=== PATIENT | female | born 1935 | race Caucasian/White ===

== ENCOUNTER 2017-10-06 12:40 | Emergency (ER) | payer MEDICARE, SELFPAY ==
[2017-10-06 12:41] VITALS: BP 212/99; PULSE 59; RESP 16; TEMP 36.2; O2SAT 96; BMI 29.2
--- NOTE | 2017-10-06 13:00 | RAD_ITS ---
STUDY: X-RAY - RIGHT ANKLE REASON FOR EXAM: Female, 81 years old. Pain following a fall. TECHNIQUE: 3 view(s) of the ankle. COMPARISON: None. FINDINGS: Normal visualized distal tibia and fibula. Normal medial and lateral malleoli. Normal tibiotalar articulation and ankle mortise. Plantar spur. The visualized subtalar, talonavicular, calcaneocuboid and tarsal articulations are normal. Diffuse soft tissue swelling. RAD/Ankle min 3 Views IMPRESSION: Diffuse soft tissue swelling. Electronically Signed: Hans Puga MD at 13:37 EDT Tel [phone], Service support ,
--- NOTE | 2017-10-06 13:07 | RAD_ITS ---
STUDY: X-RAY - LEFT WRIST REASON FOR EXAM: Female, 81 years old. Pain following a fall. TECHNIQUE: 3 view(s) of the wrist were obtained. COMPARISON: None. FINDINGS: There is a comminuted nondisplaced fracture of the distal radial metaphysis with dorsal angulation of the articular surface. Avulsion fracture of the ulnar styloid. Normal radiocarpal articulation. Normal distal radioulnar articulation. Normal carpal bones. Normal carpal articulations. There is degenerative arthrosis of the carpometacarpal articulation of the thumb. Normal second through fifth carpometacarpal articulations. Normal visualized metacarpal bones. Soft tissue swelling. RAD/Wrist min 3 Views IMPRESSION: Comminuted fracture of the distal radial metaphysis with dorsal facing. Avulsion fracture of the ulnar styloid. Soft tissue swelling. Electronically Signed: Hans Puga MD at 13:36 EDT Tel [phone], Service support ,
--- NOTE | 2017-10-06 14:43 | ED.VISSUMM ---
- ER Visit Summary Date of Service: 10/06/17 Chief Complaint: [] History of Present Illness: The patient is a 81 F who was working in her bedroom cleaning out dressings. She went to stand up and her hand slipped and she fell. She sustained a FOOSH injury to the left nondominant wrist. She also notes pain to the and swelling to the right ankle. She is on orthopedic surgeon last year but she is not sure who it was. Patient denies any other injuries. She does note that her blood pressure has been significantly elevated recently. She has been working with her doctor to adjust the medications. She is not concerned with her elevated blood pressure Physical Examination: Afebrile vital signs are stable noted hypertension Gen: Well-nourished well-developed Head: Normocephalic atraumatic Eyes: Perrl EOMI ENT: TMs clear no rhinorrhea moist mucous membranes Neck: Supple no lymphadenopathy no JVD nontender CVS: Regular rate rhythm no murmurs normal S1-S2 Respiratory: No distress clear to auscultation bilaterally chest nontender Abdomen: Soft nontender nondistended normal bowel sounds no masses Back: Nontender Extremity: There is a left wrist deformity. Neurovascular intact distally. The right ankle shows swelling over the lateral malleolus. No fibular head tenderness no fifth metatarsal tenderness medially there is no pain or swelling Skin: Normal color no rash Neuro: alert orientated ?3 CN II-XII intact normal strength sensation reflexes gait cerebellar Psych: Normal affect normal mood Test Results: Ankle x-rays showed no fracture. The wrist films demonstrated a comminuted distal radius fracture with ulnar styloid fracture noted displacement. Emergency Department Course and Treatment: I spoke with Dr. Bowens. I placed her in the AP plaster splint. I will write her for [place] and have her follow-up in the office. For the ankle should be placed in an air splint. Impression: 1. Right ankle sprain 2. Left distal radius and ulnar fracture 3. Splint by emergency physician This note was generated with [place] 100e dictation software. It may contain incorrect words, spelling, and punctuation that were not noted in review of the chart prior to signing ED Disposition - Plan for ED Patient: Disposition: Home or Assisted Living Chief Complaint: Fall Instructions: ED Fx Wrist General Prescriptions: Hydrocodone Bitart/Apap 5-325 [[place] 5/325] 1 tab PO Q6H PRN PRN 3 Days #12 tab PRN Reason: Pain Referrals: Jacob Bowens DO [STAFF PHYSICIAN] - As soon as possible
== END 2017-10-06 15:25 | disposition home or self-care (01) ==
PROVIDERS: Emergency Provider Emergency Medicine; Family Provider Internal Medicine; PCP Internal Medicine
DX: S52.612A Displaced fracture of left ulna styloid process, initial encounter for closed fracture (principal); S52.502A Unspecified fracture of the lower end of left radius, initial encounter for closed fracture; S93.401A Sprain of unspecified ligament of right ankle, initial encounter; W01.0XXA Fall on same level from slipping, tripping and stumbling without subsequent striking against object, initial encounter; Y93.E9 Activity, other interior property and clothing maintenance; Y92.003 Bedroom of unspecified non-institutional (private) residence as the place of occurrence of the external cause; Y99.9 Unspecified external cause status; I10 Essential (primary) hypertension; Z79.82 Long term (current) use of aspirin; Z79.899 Other long term (current) drug therapy; Z87.891 Personal history of nicotine dependence
CPT/HCPCS: 29125; 73110; 73610; 99284

== ENCOUNTER 2017-10-14 07:57 | Day surgery (SDC) | payer MEDICARE, SELFPAY ==
[2017-10-14] VITALS (7 sets, daily range): BP systolic 171–205; BP diastolic 64–95; PULSE 45–68; RESP 14–16; TEMP 35.7–36.2; O2SAT 93–98; BMI 29.0
--- NOTE | 2017-10-14 08:05 | EKG12_ITS ---
Test Reason : PRE OP Blood Pressure : / mmHG Vent. Rate : 055 BPM Atrial Rate : 055 BPM P-R Int : 178 ms QRS Dur : 084 ms QT Int : 438 ms P-R-T Axes : 070 018 062 degrees QTc Int : 419 ms Sinus bradycardia with Premature atrial complexes Nonspecific ST segment abnormality Confirmed by RAINA FERNANDEZ, JAMES ([id number]), metropolitan editor ROBERTO HERBERT ([id number]) on 10/16/2017 1:46:47 PM Referred By: Teresa Morris Confirmed By:JAMES PARIS MD
[2017-10-14 08:45] LABS: Hematocrit 35.1 % (37-47); Hemoglobin 11.5 g/dl (12.0-15.0); Mean Corp Hgb Conc 32.8 g/gl (32-36); Mean Corpuscular Hgb 31.9 pg (27.0-32.0); Mean Corpuscular Volume 97.2 fL (81-99); Platelet Count 224 K/mm3 (150-450); RBC Distribution Width CV 12.6 % (11.6-14.6); Red Blood Count 3.61 M/mm3 (4.2-5.4); White Blood Count 6.4 K/mm3 (4.4-11.0)
[2017-10-14 08:46] LABS: Scan Indicated on CBC? Y/N NO
[2017-10-14 08:54] LABS: Anion Gap 8 (5-15); BUN 18 mg/dL (7-18); BUN/Creat Ratio 25.6 RATIO (10-20); Calcium,Total 8.8 mg/dL (8.5-10.1); Chloride 109 mmol/L (98-107); EST Glomerular Filtration Rate 85 mL/min (>60); Est Glom Filt Rate - Afr Amer 103 mL/min (>60); Estimated Creatinine Clearance 37.12 ml/min; Glucose 106 mg/dL (74-106); Potassium 3.6 mmol/L (3.5-5.1); Sodium Level 144 mmol/L (136-145)
--- NOTE | 2017-10-14 09:08 | RAD_ITS ---
STUDY: X-RAY - LEFT WRIST REASON FOR EXAM: ORIF of left wrist. TECHNIQUE: 2 fluoroscopic view(s) of the wrist were obtained. COMPARISON: Radiographs 10/06/2017. FINDINGS: There is an orthopedic plate and screws transfixing a distal radial fracture in anatomical alignment and position. There is an ulnar styloid process avulsion fracture. There is arthrosis of the triscaphe articulation. Electronically Signed: Lex Jiménez MD at 12:22 EDT Tel , Service support , RAD/Wrist 2 Views
--- NOTE | 2017-10-14 09:12 | DCINST_ITS ---
Discharge Diet: No Restrictions - keep dressing clean, dry, and intact; elevate above heart, move fingers as much as possible, call with concerns, follow up in 2 weeks Discharge Activity: May Not Drive May shower in (days): 1 Ice area for (Minutes): 20 - Every hour while awake. Weight Bearing Status: Weight bearing as tolerated Keep extremity elevated above heart level: Operative Extremity Call your doctor if your incision/area has: Continuous Slow Oozing, Sudden Increased Bleeding, Increased Pain/ Swelling, Increased Redness, Foul Smelling Discharge Call your doctor if you observe: Fever of 101 or Higher, Coldness, Increased Pain, Numbness or Tingling, Change in Color, Calf discomfort Allergies/Adverse Reactions: Allergies amantadine Allergy (Verified 10/08/17 08:22) Rash cephalexin Allergy (Verified 10/08/17 08:22) Rash erythromycin base Allergy (Verified 10/08/17 08:22) Rash hydrochlorothiazide Allergy (Verified 10/08/17 08:22) Rash IVP DYE Allergy (Uncoded 04/13/17 17:28) Rash Medications to take at Discharge Alendronate Sodium [Fosamax] 70 mg PO Q7D@0700 12/06/16 Aspirin [Aspirin, Baby] 81 mg PO DAILY@0800 12/06/16 Atenolol [Tenormin (beta alejandra)] 25 mg PO DAILY 12/06/16 Atorvastatin Calcium [Lipitor] 20 mg PO QHS 12/06/16 Brimonidine Tartrate [Alphagan P] 1 drop EACHEYE DAILY 12/06/16 Calcium Carbonate/Vitamin D3 [Calcium 600-Vit D3 800 Tablet] 1 each PO DAILY 04/14 Cholecalciferol (Vitamin D3) [Vitamin D3] 2,000 unit PO DAILY 12/06/16 Clobetasol Propionate 15 gm TP DAILY 12/06/16 Latanoprost 0.005% [Xalatan Opthalmic] 1 drop RIGHT EYE QHS 12/06/16 Losartan Potassium [Cozaar] 100 mg PO DAILY 12/06/16 Multivit-Min/FA/Lycopen/Lutein [Centrum Silver Tablet] 1 each PO DAILY 12/06/16 Timolol 0.5% [Timoptic] 1 drop EACH EYE BID 12/06/16 Hydrocodone Bitart/Apap 5-325 [[place] 5/325] 1 tab PO Q6H PRN PRN 3 Days #12 tab 10/06/17 Terazosin HCl [Hytrin] 2 mg PO QHS 10/06/17 Furosemide [Lasix] 20 mg PO QODAY 10/13/17 Potassium Chloride 10 meq PO QODAY 10/13/17 Hydrocodone Bitart/Apap 5-325 [[place] 5MG-325MG] 1 - 2 tablet PO Q6H PRN PRN 5 Days #56 tablet 10/14/17 The following prescriptions were given: Hydrocodone Bitart/Apap 5-325 [[place] 5MG-325MG] 1 - 2 tablet PO Q6H PRN PRN 5 Days #56 tablet PRN Reason: Pain Primary Care Physician: Anay Barnard MD [Primary Care Provider] - Please Follow Up With: Teresa Morris, - [phone]
--- NOTE | 2017-10-14 09:12 | OP.PCM_ITS ---
Report of Operation Date of Procedure: 10/14/17 Pre-Operative Diagnosis: left distal radius fracture Post-Operative Diagnosis: same Surgery/Procedure Performed:: orif left distal radius Type of Anesthesia:: General Anesthesiologist: Kai Marrero Estimated Blood Loss (mL): minimal Fluids Replaced: 700cc lr Description of Procedure: Preoperative note An 81-year-old female who fell onto outstretched left wrist. Deformity on x- ray confirms left distal radius fracture patient was seen in the emergency room x-rayed and then seen in the clinic by myself. Wrist benefits and alternatives surgery discussed with patient. Patient is fairly osteoporotic bone we did discuss the option of pinning and cast however family elected proceed with left distal radius open reduction internal fixation repair is indicated. Risks including but not limited to blood loss, blood clot, infection, neurovascular injury, failure procedure, loss of life and loss of limb. Family is aware would like proceed as above. operative note Patient seen and examined preoperative holding area. Left arm is marked. Patient is brought to the operating room placed supine on the operating table. Signing, anesthesia, antibiotics were administered. Left arm was prepped and draped in usual sterile fashion with a tourniquet around her upper arm. Used fluoroscopy to measure out the length of our incision. Timeout was performed. The left arm was elevated exsanguinated tourniquet was raised to pressure of 250 torr. Then used a 15 blade cut the skin dissect down with tenotomy to the level of the FCR the FCR was then removed ulnarly and dissected down to the FCR fascia was then excised we then moved down to the pronator quadratus which was excised sharply from its radial insertion and swept ulnarly as well. We then were able to visualize the fracture site. We pulled some tension on the traction on the distally were able to then debride out the fracture site of dental pick and irrigated the incision with copious amounts sterile saline. We then measured out our 2.4 variable angle locking plate which was placed and confirmed on AP and lateral radiographs using a guidewire K wire to transfix the plate to the bone. We then started with a cortical screw into the radial styloid this is measured appropriately and started drilled and measured appropriately and then placed the screws and transfixed the plate down to bone. We then refill the remaining screws distally with locking screws Due to her quite osteoporotic bone. At that point we did have the most proximal aspect of the plate a little bit elevated off the bone to the bio transfix the proximal end of the plate to the bone we increase her volar tilt were able to get her back to neutral. We then placed 2 cortical screws in the proximal aspect of the plate these were both 14 mm 2.7 cortical screws and again in the proximal shaft. This brought the plate down the bone and also increase her volar tilt back to get back to neutral. We placed 1 more 2.4 locking screw in the ulnar piece just distal just proximal to the most distal row. This is just for further fixation due to her osteophytic bone hernández. We confirmed in multiple planes AP lateral PA as well as the 20? lateral to ensure that we were not in the joint which were not. We irrigated the incision with copious amounts of sterile saline. The incision was closed with 3-0 subcutaneous and a running 4- 0 Monocryl sterile dressings and a splint was applied. Patient tolerated procedure well there are no complications the tourniquet was deflated for total working time of 60 minutes. Patient was transferred to recovery room in stable condition there were no complications. 2.4 variable angle locking screws were used 114, 418, 120 2.7 cortical screws we is 14 point millimeters, 2 Postoperative note Hospital pharmacy has pain prescription next Discussed at length the importance of flexing and extending hands to prevent stiffness Follow-up in 2 weeks Keep splint clean and dry Call with concerns This note was generated with [employer] in [employer] software. It may contain incorrect words, spelling, and punctuation that were not noted in checking the note before signing.
[2017-10-14] MEDS: Clindamycin 900 MG/50 ML BAG 75 MG IV (09:15)
[2017-10-14] MEDS: Mupirocin Ointment 22gm Tube 1 APPLIC (09:40)
== END 2017-10-14 14:25 | disposition home or self-care (01) ==
LOC: SDC 07:57 → AC 07:58
PROVIDERS: Family Provider Internal Medicine; PCP Internal Medicine; Visit Provider Orthopaedic Surgery
PROC: (CPT 25607; principal; 2017-10-14 09:15)
DX: S52.592A Other fractures of lower end of left radius, initial encounter for closed fracture (principal); W19.XXXA Unspecified fall, initial encounter; Y93.9 Activity, unspecified; Y92.9 Unspecified place or not applicable; Y99.9 Unspecified external cause status; I27.20 Pulmonary hypertension, unspecified; K21.9 Gastro-esophageal reflux disease without esophagitis; Z78.0 Asymptomatic menopausal state; Z79.82 Long term (current) use of aspirin; Z79.899 Other long term (current) drug therapy; Z87.891 Personal history of nicotine dependence
CPT/HCPCS: 01830; 25607; 73100; 76000; 80048; 85027; 93005; J7120; J2405

== ENCOUNTER → 2017-10-27 12:38 | Outpatient (CLI) | payer MEDICARE, SELFPAY ==
--- NOTE | 2017-10-27 12:40 | RAD_ITS ---
STUDY: X-RAY - LEFT WRIST REASON FOR EXAM: Pain. TECHNIQUE: 3 view(s) of the wrist were obtained. COMPARISON: Fluoroscopic views 10/14/2017. FINDINGS: There is an orthopedic plate and screws transfixing a distal radial fracture in anatomic position and alignment. There is an ulnar styloid process avulsion fracture. Normal radiocarpal articulation. Normal distal radioulnar articulation. Normal carpal bones. There is joint space narrowing of the triscaphe articulation. There is joint space narrowing of the carpometacarpal articulation of the thumb. Normal second through fifth carpometacarpal articulations. Normal visualized metacarpal bones. There is an overlying cast. RAD/Wrist min 3 Views IMPRESSION: ORIF of distal radial fracture without interval change. 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 Electronically Signed: Lex Jiménez MD at 16:20 EDT Tel , Service support ,
== END ==
PROVIDERS: Family Provider Internal Medicine; PCP Internal Medicine; Visit Provider Orthopaedic Surgery
DX: S52.502A Unspecified fracture of the lower end of left radius, initial encounter for closed fracture (principal); X58.XXXA Exposure to other specified factors, initial encounter; Y93.9 Activity, unspecified; Y92.9 Unspecified place or not applicable; Y99.9 Unspecified external cause status
CPT/HCPCS: 73110

== ENCOUNTER 2017-11-24 11:00 | Outpatient (RCR) | payer MEDICARE, SELFPAY ==
--- NOTE | 2017-11-24 12:50 | HP.OTEVAL ---
Patient's Visit Information BERNADETTE ELIZABETH is a 81 year old F, referred to Occupational Therapy by Teresa Morris DO, with a diagnosis of left wrist fx. Date of Evaluation: 10/28/17 Occupational Therapist: Faustina Cheney, OTR/L, CHT - Subjective Subjective: Pt states she broke her left wrist on October 06, 2017, states she fell back on her wrist while cleaning her room. pt underwent sx on October 14, 2017. Pt is right handed, and was ind. with all BADLS and IADLs. - Pain left forearm 4 Pain Intensity Range: 1, 8 - ROM Forearm: right supination 80 left 45 Wrist: right 70/65 left 35/25 ROM Comments: pt demo limited composite fist on carlos: 1# from closer - Strength Php Website Developer: right 60# left unable Lateral Pinch: right 6# left NT Tripod Pinch: right 4# left NT - Sensation Sensation Comments: denies any changes - Hand/Wrist Evaluation Total Score of Pain & Functional Sections: 14 - Goals Goal:: pt will demo a increase in left environmental remediation specialist strength by 25# or greater to increase pts ind.with BADLs and IADLS by d/c Goal:: pt will demo increase in left wrist flex/ext by 15 degrees or greater - a increase in left forearm supination to 70 degress or greater to increase ind with BADLs and IADLS Goal:: pt will report pain no greater than 2/10 with use of left hand for BADLS and IADLS by d/c Goal:: pt will demo understanding of scar mtg and desensitization by end of 1st session. - Rehabilitation General Assessment: S/P left wrist ORIF on October 14, 2017. pt demo limited wrist, forearm ROM and a decrease in pts left environmental remediation specialist and pinch strength. The limitations increase need of assistance with pts BADLS and IADLS. pt would benefit from skilled OTR/L, CHT services to increase pts return of her ROM and strength. Due to pts high co-pay- pt request HEP- pt was given HEP of PROM.AROM and to return in 3 weeks to progress pt to a PRE. pt and pts family is agreeable to this POC. Rehabilitation Potential: Excellent - Anticipated Interventions Anticipated Interventions: A/AAROM/PROM, Strengthening, Scar Care, Triggerpoint Release, Modalities, Joint Protection/Energy Conservation, Fine Motor Coord/Ady - Visit Plan Frequency: one visit in 3 weeks TEXT: Thank you for the opportunity to evaluate your patient. For Medicare and Medicare HMO plans, please review the plan of care and approve it. It will need to be FAXED BACK to us at [phone] for Medicare purposes. Please let me know if there are questions or concerns regarding this plan of care. Physician Signature: Date:
--- NOTE | 2017-11-24 12:51 | HP.OTDCSUM_ITS ---
HP - OT D/C Summary It has been my pleasure to treat BERNADETTE ELIZABETH under orders from Teresa Morris DO, for the diagnosis of left wrist fx for a total of 2 visit(s). Please see the following information for a summary of their discharge status. - Overall Improvement % Improvement: 85 - Objective Objective/Function: left wrist 55/45 a increase from 35/25. left fisher troll line 10# increase from trace-(due to high insurance co-pay pt will progress with strength using HEP) - Goals Patient Goals: Regain Mobility, Regain Strength, Decrease Pain, Improve Fine Motor Skills, Use Hand/Wrist/Arm Normally Again, Increase ROM Goal:: pt will demo a increase in left fisher troll line strength by 25# or greater to increase pts ind.with BADLs and IADLS by d/c Goal:: pt will demo increase in left wrist flex/ext by 15 degrees or greater - a increase in left forearm supination to 70 degress or greater to increase ind with BADLs and IADLS Goal:: pt will report pain no greater than 2/10 with use of left hand for BADLS and IADLS by d/c Goal:: pt will demo understanding of scar mtg and desensitization by end of 1st session. - Plan Plan: D/C with HEP due to high co-pay - D/C Information Discharge Comments: Due to pts high co-pay- pt was given HEP at inital OT session- pt has made good gains with her ROM and was given PRE today to cont with increasing her strength- pt is ind.with all BADLS and IADLS at this time- pt states most pain is at night when trying to sleep- therapist rec'd most comfortable position is best and use brace as needed- If there are questions or concerns regarding this patient's occupational therapy , please fell free to call me at [phone]. Thank you for the referral of this patient. Sincerely, Faustina Cheney, OTR/L, CHT
== END 2017-11-24 19:00 | disposition home or self-care (01) ==
LOC: OT 11:00
PROVIDERS: Family Provider Internal Medicine; PCP Internal Medicine; Visit Provider Orthopaedic Surgery
DX: Z98.890 Other specified postprocedural states (principal)
CPT/HCPCS: 97110; 97166; 97530

== ENCOUNTER 2018-02-04 11:43 | Observation (INO) | payer MEDICARE, SELFPAY ==
[2018-02-04] VITALS (14 sets, daily range): BP systolic 132–196; BP diastolic 51–92; PULSE 40–67; RESP 14–24; TEMP 36.3–36.6; O2SAT 93–99; BMI 28.5; BMI 26.9
--- NOTE | 2018-02-04 11:54 | RAD_ITS ---
STUDY: X-RAY CHEST REASON FOR EXAM: Female, 82 years old. Chest pain for 6 hours. TECHNIQUE: Single AP upright portable chest view. COMPARISON: 04/13/2017 FINDINGS: EKG wires overlie chest and upper abdomen. Lungs appear well ventilated and clear of active focal pulmonary consolidation with air bronchograms, large pleural effusion or abnormally dilated pulmonary vascularity. There is no demonstrated pleural abnormality. No large gross pneumothorax suggested. Mildly enlarged heart for projection. Normal mediastinum and myke. Normal visualized pulmonary arteries. Moderately calcified visualized aortic knob. Nonacute visualized thoracic spine, ribs, clavicles and shoulders. There is no demonstrated abnormality of the visualized soft tissue structures of the upper abdomen. No subdiaphragmatic free air seen grossly. RAD/Chest 1 View (Portable) IMPRESSION: No active pulmonary disease identified. Mild cardiomegaly. Clinical correlation for cardiomyopathy and/or pericardial effusion recommended. Electronically Signed: Fabian Whaley, at 13:31 EDT Tel , Service support ,
[2018-02-04 12:13] LABS: Absolute Lymphocyte Count 1.38 X10^3/ul (0.83-4.51); Absolute Neutrophil Count 4.4 X10^3/uL (2.0-7.7); Basophil# 0.02 X10^3/uL; Basophil% 0.3 % (0-1); Eosinophil# 0.19 X10^3/uL; Hematocrit 41.3 % (37-47); Hemoglobin 13.4 g/dl (12.0-15.0); Lymphocyte # 1.38 X10^3/ul (4.0); Mean Corp Hgb Conc 32.4 g/gl (32-36); Mean Corpuscular Hgb 30.4 pg (27.0-32.0); Mean Corpuscular Volume 93.7 fL (81-99); Mean Platelet Vol. 10.4 fl (6.2-12.0); Monocyte# 0.29 X10^3/uL; Monocyte% 4.6 % (0-10); Neutrophil # 4.38 X10^3/uL (2.7-7.7); Neutrophil % 70.1 % (47-70); POSITIVE COUNT NO; POSITIVE DIFFERENTIAL NO; POSITIVE MORPHOLOGY NO; Platelet Count 188 K/mm3 (150-450); RBC Distribution Width CV 12.9 % (11.6-14.6); RBC Distribution Width SD 44.4 fl (35.1-43.9); Red Blood Count 4.41 M/mm3 (4.2-5.4); White Blood Count 6.3 K/mm3 (4.4-11.0)
[2018-02-04] MEDS: Aspirin 81 MG TAB.CHEW 324 MG PO (12:17)
[2018-02-04 12:29] LABS: Anion Gap 7 (5-15); BUN 17 mg/dL (7-18); BUN/Creat Ratio 19.6 RATIO (10-20); Calcium,Total 8.8 mg/dL (8.5-10.1); Chloride 106 mmol/L (98-107); Creatinine, Serum 0.87 mg/dL (0.55-1.02); EST Glomerular Filtration Rate 67 mL/min (>60); Est Glom Filt Rate - Afr Amer 80 mL/min (>60); Estimated Creatinine Clearance 40.11 ml/min; Glucose 155 mg/dL (74-106); Potassium 3.9 mmol/L (3.5-5.1); Sodium Level 140 mmol/L (136-145)
--- NOTE | 2018-02-04 13:06 | ED.DCSUM_ITS ---
- ER Visit Summary Date of Service: 02/04/18 Chief Complaint: [chest pain] History of Present Illness: The patient is a 82 F [that presents with 5-6 hours of substernal nonradiating chest tightness that began around 6:30 AM this morning. She denies any exacerbating or relieving factors. No associated nausea, vomiting, diaphoresis, or shortness of breath. She had a heart cath in 2003 that she states was normal. She has her cardiac risk factors including hypertension and hypercholesterolemia. No DVT or PE history or risk factors. She denies any shortness of breath. No symptoms of orthopnea. She has no other complaints. No recent fever or illness.] Physical Examination: [General: The patient appears well and in no apparent distress. Patient is resting comfortably on cart. Skin: Warm, dry, no pallor noted. No rash. Head: Normocephalic, atraumatic Neck: Supple, nontender. Eye: PERRLA, EOMI ENT: Moist mucus membranes, pharynx within normal limits. Cardiovascular: Regular Rate and Rhythm, no gallups or rubs Respiratory: Patient is in no distress, no accessory muscle use, lungs are clear to auscultation, no wheezing, rales or rhonchi Musculoskeletal: normal ROM, no deformity, no tenderness, no swelling. 2+ radial and DP pulses symmetric. GI: No tenderness to palpation, no masses appreciated. No rebound, guarding, or rigidity noted. Neurological: A&O, normal strength and sensation. Psychiatric: Cooperative] Test Results: [EKG shows sinus rhythm with a rate of 64, nonspecific ST and T- wave changes, no acute ischemic changes or arrhythmia. Overall unchanged from prior EKG September 2017. CBC and BMP within normal limits. Troponin indeterminate at 0.112. Chest x-ray shows no acute process on my evaluation.] Emergency Department Course and Treatment: [Patient was given aspirin and nitroglycerin. Following nitro on reevaluation at 1247 her pain is resolved and her blood pressure is improved. She denies any chest pain or shortness of breath. She is currently pain-free. At this time I feel she requires admission for further cardiac evaluation. Patient is agreeable with this plan. Patient was discussed with the hospitalist for admission.] Treatment Plan: [See above] Disposition: [Admission] Impression: [Chest Pain, indeterminate troponin] This note was generated with Dragon dictation software. It may contain incorrect words, spelling, and punctuation that were not noted in review of the chart prior to signing ED Disposition - Plan for ED Patient: Chief Complaint: Chest Pain Referrals: Anay Barnard MD [Primary Care Provider] -
--- NOTE | 2018-02-04 14:46 | ECHOD_ITS ---
Reason For Study: CHEST PAIN Procedure This was a 2D Doppler, Color Flow transthoracic echocardiogram. Exam performed portable in patient room. Left Ventricle Normal size and thickness. The estimated ejection fraction is 65 %. Normal diastology for age. No regional wall motion abnormalities noted. Right Ventricle Normal size and thickness. Normal systolic function. Atria Normal left atrium. Normal right atrium. Normal atrial septum. Mitral Valve The mitral valve is structurally normal. No prolapse or stenosis seen. Tricuspid Valve Normal tricuspid valve. Trivial tricuspid valve insufficiency. Right ventricular systolic pressure estimated to be 33 mmHg. Aortic Valve Normal aortic valve. Trisinus/trileaflet aortic valve. Pulmonic Valve Normal pulmonic valve. Trivial pulmonic valve insufficiency. Great Vessels Normal aortic root. Normal arch. Normal inferior vena cava. Inferior vena cava collapse with sniff. Pericardium/Pleural No pericardial effusion. MMode/2D Measurements & Calculations LVIDd: 3.6 cm IVSd: 0.96 cm Ao root diam: 3.2 cm LVIDs: 2.5 cm LVPWd: 0.92 cm LA dimension: 3.8 cm RVDd: 2.5 cm FS: 31.9 % LAV(MOD-bp): 51.9 ml LA A4 area: 18.2 cm2 RA A4 area: 11.1 cm2 LAV(MOD-bp) Indexed: 30.2 ml/m2 LAV(MOD-sp2): 52.6 ml LAV(MOD-sp4): 51.5 ml Doppler Measurements & Calculations MV E max antonio: 77.9 cm/sec Lat Peak E' Antonio: 4.6 cm/sec Med Peak E' Antonio: 3.9 cm/sec MV A max antonio: 85.2 cm/sec E/E' lat: 17.0 E/E' med: 19.8 MV E/A: 0.91 Ao V2 max: 111.0 cm/sec LV V1 max: 95.9 cm/sec PA V2 max: 92.8 cm/sec Ao max P.9 mmHg LV V1 max P.7 mmHg TR max antonio: 248.1 cm/sec TR max P.9 mmHg Interpretation Summary The estimated ejection fraction is 65 %. Normal diastology for age. Trivial tricuspid valve insufficiency. Right ventricular systolic pressure estimated to be 33 mmHg. Compared to echo report dated 04/13/2017, LV function has remained the same, but RVSP has decreased from 60to 33 mm Hg. Ordering Physician: Garett Romero Referring Physician: Teresa Morris Performed By: Denise Ron, JAMESCS, RVT
[2018-02-04] MEDS: Heparin Injection (Vial) 5,000 UNIT/ML VIAL 5000 UNIT SC ×2 (16:43→21:54)
[2018-02-04] MEDS: Clopidogrel Bisulfate 300 MG Tablet PO (16:52)
--- NOTE | 2018-02-04 17:10 | PCM.HP.STD ---
Problem List (1) Chest pain Status: Acute (2) HLD (hyperlipidemia) Status: Chronic (3) HTN (hypertension) Status: Chronic History of Present Illness Date of Admission: 02/04/18 Chief Complaint: chest pain The patient is a 82 year old F who presents to the ER with c/c of chest pain. The pain woke her up about 0630 today. She describes it as a midsternal pressure radiating across her back, not radiating into her neck/arms. She has some associated nausea and broke into a hot sweat. It was a constant pain that resolved in the ER about 1300 after receiving asa and nitro in the ER. She had a similar pain about 3 weeks ago, and also about a year ago at which point she came to the hospital and had a chest pain workup including negative stress and was sent home. She has had a cath in 2013 with [facility] without any stents placed. Mom, dad, brother, and sister all had CAD. She smoked about 40 years ago for only a few years according to her. [] Past Medical History Past Medical History (Chronic Problems): Chronic Problems (Last Updated 10/08/17 @ 08:24 by Kayla Storm) HLD (hyperlipidemia) (Chronic) HTN (hypertension) (Chronic) Medical History: Medical History (Last Updated 10/08/17 @ 08:24 by Kayla Storm) Hernia K46.9 Allergies amantadine Allergy (Verified 02/04/18 12:13) Rash cephalexin Allergy (Verified 02/04/18 12:13) Rash erythromycin base Allergy (Verified 02/04/18 12:13) Rash hydrochlorothiazide Allergy (Verified 02/04/18 12:13) Rash IVP DYE Allergy (Uncoded 02/04/18 12:13) Rash Home Medications: Ambulatory Orders Medication Instructions Recorded Alendronate Sodium [Fosamax] 70 mg PO Q7D@0700 12/06/16 Aspirin [Aspirin, Baby] 81 mg PO DAILY@0800 12/06/16 Atenolol [Tenormin (beta alejandra)] 25 mg PO DAILY 12/06/16 Atorvastatin Calcium [Lipitor] 20 mg PO QODAY 12/06/16 Brimonidine Tartrate [Alphagan P] 1 drp RIGHT EYE DAILY 12/06/16 Calcium Carbonate/Vitamin D3 1 ea PO DAILY 12/06/16 [Calcium 600-Vit D3 800 Tablet] Cholecalciferol (Vitamin D3) 2,000 unit PO DAILY 12/06/16 [Vitamin D3] Clobetasol Propionate 15 gm TP DAILY 12/06/16 Latanoprost 0.005% [Xalatan 1 drp EACHEYE QHS 12/06/16 Opthalmic] Losartan Potassium [Cozaar] 100 mg PO DAILY 12/06/16 Multivit-Min/FA/Lycopen/Lutein 1 ea PO DAILY 12/06/16 [Centrum Silver Tablet] Timolol 0.5% [Timoptic] 1 drp RIGHT EYE BID 12/06/16 Terazosin HCl [Hytrin] 20 mg PO QHS 10/06/17 Furosemide [Lasix] 20 mg PO DAILY 10/13/17 Potassium Chloride 10 meq PO QODAY 10/13/17 Surgical History: Surgical History (Last Updated 10/27/17 @ 12:37 by Kayla Storm) s/p left wrist ORIF 10/14/17 Surgical History: herniorrhaphy Psychiatric History: No pertinent psych hx 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 Denies: Light Headedness, Orthopnea, Palpitations, Paroxysmal Noc. Dyspnea, Syncope Respiratory: Denies: Cough, Shortness of breath at rest, Sputum production Gastrointestinal: Reports: Nausea. Denies: Abdominal Pain, Vomiting Genitourinary: Denies: Dysuria Musculoskeletal: Denies: Joint Pain, Joint Tenderness Skin: Denies: Rash, Wounds Neurological: Denies: Numbness, Tingling, Focal weakness Psychiatric: Denies: Anxiety, Depression, Homicidal Ideations, Suicidal Ideations Hematologic/ Lymphatic: Denies: Easy Bruising, Easy Bleeding VTE Information - Inpt Only VTE Present on Admission: No VTE Mechan Device Prophylaxis: None VTE Pharm Prophylaxis ordered?: Yes - Physical Exam General: Alert, Oriented x3, Cooperative HEENT: Atraumatic, PERRLA, EOMI, Normocephalic Neck: Supple, No JVD, Negative Carotid Bruits Lungs: Clear to auscultation, Normal air movement Cardiovascular: Regular rate, No murmurs Abdomen: Bowel Sounds Present, Soft, Non Tender Extremities: No edema, Capillary Refill Less than 3 Seconds Skin: No rashes, No breakdown Musculoskeletal: No Tenderness to Palpation of Joints or Extremities Neurological: Cranial nerves II-XII grossly intact Psych/Mental Status: Normal Affect, Appropriate Vital Signs Temp Pulse Resp BP Pulse Ox 97.4 F L 63 18 176/53 H 98 02/04/18 14:30 02/04/18 14:30 02/04/18 14:30 02/04/18 14:30 02/04/18 14:30 Oxygen Delivery Method Room Air Weight: 149 lb 4.047 oz Body Mass Index (BMI) 26.9 Laboratory Tests Past 24 Hrs 02/04/18 16:04 Troponin I 0.177 H Assessment/Plan All Active Problems (Last Updated 10/08/17 @ 08:24 by Kayla Storm) Chest pain (Acute) 1. Chest pain - indeterminate troponin. Negative stress <1 year ago. Strong family hx. Consult cardiology. Pt will be placed in PCU on tele. Cycle enzymes. Repeat EKG in AM. Nitro PRN. Continue asa, plavix, statin, atenolol, losartan. Echo pending. 2. HTN - poorly controlled. trend and adjust meds as needed. 3. HLD - on statin. check lipid panel. 4. Hyperglycemia - check a1c. DVT ppx: heparin This patient was seen by Samm Sidhu PA-C under the supervision of Doctor Romero.
--- NOTE | 2018-02-04 17:38 | PCM.CONS.C ---
Problem List (1) HLD (hyperlipidemia) Status: Chronic (2) HTN (hypertension) Status: Chronic (3) Chest pain Status: Acute Reason for Consult Date of Consultation: 02/04/18 Reason for Consultation: Chest pain, abnormal troponin, hypertension, hyperlipidemia History of Present Illness: The patient is a 82 year old F, with a history of hypertension, hypercholesterolemia, nondiabetic, no previous known coronary disease, previously admitted in March 2017 with substernal chest pain and pressure which woke her up from a sound sleep. She was ruled out for myocardial infarction underwent a non-walking nuclear stress test at [facility] which was negative for inducible ischemia. Patient was in normal health up until this morning when she developed 9 out of 10 substernal chest pressure and heaviness that woke her up from a sound sleep. The pain lasted about 4 5 hours, and when it did not go away, she was brought emergently to the emergency room at [facility] an EKG showed normal sinus rhythm, normal axis, normal intervals, no acute changes. Chest x-ray was negative except for mild cardiomegaly. Her blood pressure was found to be 172/92, the patient was given 1 sublingual nitroglycerin and her pain resolved. Her initial troponin was 0.112 and increase to 0.177. She is currently chest pain-free. Patient admits to having a previous catheterization in 2003 which was reportedly normal per the patient. She denies having any stents. On further history she denies any change in her exercise capacity, exertional angina, shortness of breath or dyspnea on exertion. She reports she is compliant with her medications.. [] Past Medical History Allergies/Adverse Reactions: Allergies amantadine Allergy (Verified 02/04/18 12:13) Rash cephalexin Allergy (Verified 02/04/18 12:13) Rash erythromycin base Allergy (Verified 02/04/18 12:13) Rash hydrochlorothiazide Allergy (Verified 02/04/18 12:13) Rash IVP DYE Allergy (Uncoded 02/04/18 12:13) Rash Home Medications: Ambulatory Orders Medication Instructions Recorded Alendronate Sodium [Fosamax] 70 mg PO Q7D@0700 12/06/16 Aspirin [Aspirin, Baby] 81 mg PO DAILY@0800 12/06/16 Atenolol [Tenormin (beta alejandra)] 25 mg PO DAILY 12/06/16 Atorvastatin Calcium [Lipitor] 20 mg PO QODAY 12/06/16 Brimonidine Tartrate [Alphagan P] 1 drp RIGHT EYE DAILY 12/06/16 Calcium Carbonate/Vitamin D3 1 ea PO DAILY 12/06/16 [Calcium 600-Vit D3 800 Tablet] Cholecalciferol (Vitamin D3) 2,000 unit PO DAILY 12/06/16 [Vitamin D3] Clobetasol Propionate 15 gm TP DAILY 12/06/16 Latanoprost 0.005% [Xalatan 1 drp EACHEYE QHS 12/06/16 Opthalmic] Losartan Potassium [Cozaar] 100 mg PO DAILY 12/06/16 Multivit-Min/FA/Lycopen/Lutein 1 ea PO DAILY 12/06/16 [Centrum Silver Tablet] Timolol 0.5% [Timoptic] 1 drp RIGHT EYE BID 12/06/16 Terazosin HCl [Hytrin] 20 mg PO QHS 10/06/17 Furosemide [Lasix] 20 mg PO DAILY 10/13/17 Potassium Chloride 10 meq PO QODAY 10/13/17 Past Medical History (Chronic Problems): Chronic Problems (Last Updated 10/08/17 @ 08:24 by Kayla Storm) HLD (hyperlipidemia) (Chronic) HTN (hypertension) (Chronic) Surgical History: herniorrhaphy Psychiatric History: No pertinent psych hx 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 Denies: Shortness of Breath, Orthopnea, PND, Peripheral Edema, Palpitations, Lightheadedness, Dizziness, Near Syncope, Syncope Respiratory: Denies: Cough, Sputum Production, Hemoptysis Gastrointestinal: Denies: Hematemesis, Hematochezia, Melena Genitourinary: Denies: Dysuria, Hematuria Skin: Denies: Rash Subjectve: Patient laying in bed, no acute distress. Objective: Vital Signs Temp Pulse Resp BP Pulse Ox 97.4 F L 66 18 176/53 H 98 08/09/18 14:30 02/04/18 15:29 02/04/18 14:30 02/04/18 14:30 02/04/18 14:30 Oxygen Delivery Method Room Air Weight: 149 lb 4.047 oz Body Mass Index (BMI) 26.9 General: Awake, Alert, Oriented x 3 HEENT: PERRL, EOMI, Sclera Non Icteric Neck: Supple, Good ROM, No Lymph Node Enlargement Lungs: Clear to auscultation Cardiovascular: Regular Rhythm, Normal S1, Normal S2, No Murmurs, No Rubs, No Gallops 02/04/18 16:04: Troponin I 0.177 H Rhythm: EKG: As above ECHO: Pending Stress Test: Cardiac Cath: Pending PCI: CT Surgery: Holter monitor: EPS: PPM: CXR: Chest CT Scan: Assessment/Plan 1. Unstable angina: The patient has had a second episode of unstable angina which woke her up from a sound sleep, relieved with nitroglycerin, and abnormal troponins. Patient had a stress test in March 2017 which was negative for inducible ischemia. At this point I recommend the patient undergo a left her catheterization and coronary angiography to determine if she has any significant narrowings that may require intervention. To that end I recommend Plavix 3 mg ?1 now followed by 75 mg p.o. daily in addition to baby aspirin. She will continue her beta-alejandra, losartan, and I recommended nitroglycerin paste 1/2 inch every 8 hours to control her chest pain. If her coronary arteries show no significant coronary disease, she may require evaluation from a GI standpoint for esophageal spasm, particularly if she had just taken her alendronate recently. In addition I recommend a 2D echo with Doppler to determine if she has any pericardial disease, valvular abnormalities, or LV dysfunction. 2. Hyperlipidemia: The patient has a known history of hyperlipidemia. Recommend obtaining a fasting lipid profile. Continue Lipitor. 3. Thank you very much for the opportunity to participate in the cardiac care of your patient. Consultation time took place between 410 and 4:40 PM. Code Visit Inpatient E&M: 23762 Init Hosp L2
--- NOTE | 2018-02-04 17:43 | CON.PCM_ITS ---
Problem List (1) HLD (hyperlipidemia) Status: Chronic (2) HTN (hypertension) Status: Chronic (3) Chest pain Status: Acute Reason for Consult Date of Consultation: 02/04/18 Reason for Consultation: Chest pain, abnormal troponin, hypertension, hyperlipidemia History of Present Illness: The patient is a 82 year old F, with a history of hypertension, hypercholesterolemia, nondiabetic, no previous known coronary disease, previously admitted in March 2017 with substernal chest pain and pressure which woke her up from a sound sleep. She was ruled out for myocardial infarction underwent a non-walking nuclear stress test at [facility] which was negative for inducible ischemia. Patient was in normal health up until this morning when she developed 9 out of 10 substernal chest pressure and heaviness that woke her up from a sound sleep. The pain lasted about 4 5 hours, and when it did not go away, she was brought emergently to the emergency room at [facility] an EKG showed normal sinus rhythm, normal axis, normal intervals, no acute changes. Chest x- ray was negative except for mild cardiomegaly. Her blood pressure was found to be 172/92, the patient was given 1 sublingual nitroglycerin and her pain resolved. Her initial troponin was 0.112 and increase to 0.177. She is currently chest pain-free. Patient admits to having a previous catheterization in 2003 which was reportedly normal per the patient. She denies having any stents. On further history she denies any change in her exercise capacity, exertional angina, shortness of breath or dyspnea on exertion. She reports she is compliant with her medications.. [] Past Medical History Allergies/Adverse Reactions: Allergies amantadine Allergy (Verified 02/04/18 12:13) Rash cephalexin Allergy (Verified 02/04/18 12:13) Rash erythromycin base Allergy (Verified 02/04/18 12:13) Rash hydrochlorothiazide Allergy (Verified 02/04/18 12:13) Rash IVP DYE Allergy (Uncoded 02/04/18 12:13) Rash Home Medications: Ambulatory Orders Medication Instructions Recorded Alendronate Sodium [Fosamax] 70 mg PO Q7D@0700 12/06/16 Aspirin [Aspirin, Baby] 81 mg PO DAILY@0800 12/06/16 Atenolol [Tenormin (beta alejandra)] 25 mg PO DAILY 12/06/16 Atorvastatin Calcium [Lipitor] 20 mg PO QODAY 12/06/16 Brimonidine Tartrate [Alphagan P] 1 drp RIGHT EYE DAILY 12/06/16 Calcium Carbonate/Vitamin D3 1 ea PO DAILY 12/06/16 [Calcium 600-Vit D3 800 Tablet] Cholecalciferol (Vitamin D3) 2,000 unit PO DAILY 12/06/16 [Vitamin D3] Clobetasol Propionate 15 gm TP DAILY 12/06/16 Latanoprost 0.005% [Xalatan 1 drp EACHEYE QHS 12/06/16 Opthalmic] Losartan Potassium [Cozaar] 100 mg PO DAILY 12/06/16 Multivit-Min/FA/Lycopen/Lutein 1 ea PO DAILY 12/06/16 [Centrum Silver Tablet] Timolol 0.5% [Timoptic] 1 drp RIGHT EYE BID 12/06/16 Terazosin HCl [Hytrin] 20 mg PO QHS 10/06/17 Furosemide [Lasix] 20 mg PO DAILY 10/13/17 Potassium Chloride 10 meq PO QODAY 10/13/17 Past Medical History (Chronic Problems): Chronic Problems (Last Updated 10/08/17 @ 08:24 by Kayla Storm) HLD (hyperlipidemia) (Chronic) HTN (hypertension) (Chronic) Surgical History: herniorrhaphy Psychiatric History: No pertinent psych hx 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 Denies: Shortness of Breath, Orthopnea, PND, Peripheral Edema, Palpitations, Lightheadedness, Dizziness, Near Syncope, Syncope Respiratory: Denies: Cough, Sputum Production, Hemoptysis Gastrointestinal: Denies: Hematemesis, Hematochezia, Melena Genitourinary: Denies: Dysuria, Hematuria Skin: Denies: Rash Subjectve: Patient laying in bed, no acute distress. Objective: Vital Signs Temp Pulse Resp BP Pulse Ox 97.4 F L 66 18 176/53 H 98 08/09/18 14:30 02/04/18 15:29 02/04/18 14:30 02/04/18 14:30 02/04/18 14:30 Oxygen Delivery Method Room Air Weight: 149 lb 4.047 oz Body Mass Index (BMI) 26.9 General: Awake, Alert, Oriented x 3 HEENT: PERRL, EOMI, Sclera Non Icteric Neck: Supple, Good ROM, No Lymph Node Enlargement Lungs: Clear to auscultation Cardiovascular: Regular Rhythm, Normal S1, Normal S2, No Murmurs, No Rubs, No Gallops 02/04/18 16:04: Troponin I 0.177 H Rhythm: EKG: As above ECHO: Pending Stress Test: Cardiac Cath: Pending PCI: CT Surgery: Holter monitor: EPS: PPM: CXR: Chest CT Scan: Assessment/Plan 1. Unstable angina: The patient has had a second episode of unstable angina which woke her up from a sound sleep, relieved with nitroglycerin, and abnormal troponins. Patient had a stress test in March 2017 which was negative for inducible ischemia. At this point I recommend the patient undergo a left her catheterization and coronary angiography to determine if she has any significant narrowings that may require intervention. To that end I recommend Plavix 3 mg ?1 now followed by 75 mg p.o. daily in addition to baby aspirin. She will continue her beta-alejandra, losartan, and I recommended nitroglycerin paste 1/2 inch every 8 hours to control her chest pain. If her coronary arteries show no significant coronary disease, she may require evaluation from a GI standpoint for esophageal spasm, particularly if she had just taken her alendronate recently. In addition I recommend a 2D echo with Doppler to determine if she has any pericardial disease, valvular abnormalities, or LV dysfunction. 2. Hyperlipidemia: The patient has a known history of hyperlipidemia. Recommend obtaining a fasting lipid profile. Continue Lipitor. 3. Thank you very much for the opportunity to participate in the cardiac care of your patient. Consultation time took place between 410 and 4:40 PM. Code Visit Inpatient E&M: 30801 Init Hosp L2
[2018-02-04 18:06] LABS: Hemoglobin A1c 5.4 % (4.2-6.3)
[2018-02-04] MEDS: Doxazosin 4 MG Tablet 8 MG PO (20:14)
[2018-02-04] MEDS: amLODIPine 5 MG Tablet PO (20:14)
[2018-02-04] MEDS: Nitroglycerin Oint 1 INCH PACKET 0.5 INCH TRANSDERM. (20:24)
[2018-02-04 20:37] LABS: Cholesterol 153 mg/dL (200); High Density Lipoprotein 43 mg/dL; Triglycerides 103 mg/dL; Very Low Density Lipoprotein 21 mg/dL (5-40)
[2018-02-04] MEDS: Timolol 0.5% 5ML OPTH.BTL 1 DRP RIGHT EYE (21:54)
[2018-02-04] MEDS: Latanoprost 0.005% 1 Bottle 1 DRP EACH EYE (21:55)
[2018-02-04] MEDS: BRIMONIDINE 0.15% 5 ML Bottle 1 DRP RIGHT EYE (21:57)
[2018-02-05] VITALS (19 sets, daily range): BP systolic 114–184; BP diastolic 57–82; PULSE 48–64; RESP 14–18; TEMP 36.3–36.7; O2SAT 94–98
[2018-02-05 05:14] LABS: Absolute Lymphocyte Count 2.61 X10^3/ul (0.83-4.51); Absolute Neutrophil Count 2.9 X10^3/uL (2.0-7.7); Basophil# 0.03 X10^3/uL; Basophil% 0.5 % (0-1); Eosinophil# 0.23 X10^3/uL; Eosinophils% 3.8 % (0-5); Hematocrit 36.9 % (37-47); Hemoglobin 12.1 g/dl (12.0-15.0); Lymphocyte # 2.61 X10^3/ul (4.0); Lymphocyte % 42.8 % (19-41); Mean Corp Hgb Conc 32.8 g/gl (32-36); Mean Corpuscular Hgb 30.7 pg (27.0-32.0); Mean Corpuscular Volume 93.7 fL (81-99); Mean Platelet Vol. 9.8 fl (6.2-12.0); Monocyte# 0.38 X10^3/uL; Monocyte% 6.2 % (0-10); Neutrophil # 2.85 X10^3/uL (2.7-7.7); Neutrophil % 46.7 % (47-70); Platelet Count 177 K/mm3 (150-450); RBC Distribution Width SD 44.3 fl (35.1-43.9); Red Blood Count 3.94 M/mm3 (4.2-5.4); White Blood Count 6.1 K/mm3 (4.4-11.0)
[2018-02-05 05:15] LABS: POSITIVE COUNT NO; POSITIVE DIFFERENTIAL NO; POSITIVE MORPHOLOGY NO
[2018-02-05 05:30] LABS: Prothrombin Time (Protime)PT. 13.3 SECONDS (11.7-14.9)
[2018-02-05 05:31] LABS: Partial Thromboplast Time 44.5 Seconds (24.1-36.2)
[2018-02-05 05:34] LABS: Anion Gap 9 (5-15); BUN 19 mg/dL (7-18); BUN/Creat Ratio 22.7 RATIO (10-20); Calcium,Total 8.6 mg/dL (8.5-10.1); Chloride 107 mmol/L (98-107); Creatinine, Serum 0.84 mg/dL (0.55-1.02); EST Glomerular Filtration Rate 70 mL/min (>60); Est Glom Filt Rate - Afr Amer 84 mL/min (>60); Estimated Creatinine Clearance 41.54 ml/min; Glucose 96 mg/dL (74-106); Potassium 3.2 mmol/L (3.5-5.1); Sodium Level 143 mmol/L (136-145)
[2018-02-05] MEDS: Nitroglycerin Oint 1 INCH PACKET 0.5 INCH TRANSDERM. (06:23)
[2018-02-05] MEDS: 0.9% Normal Saline 1,000 ML 15 ML IV (06:23)
[2018-02-05] MEDS: Clopidogrel Bisulfate 75 MG Tablet PO (06:24)
[2018-02-05] MEDS: Aspirin 81 MG TAB.CHEW PO (06:24)
[2018-02-05] MEDS: Losartan Potassium 100 MG Tablet PO (06:25)
[2018-02-05] MEDS: Atenolol 25 MG Tablet PO (06:38)
[2018-02-05] MEDS: DiphenhydrAMINE 25 MG Capsule 50 MG PO (06:38)
[2018-02-05 06:39] LABS: Color, Urine Yellow (Yellow); Glucose, Dipstick Normal (Normal); Ketone-Dipstick 15 mg/dl (Negative); Leukocyte Esterase-Dipstick 25 /ul (Negative); Nitrite-Dipstick Negative (Negative); Occult Blood-Urine 50 /ul (Negative); Protein-Dipstick 15 mg/dl (Negative); Urine Bilirubin Dipstick Negative (Negative); Urine Clarity Clear (Clear); Urine Urobilinogen Normal (Normal)
--- NOTE | 2018-02-05 08:16 | CL.D_ITS ---
Patient Name: BERNADETTE ELIZABETH Study Date: 02/05/2018 Performing: Ernie Nolen MD Ht: 62.59 inches 159 cm : 1935 Wt: 149.91 lbs 68 kg Age: 82 Gender: female BSA: 1.7 PROCEDURE(S) PERFORMED NB20-RMA/COR/LV CLINICAL PROFILE AND INDICATIONS Indications: ACS <= 24 hrs, Worsening Angina, Suspected CAD Heart Failure: None Stress/Imaging Stress Test w/SPECT MPI: Yes Result: NegativeStress Test with SPECT MPI: Negative Angina Classification Anginal Classification w/in 2 Weeks: CCS IV CAD Presentations: Unstable angina. Comorbidities/Risk Factors: Hypertension Dyslipidemia CONCLUSIONS Normal coronary arteries Normal LV size, wall motion,and systolic function Normal Left Ventricular systolic function RECOMMENDATIONS Management as per referring Rail Director start imdur 30 mg daily. Successful Mynx closure device for severe HTN. DESCRIPTION OF PROCEDURE The patient arrived to the procedure lab. The risks and benefits of the procedure as well as a full d escription of our services here and current unavailability of surgical backup were fully explained to the patient and/or their significant other prior to the catheterization. The Timeout was completed, verifying the correct patient and procedure. The patient's procedural site was prepped and draped in the usual fashion. Local anesthetic was given subcutaneously to right groin region with Lidocaine 2%. Using a modified Seldinger technique, arterial access was obtained via the right femoral artery, a 4 Fr sheath was inserted Left Coronary Artery selective angiography was performed in multiple views us ing a 4 Fr. JL5 catheter. Right Coronary Artery selective angiography was then performed in multiple views using a 4 Fr. 3DRC catheter. Left Ventriculography was performed in CORDERO projection using a 4 Fr . Pigtail catheter. LV to AO pullback pressures were then recorded.Contrast was injected through the sheath and the Right Iliac and Femoral artery were assessed for possible closure device.The arterial sheath was pulled and a Mynx closure device was deployed for hemostasis CORONARY ANGIOGRAPHY DOMINANCE: Right Dominant LEFT HEART ASSESSMENT Left Ventricular Ejection Fraction: by LV Gram 65 % Normal LV wall motion Normal Left Ventricular systolic function Normal Left Ventricular systolic function Normal Left Ventricular systolic function LEFT MAIN: Angiographically normal LEFT ANTERIOR DECENDING ARTERY: Angiographically normal CIRCUMFLEX ARTERY: Angiographically normal RIGHT CORONARY ARTERY: Angiographically normal COMPLICATIONS No Complications PROCEDURE MEDICATIONS Versed 1 mg IV Oxygen: 2 L/min via nasal cannula Nitro 200 mcg IC 02/05/2018 07:55:29 Nitro Paste 1 in to LCQ, 0.5inch Nitro Paste removed from L deltoid applied from PCU 02/05/2018 08:08: 32 Pepcid 20 mg IV 02/05/2018 07:41:07 Solu-medrol 125 mg IV 02/05/2018 07:42:14 SUMMARY OF HEMODYNAMIC DATA Time AIR REST ECG 07:28:04 AO 202/67 (114) SA 07:48:34 LV 211/-10, 18 07:54:46 LV 210/-11, 16 07:54:52 LVp 211/-11, 16 07:54:57 AOp 210/69 (120) 07:55:02 Signed By Ernie Nolen MD On 02/05/2018 08:16:22 Ernie Nolen MD
[2018-02-05] MEDS: Timolol 0.5% 5ML OPTH.BTL 1 DRP RIGHT EYE (10:18)
[2018-02-05] MEDS: Isosorbide Mononitrate 30 MG Tablet PO (10:19)
[2018-02-05] MEDS: BRIMONIDINE 0.15% 5 ML Bottle 1 DRP RIGHT EYE (10:20)
--- NOTE | 2018-02-05 11:25 | CASEMGMT ---
RN DENA NOTE: Intro role to RN CM. Pt resting in bed, awake, alert/oriented. Daughter, Jessa, in room with pt. Demographics, PCP, and pharmacy verified. Pt reports she lives with her , is independent @ home, still drives, has no current DME, and denies needs for DME at this time. Pt wishes to return home upon discharge. Jessa states will be providing transportation for pt on discharge and will also be staying with her overnight. Pt and daughter deny having any needs or concerns at this time. CM to follow for discharge planning needs that may arise. Sandra BSN RN CM
--- NOTE | 2018-02-05 12:06 | PCM.DC ---
You will use the following diet at home:: No restrictions Your food should be the consistency of: Regular Your liquids should be the consistency of: Regular/Thin Discharge Activity: Return to Normal Activity Weight Bearing Status: Full weight bearing Allergies/Adverse Reactions: Allergies amantadine Allergy (Verified 02/04/18 12:13) Rash cephalexin Allergy (Verified 02/04/18 12:13) Rash erythromycin base Allergy (Verified 02/04/18 12:13) Rash hydrochlorothiazide Allergy (Verified 02/04/18 12:13) Rash IVP DYE Allergy (Uncoded 02/04/18 12:13) Rash Medications to take at Discharge Alendronate Sodium [Fosamax] 70 mg PO Q7D@0712/06/16 Aspirin [Aspirin, Baby] 81 mg PO DAILY@0812/06/16 Atenolol [Tenormin (beta alejandra)] 25 mg PO DAILY 12/06/16 Atorvastatin Calcium [Lipitor] 20 mg PO QODAY 12/06/16 Brimonidine Tartrate [Alphagan P] 1 drp RIGHT EYE DAILY 12/06/16 Calcium Carbonate/Vitamin D3 [Calcium 600-Vit D3 800 Tablet] 1 ea PO DAILY 12/06/16 Cholecalciferol (Vitamin D3) [Vitamin D3] 2,000 unit PO DAILY 12/06/16 Clobetasol Propionate 15 gm TP DAILY 12/06/16 Latanoprost 0.005% [Xalatan Opthalmic] 1 drp EACHEYE QHS 12/06/16 Losartan Potassium [Cozaar] 100 mg PO DAILY 12/06/16 Multivit-Min/FA/Lycopen/Lutein [Centrum Silver Tablet] 1 ea PO DAILY 12/06/16 Timolol 0.5% [Timoptic] 1 drp RIGHT EYE BID 12/06/16 Terazosin HCl [Hytrin] 20 mg PO QHS 10/06/17 Furosemide [Lasix] 20 mg PO DAILY 10/13/17 Amlodipine Besylate [Norvasc] 5 mg PO DAILY #30 tab 02/05/18 Isosorbide Mononitrate [Imdur] 30 mg PO DAILY #30 tab 02/05/18 Potassium Chloride 20 meq PO QODAY #60 tablet.er 02/05/18 The following prescriptions were given: Amlodipine Besylate [Norvasc] 5 mg PO DAILY #30 tab Isosorbide Mononitrate [Imdur] 30 mg PO DAILY #30 tab Potassium Chloride 20 meq PO QODAY #60 tablet.er Primary Care Physician: Anay Barnard MD [Primary Care Provider] - Please follow up with your Primary Care Physician in: next week Test Results: Test results from this visit will be discussed in further detail at your follow-up appointment, if applicable. Please Follow Up With: Ernie Nolen MD
[2018-02-05] MEDS: Heparin Injection (Vial) 5,000 UNIT/ML VIAL 5000 UNIT SC (13:26)
--- NOTE | 2018-02-05 15:02 | PCM.DC.SUM ---
Discharge Date and Diagnosis Date of Admission: 02/04/18 Date of Discharge: 02/05/18 - Primary Discharge Diagnosis Chest pain-musculoskeletal hyperlipidemia Hypertension - Secondary Discharge Diagnosis Chronic Problems (Last Updated 10/08/17 @ 08:24 by Kayla Storm) HLD (hyperlipidemia) (Chronic) HTN (hypertension) (Chronic) Hospital Course and Treatment Imaging Results: Heart cath: CONCLUSIONS Normal coronary arteries Normal LV size, wall motion,and systolic function Normal Left Ventricular systolic function Consults: Callum - Cardiology Operations: None Procedures: Cardiac catheterization Summary of Care Provided: Physical exam on day of discharge: General: Resting comfortably NAD Psych: A/Ox3 normal affect HEENT: [place]ARR[place] AT NC Neck: Supple NT CV: RRR no m/t/r/g/h Resp: CTA Abd: [id number] Soft NT no guarding or rigidity Ext: DP2+= no edema Skin: W/D normal turgor Lymph/Heme: No active bleeding or adenopathy Neuro: CN2-12 intact Hospital course: The patient is a 82 year old F with a history of hyperlipidemia, hypertension, former smoker who presented to the emergency room with chest pain that woke her up about 630 on the day of admission. It is described as a pressure radiating across her back and associated with nausea and sweating. She had a significant family history and her mother father and siblings with coronary artery disease. She had a cardiac catheter which was cleaned back in [address] Frey. She also had a stress test less than a year ago for chest pain of a similar sensation which was negative and she was discharged home at that time. With her recent negative stress tests and indeterminate troponin it was decided that cardiology would be consulted. Workup in the ER included negative EKG, negative chest x-ray, however troponin was indeterminate. She was admitted and placed in the PCU on telemetry. She was taken for heart catheterization the following morning. Her catheterization was negative for any underlying coronary disease. She had no further chest pain. She felt that her chest pain was musculoskeletal in etiology. She did have poorly controlled hypertension while she was here and was started on Norvasc. LDL was 89, she is discharged home in stable condition was advised to follow with her PCP in 1-2 weeks as well as with Dr. Nolen as directed. This patient was seen by Samm Sidhu PA-C under the supervision of Doctor Romero. [] Discharge Diet: Low fat/ Low Cholesterol, 2000 mg Sodium Diet Discharge Activity: Return to Normal Activity Weight Bearing Status: Full weight bearing Home Medications: Medications to take at Discharge Alendronate Sodium [Fosamax] 70 mg PO Q7D@0700 12/06/16 Aspirin [Aspirin, Baby] 81 mg PO DAILY@0800 12/06/16 Atenolol [Tenormin (beta alejandra)] 25 mg PO DAILY 12/06/16 Atorvastatin Calcium [Lipitor] 20 mg PO QODAY 12/06/16 Brimonidine Tartrate [Alphagan P] 1 drp RIGHT EYE DAILY 12/06/16 Calcium Carbonate/Vitamin D3 [Calcium 600-Vit D3 800 Tablet] 1 ea PO DAILY 12/06/16 Cholecalciferol (Vitamin D3) [Vitamin D3] 2,000 unit PO DAILY 12/06/16 Clobetasol Propionate 15 gm TP DAILY 12/06/16 Latanoprost 0.005% [Xalatan Opthalmic] 1 drp EACHEYE QHS 12/06/16 Losartan Potassium [Cozaar] 100 mg PO DAILY 12/06/16 Multivit-Min/FA/Lycopen/Lutein [Centrum Silver Tablet] 1 ea PO DAILY 12/06/16 Timolol 0.5% [Timoptic] 1 drp RIGHT EYE BID 12/06/16 Terazosin HCl [Hytrin] 20 mg PO QHS 10/06/17 Furosemide [Lasix] 20 mg PO DAILY 10/13/17 Amlodipine Besylate [Norvasc] 5 mg PO DAILY #30 tab 02/05/18 Isosorbide Mononitrate [Imdur] 30 mg PO DAILY #30 tab 02/05/18 Potassium Chloride 20 meq PO QODAY #60 tablet.er 02/05/18 Following Prescrptions Were Given to Patient: Amlodipine Besylate [Norvasc] 5 mg PO DAILY #30 tab Isosorbide Mononitrate [Imdur] 30 mg PO DAILY #30 tab Potassium Chloride 20 meq PO QODAY #60 tablet.er Primary Care Physician: Anay Barnard MD [Primary Care Provider] - Please follow up with your Primary Care Physician in: next week Please Follow Up With: Ernie Nolen MD When: as directed Disposition: Home Minutes spent on discharge:: 35 Patient Condition:: Stable Medical Necessity - Tobacco Use Smoking Status: Former smoker Tobacco Use: Non-smoker Meaningful Use Info Meaningful Use Diagnoses (Choose all that apply): None applicable
== END 2018-02-05 12:07 | disposition home or self-care (01) ==
LOC: ED 12:55 → PCU 13:47
PROVIDERS: Internal Medicine Cardiovascular Disease; Physician Assistant; Admitting Provider Internal Medicine; Emergency Provider Emergency Medicine; Family Provider Internal Medicine; PCP Internal Medicine; Visit Provider Internal Medicine
DX: R07.89 Other chest pain (principal); E78.5 Hyperlipidemia, unspecified; I10 Essential (primary) hypertension; R06.09 Other forms of dyspnea; R06.02 Shortness of breath; Z79.899 Other long term (current) drug therapy; Z79.82 Long term (current) use of aspirin; Z87.891 Personal history of nicotine dependence; Z82.49 Family history of ischemic heart disease and other diseases of the circulatory system; R73.9 Hyperglycemia, unspecified
CPT/HCPCS: 36415; 71045; 80048; 80061; 81002; 83036; 84484; 85025; 85610; 85730; 93005; 93306; 93458; 96372; 99152; 99218; 99283; C1760; J7030; Q9967; A4216; C1769; C1894; G0378; J3490

== ENCOUNTER → 2019-05-16 11:30 | Outpatient (CLI) | payer MEDICARE, SELFPAY ==
[2019-05-12 11:22] VITALS: BMI 26.9
[2019-05-16 12:39] LABS: AST(SGOT) 22 U/L (15-37); Alanine Aminotransfer ALT/SGPT 25 U/L (13-56); Alkaline Phosphatase 73 U/L (45-117); Bilirubin, Direct 0.19 mg/dL (0.00-0.30); Cholesterol 198 mg/dL (200); Globulin 4.1 g/dL (2.2-4.2); High Density Lipoprotein 53 mg/dL; Protein, Total 8.1 g/dL (6.4-8.2); Triglycerides 139 mg/dL; Very Low Density Lipoprotein 28 mg/dL (5-40)
== END ==
PROVIDERS: Family Provider Internal Medicine; PCP Internal Medicine; Referring Provider Internal Medicine Cardiovascular Disease; Visit Provider Internal Medicine Cardiovascular Disease
DX: E78.5 Hyperlipidemia, unspecified (principal)
CPT/HCPCS: 36415; 80061; 80076

== ENCOUNTER 2020-07-27 09:06 | Outpatient (RCR) | payer MEDICARE, SELFPAY ==
[2020-03-07 13:35] VITALS: BMI 27.6
== END 2020-07-27 23:59 ==
LOC: IMMUN 09:06
PROVIDERS: PCP Internal Medicine; Visit Provider Family Medicine
DX: Z23 Encounter for immunization (principal)
CPT/HCPCS: 0011A; 0012A; 91301

== ENCOUNTER → 2020-10-22 12:53 | Outpatient (CLI) | payer MEDICARE, SELFPAY ==
[2020-10-05 13:03] VITALS: BMI 25.6
--- NOTE | 2020-10-22 12:54 | CDU_ITS ---
Reason For Study: SYNCOPE Rt. Velocities/BP Lt. Velocities/BP Prox CCA 74.2/12.9 cm/sec. Prox CCA 83.3/11.6 cm/sec. Mid CCA 69.0/12.9 cm/sec. Mid CCA 69.0/16.8 cm/sec. Dist CCA 78.1/15.5 cm/sec. Dist CCA 65.1/15.5 cm/sec. Prox ICA 64.2/12.0 cm/sec. Prox ICA 72.9/18.1 cm/sec. Mid ICA 65.5/15.9 cm/sec. Mid ICA 95.0/23.3 cm/sec. Dist ICA 85.9/20.7 cm/sec. Dist ICA 123.5/24.8 cm/sec. Rt. ICA/CCA = 85.9/78.1=1.1. Lt. ICA/CCA = 123.5/83.3=1.5. Prox ECA 71.6/2.5 cm/sec. Prox ECA 71.6/7.7 cm/sec. Rt. Vert. 54.6/10.3 cm/sec. Lt. Vert. 53.4/12.7 cm/sec. Right Extracranial There is intimal thickening but no significant atherosclerotic plaque noted in the right common carotid artery. There is homogeneous, irregular atherosclerotic plaque noted in the right internal carotid artery. There is homogeneous, smooth atherosclerotic plaque noted in the right external carotid artery. Antegrade flow is noted in the right vertebral artery. Left Extracranial There is homogeneous, smooth atherosclerotic plaque noted in the left common carotid artery. There is intimal thickening but no significant atherosclerotic plaque noted in the left internal carotid artery. There is intimal thickening but no significant atherosclerotic plaque noted in the left external carotid artery. Antegrade flow is noted in the left vertebral artery. Procedure Carotid Duplex 33731. Exam performed in department. VL/Carotid Duplex Ultrasound Interpretation Summary Mild (<50%) stenosis right extracranial internal carotid. Mild (<50%) stenosis left extracranial internal carotid. Flow within the vertebral arteries is antegrade bilaterally. Ordering Physician: Faustina Hernandez Referring Physician: Anay Barnard Performed By: Denise Ron RDCS, MARK
== END ==
PROVIDERS: PCP Internal Medicine; Referring Provider Physician Assistant Medical; Visit Provider Physician Assistant Medical
DX: R55 Syncope and collapse (principal)
CPT/HCPCS: 93225; 93226; 93880

== ENCOUNTER → 2022-02-13 | Outpatient (CLI) | payer MEDICARE, SELFPAY ==
[2022-02-13 13:16] LABS: Absolute Lymphocyte Count 1.72 X10^3/uL (0.83-4.51); Absolute Neutrophil Count 3.7 X10^3/uL (2.0-7.7); Basophil# 0.04 X10^3/uL; Basophil% 0.6 % (0-1); Eosinophil# 0.32 X10^3/uL; Eosinophils% 5.2 % (0-5); Hematocrit 31.7 % (37-47); Hemoglobin 10.6 g/dL (12.0-15.0); Lymphocyte # 1.72 X10^3/ul (0.83-4.51); Lymphocyte % 27.7 % (19-41); Mean Corp Hgb Conc 33.4 g/dL (32-36); Mean Corpuscular Hgb 32.6 pg (27.0-32.0); Mean Corpuscular Volume 97.5 fL (81-99); Monocyte% 6.4 % (0-10); NRBC Flagged by Analyzer 0 % (0-5); Neutrophil # 3.71 X10^3/uL (2.7-7.7); Neutrophil % 59.8 % (47-70); Platelet Count 210 K/mm3 (150-450); RBC Distribution Width CV 12.9 % (11.6-14.6); RBC Distribution Width SD 45.6 fl (35.1-43.9); RET-HE 34.6 pg (30-35); Red Blood Count 3.25 M/mm3 (4.2-5.4); Reticulocyte Count 1.34 % (0.5-1.5); White Blood Count 6.2 K/mm3 (4.4-11.0)
[2022-02-13 13:39] LABS: Iron 80 ug/dL (50-170); Iron Binding Capacity,Total 233 ug/dL (250-450)
[2022-02-13 13:40] LABS: Ferritin 142 ng/mL (8-252); PERCENT IRON SATURATION 34.3 % (15.0-55.0)
== END | disposition home or self-care (01) ==
LOC: LAB 12:38
PROVIDERS: PCP Internal Medicine; Visit Provider Nurse Practitioner Adult Health
DX: I10 Essential (primary) hypertension (principal); D64.9 Anemia, unspecified; R19.5 Other fecal abnormalities
CPT/HCPCS: 36415; 82728; 83540; 83550; 85025; 85045

== ENCOUNTER 2022-02-21 15:30 | Inpatient (IN) | payer MEDICARE, SELFPAY ==
[2022-02-21] VITALS (9 sets, daily range): BP systolic 113–153; BP diastolic 74–126; PULSE 71–128; RESP 16–20; TEMP 36–36.6; O2SAT 98–100; BMI 23.0; BMI 23.2
--- NOTE | 2022-02-21 16:12 | EKG12_ITS ---
Test Reason : CP Blood Pressure : / mmHG Vent. Rate : 115 BPM Atrial Rate : 000 BPM P-R Int : 000 ms QRS Dur : 086 ms QT Int : 322 ms P-R-T Axes : 000 020 156 degrees QTc Int : 445 ms Atrial fibrillation with rapid ventricular response Nonspecific ST abnormality Abnormal QRS-T angle, consider primary T wave abnormality Abnormal ECG Confirmed by ELIZA FERNANDEZ, GLADYS ([id number]), mapping editor LUH ASHLEY ([id number]) on 02/24/2022 9:41:08 AM Referred By: JUNIOR Confirmed By:ANIYA KAY MD
[2022-02-21 17:04] LABS: Absolute Neutrophil Count 5.2 X10^3/uL (2.0-7.7); Basophil# 0.04 X10^3/uL; Basophil% 0.5 % (0-1); Eosinophil# 0.24 X10^3/uL; Eosinophils% 3.1 % (0-5); Hemoglobin 11.5 g/dL (12.0-15.0); Lymphocyte % 22.1 % (19-41); Mean Corp Hgb Conc 32.9 g/dL (32-36); Mean Corpuscular Hgb 31.3 pg (27.0-32.0); Mean Corpuscular Volume 95.4 fL (81-99); Mean Platelet Vol. 10.2 fl (6.2-12.0); Monocyte% 6.5 % (0-10); NRBC Flagged by Analyzer 0 % (0-5); Neutrophil % 67.7 % (47-70); Platelet Count 221 K/mm3 (150-450); RBC Distribution Width CV 12.6 % (11.6-14.6); RBC Distribution Width SD 43.9 fl (35.1-43.9); Red Blood Count 3.67 M/mm3 (4.2-5.4); White Blood Count 7.7 K/mm3 (4.4-11.0)
--- NOTE | 2022-02-21 17:20 | RAD_ITS ---
STUDY: X-RAY CHEST REASON FOR EXAM: Female, 86 years old. chest pain TECHNIQUE: PA and lateral COMPARISON: 02/04/2018 FINDINGS: Minimal discoid atelectasis or linear scarring at the lung bases.. There is no demonstrated pleural abnormality. Normal size heart. Normal mediastinum and myke. Normal visualized pulmonary arteries. Mildly calcified aortic arch and descending thoracic aorta. Normal visualized thoracic spine. Normal visualized ribs, clavicles, and shoulders. There is no demonstrated abnormality of the visualized soft tissue structures of the upper abdomen. RAD/Chest PA and Lateral IMPRESSION: Minimal bibasilar discoid atelectasis or linear scarring. Electronically Signed: Gary Whaley MD at 17:33 EDT ,
[2022-02-21 17:22] LABS: Anion Gap 7 (5-15); BUN 29 mg/dL (7-18); BUN/Creat Ratio 17.5 RATIO (10-20); Calcium,Total 9.4 mg/dL (8.5-10.1); Chloride 108 mmol/L (98-107); Creatinine, Serum 1.66 mg/dL (0.55-1.02); EST Glomerular Filtration Rate 31 mL/min (>60); Est Glom Filt Rate - Afr Amer 38 mL/min (>60); Glucose 110 mg/dL (74-106); Potassium 3.6 mmol/L (3.5-5.1); Sodium Level 138 mmol/L (136-145); Troponin-I HS (w/2H Reflex) 153 pg/mL (3.0-54.0)
--- NOTE | 2022-02-21 17:30 | HP.PCM.HOS_ITS ---
HPI - General General Date of Admission: 02/21/22 Date of Service: 02/21/22 Chief Complaint: chest pain HPI Narrative BERNADETTE ELIZABETH, is a 86 F with a PMH as outlined who presents via the ED on 02/21/2022 with a complaint of chest pain. Chest pain started one day ago, and was pressure like, with no aggravating or relieving factors. She denied any lightheadedness, palpitations, dizziness, fever or chills. Chest pressure recurred again today, so she went to see her PCP and was asked to come in to the ED. she denies having such chest pain in the past. She denied any palpitations, dizziness, nausea vomiting or diarrhea. Review of systems otherwise negative. Vitals were BP of 124/112, CT of 110; patient was in afib. She was saturating at 99% on room air. . CBC showed Hb of 11.5, wbc of 7.7 and platelets of 221. Chemistry showed sodium of 138 with Cr of 1.66 and potassium of 3.6. Initial troponin was 153. CXR showed no acute cardiopulmonary process and EKG afib with RVR. She is being admitted to be managed for nonstemi as well as new onset A. fib with RVR. [facility] Medical History Acquired keratoderma Anemia Essential hypertension Glaucoma Hemorrhage of anus and rectum Hernia HLD (hyperlipidemia) HTN (hypertension) Near syncope Osteoporosis Palpitations Positive occult stool blood test Sweating Syncope Umbilical hernia Home Medications atorvastatin 20 mg tablet 20 mg PO QODAY Cholesterol 12/06/16 [History Last Taken 02/19/22] brimonidine 0.1 % eye drops 1 drp RIGHT EYE DAILY EYE DROPS 12/06/16 [History Last Taken 02/20/22] cholecalciferol (vitamin D3) 50 mcg (2,000 unit) capsule 2,000 unit PO DAILY Supplement 12/06/16 [History Last Taken 02/03/18 14:00] clobetasol 0.05 % topical ointment 15 gm TP DAILY vaginal cream 12/06/16 [History Last Taken 02/02/18 23:00] latanoprost 0.005 % eye drops 1 drp EACHEYE QHS eye drops 12/06/16 [History Last Taken 02/20/22] losartan 100 mg tablet 100 mg PO DAILY Blood pressure/heart 12/06/16 [History Last Taken 02/21/22] timolol maleate 0.5 % eye drops 1 drp RIGHT EYE BID eye drops 12/06/16 [History Last Taken 02/20/22] amlodipine 2.5 mg tablet 2.5 mg PO DAILY bp 07/29/18 [History Last Taken 02/21/22] omeprazole 20 mg capsule,delayed release 20 mg PO DAILY gerd 07/29/18 [History Last Taken 02/21/22] potassium chloride 10 mEq tablet,extended release 10 meq PO .COMPLEX supplement 05/12/19 [History Last Taken 02/20/22] alendronate 70 mg tablet 70 mg PO Q7D@0700 Bones 09/12/19 [History Last Taken 02/16/22] furosemide 20 mg tablet 20 mg PO Q OTHER DAY water pill 03/07/20 [History Last Taken 02/16/22] levothyroxine 25 mcg capsule 25 mcg PO DAILY thyroid 10/05/20 [History Last Taken 02/21/22] ascorbic acid (vitamin C) 1,000 mg tablet 1 g PO DAILY supplement 11/21/20 [History Last Taken Unknown] carvedilol 12.5 mg tablet 12.5 mg PO BID bp 11/21/20 [History Last Taken 02/21/22] Allergy/AdvReac Type Severity Reaction Status Date / Time amantadine Allergy Rash Verified 02/13/22 11:25 cephalexin Allergy Rash Verified 02/13/22 11:25 erythromycin base Allergy Rash Verified 02/13/22 11:25 hydrochlorothiazide Allergy Rash Verified 02/13/22 11:25 IVP DYE Allergy Rash Uncoded 02/13/22 11:25 Family History Mother CAD (coronary artery disease) Father CAD (coronary artery disease) Brother CAD (coronary artery disease) Sister CAD (coronary artery disease) Surgical History H/O hernia repair History of hysteroscopy History of left heart catheterization (02/05/18) s/p left wrist ORIF Tubal ligation status Social History (Updated 02/21/22 @ 17:[address] Woo Tucker MD) household members: none Smoking Status: Former smoker quit date: 06/29/76 substance use type: does not use ROS Review of Systems ROS Unobtainable: Denies due to encephalopathy Constitutional Constitutional: Denies anorexia, chills, fatigue, fever(s), malaise or weakness Eyes Eyes: Denies change in vision ENT HEENT: Reports nasal discharge; Denies dysphagia or headache(s) Cardiovascular Cardiovascular: Reports chest pain; Denies dyspnea on exertion, edema, lightheadedness, orthopnea, palpitations, paroxysmal nocturnal dyspnea, rapid heart rate or syncope Respiratory/Chest Respiratory/Chest: Denies cough, dyspnea, productive cough, shortness of breath at rest or shortness of breath with exertion Gastrointestinal Gastrointestinal: Denies abdominal pain, constipation, diarrhea, nausea or vomiting Genitourinary Genitourinary: Reports burning urination; Denies difficulty urinating Musculoskeletal Musculoskeletal: Denies back pain or joint pain Neurologic Neurologic: Denies confusion, dizziness, focal weakness, headache(s), numbness, seizure-like activity, seizures or syncope Psychiatric Psychiatric: Denies anxiety or depression Endocrine Endocrinology: Denies change in body appearance Hematologic/Lymphatic Hematologic/Lymphatic: Denies anemia Vital Signs Vital Signs Vital Signs: 02/21/22 15:31 02/21/22 15:34 02/21/22 16:36 Temperature 96.8 F L 96.8 F L Temperature Source Temporal Temporal Pulse Rate 91 91 Respiratory Rate 18 18 Respiratory Effort Blood Pressure 113/74 113/74 Blood Pressure Mean 87 87 Pulse Ox 100 100 100 Oxygen Delivery Method Room Air Room Air Room Air 02/21/22 16:37 02/21/22 16:56 Temperature Temperature Source Pulse Rate 110 H Respiratory Rate Respiratory Effort Normal Blood Pressure 124/112 H Blood Pressure Mean 116 Pulse Ox Oxygen Delivery Method Weight Weight: 126 lb Body Mass Index (BMI) 23.0 Physical Exam Const alert, oriented x3 and no apparent distress General Appearance: cooperative HEENT normocephalic, head/scalp atraumatic, hearing grossly normal bilaterally and moist oral mucous membranes Mouth: oral and palatal mucosa normal Eyes PERRL, EOMs intact bilaterally and conjunctivae normal Neck no lymphadenopathy and supple Resp normal respiratory effort, no retractions, no use of accessory muscles and clear to auscultation bilaterally Cardio S1 normal heart sound, S2 normal heart sound and no murmurs Cardio Narrative: afib wtih RVR GI normal to inspection, nondistended, normoactive bowel sounds, soft to palpation, non-tender and non-distended Extremity normal to inspection, full ROM and no clubbing, cyanosis or edema Neuro oriented x3, CN's II-XII intact bilaterally, moves all extremities and no focal motor deficits Sensorium / Orientation: awake and alert Motor Exam: strength 5/5 throughout Psych affect normal Results Lab / Micro Data Result Diagrams: 02/21/22 16:50 02/21/22 16:50 Labs: Laboratory Results - last 24 hr 02/21/22 16:50: WBC 7.7, RBC 3.67 L, Hgb 11.5 L, Hct 35.0 L, MCV 95.4, MCH 31.3, MCHC 32.9, RDW Std Deviation 43.9, RDW Coeff of Broderick 12.6, Plt Count 221, MPV 10.2, Immature Gran % (Auto) 0.100, Neut % (Auto) 67.7, Lymph % (Auto) 22.1, [place] % (Auto) 6.5, Eos % (Auto) 3.1, Baso % (Auto) 0.5, Absolute Neuts (auto) 5.2, Absolute Lymphs (auto) 1.70, Nucleated RBC % 0 02/21/22 16:50: Sodium 138, Potassium 3.6, Chloride 108 H, Carbon Dioxide 23.0, Anion Gap 7, BUN 29 H, Creatinine 1.66 H, Estim Creat Clear Calc 19.60, Est GFR (MDRD) Af Amer 38 L, Est GFR (MDRD) Non-Af 31 L, BUN/Creatinine Ratio 17.5, Glucose 110 H, Calcium 9.4, Troponin I High Sens 153 H* Assessment & Plan Assessment/Plan (1) Chest pain: PLAN: Plan #Nonstemi * admit to PCU * start on aspirin and high intensity statin * cycle troponins * consult cardiology * order 2D echo; continue carvedilol * hold off on blood thinners for now in light of positive occult blood in stool; did receive a dose of therapeutic lovenox in the ED * #Afib with RVR * This is new onset. Has no history of A. fib. * Heart rate was up in the 110s and 120s at time I reviewed her. Patient on carvedilol at home. * Patient placed on therapeutic Lovenox;will hold off on anticoagulation as patient states she has had a recent history of positive occult blood in her stool. Hemoglobin is 11.5 but she says she was taken off aspirin and has been referred to a senior research consultant for upper and lower scopes * 2D echo ordered as above * CHADVASC score is 4. will need anticoagulation once EGD and colonoscopy is done * #Recent positive FOBT * Patient says she was recently noted to be anemic. Her hemoglobin is currently 11.5 with the lowest it has been in the EMR being 10.6 from 02/13/2022 * Stool for occult blood ordered by her PCP was positive. She says she was taken off her aspirin and has been referred to gastroenterology for evaluation . * Will consult gastroenterology as with a new onset A. fib, patient will need anticoagulation and so she would need an upper and lower scope before she can be put on long-term anticoagulation in light of the positive FOBT. * #HYpothyroidism: on synthroid #Hypertension; on amlodipine, carvedilol and losartan. DVT prophylaxis: SCDs for now until she has EGD and colonoscopy Code status: full code for now * Patient, her daughter and her brother were counseled about differences between full code, DNR CCA and DNR CCA. Patient says she is undecided and wants to discuss further with her children but is okay with being placed as full code for now until she changes her mind or otherwise. * CODE STATUS is full code * Total [id number] time 17 minutes Charges/Coding Visit Charges Inpatient E&M: 33218 Init Hosp L3 Procedures Hospitalists Procedures: 84965 Advncd Care Plan 30 Min
--- NOTE | 2022-02-21 17:33 | ED.VIS.CHEST ---
HPI History of Present Illness Chief Complaint: Chest Pain Detail of Chief Complaint: Chest discomfort that started yesterday morning and lasted hours Informant: patient and family Onset/Context/Timing Onset: Today and Yesterday Activity at onset: sudden Timing: Intermittent (Duration 14 hours yesterday and 15 minutes today) Quality: Positive for Aching Location: Substernal Current Severity: Gone Maximum Severity: Moderate Worsened By: Exertion Relieved By: Nothing Associated Symptoms: Positive for Diaphoresis (Diaphoresis while she was on the commode. She had no chest discomfort.); Negative for Nausea, Vomiting, Dyspnea, Cough, Fever, Lightheadedness, Acid Reflux or Palpitations Narrative Narrative: Patient is a an 86-year-old woman with history of hyperlipidemia, essential hypertension and former smoker who presents with chest pain that started yesterday at 083. She states she did not feel well. She took her blood pressure. Blood pressure was low. She had discomfort in her chest that lasted till 10 PM. She had no associated symptoms radiation. She had episode today that lasted 15 minutes. She also an episode of diaphoresis while on the commode. She had no respiratory or chest discomfort when she became diaphoretic. She states she did not strain to have a bowel movement. She did not feel lightheaded. She denies black or maroon-colored stool. Aspirin was discontinued because she had a occult blood in her stool. There is no history of VTE. Prior Similar Symptoms: No CVD Risk Factors: Positive for Hypertension and Hypercholesterolemia; Negative for Diabetes, Family History 1' </=55 or Smoking PE Risk Factors: Negative for Recent Travel/Surgery, Recent Immobilization, Prior DVT or PE, Cancer or OCP + Smoking + >/=35 TAD Risk Factors: Positive for Hypertension; Negative for Marfan's Syndrome or Family History [facility] Medical History Acquired keratoderma Anemia Essential hypertension Glaucoma Hemorrhage of anus and rectum Hernia HLD (hyperlipidemia) HTN (hypertension) Near syncope Osteoporosis Palpitations Positive occult stool blood test Sweating Syncope Umbilical hernia Home Medications atorvastatin 20 mg tablet 20 mg PO QODAY Cholesterol 12/06/16 [History Last Taken 02/19/22] brimonidine 0.1 % eye drops 1 drp RIGHT EYE DAILY EYE DROPS 12/06/16 [History Last Taken 02/20/22] cholecalciferol (vitamin D3) 50 mcg (2,000 unit) capsule 2,000 unit PO DAILY Supplement 12/06/16 [History Last Taken 02/03/18 14:00] clobetasol 0.05 % topical ointment 15 gm TP DAILY vaginal cream 12/06/16 [History Last Taken 02/02/18 23:00] latanoprost 0.005 % eye drops 1 drp EACHEYE QHS eye drops 12/06/16 [History Last Taken 02/20/22] losartan 100 mg tablet 100 mg PO DAILY Blood pressure/heart 12/06/16 [History Last Taken 02/21/22] timolol maleate 0.5 % eye drops 1 drp RIGHT EYE BID eye drops 12/06/16 [History Last Taken 02/20/22] amlodipine 2.5 mg tablet 2.5 mg PO DAILY bp 07/29/18 [History Last Taken 02/21/22] omeprazole 20 mg capsule,delayed release 20 mg PO DAILY gerd 07/29/18 [History Last Taken 02/21/22] potassium chloride 10 mEq tablet,extended release 10 meq PO .COMPLEX supplement 05/12/19 [History Last Taken 02/20/22] alendronate 70 mg tablet 70 mg PO Q7D@0700 Bones 09/12/19 [History Last Taken 02/16/22] furosemide 20 mg tablet 20 mg PO Q OTHER DAY water pill 03/07/20 [History Last Taken 02/16/22] levothyroxine 25 mcg capsule 25 mcg PO DAILY thyroid 10/05/20 [History Last Taken 02/21/22] ascorbic acid (vitamin C) 1,000 mg tablet 1 g PO DAILY supplement 11/21/20 [History Last Taken Unknown] carvedilol 12.5 mg tablet 12.5 mg PO BID bp 11/21/20 [History Last Taken 02/21/22] Allergy/AdvReac Type Severity Reaction Status Date / Time amantadine Allergy Rash Verified 02/13/22 11:25 cephalexin Allergy Rash Verified 02/13/22 11:25 erythromycin base Allergy Rash Verified 02/13/22 11:25 hydrochlorothiazide Allergy Rash Verified 02/13/22 11:25 IVP DYE Allergy Rash Uncoded 02/13/22 11:25 Family History Mother CAD (coronary artery disease) Father CAD (coronary artery disease) Brother CAD (coronary artery disease) Sister CAD (coronary artery disease) Surgical History H/O hernia repair History of hysteroscopy History of left heart catheterization (02/05/18) s/p left wrist ORIF Tubal ligation status Social History (Updated 02/21/22 @ 17:[address] Woo Tucker MD) household members: none Smoking Status: Former smoker quit date: 06/29/76 substance use type: does not use ROS ROS ED Constitutional Constitutional ED: Denies chills, fever(s), subjective, sweats or weight loss Eyes Eyes: Reports none ENT ENT ED: Denies ear pain, rhinorrhea or sore throat Cardiovascular Cardiovascular: Reports as per HPI; Denies orthopnea or paroxysmal nocturnal dyspnea Respiratory/Chest Respiratory/Chest: Denies cough, dyspnea, dyspnea on exertion, orthopnea or paroxysmal nocturnal dyspnea Gastrointestinal Gastrointestinal: Denies abdominal pain, constipation, diarrhea, melena, nausea or vomiting Genitourinary Genitourinary ED: Denies dysuria or hematuria Musculoskeletal Musculoskeletal: Denies arthralgias, back pain, myalgias or neck pain Integumentary Denies abscess or rash Neurologic Neurologic: Denies headache(s), paresthesias or weakness Psychiatric Psychiatric: Denies anxiety or depression Endocrine Endocrinology: Denies cold intolerance or heat intolerance Hematologic/Lymphatic Hematologic/Lymphatic: Denies easy bleeding or easy bruising EXAM Physical Exam Const Vital Signs: 02/21/22 15:31 02/21/22 15:34 02/21/22 16:36 Temperature 96.8 F L 96.8 F L Temperature Source Temporal Temporal Pulse Rate 91 91 Respiratory Rate 18 18 Respiratory Effort Blood Pressure 113/74 113/74 Blood Pressure Mean 87 87 Pulse Ox 100 100 100 Oxygen Delivery Method Room Air Room Air Room Air 02/21/22 16:37 02/21/22 16:56 02/21/22 17:00 Temperature Temperature Source Pulse Rate 110 H 126 H Respiratory Rate 20 H Respiratory Effort Normal Blood Pressure 124/112 H 120/90 H Blood Pressure Mean 116 100 Pulse Ox Oxygen Delivery Method Positive well nourished and well developed General Appearance ED: well developed and NAD; Negative for pallor HEENT Reports moist mucous membranes HEENT Narrative: Head is atraumatic normocephalic. Ears normal. Nares patent. Uvula midline. No deviation tongue with protrusion. No erythema or exudate the posterior pharynx. Eyes PERRL and EOMs intact bilaterally General Eye ED: Negative for pale conjunctiva or scleral icterus Neck no lymphadenopathy, supple and no JVD Chest Wall inspection of chest normal Resp normal respiratory effort and clear to auscultation bilaterally Cardio regular rate, regular rhythm, S1 normal heart sound, S2 normal heart sound and no murmurs GI normal to inspection, nondistended, normoactive bowel sounds, soft to palpation, non-tender, non-distended and no masses; Negative for hepatosplenomegaly Back/Spine no CVA tenderness Extremity normal to inspection General Extremety ED: Negative for edema, pulses abnormal or tenderness General Extremity: Negative for edema or pulses abnormal Neuro oriented x3, CN's II-XII intact bilaterally and no sensory deficits noted Sensorium / Orientation: awake and alert Motor Exam: strength 5/5 throughout Psych mental status grossly normal Skin no rashes or lesions noted and no wounds General Skin Exam: Negative for jaundice or pallor Heart Score History: Moderately Suspicious ECG: Nonspecific Repolarization Age: >/= 65 years Risk Factors: >/= 3 Risk Factors or History of CAD Troponin: >/=3 x Normal Limit Score: 8 MDM MDM MDM Narrative Medical decision making narrative: Presents with story concerning for myocardial infarction. EKG was obtained, troponin, blood work. Patient was treated with aspirin since she did not have black or maroon stool but occult blood when tested. Will discuss with chemical detection expert regarding anticoagulation with Lovenox or heparin. As of 182 Dr. Arroyo he has not returned pages. At this time we will not anticoagulate. Lab Data Labs: Laboratory Results - last 24 hr 02/21/22 02/21/22 16:50 16:50 WBC 7.7 RBC 3.67 L Hgb 11.5 L Hct 35.0 L MCV 95.4 MCH 31.3 MCHC 32.9 RDW Std Deviation 43.9 RDW Coeff of Broderick 12.6 Plt Count 221 MPV 10.2 Immature Gran % (Auto) 0.100 Neut % (Auto) 67.7 Lymph % (Auto) 22.1 [place] % (Auto) 6.5 Eos % (Auto) 3.1 Baso % (Auto) 0.5 Absolute Neuts (auto) 5.2 Absolute Lymphs (auto) 1.70 Nucleated RBC % 0 Sodium 138 Potassium 3.6 Chloride 108 H Carbon Dioxide 23.0 Anion Gap 7 BUN 29 H Creatinine 1.66 H Estim Creat Clear Calc 19.60 Est GFR (MDRD) Af Amer 38 L Est GFR (MDRD) Non-Af 31 L BUN/Creatinine Ratio 17.5 Glucose 110 H Calcium 9.4 Troponin I High Sens 153 H* Radiography Chest X-Ray - ED: 2 View, Read by ED Physician (View chest x-ray there is no acute process. Cardiac silhouette size normal. Perihilar region normal. Osseous trucks unremarkable. Lung parenchyma is unremarkable.), Normal, Heart, Lungs and Mediastinum Diagnostic Testing: Clinical Impression(s) from Imaging Studies Chest X-Ray 02/21/22 17:20 IMPRESSION: Minimal bibasilar discoid atelectasis or linear scarring. Electronically Signed: Gary Whaley MD at 17:33 EDT , EKG Initial EKG: Attestation: I personally reviewed and interpreted this EKG as follows: Interpretation: Atrial Fibrillation (Ventricular rate 115. QS duration 86 ms. QT duration 3 and 22 ms. Lambert is normal. There is nonspecific ST-T wave changes. There is no evidence of acute ST elevation [place]. Since patient is tachycardic we will treat with beta-alejandra.) Critical Care Time Critical Care Time: Yes Critical care time (excluding procedures): 30-74 minutes (33 minutes), Including time spent: (History, physical, documentation, interpretation laboratory results including chest x-ray and EKG, treatment with aspirin after reviewing prior records and metoprolol for rate control of new onset A. fib), Discussing w/Patient &/or Family/Developmental Specialist, Discussing w/Consultants and Arranging Admission or Transfer Discharge Plan Dx/Rx/DC Orders Clinical Impression: Non-ST elevated myocardial infarction, Essential hypertension, HLD (hyperlipidemia), Atrial fibrillation, new onset Disposition Disposition: Acute Care Hospital [facility]
[2022-02-21] MEDS: Aspirin 81 MG TAB.CHEW 324 MG PO (17:41)
[2022-02-21] MEDS: Metoprolol Tartrate 5 MG/5 ML Vial IV (18:35)
[2022-02-21 18:59] LABS: Reflex Troponin-HS? (from REC) Y
--- NOTE | 2022-02-21 19:33 | EKG12_ITS ---
Test Reason : NSTEMI ADMIT Blood Pressure : / mmHG Vent. Rate : 086 BPM Atrial Rate : 000 BPM P-R Int : 000 ms QRS Dur : 084 ms QT Int : 376 ms P-R-T Axes : 000 021 100 degrees QTc Int : 449 ms Atrial fibrillation Nonspecific ST and T wave abnormality Abnormal ECG Confirmed by RAINA FERNANDEZ, JAMES ([id number]), editor dictionary [facility] ([id number]) on 02/25/2022 8:01:05 AM Referred By: Confirmed By:JAMES PARIS MD
--- NOTE | 2022-02-21 19:41 | EKG12_ITS ---
Test Reason : NSTEMI Blood Pressure : / mmHG Vent. Rate : 107 BPM Atrial Rate : 000 BPM P-R Int : 000 ms QRS Dur : 088 ms QT Int : 294 ms P-R-T Axes : 000 005 080 degrees QTc Int : 392 ms Atrial fibrillation with rapid ventricular response Nonspecific ST abnormality Abnormal ECG Confirmed by RAINA FRENANDEZ, JAMES ([id number]), international editorial producer [facility] A[facility] ([id number]) on 02/25/2022 8:04:01 AM Referred By: ANTHONY Confirmed By:JAMES PARIS MD
[2022-02-21 20:01] LABS: Troponin-I HS 149 pg/mL (3.0-54.0)
[2022-02-21] MEDS: Latanoprost 0.005% 1 Bottle 1 DRP EACH EYE (21:18)
[2022-02-21] MEDS: Timolol 0.5% 5ML OPTH.BTL 1 DRP RIGHT EYE (21:19)
[2022-02-21] MEDS: Atorvastatin Calcium 40 MG Tablet PO (21:23)
[2022-02-21] MEDS: Carvedilol 12.5 MG Tablet PO (21:23)
[2022-02-21] MEDS: Electrolyte Solution/Peg's 4000 ML PO (21:24)
[2022-02-21] MEDS: Bisacodyl 5 MG Tablet 20 MG PO (21:30)
--- NOTE | 2022-02-21 23:00 | CON.PCM_ITS ---
Assessment & Plan Assessment/Plan (1) Anemia: PLAN: The differential diagnosis for her anemia would be peptic ulcer disease because of use of aspirin therapy, AVM, neoplasia. She should undergo an upper and lower endoscopy for evaluation of her upper lower GI tract to look for any signs of bleeding. Patient will likely need a catheterization to look for signs of coronary artery disease as a cause of her new onset atrial fibrillation. She was explained alternatives, risk, benefits including not any bleeding, infection, sepsis, perforation, need for emergency to . Have an ASA of 3. HPI Consult Data Date of Consult: 02/21/22 HPI Narrative Reason for Consultation: Anemia and new onset afib HPI Narrative: BERNADETTE ELIZABETH, is a 86 F who presents with chest pain from home. She has a past medical historyof hyperlipidemia, essential hypertension and former smoker who presents with chest pain that started yesterday at 083.? She states she did not feel well.? She took her blood pressure.? Blood pressure was low.? She was discovered to be in atrial fibrillation with RVR. She had discomfort in her chest that lasted till 10 PM.? She had no associated symptoms radiation.? She had episode today that lasted 15 minutes.? She also an episode of diaphoresis while on the commode.? She had no respiratory or chest discomfort when she became diaphoretic.? She states she did not strain to have a bowel movement.? She did not feel lightheaded.? She denies black or maroon- colored stool.? Aspirin was discontinued because she had a occult blood in her stool.? There is no history of VTE. [facility] Medical History Acquired keratoderma Anemia Essential hypertension Glaucoma Hemorrhage of anus and rectum Hernia HLD (hyperlipidemia) HTN (hypertension) Near syncope Osteoporosis Palpitations Positive occult stool blood test Sweating Syncope Umbilical hernia Home Medications atorvastatin 20 mg tablet 20 mg PO QODAY Cholesterol 12/06/16 [History Last Taken 02/19/22] brimonidine 0.1 % eye drops 1 drp RIGHT EYE DAILY EYE DROPS 12/06/16 [History Last Taken 02/20/22] cholecalciferol (vitamin D3) 50 mcg (2,000 unit) capsule 2,000 unit PO DAILY Supplement 12/06/16 [History Last Taken 02/03/18 14:00] clobetasol 0.05 % topical ointment 15 gm TP DAILY vaginal cream 12/06/16 [History Last Taken 02/02/18 23:00] latanoprost 0.005 % eye drops 1 drp EACHEYE QHS eye drops 12/06/16 [History Last Taken 02/20/22] losartan 100 mg tablet 100 mg PO DAILY Blood pressure/heart 12/06/16 [History Last Taken 02/21/22] timolol maleate 0.5 % eye drops 1 drp RIGHT EYE BID eye drops 12/06/16 [History Last Taken 02/20/22] amlodipine 2.5 mg tablet 2.5 mg PO DAILY bp 07/29/18 [History Last Taken 02/21/22] omeprazole 20 mg capsule,delayed release 20 mg PO DAILY gerd 07/29/18 [History Last Taken 02/21/22] potassium chloride 10 mEq tablet,extended release 10 meq PO .COMPLEX supplement 05/12/19 [History Last Taken 02/20/22] alendronate 70 mg tablet 70 mg PO Q7D@0700 Bones 09/12/19 [History Last Taken 02/16/22] furosemide 20 mg tablet 20 mg PO Q OTHER DAY water pill 03/07/20 [History Last Taken 02/16/22] levothyroxine 25 mcg capsule 25 mcg PO DAILY thyroid 10/05/20 [History Last Taken 02/21/22] ascorbic acid (vitamin C) 1,000 mg tablet 1 g PO DAILY supplement 11/21/20 [History Last Taken Unknown] carvedilol 12.5 mg tablet 12.5 mg PO BID bp 11/21/20 [History Last Taken 02/21/22] Allergy/AdvReac Type Severity Reaction Status Date / Time amantadine Allergy Rash Verified 02/13/22 11:25 cephalexin Allergy Rash Verified 02/13/22 11:25 erythromycin base Allergy Rash Verified 02/13/22 11:25 hydrochlorothiazide Allergy Rash Verified 02/13/22 11:25 IVP DYE Allergy Rash Uncoded 02/13/22 11:25 Family History Mother CAD (coronary artery disease) Father CAD (coronary artery disease) Brother CAD (coronary artery disease) Sister CAD (coronary artery disease) Surgical History H/O hernia repair History of hysteroscopy History of left heart catheterization (02/05/18) s/p left wrist ORIF Tubal ligation status Social History (Updated 02/21/22 @ 17:[address] Woo Tucker MD) household members: none Smoking Status: Former smoker quit date: 06/29/76 substance use type: does not use ROS Review of Systems ROS Unobtainable: Denies due to encephalopathy Constitutional Constitutional: Denies anorexia, chills, fatigue, fever(s), malaise or weakness Eyes Eyes: Denies change in vision ENT HEENT: Reports nasal discharge; Denies dysphagia or headache(s) Cardiovascular Cardiovascular: Reports chest pain; Denies dyspnea on exertion, edema, lightheadedness, orthopnea, palpitations, paroxysmal nocturnal dyspnea, rapid heart rate or syncope Respiratory/Chest Respiratory/Chest: Denies cough, dyspnea, productive cough, shortness of breath at rest or shortness of breath with exertion Gastrointestinal Gastrointestinal: Denies abdominal pain, constipation, diarrhea, nausea or vomiting Genitourinary Genitourinary: Reports burning urination; Denies difficulty urinating Musculoskeletal Musculoskeletal: Denies back pain or joint pain Neurologic Neurologic: Denies confusion, dizziness, focal weakness, headache(s), numbness, seizure-like activity, seizures or syncope Psychiatric Psychiatric: Denies anxiety or depression Endocrine Endocrinology: Denies change in body appearance Hematologic/Lymphatic Hematologic/Lymphatic: Denies anemia Physical Exam Const alert, oriented x3 and no apparent distress General Appearance: cooperative HEENT normocephalic, head/scalp atraumatic, hearing grossly normal bilaterally and moist oral mucous membranes Mouth: oral and palatal mucosa normal Eyes PERRL, EOMs intact bilaterally and conjunctivae normal Neck no lymphadenopathy and supple Resp normal respiratory effort, no retractions, no use of accessory muscles and clear to auscultation bilaterally Cardio S1 normal heart sound, S2 normal heart sound and no murmurs Cardio Narrative: afib wtih RVR GI normal to inspection, nondistended, normoactive bowel sounds, soft to palpation, non-tender and non-distended Extremity normal to inspection, full ROM and no clubbing, cyanosis or edema Neuro oriented x3, CN's II-XII intact bilaterally, moves all extremities and no focal motor deficits Sensorium / Orientation: awake and alert Motor Exam: strength 5/5 throughout Psych affect normal Lab / Micro Data Result Diagrams: 02/22/22 06:07 02/22/22 06:07 Labs: Laboratory Results - last 24 hr 02/21/22 16:50: WBC 7.7, RBC 3.67 L, Hgb 11.5 L, Hct 35.0 L, MCV 95.4, MCH 31.3, MCHC 32.9, RDW Std Deviation 43.9, RDW Coeff of Broderick 12.6, Plt Count 221, MPV 10.2, Immature Gran % (Auto) 0.100, Neut % (Auto) 67.7, Lymph % (Auto) 22.1, [place] % (Auto) 6.5, Eos % (Auto) 3.1, Baso % (Auto) 0.5, Absolute Neuts (auto) 5.2, Absolute Lymphs (auto) 1.70, Nucleated RBC % 0 02/21/22 16:50: Sodium 138, Potassium 3.6, Chloride 108 H, Carbon Dioxide 23.0, Anion Gap 7, BUN 29 H, Creatinine 1.66 H, Estim Creat Clear Calc 19.60, Est GFR (MDRD) Af Amer 38 L, Est GFR (MDRD) Non-Af 31 L, BUN/Creatinine Ratio 17.5, Glucose 110 H, Calcium 9.4, Troponin I High Sens 153 H* 02/21/22 19:20: Troponin I High Sens 149 H* 02/21/22 22:40: Troponin I High Sens 138 H* 02/22/22 06:07: WBC 7.5, RBC 3.59 L, Hgb 11.5 L, Hct 34.1 L, MCV 95.0, MCH 32.0, MCHC 33.7, RDW Std Deviation 43.8, RDW Coeff of Broderick 12.5, Plt Count 243, MPV 1 0.3, Immature Gran % (Auto) 0.300, Neut % (Auto) 61.1, Lymph % (Auto) 28.1, [place] % (Auto) 6.9, Eos % (Auto) 3.1, Baso % (Auto) 0.5, Absolute Neuts (auto) 4.6, Absolute Lymphs (auto) 2.12, Nucleated RBC % 0 02/22/22 06:07: Sodium 135 L, Potassium 3.2 L, Chloride 104, Carbon Dioxide 20.0 L, Anion Gap 11, BUN 32 H, Creatinine 1.76 H, Estim Creat Clear Calc 18.48, Est GFR (MDRD) Af Amer 35 L, Est GFR (MDRD) Non-Af 29 L, BUN/Creatinine Ratio 18.2, Glucose 101, Calcium 9.0, Triglycerides 120, Cholesterol 159, LDL Cholesterol 87, VLDL Cholesterol 24, HDL Cholesterol 48 Radiology Impression Chest X-Ray 02/21/22 17:20 IMPRESSION: Minimal bibasilar discoid atelectasis or linear scarring. Electronically Signed: Gary Whaley MD at 17:33 EDT , Charges/Coding Visit Charges Inpatient E&M: 34521 Init Hosp L2
[2022-02-21 23:11] LABS: Troponin-I HS 138 pg/mL (3.0-54.0)
[2022-02-22] VITALS (12 sets, daily range): BP systolic 100–136; BP diastolic 52–87; PULSE 62–98; RESP 16–18; TEMP 36.1–36.9; O2SAT 97–100; BMI 22.8
--- NOTE | 2022-02-22 05:55 | ECHOD_ITS ---
Reason For Study: CHF Procedure This was a 2D Doppler, Color Flow transthoracic echocardiogram. Exam performed portable in patient room. Left Ventricle Normal LV size. The estimated ejection fraction is 70 %. No evidence for diastolic dysfunction. No regional wall motion abnormalities noted. Right Ventricle Normal RV size. Normal systolic function. Atria The left atrium is mildly enlarged. Normal right atrium. No doppler evidence for ASD. Mitral Valve There is no mitral valve stenosis. No mitral valve insufficiency. Tricuspid Valve There is no tricuspid stenosis. Mild tricuspid valve insufficiency. Pulmonary artery systolic pressure is 60 mmHg. Aortic Valve Trisinus/trileaflet aortic valve. There is no aortic stenosis. No aortic valve insufficiency. Pulmonic Valve There is no pulmonic valvular stenosis. Trivial pulmonic valve insufficiency. Great Vessels Normal aortic root. Pericardium/Pleural Trivial pericardial effusion. MMode/2D Measurements & Calculations LVIDd: 3.4 cm IVSd: 0.85 cm Ao root diam: 2.9 cm LVIDs: 2.2 cm LVPWd: 0.83 cm LA dimension: 3.6 cm RVDd: 3.0 cm FS: 35.7 % LAV(MOD-bp): 44.2 ml LA A4 area: 16.6 cm2 RA A4 area: 11.4 cm2 LAV(MOD-bp) Indexed: 28.3 ml/m2 LAV(MOD-sp2): 41.2 ml LAV(MOD-sp4): 47.8 ml Doppler Measurements & Calculations MV E max goldy: 107.1 cm/sec Ao V2 max: 89.9 cm/sec LV V1 max: 70.3 cm/sec Ao max P.2 mmHg LV V1 max P.0 mmHg MR max goldy: 481.6 cm/sec PA V2 max: 85.2 cm/sec PI end-d goldy: 157.0 cm/sec MR max P.8 mmHg TR max goldy: 330.8 cm/sec TR max P.0 mmHg ECHO/Echo Complete Interpretation Summary The estimated ejection fraction is 70 %. No evidence for diastolic dysfunction. The left atrium is mildly enlarged. Mild tricuspid valve insufficiency. Trivial pericardial effusion. Ordering Physician: Sarah Nash Referring Physician: Anay Barnard Performed By: Jose Sánchez RCS
[2022-02-22 07:20] LABS: Absolute Lymphocyte Count 2.12 X10^3/uL (0.83-4.51); Absolute Neutrophil Count 4.6 X10^3/uL (2.0-7.7); Basophil# 0.04 X10^3/uL; Basophil% 0.5 % (0-1); Eosinophil# 0.23 X10^3/uL; Eosinophils% 3.1 % (0-5); Hematocrit 34.1 % (37-47); Hemoglobin 11.5 g/dL (12.0-15.0); Lymphocyte # 2.12 X10^3/ul (0.83-4.51); Lymphocyte % 28.1 % (19-41); Mean Corp Hgb Conc 33.7 g/dL (32-36); Mean Platelet Vol. 10.3 fl (6.2-12.0); Monocyte# 0.52 X10^3/uL; Monocyte% 6.9 % (0-10); NRBC Flagged by Analyzer 0 % (0-5); Neutrophil # 4.61 X10^3/uL (2.7-7.7); Neutrophil % 61.1 % (47-70); Platelet Count 243 K/mm3 (150-450); RBC Distribution Width CV 12.5 % (11.6-14.6); RBC Distribution Width SD 43.8 fl (35.1-43.9); Red Blood Count 3.59 M/mm3 (4.2-5.4); White Blood Count 7.5 K/mm3 (4.4-11.0)
[2022-02-22 07:47] LABS: Anion Gap 11 (5-15); BUN 32 mg/dL (7-18); BUN/Creat Ratio 18.2 RATIO (10-20); Chloride 104 mmol/L (98-107); Cholesterol 159 mg/dL (200); Creatinine, Serum 1.76 mg/dL (0.55-1.02); EST Glomerular Filtration Rate 29 mL/min (>60); Est Glom Filt Rate - Afr Amer 35 mL/min (>60); Estimated Creatinine Clearance 18.48 ml/min; Glucose 101 mg/dL (74-106); High Density Lipoprotein 48 mg/dL; Potassium 3.2 mmol/L (3.5-5.1); Sodium Level 135 mmol/L (136-145); Triglycerides 120 mg/dL; Very Low Density Lipoprotein 24 mg/dL (5-40)
--- NOTE | 2022-02-22 08:05 | IMM_PTH ---
PATIENT: BERNADETTE ELIZABETH LOC: [facility] U#:[id number] AGE/SX: 86/F ROOM: [facility] RE02/21/[address]: Dr. Sarah Nash MD : [id number] BED: 1 DIS: 02/23/2022 SPEC #: [id number] RECD: 02/24/22 09:26 STATUS: ALAINA REPat #: [id number] ARGELIA: 02/22/22 08:[address]: Yuriy Collins DEPT: IMMUNOHISTOCHEMISTRY RECD BY: Denisse Rahman ENTERED: 02/24/22 09:27 SP TYPE: IMMUNO OTHR DR: MD Dr. Sarah Harrison MD Dr. Nagapradee Nagajothi, MD Tissues: A - Stomach, NOS Procedures: H Pylori (initial) PHYSICIAN & INSTITUTION [place] [id number] SPECIMEN INFORMATION: Tissue Source: A ? Gastric antrum Clinical Info: [place] Specimen Number: [id number] CPT code: 54907 METHODOLOGY: Deparaffinized sections of prefer/formalin-fixed tissue or PAP/DQ stained slides are incubated with monoclonal/polyclonal antibodies/oligonucleotide probes. Localization is made via biotin free immunoperoxidase method. Appropriate controls are performed and reacted as expected. Results on target cell population are indicated in the following table: RESULTS: ANTIBODY / CLONE RESULT Block A H Pylori (polyclonal) negative These tests were developed and their performance characteristics determined by [facility]. They may not have been cleared or approved by the U.[place]. Food and Drug Administration. The FDA has determined that such clearance or approval is not necessary. The above immunohistochemical/dualISH markers are ordered and reviewed by the Pathologist. INTERPRETATION: A. Gastric antrum, biopsy: Negative for Helicobacter pylori organisms. SJ:ray 02/25/2022
--- NOTE | 2022-02-22 08:05 | EGD_PTH ---
PATIENT: BERNADETTE ELIZABETH LOC: [facility] U#:[id number] AGE/SX: 86/F ROOM: [facility] RE02/21/[address]: Dr. Sarah Nash MD : 1935 BED: 1 DIS: 02/23/2022 SPEC #: [id number] RECD: 02/22/22 10:12 STATUS: ALAINA GONZALEZ #: [id number] ARGELIA: 02/22/22 08:[address]: Yuriy Collins DEPT: SURGICAL PATHOLOGY RECD BY: Callie Frias ENTERED: 02/24/22 08:11 SP TYPE: EGD BIOPSY OTHR DR: MD Dr. Sarah Harrison MD Dr. Nagapradee Nagajothi, MD Tissues: A - Gastric mucous membrane B - Ascending colon Procedures: Surgery Specimen Level IV Comments: @ Ordering doctor for SUIV edited from to @ by [email or web address] at 02/24/22926 @ Submitting doctor edited from to @ by RGOOD at 02/24/22926 HEADER OPERATION: Colonoscopy, EGD ([facility] [place] PRE-OP DIAGNOSIS: Anemia TISSUE SUBMITTED: A ? Gastric antrum for H. pylori and path, B ? Ascending colon polyp MICROSCOPIC DIAGNOSIS A. Gastric antrum, biopsy: Mild gastritis. See microscopic description and comment. B. Ascending colon polyp, biopsy: Fragments of tubular adenoma. SJ:ray 02/25/2022 COMMENT A. The results of immunohistochemistry for Helicobacter pylori will be reported separately ([id number]). MICROSCOPIC DESCRIPTION Slides are reviewed. A. The specimen shows fragments of gastric mucosa with chronic inflammatory cell infiltrates in the lamina propria consisting of lymphocytes and plasma cells, consistent with mild chronic gastritis. GROSS DESCRIPTION A - Received in fixative is one container labeled with the patient's name and designated gastric antrum. The specimen consists of two irregular fragments of light rao soft tissue that in aggregate measure 0.8 x 0.3 x 0.1 cm. The specimen is totally submitted in one cassette. B - Received in fixative is one container labeled with the patient's name and designated ascending colon polyp. The specimen consists of multiple irregular fragments of light rao soft tissue that in aggregate measure 1 x 0.3 x 0.1 cm. The specimen is totally submitted in one cassette. / SJ:rg 02/24/2022 TC:1 CPT: 74040 x2
--- NOTE | 2022-02-22 08:43 | OP.CCLET_ITS ---
04/03/2022 Anay Barnard [address] [place] [address] Re : Upper GI endoscopy procedure for Isis Stoner Dear Dr. Barnard This procedure was performed on Tuesday, February 22, 2022. My impressions and recommendations are as follows: Impressions : - Normal esophagus. - Medium-sized hiatal hernia. - Gastritis. Biopsied. - Normal second portion of the duodenum. Recommendations : - Await pathology results. - Repeat upper endoscopy for surveillance. - Continue present medications. My findings are described in the full procedure note, which is enclosed. If I can be of further assistance, please feel free to contact me at . Sincerely, Yuriy Collins DO 02/22/2022 8:42:25 AM This report has been signed electronically.
--- NOTE | 2022-02-22 08:43 | OP.EGD_ITS ---
Patient Name: Isis Stoner Procedure Date: 02/22/2022 7:42 AM Date of : 1935 Age: 86 Procedure: Upper GI endoscopy Indications: Iron deficiency anemia Providers: Yuriy Collins DO Medicines: Monitored Anesthesia Care Patient Profile: This is an 86 year old female. Refer to note in patient chart for documentation of history and physical. Patient has symptoms. Complications: No immediate complications. Procedure: Pre-Anesthesia Assessment: - Prior to the procedure, a History and Physical was performed, and patient medications and allergies were reviewed. The risks and benefits of the procedure and the sedation options and risks were discussed with the patient. All questions were answered and informed consent was obtained. Patient identification and proposed procedure were verified by the physician in the pre-procedure area. Mental Status Examination: alert and oriented. Airway Examination: normal oropharyngeal airway and neck mobility. Respiratory Examination: clear to auscultation. CV Examination: normal. Prophylactic Antibiotics: The patient does not require prophylactic antibiotics. Prior Anticoagulants: The patient has taken no previous anticoagulant or antiplatelet agents. After reviewing the risks and benefits, the patient was deemed in satisfactory condition to undergo the procedure. The anesthesia plan was to use moderate sedation / analgesia (conscious sedation). Immediately prior to administration of medications, the patient was re-assessed for adequacy to receive sedatives. The heart rate, respiratory rate, oxygen saturations, blood pressure, adequacy of pulmonary ventilation, and response to care were monitored throughout the procedure. The physical status of the patient was re-assessed after the procedure. After obtaining informed consent, the endoscope was passed under direct vision. Throughout the procedure, the patient's blood pressure, pulse, and oxygen saturations were monitored continuously. The colonoscope was introduced through the mouth, and advanced to the second part of duodenum. The upper GI endoscopy was accomplished without difficulty. The patient tolerated the procedure well. Scope In: 8:16:01 AM Scope Out: 8:19:09 AM Total Procedure Duration Time 0 hours 3 minutes 8 seconds Findings: The examined esophagus was normal. A medium-sized hiatal hernia was present. Patchy mild inflammation characterized by erythema was found in the gastric antrum. Biopsies were taken with a cold forceps for histology. Verification of patient identification for the specimen was done. The area was cauterized. Estimated blood loss was minimal. The second portion of the duodenum was normal. Impression: - Normal esophagus. - Medium-sized hiatal hernia. - Gastritis. Biopsied. - Normal second portion of the duodenum. Recommendation: - Await pathology results. - Repeat upper endoscopy for surveillance. - Continue present medications. Procedure Code(s): --- Professional --- 93288, Esophagogastroduodenoscopy, flexible, transoral; with biopsy, single or multiple CPT copyright 2017 [employer] [place] [employer]. All rights reserved. The codes documented in this report are preliminary and upon emergency room specialist review may be revised to meet current compliance requirements. Yuriy Collins DO 02/22/2022 8:42:25 AM This report has been signed electronically. Number of Addenda: 1 Note Initiated On: 02/22/2022 7:42 AM Addendum Number: 1 Addendum Date: 04/03/2022 6:04:00 AM MAC was used as sedation for this procedure. Yuriy Collins DO 04/03/2022 6:04:04 AM This report has been signed electronically.
--- NOTE | 2022-02-22 08:48 | OP.COLON_ITS ---
Patient Name: Isis Stoner Procedure Date: 02/22/2022 8:19 AM Date of : 1935 Age: 86 Procedure: Colonoscopy Indications: Iron deficiency anemia Providers: Yuriy Collins DO Medicines: Monitored Anesthesia Care Patient Profile: This is an 86 year old female. Refer to note in patient chart for documentation of history and physical. Patient has symptoms. Last Colonoscopy: date unknown. Unable to locate last colonoscopy report. Complications: No immediate complications. Procedure: Pre-Anesthesia Assessment: - Prior to the procedure, a History and Physical was performed, and patient medications and allergies were reviewed. The risks and benefits of the procedure and the sedation options and risks were discussed with the patient. All questions were answered and informed consent was obtained. Patient identification and proposed procedure were verified by the physician in the pre-procedure area. Mental Status Examination: alert and oriented. Airway Examination: normal oropharyngeal airway and neck mobility. Respiratory Examination: clear to auscultation. CV Examination: normal. Prophylactic Antibiotics: The patient does not require prophylactic antibiotics. Prior Anticoagulants: The patient has taken no previous anticoagulant or antiplatelet agents. After reviewing the risks and benefits, the patient was deemed in satisfactory condition to undergo the procedure. The anesthesia plan was to use moderate sedation / analgesia (conscious sedation). Immediately prior to administration of medications, the patient was re-assessed for adequacy to receive sedatives. The heart rate, respiratory rate, oxygen saturations, blood pressure, adequacy of pulmonary ventilation, and response to care were monitored throughout the procedure. The physical status of the patient was re-assessed after the procedure. After I obtained informed consent, the scope was passed under direct vision. Throughout the procedure, the patient's blood pressure, pulse, and oxygen saturations were monitored continuously. The colonoscope was introduced through the anus and advanced to the cecum, identified by appendiceal orifice and ileocecal valve. The colonoscopy was performed without difficulty. The patient tolerated the procedure well. The quality of the bowel preparation was good. Scope In: 8:22:46 AM Scope Withdrawal Time 0 hours 9 minutes 44 seconds Scope Out: 8:35:46 AM Total Procedure Duration Time 0 hours 13 minutes 0 seconds Findings: The perianal and digital rectal examinations were normal. A 5 mm polyp was found in the ascending colon. The polyp was sessile. The polyp was removed with a hot snare. Resection and retrieval were complete. Verification of patient identification for the specimen was done. Estimated blood loss was minimal. A few small and large-mouthed diverticula were found in the recto-sigmoid colon and sigmoid colon. A single medium-sized patchy angiodysplastic lesion with bleeding was found in the cecum. Coagulation for hemostasis using monopolar probe was successful. Estimated blood loss was minimal. Non-bleeding internal hemorrhoids were found during retroflexion. The hemorrhoids were Grade I (internal hemorrhoids that do not prolapse). Impression: - One 5 mm polyp in the ascending colon, removed with a hot snare. Resected and retrieved. - Diverticulosis in the recto-sigmoid colon and in the sigmoid colon. - A single bleeding colonic angiodysplastic lesion. Treated with a monopolar probe. - Non-bleeding internal hemorrhoids. Recommendation: - Repeat colonoscopy in 5 years for surveillance. - Continue present medications. Procedure Code(s): --- Professional --- 35581, 59, Colonoscopy, flexible; with control of bleeding, any method 58078, Colonoscopy, flexible; with removal of tumor(s), polyp(s), or other lesion(s) by snare technique CPT copyright 2017 [employer]. All rights reserved. The codes documented in this report are preliminary and upon drapery sewer hand review may be revised to meet current compliance requirements. Yuriy Collins DO 02/22/2022 8:48:02 AM This report has been signed electronically. Number of Addenda: 1 Note Initiated On: 02/22/2022 8:19 AM Addendum Number: 1 Addendum Date: 04/03/2022 6:04:11 AM MAC was used as sedation for this procedure. Yuriy Collins DO 04/03/2022 6:04:15 AM This report has been signed electronically.
--- NOTE | 2022-02-22 08:49 | OP.CCLET_ITS ---
04/03/2022 Anay Barnard [address] [place] [place] [id number] Re : Colonoscopy procedure for Isis Stoner Dear Dr. Barnard This procedure was performed on Tuesday, February 22, 2022. My impressions and recommendations are as follows: Impressions : - One 5 mm polyp in the ascending colon, removed with a hot snare. Resected and retrieved. - Diverticulosis in the recto-sigmoid colon and in the sigmoid colon. - A single bleeding colonic angiodysplastic lesion. Treated with a monopolar probe. - Non-bleeding internal hemorrhoids. Recommendations : - Repeat colonoscopy in 5 years for surveillance. - Continue present medications. My findings are described in the full procedure note, which is enclosed. If I can be of further assistance, please feel free to contact me at . Sincerely, Yuriy Collins, 02/22/2022 8:48:02 AM This report has been signed electronically.
[2022-02-22] MEDS: Timolol 0.5% 5ML OPTH.BTL 1 DRP RIGHT EYE ×2 (09:40→21:26)
[2022-02-22] MEDS: amLODIPine 2.5 MG Tablet PO (09:41)
[2022-02-22] MEDS: Furosemide 20 MG Tablet PO (09:41)
[2022-02-22] MEDS: Losartan Potassium 100 MG Tablet PO (09:41)
[2022-02-22] MEDS: BRIMONIDINE 0.15% 5 ML Bottle 1 DRP RIGHT EYE (09:41)
[2022-02-22] MEDS: Carvedilol 12.5 MG Tablet PO ×2 (09:41→21:26)
[2022-02-22] MEDS: Pantoprazole Sodium 20 MG Tablet PO (09:41)
[2022-02-22] MEDS: Potassium Chloride Oral Tablet 10 MEQ PO (09:41)
[2022-02-22] MEDS: Aspirin 81 MG TAB.CHEW PO (09:41)
--- NOTE | 2022-02-22 12:22 | PN.HOSP_ITS ---
Subjective Subjective Patient seen and examined. She had EGD and colonoscopy this morning which showed a small AVM and polyp. She has no complaints this morning. Her brother was by her bedside. Her tachyardia has improved. She remains in afib. Review of systems is otherwise negative. Objective Data Objective Data Vital Signs: Vital Signs Temp Pulse Resp BP Pulse Ox O2 Del Method 97.3 F L 98 18 136/62 H 100 Room Air 02/22/22 09:30 02/22/22 09:30 02/22/22 09:30 02/22/22 09:30 02/22/22 09:30 02/22/22 10:22 Oxygen Delivery Method Room Air Weight: 124 lb 12.506 oz Body Mass Index (BMI) 22.8 Lab / Micro Data Result Diagrams: 02/22/22 06:07 02/22/22 06:07 Labs: Laboratory Results - last 24 hr 02/21/22 16:50: WBC 7.7, RBC 3.67 L, Hgb 11.5 L, Hct 35.0 L, MCV 95.4, MCH 31.3, MCHC 32.9, RDW Std Deviation 43.9, RDW Coeff of Broderick 12.6, Plt Count 221, MPV 10.2, Immature Gran % (Auto) 0.100, Neut % (Auto) 67.7, Lymph % (Auto) 22.1, Howell % (Auto) 6.5, Eos % (Auto) 3.1, Baso % (Auto) 0.5, Absolute Neuts (auto) 5.2, Absolute Lymphs (auto) 1.70, Nucleated RBC % 0 02/21/22 16:50: Sodium 138, Potassium 3.6, Chloride 108 H, Carbon Dioxide 23.0, Anion Gap 7, BUN 29 H, Creatinine 1.66 H, Estim Creat Clear Calc 19.60, Est GFR (MDRD) Af Amer 38 L, Est GFR (MDRD) Non-Af 31 L, BUN/Creatinine Ratio 17.5, Glucose 110 H, Calcium 9.4, Troponin I High Sens 153 H* 02/21/22 19:20: Troponin I High Sens 149 H* 02/21/22 22:40: Troponin I High Sens 138 H* 02/22/22 06:07: WBC 7.5, RBC 3.59 L, Hgb 11.5 L, Hct 34.1 L, MCV 95.0, MCH 32.0, MCHC 33.7, RDW Std Deviation 43.8, RDW Coeff of Broderick 12.5, Plt Count 243, MPV 10.3, Immature Gran % (Auto) 0.300, Neut % (Auto) 61.1, Lymph % (Auto) 28.1, Howell % (Auto) 6.9, Eos % (Auto) 3.1, Baso % (Auto) 0.5, Absolute Neuts (auto) 4.6, Absolute Lymphs (auto) 2.12, Nucleated RBC % 0 02/22/22 06:07: Sodium 135 L, Potassium 3.2 L, Chloride 104, Carbon Dioxide 20.0 L, Anion Gap 11, BUN 32 H, Creatinine 1.76 H, Estim Creat Clear Calc 18.48, Est GFR (MDRD) Af Amer 35 L, Est GFR (MDRD) Non-Af 29 L, BUN/Creatinine Ratio 18.2, Glucose 101, Calcium 9.0, Triglycerides 120, Cholesterol 159, LDL Cholesterol 87, VLDL Cholesterol 24, HDL Cholesterol 48 Radiography Diagnostic Testing: Radiology Impression Chest X-Ray 02/21/22 17:20 IMPRESSION: Minimal bibasilar discoid atelectasis or linear scarring. Electronically Signed: Gary Whaley MD at 17:33 EDT , Physical Exam Const alert, oriented x3 and no apparent distress General Appearance: cooperative HEENT normocephalic, head/scalp atraumatic, hearing grossly normal bilaterally and moist oral mucous membranes Head and Scalp: normocephalic Mouth: oral and palatal mucosa normal Eyes PERRL, EOMs intact bilaterally and conjunctivae normal Neck no lymphadenopathy and supple Resp normal respiratory effort, no retractions, no use of accessory muscles and clear to auscultation bilaterally Cardio S1 normal heart sound, S2 normal heart sound and no murmurs Cardio Narrative: afib, rate controlled GI normal to inspection, nondistended, normoactive bowel sounds, soft to palpation, non-tender and non-distended Extremity normal to inspection, full ROM and no clubbing, cyanosis or edema Neuro oriented x3, CN's II-XII intact bilaterally, moves all extremities and no focal motor deficits Sensorium / Orientation: awake and alert Motor Exam: strength 5/5 throughout Psych affect normal Assessment & Plan Assessment/Plan (1) Chest pain: PLAN: Plan #Nonstemi * troponins did trend downwards * on aspirin and high intensity statin * cardiology consulted; await rec's * 2D echo ordered * on carvedilol * #Afib with RVR * RVR has resolved * CHADVASC score is 4. * 2D echo pending * cardiology consulted * troponins elevated but trended downwards. * #Recent positive FOBT * Patient says she was recently noted to be anemic. Her hemoglobin is currently 11.5 with the lowest it has been in the EMR being 10.6 from 02/13/2022 * Hb today is 11.5 * Stool for occult blood ordered by her PCP was positive. She says she was taken off her aspirin and has been referred to gastroenterology for evaluation. * she had EGD and colonoscopy today which showed one 5mm polyp in the ascending colon, which was removed, as well as diverticulosis in the recto sigmoid and sigmoid colon as well as a single bleeding colonic angiodysplastic lesion which was treated with a heater probe. * * #GERI * CR is 1.76 today, was 1.66 yesterday. Baseline Cr is 0.84 * will hydrate gently with IVF and trend Cr. * #HYpothyroidism: on synthroid #Hypertension; on amlodipine, carvedilol and losartan. DVT prophylaxis: SCDs. Will start on therapeutic anticoagulation in light of EGD and colonoscopy findings. Code status: full code for now * Charges/Coding Visit Charges Inpatient E&M: 64536 Subs Hosp L2
[2022-02-22] MEDS: 0.9% Normal Saline 1,000 ML 100 ML IV ×2 (13:05→16:58)
--- NOTE | 2022-02-22 14:40 | CASEMGMT ---
JUMA FERNANDES assessment: Face to Face with patient for initial transition planning/care coordination assessment. JUMA FERNANDES introduced self and role at [facility], pt voices understanding and consents to assessment. Pt is sitting up in bed in no distress on room air. Pt is A/Ox4 and answers all questions appropriately. Care providers, pharmacy,?and demographics verified. ? Presentation: Pt c/o CP and fluctuation in BP, also c/o fatigue Admitting dx: NSTEMI PCP: Evon Specialists: [place], cardio; Friend, GI [facility]erred [facility]acy: [facility] Insurance: [facility] Living Will/HPOA: Pt does have LW/HPOA and is aware that they are not on file at [facility]. Pt states her daughter, Jessa Ragland, is HPOA. LNOK: Jessa Ragland, daughter/HPOA Living Arrangements: Pt lives alone in apt with 1 step in and states no concerns at home. Pt is independent with ADL's. Transportation: Pt drives self and states no transportation concerns. DME/HHC: Pt states has the following DME: cane, WW, and grab bars. Pt states no need for any further DME. Pt states no hx of HHC or SNF in past. Pt state no concerns with going home at time of discharge. Pt is retired. Pt states does not smoke cigarettes or drink ETOH. Pt states no further concerns/needs. CM to follow for anti-coag and any further questions/concerns/needs. Advised pt to ask for CM if any further questions/concerns/needs arise, voices understanding. ? Pt Goal: Home Plan[place] JUMA FERNANDES
[2022-02-22] MEDS: Enoxaparin 100 MG/ML Syringe 85 MG SC (16:58)
--- NOTE | 2022-02-22 17:10 | CON.PCM.CA_ITS ---
Assessment & Plan Assessment/Plan (1) Atrial fibrillation, new onset: PLAN: Continue beta-alejandra. Patient would benefit from anticoagulation with Eliquis if okay with the GI service. It will be reasonable to discontinue the aspirin if we are starting Eliquis. (2) Elevated troponin: PLAN: Patient had normal coronary arteries in 2018. Her troponin elevation could be related to her A. fib with RVR in the setting of anemia. Will be reasonable not to proceed with further work-up in the form of angiography or stress test at this time. If she has recurrence of her chest pain then at that time we could consider either of those depending on her clinical situation. HPI Consult Data Date of Consult: 02/22/22 HPI Narrative Reason for Consultation: Chest tightness HPI Narrative: BERNADETTE ELIZABETH, is a 86 F who presents with chest tightness. It was retrosternal in location. No specific aggravating or relieving factors. It is resolved at this time. Patient was also found to be in A. fib with RVR. This is new onset A. fib. Patient also had iron deficiency anemia and had EGD and colonoscopy. EGD revealed gastritis and colonoscopy revealed a polyp that was resected and an angiodysplastic lesion that was treated. Patient had coronary angiography in 2018 which revealed normal coronaries. Patient's troponin was mildly elevated Review of systems: All systems reviewed. All else is negative except that in [facility] Medical History Acquired keratoderma Anemia Essential hypertension Glaucoma Hemorrhage of anus and rectum Hernia HLD (hyperlipidemia) HTN (hypertension) Near syncope Osteoporosis Palpitations Positive occult stool blood test Sweating Syncope Umbilical hernia Home Medications atorvastatin 20 mg tablet 20 mg PO QODAY Cholesterol 12/06/16 [History Last Roberto en 02/19/22] brimonidine 0.1 % eye drops 1 drp RIGHT EYE DAILY EYE DROPS 12/06/16 [History Last Taken 02/20/22] cholecalciferol (vitamin D3) 50 mcg (2,000 unit) capsule 2,000 unit PO DAILY Supplement 12/06/16 [History Last Taken 02/03/18 14:00] clobetasol 0.05 % topical ointment 15 gm TP DAILY vaginal cream 12/06/16 [History Last Taken 02/02/18 23:00] latanoprost 0.005 % eye drops 1 drp EACHEYE QHS eye drops 12/06/16 [History Last Taken 02/20/22] losartan 100 mg tablet 100 mg PO DAILY Blood pressure/heart 12/06/16 [History Last Taken 02/21/22] timolol maleate 0.5 % eye drops 1 drp RIGHT EYE BID eye drops 12/06/16 [History Last Taken 02/20/22] amlodipine 2.5 mg tablet 2.5 mg PO DAILY bp 07/29/18 [History Last Taken 02/21/22] omeprazole 20 mg capsule,delayed release 20 mg PO DAILY gerd 07/29/18 [History Last Taken 02/21/22] potassium chloride 10 mEq tablet,extended release 10 meq PO .COMPLEX supplement 05/12/19 [History Last Taken 02/20/22] alendronate 70 mg tablet 70 mg PO Q7D@0700 Bones 09/12/19 [History Last Taken 02/16/22] furosemide 20 mg tablet 20 mg PO Q OTHER DAY water pill 03/07/20 [History Last Taken 02/16/22] levothyroxine 25 mcg capsule 25 mcg PO DAILY thyroid 10/05/20 [History Last Taken 02/21/22] ascorbic acid (vitamin C) 1,000 mg tablet 1 g PO DAILY supplement 11/21/20 [History Last Taken Unknown] carvedilol 12.5 mg tablet 12.5 mg PO BID bp 11/21/20 [History Last Taken 02/21/22] Allergy/AdvReac Type Severity Reaction Status Date / Time amantadine Allergy Rash Verified 02/13/22 11:25 cephalexin Allergy Rash Verified 02/13/22 11:25 erythromycin base Allergy Rash Verified 02/13/22 11:25 hydrochlorothiazide Allergy Rash Verified 02/13/22 11:25 IVP DYE Allergy Rash Uncoded 02/13/22 11:25 Family History Mother CAD (coronary artery disease) Father CAD (coronary artery disease) Brother CAD (coronary artery disease) Sister CAD (coronary artery disease) Surgical History H/O hernia repair History of hysteroscopy History of left heart catheterization (08/10/18) s/p left wrist ORIF Tubal ligation status Social History (Updated 02/21/22 @ 17:[address] Woo Tucker MD) household members: none Smoking Status: Former smoker quit date: 06/29/76 substance use type: does not use Physical Exam Const alert and oriented x3 Eyes no scleral icterus Cardio S1 normal heart sound and S2 normal heart sound Skin no rashes or lesions noted Psych mental status grossly normal Risk Stratification Risk Stratification Applicable: No Charges/Coding Visit Charges Inpatient E&M: 80400 Init Hosp L2 Objective Data Vital Signs: Vital Signs Temp Pulse Resp BP Pulse Ox O2 Del Method 97.2 F L 77 18 113/61 98 Room Air 02/22/22 15:30 02/22/22 15:30 02/22/22 15:30 02/22/22 15:30 02/22/22 15:30 02/22/22 15:30 Oxygen Delivery Method Room Air Weight: 124 lb 12.506 oz Body Mass Index (BMI) 22.8 Intake & Output: Intake and Output for Last 24 Hours 02/20/22 02/21/22 02/22/22 23:59 23:59 23:59 Intake Total 688.33 / 688.33 Balance 688.33 / 688.33 Lab / Micro Data Result Diagrams: 02/22/22 06:07 02/22/22 06:07 Labs: Laboratory Results - last 24 hr 02/21/22 16:50: Sodium 138, Potassium 3.6, Chloride 108 H, Carbon Dioxide 23.0, Anion Gap 7, BUN 29 H, Creatinine 1.66 H, Estim Creat Clear Calc 19.60, Est GFR (MDRD) Af Amer 38 L, Est GFR (MDRD) Non-Af 31 L, BUN/Creatinine Ratio 17.5, Glucose 110 H, Calcium 9.4, Troponin I High Sens 153 H* 02/21/22 19:20: Troponin I High Sens 149 H* 02/21/22 22:40: Troponin I High Sens 138 H* 02/22/22 06:07: WBC 7.5, RBC 3.59 L, Hgb 11.5 L, Hct 34.1 L, MCV 95.0, MCH 32.0, MCHC 33.7, RDW Std Deviation 43.8, RDW Coeff of Broderick 12.5, Plt Count 243, MPV 10.3, Immature Gran % (Auto) 0.300, Neut % (Auto) 61.1, Lymph % (Auto) 28.1, [place]ham % (Auto) 6.9, Eos % (Auto) 3.1, Baso % (Auto) 0.5, Absolute Neuts (auto) 4 .6, Absolute Lymphs (auto) 2.12, Nucleated RBC % 0 02/22/22 06:07: Sodium 135 L, Potassium 3.2 L, Chloride 104, Carbon Dioxide 20.0 L, Anion Gap 11, BUN 32 H, Creatinine 1.76 H, Estim Creat Clear Calc 18.48, Est GFR (MDRD) Af Amer 35 L, Est GFR (MDRD) Non-Af 29 L, BUN/Creatinine Ratio 18.2, Glucose 101, Calcium 9.0, Triglycerides 120, Cholesterol 159, LDL Cholesterol 87, VLDL Cholesterol 24, HDL Cholesterol 48 Cardiology Labs/Tests 02/21/22 16:50: Sodium 138, Potassium 3.6, Chloride 108 H, Carbon Dioxide 23.0, Anion Gap 7, BUN 29 H, Creatinine 1.66 H, Est GFR (MDRD) Af Amer 38 L, Est GFR (MDRD) Non-Af 31 L, BUN/Creatinine Ratio 17.5, Glucose 110 H, Calcium 9.4 02/22/22 06:07: WBC 7.5, RBC 3.59 L, Hgb 11.5 L, Hct 34.1 L, MCV 95.0, MCH 32.0, MCHC 33.7, Plt Count 243, MPV 10.3, Immature Gran % (Auto) 0.300, Neut % (Auto) 61.1, Lymph % (Auto) 28.1, [place]ham % (Auto) 6.9, Eos % (Auto) 3.1, Baso % (Auto) 0 .5, Absolute Neuts (auto) 4.6, Nucleated RBC % 0 02/22/22 06:07: Sodium 135 L, Potassium 3.2 L, Chloride 104, Carbon Dioxide 20.0 L, Anion Gap 11, BUN 32 H, Creatinine 1.76 H, Est GFR (MDRD) Af Amer 35 L, Est GFR (MDRD) Non-Af 29 L, BUN/Creatinine Ratio 18.2, Glucose 101, Calcium 9.0, Triglycerides 120, Cholesterol 159, LDL Cholesterol 87, VLDL Cholesterol 24, HDL Cholesterol 48 Rhythm: EKG: ECHO: Stress Test: Cardiac Cath: PCI: CT Surgery: Holter monitor: EPS: PPM: CXR: Chest CT Scan: Radiography Diagnostic Testing: Radiology Impression Chest X-Ray 02/21/22 17:20 IMPRESSION: Minimal bibasilar discoid atelectasis or linear scarring. Electronically Signed: Gary Whaley MD at 17:33 EDT , Echocardiogram 02/22/22 05:55 Interpretation Summary The estimated ejection fraction is 70 %. No evidence for diastolic dysfunction. The left atrium is mildly enlarged. Mild tricuspid valve insufficiency. Trivial pericardial effusion. Ordering Physician: Sarah Nash Referring Physician: Anay Barnard Performed By: Jose Sánchez RCS
[2022-02-22] MEDS: Menthol/Lanolin/Calamine/Znox 113 GM Tube 1 APPLIC TOPICAL (21:19)
[2022-02-22] MEDS: Atorvastatin Calcium 40 MG Tablet PO (21:26)
[2022-02-22] MEDS: Latanoprost 0.005% 1 Bottle 1 DRP EACH EYE (21:26)
[2022-02-23 03:05] VITALS: BP 119/75; PULSE 102; RESP 18; TEMP 36.5; O2SAT 98
[2022-02-23 03:16] VITALS: PULSE 88
[2022-02-23] MEDS: Menthol/Lanolin/Calamine/Znox 113 GM Tube 1 APPLIC TOPICAL (06:18)
[2022-02-23] MEDS: Levothyroxine 25 MCG TABLET PO (06:18)
[2022-02-23 06:42] LABS: Absolute Lymphocyte Count 2.28 X10^3/uL (0.83-4.51); Absolute Neutrophil Count 3.5 X10^3/uL (2.0-7.7); Basophil# 0.04 X10^3/uL; Basophil% 0.6 % (0-1); Eosinophil# 0.33 X10^3/uL; Eosinophils% 4.8 % (0-5); Hemoglobin 9.5 g/dL (12.0-15.0); Lymphocyte # 2.28 X10^3/ul (0.83-4.51); Lymphocyte % 33.4 % (19-41); Mean Corp Hgb Conc 32.8 g/dL (32-36); Mean Corpuscular Hgb 31.5 pg (27.0-32.0); Mean Platelet Vol. 10.6 fl (6.2-12.0); Monocyte# 0.63 X10^3/uL; Monocyte% 9.2 % (0-10); NRBC Flagged by Analyzer 0 % (0-5); Neutrophil # 3.54 X10^3/uL (2.7-7.7); Neutrophil % 51.9 % (47-70); Platelet Count 191 K/mm3 (150-450); RBC Distribution Width CV 12.7 % (11.6-14.6); RBC Distribution Width SD 44.8 fl (35.1-43.9); Red Blood Count 3.02 M/mm3 (4.2-5.4); White Blood Count 6.8 K/mm3 (4.4-11.0)
[2022-02-23 07:01] VITALS: PULSE 75
[2022-02-23 07:02] LABS: Anion Gap 9 (5-15); BUN 31 mg/dL (7-18); BUN/Creat Ratio 18.7 RATIO (10-20); Calcium,Total 8.1 mg/dL (8.5-10.1); Chloride 113 mmol/L (98-107); Creatinine, Serum 1.66 mg/dL (0.55-1.02); EST Glomerular Filtration Rate 31 mL/min (>60); Est Glom Filt Rate - Afr Amer 38 mL/min (>60); Glucose 87 mg/dL (74-106); Potassium 2.9 mmol/L (3.5-5.1); Sodium Level 142 mmol/L (136-145)
[2022-02-23 07:46] VITALS: O2SAT 96
[2022-02-23 09:00] VITALS: BP 97/62; PULSE 79; RESP 18; TEMP 36.3; O2SAT 98
[2022-02-23] MEDS: Timolol 0.5% 5ML OPTH.BTL 1 DRP RIGHT EYE (09:17)
[2022-02-23] MEDS: Pantoprazole Sodium 20 MG Tablet PO ×2 (09:18→09:21)
[2022-02-23] MEDS: APIXABAN 2.5 MG TABLET PO (09:18)
[2022-02-23] MEDS: Carvedilol 12.5 MG Tablet PO (09:18)
[2022-02-23] MEDS: BRIMONIDINE 0.15% 5 ML Bottle 1 DRP RIGHT EYE (09:18)
--- NOTE | 2022-02-23 11:33 | DS.PCM_ITS ---
Providers Date of Admission: 02/21/22 Date of Discharge: 02/23/22 Primary Care Physician: Dr. Anay Barnard MD Consultations 02/21/22 18:59 Consult: Cardiology Routine Consulting Provider: Neil Arroyo Reason for Consult: nstemi EMERGENT Consult: No Notified: Yes Date Notified: 02/21/22 Time Notified: 17:42 Method of Notification: Text 02/21/22 19:26 Consult: Gastroenterology Routine Consulting Provider: [facility] Reason for Consult: positive occult blood in stool EMERGENT Consult: No Notified: Yes Date Notified: 02/21/22 Time Notified: 19:27 Method of Notification: Text Reason For Visit: NONSTEMI Diagnosis Discharge Diagnosis (1) Atrial fibrillation, new onset: Status: Acute Code(s): I48.91 - Unspecified atrial fibrillation (2) Elevated troponin: Status: Acute Code(s): R77.8 - Other specified abnormalities of plasma proteins Plan #Nonstemi * troponins did trend downwards * on aspirin and high intensity statin * cardiology consulted; await rec's * 2D echo ordered * on carvedilol * #Afib with RVR * RVR has resolved * CHADVASC score is 4. * 2D echo pending * cardiology consulted * troponins elevated but trended downwards. * #Recent positive FOBT * Patient says she was recently noted to be anemic. Her hemoglobin is currently 11.5 with the lowest it has been in the EMR being 10.6 from 02/13/2022 * Hb today is 11.5 * Stool for occult blood ordered by her PCP was positive. She says she was taken off her aspirin and has been referred to gastroenterology for evaluation. * she had EGD and colonoscopy today which showed one 5mm polyp in the ascending colon, which was removed, as well as diverticulosis in the recto sigmoid and sigmoid colon as well as a single bleeding colonic angiodysplastic lesion which was treated with a heater probe. * * #GERI * CR is 1.76 today, was 1.66 yesterday. Baseline Cr is 0.84 * will hydrate gently with IVF and trend Cr. * #HYpothyroidism: on synthroid #Hypertension; on amlodipine, carvedilol and losartan. DVT prophylaxis: SCDs. Will start on therapeutic anticoagulation in light of EGD and colonoscopy findings. Code status: full code for now * Medications at Discharge Home Medications atorvastatin 20 mg tablet 20 mg PO QODAY Cholesterol 12/06/16 brimonidine 0.1 % eye drops 1 drp RIGHT EYE DAILY EYE DROPS 12/06/16 cholecalciferol (vitamin D3) 50 mcg (2,000 unit) capsule 2,000 unit PO DAILY Supplement 12/06/16 clobetasol 0.05 % topical ointment 15 gm TP DAILY vaginal cream 12/06/16 latanoprost 0.005 % eye drops 1 drp EACHEYE QHS eye drops 12/06/16 losartan 100 mg tablet 100 mg PO DAILY Blood pressure/heart 12/06/16 timolol maleate 0.5 % eye drops 1 drp RIGHT EYE BID eye drops 12/06/16 amlodipine 2.5 mg tablet 2.5 mg PO DAILY bp 07/29/18 omeprazole 20 mg capsule,delayed release 20 mg PO DAILY gerd 07/29/18 potassium chloride 10 mEq tablet,extended release 10 meq PO .COMPLEX supplement 05/12/19 alendronate 70 mg tablet 70 mg PO Q7D@0700 Bones 09/12/19 furosemide 20 mg tablet 20 mg PO Q OTHER DAY water pill 03/07/20 levothyroxine 25 mcg capsule 25 mcg PO DAILY thyroid 10/05/20 ascorbic acid (vitamin C) 1,000 mg tablet 1 g PO DAILY supplement 11/21/20 carvedilol 12.5 mg tablet 12.5 mg PO BID bp 11/21/20 apixaban 2.5 mg tablet (Eliquis) 2.5 mg PO BID #60 tabs 02/23/22 Hospital Course Operations None Procedures 2-D Echocardiogram Summary of Care Provided Minutes Spent on Discharge: 45 Hospital Course: BERNADETTE ELIZABETH, is a 86 F with a PMH as outlined who presents via the ED on 02/21/2022 with a complaint of chest pain. Chest pain started one day prior to admission, and was pressure like, with no aggravating or relieving factors. She denied any lightheadedness, palpitations, dizziness, fever or chills. Chest pressure recurred again today, so she went to see her PCP and was asked to come in to the ED. she denies having such chest pain in the past.? She denied any palpitations, dizziness, nausea vomiting or diarrhea.? Review of systems otherwise negative.? Vitals were BP of 124/112, NH of 110; patient was in afib. She was saturating at 99% on room air. . CBC showed Hb of 11.5, wbc of 7.7 and platelets of 221. Ch emistry showed sodium of 138 with Cr of 1.66 and potassium of 3.6. Initial troponin was 153. CXR showed no acute cardiopulmonary process and EKG afib with RVR. She was admitted to be managed for nonstemi as well as new onset A. fib with RVR. She was given a bolus of Cardizem in the ED and that brought the heart rate down. Troponins were cycled and trended downwards. It turned out that patient had had a positive stool for occult blood done on outpatient basis by her PCP on account of a hemoglobin being low. Hemoglobin in the hospital admission was around 11.5. She was therefore not anticoagulated. She had been referred to gastroenterology on outpatient basis. Gastroenterology was consu lted while she was once in the hospital. Cardiology was also consulted. She had EGD and colonoscopy which showed 1 5 mm polyp in the ascending colon which was removed as well as diverticulosis in the rectosigmoid and sigmoid colon and a single nonbleeding colonic angiodysplastic lesion which was treated with heater probe. She was subsequently commenced on anticoagulation for A. fib. Cardiology evaluated patient and did not think that she needed any further work- up as the elevated heart enzymes was likely due to the new onset A. fib. TSH was within normal limits. 2D echo done showed EF of 70% with no evidence of diastolic dysfunction and mildly enlarged left atrium as well as mild tricuspid valve insufficiency and trivial pericardial effusion and pulmonary artery systolic pressure of 60mmhg. Patient went into normal sinus rhythm and was rate controlled. She remained stable and did not have any more chest pain. She was discharged home on 02/23/2022. She was discharged on Eliquis and carvedilol. She is to follow-up with her primary care doctor and with cardiology within 1 to 2 weeks. Patient was seen and examined prior to discharge. Her daughter was by her bedside. She had no active complaints and had an uneventful night. She felt ready to go home. Review of systems otherwise negative. Vitals reviewed. Medication reviewed and reconciled. Physical Exam Const alert, oriented x3 and no apparent distress General Appearance: cooperative and comfortable Orientation / Consciousness: awake Exam Limitations: no limitations HEENT normocephalic, head/scalp atraumatic, hearing grossly normal bilaterally and mo ist oral mucous membranes Eyes PERRL, EOMs intact bilaterally and conjunctivae normal Neck no lymphadenopathy and supple Resp normal respiratory effort, no retractions, no use of accessory muscles and clear to auscultation bilaterally Cardio regular rate, regular rhythm, S1 normal heart sound, S2 normal heart sound and no murmurs GI normal to inspection, nondistended, normoactive bowel sounds, soft to palpation, non-tender and non-distended Extremity normal to inspection, full ROM and no clubbing, cyanosis or edema Skin no rashes or lesions noted Neuro oriented x3, CN's II-XII intact bilaterally, moves all extremities and no focal motor deficits Sensorium / Orientation: awake and alert Motor Exam: strength 5/5 throughout Psych affect normal Weight / BMI Weight Weight: 124 lb 12.506 oz Body Mass Index (BMI) 22.8 ABG / Lab / Microbiology Data Result Diagrams: 02/23/22 05:25 02/23/22 05:25 Laboratory: Laboratory Results - last 24 hr 02/23/22 05:25: WBC 6.8, RBC 3.02 L, Hgb 9.5 L, Hct 29.0 L, MCV 96.0, MCH 31.5, MCHC 32.8, RDW Std Deviation 44.8 H, RDW Coeff of Broderick 12.7, Plt Count 191, MPV 10.6, Immature Gran % (Auto) 0.100, Neut % (Auto) 51.9, Lymph % (Auto) 33.4, Bureau % (Auto) 9.2, Eos % (Auto) 4.8, Baso % (Auto) 0.6, Absolute Neuts (auto) 3.5, Absolute Lymphs (auto) 2.28, Nucleated RBC % 0 02/23/22 05:25: Sodium 142, Potassium 2.9 L, Chloride 113 H, Carbon Dioxide 20.0 L, Anion Gap 9, BUN 31 H, Creatinine 1.66 H, Estim Creat Clear Calc 19.60, Est GFR (MDRD) Af Amer 38 L, Est GFR (MDRD) Non-Af 31 L, BUN/Creatinine Ratio 18.7, Glucose 87, Calcium 8.1 L Radiography Diagnostic Testing: Radiology Impression Echocardiogram 02/22/22 05:55 Interpretation Summary The estimated ejection fraction is 70 %. No evidence for diastolic dysfunction. The left atrium is mildly enlarged. Mild tricuspid valve insufficiency. Trivial pericardial effusion. Ordering Physician: Sarah Nash Referring Physician: Anay Barnard Performed By: Jose Sánchez RCS D/C Instructions Discharge Diet: Low fat / Low cholesterol Discharge Activity: Return to Normal Activity Call your doctor if you observe: Shortness of breath, Dizziness, Swelling in the ankles, Chest pain and Increased palpitations (irregular heartbeat) Meaningful Use Info Meaningful Use Diagnoses (Choose all that apply): None applicable Discharge Plan Admission Admit Date/Time: 02/21/22 17:38 Primary Reason for Your Visit: afib with RVR, elevated troponin Attending Provider: Sarah Nash Primary Care Provider: Anay Barnard Consulting Providers: Neil Arroyo Discharge Orders/Prescriptions Prescriptions: New Eliquis 2.5 mg Tablet 2.5 mg PO BID Qty: 60 1RF Continued potassium chloride 10 mEq tablet extended release 10 meq PO .COMPLEX Rx Instructions: 10 mEq PO when takes Lasix; amlodipine 2.5 mg tablet 2.5 mg PO DAILY omeprazole 20 mg capsule,delayed release(DR/EC) 20 mg PO DAILY ascorbic acid (vitamin C) 1,000 mg tablet 1 g PO DAILY levothyroxine 25 mcg capsule 25 mcg PO DAILY latanoprost 1 DROP bottle 1 drp EACHEYE QHS Label Comments: EYE DROP atorvastatin 20 MG tablet 20 mg PO QODAY Label Comments: CHOLESTEROL clobetasol 15 GM ointment 15 gm TP DAILY Label Comments: CREAM timolol maleate 1 DROP drops 1 drp RIGHT EYE BID Label Comments: EYE DROPS losartan 100 MG tablet 100 mg PO DAILY Label Comments: BLOOD PRESSURE/HEART brimonidine 15 ML drops 1 drp RIGHT EYE DAILY Label Comments: EYE DROPS cholecalciferol (vitamin D3) 2,000 UNIT capsule 2,000 unit PO DAILY Label Comments: SUPPLEMENT alendronate 70 mg tablet 70 mg PO Q7D@0700 Label Comments: BONES furosemide 20 mg tablet 20 mg PO Q OTHER DAY carvedilol 12.5 mg tablet 12.5 mg PO BID Referrals / Follow Up: Aany Barnard MD [Primary Care Provider] - Within 2 Weeks Fredis Marie MD [Med Staff - Active Staff] - Within 2 Weeks Disposition Disposition (needs filled in before D/C Order can be placed): Home, Self Care Charges/Coding Visit Charges Inpatient E&M: 04104 Disch Hosp
== END 2022-02-23 13:47 | disposition home or self-care (01) | DRG 280 ==
LOC: ED 17:45 → PCU 18:02
PROVIDERS: Internal Medicine Gastroenterology; Admitting Provider Student in an Organized Health Care Education/Training Program; Emergency Provider Emergency Medicine; PCP Internal Medicine; Visit Provider Student in an Organized Health Care Education/Training Program
PROC: 0DJD8ZZ Inspection of Lower Intestinal Tract, Via Natural or Artificial Opening Endoscopic (ICD-10-PCS; CPT 45378; principal; 2022-02-22 08:00)
DX: I48.91 Unspecified atrial fibrillation (principal); I21.A1 Myocardial infarction type 2; K55.21 Angiodysplasia of colon with hemorrhage; K29.71 Gastritis, unspecified, with bleeding; K57.31 Diverticulosis of large intestine without perforation or abscess with bleeding; N17.9 Acute kidney failure, unspecified; K63.5 Polyp of colon; E78.00 Pure hypercholesterolemia, unspecified; K64.0 First degree hemorrhoids; E03.9 Hypothyroidism, unspecified; I10 Essential (primary) hypertension; D50.9 Iron deficiency anemia, unspecified; K44.9 Diaphragmatic hernia without obstruction or gangrene; Z79.83 Long term (current) use of bisphosphonates; Z79.899 Other long term (current) drug therapy; Z87.891 Personal history of nicotine dependence
CPT/HCPCS: 36415; 71046; 80048; 80061; 84484; 85025; 88305; 88342; 93005; 93306; 97162; 97165; 99285; J7030; Q9957; A4216

== ENCOUNTER → 2022-03-25 | Outpatient (CLI) | payer MEDICARE, SELFPAY ==
[2022-03-25 17:24] LABS: BNP,B-Type NATRIURETIC PEPTIDE 544.7 pg/mL (0-100)
[2022-03-25 17:28] LABS: Anion Gap 8 (5-15); BUN 27 mg/dL (7-18); Calcium,Total 9.1 mg/dL (8.5-10.1); Chloride 112 mmol/L (98-107); Creatinine, Serum 1.69 mg/dL (0.55-1.02); EST Glomerular Filtration Rate 31 mL/min (>60); Est Glom Filt Rate - Afr Amer 37 mL/min (>60); Glucose 102 mg/dL (74-106); Potassium 3.1 mmol/L (3.5-5.1); Sodium Level 141 mmol/L (136-145)
== END | disposition home or self-care (01) ==
LOC: LAB 16:18
PROVIDERS: PCP Internal Medicine; Visit Provider Nurse Practitioner Family
DX: R06.09 Other forms of dyspnea (principal)
CPT/HCPCS: 36415; 80048; 83880

== ENCOUNTER → 2022-03-31 | Outpatient (CLI) | payer MEDICARE, SELFPAY ==
[2022-03-31 16:54] LABS: Anion Gap 8 (5-15); BUN 37 mg/dL (7-18); Chloride 111 mmol/L (98-107); Creatinine, Serum 1.76 mg/dL (0.55-1.02); EST Glomerular Filtration Rate 29 mL/min (>60); Est Glom Filt Rate - Afr Amer 35 mL/min (>60); Glucose 108 mg/dL (74-106); Potassium 3.2 mmol/L (3.5-5.1); Sodium Level 142 mmol/L (136-145)
== END | disposition home or self-care (01) ==
LOC: LAB 15:04
PROVIDERS: PCP Internal Medicine; Referring Provider Nurse Practitioner Family; Visit Provider Nurse Practitioner Family
DX: R06.09 Other forms of dyspnea (principal); I48.91 Unspecified atrial fibrillation; R00.2 Palpitations; I10 Essential (primary) hypertension
CPT/HCPCS: 36415; 80048

== ENCOUNTER 2022-04-04 11:01 | Emergency (ER) | payer MEDICARE, SELFPAY ==
[2022-04-04 11:02] VITALS: BP 130/91; PULSE 67; RESP 16; TEMP 36.1; O2SAT 99; BMI 24.3
--- NOTE | 2022-04-04 11:50 | EDS_ITS ---
HPI History of Present Illness Chief Complaint: Complaint Informant: patient and family Narrative Narrative: Patient is an 86-year-old female presenting with daughter for urinary symptoms. Patient has had 2 days of dribbling urine. She states she has twitching in her urethral area when she does urinate. Her urine has been clear. She denies any pain with urination. Denies any blood in her urine. No she has chronic urgency which is unchanged. Notes that her past medical history recently has been quite complicated. Starting around February 23 she has had persistent diarrhea. She went to the ER that day for chest discomfort and was diagnosed with new onset atrial fibrillation. She is also found to be anemic and admitted to the hospital. She had EGD/colonoscopy with Dr. Collins where she is found have a gastric ulcer, angiodysplastic lesion of the cecum and a colonic polyp that were cauterized and removed respectively. Since being on the Eliquis she has been dealing with this diarrhea. She denies any black or blood in her stools. This week she was switched from Eliquis to Xarelto but continues to have diarrhea. In addition she was diagnosed with pneumonia on March 19 and was on a course of doxycycline and Augmentin which she finished last week. While she continues to have diarrhea and has slightly improved in frequency and volume. She did have a repeat x-ray on 04/02 through [facility] which showed again fluid and atelectasis on both lungs. Stable in the left, slightly increased on the right, superimposed consolidation on the right lung base cannot be excluded. X-ray on 03/20 in [facility] system showed early developing pneumonia cannot be excluded with fluid analysis of both lung bases and mild cardiomegaly. Patient notes that she follows with cardiology and did recently have her Lasix increased. Family is concerned that she is dehydrated now. Patient did have a negative C. difficile PCR on 03/31/2022. BMP yesterday showed a creatinine of 1.80, BUN of 33, potassium 3.6. Patient reports that she continues to have a cough and dyspnea on exertion but is not sure if it is worse than it has been. [facility] Medical History Acquired keratoderma Anemia Atrial fibrillation, new onset Essential hypertension Glaucoma Hemorrhage of anus and rectum Hernia HLD (hyperlipidemia) Near syncope Osteoporosis Palpitations Positive occult stool blood test Sweating Syncope Umbilical hernia Home Medications atorvastatin 20 mg tablet 20 mg PO QODAY Cholesterol 12/06/16 [History Last Taken 02/19/22] cholecalciferol (vitamin D3) 50 mcg (2,000 unit) capsule 2,000 unit PO DAILY Supplement 12/06/16 [History Last Taken 02/03/18 14:00] latanoprost 0.005 % eye drops 1 drp EACHEYE QHS eye drops 12/06/16 [History Last Taken 02/20/22] timolol maleate 0.5 % eye drops 1 drp RIGHT EYE BID eye drops 12/06/16 [History Last Taken 02/20/22] alendronate 70 mg tablet 70 mg PO Q7D@0700 Bones 09/12/19 [History Last Taken 02/16/22] ascorbic acid (vitamin C) 1,000 mg tablet 1 g PO DAILY supplement 11/21/20 [History Last Taken Unknown] amlodipine 2.5 mg tablet 2.5 mg PO BID bp 03/25/22 [History Last Taken Unknown] amoxicillin 875 mg-potassium clavulanate 125 mg tablet 1 tab PO BID 03/25/22 [History Last Taken Unknown] benzonatate 100 mg capsule 100 mg PO TID PRN 03/25/22 [History Last Taken Unknown] brimonidine 0.15 % eye drops 1 drp ophthalmic (eye) BID 03/25/22 [History Last Taken Unknown] carvedilol 6.25 mg tablet 6.25 mg PO BID 03/25/22 [History Last Taken Unknown] clobetasol 0.05 % topical ointment 15 g topical .COMPLEX vaginal cream 03/25/22 [History Last Taken Unknown] doxycycline hyclate 100 mg tablet mg PO 03/25/22 [History Last Taken Unknown] levothyroxine 25 mcg tablet 25 mcg PO DAILY 03/25/22 [History Last Taken Unknown] losartan 25 mg tablet 25 mg PO DAILY 03/25/22 [History Last Taken Unknown] omeprazole 40 mg capsule,delayed release 40 mg PO DAILY 03/25/22 [History Last Taken Unknown] potassium chloride 10 mEq tablet,extended release 10 meq PO DAILY supplement 03/25/22 [History Last Taken Unknown] rivaroxaban 15 mg tablet (Xarelto) 15 mg PO DAILY #30 tabs 03/25/22 [Rx Last Taken Unknown] furosemide 20 mg tablet 40 mg PO Q OTHER DAY PRN water pill 03/28/22 [History Last Taken Unknown] loperamide 2 mg capsule (Imodium A-D) 2 mg PO Q6H PRN loose stool #20 caps 04/04/22 [Rx Last Taken Unknown] ondansetron 4 mg disintegrating tablet 4 mg PO Q6H PRN nausea and vomiting #20 tabs 04/04/22 [Rx Last Taken Unknown] sulfamethoxazole 800 mg-trimethoprim 160 mg tablet (Bactrim DS) 1 tab PO BID 5 days #10 tabs 04/04/22 [Rx Last Taken Unknown] Allergy/AdvReac Type Severity Reaction Status Date / Time amantadine Allergy Rash Verified 04/04/22 11:02 cephalexin Allergy Rash Verified 04/04/22 11:02 erythromycin base Allergy Rash Verified 04/04/22 11:02 hydrochlorothiazide Allergy Rash Verified 04/04/22 11:02 IVP DYE Allergy Rash Uncoded 04/04/22 11:02 Family History Mother CAD (coronary artery disease) Father CAD (coronary artery disease) Brother CAD (coronary artery disease) Sister CAD (coronary artery disease) Surgical History H/O hernia repair History of colonoscopy History of hysteroscopy History of left heart catheterization (02/05/18) s/p left wrist ORIF Tubal ligation status Social History household members: none Smoking Status: Former smoker quit date: 06/29/76 alcohol intake: never substance use type: does not use caffeine: Yes (Occasionally) ROS ROS ED Constitutional Constitutional ED: Denies chills or fever(s) Eyes Eyes: Denies change in vision ENT ENT ED: Denies rhinorrhea or sore throat Cardiovascular Cardiovascular: Denies chest pain Respiratory/Chest Respiratory/Chest: Reports cough and dyspnea on exertion; Denies dyspnea Gastrointestinal Gastrointestinal: Reports diarrhea; Denies abdominal pain, nausea or vomiting Genitourinary Genitourinary ED: Reports dysuria and urinary frequency; Denies hematuria Musculoskeletal Musculoskeletal: Denies arthralgias or myalgias Integumentary Denies rash Neurologic Neurologic: Denies headache(s) or weakness Psychiatric Psychiatric: Denies anxiety Hematologic/Lymphatic Hematologic/Lymphatic: Reports easy bleeding and easy bruising EXAM Physical Exam Const Vital Signs: 04/04/22 11:02 Temperature 96.9 F L Temperature Source Temporal Pulse Rate 67 Respiratory Rate 16 Blood Pressure 130/91 H Blood Pressure Mean 104 Pulse Ox 99 Oxygen Delivery Method Room Air Positive well nourished and well developed General Appearance ED: well developed and NAD HEENT Reports moist mucous membranes Eyes PERRL and EOMs intact bilaterally General Eye ED: Negative for pale conjunctiva Neck No supple and no JVD Chest Wall inspection of chest normal and palpation of chest normal Resp normal respiratory effort Effort and Inspection: Negative for retractions Auscultation: diminished lung sounds right lower; Negative for rhonchi or wheezes Cardio regular rate and regular rhythm GI normal to inspection, nondistended, normoactive bowel sounds and non-tender Extremity normal to inspection Neuro oriented x3 and CN's II-XII intact bilaterally Motor Exam: Negative for general weakness Psych mental status grossly normal Skin no rashes or lesions noted and no wounds MDM MDM MDM Narrative Medical decision making narrative: Patient is evaluated for urinary symptoms. After further discussion she is also been having some chronic diarrhea with a negative recent C. difficile and dealing with pleural effusion with questionable pneumonia. She has been on a course antibiotics for this. Urinalysis is consistent with urinary tract infection with 10-25 white blood cells but no bacteria. Discussed risk and benefits of antibiotics but given her symptoms and recent diarrhea will treat with Bactrim and culture sent. Patient's vital signs are normal. She is nonhypoxic and she is ambulate in the ER with no hypoxia. X-ray performed interpreted by myself as well as radiology. There is a recurrent right pleural effusion with mild degree of vascular congestion and increased markings of the left lung base. Patient does not have a leukocytosis, tachypnea, change in her cough/sputum production or fever. I do not think there is an underlying pneumonia. Suspect this is more of a fluid balance/cardiorenal. Her creatinine is 1.8 which is near her baseline of 1.5. Patient will continue to follow-up closely with cardiology as well as her primary care doctor for fluid balance and renal function. Her BNP is mildly downtrending. Case discussed with her primary care doctor, Dr. Aguilar who is agreeable this plan of care. I do not think she requires admission at this time. In addition, patient is given a prescription for Imodium and Zofran to help with her symptoms. Her abdomen is soft and nontender I do not think abdominal imaging is indicated at this time. Patient and daughter agreeable with this plan of care. Patient and daughter counseled on return precautions. Discharged home in stable condition. Lab Data Attestation: I reviewed the patient's lab results. Labs: Laboratory Results - last 24 hr 04/04/22 04/04/22 04/04/22 12:10 12:10 12:10 WBC 7.0 RBC 4.06 L Hgb 12.6 Hct 41.1 MCV 101.2 H MCH 31.0 MCHC 30.7 L RDW Std Deviation 51.5 H RDW Coeff of Broderick 13.9 Plt Count 157 MPV 10.6 Immature Gran % (Auto) 0.300 Neut % (Auto) 66.7 Lymph % (Auto) 24.4 [place] % (Auto) 6.2 Eos % (Auto) 1.7 Baso % (Auto) 0.7 Absolute Neuts (auto) 4.6 Absolute Lymphs (auto) 1.70 Nucleated RBC % 0 Sodium 138 Potassium 4.9 Chloride 110 H Carbon Dioxide 21.0 Anion Gap 7 BUN 33 H Creatinine 1.80 H Estim Creat Clear Calc 18.07 Est GFR (MDRD) Af Amer 34 L Est GFR (MDRD) Non-Af 28 L BUN/Creatinine Ratio 18.3 Glucose 141 H Calcium 9.1 Total Bilirubin 0.70 AST 36 ALT 37 Alkaline Phosphatase 60 B-Natriuretic Peptide 481.3 H Total Protein 7.5 Albumin 3.4 Globulin 4.1 Albumin/Globulin Ratio 0.8 L Urine Color Urine Clarity Urine pH Ur Specific [place] Urine Protein Urine Glucose (UA) Urine Ketones Urine Occult Blood Urine Nitrite Urine Bilirubin Urine Urobilinogen Ur Leukocyte Esterase Urine RBC Urine WBC Ur Squamous Epith Cells Urine Bacteria Urine Mucus 04/04/22 13:45 WBC RBC Hgb Hct MCV MCH MCHC RDW Std Deviation RDW Coeff of [place]der[place] Plt Count MPV Immature Gran % (Auto) Neut % (Auto) Lymph % (Auto) [place] % (Auto) Eos % (Auto) Baso % (Auto) Absolute Neuts (auto) Absolute Lymphs (auto) Nucleated RBC % Sodium Potassium Chloride Carbon Dioxide Anion Gap BUN Creatinine Estim Creat Clear Calc Est GFR (MDRD) Af Amer Est GFR (MDRD) Non-Af BUN/Creatinine Ratio Glucose Calcium Total Bilirubin AST ALT Alkaline Phosphatase B-Natriuretic Peptide Total Protein Albumin Globulin Albumin/Globulin Ratio Urine Color Yellow Urine Clarity Sl. Cloudy Urine pH 6.0 Ur Specific [place] 1.020 Urine Protein 100 H Urine Glucose (UA) Normal Urine Ketones 5 H Urine Occult Blood 150 H Urine Nitrite Negative Urine Bilirubin Negative Urine Urobilinogen Normal Ur Leukocyte Esterase 100 H Urine RBC 5-10 SEEN Urine WBC 10-25 SEEN Ur Squamous Epith Cells 0-5 SEEN Urine Bacteria 0 SEEN Urine Mucus 0 SEEN Radiography Diagnostic Testing: Clinical Impression(s) from Imaging Studies Chest X-Ray 04/04/22 12:40 IMPRESSION: Small right pleural effusion with right basilar atelectasis and/or infiltrate with blunting of the left costophrenic angle and increased markings at the left lung base superimposed on mild degree of vascular congestion. Electronically Signed: Hans Puga MD at 13:06 EDT , Discharge Plan Triage Chief Complaint: Complaint ED Provider: Hannah Trejo Dx/Rx/DC Orders Clinical Impression: Cough, Acute UTI, Chronic diarrhea, Pleural effusion, CKD (chronic kidney disease) Instructions: ED Diarrhea, Unknown Cause, ED Pleural Effusion, ED Cystitis Female Adult Prescriptions: New sulfamethoxazole-trimethoprim [Bactrim DS] 800-160 mg tablet 1 tab PO BID 5 Days Qty: 10 0RF ondansetron 4 mg tablet,disintegrating 4 mg PO Q6H PRN (Reason: nausea and vomiting) Qty: 20 0RF loperamide [Imodium A-D] 2 mg capsule 2 mg PO Q6H PRN (Reason: loose stool) Qty: 20 0RF No Action potassium chloride 10 mEq tablet extended release 10 meq PO DAILY amlodipine 2.5 mg tablet 2.5 mg PO BID ascorbic acid (vitamin C) 1,000 mg tablet 1 g PO DAILY carvedilol 6.25 mg tablet 6.25 mg PO BID losartan 25 mg tablet 25 mg PO DAILY omeprazole 40 mg capsule,delayed release(DR/EC) 40 mg PO DAILY levothyroxine 25 mcg tablet 25 mcg PO DAILY brimonidine 0.15 % drops 1 drp ophthalmic (eye) BID doxycycline hyclate 100 mg tablet PO amoxicillin-pot clavulanate 875-125 mg tablet 1 tab PO BID benzonatate 100 mg capsule 100 mg PO TID PRN Xarelto 15 mg tablet 15 mg PO DAILY Qty: 30 12RF Rx Instructions: must administer with evening meal latanoprost 1 DROP bottle 1 drp EACHEYE QHS Label Comments: EYE DROP atorvastatin 20 MG tablet 20 mg PO QODAY Label Comments: CHOLESTEROL timolol maleate 1 DROP drops 1 drp RIGHT EYE BID Label Comments: EYE DROPS cholecalciferol (vitamin D3) 2,000 UNIT capsule 2,000 unit PO DAILY Label Comments: SUPPLEMENT alendronate 70 mg tablet 70 mg PO Q7D@0700 Label Comments: BONES clobetasol 0.05 % ointment 15 g topical .COMPLEX Label Comments: CREAM Rx Instructions: 15 grams topically 3 times per week; furosemide 20 mg tablet 40 mg PO Q OTHER DAY PRN (Reason: water pill) Primary Care Provider: Anay Barnard Referrals: Anay Barnard MD [Primary Care Provider] - Activity Restrictions/Additional Instructions: Watch her salt intake. Drink enough fluids to urinate regularly throughout the day on days that you do not take the Lasix. Follow-up closely with your primary care doctor and [facility] for cardiology. Return to the emergency room if you develop worsening symptoms, difficulty breathing or fevers. Disposition Disposition: Home, Self Care
[2022-04-04 12:25] LABS: Absolute Neutrophil Count 4.6 X10^3/uL (2.0-7.7); Basophil# 0.05 X10^3/uL; Basophil% 0.7 % (0-1); Eosinophil# 0.12 X10^3/uL; Eosinophils% 1.7 % (0-5); Hematocrit 41.1 % (37-47); Hemoglobin 12.6 g/dL (12.0-15.0); Lymphocyte % 24.4 % (19-41); Mean Corp Hgb Conc 30.7 g/dL (32-36); Mean Corpuscular Volume 101.2 fL (81-99); Mean Platelet Vol. 10.6 fl (6.2-12.0); Monocyte# 0.43 X10^3/uL; Monocyte% 6.2 % (0-10); NRBC Flagged by Analyzer 0 % (0-5); Neutrophil # 4.64 X10^3/uL (2.7-7.7); Neutrophil % 66.7 % (47-70); Platelet Count 157 K/mm3 (150-450); RBC Distribution Width CV 13.9 % (11.6-14.6); RBC Distribution Width SD 51.5 fl (35.1-43.9); Red Blood Count 4.06 M/mm3 (4.2-5.4)
--- NOTE | 2022-04-04 12:40 | RAD_ITS ---
STUDY: X-RAY CHEST REASON FOR EXAM: Female, 86 years old. Sob, cough TECHNIQUE: PA and lateral views of the chest. COMPARISON: Comparison is made with prior study 02/21/2022. FINDINGS: 7 survey small right pleural effusion with right basilar atelectasis and/or infiltrate. Mild degree of increased markings at the left lung base suggestive of atelectasis with blunting of the left costophrenic angle. Mild degree of vascular congestion. Normal size heart. Normal mediastinum and myke. Normal visualized pulmonary arteries. There is atherosclerotic calcification of the aortic arch with tortuosity. There are diffuse degenerative changes of the visualized thoracic spine. Normal visualized ribs, clavicles, and shoulders. There is no demonstrated abnormality of the visualized soft tissue structures of the upper abdomen. RAD/Chest PA and Lateral IMPRESSION: Small right pleural effusion with right basilar atelectasis and/or infiltrate with blunting of the left costophrenic angle and increased markings at the left lung base superimposed on mild degree of vascular congestion. Electronically Signed: Hans Puga MD at 13:06 EDT ,
[2022-04-04 12:54] LABS: ALB/GLOB Ratio 0.8 RATIO (0.9-2.4); AST(SGOT) 36 U/L (15-37); Alanine Aminotransfer ALT/SGPT 37 U/L (13-56); Albumin, Serum 3.4 g/dL (3.2-5.0); Alkaline Phosphatase 60 U/L (45-117); Anion Gap 7 (5-15); BUN 33 mg/dL (7-18); BUN/Creat Ratio 18.3 RATIO (10-20); Calcium,Total 9.1 mg/dL (8.5-10.1); Chloride 110 mmol/L (98-107); EST Glomerular Filtration Rate 28 mL/min (>60); Est Glom Filt Rate - Afr Amer 34 mL/min (>60); Estimated Creatinine Clearance 18.07 ml/min; Globulin 4.1 g/dL (2.2-4.2); Glucose 141 mg/dL (74-106); Potassium 4.9 mmol/L (3.5-5.1); Protein, Total 7.5 g/dL (6.4-8.2); Sodium Level 138 mmol/L (136-145)
[2022-04-04 12:58] LABS: BNP,B-Type NATRIURETIC PEPTIDE 481.3 pg/mL (0-100)
[2022-04-04 13:50] LABS: Bacteria 0 SEEN /hpf (None Seen); Mucous, Urine 0 SEEN /hpf (<or=2+)
[2022-04-04 13:55] LABS: Color, Urine Yellow (Yellow); Glucose, Dipstick Normal (Normal); Ketone-Dipstick 5 mg/dl (Negative); Leukocyte Esterase-Dipstick 100 /ul (Negative); Nitrite-Dipstick Negative (Negative); Occult Blood-Urine 150 /ul (Negative); Protein-Dipstick 100 mg/dl (Negative); Urine Bilirubin Dipstick Negative (Negative); Urine Clarity Sl. Cloudy (Clear); Urine Urobilinogen Normal (Normal)
[2022-04-04 14:12] LABS: Red Blood Cells-Urine 5-10 SEEN /hpf (0-5); Squamous Epithelial Cells - UA 0-5 SEEN /hpf (5-10); White Blood Cells 10-25 SEEN /hpf (0-5)
[2022-04-04] MEDS: Ondansetron ODT 4 MG Tablet PO (15:35)
[2022-04-04] MEDS: Smz/Tmp Ds Tablet 1 TABLET PO (15:35)
[2022-04-04 15:41] VITALS: O2SAT 97
== END 2022-04-04 16:35 | disposition home or self-care (01) ==
PROVIDERS: Emergency Provider Emergency Medicine; PCP Internal Medicine; Visit Provider Emergency Medicine
DX: N39.0 Urinary tract infection, site not specified (principal); I48.91 Unspecified atrial fibrillation; R06.00 Dyspnea, unspecified; K52.9 Noninfective gastroenteritis and colitis, unspecified; J90 Pleural effusion, not elsewhere classified; J98.11 Atelectasis; I12.9 Hypertensive chronic kidney disease with stage 1 through stage 4 chronic kidney disease, or unspecified chronic kidney disease; N18.9 Chronic kidney disease, unspecified; E78.5 Hyperlipidemia, unspecified; Z79.01 Long term (current) use of anticoagulants; Z79.890 Hormone replacement therapy; Z79.899 Other long term (current) drug therapy; Z87.891 Personal history of nicotine dependence
CPT/HCPCS: 71046; 80053; 81001; 83880; 85025; 87086; 99284; A4216

== ENCOUNTER 2022-04-24 14:28 | Emergency (ER) | payer MEDICARE, SELFPAY ==
[2022-04-24 14:36] VITALS: BP 144/89; PULSE 54; RESP 14; TEMP 36.8; O2SAT 99; BMI 23.9
--- NOTE | 2022-04-24 14:57 | EDS_ITS ---
HPI History of Present Illness Chief Complaint: Hypertension Narrative Narrative: 86-year-old female with history of atrial fibrillation on metoprolol 50 mg p.o. daily and on Xarelto presenting with shortness of breath. She states she is short of breath when she starts walking. She feels generally weak with exertion. She does not have any chest pain. She is not had a fever, chills. She does report she is having difficulty sleeping at night for the last couple of days. She is not had any black or bloody stools. She states she was recently treated for pneumonia about a month ago. She states that this did improve. [facility] Medical History Acquired keratoderma Anemia Atrial fibrillation, new onset Essential hypertension Glaucoma Hemorrhage of anus and rectum Hernia HLD (hyperlipidemia) Near syncope Osteoporosis Palpitations Positive occult stool blood test Sweating Syncope Umbilical hernia Home Medications atorvastatin 20 mg tablet 20 mg PO QODAY Cholesterol 12/06/16 [History Last Taken 02/19/22] latanoprost 0.005 % eye drops 1 drp EACHEYE QHS eye drops 12/06/16 [History Last Taken 02/20/22] timolol maleate 0.5 % eye drops 1 drp RIGHT EYE BID eye drops 12/06/16 [History Last Taken 02/20/22] alendronate 70 mg tablet 70 mg PO Q7D@0700 Bones 09/12/19 [History Last Taken 02/16/22] benzonatate 100 mg capsule 100 mg PO TID PRN 03/25/22 [History Last Taken Unknown] brimonidine 0.15 % eye drops 1 drp ophthalmic (eye) BID 03/25/22 [History Last Taken Unknown] levothyroxine 25 mcg tablet 25 mcg PO DAILY 03/25/22 [History Last Taken Unknown] losartan 25 mg tablet 25 mg PO DAILY 03/25/22 [History Last Taken Unknown] omeprazole 40 mg capsule,delayed release 40 mg PO DAILY 03/25/22 [History Last Taken Unknown] rivaroxaban 15 mg tablet (Xarelto) 15 mg PO DAILY #30 tabs 03/25/22 [Rx Last Taken Unknown] furosemide 20 mg tablet 40 mg PO Q OTHER DAY PRN water pill 03/28/22 [History [place] st Taken Unknown] loperamide 2 mg capsule (Imodium A-D) 2 mg PO Q6H PRN loose stool #20 caps 04/04/22 [Rx Last Taken Unknown] ondansetron 4 mg disintegrating tablet 4 mg PO Q6H PRN nausea and vomiting #20 tabs 04/04/22 [Rx Last Taken Unknown] metoprolol succinate 50 mg tablet,extended release 24 hr 50 mg PO DAILY 04/18/22 [History Last Taken Unknown] potassium chloride 10 mEq tablet,extended release 10 meq PO DAILY supplement #90 tabs 04/18/22 [Rx Last Taken Unknown] metoprolol succinate 50 mg tablet,extended release 24 hr 50 mg PO BID #60 tabs 04/24/22 [Rx Last Taken Unknown] Allergy/AdvReac Type Severity Reaction Status Date / Time amantadine Allergy Rash Verified 04/24/22 14:35 cephalexin Allergy Rash Verified 04/24/22 14:35 erythromycin base Allergy Rash Verified 04/24/22 14:35 hydrochlorothiazide Allergy Rash Verified 04/24/22 14:35 IVP DYE Allergy Rash Uncoded 04/24/22 14:35 Family History Mother CAD (coronary artery disease) Father CAD (coronary artery disease) Brother CAD (coronary artery disease) Sister CAD (coronary artery disease) Surgical History H/O hernia repair History of colonoscopy History of hysteroscopy History of left heart catheterization (02/05/18) s/p left wrist ORIF Tubal ligation status Social History household members: none Smoking Status: Former smoker quit date: 06/29/76 alcohol intake: never substance use type: does not use caffeine: Yes (Occasionally) ROS ROS ED Constitutional Constitutional ED: Denies chills or fever(s) Eyes Eyes: Denies change in vision ENT ENT ED: Denies rhinorrhea or sore throat Cardiovascular Cardiovascular: Reports palpitations and racing heartbeat Respiratory/Chest Respiratory/Chest: Reports dyspnea on exertion Gastrointestinal Gastrointestinal: Denies abdominal pain or constipation Genitourinary Genitourinary ED: Denies dysuria or hematuria Musculoskeletal Musculoskeletal: Denies arthralgias or back pain Integumentary Denies abscess or Abrasions Neurologic Neurologic: Denies headache(s) or paresthesias Psychiatric Psychiatric: Denies anxiety or depression EXAM Physical Exam Const Vital Signs: 04/24/22 14:36 04/24/22 14:51 Temperature 98.2 F Temperature Source Temporal Pulse Rate 54 L Respiratory Rate 14 Respiratory Effort Short of Breath Blood Pressure 144/89 H Blood Pressure Mean 107 Pulse Ox 99 Oxygen Delivery Method Room Air Positive well nourished General Appearance ED: NAD; Negative for pallor HEENT Reports moist mucous membranes Negative for trauma Eyes PERRL and EOMs intact bilaterally General Eye ED: Negative for pale conjunctiva or scleral icterus Neck no lymphadenopathy Chest Wall inspection of chest normal and palpation of chest normal Resp normal respiratory effort and clear to auscultation bilaterally Cardio Rate: tachycardic Rhythm: abnormal rhythm irregularly irregular GI normal to inspection, nondistended, normoactive bowel sounds Extremity normal to inspection Neuro oriented x3 and CN's II-XII intact bilaterally Sensorium / Orientation: alert Psych mental status grossly normal Skin no rashes or lesions noted and no wounds General Skin Exam: Negative for jaundice or pallor MDM MDM MDM Narrative Medical decision making narrative: Patient presenting with generalized fatigue and difficulty sleeping. She states she has exertional weakness. She denies chest pain however. Her initial vital signs showed that her blood pressure was 144/89 and her heart rate was 54 but as I entered the room its in the 150s and it does vary down to 110?120 range at times. She has a history of atrial fibrillation. Patient is anticoagulant on Xarelto. I will give her Cardizem 20 mg IV. She reports to me that she takes metoprolol 50 mg p.o. daily. She also takes losartan for her blood pressure. Treated for pneumonia about a month ago but does not have a cough, fever, chills, body aches. Chest x-ray today shows again right-sided pleural effusion. Patient's not tachypneic, hypoxic. EKG was obtained and her initial EKG shows atrial fibrillation with RVR at a rate of 157 bpm. After Cardizem patient now has a heart rate of 89 bpm however this is still irregular and appears to be A. fib. On the monitor she appears to be going in and out of A. fib in a sinus rhythm. Her rate is controlled in the 70s. I spoke with Dr. Arroyo because her high-sensitivity troponin was elevated at 172 and this is likely due to her being in A. fib. She does not report any chest pain. She feels improved with treatment. He recommended increasing her metoprolol to 50 mg p.o. twice daily. She will stay on her losartan. She was counseled to continue her Lasix every other day. Patient will follow-up outpatient with cardiology. Turn precautions discussed. Impression: 1. Atrial fibrillation with RVR 2. Insomnia 3. Dyspnea on exertion Lab Data Attestation: I reviewed the patient's lab results. Labs: Laboratory Results - last 24 hr 04/24/22 04/24/22 04/24/22 15:25 15:25 15:25 WBC 12.7 H RBC 4.44 Hgb 13.7 Hct 42.5 MCV 95.7 MCH 30.9 MCHC 32.2 RDW Std Deviation 47.8 H RDW Coeff of [place]der[place] 13.5 Plt Count 211 MPV 10.5 Immature Gran % (Auto) 0.400 Neut % (Auto) 74.5 H Lymph % (Auto) 17.6 L [place] % (Auto) 6.6 Eos % (Auto) 0.3 Baso % (Auto) 0.6 Absolute Neuts (auto) 9.5 H Absolute Lymphs (auto) 2.24 Nucleated RBC % 0 Sodium 140 Potassium 3.7 Chloride 106 Carbon Dioxide 25.0 Anion Gap 9 BUN 32 H Creatinine 1.90 H Estim Creat Clear Calc 17.12 Est GFR (MDRD) Af Amer 32 L Est GFR (MDRD) Non-Af 27 L BUN/Creatinine Ratio 16.8 Glucose 118 H Calcium 9.5 Troponin I High Sens 172 H* Urine Color Cancelled Urine Clarity Cancelled Urine pH Cancelled Ur Specific [place] Cancelled U Specif Grav (Refrac) Cancelled Urine Protein Cancelled Urine Glucose (UA) Cancelled Urine Ketones Cancelled Urine Occult Blood Cancelled Urine Nitrite Cancelled Urine Bilirubin Cancelled Urine Urobilinogen Cancelled Ur Leukocyte Esterase Cancelled Urine RBC Cancelled Urine WBC Cancelled Ur Squamous Epith Cells Cancelled Ur Transition Epith Cell Cancelled Ur Renal Epithelial Cell Cancelled Calcium Oxalate Crystal Cancelled Uric Acid Crystals Cancelled Triple Phos Crystals Cancelled Other Crystals Cancelled Amorphous Sediment Cancelled Urine Bacteria Cancelled Hyaline Casts Cancelled Fine Granular Casts Cancelled Coarse Granular Casts Cancelled Waxy Casts Cancelled RBC Casts Cancelled WBC Casts Cancelled Urine Mucus Cancelled Urine Trichomonas Cancelled Urine Yeast Cancelled Discharge Plan Triage Chief Complaint: Hypertension ED Provider: Franklin Tam Dx/Rx/DC Orders Instructions: ED AFIB Prescriptions: New metoprolol succinate 50 mg tablet extended release 24 hr 50 mg PO BID Qty: 60 0RF No Action losartan 25 mg tablet 25 mg PO DAILY omeprazole 40 mg capsule,delayed release(DR/EC) 40 mg PO DAILY levothyroxine 25 mcg tablet 25 mcg PO DAILY brimonidine 0.15 % drops 1 drp ophthalmic (eye) BID benzonatate 100 mg capsule 100 mg PO TID PRN Xarelto 15 mg tablet 15 mg PO DAILY Qty: 30 12RF Rx Instructions: must administer with evening meal metoprolol succinate 50 mg tablet extended release 24 hr 50 mg PO DAILY potassium chloride 10 mEq tablet extended release 10 meq PO DAILY Qty: 90 3RF latanoprost 1 DROP bottle 1 drp EACHEYE QHS Label Comments: EYE DROP atorvastatin 20 MG tablet 20 mg PO QODAY Label Comments: CHOLESTEROL timolol maleate 1 DROP drops 1 drp RIGHT EYE BID Label Comments: EYE DROPS alendronate 70 mg tablet 70 mg PO Q7D@0700 Label Comments: BONES ondansetron 4 mg tablet,disintegrating 4 mg PO Q6H PRN (Reason: nausea and vomiting) Qty: 20 0RF loperamide [Imodium A-D] 2 mg capsule 2 mg PO Q6H PRN (Reason: loose stool) Qty: 20 0RF furosemide 20 mg tablet 40 mg PO Q OTHER DAY PRN (Reason: water pill) Primary Care Provider: Anay Barnard Referrals: Anay Barnard MD [Primary Care Provider] - Brigido Frey MD [Med Staff - Active Staff] - As soon as possible Disposition Disposition: Home, Self Care
--- NOTE | 2022-04-24 15:17 | EKG12_ITS ---
Test Reason : HTN Blood Pressure : / mmHG Vent. Rate : 157 BPM Atrial Rate : 000 BPM P-R Int : 000 ms QRS Dur : 070 ms QT Int : 288 ms P-R-T Axes : 000 066 202 degrees QTc Int : 465 ms Atrial fibrillation with rapid ventricular response Marked ST abnormality, possible lateral subendocardial injury Abnormal ECG Confirmed by ELIZA FERNANDEZ, GALDYS ([id number]), offline editor LUH ASHLEY ([id number]) on 04/25/2022 2:36:42 P M Referred By: Confirmed By:ANIYA KAY MD
[2022-04-24] MEDS: dilTIAZem 25 MG/5 ML Vial 20 MG IV BOLUS (15:32)
--- NOTE | 2022-04-24 15:37 | EKG12_ITS ---
Test Reason : REPEAT-CARDIZEM Blood Pressure : / mmHG Vent. Rate : 089 BPM Atrial Rate : 000 BPM P-R Int : 000 ms QRS Dur : 076 ms QT Int : 332 ms P-R-T Axes : 000 060 175 degrees QTc Int : 403 ms Atrial fibrillation with a competing junctional pacemaker Nonspecific ST and T wave abnormality Abnormal ECG Confirmed by ELIZA FERNANDEZ, GLADYS ([id number]), sports editor LUH ASHLEY ([id number]) on 04/25/2022 2:36:55 P M Referred By: REBECCA Confirmed By:ANIYA KAY MD
--- NOTE | 2022-04-24 15:50 | RAD_ITS ---
EXAM: XR CHEST, 1 VIEW CLINICAL INDICATION: weakness TECHNIQUE: Frontal view of the chest. This report was created using [employer] report generation technology. COMPARISON: 04/04/2022 FINDINGS: LUNGS AND PLEURAL SPACES: See below. HEART: Unremarkable. Cardiac silhouette not enlarged. MEDIASTINUM: Central airways and mediastinal contour are unremarkable. BONES/JOINTS: There is a right-sided effusion with right lower lobe airspace disease. SOFT TISSUES: Unremarkable. RAD/Chest 1 View (Portable) IMPRESSION: Persistent right-sided effusion with right lower lobe atelectasis or pneumonia. There has been no significant change from reference exam. Electronically Signed: Ritesh Guadarrama MD at 16:53 EDT ,
[2022-04-24 15:53] LABS: Absolute Lymphocyte Count 2.24 X10^3/uL (0.83-4.51); Absolute Neutrophil Count 9.5 X10^3/uL (2.0-7.7); Basophil# 0.07 X10^3/uL; Basophil% 0.6 % (0-1); Eosinophil# 0.04 X10^3/uL; Eosinophils% 0.3 % (0-5); Hematocrit 42.5 % (37-47); Hemoglobin 13.7 g/dL (12.0-15.0); Lymphocyte # 2.24 X10^3/ul (0.83-4.51); Lymphocyte % 17.6 % (19-41); Mean Corp Hgb Conc 32.2 g/dL (32-36); Mean Corpuscular Hgb 30.9 pg (27.0-32.0); Mean Corpuscular Volume 95.7 fL (81-99); Mean Platelet Vol. 10.5 fl (6.2-12.0); Monocyte# 0.84 X10^3/uL; Monocyte% 6.6 % (0-10); NRBC Flagged by Analyzer 0 % (0-5); Neutrophil # 9.48 X10^3/uL (2.7-7.7); Neutrophil % 74.5 % (47-70); Platelet Count 211 K/mm3 (150-450); RBC Distribution Width CV 13.5 % (11.6-14.6); RBC Distribution Width SD 47.8 fl (35.1-43.9); Red Blood Count 4.44 M/mm3 (4.2-5.4); White Blood Count 12.7 K/mm3 (4.4-11.0)
[2022-04-24 16:11] LABS: Anion Gap 9 (5-15); BUN 32 mg/dL (7-18); BUN/Creat Ratio 16.8 RATIO (10-20); Calcium,Total 9.5 mg/dL (8.5-10.1); Chloride 106 mmol/L (98-107); EST Glomerular Filtration Rate 27 mL/min (>60); Est Glom Filt Rate - Afr Amer 32 mL/min (>60); Estimated Creatinine Clearance 17.12 ml/min; Glucose 118 mg/dL (74-106); Potassium 3.7 mmol/L (3.5-5.1); Sodium Level 140 mmol/L (136-145); Troponin-I HS 172 pg/mL (3.0-54.0)
[2022-04-24 16:41] VITALS: BP 152/57; PULSE 78; RESP 16; O2SAT 97
== END 2022-04-24 16:42 | disposition home or self-care (01) ==
PROVIDERS: Emergency Provider Student in an Organized Health Care Education/Training Program; PCP Internal Medicine; Visit Provider Student in an Organized Health Care Education/Training Program
DX: I48.91 Unspecified atrial fibrillation (principal); G47.00 Insomnia, unspecified; R06.00 Dyspnea, unspecified; I10 Essential (primary) hypertension; E78.5 Hyperlipidemia, unspecified; J90 Pleural effusion, not elsewhere classified; Z79.01 Long term (current) use of anticoagulants; M81.0 Age-related osteoporosis without current pathological fracture; Z79.890 Hormone replacement therapy; Z79.899 Other long term (current) drug therapy; Z87.891 Personal history of nicotine dependence
CPT/HCPCS: 71045; 80048; 84484; 85025; 93005; 96374; 99281; 99282; A4216

== ENCOUNTER 2022-05-01 16:56 | Inpatient (IN) | payer MEDICARE, SELFPAY ==
[2022-05-01] VITALS (15 sets, daily range): BP systolic 77–145; BP diastolic 49–86; PULSE 51–138; RESP 16–23; TEMP 36.3–36.7; O2SAT 92–100; BMI 24.3; BMI 23.6
--- NOTE | 2022-05-01 17:10 | EKG12_ITS ---
Test Reason : CP Blood Pressure : / mmHG Vent. Rate : 142 BPM Atrial Rate : 000 BPM P-R Int : 000 ms QRS Dur : 072 ms QT Int : 318 ms P-R-T Axes : 000 093 175 degrees QTc Int : 489 ms Atrial fibrillation with rapid ventricular response Rightward axis Marked ST abnormality, possible lateral subendocardial injury Abnormal ECG Confirmed by TC FERNANDEZ, MALIK ([id number]), news videotape editor LUH ASHLEY ([id number]) on 05/05/2022 1:14:36 PM Referred By: ABEBE Confirmed By:MALIK MONTEZ MD
--- NOTE | 2022-05-01 17:59 | EX.ED.DYSGE1 ---
HPI History of Present Illness Chief Complaint: Palpitations Detail of Chief Complaint: History of atrial fibrillation diagnosed January 2022 Informant: patient and family Onset/Context/Timing Onset: - (Sent from doctor's office because of rapid heartbeat.) Context: - (Unknown) Timing: Continuous Quality: A. fib with RVR, fatigue, dyspnea on exertion, chest heaviness Location: Cardiovascular Current Severity: Moderate Maximum Severity: Severe Worsened by: Nothing Relieved by: Nothing Associated Symptoms Associated Symptoms: Nausea Narrative Narrative: Is an 86-year-old woman who was recently diagnosed with atrial fibrillation on anticoagulant. She presents because of rapid heart rate. She reports dyspnea, dyspnea exertion, pedal edema over the past several days. She also reports fatigue for the past week. She was diagnosed with atrial fibrillation in January. She was seen Dr. Frey's nurse practitioner and having outpatient tests set up. She has not been cardioverted. She has not missed any anticoagulant dose nor has she missed any of her cardiac meds over the past several days. She denies fever, chills night sweats. She states the chest pressure started prior to presentation. There is no radiation. No associated symptoms. She denies black or maroon-colored stool. She denies fever, chills night sweats. She denies weight gain or weight loss. Prior similar symptoms: Yes Recent Illness/Hospitalization: Yes [facility] Medical History Acquired keratoderma Anemia Atrial fibrillation, new onset Essential hypertension Glaucoma Hemorrhage of anus and rectum Hernia HLD (hyperlipidemia) Near syncope Osteoporosis Palpitations Positive occult stool blood test Sweating Syncope Umbilical hernia Home Medications atorvastatin 20 mg tablet 20 mg PO QODAY Cholesterol 12/06/16 [History Last Taken 02/19/22] latanoprost 0.005 % eye drops 1 drp EACHEYE QHS eye drops 12/06/16 [History Last Taken 02/20/22] timolol maleate 0.5 % eye drops 1 drp RIGHT EYE BID eye drops 12/06/16 [History Last Taken 02/20/22] alendronate 70 mg tablet 70 mg PO Q7D@0700 Bones 09/12/19 [History Last Taken 02/16/22] benzonatate 100 mg capsule 100 mg PO TID PRN 03/25/22 [History Last Taken Unknown] brimonidine 0.15 % eye drops 1 drp ophthalmic (eye) BID 03/25/22 [History Last Taken Unknown] levothyroxine 25 mcg tablet 25 mcg PO DAILY 03/25/22 [History Last Taken Unknown] omeprazole 40 mg capsule,delayed release 40 mg PO DAILY 03/25/22 [History Last Taken Unknown] rivaroxaban 15 mg tablet (Xarelto) 15 mg PO DAILY #30 tabs 03/25/22 [Rx Last Taken Unknown] furosemide 20 mg tablet 40 mg PO Q OTHER DAY PRN water pill 03/28/22 [History Last Taken Unknown] loperamide 2 mg capsule (Imodium A-D) 2 mg PO Q6H PRN loose stool #20 caps 04/04/22 [Rx Last Taken Unknown] ondansetron 4 mg disintegrating tablet 4 mg PO Q6H PRN nausea and vomiting #20 tabs 04/04/22 [Rx Last Taken Unknown] potassium chloride 10 mEq tablet,extended release 10 meq PO DAILY supplement #90 tabs 04/18/22 [Rx Last Taken Unknown] metoprolol succinate 50 mg tablet,extended release 24 hr 50 mg PO BID #60 tabs 04/24/22 [Rx Last Taken Unknown] losartan 25 mg tablet 50 mg PO DAILY 05/01/22 [History Last Taken Unknown] Allergy/AdvReac Type Severity Reaction Status Date / Time amantadine Allergy Rash Verified 05/01/22 17:11 cephalexin Allergy Rash Verified 05/01/22 17:11 erythromycin base Allergy Rash Verified 05/01/22 17:11 hydrochlorothiazide Allergy Rash Verified 05/01/22 17:11 IVP DYE Allergy Rash Uncoded 05/01/22 17:11 Family History Mother CAD (coronary artery disease) Father CAD (coronary artery disease) Brother CAD (coronary artery disease) Sister CAD (coronary artery disease) Surgical History H/O hernia repair History of colonoscopy History of hysteroscopy History of left heart catheterization (02/05/18) s/p left wrist ORIF Tubal ligation status Social History household members: none Smoking Status: Former smoker quit date: 06/29/76 alcohol intake: never substance use type: does not use caffeine: Yes (Occasionally) ROS ROS ED Constitutional Constitutional ED: Denies chills, fever(s), subjective, sweats or weight loss Eyes Eyes: Denies blurry vision, change in vision or diplopia ENT ENT ED: Denies ear pain, rhinorrhea or sore throat Cardiovascular Cardiovascular: Reports chest pain, palpitations and racing heartbeat; Denies orthopnea or paroxysmal nocturnal dyspnea Respiratory/Chest Respiratory/Chest: Reports dyspnea and dyspnea on exertion; Denies cough, orthopnea, paroxysmal nocturnal dyspnea or sputum Gastrointestinal Gastrointestinal: Reports nausea; Denies abdominal pain, constipation, diarrhea, melena or vomiting Genitourinary Genitourinary ED: Denies dysuria, hematuria or urinary frequency Musculoskeletal Musculoskeletal: Denies arthralgias, back pain, myalgias or neck pain Integumentary Denies Abrasions or rash Neurologic Neurologic: Denies headache(s), paresthesias or weakness Endocrine Endocrinology: Denies cold intolerance or heat intolerance Hematologic/Lymphatic Hematologic/Lymphatic: Reports easy bruising; Denies easy bleeding or lymphadenopathy EXAM Physical Exam Const Vital Signs: 05/01/22 16:58 05/01/22 18:50 05/01/22 18:38 Temperature 97.8 F Temperature Source Temporal Pulse Rate 110 H 138 H Pulse Rate [1] Respiratory Rate 18 Respiratory Rate [1] Blood Pressure 77/52 L 94/72 Blood Pressure [1] Blood Pressure Mean 60 Pulse Ox 98 92 Oxygen Delivery Method Room Air Room Air Room Air Oxygen Delivery Method [1] Oxygen Flow Rate (L/min) Oxygen Flow Rate (L/min) [1] 05/01/22 18:38 05/01/22 18:42 05/01/22 18:47 Temperature Temperature Source Pulse Rate Pulse Rate [1] 138 H Respiratory Rate Respiratory Rate [1] 16 Blood Pressure Blood Pressure [1] 94/72 Blood Pressure Mean Pulse Ox Oxygen Delivery Method Nasal Cannula Nasal Cannula Oxygen Delivery Method [1] Room Air Oxygen Flow Rate (L/min) 3 3 Oxygen Flow Rate (L/min) [1] 92 05/01/22 18:52 Temperature Temperature Source Pulse Rate Pulse Rate [1] Respiratory Rate Respiratory Rate [1] Blood Pressure Blood Pressure [1] Blood Pressure Mean Pulse Ox Oxygen Delivery Method Nasal Cannula Oxygen Delivery Method [1] Oxygen Flow Rate (L/min) 3 Oxygen Flow Rate (L/min) [1] Positive well nourished and well developed Constitutional Narrative: Patient appears ill. She is pale and appears fatigued. General Appearance ED: well developed and pallor; Negative for NAD HEENT Reports moist mucous membranes HEENT Narrative: Head is atraumatic normocephalic. Ears normal. Nares patent. Uvula midline. No erythema or exudate the posterior pharynx. No deviation tongue with protrusion. Eyes PERRL and EOMs intact bilaterally General Eye ED: Negative for pale conjunctiva or scleral icterus Neck no lymphadenopathy, supple and no JVD Chest Wall inspection of chest normal and palpation of chest normal Resp normal respiratory effort and No clear to auscultation bilaterally Auscultation: rales bilateral lower Cardio no murmurs Rate: tachycardic Rhythm: abnormal rhythm irregularly irregular GI normal to inspection, nondistended, normoactive bowel sounds, non-tender, non-distended and no masses; Negative for hepatosplenomegaly Back/Spine no CVA tenderness Cervical Spine: Negative for cervical spine tenderness Thoracic Spine / Upper Back: Negative for thoracic spinal tenderness Lumbar Spine / Lower Back: Negative for lumbar spinal tenderness Neuro oriented x3, CN's II-XII intact bilaterally and no sensory deficits noted Sensorium / Orientation: Negative for alert Motor Exam: strength 5/5 throughout Psych Mood & Affect: depressed Skin no rashes or lesions noted and no wounds General Skin Exam: pallor MDM MDM MDM Narrative Medical decision making narrative: Patient presents for evaluation for A. fib RVR. Basic metabolic panel was obtained to assess electrolytes, CO2 anion gap. Also determined patient has renal dysfunction since she was hypotensive. CBC to assess for anemia. Troponin and lactate to evaluate for cardiac ischemia and hypoperfusion since she was hypotensive. Chest x-ray to confirm suspicion for CHF. I was informed that there was blood work done at the aerial survey technician office will determine if those have been resulted and will discontinue any duplicate orders. I was informed at 1832 the patient's blood pressure is 59 systolic. Will sedate with etomidate for emergent cardioversion. Lab Data Attestation: I reviewed the patient's lab results. Lab results narrative: BMP was done from the aerial survey technician office and elevated at approximate 1200. She has slight increase in her creatinine from baseline with a GFR of 24. CBC is unchanged from prior. In light of the clinical findings of CHF elevated BNP will administer dose of furosemide especially since her repeat blood pressure is 116 systolic. Lactate is elevated at 3.9 which can consistent with poor perfusion when she was hypotensive troponins elevated 172 which raises concern for non-STEMI. Hospitalist was paged for admission. We will treat with aspirin for the elevated troponin. Labs: Laboratory Results - last 24 hr 05/01/22 05/01/22 19:20 19:20 Lactic Acid 3.9 H* Troponin I High Sens 172 H* Radiography Chest X-Ray - ED: 1 View and Read by ED Physician (Pending review of portable chest x-ray by me reveals pleural effusion on the right. There is evidence of cephalization and curly B-lines consistent with heart failure.) EKG Initial EKG: Attestation: I personally reviewed and interpreted this EKG as follows: Interpretation: Atrial Fibrillation (Ventricular rate 142. QRS duration 72 ms. QT duration 318 ms. Griffith is to the right. There is nonseptic ST-T wave changes due to the A. fib.) Follow-up EKG: Attestation: I personally reviewed and interpreted this EKG as follows: Interpretation: Sinus Bradycardia (This mechanism with a ventricular rate of 59. TN interval is 154 ms. Cures duration 72 ms. QT duration 424 ms. Griffith is normal. There are some noncervical changes noted.) Procedures Other Procedures Procedure(s): Verbal consent was obtained for emergent cardioversion since patient was hypotensive. She explained risk benefits. Patient received a total of 6 mg of etomidate. Once desired effect was achieved patient was successfully cardioverted with 150 J biphasic mode. Timeout was called. Patient did identify her self. She did note that she was going to receive medicine that would sedate her and goal was to shock her heart into rhythm. Total time of procedure 4 minutes. Patient converted to a sinus rhythm after cardioversion. She was sinus bradycardia with occasional PAC. Will obtain twelve-lead EKG. Critical Care Time Critical Care Time: Yes Critical care time (excluding procedures): 30-74 minutes (33 minutes), Including time spent: (History, physical, documentation, review of prior records), Discussing w/Patient &/or Family/Landscape Photographer, Discussing w/Consultants and Arranging Admission or Transfer Discharge Plan Dx/Rx/DC Orders Clinical Impression: Atrial fibrillation with rapid ventricular response, Acute hypotension, Acidosis, lactic, Lymphedema of both lower extremities Disposition Disposition: Acute Care Hospital [facility]
[2022-05-01] MEDS: Etomidate 20 MG/10 ML Vial 10 MG IV (18:38)
[2022-05-01] MEDS: Furosemide 40 MG/4 ML Vial IV (18:54)
--- NOTE | 2022-05-01 19:02 | RAD_ITS ---
EXAM: XR CHEST, 1 VIEW CLINICAL INDICATION: Bilateral rales, pedal edema TECHNIQUE: Frontal view of the chest. This report was created using [employer] report generation technology. COMPARISON: 04/24/2022. FINDINGS: LUNGS AND PLEURAL SPACES: Small bilateral pleural effusions. Underlying right lower lobe pneumonia may be present. No evidence of central vascular congestion. Upper lung zones are clear. No pneumothorax. HEART: Unremarkable. Cardiac silhouette not enlarged. MEDIASTINUM: Central airways and mediastinal contour are unremarkable. BONES/JOINTS: Unremarkable. No displaced fracture. No destructive or sclerotic lesions. Visualized joint spaces are unremarkable. SOFT TISSUES: Unremarkable. RAD/Chest 1 View (Portable) IMPRESSION: Small bilateral pleural effusions. Question right lower lobe pneumonia. Electronically Signed: Felicity Higgins MD at 20:30 EDT Reading Location ID and State: [id number] / Tel , Service support ,
--- NOTE | 2022-05-01 19:53 | EKG12_ITS ---
Test Reason : PALPITATIONS Blood Pressure : / mmHG Vent. Rate : 059 BPM Atrial Rate : 059 BPM P-R Int : 154 ms QRS Dur : 072 ms QT Int : 424 ms P-R-T Axes : 089 040 027 degrees QTc Int : 419 ms Sinus bradycardia Nonspecific ST and T wave abnormality Abnormal ECG Confirmed by TC FERNANDEZ, MALIK ([id number]), supervising film or videotape editor LUH ASHLEY ([id number]) on 05/05/2022 1:14:50 PM Referred By: MELISSA Confirmed By:MALIK MONTEZ MD
[2022-05-01 20:31] LABS: Lactic Acid 3.9 mmol/L (0.4-1.9); Troponin-I HS (w/2H Reflex) 172 pg/mL (3.0-54.0)
[2022-05-01] MEDS: Aspirin 81 MG TAB.CHEW 324 MG PO (20:45)
[2022-05-01 21:25] LABS: Reflex Troponin-HS? (from REC) Y
--- NOTE | 2022-05-01 21:28 | PCM.HP.STD ---
[facility] - [facility] General Date of Admission: 05/01/22 Date of Service: 05/01/22 Chief Complaint: Shortness of Breath HPI Narrative BERNADETTE ELIZABETH, is a 86 F who presented to department was coming hospital on 05/01/2022 with an chest heaviness, dyspnea with exertion, fatigue, decreased exercise tolerance, nausea, orthopnea, increasing pedal edema and rapid heart rate. She evidently was diagnosed with A. fib with RVR in January of this past year and was started on metoprolol and Xarelto at that time. She had an echocardiogram done at that January admission that showed an EF of 70% with no diastolic dysfunction, left atrial enlargement that was mild and mild tricuspid valve insufficiency. She came to the emergency department on 04/04/2022 with similar symptoms to the above and the case was discussed by the emergency department with cardiology. They recommended increasing her metoprolol to 50 mg p.o. twice daily and continue her Lasix as it was dosed 40 mg every other day. 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 She again was found to be in A. fib with RVR and subsequently had a systolic pressure of 59. She was sedated with etomidate and emergent cardioversion was performed. She converted back into normal sinus rhythm with much improved blood pressure and heart rate was back into the 60s. Her temperature on arrival was 97.8, initial heart rate was 110, blood pressure was 77/52, respiratory rate was 18, oxygen saturation was 97% on room air however she periodically desatted a and required some supplemental oxygen until after she was cardioverted. After cardioversion she returned to 98% on room air. She had a D-dimer earlier today which was overall unremarkable. Her chemistry panel shows normal electrolytes with worsening renal function with a serum creatinine of 2.09. It appears her baseline serum creatinine is between 1.6 and 1.8. Lactic acid was obtained and was found to be 3.9. Her magnesium level was 2. Her initial troponin was 172 prior to cardioversion and subsequently went up to 273 after her cardioversion. Her BNP was 1194.3. Her chest x-ray shows vascular congestion with small bilateral effusions right greater than left. Her EKG initially was A. fib with RVR but after cardioversion was normal sinus rhythm without any ST-T wave changes and normal intervals. Thyroid studies were obtained prior to admission and her TSH was found to be normal. Her free T4 was slightly elevated at 1.49 and her free T3 was 2.2. This is consistent with euthyroid sick syndrome. In the emergency department as noted above she was treated with cardioversion and was given Lasix x1 dose. [facility] Medical History (Updated 05/01/22 @ 22:[address] Akosua Sewell, DO) Acquired keratoderma Anemia Atrial fibrillation, new onset Essential hypertension Glaucoma Hemorrhage of anus and rectum Hernia HLD (hyperlipidemia) Near syncope Osteoporosis Palpitations Positive occult stool blood test Stage 3b chronic kidney disease (CKD) Sweating Syncope Umbilical hernia Home Medications atorvastatin 20 mg tablet 20 mg PO QODAY Cholesterol 12/06/16 [History Last Taken 02/19/22] latanoprost 0.005 % eye drops 1 drp EACHEYE QHS eye drops 12/06/16 [History Last Taken 02/20/22] timolol maleate 0.5 % eye drops 1 drp RIGHT EYE BID eye drops 12/06/16 [History Last Taken 02/20/22] alendronate 70 mg tablet 70 mg PO Q7D@0700 Bones 09/12/19 [History Last Taken 02/16/22] benzonatate 100 mg capsule 100 mg PO TID PRN Cough 03/25/22 [History Last Taken Unknown] brimonidine 0.15 % eye drops 1 drp ophthalmic (eye) BID Check with primary doctor 03/25/22 [History Last Taken Unknown] levothyroxine 25 mcg tablet 25 mcg PO DAILY Check with primary doctor 03/25/22 [History Last Taken Unknown] omeprazole 40 mg capsule,delayed release 40 mg PO DAILY gerd 03/25/22 [History Last Taken Unknown] furosemide 20 mg tablet 40 mg PO Q OTHER DAY PRN water pill 03/28/22 [History Last Taken Unknown] loperamide 2 mg capsule (Imodium A-D) 2 mg PO Q6H PRN loose stool #20 caps 04/04/22 [Rx Last Taken Unknown] ondansetron 4 mg disintegrating tablet 4 mg PO Q6H PRN nausea and vomiting #20 tabs 04/04/22 [Rx Last Taken Unknown] potassium chloride 10 mEq tablet,extended release 10 meq PO DAILY supplement #90 tabs 04/18/22 [Rx Last Taken Unknown] losartan 25 mg tablet 50 mg PO DAILY blood pressure 05/01/22 [History Last Taken Unknown] metoprolol succinate 50 mg tablet,extended release 24 hr 50 mg PO BID blood pressure 05/01/22 [History Last Taken Unknown] rivaroxaban 15 mg tablet (Xarelto) 15 mg PO DAILY blood thinner 05/01/22 [History Last Taken Unknown] Allergy/AdvReac Type Severity Reaction Status Date / Time amantadine Allergy Rash Verified 05/01/22 17:11 cephalexin Allergy Rash Verified 05/01/22 17:11 erythromycin base Allergy Rash Verified 05/01/22 17:11 hydrochlorothiazide Allergy Rash Verified 05/01/22 17:11 IVP DYE Allergy Rash Uncoded 05/01/22 17:11 Family History Mother CAD (coronary artery disease) Father CAD (coronary artery disease) Brother CAD (coronary artery disease) Sister CAD (coronary artery disease) Surgical History H/O hernia repair History of colonoscopy History of hysteroscopy History of left heart catheterization (02/05/18) s/p left wrist ORIF Tubal ligation status Social History household members: none housing: apartment number of children: 4 Smoking Status: Former smoker quit date: 06/29/76 alcohol intake: never substance use type: does not use caffeine: Yes (Occasionally) ROS Constitutional Constitutional: Reports change in weight, fatigue and weakness; Denies anorexia, chills, fever(s), malaise, night sweats or other Eyes Eyes: Denies blurry vision, change in eye color, change in vision, discharge from eye(s), double vision, erythema, eye pain, loss of vision or other ENT HEENT: Denies abnormal hearing, dysphagia, ear pain, epistaxis, headache(s), hearing loss, nasal congestion, nasal discharge, post nasal drip, sinus pressure, sore throat or other Cardiovascular Cardiovascular: Reports chest pain, dyspnea on exertion, edema, orthopnea, palpitations and rapid heart rate; Denies claudication, lightheadedness, paroxysmal nocturnal dyspnea, syncope or other Respiratory/Chest Respiratory/Chest: Reports cough, shortness of breath at rest and shortness of breath with exertion; Denies dyspnea, excessive phlegm production, hemoptysis, productive cough, wheezing or other Gastrointestinal Gastrointestinal: Denies abdominal pain, coffee ground emesis, constipation, diarrhea, dyspepsia, hematemesis, hematochezia, loose stools, melena, nausea, vomiting or other Genitourinary Genitourinary: Denies burning urination, difficulty urinating, dysuria, hematuria, nocturia, urinary frequency, urinary hesitancy, urinary incontinence, urinary urgency or other Musculoskeletal Musculoskeletal: Denies arthralgias, back pain, joint pain, joint stiffness, joint swelling, myalgias, neck pain or other Neurologic Neurologic: Denies abnormal gait, abnormal speech, confusion, disequilibrium, dizziness, focal weakness, headache(s), numbness, paresthesias, seizure-like activity, seizures, syncope, tingling, tremor(s) or other Psychiatric Psychiatric: Denies anxiety, depression, homicidal ideation, suicidal ideation or other Endocrine Endocrinology: Denies change in body appearance, cold intolerance, excessive sweating, heat intolerance, polydipsia, polyuria or other Hematologic/Lymphatic Hematologic/Lymphatic: Denies anemia, easy bleeding, easy bruising, lymphadenopathy or other Allergic/Immunologic Allergic/Immunologic: Denies rhinitis, hives, eczemia, asthma or other Vital Signs Vital Signs Vital Signs: 05/01/22 16:58 05/01/22 18:50 05/01/22 18:38 Temperature 97.8 F Temperature Source Temporal Pulse Rate 110 H 138 H Pulse Rate [1] Respiratory Rate 18 Respiratory Rate [1] Blood Pressure 77/52 L 94/72 Blood Pressure [1] Blood Pressure Mean 60 Pulse Ox 98 92 Oxygen Delivery Method Room Air Room Air Room Air Oxygen Delivery Method [1] Oxygen Flow Rate (L/min) Oxygen Flow Rate (L/min) [1] 05/01/22 18:38 05/01/22 18:42 05/01/22 18:47 Temperature Temperature Source Pulse Rate Pulse Rate [1] 138 H Respiratory Rate Respiratory Rate [1] 16 Blood Pressure Blood Pressure [1] 94/72 Blood Pressure Mean Pulse Ox Oxygen Delivery Method Nasal Cannula Nasal Cannula Oxygen Delivery Method [1] Room Air Oxygen Flow Rate (L/min) 3 3 Oxygen Flow Rate (L/min) [1] 92 05/01/22 18:52 05/01/22 21:17 05/01/22 21:17 Temperature 98.1 F Temperature Source Temporal Pulse Rate 58 L 58 L Pulse Rate [1] Respiratory Rate 16 16 Respiratory Rate [1] Blood Pressure 140/86 H 140/86 H Blood Pressure [1] Blood Pressure Mean 104 104 Pulse Ox 98 98 Oxygen Delivery Method Nasal Cannula Room Air Room Air Oxygen Delivery Method [1] Oxygen Flow Rate (L/min) 3 Oxygen Flow Rate (L/min) [1] Weight Weight: 60.328 kg Body Mass Index (BMI) 24.3 Physical Exam Const alert, oriented x3, no apparent distress, healthy appearing and well nourished Constitutional Narrative: Elderly white female sitting up in bed, appears comfortable at this time and currently on room air General Appearance: cooperative HEENT normocephalic, head/scalp atraumatic and moist oral mucous membranes; Negative for hearing grossly normal bilaterally HEENT Narrative: Dentition is fair for age, Mallampati is 2, no thrush, mild hearing loss Eyes PERRL, EOMs intact bilaterally and conjunctivae normal Eyes Narrative: No scleral icterus Neck no lymphadenopathy, supple and no carotid bruits Neck Narrative: Acute midline, no thyroid enlargement Resp normal respiratory effort, no retractions, no use of accessory muscles and No clear to auscultation bilaterally Resp Narrative: Diminished at bilateral bases with scattered crackles inferiorly, no signs of respiratory extremis Auscultation: crackles; Negative for rhonchi or wheezes Cardio regular rate, regular rhythm, S1 normal heart sound, S2 normal heart sound, no murmurs, no rub, no gallops and no clicks GI normal to inspection, nondistended, normoactive bowel sounds, soft to palpation and non-tender Extremity Extremity Narrative: 1+ pitting edema bilateral lower extremities, no cyanosis or clubbing Skin no rashes or lesions noted, no wounds, skin turgor normal, no jaundice, no petechiae and no mottling Neuro oriented x3, CN's II-XII intact bilaterally, moves all extremities and no focal motor deficits Neuro Narrative: Moderate generalized weakness Speech: speech normal Psych affect normal Psych Narrative: Very pleasant and appropriately interactive Results Lab / Micro Data Labs: Laboratory Results - last 24 hr 11/03/22 19:20: Lactic Acid 3.9 H* 05/01/22 19:20: Troponin I High Sens 172 H* Radiology Impression Chest X-Ray 05/01/22 19:02 IMPRESSION: Small bilateral pleural effusions. Question right lower lobe pneumonia. Electronically Signed: Felicity Higgins MD at 20:30 EDT Reading Location ID and State: [id number] / Tel , Service support , Assessment & Plan Assessment/Plan (1) Atrial fibrillation with rapid ventricular response: (2) Acute hypotension: (3) Acidosis, lactic: (4) Elevated troponin: (5) Acute heart failure with preserved ejection fraction (HFpEF): PLAN: Plan A. fib with RVR/acute hypotension -Status post cardioversion in the emergency department -Now in normal sinus rhythm -We will continue home metoprolol -Case was discussed with Dr. Frey as I do anticipate she would benefit from maintaining normal sinus rhythm as per discussion with her and her daughter in the emergency department she seems to be fairly symptomatic from her atrial fibrillation -We will start amiodarone drip with bolus to facilitate maintenance of normal sinus rhythm -Continue home Xarelto -Suspect this is the etiology of her initial troponin elevation and her acute heart failure -Cardiology consult placed--> per discussion with Dr. Frey he will see her tomorrow on 05/02/2022 Acute on chronic decompensated HFpEF -Patient had recent echo done in January that showed an EF of 70% no significant valvular abnormalities with mild to moderate left atrial enlargement and no evidence of diastolic dysfunction -Suspect etiology for acute decompensated heart failure is related to her A. fib and loss of atrial kick -We will start Lasix drip -Continue home metoprolol -Low-salt diet -Daily weights -Accurate I's and O's -Fluid restriction to 1500 cc -Lower extremity Dave bandages Troponin elevation -Likely related to A. fib with RVR and cardioversion -May need stress test once heart failure is compensated -We will await cardiology input Hyperlipidemia -Continue home atorvastatin Hypertension -Continue home metoprolol and losartan -Monitor BP Glaucoma -Continue home eyedrop Hypothyroidism -Continue home levothyroxine -TSH was within prior to presentation next next line osteoporosis -Restart alendronate at discharge DVT prophylaxis -Patient is fully anticoagulated with Xarelto CODE STATUS -Full code as per discussion in the emergency department prior to admission with daughter at the bedside Charges/Coding Visit Charges Inpatient E&M: 79847 Init Hosp L3
[2022-05-01 22:05] LABS: Troponin-I HS 273 pg/mL (3.0-54.0)
[2022-05-01] MEDS: 0.9% Saline Lock 10 ML Syringe IV (23:01)
[2022-05-01] MEDS: BRIMONIDINE 0.15% 5 ML Bottle 1 DRP OPHTHALMIC (23:13)
[2022-05-01] MEDS: Timolol 0.5% 5ML OPTH.BTL 1 DRP RIGHT EYE (23:14)
[2022-05-01] MEDS: Amiodarone 360 MG in Dextrose 5% Viaflo Bag 192.8 ML 33.3 MG CONT INF (23:15)
[2022-05-01] MEDS: Latanoprost 0.005% 1 Bottle 1 DRP EACH EYE (23:15)
[2022-05-01] MEDS: Furosemide 500 MG in Empty Viaflex 50 mL 1 EACH CONT INF (23:17)
[2022-05-01 23:25] LABS: Reflex Lactate? Y
[2022-05-01] MEDS: Rivaroxaban 15 MG Tablet PO (23:25)
[2022-05-02] VITALS (21 sets, daily range): BP systolic 106–145; BP diastolic 49–72; PULSE 39–66; RESP 16–22; TEMP 35.9–36.7; O2SAT 96–100
[2022-05-02] MEDS: Benzonatate 100 MG Capsule PO (00:14)
[2022-05-02 01:33] LABS: Lactic Acid 1.4 mmol/L (0.4-1.9)
[2022-05-02 01:40] LABS: Troponin-I HS 563 pg/mL (3.0-54.0)
[2022-05-02] MEDS: Amiodarone 360 MG in Dextrose 5% Viaflo Bag 192.8 ML 16.7 MG CONT INF (04:33)
[2022-05-02 06:01] LABS: Absolute Neutrophil Count 7.4 X10^3/uL (2.0-7.7); Basophil# 0.03 X10^3/uL; Basophil% 0.3 % (0-1); Eosinophil# 0.05 X10^3/uL; Eosinophils% 0.5 % (0-5); Hematocrit 35.4 % (37-47); Hemoglobin 11.7 g/dL (12.0-15.0); Lymphocyte % 19.8 % (19-41); Mean Corp Hgb Conc 33.1 g/dL (32-36); Mean Corpuscular Hgb 32.2 pg (27.0-32.0); Mean Corpuscular Volume 97.5 fL (81-99); Monocyte# 0.57 X10^3/uL; Monocyte% 5.6 % (0-10); NRBC Flagged by Analyzer 0 % (0-5); Neutrophil % 73.4 % (47-70); Platelet Count 164 K/mm3 (150-450); RBC Distribution Width CV 13.9 % (11.6-14.6); RBC Distribution Width SD 49.1 fl (35.1-43.9); Red Blood Count 3.63 M/mm3 (4.2-5.4); White Blood Count 10.1 K/mm3 (4.4-11.0)
[2022-05-02] MEDS: Levothyroxine 25 MCG TABLET PO (06:07)
--- NOTE | 2022-05-02 07:46 | PCM.PN.HOSP ---
Subjective Subjective Patient is an 86-year-old lady who presented with multiple complaints including chest heaviness dyspnea with exertion fatigue as well as rapid heart rate. An assessment of acute congestive heart failure as well as A. fib with RVR made admitted to monitored bed for subsequent management Objective Data Objective Data Vital Signs: Vital Signs Temp Pulse Resp BP Pulse Ox O2 Del Method O2 Flow Rate 96.6 F L 48 L 19 H 116/55 L 99 Room Air 3 05/02/22 06:10 05/02/22 07:05 05/02/22 06:10 05/02/22 06:10 05/02/22 07:01 05/02/22 07:01 05/01/22 18:52 Oxygen Flow Rate (L/min) [1] 92 Oxygen Flow Rate (L/min) 3 Oxygen Delivery Method [1] Room Air Oxygen Delivery Method Room Air Weight: 59.6 kg Body Mass Index (BMI) 23.6 Intake & Output: Intake and Output for Last 24 Hours 04/30/22 05/01/22 05/02/22 23:59 23:59 23:59 Intake Total 119.66 / 367.99 684.57 / 684.57 Output Total 270 / 270 Balance 119.66 / 247.99 414.57 / 414.57 Lab / Micro Data Result Diagrams: 05/02/22 05:15 05/02/22 05:15 Labs: Laboratory Results - last 24 hr 05/01/22 19:20: Lactic Acid 3.9 H* 05/01/22 19:20: Troponin I High Sens 172 H* 05/01/22 21:35: Troponin I High Sens 273 H* 05/02/22 01:02: Troponin I High Sens 563 H* 05/02/22 01:02: Lactic Acid 1.4 05/02/22 05:15: WBC 10.1, RBC 3.63 L, Hgb 11.7 L, Hct 35.4 L, MCV 97.5, MCH 32.2 H, MCHC 33.1 D, RDW Std Deviation 49.1 H, RDW Coeff of Broderick 13.9, Plt Count 164, MPV 11.0, Immature Gran % (Auto) 0.400, Neut % (Auto) 73.4 H, Lymph % (Auto) 19.8, [place] % (Auto) 5.6, Eos % (Auto) 0.5, Baso % (Auto) 0.3, Absolute Neuts (auto) 7.4, Absolute Lymphs (auto) 2.00, Nucleated RBC % 0 Radiography Diagnostic Testing: Radiology Impression Chest X-Ray 05/01/22 19:02 IMPRESSION: Small bilateral pleural effusions. Question right lower lobe pneumonia. Electronically Signed: Felicity Higgins MD at 20:30 EDT , Physical Exam Narrative GENERAL: cooperative HEENT: Atraumatic; normocephalic EYES; Anicteric, Normal Conjunctiva NECK; supple, normal thyroid, RESPIRATORY: Diminished to auscultation CARDIOVASCULAR: Regular S1 S2, GI: soft, normoactive bowel sounds, : No Renal angle tenderness; EXTREMITIES: No edema, no clubbing, MUSCULOSKELETAL: no muscle wasting NEURO: Awake; no lateralizing signs. SKIN: No Rash PSYCH; Flat affect Assessment & Plan Assessment/Plan (1) Acute heart failure with preserved ejection fraction (HFpEF): PLAN: Plan Patient is an 86-year-old lady who presented with multiple complaints including chest heaviness dyspnea with exertion fatigue as well as rapid heart rate. An assessment of acute congestive heart failure as well as A. fib with RVR made admitted to monitored bed for subsequent management 1. Paroxysmal A. fib with RVR ? Patient was reported to be hypotensive in the ED underwent cardioversion in the emergency department prior to patient being admitted. Patient converted back to sinus rhythm admitted to the intensive care unit for subsequent management. Patient was started on amiodarone drip apparently to maintain sinus rhythm on Xarelto did continue and consultation placed to cardiology 2. Acute on chronic congestive heart failure with preserved ejection fraction ? Echo done in January demonstrated EF of 70%. Placed on a monitored bed managed with strict input and output, low-sodium diet, daily weight fluid restriction as well as IV diuretics 3. Elevated troponin ? Secondary to demand ischemia from #1 and 2 monitoring with serial cardiac enzymes 4. Dyslipidemia -Patient is on statin therapy, continued at home dose 5. Hypertension - Blood pressure controlled, home medications continued with dose adjustment as needed 6. Hypothyroidism - Patient is on levothyroxine home dose continued 7. Glaucoma -Did continue patient antiglaucoma medications (eyedrops) 8. DVT prophylaxis ? Patient is on Xarelto Charges/Coding Visit Charges Inpatient E&M: 68624 Subs Hosp L2
--- NOTE | 2022-05-02 08:53 | CON.PCM.CA_ITS ---
Assessment & Plan Assessment/Plan (1) Abnormal cardiac enzyme level: PLAN: The patient does have abnormal cardiac enzyme levels. It appears they have been somewhat chronically elevated. It appears the consideration has been given that these elevated enzyme levels are related to her history of atrial dysrhythmias with rapid ventricular response. At the moment her current change in her cardiac enzyme level may be related to her atrial dysrhythmia with rapid ventricular response and her synchronized biphasic DC cardioversion. Her recent noninvasive valuation demonstrated overall preserved left ventricular wall motion and systolic function/LVEF. In the past she has been found to have cardiac catheterization results with angiographically normal-appearing coronary arteries. At the present time she would continue medical management. Depending upon her clinical course she may or may not need additional evaluation in the future from a noninvasive or invasive standpoint to reassess her coronary physiology/anatomy. However, as she is recently cardioverted it would be reasonable not to interrupt her anticoagulation therapy for minimum of 4 to 6 weeks, if she remains in sinus rhythm, to proceed with any other invasive studies barring an urgent/emergent event. (2) Atrial fibrillation with rapid ventricular response: PLAN: Her atrial fibrillation may have been the etiology for her ongoing symptom s and concerns. At the present time she is now back, status post synchronized biphasic DC cardioversion, in sinus rhythm/sinus bradycardia with underlying premature ectopic complexes. Her rate limiting medications will be adjusted. She will continue anticoagulant therapy. If over time she demonstrates evidence of both bradycardia and tachycardia compatible with a sick sinus syndrome then she may also need to be considered for permanent pacemaker support. (3) Acute heart failure with preserved ejection fraction (HFpEF): PLAN: She did have findings compatible with acute CHF as demonstrated by her history, exam, and her objective findings with laboratory studies and radiologic findings demonstrating bilateral pleural effusions (right greater than left). At the present time hopefully regaining sinus rhythm will be helpful to improve this overall condition. In the meantime she will continue medical therapy with diuretic therapy. Her other medications will be optimized as best as possible. (4) HLD (hyperlipidemia): QUALIFIERS: Hyperlipidemia type: unspecified Qualified Code(s): E78.5 - Hyperlipidemia, unspecified PLAN: She will continue risk factor evaluation care as deemed appropriate. (5) Essential hypertension: PLAN: Her blood pressure does need to be monitored with adjustment of medications taking into consideration her overall status and her renal insufficiency. (6) Renal insufficiency: PLAN: The patient does appear to have evidence of chronic renal insufficiency. This does need to be taken into consideration with her clinical course and her medication adjustments. Addt'l Comments The patient's case has been discussed and reviewed with the patient and previously with Dr. Sewell of the [facility] staff. This note was generated using a voice recognition system and there may be incorrect words, spelling or punctuation that were not noted when reviewing the office note prior to saving. HPI Consult Data Date of Consult: 05/02/22 HPI Narrative HPI Narrative: BERNADETTE ELIZABETH, is a 86 year old white female who presents for vascular consultation based upon concerns of shortness of breath, fatigue, lower extremity weakness, flushing sensations , and atrial fibrillation with rapid ventricular response superimposed upon a history of atrial fibrillation, syncope, hyperlipidemia, and hypertension. She has been previously evaluated at [facility] in cardiovascular consultation and most recently evaluated in the outpatient setting yesterday by the [facility] staff. Her case have been reviewed, her medications were being adjusted, she was tentatively planned for upcoming synchronized biphasic DC cardioversion as well as potentially additional noninvasive cardiovascular evaluation as deemed appropriate. However, based upon her ongoing symptoms, she was subsequently brought to the emergency department for additional evaluation and care. According to the [facility] staff she underwent emergency department evaluation. Based upon her concerning symptoms, concerns of elevated heart rate, concerns of lower blood pressure, noting that she had been on anticoagulant therapy, she subsequently underwent synchronized biphasic DC cardioversion by the emergency department staff. She returned to sinus rhythm. She was subsequently placed on additional medical therapy with respect to her atrial dysrhythmia with IV amiodarone and concerns of CHF with IV furosemide continuous infusion. She was placed in the PCU for additional evaluation and care. Since being in the PCU she states she does feel better overall. She is not complaining of symptoms of classic angina pectoris. She states her breathing has improved. She has been resting comfortably without O2 therapy at this time. She does note that she has had lower extremity peripheral pitting edema. Her lower extremities are currently in an Dave wrap. There has been no report of recurrent near syncope or syncope. She has been noted on the cardiac rhythm monitor to have sinus bradycardia. There is been occasional premature ectopic complexes. Her cardiac enzymes have been somewhat chronically elevated dating back to January of this year. They did increase during this hospitalization which has been thought related to her atrial dysrhythmia and her synchronized biphasic DC cardioversion. She has undergone recent noninvasive valuation with a transthoracic echocardiogram performed on 02-22-2022. The results are noted below. She has had previous noninvasive and invasive valuation with pharmacologic stress nuclear imaging studies performed on 04-14-2017 and a diagnostic cardiac catheterization performed on 02-05-2018. At that time she normal LV systolic function with a reported LVEF of 65% and angiographically normal-appearing coronary arteries. She had a Holter monitor performed in September 2020. At that time she was noted to be in sinus rhythm with PACs and rare isolated PVCs. There was an atrial run reported lasting approximately 8 beats. [facility] Medical History (Updated 05/02/22 @ 09:[address] Brigido Frey MD) Acquired keratoderma Anemia Atrial fibrillation, new onset Essential hypertension Glaucoma Hemorrhage of anus and rectum Hernia HLD (hyperlipidemia) Near syncope Osteoporosis Palpitations Positive occult stool blood test Stage 3b chronic kidney disease (CKD) Sweating Syncope Umbilical hernia Home Medications atorvastatin 20 mg tablet 20 mg PO QODAY Cholesterol 12/06/16 [History Last Taken 02/19/22] latanoprost 0.005 % eye drops 1 drp EACHEYE QHS eye drops 12/06/16 [History Last Taken 02/20/22] timolol maleate 0.5 % eye drops 1 drp RIGHT EYE BID eye drops 12/06/16 [History Last Taken 02/20/22] alendronate 70 mg tablet 70 mg PO Q7D@0700 Bones 09/12/19 [History Last Taken 02/16/22] benzonatate 100 mg capsule 100 mg PO TID PRN Cough 03/25/22 [History Last Taken Unknown] brimonidine 0.15 % eye drops 1 drp ophthalmic (eye) BID Check with primary doctor 03/25/22 [History Last Taken Unknown] levothyroxine 25 mcg tablet 25 mcg PO DAILY Check with primary doctor 03/25/22 [History Last Taken Unknown] omeprazole 40 mg capsule,delayed release 40 mg PO DAILY gerd 03/25/22 [History Last Taken Unknown] furosemide 20 mg tablet 40 mg PO Q OTHER DAY PRN water pill 03/28/22 [History Last Taken Unknown] loperamide 2 mg capsule (Imodium A-D) 2 mg PO Q6H PRN loose stool #20 caps 04/04/22 [Rx Last Taken Unknown] ondansetron 4 mg disintegrating tablet 4 mg PO Q6H PRN nausea and vomiting #20 tabs 04/04/22 [Rx Last Taken Unknown] potassium chloride 10 mEq tablet,extended release 10 meq PO DAILY supplement #90 tabs 04/18/22 [Rx Last Taken Unknown] losartan 25 mg tablet 50 mg PO DAILY blood pressure 05/01/22 [History Last Taken Unknown] metoprolol succinate 50 mg tablet,extended release 24 hr 50 mg PO BID blood pressure 05/01/22 [History Last Taken Unknown] rivaroxaban 15 mg tablet (Xarelto) 15 mg PO DINNER blood thinner 05/01/22 [History Last Taken Unknown] Allergy/AdvReac Type Severity Reaction Status Date / Time amantadine Allergy Rash Verified 05/01/22 17:11 cephalexin Allergy Rash Verified 05/01/22 17:11 erythromycin base Allergy Rash Verified 05/01/22 17:11 hydrochlorothiazide Allergy Rash Verified 05/01/22 17:11 IVP DYE Allergy Rash Uncoded 05/01/22 17:11 Family History Mother CAD (coronary artery disease) Father CAD (coronary artery disease) Brother CAD (coronary artery disease) Sister CAD (coronary artery disease) Surgical History H/O hernia repair History of colonoscopy History of hysteroscopy History of left heart catheterization (02/05/18) s/p left wrist ORIF Tubal ligation status Social History (Updated 05/01/22 @ 22:16 by [facility] [employer]) household members: none housing: apartment number of children: 4 Smoking Status: Former smoker quit date: 06/29/76 alcohol intake: never substance use type: does not use caffeine: Yes (Occasionally) ROS Constitutional Constitutional: Reports fatigue and weakness Eyes Eyes: Reports as per HPI ENT HEENT: Reports as per HPI Cardiovascular Cardiovascular: Reports dyspnea, edema, fatigue and weakness in extremities Respiratory/Chest Respiratory/Chest: Reports dyspnea Gastrointestinal Gastrointestinal: Reports as per HPI Genitourinary Genitourinary: Reports as per HPI Musculoskeletal Musculoskeletal: Reports as per HPI Integumentary Integumentary: Reports as per HPI Neurologic Neurologic: Reports as per HPI Psychiatric Psychiatric: Reports as per HPI Physical Exam Const alert, oriented x3 and no apparent distress Orientation / Consciousness: awake HEENT normocephalic, head/scalp atraumatic and hearing grossly normal bilaterally Eyes PERRL, EOMs intact bilaterally, conjunctivae normal and no scleral icterus Neck full ROM, supple and no JVD Carotids: normal carotid upstroke Resp Auscultation: diminished lung sounds bilateral lower (Right greater than left) Cardio Rate: bradycardia Rhythm: abnormal rhythm ectopic beats Heart Sounds: S1 normal and S2 normal GI normal to inspection, nondistended, normoactive bowel sounds Extremity Extremity Narrative: Bilateral lower extremity Dave wraps Skin no rashes or lesions noted Psych mental status grossly normal Risk Stratification Risk Stratification Applicable: Yes Age >/= 65: Yes >/= 3 CAD Risk Factors (HTN, HLD, DM, family hx of CAD, or current smoker): Yes Aspirin Use in the Past 7 Days: No Severe Angina (>/= episodes in 24 hours): No EKG ST Changes >/= 0.5mm: Yes Positive Cardiac Marker: Yes LANA Risk Stratification Score: 4 LANA % Risk: 20% Risk Procedure Criteria Type of Procedure Procedure Type: Elective Elective Risks - COVID COVID Risk Discussion: The surgeon/proceduralist and patient have discussed in detail the risk of exposure to and/or potential harm posed by the COVID-19 virus with having a surgery/procedure at this time versus the risk of delaying the surgery/procedure. It is not possible to know either the risk of delaying the surgery or procedure or chance of getting an infection with perfect accuracy, but a joint decision was made between the patient and the surgeon/proceduralist to proceed at this time with the scheduled surgery/procedure as indicated on the consent form. Objective Data Vital Signs: Vital Signs Temp Pulse Resp BP Pulse Ox O2 Del Method O2 Flow Rate 96.6 F L 54 L 17 115/53 L 96 Room Air 3 05/02/22 06:10 05/02/22 08:07 05/02/22 08:07 05/02/22 08:07 05/02/22 08:07 05/02/22 08:07 05/01/22 18:52 Oxygen Flow Rate (L/min) [1] 92 Oxygen Flow Rate (L/min) 3 Oxygen Delivery Method [1] Room Air Oxygen Delivery Method Room Air Weight: 131 lb 6.328 oz Body Mass Index (BMI) 23.6 Intake & Output: Intake and Output for Last 24 Hours 04/30/22 05/01/22 05/02/22 23:59 23:59 23:59 Intake Total 119.66 / 367.99 725.45 / 725.45 Output Total 270 / 270 Balance 119.66 / 247.99 455.45 / 455.45 Lab / Micro Data Result Diagrams: 05/02/22 05:15 05/02/22 05:15 Labs: Laboratory Results - last 24 hr 05/01/22 19:20: Lactic Acid 3.9 H* 05/01/22 19:20: Troponin I High Sens 172 H* 05/01/22 21:35: Troponin I High Sens 273 H* 05/02/22 01:02: Troponin I High Sens 563 H* 05/02/22 01:02: Lactic Acid 1.4 05/02/22 05:15: WBC 10.1, RBC 3.63 L, Hgb 11.7 L, Hct 35.4 L, MCV 97.5, MCH 32.2 H, MCHC 33.1 D, RDW Std Deviation 49.1 H, RDW Coeff of Broderick 13.9, Plt Count 164, MPV 11.0, Immature Gran % (Auto) 0.400, Neut % (Auto) 73.4 H, Lymph % (Auto) 19.8, Maury % (Auto) 5.6, Eos % (Auto) 0.5, Baso % (Auto) 0.3, Absolute Neuts (auto) 7.4, Absolute Lymphs (auto) 2.00, Nucleated RBC % 0 Cardiology Labs/Tests 05/01/22 19:20: Lactic Acid 3.9 H* 05/02/22 01:02: Lactic Acid 1.4 05/02/22 05:15: WBC 10.1, RBC 3.63 L, Hgb 11.7 L, Hct 35.4 L, MCV 97.5, MCH 32.2 H, MCHC 33.1 D, Plt Count 164, MPV 11.0, Immature Gran % (Auto) 0.400, Neut % (Auto) 73.4 H, Lymph % (Auto) 19.8, Maury % (Auto) 5.6, Eos % (Auto) 0.5, Baso % (Auto) 0.3, Absolute Neuts (auto) 7.4, Nucleated RBC % 0 Rhythm: Sinus bradycardia; premature ectopic complexes EKG: Atrial fibrillation; poor R wave progression; nonspecific ST/T wave abnormality Transthoracic echocardiogram: 02-04-2018 Interpretation Summary The estimated ejection fraction is 65 %. Normal diastology for age. Trivial tricuspid valve insufficiency. Right ventricular systolic pressure estimated to be 33 mmHg. Compared to echo report dated 04/13/2017, LV function has remained the same, but RVSP has decreased from 60to 33 mm Hg. Echocardiogram from 02/22/2022: Interpretation Summary The estimated ejection fraction is 70 %. No evidence for diastolic dysfunction. The left atrium is mildly enlarged. Mild tricuspid valve insufficiency. Trivial pericardial effusion. Stress Test Report: Date: 04/14/2017 Procedure: Pharmacologic stress nuclear imaging study Indications: Chest pain Consent: Per patient Procedure: The patient underwent pharmacologic (Regadenoson) evaluation with a peak heart rate of 85 bpm (60% predicted maximal heart rate) with a peak blood pressure 148/70 mmHg. The baseline ECG demonstrated normal sinus rhythm.? The peak pharmacologic ECG demonstrated no obvious ECG changes. There was a rare PAC during infusion and recovery. There was no report of chest discomfort during pharmacologic infusion or recovery. The examination was discontinued secondary to completion of protocol. Impression: 1.? Pharmacologic (Regadenoson) relation 2.? Peak pharmacologic ECG with no obvious ECG changes 3.? Rare PAC during infusion and recovery 4.? Nuclear images pending Myocardial perfusion imaging study: Technique: The patient was injected with 11.6 mCi of technetium 99m Cardiolite and subsequently rest SPECT Cardiolite nuclear imaging was obtained in the horizontal long, vertical long, and short axis views. The patient underwent pharmacologic (Regadenoson) evaluation with a peak heart rate of 85 bpm (60% predicted maximal heart rate) with a peak blood pressure 148/70 mmHg.? The patient was injected with 33.8 mCi of technetium 99m Cardiolite and subsequently stress SPECT Cardiolite nuclear imaging was obtained in the horizontal long, vertical long, and short axis views.? A gated Cardiolite study at peak stress was obtained. Interpretation: Rest and stress SPECT Cardiolite nuclear imaging status post realignment, normalization, and attenuation correction, demonstrates relative uniform tracer uptake and myocardial perfusion appearing within normal limits.? There is end systolic thickening and brightening.? The gated Cardiolite study demonstrates myocardial thickening and inward wall motion.? The reported LVEF is 86%. Impression: 1.? Rest and stress SPECT Cardiolite nuclear imaging demonstrate relative uniform tracer uptake and myocardial perfusion appearing within normal limits. 2.? The gated Cardiolite study reports an LVEF of 86%. Cardiac catheterization: 02-05-2018 CONCLUSIONS Normal coronary arteries Normal LV size, wall motion,and systolic function Normal Left Ventricular systolic function RECOMMENDATIONS Management as per referring [employer] start imdur 30 mg daily. Successful Mynx closure device for severe HTN. DESCRIPTION OF? PROCEDURE The patient arrived to the procedure lab. The risks and benefits of the procedure as well as a full description of our services here and current unavailability of surgical backup were fully explained to the patient and/or their significant other prior to the catheterization. The Timeout was completed, verifying the correct patient and procedure. The patient's procedural site was prepped and draped in the usual fashion. Local anesthetic was given subcutaneously to right groin region with Lidocaine 2%. Using a modified Seldinger technique, arterial access was obtained via the right femoral artery, a 4Fr sheath was inserted? Left Coronary Artery selective angiography was performed in multiple views using a 4 Fr. JL5 catheter. Right Coronary Artery selective angiography was then performed in multiple views using a 4 Fr. 3DRC catheter. Left Ventriculography was performed in CORDERO projection using a 4 Fr. Pigtail catheter. LV to AO pullback pressures were then recorded.Contrast was injected through the sheath and the Right Iliac and Femoral artery were assessed for possible closure device.The arterial sheath was pulled and a Mynx closure device was deployed for hemostasis CORONARY ANGIOGRAPHY DOMINANCE:? Right Dominant LEFT HEART ASSESSMENT Left Ventricular Ejection Fraction: by LV Gram 65 % Normal LV wall motion Normal Left Ventricular systolic function Normal Left Ventricular systolic function Normal Left Ventricular systolic function LEFT MAIN: Angiographically normal LEFT ANTERIOR DECENDING ARTERY: Angiographically normal CIRCUMFLEX ARTERY: Angiographically normal RIGHT CORONARY ARTERY: Angiographically normal Holter monitor: 10-22-2020 Sinus rhythm PACs Atrial run: 8 beats Isolated PVC No wide-complex runs Sinus pause: No greater than 2.4 seconds Carotid artery duplex study: 10/22/2020 Interpretation Summary Mild (<50%) stenosis right extracranial internal carotid. Mild (<50%) stenosis left extracranial internal carotid. Flow within the vertebral arteries is antegrade bilaterally. Radiography Diagnostic Testing: Radiology Impression Chest X-Ray 05/01/22 19:02 IMPRESSION: Small bilateral pleural effusions. Question right lower lobe pneumonia. Electronically Signed: Felicity Higgins MD at 20:30 EDT Reading Location ID and State: [id number] / Tel , Service support ,
[2022-05-02] MEDS: BRIMONIDINE 0.15% 5 ML Bottle 1 DRP OPHTHALMIC ×2 (09:15→21:13)
[2022-05-02] MEDS: Pantoprazole Sodium 40 MG Tablet PO (09:16)
[2022-05-02] MEDS: Timolol 0.5% 5ML OPTH.BTL 1 DRP RIGHT EYE ×2 (09:46→21:12)
[2022-05-02 10:23] LABS: ALB/GLOB Ratio 0.9 RATIO (0.9-2.4); AST(SGOT) 274 U/L (15-37); Alanine Aminotransfer ALT/SGPT 282 U/L (13-56); Albumin, Serum 3.2 g/dL (3.2-5.0); Alkaline Phosphatase 63 U/L (45-117); Anion Gap 11 (5-15); BUN 47 mg/dL (7-18); BUN/Creat Ratio 17.2 RATIO (10-20); Chloride 106 mmol/L (98-107); Creatinine, Serum 2.73 mg/dL (0.55-1.02); EST Glomerular Filtration Rate 18 mL/min (>60); Est Glom Filt Rate - Afr Amer 21 mL/min (>60); Estimated Creatinine Clearance 11.92 ml/min; Globulin 3.6 g/dL (2.2-4.2); Glucose 106 mg/dL (74-106); Magnesium 1.8 mg/dL (1.6-2.6); Potassium 4.1 mmol/L (3.5-5.1); Protein, Total 6.8 g/dL (6.4-8.2); Sodium Level 139 mmol/L (136-145)
--- NOTE | 2022-05-02 10:40 | CASEMGMT ---
JUMA FERNANDES assessment: Face to Face with patient for initial transition planning/care coordination assessment. JUMA FERNANDES introduced self and role at [facility], pt voices understanding and consents to assessment. Pt is sitting up in bed in no distress on room air. Pt is A/Ox4 and answers questions appropriately. Pt's daughter, Jessa, is at bedside during assessment.? Care providers, pharmacy,?and demographics verified/updated. ? Presentation: Pt states she is in Afib Admitting dx: Acute decomp HF PCP: Evon Specialists: Shante, cardio; Donato nephgabriela [facility]erred [facility]acy: [facility] Insurance: [employer] [facility] Living Will/HPOA: Pt has LW/HPOA and is aware that they are not on file at [facility]. Pt's daughter, Jessa Ragland, is HPOA. LNOK: Jessa Ragland, daughter/HPOA Living Arrangements: Pt lives alone in 1 story apt with no steps on same property as daughter, Jessa. Pt is independent with ADL's. Transportation: Pt states drives self and states no transportation concerns. DME/HHC: Pt has a cane, WW, and grab bars and states no need for any further DME. Pt states no hx of HHC or SNF. Pt/daughter state no concerns with going home at time of discharge. Pt is retired. Pt does not smoke cigarettes or drink ETOH. Pt/daughter state no further concerns/needs. CM to follow for any further discharge planning/needs. Advised pt to ask for CM if any further questions/concerns/needs arise, voices understanding. Pt Goal: Home ? Plan[place] JUMA FERNANDES
--- NOTE | 2022-05-02 15:18 | CHAPLAIN ---
Type of Pastoral Visit _x__ Initial Visit ___ Follow-up Visit ___ On-call Visit ___ General Patient Visit ___ Spiritual Assessment ___ Family Conference ___ Bereavement ___ Rapid Response ___ Code Blue ___ Other (describe below) Pastoral Care Referral From _x__ Patient ___ Family ___ Nurse ___ Physician ___ Marketing Graphics Specialist ___ Police Booking Officer ___ Other (describe below) Sacrament/Intervention _x__ Active listening ___ Anointing ___ Episcopal ___ Bereavement ___ Communion ___ Krystal exploration ___ _x__ Life review _x__ Prayer ___ Reconciliation ___ Sacrament of Sick _x__ Supportive presence ___ Wedding ___ Other (describe below) Pastoral Comments patient and daughter in room; both describe the health need of patient and then the course of action taken already; pt states she is feeling better now and just hopes to have it addressed for the future; pt goal is to have more strength and do things again; pt is not connected to a krystal group but has friends praying for her; pt welcomes prayer; no other needs
[2022-05-02] MEDS: Rivaroxaban 15 MG Tablet PO (15:59)
--- NOTE | 2022-05-02 16:38 | CON.PCM.RE_ITS ---
Assessment & Plan Assessment/Plan (1) Acute kidney injury superimposed on CKD: PLAN: Creatinine 2.0 on admission to 2.7 likely due to ATN from shock, decompensated A. fib with RVR requiring DC cardioversion in ED. Currently nonoliguric without need for urgent dialysis. Respiratory status stable without overt uremic symptoms. However did have extensive discussion of possibly needing dialysis if renal function continues to decline. There is a chance of needing dialysis permanently if we did start dialysis due to her underlying CKD and advanced age. Both daughters present at beside. Currently on Lasix drip for bilateral pleural effusion, CHF. May need to discontinue Lasix drip if creatinine continues to climb. Monitor labs daily. Agree with discontinuing ARB therapy for now due to rising creatinine. Avoid nephrotoxins such as contrast, NSAIDs (2) CKD (chronic kidney disease) stage 4, GFR 15-29 ml/min: PLAN: Baseline creatinine 1.6-1.9 EGFR 18 cc/min. Check UA for protein and blood. Check kidney ultrasound for size, symmetry (3) Elevated liver enzymes: PLAN: due to shock, decompensated afib with rvr (4) Acute heart failure with preserved ejection fraction (HFpEF): PLAN: Cardiology mgmt. Currently on lasix drip (5) Atrial fibrillation with rapid ventricular response: PLAN: S/P DC cardioversion on amiodarone in sinus rhythm with bradycardia. Cardiology mgmt. (6) Acute hypotension: PLAN: Due to decompensated A. fib with RVR status post DC cardioversion in ED (7) Abnormal cardiac enzyme level: PLAN: Cardiology management (8) Bilateral lower extremity edema: PLAN: Edema improved with diuretic therapy (9) Dyspnea on exertion: PLAN: due to CHF, afib with rvr (10) Palpitations: PLAN: due to afib with rvr HPI Consult Data Date of Consult: 05/03/22 HPI Narrative Reason for Consultation: acute on CKD stage 4 HPI Narrative: BERNADETTE ELIZABETH, is a 86 F who presents to ER for increased shortness of breath, fatigue, and weakness past 2 weeks. She has noticed palpitations off and on at home with facial flushing. She presented with atrial fibrillation with RVR heart rate in the 150s with hypotension s/p DC cardioversion in the emergency room yesterday. She had a echo in January 2022 with EF 70%. She has been in and out of the hospital past several months with GI bleed followed by pneumonia. She had diarrhea from antibiotic therapy but none lately. She denied any nausea or vomiting. She has been going in and out of atrial fibrillation on anticoagulation therapy. Chest x-ray showed bilateral pleural effusions on admission and in March. She had significant lower extremity edema on admission but has improved overnight with Lasix drip. Consulted for acute on CKD Stage 4. She had an initial consultation appointment in my office on 05/01/22 but family thought her appointment was on May 07. Baseline creatinine 1.6 to 1.9 eGFR 18 cc/min in February, March 2022, creatinine on admission was 2.0 progressed to 2.7 today. She is on Lasix as needed at home but recently was instructed to take 2 Lasix every other day. She was on Losartan that was discontinued due to rising creatinine and low blood pressure. Liver enzymes elevated with positive troponin levels. She denied any urinary complaints. Urine output has been good according to the patient. She has been relatively stable and able to perform her ADLs at her apartment prior to her admission. Patient's daughters present at bedside to provide history. [facility] Medical History (Updated 05/03/22 @ 09:[address] Bina Sewell, ) Acquired keratoderma Anemia Atrial fibrillation, new onset Essential hypertension Glaucoma Hemorrhage of anus and rectum Hernia HLD (hyperlipidemia) Near syncope Osteoporosis Palpitations Positive occult stool blood test Stage 3b chronic kidney disease (CKD) Sweating Syncope Umbilical hernia Home Medications atorvastatin 20 mg tablet 20 mg PO QODAY Cholesterol 12/06/16 [History Last Taken 02/19/22] latanoprost 0.005 % eye drops 1 drp EACHEYE QHS eye drops 12/06/16 [History Last Taken 02/20/22] timolol maleate 0.5 % eye drops 1 drp RIGHT EYE BID eye drops 12/06/16 [History Last Taken 02/20/22] alendronate 70 mg tablet 70 mg PO Q7D@0700 Bones 09/12/19 [History Last Taken 02/16/22] benzonatate 100 mg capsule 100 mg PO TID PRN Cough 03/25/22 [History Last Taken Unknown] brimonidine 0.15 % eye drops 1 drp ophthalmic (eye) BID Check with primary doctor 03/25/22 [History Last Taken Unknown] levothyroxine 25 mcg tablet 25 mcg PO DAILY Check with primary doctor 03/25/22 [History Last Taken Unknown] omeprazole 40 mg capsule,delayed release 40 mg PO DAILY gerd 03/25/22 [History Last Taken Unknown] furosemide 20 mg tablet 40 mg PO Q OTHER DAY PRN water pill 03/28/22 [History Last Taken Unknown] loperamide 2 mg capsule (Imodium A-D) 2 mg PO Q6H PRN loose stool #20 caps 04/04/22 [Rx Last Taken Unknown] ondansetron 4 mg disintegrating tablet 4 mg PO Q6H PRN nausea and vomiting #20 tabs 04/04/22 [Rx Last Taken Unknown] potassium chloride 10 mEq tablet,extended release 10 meq PO DAILY supplement #90 tabs 04/18/22 [Rx Last Taken Unknown] losartan 25 mg tablet 50 mg PO DAILY blood pressure 05/01/22 [History Last Taken Unknown] metoprolol succinate 50 mg tablet,extended release 24 hr 50 mg PO BID blood pressure 05/01/22 [History Last Taken Unknown] rivaroxaban 15 mg tablet (Xarelto) 15 mg PO DINNER blood thinner 05/01/22 [History Last Taken Unknown] Allergy/AdvReac Type Severity Reaction Status Date / Time amantadine Allergy Rash Verified 05/01/22 17:11 cephalexin Allergy Rash Verified 05/01/22 17:11 erythromycin base Allergy Rash Verified 05/01/22 17:11 hydrochlorothiazide Allergy Rash Verified 05/01/22 17:11 IVP DYE Allergy Rash Uncoded 05/01/22 17:11 Family History Mother CAD (coronary artery disease) Father CAD (coronary artery disease) Brother CAD (coronary artery disease) Sister CAD (coronary artery disease) Surgical History H/O hernia repair History of colonoscopy History of hysteroscopy History of left heart catheterization (02/05/18) s/p left wrist ORIF Tubal ligation status Social History (Updated 05/01/22 @ 22:16 by [facility] Law) household members: none housing: apartment number of children: 4 Smoking Status: Former smoker quit date: 06/29/76 alcohol intake: never substance use type: does not use caffeine: Yes (Occasionally) ROS Constitutional Constitutional: Reports weakness; Denies chills, fever(s) or weight loss Eyes Eyes: Denies loss of vision Cardiovascular Cardiovascular: Reports chest pain, dyspnea on exertion, edema, irregular heart rhythm and palpitations; Denies diaphoresis or syncope Gastrointestinal Gastrointestinal: Denies abdominal pain, anorexia, diarrhea or vomiting Genitourinary Genitourinary: Denies change in urinary stream, difficulty urinating or oliguria Musculoskeletal Musculoskeletal: Denies myalgias Neurologic Neurologic: Reports weakness; Denies abnormal gait Psychiatric Psychiatric: Denies anxiety, confusion or depression Hematologic/Lymphatic Hematologic/Lymphatic: Reports anemia, easy bleeding and other Details: Chronic anticoagulation therapy for A. fib Physical Exam Const alert, oriented x3 and no apparent distress General Appearance: well developed HEENT normocephalic Head and Scalp: atraumatic Eyes PERRL Resp no use of accessory muscles Auscultation: crackles bilateral base Cardio Rate: bradycardia GI Auscultation: normoactive bowel sounds Palpation: soft and firm no CVA tenderness Back/Spine normal ROM Extremity full ROM Skin no rashes or lesions noted Neuro moves all extremities Psych cooperative Lab / Micro Data Result Diagrams: 05/02/22 05:15 05/03/22 06:17 Labs: Laboratory Results - last 24 hr 05/01/22 19:20: Lactic Acid 3.9 H* 05/01/22 19:20: Troponin I High Sens 172 H* 05/01/22 21:35: Troponin I High Sens 273 H* 05/02/22 01:02: Troponin I High Sens 563 H* 05/02/22 01:02: Lactic Acid 1.4 05/02/22 05:15: WBC 10.1, RBC 3.63 L, Hgb 11.7 L, Hct 35.4 L, MCV 97.5, MCH 32.2 H, MCHC 33.1 D, RDW Std Deviation 49.1 H, RDW Coeff of [place] 13.9, Plt Count 164, MPV 11.0, Immature Gran % (Auto) 0.400, Neut % (Auto) 73.4 H, Lymph % (Auto) 19.8, [place] % (Auto) 5.6, Eos % (Auto) 0.5, Baso % (Auto) 0.3, Absolute Neuts (auto) 7.4, Absolute Lymphs (auto) 2.00, Nucleated RBC % 0 05/02/22 05:15: Sodium 139, Potassium 4.1, Chloride 106, Carbon Dioxide 22.0, Anion Gap 11, BUN 47 H, Creatinine 2.73 H, Estim Creat Clear Calc 11.92, Est GFR (MDRD) Af Amer 21 L, Est GFR (MDRD) Non-Af 18 L, BUN/Creatinine Ratio 17.2, Glucose 106, Calcium 9.0, Phosphorus 5.0 H, Magnesium 1.8, Total Bilirubin 0.80, AST 274 H, ALT 282 H, Alkaline Phosphatase 63, Total Protein 6.8, Albumin 3.2, Globulin 3.6, Albumin/Globulin Ratio 0.9 Radiology Impression Chest X-Ray 05/01/22 19:02 IMPRESSION: Small bilateral pleural effusions. Question right lower lobe pneumonia. Electronically Signed: Felicity Higgins MD at 20:30 EDT Reading Location ID and State: [id number] / Tel , Service support ,
--- NOTE | 2022-05-02 17:59 | US_ITS ---
INDICATION: riky on ckd EXAMINATION: Ultrasound US Kidney(s) complete (eg, kidneys and bladder) TECHNIQUE: Funes scale and color doppler images were obtained of the kidneys. COMPARISON: None. FINDINGS: RIGHT KIDNEY: 9.7 x 3.8 x 4.6 cm. 8 mm renal cortex. There is no hydronephrosis. No shadowing calculus, focal lesion or perinephric collection is demonstrated. LEFT KIDNEY: 10.2 x 5.3 x 5.1 cm. 8mm renal cortex. There is no hydronephrosis. No shadowing calculus, focal lesion or perinephric collection is demonstrated. Both kidneys show relatively hypoechoic renal perimenstrual. This may be due to increased echogenicity of the renal parenchyma as can be seen in chronic renal disease. Normal color flow seen in the hilum of both kidneys. URINARY BLADDER: 26 mL bladder volume shows no wall thickening, internal debris or mass. No free fluid in the pelvis. Unable to visualize right or left ureteral jets despite 5 minutes of real-time observation. US/Kidney and Bladder IMPRESSION: Normal renal morphology with no hydronephrosis. Findings suggesting mild increased echogenicity of the renal parenchyma; a nonspecific finding potentially associated with chronic renal insufficiency. Nonvisualization of the bilateral ureteral jets suggesting decreased renal function/filtration. Electronically Signed: Jacob Rios DO at 20:05 EDT ,
[2022-05-02] MEDS: Latanoprost 0.005% 1 Bottle 1 DRP EACH EYE (21:13)
[2022-05-02] MEDS: Atorvastatin Calcium 20 MG Tablet PO (21:15)
[2022-05-03] VITALS (9 sets, daily range): BP systolic 138–163; BP diastolic 46–51; PULSE 40–110; RESP 16–18; TEMP 36.4–36.8; O2SAT 97–99
[2022-05-03 00:45] LABS: Mucous, Urine 0 SEEN /hpf (<or=2+)
[2022-05-03 00:46] LABS: Color, Urine Yellow (Yellow); Glucose, Dipstick Normal (Normal); Ketone-Dipstick Negative (Negative); Leukocyte Esterase-Dipstick 500 /ul (Negative); Nitrite-Dipstick Positive (Negative); Occult Blood-Urine 250 /ul (Negative); Protein-Dipstick Negative (Negative); Urine Bilirubin Dipstick Negative (Negative); Urine Clarity Clear (Clear); Urine Urobilinogen Normal (Normal)
[2022-05-03 00:53] LABS: Urine Sodium 118 mmol/L (Not Establ.)
[2022-05-03 00:56] LABS: Bacteria 3+ /hpf (None Seen); Protein, Urine (Random) 14.5 mg/dL (<11.9); Protein:Creat Ratio 556 mg/g CRE (0-200); Red Blood Cells-Urine 0-5 SEEN /hpf (0-5); Squamous Epithelial Cells - UA 0-5 SEEN /hpf (5-10); White Blood Cells 0-5 SEEN /hpf (0-5)
[2022-05-03] MEDS: Furosemide 500 MG in Empty Viaflex 50 mL 1 EACH CONT INF (02:13)
[2022-05-03] MEDS: Levothyroxine 25 MCG TABLET PO (05:04)
[2022-05-03 08:08] LABS: ALB/GLOB Ratio 0.9 RATIO (0.9-2.4); AST(SGOT) 141 U/L (15-37); Alanine Aminotransfer ALT/SGPT 262 U/L (13-56); Alkaline Phosphatase 57 U/L (45-117); Anion Gap 8 (5-15); BUN 53 mg/dL (7-18); BUN/Creat Ratio 19.1 RATIO (10-20); Calcium,Total 8.9 mg/dL (8.5-10.1); Chloride 103 mmol/L (98-107); Creatinine, Serum 2.77 mg/dL (0.55-1.02); EST Glomerular Filtration Rate 17 mL/min (>60); Est Glom Filt Rate - Afr Amer 21 mL/min (>60); Estimated Creatinine Clearance 11.74 ml/min; Globulin 3.3 g/dL (2.2-4.2); Glucose 87 mg/dL (74-106); Potassium 3.7 mmol/L (3.5-5.1); Protein, Total 6.3 g/dL (6.4-8.2); Sodium Level 138 mmol/L (136-145)
[2022-05-03] MEDS: Pantoprazole Sodium 40 MG Tablet PO (11:10)
[2022-05-03] MEDS: Timolol 0.5% 5ML OPTH.BTL 1 DRP RIGHT EYE ×2 (11:10→21:24)
[2022-05-03] MEDS: BRIMONIDINE 0.15% 5 ML Bottle 1 DRP OPHTHALMIC ×2 (11:11→21:25)
--- NOTE | 2022-05-03 12:40 | PN.HOSP_ITS ---
Subjective Subjective Patient seen and examined. She was sitting comfortably in bed. She had no active complaints today and had an uneventful night. Review of systems otherwise negative. Creatinine has trended upwards to 2.77. She is on room air. Objective Data Objective Data Vital Signs: Vital Signs Temp Pulse Resp BP Pulse Ox O2 Del Method O2 Flow Rate 97.8 F 50 L 16 151/51 H 97 Room Air 3 05/03/22 09:45 05/03/22 09:45 05/03/22 09:45 05/03/22 09:45 05/03/22 09:45 05/03/22 10:00 05/01/22 18:52 Oxygen Flow Rate (L/min) [1] 92 Oxygen Flow Rate (L/min) 3 Oxygen Delivery Method [1] Room Air Oxygen Delivery Method Room Air Weight: 131 lb 6.328 oz Body Mass Index (BMI) 23.6 Intake & Output: Intake and Output for Last 24 Hours 05/01/22 05/02/22 05/03/22 23:59 23:59 23:59 Intake Total 119.66 / 367.99 757.72 / 757.72 243.97 / 243.97 Output Total 820 / 1940 1670 / 1670 Balance 119.66 / 247.99 -62.28 / -1182.28 -1426.03 / -1426.03 Lab / Micro Data Result Diagrams: 05/02/22 05:15 05/03/22 06:17 Labs: Laboratory Results - last 24 hr 05/03/22 00:36: Urine Color Yellow, Urine Clarity Clear, Urine pH 6.0, Ur Specific [place] 1.010, Urine Protein Negative, Urine Glucose (UA) Normal, Urine Ketones Negative, Urine Occult Blood 250 H, Urine Nitrite Positive H, Urine Bilirubin Negative, Urine Urobilinogen Normal, Ur Leukocyte Esterase 500 H, Urine RBC 0-5 SEEN, Urine WBC 0-5 SEEN, Ur Squamous Epith Cells 0-5 SEEN, Urine Bacteria 3+, Urine Mucus 0 SEEN 05/03/22 00:36: U Random Total Protein 14.5 H, Urine Creatinine 26.10, Protein/Creatinin Ratio 556 H 05/03/22 00:36: Ur Random Sodium 118 05/03/22 06:17: Sodium 138, Potassium 3.7, Chloride 103, Carbon Dioxide 27.0, Anion Gap 8, BUN 53 H, Creatinine 2.77 H, Estim Creat Clear Calc 11.74, Est GFR (MDRD) Af Amer 21 L, Est GFR (MDRD) Non-Af 17 L, BUN/Creatinine Ratio 19.1, Glucose 87, Calcium 8.9, Total Bilirubin 0.70, AST 141 H, ALT 262 H, Alkaline Phosphatase 57, Total Protein 6.3 L, Albumin 3.0 L, Globulin 3.3, Albumin/Globul in Ratio 0.9 Radiography Diagnostic Testing: Radiology Impression Renal Ultrasound 05/02/22 17:59 IMPRESSION: Normal renal morphology with no hydronephrosis. Findings suggesting mild increased echogenicity of the renal parenchyma; a nonspecific finding potentially associated with chronic renal insufficiency. Nonvisualization of the bilateral ureteral jets suggesting decreased renal function/filtration. Electronically Signed: Jacob Rios DO at 20:05 EDT , Physical Exam Const alert, oriented x3 and no apparent distress HEENT head/scalp atraumatic, moist oral mucous membranes and oropharynx normal Head and Scalp: normocephalic Mouth: oral and palatal mucosa normal Eyes PERRL, EOMs intact bilaterally and conjunctivae normal Neck no lymphadenopathy and supple Resp normal respiratory effort, no retractions, no use of accessory muscles and clear to auscultation bilaterally Cardio regular rate, regular rhythm, S1 normal heart sound, S2 normal heart sound and no murmurs GI normal to inspection, nondistended, normoactive bowel sounds, soft to palpation, non-tender and non-distended Extremity normal to inspection, full ROM and no clubbing, cyanosis or edema Neuro oriented x3, CN's II-XII intact bilaterally, moves all extremities and no focal motor deficits Sensorium / Orientation: awake and alert Motor Exam: strength 5/5 throughout Assessment & Plan Assessment/Plan (1) Acute heart failure with preserved ejection fraction (HFpEF): (2) Atrial fibrillation with rapid ventricular response: PLAN: Plan #A. fib with RVR * Resolved. Now rate controlled. Had cardioversion in the ED. * Was placed on amiodarone drip and subsequently converted to oral amiodarone. * Cardiology on board. On Xarelto. * Was bradycardic today so her Coreg was held. * #Acute on chronic heart failure with preserved ejection fraction * Currently on Lasix drip. Creatinine trended up to 2.77 today. Patient appears to be euvolemic and is on room air * Will DC Lasix drip today on account of elevated creatinine and monitor cr eatinine overnight. * #GERI on CKD IV * Creatinine is up to 2.77 today. * Likely due to diuretics. Will DC Lasix drip today and trend creatinine. * Avoid nephrotoxic meds. Nephrology on board. * Run ultrasound did not show any acute pathology. * #Elevated troponins: * Thought to be due to type II non-STEMI from demand ischemia. Stable. Cardiology on board. * Had cardiac cath in the past which showed normal coronaries. * #Hyperlipidemia: On statin Hypertension: coreg held today due to bradycardia. Was hypotensive on admission but this is now resolved. #Hypothyroidism: On Synthroid #Glaucoma: Continue eyedrops- timolol and brimonidine DVT prophylaxis: on xarelto Charges/Coding Visit Charges Inpatient E&M: 41672 Subs Hosp L2
--- NOTE | 2022-05-03 14:30 | PCM.PN.CARD ---
Subjective Subjective Seen and evaluated today at bedside, daughter at bedside at time of evaluation and also discussed with the nursing staff She was sitting out in a chair comfortably she has no active complaints noted today. Objective Data Vital Signs: Vital Signs Temp Pulse Resp BP Pulse Ox O2 Del Method O2 Flow Rate 97.8 F 50 L 16 151/51 H 97 Room Air 3 05/03/22 09:45 05/03/22 09:45 05/03/22 09:45 05/03/22 09:45 05/03/22 09:45 05/03/22 10:00 05/01/22 18:52 Oxygen Flow Rate (L/min) [1] 92 Oxygen Flow Rate (L/min) 3 Oxygen Delivery Method [1] Room Air Oxygen Delivery Method Room Air Weight: 131 lb 6.328 oz Body Mass Index (BMI) 23.6 Intake & Output: Intake and Output for Last 24 Hours 05/01/22 05/02/22 05/03/22 23:59 23:59 23:59 Intake Total 119.66 / 367.99 757.72 / 757.72 254.54 / 254.54 Output Total 820 / 1940 1670 / 1670 Balance 119.66 / 247.99 -62.28 / -1182.28 -1415.46 / -1415.46 Lab / Micro Data Result Diagrams: 05/04/22 05:45 05/04/22 05:45 Labs: Laboratory Results - last 24 hr 05/03/22 00:36: Urine Color Yellow, Urine Clarity Clear, Urine pH 6.0, Ur Specific [place] 1.010, Urine Protein Negative, Urine Glucose (UA) Normal, Urine Ketones Negative, Urine Occult Blood 250 H, Urine Nitrite Positive H, Urine Bilirubin Negative, Urine Urobilinogen Normal, Ur Leukocyte Esterase 500 H, Urine RBC 0-5 SEEN, Urine WBC 0-5 SEEN, Ur Squamous Epith Cells 0-5 SEEN, Urine Bacteria 3+, Urine Mucus 0 SEEN 05/03/22 00:36: U Random Total Protein 14.5 H, Urine Creatinine 26.10, Protein/Creatinin Ratio 556 H 05/03/22 00:36: Ur Random Sodium 118 05/03/22 06:17: Sodium 138, Potassium 3.7, Chloride 103, Carbon Dioxide 27.0, Anion Gap 8, BUN 53 H, Creatinine 2.77 H, Estim Creat Clear Calc 11.74, Est GFR (MDRD) Af Amer 21 L, Est GFR (MDRD) Non-Af 17 L, BUN/Creatinine Ratio 19.1, Glucose 87, Calcium 8.9, Total Bilirubin 0.70, AST 141 H, ALT 262 H, Alkaline Phosphatase 57, Total Protein 6.3 L, Albumin 3.0 L, Globulin 3.3, Albumin/Globulin Ratio 0.9 Cardiology Labs/Tests 05/03/22 00:36: Urine Color Yellow, Urine Clarity Clear, Urine pH 6.0, Ur Specific [place] 1.010, Urine Protein Negative, Urine Glucose (UA) Normal, Urine Ketones Negative, Urine Occult Blood 250 H, Urine Nitrite Positive H, Urine Bilirubin Negative, Urine Urobilinogen Normal, Ur Leukocyte Esterase 500 H, Urine RBC 0-5 SEEN, Urine WBC 0-5 SEEN 05/03/22 06:17: Sodium 138, Potassium 3.7, Chloride 103, Carbon Dioxide 27.0, Anion Gap 8, BUN 53 H, Creatinine 2.77 H, Est GFR (MDRD) Af Amer 21 L, Est GFR (MDRD) Non-Af 17 L, BUN/Creatinine Ratio 19.1, Glucose 87, Calcium 8.9, Total Bilirubin 0.70 Rhythm: EKG: ECHO: Stress Test: Cardiac Cath: PCI: CT Surgery: Holter monitor: EPS: PPM: CXR: Chest CT Scan: Radiography Diagnostic Testing: Radiology Impression Renal Ultrasound 05/02/22 17:59 IMPRESSION: Normal renal morphology with no hydronephrosis. Findings suggesting mild increased echogenicity of the renal parenchyma; a nonspecific finding potentially associated with chronic renal insufficiency. Nonvisualization of the bilateral ureteral jets suggesting decreased renal function/filtration. Electronically Signed: Jacob Rios DO at 20:05 EDT , Physical Exam Narrative Review of the cardiac telemetry showed normal sinus with sinus bradycardia and infrequent PACs. Cardiovascular exam S1-S2 is regular There is no systolic or diastolic murmur Chest examination clear to auscultation bilaterally Assessment & Plan Assessment/Plan (1) Acute heart failure with preserved ejection fraction (HFpEF): (2) Atrial fibrillation with rapid ventricular response: PLAN: Plan 86-year-old patient, with A. fib RVR underwent biphasic synchronized cardioversion converted to sinus rhythm, remains in normal sinus with sinus bradycardia and infrequent PACs. LV systolic function is preserved. Patient had a cardiac evaluation previously with cardiac cath in 2018 with normal coronary arteries She has acute on chronic heart failure with preserved ejection fraction And she has been on diuretic therapy with elevated lactate to 2.7 Lasix has been discontinued and we will continue to monitor electrolytes and renal function Cardiac care plan recommendations; 1. Patient currently on anticoagulation with rivaroxaban 15 mg In addition to beta-alejandra carvedilol. Low-dose tolerating very well hemodynamically 2. She has mild elevation of cardiac biomarker which is due to type II non-STEMI with demand myocardial ischemia From cardiac standpoint we will follow-up clinically and patient will follow-up as an outpatient with primary sausage stuffer Dr. Frey, for continuation of cardiac care
[2022-05-03] MEDS: Rivaroxaban 15 MG Tablet PO (17:36)
[2022-05-03] MEDS: Carvedilol 3.125 MG TABLET PO (21:23)
[2022-05-03] MEDS: 0.9% Saline Lock 10 ML Syringe IV (21:23)
[2022-05-03] MEDS: Latanoprost 0.005% 1 Bottle 1 DRP EACH EYE (21:24)
[2022-05-04] VITALS (8 sets, daily range): BP systolic 125–142; BP diastolic 44–57; PULSE 54–108; RESP 16–18; TEMP 36.4–36.9; O2SAT 95–99
[2022-05-04 06:04] LABS: Absolute Lymphocyte Count 1.86 X10^3/uL (0.83-4.51); Absolute Neutrophil Count 4.3 X10^3/uL (2.0-7.7); Basophil# 0.03 X10^3/uL; Basophil% 0.4 % (0-1); Eosinophils% 2.9 % (0-5); Hematocrit 33.4 % (37-47); Hemoglobin 11.1 g/dL (12.0-15.0); Lymphocyte # 1.86 X10^3/ul (0.83-4.51); Lymphocyte % 26.9 % (19-41); Mean Corp Hgb Conc 33.2 g/dL (32-36); Mean Corpuscular Hgb 31.9 pg (27.0-32.0); Mean Platelet Vol. 9.9 fl (6.2-12.0); Monocyte# 0.56 X10^3/uL; Monocyte% 8.1 % (0-10); NRBC Flagged by Analyzer 0 % (0-5); Neutrophil # 4.25 X10^3/uL (2.7-7.7); Neutrophil % 61.6 % (47-70); Platelet Count 187 K/mm3 (150-450); Red Blood Count 3.48 M/mm3 (4.2-5.4); White Blood Count 6.9 K/mm3 (4.4-11.0)
[2022-05-04] MEDS: Levothyroxine 25 MCG TABLET PO (06:24)
[2022-05-04 06:39] LABS: ALB/GLOB Ratio 0.8 RATIO (0.9-2.4); AST(SGOT) 67 U/L (15-37); Alanine Aminotransfer ALT/SGPT 174 U/L (13-56); Albumin, Serum 2.8 g/dL (3.2-5.0); Alkaline Phosphatase 53 U/L (45-117); Anion Gap 7 (5-15); BUN 48 mg/dL (7-18); BUN/Creat Ratio 23.1 RATIO (10-20); Calcium,Total 8.3 mg/dL (8.5-10.1); Chloride 100 mmol/L (98-107); Creatinine, Serum 2.08 mg/dL (0.55-1.02); EST Glomerular Filtration Rate 24 mL/min (>60); Est Glom Filt Rate - Afr Amer 29 mL/min (>60); Estimated Creatinine Clearance 15.64 ml/min; Globulin 3.3 g/dL (2.2-4.2); Glucose 99 mg/dL (74-106); Potassium 2.6 mmol/L (3.5-5.1); Protein, Total 6.1 g/dL (6.4-8.2); Sodium Level 140 mmol/L (136-145)
[2022-05-04] MEDS: Timolol 0.5% 5ML OPTH.BTL 1 DRP RIGHT EYE ×2 (09:21→21:09)
[2022-05-04] MEDS: Potassium Chloride 10mEq/100mL 10 MEQ/100 ML IV.SOLN. 100 MEQ IV BOLUS (09:21)
[2022-05-04] MEDS: Carvedilol 3.125 MG TABLET PO ×2 (09:21→21:09)
[2022-05-04] MEDS: BRIMONIDINE 0.15% 5 ML Bottle 1 DRP OPHTHALMIC ×2 (09:21→21:09)
[2022-05-04] MEDS: Pantoprazole Sodium 40 MG Tablet PO (09:21)
[2022-05-04 10:03] LABS: Magnesium 1.4 mg/dL (1.6-2.6)
--- NOTE | 2022-05-04 10:25 | PN.HOSP_ITS ---
Subjective Subjective Patient seen and examined. She feels well and has no active complaints and felt much better. She denied any shortness of breath, cough, chest pain, palpitations, dizziness, nausea, vomiting or diarrhea. Review of systems is otherwise negative. Cr is down to 2 today. Potassium is 2.6 and Mg is 1.4 Objective Data Objective Data Vital Signs: Vital Signs Temp Pulse Resp BP Pulse Ox O2 Del Method O2 Flow Rate 97.6 F L 55 L 18 138/44 H 95 Room Air 3 05/04/22 09:20 05/04/22 09:20 05/04/22 09:20 05/04/22 09:20 05/04/22 09:20 05/04/22 09:20 05/01/22 18:52 Oxygen Flow Rate (L/min) [1] 92 Oxygen Flow Rate (L/min) 3 Oxygen Delivery Method [1] Room Air Oxygen Delivery Method Room Air Weight: 131 lb 6.328 oz Body Mass Index (BMI) 23.6 Intake & Output: Intake and Output for Last 24 Hours 05/02/22 05/03/22 05/04/22 23:59 23:59 22:59 Intake Total 757.72 / 757.72 494.54 / 494.54 86.67 / 86.67 Output Total 820 / 1940 2870 / 2870 500 / 500 Balance -62.28 / -1182.28 -2375.46 / -2375.46 -413.33 / -413.33 Lab / Micro Data Result Diagrams: 05/04/22 05:45 05/04/22 05:45 Labs: Laboratory Results - last 24 hr 05/04/22 05:45: Sodium 140, Potassium 2.6 L*, Chloride 100, Carbon Dioxide 33.0 H, Anion Gap 7, BUN 48 H, Creatinine 2.08 H, Estim Creat Clear Calc 15.64, Est GFR (MDRD) Af Amer 29 L, Est GFR (MDRD) Non-Af 24 L, BUN/Creatinine Ratio 23.1 H , Glucose 99, Calcium 8.3 L, Total Bilirubin 0.90, AST 67 H, ALT 174 H, Alkaline Phosphatase 53, Total Protein 6.1 L, Albumin 2.8 L, Globulin 3.3, Albumin/Globulin Ratio 0.8 L 05/04/22 05:45: WBC 6.9, RBC 3.48 L, Hgb 11.1 L, Hct 33.4 L, MCV 96.0, MCH 31.9, MCHC 33.2, RDW Std Deviation 48.0 H, RDW Coeff of Broderick 14.0, Plt Count 187, MPV 9.9, Immature Gran % (Auto) 0.100, Neut % (Auto) 61.6, Lymph % (Auto) 26.9, [place] % (Auto) 8.1, Eos % (Auto) 2.9, Baso % (Auto) 0.4, Absolute Neuts (auto) 4.3, Absolute Lymphs (auto) 1.86, Nucleated RBC % 0 05/04/22 09:40: Magnesium 1.4 L Physical Exam Const alert, oriented x3 and no apparent distress HEENT head/scalp atraumatic, moist oral mucous membranes and oropharynx normal Head and Scalp: normocephalic Mouth: oral and palatal mucosa normal Eyes PERRL, EOMs intact bilaterally and conjunctivae normal Neck no lymphadenopathy and supple Resp normal respiratory effort, no retractions, no use of accessory muscles and clear to auscultation bilaterally Cardio regular rate, regular rhythm, S1 normal heart sound, S2 normal heart sound and no murmurs GI normal to inspection, nondistended, normoactive bowel sounds, soft to palpation, non-tender and non-distended Extremity normal to inspection, full ROM and no clubbing, cyanosis or edema Neuro oriented x3, CN's II-XII intact bilaterally, moves all extremities and no focal motor deficits Sensorium / Orientation: awake and alert Motor Exam: strength 5/5 throughout Assessment & Plan Assessment/Plan (1) Acute heart failure with preserved ejection fraction (HFpEF): (2) Atrial fibrillation with rapid ventricular response: PLAN: Plan #A. fib with RVR * Resolved. Now rate controlled. Had cardioversion in the ED. * Was placed on amiodarone drip and subsequently converted to oral amiodarone. * Cardiology on board. On Xarelto. * still mildly bradycardic with HR in the 50s. * #Acute on chronic heart failure with preserved ejection fraction * lasix drip discontinued yesterday due to increase in Cr * on room air and euvolemic. 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 * improved after lasix drip was discontinued * nephrology on board. * #Hypokalemia and hypomagnesemia * Potassium is 2.6. Patient not tolerating IV potassium so switch her oral potassium replacement and trend. Magnesium is also 1.4. Will replace aggressively and trend. * #Elevated troponins: * Thought to be due to type II non-STEMI from demand ischemia. Stable. Cardiology on board. * Had cardiac cath in the past which showed normal coronaries. * #Hyperlipidemia: On statin Hypertension: coreg held today due to bradycardia. Was hypotensive on admission but this is now resolved. #Hypothyroidism: On Synthroid #Glaucoma: Continue eyedrops- timolol and brimonidine DVT prophylaxis: on xarelto Charges/Coding Visit Charges Inpatient E&M: 49599 Subs Hosp L2
[2022-05-04] MEDS: Potassium Chloride Oral Tablet 20 MEQ 60 MEQ PO (10:42)
[2022-05-04] MEDS: Magnesium Sulfate 4gm/100mL 4 GM/100 ML IV.SOLN. IV (11:00)
--- NOTE | 2022-05-04 14:19 | PN.CARD_ITS ---
Subjective Subjective Seen and evaluated today at bedside along with the nursing staff Daughter visiting from [place] Patient was lying in bed comfortable she had no symptoms reported today Review of air conditioning coil assembler showed sinus rhythm with sinus bradycardia and PACs Cardiovascular exam S1-S2 is regular Chest exam clear to auscultation bilateral Examination lower extremity no lower extremity edema noted. Objective Data Vital Signs: Vital Signs Temp Pulse Resp BP Pulse Ox O2 Del Method O2 Flow Rate 97.6 F L 55 L 18 138/44 H 95 Room Air 3 05/04/22 09:20 05/04/22 09:20 05/04/22 09:20 05/04/22 09:20 05/04/22 09:20 05/04/22 09:20 05/01/22 18:52 Oxygen Flow Rate (L/min) [1] 92 Oxygen Flow Rate (L/min) 3 Oxygen Delivery Method [1] Room Air Oxygen Delivery Method Room Air Weight: 131 lb 6.328 oz Body Mass Index (BMI) 23.6 Intake & Output: Intake and Output for Last 24 Hours 05/02/22 05/03/22 05/04/22 23:59 23:59 22:59 Intake Total 757.72 / 757.72 494.54 / 494.54 460.00 / 460.00 Output Total 820 / 1940 2870 / 2870 825 / 825 Balance -62.28 / -1182.28 -2375.46 / -2375.46 -365.00 / -365.00 Lab / Micro Data Result Diagrams: 05/04/22 05:45 05/04/22 05:45 Labs: Laboratory Results - last 24 hr 05/04/22 05:45: Sodium 140, Potassium 2.6 L*, Chloride 100, Carbon Dioxide 33.0 H, Anion Gap 7, BUN 48 H, Creatinine 2.08 H, Estim Creat Clear Calc 15.64, Est GFR (MDRD) Af Amer 29 L, Est GFR (MDRD) Non-Af 24 L, BUN/Creatinine Ratio 23.1 H , Glucose 99, Calcium 8.3 L, Total Bilirubin 0.90, AST 67 H, ALT 174 H, Alkaline Phosphatase 53, Total Protein 6.1 L, Albumin 2.8 L, Globulin 3.3, Albumin/ Globulin Ratio 0.8 L 05/04/22 05:45: WBC 6.9, RBC 3.48 L, Hgb 11.1 L, Hct 33.4 L, MCV 96.0, MCH 31.9, MCHC 33.2, RDW Std Deviation 48.0 H, RDW Coeff of Broderick 14.0, Plt Count 187, MPV 9.9, Immature Gran % (Auto) 0.100, Neut % (Auto) 61.6, Lymph % (Auto) 26.9, [place] % (Auto) 8.1, Eos % (Auto) 2.9, Baso % (Auto) 0.4, Absolute Neuts (auto) 4.3, Absolute Lymphs (auto) 1.86, Nucleated RBC % 0 05/04/22 09:40: Magnesium 1.4 L Micro: Microbiology 05/03/22 00:36 Urine, Midstream Urine Culture - 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4 L Rhythm: EKG: ECHO: Stress Test: Cardiac Cath: PCI: CT Surgery: Holter monitor: EPS: PPM: CXR: Chest CT Scan: Assessment & Plan Assessment/Plan (1) CKD (chronic kidney disease) stage 4, GFR 15-29 ml/min: (2) Atrial fibrillation with rapid ventricular response: (3) GI bleed: (4) Acute heart failure with preserved ejection fraction (HFpEF): PLAN: Plan 86-year-old patient, with history of paroxysmal A. fib underwent synchronized cardioversion/biphasic Converted to sinus and remains in sinus rhythm. She has been on diuretic therapy for lower extremity edema and shortness heart f ailure with preserved ejection fraction Noted her electrolytes were abnormal with a low potassium of 2.6 and a low magnesium 1.4 which is replaced. Cardiac care plan; 1. This patient is a prior cardiac catheterization which showed LV function with preserved with no significant coronary atherosclerosis normal coronary arteries. 2. Patient also had echocardiogram in January 2022 which showed LV function preserved mildly dilated left atrium with mild TR and trivial pericardial effusion 3. On the air conditioning coil assembler showed underlying sinus bradycardia with occasional premature ectopic complexes. 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
[2022-05-04] MEDS: Rivaroxaban 15 MG Tablet PO (16:23)
[2022-05-04 16:32] LABS: Magnesium 3.1 mg/dL (1.6-2.6); Potassium 3.5 mmol/L (3.5-5.1)
[2022-05-04] MEDS: Latanoprost 0.005% 1 Bottle 1 DRP EACH EYE (21:09)
[2022-05-04] MEDS: Atorvastatin Calcium 20 MG Tablet PO (21:09)
[2022-05-04] MEDS: 0.9% Saline Lock 10 ML Syringe IV (21:12)
[2022-05-05] VITALS (8 sets, daily range): BP systolic 121–155; BP diastolic 46–52; PULSE 45–57; RESP 14–16; TEMP 36.6–36.7; O2SAT 95–99
[2022-05-05] MEDS: Levothyroxine 25 MCG TABLET PO (05:28)
[2022-05-05 08:02] LABS: Absolute Neutrophil Count 3.7 X10^3/uL (2.0-7.7); Basophil# 0.04 X10^3/uL; Basophil% 0.6 % (0-1); Eosinophil# 0.25 X10^3/uL; Eosinophils% 3.9 % (0-5); Hematocrit 33.4 % (37-47); Hemoglobin 10.8 g/dL (12.0-15.0); Mean Corp Hgb Conc 32.3 g/dL (32-36); Mean Corpuscular Hgb 31.5 pg (27.0-32.0); Mean Corpuscular Volume 97.4 fL (81-99); Mean Platelet Vol. 10.5 fl (6.2-12.0); Monocyte# 0.65 X10^3/uL; Monocyte% 10.1 % (0-10); NRBC Flagged by Analyzer 0 % (0-5); Neutrophil # 3.68 X10^3/uL (2.7-7.7); Neutrophil % 57.1 % (47-70); Platelet Count 199 K/mm3 (150-450); RBC Distribution Width CV 14.3 % (11.6-14.6); RBC Distribution Width SD 49.7 fl (35.1-43.9); Red Blood Count 3.43 M/mm3 (4.2-5.4); White Blood Count 6.4 K/mm3 (4.4-11.0)
[2022-05-05 08:43] LABS: Albumin, Serum 2.7 g/dL (3.2-5.0); Anion Gap 5 (5-15); BUN 39 mg/dL (7-18); BUN/Creat Ratio 25.8 RATIO (10-20); Calcium,Total 8.6 mg/dL (8.5-10.1); Chloride 104 mmol/L (98-107); Creatinine, Serum 1.51 mg/dL (0.55-1.02); EST Glomerular Filtration Rate 35 mL/min (>60); Est Glom Filt Rate - Afr Amer 42 mL/min (>60); Estimated Creatinine Clearance 21.54 ml/min; Glucose 98 mg/dL (74-106); Magnesium 2.5 mg/dL (1.6-2.6); Phosphorus 1.9 mg/dL (2.5-4.9); Potassium 3.5 mmol/L (3.5-5.1); Sodium Level 140 mmol/L (136-145)
[2022-05-05] MEDS: BRIMONIDINE 0.15% 5 ML Bottle 1 DRP OPHTHALMIC (10:25)
[2022-05-05] MEDS: Carvedilol 3.125 MG TABLET PO (10:26)
[2022-05-05] MEDS: Pantoprazole Sodium 40 MG Tablet PO (10:27)
[2022-05-05] MEDS: Timolol 0.5% 5ML OPTH.BTL 1 DRP RIGHT EYE (10:27)
[2022-05-05] MEDS: Furosemide 20 MG Tablet PO (10:27)
--- NOTE | 2022-05-05 10:47 | PN.RENAL_ITS ---
Subjective Subjective feeling better, less short of breath, edema resolved. Spoke with pt dtr at bedside Objective Data Objective Data Vital Signs: Vital Signs Temp Pulse Resp BP Pulse Ox O2 Del Method O2 Flow Rate 97.9 F 48 L 14 155/46 H 99 Room Air 3 05/05/22 09:10 05/05/22 09:10 05/05/22 09:10 05/05/22 09:10 05/05/22 09:10 05/05/22 09:10 05/01/22 18:52 Oxygen Flow Rate (L/min) [1] 92 Oxygen Flow Rate (L/min) 3 Oxygen Delivery Method [1] Room Air Oxygen Delivery Method Room Air Weight: 59.6 kg Body Mass Index (BMI) 23.6 Intake & Output: Intake and Output for Last 24 Hours 05/04/22 05/04/22 05/05/22 00:59 23:59 23:59 Intake Total Output Total 100 / 100 Balance -100 / -100 Lab / Micro Data Result Diagrams: 05/05/22 06:48 05/05/22 06:48 Labs: Laboratory Results - last 24 hr 05/04/22 16:00: Potassium 3.5, Magnesium 3.1 H 05/05/22 06:48: WBC 6.4, RBC 3.43 L, Hgb 10.8 L, Hct 33.4 L, MCV 97.4, MCH 31.5, MCHC 32.3, RDW Std Deviation 49.7 H, RDW Coeff of Broderick 14.3, Plt Count 199, MPV 10.5, Immature Gran % (Auto) 0.300, Neut % (Auto) 57.1, Lymph % (Auto) 28.0, [place] % (Auto) 10.1 H, Eos % (Auto) 3.9, Baso % (Auto) 0.6, Absolute Neuts (auto) 3.7, Absolute Lymphs (auto) 1.80, Nucleated RBC % 0 05/05/22 06:48: Sodium 140, Potassium 3.5, Chloride 104, Carbon Dioxide 31.0, Anion Gap 5, BUN 39 H, Creatinine 1.51 H, Estim Creat Clear Calc 21.54, Est GFR (MDRD) Af Amer 42 L, Est GFR (MDRD) Non-Af 35 L, BUN/Creatinine Ratio 25.8 H, Glucose 98, Calcium 8.6, Phosphorus 1.9 L, Magnesium 2.5, Albumin 2.7 L Micro: Microbiology 05/03/22 00:36 Urine, Midstream Urine Culture - Final Klebsiella pneumoniae sp pneum Mixed Gram Positive Organisms Physical Exam Const alert and oriented x3 Resp Auscultation: crackles Cardio regular rate Rate: bradycardia GI non-tender and non-distended Auscultation: normoactive bowel sounds Palpation: soft Extremity no clubbing, cyanosis or edema Assessment & Plan Assessment/Plan (1) Acute kidney injury superimposed on CKD: PLAN: Creatinine improved to 1.5 eGFR 35cc/min placing her at CKD stage 3B. Acute kidney injury from ATN that is recovering. Continue to hold ARB therapy for now until renal fxn stabilizes. No dialysis needed. follow up with me in 1-2 wks (2) Stage 3b chronic kidney disease (CKD): PLAN: creatinine 1.5 eGFR 35cc/min from today (3) Elevated liver enzymes: PLAN: due to shock, decompensated afib with rvr (4) Acute heart failure with preserved ejection fraction (HFpEF): PLAN: Continue lasix daily for now. (5) Atrial fibrillation with rapid ventricular response: PLAN: S/P DC cardioversion on amiodarone in sinus rhythm with bradycardia. Cardiology mgmt. (6) Acute hypotension: PLAN: Due to decompensated A. fib with RVR status post DC cardioversion in ED. BP stable (7) Abnormal cardiac enzyme level: PLAN: Cardiology management (8) Bilateral lower extremity edema: PLAN: Edema improved with diuretic therapy (9) Dyspnea on exertion: PLAN: due to CHF, afib with rvr (10) Palpitations: PLAN: due to afib with rvr resolved (11) Hypokalemia: PLAN: replaced
--- NOTE | 2022-05-05 12:57 | PN.CARD_ITS ---
Subjective Subjective The patient is awake and alert. She has been up in her bedside chair. She has been up and ambulating in the hallway. She states overall she feels much better compared to when she was brought to the hospital. Objective Data Vital Signs: Vital Signs Temp Pulse Resp BP Pulse Ox O2 Del Method O2 Flow Rate 97.9 F 57 L 14 155/46 H 98 Room Air 3 05/05/22 09:10 05/05/22 11:11 05/05/22 09:10 05/05/22 09:10 05/05/22 11:24 05/05/22 09:10 05/01/22 18:52 Oxygen Flow Rate (L/min) [1] 92 Oxygen Flow Rate (L/min) 3 Oxygen Delivery Method [1] Room Air Oxygen Delivery Method Room Air Weight: 131 lb 6.328 oz Body Mass Index (BMI) 23.6 Intake & Output: Intake and Output for Last 24 Hours 05/04/22 05/04/22 05/05/22 00:59 23:59 23:59 Intake Total Output Total 100 / 100 Balance -100 / -100 Lab / Micro Data Result Diagrams: 05/05/22 06:48 05/05/22 06:48 Labs: Laboratory Results - last 24 hr 05/04/22 16:00: Potassium 3.5, Magnesium 3.1 H 05/05/22 06:48: WBC 6.4, RBC 3.43 L, Hgb 10.8 L, Hct 33.4 L, MCV 97.4, MCH 31.5, MCHC 32.3, RDW Std Deviation 49.7 H, RDW Coeff of Broderick 14.3, Plt Count 199, MPV 10.5, Immature Gran % (Auto) 0.300, Neut % (Auto) 57.1, Lymph % (Auto) 28.0, [place] % (Auto) 10.1 H, Eos % (Auto) 3.9, Baso % (Auto) 0.6, Absolute Neuts (auto) 3.7, Absolute Lymphs (auto) 1.80, Nucleated RBC % 0 05/05/22 06:48: Sodium 140, Potassium 3.5, Chloride 104, Carbon Dioxide 31.0, Anion Gap 5, BUN 39 H, Creatinine 1.51 H, Estim Creat Clear Calc 21.54, Est GFR (MDRD) Af Amer 42 L, Est GFR (MDRD) Non-Af 35 L, BUN/Creatinine Ratio 25.8 H, Glucose 98, Calcium 8.6, Phosphorus 1.9 L, Magnesium 2.5, Albumin 2.7 L Micro: Microbiology 05/03/22 00:36 Urine, Midstream Urine Culture - Final Klebsiella pneumoniae sp pneum Mixed Gram Positive Organisms Cardiology Labs/Tests 05/04/22 16:00: Potassium 3.5, Magnesium 3.1 H 05/05/22 06:48: WBC 6.4, RBC 3.43 L, Hgb 10.8 L, Hct 33.4 L, MCV 97.4, MCH 31.5, MCHC 32.3, Plt Count 199, MPV 10.5, Immature Gran % (Auto) 0.300, Neut % (Auto) 57.1, Lymph % (Auto) 28.0, [place] % (Auto) 10.1 H, Eos % (Auto) 3.9, Baso % (Auto) 0.6, Absolute Neuts (auto) 3.7, Nucleated RBC % 0 05/05/22 06:48: Sodium 140, Potassium 3.5, Chloride 104, Carbon Dioxide 31.0, Anion Gap 5, BUN 39 H, Creatinine 1.51 H, Est GFR (MDRD) Af Amer 42 L, Est GFR (MDRD) Non-Af 35 L, BUN/Creatinine Ratio 25.8 H, Glucose 98, Calcium 8.6, Phosphorus 1.9 L, Magnesium 2.5 Rhythm: Sinus rhythm/sinus bradycardia/PACs Physical Exam Const alert, oriented x3 and no apparent distress Orientation / Consciousness: awake HEENT normocephalic, head/scalp atraumatic and hearing grossly normal bilaterally Eyes PERRL, EOMs intact bilaterally, conjunctivae normal and no scleral icterus Neck full ROM, supple and no JVD Carotids: normal carotid upstroke Resp Auscultation: diminished lung sounds bilateral lower (Improved compared to admission) Cardio Rate: bradycardia Rhythm: abnormal rhythm ectopic beats Heart Sounds: S1 normal and S2 normal GI normal to inspection, nondistended, normoactive bowel sounds Extremity Extremity Narrative: Bilateral lower extremity Dave wraps Skin no rashes or lesions noted Psych mental status grossly normal Assessment & Plan Assessment/Plan (1) Abnormal cardiac enzyme level: PLAN: The patient does have abnormal cardiac enzyme levels. It appears they have been somewhat chronically elevated. It appears the consideration has been given that these elevated enzyme levels are related to her history of atrial dysrhythmias with rapid ventricular response. At the moment her current change in her cardiac enzyme level may be related to h er atrial dysrhythmia with rapid ventricular response and her synchronized biphasic DC cardioversion. Her recent noninvasive valuation demonstrated overall preserved left ventricular wall motion and systolic function/LVEF. In the past she has been found to have cardiac catheterization results with angiographically normal-appearing coronary arteries. At the present time she would continue medical management. However, as she is recently cardioverted it would be reasonable not to interrupt her anticoagulation therapy for minimum of 4 to 6 weeks, if she remains in sinus rhythm, to proceed with any other invasive studies barring an urgent/emergent event. (2) Atrial fibrillation with rapid ventricular response: PLAN: Her atrial fibrillation may have been the etiology for her ongoing symptoms and concerns. At the present time she is now back, status post synchronized biphasic DC cardioversion, in sinus rhythm/sinus bradycardia with underlying premature ectopic complexes. Her rate limiting medications will be adjusted. She will continue anticoagulant therapy. If over time she demonstrates evidence of both symptomatic bradycardia and tachycardia compatible with a sick sinus syndrome then she may also need to be considered for permanent pacemaker support. (3) Acute heart failure with preserved ejection fraction (HFpEF): PLAN: She did have findings compatible with acute CHF as demonstrated by her history, exam, and her objective findings with laboratory studies and radiologic findings demonstrating bilateral pleural effusions (right greater than left). At the present time hopefully regaining sinus rhythm will be helpful to improve this overall condition. In the meantime she will continue medical therapy with diuretic therapy. (4) HLD (hyperlipidemia): QUALIFIERS: Hyperlipidemia type: unspecified Qualified Code(s): E 78.5 - Hyperlipidemia, unspecified PLAN: She will continue risk factor evaluation care as deemed appropriate. (5) Essential hypertension: PLAN: Her blood pressure does need to be monitored with adjustment of medications taking into consideration her overall status and her renal insufficiency. (6) Renal insufficiency: PLAN: The patient does appear to have evidence of chronic renal insufficiency. This does need to be taken into consideration with her clinical course and her medication adjustments. Addt'l Comments The patient's case was discussed at length with the patient with her daughter present. This note was generated using a voice recognition system and there may be incorrect words, spelling or punctuation that were not noted when reviewing the office note prior to saving. Procedure Criteria Type of Procedure Procedure Type: Elective Elective Risks - COVID COVID Risk Discussion: The surgeon/proceduralist and patient have discussed in detail the risk of exposure to and/or potential harm posed by the COVID-19 virus with having a surg johnny/procedure at this time versus the risk of delaying the surgery/procedure. It is not possible to know either the risk of delaying the surgery or procedure or chance of getting an infection with perfect accuracy, but a joint decision was made between the patient and the surgeon/proceduralist to proceed at this time with the scheduled surgery/procedure as indicated on the consent form.
--- NOTE | 2022-05-05 13:07 | DCINST_ITS ---
Discharge Instructions Diet Discharge Diet: Low fat / Low cholesterol Activity Discharge Activity: Return to Normal Activity Weight Bearing Status: Weight bearing as tolerated Dressing / Incision Call your doctor if you observe: Shortness of breath, Dizziness, Swelling in the ankles and Chest pain Follow Up Care Test Results: Test results from this visit will be discussed in further detail at your follow- up appointment, if applicable. Discharge Plan Admission Admit Date/Time: 05/01/22 20:33 Primary Reason for Your Visit: acute on chronic heart failure Attending Provider: Sarah Nash Primary Care Provider: Anay Barnard Consulting Providers: Brigido Frey ; Akosua Sewell ; Bina Sewell ; Chong Yeboah Instructions Patient Instructions: ED Heart Failure, Congestive (CHF) Discharge Orders/Prescriptions Prescriptions: Continued omeprazole 40 mg capsule,delayed release(DR/EC) 40 mg PO DAILY levothyroxine 25 mcg tablet 25 mcg PO DAILY brimonidine 0.15 % drops 1 drp ophthalmic (eye) BID benzonatate 100 mg capsule 100 mg PO TID PRN (Reason: Cough) losartan 25 mg tablet 50 mg PO DAILY potassium chloride 10 mEq tablet extended release 10 meq PO DAILY Qty: 90 3RF latanoprost 1 DROP bottle 1 drp EACHEYE QHS Label Comments: EYE DROP atorvastatin 20 MG tablet 20 mg PO QODAY Label Comments: CHOLESTEROL timolol maleate 1 DROP drops 1 drp RIGHT EYE BID Label Comments: EYE DROPS alendronate 70 mg tablet 70 mg PO Q7D@0700 Label Comments: BONES ondansetron 4 mg tablet,disintegrating 4 mg PO Q6H PRN (Reason: nausea and vomiting) Qty: 20 0RF loperamide [Imodium A-D] 2 mg capsule 2 mg PO Q6H PRN (Reason: loose stool) Qty: 20 0RF metoprolol succinate 50 mg tablet extended release 24 hr 50 mg PO BID Xarelto 15 mg tablet 15 mg PO DINNER Rx Instructions: must administer with evening meal furosemide 20 mg tablet 40 mg PO Q OTHER DAY PRN (Reason: water pill) Referrals / Follow Up: Anay Barnard MD [Primary Care Provider] - Within 2 Weeks Brigido Frey MD [Med Staff - Active Staff] - Within 2 Weeks Disposition Disposition (needs filled in before D/C Order can be placed): Home, Self Care
--- NOTE | 2022-05-05 13:11 | DS.PCM_ITS ---
Providers Date of Admission: 05/01/22 Date of Discharge: 05/05/22 Primary Care Physician: Dr. Anay Barnard MD Consultations 05/01/22 21:52 Consult: Cardiology Routine Consulting Provider: Brigido Frey Reason for Consult: afib/hfpef EMERGENT Consult: No Notified: Yes Date Notified: 05/01/22 Time Notified: 21:16 Method of Notification: Verbal 05/02/22 14:08 Consult: Nephrology Routine Consulting Provider: Bina Sewell Reason for Consult: renal insufficiency EMERGENT Consult: No Notified: Yes Date Notified: 05/02/22 Time Notified: 14:09 Method of Notification: Text Reason For Visit: ACUTE DECOMPENSATED HEART FAILURE Diagnosis Discharge Diagnosis (1) Abnormal cardiac enzyme level: Status: Acute Code(s): R74.8 - Abnormal levels of other serum enzymes (2) Atrial fibrillation with rapid ventricular response: Status: Acute Code(s): I48.91 - Unspecified atrial fibrillation (3) Acute heart failure with preserved ejection fraction (HFpEF): Status: Acute Code(s): I50.31 - Acute diastolic (congestive) heart failure (4) HLD (hyperlipidemia): Status: Chronic Code(s): E78.5 - Hyperlipidemia, unspecified Qualifiers: Hyperlipidemia type: unspecified Qualified Code(s): E78.5 - Hyperlipidemia, unspecified (5) Essential hypertension: Status: Chronic Code(s): I10 - Essential (primary) hypertension (6) Renal insufficiency: Status: Acute Code(s): N28.9 - Disorder of kidney and ureter, unspecified Plan #A. fib with RVR * Resolved. Now rate controlled. Had cardioversion in the ED. * Was placed on amiodarone drip and subsequently converted to oral amiodarone. * Cardiology on board. On Xarelto. * still mildly bradycardic with HR in the 50s. * #Acute on chronic heart failure with preserved ejection fraction * lasix drip discontinued yesterday due to increase in Cr * on room air and euvolemic. 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 * improved after lasix drip was discontinued * nephrology on board. * #Hypokalemia and hypomagnesemia * Potassium is 2.6. Patient not tolerating IV potassium so switch her oral potassium replacement and trend. Magnesium is also 1.4. Will replace aggressively and trend. * #Elevated troponins: * Thought to be due to type II non-STEMI from demand ischemia. Stable. Cardiology on board. * Had cardiac cath in the past which showed normal coronaries. * #Hyperlipidemia: On statin Hypertension: coreg held today due to bradycardia. Was hypotensive on admission but this is now resolved. #Hypothyroidism: On Synthroid #Glaucoma: Continue eyedrops- timolol and brimonidine DVT prophylaxis: on xarelto Medications at Discharge Home Medications atorvastatin 20 mg tablet 20 mg PO QODAY Cholesterol 12/06/16 latanoprost 0.005 % eye drops 1 drp EACHEYE QHS eye drops 12/06/16 timolol maleate 0.5 % eye drops 1 drp RIGHT EYE BID eye drops 12/06/16 alendronate 70 mg tablet 70 mg PO Q7D@0700 Bones 09/12/19 benzonatate 100 mg capsule 100 mg PO TID PRN Cough 03/25/22 brimonidine 0.15 % eye drops 1 drp ophthalmic (eye) BID eye health 03/25/22 levothyroxine 25 mcg tablet 25 mcg PO DAILY thyroid 03/25/22 omeprazole 40 mg capsule,delayed release 40 mg PO DAILY gerd 03/25/22 furosemide 20 mg tablet 40 mg PO Q OTHER DAY PRN water pill 03/28/22 loperamide 2 mg capsule (Imodium A-D) 2 mg PO Q6H PRN loose stool #20 caps 04/04/22 ondansetron 4 mg disintegrating tablet 4 mg PO Q6H PRN nausea and vomiting #20 tabs 04/04/22 potassium chloride 10 mEq tablet,extended release 10 meq PO DAILY supplement #90 tabs 04/18/22 losartan 25 mg tablet 50 mg PO DAILY blood pressure 05/01/22 metoprolol succinate 50 mg tablet,extended release 24 hr 50 mg PO BID blood pressure 05/01/22 rivaroxaban 15 mg tablet (Xarelto) 15 mg PO DINNER blood thinner 05/01/22 Hospital Course Operations None Procedures None Summary of Care Provided Minutes Spent on Discharge: 45 Hospital Course: Patient is an 86-year-old female with a past medical history as outlined who was admitted through the ED on 05/01/2022 with a complaint of chest heaviness and shortness of breath as well as worsening lower extremity swelling and rapid heart rate.?She came to the emergency department on 04/04/2022 with similar symptoms to the above and the case was discussed by the emergency department with cardiology.? They recommended increasing her metoprolol to 50 mg p.o. twice daily and continue her Lasix as it was dosed 40 mg every other day.? She was seen in the claim administrator office on the day of admission and outpatient plans for stress test and cardioversion were made for the following week; however the patient felt worse and her daughter decided to bring her to the emergency department. On admission she was found to be in A. fib with RVR with a low blood pressure. She had emergent cardioversion in the ED. Her lactic acid was also elevated and her troponin also trended upwards after cardioversion and BNP was also elevated. Chest x-ray showed vascular congestion. She was admitted and managed for acute on chronic heart failure preserved ejection fraction. She was started on Lasix drip. Elevated troponins were thought to be due to her A. fib with RVR. She remained in sinus rhythm throughout admission. Her shortness of breath gradually resolved and she was weaned off of oxygen. Her creatinine trended upwards with peak of 2.77 and this was thought to be due to her Lasix drip. Lasix drip was therefore discontinued. Her creatinine trended downwards and came down to 1.5 at time of discharge. Patient remained stable and was discharged home on 05/05/2022. She was discharged to continue on her home dose of Lasix and is follow-up with her claim administrator within 1 week. Patient is a and examined prior to discharge. She felt well and had no active complaints. She had an uneventful night and review of systems otherwise negative. Labs and vitals reviewed. Medication reviewed and reconciled. Physical Exam Const alert, oriented x3 and no apparent distress General Appearance: cooperative, comfortable and well kempt Orientation / Consciousness: awake Exam Limitations: no limitations Nutritional Appearance: cachectic HEENT normocephalic, head/scalp atraumatic, hearing grossly normal bilaterally, moist oral mucous membranes and oropharynx normal Mouth: oral and palatal mucosa normal Eyes PERRL, EOMs intact bilaterally and conjunctivae normal Neck no lymphadenopathy and supple Resp normal respiratory effort, no retractions, no use of accessory muscles and clear to auscultation bilaterally Cardio regular rate, regular rhythm, S1 normal heart sound, S2 normal heart sound and no murmurs GI normal to inspection, nondistended, normoactive bowel sounds, soft to palpation, non-tender and non-distended Extremity normal to inspection, full ROM and no clubbing, cyanosis or edema Skin no rashes or lesions noted Neuro oriented x3, CN's II-XII intact bilaterally, moves all extremities and no focal motor deficits Sensorium / Orientation: awake and alert Motor Exam: strength 5/5 throughout Weight / BMI Weight Weight: 131 lb 6.328 oz Body Mass Index (BMI) 23.6 ABG / Lab / Microbiology Data Result Diagrams: 05/05/22 06:48 05/05/22 06:48 Laboratory: Laboratory Results - last 24 hr 05/04/22 16:00: Potassium 3.5, Magnesium 3.1 H 05/05/22 06:48: WBC 6.4, RBC 3.43 L, Hgb 10.8 L, Hct 33.4 L, MCV 97.4, MCH 31.5, MCHC 32.3, RDW Std Deviation 49.7 H, RDW Coeff of Broderick 14.3, Plt Count 199, MPV 10.5, Immature Gran % (Auto) 0.300, Neut % (Auto) 57.1, Lymph % (Auto) 28.0, [place] % (Auto) 10.1 H, Eos % (Auto) 3.9, Baso % (Auto) 0.6, Absolute Neuts (auto) 3.7, Absolute Lymphs (auto) 1.80, Nucleated RBC % 0 05/05/22 06:48: Sodium 140, Potassium 3.5, Chloride 104, Carbon Dioxide 31.0, Anion Gap 5, BUN 39 H, Creatinine 1.51 H, Estim Creat Clear Calc 21.54, Est GFR (MDRD) Af Amer 42 L, Est GFR (MDRD) Non-Af 35 L, BUN/Creatinine Ratio 25.8 H, Glucose 98, Calcium 8.6, Phosphorus 1.9 L, Magnesium 2.5, Albumin 2.7 L Microbiology: Microbiology 05/03/22 00:36 Urine, Midstream Urine Culture - Final Klebsiella pneumoniae sp pneum Mixed Gram Positive Organisms D/C Instructions Discharge Diet: Low fat / Low cholesterol Weight Bearing Status: Weight bearing as tolerated Call your doctor if you observe: Shortness of breath, Dizziness, Swelling in the ankles and Chest pain Meaningful Use Info Meaningful Use Diagnoses (Choose all that apply): CHF CHF VIET/ARB ordered at discharge?: No Reason VIET/ARB not ordered?: Worsening renal disease Documented LVEF (%): 70 Discharge Plan Admission Admit Date/Time: 05/01/22 20:33 Primary Reason for Your Visit: acute on chronic heart failure Attending Provider: Sarah Nash Primary Care Provider: Anay Barnard Consulting Providers: Brigido Frey ; Akosua Sewell ; Bina Sewell ; Chong Yeboah Instructions Patient Instructions: ED Heart Failure, Congestive (CHF) Discharge Orders/Prescriptions Prescriptions: Continued omeprazole 40 mg capsule,delayed release(DR/EC) 40 mg PO DAILY levothyroxine 25 mcg tablet 25 mcg PO DAILY brimonidine 0.15 % drops 1 drp ophthalmic (eye) BID benzonatate 100 mg capsule 100 mg PO TID PRN (Reason: Cough) losartan 25 mg tablet 50 mg PO DAILY potassium chloride 10 mEq tablet extended release 10 meq PO DAILY Qty: 90 3RF latanoprost 1 DROP bottle 1 drp EACHEYE QHS Label Comments: EYE DROP atorvastatin 20 MG tablet 20 mg PO QODAY Label Comments: CHOLESTEROL timolol maleate 1 DROP drops 1 drp RIGHT EYE BID Label Comments: EYE DROPS alendronate 70 mg tablet 70 mg PO Q7D@0700 Label Comments: BONES ondansetron 4 mg tablet,disintegrating 4 mg PO Q6H PRN (Reason: nausea and vomiting) Qty: 20 0RF loperamide [Imodium A-D] 2 mg capsule 2 mg PO Q6H PRN (Reason: loose stool) Qty: 20 0RF metoprolol succinate 50 mg tablet extended release 24 hr 50 mg PO BID Xarelto 15 mg tablet 15 mg PO DINNER Rx Instructions: must administer with evening meal furosemide 20 mg tablet 40 mg PO Q OTHER DAY PRN (Reason: water pill) Referrals / Follow Up: Anay Barnard MD [Primary Care Provider] - 05/07/22 1:00 pm Brigido Frey MD [Med Staff - Active Staff] - 05/21/22 3:00 pm (Appointment on 05/21/22 with Ning SOLIZ.) Disposition Disposition (needs filled in before D/C Order can be placed): Home, Self Care Charges/Coding Visit Charges Inpatient E&M: 49260 Disch Hosp
--- NOTE | 2022-05-05 13:16 | CM.UR ---
Per therapy notes, pt does not qualify for home oxygen at discharge as her sats remained stable. This RN CM to room and pt/daughter state no need for any further therapy at discharge. Pt/daughter voice no further questions/concerns/needs. SStaten RN CM
== END 2022-05-05 15:46 | disposition home or self-care (01) | DRG 308 ==
LOC: ED 20:34 → PCU 21:11
PROVIDERS: Internal Medicine Nephrology; Admitting Provider Internal Medicine; Emergency Provider Emergency Medicine; PCP Internal Medicine; Visit Provider Student in an Organized Health Care Education/Training Program
DX: I48.0 Paroxysmal atrial fibrillation (principal); I50.33 Acute on chronic diastolic (congestive) heart failure; N17.9 Acute kidney failure, unspecified; I13.0 Hypertensive heart and chronic kidney disease with heart failure and stage 1 through stage 4 chronic kidney disease, or unspecified chronic kidney disease; I49.5 Sick sinus syndrome; I95.9 Hypotension, unspecified; N18.32 Chronic kidney disease, stage 3b; E78.5 Hyperlipidemia, unspecified; E03.9 Hypothyroidism, unspecified; E87.6 Hypokalemia; E83.42 Hypomagnesemia; Z79.01 Long term (current) use of anticoagulants; T50.2X5A Adverse effect of carbonic-anhydrase inhibitors, benzothiadiazides and other diuretics, initial encounter; H40.9 Unspecified glaucoma; Z79.890 Hormone replacement therapy; Z87.891 Personal history of nicotine dependence
CPT/HCPCS: 36415; 71045; 76770; 80048; 80053; 80069; 81001; 82570; 83605; 83735; 83880; 84100; 84132; 84156; 84300; 84439; 84443; 84481; 84484; 85025; 87077; 87086; 87088; 87186; 93005; 97110; 97162; 97166; 97530; 97535; 97802; 97803; 99251; 99285; J7030; A4216; G0463; J1940

== ENCOUNTER → 2022-05-01 | Outpatient (CLI) | payer MEDICARE, SELFPAY ==
[2022-05-01 14:59] LABS: Absolute Lymphocyte Count 1.87 X10^3/uL (0.83-4.51); Absolute Neutrophil Count 5.1 X10^3/uL (2.0-7.7); Basophil# 0.05 X10^3/uL; Basophil% 0.7 % (0-1); Eosinophil# 0.11 X10^3/uL; Eosinophils% 1.4 % (0-5); Hematocrit 40.5 % (37-47); Hemoglobin 12.6 g/dL (12.0-15.0); Lymphocyte # 1.87 X10^3/ul (0.83-4.51); Lymphocyte % 24.5 % (19-41); Mean Corp Hgb Conc 31.1 g/dL (32-36); Mean Corpuscular Hgb 31.1 pg (27.0-32.0); Mean Platelet Vol. 10.8 fl (6.2-12.0); Monocyte% 6.6 % (0-10); NRBC Flagged by Analyzer 0 % (0-5); Neutrophil # 5.07 X10^3/uL (2.7-7.7); Neutrophil % 66.5 % (47-70); Platelet Count 192 K/mm3 (150-450); RBC Distribution Width CV 13.8 % (11.6-14.6); RBC Distribution Width SD 49.6 fl (35.1-43.9); Red Blood Count 4.05 M/mm3 (4.2-5.4); White Blood Count 7.6 K/mm3 (4.4-11.0)
[2022-05-01 15:29] LABS: BNP,B-Type NATRIURETIC PEPTIDE 1194.3 pg/mL (0-100)
[2022-05-01 16:11] LABS: Anion Gap 5 (5-15); BUN 42 mg/dL (7-18); BUN/Creat Ratio 20.1 RATIO (10-20); Calcium,Total 9.2 mg/dL (8.5-10.1); Chloride 108 mmol/L (98-107); Creatinine, Serum 2.09 mg/dL (0.55-1.02); EST Glomerular Filtration Rate 24 mL/min (>60); Est Glom Filt Rate - Afr Amer 29 mL/min (>60); Free T3 2.2 pg/mL (2.18-3.98); Glucose 108 mg/dL (74-106); Potassium 3.9 mmol/L (3.5-5.1); Sodium Level 140 mmol/L (136-145); T4 Free Direct 1.49 ng/dL (0.76-1.46); Thyroid Stim Hormone (TSH) 2.16 uIU/mL (0.358-3.74)
== END | disposition home or self-care (01) ==
LOC: LAB 14:23
PROVIDERS: PCP Internal Medicine; Visit Provider Nurse Practitioner Gerontology
DX: I48.91 Unspecified atrial fibrillation (principal); R06.09 Other forms of dyspnea
CPT/HCPCS: 36415; 80048; 83735; 83880; 84439; 84443; 84481; 85025

== ENCOUNTER → 2022-05-13 | Outpatient (CLI) | payer MEDICARE, SELFPAY ==
[2022-05-13 16:43] LABS: Albumin, Serum 3.6 g/dL (3.2-5.0); BUN 22 mg/dL (7-18); BUN/Creat Ratio 15.8 RATIO (10-20); Calcium,Total 9.2 mg/dL (8.5-10.1); Chloride 108 mmol/L (98-107); Creatinine, Serum 1.39 mg/dL (0.55-1.02); EST Glomerular Filtration Rate 38 mL/min (>60); Est Glom Filt Rate - Afr Amer 46 mL/min (>60); Glucose 74 mg/dL (74-106); Phosphorus 2.3 mg/dL (2.5-4.9); Potassium 3.6 mmol/L (3.5-5.1); Sodium Level 138 mmol/L (136-145)
== END | disposition home or self-care (01) ==
LOC: POLAB3 13:51
PROVIDERS: PCP Internal Medicine; Visit Provider Internal Medicine Nephrology
DX: N17.9 Acute kidney failure, unspecified (principal); N18.9 Chronic kidney disease, unspecified
CPT/HCPCS: 36415; 80069

== ENCOUNTER 2022-06-04 09:40 | Emergency (ER) | payer MEDICARE, SELFPAY ==
[2022-06-04 09:41] VITALS: BP 151/90; PULSE 144; RESP 15; TEMP 36.7; O2SAT 98
[2022-06-04 09:42] VITALS: BP 140/93; PULSE 147; RESP 17; TEMP 36.2; O2SAT 100; BMI 51.2
[2022-06-04 10:00] VITALS: O2SAT 97
--- NOTE | 2022-06-04 10:00 | EKG12_ITS ---
Test Reason : A FIB Blood Pressure : / mmHG Vent. Rate : 146 BPM Atrial Rate : 129 BPM P-R Int : 000 ms QRS Dur : 072 ms QT Int : 316 ms P-R-T Axes : 000 053 123 degrees QTc Int : 492 ms Atrial fibrillation Nonspecific ST and T wave abnormality Abnormal ECG Confirmed by ELIZA FERNANDEZ, GLADYS ([id number]), editor magazine [employer] ([id number]) on 06/05/2022 2:03:30 PM Referred By: MAYCOL Confirmed By:ANIYA KAY MD
--- NOTE | 2022-06-04 10:01 | EDS_ITS ---
HPI History of Present Illness Chief Complaint: Palpitations Narrative Narrative: 86-year-old female was diagnosed with atrial fibrillation in January of this year, approximately 4 months ago when she was hospitalized. She was put on Eliquis but had side effects so it was changed to Xarelto. After she was cardioverted, she was placed on carvedilol. She awoke this morning with chest pressure that does not radiate. She denies any nausea or vomiting. No diaphoresis or shortness of breath. She may feel her heart racing at times. This is how she felt when she was in atrial fibrillation. She states she has not missed a dose of her blood thinner in the last 2 weeks. Her propeller tester is Dr. Frey. No exacerbating or alleviating factors. [facility] Medical History Acquired keratoderma Anemia Atrial fibrillation, new onset Bilateral lower extremity edema CKD (chronic kidney disease) stage 4, GFR 15-29 ml/min Dyspnea on exertion Elevated liver enzymes Essential hypertension Essential hypertension Glaucoma Hemorrhage of anus and rectum Hernia HLD (hyperlipidemia) Lymphedema of both lower extremities Near syncope Osteoporosis Palpitations Positive occult stool blood test Stage 3b chronic kidney disease (CKD) Stage 3b chronic kidney disease (CKD) Sweating Syncope Umbilical hernia Home Medications atorvastatin 20 mg tablet 20 mg PO QODAY Cholesterol 12/06/16 [History Last Taken 06/03/22 22:00] latanoprost 0.005 % eye drops 1 drp EACHEYE QHS eye drops 12/06/16 [History Last Taken 06/03/22 22:00] timolol maleate 0.5 % eye drops 1 drp RIGHT EYE BID eye drops 12/06/16 [History Last Taken 06/03/22 22:00] alendronate 70 mg tablet 70 mg PO Q7D@0700 Bones 09/12/19 [History Last Taken 06/02/22 08:00] brimonidine 0.15 % eye drops 1 drp ophthalmic (eye) BID eye health 03/25/22 [History Last Taken 06/03/22 22:00] levothyroxine 25 mcg tablet 25 mcg PO DAILY thyroid 03/25/22 [History Last Taken 06/04/22 08:00] omeprazole 40 mg capsule,delayed release 40 mg PO DAILY gerd 03/25/22 [History Last Taken 06/04/22 08:00] ondansetron 4 mg disintegrating tablet 4 mg PO Q6H PRN nausea and vomiting #20 tabs 04/04/22 [Rx Last Taken Unknown] potassium chloride 10 mEq tablet,extended release 10 meq PO DAILY supplement #90 tabs 04/18/22 [Rx Last Taken 06/03/22 08:00] losartan 25 mg tablet 50 mg PO DAILY blood pressure 05/01/22 [History Last Taken 06/04/22 08:00] rivaroxaban 15 mg tablet (Xarelto) 15 mg PO DINNER blood thinner 05/01/22 [History Last Taken 06/03/22 17:00] carvedilol 3.125 mg tablet 3.125 mg PO BID #60 tabs 05/05/22 [Rx Last Taken 06/04/22 08:00] furosemide 20 mg tablet 20 mg PO Q OTHER DAY water pill 05/21/22 [History Last Taken 06/02/22 08:00] amlodipine 2.5 mg tablet 2.5 mg PO DAILY #30 tabs 05/29/22 [Rx Last Taken 06/03/22 08:00] carvedilol 6.25 mg tablet 6.25 mg PO BID #60 tabs 06/04/22 [Rx Last Taken Unknown] Allergy/AdvReac Type Severity Reaction Status Date / Time amantadine Allergy Rash Verified 06/04/22 09:41 cephalexin Allergy Rash Verified 06/04/22 09:41 erythromycin base Allergy Rash Verified 06/04/22 09:41 hydrochlorothiazide Allergy Rash Verified 06/04/22 09:41 IVP DYE Allergy Rash Uncoded 06/04/22 09:41 Family History Mother CAD (coronary artery disease) Father CAD (coronary artery disease) Brother CAD (coronary artery disease) Sister CAD (coronary artery disease) Surgical History H/O hernia repair History of colonoscopy History of hysteroscopy History of left heart catheterization (02/05/18) s/p left wrist ORIF Tubal ligation status Social History household members: none housing: apartment number of children: 4 Smoking Status: Former smoker quit date: 06/29/76 alcohol intake: never substance use type: does not use caffeine: Yes (Occasionally) ROS ROS ED ROS Narrative Constitutional: No fever, no chills. HEENT: No sore throat. No neck pain. No loss of vision. No rhinorrhea. Cardiovascular: Midsternal chest pressure/chest pain. Occasional palpitations. No pedal edema. Respiratory: No cough, no shortness of breath. Abdominal: No abdominal pain. No nausea. No vomiting. Genitourinary: No dysuria. No hematuria. Musculoskeletal: No myalgias. No arthralgias. Neurologic: No headaches. No dizziness. No lightheadedness. Skin: No rash. No change in color. Psychiatric: No depression. No anxiety. EXAM Physical Exam Narrative Exam Narrative: Afebrile. Vital signs noted. HEENT: Normocephalic. Atraumatic. PERRL, EOMI. Neck soft and supple. No point tenderness or step off. Cardiovascular: Irregularly irregular tachycardia. No murmurs, rubs, or gallops appreciated. Respiratory: No tachypnea. Lungs clear to auscultation bilaterally. Gastrointestinal: Abdomen soft, nontender, with normoactive bowel sounds. No rebound or guarding. Neurological: Awake. Alert. Nonfocal, nonlateralizing. Skin: No rash. Normal color. No pallor. Musculoskeletal: No pedal edema. Full range of motion extremities. Const Vital Signs: 06/04/22 09:42 06/04/22 09:41 06/04/22 09:54 Temperature 97.2 F L 98.0 F Temperature Source Temporal Temporal Pulse Rate 147 H 144 H Respiratory Rate 17 15 Respiratory Effort Normal Non-Labored Respiratory Pattern Normal Blood Pressure 140/93 H 151/90 H Blood Pressure Mean 108 110 Pulse Ox 100 98 Oxygen Delivery Method Room Air Room Air 06/04/22 10:00 Temperature Temperature Source Pulse Rate Respiratory Rate Respiratory Effort Respiratory Pattern Blood Pressure Blood Pressure Mean Pulse Ox 97 Oxygen Delivery Method Room Air Heart Score History: Slightly/Non-Suspicious ECG: Normal Age: >/= 65 years Risk Factors: 1 or 2 Risk Factors Score: 3 MDM MDM MDM Narrative Medical decision making narrative: EKG was obtained upon arrival which was interpreted by myself demonstrates atrial fibrillation with rapid ventricular response at [address] changes. No STEMI. I will attempt rate control with Cardizem. After 10 mg her rate is now in the 70s to 80s. CBC is grossly unremarkable with a normal white count of 7.2, hemoglobin 12.4, hematocrit 40.1 with normal platelet count of 232. She has chronic renal insufficiency with a creatinine of 1.23 and a BUN of 19. Glucose appropriately elevated at 134 with a normal anion gap of 5. High- sensitivity troponin is elevated at 326. However, she has had chronic elevation as high as the 500s even since her last admission last month. Chest x-ray interpreted by myself shows small right pleural effusion. There may be a small infiltrate, but I do not feel antibiotics are indicated as she has no fever, cough, shortness of breath, or elevated white count. I discussed patient with Dr. Marie. I discussed with him the chronic elevation of the troponin it was felt this is secondary to her renal insufficiency. Upon repeat examination, the patient states she feels improved and is resting comfortably. Although she still appears to be in atrial fibrillation, I discussed with Dr. Marie cardioversion, but he did not advise that this be performed because she recently had a cardioversion and she is still having paroxysmal atrial fibrillation. He thought it best to continue rate control. He would like her carvedilol increased to 6.25 mg orally twice a day. Patient will follow-up with Dr. Frey within the next few days. Return instructions to the emergency department were reviewed. I feel she can be discharged safely home with follow-up to cardiology. Disposition is discharged home in stable condition. Lab Data Attestation: I reviewed the patient's lab results. Labs: Laboratory Results - last 24 hr 06/04/22 06/04/22 09:45 09:45 WBC 7.2 RBC 4.11 L Hgb 12.4 Hct 40.1 MCV 97.6 MCH 30.2 MCHC 30.9 L RDW Std Deviation 48.3 H RDW Coeff of Broderick 13.5 Plt Count 232 MPV 10.7 Immature Gran % (Auto) 0.400 Neut % (Auto) 65.1 Lymph % (Auto) 25.9 [place] % (Auto) 6.2 Eos % (Auto) 1.8 Baso % (Auto) 0.6 Absolute Neuts (auto) 4.7 Absolute Lymphs (auto) 1.87 Nucleated RBC % 0 Sodium 139 Potassium 3.6 Chloride 107 Carbon Dioxide 27.0 Anion Gap 5 BUN 19 H Creatinine 1.23 H Estim Creat Clear Calc 26.45 Est GFR (MDRD) Af Amer 53 L Est GFR (MDRD) Non-Af 44 L BUN/Creatinine Ratio 15.4 Glucose 134 H Calcium 9.1 Troponin I High Sens 326 H* Radiography Diagnostic Testing: Clinical Impression(s) from Imaging Studies Chest X-Ray 06/04/22 10:35 IMPRESSION: Right basilar infiltrate with small right pleural effusion. Electronically Signed: Hans Puga MD at 11:18 EST , Discharge Plan Triage Chief Complaint: Palpitations ED Provider: Boby Rucker Dx/Rx/DC Orders Clinical Impression: Atrial fibrillation with RVR, Chronic renal insufficiency, Elevated troponin level not due myocardial infarction Instructions: ED AFIB, ED About Arrhythmias Prescriptions: New carvedilol 6.25 mg tablet 6.25 mg PO BID Qty: 60 0RF Rx Instructions: must administer with a meal/food No Action omeprazole 40 mg capsule,delayed release(DR/EC) 40 mg PO DAILY levothyroxine 25 mcg tablet 25 mcg PO DAILY brimonidine 0.15 % drops 1 drp ophthalmic (eye) BID losartan 25 mg tablet 50 mg PO DAILY potassium chloride 10 mEq tablet extended release 10 meq PO DAILY Qty: 90 3RF latanoprost 1 DROP bottle 1 drp EACHEYE QHS Label Comments: EYE DROP atorvastatin 20 MG tablet 20 mg PO QODAY Label Comments: CHOLESTEROL timolol maleate 1 DROP drops 1 drp RIGHT EYE BID Label Comments: EYE DROPS alendronate 70 mg tablet 70 mg PO Q7D@0700 Label Comments: BONES Rx Instructions: every Thursday ondansetron 4 mg tablet,disintegrating 4 mg PO Q6H PRN (Reason: nausea and vomiting) Qty: 20 0RF Xarelto 15 mg tablet 15 mg PO DINNER Rx Instructions: must administer with evening meal carvedilol 3.125 mg Tablet 3.125 mg PO BID Qty: 60 1RF furosemide 20 mg tablet 20 mg PO Q OTHER DAY amlodipine 2.5 mg tablet 2.5 mg PO DAILY Qty: 30 11RF Primary Care Provider: Anay Barnard Referrals: Anay Barnard MD [Primary Care Provider] - Brigido Frey MD [Med Staff - Active Staff] - 1-2 Days if not improving Activity Restrictions/Additional Instructions: Increase your carvedilol to 6.25 mg twice a day. You can either double up on your existing medication of 3.125 mg, or shrimp picker the new prescription. Continued your Xarelto. Disposition Disposition: Home, Self Care
[2022-06-04] MEDS: dilTIAZem 25 MG/5 ML Vial 10 MG IV BOLUS (10:10)
[2022-06-04 10:33] LABS: Absolute Lymphocyte Count 1.87 X10^3/uL (0.83-4.51); Absolute Neutrophil Count 4.7 X10^3/uL (2.0-7.7); Basophil# 0.04 X10^3/uL; Basophil% 0.6 % (0-1); Eosinophil# 0.13 X10^3/uL; Eosinophils% 1.8 % (0-5); Hematocrit 40.1 % (37-47); Hemoglobin 12.4 g/dL (12.0-15.0); Lymphocyte # 1.87 X10^3/ul (0.83-4.51); Lymphocyte % 25.9 % (19-41); Mean Corp Hgb Conc 30.9 g/dL (32-36); Mean Corpuscular Hgb 30.2 pg (27.0-32.0); Mean Corpuscular Volume 97.6 fL (81-99); Mean Platelet Vol. 10.7 fl (6.2-12.0); Monocyte# 0.45 X10^3/uL; Monocyte% 6.2 % (0-10); NRBC Flagged by Analyzer 0 % (0-5); Neutrophil # 4.69 X10^3/uL (2.7-7.7); Neutrophil % 65.1 % (47-70); Platelet Count 232 K/mm3 (150-450); RBC Distribution Width CV 13.5 % (11.6-14.6); RBC Distribution Width SD 48.3 fl (35.1-43.9); Red Blood Count 4.11 M/mm3 (4.2-5.4); White Blood Count 7.2 K/mm3 (4.4-11.0)
--- NOTE | 2022-06-04 10:35 | RAD_ITS ---
STUDY: X-RAY CHEST REASON FOR EXAM: Female, 86 years old. Chest pain TECHNIQUE: Single AP portable view of the chest. COMPARISON: Comparison is made with prior study dated 05/01/2022. FINDINGS: EKG electrodes are seen. Right basilar infiltrate with small right pleural effusion. Normal size heart. Normal mediastinum and myke. Normal visualized pulmonary arteries. There is atherosclerotic calcification of the aortic arch with tortuosity. There are diffuse degenerative changes of the visualized thoracic spine. Normal visualized ribs, clavicles, and shoulders. There is no demonstrated abnormality of the visualized soft tissue structures of the upper abdomen. RAD/Chest 1 View (Portable) IMPRESSION: Right basilar infiltrate with small right pleural effusion. Electronically Signed: Hans Puga MD at 11:18 EST ,
[2022-06-04 10:45] LABS: Anion Gap 5 (5-15); BUN 19 mg/dL (7-18); BUN/Creat Ratio 15.4 RATIO (10-20); Calcium,Total 9.1 mg/dL (8.5-10.1); Chloride 107 mmol/L (98-107); Creatinine, Serum 1.23 mg/dL (0.55-1.02); EST Glomerular Filtration Rate 44 mL/min (>60); Est Glom Filt Rate - Afr Amer 53 mL/min (>60); Estimated Creatinine Clearance 26.45 ml/min; Glucose 134 mg/dL (74-106); Potassium 3.6 mmol/L (3.5-5.1); Sodium Level 139 mmol/L (136-145); Troponin-I HS 326 pg/mL (3.0-54.0)
[2022-06-04] MEDS: Carvedilol 6.25 MG Tablet PO (12:18)
[2022-06-04 12:42] VITALS: PULSE 86; RESP 16; O2SAT 100
== END 2022-06-04 12:46 | disposition home or self-care (01) ==
PROVIDERS: Emergency Provider Emergency Medicine; PCP Internal Medicine; Visit Provider Emergency Medicine
DX: I48.91 Unspecified atrial fibrillation (principal); N18.4 Chronic kidney disease, stage 4 (severe); R77.8 Other specified abnormalities of plasma proteins; E78.5 Hyperlipidemia, unspecified; I12.9 Hypertensive chronic kidney disease with stage 1 through stage 4 chronic kidney disease, or unspecified chronic kidney disease; Z79.899 Other long term (current) drug therapy; Z79.01 Long term (current) use of anticoagulants; Z87.891 Personal history of nicotine dependence
CPT/HCPCS: 71045; 80048; 84484; 85025; 93005; 96374; 99285; A4216

== ENCOUNTER → 2022-07-09 | Outpatient (CLI) | payer MEDICARE, SELFPAY ==
[2022-07-09 13:16] LABS: Anion Gap 6 (5-15); BUN 26 mg/dL (7-18); BUN/Creat Ratio 19.8 RATIO (10-20); Chloride 108 mmol/L (98-107); Creatinine, Serum 1.31 mg/dL (0.55-1.02); EST Glomerular Filtration Rate 41 mL/min (>60); Est Glom Filt Rate - Afr Amer 50 mL/min (>60); Glucose 89 mg/dL (74-106); Potassium 3.8 mmol/L (3.5-5.1); Sodium Level 141 mmol/L (136-145)
== END | disposition home or self-care (01) ==
LOC: LAB 11:52
PROVIDERS: PCP Internal Medicine; Visit Provider Internal Medicine Cardiovascular Disease
DX: I50.9 Heart failure, unspecified (principal); M79.89 Other specified soft tissue disorders
CPT/HCPCS: 36415; 80048

== ENCOUNTER → 2022-07-16 | Outpatient (CLI) | payer MEDICARE, SELFPAY ==
[2022-07-16 15:40] LABS: Anion Gap 6 (5-15); BUN 29 mg/dL (7-18); BUN/Creat Ratio 19.1 RATIO (10-20); Chloride 110 mmol/L (98-107); Creatinine, Serum 1.52 mg/dL (0.55-1.02); EST Glomerular Filtration Rate 35 mL/min (>60); Est Glom Filt Rate - Afr Amer 42 mL/min (>60); Glucose 107 mg/dL (74-106); Potassium 3.3 mmol/L (3.5-5.1); Sodium Level 143 mmol/L (136-145)
== END | disposition home or self-care (01) ==
LOC: LAB 14:14
PROVIDERS: PCP Internal Medicine; Referring Provider Internal Medicine Cardiovascular Disease; Visit Provider Internal Medicine Cardiovascular Disease
DX: I11.0 Hypertensive heart disease with heart failure (principal); I50.9 Heart failure, unspecified; I48.91 Unspecified atrial fibrillation
CPT/HCPCS: 36415; 80048

== ENCOUNTER → 2022-07-22 | Outpatient (CLI) | payer MEDICARE, SELFPAY ==
[2022-07-22 17:53] LABS: Albumin, Serum 3.8 g/dL (3.2-5.0); BUN 21 mg/dL (7-18); BUN/Creat Ratio 16.5 RATIO (10-20); Calcium,Total 9.4 mg/dL (8.5-10.1); Chloride 112 mmol/L (98-107); Creatinine, Serum 1.27 mg/dL (0.55-1.02); EST Glomerular Filtration Rate 42 mL/min (>60); Est Glom Filt Rate - Afr Amer 51 mL/min (>60); Glucose 96 mg/dL (74-106); Phosphorus 3.3 mg/dL (2.5-4.9); Potassium 4.4 mmol/L (3.5-5.1); Sodium Level 142 mmol/L (136-145)
== END | disposition home or self-care (01) ==
LOC: POLAB3 15:50
PROVIDERS: PCP Internal Medicine; Visit Provider Internal Medicine Nephrology
DX: N18.32 Chronic kidney disease, stage 3b (principal)
CPT/HCPCS: 36415; 80069

== ENCOUNTER → 2022-09-15 | Outpatient (CLI) | payer MEDICARE, SELFPAY | END | disposition home or self-care (01) | LOC: LAB.FUTURE 11:28 | PROVIDERS: PCP Internal Medicine; Visit Provider Internal Medicine Nephrology | DX: I12.9 Hypertensive chronic kidney disease with stage 1 through stage 4 chronic kidney disease, or unspecified chronic kidney disease (principal); N18.32 Chronic kidney disease, stage 3b; D64.9 Anemia, unspecified ==

== ENCOUNTER → 2022-09-15 | Outpatient (CLI) | payer MEDICARE, SELFPAY ==
[2022-09-15 13:03] LABS: Hemoglobin 9.8 g/dL (12.0-15.0)
[2022-09-15 13:40] LABS: Albumin, Serum 3.6 g/dL (3.2-5.0); BUN 28 mg/dL (7-18); BUN/Creat Ratio 18.1 RATIO (10-20); Calcium,Total 8.9 mg/dL (8.5-10.1); Chloride 113 mmol/L (98-107); Creatinine, Serum 1.55 mg/dL (0.55-1.02); EST Glomerular Filtration Rate 34 mL/min (>60); Est Glom Filt Rate - Afr Amer 41 mL/min (>60); Glucose 98 mg/dL (74-106); Potassium 3.8 mmol/L (3.5-5.1); Sodium Level 144 mmol/L (136-145)
[2022-09-15 13:53] LABS: AST(SGOT) 29 U/L (15-37); Alanine Aminotransfer ALT/SGPT 37 U/L (13-56); Albumin, Serum 3.6 g/dL (3.2-5.0); Alkaline Phosphatase 63 U/L (45-117); Anion Gap 7 (5-15); BUN 28 mg/dL (7-18); BUN/Creat Ratio 17.6 RATIO (10-20); Calcium,Total 8.9 mg/dL (8.5-10.1); Chloride 113 mmol/L (98-107); Creatinine, Serum 1.59 mg/dL (0.55-1.02); EST Glomerular Filtration Rate 33 mL/min (>60); Est Glom Filt Rate - Afr Amer 40 mL/min (>60); Globulin 3.6 g/dL (2.2-4.2); Glucose 97 mg/dL (74-106); Potassium 3.8 mmol/L (3.5-5.1); Protein, Total 7.2 g/dL (6.4-8.2); Sodium Level 144 mmol/L (136-145)
[2022-09-17 17:17] LABS: Absolute Lymphocyte Count 1.42 X10^3/uL (0.83-4.51); Absolute Neutrophil Count 4.5 X10^3/uL (2.0-7.7); Basophil# 0.05 X10^3/uL; Basophil% 0.7 % (0-1); Eosinophil# 0.22 X10^3/uL; Eosinophils% 3.3 % (0-5); Hematocrit 30.7 % (37-47); Lymphocyte # 1.42 X10^3/ul (0.83-4.51); Lymphocyte % 21.1 % (19-41); Mean Corp Hgb Conc 32.6 g/dL (32-36); Mean Corpuscular Hgb 32.3 pg (27.0-32.0); Mean Platelet Vol. 11.7 fl (6.2-12.0); Monocyte# 0.57 X10^3/uL; Monocyte% 8.5 % (0-10); NRBC Flagged by Analyzer 0 % (0-5); Neutrophil # 4.46 X10^3/uL (2.7-7.7); Neutrophil % 66.3 % (47-70); Platelet Count 184 K/mm3 (150-450); RBC Distribution Width CV 13.6 % (11.6-14.6); RBC Distribution Width SD 49.6 fl (35.1-43.9); White Blood Count 6.7 K/mm3 (4.4-11.0)
== END | disposition home or self-care (01) ==
LOC: POLAB3 11:28
PROVIDERS: PCP Internal Medicine; Visit Provider Internal Medicine Nephrology
DX: I12.9 Hypertensive chronic kidney disease with stage 1 through stage 4 chronic kidney disease, or unspecified chronic kidney disease (principal); N18.32 Chronic kidney disease, stage 3b; D64.9 Anemia, unspecified
CPT/HCPCS: 36415; 80053; 80069; 83036; 84443; 85018; 85025

== ENCOUNTER 2022-10-31 14:17 | Day surgery (SDC) | payer MEDICARE, SELFPAY ==
[2022-10-31] VITALS (7 sets, daily range): BP systolic 122–186; BP diastolic 43–99; PULSE 48–58; RESP 16–18; TEMP 36.2–36.6; O2SAT 95–99; BMI 23.8
--- NOTE | 2022-10-31 14:34 | PCM.HP.BLA ---
History and Physical Date of Admission: 10/31/22 Chief Complaint: anemia, positive fecal hemoccult Details: BERNADETTE ELIZABETH, is an 86 F who presents to the office today for recurrence of anemia and positive stool hemoccult on 06/26/23, checked by primary care since her hgb had decreased from 12.3 to 11.3 over the prior month. Hgb is now 9.8 as of 09/15/22. Hx of GI bleed in 01/2022; at that time Dr. Collins treated gastritis/telangiectasia and cecal angiodysplastic lesion.?She is no longer on aspirin.? She is on Xarelto for atrial fibrillation.? Per 08/13/22 cardiology note: If there are concerns of gastrointestinal bleeding related issues she may need to discontinue her anticoagulant therapy.? If that occurs then she may need to be considered for tertiary care center evaluation for a potential Watchman type device to minimize her risk of thromboembolic disease from atrial fibrillation and remain off of anticoagulation therapy. She feels well--denies abd pain, nausea, vomiting, diarrhea, constipation, melena, hematochezia. Denies SOB, fatigue, lightheadedness. She remains on PPI therapy.? ROS Const Constitutional: No fatigue ENT ENT: No difficulty swallowing Gastro GI: No abdominal pain, belching, bloating, change in bowel habits, change in stool character, coffee ground emesis, constipation, cramping, diarrhea, heartburn, difficulty swallowing, feeling full early, excessive flatus, incontinent of stools, Vomiting blood/hematemesis, Blood in stool, loose stools, Black,tarry stools, nausea/dyspepsia, pain with swallowing, vomiting or other Musc Musculoskeletal: No joint pain Skin Skin: No yellowing of the eye or itchy eyes Psych Psychiatric: No anxiety and No depression Endo Endocrine: No fatigue Aller/Imm Allergy/Immunologic: No itchy eyes Phong/Lymp Hematologic/Lymphatic: Positive for easy bruising; No easy bleeding Exam Const General: cooperative, healthy appearing and comfortable Nutritional Appearance: average body habitus Orientation: alert, awake and oriented x3 HENMT Head: normal to inspection Eyes Conjunctivae: conjunctivae normal Sclera: sclerae normal Resp Effort & Inspection: normal respiratory effort GI Inspection: normal to inspection Skin General: no rashes or lesions noted Psych Mood: congruent mood Quality Reporting Tobacco Screening ([facility] 138) Smoking Status: Former smoker Assessment and Plan Assessment and Plan (1) Anemia: ?Status:?Acute ?Plan: 86 yr old female with hx GI bleed, on xarelto for atrial fibrillation, anemia with decreasing hgb, positive stool hemoccult. Will schedule her for first available EGD which is in 4-5 wks, will check CBC in 2 wks. Reviewed when to call/present to ED. (2) Positive occult stool blood test: ?Status:?Acute ?Plan: as above ? ? ? Orders: Orders CBC W/Diff, Automated Today D64.9 - Anemia, unspecified ? I have examined the patient and the H&P has been reviewed. There are no clinical changes since date of exam.
[2022-10-31] MEDS: Lactated Ringers 1,000 ML 15 ML IV (14:59)
--- NOTE | 2022-10-31 15:30 | EGD_PTH ---
PATIENT: BERNADETTE ELIZABETH LOC: EN U#:[id number] AGE/SX: 86/F ROOM: RE10/31/[address]: Dr. Yuriy Colilns DO : 1935 BED: DIS: 10/31/2022 SPEC #: [id number] RECD: 10/31/22 16:38 STATUS: ALAINA REPat #: [id number] ARGELIA: 10/31/22 15:[address]: Yuriy Collins DEPT: SURGICAL PATHOLOGY RECD BY: Callie Frias ENTERED: 11/03/22 10:06 SP TYPE: EGD BIOPSY OT DR: Dr. 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 AM:ray 11/04/2022 MICROSCOPIC DESCRIPTION Slides are reviewed. GROSS DESCRIPTION Received in fixative is one container labeled with the patient's name and designated duodenum biopsy. The specimen consists of one irregular fragment of light rao soft tissue that measures 0.4 x 0.3 x 0.1 cm. The specimen is totally submitted in one cassette. / SJ:ray 11/03/2022 TC:5 CPT: 66708
--- NOTE | 2022-10-31 15:36 | OP.EGD_ITS ---
Patient Name: Isis Stoner Procedure Date: 10/31/2022 3:00 PM Date of : 1935 Age: 86 Procedure: Upper GI endoscopy Indications: Iron deficiency anemia Providers: Yuriy Collins DO Referring MD: Anay Barnard Medicines: Monitored Anesthesia Care Patient Profile: This is an 86 year old female. Refer to note in patient chart for documentation of history and physical. Patient has symptoms of chronic dyspepsia and chronic nausea. Complications: No immediate complications. Procedure: Pre-Anesthesia Assessment: - Prior to the procedure, a History and Physical was performed, and patient medications and allergies were reviewed. The patient is competent. The risks and benefits of the procedure and the sedation options and risks were discussed with the patient. All questions were answered and informed consent was obtained. Patient identification and proposed procedure were verified by the physician in the pre-procedure area. Mental Status Examination: alert and oriented. Airway Examination: normal oropharyngeal airway and neck mobility. Respiratory Examination: clear to auscultation. CV Examination: normal. Prophylactic Antibiotics: The patient does not require prophylactic antibiotics. Prior Anticoagulants: The patient has taken no previous anticoagulant or antiplatelet agents. ASA Grade Assessment: II - A patient with mild systemic disease. After reviewing the risks and benefits, the patient was deemed in satisfactory condition to undergo the procedure. The anesthesia plan was to use monitored anesthesia care (MAC). Immediately prior to administration of medications, the patient was re-assessed for adequacy to receive sedatives. The heart rate, respiratory rate, oxygen saturations, blood pressure, adequacy of pulmonary ventilation, and response to care were monitored throughout the procedure. The physical status of the patient was re-assessed after the procedure. After obtaining informed consent, the endoscope was passed under direct vision. Throughout the procedure, the patient's blood pressure, pulse, and oxygen saturations were monitored continuously. The gastroscope was introduced through the mouth, and advanced to the second part of duodenum. The upper GI endoscopy was accomplished with ease. The patient tolerated the procedure well. Scope In: 3:19:49 PM Scope Out: 3:27:01 PM Total Procedure Duration Time 0 hours 7 minutes 12 seconds Findings: 3 mm angiodysplastic lesion was seen in the proximal esophagus. It was treated with APC. A single 5 mm bleeding angiodysplastic lesion was found on the greater curvature of the stomach. Coagulation for hemostasis using heater probe was successful. Estimated blood loss was minimal. A small hiatal hernia was present. Patchy moderately friable mucosa without active bleeding was found in the duodenal bulb. Biopsies were taken with a cold forceps for histology. Verification of patient identification for the specimen was done. Estimated blood loss was minimal. Two 5 mm angiodysplastic lesions with bleeding were found in the third portion of the duodenum. Coagulation for hemostasis using heater probe was successful. Estimated blood loss was minimal. 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 Treated with a heater probe. - Small hiatal hernia. - Friable duodenal mucosa. Biopsied. - Two bleeding angiodysplastic lesions in the duodenum. Treated with a heater probe. Recommendation: - Discharge patient to home. - Resume previous diet. - Continue present medications. - Await pathology results. Procedure Code(s): --- Professional --- 87701, 59, Esophagogastroduodenoscopy, flexible, transoral; with control of bleeding, any method 17221, Esophagogastroduodenoscopy, flexible, transoral; with biopsy, single or multiple CPT copyright 2017 [employer]. All rights reserved. The codes documented in this report are preliminary and upon composition roll maker and cutter review may be revised to meet current compliance requirements. Yuriy Collins DO 10/31/2022 3:35:53 PM This report has been signed electronically. Number of Addenda: 0 Note Initiated On: 10/31/2022 3:00 PM
--- NOTE | 2022-10-31 15:37 | OP.CCLET_ITS ---
10/31/2022 Anay Barnard [address] [place] [address] Re : Upper GI endoscopy procedure for Isis Stoner Dear Dr. Barnard This procedure was performed on Monday, October 31, 2022. My impressions and recommendations are as follows: Impressions : - A single bleeding angiodysplastic lesion in the stomach. Treated with a heater probe. - Small hiatal hernia. - Friable duodenal mucosa. Biopsied. - Two bleeding angiodysplastic lesions in the duodenum. Treated with a heater probe. Recommendations : - Discharge patient to home. - Resume previous diet. - Continue present medications. - Await pathology results. My findings are described in the full procedure note, which is enclosed. If I can be of further assistance, please feel free to contact me at . Sincerely, Yuriy Collins, 10/31/2022 3:35:53 PM This report has been signed electronically.
== END 2022-10-31 16:47 | disposition home or self-care (01) ==
LOC: EN 14:18 → AC 14:22
PROVIDERS: PCP Internal Medicine; Referring Provider Internal Medicine; Visit Provider Internal Medicine Gastroenterology
PROC: 0DJ08ZZ Inspection of Upper Intestinal Tract, Via Natural or Artificial Opening Endoscopic (ICD-10-PCS; CPT 43235; principal; 2022-10-31 15:25)
DX: I48.91 Unspecified atrial fibrillation (principal); I13.0 Hypertensive heart and chronic kidney disease with heart failure and stage 1 through stage 4 chronic kidney disease, or unspecified chronic kidney disease; I50.9 Heart failure, unspecified; N18.32 Chronic kidney disease, stage 3b; Z87.891 Personal history of nicotine dependence; D50.0 Iron deficiency anemia secondary to blood loss (chronic); K44.9 Diaphragmatic hernia without obstruction or gangrene; Z79.01 Long term (current) use of anticoagulants; K31.9 Disease of stomach and duodenum, unspecified; Z79.899 Other long term (current) drug therapy; Z79.890 Hormone replacement therapy; E03.9 Hypothyroidism, unspecified
CPT/HCPCS: 43239; 43255; 88305; J7120; J2405

== ENCOUNTER → 2022-11-10 | Outpatient (CLI) | payer MEDICARE, SELFPAY ==
[2022-11-10 12:45] LABS: Absolute Lymphocyte Count 1.91 X10^3/uL (0.83-4.51); Absolute Neutrophil Count 3.3 X10^3/uL (2.0-7.7); Basophil# 0.05 X10^3/uL; Basophil% 0.8 % (0-1); Eosinophil# 0.32 X10^3/uL; Eosinophils% 5.2 % (0-5); Hematocrit 34.9 % (37-47); Hemoglobin 11.1 g/dL (12.0-15.0); Lymphocyte # 1.91 X10^3/ul (0.83-4.51); Lymphocyte % 31.1 % (19-41); Mean Corp Hgb Conc 31.8 g/dL (32-36); Mean Corpuscular Hgb 31.1 pg (27.0-32.0); Mean Corpuscular Volume 97.8 fL (81-99); Mean Platelet Vol. 10.3 fl (6.2-12.0); Monocyte# 0.58 X10^3/uL; Monocyte% 9.4 % (0-10); NRBC Flagged by Analyzer 0 % (0-5); Neutrophil # 3.28 X10^3/uL (2.7-7.7); Neutrophil % 53.3 % (47-70); Platelet Count 190 K/mm3 (150-450); RBC Distribution Width CV 12.5 % (11.6-14.6); RBC Distribution Width SD 44.7 fl (35.1-43.9); Red Blood Count 3.57 M/mm3 (4.2-5.4); White Blood Count 6.2 K/mm3 (4.4-11.0)
== END | disposition home or self-care (01) ==
LOC: LAB 12:09
PROVIDERS: PCP Internal Medicine; Referring Provider Nurse Practitioner Adult Health; Visit Provider Nurse Practitioner Adult Health
DX: D64.9 Anemia, unspecified (principal)
CPT/HCPCS: 36415; 85025

== ENCOUNTER → 2022-11-19 | Outpatient (CLI) | payer MEDICARE, SELFPAY ==
[2022-11-19 13:48] LABS: Albumin, Serum 3.5 g/dL (3.2-5.0); BUN 32 mg/dL (7-18); BUN/Creat Ratio 21.1 RATIO (10-20); Calcium,Total 8.6 mg/dL (8.5-10.1); Chloride 112 mmol/L (98-107); Creatinine, Serum 1.52 mg/dL (0.55-1.02); EST Glomerular Filtration Rate 35 mL/min (>60); Est Glom Filt Rate - Afr Amer 42 mL/min (>60); Glucose 100 mg/dL (74-106); Phosphorus 2.8 mg/dL (2.5-4.9); Potassium 3.9 mmol/L (3.5-5.1); Sodium Level 140 mmol/L (136-145)
== END | disposition home or self-care (01) ==
LOC: POLAB3 11:08
PROVIDERS: PCP Internal Medicine; Visit Provider Internal Medicine Nephrology
DX: N18.32 Chronic kidney disease, stage 3b (principal)
CPT/HCPCS: 36415; 80069

== ENCOUNTER → 2023-04-07 | Outpatient (CLI) | payer MEDICARE, SELFPAY ==
[2023-04-07 12:19] LABS: Hematocrit 32.3 % (37-47); Hemoglobin 10.9 g/dL (12.0-15.0)
[2023-04-07 13:30] LABS: Albumin, Serum 3.4 g/dL (3.2-5.0); BUN 32 mg/dL (7-18); BUN/Creat Ratio 19.6 RATIO (10-20); Calcium,Total 8.9 mg/dL (8.5-10.1); Chloride 116 mmol/L (98-107); Creatinine, Serum 1.63 mg/dL (0.55-1.02); EST Glomerular Filtration Rate 32 mL/min (>60); Est Glom Filt Rate - Afr Amer 38 mL/min (>60); Glucose 108 mg/dL (74-106); Phosphorus 2.7 mg/dL (2.5-4.9); Potassium 4.3 mmol/L (3.5-5.1); Sodium Level 143 mmol/L (136-145)
== END | disposition home or self-care (01) ==
LOC: POLAB3 11:45
PROVIDERS: PCP Internal Medicine; Visit Provider Internal Medicine Nephrology
DX: N18.32 Chronic kidney disease, stage 3b (principal); D64.9 Anemia, unspecified
CPT/HCPCS: 36415; 80069; 85014; 85018

== ENCOUNTER 2023-07-13 11:09 | Inpatient (IN) | payer MEDICARE, SELFPAY ==
[2023-07-13] VITALS (9 sets, daily range): BP systolic 116–186; BP diastolic 49–68; PULSE 52–67; RESP 16–20; TEMP 35.7–36.9; O2SAT 86–98; BMI 25.4; BMI 25.3
--- NOTE | 2023-07-13 11:17 | EKG12_ITS ---
Test Reason : SYNCOPE Blood Pressure : / mmHG Vent. Rate : 052 BPM Atrial Rate : 052 BPM P-R Int : 192 ms QRS Dur : 088 ms QT Int : 462 ms P-R-T Axes : 080 045 065 degrees QTc Int : 429 ms Sinus bradycardia Otherwise normal ECG Confirmed by TC FERNANDEZ, MALIK ([id number]), photographic editor LUH ASHLEY ([id number]) on 07/15/2023 9:08:27 AM Referred By: Confirmed By:MALIK MONTEZ MD
--- NOTE | 2023-07-13 11:17 | CT_ITS ---
STUDY: CT BRAIN WITHOUT CONTRAST REASON FOR EXAM: Female, 87 years old. Head injury due to syncopal episode. Patient is on anticoagulants. RADIATION DOSAGE (If Supplied By Facility): CTDIvol = ( 44.99 ) mGy, DLP = ( 762.36 ) mGycm TECHNIQUE: Transaxial CT imaging of the brain was performed without administration of intravenous contrast material. Individualized dose optimization techniques were used for this CT. COMPARISON: No relevant priors. FINDINGS: Normal soft tissue structures. There is hyperostosis frontalis internus. There is mild cerebral atrophy with widening of the extra-axial spaces and ventricular dilatation. Normal white matter tracts of the cerebral hemispheres. Normal basal ganglia and thalami. Normal brainstem. Normal cerebellum. There is no intracranial hemorrhage. There are no findings of an acute ischemic infarction. Atherosclerotic calcific plaques of the cavernous portions of the internal carotid arteries bilaterally. Normal visualized paranasal sinuses. CT/Brain/Head without Contrast IMPRESSION: Chronic involutional changes of the brain. Electronically Signed: Hans Puga MD at 12:24 EST ,
--- NOTE | 2023-07-13 11:20 | EDS_ITS ---
<Statement entered by Margie Kahn MD - 07/13/23 16:25> I have personally performed a face to face assessment of the patient and have reviewed the MOSHE Note. Patient presents via EMS after syncopal episode at home. Patient states she started feeling warm, dizzy, nauseated while sitting at the kitchen table. She got up and took some medicine and walk down the [place] where she fell. She is not sure that she completely passed out. She called her daughter for help. Daughter was able to get her up into the commode where she had another episode of decreased responsiveness slumping over and hitting the wall. Patient only complains of pain to her bilateral feet stated that they got caught underneath her when she fell. She denies chest pain or shortness of breath. She is noted to be mildly hypoxic on arrival. Patient sitting upright in bed no acute distress. Head and neck examination unremarkable. Heart regular rate and rhythm. Lung sounds are clear. Abdomen is soft and nontender. Neuro exam reveals no focal deficits. Lower extremity examination is performed. I remove her shoes and socks. She has no edema, erythema, or ecchymosis. There is no focal tenderness with palpation over her feet. Good distal pulses noted. CT scan of the head reveals chronic changes. Chest x-ray reveals no obvious abnormalities. Lab work reveals mild anemia near her baseline. She has chronic renal failure again near her baseline. Patient was taken off of oxygen but did drop again to 86%. Hospitalist contacted for admission given her syncope, hypoxia, and weakness. HPI History of Present Illness Chief Complaint: Syncope Narrative Narrative: 87-year-old female with PMH of HTN, HLD, CKD, A-fib on Xarelto, GI bleed, anemia presents after syncopal episode. She was walking down her hallway and felt lightheaded and fell before she could make it to the bathroom. She states she is not sure if she passed out but she texted her daughter for help. Her daughter lives on her property and came over and assisted her to the toilet but while sitting there she slumped over and passed out against the wall for 1 to 2 minutes. She appears pale and when she checked her heart rate it was in the 40s and then would not read. Patient complains of nausea and was given Zofran by EMS. She reports compliance with Xarelto. She has had normal p.o. intake, no fever or chills, chest pain or shortness of breath, black or bloody stools, or urinary symptoms. Of note daughter reports she was started on terazosin due to elevated blood pressure at the beginning of June. She has been taking readings at home and they are labile anywhere from 103 to 200 SBP. [facility] Medical History (Updated 07/13/23 @ 12:53 by SIOBHAN Stewart) Acquired keratoderma Anemia Atrial fibrillation, new onset Bilateral lower extremity edema Cardiology follow-up encounter CKD (chronic kidney disease) stage 4, GFR 15-29 ml/min Dyspnea on exertion Elevated liver enzymes Essential hypertension Essential hypertension Former smoker Gastric reflux Glaucoma Hemorrhage of anus and rectum Hernia History of CHF (congestive heart failure) History of echocardiogram History of edema History of stress test HLD (hyperlipidemia) Lymphedema of both lower extremities Near syncope Osteoporosis Palpitations Paroxysmal atrial fibrillation Pneumonia (03/19/22) Positive occult stool blood test Post-menopausal Stage 3b chronic kidney disease (CKD) Stage 3b chronic kidney disease (CKD) Sweating Syncope Thyroid disease Umbilical hernia Wears glasses Home Medications atorvastatin 20 mg tablet 20 mg PO QODAY Cholesterol 12/06/16 [History Last Taken 06/03/22 22:00] latanoprost 0.005 % eye drops 1 drp EACHEYE QHS eye drops 12/06/16 [History Last Taken 06/03/22 22:00] timolol maleate 0.5 % eye drops 1 drp RIGHT EYE BID eye drops 12/06/16 [History Last Taken 06/03/22 22:00] brimonidine 0.15 % eye drops 1 drp ophthalmic (eye) BID eye health 03/25/22 [History Last Taken 06/03/22 22:00] levothyroxine 25 mcg tablet 25 mcg PO DAILY thyroid 03/25/22 [History Last Taken 10/31/22] omeprazole 40 mg capsule,delayed release 40 mg PO DAILY gerd 03/25/22 [History L ast Taken 10/31/22] losartan 50 mg tablet 50 mg PO BID #180 tabs 07/11/22 [Rx Last Taken 10/31/22] hydralazine 10 mg tablet 10 mg PO TID 09/24/22 [History Last Taken 10/31/22] potassium chloride 10 mEq capsule,extended release 20 meq (2 x 10 mEq) PO DAILY #180 caps 02/17/23 [Rx Last Taken Unknown] rivaroxaban 15 mg tablet (Xarelto) 15 mg PO DINNER blood thinner #30 tabs 04/22/23 [Rx Last Taken Unknown] cholecalciferol (vitamin D3) 50 mcg (2,000 unit) capsule 50 mcg PO DAILY 05/08/23 [History Last Taken Unknown] furosemide 20 mg tablet 20 mg PO Q OTHER DAY 05/08/23 [History Last Taken Unknown] mecobalamin (vitamin B12) 1,000 mcg chewable tablet 1,000 mcg PO DAILY 05/08/23 [History Last Taken Unknown] carvedilol 12.5 mg tablet 12.5 mg PO BID #180 tabs 05/25/23 [Rx Last Taken Unknown] denosumab 60 mg/mL subcutaneous syringe (Prolia) 60 mg subcut B2RTHASR #1 mL 06/05/23 [Rx Last Taken Unknown] Allergy/AdvReac Type Severity Reaction Status Date / Time amantadine Allergy Rash Verified 07/13/23 11:17 cephalexin Allergy Rash Verified 07/13/23 11:17 erythromycin base Allergy Rash Verified 07/13/23 11:17 hydrochlorothiazide Allergy Rash Verified 07/13/23 11:17 Iodinated Contrast Media Allergy Rash Verified 07/13/23 11:17 amlodipine [From Norvas] AdvReac Other Verified 07/13/23 11:17 Family History Mother CAD (coronary artery disease) Father CAD (coronary artery disease) Brother CAD (coronary artery disease) Sister CAD (coronary artery disease) Surgical History H/O hernia repair History of cardiac catheterization History of colonoscopy History of hysteroscopy History of left heart catheterization (02/05/18) Hx of esophagogastroduodenoscopy s/p left wrist ORIF Tubal ligation status Social History household members: none housing: apartment number of children: 4 Smoking Status: Former smoker quit date: 06/29/76 alcohol intake: never substance use type: does not use caffeine: Yes (Occasionally) ROS ROS ED ROS Narrative Constitutional: Negative for fever, chills, malaise. CVS: Positive for syncope. Negative for palpitations, chest pain. Respiratory: Negative for shortness of breath, cough. GI: Positive for nausea. Negative for abdominal pain, vomiting, diarrhea, constipation, melena, hematochezia. : Negative for dysuria, frequency. Neuro: Negative for headache. EXAM Physical Exam Narrative Exam Narrative: CONST: Patient sitting in no acute distress. EYES: Normal inspection. PERRL, EOMI. ENT: Normal inspection, moist mucous membranes. NECK: Normal inspection. RESP: No respiratory distress, CTAB. CVS: Bradycardic with regular rhythm, no murmur, no gallop. ABD: Soft and nontender, no guarding or rebound, nondistended. SKIN: Pale, no rash, warm, dry, intact. EXTREMITIES: Normal appearance, no pedal edema. NEURO: Oriented x4. PSYCH: Normal affect. Const Vital Signs: 07/13/23 11:11 07/13/23 11:24 07/13/23 11:34 Temperature 96.3 F L Temperature Source Temporal Pulse Rate 56 L 52 L Respiratory Rate 16 Respiratory Pattern Normal Blood Pressure 147/57 H 147/57 H Blood Pressure Mean 87 87 Pulse Ox 86 93 Oxygen Delivery Method Room Air Nasal Cannula Oxygen Flow Rate (L/min) 2 07/13/23 13:07 Temperature Temperature Source Pulse Rate 57 L Respiratory Rate 20 H Respiratory Pattern Blood Pressure 134/68 H Blood Pressure Mean 90 Pulse Ox 98 Oxygen Delivery Method Nasal Cannula Oxygen Flow Rate (L/min) 2 MDM MDM MDM Narrative Medical decision making narrative: History gathered from: Patient and daughter Patient had proceeding lightheaded symptoms and a syncopal episode and now has nausea. She appears pale. BP 147/57, sinus bradycardia around 55 bpm, 86% on room air was placed on 2 L O2. Heart is regular with no murmurs. Lungs clear. Abdomen soft and nontender. Neurologically intact. WBC is 5.4. Hemoglobin 10.0 stable. Electrolytes are within normal limits, BUN 29, creatinine 1.70 at baseline. Glucose 165 with normal CO2 and anion gap. EKG is sinus bradycardia with no acute ischemic changes. Troponin is 116, delta pending. This troponin is lower than on her previous levels and she has no chest pain or shortness of breath so I do not suspect ACS. She still remains hypoxic on room air requiring 2 L nasal cannula. CXR is negative and viral swab for COVID/flu/RSV negative. Not sure the etiology of her hypoxia but with syncopal episode and continued oxygen demand she will be admitted. Case was discussed with the hospitalist who is also ordering a CT chest to rule out additional causes of hypoxia. Patient was admitted. Differential: Hypotension, cardiac arrhythmia, acute on chronic anemia, ACS Lab Data Attestation: I reviewed the patient's lab results. Labs: Laboratory Results - last 24 hr 07/13/23 11:35 WBC 5.4 RBC 3.21 L Hgb 10.0 L Hct 30.9 L MCV 96.3 MCH 31.2 MCHC 32.4 RDW Std Deviation 43.3 RDW Coeff of Broderick 12.4 Plt Count 179 MPV 9.6 Immature Gran % (Auto) 0.400 Neut % (Auto) 62.0 Lymph % (Auto) 28.3 [place] % (Auto) 6.3 Eos % (Auto) 2.6 Baso % (Auto) 0.4 Absolute Neuts (auto) 3.3 Absolute Lymphs (auto) 1.52 Nucleated RBC % 0 Sodium 142 Potassium 3.8 Chloride 112 H Carbon Dioxide 24.0 Anion Gap 6 BUN 29 H Creatinine 1.70 H Est GFR (MDRD) Af Amer 37 L Est GFR (MDRD) Non-Af 30 L BUN/Creatinine Ratio 17.1 Glucose 165 H Calcium 8.8 Troponin I High Sens 116 H Radiography Diagnostic Testing: Clinical Impression(s) from Imaging Studies Brain CT 07/13/23 11:17 IMPRESSION: Chronic involutional changes of the brain. Electronically Signed: Hans Puga MD at 12:24 EST , Chest X-Ray 07/13/23 12:00 IMPRESSION: Mild elevation of the left hemidiaphragm. No acute infiltrate is seen. Electronically Signed: Hans Puga MD at 12:35 EST , ED attending interpretation of 1-view chest x-ray shows normal heart size, no acute infiltrate, edema, or effusion. EKG Initial EKG: Attestation: I personally reviewed and interpreted this EKG as follows: Comments: Sinus bradycardia at 52 bpm Normal intervals, no acute ischemic changes Discharge Plan Triage Chief Complaint: Syncope ED Midlevel Provider: Pili Chris ED Provider: Margie Kahn Dx/Rx/DC Orders Clinical Impression: Syncope, Anemia, Chronic kidney disease, Hypoxia Primary Care Provider: Anay Barnard [facility] Legal Valve Liner Rubber Reflex Medical hold order details:: IF a medical hold is selected below, a suggested order for a MEDICAL HOLD will reflex upon signing the document. Next of kin: [place] law dictates a PRIORITY LIST for identifying legal decision-maker/legal next of kin in the following order (LNOK): 1st: The patient?s legal guardian, if any 2nd: The patient's spouse (if status is questionable, consult Risk Management) 3rd: The patient?s adult child(koby) (majority, if multiple children) 4th: The patient?s parents 5th: The patient?s adult siblings (majority, if multiple children siblings)
[2023-07-13 11:42] LABS: Absolute Lymphocyte Count 1.52 X10^3/uL (0.83-4.51); Absolute Neutrophil Count 3.3 X10^3/uL (2.0-7.7); Basophil# 0.02 X10^3/uL; Basophil% 0.4 % (0-1); Eosinophil# 0.14 X10^3/uL; Eosinophils% 2.6 % (0-5); Hematocrit 30.9 % (37-47); Lymphocyte # 1.52 X10^3/ul (0.83-4.51); Lymphocyte % 28.3 % (19-41); Mean Corp Hgb Conc 32.4 g/dL (32-36); Mean Corpuscular Hgb 31.2 pg (27.0-32.0); Mean Corpuscular Volume 96.3 fL (81-99); Mean Platelet Vol. 9.6 fl (6.2-12.0); Monocyte# 0.34 X10^3/uL; Monocyte% 6.3 % (0-10); NRBC Flagged by Analyzer 0 % (0-5); Neutrophil # 3.33 X10^3/uL (2.7-7.7); Platelet Count 179 K/mm3 (150-450); RBC Distribution Width CV 12.4 % (11.6-14.6); RBC Distribution Width SD 43.3 fl (35.1-43.9); Red Blood Count 3.21 M/mm3 (4.2-5.4); White Blood Count 5.4 K/mm3 (4.4-11.0)
--- NOTE | 2023-07-13 12:00 | RAD_ITS ---
STUDY: X-RAY CHEST REASON FOR EXAM: Female, 87 years old. Hypoxia TECHNIQUE: Single AP portable view of the chest. COMPARISON: Comparison is made with prior study dated June 04, 2022. FINDINGS: EKG electrodes are seen. Mild elevation of the left hemidiaphragm. No acute pulmonary infiltrate is seen. There is no demonstrated pleural abnormality. Normal size heart. Normal mediastinum and myke. Normal visualized pulmonary arteries. There is atherosclerotic calcification of the aortic arch with tortuosity. There are degenerative changes of the visualized thoracic spine. Normal visualized ribs, clavicles, and shoulders. There is no demonstrated abnormality of the visualized soft tissue structures of the upper abdomen. RAD/Chest 1 View (Portable) IMPRESSION: Mild elevation of the left hemidiaphragm. No acute infiltrate is seen. Electronically Signed: Hans Puga MD at 12:35 EST ,
[2023-07-13 12:02] LABS: Anion Gap 6 (5-15); BUN 29 mg/dL (7-18); BUN/Creat Ratio 17.1 RATIO (10-20); Calcium,Total 8.8 mg/dL (8.5-10.1); Chloride 112 mmol/L (98-107); EST Glomerular Filtration Rate 30 mL/min (>60); Est Glom Filt Rate - Afr Amer 37 mL/min (>60); Glucose 165 mg/dL (74-106); Potassium 3.8 mmol/L (3.5-5.1); Sodium Level 142 mmol/L (136-145); Troponin-I HS 116 pg/mL (3.0-54.0)
--- OUTSIDE RECORDS SUMMARY | 2023-07-13 12:56 | XMS RPT_ITS | CCD ---
Author Name Unknown Address [address] [place] [address] Organization [facility] Care Team Providers Care Getter Filler Name Role Phone Evon FERNANDEZ, Татьяна Primary Care Provider Татьяна Barnard MD Primary Care Provider [phone] Cynthia, Fredis S Unavailable Friend DO, Yuriy B Unavailable GANTA, ТАТЬЯНА Primary Care Unavailable CYNTHIA, FREDIS S Referring Unavailable MAURA GILES Attending Unavailable Cynthia, Fredis S Unavailable Friend DO Yuriy B Unavailable Cynthia FERNANDEZ, Fredis S Unavailable OLDER, JESUSITA Attending Unavailable GANTA, ТАТЬЯНА Primary Care Unavailable GANTA, ТАТЬЯНА Primary Care Unavailable GANTA, ТАТЬЯНА Referring Unavailable OLDER, JESUSITA Attending Unavailable GANTA, ТАТЬЯНА Primary Care Unavailable OLDER, JESUSITA Referring Unavailable GANTA, ТАТЬЯНА Primary Care Unavailable TOSHIA QUINTANILLA Attending Unavailable GANTA, ТАТЬЯНА Primary Care Unavailable MARSHALL, ENRIQUETA Attending Unavailable GANTA, ТАТЬЯНА Primary Care Unavailable MARSHALL, ENRIQUETA Referring Unavailable MARSHALL, ENRIQUETA Attending Unavailable GANTA, ТАТЬЯНА Primary Care Unavailable MARSHALL, ENRIQUETA Referring Unavailable MARSHALL, ENRIQUETA Attending Unavailable GANTA, ТАТЬЯНА Primary Care Unavailable MRASHALL, ENRIQUETA Referring Unavailable GANTA, ТАТЬЯНА Primary Care Unavailable GANTA, ТАТЬЯНА Attending Unavailable GANTA, ТАТЬЯНА Primary Care Unavailable GANTA, ТАТЬЯНА Primary Care Unavailable GANTA, ТАТЬЯНА Attending Unavailable MARSHALL, ENRIQUETA Attending Unavailable MARSHALL, ENRIQUETA Referring Unavailable GANTA, ТАТЬЯНА Primary Care Unavailable OLDER, JESUSITA Attending Unavailable GANTA, ТАТЬЯНА Primary Care Unavailable OLDER, JESUSITA Referring Unavailable GANTA, ТАТЬЯНА Primary Care Unavailable OLDERJESUSITA Referring Unavailable [facility] Unavailable ALESSIO ALEXANDER Attending Unavailable [facility] Unavailable Allergies Allergy Classification Reported Allergen(s) Allergy Type Date of Onset Reaction(s) Facility (20 sources) Amantadine; Translations: [AMANTADINE] Drug Allergy 5 [facility] Work Phone: (20 sources) amLODIPine; Translations: [AMLODIPINE BESYLATE] Drug Allergy 8 [facility] (20 sources) Captopril; Translations: [CAPTOPRIL] Drug Allergy 5 [facility] Work Phone: [phone] (20 sources) Cephalexin; Translations: [CEPHALEXIN] Drug Allergy 5 [facility] Work Phone: (20 sources) Erythromycin; Translations: [ERYTHROMYCIN] Drug Allergy 5 [facility] Work Phone: (20 sources) Iodine; Translations: [IODINE] Drug Allergy 5 [facility] Work Phone: (4 sources) Thiazides; Translations: [THIAZIDES] Propensity to adverse reactions to drug 5 Other: See Comments [facility] Work Phone: (20 sources) Thiazides Propensity to adverse reactions to drug 5 Other: See Comments [facility] Work Phone: Medications Current Medications Medication Drug Class(es) Dates Sig (Normalized) Sig (Original) nitrofurantoin, macrocrystals 25 mg / nitrofurantoin, monohydrate 75 mg oral capsule (2 sources) Nitrofuran Antibacterial Start: 08-04-2022 End: 08-09-2022 take 1 capsule by mouth twice daily at mealtime nitrofurantoin monohydrate and macrocrystal (MACROBID) 100 mg capsule Take 1 capsule by mouth twice daily with meals for 5 days. 10 capsule 0 08/04/2022 08/09/2022 Active Completed/Discontinued Medications Medication Drug Class(es) Dates Sig (Normalized) Sig (Original) >Zippered Compression Knee High 30-40 mm custom (20 sources) Start: 12-09-2017 >Zippered Compression Knee High 30-40 mm custom CUSTOM MEASURE FOR KNEE HIGH ANGELO COMPRESSION STOCKINGS, 30-40 MM, WITH ZIPPERS PLEASE. IF UNABLE, PLEASE REFER TO [facility] AT [facility]. 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] Onset: 0 06-14-2020 Chronic Cardiac dysrhythmias (20 sources) Persistent atrial fibrillation; Translations: [Other persistent atrial fibrillation] Onset: 2 Chronic Chronic kidney disease (20 sources) Chronic kidney disease stage 4; Translations: [Chronic kidney disease, stage 4 (severe)] Onset: 1 06-11-2021 Chronic Chronic kidney disease (1 source) Chronic kidney disease; Translations: [Hypertensive kidney disease with stage 3b chronic kidney disease (HCC)] Onset: 2 Congestive heart failure; nonhypertensive (2 sources) Congestive heart failure; Translations: [Heart failure, unspecified] Chronic Disorders of lipid metabolism (20 sources) Mixed hyperlipidemia; Translations: [Mixed hyperlipidemia] Onset: 7 08-06-2016 Chronic Esophageal disorders (20 sources) Gastroesophageal reflux disease; Translations: [Gastro-esophageal reflux disease without esophagitis] Onset: 8 09-06-2007 Chronic Essential hypertension (20 sources) Essential hypertension; Translations: [Essential (primary) hypertension] Onset: 8 01-29-2018 Chronic Fluid and electrolyte disorders (2 sources) Hypokalemia; Translations: [Hypokalemia] Episodic Hypertension with complications and secondary hypertension (20 sources) Chronic kidney disease stage 3 due to hypertension; Translations: [Hypertensive chronic kidney disease with stage 1 through stage 4 chronic kidney disease, or unspecified chronic kidney disease] Onset: 2 12-06-2021 Chronic Immunizations and screening for infectious disease (2 sources) Needs influenza immunization; Translations: [Encounter for immunization] Episodic Nausea and vomiting (4 sources) Nausea; Translations: [Nausea] Episodic Nonspecific chest pain (1 source) Chest pain; Translations: [Chest pain, unspecified] Episodic Nutritional deficiencies (20 sources) Vitamin D deficiency; Translations: [Vitamin D deficiency, unspecified] Onset: 0 06-13-2010 Chronic Osteoporosis (3 sources) Primary osteoporosis; Translations: [Age-related osteoporosis without current pathological fracture] Onset: 3 02-02-2023 Chronic Other aftercare (1 source) Long-term current use of bisphosphonates; Translations: [termination clerk (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) use of bisphosphonates] Episodic Other aftercare (1 source) senior living (current) use of anticoagulants; Translations: [Anticoagulant long-term use] Onset: 3 Episodic Other circulatory disease (2 sources) Low blood pressure; Translations: [Hypotension, unspecified] Episodic Other circulatory disease (1 source) Other specified symptoms and signs involving the circulatory and respiratory systems; Translations: [Labile blood pressure] Onset: 4 Episodic Other connective tissue disease (1 source) History of osteoporosis; Translations: [Personal history of other diseases of the musculoskeletal system and connective tissue] Episodic Other diseases of veins and lymphatics (11 sources) Lymphedema of bilateral lower limbs; Translations: [Lymphedema, not elsewhere classified] Onset: 3 01-23-2023 Chronic Other gastrointestinal disorders (1 source) Occult blood in stools; Translations: [Other fecal abnormalities] Episodic Other gastrointestinal disorders (3 sources) Diarrhea; Translations: [Diarrhea, unspecified] Episodic Other gastrointestinal disorders (1 source) Personal history of other diseases of the digestive system; Translations: [History of GI bleed] Onset: 3 Episodic Other lower respiratory disease (4 sources) Cough; Translations: [Acute cough] Episodic Other lower respiratory disease (1 source) Dyspnea; Translations: [Shortness of breath] Episodic Other lower respiratory disease (1 source) H/O: pneumonia; Translations: [Personal history of pneumonia (recurrent)] Episodic Other nutritional; endocrine; and metabolic disorders (20 sources) Hypomagnesemia; Translations: [Hypomagnesemia] Onset: 2 06-11-2022 Chronic Other skin disorders (20 sources) Localized scleroderma; 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]] Onset: 9 06-04-2009 Chronic Other skin disorders (1 source) Excessive sweating; Translations: [Generalized hyperhidrosis] Episodic Pleurisy; pneumothorax; pulmonary collapse (2 sources) Pleural effusion; Translations: [Pleural effusion, not elsewhere classified] Episodic Pulmonary heart disease (20 sources) Pulmonary hypertension; Translations: [Pulmonary hypertension, unspecified] Onset: 7 05-07-2017 Chronic Residual codes; unclassified (1 source) Bilateral lower limb edema; Translations: [Localized edema] Episodic Thyroid disorders (7 sources) Hypothyroidism; Translations: [Hypothyroidism, unspecified] Onset: 3 Chronic Unclassified (2 sources) Permanent atrial fibrillation; Translations: [Permanent atrial fibrillation (HCC)] Onset: 2 Past or Other Problems Problem Classification Problem Date Documented Da te Episodic/Chronic Deficiency and other anemia (20 sources) Anemia; Translations: [Anemia, unspecified] Onset: 2 Episodic Deficiency and other anemia (1 source) Anemia, unspecified; Translations: [Anemia, unspecified type] Onset: 2 Episodic Diabetes mellitus without complication (2 sources) High hemoglobin A1c level; Translations: [Other abnormal glucose] Onset: 3 04-09-2023 Episodic Gastrointestinal hemorrhage (20 sources) Gastrointestinal hemorrhage; Translations: [Gastrointestinal hemorrhage, unspecified] Onset: 2 06-11-2022 Episodic Malaise and fatigue (4 sources) Fatigue; Translations: [Other fatigue] Onset: 3 Episodic Other aftercare (12 sources) Long-term current use of anticoagulant; Translations: [senior living (current) use of anticoagulants] Onset: 3 01-23-2023 Episodic Other gastrointestinal disorders (12 sources) History of gastrointestinal bleed; Translations: [Personal history of other diseases of the digestive system] Onset: 3 01-23-2023 Episodic Other screening for suspected conditions (not mental disorders or infectious disease) (20 sources) Blood chemistry abnormal; Translations: [Other specified abnormal findings of blood chemistry] Onset: 6 02-17-2018 Episodic Pathological fracture (20 sources) Osteoporosis; Translations: [Age-related osteoporosis with current pathological fracture, unspecified site, initial encounter for fracture] Onset: 0 03-06-2017 Episodic Residual codes; unclassified (20 sources) Edema of foot; Translations: [Localized edema] Onset: 7 12-04-2016 Episodic Residual codes; unclassified (14 sources) Other specified personal risk factors, not elsewhere classified; Translations: [Other specified personal history presenting hazards to health] Onset: 3 01-23-2023 Episodic Residual codes; unclassified (12 sources) At risk of hemorrhage; Translations: [Other specified personal risk factors, not elsewhere classified] Onset: 3 01-23-2023 Episodic Spondylosis; intervertebral disc disorders; other back problems (2 sources) Backache; Translations: [Dorsalgia, unspecified] Onset: 3 04-09-2023 Episodic Results Test Name Value Interpretation Reference Range Facil ity Vital Signs Date Time Vital Sign Value Performing Clinician Neena morris 06-01-2023 14:33-0500 Diastolic blood pressure 67 mm[Hg] Enriqueta Marshall BALE STACKER.[employer] Work Phone: [facility] 06-01-2023 14:33-0500 Heart rate 56 /min Enriqueta Marshall BALE STACKER.[employer] Work Phone: [facility] 06-01-2023 14:33-0500 Systolic blood pressure 181 mm[Hg] Enriqueta Marshall BALE STACKER.[employer] Work Phone: [facility] 06-01-2023 14:26-0500 Body weight 63.5 kg Enriqueta Mrashall BALE STACKER.[employer] Work Phone: [facility] 06-01-2023 14:26-0500 Respiratory rate 16 /min Enriqueta Marshall BALE STACKER.[employer] Work Phone: [facility] 05-01-2023 13:59-0400 Diastolic blood pressure 74 mm[Hg] Toshia Older BALE STACKER.CAB STARTER Work Phone: [facility] 05-01-2023 13:59-0400 Heart rate 60 /min Toshia Older BALE STACKER.CAB STARTER Work Phone: [facility] 05-01-2023 13:59-0400 Systolic blood pressure 172 mm[Hg] Toshia Older BALE STACKER.CAB STARTER Work Phone: [facility] 05-01-2023 13:58-0400 Body weight 61.69 kg Toshia Older BALE STACKER.CAB STARTER Work Phone: [facility] 05-01-2023 13:58-0400 Respiratory rate 14 /min Toshia Older BALE STACKER.CAB STARTER Work Phone: [facility] 04-15-2023 15:55-0400 Diastolic blood pressure 78 mm[Hg] Alessio Denbow PA-C Work Phone: [facility] 04-15-2023 15:55-0400 Systolic blood pressure 200 mm[Hg] Alessio Denbow PA-C Work Phone: [facility] 04-15-2023 15:03-0400 Body height 157.5 cm Alessio Denbow PA-C Work Phone: [facility] 04-15-2023 15:03-0400 Body temperature 97.2 [degF] Alessio Denbow PA-C Work Phone: [facility] 04-15-2023 15:03-0400 Body weight 58.97 kg Alessio Denbow PA-C Work Phone: [facility] 04-15-2023 15:03-0400 Heart rate 64 /min Alessio Denbow PA-C Work Phone: [facility] 04-15-2023 15:03-0400 Respiratory rate 12 /min Alessio Denbow PA-C Work Phone: [facility] 04-15-2023 15:03-0400 SaO2% (BldA) [Mass fraction] 99 % Alessio Denbow PA-C Work Phone: [facility] 04-09-2023 12:13-0400 Diastolic blood pressure 72 mm[Hg] Jesusita Older BALE STACKER.CAB STARTER Work Phone: [facility] 04-09-2023 12:13-0400 Systolic blood pressure 189 mm[Hg] Jesusita Older BALE STACKER.CAB STARTER Work Phone: [facility] 04-09-2023 12:03-0400 Body weight 60.78 kg Jeussita Older BALE STACKER.CAB STARTER Work Phone: [facility] 04-09-2023 12:03-0400 Heart rate 60 /min Jesusita Older BALE STACKER.CAB STARTER Work Phone: [facility] 04-09-2023 12:03-0400 Respiratory rate 16 /min Jesusita Older BALE STACKER.CAB STARTER Work Phone: [facility] 04-09-2023 12:03-0400 SaO2% (BldA) [Mass fraction] 99 % Jesusita Older BALE STACKER.CAB STARTER Work Phone: [facility] 01-27-2023 15:24-0400 Body height 157.5 cm Maura Giles MD Work Phone: [facility] 01-27-2023 15:24-0400 Body weight 59.42 kg Maura Giles MD Work Phone: [facility] 01-27-2023 15:24-0400 Diastolic blood pressure 77 mm[Hg] Maura Giles MD Work Phone: [facility] 01-27-2023 15:24-0400 Heart rate 74 /min Maura Giles MD Work Phone: [facility] 01-27-2023 15:24-0400 Respiratory rate 18 /min Maura Giles MD Work Phone: [facility] 01-27-2023 15:24-0400 SaO2% (BldA) [Mass fraction] 99 % Maura Giles MD Work Phone: [facility] 01-27-2023 15:24-0400 Systolic blood pressure 165 mm[Hg] Maura Giles MD Work Phone: [facility] 01-07-2023 13:26-0400 Body height 157.5 cm Jesusita Older BALE STACKER.CAB STARTER Work Phone: [facility] 01-07-2023 13:26-0400 Body temperature 97.81 [degF] Jesusita Older BALE STACKER.CAB STARTER Work Phone: [facility] 01-07-2023 13:26-0400 Body weight 60.33 kg Jesusita Older BALE STACKER.CAB STARTER Work Phone: [facility] 01-07-2023 13:26-0400 Diastolic blood pressure 70 mm[Hg] Jesusita Older BALE STACKER.CAB STARTER Work Phone: [facility] 01-07-2023 13:26-0400 Heart rate 58 /min Jesusita Older BALE STACKER.CAB STARTER Work Phone: [facility] 01-07-2023 13:26-0400 Respiratory rate 12 /min Jesusita Older BALE STACKER.CAB STARTER Work Phone: [facility] 01-07-2023 13:26-0400 SaO2% (BldA) [Mass fraction] 97 % Jesusita Older BALE STACKER.CAB STARTER Work Phone: [facility] 01-07-2023 13:26-0400 Systolic blood pressure 140 mm[Hg] Jesusita Older BALE STACKER.CAB STARTER Work Phone: [facility] 09-10-2022 14:49-0400 Diastolic blood pressure 92 mm[Hg] Татьяна Barnard MD Work Phone: [facility] 09-10-2022 14:49-0400 Systolic blood pressure 160 mm[Hg] Татьяна Barnard MD Work Phone: [facility] 09-10-2022 13:55-0400 Body temperature 97.5 [degF] Татьяна Barnard MD Work Phone: [facility] 09-10-2022 13:55-0400 Body weight 60.33 kg Татьяна Barnard MD Work Phone: [facility] 09-10-2022 13:55-0400 Heart rate 56 /min Татьяна Barnard MD Work Phone: [facility] 09-10-2022 13:55-0400 Respiratory rate 16 /min Татьяна Barnard MD Work Phone: [facility] 09-10-2022 13:55-0400 SaO2% (BldA) [Mass fraction] 100 % Татьяна Barnard MD Work Phone: [facility] 05-07-2022 12:55-0500 Body height 157.5 cm Татьяна Barnard MD Work Phone: [facility] 05-07-2022 12:55-0500 Body weight 56.7 kg Татьяна Barnard MD Work Phone: [facility] 05-07-2022 12:55-0500 Diastolic blood pressure 76 mm[Hg] Татьяна Barnard MD Work Phone: [facility] 05-07-2022 12:55-0500 Heart rate 69 /min Татьяна Barnard MD Work Phone: [facility] 05-07-2022 12:55-0500 Respiratory rate 12 /min Татьяна Barnard MD Work Phone: [facility] 05-07-2022 12:55-0500 SaO2% (BldA) [Mass fraction] 99 % Татьяна Barnard MD Work Phone: [facility] 05-07-2022 12:55-0500 Systolic blood pressure 122 mm[Hg] Татьяна Barnard MD Work Phone: [facility] 04-21-2022 15:21-0400 Diastolic blood pressure 76 mm[Hg] Татьяна Barnard MD Work Phone: [facility] 04-21-2022 15:21-0400 Systolic blood pressure 130 mm[Hg] Татьяна Barnard MD Work Phone: [facility] 04-21-2022 14:33-0400 Body height 157.5 cm Татьяна Barnard MD Work Phone: [facility] 04-21-2022 14:33-0400 Body temperature 98.6 [degF] Татьяна Barnard MD Work Phone: [facility] 04-21-2022 14:33-0400 Body weight 59.42 kg Татьяна Barnard MD Work Phone: [facility] 04-21-2022 14:33-0400 Heart rate 89 /min Татьяна Barnard MD Work Phone: [facility] 04-21-2022 14:33-0400 Respiratory rate 12 /min Татьяна Barnard MD Work Phone: [facility] 04-21-2022 14:33-0400 SaO2% (BldA) [Mass fraction] 98 % Татьяна Barnard MD Work Phone: [facility] 04-09-2022 17:05-0400 Body height 157.5 cm Татьяна Barnard MD Work Phone: [facility] 04-09-2022 17:05-0400 Body temperature 97.39 [degF] Татьяна Barnard MD Work Phone: [facility] 04-09-2022 17:05-0400 Body weight 61.24 kg Татьяна Barnard MD Work Phone: [facility] 04-09-2022 17:05-0400 Diastolic blood pressure 52 mm[Hg] Татьяна Barnard MD Work Phone: [facility] 04-09-2022 17:05-0400 Heart rate 90 /min Татьяна Barnard MD Work Phone: [facility] 04-09-2022 17:05-0400 Respiratory rate 12 /min Татьяна Barnard MD Work Phone: [facility] 04-09-2022 17:05-0400 SaO2% (BldA) [Mass fraction] 98 % Татьяна Barnard MD Work Phone: [facility] 04-09-2022 17:05-0400 Systolic blood pressure 90 mm[Hg] Татьяна Barnard MD Work Phone: [facility] 04-02-2022 15:23-0400 Body weight 59.88 kg Jesusita Older B[employer] STACKER.CAB STARTER Work Phone: [facility] 04-02-2022 15:23-0400 Diastolic blood pressure 78 mm[Hg] Jesusita Older B[employer] STACKER.CAB STARTER Work Phone: [facility] 04-02-2022 15:23-0400 Heart rate 90 /min Jesusita Older B[employer] STACKER.CAB STARTER Work Phone: [facility] 04-02-2022 15:23-0400 Respiratory rate 16 /min Jesusita Older B[employer] STACKER.CAB STARTER Work Phone: [facility] 04-02-2022 15:23-0400 SaO2% (BldA) [Mass fraction] 99 % Jesusita Older BALE STACKER.CAB STARTER Work Phone: [facility] 04-02-2022 15:23-0400 Systolic blood pressure 122 mm[Hg] Jesusita Older B[employer] STACKER.CAB STARTER Work Phone: [facility] 03-20-2022 14:44-0400 Body weight 60.33 kg Jesusita Older B[employer] STACKER.CAB STARTER Work Phone: [facility] 03-20-2022 14:44-0400 Diastolic blood pressure 70 mm[Hg] Jesusita Older B[employer] STACKER.CAB STARTER Work Phone: [facility] 03-20-2022 14:44-0400 Heart rate 68 /min Jesusita Older BALE STACKER.CAB STARTER Work Phone: [facility] 03-20-2022 14:44-0400 Respiratory rate 16 /min Jesusita Older B[employer] STACKER.CAB STARTER Work Phone: [facility] 03-20-2022 14:44-0400 Systolic blood pressure 112 mm[Hg] Jesusita Older BALE STACKER.CAB STARTER Work Phone: [facility] 03-10-2022 15:52-0400 Body weight 60.33 kg Татьяна Barnard MD Work Phone: [facility] 03-10-2022 15:52-0400 Diastolic blood pressure 58 mm[Hg] Татьяна Barnard MD Work Phone: [facility] 03-10-2022 15:52-0400 Heart rate 74 /min Татьяна Barnard MD Work Phone: [facility] 03-10-2022 15:52-0400 Respiratory rate 14 /min Татьяна Barnard MD Work Phone: [facility] 03-10-2022 15:52-0400 SaO2% (BldA) [Mass fraction] 99 % Татьяна Barnard MD Work Phone: [facility] 03-10-2022 15:52-0400 Systolic blood pressure 92 mm[Hg] Татьяна Barnard MD Work Phone: [facility] 02-21-2022 14:40-0400 Body height 157.5 cm Татьяна Barnard MD Work Phone: [facility] 02-21-2022 14:40-0400 Body temperature 96.4 [degF] Татьяна Barnard MD Work Phone: [facility] 02-21-2022 14:40-0400 Body weight 57.15 kg Татьяна Barnard MD Work Phone: [facility] 02-21-2022 14:40-0400 Diastolic blood pressure 50 mm[Hg] Татьяна Barnard MD Work Phone: [facility] 02-21-2022 14:40-0400 Heart rate 60 /min Татьяна Barnard MD Work Phone: [facility] 02-21-2022 14:40-0400 Respiratory rate 12 /min Татьяна Barnard MD Work Phone: [facility] 02-21-2022 14:40-0400 SaO2% (BldA) [Mass fraction] 99 % Татьяна Barnard MD Work Phone: [facility] 02-21-2022 14:40-0400 Systolic blood pressure 92 mm[Hg] Татьяна Barnard MD Work Phone: [facility] 12-10-2021 13:00-0400 Body height 159 cm Татьяна Barnard MD Work Phone: [facility] 12-10-2021 13:00-0400 Body weight 60.78 kg Татьяна Barnard MD Work Phone: [facility] 12-10-2021 13:00-0400 Diastolic blood pressure 62 mm[Hg] Татьяна Barnard MD Work Phone: [facility] 12-10-2021 13:00-0400 Heart rate 56 /min Татьяна Barnard MD Work Phone: [facility] 12-10-2021 13:00-0400 Respiratory rate 16 /min Татьяна Barnard MD Work Phone: [facility] 12-10-2021 13:00-0400 Systolic blood pressure 128 mm[Hg] Татьяна Barnard MD Work Phone: [facility] Encounters Encounter Date Encounter Type Care Provider Facility Start: 07-09-2023 End: 07-10-2023 [facility] Facility:[facility] Start: 07-02-2023 End: 07-03-2023 [facility] Facility:[facility] Start: 07-02-2023 End: 07-02-2023 [facility] Facility:[facility] Start: 06-30-2023 End: 06-30-2023 [facility] Facility:[facility] Start: 06-01-2023 End: 06-02-2023 [facility] Facility:[facility] Start: 06-01-2023 End: 06-01-2023 Office outpatient visit 25 minutes Enriqueta Marshall APRN.SLIP MIXER Work Phone: Internal Medicine Bill Procedures Date Procedure Procedure Detail Performing Clinician Start: 04-09-2023 INFLUENZA VACCINE, P RSV FREE, AGE 65+ YR, HIGH DOSE, QUADRIVALENT (FLUZONE HIGH-DOSE) Jesusita Drake B[employer] STACKER.CAB STARTER Work Phone: Start: 01-27-2023 Ecg routine ecg w/le ast 12 lds w/i&r Maura Giles MD Work Phone: Start: 01-12-2023 Dxa bone density rex dy 1/> sites axial skel Jesusita Drake B[employer] STACKER.CAB STARTER Work Phone: Start: 04-21-2022 INFLUENZA SEASONAL QUADRIVALENT HIGH DOSE AGE 65+ Татьяна Barnard MD Work Phone: Start: 03-31-2022 Inf agent det nuclei c acid clostridium amp probe Jesusita Drake B[employer] STACKER.CAB STARTER Work Phone: Plan of Treatment Date Care Activity Detail Author Start: 04-09-2026 Diabetes Screening Diabetes Screenin [facility] Start: 06-03-2025 DIABETES SCREEN DIABETES SCREEN [facility] Start: 06-03-2025 Diabetes Screening Diabetes Screenin [facility] Start: 04-17-2025 DIABETES SCREEN DIABETES SCREEN [facility] Start: 04-10-2025 DIABETES SCREEN DIABETES SCREEN [facility] Start: 04-03-2025 DIABETES SCREEN DIABETES SCREEN [facility] Start: 03-20-2025 DIABETES SCREEN DIABETES SCREEN [facility] Start: 01-08-2025 DIABETES SCREEN DIABETES SCREEN [facility] Start: 12-13-2024 DIABETES SCREEN DIABETES SCREEN [facility] Start: 06-04-2024 DIABETES SCREEN DIABETES SCREEN [facility] Start: 04-15-2024 RSV Vaccine (1 - 1-d ose 60+ series) RSV Vaccine (1 - 1-dose 60+ series) [facility] Immunizations Immunization Date Immunization Notes Care Provider Michelle novak 04-09-2023 influenza (HD-IIV4) vaccine, age 65+ yr, high dose, quadrivalent, PF (FLUZONE HIGH-DOSE) Jesusita Drake BALE STACKER.DARSHAN Work Phone: [facility] 04-21-2022 influenza, high-dose , quadrivalent vaccine (FLUZONE HIGH DOSE QUADRIVALENT) Татьяна Barnard MD Work Phone: [facility] Work Phone: 04-21-2022 influenza virus vacc ine, unspecified formulation Татьяна Barnard MD Work Phone: [facility] 04-02-2021 influenza (aIIV4) vaccine, age 65+ yr, quadrivalent, PF (FLUAD QUAD) Brittani Oswald MA [facility] Work Phone: 04-02-2021 influenza, high dose seasonal, preservative-free Татьяна Barnard MD Work Phone: [facility] 08-24-2020 COVID-19 vaccine, fu ll dose (MODERNA) Татьяна Barnard MD Work Phone: [facility] Work Phone: 07-27-2020 COVID-19 vaccine, fu ll dose (MODERNA) Татьяна Barnard MD Work Phone: [facility] Work Phone: 03-08-2020 influenza, injectabl e, quadrivalent, preservative free Татьяна Barnard MD Work Phone: [facility] Work Phone: 03-08-2020 pneumococcal polysaccharide vaccine, 23 valent Татьяна Barnard MD Work Phone: [facility] Work Phone: 03-31-2019 Seasonal trivalent influenza vaccine, adjuvanted, preservative free Brittani Oswald MA [facility] Work Phone: 03-30-2018 Seasonal trivalent influenza vaccine, adjuvanted, preservative free Brittani Oswald MA [facility] Work Phone: 03-30-2017 influenza, high dose seasonal, preservative-free Татьяна Barnard MD Work Phone: [facility] Work Phone: 03-30-2017 influenza, injectabl e, quadrivalent, preservative free Brittani Oswald [facility] Work Phone: 03-30-2017 influenza, seasonal, injectable, preservative free Татьяна Barnard MD Work Phone: [facility] Work Phone: 03-26-2016 influenza, high dose seasonal, preservative-free Татьяна Barnard MD Work Phone: [facility] Work Phone: 01-28-2016 pneumococcal polysaccharide vaccine, 23 valent Татьяна Barnard MD Work Phone: [facility] Work Phone: 04-25-2015 pneumococcal conjuga te vaccine, 13 valent Татьяна Barnard MD Work Phone: [facility] Work Phone: 03-31-2014 influenza virus vacc ine, unspecified formulation Татьяна Barnard MD Work Phone: [facility] 06-07-2013 tetanus toxoid, redu dionicio diphtheria toxoid, and acellular pertussis vaccine, adsorbed Татьяна Barnard MD Work Phone: [facility] 07-15-2011 influenza virus vacc ine, unspecified formulation Татьяна Barnard MD Work Phone: [facility] 04-08-2010 influenza virus vacc ine, unspecified formulation Татьяна Barnard MD Work Phone: [facility] Work Phone: 07-30-2000 pneumococcal polysaccharide vaccine, 23 valent Татьяна Barnard MD Work Phone: [facility] Work Phone: 10-28-1995 diphtheria and tetan us toxoids, adsorbed for pediatric use Татьяна Barnard MD Work Phone: [facility] Work Phone: Payers Date Payer Category Payer Medicare HUMANA MEDICARE HUMANA MEDICARE PPO [id number] 2021-Present [phone] [id number] 2021 Medicare HUMANA MEDICARE HUMANA MEDICARE PPO [id number] 2021-Present [phone] [id number] 2021 Medicare [id number] Social History Date Type Detail Facility Start: 10-10-2014 End: 02-21-2022 Tobacco smoking status NHIS Ex-smoker [facility] End: 07-06-1976 History of tobacco use Current smoker [facility] Start: 06-11-2021 End: 06-01-2023 Alcohol intake Current non-drinker of alcohol (finding) [facility] Start: 1935 Sex Assigned At Not on file [facility] Start: 11-30-2021 End: 05-07-2022 Exposure to SARS-CoV-2 (event) Not sure [facility] Work Phone: End: 07-06-1976 History of tobacco use Cigarette Smoker [facility] Work Phone: Start: 10-10-2014 End: 02-21-2022 Tobacco use and exposure Smokeless tobacco non-user [facility] Work Phone: Start: 02-21-2022 Tobacco Comment Quit 4- 5 cig per day [facility] Start: 03-11-2022 End: 04-02-2022 Exposure to SARS-CoV-2 (event) Unable to assess [facility] Start: 06-04-2020 End: 01-07-2023 History of Social function [facility] Work Phone: Start: 06-04-2020 End: 01-07-2023 Tobacco use panel [facility] Work Phone: Adult Depression Screening Assessment 0 [facility] Work Phone: Medical Equipment Procedure Code Equipment Code Equipment Origin al Text Equipment Identifier Dates Dtc-St-[id number]-Kind Implant - [id number] Start: 12-14-2012 Clinical Notes 12-14-2012 to 07-09-2023 Patient InstructionsBroEnriqueta de los santos APRN.SLIP MIXER - 06/01/2023 2:20 PM ESTTelephone Encounter - Margie Garcia - 05/07/2023 11:22 AM Toshia Camargo APRN.CAB STARTER - 05/01/2023 12:10 PM EDT Note Date & Type Note Facility 07-09-2023 Note HNO ID: [id number] Author: ENRIQUETA MARSHALL APRN.SLIP MIXER Service: ? Author Type: Nurse Specialist Type: Progress Notes Filed: 07/09/2023 16:07 Note Text: SUBJECTIVE: Covid-19 Vaccine( season) due on 02/27/2023 DTaP,Tdap,Td Vaccine(3 - Td or Tdap) due on 06/07/2023 Advance Directive Discussion Never done Depression Assessment due on 06/29/2023 HPI Reinier Stoner is a 87 year old female. 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 Presents with SOB. HPI excerpted from previous visit: At previous visit her frequency of hydralazine was increased from 3 times daily to 4 times daily. At her last visit 2 mg terazosin daily was added. She reports home blood pressure readings of 120-150/60-80 at home since starting this medication. She notes some aggravation with elevated blood pressure. She notes brother recently was in the hospital. She reports ruminating at bedtime and limited sleep, falling asleep at 4 AM. Daughter notes some anxiety. Trouble falling asleep and staying asleep. Reports awakening around 6:30. Notes has had increased sodium in diet of late, hussein. She reports today home blood pressure readings of 130-196/70 90, has been trending downward over the last week. Please see scanned documents. She notes that cardiology did not schedule sooner appointment when she called to request it, continues with appointment at the end of July. Advised to go to ER by cardiology per patient if any concerning symptoms. Has not scheduled sooner appointment with nephrology. Did not try trazodone since last seen. HTN: She is without report of chest pain shortness of breath palpitations. Mild ankle swelling for which she takes Lasix which is chronic. No presyncope or syncope. No headache. No vision changes, mobility changes, no speech changes. She feels she is in her usual state of health.No missed medication doses. Last 14 Encounter BP Readings: Date: BP: 07/09/2023 212/56 07/02/2023 190/80 06/30/2023 221/61 06/01/2023 181/67[bp average[ 05/01/2023 172/74[bp sasha average[ 04/15/2023 200/78[manual in left arm[ 04/09/2023 189/72[BP Sasha[ 01/27/2023 165/77 01/07/2023 140/70 12/10/2022 168/72 10/07/2022 146/80 09/10/2022 160/92 06/11/2022 110/60 05/07/2022 122/76 [employer] Crm Developer: Dr Sewell, has upcoming appointment in October EP: Dr Giles. Review of Systems Constitutional: Negative. Respiratory: Negative. Cardiovascular: Negative. Objective BP (!) 212/56 Pulse 67 Resp 16 Wt 62.6 kg (138 lb) BMI 25.24 kg/m? Physical Exam Vitals and nursing note reviewed. Constitutional: Appearance: Normal appearance. HENT: Head: Normocephalic and atraumatic. Eyes: Conjunctiva/sclera: Conjunctivae normal. Neck: Thyroid: No thyromegaly. Vascular: Normal carotid pulses. No JVD. Cardiovascular: Rate and Rhythm: Normal rate and regular rhythm. Pulses: Carotid pulses are 2+ on the right side and 2+ on the left side. Radial pulses are 2+ on the right side and 2+ on the left side. Heart sounds: Normal heart sounds. Pulmonary: Effort: Pulmonary effort is normal. Breath sounds: Normal breath sounds. Musculoskeletal: Right lower leg: No edema. Left lower leg: No edema. Skin: General: Skin is warm and dry. Neurological: General: No focal deficit present. Mental Status: She is alert and oriented to person, place, and time. ALLERGIES Allergen Reactions Amantadine Rash Capoten [Captopril] Rash Cephalexin Rash Erythromycin Rash Hctz [Thiazides] Other: See Comments leg cramps Ivp Dye [Iodine] Rash Norvasc [Amlodipine* Swelling Medications terazosin (HYTRIN) 2 mg capsule take 1 capsule by mouth at bedtime traZODone (DESYREL) 50 mg tablet Take 1 tablet by mouth daily at bedtime. for sleep furosemide (LASIX) 20 mg tablet Take 1 tablet by mouth every other day. hydrALAZINE (APRESOLINE) 10 mg tablet Take 1 tablet by mouth four times daily. losartan (COZAAR) 50 mg tablet Take 1 tablet by mouth two times a day. carvedilol (COREG) 12.5 mg tablet Take 12.5 mg by mouth two times a day with meals. atorvastatin (LIPITOR) 20 mg tablet Take 1 tablet by mouth every 48 hours. levothyroxine (LEVOXYL) 25 mcg tablet Take 1 tablet by mouth (more content not included)... [facility] 07-02-2023 Note HNO ID: [id number] Author: ENRIQUETA MARSHALL APRN.SLIP MIXER Service: ? Author Type: Nurse Specialist Type: Progress Notes Filed: 07/02/2023 12:41 Note Text: SUBJECTIVE: Covid-19 Vaccine() due on 02/27/2023 Advance Directive Discussion Never done Depression Assessment due on 06/29/2023 DTaP,Tdap,Td Vaccine(3 - Td or Tdap) due on 06/07/2023 HPI Reinier Stoner is a 87 year old female. 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 At previous visit her frequency of hydralazine was increased from 3 times daily to 4 times daily. At her last visit 2 mg terazosin daily was added. She reports home blood pressure readings of 120-150/60-80 at home since starting this medication. She notes some aggravation with elevated blood pressure. She notes brother recently was in the hospital. She reports ruminating at bedtime and limited sleep, falling asleep at 4 AM. Daughter notes some anxiety. Trouble falling asleep and staying asleep. Reports awakening around 6:30. Notes has had increased sodium in diet of late, [place]. HTN: She is without report of chest pain shortness of breath palpitations. Mild ankle swelling for which she takes Lasix which is chronic. No presyncope or syncope. No headache. No vision changes, mobility changes, no speech changes. She feels she is in her usual state of health.No missed medication doses. Last 14 Encounter BP Readings: Date: BP: 07/02/2023 190/80 06/30/2023 221/61 06/01/2023 181/67[bp average[ 05/01/2023 172/74[bp sasha average[ 04/15/2023 200/78[manual in left arm[ 04/09/2023 189/72[BP Sasha[ 01/27/2023 165/77 01/07/2023 140/70 12/10/2022 168/72 10/07/2022 146/80 09/10/2022 160/92 06/11/2022 110/60 05/07/2022 122/76 04/21/2022 130/76 [employer] Crm Developer: Dr Sewell, has upcoming appointment in October EP: Dr Giles. [facility], July appointment. Review of Systems Constitutional: Negative. Respiratory: Negative. Cardiovascular: Negative. Objective BP 190/80 (BP Site: Right Arm, BP Position: Sitting, BP Cuff Size: Regular Adult) Pulse 62 Resp 16 Wt 62.6 kg (138 lb) BMI 25.24 kg/m? Physical Exam Vitals and nursing note reviewed. Constitutional: Appearance: Normal appearance. HENT: Head: Normocephalic and atraumatic. Neck: Thyroid: No thyromegaly. Vascular: Normal carotid pulses. No JVD. Cardiovascular: Rate and Rhythm: Normal rate and regular rhythm. Pulses: Carotid pulses are 2+ on the right side and 2+ on the left side. Radial pulses are 2+ on the right side and 2+ on the left side. Heart sounds: Normal heart sounds. Pulmonary: Effort: Pulmonary effort is normal. Breath sounds: Normal breath sounds. Musculoskeletal: Right lower leg: No edema. Left lower leg: No edema. Skin: General: Skin is warm and dry. Neurological: General: No focal deficit present. Mental Status: She is alert and oriented to person, place, and time. ALLERGIES Allergen Reactions Amantadine Rash Capoten [Captopril] Rash Cephalexin Rash Erythromycin Rash Hctz [Thiazides] Other: See Comments leg cramps Ivp Dye [Iodine] Rash Norvasc [Amlodipine* Swelling Medications terazosin (HYTRIN) 2 mg capsule Take 1 capsule by mouth daily at bedtime. For high blood pressure. furosemide (LASIX) 20 mg tablet Take 1 tablet by mouth every other day. hydrALAZINE (APRESOLINE) 10 mg tablet Take 1 tablet by mouth four times daily. losartan (COZAAR) 50 mg tablet Take 1 tablet by mouth two times a day. carvedilol (COREG) 12.5 mg tablet Take 12.5 mg by mouth two times a day with meals. atorvastatin (LIPITOR) 20 mg tablet Take 1 tablet by mouth every 48 hours. levothyroxine (LEVOXYL) 25 mcg tablet Take 1 tablet by mouth once daily. Take on empty stomach. For Thyroid omeprazole (PRILOSEC) 40 mg capsule Take 1 capsule by mouth daily before breakfast. 1/2 hr before meal. potassium chloride (K-TAB) 10 mEq tablet Take 1 tablet by mouth twice daily. Spirometers and Accessories magdalena Use 3 times a day, each time blow into it for 10 reps XARELTO 15 mg tablet Take 15 mg by mouth daily with dinner. brimonidine (ALPHAGAN P) 0.15 % ophthalmic solution Use 1 Drop in the right eye twice daily. timolol maleate (TIMOPTIC (more content not included)... [facility] 06-30-2023 Note HNO ID: [id number] Author: Enriqueta Marshall APRN.SLIP MIXER Service: ? Author Type: Nurse Specialist Type: Progress Notes Filed: 06/30/2023 2:20 PM Note Text: SUBJECTIVE: Covid-19 Vaccine() due on 02/27/2023 Advance Directive Discussion Never done Depression Assessment due on 06/29/2023 DTaP,Tdap,Td Vaccine(3 - Td or Tdap) due on 06/07/2023 HPI Reinier Stoner is a 87 year old female. 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 At her last visit her frequency of hydralazine was increased from 3 times daily to 4 times daily. She reports home blood pressure readings much and is reported at her last visit -125/65 with a heart rate of 56-1 77/83 with a heart rate of 57. She notes that she expected her daughter to drive today however she did not and had to drive herself so may be under a bit more stress than usual. She is without pain. HTN: She is without report of chest pain shortness of breath palpitations. Mild ankle swelling for which she takes Lasix which is chronic. No presyncope or syncope. No headache. No vision changes, mobility changes, no speech changes. She feels she is in her usual state of health.No missed medication doses. Last 14 Encounter BP Readings: Date: BP: 06/30/2023 221/61 06/01/2023 181/67[bp average[ 05/01/2023 172/74[bp sasha average[ 04/15/2023 200/78[manual in left arm[ 04/09/2023 189/72[BP Sasha[ 01/27/2023 165/77 01/07/2023 140/70 12/10/2022 168/72 10/07/2022 146/80 09/10/2022 160/92 06/11/2022 110/60 05/07/2022 122/76 04/21/2022 130/76 04/09/2022 90/52 [employer] Crm Developer: Dr Sewell, has upcoming appointment EP: Dr Giles. Review of Systems Constitutional: Negative. Respiratory: Negative. Cardiovascular: Negative. Objective BP (!) 221/61 Pulse (!) 59 Resp 14 Wt 62.6 kg (138 lb) BMI 25.24 kg/m? Physical Exam Vitals and nursing note reviewed. Constitutional: Appearance: Normal appearance. HENT: Head: Normocephalic and atraumatic. Neck: Thyroid: No thyromegaly. Vascular: Normal carotid pulses. No JVD. Cardiovascular: Rate and Rhythm: Normal rate. Rhythm irregular. Pulses: Carotid pulses are 2+ on the right side and 2+ on the left side. Radial pulses are 2+ on the right side and 2+ on the left side. Pulmonary: Effort: Pulmonary effort is normal. Breath sounds: Normal breath sounds. Musculoskeletal: Right lower leg: No edema. Left lower leg: No edema. Skin: General: Skin is warm and dry. Neurological: General: No focal deficit present. Mental Status: She is alert and oriented to person, place, and time. ALLERGIES Allergen Reactions Amantadine Rash Capoten [Captopril] Rash Cephalexin Rash Erythromycin Rash Hctz [Thiazides] Other: See Comments leg cramps Ivp Dye [Iodine] Rash Norvasc [Amlodipine* Swelling Medications furosemide (LASIX) 20 mg tablet Take 1 tablet by mouth every other day. hydrALAZINE (APRESOLINE) 10 mg tablet Take 1 tablet by mouth four times daily. losartan (COZAAR) 50 mg tablet Take 1 tablet by mouth two times a day. carvedilol (COREG) 12.5 mg tablet Take 12.5 mg by mouth two times a day with meals. atorvastatin (LIPITOR) 20 mg tablet Take 1 tablet by mouth every 48 hours. levothyroxine (LEVOXYL) 25 mcg tablet Take 1 tablet by mouth once daily. Take on empty stomach. For Thyroid omeprazole (PRILOSEC) 40 mg capsule Take 1 capsule by mouth daily before breakfast. 1/2 hr before meal. potassium chloride (K-TAB) 10 mEq tablet Take 1 tablet by mouth twice daily. Spirometers and Accessories magdalena Use 3 times a day, each time blow into it for 10 reps XARELTO 15 mg tablet Take 15 mg by mouth daily with dinner. brimonidine (ALPHAGAN P) 0.15 % ophthalmic solution Use 1 Drop in the right eye twice daily. timolol maleate (TIMOPTIC) 0.5 % ophthalmic solution Use 1 Drop in the right eye twice daily. >Zippered Compression Knee High 30-40 mm custom CUSTOM MEASURE FOR KNEE HIGH ANGELO COMPRESSION STOCKINGS, 30-40 MM, WITH ZIPPERS PLEASE. IF UNABLE, PLEASE REFER TO BALA AT [facility]. DX: EDEMA latanoprost (XALATAN) 0.005 % ophthalmic solution 1 Drop daily at bedtime. brimonidine-timolol (COMBIGAN) 0.2-0.5 % ophthalmic solution Use in both eyes. T (more content not included)... [facility] 06-01-2023 Note HNO ID: [id number] Author: Enriqueta Marshall APRN.SLIP MIXER Service: ? Author Type: Nurse Specialist Type: Progress Notes Filed: 06/01/2023 3:35 PM Note Text: SUBJECTIVE: Advance Directive Discussion Never done Covid-19 Vaccine( season) due on 02/27/2023 DTaP,Tdap,Td Vaccine(3 - Td or Tdap) due on 06/07/2023 HPI Reinier Stoner is a 87 year old female. 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 Home blood pressure readings since last year 133/64 to 174/82. Heart rates has been in the 50s to 60s.She e notes feeling a bit fatigued when her blood pressure in the 130s systolic range. HTN: Without reported chest pain shortness of breath palpitations. Mild ankle swelling for which she takes Lasix which is chronic. Last 14 Encounter BP Readings: Date: BP: 05/01/2023 172/74[bp sasha average[ 04/15/2023 200/78[manual in left arm[ 04/09/2023 189/72[BP Sasha[ 01/27/2023 165/77 01/07/2023 140/70 12/10/2022 168/72 10/07/2022 146/80 09/10/2022 160/92 06/11/2022 110/60 05/07/2022 122/76 04/21/2022 130/76 04/09/2022 90/52 04/02/2022 122/78 03/20/2022 112/70 [employer] Crm Developer: Dr Sewell, has upcoming appointment EP: Dr Giles. Review of Systems Constitutional: Negative. Respiratory: Negative. Cardiovascular: Negative. Objective BP 181/67 Pulse (!) 56 Resp 16 Wt 63.5 kg (140 lb) BMI 25.61 kg/m? Physical Exam Vitals and nursing note reviewed. Constitutional: Appearance: Normal appearance. HENT: Head: Normocephalic and atraumatic. Neck: Thyroid: No thyromegaly. Vascular: Normal carotid pulses. No JVD. Cardiovascular: Rate and Rhythm: Normal rate. Rhythm irregular. Pulmonary: Effort: Pulmonary effort is normal. Breath sounds: Normal breath sounds. Musculoskeletal: Right lower leg: No edema. Left lower leg: No edema. Skin: General: Skin is warm and dry. Neurological: Mental Status: She is alert. ALLERGIES Allergen Reactions Amantadine Rash Capoten [Captopril] Rash Cephalexin Rash Erythromycin Rash Hctz [Thiazides] Other: See Comments leg cramps Ivp Dye [Iodine] Rash Norvasc [Amlodipine* Swelling hydrALAZINE (APRESOLINE) 10 mg tablet Take 1 tablet by mouth three times a day. losartan (COZAAR) 50 mg tablet Take 1 tablet by mouth two times a day. carvedilol (COREG) 12.5 mg tablet Take 12.5 mg by mouth two times a day with meals. atorvastatin (LIPITOR) 20 mg tablet Take 1 tablet by mouth every 48 hours. levothyroxine (LEVOXYL) 25 mcg tablet Take 1 tablet by mouth once daily. Take on empty stomach. For Thyroid omeprazole (PRILOSEC) 40 mg capsule Take 1 capsule by mouth daily before breakfast. 1/2 hr before meal. alendronate (FOSAMAX) 70 mg tablet Take 1 tablet by mouth one time a week. In AM with cup of water on empty stomach. Nothing else by mouth and stay upright for 30 min. potassium chloride (K-TAB) 10 mEq tablet Take 1 tablet by mouth twice daily. furosemide (LASIX) 20 mg tablet Take 1 tablet by mouth every other day. Spirometers and Accessories magdalena Use 3 times a day, each time blow into it for 10 reps XARELTO 15 mg tablet Take 15 mg by mouth daily with dinner. brimonidine (ALPHAGAN P) 0.15 % ophthalmic solution Use 1 Drop in the right eye twice daily. timolol maleate (TIMOPTIC) 0.5 % ophthalmic solution Use 1 Drop in the right eye twice daily. clobetasol (TEMOVATE) 0.05 % ointment Apply 1 application to affected area twice daily. TO AFFECTED AREA. >Zippered Compression Knee High 30-40 mm custom CUSTOM MEASURE FOR KNEE HIGH ANGELO COMPRESSION STOCKINGS, 30-40 MM, WITH ZIPPERS PLEASE. IF UNABLE, PLEASE REFER TO BALA AT [facility]. DX: EDEMA latanoprost (XALATAN) 0.005 % ophthalmic solution 1 Drop daily at bedtime. clobetasol (TEMOVATE) 0.05 % ointment Apply 1 application to affected area 3 times a WEEK. TO AFFECTED AREA. brimonidine-timolol (COMBIGAN) 0.2-0.5 % ophthalmic solution Use in both eyes. TRAVATAN Z 0.004 % Drop daily at bedtime. Cholecalciferol, Vitamin D3, 2,000 unit ORAL Cap Take one(1) tablet two(2) times daily. calcium carbonate(CALTRATE 600 600 MG (1,500 MG) TAB) Take one(1) tablet twice daily. PAST MEDICAL HISTORY Diagnosis Date Acquired keratoderma Lichen sclerosis (more content not included)... [facility] 06-01-2023 Instructions Enriqueta Marshall APRN.CNS - 06/01/2023 2:56 PM EST Increase hydralazine from 10 mg 3 times daily to 10 mg 4 times daily. Check blood pressure and heart rate daily and write down results. Okay to reduce to hydralazine 3 times daily if blood pressure in the 120-130 systolic range (top blood pressure number) or feeling dizzy or fatigued. documented in this encounter [facility] 06-01-2023 History of Presen t illness Narrative SUBJECTIVE: Advance Directive Discussion Never done Covid-19 Vaccine(2022- season) due on 02/27/2023 DTaP,Tdap,Td Vaccine(3 - Td or Tdap) due on 06/07/2023 HPI Reinier Stoner is a 87 year old female. 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 Home blood pressure readings since last year 133/64 to 174/82. Heart rates has been in the 50s to 60s.She e notes feeling a bit fatigued when her blood pressure in the 130s systolic range. HTN: Without reported chest pain shortness of breath palpitations. Mild ankle swelling for which she takes Lasix which is chronic. Last 14 Encounter BP Readings: Date: BP: 05/01/2023 172/74[bp sasha average[ 04/15/2023 200/78[manual in left arm[ 04/09/2023 189/72[BP Sasha[ 01/27/2023 165/77 01/07/2023 140/70 12/10/2022 168/72 10/07/2022 146/80 09/10/2022 160/92 06/11/2022 110/60 05/07/2022 122/76 04/21/2022 130/76 04/09/2022 90/52 04/02/2022 122/78 03/20/2022 112/70 [employer] Crm Developer: Dr Sewell, has upcoming appointment EP: Dr Giles. Review of Systems Constitutional: Negative. Respiratory: Negative. Cardiovascular: Negative. Objective BP 181/67 Pulse (!) 56 Resp 16 Wt 63.5 kg (140 lb) BMI 25.61 kg/m Physical Exam Vitals and nursing note reviewed. Constitutional: Appearance: Normal appearance. HENT: Head: Normocephalic and atraumatic. Neck: Thyroid: No thyromegaly. Vascular: Normal carotid pulses. No JVD. Cardiovascular: Rate and Rhythm: Normal rate. Rhythm irregular. Pulmonary: Effort: Pulmonary effort is normal. Breath sounds: Normal breath sounds. Musculoskeletal: Right lower leg: No edema. Left lower leg: No edema. Skin: General: Skin is warm and dry. Neurological: Mental Status: She is alert. ALLERGIES Allergen Reactions Amantadine Rash Capoten [Captopril] Rash Cephalexin Rash Erythromycin Rash Hctz [Thiazides] Other: See Comments leg cramps Ivp Dye [Iodine] Rash Norvasc [Amlodipine* Swelling hydrALAZINE (APRESOLINE) 10 mg tablet Take 1 tablet by mouth three times a day. losartan (COZAAR) 50 mg tablet Take 1 tablet by mouth two times a day. carvedilol (COREG) 12.5 mg tablet Take 12.5 mg by mouth two times a day with meals. atorvastatin (LIPITOR) 20 mg tablet Take 1 tablet by mouth every 48 hours. levothyroxine (LEVOXYL) 25 mcg tablet Take 1 tablet by mouth once daily. Take on empty stomach. For Thyroid omeprazole (PRILOSEC) 40 mg capsule Take 1 capsule by mouth daily before breakfast. 1/2 hr before meal. alendronate (FOSAMAX) 70 mg tablet Take 1 tablet by mouth one time a week. In AM with cup of water on empty stomach. Nothing else by mouth and stay upright for 30 min. potassium chloride (K-TAB) 10 mEq tablet Take 1 tablet by mouth twice daily. furosemide (LASIX) 20 mg tablet Take 1 tablet by mouth every other day. Spirometers and Accessories magdalena Use 3 times a day, each time blow into it for 10 reps XARELTO 15 mg tablet Take 15 mg by mouth daily with dinner. brimonidine (ALPHAGAN P) 0.15 % ophthalmic solution Use 1 Drop in the right eye twice daily. timolol maleate (TIMOPTIC) 0.5 % ophthalmic solution Use 1 Drop in the right eye twice daily. clobetasol (TEMOVATE) 0.05 % ointment Apply 1 application to affected area twice daily. TO AFFECTED AREA. >Zippered Compression Knee High 30-40 mm custom CUSTOM MEASURE FOR KNEE HIGH ANGELO COMPRESSION STOCKINGS, 30-40 MM, WITH ZIPPERS PLEASE. IF UNABLE, PLEASE REFER TO BALA AT [facility]. DX: EDEMA latanoprost (XALATAN) 0.005 % ophthalmic solution 1 Drop daily at bedtime. clobetasol (TEMOVATE) 0.05 % ointment Apply 1 application to affected area 3 times a WEEK. TO AFFECTED AREA. brimonidine-timolol (COMBIGAN) 0.2-0.5 % ophthalmic solution Use in both eyes. TRAVATAN Z 0.004 % Drop daily at bedtime. Cholecalciferol, Vitamin D3, 2,000 unit ORAL Cap Take one(1) tablet two(2) times daily. calcium carbonate(CALTRATE 600 600 MG (1,500 MG) TAB) Take one(1) tablet twice daily. PAST MEDICAL HISTORY Diagnosis Date Acquired keratoderma Lichen sclerosis Anemia Anticoagulant long-term use indication: stroke prevention atrial fibrillation At risk for bleeding associated with anticoagulants HAS-BLED score = 2 (age, bleeding) At risk for stroke [id number] = 4 (HTN, age2, female gender) Benign neoplasm of colon Bilateral lower extremity edema BMI 29.0-29.9,adult 09/25/2015 Circumscribed scleroderma CKD (chronic kidney disease) Disorder of bone and cartilage, unspecified DICKERSON (dyspnea on exertion) Elevated liver enzymes Essential hypertension Gastrointestinal hemorrhage, unspecified Glaucoma Hemorrhage of rectum and anus Hernia History of GI bleed HLD (hyperlipidemia) Lymphedema of both lower extremities Near syncope Obesity, unspecified Osteoporosis, unspecified Other and unspecified hyperlipidemia PAF (paroxysmal atrial fibrillation) (HCC) Palpitations Permanent atrial fibrillation (HCC) Personal history of colonic polyps 09/20/2014 Pneumonia Stage 3b chronic kidney disease (CKD) (HCC) Sweat, sweating, excessive Umbilical hernia 12/22/2012 Unspecified essential hypertension Social History Tobacco Use Smoking status: Former Years: 5 Types: Cigarettes Quit date: 07/06/1976 Years since quittin.9 Smokeless tobacco: Never Tobacco comments: Quit 1970's 4-5 cig per day Vaping Use Vaping Use: Never used Substance Use Topics Alcohol use: No Drug use: No ASSESSMENT/PLAN: 1. Hypertensive kidney disease with stage 3b chronic kidney disease (HCC) - ICD9: 403.90, 585.3, ICD10: I12.9, N18.32 Blood pressure is suboptimally controlled. She has atrial fibrillation for which she is seeing Dr. Giles. Kidney disease which is seeing Dr. Sewell. Prior intolerance of amlodipine. There is room to increase hydralazine dose, will increase from 3 times daily to 4 times daily dosing. She and daughter notes some fatigue when blood pressure is in 130s at home. Note heart rate is typically in the 50s when this occurs. She may not be tolerating the decreased heart rate, may need to reduce dose of carvedilol at her next visit. She request refill of furosemide for minor ankle swelling which she takes every other day. States Dr. Sewell is encouraging her to decrease /discontinue this. Will refill x 1. 1-4 week recheck BP, HR - FUROSEMIDE 20 MG TABLET - HYDRALAZINE 10 MG TABLET Advised: Increase hydralazine from 10 mg 3 times daily to 10 mg 4 times daily. Check blood pressure and heart rate daily and write down results. Okay to reduce to hydralazine 3 times daily if blood pressure in the 120-130 systolic range (top blood pressure number) or feeling dizzy or fatigued. Enriqueta Marshall APRN.CNS Medical Decision Making: Problems: Moderate: 1+ chronic illnesses with change Risk: Moderate: Drug management Medical Decision Making Level: 4 - Moderate documented in this encounter [facility] 05-07-2023 Miscellaneous Notes Patient calling about hydralazine. Advised patient to check with pharmacy. documented in this encounter [facility] 05-01-2023 Note HNO ID: [id number] Author: Toshia Drake APRN.CAB STARTER Service: ? Author Type: Nurse Practitioner Type: Progress Notes Filed: 05/04/2023 7:34 AM Note Text: CC Patient presents with: 2 week follow up - blood pressure HPI Reinier Stoner is a 87 year old female who presents to the office for blood pressure. Her visit today is for follow-up. Patient was last seen for this approximately 2 weeks ago. Medication changes: Yes hydralazine increased to TID Taking all medications as prescribed: Yes Side effects: No Home BP's: Yes average in the 130's/70's in the mornings and 150's/70's in the afternoon. She had an appointment with her recreation therapist yesterday, BP was 130/68. She brought her home machine for validation however when the nurse checked with the machine it kept reading error. Denies: headache, chest pain, palpitations, dyspnea, and peripheral edema. Last 4 Encounter BP Readings: Date: BP: 05/01/2023 172/74[bp sasha average[ 04/15/2023 200/78[manual in left arm[ 04/09/2023 189/72[BP Sasha[ 01/27/2023 165/77 Last 3 Encounter Wt Readings: Date: Wt: 05/01/2023 61.7 kg (136 lb) 04/15/2023 59 kg (130 lb) 04/09/2023 60.8 kg (134 lb) REVIEW OF SYSTEMS See HPI PAST MEDICAL HISTORY Diagnosis Date Acquired keratoderma Lichen sclerosis Anemia Anticoagulant long-term use indication: stroke prevention atrial fibrillation At risk for bleeding associated with anticoagulants HAS-BLED score = 2 (age, bleeding) At risk for stroke [id number] = 4 (HTN, age2, female gender) Benign neoplasm of colon Bilateral lower extremity edema BMI 29.0-29.9,adult 09/25/2015 Circumscribed scleroderma CKD (chronic kidney disease) Disorder of bone and cartilage, unspecified DICKERSON (dyspnea on exertion) Elevated liver enzymes Essential hypertension Gastrointestinal hemorrhage, unspecified Glaucoma Hemorrhage of rectum and anus Hernia History of GI bleed HLD (hyperlipidemia) Lymphedema of both lower extremities Near syncope Obesity, unspecified Osteoporosis, unspecified Other and unspecified hyperlipidemia PAF (paroxysmal atrial fibrillation) (HCC) Palpitations Permanent atrial fibrillation (HCC) Personal history of colonic polyps 09/20/2014 Pneumonia Stage 3b chronic kidney disease (CKD) (HCC) Sweat, sweating, excessive Umbilical hernia 12/22/2012 Unspecified essential hypertension PAST SURGICAL HISTORY Procedure Laterality Date COLONOSCOPY FLX DX W/COLLJ SPEC WHEN PFRMD 01/09/2003 Colonoscopy w/ polypectomy COLONOSCOPY FLX DX W/COLLJ SPEC WHEN PFRMD 10/10/2014 Colonoscopy COLSC FLX W/RMVL OF TUMOR POLYP LESION SNARE TQ 10/24/2008 HYSTEROSCOPY, DIAGNOSTIC (SEPARATE 08/21/1998 Hysteroscopy LEFT HEART CATH,PERCUTANEOUS Left 02/05/2018 LIG/TRNSXJ FLP TUBE ABDL/VAG APPR UNI/BI 1976 Tubal ligation PAST SURGICAL HISTORY OF 09/2000 CARDIAC CATH. PAST SURGICAL HISTORY OF 05/2012, 2019 Glaucoma - May. right eye Jun. left eye - [facility] . Dr Gao REPAIR FIRST ABDOMINAL WALL HERNIA 12/14/2012 2cm defect - Parietex Composite ventral patch 6cm STRESS TEST 04/14/2017 [facility]WAN 02/04/2018 ALLERGIES Amantadine, Capoten [Captopril], Cephalexin, Erythromycin, Hctz [Thiazides], Ivp Dye [Iodine], and Norvasc [Amlodipine Besylate] MEDICATIONS carvedilol (COREG) 12.5 mg tablet Take 12.5 mg by mouth two times a day with meals. hydrALAZINE (APRESOLINE) 10 mg tablet Take 1 tablet by mouth three times a day. atorvastatin (LIPITOR) 20 mg tablet Take 1 tablet by mouth every 48 hours. levothyroxine (LEVOXYL) 25 mcg tablet Take 1 tablet by mouth once daily. Take on empty stomach. For Thyroid omeprazole (PRILOSEC) 40 mg capsule Take 1 capsule by mouth daily before breakfast. 1/2 hr before meal. alendronate (FOSAMAX) 70 mg tablet Take 1 tablet by mouth one time a week. In AM with cup of water on empty stomach. Nothing else by mouth and stay upright for 30 min. potassium chloride (K-TAB) 10 mEq tablet Take 1 tablet by mouth twice daily. furosemide (LASIX) 20 mg tablet Take 1 tablet by mouth every other day. losartan (COZAAR) 50 mg tablet take 1 tablet by mouth once daily (Patient taking differently: Take 50 mg by mouth twice daily.) Spirometers and Accessories magdalena Use 3 times a day, each time blow into it for 10 reps XARELTO 15 mg tablet Take 15 mg by mouth daily with dinner. brimonidine (ALPHAGAN P) 0.15 % ophthalmic solution Use 1 Drop in the right eye twice daily. timolol maleate (TIMOPTIC) 0.5 % ophthalmic solution Use 1 Drop in the right eye twice daily. clobetasol (TEMOVATE) 0.05 % ointment Apply 1 application to affected area twice daily. TO AFFECTED AREA. >Zippered Compression Knee High 30-40 mm custom CUSTOM MEASURE FOR KNEE HIGH ANGELO COMPRESSION STOCKINGS, 30-40 MM, WITH ZIPPERS PLEASE. IF UNABLE, PLEASE REFER TO BALA AT [facility]. DX: EDEMA latanoprost (XALATAN) 0.005 % ophthalmic solution 1 Drop daily at bedtime. clob (more content not included)... [facility] 05-01-2023 History of Presen t illness Narrative CC Patient presents with: 2 week follow up - blood pressure HPI Reinier Stoner is a 87 year old female who presents to the office for blood pressure. Her visit today is for follow-up. Patient was last seen for this approximately 2 weeks ago. Medication changes: Yes hydralazine increased to TID Taking all medications as prescribed: Yes Side effects: No Home BP's: Yes average in the 130's/70's in the mornings and 150's/70's in the afternoon. She had an appointment with her recreation therapist yesterday, BP was 130/68. She brought her home machine for validation however when the nurse checked with the machine it kept reading error. Denies: headache, chest pain, palpitations, dyspnea, and peripheral edema. Last 4 Encounter BP Readings: Date: BP: 05/01/2023 172/74[bp sasha average[ 04/15/2023 200/78[manual in left arm[ 04/09/2023 189/72[BP Sasha[ 01/27/2023 165/77 Last 3 Encounter Wt Readings: Date: Wt: 05/01/2023 61.7 kg (136 lb) 04/15/2023 59 kg (130 lb) 04/09/2023 60.8 kg (134 lb) REVIEW OF SYSTEMS See HPI PAST MEDICAL HISTORY Diagnosis Date Acquired keratoderma Lichen sclerosis Anemia Anticoagulant long-term use indication: stroke prevention atrial fibrillation At risk for bleeding associated with anticoagulants HAS-BLED score = 2 (age, bleeding) At risk for stroke [id number] = 4 (HTN, age2, female gender) Benign neoplasm of colon Bilateral lower extremity edema BMI 29.0-29.9,adult 09/25/2015 Circumscribed scleroderma CKD (chronic kidney disease) Disorder of bone and cartilage, unspecified DICKERSON (dyspnea on exertion) Elevated liver enzymes Essential hypertension Gastrointestinal hemorrhage, unspecified Glaucoma Hemorrhage of rectum and anus Hernia History of GI bleed HLD (hyperlipidemia) Lymphedema of both lower extremities Near syncope Obesity, unspecified Osteoporosis, unspecified Other and unspecified hyperlipidemia PAF (paroxysmal atrial fibrillation) (HCC) Palpitations Permanent atrial fibrillation (HCC) Personal history of colonic polyps 09/20/2014 Pneumonia Stage 3b chronic kidney disease (CKD) (HCC) Sweat, sweating, excessive Umbilical hernia 12/22/2012 Unspecified essential hypertension PAST SURGICAL HISTORY Procedure Laterality Date COLONOSCOPY FLX DX W/COLLJ SPEC WHEN PFRMD 01/09/2003 Colonoscopy w/ polypectomy COLONOSCOPY FLX DX W/COLLJ SPEC WHEN PFRMD 10/10/2014 Colonoscopy COLSC FLX W/RMVL OF TUMOR POLYP LESION SNARE TQ 10/24/2008 HYSTEROSCOPY, DIAGNOSTIC (SEPARATE 08/21/1998 Hysteroscopy LEFT HEART CATH,PERCUTANEOUS Left 02/05/2018 LIG/TRNSXJ FLP TUBE ABDL/VAG APPR UNI/BI 1976 Tubal ligation PAST SURGICAL HISTORY OF 09/2000 CARDIAC CATH. PAST SURGICAL HISTORY OF 2018 Glaucoma - May. right eye left eye - [facility] . Dr Gao REPAIR FIRST ABDOMINAL WALL HERNIA 12/14/2012 2cm defect - Parietex Composite ventral patch 6cm STRESS TEST 04/14/2017 [facility] 02/04/2018 ALLERGIES Amantadine, Capoten [Captopril], Cephalexin, Erythromycin, Hctz [Thiazides], Ivp Dye [Iodine], and Norvasc [Amlodipine Besylate] MEDICATIONS carvedilol (COREG) 12.5 mg tablet Take 12.5 mg by mouth two times a day with meals. hydrALAZINE (APRESOLINE) 10 mg tablet Take 1 tablet by mouth three times a day. atorvastatin (LIPITOR) 20 mg tablet Take 1 tablet by mouth every 48 hours. levothyroxine (LEVOXYL) 25 mcg tablet Take 1 tablet by mouth once daily. Take on empty stomach. For Thyroid omeprazole (PRILOSEC) 40 mg capsule Take 1 capsule by mouth daily before breakfast. 1/2 hr before meal. alendronate (FOSAMAX) 70 mg tablet Take 1 tablet by mouth one time a week. In AM with cup of water on empty stomach. Nothing else by mouth and stay upright for 30 min. potassium chloride (K-TAB) 10 mEq tablet Take 1 tablet by mouth twice daily. furosemide (LASIX) 20 mg tablet Take 1 tablet by mouth every other day. losartan (COZAAR) 50 mg tablet take 1 tablet by mouth once daily (Patient taking differently: Take 50 mg by mouth twice daily.) Spirometers and Accessories magdalena Use 3 times a day, each time blow into it for 10 reps XARELTO 15 mg tablet Take 15 mg by mouth daily with dinner. brimonidine (ALPHAGAN P) 0.15 % ophthalmic solution Use 1 Drop in the right eye twice daily. timolol maleate (TIMOPTIC) 0.5 % ophthalmic solution Use 1 Drop in the right eye twice daily. clobetasol (TEMOVATE) 0.05 % ointment Apply 1 application to affected area twice daily. TO AFFECTED AREA. >Zippered Compression Knee High 30-40 mm custom CUSTOM MEASURE FOR KNEE HIGH ANGELO COMPRESSION STOCKINGS, 30-40 MM, WITH ZIPPERS PLEASE. IF UNABLE, PLEASE REFER TO BALA AT [facility]. DX: EDEMA latanoprost (XALATAN) 0.005 % ophthalmic solution 1 Drop daily at bedtime. clobetasol (TEMOVATE) 0.05 % ointment Apply 1 application to affected area 3 times a WEEK. TO AFFECTED AREA. brimonidine-timolol (COMBIGAN) 0.2-0.5 % ophthalmic solution Use in both eyes. TRAVATAN Z 0.004 % Drop daily at bedtime. Cholecalciferol, Vitamin D3, 2,000 unit ORAL Cap Take one(1) tablet two(2) times daily. calcium carbonate(CALTRATE 600 600 MG (1,500 MG) TAB) Take one(1) tablet twice daily. FAMILY HISTORY Problem Relation Age of Onset Heart Mother Hypertension Mother Ischemic Heart Disease Mother Hypertension Father Ischemic Heart Disease Father Heart Sister By-pass, Triple Ischemic Heart Disease Sister Heart Brother Stent Ischemic Heart Disease Brother Glaucoma Brother other (Renal Stones) Daughter Heart Maternal Aunt Social History Tobacco Use Smoking status: Former Years: 5 Types: Cigarettes Quit date: 07/06/1976 Years since quittin.8 Smokeless tobacco: Never Tobacco comments: Quit 1969' 4-5 cig per day Vaping Use Vaping Use: Never used Substance Use Topics Alcohol use: No Drug use: No PHYSICAL EXAM BP 172/74 Pulse 60 Resp 14 Wt 61.7 kg (136 lb) BMI 24.87 kg/m General Appearance: well appearing, in no acute distress, alert Pysch: mood and affect broad and appropriate Lungs: Lungs clear to auscultation. No wheezing, rhonchi, rales. Heart: RRR without murmur, gallop, or rubs. No ectopy DATA REVIEWED: Most recent labs ASSESSMENT/PLAN: 1. Essential hypertension - ICD9: 401.9, ICD10: I10 - improving control per home blood pressure readings. BP continues to remain elevated in the office however it has improved from previous two weeks ago- Continue current medications - Recommend home blood pressure monitoring, to bring results to next visit - Encouraged sodium restriction, DASH or Mediterranean diet - Recommend regular aerobic exercise - follow-up in 4 weeks for recheck Prescription instructions reviewed with patient as applicable. Potential red flag symptoms discussed with the patient. Reviewed appropriate action plan to take if red flag symptoms occur. Patient agreeable to treatment plan Toshia Drake APRN.CNP documented in this encounter [facility] 04-15-2023 Note HNO ID: [id number] Author: Alessio Alexander PA-C Service: ? Author Type: Physician Assistant Professor Of History Type: Progress Notes Filed: 04/15/2023 5:01 PM Note Text: CC: Patient presents with: Follow Up: blood pressure- elevated and check home bp monitor HPI Reinier Stoner is a 87 year old female who presents today for 1 week follow-up elevated blood pressure, and wanting to f/u on XR thoracic spine. Last visit was on 04/09/2023 with Jesusita Drake CNP and at that time blood pressure was elevated at 189/72. Notes that she is more anxious about her daughter coming into town tomorrow and she hasn't seen her for almost a year. REVIEW OF SYSTEMS CARDIOVASCULAR: Negative for chest pain, leg swelling and palpitations All other systems negative. PAST MEDICAL HISTORY Diagnosis Date Acquired keratoderma Lichen sclerosis Anemia Anticoagulant long-term use indication: stroke prevention atrial fibrillation At risk for bleeding associated with anticoagulants HAS-BLED score = 2 (age, bleeding) At risk for stroke [id number] = 4 (HTN, age2, female gender) Benign neoplasm of colon Bilateral lower extremity edema BMI 29.0-29.9,adult 09/25/2015 Circumscribed scleroderma CKD (chronic kidney disease) Disorder of bone and cartilage, unspecified DICKERSON (dyspnea on exertion) Elevated liver enzymes Essential hypertension Gastrointestinal hemorrhage, unspecified Glaucoma Hemorrhage of rectum and anus Hernia History of GI bleed HLD (hyperlipidemia) Lymphedema of both lower extremities Near syncope Obesity, unspecified Osteoporosis, unspecified Other and unspecified hyperlipidemia PAF (paroxysmal atrial fibrillation) (HCC) Palpitations Permanent atrial fibrillation (HCC) Personal history of colonic polyps 09/20/2014 Pneumonia Stage 3b chronic kidney disease (CKD) (HCC) Sweat, sweating, excessive Umbilical hernia 12/22/2012 Unspecified essential hypertension PAST SURGICAL HISTORY Procedure Laterality Date COLONOSCOPY FLX DX W/COLLJ SPEC WHEN PFRMD 01/09/2003 Colonoscopy w/ polypectomy COLONOSCOPY FLX DX W/COLLJ SPEC WHEN PFRMD 10/10/2014 Colonoscopy COLSC FLX W/RMVL OF TUMOR POLYP LESION SNARE TQ 10/24/2008 HYSTEROSCOPY, DIAGNOSTIC (SEPARATE 08/21/1998 Hysteroscopy LEFT HEART CATH,PERCUTANEOUS Left 02/05/2018 LIG/TRNSXJ FLP TUBE ABDL/VAG APPR UNI/BI 1976 Tubal ligation PAST SURGICAL HISTORY OF 09/2000 CARDIAC CATH. PAST SURGICAL HISTORY OF 2018 Glaucoma - right eye left eye - [facility] . Dr Gao REPAIR FIRST ABDOMINAL WALL HERNIA 12/14/2012 2cm defect - Parietex Composite ventral patch 6cm STRESS TEST 04/14/2017 [facility] 02/04/2018 ALLERGIES Amantadine, Capoten [Captopril], Cephalexin, Erythromycin, Hctz [Thiazides], Ivp Dye [Iodine], and Norvasc [Amlodipine Besylate] MEDICATIONS atorvastatin (LIPITOR) 20 mg tablet Take 1 tablet by mouth every 48 hours. levothyroxine (LEVOXYL) 25 mcg tablet Take 1 tablet by mouth once daily. Take on empty stomach. For Thyroid omeprazole (PRILOSEC) 40 mg capsule Take 1 capsule by mouth daily before breakfast. 1/2 hr before meal. hydrALAZINE (APRESOLINE) 10 mg tablet Take 1 tablet by mouth twice daily. alendronate (FOSAMAX) 70 mg tablet Take 1 tablet by mouth one time a week. In AM with cup of water on empty stomach. Nothing else by mouth and stay upright for 30 min. potassium chloride (K-TAB) 10 mEq tablet Take 1 tablet by mouth twice daily. furosemide (LASIX) 20 mg tablet Take 1 tablet by mouth every other day. losartan (COZAAR) 50 mg tablet take 1 tablet by mouth once daily (Patient taking differently: Take 50 mg by mouth twice daily.) carvedilol (COREG) 3.125 mg tablet Take 1 tablet by mouth twice daily. Spirometers and Accessories magdalena Use 3 times a day, each time blow into it for 10 reps XARELTO 15 mg tablet Take 15 mg by mouth daily with dinner. brimonidine (ALPHAGAN P) 0.15 % ophthalmic solution Use 1 Drop in the right eye twice daily. timolol maleate (TIMOPTIC) 0.5 % ophthalmic solution Use 1 Drop in the right eye twice daily. clobetasol (TEMOVATE) 0.05 % ointment Apply 1 application to affected area twice daily. TO AFFECTED AREA. >Zippered Compression Knee High 30-40 mm custom CUSTOM MEASURE FOR KNEE HIGH ANGELO COMPRESSION STOCKINGS, 30-40 MM, WITH ZIPPERS PLEASE. IF UNABLE, PLEASE REFER TO BALA AT [facility]. DX: EDEMA latanoprost (XALATAN) 0.005 % ophthalmic solution 1 Drop daily at bedtime. clobetasol (TEMOVATE) 0.05 % ointment Apply 1 application to affected area 3 times a WEEK. TO AFFECTED AREA. brimonidine-timolol (COMBIGAN) 0.2-0.5 % ophthalmic solution Use in both eyes. TRAVATAN Z 0.004 % Drop daily at bedtime. Cholecalciferol, Vitamin D3, 2,000 unit ORAL Cap Take one(1) tablet two(2) times daily. calcium carbonate(CALTRATE 600 600 MG (1,500 MG) TAB) Take one(1) tablet twice daily. FAMILY HISTORY Problem Relation Age of Onset Heart Mother (more content not included)... [facility] 04-15-2023 Instructions Alessio Alexander PA-C - 04/15/2023 3:45 PM EDT TrueBP average on the machine 217/67 - left arm sitting. Manual recheck 200/78 Continue on Carvedilol 12.5 mg twice daily, Losartan 50 mg twice daily. Will increase hydralazine to 10 mg three times daily. documented in this encounter [facility] 04-15-2023 History of Presen t illness Narrative CC: Patient presents with: Follow Up: blood pressure- elevated and check home bp monitor HPI Reinier Stoner is a 87 year old female who presents today for 1 week follow-up elevated blood pressure, and wanting to f/u on XR thoracic spine. Last visit was on 04/09/2023 with Jesusita Drake CNP and at that time blood pressure was elevated at 189/72. Notes that she is more anxious about her daughter coming into town tomorrow and she hasn't seen her for almost a year. REVIEW OF SYSTEMS CARDIOVASCULAR: Negative for chest pain, leg swelling and palpitations All other systems negative. PAST MEDICAL HISTORY Diagnosis Date Acquired keratoderma Lichen sclerosis Anemia Anticoagulant long-term use indication: stroke prevention atrial fibrillation At risk for bleeding associated with anticoagulants HAS-BLED score = 2 (age, bleeding) At risk for stroke [id number] = 4 (HTN, age2, female gender) Benign neoplasm of colon Bilateral lower extremity edema BMI 29.0-29.9,adult 09/25/2015 Circumscribed scleroderma CKD (chronic kidney disease) Disorder of bone and cartilage, unspecified DICKERSON (dyspnea on exertion) Elevated liver enzymes Essential hypertension Gastrointestinal hemorrhage, unspecified Glaucoma Hemorrhage of rectum and anus Hernia History of GI bleed HLD (hyperlipidemia) Lymphedema of both lower extremities Near syncope Obesity, unspecified Osteoporosis, unspecified Other and unspecified hyperlipidemia PAF (paroxysmal atrial fibrillation) (HCC) Palpitations Permanent atrial fibrillation (HCC) Personal history of colonic polyps 09/20/2014 Pneumonia Stage 3b chronic kidney disease (CKD) (HCC) Sweat, sweating, excessive Umbilical hernia 12/22/2012 Unspecified essential hypertension PAST SURGICAL HISTORY Procedure Laterality Date COLONOSCOPY FLX DX W/COLLJ SPEC WHEN PFRMD 01/09/2003 Colonoscopy w/ polypectomy COLONOSCOPY FLX DX W/COLLJ SPEC WHEN PFRMD 10/10/2014 Colonoscopy COLSC FLX W/RMVL OF TUMOR POLYP LESION SNARE TQ 10/24/2008 HYSTEROSCOPY, DIAGNOSTIC (SEPARATE 08/21/1998 Hysteroscopy LEFT HEART CATH,PERCUTANEOUS Left 02/05/2018 LIG/TRNSXJ FLP TUBE ABDL/VAG APPR UNI/BI 1976 Tubal ligation PAST SURGICAL HISTORY OF 09/2000 CARDIAC CATH. PAST SURGICAL HISTORY OF 05/2012, 2019 Glaucoma - right eye Jun. left eye - [facility] . Dr Gao REPAIR FIRST ABDOMINAL WALL HERNIA 12/14/2012 2cm defect - Parietex Composite ventral patch 6cm STRESS TEST 04/14/2017 PAWAN 02/04/2018 ALLERGIES Amantadine, Capoten [Captopril], Cephalexin, Erythromycin, Hctz [Thiazides], Ivp Dye [Iodine], and Norvasc [Amlodipine Besylate] MEDICATIONS atorvastatin (LIPITOR) 20 mg tablet Take 1 tablet by mouth every 48 hours. levothyroxine (LEVOXYL) 25 mcg tablet Take 1 tablet by mouth once daily. Take on empty stomach. For Thyroid omeprazole (PRILOSEC) 40 mg capsule Take 1 capsule by mouth daily before breakfast. 1/2 hr before meal. hydrALAZINE (APRESOLINE) 10 mg tablet Take 1 tablet by mouth twice daily. alendronate (FOSAMAX) 70 mg tablet Take 1 tablet by mouth one time a week. In AM with cup of water on empty stomach. Nothing else by mouth and stay upright for 30 min. potassium chloride (K-TAB) 10 mEq tablet Take 1 tablet by mouth twice daily. furosemide (LASIX) 20 mg tablet Take 1 tablet by mouth every other day. losartan (COZAAR) 50 mg tablet take 1 tablet by mouth once daily (Patient taking differently: Take 50 mg by mouth twice daily.) carvedilol (COREG) 3.125 mg tablet Take 1 tablet by mouth twice daily. Spirometers and Accessories magdalena Use 3 times a day, each time blow into it for 10 reps XARELTO 15 mg tablet Take 15 mg by mouth daily with dinner. brimonidine (ALPHAGAN P) 0.15 % ophthalmic solution Use 1 Drop in the right eye twice daily. timolol maleate (TIMOPTIC) 0.5 % ophthalmic solution Use 1 Drop in the right eye twice daily. clobetasol (TEMOVATE) 0.05 % ointment Apply 1 application to affected area twice daily. TO AFFECTED AREA. >Zippered Compression Knee High 30-40 mm custom CUSTOM MEASURE FOR KNEE HIGH ANGELO COMPRESSION STOCKINGS, 30-40 MM, WITH ZIPPERS PLEASE. IF UNABLE, PLEASE REFER TO BALA AT [facility]. DX: EDEMA latanoprost (XALATAN) 0.005 % ophthalmic solution 1 Drop daily at bedtime. clobetasol (TEMOVATE) 0.05 % ointment Apply 1 application to affected area 3 times a WEEK. TO AFFECTED AREA. brimonidine-timolol (COMBIGAN) 0.2-0.5 % ophthalmic solution Use in both eyes. TRAVATAN Z 0.004 % Drop daily at bedtime. Cholecalciferol, Vitamin D3, 2,000 unit ORAL Cap Take one(1) tablet two(2) times daily. calcium carbonate(CALTRATE 600 600 MG (1,500 MG) TAB) Take one(1) tablet twice daily. FAMILY HISTORY Problem Relation Age of Onset Heart Mother Hypertension Mother Ischemic Heart Disease Mother Hypertension Father Ischemic Heart Disease Father Heart Sister By-pass, Triple Ischemic Heart Disease Sister Heart Brother Stent Ischemic Heart Disease Brother Glaucoma Brother other (Renal Stones) Daughter Heart Maternal Aunt Social History Tobacco Use Smoking status: Former Years: 5 Types: Cigarettes Quit date: 07/06/1976 Years since quittin.8 Smokeless tobacco: Never Tobacco comments: Quit 1969' 4-5 cig per day Vaping Use Vaping Use: Never used Substance Use Topics Alcohol use: No Drug use: No PHYSICAL EXAM BP 200/78 (BP Site: Left Arm, BP Position: Sitting, BP Cuff Size: Large Adult) Pulse 64 Temp 36.2 C (97.2 F) Resp 12 Ht 157.5 cm (5' 2 ) Wt 59 kg (130 lb) SpO2 99% BMI 23.78 kg/m General Appearance: well appearing, in no acute distress, alert Pysch: mood and affect broad and appropriate Skin: Skin color, texture, turgor normal for age; Head: normocephalic, atraumatic Lymph nodes: No cervical lymphadenopathy Lungs: Lungs clear to auscultation. No wheezing, rhonchi, rales. Heart: RRR without murmur, gallop, or rubs. No ectopy Abdomen: Normal abdominal exam Extremities: No gross deformities, significant edema, skin discoloration, clubbing or cyanosis. Neurological: Gait normal. No focal neurological deficits. Sensation grossly intact. ASSESSMENT/PLAN: 1. Hypertensive kidney disease with stage 3b chronic kidney disease (HCC) - ICD9: 403.90, 585.3, ICD10: I12.9, N18.32 - Worsening control - Increase seen to 10 mg 3 times daily. Follow-up as planned with kidney medicine tomorrow. - Recommend home blood pressure monitoring, to bring results to next visit - Encouraged sodium restriction, DASH or Mediterranean diet - Recommend regular aerobic exercise - CARVEDILOL 12.5 MG TABLET - HYDRALAZINE 10 MG TABLET Follow-up for blood pressure recheck in 2 weeks. Prescription instructions reviewed with patient as applicable. Potential red flag symptoms discussed with the patient. Reviewed appropriate action plan to take if red flag symptoms occur. Patient agreeable to treatment plan. Alessio Alexander PA-C documented in this encounter [facility] 04-15-2023 Nurse Note Home BP monitor left arm :Error code E2, patient did not bring monitor book with her to know what the error code is documented in this encounter [facility] 04-10-2023 Miscellaneous Notes TC to patient who verbalized understanding of providers message below and has no questions at this time. FREDDY Chavez ----- Message from Jesusita Drake APRN.CAB STARTER sent at 04/10/2023 6:59 AM EDT ----- Please let patient know blood work is all within acceptable ranges. HgbA1c is now in normal range Thank you Jesusita Drake APRN.CAB STARTER documented in this encounter [facility] 04-09-2023 Note HNO ID: [id number] Author: Kirstie Arguello, RT(R) Service: Radiology Author Type: Technologist Type: Progress Notes Filed: 04/09/2023 1:30 PM Note Text: Radiology Service Progress Note PATIENT NAME: Reinier Stoner DATE OF SERVICE: April 09, 2023 TIME: 1:18 PM PATIENT IDENTITY VERIFICATION COMPLETED USING TWO (2) IDENTIFIERS: Name and Date of confirmed by patient verbally. FALL SCREENING: Has the patient had 2 falls in the last year or 1 fall with injury or currently using an Ambulatory Assistive Device (Walker, Cane, Wheelchair, Crutches, etc.)? No PATIENT GENDER DATA: Female. status: : No status: NO. PATIENT RELEVANT IMPLANT DATA REVIEWED: Yes RADIOLOGY DEPARTMENT: General X-ray: Exam(s) Completed: Spine X-Ray(s): Thoracic PERIPHERAL IV DATA: Not applicable SIGNED BY: Kirstie Arguello RT(R) April 09, 2023 1:18 PM [facility] 04-09-2023 Note HNO ID: [id number] Author: Jesusita Drake APRN.CAB STARTER Service: ? Author Type: Nurse Practitioner Type: Progress Notes Filed: 04/15/2023 7:30 AM Note Text: CC: Patient presents with: Recheck: 3 month follow up Immunizations: Flu vaccination HPI Reinier Stoner is a 87 year old female who presents today for routine follow up. HTN and HLD: Ms. Stoner indicates that she is feeling well and denies any symptoms referable to elevated blood pressure. Specifically denies headache, chest pain, palpitations, dyspnea, and peripheral edema. Patient denies any side effects of her medication(s) and is compliant with their regimen. She does check BP's away from this office with average BP's in the 110s-130s/50s-60s range. Reinier denies regular aerobic exercise but does have a cycle machine she uses sometimes. She watches her diet for sodium, low fat and low cholesterol most of the time. Last 3 Encounter BP Readings: Date: BP: 04/09/2023 189/72[BP Sasha[ 01/27/2023 165/77 01/07/2023 140/70 Osteoporosis: Has been on fosamax since 2014. Only fractures were left wrist and right foot which were years ago. Was last checked in 2019 with osteopenia and now with osteoporosis, signifincant decrease in bone loss even with being on the fosamax. Has had intermittent ache and tiredness to mid back that occurs when she tries to clean her house. Denies injury, fever, chills, falls, weakness, numbness, abdominal pain, loss of bowel/bladder control. Hypothyroidism: Takes medication as prescribed denies abnormal change in weight or energy REVIEW OF SYSTEMS General: no fevers, no chills, no night sweats, no recurrent infections, no change in appetite, no change in energy, and no significant changes in weight Respiratory: no cough, no wheezing, no shortness of breath, no hemoptysis Cardiovascular: no chest pain, no chest pressure, no palpitations, and no swelling GI: No nausea, vomiting, or diarrhea Endocrine: no fatigue, no polyuria, no polyphagia, and no polydipsia Neurologic: No headache, weakness, numbness, tingling, dizziness, memory loss, syncope. PAST MEDICAL HISTORY Diagnosis Date Acquired keratoderma Lichen sclerosis Anemia Anticoagulant long-term use indication: stroke prevention atrial fibrillation At risk for bleeding associated with anticoagulants HAS-BLED score = 2 (age, bleeding) At risk for stroke [id number] = 4 (HTN, age2, female gender) Benign neoplasm of colon Bilateral lower extremity edema BMI 29.0-29.9,adult 09/25/2015 Circumscribed scleroderma CKD (chronic kidney disease) Disorder of bone and cartilage, unspecified DICKERSON (dyspnea on exertion) Elevated liver enzymes Essential hypertension Gastrointestinal hemorrhage, unspecified Glaucoma Hemorrhage of rectum and anus Hernia History of GI bleed HLD (hyperlipidemia) Lymphedema of both lower extremities Near syncope Obesity, unspecified Osteoporosis, unspecified Other and unspecified hyperlipidemia PAF (paroxysmal atrial fibrillation) (HCC) Palpitations Permanent atrial fibrillation (HCC) Personal history of colonic polyps 09/20/2014 Pneumonia Stage 3b chronic kidney disease (CKD) (HCC) Sweat, sweating, excessive Umbilical hernia 12/22/2012 Unspecified essential hypertension PAST SURGICAL HISTORY Procedure Laterality Date COLONOSCOPY FLX DX W/COLLJ SPEC WHEN PFRMD 01/09/2003 Colonoscopy w/ polypectomy COLONOSCOPY FLX DX W/COLLJ SPEC WHEN PFRMD 10/10/2014 Colonoscopy COLSC FLX W/RMVL OF TUMOR POLYP LESION SNARE TQ 10/24/2008 HYSTEROSCOPY, DIAGNOSTIC (SEPARATE 08/21/1998 Hysteroscopy LEFT HEART CATH,PERCUTANEOUS Left 02/05/2018 LIG/TRNSXJ FLP TUBE ABDL/VAG APPR UNI/BI 1976 Tubal ligation PAST SURGICAL HISTORY OF 09/2000 CARDIAC CATH. PAST SURGICAL HISTORY OF 05/2012, 2018 Glaucoma - right eye left eye - [facility] . Dr Gao REPAIR FIRST ABDOMINAL WALL HERNIA 12/14/2012 2cm defect - Parietex Composite ventral patch 6cm STRESS TEST 04/14/2017 [facility] 02/04/2018 ALLERGIES Amantadine, Capoten [Captopril], Cephalexin, Erythromycin, Hctz [Thiazides], Ivp Dye [Iodine], and Norvasc [Amlodipine Besylate] MEDICATIONS >Zippered Compression Knee High 30-40 mm custom CUSTOM MEASURE FOR KNEE HIGH ANGELO COMPRESSION STOCKINGS, 30-40 MM, WITH ZIPPERS PLEASE. IF UNABLE, PLEASE REFER TO BALA AT [facility]. DX: EDEMA alendronate (FOSAMAX) 70 mg tablet Take 1 tablet by mouth one time a week. In AM with cup of water on empty stomach. Nothing else by mouth and stay upright for 30 min. atorvastatin (LIPITOR) 20 mg tablet Take 1 tablet by mouth every 48 hours. brimonidine (ALPHAGAN P) 0.15 % ophthalmic solution Use 1 Drop in the right eye twice daily. brimonidine-timolol (COMBIGAN) 0.2-0.5 % ophthalmic solution Use in both eyes. calcium carbonate(CALTRATE 600 600 MG (1,500 MG) TAB) Take one(1) tablet twice daily. carvedilol (COREG) 3.125 mg tablet T (more content not included)... [facility] 04-09-2023 Instructions Jesusita Drake APRN.CAB STARTER - 04/09/2023 12:49 PM EDT Please take over the counter Vit d 3 2000 IU daily and get 9595-3646 mg per day calcium. Calcium is best absorbed from your diet. Green vegetables and low fat dairy are good dietary sources of calcium. Walking, weight bearing exercise, resistance training , limiting alcohol and not smoking are also good ways to help maintain your bone mass. We will repeat the bone density in two years. If you add a calcium supplement you will not absorb more than 600 mg at a time so split the dosing . Yogurt, plain, low fat, 8 ounces 415 mg per serving [place] juice, calcium-fortified, 6 ounces 375 mg per serving Yogurt, fruit, low fat, 8 ounces 338-384 mg per serving Mozzarella, part skim, 1.5 ounces 333 mg per serving Sardines, canned in oil, with bones, 3 ounces 325 mg per serving Cheddar cheese, 1.5 ounces 307 mg per serving Milk, nonfat, 8 ounces 299 mg per serving Milk, reduced-fat (2% milk fat), 8 ounces 293 mg per serving Milk, buttermilk, 8 ounces 282-350 mg per serving Milk, whole (3.25% milk fat), 8 ounces 276 mg per serving Tofu, firm, made with calcium sulfate, cup 253 mg per serving [place], pink, canned, solids with bone, 3 ounces 181 mg per serving Cottage cheese, 1% milk fat, 1 cup 138 mg per serving Instant breakfast drink, various flavors and brands, powder prepared with water, 8 ounces 105-250 mg per serving Frozen yogurt, vanilla, soft serve, cup 103 mg per serving Qyrrv-pi-gdj cereal, calcium-fortified, 1 cup 100-1,000 mg per serving Turnip greens, fresh, boiled, cup 99 mg per serving Kale, fresh, cooked, 1 cup 94 mg per serving Kale, raw, chopped, 1 cup 90 mg per serving Tofu, soft, made with calcium sulfate, cup 138 mg per serving Ice cream, vanilla, cup 84 mg per serving Soy beverage, calcium-fortified, 8 ounces 80-500 mg per serving Cymro cabbage, bok [place], raw, shredded, 1 cup 74 mg per serving Bread, white, 1 slice 73 mg per serving Pudding, chocolate, ready to eat, refrigerated, 4 ounces 55 mg per serving Tortilla, corn, ffmqf-fg-furq/porter, one 6 diameter 46 mg per serving Tortilla, flour, vptdg-jq-tgxs/porter, one 6 diameter 32 mg per serving Sour cream, reduced fat, cultured, 2 tablespoons 31 mg per serving Bread, whole-wheat, 1 slice 30 mg per serving Broccoli, raw, cup 21 mg per serving Cheese, cream, regular, 1 tablespoon 14 mg per serving documented in this encounter [facility] 04-09-2023 History of Presen t illness Narrative CC: Patient presents with: Recheck: 3 month follow up Immunizations: Flu vaccination HPI Reinier Stoner is a 87 year old female who presents today for routine follow up. HTN and HLD: Ms. Stoner indicates that she is feeling well and denies any symptoms referable to elevated blood pressure. Specifically denies headache, chest pain, palpitations, dyspnea, and peripheral edema. Patient denies any side effects of her medication(s) and is compliant with their regimen. She does check BP's away from this office with average BP's in the 110s-130s/50s-60s range. Reinier denies regular aerobic exercise but does have a cycle machine she uses sometimes. She watches her diet for sodium, low fat and low cholesterol most of the time. Last 3 Encounter BP Readings: Date: BP: 04/09/2023 189/72[BP Sasha[ 01/27/2023 165/77 01/07/2023 140/70 Osteoporosis: Has been on fosamax since 2013. Only fractures were left wrist and right foot which were years ago. Was last checked in 2019 with osteopenia and now with osteoporosis, signifincant decrease in bone loss even with being on the fosamax. Has had intermittent ache and tiredness to mid back that occurs when she tries to clean her house. Denies injury, fever, chills, falls, weakness, numbness, abdominal pain, loss of bowel/bladder control. Hypothyroidism: Takes medication as prescribed denies abnormal change in weight or energy REVIEW OF SYSTEMS General: no fevers, no chills, no night sweats, no recurrent infections, no change in appetite, no change in energy, and no significant changes in weight Respiratory: no cough, no wheezing, no shortness of breath, no hemoptysis Cardiovascular: no chest pain, no chest pressure, no palpitations, and no swelling GI: No nausea, vomiting, or diarrhea Endocrine: no fatigue, no polyuria, no polyphagia, and no polydipsia Neurologic: No headache, weakness, numbness, tingling, dizziness, memory loss, syncope. PAST MEDICAL HISTORY Diagnosis Date Acquired keratoderma Lichen sclerosis Anemia Anticoagulant long-term use indication: stroke prevention atrial fibrillation At risk for bleeding associated with anticoagulants HAS-BLED score = 2 (age, bleeding) At risk for stroke [id number] = 4 (HTN, age2, female gender) Benign neoplasm of colon Bilateral lower extremity edema BMI 29.0-29.9,adult 09/25/2015 Circumscribed scleroderma CKD (chronic kidney disease) Disorder of bone and cartilage, unspecified DICKERSON (dyspnea on exertion) Elevated liver enzymes Essential hypertension Gastrointestinal hemorrhage, unspecified Glaucoma Hemorrhage of rectum and anus Hernia History of GI bleed HLD (hyperlipidemia) Lymphedema of both lower extremities Near syncope Obesity, unspecified Osteoporosis, unspecified Other and unspecified hyperlipidemia PAF (paroxysmal atrial fibrillation) (HCC) Palpitations Permanent atrial fibrillation (HCC) Personal history of colonic polyps 09/20/2014 Pneumonia Stage 3b chronic kidney disease (CKD) (HCC) Sweat, sweating, excessive Umbilical hernia 12/22/2012 Unspecified essential hypertension PAST SURGICAL HISTORY Procedure Laterality Date COLONOSCOPY FLX DX W/COLLJ SPEC WHEN PFRMD 01/09/2003 Colonoscopy w/ polypectomy COLONOSCOPY FLX DX W/COLLJ SPEC WHEN PFRMD 10/10/2014 Colonoscopy COLSC FLX W/RMVL OF TUMOR POLYP LESION SNARE TQ 10/24/2008 HYSTEROSCOPY, DIAGNOSTIC (SEPARATE 08/21/1998 Hysteroscopy LEFT HEART CATH,PERCUTANEOUS Left 02/05/2018 LIG/TRNSXJ FLP TUBE ABDL/VAG APPR UNI/BI 1976 Tubal ligation PAST SURGICAL HISTORY OF 09/2000 CARDIAC CATH. PAST SURGICAL HISTORY OF 05/2012, 2018 Glaucoma - May. right eye Jun. left eye - [facility] . Dr Gao REPAIR FIRST ABDOMINAL WALL HERNIA 12/14/2012 2cm defect - Parietex Composite ventral patch 6cm STRESS TEST 04/14/2017 [facility] 02/04/2018 ALLERGIES Amantadine, Capoten [Captopril], Cephalexin, Erythromycin, Hctz [Thiazides], Ivp Dye [Iodine], and Norvasc [Amlodipine Besylate] MEDICATIONS >Zippered Compression Knee High 30-40 mm custom CUSTOM MEASURE FOR KNEE HIGH ANGELO COMPRESSION STOCKINGS, 30-40 MM, WITH ZIPPERS PLEASE. IF UNABLE, PLEASE REFER TO BALA AT [facility]. DX: EDEMA alendronate (FOSAMAX) 70 mg tablet Take 1 tablet by mouth one time a week. In AM with cup of water on empty stomach. Nothing else by mouth and stay upright for 30 min. atorvastatin (LIPITOR) 20 mg tablet Take 1 tablet by mouth every 48 hours. brimonidine (ALPHAGAN P) 0.15 % ophthalmic solution Use 1 Drop in the right eye twice daily. brimonidine-timolol (COMBIGAN) 0.2-0.5 % ophthalmic solution Use in both eyes. calcium carbonate(CALTRATE 600 600 MG (1,500 MG) TAB) Take one(1) tablet twice daily. carvedilol (COREG) 3.125 mg tablet Take 1 tablet by mouth twice daily. Cholecalciferol, Vitamin D3, 2,000 unit ORAL Cap Take one(1) tablet two(2) times daily. clobetasol (TEMOVATE) 0.05 % ointment Apply 1 application to affected area 3 times a WEEK. TO AFFECTED AREA. clobetasol (TEMOVATE) 0.05 % ointment Apply 1 application to affected area twice daily. TO AFFECTED AREA. furosemide (LASIX) 20 mg tablet Take 1 tablet by mouth every other day. hydrALAZINE (APRESOLINE) 10 mg tablet Take 1 tablet by mouth twice daily. latanoprost (XALATAN) 0.005 % ophthalmic solution 1 Drop daily at bedtime. levothyroxine (LEVOXYL) 25 mcg tablet Take 1 tablet by mouth once daily. Take on empty stomach. For Thyroid losartan (COZAAR) 50 mg tablet take 1 tablet by mouth once daily (Patient taking differently: Take 50 mg by mouth twice daily.) omeprazole (PRILOSEC) 40 mg capsule Take 1 capsule by mouth daily before breakfast. 1/2 hr before meal. potassium chloride (K-TAB) 10 mEq tablet Take 1 tablet by mouth twice daily. Spirometers and Accessories magdalena Use 3 times a day, each time blow into it for 10 reps timolol maleate (TIMOPTIC) 0.5 % ophthalmic solution Use 1 Drop in the right eye twice daily. TRAVATAN Z 0.004 % Drop daily at bedtime. XARELTO 15 mg tablet Take 15 mg by mouth daily with dinner. FAMILY HISTORY Problem Relation Age of Onset Heart Mother Hypertension Mother Ischemic Heart Disease Mother Hypertension Father Ischemic Heart Disease Father Heart Sister By-pass, Triple Ischemic Heart Disease Sister Heart Brother Stent Ischemic Heart Disease Brother Glaucoma Brother other (Renal Stones) Daughter Heart Maternal Aunt Social History Tobacco Use Smoking status: Former Years: 5 Types: Cigarettes Quit date: 07/06/1976 Years since quittin.7 Smokeless tobacco: Never Tobacco comments: Quit 1969' 4-5 cig per day Vaping Use Vaping Use: Never used Substance Use Topics Alcohol use: No Drug use: No PHYSICAL EXAM BP 189/72 Pulse 60 Resp 16 Wt 60.8 kg (134 lb) SpO2 99% BMI 24.51 kg/m General Appearance: well appearing, in no acute distress, alert Skin: Skin color, texture, turgor normal for age; Eyes: conjunctiva pink and moist, no icterus, sclera white, non-injected Neck: Thyroid normal size and symmetric without palpable nodules, Neck supple, No adenopathy Lymph nodes: No cervical lymphadenopathy and No supraclavicular lymphadenopathy Back: No pain to palpation, Full and painless ROM including flexion, extension, lateral side bending and rotation, Reflexes 2+ and symmetric Lungs: Lungs clear to auscultation. No wheezing, rhonchi, rales. Heart: RRR without murmur, gallop, or rubs. No ectopy Extremities: No deformities, edema, skin discoloration, clubbing or cyanosis. Good capillary refill. Neurological: Gait normal. Reflexes normal and symmetric. Sensation intact. Health maintenance reviewed with patient: Advance Directive Discussion Never done Influenza Vaccine(1) due on 02/27/2023 Covid-19 Vaccine( - 2022- season) due on 02/27/2023 Shingrix Vaccine(1 of 2) due on 09/11/2023 DTaP,Tdap,Td Vaccine(3 - Td or Tdap) due on 06/07/2023 Diabetes Screening due on 06/03/2025 Bone Density Screening Completed Depression Assessment Completed Pneumococcal Vaccine: 65+ Completed DATA REVIEWED: No new labs ASSESSMENT/PLAN: 1. Hypertensive kidney disease with stage 3b chronic kidney disease (HCC) - ICD9: 403.90, 585.3, ICD10: I12.9, N18.32 (primary diagnosis) - Uncontrolled in visit, patient readings at home much more controlled. Patient to monitor BP at home and return next week with home BP machine to validate readings. Call if BP at home is consistently greater than 140/80 - Continue current medications - Recommend home blood pressure monitoring, to bring results to next visit - Encouraged sodium restriction, DASH or Mediterranean diet - Recommend regular aerobic exercise - eGFR: 32 Worsening - continue with recommendations by nephrology - Counseled on avoiding NSAIDs, adequate hydration 2. Mixed hyperlipidemia - ICD9: 272.2, ICD10: E78.2 - Controlled - Continue current medications - Counseled on healthy diet and regular exercise - Discussed need for and benefit of weight loss. BMI 24.51 kg/(m^2) - ATORVASTATIN 20 MG TABLET 3. Osteoporosis without current pathological fracture, unspecified osteoporosis type - ICD9: 733.00, ICD10: M81.0 - Reviewed the need for Calcium and Vitamin D supplements and weight bearing exercise as tolerated - patient to follow up with endocrinology as previously ordered. Fosamax ineffective and has been on for over 5 years. - VITAMIN D 25 HYDROXY - XR THORACIC GENERAL 3V AP/LAT/SWIMMERS 4. Mid back pain - ICD9: 724.5, ICD10: M54.9 - probable musculoskeletal but with history of osteoporosis will evaluate for compression fracture - XR THORACIC GENERAL 3V AP/LAT/SWIMMERS 5. Hypothyroidism, unspecified type - ICD9: 244.9, ICD10: E03.9 - asymptomatic - LEVOTHYROXINE 25 MCG TABLET - TSH BLD 6. Elevated hemoglobin A1c - ICD9: 790.29, ICD10: R73.09 - HGB A1C 7. Need for influenza vaccination - ICD9: V04.81, ICD10: Z23 - INFLUENZA VACCINE, PRSV FREE, AGE 65+ YR, HIGH DOSE, QUADRIVALENT (FLUZONE HIGH-DOSE) Prescription instructions reviewed with patient as applicable. Potential red flag symptoms discussed with the patient. Reviewed appropriate action plan to take if red flag symptoms occur. Patient agreeable to treatment plan. Jesusita Drake APRN.CNP documented in this encounter [facility] 03-23-2023 Miscellaneous Notes Patient has been identified by name and date of : No Patient phones for refill(s): Requested Prescriptions Pending Prescriptions Disp Refills omeprazole (PRILOSEC) 40 mg capsule 90 capsule 3 Sig: Take 1 capsule by mouth daily before breakfast. 1/2 hr before meal. Date of last office visit in primary care: 01/07/23 Last 2 Encounter Wt Readings: Date: Wt: 01/27/2023 59.4 kg (131 lb) 01/07/2023 60.3 kg (133 lb) Previous labs/tests for medication: Not applicable Please advise. Thank you. Kia Dixon Patient has been identified by name and date of : Yes Last office visit in this department: 02/09/2018 RX INSTRUCTIONS: Patient aware RX will be sent to pharmacy. No need to notify patient. Patient phones requesting refills as follows: Requested Prescriptions Pending Prescriptions Disp Refills omeprazole (PRILOSEC) 40 mg capsule 90 capsule 3 Sig: Take 1 capsule by mouth daily before breakfast. 1/2 hr before meal. Please review and advise. Allyson Gaxiola documented in this encounter [facility] 02-20-2023 Miscellaneous Notes Patient has been identified by name and date of : No Patient phones for refill(s): Requested Prescriptions Pending Prescriptions Disp Refills hydrALAZINE (APRESOLINE) 10 mg tablet 180 tablet 3 Sig: Take 1 tablet by mouth twice daily. Date of last office visit in primary care: 01/07/23 Last 2 Encounter Wt Readings: Date: Wt: 01/27/2023 59.4 kg (131 lb) 01/07/2023 60.3 kg (133 lb) Previous labs/tests for medication: Blood Pressure: BUN (mg/dL) Date Value 06/03/2022 15 06/04/2021 19 Sodium (mmol/L) Date Value 06/03/2022 142 06/04/2021 142 Last 1 Encounter BP Readings: Date: BP: 01/27/2023 165/77 Please advise. Thank you. Kia Jamil LPN Pharmacy verified in Epic Patient has been identified by name and date of : Yes Patient aware RX will be sent to pharmacy. No need to notify patient. Patient phones for refill(s): Requested Prescriptions Pending Prescriptions Disp Refills hydrALAZINE (APRESOLINE) 10 mg tablet 180 tablet 3 Sig: Take 1 tablet by mouth twice daily. Date of last office visit : 01/07/2023 Date of next office visit : 04/09/2023 Last 2 Encounter Wt Readings: Date: Wt: 01/27/2023 59.4 kg (131 lb) 01/07/2023 60.3 kg (133 lb) Not applicable Please advise. Margie Morgan Pss documented in this encounter [facility] 02-04-2023 Miscellaneous Notes Noted Jesusita Drake APRN.CNP Pt calling and requesting Endocrinology referral be faxed to Dr. Terry Basilio's office. Faxed as requested. Jess Fernandez RN Pt called and is notified of providers message and instructions. Pt voices understanding, but states her daughter comes with her to all her appointment and she will be out of town until March. She states she will wait until her 04/09/23 appointment with Jesusita Drake PAINT STOCKMAN and discuss it then. Cheryl George RN There is not much improvement from the fosamax. I am consulting her to endocrinology for other treatment options. Thank you Jesusita Drake APRN.CNP Patient calls to request results of bone density testing from 01/12/2023. Patient taking fosamax weekly as directed. Patient reports she is not taking OTC calcium. Noted on list order for Caltrate 600 mg twice daily. Verified twice that she is not taking. Brianne Toribio RN documented in this encounter [facility] 01-27-2023 Note HNO ID: [id number] Author: Maura Giles MD Service: ? Author Type: Physician Type: Progress Notes Filed: 02/02/2023 7:41 PM Note Text: PRIMARY CARE PHYSICIAN: Татьяна Barnard [address] [place] [address] REFERRING PHYSICIAN: Fredis Marie MD ([facility]) [address] [facility] [address] Patient Care Team: Татьяна Barnard MD as PCP - General (Internal Medicine) Fredis Marie as Specialty Furnace Charger (Cardiology) Yuriy Collins DO as Specialty Furnace Charger (Gastroenterology) CHIEF COMPLAINT: Evaluation for stroke prevention HISTORY OF PRESENT ILLNESS: Ms. Stoner is a 87 year old female who presents today for evaluation, referred by [facility], accompanied today by her daughter. Ms. Stoner has history of atrial fibrillation that was diagnosed in late 2021. She was treated with oral anticoagulation therapy with Eliquis, and ventricular rate control with metoprolol. She did have an episode of persistent atrial fibrillation in late March or April 2022, underwent electrical cardioversion at that time. She has developed anemia on two occasions, was found to have occult blood from GI tract. She states she underwent colonoscopy and EGD by Dr. Collins, had electrocautery performed that resolved the bleeding. She states she again required electrocautery treatment in October 2022. She is referred for consideration of an alternative to oral anticoagulation therapy, such as left atrial appendage closure device. I have confirmed and edited as necessary, the PFSH and ROS obtained by others. PAST MEDICAL HISTORY Diagnosis Date Acquired keratoderma Lichen sclerosis Anemia Anticoagulant long-term use At risk for bleeding associated with anticoagulants At risk for stroke Benign neoplasm of colon Bilateral lower extremity edema BMI 29.0-29.9,adult 09/25/2015 Circumscribed scleroderma CKD (chronic kidney disease) Disorder of bone and cartilage, unspecified DICKERSON (dyspnea on exertion) Elevated liver enzymes Essential hypertension Gastrointestinal hemorrhage, unspecified Glaucoma Hemorrhage of rectum and anus Hernia History of GI bleed HLD (hyperlipidemia) Lymphedema of both lower extremities Near syncope Obesity, unspecified Osteoporosis, unspecified Other and unspecified hyperlipidemia PAF (paroxysmal atrial fibrillation) (HCC) Palpitations Permanent atrial fibrillation (HCC) Personal history of colonic polyps 09/20/2014 Pneumonia Stage 3b chronic kidney disease (CKD) (HCC) Sweat, sweating, excessive Umbilical hernia 12/22/2012 Unspecified essential hypertension PAST SURGICAL HISTORY Procedure Laterality Date COLONOSCOPY FLX DX W/COLLJ SPEC WHEN PFRMD 01/09/2003 Colonoscopy w/ polypectomy COLONOSCOPY FLX DX W/COLLJ SPEC WHEN PFRMD 10/10/2014 Colonoscopy COLSC FLX W/RMVL OF TUMOR POLYP LESION SNARE TQ 10/24/2008 HYSTEROSCOPY, DIAGNOSTIC (SEPARATE 08/21/1998 Hysteroscopy LEFT HEART CATH,PERCUTANEOUS Left 02/05/2018 LIG/TRNSXJ FLP TUBE ABDL/VAG APPR UNI/BI 1976 Tubal ligation PAST SURGICAL HISTORY OF 09/2000 CARDIAC CATH. PAST SURGICAL HISTORY OF 05/2012, 2018 Glaucoma - May. right eye Jun. left eye - [facility] . Dr Gao REPAIR FIRST ABDOMINAL WALL HERNIA 12/14/2012 2cm defect - Parietex Composite ventral patch 6cm STRESS TEST 04/14/2017 PAWAN 02/04/2018 SOCIAL HISTORY Social History Tobacco Use Smoking status: Former Years: 5.00 Types: Cigarettes Quit date: 07/06/1976 Years since quittin.6 Smokeless tobacco: Never Tobacco comments: Quit 1969's 4-5 cig per day Vaping Use Vaping Use: Never used Substance Use Topics Alcohol use: No Drug use: No FAMILY HISTORY Problem Relation Age of Onset Heart Mother Hypertension Mother Ischemic Heart Disease Mother Hypertension Father Ischemic Heart Disease Father Heart Sister By-pass, Triple Ischemic Heart Disease Sister Heart Brother Stent Ischemic Heart Disease Brother Glaucoma Brother other (Renal Stones) Daughter Heart Maternal Aunt ALLERGIES: ALLERGIES Allergen Reactions Amantadine Rash Capoten [Captopril] Rash Cephalexin Rash Erythromycin Rash Hctz [Thiazides] Other: See Comments leg cramps Ivp Dye [Iodine] Rash Norvasc [Amlodipine* Swelling MEDICATIONS: alendronate (FOSAMAX) 70 mg tablet Take 1 tablet by mouth one time a week. In AM with cup of water on empty stomach. Nothing else by mouth and stay upright for 30 min. potassium chloride (K-TAB) 10 mEq tablet Take 1 tablet by mouth twice daily. furosemide (LASIX) 20 mg tablet Take 1 tablet by mouth every other day. hydrALAZINE (APRESOLINE) 10 mg tablet Take 10 mg by mouth twice daily. losartan (COZAAR) 50 mg tablet take 1 tablet by mouth once daily (Patient taking differently: Take 50 mg by mouth twice daily.) carvedilol (COREG) 3.125 mg tablet Take 1 tablet by mouth twice da (more content not included)... [facility] 01-27-2023 History of Presen t illness Narrative PRIMARY CARE PHYSICIAN: Татьяна Barnard [address] [place] [address] REFERRING PHYSICIAN: Fredis Marie MD ([facility]) [address] [facility] [address] [facility] [address] Patient Care Team: Татьяна Barnard MD as PCP - General (Internal Medicine) Cynthia, Fredis Salazar as Specialty Furnace Charger (Cardiology) Yuriy Collins DO as Specialty Furnace Charger (Gastroenterology) CHIEF COMPLAINT: Evaluation for stroke prevention HISTORY OF PRESENT ILLNESS: Ms. Stoner is a 87 year old female who presents today for evaluation, referred by [facility], accompanied today by her daughter. Ms. Stoner has history of atrial fibrillation that was diagnosed in late 2021. She was treated with oral anticoagulation therapy with Eliquis, and ventricular rate control with metoprolol. She did have an episode of persistent atrial fibrillation in late March or April 2022, underwent electrical cardioversion at that time. She has developed anemia on two occasions, was found to have occult blood from GI tract. She states she underwent colonoscopy and EGD by Dr. Collins, had electrocautery performed that resolved the bleeding. She states she again required electrocautery treatment in October 2022. She is referred for consideration of an alternative to oral anticoagulation therapy, such as left atrial appendage closure device. I have confirmed and edited as necessary, the PFSH and ROS obtained by others. PAST MEDICAL HISTORY Diagnosis Date Acquired keratoderma Lichen sclerosis Anemia Anticoagulant long-term use At risk for bleeding associated with anticoagulants At risk for stroke Benign neoplasm of colon Bilateral lower extremity edema BMI 29.0-29.9,adult 09/25/2015 Circumscribed scleroderma CKD (chronic kidney disease) Disorder of bone and cartilage, unspecified DICKERSON (dyspnea on exertion) Elevated liver enzymes Essential hypertension Gastrointestinal hemorrhage, unspecified Glaucoma Hemorrhage of rectum and anus Hernia History of GI bleed HLD (hyperlipidemia) Lymphedema of both lower extremities Near syncope Obesity, unspecified Osteoporosis, unspecified Other and unspecified hyperlipidemia PAF (paroxysmal atrial fibrillation) (HCC) Palpitations Permanent atrial fibrillation (HCC) Personal history of colonic polyps 09/20/2014 Pneumonia Stage 3b chronic kidney disease (CKD) (HCC) Sweat, sweating, excessive Umbilical hernia 12/22/2012 Unspecified essential hypertension PAST SURGICAL HISTORY Procedure Laterality Date COLONOSCOPY FLX DX W/COLLJ SPEC WHEN PFRMD 01/09/2003 Colonoscopy w/ polypectomy COLONOSCOPY FLX DX W/COLLJ SPEC WHEN PFRMD 10/10/2014 Colonoscopy COLSC FLX W/RMVL OF TUMOR POLYP LESION SNARE TQ 10/24/2008 HYSTEROSCOPY, DIAGNOSTIC (SEPARATE 08/21/1998 Hysteroscopy LEFT HEART CATH,PERCUTANEOUS Left 02/05/2018 LIG/TRNSXJ FLP TUBE ABDL/VAG APPR UNI/BI 1976 Tubal ligation PAST SURGICAL HISTORY OF 09/2000 CARDIAC CATH. PAST SURGICAL HISTORY OF 05/2012, 2018 Glaucoma - May. right eye left eye - [facility] . Dr Gao REPAIR FIRST ABDOMINAL WALL HERNIA 12/14/2012 2cm defect - Parietex Composite ventral patch 6cm STRESS TEST 04/14/2017 [facility] 02/04/2018 SOCIAL HISTORY Social History Tobacco Use Smoking status: Former Years: 5.00 Types: Cigarettes Quit date: 07/06/1976 Years since quittin.6 Smokeless tobacco: Never Tobacco comments: Quit 1970's 4-5 cig per day Vaping Use Vaping Use: Never used Substance Use Topics Alcohol use: No Drug use: No FAMILY HISTORY Problem Relation Age of Onset Heart Mother Hypertension Mother Ischemic Heart Disease Mother Hypertension Father Ischemic Heart Disease Father Heart Sister By-pass, Triple Ischemic Heart Disease Sister Heart Brother Stent Ischemic Heart Disease Brother Glaucoma Brother other (Renal Stones) Daughter Heart Maternal Aunt ALLERGIES: ALLERGIES Allergen Reactions Amantadine Rash Capoten [Captopril] Rash Cephalexin Rash Erythromycin Rash Hctz [Thiazides] Other: See Comments leg cramps Ivp Dye [Iodine] Rash Norvasc [Amlodipine* Swelling MEDICATIONS: alendronate (FOSAMAX) 70 mg tablet Take 1 tablet by mouth one time a week. In AM with cup of water on empty stomach. Nothing else by mouth and stay upright for 30 min. potassium chloride (K-TAB) 10 mEq tablet Take 1 tablet by mouth twice daily. furosemide (LASIX) 20 mg tablet Take 1 tablet by mouth every other day. hydrALAZINE (APRESOLINE) 10 mg tablet Take 10 mg by mouth twice daily. losartan (COZAAR) 50 mg tablet take 1 tablet by mouth once daily (Patient taking differently: Take 50 mg by mouth twice daily.) carvedilol (COREG) 3.125 mg tablet Take 1 tablet by mouth twice daily. Spirometers and Accessories magdalena Use 3 times a day, each time blow into it for 10 reps levothyroxine (LEVOXYL) 25 mcg tablet Take 1 tablet by mouth once daily. Take on empty stomach. For Thyroid atorvastatin (LIPITOR) 20 mg tablet Take 1 tablet by mouth every 48 hours. XARELTO 15 mg tablet Take 15 mg by mouth daily with dinner. omeprazole (PRILOSEC) 40 mg capsule Take 1 capsule by mouth daily before breakfast. 1/2 hr before meal. brimonidine (ALPHAGAN P) 0.15 % ophthalmic solution Use 1 Drop in the right eye twice daily. timolol maleate (TIMOPTIC) 0.5 % ophthalmic solution Use 1 Drop in the right eye twice daily. clobetasol (TEMOVATE) 0.05 % ointment Apply 1 application to affected area twice daily. TO AFFECTED AREA. >Zippered Compression Knee High 30-40 mm custom CUSTOM MEASURE FOR KNEE HIGH ANGELO COMPRESSION STOCKINGS, 30-40 MM, WITH ZIPPERS PLEASE. IF UNABLE, PLEASE REFER TO BALA AT [facility]. DX: EDEMA latanoprost (XALATAN) 0.005 % ophthalmic solution 1 Drop daily at bedtime. clobetasol (TEMOVATE) 0.05 % ointment Apply 1 application to affected area 3 times a WEEK. TO AFFECTED AREA. brimonidine-timolol (COMBIGAN) 0.2-0.5 % ophthalmic solution Use in both eyes. TRAVATAN Z 0.004 % Drop daily at bedtime. Cholecalciferol, Vitamin D3, 2,000 unit ORAL Cap Take one(1) tablet two(2) times daily. calcium carbonate(CALTRATE 600 600 MG (1,500 MG) TAB) Take one(1) tablet twice daily. REVIEW OF SYSTEMS: Review of Systems Constitutional: Negative for chills and fever. Respiratory: Negative for cough, hemoptysis, sputum production, shortness of breath and wheezing. Cardiovascular: Negative for chest pain, palpitations, orthopnea, claudication, leg swelling and PND. Gastrointestinal: Positive for blood in stool (occult blood). Negative for abdominal pain, melena, nausea and vomiting. Genitourinary: Negative for hematuria. Musculoskeletal: Negative for falls. Skin: Negative for rash. Neurological: Negative for dizziness, focal weakness, seizures and loss of consciousness. PHYSICAL EXAMINATION: BP 165/77 Pulse 74 Resp 18 Ht 5' 2 (1.58m) Wt 131 lb (59.4kg) SpO2 99[room air]% BMI 23.95 kg/(m^2). Physical Exam Vitals reviewed. Constitutional: General: She is not in acute distress. Appearance: Normal appearance. HENT: Head: Normocephalic and atraumatic. Cardiovascular: Rate and Rhythm: Normal rate and regular rhythm. Occasional Extrasystoles are present. Heart sounds: Normal heart sounds, S1 normal and S2 normal. No murmur heard. No friction rub. Pulmonary: Effort: Pulmonary effort is normal. No respiratory distress. Breath sounds: Normal breath sounds. No wheezing, rhonchi or rales. Musculoskeletal: Cervical back: Neck supple. Right lower leg: No edema. Left lower leg: No edema. Skin: General: Skin is warm and dry. Neurological: General: No focal deficit present. Mental Status: She is alert and oriented to person, place, and time. Psychiatric: Mood and Affect: Mood normal. Behavior: Behavior normal. Thought Content: Thought content normal. CARDIOVASCULAR MEDICINE TESTING: Electrocardiogram: Sinus bradycardia 54 bpm; PACs; normal conduction intervals (DC 192 ms, QRS 88 ms); QTc 403 ms I have personally reviewed the Electrocardiogram. ASSESSMENT/PLAN: 1. Permanent atrial fibrillation (HCC) - ICD9: 427.31, ICD10: I48.21 (primary diagnosis) 2. At risk for stroke - ICD9: V15.89, ICD10: Z91.89 3. Anticoagulant long-term use - ICD9: V58.61, ICD10: Z79.01 4. At risk for bleeding associated with anticoagulants - ICD9: V15.89, ICD10: Z91.89 5. History of GI bleed - ICD9: V12.79, ICD10: Z87.19 CHADS2-Vasc Score Breakdown 4 Total Score 1 Female 2 Age >= 75 years old 1 History of hypertension IMPRESSION: Ms. Stoner has permanent atrial fibrillation that is not associated with excessively bothersome symptoms, she is being appropriately treated with rate control and stroke prevention strategy. 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 She has undergone electrocautery procedures on at least two occasions for the GI bleeding source, according to the patient. Ms. Stoner is referred to me for consideration of an alternative to oral anticoagulation therapy, left atrial appendage closure device implantation. I had a detailed discussion with Ms. Stoner and her daughter regarding the Watchman left atrial appendage closure device, the procedure and the risk benefits alternatives. I do think that in spite of her advanced age she is not at high risk for serious complications from such a procedure. So I feel that she is an appropriate candidate from a procedural standpoint. She seems to have appropriate rationale for consideration of an alternative to oral anticoagulation therapy, given the recurrent anemia from GI bleeding. I do not have direct information as to whether she had more than 2 g/dL drop in hemoglobin (so HAS-BLED score is either a 1 for age, or 2 if one counts major GI bleeding defined as > 2 g/dL drop in Hgb or need for blood transfusion). I did inform Ms. Stoner that to proceed with Watchman device implant the CMS/Medicare requires shared decision making documentation from a non-implanting physician -- either PCP or general phone technician or GI specialist that outlines the rationale for oral anticoagulation therapy being considered to have unfavorable risk:benefit and that shared decision making was completed to decide to pursue left atrial appendage closure. From my standpoint, the determination is whether or not she has favorable risk:benefit from a procedural standpoint, and I do think this is favorable. I would have the caveat that if she is considered to have been adequately treated for the GI bleeding and the risk of future bleeding is not high --- in other words if her physicians, and in particular I would like the input of her GI specialist Dr. Collins, feel that the GI bleeding risk has been sufficiently mitigated with the electrocautery treatments, then perhaps the risk:benefit of oral anticoagulation therapy has become favorable. I would like the input from GI, PCP and general phone technician in this regard but as I stated particularly the GI specialist. At her advanced age, if it is determined that she can be treated with oral anticoagulation therapy with reasonable safety then this is preferred to an invasive procedure. I had a detailed discussion with Ms. Stoner and her daughter regarding my evaluation and recommendations. After our discussion, Ms. Stoner and her daughter expressed understanding and I answered all questions to their apparent satisfaction. I provided them with educational literature and also directed them to the [employer] website for additional educational information. They will give this option consideration, and if they determined they would like to pursue Watchman implant AND her physicians including Dr. Collins consider the risk:benefit of parts counterman oral anticoagulation therapy to be unfavorable, then I would only need the shared decision making statement from one of her physicians. MODIFIED KINJAL SCORE: 2 = Slight disability: unable to carry out all previous activities but able to look after own affairs w/o assistance. Maura Giles MD 01/27/2023 Medical Decision Making: Problems: Moderate: New problem with uncertain prognosis Data: Unique source(s) for external note(s) reviewed: 1 Unique test result(s) reviewed: 3+ Unique test(s) ordered: 1 Risk: Moderate: Moderate risk from testing/treatment, Decision on minor surgery w/ risk factors and Drug management Medical Decision Making Level: 4 - Moderate documented in this encounter [facility] 01-27-2023 Nurse Note Patient denies any cardiac issues or symptoms. documented in this encounter [facility] 01-12-2023 Note HNO ID: [id number] Author: RT Bernadette(R) Service: ? Author Type: Technologist Type: Progress Notes Filed: 01/12/2023 2:07 PM Note Text: Radiology Service Progress Note PATIENT NAME: Reinier Stoner DATE OF SERVICE: January 12, 2023 TIME: 1:56 PM PATIENT IDENTITY VERIFICATION COMPLETED USING TWO (2) IDENTIFIERS: Name and Date of confirmed by patient verbally. FALL SCREENING: Has the patient had 2 falls in the last year or 1 fall with injury or currently using an Ambulatory Assistive Device (Walker, Cane, Wheelchair, Crutches, etc.)? No PATIENT GENDER DATA: Female. status: : No status: NO. PATIENT RELEVANT IMPLANT DATA REVIEWED: Not Applicable RADIOLOGY DEPARTMENT: Bone Density PERIPHERAL IV DATA: Not applicable SIGNED BY: RT Bernadette(R) January 12, 2023 1:56 PM [facility] 01-12-2023 History of Presen t illness Narrative Radiology Service Progress Note PATIENT NAME: Reinier Stoner DATE OF SERVICE: January 12, 2023 TIME: 1:56 PM PATIENT IDENTITY VERIFICATION COMPLETED USING TWO (2) IDENTIFIERS: Name and Date of confirmed by patient verbally. FALL SCREENING: Has the patient had 2 falls in the last year or 1 fall with injury or currently using an Ambulatory Assistive Device (Walker, Cane, Wheelchair, Crutches, etc.)? No PATIENT GENDER DATA: Female. status: : No status: NO. PATIENT RELEVANT IMPLANT DATA REVIEWED: Not Applicable RADIOLOGY DEPARTMENT: Bone Density PERIPHERAL IV DATA: Not applicable SIGNED BY: RT Bernadette(R) January 12, 2023 1:56 PM documented in this encounter [facility] 01-07-2023 Note HNO ID: [id number] Author: Jesusita Drake APRN.CAB STARTER Service: ? Author Type: Nurse Practitioner Type: Progress Notes Filed: 01/07/2023 2:04 PM Note Text: CC: Patient presents with: Follow Up: elevated blood pressure and refills needed HPI Reiiner Stoner is a 87 year old female who presents today for blood pressure follow up. Was seen 4 weeks ago with elevated blood pressure. Sees cardiology and nephrology for BP control. No med changes were made at appointment. Verified with specialty offices that our med list was accurate. HTN: Ms. Stoner indicates that she is feeling well and denies any symptoms referable to elevated blood pressure. Specifically denies headache, chest pain, palpitations, dyspnea, and peripheral edema. Patient denies any side effects of her medication(s) and is compliant with their regimen. She does check BP's away from this office with average BP's in the 110s-150s/50s-60s range. Will be very fatigued when SBP is in the 110s which only occurred a few times since last being seen. Has an appointment next month with cardiology. Last 3 Encounter BP Readings: Date: BP: 01/07/2023 140/70 12/10/2022 168/72 10/07/2022 146/80 Osteoporosis: On fosamax once a week. Last bone density was in 2019. No recent fractures. Stopped calcium and vit d a long time ago. Walks sometime for weight bearing exercises REVIEW OF SYSTEMS General: no fevers, no chills, no night sweats, no recurrent infections, no change in appetite, no change in energy, and no significant changes in weight Respiratory: no cough, no wheezing, no shortness of breath, no hemoptysis Cardiovascular: no chest pain, no chest pressure, no palpitations, and no swelling Neurologic: No headache, weakness, numbness, tingling, neck stiffness, tremor, vertigo, dizziness, memory loss, syncope. 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, unspecified Gastrointestinal hemorrhage, unspecified Glaucoma Hemorrhage of rectum and anus Obesity, unspecified Osteoporosis, unspecified Other and unspecified hyperlipidemia PAF (paroxysmal atrial fibrillation) (HCC) Personal history of colonic polyps 09/20/2014 Umbilical hernia 12/22/2012 Unspecified essential hypertension PAST SURGICAL HISTORY Procedure Laterality Date COLONOSCOPY FLX DX W/COLLJ SPEC WHEN PFRMD 01/09/2003 Colonoscopy w/ polypectomy COLONOSCOPY FLX DX W/COLLJ SPEC WHEN PFRMD 10/10/2014 Colonoscopy COLSC FLX W/RMVL OF TUMOR POLYP LESION SNARE TQ 10/24/08 HYSTEROSCOPY, DIAGNOSTIC (SEPARATE 08/21/1998 Hysteroscopy LIG/TRNSXJ FLP TUBE ABDL/VAG APPR UNI/BI 1975 Tubal ligation PAST SURGICAL HISTORY OF 09/27 CARDIAC CATH. PAST SURGICAL HISTORY OF 2018 Glaucoma - May. right eye Jun. left eye - [facility] . Dr Gao REPAIR FIRST ABDOMINAL WALL HERNIA 12/14/12 2cm defect - Parietex Composite ventral patch 6cm ALLERGIES Amantadine, Capoten [Captopril], Cephalexin, Erythromycin, Hctz [Thiazides], Ivp Dye [Iodine], and Norvasc [Amlodipine Besylate] MEDICATIONS furosemide (LASIX) 20 mg tablet Take 1 tablet by mouth every other day. potassium chloride (K-TAB) 10 mEq tablet Take 1 tablet by mouth twice daily. hydrALAZINE (APRESOLINE) 10 mg tablet Take 10 mg by mouth twice daily. losartan (COZAAR) 50 mg tablet take 1 tablet by mouth once daily carvedilol (COREG) 3.125 mg tablet Take 1 tablet by mouth twice daily. Spirometers and Accessories magdalena Use 3 times a day, each time blow into it for 10 reps levothyroxine (LEVOXYL) 25 mcg tablet Take 1 tablet by mouth once daily. Take on empty stomach. For Thyroid atorvastatin (LIPITOR) 20 mg tablet Take 1 tablet by mouth every 48 hours. XARELTO 15 mg tablet Take 15 mg by mouth once daily. omeprazole (PRILOSEC) 40 mg capsule Take 1 capsule by mouth daily before breakfast. 1/2 hr before meal. alendronate (FOSAMAX) 70 mg tablet take 1 tablet by mouth every week hydrocortisone 2.5 % ointment Apply 1 application to affected area twice daily. brimonidine (ALPHAGAN P) 0.15 % ophthalmic solution Use 1 Drop in the right eye twice daily. timolol maleate (TIMOPTIC) 0.5 % ophthalmic solution Use 1 Drop in the right eye twice daily. clobetasol (TEMOVATE) 0.05 % ointment Apply 1 application to affected area twice daily. TO AFFECTED AREA. >Zippered Compression Knee High 30-40 mm custom CUSTOM MEASURE FOR KNEE HIGH ANGELO COMPRESSION STOCKINGS, 30-40 MM, WITH ZIPPERS PLEASE. IF UNABLE, PLEASE REFER TO BALA AT [facility]. DX: EDEMA latanoprost (XALATAN) 0.005 % ophthalmic solution 1 Drop daily at bedtime. clobetasol (TEMOVATE) 0.05 % ointment Apply 1 application to affected area 3 times a WEEK. TO AFFECTED AREA. brimonidine-timolol (COMBIGAN) 0.2-0.5 % ophthalmic solution Use in both eyes. TRAVATAN Z 0.004 % Drop daily at (more content not included)... [facility] 01-07-2023 History of Presen t illness Narrative CC: Patient presents with: Follow Up: elevated blood pressure and refills needed HPI Reinier Stoner is a 87 year old female who presents today for blood pressure follow up. Was seen 4 weeks ago with elevated blood pressure. Sees cardiology and nephrology for BP control. No med changes were made at appointment. Verified with specialty offices that our med list was accurate. HTN: Ms. Stoner indicates that she is feeling well and denies any symptoms referable to elevated blood pressure. Specifically denies headache, chest pain, palpitations, dyspnea, and peripheral edema. Patient denies any side effects of her medication(s) and is compliant with their regimen. She does check BP's away from this office with average BP's in the 110s-150s/50s-60s range. Will be very fatigued when SBP is in the 110s which only occurred a few times since last being seen. Has an appointment next month with cardiology. Last 3 Encounter BP Readings: Date: BP: 01/07/2023 140/70 12/10/2022 168/72 10/07/2022 146/80 Osteoporosis: On fosamax once a week. Last bone density was in 2019. No recent fractures. Stopped calcium and vit d a long time ago. Walks sometime for weight bearing exercises REVIEW OF SYSTEMS General: no fevers, no chills, no night sweats, no recurrent infections, no change in appetite, no change in energy, and no significant changes in weight Respiratory: no cough, no wheezing, no shortness of breath, no hemoptysis Cardiovascular: no chest pain, no chest pressure, no palpitations, and no swelling Neurologic: No headache, weakness, numbness, tingling, neck stiffness, tremor, vertigo, dizziness, memory loss, syncope. 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, unspecified Gastrointestinal hemorrhage, unspecified Glaucoma Hemorrhage of rectum and anus Obesity, unspecified Osteoporosis, unspecified Other and unspecified hyperlipidemia PAF (paroxysmal atrial fibrillation) (HCC) Personal history of colonic polyps 09/20/2014 Umbilical hernia 12/22/2012 Unspecified essential hypertension PAST SURGICAL HISTORY Procedure Laterality Date COLONOSCOPY FLX DX W/COLLJ SPEC WHEN PFRMD 01/09/2003 Colonoscopy w/ polypectomy COLONOSCOPY FLX DX W/COLLJ SPEC WHEN PFRMD 10/10/2014 Colonoscopy COLSC FLX W/RMVL OF TUMOR POLYP LESION SNARE TQ 10/24/08 HYSTEROSCOPY, DIAGNOSTIC (SEPARATE 08/21/1998 Hysteroscopy LIG/TRNSXJ FLP TUBE ABDL/VAG APPR UNI/BI 1975 Tubal ligation PAST SURGICAL HISTORY OF 09/27 CARDIAC CATH. PAST SURGICAL HISTORY OF 05/2012, 2018 Glaucoma - May. right eye Jun. left eye - [facility] . Dr Gao REPAIR FIRST ABDOMINAL WALL HERNIA 12/14/12 2cm defect - Parietex Composite ventral patch 6cm ALLERGIES Amantadine, Capoten [Captopril], Cephalexin, Erythromycin, Hctz [Thiazides], Ivp Dye [Iodine], and Norvasc [Amlodipine Besylate] MEDICATIONS furosemide (LASIX) 20 mg tablet Take 1 tablet by mouth every other day. potassium chloride (K-TAB) 10 mEq tablet Take 1 tablet by mouth twice daily. hydrALAZINE (APRESOLINE) 10 mg tablet Take 10 mg by mouth twice daily. losartan (COZAAR) 50 mg tablet take 1 tablet by mouth once daily carvedilol (COREG) 3.125 mg tablet Take 1 tablet by mouth twice daily. Spirometers and Accessories magdalena Use 3 times a day, each time blow into it for 10 reps levothyroxine (LEVOXYL) 25 mcg tablet Take 1 tablet by mouth once daily. Take on empty stomach. For Thyroid atorvastatin (LIPITOR) 20 mg tablet Take 1 tablet by mouth every 48 hours. XARELTO 15 mg tablet Take 15 mg by mouth once daily. omeprazole (PRILOSEC) 40 mg capsule Take 1 capsule by mouth daily before breakfast. 1/2 hr before meal. alendronate (FOSAMAX) 70 mg tablet take 1 tablet by mouth every week hydrocortisone 2.5 % ointment Apply 1 application to affected area twice daily. brimonidine (ALPHAGAN P) 0.15 % ophthalmic solution Use 1 Drop in the right eye twice daily. timolol maleate (TIMOPTIC) 0.5 % ophthalmic solution Use 1 Drop in the right eye twice daily. clobetasol (TEMOVATE) 0.05 % ointment Apply 1 application to affected area twice daily. TO AFFECTED AREA. >Zippered Compression Knee High 30-40 mm custom CUSTOM MEASURE FOR KNEE HIGH ANGELO COMPRESSION STOCKINGS, 30-40 MM, WITH ZIPPERS PLEASE. IF UNABLE, PLEASE REFER TO BALA AT [facility]. DX: EDEMA latanoprost (XALATAN) 0.005 % ophthalmic solution 1 Drop daily at bedtime. clobetasol (TEMOVATE) 0.05 % ointment Apply 1 application to affected area 3 times a WEEK. TO AFFECTED AREA. brimonidine-timolol (COMBIGAN) 0.2-0.5 % ophthalmic solution Use in both eyes. TRAVATAN Z 0.004 % Drop daily at bedtime. Cholecalciferol, Vitamin D3, 2,000 unit ORAL Cap Take one(1) tablet two(2) times daily. calcium carbonate(CALTRATE 600 600 MG (1,500 MG) TAB) Take one(1) tablet twice daily. FAMILY HISTORY Problem Relation Age of Onset Heart Mother Hypertension Mother Hypertension Father Heart Sister By-pass, Triple Heart Brother Stent other (Renal Stones) Daughter Glaucoma Brother Heart Maternal Aunt Social History Tobacco Use Smoking status: Former Years: 5.00 Types: Cigarettes Quit date: 07/06/1976 Years since quittin.5 Smokeless tobacco: Never Tobacco comments: Quit 1969' 4-5 cig per day Vaping Use Vaping Use: Never used Substance Use Topics Alcohol use: No Drug use: No PHYSICAL EXAM BP 140/70 (BP Site: Right Arm, BP Position: Sitting, BP Cuff Size: Large Adult) Pulse (!) 58 Temp 36.6 C (97.8 F) Resp 12 Ht 157.5 cm (5' 2 ) Wt 60.3 kg (133 lb) SpO2 97% BMI 24.33 kg/m General Appearance: well appearing, in no acute distress, alert Skin: Skin color, texture, turgor normal for age; Eyes: conjunctiva pink and moist, no icterus, sclera white, non-injected Lungs: Lungs clear to auscultation. No wheezing, rhonchi, rales. Heart: apical irregular without murmur, gallop, or rubs. No ectopy Health maintenance reviewed with patient: ADVANCE DIRECTIVE DISCUSSION Never done SHINGRIX VACCINE(1 of 2) due on 09/11/2023 COVID-19 VACCINE(4 - Moderna series) due on 09/11/2023 INFLUENZA(1) due on 02/27/2023 DTAP,TDAP,TD(3 - Td or Tdap) due on 06/07/2023 DIABETES SCREEN due on 06/03/2025 BONE DENSITY Completed DEPRESSION ASSESSMENT Completed PNEUMOCOCCAL: 65+ Completed DATA REVIEWED: No new labs ASSESSMENT/PLAN: 1. Essential hypertension - ICD9: 401.9, ICD10: I10 (primary diagnosis) - Improving control - keep upcoming appointmenth with cardiology for further evaluation - follow up in 3 months - Continue current medications - Recommend home blood pressure monitoring, to bring results to next visit - Encouraged sodium restriction, DASH or Mediterranean diet - Recommend regular aerobic exercise 2. 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 - Reviewed the need for Calcium and Vitamin D supplements and weight bearing exercise as tolerated - DXA-AXIAL SKELETON Prescription instructions reviewed with patient as applicable. Potential red flag symptoms discussed with the patient. Reviewed appropriate action plan to take if red flag symptoms occur. Patient agreeable to treatment plan. Jesusita Drake APRN.CNP documented in this encounter [facility] 12-16-2022 Miscellaneous Notes Please see Kayla Grace's note below as patient is requesting a refill on this medication Detailed message left for pt on her cell phone as noted in her chart to do. Leigh Ann Kirk LPN ' Please ask pt to follow with PCP for this as she has taken alendronate long-term. PCP will decide continuation or if and when she needs to stop it. Kayla Grace APRN.CNP Pharmacy generated refill request. Last seen 10/29/21 Requested Prescriptions Pending Prescriptions Disp Refills alendronate (FOSAMAX) 70 mg tablet [Pharmacy Med Name: ALENDRONATE SODIUM 70 MG TAB] 12 tablet 3 Sig: take 1 tablet by mouth every week Margie Wheeler RN documented in this encounter [facility] 12-10-2022 Note HNO ID: [id number] Author: Jesusita Drake APRN.CNP Service: ? Author Type: Nurse Practitioner Type: Progress Notes Filed: 12/11/2022 7:05 AM Note Text: CC: Patient presents with: Recheck: 2 month follow up HPI Reinier Stoner is a 87 year old female who presents today for blood pressure follow up. HTN: Ms. Stoner indicates that she is feeling well and denies any symptoms referable to elevated blood pressure. Specifically denies headache, chest pain, palpitations, dyspnea, and peripheral edema. Patient denies any side effects of her medication(s) and is compliant with their regimen. She does check BP's away from this office with average BP's in the 130s-150s/60s-70s range. Last 3 Encounter BP Readings: Date: BP: 12/10/2022 168/72 10/07/2022 146/80 09/10/2022 160/92 Recently saw nephrology, Dr. Sewell, and there are some medication discrepancies. Patient has been taking hydralazine BID but Dr. Sauceda note indicates she wanted her to take TID. Was started on xeralto last fall because of new onset a-fib. Has been fighting anemia and slow GI bleed since. In August she had an EGD with cauterization of bleed by Dr. Collins. Denies any dark sticky stools, blood in stools, nausea, vomiting, or abdominal pain. Last Hgb at [facility] was over 11 which was improved since prior to EGD. Because of this, patient is being recommended to a physician in [place] to have a possible watchman procedure completed so she can eventually be off of the xeralto. REVIEW OF SYSTEMS General: no fevers, no chills, no night sweats, no recurrent infections, no change in appetite, no change in energy, and no significant changes in weight Respiratory: no cough, no wheezing, no shortness of breath, no hemoptysis Cardiovascular: no chest pain, no chest pressure, no palpitations, and no swelling GI: No nausea, vomiting, or diarrhea Neurologic: No headache, weakness, numbness, tingling, dizziness, memory loss, syncope. 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, unspecified Glaucoma Hemorrhage of rectum and anus Obesity, unspecified Osteoporosis, unspecified Other and unspecified hyperlipidemia Personal history of colonic polyps 09/20/2014 Umbilical hernia 12/22/2012 Unspecified essential hypertension PAST SURGICAL HISTORY Procedure Laterality Date COLONOSCOPY FLX DX W/COLLJ SPEC WHEN PFRMD 01/09/2003 Colonoscopy w/ polypectomy COLONOSCOPY FLX DX W/COLLJ SPEC WHEN PFRMD 10/10/2014 Colonoscopy COLSC FLX W/RMVL OF TUMOR POLYP LESION SNARE TQ 10/24/08 HYSTEROSCOPY, DIAGNOSTIC (SEPARATE 08/21/1998 Hysteroscopy LIG/TRNSXJ FLP TUBE ABDL/VAG APPR UNI/BI 1976 Tubal ligation PAST SURGICAL HISTORY OF 09/27 CARDIAC CATH. PAST SURGICAL HISTORY OF 2018 Glaucoma - right eye left eye - [facility] . Dr Gao REPAIR FIRST ABDOMINAL WALL HERNIA 12/14/12 2cm defect - Parietex Composite ventral patch 6cm ALLERGIES Amantadine, Capoten [Captopril], Cephalexin, Erythromycin, Hctz [Thiazides], Ivp Dye [Iodine], and Norvasc [Amlodipine Besylate] MEDICATIONS potassium chloride (K-TAB) 10 mEq tablet Take 1 tablet by mouth twice daily. hydrALAZINE (APRESOLINE) 10 mg tablet Take 10 mg by mouth twice daily. losartan (COZAAR) 50 mg tablet take 1 tablet by mouth once daily furosemide (LASIX) 20 mg tablet Take 1 tablet by mouth once daily. carvedilol (COREG) 3.125 mg tablet Take 1 tablet by mouth twice daily. Spirometers and Accessories magdalena Use 3 times a day, each time blow into it for 10 reps levothyroxine (LEVOXYL) 25 mcg tablet Take 1 tablet by mouth once daily. Take on empty stomach. For Thyroid atorvastatin (LIPITOR) 20 mg tablet Take 1 tablet by mouth every 48 hours. metoprolol succinate ER (TOPROL XL) 50 mg 24 hr tablet Take 1 tablet by mouth once daily. predniSONE (DELTASONE) 10 mg tablet TAKE ORALLY DIRECTED. 30 MG FOR 3 DAYS, 20 MG FOR 3 DAYS, 10 MG FOR 7 days. TAKE WITH FOOD XARELTO 15 mg tablet Take 15 mg by mouth once daily. ondansetron orally disintegrating (ZOFRAN ODT) 4 mg disintegrating tablet Take 1 tablet by mouth every 8 hours as needed for nausea/vomiting. benzonatate (TESSALON PERLES) 100 mg capsule Take 1 capsule by mouth three times daily as needed for cough. omeprazole (PRILOSEC) 40 mg capsule Take 1 capsule by mouth daily before breakfast. 1/2 hr before meal. alendronate (FOSAMAX) 70 mg tablet take 1 tablet by mouth every week hydrocortisone 2.5 % ointment Apply 1 application to affected area twice daily. brimonidine (ALPHAGAN P) 0.15 % ophthalmic solution Use 1 Drop in the right eye twice daily. timolol maleate (TIMOPTIC) 0.5 % ophthalmic solution Use 1 Drop in the right eye twice daily. clobetasol (TEMOVATE) 0.05 % ointment Apply 1 application to affected area twice daily. TO AFFECTED A (more content not included)... [facility] 10-10-2022 Miscellaneous Notes Patient notified. ----- Message from Татьяна Barnard MD sent at 10/10/2022 8:12 AM EDT ----- Reinier iron levels are good. She would benefit from vit b12 tablets although her vit b12 levels are in the range of normal, they are low normal. Her hb is 10.1, which is leeser than 10.7 in the past. She may be losing some blood from gi tract , and following upwith the egd is a good idea Cont the compression stockings I hope her bp is staying better at home Regards, Татьяна Barnard MD documented in this encounter [facility] 10-08-2022 Miscellaneous Notes I sent pot chl tablets as requested regularly a Patient calling regarding her potassium chloride 10mEq prescription. Patient states capsules were ordered for her yesterday and she is requesting tablets. Please send order to Marla Khan. Thank you. documented in this encounter [facility] 10-07-2022 Note HNO ID: [id number] Author: Татьяна Barnard MD Service: ? Author Type: Physician Type: Progress Notes Filed: 10/07/2022 5:36 PM Note Text: Reason for Visit Patient presents with: Recheck: 4 week BP Reinier Stoner is a 86 year old female who presents here today for Above Complaints.. 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 In the past year we have had a hard time regulating her blood pressure after all hospitalizations from A-fib with RVR, cardioversion and addition of different medications along with anemia and issues with hypovolemia her Bp has been up and down a lot . Currently her systolic is in the high 140 to 150 range. She just saw Dr Sewell who put her on the hydralazine 3 times a day and bp is a little better. She is on cozaar, coreg, lasix 3 days a week in addition to the hydralazine. Lasix was decreased because of a worsening GFR more swelling now that the lasix has been cut back, She does use compression stockings Taking the potassium , and fosamax and prilosec every morning. We have not had her labs done in the past 2 to 3 months so we would like to recheck her thyroid along with her blood counts especially to check what her CBC is like. She has an upcoming EGD by Dr. Collins the animal cop. No problem-specific Assessment AND Plan notes found for this encounter. 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, unspecified Glaucoma Hemorrhage of rectum and anus Obesity, unspecified Osteoporosis, unspecified Other and unspecified hyperlipidemia Personal history of colonic polyps 09/20/2014 Umbilical hernia 12/22/2012 Unspecified essential hypertension PAST SURGICAL HISTORY Procedure Laterality Date COLONOSCOPY FLX DX W/COLLJ SPEC WHEN PFRMD 01/09/2003 Colonoscopy w/ polypectomy COLONOSCOPY FLX DX W/COLLJ SPEC WHEN PFRMD 10/10/2014 Colonoscopy COLSC FLX W/RMVL OF TUMOR POLYP LESION SNARE TQ 10/24/08 HYSTEROSCOPY, DIAGNOSTIC (SEPARATE 08/21/1998 Hysteroscopy LIG/TRNSXJ FLP TUBE ABDL/VAG APPR UNI/BI 1975 Tubal ligation PAST SURGICAL HISTORY OF 09/27 CARDIAC CATH. PAST SURGICAL HISTORY OF 05/2012, 2018 Glaucoma - May. right eye Jun. left eye - [facility] . Dr Gao REPAIR FIRST ABDOMINAL WALL HERNIA 12/14/12 2cm defect - Parietex Composite ventral patch 6cm FAMILY HISTORY Problem Relation Age of Onset Heart Mother Hypertension Mother Hypertension Father Heart Sister By-pass, Triple Heart Brother Stent other (Renal Stones) Daughter Glaucoma Brother Heart Maternal Aunt Social History Tobacco Use Smoking status: Former Years: 5.00 Types: Cigarettes Quit date: 07/06/1976 Years since quittin.2 Smokeless tobacco: Never Tobacco comments: Quit 1969' 4-5 cig per day Vaping Use Vaping Use: Never used Substance Use Topics Alcohol use: No Drug use: No Past medical history, appointments, medications, allergies reviewed. Pertinent Lab/Diagnostic Studies are reviewed and discussed today Current Outpatient Medications: hydrALAZINE (APRESOLINE) 10 mg tablet losartan (COZAAR) 50 mg tablet furosemide (LASIX) 20 mg tablet carvedilol (COREG) 3.125 mg tablet Spirometers and Accessories magdalena levothyroxine (LEVOXYL) 25 mcg tablet atorvastatin (LIPITOR) 20 mg tablet XARELTO 15 mg tablet ondansetron orally disintegrating (ZOFRAN ODT) 4 mg disintegrating tablet omeprazole (PRILOSEC) 40 mg capsule alendronate (FOSAMAX) 70 mg tablet potassium chloride SR (MICRO-K) 10 mEq CR capsule hydrocortisone 2.5 % ointment brimonidine (ALPHAGAN P) 0.15 % ophthalmic solution timolol maleate (TIMOPTIC) 0.5 % ophthalmic solution clobetasol (TEMOVATE) 0.05 % ointment >Zippered Compression Knee High 30-40 mm custom latanoprost (XALATAN) 0.005 % ophthalmic solution clobetasol (TEMOVATE) 0.05 % ointment brimonidine-timolol (COMBIGAN) 0.2-0.5 % ophthalmic solution TRAVATAN Z 0.004 % Drop Cholecalciferol, Vitamin D3, 2,000 unit ORAL Cap calcium carbonate(CALTRATE 600 600 MG (1,500 MG) TAB) metoprolol succinate ER (TOPROL XL) 50 mg 24 hr tablet predniSONE (DELTASONE) 10 mg tablet benzonatate (TESSALON PERLES) 100 mg capsule Review of Systems CONSTITUTIONAL: No fevers, chills night sweats, unintended weight loss CARDIOVASCULAR: No chest pain, dyspnea, palpitations, orthopnea, PND, ankle edema. PULM: No dyspnea, unexplained cough. GI: No dysphagia/odynophagia, probl (more content not included)... [facility] 09-10-2022 Note HNO ID: [id number] Author: Татьяна Barnard MD Service: ? Author Type: Physician Type: Progress Notes Filed: 09/10/2022 3:11 PM Note Text: Reason for Visit Patient presents with: Recheck: 3 month follow up Reinier Stoner is a 86 year old female who presents here today for Above Complaints.. Health Maintenance ADVANCE DIRECTIVE DISCUSSION DEPRESSION ASSESSMENT HPI Bp has been up and down a lot . Overall her systolic is in the high 140 to 150 range. She just saw Dr Sewell who put her on the hydralazine 2 times a day but it is still not working. Has a log of bp and they are mostly in the 135 to 157 range. She does not feel well on low bp. She is feeling much better now with higher bp. She is on cozaar, coreg, lasix. She has swelling in her legs during the day , goes down by morning. Mostly has it on the days she is eating a little more salt. She does use compression stockings Taking the potassium , and fosamax and prilosec every morning. Would like to check her thyroid too No problem-specific Assessment AND Plan notes found for this encounter. 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, unspecified Glaucoma Hemorrhage of rectum and anus Obesity, unspecified Osteoporosis, unspecified Other and unspecified hyperlipidemia Personal history of colonic polyps 09/20/2014 Umbilical hernia 12/22/2012 Unspecified essential hypertension PAST SURGICAL HISTORY Procedure Laterality Date COLONOSCOPY FLX DX W/COLLJ SPEC WHEN PFRMD 01/09/2003 Colonoscopy w/ polypectomy COLONOSCOPY FLX DX W/COLLJ SPEC WHEN PFRMD 10/10/2014 Colonoscopy COLSC FLX W/RMVL OF TUMOR POLYP LESION SNARE TQ 10/24/08 HYSTEROSCOPY, DIAGNOSTIC (SEPARATE 08/21/1998 Hysteroscopy LIG/TRNSXJ FLP TUBE ABDL/VAG APPR UNI/BI 1975 Tubal ligation PAST SURGICAL HISTORY OF 09/27 CARDIAC CATH. PAST SURGICAL HISTORY OF 05/2012, 2018 Glaucoma - May. right eye left eye - [facility] . Dr Gao REPAIR FIRST ABDOMINAL WALL HERNIA 12/14/12 2cm defect - Parietex Composite ventral patch 6cm FAMILY HISTORY Problem Relation Age of Onset Heart Mother Hypertension Mother Hypertension Father Heart Sister By-pass, Triple Heart Brother Stent other (Renal Stones) Daughter Glaucoma Brother Heart Maternal Aunt Social History Tobacco Use Smoking status: Former Years: 5.00 Types: Cigarettes Quit date: 07/06/1976 Years since quittin.2 Smokeless tobacco: Never Tobacco comments: Quit 1969's 4-5 cig per day Vaping Use Vaping Use: Never used Substance Use Topics Alcohol use: No Drug use: No Past medical history, appointments, medications, allergies reviewed. Pertinent Lab/Diagnostic Studies are reviewed and discussed today Current Outpatient Medications: hydrALAZINE (APRESOLINE) 10 mg tablet losartan (COZAAR) 50 mg tablet furosemide (LASIX) 20 mg tablet carvedilol (COREG) 3.125 mg tablet Spirometers and Accessories magdalena levothyroxine (LEVOXYL) 25 mcg tablet atorvastatin (LIPITOR) 20 mg tablet metoprolol succinate ER (TOPROL XL) 50 mg 24 hr tablet predniSONE (DELTASONE) 10 mg tablet XARELTO 15 mg tablet ondansetron orally disintegrating (ZOFRAN ODT) 4 mg disintegrating tablet benzonatate (TESSALON PERLES) 100 mg capsule omeprazole (PRILOSEC) 40 mg capsule alendronate (FOSAMAX) 70 mg tablet potassium chloride SR (MICRO-K) 10 mEq CR capsule hydrocortisone 2.5 % ointment brimonidine (ALPHAGAN P) 0.15 % ophthalmic solution timolol maleate (TIMOPTIC) 0.5 % ophthalmic solution clobetasol (TEMOVATE) 0.05 % ointment >Zippered Compression Knee High 30-40 mm custom latanoprost (XALATAN) 0.005 % ophthalmic solution clobetasol (TEMOVATE) 0.05 % ointment brimonidine-timolol (COMBIGAN) 0.2-0.5 % ophthalmic solution TRAVATAN Z 0.004 % Drop Cholecalciferol, Vitamin D3, 2,000 unit ORAL Cap calcium carbonate(CALTRATE 600 600 MG (1,500 MG) TAB) Review of Systems CONSTITUTIONAL: No fevers, chills night sweats, unintended weight loss CARDIOVASCULAR: No chest pain, dyspnea, palpitations, orthopnea, PND, ankle edema. PULM: No dyspnea, unexplained cough. GI: No dysphagia/odynophagia, problematic reflux, constipation, diarrhea, changes in stool habits, hematochezia, melena. : No new urinary complaints, including dysuria, gross hematuria or pyuria. NEURO: No new balance problems, peripheral weakness/paresthesias or numbness of concern. Physical Exam BP 158/84 Pulse (!) 56 Temp 36.4 ?C (97.5 ?F) (Temporal) Resp 16 Wt 60.3 kg (133 lb) SpO2 100% BMI 24.33 kg/m? General appearance: Well appearing, alert, in no acute distress, well nourished. Skin: Skin color, texture, turgor normal, no suspicious rashes or lesions Head: Normocephalic, no masses, lesions, tenderness or abnormalities Eyes: Anicteric (more content not included)... [facility] 09-10-2022 History of Presen t illness Narrative Reason for Visit Patient presents with: Recheck: 3 month follow up Reinier Stoner is a 86 year old female who presents here today for Above Complaints.. Health Maintenance ADVANCE DIRECTIVE DISCUSSION DEPRESSION ASSESSMENT HPI Bp has been up and down a lot . Overall her systolic is in the high 140 to 150 range. She just saw Dr Sewell who put her on the hydralazine 2 times a day but it is still not working. Has a log of bp and they are mostly in the 135 to 157 range. She does not feel well on low bp. She is feeling much better now with higher bp. She is on cozaar, coreg, lasix. She has swelling in her legs during the day , goes down by morning. Mostly has it on the days she is eating a little more salt. She does use compression stockings Taking the potassium , and fosamax and prilosec every morning. Would like to check her thyroid too No problem-specific Assessment & Plan notes found for this encounter. 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, unspecified Glaucoma Hemorrhage of rectum and anus Obesity, unspecified Osteoporosis, unspecified Other and unspecified hyperlipidemia Personal history of colonic polyps 09/20/2014 Umbilical hernia 12/22/2012 Unspecified essential hypertension PAST SURGICAL HISTORY Procedure Laterality Date COLONOSCOPY FLX DX W/COLLJ SPEC WHEN PFRMD 01/09/2003 Colonoscopy w/ polypectomy COLONOSCOPY FLX DX W/COLLJ SPEC WHEN PFRMD 10/10/2014 Colonoscopy COLSC FLX W/RMVL OF TUMOR POLYP LESION SNARE TQ 10/24/08 HYSTEROSCOPY, DIAGNOSTIC (SEPARATE 08/21/1998 Hysteroscopy LIG/TRNSXJ FLP TUBE ABDL/VAG APPR UNI/BI 1975 Tubal ligation PAST SURGICAL HISTORY OF 09/27 CARDIAC CATH. PAST SURGICAL HISTORY OF 05/2012, 2018 Glaucoma - May. right eye left eye - [facility] . Dr Gao REPAIR FIRST ABDOMINAL WALL HERNIA 12/14/12 2cm defect - Parietex Composite ventral patch 6cm FAMILY HISTORY Problem Relation Age of Onset Heart Mother Hypertension Mother Hypertension Father Heart Sister By-pass, Triple Heart Brother Stent other (Renal Stones) Daughter Glaucoma Brother Heart Maternal Aunt Social History Tobacco Use Smoking status: Former Years: 5.00 Types: Cigarettes Quit date: 07/06/1976 Years since quittin.2 Smokeless tobacco: Never Tobacco comments: Quit 1969' 4-5 cig per day Vaping Use Vaping Use: Never used Substance Use Topics Alcohol use: No Drug use: No Past medical history, appointments, medications, allergies reviewed. Pertinent Lab/Diagnostic Studies are reviewed and discussed today Current Outpatient Medications: hydrALAZINE (APRESOLINE) 10 mg tablet losartan (COZAAR) 50 mg tablet furosemide (LASIX) 20 mg tablet carvedilol (COREG) 3.125 mg tablet Spirometers and Accessories magdalena levothyroxine (LEVOXYL) 25 mcg tablet atorvastatin (LIPITOR) 20 mg tablet metoprolol succinate ER (TOPROL XL) 50 mg 24 hr tablet predniSONE (DELTASONE) 10 mg tablet XARELTO 15 mg tablet ondansetron orally disintegrating (ZOFRAN ODT) 4 mg disintegrating tablet benzonatate (TESSALON PERLES) 100 mg capsule omeprazole (PRILOSEC) 40 mg capsule alendronate (FOSAMAX) 70 mg tablet potassium chloride SR (MICRO-K) 10 mEq CR capsule hydrocortisone 2.5 % ointment brimonidine (ALPHAGAN P) 0.15 % ophthalmic solution timolol maleate (TIMOPTIC) 0.5 % ophthalmic solution clobetasol (TEMOVATE) 0.05 % ointment >Zippered Compression Knee High 30-40 mm custom latanoprost (XALATAN) 0.005 % ophthalmic solution clobetasol (TEMOVATE) 0.05 % ointment brimonidine-timolol (COMBIGAN) 0.2-0.5 % ophthalmic solution TRAVATAN Z 0.004 % Drop Cholecalciferol, Vitamin D3, 2,000 unit ORAL Cap calcium carbonate(CALTRATE 600 600 MG (1,500 MG) TAB) Review of Systems CONSTITUTIONAL: No fevers, chills night sweats, unintended weight loss CARDIOVASCULAR: No chest pain, dyspnea, palpitations, orthopnea, PND, ankle edema. PULM: No dyspnea, unexplained cough. GI: No dysphagia/odynophagia, problematic reflux, constipation, diarrhea, changes in stool habits, hematochezia, melena. : No new urinary complaints, including dysuria, gross hematuria or pyuria. NEURO: No new balance problems, peripheral weakness/paresthesias or numbness of concern. Physical Exam BP 158/84 Pulse (!) 56 Temp 36.4 C (97.5 F) (Temporal) Resp 16 Wt 60.3 kg (133 lb) SpO2 100% BMI 24.33 kg/m General appearance: Well appearing, alert, in no acute distress, well nourished. Skin: Skin color, texture, turgor normal, no suspicious rashes or lesions Head: Normocephalic, no masses, lesions, tenderness or abnormalities Eyes: Anicteric sclera. Pupils are equally round and reactive to light. Extraocular movements are intact. Lungs: Lungs clear to auscultation. No wheezing, rhonchi, rales Heart: RRR without murmur, gallop, or rubs. Extremities: No deformities, edema, skin discoloration, clubbing or cyanosis. Good capillary refill. ASSESSMENT/PLAN: 1. Anemia, unspecified type - ICD9: 285.9, ICD10: D64.9 (primary diagnosis) We will recheck her numbers 2. Essential hypertension - ICD9: 401.9, ICD10: I10 - good control - Recommended regular aerobic exercise. - Recommend home blood pressure monitoring, to bring results in on next visit - Goal of BP <130/80 3. Permanent atrial fibrillation (HCC) - ICD9: 427.31, ICD10: I48.21 4. Hypothyroidism, unspecified type - ICD9: 244.9, ICD10: E03.9 - Instructed patient on importance of taking on an empty stomach either first thing in the morning or at bedtime. Stable - Eat well program 5. Fatigue, unspecified type - ICD9: 780.79, ICD10: R53.83 Is better now than before. Татьяна Barnard MD documented in this encounter [facility] 08-04-2022 Miscellaneous Notes Pt called and is notified of providers message and instructions. Pt voices understanding. Cheryl Babulski, RN I would prefer a urine sample but also do not want to delay treatment. I am going to prescribe an antibiotic. If symptoms do not improve or at any time worsen, she really needs seen for further evaluation and for a urine sample. Thank you Jesusita Drake APRN.DARSHAN Pt called in and reports she took 2 at home UTI tests and they both came back positive, one yesterday and one this morning. She states she is having frequency, urgency, and lower abdominal pain. She states she doesn't know if she would be able to make it in to give urine sample as she has to pee every 15 min, but states the last time she was in the nurse gave her a container for urine. She says she could have someone bring it in for her if provider would like a UA and urine culture. Please call and advise. documented in this encounter [facility] 07-02-2022 Miscellaneous Notes Patient calling back Dr Frey office nurse said that the information faxed to [facility] attention Dr Frey please. Patient aware and has contact Dr. Cabrera office to update of recent labs. Message left asking office to call her back. Will discuss stopping Xeralto at that time. Yes, she needs to see Dr. Karina CHIANG, thanks for faxing that information. She really needs to be holding her blood thinner because she is likely GI bleeding but that comes with an increased risk for possible stroke given her a. Fib. I would recommend holding it at least until seen by Dr. Collins but she can call cardiology and discuss with them if she prefers. Spoke with patient and notified of same. Copy of last office visit and labs faxed to Dr. Collins's office. States she seen Celeste Bell PAINT STOCKMAN in Dr. Collins's office GI. Her phone technician is Dr. Frey. Stool test was positive for blood and blood counts slowly decreasing. Looks like she was referred to GI in the past, she needs to call and be seen with them MARIIA especially since on the Xarelto from cardiology for her a. Fib. Can we also find out who she sees for GI and cardiology? Thanks documented in this encounter [facility] 07-01-2022 Miscellaneous Notes Pt requesting 90 day supply. Felicity MONTENEGRO Patient has been identified by name and date of : Yes Pharmacy phones for refill(s): Requested Prescriptions Pending Prescriptions Disp Refills losartan (COZAAR) 50 mg tablet [Pharmacy Med Name: LOSARTAN POTASSIUM 50 MG TAB] 90 tablet 3 Sig: take 1 tablet by mouth once daily Date of last office visit in primary care: 05/07/22 next apt 09/10/22 Last 2 Encounter Wt Readings: Date: Wt: 06/11/2022 58.1 kg (128 lb) 05/07/2022 56.7 kg (125 lb) Previous labs/tests for medication: Blood Pressure: BUN (mg/dL) Date Value 06/03/2022 15 06/04/2021 19 Sodium (mmol/L) Date Value 06/03/2022 142 06/04/2021 142 Last 1 Encounter BP Readings: Date: BP: 06/11/2022 110/60 . Thank you. Felicity Sprague LPN documented in this encounter [facility] 06-13-2022 Miscellaneous Notes No TSH level in labs, discussed further in PCP visit. Jesusita Drake APRN.DARSHAN Latest lab placed on PCP for review. TSH was normal in March. Was this drawn elsewhere? If so please get result on place on mine or Dr. Dumont desk. Thank you Jesusita Drake APRN.CNP Daughter calls back to report thyroid lab was off at the beginning of April. Daughter believes Dr. Sewell had ordered that one. The pt saw Dr. Frey in April and he said her tsh was a little off and pcp might want to recheck thyroid labs. Briana Yan LPN Pt daughter, Jessa, calling to state pt's phone technician wanted thyroid levels rechecked. Pt is coming into office early next week to have labs drawn for PCP (CMP, CBC). Jessa asking if PCP will add thyroid labs on so pt get it all done with 1 lab drawn. Advised PCP is out of office until Thursday. Please advise and notify Jessa. Richie Johnson LPN documented in this encounter [facility] documented as of this encounter (statuses as of 01/28/2023) [facility]12-01-2022 History of Past illness Narrative* Problem Noted Date Diagnosed Date Resolved Date Palpitations 05/29/2022 01/23/2023 01/23/2023 Incisional hernia 12/14/2012 08/06/2016 Urgency of urination 02/20/2009 020 Urge incontinence 02/20/2009 08/06/2016 Female stress incontinence 02/20/2009 0 08/06/2016 Nocturia 02/20/2009 08/06/2016 Symptomatic menopausal or fe male climacteric states 02/20/2009 08/06/2016 Postmenopausal atrophic vaginitis 02/20/2009 06/14/2020 Disorder of bone and cartilage, unspecified 02/20/2009 03/24/2012 Hypopotassemia 01/06/2008 08/06/2016 Osteoporosis, unspecified HYPERLIPIDEMIA NEC/NOS 09/24 OVERWEIGHT 09/25/2015 Internal hemorrhoids without mention of complication 08/06/2016 documented as of this encounter (statuses as of 02/03/2023) [facility] History of Past illness Narrative* Problem Noted Date Diagnosed Date Resolved Date Palpitations 05/29/2022 01/23/2023 01/23/2023 Incisional hernia 12/14/2012 08/06/2016 Urgency of urination 02/20/2009 020 Urge incontinence 02/20/2009 08/06/2016 Female stress incontinence 02/20/2009 0 08/06/2016 Nocturia 02/20/2009 08/06/2016 Symptomatic menopausal or fe male climacteric states 02/20/2009 08/06/2016 Postmenopausal atrophic vaginitis 02/20/2009 06/14/2020 Disorder of bone and cartilage, unspecified 02/20/2009 03/24/2012 Hypopotassemia 01/06/2008 08/06/2016 Osteoporosis, unspecified HYPERLIPIDEMIA NEC/NOS 09/24 OVERWEIGHT 09/25/2015 Internal hemorrhoids without mention of complication 08/06/2016 documented as of this encounter (statuses as of 02/04/2023) [facility] History of Past illness Narrative* Problem Noted Date Diagnosed Date Resolved Date Palpitations 05/29/2022 01/23/2023 01/23/2023 Incisional hernia 12/14/2012 08/06/2016 Urgency of urination 02/20/2009 020 Urge incontinence 02/20/2009 08/06/2016 Female stress incontinence 02/20/2009 0 08/06/2016 Nocturia 02/20/2009 08/06/2016 Symptomatic menopausal or fe male climacteric states 02/20/2009 08/06/2016 Postmenopausal atrophic vaginitis 02/20/2009 06/14/2020 Disorder of bone and cartilage, unspecified 02/20/2009 03/24/2012 Hypopotassemia 01/06/2008 08/06/2016 Osteoporosis, unspecified HYPERLIPIDEMIA NEC/NOS 09/24 OVERWEIGHT 09/25/2015 Internal hemorrhoids without mention of complication 08/06/2016 documented as of this encounter (statuses as of 02/20/2023) [facility] History of Past illness Narrative* Problem Noted Date Diagnosed Date Resolved Date Palpitations 05/29/2022 01/23/2023 01/23/2023 Incisional hernia 12/14/2012 08/06/2016 Urgency of urination 02/20/2009 020 Urge incontinence 02/20/2009 08/06/2016 Female stress incontinence 02/20/2009 0 08/06/2016 Nocturia 02/20/2009 08/06/2016 Symptomatic menopausal or fe male climacteric states 02/20/2009 08/06/2016 Postmenopausal atrophic vaginitis 02/20/2009 06/14/2020 Disorder of bone and cartilage, unspecified 02/20/2009 03/24/2012 Hypopotassemia 01/06/2008 08/06/2016 Osteoporosis, unspecified HYPERLIPIDEMIA NEC/NOS 09/24 OVERWEIGHT 09/25/2015 Internal hemorrhoids without mention of complication 08/06/2016 documented as of this encounter (statuses as of 03/23/2023) [facility] History of Past illness Narrative* Problem Noted Date Diagnosed Date Resolved Date Palpitations 05/29/2022 01/23/2023 01/23/2023 Incisional hernia 12/14/2012 08/06/2016 Urgency of urination 02/20/2009 020 Urge incontinence 02/20/2009 08/06/2016 Female stress incontinence 02/20/2009 0 08/06/2016 Nocturia 02/20/2009 08/06/2016 Symptomatic menopausal or fe male climacteric states 02/20/2009 08/06/2016 Postmenopausal atrophic vaginitis 02/20/2009 06/14/2020 Disorder of bone and cartilage, unspecified 02/20/2009 03/24/2012 Hypopotassemia 01/06/2008 08/06/2016 Osteoporosis, unspecified HYPERLIPIDEMIA NEC/NOS 09/24 OVERWEIGHT 09/25/2015 Internal hemorrhoids without mention of complication 08/06/2016 documented as of this encounter (statuses as of 04/10/2023) [facility] History of Past illness Narrative* Problem Noted Date Diagnosed Date Resolved Date Palpitations 05/29/2022 01/23/2023 01/23/2023 Incisional hernia 12/14/2012 08/06/2016 Urgency of urination 02/20/2009 020 Urge incontinence 02/20/2009 08/06/2016 Female stress incontinence 02/20/2009 0 08/06/2016 Nocturia 02/20/2009 08/06/2016 Symptomatic menopausal or fe male climacteric states 02/20/2009 08/06/2016 Postmenopausal atrophic vaginitis 02/20/2009 06/14/2020 Disorder of bone and cartilage, unspecified 02/20/2009 03/24/2012 Hypopotassemia 01/06/2008 08/06/2016 Osteoporosis, unspecified HYPERLIPIDEMIA NEC/NOS 09/24 OVERWEIGHT 09/25/2015 Internal hemorrhoids without mention of complication 08/06/2016 documented as of this encounter (statuses as of 04/15/2023) [facility] History of Past illness Narrative* Problem Noted Date Diagnosed Date Resolved Date Palpitations 05/29/2022 01/23/2023 01/23/2023 Incisional hernia 12/14/2012 08/06/2016 Urgency of urination 02/20/2009 020 Urge incontinence 02/20/2009 08/06/2016 Female stress incontinence 02/20/2009 0 08/06/2016 Nocturia 02/20/2009 08/06/2016 Symptomatic menopausal or fe male climacteric states 02/20/2009 08/06/2016 Postmenopausal atrophic vaginitis 02/20/2009 06/14/2020 Disorder of bone and cartilage, unspecified 02/20/2009 03/24/2012 Hypopotassemia 01/06/2008 08/06/2016 Osteoporosis, unspecified HYPERLIPIDEMIA NEC/NOS 09/24 OVERWEIGHT 09/25/2015 Internal hemorrhoids without mention of complication 08/06/2016 documented as of this encounter (statuses as of 04/16/2023) [facility] History of Past illness Narrative* Problem Noted Date Diagnosed Date Resolved Date Palpitations 05/29/2022 01/23/2023 01/23/2023 Incisional hernia 12/14/2012 08/06/2016 Urgency of urination 02/20/2009 020 Urge incontinence 02/20/2009 08/06/2016 Female stress incontinence 02/20/2009 0 08/06/2016 Nocturia 02/20/2009 08/06/2016 Symptomatic menopausal or fe male climacteric states 02/20/2009 08/06/2016 Postmenopausal atrophic vaginitis 02/20/2009 06/14/2020 Disorder of bone and cartilage, unspecified 02/20/2009 03/24/2012 Hypopotassemia 01/06/2008 08/06/2016 Osteoporosis, unspecified HYPERLIPIDEMIA NEC/NOS 09/24 OVERWEIGHT 09/25/2015 Internal hemorrhoids without mention of complication 08/06/2016 documented as of this encounter (statuses as of 05/03/2023) [facility] History of Past illness Narrative* Problem Noted Date Diagnosed Date Resolved Date Palpitations 05/29/2022 01/23/2023 01/23/2023 Incisional hernia 12/14/2012 08/06/2016 Urgency of urination 02/20/2009 020 Urge incontinence 02/20/2009 08/06/2016 Female stress incontinence 02/20/2009 0 08/06/2016 Nocturia 02/20/2009 08/06/2016 Symptomatic menopausal or fe male climacteric states 02/20/2009 08/06/2016 Postmenopausal atrophic vaginitis 02/20/2009 06/14/2020 Disorder of bone and cartilage, unspecified 02/20/2009 03/24/2012 Hypopotassemia 01/06/2008 08/06/2016 Osteoporosis, unspecified HYPERLIPIDEMIA NEC/NOS 09/24 OVERWEIGHT 09/25/2015 Internal hemorrhoids without mention of complication 08/06/2016 documented as of this encounter (statuses as of 05/05/2023) [facility] History of Past illness Narrative* Problem Noted Date Diagnosed Date Resolved Date Palpitations 05/29/2022 01/23/2023 01/23/2023 Incisional hernia 12/14/2012 08/06/2016 Urgency of urination 02/20/2009 020 Urge incontinence 02/20/2009 08/06/2016 Female stress incontinence 02/20/2009 0 08/06/2016 Nocturia 02/20/2009 08/06/2016 Symptomatic menopausal or fe male climacteric states 02/20/2009 08/06/2016 Postmenopausal atrophic vaginitis 02/20/2009 06/14/2020 Disorder of bone and cartilage, unspecified 02/20/2009 03/24/2012 Hypopotassemia 01/06/2008 08/06/2016 Osteoporosis, unspecified HYPERLIPIDEMIA NEC/NOS 09/24 OVERWEIGHT 09/25/2015 Internal hemorrhoids without mention of complication 08/06/2016 documented as of this encounter (statuses as of 05/07/2023) [facility] [facility] of Past [facility] Narrative* Problem Noted Date Diagnosed Date Resolved Date Palpitations 05/29/2022 01/23/2023 01/23/2023 Incisional hernia 12/14/2012 08/06/2016 Urgency of urination 02/20/2009 020 Urge incontinence 02/20/2009 08/06/2016 Female stress incontinence 02/20/2009 0 08/06/2016 Nocturia 02/20/2009 08/06/2016 Symptomatic menopausal or fe male climacteric states 02/20/2009 08/06/2016 Postmenopausal atrophic vaginitis 02/20/2009 06/14/2020 Disorder of bone and cartilage, unspecified 02/20/2009 03/24/2012 Hypopotassemia 01/06/2008 08/06/2016 Osteoporosis, unspecified HYPERLIPIDEMIA NEC/NOS 09/24 OVERWEIGHT 09/25/2015 Internal hemorrhoids without mention of complication 08/06/2016 documented as of this encounter (statuses as of 06/02/2023) [facility]11-09-2022 History of Present illness Narrative* Татьяна Barnard MD - 05/07/2022 1:04 PM EST Reason for Visit No chief complaint on file. Reinier Stoner is a 86 year old female who presents here today for Above Complaints.. Health Maintenance SHINGRIX VACCINE(1 of 2) ADVANCE DIRECTIVE DISCUSSION COVID-19 VACCINE(4 - Booster for Moderna series) HPI Patient was in the hospital recently, for afib with RVR, that needed cardiovereted, as she seemed in hemodynamic instability she was bradycardic in the hospital with low bp and then they decided to covert, she was also started on drip for lasix. She was depleted of magnesium and she got to that ok. She has not had any more hot flashes recently , the last 2 days was very good, her appetite has come back recently. She has to watch her fluid in take because of the fluid. Her kidney functions have stablized, coreg restarted, bp is good. She is seeing next Thursday. She is on cozaar at 50 mgs. Once daily, she takes the medication. No problem-specific Assessment & Plan notes found for this encounter. 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, unspecified Glaucoma Hemorrhage of rectum and anus Obesity, unspecified Osteoporosis, unspecified Other and unspecified hyperlipidemia Personal history of colonic polyps 09/20/2014 Umbilical hernia 12/22/2012 Unspecified essential hypertension PAST SURGICAL HISTORY Procedure Laterality Date COLONOSCOPY FLX DX W/COLLJ SPEC WHEN PFRMD 01/09/2003 Colonoscopy w/ polypectomy COLONOSCOPY FLX DX W/COLLJ SPEC WHEN PFRMD 10/10/2014 Colonoscopy COLSC FLX W/RMVL OF TUMOR POLYP LESION SNARE TQ 10/24/08 HYSTEROSCOPY, DIAGNOSTIC (SEPARATE 08/21/1998 Hysteroscopy LIG/TRNSXJ FLP TUBE ABDL/VAG APPR UNI/BI 1975 Tubal ligation PAST SURGICAL HISTORY OF 09/27 CARDIAC CATH. PAST SURGICAL HISTORY OF 05/2012, 2019 Glaucoma - May. right eye Jun. left eye - [facility] . Dr Gao REPAIR FIRST ABDOMINAL WALL HERNIA 12/14/12 2cm defect - Parietex Composite ventral patch 6cm FAMILY HISTORY Problem Relation Age of Onset Heart Mother Hypertension Mother Hypertension Father Heart Sister By-pass, Triple Heart Brother Stent other (Renal Stones) Daughter Glaucoma Brother Heart Maternal Aunt Social History Tobacco Use Smoking status: Former Years: 5.00 Types: Cigarettes Quit date: 07/06/1976 Years since quittin.8 Smokeless tobacco: Never Tobacco comments: Quit 1969' 4-5 cig per day Vaping Use Vaping Use: Never used Substance Use Topics Alcohol use: No Drug use: No Past medical history, appointments, medications, allergies reviewed. Pertinent Lab/Diagnostic Studies are reviewed and discussed today Current Outpatient Medications: losartan (COZAAR) 50 mg tablet levothyroxine (LEVOXYL) 25 mcg tablet atorvastatin (LIPITOR) 20 mg tablet furosemide (LASIX) 20 mg tablet XARELTO 15 mg tablet ondansetron orally disintegrating (ZOFRAN ODT) 4 mg disintegrating tablet omeprazole (PRILOSEC) 40 mg capsule alendronate (FOSAMAX) 70 mg tablet potassium chloride SR (MICRO-K) 10 mEq CR capsule brimonidine (ALPHAGAN P) 0.15 % ophthalmic solution latanoprost (XALATAN) 0.005 % ophthalmic solution carvedilol (COREG) 3.125 mg tablet Spirometers and Accessories magdalena metoprolol succinate ER (TOPROL XL) 50 mg 24 hr tablet predniSONE (DELTASONE) 10 mg tablet benzonatate (TESSALON PERLES) 100 mg capsule losartan (COZAAR) 25 mg tablet hydrocortisone 2.5 % ointment timolol maleate (TIMOPTIC) 0.5 % ophthalmic solution clobetasol (TEMOVATE) 0.05 % ointment >Zippered Compression Knee High 30-40 mm custom clobetasol (TEMOVATE) 0.05 % ointment brimonidine-timolol (COMBIGAN) 0.2-0.5 % ophthalmic solution TRAVATAN Z 0.004 % Drop Cholecalciferol, Vitamin D3, 2,000 unit ORAL Cap calcium carbonate(CALTRATE 600 600 MG (1,500 MG) TAB) Review of Systems CONSTITUTIONAL: No fevers, chills night sweats, unintended weight loss CARDIOVASCULAR: No chest pain, dyspnea, palpitations, orthopnea, PND, ankle edema. PULM: No dyspnea, unexplained cough. GI: No dysphagia/odynophagia, problematic reflux, constipation, diarrhea, changes in stool habits, hematochezia, melena. : No new urinary complaints, including dysuria, gross hematuria or pyuria. NEURO: No new balance problems, peripheral weakness/paresthesias or numbness of concern. Physical Exam BP 122/76 (BP Site: Left Arm, BP Position: Sitting, BP Cuff Size: Regular Adult) Pulse 69 Resp 12 Ht 157.5 cm (5' 2 ) Wt 56.7 kg (125 lb) SpO2 99% BMI 22.86 kg/m General appearance: Well appearing, alert, in no acute distress, well nourished. Skin: Skin color, texture, turgor normal, no suspicious rashes or lesions Head: Normocephalic, no masses, lesions, tenderness or abnormalities Eyes: Anicteric sclera. Pupils are equally round and reactive to light. Extraocular movements are intact. Lungs: Lungs clear to auscultation. No wheezing, rhonchi, rales Heart: RRR without murmur, gallop, or rubs. Extremities: No deformities, edema, skin discoloration, clubbing or cyanosis. Good capillary refill. ASSESSMENT/PLAN: 1. Pulmonary hypertension (HCC) - ICD9: 416.8, ICD10: I27.20 (primary diagnosis) I think the patients current regimen for lasix are working for her. 2. Pedal edema - ICD9: 782.3, ICD10: R60.0 - FUROSEMIDE 20 MG TABLET 3. Permanent atrial fibrillation (HCC) - ICD9: 427.31, ICD10: I48.21 cardioverted 4. Mixed hyperlipidemia - ICD9: 272.2, ICD10: E78.2 Cont the statin 5. Hypertensive kidney disease with stage 3b chronic kidney disease (HCC) - ICD9: 403.90, 585.3, ICD10: I12.9, N18.32 6. Essential hypertension - ICD9: 401.9, ICD10: I10 Controlled today 7. Stage 3a chronic kidney disease (HCC) - ICD9: 585.3, ICD10: N18.31 CKD: Stage 3, recent labs reviewed, shows GFR is stable, not significantly changed from previous labs. Discussed the importance of staying off the NSAIDs naproxen, motrin, brufen, aleve etc and contrast., adequate hydration Keeping blood pressure under control. Татьяна Barnard MD [facility] History of Present illness Narrative* Татьяна Barnard MD - 04/21/2022 2:57 PM EDT Reason for Visit Patient presents with: Follow Up Reinier Stoner is a 86 year old female who presents here today for Above Complaints.. Health Maintenance SHINGRIX VACCINE(1 of 2) ADVANCE DIRECTIVE DISCUSSION COVID-19 VACCINE(4 - Booster for Moderna series) INFLUENZA(1) HPI Last visit we cut down patient's Norvasc, losartan and Lasix to half of what it was and her blood pressure is up, creatinine is doing better. It is almost stabilized. She is feeling much much better today. X-ray of the chest did shows some consistent and continued effusion after her pneumonia. Her anemiahas resolved and she is now back to being in the normal range. She does feel much better she is nottaking deep breaths so I advised incentive spirometer for her. I will see her in 6weeks to make sure that her x- ray is showing some improvement No problem-specific Assessment & Plan notes found for this encounter. 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, unspecified Glaucoma Hemorrhage of rectum and anus Obesity, unspecified Osteoporosis, unspecified Other and unspecified hyperlipidemia Personal history of colonic polyps 09/20/2014 Umbilical hernia 12/22/2012 Unspecified essential hypertension PAST SURGICAL HISTORY Procedure Laterality Date COLONOSCOPY FLX DX W/COLLJ SPEC WHEN PFRMD 01/09/2003 Colonoscopy w/ polypectomy COLONOSCOPY FLX DX W/COLLJ SPEC WHEN PFRMD 10/10/2014 Colonoscopy COLSC FLX W/RMVL OF TUMOR POLYP LESION SNARE TQ 10/24/08 HYSTEROSCOPY, DIAGNOSTIC (SEPARATE 08/21/1998 Hysteroscopy LIG/TRNSXJ FLP TUBE ABDL/VAG APPR UNI/BI 1976 Tubal ligation PAST SURGICAL HISTORY OF 09/27 CARDIAC CATH. PAST SURGICAL HISTORY OF 05/2012, 2018 Glaucoma - May. right eye left eye - [facility] . Dr Gao REPAIR FIRST ABDOMINAL WALL HERNIA 12/14/12 2cm defect - Parietex Composite ventral patch 6cm FAMILY HISTORY Problem Relation Age of Onset Heart Mother Hypertension Mother Hypertension Father Heart Sister By-pass, Triple Heart Brother Stent other (Renal Stones) Daughter Glaucoma Brother Heart Maternal Aunt Social History Tobacco Use Smoking status: Former Years: 5.00 Types: Cigarettes Quit date: 07/06/1976 Years since quittin.8 Smokeless tobacco: Never Tobacco comments: Quit 1969' 4-5 cig per day Vaping Use Vaping Use: Never used Substance Use Topics Alcohol use: No Drug use: No Past medical history, appointments, medications, allergies reviewed. Pertinent Lab/Diagnostic Studies are reviewed and discussed today Current Outpatient Medications: Spirometers and Accessories magdalena levothyroxine (LEVOXYL) 25 mcg tablet atorvastatin (LIPITOR) 20 mg tablet furosemide (LASIX) 20 mg tablet metoprolol succinate ER (TOPROL XL) 50 mg 24 hr tablet predniSONE (DELTASONE) 10 mg tablet XARELTO 15 mg tablet ondansetron orally disintegrating (ZOFRAN ODT) 4 mg disintegrating tablet benzonatate (TESSALON PERLES) 100 mg capsule omeprazole (PRILOSEC) 40 mg capsule losartan (COZAAR) 25 mg tablet alendronate (FOSAMAX) 70 mg tablet potassium chloride SR (MICRO-K) 10 mEq CR capsule hydrocortisone 2.5 % ointment brimonidine (ALPHAGAN P) 0.15 % ophthalmic solution timolol maleate (TIMOPTIC) 0.5 % ophthalmic solution clobetasol (TEMOVATE) 0.05 % ointment >Zippered Compression Knee High 30-40 mm custom latanoprost (XALATAN) 0.005 % ophthalmic solution clobetasol (TEMOVATE) 0.05 % ointment brimonidine-timolol (COMBIGAN) 0.2-0.5 % ophthalmic solution TRAVATAN Z 0.004 % Drop Cholecalciferol, Vitamin D3, 2,000 unit ORAL Cap calcium carbonate(CALTRATE 600 600 MG (1,500 MG) TAB) Review of Systems CONSTITUTIONAL: No fevers, chills night sweats, unintended weight loss CARDIOVASCULAR: No chest pain, dyspnea, palpitations, orthopnea, PND, ankle edema. PULM: No dyspnea, unexplained cough. GI: No dysphagia/odynophagia, problematic reflux, constipation, diarrhea, changes in stool habits, hematochezia, melena. : No new urinary complaints, including dysuria, gross hematuria or pyuria. NEURO: No new balance problems, peripheral weakness/paresthesias or numbness of concern. Physical Exam BP 128/84 (BP Site: Right Arm, BP Position: Sitting, BP Cuff Size: Regular Adult) Pulse 89 Temp37 C (98.6 F) Resp 12 Ht 157.5 cm (5' 2 ) Wt 59.4 kg (131 lb) SpO2 98% BMI 23.96 kg/m General appearance: Well appearing, alert, in no acute distress, well nourished. Skin: Skin color, texture, turgor normal, no suspicious rashes or lesions Head: Normocephalic, no masses, lesions, tenderness or abnormalities Eyes: Anicteric sclera. Pupils are equally round and reactive to light. Extraocular movements are intact. Lungs: Lungs clear to auscultation. No wheezing, rhonchi, rales Heart: RRR without murmur, gallop, or rubs. Extremities: No deformities, edema, skin discoloration, clubbing or cyanosis. Good capillary refill. ASSESSMENT/PLAN: 1. Pleural effusion - ICD9: 511.9, ICD10: J90 (primary diagnosis) To take deep breaths - SPIROMETERS AND ACCESSORIES 2. Hypothyroidism, unspecified type - ICD9: 244.9, ICD10: E03.9 - Instructed patient on importance of taking on an empty stomach either first thing in the morning or at bedtime. Stable - Eat well program 3. Atelectasis - ICD9: 518.0, ICD10: J98.11 - SPIROMETERS AND ACCESSORIES 4. History of recent pneumonia - ICD9: V12.61, ICD10: Z87.01 - XR CHEST 2V FRONTAL/LAT 5. Need for influenza vaccination - ICD9: V04.81, ICD10: Z23 - INFLUENZA SEASONAL QUADRIVALENT HIGH DOSE AGE 65+ 6. Anemia, unspecified type - ICD9: 285.9, ICD10: D64.9 7. Congestive heart failure, unspecified HF chronicity, unspecified heart failure type (HCC) - ICD9: 428.0, ICD10: I50.9 We need precarious fluid adjustment due to her kidneys and her heart both being affected. We discussed Lasix and how to increase and decrease depending on body weight and how she feels. 8. Stage 3b chronic kidney disease (HCC) - ICD9: 585.3, ICD10: N18.32 CKD: Stage 3, recent labs reviewed, shows GFR is stable, not significantly changed from previous labs. Discussed the importance of staying off the NSAIDs naproxen, motrin, brufen, aleve etc and contrast., adequate hydration Keeping blood pressure under control. Татьяна Barnard MD documented in this encounterKn[facility]10-17-[facility]22 Miscellaneous Notes* Telephone Encounter - Татьяна Barnard MD - 04/14/2022 4:41 PM EDT noted * Telephone Encounter - Marion Santana LPN - 04/14/2022 11:03 AM EDT Spoke with patient and she said that almost no coughing this morning. Weakness seems to be improving. Breathing may be a little tight but she is doing more things that she had not been doing for quite a long time. BP over the weekend 130/87 this morning down 107/72. She will push the fluids as advised and get lab work on . Patient also agrees that if any change in how she is feeling priorto she will call office to update but at this time isn't concerned or feeling like she would like ATB. * Telephone Encounter - Татьяна Barnard MD - 04/14/2022 9:33 AM EDT Please ask patient to drink a lot of water and come on to give blood work With her low bp and less flow to the kidneys her numbers reflect her having less water. So drink at least 1.5 litres of water for the next few days. Her chest xr showed some fluid, which was expected. If she is having more weakness, cough, sob , fever or chills, we would need to know, as we may have to start her on abx for possible early pneumonia. documented in this encounterKnox [facility]10-14-2022 Miscellaneous Notes* Telephone Encounter - Joyce Dewey LPN - 04/11/2022 5:04 PM EDT Patient notified of providers message and verbalized understanding. * Telephone Encounter - Татьяна Barnard MD - 04/11/2022 4:42 PM EDT We had changed patient's blood pressure regimen a couple days ago because of her very low blood pressures at that time her blood pressure at the visit was 90 x 52. I think she is dehydrated and her kidneys are hypoperfused. To bring to bring her blood pressure up I had stopped her Coreg and started on metoprolol and also completely stopped the Norvasc. She is on a water pill to get rid of the water. I would like her to call us with blood pressure results on Thursday and also to let us know how she is doing over the weekend. Please tell patient that because her overall blood pressure was so low and her kidneys were not getting enough of circulation especially because her water pill was increased her kidney function had come up. At any point in the weekend if she does not feel GERD she needs to go to the ED. Otherwise we would like an update on Thursday, increase food fluid intake over the weekend and also blood work possibly in the middle of the week. Regards, Татьяна Barnard MD * Telephone Encounter - Татьяна Barnard MD - 02/21/2022 5:56 PM EDT We sent her to urgent care * Telephone Encounter - Sebastien Smith RN - 02/21/2022 1:21 PM EDT Patient reports BP right now is 94/60 (59). Yesterday BP 89/65 (61). Feeling tired. Yesterday has alittle chest pressure but none today. No other symptoms. Drinking fluids. Eating a little. POX 96 to 97%. Currently taking- Losartan 100 mg 1/2 tab daily Carvediol 12.5 mg 1 tab twice daily Amlodipine 2.5 mg twice daily. Scheduled same day appt with pcp. documented in this encounterKn[facility]10-13-2022 Miscellaneous Notes* Telephone Encounter - Olga Juarez LPN - 04/10/2022 11:39 AM EDT Patient currently getting xray now * Telephone Encounter - Jesusita Drake APRN.CNP - 04/10/2022 11:34 AM EDT Patient saw Dr. Barnard yesterday and was told to have follow up chest xray for continued cough. Order placed. Jesusita Drake APRN.CNP documented in this encounterKnox [facility]10-12-2022 History of Present illness Narrative* Татьяна Barnard MD - 04/09/2022 5:30 PM EDT Reason for Visit Patient presents with: Recheck: wants something for the cough Reinier Stoner is a 86 year old female who presents here today for Above Complaints. Health Maintenance SHINGRIX VACCINE(1 of 2) ADVANCE DIRECTIVE DISCUSSION DEPRESSION ASSESSMENT COVID-19 VACCINE(4 - Booster for Moderna series) INFLUENZA(1) KENDY Marinelli has had a very hard time in the last few weeks. She was admitted a couple times with CHF fromA. fib and RVR. She was having diarrhea, pedal edema and she is having a cough. She was admitted recently for pneumonia Diarrhea is better after switching from eliquis to xeralto this was done recently She was in the hospital 7 days ago, she has been coughing a lot , this started after the pneumonia.The x-ray though revealed resolution of the pneumonia she had a few weeks ago. She was diuresed as she was in andres congestive heart failure. Her creatinine was creeping up so that was a limitation with her dialysis Never had asthma in the past. Denies having any symptoms of gerd. Does not bring up any thing with cough. This cough is new and only after her pneumonia. It comes in bouts. There is no fever or chills. There is no sputum production. No history of reactive airways in the past Very very tired and her blood pressure seems to be more in the 90s over 50s. She is on Coreg at 6.1252 times a day, Norvasc 2.5 twice a day. Today we are making some changes. Taking her off the Norvasc. Taking her off the Coreg and substituting that with metoprolol hopefully the rebound tachycardiawith stopping the Norvasc would be corrected because of the metoprolol No problem-specific Assessment & Plan notes found for this encounter. 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, unspecified Glaucoma Hemorrhage of rectum and anus Obesity, unspecified Osteoporosis, unspecified Other and unspecified hyperlipidemia Personal history of colonic polyps 09/20/2014 Umbilical hernia 12/22/2012 Unspecified essential hypertension PAST SURGICAL HISTORY Procedure Laterality Date COLONOSCOPY FLX DX W/COLLJ SPEC WHEN PFRMD 01/09/2003 Colonoscopy w/ polypectomy COLONOSCOPY FLX DX W/COLLJ SPEC WHEN PFRMD 10/10/2014 Colonoscopy COLSC FLX W/RMVL OF TUMOR POLYP LESION SNARE TQ 10/24/08 HYSTEROSCOPY, DIAGNOSTIC (SEPARATE 08/21/1998 Hysteroscopy LIG/TRNSXJ FLP TUBE ABDL/VAG APPR UNI/BI 1975 Tubal ligation PAST SURGICAL HISTORY OF 09/27 CARDIAC CATH. PAST SURGICAL HISTORY OF 2018 Glaucoma - right eye left eye - [facility] . Dr Gao REPAIR FIRST ABDOMINAL WALL HERNIA 12/14/12 2cm defect - Parietex Composite ventral patch 6cm FAMILY HISTORY Problem Relation Age of Onset Heart Mother Hypertension Mother Hypertension Father Heart Sister By-pass, Triple Heart Brother Stent other (Renal Stones) Daughter Glaucoma Brother Heart Maternal Aunt Social History Tobacco Use Smoking status: Former Years: 5.00 Types: Cigarettes Quit date: 07/06/1976 Years since quittin.7 Smokeless tobacco: Never Tobacco comments: Quit 1970's 4-5 cig per day Vaping Use Vaping Use: Never used Substance Use Topics Alcohol use: No Drug use: No Past medical history, appointments, medications, allergies reviewed. Pertinent Lab/Diagnostic Studies are reviewed and discussed today Current Outpatient Medications: XARELTO 15 mg tablet ondansetron orally disintegrating (ZOFRAN ODT) 4 mg disintegrating tablet benzonatate (TESSALON PERLES) 100 mg capsule omeprazole (PRILOSEC) 40 mg capsule losartan (COZAAR) 25 mg tablet carvedilol (COREG) 6.25 mg tablet alendronate (FOSAMAX) 70 mg tablet atorvastatin (LIPITOR) 20 mg tablet furosemide (LASIX) 20 mg tablet amLODIPine (NORVASC) 2.5 mg tablet levothyroxine (LEVOXYL) 25 mcg tablet potassium chloride SR (MICRO-K) 10 mEq CR capsule hydrocortisone 2.5 % ointment brimonidine (ALPHAGAN P) 0.15 % ophthalmic solution timolol maleate (TIMOPTIC) 0.5 % ophthalmic solution clobetasol (TEMOVATE) 0.05 % ointment >Zippered Compression Knee High 30-40 mm custom latanoprost (XALATAN) 0.005 % ophthalmic solution clobetasol (TEMOVATE) 0.05 % ointment brimonidine-timolol (COMBIGAN) 0.2-0.5 % ophthalmic solution TRAVATAN Z 0.004 % Drop Cholecalciferol, Vitamin D3, 2,000 unit ORAL Cap calcium carbonate(CALTRATE 600 600 MG (1,500 MG) TAB) Review of Systems CONSTITUTIONAL: No fevers, chills night sweats, unintended weight loss CARDIOVASCULAR: No chest pain, dyspnea, palpitations, orthopnea, PND, ankle edema. PULM: No dyspnea, unexplained cough. GI: No dysphagia/odynophagia, problematic reflux, constipation, diarrhea, changes in stool habits, hematochezia, melena. : No new urinary complaints, including dysuria, gross hematuria or pyuria. NEURO: No new balance problems, peripheral weakness/paresthesias or numbness of concern. Physical Exam BP 90/52 (BP Site: Left Arm, BP Position: Sitting, BP Cuff Size: Regular Adult) Pulse 90 Temp 36.3 C (97.4 F) Resp 12 Ht 157.5 cm (5' 2 ) Wt 61.2 kg (135 lb) SpO2 98% BMI 24.69 kg/m General appearance: Well appearing, alert, in no acute distress, well nourished. Skin: Skin color, texture, turgor normal, no suspicious rashes or lesions Head: Normocephalic, no masses, lesions, tenderness or abnormalities Eyes: Anicteric sclera. Pupils are equally round and reactive to light. Extraocular movements are intact. Lungs: Lungs clear to auscultation. No wheezing, rhonchi, rales Heart: RRR without murmur, gallop, or rubs. Extremities: No deformities, edema, skin discoloration, clubbing or cyanosis. Good capillary refill. ASSESSMENT/PLAN: 1. Congestive heart failure, unspecified HF chronicity, unspecified heart failure type (HCC) - ICD9: 428.0, ICD10: I50.9 (primary diagnosis) - BASIC METABOLIC PNL - CBC + DIFF 2. Essential hypertension - ICD9: 401.9, ICD10: I10 See hpi for changes made 3. Mixed hyperlipidemia - ICD9: 272.2, ICD10: E78.2 - good control - Continue current medication. - ATORVASTATIN 20 MG TABLET 4. Pedal edema - ICD9: 782.3, ICD10: R60.0 - FUROSEMIDE 20 MG TABLET 5. Acute cough - ICD9: 786.2, ICD10: R05.1 To get xrs and if that does not have pneumonia, then to take steroids for treating reactive airways 6. Hypokalemia - ICD9: 276.8, ICD10: E87.6 - MAGNESIUM BLD 7. Hypothyroidism, unspecified type - ICD9: 244.9, ICD10: E03.9 - Instructed patient on importance of taking on an empty stomach either first thing in the morning or at bedtime. Stable - LEVOTHYROXINE 25 MCG TABLET - TSH BLD Татьяна Barnard MD documented in this encounterKnox [facility]10-07-2022 Miscellaneous Notes* Telephone Encounter - Haydee Mccauley Ma - 04/04/2022 1:09 PM EDT Spoke with daughter, patient currently in the ED. * Telephone Encounter - Jesusita Drake APRN.CNP - 04/04/2022 12:49 PM EDT Please let patient and daughter know that I agree this needs urgent evaluation and Dr. Barnard is in agreement with this. Her chest xray shows slight increase in fluid on lungs even with her lasix increase by cardiology, kidney function slightly worse, and potassium had improved but still a little low. We will fax chest xray and labs to cardiology as requested. Thank you Jesusita Drake APRN.CAB STARTER * Telephone Encounter - Brianne Toribio RN - 04/04/2022 10:23 AM EDT Patient's daughter calls to report that patient is urinating very little since yesterday morning. Patient is just having drops of urine. Last time normal urination occurred was yesterday upon awakening. Per nurse triage protocol recommended ED now. Jessa reports that patient has been having trouble with fluids and kidneys's and Dr. Squires has been working with patient on lasix dose. Ursulaied Jessa dc contact Tex Squires CNP but our recommendation would be ED now d/t very little urination in greater than 24 hours. Jessa verbalizes understanding. Requested labs and CXR be faxed to Dr. Squires. Faxed to Tex Squires CNP at [phone]. Brianne Toribio RN documented in this encounterKn[facility]10-[facility]-2022 Miscellaneous Notes* Telephone Encounter - Haydee Mccauley Ma - 04/02/2022 7:29 PM EDT Patient notified. * Telephone Encounter - Jesusita Drake APRN.CNP - 04/02/2022 7:19 PM EDT Please let patient and daughter know that when I saw them earlier, I had not seen this result yet and di not realize it had been completed. This was negative for C-diff. No need to repeat. Thank you Jesusita Drake APRN.CNP documented in this encounterKnox [facility]10-05-2022 History of Present illness Narrative* Jesusita Drake APRN.CNP - 04/02/2022 3:28 PM EDT CC: Patient presents with: Recheck: 2 week follow up, pneumonia HPI Reinier Stoner is a 86 year old female who presents today for follow up on cough, fatigue, diarrhea, and pneumonia post hospitalization for new onset a-fib and GI bleed at hospital. At last visit patient denied shortness of breath and edema but today feel shortness of breath may have been present intermittently. Also has had large amount of BLE edema. Saw cardiology this past Thursday and their concern was beginning of CHF. Lab work completed at hospital. Potassium 3.1 and Creatinine 1.69 GFR 31 which kidney function was slightly improved. Lasix was increased as well as potassium supplement. Also Eliquis was changed to Xeralto. Scheduled for follow-up with cardiology on the . Diarrhea resolved this past Thursday. Last episode was Thursday morning. Yesterday and today had soft partially formed brown stool. Cough is still continuing along with nausea and fatigue. Denies any fever, vomiting, or abdominal pain. There were confusion on exact doses of medications, so our record checked with cardiologies record. REVIEW OF SYSTEMS General: no fevers, no chills, no night sweats, no recurrent infections, no change in appetite, no change in energy, and no significant changes in weight Respiratory: no wheezing, no shortness of breath, no hemoptysis Cardiovascular: no chest pain, no chest pressure, and no palpitations Neurologic: No headache, weakness, numbness, tingling, neck stiffness, tremor, vertigo, dizziness, memory loss, syncope. 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, unspecified Glaucoma Hemorrhage of rectum and anus Obesity, unspecified Osteoporosis, unspecified Other and unspecified hyperlipidemia Personal history of colonic polyps 09/20/2014 Umbilical hernia 12/22/2012 Unspecified essential hypertension PAST SURGICAL HISTORY Procedure Laterality Date COLONOSCOPY FLX DX W/COLLJ SPEC WHEN PFRMD 01/09/2003 Colonoscopy w/ polypectomy COLONOSCOPY FLX DX W/COLLJ SPEC WHEN PFRMD 10/10/2014 Colonoscopy COLSC FLX W/RMVL OF TUMOR POLYP LESION SNARE TQ 10/24/08 HYSTEROSCOPY, DIAGNOSTIC (SEPARATE 08/21/1998 Hysteroscopy LIG/TRNSXJ FLP TUBE ABDL/VAG APPR UNI/BI 1976 Tubal ligation PAST SURGICAL HISTORY OF 09/27 CARDIAC CATH. PAST SURGICAL HISTORY OF 2018 Glaucoma - right eye left eye - [facility] . Dr Gao REPAIR FIRST ABDOMINAL WALL HERNIA 12/14/12 2cm defect - Parietex Composite ventral patch 6cm ALLERGIES Amantadine, Capoten [Captopril], Cephalexin, Erythromycin, Hctz [Thiazides], Ivp Dye [Iodine], and Norvasc [Amlodipine Besylate] MEDICATIONS XARELTO 15 mg tablet Take 15 mg by mouth once daily. benzonatate (TESSALON PERLES) 100 mg capsule Take 1 capsule by mouth three times daily as needed for cough. omeprazole (PRILOSEC) 40 mg capsule Take 1 capsule by mouth daily before breakfast. 1/2 hr before meal. apixaban (ELIQUIS) 2.5 mg tab(s) Take by mouth. losartan (COZAAR) 25 mg tablet Take 1 tablet by mouth once daily. carvedilol (COREG) 6.25 mg tablet Take 1 tablet by mouth twice daily with meals. alendronate (FOSAMAX) 70 mg tablet take 1 tablet by mouth every week atorvastatin (LIPITOR) 20 mg tablet Take 1 tablet by mouth every 48 hours. furosemide (LASIX) 20 mg tablet Take 40 mg 3 times a Week for swelling. amLODIPine (NORVASC) 2.5 mg tablet Take 1 tablet by mouth twice daily. levothyroxine (LEVOXYL) 25 mcg tablet Take 1 tablet by mouth once daily. Take on empty stomach. ForThyroid potassium chloride SR (MICRO-K) 10 mEq CR capsule Take 1 capsule by mouth once daily. hydrocortisone 2.5 % ointment Apply 1 application to affected area twice daily. brimonidine (ALPHAGAN P) 0.15 % ophthalmic solution Use 1 Drop in the right eye twice daily. timolol maleate (TIMOPTIC) 0.5 % ophthalmic solution Use 1 Drop in the right eye twice daily. clobetasol (TEMOVATE) 0.05 % ointment Apply 1 application to affected area twice daily. TO AFFECTEDAREA. >Zippered Compression Knee High 30-40 mm custom CUSTOM MEASURE FOR KNEE HIGH ANGELO COMPRESSION STOCKINGS, 30-40 MM, WITH ZIPPERS PLEASE. IF UNABLE, PLEASE REFER TO BALA AT [facility]. DX: EDEMA latanoprost (XALATAN) 0.005 % ophthalmic solution 1 Drop daily at bedtime. clobetasol (TEMOVATE) 0.05 % ointment Apply 1 application to affected area 3 times a WEEK. TO AFFECTED AREA. polyethylene glycol 3350 (MIRALAX, GLYCOLAX) 17 gram/dose powder Drink a mix of 1 scoop in 8oz of water/beverage once daily as needed for constipation. brimonidine-timolol (COMBIGAN) 0.2-0.5 % ophthalmic solution Use in both eyes. TRAVATAN Z 0.004 % Drop daily at bedtime. Cholecalciferol, Vitamin D3, 2,000 unit ORAL Cap Take one(1) tablet two(2) times daily. calcium carbonate(CALTRATE 600 600 MG (1,500 MG) TAB) Take one(1) tablet twice daily. FAMILY HISTORY Problem Relation Age of Onset Heart Mother Hypertension Mother Hypertension Father Heart Sister By-pass, Triple Heart Brother Stent other (Renal Stones) Daughter Glaucoma Brother Heart Maternal Aunt Social History Tobacco Use Smoking status: Former Years: 5.00 Types: Cigarettes Quit date: 07/06/1976 Years since quittin.7 Smokeless tobacco: Never Tobacco comments: Quit 1969' 4-5 cig per day Vaping Use Vaping Use: Never used Substance Use Topics Alcohol use: No Drug use: No PHYSICAL EXAM BP 122/78 Temp (!) 32.2 C (90 F) Resp 16 Wt 59.9 kg (132 lb) SpO2 99% BMI 24.14 kg/m General Appearance: well appearing, in no acute distress, alert Skin: Skin color, texture, turgor normal for age; Eyes: conjunctiva pink and moist, no icterus, sclera white, non-injected Lungs:No wheezing or rhonchi noted. Faint crackles to posterior LLL Heart: Apical irregular No gallop, or rubs. No ectopy BLE Extremities: No deformities, skin discoloration, clubbing or cyanosis. 2+ edema to BLE. No tenderness. Health maintenance reviewed with patient: SHINGRIX VACCINE(1 of 2) Never done ADVANCE DIRECTIVE DISCUSSION Never done DEPRESSION ASSESSMENT Never done COVID-19 VACCINE(4 - Booster for Moderna series) due on 07/22/2021 INFLUENZA(1) due on 02/27/2022 DTAP,TDAP,TD(3 - Td or Tdap) due on 06/07/2023 DIABETES SCREEN due on 03/20/2025 BONE DENSITY Completed PNEUMOCOCCAL: 65+ Completed DATA REVIEWED: Outside chart from [facility] reviewed. ASSESSMENT/PLAN: 1. Acute cough - ICD9: 786.2, ICD10: R05.1 (primary diagnosis) - check for increased fluid. - Patient with multiple new diagnoses and issues along with medication changes over the last 2 months. Very concerned for her kidney function with all these medication changes - will have her follow up with Dr. Barnard next week - XR CHEST 2V FRONTAL/LAT 2. Hypokalemia - ICD9: 276.8, ICD10: E87.6 - med changes on Thursday for 3.1 but lasix also increased at the same time - will recheck on for improvement. - BASIC METABOLIC PNL 3. Shortness of breath - ICD9: 786.05, ICD10: R06.02 - XR CHEST 2V FRONTAL/LAT 4. Nausea - ICD9: 787.02, ICD10: R11.0 Zofran as prescribed. 5. Edema of both lower extremities - ICD9: 782.3, ICD10: R60.0 - per patient is improving with the increased lasix. Prescription instructions reviewed with patient as applicable. Potential red flag symptoms discussed with the patient. Reviewed appropriate action plan to take if red flag symptoms occur. Patient agreeable to treatment plan. Jesusita Drake APRN.CNP documented in this encounterKn[facility]10-03-2022 Miscellaneous Notes* Telephone Encounter - Jesusita Drake APRN.CNP - 03/31/2022 7:24 AM EDT Reviewed in appointment today. Jesusita Drake APRN.CNP * Telephone Encounter - Abimbola Abbott LPN - 03/28/2022 4:34 PM EDT Patient daughter Verona Ragland returned call and went over notes from Jesusita Drake PAINT STOCKMAN with understanding. Daughter said mother told her she was having loose stools. She was trying to have her drink some Pedilyte but mother likes water. Daughter said Tex Squires - [facility] told her this morning that he sent order for lab work over and mentioned having chest xray done. * Telephone Encounter - Haydee Mccauley Ma - 03/28/2022 4:22 PM EDT Left message on detailed VM. * Telephone Encounter - Jesusita Drake APRN.CNP - 03/28/2022 3:39 PM EDT I can put in the order for Cdiff. Is she continuing with diarrhea? Also, I can send in a new prescription for the benzonatate but with the increase in Lasix, if this is from fluid overload this hopefully will improve this as well. Thank you Jesusita Drake APRN.CNP * Telephone Encounter - Yolette Pérez RN - 03/28/2022 1:32 PM EDT Patient's daughter Jessa calls and states patient had see phone technician Tex Squires. Tex has some concerns that patient is getting CHF. Tex increased patient's lasix dose to 40 mg three times a week and increased patient's potassium dose to 40 meq on those days. On other days patient is taking 20 meq of Potassium.Tex squires is concerned that with the diarrhea patient has been having that patient will become dehydrated. Daughter asking if provider wants to put in orders to check for C- diff since patient has been on antibiotics. Daughter rescheduled appointment on next Thursday to a sooner appointment on Thursday. Patient continues to have a cough. Jessa asking if provider can send in new prescription for benzonateor increase the dose? Please review and advise, Yolette Pérez RN documented in this encounterKnox [facility] Hospital09-23-2022 Miscellaneous Notes* Telephone Encounter - Haydee Mccauley Ma - 03/21/2022 3:51 PM EDT Patient notified, appointment scheduled. * Telephone Encounter - Jesusita Drake APRN.DARSHAN - 03/21/2022 3:38 PM EDT Please let patient know this has been ordered and sent to [facility]. I would like her to follow up in 2 weeks. Let her know for any shortness of breath, chest pain, or any other urgent concerns she needs to go to ER. Thank you Jesusita Drake APRN.DARSHAN * Telephone Encounter - Cheryl George RN - 03/21/2022 3:12 PM EDT Pt called and is notified of providers results and instructions. Pt voices understanding. Pt statesshe doesn't have an allergy to penicillin that she knows of. Pt would like antibiotics sent to [facility] in [place]. Cheryl George RN * Telephone Encounter - Jesusita Drake APRN.CNP - 03/21/2022 12:17 PM EDT Please let patient know she is negative for COVID, and her blood counts have continued to improve. Her chest xray does show developing pneumonia. I am ordering 2 different antibiotics for this, augmentin and doxycyline. Has she ever had any allergic reaction to penicillin based antibiotics? Thank you Jesusita Drake APRN.CNP documented in this encounterKnox [facility] Hospital09-22-2022 History of Present illness Narrative* Jesusita Drake APRN.CNP - 03/20/2022 2:48 PM EDT CC: Patient presents with: Recheck: Follow up, cough, weak, bowel issues HPI Reinier Stoner is an 86 year old female who presents today for diarrhea for the past 3-4 days along with many other complaints. Was started on eliquis the 23 of February and feels all of the issueshave been occurring since then. Had gone to ER for dizziness and was found to be in A-fib so was admitted. Per patient the only new medication in Hospital was eliquis. Had a colonoscopy and EGD during hospitalization for blood in stools which were normal. Sees GI for follow up in March. Was having low blood pressures at her hospital follow up with Dr. Barnard 10 days ago and blood pressure medications were decreased. HTN: Ms. Stoner indicates that she is feeling well and denies any symptoms referable to elevated blood pressure. Specifically denies headache, chest pain, palpitations, dyspnea, and peripheral edema. Patient denies any side effects of her medication(s) and is compliant with their regimen. She does check BP's away from this office with average BP's in the [id number] range. . Last 3 Encounter BP Readings: Date: BP: 03/20/2022 112/70 03/10/2022 92/58 02/21/2022 92/50 Current complaints are nausea, fatigue, persistent cough, and diarrhea. Was having liquid stools 3-9 times a day for the past 4 days resulting in some incontinence. Statesthe stools were liquid with small amount of chunks and yellow in color. Denies any foul smell, andres blood, or mucous in her liquid stools. Has not had a bowel movement today so hoping this has stopped. Also reports nausea for the past 3 weeks. Denies any vomiting, abdominal pain, heartburn, difficulty swallowing. Has also had a large amount of fatigue for the past few weeks as well. This was thought at last visit to be due to her low blood pressure, but has not improved with the medication changes. Denies anypain or difficulty urinating or change in urination. Has also had a nonproductive cough for the past 1.5 weeks. Denies any wheezing, shortness of breath, sinus drainage, sinus congestion, fever, or headaches. REVIEW OF SYSTEMS General: no fevers, no chills, no night sweats, no recurrent infections, no change in appetite, andno significant changes in weight Respiratory: no wheezing, no shortness of breath, no hemoptysis Cardiovascular: no chest pain, no chest pressure, no palpitations, and no swelling GI: See HPI : See HPI Neurologic: No headache, dizziness, syncope. 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, unspecified Glaucoma Hemorrhage of rectum and anus Obesity, unspecified Osteoporosis, unspecified Other and unspecified hyperlipidemia Personal history of colonic polyps 09/20/2014 Umbilical hernia 12/22/2012 Unspecified essential hypertension PAST SURGICAL HISTORY Procedure Laterality Date COLONOSCOPY FLX DX W/COLLJ SPEC WHEN PFRMD 01/09/2003 Colonoscopy w/ polypectomy COLONOSCOPY FLX DX W/COLLJ SPEC WHEN PFRMD 10/10/2014 Colonoscopy COLSC FLX W/RMVL OF TUMOR POLYP LESION SNARE TQ 10/24/08 HYSTEROSCOPY, DIAGNOSTIC (SEPARATE 08/21/1998 Hysteroscopy LIG/TRNSXJ FLP TUBE ABDL/VAG APPR UNI/BI 1975 Tubal ligation PAST SURGICAL HISTORY OF 09/27 CARDIAC CATH. PAST SURGICAL HISTORY OF 05/2012, 2018 Glaucoma - right eye left eye - [facility] . Dr Gao REPAIR FIRST ABDOMINAL WALL HERNIA 12/14/12 2cm defect - Parietex Composite ventral patch 6cm ALLERGIES Amantadine, Capoten [Captopril], Cephalexin, Erythromycin, Hctz [Thiazides], Ivp Dye [Iodine], and Norvasc [Amlodipine Besylate] MEDICATIONS omeprazole (PRILOSEC) 40 mg capsule Take 1 capsule by mouth daily before breakfast. 1/2 hr before meal. apixaban (ELIQUIS) 2.5 mg tab(s) Take by mouth. losartan (COZAAR) 25 mg tablet Take 1 tablet by mouth once daily. carvedilol (COREG) 6.25 mg tablet Take 1 tablet by mouth twice daily with meals. alendronate (FOSAMAX) 70 mg tablet take 1 tablet by mouth every week atorvastatin (LIPITOR) 20 mg tablet Take 1 tablet by mouth every 48 hours. furosemide (LASIX) 20 mg tablet Take 40 mg 3 times a Week for swelling. amLODIPine (NORVASC) 2.5 mg tablet Take 1 tablet by mouth twice daily. levothyroxine (LEVOXYL) 25 mcg tablet Take 1 tablet by mouth once daily. Take on empty stomach. ForThyroid potassium chloride SR (MICRO-K) 10 mEq CR capsule Take 1 capsule by mouth once daily. hydrocortisone 2.5 % ointment Apply 1 application to affected area twice daily. brimonidine (ALPHAGAN P) 0.15 % ophthalmic solution Use 1 Drop in the right eye twice daily. timolol maleate (TIMOPTIC) 0.5 % ophthalmic solution Use 1 Drop in the right eye twice daily. clobetasol (TEMOVATE) 0.05 % ointment Apply 1 application to affected area twice daily. TO AFFECTEDAREA. >Zippered Compression Knee High 30-40 mm custom CUSTOM MEASURE FOR KNEE HIGH ANGELO COMPRESSION STOCKINGS, 30-40 MM, WITH ZIPPERS PLEASE. IF UNABLE, PLEASE REFER TO BALA AT [facility]. DX: EDEMA latanoprost (XALATAN) 0.005 % ophthalmic solution 1 Drop daily at bedtime. clobetasol (TEMOVATE) 0.05 % ointment Apply 1 application to affected area 3 times a WEEK. TO AFFECTED AREA. polyethylene glycol 3350 (MIRALAX, GLYCOLAX) 17 gram/dose powder Drink a mix of 1 scoop in 8oz of water/beverage once daily as needed for constipation. brimonidine-timolol (COMBIGAN) 0.2-0.5 % ophthalmic solution Use in both eyes. TRAVATAN Z 0.004 % Drop daily at bedtime. Cholecalciferol, Vitamin D3, 2,000 unit ORAL Cap Take one(1) tablet two(2) times daily. calcium carbonate(CALTRATE 600 600 MG (1,500 MG) TAB) Take one(1) tablet twice daily. FAMILY HISTORY Problem Relation Age of Onset Heart Mother Hypertension Mother Hypertension Father Heart Sister By-pass, Triple Heart Brother Stent other (Renal Stones) Daughter Glaucoma Brother Heart Maternal Aunt Social History Tobacco Use Smoking status: Former Years: 5.00 Types: Cigarettes Quit date: 07/06/1976 Years since quittin.7 Smokeless tobacco: Never Tobacco comments: Quit 4-5 cig per day Vaping Use Vaping Use: Never used Substance Use Topics Alcohol use: No Drug use: No PHYSICAL EXAM BP 112/70 Pulse 68 Resp 16 Wt 60.3 kg (133 lb) BMI 24.33 kg/m General Appearance: well appearing, in no acute distress, alert Skin: Skin color, texture, turgor normal for age; Eyes: conjunctiva pink and moist, no icterus, sclera white, non-injected Neck: Thyroid normal size and symmetric without palpable nodules, No adenopathy Lymph nodes: No cervical lymphadenopathy and No supraclavicular lymphadenopathy Lungs: Lungs clear to auscultation. No wheezing, rhonchi, rales. Heart: RRR without murmur, gallop, or rubs. No ectopy Abdomen: Abdomen soft, non-tender. Bowel sounds normal. No masses, organomegaly BUE Extremities: No deformities, edema, skin discoloration, clubbing or cyanosis. Good capillary refill. Health maintenance reviewed with patient: SHINGRIX VACCINE(1 of 2) Never done ADVANCE DIRECTIVE DISCUSSION Never done COVID-19 VACCINE(4 - Booster for Moderna series) due on 07/22/2021 INFLUENZA(1) due on 02/27/2022 DTAP,TDAP,TD(3 - Td or Tdap) due on 06/07/2023 DIABETES SCREEN due on 01/08/2025 BONE DENSITY Completed PNEUMOCOCCAL: 65+ Completed DATA REVIEWED: Most recent labs ASSESSMENT/PLAN: 1. Acute cough - ICD9: 786.2, ICD10: R05.1 (primary diagnosis) - discussed probable cause of either post nasal drip or possible reflux. Will check for other causes - tessalon as ordered - XR CHEST 2V FRONTAL/LAT - COVID WITH FLUA+B, ROUTINE - follow up depending on results. 2. Nausea - ICD9: 787.02, ICD10: R11.0 - probable cause of eliquis will need to evaluate what other options are available for her as long as she isn't found to have any abnormal blood loss in CBC - COVID WITH FLUA+B, ROUTINE 3. Diarrhea, unspecified type - ICD9: 787.91, ICD10: R19.7 - improving. Will have cdiff available if patient starts to have diarrhea again - C. DIFFICILE PCR - CBC + DIFF - COMP METABOLIC PANEL - COVID WITH FLUA+B, ROUTINE 4. Fatigue, unspecified type - ICD9: 780.79, ICD10: R53.83 - main concern is if her hgb has continued to drop. - XR CHEST 2V FRONTAL/LAT - C. DIFFICILE PCR - CBC + DIFF - COMP METABOLIC PANEL - COVID WITH FLUA+B, ROUTINE 5. Anemia, unspecified type - ICD9: 285.9, ICD10: D64.9 As above - CBC + DIFF Prescription instructions reviewed with patient as applicable. Potential red flag symptoms discussed with the patient. Reviewed appropriate action plan to take if red flag symptoms occur. Patient agreeable to treatment plan. Jesusita Drake APRN.CNP documented in this encounterKnox [facility] Hospital09-16-2022 Miscellaneous Notes* Telephone Encounter - Shanita West LPN - 03/14/2022 3:28 PM EDT Last appt with pcp 03/10/22 * Telephone Encounter - Alessio Betancourt Pss - 03/14/2022 2:00 PM EDT Patient has been identified by name and date of : Yes Requested Prescriptions Pending Prescriptions Disp Refills omeprazole (PRILOSEC) 40 mg capsule 90 capsule 3 Sig: Take 1 capsule by mouth daily before breakfast. 1/2 hr before meal. RX INSTRUCTIONS: Patient aware RX will be sent to pharmacy. No need to notify patient. Alessio Betancourt Pss documented in this encounterKnox [facility] Hospital09-12-2022 History of Present illness Narrative* Татьяна Barnard MD - 03/10/2022 4:24 PM EDT Reason for Visit Patient presents with: Hospital F/U Reinier Stoner is a 86 year old female who presents here today for Above Complaints.. Health Maintenance SHINGRIX VACCINE(1 of 2) ADVANCE DIRECTIVE DISCUSSION COVID-19 VACCINE(4 - Booster for Moderna series) INFLUENZA(1) HPI. Here with her brother . Admitted to hospital for episode of dizziness , found out that she has afib, put on eliquis. She has been tired ever since, and he bp is low. In the hospital she was also found to be anemic We are cutting her bp medication down to half of the her dose of losartan and coreg. Will see her in 2 weeks again No problem-specific Assessment & Plan notes found for this encounter. 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, unspecified Glaucoma Hemorrhage of rectum and anus Obesity, unspecified Osteoporosis, unspecified Other and unspecified hyperlipidemia Personal history of colonic polyps 09/20/2014 Umbilical hernia 12/22/2012 Unspecified essential hypertension PAST SURGICAL HISTORY Procedure Laterality Date COLONOSCOPY FLX DX W/COLLJ SPEC WHEN PFRMD 01/09/2003 Colonoscopy w/ polypectomy COLONOSCOPY FLX DX W/COLLJ SPEC WHEN PFRMD 10/10/2014 Colonoscopy COLSC FLX W/RMVL OF TUMOR POLYP LESION SNARE TQ 10/24/08 HYSTEROSCOPY, DIAGNOSTIC (SEPARATE 08/21/1998 Hysteroscopy LIG/TRNSXJ FLP TUBE ABDL/VAG APPR UNI/BI 1975 Tubal ligation PAST SURGICAL HISTORY OF 09/27 CARDIAC CATH. PAST SURGICAL HISTORY OF 05/2012, 2019 Glaucoma - May. right eye left eye - [facility] . Dr Gao REPAIR FIRST ABDOMINAL WALL HERNIA 12/14/12 2cm defect - Parietex Composite ventral patch 6cm FAMILY HISTORY Problem Relation Age of Onset Heart Mother Hypertension Mother Hypertension Father Heart Sister By-pass, Triple Heart Brother Stent other (Renal Stones) Daughter Glaucoma Brother Heart Maternal Aunt Social History Tobacco Use Smoking status: Former Years: 5.00 Types: Cigarettes Quit date: 07/06/1976 Years since quittin.7 Smokeless tobacco: Never Tobacco comments: Quit 1969's 4-5 cig per day Vaping Use Vaping Use: Never used Substance Use Topics Alcohol use: No Drug use: No Past medical history, appointments, medications, allergies reviewed. Pertinent Lab/Diagnostic Studies are reviewed and discussed today Current Outpatient Medications: apixaban (ELIQUIS) 2.5 mg tab(s) alendronate (FOSAMAX) 70 mg tablet losartan (COZAAR) 100 mg tablet atorvastatin (LIPITOR) 20 mg tablet carvedilol (COREG) 12.5 mg tablet furosemide (LASIX) 20 mg tablet amLODIPine (NORVASC) 2.5 mg tablet levothyroxine (LEVOXYL) 25 mcg tablet potassium chloride SR (MICRO-K) 10 mEq CR capsule omeprazole (PRILOSEC) 40 mg capsule hydrocortisone 2.5 % ointment brimonidine (ALPHAGAN P) 0.15 % ophthalmic solution timolol maleate (TIMOPTIC) 0.5 % ophthalmic solution clobetasol (TEMOVATE) 0.05 % ointment >Zippered Compression Knee High 30-40 mm custom latanoprost (XALATAN) 0.005 % ophthalmic solution clobetasol (TEMOVATE) 0.05 % ointment polyethylene glycol 3350 (MIRALAX, GLYCOLAX) 17 gram/dose powder brimonidine-timolol (COMBIGAN) 0.2-0.5 % ophthalmic solution TRAVATAN Z 0.004 % Drop Cholecalciferol, Vitamin D3, 2,000 unit ORAL Cap calcium carbonate(CALTRATE 600 600 MG (1,500 MG) TAB) aspirin(ASPIR-81 81 MG TAB) Review of Systems CONSTITUTIONAL: No fevers, chills night sweats, unintended weight loss CARDIOVASCULAR: No chest pain, dyspnea, palpitations, orthopnea, PND, ankle edema. PULM: No dyspnea, unexplained cough. GI: No dysphagia/odynophagia, problematic reflux, constipation, diarrhea, changes in stool habits, hematochezia, melena. : No new urinary complaints, including dysuria, gross hematuria or pyuria. NEURO: No new balance problems, peripheral weakness/paresthesias or numbness of concern. Physical Exam BP 92/58 Pulse 74 Resp 14 Wt 60.3 kg (133 lb) SpO2 99% BMI 24.33 kg/m General appearance: Well appearing, alert, in no acute distress, well nourished. Skin: Skin color, texture, turgor normal, no suspicious rashes or lesions Head: Normocephalic, no masses, lesions, tenderness or abnormalities Eyes: Anicteric sclera. Pupils are equally round and reactive to light. Extraocular movements are intact. Lungs: Lungs clear to auscultation. No wheezing, rhonchi, rales Heart: RRR without murmur, gallop, or rubs. ASSESSMENT/PLAN: 1. Essential hypertension - ICD9: 401.9, ICD10: I10 (primary diagnosis) - good control - Recommended regular aerobic exercise. - Recommend home blood pressure monitoring, to bring results in on next visit - Goal of BP <130/80 2. Hypothyroidism, unspecified type - ICD9: 244.9, ICD10: E03.9 - Instructed patient on importance of taking on an empty stomach either first thing in the morning or at bedtime. Weight increasing - Behavioral intervention - TSH BLD 3. Persistent atrial fibrillation (HCC) - ICD9: 427.31, ICD10: I48.19 4. Other fatigue - ICD9: 780.79, ICD10: R53.83 - TSH BLD - CBC + DIFF Татьяна Barnard MD [facility] History of Present illness Narrative* Татьяна Barnard MD - 02/21/2022 2:36 PM EDT Reason for Visit Patient presents with: Same Day Appointment: low blood pressure, weak, chest pressure yesterday Reinier Stoner is a 86 year old female who presents here today for Above Complaints.. Health Maintenance SHINGRIX VACCINE(1 of 2) ADVANCE DIRECTIVE DISCUSSION COVID-19 VACCINE(4 - Booster for Moderna series) HPI Here for acute visit , not feeling well today. Yesterday she was not feeling well, she had chest pain, for the whole evening.. prior to yesterday she was completely fine. After sleeping last night she got up felt fine. She had a large bowel movement, following with she was sweating a lot. She is being investigated for anemia, due to occult blood she has a apt with the GI coming. she had a bowel movement and then she had severe sweating. Had 2 bowel movements, each time profuse sweating was noted. Here her blood pressure today is very very low. She is pale. No problem-specific Assessment & Plan notes found for this encounter. 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, unspecified Glaucoma Hemorrhage of rectum and anus Obesity, unspecified Osteoporosis, unspecified Other and unspecified hyperlipidemia Personal history of colonic polyps 09/20/2014 Umbilical hernia 12/22/2012 Unspecified essential hypertension PAST SURGICAL HISTORY Procedure Laterality Date COLONOSCOPY FLX DX W/COLLJ SPEC WHEN PFRMD 01/09/2003 Colonoscopy w/ polypectomy COLONOSCOPY FLX DX W/COLLJ SPEC WHEN PFRMD 10/10/2014 Colonoscopy COLSC FLX W/RMVL OF TUMOR POLYP LESION SNARE TQ 10/24/08 HYSTEROSCOPY, DIAGNOSTIC (SEPARATE 08/21/1998 Hysteroscopy LIG/TRNSXJ FLP TUBE ABDL/VAG APPR UNI/BI 1975 Tubal ligation PAST SURGICAL HISTORY OF 09/27 CARDIAC CATH. PAST SURGICAL HISTORY OF 05/2012, 2018 Glaucoma - May. right eye left eye - [facility] . Dr Gao REPAIR FIRST ABDOMINAL WALL HERNIA 12/14/12 2cm defect - Parietex Composite ventral patch 6cm FAMILY HISTORY Problem Relation Age of Onset Heart Mother Hypertension Mother Hypertension Father Heart Sister By-pass, Triple Heart Brother Stent other (Renal Stones) Daughter Glaucoma Brother Heart Maternal Aunt Social History Tobacco Use Smoking status: Former Years: 5.00 Types: Cigarettes Quit date: 07/06/1976 Years since quittin.6 Smokeless tobacco: Never Tobacco comments: Quit 1969's 4-5 cig per day Vaping Use Vaping Use: Never used Substance Use Topics Alcohol use: No Drug use: No Past medical history, appointments, medications, allergies reviewed. Pertinent Lab/Diagnostic Studies are reviewed and discussed today Current Outpatient Medications: alendronate (FOSAMAX) 70 mg tablet losartan (COZAAR) 100 mg tablet atorvastatin (LIPITOR) 20 mg tablet carvedilol (COREG) 12.5 mg tablet furosemide (LASIX) 20 mg tablet amLODIPine (NORVASC) 2.5 mg tablet levothyroxine (LEVOXYL) 25 mcg tablet potassium chloride SR (MICRO-K) 10 mEq CR capsule omeprazole (PRILOSEC) 40 mg capsule hydrocortisone 2.5 % ointment brimonidine (ALPHAGAN P) 0.15 % ophthalmic solution timolol maleate (TIMOPTIC) 0.5 % ophthalmic solution clobetasol (TEMOVATE) 0.05 % ointment >Zippered Compression Knee High 30-40 mm custom latanoprost (XALATAN) 0.005 % ophthalmic solution clobetasol (TEMOVATE) 0.05 % ointment polyethylene glycol 3350 (MIRALAX, GLYCOLAX) 17 gram/dose powder Brimonidine-Timolol (COMBIGAN) 0.2-0.5 % drop TRAVATAN Z 0.004 % Drop Cholecalciferol, Vitamin D3, 2,000 unit ORAL Cap aspirin(ASPIR-81 81 MG TAB) calcium carbonate(CALTRATE 600 600 MG (1,500 MG) TAB) Review of Systems CONSTITUTIONAL: No fevers, chills night sweats, unintended weight loss CARDIOVASCULAR: No chest pain, dyspnea, palpitations, orthopnea, PND, ankle edema. PULM: No dyspnea, unexplained cough. GI: No dysphagia/odynophagia, problematic reflux, constipation, diarrhea, changes in stool habits, hematochezia, melena. : No new urinary complaints, including dysuria, gross hematuria or pyuria. NEURO: No new balance problems, peripheral weakness/paresthesias or numbness of concern. Physical Exam Pulse 60 Temp (!) 35.8 C (96.4 F) Resp 12 Ht 157.5 cm (5' 2 ) Wt 57.2 kg (126 lb) SpO2 99% BMI 23.05 kg/m General appearance: Well appearing, alert, in no acute distress, well nourished. Skin: Skin color, texture, turgor normal, no suspicious rashes or lesions Head: Normocephalic, no masses, lesions, tenderness or abnormalities Eyes: Anicteric sclera. Pupils are equally round and reactive to light. Extraocular movements are intact. Lungs: Lungs clear to auscultation. No wheezing, rhonchi, rales Heart: RRR without murmur, gallop, or rubs. Extremities: No deformities, edema, skin discoloration, clubbing or cyanosis. Good capillary refill. ASSESSMENT/PLAN: 1. Sweating profusely - ICD9: 780.8, ICD10: R61 (primary diagnosis) She is sweating profusely. 2. Essential hypertension - ICD9: 401.9, ICD10: I10 Her blood pressure is very very low today We called the ER and asked her to get evaluated there 3. Hypotension, unspecified hypotension type - ICD9: 458.9, ICD10: I95.9 4. Chest pain, unspecified type - ICD9: 786.50, ICD10: R07.9 5. Diarrhea, unspecified type - ICD9: 787.91, ICD10: R19.7 Some sweating. Татьяна Barnard MD documented [facility]Kn[facility]08-[facility]22 Miscellaneous Notes* Telephone Encounter - Richie Talamantes - 02/13/2022 11:34 AM EDT 2 nd failed attempt left message stating we CAN schedule her in general surgery Richie Fernandes * Telephone Encounter - Richie Talamantes - 01/24/2022 11:26 AM EDT Referral states needs to see General Surgery for positive IFOBT. Tried to contact patient to schedule no answer, left message to return my call. Message stated Patient calling, states that she needs a referral for gastro. States that General Surgery will not see her. Please advise. Not sure who patient spoke with, General Surgery in [place] will see patient. left patient message to call and schedule. Gave direct number [phone]. Richie Fernandes documented in this encounterKn[facility]07-30-2022 Miscellaneous Notes* Telephone Encounter - Alessio Head - 01/25/2022 12:08 PM EDT T/c to pt, she stated that she was not interested in scheduling at this time. She is following up with a kidney doctor and GI specialist at the [facility]. Thank you, Alessio Head * Telephone Encounter - Olga Juarez LPN - 01/09/2022 10:37 AM EDT Left message to return call to schedule. * Telephone Encounter - Татьяна Barnard MD - 01/08/2022 11:33 PM EDT Please set reinier up to see us in the next couple weeks for her results Regards, Татьяна Barnard MD documented in this encounterKn[facility]07-23-2022 Miscellaneous Notes* Telephone Encounter - Yolette Caban - 01/18/2022 12:45 PM EDT Spoke with patient and she does not want to see a animal cop outside of [place]. Patient will call [facility] to schedule locally. Yolette Caban * Telephone Encounter - Toshia Drake APRN.CNP - 01/17/2022 3:34 PM EDT Please let me know if unable to get an appointment soon with gastro Toshia Drake APRN.CNP * Telephone Encounter - Luciana Galarza LPN - 01/17/2022 3:29 PM EDT Patient calling, states that she needs a referral for gastro. States that General Surgery will not see her. Please advise. * Telephone Encounter - Sebastien Smith RN - 01/15/2022 5:00 PM EDT Patient reports she tried to schedule appt with general surgery at [facility], but they would not let her schedule, telling her it sounds like she needs to see gastro? Advised her to call pcp. Please advisepatient. * Telephone Encounter - Cheryl George RN - 01/15/2022 1:02 PM EDT Called and left a detailed voicemail notifying patient of providers message. Hospital phone number was for Pt to call back and schedule appointment with general surgeon. Cheryl George RN * Telephone Encounter - Toshia Drake APRN.CNP - 01/15/2022 9:42 AM EDT Stool test was positive for hidden blood. Recommend referral to general surgery for further recommendations due to anemia and positive occult blood test. Toshia Drake APRN.CNP documented in this encounterKn[facility]07-21-2022 Miscellaneous Notes* Telephone Encounter - Kayla Grace APRN.CNP - 01/16/2022 12:38 PM EDT Vitamin D level ordered to be drawn with next lab draw. Kayla Grace APRN.CNP * Telephone Encounter - Claire Estes RN - 01/16/2022 10:28 AM EDT Refill request received from pharmacy. Patient last seen in the office on 10/29/21. Claire Estes RN documented in this encounterKn[facility]06-29-2022 Miscellaneous Notes* Telephone Encounter - Yany Garza Cma - 12/25/2021 2:44 PM EDT Patient notified and verbalized understanding Yany Garza Cma * Telephone Encounter - Jesusita Drake APRN.CNP - 12/25/2021 2:14 PM EDT Please let patient know that kidney function has decreased. She needs to drink plenty of water, avoid ibuprofen, advil, aleve, or any other over the counter anti-inflammatories. We will recheck in 2 weeks. 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, unspecified Glaucoma Hemorrhage of rectum and anus Obesity, unspecified Osteoporosis, unspecified Other and unspecified hyperlipidemia Personal history of colonic polyps 09/20/2014 Umbilical hernia 12/22/2012 Unspecified essential hypertension PAST SURGICAL HISTORY Procedure Laterality Date COLONOSCOPY FLX DX W/COLLJ SPEC WHEN PFRMD 01/09/2003 Colonoscopy w/ polypectomy COLONOSCOPY FLX DX W/COLLJ SPEC WHEN PFRMD 10/10/2014 Colonoscopy COLSC FLX W/RMVL OF TUMOR POLYP LESION SNARE TQ 10/24/08 HYSTEROSCOPY, DIAGNOSTIC (SEPARATE 08/21/1998 Hysteroscopy LIG/TRNSXJ FLP TUBE ABDL/VAG APPR UNI/BI 1976 Tubal ligation PAST SURGICAL HISTORY OF 09/27 CARDIAC CATH. PAST SURGICAL HISTORY OF 05/2012, 2019 Glaucoma - May. right eye Jun. left eye - [facility] . Dr Gao REPAIR FIRST ABDOMINAL WALL HERNIA 12/14/12 2cm defect - Parietex Composite ventral patch 6cm Amantadine, Capoten [Captopril], Cephalexin, Erythromycin, Hctz [Thiazides], Ivp Dye [Iodine], and Norvasc [Amlodipine Besylate] Medications reviewed: Yes FAMILY HISTORY Problem Relation Age of Onset Heart Mother Hypertension Mother Hypertension Father Heart Sister By-pass, Triple Heart Brother Stent other (Renal Stones) Daughter Glaucoma Brother Heart Maternal Aunt SOCIAL HISTORY: Social History Tobacco Use Smoking status: Former Smoker Years: 5.00 Quit date: 07/06/1976 Years since quittin.4 Smokeless tobacco: Never Used Tobacco comment: Quit 1969' 4-5 cig per day Vaping Use Vaping Use: Never used Substance Use Topics Alcohol use: No Drug use: No Reinier denies regular aerobic exercise. She watches her diet for sodium, low fat and low cholesterolmost of the time. Patient does her own pill box. List of current specialists seen: End of Live Planning discussed including patients advanced directive wishes: Yes I am willing to follow Reinier's advanced directives. PHQ-2 / Depression screen She in the past two weeks denies having felt down, depressed, hopeless or with little interest or pleasure in doing things. Functional Ability/Safety Screen 1. Was the patient's timed Up and Go test unsteady or longer than 30 seconds? No 2. Does the patient need help with the phone, transportation, shopping,preparing meals, housework, laundry, medications or managing money? No 3. Does your home have rugs in the hallway, lack of grab bars in the bathroom, lack of handrails onthe stairs or have poor lighting? No Patient is paying for food, clothes, upkeep, pays for rent, electric and gas. PHYSICAL EXAM BP 128/62 Pulse (!) 56 Resp 16 Ht 159 cm (5' 2.6 ) Wt 60.8 kg (134 lb) BMI 24.04 kg/m Alert and oriented X 3: YES Body mass index is 24.04 kg/m . Visual acuity: ASSESSMENT/PLAN: 86 year old female The following prevention plan was discussed during the office visit and provided to the patient: - Glaucoma screening - Lipid panel Татьяна Barnard MD Reason for Visit Patient presents with: Medicare Wellness Exam Reinier Stoner is a 86 year old female who presents here today for Above Complaints.. Health Maintenance SHINGRIX VACCINE(1 of 2) ADVANCE DIRECTIVE DISCUSSION COVID-19 VACCINE(4 - Booster for Moderna series) HPI Very sad right now as has not been doing well for a while. 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 It flares up once in a while. Had weaned off gabapentin as it did not seem to help. She did not pursue Physical Therapy as offered to her because she did not feel she needed it. Patient followed up with Dr Frey, he did not change anything. He had a heart monitor put for 2days and there was no concern there. Patient also had arteries in her neck done.There was no plugging there. Hypothyroidism. She is doing well on her current dose of Synthroid. Denies fatigue, cold intolerance and swelling in feet.TSH recently checked and normal. HTN: Compliant with medications. Denies any chest pain, palpitations, or edema. No SOB. Doesn't check BP at home generally. Careful with diet to avoid salt, trying to eat more fruits and vegetables, exercises regularly. HPL: Reviewed test results with patient , takes medications regularly , does not report side effects. Conscious to avoid red meats, full fat dairy and its by products. Exercising 3 to 5 times a week. No problem-specific Assessment & Plan notes found for this encounter. 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, unspecified Glaucoma Hemorrhage of rectum and anus Obesity, unspecified Osteoporosis, unspecified Other and unspecified hyperlipidemia Personal history of colonic polyps 09/20/2014 Umbilical hernia 12/22/2012 Unspecified essential hypertension PAST SURGICAL HISTORY Procedure Laterality Date COLONOSCOPY FLX DX W/COLLJ SPEC WHEN PFRMD 01/09/2003 Colonoscopy w/ polypectomy COLONOSCOPY FLX DX W/COLLJ SPEC WHEN PFRMD 10/10/2014 Colonoscopy COLSC FLX W/RMVL OF TUMOR POLYP LESION SNARE TQ 10/24/08 HYSTEROSCOPY, DIAGNOSTIC (SEPARATE 08/21/1998 Hysteroscopy LIG/TRNSXJ FLP TUBE ABDL/VAG APPR UNI/BI 1975 Tubal ligation PAST SURGICAL HISTORY OF 09/27 CARDIAC CATH. PAST SURGICAL HISTORY OF 05/2012, 2019 Glaucoma - May. right eye Jun. left eye - [facility] . Dr Gao REPAIR FIRST ABDOMINAL WALL HERNIA 12/14/12 2cm defect - Parietex Composite ventral patch 6cm FAMILY HISTORY Problem Relation Age of Onset Heart Mother Hypertension Mother Hypertension Father Heart Sister By-pass, Triple Heart Brother Stent other (Renal Stones) Daughter Glaucoma Brother Heart Maternal Aunt Social History Tobacco Use Smoking status: Former Smoker Years: 5.00 Quit date: 07/06/1976 Years since quittin.4 Smokeless tobacco: Never Used Tobacco comment: Quit 1969' 4-5 cig per day Vaping Use Vaping Use: Never used Substance Use Topics Alcohol use: No Drug use: No Past medical history, appointments, medications, allergies reviewed. Pertinent Lab/Diagnostic Studies are reviewed and discussed today Current Outpatient Medications: losartan (COZAAR) 100 mg tablet atorvastatin (LIPITOR) 20 mg tablet carvedilol (COREG) 12.5 mg tablet furosemide (LASIX) 20 mg tablet amLODIPine (NORVASC) 2.5 mg tablet levothyroxine (LEVOXYL) 25 mcg tablet potassium chloride SR (MICRO-K) 10 mEq CR capsule omeprazole (PRILOSEC) 40 mg capsule alendronate (FOSAMAX) 70 mg tablet hydrocortisone 2.5 % ointment brimonidine (ALPHAGAN P) 0.15 % ophthalmic solution timolol maleate (TIMOPTIC) 0.5 % ophthalmic solution clobetasol (TEMOVATE) 0.05 % ointment >Zippered Compression Knee High 30-40 mm custom latanoprost (XALATAN) 0.005 % ophthalmic solution polyethylene glycol 3350 (MIRALAX, GLYCOLAX) 17 gram/dose powder Brimonidine-Timolol (COMBIGAN) 0.2-0.5 % drop TRAVATAN Z 0.004 % Drop Cholecalciferol, Vitamin D3, 2,000 unit ORAL Cap aspirin(ASPIR-81 81 MG TAB) calcium carbonate(CALTRATE 600 600 MG (1,500 MG) TAB) clobetasol (TEMOVATE) 0.05 % ointment Review of Systems CONSTITUTIONAL: No fevers, chills night sweats, unintended weight loss CARDIOVASCULAR: No chest pain, dyspnea, palpitations, orthopnea, PND, ankle edema. PULM: No dyspnea, unexplained cough. GI: No dysphagia/odynophagia, problematic reflux, constipation, diarrhea, changes in stool habits, hematochezia, melena. : No new urinary complaints, including dysuria, gross hematuria or pyuria. NEURO: No new balance problems, peripheral weakness/paresthesias or numbness of concern. Physical Exam BP 128/62 Pulse (!) 56 Resp 16 Ht 159 cm (5' 2.6 ) Wt 60.8 kg (134 lb) BMI 24.04 kg/m General appearance: Well appearing, alert, in no acute distress, well nourished. Skin: Skin color, texture, turgor normal, no suspicious rashes or lesions Head: Normocephalic, no masses, lesions, tenderness or abnormalities Eyes: Anicteric sclera. Pupils are equally round and reactive to light. Extraocular movements are intact. Lungs: Lungs clear to auscultation. No wheezing, rhonchi, rales Heart: RRR without murmur, gallop, or rubs. Extremities: No deformities, edema, skin discoloration, clubbing or cyanosis. Good capillary refill. ASSESSMENT/PLAN: 1. Encounter for Medicare annual wellness exam - ICD9: V70.0, ICD10: Z00.00 (primary diagnosis) - Counseled on healthy diet and regular exercise - Calcium intake with supplements or by diet of 1000 mg/day for under 50, 1200- 1500 mg/day for 50+ 2. Mixed hyperlipidemia - ICD9: 272.2, ICD10: E78.2 - good control - Continue current medication. - LIPID PANEL BASIC 3. Essential hypertension - ICD9: 401.9, ICD10: I10 - good control - Recommended regular aerobic exercise. - Recommend home blood pressure monitoring, to bring results in on next visit - Goal of BP <130/80 - COMP METABOLIC PANEL - CBC 4. Hypothyroidism, unspecified type - ICD9: 244.9, ICD10: E03.9 - Instructed patient on importance of taking on an empty stomach either first thing in the morning or at bedtime. Stable - Continue current medications - TSH BLD Татьяна Barnard MD documented in this encounterKn[facility]03-28-2022 Miscellaneous Notes* Telephone Encounter - Cheryl George RN - 09/23/2021 4:23 PM EDT Pt called and is notified of providers message and instructions. Pt voices understanding. Pt will come do urine sample in the morning. Cheryl George RN * Telephone Encounter - Jesusita Drake APRN.CNP - 09/23/2021 4:15 PM EDT I placed orders for urinalysis and culture. I did go ahead and sent a prescription to her pharmacy for macrobid one pill twice a day. I would prefer to have a urine sample prior to starting this if possible. Thank you Jesusita Drake APRN.CNP * Telephone Encounter - Cheryl George RN - 09/23/2021 10:39 AM EDT Pt called in and reports she feels like she has to urinate, but is only able to dribble. This has been going on for about 1-2 weeks. States she has slight pressure when she releases urine. Has been feeling nauseated. Denies fever, back pain. Sometimes she says she feels warm and breaks out in a sweat. Pt states this is how she felt when she had the UTI on 04/11/21. Pt asking if provider would send in antibiotics for her. Let Pt know provider may want her to have urine tested first. Please call and advise. documented in this encounterKnox [facility]06-18-2013 History of Past illness Narrative* Problem Noted Date Resolved Date Incisional hernia 12/14/2012 08/06/2016 Urgency of urination 02/20/2009 06/14/2020 Urge incontinence 02/20/2009 08/06/2016 Female stress incontinence 02/20/200908/06 Nocturia 02/20/2009 08/06/2016 Symptomatic menopausal or female climacteric sta jennie 02/20/2009 08/06/2016 Postmenopausal atrophic vaginitis 02/20/2009 06/14/2020 Disorder of bone and cartilage, unspecified 01/2803/24/2012 Hypopotassemia 01/06/2008 08/06/2016 Osteoporosis, unspecified 2009 HYPERLIPIDEMIA NEC/NOS 6 OVERWEIGHT 09/25/2015 Internal hemorrhoids without mention of complica tion 08/06/2016 documented as of this encounter (statuses as of 09/23/2021) [facility] of Past illness Narrative* Problem Noted Date Resolved Date Incisional hernia 12/14/2012 08/06/2016 Urgency of urination 02/20/2009 06/14/2020 Urge incontinence 02/20/2009 08/06/2016 Female stress incontinence 02/20/200908/06 Nocturia 02/20/2009 08/06/2016 Symptomatic menopausal or female climacteric sta jennie 02/20/2009 08/06/2016 Postmenopausal atrophic vaginitis 02/20/2009 06/14/2020 Disorder of bone and cartilage, unspecified 01/2803/24/2012 Hypopotassemia 01/06/2008 08/06/2016 Osteoporosis, unspecified 2009 HYPERLIPIDEMIA NEC/NOS 6 OVERWEIGHT 09/25/2015 Internal hemorrhoids without mention of complica tion 08/06/2016 documented as of this encounter (statuses as of 12/10/2021) [facility] of Past illness Narrative* Problem Noted Date Resolved Date Incisional hernia 12/14/2012 08/06/2016 Urgency of urination 02/20/2009 06/14/2020 Urge incontinence 02/20/2009 08/06/2016 Female stress incontinence 02/20/200908/06 Nocturia 02/20/2009 08/06/2016 Symptomatic menopausal or female climacteric sta jennie 02/20/2009 08/06/2016 Postmenopausal atrophic vaginitis 02/20/2009 06/14/2020 Disorder of bone and cartilage, unspecified 01/2803/24/2012 Hypopotassemia 01/06/2008 08/06/2016 Osteoporosis, unspecified 2009 HYPERLIPIDEMIA NEC/NOS 6 OVERWEIGHT 09/25/2015 Internal hemorrhoids without mention of complica tion 08/06/2016 documented as of this encounter (statuses as of 12/25/2021) [facility] History of Past illness Narrative* Problem Noted Date Resolved Date Incisional hernia 12/14/2012 08/06/2016 Urgency of urination 02/20/2009 06/14/2020 Urge incontinence 02/20/2009 08/06/2016 Female stress incontinence 02/20/200908/06 Nocturia 02/20/2009 08/06/2016 Symptomatic menopausal or female climacteric sta jennie 02/20/2009 08/06/2016 Postmenopausal atrophic vaginitis 02/20/2009 06/14/2020 Disorder of bone and cartilage, unspecified 01/2803/24/2012 Hypopotassemia 01/06/2008 08/06/2016 Osteoporosis, unspecified 2009 HYPERLIPIDEMIA NEC/NOS 6 OVERWEIGHT 09/25/2015 Internal hemorrhoids without mention of complica tion 08/06/2016 documented as of this encounter (statuses as of 01/16/2022) [facility] History of Past illness Narrative* Problem Noted Date Resolved Date Incisional hernia 12/14/2012 08/06/2016 Urgency of urination 02/20/2009 06/14/2020 Urge incontinence 02/20/2009 08/06/2016 Female stress incontinence 02/20/200908/06 Nocturia 02/20/2009 08/06/2016 Symptomatic menopausal or female climacteric sta jennie 02/20/2009 08/06/2016 Postmenopausal atrophic vaginitis 02/20/2009 06/14/2020 Disorder of bone and cartilage, unspecified 01/2803/24/2012 Hypopotassemia 01/06/2008 08/06/2016 Osteoporosis, unspecified 2009 HYPERLIPIDEMIA NEC/NOS 6 OVERWEIGHT 09/25/2015 Internal hemorrhoids without mention of complica tion 08/06/2016 documented as of this encounter (statuses as of 01/18/2022) [facility] History of Past illness Narrative* Problem Noted Date Resolved Date Incisional hernia 12/14/2012 08/06/2016 Urgency of urination 02/20/2009 06/14/2020 Urge incontinence 02/20/2009 08/06/2016 Female stress incontinence 02/20/200908/06 Nocturia 02/20/2009 08/06/2016 Symptomatic menopausal or female climacteric sta jennie 02/20/2009 08/06/2016 Postmenopausal atrophic vaginitis 02/20/2009 06/14/2020 Disorder of bone and cartilage, unspecified 01/2803/24/2012 Hypopotassemia 01/06/2008 08/06/2016 Osteoporosis, unspecified 2009 HYPERLIPIDEMIA NEC/NOS 6 OVERWEIGHT 09/25/2015 Internal hemorrhoids without mention of complica tion 08/06/2016 documented as of this encounter (statuses as of 01/25/2022) [facility] of Past illness Narrative* Problem Noted Date Resolved Date Incisional hernia 12/14/2012 08/06/2016 Urgency of urination 02/20/2009 06/14/2020 Urge incontinence 02/20/2009 08/06/2016 Female stress incontinence 02/20/200908/06 Nocturia 02/20/2009 08/06/2016 Symptomatic menopausal or female climacteric sta jennie 02/20/2009 08/06/2016 Postmenopausal atrophic vaginitis 02/20/2009 06/14/2020 Disorder of bone and cartilage, unspecified 01/2803/24/2012 Hypopotassemia 01/06/2008 08/06/2016 Osteoporosis, unspecified 2009 HYPERLIPIDEMIA NEC/NOS 6 OVERWEIGHT 09/25/2015 Internal hemorrhoids without mention of complica tion 08/06/2016 documented as of this encounter (statuses as of 02/21/2022) [facility] of Past illness Narrative* Problem Noted Date Resolved Date Incisional hernia 12/14/2012 08/06/2016 Urgency of urination 02/20/2009 06/14/2020 Urge incontinence 02/20/2009 08/06/2016 Female stress incontinence 02/20/200908/06 Nocturia 02/20/2009 08/06/2016 Symptomatic menopausal or female climacteric sta jennie 02/20/2009 08/06/2016 Postmenopausal atrophic vaginitis 02/20/2009 06/14/2020 Disorder of bone and cartilage, unspecified 01/2803/24/2012 Hypopotassemia 01/06/2008 08/06/2016 Osteoporosis, unspecified 2009 HYPERLIPIDEMIA NEC/NOS 6 OVERWEIGHT 09/25/2015 Internal hemorrhoids without mention of complica tion 08/06/2016 documented as of this encounter (statuses as of 03/10/2022) [facility] History of Past illness Narrative* Problem Noted Date Resolved Date Incisional hernia 12/14/2012 08/06/2016 Urgency of urination 02/20/2009 06/14/2020 Urge incontinence 02/20/2009 08/06/2016 Female stress incontinence 02/20/200908/06 Nocturia 02/20/2009 08/06/2016 Symptomatic menopausal or female climacteric sta jennie 02/20/2009 08/06/2016 Postmenopausal atrophic vaginitis 02/20/2009 06/14/2020 Disorder of bone and cartilage, unspecified 01/2803/24/2012 Hypopotassemia 01/06/2008 08/06/2016 Osteoporosis, unspecified 2009 HYPERLIPIDEMIA NEC/NOS 6 OVERWEIGHT 09/25/2015 Internal hemorrhoids without mention of complica tion 08/06/2016 documented as of this encounter (statuses as of 03/12/2022) [facility] History of Past illness Narrative* Problem Noted Date Resolved Date Incisional hernia 12/14/2012 08/06/2016 Urgency of urination 02/20/2009 06/14/2020 Urge incontinence 02/20/2009 08/06/2016 Female stress incontinence 02/20/200908/06 Nocturia 02/20/2009 08/06/2016 Symptomatic menopausal or female climacteric sta jennie 02/20/2009 08/06/2016 Postmenopausal atrophic vaginitis 02/20/2009 06/14/2020 Disorder of bone and cartilage, unspecified 01/2803/24/2012 Hypopotassemia 01/06/2008 08/06/2016 Osteoporosis, unspecified 2009 HYPERLIPIDEMIA NEC/NOS 6 OVERWEIGHT 09/25/2015 Internal hemorrhoids without mention of complica tion 08/06/2016 documented as of this encounter (statuses as of 03/14/2022) [facility] History of Past illness Narrative* Problem Noted Date Resolved Date Incisional hernia 12/14/2012 08/06/2016 Urgency of urination 02/20/2009 06/14/2020 Urge incontinence 02/20/2009 08/06/2016 Female stress incontinence 02/20/200908/06 Nocturia 02/20/2009 08/06/2016 Symptomatic menopausal or female climacteric sta jennie 02/20/2009 08/06/2016 Postmenopausal atrophic vaginitis 02/20/2009 06/14/2020 Disorder of bone and cartilage, unspecified 01/2803/24/2012 Hypopotassemia 01/06/2008 08/06/2016 Osteoporosis, unspecified 2009 HYPERLIPIDEMIA NEC/NOS 6 OVERWEIGHT 09/25/2015 Internal hemorrhoids without mention of complica tion 08/06/2016 documented as of this encounter (statuses as of 03/20/2022) [facility] History of Past illness Narrative* Problem Noted Date Resolved Date Incisional hernia 12/14/2012 08/06/2016 Urgency of urination 02/20/2009 06/14/2020 Urge incontinence 02/20/2009 08/06/2016 Female stress incontinence 02/20/200908/06 Nocturia 02/20/2009 08/06/2016 Symptomatic menopausal or female climacteric sta jennie 02/20/2009 08/06/2016 Postmenopausal atrophic vaginitis 02/20/2009 06/14/2020 Disorder of bone and cartilage, unspecified 01/2803/24/2012 Hypopotassemia 01/06/2008 08/06/2016 Osteoporosis, unspecified 2009 HYPERLIPIDEMIA NEC/NOS 6 OVERWEIGHT 09/25/2015 Internal hemorrhoids without mention of complica tion 08/06/2016 documented as of this encounter (statuses as of 03/21/2022) [facility] History of Past illness Narrative* Problem Noted Date Resolved Date Incisional hernia 12/14/2012 08/06/2016 Urgency of urination 02/20/2009 06/14/2020 Urge incontinence 02/20/2009 08/06/2016 Female stress incontinence 02/20/200908/06 Nocturia 02/20/2009 08/06/2016 Symptomatic menopausal or female climacteric sta jennie 02/20/2009 08/06/2016 Postmenopausal atrophic vaginitis 02/20/2009 06/14/2020 Disorder of bone and cartilage, unspecified 01/2803/24/2012 Hypopotassemia 01/06/2008 08/06/2016 Osteoporosis, unspecified 2009 HYPERLIPIDEMIA NEC/NOS 6 OVERWEIGHT 09/25/2015 Internal hemorrhoids without mention of complica tion 08/06/2016 documented as of this encounter (statuses as of 04/02/2022) [facility] History of Past illness Narrative* Problem Noted Date Resolved Date Incisional hernia 12/14/2012 08/06/2016 Urgency of urination 02/20/2009 06/14/2020 Urge incontinence 02/20/2009 08/06/2016 Female stress incontinence 02/20/200908/06 Nocturia 02/20/2009 08/06/2016 Symptomatic menopausal or female climacteric sta jennie 02/20/2009 08/06/2016 Postmenopausal atrophic vaginitis 02/20/2009 06/14/2020 Disorder of bone and cartilage, unspecified 01/2803/24/2012 Hypopotassemia 01/06/2008 08/06/2016 Osteoporosis, unspecified 2009 HYPERLIPIDEMIA NEC/NOS 6 OVERWEIGHT 09/25/2015 Internal hemorrhoids without mention of complica tion 08/06/2016 documented as of this encounter (statuses as of 04/02/2022) [facility] History of Past illness Narrative* Problem Noted Date Resolved Date Incisional hernia 12/14/2012 08/06/2016 Urgency of urination 02/20/2009 06/14/2020 Urge incontinence 02/20/2009 08/06/2016 Female stress incontinence 02/20/200908/06 Nocturia 02/20/2009 08/06/2016 Symptomatic menopausal or female climacteric sta jennie 02/20/2009 08/06/2016 Postmenopausal atrophic vaginitis 02/20/2009 06/14/2020 Disorder of bone and cartilage, unspecified 01/2803/24/2012 Hypopotassemia 01/06/2008 08/06/2016 Osteoporosis, unspecified 2009 HYPERLIPIDEMIA NEC/NOS 6 OVERWEIGHT 09/25/2015 Internal hemorrhoids without mention of complica tion 08/06/2016 documented as of this encounter (statuses as of 04/02/2022) [facility] History of Past illness Narrative* Problem Noted Date Resolved Date Incisional hernia 12/14/2012 08/06/2016 Urgency of urination 02/20/2009 06/14/2020 Urge incontinence 02/20/2009 08/06/2016 Female stress incontinence 02/20/200908/06 Nocturia 02/20/2009 08/06/2016 Symptomatic menopausal or female climacteric sta jennie 02/20/2009 08/06/2016 Postmenopausal atrophic vaginitis 02/20/2009 06/14/2020 Disorder of bone and cartilage, unspecified 01/2803/24/2012 Hypopotassemia 01/06/2008 08/06/2016 Osteoporosis, unspecified 2009 HYPERLIPIDEMIA NEC/NOS 6 OVERWEIGHT 09/25/2015 Internal hemorrhoids without mention of complica tion 08/06/2016 documented as of this encounter (statuses as of 04/04/2022) [facility] History of Past illness Narrative* Problem Noted Date Resolved Date Incisional hernia 12/14/2012 08/06/2016 Urgency of urination 02/20/2009 06/14/2020 Urge incontinence 02/20/2009 08/06/2016 Female stress incontinence 02/20/200908/06 Nocturia 02/20/2009 08/06/2016 Symptomatic menopausal or female climacteric sta jennie 02/20/2009 08/06/2016 Postmenopausal atrophic vaginitis 02/20/2009 06/14/2020 Disorder of bone and cartilage, unspecified 01/2803/24/2012 Hypopotassemia 01/06/2008 08/06/2016 Osteoporosis, unspecified 2009 HYPERLIPIDEMIA NEC/NOS 6 OVERWEIGHT 09/25/2015 Internal hemorrhoids without mention of complica tion 08/06/2016 documented as of this encounter (statuses as of 04/10/2022) [facility] History of Past illness Narrative* Problem Noted Date Resolved Date Incisional hernia 12/14/2012 08/06/2016 Urgency of urination 02/20/2009 06/14/2020 Urge incontinence 02/20/2009 08/06/2016 Female stress incontinence 02/20/200908/06 Nocturia 02/20/2009 08/06/2016 Symptomatic menopausal or female climacteric sta jennie 02/20/2009 08/06/2016 Postmenopausal atrophic vaginitis 02/20/2009 06/14/2020 Disorder of bone and cartilage, unspecified 01/2803/24/2012 Hypopotassemia 01/06/2008 08/06/2016 Osteoporosis, unspecified 2009 HYPERLIPIDEMIA NEC/NOS 6 OVERWEIGHT 09/25/2015 Internal hemorrhoids without mention of complica tion 08/06/2016 documented as of this encounter (statuses as of 04/10/2022) [facility] History of Past illness Narrative* Problem Noted Date Resolved Date Incisional hernia 12/14/2012 08/06/2016 Urgency of urination 02/20/2009 06/14/2020 Urge incontinence 02/20/2009 08/06/2016 Female stress incontinence 02/20/200908/06 Nocturia 02/20/2009 08/06/2016 Symptomatic menopausal or female climacteric sta jnenie 02/20/2009 08/06/2016 Postmenopausal atrophic vaginitis 02/20/2009 06/14/2020 Disorder of bone and cartilage, unspecified 01/2803/24/2012 Hypopotassemia 01/06/2008 08/06/2016 Osteoporosis, unspecified 2009 HYPERLIPIDEMIA NEC/NOS 6 OVERWEIGHT 09/25/2015 Internal hemorrhoids without mention of complica tion 08/06/2016 documented as of this encounter (statuses as of 04/11/2022) [facility] History of Past illness Narrative* Problem Noted Date Resolved Date Incisional hernia 12/14/2012 08/06/2016 Urgency of urination 02/20/2009 06/14/2020 Urge incontinence 02/20/2009 08/06/2016 Female stress incontinence 02/20/200908/06 Nocturia 02/20/2009 08/06/2016 Symptomatic menopausal or female climacteric sta jennie 02/20/2009 08/06/2016 Postmenopausal atrophic vaginitis 02/20/2009 06/14/2020 Disorder of bone and cartilage, unspecified 01/2803/24/2012 Hypopotassemia 01/06/2008 08/06/2016 Osteoporosis, unspecified 2009 HYPERLIPIDEMIA NEC/NOS 6 OVERWEIGHT 09/25/2015 Internal hemorrhoids without mention of complica tion 08/06/2016 documented as of this encounter (statuses as of 04/14/2022) [facility] History of Past illness Narrative* Problem Noted Date Resolved Date Incisional hernia 12/14/2012 08/06/2016 Urgency of urination 02/20/2009 06/14/2020 Urge incontinence 02/20/2009 08/06/2016 Female stress incontinence 02/20/200908/06 Nocturia 02/20/2009 08/06/2016 Symptomatic menopausal or female climacteric sta jennie 02/20/2009 08/06/2016 Postmenopausal atrophic vaginitis 02/20/2009 06/14/2020 Disorder of bone and cartilage, unspecified 01/2803/24/2012 Hypopotassemia 01/06/2008 08/06/2016 Osteoporosis, unspecified 2009 HYPERLIPIDEMIA NEC/NOS 6 OVERWEIGHT 09/25/2015 Internal hemorrhoids without mention of complica tion 08/06/2016 documented as of this encounter (statuses as of 04/21/2022) [facility] History of Past illness Narrative* Problem Noted Date Resolved Date Incisional hernia 12/14/2012 08/06/2016 Urgency of urination 02/20/2009 06/14/2020 Urge incontinence 02/20/2009 08/06/2016 Female stress incontinence 02/20/200908/06 Nocturia 02/20/2009 08/06/2016 Symptomatic menopausal or female climacteric sta jennie 02/20/2009 08/06/2016 Postmenopausal atrophic vaginitis 02/20/2009 06/14/2020 Disorder of bone and cartilage, unspecified 01/2803/24/2012 Hypopotassemia 01/06/2008 08/06/2016 Osteoporosis, unspecified 2009 HYPERLIPIDEMIA NEC/NOS 6 OVERWEIGHT 09/25/2015 Internal hemorrhoids without mention of complica tion 08/06/2016 documented as of this encounter (statuses as of 05/07/2022) [facility] History of Past illness Narrative* Problem Noted Date Resolved Date Incisional hernia 12/14/2012 08/06/2016 Urgency of urination 02/20/2009 06/14/2020 Urge incontinence 02/20/2009 08/06/2016 Female stress incontinence 02/20/200908/06 Nocturia 02/20/2009 08/06/2016 Symptomatic menopausal or female climacteric sta jennie 02/20/2009 08/06/2016 Postmenopausal atrophic vaginitis 02/20/2009 06/14/2020 Disorder of bone and cartilage, unspecified 01/2803/24/2012 Hypopotassemia 01/06/2008 08/06/2016 Osteoporosis, unspecified 2009 HYPERLIPIDEMIA NEC/NOS 6 OVERWEIGHT 09/25/2015 Internal hemorrhoids without mention of complica tion 08/06/2016 documented as of this encounter (statuses as of 06/13/2022) [facility] of Past illness Narrative* Problem Noted Date Resolved Date Incisional hernia 12/14/2012 08/06/2016 Urgency of urination 02/20/2009 06/14/2020 Urge incontinence 02/20/2009 08/06/2016 Female stress incontinence 02/20/200908/06 Nocturia 02/20/2009 08/06/2016 Symptomatic menopausal or female climacteric sta jennie 02/20/2009 08/06/2016 Postmenopausal atrophic vaginitis 02/20/2009 06/14/2020 Disorder of bone and cartilage, unspecified 01/2803/24/2012 Hypopotassemia 01/06/2008 08/06/2016 Osteoporosis, unspecified 2009 HYPERLIPIDEMIA NEC/NOS 6 OVERWEIGHT 09/25/2015 Internal hemorrhoids without mention of complica tion 08/06/2016 documented as of this encounter (statuses as of 07/03/2022) [facility] of Past illness Narrative* Problem Noted Date Resolved Date Incisional hernia 12/14/2012 08/06/2016 Urgency of urination 02/20/2009 06/14/2020 Urge incontinence 02/20/2009 08/06/2016 Female stress incontinence 02/20/200908/06 Nocturia 02/20/2009 08/06/2016 Symptomatic menopausal or female climacteric sta jennie 02/20/2009 08/06/2016 Postmenopausal atrophic vaginitis 02/20/2009 06/14/2020 Disorder of bone and cartilage, unspecified 01/2803/24/2012 Hypopotassemia 01/06/2008 08/06/2016 Osteoporosis, unspecified 2009 HYPERLIPIDEMIA NEC/NOS 6 OVERWEIGHT 09/25/2015 Internal hemorrhoids without mention of complica tion 08/06/2016 documented as of this encounter (statuses as of 07/03/2022) [facility] Past illness Narrative* Problem Noted Date Resolved Date Incisional hernia 12/14/2012 08/06/2016 Urgency of urination 02/20/2009 06/14/2020 Urge incontinence 02/20/2009 08/06/2016 Female stress incontinence 02/20/200908/06 Nocturia 02/20/2009 08/06/2016 Symptomatic menopausal or female climacteric sta jennie 02/20/2009 08/06/2016 Postmenopausal atrophic vaginitis 02/20/2009 06/14/2020 Disorder of bone and cartilage, unspecified 01/2803/24/2012 Hypopotassemia 01/06/2008 08/06/2016 Osteoporosis, unspecified 2009 HYPERLIPIDEMIA NEC/NOS 6 OVERWEIGHT 09/25/2015 Internal hemorrhoids without mention of complica tion 08/06/2016 documented as of this encounter (statuses as of 08/05/2022) [facility] of Past illness Narrative* Problem Noted Date Resolved Date Incisional hernia 12/14/2012 08/06/2016 Urgency of urination 02/20/2009 06/14/2020 Urge incontinence 02/20/2009 08/06/2016 Female stress incontinence 02/20/200908/06 Nocturia 02/20/2009 08/06/2016 Symptomatic menopausal or female climacteric sta jennie 02/20/2009 08/06/2016 Postmenopausal atrophic vaginitis 02/20/2009 06/14/2020 Disorder of bone and cartilage, unspecified 01/2803/24/2012 Hypopotassemia 01/06/2008 08/06/2016 Osteoporosis, unspecified 2009 HYPERLIPIDEMIA NEC/NOS 6 OVERWEIGHT 09/25/2015 Internal hemorrhoids without mention of complica tion 08/06/2016 documented as of this encounter (statuses as of 09/10/2022) [facility] Past [facility]arrative* Problem Noted Date Resolved Date Incisional hernia 12/14/2012 08/06/2016 Urgency of urination 02/20/2009 06/14/2020 Urge incontinence 02/20/2009 08/06/2016 Female stress incontinence 02/20/200908/06 Nocturia 02/20/2009 08/06/2016 Symptomatic menopausal or female climacteric sta jennie 02/20/2009 08/06/2016 Postmenopausal atrophic vaginitis 02/20/2009 06/14/2020 Disorder of bone and cartilage, unspecified 01/2803/24/2012 Hypopotassemia 01/06/2008 08/06/2016 Osteoporosis, unspecified 2009 HYPERLIPIDEMIA NEC/NOS 6 OVERWEIGHT 09/25/2015 Internal hemorrhoids without mention of complica tion 08/06/2016 documented as of this encounter (statuses as of 10/09/2022) [facility] Past [facility]arrative* Problem Noted Date Resolved Date Incisional hernia 12/14/2012 08/06/2016 Urgency of urination 02/20/2009 06/14/2020 Urge incontinence 02/20/2009 08/06/2016 Female stress incontinence 02/20/200908/06 Nocturia 02/20/2009 08/06/2016 Symptomatic menopausal or female climacteric sta jennie 02/20/2009 08/06/2016 Postmenopausal atrophic vaginitis 02/20/2009 06/14/2020 Disorder of bone and cartilage, unspecified 01/2803/24/2012 Hypopotassemia 01/06/2008 08/06/2016 Osteoporosis, unspecified 2009 HYPERLIPIDEMIA NEC/NOS 6 OVERWEIGHT 09/25/2015 Internal hemorrhoids without mention of complica tion 08/06/2016 documented as of this encounter (statuses as of 10/11/2022) [facility]arrative* Problem Noted Date Resolved Date Incisional hernia 12/14/2012 08/06/2016 Urgency of urination 02/20/2009 06/14/2020 Urge incontinence 02/20/2009 08/06/2016 Female stress incontinence 02/20/200908/06 Nocturia 02/20/2009 08/06/2016 Symptomatic menopausal or female climacteric sta jennie 02/20/2009 08/06/2016 Postmenopausal atrophic vaginitis 02/20/2009 06/14/2020 Disorder of bone and cartilage, unspecified 01/2803/24/2012 Hypopotassemia 01/06/2008 08/06/2016 Osteoporosis, unspecified 2009 HYPERLIPIDEMIA NEC/NOS 6 OVERWEIGHT 09/25/2015 Internal hemorrhoids without mention of complica tion 08/06/2016 documented as of this encounter (statuses as of 12/17/2022) [facility] Past illness [facility]arrative* Problem Noted Date Diagnosed Date Resolved Date Incisional hernia 12/14/2012 08/06/2016 Urgency of urination 02/20/2009 020 Urge incontinence 02/20/2009 08/06/2016 Female stress incontinence 02/20/2009 0 08/06/2016 Nocturia 02/20/2009 08/06/2016 Symptomatic menopausal or fe male climacteric states 02/20/2009 08/06/2016 Postmenopausal atrophic vaginitis 02/20/2009 06/14/2020 Disorder of bone and cartilage, unspecified 02/20/2009 03/24/2012 Hypopotassemia 01/06/2008 08/06/2016 Osteoporosis, unspecified HYPERLIPIDEMIA NEC/NOS 09/24 OVERWEIGHT 09/25/2015 Internal hemorrhoids without mention of complication 08/06/2016 documented as of this encounter (statuses as of 01/08/2023) [facility] Diagnosis Encounter for Medicare annual wellness exam- Primary Routine general medical examination at a health care facility Mixed hyperlipidemia Essential hypertension Unspecified essential hypertension Hypothyroidism, unspecified type [facility] Diagnosis Hypertensive kidney disease with stage 3b chronic kidney disease (HCC)- Primary [facility] Diagnosis History of osteoporosis- Primary Personal history of other musculoskeletal disorders senior living use of alendronate therapy [facility] Diagnosis Anemia, unspecified type- Primary Positive fecal occult blood test Nonspecific abnormal finding in stool contents [facility] Diagnosis Sweating profusely- Primary Generalized hyperhidrosis Essential hypertension Unspecified essential hypertension Hypotension, unspecified hypotension type Chest pain, unspecified type Diarrhea, unspecified type [facility] Diagnosis Essential hypertension- Primary Unspecified essential hypertension Hypothyroidism, unspecified type Persistent atrial fibrillation (HCC) Atrial fibrillation Other fatigue [facility] Diagnosis Nausea Nausea alone documented in this encounter [facility] note* Diagnosis Acute cough- Primary Nausea Nausea alone Diarrhea, unspecified type Fatigue, unspecified type Anemia, unspecified type documented in this encounter [facility] note* Diagnosis Diarrhea, unspecified type- Primary documented in this encounter [facility] note* Diagnosis Acute cough- Primary Hypokalemia Hypopotassemia Shortness of breath Nausea Nausea alone Edema of both lower extremities documented in this encounter [facility] note* Diagnosis Congestive heart failure, unspecified HF chronicity, unspecified heart failure type (HCC)- Primary Essential hypertension Unspecified essential hypertension Mixed hyperlipidemia Pedal edema Edema Acute cough Hypokalemia Hypopotassemia Hypothyroidism, unspecified type documented in this encounter [facility] note* Diagnosis Acute cough- Primary documented in this encounter [facility] note* Diagnosis Hypotension, unspecified hypotension type- Primary GERI (acute kidney injury) (HCC) Acute kidney failure, unspecified documented in this encounter [facility] note* Diagnosis Anemia, unspecified type- Primary documented in this encounter [facility] note* Diagnosis Pleural effusion- Primary Unspecified pleural effusion Hypothyroidism, unspecified type Atelectasis Pulmonary collapse History of recent pneumonia Need for influenza vaccination Need for prophylactic vaccination and inoculation against influenza Anemia, unspecified type Congestive heart failure, unspecified HF chronicity, unspecified heart failure type (HCC) Stage 3b chronic kidney disease (HCC) documented in this encounter [facility] note* Diagnosis Pulmonary hypertension (HCC)- Primary Other chronic pulmonary heart diseases Pedal edema Edema Permanent atrial fibrillation (HCC) Atrial fibrillation Mixed hyperlipidemia Hypertensive kidney disease with stage 3b chronic kidney disease (HCC) Essential hypertension Unspecified essential hypertension Stage 3a chronic kidney disease (HCC) documented in this encounter [facility] note* Diagnosis Anemia, unspecified type- Primary Essential hypertension Unspecified essential hypertension Permanent atrial fibrillation (HCC) Atrial fibrillation Hypothyroidism, unspecified type Fatigue, unspecified type documented in this encounter [facility] note* Diagnosis Essential hypertension- Primary Unspecified essential hypertension 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, subsequent encounter documented in this encounter [facility] note* Diagnosis Permanent atrial fibrillation (HCC)- Primary Atrial fibrillation At risk for stroke Other specified personal history presenting hazards to health Anticoagulant long-term use Long-term (current) use of anticoagulants At risk for bleeding associated with anticoagulants History of GI bleed Personal history of other diseases of digestive system [facility] Diagnosis Age related osteoporosis, unspecified pathological fracture presence- Primary documented in this encounter [facility] note* Diagnosis Nausea Nausea alone documented in this encounter [facility] note* Diagnosis Hypertensive kidney disease with stage 3b chronic kidney disease (HCC)- Primary Mixed hyperlipidemia Osteoporosis without current pathological fracture, unspecified osteoporosis type Mid back pain Backache, unspecified Hypothyroidism, unspecified type Elevated hemoglobin A1c Other abnormal blood chemistry Need for influenza vaccination Need for prophylactic vaccination and inoculation against influenza documented in this encounter [facility] note* Diagnosis Hypertensive kidney disease with stage 3b chronic kidney disease (HCC)- Primary documented in this encounter [facility] note* Diagnosis 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, subsequent encounter documented in this encounter [facility] note* Diagnosis Essential hypertension- Primary Unspecified essential hypertension documented in this encounter [facility] note* Diagnosis Hypertensive kidney disease with stage 3b chronic kidney disease (HCC) [facility] Diagnostic Procedure Only (Routine) - Closed Specialty Diagnoses / Procedures Referred By Jalen monreal Referred To Contact XR IMAGING Diagnoses Osteoporosis without current pathological fracture, unspecified osteoporosis type Mid back pain Procedures XR THORACIC GENERAL 3V AP/LAT/SWIMMERS RADEX SPINE THORACIC 3 VIEWS Jesusita Drake APRN.CAB STARTER [address] [place] [address] Xr Imaging [id number] Referral ID Status Reason Start Date Expiration Date V isits Requested Visits Authorized [id number] Closed Auto-Generate d Referral 04/09/2023 05/08/2024 1 1 [facility] Reason for Referral Specialty Diagnoses / Procedures Referred By Jalen monreal Referred To Contact Gastroenterology Diagnoses Anemia, unspecified type Positive fecal occult blood test Procedures CONSULT TO GASTROENTEROLOGY OFFICE/OUTPATIENT NEW HIGH MDM 60-74 MINUTES Toshia Drake APRN.CAB STARTER [address] [place] [address] Referral ID Status Reason Start Date Expiration Date Visits Requested Visits Authorized [id number] Authorized PCP Requested Referral 01/17/2022 01/17/2023 1 1 Specialty Diagnoses / Procedures Referred By Contac t Referred To Contact General Surgery Diagnoses Anemia, unspecified type Positive fecal occult blood test Procedures CONSULT TO GENERAL SURGERY OFFICE/OUTPATIENT NEW HIGH MDM 60-74 MINUTES Older, DAVID Pope.CAB STARTER [address] [place] [address] Referral ID Status Reason Start Date Expiration Date Visits Requested Visits Authorized [id number] Authorized PCP Requested Referral 01/15/2022 01/15/2023 1 1 Specialty Diagnoses / Procedures Referred By Contac t Referred To Contact Endocrinology Diagnoses Age related osteoporosis, unspecified pathological fracture presence Procedures CONSULT TO ENDOCRINOLOGY OFFICE/OUTPATIENT NEW HIGH MDM 60-74 MINUTES Older, DAVID Mc.CAB STARTER [address] [place] [address] Referral ID Status Reason Start Date Expiration Date Visits Requested Visits Authorized [id number] Authorized PCP Requested Referral 02/02/2023 02/02/2024 1 1 Summary Purpose Family History No Family History Records FoundNo Family History Records Found Advance Directives No Advanced Directives Records FoundNo Advanced Directives Records Found Additional Source Comments Source Comments (unrecognize d section and content) In the event this informatio n is protected by the Federal Confidentiality of Alcohol and Drug Abuse Patient Records regulations: The Federal rules restrict any use of the information to criminally investigate or prosecute any alcohol or drug abuse patient.[facility] event this information is protected by the Federal Confidentiality of Alcohol and Drug Abuse Patient Records regulations: The Federal rules restrict any use of the information to criminally investigate or prosecute any alcohol or drug abuse patient.[facility] the event this information is protected by the Federal Confidentiality of Alcohol and Drug Abuse Patient Records regulations: The Federal rules restrict any use of the information to criminally investigate or prosecute any alcohol or drug abuse patient.[facility] the event this information is protected by the Federal Confidentiality of Alcohol and Drug Abuse Patient Records regulations: The Federal rules restrict any use of the information to criminally investigate or prosecute any alcohol or drug abuse patient.[facility] the event this information is protected by the Federal Confidentiality of Alcohol and Drug Abuse Patient Records regulations: The Federal rules restrict any use of the information to criminally investigate or prosecute any alcohol or drug abuse patient.[facility] the event this information is protected by the Federal Confidentiality of Alcohol and Drug Abuse Patient Records regulations: The Federal rules restrict any use of the information to criminally investigate or prosecute any alcohol or drug abuse patient.[facility] the event this information is protected by the Federal Confidentiality of Alcohol and Drug Abuse Patient Records regulations: The Federal rules restrict any use of the information to criminally investigate or prosecute any alcohol or drug abuse patient.[facility] the event this information is protected by the Federal Confidentiality of Alcohol and Drug Abuse Patient Records regulations: The Federal rules restrict any use of the information to criminally investigate or prosecute any alcohol or drug abuse patient.[facility] the event this information is protected by the Federal Confidentiality of Alcohol and Drug Abuse Patient Records regulations: The Federal rules restrict any use of the information to criminally investigate or prosecute any alcohol or drug abuse patient.[facility] the event this information is protected by the Federal Confidentiality of Alcohol and Drug Abuse Patient Records regulations: The Federal rules restrict any use of the information to criminally investigate or prosecute any alcohol or drug abuse patient.[facility]In the event this information is protected by the Federal Confidentiality of Alcohol and Drug Abuse Patient Records regulations: The Federal rules restrict any use of the information to criminally investigate or prosecute any alcohol or drug abuse patient.[facility] the event this information is protected by the Federal Confidentiality of Alcohol and Drug Abuse Patient Records regulations: The Federal rules restrict any use of the information to criminally investigate or prosecute any alcohol or drug abuse patient.[facility] HospitalIn the event this information is protected by the Federal Confidentiality of Alcohol and Drug Abuse Patient Records regulations: The Federal rules restrict any use of the information to criminally investigate or prosecute any alcohol or drug abuse patient.[facility] the event this information is protected by the Federal Confidentiality of Alcohol and Drug Abuse Patient Records regulations: The Federal rules restrict any use of the information to criminally investigate or prosecute any alcohol or drug abuse patient.[facility] HospitalIn the event this information is protected by the Federal Confidentiality of Alcohol and Drug Abuse Patient Records regulations: The Federal rules restrict any use of the information to criminally investigate or prosecute any alcohol or drug abuse patient.[facility] HospitalIn the event this information is protected by the Federal Confidentiality of Alcohol and Drug Abuse Patient Records regulations: The Federal rules restrict any use of the information to criminally investigate or prosecute any alcohol or drug abuse patient.[facility] HospitalIn the event this information is protected by the Federal Confidentiality of Alcohol and Drug Abuse Patient Records regulations: The Federal rules restrict any use of the information to criminally investigate or prosecute any alcohol or drug abuse patient.[facility] HospitalIn the event this information is protected by the Federal Confidentiality of Alcohol and Drug Abuse Patient Records regulations: The Federal rules restrict any use of the information to criminally investigate or prosecute any alcohol or drug abuse patient.[facility] HospitalIn the event this information is protected by the Federal Confidentiality of Alcohol and Drug Abuse Patient Records regulations: The Federal rules restrict any use of the information to criminally investigate or prosecute any alcohol or drug abuse patient.[facility] HospitalIn the event this information is protected by the Federal Confidentiality of Alcohol and Drug Abuse Patient Records regulations: The Federal rules restrict any use of the information to criminally investigate or prosecute any alcohol or drug abuse patient.[facility] HospitalIn the event this information is protected by the Federal Confidentiality of Alcohol and Drug Abuse Patient Records regulations: The Federal rules restrict any use of the information to criminally investigate or prosecute any alcohol or drug abuse patient.[facility] HospitalIn the event this information is protected by the Federal Confidentiality of Alcohol and Drug Abuse Patient Records regulations: The Federal rules restrict any use of the information to criminally investigate or prosecute any alcohol or drug abuse patient.[facility] HospitalIn the event this information is protected by the Federal Confidentiality of Alcohol and Drug Abuse Patient Records regulations: The Federal rules restrict any use of the information to criminally investigate or prosecute any alcohol or drug abuse patient.[facility] HospitalIn the event this information is protected by the Federal Confidentiality of Alcohol and Drug Abuse Patient Records regulations: The Federal rules restrict any use of the information to criminally investigate or prosecute any alcohol or drug abuse patient.[facility] HospitalIn the event this information is protected by the Federal Confidentiality of Alcohol and Drug Abuse Patient Records regulations: The Federal rules restrict any use of the information to criminally investigate or prosecute any alcohol or drug abuse patient.[facility] HospitalIn the event this information is protected by the Federal Confidentiality of Alcohol and Drug Abuse Patient Records regulations: The Federal rules restrict any use of the information to criminally investigate or prosecute any alcohol or drug abuse patient.[facility] HospitalIn the event this information is protected by the Federal Confidentiality of Alcohol and Drug Abuse Patient Records regulations: The Federal rules restrict any use of the information to criminally investigate or prosecute any alcohol or drug abuse patient.[facility] HospitalIn the event this information is protected by the Federal Confidentiality of Alcohol and Drug Abuse Patient Records regulations: The Federal rules restrict any use of the information to criminally investigate or prosecute any alcohol or drug abuse patient.[facility] HospitalIn the event this information is protected by the Federal Confidentiality of Alcohol and Drug Abuse Patient Records regulations: The Federal rules restrict any use of the information to criminally investigate or prosecute any alcohol or drug abuse patient.[facility] HospitalIn the event this information is protected by the Federal Confidentiality of Alcohol and Drug Abuse Patient Records regulations: The Federal rules restrict any use of the information to criminally investigate or prosecute any alcohol or drug abuse patient.[facility] HospitalIn the event this information is protected by the Federal Confidentiality of Alcohol and Drug Abuse Patient Records regulations: The Federal rules restrict any use of the information to criminally investigate or prosecute any alcohol or drug abuse patient.[facility] HospitalIn the event this information is protected by the Federal Confidentiality of Alcohol and Drug Abuse Patient Records regulations: The Federal rules restrict any use of the information to criminally investigate or prosecute any alcohol or drug abuse patient.[facility] HospitalIn the event this information is protected by the Federal Confidentiality of Alcohol and Drug Abuse Patient Records regulations: The Federal rules restrict any use of the information to criminally investigate or prosecute any alcohol or drug abuse patient.[facility] HospitalIn the event this information is protected by the Federal Confidentiality of Alcohol and Drug Abuse Patient Records regulations: The Federal rules restrict any use of the information to criminally investigate or prosecute any alcohol or drug abuse patient.[facility] HospitalIn the event this information is protected by the Federal Confidentiality of Alcohol and Drug Abuse Patient Records regulations: The Federal rules restrict any use of the information to criminally investigate or prosecute any alcohol or drug abuse patient.[facility] HospitalIn the event this information is protected by the Federal Confidentiality of Alcohol and Drug Abuse Patient Records regulations: The Federal rules restrict any use of the information to criminally investigate or prosecute any alcohol or drug abuse patient.[facility] HospitalIn the event this information is protected by the Federal Confidentiality of Alcohol and Drug Abuse Patient Records regulations: The Federal rules restrict any use of the information to criminally investigate or prosecute any alcohol or drug abuse patient.[facility] HospitalIn the event this information is protected by the Federal Confidentiality of Alcohol and Drug Abuse Patient Records regulations: The Federal rules restrict any use of the information to criminally investigate or prosecute any alcohol or drug abuse patient.[facility] HospitalIn the event this information is protected by the Federal Confidentiality of Alcohol and Drug Abuse Patient Records regulations: The Federal rules restrict any use of the information to criminally investigate or prosecute any alcohol or drug abuse patient.[facility] HospitalIn the event this information is protected by the Federal Confidentiality of Alcohol and Drug Abuse Patient Records regulations: The Federal rules restrict any use of the information to criminally investigate or prosecute any alcohol or drug abuse patient.[facility] HospitalIn the event this information is protected by the Federal Confidentiality of Alcohol and Drug Abuse Patient Records regulations: The Federal rules restrict any use of the information to criminally investigate or prosecute any alcohol or drug abuse patient.[facility] HospitalIn the event this information is protected by the Federal Confidentiality of Alcohol and Drug Abuse Patient Records regulations: The Federal rules restrict any use of the information to criminally investigate or prosecute any alcohol or drug abuse patient.[facility] HospitalIn the event this information is protected by the Federal Confidentiality of Alcohol and Drug Abuse Patient Records regulations: The Federal rules restrict any use of the information to criminally investigate or prosecute any alcohol or drug abuse patient.[facility] Reason for Visit (unrecogniz ed section and content) Reason Comments Medicare Wellness Exam Reason Comments Results Reason Comments Refill Request Reason Comments Results Appointment Reason Comments Patient Question Reason Comments Same Day Appointment low blood pressure, weak, chest pressure yesterday Reason Comments Hospital F/U Reason Comments Outpatient Colonoscopy Reason Onset Date Comments Refill Request 03/14/2022 Reason Comments Recheck Follow up, cough, we ak, bowel issues Reason Comments Recheck 2 week follow up, pn eumonia Reason Comments Recheck wants something for the cough Reason Comments Orders Reason Comments Low BP Reason Onset Date Comments Follow Up Immunizations 04/21/2022 Flu vaccination Reason Comments Patient Question Lab Orders Reason Comments Med Change Request Reason Comments Patient Update Orders Reason Comments Recheck 3 month follow up Reason Comments Medication Request Reason Onset Date Comments Refill Request Refill Request 12/16/2022 Reason Comments Follow Up elevated blood press ure and refills needed Reason Comments CARD New Patient Consult [facility] 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 Reason Comments Results Reason Onset Date Comments Refill Request 02/19/2023 Reason Onset Date Comments Recheck 3 month follow u p Immunizations 04/09/2023 Flu vaccination Reason Comments Follow Up blood pressure- elev ated and check home bp monitor Reason Comments 2 week follow up - blood pressure Reason Onset Date Comments Refill Request 05/07/2023 Reason Comments Blood Pressure Care Teams (unrecognized sec tion and content) Getter Filler Relationship Specialty Start Date End Date Татьяна Barnard MD [address] [facility] [address] PCP - General Internal Medicine 05/06/16 Getter Filler Relationship Specialty Start Date End Date Татьяна Barnard MD [address] [facility] [address] PCP - General Internal Medicine 05/06/16 Getter Filler Relationship Specialty Start Date End Date Татьяна Barnard MD [address] [facility] [address] PCP - General Internal Medicine 05/06/16 Getter Filler Relationship Specialty Start Date End Date Татьяна Barnard MD [address] [facility] [address] PCP - General Internal Medicine 05/06/16 Getter Filler Relationship Specialty Start Date End Date Татьяна Barnard MD [address] [facility] [address] PCP - General Internal Medicine 05/06/16 Getter Filler Relationship Specialty Start Date End Date Татьяна Barnard MD [address] [facility] [address] PCP - General Internal Medicine 05/06/16 Getter Filler Relationship Specialty Start Date End Date Татьяна Barnard MD [address] [place] [address] PCP - General Internal Medicine 05/06/16 Getter Filler Relationship Specialty Start Date End Date Татьяна Barnard MD [address] [place] [address] PCP - General Internal Medicine 05/06/16 Getter Filler Relationship Specialty Start Date End Date Татьяна Barnard MD [address] [place] [address] PCP - General Internal Medicine 05/06/16 Getter Filler Relationship Specialty Start Date End Date Татьяна Barnard MD [address] [place] [address] PCP - General Internal Medicine 05/06/16 Getter Filler Relationship Specialty Start Date End Date Татьяна Barnard MD [address] [place] [address] PCP - General Internal Medicine 05/06/16 Getter Filler Relationship Specialty Start Date End Date Татьяна Barnard MD [address] [place] [address] PCP - General Internal Medicine 05/06/16 Getter Filler Relationship Specialty Start Date End Date Татьяна Barnard MD [address] [place] [address] PCP - General Internal Medicine 05/06/16 Getter Filler Relationship Specialty Start Date End Date Татьяна Barnard MD [address] [place] [address] PCP - General Internal Medicine 05/06/16 Getter Filler Relationship Specialty Start Date End Date Татьяна Barnard MD [address] [place] [address] PCP - General Internal Medicine 05/06/16 Getter Filler Relationship Specialty Start Date End Date Татьяна Barnard MD [address] [facility] [place] [address] PCP - General Internal Medicine 05/06/16 Getter Filler Relationship Specialty Start Date End Date Татьяна Barnard MD [address] [place] [address] PCP - General Internal Medicine 05/06/16 Getter Filler Relationship Specialty Start Date End Date Таьтяна Barnard MD [address] [place] [address] PCP - General Internal Medicine 05/06/16 Getter Filler Relationship Specialty Start Date End Date Татьяна Barnard MD [address] [place] [address] PCP - General Internal Medicine 05/06/16 Getter Filler Relationship Specialty Start Date End Date Татьяна Barnard MD [address] [place] [address] PCP - General Internal Medicine 05/06/16 Fredis Marie [address] [place] [address] Specialty Furnace Charger Cardiology 01/27/23 Yuriy Collins DO [address] [place] [address] Specialty Furnace Charger Gastroenterology 01/27/23 Getter Filler Relationship Specialty Start Date End Date Татьяна Barnard MD [address] [place] [address] PCP - General Internal Medicine 05/06/16 Cynthia Fredis S [address] [place] [address] Specialty Furnace Charger Cardiology 01/27/23 Yuriy Collins DO [address] [place] [address] Specialty Furnace Charger Gastroenterology 01/27/23 Getter Filler Relationship Specialty Start Date End Date Татьяна Barnard MD [address] [facility] [place] [address] PCP - General Internal Medicine 05/06/16 Nirmal Marieril S [address] [place] [address] Specialty Furnace Charger Cardiology 01/27/23 Yuriy Collins DO [address] [place] [address] Specialty Furnace Charger Gastroenterology 01/27/23 Getter Filler Relationship Specialty Start Date End Date Татьяна Barnard MD [address] [facility] [place] [address] PCP - General Internal Medicine 05/06/16 Nirmal Marieril S [address] [place] [address] Specialty Furnace Charger Cardiology 01/27/23 Yuriy Collins DO [address] [place] [address] Specialty Furnace Charger Gastroenterology 01/27/23 Getter Filler Relationship Specialty Start Date End Date Татьяна Barnard MD [address] [facility] [place] [address] PCP - General Internal Medicine 05/06/16 Fredis Marie MD [address] [place] [address] Specialty Furnace Charger Cardiology 01/27/23 Yuriy Collins DO [address] [place] [address] Specialty Furnace Charger Gastroenterology 01/27/23 Getter Filler Relationship Specialty Start Date End Date Татьяна Barnard MD [address] [place] [address] PCP - General Internal Medicine 05/06/16 Fredis Marie MD [address] [place] [address] Specialty Furnace Charger Cardiology 01/27/23 Yuriy Collins DO [address] [place] [address] Specialty Furnace Charger Gastroenterology 01/27/23 Getter Filler Relationship Specialty Start Date End Date Татьяна Barnard MD [address] [place] [address] PCP - General Internal Medicine 05/06/16 Fredis Marie MD [address] [place] [address] Specialty Furnace Charger Cardiology 01/27/23 Yuriy Collins DO [address] [place] [address] Specialty Furnace Charger Gastroenterology 01/27/23 Getter Filler Relationship Specialty Start Date End Date Татьяна Barnard MD [address] [facility] [place] [address] PCP - General Internal Medicine 05/06/16 Fredis Marie MD [address] [place] [address] Specialty Furnace Charger Cardiology 01/27/23 Yuriy Collins DO [address] [place] [address] Specialty Furnace Charger Gastroenterology 01/27/23 Getter Filler Relationship Specialty Start Date End Date Татьяна Barnard MD [address] [facility] [place] [address] PCP - General Internal Medicine 05/06/16 Getter Filler Relationship Specialty Start Date End Date Татьяна Barnard MD [address] [facility] [place] [address] PCP - General Internal Medicine 05/06/16 Fredis Marie MD [address] [place] [address] Specialty Furnace Charger Cardiology 01/27/23 Yuriy Collins DO [address] [place] [address] Specialty Furnace Charger Gastroenterology 01/27/23 Getter Filler Relationship Specialty Start Date End Date Татьяна Barnard MD [address] [facility] [place] [address] PCP - General Internal Medicine 05/06/16 Fredis Marie MD [address] [place], [place] [id number] Specialty Furnace Charger Cardiology 01/27/23 Yuriy Collins DO [address] [place], [place] [address] Specialty Furnace Charger Gastroenterology 01/27/23 Getter Filler Relationship Specialty Start Date End Date Татьяна Barnard MD [address] [place], [place] [address] PCP - General Internal Medicine 05/06/16 Fredis Marie MD [address] [place], [place] [id number] Specialty Furnace Charger Cardiology 01/27/23 Yuriy Collins DO [address] [place], [place] [id number] Specialty Furnace Charger Gastroenterology 01/27/23 INFORMATION SOURCE (unrecogn ized section and content) DATE CREATED AUTHOR AUTHOR'S ORGANIZ ATION 07/13/2023 [facility] FOR RECORDS PERTAINING TO PATIENTS WHO ARE OR HAVE BEEN ENROLLED IN A CHEMICAL DEPENDENCY/SUBSTANCEABUSE PROGRAM, SOME INFORMATION MAY BE OMITTED. This clinical summary was aggregated from multiple sources. Caution should be exercised in using it in the provision of clinical care. This summary normalizes information from multiple sources, and as a consequence, information in this document may materially change the coding, format and clinical context of patient data. In addition, data may be omitted in some cases. CLINICAL DECISIONS SHOULD BE BASED ON THE PRIMARY CLINICAL RECORDS. [email or web address] [facility]. provides no warranty or guarantee of the accuracy or completeness of information in this document.
--- NOTE | 2023-07-13 13:31 | CT_ITS ---
STUDY: CT CHEST WITHOUT CONTRAST REASON FOR EXAM: Female, 87 years old. Hypoxia. Atrial fibrillation. Syncope. RADIATION DOSAGE (If Supplied By Facility): CTDIvol = ( 6.83 ) mGy, DLP = ( 238.95 ) mGycm TECHNIQUE: Transaxial imaging was performed without the administration of intravenous contrast material. Individualized dose optimization techniques were used for this CT. COMPARISON: Comparison is made with prior chest radiograph done earlier today. FINDINGS: CHEST Minimal increased markings at the lung apices suggestive of mild scarring. No focal infiltrate is seen. There is no demonstrated pleural abnormality. Mild pericardial thickening. There are multiple small lymph nodes within the mediastinum, which are normal in size and morphology most compatible with reactive lymph hyperplasia. Normal hilar regions. Normal unenhanced pulmonary arteries. There is atherosclerotic calcification of the aortic arch with tortuosity and elongation of the aortic arch and descending thoracic aorta. There are degenerative changes of the thoracic spine. There is no demonstrated abnormality of the visualized upper abdomen. CT/Chest without Contrast IMPRESSION: Mild degree of pericardial thickening. Mild increased markings at the lung apices suggestive of either atelectasis and/or scarring. Electronically Signed: Hans Puga MD at 14:51 EST ,
--- NOTE | 2023-07-13 13:31 | NURSING ---
DR JAMAL CASTRO
--- NOTE | 2023-07-13 13:34 | NURSING ---
DR JAMAL CASTRO
--- NOTE | 2023-07-13 13:35 | NURSING ---
PCU JAMAL SHAFFER
[2023-07-13 14:02] LABS: Mucous, Urine 0 SEEN /hpf (<or=2+)
[2023-07-13 14:08] LABS: Color, Urine Yellow (Yellow); Glucose, Dipstick Normal (Normal); Ketone-Dipstick Negative (Negative); Leukocyte Esterase-Dipstick 100 /ul (Negative); Nitrite-Dipstick Positive (Negative); Occult Blood-Urine 10 /ul (Negative); Protein-Dipstick 30 mg/dl (Negative); Urine Bilirubin Dipstick Negative (Negative); Urine Clarity Sl. Cloudy (Clear); Urine Urobilinogen Normal (Normal)
[2023-07-13 14:13] LABS: Bacteria 3+ /hpf (None Seen); Squamous Epithelial Cells - UA 0-5 SEEN /hpf (5-10); White Blood Cells 25-50 SEEN /hpf (0-5)
[2023-07-13 14:14] LABS: Red Blood Cells-Urine 0-5 SEEN /hpf (0-5)
[2023-07-13 14:24] LABS: Troponin-I HS 119 pg/mL (3.0-54.0)
--- OUTSIDE RECORDS SUMMARY | 2023-07-13 14:33 | XMS RPT_ITS | CCD ---
Author Name Unknown Address [address] [place] [address] Organization [facility] Care Team Providers Care Choreography Director Name Role Phone Evon FERNANDEZ, Татьяна Primary Care Provider Татьяна Barnard MD Primary Care Provider Cynthia, Fredis S Unavailable Friend DO, Yuriy [...] Care Unavailable MARSHALL, ENRIQUETA Referring Unavailable MARSHALL, ENRIQUTEA Attending Unavailable GANTA, ТАТЬЯНА Primary Care Unavailable MARSHALL, ENRIQUETA Referring Unavailable MARSHALL, ENRIQUETA Attending Unavailable GANTA, ТАТЬЯНА Primary Care Unavailable MARSHALL, ENRIQUETA Referring Unavailable GANTA, ТАТЬЯНА Primary Care Unavailable GANTA, ТАТЬЯНА Attending Unavailable GANTA, ТАТЬЯНА Primary Care Unavailable GANTA, ТАТЬЯНА Primary Care Unavailable GANTA, ТАТЬЯНА Attending Unavailable MARSHALL, ENRIQUETA Attending Unavailable MARSHALL, ENRIQUETA Referring Unavailable GANTA, ТАТЬЯНА Primary Care Unavailable OLDER, JESUSITA Attending Unavailable GANTA, ТАТЬЯНА Primary Care Unavailable OLDER, JESUSITA Referring Unavailable GANTA, ТАТЬЯНА Primary Care Unavailable OLDERJESUSITA Referring Unavailable [facility] Unavailable ALESSIO ALEXANDER Attending Unavailable [facility] Unavailable Allergies Allergy Classification Reported Allergen(s) Allergy Type Date of Onset Reaction(s) Facility (20 sources) Amantadine; Translations: [AMANTADINE] Drug Allergy 5 [facility] Work Phone: (20 sources) amLODIPine; Translations: [AMLODIPINE BESYLATE] Drug Allergy 8 [facility] (20 sources) Captopril; Translations: [CAPTOPRIL] Drug Allergy 5 [facility] Work Phone: [phone] (20 sources) Cephalexin; Translations: [CEPHALEXIN] Drug Allergy 5 [facility] Work Phone: (20 sources) Erythromycin; Translations: [ERYTHROMYCIN] Drug Allergy 5 [facility] Work Phone: (20 sources) Iodine; Translations: [IODINE] Drug Allergy 5 [facility] Work Phone: (4 sources) Thiazides; Translations: [THIAZIDES] Propensity to adverse reactions to drug 5 Other: See Comments [facility] Work Phone: (20 sources) Thiazides Propensity to adverse reactions to drug 5 Other: See Comments [facility] Work Phone: Medications Current Medications Medication Drug [...] IF UNABLE, PLEASE REFER TO [facility]. 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 bisphosphonates] Episodic Other aftercare (1 source) care home (current) use of anticoagulants; Translations: [Anticoagulant long-term [...] sources) Long-term current use of anticoagulant; Translations: [care home (current) use of anticoagulants] Onset: 3 01-23-2023 [...] Diastolic blood pressure 67 mm[Hg] Enriqueta Marshall BLINDSTITCH MACHINE OPERATOR.SYBASE DEVELOPER Work Phone: [facility] 06-01-2023 14:33-0500 Heart rate 56 /min Enriqueta Marshall BLINDSTITCH MACHINE OPERATOR.SYBASE DEVELOPER Work Phone: [facility] 06-01-2023 14:33-0500 Systolic blood pressure 181 mm[Hg] Enriqueta Marshall BLINDSTITCH MACHINE OPERATOR.SYBASE DEVELOPER Work Phone: [facility] 06-01-2023 14:26-0500 Body weight 63.5 kg Enriqueta Marshall BLINDSTITCH MACHINE OPERATOR.SYBASE DEVELOPER Work Phone: [facility] 06-01-2023 14:26-0500 Respiratory rate 16 /min Enriqueta Marshall BLINDSTITCH MACHINE OPERATOR.SYBASE DEVELOPER Work Phone: [facility] 05-01-2023 13:59-0400 Diastolic blood pressure 74 mm[Hg] Toshia Older BLINDSTITCH MACHINE OPERATOR.MANAGER MARKET INTELLIGENCE Work Phone: [facility] 05-01-2023 13:59-0400 Heart rate 60 /min Toshia Older BLINDSTITCH MACHINE OPERATOR.MANAGER MARKET INTELLIGENCE Work Phone: [facility] 05-01-2023 13:59-0400 Systolic blood pressure 172 mm[Hg] Toshia Older BLINDSTITCH MACHINE OPERATOR.MANAGER MARKET INTELLIGENCE Work Phone: [facility] 05-01-2023 13:58-0400 Body weight 61.69 kg Toshia Older BLINDSTITCH MACHINE OPERATOR.MANAGER MARK[employer] INTELLIGENCE Work Phone: [facility] 05-01-2023 13:58-0400 Respiratory rate 14 /min Toshia Older BLINDSTITCH MACHINE OPERATOR.MANAGER MARKET INTELLIGENCE Work Phone: [facility] 04-15-2023 15:55-0400 Diastolic blood pressure 78 mm[Hg] Alessio Denbow PA-C Work Phone: [facility] 04-15-2023 15:55-0400 Systolic blood pressure 200 mm[Hg] Alessio Denbow PA-C Work Phone: [facility] 04-15-2023 15:03-0400 Body height 157.5 cm Alessio Denbow PA-C Work Phone: [facility] 04-15-2023 15:03-0400 Body temperature 97.2 [degF] Alessio Denbow PA-C Work Phone: [facility] 04-15-2023 15:03-0400 Body weight 58.97 kg Alessio Denbow PA-C Work Phone: [facility] 04-15-2023 15:03-0400 Heart rate 64 /min Alessio Denbow PA-C Work Phone: [facility] 04-15-2023 15:03-0400 Respiratory rate 12 /min Alessio Denbow PA-C Work Phone: [facility] 04-15-2023 15:03-0400 SaO2% (BldA) [Mass fraction] 99 % Alessio Denbow PA-C Work Phone: [facility] 04-09-2023 12:13-0400 Diastolic blood pressure 72 mm[Hg] Jesusita Older BLINDSTITCH MACHINE OPERATOR.MANAGER MARKET INTELLIGENCE Work Phone: [facility] 04-09-2023 12:13-0400 Systolic blood pressure 189 mm[Hg] Jesusita Older BLINDSTITCH MACHINE OPERATOR.MANAGER MARKET INTELLIGENCE Work Phone: [facility] 04-09-2023 12:03-0400 Body weight 60.78 kg Jesusita Older BLINDSTITCH MACHINE OPERATOR.MANAGER MARKET INTELLIGENCE Work Phone: [facility] 04-09-2023 12:03-0400 Heart rate 60 /min Jesusita Older BLINDSTITCH MACHINE OPERATOR.MANAGER MARKET INTELLIGENCE Work Phone: [facility] 04-09-2023 12:03-0400 Respiratory rate 16 /min Jesusita Older BLINDSTITCH MACHINE OPERATOR.MANAGER MARKET INTELLIGENCE Work Phone: [facility] 04-09-2023 12:03-0400 SaO2% (BldA) [Mass fraction] 99 % Jesusita Older BLINDSTITCH MACHINE OPERATOR.MANAGER MARKET INTELLIGENCE Work Phone: [facility] 01-27-2023 15:24-0400 Body height 157.5 cm Maura Giles MD Work Phone: [facility] 01-27-2023 15:24-0400 Body weight 59.42 kg Maura Giles MD Work Phone: [facility] 01-27-2023 15:24-0400 Diastolic blood pressure 77 mm[Hg] Maura Giles MD Work Phone: [facility] 01-27-2023 15:24-0400 Heart rate 74 /min Maura Giles MD Work Phone: [facility] 01-27-2023 15:24-0400 Respiratory rate 18 /min Maura Giles MD Work Phone: [facility] 01-27-2023 15:24-0400 SaO2% (BldA) [Mass fraction] 99 % Maura Giles MD Work Phone: [facility] 01-27-2023 15:24-0400 Systolic blood pressure 165 mm[Hg] Maura Giles MD Work Phone: [facility] 01-07-2023 13:26-0400 Body height 157.5 cm Jesusita Older BLINDSTITCH MACHINE OPERATOR.MANAGER MARKET INTELLIGENCE Work Phone: [facility] 01-07-2023 13:26-0400 Body temperature 97.81 [degF] Jesusita Older BLINDSTITCH MACHINE OPERATOR.MANAGER MARKET INTELLIGENCE Work Phone: [facility] 01-07-2023 13:26-0400 Body weight 60.33 kg Jesusita Older BLINDSTITCH MACHINE OPERATOR.MANAGER MARK[employer] INTELLIGENCE Work Phone: [facility] 01-07-2023 13:26-0400 Diastolic blood pressure 70 mm[Hg] Jesusita Older BLINDSTITCH MACHINE OPERATOR.MANAGER MARK[employer] INTELLIGENCE Work Phone: [facility] 01-07-2023 13:26-0400 Heart rate 58 /min Jesusita Older BLINDSTITCH MACHINE OPERATOR.MANAGER MARK[employer] INTELLIGENCE Work Phone: [facility] 01-07-2023 13:26-0400 Respiratory rate 12 /min Jesusita Older BLINDSTITCH MACHINE OPERATOR.MANAGER MARKET INTELLIGENCE Work Phone: [facility] 01-07-2023 13:26-0400 SaO2% (BldA) [Mass fraction] 97 % Jesusita Older BLINDSTITCH MACHINE OPERATOR.MANAGER MARKET INTELLIGENCE Work Phone: [facility] 01-07-2023 13:26-0400 Systolic blood pressure 140 mm[Hg] Jesusita Older BLINDSTITCH MACHINE OPERATOR.MANAGER MARKET INTELLIGENCE Work Phone: [facility] 09-10-2022 14:49-0400 Diastolic blood pressure 92 mm[Hg] Татьяна Barnard MD Work Phone: [facility] 09-10-2022 14:49-0400 Systolic blood pressure 160 mm[Hg] Татьяна Barnard MD Work Phone: [facility] 09-10-2022 13:55-0400 Body temperature 97.5 [degF] Татьяна Barnard MD Work Phone: [facility] 09-10-2022 13:55-0400 Body weight 60.33 kg Татьяна Barnard MD Work Phone: [facility] 09-10-2022 13:55-0400 Heart rate 56 /min Татьяна Barnard MD Work Phone: [facility] 09-10-2022 13:55-0400 Respiratory rate 16 /min Татьяна Barnard MD Work Phone: [facility] 09-10-2022 13:55-0400 SaO2% (BldA) [Mass fraction] 100 % Татьяна Barnard MD Work Phone: [facility] 05-07-2022 12:55-0500 Body height 157.5 cm Татьяна Barnard MD Work Phone: [facility] 05-07-2022 12:55-0500 Body weight 56.7 kg Татьяна Barnard MD Work Phone: [facility] 05-07-2022 12:55-0500 Diastolic blood pressure 76 mm[Hg] Татьяна Barnard MD Work Phone: [facility] 05-07-2022 12:55-0500 Heart rate 69 /min Татьяна Barnard MD Work Phone: [facility] 05-07-2022 12:55-0500 Respiratory rate 12 /min Татьяна Barnard MD Work Phone: [facility] 05-07-2022 12:55-0500 SaO2% (BldA) [Mass fraction] 99 % Татьяна Barnard MD Work Phone: [facility] 05-07-2022 12:55-0500 Systolic blood pressure 122 mm[Hg] Татьяна Barnard MD Work Phone: [facility] 04-21-2022 15:21-0400 Diastolic blood pressure 76 mm[Hg] Татьяна Barnard MD Work Phone: [facility] 04-21-2022 15:21-0400 Systolic blood pressure 130 mm[Hg] Татьяна Barnard MD Work Phone: [facility] 04-21-2022 14:33-0400 Body height 157.5 cm Татьяна Barnard MD Work Phone: [facility] 04-21-2022 14:33-0400 Body temperature 98.6 [degF] Татьяна Barnard MD Work Phone: [facility] 04-21-2022 14:33-0400 Body weight 59.42 kg Татьяна Barnard MD Work Phone: [facility] 04-21-2022 14:33-0400 Heart rate 89 /min Татяьна Barnard MD Work Phone: [facility] 04-21-2022 14:33-0400 Respiratory rate 12 /min Татьяна Barnard MD Work Phone: [facility] 04-21-2022 14:33-0400 SaO2% (BldA) [Mass fraction] 98 % Татьяна Barnard MD Work Phone: [facility] 04-09-2022 17:05-0400 Body height 157.5 cm Татьяна Barnard MD Work Phone: [facility] 04-09-2022 17:05-0400 Body temperature 97.39 [degF] Татьяна Barnard MD Work Phone: [facility] 04-09-2022 17:05-0400 Body weight 61.24 kg Татьяна Barnard MD Work Phone: [facility] 04-09-2022 17:05-0400 Diastolic blood pressure 52 mm[Hg] Татьяна Barnard MD Work Phone: [facility] 04-09-2022 17:05-0400 Heart rate 90 /min Татьяна Barnard MD Work Phone: [facility] 04-09-2022 17:05-0400 Respiratory rate 12 /min Татьяна Barnard MD Work Phone: [facility] 04-09-2022 17:05-0400 SaO2% (BldA) [Mass fraction] 98 % Татьяна Barnard MD Work Phone: [facility] 04-09-2022 17:05-0400 Systolic blood pressure 90 mm[Hg] Татьяна Barnard MD Work Phone: [facility] 04-02-2022 15:23-0400 Body weight 59.88 kg Jesusita Older BLINDSTITCH MACHINE OPERATOR.MANAGER MARKET INTELLIGENCE Work Phone: [facility] 04-02-2022 15:23-0400 Diastolic blood pressure 78 mm[Hg] Jesusita Older BLINDSTITCH MACHINE OPERATOR.MANAGER MARKET INTELLIGENCE Work Phone: [facility] 04-02-2022 15:23-0400 Heart rate 90 /min Jesusita Older BLINDSTITCH MACHINE OPERATOR.MANAGER MARKET INTELLIGENCE Work Phone: [facility] 04-02-2022 15:23-0400 Respiratory rate 16 /min Jesusita Older BLINDSTITCH MACHINE OPERATOR.MANAGER MARKET INTELLIGENCE Work Phone: [facility] 04-02-2022 15:23-0400 SaO2% (BldA) [Mass fraction] 99 % Jesusita Older BLINDSTITCH MACHINE OPERATOR.MANAGER MARKET INTELLIGENCE Work Phone: [facility] 04-02-2022 15:23-0400 Systolic blood pressure 122 mm[Hg] Jesusita Older BLINDSTITCH MACHINE OPERATOR.MANAGER MARKET INTELLIGENCE Work Phone: [facility] 03-20-2022 14:44-0400 Body weight 60.33 kg Jesusita Older BLINDSTITCH MACHINE OPERATOR.MANAGER MARK[employer] INTELLIGENCE Work Phone: [facility] 03-20-2022 14:44-0400 Diastolic blood pressure 70 mm[Hg] Jesusita Older BLINDSTITCH MACHINE OPERATOR.MANAGER MARKET INTELLIGENCE Work Phone: [facility] 03-20-2022 14:44-0400 Heart rate 68 /min Jesusita Older BLINDSTITCH MACHINE OPERATOR.MANAGER MARKET INTELLIGENCE Work Phone: [facility] 03-20-2022 14:44-0400 Respiratory rate 16 /min Jesusita Older BLINDSTITCH MACHINE OPERATOR.MANAGER MARKET INTELLIGENCE Work Phone: [facility] 03-20-2022 14:44-0400 Systolic blood pressure 112 mm[Hg] Jesusita Older BLINDSTITCH MACHINE OPERATOR.MANAGER MARKET INTELLIGENCE Work Phone: [facility] 03-10-2022 15:52-0400 Body weight 60.33 kg Татьяна Barnard MD Work Phone: [facility] 03-10-2022 15:52-0400 Diastolic blood pressure 58 mm[Hg] Татьяна Barnard MD Work Phone: [facility] 03-10-2022 15:52-0400 Heart rate 74 /min Татьяна Barnard MD Work Phone: [facility] 03-10-2022 15:52-0400 Respiratory rate 14 /min Татьяна Barnard MD Work Phone: [facility] 03-10-2022 15:52-0400 SaO2% (BldA) [Mass fraction] 99 % Татьяна Barnard MD Work Phone: [facility] 03-10-2022 15:52-0400 Systolic blood pressure 92 mm[Hg] Татьяна Barnard MD Work Phone: [facility] 02-21-2022 14:40-0400 Body height 157.5 cm Татьяна Barnard MD Work Phone: [facility] 02-21-2022 14:40-0400 Body temperature 96.4 [degF] Татьяна Barnard MD Work Phone: [facility] 02-21-2022 14:40-0400 Body weight 57.15 kg Татьяна Barnard MD Work Phone: [facility] 02-21-2022 14:40-0400 Diastolic blood pressure 50 mm[Hg] Татьяна Barnard MD Work Phone: [facility] 02-21-2022 14:40-0400 Heart rate 60 /min Татьяна Barnard MD Work Phone: [facility] 02-21-2022 14:40-0400 Respiratory rate 12 /min Татьяна Barnard MD Work Phone: [facility] 02-21-2022 14:40-0400 SaO2% (BldA) [Mass fraction] 99 % Татьяна Barnard MD Work Phone: [facility] 02-21-2022 14:40-0400 Systolic blood pressure 92 mm[Hg] Татьяна Barnard MD Work Phone: [facility] 12-10-2021 13:00-0400 Body height 159 cm Татьяна Barnard MD Work Phone: [facility] 12-10-2021 13:00-0400 Body weight 60.78 kg Татьяна Barnard MD Work Phone: [facility] 12-10-2021 13:00-0400 Diastolic blood pressure 62 mm[Hg] Татьяна Barnard MD Work Phone: [facility] 12-10-2021 13:00-0400 Heart rate 56 /min Татьяна Barnard MD Work Phone: [facility] 12-10-2021 13:00-0400 Respiratory rate 16 /min Татьяна Barnard MD Work Phone: [facility] 12-10-2021 13:00-0400 Systolic blood pressure 128 mm[Hg] Татьяна Barnard MD Work Phone: [facility] Encounters Encounter Date Encounter Type Care Provider Facility Start: 07-09-2023 End: 07-10-2023 [facility] Facility:[facility] Start: 07-02-2023 End: 07-03-2023 [facility] Facility:[facility] Start: 07-02-2023 End: 07-02-2023 [facility] Facility:[facility] Start: 06-30-2023 End: 06-30-2023 [facility] Facility:[facility] Start: 06-01-2023 End: 06-02-2023 [facility] Facility:[facility] Start: 06-01-2023 End: 06-01-2023 Office outpatient visit 25 minutes Enriqueta Marshall APRN.SYBASE DEVELOPER Work Phone: Internal [facility] Procedures Date Procedure Procedure Detail Performing Clinician Start: 04-09-2023 INFLUENZA VACCINE, P RSV FREE, AGE 65+ YR, HIGH DOSE, QUADRIVALENT (FLUZONE HIGH-DOSE) Jesusita Drake BLINDSTITCH MACHINE OPERATOR.MANAGER MARKET INTELLIGENCE Work Phone: Start: 01-27-2023 Ecg routine ecg w/le ast 12 lds w/i&r Maura Giles MD Work Phone: Start: 01-12-2023 Dxa bone density rex dy 1/> sites axial skel Jesusita Drake BLINDSTITCH MACHINE OPERATOR.MANAGER MARKET INTELLIGENCE Work Phone: Start: 04-21-2022 INFLUENZA SEASONAL QUADRIVALENT HIGH DOSE AGE 65+ Татьяна Barnard MD Work Phone: Start: 03-31-2022 Inf agent det nuclei c acid clostridium amp probe Jesusita Drake BLINDSTITCH MACHINE OPERATOR.MANAGER MARKET INTELLIGENCE Work Phone: Plan of Treatment Date Care Activity Detail Author Start: 04-09-2026 Diabetes Screening [facility] Start: 06-03-2025 DIABETES SCREEN DIABETES SCREEN [facility] Start: 06-03-2025 Diabetes Screening [facility] Start: 04-17-2025 DIABETES SCREEN DIABETES SCREEN [facility] Start: 04-10-2025 DIABETES SCREEN DIABETES SCREEN [facility] Start: 04-03-2025 DIABETES SCREEN DIABETES SCREEN [facility] Start: 03-20-2025 DIABETES SCREEN DIABETES SCREEN [facility] Start: 01-08-2025 DIABETES SCREEN DIABETES SCREEN [facility] Start: 12-13-2024 DIABETES SCREEN DIABETES SCREEN [facility] Start: 06-04-2024 DIABETES SCREEN DIABETES SCREEN [facility] Start: 04-15-2024 RSV Vaccine (1 - 1-d ose 60+ series) RSV Vaccine (1 - 1-dose 60+ series) [facility] Immunizations Immunization Date Immunization Notes Care Provider Michelle novak 04-09-2023 influenza (HD-IIV4) vaccine, age 65+ yr, high dose, quadrivalent, PF (FLUZONE HIGH-DOSE) Jesusita Drake BLINDSTITCH MACHINE OPERATOR.DARSHAN Work Phone: [facility] 04-21-2022 influenza, high-dose , quadrivalent vaccine (FLUZONE HIGH DOSE QUADRIVALENT) Татьяна Barnard MD Work Phone: [facility] Work Phone: 04-21-2022 influenza virus vacc ine, unspecified formulation Татьяна Barnard MD Work Phone: [facility] 04-02-2021 influenza (aIIV4) vaccine, age 65+ yr, quadrivalent, PF (FLUAD QUAD) Brittani Oswald MA [facility] Work Phone: 04-02-2021 influenza, high dose seasonal, preservative-free Татьяна Barnard MD Work Phone: [facility] 08-24-2020 COVID-19 vaccine, fu ll dose (MODERNA) Татьяна Barnard MD Work Phone: [facility] Work Phone: 07-27-2020 COVID-19 vaccine, fu ll dose (MODERNA) Татьяна Barnard MD Work Phone: [facility] Work Phone: 03-08-2020 influenza, injectabl e, quadrivalent, preservative free Татьяна Barnard MD Work Phone: [facility] Work Phone: 03-08-2020 pneumococcal polysaccharide vaccine, 23 valent Татьяна Barnard MD Work Phone: [facility] Work Phone: 03-31-2019 Seasonal trivalent influenza vaccine, adjuvanted, preservative free Brittani Oswald MA [facility] Work Phone: 03-30-2018 Seasonal trivalent influenza vaccine, adjuvanted, preservative free Brittani Oswald MA [facility] Work Phone: 03-30-2017 influenza, high dose seasonal, preservative-free Татьяна Barnard MD Work Phone: [facility] Work Phone: 03-30-2017 influenza, injectabl e, quadrivalent, preservative free Brittani Oswald [facility] Work Phone: 03-30-2017 influenza, seasonal, injectable, preservative free Татьяна Barnard MD Work Phone: [facility] Work Phone: 03-26-2016 influenza, high dose seasonal, preservative-free Татьяна Barnard MD Work Phone: [facility] Work Phone: 01-28-2016 pneumococcal polysaccharide vaccine, 23 valent Татьяна Barnard MD Work Phone: [facility] Work Phone: 04-25-2015 pneumococcal conjuga te vaccine, 13 valent Татьяна Barnard MD Work Phone: [facility] Work Phone: 03-31-2014 influenza virus vacc ine, unspecified formulation Татьяна Barnard MD Work Phone: [facility] 06-07-2013 tetanus toxoid, redu dionicio diphtheria toxoid, and acellular pertussis vaccine, adsorbed Татьяна Barnard MD Work Phone: [facility] 07-15-2011 influenza virus vacc ine, unspecified formulation Татьяна Barnard MD Work Phone: [facility] 04-08-2010 influenza virus vacc ine, unspecified formulation Татьяна Barnard MD Work Phone: [facility] Work Phone: 07-30-2000 pneumococcal polysaccharide vaccine, 23 valent Татьяна Barnard MD Work Phone: [facility] Work Phone: 10-28-1995 diphtheria and tetan us toxoids, adsorbed for pediatric use Татьяна Barnard MD Work Phone: [facility] Work Phone: Payers Date Payer Category Payer Medicare [employer] MEDICARE HU[employer]NA MEDICARE PPO [id number] 2021-Present [phone] [id number] 2021 Medicare HU[employer]NA MEDICARE HU[employer]NA MEDICARE PPO [id number] 2021-Present [phone] [id number] 2021 Medicare [id number] Social History Date Type Detail Facility Start: 10-10-2014 End: 02-21-2022 Tobacco smoking status NHIS Ex-smoker [facility] End: 07-06-1976 History of tobacco use Current smoker [facility] Start: 06-11-2021 End: 06-01-2023 Alcohol intake Current non-drinker of alcohol (finding) [facility] Start: 1935 Sex Assigned At Not on file [facility] Start: 11-30-2021 End: 05-07-2022 Exposure to SARS-CoV-2 (event) Not sure [facility] Work Phone: End: 07-06-1976 History of tobacco use Cigarette Smoker [facility] Work Phone: Start: 10-10-2014 End: 02-21-2022 Tobacco use and exposure Smokeless tobacco non-user [facility] Work Phone: Start: 02-21-2022 Tobacco Comment Quit 4- 5 cig per day [facility] Start: 03-11-2022 End: 04-02-2022 Exposure to SARS-CoV-2 (event) Unable to assess [facility] Start: 06-04-2020 End: 01-07-2023 History of Social function [facility] Work Phone: Start: 06-04-2020 End: 01-07-2023 Tobacco use panel [facility] Work Phone: Adult Depression Screening Assessment 0 [facility] Work Phone: Medical Equipment Procedure Code Equipment Code Equipment Origin al Text Equipment Identifier Dates [id number] Implant - [id number] Start: 12-14-2012 Clinical Notes 12-14-2012 to 07-09-2023 Patient InstructionsBroEnriqueta de los santos APRN.SYBASE DEVELOPER - 06/01/2023 2:20 PM ESTTelephone Encounter - Margie Garcia - 05/07/2023 11:22 AM Toshia Camargo APRN.MANAGER MARKET INTELLIGENCE - 05/01/2023 12:10 PM EDT Note Date & Type Note Facility 07-09-2023 Note HNO ID: [id number] Author: ENRIQUETA MARSHALL APRN.SYBASE DEVELOPER Service: ? Author Type: Nurse Specialist Type: [...] 146/80 09/10/2022 160/92 06/11/2022 110/60 05/07/2022 122/76 Mercury Recoverer: Dr Sewell, has upcoming appointment in October [...] tablet by mouth (more content not included)... [facility] 07-02-2023 Note HNO ID: [id number] Author: ENRIQUETA MARSHALL APRN.SYBASE DEVELOPER Service: ? Author Type: Nurse Specialist Type: [...] 160/92 06/11/2022 110/60 05/07/2022 122/76 04/21/2022 130/76 Mercury Recoverer: Dr Sewell, has upcoming appointment in October EP: Dr Giles. [facility], July appointment. Review of Systems [...] timolol maleate (TIMOPTIC (more content not included)... [facility] 06-30-2023 Note HNO ID: [id number] Author: Enriqueta Marshall APRN.SYBASE DEVELOPER Service: ? Author Type: Nurse Specialist Type: [...] 110/60 05/07/2022 122/76 04/21/2022 130/76 04/09/2022 90/52 Mercury Recoverer: Dr Sewell, has upcoming appointment EP: Dr [...] IF UNABLE, PLEASE REFER TO [facility]. DX: EDEMA latanoprost (XALATAN) 0.005 % ophthalmic solution 1 Drop daily at bedtime. brimonidine-timolol (COMBIGAN) 0.2-0.5 % ophthalmic solution Use in both eyes. T (more content not included)... [facility] 06-01-2023 Note HNO ID: [id number] Author: Enriqueta Marshall APRN.SYBASE DEVELOPER Service: ? Author Type: Nurse Specialist Type: [...] 130/76 04/09/2022 90/52 04/02/2022 122/78 03/20/2022 112/70 Mercury Recoverer: Dr Sewell, has upcoming appointment EP: Dr [...] IF UNABLE, PLEASE REFER TO [facility]. DX: EDEMA latanoprost (XALATAN) 0.005 % [...] keratoderma Lichen sclerosis (more content not included)... [facility] 06-01-2023 Instructions Enriqueta Marshall APRN.CNS - [...] dizzy or fatigued. documented in this encounter [facility] 06-01-2023 History of Presen t illness Narrative [...] 130/76 04/09/2022 90/52 04/02/2022 122/78 03/20/2022 112/70 Mercury Recoverer: Dr Sewell, has upcoming appointment EP: Dr [...] IF UNABLE, PLEASE REFER TO [facility]. DX: EDEMA latanoprost (XALATAN) 0.005 % [...] 2 (age, bleeding) At risk for stroke [id number] = 4 (HTN, age2, female gender) Benign [...] 4 - Moderate documented in this encounter [facility] 05-07-2023 Miscellaneous Notes Patient calling about hydralazine. Advised patient to check with pharmacy. documented in this encounter [facility] 05-01-2023 Note HNO ID: [id number] Author: Toshia Drake APRN.MANAGER MARKET INTELLIGENCE Service: ? Author Type: Nurse Practitioner Type: [...] afternoon. She had an appointment with her crap game box person yesterday, BP was 130/68. She brought her [...] 2 (age, bleeding) At risk for stroke [id number] = 4 (HTN, age2, female gender) Benign [...] May. right eye Jun. left eye - [facility] . Dr Gao REPAIR FIRST [...] IF UNABLE, PLEASE REFER TO [facility]. DX: EDEMA latanoprost (XALATAN) 0.005 % ophthalmic solution 1 Drop daily at bedtime. clob (more content not included)... [facility] 05-01-2023 History of Presen t illness [...] afternoon. She had an appointment with her crap game box person yesterday, BP was 130/68. She brought her [...] 2 (age, bleeding) At risk for stroke [id number] = 4 (HTN, age2, female gender) Benign [...] - May. right eye left eye - [facility] . Dr Gao REPAIR FIRST [...] IF UNABLE, PLEASE REFER TO [facility]. DX: EDEMA latanoprost (XALATAN) 0.005 % [...] Toshia Drake APRN.CNP documented in this encounter [facility] 04-15-2023 Note HNO ID: [id number] Author: Alessio Alexander PA-C Service: ? Author Type: Physician Drop Clipper Type: Progress Notes Filed: 04/15/2023 5:01 PM Note Text: CC: Patient presents with: Follow Up: blood pressure- elevated and check home bp monitor HPI Reinier Stoner is a 87 year old female who presents today for 1 week follow-up elevated blood pressure, and wanting to f/u on XR thoracic spine. Last visit was on 04/09/2023 with Jesusita Drkae CNP and at that time blood pressure [...] 2 (age, bleeding) At risk for stroke [id number] = 4 (HTN, age2, female gender) Benign [...] Glaucoma - right eye left eye - [facility] . Dr Gao REPAIR FIRST [...] IF UNABLE, PLEASE REFER TO [facility]. DX: EDEMA latanoprost (XALATAN) 0.005 % [...] Onset Heart Mother (more content not included)... [facility] 04-15-2023 Instructions Alessio Alexander PA-C - 04/15/2023 3:45 PM EDT TrueBP average on the machine 217/67 - left arm sitting. Manual recheck 200/78 Continue on Carvedilol 12.5 mg twice daily, Losartan 50 mg twice daily. Will increase hydralazine to 10 mg three times daily. documented in this encounter [facility] 04-15-2023 History of Presen t illness Narrative [...] 2 (age, bleeding) At risk for stroke [id number] = 4 (HTN, age2, female gender) Benign [...] - right eye Jun. left eye - [facility] . Dr Gao REPAIR FIRST [...] IF UNABLE, PLEASE REFER TO [facility]. DX: EDEMA latanoprost (XALATAN) 0.005 % [...] Alessio Alexander PA-C documented in this encounter [facility] 04-15-2023 Nurse Note Home BP monitor left arm :Error code E2, patient did not bring monitor book with her to know what the error code is documented in this encounter [facility] 04-10-2023 Miscellaneous Notes TC to patient who verbalized understanding of providers message below and has no questions at this time. FREDDY Chavez ----- Message from Jesusita Drake APRN.MANAGER MARKET INTELLIGENCE sent at 04/10/2023 6:59 AM EDT ----- Please let patient know blood work is all within acceptable ranges. HgbA1c is now in normal range Thank you Jesusita Drake APRN.MANAGER MARKET INTELLIGENCE documented in this encounter [facility] 04-09-2023 Note HNO ID: [id number] Author: Kirstie Arguello, RT(R) Service: Radiology Author [...] Arguello RT(R) April 09, 2023 1:18 PM [facility] 04-09-2023 Note HNO ID: [id number] Author: Jesusita Drake APRN.MANAGER MARKET INTELLIGENCE Service: ? Author Type: Nurse Practitioner Type: [...] 2 (age, bleeding) At risk for stroke [id number] = 4 (HTN, age2, female gender) Benign [...] Glaucoma - right eye left eye - [facility] . Dr Gao REPAIR FIRST [...] IF UNABLE, PLEASE REFER TO [facility]. DX: EDEMA alendronate (FOSAMAX) 70 mg [...] mg tablet T (more content not included)... [facility] 04-09-2023 Instructions Jesusita Drake APRN.MANAGER MARKET INTELLIGENCE - 04/09/2023 12:49 PM EDT Please take over the counter Vit d 3 2000 IU daily and get 0971-5475 mg per day calcium. Calcium is best [...] fat, 8 ounces 415 mg per serving Waldron juice, calcium-fortified, 6 ounces 375 mg per [...] calcium sulfate, cup 253 mg per serving Ripley, pink, canned, solids with bone, 3 ounces 181 mg per serving Cottage cheese, 1% milk fat, 1 cup 138 mg per serving Instant breakfast drink, various flavors and brands, powder prepared with water, 8 ounces 105-250 mg per serving Frozen yogurt, vanilla, soft serve, cup 103 mg per serving Mtzfm-vc-sfn cereal, calcium-fortified, 1 cup 100-1,000 mg per serving Turnip greens, fresh, boiled, cup 99 mg per serving Kale, fresh, cooked, 1 cup 94 mg per serving Kale, raw, chopped, 1 cup 90 mg per serving Tofu, soft, made with calcium sulfate, cup 138 mg per serving Ice cream, vanilla, cup 84 mg per serving Soy beverage, calcium-fortified, 8 ounces 80-500 mg per serving Grenadian cabbage, bok [place], raw, shredded, 1 cup 74 mg per serving Bread, white, 1 slice 73 mg per serving Pudding, chocolate, ready to eat, refrigerated, 4 ounces 55 mg per serving Tortilla, corn, mxwha-cm-acyc/porter, one 6 diameter 46 mg per serving Tortilla, flour, fmmmr-dh-aqil/porter, one 6 diameter 32 mg per serving Sour cream, reduced fat, cultured, 2 tablespoons 31 mg per serving Bread, whole-wheat, 1 slice 30 mg per serving Broccoli, raw, cup 21 mg per serving Cheese, cream, regular, 1 tablespoon 14 mg per serving documented in this encounter [facility] 04-09-2023 History of Presen t illness Narrative [...] 2 (age, bleeding) At risk for stroke [id number] = 4 (HTN, age2, female gender) Benign [...] May. right eye Jun. left eye - [facility] . Dr Gao REPAIR FIRST [...] IF UNABLE, PLEASE REFER TO [facility]. DX: EDEMA alendronate (FOSAMAX) 70 mg [...] occur. Patient agreeable to treatment plan. Jesusita Darke APRN.CNP documented in this encounter [facility] 03-23-2023 Miscellaneous Notes Patient has been identified [...] advise. Allyson Gaxiola documented in this encounter [facility] 02-20-2023 Miscellaneous Notes Patient has been identified [...] Margie Morgan Pss documented in this encounter [facility] 02-04-2023 Miscellaneous Notes Noted Jesusita Drake APRN.CNP [...] until her 04/09/23 appointment with Jesusita Drake [employer] UNDERWRITER and discuss it then. Cheryl George RN [...] Brianne Toribio RN documented in this encounter [facility] 01-27-2023 Note HNO ID: [id number] Author: Maura Giles MD Service: ? Author Type: Physician Type: Progress Notes Filed: 02/02/2023 7:41 PM Note Text: PRIMARY CARE PHYSICIAN: Татьяна Barnard [address] [place] [address] REFERRING PHYSICIAN: Fredis Marie MD ([facility]) [address] [place] [address] [facility] [address] Patient Care Team: Татьяна Barnard MD as PCP - General (Internal Medicine) Fredis Marie as Specialty Invoice Checker (Cardiology) Yuriy Collins DO as Specialty Invoice Checker (Gastroenterology) CHIEF COMPLAINT: Evaluation for stroke prevention HISTORY OF PRESENT ILLNESS: Ms. Stoner is a 87 year old female who presents today for evaluation, referred by [facility], accompanied today by her daughter. [...] May. right eye Jun. left eye - [facility] . Dr Gao REPAIR FIRST [...] mouth twice da (more content not included)... [facility] 01-27-2023 History of Presen t illness Narrative PRIMARY CARE PHYSICIAN: Татьяна Barnard [address] [place] [address] REFERRING PHYSICIAN: Fredis Marie MD ([facility]) [address] [facility] [address] [facility] [address] Patient Care Team: Татьяна Barnard MD as PCP - General (Internal Medicine) Cynthia, Fredis Salazar as Specialty Invoice Checker (Cardiology) Yuriy Collins DO as Specialty Invoice Checker (Gastroenterology) CHIEF COMPLAINT: Evaluation for stroke prevention HISTORY OF PRESENT ILLNESS: Ms. Stoner is a 87 year old female who presents today for evaluation, referred by [facility], accompanied today by her daughter. [...] - May. right eye left eye - [facility] . Dr Gao REPAIR FIRST [...] IF UNABLE, PLEASE REFER TO [facility]. DX: EDEMA latanoprost (XALATAN) 0.005 % [...] bradycardia 54 bpm; PACs; normal conduction intervals (OK 192 ms, QRS 88 ms); QTc 403 [...] old 1 History of hypertension IMPRESSION: Ms. Sotner has permanent atrial fibrillation that is not [...] non-implanting physician -- either PCP or general press bucker or GI specialist that outlines the rationale [...] the input from GI, PCP and general press bucker in this regard but as I stated [...] literature and also directed them to the [facility] website for additional educational information. They will give this option consideration, and if they determined they would like to pursue Watchman implant AND her physicians including Dr. Collins consider the risk:benefit of terminal operator oral anticoagulation therapy to be unfavorable, then [...] 4 - Moderate documented in this encounter [facility] 01-27-2023 Nurse Note Patient denies any cardiac issues or symptoms. documented in this encounter [facility] 01-12-2023 Note HNO ID: [id number] Author: RT Bernadette(R) Service: ? Author Type: [...] RT Bernadette(R) January 12, 2023 1:56 PM [facility] 01-12-2023 History of Presen t illness [...] 2023 1:56 PM documented in this encounter [facility] 01-07-2023 Note HNO ID: [id number] Author: Jesusita Drake APRN.MANAGER MARKET INTELLIGENCE Service: ? Author Type: Nurse Practitioner Type: [...] May. right eye Jun. left eye - [facility] . Dr Gao REPAIR FIRST [...] IF UNABLE, PLEASE REFER TO [facility]. DX: EDEMA latanoprost (XALATAN) 0.005 % ophthalmic solution 1 Drop daily at bedtime. clobetasol (TEMOVATE) 0.05 % ointment Apply 1 application to affected area 3 times a WEEK. TO AFFECTED AREA. brimonidine-timolol (COMBIGAN) 0.2-0.5 % ophthalmic solution Use in both eyes. TRAVATAN Z 0.004 % Drop daily at (more content not included)... [facility] 01-07-2023 History of Presen t illness [...] May. right eye Jun. left eye - [facility] . Dr Gao REPAIR FIRST [...] IF UNABLE, PLEASE REFER TO [facility]. DX: EDEMA latanoprost (XALATAN) 0.005 % [...] Jesusita Drake APRN.CNP documented in this encounter [facility] 12-16-2022 Miscellaneous Notes Please see Kayla Grace's [...] when she needs to stop it. Kayla Garce APRN.CNP Pharmacy generated refill request. Last seen 10/29/21 Requested Prescriptions Pending Prescriptions Disp Refills alendronate (FOSAMAX) 70 mg tablet [Pharmacy Med Name: ALENDRONATE SODIUM 70 MG TAB] 12 tablet 3 Sig: take 1 tablet by mouth every week Margie Wheeler RN documented in this encounter [facility] 12-10-2022 Note HNO ID: [id number] Author: Jesusita Drake APRN.CNP Service: ? Author [...] vomiting, or abdominal pain. Last Hgb at [facility] was over 11 which was improved since prior to EGD. Because of this, patient is being recommended to a physician in [place] to have a possible watchman procedure completed [...] Glaucoma - right eye left eye - [facility] . Dr Gao REPAIR FIRST [...] TO AFFECTED A (more content not included)... [facility] 10-10-2022 Miscellaneous Notes Patient notified. ----- [...] Татьяна Barnard MD documented in this encounter [facility] 10-08-2022 Miscellaneous Notes I sent pot chl tablets as requested regularly a Patient calling regarding her potassium chloride 10mEq prescription. Patient states capsules were ordered for her yesterday and she is requesting tablets. Please send order to Marla Khan. Thank you. documented in this encounter [facility] 10-07-2022 Note HNO ID: [id number] Author: Татьяна Barnard MD Service: ? Author [...] an upcoming EGD by Dr. Collins the help desk engineer. No problem-specific Assessment AND Plan notes found [...] May. right eye Jun. left eye - [facility] . Dr Gao REPAIR FIRST [...] No dysphagia/odynophagia, probl (more content not included)... [facility] 09-10-2022 Note HNO ID: [id number] Author: Татьяна Barnard MD Service: ? Author [...] - May. right eye left eye - [facility] . Dr Gao REPAIR FIRST [...] abnormalities Eyes: Anicteric (more content not included)... [facility] 09-10-2022 History of Presen t illness [...] - May. right eye left eye - [facility] . Dr Gao REPAIR FIRST [...] Татьяна Barnard MD documented in this encounter [facility] 08-04-2022 Miscellaneous Notes Pt called and is [...] call and advise. documented in this encounter [facility] 07-02-2022 Miscellaneous Notes Patient calling back Dr [...] Collins's office. States she seen Celeste Bell VA UNDERWRITER in Dr. Collins's office GI. Her press bucker is Dr. Frey. Stool test was positive for blood and blood counts slowly decreasing. Looks like she was referred to GI in the past, she needs to call and be seen with them MARIIA especially since on the Xarelto from cardiology for her a. Fib. Can we also find out who she sees for GI and cardiology? Thanks documented in this encounter [facility] 07-01-2022 Miscellaneous Notes Pt requesting 90 day [...] Felicity Sprague LPN documented in this encounter [facility] 06-13-2022 Miscellaneous Notes No TSH level in [...] Pt daughter, Jessa, calling to state pt's press bucker wanted thyroid levels rechecked. Pt is coming into office early next week to have labs drawn for PCP (CMP, CBC). Jessa asking if PCP will add thyroid labs on so pt get it all done with 1 lab drawn. Advised PCP is out of office until Thursday. Please advise and notify Jessa. Richie Johnson LPN documented in this encounter [facility] documented as of this encounter (statuses as of 01/28/2023) [facility]12-01-2022 History of Past illness Narrative* Problem Noted [...] of this encounter (statuses as of 02/03/2023) [facility]12-01[facility] History of Past illness Narrative* Problem Noted [...] of this encounter (statuses as of 02/04/2023) [facility]01[facility] History of Past illness Narrative* Problem Noted [...] of this encounter (statuses as of 02/20/2023) [facility] History of Past illness Narrative* Problem Noted [...] of this encounter (statuses as of 03/23/2023) [facility] History of Past illness Narrative* Problem Noted [...] of this encounter (statuses as of 04/10/2023) [facility] History of Past illness Narrative* Problem Noted [...] of this encounter (statuses as of 04/15/2023) [facility] History of Past illness Narrative* Problem Noted [...] of this encounter (statuses as of 04/16/2023) [facility] History of Past illness Narrative* Problem Noted [...] of this encounter (statuses as of 05/03/2023) [facility] History of Past illness Narrative* Problem Noted [...] of this encounter (statuses as of 05/05/2023) [facility]-01[facility] History of Past illness Narrative* Problem Noted [...] of this encounter (statuses as of 05/07/2023) [facility]-01[facility] History of Past illness Narrative* Problem Noted [...] of this encounter (statuses as of 06/02/2023) [facility]11-09-2022 History of Present illness Narrative* Татьяна Barnard [...] May. right eye Jun. left eye - [facility] . Dr Gao REPAIR FIRST [...] control. Татьяна Barnard MD [facility] History of Present illness Narrative* Татьяна Barnard [...] - May. right eye left eye - [facility] . Dr Gao REPAIR FIRST [...] control. Татьяна Barnard MD documented in [facility]Prem[facility] Miscellaneous Notes* Telephone Encounter - Татьяна Barnard [...] for possible early pneumonia. documented [facility]Prem[facility] Miscellaneous Notes* Telephone Encounter - Joyce Dewey [...] day appt with pcp. documented in this encounterPrem[facility] Miscellaneous Notes* Telephone Encounter - Olga Juarez LPN - 04/10/2022 11:39 AM EDT Patient currently getting xray now * Telephone Encounter - Jesusita Drake APRN.CNP - 04/10/2022 11:34 AM EDT Patient saw Dr. Barnard yesterday and was told to have follow up chest xray for continued cough. Order placed. Jesusita Drake APRN.CNP documented in [facility] encounter[facility] History of Present illness Narrative* Татьяна Barnard [...] Glaucoma - right eye left eye - [facility] . Dr Gao REPAIR FIRST [...] BLD Татьяна Barnard MD documented in this encounterPrem[facility] Miscellaneous Notes* Telephone Encounter - Haydee Mccauley [...] cardiology as requested. Thank you Jesusita Drake APRN.MANAGER MARKET INTELLIGENCE * Telephone Encounter - Brianne Toribio RN [...] Squires. Faxed to Tex Squires CNP at [phone]. Brianne Toribio RN documented in this encounterPrem[facility] Miscellaneous Notes* Telephone Encounter - Haydee Mccauley [...] you Jesusita Drake APRN.CNP documented in this encounterPrem[facility] History of Present illness Narrative* Jesusita Drake [...] Glaucoma - right eye left eye - [facility] . Dr Gao REPAIR FIRST [...] IF UNABLE, PLEASE REFER TO [facility]. DX: EDEMA latanoprost (XALATAN) 0.005 % [...] 65+ Completed DATA REVIEWED: Outside chart from [facility] reviewed. ASSESSMENT/PLAN: 1. Acute cough - ICD9: [...] plan. Jesusita Drake APRN.CNP documented in [facility] encounterPrem[facility] Miscellaneous Notes* Telephone Encounter - Jesusita Drake APRN.CNP - 03/31/2022 7:24 AM EDT Reviewed in appointment today. Jesusita Drake APRN.CNP * Telephone Encounter - Abimbola Abbott LPN - 03/28/2022 4:34 PM EDT Patient daughter Verona Ragland returned call and went over notes from Jesusita Drake [employer] UNDERWRITER with understanding. Daughter said mother told her [...] Jessa calls and states patient had see press bucker Tex Squires. Tex has some concerns that [...] advise, Yolette Pérez RN documented in this encounterPrem[facility] Miscellaneous Notes* Telephone Encounter - Haydee Mccauley [...] you Jesusita Drake APRN.CNP documented in this encounterPrem[facility]09[facility] History of Present illness Narrative* Jesusita Drake [...] this office with average BP's in the [id number] range. . Last 3 Encounter BP Readings: [...] Glaucoma - right eye left eye - [facility] . Dr Gao REPAIR FIRST [...] IF UNABLE, PLEASE REFER TO [facility]. DX: EDEMA latanoprost (XALATAN) 0.005 % [...] plan. Jesusita Drake APRN.CNP documented in this encounterPrem[facility] Miscellaneous Notes* Telephone Encounter - Shanita West [...] patient. Alessio Betancourt Pss documented in this encounterPrem[facility] History of Present illness Narrative* Татьяна Barnard [...] - May. right eye left eye - [facility] . Dr Gao REPAIR FIRST [...] DIFF Татьяна Barnard MD documented in this encounterPrem[facility]08[facility] History of Present illness Narrative* Татьяна Barnard [...] - May. right eye left eye - [facility] . Dr Gao REPAIR FIRST [...] sweating. Татьяна Barnard MD documented in this encounterPrem[facility]08-[facility] Miscellaneous Notes* Telephone Encounter - Richie Talamantes [...] who patient spoke with, General Surgery in [place] will see patient. left patient message to call and schedule. Gave direct number [phone]. Richie Fernandes documented in this encounterPrem[facility] Miscellaneous Notes* Telephone Encounter - Alessio Head - 01/25/2022 12:08 PM EDT T/c to pt, she stated that she was not interested in scheduling at this time. She is following up with a kidney doctor and GI specialist at the [facility]. Thank you, Alessio Head * Telephone Encounter - Olga Juarez LPN - 01/09/2022 10:37 AM EDT Left message to return call to schedule. * Telephone Encounter - Татьяна Barnard MD - 01/08/2022 11:33 PM EDT Please set reinier up to see us in the next couple weeks for her results Regards, Татьяна Barnard MD documented in this encounterPrem[facility]07-23-2022 Miscellaneous Notes* Telephone Encounter - Yolette Caban - 01/18/2022 12:45 PM EDT Spoke with patient and she does not want to see a help desk engineer outside of [place]. Patient will call [facility] to schedule locally. Yolette Caban * [...] to schedule appt with general surgery at [facility], but they would not let her schedule, [...] test. Toshia Drake APRN.CNP documented in this encounterPremier Health [facility]07-21-2022 Miscellaneous Notes* Telephone Encounter - Kayla Grace APRN.CNP - 01/16/2022 12:38 PM EDT Vitamin D level ordered to be drawn with next lab draw. Kayla Grace APRN.CNP * Telephone Encounter - Claire Estes RN - 01/16/2022 10:28 AM EDT Refill request received from pharmacy. Patient last seen in the office on 10/29/21. Claire Estes RN documented in this encounterPrem[facility]06-29-2022 Miscellaneous Notes* Telephone Encounter - Yany Garza [...] you Jesusita Drake APRN.CNP documented in this encounterPrem[facility]06-14-2022 History of Present illness Narrative* Татьяна Barnard [...] May. right eye Jun. left eye - [facility] . Dr Gao REPAIR FIRST [...] May. right eye Jun. left eye - [facility] . Dr Gao REPAIR FIRST [...] BLD Татьяна Barnard MD documented in this encounterPremier [facility]03-28-2022 Miscellaneous Notes* Telephone Encounter - Cheryl George [...] Please call and advise. documented in this encounterPremier [facility]06-18-2013 History of Past illness Narrative* Problem Noted [...] of this encounter (statuses as of 09/23/2021) [facility] History of Past illness Narrative* Problem Noted [...] of this encounter (statuses as of 12/10/2021) [facility] History of Past illness Narrative* Problem Noted [...] of this encounter (statuses as of 12/25/2021) [facility] History of Past illness Narrative* Problem Noted [...] of this encounter (statuses as of 01/16/2022) [facility] History of Past illness Narrative* Problem Noted [...] of this encounter (statuses as of 01/18/2022) [facility] History of Past illness Narrative* Problem Noted [...] of this encounter (statuses as of 01/25/2022) [facility] History of Past illness Narrative* Problem Noted [...] of this encounter (statuses as of 02/21/2022) [facility] History of Past illness Narrative* Problem Noted [...] of this encounter (statuses as of 03/10/2022) [facility] History of Past illness Narrative* Problem Noted [...] of this encounter (statuses as of 03/12/2022) [facility] History of Past illness Narrative* Problem Noted [...] of this encounter (statuses as of 03/14/2022) [facility] History of Past illness Narrative* Problem Noted [...] of this encounter (statuses as of 03/20/2022) [facility] History of Past illness Narrative* Problem Noted [...] of this encounter (statuses as of 03/21/2022) [facility] of Past illness Narrative* Problem Noted [...] of this encounter (statuses as of 04/02/2022) [facility] of Past illness Narrative* Problem Noted [...] of this encounter (statuses as of 04/02/2022) [facility] of [facility] illness Narrative* Problem Noted [...] of this encounter (statuses as of 04/02/2022) [facility] of [facility] illness Narrative* Problem Noted [...] of this encounter (statuses as of 04/04/2022) [facility] of [facility] illness Narrative* Problem Noted [...] of this encounter (statuses as of 04/10/2022) [facility] of Past illness Narrative* Problem Noted [...] of this encounter (statuses as of 04/10/2022) [facility] History of [facility] illness Narrative* Problem Noted [...] of this encounter (statuses as of 04/11/2022) [facility] of [facility] illness Narrative* Problem Noted [...] of this encounter (statuses as of 04/14/2022) [facility] of Past illness Narrative* Problem Noted [...] of this encounter (statuses as of 04/21/2022) [facility] of [facility] illness Narrative* Problem Noted [...] of this encounter (statuses as of 05/07/2022) [facility] History of Past illness Narrative* Problem Noted [...] of this encounter (statuses as of 06/13/2022) [facility] of Past illness Narrative* Problem Noted [...] of this encounter (statuses as of 07/03/2022) [facility] of [facility] illness Narrative* Problem Noted [...] of this encounter (statuses as of 07/03/2022) [facility] of [facility] illness Narrative* Problem Noted [...] of this encounter (statuses as of 08/05/2022) [facility] of [facility] Narrative* Problem Noted [...] of this encounter (statuses as of 09/10/2022) [facility] of [facility] Narrative* Problem Noted [...] of this encounter (statuses as of 10/09/2022) [facility] of [facility] illness Narrative* Problem Noted [...] of this encounter (statuses as of 10/11/2022) [facility] of [facility] illness Narrative* Problem Noted [...] of this encounter (statuses as of 12/17/2022) [facility] of Past illness Narrative* Problem Noted [...] of this encounter (statuses as of 01/08/2023) [facility] Diagnosis Encounter for Medicare annual wellness exam- Primary Routine general medical examination at a health care facility Mixed hyperlipidemia Essential hypertension Unspecified essential hypertension Hypothyroidism, unspecified type documented in this encounter [facility]* Diagnosis Hypertensive kidney disease with stage 3b chronic kidney disease (HCC)- Primary documented in this encounter [facility]* Diagnosis History of osteoporosis- Primary Personal history of other musculoskeletal disorders care home use of alendronate therapy documented in this encounter [facility]* Diagnosis Anemia, unspecified type- Primary Positive fecal occult blood test Nonspecific abnormal finding in stool contents documented in this encounter [facility] Diagnosis Sweating profusely- Primary Generalized hyperhidrosis Essential hypertension Unspecified essential hypertension Hypotension, unspecified hypotension type Chest pain, unspecified type Diarrhea, unspecified type documented in this encounter [facility] Diagnosis Essential hypertension- Primary Unspecified essential hypertension Hypothyroidism, unspecified type Persistent atrial fibrillation (HCC) Atrial fibrillation Other fatigue [facility]* Diagnosis Nausea Nausea alone documented in this encounter [facility] note* Diagnosis Acute cough- Primary Nausea Nausea alone Diarrhea, unspecified type Fatigue, unspecified type Anemia, unspecified type documented in this encounter [facility] note* Diagnosis Diarrhea, unspecified type- Primary documented in this encounter [facility] note* Diagnosis Acute cough- Primary Hypokalemia Hypopotassemia Shortness of breath Nausea Nausea alone Edema of both lower extremities documented in this encounter [facility] note* Diagnosis Congestive heart failure, unspecified HF chronicity, unspecified heart failure type (HCC)- Primary Essential hypertension Unspecified essential hypertension Mixed hyperlipidemia Pedal edema Edema Acute cough Hypokalemia Hypopotassemia Hypothyroidism, unspecified type documented in this encounter [facility] note* Diagnosis Acute cough- Primary documented in this encounter [facility] note* Diagnosis Hypotension, unspecified hypotension type- Primary GERI (acute kidney injury) (HCC) Acute kidney failure, unspecified documented in this encounter [facility] note* Diagnosis Anemia, unspecified type- Primary documented in this encounter [facility] note* Diagnosis Pleural effusion- Primary Unspecified pleural effusion Hypothyroidism, unspecified type Atelectasis Pulmonary collapse History of recent pneumonia Need for influenza vaccination Need for prophylactic vaccination and inoculation against influenza Anemia, unspecified type Congestive heart failure, unspecified HF chronicity, unspecified heart failure type (HCC) Stage 3b chronic kidney disease (HCC) documented in this encounter [facility] note* Diagnosis Pulmonary hypertension (HCC)- Primary Other chronic pulmonary heart diseases Pedal edema Edema Permanent atrial fibrillation (HCC) Atrial fibrillation Mixed hyperlipidemia Hypertensive kidney disease with stage 3b chronic kidney disease (HCC) Essential hypertension Unspecified essential hypertension Stage 3a chronic kidney disease (HCC) documented in this encounter [facility] note* Diagnosis Anemia, unspecified type- Primary Essential hypertension Unspecified essential hypertension Permanent atrial fibrillation (HCC) Atrial fibrillation Hypothyroidism, unspecified type Fatigue, unspecified type documented in this encounter [facility] note* Diagnosis Essential hypertension- Primary Unspecified essential hypertension 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, subsequent encounter documented in this encounter [facility] note* Diagnosis Permanent atrial fibrillation (HCC)- Primary Atrial fibrillation At risk for stroke Other specified personal history presenting hazards to health Anticoagulant long-term use Long-term (current) use of anticoagulants At risk for bleeding associated with anticoagulants History of GI bleed Personal history of other diseases of digestive system documented in this encounter [facility]* Diagnosis Age related osteoporosis, unspecified pathological fracture presence- Primary documented in this encounter [facility] note* Diagnosis Nausea Nausea alone documented in this encounter [facility] note* Diagnosis Hypertensive kidney disease with stage 3b chronic kidney disease (HCC)- Primary Mixed hyperlipidemia Osteoporosis without current pathological fracture, unspecified osteoporosis type Mid back pain Backache, unspecified Hypothyroidism, unspecified type Elevated hemoglobin A1c Other abnormal blood chemistry Need for influenza vaccination Need for prophylactic vaccination and inoculation against influenza documented in this encounter [facility] note* Diagnosis Hypertensive kidney disease with stage 3b chronic kidney disease (HCC)- Primary documented in this encounter [facility] note* Diagnosis 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, subsequent encounter documented in this encounter [facility] note* Diagnosis Essential hypertension- Primary Unspecified essential hypertension documented in this encounter [facility] note* Diagnosis Hypertensive kidney disease with stage 3b chronic kidney disease (HCC) documented in this encounter [facility]Reason for referral (narrative)* Diagnostic Procedure Only (Routine) - Closed Specialty Diagnoses / Procedures Referred By Jalen monreal Referred To Contact XR IMAGING Diagnoses Osteoporosis without current pathological fracture, unspecified osteoporosis type Mid back pain Procedures XR THORACIC GENERAL 3V AP/LAT/SWIMMERS RADEX SPINE THORACIC 3 VIEWS Jesusita Drake APRN.[employer] [address] [place] [address] Xr Imaging [id number] Referral ID Status Reason Start Date Expiration Date V isits Requested Visits Authorized [id number] Closed Auto-Generate d Referral 04/09/2023 05/08/2024 1 1 [facility] Reason for Referral Specialty Diagnoses / Procedures Referred By Jalen monreal Referred To Contact Gastroenterology Diagnoses Anemia, unspecified type Positive fecal occult blood test Procedures CONSULT TO GASTROENTEROLOGY OFFICE/OUTPATIENT NEW HIGH MDM 60-74 MINUTES Toshia Drake APRN.[employer] [address] [place] [address] Referral ID Status Reason Start Date Expiration Date Visits Requested Visits Authorized [id number] Authorized PCP Requested Referral 01/17/2022 01/17/2023 1 1 Specialty Diagnoses / Procedures Referred By Contac t Referred To Contact General Surgery Diagnoses Anemia, unspecified type Positive fecal occult blood test Procedures CONSULT TO GENERAL SURGERY OFFICE/OUTPATIENT NEW HIGH MDM 60-74 MINUTES Older, DAVID Pope.[employer] [address] [place] [address] Referral ID Status Reason Start Date Expiration Date Visits Requested Visits Authorized [id number] Authorized PCP Requested Referral 01/15/2022 01/15/2023 1 1 Specialty Diagnoses / Procedures Referred By Contac t Referred To Contact Endocrinology Diagnoses Age related osteoporosis, unspecified pathological fracture presence Procedures CONSULT TO ENDOCRINOLOGY OFFICE/OUTPATIENT NEW HIGH MDM 60-74 MINUTES Older, DAVID Mc.[employer] [address] [place] [address] Referral ID Status Reason Start Date Expiration Date Visits Requested Visits Authorized [id number] Authorized PCP Requested Referral 02/02/2023 02/02/2024 1 [...] or prosecute any alcohol or drug abuse patient.[facility] SouthIn the event this information is protected by the Federal Confidentiality of Alcohol and Drug Abuse Patient Records regulations: The Federal rules restrict any use of the information to criminally investigate or prosecute any alcohol or drug abuse patient.[facility] SouthIn the event this information is protected by the Federal Confidentiality of Alcohol and Drug Abuse Patient Records regulations: The Federal rules restrict any use of the information to criminally investigate or prosecute any alcohol or drug abuse patient.[facility] SouthIn the event this information is protected by the Federal Confidentiality of Alcohol and Drug Abuse Patient Records regulations: The Federal rules restrict any use of the information to criminally investigate or prosecute any alcohol or drug abuse patient.[facility] SouthIn the event this information is protected by the Federal Confidentiality of Alcohol and Drug Abuse Patient Records regulations: The Federal rules restrict any use of the information to criminally investigate or prosecute any alcohol or drug abuse patient.[facility] SouthIn the event this information is protected by the Federal Confidentiality of Alcohol and Drug Abuse Patient Records regulations: The Federal rules restrict any use of the information to criminally investigate or prosecute any alcohol or drug abuse patient.[facility] SouthIn the event this information is protected by the Federal Confidentiality of Alcohol and Drug Abuse Patient Records regulations: The Federal rules restrict any use of the information to criminally investigate or prosecute any alcohol or drug abuse patient.[facility] SouthIn the event this information is protected by the Federal Confidentiality of Alcohol and Drug Abuse Patient Records regulations: The Federal rules restrict any use of the information to criminally investigate or prosecute any alcohol or drug abuse patient.[facility] SouthIn the event this information is protected by the Federal Confidentiality of Alcohol and Drug Abuse Patient Records regulations: The Federal rules restrict any use of the information to criminally investigate or prosecute any alcohol or drug abuse patient.[facility] SouthIn the event this information is protected by the Federal Confidentiality of Alcohol and Drug Abuse Patient Records regulations: The Federal rules restrict any use of the information to criminally investigate or prosecute any alcohol or drug abuse patient.[facility] SouthIn the event this information is protected by the Federal Confidentiality of Alcohol and Drug Abuse Patient Records regulations: The Federal rules restrict any use of the information to criminally investigate or prosecute any alcohol or drug abuse patient.[facility] SouthIn the event this information is protected by the Federal Confidentiality of Alcohol and Drug Abuse Patient Records regulations: The Federal rules restrict any use of the information to criminally investigate or prosecute any alcohol or drug abuse patient.[facility] SouthIn the event this information is protected by the Federal Confidentiality of Alcohol and Drug Abuse Patient Records regulations: The Federal rules restrict any use of the information to criminally investigate or prosecute any alcohol or drug abuse patient.[facility] SouthIn the event this information is protected by the Federal Confidentiality of Alcohol and Drug Abuse Patient Records regulations: The Federal rules restrict any use of the information to criminally investigate or prosecute any alcohol or drug abuse patient.[facility] SouthIn the event this information is protected by the Federal Confidentiality of Alcohol and Drug Abuse Patient Records regulations: The Federal rules restrict any use of the information to criminally investigate or prosecute any alcohol or drug abuse patient.[facility] SouthIn the event this information is protected by the Federal Confidentiality of Alcohol and Drug Abuse Patient Records regulations: The Federal rules restrict any use of the information to criminally investigate or prosecute any alcohol or drug abuse patient.[facility] SouthIn the event this information is protected by the Federal Confidentiality of Alcohol and Drug Abuse Patient Records regulations: The Federal rules restrict any use of the information to criminally investigate or prosecute any alcohol or drug abuse patient.[facility] SouthIn the event this information is protected by the Federal Confidentiality of Alcohol and Drug Abuse Patient Records regulations: The Federal rules restrict any use of the information to criminally investigate or prosecute any alcohol or drug abuse patient.[facility] SouthIn the event this information is protected by the Federal Confidentiality of Alcohol and Drug Abuse Patient Records regulations: The Federal rules restrict any use of the information to criminally investigate or prosecute any alcohol or drug abuse patient.[facility] SouthIn the event this information is protected by the Federal Confidentiality of Alcohol and Drug Abuse Patient Records regulations: The Federal rules restrict any use of the information to criminally investigate or prosecute any alcohol or drug abuse patient.[facility] SouthIn the event this information is protected by the Federal Confidentiality of Alcohol and Drug Abuse Patient Records regulations: The Federal rules restrict any use of the information to criminally investigate or prosecute any alcohol or drug abuse patient.[facility] SouthIn the event this information is protected by the Federal Confidentiality of Alcohol and Drug Abuse Patient Records regulations: The Federal rules restrict any use of the information to criminally investigate or prosecute any alcohol or drug abuse patient.[facility] SouthIn the event this information is protected by the Federal Confidentiality of Alcohol and Drug Abuse Patient Records regulations: The Federal rules restrict any use of the information to criminally investigate or prosecute any alcohol or drug abuse patient.[facility] SouthIn the event this information is protected by the Federal Confidentiality of Alcohol and Drug Abuse Patient Records regulations: The Federal rules restrict any use of the information to criminally investigate or prosecute any alcohol or drug abuse patient.[facility] SouthIn the event this information is protected by the Federal Confidentiality of Alcohol and Drug Abuse Patient Records regulations: The Federal rules restrict any use of the information to criminally investigate or prosecute any alcohol or drug abuse patient.[facility] SouthIn the event this information is protected by the Federal Confidentiality of Alcohol and Drug Abuse Patient Records regulations: The Federal rules restrict any use of the information to criminally investigate or prosecute any alcohol or drug abuse patient.[facility] SouthIn the event this information is protected by the Federal Confidentiality of Alcohol and Drug Abuse Patient Records regulations: The Federal rules restrict any use of the information to criminally investigate or prosecute any alcohol or drug abuse patient.[facility] SouthIn the event this information is protected by the Federal Confidentiality of Alcohol and Drug Abuse Patient Records regulations: The Federal rules restrict any use of the information to criminally investigate or prosecute any alcohol or drug abuse patient.[facility] SouthIn the event this information is protected by the Federal Confidentiality of Alcohol and Drug Abuse Patient Records regulations: The Federal rules restrict any use of the information to criminally investigate or prosecute any alcohol or drug abuse patient.[facility] SouthIn the event this information is protected by the Federal Confidentiality of Alcohol and Drug Abuse Patient Records regulations: The Federal rules restrict any use of the information to criminally investigate or prosecute any alcohol or drug abuse patient.[facility] the event this information is protected by the Federal Confidentiality of Alcohol and Drug Abuse Patient Records regulations: The Federal rules restrict any use of the information to criminally investigate or prosecute any alcohol or drug abuse patient.[facility] SouthIn the event this information is protected by the Federal Confidentiality of Alcohol and Drug Abuse Patient Records regulations: The Federal rules restrict any use of the information to criminally investigate or prosecute any alcohol or drug abuse patient.[facility] SouthIn the event this information is protected by the Federal Confidentiality of Alcohol and Drug Abuse Patient Records regulations: The Federal rules restrict any use of the information to criminally investigate or prosecute any alcohol or drug abuse patient.[facility] SouthIn the event this information is protected by the Federal Confidentiality of Alcohol and Drug Abuse Patient Records regulations: The Federal rules restrict any use of the information to criminally investigate or prosecute any alcohol or drug abuse patient.[facility] SouthIn the event this information is protected by the Federal Confidentiality of Alcohol and Drug Abuse Patient Records regulations: The Federal rules restrict any use of the information to criminally investigate or prosecute any alcohol or drug abuse patient.[facility] SouthIn the event this information is protected by the Federal Confidentiality of Alcohol and Drug Abuse Patient Records regulations: The Federal rules restrict any use of the information to criminally investigate or prosecute any alcohol or drug abuse patient.[facility] SouthIn the event this information is protected by the Federal Confidentiality of Alcohol and Drug Abuse Patient Records regulations: The Federal rules restrict any use of the information to criminally investigate or prosecute any alcohol or drug abuse patient.[facility] SouthIn the event this information is protected by the Federal Confidentiality of Alcohol and Drug Abuse Patient Records regulations: The Federal rules restrict any use of the information to criminally investigate or prosecute any alcohol or drug abuse patient.[facility] SouthIn the event this information is protected by the Federal Confidentiality of Alcohol and Drug Abuse Patient Records regulations: The Federal rules restrict any use of the information to criminally investigate or prosecute any alcohol or drug abuse patient.[facility] SouthIn the event this information is protected by the Federal Confidentiality of Alcohol and Drug Abuse Patient Records regulations: The Federal rules restrict any use of the information to criminally investigate or prosecute any alcohol or drug abuse patient.[facility] SouthIn the event this information is protected by the Federal Confidentiality of Alcohol and Drug Abuse Patient Records regulations: The Federal rules restrict any use of the information to criminally investigate or prosecute any alcohol or drug abuse patient.[facility] SouthIn the event this information is protected by the Federal Confidentiality of Alcohol and Drug Abuse Patient Records regulations: The Federal rules restrict any use of the information to criminally investigate or prosecute any alcohol or drug abuse patient.[facility] SouthIn the event this information is protected by the Federal Confidentiality of Alcohol and Drug Abuse Patient Records regulations: The Federal rules restrict any use of the information to criminally investigate or prosecute any alcohol or drug abuse patient.[facility] Reason for Visit (unrecogniz ed section and [...] needed Reason Comments CARD New Patient Consult [facility] 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 Reason [...] Care Teams (unrecognized sec tion and content) Choreography Director Relationship Specialty Start Date End Date Татьяна Barnard MD [address] [facility] [place] [address] PCP - General Internal Medicine 05/06/16 Choreography Director Relationship Specialty Start Date End Date Татьяна Barnard MD [address] [facility] [place] [address] PCP - General Internal Medicine 05/06/16 Choreography Director Relationship Specialty Start Date End Date Татьяна Barnard MD [address] [facility] [place] [address] PCP - General Internal Medicine 05/06/16 Choreography Director Relationship Specialty Start Date End Date Татьяна Barnard MD [address] [facility] [place] [address] PCP - General Internal Medicine 05/06/16 Choreography Director Relationship Specialty Start Date End Date Татьяна Barnard MD [address] [facility] [place] [address] PCP - General Internal Medicine 05/06/16 Choreography Director Relationship Specialty Start Date End Date Татьяна Barnard MD [address] [facility] [facility] [place] [address] PCP - General Internal Medicine 05/06/16 Choreography Director Relationship Specialty Start Date End Date Татьяна Barnard MD [address] [place] [address] PCP - General Internal Medicine 05/06/16 Choreography Director Relationship Specialty Start Date End Date Татьяна Barnard MD [address] [place] [address] PCP - General Internal Medicine 05/06/16 Choreography Director Relationship Specialty Start Date End Date Татьяна Barnard MD [address] [place] [address] PCP - General Internal Medicine 05/06/16 Choreography Director Relationship Specialty Start Date End Date Татьяна Barnard MD [address] [place] [address] PCP - General Internal Medicine 05/06/16 Choreography Director Relationship Specialty Start Date End Date Татьяна Barnard MD [address] [place] [address] PCP - General Internal Medicine 05/06/16 Choreography Director Relationship Specialty Start Date End Date Татьяна Barnard MD [address] [place] [address] PCP - General Internal Medicine 05/06/16 Choreography Director Relationship Specialty Start Date End Date Татьяна Barnard MD [address] [place] [address] PCP - General Internal Medicine 05/06/16 Choreography Director Relationship Specialty Start Date End Date Татьяна Barnard MD [address] [place] [address] PCP - General Internal Medicine 05/06/16 Choreography Director Relationship Specialty Start Date End Date Татьяна Barnard MD [address] [place] [address] PCP - General Internal Medicine 05/06/16 Choreography Director Relationship Specialty Start Date End Date Татьяна Barnard MD [address] [facility] [place] [address] PCP - General Internal Medicine 05/06/16 Choreography Director Relationship Specialty Start Date End Date Татьяна Barnard MD [address] [place] [address] PCP - General Internal Medicine 05/06/16 Choreography Director Relationship Specialty Start Date End Date Татьяна Barnard MD [address] [place] [address] PCP - General Internal Medicine 05/06/16 Choreography Director Relationship Specialty Start Date End Date Татьяна Barnard MD [address] [place] [address] PCP - General Internal Medicine 05/06/16 Choreography Director Relationship Specialty Start Date End Date Татьяна Barnard MD [address] [place] [address] PCP - General Internal Medicine 05/06/16 Fredis Marie [address] [place] [address] Specialty Invoice Checker Cardiology 01/27/23 Yuriy Collins DO [address] [place] [address] Specialty Invoice Checker Gastroenterology 01/27/23 Choreography Director Relationship Specialty Start Date End Date Татьяна Barnard MD [address] [place] [address] PCP - General Internal Medicine 05/06/16 Cynthia Fredis S [address] [place] [address] Specialty Invoice Checker Cardiology 01/27/23 Yuriy Collins DO [address] [place] [address] Specialty Invoice Checker Gastroenterology 01/27/23 Choreography Director Relationship Specialty Start Date End Date Татьяна Barnard MD [address] [place] [address] PCP - General Internal Medicine 05/06/16 Nirmal Marieril S [address] [place] [address] Specialty Invoice Checker Cardiology 01/27/23 Yuriy Collins DO [address] [place] [address] Specialty Invoice Checker Gastroenterology 01/27/23 Choreography Director Relationship Specialty Start Date End Date Татьяна Barnard MD [address] [place] [address] PCP - General Internal Medicine 05/06/16 Nirmal Marieril S [address] [place] [address] Specialty Invoice Checker Cardiology 01/27/23 Yuriy Collins DO [address] [place] [address] Specialty Invoice Checker Gastroenterology 01/27/23 Choreography Director Relationship Specialty Start Date End Date Татьяна Barnard MD [address] [place] [address] PCP - General Internal Medicine 05/06/16 Fredis Marie MD [address] [place] [address] Specialty Invoice Checker Cardiology 01/27/23 Yuriy Collins DO [address] [place] [address] Specialty Invoice Checker Gastroenterology 01/27/23 Choreography Director Relationship Specialty Start Date End Date Татьяна Barnard MD [address] [facility] [place] [address] PCP - General Internal Medicine 05/06/16 Fredis Marie MD [address] [place] [address] Specialty Invoice Checker Cardiology 01/27/23 Yuriy Collins DO [address] [place] [address] Specialty Invoice Checker Gastroenterology 01/27/23 Choreography Director Relationship Specialty Start Date End Date Татьяна Barnard MD [address] [facility] [place] [address] PCP - General Internal Medicine 05/06/16 Fredis Marie MD [address] [place] [address] Specialty Invoice Checker Cardiology 01/27/23 Yuriy Collins DO [address] [place] [address] Specialty Invoice Checker Gastroenterology 01/27/23 Choreography Director Relationship Specialty Start Date End Date Татьяна Barnard MD [address] [place] [address] PCP - General Internal Medicine 05/06/16 Fredis Marie MD [address] [place] [address] Specialty Invoice Checker Cardiology 01/27/23 Yuriy Collins DO [address] [place] [address] Specialty Invoice Checker Gastroenterology 01/27/23 Choreography Director Relationship Specialty Start Date End Date Татьяна Barnard MD [address] [place] [address] PCP - General Internal Medicine 05/06/16 Choreography Director Relationship Specialty Start Date End Date Татьяна Barnard MD [address] [place] [address] PCP - General Internal Medicine 05/06/16 Fredis Marie MD [address] [place] [address] Specialty Invoice Checker Cardiology 01/27/23 Yuriy Collins DO [address] [place] [address] Specialty Invoice Checker Gastroenterology 01/27/23 Choreography Director Relationship Specialty Start Date End Date Татьяна Barnard MD [address] [place] [address] PCP - General Internal Medicine 05/06/16 Fredis Marie MD [address] [place], [place] [id number] Specialty Invoice Checker Cardiology 01/27/23 Yuriy Collins DO [address] [place], [place] [address] Specialty Invoice Checker Gastroenterology 01/27/23 Choreography Director Relationship Specialty Start Date End Date Татьяна Barnard MD [address] [place], [place] [address] PCP - General Internal Medicine 05/06/16 Fredis Marie MD [address] [place], [place] [address] Specialty Invoice Checker Cardiology 01/27/23 Yuriy Collins DO [address] [place], [place] [id number] Specialty Invoice Checker Gastroenterology 01/27/23 INFORMATION SOURCE (unrecogn ized section and content) DATE CREATED AUTHOR AUTHOR'S ORGANIZ ATION 07/13/2023 [facility] FOR RECORDS PERTAINING TO PATIENTS WHO [...] BE BASED ON THE PRIMARY CLINICAL RECORDS. [employer] [facility]. provides no warranty or guarantee of the accuracy or completeness of information in this document.
--- NOTE | 2023-07-13 15:38 | RAD_ITS ---
STUDY: X-RAY - LEFT FOOT CLINICAL: Female, 87 years old. injury TECHNIQUE: 3 view(s) of the foot. COMPARISON: None. FINDINGS: Diffuse osteopenia. Trace plantar calcaneal spur and enthesophyte at the Achilles tendon insertion site. Otherwise normal talus, calcaneus, and tarsal bones. Normal visualized subtalar, talonavicular, calcaneocuboid, tarsal and tarsometatarsal articulations. Normal metatarsi. Mild narrowing of the metatarsophalangeal joint of the great toe. Normal tibial and fibular sesamoid bones. Normal interphalangeal joint of the great toe. Normal phalanges of the great toe. Normal second through fifth metatarsophalangeal joints. Narrowing of the interphalangeal joints otherwise normal phalanges of the lesser toes. The soft tissue structures are unremarkable. There is no demonstrated fracture. RAD/Foot min 3 Views IMPRESSION: Osteopenia with osteoarthritis as described. Otherwise no acute fracture or subluxation. Electronically Signed: Loretta Fountain MD at 16:29 EST ,
--- NOTE | 2023-07-13 15:38 | RAD_ITS ---
STUDY: X-RAY - LUMBAR SPINE REASON FOR EXAM: Female, 87 years old. fall TECHNIQUE: 3 view(s) of the lumbar spine were obtained. COMPARISON: None FINDINGS: Normal lumbar lordosis. There is no substantial scoliosis. There is a normal alignment of the vertebrae. There is diffuse demineralization with multi-level endplate spondylosis. There is multi-level degenerative disc disease with multi-level disc space narrowing. There is no demonstrated fracture. Multilevel bilateral facet hypertrophy. There is atherosclerotic calcification of the abdominal aorta without a demonstrated aneurysm. RAD/Lumbar Spine 2 or 3 Views IMPRESSION: Diffuse osteopenia with multilevel degenerative disease as described. No acute fracture or spondylolisthesis seen. Electronically Signed: Loretta Fountain MD at 16:29 EST ,
--- NOTE | 2023-07-13 15:49 | RAD_ITS ---
STUDY: X-RAY - RIGHT FOOT CLINICAL: Female, 87 years old. INJURY TECHNIQUE: 3 view(s) of the foot. COMPARISON: None. FINDINGS: There is a plantar calcaneal spur. Diffuse osteopenia. Normal visualized subtalar, talonavicular, calcaneocuboid, tarsal and tarsometatarsal articulations. Normal metatarsi. There is mild degenerative arthrosis of the metatarsophalangeal joint of the hallux . Normal tibial and fibular sesamoid bones. There is degenerative arthrosis of the interphalangeal joint of the great toe. Normal phalanges of the great toe. Normal second through fifth metatarsophalangeal joints. Narrowing of the interphalangeal joints second through fifth digits otherwise normal phalanges of the lesser toes. The soft tissue structures are unremarkable. There is no demonstrated fracture. RAD/Foot min 3 Views IMPRESSION: Diffuse osteopenia with osteoarthritis as described. No acute fracture or subluxation. Electronically Signed: Loretta Fountain MD at 16:28 EST ,
--- NOTE | 2023-07-13 15:59 | HP.PCM.HOS_ITS ---
HPI - General General Date of Admission: 07/13/23 Date of Service: 07/13/23 Chief Complaint: syncope HPI Narrative BERNADETTE ELIZABETH, is a 87 F who presented to the emergency department at [facility] on 07/13/2023 with a chief complaint of syncope. Patient reported that over the last couple days she has had some nausea but it had not prohibited her from eating or drinking normally and otherwise she was feeling fine up until this morning. She stated when she got up she felt okay and did her normal routine however in the late morning she got up to go to the bathroom and started to feel woozy, warm and nauseated. She walked to the bathroom where she fell but was not sure if she completely passed out. At that point she called her daughter for help and her daughter was able to help get her to the commode as she felt that she had to go to the bathroom but during that transition she had another episode of decreased responsiveness at which time she slumped over and her eyes were open but rolled back in her head. She did not notice any abnormal twitching or movement and the patient did not lose bowel or bladder function. The patient did complain of some nausea during this time as well. The patient reported that she rolled over on her feet and was complaining of pain in both of her feet at the time of my evaluation as well as back pain as she fell on her back as well. She has a history of osteoporosis for which she was taking Fosamax. This was recently stopped by Dr. Basilio as she had been on it for extended period of time and the plan was to transition to Prolia in the near future. At the time of my evaluation the patient stated she felt incredibly tired and had mild nausea but had no other complaints. She was found to be hypoxic on room air at 86% was placed on 2 L nasal cannula. [facility] I did stop her oxygen to see what her oxygen saturations would do and she again desatted to 87% on room air. She does not have a history of any lung disease and does not wear oxygen at baseline. He had no respiratory complaints at all. She is chronically anticoagulated with rivaroxaban and is compliant. Her family did report that she was recently started on terazosin and as she tends to have fairly fluctuant blood pressures that vary from 1 20-160 systolic and her family reports that every time she goes to the doctor they change her blood pressure medication. They did indicate that recently renal duplex has been ordered as an outpatient for further evaluation for renal artery stenosis as a cause for her fluctuant blood pressures. Vital signs on presentation showed a temperature of 96.3, heart rate was 56, blood pressure was 147/57, respiratory rate was 16 and oxygen saturations were 86% on room air and improved to 93 to 98% on 2 L nasal cannula. Her CBC was overall unremarkable other than a chronic stable anemia with a hemoglobin of 10 (baseline appears to run between 10 and 11.) Her white count was normal and her differential was unremarkable. Her chemistry panel showed a BUN of 29 and a serum creatinine of 1.7 which were slightly above her baseline (baseline crea tinine 1.5-1.65). Her serum glucose was 165 with no history of diabetes. Her initial troponin was 116 with a repeat at 119. Her BNP was slightly elevated however markedly lower than previous at 217.9. Her UA was suggestive of infection with positive nitrates and leuk esterase with 3+ bacteria however the patient was completely asymptomatic and had no dysuria or frequency. CT of the brain showed only chronic involutional changes. Chest x-ray showed mild elevation of the left hemidiaphragm but was otherwise unremarkable. CT of the chest showed mild pericardial thickening and mild increase markings at the lung apices suggestive of either atelectasis or scarring but was otherwise unremark able. Strays of bilateral feet were suggestive of osteopenia with osteoarthritis but no acute fracture or subluxation was identified. Lumbar films were unremarkable as well. EKG demonstrated sinus bradycardia with a heart rate of 52, normal intervals and no acute ischemic changes. [facility] Medical History Acquired keratoderma Anemia Atrial fibrillation, new onset Bilateral lower extremity edema Cardiology follow-up encounter CKD (chronic kidney disease) stage 4, GFR 15-29 ml/min Dyspnea on exertion Elevated liver enzymes Essential hypertension Essential hypertension Former smoker Gastric reflux Glaucoma Hemorrhage of anus and rectum Hernia History of CHF (congestive heart failure) History of echocardiogram History of edema History of stress test HLD (hyperlipidemia) Lymphedema of both lower extremities Near syncope Osteoporosis Palpitations Paroxysmal atrial fibrillation Pneumonia (03/19/22) Positive occult stool blood test Post-menopausal Stage 3b chronic kidney disease (CKD) Stage 3b chronic kidney disease (CKD) Sweating Syncope Thyroid disease Umbilical hernia Wears glasses Home Medications atorvastatin 20 mg tablet 20 mg PO QODAY Cholesterol 12/06/16 [History Last Taken 07/12/23 09:00] latanoprost 0.005 % eye drops 1 drp EACHEYE QHS eye drops 12/06/16 [History Last Taken 07/12/23 21:00] timolol maleate 0.5 % eye drops 1 drp RIGHT EYE BID eye drops 12/06/16 [History Last Taken 07/13/23 09:00] brimonidine 0.15 % eye drops 1 drp ophthalmic (eye) BID eye health 03/25/22 [History Last Taken 07/13/23 09:00] levothyroxine 25 mcg tablet 25 mcg PO DAILY thyroid 03/25/22 [History Last Taken 07/13/23 08:00] omeprazole 40 mg capsule,delayed release 40 mg PO DAILY gerd 03/25/22 [History Last Taken 07/13/23 09:00] losartan 50 mg tablet 50 mg PO BID bp #180 tabs 07/11/22 [Rx Last Taken 07/13/23 09:00] hydralazine 10 mg tablet 10 mg PO Q6H bp 09/24/22 [History Last Taken 07/13/23 09:00] rivaroxaban 15 mg tablet (Xarelto) 15 mg PO DINNER blood thinner #30 tabs 04/22/23 [Rx Last Taken 07/12/23 17:00] cholecalciferol (vitamin D3) 50 mcg (2,000 unit) capsule 50 mcg PO BID supplement 05/08/23 [History Last Taken 07/13/23 09:00] furosemide 20 mg tablet 20 mg PO Q OTHER DAY diuresis 05/08/23 [History Last Taken 07/12/23 09:00] mecobalamin (vitamin B12) 1,000 mcg chewable tablet 1,000 mcg PO DAILY supplement 05/08/23 [History Last Taken 07/13/23 09:00] carvedilol 12.5 mg tablet 12.5 mg PO BID bp #180 tabs 05/25/23 [Rx Last Taken 07/13/23 09:00] denosumab 60 mg/mL subcutaneous syringe (Prolia) 60 mg subcut [id number] #1 mL 06/05/23 [Rx Last Taken Unknown] potassium chloride 10 mEq capsule,extended release 10 meq PO BID supplement 07/13/23 [History Last Taken 07/13/23 09:00] terazosin 2 mg capsule 2 mg PO QHS bp 07/13/23 [History Last Taken 07/12/23 21:00] trazodone 50 mg tablet mg PO PRN insomnia 07/13/23 [History Last Taken 07/12/23 21:00] Allergy/AdvReac Type Severity Reaction Status Date / Time amantadine Allergy Rash Verified 07/13/23 11:17 cephalexin Allergy Rash Verified 07/13/23 11:17 erythromycin base Allergy Rash Verified 07/13/23 11:17 hydrochlorothiazide Allergy Rash Verified 07/13/23 11:17 Iodinated Contrast Media Allergy Rash Verified 07/13/23 11:17 amlodipine [From [facility]] AdvReac Other Verified 07/13/23 11:17 Family History Mother CAD (coronary artery disease) Father CAD (coronary artery disease) Brother CAD (coronary artery disease) Sister CAD (coronary artery disease) Surgical History H/O hernia repair History of cardiac catheterization History of colonoscopy History of hysteroscopy History of left heart catheterization (02/05/18) Hx of esophagogastroduodenoscopy s/p left wrist ORIF Tubal ligation status Social History household members: none housing: apartment number of children: 4 Smoking Status: Former smoker quit date: 06/29/76 alcohol intake: never substance use type: does not use caffeine: Yes (Occasionally) ROS Constitutional Constitutional: Reports fatigue, malaise and weakness; Denies anorexia, change in weight, chills, fever(s), night sweats or other Eyes Eyes: Denies blurry vision, change in eye color, change in vision, discharge from eye(s), double vision, erythema, eye pain, loss of vision or other ENT HEENT: Denies abnormal hearing, dysphagia, ear pain, epistaxis, headache(s), hearing loss, nasal congestion, nasal discharge, post nasal drip, sinus pressure, sore throat or other Cardiovascular Cardiovascular: Reports lightheadedness and syncope; Denies chest pain, claudication, dyspnea on exertion, edema, orthopnea, palpitations, paroxysmal nocturnal dyspnea, rapid heart rate or other Respiratory/Chest Respiratory/Chest: Denies cough, dyspnea, excessive phlegm production, hemoptysis, productive cough, shortness of breath at rest, shortness of breath with exertion, wheezing or other Gastrointestinal Gastrointestinal: Reports nausea; Denies abdominal pain, coffee ground emesis, constipation, diarrhea, dyspepsia, hematemesis, hematochezia, loose stools, me meghna, vomiting or other Genitourinary Genitourinary: Denies burning urination, difficulty urinating, dysuria, hematuria, nocturia, urinary frequency, urinary hesitancy, urinary incontinence, urinary urgency or other Musculoskeletal Musculoskeletal: Reports back pain, joint pain, joint stiffness and other Details: Bilateral foot pain Neurologic Neurologic: Reports syncope; Denies abnormal gait, abnormal speech, confusion, disequilibrium, dizziness, focal weakness, headache(s), numbness, paresthesias, seizure-like activity, seizures, tingling, tremor(s) or other Psychiatric Psychiatric: Denies anxiety, depression, homicidal ideation, suicidal ideation or other Endocrine Endocrinology: Denies change in body appearance, cold intolerance, excessive s weating, heat intolerance, polydipsia, polyuria or other Hematologic/Lymphatic Hematologic/Lymphatic: Reports anemia; Denies easy bleeding, easy bruising, lymphadenopathy or other Allergic/Immunologic Allergic/Immunologic: Denies rhinitis, hives, eczemia, asthma or other Vital Signs Vital Signs Vital Signs: 07/13/23 11:11 07/13/23 11:24 07/13/23 11:34 Temperature 96.3 F L Temperature Source Temporal Pulse Rate 56 L 52 L Respiratory Rate 16 Respiratory Pattern Normal Blood Pressure 147/57 H 147/57 H Blood Pressure Mean 87 87 Pulse Ox 86 93 Oxygen Delivery Method Room Air Nasal Cannula Oxygen Flow Rate (L/min) 2 07/13/23 13:07 07/13/23 14:30 07/13/23 15:00 Temperature Temperature Source Pulse Rate 57 L 58 L 62 Respiratory Rate 20 H 20 H 17 Respiratory Pattern Blood Pressure 134/68 H 134/50 H 147/49 H Blood Pressure Mean 90 78 75 Pulse Ox 98 98 97 Oxygen Delivery Method Nasal Cannula Oxygen Flow Rate (L/min) 2 Physical Exam Const alert, oriented x3, no apparent distress, average body habitus and well nourished Constitutional Narrative: Elderly, white female, sitting up in bed, appears comfortable and nontoxic, fatigued but very pleasant General Appearance: cooperative HEENT normocephalic, head/scalp atraumatic, hearing grossly normal bilaterally and moist oral mucous membranes HEENT Narrative: Mallampati 2, no thrush Eyes PERRL, EOMs intact bilaterally and conjunctivae normal Eyes Narrative: No scleral icterus Neck no lymphadenopathy and supple Neck Narrative: Trachea midline, no thyroid enlargement Resp normal respiratory effort, no retractions, no use of accessory muscles and clear to auscultation bilaterally Auscultation: Negative for rales, rhonchi or wheezes Cardio regular rhythm, S1 normal heart sound, S2 normal heart sound, no murmurs, no ru b, no gallops and no clicks Cardio Narrative: Mild bradycardia GI normal to inspection, nondistended, normoactive bowel sounds, soft to palpation and non-tender Extremity no clubbing, cyanosis or edema Extremity Narrative: Tenderness at bilateral toes with ecchymosis across right foot at phalanges Neuro oriented x3, moves all extremities and no focal motor deficits Neuro Narrative: Generalized weakness noted Speech: speech normal Psych Psych Narrative: Affect is slightly flat, eye contact is good, and mood appears stable Results Lab / Micro Data 07/13/23 11:35 07/13/23 11:35 Labs: Laboratory Results - last 24 hr 07/13/23 11:35: WBC 5.4, RBC 3.21 L, Hgb 10.0 L, Hct 30.9 L, MCV 96.3, MCH 31.2, MCHC 32.4, RDW Std Deviation 43.3, RDW Coeff of Broderick 12.4, Plt Count 179, MPV 9.6, Immature Gran % (Auto) 0.400, Neut % (Auto) 62.0, Lymph % (Auto) 28.3, Amelia % (Auto) 6.3, Eos % (Auto) 2.6, Baso % (Auto) 0.4, Absolute Neuts (auto) 3.3, Absolute Lymphs (auto) 1.52, Nucleated RBC % 0, Sodium 142, Potassium 3.8, Chloride 112 H, Carbon Dioxide 24.0, Anion Gap 6, BUN 29 H, Creatinine 1.70 H, Est GFR (MDRD) Af Amer 37 L, Est GFR (MDRD) Non-Af 30 L, BUN/Creatinine Ratio 17.1, Glucose 165 H, Calcium 8.8, Troponin I High Sens 116 H 07/13/23 13:53: Troponin I High Sens 119 H, Urine Color Yellow, Urine Clarity Sl. Cloudy, Urine pH 5.0, Ur Specific Drumright 1.020, Urine Protein 30 H, Urine Glucose (UA) Normal, Urine Ketones Negative, Urine Occult Blood 10 H, Urine Nitrite Positive H, Urine Bilirubin Negative, Urine Urobilinogen Normal, Ur Leukocyte Esterase 100 H, Urine RBC 0-5 SEEN, Urine WBC 25-50 SEEN, Ur Squamous Epith Cells 0-5 SEEN, Urine Bacteria 3+, Urine Mucus 0 SEEN Micro: Microbiology 07/13/23 11:25 Mucosa - Nose SARS-CoV-2, Influenza & RSV (PCR) - Final Imagaing Radiology Impression Brain CT 07/13/23 11:17 IMPRESSION: Chronic involutional changes of the brain. Electronically Signed: Hans Puga MD at 12:24 EST , Chest X-Ray 07/13/23 12:00 IMPRESSION: Mild elevation of the left hemidiaphragm. No acute infiltrate is seen. Electronically Signed: Hans Puga MD at 12:35 EST , Chest CT 07/13/23 13:31 IMPRESSION: Mild degree of pericardial thickening. Mild increased markings at the lung apices suggestive of either atelectasis and/or scarring. Electronically Signed: Hans Puga MD at 14:51 EST , Assessment & Plan Assessment/Plan (1) Hypoxia: (2) Syncope: (3) Elevated troponin: (4) Hyperglycemia: (5) Fall: (6) Back pain: (7) Foot pain, bilateral: PLAN: Plan Syncope -Etiology is unclear at this time -Patient has been on new blood pressure medication and family reports significant lability with her blood pressure -Will hold home terazosin and continue other home antihypertensives -Check echocardiogram -Check TSH -Patient is chronically anticoagulated however I have seen people develop PE on DOAC so we will check VQ scan with normal chest imaging given the fact we cannot do a CTA of her chest due to renal dysfunction to rule out PE contributing to her syncopal event -Check COVID and flu -Check respiratory viral panel Hypoxia -Etiology is unclear -CT of the chest does not show any significant lung parenchymal issues -BNP is slightly elevated however lower than previous -Will give Lasix 40 mg IV push x 1 dose -Check VQ scan to rule out PE as etiology for hypoxia and syncope -I-S/Acapella -As needed albuterol -Check respiratory viral panel/COVID/influenza/RSV -Wean oxygen as able as she is not oxygen dependent at baseline Back pain/bilateral foot pain -Both result of fall -Scheduled Tylenol -As needed low-dose oxycodone 2.5 mg -Check imaging of bilateral feet and back -Patient does have history of osteoporosis so if pain is persistent without improvement may need to consider CT Fall/weakness -PT/OT consultation -Case management/social work to help with discharge planning Elevated troponin -Etiology is unclear in the setting of CKD -Patient does not have chest pain however did have a syncopal event -VQ scan to rule out PE -Check echocardiogram -Head angiographically normal coronary arteries in 2018 with cardiac catheterization Hyperglycemia -May be reactive but will check hemoglobin A1c to rule out new diagnosis of diabetes Hyperlipidemia -Continue home atorvastatin Glaucoma -Continue home eyedrops History of A-fib with RVR -Continue home rivaroxaban -Continue home carvedilol -Patient does have history of GI bleed and is in the process of being referred for a Watchman device GERD/history of GI bleed -Continue home PPI -Previous GI bleeds have been upper GI bleeds in the stomach and duodenum -Patient follows with GI as an outpatient and last visit was in October 2022 Chronic HFpEF -Patient with mildly elevated BNP and hypoxia however I am unclear if she is actually in acute heart failure at this time -Chest x-ray does not support heart failure nor do CT of the chest -Continue home medications and monitor clinically Hypertension -Blood pressure has been difficult to control -Outpatient renal duplex is pending and if blood pressures remain to be problematic here could consider doing more during hospitalization -Will hold home to Zosyn but continue home hydralazine, Lasix, losartan and, carvedilol -As needed hydralazine available for systolic blood pressure greater than 160 CKD stage IIIb -Baseline serum creatinine appears to run between 0.5 and 1.65 -Serum creatinine on presentation was 1.7 so close to baseline -Patient follows with outpatient nephrology and sees Dr. Bina Sewell -Avoid nephrotoxins and continue to monitor serum creatinine Osteoporosis -Patient follows with Dr. Basilio -Ongoing outpatient follow-up for Prolia Insomnia -Hold home trazodone -As needed melatonin Hypothyroidism -Check TSH -Continue home levothyroxine DVT prophylaxis -Continue home rivaroxaban CODE STATUS -DNR CCA with no intubation as verified on admission Charges/Coding Visit Charges Inpatient E&M: 49580 Init Hosp L3
[2023-07-13 16:16] LABS: BNP,B-Type NATRIURETIC PEPTIDE 217.9 pg/mL (0-100)
--- OUTSIDE RECORDS SUMMARY | 2023-07-13 16:34 | XMS RPT_ITS | CCD ---
Author Name Unknown Address [address] [place] [address] Organization [facility] Care Team Providers Care [employer] Solution Architect Name Role Phone Evon FERNANDEZ, Татьяна Primary Care Provider Татьяна Barnard MD Primary Care Provider [phone] Cynthia, Fredis S Unavailable Friend DO, Yuriy [...] ТАТЬЯНА Primary Care Unavailable OLDERJESUSITA Referring Unavailable [facility] Unavailable AELSSIO ALEXANDER Attending Unavailable [facility] Unavailable Allergies Allergy Classification Reported Allergen(s) Allergy Type Date of Onset Reaction(s) Facility (20 sources) Amantadine; Translations: [AMANTADINE] Drug Allergy 5 [facility] Work Phone: (20 sources) amLODIPine; Translations: [AMLODIPINE BESYLATE] Drug Allergy 8 [facility] (20 sources) Captopril; Translations: [CAPTOPRIL] Drug Allergy 5 [facility] Work Phone: [phone] (20 sources) Cephalexin; Translations: [CEPHALEXIN] Drug Allergy 5 [facility] Work Phone: (20 sources) Erythromycin; Translations: [ERYTHROMYCIN] Drug Allergy 5 [facility] Work Phone: (20 sources) Iodine; Translations: [IODINE] Drug Allergy 5 [facility] Work Phone: (4 sources) Thiazides; Translations: [THIAZIDES] Propensity to adverse reactions to drug 5 Other: See Comments [facility] Work Phone: (20 sources) Thiazides Propensity to adverse reactions to drug 5 Other: See Comments [facility] Work Phone: Medications Current Medications Medication Drug [...] IF UNABLE, PLEASE REFER TO [facility]. DX: EDEMA 1 Each 0 12/09/2017 Active [...] source) Long-term current use of bisphosphonates; Translations: [technician terminal and repeater (current) use of bisphosphonates] Episodic Other aftercare (1 source) shelter (current) use of anticoagulants; Translations: [Anticoagulant long-term [...] sources) Long-term current use of anticoagulant; Translations: [shelter (current) use of anticoagulants] Onset: 3 01-23-2023 [...] Diastolic blood pressure 67 mm[Hg] Enriqueta Marshall FEATHER EDGER.CYTOGENETICIST Work Phone: [facility] 06-01-2023 14:33-0500 Heart rate 56 /min Enriqueta Marshall FEATHER EDGER.CYTOGENETICIST Work Phone: [facility] 06-01-2023 14:33-0500 Systolic blood pressure 181 mm[Hg] Enriqueta Marshall FEATHER EDGER.CYTOGENETICIST Work Phone: [facility] 06-01-2023 14:26-0500 Body weight 63.5 kg Enriqueta Marshall FEATHER EDGER.CYTOGENETICIST Work Phone: [facility] 06-01-2023 14:26-0500 Respiratory rate 16 /min Enriqueta Marshall FEATHER EDGER.CYTOGENETICIST Work Phone: [facility] 05-01-2023 13:59-0400 Diastolic blood pressure 74 mm[Hg] Toshia Older FEATHER EDGER.TAPE MAKING MACHINE OPERATOR Work Phone: [facility] 05-01-2023 13:59-0400 Heart rate 60 /min Toshia Older FEATHER EDGER.TAPE MAKING MACHINE OPERATOR Work Phone: [facility] 05-01-2023 13:59-0400 Systolic blood pressure 172 mm[Hg] Toshia Older FEATHER EDGER.TAPE MAKING MACHINE OPERATOR Work Phone: [facility] 05-01-2023 13:58-0400 Body weight 61.69 kg Toshia Older FEATHER EDGER.TAPE MAKING MACHINE OPERATOR Work Phone: [facility] 05-01-2023 13:58-0400 Respiratory rate 14 /min Toshia Older FEATHER EDGER.TAPE MAKING MACHINE OPERATOR Work Phone: [facility] 04-15-2023 15:55-0400 Diastolic blood pressure 78 mm[Hg] Alessio Denbow PA-C Work Phone: [facility] 04-15-2023 15:55-0400 Systolic blood pressure 200 mm[Hg] Alessio Denbow PA-C Work Phone: [facility] 04-15-2023 15:03-0400 Body height 157.5 cm Alessio Denbow PA-C Work Phone: [facility] 04-15-2023 15:03-0400 Body temperature 97.2 [degF] Alessio Denbow PA-C Work Phone: [facility] 04-15-2023 15:03-0400 Body weight 58.97 kg Alessio Denbow PA-C Work Phone: [facility] 04-15-2023 15:03-0400 Heart rate 64 /min Alessio Denbow PA-C Work Phone: [facility] 04-15-2023 15:03-0400 Respiratory rate 12 /min Alessio Denbow PA-C Work Phone: [facility] 04-15-2023 15:03-0400 SaO2% (BldA) [Mass fraction] 99 % Alessio Denbow PA-C Work Phone: [facility] 04-09-2023 12:13-0400 Diastolic blood pressure 72 mm[Hg] Jesusita Older FEATHER EDGER.TAPE MAKING MACHINE OPERATOR Work Phone: [facility] 04-09-2023 12:13-0400 Systolic blood pressure 189 mm[Hg] Jesusita Older FEATHER EDGER.TAPE MAKING MACHINE OPERATOR Work Phone: [facility] 04-09-2023 12:03-0400 Body weight 60.78 kg Jesusita Older FEATHER EDGER.TAPE MAKING MACHINE OPERATOR Work Phone: [facility] 04-09-2023 12:03-0400 Heart rate 60 /min Jesusita Older FEATHER EDGER.TAPE MAKING MACHINE OPERATOR Work Phone: [facility] 04-09-2023 12:03-0400 Respiratory rate 16 /min Jesusita Older FEATHER EDGER.TAPE MAKING MACHINE OPERATOR Work Phone: [facility] 04-09-2023 12:03-0400 SaO2% (BldA) [Mass fraction] 99 % Jesusita Older FEATHER EDGER.TAPE MAKING MACHINE OPERATOR Work Phone: [facility] 01-27-2023 15:24-0400 Body height 157.5 cm Maura Giles MD Work Phone: [facility] 01-27-2023 15:24-0400 Body weight 59.42 kg Maura Giles MD Work Phone: [facility] 01-27-2023 15:24-0400 Diastolic blood pressure 77 mm[Hg] Maura Giles MD Work Phone: [facility] 01-27-2023 15:24-0400 Heart rate 74 /min Maura Giles MD Work Phone: [facility] 01-27-2023 15:24-0400 Respiratory rate 18 /min Maura Giles MD Work Phone: [facility] 01-27-2023 15:24-0400 SaO2% (BldA) [Mass fraction] 99 % Maura Giles MD Work Phone: [facility] 01-27-2023 15:24-0400 Systolic blood pressure 165 mm[Hg] Maura Giles MD Work Phone: [facility] 01-07-2023 13:26-0400 Body height 157.5 cm Jesusita Older FEATHER EDGER.TAPE MAKING MACHINE OPERATOR Work Phone: [facility] 01-07-2023 13:26-0400 Body temperature 97.81 [degF] Jesusita Older FEATHER EDGER.TAPE MAKING MACHINE OPERATOR Work Phone: [facility] 01-07-2023 13:26-0400 Body weight 60.33 kg Jesusita Older FEATHER EDGER.TAPE MAKING MACHINE OPERATOR Work Phone: [facility] 01-07-2023 13:26-0400 Diastolic blood pressure 70 mm[Hg] Jesusita Older FEATHER EDGER.TAPE MAKING MACHINE OPERATOR Work Phone: [facility] 01-07-2023 13:26-0400 Heart rate 58 /min Jesusita Older FEATHER EDGER.TAPE MAKING MACHINE OPERATOR Work Phone: [facility] 01-07-2023 13:26-0400 Respiratory rate 12 /min Jesusita Older FEATHER EDGER.TAPE MAKING MACHINE OPERATOR Work Phone: [facility] 01-07-2023 13:26-0400 SaO2% (BldA) [Mass fraction] 97 % Jesusita Older FEATHER EDGER.TAPE MAKING MACHINE OPERATOR Work Phone: [facility] 01-07-2023 13:26-0400 Systolic blood pressure 140 mm[Hg] Jesusita Older FEATHER EDGER.TAPE MAKING MACHINE OPERATOR Work Phone: [facility] 09-10-2022 14:49-0400 Diastolic blood pressure 92 mm[Hg] Татьяна Barnard MD Work Phone: [facility] 09-10-2022 14:49-0400 Systolic blood pressure 160 mm[Hg] Татьяна Barnard MD Work Phone: [facility] 09-10-2022 13:55-0400 Body temperature 97.5 [degF] Татьяна Barnard MD Work Phone: [facility] 09-10-2022 13:55-0400 Body weight 60.33 kg Татьяна Barnard MD Work Phone: [facility] 09-10-2022 13:55-0400 Heart rate 56 /min Татьяна Barnard MD Work Phone: [facility] 09-10-2022 13:55-0400 Respiratory rate 16 /min Татьяна Barnard MD Work Phone: [facility] 09-10-2022 13:55-0400 SaO2% (BldA) [Mass fraction] 100 % Татьяна Barnard MD Work Phone: [facility] 05-07-2022 12:55-0500 Body height 157.5 cm Татьяна Barnard MD Work Phone: [facility] 05-07-2022 12:55-0500 Body weight 56.7 kg Татьяна Barnard MD Work Phone: [facility] 05-07-2022 12:55-0500 Diastolic blood pressure 76 mm[Hg] Татьяна Barnard MD Work Phone: [facility] 05-07-2022 12:55-0500 Heart rate 69 /min Татьяна Barnard MD Work Phone: [facility] 05-07-2022 12:55-0500 Respiratory rate 12 /min Татьяна Barnard MD Work Phone: [facility] 05-07-2022 12:55-0500 SaO2% (BldA) [Mass fraction] 99 % Татьяна Barnard MD Work Phone: [facility] 05-07-2022 12:55-0500 Systolic blood pressure 122 mm[Hg] Татьяна Barnard MD Work Phone: [facility] 04-21-2022 15:21-0400 Diastolic blood pressure 76 mm[Hg] Татьяна Barnard MD Work Phone: [facility] 04-21-2022 15:21-0400 Systolic blood pressure 130 mm[Hg] Татьяна Barnard MD Work Phone: [facility] 04-21-2022 14:33-0400 Body height 157.5 cm Татьяна Barnard MD Work Phone: [facility] 04-21-2022 14:33-0400 Body temperature 98.6 [degF] Татьяна Barnard MD Work Phone: [facility] 04-21-2022 14:33-0400 Body weight 59.42 kg Татьяна Barnard MD Work Phone: [facility] 04-21-2022 14:33-0400 Heart rate 89 /min Татьяна Barnard MD Work Phone: [facility] 04-21-2022 14:33-0400 Respiratory rate 12 /min Татьяна Barnard MD Work Phone: [facility] 04-21-2022 14:33-0400 SaO2% (BldA) [Mass fraction] 98 % Татьяна Barnard MD Work Phone: [facility] 04-09-2022 17:05-0400 Body height 157.5 cm Татьяна Barnard MD Work Phone: [facility] 04-09-2022 17:05-0400 Body temperature 97.39 [degF] Татьяна Barnard MD Work Phone: [facility] 04-09-2022 17:05-0400 Body weight 61.24 kg Татьяна Barnard MD Work Phone: [facility] 04-09-2022 17:05-0400 Diastolic blood pressure 52 mm[Hg] Татьяна Barnard MD Work Phone: [facility] 04-09-2022 17:05-0400 Heart rate 90 /min Татьяна Barnard MD Work Phone: [facility] 04-09-2022 17:05-0400 Respiratory rate 12 /min Татьяна Barnard MD Work Phone: [facility] 04-09-2022 17:05-0400 SaO2% (BldA) [Mass fraction] 98 % Татьяна Barnard MD Work Phone: [facility] 04-09-2022 17:05-0400 Systolic blood pressure 90 mm[Hg] Татьяна Barnard MD Work Phone: [facility] 04-02-2022 15:23-0400 Body weight 59.88 kg Jesusita Older FEATHER EDGER.TAPE MAKING MACHINE OPERATOR Work Phone: [facility] 04-02-2022 15:23-0400 Diastolic blood pressure 78 mm[Hg] Jesusita Older FEATHER EDGER.TAPE MAKING MACHINE OPERATOR Work Phone: [facility] 04-02-2022 15:23-0400 Heart rate 90 /min Jesusita Older FEATHER EDGER.TAPE MAKING MACHINE OPERATOR Work Phone: [facility] 04-02-2022 15:23-0400 Respiratory rate 16 /min Jesusita Older FEATHER EDGER.TAPE MAKING MACHINE OPERATOR Work Phone: [facility] 04-02-2022 15:23-0400 SaO2% (BldA) [Mass fraction] 99 % Jesusita Older FEATHER EDGER.TAPE MAKING MACHINE OPERATOR Work Phone: [facility] 04-02-2022 15:23-0400 Systolic blood pressure 122 mm[Hg] Jesusita Older FEATHER EDGER.TAPE MAKING MACHINE OPERATOR Work Phone: [facility] 03-20-2022 14:44-0400 Body weight 60.33 kg Jesusita Older FEATHER EDGER.TAPE MAKING MACHINE OPERATOR Work Phone: [facility] 03-20-2022 14:44-0400 Diastolic blood pressure 70 mm[Hg] Jesusita Older FEATHER EDGER.TAPE MAKING MACHINE OPERATOR Work Phone: [facility] 03-20-2022 14:44-0400 Heart rate 68 /min Jesusita Older FEATHER EDGER.TAPE MAKING MACHINE OPERATOR Work Phone: [facility] 03-20-2022 14:44-0400 Respiratory rate 16 /min Jesusita Older FEATHER EDGER.TAPE MAKING MACHINE OPERATOR Work Phone: [facility] 03-20-2022 14:44-0400 Systolic blood pressure 112 mm[Hg] Jesusita Older FEATHER EDGER.TAPE MAKING MACHINE OPERATOR Work Phone: [facility] 03-10-2022 15:52-0400 Body weight 60.33 kg Татьяна Barnard MD Work Phone: [facility] 03-10-2022 15:52-0400 Diastolic blood pressure 58 mm[Hg] Татьяна Barnard MD Work Phone: [facility] 03-10-2022 15:52-0400 Heart rate 74 /min Татьяна Barnard MD Work Phone: [facility] 03-10-2022 15:52-0400 Respiratory rate 14 /min Татьяна Barnard MD Work Phone: [facility] 03-10-2022 15:52-0400 SaO2% (BldA) [Mass fraction] 99 % Татьяна Barnard MD Work Phone: [facility] 03-10-2022 15:52-0400 Systolic blood pressure 92 mm[Hg] Татьяна Barnard MD Work Phone: [facility] 02-21-2022 14:40-0400 Body height 157.5 cm Татьяна Barnard MD Work Phone: [facility] 02-21-2022 14:40-0400 Body temperature 96.4 [degF] Татьяна Barnard MD Work Phone: [facility] 02-21-2022 14:40-0400 Body weight 57.15 kg Татьяна Barnard MD Work Phone: [facility] 02-21-2022 14:40-0400 Diastolic blood pressure 50 mm[Hg] Татьяна Barnard MD Work Phone: [facility] 02-21-2022 14:40-0400 Heart rate 60 /min Татьяна Barnard MD Work Phone: [facility] 02-21-2022 14:40-0400 Respiratory rate 12 /min Татьяна Barnard MD Work Phone: [facility] 02-21-2022 14:40-0400 SaO2% (BldA) [Mass fraction] 99 % Татьяна Barnard MD Work Phone: [facility] 02-21-2022 14:40-0400 Systolic blood pressure 92 mm[Hg] Татьяна Barnard MD Work Phone: [facility] 12-10-2021 13:00-0400 Body height 159 cm Татьяна Barnard MD Work Phone: [facility] 12-10-2021 13:00-0400 Body weight 60.78 kg Татьяна Barnard MD Work Phone: [facility] 12-10-2021 13:00-0400 Diastolic blood pressure 62 mm[Hg] Татьяна Barnard MD Work Phone: [facility] 12-10-2021 13:00-0400 Heart rate 56 /min Татьяна Barnard MD Work Phone: [facility] 12-10-2021 13:00-0400 Respiratory rate 16 /min Татьяна Barnard MD Work Phone: [facility] 12-10-2021 13:00-0400 Systolic blood pressure 128 mm[Hg] Татьяна Barnard MD Work Phone: [facility] Encounters Encounter Date Encounter Type Care Provider Facility Start: 07-09-2023 End: 07-10-2023 [facility] Facility:[facility] Start: 07-02-2023 End: 07-03-2023 [facility] Facility:[facility] Start: 07-02-2023 End: 07-02-2023 [facility] Facility:[facility] Start: 06-30-2023 End: 06-30-2023 [facility] Facility:[facility] Start: 06-01-2023 End: 06-02-2023 [facility] Facility:[facility] Start: 06-01-2023 End: 06-01-2023 Office outpatient visit 25 minutes Enriqueta Marshall APRN.CYTOGENETICIST Work Phone: Internal Medicine Bill Procedures Date Procedure Procedure Detail Performing Clinician Start: 04-09-2023 INFLUENZA VACCINE, P RSV FREE, AGE 65+ YR, HIGH DOSE, QUADRIVALENT (FLUZONE HIGH-DOSE) Jesusita Drake FEATHER EDGER.TAPE MAKING MACHINE OPERATOR Work Phone: Start: 01-27-2023 Ecg routine ecg w/le ast 12 lds w/i&r Maura Giles MD Work Phone: Start: 01-12-2023 Dxa bone density rex dy 1/> sites axial skel Jesusita Drake FEATHER EDGER.TAPE MAKING MACHINE OPERATOR Work Phone: Start: 04-21-2022 INFLUENZA SEASONAL QUADRIVALENT HIGH DOSE AGE 65+ Татьяна Barnard MD Work Phone: Start: 03-31-2022 Inf agent det nuclei c acid clostridium amp probe Jesusita Drake FEATHER EDGER.TAPE MAKING MACHINE OPERATOR Work Phone: Plan of Treatment Date Care Activity Detail Author Start: 04-09-2026 Diabetes Screening Diabetes Screen[facility] Start: 06-03-2025 DIABETES SCREEN DIABETES SCREEN [facility] Start: 06-03-2025 Diabetes Screening Diabetes Screenin [facility] Start: 04-17-2025 DIABETES SCREEN DIABETES SCREEN [facility] Start: 04-10-2025 DIABETES SCREEN DIABETES SCREEN [facility] Start: 04-03-2025 DIABETES SCREEN DIABETES SCREEN [facility] Start: 03-20-2025 DIABETES SCREEN DIABETES SCREEN [facility] Start: 01-08-2025 DIABETES SCREEN DIABETES SCREEN [facility] Start: 12-13-2024 DIABETES SCREEN DIABETES SCREEN [facility] Start: 06-04-2024 DIABETES SCREEN DIABETES SCREEN [facility] Start: 04-15-2024 RSV Vaccine (1 - 1-d ose 60+ series) RSV Vaccine (1 - 1-dose 60+ series) [facility] Immunizations Immunization Date Immunization Notes Care Provider Michelle novak 04-09-2023 influenza (HD-IIV4) vaccine, age 65+ yr, high dose, quadrivalent, PF (FLUZONE HIGH-DOSE) Jesusita Drake FEATHER EDGER.DARSHAN Work Phone: [facility] 04-21-2022 influenza, high-dose , quadrivalent vaccine (FLUZONE HIGH DOSE QUADRIVALENT) Татьяна Barnard MD Work Phone: [facility] Work Phone: 04-21-2022 influenza virus vacc ine, unspecified formulation Татьяна Barnard MD Work Phone: [facility] 04-02-2021 influenza (aIIV4) vaccine, age 65+ yr, quadrivalent, PF (FLUAD QUAD) Brittani Oswald MA [facility] Work Phone: 04-02-2021 influenza, high dose seasonal, preservative-free Татьяна Barnard MD Work Phone: [facility] 08-24-2020 COVID-19 vaccine, fu ll dose (MODERNA) Татьяна Barnard MD Work Phone: [facility] Work Phone: 07-27-2020 COVID-19 vaccine, fu ll dose (MODERNA) Татьяна Barnard MD Work Phone: [facility] Work Phone: 03-08-2020 influenza, injectabl e, quadrivalent, preservative free Татьяна Barnard MD Work Phone: [facility] Work Phone: 03-08-2020 pneumococcal polysaccharide vaccine, 23 valent Татьяна Barnard MD Work Phone: [facility] Work Phone: 03-31-2019 Seasonal trivalent influenza vaccine, adjuvanted, preservative free Brittani Oswald MA [facility] Work Phone: 03-30-2018 Seasonal trivalent influenza vaccine, adjuvanted, preservative free Brittani Oswald MA [facility] Work Phone: 03-30-2017 influenza, high dose seasonal, preservative-free Татьяна Barnard MD Work Phone: [facility] Work Phone: 03-30-2017 influenza, injectabl e, quadrivalent, preservative free Brittani Oswald [facility] Work Phone: 03-30-2017 influenza, seasonal, injectable, preservative free Татьяна Barnard MD Work Phone: [facility] Work Phone: 03-26-2016 influenza, high dose seasonal, preservative-free Татьяна Barnard MD Work Phone: [facility] Work Phone: 01-28-2016 pneumococcal polysaccharide vaccine, 23 valent Татьяна Barnard MD Work Phone: [facility] Work Phone: 04-25-2015 pneumococcal conjuga te vaccine, 13 valent Татьяна Barnard MD Work Phone: [facility] Work Phone: 03-31-2014 influenza virus vacc ine, unspecified formulation Татьяна Barnard MD Work Phone: [facility] 06-07-2013 tetanus toxoid, redu dionicio diphtheria toxoid, and acellular pertussis vaccine, adsorbed Татьяна Barnard MD Work Phone: [facility] 07-15-2011 influenza virus vacc ine, unspecified formulation Татьяна Barnard MD Work Phone: [facility] 04-08-2010 influenza virus vacc ine, unspecified formulation Татьяна Barnard MD Work Phone: [facility] Work Phone: 07-30-2000 pneumococcal polysaccharide vaccine, 23 valent Татьяна Barnard MD Work Phone: [facility] Work Phone: 10-28-1995 diphtheria and tetan us toxoids, adsorbed for pediatric use Татьяна Barnard MD Work Phone: [facility] Work Phone: Payers Date Payer Category Payer Medicare [employer] MEDICARE HU[employer] MEDICARE PPO [id number] 2021-Present [id number] [id number] 2021 Medicare [employer] MEDICARE [employer] MEDICARE PPO [id number] 2021-Present [id number] [id number] 2021 Medicare [id number] Social History Date Type Detail Facility Start: 10-10-2014 End: 02-21-2022 Tobacco smoking status NHIS Ex-smoker [facility] End: 07-06-1976 History of tobacco use Current smoker [facility] Start: 06-11-2021 End: 06-01-2023 Alcohol intake Current non-drinker of alcohol (finding) [facility] Start: 1935 Sex Assigned At Not on file [facility] Start: 11-30-2021 End: 05-07-2022 Exposure to SARS-CoV-2 (event) Not sure [facility] Work Phone: End: 07-06-1976 History of tobacco use Cigarette Smoker [facility] Work Phone: Start: 10-10-2014 End: 02-21-2022 Tobacco use and exposure Smokeless tobacco non-user [facility] Work Phone: Start: 02-21-2022 Tobacco Comment Quit 4- 5 cig per day [facility] Start: 03-11-2022 End: 04-02-2022 Exposure to SARS-CoV-2 (event) Unable to assess [facility] Start: 06-04-2020 End: 01-07-2023 History of Social function [facility] Work Phone: Start: 06-04-2020 End: 01-07-2023 Tobacco use panel [facility] Work Phone: Adult Depression Screening Assessment 0 [facility] Work Phone: Medical Equipment Procedure Code Equipment Code Equipment Origin al Text Equipment Identifier Dates [id number] Implant - [id number] Start: 12-14-2012 Clinical Notes 12-14-2012 to 07-09-2023 Patient InstructionsBroEnriqueta de los santos APRN.CYTOGENETICIST - 06/01/2023 2:20 PM ESTTelephone Encounter - Margie Garcia - 05/07/2023 11:22 AM Toshia Camargo APRN.TAPE MAKING MACHINE OPERATOR - 05/01/2023 12:10 PM EDT Note Date & Type Note Facility 07-09-2023 Note HNO ID: [id number] Author: ENRIQUETA MARSHALL APRN.CYTOGENETICIST Service: ? Author Type: Nurse Specialist Type: [...] 146/80 09/10/2022 160/92 06/11/2022 110/60 05/07/2022 122/76 Lockstitch Shoulder Joiner: Dr Sewell, has upcoming appointment in October [...] tablet by mouth (more content not included)... [facility] 07-02-2023 Note HNO ID: [id number] Author: ENRIQUETA MARSHALL APRN.CYTOGENETICIST Service: ? Author Type: Nurse Specialist Type: [...] 160/92 06/11/2022 110/60 05/07/2022 122/76 04/21/2022 130/76 Lockstitch Shoulder Joiner: Dr Sewell, has upcoming appointment in October EP: Dr Giles. [facility], July appointment. Review of Systems [...] timolol maleate (TIMOPTIC (more content not included)... [facility] 06-30-2023 Note HNO ID: [id number] Author: Enriqueat Marshall APRN.CYTOGENETICIST Service: ? Author Type: Nurse Specialist Type: [...] 110/60 05/07/2022 122/76 04/21/2022 130/76 04/09/2022 90/52 Lockstitch Shoulder Joiner: Dr Sewell, has upcoming appointment EP: Dr [...] IF UNABLE, PLEASE REFER TO [facility]. DX: EDEMA latanoprost (XALATAN) 0.005 % ophthalmic solution 1 Drop daily at bedtime. brimonidine-timolol (COMBIGAN) 0.2-0.5 % ophthalmic solution Use in both eyes. T (more content not included)... [facility] 06-01-2023 Note HNO ID: [id number] Author: Enriqueta Marshall APRN.CYTOGENETICIST Service: ? Author Type: Nurse Specialist Type: [...] 130/76 04/09/2022 90/52 04/02/2022 122/78 03/20/2022 112/70 Lockstitch Shoulder Joiner: Dr Sewell, has upcoming appointment EP: Dr [...] IF UNABLE, PLEASE REFER TO [facility]. DX: EDEMA latanoprost (XALATAN) 0.005 % ophthalmic [...] keratoderma Lichen sclerosis (more content not included)... [facility] 06-01-2023 Instructions Enriqueta Marshall APRN.CNS - [...] dizzy or fatigued. documented in this encounter [facility] 06-01-2023 History of Presen t illness Narrative [...] 130/76 04/09/2022 90/52 04/02/2022 122/78 03/20/2022 112/70 Lockstitch Shoulder Joiner: Dr Sewell, has upcoming appointment EP: Dr [...] IF UNABLE, PLEASE REFER TO [facility]. DX: EDEMA latanoprost (XALATAN) 0.005 % ophthalmic [...] 2 (age, bleeding) At risk for stroke [id number] = 4 (HTN, age2, female gender) Benign [...] 4 - Moderate documented in this encounter [facility] 05-07-2023 Miscellaneous Notes Patient calling about hydralazine. Advised patient to check with pharmacy. documented in this encounter [facility] 05-01-2023 Note HNO ID: [id number] Author: Toshia Drake APRN.TAPE MAKING MACHINE OPERATOR Service: ? Author Type: Nurse Practitioner Type: [...] afternoon. She had an appointment with her equine dentist yesterday, BP was 130/68. She brought her [...] 2 (age, bleeding) At risk for stroke [id number] = 4 (HTN, age2, female gender) Benign [...] May. right eye Jun. left eye - [facility] . Dr Gao REPAIR [...] IF UNABLE, PLEASE REFER TO [facility]. DX: EDEMA latanoprost (XALATAN) 0.005 % ophthalmic solution 1 Drop daily at bedtime. clob (more content not included)... [facility] 05-01-2023 History of Presen t illness [...] afternoon. She had an appointment with her equine dentist yesterday, BP was 130/68. She brought her [...] 2 (age, bleeding) At risk for stroke [id number] = 4 (HTN, age2, female gender) Benign [...] - May. right eye left eye - [facility] . Dr Gao REPAIR [...] IF UNABLE, PLEASE REFER TO [facility]. DX: EDEMA latanoprost (XALATAN) 0.005 % ophthalmic [...] Toshia Drake APRN.CNP documented in this encounter [facility] 04-15-2023 Note HNO ID: [id number] Author: Alessio Alexander PA-C Service: ? Author Type: Physician Psychiatry Resident Type: Progress Notes Filed: 04/15/2023 5:01 PM [...] 2 (age, bleeding) At risk for stroke [id number] = 4 (HTN, age2, female gender) Benign [...] Glaucoma - right eye left eye - [facility] . Dr Gao REPAIR [...] IF UNABLE, PLEASE REFER TO [facility]. DX: EDEMA latanoprost (XALATAN) 0.005 % ophthalmic [...] Onset Heart Mother (more content not included)... [facility] 04-15-2023 Instructions Alessio Alexander PA-C - 04/15/2023 3:45 PM EDT TrueBP average on the machine 217/67 - left arm sitting. Manual recheck 200/78 Continue on Carvedilol 12.5 mg twice daily, Losartan 50 mg twice daily. Will increase hydralazine to 10 mg three times daily. documented in this encounter [facility] 04-15-2023 History of Presen t illness Narrative [...] 2 (age, bleeding) At risk for stroke [id number] = 4 (HTN, age2, female gender) Benign [...] - right eye Jun. left eye - [facility] . Dr Gao REPAIR [...] IF UNABLE, PLEASE REFER TO [facility]. DX: EDEMA latanoprost (XALATAN) 0.005 % ophthalmic [...] Alessio Alexander PA-C documented in this encounter [facility] 04-15-2023 Nurse Note Home BP monitor left arm :Error code E2, patient did not bring monitor book with her to know what the error code is documented in this encounter [facility] 04-10-2023 Miscellaneous Notes TC to patient who verbalized understanding of providers message below and has no questions at this time. FREDDY Chavez ----- Message from Jesusita Drake APRN.TAPE MAKING MACHINE OPERATOR sent at 04/10/2023 6:59 AM EDT ----- Please let patient know blood work is all within acceptable ranges. HgbA1c is now in normal range Thank you Jesusita Drake APRN.TAPE MAKING MACHINE OPERATOR documented in this encounter [facility] 04-09-2023 Note HNO ID: [id number] Author: Kirstie Arguello, RT(R) Service: Radiology Author [...] Arguello RT(R) April 09, 2023 1:18 PM [facility] 04-09-2023 Note HNO ID: [id number] Author: Jesusita Drake APRN.TAPE MAKING MACHINE OPERATOR Service: ? Author Type: Nurse Practitioner Type: [...] 2 (age, bleeding) At risk for stroke [id number] = 4 (HTN, age2, female gender) Benign [...] Glaucoma - right eye left eye - [facility] . Dr Gao REPAIR [...] IF UNABLE, PLEASE REFER TO [facility]. DX: EDEMA alendronate (FOSAMAX) 70 mg tablet [...] mg tablet T (more content not included)... [facility] 04-09-2023 Instructions Jesusita Drake APRN.TAPE MAKING MACHINE OPERATOR - 04/09/2023 12:49 PM EDT Please take over the counter Vit d 3 2000 IU daily and get [id number] mg per day calcium. Calcium is best [...] fat, 8 ounces 415 mg per serving Sweet Grass juice, calcium-fortified, 6 ounces 375 mg per [...] calcium sulfate, cup 253 mg per serving Hixson, pink, canned, solids with bone, 3 ounces 181 mg per serving Cottage cheese, 1% milk fat, 1 cup 138 mg per serving Instant breakfast drink, various flavors and brands, powder prepared with water, 8 ounces 105-250 mg per serving Frozen yogurt, vanilla, soft serve, cup 103 mg per serving Qjqfp-vf-fhq cereal, calcium-fortified, 1 cup 100-1,000 mg per serving Turnip greens, fresh, boiled, cup 99 mg per serving Kale, fresh, cooked, 1 cup 94 mg per serving Kale, raw, chopped, 1 cup 90 mg per serving Tofu, soft, made with calcium sulfate, cup 138 mg per serving Ice cream, vanilla, cup 84 mg per serving Soy beverage, calcium-fortified, 8 ounces 80-500 mg per serving Irish cabbage, bok [place], raw, shredded, 1 cup 74 mg per serving Bread, white, 1 slice 73 mg per serving Pudding, chocolate, ready to eat, refrigerated, 4 ounces 55 mg per serving Tortilla, corn, kkypf-qd-huiu/porter, one 6 diameter 46 mg per serving Tortilla, flour, burjj-ct-xmva/porter, one 6 diameter 32 mg per serving Sour cream, reduced fat, cultured, 2 tablespoons 31 mg per serving Bread, whole-wheat, 1 slice 30 mg per serving Broccoli, raw, cup 21 mg per serving Cheese, cream, regular, 1 tablespoon 14 mg per serving documented in this encounter [facility] 04-09-2023 History of Presen t illness Narrative [...] 2 (age, bleeding) At risk for stroke [id number] = 4 (HTN, age2, female gender) Benign [...] May. right eye Jun. left eye - [facility] . Dr Gao REPAIR [...] IF UNABLE, PLEASE REFER TO [facility]. DX: EDEMA alendronate (FOSAMAX) 70 mg tablet [...] Jesusita Drake APRN.CNP documented in this encounter [facility] 03-23-2023 Miscellaneous Notes Patient has been identified [...] advise. Allyson Gaxiola documented in this encounter [facility] 02-20-2023 Miscellaneous Notes Patient has been identified [...] Margie Morgan Pss documented in this encounter [facility] 02-04-2023 Miscellaneous Notes Noted Jesusita Drake APRN.CNP [...] until her 04/09/23 appointment with Jesusita Drake FATBACK TRIMMER and discuss it then. Cheryl George RN [...] Brianne Toribio RN documented in this encounter [facility] 01-27-2023 Note HNO ID: [id number] Author: Maura Giles MD Service: ? Author Type: Physician Type: Progress Notes Filed: 02/02/2023 7:41 PM Note Text: PRIMARY CARE PHYSICIAN: Татьяна Barnard [address] [place] [address] REFERRING PHYSICIAN: Fredis Marie MD ([facility]) [address] [facility] [address] Patient Care Team: Татьяна Barnard MD as PCP - General (Internal Medicine) Fredis Marie as Specialty Efficiency Clerk (Cardiology) Yuriy Collins DO as Specialty Efficiency Clerk (Gastroenterology) CHIEF COMPLAINT: Evaluation for stroke prevention HISTORY OF PRESENT ILLNESS: Ms. Stoner is a 87 year old female who presents today for evaluation, referred by [facility], accompanied today by her daughter. [...] May. right eye Jun. left eye - [facility] . Dr Gao REPAIR [...] mouth twice da (more content not included)... [facility] 01-27-2023 History of Presen t illness Narrative PRIMARY CARE PHYSICIAN: Татьяна Barnard [address] [place] [address] REFERRING PHYSICIAN: Fredis Marie MD ([facility]) [address] [facility] [address] [facility] [id number] Patient Care Team: Татьяна Barnard MD as PCP - General (Internal Medicine) Cynthia, Fredis Salazar as Specialty Efficiency Clerk (Cardiology) Yuriy Collins DO as Specialty Efficiency Clerk (Gastroenterology) CHIEF COMPLAINT: Evaluation for stroke prevention HISTORY OF PRESENT ILLNESS: Ms. Stoner is a 87 year old female who presents today for evaluation, referred by [facility], accompanied today by her daughter. [...] - May. right eye left eye - [facility] . Dr Gao REPAIR [...] IF UNABLE, PLEASE REFER TO [facility]. DX: EDEMA latanoprost (XALATAN) 0.005 % ophthalmic [...] bradycardia 54 bpm; PACs; normal conduction intervals (NY 192 ms, QRS 88 ms); QTc 403 [...] non-implanting physician -- either PCP or general chief operating officer or GI specialist that outlines the rationale [...] the input from GI, PCP and general chief operating officer in this regard but as I stated [...] literature and also directed them to the [employer] website for additional educational information. They will give this option consideration, and if they determined they would like to pursue Watchman implant AND her physicians including Dr. Collins consider the risk:benefit of long chain dyeing machine operator oral anticoagulation therapy to be unfavorable, [...] 4 - Moderate documented in this encounter [facility] 01-27-2023 Nurse Note Patient denies any cardiac issues or symptoms. documented in this encounter [facility] 01-12-2023 Note HNO ID: [id number] Author: RT Bernadette(R) Service: ? Author Type: [...] RT Bernadette(R) January 12, 2023 1:56 PM [facility] 01-12-2023 History of Presen t illness [...] 2023 1:56 PM documented in this encounter [facility] 01-07-2023 Note HNO ID: [id number] Author: Jesusita Drake APRN.TAPE MAKING MACHINE OPERATOR Service: ? Author Type: Nurse Practitioner Type: [...] May. right eye Jun. left eye - [facility] . Dr Gao REPAIR [...] IF UNABLE, PLEASE REFER TO [facility]. DX: EDEMA latanoprost (XALATAN) 0.005 % ophthalmic solution 1 Drop daily at bedtime. clobetasol (TEMOVATE) 0.05 % ointment Apply 1 application to affected area 3 times a WEEK. TO AFFECTED AREA. brimonidine-timolol (COMBIGAN) 0.2-0.5 % ophthalmic solution Use in both eyes. TRAVATAN Z 0.004 % Drop daily at (more content not included)... [facility] 01-07-2023 History of Presen t illness [...] May. right eye Jun. left eye - [facility] . Dr Gao REPAIR [...] IF UNABLE, PLEASE REFER TO [facility]. DX: EDEMA latanoprost (XALATAN) 0.005 % ophthalmic [...] Jesusita Drake APRN.CNP documented in this encounter [facility] 12-16-2022 Miscellaneous Notes Please see Kayla Grace's [...] Margie Wheeler RN documented in this encounter [facility] 12-10-2022 Note HNO ID: [id number] Author: Jesusita Drake APRN.CNP Service: ? Author [...] vomiting, or abdominal pain. Last Hgb at [facility] was over 11 which was improved since prior to EGD. Because of this, patient is being recommended to a physician in [place] to have a possible watchman procedure completed [...] Glaucoma - right eye left eye - [facility] . Dr Gao REPAIR [...] TO AFFECTED A (more content not included)... [facility] 10-10-2022 Miscellaneous Notes Patient notified. ----- [...] Татьяна Barnard MD documented in this encounter [facility] 10-08-2022 Miscellaneous Notes I sent pot chl tablets as requested regularly a Patient calling regarding her potassium chloride 10mEq prescription. Patient states capsules were ordered for her yesterday and she is requesting tablets. Please send order to Marla Khan. Thank you. documented in this encounter [facility] 10-07-2022 Note HNO ID: [id number] Author: Татьяна Barnard MD Service: ? Author [...] an upcoming EGD by Dr. Collins the computer animator. No problem-specific Assessment AND Plan notes found [...] May. right eye Jun. left eye - [facility] . Dr Gao REPAIR [...] No dysphagia/odynophagia, probl (more content not included)... [facility] 09-10-2022 Note HNO ID: [id number] Author: Ттаьяна Barnard MD Service: ? Author Type: Physician [...] - May. right eye left eye - [facility] . Dr Gao REPAIR [...] abnormalities Eyes: Anicteric (more content not included)... [facility] 09-10-2022 History of Presen t illness [...] - May. right eye left eye - [facility] . Dr Gao REPAIR [...] Татьяна Barnard MD documented in this encounter [facility] 08-04-2022 Miscellaneous Notes Pt called and is [...] call and advise. documented in this encounter [facility] 07-02-2022 Miscellaneous Notes Patient calling back Dr [...] Collins's office. States she seen Celeste Bell FATBACK TRIMMER in Dr. Collins's office GI. Her chief operating officer is Dr. Frey. Stool test was positive for blood and blood counts slowly decreasing. Looks like she was referred to GI in the past, she needs to call and be seen with them MARIIA especially since on the Xarelto from cardiology for her a. Fib. Can we also find out who she sees for GI and cardiology? Thanks documented in this encounter [facility] 07-01-2022 Miscellaneous Notes Pt requesting 90 day [...] Felicity Sprague LPN documented in this encounter [facility] 06-13-2022 Miscellaneous Notes No TSH level in [...] Pt daughter, Jessa, calling to state pt's chief operating officer wanted thyroid levels rechecked. Pt is coming into office early next week to have labs drawn for PCP (CMP, CBC). Jessa asking if PCP will add thyroid labs on so pt get it all done with 1 lab drawn. Advised PCP is out of office until Thursday. Please advise and notify Jessa. Richie Johnson LPN documented in this encounter [facility] documented as of this encounter (statuses as of 01/28/2023) [facility] History of Past illness Narrative* Problem Noted [...] of this encounter (statuses as of 02/03/2023) [facility] History of Past illness Narrative* Problem Noted [...] of this encounter (statuses as of 02/04/2023) [facility] History of Past illness Narrative* Problem Noted [...] of this encounter (statuses as of 02/20/2023) [facility] History of Past illness Narrative* Problem Noted [...] of this encounter (statuses as of 03/23/2023) [facility] History of Past illness Narrative* Problem Noted [...] of this encounter (statuses as of 04/10/2023) [facility] History of Past illness Narrative* Problem Noted [...] of this encounter (statuses as of 04/15/2023) [facility] History of Past illness Narrative* Problem Noted [...] of this encounter (statuses as of 04/16/2023) [facility] History of Past illness Narrative* Problem Noted [...] of this encounter (statuses as of 05/03/2023) [facility] History of Past illness Narrative* Problem Noted [...] of this encounter (statuses as of 05/05/2023) [facility] History of Past illness Narrative* Problem Noted [...] of this encounter (statuses as of 05/07/2023) [facility] History of Past illness Narrative* Problem Noted [...] of this encounter (statuses as of 06/02/2023) [facility] History of Present illness Narrative* Татьяна Barnard [...] May. right eye Jun. left eye - [facility] . Dr Gao REPAIR [...] control. Татьяна Barnard MD documented [facility] History of Present illness Narrative* Татьяна Barnard [...] - May. right eye left eye - [facility] . Dr Gao REPAIR [...] control. Татьяна Barnard MD documented in this encounter[facility] Miscellaneous Notes* Telephone Encounter - Татьяна Barnard [...] for possible early pneumonia. documented in this encounterOhio[facility] Miscellaneous Notes* Telephone Encounter - Joyce Dewey [...] day appt with pcp. documented in this encounterOhio[facility] Miscellaneous Notes* Telephone Encounter - Olga Juarez LPN - 04/10/2022 11:39 AM EDT Patient currently getting xray now * Telephone Encounter - Jesusita Drake APRN.CNP - 04/10/2022 11:34 AM EDT Patient saw Dr. Barnard yesterday and was told to have follow up chest xray for continued cough. Order placed. Jesusita Drake APRN.CNP documented in this encounterOhio[facility] History of Present illness Narrative* Татьяна Barnard [...] Glaucoma - right eye left eye - [facility] . Dr Gao REPAIR [...] BLD Татьяна Barnard MD documented in this encounterOhio[facility] Miscellaneous Notes* Telephone Encounter - Haydee Mccauley [...] cardiology as requested. Thank you Jesusita Drake APRN.TAPE MAKING MACHINE OPERATOR * Telephone Encounter - Brianne Toribio RN [...] Squires. Faxed to Tex Squires CNP at [phone]. Brianne Toribio RN documented in this encounterOhio[facility] Miscellaneous Notes* Telephone Encounter - Haydee Mccauley [...] you Jesusita Drake APRN.CNP documented in this encounterOhio[facility] History of Present illness Narrative* Jesusita Drake [...] Glaucoma - right eye left eye - [facility] . Dr Gao REPAIR [...] IF UNABLE, PLEASE REFER TO [facility]. DX: EDEMA latanoprost (XALATAN) 0.005 % ophthalmic [...] 65+ Completed DATA REVIEWED: Outside chart from [facility] reviewed. ASSESSMENT/PLAN: 1. Acute cough - ICD9: [...] plan. Jesusita Drake APRN.CNP documented in this encounterOhio[facility] Miscellaneous Notes* Telephone Encounter - Jesusita Drake APRN.CNP - 03/31/2022 7:24 AM EDT Reviewed in appointment today. Jesusita Drake APRN.CNP * Telephone Encounter - Abimbola Abbott LPN - 03/28/2022 4:34 PM EDT Patient daughter Verona Ragland returned call and went over notes from Jesusita Drake FATBACK TRIMMER with understanding. Daughter said mother told her [...] Jessa calls and states patient had see chief operating officer Tex Squires. Tex has some concerns that [...] advise, Yolette Pérez RN documented in this encounterOhiohealth [facility] Miscellaneous Notes* Telephone Encounter - Haydee Mccauley [...] you Jesusita Drake APRN.CNP documented in this encounterOhiohealth [facility] History of Present illness Narrative* Jesusita Drake [...] this office with average BP's in the [id number] range. . Last 3 Encounter BP Readings: [...] Glaucoma - right eye left eye - [facility] . Dr Gao REPAIR [...] IF UNABLE, PLEASE REFER TO [facility]. DX: EDEMA latanoprost (XALATAN) 0.005 % ophthalmic [...] plan. Jesusita Drake APRN.CNP documented in this encounterOhiohealth [facility] Miscellaneous Notes* Telephone Encounter - Shanita West [...] patient. Alessio Betancourt Pss documented in this encounterOhiohealth [facility] History of Present illness Narrative* Татьяна Barnard [...] - May. right eye left eye - [facility] . Dr Gao REPAIR [...] DIFF Татьяна Barnard MD documented in this encounterOhiohealth [facility] History of Present illness Narrative* Татьяна Barnard [...] - May. right eye left eye - [facility] . Dr Gao REPAIR [...] sweating. Татьяна Barnard MD documented in this encounterOhiohealth [facility] Center08-18-2022 Miscellaneous Notes* Telephone Encounter - Richie Talamantes [...] who patient spoke with, General Surgery in [place] will see patient. left patient message to call and schedule. Gave direct number [phone]. Richie Fernandes documented in this encounterOhiohealth Arthur [facility]07-30-2022 Miscellaneous Notes* Telephone Encounter - Alessio Head - 01/25/2022 12:08 PM EDT T/c to pt, she stated that she was not interested in scheduling at this time. She is following up with a kidney doctor and GI specialist at the [facility]. Thank you, Alessio Head * Telephone Encounter - Olga Juarez LPN - 01/09/2022 10:37 AM EDT Left message to return call to schedule. * Telephone Encounter - Татьяна Banrard MD - 01/08/2022 11:33 PM EDT Please set reinier up to see us in the next couple weeks for her results Regards, Татьяна Barnard MD documented in this encounterOhiohealth Arthur [facility]07-23-2022 Miscellaneous Notes* Telephone Encounter - Yolette Caban - 01/18/2022 12:45 PM EDT Spoke with patient and she does not want to see a computer animator outside of [place]. Patient will call [facility] to schedule locally. Yolette Caban * Telephone [...] to schedule appt with general surgery at [facility], but they would not let her schedule, [...] test. Toshia Drake APRN.CNP documented in this encounterOhiohealth Arthur [facility] Center07-21-2022 Miscellaneous Notes* Telephone Encounter - Kayla Grace APRN.CNP - 01/16/2022 12:38 PM EDT Vitamin D level ordered to be drawn with next lab draw. Kayla Grace APRN.CNP * Telephone Encounter - Claire Estes RN - 01/16/2022 10:28 AM EDT Refill request received from pharmacy. Patient last seen in the office on 10/29/21. Claire Estes RN documented in this encounterOhiohealth Arthur [facility] Center06-29-2022 Miscellaneous Notes* Telephone Encounter - Yany Garza [...] you Jesusita Drake APRN.CNP documented in this encounterOhiohealth Arthur [facility], [facility] Center06-14-2022 History of Present illness Narrative* Татьяна Barnard [...] May. right eye Jun. left eye - [facility] . Dr Gao REPAIR [...] May. right eye Jun. left eye - [facility] . Dr Gao REPAIR [...] BLD Татьяна Barnard MD documented in this encounterOhiohealth Arthur [facility] Center03-28-2022 Miscellaneous Notes* Telephone Encounter - Cheryl George [...] Please call and advise. documented in this encounterOhiohealth Arthur [facility] Center06-18-2013 History of Past illness Narrative* Problem Noted [...] of this encounter (statuses as of 09/23/2021) [facility] History of Past illness Narrative* Problem Noted [...] of this encounter (statuses as of 12/10/2021) [facility] History of Past illness Narrative* Problem Noted [...] of this encounter (statuses as of 12/25/2021) [facility] History of Past illness Narrative* Problem Noted [...] of this encounter (statuses as of 01/16/2022) [facility] History of Past illness Narrative* Problem Noted [...] of this encounter (statuses as of 01/18/2022) [facility] History of Past illness Narrative* Problem Noted [...] of this encounter (statuses as of 01/25/2022) [facility] History of Past illness Narrative* Problem Noted [...] of this encounter (statuses as of 02/21/2022) [facility] History of Past illness Narrative* Problem Noted [...] of this encounter (statuses as of 03/10/2022) [facility] of Past illness Narrative* Problem Noted [...] of this encounter (statuses as of 03/12/2022) [facility] of Past illness Narrative* Problem Noted [...] of this encounter (statuses as of 03/14/2022) [facility] of Past illness Narrative* Problem Noted [...] of this encounter (statuses as of 03/20/2022) [facility] of Past illness Narrative* Problem Noted [...] of this encounter (statuses as of 03/21/2022) [facility] of Past illness Narrative* Problem Noted [...] of this encounter (statuses as of 04/02/2022) [facility] of Past illness Narrative* Problem Noted [...] of this encounter (statuses as of 04/02/2022) [facility] History of Past illness Narrative* Problem Noted [...] of this encounter (statuses as of 04/02/2022) [facility] History of Past illness Narrative* Problem Noted [...] of this encounter (statuses as of 04/04/2022) [facility] of Past illness Narrative* Problem Noted [...] of this encounter (statuses as of 04/10/2022) [facility] of Past illness Narrative* Problem Noted [...] of this encounter (statuses as of 04/10/2022) [facility] of Past illness Narrative* Problem Noted [...] of this encounter (statuses as of 04/11/2022) [facility] of Past illness Narrative* Problem Noted [...] of this encounter (statuses as of 04/14/2022) [facility] of Past illness Narrative* Problem Noted [...] of this encounter (statuses as of 04/21/2022) [facility] of Past illness Narrative* Problem Noted [...] of this encounter (statuses as of 05/07/2022) [facility] of Past illness Narrative* Problem Noted [...] of this encounter (statuses as of 06/13/2022) [facility] of Past illness Narrative* Problem Noted [...] of this encounter (statuses as of 07/03/2022) [facility] of Past illness Narrative* Problem Noted [...] of this encounter (statuses as of 07/03/2022) [facility] of Past illness Narrative* Problem Noted [...] of this encounter (statuses as of 08/05/2022) [facility] of Past illness Narrative* Problem Noted [...] of this encounter (statuses as of 09/10/2022) [facility] of Past illness Narrative* Problem Noted [...] of this encounter (statuses as of 10/09/2022) [facility] of Past illness Narrative* Problem Noted [...] of this encounter (statuses as of 10/11/2022) [facility] of Past illness Narrative* Problem Noted [...] of this encounter (statuses as of 12/17/2022) [facility] of Past illness Narrative* Problem Noted [...] of this encounter (statuses as of 01/08/2023) [facility] [place] [facility] Diagnosis Encounter for Medicare annual wellness exam- Primary Routine general medical examination at a health care facility Mixed hyperlipidemia Essential hypertension Unspecified essential hypertension Hypothyroidism, unspecified type documented in this encounter [facility] CenterEvalun[facility] [place] [facility]* Diagnosis Hypertensive kidney disease with stage 3b chronic kidney disease (HCC)- Primary documented in this encounter [facility] [place] [facility]* Diagnosis History of osteoporosis- Primary Personal history of other musculoskeletal disorders shelter use of alendronate therapy documented in this encounter [facility]Eval[facility] [place] [facility]* Diagnosis Anemia, unspecified type- Primary Positive fecal occult blood test Nonspecific abnormal finding in stool contents documented in this encounter [facility]Eval[facility] [place] [facility]* Diagnosis Sweating profusely- Primary Generalized hyperhidrosis Essential hypertension Unspecified essential hypertension Hypotension, unspecified hypotension type Chest pain, unspecified type Diarrhea, unspecified type documented in this encounter [facility] [place] [facility]* Diagnosis Essential hypertension- Primary Unspecified essential hypertension Hypothyroidism, unspecified type Persistent atrial fibrillation (HCC) Atrial fibrillation Other fatigue [facility] [place] [facility]* Diagnosis Nausea Nausea alone documented in this encounter [facility] note* Diagnosis Acute cough- Primary Nausea Nausea alone Diarrhea, unspecified type Fatigue, unspecified type Anemia, unspecified type documented in this encounter [facility] note* Diagnosis Diarrhea, unspecified type- Primary documented in this encounter [facility] note* Diagnosis Acute cough- Primary Hypokalemia Hypopotassemia Shortness of breath Nausea Nausea alone Edema of both lower extremities documented in this encounter [facility] note* Diagnosis Congestive heart failure, unspecified HF chronicity, unspecified heart failure type (HCC)- Primary Essential hypertension Unspecified essential hypertension Mixed hyperlipidemia Pedal edema Edema Acute cough Hypokalemia Hypopotassemia Hypothyroidism, unspecified type documented in this encounter [facility] note* Diagnosis Acute cough- Primary documented in this encounter [facility] note* Diagnosis Hypotension, unspecified hypotension type- Primary GERI (acute kidney injury) (HCC) Acute kidney failure, unspecified documented in this encounter [facility] note* Diagnosis Anemia, unspecified type- Primary documented in this encounter [facility] note* Diagnosis Pleural effusion- Primary Unspecified pleural effusion Hypothyroidism, unspecified type Atelectasis Pulmonary collapse History of recent pneumonia Need for influenza vaccination Need for prophylactic vaccination and inoculation against influenza Anemia, unspecified type Congestive heart failure, unspecified HF chronicity, unspecified heart failure type (HCC) Stage 3b chronic kidney disease (HCC) documented in this encounter [facility] note* Diagnosis Pulmonary hypertension (HCC)- Primary Other chronic pulmonary heart diseases Pedal edema Edema Permanent atrial fibrillation (HCC) Atrial fibrillation Mixed hyperlipidemia Hypertensive kidney disease with stage 3b chronic kidney disease (HCC) Essential hypertension Unspecified essential hypertension Stage 3a chronic kidney disease (HCC) documented in this encounter [facility] note* Diagnosis Anemia, unspecified type- Primary Essential hypertension Unspecified essential hypertension Permanent atrial fibrillation (HCC) Atrial fibrillation Hypothyroidism, unspecified type Fatigue, unspecified type documented in this encounter [facility] note* Diagnosis Essential hypertension- Primary Unspecified essential hypertension 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 CenterEval[facility] [place] [facility]* Diagnosis Age related osteoporosis, unspecified pathological fracture presence- Primary documented in this encounter [facility] note* Diagnosis Nausea Nausea alone documented in this encounter [facility] note* Diagnosis Hypertensive kidney disease with stage 3b chronic kidney disease (HCC)- Primary Mixed hyperlipidemia Osteoporosis without current pathological fracture, unspecified osteoporosis type Mid back pain Backache, unspecified Hypothyroidism, unspecified type Elevated hemoglobin A1c Other abnormal blood chemistry Need for influenza vaccination Need for prophylactic vaccination and inoculation against influenza documented in this encounter [facility] note* Diagnosis Hypertensive kidney disease with stage 3b chronic kidney disease (HCC)- Primary documented in this encounter [facility] note* Diagnosis 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 CenterReason for referral (narrative)* Diagnostic Procedure Only (Routine) - Closed Specialty Diagnoses / Procedures Referred By Jalen monreal Referred To Contact XR IMAGING Diagnoses Osteoporosis without current pathological fracture, unspecified osteoporosis type Mid back pain Procedures XR THORACIC GENERAL 3V AP/LAT/SWIMMERS RADEX SPINE THORACIC 3 VIEWS Jesusita Drake APRN.TAPE MAKING MACHINE OPERATOR [address] [place] [address] Xr Imaging [facility]95 Referral ID Status Reason Start Date Expiration Date V isits Requested Visits Authorized [id number] Closed Auto-Generate d Referral 04/09/2023 05/08/2024 1 1 [facility] Reason for Referral Specialty Diagnoses / Procedures Referred By Jalen monreal Referred To Contact Gastroenterology Diagnoses Anemia, unspecified type Positive fecal occult blood test Procedures CONSULT TO GASTROENTEROLOGY OFFICE/OUTPATIENT NEW HIGH MDM 60-74 MINUTES Toshia Drake APRN.TAPE MAKING MACHINE OPERATOR [address] [place] [address] Referral ID Status Reason Start Date Expiration Date Visits Requested Visits Authorized [id number] Authorized PCP Requested Referral 01/17/2022 01/17/2023 1 1 Specialty Diagnoses / Procedures Referred By Contac t Referred To Contact General Surgery Diagnoses Anemia, unspecified type Positive fecal occult blood test Procedures CONSULT TO GENERAL SURGERY OFFICE/OUTPATIENT NEW HIGH MDM 60-74 MINUTES Older, DAVID Pope.TAPE MAKING MACHINE OPERATOR [address] [place] [address] Referral ID Status Reason Start Date Expiration Date Visits Requested Visits Authorized [id number] Authorized PCP Requested Referral 01/15/2022 01/15/2023 1 1 Specialty Diagnoses / Procedures Referred By Contac t Referred To Contact Endocrinology Diagnoses Age related osteoporosis, unspecified pathological fracture presence Procedures CONSULT TO ENDOCRINOLOGY OFFICE/OUTPATIENT NEW HIGH MDM 60-74 MINUTES Older, DAVID Mc.TAPE MAKING MACHINE OPERATOR [address] [place] [address] Referral ID Status Reason Start Date Expiration Date Visits Requested Visits Authorized [id number] Authorized PCP Requested Referral 02/02/2023 02/02/2024 1 [...] or prosecute any alcohol or drug abuse patient.[facility] CenterIn the event this information is protected by the Federal Confidentiality of Alcohol and Drug Abuse Patient Records regulations: The Federal rules restrict any use of the information to criminally investigate or prosecute any alcohol or drug abuse patient.[facility] CenterIn the event this information is protected by the Federal Confidentiality of Alcohol and Drug Abuse Patient Records regulations: The Federal rules restrict any use of the information to criminally investigate or prosecute any alcohol or drug abuse patient.[facility] CenterIn the event this information is protected by the Federal Confidentiality of Alcohol and Drug Abuse Patient Records regulations: The Federal rules restrict any use of the information to criminally investigate or prosecute any alcohol or drug abuse patient.[facility] CenterIn the event this information is protected by the Federal Confidentiality of Alcohol and Drug Abuse Patient Records regulations: The Federal rules restrict any use of the information to criminally investigate or prosecute any alcohol or drug abuse patient.[facility] CenterIn the event this information is protected by the Federal Confidentiality of Alcohol and Drug Abuse Patient Records regulations: The Federal rules restrict any use of the information to criminally investigate or prosecute any alcohol or drug abuse patient.[facility] CenterIn the event this information is protected by the Federal Confidentiality of Alcohol and Drug Abuse Patient Records regulations: The Federal rules restrict any use of the information to criminally investigate or prosecute any alcohol or drug abuse patient.[facility] CenterIn the event this information is protected by the Federal Confidentiality of Alcohol and Drug Abuse Patient Records regulations: The Federal rules restrict any use of the information to criminally investigate or prosecute any alcohol or drug abuse patient.[facility] CenterIn the event this information is protected by the Federal Confidentiality of Alcohol and Drug Abuse Patient Records regulations: The Federal rules restrict any use of the information to criminally investigate or prosecute any alcohol or drug abuse patient.[facility] CenterIn the event this information is protected by the Federal Confidentiality of Alcohol and Drug Abuse Patient Records regulations: The Federal rules restrict any use of the information to criminally investigate or prosecute any alcohol or drug abuse patient.[facility] CenterIn the event this information is protected by the Federal Confidentiality of Alcohol and Drug Abuse Patient Records regulations: The Federal rules restrict any use of the information to criminally investigate or prosecute any alcohol or drug abuse patient.[facility] CenterIn the event this information is protected by the Federal Confidentiality of Alcohol and Drug Abuse Patient Records regulations: The Federal rules restrict any use of the information to criminally investigate or prosecute any alcohol or drug abuse patient.[facility] CenterIn the event this information is protected by the Federal Confidentiality of Alcohol and Drug Abuse Patient Records regulations: The Federal rules restrict any use of the information to criminally investigate or prosecute any alcohol or drug abuse patient.[facility] CenterIn the event this information is protected by the Federal Confidentiality of Alcohol and Drug Abuse Patient Records regulations: The Federal rules restrict any use of the information to criminally investigate or prosecute any alcohol or drug abuse patient.[facility] CenterIn the event this information is protected by the Federal Confidentiality of Alcohol and Drug Abuse Patient Records regulations: The Federal rules restrict any use of the information to criminally investigate or prosecute any alcohol or drug abuse patient.[facility] CenterIn the event this information is protected by the Federal Confidentiality of Alcohol and Drug Abuse Patient Records regulations: The Federal rules restrict any use of the information to criminally investigate or prosecute any alcohol or drug abuse patient.[facility] CenterIn the event this information is protected by the Federal Confidentiality of Alcohol and Drug Abuse Patient Records regulations: The Federal rules restrict any use of the information to criminally investigate or prosecute any alcohol or drug abuse patient.[facility] CenterIn the event this information is protected by the Federal Confidentiality of Alcohol and Drug Abuse Patient Records regulations: The Federal rules restrict any use of the information to criminally investigate or prosecute any alcohol or drug abuse patient.[facility] CenterIn the event this information is protected by the Federal Confidentiality of Alcohol and Drug Abuse Patient Records regulations: The Federal rules restrict any use of the information to criminally investigate or prosecute any alcohol or drug abuse patient.[facility] CenterIn the event this information is protected by the Federal Confidentiality of Alcohol and Drug Abuse Patient Records regulations: The Federal rules restrict any use of the information to criminally investigate or prosecute any alcohol or drug abuse patient.[facility] CenterIn the event this information is protected by the Federal Confidentiality of Alcohol and Drug Abuse Patient Records regulations: The Federal rules restrict any use of the information to criminally investigate or prosecute any alcohol or drug abuse patient.[facility] CenterIn the event this information is protected by the Federal Confidentiality of Alcohol and Drug Abuse Patient Records regulations: The Federal rules restrict any use of the information to criminally investigate or prosecute any alcohol or drug abuse patient.[facility] CenterIn the event this information is protected by the Federal Confidentiality of Alcohol and Drug Abuse Patient Records regulations: The Federal rules restrict any use of the information to criminally investigate or prosecute any alcohol or drug abuse patient.[facility] CenterIn the event this information is protected by the Federal Confidentiality of Alcohol and Drug Abuse Patient Records regulations: The Federal rules restrict any use of the information to criminally investigate or prosecute any alcohol or drug abuse patient.[facility] CenterIn the event this information is protected by the Federal Confidentiality of Alcohol and Drug Abuse Patient Records regulations: The Federal rules restrict any use of the information to criminally investigate or prosecute any alcohol or drug abuse patient.[facility] CenterIn the event this information is protected by the Federal Confidentiality of Alcohol and Drug Abuse Patient Records regulations: The Federal rules restrict any use of the information to criminally investigate or prosecute any alcohol or drug abuse patient.[facility] CenterIn the event this information is protected by the Federal Confidentiality of Alcohol and Drug Abuse Patient Records regulations: The Federal rules restrict any use of the information to criminally investigate or prosecute any alcohol or drug abuse patient.[facility] CenterIn the event this information is protected by the Federal Confidentiality of Alcohol and Drug Abuse Patient Records regulations: The Federal rules restrict any use of the information to criminally investigate or prosecute any alcohol or drug abuse patient.[facility] CenterIn the event this information is protected by the Federal Confidentiality of Alcohol and Drug Abuse Patient Records regulations: The Federal rules restrict any use of the information to criminally investigate or prosecute any alcohol or drug abuse patient.[facility] CenterIn the event this information is protected by the Federal Confidentiality of Alcohol and Drug Abuse Patient Records regulations: The Federal rules restrict any use of the information to criminally investigate or prosecute any alcohol or drug abuse patient.[facility] CenterIn the event this information is protected by the Federal Confidentiality of Alcohol and Drug Abuse Patient Records regulations: The Federal rules restrict any use of the information to criminally investigate or prosecute any alcohol or drug abuse patient.[facility] CenterIn the event this information is protected by the Federal Confidentiality of Alcohol and Drug Abuse Patient Records regulations: The Federal rules restrict any use of the information to criminally investigate or prosecute any alcohol or drug abuse patient.[facility] CenterIn the event this information is protected by the Federal Confidentiality of Alcohol and Drug Abuse Patient Records regulations: The Federal rules restrict any use of the information to criminally investigate or prosecute any alcohol or drug abuse patient.[facility] CenterIn the event this information is protected by the Federal Confidentiality of Alcohol and Drug Abuse Patient Records regulations: The Federal rules restrict any use of the information to criminally investigate or prosecute any alcohol or drug abuse patient.[facility] CenterIn the event this information is protected by the Federal Confidentiality of Alcohol and Drug Abuse Patient Records regulations: The Federal rules restrict any use of the information to criminally investigate or prosecute any alcohol or drug abuse patient.[facility] CenterIn the event this information is protected by the Federal Confidentiality of Alcohol and Drug Abuse Patient Records regulations: The Federal rules restrict any use of the information to criminally investigate or prosecute any alcohol or drug abuse patient.[facility] CenterIn the event this information is protected by the Federal Confidentiality of Alcohol and Drug Abuse Patient Records regulations: The Federal rules restrict any use of the information to criminally investigate or prosecute any alcohol or drug abuse patient.[facility] CenterIn the event this information is protected by the Federal Confidentiality of Alcohol and Drug Abuse Patient Records regulations: The Federal rules restrict any use of the information to criminally investigate or prosecute any alcohol or drug abuse patient.[facility] CenterIn the event this information is protected by the Federal Confidentiality of Alcohol and Drug Abuse Patient Records regulations: The Federal rules restrict any use of the information to criminally investigate or prosecute any alcohol or drug abuse patient.[facility] CenterIn the event this information is protected by the Federal Confidentiality of Alcohol and Drug Abuse Patient Records regulations: The Federal rules restrict any use of the information to criminally investigate or prosecute any alcohol or drug abuse patient.[facility] CenterIn the event this information is protected by the Federal Confidentiality of Alcohol and Drug Abuse Patient Records regulations: The Federal rules restrict any use of the information to criminally investigate or prosecute any alcohol or drug abuse patient.[facility] CenterIn the event this information is protected by the Federal Confidentiality of Alcohol and Drug Abuse Patient Records regulations: The Federal rules restrict any use of the information to criminally investigate or prosecute any alcohol or drug abuse patient.[facility] CenterIn the event this information is protected by the Federal Confidentiality of Alcohol and Drug Abuse Patient Records regulations: The Federal rules restrict any use of the information to criminally investigate or prosecute any alcohol or drug abuse patient.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 Reason [...] Care Teams (unrecognized sec tion and content) [employer] Solution Architect Relationship Specialty Start Date End Date Татьяна Barnard MD [address] [facility] [place] [address] PCP - General Internal Medicine 05/06/16 Sfdc Solution Architect Relationship Specialty Start Date End Date Татьяна Barnard MD [address] [facility] [place] [address] PCP - General Internal Medicine 05/06/16 Sfdc Solution Architect Relationship Specialty Start Date End Date Татьяна Barnard MD [address] [facility] [place] [address] PCP - General Internal Medicine 05/06/16 Sfdc Solution Architect Relationship Specialty Start Date End Date Татьяна Barnard MD [address] [facility] [place] [address] PCP - General Internal Medicine 05/06/16 Sfdc Solution Architect Relationship Specialty Start Date End Date Татьяна Barnard MD [address] [facility] [place] [address] PCP - General Internal Medicine 05/06/16 Sfdc Solution Architect Relationship Specialty Start Date End Date Татьяна Barnard MD [address] [facility] [place] [address] PCP - General Internal Medicine 05/06/16 Sfdc Solution Architect Relationship Specialty Start Date End Date Татьяна Barnard MD [address] [place] [address] PCP - General Internal Medicine 05/06/16 Sfdc Solution Architect Relationship Specialty Start Date End Date Татьяна Barnard MD [address] [place] [address] PCP - General Internal Medicine 05/06/16 Sfdc Solution Architect Relationship Specialty Start Date End Date Татьяна Barnard MD [address] [place] [address] PCP - General Internal Medicine 05/06/16 Sfdc Solution Architect Relationship Specialty Start Date End Date Татьяна Barnard MD [address] [place] [address] PCP - General Internal Medicine 05/06/16 Sfdc Solution Architect Relationship Specialty Start Date End Date Татьяна Barnard MD [address] [place] [address] PCP - General Internal Medicine 05/06/16 Sfdc Solution Architect Relationship Specialty Start Date End Date Татьяна Barnard MD [address] [place] [address] PCP - General Internal Medicine 05/06/16 Sfdc Solution Architect Relationship Specialty Start Date End Date Татьяна Barnard MD [address] [place] [address] PCP - General Internal Medicine 05/06/16 Sfdc Solution Architect Relationship Specialty Start Date End Date Татьяна Barnard MD [address] [place] [address] PCP - General Internal Medicine 05/06/16 Sfdc Solution Architect Relationship Specialty Start Date End Date Татьяна Barnard MD [address] [place] [address] PCP - General Internal Medicine 05/06/16 Sfdc Solution Architect Relationship Specialty Start Date End Date Татьяна Barnard MD [address] [facility] [place] [address] PCP - General Internal Medicine 05/06/16 Sfdc Solution Architect Relationship Specialty Start Date End Date Татьяна Barnard MD [address] [place] [address] PCP - General Internal Medicine 05/06/16 Sfdc Solution Architect Relationship Specialty Start Date End Date Татьяна Barnard MD [address] [place] [address] PCP - General Internal Medicine 05/06/16 Sfdc Solution Architect Relationship Specialty Start Date End Date Татьяна Barnard MD [address] [place] [address] PCP - General Internal Medicine 05/06/16 Sfdc Solution Architect Relationship Specialty Start Date End Date Татьяна Barnard MD [address] [place] [address] PCP - General Internal Medicine 05/06/16 Fredis Marie [address] [place] [address] Specialty Efficiency Clerk Cardiology 01/27/23 Yuriy Collins DO [address] [place] [address] Specialty Efficiency Clerk Gastroenterology 01/27/23 Sfdc Solution Architect Relationship Specialty Start Date End Date Татьяна Barnard MD [address] [place] [address] PCP - General Internal Medicine 05/06/16 Cynthia Fredis S [address] [place] [address] Specialty Efficiency Clerk Cardiology 01/27/23 Yuriy Collins DO [address] [place] [address] Specialty Efficiency Clerk Gastroenterology 01/27/23 Sfdc Solution Architect Relationship Specialty Start Date End Date Татьяна Barnard MD [address] [place] [address] PCP - General Internal Medicine 05/06/16 Nirmal Marieril S [address] [place] [address] Specialty Efficiency Clerk Cardiology 01/27/23 Yuriy Collins DO [address] [place] [address] Specialty Efficiency Clerk Gastroenterology 01/27/23 Sfdc Solution Architect Relationship Specialty Start Date End Date Татьяна Barnard MD [address] [place] [address] PCP - General Internal Medicine 05/06/16 Nirmal Marieril S [address] [place] [address] Specialty Efficiency Clerk Cardiology 01/27/23 Yuriy Collins DO [address] [place] [address] Specialty Efficiency Clerk Gastroenterology 01/27/23 Sfdc Solution Architect Relationship Specialty Start Date End Date Татьяна Barnard MD [address] [place] [address] PCP - General Internal Medicine 05/06/16 Fredis Marie MD [address] [place] [address] Specialty Efficiency Clerk Cardiology 01/27/23 Yuriy Collins DO [address] [place] [address] Specialty Efficiency Clerk Gastroenterology 01/27/23 Sfdc Solution Architect Relationship Specialty Start Date End Date Татьяна Barnard MD [address] [facility] [place] [address] PCP - General Internal Medicine 05/06/16 Frdeis Marie MD [address] [place] [address] Specialty Efficiency Clerk Cardiology 01/27/23 Yuriy Collins DO [address] [place] [address] Specialty Efficiency Clerk Gastroenterology 01/27/23 Sfdc Solution Architect Relationship Specialty Start Date End Date Татьяна Barnard MD [address] [facility] [place] [address] PCP - General Internal Medicine 05/06/16 Fredis Marie MD [address] [place] [address] Specialty Efficiency Clerk Cardiology 01/27/23 Yuriy Collins DO [address] [place] [address] Specialty Efficiency Clerk Gastroenterology 01/27/23 Sfdc Solution Architect Relationship Specialty Start Date End Date Татьяна Barnard MD [address] [place] [address] PCP - General Internal Medicine 05/06/16 Fredis Marie MD [address] [place] [address] Specialty Efficiency Clerk Cardiology 01/27/23 Yuriy Collins DO [address] [place] [address] Specialty Efficiency Clerk Gastroenterology 01/27/23 Sfdc Solution Architect Relationship Specialty Start Date End Date Татьяна Barnard MD [address] [place] [address] PCP - General Internal Medicine 05/06/16 Sfdc Solution Architect Relationship Specialty Start Date End Date Татьяна Barnard MD [address] [place] [address] PCP - General Internal Medicine 05/06/16 Fredis Marie MD [address] [place] [address] Specialty Efficiency Clerk Cardiology 01/27/23 Yuriy Collins DO [address] [place] [address] Specialty Efficiency Clerk Gastroenterology 01/27/23 Sfdc Solution Architect Relationship Specialty Start Date End Date Татьяна Barnard MD [address] [place] [address] PCP - General Internal Medicine 05/06/16 Fredis Marie MD [address] [place], [place] [id number] Specialty Efficiency Clerk Cardiology 01/27/23 Yuriy Collins DO [address] [place], [place] [address] Specialty Efficiency Clerk Gastroenterology 01/27/23 Sfdc Solution Architect Relationship Specialty Start Date End Date Татьяна Barnard MD [address] [place], [place] [address] PCP - General Internal Medicine 05/06/16 Fredis Marie MD [address] [place], [place] [address] Specialty Efficiency Clerk Cardiology 01/27/23 Yuriy Collins DO [address] [place], [place] [id number] Specialty Efficiency Clerk Gastroenterology 01/27/23 INFORMATION SOURCE (unrecogn ized section and content) DATE CREATED AUTHOR AUTHOR'S ORGANIZ ATION 07/13/2023 [facility] FOR RECORDS PERTAINING TO PATIENTS WHO [...] BE BASED ON THE PRIMARY CLINICAL RECORDS. [facility]. provides no warranty or guarantee of the accuracy or completeness of information in this document.
--- NOTE | 2023-07-13 16:52 | ECHOD_ITS ---
Reason For Study: Syncope Procedure This was a 2D Doppler, Color Flow transthoracic echocardiogram. Exam performed portable in patient room. Left Ventricle Normal left ventricle. The estimated ejection fraction is 60-65 %. Right Ventricle Normal right ventricle. Normal systolic function. Atria Normal left atrium. Normal right atrium. Mitral Valve The mitral valve is structurally normal. No prolapse or stenosis seen. Mild (1+) mitral valve insufficiency. Tricuspid Valve Normal tricuspid valve. Mild tricuspid valve insufficiency. Aortic Valve Trisinus/trileaflet aortic valve. Pulmonic Valve The pulmonic valve is not well visualized. Great Vessels Normal aortic root. Pericardium/Pleural No pericardial effusion. MMode/2D Measurements & Calculations LVIDd: 3.9 cm IVSd: 1.0 cm Ao root diam: 3.1 cm LVIDs: 2.5 cm LVPWd: 0.90 cm LA dimension: 3.5 cm RVDd: 3.5 cm FS: 35.4 % LAV(MOD-bp): 45.2 ml LVAd ap4: 19.2 cm2 SV(MOD-sp4): 32.7 ml LAV(MOD-bp) Indexed: 27.7 ml/m2 LVLd ap4: 6.6 cm LAV(MOD-sp2): 48.9 ml EDV(MOD-sp4): 47.3 ml LAV(MOD-sp4): 41.0 ml EDV(sp4-el): 47.4 ml LVAs ap4: 9.5 cm2 LVLs ap4: 5.7 cm ESV(MOD-sp4): 14.6 ml ESV(sp4-el): 13.3 ml EF(MOD-sp4): 69.1 % EF(sp4-el): 71.8 % SV(sp4-el): 34.0 ml LA A4 area: 17.0 cm2 RA A4 area: 13.0 cm2 Time Measurements MV dec time: 0.24 sec Doppler Measurements & Calculations MV E max antonio: 98.6 cm/sec Lat Peak E' Antonio: 6.5 cm/sec Med Peak E' Antonio: 7.3 cm/sec MV A max antonio: 70.2 cm/sec E/E' lat: 15.2 E/E' med: 13.6 MV E/A: 1.4 MV V2 max: 125.9 cm/sec MV P1/2t max antonoi: 126.8 cm/sec Ao V2 max: 116.1 cm/sec MV max P.3 mmHg MV P1/2t: 81.9 msec Ao max P.4 mmHg MV V2 mean: 64.5 cm/sec Ao V2 mean: 77.7 cm/sec MV mean P.0 mmHg MV dec slope: 453.4 cm/sec2 Ao mean P.8 mmHg MV V2 VTI: 40.3 cm MVA(P1/2t): 2.7 cm2 Ao V2 VTI: 25.4 cm AV (velocity ratio): 0.96 LV V1 max: 108.2 cm/sec PA V2 max: 70.9 cm/sec TR max antonio: 370.8 cm/sec LV V1 max P.7 mmHg TR max P.0 mmHg LV V1 mean P.5 mmHg LV V1 mean: 73.5 cm/sec LV V1 VTI: 24.4 cm ECHO/Echo Complete Interpretation Summary The estimated ejection fraction is 60-65 %. Normal LV systolic function Mild TR Mild MR No pericardial effusion No significant change from prior echocardiogram. Ordering Physician: Akosua Sewell Performed By: Jose Sánchez RCS
--- NOTE | 2023-07-13 16:52 | NM_ITS ---
CLINICAL: 87-year-old female with history of hypoxemia. VENTILATION-PERFUSION LUNG SCINTIGRAPHY COMPARISON: Film chest radiograph report 07/13/2023 FINDINGS: The patient was administered 51.0 mCi 99m Tc DTPA aerosol. The aerosol ventilation study demonstrates heterogeneous ventilation in the bilateral lung carrion without corresponding radiographic changes visualized on review of plain film chest x-ray dated 07/13/2023. Central clumping of the aerosol is identified in the bilateral hemithorax. Following the intravenous administration of 5.7 mCi of 99m Tc MAA, the pulmonary perfusion study reveals matching non-uniform perfusion in the right and left lungs correlating with the previously defined ventilation pattern. No moderate subsegmental or large segmental ventilation-perfusion mismatches are noted. There are regions of retained normal perfusion visualized. NM/Lung Scan Vent/Perf IMPRESSION: 1. VERY LOW PROBABILITY FOR PULMONARY EMBOLUS (<10%) 99m Tc DTPA aerosol ventilation / 99m Tc MAA pulmonary perfusion imaging examination, according to PIOPED II interpretive criteria with regard given to the presence of > 2 ventilation-perfusion matches without corresponding radiographic changes. (Sotsman et al, Radiology 246: 941, 2008 Sotsman et al, J Nucl Med 49: 1741, 2008). 2. Central clumping of the aerosol may be secondary to obstructive airway mechanics and or clinical tachypnea. Electronically Signed: Dick Hannon DO at 13:53 EST ,
[2023-07-13] MEDS: Rivaroxaban 15 MG Tablet PO (18:40)
[2023-07-13] MEDS: hydrALAZINE 10 MG Tablet PO (18:40)
[2023-07-13] MEDS: Carvedilol 12.5 MG Tablet PO (18:40)
[2023-07-13] MEDS: Acetaminophen 500 MG Tablet 1000 MG PO (18:40)
[2023-07-13] MEDS: Lactated Ringers 1,000 ML 70 ML IV (18:44)
[2023-07-13 18:45] LABS: Troponin-I HS 136 pg/mL (3.0-54.0)
[2023-07-13 19:47] LABS: Hemoglobin A1c 5.1 % (3.8-5.6)
[2023-07-13] MEDS: Latanoprost 0.005% 1 Bottle 1 DRP EACH EYE (21:54)
[2023-07-13] MEDS: Furosemide 40 MG/4 ML Vial IV (21:54)
[2023-07-13] MEDS: Losartan Potassium 50 MG Tablet PO (21:54)
[2023-07-13] MEDS: Timolol 0.5% 5ML OPTH.BTL 1 DRP RIGHT EYE (21:56)
[2023-07-13] MEDS: BRIMONIDINE 0.15% 5 ML Bottle 1 DRP OPHTHALMIC (21:58)
[2023-07-14] VITALS (10 sets, daily range): BP systolic 106–154; BP diastolic 41–57; PULSE 60–70; RESP 14–16; TEMP 36.4–36.9; O2SAT 89–100
[2023-07-14] MEDS: hydrALAZINE 10 MG Tablet PO ×4 (00:27→17:44)
[2023-07-14] MEDS: Acetaminophen 500 MG Tablet 1000 MG PO ×3 (05:53→20:39)
[2023-07-14] MEDS: Levothyroxine 25 MCG TABLET PO (05:56)
[2023-07-14 06:05] LABS: Absolute Lymphocyte Count 0.95 X10^3/uL (0.83-4.51); Basophil# 0.04 X10^3/uL; Basophil% 0.4 % (0-1); Eosinophils% 2.8 % (0-5); Hematocrit 30.9 % (37-47); Hemoglobin 9.9 g/dL (12.0-15.0); Lymphocyte # 0.95 X10^3/ul (0.83-4.51); Lymphocyte % 8.7 % (19-41); Mean Corpuscular Hgb 30.7 pg (27.0-32.0); Mean Platelet Vol. 9.8 fl (6.2-12.0); Monocyte# 0.51 X10^3/uL; Monocyte% 4.7 % (0-10); NRBC Flagged by Analyzer 0 % (0-5); Neutrophil # 9.04 X10^3/uL (2.7-7.7); Neutrophil % 83.1 % (47-70); Platelet Count 163 K/mm3 (150-450); RBC Distribution Width CV 12.6 % (11.6-14.6); RBC Distribution Width SD 44.1 fl (35.1-43.9); Red Blood Count 3.22 M/mm3 (4.2-5.4); White Blood Count 10.9 K/mm3 (4.4-11.0)
[2023-07-14 06:39] LABS: ALB/GLOB Ratio 0.9 RATIO (0.9-2.4); AST(SGOT) 20 U/L (15-37); Alanine Aminotransfer ALT/SGPT 23 U/L (13-56); Alkaline Phosphatase 49 U/L (45-117); Anion Gap 8 (5-15); BUN 36 mg/dL (7-18); BUN/Creat Ratio 17.7 RATIO (10-20); Calcium,Total 8.7 mg/dL (8.5-10.1); Chloride 111 mmol/L (98-107); Creatinine, Serum 2.03 mg/dL (0.55-1.02); EST Glomerular Filtration Rate 25 mL/min (>60); Est Glom Filt Rate - Afr Amer 30 mL/min (>60); Estimated Creatinine Clearance 17.34 ml/min; Globulin 3.4 g/dL (2.2-4.2); Glucose 113 mg/dL (74-106); Magnesium 1.7 mg/dL (1.6-2.6); Potassium 4.1 mmol/L (3.5-5.1); Protein, Total 6.4 g/dL (6.4-8.2); Sodium Level 142 mmol/L (136-145); Thyroid Stim Hormone (TSH) 0.65 uIU/mL (0.358-3.74)
[2023-07-14] MEDS: Lactated Ringers 1,000 ML 70 ML IV (09:34)
[2023-07-14] MEDS: Carvedilol 12.5 MG Tablet PO ×2 (09:35→17:43)
[2023-07-14] MEDS: Losartan Potassium 50 MG Tablet PO ×2 (09:35→20:39)
[2023-07-14] MEDS: BRIMONIDINE 0.15% 5 ML Bottle 1 DRP OPHTHALMIC ×2 (09:35→20:40)
[2023-07-14] MEDS: Potassium Chloride Oral Tablet 10 MEQ PO (09:35)
[2023-07-14] MEDS: Furosemide 20 MG Tablet PO (09:36)
[2023-07-14] MEDS: Cyanocobalamin 500 MCG Tablet 1000 MCG PO (09:36)
[2023-07-14] MEDS: Pantoprazole Sodium 40 MG Tablet PO (09:36)
[2023-07-14] MEDS: Timolol 0.5% 5ML OPTH.BTL 1 DRP RIGHT EYE ×2 (09:36→20:41)
[2023-07-14] MEDS: Cholecalciferol (VIT D3) 25 MCG TABLET (1,000 UNITS) 50 MCG PO (09:37)
--- NOTE | 2023-07-14 11:28 | PCM.PN.HOSP ---
Subjective Subjective A little better today, still remains a little hypoxic. She states that she is inconsistent with taking her anticoagulation so VQ scan is pending Objective Data Objective Data Vital Signs: Vital Signs Temp Pulse Resp BP Pulse Ox O2 Del Method O2 Flow Rate 98.0 F 62 16 106/41 L 99 Nasal Cannula 2 07/14/23 09:28 07/14/23 09:28 07/14/23 09:28 07/14/23 09:28 07/14/23 09:28 07/14/23 09:28 07/14/23 09:28 Oxygen Flow Rate (L/min) 2 Oxygen Delivery Method Nasal Cannula Weight: 138 lb 10.732 oz Body Mass Index (BMI) 25.3 Intake & Output: Intake and Output for Last 24 Hours 07/13/23 07/14/23 07/15/23 03:59 03:59 03:59 Intake Total 440 / 440 1000 / 1000 Balance 440 / 440 1000 / 1000 Lab / Micro Data 07/14/23 05:51 07/14/23 05:51 Labs: Laboratory Results - last 24 hr 07/13/23 11:35: WBC 5.4, RBC 3.21 L, Hgb 10.0 L, Hct 30.9 L, MCV 96.3, MCH 31.2, MCHC 32.4, RDW Std Deviation 43.3, RDW Coeff of Broderick 12.4, Plt Count 179, MPV 9.6, Immature Gran % (Auto) 0.400, Neut % (Auto) 62.0, Lymph % (Auto) 28.3, [place] % (Auto) 6.3, Eos % (Auto) 2.6, Baso % (Auto) 0.4, Absolute Neuts (auto) 3.3, Absolute Lymphs (auto) 1.52, Nucleated RBC % 0, Sodium 142, Potassium 3.8, Chloride 112 H, Carbon Dioxide 24.0, Anion Gap 6, BUN 29 H, Creatinine 1.70 H, Est GFR (MDRD) Af Amer 37 L, Est GFR (MDRD) Non-Af 30 L, BUN/Creatinine Ratio 17.1, Glucose 165 H, Calcium 8.8, Troponin I High Sens 116 H, B-Natriuretic Peptide 217.9 H 07/13/23 13:53: Troponin I High Sens 119 H, Urine Color Yellow, Urine Clarity Sl. Cloudy, Urine pH 5.0, Ur Specific [place] 1.020, Urine Protein 30 H, Urine Glucose (UA) Normal, Urine Ketones Negative, Urine Occult Blood 10 H, Urine Nitrite Positive H, Urine Bilirubin Negative, Urine Urobilinogen Normal, Ur Leukocyte Esterase 100 H, Urine RBC 0-5 SEEN, Urine WBC 25-50 SEEN, Ur Squamous Epith Cells 0-5 SEEN, Urine Bacteria 3+, Urine Mucus 0 SEEN 07/13/23 17:15: Hemoglobin A1c 5.1 07/13/23 17:35: Troponin I High Sens 136 H* 07/14/23 05:51: WBC 10.9, RBC 3.22 L, Hgb 9.9 L, Hct 30.9 L, MCV 96.0, MCH 30.7, MCHC 32.0, RDW Std Deviation 44.1 H, RDW Coeff of Broderick 12.6, Plt Count 163, MPV 9.8, Immature Gran % (Auto) 0.300, Neut % (Auto) 83.1 H, Lymph % (Auto) 8.7 L, [place] % (Auto) 4.7, Eos % (Auto) 2.8, Baso % (Auto) 0.4, Absolute Neuts (auto) 9.0 H, Absolute Lymphs (auto) 0.95, Nucleated RBC % 0, Sodium 142, Potassium 4.1, Chloride 111 H, Carbon Dioxide 23.0, Anion Gap 8, BUN 36 H, Creatinine 2.03 H, Estim Creat Clear Calc 17.34, Est GFR (MDRD) Af Amer 30 L, Est GFR (MDRD) Non-Af 25 L, BUN/Creatinine Ratio 17.7, Glucose 113 H, Calcium 8.7, Phosphorus 4.0, Magnesium 1.7, Total Bilirubin 0.80, AST 20, ALT 23, Alkaline Phosphatase 49, Total Protein 6.4, Albumin 3.0 L, Globulin 3.4, Albumin/Globulin Ratio 0.9, TSH 0.65 Micro: Microbiology 07/13/23 13:53 Urine, Clean Catch Legionella Antigen - Final 07/13/23 13:53 Urine, Clean Catch Streptococcus pneumoniae Antigen (M - Final 07/13/23 17:15 Mucosa - Nasopharyngeal Respiratory Panel (PCR) - Final 07/13/23 11:25 Mucosa - Nose SARS-CoV-2, Influenza & RSV (PCR) - Final Radiography Diagnostic Testing: Radiology Impression Brain CT 07/13/23 11:17 IMPRESSION: Chronic involutional changes of the brain. Electronically Signed: Hans Puga MD at 12:24 EST , Chest X-Ray 07/13/23 12:00 IMPRESSION: Mild elevation of the left hemidiaphragm. No acute infiltrate is seen. Electronically Signed: Hans Puga MD at 12:35 EST , Chest CT 07/13/23 13:31 IMPRESSION: Mild degree of pericardial thickening. Mild increased markings at the lung apices suggestive of either atelectasis and/or scarring. Electronically Signed: Hans Puga MD at 14:51 EST , Foot X-Ray 07/13/23 15:38 IMPRESSION: Osteopenia with osteoarthritis as described. Otherwise no acute fracture or subluxation. Electronically Signed: Loretta Fountain MD at 16:29 EST Reading Location ID and State: [place] / [employer] , Service support , Lumbar Spine X-Ray 07/13/23 15:38 IMPRESSION: Diffuse osteopenia with multilevel degenerative disease as described. No acute fracture or spondylolisthesis seen. Electronically Signed: Loretta Fountain MD at 16:29 EST Reading Location ID and State: [id number] / [employer] , Service support , Foot X-Ray 07/13/23 15:49 IMPRESSION: Diffuse osteopenia with osteoarthritis as described. No acute fracture or subluxation. Electronically Signed: Loretta Fountain MD at 16:28 EST , Physical Exam Narrative General: Alert, Oriented x3, Cooperative, No apparent distress HEENT: Atraumatic, PERRLA, EOMI, Normocephalic Oral: Moist Mucosa Neck: Supple, No JVD Lungs: Diminished, Normal air movement, No rhonchi, No wheeze, No rales Cardiovascular: Regular rate, Regular Rhythm, Normal S1, Normal S2, No murmurs Abdomen: Soft, Non Tender, Non-Distended, No Hepato-splenomegaly Extremities: No edema, Capillary Refill Less than 3 Seconds Skin: No rashes, No breakdown Musculoskeletal: No Tenderness to Palpation of Joints or Extremities Neurological: Cranial nerves II-XII grossly intact, Motor Exam 5/5 strength throughout, Sensory exam intact to light touch and pain Psych/Mental Status: Normal Affect, Appropriate Assessment & Plan Assessment/Plan (1) Hypoxia: (2) Syncope: (3) Elevated troponin: (4) Hyperglycemia: (5) Fall: (6) Back pain: (7) Foot pain, bilateral: PLAN: Plan 1. Syncope unclear etiology possibly due to UTI/back pain and bilateral foot pain secondary to multiple ? TSH is normal ? Will start her on antibiotics as other symptomatology to indicate infection as well as a doubling of her white count today ? Urine cultures pending ? Echo is pending, troponins are slightly elevated but she is denying any chest pain. Of note creatinine is slightly elevated compared to baseline which can elevate her troponin ? COVID and flu are unremarkable 2. Hypoxia ? Etiology is unclear VQ scan is pending, CT and chest x-ray were unremarkable ? Her BNP was little bit elevated on admission so she was given a dose of IV Lasix ? As noted above respiratory panels are unremarkable 3. A-fib/HLD/HTN/chronic diastolic CHF ? Continue with her home Xarelto though she says that she is inconsistent with taking it hence a VQ scan to rule out PE ? Continue with her home blood pressure medications ? We will monitor make adjustments as necessary 4. GERD with history of GI bleed ? Proceeding with the Watchman procedure ? Continue with PPI ? Stable 5. CKD 3B ? Creatinine is little bit more elevated than baseline ? Will continue with her home medications and monitor make adjustments as indicated 6. Hypothyroidism ? TSH is normal ? 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 Next of kin: [place] law dictates a PRIORITY LIST for identifying legal decision-maker/legal next of kin in the following order (LNOK): 1st: The patient?s legal guardian, if any 2nd: The patient's spouse (if status is questionable, consult Risk Management) 3rd: The patient?s adult child(koby) (majority, if multiple children) 4th: The patient?s parents 5th: The patient?s adult siblings (majority, if multiple children siblings) Charges/Coding Visit Charges Inpatient E&M: 44641 Subs Hosp L2
--- NOTE | 2023-07-14 12:15 | CASEMGMT ---
JUMA FERNANDES Face to Face with patient for initial transition planning/care coordination assessment. RN CM introduced self and role at [facility]. Patient lying in bed, alert and oriented, brother at bedside. Patient willing to participate in assessment and is able to answer all questions appropriately. Care providers, pharmacy, and demographics verified. Patient wishes to discharge home, will monitor progress with therapy for needs at discharge. Patient states she has no further needs or concerns at this time. CM to follow for discharge planning needs that may arise. PCP: Evon Specialists: Donato, ms sql server developer; Friend, GI; DELMAR, cotton stripper Preferred Pharmacy: [facility] Insurance: [email or web address] Prescription Benefit: yes Living Will/HPOA: yes, daughter Jessa Ragland LNOK: daughter Living Arrangements: Patient lives alone in a single story home with one step to enter the home. Patient states she is independent at home. Transportation: self, daughter DME/HHC: Patient has grab bars, cane, walker at home. No previous HHC Or SNF. Disposition Plan: TBD, anticipate HHC vs SNF pending progress with therapy. Inna SCHULTE, RN, CM
[2023-07-14] MEDS: Ciprofloxacin 400 MG/200 ML BAG 200 MG IV (12:29)
[2023-07-14] MEDS: 0.9% Saline Lock 10 ML Syringe IV (12:29)
[2023-07-14] MEDS: Rivaroxaban 15 MG Tablet PO (17:43)
[2023-07-14] MEDS: Latanoprost 0.005% 1 Bottle 1 DRP EACH EYE (20:41)
[2023-07-15] VITALS (16 sets, daily range): BP systolic 107–170; BP diastolic 42–69; PULSE 58–90; RESP 16–18; TEMP 36.3–36.6; O2SAT 86–98
[2023-07-15] MEDS: hydrALAZINE 10 MG Tablet PO ×3 (00:31→18:10)
[2023-07-15] MEDS: Lactated Ringers 1,000 ML 70 ML IV ×2 (02:53→16:23)
[2023-07-15] MEDS: Levothyroxine 25 MCG TABLET PO (05:29)
[2023-07-15] MEDS: Acetaminophen 500 MG Tablet 1000 MG PO ×3 (05:29→21:57)
[2023-07-15 05:56] LABS: Absolute Lymphocyte Count 0.89 X10^3/uL (0.83-4.51); Absolute Neutrophil Count 5.8 X10^3/uL (2.0-7.7); Basophil# 0.04 X10^3/uL; Basophil% 0.5 % (0-1); Eosinophils% 8.7 % (0-5); Hematocrit 30.3 % (37-47); Hemoglobin 9.5 g/dL (12.0-15.0); Lymphocyte # 0.89 X10^3/ul (0.83-4.51); Lymphocyte % 11.1 % (19-41); Mean Corp Hgb Conc 31.4 g/dL (32-36); Mean Corpuscular Hgb 31.8 pg (27.0-32.0); Mean Corpuscular Volume 101.3 fL (81-99); Mean Platelet Vol. 9.9 fl (6.2-12.0); Monocyte# 0.56 X10^3/uL; NRBC Flagged by Analyzer 0 % (0-5); Neutrophil # 5.81 X10^3/uL (2.7-7.7); Neutrophil % 72.5 % (47-70); Platelet Count 133 K/mm3 (150-450); RBC Distribution Width CV 12.7 % (11.6-14.6); RBC Distribution Width SD 47.5 fl (35.1-43.9); Red Blood Count 2.99 M/mm3 (4.2-5.4)
[2023-07-15 06:31] LABS: Anion Gap 6 (5-15); BUN 38 mg/dL (7-18); BUN/Creat Ratio 17.8 RATIO (10-20); Calcium,Total 8.5 mg/dL (8.5-10.1); Chloride 111 mmol/L (98-107); Creatinine, Serum 2.14 mg/dL (0.55-1.02); EST Glomerular Filtration Rate 23 mL/min (>60); Est Glom Filt Rate - Afr Amer 28 mL/min (>60); Estimated Creatinine Clearance 16.45 ml/min; Glucose 112 mg/dL (74-106); Potassium 3.8 mmol/L (3.5-5.1); Sodium Level 141 mmol/L (136-145)
[2023-07-15] MEDS: Cyanocobalamin 500 MCG Tablet 1000 MCG PO (11:09)
[2023-07-15] MEDS: Losartan Potassium 50 MG Tablet PO ×2 (11:09→21:56)
[2023-07-15] MEDS: Cholecalciferol (VIT D3) 25 MCG TABLET (1,000 UNITS) 50 MCG PO (11:09)
[2023-07-15] MEDS: Potassium Chloride Oral Tablet 10 MEQ PO (11:09)
[2023-07-15] MEDS: Carvedilol 12.5 MG Tablet PO ×2 (11:10→16:21)
[2023-07-15] MEDS: Atorvastatin Calcium 20 MG Tablet PO (11:10)
[2023-07-15] MEDS: Pantoprazole Sodium 40 MG Tablet PO (11:10)
[2023-07-15] MEDS: Timolol 0.5% 5ML OPTH.BTL 1 DRP RIGHT EYE ×2 (11:11→21:56)
[2023-07-15] MEDS: BRIMONIDINE 0.15% 5 ML Bottle 1 DRP OPHTHALMIC ×2 (11:12→21:56)
[2023-07-15] MEDS: Ciprofloxacin 400 MG/200 ML BAG 200 MG IV (11:14)
--- NOTE | 2023-07-15 12:07 | PCM.PN.HOSP ---
Subjective Subjective Feels little better today, no issues overnight Objective Data Objective Data Vital Signs: Vital Signs Temp Pulse Resp BP Pulse Ox O2 Del Method O2 Flow Rate 97.8 F 64 16 170/50 H 96 Nasal Cannula 1 07/15/23 08:40 07/15/23 08:40 07/15/23 08:40 07/15/23 11:10 07/15/23 08:40 07/15/23 08:43 07/15/23 08:40 Oxygen Flow Rate (L/min) 1 Oxygen Delivery Method Nasal Cannula Weight: 138 lb 10.732 oz Body Mass Index (BMI) 25.3 Intake & Output: Intake and Output for Last 24 Hours 07/14/23 07/15/23 07/16/23 03:59 03:59 03:59 Intake Total 440 / 440 2364.5 / 2364.5 100 / 100 Output Total 300 / 300 Balance 440 / 440 2064.5 / 2064.5 100 / 100 Lab / Micro Data 07/15/23 05:36 07/15/23 05:36 Labs: Laboratory Results - last 24 hr 07/15/23 05:36: WBC 8.0, RBC 2.99 L, Hgb 9.5 L, Hct 30.3 L, MCV 101.3 H D, MCH 31.8, MCHC 31.4 L, RDW Std Deviation 47.5 H, RDW Coeff of Broderick 12.7, Plt Count 133 L, MPV 9.9, Immature Gran % (Auto) 0.200, Neut % (Auto) 72.5 H, Lymph % (Auto) 11.1 L, [place] % (Auto) 7.0, Eos % (Auto) 8.7 H, Baso % (Auto) 0.5, Absolute Neuts (auto) 5.8, Absolute Lymphs (auto) 0.89, Nucleated RBC % 0, Sodium 141, Potassium 3.8, Chloride 111 H, Carbon Dioxide 24.0, Anion Gap 6, BUN 38 H, Creatinine 2.14 H, Estim Creat Clear Calc 16.45, Est GFR (MDRD) Af Amer 28 L, Est GFR (MDRD) Non-Af 23 L, BUN/Creatinine Ratio 17.8, Glucose 112 H, Calcium 8.5 Micro: Microbiology 07/13/23 13:53 Urine, Random Urine Culture - Preliminary Presumptive E. coli 07/13/23 13:53 Urine, Clean Catch Legionella Antigen - Final 07/13/23 13:53 Urine, Clean Catch Streptococcus pneumoniae Antigen (M - Final 07/13/23 17:15 Mucosa - Nasopharyngeal Respiratory Panel (PCR) - Final 07/13/23 11:25 Mucosa - Nose SARS-CoV-2, Influenza & RSV (PCR) - Final Radiography Diagnostic Testing: Radiology Impression Echocardiogram 07/13/23 16:52 Interpretation Summary The estimated ejection fraction is 60-65 %. Normal LV systolic function Mild TR Mild MR No pericardial effusion No significant change from prior echocardiogram. Ordering Physician: Akosua Sewell Performed By: Jose Sánchez RCS Lung Scan-VQ NM 07/13/23 16:52 IMPRESSION: 1. VERY LOW PROBABILITY FOR PULMONARY EMBOLUS (<10%) 99m Tc DTPA aerosol ventilation / 99m Tc MAA pulmonary perfusion imaging examination, according to PIOPED II interpretive criteria with regard given to the presence of > 2 ventilation-perfusion matches without corresponding radiographic changes. (Sotsman et al, Radiology 246: 941, 2008 Sotssivan et al, J Nucl Med 49: 1741, 2008). 2. Central clumping of the aerosol may be secondary to obstructive airway mechanics and or clinical tachypnea. Electronically Signed: Dick Hannon DO at 13:53 EST , Physical Exam Narrative General: Alert, Oriented x3, Cooperative, No apparent distress HEENT: Atraumatic, PERRLA, EOMI, Normocephalic Oral: Moist Mucosa Neck: Supple, No JVD Lungs: Diminished, Normal air movement, No rhonchi, No wheeze, No rales Cardiovascular: Regular rate, Regular Rhythm, Normal S1, Normal S2, No murmurs Abdomen: Soft, Non Tender, Non-Distended, No Hepato-splenomegaly Extremities: No edema, Capillary Refill Less than 3 Seconds Skin: No rashes, No breakdown Musculoskeletal: No Tenderness to Palpation of Joints or Extremities Neurological: Cranial nerves II-XII grossly intact, Motor Exam 5/5 strength throughout, Sensory exam intact to light touch and pain Psych/Mental Status: Normal Affect, Appropriate Assessment & Plan Assessment/Plan (1) Hypoxia: (2) Syncope: (3) Elevated troponin: (4) Hyperglycemia: (5) Fall: (6) Back pain: (7) Foot pain, bilateral: PLAN: Plan 1. Syncope unclear etiology possibly due to UTI/back pain and bilateral foot pain secondary to multiple ? TSH is normal ? Will start her on antibiotics as other symptomatology to indicate infection as well as a doubling of her white count today ? Urine cultures with 100,000 CFU of E. coli ? Echo with an EF of 60 to 65%, troponins are slightly elevated but she is denying any chest pain. Of note creatinine is slightly elevated compared to baseline which can elevate her troponin ? COVID and flu are unremarkable 2. Hypoxia ? Etiology is unclear VQ scan is negative for PE does indicate central obstruction and she does admit to using tobacco years ago, CT and chest x-ray were unremarkable ? Will trial her on DuoNebs and see if this causes any improvement in her respiratory status ? Her BNP was little bit elevated on admission so she was given a dose of IV Lasix ? As noted above respiratory panels are unremarkable 3. A-fib/HLD/HTN/chronic diastolic CHF ? Continue with her home Xarelto it is dose reduced for renal function ? Continue with her home blood pressure medications ? We will monitor make adjustments as necessary 4. GERD with history of GI bleed ? Proceeding with the Watchman procedure ? Continue with PPI ? Stable 5. CKD 3B ? Creatinine is little bit more elevated than baseline ? Will continue with her home medications and monitor make adjustments as indicated 6. Hypothyroidism ? TSH is normal ? Resume her home Synthroid DVT: Xarelto Capacity Legal [facility] Consultant Reflex Medical hold order details:: IF a medical hold is selected below, a suggested order for a MEDICAL HOLD will reflex upon signing the document. Next of kin: [place] law dictates a PRIORITY LIST for identifying legal decision-maker/legal next of kin in the following order (LNOK): 1st: The patient?s legal guardian, if any 2nd: The patient's spouse (if status is questionable, consult Risk Management) 3rd: The patient?s adult child(koby) (majority, if multiple children) 4th: The patient?s parents 5th: The patient?s adult siblings (majority, if multiple children siblings) Charges/Coding Visit Charges Inpatient E&M: 96796 Subs Hosp L2
[2023-07-15] MEDS: Ipratropium/Albuterol Sulfate 3 ML AMPUL.NEB INHALATION ×2 (13:39→21:05)
[2023-07-15] MEDS: Rivaroxaban 15 MG Tablet PO (16:21)
[2023-07-15] MEDS: Latanoprost 0.005% 1 Bottle 1 DRP EACH EYE (21:55)
[2023-07-16] VITALS (11 sets, daily range): BP systolic 143–156; BP diastolic 44–70; PULSE 59–76; RESP 14–17; TEMP 36.4–36.7; O2SAT 90–99
[2023-07-16] MEDS: hydrALAZINE 10 MG Tablet PO ×3 (00:26→13:08)
[2023-07-16] MEDS: Acetaminophen 500 MG Tablet 1000 MG PO ×2 (05:33→13:09)
[2023-07-16] MEDS: Levothyroxine 25 MCG TABLET PO (05:33)
[2023-07-16] MEDS: Lactated Ringers 1,000 ML 70 ML IV (05:38)
[2023-07-16] MEDS: Ipratropium/Albuterol Sulfate 3 ML AMPUL.NEB INHALATION ×2 (06:56→13:20)
[2023-07-16 07:47] LABS: Absolute Neutrophil Count 3.7 X10^3/uL (2.0-7.7); Basophil# 0.06 X10^3/uL; Basophil% 0.9 % (0-1); Eosinophil# 0.84 X10^3/uL; Eosinophils% 13.1 % (0-5); Lymphocyte % 18.8 % (19-41); Mean Corpuscular Hgb 30.9 pg (27.0-32.0); Mean Corpuscular Volume 96.5 fL (81-99); Mean Platelet Vol. 9.3 fl (6.2-12.0); Monocyte# 0.53 X10^3/uL; Monocyte% 8.3 % (0-10); NRBC Flagged by Analyzer 0 % (0-5); Neutrophil # 3.74 X10^3/uL (2.7-7.7); Neutrophil % 58.6 % (47-70); Platelet Count 114 K/mm3 (150-450); RBC Distribution Width CV 12.7 % (11.6-14.6); RBC Distribution Width SD 44.6 fl (35.1-43.9); Red Blood Count 2.59 M/mm3 (4.2-5.4); White Blood Count 6.4 K/mm3 (4.4-11.0)
[2023-07-16] MEDS: 0.9% Saline Lock 10 ML Syringe IV ×3 (08:16→12:10)
[2023-07-16 08:21] LABS: Anion Gap 4 (5-15); BUN 34 mg/dL (7-18); BUN/Creat Ratio 18.3 RATIO (10-20); Calcium,Total 8.8 mg/dL (8.5-10.1); Chloride 112 mmol/L (98-107); Creatinine, Serum 1.86 mg/dL (0.55-1.02); EST Glomerular Filtration Rate 27 mL/min (>60); Est Glom Filt Rate - Afr Amer 33 mL/min (>60); Estimated Creatinine Clearance 18.93 ml/min; Glucose 107 mg/dL (74-106); Potassium 3.9 mmol/L (3.5-5.1); Sodium Level 141 mmol/L (136-145)
[2023-07-16] MEDS: Carvedilol 12.5 MG Tablet PO (08:33)
[2023-07-16] MEDS: Potassium Chloride Oral Tablet 10 MEQ PO (08:33)
[2023-07-16] MEDS: Furosemide 20 MG/2 ML VIAL IV (10:26)
[2023-07-16] MEDS: Cholecalciferol (VIT D3) 25 MCG TABLET (1,000 UNITS) 50 MCG PO (10:29)
[2023-07-16] MEDS: Timolol 0.5% 5ML OPTH.BTL 1 DRP RIGHT EYE (10:29)
[2023-07-16] MEDS: Pantoprazole Sodium 40 MG Tablet PO (10:29)
[2023-07-16] MEDS: BRIMONIDINE 0.15% 5 ML Bottle 1 DRP OPHTHALMIC (10:29)
[2023-07-16] MEDS: Ciprofloxacin 400 MG/200 ML BAG 200 MG IV (10:30)
[2023-07-16] MEDS: Cyanocobalamin 500 MCG Tablet 1000 MCG PO (10:30)
[2023-07-16] MEDS: Losartan Potassium 50 MG Tablet PO (10:30)
--- NOTE | 2023-07-16 11:26 | PCM.PN.HOSP ---
Subjective Subjective Feels better than when she came in, no issues overnight Objective Data Objective Data Vital Signs: Vital Signs Temp Pulse Resp BP Pulse Ox O2 Del Method O2 Flow Rate 97.8 F 65 16 151/48 H 96 Room Air 2 07/16/23 10:22 07/16/23 10:22 07/16/23 10:22 07/16/23 10:22 07/16/23 10:22 07/16/23 10:22 07/16/23 08:21 Oxygen Flow Rate (L/min) [ 2 AMBULATING with Oxygen #1] Oxygen Flow Rate (L/min) 2 Oxygen Delivery Method Room Air Weight: 138 lb 10.732 oz Body Mass Index (BMI) 25.3 Intake & Output: Intake and Output for Last 24 Hours 07/15/23 07/16/23 07/17/23 03:59 03:59 03:59 Intake Total 2364.5 / 2364.5 2385 / 2385 1170.67 / 1170.67 Output Total 300 / 300 Balance 2064.5 / 2064.5 2385 / 2385 1170.67 / 1170.67 Lab / Micro Data 07/16/23 07:41 07/16/23 07:41 Labs: Laboratory Results - last 24 hr 07/16/23 07:41: WBC 6.4, RBC 2.59 L, Hgb 8.0 L, Hct 25.0 L, MCV 96.5, MCH 30.9, MCHC 32.0, RDW Std Deviation 44.6 H, RDW Coeff of Broderick 12.7, Plt Count 114 L, MPV 9.3, Immature Gran % (Auto) 0.300, Neut % (Auto) 58.6, Lymph % (Auto) 18.8 L, [place] % (Auto) 8.3, Eos % (Auto) 13.1 H, Baso % (Auto) 0.9, Absolute Neuts (auto) 3.7, Absolute Lymphs (auto) 1.20, Nucleated RBC % 0, Sodium 141, Potassium 3.9, Chloride 112 H, Carbon Dioxide 25.0, Anion Gap 4 L, BUN 34 H, Creatinine 1.86 H, Estim Creat Clear Calc 18.93, Est GFR (MDRD) Af Amer 33 L, Est GFR (MDRD) Non-Af 27 L, BUN/Creatinine Ratio 18.3, Glucose 107 H, Calcium 8.8 Micro: Microbiology 07/13/23 13:53 Urine, Random Urine Culture - Final Presumptive E. coli 07/13/23 13:53 Urine, Clean Catch Legionella Antigen - Final 07/13/23 13:53 Urine, Clean Catch Streptococcus pneumoniae Antigen (M - Final 07/13/23 17:15 Mucosa - Nasopharyngeal Respiratory Panel (PCR) - Final 07/13/23 11:25 Mucosa - Nose SARS-CoV-2, Influenza & RSV (PCR) - Final Physical Exam Narrative General: Alert, Oriented x3, Cooperative, No apparent distress HEENT: Atraumatic, PERRLA, EOMI, Normocephalic Oral: Moist Mucosa Neck: Supple, No JVD Lungs: Diminished, Normal air movement, No rhonchi, No wheeze, No rales Cardiovascular: Regular rate, Regular Rhythm, Normal S1, Normal S2, No murmurs Abdomen: Soft, Non Tender, Non-Distended, No Hepato-splenomegaly Extremities: No edema, Capillary Refill Less than 3 Seconds Skin: No rashes, No breakdown Musculoskeletal: No Tenderness to Palpation of Joints or Extremities Neurological: Cranial nerves II-XII grossly intact, Motor Exam 5/5 strength throughout, Sensory exam intact to light touch and pain Psych/Mental Status: Normal Affect, Appropriate Assessment & Plan Assessment/Plan (1) Hypoxia: (2) Syncope: (3) Elevated troponin: (4) Hyperglycemia: (5) Fall: (6) Back pain: (7) Foot pain, bilateral: PLAN: Plan 1. Syncope unclear etiology possibly due to UTI/back pain and bilateral foot pain secondary to multiple ? TSH is normal ? Will start her on antibiotics as other symptomatology to indicate infection as well as a doubling of her white count today ? Urine cultures with 100,000 CFU of E. coli ? Echo with an EF of 60 to 65%, troponins are slightly elevated but she is denying any chest pain. Of note creatinine is slightly elevated compared to baseline which can elevate her troponin ? COVID and flu are unremarkable 2. Hypoxia ? Etiology is unclear VQ scan is negative for PE does indicate central obstruction and she does admit to using tobacco years ago, CT and chest x-ray were unremarkable ? Will trial her on DuoNebs and see if this causes any improvement in her respiratory status ? Her BNP was little bit elevated on admission so she was given a dose of IV Lasix ? As noted above respiratory panels are unremarkable 3. A-fib/HLD/HTN/chronic diastolic CHF ? Continue with her home Xarelto it is dose reduced for renal function ? Continue with her home blood pressure medications ? We will monitor make adjustments as necessary 4. GERD with history of GI bleed/anemia ? Proceeding with the Watchman procedure ? Continue with PPI ? Unclear as to the etiology of her anemia unsure why she dropped to 8 today no obvious signs of bleeding will repeat an H&H this afternoon and obtain an iron panel as well as a stool occult if possible. 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 CKD 3B ? Creatinine is little bit more elevated than baseline ? Will continue with her home medications and monitor make adjustments as indicated 6. Hypothyroidism ? TSH is normal ? Resume her home Synthroid DVT: Xarelto Capacity Legal Director Of Convention Services Reflex Medical hold order details:: IF a medical hold is selected below, a suggested order for a MEDICAL HOLD will reflex upon signing the document. Next of kin: [place] law dictates a PRIORITY LIST for identifying legal decision-maker/legal next of kin in the following order (LNOK): 1st: The patient?s legal guardian, if any 2nd: The patient's spouse (if status is questionable, consult Risk Management) 3rd: The patient?s adult child(koby) (majority, if multiple children) 4th: The patient?s parents 5th: The patient?s adult siblings (majority, if multiple children siblings) Charges/Coding Visit Charges Inpatient E&M: 27309 Subs Hosp L2
[2023-07-16 12:44] LABS: Ferritin 142 ng/mL (8-252); Iron 27 ug/dL (50-170); Iron Binding Capacity,Total 190 ug/dL (250-450); PERCENT IRON SATURATION 14.2 % (15.0-55.0)
--- NOTE | 2023-07-16 13:08 | CASEMGMT ---
Addendum entered by Opal Breaux 07/16/23 16:10: Per Kayla @ [facility], they are able to accept pt w/SOC slated for tomorrow. Pt and dtr made aware. Addendum entered by Opal Breaux 07/16/23 15:56: Per Margarette [facility] is pt's preference. Call placed to Kayla [facility] and referral made. Awaiting response. Addendum entered by Opal Breaux 07/16/23 15:56: 1:45 PM: [facility] list that was prepared by Margarette meeting planner, was provided to pt at this time. Original Note: JUMA FERNANDES NOTE: JUMA FERNANDES to room. Pt sitting up in chair in room. Dtr @ bedside. Pt states she would like to discharge home and states she feels like she will be safe @ home alone. Dtr states she is not working currently and can assist pt and can even spend the night w/her if needed. Pt states she would like [facility]. Made aware a list will be provided for her to review and made aware to give top 3 preferences. They voice understanding. Home o2 testing completed today. Pt does not qualify for home O2. Sandra SCHULTE RN CM
[2023-07-16 13:11] LABS: Hematocrit 28.1 % (37-47); Hemoglobin 9.1 g/dL (12.0-15.0)
--- NOTE | 2023-07-16 13:16 | CASEMGMT ---
Discharge Planning A list of HH providers including quality and resource use data and consistent with the patient's preferred geographic region, medical needs, and insurance network was created in [facility] Guide.? This list was provided to the RN DENA. Margarette Booker, Discharge Planning Asst.
--- NOTE | 2023-07-16 14:03 | DCINST_ITS ---
Discharge Instructions Diet Discharge Diet: Low fat / Low cholesterol Activity Discharge Activity: Return to Normal Activity Dressing / Incision Call your doctor if you observe: Fever of 101 or Higher, Shortness of breath, Dizziness, Fainting spells, Swelling in the ankles, Chest pain and Increased palpitations (irregular heartbeat) Follow Up Care Test Results: Test results from this visit will be discussed in further detail at your follow- up appointment, if applicable. Discharge Plan Admission Admit Date/Time: 07/13/23 15:47 Attending Provider: Nirav Cain Primary Care Provider: Anay Barnard Consulting Providers: Akosua Sewell Instructions Additional Instructions / Restrictions: Follow-up with your PCP as an outpatient to monitor your hemoglobin. 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 Discharge Orders/Prescriptions Prescriptions: New ciprofloxacin HCl [Cipro] 500 mg tablet 500 mg PO DAILY 2 Days Qty: 2 0RF Continued omeprazole 40 mg capsule,delayed release(DR/EC) 40 mg PO DAILY levothyroxine 25 mcg tablet 25 mcg PO DAILY brimonidine 0.15 % drops 1 drp ophthalmic (eye) BID Rx Instructions: right eye mecobalamin (vitamin B12) 1,000 mcg tablet,chewable 1,000 mcg PO DAILY cholecalciferol (vitamin D3) 50 mcg (2,000 unit) capsule 50 mcg PO BID Prolia 60 mg/mL syringe 60 mg subcut [id number] Qty: 1 0RF latanoprost 1 DROP bottle 1 drp EACHEYE QHS Patient Comments: EYE DROP atorvastatin 20 MG tablet 20 mg PO QODAY Patient Comments: CHOLESTEROL timolol maleate 1 DROP drops 1 drp RIGHT EYE BID Patient Comments: EYE DROPS terazosin 2 mg capsule 2 mg PO QHS Patient Comments: take 1 capsule by mouth at bedtime potassium chloride 10 mEq capsule, extended release 10 meq PO BID trazodone 50 mg tablet PO PRN Patient Comments: take 1 tablet by mouth at bedtime if needed for sleep losartan 50 mg tablet 50 mg PO BID Qty: 180 4RF hydralazine 10 mg tablet 10 mg PO Q6H Xarelto 15 mg tablet 15 mg PO DINNER Qty: 30 11RF Hold Instructions: GI bleeding, anemia Rx Instructions: must administer with evening meal furosemide 20 mg tablet 20 mg PO Q OTHER DAY carvedilol 12.5 mg tablet 12.5 mg PO BID Qty: 180 3RF Rx Instructions: must administer with a meal/food Referrals / Follow Up: Anay Barnard MD [Primary Care Provider] - Within 1 Week Disposition Disposition (needs filled in before D/C Order can be placed): Home Health Service
--- NOTE | 2023-07-16 14:45 | PHA.DC_ITS ---
Pharmacy [facility] Pharmacy Service has performed discharge medication reconciliation and counseling for this patient. 1. CIPROFLOXACIN 500MG PO DAILY X 2 DAYS The patient's discharge medication list was reviewed for discrepancies and discrepancies were resolved. The patient was counseled on the following discharge medications and changes in medications for homegoing were reviewed. The Reason for Use, instructions for use, and potential side effects were reviewed for all new medications. The patient's questions regarding all of their medications were answered. The patient was able to verbally demonstrate an understanding of their discharge medications. Medications at Discharge Home Medications atorvastatin 20 mg tablet 20 mg PO QODAY Cholesterol 12/06/16 latanoprost 0.005 % eye drops 1 drp EACHEYE QHS eye drops 12/06/16 timolol maleate 0.5 % eye drops 1 drp RIGHT EYE BID eye drops 12/06/16 brimonidine 0.15 % eye drops 1 drp ophthalmic (eye) BID eye health 03/25/22 levothyroxine 25 mcg tablet 25 mcg PO DAILY thyroid 03/25/22 omeprazole 40 mg capsule,delayed release 40 mg PO DAILY gerd 03/25/22 losartan 50 mg tablet 50 mg PO BID bp #180 tabs 07/11/22 hydralazine 10 mg tablet 10 mg PO Q6H bp 09/24/22 rivaroxaban 15 mg tablet (Xarelto) 15 mg PO DINNER blood thinner #30 tabs 04/22/23 cholecalciferol (vitamin D3) 50 mcg (2,000 unit) capsule 50 mcg PO BID supplement 05/08/23 furosemide 20 mg tablet 20 mg PO Q OTHER DAY diuresis 05/08/23 mecobalamin (vitamin B12) 1,000 mcg chewable tablet 1,000 mcg PO DAILY supplement 05/08/23 carvedilol 12.5 mg tablet 12.5 mg PO BID bp #180 tabs 05/25/23 denosumab 60 mg/mL subcutaneous syringe (Prolia) 60 mg subcut [id number] bone health #1 mL 06/05/23 potassium chloride 10 mEq capsule,extended release 10 meq PO BID supplement 07/13/23 terazosin 2 mg capsule 2 mg PO QHS bp 07/13/23 trazodone 50 mg tablet mg PO PRN insomnia 07/13/23 ciprofloxacin HCl 500 mg tablet (Cipro) 500 mg PO DAILY 2 days #2 tabs 07/16/23
--- NOTE | 2023-07-16 15:50 | DS.PCM_ITS ---
Providers Date of Admission: 07/13/23 Primary Care Physician: Dr. Anay Barnard MD Reason For Visit: SYNCOPE Diagnosis Discharge Diagnosis (1) Hypoxia: Status: Acute Code(s): R09.02 - Hypoxemia (2) Syncope: Status: Acute Code(s): R55 - Syncope and collapse (3) Elevated troponin: Status: Acute Code(s): R79.89 - Other specified abnormal findings of blood chemistry (4) Hyperglycemia: Status: Acute Code(s): R73.9 - Hyperglycemia, unspecified (5) Fall: Status: Acute Code(s): W19.XXXA - Unspecified fall, initial encounter (6) Back pain: Status: Acute Code(s): M54.9 - Dorsalgia, unspecified (7) Foot pain, bilateral: Status: Acute Code(s): M79.671 - Pain in right foot; M79.672 - Pain in left foot Medications at Discharge Home Medications atorvastatin 20 mg tablet 20 mg PO QODAY Cholesterol 12/06/16 latanoprost 0.005 % eye drops 1 drp EACHEYE QHS eye drops 12/06/16 timolol maleate 0.5 % eye drops 1 drp RIGHT EYE BID eye drops 12/06/16 brimonidine 0.15 % eye drops 1 drp ophthalmic (eye) BID eye health 03/25/22 levothyroxine 25 mcg tablet 25 mcg PO DAILY thyroid 03/25/22 omeprazole 40 mg capsule,delayed release 40 mg PO DAILY gerd 03/25/22 losartan 50 mg tablet 50 mg PO BID bp #180 tabs 07/11/22 hydralazine 10 mg tablet 10 mg PO Q6H bp 09/24/22 rivaroxaban 15 mg tablet (Xarelto) 15 mg PO DINNER blood thinner #30 tabs 04/22/23 cholecalciferol (vitamin D3) 50 mcg (2,000 unit) capsule 50 mcg PO BID supplement 05/08/23 furosemide 20 mg tablet 20 mg PO Q OTHER DAY diuresis 05/08/23 mecobalamin (vitamin B12) 1,000 mcg chewable tablet 1,000 mcg PO DAILY supplement 05/08/23 carvedilol 12.5 mg tablet 12.5 mg PO BID bp #180 tabs 05/25/23 denosumab 60 mg/mL subcutaneous syringe (Prolia) 60 mg subcut [id number] bone InPlace #1 mL 06/05/23 potassium chloride 10 mEq capsule,extended release 10 meq PO BID supplement 07/13/23 terazosin 2 mg capsule 2 mg PO QHS bp 07/13/23 trazodone 50 mg tablet mg PO PRN insomnia 07/13/23 ciprofloxacin HCl 500 mg tablet (Cipro) 500 mg PO DAILY 2 days #2 tabs 07/16/23 Hospital Course Operations None Procedures 2-D Echocardiogram Summary of Care Provided Minutes Spent on Discharge: 37 Hospital Course: Per HPI: BERNADETTE ELIZABETH, is a 87 F who presented to the emergency department at [facility] on 07/13/2023 with a chief complaint of syncope. Patient reported that over the last couple days she has had some nausea but it had not prohibited her from eating or drinking normally and otherwise she was feeling fine up until this morning. She stated when she got up she felt okay and did her normal routine however in the late morning she got up to go to the bathroom and started to feel woozy, warm and nauseated. She walked to the bathroom where she fell but was not sure if she completely passed out. At that point she called her daughter for help and her daughter was able to help get her to the commode as she felt that she had to go to the bathroom but during that transition she had another episode of decreased responsiveness at which time she slumped over and her eyes were open but rolled back in her head. She did not notice any abnormal twitching or movement and the patient did not lose bowel or bladder function. The patient did complain of some nausea during this time as well. The patient reported that she rolled over on her feet and was complaining of pain in both of her feet at the time of my evaluation as well as back pain as she fell on her back as well. She has a history of osteoporosis for which she was taking Fosamax. This was recently stopped by Dr. Basilio as she had been on it for extended period of time and the plan was to transition to Prolia in the near future. At the time of my evaluation the patient stated she felt incredibly tired and had mild nausea but had no other complaints. She was found to be hypoxic on room air at 86% was placed on 2 L nasal cannula. During my examination I did stop her oxygen to see what her oxygen saturations would do and she again desatted to 87% on room air. She does not have a history of any lung disease and does not wear oxygen at baseline. He had no respiratory complaints at all. She is chronically anticoagulated with rivaroxaban and is compliant. Her family did report that she was recently started on terazosin and as she tends to have fairly fluctuant blood pressures that vary from 1 20-160 systolic and her family reports that every time she goes to the doctor they change her blood pressure medication. They did indicate that recently renal duplex has been ordered as an outpatient for further evaluation for renal artery stenosis as a cause for her fluctuant blood pressures. Vital signs on presentation showed a temperature of 96.3, heart rate was 56, blood pressure was 147/57, respiratory rate was 16 and oxygen saturations were 86% on room air and improved to 93 to 98% on 2 L nasal cannula. Her CBC was overall unremarkable other than a chronic stable anemia with a hemoglobin of 10 (baseline appears to run between 10 and 11.) Her white count was normal and her differential was unremarkable. Her chemistry panel showed a BUN of 29 and a serum creatinine of 1.7 which were slightly above her baseline (baseline creatinine 1.5-1.65). Her serum glucose was 165 with no history of diabetes. Her initial troponin was 116 with a repeat at 119. Her BNP was slightly elevated however markedly lower than previous at 217.9. Her UA was suggestive of infection with positive nitrates and leuk esterase with 3+ bacteria however the patient was completely asymptomatic and had no dysuria or frequency. CT of the brain showed only chronic involutional changes. Chest x-ray showed mild elevation of the left hemidiaphragm but was otherwise unremarkable. CT of the chest showed mild pericardial thickening and mild increase markings at the lung apices suggestive of either atelectasis or scarring but was otherwise unremarkable. Strays of bilateral feet were suggestive of osteopenia with osteoarthritis but no acute fracture or subluxation was identified. Lumbar films were unremarkable as well. EKG demonstrated sinus bradycardia with a heart rate of 52, normal intervals and no acute ischemic changes. Hospital Course: 1. Syncope unclear etiology possibly due to UTI/back pain and bilateral foot pain secondary to multiple ? TSH is normal ? Urine cultures with E. coli continue with Cipro for 2 more days ? Echo with an EF of 60 to 65%, troponins are slightly elevated but she is denying any chest pain. Of note creatinine is slightly elevated compared to baseline which can elevate her troponin ? COVID and flu are unremarkable ? I discussed with her the plan for discharge and she expressed understanding of the risk and benefits of going home and is okay with going home today. Will continue with 2 more days of p.o. Cipro and the dosing will be daily secondary to her creatinine clearance. 2. Hypoxia ? Etiology is unclear VQ scan is negative for PE does indicate central obstruction and she does admit to using tobacco years ago, CT and chest x-ray were unremarkable ? Will trial her on DuoNebs and see if this causes any improvement in her respiratory status ? Her BNP was little bit elevated on admission so she was given a dose of IV Lasix ? As noted above respiratory panels are unremarkable ? She had ambulatory pulse ox today which did not demonstrate a need for oxygen and she has been on room air all day 3. A-fib/HLD/HTN/chronic diastolic CHF ? Continue with her home Xarelto it is dose reduced for renal function ? Continue with her home blood pressure medications ? We will monitor make adjustments as necessary 4. GERD with history of GI bleed/anemia ? Proceeding with the Watchman procedure ? Continue with PPI ? Hemoglobin this morning was 8.0 and repeat was 9.1 this afternoon likely the 8.0 was incorrect that she denies any dark stools or bloody stools. I do recommend that she follow-up with her PCP in 3 to 5 days to obtain an outpatient CBC to monitor her hemoglobin. In the meantime okay to continue with Xarelto and her PPI 5. CKD 3B ? Creatinine is little bit more elevated than baseline ? Will continue with her home medications and monitor make adjustments as indica carlos 6. Hypothyroidism ? TSH is normal ? Resume her home Synthroid Weight / BMI Weight Weight: 138 lb 10.732 oz Body Mass Index (BMI) 25.3 ABG / Lab / Microbiology Data 07/16/23 13:02 07/16/23 07:41 Laboratory: Laboratory Results - last 24 hr 07/16/23 07:41: WBC 6.4, RBC 2.59 L, Hgb 8.0 L, Hct 25.0 L, MCV 96.5, MCH 30.9, MCHC 32.0, RDW Std Deviation 44.6 H, RDW Coeff of Broderick 12.7, Plt Count 114 L, MPV 9.3, Immature Gran % (Auto) 0.300, Neut % (Auto) 58.6, Lymph % (Auto) 18.8 L, Turner % (Auto) 8.3, Eos % (Auto) 13.1 H, Baso % (Auto) 0.9, Absolute Neuts (auto) 3.7, Absolute Lymphs (auto) 1.20, Nucleated RBC % 0, Sodium 141, Potassium 3.9, Chloride 112 H, Carbon Dioxide 25.0, Anion Gap 4 L, BUN 34 H, Creatinine 1.86 H, Estim Creat Clear Calc 18.93, Est GFR (MDRD) Af Amer 33 L, Est GFR (MDRD) Non-Af 27 L, BUN/Creatinine Ratio 18.3, Glucose 107 H, Calcium 8.8, Iron 27 L, TIBC 190 L, Iron Saturation 14.2 L, Ferritin 142 07/16/23 13:02: Hgb 9.1 L, Hct 28.1 L Microbiology: Microbiology 07/13/23 13:53 Urine, Random Urine Culture - Final Presumptive E. coli 07/13/23 13:53 Urine, Clean Catch Legionella Antigen - Final 07/13/23 13:53 Urine, Clean Catch Streptococcus pneumoniae Antigen (M - Final 07/13/23 17:15 Mucosa - Nasopharyngeal Respiratory Panel (PCR) - Final 07/13/23 11:25 Mucosa - Nose SARS-CoV-2, Influenza & RSV (PCR) - Final D/C Instructions Discharge Diet: Low fat / Low cholesterol Call your doctor if you observe: Fever of 101 or Higher, Shortness of breath, Dizziness, Fainting spells, Swelling in the ankles, Chest pain and Increased palpitations (irregular heartbeat) Meaningful Use Info Meaningful Use Diagnoses (Choose all that apply): None applicable Discharge Plan Admission Admit Date/Time: 07/13/23 15:47 Attending Provider: Nirav Cain Primary Care Provider: Anay Barnard Consulting Providers: Akosua Sewell Instructions Additional Instructions / Restrictions: Follow-up with your PCP as an outpatient to monitor your hemoglobin. 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 Discharge Orders/Prescriptions Prescriptions: New ciprofloxacin HCl [Cipro] 500 mg tablet 500 mg PO DAILY 2 Days Qty: 2 0RF Continued omeprazole 40 mg capsule,delayed release(DR/EC) 40 mg PO DAILY levothyroxine 25 mcg tablet 25 mcg PO DAILY brimonidine 0.15 % drops 1 drp ophthalmic (eye) BID Rx Instructions: right eye mecobalamin (vitamin B12) 1,000 mcg tablet,chewable 1,000 mcg PO DAILY cholecalciferol (vitamin D3) 50 mcg (2,000 unit) capsule 50 mcg PO BID Prolia 60 mg/mL syringe 60 mg subcut [id number] Qty: 1 0RF latanoprost 1 DROP bottle 1 drp EACHEYE QHS Patient Comments: EYE DROP atorvastatin 20 MG tablet 20 mg PO QODAY Patient Comments: CHOLESTEROL timolol maleate 1 DROP drops 1 drp RIGHT EYE BID Patient Comments: EYE DROPS terazosin 2 mg capsule 2 mg PO QHS Patient Comments: take 1 capsule by mouth at bedtime potassium chloride 10 mEq capsule, extended release 10 meq PO BID trazodone 50 mg tablet PO PRN Patient Comments: take 1 tablet by mouth at bedtime if needed for sleep losartan 50 mg tablet 50 mg PO BID Qty: 180 4RF hydralazine 10 mg tablet 10 mg PO Q6H Xarelto 15 mg tablet 15 mg PO DINNER Qty: 30 11RF Hold Instructions: GI bleeding, anemia Rx Instructions: must administer with evening meal furosemide 20 mg tablet 20 mg PO Q OTHER DAY carvedilol 12.5 mg tablet 12.5 mg PO BID Qty: 180 3RF Rx Instructions: must administer with a meal/food Referrals / Follow Up: Ruth Fallon NP, [facility] [Non-Staff -Ordering Privileges] - 07/24/23 11:00 am Disposition Disposition (needs filled in before D/C Order can be placed): Home Health Service Charges/Coding Visit Charges Inpatient E&M: 65987 Disch Hosp >30min
== END 2023-07-16 17:18 | disposition home health service (06) | DRG 690 ==
LOC: ED 12:22 → PCU 13:45
PROVIDERS: Physician Assistant; Admitting Provider Internal Medicine; Emergency Provider Emergency Medicine; PCP Internal Medicine; Visit Provider Family Medicine
DX: N39.0 Urinary tract infection, site not specified (principal); I13.0 Hypertensive heart and chronic kidney disease with heart failure and stage 1 through stage 4 chronic kidney disease, or unspecified chronic kidney disease; I50.32 Chronic diastolic (congestive) heart failure; I48.0 Paroxysmal atrial fibrillation; E03.9 Hypothyroidism, unspecified; R55 Syncope and collapse; B96.20 Unspecified Escherichia coli [E. coli] as the cause of diseases classified elsewhere; N18.32 Chronic kidney disease, stage 3b; M79.672 Pain in left foot; M79.671 Pain in right foot; K21.9 Gastro-esophageal reflux disease without esophagitis; M54.9 Dorsalgia, unspecified; E78.5 Hyperlipidemia, unspecified; R00.1 Bradycardia, unspecified; M81.0 Age-related osteoporosis without current pathological fracture; R09.02 Hypoxemia; R73.9 Hyperglycemia, unspecified; Z11.52 Encounter for screening for COVID-19; H40.9 Unspecified glaucoma; Z66 Do not resuscitate; Z79.01 Long term (current) use of anticoagulants; Z79.890 Hormone replacement therapy; Z79.899 Other long term (current) drug therapy; Z79.891 Long term (current) use of opiate analgesic; G47.00 Insomnia, unspecified
CPT/HCPCS: 36415; 70450; 71045; 71250; 72100; 73630; 78582; 80048; 80053; 81001; 82728; 83036; 83540; 83550; 83735; 83880; 84100; 84443; 84484; 85014; 85018; 85025; 87086; 87088; 87186; 87449; 87631; 87633; 93005; 93306; 94640; 94668; 97162; 97166; 97530; 99252; 99285; A9540; A9567; J7120; Q9957; A4216; G0463; J0744; J1940

== ENCOUNTER → 2023-08-20 | Outpatient (CLI) | payer MEDICARE, SELFPAY | END | disposition home or self-care (01) | LOC: LABSPEC 13:42 | PROVIDERS: PCP Internal Medicine; Visit Provider Internal Medicine Nephrology | DX: N39.0 Urinary tract infection, site not specified (principal) | CPT/HCPCS: 87086 ==

== ENCOUNTER → 2023-10-28 | Outpatient (CLI) | payer MEDICARE, SELFPAY ==
[2023-10-28 15:26] LABS: Hematocrit 30.5 % (37-47); Hemoglobin 9.7 g/dL (12.0-15.0); Mean Corp Hgb Conc 31.8 g/dL (32-36); Mean Corpuscular Hgb 30.5 pg (27.0-32.0); Mean Corpuscular Volume 95.9 fL (81-99); Mean Platelet Vol. 10.2 fl (6.2-12.0); Platelet Count 185 K/mm3 (150-450); RBC Distribution Width CV 12.8 % (11.6-14.6); RBC Distribution Width SD 45.1 fl (35.1-43.9); Red Blood Count 3.18 M/mm3 (4.2-5.4); White Blood Count 5.3 K/mm3 (4.4-11.0)
[2023-10-28 15:41] LABS: Albumin, Serum 3.6 g/dL (3.2-5.0); BUN 25 mg/dL (7-18); BUN/Creat Ratio 18.7 RATIO (10-20); Calcium,Total 8.6 mg/dL (8.5-10.1); Chloride 113 mmol/L (98-107); Creatinine, Serum 1.34 mg/dL (0.55-1.02); EST Glomerular Filtration Rate 40 mL/min (>60); Est Glom Filt Rate - Afr Amer 48 mL/min (>60); Ferritin 41 ng/mL (8-252); Glucose 95 mg/dL (74-106); Iron 62 ug/dL (50-170); Iron Binding Capacity,Total 262 ug/dL (250-450); Phosphorus 2.3 mg/dL (2.5-4.9); Sodium Level 141 mmol/L (136-145)
== END | disposition home or self-care (01) ==
LOC: POLAB3 14:45
PROVIDERS: PCP Internal Medicine; Visit Provider Internal Medicine Nephrology
DX: N18.32 Chronic kidney disease, stage 3b (principal); D50.9 Iron deficiency anemia, unspecified
CPT/HCPCS: 36415; 80069; 82728; 83540; 83550; 85027

== ENCOUNTER → 2024-05-04 | Outpatient (CLI) | payer MEDICARE, SELFPAY ==
[2024-05-04 12:42] LABS: Hematocrit 32.4 % (37-47); Hemoglobin 10.6 g/dL (12.0-15.0); Mean Corp Hgb Conc 32.7 g/dL (32-36); Mean Corpuscular Hgb 31.8 pg (27.0-32.0); Mean Corpuscular Volume 97.3 fL (81-99); Platelet Count 222 K/mm3 (150-450); RBC Distribution Width CV 12.8 % (11.6-14.6); RBC Distribution Width SD 45.2 fl (35.1-43.9); Red Blood Count 3.33 M/mm3 (4.2-5.4); White Blood Count 6.8 K/mm3 (4.4-11.0)
[2024-05-04 13:14] LABS: Albumin, Serum 3.5 g/dL (3.2-5.0); BUN 21 mg/dL (7-18); BUN/Creat Ratio 17.1 RATIO (10-20); Chloride 112 mmol/L (98-107); Creatinine, Serum 1.23 mg/dL (0.55-1.02); EST Glomerular Filtration Rate 44 mL/min (>60); Est Glom Filt Rate - Afr Amer 53 mL/min (>60); Ferritin 69 ng/mL (8-252); Glucose 105 mg/dL (74-106); Iron 60 ug/dL (50-170); Iron Binding Capacity,Total 236 ug/dL (250-450); PERCENT IRON SATURATION 25.4 % (15.0-55.0); Phosphorus 2.4 mg/dL (2.5-4.9); Potassium 4.3 mmol/L (3.5-5.1); Sodium Level 140 mmol/L (136-145)
== END | disposition home or self-care (01) ==
LOC: POLAB3 11:55
PROVIDERS: PCP Internal Medicine; Visit Provider Internal Medicine Nephrology
DX: N18.32 Chronic kidney disease, stage 3b (principal); D50.9 Iron deficiency anemia, unspecified
CPT/HCPCS: 36415; 80069; 82728; 83540; 83550; 85027

== ENCOUNTER 2024-08-26 23:47 | Emergency (ER) | payer MEDICARE, SELFPAY ==
[2024-08-26 23:51] VITALS: BP 255/85; PULSE 60; RESP 16; TEMP 36.6; O2SAT 98; BMI 26.4
[2024-08-27 00:17] VITALS: BP 225/70
--- NOTE | 2024-08-27 00:36 | EKG12_ITS ---
Test Reason : DYSRHYTHMIA Blood Pressure : */* mmHG Vent. Rate : 54 BPM Atrial Rate : 54 BPM P-R Int : 180 ms QRS Dur : 84 ms QT Int : 416 ms P-R-T Axes : 77 24 57 degrees QTcB Int : 394 ms Sinus bradycardia with Premature atrial complexes Nonspecific ST abnormality Abnormal ECG Confirmed by Jacob Kingston [id number]), editor publications [facility] ASHLEY ([id number]) on 08/29/2024 10:52:18 AM Referred By: ADRIANA Confirmed By: Jacob Kingston
--- NOTE | 2024-08-27 00:36 | EX.ED.DYSGE1 ---
HPI History of Present Illness Chief Complaint: Hypertension Informant: patient and family Narrative Narrative: 88-year-old female presenting for elevated blood pressure readings at home in the 229 range. She states she checks it every day. This past week it has ranged from 130s to 160s systolic. She has had no symptoms with any of those readings, and she has had no symptoms today or tonight. She states this morning she had a noninvasive vascular test done on her legs, involve the blood pressure cuffs and lots of squeezing tightly, and while she was there her blood pressure was elevated around 190. Therefore she states she has been measuring it all day, and it has been going higher. She denies any headache, vision changes, chest discomfort, dyspnea, palpitations, weakness or numbness in her extremities, vomiting, sudden weakness, lightheadedness, near-syncope or syncope. She states she feels the same as usual. She has had no recent changes in any of her blood pressure medications. She is compliant with her medications and never misses her pills. She states her blood pressure has fluctuated in the past and her primary and kidney doctor have had issues regulating her pressure; once she took an extra hydralazine, a fourth 1, and a single day and it made her blood pressure low at 108 and she was symptomatic and feeling poorly from it so they did not do that anymore. [facility] Medical History Hypothyroidism (acquired) Wears glasses Post-menopausal Thyroid disease Gastric reflux Former smoker History of edema History of echocardiogram History of stress test Cardiology follow-up encounter History of CHF (congestive heart failure) Paroxysmal atrial fibrillation Stage 3b chronic kidney disease (CKD) Elevated liver enzymes CKD (chronic kidney disease) stage 4, GFR 15-29 ml/min Stage 3b chronic kidney disease (CKD) Lymphedema of both lower extremities Bilateral lower extremity edema Dyspnea on exertion Pneumonia (03/19/22) Essential hypertension Atrial fibrillation, new onset Positive occult stool blood test Umbilical hernia Osteoporosis Hemorrhage of anus and rectum Glaucoma Acquired keratoderma Anemia Syncope Essential hypertension Sweating Palpitations Near syncope Hernia HLD (hyperlipidemia) Home Medications ?Medication ?Instructions ?Recorded ?Last Taken ?Type atorvastatin 20 mg tablet 20 mg PO QODAY Cholesterol 12/06/16 07/12/23 09:00 History latanoprost 0.005 % eye drops 1 drp [facility] eye drops 12/06/16 07/12/23 21:00 History timolol maleate 0.5 % eye drops 1 drp RIGHT EYE BID eye drops 12/06/16 07/13/23 09:00 History brimonidine 0.15 % eye drops 1 drp ophthalmic (eye) BID eye 03/25/22 07/13/23 09:00 History health levothyroxine 25 mcg tablet 25 mcg PO DAILY thyroid 03/25/22 07/13/23 08:00 History losartan 50 mg tablet 50 mg PO BID bp #180 tabs 07/11/22 07/13/23 09:00 Rx cholecalciferol (vitamin D3) 50 50 mcg PO BID supplement 05/08/23 07/13/23 09:00 History mcg (2,000 unit) capsule mecobalamin (vitamin B12) 1,000 1,000 mcg PO DAILY supplement 05/08/23 07/13/23 09:00 History mcg chewable tablet denosumab 60 mg/mL subcutaneous 60 mg subcut [id number] bone health 08/20/23 Unknown History syringe (Prolia) hydralazine 25 mg tablet 25 mg PO TID #270 tabs 10/28/23 Unknown Rx rivaroxaban 15 mg tablet (Xarelto) 15 mg PO DINNER blood thinner #30 04/25/24 Unknown Rx tabs furosemide 20 mg tablet 20 mg PO Q OTHER DAY PRN diuresis 06/14/24 Unknown History omeprazole 40 mg capsule,delayed 20 mg PO DAILY gerd 06/14/24 Unknown History release carvedilol 12.5 mg tablet 12.5 mg PO BID bp #180 tabs 08/17/24 Unknown Rx potassium chloride 10 mEq 20 meq PO DAILY 08/27/24 Unknown History capsule,extended release vibegron 75 mg tablet (Gemtesa) 75 mg PO DAILY 08/27/24 Unknown History Allergy/AdvReac Type Severity Reaction Status Date / Time amantadine Allergy Rash Verified 08/26/24 23:50 cephalexin Allergy Rash Verified 08/26/24 23:50 erythromycin base Allergy Rash Verified 08/26/24 23:50 hydrochlorothiazide Allergy Rash Verified 08/26/24 23:50 Iodinated Contrast Media Allergy Rash Verified 08/26/24 23:50 amlodipine (From [employer]) AdvReac Other Verified 08/26/24 23:50 Family History Mother CAD (coronary artery disease) Father CAD (coronary artery disease) Brother CAD (coronary artery disease) Sister CAD (coronary artery disease) Surgical History History of cardiac catheterization Hx of esophagogastroduodenoscopy History of colonoscopy History of hysteroscopy H/O hernia repair Tubal ligation status History of left heart catheterization (02/05/18) s/p left wrist ORIF Social History household members: none housing: apartment number of children: 4 Smoking Status: Former smoker quit date: 06/29/76 alcohol intake: never substance use type: does not use caffeine: Yes (Occasionally) ROS ROS ED Constitutional Constitutional ED: Denies chills or fever(s) Eyes Eyes: Denies change in vision or diplopia ENT ENT ED: Denies rhinorrhea or sore throat Cardiovascular Cardiovascular: Denies chest pain or palpitations Respiratory/Chest Respiratory/Chest: Denies cough or dyspnea Gastrointestinal Gastrointestinal: Denies abdominal pain, diarrhea, nausea or vomiting Genitourinary Genitourinary ED: Denies dysuria or hematuria Musculoskeletal Musculoskeletal: Denies back pain or neck pain Integumentary Denies abscess or rash Neurologic Neurologic: Denies headache(s), paresthesias or weakness EXAM Physical Exam Const Vital Signs: 08/26/24 23:51 08/26/24 23:58 08/27/24 00:17 Temperature 98 F Temperature Source Oral Pulse Rate 60 Respiratory Rate 16 Respiratory Effort Normal Non-Labored Respiratory Pattern Normal Blood Pressure 255/85 H 225/70 H Blood Pressure Mean 141 121 Pulse Ox 98 Oxygen Delivery Method Room Air 08/27/24 01:00 Temperature Temperature Source Pulse Rate 54 L Respiratory Rate 16 Respiratory Effort Respiratory Pattern Blood Pressure 198/56 H Blood Pressure Mean 103 Pulse Ox 95 Oxygen Delivery Method Room Air Positive well nourished and well developed General Appearance ED: well developed and NAD HEENT Reports moist mucous membranes normocephalic and atraumatic Eyes PERRL and EOMs intact bilaterally Neck full ROM and supple Resp normal respiratory effort and clear to auscultation bilaterally Cardio no murmurs Cardio Narrative: Occasionally irregular but for the most part regular, heart rate in the 50s. Correlating with PACs on the monitor. GI non-tender and non-distended Auscultation: normoactive bowel sounds Palpation: soft Back/Spine no CVA tenderness General Back: other FROM Extremity normal to inspection Extremity Narrative: 2+/4 easily palpable dorsalis pedis pulses bilaterally and symmetric. Normal radial pulses. General Extremety ED: Negative for edema, pulses abnormal or tenderness General Extremity: Negative for edema or pulses abnormal Neuro oriented x3, CN's II-XII intact bilaterally and no sensory deficits noted Sensorium / Orientation: awake and alert Motor Exam: strength 5/5 throughout Psych mental status grossly normal Skin no rashes or lesions noted and no wounds MDM MDM MDM Narrative Medical decision making narrative: Prior to my evaluation patient has had a couple of high blood pressures ranging from 255 systolic down to 180 systolic. Diastolics are in the 70-85 range. With the history she is telling me I reviewed her last echocardiogram which was from just over 1 year ago, does not show any history of aortic stenosis. Minimal mitral and tricuspid regurg. I am still going to steer clear of hydralazine at this time, I do not want to give her hypotension since she is asymptomatic. I am rechecking her renal function, staff did an EKG because her rate was irregular on the monitor, shows PACs but is otherwise normal sinus rhythm and no acute injury or signs of ischemia, some given her a clonidine while we check her chemistries. Chemistries are noted, creatinine is a little higher than her prior several months ago, but she has been much higher than this in the past and it is not high enough to warrant changing medications or admitting her to the hospital at this time. After the medication her blood pressures in the 190s, shortly thereafter 185/60, still asymptomatic. The rest of her vital signs are normal. I feel she can be safely discharged home to follow-up soon as possible as an outpatient. We discussed symptoms that would indicate immediate return to the emergency department. History & Record Review Discussion w/independent historian: Patient and Family Additional record(s) reviewed:: Prior labs (Echo from last year) Lab Data Attestation: I reviewed the patient's lab results. Labs: Laboratory Results - last 24 hr 08/27/24 00:12 Sodium 140 Potassium 4.1 Chloride Direct 107 Carbon Dioxide 21.7 L Anion Gap 12 BUN 27 H Creatinine 1.44 H Estim Creat Clear Calc 24.43 Est GFR (MDRD) Non-Af 35 L BUN/Creatinine Ratio 18.5 Glucose 104 H Calcium 9.1 Rhythm Strip Rhythm Strip: Sinus Rhythm Rate: 57 Ectopy: PAC(s) EKG Initial EKG: Interpretation: No Acute Injury Pattern and Sinus Bradycardia Comments: PACs. Normal axis, normal intervals otherwise, normal EKG Discharge Plan Triage Chief Complaint: Hypertension ED Provider: Vincent Chan Dx/Rx/DC Orders Clinical Impression: Accelerated hypertension, PAC (premature atrial contraction) Instructions: Hypertension Dc Prescriptions: No Action levothyroxine 25 mcg tablet 25 mcg PO DAILY brimonidine 0.15 % drops 1 drp ophthalmic (eye) BID Rx Instructions: right eye omeprazole 40 mg capsule,delayed release(DR/EC) 20 mg PO DAILY Prolia 60 mg/mL syringe 60 mg subcut [id number] Patient Comments: will start in september mecobalamin (vitamin B12) 1,000 mcg tablet,chewable 1,000 mcg PO DAILY cholecalciferol (vitamin D3) 50 mcg (2,000 unit) capsule 50 mcg PO BID hydralazine 25 mg tablet 25 mg PO TID Qty: 270 3RF latanoprost 1 DROP bottle 1 drp EACHEYE QHS Patient Comments: EYE DROP atorvastatin 20 MG tablet 20 mg PO QODAY Patient Comments: CHOLESTEROL timolol maleate 1 DROP drops 1 drp RIGHT EYE BID Patient Comments: EYE DROPS potassium chloride 10 mEq capsule, extended release 20 meq PO DAILY Rx Instructions: take 2 capsules by mouth once daily Gemtesa 75 mg tablet 75 mg PO DAILY losartan 50 mg tablet 50 mg PO BID Qty: 180 4RF Xarelto 15 mg tablet 15 mg PO DINNER Qty: 30 11RF Rx Instructions: must administer with evening meal furosemide 20 mg tablet 20 mg PO Q OTHER DAY PRN (Reason: diuresis) carvedilol 12.5 mg tablet 12.5 mg PO BID Qty: 180 3RF Rx Instructions: must administer with a meal/food Primary Care Provider: Anay Barnard Referrals: Anay Barnard MD [Primary Care Provider] - As soon as possible Activity Restrictions/Additional Instructions: If over 200 at home, and not having any new symptoms, may take an extra losartan 50 mg. If your blood pressure is over 200 and you are having new symptoms such as a bad headache, vision loss, chest pain, shortness of breath, or numbness/weakness on one side of your body, return to the ER immediately Print Language: Cameroonian Disposition Disposition: Home, Self Care
[2024-08-27] MEDS: cloNIDine HCl 0.1 MG Tablet PO (00:54)
[2024-08-27 01:00] VITALS: BP 198/56; PULSE 54; RESP 16; O2SAT 95
[2024-08-27 01:21] LABS: Anion Gap 12 (5-15); BUN 27 mg/dL (4-19); BUN/Creat Ratio 18.5 RATIO (10-20); Calcium 9.1 mg/dL (7.6-11.0); Carbon Dioxide 21.7 mmol/L (22.0-29.0); Chloride 107 mmol/L (96-108); Creatinine, Serum 1.44 mg/dL (0.70-1.20); EST Glomerular Filtration Rate 35 (>60); Estimated Creatinine Clearance 24.43 ml/min; Glucose 104 mg/dL (70-99); Potassium 4.1 mmol/L (3.3-5.1); Sodium Level 140 mmol/L (133-145)
[2024-08-27 01:51] VITALS: BP 185/60; PULSE 60; RESP 18; TEMP 36.7; O2SAT 94
== END 2024-08-27 01:59 | disposition home or self-care (01) ==
PROVIDERS: Emergency Provider Emergency Medicine; PCP Internal Medicine; Visit Provider Emergency Medicine
DX: I13.0 Hypertensive heart and chronic kidney disease with heart failure and stage 1 through stage 4 chronic kidney disease, or unspecified chronic kidney disease (principal); N18.4 Chronic kidney disease, stage 4 (severe); I50.9 Heart failure, unspecified; I48.0 Paroxysmal atrial fibrillation; I49.1 Atrial premature depolarization; E78.5 Hyperlipidemia, unspecified; E03.9 Hypothyroidism, unspecified; K21.9 Gastro-esophageal reflux disease without esophagitis; Z79.899 Other long term (current) drug therapy; Z87.891 Personal history of nicotine dependence
CPT/HCPCS: 80048; 93005; 99284; A4216

== ENCOUNTER 2024-10-11 11:05 | Inpatient (IN) | payer MEDICARE, SELFPAY ==
[2024-10-11] VITALS (22 sets, daily range): BP systolic 94–151; BP diastolic 45–108; PULSE 61–130; RESP 16–23; TEMP 36.5–36.7; O2SAT 94–98; BMI 25.9; BMI 25.4
--- NOTE | 2024-10-11 11:15 | EKG12_ITS ---
Test Reason : CP Blood Pressure : */* mmHG Vent. Rate : 133 BPM Atrial Rate : * BPM P-R Int : * ms QRS Dur : 80 ms QT Int : 294 ms P-R-T Axes : * 40 58 degrees QTcB Int : 437 ms Atrial fibrillation with rapid ventricular response Nonspecific ST abnormality Abnormal ECG Confirmed by Jacob Kingston ([id number]), communications editor L[facility] ASHLEY ([id number]) on 10/14/2024 6:29:01 AM Referred By: Confirmed By: Jacob Kingston
--- NOTE | 2024-10-11 11:15 | RAD_ITS ---
PROCEDURE: CHEST 1 VIEW (PORTABLE) 10/11/2024 REASON FOR EXAM: CHEST PAIN Tachycardia. TECHNIQUE: Frontal view of the chest. COMPARISON: None FINDINGS: Hardware: EKG electrodes are seen. Heart: Heart size and measures upper limits of normal. Lungs: The lungs are clear. Bones: Degenerative changes are identified within the thoracic spine. Other: Calcification of the aortic arch. RAD/Chest 1 View (Portable) IMPRESSION: Borderline cardiomegaly. The lungs are clear. Reading Location: [facility]
--- NOTE | 2024-10-11 11:15 | NURSING ---
called for EKG
--- NOTE | 2024-10-11 11:41 | EX.ED.DYSGE1 ---
HPI <YECENIA Muller - Last Filed: 10/11/24 14:00> History of Present Illness Chief Complaint: Chest Pain Narrative Narrative: Patient is a 88-year-old female with history of hypertension, atrial fibrillation with RVR, on Xarelto, history of irregular heartbeat, presenting to the ER department for fast heart rate, chest burning. Patient states that over the last several weeks, she has been treated with Macrobid, Cipro, as well as Bactrim. Last time she took was 2 days ago. Patient states that around 12 AM this morning, she developed chest burning with a heart rate of 136. This lasted till 4 AM. She states that she can still feel that her heart rate is elevated. She denies any significant chest pain at this time, fever chills nausea vomiting. She stopped the Bactrim yesterday because she thinks it is making her cough. Here for evaluation. [facility] <YECENIA Muller - Last Filed: 10/11/24 14:00> [facility] Medical History Hypothyroidism (acquired) Wears glasses Post-menopausal Thyroid disease Gastric reflux Former smoker History of edema History of echocardiogram History of stress test Cardiology follow-up encounter History of CHF (congestive heart failure) Paroxysmal atrial fibrillation Stage 3b chronic kidney disease (CKD) Elevated liver enzymes CKD (chronic kidney disease) stage 4, GFR 15-29 ml/min Stage 3b chronic kidney disease (CKD) Lymphedema of both lower extremities Bilateral lower extremity edema Dyspnea on exertion Pneumonia (03/19/22) Essential hypertension Atrial fibrillation, new onset Positive occult stool blood test Umbilical hernia Osteoporosis Hemorrhage of anus and rectum Glaucoma Acquired keratoderma Anemia Syncope Essential hypertension Sweating Palpitations Near syncope Hernia HLD (hyperlipidemia) Home Medications ?Medication ?Instructions ?Recorded ?Last Taken ?Type atorvastatin 20 mg tablet 20 mg PO QODAY Cholesterol 12/06/16 07/12/23 09:00 History latanoprost 0.005 % eye drops 1 drp ophthalmic (eye) BID eye 12/06/16 10/10/24 History drops timolol maleate 0.5 % eye drops 1 drp RIGHT EYE BID eye drops 12/06/16 10/10/24 History brimonidine 0.15 % eye drops 1 drp ophthalmic (eye) BID eye 03/25/22 10/10/24 History health levothyroxine 25 mcg tablet 25 mcg PO DAILY thyroid 03/25/22 10/11/24 History losartan 50 mg tablet 50 mg PO BID bp #180 tabs 07/11/22 10/11/24 Rx cholecalciferol (vitamin D3) 50 50 mcg PO BID supplement 05/08/23 10/11/24 History mcg (2,000 unit) capsule mecobalamin (vitamin B12) 1,000 1,000 mcg PO DAILY supplement 05/08/23 10/11/24 History mcg chewable tablet denosumab 60 mg/mL subcutaneous 60 mg subcut [id number] bone health 08/20/23 Unknown History syringe (Prolia) rivaroxaban 15 mg tablet (Xarelto) 15 mg PO DINNER blood thinner #30 04/25/24 10/11/24 Rx tabs furosemide 20 mg tablet 20 mg PO QODAY PRN diuresis 06/14/24 Unknown History omeprazole 40 mg capsule,delayed 20 mg PO DAILY gerd 06/14/24 10/11/24 History release carvedilol 12.5 mg tablet 12.5 mg PO BID bp #180 tabs 08/17/24 10/11/24 Rx potassium chloride 10 mEq 20 meq PO DAILY 08/27/24 10/11/24 History capsule,extended release vibegron 75 mg tablet (Gemtesa) 75 mg PO DAILY 08/27/24 10/11/24 History hydralazine 50 mg tablet 50 mg PO TID #270 tabs 09/05/24 10/11/24 Rx Allergy/AdvReac Type Severity Reaction Status Date / Time amantadine Allergy Rash Verified 10/11/24 11:11 cephalexin Allergy Rash Verified 10/11/24 11:11 erythromycin base Allergy Rash Verified 10/11/24 11:11 hydrochlorothiazide Allergy Rash Verified 10/11/24 11:11 Iodinated Contrast Media Allergy Rash Verified 10/11/24 11:11 nitrofurantoin (From Allergy Vomiting Verified 10/11/24 11:11 Macrobid) amlodipine (From Norvasc) AdvReac Other Verified 10/11/24 11:11 Family History Mother CAD (coronary artery disease) Father CAD (coronary artery disease) Brother CAD (coronary artery disease) Sister CAD (coronary artery disease) Surgical History History of cardiac catheterization Hx of esophagogastroduodenoscopy History of colonoscopy History of hysteroscopy H/O hernia repair Tubal ligation status History of left heart catheterization (02/05/18) s/p left wrist ORIF Social History household members: none housing: apartment number of children: 4 Smoking Status: Former smoker quit date: 06/29/76 alcohol intake: never substance use type: does not use caffeine: Yes (Occasionally) ROS <YECENIA Muller - Last Filed: 10/11/24 14:00> ROS ED ROS Narrative Constitutional: Negative for fever, chills, weight loss, weakness Eyes: Negative for vision loss, vision change, double vision ENT: Negative for any sore throat, ear pain, congestion Cardiovascular: Negative for any palpitations. Positive chest pain, palpitations Respiratory: Negative for any sputum production, hemoptysis, dyspnea, dyspnea on exertion, orthopnea. Positive for cough Gastrointestinal: Negative for any abdominal pain, nausea, vomiting, diarrhea, constipation, blood in stool, blood in vomit : Negative for any urinary frequency, dysuria, retention, blood in urine Muscle skeletal: Negative for any neck pain, back pain Neurological: Negative for any headache, syncope, dizziness Skin: Negative for any rashes, itching, abrasions, lacerations Psychiatric: Negative for any depression, anxiety, stress, suicidal ideation, homicidal ideation Hematologic: Negative for any excessive bruising, easy bleeding EXAM <YECENIA Muller - Last Filed: 10/11/24 14:00> Physical Exam Narrative Exam Narrative: Vital signs reviewed. Patient states he feels generally well at this time. Heart rate is rapid HEET: Head normocephalic atraumatic, TMs clear bilaterally. Posterior pharynx is clear, moist mucous membranes. Nares clear bilaterally. Neck: Supple with no lymphadenopathy or tenderness. No signs of meningismus. Cardiac: tachycardic irregular rate, no murmurs gallops or rubs, equal peripheral pulses bilaterally. Respiratory: Patient did have some rhonchorous breath sounds in the right mid, lower lobe, diminished in bilateral bases, no chest tenderness. Abdomen: Soft, nontender, nondistended. No abdominal bruit or pulsatile masses. No hepatosplenomegaly Extremities: No peripheral edema, no signs of gross trauma or deformity. Active full range of motion of all extremities. Neuro: Cranial nerves II through XII intact, no focal neurological deficits. Skin: Clean dry and intact with no rash, purpura, petechiae, vesicles or pustules. Backs/flank: No CVA tenderness, no midline spinal tenderness, no deformity. Psych: Normal mood and affect. No SI, HI or acute psychosis. Const Vital Signs: 10/11/24 11:08 10/11/24 11:40 10/11/24 11:40 Temperature 97.7 F L Temperature Source Oral Pulse Rate 128 H Respiratory Rate 16 Respiratory Effort Normal Non-Labored Blood Pressure 94/58 L Blood Pressure Mean 70 Pulse Ox 97 Oxygen Delivery Method Room Air Room Air 10/11/24 12:07 10/11/24 13:00 10/11/24 14:00 Temperature Temperature Source Pulse Rate 108 H 115 H 91 Respiratory Rate 18 20 H 18 Respiratory Effort Blood Pressure 116/72 102/45 L 123/91 H Blood Pressure Mean 86 64 101 Pulse Ox 97 98 97 Oxygen Delivery Method Room Air Room Air Room Air Positive well nourished and well developed General Appearance ED: well developed <Dr. Vincent Chan MD - Last Filed: 10/11/24 15:44> Physical Exam Const Vital Signs: 10/11/24 11:08 10/11/24 11:40 10/11/24 11:40 Temperature 97.7 F L Temperature Source Oral Pulse Rate 128 H Respiratory Rate 16 Respiratory Effort Normal Non-Labored Blood Pressure 94/58 L Blood Pressure Mean 70 Pulse Ox 97 Oxygen Delivery Method Room Air Room Air 10/11/24 12:07 10/11/24 13:00 10/11/24 14:00 Temperature Temperature Source Pulse Rate 108 H 115 H 91 Respiratory Rate 18 20 H 18 Respiratory Effort Blood Pressure 116/72 102/45 L 123/91 H Blood Pressure Mean 86 64 101 Pulse Ox 97 98 97 Oxygen Delivery Method Room Air Room Air Room Air MDM <YECENIA Muller - Last Filed: 10/11/24 14:00> MDM Lab Data Labs: Laboratory Results - last 24 hr 10/11/24 10/11/24 10/11/24 11:15 11:30 11:55 WBC 6.8 RBC 3.31 L Hgb 10.7 L Hct 31.6 L MCV 95.5 MCH 32.3 H MCHC 33.9 RDW Std Deviation 45.2 H RDW Coeff of Broderick 13.1 Plt Count 199 MPV 10.2 Immature Gran % (Auto) 0.300 Neut % (Auto) 70.8 H Lymph % (Auto) 15.2 L Allen % (Auto) 9.6 Eos % (Auto) 3.7 Baso % (Auto) 0.4 Absolute Neuts (auto) 4.8 Absolute Lymphs (auto) 1.04 Nucleated RBC % 0 PT 20.7 H INR 1.7 Sodium 134 Potassium 4.1 Chloride 105 Carbon Dioxide 17.4 L Anion Gap 12 BUN 28 H Creatinine 1.70 H Estim Creat Clear Calc 20.52 L Est GFR (MDRD) Non-Af 29 L BUN/Creatinine Ratio 16.2 Glucose 117 H Calcium 8.9 Magnesium 1.7 Troponin T High Sens 82 H* TSH 2.150 Urine Color Yellow Urine Clarity Sl. Cloudy Urine pH 6.0 Ur Specific [place] 1.015 Urine Protein 30 H Urine Glucose (UA) Normal Urine Ketones Negative Urine Occult Blood Negative Urine Nitrite Negative Urine Bilirubin Negative Urine Urobilinogen Normal Ur Leukocyte Esterase Negative Urine RBC 0 SEEN Urine WBC 0 SEEN Ur Squamous Epith Cells 0-5 SEEN Urine Bacteria 0 SEEN Urine Mucus 0 SEEN Radiography Diagnostic Testing: Clinical Impression(s) from Imaging Studies Chest X-Ray 10/11/24 11:15 IMPRESSION: Borderline cardiomegaly. The lungs are clear. Reading Location: [facility]-IR-1 EKG Atrial fibrillation: Attestation: I personally reviewed and interpreted this EKG as follows: Interpretation: Atrial Fibrillation Comments: Atrial fibrillation, rate of 133 bpm, QRS duration 80 ms, no acute ST elevation, no acute infarct noted. Treatment and Re-Evaluation :: Differential diagnosis includes however is not limited to: A-fib with RVR, PE, electrode abnormality, hyperthyroidism, hypothyroidism, medication noncompliance, ACS, [place] Patient is tachycardic, patient is in no obvious distress. Presenting to the emergency department for complaints of chest pain, palpitations, fast heart rate. Patient does seem to be in atrial fibrillation is uncontrolled at a rate of 133. Patient received cardiac workup, thyroid as well as urinalysis, chest x-ray. Secondary to the patient's concern for cough, COVID-19 and influenza test we ordered. Chest x-ray will be ordered to ensure there is no pneumonia, fluid overload. All radiologic examinations were read, reviewed by the emergency department attending. From these reads, a plan of care will be put in place. Patient given IV fluids, as well as IV Cardizem. Patient will need to be reevaluated Patient CBC shows a stable anemia patient's PT is a 20.7, INR 1.7. Patient's chemistries show a creatinine of 1.7 this is baseline, patient is anywhere between 2.1-1.5. Patient's troponin initially was 82 a repeat will be drawn. Patient likely need to be admitted to hospital for secondary to chest pain, TSH is with in normal limits at 2.15. Patient responded well to the Cardizem, patient's heart rate is now between 105 and 110. Blood pressure still slightly soft. Patient will be admitted to hospital. Will reach out to cardiology. Patient be given digoxin as well as Cardizem drip. Patient will be admitted to PCU full <Dr. Vincent Chan MD - Last Filed: 10/11/24 15:44> [facility] MDM Narrative Medical decision making narrative: I have personally performed a face to face assessment of the patient and have reviewed the MOSHE Note. I performed a substantive portion of the visit including all aspects of the following. My welch findings include: History is In the middle of the night with burning chest discomfort, no palpitations, dyspnea, lightheadedness, syncope or near syncope, diaphoresis. Still has the burning. Has had a cough for about a week. Nonproductive, no fevers or chills. Also recently had a UTI 1 or 2 weeks ago, she was put on Macrobid that she did not tolerate after multiple days, was switched to Cipro, finished that then the symptoms returned with pressure and frequency, so then was put back on Macrobid and then switched again to Bactrim, which she only took some of it and the culture came back negative according to daughter. This was all at a different facility. She follows with our cardiology group. She thinks she is usually not in A-fib, and her records confirm a history of paroxysmal atrial fibrillation. Exam is rapid irregular pulse, keenly alert and oriented x 3. Lungs clear to auscultation throughout. No pedal edema. Good pulses distally all 4 extremities. Medical Decison Making chest x-ray 1 view my interpretation shows no pneumonia. She does not have a leukocytosis, consistent with this, especially with all the antibiotic she has had lately, I would not expect her to have a bacterial pneumonia. Her EKG appears to show rapid A-fib with no acute injury pattern. Obtained labs and troponin measurements while giving her a fluid bolus and attempt to bring HR down with Cardizem. Her initial troponin is elevated at 82. She does have renal insufficiency. She has not had any chest discomfort since 4 AM. We brought her rate down to the 110-120 range, currently asymptomatic, blood pressures are soft but 102/45 after Cardizem 15 mg. Given that she was having chest pain, elevated troponin could be early evidence of an NSTEMI or could simply be related to her having RVR for the past 10 hours or so. Plan is for admission. Cardiology on page, we are going to start on Cardizem drip and give her a bolus of digoxin and more IV fluids. Other additions or changes: [None] Lab Data Labs: Laboratory Results - last 24 hr 10/11/24 10/11/24 10/11/24 11:15 11:30 11:55 WBC 6.8 RBC 3.31 L Hgb 10.7 L Hct 31.6 L MCV 95.5 MCH 32.3 H MCHC 33.9 RDW Std Deviation 45.2 H RDW Coeff of Broderick 13.1 Plt Count 199 MPV 10.2 Immature Gran % (Auto) 0.300 Neut % (Auto) 70.8 H Lymph % (Auto) 15.2 L Allen % (Auto) 9.6 Eos % (Auto) 3.7 Baso % (Auto) 0.4 Absolute Neuts (auto) 4.8 Absolute Lymphs (auto) 1.04 Nucleated RBC % 0 PT 20.7 H INR 1.7 Sodium 134 Potassium 4.1 Chloride 105 Carbon Dioxide 17.4 L Anion Gap 12 BUN 28 H Creatinine 1.70 H Estim Creat Clear Calc 20.52 L Est GFR (MDRD) Non-Af 29 L BUN/Creatinine Ratio 16.2 Glucose 117 H Calcium 8.9 Magnesium 1.7 Troponin T High Sens 82 H* TSH 2.150 Urine Color Yellow Urine Clarity Sl. Cloudy Urine pH 6.0 Ur Specific [place] 1.015 Urine Protein 30 H Urine Glucose (UA) Normal Urine Ketones Negative Urine Occult Blood Negative Urine Nitrite Negative Urine Bilirubin Negative Urine Urobilinogen Normal Ur Leukocyte Esterase Negative Urine RBC 0 SEEN Urine WBC 0 SEEN Ur Squamous Epith Cells 0-5 SEEN Urine Bacteria 0 SEEN Urine Mucus 0 SEEN Radiography Diagnostic Testing: Clinical Impression(s) from Imaging Studies Chest X-Ray 10/11/24 11:15 IMPRESSION: Borderline cardiomegaly. The lungs are clear. Reading Location: [place] [id number] Management Discussion w/another healthcare provider: Hospitalist and Senior Master Scheduler (cardiology timmy - agrees w/ tx for now and will see on floor) <Dr. Vincent Chan MD - Last Filed: 10/11/24 15:44> Critical Care Time Critical Care Time: Yes Critical care time (excluding procedures): 30-74 minutes (34 min), Including time spent:, Discussing w/Patient &/or Family/Audio/Video Engineer, Discussing w/Consultants, Arranging Admission or Transfer and Performing Direct Patient Care at Bedside Discharge Plan Dx/Rx/DC Orders Clinical Impression: Chest pain, Paroxysmal atrial fibrillation, Chronic kidney disease, Elevated troponin, Atrial fibrillation with RVR Disposition Disposition: Acute Care Hospital [facility] Discharge Date/Time: 10/11/24 15:31
[2024-10-11 11:44] LABS: Absolute Lymphocyte Count 1.04 X10^3/uL (0.83-4.51); Absolute Neutrophil Count 4.8 X10^3/uL (2.0-7.7); Basophil# 0.03 X10^3/uL; Basophil% 0.4 % (0-1); Eosinophil# 0.25 X10^3/uL; Eosinophils% 3.7 % (0-5); Hematocrit 31.6 % (37-47); Hemoglobin 10.7 g/dL (12.0-15.0); Lymphocyte # 1.04 X10^3/ul (0.83-4.51); Lymphocyte % 15.2 % (19-41); Mean Corp Hgb Conc 33.9 g/dL (32-36); Mean Corpuscular Hgb 32.3 pg (27.0-32.0); Mean Corpuscular Volume 95.5 fL (81-99); Mean Platelet Vol. 10.2 fl (6.2-12.0); Monocyte# 0.66 X10^3/uL; Monocyte% 9.6 % (0-10); NRBC Flagged by Analyzer 0 % (0-5); Neutrophil # 4.84 X10^3/uL (2.7-7.7); Neutrophil % 70.8 % (47-70); Platelet Count 199 K/mm3 (150-450); RBC Distribution Width CV 13.1 % (11.6-14.6); RBC Distribution Width SD 45.2 fl (35.1-43.9); Red Blood Count 3.31 M/mm3 (4.2-5.4); White Blood Count 6.8 K/mm3 (4.4-11.0)
[2024-10-11] MEDS: 0.9% Normal Saline (1000mL) 1,000 ML 999 ML IV (11:52)
[2024-10-11] MEDS: dilTIAZem 25 MG/5 ML Vial 15 MG IV BOLUS (11:52)
[2024-10-11 11:55] LABS: International Normalized Ratio 1.7; Prothrombin Time (Protime)PT. 20.7 SECONDS (11.7-14.9)
[2024-10-11 12:02] LABS: Bacteria 0 SEEN /hpf (None Seen); Mucous, Urine 0 SEEN /hpf (<or=2+); Red Blood Cells-Urine 0 SEEN /hpf (0-5); White Blood Cells 0 SEEN /hpf (0-5)
[2024-10-11 12:11] LABS: Color, Urine Yellow (Yellow); Glucose, Dipstick Normal (Normal); Ketone-Dipstick Negative (Negative); Leukocyte Esterase-Dipstick Negative /ul (Negative); Nitrite-Dipstick Negative (Negative); Occult Blood-Urine Negative /ul (Negative); Protein-Dipstick 30 mg/dl (Negative); Specific Gravity, Urine 1.015 (1.002-1.030); Urine Bilirubin Dipstick Negative (Negative); Urine Clarity Sl. Cloudy (Clear); Urine Urobilinogen Normal (Normal)
[2024-10-11 12:20] LABS: Squamous Epithelial Cells - UA 0-5 SEEN /hpf (5-10)
[2024-10-11 12:34] LABS: Anion Gap 12 (5-15); BUN 28 mg/dL (4-19); BUN/Creat Ratio 16.2 RATIO (10-20); Calcium,Total 8.9 mg/dL (7.6-11.0); Carbon Dioxide 17.4 mmol/L (21.0-32.0); Chloride 105 mmol/L (98-108); EST Glomerular Filtration Rate 29 (>60); Estimated Creatinine Clearance 20.52 ml/min (50-250); Glucose 117 mg/dL (70-99); Potassium 4.1 mmol/L (3.3-5.1); Sodium Level 134 mmol/L (133-145)
[2024-10-11 12:36] LABS: Troponin T High Sensitivity 82 ng/L (<=14)
--- NOTE | 2024-10-11 12:38 | ED.RN ---
troponin 82.. aware
--- NOTE | 2024-10-11 13:28 | HP.PCM.HOS_ITS ---
HPI - General General Date of Admission: 10/11/24 Date of Service: 10/11/24 Chief Complaint: Palpitations/racing heart/chest pain/burning. HPI Narrative The patient is an 88 y/o F w/ PMHx: Former tobacco use, Hypothyroidism, GERD, CKD stage III unclear subtype per GFR trending although occasional appears stage IV, Chronic anemia, HLF, HTN, PAF who presents to the [facility] ED on 10/11/24 with onset of racing heart, palpitations, irregular heart rate sensation with chest burning which has been persistent on day of presentation recently reporting that she has had several recent issues with urinary tract infections with treatment with Macrobid, Cipro as well as Bactrim with the last intake of antibiotics 2 days previous with onset at 12 AM this morning the symptoms as noted with palpitation/racing heart and chest burning sensation lasting until 4 AM prompting ED evaluation. She notes she did stop the Bactrim the day prior as she was under the impression it may have been making her cough. Patient notes that the chest discomfort described as a burning sensation was midsternal with no radiation and rated it when it was occurring 8-9 out of 10 in severity but it did completely subside at 4 AM and has not returned since. She currently can still feel that her heart is not beating regularly and is faster than it should be. Workup in the ED included T97.7, heart 128, BP 94/58, respiratory rate 16, 97% on room air with most recent repeat vitals heart rate 115, BP 102/45, respiratory rate 20, 98% on room air, CBC with WBC 6.8, hemoglobin 10.7, MCV 95.5, platelet 199 without marked shift, coags with INR 1.7, PT 20.7, BMP with, Dex at 17.4, anion gap 12, BUN/creatinine 28/1.70, GFR 29, glucose 117, troponin 82, TSH 2.150, urinalysis not marked appearing, chest x-ray with borderline cardiomegaly with no acute cardiopulmonary findings, EKG atrial fibrillation with RVR. In the ED patient ministered 1 L normal saline and diltiazem 50 mg IV bolus x 1. ED physician noted to get paged and was awaiting to discuss case with Dr. Kingston. In the interim given patient persistent RVR additionally administered digoxin 250 mcg IV x 1 and placed on a low-dose Cardizem drip as well as ministered an additional 500 cc IV fluid normal saline. [facility] Medical History Hypothyroidism (acquired) Wears glasses Post-menopausal Thyroid disease Gastric reflux Former smoker History of edema History of echocardiogram History of stress test Cardiology follow-up encounter History of CHF (congestive heart failure) Paroxysmal atrial fibrillation Stage 3b chronic kidney disease (CKD) Elevated liver enzymes CKD (chronic kidney disease) stage 4, GFR 15-29 ml/min Stage 3b chronic kidney disease (CKD) Lymphedema of both lower extremities Bilateral lower extremity edema Dyspnea on exertion Pneumonia (03/19/22) Essential hypertension Atrial fibrillation, new onset Positive occult stool blood test Umbilical hernia Osteoporosis Hemorrhage of anus and rectum Glaucoma Acquired keratoderma Anemia Syncope Essential hypertension Sweating Palpitations Near syncope Hernia HLD (hyperlipidemia) Home Medications ?Medication ?Instructions ?Recorded ?Last Taken ?Type atorvastatin 20 mg tablet 20 mg PO QODAY Cholesterol 0 12/06/16 07/12/23 09:00 History latanoprost 0.005 % eye drops 1 drp ophthalmic (eye) B ID eye 12/06/16 10/10/24 History drops timolol maleate 0.5 % eye drops 1 drp RIGHT EYE BID ey e drops 12/06/16 10/10/24 History brimonidine 0.15 % eye drops 1 drp ophthalmic (eye) BI D eye 03/25/22 10/10/24 History health levothyroxine 25 mcg tablet 25 mcg PO DAILY thyroid 10/11/24 History losartan 50 mg tablet 50 mg PO BID bp #180 tabs 10/11/24 Rx cholecalciferol (vitamin D3) 50 50 mcg PO BID suppleme nt 05/08/23 10/11/24 History mcg (2,000 unit) capsule mecobalamin (vitamin B12) 1,000 1,000 mcg PO DAILY sup plement 05/08/23 10/11/24 History mcg chewable tablet denosumab 60 mg/mL subcutaneous 60 mg subcut [id number] bone health 08/20/23 Unknown History syringe (Prolia) rivaroxaban 15 mg tablet (Xarelto) 15 mg PO DINNER blo od thinner #30 04/25/24 10/11/24 Rx tabs furosemide 20 mg tablet 20 mg PO QODAY PRN diuresis 06/14/24 Unknown History omeprazole 40 mg capsule,delayed 20 mg PO DAILY gerd 1 08/15/23 10/11/24 History release carvedilol 12.5 mg tablet 12.5 mg PO BID bp #180 tabs 08/17/24 10/11/24 Rx potassium chloride 10 mEq 20 meq PO DAILY 08/27/24 History capsule,extended release vibegron 75 mg tablet (Gemtesa) 75 mg PO DAILY 5 10/11/24 History hydralazine 50 mg tablet 50 mg PO TID #270 tabs 09/0510/11/24 Rx Allergy/AdvReac Type Severity Reaction Status Date / Time amantadine Allergy Rash Verified 10/11/24 11:11 cephalexin Allergy Rash Verified 10/11/24 11:11 erythromycin base Allergy Rash Verified 10/11/24 11:11 hydrochlorothiazide Allergy Rash Verified 10/11/24 11:11 Iodinated Contrast Media Allergy Rash Verified 10/11/24 11:11 nitrofurantoin (From Allergy Vomiting Verified 10/11/24 11:11 Macrobid) amlodipine (From Norvasc) AdvReac Other Verified 10/11/24 11:11 Family History Mother CAD (coronary artery disease) Father CAD (coronary artery disease) Brother CAD (coronary artery disease) Sister CAD (coronary artery disease) Surgical History History of cardiac catheterization Hx of esophagogastroduodenoscopy History of colonoscopy History of hysteroscopy H/O hernia repair Tubal ligation status History of left heart catheterization (02/05/18) s/p left wrist ORIF Social History household members: none housing: apartment number of children: 4 Smoking Status: Former smoker quit date: 06/29/76 alcohol intake: never substance use type: does not use caffeine: Yes (Occasionally) ROS ROS Narrative Admission Review of Systems: CONSTITUTIONAL: No weight loss, fever, chills, weakness or fatigue. HEENT: Eyes: No visual loss, blurred vision, double vision or yellow sclerae. Ears, Nose, Throat: No hearing loss, sneezing, congestion, runny nose or sore throat. SKIN: No rash or itching, lesions, wounds. CARDIOVASCULAR: + Chest burning sensation, palpitation/racing heart. No orthopnea, syncopal events. RESPIRATORY: No shortness of breath, cough or sputum, wheezing, hemoptysis. GASTROINTESTINAL: No anorexia, nausea, vomiting or diarrhea, abdominal pain, melena, BRBPR. GENITOURINARY: No dysuria, frequency, urgency or retention. NEUROLOGICAL: No headache, dizziness, syncope, paralysis, ataxia, numbness or tingling in the extremities, focal weakness, change in bowel or bladder control, seizure. MUSCULOSKELETAL: + muscle, back pain, joint pain or stiffness. HEMATOLOGIC: + Chronic anemia, easy bleeding/bruising. LYMPHATICS: No enlarged nodes. No history of splenectomy. PSYCHIATRIC: No history of depression or anxiety. ENDOCRINOLOGIC: No reports of sweating, cold or heat intolerance. No polyuria or polydipsia. ALLERGIES: No history of asthma, hives, eczema or rhinitis. Vital Signs Vital Signs Vital Signs: 10/11/24 11:08 10/11/24 11:40 10/11/24 11:40 Temperature 97.7 F L Temperature Source Oral Pulse Rate 128 H Respiratory Rate 16 Respiratory Effort Normal Non-Labored Blood Pressure 94/58 L Blood Pressure Mean 70 Pulse Ox 97 Oxygen Delivery Method Room Air Room Air 10/11/24 12:07 10/11/24 13:00 Temperature Temperature Source Pulse Rate 108 H 115 H Respiratory Rate 18 20 H Respiratory Effort Blood Pressure 116/72 102/45 L Blood Pressure Mean 86 64 Pulse Ox 97 98 Oxygen Delivery Method Room Air Room Air Weight Weight: 141 lb 9.6 oz Body Mass Index (BMI) 25.9 Physical Exam Narrative Physical Examination: General: Awake, alert, oriented x 3 and cooperative, seated upright in the ED bed, denies any current chest discomfort/burning, notes she can still feel that her heart is racing fast. Skin: Normal color, normal turgor, no icterus, no cyanosis except occasional stage ecchymoses, abrasion. HEENT: AT/NC, EOMI, PERRLA, MMM, no carotid bruits or JVD noted. Lungs: Mildly diminished, greater bases, mildly increased respiratory rate but no distress, no rales, ronchi or wheezing. Heart: Irregular irregular; no gallop, rub audible. Abdomen: Soft, NTTP, ND, distant normal BS, n appreciated o HSM. Extremities: No cyanosis, no clubbing, no marked distal edema. Neurological: Patient awake, alert, oriented as noted, cognitive function intact; pupils equally reactive to light and accommodation, cranial nerves gross normal, moving all 4 extremities, no focal deficits, strength moderately globally decreased secondary to acute presentation complaints Psychiatric: Affect appears mildly flat, fatigued, no acute evidence of depressive or anxiety feelings. Results Lab / Micro Data 10/11/24 11:15 10/11/24 11:30 Labs: Laboratory Results - last 24 hr 10/11/24 11:15: WBC 6.8, RBC 3.31 L, Hgb 10.7 L, Hct 31.6 L, MCV 95.5, MCH 32.3 H, MCHC 33.9, RDW Std Deviation 45.2 H, RDW Coeff of [place]der[place] 13.1, Plt Count 199, MPV 10.2, Immature Gran % (Auto) 0.300, Neut % (Auto) 70.8 H, Lymph % (Auto) 15.2 L, [place] % (Auto) 9.6, Eos % (Auto) 3.7, Baso % (Auto) 0.4, Absolute Neuts (auto) 4.8, Absolute Lymphs (auto) 1.04, Nucleated RBC % 0 10/11/24 11:30: PT 20.7 H, INR 1.7, Sodium 134, Potassium 4.1, Chloride 105, C arbon Dioxide 17.4 L, Anion Gap 12, BUN 28 H, Creatinine 1.70 H, Estim Creat Clear Calc 20.52 L, Est GFR (MDRD) Non-Af 29 L, BUN/Creatinine Ratio 16.2, G lucose 117 H, Calcium 8.9, Troponin T High Sens 82 H*, TSH 2.150 10/11/24 11:55: Urine Color Yellow, Urine Clarity Sl. Cloudy, Urine pH 6.0, Ur Specific [place] 1.015, Urine Protein 30 H, Urine Glucose (UA) Normal, Urine Ketones Negative, Urine Occult Blood Negative, Urine Nitrite Negative, Urine Bilirubin Negative, Urine Urobilinogen Normal, Ur Leukocyte Esterase Negative, Urine RBC 0 SEEN, Urine WBC 0 SEEN, Ur Squamous Epith Cells 0-5 SEEN, Urine Bacteria 0 SEEN, Urine Mucus 0 SEEN Micro: Microbiology 10/11/24 11:55 Mucosa - Nose SARS-CoV-2, Influenza & RSV (PCR) - Final Imaging Radiology Impression Chest X-Ray 10/11/24 11:15 IMPRESSION: Borderline cardiomegaly. The lungs are clear. Reading Location: [facility] Assessment & Plan Assessment/Plan (1) Atrial fibrillation with RVR: (2) Elevated troponin: PLAN: Plan The patient is an 88 y/o F w/ PMHx: Former tobacco use, Hypothyroidism, GERD, CKD stage III unclear subtype per GFR trending although occasional appears stage IV, Chronic anemia, HLF, HTN, PAF who presents to the [facility] ED on 10/11/24 with onset of racing heart, palpitations, irregular heart rate sensation with chest burning which has been persistent on day of presentation recently reporting that she has had several recent issues with urinary tract infections with treatment with Macrobid, Cipro as well as Bactrim with the last intake of antibiotics 2 days previous with onset at 12 AM this morning the symptoms as noted with palpitation/racing heart and chest burning sensation lasting until 4 AM prompting ED evaluation. #1. Paroxsymal atrial fibrillation w/ RVR with associated indeterminate enzyme, unclear significance but suspected secondary to persistent RVR: EKG in ED w/ atrial fibrillation w/ RVR. Patient administered Cardizem bolus and 1 L normal saline bolus in ED. Will admit to PCU, maintain on telemetry, obtain cardiac enzyme serial set, obtain magnesium level, TSH normal level, most recent echocardiogram 07/13/2023 with EF 60 to 65%, normal LV systolic function, mild TR, mild MR not markedly changed from previous. Patient did improve with Cardizem bolus in the ED, eventually transition to Cardizem drip with an additional dose of 2050 NegGram IV x 1 digoxin administered. Will continue Cardizem drip, attempt also dose with Coreg overlap within the next 24 hours however will change per cardiology discretion has been consulted per ED and will continue, continue home Xarelto regimen. #2. Patient reported recent urinary tract infections: Urinalysis is unremarkable, unclear what organisms have been treated but from discussion she has been through several antibiotics including most recently Bactrim, will stop this is no obvious infectious concerns on urinalysis. If she continues to have symptoms may benefit from outpatient urology follow-up #3. HFpEF (presumed per most recent echo): Most recent echo as noted above with EF 60-65%, will judiciously hydrate as noted above, will continue as BP allows given prior sedation of the right agents as noted with Coreg, Lasix, hydralazine, losartan, continue statin therapy, continue Xarelto. #4. Chronic Kidney Disease Stage III per GFR trending unclear subtype although sometimes appears to be stage IV, uncertain: Admission BUN/Cr 28/1.70, GFR 29 however primarily seems to be more consistent with stage III from review of trending but occasionally stage IV, baseline renal function 1.3-1.8 however sometimes vacillates up to 2.1 but this may be acute, unclear repeat BMP in AM. #5. Chronic normocytic anemia: Admission hemoglobin 10.7, MCV 95.5, baseline hemoglobin primarily 9-10 range, stable, continue to trend. #6. Hypertension: Patient normally on losartan, Lasix, hydralazine, Coreg, will continue but may need to prioritize Cardizem drip if necessary, will dose with Coreg x 1 now and continue to monitor, as needed IV hydralazine. #7. Hyperlipidemia: Continue home statin regimen. AM FLP. #8. Hypothyroidism: Will continue patient home levothyroxine regimen, TSH per ED normal range. #9. Former tobacco use: Encourage continued tobacco cessation. #10. GERD: Will continue patient on PPI. #11. DVT prophylaxis: Continue patient home Xarelto regimen. #12. CODE status: Patient JENNIFER is her daughter Jessa who is present and living will is currently in place. Discussed CODE status at length including difference between FULL code, DNR-CCA and DNR-CC status. Following discussions about the differences in these status, requested eventually DNR CCA, with intubation with several examples given and did discuss that if she changed her mind certainly following her and her daughter discussing it further that we could adjust this CODE STATUS accordingly. Advanced Care Planning Face to Face Time: 16 minutes. Charges/Coding Visit Charges Inpatient E&M: 65226 Init Hosp L3 Procedures Hospitalists Procedures: [id number] Advncd Care Plan 30 Min
[2024-10-11] MEDS: Digoxin 250 MCG/ML Ampul IV (15:08)
[2024-10-11] MEDS: Diltiazem 125 MG in Dextrose 5%-Water (100mL Bag) 100 ML IV (15:09)
[2024-10-11] MEDS: 0.9% Normal Saline (500mL Bag) 500 ML 999 ML IV (15:13)
[2024-10-11 15:29] LABS: Magnesium 1.7 mg/dL (1.5-2.2)
[2024-10-11 15:45] LABS: Troponin T High Sens 2 HR 99 ng/L (<=14)
[2024-10-11] MEDS: Carvedilol 12.5 MG Tablet PO (17:06)
[2024-10-11] MEDS: Rivaroxaban 15 MG Tablet PO (17:08)
--- NOTE | 2024-10-11 17:19 | EKG12_ITS ---
Test Reason : AFIB Blood Pressure : */* mmHG Vent. Rate : 78 BPM Atrial Rate : * BPM P-R Int : * ms QRS Dur : 82 ms QT Int : 362 ms P-R-T Axes : * 30 -19 degrees QTcB Int : 412 ms Atrial fibrillation with premature ventricular or aberrantly conducted complexes Nonspecific ST abnormality Abnormal ECG When compared with ECG of 11-Oct-2024 11:20, MANUAL COMPARISON REQUIRED DATA IS UNCONFIRMED Confirmed by Jacob Kingston ([id number]), multimedia editor LUH ASHLEY ([id number]) on 10/13/2024 9:39:42 AM Referred By: ALLIE Confirmed By: Jacob Kingston
--- NOTE | 2024-10-11 17:32 | PCM.CONS.C ---
Assessment & Plan Assessment/Plan (1) Atrial fibrillation with RVR: PLAN: Patient's rate has been much better controlled and her blood pressure is increased to 156 systolic. Heart rate is now 70 on telemetry. She does remain in atrial fibrillation by twelve-lead EKG done this evening. Patient has been maintained on Xarelto for oral anticoagulation therapy. I would recommend at this point time that we attempt to chemical cardiovert her with amiodarone. I would recommend we discontinue the IV Cardizem and replace that with the IV amiodarone. If this is not successful in converting her in the next 24 to 48 hours we could consider direct-current cardioversion or alternatively leaving her in atrial fibrillation with rate control and oral anticoagulation therapy. Given the patient's history of GI bleeding we had offered her a Watchman device but she has decided not to do that as of the last office visit in April 2024. (2) Elevated troponin: PLAN: Patient's troponin is elevated most likely because of her tachycardia and her history of hypertension with presumed LV hypertrophy. I would recommend that we repeat an echocardiogram to reevaluate her LV function. I do not feel that proceeding to invasive evaluation with coronary angiography is indicated. She had a history of a normal heart cath 7 years ago when she was 81 years old she had normal coronary arteries. (3) Chronic kidney disease: QUALIFIERS: Chronic kidney disease stage: stage 4 (GFR 15-29) Qualified Code(s): N18.4 - Chronic kidney disease, stage 4 (severe) PLAN: Patient's GFR is 29 consistent with stage IV chronic kidney disease. (4) CHF (congestive heart failure): QUALIFIERS: Heart failure type: diastolic Heart failure chronicity: unspecified Qualified Code(s): I50.30 - Unspecified diastolic (congestive) heart failure PLAN: Patient has a history of heart failure with preserved ejection fraction. However her chest x-ray is completely clear but her lungs do have crackles in the bases bilaterally. She denies any lower extremity edema which she has had intermittently in the past. She is tolerating her Lasix without incident. (5) Essential hypertension: PLAN: Patient's blood pressure has been difficult to control in the past. She is on multiple medications at this point in time and on initial presentation was hypotensive. We have been utilizing carvedilol 12.5 mg twice daily along with hydralazine 50 mg 3 times daily she is also on losartan 50 mg twice daily she does receive Lasix and potassium replacement. At this point in time we should gingerly reintroduce her blood pressure medicines starting with the Coreg. PLAN: Plan 1. Will DC IV Cardizem and utilize amiodarone as a better option of potentially cardioverting her chemically. 2. Continue her Xarelto. 3. Will slowly restart her antihypertensive meds as blood pressure dictates. 4. Will check a 2D echocardiogram. HPI Consult Data Date of Consult: 10/11/24 HPI Narrative Reason for Consultation: Atrial fibs with RVR. HPI Narrative: BERNADETTE ELIZABETH, is a 88 F who presents with a sudden onset of a burning chest sensation that awoke her at approximately 12 AM this morning. This lasted until about 4 AM. She continued to feel some fluttering in her chest and her heart rate was documented in the 130 bpm range. She therefore presented to the emergency department for evaluation. The patient's blood pressure emerged part was initially in the 100 systolic range. She was given a bolus of IV Cardizem and started on IV Cardizem drip with some mild improvement in her rate. She also received a dose of Lanoxin 250 mcg. Upon my evaluation the patient in approximately 1700 hrs. the patient was feeling much better her heart rate was 70 bpm and a subsequent twelve-lead EKG showed that she remained in atrial fibrillation with a controlled ventricular response. The patient has been chronically on Xarelto which she is tolerated without any nuisance bleeding. The patient has recently been treated with 3 different rounds of antibiotics for UTIs. Patient also has a history of hypothyroidism on medical therapy followed by Dr. Terry Basilio. She also has a history of chronic kidney disease. Her hypertension has been difficult to control in the past requiring multiple medications. Patient does also have a history of remote GI bleeding. The patient's last echocardiogram showed normal LV function but that was over a year ago. I would recommend that we repeat a 2D echocardiogram given the fact that her troponins were elevated upon admission but this is most likely related to a combination of her history of hypertension with her tachyarrhythmia. The patient had a remote heart catheterization in 2017 which showed normal coronary arteries. The last echocardiogram June 2023 showed an EF estimated at 60-65% with normal systolic function mild TR mild MR no pericardial effusion. There was a history of pulmonary hypertension with pulmonary artery pressures of 60 mmHg documented at some point in time in the past. [facility] Medical History Hypothyroidism (acquired) Wears glasses Post-menopausal Thyroid disease Gastric reflux Former smoker History of edema History of echocardiogram History of stress test Cardiology follow-up encounter History of CHF (congestive heart failure) Paroxysmal atrial fibrillation Stage 3b chronic kidney disease (CKD) Elevated liver enzymes CKD (chronic kidney disease) stage 4, GFR 15-29 ml/min Stage 3b chronic kidney disease (CKD) Lymphedema of both lower extremities Bilateral lower extremity edema Dyspnea on exertion Pneumonia (03/19/22) Essential hypertension Atrial fibrillation, new onset Positive occult stool blood test Umbilical hernia Osteoporosis Hemorrhage of anus and rectum Glaucoma Acquired keratoderma Anemia Syncope Essential hypertension Sweating Palpitations Near syncope Hernia HLD (hyperlipidemia) Home Medications ?Medication ?Instructions ?Recorded ?Last Taken ?Type atorvastatin 20 mg tablet 20 mg PO QODAY Cholesterol 12/06/16 07/12/23 09:00 History latanoprost 0.005 % eye drops 1 drp ophthalmic (eye) BID eye 12/06/16 10/10/24 History drops timolol maleate 0.5 % eye drops 1 drp RIGHT EYE BID eye drops 12/06/16 10/10/24 History brimonidine 0.15 % eye drops 1 drp ophthalmic (eye) BID eye 03/25/22 10/10/24 History health levothyroxine 25 mcg tablet 25 mcg PO DAILY thyroid 03/25/22 10/11/24 History losartan 50 mg tablet 50 mg PO BID bp #180 tabs 07/11/22 10/11/24 Rx cholecalciferol (vitamin D3) 50 50 mcg PO BID supplement 05/08/23 10/11/24 History mcg (2,000 unit) capsule mecobalamin (vitamin B12) 1,000 1,000 mcg PO DAILY supplement 05/08/23 10/11/24 History mcg chewable tablet denosumab 60 mg/mL subcutaneous 60 mg subcut [id number] bone health 08/20/23 Unknown History syringe (Prolia) rivaroxaban 15 mg tablet (Xarelto) 15 mg PO DINNER blood thinner #30 04/25/24 10/11/24 Rx tabs furosemide 20 mg tablet 20 mg PO QODAY PRN diuresis 06/14/24 Unknown History omeprazole 40 mg capsule,delayed 20 mg PO DAILY gerd 06/14/24 10/11/24 History release carvedilol 12.5 mg tablet 12.5 mg PO BID bp #180 tabs 08/17/24 10/11/24 Rx potassium chloride 10 mEq 20 meq PO DAILY 08/27/24 10/11/24 History capsule,extended release vibegron 75 mg tablet (Gemtesa) 75 mg PO DAILY 08/27/24 10/11/24 History hydralazine 50 mg tablet 50 mg PO TID #270 tabs 09/05/24 10/11/24 Rx Allergy/AdvReac Type Severity Reaction Status Date / Time amantadine Allergy Rash Verified 10/11/24 11:11 cephalexin Allergy Rash Verified 10/11/24 11:11 erythromycin base Allergy Rash Verified 10/11/24 11:11 hydrochlorothiazide Allergy Rash Verified 10/11/24 11:11 Iodinated Contrast Media Allergy Rash Verified 10/11/24 11:11 nitrofurantoin (From Allergy Vomiting Verified 10/11/24 11:11 Macrobid) amlodipine (From Norvasc) AdvReac Other Verified 10/11/24 11:11 Family History Mother CAD (coronary artery disease) Father CAD (coronary artery disease) Brother CAD (coronary artery disease) Sister CAD (coronary artery disease) Surgical History History of cardiac catheterization Hx of esophagogastroduodenoscopy History of colonoscopy History of hysteroscopy H/O hernia repair Tubal ligation status History of left heart catheterization (02/05/18) s/p left wrist ORIF Social History household members: none housing: apartment number of children: 4 Smoking Status: Former smoker quit date: 06/29/76 alcohol intake: never substance use type: does not use caffeine: Yes (Occasionally) ROS Constitutional Constitutional: Reports as per HPI Eyes Eyes: Reports systems reviewed and no addt'l complaints, except as documented ENT HEENT: Reports systems reviewed and no addt'l complaints, except as documented Cardiovascular Cardiovascular: Reports as per HPI Respiratory/Chest Respiratory/Chest: Reports as per HPI Gastrointestinal Gastrointestinal: Reports systems reviewed and no addt'l complaints, except as documented Genitourinary Genitourinary: Reports as per HPI Musculoskeletal Musculoskeletal: Reports systems reviewed and no addt'l complaints, except as documented Integumentary Integumentary: Reports systems reviewed and no addt'l complaints, except as documented Neurologic Neurologic: Reports systems reviewed and no addt'l complaints, except as documented Psychiatric Psychiatric: Reports systems reviewed and no addt'l complaints, except as documented Endocrine Endocrinology: Reports as per HPI Hematologic/Lymphatic Hematologic/Lymphatic: Reports as per HPI Allergic/Immunologic Allergic/Immunologic: Reports systems reviewed and no addt'l complaints, except as documented Physical Exam Const alert and oriented x3 HEENT normocephalic Eyes EOMs intact bilaterally Neck no carotid bruits Neck Narrative: Noted JVD at the clavicle at 90 degrees. Chest inspection of chest normal Resp normal respiratory effort Auscultation: crackles bilateral base Cardio Rate: regular rate Rhythm: abnormal rhythm irregularly irregular Heart Sounds: S1 normal and S2 normal; Negative for click, gallop or murmur GI soft to palpation Extremity no pedal edema Neuro Neuro Narrative: Alert and oriented x 3 Psych mental status grossly normal Risk Stratification Risk Stratification Applicable: Yes Age >/= 65: Yes >/= 3 CAD Risk Factors (HTN, HLD, DM, family hx of CAD, or current smoker): Yes Aspirin Use in the Past 7 Days: No Severe Angina (>/= episodes in 24 hours): No EKG ST Changes >/= 0.5mm: No Positive Cardiac Marker: Yes LANA Risk Stratification Score: 3 LANA % Risk: 13% Risk Charges/Coding Visit Charges Inpatient E&M: 86838 Init Hosp L3 Objective Data Vital Signs: Vital Signs Temp Pulse Resp BP Pulse Ox O2 Del Method 98.1 F 94 21 H 151/85 H 96 Room Air 10/11/24 15:57 10/11/24 16:15 10/11/24 16:15 10/11/24 16:15 10/11/24 16:15 10/11/24 16:15 Oxygen Delivery Method Room Air Weight: 138 lb 14.4 oz Body Mass Index (BMI) 25.4 Intake & Output: Intake and Output for Last 24 Hours 10/09/24 10/10/24 10/11/24 23:59 23:59 23:59 Intake Total 1007.0 / 1007.0 Balance 1007.0 / 1007.0 Lab / Micro Data Attestation: I reviewed the patient's lab results. 10/11/24 11:15 10/11/24 11:30 Labs: Laboratory Results - last 24 hr 10/11/24 11:15: WBC 6.8, RBC 3.31 L, Hgb 10.7 L, Hct 31.6 L, MCV 95.5, MCH 32.3 H, MCHC 33.9, RDW Std Deviation 45.2 H, RDW Coeff of Broderick 13.1, Plt Count 199, MPV 10.2, Immature Gran % (Auto) 0.300, Neut % (Auto) 70.8 H, Lymph % (Auto) 15.2 L, Cherry % (Auto) 9.6, Eos % (Auto) 3.7, Baso % (Auto) 0.4, Absolute Neuts (auto) 4.8, Absolute Lymphs (auto) 1.04, Nucleated RBC % 0 10/11/24 11:30: PT 20.7 H, INR 1.7, Sodium 134, Potassium 4.1, Chloride 105, Carbon Dioxide 17.4 L, Anion Gap 12, BUN 28 H, Creatinine 1.70 H, Estim Creat Clear Calc 20.52 L, Est GFR (MDRD) Non-Af 29 L, BUN/Creatinine Ratio 16.2, Glucose 117 H, Calcium 8.9, Magnesium 1.7, Troponin T High Sens 82 H*, TSH 2.150 10/11/24 11:55: Urine Color Yellow, Urine Clarity Sl. Cloudy, Urine pH 6.0, Ur Specific [place] 1.015, Urine Protein 30 H, Urine Glucose (UA) Normal, Urine Ketones Negative, Urine Occult Blood Negative, Urine Nitrite Negative, Urine Bilirubin Negative, Urine Urobilinogen Normal, Ur Leukocyte Esterase Negative, Urine RBC 0 SEEN, Urine WBC 0 SEEN, Ur Squamous Epith Cells 0-5 SEEN, Urine Bacteria 0 SEEN, Urine Mucus 0 SEEN 10/11/24 15:00: Troponin T Hi Sens 2 Hr 99 H* Micro: Microbiology 10/11/24 11:55 Mucosa - Nose SARS-CoV-2, Influenza & RSV (PCR) - Final Rhythm Strip Rhythm Strip: A-fib Rate: 70 Cardiology Labs/Tests 10/11/24 11:15: WBC 6.8, RBC 3.31 L, Hgb 10.7 L, Hct 31.6 L, MCV 95.5, MCH 32.3 H, MCHC 33.9, Plt Count 199, MPV 10.2, Immature Gran % (Auto) 0.300, Neut % (Auto) 70.8 H, Lymph % (Auto) 15.2 L, Cherry % (Auto) 9.6, Eos % (Auto) 3.7, Baso % (Auto) 0.4, Absolute Neuts (auto) 4.8, Nucleated RBC % 0 10/11/24 11:30: PT 20.7 H, INR 1.7, Sodium 134, Potassium 4.1, Chloride 105, Carbon Dioxide 17.4 L, Anion Gap 12, BUN 28 H, Creatinine 1.70 H, Est GFR (MDRD) Non-Af 29 L, BUN/Creatinine Ratio 16.2, Glucose 117 H, Calcium 8.9, Magnesium 1.7 10/11/24 11:55: Urine Color Yellow, Urine Clarity Sl. Cloudy, Urine pH 6.0, Ur Specific [place] 1.015, Urine Protein 30 H, Urine Glucose (UA) Normal, Urine Ketones Negative, Urine Occult Blood Negative, Urine Nitrite Negative, Urine Bilirubin Negative, Urine Urobilinogen Normal, Ur Leukocyte Esterase Negative, Urine RBC 0 SEEN, Urine WBC 0 SEEN Rhythm: EKG: ECHO: Stress Test: Cardiac Cath: PCI: CT Surgery: Holter monitor: EPS: PPM: CXR: Chest CT Scan: Radiography Diagnostic Testing: Radiology Impression Chest X-Ray 10/11/24 11:15 IMPRESSION: Borderline cardiomegaly. The lungs are clear. Reading Location: [place] [id number]
--- NOTE | 2024-10-11 17:56 | ECHOD_ITS ---
Reason For Study Reason For Study: ATRIAL FIBRILLATION/FLUTTER Procedure This was a 2D Doppler, Color Flow transthoracic echocardiogram. Exam performed portable in patient room. Left Ventricle Normal LV size. Left ventricular systolic function is normal. The left ventricular ejection fraction is 60 %. No regional wall motion abnormalities noted. Right Ventricle Normal RV size. Normal systolic function. Atria Normal left atrium. Normal right atrium. Mitral Valve Normal mitral valve. Tricuspid Valve Normal tricuspid valve. Moderate (2+) tricuspid valve insufficiency. Pulmonary artery systolic pressure is 64 mmHg. Moderate pulmonary hypertension. Aortic Valve Trisinus/trileaflet aortic valve. Pulmonic Valve Normal pulmonic valve. Great Vessels Normal aortic root. The pulmonary artery is normal size. Normal inferior vena cava. Pericardium/Pleural Small (<1.0 cm) pericardial effusion. MMode/2D Measurements & Calculations LVIDd: 4.0 cm IVSd: 1.0 cm Ao root diam: 3.3 cm LVIDs: 2.9 cm LVPWd: 0.99 cm FS: 25.4 % LAV(MOD-bp): 50.8 ml LVAd ap4: 17.0 cm2 SV(MOD-sp4): 23.5 ml LAV(MOD-bp) Indexed: 31.0 ml/m2 LVLd ap4: 5.8 cm SI(MOD-sp4): 14.4 ml/m2 LAV(MOD-sp2): 46.4 ml EDV(MOD-sp4): 40.5 ml LAV(MOD-sp4): 52.6 ml EDV(sp4-el): 42.0 ml LVAs ap4: 10.1 cm2 LVLs ap4: 5.2 cm ESV(MOD-sp4): 17.0 ml ESV(sp4-el): 16.5 ml EF(MOD-sp4): 58.1 % EF(sp4-el): 60.7 % SV(sp4-el): 25.5 ml LA A4 area: 18.9 cm2 LA dimension(2D): 4.4 cm RA A4 area: 12.9 cm2 TAPSE: 1.8 cm Doppler Measurements & Calculations MV E max antonio: 127.0 cm/sec Lat Peak E' Antonio: 8.3 cm/sec Med Peak E' Antonio: 9.1 cm/sec E/E' lat: 15.3 E/E' med: 13.9 Ao V2 max: 99.6 cm/sec LV V1 max: 88.6 cm/sec PA V2 max: 104.4 cm/sec Ao max P.0 mmHg LV V1 max P.1 mmHg PA V2 mean: 71.4 cm/sec Ao V2 mean: 70.9 cm/sec LV V1 mean P.9 mmHg Ao mean P.3 mmHg LV V1 mean: 65.3 cm/sec Ao V2 VTI: 19.8 cm LV V1 VTI: 19.6 cm AV (velocity ratio): 0.99 TR max antonio: 382.3 cm/sec TR max P.5 mmHg ECHO/Echo Complete Interpretation Summary Normal LV size. Left ventricular systolic function is normal. The left ventricular ejection fraction is 60 %. Small (<1.0 cm) pericardial effusion. Pulmonary artery systolic pressure is 64 mmHg. Moderate pulmonary hypertension. Ordering Physician: Jacob Kingston Referring Physician: Anay Barnard Performed By: Denise Ron RDCS, RVT
[2024-10-11] MEDS: Amiodarone 150 MG in Dextrose 5%-Water (100mL Bag) 100 ML 600 MG IV BOLUS (18:49)
[2024-10-11] MEDS: Amiodarone 360 MG in Dextrose 5% Viaflo Bag 192.8 ML 33.3 MG CONT INF (19:07)
[2024-10-11] MEDS: Latanoprost 0.005% 1 Bottle 1 DRP OPHTHALMIC (21:38)
[2024-10-11] MEDS: BRIMONIDINE 0.15% 5 ML Bottle 1 DRP OPHTHALMIC (21:41)
[2024-10-11] MEDS: Timolol 0.5% 5ML OPTH.BTL 1 DRP RIGHT EYE (21:42)
[2024-10-11] MEDS: hydrALAZINE 50 MG Tablet PO (21:43)
[2024-10-11] MEDS: Losartan Potassium 50 MG Tablet PO (21:44)
[2024-10-12] VITALS (23 sets, daily range): BP systolic 98–138; BP diastolic 43–94; PULSE 61–96; RESP 18–22; TEMP 36.5–36.8; O2SAT 95–99; BMI 25.4
[2024-10-12] MEDS: Amiodarone 360 MG in Dextrose 5% Viaflo Bag 192.8 ML 16.7 MG CONT INF ×2 (00:30→12:53)
[2024-10-12] MEDS: Levothyroxine 25 MCG TABLET PO (06:14)
[2024-10-12] MEDS: hydrALAZINE 50 MG Tablet PO ×2 (06:14→22:01)
[2024-10-12 06:40] LABS: Absolute Lymphocyte Count 1.24 X10^3/uL (0.83-4.51); Absolute Neutrophil Count 2.5 X10^3/uL (2.0-7.7); Basophil# 0.02 X10^3/uL; Basophil% 0.4 % (0-1); Eosinophil# 0.35 X10^3/uL; Eosinophils% 7.5 % (0-5); Hematocrit 27.6 % (37-47); Hemoglobin 9.1 g/dL (12.0-15.0); Lymphocyte # 1.24 X10^3/ul (0.83-4.51); Lymphocyte % 26.7 % (19-41); Mean Corpuscular Hgb 31.6 pg (27.0-32.0); Mean Corpuscular Volume 95.8 fL (81-99); Mean Platelet Vol. 10.3 fl (6.2-12.0); Monocyte# 0.51 X10^3/uL; NRBC Flagged by Analyzer 0 % (0-5); Neutrophil # 2.51 X10^3/uL (2.7-7.7); Neutrophil % 54.2 % (47-70); Platelet Count 181 K/mm3 (150-450); RBC Distribution Width CV 13.1 % (11.6-14.6); Red Blood Count 2.88 M/mm3 (4.2-5.4); White Blood Count 4.6 K/mm3 (4.4-11.0)
--- NOTE | 2024-10-12 08:11 | PCM.PN.CARD ---
Subjective Subjective Patient reports she feels much better today. She has been out of the bed to the bathroom without restrictions. Denies any lightheadedness dizziness. Heart rate is well-controlled on the IV amiodarone and her Coreg. It is uncertain how long the patient has been in this atrial fibrillation by history. It does appear that her rapid ventricular response was the etiology of her symptoms that awoke her from sleep. Once her rate was controlled her symptoms all resolved. Blood pressure is well-controlled since yesterday. Hemoglobin is dropped from 10.7-9.1 since admission. 2D echo is pending this morning. Objective Data Vital Signs: Vital Signs Temp Pulse Resp BP Pulse Ox O2 Del Method 97.9 F 80 18 131/62 H 98 Room Air 10/12/24 06:00 10/12/24 06:14 10/12/24 06:00 10/12/24 06:14 10/12/24 06:00 10/12/24 06:00 Oxygen Delivery Method Room Air Weight: 139 lb 5.314 oz Body Mass Index (BMI) 25.4 Intake & Output: Intake and Output for Last 24 Hours 10/10/24 10/11/24 10/12/24 23:59 23:59 23:59 Intake Total 1993.2147. 345.15 / 345.15 Output Total 0 / 0 Balance 2147. 345.15 / 345.15 Lab / Micro Data Attestation: I reviewed the patient's lab results. 10/12/24 05:34 10/11/24 11:30 Labs: Laboratory Results - last 24 hr 10/11/24 11:15: WBC 6.8, RBC 3.31 L, Hgb 10.7 L, Hct 31.6 L, MCV 95.5, MCH 32.3 H, MCHC 33.9, RDW Std Deviation 45.2 H, RDW Coeff of Broderick 13.1, Plt Count 199, MPV 10.2, Immature Gran % (Auto) 0.300, Neut % (Auto) 70.8 H, Lymph % (Auto) 15.2 L, [place] % (Auto) 9.6, Eos % (Auto) 3.7, Baso % (Auto) 0.4, Absolute Neuts (auto) 4.8, Absolute Lymphs (auto) 1.04, Nucleated RBC % 0 10/11/24 11:30: PT 20.7 H, INR 1.7, Sodium 134, Potassium 4.1, Chloride 105, Carbon Dioxide 17.4 L, Anion Gap 12, BUN 28 H, Creatinine 1.70 H, Estim Creat Clear Calc 20.52 L, Est GFR (MDRD) Non-Af 29 L, BUN/Creatinine Ratio 16.2, Glucose 117 H, Calcium 8.9, Magnesium 1.7, Troponin T High Sens 82 H*, TSH 2.150 10/11/24 11:55: Urine Color Yellow, Urine Clarity Sl. Cloudy, Urine pH 6.0, Ur Specific [place] 1.015, Urine Protein 30 H, Urine Glucose (UA) Normal, Urine Ketones Negative, Urine Occult Blood Negative, Urine Nitrite Negative, Urine Bilirubin Negative, Urine Urobilinogen Normal, Ur Leukocyte Esterase Negative, Urine RBC 0 SEEN, Urine WBC 0 SEEN, Ur Squamous Epith Cells 0-5 SEEN, Urine Bacteria 0 SEEN, Urine Mucus 0 SEEN 10/11/24 15:00: Troponin T Hi Sens 2 Hr 99 H* 10/12/24 05:34: WBC 4.6, RBC 2.88 L, Hgb 9.1 L, Hct 27.6 L, MCV 95.8, MCH 31.6, MCHC 33.0, RDW Std Deviation 46.0 H, RDW Coeff of Broderick 13.1, Plt Count 181, MPV 10.3, Immature Gran % (Auto) 0.200, Neut % (Auto) 54.2, Lymph % (Auto) 26.7, [place] % (Auto) 11.0 H, Eos % (Auto) 7.5 H, Baso % (Auto) 0.4, Absolute Neuts (auto) 2.5, Absolute Lymphs (auto) 1.24, Nucleated RBC % 0 Micro: Microbiology 10/11/24 11:55 Mucosa - Nose SARS-CoV-2, Influenza & RSV (PCR) - Final Rhythm Strip Rhythm Strip: A-fib Rate: 75 Cardiology Labs/Tests 10/11/24 11:15: WBC 6.8, RBC 3.31 L, Hgb 10.7 L, Hct 31.6 L, MCV 95.5, MCH 32.3 H, MCHC 33.9, Plt Count 199, MPV 10.2, Immature Gran % (Auto) 0.300, Neut % (Auto) 70.8 H, Lymph % (Auto) 15.2 L, [place] % (Auto) 9.6, Eos % (Auto) 3.7, Baso % (Auto) 0.4, Absolute Neuts (auto) 4.8, Nucleated RBC % 0 10/11/24 11:30: PT 20.7 H, INR 1.7, Sodium 134, Potassium 4.1, Chloride 105, Carbon Dioxide 17.4 L, Anion Gap 12, BUN 28 H, Creatinine 1.70 H, Est GFR (MDRD) Non-Af 29 L, BUN/Creatinine Ratio 16.2, Glucose 117 H, Calcium 8.9, Magnesium 1.7 10/11/24 11:55: Urine Color Yellow, Urine Clarity Sl. Cloudy, Urine pH 6.0, Ur Specific [place] 1.015, Urine Protein 30 H, Urine Glucose (UA) Normal, Urine Ketones Negative, Urine Occult Blood Negative, Urine Nitrite Negative, Urine Bilirubin Negative, Urine Urobilinogen Normal, Ur Leukocyte Esterase Negative, Urine RBC 0 SEEN, Urine WBC 0 SEEN 10/12/24 05:34: WBC 4.6, RBC 2.88 L, Hgb 9.1 L, Hct 27.6 L, MCV 95.8, MCH 31.6, MCHC 33.0, Plt Count 181, MPV 10.3, Immature Gran % (Auto) 0.200, Neut % (Auto) 54.2, Lymph % (Auto) 26.7, [place] % (Auto) 11.0 H, Eos % (Auto) 7.5 H, Baso % (Auto) 0.4, Absolute Neuts (auto) 2.5, Nucleated RBC % 0 Rhythm: EKG: ECHO: Stress Test: Cardiac Cath: PCI: CT Surgery: Holter monitor: EPS: PPM: CXR: Chest CT Scan: Radiography Diagnostic Testing: Radiology Impression Chest X-Ray 10/11/24 11:15 IMPRESSION: Borderline cardiomegaly. The lungs are clear. Reading Location: [facility] Physical Exam Const alert and oriented x3 HEENT normocephalic Neck Neck Narrative: Noted JVD at the level of the clavicle at 90 degrees. Chest inspection of chest normal Resp normal respiratory effort Auscultation: crackles left base and diminished lung sounds right lower Cardio Rate: regular rate Rhythm: abnormal rhythm irregularly irregular Heart Sounds: S1 normal and S2 normal; Negative for click, gallop or murmur Extremity no pedal edema Neuro Neuro Narrative: Alert and oriented x 3 Psych mental status grossly normal Assessment & Plan Assessment/Plan (1) Atrial fibrillation with RVR: PLAN: Patient remains in atrial fibrillation. She has a long history of paroxysmal atrial fibrillation. An EKG from August 26, 2024 the patient was in sinus bradycardia. I would recommend that we give her another 24 hours on IV amiodarone. If she does not convert to sinus rhythm I would recommend we continue with rate control and oral anticoagulation therapy. We do need to monitor her CBC as it did go down about 1 g since admission. (2) Elevated troponin: PLAN: Patient has a 2D echocardiogram pending this morning. Provided her echo does not show any new wall motion abnormalities no further evaluation would be indicated at this time. It is highly likely that the elevated troponins were related to her rapid ventricular rate with the atrial fibrillation on presentation. (3) Essential hypertension: PLAN: Blood pressure is well-controlled on her current medical therapy. PLAN: Plan 1. Complete this bag of amiodarone IV. 2. If patient does not convert to sinus rhythm we will DC antiarrhythmic therapy and continue with rate control. 3. Following discontinuation of the IV amiodarone we will monitor the patient's heart rate and should be able to be discharged to her home environment in the next 24 hours. 4. Obtain results of 2D echocardiogram and further recommendations pending the evaluation of her echo. Charges/Coding Visit Charges Inpatient E&M: 83253 Subs Hosp L3
[2024-10-12] MEDS: BENZOCAINE/MENTHOL 1 LOZENGE MUCOUS MEM ×3 (09:57→20:20)
[2024-10-12] MEDS: Carvedilol 12.5 MG Tablet PO ×2 (09:57→16:01)
[2024-10-12 10:01] LABS: Cholesterol 146 mg/dL (<=200); High Density Lipoprotein 48 mg/dL; Low Density Lipoprotein Calc. 81 mg/dL; Triglycerides 85 mg/dL; Very Low Density Lipoprotein 17 mg/dL (5-40); cholesterol:hdl ratio screen 3.02
[2024-10-12 10:02] LABS: ALB/GLOB Ratio 1.3 RATIO (0.9-2.4); AST(SGOT) 19 U/L (<=31); Alanine Aminotransfer ALT/SGPT 13 U/L (<=34); Albumin, Serum 3.4 g/dL (3.4-4.8); Alkaline Phosphatase 38 U/L (35-104); Anion Gap 10 (5-15); BUN 27 mg/dL (4-19); BUN/Creat Ratio 16.6 RATIO (10-20); Calcium,Total 8.4 mg/dL (7.6-11.0); Carbon Dioxide 18.5 mmol/L (21.0-32.0); Chloride 108 mmol/L (98-108); Creatinine, Serum 1.63 mg/dL (0.70-1.20); EST Glomerular Filtration Rate 30 (>60); Estimated Creatinine Clearance 21.24 ml/min (50-250); Globulin 2.6 g/dL (2.2-4.2); Glucose 103 mg/dL (70-99); Potassium 3.7 mmol/L (3.3-5.1); Protein, Total 5.9 g/dL (5.9-8.4); Sodium Level 136 mmol/L (133-145); Total Bilirubin 0.34 mg/dL (0.00-1.30)
--- NOTE | 2024-10-12 10:10 | CASEMGMT ---
RN CM ux developer designer CM to room to meet with patient for initial transition planning/care coordination assessment. RN DENA introduced self and role at [facility]. Patient resting in bed, alert and oriented. Daughter and son-in-law @ at bedside and pt is agreeable to them being present during assessment. Patient willing to participate in assessment and is able to answer all questions appropriately. Care providers, pharmacy, and demographics verified. Strata: 3 PCP: Dr Barnard Specialists: Dr Sewell, manager customs; Dr Collins, GI; DELMAR, composite mechanic; Dr Adler, urologist; Dr Basilio, deburr technician. Preferred Pharmacy: [facility] Insurance: [employer] Prescription Benefit: yes Living Will/HPOA: Pt states she has completed LW and HCPOA, stating dtr, Jessa Ragland, is her primary agent. LNOK: daughterJessa Living Arrangements: Patient lives alone in a single story home with one step to enter the home. Patient states she is independent at home w/ADL's and IADL's. Transportation: self, daughter DME: Patient has grab bars at home. She also has a cane and walker available, but does not use. SNF/HHC: No hx of SNF. Has had [facility] in the past (2023) Pt wishes to return home and states has no concerns with going home at time of discharge.? ?CM?to follow for any discharge planning/needs.? Pt voices no concerns/needs at this time.? Advised pt to ask for?CM?if any questions/concerns/needs arise.? Voices understanding. Plan: Home Sandra SCHULTE RN, CM
[2024-10-12] MEDS: Timolol 0.5% 5ML OPTH.BTL 1 DRP RIGHT EYE ×2 (10:46→22:01)
[2024-10-12] MEDS: Latanoprost 0.005% 1 Bottle 1 DRP OPHTHALMIC ×2 (10:46→22:02)
[2024-10-12] MEDS: Losartan Potassium 50 MG Tablet PO ×2 (10:47→22:01)
[2024-10-12] MEDS: BRIMONIDINE 0.15% 5 ML Bottle 1 DRP OPHTHALMIC ×2 (10:47→22:02)
[2024-10-12] MEDS: Atorvastatin Calcium 20 MG Tablet PO (10:48)
[2024-10-12] MEDS: Potassium Chloride Oral Tablet 20 MEQ PO (10:48)
[2024-10-12] MEDS: Vibegron 75 MG TABLET PO (10:48)
[2024-10-12] MEDS: Pantoprazole Sodium 20 MG Tablet PO (10:49)
--- NOTE | 2024-10-12 11:29 | PN.HOSP_ITS ---
Subjective Subjective Doing well, no issues overnight. Heart rate has slowed and her blood pressure has improved however she remains in A-fib Objective Data Objective Data Vital Signs: Vital Signs Temp Pulse Resp BP Pulse Ox O2 Del Method 97.7 F L 80 20 H 126/70 H 98 Room Air 10/12/24 10:40 10/12/24 11:00 10/12/24 11:00 10/12/24 11:00 10/12/24 11:00 10/12/24 11:00 Oxygen Delivery Method Room Air Weight: 139 lb 5.314 oz Body Mass Index (BMI) 25.4 Intake & Output: Intake and Output for Last 24 Hours 10/11/24 10/12/24 10/13/24 03:59 03:59 03:59 Intake Total 2227.42 / 2244.12 233.6 / 233.6 Output Total 0 / 0 Balance 2227.42 / 2244.12 233.6 / 233.6 Lab / Micro Data 10/12/24 05:34 10/12/24 05:34 Labs: Laboratory Results - last 24 hr 10/11/24 11:15: WBC 6.8, RBC 3.31 L, Hgb 10.7 L, Hct 31.6 L, MCV 95.5, MCH 32.3 H, MCHC 33.9, RDW Std Deviation 45.2 H, RDW Coeff of Broderick 13.1, Plt Count 199, MPV 10.2, Immature Gran % (Auto) 0.300, Neut % (Auto) 70.8 H, Lymph % (Auto) 15.2 L, [place] % (Auto) 9.6, Eos % (Auto) 3.7, Baso % (Auto) 0.4, Absolute Neuts (auto) 4.8, Absolute Lymphs (auto) 1.04, Nucleated RBC % 0 10/11/24 11:30: PT 20.7 H, INR 1.7, Sodium 134, Potassium 4.1, Chloride 105, C arbon Dioxide 17.4 L, Anion Gap 12, BUN 28 H, Creatinine 1.70 H, Estim Creat Clear Calc 20.52 L, Est GFR (MDRD) Non-Af 29 L, BUN/Creatinine Ratio 16.2, G lucose 117 H, Calcium 8.9, Magnesium 1.7, Troponin T High Sens 82 H*, TSH 2.150 10/11/24 11:55: Urine Color Yellow, Urine Clarity Sl. Cloudy, Urine pH 6.0, Ur Specific Deputy 1.015, Urine Protein 30 H, Urine Glucose (UA) Normal, Urine Ketones Negative, Urine Occult Blood Negative, Urine Nitrite Negative, Urine Bilirubin Negative, Urine Urobilinogen Normal, Ur Leukocyte Esterase Negative, Urine RBC 0 SEEN, Urine WBC 0 SEEN, Ur Squamous Epith Cells 0-5 SEEN, Urine Bacteria 0 SEEN, Urine Mucus 0 SEEN 10/11/24 15:00: Troponin T Hi Sens 2 Hr 99 H* 10/12/24 05:34: WBC 4.6, RBC 2.88 L, Hgb 9.1 L, Hct 27.6 L, MCV 95.8, MCH 31.6, MCHC 33.0, RDW Std Deviation 46.0 H, RDW Coeff of [place]der[place] 13.1, Plt Count 181, MPV 10.3, Immature Gran % (Auto) 0.200, Neut % (Auto) 54.2, Lymph % (Auto) 26.7, [place] % (Auto) 11.0 H, Eos % (Auto) 7.5 H, Baso % (Auto) 0.4, Absolute Neuts (auto) 2.5, Absolute Lymphs (auto) 1.24, Nucleated RBC % 0, Sodium 136, Potassium 3.7, Chloride 108, Carbon Dioxide 18.5 L, Anion Gap 10, BUN 27 H, C reatinine 1.63 H, Estim Creat Clear Calc 21.24 L, Est GFR (MDRD) Non-Af 30 L, BUN/Creatinine Ratio 16.6, Glucose 103 H, Calcium 8.4, Total Bilirubin 0.34, AST 19, ALT 13, Alkaline Phosphatase 38, Total Protein 5.9, Albumin 3.4, Globulin 2.6, Albumin/Globulin Ratio 1.3, Triglycerides 85, Cholesterol 146, LDL Cholesterol, Calc 81, VLDL Cholesterol 17, HDL Cholesterol 48, Cholesterol/HDL Ratio 3.02 Micro: Microbiology 10/11/24 11:55 Mucosa - Nose SARS-CoV-2, Influenza & RSV (PCR) - Final Radiography Diagnostic Testing: Radiology Impression Chest X-Ray 10/11/24 11:15 IMPRESSION: Borderline cardiomegaly. The lungs are clear. Reading Location: [place] [id number] Rhythm Strip Rhythm Strip: A-fib Rate: 75 Physical Exam Narrative General: Alert, Oriented x3, Cooperative, No apparent distress HEENT: Atraumatic, PERRLA, EOMI, Normocephalic Oral: Moist Mucosa Neck: Supple, No JVD Lungs: Diminished, Normal air movement, No rhonchi, No wheeze, No rales Cardiovascular: Regular rate, A-fib, Normal S1, Normal S2, No murmurs Abdomen: Soft, Non Tender, Non-Distended, No Hepato-splenomegaly Extremities: No edema, Capillary Refill Less than 3 Seconds Skin: No rashes, No breakdown Musculoskeletal: No Tenderness to Palpation of Joints or Extremities Neurological: No focal neurological deficits, Motor Exam 5/5 strength throughout, Sensory exam intact to light touch and pain Psych/Mental Status: Normal Affect, Appropriate Assessment & Plan Assessment/Plan (1) Atrial fibrillation with RVR: (2) Elevated troponin: PLAN: Plan 1. A-fib with RVR with elevated troponin due to demand ischemia/essential HTN/HLD/chronic diastolic CHF ? Appreciate cardiology's assistance ? Her RVR resolved so she was transition from Cardizem to amiodarone since she was still in A-fib to see if we can chemically convert her ? She has been maintained on anticoagulation with Xarelto ? Echo is pending ? Last echo was in June 2023 with an EF of 60 to 65% ? Will continue with her Coreg at 12.5 mg p.o. twice daily, as well as losartan ? Continue with her Lasix every other day as needed ? Continue with Lipitor 2. Anemia of chronic disease secondary to CKD 3 ? Hemoglobin appears to be close to baseline ? Renal function also appears to be close to baseline ? Will monitor and make adjustments as necessary 3. Hypothyroidism ? Stable ? Continue with Synthroid ? TSH was stable at 2.15 4. GERD ? Stable ? Continue with PPI DVT: Xarelto Charges/Coding Visit Charges Inpatient E&M: 05835 Subs Hosp L2
[2024-10-12] MEDS: Rivaroxaban 15 MG Tablet PO (16:01)
[2024-10-12] MEDS: 0.9% Saline Lock 10 ML Syringe IV (20:20)
[2024-10-13 02:46] VITALS: BMI 26.6
[2024-10-13 05:00] VITALS: BP 134/71; PULSE 69; RESP 18; TEMP 36.7; O2SAT 98
[2024-10-13 05:05] VITALS: BP 134/71; PULSE 69
[2024-10-13] MEDS: Levothyroxine 25 MCG TABLET PO (05:05)
[2024-10-13] MEDS: hydrALAZINE 50 MG Tablet PO (05:05)
[2024-10-13 06:56] LABS: Absolute Lymphocyte Count 1.58 X10^3/uL (0.83-4.51); Absolute Neutrophil Count 2.2 X10^3/uL (2.0-7.7); Basophil# 0.05 X10^3/uL; Basophil% 1.1 % (0-1); Eosinophil# 0.36 X10^3/uL; Eosinophils% 7.7 % (0-5); Hemoglobin 10.2 g/dL (12.0-15.0); Lymphocyte # 1.58 X10^3/ul (0.83-4.51); Lymphocyte % 33.8 % (19-41); Mean Corp Hgb Conc 32.9 g/dL (32-36); Mean Corpuscular Volume 97.2 fL (81-99); Mean Platelet Vol. 10.2 fl (6.2-12.0); Monocyte# 0.47 X10^3/uL; NRBC Flagged by Analyzer 0 % (0-5); Neutrophil # 2.21 X10^3/uL (2.7-7.7); Neutrophil % 47.2 % (47-70); Platelet Count 192 K/mm3 (150-450); RBC Distribution Width CV 13.1 % (11.6-14.6); RBC Distribution Width SD 46.5 fl (35.1-43.9); Red Blood Count 3.19 M/mm3 (4.2-5.4); White Blood Count 4.7 K/mm3 (4.4-11.0)
[2024-10-13 07:34] LABS: Anion Gap 9 (5-15); BUN 24 mg/dL (4-19); BUN/Creat Ratio 16.6 RATIO (10-20); Calcium,Total 8.6 mg/dL (7.6-11.0); Carbon Dioxide 17.9 mmol/L (21.0-32.0); Chloride 111 mmol/L (98-108); Creatinine, Serum 1.43 mg/dL (0.70-1.20); EST Glomerular Filtration Rate 35 (>60); Glucose 96 mg/dL (70-99); Sodium Level 138 mmol/L (133-145)
[2024-10-13 07:48] VITALS: O2SAT 96
[2024-10-13 07:58] VITALS: BP 149/73; PULSE 80; RESP 16; TEMP 36.6; O2SAT 98
--- NOTE | 2024-10-13 08:16 | PN.CARD_ITS ---
Subjective Subjective The patient reports that she is doing much better. She is up in the room with minimal assistance. She denies any shortness of breath or dyspnea on exertion with activities in the room. She denies any dizziness. Telemetry shows that her atrial fibrillation ventricular response is well- controlled at 70 to 95 bpm. Blood pressure is stable in the 130/70 range. She is back on her home medical therapy with good rate control and blood pressure management. Objective Data Vital Signs: Vital Signs Temp Pulse Resp BP Pulse Ox O2 Del Method 97.9 F 80 16 149/73 H 98 Room Air 10/13/24 07:58 10/13/24 07:58 10/13/24 07:58 10/13/24 07:58 10/13/24 07:58 10/13/24 07:58 Oxygen Delivery Method Room Air Weight: 145 lb 8.081 oz Body Mass Index (BMI) 26.6 Intake & Output: Intake and Output for Last 24 Hours 10/11/24 10/12/24 10/13/24 23:59 23:59 23:59 Intake Total 1993.2147. 1726.83 / 1726.83 0 / 0 Output Total 0 / 0 Balance 1726.83 / 1726.83 0 / 0 Lab / Micro Data Attestation: I reviewed the patient's lab results. 10/13/24 06:18 10/13/24 06:18 Labs: Laboratory Results - last 24 hr 10/12/24 05:34: Sodium 136, Potassium 3.7, Chloride 108, Carbon Dioxide 18.5 L, Anion Gap 10, BUN 27 H, Creatinine 1.63 H, Estim Creat Clear Calc 21.24 L, Est GFR (MDRD) Non-Af 30 L, BUN/Creatinine Ratio 16.6, Glucose 103 H, Calcium 8.4, Total Bilirubin 0.34, AST 19, ALT 13, Alkaline Phosphatase 38, Total Protein 5.9, Albumin 3.4, Globulin 2.6, Albumin/Globulin Ratio 1.3, Triglycerides 85, Cholesterol 146, LDL Cholesterol, Calc 81, VLDL Cholesterol 17, HDL Cholesterol 48, Cholesterol/HDL Ratio 3.02 10/13/24 06:18: WBC 4.7, RBC 3.19 L, Hgb 10.2 L, Hct 31.0 L, MCV 97.2, MCH 32.0, MCHC 32.9, RDW Std Deviation 46.5 H, RDW Coeff of Broderick 13.1, Plt Count 192, MPV 10.2, Immature Gran % (Auto) 0.200, Neut % (Auto) 47.2, Lymph % (Auto) 33.8, [place] % (Auto) 10.0, Eos % (Auto) 7.7 H, Baso % (Auto) 1.1 H, Absolute Neuts (auto) 2.2, Absolute Lymphs (auto) 1.58, Nucleated RBC % 0, Sodium 138, Potassium 4.0, Chloride 111 H, Carbon Dioxide 17.9 L, Anion Gap 9, BUN 24 H, C reatinine 1.43 H, Estim Creat Clear Calc 24.70 L, Est GFR (MDRD) Non-Af 35 L, BUN/Creatinine Ratio 16.6, Glucose 96, Calcium 8.6 Rhythm Strip Rhythm Strip: A-fib Rate: 80 Cardiology Labs/Tests 10/12/24 05:34: Sodium 136, Potassium 3.7, Chloride 108, Carbon Dioxide 18.5 L, Anion Gap 10, BUN 27 H, Creatinine 1.63 H, Est GFR (MDRD) Non-Af 30 L, BUN/Creatinine Ratio 16.6, Glucose 103 H, Calcium 8.4, Total Bilirubin 0.34, Triglycerides 85, Cholesterol 146, VLDL Cholesterol 17, HDL Cholesterol 48, Cholesterol/HDL Ratio 3.02 10/13/24 06:18: WBC 4.7, RBC 3.19 L, Hgb 10.2 L, Hct 31.0 L, MCV 97.2, MCH 32.0, MCHC 32.9, Plt Count 192, MPV 10.2, Immature Gran % (Auto) 0.200, Neut % (Auto) 47.2, Lymph % (Auto) 33.8, [place] % (Auto) 10.0, Eos % (Auto) 7.7 H, Baso % (Auto) 1.1 H, Absolute Neuts (auto) 2.2, Nucleated RBC % 0, Sodium 138, Potassium 4.0, Chloride 111 H, Carbon Dioxide 17.9 L, Anion Gap 9, BUN 24 H, Creatinine 1.43 H, Est GFR (MDRD) Non-Af 35 L, BUN/Creatinine Ratio 16.6, Glucose 96, Calcium 8.6 Rhythm: EKG: ECHO: Stress Test: Cardiac Cath: PCI: CT Surgery: Holter monitor: EPS: PPM: CXR: Chest CT Scan: Radiography Diagnostic Testing: Radiology Impression Echocardiogram 10/11/24 17:56 Interpretation Summary Normal LV size. Left ventricular systolic function is normal. The left ventricular ejection fraction is 60 %. Small (<1.0 cm) pericardial effusion. Pulmonary artery systolic pressure is 64 mmHg. Moderate pulmonary hypertension. Ordering Physician: Jacob Kingston Referring Physician: Anay Barnard Performed By: Denise Ron RDCS, RVT Physical Exam Const alert and oriented x3 HEENT normocephalic Eyes EOMs intact bilaterally Neck Neck Narrative: Noted JVD at the clavicle at 90 degrees unchanged during the admission. Chest inspection of chest normal Resp normal respiratory effort Auscultation: crackles bilateral base Cardio Rate: regular rate Rhythm: abnormal rhythm regularly irregular Heart Sounds: S1 normal and S2 normal; Negative for click, gallop or murmur Extremity General Extremity: edema bilateral lower extremity Details: mild Neuro Neuro Narrative: Alert and oriented x 3 Psych mental status grossly normal Assessment & Plan Assessment/Plan (1) Paroxysmal atrial fibrillation: PLAN: Patient's patient's atrial fibrillation did not convert with IV amiodarone loading and infusion. Her heart rate is now controlled. She is tolerating oral anticoagulation therapy without nuisance bleeding her hemoglobin is actually up to 10.2 today. The patient carries a history of episodic paroxysmal atrial fibrillation. She is asymptomatic at this point in time and I would recommend that we continue with rate control and oral anticoagulation. She should continue on her current carvedilol at 12.5 mg twice daily and her oral anticoagulation. The patient should follow-up in the [facility] office in the next 2 weeks with one of the advanced practitioners. (2) Elevated troponin: PLAN: Patient's troponins were minimally elevated and consistent with her rapid ventricular response when she was admitted. Echocardiogram showed normal LV function with a EF of 60% no evidence of wall motion abnormalities. RV was normal atria were normal in size. She does have 2+ tricuspid regurgitation and moderate pulmonary artery hypertension with PA pressures of 64. Given the patient's lower extremity edema I would recommend that she take her Lasix 20 mg daily for the next 2 weeks and be reevaluated in the [facility] office with a BMP at that visit. She was instructed that should she become lightheaded or dizzy she should hold the Lasix and call the [facility]. (3) Essential hypertension: PLAN: Historically the patient's blood pressure has been difficult to control but it appears to be well-controlled on her current medical regimen in her home environment. She is to continue her same home meds. PLAN: Plan 1. Patient should be discharged to home on her current cardiovascular medical regimen. 2. The patient should take her Lasix 20 mg daily instead of as needed for the next 2 weeks. 3. The patient should follow-up in the [facility] office with one of our advanced practitioners in 2 weeks and have a basic metabolic panel evaluated at that time. 4. From a cardiovascular standpoint the patient could be discharged to home later today. Charges/Coding Visit Charges Inpatient E&M: 10853 Subs Hosp L2
[2024-10-13] MEDS: Carvedilol 12.5 MG Tablet PO (09:20)
[2024-10-13] MEDS: Losartan Potassium 50 MG Tablet PO (09:21)
[2024-10-13] MEDS: Vibegron 75 MG TABLET PO (09:21)
[2024-10-13] MEDS: BRIMONIDINE 0.15% 5 ML Bottle 1 DRP OPHTHALMIC (09:21)
[2024-10-13] MEDS: Pantoprazole Sodium 20 MG Tablet PO (09:21)
[2024-10-13] MEDS: Potassium Chloride Oral Tablet 20 MEQ PO (09:21)
[2024-10-13] MEDS: Timolol 0.5% 5ML OPTH.BTL 1 DRP RIGHT EYE (09:22)
[2024-10-13] MEDS: Latanoprost 0.005% 1 Bottle 1 DRP OPHTHALMIC (09:22)
[2024-10-13] MEDS: Furosemide 20 MG Tablet PO (10:28)
--- NOTE | 2024-10-13 10:34 | PCM.DC ---
Discharge Instructions Diet Discharge Diet: Low fat / Low cholesterol DC O2, CPAP, BIPAP needs Home O2 Discharge instructions: No Dressing / Incision Discharge Activity: Return to Normal Activity Dressing / Incision Call your doctor if you observe: Fever of 101 or Higher, Shortness of breath, Dizziness, Fainting spells, Swelling in the ankles, Chest pain and Increased palpitations (irregular heartbeat) Follow Up Care Test Results: Test results from this visit will be discussed in further detail at your follow-up appointment, if applicable. Discharge Plan Admission Admit Date/Time: 10/11/24 14:08 Attending Provider: Nirav Cain Primary Care Provider: Anay Barnard Consulting Providers: Jacob Kingston; Inocencia Long Discharge Orders/Prescriptions Prescriptions: Continued levothyroxine 25 mcg tablet 25 mcg PO DAILY brimonidine 0.15 % drops 1 drp ophthalmic (eye) BID Rx Instructions: right eye omeprazole 40 mg capsule,delayed release(DR/EC) 20 mg PO DAILY Prolia 60 mg/mL syringe 60 mg subcut [id number] Patient Comments: STARTS END UP SEPTEMBER. mecobalamin (vitamin B12) 1,000 mcg tablet,chewable 1,000 mcg PO DAILY cholecalciferol (vitamin D3) 50 mcg (2,000 unit) capsule 50 mcg PO BID latanoprost 1 DROP bottle 1 drp ophthalmic (eye) BID Patient Comments: EYE DROP Rx Instructions: BOTH EYES atorvastatin 20 MG tablet 20 mg PO QODAY Patient Comments: CHOLESTEROL timolol maleate 1 DROP drops 1 drp RIGHT EYE BID Patient Comments: EYE DROPS potassium chloride 10 mEq capsule, extended release 20 meq PO DAILY Rx Instructions: take 2 capsules by mouth once daily Gemtesa 75 mg tablet 75 mg PO DAILY losartan 50 mg tablet 50 mg PO BID Qty: 180 4RF Xarelto 15 mg tablet 15 mg PO DINNER Qty: 30 11RF Rx Instructions: must administer with evening meal carvedilol 12.5 mg tablet 12.5 mg PO BID Qty: 180 3RF Rx Instructions: must administer with a meal/food hydralazine 50 mg tablet 50 mg PO TID Qty: 270 3RF Changed furosemide 20 mg tablet 20 mg PO DAILY 30 Days Qty: 0 0RF Referrals / Follow Up: Anay Barnard MD [Primary Care Provider] - Within 1 Week Hernandez,Faustina M PA, PA [Med Staff - Adv Practice Prof] - Within 2 Weeks Disposition Disposition (needs filled in before D/C Order can be placed): Home, Self Care
--- NOTE | 2024-10-13 13:26 | CHAPLAIN ---
Type of Pastoral Visit ___ Initial Visit ___ Follow-up Visit ___ On-call Visit ___ General Patient Visit ___ Spiritual Assessment ___ Family Conference ___ Bereavement ___ Rapid Response ___ Code Blue ___ Other (describe below) Pastoral Care Referral From ___ Patient ___ Family ___ Nurse ___ Physician ___ Band Saw Operator ___ Automatic Riveting Machine Operator ___ Other (describe below) Sacrament/Intervention ___ Active listening ___ Anointing ___ Restorationist ___ Bereavement ___ Communion ___ Krystal exploration ___ ___ Life review ___ Prayer ___ Reconciliation ___ Sacrament of Sick ___ Supportive presence ___ Wedding ___ Other (describe below) Pastoral Comments patient was discharged before she could be seen by this metal sprayer
--- NOTE | 2024-10-13 15:21 | DS.PCM_ITS ---
Providers Date of Admission: 10/11/24 Primary Care Physician: Dr. Anay Barnard MD Consultations 10/11/24 16:05 Consult: Cardiology Routine Consulting Provider: Jacob Kingston Reason for Consult: PAF RVR EMERGENT Consult: No MD Notified: Yes Date Notified: 10/11/24 Time Notified: 16:05 Method of Notification: ED Physician Initiated Reason For Visit: PAF RVR, ELEVATED TROP Diagnosis Discharge Diagnosis (1) Paroxysmal atrial fibrillation: Status: Acute Code(s): I48.0 - Paroxysmal atrial fibrillation (2) Elevated troponin: Status: Acute Code(s): R79.89 - Other specified abnormal findings of blood chemistry (3) Essential hypertension: Status: Chronic Code(s): I10 - Essential (primary) hypertension Medications at Discharge Home Medications atorvastatin 20 mg tablet 20 mg PO QODAY Cholesterol 12/06/16 latanoprost 0.005 % eye drops 1 drp ophthalmic (eye) BID eye drops 12/06/16 timolol maleate 0.5 % eye drops 1 drp RIGHT EYE BID eye drops 12/06/16 brimonidine 0.15 % eye drops 1 drp ophthalmic (eye) BID eye health 03/25/22 levothyroxine 25 mcg tablet 25 mcg PO DAILY thyroid 03/25/22 losartan 50 mg tablet 50 mg PO BID bp #180 tabs 07/11/22 cholecalciferol (vitamin D3) 50 mcg (2,000 unit) capsule 50 mcg PO BID supplement 05/08/23 mecobalamin (vitamin B12) 1,000 mcg chewable tablet 1,000 mcg PO DAILY supplement 05/08/23 denosumab 60 mg/mL subcutaneous syringe (Prolia) 60 mg subcut [id number] bone health 08/20/23 rivaroxaban 15 mg tablet (Xarelto) 15 mg PO DINNER blood thinner #30 tabs 04/25/24 omeprazole 40 mg capsule,delayed release 20 mg PO DAILY gerd 06/14/24 carvedilol 12.5 mg tablet 12.5 mg PO BID bp #180 tabs 08/17/24 potassium chloride 10 mEq capsule,extended release 20 meq PO DAILY 08/27/24 vibegron 75 mg tablet (Gemtesa) 75 mg PO DAILY bladder 08/27/24 hydralazine 50 mg tablet 50 mg PO TID blood pressure #270 tabs 09/05/24 furosemide 20 mg tablet 20 mg PO DAILY 30 days #0 tabs 10/13/24 Hospital Course Operations None Procedures 2-D Echocardiogram Summary of Care Provided Minutes Spent on Discharge: 35 Hospital Course: Per HPI: The patient is an 88 y/o F w/ PMHx: Former tobacco use, Hypothyroidism, GERD, CKD stage III unclear subtype per GFR trending although occasional appears stage IV, Chronic anemia, HLF, HTN, PAF who presents to the [facility] ED on 10/11/24 with onset of racing heart, palpitations, irregular heart rate sensation with chest burning which has been persistent on day of presentation recently reporting that she has had several recent issues with urinary tract infections with treatment with Macrobid, Cipro as well as Bactrim with the last intake of antibiotics 2 days previous with onset at 12 AM this morning the symptoms as noted with palpitation/racing heart and chest burning sensation lasting until 4 AM prompting ED evaluation. She notes she did stop the Bactrim the day prior as she was under the impression it may have been making her cough. Patient notes that the chest discomfort described as a burning sensation was midsternal with no radiation and rated it when it was occurring 8-9 out of 10 in severity but it did completely subside at 4 AM and has not returned since. She currently can still feel that her heart is not beating regularly and is faster than it should be. Workup in the ED included T97.7, heart 128, BP 94/58, respiratory rate 16, 97% on room air with most recent repeat vitals heart rate 115, BP 102/45, respiratory rate 20, 98% on room air, CBC with WBC 6.8, hemoglobin 10.7, MCV 95.5, platelet 199 without marked shift, coags with INR 1.7, PT 20.7, BMP with, Dex at 17.4, anion gap 12, BUN/creatinine 28/1.70, GFR 29, glucose 117, troponin 82, TSH 2.150, urinalysis not marked appearing, chest x-ray with borderline cardiomegaly with no acute cardiopulmonary findings, EKG atrial fibrillation with RVR. In the ED patient ministered 1 L normal saline and diltiazem 50 mg IV bolus x 1. ED physician noted to get paged and was awaiting to discuss case with Dr. Kingston. In the interim given patient persistent RVR additionally administered digoxin 250 mcg IV x 1 and placed on a low-dose Cardizem drip as well as ministered an additional 500 cc IV fluid normal saline. Hospital Course: 1. A-fib with RVR with elevated troponin due to demand ischemia/essential HTN/HLD/chronic diastolic CHF?88-year-old female presented to the hospital with increasing shortness of breath as well as palpitations. She found to have a slightly elevated troponin which was likely due to demand given her tachycardia. She was placed on Cardizem and then transition to amiodarone in an attempt to chemically convert her since she is on chronic anticoagulation. Her heart rate resolved but she still remained in the atrial fibrillation rhythm and cardiology felt that she would be okay for discharge home on her current Coreg dosage of 12.5 mg p.o. twice daily. Given her echo findings of an EF of 60% with a PASP of 64 mmHg, we did elect to change her Lasix from 20 mg p.o. every other day as needed, to 20 mg p.o. daily. I do recommend outpatient follow-up with her PCP as well as cardiology in 2 weeks to monitor her renal function. I discussed with her the plan for discharge today she expressed understanding the risks and benefits of going home and would like to go home today. 2. Anemia of chronic disease, chronic kidney disease stage III, hypothyroidism, GERD are all chronic medical conditions which complicate her care. Her home medications were continued where appropriate Physical Exam Narrative General: Alert, Oriented x3, Cooperative, No apparent distress HEENT: Atraumatic, PERRLA, EOMI, Normocephalic Oral: Moist Mucosa Neck: Supple, No JVD Lungs: Diminished, Normal air movement, No rhonchi, No wheeze, No rales Cardiovascular: Regular rate, A-fib, Normal S1, Normal S2, No murmurs Abdomen: Soft, Non Tender, Non-Distended, No Hepato-splenomegaly Extremities: Trace edema, Capillary Refill Less than 3 Seconds Skin: No rashes, No breakdown Musculoskeletal: No Tenderness to Palpation of Joints or Extremities Neurological: No focal neurological deficits, Motor Exam 5/5 strength throughout, Sensory exam intact to light touch and pain Psych/Mental Status: Normal Affect, Appropriate Weight / BMI Weight Weight: 145 lb 8.081 oz Body Mass Index (BMI) 26.6 ABG / Lab / Microbiology Data 10/13/24 06:18 10/13/24 06:18 Laboratory: Laboratory Results - last 24 hr 10/13/24 06:18: WBC 4.7, RBC 3.19 L, Hgb 10.2 L, Hct 31.0 L, MCV 97.2, MCH 32.0, MCHC 32.9, RDW Std Deviation 46.5 H, RDW Coeff of Broderick 13.1, Plt Count 192, MPV 10.2, Immature Gran % (Auto) 0.200, Neut % (Auto) 47.2, Lymph % (Auto) 33.8, [place] % (Auto) 10.0, Eos % (Auto) 7.7 H, Baso % (Auto) 1.1 H, Absolute Neuts (auto) 2.2, Absolute Lymphs (auto) 1.58, Nucleated RBC % 0, Sodium 138, Potassium 4.0, Chloride 111 H, Carbon Dioxide 17.9 L, Anion Gap 9, BUN 24 H, C reatinine 1.43 H, Estim Creat Clear Calc 24.70 L, Est GFR (MDRD) Non-Af 35 L, BUN/Creatinine Ratio 16.6, Glucose 96, Calcium 8.6 Microbiology: Microbiology 10/11/24 11:55 Mucosa - Nose SARS-CoV-2, Influenza & RSV (PCR) - Final D/C Instructions Discharge Diet: Low fat / Low cholesterol Call your doctor if you observe: Fever of 101 or Higher, Shortness of breath, Dizziness, Fainting spells, Swelling in the ankles, Chest pain and Increased palpitations (irregular heartbeat) DC O2, CPAP, BIPAP Needs Home O2 Discharge instructions: No Meaningful Use Info Meaningful Use Meaningful Use Diagnoses (Choose all that apply): None applicable Ischemic Stroke Statin Dosing Therapy Reference: STATIN DOSE THERAPY REFERENCE: * Patients > 75 years receive moderate or high dose statin therapy. * Patients 75 years or YOUNGER should receive HIGH intensity statin dose unless contraindicated. You will be required to document reason for non-treatment if statin daily dose does not meet guidelines. HIGH DOSE STATIN THERAPY DAILY Atorvastatin > than or = to 40 mg Rosuvastatin > than or = to 20 mg Amlodipine + Atorvastatin > than or = to 2.5/40 mg Ezetimibe + Simvastatin 10/80 mg Simvastatin 80mg Discharge Plan Admission Admit Date/Time: 10/11/24 14:08 Attending Provider: Nirav Cain Primary Care Provider: Anay Barnard Consulting Providers: Jacob Kingston; Inocencia Long Discharge Orders/Prescriptions Prescriptions: Continued levothyroxine 25 mcg tablet 25 mcg PO DAILY brimonidine 0.15 % drops 1 drp ophthalmic (eye) BID Rx Instructions: right eye omeprazole 40 mg capsule,delayed release(DR/EC) 20 mg PO DAILY Prolia 60 mg/mL syringe 60 mg subcut [id number] Patient Comments: STARTS END UP SEPTEMBER. mecobalamin (vitamin B12) 1,000 mcg tablet,chewable 1,000 mcg PO DAILY cholecalciferol (vitamin D3) 50 mcg (2,000 unit) capsule 50 mcg PO BID latanoprost 1 DROP bottle 1 drp ophthalmic (eye) BID Patient Comments: EYE DROP Rx Instructions: BOTH EYES atorvastatin 20 MG tablet 20 mg PO QODAY Patient Comments: CHOLESTEROL timolol maleate 1 DROP drops 1 drp RIGHT EYE BID Patient Comments: EYE DROPS potassium chloride 10 mEq capsule, extended release 20 meq PO DAILY Rx Instructions: take 2 capsules by mouth once daily Gemtesa 75 mg tablet 75 mg PO DAILY losartan 50 mg tablet 50 mg PO BID Qty: 180 4RF Xarelto 15 mg tablet 15 mg PO DINNER Qty: 30 11RF Rx Instructions: must administer with evening meal carvedilol 12.5 mg tablet 12.5 mg PO BID Qty: 180 3RF Rx Instructions: must administer with a meal/food hydralazine 50 mg tablet 50 mg PO TID Qty: 270 3RF Changed furosemide 20 mg tablet 20 mg PO DAILY 30 Days Qty: 0 0RF Referrals / Follow Up: Anay Barnard MD [Primary Care Provider] - 10/17/24 1:30 pm Faustina Hernandez PA [Med Staff - [facility]] - 11/04/24 9:30 am Disposition Disposition (needs filled in before D/C Order can be placed): Home, Self Care Charges/Coding Visit Charges Inpatient E&M: 84765 Disch Hosp >30min
== END 2024-10-13 11:48 | disposition home or self-care (01) | DRG 309 ==
LOC: ED 14:33 → PCU 15:13
PROVIDERS: Nurse Practitioner; Admitting Provider Family Medicine; Emergency Provider Emergency Medicine; PCP Internal Medicine; Visit Provider Family Medicine
DX: I48.0 Paroxysmal atrial fibrillation (principal); I13.0 Hypertensive heart and chronic kidney disease with heart failure and stage 1 through stage 4 chronic kidney disease, or unspecified chronic kidney disease; I24.89 Other forms of acute ischemic heart disease; I50.32 Chronic diastolic (congestive) heart failure; D63.1 Anemia in chronic kidney disease; Z66 Do not resuscitate; I27.20 Pulmonary hypertension, unspecified; N18.32 Chronic kidney disease, stage 3b; E03.9 Hypothyroidism, unspecified; I07.1 Rheumatic tricuspid insufficiency; K21.9 Gastro-esophageal reflux disease without esophagitis; E78.5 Hyperlipidemia, unspecified; I95.9 Hypotension, unspecified; Z11.52 Encounter for screening for COVID-19; Z79.01 Long term (current) use of anticoagulants; Z79.890 Hormone replacement therapy; Z79.899 Other long term (current) drug therapy; Z87.891 Personal history of nicotine dependence
CPT/HCPCS: 36415; 71045; 80048; 80053; 80061; 81001; 83735; 84443; 84484; 85025; 85610; 87631; 93005; 93306; 94668; 94762; 97161; 99285; A4216

== ENCOUNTER → 2024-10-24 | Outpatient (CLI) | payer MEDICARE, SELFPAY ==
[2024-10-24 16:18] LABS: Absolute Lymphocyte Count 1.66 X10^3/uL (0.83-4.51); Absolute Neutrophil Count 3.7 X10^3/uL (2.0-7.7); Basophil# 0.05 X10^3/uL; Basophil% 0.8 % (0-1); Eosinophils% 1.7 % (0-5); Hematocrit 33.8 % (37-47); Lymphocyte # 1.66 X10^3/ul (0.83-4.51); Mean Corp Hgb Conc 32.5 g/dL (32-36); Mean Corpuscular Volume 98.3 fL (81-99); Monocyte% 6.8 % (0-10); NRBC Flagged by Analyzer 0 % (0-5); Neutrophil # 3.68 X10^3/uL (2.7-7.7); Neutrophil % 62.2 % (47-70); Platelet Count 220 K/mm3 (150-450); RBC Distribution Width CV 12.8 % (11.6-14.6); RBC Distribution Width SD 46.2 fl (35.1-43.9); Red Blood Count 3.44 M/mm3 (4.2-5.4); White Blood Count 5.9 K/mm3 (4.4-11.0)
[2024-10-24 16:48] LABS: Anion Gap 11 (5-15); BUN 39 mg/dL (4-19); BUN/Creat Ratio 19.2 RATIO (10-20); Calcium,Total 9.2 mg/dL (7.6-11.0); Carbon Dioxide 19.4 mmol/L (21.0-32.0); Chloride 106 mmol/L (98-108); Creatinine, Serum 2.03 mg/dL (0.70-1.20); EST Glomerular Filtration Rate 23 (>60); Glucose 109 mg/dL (70-99); Potassium 4.9 mmol/L (3.3-5.1); Sodium Level 137 mmol/L (133-145)
== END | disposition home or self-care (01) ==
LOC: LAB 15:10
PROVIDERS: PCP Internal Medicine; Referring Provider Nurse Practitioner Gerontology; Visit Provider Nurse Practitioner Gerontology
DX: I48.0 Paroxysmal atrial fibrillation (principal)
CPT/HCPCS: 36415; 80048; 85025

== ENCOUNTER → 2024-10-27 | Outpatient (CLI) | payer MEDICARE, SELFPAY | END | disposition home or self-care (01) | LOC: PSN 13:00 | PROVIDERS: PCP Internal Medicine; Referring Provider Physician Assistant Medical; Visit Provider Physician Assistant Medical | DX: I48.0 Paroxysmal atrial fibrillation (principal) | CPT/HCPCS: 93225; 93226 ==

== ENCOUNTER 2024-10-30 11:17 | Inpatient (IN) | payer MEDICARE, SELFPAY ==
[2024-10-30] VITALS (20 sets, daily range): BP systolic 104–157; BP diastolic 49–109; PULSE 70–132; RESP 15–28; TEMP 36.2–37.1; O2SAT 94–99; BMI 26.4; BMI 25.9
--- NOTE | 2024-10-30 12:16 | EX.ED.DYSGE1 ---
HPI History of Present Illness Chief Complaint: Weakness [facility] Medical History Hypothyroidism (acquired) Wears glasses Post-menopausal Thyroid disease Gastric reflux Former smoker History of edema History of echocardiogram History of stress test Cardiology follow-up encounter History of CHF (congestive heart failure) Paroxysmal atrial fibrillation Stage 3b chronic kidney disease (CKD) Elevated liver enzymes CKD (chronic kidney disease) stage 4, GFR 15-29 ml/min Stage 3b chronic kidney disease (CKD) Lymphedema of both lower extremities Bilateral lower extremity edema Dyspnea on exertion Pneumonia (03/19/22) Essential hypertension Atrial fibrillation, new onset Positive occult stool blood test Umbilical hernia Osteoporosis Hemorrhage of anus and rectum Glaucoma Acquired keratoderma Anemia Syncope Essential hypertension Sweating Palpitations Near syncope Hernia HLD (hyperlipidemia) Home Medications ?Medication ?Instructions ?Recorded ?Last Taken ?Type atorvastatin 20 mg tablet 20 mg PO QODAY Cholesterol 12/06/16 10/28/24 History timolol maleate 0.5 % eye drops 1 drp RIGHT EYE BID eye drops 12/06/16 10/29/24 History brimonidine 0.15 % eye drops 1 drp ophthalmic (eye) BID eye 03/25/22 10/29/24 History health levothyroxine 25 mcg tablet 25 mcg PO DAILY thyroid 03/25/22 10/30/24 History losartan 50 mg tablet 50 mg PO BID bp #180 tabs 07/11/22 10/30/24 Rx cholecalciferol (vitamin D3) 50 50 mcg PO BID supplement 05/08/23 10/29/24 History mcg (2,000 unit) capsule mecobalamin (vitamin B12) 1,000 1,000 mcg PO DAILY supplement 05/08/23 10/29/24 History mcg chewable tablet denosumab 60 mg/mL subcutaneous 60 mg subcut [id number] bone health 08/20/23 04/25/24 History syringe (Prolia) rivaroxaban 15 mg tablet (Xarelto) 15 mg PO DINNER blood thinner #30 04/25/24 10/29/24 Rx tabs omeprazole 40 mg capsule,delayed 20 mg PO DAILY gerd 06/14/24 10/30/24 History release potassium chloride 10 mEq 20 meq PO DAILY 08/27/24 10/11/24 History capsule,extended release Held on 10/25/24. Instructions: Lasix on Hold vibegron 75 mg tablet (Gemtesa) 75 mg PO DAILY bladder 08/27/24 10/30/24 History furosemide 20 mg tablet 20 mg PO DAILY 30 days #0 tabs 10/13/24 Unknown Rx Held on 10/30/24. Instructions: MD Ordered metoprolol tartrate 50 mg tablet 100 mg (2 x 50 mg) PO BID #60 tabs 10/25/24 10/30/24 Rx carvedilol 12.5 mg tablet 12.5 mg PO BID blood pressure 10/30/24 Unknown History Held on 10/30/24. Instructions: MD Ordered ferrous sulfate 325 mg (65 mg 325 mg PO DAILY 10/30/24 10/29/24 History iron) tablet (Feosol) netarsudil 0.02 %-latanoprost 1 drp ophthalmic (eye) DAILY 10/30/24 10/29/24 History 0.005 % eye drops (Rocklatan) ondansetron HCl 4 mg tablet 4 mg PO Q8H PRN nausea/vomiting 10/30/24 10/30/24 History Allergy/AdvReac Type Severity Reaction Status Date / Time amantadine Allergy Rash Verified 10/30/24 11:17 cephalexin Allergy Rash Verified 10/30/24 11:17 erythromycin base Allergy Rash Verified 10/30/24 11:17 hydrochlorothiazide Allergy Rash Verified 10/30/24 11:17 Iodinated Contrast Media Allergy Rash Verified 10/30/24 11:17 nitrofurantoin (From Allergy Vomiting Verified 10/30/24 11:17 Macrobid) amlodipine (From Norvasc) AdvReac Other Verified 10/30/24 11:17 Family History Mother CAD (coronary artery disease) Father CAD (coronary artery disease) Brother CAD (coronary artery disease) Sister CAD (coronary artery disease) Surgical History History of cardiac catheterization Hx of esophagogastroduodenoscopy History of colonoscopy History of hysteroscopy H/O hernia repair Tubal ligation status History of left heart catheterization (02/05/18) s/p left wrist ORIF Social History household members: none housing: apartment number of children: 4 Smoking Status: Former smoker quit date: 06/29/76 alcohol intake: never substance use type: does not use caffeine: Yes (Occasionally) EXAM Physical Exam Const Vital Signs: 10/30/24 11:18 10/30/24 11:19 10/30/24 11:19 Temperature 97.2 F L 97.6 F L Temperature Source Temporal Oral Pulse Rate 118 H 113 H Respiratory Rate 19 H 18 Respiratory Effort Normal Respiratory Pattern Normal Blood Pressure 115/75 104/78 Blood Pressure Mean 88 86 Pulse Ox 98 98 Oxygen Delivery Method Room Air Room Air 10/30/24 12:19 10/30/24 13:00 10/30/24 14:00 Temperature 98.7 F 98.2 F 97.9 F Temperature Source Oral Oral Oral Pulse Rate 127 H 132 H 116 H Respiratory Rate 18 20 H 20 H Respiratory Effort Respiratory Pattern Blood Pressure 107/78 108/88 H 137/109 H Blood Pressure Mean 87 94 118 Pulse Ox 99 98 99 Oxygen Delivery Method Room Air Room Air Room Air 10/30/24 15:00 10/30/24 15:28 10/30/24 15:43 Temperature Temperature Source Pulse Rate 124 H 79 70 Respiratory Rate 15 21 H 15 Respiratory Effort Respiratory Pattern Blood Pressure 119/90 H 110/49 L 119/60 Blood Pressure Mean 99 69 79 Pulse Ox 97 99 99 Oxygen Delivery Method Room Air Room Air Room Air 10/30/24 16:25 Temperature 97.8 F Temperature Source Pulse Rate 79 Respiratory Rate 22 H Respiratory Effort Respiratory Pattern Blood Pressure 140/61 H Blood Pressure Mean 87 Pulse Ox 98 Oxygen Delivery Method MDM MDM MDM Narrative Medical decision making narrative: HISTORY OF PRESENT ILLNESS: Chief complaint: Weakness 88-year-old female history of CHF, CKD, hyperlipidemia, hypertension, CAD status post left heart cath in 2018, anemia, atrial fibrillation currently on Xarelto presents with generalized weakness and nausea. She states she feels diffuse weakness of the past several days. Notes a cough is nonproductive. Denies chest pain. Denies shortness of breath. No she is very fatigued with walking. She notes severe leg weakness when ambulating any distance. She notes compliance all of her medications. She notes he was recently taken off her water pill. No she was recent started on metoprolol from carvedilol. Denies vomiting. Denies abdominal pain. Denies urinary complaint such as frequency urgency or dysuria. Denies melena or hematochezia. Denies leg swelling. REVIEW OF SYSTEMS: Pertinent positives: Weakness, pallor Pertinent negatives: As per HPI PHYSICAL EXAM: Nursing triage notes reviewed, Vital signs reviewed Constitutional: please see [facility] HENT: MMM Eyes: Pupils equal round and reactive to light, Extraocular muscles intact Neck: No stridor, no JVD, full neck ROM Lungs: Clear to auscultation, No wheezing or rales. No increased work of breathing, no conversational dyspnea, no accessory muscle use, no nasal flaring. No respiratory distress noted Heart: Fast, irregular rate consistent with A-fib no murmurs, No rubs and No gallops, 2+ distal pulses (radial, femoral, posterior tibial) in all extremities Abdomen: Soft, there is no tenderness, rigidity, rebound or guarding, no obvious peritoneal signs, no palpable pulsatile abdominal masses, no auscultated abdominal bruit : No CVAT Extremities: No edema Neuro: No new focal neurological deficits, cranial nerves II through XII intact, 5/5 strength in all present extremities. Intact sensation to light touch in all present extremities, 2+ reflexes bilateral patella tendons. Skin: Significant skin pallor noted MEDICAL DECISION MAKING: Chief Complaint: please see [facility] External records reviewed: Reviewed prior cardiovascular testing: Reviewed echocardiogram from September 2024 showed ejection fraction of 60% Recent ED visit and hospitalization for A-fib with RVR. Factors affecting care:As per [facility] Social determinants of health: none History obtained from others: none [] Consults: 1. Cardiology (Dr. Granado) discussed the case. Recommended admission for diuresis, rate control and telemetry monitoring. 2. Internal medicine (Dr. Cain) [facility] Narrative: The patient was initially tachycardic with a heart rate of 113, afebrile saturating 99% room air. Exam without focal deficits. Noted significant pallor I considered the following differential diagnosis: Arrhythmia, anemia, electro disturbance, UTI, pneumonia, dehydration, CVA I obtained a broad lab and imaging workup to further elucidate etiology of patient's complaints. Initially gave 1 dose of 5 mg of IV metoprolol given initial EKG showed A-fib with RVR ALL IMAGES (IF OBTAINED) HAVE BEEN PERSONALLY REVIEWED AND INTERPRETED BY MYSELF. EKG with atrial fibrillation, RVR, normal axis, no STEMI CBC without leukocytosis, noted improved anemia, no thrombocytopenia BMP with GERI on CKD, no other significant electrolyte abnormalities, BNP elevated to 11,000 consistent with volume overload and heart failure Urinalysis shows no evidence of urinary inflammation suggestive of UTI Chest x-ray was read reviewed personally by myself cardiomegaly, some slight venous congestion by my read. Radiologist noted small right pleural effusion High-sensitivity troponin values negative for ACS The synthesis of the patient's history, physical exam, labs images suggest A-fib with RVR induced heart failure exacerbation complicated by GERI on CKD. Given difficulty in balancing volume overload, diuresis and acute kidney injury will admit to the hospital for further management. Discussed with cardiology who agreed with admission. Discussed with hospitalist. The patient and/or family, caregivers express understanding. The patient and/or family, caregivers agrees with the plan. Shared decision making: I will have a discussion with the patient and or visitors regarding risk/benefits of further testing or admission. They will be made aware of of the risk/benefits inherent in this decision they will be given the opportunity to voice understanding. Total critical care time today provided was at least 0 minutes. This excludes separately billable procedures. Critical care time (if documented) is secondary to the patient having high probability of clinically significant/life threatening deterioration in the patient's condition which required my urgent intervention. Impression: 1. CHF exacerbation 2. A-fib with RVR 3. GERI on CKD Dispo: Admit to PCU This note was generated with [employer] dictation software. It may contain incorrect words, spelling, and punctuation that were not noted in review of the chart prior to signing. Lab Data Labs: Laboratory Results - last 24 hr 10/30/24 10/30/24 10/30/24 12:08 13:24 14:15 WBC 7.9 RBC 3.63 L Hgb 11.5 L Hct 35.6 L MCV 98.1 MCH 31.7 MCHC 32.3 RDW Std Deviation 48.1 H RDW Coeff of Broderick 13.6 Plt Count 229 MPV 11.6 Immature Gran % (Auto) 0.500 Neut % (Auto) 72.3 H Lymph % (Auto) 18.5 L [place] % (Auto) 6.7 Eos % (Auto) 1.4 Baso % (Auto) 0.6 Absolute Neuts (auto) 5.7 Absolute Lymphs (auto) 1.47 Nucleated RBC % 0.3 Sodium 137 Potassium 5.0 Chloride 109 H Carbon Dioxide 17.5 L Anion Gap 10 BUN 40 H Creatinine 2.27 H Estim Creat Clear Calc 15.50 L Est GFR (MDRD) Non-Af 20 L BUN/Creatinine Ratio 17.7 Glucose 118 H Calcium 9.1 Troponin T High Sens 45 H D Troponin T Hi Sens 2 [place] [address] H Urine Color Yellow Urine Clarity Clear Urine pH 6.0 Ur Specific [place] 1.020 Urine Protein 30 H Urine Glucose (UA) Normal Urine Ketones Negative Urine Occult Blood Negative Urine Nitrite Negative Urine Bilirubin Negative Urine Urobilinogen Normal Ur Leukocyte Esterase 100 H Urine RBC 0 SEEN Urine WBC 5-10 SEEN Ur Squamous Epith Cells 0-5 SEEN Urine Bacteria 3+ Hyaline Casts 0-5 SEEN Urine Mucus RARE U Random Total Protein 41.2 H Blood Type A POSITIVE Antibody Screen NEGATIVE 10/30/24 14:47 WBC RBC Hgb Hct MCV MCH MCHC RDW Std Deviation RDW Coeff of Broderick Plt Count MPV Immature Gran % (Auto) Neut % (Auto) Lymph % (Auto) [place] % (Auto) Eos % (Auto) Baso % (Auto) Absolute Neuts (auto) Absolute Lymphs (auto) Nucleated RBC % Sodium Potassium Chloride Carbon Dioxide Anion Gap BUN Creatinine Estim Creat Clear Calc Est GFR (MDRD) Non-Af BUN/Creatinine Ratio Glucose Calcium Troponin T High Sens Troponin T Hi Sens 2 Hr 50 H NT pro BNP II Urine Color Urine Clarity Urine pH Ur Specific [place] Urine Protein Urine Glucose (UA) Urine Ketones Urine Occult Blood Urine Nitrite Urine Bilirubin Urine Urobilinogen Ur Leukocyte Esterase Urine RBC Urine WBC Ur Squamous Epith Cells Urine Bacteria Hyaline Casts Urine Mucus U Random Total Protein Blood Type Antibody Screen Radiography Diagnostic Testing: Clinical Impression(s) from Imaging Studies Chest X-Ray 10/30/24 12:53 IMPRESSION: Small right pleural effusion. Cardiomegaly. Reading Location: [id number] Discharge Plan Triage Chief Complaint: Weakness ED Provider: Jose Mcgraw Dx/Rx/DC Orders Prescriptions: No Action levothyroxine 25 mcg tablet 25 mcg PO DAILY brimonidine 0.15 % drops 1 drp ophthalmic (eye) BID Rx Instructions: right eye omeprazole 40 mg capsule,delayed release(DR/EC) 20 mg PO DAILY Prolia 60 mg/mL syringe 60 mg subcut [id number] Patient Comments: STARTS END UP SEPTEMBER. mecobalamin (vitamin B12) 1,000 mcg tablet,chewable 1,000 mcg PO DAILY cholecalciferol (vitamin D3) 50 mcg (2,000 unit) capsule 50 mcg PO BID atorvastatin 20 MG tablet 20 mg PO QODAY Patient Comments: CHOLESTEROL timolol maleate 1 DROP drops 1 drp RIGHT EYE BID Patient Comments: EYE DROPS furosemide 20 mg tablet 20 mg PO DAILY 30 Days Qty: 0 0RF ferrous sulfate [Feosol] 325 mg (65 mg iron) tablet 325 mg PO DAILY ondansetron HCl 4 mg tablet 4 mg PO Q8H PRN (Reason: nausea/vomiting) Rocklatan 0.02-0.005 % drops 1 drp ophthalmic (eye) DAILY carvedilol 12.5 mg tablet 12.5 mg PO BID potassium chloride 10 mEq capsule, extended release 20 meq PO DAILY Rx Instructions: take 2 capsules by mouth once daily Gemtesa 75 mg tablet 75 mg PO DAILY losartan 50 mg tablet 50 mg PO BID Qty: 180 4RF Xarelto 15 mg tablet 15 mg PO DINNER Qty: 30 11RF Rx Instructions: must administer with evening meal metoprolol tartrate 50 mg tablet 100 mg PO BID Qty: 60 6RF Primary Care Provider: Anay Barnard Referrals: Anay Barnard MD [Primary Care Provider] - Print Language: Angolan
--- NOTE | 2024-10-30 12:43 | EKG12_ITS ---
Test Reason : DIZZINESS/WEAKNESS Blood Pressure : */* mmHG Vent. Rate : 126 BPM Atrial Rate : * BPM P-R Int : * ms QRS Dur : 80 ms QT Int : 308 ms P-R-T Axes : * 73 220 degrees QTcB Int : 446 ms Atrial fibrillation with rapid ventricular response ST & T wave abnormality, consider inferior ischemia Abnormal ECG Confirmed by aJcob Kingston ([id number]), editor at large JUANPABLO POSADA ([id number]) on 11/04/2024 12:10:07 PM Referred By: Confirmed By: Jacob Kingston
--- NOTE | 2024-10-30 12:53 | RAD_ITS ---
PROCEDURE: CHEST 1 VIEW (PORTABLE) 10/30/2024 REASON FOR EXAM: WEAKNESS, COUGH TECHNIQUE: Frontal view of the chest. COMPARISON: 10/11/2024 FINDINGS: Hardware: None Heart: Heart size is moderately enlarged. Lungs: The lungs are clear. Small right pleural effusion. Bones: The bones are unremarkable. Other: RAD/Chest 1 View (Portable) IMPRESSION: Small right pleural effusion. Cardiomegaly. Reading Location: [id number]
[2024-10-30 13:03] LABS: Absolute Lymphocyte Count 1.47 X10^3/uL (0.83-4.51); Absolute Neutrophil Count 5.7 X10^3/uL (2.0-7.7); Basophil# 0.05 X10^3/uL; Basophil% 0.6 % (0-1); Eosinophil# 0.11 X10^3/uL; Eosinophils% 1.4 % (0-5); Hematocrit 35.6 % (37-47); Hemoglobin 11.5 g/dL (12.0-15.0); Lymphocyte # 1.47 X10^3/ul (0.83-4.51); Lymphocyte % 18.5 % (19-41); Mean Corp Hgb Conc 32.3 g/dL (32-36); Mean Corpuscular Hgb 31.7 pg (27.0-32.0); Mean Corpuscular Volume 98.1 fL (81-99); Mean Platelet Vol. 11.6 fl (6.2-12.0); Monocyte# 0.53 X10^3/uL; Monocyte% 6.7 % (0-10); NRBC Flagged by Analyzer 0.3 % (0-5); Neutrophil # 5.73 X10^3/uL (2.7-7.7); Neutrophil % 72.3 % (47-70); Platelet Count 229 K/mm3 (150-450); RBC Distribution Width CV 13.6 % (11.6-14.6); RBC Distribution Width SD 48.1 fl (35.1-43.9); Red Blood Count 3.63 M/mm3 (4.2-5.4); White Blood Count 7.9 K/mm3 (4.4-11.0)
[2024-10-30 13:14] LABS: Pro- Brain NATRIURETIC PEPTIDE 11273 pg/mL (<=1800)
[2024-10-30 13:32] LABS: Anion Gap 10 (5-15); BUN 40 mg/dL (4-19); BUN/Creat Ratio 17.7 RATIO (10-20); Calcium,Total 9.1 mg/dL (7.6-11.0); Carbon Dioxide 17.5 mmol/L (21.0-32.0); Chloride 109 mmol/L (98-108); Creatinine, Serum 2.27 mg/dL (0.70-1.20); EST Glomerular Filtration Rate 20 (>60); Glucose 118 mg/dL (70-99); Sodium Level 137 mmol/L (133-145)
[2024-10-30 13:43] LABS: Troponin T High Sensitivity 45 ng/L (<=14)
[2024-10-30] MEDS: Metoprolol Tartrate 5 MG/5 ML Vial IV (13:44)
[2024-10-30 14:22] LABS: Red Blood Cells-Urine 0 SEEN /hpf (0-5)
[2024-10-30 14:40] LABS: Color, Urine Yellow (Yellow); Glucose, Dipstick Normal (Normal); Ketone-Dipstick Negative (Negative); Leukocyte Esterase-Dipstick 100 /ul (Negative); Nitrite-Dipstick Negative (Negative); Occult Blood-Urine Negative /ul (Negative); Protein-Dipstick 30 mg/dl (Negative); Urine Bilirubin Dipstick Negative (Negative); Urine Clarity Clear (Clear); Urine Urobilinogen Normal (Normal)
[2024-10-30 15:14] LABS: Troponin T High Sens 2 HR 50 ng/L (<=14)
[2024-10-30] MEDS: dilTIAZem 25 MG/5 ML Vial 10 MG IV BOLUS (15:20)
[2024-10-30 15:21] LABS: Protein, Urine (Random) 41.2 mg/dL (0.0-12.0)
[2024-10-30 15:28] LABS: Bacteria 3+ /hpf (None Seen); Squamous Epithelial Cells - UA 0-5 SEEN /hpf (5-10); White Blood Cells 5-10 SEEN /hpf (0-5)
[2024-10-30 15:29] LABS: Hyaline Cast 0-5 SEEN /lpf (0-5); Mucous, Urine RARE /hpf (<or=2+)
--- NOTE | 2024-10-30 16:45 | CASEMGMT ---
Care Management Face to Face with patient for initial transition planning/care coordination assessment in the ED.? This verse writer introduced self and role at [facility]. Patient alert and oriented. Patient willing to participate in assessment and is able to answer all questions appropriately.? Care providers, pharmacy, and demographics verified. Patient?s daughter Jessa was at patient?s bedside and assisted with assessment at times. Patient was agreeable to. Admitting Diagnosis: Weakness/CHF exacerbation, A-fib with RVR and GERI on CKD. Other diagnosis history: Including but not limited to: Hypothyroidism, CHF, Stage 3 CKD, HTN, A-Fib, Osteoporosis, Anemia, HLD, ?and Edema. PCP: Dr. Anay Barnard Specialists: Principal Strategist: Dr. Kingston, Infrastructure Software Engineer: Dr. Bina Sewell, Vegetable Sorter: Dr. Yuriy Collins, Gate Supervisor: Dr. Terry Basilio, and Urologist: Dr. Adler Preferred Pharmacy: [facility] Insurance: [employer] Prescription Benefit: Partial Living Will/HPOA: ?Yes; loft worker pile driving requested that patient?s daughter Jessa bring in a copy on 10/31 which she reported she would do.? LNOK: Patient is and has 2 daughters, Jessa of [employer] [place], [place], and 2 sons, Jose Carlos of [place], [place] and Landy, current whereabouts unknown. Living Arrangements: Patient stated she lives in an ?apartment?, sounded like a detached [id number] suite on Jessa?s property. Patient stated it is all one floor living and patient only has 1 small step which leads to the kitchen that patient stated she is able to navigate without difficulty. Patient denied any environmental barriers. Transportation: Patient drives DME: Grab bar in shower, shower chair, standard walker, and a quad cane. HHC: Previous through [facility] from June-July of 2023. Patient unable to provide details. SNF/Rehab: Patient denied any history of. Community Resources: None and none needed. Behavioral Health History: Denied. Patient goals: Patient wishes to discharge home, denies need for home health care at this time. Patient denies any further needs or concerns at this time. Disposition Plan: admission to acute; RN CM/SW to follow for discharge planning needs that may arise. Margie Bryant, INSURANCE LEGAL ASSISTANT, CENTRAL STERILIZATION TECHNICIAN
[2024-10-30 17:14] LABS: Troponin T High Sens 4 HR 43 ng/L (<=14)
--- NOTE | 2024-10-30 17:20 | HP.PCM.HOS_ITS ---
HPI - General General Date of Admission: 10/30/24 HPI Narrative BERNADETTE ELIZABETH, is a 88 F who presents to the hospital feeling just general malaise. She has been having leg weakness and cramping she had been having some palpitations with episodic lightheadedness. She was recently in the hospital for A-fib and was discharged on slow A-fib and had done well for about 4 days. She was continued on her Coreg without much issue, she was also found to have pulmonary hypertension on the echocardiogram in September and therefore was also started on a very low-dose of Lasix 20 mg p.o. daily. Since that time it appears that she has been having some dehydration issues with a rise in her creatinine. She denies any significant shortness of breath but notices her palpitations and just feels off but her symptoms tend to to be vague. She has recently seen cardiology who held her Lasix and changed her Coreg to metoprolol 100 mg p.o. twice daily as she was having some soft pressures on the Coreg. No recent fevers or chills or general illnesses. Troponin was unremarkable, renal function got worse to 2.27 with a baseline of around 1.3 and her troponins are elevated but insignificant and her proBNP was 11,000 which is to be expected given the rise in her creatinine. [facility] Medical History Hypothyroidism (acquired) Wears glasses Post-menopausal Thyroid disease Gastric reflux Former smoker History of edema History of echocardiogram History of stress test Cardiology follow-up encounter History of CHF (congestive heart failure) Paroxysmal atrial fibrillation Stage 3b chronic kidney disease (CKD) Elevated liver enzymes CKD (chronic kidney disease) stage 4, GFR 15-29 ml/min Stage 3b chronic kidney disease (CKD) Lymphedema of both lower extremities Bilateral lower extremity edema Dyspnea on exertion Pneumonia (03/19/22) Essential hypertension Atrial fibrillation, new onset Positive occult stool blood test Umbilical hernia Osteoporosis Hemorrhage of anus and rectum Glaucoma Acquired keratoderma Anemia Syncope Essential hypertension Sweating Palpitations Near syncope Hernia HLD (hyperlipidemia) Home Medications ?Medication ?Instructions ?Recorded ?Last Taken ?Type atorvastatin 20 mg tablet 20 mg PO QODAY Cholesterol 0 12/06/16 10/28/24 History timolol maleate 0.5 % eye drops 1 drp RIGHT EYE BID ey e drops 12/06/16 10/29/24 History brimonidine 0.15 % eye drops 1 drp ophthalmic (eye) BI D eye 03/25/22 10/29/24 History health levothyroxine 25 mcg tablet 25 mcg PO DAILY thyroid 10/30/24 History losartan 50 mg tablet 50 mg PO BID bp #180 tabs 10/30/24 Rx cholecalciferol (vitamin D3) 50 50 mcg PO BID suppleme nt 05/08/23 10/29/24 History mcg (2,000 unit) capsule mecobalamin (vitamin B12) 1,000 1,000 mcg PO DAILY sup plement 05/08/23 10/29/24 History mcg chewable tablet denosumab 60 mg/mL subcutaneous 60 mg subcut [id number] bone health 08/20/23 04/25/24 History syringe (Prolia) rivaroxaban 15 mg tablet (Xarelto) 15 mg PO DINNER blo od thinner #30 04/25/24 10/29/24 Rx tabs omeprazole 40 mg capsule,delayed 20 mg PO DAILY gerd 1 08/15/23 10/30/24 History release potassium chloride 10 mEq 20 meq PO DAILY 08/27/24 History capsule,extended release Held on 10/25/24. Instructions: Lasix on Hold vibegron 75 mg tablet (Gemtesa) 75 mg PO DAILY bladder 08/27/24 10/30/24 History furosemide 20 mg tablet 20 mg PO DAILY 30 days #0 ta bs 10/13/24 Unknown Rx Held on 10/30/24. Instructions: Ordered metoprolol tartrate 50 mg tablet 100 mg (2 x 50 mg) PO BID #60 tabs 10/25/24 10/30/24 Rx carvedilol 12.5 mg tablet 12.5 mg PO BID blood pressur e 10/30/24 Unknown History Held on 10/30/24. Instructions: Ordered ferrous sulfate 325 mg (65 mg 325 mg PO DAILY 10/30/24 10/29/24 History iron) tablet (Feosol) netarsudil 0.02 %-latanoprost 1 drp ophthalmic (eye) D AILY 10/30/24 10/29/24 History 0.005 % eye drops (Rocklatan) ondansetron HCl 4 mg tablet 4 mg PO Q8H PRN nausea/vom iting 10/30/24 10/30/24 History Allergy/AdvReac Type Severity Reaction Status Date / Time amantadine Allergy Rash Verified 10/30/24 11:17 cephalexin Allergy Rash Verified 10/30/24 11:17 erythromycin base Allergy Rash Verified 10/30/24 11:17 hydrochlorothiazide Allergy Rash Verified 10/30/24 11:17 Iodinated Contrast Media Allergy Rash Verified 10/30/24 11:17 nitrofurantoin (From Allergy Vomiting Verified 10/30/24 11:17 Macrobid) amlodipine (From Norvasc) AdvReac Other Verified 10/30/24 11:17 Family History (Reviewed 10/24/24 @ 15:54 by Ning Borden APPLICATIONS DEVELOPMENT ANALYST, APPLICATIONS DEVELOPMENT ANALYST-C) Mother CAD (coronary artery disease) Father CAD (coronary artery disease) Brother CAD (coronary artery disease) Sister CAD (coronary artery disease) Surgical History (Reviewed 10/24/24 @ 15:54 by Ning Borden APPLICATIONS DEVELOPMENT ANALYST, APPLICATIONS DEVELOPMENT ANALYST-C) History of cardiac catheterization Hx of esophagogastroduodenoscopy History of colonoscopy History of hysteroscopy H/O hernia repair Tubal ligation status History of left heart catheterization (02/05/18) s/p left wrist ORIF Social History (Reviewed 10/24/24 @ 15:54 by Ning Borden APPLICATIONS DEVELOPMENT ANALYST, APPLICATIONS DEVELOPMENT ANALYST-C) household members: none housing: apartment number of children: 4 Smoking Status: Former smoker quit date: 06/29/76 alcohol intake: never substance use type: does not use caffeine: Yes (Occasionally) ROS Constitutional Constitutional: Reports fatigue, malaise and weakness; Denies chills or fever(s) Eyes Eyes: Denies blurry vision ENT HEENT: Denies headache(s) or nasal discharge Cardiovascular Cardiovascular: Reports lightheadedness and palpitations; Denies chest pain, dyspnea on exertion or syncope Respiratory/Chest Respiratory/Chest: Denies cough, shortness of breath at rest or shortness of breath with exertion Gastrointestinal Gastrointestinal: Denies constipation, diarrhea, nausea or vomiting Genitourinary Genitourinary: Denies dysuria Neurologic Neurologic: Denies focal weakness, numbness or tremor(s) Psychiatric Psychiatric: Denies anxiety or depression Vital Signs Vital Signs Vital Signs: 10/30/24 11:18 10/30/24 11:19 10/30/24 11:19 Temperature 97.2 F L 97.6 F L Temperature Source Temporal Oral Pulse Rate 118 H 113 H Respiratory Rate 19 H 18 Respiratory Effort Normal Respiratory Pattern Normal Blood Pressure 115/75 104/78 Blood Pressure Mean 88 86 Pulse Ox 98 98 Oxygen Delivery Method Room Air Room Air 10/30/24 12:19 10/30/24 13:00 10/30/24 14:00 Temperature 98.7 F 98.2 F 97.9 F Temperature Source Oral Oral Oral Pulse Rate 127 H 132 H 116 H Respiratory Rate 18 20 H 20 H Respiratory Effort Respiratory Pattern Blood Pressure 107/78 108/88 H 137/109 H Blood Pressure Mean 87 94 118 Pulse Ox 99 98 99 Oxygen Delivery Method Room Air Room Air Room Air 10/30/24 15:00 10/30/24 15:28 10/30/24 15:43 Temperature Temperature Source Pulse Rate 124 H 79 70 Respiratory Rate 15 21 H 15 Respiratory Effort Respiratory Pattern Blood Pressure 119/90 H 110/49 L 119/60 Blood Pressure Mean 99 69 79 Pulse Ox 97 99 99 Oxygen Delivery Method Room Air Room Air Room Air 10/30/24 16:25 10/30/24 17:00 Temperature 97.8 F Temperature Source Pulse Rate 79 95 Respiratory Rate 22 H 22 H Respiratory Effort Respiratory Pattern Blood Pressure 140/61 H 157/70 H Blood Pressure Mean 87 99 Pulse Ox 98 97 Oxygen Delivery Method Room Air Weight Weight: 144 lb 2.917 oz Body Mass Index (BMI) 26.4 Physical Exam Narrative General: Alert, Oriented x3, Cooperative, No apparent distress HEENT: Atraumatic, PERRLA, EOMI, Normocephalic Oral: Moist Mucosa Neck: Supple, No JVD Lungs: Diminished, Normal air movement, No rhonchi, No wheeze, No rales Cardiovascular: Regular rate, A-fib, Normal S1, Normal S2, No murmurs Abdomen: Soft, Non Tender, Non-Distended, No Hepato-splenomegaly Extremities: No edema, Capillary Refill Less than 3 Seconds Skin: No rashes, No breakdown Musculoskeletal: No Tenderness to Palpation of Joints or Extremities Neurological: No focal neurological deficits, moves all extremities Psych/Mental Status: Flat Results Lab / Micro Data 10/30/24 12:08 10/30/24 12:08 Labs: Laboratory Results - last 24 hr 10/30/24 12:08: WBC 7.9, RBC 3.63 L, Hgb 11.5 L, Hct 35.6 L, MCV 98.1, MCH 31.7, MCHC 32.3, RDW Std Deviation 48.1 H, RDW Coeff of [place]der[place] 13.6, Plt Count 229, MPV 11.6, Immature Gran % (Auto) 0.500, Neut % (Auto) 72.3 H, Lymph % (Auto) 18.5 L, [place] % (Auto) 6.7, Eos % (Auto) 1.4, Baso % (Auto) 0.6, Absolute Neuts (auto) 5.7, Absolute Lymphs (auto) 1.47, Nucleated RBC % 0.3, Sodium 137, Potassium 5.0, Chloride 109 H, Carbon Dioxide 17.5 L, Anion Gap 10, BUN 40 H, Creatinine 2.27 H, Estim Creat Clear Calc 15.50 L, Est GFR (MDRD) Non-Af 20 L, BUN/Creatinine Ratio 17.7, Glucose 118 H, Calcium 9.1, Troponin T High Sens 45 H D, [place] [address] H 10/30/24 13:24: Blood Type A POSITIVE, Antibody Screen NEGATIVE 10/30/24 14:15: Urine Color Yellow, Urine Clarity Clear, Urine pH 6.0, Ur Specific [place] 1.020, Urine Protein 30 H, Urine Glucose (UA) Normal, Urine Ketones Negative, Urine Occult Blood Negative, Urine Nitrite Negative, Urine Bilirubin Negative, Urine Urobilinogen Normal, Ur Leukocyte Esterase 100 H, Urine RBC 0 SEEN, Urine WBC 5-10 SEEN, Ur Squamous Epith Cells 0-5 SEEN, Urine Bacteria 3+, Hyaline Casts 0-5 SEEN, Urine Mucus RARE, U Random Total Protein 41.2 H 10/30/24 14:47: Troponin T Hi Sens 2 Hr 50 H 10/30/24 16:49: Troponin T Hi Sens 4Hr 43 H Micro: Microbiology 10/30/24 13:23 Mucosa - Nose SARS-CoV-2, Influenza & RSV (PCR) - Final Imaging Radiology Impression Chest X-Ray 10/30/24 12:53 IMPRESSION: Small right pleural effusion. Cardiomegaly. Reading Location: [id number] Assessment & Plan Assessment/Plan (1) GERI (acute kidney injury): (2) Paroxysmal atrial fibrillation: PLAN: Plan 1. Symptomatic slow A-fib/essential HTN/HLD/chronic diastolic CHF/pulmonary hypertension/GERI on CKD 3 ? She remains in slow A-fib, will consult cardiology ? Troponins are slightly elevated and insignificant ? Will not repeat an echo as she just had one on 10/12/2024 with an EF of 60% and PASP of 64 mmHg ? She does have an GERI, baseline creatinine is around 1.3-1.4 currently 2.27 which is likely falsely elevating her proBNP, continue with some gentle IV hydration and hold her Lasix ? Will start her on an amiodarone drip and continue with her metoprolol, if she is not chemically converted may need cardioversion ? Continue Xarelto ? Will hold her losartan secondary to her GERI ? Continue with Lipitor 2. Anemia of chronic disease in the setting of CKD 3 ? Continue with her iron replacement ? Will monitor and make adjustments as necessary 3. GERD ? Stable ? Continue with PPI 4. Hypothyroidism ? TSH recently at 2.15 ? Continue with Synthroid ? Stable DVT: Xarelto 75 minutes was spent on direct patient care, including documentation as well as chart review and collaboration with colleagues Charges/Coding Visit Charges Inpatient E&M: 73913 Init Hosp L3
[2024-10-30] MEDS: 0.9% Normal Saline (1000mL) 1,000 ML 75 ML IV (19:01)
[2024-10-30] MEDS: Amiodarone 360 MG in Dextrose 5% Viaflo Bag 192.8 ML 33.3 MG CONT INF (20:01)
[2024-10-30] MEDS: 0.9% Saline Lock 10 ML Syringe IV (20:02)
[2024-10-30] MEDS: Timolol 0.5% 5ML OPTH.BTL 1 DRP RIGHT EYE (21:20)
[2024-10-30] MEDS: Metoprolol Tartrate 100 MG Tablet PO (21:21)
[2024-10-30] MEDS: Atorvastatin Calcium 20 MG Tablet PO (21:22)
[2024-10-30] MEDS: Latanoprost 0.005% 1 Bottle 1 DRP OPHTHALMIC (21:22)
[2024-10-30] MEDS: Rivaroxaban 15 MG Tablet PO (21:23)
[2024-10-31] VITALS (31 sets, daily range): BP systolic 103–145; BP diastolic 57–105; PULSE 91–115; RESP 17–23; TEMP 36.5–36.7; O2SAT 95–100; BMI 26.4
[2024-10-31 06:00] LABS: Absolute Lymphocyte Count 1.64 X10^3/uL (0.83-4.51); Absolute Neutrophil Count 4.1 X10^3/uL (2.0-7.7); Basophil# 0.05 X10^3/uL; Basophil% 0.8 % (0-1); Eosinophil# 0.15 X10^3/uL; Eosinophils% 2.3 % (0-5); Hematocrit 32.3 % (37-47); Hemoglobin 10.2 g/dL (12.0-15.0); Lymphocyte # 1.64 X10^3/ul (0.83-4.51); Lymphocyte % 24.8 % (19-41); Mean Corp Hgb Conc 31.6 g/dL (32-36); Mean Corpuscular Hgb 31.5 pg (27.0-32.0); Mean Corpuscular Volume 99.7 fL (81-99); Mean Platelet Vol. 11.1 fl (6.2-12.0); Monocyte% 9.1 % (0-10); NRBC Flagged by Analyzer 0 % (0-5); Neutrophil # 4.13 X10^3/uL (2.7-7.7); Neutrophil % 62.5 % (47-70); Platelet Count 168 K/mm3 (150-450); RBC Distribution Width CV 13.6 % (11.6-14.6); RBC Distribution Width SD 48.1 fl (35.1-43.9); Red Blood Count 3.24 M/mm3 (4.2-5.4); White Blood Count 6.6 K/mm3 (4.4-11.0)
[2024-10-31] MEDS: Levothyroxine 25 MCG TABLET PO (06:08)
[2024-10-31 06:59] LABS: Anion Gap 12 (5-15); BUN 38 mg/dL (4-19); BUN/Creat Ratio 17.6 RATIO (10-20); Calcium,Total 8.7 mg/dL (7.6-11.0); Carbon Dioxide 14.5 mmol/L (21.0-32.0); Chloride 110 mmol/L (98-108); Creatinine, Serum 2.14 mg/dL (0.70-1.20); EST Glomerular Filtration Rate 22 (>60); Estimated Creatinine Clearance 16.46 ml/min (50-250); Glucose 104 mg/dL (70-99); Potassium 4.2 mmol/L (3.3-5.1); Sodium Level 136 mmol/L (133-145)
[2024-10-31] MEDS: Amiodarone 360 MG in Dextrose 5% Viaflo Bag 192.8 ML 16.7 MG CONT INF ×2 (07:41→20:25)
[2024-10-31] MEDS: 0.9% Normal Saline (1000mL) 1,000 ML 75 ML IV (08:15)
--- NOTE | 2024-10-31 08:42 | PCM.PN.HOSP ---
Reason for Visit Reason for Visit: Diagnoses Paroxysmal atrial fibrillation (10/30/24) Acute kidney failure, unspecified (10/30/24) Objective Data Objective Data Vital Signs: Vital Signs Temp Pulse Resp BP Pulse Ox O2 Del Method 98.0 F 99 18 134/89 H 98 Room Air 10/31/24 03:00 10/31/24 08:00 10/31/24 08:00 10/31/24 08:00 10/31/24 08:00 10/31/24 08:18 Oxygen Delivery Method Room Air Weight: 144 lb 9.972 oz Body Mass Index (BMI) 26.4 Intake & Output: Intake and Output for Last 24 Hours 10/29/24 10/30/24 10/31/24 23:59 23:59 23:59 Intake Total 49.53 / 186.23 1323.36 / 1323.36 Balance 49.53 / 186.23 1323.36 / 1323.36 Lab / Micro Data 10/31/24 05:27 10/31/24 05:27 Labs: Laboratory Results - last 24 hr 10/30/24 12:08: WBC 7.9, RBC 3.63 L, Hgb 11.5 L, Hct 35.6 L, MCV 98.1, MCH 31.7, MCHC 32.3, RDW Std Deviation 48.1 H, RDW Coeff of Broderick 13.6, Plt Count 229, MPV 11.6, Immature Gran % (Auto) 0.500, Neut % (Auto) 72.3 H, Lymph % (Auto) 18.5 L, [place] % (Auto) 6.7, Eos % (Auto) 1.4, Baso % (Auto) 0.6, Absolute Neuts (auto) 5.7, Absolute Lymphs (auto) 1.47, Nucleated RBC % 0.3, Sodium 137, Potassium 5.0, Chloride 109 H, Carbon Dioxide 17.5 L, Anion Gap 10, BUN 40 H, Creatinine 2.27 H, Estim Creat Clear Calc 15.50 L, Est GFR (MDRD) Non-Af 20 L, BUN/Creatinine Ratio 17.7, Glucose 118 H, Calcium 9.1, Troponin T High Sens 45 H D, [place] [address] H 10/30/24 13:24: Blood Type A POSITIVE, Antibody Screen NEGATIVE 10/30/24 14:15: Urine Color Yellow, Urine Clarity Clear, Urine pH 6.0, Ur Specific [place] 1.020, Urine Protein 30 H, Urine Glucose (UA) Normal, Urine Ketones Negative, Urine Occult Blood Negative, Urine Nitrite Negative, Urine Bilirubin Negative, Urine Urobilinogen Normal, Ur Leukocyte Esterase 100 H, Urine RBC 0 SEEN, Urine WBC 5-10 SEEN, Ur Squamous Epith Cells 0-5 SEEN, Urine Bacteria 3+, Hyaline Casts 0-5 SEEN, Urine Mucus RARE, U Random Total Protein 41.2 H 10/30/24 14:47: Troponin T Hi Sens 2 Hr 50 H 10/30/24 16:49: Troponin T Hi Sens 4Hr 43 H 10/31/24 05:27: WBC 6.6, RBC 3.24 L, Hgb 10.2 L, Hct 32.3 L, MCV 99.7 H, MCH 31.5, MCHC 31.6 L, RDW Std Deviation 48.1 H, RDW Coeff of Broderick 13.6, Plt Count 168, MPV 11.1, Immature Gran % (Auto) 0.500, Neut % (Auto) 62.5, Lymph % (Auto) 24.8, [place] % (Auto) 9.1, Eos % (Auto) 2.3, Baso % (Auto) 0.8, Absolute Neuts (auto) 4.1, Absolute Lymphs (auto) 1.64, Nucleated RBC % 0, Sodium 136, Potassium 4.2, Chloride 110 H, Carbon Dioxide 14.5 L, Anion Gap 12, BUN 38 H, Creatinine 2.14 H, Estim Creat Clear Calc 16.46 L, Est GFR (MDRD) Non-Af 22 L, BUN/Creatinine Ratio 17.6, Glucose 104 H, Calcium 8.7 Micro: Microbiology 10/30/24 13:23 Mucosa - Nose SARS-CoV-2, Influenza & RSV (PCR) - Final Radiography Diagnostic Testing: Radiology Impression Chest X-Ray 10/30/24 12:53 IMPRESSION: Small right pleural effusion. Cardiomegaly. Reading Location: [facility] Physical Exam Narrative Patient is states she has bilateral leg weakness for about 5 to 6 weeks and cannot walk from her bedroom to living room. Has been mostly restricted to home. Admitted with generalized weakness General: Alert, Oriented x3, Cooperative HEENT: Atraumatic, PERRLA, EOMI, Normocephalic Oral: No Gingival or Mucosal Lesions/ Ulcerations Neck: Supple, No JVD, Negative Carotid Bruits Chest wall/Lungs: Air entry diminished in bilateral lung bases. No crepitation/rhonchi Cardiovascular: A-fib, variable rate. Systolic murmur Abdomen: Bowel Sounds Present, Soft, Non Tender, Non-Distended : No dysuria. No renal angle tenderness. No suprapubic tenderness. Extremities: No edema, Capillary Refill Less than 3 Seconds Skin: No rashes, No breakdown Musculoskeletal: 4/5 at bilateral knees and hip joints. ROM mildly restricted, degenerative arthritis of knees. Neurological: DTR 2/4. Muscle weakness. Psych/Mental Status: Flat affect. Assessment & Plan Assessment/Plan (1) GERI (acute kidney injury): (2) Paroxysmal atrial fibrillation: PLAN: Plan 88-year-old female being admitted for generalized weakness, looking pale and nauseated. Patient denied chest pain, shortness of breath. Complain of severe leg weakness when ambulating any distance. 1. symptomatic A-fib with mild RVR: Patient is being admitted in PCU. Her heart rate was 130/min. Currently in low 90s. Discussed with the hand therapist and amiodarone drip discontinued. Metoprolol 50 mg twice daily. On rivaroxaban. Plan for cardioversion tomorrow. Hold tomorrow morning dose of Lopressor. N.p.o. after midnight. 2. CAD, chronic diastolic heart failure, pulmonary hypertension: Losartan on hold due to GERI. Troponin slightly elevated flat and insignificant recent echo in October 21 shows normal EF 60% with PASP 64 mmHg consistent with moderate pulmonary hypertension. Normal atrial sizes. Patient had left heart cath in 2018. 3. GERI on CKD stage III: Baseline creatinine runs around 1.3-1.4. Admitted with creatinine 2.27. Patient was given IV fluid hydration. Lasix was held. 4. Hypertension and dyslipidemia: On Lipitor. Losartan on hold. Blood pressure is in normal range. Symptomatic slow A-fib/essential HTN/HLD/chronic diastolic CHF/pulmonary hypertension/GERI on CKD 3 5. Anemia of chronic disease in the setting of CKD 3 On iron therapy 6.. GERD ? Continue with PPI 4. Hypothyroidism ? TSH recently at 2.15 ? Continue with Synthroid DVT: Cassandra Charges/Coding Visit Charges Inpatient E&M: 47986 Subs Hosp L2
--- NOTE | 2024-10-31 09:32 | ART_ITS ---
Reason For Study Reason For Study: BLE Weakness Procedure A bilateral lower extremity continuous wave Doppler with analog waveform analysis,segmental pressures,and ankle brachial indexes without exercise. Left Segmental Pressures Left posterior tibial artery = 164mmHg. Left dorsalis pedis artery = 166mmHg. Left digit = 77 mmHg. The left posterior tibial artery waveforms are triphasic. The left dorsalis pedis waveforms are triphasic. Right Segmental Pressures Right brachial= 124mmHg. Right posterior tibial artery = 174mmHg. Right dorsalis pedis artery = 172mmHg. Right digit = 124 mmHg. The right posterior tibial artery waveforms are triphasic. The right dorsalis pedis waveforms are triphasic. Indices The right ankle brachial index by the posterior tibial artery is 1.40. The right ankle brachial index by the dorsalis pedis is 1.39. The right digital-brachial index is 1.00. The left ankle brachial index by the posterior tibial artery is 1.32. The left ankle brachial index by the dorsalis pedis is 1.34. The left digital-brachial index is 0.62. VL/Lower Ext Art Exam w/o Exercis Interpretation Summary Triphasic Doppler waveforms are noted at ankle level bilaterally. Pulse-volume recordings appear diminished at digital level on the left, but satisfactory at all other levels bilaterally. Resting an kle-brachial indices are normal bilaterally. The right digital-brachial index is normal. The left digital-brach ial index is mildly diminished. Arterial flow appears normal at ankle level bilaterally, and at digital level o n the right. There is evidence of mild arterial occlusive disease at digital level on the left. Ordering Physician: Rory Trevizo Referring Physician: Anay Barnard Performed By: Roberto Munoz RVT
[2024-10-31] MEDS: Timolol 0.5% 5ML OPTH.BTL 1 DRP RIGHT EYE ×2 (10:32→20:38)
[2024-10-31] MEDS: Pantoprazole Sodium 20 MG Tablet PO (10:37)
--- NOTE | 2024-10-31 10:52 | CON.PCM.CA_ITS ---
Assessment & Plan Assessment/Plan (1) Paroxysmal atrial fibrillation: PLAN: Patient's primary presenting complaint was extreme fatigability and bilateral lower extremity weakness. She had tried to do a vascular walking treadmill study in September that resulted in a hypertensive urgency and subsequently was diagnosed with atrial fibrillation with RVR. Her previous ECG from August 2024 showed sinus bradycardia. The patient has a history of having this profound fatigue when she is in atrial fibrillation in the past. She had been doing well until recently in her home environment. Now given her profound weakness I would recommend that we try to restore sinus rhythm. The patient will be continued on IV amiodarone. We will decrease her beta- alejandra therapy given her bradycardia when she was in sinus rhythm back in August 2024. We will plan for direct-current cardioversion tomorrow around 1215 hrs. The patient's DNR status will need to be rescinded for 24 hours. I did discuss the procedure risk/benefit and alternatives with the family and they voiced understanding. (2) Essential hypertension: PLAN: Patient's blood pressure has been well-controlled on her current medical therapy. We will need to readjust her meds when she is in sinus rhythm depending on her heart rate and response to various medical therapy. (3) CHF (congestive heart failure): QUALIFIERS: Heart failure type: diastolic Heart failure chronicity: unspecified Qualified Code(s): I50.30 - Unspecified diastolic (congestive) heart failure PLAN: Patient has a history of heart failure with preserved ejection fraction. It appears now that she may be dehydrated. Her N-terminal BNP is 11,000 but she is in atrial fibrillation. Her creatinine is 2.14 which is slightly down from admission. I would recommend we continue to hold her diuretic therapy. Recent echocardiogram in September 2024 showed normal ejection fraction of 60% with pulmonary artery pressures of 64 consistent with moderate pulmonary hypertension. Otherwise normal atrial sizes. PLAN: Plan 1. Will continue IV amiodarone. 2. Will decrease Lopressor to 50 twice daily. Will hold it tomorrow morning. 3. Will plan on direct-current cardioversion tomorrow around 1215 hrs. in the [employer]. 4. N.p.o. after midnight except for meds. HPI Consult Data Date of Consult: 10/31/24 HPI Narrative Reason for Consultation: Weakness and atrial fibs with rapid ventricular response. HPI Narrative: BERNADETTE ELIZABETH, is a 88 F who presents with a several day history of progressive lower extremity bilateral weakness. She also has noted that she is so wiped out from trying to walk around the bed to the bathroom that she has to sit down and rest. She has been documented to have heart rates in the 120 bpm range by her pulse ox and her blood pressure machine. She was recently seen in the office and her Coreg was discontinued and she was switched to metoprolol 50 mg twice daily. Her heart rate was elevated when she was in the emergency department at 100-115 bpm. EKG on admission showed atrial fibrillation with a heart rate of [address]-T wave changes. The patient does carry history of normal coronary arteries by heart catheterization 2017. She has been on uninterrupted Xarelto. She had amiodarone added last evening due to high heart rates. She has continued in atrial fibrillation with a heart rate 100?115. Patient had an ECG in August 2024 that was sinus bradycardia. She subsequent came in after a hypertensive episode in September 2024 and she was in atrial fibrillation at that time. Echocardiogram showed an EF of 60% both atria were normal size RV function was normal there was 2+ TR and pulmonary artery pressure estimated at 64. There was also a small pericardial effusion less than 1 cm. Given the patient's progressive symptoms I would recommend a limited echo be repeated to check her pericardial effusion. [facility] [place] Medical History Hypothyroidism (acquired) Wears glasses Post-menopausal Thyroid disease Gastric reflux Former smoker History of edema History of echocardiogram History of stress test Cardiology follow-up encounter History of CHF (congestive heart failure) Paroxysmal atrial fibrillation Stage 3b chronic kidney disease (CKD) Elevated liver enzymes CKD (chronic kidney disease) stage 4, GFR 15-29 ml/min Stage 3b chronic kidney disease (CKD) Lymphedema of both lower extremities Bilateral lower extremity edema Dyspnea on exertion Pneumonia (03/19/22) Essential hypertension Atrial fibrillation, new onset Positive occult stool blood test Umbilical hernia Osteoporosis Hemorrhage of anus and rectum Glaucoma Acquired keratoderma Anemia Syncope Essential hypertension Sweating Palpitations Near syncope Hernia HLD (hyperlipidemia) Home Medications ?Medication ?Instructions ?Recorded ?Last Taken ?Type atorvastatin 20 mg tablet 20 mg PO QODAY Cholesterol 0 12/06/16 10/28/24 History timolol maleate 0.5 % eye drops 1 drp RIGHT EYE BID ey e drops 12/06/16 10/29/24 History brimonidine 0.15 % eye drops 1 drp ophthalmic (eye) BI D eye 03/25/22 10/29/24 History health levothyroxine 25 mcg tablet 25 mcg PO DAILY thyroid 10/30/24 History losartan 50 mg tablet 50 mg PO BID bp #180 tabs 10/30/24 Rx cholecalciferol (vitamin D3) 50 50 mcg PO BID suppleme nt 05/08/23 10/29/24 History mcg (2,000 unit) capsule mecobalamin (vitamin B12) 1,000 1,000 mcg PO DAILY sup plement 05/08/23 10/29/24 History mcg chewable tablet denosumab 60 mg/mL subcutaneous 60 mg subcut [id number] bone health 08/20/23 04/25/24 History syringe (Prolia) rivaroxaban 15 mg tablet (Xarelto) 15 mg PO DINNER blo od thinner #30 04/25/24 10/29/24 Rx tabs omeprazole 40 mg capsule,delayed 20 mg PO DAILY gerd 1 08/15/23 10/30/24 History release potassium chloride 10 mEq 20 meq PO DAILY 08/27/24 History capsule,extended release Held on 10/25/24. Instructions: Lasix on Hold vibegron 75 mg tablet (Gemtesa) 75 mg PO DAILY bladder 08/27/24 10/30/24 History furosemide 20 mg tablet 20 mg PO DAILY 30 days #0 ta bs 10/13/24 Unknown Rx Held on 10/30/24. Instructions: Ordered metoprolol tartrate 50 mg tablet 100 mg (2 x 50 mg) PO BID #60 tabs 10/25/24 10/30/24 Rx carvedilol 12.5 mg tablet 12.5 mg PO BID blood pressur e 10/30/24 Unknown History Held on 10/30/24. Instructions: Ordered ferrous sulfate 325 mg (65 mg 325 mg PO DAILY 10/30/24 10/29/24 History iron) tablet (Feosol) netarsudil 0.02 %-latanoprost 1 drp ophthalmic (eye) D AILY 10/30/24 10/29/24 History 0.005 % eye drops (Rocklatan) ondansetron HCl 4 mg tablet 4 mg PO Q8H PRN nausea/vom iting 10/30/24 10/30/24 History Allergy/AdvReac Type Severity Reaction Status Date / Time amantadine Allergy Rash Verified 10/30/24 11:17 cephalexin Allergy Rash Verified 10/30/24 11:17 erythromycin base Allergy Rash Verified 10/30/24 11:17 hydrochlorothiazide Allergy Rash Verified 10/30/24 11:17 Iodinated Contrast Media Allergy Rash Verified 10/30/24 11:17 nitrofurantoin (From Allergy Vomiting Verified 10/30/24 11:17 Macrobid) amlodipine (From Norvasc) AdvReac Other Verified 10/30/24 11:17 Family History Mother CAD (coronary artery disease) Father CAD (coronary artery disease) Brother CAD (coronary artery disease) Sister CAD (coronary artery disease) Surgical History History of cardiac catheterization Hx of esophagogastroduodenoscopy History of colonoscopy History of hysteroscopy H/O hernia repair Tubal ligation status History of left heart catheterization (02/05/18) s/p left wrist ORIF Social History household members: none housing: apartment number of children: 4 Smoking Status: Former smoker quit date: 06/29/76 alcohol intake: never substance use type: does not use caffeine: Yes (Occasionally) ROS Constitutional Constitutional: Reports as per HPI Eyes Eyes: Reports systems reviewed and no addt'l complaints, except as documented ENT HEENT: Reports systems reviewed and no addt'l complaints, except as documented Cardiovascular Cardiovascular: Reports as per HPI Respiratory/Chest Respiratory/Chest: Reports as per HPI Gastrointestinal Gastrointestinal: Reports systems reviewed and no addt'l complaints, except as documented Genitourinary Genitourinary: Reports systems reviewed and no addt'l complaints, except as documented Musculoskeletal Musculoskeletal: Reports systems reviewed and no addt'l complaints, except as documented Integumentary Integumentary: Reports systems reviewed and no addt'l complaints, except as documented Neurologic Neurologic: Reports as per HPI Psychiatric Psychiatric: Reports systems reviewed and no addt'l complaints, except as documented Endocrine Endocrinology: Reports systems reviewed and no addt'l complaints, except as documented Hematologic/Lymphatic Hematologic/Lymphatic: Reports systems reviewed and no addt'l complaints, except as documented Allergic/Immunologic Allergic/Immunologic: Reports systems reviewed and no addt'l complaints, except as documented Physical Exam Narrative Frail-appearing but in no apparent distress Const alert and oriented x3 HEENT normocephalic Eyes EOMs intact bilaterally Neck Neck Narrative: JVD noted at the clavicle at 45 degrees. Chest inspection of chest normal Resp normal respiratory effort Auscultation: diminished lung sounds bilateral lower Cardio Rate: regular rate Rhythm: abnormal rhythm irregularly irregular Heart Sounds: S1 normal and S2 normal; Negative for click, gallop or murmur GI normal to inspection, nondistended, normoactive bowel sounds Extremity no pedal edema Neuro Neuro Narrative: Alert and oriented x 3 Psych mental status grossly normal Risk Stratification Risk Stratification Applicable: No Charges/Coding Visit Charges Inpatient E&M: 56560 Init Hosp L3 Objective Data Vital Signs: Vital Signs Temp Pulse Resp BP Pulse Ox O2 Del Method 97.7 F L 96 20 H 112/82 H 97 Room Air 10/31/24 10:05 10/31/24 10:05 10/31/24 10:05 10/31/24 10:05 10/31/24 10:05 10/31/24 10:05 Oxygen Delivery Method Room Air Weight: 144 lb 9.972 oz Body Mass Index (BMI) 26.4 Intake & Output: Intake and Output for Last 24 Hours 10/29/24 10/30/24 10/31/24 23:59 23:59 23:59 Intake Total 49.53 / 186.23 1365.11 / 1365.11 Balance 49.53 / 186.23 1365.11 / 1365.11 Lab / Micro Data Attestation: I reviewed the patient's lab results. 10/31/24 05:27 10/31/24 05:27 Labs: Laboratory Results - last 24 hr 10/30/24 12:08: WBC 7.9, RBC 3.63 L, Hgb 11.5 L, Hct 35.6 L, MCV 98.1, MCH 31.7, MCHC 32.3, RDW Std Deviation 48.1 H, RDW Coeff of Broderick 13.6, Plt Count 229, MPV 11.6, Immature Gran % (Auto) 0.500, Neut % (Auto) 72.3 H, Lymph % (Auto) 18.5 L, [place] % (Auto) 6.7, Eos % (Auto) 1.4, Baso % (Auto) 0.6, Absolute Neuts (auto) 5.7, Absolute Lymphs (auto) 1.47, Nucleated RBC % 0.3, Sodium 137, Potassium 5.0, Chloride 109 H, Carbon Dioxide 17.5 L, Anion Gap 10, BUN 40 H, Creatinine 2.27 H, Estim Creat Clear Calc 15.50 L, Est GFR (MDRD) Non-Af 20 L, BUN/Creatinine Ratio 17.7, Glucose 118 H, Calcium 9.1, Troponin T High Sens 45 H D, [place] [address] H 10/30/24 13:24: Blood Type A POSITIVE, Antibody Screen NEGATIVE 10/30/24 14:15: Urine Color Yellow, Urine Clarity Clear, Urine pH 6.0, Ur Specific [place] 1.020, Urine Protein 30 H, Urine Glucose (UA) Normal, Urine Ketones Negative, Urine Occult Blood Negative, Urine Nitrite Negative, Urine Bilirubin Negative, Urine Urobilinogen Normal, Ur Leukocyte Esterase 100 H, Urine RBC 0 SEEN, Urine WBC 5-10 SEEN, Ur Squamous Epith Cells 0-5 SEEN, Urine Bacteria 3+, Hyaline Casts 0-5 SEEN, Urine Mucus RARE, U Random Total Protein 41.2 H 10/30/24 14:47: Troponin T Hi Sens 2 Hr 50 H 10/30/24 16:49: Troponin T Hi Sens 4Hr 43 H 10/31/24 05:27: WBC 6.6, RBC 3.24 L, Hgb 10.2 L, Hct 32.3 L, MCV 99.7 H, MCH 31.5, MCHC 31.6 L, RDW Std Deviation 48.1 H, RDW Coeff of Broderick 13.6, Plt Count 168, MPV 11.1, Immature Gran % (Auto) 0.500, Neut % (Auto) 62.5, Lymph % (Auto) 24.8, [place] % (Auto) 9.1, Eos % (Auto) 2.3, Baso % (Auto) 0.8, Absolute Neuts (auto) 4.1, Absolute Lymphs (auto) 1.64, Nucleated RBC % 0, Sodium 136, Potassium 4.2, Chloride 110 H, Carbon Dioxide 14.5 L, Anion Gap 12, BUN 38 H, C reatinine 2.14 H, Estim Creat Clear Calc 16.46 L, Est GFR (MDRD) Non-Af 22 L, BUN/Creatinine Ratio 17.6, Glucose 104 H, Calcium 8.7 Micro: Microbiology 10/30/24 13:23 Mucosa - Nose SARS-CoV-2, Influenza & RSV (PCR) - Final Rhythm Strip Rhythm Strip: A-fib Rate: 100 Cardiology Labs/Tests 10/30/24 12:08: WBC 7.9, RBC 3.63 L, Hgb 11.5 L, Hct 35.6 L, MCV 98.1, MCH 31.7, MCHC 32.3, Plt Count 229, MPV 11.6, Immature Gran % (Auto) 0.500, Neut % (Auto) 72.3 H, Lymph % (Auto) 18.5 L, [place] % (Auto) 6.7, Eos % (Auto) 1.4, Baso % (Auto) 0.6, Absolute Neuts (auto) 5.7, Nucleated RBC % 0.3, Sodium 137, Potassium 5.0, Chloride 109 H, Carbon Dioxide 17.5 L, Anion Gap 10, BUN 40 H, C reatinine 2.27 H, Est GFR (MDRD) Non-Af 20 L, BUN/Creatinine Ratio 17.7, Glucose 118 H, Calcium 9.1 10/30/24 14:15: Urine Color Yellow, Urine Clarity Clear, Urine pH 6.0, Ur Specific [place] 1.020, Urine Protein 30 H, Urine Glucose (UA) Normal, Urine Ketones Negative, Urine Occult Blood Negative, Urine Nitrite Negative, Urine Bilirubin Negative, Urine Urobilinogen Normal, Ur Leukocyte Esterase 100 H, Urine RBC 0 SEEN, Urine WBC 5-10 SEEN 10/31/24 05:27: WBC 6.6, RBC 3.24 L, Hgb 10.2 L, Hct 32.3 L, MCV 99.7 H, MCH 31.5, MCHC 31.6 L, Plt Count 168, MPV 11.1, Immature Gran % (Auto) 0.500, Neut % (Auto) 62.5, Lymph % (Auto) 24.8, [place] % (Auto) 9.1, Eos % (Auto) 2.3, Baso % (Auto) 0.8, Absolute Neuts (auto) 4.1, Nucleated RBC % 0, Sodium 136, Potassium 4.2, Chloride 110 H, Carbon Dioxide 14.5 L, Anion Gap 12, BUN 38 H, Creatinine 2.14 H, Est GFR (MDRD) Non-Af 22 L, BUN/Creatinine Ratio 17.6, Glucose 104 H, Calcium 8.7 Rhythm: EKG: ECHO: Stress Test: Cardiac Cath: PCI: CT Surgery: Holter monitor: EPS: PPM: CXR: Chest CT Scan: Radiography Diagnostic Testing: Radiology Impression Chest X-Ray 10/30/24 12:53 IMPRESSION: Small right pleural effusion. Cardiomegaly. Reading Location: [id number]
--- NOTE | 2024-10-31 10:56 | ECHOLC_ITS ---
Reason For Study Reason For Study: afib Procedure This was a limited 2D transthoracic echocardiogram. The study was technically difficult. Exam performed portable in patient room. Left Ventricle Normal left ventricular thickness. Mild global left ventricular systolic dysfunction. Estimated LVEF 40 to 45%. Right Ventricle Normal right ventricle. Atria There is mild biatrial dilatation. Mitral Valve Normal mitral valve. Tricuspid Valve Normal tricuspid valve. Aortic Valve Trisinus/trileaflet aortic valve. Pulmonic Valve The pulmonic valve is not well visualized. Great Vessels The aortic root is not well visualized. Pericardium/Pleural Small organized anterior pericardial effusion versus fat pad. Consider CT scan for further evaluation. MMode/2D Measurements & Calculations LVIDd: 3.2 cm IVSd: 1.1 cm LVOT diam: 2.0 cm LVIDs: 2.5 cm LVPWd: 1.1 cm LVOT area: 3.0 cm2 FS: 22.7 % LAV(MOD-bp): 46.1 ml LVAd ap4: 15.8 cm2 SV(MOD-sp4): 15.3 ml LAV(MOD-bp) Indexed: 27.7 ml/m2 LVLd ap4: 6.5 cm SI(MOD-sp4): 9.2 ml/m2 LAV(MOD-sp2): 50.1 ml EDV(MOD-sp4): 32.2 ml LAV(MOD-sp4): 42.4 ml EDV(sp4-el): 32.5 ml LVAs ap4: 10.9 cm2 LVLs ap4: 5.9 cm ESV(MOD-sp4): 16.9 ml ESV(sp4-el): 16.8 ml EF(MOD-sp4): 47.6 % EF(sp4-el): 48.2 % SV(sp4-el): 15.6 ml LA A4 area: 15.1 cm2 LA dimension(2D): 4.2 cm RA A4 area: 16.0 cm2 ECHO/Echo Limited w/Contrast Interpretation Summary The study was technically difficult. Mild global left ventricular systolic dysfunction. Estimated LVEF 40 to 45%. There is mild biatrial dilatation. Small organized anterior pericardial effusion versus fat pad. Consider CT scan for further evaluation. Ordering Physician: Jacob Kingston Referring Physician: ТАТЬЯНА SCHULER Performed By: Karey Harden RCS
[2024-10-31] MEDS: Metoprolol Tartrate 50 MG Tablet PO ×2 (11:26→20:38)
[2024-10-31] MEDS: Ferrous Sulfate 325 MG Tablet PO (13:31)
[2024-10-31] MEDS: Ondansetron 4 MG/2 ML Vial IV (16:42)
[2024-10-31] MEDS: Rivaroxaban 15 MG Tablet PO (17:29)
[2024-10-31] MEDS: Latanoprost 0.005% 1 Bottle 1 DRP OPHTHALMIC (20:39)
[2024-11-01] VITALS: BP 137/81; PULSE 94; RESP 24; O2SAT 99
[2024-11-01 00:24] VITALS: BP 121/56; PULSE 45; RESP 19; O2SAT 97
[2024-11-01 03:37] VITALS: BP 119/68; PULSE 44; RESP 16; TEMP 36.4; O2SAT 98
[2024-11-01 04:42] VITALS: BMI 27.8
[2024-11-01] MEDS: Levothyroxine 25 MCG TABLET PO (05:47)
[2024-11-01 05:56] LABS: Absolute Lymphocyte Count 1.57 X10^3/uL (0.83-4.51); Absolute Neutrophil Count 3.8 X10^3/uL (2.0-7.7); Basophil# 0.02 X10^3/uL; Basophil% 0.3 % (0-1); Eosinophil# 0.22 X10^3/uL; Eosinophils% 3.5 % (0-5); Hematocrit 29.8 % (37-47); Hemoglobin 9.5 g/dL (12.0-15.0); Lymphocyte # 1.57 X10^3/ul (0.83-4.51); Lymphocyte % 25.2 % (19-41); Mean Corp Hgb Conc 31.9 g/dL (32-36); Mean Corpuscular Hgb 31.5 pg (27.0-32.0); Mean Corpuscular Volume 98.7 fL (81-99); Mean Platelet Vol. 10.8 fl (6.2-12.0); Monocyte# 0.59 X10^3/uL; Monocyte% 9.5 % (0-10); NRBC Flagged by Analyzer 0.3 % (0-5); Neutrophil # 3.82 X10^3/uL (2.7-7.7); Neutrophil % 61.2 % (47-70); Platelet Count 171 K/mm3 (150-450); RBC Distribution Width SD 48.7 fl (35.1-43.9); Red Blood Count 3.02 M/mm3 (4.2-5.4); White Blood Count 6.2 K/mm3 (4.4-11.0)
[2024-11-01 06:28] LABS: Anion Gap 12 (5-15); BUN 35 mg/dL (4-19); BUN/Creat Ratio 16.7 RATIO (10-20); Calcium,Total 9.2 mg/dL (7.6-11.0); Carbon Dioxide 15.1 mmol/L (21.0-32.0); Chloride 112 mmol/L (98-108); Creatinine, Serum 2.09 mg/dL (0.70-1.20); EST Glomerular Filtration Rate 23 (>60); Estimated Creatinine Clearance 17.25 ml/min (50-250); Glucose 101 mg/dL (70-99); Potassium 4.4 mmol/L (3.3-5.1); Sodium Level 139 mmol/L (133-145)
--- NOTE | 2024-11-01 08:43 | PN.CARD_ITS ---
Subjective Subjective The patient spontaneously reverted to normal sinus rhythm at approximately midnight last night. At that point in time she had a significant prolonged sinus node recovery time and subsequently has been bradycardic in the 35-40 bpm range with sinus rhythm. The patient had been on diltiazem, metoprolol, and amiodarone at the time of her conversion. Historically the patient been on a combination of metoprolol plus minus diltiazem in her home environment for rate control in the past. This morning her heart rate is 45 sitting on the bedside commode. She has not been up but she does report she feels better now that she is out of atrial fibrillation. Objective Data Vital Signs: Vital Signs Temp Pulse Resp BP Pulse Ox O2 Del Method 97.5 F L 44 L 16 119/68 98 Room Air 11/01/24 03:37 11/01/24 03:37 11/01/24 03:37 11/01/24 03:37 11/01/24 03:37 11/01/24 03:37 Oxygen Delivery Method Room Air Weight: 151 lb 14.376 oz Body Mass Index (BMI) 27.8 Intake & Output: Intake and Output for Last 24 Hours 10/30/24 10/31/24 11/01/24 23:59 23:59 23:59 Intake Total 49.53 / 186.23 2561.21 / 2677.91 123.38 / 123.38 Balance 49.53 / 186.23 2561.21 / 2677.91 123.38 / 123.38 Lab / Micro Data Attestation: I reviewed the patient's lab results. 11/01/24 05:14 11/01/24 05:14 Labs: Laboratory Results - last 24 hr 11/01/24 05:14: WBC 6.2, RBC 3.02 L, Hgb 9.5 L, Hct 29.8 L, MCV 98.7, MCH 31.5, MCHC 31.9 L, RDW Std Deviation 48.7 H, RDW Coeff of Broderick 14.0, Plt Count 171, MPV 10.8, Immature Gran % (Auto) 0.300, Neut % (Auto) 61.2, Lymph % (Auto) 25.2, [place] % (Auto) 9.5, Eos % (Auto) 3.5, Baso % (Auto) 0.3, Absolute Neuts (auto) 3.8, Absolute Lymphs (auto) 1.57, Nucleated RBC % 0.3, Sodium 139, Potassium 4.4, Chloride 112 H, Carbon Dioxide 15.1 L, Anion Gap 12, BUN 35 H, Creatinine 2.09 H, Estim Creat Clear Calc 17.25 L, Est GFR (MDRD) Non-Af 23 L, BUN/Creatinine Ratio 16.7, Glucose 101 H, Calcium 9.2 Rhythm Strip Rhythm Strip: Sinus Rhythm Rate: 45 Ectopy: PAC(s) Cardiology Labs/Tests 11/01/24 05:14: WBC 6.2, RBC 3.02 L, Hgb 9.5 L, Hct 29.8 L, MCV 98.7, MCH 31.5, MCHC 31.9 L, Plt Count 171, MPV 10.8, Immature Gran % (Auto) 0.300, Neut % (Auto) 61.2, Lymph % (Auto) 25.2, [place] % (Auto) 9.5, Eos % (Auto) 3.5, Baso % (Auto) 0.3, Absolute Neuts (auto) 3.8, Nucleated RBC % 0.3, Sodium 139, Potassium 4.4, Chloride 112 H, Carbon Dioxide 15.1 L, Anion Gap 12, BUN 35 H, C reatinine 2.09 H, Est GFR (MDRD) Non-Af 23 L, BUN/Creatinine Ratio 16.7, Glucose 101 H, Calcium 9.2 Rhythm: EKG: ECHO: Stress Test: Cardiac Cath: PCI: CT Surgery: Holter monitor: EPS: PPM: CXR: Chest CT Scan: Radiography Diagnostic Testing: Radiology Impression Extremity Arterial Study 10/31/24 09:32 Interpretation Summary Triphasic Doppler waveforms are noted at ankle level bilaterally. Pulse-volume recordings appear diminished at digital level on the left, but satisfactory at all other levels bilaterally. Resting ankle-brachial indices are normal bilaterally. The right digital-brachial index is normal. The left digital- brachial index is mildly diminished. Arterial flow appears normal at ankle level bilaterally, and at digital level on the right. There is evidence of mild arterial occlusive disease at digital level on the left. Ordering Physician: Rory Trevizo Referring Physician: Anay Barnard Performed By: Robreto Munoz, T Echocardiogram 10/31/24 10:56 Interpretation Summary The study was technically difficult. Mild global left ventricular systolic dysfunction. Estimated LVEF 40 to 45%. There is mild biatrial dilatation. Small organized anterior pericardial effusion versus fat pad. Consider CT scan for further evaluation. Ordering Physician: Jaocb Kingston Referring Physician: ANAY BARNARD Performed By: Karey Harden [facility] Physical Exam Const alert and oriented x3 HEENT normocephalic Eyes EOMs intact bilaterally Neck no JVD Neck Narrative: Seated at 90 degrees. Chest inspection of chest normal Resp normal respiratory effort Auscultation: diminished lung sounds left lower Cardio Rate: bradycardia Rhythm: regular rhythm Heart Sounds: S1 normal and S2 normal; Negative for click, gallop or murmur Extremity no pedal edema Neuro Neuro Narrative: Alert and oriented x 3 Psych mental status grossly normal Assessment & Plan Assessment/Plan (1) Paroxysmal atrial fibrillation: PLAN: Patient had been in atrial fibrillation since August 2024. She had had progressive weakness and fatigability. She was hospitalized and placed on IV amiodarone along with metoprolol and diltiazem and converted to sinus rhythm overnight. ECG following conversion shows sinus bradycardia at 45 bpm with occasional PACs. Historically the patient had been on metoprolol plus minus diltiazem in her home environment. It is likely this represents sick sinus syndrome but we will need to allow the rate modulating drugs to wear off to see what the full effect of her heart rate will be. If she remains profoundly bradycardic consideration would be given for permanent pacemaker implantation to avoid bradycardia induced recurrence of atrial fibrillation. The patient does have LV dysfunction EF of 40-45% and we will try to reinstitute her Coreg at low-dose once her heart rate recovers. Patient remains on Xarelto 15 mg daily. (2) CHF (congestive heart failure): QUALIFIERS: Heart failure type: diastolic Heart failure chronicity: unspecified Qualified Code(s): I50.30 - Unspecified diastolic (congestive) heart failure PLAN: Patient's previous echocardiogram showed an EF of 60%. Repeat echo this admission shows an EF of 40-45%. The patient is currently tolerating losartan 50 mg twice daily furosemide 20 mg daily which actually is on hold at this time due to her renal issues carvedilol 12.5 mg twice daily is also on hold the plan is to reinstitute that when her heart rate recovers but at a lower dose. It is likely the drop-off in her EF may be related to her atrial fibrillation which is now resolved. Will plan on reevaluating her LV function after 6 weeks of sinus rhythm with a limited echo. (3) GERI (acute kidney injury): PLAN: Renal function is essentially stable over the last 24 hours creatinine 2.14 down to 2.09. Creatinine clearance is 17. This is being monitored by the primary service. Potassium is stable at 4.4. Patient is not on spironolactone at this time. PLAN: Plan 1. Continue to monitor the heart rate as diltiazem, metoprolol, and amiodarone rate modulating effect wears off. 2. Increase activities as tolerated. 3. Will reevaluate the patient in 24 hours to determine further medication adjustments. Charges/Coding Visit Charges Inpatient E&M: 27183 [facility] Hosp L3
--- NOTE | 2024-11-01 09:40 | PN.HOSP_ITS ---
Reason for Visit Reason for Visit: Diagnoses Essential (primary) hypertension (10/30/24) Paroxysmal atrial fibrillation (10/30/24) Unspecified diastolic (congestive) heart failure (10/30/24) Acute kidney failure, unspecified (10/30/24) Objective Data Objective Data Vital Signs: Vital Signs Temp Pulse Resp BP Pulse Ox O2 Del Method 97.5 F L 44 L 16 119/68 98 Room Air 11/01/24 03:37 11/01/24 03:37 11/01/24 03:37 11/01/24 03:37 11/01/24 03:37 11/01/24 08:25 Oxygen Delivery Method Room Air Weight: 151 lb 14.376 oz Body Mass Index (BMI) 27.8 Intake & Output: Intake and Output for Last 24 Hours 10/30/24 10/31/24 11/01/24 23:59 23:59 23:59 Intake Total 49.53 / 186.23 2561.21 / 2677.91 123.38 / 123.38 Balance 49.53 / 186.23 2561.21 / 2677.91 123.38 / 123.38 Lab / Micro Data 11/01/24 05:14 11/01/24 05:14 Labs: Laboratory Results - last 24 hr 11/01/24 05:14: WBC 6.2, RBC 3.02 L, Hgb 9.5 L, Hct 29.8 L, MCV 98.7, MCH 31.5, MCHC 31.9 L, RDW Std Deviation 48.7 H, RDW Coeff of Broderick 14.0, Plt Count 171, MPV 10.8, Immature Gran % (Auto) 0.300, Neut % (Auto) 61.2, Lymph % (Auto) 25.2, [place] % (Auto) 9.5, Eos % (Auto) 3.5, Baso % (Auto) 0.3, Absolute Neuts (auto) 3.8, Absolute Lymphs (auto) 1.57, Nucleated RBC % 0.3, Sodium 139, Potassium 4.4, Chloride 112 H, Carbon Dioxide 15.1 L, Anion Gap 12, BUN 35 H, Creatinine 2.09 H, Estim Creat Clear Calc 17.25 L, Est GFR (MDRD) Non-Af 23 L, BUN/Creatinine Ratio 16.7, Glucose 101 H, Calcium 9.2 Micro: Microbiology 05/04/25 13:23 Mucosa - Nose SARS-CoV-2, Influenza & RSV (PCR) - Final Radiography Diagnostic Testing: Radiology Impression Extremity Arterial Study 10/31/24 09:32 Interpretation Summary Triphasic Doppler waveforms are noted at ankle level bilaterally. Pulse-volume recordings appear diminished at digital level on the left, but satisfactory at all other levels bilaterally. Resting ankle-brachial indices are normal bilaterally. The right digital-brachial index is normal. The left digital- brachial index is mildly diminished. Arterial flow appears normal at ankle level bilaterally, and at digital level on the right. There is evidence of mild arterial occlusive disease at digital level on the left. Ordering Physician: Rory Trevizo Referring Physician: Anay Barnard Performed By: Roberto Munoz, T Echocardiogram 10/31/24 10:56 Interpretation Summary The study was technically difficult. Mild global left ventricular systolic dysfunction. Estimated LVEF 40 to 45%. There is mild biatrial dilatation. Small organized anterior pericardial effusion versus fat pad. Consider CT scan for further evaluation. Ordering Physician: Jacob Kingston Referring Physician: ANAY BARNARD Performed By: Karey Harden RCS Rhythm Strip Rhythm Strip: Sinus Rhythm Rate: 45 Ectopy: PAC(s) Physical Exam Narrative Seen and examined in the presence of patient's daughter. Patient leg weakness is better. No acute chest pain or shortness of breath heart rate is in 40s. She converted overnight. Patient is states she has bilateral leg weakness for about 5 to 6 weeks and cannot walk from her bedroom to living room. Has been mostly restricted to home. Admitted with generalized weakness General: Alert, Oriented x3, Cooperative HEENT: Atraumatic, PERRLA, EOMI, Normocephalic Oral: No Gingival or Mucosal Lesions/ Ulcerations Neck: Supple, No JVD, Negative Carotid Bruits Chest wall/Lungs: Air entry diminished in bilateral lung bases. No crepitation/rhonchi Cardiovascular: Sinus bradycardia with. Systolic murmur Abdomen: Bowel Sounds Present, Soft, Non Tender, Non-Distended : No dysuria. No renal angle tenderness. No suprapubic tenderness. Extremities: No edema, Capillary Refill Less than 3 Seconds Skin: No rashes, No breakdown Musculoskeletal: 4+/5 at bilateral knees and hip joints. ROM mildly restricted, degenerative arthritis of knees. Neurological: DTR 2/4. No acute lateralization sign. Psych/Mental Status: Flat affect. Assessment & Plan Assessment/Plan (1) GERI (acute kidney injury): (2) Paroxysmal atrial fibrillation: PLAN: Plan 88-year-old female being admitted for generalized weakness, looking pale and nauseated. Patient denied chest pain, shortness of breath. Complain of severe leg weakness when ambulating any distance. 1. symptomatic A-fib with mild RVR: Patient is being admitted in PCU. Her heart rate was 130/min. Currently in low 90s. Discussed with the promotions firm accounts manager and amiodarone drip discontinued. Metoprolol 50 mg twice daily. On rivaroxaban. Plan for cardioversion tomorrow. Hold tomorrow morning dose of Lopressor. N.p.o. after midnight. 5: She converted overnight and severe sinus bradycardia. Patient was on combination of metoprolol, intermittent diltiazem and amiodarone drip which was discontinued yesterday. Metoprolol amiodarone on hold. Cardioversion is canceled. She might have sick sinus syndrome/sinus node dysfunction and option of pacemaker also discussed if bradycardia does not resolve 2. CAD, chronic systolic and diastolic heart failure, pulmonary hypertension: Losartan on hold due to GERI. Troponin slightly elevated flat and insignificant recent echo in October 21 shows normal EF 60% with PASP 64 mmHg consistent with moderate pulmonary hypertension. Normal atrial sizes. Patient had left heart cath in 2018. 11/01: Echo shows EF 40 to 45%. Biatrial dilatation. Mild global LV systolic dysfunction. Chest x-ray small right pleural effusion. Patient has mild chronic HFrEF. 3. GERI on CKD stage III: Baseline creatinine runs around 1.3-1.4. Admitted with creatinine 2.27. Patient was given IV fluid hydration. Lasix was held. Patient's creatinine was 2.03 on 10/24. It was 1.43 on 10/13 11/01: BUN/creatinine 35/2.09. Creatinine shows slight improvement. Patient not on nephrotoxic medication 4. Hypertension and dyslipidemia: On Lipitor. Losartan on hold. Blood pressure is in normal range. 5. Anemia of chronic disease in the setting of CKD 3 On iron therapy 6.. GERD ? Continue with PPI 4. Hypothyroidism ? TSH recently at 2.15 ? Continue with Synthroid DVT: Xarelto Microbiology Past 72 Hours 10/30/24 13:23 Mucosa - Nose SARS-CoV-2, Influenza & RSV (PCR) - Final Laboratory Results 11/01/24 05:14: WBC 6.2, RBC 3.02 L, Hgb 9.5 L, Hct 29.8 L, MCV 98.7, MCH 31.5, MCHC 31.9 L, RDW Std Deviation 48.7 H, RDW Coeff of Broderick 14.0, Plt Count 171, MPV 10.8, Immature Gran % (Auto) 0.300, Neut % (Auto) 61.2, Lymph % (Auto) 25.2, Nelson % (Auto) 9.5, Eos % (Auto) 3.5, Baso % (Auto) 0.3, Absolute Neuts (auto) 3.8, Absolute Lymphs (auto) 1.57, Nucleated RBC % 0.3, Sodium 139, Potassium 4.4, Chloride 112 H, Carbon Dioxide 15.1 L, Anion Gap 12, BUN 35 H, Creatinine 2.09 H, Estim Creat Clear Calc 17.25 L, Est GFR (MDRD) Non-Af 23 L, BUN/Creatinine Ratio 16.7, Glucose 101 H, Calcium 9.2 Clinical Impression(s) from Imaging Studies Chest X-Ray 10/30/24 12:53 IMPRESSION: Small right pleural effusion. Cardiomegaly. Reading Location: [facility] Extremity Arterial Study 10/31/24 09:32 Interpretation Summary Triphasic Doppler waveforms are noted at ankle level bilaterally. Pulse-volume recordings appear diminished at digital level on the left, but satisfactory at all other levels bilaterally. Resting ankle-brachial indices are normal bilaterally. The right digital-brachial index is normal. The left digital- brachial index is mildly diminished. Arterial flow appears normal at ankle level bilaterally, and at digital level on the right. There is evidence of mild arterial occlusive disease at digital level on the left. Ordering Physician: Rory Trevizo Referring Physician: Anay Barnard Performed By: Roberto Munoz RVT Echocardiogram 10/31/24 10:56 Interpretation Summary The study was technically difficult. Mild global left ventricular systolic dysfunction. Estimated LVEF 40 to 45%. There is mild biatrial dilatation. Small organized anterior pericardial effusion versus fat pad. Consider CT scan for further evaluation. Ordering Physician: Jacob Kingston Referring Physician: ANAY BARNARD Performed By: Karey Harden RCS Charges/Coding Visit Charges Inpatient E&M: 08473 Subs Hosp L2
[2024-11-01 10:00] VITALS: BP 166/55; PULSE 44; RESP 18; TEMP 36.1; O2SAT 100
[2024-11-01] MEDS: Pantoprazole Sodium 20 MG Tablet PO ×2 (10:09)
[2024-11-01] MEDS: Ferrous Sulfate 325 MG Tablet PO (10:09)
[2024-11-01] MEDS: Timolol 0.5% 5ML OPTH.BTL 1 DRP RIGHT EYE ×2 (10:10→20:43)
[2024-11-01] MEDS: Vibegron 75 MG TABLET PO (12:26)
[2024-11-01] MEDS: BRIMONIDINE 0.15% 5 ML Bottle 1 DRP OPHTHALMIC ×2 (12:32→20:43)
[2024-11-01] MEDS: Rivaroxaban 15 MG Tablet PO (16:38)
[2024-11-01 16:40] VITALS: BP 118/42; PULSE 56; RESP 18; TEMP 36.1; O2SAT 99
[2024-11-01 20:42] VITALS: BP 149/56; PULSE 49; RESP 18; TEMP 35.9; O2SAT 99
[2024-11-01] MEDS: NETARSUDIL MESYLAT/LATANOPROST 2.5 ML DROPS 1 DRP EACH EYE (20:44)
[2024-11-01] MEDS: Atorvastatin Calcium 20 MG Tablet PO (20:45)
[2024-11-02 03:20] VITALS: BP 148/53; PULSE 51; RESP 16; TEMP 35.8; O2SAT 96
[2024-11-02] MEDS: Levothyroxine 25 MCG TABLET PO (03:23)
[2024-11-02 05:38] VITALS: BMI 27.8
[2024-11-02 06:46] LABS: Absolute Lymphocyte Count 1.53 X10^3/uL (0.83-4.51); Basophil# 0.04 X10^3/uL; Basophil% 0.6 % (0-1); Eosinophil# 0.28 X10^3/uL; Eosinophils% 4.4 % (0-5); Hemoglobin 9.5 g/dL (12.0-15.0); Lymphocyte # 1.53 X10^3/ul (0.83-4.51); Lymphocyte % 23.9 % (19-41); Mean Corp Hgb Conc 32.8 g/dL (32-36); Mean Corpuscular Volume 97.6 fL (81-99); Mean Platelet Vol. 10.6 fl (6.2-12.0); Monocyte# 0.55 X10^3/uL; Monocyte% 8.6 % (0-10); NRBC Flagged by Analyzer 0 % (0-5); Neutrophil # 3.99 X10^3/uL (2.7-7.7); Neutrophil % 62.3 % (47-70); Platelet Count 164 K/mm3 (150-450); RBC Distribution Width CV 13.9 % (11.6-14.6); RBC Distribution Width SD 48.3 fl (35.1-43.9); Red Blood Count 2.97 M/mm3 (4.2-5.4); White Blood Count 6.4 K/mm3 (4.4-11.0)
[2024-11-02 07:18] LABS: Anion Gap 10 (5-15); BUN 39 mg/dL (4-19); BUN/Creat Ratio 16.4 RATIO (10-20); Carbon Dioxide 17.1 mmol/L (21.0-32.0); Chloride 111 mmol/L (98-108); Creatinine, Serum 2.35 mg/dL (0.70-1.20); EST Glomerular Filtration Rate 20 (>60); Estimated Creatinine Clearance 15.36 ml/min (50-250); Glucose 97 mg/dL (70-99); Potassium 4.5 mmol/L (3.3-5.1); Sodium Level 139 mmol/L (133-145)
--- NOTE | 2024-11-02 08:56 | PCM.PN.CARD ---
Subjective Subjective Patient is resting comfortably in the recumbent position at 30 degrees in the bed. Heart rate on telemetry documented at 42 and sinus bradycardia. The patient was ambulated in the [place] this morning she complained of leg weakness and her heart rate did go up to 56. The patient has now been off amiodarone diltiazem and metoprolol for 48 hours. Her heart rate continues to be about the same but it is responding to activity. Objective Data Vital Signs: Vital Signs Temp Pulse Resp BP Pulse Ox O2 Del Method 96.4 F L 51 L 16 148/53 H 96 Room Air 11/02/24 03:20 11/02/24 03:20 11/02/24 03:20 11/02/24 03:20 11/02/24 03:20 11/02/24 08:33 Oxygen Delivery Method Room Air Weight: 152 lb 5.431 oz Body Mass Index (BMI) 27.8 Intake & Output: Intake and Output for Last 24 Hours 10/31/24 11/01/24 11/02/24 23:59 23:59 23:59 Intake Total 2561.21 / 2677.91 763.38 / 763.38 Balance 2561.21 / 2677.91 763.38 / 763.38 Lab / Micro Data Attestation: I reviewed the patient's lab results. 11/02/24 06:05 11/02/24 06:05 Labs: Laboratory Results - last 24 hr 11/02/24 06:05: WBC 6.4, RBC 2.97 L, Hgb 9.5 L, Hct 29.0 L, MCV 97.6, MCH 32.0, MCHC 32.8, RDW Std Deviation 48.3 H, RDW Coeff of Broderick 13.9, Plt Count 164, MPV 10.6, Immature Gran % (Auto) 0.200, Neut % (Auto) 62.3, Lymph % (Auto) 23.9, [place] % (Auto) 8.6, Eos % (Auto) 4.4, Baso % (Auto) 0.6, Absolute Neuts (auto) 4.0, Absolute Lymphs (auto) 1.53, Nucleated RBC % 0, Sodium 139, Potassium 4.5, Chloride 111 H, Carbon Dioxide 17.1 L, Anion Gap 10, BUN 39 H, Creatinine 2.35 H, Estim Creat Clear Calc 15.36 L, Est GFR (MDRD) Non-Af 20 L, BUN/Creatinine Ratio 16.4, Glucose 97, Calcium 9.0 Rhythm Strip Rhythm Strip: Sinus Rhythm Rate: 45 Ectopy: PAC(s) Cardiology Labs/Tests 11/02/24 06:05: WBC 6.4, RBC 2.97 L, Hgb 9.5 L, Hct 29.0 L, MCV 97.6, MCH 32.0, MCHC 32.8, Plt Count 164, MPV 10.6, Immature Gran % (Auto) 0.200, Neut % (Auto) 62.3, Lymph % (Auto) 23.9, [place] % (Auto) 8.6, Eos % (Auto) 4.4, Baso % (Auto) 0.6, Absolute Neuts (auto) 4.0, Nucleated RBC % 0, Sodium 139, Potassium 4.5, Chloride 111 H, Carbon Dioxide 17.1 L, Anion Gap 10, BUN 39 H, Creatinine 2.35 H, Est GFR (MDRD) Non-Af 20 L, BUN/Creatinine Ratio 16.4, Glucose 97, Calcium 9.0 Rhythm: EKG: ECHO: Stress Test: Cardiac Cath: PCI: CT Surgery: Holter monitor: EPS: PPM: CXR: Chest CT Scan: Physical Exam Narrative Patient resting comfortably in recumbent position at 30 degrees in the bed. Const alert and oriented x3 HEENT normocephalic Eyes EOMs intact bilaterally Neck no JVD Chest inspection of chest normal Resp normal respiratory effort Auscultation: diminished lung sounds bilateral lower Cardio Rate: bradycardia Rhythm: regular rhythm Heart Sounds: S1 normal and S2 normal; Negative for click, gallop or murmur Extremity no pedal edema Neuro Neuro Narrative: Alert and oriented x 3 Psych mental status grossly normal Assessment & Plan Assessment/Plan (1) Paroxysmal atrial fibrillation: PLAN: Patient currently remains in sinus bradycardia at 45 bpm on telemetry. It does go as low as the mid 30s at times. But it also increases up in the mid to upper 50s with activity. She is still washing out the combination of the diltiazem, metoprolol, and amiodarone given her renal insufficiency. Patient is tolerating the Xarelto without incident. At this point time would recommend continue to monitor for another 24 hours and try and increase her activities. It is highly likely this is new accounts banking representative of sick sinus syndrome and the patient very well may wind up with a pacemaker eventually. However, she is a DNR and we need to discuss this in detail with the family. (2) CHF (congestive heart failure): QUALIFIERS: Heart failure type: diastolic Heart failure chronicity: unspecified Qualified Code(s): I50.30 - Unspecified diastolic (congestive) heart failure PLAN: Patient's VIET inhibitor therapy has to be held due to her worsening renal insufficiency. She is on no diuretic therapy but does not appear to be congested either by physical exam or symptoms. Will add hydralazine and nitrates to her medical therapy. Will need further discussion with the family concerning pacemaker implantation to help us better control her heart failure and bradycardia. (3) GERI (acute kidney injury): PLAN: Patient's creatinine has increased over the last 24 hours. She is not on any diuretic therapy her LV ejection fraction is known to be 40-45% which is a drop off since she has been in atrial fibrillation and probably rate related. Now that she is in sinus rhythm although it is significantly bradycardic we will try and add afterload reduction therapy. We cannot add beta-alejandra therapy given her rate. PLAN: Plan 1. Will add hydralazine and nitrates for afterload reduction therapy. 2. Continue to hold diuretic therapy at this time. 3. Will continue to monitor renal function and heart rate. 4. Within the next 24 hours need to make a decision about permanent pacemaker implantation versus continued medical management. 5. As long as the patient remains in sinus rhythm although bradycardic would consider discharge to home in the next 24 hours provided her heart rate appropriately increases with activity and she is not have any symptoms of near syncope or syncope. 6. The patient will need to be reevaluated in 1 week in the office and would need a limited echocardiogram to reevaluate her LV function at 6 weeks. 7. Will have a discussion with the family in the next 24 hours concerning the aggressiveness of therapy that they feel is appropriate as far as pacing is concerned. Charges/Coding Visit Charges Inpatient E&M: 98329 [facility] Hosp L3
[2024-11-02 09:20] VITALS: BP 154/43; PULSE 41; RESP 18; TEMP 36.6; O2SAT 97
[2024-11-02] MEDS: Timolol 0.5% 5ML OPTH.BTL 1 DRP RIGHT EYE ×2 (09:47→21:19)
[2024-11-02] MEDS: BRIMONIDINE 0.15% 5 ML Bottle 1 DRP OPHTHALMIC ×2 (09:48→21:18)
[2024-11-02] MEDS: Vibegron 75 MG TABLET PO (09:49)
--- NOTE | 2024-11-02 11:34 | CASEMGMT ---
Discharge Planning A list of?HH providers including quality and resource use data and consistent with the patient's preferred geographic region, medical needs, and insurance network was created in [employer] Guide.? This list was provided to the RN DENA. Margarette Booker, Discharge Planning Asst.
[2024-11-02] MEDS: Ferrous Sulfate 325 MG Tablet PO (11:38)
--- NOTE | 2024-11-02 14:34 | CASEMGMT ---
JUMA CM in to discuss needs at discharge. Patient and daughter were discussing possible TCU at discharge. JUMA FERNANDES reviewed therapy notes and patient was ambulating 180feet with therapy and recommending outpatient therapy. JUMA FERNANDES updated patient and family that her insurance would not approved stay at TCU. JUMA FERNANDES discussed possible HHC vs outpatient therapy. JUMA FERNANDES provided HHC list to patient and daughter. Patient and daughter would prefer HHC and [facility] as their first choice. Patient and daughter had no further questions or concerns. JUMA FERNANDES made referral to [facility], awaiting acceptance. CM will continue to follow this patient and plan for a safe discharge.
[2024-11-02 15:20] VITALS: BP 167/57; PULSE 43; RESP 18; TEMP 36.8; O2SAT 99
--- NOTE | 2024-11-02 17:04 | PN.HOSP_ITS ---
Reason for Visit Reason for Visit: Diagnoses Essential (primary) hypertension (10/30/24) Paroxysmal atrial fibrillation (10/30/24) Unspecified diastolic (congestive) heart failure (10/30/24) Acute kidney failure, unspecified (10/30/24) Objective Data Objective Data Vital Signs: Vital Signs Temp Pulse Resp BP Pulse Ox O2 Del Method 98.2 F 43 L 18 167/57 H 99 Room Air 11/02/24 15:20 11/02/24 15:20 11/02/24 15:20 11/02/24 15:20 11/02/24 15:20 11/02/24 15:20 Oxygen Delivery Method Room Air Weight: 152 lb 5.431 oz Body Mass Index (BMI) 27.8 Intake & Output: Intake and Output for Last 24 Hours 10/31/24 11/01/24 11/02/24 23:59 23:59 23:59 Intake Total 2561.21 / 2677.91 763.38 / 763.38 240 / 240 Balance 2561.21 / 2677.91 763.38 / 763.38 240 / 240 Lab / Micro Data 11/02/24 06:05 11/02/24 06:05 Labs: Laboratory Results - last 24 hr 11/02/24 06:05: WBC 6.4, RBC 2.97 L, Hgb 9.5 L, Hct 29.0 L, MCV 97.6, MCH 32.0, MCHC 32.8, RDW Std Deviation 48.3 H, RDW Coeff of Broderick 13.9, Plt Count 164, MPV 10.6, Immature Gran % (Auto) 0.200, Neut % (Auto) 62.3, Lymph % (Auto) 23.9, [place] % (Auto) 8.6, Eos % (Auto) 4.4, Baso % (Auto) 0.6, Absolute Neuts (auto) 4.0, Absolute Lymphs (auto) 1.53, Nucleated RBC % 0, Sodium 139, Potassium 4.5, Chloride 111 H, Carbon Dioxide 17.1 L, Anion Gap 10, BUN 39 H, Creatinine 2.35 H , Estim Creat Clear Calc 15.36 L, Est GFR (MDRD) Non-Af 20 L, BUN/Creatinine Ratio 16.4, Glucose 97, Calcium 9.0 Micro: Microbiology 10/30/24 13:23 Mucosa - Nose SARS-CoV-2, Influenza & RSV (PCR) - Final Rhythm Strip Rhythm Strip: Sinus Rhythm Rate: 45 Ectopy: PAC(s) Physical Exam Narrative Seen and examined in the presence of patient's daughter. Patient leg weakness is better. PT is working with the patient. No acute chest pain or shortness of breath. Heart rate is better, high 40s. She converted to sinus rhythm 2 days ago. Patient is states she has bilateral leg weakness for about 5 to 6 weeks and cannot walk from her bedroom to living room. Has been mostly restricted to home. Admitted with generalized weakness General: Alert, Oriented x3, Cooperative HEENT: Atraumatic, PERRLA, EOMI, Normocephalic Oral: No Gingival or Mucosal Lesions/ Ulcerations Neck: Supple, No JVD, Negative Carotid Bruits Chest wall/Lungs: Air entry diminished in bilateral lung bases. No crepitation/rhonchi Cardiovascular: Sinus bradycardia with. Systolic murmur Abdomen: Bowel Sounds Present, Soft, Non Tender, Non-Distended : No dysuria. No renal angle tenderness. No suprapubic tenderness. Extremities: No edema, Capillary Refill Less than 3 Seconds Skin: No rashes, No breakdown Musculoskeletal: 4+/5 at bilateral knees and hip joints. ROM mildly restricted, degenerative arthritis of knees. Neurological: DTR 2/4. No acute lateralization sign. Psych/Mental Status: Flat affect. Assessment & Plan Assessment/Plan (1) GERI (acute kidney injury): (2) Paroxysmal atrial fibrillation: PLAN: Plan 88-year-old female being admitted for generalized weakness, looking pale and nauseated. Patient denied chest pain, shortness of breath. Complain of severe leg weakness when ambulating any distance. 1. symptomatic A-fib with mild RVR: Patient is being admitted in PCU. Her heart rate was 130/min. Currently in low 90s. Discussed with the supervisor hot dip tinning and amiodarone drip discontinued. Metoprolol 50 mg twice daily. On rivaroxaban. Plan for cardioversion tomorrow. Hold tomorrow morning dose of Lopressor. N.p.o. after midnight. 5/6: She converted overnight and severe sinus bradycardia. Patient was on combination of metoprolol, intermittent diltiazem and amiodarone drip which was discontinued yesterday. Metoprolol amiodarone on hold. Cardioversion is canceled. She might have sick sinus syndrome/sinus node dysfunction and option of pacemaker also discussed if bradycardia does not resolve 11/02: Heart rate is improving. Discussed with the patient's daughter and supervisor hot dip tinning. Plan is anticipating discharge tomorrow with follow-up in the cardiology office after 1 week to discuss the options about pacemaker. 2. CAD, chronic systolic and diastolic heart failure, pulmonary hypertension: Losartan on hold due to GERI. Troponin slightly elevated flat and insignificant recent echo in October 21 shows normal EF 60% with PASP 64 mmHg consistent with moderate pulmonary hypertension. Normal atrial sizes. Patient had left heart cath in 2017. 11/01: Echo shows EF 40 to 45%. Biatrial dilatation. Mild global LV systolic dysfunction. Chest x-ray small right pleural effusion. Patient has mild chronic HFrEF and HFpEF. 11/02: Echo finding discussed with the patient's daughter. 3. GERI on CKD stage III: Baseline creatinine runs around 1.3-1.4. Admitted with creatinine 2.27. Patient was given IV fluid hydration. Lasix was held. Patient's creatinine was 2.03 on 10/24. It was 1.43 on 10/13 11/01: BUN/creatinine 35/2.09. Creatinine shows slight improvement. Patient not on nephrotoxic medication 11/02: Creatinine is 2.35. Nephrotoxic medications including diuretic, HCTZ and VIET/ARB are contraindicated. 4. Hypertension and dyslipidemia: On Lipitor. Losartan on hold. Blood pressure is in normal range. 11/02: Blood pressure is mildly elevated. Hydralazine 25 mg 3 times daily ordered. 5. Anemia of chronic disease in the setting of CKD 3 On iron therapy 6.. GERD ? Continue with PPI 4. Hypothyroidism ? TSH recently at 2.15 ? Continue with Synthroid DVT: Xarelto Microbiology Past 72 Hours 10/30/24 13:23 Mucosa - Nose SARS-CoV-2, Influenza & RSV (PCR) - Final Laboratory Results 11/02/24 06:05: WBC 6.4, RBC 2.97 L, Hgb 9.5 L, Hct 29.0 L, MCV 97.6, MCH 32.0, MCHC 32.8, RDW Std Deviation 48.3 H, RDW Coeff of Broderick 13.9, Plt Count 164, MPV 10.6, Immature Gran % (Auto) 0.200, Neut % (Auto) 62.3, Lymph % (Auto) 23.9, [place] % (Auto) 8.6, Eos % (Auto) 4.4, Baso % (Auto) 0.6, Absolute Neuts (auto) 4.0, Absolute Lymphs (auto) 1.53, Nucleated RBC % 0, Sodium 139, Potassium 4.5, Chloride 111 H, Carbon Dioxide 17.1 L, Anion Gap 10, BUN 39 H, Creatinine 2.35 H , Estim Creat Clear Calc 15.36 L, Est GFR (MDRD) Non-Af 20 L, BUN/Creatinine Ratio 16.4, Glucose 97, Calcium 9.0 Clinical Impression(s) from Imaging Studies Chest X-Ray 10/30/24 12:53 IMPRESSION: Small right pleural effusion. Cardiomegaly. Reading Location: [facility] Extremity Arterial Study 10/31/24 09:32 Interpretation Summary Triphasic Doppler waveforms are noted at ankle level bilaterally. Pulse-volume recordings appear diminished at digital level on the left, but satisfactory at all other levels bilaterally. Resting ankle-brachial indices are normal bilaterally. The right digital-brachial index is normal. The left digital- brachial index is mildly diminished. Arterial flow appears normal at ankle level bilaterally, and at digital level on the right. There is evidence of mild arterial occlusive disease at digital level on the left. Ordering Physician: Rory Trevizo Referring Physician: Anay Barnard Performed By: Roberto Munoz RVT Echocardiogram 10/31/24 10:56 Interpretation Summary The study was technically difficult. Mild global left ventricular systolic dysfunction. Estimated LVEF 40 to 45%. There is mild biatrial dilatation. Small organized anterior pericardial effusion versus fat pad. Consider CT scan for further evaluation. Ordering Physician: Jacob Kingston Referring Physician: ANAY BARNARD Performed By: Karey Harden RCS Charges/Coding Visit Charges Inpatient E&M: 84555 Subs Hosp L2
[2024-11-02] MEDS: Rivaroxaban 15 MG Tablet PO (17:45)
[2024-11-02 21:20] VITALS: BP 177/64; PULSE 55; RESP 16; TEMP 36.5; O2SAT 98
[2024-11-02] MEDS: hydrALAZINE 25 MG Tablet PO (21:20)
[2024-11-02] MEDS: 0.9% Saline Lock 10 ML Syringe IV (21:21)
[2024-11-02] MEDS: NETARSUDIL MESYLAT/LATANOPROST 2.5 ML DROPS 1 DRP EACH EYE (21:21)
[2024-11-03 03:04] VITALS: BMI 27.8
[2024-11-03] MEDS: Levothyroxine 25 MCG TABLET PO (06:50)
[2024-11-03 06:51] VITALS: BP 176/48; PULSE 43
[2024-11-03] MEDS: hydrALAZINE 25 MG Tablet PO (06:51)
[2024-11-03 09:20] VITALS: BP 163/60; PULSE 46; RESP 18; TEMP 36.3; O2SAT 100
[2024-11-03] MEDS: BRIMONIDINE 0.15% 5 ML Bottle 1 DRP OPHTHALMIC (09:22)
[2024-11-03] MEDS: Vibegron 75 MG TABLET PO (09:22)
[2024-11-03] MEDS: Pantoprazole Sodium 20 MG Tablet PO (09:22)
[2024-11-03] MEDS: Timolol 0.5% 5ML OPTH.BTL 1 DRP RIGHT EYE (09:22)
--- NOTE | 2024-11-03 09:34 | PCM.PN.CARD ---
Subjective Subjective Patient reports she has been up to the bathroom without lightheadedness or dizziness. She also reports that her energy level has increased and she feels much less fatigued than when she was in her home environment prior to admission. Her heart rate did go up to the 55-56 bpm when she was up in the room. Resting heart rate remains in the 40-45 bpm range. Objective Data Vital Signs: Vital Signs Temp Pulse Resp BP Pulse Ox O2 Del Method 97.3 F L 46 L 18 163/60 H 100 Room Air 11/03/24 09:20 11/03/24 09:20 11/03/24 09:20 11/03/24 09:20 11/03/24 09:20 11/03/24 09:20 Oxygen Delivery Method Room Air Weight: 152 lb 1.903 oz Body Mass Index (BMI) 27.8 Intake & Output: Intake and Output for Last 24 Hours 11/01/24 11/02/24 11/03/24 23:59 23:59 23:59 Intake Total 763.38 / 763.38 480 / 680 300 / 300 Balance 763.38 / 763.38 480 / 680 300 / 300 Lab / Micro Data Attestation: I reviewed the patient's lab results. 11/02/24 06:05 11/02/24 06:05 Rhythm Strip Rhythm Strip: Sinus Rhythm Rate: 45 Ectopy: PAC(s) Cardiology Labs/Tests Rhythm: EKG: ECHO: Stress Test: Cardiac Cath: PCI: CT Surgery: Holter monitor: EPS: PPM: CXR: Chest CT Scan: Physical Exam Narrative Resting comfortably with come position in bed at 30 degrees. Const alert and oriented x3 HEENT normocephalic Eyes EOMs intact bilaterally Neck no JVD Chest inspection of chest normal Resp normal respiratory effort Auscultation: diminished lung sounds left lower; Negative for rales Cardio Rate: bradycardia Rhythm: regular rhythm Heart Sounds: S1 normal and S2 normal; Negative for click, gallop or murmur Extremity no pedal edema Psych mental status grossly normal Assessment & Plan Assessment/Plan (1) Paroxysmal atrial fibrillation: PLAN: Patient converted to sinus bradycardia after IV amiodarone, diltiazem, and metoprolol. When in atrial fibrillation her rate was difficult to control however in sinus rhythm her rate has been slow in the 35-45 bpm range. The patient denies any syncope or near syncope denies any dizziness denies any significant sensations with change of position. She has been up to the bathroom without any issues. She has noticed her increased exercise tolerance and less fatigue since conversion to sinus rhythm. The patient had been in atrial fibrillation since August 2024. The patient carries a history of bradycardia on diltiazem and Coreg in the past. At this point in time she has been off rate modulating drugs for 72 hours. Given the fact she has no syncope or near syncope and is tolerating her current heart rate and she is a DNR CCA I do not feel that permanent pacemaker is indicated at this point in time. I had a long discussion with the patient and her family in detail yesterday outlining the pros and cons given her DNR status as well as her age of 88 with placement of a pacemaker when she is actually feeling better in the sinus bradycardia. This will also give us time to see if the rate modulating drugs may wear off more over the next several days. The patient be reevaluated in our office in 1 week and as needed. (2) Chronic kidney disease: QUALIFIERS: Chronic kidney disease stage: stage 4 (GFR 15-29) Qualified Code(s): N18.4 - Chronic kidney disease, stage 4 (severe) PLAN: Patient's creatinine today was 2.35 which is slightly up this needs to be reevaluated in 1 week. I would recommend she continue her current medical therapy. She does have a history of LV dysfunction EF in the 40-45% range which is probably rate related to her atrial fibrillation. Historically her EF had been in the 60% range. We may need to interrupt her Lasix depending on her weight and renal function when she is reevaluated in office in 1 week. (3) Essential hypertension: PLAN: Patient has systolic hypertension in the 160?170 range. Given her bradycardia I would not recommend we aggressively treat the systolic hypertension until her heart rate is more stabilized. Once that occurs a nonrate modulating medication may be indicated. Consideration may be given the either using hydrochlorothiazide or hydralazine or amlodipine. PLAN: Plan 1. Patient to continue her current medical therapy. 2. Patient can be discharged home to the care of her family and home health care from a cardiovascular standpoint. 3. Patient needs to be reevaluated in the [facility] office in 1 week. At that time she will have an ECG done as well as a basic metabolic panel. If she is stable from a vital sign standpoint a Holter monitor for 48 hours will be ordered to check her heart rate response in her home environment. 4. Once we have her medications stabilized heart rate stabilized then an echocardiogram should be done at 6 weeks to reevaluate her LV function. This should be a limited echo. 5. At this point in time I do not feel that permanent pacing is indicated but this may have to be revisited depending on her response to current therapy and her activity levels in her home environment. Charges/Coding Visit Charges Inpatient E&M: 71965 [facility] Hosp L3
--- NOTE | 2024-11-03 10:02 | PCM.DC ---
Discharge Instructions Diet Discharge Diet: Low fat / Low cholesterol and 2000 mg Sodium Diet DC O2, CPAP, BIPAP needs Home O2 Discharge instructions: No Dressing / Incision Discharge Activity: Return to Normal Activity Weight Bearing Status: Weight bearing as tolerated Dressing / Incision Call your doctor if you observe: Fever of 101 or Higher, Coldness, Increased Pain, Numbness or Tingling, Change in Color, Inability to urinate, Inability to have a bowel movement, Shortness of breath, Dizziness, Fainting spells, Swelling in the ankles, Chest pain, Prolonged hiccupping, Increased palpitations (irregular heartbeat) and Calf discomfort Follow Up Care When: IN 2 WEEKS Test Results: Test results from this visit will be discussed in further detail at your follow-up appointment, if applicable. Discharge Plan Admission Admit Date/Time: 10/30/24 17:20 Attending Provider: Rory Trevizo Primary Care Provider: Anay Barnard Consulting Providers: Pb Granado; Nirav Cain Discharge Orders/Prescriptions Prescriptions: Continued levothyroxine 25 mcg tablet 25 mcg PO DAILY brimonidine 0.15 % drops 1 drp ophthalmic (eye) BID Rx Instructions: right eye omeprazole 40 mg capsule,delayed release(DR/EC) 20 mg PO DAILY Prolia 60 mg/mL syringe 60 mg subcut [id number] Patient Comments: STARTS END UP SEPTEMBER. mecobalamin (vitamin B12) 1,000 mcg tablet,chewable 1,000 mcg PO DAILY cholecalciferol (vitamin D3) 50 mcg (2,000 unit) capsule 50 mcg PO BID atorvastatin 20 MG tablet 20 mg PO QODAY Patient Comments: CHOLESTEROL timolol maleate 1 DROP drops 1 drp RIGHT EYE BID Patient Comments: EYE DROPS furosemide 20 mg tablet 20 mg PO DAILY 30 Days Qty: 0 0RF ferrous sulfate [Feosol] 325 mg (65 mg iron) tablet 325 mg PO DAILY ondansetron HCl 4 mg tablet 4 mg PO Q8H PRN (Reason: nausea/vomiting) Rocklatan 0.02-0.005 % drops 1 drp ophthalmic (eye) DAILY Gemtesa 75 mg tablet 75 mg PO DAILY Xarelto 15 mg tablet 15 mg PO DINNER Qty: 30 11RF Rx Instructions: must administer with evening meal Held potassium chloride 10 mEq capsule, extended release 20 meq PO DAILY Hold Instructions: hold until she sees Dr. Kingston Rx Instructions: take 2 capsules by mouth once daily losartan 50 mg tablet 50 mg PO BID Qty: 180 4RF Hold Instructions: Hold until sees Dr. Kingston Discontinued carvedilol 12.5 mg tablet 12.5 mg PO BID metoprolol tartrate 50 mg tablet 100 mg PO BID Qty: 60 6RF Referrals / Follow Up: Anay Barnard MD [Primary Care Provider] - Within 2 Weeks Jacob Kingston MD [Med Staff - Active Staff] - In 1 Week (Follow-up with [facility]) Disposition Disposition (needs filled in before D/C Order can be placed): Home, Self Care
--- NOTE | 2024-11-03 11:07 | DS.PCM_ITS ---
Providers Date of Admission: 10/30/24 Date of Discharge: 11/03/24 Primary Care Physician: Dr. Татьяна Barnard MD Consultations 10/30/24 18:25 Consult: Cardiology Routine Consulting Provider: Pb Granado Reason for Consult: symptomatic slow afib EMERGENT Consult: No Notified: Yes Date Notified: 10/30/24 Time Notified: 18:28 Method of Notification: Text Reason For Visit: AFIB WITH RENAL FAILURE Diagnosis Discharge Diagnosis (1) Paroxysmal atrial fibrillation: Status: Acute Code(s): I48.0 - Paroxysmal atrial fibrillation (2) Chronic kidney disease: Status: Chronic Code(s): N18.9 - Chronic kidney disease, unspecified Qualifiers: Chronic kidney disease stage: stage 4 (GFR 15-29) Qualified Code(s): N 18.4 - Chronic kidney disease, stage 4 (severe) (3) Essential hypertension: Status: Chronic Code(s): I10 - Essential (primary) hypertension Plan 88-year-old female being admitted for generalized weakness, looking pale and nauseated. Patient denied chest pain, shortness of breath. Complain of severe leg weakness when ambulating any distance. 1. symptomatic A-fib with mild RVR: Patient is being admitted in PCU. Her heart rate was 130/min. Currently in low 90s. Discussed with the grinder and honer operator automatic and amiodarone drip discontinued. Metoprolol 50 mg twice daily. On rivaroxaban. Plan for cardioversion tomorrow. Hold tomorrow morning dose of Lopressor. N.p.o. after midnight. 11/01: She converted overnight and severe sinus bradycardia. Patient was on combination of metoprolol, intermittent diltiazem and amiodarone drip which was discontinued yesterday. Metoprolol amiodarone on hold. Cardioversion is canceled. She might have sick sinus syndrome/sinus node dysfunction and option of pacemaker also discussed if bradycardia does not resolve 11/02: Heart rate is improving. Discussed with the patient's daughter and grinder and honer operator automatic. Plan is anticipating discharge tomorrow with follow-up in the cardiology office after 1 week to discuss the options about pacemaker. 11/03: Heart rate is 4600. BP 163/100. Discussed with grinder and honer operator automatic Dr. Jacob Kingston. He said patient should be off of all beta-alejandra and blood pressure medications. Carvedilol metoprolol amiodarone discontinued. Losartan on hold. Hold potassium supplement. Patient was educated that if systolic BP is 150-160 that it is okay does not matter need to be lowered because she has bradycardia. Follow with Dr. James using 7 to 10 days with BMP 2. CAD, chronic systolic and diastolic heart failure, pulmonary hypertension: Losartan on hold due to GERI. Troponin slightly elevated flat and insignificant recent echo in October 21 shows normal EF 60% with PASP 64 mmHg consistent with moderate pulmonary hypertension. Normal atrial sizes. Patient had left heart cath in 2017. 11/01: Echo shows EF 40 to 45%. Biatrial dilatation. Mild global LV systolic dysfunction. Chest x-ray small right pleural effusion. Patient has mild chronic HFrEF and HFpEF. 11/02: Echo finding discussed with the patient's daughter. 3. GERI on CKD stage 4: Baseline creatinine runs around 1.3-1.4. Admitted with creatinine 2.27. Patient was given IV fluid hydration. Lasix was held. Patient's creatinine was 2.03 on 10/24. It was 1.43 on 10/13 11/01: BUN/creatinine 35/2.09. Creatinine shows slight improvement. Patient not on nephrotoxic medication 11/02: Creatinine is 2.35. Nephrotoxic medications including diuretic, HCTZ and VIET/ARB are contraindicated. 11/03: Creatinine 2.35, estimated creatinine clearance 15.36 mL. 4. Hypertension and dyslipidemia: On Lipitor. Losartan on hold. Blood pressure is in normal range. 11/02: Blood pressure is mildly elevated. Hydralazine 25 mg 3 times daily ordered. She has CKD stage IV. 5. Anemia of chronic disease in the setting of CKD 3 On iron therapy 6.. GERD ? Continue with PPI 4. Hypothyroidism ? TSH recently at 2.15 ? Continue with Synthroid DVT: Xarelto Discharge medication reconciliation done. Discharge follow-up instructions completed. Discharge process discussed with the patient and all questions were answered to patient's satisfaction. Follow with PCP in 1 to 2 weeks Total time spent, exact 35 minutes on discharge meds reconciliation, examination, coordination of care with nurses and ancillary staff, review of imaging and blood test and discussion with the patient on follow-up instructions. Clinical Impression(s) from Imaging Studies Chest X-Ray 10/30/24 12:53 IMPRESSION: Small right pleural effusion. Cardiomegaly. Reading Location: [facility] Extremity Arterial Study 10/31/24 09:32 Interpretation Summary Triphasic Doppler waveforms are noted at ankle level bilaterally. Pulse-volume recordings appear diminished at digital level on the left, but satisfactory at all other levels bilaterally. Resting ankle-brachial indices are normal bilaterally. The right digital-brachial index is normal. The left digital- brachial index is mildly diminished. Arterial flow appears normal at ankle level bilaterally, and at digital level on the right. There is evidence of mild arterial occlusive disease at digital level on the left. Ordering Physician: Rory Trevizo Referring Physician: Татьяна Barnard Performed By: Roberto Munoz RVT Echocardiogram 10/31/24 10:56 Interpretation Summary The study was technically difficult. Mild global left ventricular systolic dysfunction. Estimated LVEF 40 to 45%. There is mild biatrial dilatation. Small organized anterior pericardial effusion versus fat pad. Consider CT scan for further evaluation. Ordering Physician: Jacob Kingston Referring Physician: ТАТЬЯНА BARNARD Performed By: Karey Harden RCS Medications at Discharge Home Medications atorvastatin 20 mg tablet 20 mg PO QODAY Cholesterol 12/06/16 timolol maleate 0.5 % eye drops 1 drp RIGHT EYE BID eye drops 12/06/16 brimonidine 0.15 % eye drops 1 drp ophthalmic (eye) BID eye health 03/25/22 levothyroxine 25 mcg tablet 25 mcg PO DAILY thyroid 03/25/22 losartan 50 mg tablet 50 mg PO BID bp #180 tabs 07/11/22 Held on 11/03/24. Instructions: Hold until sees Dr. Kingston cholecalciferol (vitamin D3) 50 mcg (2,000 unit) capsule 50 mcg PO BID supplement 05/08/23 mecobalamin (vitamin B12) 1,000 mcg chewable tablet 1,000 mcg PO DAILY supplement 05/08/23 denosumab 60 mg/mL subcutaneous syringe (Prolia) 60 mg subcut [id number] bone health 08/20/23 rivaroxaban 15 mg tablet (Xarelto) 15 mg PO DINNER blood thinner #30 tabs 04/25/24 omeprazole 40 mg capsule,delayed release 20 mg PO DAILY gerd 06/14/24 potassium chloride 10 mEq capsule,extended release 20 meq PO DAILY 08/27/24 Held on 11/03/24. Instructions: hold until she sees Dr. Kingston vibegron 75 mg tablet (Gemtesa) 75 mg PO DAILY bladder 08/27/24 furosemide 20 mg tablet 20 mg PO DAILY 30 days #0 tabs 10/13/24 ferrous sulfate 325 mg (65 mg iron) tablet (Feosol) 325 mg PO DAILY 10/30/24 netarsudil 0.02 %-latanoprost 0.005 % eye drops (Rocklatan) 1 drp ophthalmic (eye) DAILY 10/30/24 ondansetron HCl 4 mg tablet 4 mg PO Q8H PRN nausea/vomiting 10/30/24 Physical Exam Narrative Seen and examined in the presence of patient's daughter. Patient leg weakness is better. PT is working with the patient. Patient does not need [facility] and does not want to go. No acute chest pain or shortness of breath. Heart rate is better, high 40s. She converted to sinus rhythm 3 days ago. Physical exam General: Alert, Oriented x3, Cooperative HEENT: Atraumatic, PERRLA, EOMI, Normocephalic Oral: No Gingival or Mucosal Lesions/ Ulcerations Neck: Supple, No JVD, Negative Carotid Bruits Chest wall/Lungs: Air entry diminished in bilateral lung bases. No crepitation/rhonchi Cardiovascular: Sinus bradycardia with. Systolic murmur Abdomen: Bowel Sounds Present, Soft, Non Tender, Non-Distended : No dysuria. No renal angle tenderness. No suprapubic tenderness. Extremities: No edema, Capillary Refill Less than 3 Seconds Skin: No rashes, No breakdown Musculoskeletal: 4+/5 at bilateral knees and hip joints. ROM mildly restricted, degenerative arthritis of knees. Neurological: DTR 2/4. No acute lateralization sign. Psych/Mental Status: Flat affect. Weight / BMI Weight Weight: 152 lb 1.903 oz Body Mass Index (BMI) 27.8 ABG / Lab / Microbiology Data 11/02/24 06:05 11/02/24 06:05 Microbiology: Microbiology 10/30/24 13:23 Mucosa - Nose SARS-CoV-2, Influenza & RSV (PCR) - Final D/C Instructions Discharge Diet: Low fat / Low cholesterol and 2000 mg Sodium Diet Weight Bearing Status: Weight bearing as tolerated Call your doctor if you observe: Fever of 101 or Higher, Coldness, Increased Pain, Numbness or Tingling, Change in Color, Inability to urinate, Inability to have a bowel movement, Shortness of breath, Dizziness, Fainting spells, Swelling in the ankles, Chest pain, Prolonged hiccupping, Increased palpitations (irregular heartbeat) and Calf discomfort DC O2, CPAP, BIPAP Needs Home O2 Discharge instructions: No When: IN 2 WEEKS Meaningful Use Info Meaningful Use Meaningful Use Diagnoses (Choose all that apply): CHF CHF VIET/ARB ordered at discharge?: No Reason VIET/ARB not ordered?: Worsening renal disease Documented LVEF (%): 40 Ischemic Stroke Statin Dosing Therapy Reference: STATIN DOSE THERAPY REFERENCE: * Patients > 75 years receive moderate or high dose statin therapy. * Patients 75 years or YOUNGER should receive HIGH intensity statin dose unless contraindicated. You will be required to document reason for non-treatment if statin daily dose does not meet guidelines. HIGH DOSE STATIN THERAPY DAILY Atorvastatin > than or = to 40 mg Rosuvastatin > than or = to 20 mg Amlodipine + Atorvastatin > than or = to 2.5/40 mg Ezetimibe + Simvastatin 10/80 mg Simvastatin 80mg Discharge Plan Admission Admit Date/Time: 10/30/24 17:20 Attending Provider: Rory Trevizo Primary Care Provider: Татьяна Barnard Consulting Providers: Pb Granado; Nirav Cain Discharge Orders/Prescriptions Prescriptions: Continued levothyroxine 25 mcg tablet 25 mcg PO DAILY brimonidine 0.15 % drops 1 drp ophthalmic (eye) BID Rx Instructions: right eye omeprazole 40 mg capsule,delayed release(DR/EC) 20 mg PO DAILY Prolia 60 mg/mL syringe 60 mg subcut [id number] Patient Comments: STARTS END UP SEPTEMBER. mecobalamin (vitamin B12) 1,000 mcg tablet,chewable 1,000 mcg PO DAILY cholecalciferol (vitamin D3) 50 mcg (2,000 unit) capsule 50 mcg PO BID atorvastatin 20 MG tablet 20 mg PO QODAY Patient Comments: CHOLESTEROL timolol maleate 1 DROP drops 1 drp RIGHT EYE BID Patient Comments: EYE DROPS furosemide 20 mg tablet 20 mg PO DAILY 30 Days Qty: 0 0RF ferrous sulfate [Feosol] 325 mg (65 mg iron) tablet 325 mg PO DAILY ondansetron HCl 4 mg tablet 4 mg PO Q8H PRN (Reason: nausea/vomiting) Rocklatan 0.02-0.005 % drops 1 drp ophthalmic (eye) DAILY Gemtesa 75 mg tablet 75 mg PO DAILY Xarelto 15 mg tablet 15 mg PO DINNER Qty: 30 11RF Rx Instructions: must administer with evening meal Held potassium chloride 10 mEq capsule, extended release 20 meq PO DAILY Hold Instructions: hold until she sees Dr. Kingston Rx Instructions: take 2 capsules by mouth once daily losartan 50 mg tablet 50 mg PO BID Qty: 180 4RF Hold Instructions: Hold until sees Dr. Kingston Discontinued carvedilol 12.5 mg tablet 12.5 mg PO BID metoprolol tartrate 50 mg tablet 100 mg PO BID Qty: 60 6RF Referrals / Follow Up: Татьяна Barnard MD [Primary Care Provider] - Within 2 Weeks Jacob Kingston MD [Med Staff - Active Staff] - In 1 Week (Follow-up with [facility]) Disposition Disposition (needs filled in before D/C Order can be placed): Home, Self Care Charges/Coding Visit Charges Inpatient E&M: 38862 Disch Hosp >30min
[2024-11-03 11:10] VITALS: BP 163/60; PULSE 46; RESP 18; TEMP 36.3; O2SAT 100
[2024-11-03] MEDS: Ferrous Sulfate 325 MG Tablet PO (11:18)
--- NOTE | 2024-11-03 12:29 | CASEMGMT ---
Patient has order for discharge. RN CM updated by [facility] that they are able to accept with start of care planned for Thursday. RN CM in to discuss needs at discharge. RN CM updated patient and daughter regarding [facility] start of care. Patient and daughter denies further needs or help at discharge. Patient and daughter had no further questions. RN CM updated discharge plan.
== END 2024-11-03 13:37 | disposition home health service (06) | DRG 309 ==
LOC: ED 17:56 → PCU 18:08
PROVIDERS: Admitting Provider Family Medicine; Emergency Provider Emergency Medicine; PCP Internal Medicine; Visit Provider Internal Medicine
DX: I48.0 Paroxysmal atrial fibrillation (principal); N17.9 Acute kidney failure, unspecified; J90 Pleural effusion, not elsewhere classified; I13.0 Hypertensive heart and chronic kidney disease with heart failure and stage 1 through stage 4 chronic kidney disease, or unspecified chronic kidney disease; N18.4 Chronic kidney disease, stage 4 (severe); I50.42 Chronic combined systolic (congestive) and diastolic (congestive) heart failure; D63.1 Anemia in chronic kidney disease; E86.0 Dehydration; Z66 Do not resuscitate; I27.20 Pulmonary hypertension, unspecified; E03.9 Hypothyroidism, unspecified; E78.5 Hyperlipidemia, unspecified; K21.9 Gastro-esophageal reflux disease without esophagitis; I25.10 Atherosclerotic heart disease of native coronary artery without angina pectoris; I49.5 Sick sinus syndrome; R00.1 Bradycardia, unspecified; Z79.01 Long term (current) use of anticoagulants; Z87.891 Personal history of nicotine dependence; Z79.890 Hormone replacement therapy; Z79.899 Other long term (current) drug therapy; R01.1 Cardiac murmur, unspecified
CPT/HCPCS: 36415; 71045; 80048; 81001; 83880; 84156; 84484; 85025; 86850; 86900; 86901; 87631; 93005; 93225; 93226; 93308; 93923; 97116; 97162; 97166; 97530; 97535; 99284; A4216; C8924; J2405

== ENCOUNTER → 2024-11-08 | Outpatient (CLI) | payer MEDICARE, SELFPAY ==
[2024-11-08 15:55] LABS: Anion Gap 10 (5-15); BUN 17 mg/dL (4-19); BUN/Creat Ratio 13.2 RATIO (10-20); Calcium,Total 9.3 mg/dL (7.6-11.0); Carbon Dioxide 22.7 mmol/L (21.0-32.0); Chloride 110 mmol/L (98-108); Creatinine, Serum 1.31 mg/dL (0.70-1.20); EST Glomerular Filtration Rate 39 (>60); Glucose 111 mg/dL (70-99); Potassium 3.6 mmol/L (3.3-5.1); Sodium Level 142 mmol/L (133-145)
== END | disposition home or self-care (01) ==
LOC: MTLAB 11:44
PROVIDERS: PCP Internal Medicine; Referring Provider Internal Medicine Cardiovascular Disease; Visit Provider Internal Medicine Cardiovascular Disease
DX: I50.30 Unspecified diastolic (congestive) heart failure (principal); N18.30 Chronic kidney disease, stage 3 unspecified
CPT/HCPCS: 36415; 80048

== ENCOUNTER 2024-11-19 09:12 | Emergency (ER) | payer MEDICARE, SELFPAY ==
[2024-11-19] VITALS (10 sets, daily range): BP systolic 149–205; BP diastolic 57–87; PULSE 42–53; RESP 16–18; TEMP 36.9; O2SAT 96–99; BMI 25.4
--- NOTE | 2024-11-19 09:20 | EX.ED.DYSGE1 ---
HPI History of Present Illness Chief Complaint: Palpitations Informant: patient and family Onset/Context/Timing Onset: Yesterday Context: Sudden Onset Timing: Continuous Quality: Weakness Location: Lower extremities Worsened by: Nothing Relieved by: Nothing Narrative Narrative: Patient presents with weakness that began last night. Patient states that her legs feel weak. Patient states she broke out into a sweat. Patient admits to some nausea. Patient denies any chest pain or palpitations. Patient denies any shortness of breath or cough. Patient denies any headaches. Patient denies any fevers or chills. Daughter states patient has a history of atrial fibrillation and thinks she went back to a sinus rhythm last night. [facility] Medical History Stage 3b chronic kidney disease (CKD) Chronic kidney disease Hypothyroidism (acquired) Wears glasses Post-menopausal Thyroid disease Gastric reflux Former smoker History of edema History of echocardiogram History of stress test Cardiology follow-up encounter History of CHF (congestive heart failure) Paroxysmal atrial fibrillation Elevated liver enzymes CKD (chronic kidney disease) stage 4, GFR 15-29 ml/min Stage 3b chronic kidney disease (CKD) Lymphedema of both lower extremities Bilateral lower extremity edema Dyspnea on exertion Pneumonia (03/19/22) Essential hypertension Atrial fibrillation, new onset Positive occult stool blood test Umbilical hernia Osteoporosis Hemorrhage of anus and rectum Glaucoma Acquired keratoderma Anemia Syncope Essential hypertension Sweating Palpitations Near syncope Hernia HLD (hyperlipidemia) Home Medications ?Medication ?Instructions ?Recorded ?Last Taken ?Type atorvastatin 20 mg tablet 20 mg PO QODAY Cholesterol 12/06/16 10/28/24 History timolol maleate 0.5 % eye drops 1 drp RIGHT EYE BID eye drops 12/06/16 10/29/24 History brimonidine 0.15 % eye drops 1 drp ophthalmic (eye) BID eye 03/25/22 10/29/24 History health levothyroxine 25 mcg tablet 25 mcg PO DAILY thyroid 03/25/22 10/30/24 History losartan 50 mg tablet 50 mg PO BID bp #180 tabs 07/11/22 10/30/24 Rx cholecalciferol (vitamin D3) 50 50 mcg PO BID supplement 05/08/23 10/29/24 History mcg (2,000 unit) capsule mecobalamin (vitamin B12) 1,000 1,000 mcg PO DAILY supplement 05/08/23 10/29/24 History mcg chewable tablet denosumab 60 mg/mL subcutaneous 60 mg subcut [id number] bone health 08/20/23 04/25/24 History syringe (Prolia) rivaroxaban 15 mg tablet (Xarelto) 15 mg PO DINNER blood thinner #30 04/25/24 10/29/24 Rx tabs potassium chloride 10 mEq 20 meq PO DAILY 08/27/24 10/11/24 History capsule,extended release Held on 11/03/24. Instructions: hold until she sees Dr. Kingston vibegron 75 mg tablet (Gemtesa) 75 mg PO DAILY bladder 08/27/24 10/30/24 History ferrous sulfate 325 mg (65 mg 325 mg PO DAILY supplement 10/30/24 10/29/24 History iron) tablet (Feosol) netarsudil 0.02 %-latanoprost 1 drp ophthalmic (eye) DAILY 10/30/24 10/29/24 History 0.005 % eye drops (Rocklatan) ondansetron HCl 4 mg tablet 4 mg PO Q8H PRN nausea/vomiting 10/30/24 10/30/24 History amiodarone 200 mg tablet 200 mg PO BID #60 tabs 11/11/24 Unknown Rx furosemide 20 mg tablet (Lasix) 20 mg PO .PRN PRN 11/11/24 Unknown History omeprazole 40 mg capsule,delayed 40 mg PO DAILY gerd 11/11/24 Unknown History release metoprolol tartrate 25 mg tablet 25 mg PO BID #60 tabs 11/14/24 Unknown Rx Allergy/AdvReac Type Severity Reaction Status Date / Time amantadine Allergy Rash Verified 11/19/24 09:12 cephalexin Allergy Rash Verified 11/19/24 09:12 erythromycin base Allergy Rash Verified 11/19/24 09:12 hydrochlorothiazide Allergy Rash Verified 11/19/24 09:12 Iodinated Contrast Media Allergy Rash Verified 11/19/24 09:12 nitrofurantoin (From Allergy Vomiting Verified 11/19/24 09:12 Macrobid) amlodipine (From Norvasc) AdvReac Severe SEVERE Verified 11/19/24 09:12 SWELLING in LEGS Family History Mother CAD (coronary artery disease) Father CAD (coronary artery disease) Brother CAD (coronary artery disease) Sister CAD (coronary artery disease) Surgical History History of cardiac catheterization Hx of esophagogastroduodenoscopy History of colonoscopy History of hysteroscopy H/O hernia repair Tubal ligation status History of left heart catheterization (02/05/18) s/p left wrist ORIF Social History household members: none housing: apartment number of children: 4 Smoking Status: Former smoker quit date: 06/29/76 alcohol intake: never substance use type: does not use caffeine: Yes (Occasionally) ROS ROS ED Constitutional Constitutional ED: Reports sweats; Denies chills or fever(s) Eyes Eyes: Denies blurry vision or change in vision ENT ENT ED: Reports rhinorrhea; Denies sore throat Cardiovascular Cardiovascular: Denies chest pain or palpitations Respiratory/Chest Respiratory/Chest: Denies cough or dyspnea Gastrointestinal Gastrointestinal: Reports nausea; Denies vomiting Genitourinary Genitourinary ED: Denies dysuria or hematuria Musculoskeletal Musculoskeletal: Denies back pain or neck pain Integumentary Denies abscess or rash Neurologic Neurologic: Reports weakness; Denies headache(s) Allergic/Immunologic Allergic/Immunologic ED: Denies mouth swelling or urticaria EXAM Physical Exam Const Vital Signs: 11/19/24 09:12 11/19/24 09:52 11/19/24 10:12 Temperature 98.4 F Temperature Source Oral Pulse Rate 50 L 53 L Respiratory Rate 18 18 Blood Pressure 181/62 H 149/83 H Blood Pressure Mean 101 105 Pulse Ox 99 98 Oxygen Delivery Method Room Air Room Air 11/19/24 11:00 11/19/24 12:00 11/19/24 13:00 Temperature Temperature Source Pulse Rate 42 L 46 L 47 L Respiratory Rate 18 18 18 Blood Pressure 181/68 H 205/85 H 199/77 H Blood Pressure Mean 105 125 117 Pulse Ox 98 98 98 Oxygen Delivery Method Room Air 11/19/24 14:00 Temperature Temperature Source Pulse Rate 49 L Respiratory Rate 18 Blood Pressure 204/79 H Blood Pressure Mean 120 Pulse Ox 98 Oxygen Delivery Method Room Air Positive well nourished and well developed Constitutional Narrative: BMI is 25.5. General Appearance ED: well developed and NAD HEENT Reports moist mucous membranes Neck supple and no JVD Resp normal respiratory effort and clear to auscultation bilaterally Cardio regular rhythm Rate: bradycardia GI non-tender and non-distended Palpation: soft Extremity normal to inspection General Extremety ED: Negative for edema or tenderness General Extremity: Negative for edema Neuro oriented x3, CN's II-XII intact bilaterally and no sensory deficits noted Sensorium / Orientation: alert Motor Exam: strength 5/5 throughout Psych mental status grossly normal MDM MDM MDM Narrative Medical decision making narrative: Differential diagnosis includes cardiac dysrhythmia, cardiac ischemia, pneumonia, electrolyte abnormality, urinary tract infection, dehydration, and viral illness. EKG will be obtained to assess for cardiac dysrhythmia and cardiac ischemia. Chest x-ray will be obtained to assess for pneumonia, congestive heart failure, and bronchitis. CBC will be obtained to assess for leukocytosis and anemia. Basic metabolic profile will be obtained to assess for electrolyte abnormality and renal function. High-sensitivity troponin will be obtained to assess for cardiac ischemia. PT with INR and PTT will be obtained to assess for coagulopathy. Urinalysis will be obtained to assess for urinary tract infection and hematuria. History & Record Review Additional record(s) reviewed:: Prior ED visit and Prior labs Lab Data Attestation: I reviewed the patient's lab results. Lab results narrative: CBC was reviewed. There is a mild anemia with a hemoglobin of 10.7 and hematocrit 33.5. PT with INR and PTT were reviewed. Pro time was 26.3 and INR is 2.4 PTT was slightly elevated at 39.3. Basic metabolic profile was reviewed. BUN was slightly elevated at 28 and creatinine was 1.63. These are consistent with previous results. Serum magnesium was reviewed and was normal at 1.6. High-sensitivity troponin was reviewed and was slightly elevated at 38. 2-hour repeat high-sensitivity troponin was reviewed and was improved at 37. These are decreased from previous results on 10/30/2024 and 10/11/2024. Labs: Laboratory Results - last 24 hr 11/19/24 11/19/24 10:13 12:24 WBC 6.1 RBC 3.35 L Hgb 10.7 L Hct 33.5 L MCV 100.0 H MCH 31.9 MCHC 31.9 L RDW Std Deviation 52.0 H RDW Coeff of Broderick 14.3 Plt Count 226 MPV 10.5 Immature Gran % (Auto) 0.300 Neut % (Auto) 70.8 H Lymph % (Auto) 19.9 Hinds % (Auto) 6.0 Eos % (Auto) 2.3 Baso % (Auto) 0.7 Absolute Neuts (auto) 4.3 Absolute Lymphs (auto) 1.22 Nucleated RBC % 0 PT 26.3 H INR 2.4 APTT 39.3 H Sodium 138 Potassium 3.9 Chloride 109 H Carbon Dioxide 16.5 L Anion Gap 12 BUN 28 H Creatinine 1.63 H Estim Creat Clear Calc 21.24 L Est GFR (MDRD) Non-Af 30 L BUN/Creatinine Ratio 16.9 Glucose 102 H Calcium 7.3 L Magnesium 1.6 Troponin T High Sens 38 H D Troponin T Hi Sens 2 Hr 37 H Radiography Chest X-Ray - ED: 1 View, Read by ED Physician, Read by Radiologist and No Acute Disease Diagnostic Testing: Clinical Impression(s) from Imaging Studies Chest X-Ray 11/19/24 09:52 IMPRESSION: Unremarkable exam. No acute process. Reading Location: [facility] Portable 1 view chest x-ray was obtained. On my independent interpretation, lung carrion are clear. There is normal cardiac silhouette. Bony thorax is normal. There is no acute process noted. Radiologist also interpreted the x-ray and agrees. EKG Initial EKG: Attestation: I personally reviewed and interpreted this EKG as follows: Interpretation: No Acute Injury Pattern and Sinus Bradycardia (48) Comments: EKG was obtained. On my independent interpretation, it showed a sinus bradycardia with a rate of 48. MT interval, QRS interval, and QTc intervals were all normal. [place] was normal. There are no acute ST or T wave changes. Prior EKG tracings: available for review Prior: Unchanged (11/01/2024) Treatment and Re-Evaluation :: Patient was advised of her findings. Patient's blood pressure increased to 204/79. Patient was ordered a dose of clonidine. However, on reevaluation patient's blood pressure was 154/79. The clonidine was held. Case was discussed with Dr. Olvera from cardiology. He recommended holding the metoprolol. Patient was instructed to follow-up with cardiology as scheduled. Daughter states patient has an appointment this Thursday. Patient and daughter were instructed to return if worse in any way. Patient and daughter understood and were agreeable with the plan. All questions were answered. Discharge Plan Triage Chief Complaint: Palpitations ED Provider: Beto Keene Dx/Rx/DC Orders Clinical Impression: Bradycardia, sinus, Essential hypertension Instructions: ED Bradycardia, ED Hypertension, Established Prescriptions: No Action levothyroxine 25 mcg tablet 25 mcg PO DAILY brimonidine 0.15 % drops 1 drp ophthalmic (eye) BID Rx Instructions: right eye omeprazole 40 mg capsule,delayed release(DR/EC) 40 mg PO DAILY Prolia 60 mg/mL syringe 60 mg subcut [id number] Patient Comments: STARTS END UP SEPTEMBER. mecobalamin (vitamin B12) 1,000 mcg tablet,chewable 1,000 mcg PO DAILY cholecalciferol (vitamin D3) 50 mcg (2,000 unit) capsule 50 mcg PO BID furosemide [Lasix] 20 mg tablet 20 mg PO .PRN PRN amiodarone 200 mg tablet 200 mg PO BID Qty: 60 11RF atorvastatin 20 MG tablet 20 mg PO QODAY Patient Comments: CHOLESTEROL timolol maleate 1 DROP drops 1 drp RIGHT EYE BID Patient Comments: EYE DROPS ferrous sulfate [Feosol] 325 mg (65 mg iron) tablet 325 mg PO DAILY ondansetron HCl 4 mg tablet 4 mg PO Q8H PRN (Reason: nausea/vomiting) Rocklatan 0.02-0.005 % drops 1 drp ophthalmic (eye) DAILY potassium chloride 10 mEq capsule, extended release 20 meq PO DAILY Rx Instructions: take 2 capsules by mouth once daily Gemtesa 75 mg tablet 75 mg PO DAILY losartan 50 mg tablet 50 mg PO BID Qty: 180 4RF Xarelto 15 mg tablet 15 mg PO DINNER Qty: 30 11RF Rx Instructions: must administer with evening meal metoprolol tartrate 25 mg tablet 25 mg PO BID Qty: 60 11RF Primary Care Provider: Anay Barnard Referrals: Aany Barnard MD [Primary Care Provider] - Activity Restrictions/Additional Instructions: Stop taking the metoprolol but continue the amiodarone and losartan. Print Language: Hungarian Disposition Disposition: Home, Self Care
--- NOTE | 2024-11-19 09:52 | EKG12_ITS ---
Test Reason : PALPS Blood Pressure : */* mmHG Vent. Rate : 48 BPM Atrial Rate : 48 BPM P-R Int : 198 ms QRS Dur : 86 ms QT Int : 492 ms P-R-T Axes : -16 61 68 degrees QTcB Int : 439 ms Sinus bradycardia Otherwise normal ECG When compared with ECG of 01-Nov-2024 00:21, Premature supraventricular complexes are no longer Present Nonspecific T wave abnormality, worse in Lateral leads Confirmed by Jacob Kingston ([id number]), offline editor LUH ASHLEY ([id number]) on 11/29/2024 10:06:07 AM Referred By: VENTURA Confirmed By: Jacob Kingston
--- NOTE | 2024-11-19 09:52 | RAD_ITS ---
PROCEDURE: The Y is not launch cm already have a click are is 11/19/2024 REASON FOR EXAM: CHEST PAIN TECHNIQUE: Frontal view of the chest. COMPARISON: 10/31/2019 FINDINGS: Hardware: EKG lead wires overlie the chest. Heart: Heart size is normal. Lungs: Lungs are clear. Bones: Unremarkable Other: RAD/Chest 1 View (Portable) IMPRESSION: Unremarkable exam. No acute process. Reading Location: [facility]
--- NOTE | 2024-11-19 09:55 | CM.ED ---
Social Work Date of referral: 11/19/24 Reason for referral: Advanced Care Directives follow up needed. Referred by: Social Work Identification Patient provided consent for social work visit. amusement park worker introduced herself and requested bring in a copy of her Living Will/Advanced Care Directives which patient stated she would. amusement park worker educated patient that she can bring them in at her next appointment or drop them off when out/about in the community which patient stated she would. No other questions/concerns. Margie Bryant, CNC MILL PROGRAMMER, PLASTIC DESIGN APPLIER
[2024-11-19 10:20] LABS: Absolute Lymphocyte Count 1.22 X10^3/uL (0.83-4.51); Absolute Neutrophil Count 4.3 X10^3/uL (2.0-7.7); Basophil# 0.04 X10^3/uL; Basophil% 0.7 % (0-1); Eosinophil# 0.14 X10^3/uL; Eosinophils% 2.3 % (0-5); Hematocrit 33.5 % (37-47); Hemoglobin 10.7 g/dL (12.0-15.0); Lymphocyte # 1.22 X10^3/ul (0.83-4.51); Lymphocyte % 19.9 % (19-41); Mean Corp Hgb Conc 31.9 g/dL (32-36); Mean Corpuscular Hgb 31.9 pg (27.0-32.0); Mean Platelet Vol. 10.5 fl (6.2-12.0); Monocyte# 0.37 X10^3/uL; NRBC Flagged by Analyzer 0 % (0-5); Neutrophil # 4.34 X10^3/uL (2.7-7.7); Neutrophil % 70.8 % (47-70); Platelet Count 226 K/mm3 (150-450); RBC Distribution Width CV 14.3 % (11.6-14.6); Red Blood Count 3.35 M/mm3 (4.2-5.4); White Blood Count 6.1 K/mm3 (4.4-11.0)
[2024-11-19 10:29] LABS: International Normalized Ratio 2.4; Prothrombin Time (Protime)PT. 26.3 SECONDS (11.7-14.9)
[2024-11-19 10:30] LABS: Partial Thromboplast Time 39.3 Seconds (24.1-36.2)
[2024-11-19 10:40] LABS: Magnesium 1.6 mg/dL (1.5-2.2); Troponin T High Sensitivity 38 ng/L (<=14)
[2024-11-19 10:41] LABS: Anion Gap 12 (5-15); BUN 28 mg/dL (4-19); BUN/Creat Ratio 16.9 RATIO (10-20); Calcium,Total 7.3 mg/dL (7.6-11.0); Carbon Dioxide 16.5 mmol/L (21.0-32.0); Chloride 109 mmol/L (98-108); Creatinine, Serum 1.63 mg/dL (0.70-1.20); EST Glomerular Filtration Rate 30 (>60); Estimated Creatinine Clearance 21.24 ml/min (50-250); Glucose 102 mg/dL (70-99); Potassium 3.9 mmol/L (3.3-5.1); Sodium Level 138 mmol/L (133-145)
[2024-11-19 12:53] LABS: Troponin T High Sens 2 HR 37 ng/L (<=14)
[2024-11-19] MEDS: cloNIDine HCl 0.2 MG Tablet PO (14:50)
== END 2024-11-19 15:23 | disposition home or self-care (01) ==
PROVIDERS: Emergency Provider Emergency Medicine; PCP Internal Medicine; Visit Provider Emergency Medicine
DX: R00.1 Bradycardia, unspecified (principal); N18.4 Chronic kidney disease, stage 4 (severe); I13.0 Hypertensive heart and chronic kidney disease with heart failure and stage 1 through stage 4 chronic kidney disease, or unspecified chronic kidney disease; I50.9 Heart failure, unspecified; I48.0 Paroxysmal atrial fibrillation; E78.5 Hyperlipidemia, unspecified; E03.9 Hypothyroidism, unspecified; R53.1 Weakness; R11.0 Nausea; Z79.01 Long term (current) use of anticoagulants; Z79.890 Hormone replacement therapy; Z79.899 Other long term (current) drug therapy; Z87.891 Personal history of nicotine dependence
CPT/HCPCS: 71045; 80048; 83735; 84484; 85025; 85610; 85730; 93005; 99284; A4216

== ENCOUNTER → 2025-02-02 | Outpatient (CLI) | payer MEDICARE, SELFPAY ==
--- NOTE | 2025-02-02 13:57 | ECHOL_ITS ---
Reason For Study Reason For Study: ATRIAL FIB-FLUTTER, EVAL EF Procedure This was a limited 2D transthoracic echocardiogram. Exam performed in department. Left Ventricle Normal LV size. Left ventricular systolic function is normal. The left ventricular ejection fraction is 60 %. No regional wall motion abnormalities noted. Right Ventricle Normal RV size. Normal systolic function. Atria Normal left atrium. Normal right atrium. Mitral Valve Normal mitral valve. Mild-Moderate (1-2+) eccentric mitral valve insufficiency. Tricuspid Valve Normal tricuspid valve. Moderately severe (3+) tricuspid valve insufficiency. Pulmonary artery systolic pressure is 100 mmHg. Severe pulmonary hypertension. Aortic Valve Trisinus/trileaflet aortic valve. Pulmonic Valve Normal pulmonic valve. Great Vessels Normal aortic root. The pulmonary artery is normal size. Inferior vena cava collapse with respiration. Pericardium/Pleural No pericardial effusion. Epicardial fat. MMode/2D Measurements & Calculations LVIDd: 3.9 cm IVSd: 0.87 cm LAV(MOD- bp): 42.9 ml LVIDs: 2.6 cm LVPWd: 1.0 cm LAV(MOD- bp) Indexed: 26.8 ml/m2 FS: 32.1 % LAV(MOD- sp2): 39.2 ml LAV(MOD- sp4): 41.8 ml SV(MOD-sp4): 38.1 ml SV(sp4- el): 40.6 ml LVAd ap4: 22.5 cm2 LVLd ap4: 6.8 cm SI(MOD-sp4): 23.8 ml/m2 EDV(MOD-sp4): 61.7 ml EDV(sp4-el): 63.6 ml LVAs ap4: 12.4 cm2 LVLs ap4: 5.7 cm ESV(MOD-sp4): 23.7 ml ESV(sp4-el): 23.0 ml EF(MOD-sp4): 61.7 % EF(sp4-el): 63.8 % LA A4 area: 16.6 cm2 RA A4 area: 14.6 cm2 Doppler Measurements & Calculations TR max goldy: 494.3 cm/sec TR max P.7 mmHg ECHO/Echo, Limited Study Interpretation Summary Normal LV size. Left ventricular systolic function is normal. The left ventricular ejection fraction is 60 %. Pulmonary artery systolic pressure is 100 mmHg. Severe pulmonary hypertension. Epicardial fat. Ordering Physician: Jacob Kingston Referring Physician: ТАТЬЯНА SCHULER Performed By: Poornima Woodward RDCS
== END | disposition home or self-care (01) ==
LOC: CVS 13:55
PROVIDERS: PCP Internal Medicine; Referring Provider Internal Medicine Cardiovascular Disease; Visit Provider Internal Medicine Cardiovascular Disease
DX: I48.0 Paroxysmal atrial fibrillation (principal)
CPT/HCPCS: 93308

== ENCOUNTER → 2025-03-01 | Outpatient (CLI) | payer MEDICARE, SELFPAY ==
[2025-03-01 12:15] LABS: Hematocrit 33.9 % (37-47); Hemoglobin 11.2 g/dL (12.0-15.0); Mean Corp Hgb Conc 33.0 g/dL (32-36); Mean Corpuscular Volume 98.3 fL (81-99); Mean Platelet Vol. 10.0 fl (6.2-12.0); Platelet Count 165 K/mm3 (150-450); RBC Distribution Width CV 14.6 % (11.6-14.6); RBC Distribution Width SD 52.1 fl (35.1-43.9); Red Blood Count 3.45 M/mm3 (4.2-5.4); White Blood Count 5.8 K/mm3 (4.4-11.0)
[2025-03-01 13:10] LABS: Albumin, Serum 4.0 g/dL (3.4-4.8); Anion Gap 11 (5-15); BUN 30 mg/dL (4-19); BUN/Creat Ratio 19.9 RATIO (10-20); Calcium,Total 9.0 mg/dL (7.6-11.0); Carbon Dioxide 21.5 mmol/L (21.0-32.0); Chloride 108 mmol/L (98-108); Glucose 106 mg/dL (70-99); Iron 53 ug/dL (50-170); Iron Binding Capacity,Unsat 180 ug/dL (228-428); Potassium 3.9 mmol/L (3.3-5.1)
[2025-03-01 13:16] LABS: PTHIN 88 pg/mL (11-61)
[2025-03-01 13:37] LABS: Iron Binding Capacity,Total 233 ug/dL (250-450)
[2025-03-01 14:27] LABS: Vitamin D,25 Hydroxy 54.3 ng/mL (30-100)
== END | disposition home or self-care (01) ==
LOC: POLAB3 11:56
PROVIDERS: Internal Medicine Endocrinology, Diabetes & Metabolism; PCP Internal Medicine; Visit Provider Internal Medicine Nephrology
DX: N18.4 Chronic kidney disease, stage 4 (severe) (principal); D50.9 Iron deficiency anemia, unspecified; R53.83 Other fatigue
CPT/HCPCS: 36415; 80069; 82306; 83540; 83550; 83970; 84443; 85027

== ENCOUNTER 2025-04-01 10:51 | Inpatient (IN) | payer MEDICARE, SELFPAY ==
[2025-04-01] VITALS (14 sets, daily range): BP systolic 158–191; BP diastolic 36–54; PULSE 32–53; RESP 14–18; TEMP 36.7–36.9; O2SAT 93–97; BMI 23.2; BMI 23.9
--- NOTE | 2025-04-01 11:07 | EKG12_ITS ---
Test Reason : Blood Pressure : */* mmHG Vent. Rate : 46 BPM Atrial Rate : 46 BPM P-R Int : 198 ms QRS Dur : 88 ms QT Int : 474 ms P-R-T Axes : 27 42 29 degrees QTcB Int : 414 ms Sinus bradycardia with Premature supraventricular complexes Nonspecific ST abnormality Abnormal ECG Confirmed by TC FERNANDEZ, MALIK ([id number]), editor book JUANPABLO POSADA ([id number]) on 04/03/2025 8:28:49 AM Referred By: Confirmed By: MALIK MONTEZ MD
[2025-04-01 11:15] LABS: Hematocrit 33.7 % (37-47); Hemoglobin 10.9 g/dL (12.0-15.0); Immature Granulocytes Count 0.030 X10^3/uL (0.0-0.0); Mean Corp Hgb Conc 32.3 g/dL (32-36); Mean Corpuscular Volume 98.3 fL (81-99); Mean Platelet Vol. 10.1 fl (6.2-12.0); NRBC Flagged by Analyzer 0 % (0-5); Platelet Count 167 K/mm3 (150-450); RBC Distribution Width CV 13.9 % (11.6-14.6); RBC Distribution Width SD 50.1 fl (35.1-43.9); Red Blood Count 3.43 M/mm3 (4.2-5.4); White Blood Count 7.9 K/mm3 (4.4-11.0)
--- NOTE | 2025-04-01 11:15 | EX.ED.DYSGE1 ---
HPI History of Present Illness Chief Complaint: Dizziness Detail of Chief Complaint: Low heart rate. Informant: patient and family (Daughter at bedside) Onset/Context/Timing Onset: Today Current Severity: Mild Maximum Severity: Mild Narrative Narrative: 89-year-old female history of A-fib on Xarelto, CHF, CKD. Recently was diagnosed with UTI placed on Bactrim by her primary care physician. States today she was having dizziness at home felt lightheaded and her heart rate was dropping into the 30s possibly 20s. She is on amiodarone and losartan. She denies any history of bradycardia. Prior similar symptoms: No Recent Illness/Hospitalization: No PFSH PFSH Medical History Urinary tract infection Mixed incontinence Nocturia Stage 3b chronic kidney disease (CKD) Chronic kidney disease Hypothyroidism (acquired) Wears glasses Post-menopausal Thyroid disease Gastric reflux Former smoker History of edema History of echocardiogram History of stress test Cardiology follow-up encounter History of CHF (congestive heart failure) Paroxysmal atrial fibrillation Elevated liver enzymes CKD (chronic kidney disease) stage 4, GFR 15-29 ml/min Stage 3b chronic kidney disease (CKD) Lymphedema of both lower extremities Bilateral lower extremity edema Dyspnea on exertion Pneumonia (03/19/22) Essential hypertension Atrial fibrillation, new onset Positive occult stool blood test Umbilical hernia Osteoporosis Hemorrhage of anus and rectum Glaucoma Acquired keratoderma Anemia Syncope Essential hypertension Sweating Palpitations Near syncope Hernia HLD (hyperlipidemia) Home Medications ?Medication ?Instructions ?Recorded ?Last Taken ?Type atorvastatin 20 mg tablet 20 mg PO QODAY Cholesterol 12/06/16 10/28/24 History timolol maleate 0.5 % eye drops 1 drp RIGHT EYE BID eye drops 12/06/16 10/29/24 History brimonidine 0.15 % eye drops 1 drp ophthalmic (eye) BID eye 03/25/22 10/29/24 History health levothyroxine 25 mcg tablet 25 mcg PO DAILY thyroid 03/25/22 10/30/24 History losartan 50 mg tablet 50 mg PO BID bp #180 tabs 07/11/22 10/30/24 Rx mecobalamin (vitamin B12) 1,000 1,000 mcg PO DAILY supplement 05/08/23 10/29/24 History mcg chewable tablet denosumab 60 mg/mL subcutaneous 60 mg subcut [id number] bone health 08/20/23 04/25/24 History syringe (Prolia) ferrous sulfate 325 mg (65 mg 325 mg PO DAILY supplement 10/30/24 10/29/24 History iron) tablet (Feosol) netarsudil 0.02 %-latanoprost 1 drp ophthalmic (eye) DAILY 10/30/24 10/29/24 History 0.005 % eye drops (Rocklatan) ondansetron HCl 4 mg tablet 4 mg PO Q8H PRN nausea/vomiting 10/30/24 10/30/24 History furosemide 20 mg tablet (Lasix) 20 mg PO .PRN PRN 11/11/24 Unknown History omeprazole 40 mg capsule,delayed 40 mg PO DAILY gerd 11/11/24 Unknown History release carvedilol 3.125 mg tablet 3.125 mg PO BID #60 tabs 11/25/24 Unknown Rx cholecalciferol (vitamin D3) 50 50 mcg PO QDAY supplement 11/25/24 Unknown History mcg (2,000 unit) capsule amiodarone 200 mg tablet 100 mg (1/2 x 200 mg) PO QDAY #60 12/22/24 Unknown Rx tabs hydralazine 50 mg tablet 50 mg PO TID #90 tabs 01/09/25 Unknown Rx Gemtesa 75 mg tablet (vibegron) 75 mg PO DAILY bladder #90 tabs 02/22/25 Unknown Rx rivaroxaban 15 mg tablet (Xarelto) 15 mg PO DINNER blood thinner #30 03/27/25 Unknown Rx tabs Allergy/AdvReac Type Severity Reaction Status Date / Time amantadine Allergy Rash Verified 04/01/25 10:52 cephalexin Allergy Rash Verified 04/01/25 10:52 erythromycin base Allergy Rash Verified 04/01/25 10:52 hydrochlorothiazide Allergy Rash Verified 04/01/25 10:52 Iodinated Contrast Media Allergy Rash Verified 04/01/25 10:52 nitrofurantoin (From Allergy Vomiting Verified 04/01/25 10:52 Macrobid) amlodipine (From Norvasc) AdvReac Severe SEVERE Verified 04/01/25 10:52 SWELLING in LEGS Family History Mother CAD (coronary artery disease) Father CAD (coronary artery disease) Brother CAD (coronary artery disease) Sister CAD (coronary artery disease) Surgical History History of cardiac catheterization Hx of esophagogastroduodenoscopy History of colonoscopy History of hysteroscopy H/O hernia repair Tubal ligation status History of left heart catheterization (02/05/18) s/p left wrist ORIF Social History household members: none housing: apartment number of children: 4 Smoking Status: Former smoker quit date: 06/29/76 alcohol intake: never substance use type: does not use caffeine: Yes (Occasionally) ROS ROS ED ROS Narrative Denies recent illness besides a UTI. No chest pain or shortness of breath. Constitutional Constitutional ED: Denies chills or fever(s) Eyes Eyes: Denies blurry vision ENT ENT ED: Denies ear pain Cardiovascular Cardiovascular: Denies chest pain Respiratory/Chest Respiratory/Chest: Denies cough or dyspnea Gastrointestinal Gastrointestinal: Denies abdominal pain, diarrhea, nausea or vomiting Genitourinary Genitourinary ED: Reports other Details: Currently being treated for UTI. ; Denies dysuria or hematuria Musculoskeletal Musculoskeletal: Denies arthralgias or back pain Integumentary Denies abscess Neurologic Neurologic: Denies headache(s) Psychiatric Psychiatric: Denies anxiety Endocrine Endocrinology: Denies cold intolerance Hematologic/Lymphatic Hematologic/Lymphatic: Reports none Allergic/Immunologic Allergic/Immunologic ED: Denies mouth swelling, tongue swelling or urticaria EXAM Physical Exam Narrative Exam Narrative: 81-year-old female sitting upright in bed. Vital signs stable 1 I am in the room her heart rates in the 50s. At triage it was 32. Blood pressure was 158/54. Pulse ox 95% on room air no hypoxia. In the room she is in no distress. Daughter at bedside. H EENT exam pupils are reactive light. Moist Riese membranes. Neck nontender no JVD. No lymphadenopathy. Back nontender. Lungs clear to auscultation bilaterally. Heart bradycardic in the 50s no appreciable murmur. Appears to be sinus bradycardia on the monitor. Chest wall ribs nontender. Abdomen soft nontender. Moving all 4 extremities. Normal strength. Nontender no edema. Neurologically she is awake alert. Answering questions following commands. No focal motor deficits. NIH 0. Const Vital Signs: 04/01/25 10:52 04/01/25 11:07 04/01/25 11:15 Temperature 98.0 F Temperature Source Oral Pulse Rate 32 L 53 L Respiratory Rate 16 16 Blood Pressure 158/54 H 163/36 H Blood Pressure Mean 88 78 Pulse Ox 95 96 Oxygen Delivery Method Room Air Room Air 04/01/25 11:30 04/01/25 12:00 Temperature Temperature Source Pulse Rate 52 L 47 L Respiratory Rate 16 17 Blood Pressure 168/39 H 161/54 H Blood Pressure Mean 76 89 Pulse Ox 96 93 Oxygen Delivery Method MDM MDM MDM Narrative Medical decision making narrative: 89-year-old female history of A-fib on the blood thinner Xarelto also history of high blood pressure on losartan and amiodarone for A-fib. Presents with dizziness with heart rates dipping in the 30s possibly the 20s. She undergo cardiac workup. This could be specific cardiac issues such as sick sinus syndrome versus A-fib versus electrolyte abnormality due to her kidney disease excetra. Repeat exam patient is doing well at around 12:40 PM. Went over test results. Given her bradycardia and heart rate falling in the low 30s and high 20s in triage she will be admitted for further evaluation of symptomatic bradycardia. History & Record Review Discussion w/independent historian: Patient and Family Additional record(s) reviewed:: Prior inpatient record, Prior outpatient record, Prior ED visit and Prior labs Lab Data Attestation: I reviewed the patient's lab results. Lab results narrative: CBC shows a white count of 7. H&H 10.9 and 33. Platelets 167. Electrolytes show a gap of 12. BUN/creatinine 32 and 1.9. Glucose 107. Initial troponin 47. TSH 2.38 normal. Chest x-ray unremarkable. Labs: Laboratory Results - last 24 hr 04/01/25 11:06 WBC 7.9 RBC 3.43 L Hgb 10.9 L Hct 33.7 L MCV 98.3 MCH 31.8 MCHC 32.3 RDW Std Deviation 50.1 H RDW Coeff of Broderick 13.9 Plt Count 167 MPV 10.1 Immature Gran % (Auto) 0.400 Neut % (Auto) 77.5 H Lymph % (Auto) 13.2 L [place] % (Auto) 6.9 Eos % (Auto) 1.4 Baso % (Auto) 0.6 Absolute Neuts (auto) 6.1 Absolute Lymphs (auto) 1.04 Nucleated RBC % 0 Sodium 134 Potassium 4.5 Chloride 101 Carbon Dioxide 20.5 L Anion Gap 12 BUN 32 H Creatinine 1.96 H Estim Creat Clear Calc 15.69 L Est GFR (MDRD) Non-Af 24 L BUN/Creatinine Ratio 16.5 Glucose 107 H Calcium 9.1 Troponin T High Sens 47 H D TSH 2.380 Radiography Chest X-Ray - ED: 1 View, Read by ED Physician, Read by Radiologist, Heart, Lungs, Mediastinum, Bony Structures, No Acute Disease and Chronic Changes Diagnostic Testing: Clinical Impression(s) from Imaging Studies Chest X-Ray 04/01/25 11:20 IMPRESSION: No Acute Findings. Reading Location: [facility] Chest x-ray, portable, single view interpreted myself radiology shows no acute abnormality. Normal cardiac silhouette. Normal lung carrion. Chronic changes. Rhythm Strip Rhythm Strip: Sinus bradycardia Rate: 46 Ectopy: None EKG Follow-up EKG: Attestation: I personally reviewed and interpreted this EKG as follows: Interpretation: No Acute Injury Pattern and Sinus Bradycardia Comments: Sinus bradycardia rate of 46 no acute signs of HI or ischemia. Discharge Plan Triage Chief Complaint: Dizziness ED Provider: Brayan Bright Dx/Rx/DC Orders Prescriptions: No Action levothyroxine 25 mcg tablet 25 mcg PO DAILY brimonidine 0.15 % drops 1 drp ophthalmic (eye) BID Rx Instructions: right eye omeprazole 40 mg capsule,delayed release(DR/EC) 40 mg PO DAILY Prolia 60 mg/mL syringe 60 mg subcut [id number] Patient Comments: STARTS END UP SEPTEMBER. mecobalamin (vitamin B12) 1,000 mcg tablet,chewable 1,000 mcg PO DAILY cholecalciferol (vitamin D3) 50 mcg (2,000 unit) capsule 50 mcg PO QDAY furosemide [Lasix] 20 mg tablet 20 mg PO .PRN PRN carvedilol 3.125 mg tablet 3.125 mg PO BID Qty: 60 11RF Rx Instructions: must administer with a meal/food hydralazine 50 mg tablet 50 mg PO TID Qty: 90 11RF Gemtesa 75 mg tablet 75 mg PO DAILY Qty: 90 3RF atorvastatin 20 MG tablet 20 mg PO QODAY Patient Comments: CHOLESTEROL timolol maleate 1 DROP drops 1 drp RIGHT EYE BID Patient Comments: EYE DROPS ferrous sulfate [Feosol] 325 mg (65 mg iron) tablet 325 mg PO DAILY ondansetron HCl 4 mg tablet 4 mg PO Q8H PRN (Reason: nausea/vomiting) Rocklatan 0.02-0.005 % drops 1 drp ophthalmic (eye) DAILY losartan 50 mg tablet 50 mg PO BID Qty: 180 4RF amiodarone 200 mg tablet 100 mg PO QDAY Qty: 60 11RF Xarelto 15 mg tablet 15 mg PO DINNER Qty: 30 11RF Rx Instructions: must administer with evening meal Primary Care Provider: Anay Barnard Referrals: Anay Barnard MD [Primary Care Provider, Internal Medicine] Print Language: Irish
--- NOTE | 2025-04-01 11:20 | RAD_ITS ---
PROCEDURE: CHEST 1 VIEW (PORTABLE) 04/01/2025 REASON FOR EXAM: CHEST PAIN TECHNIQUE: Frontal view of the chest. COMPARISON: 11/19/2024 FINDINGS: LUNGS AND PLEURA: No focal airspace consolidation. No pleural effusion or pneumothorax. HEART AND MEDIASTINUM: The cardiac silhouette is enlarged. The mediastinal contour is normal. AORTA: Calcified thoracic aorta. BONES: No acute osseous abnormality. RAD/Chest 1 View (Portable) IMPRESSION: No Acute Findings. Reading Location: [id number]
--- NOTE | 2025-04-01 11:20 | CM.ED ---
Social Work Date of referral: 04/01/25 Reason for referral: Advanced Care Directives (ACD's) not in place. Referred by: Social Work identification Patient provided consent to social work visit. Accounting Tutor requested patient to bring in a copy of ACD's when able which patient was agreeable to. Margie Bryant, MANAGER OF ENVIRONMENTAL SERVICES, [employer]
--- OUTSIDE RECORDS SUMMARY | 2025-04-01 11:35 | XMS RPT_ITS | CCD ---
Author Organization [facility] Care Team Providers Care [employer] Attendant Name Role Phone Anay Schuler MD Primary Care Provider Dr. Anay Schuler Primary Care Provider Dr. Anay Schuler Referring Provider Arabella SOLIZ, ENVIRONMENTAL ISSUES INSTRUCTOR-C Celeste Crowe Attending Provider [phone] Anay Schuler MD Primary Care Provider Dr. Woo Tucker Emergency Provider Saad, Dr. Sarah Olsen Admit Provider Saad, Dr. Sarah Olsen Other Provider Dr. Neil Arroyo Other Provider Friend, Dr. Yan Attending Provider Dr. Neil Arroyo Attending Provider Dr. Sarah Nash Attending Provider Saad, Dr. Sarah Olsen Referring Provider Dr. Brigido Frey Attending Provider Sarah ENVIRONMENTAL ISSUES INSTRUCTOR, ENVIRONMENTAL ISSUES INSTRUCTOR-C [place] Attending Provider Michi ENVIRONMENTAL ISSUES INSTRUCTOR, ENVIRONMENTAL ISSUES INSTRUCTOR-C Ning Attending Provider Dr. Anay Schuler Primary Care Provider Dr. Anay Schuler Referring Provider Arabella SOLIZ, ENVIRONMENTAL ISSUES INSTRUCTOR-C Celeste Crowe Attending Provider [phone] Dr. Woo Tucker Emergency Provider [phone] Dr. Sarah Nash Admit Provider Saad, Dr. Sarah Olsen Referring Provider Saad, Dr. Sarah Olsen Other Provider Dr. Neil Arroyo Other Provider Karina, Dr. Yan Attending Provider Dr. Brigido Frey Attending Provider Dr. Neil Arroyo Attending Provider [phone] Korbella, Dr. Sarah Olsen Attending Provider Sarah ENVIRONMENTAL ISSUES INSTRUCTOR, ENVIRONMENTAL ISSUES INSTRUCTOR-C [place] Attending Provider Michi ENVIRONMENTAL ISSUES INSTRUCTOR, ENVIRONMENTAL ISSUES INSTRUCTOR-C Ning Attending Provider Dr. Akosua Sewell Admit Provider Dr. Akosua Sewell Attending Provider Dr. Akosua Sewell Other Provider Dr. Brigido Frey Other Provider Dr. Chong Yeboah Attending Provider Unavailable Dr. Chong Yeboah Other Provider Unavailable Dr. Dacia Sewell Other Provider Dr. Pb Granado Attending Provider Anay Schuler MD Primary Care Provider Dr. Anay Schuler Primary Care Provider Dr. Anay Schuler Referring Provider Arabella ENVIRONMENTAL ISSUES INSTRUCTOR, ENVIRONMENTAL ISSUES INSTRUCTOR-C Celeste Crowe Attending Provider [phone] Dr. Woo Tucker Emergency Provider Dr. Brigido Frey Attending Provider Saad, Dr. Sarah Olsen Attending Provider [phone] Saad, Dr. Sarah Olsen Other Provider Dr. Anay Schuler Primary Care Provider Dr. Anay Schuler Referring Provider Sarah ENVIRONMENTAL ISSUES INSTRUCTOR, ENVIRONMENTAL ISSUES INSTRUCTOR-Carolyne Clark Attending Provider Evon, Dr. Cueva Primary Care Provider Evon, Dr. Cueva Referring Provider Dr. Brigido Frey Attending Provider Evon, Dr. Cueva Primary Care Provider Evon, Dr. Cueva Referring Provider Dr. Brigido Frey Attending Provider Arabella ENVIRONMENTAL ISSUES INSTRUCTOR, ENVIRONMENTAL ISSUES INSTRUCTORYeniC Celeste Crowe Attending Provider Friend, Dr. Yan Attending Provider Karina, Dr. Yan Other Provider Evon FERNANDEZ, Anay Primary Care Provider Cynthia, Fredis S Unavailable Friend Yuriy NAGY Unavailable ANAY SCHULER Primary Care Unavailable CYNTHIA, FREDIS S Referring Unavailable MAURA GILES Attending Unavailable Cynthia, Gordo S Unavailable Friend Yuriy NAGY Unavailable Cynthia FERNANDEZ, Fredis S Unavailable Dr. Anay Schuler Primary Care Provider Evon, Dr. Cueva Referring Provider Dr. Terry Basilio Attending Provider Dr. Margie Kahn Emergency Provider Dr. Akosua Sewell Admit Provider Dr. Akosua Sewell Attending Provider Dr. Akosua Sewell Other Provider Dr. Pb Granado Attending Provider Dr. Nirav Cain Attending Provider Dr. Nirav Cain Other Provider David MCCANN, SIOBHAN Crowe Attending Provider Dr. Anay Schuler Primary Care Provider Dr. Margie Kahn Emergency Provider Dr. Akosua Sewell Admit Provider Dr. Akosua Sewell Attending Provider Dr. Akosua Sewell Other Provider Dr. Pb Granado Attending Provider Dr. Nirav Cain Attending Provider Dr. Niarv Cain Other Provider Dr. Anay Schuler Referring Provider SIOBHAN Rodriguez Attending Provider Dr. Terry Basilio Attending Provider Evon FERNANDEZ, Anay Primary Care Provider Megha Mahoney PA-C Unavailable Older DIRECTOR TRANSLATION.BILLING AND ACCOUNTING STAFF ASSISTANT, Silvio Unavailable Blanca DUDLEY, Kaylynn Unavailable Evon FERNANDEZ, Dr. Cueva Primary Care Provider Evon FERNANDEZ, Dr. Cueva Referring Provider Dr. Terry Basilio MD Attending Provider Dr. Vincent Chan MD Attending Provider Dr. Vincent Chan MD Emergency Provider Ethan FERNANDEZ, Dr. Inocencia Degroot Attending Provider Ethan FERNANDEZ, Dr. Inocencia Degroot Admit Provider Evon FERNANDEZ, Dr. Cueva Primary Care Provider Ethan FERNANDEZ, Dr. Inocencia Degroot Other Provider Timmy FERNANDEZ, Dr. James Other Provider Dr. Nirav Cain MD Attending Provider Timmy FERNANDEZ, Dr. James Attending Provider Payton FERNANDEZ, Dr. Nirav Torres Other Provider Cynthia FERNANDEZ, Dr. Mcneal Attending Provider [phone] John DENNISON, Dacia M Unavailable Unavailabl e Maru DUDLEY, Megha L Unavailable [phone] Blanca DUDLEY, Kaylynn Unavailable [phone] Evon FERNANDEZ, Dr. Cueva Referring Provider [phone] (20 sources) Dihydrofolate Reductase Inhibitor Antibacterial, Sulfonamide Antimicrobial Start: 5 End: take 1 tablet by mouth twice daily sulfamethoxazol e-trimethoprim (BACTRIM DS) 800-160 mg per tablet Indications: Dysuria Take 1 tablet by mouth two times a day for 5 days. 10 tablet 10/08/2024 10/13/2024 Active Start: 04-04-2022 End: 04-18-2022 Sulfamethoxazole-Trimethopri m (Bactrim Ds) 800-160 mg tablet Discontinued 1 {tbl} PO TWICE A DAY 10 5 0 April 04, 2022 12:00am April 18, 2022 1:00pm Start: 04-04-2022 End: 04-18-2022 12 hr timolol 5 mg/ml ophthalmic solution (20 sources) beta-Adrenergic Alejandra Start: 12-23-2017 timolo l maleate (TIMOPTIC) 0.5 % ophthalmic solution Use 1 Drop in the right eye twice daily. 1 12/23/2017 Active Start: 12-23-2017 timolol maleat e (TIMOPTIC) 0.5 % ophthalmic solution Use 1 Drop in the right eye twice daily. 1 12/23/2017 Active Start: 12-06-2016 Timolol Maleat e 1 DROP drops Active 1 NMA RIGHT EYE TWICE A DAY December 06, 2016 12:00am eye drops Start: 12-06-2016 Start: 12-06-2016 Timolol Maleat e Active 1 DRP RIGHT EYE TWICE A DAY December 06, 2016 12:00am Comment on above: Use 1 Drop in the ri ght eye twice daily. triamcinolone acetonide 0.25 mg/ml topical cream (2 sources) Corticosteroid Start: 09-28-19 End: 10-12-19 24 triamcinolone (KENALOG) 0.025 % cream Indications: Perineal rash in female Apply to affected area two times a day for 14 days. 15 g 2 09/28/2023 10/12/2023 Active Comment on above: Apply to affected ar ea two times a day for 14 days. Vibegron (16 sources) Start: 02-23-20 take 1 tablet by mouth once daily Vibegron (Gemtesa) 75 mg tablet Active 75 mg PO DAILY February 22, 2025 1:43pm bladder Start: 08-27-2024 End: 02-22-2025 take 1 tablet by mouth once daily Vibegron (Gemtesa) 75 mg tablet Discontinued 75 mg PO DAILY August 27, 2024 1:00am February 22, 2025 1:43pm bladder Start: 08-27-2024 Start: 08-27-2024 take 1 tablet by ponce th once daily Vibegron (Gemtesa) 75 mg tablet Active 75 mg PO DAILY August 27, 2024 1:00am Start: 08-27-2024 take 1 tablet by ponce th once daily Vibegron (Vibegron 75 Mg Tablet) 75 mg tablet Active 75 mg PO DAILY August 27, 2024 1:00am vibegron (GEMTESA) 75 mg tablet (20 sources) Start: 01-11-2024 take 1 tablet by mouth once daily vibegron (GEMTESA) 75 mg tablet Indications: Mixed incontinence Take 1 tablet by mouth once daily. 30 tablet 5 01/11/2024 Active Start: 01-11-2024 End: 07-09-2024 take 1 tablet by mouth once daily vibegron (GEMTESA) 75 mg tablet Indications: Mixed incontinence Take 1 tablet by mouth once daily. 30 tablet 5 01/11/2024 07/09/2024 Active (20 sources) Start: 10-30-2024 Start: 02-01-2024 End: 08-27-2024 Start: 12-06-2016 End: 11-21-2020 Completed/Discontinued Medications Medication Drug Class(es) Dates Sig (Normalized) Sig (Original) acetaminophen 325 mg / HYDROcodone bitartrate 5 mg oral tablet (20 sources) Opioid Agonist Start: 10-06-2017 End: 01-07-2018 Hydrocodone-Acetamino phen 1 TABLET tablet Discontinued 1 - 2 {tbl} PO EVERY 6 HOURS NEEDED as needed for Pain 56 5 0 October 14, 2017 12:00am January 07, 2018 12:47pm Postoperative pain Other acute postprocedural pain Start: 10-06-2017 End: 01-07-2018 Start: 10-06-2017 End: 01-07-2018 take 1 tablet by mouth every six hours as needed Hydrocodone-Acetaminophen Discontinued 1 - 2 TABLET PO EVERY 6 HOURS NEEDED 56 5 October 14, 2017 12:00am January 07, 2018 12:47pm alendronic acid 70 mg oral tablet (20 sources) Bisphosphonate Start: 12-06-2016 End: 07-09-2023 take 1 tablet by mouth every week Alendronate 70 mg tablet Discontinued 70 mg PO Q7D@0700 September 12, 2019 1:00pm May 08, 2023 3:07pm Bones every Thursday Start: 12-06-2016 End: 05-08-2023 alendronate (FOSAMAX) 70 mg tablet Once every 7 days @0700 12 tablet 3 03/14/2020 02/14/2021 Discontinued Comment on above: take 1 tablet by ponce th every week Take 1 tablet by ponce th one time a week. In AM with cup of water on empty stomach. Nothing else by mouth and stay upright for 30 min. amLODIPine 2.5 mg oral tablet (20 sources) Dihydropyridine Calcium Channel Alejandra Start: 05-29-20 End: 06-19-20 take 1 tablet by mouth once daily Amlodipine 2.5 mg tablet Discontinued 2.5 mg PO DAILY 28 05May 29, 2022 1:00am June 19, 2022 2:13pm Start: 03-26-2020 End: 04-18-2022 take 1 tablet by mouth twice daily Amlodipine 2.5 mg tablet Discontinued 2.5 mg PO TWICE A DAY March 25, 2022 2:55pm April 18, 2022 1:00pm bp Start: 07-29-2018 End: 04-18-2022 take 1 tablet by mouth once daily Amlodipine 2.5 mg tablet Discontinued 2.5 mg PO DAILY July 29, 2018 1:00am March 25, 2022 3:01pm bp Start: 02-05-2018 End: 07-29-2018 take 0.5 tablet by mouth twice daily Amlodipine 5 mg tablet Discontinued 5 mg PO .COMPLEX March 11, 2018 11:50am July 29, 2018 2:21pm 5 mg PO 0.5 tablet twice daily Start: 02-05-2018 End: 03-11-2018 take 1 tablet by mouth once daily Amlodipine 5 MG tablet Discontinued 5 mg PO DAILY 30 0 February 05, 2018 12:00am March 11, 2018 11:52am Comment on above: Take 1 tablet by ponce th twice daily. amoxicillin 875 mg / clavulanate 125 mg oral tablet (20 sources) Penicillin-class Antibacterial Start: 03-25-2022 End: 04-18-2022 Start: 03-25-2022 End: 04-18-2022 take 1 tablet by mouth twice daily Amoxicillin-Pot Clavulanate Discontinued 1 TABLET PO TWICE A DAY March 25, 2022 12:00am April 18, 2022 1:00pm Start: 03-21-2022 End: 04-18-2022 Amoxicillin-Pot Clavulanate 875-125 mg tablet Discontinued 1 {tbl} PO TWICE A DAY March 25, 2022 12:00am April 18, 2022 1:00pm Comment on above: Take 1 tablet by ponce twice daily for 7 days. apixaban 2.5 mg oral tablet (20 sources) Factor Xa Inhibitor Start: 02-23-2022 End: 04-02-2022 take 1 tablet by mouth twice daily Apixaban (Eliquis) 2.5 mg Tablet Discontinued 2.5 mg PO TWICE A DAY 60 1 February 23, 2022 12:00am March 25, 2022 4:00pm Comment on above: Take by mouth. ascorbic acid 1000 mg oral tablet (20 sources) Vitamin C Start: 11-21-2020 End: 04-18-2022 take 1 g by mouth once daily Ascorbic Acid (Vitamin C) 1,000 mg tablet Discontinued 1 g PO DAILY November 21, 2020 12:00am April 18, 2022 1:00pm supplement Start: 11-21-2020 End: 04-18-2022 take 1 g by mouth once daily Ascorbic Acid (Vitamin C) Discontinued 1 GM PO DAILY November 21, 2020 12:00am April 18, 2022 1:00pm atenolol 25 mg oral tablet (20 sources) beta-Adrenergic Alejandra Start: 12-06-2016 End: 03-11-2018 take 1 tablet by mouth once daily Atenolol 25 MG tablet Discontinued 25 mg PO DAILY December 06, 2016 12:00am March 11, 2018 11:49am brimonidine tartrate 2 mg/ml / timolol 5 mg/ml ophthalmic solution (20 sources) alpha-Adrenergic Agonist, beta-Adrenergic Alejandra End: 07-24-2023 brimonidine-timolo l (COMBIGAN) 0.2-0.5 % ophthalmic solution Use in both eyes. 07/24/2023 Discontinued brimonidine-silverio lol (COMBIGAN) 0.2-0.5 % ophthalmic solution Use in both eyes. 0 Active Comment on above: Use in both eyes. calcium carbonate 1500 mg oral tablet (20 sources) Start: 02-20-2009 End: 07-24-2023 calcium carbonate(CALTRATE 600 600 MG (1,500 MG) TAB) Take one(1) tablet twice daily. 0 02/20/2009 07/24/2023 Discontinued Comment on above: Take one(1) tablet t wice daily. calcium carbonate 1500 mg / cholecalciferol 800 unt oral tablet (20 sources) Vitamin D Start: 12-06-2016 End: 11-21-2020 Calcium Carbonate-Vitamin D3 1 EACH tablet Discontinued 1 NMA PO DAILY December 06, 2016 12:00am November 21, 2020 1:04pm Supplement Start: 12-06-2016 End: 11-21-2020 Start: 12-06-2016 End: 11-21-2020 Calcium Carbonate-Vitamin D3 Discontinued 1 EACH PO DAILY December 06, 2016 12:00am November 21, 2020 1:04pm clobetasol propionate 0.0005 mg/mg topical ointment (20 sources) Corticosteroid Start: 12-06-2016 End: 04-18-2022 apply 15 g topically three times weekly Clobetasol 0.05 % ointment Discontinued 15 g TOPICAL .COMPLEX March 25, 2022 2:58pm April 18, 2022 1:01pm vaginal cream 15 grams topically 3 times per week; Start: 12-06-2016 End: 03-25-2022 Clobetasol 15 GM ointment Di scontinued 15 g TP DAILY December 06, 2016 12:00am Oriana 27th, 2022 3:01pm vaginal cream Start: 12-06-2016 End: 07-24-2023 Start: 12-06-2016 End: 07-24-2023 Start: 12-06-2016 End: 04-18-2022 Comment on above: Apply 1 application to affected area 3 times a WEEK. TO AFFECTED AREA. Apply 1 application to affected area twice daily. TO AFFECTED AREA. furosemide 20 mg oral tablet (20 sources) Loop Diuretic Start: 8 End: take 1 tablet by mouth every other day as needed Furosemide 20 mg tablet Discontinued 20 mg PO EVERY OTHER DAY as needed for diuresis June 14, 2024 1:55pm October 13, 2024 10:37am Start: 10-13-2017 End: 11-11-2024 take 1 tablet by mouth once daily Furosemide 20 mg tablet Discontinued 20 mg PO .COMPLEX 93 3 November 07, 2024 5:54pm November 11, 2024 2:02pm 20 mg orally 2 tablets (40 mg) daily for 3 days, then resume 1 tablet daily; Start: 10-13-2017 End: 11-11-2024 Furosemide 20 mg tablet Disc ontinued 40 mg PO .COMPLEX July 17, 2022 6:10pm September 24, 2022 4:36pm Dose increased to 40 mg a day. 40 mg orally patient to alternate 40mg with 20mg every other day; Start: 10-13-2017 End: 05-21-2022 take 40 mg by mouth every other day Furosemide Discontinued 40 MG PO every other day March 28, 2022 8:51am May 21, 2022 4:02pm Start: 10-13-2017 End: 11-11-2024 Start: 10-13-2017 End: 11-11-2024 Comment on above: Take 40 mg 3 times a Week for swelling. Take 2 tablets by mo [facility] once daily. Take 40 mg 3 times a Week for swelling. Take 1 tablet by ponce once daily. Take 40 mg 3 times a Week for swelling. Take 1 tablet by ponce once daily. Take 1 tablet by ponce every other day. gabapentin 100 mg oral capsule (20 sources) Anti-epileptic Agent Start: 03-07-2020 End: 11-21-2020 Gabapentin 100 mg capsule Discontinued PO March 07, 2020 12:00am November 21, 2020 1:04pm Start: 10-21-2019 End: 12-03-2020 hydrocortisone 0.025 mg/mg topical ointment (20 sources) Corticosteroid Start: 11-11-2018 End: 01-27-2023 hydrocortisone 2.5 % ointment Indications: Contact dermatitis, unspecified contact dermatitis type, unspecified trigger Apply 1 application to affected area twice daily. 20 g 2 11/11/2018 01/27/2023 Discontinued (Other) Comment on above: Apply 1 application to affected area twice daily. hydrOXYzine hydrochloride 25 mg oral tablet (20 sources) Antihistamine Start: 09-28-2023 End: 11-28-2024 take 1 tablet by mouth every four hours as needed hydrOXYzine HCl (ATARAX) 25 mg tablet Indications: Perineal rash in female Take 1 tablet by mouth every 4 hours as needed for itching/rash. 15 tablet 1 09/28/2023 11/28/2024 Discontinued (Course of therapy completed) Comment on above: Take 1 tablet by ponce every 4 hours as needed for itching/rash. 24 hr isosorbide mononitrate 30 mg extended release oral tablet (20 sources) Nitrate Vasodilator Start: 02-05-2018 End: 03-11-2018 take 1 tablet by mouth once daily Isosorbide Mononitrate 30 MG tablet Discontinued 30 mg PO DAILY 30 0 February 05, 2018 12:00am March 11, 2018 11:52am latanoprost 0.05 mg/ml ophthalmic solution (20 sources) Prostaglandin Analog Start: 12-06-2016 End: 10-30-2024 Latanoprost 1 DROP bottle Discontinued 1 NMA OPHTHALMIC TWICE A DAY December 06, 2016 12:00am October 30, 2024 1:18pm eye drops BOTH EYES Start: 12-06-2016 End: 10-30-2024 Start: 12-06-2016 Latanoprost Ac tive 1 DRP EACHEYE AT BEDTIME December 06, 2016 12:00am take 1 drop(s) into the eye(s) once daily at bedtime latanoprost (XALATAN) 0.005 % ophthalmic solution 1 Drop daily at bedtime. Active Comment on above: 1 Drop daily at bedt awa. loperamide hydrochloride 2 mg oral capsule (20 sources) Opioid Agonist Start: 04-04-20 End: 05-21-20 take 1 capsule by mouth every six hours as needed Loperamide (Imodium A-D) 2 mg capsule Discontinued 2 mg PO EVERY 6 HOURS as needed for loose stool April 04, 2022 12:00am May 21, 2022 4:01pm losartan potassium 25 mg oral tablet (20 sources) Angiotensin 2 Receptor Alejandra Start: 07-11-19 End: 07-18-19 take 1 tablet by mouth twice daily Losartan 50 mg tablet Active 50 mg PO TWICE A DAY 180 July 11, 2022 4:50pm bp Start: 04-25-2022 End: 05-04-2023 take 1 tablet by mouth once daily losartan (COZAAR) 50 mg tablet take 1 tablet by mouth once daily 90 tablet 3 07/01/2022 05/04/2023 Discontinued Start: 03-25-2022 End: 07-11-2022 take 2 tablets by mouth once daily Losartan 25 mg tablet Discontinued 50 mg PO DAILY May 01, 2022 1:04pm July 11, 2022 4:48pm blood pressure Start: 03-25-2022 End: 07-11-2022 take 2 tablets by mouth twice daily Losartan 25 mg tablet Discontinued 50 mg PO TWICE A DAY July 11, 2022 4:47pm July 11, 2022 4:49pm blood pressure Start: 03-25-2022 End: 07-11-2022 Start: 03-25-2022 End: 07-11-2022 Start: 03-10-2022 End: 05-07-2022 take 1 tablet by mouth once daily Losartan 25 mg tablet Discontinued 25 mg PO DAILY March 25, 2022 12:00am May 01, 2022 1:05pm Start: 12-06-2016 End: 03-25-2022 take 1 tablet by mouth once daily Losartan 100 MG tablet Discontinued 100 mg PO DAILY December 06, 2016 12:00am March 25, 2022 2:57pm Blood pressure/heart Start: 12-06-2016 End: 03-25-2022 take 0.5 tablet by mouth once daily losartan (COZAAR) 100 mg tablet Take 0.5 tablets by mouth once daily. 90 tablet 3 09/06/2021 03/10/2022 Discontinued Comment on above: Take 0.5 tablets by mouth once daily. Take 1 tablet by ponce th once daily. take 1 tablet by ponce th once daily Take 1 tablet by ponce th two times a day. metoprolol tartrate 25 mg oral tablet (20 sources) beta-Adrenergic Alejandra Start: 11-14-2024 End: 11-28-2024 take 1 tablet by mouth twice daily Metoprolol Tartrate 25 mg tablet Discontinued 25 mg PO TWICE A DAY 60 November 14, 2024 12:00am November 25, 2024 2:07pm Start: 10-24-2024 End: 11-03-2024 take 1 tablet by mouth twice daily Metoprolol Tartrate 50 mg tablet Discontinued 50 mg PO TWICE A DAY 60 October 24, 2024 12:00am October 25, 2024 1:42pm Start: 10-24-2024 End: 11-03-2024 take 2 tablets by mouth twice daily Metoprolol Tartrate 50 mg tablet Discontinued 100 mg PO TWICE A DAY 60 October 25, 2024 1:42pm November 03, 2024 11:04am Start: 07-07-2022 End: 07-10-2022 take 1 tablet by mouth once daily Metoprolol Tartrate 50 mg tablet Discontinued 50 mg PO DAILY July 07, 2022 1:00am July 10, 2022 10:57am Start: 07-07-2022 End: 07-10-2022 Start: 04-18-2022 End: 05-05-2022 take 1 tablet by mouth twice daily Metoprolol Succinate 50 mg tablet extended release 24 hr Discontinued 50 mg PO TWICE A DAY May 01, 2022 9:16pm May 05, 2022 4:22pm blood pressure Start: 04-09-2022 End: 12-10-2022 take 1 tablet by mouth once daily Metoprolol Succinate 50 mg tablet extended release 24 hr Discontinued 50 mg PO DAILY April 18, 2022 12:00am May 01, 2022 1:05pm Comment on above: Take 1 tablet by ponce once daily. Wnvotzjy-Hsn-Jt-Lycope n-Lutein (19 sources) Start: 12-06-2016 End: 11-21-2020 Jchoykvp-Rhg-Sj-Lycopen-Dian tein Discontinued 1 EACH PO DAILY December 05, 2016 11:00pm November 21, 2020 12:04pm Start: 12-06-2016 End: 11-21-2020 Hjnpaftn-Cqc-Tx-Lycopen-Lute in Discontinued 1 EACH PO DAILY December 06, 2016 12:00am November 21, 2020 1:04pm Fcufhhoc-Ibv-Tt-Lycopen-Lute in 1 EACH tablet (6 sources) Start: 12-06-2016 End: 11-21-2020 Hiyxkmdh-Drh-Ul-Lycopen-Lute in 1 EACH tablet Discontinued 1 NMA PO DAILY December 06, 2016 12:00am November 21, 2020 1:04pm supplement Start: 12-06-2016 End: 11-21-2020 Saajgitg-Kuj-Rz-Lycopen-Lute in 1 EACH tablet Discontinued 1 NMA PO DAILY December 06, 2016 12:00am November 21, 2020 1:04pm nitrofurantoin, macrocrystals 25 mg / nitrofurantoin, monohydrate 75 mg oral capsule (9 sources) Nitrofuran Antibacterial Start: 10-07-2024 End: 10-14-2024 take 1 capsule by mouth twice daily nitrofurantoin monohydrate and macrocrystal (MACROBID) 100 mg capsule Take 1 capsule by mouth two times a day for 7 days. 14 capsule 10/07/2024 10/08/2024 Discontinued Start: 09-26-2024 End: 10-01-2024 take 1 capsule by mouth twice daily nitrofurantoin monohydrate and macrocrystal (MACROBID) 100 mg capsule Indications: Frequency of urination , Dysuria , Leukocytes in urine Take 1 capsule by mouth two times a day for 5 days. 10 capsule 09/26/2024 10/01/2024 Active Start: 06-10-2024 End: 06-15-2024 take 1 capsule by mouth twice daily nitrofurantoin monohydrate and macrocrystal (MACROBID) 100 mg capsule Indications: Urinary frequency Take 1 capsule by mouth two times a day for 5 days. 10 capsule 06/10/2024 06/15/2024 Active Start: 08-04-2022 End: 08-09-2022 take 1 capsule by mouth twice daily at mealtime nitrofurantoin monohydrate and macrocrystal (MACROBID) 100 mg capsule Take 1 capsule by mouth twice daily with meals for 5 days. 10 capsule 0 08/04/2022 08/09/2022 Active Start: 09-23-2021 End: 09-28-2021 take 1 capsule by mouth twice daily nitrofurantoin monohydrate and macrocrystal (MACROBID) 100 mg capsule Take 1 capsule by mouth twice daily for 5 days. 10 capsule 0 09/23/2021 09/28/2021 Active Comment on above: Take 1 capsule by mo ut twice daily for 5 days. Take 1 capsule by mo [facility] twice daily with meals for 5 days. omeprazole 40 mg delayed release oral capsule (20 sources) Proton Pump Inhibitor Start: 03-25-2022 End: 11-11-2024 Omeprazole 40 mg capsule,delayed release(DR/EC) Discontinued 20 mg PO DAILY June 14, 2024 1:56pm November 11, 2024 2:02pm gerd Start: 03-11-2021 End: 2024 take 1 capsule by mouth once daily Omeprazole 40 mg capsule,delayed release(DR/EC) Discontinued 40 mg PO DAILY March 25, 2022 12:00am June 14, 2024 1:56pm gerd Start: 07-29-2018 End: 03-25-2022 take 1 capsule by mouth once daily Omeprazole 20 mg capsule,delayed release(DR/EC) Discontinued 20 mg PO DAILY July 29, 2018 1:00am March 25, 2022 2:58pm gerd Comment on above: Take 1 capsule by [facility] daily before breakfast. 1/2 hr before meal. polyethylene glycol 3350 62291 mg powder for oral solution (15 sources) Osmotic Laxative Start: 6 End: 2 polyethylene glycol 3350 (MIRALAX, GLYCOLAX) 17 gram/dose powder Indications: Constipation, unspecified constipation type Drink a mix of 1 scoop in 8oz of water/beverage once daily as needed for constipation. 1 Bottle 3 05/06/2016 04/02/2022 Discontinued (Discontinued by Patient) Comment on above: Drink a mix of 1 sco op in 8oz of water/beverage once daily as needed for constipation. potassium chloride 10 meq extended release oral capsule (20 sources) Start: 5 End: 5 take 2 capsules by mouth once daily Potassium Chloride 10 mEq capsule, extended release Discontinued 20 meq PO DAILY August 27, 2024 1:00am February 22, 2025 1:31pm On Hold: hold until she sees Dr. Kingston take 2 capsules by mouth once daily Start: 02-01-2024 End: 08-27-2024 take 2 capsules by mouth once daily Potassium Chloride 10 mEq capsule, extended release Discontinued 0 .ROUTE .COMPLEX 180 3 February 01, 2024 10:04am August 27, 2024 1:02am take 2 capsules by mouth once daily Start: 07-13-2023 End: 02-01-2024 take 1 capsule by mouth twice daily Potassium Chloride 10 mEq capsule, extended release Discontinued 10 meq PO TWICE A DAY July 13, 2023 1:00am February 01, 2024 10:04am supplement Start: 07-13-2023 take 10 mEq by mouth once josephine y Potassium Chloride Active 10 MEQ PO DAILY July 13, 2023 12:00am Start: 02-17-2023 End: 02-01-2024 take 2 capsules by mouth once daily Potassium Chloride 10 mEq capsule, extended release Discontinued 20 meq PO DAILY 180 3 February 17, 2023 12:00am July 13, 2023 3:07pm Start: 02-17-2023 End: 07-13-2023 take 20 mEq by mouth once daily Potassium Chloride Dis continued 20 MEQ PO DAILY February 17, 2023 12:00am July 13, 2023 3:07pm Start: 10-08-2022 End: 01-07-2023 take 1 tablet by mouth twice daily potassium chloride (K-TAB) 10 mEq tablet Take 1 tablet by mouth twice daily. 60 tablet 2 01/07/2023 Active Start: 10-07-2022 End: 10-08-2022 potassium chloride SR (MICRO -K) 10 mEq CR capsule Indications: Nausea Take 2 capsules by mouth once daily. 180 capsule 3 10/07/2022 10/08/2022 Discontinued Start: 07-17-2022 End: 02-17-2023 take 20 mEq by mouth once daily Potassium Chloride Dis continued 20 MEQ PO DAILY 90 July 17, 2022 6:08pm February 17, 2023 3:48pm Start: 03-11-2021 End: 10-07-2022 take 1 capsule by mouth once daily potassium chloride SR (MICRO-K) 10 mEq CR capsule Indications: Nausea Take 1 capsule by mouth once daily. 90 capsule 3 03/11/2021 10/07/2022 Discontinued Start: 05-12-2019 End: 03-25-2022 Potassium Chloride 10 mEq ta blet extended release Discontinued 10 meq PO .COMPLEX May 12, 2019 12:29pm March 25, 2022 3:01pm supplement 10 mEq PO when takes Lasix; Start: 03-11-2018 End: 07-17-2022 take 1 tablet by mouth once daily Potassium Chloride 10 mEq tablet extended release Discontinued 10 meq PO DAILY 90 3 April 18, 2022 1:32pm July 17, 2022 6:11pm supplement Start: 02-05-2018 End: 03-11-2018 take 2 tablets by mouth every other day Potassium Chloride 10 MEQ tablet extended release Discontinued 20 meq PO EVERY OTHER DAY 60 0 February 05, 2018 12:05pm March 11, 2018 11:52am supplement Start: 02-05-2018 End: 03-11-2018 take 20 mEq by mouth every other day Potassium Chloride Discontinued 20 MEQ PO EVERY OTHER DAY 60 February 05, 2018 12:05pm March 11, 2018 11:52am Start: 10-13-2017 End: 02-17-2023 take 2 tablets by mouth once daily Potassium Chloride 10 mEq tablet extended release Discontinued 20 meq PO DAILY 90 3 July 17, 2022 6:08pm February 17, 2023 3:48pm supplement Start: 10-13-2017 End: 02-05-2018 take 1 tablet by mouth every other day Potassium Chloride 10 MEQ tablet extended release Discontinued 10 meq PO EVERY OTHER DAY October 13, 2017 12:00am February 05, 2018 12:05pm supplement Comment on above: Take 1 capsule by mo [facility] once daily. Take 1 tablet by ponce twice daily. Take 2 capsules by m out once daily. predniSONE 10 mg oral tablet (20 sources) Start: 07-07-2022 End: 07-10-2022 Prednisone 10 mg tablet Discontinued 10 mg PO As Directed July 07, 2022 1:00am July 10, 2022 10:57am see taper instructions Start: 07-07-2022 End: 07-10-2022 Start: 04-09-2022 End: 12-10-2022 predniSONE (DELTASONE) 10 mg tablet TAKE ORALLY DIRECTED. 30 MG FOR 3 DAYS, 20 MG FOR 3 DAYS, 10 MG FOR 7 days. TAKE WITH FOOD 22 tablet 04/09/2022 12/10/2022 Discontinued (Discontinued by Patient) Comment on above: TAKE ORALLY DIREC ERNST. 30 MG FOR 3 DAYS, 20 MG FOR 3 DAYS, 10 MG FOR 7 days. TAKE WITH FOOD rivaroxaban 15 mg oral tablet (20 sources) Factor Xa Inhibitor Start: 2 End: take 1 tablet by mouth at dinner Rivaroxaban (Xarelto) 15 mg tablet Discontinued 15 mg PO WITH DINNER 30 April 22, 2023 10:06am April 25, 2024 10:02am blood thinner must administer with evening meal Comment on above: Take 15 mg by mouth once daily. Take 15 mg by mouth daily with dinner. terazosin 2 mg oral capsule (20 sources) alpha-Adrenergic Alejandra Start: End: take 1 capsule by mouth at bedtime Terazosin 2 mg capsule Discontinued 2 mg PO AT BEDTIME July 13, 2023 1:00am August 20, 2023 2:55pm bp Start: 07-13-2023 End: 08-20-2023 Start: 10-06-2017 End: 03-11-2018 Terazosin 2 MG capsule Disco ntinued 20 mg PO AT BEDTIME October 06, 2017 12:00am March 11, 2018 11:51am BP Start: 10-06-2017 End: 03-11-2018 Start: 10-06-2017 End: 03-11-2018 take 20 mg by mouth at bedtime Terazosin Discontinued 20 MG PO AT BEDTIME October 06, 2017 12:00am March 11, 2018 11:51am travoprost 0.04 mg/ml ophthalmic solution (20 sources) Prostaglandin Analog Start: 12-10-2012 End: 11-28-2024 TRAVATAN Z 0.004 % Drop daily at bedtime. 12/10/2012 11/28/2024 Discontinued (Course of therapy completed) Comment on above: daily at bedtime. traZODone hydrochloride 50 mg oral tablet (16 sources) Serotonin Reuptake Inhibitor Start: 07-13-2023 End: 08-20-2023 Trazodone 50 mg tablet Discontinued mg PO NEEDED July 13, 2023 1:00am August 20, 2023 2:55pm insomnia Start: 07-13-2023 End: 08-20-2023 Start: 07-13-2023 End: 08-20-2023 Trazodone Discontinued MG PO NEEDED July 13, 2023 1:00am August 20, 2023 2:55pm Problems Active Problems Problem Classification Problem Date Documented Da te Episodic/Chronic Acute myocardial infarction (20 sources) Myocardial infarction; Translations: [Non-ST elevation (NSTEMI) myocardial infarction] Chronic Cancer of other female genital organs (20 sources) Vulval intraepithelial neoplasia grade 3; 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] Onset: 0 06-14-2020 Chronic Cardiac dysrhythmias (20 sources) Atrial fibrillation; Translations: [Unspecified atrial fibrillation] Onset: 2 Chronic Chronic kidney disease (20 sources) Chronic kidney disease stage 4; Translations: [Chronic kidney disease, stage 4 (severe)] Onset: 1 06-11-2021 Chronic Chronic kidney disease (4 sources) Chronic kidney disease; Translations: [Hypertensive kidney disease with stage 3b chronic kidney disease (HCC)] Onset: 2 Congestive heart failure; nonhypertensive (20 sources) Congestive heart failure; Translations: [Heart failure, unspecified] Onset: 4 Chronic Deficiency and other anemia (20 sources) Anemia; Translations: [Anemia, unspecified] Onset: 2 Episodic Diabetes mellitus without complication (20 sources) High hemoglobin A1c level; Translations: [Other abnormal glucose] 04-09-2023 Episodic Disorders of lipid metabolism (20 sources) Mixed hyperlipidemia; Translations: [Mixed hyperlipidemia] Onset: 7 Resolved: 6 08-06-2016 Chronic E Codes: Fall (20 sources) Fall; Translations: [Unspecified fall, initial encounter] 07-13-2023 Episodic Esophageal disorders (20 sources) Gastroesophageal reflux disease; Translations: [Gastro-esophageal reflux disease without esophagitis] Onset: 8 09-06-2007 Chronic Essential hypertension (20 sources) Essential hypertension; Translations: [Essential (primary) hypertension] Onset: 8 01-29-2018 Chronic Comment on above: CONTROLLED WITH MEDS Fluid and electrolyte disorders (20 sources) Hypokalemia; Translations: [Hypokalemia] Onset: 8 Resolved: 7 Episodic Gastrointestinal hemorrhage (20 sources) Gastrointestinal hemorrhage; Translations: [Gastrointestinal hemorrhage, unspecified] Onset: 2 Episodic Genitourinary symptoms and ill-defined conditions (20 sources) Incontinence; Translations: [Mixed incontinence] Onset: 9 Resolved: 7 01-11-2024 Chronic Genitourinary symptoms and ill-defined conditions (20 sources) Urgent desire to urinate; Translations: [Urgency of urination] Onset: 9 Resolved: 0 06-14-2020 Episodic Hypertension with complications and secondary hypertension (20 sources) Chronic kidney disease stage 3 due to hypertension; Translations: [Hypertensive chronic kidney disease with stage 1 through stage 4 chronic kidney disease, or unspecified chronic kidney disease] Onset: 2 12-06-2021 Chronic Immunizations and screening for infectious disease (3 sources) Needs influenza immunization; Translations: [Encounter for immunization] Episodic Nausea and vomiting (8 sources) Nausea; Translations: [Nausea] Onset: 5 Episodic Noninfectious gastroenteritis (20 sources) Chronic diarrhea; Translations: [Noninfective gastroenteritis and colitis, unspecified] 04-12-2022 Episodic Nonspecific chest pain (20 sources) Chest pain; Translations: [Chest pain, unspecified] Episodic Nutritional deficiencies (20 sources) Vitamin D deficiency; Translations: [Vitamin D deficiency, unspecified] Onset: 0 06-13-2010 Chronic Nutritional deficiencies (5 sources) Cobalamin deficiency; Translations: [Deficiency of other specified B group vitamins] Onset: 4 05-30-2024 Episodic Osteoporosis (20 sources) Primary osteoporosis; Translations: [Age-related osteoporosis without current pathological fracture] Onset: 5 Resolved: 0 02-02-2023 Chronic Other aftercare (1 source) Long-term current use of bisphosphonates; Translations: [jail (current) use of bisphosphonates] Episodic Other aftercare (1 source) 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; Translations: [Anticoagulant long-term use] Onset: 3 Episodic Other aftercare (1 source) Long-term current use of diuretic; Translations: [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] 11-14-2024 Episodic Other aftercare (1 source) Patient encounter status; Translations: [Other care home (current) drug therapy] 12-12-2024 Episodic Other aftercare (1 source) Other care home (current) drug therapy; Translations: [Medication management] Onset: 5 Episodic Other circulatory disease (20 sources) Low blood pressure; Translations: [Hypotension, unspecified] Episodic Other circulatory disease (7 sources) Hypotension, unspecified; Translations: [Hypotension, unspecified] Episodic Other connective tissue disease (1 source) History of osteoporosis; Translations: [Personal history of other diseases of the musculoskeletal system and connective tissue] Episodic Other connective tissue disease (20 sources) Swelling of lower limb; Translations: [Other specified soft tissue disorders] 07-02-2022 Episodic Other connective tissue disease (17 sources) Foot pain; Translations: [Pain in right foot] 07-13-2023 Episodic Other connective tissue disease (3 sources) Pain in right foot; Translations: [Pain in limb] 07-13-2023 Episodic Other connective tissue disease (1 source) Postexertional fatigue; Translations: [Other specified disorders of muscle] 08-02-2024 Episodic Other diseases of bladder and urethra (4 sources) Overactive bladder; Translations: [Overactive bladder] 02-22-2025 Chronic Other diseases of bladder and urethra (1 source) Overactive bladder; Translations: [Overactive bladder] Onset: 5 Chronic Other diseases of kidney and ureters (20 sources) Renal impairment; Translations: [Disorder of kidney and ureter, unspecified] 05-08-2022 Episodic Other diseases of kidney and ureters (6 sources) Disorder of kidney and ureter, unspecified; Translations: [Unspecified disorder of kidney and ureter] Episodic Other diseases of veins and lymphatics (20 sources) Lymphedema of bilateral lower limbs; Translations: [Lymphedema, not elsewhere classified] Onset: 3 05-08-2022 Chronic Other diseases of veins and lymphatics (2 sources) Lymphedema, not elsewhere classified; Translations: [Other lymphedema] Chronic Other ear and sense organ disorders (1 source) Bilateral hearing loss; Translations: [Unspecified hearing loss, bilateral] 01-11-2024 Chronic Other ear and sense organ disorders (1 source) Hearing loss; Translations: [Unspecified hearing loss, unspecified ear] 05-30-2024 Chronic Other ear and sense organ disorders (1 source) Unspecified hearing loss, unspecified ear; Translations: [Hearing loss, unspecified hearing loss type, unspecified laterality] Onset: 4 Chronic Other fractures (20 sources) Stress fracture; Translations: [Stress fracture, unspecified site, initial encounter for fracture] 02-04-2018 Episodic Other gastrointestinal disorders (20 sources) Occult blood in stools; Translations: [Other fecal abnormalities] Episodic Other gastrointestinal disorders (13 sources) Other fecal abnormalities; Translations: [Nonspecific abnormal findings in stool contents] Episodic Other gastrointestinal disorders (4 sources) Diarrhea; Translations: [Diarrhea, unspecified] Episodic Other gastrointestinal disorders (1 source) Personal history of other diseases of the digestive system; Translations: [History of GI bleed] Onset: Episodic Other hematologic conditions (20 sources) Raised cardiac enzyme or marker; Translations: [Other specified abnormalities of plasma proteins] 03-03-2022 Episodic Other hematologic conditions (16 sources) Other specified abnormalities of plasma proteins; Translations: [Other abnormal blood chemistry] Episodic Other hematologic conditions (5 sources) Protein level - finding; Translations: [Other specified abnormalities of plasma proteins] 06-12-2022 Episodic Other liver diseases (20 sources) Elevated liver enzymes level; Translations: [Abnormal levels of other serum enzymes] 05-08-2022 Episodic Other liver diseases (20 sources) Cardiac enzymes abnormal; Translations: [Abnormal levels of other serum enzymes] 05-08-2022 Episodic Other liver diseases (7 sources) Abnormal levels of other serum enzymes; Translations: [Other nonspecific abnormal serum enzyme levels] Episodic Other lower respiratory disease (20 sources) Cough; Translations: [Acute cough] Episodic Other lower respiratory disease (20 sources) Dyspnea on exertion; Translations: [Other forms of dyspnea] 05-08-2022 Episodic Other lower respiratory disease (12 sources) Other forms of dyspnea; Translations: [Other respiratory abnormalities] Episodic Other lower respiratory disease (5 sources) Dyspnea; Translations: [Shortness of breath] Episodic Other lower respiratory disease (1 source) H/O: pneumonia; Translations: [Personal history of pneumonia (recurrent)] Episodic Other lower respiratory disease (17 sources) Hypoxia; Translations: [Hypoxemia] 07-13-2023 Episodic Other lower respiratory disease (3 sources) Hypoxemia; Translations: [Hypoxemia] 07-13-2023 Episodic Other lower respiratory disease (6 sources) Cough; Translations: [Acute cough] 04-10-2022 Episodic Other lower respiratory disease (3 sources) Abnormal breath sounds; Translations: [Other abnormalities of breathing] 12-12-2024 Episodic Other lower respiratory disease (1 source) Dyspnea, unspecified; Translations: [Dyspnea, unspecified type] Onset: 5 Episodic Other lower respiratory disease (1 source) Other abnormalities of breathing; Translations: [Abnormal breath sounds] Onset: 5 Episodic Other nutritional; endocrine; and metabolic disorders (20 sources) Hypomagnesemia; Translations: [Hypomagnesemia] Onset: 2 06-11-2022 Chronic Other skin disorders (20 sources) Localized scleroderma; 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]] Onset: 9 06-04-2009 Chronic Other skin disorders (1 source) Excessive sweating; Translations: [Generalized hyperhidrosis] Episodic Other skin disorders (1 source) Eruption; Translations: [Rash and other nonspecific skin eruption] 09-28-2023 Episodic Other skin disorders (14 sources) Sweating 07-31-2022 Episodic Pleurisy; pneumothorax; pulmonary collapse (20 sources) Pleural effusion; Translations: [Pleural effusion, not elsewhere classified] Episodic Pulmonary heart disease (20 sources) Pulmonary hypertension; Translations: [Pulmonary hypertension, unspecified] Onset: 7 05-07-2017 Chronic Residual codes; unclassified (20 sources) Bilateral lower limb edema; Translations: [Localized edema] Episodic Residual codes; unclassified (3 sources) Localized edema; Translations: [Edema] Episodic Spondylosis; intervertebral disc disorders; other back problems (20 sources) Backache; Translations: [Dorsalgia, unspecified] 04-09-2023 Episodic Superficial injury; contusion (2 sources) Contusion of eyeball and orbital tissues, left eye, initial encounter; Translations: [Black eye, not otherwise specified] Onset: 5 10-17-2024 Episodic Syncope (20 sources) Near syncope; Translations: [Syncope and collapse] Episodic Thyroid disorders (20 sources) Hypothyroidism; Translations: [Hypothyroidism, unspecified] Onset: 4 Chronic Unclassified (2 sources) Permanent atrial fibrillation; Translations: [Permanent atrial fibrillation (HCC)] Onset: 2 Unclassified (2 sources) Follow-up with BMP Unclassified (1 source) Other persistent atrial fibrillation; Translations: [Persistent atrial fibrillation (HCC)] Onset: 5 Unclassified (1 source) Acute cough; Translations: [Acute cough] Onset: 5 Urinary tract infections (20 sources) Acute urinary tract infection; Translations: [Urinary tract infection, site not specified] 04-12-2022 Episodic Past or Other Problems Problem Classification Problem Date Documented Da te Episodic/Chronic Abdominal hernia (20 sources) Incisional hernia; Translations: [Incisional hernia without obstruction or gangrene] Onset: 3 Resolved: 7 08-06-2016 Episodic Acute and unspecified renal failure (20 sources) Acute injury of kidney; Translations: [Acute kidney failure, unspecified] Onset: 5 Episodic Cardiac dysrhythmias (20 sources) Palpitations; Translations: [Palpitations] Onset: 2 Resolved: 3 Episodic Deficiency and other anemia (9 sources) Anemia, unspecified; Translations: [Anemia, unspecified] Onset: 2 Episodic Hemorrhoids (20 sources) Internal hemorrhoids; Translations: [Other hemorrhoids] Resolved: 7 08-06-2016 Episodic Malaise and fatigue (8 sources) Fatigue; Translations: [Other fatigue] Onset: 4 Episodic Menopausal disorders (20 sources) Menopausal symptom; Translations: [Menopausal and female climacteric states] Onset: 9 Resolved: 0 08-06-2016 Chronic Other aftercare (20 sources) Long-term current use of anticoagulant; Translations: [jail (current) use of anticoagulants] Onset: 3 01-23-2023 Episodic Other bone disease and musculoskeletal deformities (20 sources) Disorder of skeletal system; Translations: [Disorder of bone, unspecified] Onset: 9 Resolved: 2 03-24-2012 Episodic Other connective tissue disease (1 source) Other specified disorders of muscle; Translations: [Exercise-induced leg fatigue] Onset: 5 Episodic Other gastrointestinal disorders (20 sources) History of gastrointestinal bleed; Translations: [Personal history of other diseases of the digestive system] Onset: 3 01-23-2023 Episodic Other nutritional; endocrine; and metabolic disorders (20 sources) Obesity; Translations: [Obesity, unspecified] Resolved: 6 09-25-2015 Chronic Other screening for suspected conditions (not mental disorders or infectious disease) (20 sources) Blood chemistry abnormal; Translations: [Other specified abnormal findings of blood chemistry] Onset: 6 02-17-2018 Episodic Pathological fracture (20 sources) Osteoporosis; Translations: [Age-related osteoporosis with current pathological fracture, unspecified site, initial encounter for fracture] Onset: 0 03-06-2017 Episodic Pneumonia (except that caused by tuberculosis or sexually transmitted disease) (20 sources) Pneumonia; Translations: [Pneumonia, unspecified organism] Onset: 2 03-25-2022 Episodic Comment on above: Cxray at [facility] . Residual codes; unclassified (20 sources) Edema of foot; Translations: [Localized edema] Onset: 7 12-04-2016 Episodic Residual codes; unclassified (20 sources) History of cardiac catheterization; Translations: [Other specified postprocedural states] Onset: 8 02-22-2018 Episodic Comment on above: Normal coronaries pe r cath done @ [facility] per Dr. Nolen Residual codes; unclassified (20 sources) Other specified personal risk factors, not elsewhere classified; Translations: [Other specified personal history presenting hazards to health] Onset: 3 01-23-2023 Episodic Residual codes; unclassified (20 sources) At risk of hemorrhage; Translations: [Other specified personal risk factors, not elsewhere classified] Onset: 3 01-23-2023 Episodic Unclassified (20 sources) s/p left wrist ORIF 01-17-2022 Comment on above: 10/14/17 Unclassified (19 sources) Sweating; Translations: [Hidrosis] 05-12-2019 Results Test Name Value Interpretation Reference Range Facility Anion gap in Serum or Plasma Ordered By: Dacia Sewell on 03-01-2025 Anion gap [Moles/Vol] 11 mmol/L 5-15 [facility] BUN/creatinine ratioOrdered By: Dacia Sewell on 03-01-2025 Urea nitrogen/Creatinine [Mass ratio] 19.9 mg/mg 10- [facility] Basic Metabolic Profile (BMP )on 03-01-2025 BUN Normal 4-19 [facility] Comment on above: Result Comment: DR. SEWELL ORDERED RENAL Performed By: #### L 500.2500 ####[facility] [address] [place], [address] BUN/CRE Normal 10-20 [facility] Comment on above: Result Comment: DR. SEWELL ORDERED RENAL Performed By: #### L 500.2500 ####[facility] [address] [place], [address] Calcium Normal 7.6-11.0 [facility] Comment on above: Result Comment: DR. SEWELL ORDERED RENAL Performed By: #### L 500.2500 ####[facility] [address] [place], [address] CL Normal 98-108 [facility] Comment on above: Result Comment: DR. SEWELL ORDERED RENAL Performed By: #### L 500.2500 ####[facility] [address] [place], [address] CO2 Normal 21.0-32.0 [facility] Comment on above: Result Comment: DR. SEWELL ORDERED RENAL Performed By: #### L 500.2500 ####[facility] [address] [place], [address] CREAT,SERUM Normal 0.70-1.20 [facility] Comment on above: Result Comment: DR. SEWELL ORDERED RENAL Performed By: #### L 500.2500 ####[facility] [address] [place], [address] eGFR Normal >60 [facility] Comment on above: Result Comment: DR. SEWELL ORDERED RENAL Performed By: #### L 500.2500 ####[facility] [address] [place], [address] GAP Normal 5-15 [facility] Comment on above: Result Comment: DR. SEWELL ORDERED RENAL Performed By: #### L 500.2500 ####[facility] [address] [place], [address] GLU Normal 70-99 [facility] Comment on above: Result Comment: DR. SEWELL ORDERED RENAL Performed By: #### L 500.2500 ####[facility] [address] [place], [address] Potassium Normal 3.3-5.1 [facility] Comment on above: Result Comment: DR. SEWELL ORDERED RENAL Performed By: #### L 500.2500 ####[facility] [address] [place], [address] Basic Metabolic Profile (BMP) Normal 133-145 [facility] Comment on above: Result Comment: DR. SEWELL ORDERED RENAL Performed By: #### L 500.2500 ####[facility] [address] [place], [address] CBC-Complete Blood Cnt No Di ffon 03-01-2025 Erythrocyte distribution width (RBC) [Ratio] 14.6 % Normal 11.6-14.6 [facility] Comment on above: Performed By: #### L 509.1000, L100.0500, L503.6030, L500.3600 ####[facility] [address] [place], [address] Hematocrit (Bld) [Volume fraction] 33.9 % Low 37-47 [facility] Comment on above: Performed By: #### L 509.1000, L100.0500, L503.6030, L500.3600 ####[facility] [address] [place], [address] Hemoglobin (Bld) [Mass/Vol] 11.2 g/dL Low 12.0-15.0 [facility] Comment on above: Performed By: #### L 509.1000, L100.0500, L503.6030, L500.3600 ####[facility] [address] [place], [address] MCH (RBC) [Entitic mass] 32.5 pg High 27.0-32.0 [facility] Comment on above: Performed By: #### L 509.1000, L100.0500, L503.6030, L500.3600 ####[facility] [address] [place], [address] MCHC (RBC) [Mass/Vol] 33.0 g/dL Normal 32-36 [facility] Comment on above: Performed By: #### L 509.1000, L100.0500, L503.6030, L500.3600 ####[facility] [address] [place], [address] MCV (RBC) [Entitic vol] 98.3 fL Normal 81-99 [facility] [facility] Comment on above: Performed By: #### L 509.1000, L100.0500, L503.6030, L500.3600 ####[facility] [address] [place], [address] Platelet mean volume (Bld) [Entitic vol] 10.0 fL Normal 6.2-12.0 [facility] Comment on above: Performed By: #### L 509.1000, L100.0500, L503.6030, L500.3600 ####[facility] [address] [place], [address] Platelets (Bld) [#/Vol] 165 10*3/uL Normal 150-450 [facility] Comment on above: Performed By: #### L 509.1000, L100.0500, L503.6030, L500.3600 ####[facility] [address] [place], [address] RBC (Bld) [#/Vol] 3.45 10*6/uL Low 4.2-5.4 [facility] Comment on above: Performed By: #### L 509.1000, L100.0500, L503.6030, L500.3600 ####[facility] [address] [place], [address] RDW SD 52.1 fl High 35.1-43.9 [facility] Comment on above: Performed By: #### L 509.1000, L100.0500, L503.6030, L500.3600 ####[facility] [address] [place], [address] WBC (Bld) [#/Vol] 5.8 10*3/uL Normal 4.4-11.0 [facility] Comment on above: Performed By: #### L 509.1000, L100.0500, L503.6030, L500.3600 ####[facility] [address] [place], [address] Carbon dioxide, total [Moles /volume] in Central venous bloodOrdered By: Dacia Sewell on 03-01-2025 CO2 [Moles/Vol] 21.5 mmol/L 21.0-32.0 [facility] Chloride assayOrdered By: Julia Sewell on 03-01-2025 Chloride [Moles/Vol] 108 mmol/L 98-108 [facility] Erythrocyte distribution wid th ratioOrdered By: Dacia Sewell on 03-01-2025 Erythrocyte distribution width (RBC) [Ratio] 14.6 % 11.6-14.6 [facility] Erythrocyte distribution wid th standard deviationOrdered By: Dacia Sewell on 03-01-2025 Erythrocyte distribution width (RBC) [Ratio] 52.1 fl High 35.1-43.9 [facility] Glomerular filtration rate ( GFR) estimation/1.73 sq m using serum, plasma, or whole bOrdered By: Dacia Sewell on 03-01-2025 GFR/1.73 sq M.predicted among non-blacks MDRD (S/P/Bld) [Vol rate/Area] 33 mL/min/{1.73_m2} Low >60 [facility] Comment on above: mL/min/1.73m2 CKD-EP I Creatinine Equation (2020) Hematocrit Auto (Bld) [Volum e fraction]Ordered By: Dacia Sewell on 03-01-2025 Hematocrit (Bld) [Volume fraction] 33.9 % Low 37-47 [facility] Hemoglobin measurementOrdere d By: Dacia Sewell on 03-01-2025 Hemoglobin (Bld) [Mass/Vol] 11.2 g/dL Low 12.0-15.0 [facility] Iron measurement (mass/mass) Ordered By: Dacia Sewell on 03-01-2025 Iron (Unsp spec) [Mass/Mass] 53 ug/dL 50-170 [facility] Iron+Iron Binding Capacityon 03-01-2025 TIBC 233 ug/dL Low 250-450 [facility] Comment on above: Performed By: #### L 509.1000, L100.0500, L503.6030, L500.3600 ####[facility] [address] [place], [address] MCV (mean corpuscular volume ) determinationOrdered By: Dacia Sewell on 03-01-2025 MCV (RBC) [Entitic vol] 98.3 fL 81-99 [facility] Mean corpuscular hemoglobin (MCH) determinationOrdered By: Dacia Sewell on 03-01-2025 MCH (RBC) [Entitic mass] 32.5 pg High 27.0-32.0 [facility] Mean corpuscular hemoglobin concentration (MCHC) determinationOrdered By: Dacia Sewell on 03-01-2025 MCHC (RBC) [Mass/Vol] 33.0 g/dL 32-36 [facility] Mean platelet volume determi nationOrdered By: Dacia Sewell on 03-01-2025 Platelet mean volume (Bld) [Entitic vol] 10.0 fL 6.2-12.0 [facility] No Panel InformationOrdered By: Dacia Sewell on 03-01-2025 Unsaturated Iron Binding Capacity 180 ug/dL Low 228-428 [facility] PTHINon 03-01-2025 PTH 88 pg/mL High 11-61 [facility] Comment on above: Performed By: #### L 509.1000, L100.0500, L503.6030, L500.3600 ####[facility] [address] [place], [address] Platelet countOrdered By: Julia Sewell on 03-01-2025 Platelets (Bld) [#/Vol] 165 10*3/uL 150-450 [facility] Potassium measurement (mass/ volume)Ordered By: Dacia Sewell on 03-01-2025 Potassium (Unsp spec) [Mass/Vol] 3.9 mmol/L 3.3-5.1 [facility] RBC Auto (Bld) [#/Vol]Ordere d By: Dacia Sewell on 03-01-2025 RBC (Bld) [#/Vol] 3.45 10*6/uL Low 4.2-5.4 [facility] Renal Profileon 03-01-2025 Albumin [Mass/Vol] 4.0 g/dL Normal 3.4-4.8 [facility] Comment on above: Performed By: #### L 509.1000, L100.0500, L503.6030, L500.3600 ####[facility] [address] [place], [address] BUN/CRE 19.9 RATIO Normal 10-20 [facility] Comment on above: Performed By: #### L 509.1000, L100.0500, L503.6030, L500.3600 ####[facility] [address] [place], [address] Calcium [Mass/Vol] 9.0 mg/dL Normal 7.6-11.0 [facility] Comment on above: Performed By: #### L 509.1000, L100.0500, L503.6030, L500.3600 ####[facility] [address] [place], [address] Chloride [Moles/Vol] 108 mmol/L Normal 98-108 [facility] Comment on above: Performed By: #### L 509.1000, L100.0500, L503.6030, L500.3600 ####[facility] [address] [place], [address] CO2 [Moles/Vol] 21.5 mmol/L Normal 21.0-32.0 [facility] Comment on above: Performed By: #### L 509.1000, L100.0500, L503.6030, L500.3600 ####[facility] [address] [place], [address] Creatinine [Mass/Vol] 1.53 mg/dL High 0.70-1.20 [facility] Comment on above: Performed By: #### L 509.1000, L100.0500, L503.6030, L500.3600 ####[facility] [address] [place], [address] GAP 11 Normal 5-15 [facility] Comment on above: Performed By: #### L 509.1000, L100.0500, L503.6030, L500.3600 ####[facility] [address] [place], [address] GFR/1.73 sq M.predicted among non-blacks MDRD (S/P/Bld) [Vol rate/Area] 33 mL/min/{1.73_m2} Low >60 [facility] Comment on above: Result Comment: mL/m in/1.73m2 CKD-EPI Creatinine Equation (2020) Performed By: #### L 509.1000, L100.0500, L503.6030, L500.3600 ####[facility] [address] [place], [address] Glucose [Mass/Vol] 106 mg/dL High 70-99 [facility] Comment on above: Performed By: #### L 509.1000, L100.0500, L503.6030, L500.3600 ####[facility] [address] [place], [address] Phosphate [Mass/Vol] 3.2 mg/dL Normal 2.7-4.5 [facility] Comment on above: Performed By: #### L 509.1000, L100.0500, L503.6030, L500.3600 ####[facility] [address] [place], [address] Potassium [Moles/Vol] 3.9 mmol/L Normal 3.3-5.1 [facility] Comment on above: Performed By: #### L 509.1000, L100.0500, L503.6030, L500.3600 ####[facility] [address] [place], [address] Sodium [Moles/Vol] 140 mmol/L Normal 133-145 [facility] Comment on above: Performed By: #### L 509.1000, L100.0500, L503.6030, L500.3600 ####[facility] [address] [place], [address] Urea nitrogen [Mass/Vol] 30 mg/dL High 4-19 [facility] Comment on above: Performed By: #### L 509.1000, L100.0500, L503.6030, L500.3600 ####[facility] [address] [place], [address] Serum creatinine measurement (mass/volume)Ordered By: Dacia Sewell on 03-01-2025 Creatinine [Mass/Vol] 1.53 mg/dL High 0.70-1.20 [facility] Serum glucose measurement (m ass/volume)Ordered By: Dacia Sewell on 03-01-2025 Glucose [Mass/Vol] 106 mg/dL High 70-99 [facility] Serum or plasma albumin dex urement (mass/volume)Ordered By: Dacia Sewell on 03-01-2025 Albumin [Mass/Vol] 4.0 g/dL 3.4-4.8 [facility] Serum or plasma calcium dex urement (mass/volume)Ordered By: Dacia Sewell on 03-01-2025 Calcium [Mass/Vol] 9.0 mg/dL 7.6-11.0 [facility] Serum or plasma iron saturat ion measurement (mass fraction)Ordered By: Dacia Sewell on 03-01-2025 Iron saturation [Mass fraction] 22.7 % 13-59 [facility] Comment on above: Previous reported re sult: 23.0 %Edited by: DOMINGA on 03/01/25:1337 AMENDED REPORT 03/01/25 1337 IRON SATURATION previously reported as: 23.0 % Serum or plasma urea nitroge n measurement (mass/volume)Ordered By: Dacia Sewell on 03-01-2025 Urea nitrogen [Mass/Vol] 30 mg/dL High 4-19 [facility] Sodium levelOrdered By: Charlie Sewell on 03-01-2025 Sodium [Moles/Vol] 140 mmol/L 133-145 [facility] TSH DL <= 0.005 mIU/L QnOrde red By: Terry Basilio on 03-01-2025 TSH Qn 5.350 uIU/mL High 0.300-4.200 [facility] Thyroid Stim Hormone (TSH)on 03-01-2025 TSH 5.350 uIU/mL High 0.300-4.200 [facility] Comment on above: Performed By: #### L 506.1001, L501.9520 ####[facility] [address] [place], [place], [id number] Vitamin D,25 Hydroxyon 03-01 Vitamin D 25-OH 54.3 ng/mL Normal 30-100 [facility] Comment on above: Result Comment: Connie min D StatusDeficiency: <20 ng/mL (50nmol/L)Insufficiency: 20-30 ng/mL (50-75 nmol/L)Sufficiency: 30-100 ng/mL (75-250 nmol/L)Toxicity: >100 ng/mL (>250 nmol/L) Performed By: #### L 506.1001, L501.9520 ####[facility] [address] [place], [address] White blood cell (WBC) count Ordered By: Dacia Sewell on 03-01-2025 WBC (Bld) [#/Vol] 5.8 10*3/uL 4.4-11.0 [facility] - Chemistry and C hemistry - challengeOrdered By: Jessica Adler on 02-22-2025 Bilirubin Ql (U) Moderate (2+) [facility] Glucose Ql (U) Negative [facility] Ketones Ql (U) Negative [facility] pH (U) 6 [pH] [facility] Specific gravity (U) [Rel density] 1.020 [facility] Urobilinogen (U) [Mass/Vol] Negative [facility] Laboratory - Hematology and Cell countsOrdered By: Jessica Adler on 02-22-2025 Hemoglobin Ql (U) Negative [facility] Laboratory - UrinalysisOrder ed By: Jessica Adler on 02-22-2025 Nitrite Ql (U) Negative [facility] Protein Ql (U) 1+ [facility] MR/BMS.BUSon 02-22-2025 MR/BMS.BUS Normal [facility] No Panel InformationOrdered By: Jessica Adler on 02-22-2025 Urine Leukocytes Negatve [facility] Urine Non-Hemolyzed Blood Negative [facility] Echo, Limited Studyon 2024 Echo, Limited Study Normal [facility] Limited echocardiogram repor tOrdered By: Fredis Marie on 02-02-2025 Study report [facility] Work Phone: Cardiology Visit Reporton Cardiology Visit Report Normal [facility] CNOVon 01-03-2025 CNOV Office Visit (INTMWS) REINIER ELIZABETH ([id number]) 1935 F NFR Date Time Provider Department 01/03/25 2:00 PM ANAY SCHULER During your visit today, we recorded the following information about you: Pulse Respiration Blood pressure Weight 58/minute 16/minute 164/65 58.5 kg Anay Schuler MD 01/03/2025 2:34 PM Signed We discussed your follow-up care and current health concerns: - Blood Thinner (Xarelto): Continue taking Xarelto as prescribed. Your recent stool test for blood loss was negative, and your iron levels are stable. Your hemoglobin is slightly low at 10.8, but this may be due to blood draws during your recent hospital stay. We will monitor this over time, and no additional treatment is needed at this point. - Thyroid Levels: Your thyroid levels were slightly elevated, which may be related to recent illness or medication adjustments. If you miss a dose of your thyroid medication, take the missed dose the next day along with your regular dose. Continue taking your thyroid medication as prescribed. No changes to your thyroid medication are needed at this time. - Amiodarone (for AFib): Your amiodarone dosage was recently reduced to 100 mg once daily. You have been feeling steadier and more active since this adjustment. Please continue this dosage as prescribed. You will follow up with Dr. Kingston on Thursday to monitor your AFib and medication management. - Congestive Heart Failure and Swelling: Your leg swelling is likely related to your history of a past fracture and possibly arthritis. Keeping your feet elevated and staying active, as you have been doing, can help manage the swelling. Continue your current activity level, including walking and light exercises, as tolerated. - Recent Illness and Recovery: You have recovered from a recent sinus infection and cough, and your appetite has improved. Continue eating regularly to support your recovery. - General Health and Activity: It?s great to hear you are feeling better and resuming activities like cooking, light cleaning, and walking. Staying active will help improve your overall health. No additional tests or changes to your medications are needed at this time. Please continue your current care plan and follow up with Dr. Kingston as scheduled. Let us know if you experience any new or worsening symptoms, such as increased swelling, shortness of breath, or changes in your heart rhythm. Anay Schuler MD 01/03/2025 4:33 PM Signed Reason for Visit Follow up HPI Reinier Elizabeth is a 89-year-old female with a history of A-fib, CHF, and hypothyroidism, presenting for a 2-month follow-up. Reinier is accompanied by her daughter, who is providing additional history. She is currently on Xarelto and amiodarone, which was recently reduced to 100 mg once daily approximately 2 weeks ago. Since the reduction, Reinier reports feeling better and has been able to increase her physical activity, including walking outside, cooking, and doing laundry. She also notes an improvement in her appetite, which had been poor during a recent hospital stay and subsequent antibiotic treatment for a sinus infection and cough. Her daughter reports that her blood pressure has improved over the last 2 weeks. Reinier has a history of a leg fracture several years ago, and her daughter notes that her left leg tends to swell more than her right. She has been elevating her feet to manage the swelling and has been doing more exercises, even while sitting. She denies any recent DVTs. Recent lab results show a hemoglobin level of 10.8 g/dL, which is slightly lower than previous readings. A stool test for occult blood was negative, and iron levels were within normal limits. Thyroid function tests showed a slight elevation, but Reinier denies missing any doses of her thyroid medication. Social History Tobacco Use Smoking status: Former Current packs/day: 0.00 Types: Cigarettes Start date: 07/06/1971 Quit date: 07/06/1976 Years since quittin.5 Smokeless tobacco: Never Tobacco comments: Quit 4-5 cig per day Vaping Use Vaping status: Never Used Substance Use Topics Alcohol use: No Drug use: No Past medical history, appointments, medications, allergies reviewed. Pertinent Lab/Diagnostic Studies are reviewed and discussed today Current Outpatient Medications: hydrALAZINE (APRESOLINE) 50 mg tablet loratadine (CLARITIN) 10 mg tablet benzonatate (TESSALON PERLE) 100 mg capsule omeprazole (PRILOSEC) 40 mg capsule levothyroxine (LEVOXYL) 25 mcg tablet carvedilol (COREG) 3.125 mg tablet netarsudil-latanopro st (ROCKLATAN) 0.02-0.005 % ophthalmic solution ondansetron (ZOFRAN) 4 mg tablet losartan (COZAAR) 50 mg tablet atorvastatin (LIPITOR) 20 mg tablet cyanocobalamin, vitamin B-12, (VITAMIN B12 ORAL) denosumab (PROLIA SUBCUTA (more content not included)... Normal [facility] CNOVon 12-21-2024 CNOV Office Visit (INTMWS) REINIER ELIZABETH ([id number]) 1935 F NFR Date Time Provider Department 12/21/24 2:00 PM SILVIO DRAKE During your visit today, we recorded the following information about you: Pulse Respiration Blood pressure Weight 56/minute 16/minute 194/60 58 kg Silvio Drake APRN.[facility] 12/21/2024 6:10 PM Signed CC: Patient presents with: 1 week f/u: Cough with congestion HPI Reinier Elizabeth is a 89 year old female who presents today for 1 week follow up after starting doxycycline for cough and congestion. Cough: Patient seen one week ago for cough, congestion, nausea, mild DICKERSON, and tinnitus to right ear. Started on doxycycline. Patient denies tinnitus to right ear, although still experiencing cough congestion, and nausea. Patient states productive cough, previously yellow sputum, currently clear sputum at this time. Endorses wheezing when laying flat. States using incentive spirometer daily at home. States tessalon helps occasionally with cough, and inconsistently using OTC Tussin from [employer]. Denies chest pain, palpitations, vomiting, abdominal pain, fevers, chills, sinus pressure or pain. States 2 days of diarrhea upon starting antibiotic, no episodes since. CXR did show vascular congestion so lasix given daily for 3 days. No longer with mild DICKERSON. Nausea has been present prior to this since starting amiodarone during hospitalization for a-fib. HTN: Ms. Elizabeth denies headache, chest pain, palpitations, dyspnea, and peripheral edema. Patient denies any side effects of her medication(s) and is compliant with their regimen. She does check BP's away from this office with average BP's in the 130s-190s/60s-80s range. Reinier denies regular aerobic exercise. She watches her diet for sodium, low fat and low cholesterol some of the time. Last 3 Encounter BP Readings: Date: BP: 12/21/2024 192/60 12/12/2024 158/92 11/28/2024 152/94 REVIEW OF SYSTEMS General: no fevers, no chills, no night sweats, no recurrent infections, no change in appetite, no change in energy, and no significant changes in weight HEENT: no frequent or significant headaches, no sinus or nasal problems Neck: no lumps, no pain , and no swelling Respiratory: no cough, no shortness of breath, no hemoptysis, Positive for: wheezing when laying flat Cardiovascular: no chest pain, no chest pressure, no palpitations, and no swelling GI: Positive for diarrhea for first two days after starting antibiotic, nausea prior to congestion and cough Neurologic: No headache, weakness, numbness, tingling, neck stiffness, tremor, vertigo, dizziness, memory loss, syncope. PAST MEDICAL HISTORY Diagnosis Date Acquired keratoderma Lichen sclerosis Anemia Anticoagulant long-term use indication: stroke prevention atrial fibrillation At risk for bleeding associated with anticoagulants HAS-BLED score = 2 (age, bleeding) At risk for stroke [id number] = 4 (HTN, age2, female gender) Benign [...] - May. right eye left eye - [facility] . Dr Gao REPAIR FIRST ABDOMINAL WALL HERNIA 12/14/2012 2cm defect - Parietex Composite ventral patch 6cm STRESS TEST 04/14/2017 PAWAN 02/04/2018 ALLERGIES Macrobid [Nitrofurantoin Monohyd/M-Cryst], Amantadine, Capoten [Captopril], Cephalexin, Erythromycin, Hctz [Thiazides], Ivp Dye [Iodine], and Norvasc [Amlodipine Besylate] MEDICATIONS doxycycline hyclate (VIBRAMYCIN) 100 mg capsule Take 1 capsule by mouth two times a day for 10 days. b (more content not included)... Normal [facility] Hemoccult Stl Ql IAon 2024 Lower GI hemoglobin IA Ql (Stl) Negative Normal Negative [facility] Comment on above: Order Comment: Speci men Type: STOOL SPECIMEN Ordering Facility: [facility] Address: [address] [place] [address] Performed By: #### 2 9771-3 #### [facility] CLIA [id number] [address] [place] [address] [place] [address] [place] Comprehensive metabolic 2000 panelon 12-13-2024 Albumin [Mass/Vol] 4 g/dL 3.9 - 4.9 g/dL [facility] ALP [Catalytic activity/Vol] 53 U/L 34 - 123 U/L [facility] ALT [Catalytic activity/Vol] 19 U/L 7 - 38 U/L [facility] Anion gap [Moles/Vol] 14 mmol/L 8 - 15 mmol/L [facility] AST [Catalytic activity/Vol] 27 U/L 13 - 35 U/L [facility] Bilirubin [Mass/Vol] 0.9 mg/dL 0.2 - 1 .3 mg/dL [facility] Calcium [Mass/Vol] 8.5 mg/dL 8.5 - 10. 2 mg/dL [facility] Chloride [Moles/Vol] 106 mmol/L 98 - 10 7 mmol/L [facility] CO2 [Moles/Vol] 18 mmol/L Low 22 - 30 mmol/L [facility] Creatinine [Mass/Vol] 1.27 mg/dL High 0.58 - 0.96 mg/dL [facility] GFR/1.73 sq M.predicted among non-blacks MDRD (S/P/Bld) [Vol rate/Area] 41 mL/min/{1.73_m2} Low - PINF [facility] Comment on above: Estimated Glomerular Filtration Rate (eGFR) is calculated using the 2020 CKD-EPI creatinine equation. This equation utilizes serum creatinine, sex, and age as parameters. The creatinine assay has traceable calibration to isotope dilution-mass spectrometry. Refer to KDIGO guidelines for clinical interpretation. In patients with unstable renal function, e.g. those with acute kidney injury, the eGFR may not accurately reflect actual GFR. Glucose [Mass/Vol] 109 mg/dL High 74 - 99 mg/dL [facility] Comment on above: The [place] [employer] Association (ADA) provides guidance for cutoff values for fasting glucose and random glucose. The ADA defines fasting as no caloric intake for at least 8 hours. Fasting plasma glucose results between 100 to 125 mg/dL indicate increased risk for diabetes (prediabetes). Fasting plasma glucose results greater than or equal to 126 mg/dL meet the criteria for diagnosis of diabetes. In the absence of unequivocal hyperglycemia, results should be confirmed by repeat testing. In a patient with classic symptoms of hyperglycemia or hyperglycemic crisis, random plasma glucose results greater than or equal to 200 mg/dL meet the criteria for diagnosis of diabetes. Reference: Standards of Medical Care in Diabetes 2016, [place] [employer]. Diabetes Care. 2016.39(Suppl 1). Interpretation and review of laboratory results Abnormal [facility] Potassium [Moles/Vol] 4.3 mmol/L 3.7 - 5.1 mmol/L [facility] Protein [Mass/Vol] 6.7 g/dL 6.3 - 8.0 g/dL [facility] Sodium [Moles/Vol] 138 mmol/L 136 - 144 mmol/L [facility] Urea nitrogen [Mass/Vol] 21 mg/dL 7 - 21 mg/d L [facility] MAGNESIUMon 12-13-2024 Magnesium [Mass/Vol] 1.7 mg/dL 1.7 - 2 .3 mg/dL [facility] Magnesium [Mass/Vol]on 12-13 Interpretation and review of laboratory results Normal [facility] THYROID STIMULATING HORMONEo n 12-13-2024 TSH Qn 4.32 m[IU]/L High [facility] TSH Qnon 12-13-2024 Interpretation and review of laboratory results Abnormal [facility] CBC W Auto Differential pane l (Bld)on 12-12-2024 Basophils (Bld) [#/Vol] 0.07 10*3/uL Normal <0.11 [facility] Comment on above: Order Comment: Speci men Type: BLOOD SPECIMEN Ordering Facility: [facility] Address: [address] [place] [address] Performed By: #### 5 7021-8 #### [facility] CLIA [id number] [address] [place] [address] [place] Basophils/100 WBC (Bld) 1.8 % Normal C [facility] Comment on above: Order Comment: Speci men Type: BLOOD SPECIMEN Ordering Facility: [facility] Address: [address] [place] [address] Performed By: #### 5 7021-8 #### [facility] CLIA [id number] [address] [place] [address] [place] Differential cell count method Nom (Bld) Auto Normal [facility] Comment on above: Order Comment: Speci men Type: BLOOD SPECIMEN Ordering Facility: [facility] Address: [address] [place] [address] Performed By: #### 5 7021-8 #### [facility] CLIA [id number] [address] [place] [address] [place] Eosinophils (Bld) [#/Vol] 0.09 10*3/uL Normal <0.46 [facility] Comment on above: Order Comment: Speci men Type: BLOOD SPECIMEN Ordering Facility: [facility] Address: [address] [place] [address] Performed By: #### 5 7021-8 #### [facility] CLIA [id number] [address] [place] [address] [place] Eosinophils/100 WBC (Bld) 2.3 % Normal [facility] Comment on above: Order Comment: Speci men Type: BLOOD SPECIMEN Ordering Facility: [facility] Address: [address] [place] [address] Performed By: #### 5 7021-8 #### [facility] CLIA [id number] [address] [place] [address] [place] Erythrocyte distribution width (RBC) [Ratio] 14.3 % Normal 11.5-15.0 [facility] Comment on above: Order Comment: Speci men Type: BLOOD SPECIMEN Ordering Facility: [facility] Address: [address] [place] [address] Performed By: #### 5 7021-8 #### [facility] CLIA [id number] [address] [place] [address] [place] Hematocrit (Bld) [Volume fraction] 33.3 % Low 36.0-46.0 [facility] Comment on above: Order Comment: Speci men Type: BLOOD SPECIMEN Ordering Facility: [facility] Address: [address] [place] [address] Performed By: #### 5 7021-8 #### [facility] CLIA [id number] [address] [place] [address] [place] Hemoglobin (Bld) [Mass/Vol] 10.8 g/dL Low 11.5-15.5 [facility] Comment on above: Order Comment: Speci men Type: BLOOD SPECIMEN Ordering Facility: [facility] Address: [address] [place] [address] Performed By: #### 5 7021-8 #### [facility] CLIA [id number] [address] [place] [address] [place] Immature granulocytes (Bld) [#/Vol] 0.08 10*3/uL Normal <0.10 [facility] Comment on above: Order Comment: Speci men Type: BLOOD SPECIMEN Ordering Facility: [facility] Address: [address] [place] [address] Performed By: #### 5 7021-8 #### [facility] CLIA [id number] [address] [place] [address] [place] Immature granulocytes/100 WBC (Bld) 2.1 % Normal [facility] Comment on above: Order Comment: Speci men Type: BLOOD SPECIMEN Ordering Facility: [facility] Address: [address] [place] [address] Performed By: #### 5 7021-8 #### [facility] CLIA [id number] [address] [place] [address] [place] Lymphocytes (Bld) [#/Vol] 0.78 10*3/uL Low 1.00-4.00 [facility] Comment on above: Order Comment: Speci men Type: BLOOD SPECIMEN Ordering Facility: [facility] Address: [address] [place] [address] Performed By: #### 5 7021-8 #### [facility] CLIA [id number] [address] [place] [address] [place] Lymphocytes/100 WBC (Bld) 20.2 % Normal [facility] Comment on above: Order Comment: Speci men Type: BLOOD SPECIMEN Ordering Facility: [facility] Address: [address] [place] [address] Performed By: #### 5 7021-8 #### [facility] CLIA [id number] [address] [place] [address] [place] MCH (RBC) [Entitic mass] 32.0 pg Normal 26.0-34.0 [facility] Comment on above: Order Comment: Speci men Type: BLOOD SPECIMEN Ordering Facility: [facility] Address: [address] [place] [address] Performed By: #### 5 7021-8 #### [facility] CLIA [id number] [address] [place] [address] [place] MCHC (RBC) [Mass/Vol] 32.4 g/dL Normal 30.5-36.0 [facility] Comment on above: Order Comment: Speci men Type: BLOOD SPECIMEN Ordering Facility: [facility] Address: [address] [place] [address] Performed By: #### 5 7021-8 #### [facility] CLIA [id number] [address] [place] [address] [place] MCV (RBC) [Entitic vol] 98.5 fL Normal 80.0-100.0 [facility] Comment on above: Order Comment: Speci men Type: BLOOD SPECIMEN Ordering Facility: [facility] Address: [address] [place] [address] Performed By: #### 5 7021-8 #### [facility] CLIA [id number] [address] [place] [address] [place] Monocytes (Bld) [#/Vol] 0.36 10*3/uL Normal <0.87 [facility] Comment on above: Order Comment: Speci men Type: BLOOD SPECIMEN Ordering Facility: [facility] Address: [address] [place] [address] Performed By: #### 5 7021-8 #### [facility] CLIA [id number] [address] [place], [place] [address] [place] Monocytes/100 WBC (Bld) 9.3 % Normal [facility] Comment on above: Order Comment: Speci men Type: BLOOD SPECIMEN Ordering Facility: [facility] Address: [address] [place] [address] Performed By: #### 5 7021-8 #### [facility] CLIA [id number] [address] [place] [address] [place] Neutrophils (Bld) [#/Vol] 2.48 10*3/uL Normal 1.45-7.50 [facility] Comment on above: Order Comment: Speci men Type: BLOOD SPECIMEN Ordering Facility: [facility] Address: [address] [place] [address] Performed By: #### 5 7021-8 #### [facility] CLIA [id number] [address] [place] [address] [place] Neutrophils/100 WBC (Bld) 64.3 % Normal [facility] Comment on above: Order Comment: Speci men Type: BLOOD SPECIMEN Ordering Facility: [facility] Address: [address] [place] [address] Performed By: #### 5 7021-8 #### [facility] CLIA [id number] [address] [place] [address] [place] Nucleated RBC (Bld) [#/Vol] 10*3/uL Normal <0.01 [facility] Comment on above: Order Comment: Speci men Type: BLOOD SPECIMEN Ordering Facility: [facility] Address: [address] [place] [address] Performed By: #### 5 7021-8 #### [facility] CLIA [id number] [address] [place] [address] [place] Nucleated RBC/100 WBC (Bld) [Ratio] 0.0 /100 WBC Normal [facility] Comment on above: Order Comment: Speci men Type: BLOOD SPECIMEN Ordering Facility: [facility] Address: [address] [place] [address] Performed By: #### 5 7021-8 #### [facility] CLIA [id number] [address] [place] [address] [place] Platelet mean volume (Bld) [Entitic vol] 10.5 fL Normal 9.0-12.7 [facility] Comment on above: Order Comment: Speci men Type: BLOOD SPECIMEN Ordering Facility: [facility] Address: [address] [place] [address] Performed By: #### 5 7021-8 #### [facility] CLIA [id number] [address] [place] [address] [place] Platelets (Bld) [#/Vol] 143 10*3/uL Low 150-400 [facility] Comment on above: Order Comment: Speci men Type: BLOOD SPECIMEN Ordering Facility: [facility] Address: [address] [place] [address] Performed By: #### 5 7021-8 #### [facility] CLIA [id number] [address] [place] [address] [place] RBC (Bld) [#/Vol] 3.38 10*6/uL Low 3.90-5.[address] [facility] Comment on above: Order Comment: Speci men Type: BLOOD SPECIMEN Ordering Facility: [facility] Address: [address] [place] [address] Performed By: #### 5 7021-8 #### [facility] CLIA [id number] [address] [place] [address] [place] WBC (Bld) [#/Vol] 3.86 10*3/uL Normal 3.70-11.[address] [facility] Comment on above: Order Comment: Speci men Type: BLOOD SPECIMEN Ordering Facility: [facility] Address: [address] [place] [address] Performed By: #### 5 7021-8 #### [facility] CLIA [id number] [address] [place] [address] [place] [id number] [place] CNOVon 12-12-2024 CNOV Office Visit (INTMWS) REINIER ELIZABETH ([id number]) 1935 F NFR Date Time Provider Department 12/12/24 1:40 PM SILVIO DRAKE During your visit today, we recorded the following information about you: Temperature Pulse Respiration Blood pressure 97.6 degrees 62/minute 16/minute 158/92 Weight 61.7 kg Silvio Drake APRN.BILLING AND ACCOUNTING STAFF ASSISTANT 12/14/2024 8:49 AM Signed CC: Patient presents with: Head Congestion: Head congestion, productive cough 5 days HPI Reinier Elizabeth is a 89 year old female who presents today for sinus concerns. Recording using [employer] software for draft documentation of the visit was discussed with the patient/authorized account service representative; all questions welcomed and answered. Patient/authorized account service representative agreed to proceed Cough and Congestion: - Symptoms began over a week ago, with worsening over the last 4-5 days. - Initially started with a cough, now accompanied by chest congestion and nasal drainage. - Cough is productive with pale yellow sputum; nasal drainage is white. - Denies wheezing, but reports mild dyspnea, especially with exertion and after coughing spells. - Denies chest pressure, palpitations, or sinus pain. - Reports tinnitus in the right ear, but denies ear pain. - Denies sore throat, headaches, or body aches. - Experiences nausea, with one episode of dry heaves; taking Zofran. - Denies fever, chills, or other systemic symptoms. - Using Tussin cough syrup from [employer], labeled safe for hypertension and diabetes. - Reports feeling wobbly and more tired than usual. - Noted rattling sensation in the chest when coughing. - Recent blood pressure readings have been elevated, with a progressive increase since the onset of symptoms. Also was started on amiodarone 6-8 weeks ago for symptomatic a-fib during a hospitalization. REVIEW OF SYSTEMS See HPI PAST MEDICAL HISTORY Diagnosis Date Acquired keratoderma Lichen sclerosis Anemia Anticoagulant long-term use indication: stroke prevention atrial fibrillation At risk for bleeding associated with anticoagulants HAS-BLED score = 2 (age, bleeding) At risk for stroke [id number] = 4 (HTN, age2, female gender) Benign [...] Glaucoma - right eye left eye - [facility] . Dr Gao REPAIR FIRST ABDOMINAL WALL HERNIA 12/14/2012 2cm defect - Parietex Composite ventral patch 6cm STRESS TEST 04/14/2017 PAWAN 02/04/2018 ALLERGIES Macrobid [Nitrofurantoin Monohyd/M-Cryst], Amantadine, Capoten [Captopril], Cephalexin, Erythromycin, Hctz [Thiazides], Ivp Dye [Iodine], and Norvasc [Amlodipine Besylate] MEDICATIONS doxycycline hyclate (VIBRAMYCIN) 100 mg capsule Take 1 capsule by mouth two times a day for 10 days. benzonatate (TESSALON PERLE) 100 mg capsule Take 1 capsule by mouth three times a day as needed. omeprazole (PRILOSEC) 40 mg capsule Take 1 capsule by mouth daily before breakfast. 1/2 hr before meal. levothyroxine (LEVOXYL) 25 mcg tablet Take 1 tablet by mouth once daily. Take on empty stomach. For Thyroid amiodarone (PACERONE) 200 mg tablet Take 1 tablet by mouth once daily. hydrALAZINE (APRESOLINE) 25 mg tablet Take 1 tablet by mouth three times a day. carvedilol (COREG) 3.125 mg tablet Take 1 tablet by mouth two times a day. netarsudil-latanopro st (ROCKLATAN) 0.02-0.005 % ophthalmic solution Use 1 drop in both eyes daily at bedtime. ondansetron (ZOFRAN) 4 mg tablet Take 1 tablet by mouth every 8 hours as needed for nausea/vomiting. losartan (COZAAR) (more content not included)... Normal [facility] Comprehensive metabolic 2000 panelon 12-12-2024 Albumin [Mass/Vol] 4.0 g/dL Normal 3.9-4.9 [facility] Comment on above: Order Comment: Speci men Type: BLOOD SPECIMEN Ordering Facility: [facility] Address: [address] [place] [address] Performed By: #### 2 43238, 2132-02 #### [facility] CLIA [id number] [address] [place] [address] [place] ALP [Catalytic activity/Vol] 53 U/L Normal 34-123 [facility] Comment on above: Order Comment: Speci men Type: BLOOD SPECIMEN Ordering Facility: [facility] Address: [address] [place] [address] Performed By: #### 2 4323-8, 2132-02 #### [facility] CLIA [id number] [address] [address] [place] ALT [Catalytic activity/Vol] 19 U/L Normal 7-38 [facility] Comment on above: Order Comment: Speci men Type: BLOOD SPECIMEN Ordering Facility: [facility] Address: [address] [place], [place] [address] Performed By: #### 2 4328, 2132-02 #### [facility] CLIA [id number] [address] [place], [place] [address] [place] Anion gap [Moles/Vol] 14 mmol/L Normal 8-15 [facility] Comment on above: Order Comment: Speci men Type: BLOOD SPECIMEN Ordering Facility: [facility] Address: [address] [place] [address] Performed By: #### 2 8, 2132-02 #### [facility] CLIA [id number] [address] [place] [address] [place] AST [Catalytic activity/Vol] 27 U/L Normal 13-35 [facility] Comment on above: Order Comment: Speci men Type: BLOOD SPECIMEN Ordering Facility: [facility] Address: [address] [place], [place] [address] Performed By: #### 2 4323-01, 2132-02 #### [facility] CLIA [id number] [address] [place], [place] [address] [place] Bilirubin [Mass/Vol] 0.9 mg/dL Normal 0.2-1.3 [facility] Comment on above: Order Comment: Speci men Type: BLOOD SPECIMEN Ordering Facility: [facility] Address: [address] [place] [address] Performed By: #### 2 8, 2132-02 #### [facility] CLIA [id number] [address] [place], [place] [address] [place] Calcium [Mass/Vol] 8.5 mg/dL Normal 8.5-10.2 [facility] Comment on above: Order Comment: Speci men Type: BLOOD SPECIMEN Ordering Facility: [facility] Address: [address] [place] [address] Performed By: #### 2 4323-8, 2132-02 #### [facility] CLIA [id number] [address] [place] [address] [place] Chloride [Moles/Vol] 106 mmol/L Normal 98-107 [facility] Comment on above: Order Comment: Speci men Type: BLOOD SPECIMEN Ordering Facility: [facility] Address: [address] [place] [address] Performed By: #### 2 4328, 2132-02 #### [facility] CLIA [id number] [address] [place] [address] [place] CO2 [Moles/Vol] 18 mmol/L Low 22-30 [facility] Comment on above: Order Comment: Speci men Type: BLOOD SPECIMEN Ordering Facility: [facility] Address: [address] [place] [address] Performed By: #### 2 4328, 2132-02 #### [facility] CLIA [id number] [address] [place] [address] [place] Creatinine [Mass/Vol] 1.27 mg/dL High 0.58-0.96 [facility] Comment on above: Order Comment: Speci men Type: BLOOD SPECIMEN Ordering Facility: [facility] Address: [address] [place] [address] Performed By: #### 2 4323-8, 2132-02 #### [facility] CLIA [id number] [address] [place] [address] [place] Creatinine and Glomerular filtration rate.predicted panel (S/P/Bld) 41 mL/min/1.73m??? Low >=60 [facility] Comment on above: Order Comment: Speci men Type: BLOOD SPECIMEN Ordering Facility: [facility] Address: [address] [place] [address] Result Comment: Lien mated Glomerular Filtration Rate (eGFR) is calculated using the 2020 CKD-EPI creatinine equation. This equation utilizes serum creatinine, sex, and age as parameters. The creatinine assay has traceable calibration to isotope dilution-mass spectrometry. Refer to KDIGO guidelines for clinical interpretation. In patients with unstable renal function, e.g. those with acute kidney injury, the eGFR may not accurately reflect actual GFR. Performed By: #### 2 432-8, 2132-02 #### [facility] CLIA [id number] [address] [place] [address] [place] Glucose [Mass/Vol] 109 mg/dL High 74-99 [facility] Comment on above: Order Comment: Claudia vilchis Type: BLOOD SPECIMEN Ordering Facility: [facility] Address: [address] [place] [address] Result Comment: The [place] Diabetes Association (ADA) provides guidance for cutoff values for fasting glucose and random glucose. The ADA defines fasting as no caloric intake for at least 8 hours. Fasting plasma glucose results between 100 to 125 mg/dL indicate increased risk for diabetes (prediabetes). Fasting plasma glucose results greater than or equal to 126 mg/dL meet the criteria for diagnosis of diabetes. In the absence of unequivocal hyperglycemia, results should be confirmed by repeat testing. In a patient with classic symptoms of hyperglycemia or hyperglycemic crisis, random plasma glucose results greater than or equal to 200 mg/dL meet the criteria for diagnosis of diabetes. Reference: Standards of Medical Care in Diabetes 2016, [place] [employer] Association. Diabetes Care. 2016.39(Suppl 1). Performed By: #### 2 43209-03, 2132-02 #### [facility] CLIA [id number] [address] [place] [address] [place] Potassium [Moles/Vol] 4.3 mmol/L Normal 3.7-5.1 [facility] Comment on above: Order Comment: Claudia vilchis Type: BLOOD SPECIMEN Ordering Facility: [facility] Address: [address] [place] [address] Performed By: #### 2 43209-03, 2132-02 #### [facility] CLIA [id number] [address] [place], [place] [address] [place] Protein [Mass/Vol] 6.7 g/dL Normal 6.3-8.0 [facility] Comment on above: Order Comment: Speci men Type: BLOOD SPECIMEN Ordering Facility: [facility] Address: [address] [place] [address] Performed By: #### 2 4323-8, 2132-02 #### [facility] CLIA [id number] [address] [place] [address] [place] Sodium [Moles/Vol] 138 mmol/L Normal 136-144 [facility] Comment on above: Order Comment: Speci men Type: BLOOD SPECIMEN Ordering Facility: [facility] Address: [address] [place] [address] Performed By: #### 2 4328, 2132-02 #### [facility] CLIA [id number] [address] [place] [address] [place] Urea nitrogen [Mass/Vol] 21 mg/dL Normal 7-21 [facility] Comment on above: Order Comment: Speci men Type: BLOOD SPECIMEN Ordering Facility: [facility] Address: [address] [place] [address] Performed By: #### 2 432-8, 2132-02 #### [facility] CLIA [id number] [address] [place] [address] [place] Ferritin SerPl-mCncon 2024 Ferritin [Mass/Vol] 223.0 ng/mL High 14.7-205.1 [facility] Comment on above: Order Comment: Speci men Type: BLOOD SPECIMEN Ordering Facility: [facility] Address: [address] [place] [address] Performed By: #### 2 4323-8, 2132-02 #### [facility] CLIA [id number] [address] [place] [address] [place] Iron and Iron binding capaci ty panelon 12-12-2024 Iron [Mass/Vol] 46 ug/dL Normal 41-186 [facility] Comment on above: Order Comment: Speci men Type: BLOOD SPECIMEN Ordering Facility: [facility] Address: [address] [place] [address] Performed By: #### 2 4323-8, 2132-02 #### [facility] CLIA [id number] [address] [place] [address] [place] Iron binding capacity [Mass/Vol] 204 ug/dL Low 232-386 [facility] Comment on above: Order Comment: Speci men Type: BLOOD SPECIMEN Ordering Facility: [facility] Address: [address] [place] [address] Performed By: #### 2 4323-8, 2132-02 #### [facility] CLIA [id number] [address] [place] [address] [place] Iron/TIBC [Molar ratio] 22.5 % Normal 15.0-57.0 [facility] Comment on above: Order Comment: Speci men Type: BLOOD SPECIMEN Ordering Facility: [facility] Address: [address] [place] [address] Performed By: #### 2 4323-8, 2132-02 #### [facility] CLIA [id number] [address] [place] [address] [place] Magnesium SerPl-mCncon 12-12 Magnesium [Mass/Vol] 1.7 mg/dL Normal 1.7-2.3 [facility] Comment on above: Order Comment: Speci men Type: BLOOD SPECIMEN Ordering Facility: [facility] Address: [address] [place] [address] Performed By: #### 2 4323-8, 2132-02 #### [facility] CLIA [id number] [address] [place] [address] [place] TSH SerPl-aCncon 12-12-2024 TSH Qn 4.320 m[IU]/L High 0.270-4.200 [facility] Comment on above: Order Comment: Speci men Type: BLOOD SPECIMEN Ordering Facility: [facility] Address: [address] [place] [address] Performed By: #### 2 4323-8, 2132-02 #### [facility] CLIA [id number] [address] [place] [address] Vit B12 [facility]Pl[facility] 025 Cobalamin (Vitamin B12) [Mass/Vol] pg/mL High 232-1245 [facility] Comment on above: Order Comment: Speci men Type: BLOOD SPECIMEN Ordering Facility: [facility] Address: [address] [place] [address] Performed By: #### 2 4323-8, 2132-02 #### [facility] CLIA [id number] [address] [place] [address] OF [facility] XR CHEST 2V FRONTAL/LATon XR CHEST 2V FRONTAL/LAT * * *Final Repor t* * * DATE OF EXAM: Dec 12 2024 3:21PM [id number] - XR CHEST 2V FRONTAL/LAT / PROCEDURE REASON: multiple diagnoses * * * * Physician Interpretation * * * * EXAMINATION: CHEST RADIOGRAPH (2 VIEW FRONTAL and LATERAL) CLINICAL HISTORY: Acute cough Dyspnea, unspecified type MQ: [id number] EXAM DATE/TIME: 12/12/2024 3:21 PM COMPARISON: 04/10/2022 RESULT: Lines, tubes, and devices: None. Lungs and pleura: Mild to moderate interstitial prominence. No pleural effusion or pneumothorax seen. Slight basilar atelectasis. Cardiomediastinal silhouette: Mild cardiomegaly. Bones and soft tissues: Unremarkable. IMPRESSION: Pulmonary vascular congestion and cardiomegaly suggested with interval decrease in right pleural effusion. Manager Validation: CANDY Transcribe Date/Time: Dec 14 2024 4:55P Dictated by : BALWINDER GILL MD This examination was interpreted and the report reviewed and electronically signed by: BALWINDER GILL MD on Dec 14 2024 4:55PM EST [id number] CN Normal [facility] CNPNon 2024 CNPN Telephone (INTMWS) REINIER ELIZABETH ([id number]) 1935 F NFR Date Time Provider Department 11/29/24 ANAY SCHULER INTMWS During your visit today, we recorded the following information about you: Brianne Toribio RN 2024 1:01 PM Signed Patient was seen today by Yolette DENNISON with [facility] following ER visit. Yolette asking for one more visit next week to review medication changes and discharge from services. Call back number is [phone]. JUMA Katz Chitra, MD 2024 5:32 PM Signed Agree for one more visit Anay Iniguez MD, Krystle, RN 11/30/2024 8:13 AM Signed Call placed to Yolette and verbal order given for an additional skilled nurse visit. Brianne Toribio RN Allergies As of Date: 2024 Noted Allergy Reaction MACROBID (NITROFURANTOIN MONOHYD/*10/08/2024 5 - Intolerance Comments: N/V, masonkey, diarrhea AMANTADINE 05/09/2005 2 - Rash CAPOTEN (CAPTOPRIL) 05/09/2005 2 - Rash CEPHALEXIN 05/09/2005 2 - Rash ERYTHROMYCIN 05/09/2005 2 - Rash HCTZ (THIAZIDES) 03/26/2015 14 - Other: See Comments Comments: leg cramps IVP DYE (IODINE) 05/12/2005 2 - Rash NORVASC (AMLODIPINE BESYLATE) 08/27/2017 7 - Swelling Date Reviewed: 11/28/2024 Reviewed by: Chastity Last MA - Fully Assessed Reason for Visit: Orders [681] Prescriptions as of 11/30/2024 - amiodarone (PACERONE) 200 mg tablet Take 1 tablet by mouth once daily. - hydrALAZINE (APRESOLINE) 25 mg tablet Take 1 tablet by mouth three times a day. - carvedilol (COREG) 3.125 mg tablet Take 1 tablet by mouth two times a day. - netarsudil-latanopro st (ROCKLATAN) 0.02-0.005 % ophthalmic solution Use 1 drop in both eyes daily at bedtime. - ondansetron (ZOFRAN) 4 mg tablet Take 1 tablet by mouth every 8 hours as needed for nausea/vomiting. - losartan (COZAAR) 50 mg tablet Take 1 tablet by mouth two times a day. - atorvastatin (LIPITOR) 20 mg tablet Take 1 tablet by mouth every 48 hours. - levothyroxine (LEVOXYL) 25 mcg tablet Take 1 tablet by mouth once daily. Take on empty stomach. For Thyroid - omeprazole (PRILOSEC) 40 mg capsule Take 1 capsule by mouth daily before breakfast. 1/2 hr before meal. - cyanocobalamin, vitamin B-12, (VITAMIN B12 ORAL) Take by mouth once daily. - denosumab (PROLIA SUBCUTANEOUS) Inject subcutaneously once every 6 months. - vibegron (GEMTESA) 75 mg tablet Take 1 tablet by mouth once daily. - furosemide (LASIX) 20 mg tablet Take 1 tablet by mouth every other day. - ferrous sulfate 325 mg (65 mg iron) tablet Take 1 tablet by mouth once daily. - potassium chloride (K-TAB) 10 mEq tablet Take 1 tablet by mouth twice daily. - Spirometers and Accessories magdalena Use 3 times a day, each time blow into it for 10 reps - XARELTO 15 mg tablet Take 15 mg by mouth daily with dinner. - brimonidine (ALPHAGAN P) 0.15 % ophthalmic solution Use 1 Drop in the right eye twice daily. - timolol maleate (TIMOPTIC) 0.5 % ophthalmic solution Use 1 Drop in the right eye twice daily. - >Zippered Compression Knee High 30-40 mm custom CUSTOM MEASURE FOR KNEE HIGH ANGELO COMPRESSION STOCKINGS, 30-40 MM, WITH ZIPPERS PLEASE. IF UNABLE, PLEASE REFER TO [facility] AT [facility]. DX: EDEMA - latanoprost (XALATAN) 0.005 % ophthalmic solution 1 Drop daily at bedtime. - Cholecalciferol, Vitamin D3, 2,000 unit ORAL Cap Take one(1) tablet two(2) times daily. 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 Urgency of urination [R39.15] 02/20/2009 06/14/2020 Urge incontinence [N39.41] 02/20/2009 08/06/2016 Female stress incontinence [N39.3] 02/20/2009 08/06/2016 Nocturia [R35.1] 02/20/2009 08/06/2016 Symptomatic menopausal or female climacteric st*02/20/2009 08/06/2016 Postmenopausal atrophic vaginitis [N95.2] 02/20/2009 06/14/2020 Disorder of bone and cartilage, unspecified [M8*02/20/2009 03/24/2012 Osteoporosis with current pathological fracture*06/10/2010 Vitamin D deficiency [E55.9] 06/13/2010 Incisional hernia [K43.2] 12/14/2012 08/06/2016 Mixed hyperlipidemia [E78.2] 08/06/2016 Pedal edema [R60.0] 12/04/2016 Pulmonary hypertension (HCC) [I27.20] 05/07/2017 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 Normal [facility] CNOVon 11-28-2024 CNOV Office Visit (INTMWS) REINIER ELIZABETH ([id number]) 1935 F NFR Date Time Provider Department 11/28/24 3:40 PM ANAY SCHULER INTMWS During your visit today, we recorded the following information about you: Pulse Respiration Blood pressure Weight 56/minute 18/minute 152/94 63.1 kg Anay Schuler MD 11/28/2024 4:49 PM Signed Pt seen by Cardiology on 11/25/24. [facility] ED 11/19/24: History of Present Illness Chief Complaint: Palpitations Informant: patient and family Onset/Context/Timing Onset: Yesterday Context: Sudden Onset Timing: Continuous Quality: Weakness Location: Lower extremities Worsened by: Nothing Relieved by: Nothing Clinical Impression: Bradycardia, sinus, Essential hypertension Narrative: Patient presents with weakness that began last night. Patient states that her legs feel weak. Patient states she broke out into a sweat. Patient admits to some nausea. Patient denies any chest pain or palpitations. Patient denies any shortness of breath or cough. Patient denies any headaches. Patient denies any fevers or chills. Daughter states patient has a history of atrial fibrillation and thinks she went back to a sinus rhythm last night. Medical decision making narrative: Differential diagnosis includes cardiac dysrhythmia, cardiac ischemia, pneumonia, electrolyte abnormality, urinary tract infection, dehydration, and viral illness. EKG will be obtained to assess for cardiac dysrhythmia and cardiac ischemia. Chest x-ray will be obtained to assess for pneumonia, congestive heart failure, and bronchitis. CBC will be obtained to assess for leukocytosis and anemia. Basic metabolic profile will be obtained to assess for electrolyte abnormality and renal function. High-sensitivity troponin will be obtained to assess for cardiac ischemia. PT with INR and PTT will be obtained to assess for coagulopathy. Urinalysis will be obtained to assess for urinary tract infection and hematuria. Lab results narrative: CBC was reviewed. There is a mild anemia with a hemoglobin of 10.7 and hematocrit 33.5. PT with INR and PTT were reviewed. Pro time was 26.3 and INR is 2.4 PTT was slightly elevated at 39.3. Basic metabolic profile was reviewed. BUN was slightly elevated at 28 and creatinine was 1.63. These are consistent with previous results. Serum magnesium was reviewed and was normal at 1.6. High-sensitivity troponin was reviewed and was slightly elevated at 38. 2-hour repeat high-sensitivity troponin was reviewed and was improved at 37. These are decreased from previous results on 10/30/2024 and 10/11/2024. Patient was advised of her findings. Patient's blood pressure increased to 204/79. Patient was ordered a dose of clonidine. However, on reevaluation patient's blood pressure was 154/79. The clonidine was held. Case was discussed with Dr. Olvera from cardiology. He recommended holding the metoprolol. Patient was instructed to follow-up with cardiology as scheduled. Daughter states patient has an appointment this Thursday. Patient and daughter were instructed to return if worse in any way. Patient and daughter understood and were agreeable with the plan. All questions were answered. EKG: Attestation: I personally reviewed and interpreted this EKG as follows: Interpretation: No Acute Injury Pattern and Sinus Bradycardia (48) Comments: EKG was obtained. On my independent interpretation, it showed a sinus bradycardia with a rate of 48. AR interval, QRS interval, and QTc intervals were all normal. [place] was normal. There are no acute ST or T wave changes Imaging: RAD/Chest 1 View (Portable) IMPRESSION: Unremarkable exam. No acute process. Recommendation: Stop taking the metoprolol but continue the amiodarone and losartan Anay Schuler MD 11/28/2024 4:20 PM Signed We discussed your recent health concerns and care plan: - Atrial Fibrillation (AFib) and Blood Pressure Management: - You are no longer taking Metoprolol. Continue taking Amiodarone once daily as prescribed. - You were recently started on Carvedilol 3.25 mg daily to help manage your blood pressure. Continue taking this as directed. - You are also taking Hydralazine three times daily for blood pressure control. Continue this medication as prescribed. - Your blood pressure is still elevated but improving. The home health nurse will continue monitoring it during visits. Please let us know if you experience any symptoms such as dizziness, chest pain, or shortness of breath. - Anemia and Possible Blood Loss: - We will check for hidden blood loss in your stool using an iFOBT (stool sample test). Please follow the instructions provided by the lab to collect and return the sample within one week. - In one month, we will repeat lab work to check your (more content not included)... Normal [facility] Cardiology Visit Reporton Cardiology Visit Report Normal [facility] 12 Lead EKGon 11-19-2024 12 Lead EKG Normal [facility] Absolute lymphocyte countOrd ered By: Beto Keene on 11-19-2024 Lymphocytes Auto (Unsp spec) [#/Vol] 1.22 10*3/uL 0.83-4.51 [facility] Absolute neutrophil countOrd ered By: Beto Keene on 11-19-2024 Neutrophils (Bld) [#/Vol] 4.3 10*3/uL 2.0-7.7 [facility] Activated partial thrombopla stin time (aPTT) in platelet poor plasma by coagulation aOrdered By: Beto Keene on 11-19-2024 aPTT Coag (PPP) [Time] 39.3 s High 24.1-36.2 [facility] Anion gap in Serum or Plasma Ordered By: Beto Keene on 11-19-2024 Anion gap [Moles/Vol] 12 mmol/L 5- [facility] Automated lymphocyte count a s percentage of total leukocytesOrdered By: Beto Keene on 11-19-2024 Lymphocytes/100 WBC Auto (Unsp spec) 19.9 % - [facility] BUN/creatinine ratioOrdered By: Beto Keene on 11-19-2024 Urea nitrogen/Creatinine [Mass ratio] 16.9 mg/mg 10- [facility] Basic Metabolic Profile (BMP )on 11-19-2024 BUN/CRE 16.9 RATIO Normal - [facility] Comment on above: Performed By: #### L 300.3900, L300.4310, L100.0100, L500.2500, L501.4021, L501.5200 ####[facility] [address] [place], [address] Calcium [Mass/Vol] 7.3 mg/dL Low 7.6-11.0 [facility] Comment on above: Performed By: #### L 300.3900, L300.4310, L100.0100, L500.2500, L501.4021, L501.5200 ####[facility] [address] [place], [address] Chloride [Moles/Vol] 109 mmol/L High 98-108 [facility] Comment on above: Performed By: #### L 300.3900, L300.4310, L100.0100, L500.2500, L501.4021, L501.5200 ####[facility] [address] [place], [address] CO2 [Moles/Vol] 16.5 mmol/L Low 21.0-32.0 [facility] Comment on above: Performed By: #### L 300.3900, L300.4310, L100.0100, L500.2500, L501.4021, L501.5200 ####[facility] [address] [place], [address] Creatinine [Mass/Vol] 1.63 mg/dL High 0.70-1.20 [facility] Comment on above: Performed By: #### L 300.3900, L300.4310, L100.0100, L500.2500, L501.4021, L501.5200 ####[facility] [address] [place], [address] ECRCL 21.24 ml/min Low 50-250 [facility] Comment on above: Performed By: #### L 300.3900, L300.4310, L100.0100, L500.2500, L501.4021, L501.5200 ####[facility] [address] [place], [address] GAP 12 Normal 5-15 [facility] Comment on above: Performed By: #### L 300.3900, L300.4310, L100.0100, L500.2500, L501.4021, L501.5200 ####[facility] [address] [place], [address] GFR/1.73 sq M.predicted among non-blacks MDRD (S/P/Bld) [Vol rate/Area] 30 mL/min/{1.73_m2} Low >60 [facility] Comment on above: Result Comment: mL/m in/1.73m2 CKD-EPI Creatinine Equation (2020) Performed By: #### L 300.3900, L300.4310, L100.0100, L500.2500, L501.4021, L501.5200 ####[facility] [address] [place], [address] Glucose [Mass/Vol] 102 mg/dL High 70-99 [facility] Comment on above: Performed By: #### L 300.3900, L300.4310, L100.0100, L500.2500, L501.4021, L501.5200 ####[facility] [address] [place], [address] Potassium [Moles/Vol] 3.9 mmol/L Normal 3.3-5.1 [facility] Comment on above: Result Comment: Hemo lysis present, Results??could be affected.?? Performed By: #### L 300.3900, L300.4310, L100.0100, L500.2500, L501.4021, L501.5200 ####[facility] [address] [place], [address] Sodium [Moles/Vol] 138 mmol/L Normal 133-145 [facility] Comment on above: Performed By: #### L 300.3900, L300.4310, L100.0100, L500.2500, L501.4021, L501.5200 ####[facility] [address] [place], [address] Urea nitrogen [Mass/Vol] 28 mg/dL High - [facility] Comment on above: Performed By: #### L 300.3900, L300.4310, L100.0100, L500.2500, L501.4021, L501.5200 ####[facility] [address] [place], [address] Basophil percentageOrdered B y: Beto Keene on 11-19-2024 Basophils/100 WBC (Bld) 0.7 % 0-1 [facility] CBC W/Diff, Automatedon 10-28 Absolute Lymph 1.22 X10 3/uL Normal 0.83-4.51 [facility] Comment on above: Performed By: #### L 300.3900, L300.4310, L100.0100, L500.2500, L501.4021, L501.5200 ####[facility] [address] [place], [address] Absolute Neut 4.3 X10 3/uL Normal 2.0-7.7 [facility] Comment on above: Performed By: #### L 300.3900, L300.4310, L100.0100, L500.2500, L501.4021, L501.5200 ####[facility] [address] [place], [address] Basophils/100 WBC (Bld) 0.7 % Normal 0-1 [facility] Comment on above: Performed By: #### L 300.3900, L300.4310, L100.0100, L500.2500, L501.4021, L501.5200 ####[facility] [address] [place], [address] Eosinophils/100 WBC (Bld) 2.3 % Normal 0-5 [facility] Comment on above: Performed By: #### L 300.3900, L300.4310, L100.0100, L500.2500, L501.4021, L501.5200 ####[facility] [address] [place], [address] Erythrocyte distribution width (RBC) [Ratio] 14.3 % Normal 11.6-14.6 [facility] Comment on above: Performed By: #### L 300.3900, L300.4310, L100.0100, L500.2500, L501.4021, L501.5200 ####[facility] [address] [place], [address] Hematocrit (Bld) [Volume fraction] 33.5 % Low 37-47 [facility] Comment on above: Performed By: #### L 300.3900, L300.4310, L100.0100, L500.2500, L501.4021, L501.5200 ####[facility] [address] [place], [address] Hemoglobin (Bld) [Mass/Vol] 10.7 g/dL Low 12.0-15.0 [facility] Comment on above: Performed By: #### L 300.3900, L300.4310, L100.0100, L500.2500, L501.4021, L501.5200 ####[facility] [address] [place], [address] IG% 0.300 Normal 0.0-0.9 [facility] Comment on above: Result Comment: IG% - Immature Granulocytes (promyelocytes, myelocytes andmetamyelocytes) > 1% indicates that a LEFT SHIFT is Present. Performed By: #### L 300.3900, L300.4310, L100.0100, L500.2500, L501.4021, L501.5200 ####[facility] [address] [place], [address] Lymphocytes/100 WBC (Bld) 19.9 % Normal 19-41 [facility] Comment on above: Performed By: #### L 300.3900, L300.4310, L100.0100, L500.2500, L501.4021, L501.5200 ####[facility] [address] [place], [address] MCH (RBC) [Entitic mass] 31.9 pg Normal 27.0-32.0 [facility] Comment on above: Performed By: #### L 300.3900, L300.4310, L100.0100, L500.2500, L501.4021, L501.5200 ####[facility] [address] [place], [address] MCHC (RBC) [Mass/Vol] 31.9 g/dL Low 32-36 [facility] Comment on above: Performed By: #### L 300.3900, L300.4310, L100.0100, L500.2500, L501.4021, L501.5200 ####[facility] [address] [place], [address] MCV (RBC) [Entitic vol] 100.0 fL High 81-99 [facility] Comment on above: Performed By: #### L 300.3900, L300.4310, L100.0100, L500.2500, L501.4021, L501.5200 ####[facility] [address] [place], [address] Monocytes/100 WBC (Bld) 6.0 % Normal 0-10 [facility] Comment on above: Performed By: #### L 300.3900, L300.4310, L100.0100, L500.2500, L501.4021, L501.5200 ####[facility] [address] [place], [address] Neutrophils/100 WBC (Bld) 70.8 % High 47-70 [facility] Comment on above: Performed By: #### L 300.3900, L300.4310, L100.0100, L500.2500, L501.4021, L501.5200 ####[facility] [address] [place], [address] Nucleated RBC (Bld) [#/Vol] 0 10*3/uL Normal 0-5 [facility] Comment on above: Performed By: #### L 300.3900, L300.4310, L100.0100, L500.2500, L501.4021, L501.5200 ####[facility] [address] [place], [address] Platelet mean volume (Bld) [Entitic vol] 10.5 fL Normal 6.2-12.0 [facility] Comment on above: Performed By: #### L 300.3900, L300.4310, L100.0100, L500.2500, L501.4021, L501.5200 ####[facility] [address] [place], [address] Platelets (Bld) [#/Vol] 226 10*3/uL Normal 150-450 [facility] Comment on above: Performed By: #### L 300.3900, L300.4310, L100.0100, L500.2500, L501.4021, L501.5200 ####[facility] [address] [place], [address] RBC (Bld) [#/Vol] 3.35 10*6/uL Low 4.2-5.4 [facility] Comment on above: Performed By: #### L 300.3900, L300.4310, L100.0100, L500.2500, L501.4021, L501.5200 ####[facility] [address] [place], [address] RDW SD 52.0 fl High 35.1-43.9 [facility] Comment on above: Performed By: #### L 300.3900, L300.4310, L100.0100, L500.2500, L501.4021, L501.5200 ####[facility] [address] [place], [address] WBC (Bld) [#/Vol] 6.1 10*3/uL Normal 4.4-11.0 [facility] Comment on above: Performed By: #### L 300.3900, L300.4310, L100.0100, L500.2500, L501.4021, L501.5200 ####[facility] [address] [place], [address] Carbon dioxide, total [Moles /volume] in Central venous bloodOrdered By: Beto Keene on 11-19-2024 CO2 [Moles/Vol] 16.5 mmol/L Low 21.0-32.0 [facility] Chest 1 View (Portable)on Chest 1 View (Portable) Normal [facility] Chloride assayOrdered By: Pietro Keene on 11-19-2024 Chloride [Moles/Vol] 109 mmol/L High 98-108 [facility] Emergency Department Summary on 11-19-2024 Emergency Department Summary Normal [facility] Eosinophil percentageOrdered By: Beto Keene on 11-19-2024 Eosinophils/100 WBC (Bld) 2.3 % 0-5 [facility] Erythrocyte distribution wid th ratioOrdered By: Beto Keene on 11-19-2024 Erythrocyte distribution width (RBC) [Ratio] 14.3 % 11.6-14.6 [facility] Erythrocyte distribution wid th standard deviationOrdered By: Beto Keene on 11-19-2024 Erythrocyte distribution width (RBC) [Ratio] 52.0 fl High 35.1-43.9 [facility] Glomerular filtration rate ( GFR) estimation/1.73 sq m using serum, plasma, or whole bOrdered By: Beto Keene on 11-19-2024 GFR/1.73 sq M.predicted among non-blacks MDRD (S/P/Bld) [Vol rate/Area] 30 mL/min/{1.73_m2} Low >60 [facility] Comment on above: mL/min/1.73m2 CKD-EP I Creatinine Equation (2020) Hematocrit Auto (Bld) [Volum e fraction]Ordered By: Beto Keene on 11-19-2024 Hematocrit (Bld) [Volume fraction] 33.5 % Low 37-47 [facility] Hemoglobin measurementOrdere d By: Beto Keene on 11-19-2024 Hemoglobin (Bld) [Mass/Vol] 10.7 g/dL Low 12.0-15.0 [facility] Immature granulocytes/100 WB C Auto (Bld)Ordered By: Beto Keene on 11-19-2024 Immature granulocytes/100 WBC (Bld) 0.300 % 0.0-0.9 [facility] Comment on above: IG% - Immature Granu locytes (promyelocytes, myelocytes and metamyelocytes) > 1% indicates that a LEFT SHIFT is Present. International normalized rat io (INR) calculationOrdered By: Beto Keene on 11-19-2024 INR Coag (Bld) [Relative time] 2.4 {INR} [facility] L499.0042on 11-19-2024 Trop T High Sen 37 ng/L High <=14 [facility] Comment on above: Performed By: #### L 499.0042 ####[facility] [address] [place], [place], [address] L499.0043on 11-19-2024 Trop T High Sen Normal <=14 [facility] Comment on above: Result Comment: OLIMPIA ENT DISCHARGED Performed By: #### L 499.0043 ####[facility] [address] [place], [address] L501.4021on 11-19-2024 Trop T High Sen 38 ng/L High <=14 [facility] Comment on above: Performed By: #### L 300.3900, L300.4310, L100.0100, L500.2500, L501.4021, L501.5200 ####[facility] [address] [place], [address] MCV (mean corpuscular volume ) determinationOrdered By: Beto Keene on 11-19-2024 MCV (RBC) [Entitic vol] 100.0 fL High 81-99 [facility] Magnesiumon 11-19-2024 Magnesium [Mass/Vol] 1.6 mg/dL Normal 1.5-2.2 [facility] Comment on above: Performed By: #### L 300.3900, L300.4310, L100.0100, L500.2500, L501.4021, L501.5200 ####[facility] [address] [facility] [place], [place], [id number] Magnesium measurement (mass/ volume)Ordered By: Beto Keene on 11-19-2024 Magnesium (Unsp spec) [Mass/Vol] 1.6 mg/dL 1.5-2.2 [facility] Mean corpuscular hemoglobin (MCH) determinationOrdered By: Beto Keene on 11-19-2024 MCH (RBC) [Entitic mass] 31.9 pg 27.0-32.0 [facility] Mean corpuscular hemoglobin concentration (MCHC) determinationOrdered By: Beto Keene on 11-19-2024 MCHC (RBC) [Mass/Vol] 31.9 g/dL Low 32-36 [facility] Mean platelet volume determi nationOrdered By: Beto Keene on 11-19-2024 Platelet mean volume (Bld) [Entitic vol] 10.5 fL 6.2-12.0 [facility] Monocyte percentageOrdered B y: Beto Keene on 11-19-2024 Monocytes/100 WBC (Bld) 6.0 % 0-10 [facility] Neutrophil percentageOrdered By: Beto Keene on 11-19-2024 Neutrophils/100 WBC (Bld) 70.8 % High 47-70 [facility] Nucleated red blood cell per centageOrdered By: Beto Keene on 11-19-2024 Nucleated RBC/100 WBC (Bld) [Ratio] 0 % 0-5 [facility] Partial Thromboplast Timeon 11-19-2024 aPTT Coag (Bld) [Time] 39.3 s High 24.1-36.2 [facility] Comment on above: Performed By: #### L 300.3900, L300.4310, L100.0100, L500.2500, L501.4021, L501.5200 ####[facility] [address] [place], [address] Platelet countOrdered By: Pietro Kenee on 11-19-2024 Platelets (Bld) [#/Vol] 226 10*3/uL 150-450 [facility] Potassium measurement (mass/ volume)Ordered By: Beto Keene on 11-19-2024 Potassium (Unsp spec) [Mass/Vol] 3.9 mmol/L 3.3-5.1 [facility] Comment on above: Hemolysis present, R esults could be affected. Prothrombin Time w/INRon INR Coag (PPP) [Relative time] 2.4 {INR} Normal [facility] Comment on above: Performed By: #### L 300.3900, L300.4310, L100.0100, L500.2500, L501.4021, L501.5200 ####[facility] [address] [place], [address] PT Coag (PPP) [Time] 26.3 s High 11.7-14.9 [facility] Comment on above: Performed By: #### L 300.3900, L300.4310, L100.0100, L500.2500, L501.4021, L501.5200 ####[facility] [address] [place], [address] Prothrombin timeOrdered By: Beto Keene on 11-19-2024 PT Coag (PPP) [Time] 26.3 s High 11.7-14.9 [facility] RBC Auto (Bld) [#/Vol]Ordere d By: Beto Keene on 11-19-2024 RBC (Bld) [#/Vol] 3.35 10*6/uL Low 4.2-5.4 [facility] Serum creatinine measurement (mass/volume)Ordered By: Beto Keene on 11-19-2024 Creatinine [Mass/Vol] 1.63 mg/dL High 0.70-1.20 [facility] Serum glucose measurement (m ass/volume)Ordered By: Beto Keene on 11-19-2024 Glucose [Mass/Vol] 102 mg/dL High 70-99 [facility] Serum or plasma calcium dex urement (mass/volume)Ordered By: Beto Keene on 11-19-2024 Calcium [Mass/Vol] 7.3 mg/dL Low 7.6-11.0 [facility] Serum or plasma urea nitroge n measurement (mass/volume)Ordered By: Beto Keene on 11-19-2024 Urea nitrogen [Mass/Vol] 28 mg/dL High 4-19 [facility] Sodium levelOrdered By: Beto Keene on 11-19-2024 Sodium [Moles/Vol] 138 mmol/L 133-145 [facility] Troponin T.cardiac [Mass/vol ume] in Serum or Plasma by High sensitivity methodOrdered By: Beto Keene on 11-19-2024 Troponin T.cardiac High sensitivity method [Mass/Vol] 37 ng/L High <14 [facility] Troponin T.cardiac High sensitivity method [Mass/Vol] 38 ng/L High <14 [facility] Comment on above: Delta: 45 on 5-1208 White blood cell (WBC) count Ordered By: Beto Keene on 11-19-2024 WBC (Bld) [#/Vol] 6.1 10*3/uL 4.4-11.0 [facility] 12 Lead EKG performed by [facility] on 05-20-2025 12 Lead EKG performed by [facility] Office Visit Reporton 2024 Office Visit Report [facility] CNOVon 11-14-2024 CNOV Office Visit (INTMWS) ELIZABETHREINIER LOPEZ ([id number]) 1935 F NFR Date Time Provider Department 11/14/24 3:40 PM ANAY SCHULER INTSebastienWS During your visit today, we recorded the following information about you: Pulse Respiration Blood pressure Weight 119/minute 16/minute 158/100 62.8 kg Anay Schuler MD 11/14/2024 1:59 PM Addendum We discussed your heart health and current medications: - Start taking Metoprolol 25 mg twice daily to help lower your heart rate. This prescription has been sent to [facility]. If you pick it up in the evening, take one dose today and begin taking two doses daily starting tomorrow. Do not use any leftover Metoprolol at home, as the dosage may differ. - Continue taking Losartan 50 mg twice daily as prescribed. - Continue taking Amiodarone 200 mg twice daily. This medication was started recently and will take time to fully take effect. It will gradually help regulate your heart rhythm. - Continue taking your blood thinner as prescribed. - Avoid taking Carvedilol, as it has been discontinued. - Monitor your heart rate and blood pressure at home using a pulse oximeter. If your heart rate drops below 60 or you experience symptoms such as dizziness, confusion, chest pain, or shortness of breath, please contact our office immediately. We discussed your fluid retention and Lasix (diuretic) use: - Take Lasix 20 mg as needed (PRN) for fluid retention. Avoid taking higher doses or consecutive daily doses unless directed, as this can worsen your condition. Monitor for signs of fluid retention, such as swelling in your legs or increased coughing. - You no longer need to take potassium supplements, as they have been discontinued. - Continue drinking approximately three 16.5 oz bottles of water daily. Avoid excessive fluid intake, as it may strain your kidneys. We discussed your cough: - Your cough may be related to fluid retention or postnasal drip. Monitor your symptoms, and if your cough worsens or you experience shortness of breath, please contact our office. We discussed your bowel movements: - Your occasional watery stools may be related to Lasix or lactose intolerance. Avoid milk and dairy products for now, and try lactose-free alternatives to see if this improves your symptoms. - If your symptoms persist or worsen, please let us know. We discussed your upcoming appointments: - You are scheduled for an EKG tomorrow at your commonwealth attorney?s office. - You have a follow-up appointment with Nurse Practitioner Ning Spencer on November 25 at 2:00 PM. Please keep this appointment. Please continue monitoring your symptoms closely and let us know if you have any concerns or if your condition changes. Anay Schuler MD 11/14/2024 6:49 PM Signed Reason for Visit Follow up HPI Reinier is a 88-year-old female with a history of atrial fibrillation, presenting for follow-up. Reinier was recently seen by the [facility] on November 04. She is currently on anticoagulation therapy. Recent changes to her medication regimen include the addition of amiodarone on Thursday. She is also taking losartan 50 mg twice daily. carvedilol was discontinued due to bradycardia, and metoprolol 25 mg twice daily was initiated. Reinier has been experiencing fluctuations in weight, with a baseline of 139-140 lbs. She recently gained 8 lbs, reaching 148 lbs, which prompted the use of Lasix 40 mg for three consecutive days. This resulted in a decrease in weight but also led to an episode of atrial fibrillation. Reinier was subsequently instructed to take Lasix 20 mg as needed. She is not currently taking potassium supplements. Reinier has been experiencing a persistent cough, which improves with diuresis. She also reports episodes of soft, watery stools, particularly after taking Lasix. She suspects a possible correlation with dairy consumption, specifically milk. She denies any recent changes in diet or fluid intake, consuming approximately 3-4 bottles of spring water daily. She has reduced her intake of coffee and tea and occasionally drinks orange juice. She is monitoring her sodium intake and elevates her feet at night. Social History Tobacco Use Smoking status: Former Current packs/day: 0.00 Types: Cigarettes Start date: 07/06/1971 Quit date: 07/06/1976 Years since quittin.3 Smokeless tobacco: Never Tobacco comments: Quit 4-5 cig per day Vaping Use Vaping status: Never Used Substance Use Topics Alcohol use: No Drug use: No Past medical history, appointments, medications, allergies reviewed. Pertinent Lab/Diagnostic Studies are reviewed and discussed today Current Outpatient Medications: amiodarone (PACERONE) 200 mg tablet ondansetron (ZOFRAN) 4 mg tablet losartan (COZAAR) 50 mg tablet atorvastatin (LIPITOR) 20 mg tablet levothyroxine (LEVOXYL) 25 mcg tablet omepra (more content not included)... Normal [facility] 11-14-2024 CNPN Telephone (INTMWS) REINIER ELIZABETH ([id number]) 1935 F NFR Date Time Provider Department 11/14/24 ANAY SCHULER INTWS During your visit today, we recorded the following information about you: Yany Nieto MA 11/14/2024 9:31 AM Signed TC to patient to inquire is patient willing to come in sooner? (1230, 1?) If agreeable just leave original appt at 340 time. Unable to reach patient. Left VM to return call to office. SHIN Pereira Stephanie, RN 11/14/2024 9:50 AM Signed Patient's daughter calls back and states that patient can come in early for appointment. Patient will be in 12:30/1. Yolette Pérez RN Allergies As of Date: 11/14/2024 Noted Allergy Reaction MACROBID (NITROFURANTOIN MONOHYD/*10/08/2024 5 - Intolerance Comments: N/V, masonkey, diarrhea AMANTADINE 05/09/2005 2 - Rash CAPOTEN (CAPTOPRIL) 05/09/2005 2 - Rash CEPHALEXIN 05/09/2005 2 - Rash ERYTHROMYCIN 05/09/2005 2 - Rash HCTZ (THIAZIDES) 03/26/2015 14 - Other: See Comments Comments: leg cramps IVP DYE (IODINE) 05/12/2005 2 - Rash NORVASC (AMLODIPINE BESYLATE) 08/27/2017 7 - Swelling Date Reviewed: 10/21/2024 Reviewed by: Erika Kwan APRN.BILLING AND ACCOUNTING STAFF ASSISTANT - Fully Assessed Prescriptions as of 11/14/2024 - ondansetron (ZOFRAN) 4 mg tablet Take 1 tablet by mouth every 8 hours as needed for nausea/vomiting. - losartan (COZAAR) 50 mg tablet Take 1 tablet by mouth two times a day. - atorvastatin (LIPITOR) 20 mg tablet Take 1 tablet by mouth every 48 hours. - levothyroxine (LEVOXYL) 25 mcg tablet Take 1 tablet by mouth once daily. Take on empty stomach. For Thyroid - omeprazole (PRILOSEC) 40 mg capsule Take 1 capsule by mouth daily before breakfast. 1/2 hr before meal. - cyanocobalamin, vitamin B-12, (VITAMIN B12 ORAL) Take by mouth once daily. - denosumab (PROLIA SUBCUTANEOUS) Inject subcutaneously once every 6 months. - vibegron (GEMTESA) 75 mg tablet Take 1 tablet by mouth once daily. - hydrOXYzine HCl (ATARAX) 25 mg tablet Take 1 tablet by mouth every 4 hours as needed for itching/rash. - furosemide (LASIX) 20 mg tablet Take 1 tablet by mouth every other day. - ferrous sulfate 325 mg (65 mg iron) tablet Take 1 tablet by mouth once daily. - hydrALAZINE (APRESOLINE) 10 mg tablet Take 1 tablet by mouth four times daily. - carvedilol (COREG) 12.5 mg tablet Take 12.5 mg by mouth two times a day with meals. - potassium chloride (K-TAB) 10 mEq tablet Take 1 tablet by mouth twice daily. - Spirometers and Accessories magdalena Use 3 times a day, each time blow into it for 10 reps - XARELTO 15 mg tablet Take 15 mg by mouth daily with dinner. - brimonidine (ALPHAGAN P) 0.15 % ophthalmic solution Use 1 Drop in the right eye twice daily. - timolol maleate (TIMOPTIC) 0.5 % ophthalmic solution Use 1 Drop in the right eye twice daily. - >Zippered Compression Knee High 30-40 mm custom CUSTOM MEASURE FOR KNEE HIGH ANGELO COMPRESSION STOCKINGS, 30-40 MM, WITH ZIPPERS PLEASE. IF UNABLE, PLEASE REFER TO BALA AT [facility]. DX: EDEMA - latanoprost (XALATAN) 0.005 % ophthalmic solution 1 Drop daily at bedtime. - TRAVATAN Z 0.004 % Drop daily at bedtime. - Cholecalciferol, Vitamin D3, 2,000 unit ORAL Cap Take one(1) tablet two(2) times daily. 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 Urgency of urination [R39.15] 02/20/2009 06/14/2020 Urge incontinence [N39.41] 02/20/2009 08/06/2016 Female stress incontinence [N39.3] 02/20/2009 08/06/2016 Nocturia [R35.1] 02/20/2009 08/06/2016 Symptomatic menopausal or female climacteric st*02/20/2009 08/06/2016 Postmenopausal atrophic vaginitis [N95.2] 02/20/2009 06/14/2020 Disorder of bone and cartilage, unspecified [M8*02/20/2009 03/24/2012 Osteoporosis with current pathological fracture*06/10/2010 Vitamin D deficiency [E55.9] 06/13/2010 Incisional hernia [K43.2] 12/14/2012 08/06/2016 Mixed hyperlipidemia [E78.2] 08/06/2016 Pedal edema [R60.0] 12/04/2016 Pulmonary hypertension (HCC) [I27.20] 05/07/2017 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 Normal [facility] 12 Lead EKG performed by BMS on 11-11-2024 12 Lead EKG performed by BMS Normal [facility] Cardiology Visit Reporton Cardiology Visit Report Normal [facility] Anion gap in Serum or Plasma Ordered By: Jake Kingston on 11-08-2024 Anion gap [Moles/Vol] 10 mmol/L 11-10 [facility] BUN/creatinine ratioOrdered By: Jake Kingston on 11-08-2024 Urea nitrogen/Creatinine [Mass ratio] 13.2 mg/mg - [facility] Basic Metabolic Profile (BMP )on 11-08-2024 BUN/CRE 13.2 RATIO Normal - [facility] Comment on above: Performed By: #### L 500.2500 ####[facility] [address] [place], [address] Calcium [Mass/Vol] 9.3 mg/dL Normal 7.6-11.0 [facility] Comment on above: Performed By: #### L 500.2500 ####[facility] [address] [place], [address] Chloride [Moles/Vol] 110 mmol/L High 98-108 [facility] Comment on above: Performed By: #### L 500.2500 ####[facility] [address] [place], [address] CO2 [Moles/Vol] 22.7 mmol/L Normal 21.0-32.0 [facility] Comment on above: Performed By: #### L 500.2500 ####[facility] [address] [place], [address] Creatinine [Mass/Vol] 1.31 mg/dL High 0.70-1.20 [facility] Comment on above: Performed By: #### L 500.2500 ####[facility] [address] [place], [address] GAP 10 Normal 5-15 [facility] Comment on above: Performed By: #### L 500.2500 ####[facility] [address] [place], [address] GFR/1.73 sq M.predicted among non-blacks MDRD (S/P/Bld) [Vol rate/Area] 39 mL/min/{1.73_m2} Low >60 [facility] Comment on above: Result Comment: mL/m in/1.73m2 CKD-EPI Creatinine Equation (2020) Performed By: #### L 500.2500 ####[facility] [address] [place], [address] Glucose [Mass/Vol] 111 mg/dL High 70-99 [facility] Comment on above: Performed By: #### L 500.2500 ####[facility] [address] [place], [address] Potassium [Moles/Vol] 3.6 mmol/L Normal 3.3-5.1 [facility] Comment on above: Performed By: #### L 500.2500 ####[facility] [address] [place], [address] Sodium [Moles/Vol] 142 mmol/L Normal 133-145 [facility] Comment on above: Performed By: #### L 500.2500 ####[facility] [address] [place], [address] Urea nitrogen [Mass/Vol] 17 mg/dL Normal 4-19 [facility] Comment on above: Performed By: #### L 500.2500 ####[facility] [address] [place], [address] CNPGail 11-08-2024 CNPN Telephone (INTMWS) REINIER ELIZABETH ([id number]) 1935 F NFR Date Time Provider Department 11/08/24 ANAY SCHULER INTMWS During your visit today, we recorded the following information about you: Abimbola Abbott LPN 11/08/2024 1:32 PM Signed Harjinder from [facility] calling with PT plan of care, 2 visits weekly for 3 weeks working on functional mobility. Patient BP was 187/78 being monitored by Interior Design Professional. No need for return call. Anay Schuler MD 11/08/2024 5:01 PM Signed Agree with follow up Anay Iniguez MD Allergies As of Date: 11/08/2024 Noted Allergy Reaction MACROBID (NITROFURANTOIN MONOHYD/*10/08/2024 5 - Intolerance Comments: N/V, shakey, diarrhea AMANTADINE 05/09/2005 2 - Rash CAPOTEN (CAPTOPRIL) 05/09/2005 2 - Rash CEPHALEXIN 05/09/2005 2 - Rash ERYTHROMYCIN 05/09/2005 2 - Rash HCTZ (THIAZIDES) 03/26/2015 14 - Other: See Comments Comments: leg cramps IVP DYE (IODINE) 05/12/2005 2 - Rash NORVASC (AMLODIPINE BESYLATE) 08/27/2017 7 - Swelling Date Reviewed: 10/21/2024 Reviewed by: Erika Kwan APRN.BILLING AND ACCOUNTING STAFF ASSISTANT - Fully Assessed Reason for Visit: PT plan of care [Other] Prescriptions as of 11/09/2024 - ondansetron (ZOFRAN) 4 mg tablet Take 1 tablet by mouth every 8 hours as needed for nausea/vomiting. - losartan (COZAAR) 50 mg tablet Take 1 tablet by mouth two times a day. - atorvastatin (LIPITOR) 20 mg tablet Take 1 tablet by mouth every 48 hours. - levothyroxine (LEVOXYL) 25 mcg tablet Take 1 tablet by mouth once daily. Take on empty stomach. For Thyroid - omeprazole (PRILOSEC) 40 mg capsule Take 1 capsule by mouth daily before breakfast. 1/2 hr before meal. - cyanocobalamin, vitamin B-12, (VITAMIN B12 ORAL) Take by mouth once daily. - denosumab (PROLIA SUBCUTANEOUS) Inject subcutaneously once every 6 months. - vibegron (GEMTESA) 75 mg tablet Take 1 tablet by mouth once daily. - hydrOXYzine HCl (ATARAX) 25 mg tablet Take 1 tablet by mouth every 4 hours as needed for itching/rash. - furosemide (LASIX) 20 mg tablet Take 1 tablet by mouth every other day. - ferrous sulfate 325 mg (65 mg iron) tablet Take 1 tablet by mouth once daily. - hydrALAZINE (APRESOLINE) 10 mg tablet Take 1 tablet by mouth four times daily. - carvedilol (COREG) 12.5 mg tablet Take 12.5 mg by mouth two times a day with meals. - potassium chloride (K-TAB) 10 mEq tablet Take 1 tablet by mouth twice daily. - Spirometers and Accessories magdalena Use 3 times a day, each time blow into it for 10 reps - XARELTO 15 mg tablet Take 15 mg by mouth daily with dinner. - brimonidine (ALPHAGAN P) 0.15 % ophthalmic solution Use 1 Drop in the right eye twice daily. - timolol maleate (TIMOPTIC) 0.5 % ophthalmic solution Use 1 Drop in the right eye twice daily. - >Zippered Compression Knee High 30-40 mm custom CUSTOM MEASURE FOR KNEE HIGH ANGELO COMPRESSION STOCKINGS, 30-40 MM, WITH ZIPPERS PLEASE. IF UNABLE, PLEASE REFER TO BALA AT [facility]. DX: EDEMA - latanoprost (XALATAN) 0.005 % ophthalmic solution 1 Drop daily at bedtime. - TRAVATAN Z 0.004 % Drop daily at bedtime. - Cholecalciferol, Vitamin D3, 2,000 unit ORAL Cap Take one(1) tablet two(2) times daily. 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 Urgency of urination [R39.15] 02/20/2009 06/14/2020 Urge incontinence [N39.41] 02/20/2009 08/06/2016 Female stress incontinence [N39.3] 02/20/2009 08/06/2016 Nocturia [R35.1] 02/20/2009 08/06/2016 Symptomatic menopausal or female climacteric st*02/20/2009 08/06/2016 Postmenopausal atrophic vaginitis [N95.2] 02/20/2009 06/14/2020 Disorder of bone and cartilage, unspecified [M8*02/20/2009 03/24/2012 Osteoporosis with current pathological fracture*06/10/2010 Vitamin D deficiency [E55.9] 06/13/2010 Incisional hernia [K43.2] 12/14/2012 08/06/2016 Mixed hyperlipidemia [E78.2] 08/06/2016 Pedal edema [R60.0] 12/04/2016 Pulmonary hypertension (HCC) [I27.20] 05/07/2017 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 Normal [facility] Carbon dioxide, total [Moles /volume] in Central venous bloodOrdered By: Jake Kingston on 11-08-2024 CO2 [Moles/Vol] 22.7 mmol/L 21.0-32.0 [facility] Chloride assayOrdered By: Estefani Kingston on 11-08-2024 Chloride [Moles/Vol] 110 mmol/L High 98-108 [facility] Glomerular filtration rate ( GFR) estimation/1.73 sq m using serum, plasma, or whole bOrdered By: Jake Kingston on 11-08-2024 GFR/1.73 sq M.predicted among non-blacks MDRD (S/P/Bld) [Vol rate/Area] 39 mL/min/{1.73_m2} Low >60 [facility] Comment on above: mL/min/1.73m2 CKD-EP I Creatinine Equation (2020) Office Visit Reporton 2024 Office Visit Report Normal [facility] Potassium measurement (mass/ volume)Ordered By: Jake Kingston on 11-08-2024 Potassium (Unsp spec) [Mass/Vol] 3.6 mmol/L 3.3-5.1 [facility] Serum creatinine measurement (mass/volume)Ordered By: Jake Kingston on 11-08-2024 Creatinine [Mass/Vol] 1.31 mg/dL High 0.70-1.20 [facility] Serum glucose measurement (m ass/volume)Ordered By: Jake Kingston on 11-08-2024 Glucose [Mass/Vol] 111 mg/dL High 70-99 [facility] Serum or plasma calcium dex urement (mass/volume)Ordered By: Jake Kingston on 11-08-2024 Calcium [Mass/Vol] 9.3 mg/dL 7.6-11.0 [facility] Serum or plasma urea nitroge n measurement (mass/volume)Ordered By: Jake Kingston on 11-08-2024 Urea nitrogen [Mass/Vol] 17 mg/dL 4-19 [facility] Sodium levelOrdered By: Festus Kingston on 11-08-2024 Sodium [Moles/Vol] 142 mmol/L 133-145 [facility] CNPNon 11-07-2024 CNPN Telephone (INTMWS) REINIER ELIZABETH ([id number]) 1935 F NFR Date Time Provider Department 11/07/24 ANAY SCHULER INTMWS During your visit today, we recorded the following information about you: Brianne Toribio RN 11/07/2024 11:35 AM Signed Allyson DENNISON calling from [facility] to report plan of care for patient and SN will visit patient 2 times a week for two week and 1 times a week for two weeks. SN will work with patient on medication management and education on A-Fib, HTN, and HF. Brianne Toribio RN Allergies As of Date: 11/07/2024 Noted Allergy Reaction MACROBID (NITROFURANTOIN MONOHYD/*10/08/2024 5 - Intolerance Comments: N/V, shakey, diarrhea AMANTADINE 05/09/2005 2 - Rash CAPOTEN (CAPTOPRIL) 05/09/2005 2 - Rash CEPHALEXIN 05/09/2005 2 - Rash ERYTHROMYCIN 05/09/2005 2 - Rash HCTZ (THIAZIDES) 03/26/2015 14 - Other: See Comments Comments: leg cramps IVP DYE (IODINE) 05/12/2005 2 - Rash NORVASC (AMLODIPINE BESYLATE) 08/27/2017 7 - Swelling Date Reviewed: 10/21/2024 Reviewed by: Erika Kwan APRN.BILLING AND ACCOUNTING STAFF ASSISTANT - Fully Assessed Reason for Visit: [facility] SN POC [Other] Prescriptions as of 11/10/2024 - ondansetron (ZOFRAN) 4 mg tablet Take 1 tablet by mouth every 8 hours as needed for nausea/vomiting. - losartan (COZAAR) 50 mg tablet Take 1 tablet by mouth two times a day. - atorvastatin (LIPITOR) 20 mg tablet Take 1 tablet by mouth every 48 hours. - levothyroxine (LEVOXYL) 25 mcg tablet Take 1 tablet by mouth once daily. Take on empty stomach. For Thyroid - omeprazole (PRILOSEC) 40 mg capsule Take 1 capsule by mouth daily before breakfast. 1/2 hr before meal. - cyanocobalamin, vitamin B-12, (VITAMIN B12 ORAL) Take by mouth once daily. - denosumab (PROLIA SUBCUTANEOUS) Inject subcutaneously once every 6 months. - vibegron (GEMTESA) 75 mg tablet Take 1 tablet by mouth once daily. - hydrOXYzine HCl (ATARAX) 25 mg tablet Take 1 tablet by mouth every 4 hours as needed for itching/rash. - furosemide (LASIX) 20 mg tablet Take 1 tablet by mouth every other day. - ferrous sulfate 325 mg (65 mg iron) tablet Take 1 tablet by mouth once daily. - hydrALAZINE (APRESOLINE) 10 mg tablet Take 1 tablet by mouth four times daily. - carvedilol (COREG) 12.5 mg tablet Take 12.5 mg by mouth two times a day with meals. - potassium chloride (K-TAB) 10 mEq tablet Take 1 tablet by mouth twice daily. - Spirometers and Accessories magdalena Use 3 times a day, each time blow into it for 10 reps - XARELTO 15 mg tablet Take 15 mg by mouth daily with dinner. - brimonidine (ALPHAGAN P) 0.15 % ophthalmic solution Use 1 Drop in the right eye twice daily. - timolol maleate (TIMOPTIC) 0.5 % ophthalmic solution Use 1 Drop in the right eye twice daily. - >Zippered Compression Knee High 30-40 mm custom CUSTOM MEASURE FOR KNEE HIGH ANGELO COMPRESSION STOCKINGS, 30-40 MM, WITH ZIPPERS PLEASE. IF UNABLE, PLEASE REFER TO [facility] AT [facility]. DX: EDEMA - latanoprost (XALATAN) 0.005 % ophthalmic solution 1 Drop daily at bedtime. - TRAVATAN Z 0.004 % Drop daily at bedtime. - Cholecalciferol, Vitamin D3, 2,000 unit ORAL Cap Take one(1) tablet two(2) times daily. 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 Urgency of urination [R39.15] 02/20/2009 06/14/2020 Urge incontinence [N39.41] 02/20/2009 08/06/2016 Female stress incontinence [N39.3] 02/20/2009 08/06/2016 Nocturia [R35.1] 02/20/2009 08/06/2016 Symptomatic menopausal or female climacteric st*02/20/2009 08/06/2016 Postmenopausal atrophic vaginitis [N95.2] 02/20/2009 06/14/2020 Disorder of bone and cartilage, unspecified [M8*02/20/2009 03/24/2012 Osteoporosis with current pathological fracture*06/10/2010 Vitamin D deficiency [E55.9] 06/13/2010 Incisional hernia [K43.2] 12/14/2012 08/06/2016 Mixed hyperlipidemia [E78.2] 08/06/2016 Pedal edema [R60.0] 12/04/2016 Pulmonary hypertension (HCC) [I27.20] 05/07/2017 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 Normal [facility] CNPNon 11-03-2024 CNPN Telephone (INTMWS) REINIER ELIZABETH ([id number]) 1935 F NFR Date Time Provider Department 11/03/24 ANAY SCHULER INTMWS During your visit today, we recorded the following information about you: Brianne Toribio RN 11/03/2024 10:56 AM Signed Karen with [facility] HH calls to ask if provider would be willing to follow their HH orders for SN, PT, OT. Patient is discharging home today from [facility] PCU after being treated for A-fib and Renal Failure. Call back number is [phone]. JUMA Katz Joy, APRN.BILLING AND ACCOUNTING STAFF ASSISTANT 11/03/2024 1:35 PM Addendum Agree to follow and ok with orders. Patient also needs a hospital follow up. Thank you Silvio Drake APRN.[facility] Haydee Mccauley MA 11/03/2024 2:39 PM Signed Karen notified. Allergies As of Date: 11/03/2024 Noted Allergy Reaction MACROBID (NITROFURANTOIN MONOHYD/*10/08/2024 5 - Intolerance Comments: N/V, shakey, diarrhea AMANTADINE 05/09/2005 2 - Rash CAPOTEN (CAPTOPRIL) 05/09/2005 2 - Rash CEPHALEXIN 05/09/2005 2 - Rash ERYTHROMYCIN 05/09/2005 2 - Rash HCTZ (THIAZIDES) 03/26/2015 14 - Other: See Comments Comments: leg cramps IVP DYE (IODINE) 05/12/2005 2 - Rash NORVASC (AMLODIPINE BESYLATE) 08/27/2017 7 - Swelling Date Reviewed: 10/21/2024 Reviewed by: Erika Kwan APRN.BILLING AND ACCOUNTING STAFF ASSISTANT - Fully Assessed Reason for Visit: Orders [681] Prescriptions as of 11/04/2024 - ondansetron (ZOFRAN) 4 mg tablet Take 1 tablet by mouth every 8 hours as needed for nausea/vomiting. - losartan (COZAAR) 50 mg tablet Take 1 tablet by mouth two times a day. - atorvastatin (LIPITOR) 20 mg tablet Take 1 tablet by mouth every 48 hours. - levothyroxine (LEVOXYL) 25 mcg tablet Take 1 tablet by mouth once daily. Take on empty stomach. For Thyroid - omeprazole (PRILOSEC) 40 mg capsule Take 1 capsule by mouth daily before breakfast. 1/2 hr before meal. - cyanocobalamin, vitamin B-12, (VITAMIN B12 ORAL) Take by mouth once daily. - denosumab (PROLIA SUBCUTANEOUS) Inject subcutaneously once every 6 months. - vibegron (GEMTESA) 75 mg tablet Take 1 tablet by mouth once daily. - hydrOXYzine HCl (ATARAX) 25 mg tablet Take 1 tablet by mouth every 4 hours as needed for itching/rash. - furosemide (LASIX) 20 mg tablet Take 1 tablet by mouth every other day. - ferrous sulfate 325 mg (65 mg iron) tablet Take 1 tablet by mouth once daily. - hydrALAZINE (APRESOLINE) 10 mg tablet Take 1 tablet by mouth four times daily. - carvedilol (COREG) 12.5 mg tablet Take 12.5 mg by mouth two times a day with meals. - potassium chloride (K-TAB) 10 mEq tablet Take 1 tablet by mouth twice daily. - Spirometers and Accessories magdalena Use 3 times a day, each time blow into it for 10 reps - XARELTO 15 mg tablet Take 15 mg by mouth daily with dinner. - brimonidine (ALPHAGAN P) 0.15 % ophthalmic solution Use 1 Drop in the right eye twice daily. - timolol maleate (TIMOPTIC) 0.5 % ophthalmic solution Use 1 Drop in the right eye twice daily. - >Zippered Compression Knee High 30-40 mm custom CUSTOM MEASURE FOR KNEE HIGH ANGELO COMPRESSION STOCKINGS, 30-40 MM, WITH ZIPPERS PLEASE. IF UNABLE, PLEASE REFER TO [facility] AT [facility]. DX: EDEMA - latanoprost (XALATAN) 0.005 % ophthalmic solution 1 Drop daily at bedtime. - TRAVATAN Z 0.004 % Drop daily at bedtime. - Cholecalciferol, Vitamin D3, 2,000 unit ORAL Cap Take one(1) tablet two(2) times daily. 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 Urgency of urination [R39.15] 02/20/2009 06/14/2020 Urge incontinence [N39.41] 02/20/2009 08/06/2016 Female stress incontinence [N39.3] 02/20/2009 08/06/2016 Nocturia [R35.1] 02/20/2009 08/06/2016 Symptomatic menopausal or female climacteric st*02/20/2009 08/06/2016 Postmenopausal atrophic vaginitis [N95.2] 02/20/2009 06/14/2020 Disorder of bone and cartilage, unspecified [M8*02/20/2009 03/24/2012 Osteoporosis with current pathological fracture*06/10/2010 Vitamin D deficiency [E55.9] 06/13/2010 Incisional hernia [K43.2] 12/14/2012 08/06/2016 Mixed hyperlipidemia [E78.2] 08/06/2016 Pedal edema [R60.0] 12/04/2016 Pulmonary hypertension (HCC) [I27.20] 05/07/2017 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 [facility] Dis[facility] Instruction Normal [facility] Absolute lymphocyte countOrd ered By: Rory Trevizo on 11-02-2024 Lymphocytes Auto (Unsp spec) [#/Vol] 1.53 10*3/uL 0.83-4.51 [facility] Absolute neutrophil countOrd ered By: Rorydharmesh Trevizo on 11-02-2024 Neutrophils (Bld) [#/Vol] 4.0 10*3/uL 2.0-7.7 [facility] Anion gap in Serum or Plasma Ordered By: Rorydharmesh Trevizo on 11-02-2024 Anion gap [Moles/Vol] 10 mmol/L 5-15 [facility] Automated lymphocyte count a s percentage of total leukocytesOrdered By: Rory Trevizo on 11-02-2024 Lymphocytes/100 WBC Auto (Unsp spec) 23.9 % 19-41 [facility] BUN/creatinine ratioOrdered By: Rorybaldemar Trevizo on 11-02-2024 Urea nitrogen/Creatinine [Mass ratio] 16.4 mg/mg 10- [facility] Basic Metabolic Profile (BMP )on 11-02-2024 BUN/CRE 16.4 RATIO Normal - [facility] Comment on above: Performed By: #### L 100.0100, L500.2500 ####[facility] [address] [place], [address] Calcium [Mass/Vol] 9.0 mg/dL Normal 7.6-11.0 [facility] Comment on above: Performed By: #### L 100.0100, L500.2500 ####[facility] [address] [place], [address] Chloride [Moles/Vol] 111 mmol/L High 98-108 [facility] Comment on above: Performed By: #### L 100.0100, L500.2500 ####[facility] [address] [place], [address] CO2 [Moles/Vol] 17.1 mmol/L Low 21.0-32.0 [facility] Comment on above: Performed By: #### L 100.0100, L500.2500 ####[facility] [address] [place], [address] Creatinine [Mass/Vol] 2.35 mg/dL High 0.70-1.20 [facility] Comment on above: Performed By: #### L 100.0100, L500.2500 ####[facility] [address] [place], [address] ECRCL 15.36 ml/min Low 50-250 [facility] Comment on above: Performed By: #### L 100.0100, L500.2500 ####[facility] [address] [place], [address] GAP 10 Normal 5-15 [facility] Comment on above: Performed By: #### L 100.0100, L500.2500 ####[facility] [address] [place], [address] GFR/1.73 sq M.predicted among non-blacks MDRD (S/P/Bld) [Vol rate/Area] 20 mL/min/{1.73_m2} Low >60 [facility] Comment on above: Result Comment: mL/m in/1.73m2 CKD-EPI Creatinine Equation (2020) Performed By: #### L 100.0100, L500.2500 ####[facility] [address] [place], [address] Glucose [Mass/Vol] 97 mg/dL Normal 70-99 [facility] Comment on above: Performed By: #### L 100.0100, L500.2500 ####[facility] [address] [place], [address] Potassium [Moles/Vol] 4.5 mmol/L Normal 3.3-5.1 [facility] Comment on above: Result Comment: Hemo lysis present, Results??could be affected.?? Performed By: #### L 100.0100, L500.2500 ####[facility] [address] [place], [address] Sodium [Moles/Vol] 139 mmol/L Normal 133-145 [facility] Comment on above: Performed By: #### L 100.0100, L500.2500 ####[facility] [address] [place], [address] Urea nitrogen [Mass/Vol] 39 mg/dL High 4-19 [facility] Comment on above: Performed By: #### L 100.0100, L500.2500 ####[facility] [address] [place], [address] Basophil percentageOrdered B y: Rorydharmesh Trevizo on 11-02-2024 Basophils/100 WBC (Bld) 0.6 % 0-1 [facility] CBC W/Diff, Automatedon Absolute Lymph 1.53 X10 3/uL Normal 0.83-4.51 [facility] Comment on above: Performed By: #### L 100.0100, L500.2500 ####[facility] [address] [place], [address] Absolute Neut 4.0 X10 3/uL Normal 2.0-7.7 [facility] Comment on above: Performed By: #### L 100.0100, L500.2500 ####[facility] [address] [place], [address] Basophils/100 WBC (Bld) 0.6 % Normal 0-1 [facility] Comment on above: Performed By: #### L 100.0100, L500.2500 ####[facility] [address] [place], [address] Eosinophils/100 WBC (Bld) 4.4 % Normal 0-5 [facility] Comment on above: Performed By: #### L 100.0100, L500.2500 ####[facility] [address] [place], [address] Erythrocyte distribution width (RBC) [Ratio] 13.9 % Normal 11.6-14.6 [facility] Comment on above: Performed By: #### L 100.0100, L500.2500 ####[facility] [address] [place], [address] Hematocrit (Bld) [Volume fraction] 29.0 % Low 37-47 [facility] Comment on above: Performed By: #### L 100.0100, L500.2500 ####[facility] [address] [place], [address] Hemoglobin (Bld) [Mass/Vol] 9.5 g/dL Low 12.0-15.0 [facility] Comment on above: Performed By: #### L 100.0100, L500.2500 ####[facility] [address] [place], [address] IG% 0.200 Normal 0.0-0.9 [facility] Comment on above: Result Comment: IG% - Immature Granulocytes (promyelocytes, myelocytes andmetamyelocytes) > 1% indicates that a LEFT SHIFT is Present. Performed By: #### L 100.0100, L500.2500 ####[facility] [address] [place], [address] Lymphocytes/100 WBC (Bld) 23.9 % Normal 19-41 [facility] Comment on above: Performed By: #### L 100.0100, L500.2500 ####[facility] [address] [place], [address] MCH (RBC) [Entitic mass] 32.0 pg Normal 27.0-32.0 [facility] Comment on above: Performed By: #### L 100.0100, L500.2500 ####[facility] [address] [place], [address] MCHC (RBC) [Mass/Vol] 32.8 g/dL Normal 32-36 [facility] Comment on above: Performed By: #### L 100.0100, L500.2500 ####[facility] [address] [place], [address] MCV (RBC) [Entitic vol] 97.6 fL Normal 81-99 [facility] Comment on above: Performed By: #### L 100.0100, L500.2500 ####[facility] [address] [place], [address] Monocytes/100 WBC (Bld) 8.6 % Normal 0-10 [facility] Comment on above: Performed By: #### L 100.0100, L500.2500 ####[facility] [address] [place], [address] Neutrophils/100 WBC (Bld) 62.3 % Normal 47-70 [facility] Comment on above: Performed By: #### L 100.0100, L500.2500 ####[facility] [address] [place], [address] Nucleated RBC (Bld) [#/Vol] 0 10*3/uL Normal 0-5 [facility] Comment on above: Performed By: #### L 100.0100, L500.2500 ####[facility] [address] [place], [address] Platelet mean volume (Bld) [Entitic vol] 10.6 fL Normal 6.2-12.0 [facility] Comment on above: Performed By: #### L 100.0100, L500.2500 ####[facility] [address] [place], [address] Platelets (Bld) [#/Vol] 164 10*3/uL Normal 150-450 [facility] Comment on above: Performed By: #### L 100.0100, L500.2500 ####[facility] [address] [place], [address] RBC (Bld) [#/Vol] 2.97 10*6/uL Low 4.2-5.4 [facility] Comment on above: Performed By: #### L 100.0100, L500.2500 ####[facility] [address] [place], [address] RDW SD 48.3 fl High 35.1-43.9 [facility] Comment on above: Performed By: #### L 100.0100, L500.2500 ####[facility] [address] [place], [address] WBC (Bld) [#/Vol] 6.4 10*3/uL Normal 4.4-11.0 [facility] Comment on above: Performed By: #### L 100.0100, L500.2500 ####[facility] [address] [place], [address] Carbon dioxide, total [Moles /volume] in Central venous bloodOrdered By: Rory Trevizo on 11-02-2024 CO2 [Moles/Vol] 17.1 mmol/L Low 21.0-32.0 [facility] Chloride assayOrdered By: Shyann Trevizo on 11-02-2024 Chloride [Moles/Vol] 111 mmol/L High 98-108 [facility] Eosinophil percentageOrdered By: Rory Trevizo on 11-02-2024 Eosinophils/100 WBC (Bld) 4.4 % 0-5 [facility] Erythrocyte distribution wid th (RBC) [Ratio]Ordered By: Rory Trevizo on 11-02-2024 Erythrocyte distribution width (RBC) [Entitic vol] 48.3 fL High 35.1-43.9 [facility] Erythrocyte distribution wid th ratioOrdered By: Rory Trevizo on 11-02-2024 Erythrocyte distribution width (RBC) [Ratio] 13.9 % 11.6-14.6 [facility] Erythrocyte distribution wid th standard deviationOrdered By: Rory Trevizo on 11-02-2024 Erythrocyte distribution width (RBC) [Ratio] 48.3 fl High 35.1-43.9 [facility] Estimation of creatinine asael aranceOrdered By: Rory Trevizo on 11-02-2024 Estimated Creatinine Clearance Calc 15.36 ml/min Low 50-250 [facility] GFR/1.73 sq M.predicted jennifer g non-blacks MDRD (S/P/Bld) [Vol rate/Area]Ordered By: Rory Trevizo on 11-02-2024 Estimated GFR (MDRD) Non-Af Amer 20 Low >60 [facility] Comment on above: mL/min/1.73m2 CKD-EP I Creatinine Equation (2020) Glomerular filtration rate ( GFR) estimation/1.73 sq m using serum, plasma, or whole bOrdered By: Rory Trevizo on 11-02-2024 GFR/1.73 sq M.predicted among non-blacks MDRD (S/P/Bld) [Vol rate/Area] 20 mL/min/{1.73_m2} Low >60 [facility] Comment on above: mL/min/1.73m2 CKD-EP I Creatinine Equation (2020) Hematocrit Auto (Bld) [Volum e fraction]Ordered By: Rory Trevizo on 11-02-2024 Hematocrit (Bld) [Volume fraction] 29.0 % Low 37-47 [facility] Hemoglobin measurementOrdere d By: Rory Trevizo on 11-02-2024 Hemoglobin (Bld) [Mass/Vol] 9.5 g/dL Low 12.0-15.0 [facility] Immature granulocytes/100 WB C Auto (Bld)Ordered By: Rory Trevizo on 11-02-2024 Immature granulocytes/100 WBC (Bld) 0.200 % 0.0-0.9 [facility] Comment on above: IG% - Immature Granu locytes (promyelocytes, myelocytes and metamyelocytes) > 1% indicates that a LEFT SHIFT is Present. Lymphocytes Auto (Unsp spec) [#/Vol]Ordered By: Rory rTevizo on 11-02-2024 Lymphocytes (Bld) [#/Vol] 1.53 10*3/uL 0.83-4.51 [facility] Lymphocytes/100 WBC Auto (Un sp spec)Ordered By: Rory Trevizo on 11-02-2024 Lymphocytes/100 WBC (Bld) 23.9 % 19-41 [facility] MCV (mean corpuscular volume ) determinationOrdered By: Rory Trevizo on 11-02-2024 MCV (RBC) [Entitic vol] 97.6 fL 81-99 [facility] Mean corpuscular hemoglobin (MCH) determinationOrdered By: Rory Trevizo on 11-02-2024 MCH (RBC) [Entitic mass] 32.0 pg 27.0-32.0 [facility] Mean corpuscular hemoglobin concentration (MCHC) determinationOrdered By: Rory Trevizo on 11-02-2024 MCHC (RBC) [Mass/Vol] 32.8 g/dL 32-36 [facility] Mean platelet volume determi nationOrdered By: Rory Trevizo on 11-02-2024 Platelet mean volume (Bld) [Entitic vol] 10.6 fL 6.2-12.0 [facility] Monocyte percentageOrdered B y: Rory Trevizo on 11-02-2024 Monocytes/100 WBC (Bld) 8.6 % 0-10 [facility] Neutrophil percentageOrdered By: Rory Trevizo on 11-02-2024 Neutrophils/100 WBC (Bld) 62.3 % 47-70 [facility] Nucleated red blood cell per centageOrdered By: Rory Trevizo on 11-02-2024 Nucleated RBC/100 WBC (Bld) [Ratio] 0 % 0-5 [facility] Platelet countOrdered By: Shyann Trevizo on 11-02-2024 Platelets (Bld) [#/Vol] 164 10*3/uL 150-450 [facility] Potassium (Unsp spec) [Mass/ Vol]Ordered By: Rory Trevizo on 11-02-2024 Potassium [Moles/Vol] 4.5 mmol/L 3.3-5.1 [facility] Comment on above: Hemolysis present, R esults could be affected. Potassium measurement (mass/ volume)Ordered By: Rory Trevizo on 11-02-2024 Potassium (Unsp spec) [Mass/Vol] 4.5 mmol/L 3.3-5.1 [facility] Comment on above: Hemolysis present, R esults could be affected. RBC Auto (Bld) [#/Vol]Ordere d By: Rory Trevizo on 11-02-2024 RBC (Bld) [#/Vol] 2.97 10*6/uL Low 4.2-5.4 [facility] Serum creatinine measurement (mass/volume)Ordered By: Rory Trevizo on 11-02-2024 Creatinine [Mass/Vol] 2.35 mg/dL High 0.70-1.20 [facility] Serum glucose measurement (m ass/volume)Ordered By: Rory Trevizo on 11-02-2024 Glucose [Mass/Vol] 97 mg/dL 70-99 [facility] Serum or plasma calcium dex urement (mass/volume)Ordered By: Rory Trevizo on 11-02-2024 Calcium [Mass/Vol] 9.0 mg/dL 7.6-11.0 [facility] Serum or plasma urea nitroge n measurement (mass/volume)Ordered By: Rory Trevizo on 11-02-2024 Urea nitrogen [Mass/Vol] 39 mg/dL High 4-19 [facility] Sodium levelOrdered By: John Trevizo on 11-02-2024 Sodium [Moles/Vol] 139 mmol/L 133-145 [facility] White blood cell (WBC) count Ordered By: Rory Trevizo on 11-02-2024 WBC (Bld) [#/Vol] 6.4 10*3/uL 4.4-11.0 [facility] Basic Metabolic Profile (BMP )on 11-01-2024 BUN/CRE 16.7 RATIO Normal 10-20 [facility] Comment on above: Performed By: #### L 100.0100, L500.2500 ####[facility] [address] [place], [place], [id number] Calcium [Mass/Vol] 9.2 mg/dL Normal 7.6-11.0 [facility] Comment on above: Performed By: #### L 100.0100, L500.2500 ####[facility] [address] [place], [address] Chloride [Moles/Vol] 112 mmol/L High 98-108 [facility] Comment on above: Performed By: #### L 100.0100, L500.2500 ####[facility] [address] [place], [address] CO2 [Moles/Vol] 15.1 mmol/L Low 21.0-32.0 [facility] Comment on above: Performed By: #### L 100.0100, L500.2500 ####[facility] [address] [place], [address] Creatinine [Mass/Vol] 2.09 mg/dL High 0.70-1.20 [facility] Comment on above: Performed By: #### L 100.0100, L500.2500 ####[facility] [address] [place], [address] ECRCL 17.25 ml/min Low 50-250 [facility] Comment on above: Performed By: #### L 100.0100, L500.2500 ####[facility] [address] [place], [address] GAP 12 Normal 5-15 [facility] Comment on above: Performed By: #### L 100.0100, L500.2500 ####[facility] [address] [place], [address] GFR/1.73 sq M.predicted among non-blacks MDRD (S/P/Bld) [Vol rate/Area] 23 mL/min/{1.73_m2} Low >60 [facility] Comment on above: Result Comment: mL/m in/1.73m2 CKD-EPI Creatinine Equation (2020) Performed By: #### L 100.0100, L500.2500 ####[facility] [address] [place], [address] Glucose [Mass/Vol] 101 mg/dL High 70-99 [facility] Comment on above: Performed By: #### L 100.0100, L500.2500 ####[facility] [address] [place], [address] Potassium [Moles/Vol] 4.4 mmol/L Normal 3.3-5.1 [facility] Comment on above: Performed By: #### L 100.0100, L500.2500 ####[facility] [address] [place], [address] Sodium [Moles/Vol] 139 mmol/L Normal 133-145 [facility] Comment on above: Performed By: #### L 100.0100, L500.2500 ####[facility] [address] [place], [address] Urea nitrogen [Mass/Vol] 35 mg/dL High 4-19 [facility] Comment on above: Performed By: #### L 100.0100, L500.2500 ####[facility] [address] [place], [address] CBC W/Diff, Automatedon 05-0 6-2025 Absolute Lymph 1.57 X10 3/uL Normal 0.83-4.51 [facility] Comment on above: Performed By: #### L 100.0100, L500.2500 ####[facility] [address] [place], [address] Absolute Neut 3.8 X10 3/uL Normal 2.0-7.7 [facility] Comment on above: Performed By: #### L 100.0100, L500.2500 ####[facility] [address] [place], [address] Basophils/100 WBC (Bld) 0.3 % Normal 0-1 [facility] Comment on above: Performed By: #### L 100.0100, L500.2500 ####[facility] [address] [place], [address] Eosinophils/100 WBC (Bld) 3.5 % Normal 0-5 [facility] Comment on above: Performed By: #### L 100.0100, L500.2500 ####[facility] [address] [place], [address] Erythrocyte distribution width (RBC) [Ratio] 14.0 % Normal 11.6-14.6 [facility] Comment on above: Performed By: #### L 100.0100, L500.2500 ####[facility] [address] [place], [address] Hematocrit (Bld) [Volume fraction] 29.8 % Low 37-47 [facility] Comment on above: Performed By: #### L 100.0100, L500.2500 ####[facility] [address] [place], [address] Hemoglobin (Bld) [Mass/Vol] 9.5 g/dL Low 12.0-15.0 [facility] Comment on above: Performed By: #### L 100.0100, L500.2500 ####[facility] [address] [place], [address] IG% 0.300 Normal 0.0-0.9 [facility] Comment on above: Result Comment: IG% - Immature Granulocytes (promyelocytes, myelocytes andmetamyelocytes) > 1% indicates that a LEFT SHIFT is Present. Performed By: #### L 100.0100, L500.2500 ####[facility] [address] [place], [address] Lymphocytes/100 WBC (Bld) 25.2 % Normal 19-41 [facility] Comment on above: Performed By: #### L 100.0100, L500.2500 ####[facility] [address] [place], [address] MCH (RBC) [Entitic mass] 31.5 pg Normal 27.0-32.0 [facility] Comment on above: Performed By: #### L 100.0100, L500.2500 ####[facility] [address] [place], [address] MCHC (RBC) [Mass/Vol] 31.9 g/dL Low 32-36 [facility] Comment on above: Performed By: #### L 100.0100, L500.2500 ####[facility] [address] [place], [address] MCV (RBC) [Entitic vol] 98.7 fL Normal 81-99 [facility] Comment on above: Performed By: #### L 100.0100, L500.2500 ####[facility] [address] [place], [address] Monocytes/100 WBC (Bld) 9.5 % Normal 0-10 [facility] Comment on above: Performed By: #### L 100.0100, L500.2500 ####[facility] [address] [place], [address] Neutrophils/100 WBC (Bld) 61.2 % Normal 47-70 [facility] Comment on above: Performed By: #### L 100.0100, L500.2500 ####[facility] [address] [place], [address] Nucleated RBC (Bld) [#/Vol] 0.3 10*3/uL Normal 0-5 [facility] Comment on above: Performed By: #### L 100.0100, L500.2500 ####[facility] [address] [place], [address] Platelet mean volume (Bld) [Entitic vol] 10.8 fL Normal 6.2-12.0 [facility] Comment on above: Performed By: #### L 100.0100, L500.2500 ####[facility] [address] [place], [address] Platelets (Bld) [#/Vol] 171 10*3/uL Normal 150-450 [facility] Comment on above: Performed By: #### L 100.0100, L500.2500 ####[facility] [address] [place], [address] RBC (Bld) [#/Vol] 3.02 10*6/uL Low 4.2-5.4 [facility] Comment on above: Performed By: #### L 100.0100, L500.2500 ####[facility] [address] [place], [address] RDW SD 48.7 fl High 35.1-43.9 [facility] Comment on above: Performed By: #### L 100.0100, L500.2500 ####[facility] [address] [place], [address] WBC (Bld) [#/Vol] 6.2 10*3/uL Normal 4.4-11.0 [facility] Comment on above: Performed By: #### L 100.0100, L500.2500 ####[facility] [address] [place], [address] Arterial study reportOrdered By: Schuyler Rosen on 10-31-2024 Noninvasive arteriosclerosis study report [facility] Other Phone: Basic Metabolic Profile (BMP )on 10-31-2024 BUN/CRE 17.6 RATIO Normal 10-20 [facility] Comment on above: Performed By: #### L 500.2500, L100.0100 ####[facility] [address] [place], [address] Calcium [Mass/Vol] 8.7 mg/dL Normal 7.6-11.0 [facility] Comment on above: Performed By: #### L 500.2500, L100.0100 ####[facility] [address] [place], [address] Chloride [Moles/Vol] 110 mmol/L High 98-108 [facility] Comment on above: Performed By: #### L 500.2500, L100.0100 ####[facility] [address] [place], [address] CO2 [Moles/Vol] 14.5 mmol/L Low 21.0-32.0 [facility] Comment on above: Performed By: #### L 500.2500, L100.0100 ####[facility] [address] [place], [address] Creatinine [Mass/Vol] 2.14 mg/dL High 0.70-1.20 [facility] Comment on above: Performed By: #### L 500.2500, L100.0100 ####[facility] [address] [place], [address] ECRCL 16.46 ml/min Low 50-250 [facility] Comment on above: Performed By: #### L 500.2500, L100.0100 ####[facility] [address] [place], [address] GAP 12 Normal 5-15 [facility] Comment on above: Performed By: #### L 500.2500, L100.0100 ####[facility] [address] [place], [address] GFR/1.73 sq M.predicted among non-blacks MDRD (S/P/Bld) [Vol rate/Area] 22 mL/min/{1.73_m2} Low >60 [facility] Comment on above: Result Comment: mL/m in/1.73m2 CKD-EPI Creatinine Equation (2020) Performed By: #### L 500.2500, L100.0100 ####[facility] [address] [place], [address] Glucose [Mass/Vol] 104 mg/dL High 70-99 [facility] Comment on above: Performed By: #### L 500.2500, L100.0100 ####[facility] [address] [place], [address] Potassium [Moles/Vol] 4.2 mmol/L Normal 3.3-5.1 [facility] Comment on above: Performed By: #### L 500.2500, L100.0100 ####[facility] [address] [place], [address] Sodium [Moles/Vol] 136 mmol/L Normal 133-145 [facility] Comment on above: Performed By: #### L 500.2500, L100.0100 ####[facility] [address] [place], [address] Urea nitrogen [Mass/Vol] 38 mg/dL High 4-19 [facility] Comment on above: Performed By: #### L 500.2500, L100.0100 ####[facility] [address] [place], [address] CBC W/Diff, Automatedon 05-0 -2024 Absolute Lymph 1.64 X10 3/uL Normal 0.83-4.51 [facility] Comment on above: Performed By: #### L 500.2500, L100.0100 ####[facility] [address] [place], [address] Absolute Neut 4.1 X10 3/uL Normal 2.0-7.7 [facility] Comment on above: Performed By: #### L 500.2500, L100.0100 ####[facility] [address] [place], [address] Basophils/100 WBC (Bld) 0.8 % Normal 0-1 [facility] Comment on above: Performed By: #### L 500.2500, L100.0100 ####[facility] [address] [place], [address] Eosinophils/100 WBC (Bld) 2.3 % Normal 0-5 [facility] Comment on above: Performed By: #### L 500.2500, L100.0100 ####[facility] [address] [place], [address] Erythrocyte distribution width (RBC) [Ratio] 13.6 % Normal 11.6-14.6 [facility] Comment on above: Performed By: #### L 500.2500, L100.0100 ####[facility] [address] [place], [address] Hematocrit (Bld) [Volume fraction] 32.3 % Low 37-47 [facility] Comment on above: Performed By: #### L 500.2500, L100.0100 ####[facility] [address] [place], [address] Hemoglobin (Bld) [Mass/Vol] 10.2 g/dL Low 12.0-15.0 [facility] Comment on above: Performed By: #### L 500.2500, L100.0100 ####[facility] [address] [place], [address] IG% 0.500 Normal 0.0-0.9 [facility] Comment on above: Result Comment: IG% - Immature Granulocytes (promyelocytes, myelocytes andmetamyelocytes) > 1% indicates that a LEFT SHIFT is Present. Performed By: #### L 500.2500, L100.0100 ####[facility] [address] [place], [address] Lymphocytes/100 WBC (Bld) 24.8 % Normal 19-41 [facility] Comment on above: Performed By: #### L 500.2500, L100.0100 ####[facility] [address] [place], [address] MCH (RBC) [Entitic mass] 31.5 pg Normal 27.0-32.0 [facility] Comment on above: Performed By: #### L 500.2500, L100.0100 ####[facility] [address] [place], [address] MCHC (RBC) [Mass/Vol] 31.6 g/dL Low 32-36 [facility] Comment on above: Performed By: #### L 500.2500, L100.0100 ####[facility] [address] [place], [address] MCV (RBC) [Entitic vol] 99.7 fL High 81-99 [facility] Comment on above: Performed By: #### L 500.2500, L100.0100 ####[facility] [address] [place], [address] Monocytes/100 WBC (Bld) 9.1 % Normal 0-10 [facility] Comment on above: Performed By: #### L 500.2500, L100.0100 ####[facility] [address] [place], [address] Neutrophils/100 WBC (Bld) 62.5 % Normal 47-70 [facility] Comment on above: Performed By: #### L 500.2500, L100.0100 ####[facility] [address] [place], [address] Nucleated RBC (Bld) [#/Vol] 0 10*3/uL Normal 0-5 [facility] Comment on above: Performed By: #### L 500.2500, L100.0100 ####[facility] [address] [place], [address] Platelet mean volume (Bld) [Entitic vol] 11.1 fL Normal 6.2-12.0 [facility] Comment on above: Performed By: #### L 500.2500, L100.0100 ####[facility] [address] [place], [address] Platelets (Bld) [#/Vol] 168 10*3/uL Normal 150-450 [facility] Comment on above: Performed By: #### L 500.2500, L100.0100 ####[facility] [address] [place], [address] RBC (Bld) [#/Vol] 3.24 10*6/uL Low 4.2-5.4 [facility] Comment on above: Performed By: #### L 500.2500, L100.0100 ####[facility] [address] [place], [address] RDW SD 48.1 fl High 35.1-43.9 [facility] Comment on above: Performed By: #### L 500.2500, L100.0100 ####[facility] [address] [place], [address] WBC (Bld) [#/Vol] 6.6 10*3/uL Normal 4.4-11.0 [facility] Comment on above: Performed By: #### L 500.2500, L100.0100 ####[facility] [address] [place], [address] Consultation - Cardiologyon 10-31-2024 Consultation - Cardiology Normal [facility] Echo Limited w/Contraston Echo Limited w/Contrast Normal [facility] Limited echocardiogram repor tOrdered By: Talia David on 10-31-2024 Study report [facility] Work Phone: Lower Ext Art Exam w/o Exerc leonor 10-31-2024 Lower Ext Art Exam w/o Exercis Normal [facility] 12 Lead EKGon 10-30-2024 12 Lead EKG Normal [facility] Basic Metabolic Profile (BMP )on 10-30-2024 BUN/CRE 17.7 RATIO Normal 10-20 [facility] Comment on above: Performed By: #### L 500.2500, L100.0100, L503.7505 ####[facility] [address] [place], [address] Calcium [Mass/Vol] 9.1 mg/dL Normal 7.6-11.0 [facility] Comment on above: Performed By: #### L 500.2500, L100.0100, L503.7505 ####[facility] [address] [place], [address] Chloride [Moles/Vol] 109 mmol/L High 98-108 [facility] Comment on above: Performed By: #### L 500.2500, L100.0100, L503.7505 ####[facility] [address] [place], [address] CO2 [Moles/Vol] 17.5 mmol/L Low 21.0-32.0 [facility] Comment on above: Performed By: #### L 500.2500, L100.0100, L503.7505 ####[facility] [address] [place], [address] Creatinine [Mass/Vol] 2.27 mg/dL High 0.70-1.20 [facility] Comment on above: Performed By: #### L 500.2500, L100.0100, L503.7505 ####[facility] [address] [place], [address] ECRCL 15.50 ml/min Low 50-250 [facility] Comment on above: Performed By: #### L 500.2500, L100.0100, L503.7505 ####[facility] [address] [place], [address] GAP 10 Normal 5-15 [facility] Comment on above: Performed By: #### L 500.2500, L100.0100, L503.7505 ####[facility] [address] [place], [address] GFR/1.73 sq M.predicted among non-blacks MDRD (S/P/Bld) [Vol rate/Area] 20 mL/min/{1.73_m2} Low >60 [facility] Comment on above: Result Comment: mL/m in/1.73m2 CKD-EPI Creatinine Equation (2020) Performed By: #### L 500.2500, L100.0100, L503.7505 ####[facility] [address] [place], [address] Glucose [Mass/Vol] 118 mg/dL High 70-99 [facility] Comment on above: Performed By: #### L 500.2500, L100.0100, L503.7505 ####[facility] [address] [place], [address] Potassium [Moles/Vol] 5.0 mmol/L Normal 3.3-5.1 [facility] Comment on above: Result Comment: Hemo lysis present, Results??could be affected.?? Performed By: #### L 500.2500, L100.0100, L503.7505 ####[facility] [address] [place], [address] Sodium [Moles/Vol] 137 mmol/L Normal 133-145 [facility] Comment on above: Performed By: #### L 500.2500, L100.0100, L503.7505 ####[facility] [address] [place], [address] Urea nitrogen [Mass/Vol] 40 mg/dL High 4-19 [facility] Comment on above: Performed By: #### L 500.2500, L100.0100, L503.7505 ####[facility] [address] [place], [address] Bilirubin Test strip Ql (U)O rdered By: Jose Mcgraw on 10-30-2024 Bilirubin Ql (U) Negative Negative [facility] CBC W/Diff, Automatedon Absolute Lymph 1.47 X10 3/uL Normal 0.83-4.51 [facility] Comment on above: Performed By: #### L 500.2500, L100.0100, L503.7505 ####[facility] [address] [place], [address] Absolute Neut 5.7 X10 3/uL Normal 2.0-7.7 [facility] Comment on above: Performed By: #### L 500.2500, L100.0100, L503.7505 ####[facility] [address] [place], [address] Basophils/100 WBC (Bld) 0.6 % Normal 0-1 [facility] Comment on above: Performed By: #### L 500.2500, L100.0100, L503.7505 ####[facility] [address] [place], [address] Eosinophils/100 WBC (Bld) 1.4 % Normal 0-5 [facility] Comment on above: Performed By: #### L 500.2500, L100.0100, L503.7505 ####[facility] [address] [place], [address] Erythrocyte distribution width (RBC) [Ratio] 13.6 % Normal 11.6-14.6 [facility] Comment on above: Performed By: #### L 500.2500, L100.0100, L503.7505 ####[facility] [address] [place], [address] Hematocrit (Bld) [Volume fraction] 35.6 % Low 37-47 [facility] Comment on above: Performed By: #### L 500.2500, L100.0100, L503.7505 ####[facility] [address] [place], [address] Hemoglobin (Bld) [Mass/Vol] 11.5 g/dL Low 12.0-15.0 [facility] Comment on above: Performed By: #### L 500.2500, L100.0100, L503.7505 ####[facility] [address] [place], [address] IG% 0.500 Normal 0.0-0.9 [facility] Comment on above: Result Comment: IG% - Immature Granulocytes (promyelocytes, myelocytes andmetamyelocytes) > 1% indicates that a LEFT SHIFT is Present. Performed By: #### L 500.2500, L100.0100, L503.7505 ####[facility] [address] [place], [address] Lymphocytes/100 WBC (Bld) 18.5 % Low 19-41 [facility] Comment on above: Performed By: #### L 500.2500, L100.0100, L503.7505 ####[facility] [address] [place], [address] MCH (RBC) [Entitic mass] 31.7 pg Normal 27.0-32.0 [facility] Comment on above: Performed By: #### L 500.2500, L100.0100, L503.7505 ####[facility] [address] [place], [address] MCHC (RBC) [Mass/Vol] 32.3 g/dL Normal 32-36 [facility] Comment on above: Performed By: #### L 500.2500, L100.0100, L503.7505 ####[facility] [address] [place], [address] MCV (RBC) [Entitic vol] 98.1 fL Normal 81-99 [facility] Comment on above: Performed By: #### L 500.2500, L100.0100, L503.7505 ####[facility] [address] [place], [address] Monocytes/100 WBC (Bld) 6.7 % Normal 0-10 [facility] Comment on above: Performed By: #### L 500.2500, L100.0100, L503.7505 ####[facility] [address] [place], [address] Neutrophils/100 WBC (Bld) 72.3 % High 47-70 [facility] Comment on above: Performed By: #### L 500.2500, L100.0100, L503.7505 ####[facility] [address] [place], [address] Nucleated RBC (Bld) [#/Vol] 0.3 10*3/uL Normal 0-5 [facility] Comment on above: Performed By: #### L 500.2500, L100.0100, L503.7505 ####[facility] [address] [place], [address] Platelet mean volume (Bld) [Entitic vol] 11.6 fL Normal 6.2-12.0 [facility] Comment on above: Performed By: #### L 500.2500, L100.0100, L503.7505 ####[facility] [address] [place], [address] Platelets (Bld) [#/Vol] 229 10*3/uL Normal 150-450 [facility] Comment on above: Performed By: #### L 500.2500, L100.0100, L503.7505 ####[facility] [address] [place], [address] RBC (Bld) [#/Vol] 3.63 10*6/uL Low 4.2-5.4 [facility] Comment on above: Performed By: #### L 500.2500, L100.0100, L503.7505 ####[facility] [address] [place], [address] RDW SD 48.1 fl High 35.1-43.9 [facility] Comment on above: Performed By: #### L 500.2500, L100.0100, L503.7505 ####[facility] [address] [place], [address] WBC (Bld) [#/Vol] 7.9 10*3/uL Normal 4.4-11.0 [facility] Comment on above: Performed By: #### L 500.2500, L100.0100, L503.7505 ####[facility] [address] [place], [address] Chest 1 View (Portable)on Chest 1 View (Portable) Normal [facility] Emergency Department Summary on 10-30-2024 Emergency Department Summary Normal [facility] Epithelial cells.squamous LM Ql (Urine sed)Ordered By: Jose Mcgraw on 10-30-2024 Epithelial cells.squamous LM.HPF (Urine sed) [#/Area] 0 /[HPF] 5-10 [facility] Glucose Ql (U)Ordered By: Antoinette Mcgraw on 10-30-2024 Urine Glucose (UA) Normal mg/dl Normal [facility] H AND P Exam - Hospitaliston 10-30-2024 H&P Exam - Hospitalist Normal [facility] Hyaline casts LM.LPF (Urine sed) [#/Area]Ordered By: Jose Mcgraw on 10-30-2024 Hyaline casts (Urine sed) [#/Area] 0 /[LPF] 0-5 [facility] Hyaline casts LM Ql (Urine sed) 0-5 SEEN /lpf 0-5 [facility] Influenza virus A and B and SARS-CoV-2 (COVID-19) and Respiratory syncytial virus RNAOrdered By: Jose Mcgraw on 10-30-2024 SARS-CoV-2 (COVID-19) RNA GUERA+probe Ql (Unsp spec) [facility] [facility] Ketones Test strip Ql (U)Ord ered By: Jose Mcgraw on 10-30-2024 Ketones Ql (U) Negative Negative [facility] L499.0042on 10-30-2024 Trop T High Sen 50 ng/L High <=14 [facility] Comment on above: Performed By: #### L 499.0042 ####[facility] [address] [place], [address] L499.0043on 10-30-2024 Trop T High Sen 43 ng/L High <=14 [facility] Comment on above: Performed By: #### L 499.0043 ####[facility] [address] [place], [address] L501.4021on 10-30-2024 Trop T High Sen 45 ng/L High <=14 [facility] Comment on above: Performed By: #### L 501.4021 ####[facility] [address] [place], [address] L503.7505on 10-30-2024 Natriuretic peptide B (Bld) [Mass/Vol] 88266 pg/mL High <=1800 [facility] Comment on above: Result Comment: Hear t Failure Unlikely: < 300 pg/mLHeart Failure Likely< 50 Years: > 450 pg/mL50-75 Years: > 900 pg/mL>75 Years: > 1800 pg/mL Performed By: #### L 500.2500, L100.0100, L503.7505 ####[facility] [address] [place], [address] M100.678on 10-30-2024 M100.678 Pending SARS-CoV-2 (COVID 19) Negative INFLUENZA A Negative INFLUENZA B Negative RSV PCR Negative Normal [facility] Comment on above: Performed By: #### L 501.1930, L400.0001, M100.678 ####[facility] [address] [place], [place], [id number] Microscopic analysis of urin e for red blood cells (RBC)Ordered By: Jose Mcgraw on 10-30-2024 Microscopic analysis of urine for red blood cells (RBC) 0 SEEN /hpf 0-5 [facility] Urine RBC 0 SEEN /hpf 0-5 [facility] Mucus LM Ql (Urine sed)Order ed By: Jose Mcgraw on 10-30-2024 Mucus Ql (Urine sed) RARE /hpf [facility] Natriuretic peptide.B prohor jose d N-Terminal [Mass/Vol]Ordered By: Jose Mcgraw on 10-30-2024 Natriuretic peptide B (Bld) [Mass/Vol] 36670 pg/mL High <1800 [facility] Comment on above: Heart Failure Unlike ly: < 300 pg/mLHeart Failure Likely< 50 Years: > 450 pg/mL50-75 Years: > 900 pg/mL>75 Years: > 1800 pg/mL Natriuretic peptide.B prohor jose d N-Terminal [Mass/volume] in Serum or PlasmaOrdered By: Jose Mcgraw on 10-30-2024 Natriuretic peptide.B prohormone N-Terminal [Mass/Vol] 63074 pg/mL High <1800 [facility] Comment on above: Heart Failure Unlike ly: < 300 pg/mLHeart Failure Likely< 50 Years: > 450 pg/mL50-75 Years: > 900 pg/mL>75 Years: > 1800 pg/mL Nitrite Test strip Ql (U)Ord ered By: Jose Mcgraw on 10-30-2024 Nitrite Ql (U) Negative Negative [facility] Protein Test strip Ql (U)Ord ered By: Jose Mcgraw on 10-30-2024 Protein Ql (U) 30 mg/dl High Negative [facility] Protein, Urine (Random)on Protein (U) [Mass/Vol] 41.2 mg/dL High 0.0-12.0 [facility] Comment on above: Performed By: #### L 501.1930, L400.0001, M100.678 ####[facility] [address] [place], [address] Squamous epithelial cells de tection in urine sediment by light microscopyOrdered By: Jose Mcgraw on 10-30-2024 Epithelial cells.squamous LM Ql (Urine sed) 0-5 SEEN /hpf 5-10 [facility] Troponin T.cardiac High sens itivity method [Mass/Vol]Ordered By: Jose Mcgraw on 10-30-2024 Troponin T High Sensitivity 4 Hour 43 ng/L High <14 [facility] Troponin T High Sensitivity 2 Hour 50 ng/L High <14 [facility] Troponin T High Sensitivity 45 ng/L High <14 [facility] Comment on above: Delta: 82 [place] [address] Troponin T.cardiac [Mass/vol ume] in Serum or Plasma by High sensitivity methodOrdered By: Jose Mcgraw on 10-30-2024 Troponin T.cardiac High sensitivity method [Mass/Vol] 43 ng/L High <14 [facility] Troponin T.cardiac High sensitivity method [Mass/Vol] 50 ng/L High <14 [facility] Troponin T.cardiac High sensitivity method [Mass/Vol] 45 ng/L High <14 [facility] Comment on above: Delta: 82 on 5-1130 Type AND Screenon 10-30-2024 Ab SCREEN GEL Negative Normal [facility] Comment on above: Order Comment: A Performed By: #### B TS ####[facility] [address] [place], [address] Urinalysis, Completeon 10-30 CAST,HYALINE 0-5 SEEN Normal 0-5 [facility] Comment on above: Order Comment: COLLE CTOR TO SPECIFY Performed By: #### L 501.1930, L400.0001, M100.678 ####[facility] [address] [place], [address] Mucus Ql (Urine sed) RARE Normal [facility] Comment on above: Order Comment: COLLE CTOR TO SPECIFY Performed By: #### L 501.1930, L400.0001, M100.678 ####[facility] [address] [place], [address] BACTERIA 3+ /hpf Normal None Seen [facility] Comment on above: Order Comment: COLLE CTOR TO SPECIFY Performed By: #### L 501.1930, L400.0001, M100.678 ####[facility] [address] [place], [address] EPI,SQUAMOUS 0-5 SEEN Normal 5-10 [facility] Comment on above: Order Comment: QUOC CTOR TO SPECIFY Performed By: #### L 501.1930, L400.0001, M100.678 ####[facility] [address] [place], [address] WBC 5-10 SEEN Normal 0-5 [facility] Comment on above: Order Comment: COLLE CTOR TO SPECIFY Performed By: #### L 501.1930, L400.0001, M100.678 ####[facility] [address] [place], [address] RBC 0 SEEN Normal 0-5 [facility] Comment on above: Order Comment: COLLE CTOR TO SPECIFY Performed By: #### L 501.1930, L400.0001, M100.678 ####[facility] [address] [place], [address] Urine blood detectionOrdered By: Jose Mcgraw on 10-30-2024 Urine Occult Blood Negative Negative [facility] Urine clarityOrdered By: Lizeth Mcgraw on 10-30-2024 Clarity (U) Clear Clear [facility] Urine color determinationOrd ered By: Jose Mcgraw on 10-30-2024 Color (U) Yellow Yellow [facility] Urine glucose detectionOrder ed By: Jose Mcgraw on 10-30-2024 Glucose Ql (U) Normal mg/dl Normal [facility] Urine leukocyte esterase det ection by dipstickOrdered By: Jose Mcgraw on 10-30-2024 Leukocyte esterase Test strip Ql (U) 100 /ul High Negative [facility] Urine pHOrdered By: Jose deleon on 10-30-2024 pH (U) 6.0 [pH] 5.0 - 8.0 [facility] Urine protein measurement (m ass/volume)Ordered By: Jose Mcgraw on 10-30-2024 Protein (U) [Mass/Vol] 41.2 mg/dL High 0.0-12.0 [facility] Urine sediment bacteria coun t by microscopy (number/high power field)Ordered By: Jose Mcgraw on 10-30-2024 Bacteria LM.HPF (Urine sed) [#/Area] 3 /[HPF] None Seen [facility] Urine specific gravity measu rementOrdered By: Jose Mcgraw on 10-30-2024 Specific gravity (U) [Rel density] 1.020 1.002-1.030 [facility] Urine urobilinogen measureme ntOrdered By: Jose Mcgraw on 10-30-2024 Urobilinogen Ql (U) Normal mg/dl Normal [facility] Urobilinogen Ql (U)Ordered B y: Jose Mcgraw on 10-30-2024 Urine Urobilinogen Normal mg/dl Normal [facility] White blood cell countOrdere d By: Jose Mcgraw on 10-30-2024 Urine WBC 5-10 SEEN /hpf 0-5 [facility] White blood cell count 5-10 SEEN /hpf 0-5 [facility] 12 Lead EKG performed by [facility] on 10-24-2024 12 Lead EKG performed by [facility] Normal [facility] Absolute lymphocyte countOrd ered By: Ning Spencer on 10-24-2024 Lymphocytes Auto (Unsp spec) [#/Vol] 1.66 10*3/uL 0.83-4.51 [facility] Absolute neutrophil countOrd ered By: Ning Spencer on 10-24-2024 Neutrophils (Bld) [#/Vol] 3.7 10*3/uL 2.0-7.7 [facility] Anion gap in Serum or Plasma Ordered By: Ning Spencer on 10-24-2024 Anion gap [Moles/Vol] 11 mmol/L 5- [facility] Automated lymphocyte count a s percentage of total leukocytesOrdered By: Ning Spencer on 10-24-2024 Lymphocytes/100 WBC Auto (Unsp spec) 28.0 % [facility] BUN/creatinine ratioOrdered By: Ning Spencer on 10-24-2024 Urea nitrogen/Creatinine [Mass ratio] 19.2 mg/mg - [facility] Basic Metabolic Profile (BMP )on 10-24-2024 BUN/CRE 19.2 RATIO Normal - [facility] Comment on above: Performed By: #### L 500.2500, L100.0100 ####[facility] [address] [place], [address] Calcium [Mass/Vol] 9.2 mg/dL Normal 7.6-11.0 [facility] Comment on above: Performed By: #### L 500.2500, L100.0100 ####[facility] [address] [place], [address] Chloride [Moles/Vol] 106 mmol/L Normal 98-108 [facility] Comment on above: Performed By: #### L 500.2500, L100.0100 ####[facility] [address] [place], [address] CO2 [Moles/Vol] 19.4 mmol/L Low 21.0-32.0 [facility] Comment on above: Performed By: #### L 500.2500, L100.0100 ####[facility] [address] [place], [address] Creatinine [Mass/Vol] 2.03 mg/dL High 0.70-1.20 [facility] Comment on above: Performed By: #### L 500.2500, L100.0100 ####[facility] [address] [place], [address] GAP 11 Normal - [facility] Comment on above: Performed By: #### L 500.2500, L100.0100 ####[facility] [address] [place], [address] GFR/1.73 sq M.predicted among non-blacks MDRD (S/P/Bld) [Vol rate/Area] 23 mL/min/{1.73_m2} Low >60 [facility] Comment on above: Result Comment: mL/m in/1.73m2 CKD-EPI Creatinine Equation (2020) Performed By: #### L 500.2500, L100.0100 ####[facility] [address] [place], [address] Glucose [Mass/Vol] 109 mg/dL High 70-99 [facility] Comment on above: Performed By: #### L 500.2500, L100.0100 ####[facility] [address] [place], [address] Potassium [Moles/Vol] 4.9 mmol/L Normal 3.3-5.1 [facility] Comment on above: Performed By: #### L 500.2500, L100.0100 ####[facility] [address] [place], [address] Sodium [Moles/Vol] 137 mmol/L Normal 133-145 [facility] Comment on above: Performed By: #### L 500.2500, L100.0100 ####[facility] [address] [place], [address] Urea nitrogen [Mass/Vol] 39 mg/dL High 4-19 [facility] Comment on above: Performed By: #### L 500.2500, L100.0100 ####[facility] [address] [place], [address] Basophil percentageOrdered B y: Ning Spencer on 10-24-2024 Basophils/100 WBC (Bld) 0.8 % 0-1 [facility] CBC W/Diff, Automatedon 09-28 Absolute Lymph 1.66 X10 3/uL Normal 0.83-4.51 [facility] Comment on above: Performed By: #### L 500.2500, L100.0100 ####[facility] [address] [place], [address] Absolute Neut 3.7 X10 3/uL Normal 2.0-7.7 [facility] Comment on above: Performed By: #### L 500.2500, L100.0100 ####[facility] [address] [place], [address] Basophils/100 WBC (Bld) 0.8 % Normal 0-1 [facility] Comment on above: Performed By: #### L 500.2500, L100.0100 ####[facility] [address] [place], [address] Eosinophils/100 WBC (Bld) 1.7 % Normal 0-5 [facility] Comment on above: Performed By: #### L 500.2500, L100.0100 ####[facility] [address] [place], [address] Erythrocyte distribution width (RBC) [Ratio] 12.8 % Normal 11.6-14.6 [facility] Comment on above: Performed By: #### L 500.2500, L100.0100 ####[facility] [address] [place], [address] Hematocrit (Bld) [Volume fraction] 33.8 % Low 37-47 [facility] Comment on above: Performed By: #### L 500.2500, L100.0100 ####[facility] [address] [place], [address] Hemoglobin (Bld) [Mass/Vol] 11.0 g/dL Low 12.0-15.0 [facility] Comment on above: Performed By: #### L 500.2500, L100.0100 ####[facility] [address] [place], [address] IG% 0.500 Normal 0.0-0.9 [facility] Comment on above: Result Comment: IG% - Immature Granulocytes (promyelocytes, myelocytes andmetamyelocytes) > 1% indicates that a LEFT SHIFT is Present. Performed By: #### L 500.2500, L100.0100 ####[facility] [address] [place], [address] Lymphocytes/100 WBC (Bld) 28.0 % Normal 19-41 [facility] Comment on above: Performed By: #### L 500.2500, L100.0100 ####[facility] [address] [place], [address] MCH (RBC) [Entitic mass] 32.0 pg Normal 27.0-32.0 [facility] Comment on above: Performed By: #### L 500.2500, L100.0100 ####[facility] [address] [place], [address] MCHC (RBC) [Mass/Vol] 32.5 g/dL Normal 32-36 [facility] Comment on above: Performed By: #### L 500.2500, L100.0100 ####[facility] [address] [place], [address] MCV (RBC) [Entitic vol] 98.3 fL Normal 81-99 [facility] Comment on above: Performed By: #### L 500.2500, L100.0100 ####[facility] [address] [place], [address] Monocytes/100 WBC (Bld) 6.8 % Normal 0-10 [facility] Comment on above: Performed By: #### L 500.2500, L100.0100 ####[facility] [address] [place], [address] Neutrophils/100 WBC (Bld) 62.2 % Normal 47-70 [facility] Comment on above: Performed By: #### L 500.2500, L100.0100 ####[facility] [address] [place], [address] Nucleated RBC (Bld) [#/Vol] 0 10*3/uL Normal 0-5 [facility] Comment on above: Performed By: #### L 500.2500, L100.0100 ####[facility] [address] [place], [address] Platelet mean volume (Bld) [Entitic vol] 11.0 fL Normal 6.2-12.0 [facility] Comment on above: Performed By: #### L 500.2500, L100.0100 ####[facility] [address] [place], [address] Platelets (Bld) [#/Vol] 220 10*3/uL Normal 150-450 [facility] Comment on above: Performed By: #### L 500.2500, L100.0100 ####[facility] [address] [place], [address] RBC (Bld) [#/Vol] 3.44 10*6/uL Low 4.2-5.4 [facility] Comment on above: Performed By: #### L 500.2500, L100.0100 ####[facility] [address] [place], [address] RDW SD 46.2 fl High 35.1-43.9 [facility] Comment on above: Performed By: #### L 500.2500, L100.0100 ####[facility] [address] [place], [address] WBC (Bld) [#/Vol] 5.9 10*3/uL Normal 4.4-11.0 [facility] Comment on above: Performed By: #### L 500.2500, L100.0100 ####[facility] [address] [place], [place], [id number] Carbon dioxide, total [Moles /volume] in Central venous bloodOrdered By: Ning Spencer on 10-24-2024 CO2 [Moles/Vol] 19.4 mmol/L Low 21.0-32.0 [facility] Cardiology Visit Reporton Cardiology Visit Report Normal [facility] Chloride assayOrdered By: Colin Spencer on 10-24-2024 Chloride [Moles/Vol] 106 mmol/L 98-108 [facility] Eosinophil percentageOrdered By: Ning Spencer on 10-24-2024 Eosinophils/100 WBC (Bld) 1.7 % 0-5 [facility] Erythrocyte distribution wid th (RBC) [Ratio]Ordered By: Ning Spencer on 10-24-2024 Erythrocyte distribution width (RBC) [Entitic vol] 46.2 fL High 35.1-43.9 [facility] Erythrocyte distribution wid th ratioOrdered By: Ning Spencer on 10-24-2024 Erythrocyte distribution width (RBC) [Ratio] 12.8 % 11.6-14.6 [facility] Erythrocyte distribution wid th standard deviationOrdered By: Ning Spencer on 10-24-2024 Erythrocyte distribution width (RBC) [Ratio] 46.2 fl High 35.1-43.9 [facility] GFR/1.73 sq M.predicted jennifer g non-blacks MDRD (S/P/Bld) [Vol rate/Area]Ordered By: Ning Spencer on 10-24-2024 Estimated GFR (MDRD) Non-Af Amer 23 Low >60 [facility] Comment on above: mL/min/1.73m2 CKD-EP I Creatinine Equation (2020) Glomerular filtration rate ( GFR) estimation/1.73 sq m using serum, plasma, or whole bOrdered By: Ning Spencer on 10-24-2024 GFR/1.73 sq M.predicted among non-blacks MDRD (S/P/Bld) [Vol rate/Area] 23 mL/min/{1.73_m2} Low >60 [facility] Comment on above: mL/min/1.73m2 CKD-EP I Creatinine Equation (2020) Hematocrit Auto (Bld) [Volum e fraction]Ordered By: Ning Spencer on 10-24-2024 Hematocrit (Bld) [Volume fraction] 33.8 % Low 37-47 [facility] Hemoglobin measurementOrdere d By: Ning Spencer on 10-24-2024 Hemoglobin (Bld) [Mass/Vol] 11.0 g/dL Low 12.0-15.0 [facility] Immature granulocytes/100 WB C Auto (Bld)Ordered By: Ning Spencer on 10-24-2024 Immature granulocytes/100 WBC (Bld) 0.500 % 0.0-0.9 [facility] Comment on above: IG% - Immature Granu locytes (promyelocytes, myelocytes and metamyelocytes) > 1% indicates that a LEFT SHIFT is Present. Lymphocytes Auto (Unsp spec) [#/Vol]Ordered By: Ning Spencer on 10-24-2024 Lymphocytes (Bld) [#/Vol] 1.66 10*3/uL 0.83-4.51 [facility] Lymphocytes/100 WBC Auto (Un sp spec)Ordered By: Ning Spencer on 10-24-2024 Lymphocytes/100 WBC (Bld) 28.0 % 19-41 [facility] MCV (mean corpuscular volume ) determinationOrdered By: Ning Spencer on 10-24-2024 MCV (RBC) [Entitic vol] 98.3 fL 81-99 [facility] Mean corpuscular hemoglobin (MCH) determinationOrdered By: Ning Spencer on 10-24-2024 MCH (RBC) [Entitic mass] 32.0 pg 27.0-32.0 [facility] Mean corpuscular hemoglobin concentration (MCHC) determinationOrdered By: Ning Spencer on 10-24-2024 MCHC (RBC) [Mass/Vol] 32.5 g/dL 32-36 [facility] Mean platelet volume determi nationOrdered By: Ning Spencer on 10-24-2024 Platelet mean volume (Bld) [Entitic vol] 11.0 fL 6.2-12.0 [facility] Monocyte percentageOrdered B y: Ning Spencer on 10-24-2024 Monocytes/100 WBC (Bld) 6.8 % 0-10 [facility] Neutrophil percentageOrdered By: Ning Spencer on 10-24-2024 Neutrophils/100 WBC (Bld) 62.2 % 47-70 [facility] Nucleated red blood cell per centageOrdered By: Ning Spencer on 10-24-2024 Nucleated RBC/100 WBC (Bld) [Ratio] 0 % 0-5 [facility] Platelet countOrdered By: Colin Spencer on 10-24-2024 Platelets (Bld) [#/Vol] 220 10*3/uL 150-450 [facility] Potassium (Unsp spec) [Mass/ Vol]Ordered By: Ning Spencer on 10-24-2024 Potassium [Moles/Vol] 4.9 mmol/L 3.3-5.1 [facility] Potassium measurement (mass/ volume)Ordered By: Ning Spencer on 10-24-2024 Potassium (Unsp spec) [Mass/Vol] 4.9 mmol/L 3.3-5.1 [facility] RBC Auto (Bld) [#/Vol]Ordere d By: Ning Spencer on 10-24-2024 RBC (Bld) [#/Vol] 3.44 10*6/uL Low 4.2-5.4 [facility] Serum creatinine measurement (mass/volume)Ordered By: Ning Spencer on 10-24-2024 Creatinine [Mass/Vol] 2.03 mg/dL High 0.70-1.20 [facility] Serum glucose measurement (m ass/volume)Ordered By: Ning Spencer on 10-24-2024 Glucose [Mass/Vol] 109 mg/dL High 70-99 [facility] Serum or plasma calcium dex urement (mass/volume)Ordered By: Ning Spencer on 10-24-2024 Calcium [Mass/Vol] 9.2 mg/dL 7.6-11.0 [facility] Serum or plasma urea nitroge n measurement (mass/volume)Ordered By: Ning Spencer on 10-24-2024 Urea nitrogen [Mass/Vol] 39 mg/dL High 4-19 [facility] Sodium levelOrdered By: Linda Spencer on 10-24-2024 Sodium [Moles/Vol] 137 mmol/L 133-145 [facility] White blood cell (WBC) count Ordered By: Ning Spencer on 10-24-2024 WBC (Bld) [#/Vol] 5.9 10*3/uL 4.4-11.0 [facility] CNOVon 10-17-2024 CNOV Office Visit (INTMWS) REINIER ELIZABETH ([id number]) 1935 F NFR Date Time Provider Department 10/17/24 1:40 PM OLDER SILVIO INTMWS During your visit today, we recorded the following information about you: Temperature Pulse Respiration Blood pressure 96.8 degrees 62/minute 16/minute 152/84 Weight 61.7 kg OlderSilvio APRN.CNP 10/17/2024 3:13 PM Signed CC: Patient presents with: Recheck: Hosp follow up Afib HPI Reinier Elizabeth is a 88 year old female who presents today for follow up on hospitalization for a-fib. Was admitted to to [facility] recently for a-fib with RVR and was discharged on 10/13. Recording using [employer] software for draft documentation of the visit was discussed with the patient/authorized account service representative; all questions welcomed and answered. Patient/authorized account service representative agreed to proceed A-fib with RVR: - Recent ER visit and hospital admission with HR of 136 bpm. - Experienced a burning sensation in the chest during the night, which subsided around 04:00. - Noticed tachycardia upon waking and sought medical attention. - Currently under the care of [facility]; next appointment scheduled for November 04. - Discharged on 10/13; medication changes included initiation of Cardizem IV, followed by amiodarone, which was discontinued. Current medications include Coreg and Lasix switched to daily versus every other day. - Monitoring HR and BP at home; highest recorded BP since discharge is 142/94 mmHg with HR of 79 bpm. - Denies current dyspnea, palpitations, or fever. Cough is resolving. Nausea: - Onset of nausea this morning, accompanied by generalized malaise and diaphoresis. - Suspects nausea may be related to taking vitamin D on an empty stomach last night. - Consumed a small meal (egg and diced potatoes) today. - Took a migdalia chew for nausea with partial relief. - Denies emesis, changes in urination, or energy levels. Eye Bruise: - Noticed a bruise on the eye 3 days ago, which has worsened over the last 2 days. - Denies trauma, vision changes, or pain. - Currently on Xarelto. REVIEW OF SYSTEMS See HPI PAST MEDICAL HISTORY Diagnosis Date Acquired keratoderma Lichen sclerosis Anemia Anticoagulant long-term use indication: stroke prevention atrial fibrillation At risk for bleeding associated with anticoagulants HAS-BLED score = 2 (age, bleeding) At risk for stroke [id number] = 4 (HTN, age2, female gender) Benign [...] Glaucoma - right eye left eye - [facility] . Dr Gao REPAIR FIRST ABDOMINAL WALL HERNIA 12/14/2012 2cm defect - Parietex Composite ventral patch 6cm STRESS TEST 04/14/2017 PAWAN 02/04/2018 ALLERGIES Macrobid [Nitrofurantoin Monohyd/M-Cryst], Amantadine, Capoten [Captopril], Cephalexin, Erythromycin, Hctz [Thiazides], Ivp Dye [Iodine], and Norvasc [Amlodipine Besylate] MEDICATIONS ondansetron (ZOFRAN) 4 mg tablet Take 1 tablet by mouth every 8 hours as needed for nausea/vomiting. losartan (COZAAR) 50 mg tablet Take 1 tablet by mouth two times a day. atorvastatin (LIPITOR) 20 mg tablet Take 1 tablet by mouth every 48 hours. levothyroxine (LEVOXYL) 25 mcg tablet Take 1 tablet by mouth once daily. Take on empty stomach. For Thyroid omeprazole (PRILOSEC) 40 mg capsule Take 1 capsule by mouth daily before breakfast. 1/2 hr before meal. cyanocobalamin, vitamin B-12, (VITAMIN B12 ORAL) Take by mouth once daily. denosumab (PROLIA SUBCUTANEOUS) Inject subcutaneously once (more content not included)... Normal [facility] UA DIP, URINE (POC)on 2024 BILIRUBIN UA (POCT) Negative Negative [facility] CLARITY UA (POCT) Clear [facility] COLOR UA (POCT) Yellow [facility] GLUCOSE UA (POCT) Negative Negative mg/dL [facility] Hemoglobin Ql (U) Negative Negative [facility] KETONE UA (POCT) Negative Negative mg/dL [facility] LEUKOCYTES UA (POCT) Negative Negative [facility] NITRITE UA (POCT) Negative Negative [facility] PH UA (POCT) 5.5 4.5 - 8.0 [facility] Protein Ql (U) Negative Negative mg/dL [facility] SPECIFIC GRAVITY UA (POCT) 1.02 1.005 - 1.030 [facility] UROBILINOGEN UA (POCT) 0.2 Michelle l E.U./dL [facility] Location:[facility], [address], [place], [address] [facility] POINT OF CARE [facility] Absolute lymphocyte countOrd ered By: Nirav Cain on 10-13-2024 Lymphocytes Auto (Unsp spec) [#/Vol] 1.58 10*3/uL 0.83-4.51 [facility] Absolute neutrophil countOrd ered By: Nirav Cain on 10-13-2024 Neutrophils (Bld) [#/Vol] 2.2 10*3/uL 2.0-7.7 [facility] Anion gap in Serum or Plasma Ordered By: Nirav Cain on 10-13-2024 Anion gap [Moles/Vol] 9 mmol/L 5- [facility] Automated lymphocyte count a s percentage of total leukocytesOrdered By: Nirav Cain on 10-13-2024 Lymphocytes/100 WBC Auto (Unsp spec) 33.8 % - [facility] BUN/creatinine ratioOrdered By: Nirav Cain on 10-13-2024 Urea nitrogen/Creatinine [Mass ratio] 16.6 mg/mg - [facility] Basic Metabolic Profile (BMP )on 10-13-2024 BUN/CRE 16.6 RATIO Normal - [facility] Comment on above: Performed By: #### L 100.0100, L500.2500 ####[facility] [address] [place], [address] Calcium [Mass/Vol] 8.6 mg/dL Normal 7.6-11.0 [facility] Comment on above: Performed By: #### L 100.0100, L500.2500 ####[facility] [address] [place], [address] Chloride [Moles/Vol] 111 mmol/L High 98-108 [facility] Comment on above: Performed By: #### L 100.0100, L500.2500 ####[facility] [address] [place], [address] CO2 [Moles/Vol] 17.9 mmol/L Low 21.0-32.0 [facility] Comment on above: Performed By: #### L 100.0100, L500.2500 ####[facility] [address] [place], [address] Creatinine [Mass/Vol] 1.43 mg/dL High 0.70-1.20 [facility] Comment on above: Performed By: #### L 100.0100, L500.2500 ####[facility] [address] [place], [address] ECRCL 24.70 ml/min Low 50-250 [facility] Comment on above: Performed By: #### L 100.0100, L500.2500 ####[facility] [address] [place], [address] GAP 9 Normal 5-15 [facility] Comment on above: Performed By: #### L 100.0100, L500.2500 ####[facility] [address] [place], [address] GFR/1.73 sq M.predicted among non-blacks MDRD (S/P/Bld) [Vol rate/Area] 35 mL/min/{1.73_m2} Low >60 [facility] Comment on above: Result Comment: mL/m in/1.73m2 CKD-EPI Creatinine Equation (2020) Performed By: #### L 100.0100, L500.2500 ####[facility] [address] [place], [address] Glucose [Mass/Vol] 96 mg/dL Normal 70-99 [facility] Comment on above: Performed By: #### L 100.0100, L500.2500 ####[facility] [address] [place], [address] Potassium [Moles/Vol] 4.0 mmol/L Normal 3.3-5.1 [facility] Comment on above: Performed By: #### L 100.0100, L500.2500 ####[facility] [address] [place], [address] Sodium [Moles/Vol] 138 mmol/L Normal 133-145 [facility] Comment on above: Performed By: #### L 100.0100, L500.2500 ####[facility] [address] [place], [address] Urea nitrogen [Mass/Vol] 24 mg/dL High 4-19 [facility] Comment on above: Performed By: #### L 100.0100, L500.2500 ####[facility] [address] [place], [address] Basophil percentageOrdered B y: Niarv Cain on 10-13-2024 Basophils/100 WBC (Bld) 1.1 % High 0-1 [facility] CBC W/Diff, Automatedon 09-27 Absolute Lymph 1.58 X10 3/uL Normal 0.83-4.51 [facility] Comment on above: Performed By: #### L 100.0100, L500.2500 ####[facility] [address] [place], [address] Absolute Neut 2.2 X10 3/uL Normal 2.0-7.7 [facility] Comment on above: Performed By: #### L 100.0100, L500.2500 ####[facility] [address] [place], [address] Basophils/100 WBC (Bld) 1.1 % High 0-1 [facility] Comment on above: Performed By: #### L 100.0100, L500.2500 ####[facility] [address] [place], [address] Eosinophils/100 WBC (Bld) 7.7 % High 0-5 [facility] Comment on above: Performed By: #### L 100.0100, L500.2500 ####[facility] [address] [place], [address] Erythrocyte distribution width (RBC) [Ratio] 13.1 % Normal 11.6-14.6 [facility] Comment on above: Performed By: #### L 100.0100, L500.2500 ####[facility] [address] [place], [address] Hematocrit (Bld) [Volume fraction] 31.0 % Low 37-47 [facility] Comment on above: Performed By: #### L 100.0100, L500.2500 ####[facility] [address] [place], [address] Hemoglobin (Bld) [Mass/Vol] 10.2 g/dL Low 12.0-15.0 [facility] Comment on above: Performed By: #### L 100.0100, L500.2500 ####[facility] [address] [place], [address] IG% 0.200 Normal 0.0-0.9 [facility] Comment on above: Result Comment: IG% - Immature Granulocytes (promyelocytes, myelocytes andmetamyelocytes) > 1% indicates that a LEFT SHIFT is Present. Performed By: #### L 100.0100, L500.2500 ####[facility] [address] [place], [address] Lymphocytes/100 WBC (Bld) 33.8 % Normal 19-41 [facility] Comment on above: Performed By: #### L 100.0100, L500.2500 ####[facility] [address] [place], [address] MCH (RBC) [Entitic mass] 32.0 pg Normal 27.0-32.0 [facility] Comment on above: Performed By: #### L 100.0100, L500.2500 ####[facility] [address] [place], [address] MCHC (RBC) [Mass/Vol] 32.9 g/dL Normal 32-36 [facility] Comment on above: Performed By: #### L 100.0100, L500.2500 ####[facility] [address] [place], [address] MCV (RBC) [Entitic vol] 97.2 fL Normal 81-99 [facility] Comment on above: Performed By: #### L 100.0100, L500.2500 ####[facility] [address] [place], [address] Monocytes/100 WBC (Bld) 10.0 % Normal 0-10 [facility] Comment on above: Performed By: #### L 100.0100, L500.2500 ####[facility] [address] [place], [address] Neutrophils/100 WBC (Bld) 47.2 % Normal 47-70 [facility] Comment on above: Performed By: #### L 100.0100, L500.2500 ####[facility] [address] [place], [address] Nucleated RBC (Bld) [#/Vol] 0 10*3/uL Normal 0-5 [facility] Comment on above: Performed By: #### L 100.0100, L500.2500 ####[facility] [address] [place], [address] Platelet mean volume (Bld) [Entitic vol] 10.2 fL Normal 6.2-12.0 [facility] Comment on above: Performed By: #### L 100.0100, L500.2500 ####[facility] [address] [place], [address] Platelets (Bld) [#/Vol] 192 10*3/uL Normal 150-450 [facility] Comment on above: Performed By: #### L 100.0100, L500.2500 ####[facility] [address] [place], [address] RBC (Bld) [#/Vol] 3.19 10*6/uL Low 4.2-5.4 [facility] Comment on above: Performed By: #### L 100.0100, L500.2500 ####[facility] [address] [place], [address] RDW SD 46.5 fl High 35.1-43.9 [facility] Comment on above: Performed By: #### L 100.0100, L500.2500 ####[facility] [address] [place], [address] WBC (Bld) [#/Vol] 4.7 10*3/uL Normal 4.4-11.0 [facility] Comment on above: Performed By: #### L 100.0100, L500.2500 ####[facility] [address] [place], [address] Carbon dioxide, total [Moles /volume] in Central venous bloodOrdered By: Nirav Cain on 10-13-2024 CO2 [Moles/Vol] 17.9 mmol/L Low 21.0-32.0 [facility] Chloride assayOrdered By: Mary cholgrace Cain on 10-13-2024 Chloride [Moles/Vol] 111 mmol/L High 98-108 [facility] Discharge Instructionon 09-27 Discharge Instruction Normal [facility] Electrocardiogram reportOrde red By: Jake Kingston on 10-13-2024 EKG study [facility] Cardiovascular Services [address] [place] [address] 12 Lead EKG 10/11/24 1726 MR#: [id number] Acct: [id number] Name: REINIER ELIZABETH Rep #:[id number] : 1935 88 From: Jake al MD Attending Dr: Dr. Nirav Cain MD Status: ADM IN Ordering Dr: Jake Kingston MD Date: 10/11/24 Location: [facility] Sex: F C Admitted: 10/11/24 Test Reason : AFIB Blood Pressure : */* mmHG Vent. Rate : 78 BPM Atrial Rate : * BPM P-R Int : * ms QRS Dur : 82 ms QT Int : 362 ms P-R-T Axes : * 30 -19 degrees QTcB Int : 412 ms Atrial fibrillation with premature ventricular or aberrantly conducted complexes Nonspecific ST abnormality Abnormal ECG When compared with ECG of 11-Oct-2024 11:20, MANUAL COMPARISON REQUIRED DATA IS UNCONFIRMED Confirmed by Jake Kingston ([id number]), web editor L[facility] ASHLEY ([id number]) on 59:39:42 AM Referred By: TIMMY Confirmed By: Jake Kingston 10/13/24 0939 Date _ Jake Kingston MD CC: Dr. Anay Schuler MD; Dr. Jake Kingston MD; Dr. Nirav Cain MD ~ Signed [facility] Work Phone: Eosinophil percentageOrdered By: Nirav Cain on 10-13-2024 Eosinophils/100 WBC (Bld) 7.7 % High 0-5 [facility] Erythrocyte distribution wid th (RBC) [Ratio]Ordered By: Nirav Cain on 10-13-2024 Erythrocyte distribution width (RBC) [Entitic vol] 46.5 fL High 35.1-43.9 [facility] Erythrocyte distribution wid th ratioOrdered By: Nirav Cain on 10-13-2024 Erythrocyte distribution width (RBC) [Ratio] 13.1 % 11.6-14.6 [facility] Erythrocyte distribution wid th standard deviationOrdered By: Nirav Cain on 10-13-2024 Erythrocyte distribution width (RBC) [Ratio] 46.5 fl High 35.1-43.9 [facility] Estimation of creatinine asael aranceOrdered By: Nirav Cain on 10-13-2024 Estimated Creatinine Clearance Calc 24.70 ml/min Low 50-250 [facility] GFR/1.73 sq M.predicted jennifer g non-blacks MDRD (S/P/Bld) [Vol rate/Area]Ordered By: Nirav Cain on 10-13-2024 Estimated GFR (MDRD) Non-Af Amer 35 Low >60 [facility] Comment on above: mL/min/1.73m2 CKD-EP I Creatinine Equation (2020) Glomerular filtration rate ( GFR) estimation/1.73 sq m using serum, plasma, or whole bOrdered By: Nirav Cain on 10-13-2024 GFR/1.73 sq M.predicted among non-blacks MDRD (S/P/Bld) [Vol rate/Area] 35 mL/min/{1.73_m2} Low >60 [facility] Comment on above: mL/min/1.73m2 CKD-EP I Creatinine Equation (2020) Hematocrit Auto (Bld) [Volum e fraction]Ordered By: Nirav Cain on 10-13-2024 Hematocrit (Bld) [Volume fraction] 31.0 % Low 37-47 [facility] Hemoglobin measurementOrdere d By: Nirav Cain on 10-13-2024 Hemoglobin (Bld) [Mass/Vol] 10.2 g/dL Low 12.0-15.0 [facility] Immature granulocytes/100 WB C Auto (Bld)Ordered By: Nirav Cain on 10-13-2024 Immature granulocytes/100 WBC (Bld) 0.200 % 0.0-0.9 [facility] Comment on above: IG% - Immature Granu locytes (promyelocytes, myelocytes and metamyelocytes) > 1% indicates that a LEFT SHIFT is Present. Lymphocytes Auto (Unsp spec) [#/Vol]Ordered By: Nirav Cain on 10-13-2024 Lymphocytes (Bld) [#/Vol] 1.58 10*3/uL 0.83-4.51 [facility] Lymphocytes/100 WBC Auto (Un sp spec)Ordered By: Nirav Cain on 10-13-2024 Lymphocytes/100 WBC (Bld) 33.8 % 19-41 [facility] MCV (mean corpuscular volume ) determinationOrdered By: Nirav Cain on 10-13-2024 MCV (RBC) [Entitic vol] 97.2 fL 81-99 [facility] Mean corpuscular hemoglobin (MCH) determinationOrdered By: Nirav Cain on 10-13-2024 MCH (RBC) [Entitic mass] 32.0 pg 27.0-32.0 [facility] Mean corpuscular hemoglobin concentration (MCHC) determinationOrdered By: Nirav Cain on 10-13-2024 MCHC (RBC) [Mass/Vol] 32.9 g/dL 32-36 [facility] Mean platelet volume determi nationOrdered By: Nirav Cain on 10-13-2024 Platelet mean volume (Bld) [Entitic vol] 10.2 fL 6.2-12.0 [facility] Monocyte percentageOrdered B y: Nirav Cain on 10-13-2024 Monocytes/100 WBC (Bld) 10.0 % 0-10 [facility] Neutrophil percentageOrdered By: Nirav Cain on 10-13-2024 Neutrophils/100 WBC (Bld) 47.2 % 47-70 [facility] Nucleated red blood cell per centageOrdered By: Nirav Cain on 10-13-2024 Nucleated RBC/100 WBC (Bld) [Ratio] 0 % 0-5 [facility] Platelet countOrdered By: Mary Cain on 10-13-2024 Platelets (Bld) [#/Vol] 192 10*3/uL 150-450 [facility] Potassium (Unsp spec) [Mass/ Vol]Ordered By: Nirav Cain on 10-13-2024 Potassium [Moles/Vol] 4.0 mmol/L 3.3-5.1 [facility] Potassium measurement (mass/ volume)Ordered By: Nirav Cain on 10-13-2024 Potassium (Unsp spec) [Mass/Vol] 4.0 mmol/L 3.3-5.1 [facility] RBC Auto (Bld) [#/Vol]Ordere d By: Nirav Cain on 10-13-2024 RBC (Bld) [#/Vol] 3.19 10*6/uL Low 4.2-5.4 [facility] Serum creatinine measurement (mass/volume)Ordered By: Nirav Cain on 10-13-2024 Creatinine [Mass/Vol] 1.43 mg/dL High 0.70-1.20 [facility] Serum glucose measurement (m ass/volume)Ordered By: Nirav Cain on 10-13-2024 Glucose [Mass/Vol] 96 mg/dL 70-99 [facility] Serum or plasma calcium dex urement (mass/volume)Ordered By: Nirav Cain on 10-13-2024 Calcium [Mass/Vol] 8.6 mg/dL 7.6-11.0 [facility] Serum or plasma urea nitroge n measurement (mass/volume)Ordered By: iNrav Cain on 10-13-2024 Urea nitrogen [Mass/Vol] 24 mg/dL High 4-19 [facility] Sodium levelOrdered By: Azar aCin on 10-13-2024 Sodium [Moles/Vol] 138 mmol/L 133-145 [facility] White blood cell (WBC) count Ordered By: Nirav Cain on 10-13-2024 WBC (Bld) [#/Vol] 4.7 10*3/uL 4.4-11.0 [facility] Bilirubin, totalOrdered By: Inocencia Long on 10-12-2024 Bilirubin [Mass/Vol] 0.34 mg/dL 0.00-1.30 [facility] CBC W/Diff, Automatedon 09-27 Absolute Lymph 1.24 X10 3/uL Normal 0.83-4.51 [facility] Comment on above: Performed By: #### L 500.4050, L500.4100, L100.0100 ####[facility] [address] [place], [address] Absolute Neut 2.5 X10 3/uL Normal 2.0-7.7 [facility] Comment on above: Performed By: #### L 500.4050, L500.4100, L100.0100 ####[facility] [address] [place], [address] Basophils/100 WBC (Bld) 0.4 % Normal 0-1 [facility] Comment on above: Performed By: #### L 500.4050, L500.4100, L100.0100 ####[facility] [address] [place], [address] Eosinophils/100 WBC (Bld) 7.5 % High 0-5 [facility] Comment on above: Performed By: #### L 500.4050, L500.4100, L100.0100 ####[facility] [address] [place], [address] Erythrocyte distribution width (RBC) [Ratio] 13.1 % Normal 11.6-14.6 [facility] Comment on above: Performed By: #### L 500.4050, L500.4100, L100.0100 ####[facility] [address] [place], [address] Hematocrit (Bld) [Volume fraction] 27.6 % Low 37-47 [facility] Comment on above: Performed By: #### L 500.4050, L500.4100, L100.0100 ####[facility] [address] [place], [address] Hemoglobin (Bld) [Mass/Vol] 9.1 g/dL Low 12.0-15.0 [facility] Comment on above: Performed By: #### L 500.4050, L500.4100, L100.0100 ####[facility] [address] [place], [address] IG% 0.200 Normal 0.0-0.9 [facility] Comment on above: Result Comment: IG% - Immature Granulocytes (promyelocytes, myelocytes andmetamyelocytes) > 1% indicates that a LEFT SHIFT is Present. Performed By: #### L 500.4050, L500.4100, L100.0100 ####[facility] [address] [place], [address] Lymphocytes/100 WBC (Bld) 26.7 % Normal 19-41 [facility] Comment on above: Performed By: #### L 500.4050, L500.4100, L100.0100 ####[facility] [address] [place], [address] MCH (RBC) [Entitic mass] 31.6 pg Normal 27.0-32.0 [facility] Comment on above: Performed By: #### L 500.4050, L500.4100, L100.0100 ####[facility] [address] [place], [address] MCHC (RBC) [Mass/Vol] 33.0 g/dL Normal 32-36 [facility] Comment on above: Performed By: #### L 500.4050, L500.4100, L100.0100 ####[facility] [address] [place], [address] MCV (RBC) [Entitic vol] 95.8 fL Normal 81-99 [facility] Comment on above: Performed By: #### L 500.4050, L500.4100, L100.0100 ####[facility] [address] [place], [address] Monocytes/100 WBC (Bld) 11.0 % High 0-10 [facility] Comment on above: Performed By: #### L 500.4050, L500.4100, L100.0100 ####[facility] [address] [place], [address] Neutrophils/100 WBC (Bld) 54.2 % Normal 47-70 [facility] Comment on above: Performed By: #### L 500.4050, L500.4100, L100.0100 ####[facility] [address] [place], [address] Nucleated RBC (Bld) [#/Vol] 0 10*3/uL Normal 0-5 [facility] Comment on above: Performed By: #### L 500.4050, L500.4100, L100.0100 ####[facility] [address] [place], [address] Platelet mean volume (Bld) [Entitic vol] 10.3 fL Normal 6.2-12.0 [facility] Comment on above: Performed By: #### L 500.4050, L500.4100, L100.0100 ####[facility] [address] [place], [address] Platelets (Bld) [#/Vol] 181 10*3/uL Normal 150-450 [facility] Comment on above: Performed By: #### L 500.4050, L500.4100, L100.0100 ####[facility] [address] [place], [address] RBC (Bld) [#/Vol] 2.88 10*6/uL Low 4.2-5.4 [facility] Comment on above: Performed By: #### L 500.4050, L500.4100, L100.0100 ####[facility] [address] [place], [address] RDW SD 46.0 fl High 35.1-43.9 [facility] Comment on above: Performed By: #### L 500.4050, L500.4100, L100.0100 ####[facility] [address] [place], [address] WBC (Bld) [#/Vol] 4.6 10*3/uL Normal 4.4-11.0 [facility] Comment on above: Performed By: #### L 500.4050, L500.4100, L100.0100 ####[facility] [address] [place], [address] Calculated very low density lipoprotein (VLDL) cholesterol measurementOrdered By: Inocencia Long on 04-16-2025 Calculated very low density lipoprotein (VLDL) cholesterol measurement 17 mg/dL 5-40 [facility] VLDL Cholesterol 17 mg/dL 5-40 [facility] Comprehensive Metabolic Prof ilon 10-12-2024 Albumin [Mass/Vol] 3.4 g/dL Normal 3.4-4.8 [facility] Comment on above: Order Comment: Comme nts: Fasting Lipid Profile Performed By: #### L 500.4050, L500.4100, L100.0100 ####[facility] [address] [place], [address] Albumin/Globulin [Mass ratio] 1.3 {ratio} Normal 0.9-2.4 [facility] Comment on above: Order Comment: Comme nts: Fasting Lipid Profile Performed By: #### L 500.4050, L500.4100, L100.0100 ####[facility] [address] [place], [address] ALK PHOS 38 U/L Normal 35-104 [facility] Comment on above: Order Comment: Comme nts: Fasting Lipid Profile Performed By: #### L 500.4050, L500.4100, L100.0100 ####[facility] [address] [place], [address] ALT [Catalytic activity/Vol] 13 U/L Normal <=34 [facility] Comment on above: Order Comment: Comme nts: Fasting Lipid Profile Performed By: #### L 500.4050, L500.4100, L100.0100 ####[facility] [address] [place], [address] AST [Catalytic activity/Vol] 19 U/L Normal <=31 [facility] Comment on above: Order Comment: Comme nts: Fasting Lipid Profile Performed By: #### L 500.4050, L500.4100, L100.0100 ####[facility] [address] [place], [address] Bilirubin [Mass/Vol] 0.34 mg/dL Normal 0.00-1.30 [facility] Comment on above: Order Comment: Comme nts: Fasting Lipid Profile Performed By: #### L 500.4050, L500.4100, L100.0100 ####[facility] [address] [place], [address] BUN/CRE 16.6 RATIO Normal 10-20 [facility] Comment on above: Order Comment: Comme nts: Fasting Lipid Profile Performed By: #### L 500.4050, L500.4100, L100.0100 ####[facility] [address] [place], [address] Calcium [Mass/Vol] 8.4 mg/dL Normal 7.6-11.0 [facility] Comment on above: Order Comment: Comme nts: Fasting Lipid Profile Performed By: #### L 500.4050, L500.4100, L100.0100 ####[facility] [address] [place], [address] Chloride [Moles/Vol] 108 mmol/L Normal 98-108 [facility] Comment on above: Order Comment: Comme nts: Fasting Lipid Profile Performed By: #### L 500.4050, L500.4100, L100.0100 ####[facility] [address] [place], [address] CO2 [Moles/Vol] 18.5 mmol/L Low 21.0-32.0 [facility] Comment on above: Order Comment: Comme nts: Fasting Lipid Profile Performed By: #### L 500.4050, L500.4100, L100.0100 ####[facility] [address] [place], [address] Creatinine [Mass/Vol] 1.63 mg/dL High 0.70-1.20 [facility] Comment on above: Order Comment: Comme nts: Fasting Lipid Profile Performed By: #### L 500.4050, L500.4100, L100.0100 ####[facility] [address] [place], [address] ECRCL 21.24 ml/min Low 50-250 [facility] Comment on above: Order Comment: Comme nts: Fasting Lipid Profile Performed By: #### L 500.4050, L500.4100, L100.0100 ####[facility] [address] [place], [address] GAP 10 Normal 5-15 [facility] Comment on above: Order Comment: Comme nts: Fasting Lipid Profile Performed By: #### L 500.4050, L500.4100, L100.0100 ####[facility] [address] [place], [address] GFR/1.73 sq M.predicted among non-blacks MDRD (S/P/Bld) [Vol rate/Area] 30 mL/min/{1.73_m2} Low >60 [facility] Comment on above: Order Comment: Comme nts: Fasting Lipid Profile Result Comment: mL/m in/1.73m2 CKD-EPI Creatinine Equation (2020) Performed By: #### L 500.4050, L500.4100, L100.0100 ####[facility] [address] [place], [address] Globulin (S) [Mass/Vol] 2.6 g/dL Normal 2.2-4.2 [facility] Comment on above: Order Comment: Comme nts: Fasting Lipid Profile Performed By: #### L 500.4050, L500.4100, L100.0100 ####[facility] [address] [place], [address] Glucose [Mass/Vol] 103 mg/dL High 70-99 [facility] Comment on above: Order Comment: Comme nts: Fasting Lipid Profile Performed By: #### L 500.4050, L500.4100, L100.0100 ####[facility] [address] [place], [address] Potassium [Moles/Vol] 3.7 mmol/L Normal 3.3-5.1 [facility] Comment on above: Order Comment: Comme nts: Fasting Lipid Profile Performed By: #### L 500.4050, L500.4100, L100.0100 ####[facility] [address] [place], [address] Sodium [Moles/Vol] 136 mmol/L Normal 133-145 [facility] Comment on above: Order Comment: Comme nts: Fasting Lipid Profile Performed By: #### L 500.4050, L500.4100, L100.0100 ####[facility] [address] [place], [address] T PROT 5.9 g/dL Normal 5.9-8.4 [facility] Comment on above: Order Comment: Comme nts: Fasting Lipid Profile Performed By: #### L 500.4050, L500.4100, L100.0100 ####[facility] [address] [place], [address] Urea nitrogen [Mass/Vol] 27 mg/dL High 4-19 [facility] Comment on above: Order Comment: Comme nts: Fasting Lipid Profile Performed By: #### L 500.4050, L500.4100, L100.0100 ####[facility] [address] [place], [address] Echocardiogram study reportO rdered By: Fredis Marie on 10-12-2024 Study report [facility] [address] [place] [address] Echo Complete 10/12/24918 MR#: [id number] Acct: [id number] Name: REINIER ELIZABETH Rep #:[id number] : 1935 88 From: Fredis Cardozo Attending Dr: Dr. Nirav Cain MD Status: ADM IN Ordering Dr: Jake Kingston MD Date: 10/11/24 Location: [facility] Sex: F C Admitted: 10/11/24 Reason For Study Reason For Study: ATRIAL FIBRILLATION/FLUTTER Procedure This was a 2D Doppler, Color Flow transthoracic echocardiogram. Exam performed portable in patient room. Left Ventricle Normal LV size. Left ventricular systolic function is normal. The left ventricular ejection fraction is 60 %. No regional wall motion abnormalities noted. Right Ventricle Normal RV size. Normal systolic function. Atria Normal left atrium. Normal right atrium. Mitral Valve Normal mitral valve. Tricuspid Valve Normal tricuspid valve. Moderate (2+) tricuspid valve insufficiency. Pulmonary artery systolic pressure is 64 mmHg. Moderate pulmonary hypertension. Aortic Valve Trisinus/trileaflet aortic valve. Pulmonic Valve Normal pulmonic valve. Great Vessels Normal aortic root. The pulmonary artery is normal size. Normal inferior vena cava. Pericardium/Pleural Small (<1.0 cm) pericardial effusion. MMode/2D Measurements & Calculations LVIDd: 4.0 cm IVSd: 1.0 cm Ao root diam: 3.3 cm LVIDs: 2.9 cm LVPWd: 0.99 cm FS: 25.4 % LAV(MOD-bp): 50.8 ml LVAd ap4: 17.0 cm2 SV(MOD-sp4): 23.5 ml LAV(MOD-bp) Indexed: 31.0 ml/m2 LVLd ap4: 5.8 cm SI(MOD-sp4): 14.4 ml/m2 LAV(MOD-sp2): 46.4 ml EDV(MOD-sp4): 40.5 ml LAV(MOD-sp4): 52.6 ml EDV(sp4-el): 42.0 ml LVAs ap4: 10.1 cm2 LVLs ap4: 5.2 cm ESV(MOD-sp4): 17.0 ml ESV(sp4-el): 16.5 ml EF(MOD-sp4): 58.1 % EF(sp4-el): 60.7 % SV(sp4-el): 25.5 ml LA A4 area: 18.9 cm2 LA dimension(2D): 4.4 cm ___ RA A4 area: 12.9 cm2 TAPSE: 1.8 cm Doppler Measurements & Calculations MV E max goldy: 127.0 cm/sec Lat Peak E' Goldy: 8.3 cm/sec Med Peak E' Goldy: 9.1 cm/sec E/E' lat: 15.3 E/E' med: 13.9 Ao V2 max: 99.6 cm/sec LV V1 max: 88.6 cm/sec PA V2 max: 104.4 cm/sec Ao max P.0 mmHg LV V1 max P.1 mmHg PA V2 mean: 71.4 cm/sec Ao V2 mean: 70.9 cm/sec LV V1 mean P.9 mmHg Ao mean P.3 mmHg LV V1 mean: 65.3 cm/sec Ao V2 VTI: 19.8 cm LV V1 VTI: 19.6 cm AV (velocity ratio): 0.99 TR max goldy: 382.3 cm/sec TR max P.5 mmHg ECHO/Echo Complete Interpretation Summary Normal LV size. Left ventricular systolic function is normal. The left ventricular ejection fraction is 60 %. Small (<1.0 cm) pericardial effusion. Pulmonary artery systolic pressure is 64 mmHg. Moderate pulmonary hypertension. Ordering Physician: Jake Kingston Referring Physician: Anay Schuler Performed By: Denise Ron, JAMESCS, RVT 10/12/24 1303 Date _ Fredis Marie MD CC: Dr. Anay Schuler MD; Dr. Jake Kingston MD; Dr. Nirav Cain MD ~ Date Dictated: 10/12/24918 Date Transcribed: 10/12/24 130 Manager Validation: Signed [facility] Work Phone: LDL calc ser/plasOrdered By: Inocencia Long on 10-12-2024 Cholesterol in LDL [Mass/Vol] 81 mg/dL [facility] Comment on above: Peehavgrgx=297-984 m g/dL & Higher Ztck=270 mg/dL or greater LDL Cholesterol, Calculated 81 mg/dL [facility] Comment on above: Vynygujtlq=896-897 m g/dL & Higher Pzpw=776 mg/dL or greater Laboratory - Chemistry and C hemistry - challengeOrdered By: Inocencia Long on 10-12-2024 AST [Catalytic activity/Vol] 19 U/L <32 [facility] Lipid Profileon 10-12-2024 CHOL:HDL 3.02 Normal [facility] Comment on above: Order Comment: Comme nts: Fasting Lipid Profile Performed By: #### L 500.4050, L500.4100, L100.0100 ####[facility] [address] [place], [address] Cholesterol [Mass/Vol] 146 mg/dL Normal <=200 [facility] Comment on above: Order Comment: Comme nts: Fasting Lipid Profile Result Comment: Chol esterol level, Desirable <200 mg/dLBorderline high cholesterol 200-239 mg/dLHigh cholesterol >=240 mg/dLRecommendations of the NCEP Adult Treatment Panel for thefollowing risk-cutoff thresholds for the [place] American[place]ulation. Performed By: #### L 500.4050, L500.4100, L100.0100 ####[facility] [address] [place], [address] Cholesterol in HDL [Mass/Vol] 48 mg/dL Normal [facility] Comment on above: Order Comment: Comme nts: Fasting Lipid Profile Result Comment: Lita onal Cholesterol Education Program (NCEP) guidelines:<40 mg/dL: Low HDL-cholesterol (major risk factor for CHD)>= 60 mg/dL: High HDL-cholesterol (negative risk factor forCHD)HDL-cholesterol is affected by a number of factors, e.g.smoking, exercise, hormones, sex and age. Performed By: #### L 500.4050, L500.4100, L100.0100 ####[facility] [address] [place], [address] Cholesterol in LDL [Mass/Vol] 81 mg/dL Normal [facility] Comment on above: Order Comment: Comme nts: Fasting Lipid Profile Result Comment: Bord eqimbp=448-648 mg/dL Higher Ntrn=258 mg/dL or greater Performed By: #### L 500.4050, L500.4100, L100.0100 ####[facility] [address] [place], [address] Cholesterol in VLDL [Mass/Vol] 17 mg/dL Normal 5-40 [facility] Comment on above: Order Comment: Comme nts: Fasting Lipid Profile Performed By: #### L 500.4050, L500.4100, L100.0100 ####[facility] [address] [place], [address] Triglyceride [Mass/Vol] 85 mg/dL Normal [facility] Comment on above: Order Comment: Comme nts: Fasting Lipid Profile Result Comment: The drugs N-Acetylcysteine and Metamizole may falselydepress this assay.Normal range: <150 mg/dLBorderline High: 150-199 mg/dLHigh: 200-499 mg/dLVery High: >500 mg/dL Performed By: #### L 500.4050, L500.4100, L100.0100 ####[facility] [address] [place], [address] No Panel InformationOrdered By: Inocencia Long on 10-12-2024 19 U/L <32 [facility] Screening total cholesterol/ high density lipoprotein (HDL) cholesterol ratioOrdered By: Inocencia Long on 10-12-2024 Cholesterol.total/Choles terol in HDL [Mass ratio] 3.02 {ratio} [facility] Serum globulin measurementOr dered By: Inocencia Long on 10-12-2024 Globulin (S) [Mass/Vol] 2.6 g/dL 2.2-4.2 [facility] Serum or plasma alanine king otransferase (ALT) measurementOrdered By: Inocencia Long on 10-12-2024 ALT [Catalytic activity/Vol] 13 U/L <35 [facility] Serum or plasma albumin dex urement (mass/volume)Ordered By: Inocencia Long on 10-12-2024 Albumin [Mass/Vol] 3.4 g/dL 3.4-4.8 [facility] Serum or plasma albumin/glob ulin mass ratioOrdered By: Inocencia Long 10-12-2024 Albumin/Globulin [Mass ratio] 1.3 {ratio} 0.9-2.4 [facility] Serum or plasma alkaline carlie sphatase measurementOrdered By: Inocencia Long 10-12-2024 ALP [Catalytic activity/Vol] 38 U/L 35-104 [facility] Serum or plasma cholesterol in HDL measurement (mass/volume)Ordered By: Inocencia Long on 10-12-2024 Cholesterol in HDL [Mass/Vol] 48 mg/dL >40 [facility] Comment on above: National Cholesterol Education Program (NCEP) guidelines:<40 mg/dL: Low HDL-cholesterol (major risk factor for CHD)>= 60 mg/dL: High HDL-cholesterol (negative risk factor for CHD)HDL-cholesterol is affected by a number of factors, e.g. smoking, exercise, hormones, sex and age. Serum or plasma cholesterol measurement (mass/volume)Ordered By: Inocencia Long on 10-12-2024 Cholesterol [Mass/Vol] 146 mg/dL <201 [facility] Comment on above: Cholesterol level, D esirable <200 mg/dLBorderline high cholesterol 200-239 mg/dLHigh cholesterol >=240 mg/dLRecommendations of the NCEP Adult Treatment Panel for the following risk-cutoff thresholds for the [place] population. Total proteinOrdered By: Pj Long on 10-12-2024 Protein [Mass/Vol] 5.9 g/dL 5.9-8.4 [facility] Triglycerides measurementOrd ered By: Inocencia Long on 10-12-2024 Triglyceride [Mass/Vol] 85 mg/dL <199 [facility] Comment on above: The drugs N-Acetylcy steine and Metamizole may falsely depress this assay. Normal range: <150 mg/dLBorderline High: 150-199 mg/dLHigh: 200-499 mg/dLVery High: >500 mg/dL 12 Lead EKGon 10-11-2024 12 Lead EKG Normal [facility] 12 Lead EKG Normal [facility] Absolute neutrophil countOrd ered By: ED PROVIDER on 10-11-2024 Neutrophils (Bld) [#/Vol] 4.8 10*3/uL 2.0-7.7 [facility] Anion gap in Serum or Plasma Ordered By: Vincent Chan on 10-11-2024 Anion gap [Moles/Vol] 12 mmol/L 11-10 [facility] BUN/creatinine ratioOrdered By: Vincent Chan on 10-11-2024 Urea nitrogen/Creatinine [Mass ratio] 16.2 mg/mg 04-17 [facility] Basic Metabolic Profile (BMP )on 10-11-2024 BUN/CRE 16.2 RATIO Normal 04-17 [facility] Comment on above: Performed By: #### L 100.0100, L500.2500, L501.4021, L300.3900, L501.9520 ####[facility] [address] [place], [address] Calcium [Mass/Vol] 8.9 mg/dL Normal 7.6-11.0 [facility] Comment on above: Performed By: #### L 100.0100, L500.2500, L501.4021, L300.3900, L501.9520 ####[facility] [address] [place], [address] Chloride [Moles/Vol] 105 mmol/L Normal 98-108 [facility] Comment on above: Performed By: #### L 100.0100, L500.2500, L501.4021, L300.3900, L501.9520 ####[facility] [address] [place], [address] CO2 [Moles/Vol] 17.4 mmol/L Low 21.0-32.0 [facility] Comment on above: Performed By: #### L 100.0100, L500.2500, L501.4021, L300.3900, L501.9520 ####[facility] [address] [place], [address] Creatinine [Mass/Vol] 1.70 mg/dL High 0.70-1.20 [facility] Comment on above: Performed By: #### L 100.0100, L500.2500, L501.4021, L300.3900, L501.9520 ####[facility] [address] [place], [address] ECRCL 20.52 ml/min Low 50-250 [facility] Comment on above: Performed By: #### L 100.0100, L500.2500, L501.4021, L300.3900, L501.9520 ####[facility] [address] [place], [address] GAP 12 Normal 5-15 [facility] Comment on above: Performed By: #### L 100.0100, L500.2500, L501.4021, L300.3900, L501.9520 ####[facility] [address] [place], [address] GFR/1.73 sq M.predicted among non-blacks MDRD (S/P/Bld) [Vol rate/Area] 29 mL/min/{1.73_m2} Low >60 [facility] Comment on above: Result Comment: mL/m in/1.73m2 CKD-EPI Creatinine Equation (2020) Performed By: #### L 100.0100, L500.2500, L501.4021, L300.3900, L501.9520 ####[facility] [address] [place], [address] Glucose [Mass/Vol] 117 mg/dL High 70-99 [facility] Comment on above: Performed By: #### L 100.0100, L500.2500, L501.4021, L300.3900, L501.9520 ####[facility] [address] [place], [address] Potassium [Moles/Vol] 4.1 mmol/L Normal 3.3-5.1 [facility] Comment on above: Performed By: #### L 100.0100, L500.2500, L501.4021, L300.3900, L501.9520 ####[facility] [address] [place], [address] Sodium [Moles/Vol] 134 mmol/L Normal 133-145 [facility] Comment on above: Performed By: #### L 100.0100, L500.2500, L501.4021, L300.3900, L501.9520 ####[facility] [address] [place], [address] Urea nitrogen [Mass/Vol] 28 mg/dL High 4-19 [facility] Comment on above: Performed By: #### L 100.0100, L500.2500, L501.4021, L300.3900, L501.9520 ####[facility] [address] [place], [address] Basophil percentageOrdered B y: ED PROVIDER on 10-11-2024 Basophils/100 WBC (Bld) 0.4 % 0-1 [facility] Bilirubin Test strip Ql (U)O rdered By: Brigido Alejandre on 10-11-2024 Bilirubin Ql (U) Negative Negative [facility] CBC W/Diff, Automatedon 09-27 Absolute Lymph 1.04 X10 3/uL Normal 0.83-4.51 [facility] Comment on above: Performed By: #### L 100.0100, L500.2500, L501.4021, L300.3900, L501.9520 ####[facility] [address] [place], [address] Absolute Neut 4.8 X10 3/uL Normal 2.0-7.7 [facility] Comment on above: Performed By: #### L 100.0100, L500.2500, L501.4021, L300.3900, L501.9520 ####[facility] [address] [place], [address] Basophils/100 WBC (Bld) 0.4 % Normal 0-1 [facility] Comment on above: Performed By: #### L 100.0100, L500.2500, L501.4021, L300.3900, L501.9520 ####[facility] [address] [place], [address] Eosinophils/100 WBC (Bld) 3.7 % Normal 0-5 [facility] Comment on above: Performed By: #### L 100.0100, L500.2500, L501.4021, L300.3900, L501.9520 ####[facility] [address] [place], [address] Erythrocyte distribution width (RBC) [Ratio] 13.1 % Normal 11.6-14.6 [facility] Comment on above: Performed By: #### L 100.0100, L500.2500, L501.4021, L300.3900, L501.9520 ####[facility] [address] [place], [address] Hematocrit (Bld) [Volume fraction] 31.6 % Low 37-47 [facility] Comment on above: Performed By: #### L 100.0100, L500.2500, L501.4021, L300.3900, L501.9520 ####[facility] [address] [place], [address] Hemoglobin (Bld) [Mass/Vol] 10.7 g/dL Low 12.0-15.0 [facility] Comment on above: Performed By: #### L 100.0100, L500.2500, L501.4021, L300.3900, L501.9520 ####[facility] [address] [place], [address] IG% 0.300 Normal 0.0-0.9 [facility] Comment on above: Result Comment: IG% - Immature Granulocytes (promyelocytes, myelocytes andmetamyelocytes) > 1% indicates that a LEFT SHIFT is Present. Performed By: #### L 100.0100, L500.2500, L501.4021, L300.3900, L501.9520 ####[facility] [address] [place], [address] Lymphocytes/100 WBC (Bld) 15.2 % Low 19-41 [facility] Comment on above: Performed By: #### L 100.0100, L500.2500, L501.4021, L300.3900, L501.9520 ####[facility] [address] [place], [address] MCH (RBC) [Entitic mass] 32.3 pg High 27.0-32.0 [facility] Comment on above: Performed By: #### L 100.0100, L500.2500, L501.4021, L300.3900, L501.9520 ####[facility] [address] [place], [address] MCHC (RBC) [Mass/Vol] 33.9 g/dL Normal 32-36 [facility] Comment on above: Performed By: #### L 100.0100, L500.2500, L501.4021, L300.3900, L501.9520 ####[facility] [address] [place], [address] MCV (RBC) [Entitic vol] 95.5 fL Normal 81-99 [facility] Comment on above: Performed By: #### L 100.0100, L500.2500, L501.4021, L300.3900, L501.9520 ####[facility] [address] [place], [address] Monocytes/100 WBC (Bld) 9.6 % Normal 0-10 [facility] Comment on above: Performed By: #### L 100.0100, L500.2500, L501.4021, L300.3900, L501.9520 ####[facility] [address] [place], [address] Neutrophils/100 WBC (Bld) 70.8 % High 47-70 [facility] Comment on above: Performed By: #### L 100.0100, L500.2500, L501.4021, L300.3900, L501.9520 ####[facility] [address] [place], [address] Nucleated RBC (Bld) [#/Vol] 0 10*3/uL Normal 0-5 [facility] Comment on above: Performed By: #### L 100.0100, L500.2500, L501.4021, L300.3900, L501.9520 ####[facility] [address] [place], [address] Platelet mean volume (Bld) [Entitic vol] 10.2 fL Normal 6.2-12.0 [facility] Comment on above: Performed By: #### L 100.0100, L500.2500, L501.4021, L300.3900, L501.9520 ####[facility] [address] [place], [address] Platelets (Bld) [#/Vol] 199 10*3/uL Normal 150-450 [facility] Comment on above: Performed By: #### L 100.0100, L500.2500, L501.4021, L300.3900, L501.9520 ####[facility] [address] [place], [address] RBC (Bld) [#/Vol] 3.31 10*6/uL Low 4.2-5.4 [facility] Comment on above: Performed By: #### L 100.0100, L500.2500, L501.4021, L300.3900, L501.9520 ####[facility] [address] [place], [address] RDW SD 45.2 fl High 35.1-43.9 [facility] Comment on above: Performed By: #### L 100.0100, L500.2500, L501.4021, L300.3900, L501.9520 ####[facility] [address] [place], [address] WBC (Bld) [#/Vol] 6.8 10*3/uL Normal 4.4-11.0 [facility] Comment on above: Performed By: #### L 100.0100, L500.2500, L501.4021, L300.3900, L501.9520 ####[facility] [address] [place], [address] Carbon dioxide, total [Moles /volume] in Central venous bloodOrdered By: Vincent Chan on 10-11-2024 CO2 [Moles/Vol] 17.4 mmol/L Low 21.0-32.0 [facility] Chest 1 View (Portable)on Chest 1 View (Portable) Normal [facility] Chloride assayOrdered By: Lucie Chan on 10-11-2024 Chloride [Moles/Vol] 105 mmol/L 98-108 [facility] Consultation - Cardiologyon 10-11-2024 Consultation - Cardiology Normal [facility] Echo Completeon 10-11-2024 Echo Complete Normal [facility] Emergency Department Summary on 10-11-2024 Emergency Department Summary Normal [facility] Eosinophil percentageOrdered By: ED PROVIDER on 10-11-2024 Eosinophils/100 WBC (Bld) 3.7 % 0-5 [facility] Epithelial cells.squamous LM Ql (Urine sed)Ordered By: Brigido Alejandre on 10-11-2024 Epithelial cells.squamous LM.HPF (Urine sed) [#/Area] 0 /[HPF] 5-10 [facility] Erythrocyte distribution wid th (RBC) [Ratio]Ordered By: ED PROVIDER on 10-11-2024 Erythrocyte distribution width (RBC) [Entitic vol] 45.2 fL High 35.1-43.9 [facility] Erythrocyte distribution wid th ratioOrdered By: ED PROVIDER on 10-11-2024 Erythrocyte distribution width (RBC) [Ratio] 13.1 % 11.6-14.6 [facility] Estimation of creatinine asael aranceOrdered By: Vincent Chan on 10-11-2024 Estimated Creatinine Clearance Calc 20.52 ml/min Low 50-250 [facility] GFR/1.73 sq M.predicted jennifer g non-blacks MDRD (S/P/Bld) [Vol rate/Area]Ordered By: Vincent Chan on 10-11-2024 Estimated GFR (MDRD) Non-Af Amer 29 Low >60 [facility] Comment on above: mL/min/1.73m2 CKD-EP I Creatinine Equation (2020) Glucose Ql (U)Ordered By: Siobhan Alejandre on 10-11-2024 Urine Glucose (UA) Normal mg/dl Normal [facility] H AND P Exam - Hospitaliston 10-11-2024 H&P Exam - Hospitalist Normal [facility] Hematocrit Auto (Bld) [Volum e fraction]Ordered By: ED PROVIDER on 10-11-2024 Hematocrit (Bld) [Volume fraction] 31.6 % Low 37-47 [facility] Hemoglobin measurementOrdere d By: ED PROVIDER on 10-11-2024 Hemoglobin (Bld) [Mass/Vol] 10.7 g/dL Low 12.0-15.0 [facility] Immature granulocytes/100 WB C Auto (Bld)Ordered By: ED PROVIDER on 10-11-2024 Immature granulocytes/100 WBC (Bld) 0.300 % 0.0-0.9 [facility] Comment on above: IG% - Immature Granu locytes (promyelocytes, myelocytes and metamyelocytes) > 1% indicates that a LEFT SHIFT is Present. Influenza virus A and B and SARS-CoV-2 (COVID-19) and Respiratory syncytial virus RNAOrdered By: Brigido Alejandre on 10-11-2024 SARS-CoV-2 (COVID-19) RNA GUERA+probe Ql (Unsp spec) [facility] International normalized rat io (INR) calculationOrdered By: Vincent Chan on 10-11-2024 INR Coag (Bld) [Relative time] 1.7 {INR} [facility] Ketones Test strip Ql (U)Ord ered By: Brigido Alejandre on 10-11-2024 Ketones Ql (U) Negative Negative [facility] L499.0042on 10-11-2024 Trop T High Sen 99 ng/L Invalid Interpretation Code <=14 [facility] Comment on above: Result Comment: Crit ical Result(s) Called [facility] at: 1544 by:AMY??Results read back by same. Performed By: #### L 499.0042 ####[facility] [address] [place], [address] L499.0043on 10-11-2024 Trop T High Sen Normal <=14 [facility] Comment on above: Result Comment: OK T O CANCEL PER Roslyn ARECHIGA Performed By: #### L 499.0043 ####[facility] [address] [place], [address] L501.4021on 10-11-2024 Trop T High Sen 82 ng/L Invalid Interpretation Code <=14 [facility] Comment on above: Result Comment: Crit ical Result(s) Called at 1236: by: DAHLIA WALTER. ??Results read back by same. Performed By: #### L 100.0100, L500.2500, L501.4021, L300.3900, L501.9520 ####[facility] [address] [place], [address] Lymphocytes Auto (Unsp spec) [#/Vol]Ordered By: ED PROVIDER on 10-11-2024 Lymphocytes (Bld) [#/Vol] 1.04 10*3/uL 0.83-4.51 [facility] Lymphocytes/100 WBC Auto (Un sp spec)Ordered By: ED PROVIDER on 10-11-2024 Lymphocytes/100 WBC (Bld) 15.2 % Low 19-41 [facility] M100.678on 10-11-2024 M100.678 Pending SARS-CoV-2 (COVID 19) Negative INFLUENZA A Negative INFLUENZA B Negative RSV PCR Negative Normal [facility] Comment on above: Performed By: #### M 100.678 ####[facility] [address] [place], [address] MCV (mean corpuscular volume ) determinationOrdered By: ED PROVIDER on 10-11-2024 MCV (RBC) [Entitic vol] 95.5 fL 81-99 [facility] Magnesiumon 10-11-2024 Magnesium [Mass/Vol] 1.7 mg/dL Normal 1.5-2.2 [facility] Comment on above: Order Comment: Comme nts: may add to ED labs Performed By: #### L 501.5200 ####[facility] [address] [place], [place], [id number] Magnesium (Unsp spec) [Mass/ Vol]Ordered By: Inocencia Long on 10-11-2024 Magnesium [Mass/Vol] 1.7 mg/dL 1.5-2.2 [facility] Magnesium measurement (mass/ volume)Ordered By: Inocencia Long on 10-11-2024 Magnesium (Unsp spec) [Mass/Vol] 1.7 mg/dL 1.5-2.2 [facility] Mean corpuscular hemoglobin (MCH) determinationOrdered By: ED PROVIDER on 10-11-2024 MCH (RBC) [Entitic mass] 32.3 pg High 27.0-32.0 [facility] Mean corpuscular hemoglobin concentration (MCHC) determinationOrdered By: ED PROVIDER on 10-11-2024 MCHC (RBC) [Mass/Vol] 33.9 g/dL 32-36 [facility] Mean platelet volume determi nationOrdered By: ED PROVIDER on 10-11-2024 Platelet mean volume (Bld) [Entitic vol] 10.2 fL 6.2-12.0 [facility] Microscopic analysis of urin e for red blood cells (RBC)Ordered By: Brigido Alejandre on 10-11-2024 Microscopic analysis of urine for red blood cells (RBC) 0 SEEN /hpf 0-5 [facility] Urine RBC 0 SEEN /hpf 0-5 [facility] Monocyte percentageOrdered B y: ED PROVIDER on 10-11-2024 Monocytes/100 WBC (Bld) 9.6 % 0-10 [facility] Mucus LM Ql (Urine sed)Order ed By: Brigido Alejandre on 10-11-2024 Mucus Ql (Urine sed) 0 SEEN /hpf [facility] Neutrophil percentageOrdered By: ED PROVIDER on 10-11-2024 Neutrophils/100 WBC (Bld) 70.8 % High 47-70 [facility] Nitrite Test strip Ql (U)Ord ered By: Brigido Alejandre on 10-11-2024 Nitrite Ql (U) Negative Negative [facility] Nucleated red blood cell per centageOrdered By: ED PROVIDER on 10-11-2024 Nucleated RBC/100 WBC (Bld) [Ratio] 0 % 0-5 [facility] Platelet countOrdered By: ED PROVIDER on 10-11-2024 Platelets (Bld) [#/Vol] 199 10*3/uL 150-450 [facility] Potassium (Unsp spec) [Mass/ Vol]Ordered By: Vincent Chan on 10-11-2024 Potassium [Moles/Vol] 4.1 mmol/L 3.3-5.1 [facility] Protein Test strip Ql (U)Ord ered By: Brigido Alejandre on 10-11-2024 Protein Ql (U) 30 mg/dl High Negative [facility] Prothrombin Time w/INRon INR Coag (PPP) [Relative time] 1.7 {INR} Normal [facility] Comment on above: Performed By: #### L 100.0100, L500.2500, L501.4021, L300.3900, L501.9520 ####[facility] [address] [place], [place], [id number] PT Coag (PPP) [Time] 20.7 s High 11.7-14.9 [facility] Comment on above: Performed By: #### L 100.0100, L500.2500, L501.4021, L300.3900, L501.9520 ####[facility] [address] [place], [address] Prothrombin timeOrdered By: Vincent Chan on 10-11-2024 PT Coag (PPP) [Time] 20.7 s High 11.7-14.9 [facility] RBC Auto (Bld) [#/Vol]Ordere d By: ED PROVIDER on 10-11-2024 RBC (Bld) [#/Vol] 3.31 10*6/uL Low 4.2-5.4 [facility] Serum creatinine measurement (mass/volume)Ordered By: Vincent Chan on 10-11-2024 Creatinine [Mass/Vol] 1.70 mg/dL High 0.70-1.20 [facility] Serum glucose measurement (m ass/volume)Ordered By: Vincent Chan on 10-11-2024 Glucose [Mass/Vol] 117 mg/dL High 70-99 [facility] Serum or plasma calcium dex urement (mass/volume)Ordered By: Vincent Chan on 10-11-2024 Calcium [Mass/Vol] 8.9 mg/dL 7.6-11.0 [facility] Serum or plasma urea nitroge n measurement (mass/volume)Ordered By: Vincent Chan on 10-11-2024 Urea nitrogen [Mass/Vol] 28 mg/dL High 4-19 [facility] Sodium levelOrdered By: Dyllan Chan on 10-11-2024 Sodium [Moles/Vol] 134 mmol/L 133-145 [facility] Squamous epithelial cells de tection in urine sediment by light microscopyOrdered By: Brigido Alejandre on 10-11-2024 Epithelial cells.squamous LM Ql (Urine sed) 0-5 SEEN /hpf 5-10 [facility] TSH DL <= 0.005 mIU/L QnOrde red By: Brigido Alejandre on 10-11-2024 Thyroid Stimulating Hormone (TSH) 2.150 uIU/mL 0.300-4.200 [facility] TSH Qn 2.150 uIU/mL 0.300-4.200 [facility] Thyroid Stim Hormone (TSH)on 10-11-2024 TSH 2.150 uIU/mL Normal 0.300-4.200 [facility] Comment on above: Performed By: #### L 100.0100, L500.2500, L501.4021, L300.3900, L501.9520 ####[facility] [address] [place], [address] Troponin T.cardiac High sens itivity method [Mass/Vol]Ordered By: Vincent Chan on 10-11-2024 Troponin T High Sensitivity 2 Hour 99 ng/L High <14 [facility] Comment on above: Critical Result(s) C alled [facility] at: 1544 by: AMY Results read back by same. Troponin T High Sensitivity 82 ng/L High <14 [facility] Comment on above: Critical Result(s) C alled at 1236: by: DAHLIA ADAME TO GABBY. Results read back by same. Troponin T.cardiac [Mass/vol ume] in Serum or Plasma by High sensitivity methodOrdered By: Vincent Chan on 10-11-2024 Troponin T.cardiac High sensitivity method [Mass/Vol] 99 ng/L High <14 [facility] Comment on above: Critical Result(s) C alled [facility] at: 1544 by: AMY Results read back by same. Troponin T.cardiac High sensitivity method [Mass/Vol] 82 ng/L High <14 [facility] Comment on above: Critical Result(s) C alled at 1236: by: DAHLIA ADAME TO GABBY. Results read back by same. Urinalysis, Completeon 10-11 EPI,SQUAMOUS 0-5 SEEN Normal 5-10 [facility] Comment on above: Order Comment: QUOC CTOR TO SPECIFY Performed By: #### L 400.0001 ####[facility] [address] [place], [address] BACTERIA 0 SEEN Normal None Seen [facility] Comment on above: Order Comment: QUOC CTOR TO SPECIFY Performed By: #### L 400.0001 ####[facility] [address] [place], [place], [address] Mucus Ql (Urine sed) 0 SEEN Normal [facility] Comment on above: Order Comment: QUOC CTOR TO SPECIFY Performed By: #### L 400.0001 ####[facility] [address] [place], [address] RBC 0 SEEN Normal 0-5 [facility] Comment on above: Order Comment: QUOC CTOR TO SPECIFY Performed By: #### L 400.0001 ####[facility] [address] [place], [address] WBC 0 SEEN Normal 0-5 [facility] Comment on above: Order Comment: QUOC CTOR TO SPECIFY Performed By: #### L 400.0001 ####[facility] [address] [place], [place], [address] Urine blood detectionOrdered By: Brigido Alejandre on 10-11-2024 Urine Occult Blood Negative Negative [facility] Urine clarityOrdered By: Alicia Alejandre on 10-11-2024 Clarity (U) Sl. Cloudy Clear [facility] Urine color determinationOrd ered By: Brigido Alejandre on 10-11-2024 Color (U) Yellow Yellow [facility] Urine glucose detectionOrder ed By: Brigido Alejandre on 10-11-2024 Glucose Ql (U) Normal mg/dl Normal [facility] Urine leukocyte esterase det ection by dipstickOrdered By: Brigido Alejanrde on 10-11-2024 Leukocyte esterase Test strip Ql (U) Negative Negative [facility] Urine pHOrdered By: Brigido frost on 10-11-2024 pH (U) 6.0 [pH] 5.0 - 8.0 [facility] Urine sediment bacteria coun t by microscopy (number/high power field)Ordered By: Brigido Alejandre on 10-11-2024 Bacteria LM.HPF (Urine sed) [#/Area] 0 /[HPF] None Seen [facility] Urine specific gravity measu rementOrdered By: Brigido Alejandre on 10-11-2024 Specific gravity (U) [Rel density] 1.015 1.002-1.030 [facility] Urine urobilinogen measureme ntOrdered By: Brigido Alejandre on 10-11-2024 Urobilinogen Ql (U) Normal mg/dl Normal [facility] Urobilinogen Ql (U)Ordered B y: Brigido Pili on 10-11-2024 Urine Urobilinogen Normal mg/dl Normal [facility] White blood cell (WBC) count Ordered By: ED PROVIDER on 10-11-2024 WBC (Bld) [#/Vol] 6.8 10*3/uL 4.4-11.0 [facility] White blood cell countOrdere d By: Brigido Alejandre on 10-11-2024 Urine WBC 0 SEEN /hpf 0-5 [facility] White blood cell count 0 SEEN /hpf 0-5 [facility] Bacteria Ur Culton Bacteria identified Cx Nom (U) ORGANISM ID: 1 <10,000 CFU/ml Lactose negative gram negative bacilli Insignificant colony count. No further workup. Normal [facility] Comment on above: Performed By: #### 6 30-4 ####[facility] LABCLIA [id number] [place] [address] [place] CNOVon 10-08-2024 CNOV Office Visit (UCWSTR) REINIER ELIZABETH ([id number]) 1935 F NFR Date Time Provider Department 10/08/24 11:45 AM MICHAEL SULLIVAN WSTR During your visit today, we recorded the following information about you: Temperature Pulse Respiration Blood pressure 99.2 degrees 62/minute 16/minute 132/72 Weight 64.5 kg Michael Sullivan APRN.BILLING AND ACCOUNTING STAFF ASSISTANT 10/08/2024 1:07 PM Signed [facility] Subjective Reinier Elizabeth is a 88 year old female. Patient presents with: UTI HPI Reinier Elizabeth is a 88 year old female who presents with dysuria and frequency and pelvic pressure for the past 2 weeks. Was seen on 09/26 and prescribed Macrobid. After one dose she vomited. A new prescription for Cipro was sent to the pharmacy. Culture result showed resistance to ampicillin, ampicillin/sulbactam , and cipro. She finished the cipro and continued to have symptoms so was placed on Macrobid which again made her vomit. Review of Systems Constitutional: Negative for chills and fever. Respiratory: Negative. Cardiovascular: Negative. Genitourinary: Positive for dysuria, frequency and pelvic pain. Negative for hematuria. Musculoskeletal: Negative. Objective BP 132/72 Pulse 62 Temp 37.3 ?C (99.2 ?F) (Right Tympanic) Resp 16 Wt 64.5 kg (142 lb 3.2 oz) SpO2 95% BMI 26.01 kg/m? PAST MEDICAL HISTORY Diagnosis Date - Acquired keratoderma Lichen sclerosis - Anemia - Anticoagulant long-term use indication: stroke prevention atrial fibrillation - At risk for bleeding associated with anticoagulants HAS-BLED score = 2 (age, bleeding) - At risk for stroke [id number] = 4 (HTN, age2, female gender) - Benign neoplasm of colon - Bilateral lower extremity edema - BMI 29.0-29.9,adult 09/25/2015 - Circumscribed scleroderma - CKD (chronic kidney disease) - Disorder of bone and cartilage, unspecified - DICKERSON (dyspnea on exertion) - Elevated liver enzymes - Essential hypertension - Gastrointestinal hemorrhage, unspecified - Glaucoma - Hemorrhage of rectum and anus - Hernia - History of GI bleed - HLD (hyperlipidemia) - Lymphedema of both lower extremities - Near syncope - Obesity, unspecified - Osteoporosis, unspecified - Other and unspecified hyperlipidemia - PAF (paroxysmal atrial fibrillation) (HCC) - Palpitations - Permanent atrial fibrillation (HCC) - Personal history of colonic polyps 09/20/2014 - Pneumonia - Stage 3b chronic kidney disease (CKD) (HCC) - Sweat, sweating, excessive - Umbilical hernia 12/22/2012 - Unspecified essential hypertension PAST SURGICAL HISTORY Procedure Laterality Date - COLONOSCOPY FLX DX W/COLLJ SPEC WHEN PFRMD 01/09/2003 Colonoscopy w/ polypectomy - COLONOSCOPY FLX DX W/COLLJ SPEC WHEN PFRMD 10/10/2014 Colonoscopy - COLSC FLX W/RMVL OF TUMOR POLYP LESION SNARE TQ 10/24/2008 - HYSTEROSCOPY, DIAGNOSTIC (SEPARATE 08/21/1998 Hysteroscopy - LEFT HEART CATH,PERCUTANEOUS Left 02/05/2018 - LIG/TRNSXJ FLP TUBE ABDL/VAG APPR UNI/BI 1976 Tubal ligation - PAST SURGICAL HISTORY OF 09/2000 CARDIAC CATH. - PAST SURGICAL HISTORY OF 05/2012, 2018 Glaucoma - right eye left eye - [facility] . Dr Gao - REPAIR FIRST ABDOMINAL WALL HERNIA 12/14/2012 2cm defect - Parietex Composite ventral patch 6cm - STRESS TEST 04/14/2017 - PAWAN 02/04/2018 ALLERGIES Macrobid [Nitrofurantoin Monohyd/M-Cryst], Amantadine, Capoten [Captopril], Cephalexin, Erythromycin, Hctz [Thiazides], Ivp Dye [Iodine], and Norvasc [Amlodipine Besylate] MEDICATIONS - losartan (COZAAR) 50 mg tablet Take 1 tablet by mouth two times a day. - atorvastatin (LIPITOR) 20 mg tablet Take 1 tablet by mouth every 48 hours. - levothyroxine (LEVOXYL) 25 mcg tablet Take 1 tablet by mouth once daily. Take on empty stomach. For Thyroid - omeprazole (PRILOSEC) 40 mg capsule Take 1 capsule by mouth daily before breakfast. 1/2 hr before meal. - cyanocobalamin, vitamin B-12, (VITAMIN B12 ORAL) Take by mouth once daily. - denosumab (PROLIA SUBCUTANEOUS) Inject subcutaneously once every 6 months. - ferrous sulfate 325 mg (65 mg iron) tablet Take 1 tablet by mouth once daily. - hydrALAZINE (APRESOLINE) 10 mg tablet Take 1 tablet by mouth four times daily. - carvedilol (COREG) 12.5 mg tablet Take 12.5 mg by mouth two times a day with meals. - potassium chloride (K-TAB) 10 mEq tablet Take 1 tablet by mouth twice daily. - Spirometers and Accessories magdalena Use 3 times a day, each time blow into it for 10 reps - XARELTO 15 mg tablet Take 15 mg by mouth daily with dinner. - brimonidine (ALPHAGAN P) 0.15 % ophthalmic solution Use 1 Drop in the right eye twice daily. - timolol maleate (TIMOPTIC) 0.5 % ophthalmic solution Use 1 Drop in the right eye twice daily. - >Zippered Compression Knee High 30-40 mm custom CUSTOM MEASURE FOR KNEE HIGH ANGELO COMPRESSION (more content not included)... Normal [facility] UA DIP, URINE (POC)on 2024 BILIRUBIN UA (POCT) Negative Negative Edi [facility] CLARITY UA (POCT) Clear [facility] COLOR UA (POCT) Yellow [facility] GLUCOSE UA (POCT) Negative Negative mg/dL [facility] Hemoglobin Ql (U) Negative Negative [facility] Interpretation and review of laboratory results Abnormal [facility] KETONE UA (POCT) Negative Negative mg/dL [facility] LEUKOCYTES UA (POCT) Negative Negative [facility] NITRITE UA (POCT) Negative Negative [facility] PH UA (POCT) 6 4.5 - 8.0 [facility] Protein Ql (U) 30 mg/dL Abnormal Negative [facility] SPECIFIC GRAVITY UA (POCT) 1.02 1.005 - 1.030 [facility] UROBILINOGEN UA (POCT) 0.2 Michelle l E.U./dL [facility] Location:[address], [place], [place], [id number] [place] [address] [facility] DARSHANN Telephone (STEPH) REINIER ELIZABETH ([id number]) 1935 F NFR Date Time Provider Department 10/07/24 ANAY SCHULER During your visit today, we recorded the following information about you: Faustina Hoskins, JUMA 10/07/2024 12:57 PM Signed patients daughter is calling in stating that they believe patients UTI that she was treated for on 3/31 has returned. patient is having pressure, and urgency, and just feeling rosario crummy as she did on the . daughter does not feel patient can come into the office and is requesting that something be called into [facility]. please review and advise, samina Germain needs called back with information Anay Schuler MD 10/07/2024 2:05 PM Signed Rx macrobid to patient. Regards, Yany Ibarra MD, MA 10/07/2024 2:30 PM Signed The following approved medication requests have been transmitted electronically. Requested Prescriptions Signed Prescriptions Disp Refills nitrofurantoin monohydrate and macrocrystal (MACROBID) 100 mg capsule 14 capsule 0 Sig: Take 1 capsule by mouth two times a day for 7 days. Authorizing Provider: ANAY SCHULER Samina Germain notified. Yany Nieto MA Allergies As of Date: 10/07/2024 Noted Allergy Reaction AMANTADINE 05/09/2005 2 - Rash CAPOTEN (CAPTOPRIL) 05/09/2005 2 - Rash CEPHALEXIN 05/09/2005 2 - Rash ERYTHROMYCIN 05/09/2005 2 - Rash HCTZ (THIAZIDES) 03/26/2015 14 - Other: See Comments Comments: leg cramps IVP DYE (IODINE) 05/12/2005 2 - Rash NORVASC (AMLODIPINE BESYLATE) 08/27/2017 7 - Swelling Date Reviewed: 09/26/2024 Reviewed by: Haydee Mccauley MA - Fully Assessed Reason for Visit: UTI [116] Order(s):nitrofurant oin monohydrate and macrocrystal (MACROBID) 100 mg capsuleTake 1 capsule by mouth two times a day for 7 days.Disp: 14 capsuleRfl: 0 Prescriptions as of 10/07/2024 - nitrofurantoin monohydrate and macrocrystal (MACROBID) 100 mg capsule Take 1 capsule by mouth two times a day for 7 days. - losartan (COZAAR) 50 mg tablet Take 1 tablet by mouth two times a day. - atorvastatin (LIPITOR) 20 mg tablet Take 1 tablet by mouth every 48 hours. - levothyroxine (LEVOXYL) 25 mcg tablet Take 1 tablet by mouth once daily. Take on empty stomach. For Thyroid - omeprazole (PRILOSEC) 40 mg capsule Take 1 capsule by mouth daily before breakfast. 1/2 hr before meal. - cyanocobalamin, vitamin B-12, (VITAMIN B12 ORAL) Take by mouth once daily. - denosumab (PROLIA SUBCUTANEOUS) Inject subcutaneously once every 6 months. - vibegron (GEMTESA) 75 mg tablet Take 1 tablet by mouth once daily. - hydrOXYzine HCl (ATARAX) 25 mg tablet Take 1 tablet by mouth every 4 hours as needed for itching/rash. - furosemide (LASIX) 20 mg tablet Take 1 tablet by mouth every other day. - ferrous sulfate 325 mg (65 mg iron) tablet Take 1 tablet by mouth once daily. - hydrALAZINE (APRESOLINE) 10 mg tablet Take 1 tablet by mouth four times daily. - carvedilol (COREG) 12.5 mg tablet Take 12.5 mg by mouth two times a day with meals. - potassium chloride (K-TAB) 10 mEq tablet Take 1 tablet by mouth twice daily. - Spirometers and Accessories magdalena Use 3 times a day, each time blow into it for 10 reps - XARELTO 15 mg tablet Take 15 mg by mouth daily with dinner. - brimonidine (ALPHAGAN P) 0.15 % ophthalmic solution Use 1 Drop in the right eye twice daily. - timolol maleate (TIMOPTIC) 0.5 % ophthalmic solution Use 1 Drop in the right eye twice daily. - >Zippered Compression Knee High 30-40 mm custom CUSTOM MEASURE FOR KNEE HIGH ANGELO COMPRESSION STOCKINGS, 30-40 MM, WITH ZIPPERS PLEASE. IF UNABLE, PLEASE REFER TO [facility]. DX: EDEMA - latanoprost (XALATAN) 0.005 % ophthalmic solution 1 Drop daily at bedtime. - TRAVATAN Z 0.004 % Drop daily at bedtime. - Cholecalciferol, Vitamin D3, 2,000 unit ORAL Cap Take one(1) tablet two(2) times daily. 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 [facility] CNPN Telephone (INTMWS) REINIER ELIZABETH ([id number]) 1935 F NFR Date Time Provider Department 09/27/24 ANAY SCHULER INTWS During your visit today, we recorded the following information about you: Yolette Pérez, RN 09/27/2024 10:37 AM Signed Patient's daughter Murtaza calls and reports that patient took first dose of Macrobid for UTI yesterday. Murtaza reports that patient was vomiting and shaky all evening last night after taking medication. Patient is feeling better this morning and not vomited yet this morning. Murtaza has not given Macrobid to patient yet due to patient getting sick last night. Murtaza asking if provider wants to prescribe a different antibiotic? Patient has had UTI symptoms since Thursday. Patient was seen in office yesterday. Culture is still pending. Latest Ref Rng 09/26/2024 GLUCOSE UA (POCT) Negative mg/dL Negative BILIRUBIN UA (POCT) Negative Negative KETONE UA (POCT) Negative mg/dL Negative SPECIFIC GRAVITY UA (POCT) 1.005 - 1.030 1.020 HEMOGLOBIN/BLOOD UA (POCT) Negative Trace-intact ! PH UA (POCT) 4.5 - 8.0 5.5 PROTEIN UA (POCT) Negative mg/dL 30 ! UROBILINOGEN UA (POCT) Normal E.U./dL 0.2 NITRITE UA (POCT) Negative Negative LEUKOCYTES UA (POCT) Negative Moderate ! COLOR UA (POCT) Yellow CLARITY UA (POCT) Clear Please review and advise, JUMA Pearson Chitra, MD 09/27/2024 1:04 PM Signed I sent a new rx, cipro. I hope that helps Regards, Jazmine Denney MD, LPN 09/27/2024 4:21 PM Signed Called and spoke to Murtaza patient daughter, voiced understanding Jazmine Head LPN September 27, 2024 4:21 PM Allergies As of Date: 09/27/2024 Noted Allergy Reaction AMANTADINE 05/09/2005 2 - Rash CAPOTEN (CAPTOPRIL) 05/09/2005 2 - Rash CEPHALEXIN 05/09/2005 2 - Rash ERYTHROMYCIN 05/09/2005 2 - Rash HCTZ (THIAZIDES) 03/26/2015 14 - Other: See Comments Comments: leg cramps IVP DYE (IODINE) 05/12/2005 2 - Rash NORVASC (AMLODIPINE BESYLATE) 08/27/2017 7 - Swelling Date Reviewed: 09/26/2024 Reviewed by: Haydee Mccauley MA - Fully Assessed Reason for Visit: Patient Update [1234] Order(s):ciprofloxac in HCl (CIPRO) 250 mg tabletTake 1 tablet by mouth two times a day for 5 days.Disp: 10 tabletRfl: 0 Prescriptions as of 09/27/2024 - ciprofloxacin HCl (CIPRO) 250 mg tablet Take 1 tablet by mouth two times a day for 5 days. - nitrofurantoin monohydrate and macrocrystal (MACROBID) 100 mg capsule Take 1 capsule by mouth two times a day for 5 days. - losartan (COZAAR) 50 mg tablet Take 1 tablet by mouth two times a day. - atorvastatin (LIPITOR) 20 mg tablet Take 1 tablet by mouth every 48 hours. - levothyroxine (LEVOXYL) 25 mcg tablet Take 1 tablet by mouth once daily. Take on empty stomach. For Thyroid - omeprazole (PRILOSEC) 40 mg capsule Take 1 capsule by mouth daily before breakfast. 1/2 hr before meal. - cyanocobalamin, vitamin B-12, (VITAMIN B12 ORAL) Take by mouth once daily. - denosumab (PROLIA SUBCUTANEOUS) Inject subcutaneously once every 6 months. - vibegron (GEMTESA) 75 mg tablet Take 1 tablet by mouth once daily. - hydrOXYzine HCl (ATARAX) 25 mg tablet Take 1 tablet by mouth every 4 hours as needed for itching/rash. - furosemide (LASIX) 20 mg tablet Take 1 tablet by mouth every other day. - ferrous sulfate 325 mg (65 mg iron) tablet Take 1 tablet by mouth once daily. - hydrALAZINE (APRESOLINE) 10 mg tablet Take 1 tablet by mouth four times daily. - carvedilol (COREG) 12.5 mg tablet Take 12.5 mg by mouth two times a day with meals. - potassium chloride (K-TAB) 10 mEq tablet Take 1 tablet by mouth twice daily. - Spirometers and Accessories magdalena Use 3 times a day, each time blow into it for 10 reps - XARELTO 15 mg tablet Take 15 mg by mouth daily with dinner. - brimonidine (ALPHAGAN P) 0.15 % ophthalmic solution Use 1 Drop in the right eye twice daily. - timolol maleate (TIMOPTIC) 0.5 % ophthalmic solution Use 1 Drop in the right eye twice daily. - >Zippered Compression Knee High 30-40 mm custom CUSTOM MEASURE FOR KNEE HIGH ANGELO COMPRESSION STOCKINGS, 30-40 MM, WITH ZIPPERS PLEASE. IF UNABLE, PLEASE REFER TO [facility]. DX: EDEMA - latanoprost (XALATAN) 0.005 % ophthalmic solution 1 Drop daily at bedtime. - TRAVATAN Z 0.004 % Drop daily at bedtime. - Cholecalciferol, Vitamin D3, 2,000 unit ORAL Cap Take one(1) tablet two(2) times daily. 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 Normal [facility] Bacteria Ur Culton Bacteria identified Cx Nom (U) ORGANISM ID: 1 >=100,000 CFU/ml Escherichia coli ORGANISM ID: 1 (ESCHERICHIA COLI) ANTIBIOTIC INTERPRETATION AVE STATUS REFERENCE RANGE Ampicillin R >=32 F Susceptible <=8 , Intermediate >8 , Resistant >16 Cefazolin S <=4 F Susceptible 0-16 , Intermediate <0 or >16 , Resistant >16 For uncomplicated urinary tract infections, cefazolin results can be used to predict susceptibility or resistance to cephalexin. Ceftriaxone S <=1 F Susceptible <=1 , Intermediate >1 , Resistant >=4 Cefepime S <=1 F Susceptible <=2 , Susceptible-Dose Dependent >2 , Resistant >=16 Ertapenem S <=0.5 F Susceptible <=0.5 , Intermediate >.5 , Resistant >1 Meropenem S <=0.25 F Susceptible <=1 , Intermediate >1 , Resistant >2 Ampicillin/Sulbact R >=32 F Susceptible <=8 , Intermediate >8 , Resistant >16 Piperacillin/Tazobac S 8 F Susceptible <16 , Susceptible-Dose Dependent >=16 , Resistant >=32 Gentamicin S <=1 F Susceptible <=2 , Intermediate >2 , Resistant >=8 Tobramycin S <=1 F Susceptible <4 , Intermediate >=4 , Resistant >=8 Trimeth sulfameth S <=20 F Susceptible <=40 , Resistant >40 Ciprofloxacin R >=4 F Susceptible <0.5 , Intermediate >=.5 , Resistant >=1 Nitrofurantoin S <=16 F Susceptible <=32 , Intermediate >32 , Resistant >64 Abnormal [facility] Comment on above: Performed By: #### 5 7021-8 #### [facility] CLIA [id number] [address] [place] [address] OF [facility] CNOVon 09-26-2024 CNOV Office Visit (INTMWS) ELIZABETHREINIER Mikayla ([id number]) 1935 F NFR Date Time Provider Department 09/26/24 1:40 PM SILVIO DRAKE INTSebastienWS During your visit today, we recorded the following information about you: Temperature Pulse Respiration Blood pressure 97.1 degrees 60/minute 16/minute 138/82 Weight 63.5 kg Silvio Drake APRN.BILLING AND ACCOUNTING STAFF ASSISTANT 09/26/2024 2:11 PM Signed CC: Patient presents with: Voiding Pressure Studies Urinary Frequency: Urinary frequency, pressure x 2 days HPI Reinier Elizabeth is a 88 year old female who presents today for increased urinary frequency. Since Thursday night she has had increased urination with pain with urination and dark urine. Denies fever, chills, nausea, vomiting, bowel changes, blood in urine, shortness of breath, or chest pain. Took a home test today that indicated a urinary tract infection. No recent antibiotic use. REVIEW OF SYSTEMS See HPI PAST MEDICAL HISTORY Diagnosis Date Acquired keratoderma Lichen sclerosis Anemia Anticoagulant long-term use indication: stroke prevention atrial fibrillation At risk for bleeding associated with anticoagulants HAS-BLED score = 2 (age, bleeding) At risk for stroke [id number] = 4 (HTN, age2, female gender) Benign [...] Glaucoma - right eye left eye - [facility] . Dr Gao REPAIR FIRST ABDOMINAL WALL HERNIA 12/14/2012 2cm defect - Parietex Composite ventral patch 6cm STRESS TEST 04/14/2017 PAWAN 02/04/2018 ALLERGIES Amantadine, Capoten [Captopril], Cephalexin, Erythromycin, Hctz [Thiazides], Ivp Dye [Iodine], and Norvasc [Amlodipine Besylate] MEDICATIONS losartan (COZAAR) 50 mg tablet Take 1 tablet by mouth two times a day. atorvastatin (LIPITOR) 20 mg tablet Take 1 tablet by mouth every 48 hours. levothyroxine (LEVOXYL) 25 mcg tablet Take 1 tablet by mouth once daily. Take on empty stomach. For Thyroid omeprazole (PRILOSEC) 40 mg capsule Take 1 capsule by mouth daily before breakfast. 1/2 hr before meal. cyanocobalamin, vitamin B-12, (VITAMIN B12 ORAL) Take by mouth once daily. denosumab (PROLIA SUBCUTANEOUS) Inject subcutaneously once every 6 months. vibegron (GEMTESA) 75 mg tablet Take 1 tablet by mouth once daily. hydrOXYzine HCl (ATARAX) 25 mg tablet Take 1 tablet by mouth every 4 hours as needed for itching/rash. (Patient not taking: Reported on 08/02/2024) furosemide (LASIX) 20 mg tablet Take 1 tablet by mouth every other day. (Patient taking differently: Take 20 mg by mouth as needed.) ferrous sulfate 325 mg (65 mg iron) tablet Take 1 tablet by mouth once daily. hydrALAZINE (APRESOLINE) 10 mg tablet Take 1 tablet by mouth four times daily. carvedilol (COREG) 12.5 mg tablet Take 12.5 mg by mouth two times a day with meals. potassium chloride (K-TAB) 10 mEq tablet Take [...] IF UNABLE, PLEASE REFER TO [facility]. DX: EDEMA latanoprost (XALATAN) 0.005 % ophthalmic solution 1 Drop daily at bedtime. TRAVATAN Z 0.004 % Drop daily at bedtime. Cholecalciferol, Vi (more content not included)... Normal [facility] UA DIP, URINE (POC)on 2024 BILIRUBIN UA (POCT) Negative Negative [facility] CLARITY UA (POCT) Clear [facility] COLOR UA (POCT) Yellow [facility] GLUCOSE UA (POCT) Negative Negative mg/dL [facility] Hemoglobin Ql (U) Trace-intact Abnormal Negative [facility] Interpretation and review of laboratory results Abnormal [facility] KETONE UA (POCT) Negative Negative mg/dL [facility] LEUKOCYTES UA (POCT) Moderate Abnormal Negative [facility] NITRITE UA (POCT) Negative Negative [facility] PH UA (POCT) 5.5 4.5 - 8.0 [facility] Protein Ql (U) 30 mg/dL Abnormal Negative [facility] SPECIFIC GRAVITY UA (POCT) 1.02 1.005 - 1.030 [facility] UROBILINOGEN UA (POCT) 0.2 Michelle l E.U./dL [facility] Location:[address], [place], [place], [address] [place] [address] POINT OF CARE [facility] ALDOSTERONE/DIRECT RENIN RAT IOon 09-12-2024 STEVEN RENIN RATIO 5.5 High <3.8 [facility] Comment on above: Order Comment: Claudia vilchis Type: BLOOD SPECIMEN Ordering Facility: [facility] Address: [address] [place] [address] Result Comment: A ra mary ellen of aldosterone in ng/dL to direct renin in pg/mL greater than or equal to 3.8 is a positive screening test result for primary aldosteronism, when aldosterone is greater than or equal to 15 ng/dL. Performed By: #### A LDREN #### [facility] CLIA [id number] [address] [place] [address] [place] Aldosterone [Mass/Vol] 13.7 ng/dL Normal 0.0-<35.4 [facility] Comment on above: Order Comment: Claudia vilchis Type: BLOOD SPECIMEN Ordering Facility: [facility] Address: [address] [place] [address] Result Comment: The reference interval for serum/plasma aldosterone is based on a normal sodium intake and upright position. High sodium intake may suppress aldosterone and low sodium intake may increase aldosterone. The supine reference interval is <23.7 ng/dL. A ratio of aldosterone in ng/dL to direct renin in pg/mL greater than or equal to 3.8 is a positive screening test result for primary aldosteronism, when aldosterone is greater than or equal to 15 ng/dL. Performed By: #### A LDREN #### [facility] CLIA [id number] [address] [place] [address] [place] DIRECT RENIN 2.5 pg/mL Low 3.6-81.6 [facility] Comment on above: Order Comment: Speci men Type: BLOOD SPECIMEN Ordering Facility: [facility] Address: [address] [place] [address] Result Comment: The reference interval for direct renin is based on an upright position. The supine reference intervals are: Age <41 years: 3.2-33.2 pg/mL Age >=41 years: 2.5-45.1 pg/mL A ratio of aldosterone in ng/dL to direct renin in pg/mL greater than or equal to 3.8 is a positive screening test result for primary aldosteronism, when aldosterone is greater than or equal to 15 ng/dL. Performed By: #### A LDREN #### [facility] CLIA [id number] [address] [place] [address] [place] PATIENT UPRIGHT OR SUPINE Upright Normal [facility] Comment on above: Order Comment: Claudia vilchis Type: BLOOD SPECIMEN Ordering Facility: [facility] Address: [address] [place] [address] Performed By: #### A LDREN #### [facility] CLIA [id number] [address] [place] [address] [place] Performed By: #### 2 4323-8, 2132-9 #### [facility] CLIA [id number] [address] [place] [address] [place] Aldost SerPl-mCncon 09-13-19 25 Aldosterone [Mass/Vol] 13.5 ng/dL Normal 0.0-<35.4 [facility] Comment on above: Order Comment: Chrisi men Type: BLOOD SPECIMEN Ordering Facility: [facility] Address: [address] [place] [address] Result Comment: The reference interval for serum/plasma aldosterone is based on a normal sodium intake and upright position. High sodium intake may suppress aldosterone and low sodium intake may increase aldosterone. The supine reference interval is <23.7 ng/dL. A ratio of aldosterone in ng/dL to direct renin in pg/mL greater than or equal to 3.8 is a positive screening test result for primary aldosteronism, when aldosterone is greater than or equal to 15 ng/dL. Performed By: #### 2 43209-03, 2132-02 #### [facility] CLIA [id number] [address] [place] [address] [place] Basic metabolic 2000 panelon 09-12-2024 Anion gap [Moles/Vol] 12 mmol/L Normal 8-15 [facility] Comment on above: Order Comment: Speci men Type: BLOOD SPECIMEN Ordering Facility: [facility] Address: [address] [place] [address] Performed By: #### 2 4323-01, 2132-02 #### [facility] CLIA [id number] [address] [place] [address] [place] Calcium [Mass/Vol] 9.3 mg/dL Normal 8.5-10.2 [facility] Comment on above: Order Comment: Speci men Type: BLOOD SPECIMEN Ordering Facility: [facility] Address: [address] [place] [address] Performed By: #### 2 4323-01, 2132-02 #### [facility] CLIA [id number] [address] [place] [address] [place] Chloride [Moles/Vol] 106 mmol/L Normal 98-107 [facility] Comment on above: Order Comment: Speci men Type: BLOOD SPECIMEN Ordering Facility: [facility] Address: [address] [place] [address] Performed By: #### 2 4323-01, 2132-02 #### [facility] CLIA [id number] [address] [place], [place] [id number] [place] CO2 [Moles/Vol] 21 mmol/L Low 22-30 [facility] Comment on above: Order Comment: Speci men Type: BLOOD SPECIMEN Ordering Facility: [facility] Address: [address] [place] [address] Performed By: #### 2 43209-03, 2132-02 #### [facility] CLIA [id number] [address] [place] [address] [place] Creatinine [Mass/Vol] 1.42 mg/dL High 0.58-0.96 [facility] Comment on above: Order Comment: Speci men Type: BLOOD SPECIMEN Ordering Facility: [facility] Address: [address] [place] [address] Performed By: #### 2 4323-01, 2132-02 #### [facility] CLIA [id number] [address] [place] [address] [place] Creatinine and Glomerular filtration rate.predicted panel (S/P/Bld) 36 mL/min/1.73m??? Low >=60 [facility] Comment on above: Order Comment: Speci men Type: BLOOD SPECIMEN Ordering Facility: [facility] Address: [address] [place] [address] Result Comment: Lien mated Glomerular Filtration Rate (eGFR) is calculated using the 2020 CKD-EPI creatinine equation. This equation utilizes serum creatinine, sex, and age as parameters. The creatinine assay has traceable calibration to isotope dilution-mass spectrometry. Refer to KDIGO guidelines for clinical interpretation. In patients with unstable renal function, e.g. those with acute kidney injury, the eGFR may not accurately reflect actual GFR. Performed By: #### 2 4323, 2132-02 #### [facility] CLIA [id number] [address] [place], [place] [id number] [place] Glucose [Mass/Vol] 106 mg/dL High 74-99 [facility] Comment on above: Order Comment: Claudia vilchis Type: BLOOD SPECIMEN Ordering Facility: [facility] Address: [address] [place] [address] Result Comment: The [place] Diabetes Association (ADA) provides guidance for cutoff values for fasting glucose and random glucose. The ADA defines fasting as no caloric intake for at least 8 hours. Fasting plasma glucose results between 100 to 125 mg/dL indicate increased risk for diabetes (prediabetes). Fasting plasma glucose results greater than or equal to 126 mg/dL meet the criteria for diagnosis of diabetes. In the absence of unequivocal hyperglycemia, results should be confirmed by repeat testing. In a patient with classic symptoms of hyperglycemia or hyperglycemic crisis, random plasma glucose results greater than or equal to 200 mg/dL meet the criteria for diagnosis of diabetes. Reference: Standards of Medical Care in Diabetes 2016, [place] [employer]. Diabetes Care. 2016.39(Suppl 1). Performed By: #### 2 4323-01, 2132-02 #### [facility] CLIA [id number] [address] [place] [address] [place] Potassium [Moles/Vol] 4.1 mmol/L Normal 3.7-5.1 [facility] Comment on above: Order Comment: Claudia vilchis Type: BLOOD SPECIMEN Ordering Facility: [facility] Address: [address] [place] [address] Performed By: #### 2 4323-01, 2132-02 #### [facility] CLIA [id number] [address] [place] [address] [place] Sodium [Moles/Vol] 139 mmol/L Normal 136-144 [facility] Comment on above: Order Comment: Claudia vilchis Type: BLOOD SPECIMEN Ordering Facility: [facility] Address: [address] [place] [address] Performed By: #### 2 4323-01, 2132-02 #### [facility] CLIA [id number] [address] [place] [address] [place] Urea nitrogen [Mass/Vol] 28 mg/dL High 7-21 [facility] Comment on above: Order Comment: Speci men Type: BLOOD SPECIMEN Ordering Facility: [facility] Address: [address] [place] [address] Performed By: #### 2 4323-8, 2132-02 #### [facility] CLIA [id number] [address] [place] [address] [place] DIRECT RENIN PLASMAon 2024 DIRECT RENIN 2.6 pg/mL Low 3.6-81.6 [facility] Comment on above: Order Comment: Claudia men Type: BLOOD SPECIMEN Ordering Facility: [facility] Address: [address] [place] [address] Result Comment: A ra mary ellen of aldosterone in ng/dL to direct renin in pg/mL greater than or equal to 3.8 is a positive screening test result for primary aldosteronism, when aldosterone is greater than or equal to 15 ng/dL. The reference interval for direct renin is based on an upright position. The supine reference intervals are: Age <41 years: 3.2-33.2 pg/mL Age >=41 years: 2.5-45.1 pg/mL Performed By: #### 2 4323-8, 2132-02 #### [facility] CLIA [id number] [address] [place] [address] [place] Magnesium SerPl-mCncon 09-12 Magnesium [Mass/Vol] 2.0 mg/dL Normal 1.7-2.3 [facility] Comment on above: Order Comment: Claudia men Type: BLOOD SPECIMEN Ordering Facility: [facility] Address: [address] [place] [address] Performed By: #### 2 4323-8, 2132-02 #### [facility] CLIA [id number] [address] [place] [address] [place] CNOVon 09-09-2024 CNOV Office Visit (INTMWS) REINIER ELIZABETH ([id number]) 1935 F NFR Date Time Provider Department 09/09/24 3:20 PM ANAY SCHULER During your visit today, we recorded the following information about you: Pulse Respiration Blood pressure Weight 58/minute 12/minute 122/70 63 kg Anay Schuler MD 09/09/2024 5:28 PM Signed Reason for Visit Reinier is an 88-year-old female with a history of HTN and atrial fibrillation, accompanied by her daughter, presenting for follow-up after a recent ER visit for accelerated hypertension. HPI Reinier is an 88-year-old female with a history of HTN and atrial fibrillation, accompanied by her daughter, presenting for follow-up after a recent ER visit for accelerated hypertension. Accelerated Hypertension: - Recent ER visit for accelerated hypertension; BP reached 223/107 mmHg. - ER treatment included clonidine; BP was still in the 180s upon discharge. - Noted BP spike to 190 mmHg during a vascular test on her legs, leading to the ER visit. - BP readings fluctuate, often higher at night: - 08/29: 129/76 mmHg (morning), 188 mmHg (evening). - 08/30: 168 mmHg (morning and afternoon). - 08/31: 184 mmHg (1100), 180 mmHg (10 minutes later). - 09/01: 178 mmHg (morning), 186 mmHg (noon). - 09/02: 211 mmHg. - 09/06: 159 mmHg (1100). - 09/07: 137 mmHg (1100), 184 mmHg (evening). - Today: 122/70 mmHg. - Daughter monitors BP and HR; noted HR as low as 41 bpm. - No associated headaches or pain. - Recent increase in hydralazine to 50 mg TID; previously on 25 mg. - Takes Coreg 12.5 mg at 0900 and 2300, Cozaar, and potassium daily. - Diet includes grapes, bananas, oatmeal, and occasional macaroni and cheese; avoids adding salt. - Exercises regularly, including cycling. Atrial Fibrillation: - History of atrial fibrillation; taking Eliquis. - Daughter noted irregular HR on her watch, prompting ER visit. - ER EKG showed an extra little arrhythmia. - No recent hot flashes. Social History Tobacco Use Smoking status: Former Current packs/day: 0.00 Types: Cigarettes Start date: 07/06/1971 Quit date: 07/06/1976 Years since quittin.2 Smokeless tobacco: Never Tobacco comments: Quit 1969' 4-5 cig per day Vaping Use Vaping status: Never Used Substance Use Topics Alcohol use: No Drug use: No Past medical history, appointments, medications, allergies reviewed. Pertinent Lab/Diagnostic Studies are reviewed and discussed today @[facility] Health Maintenance Depression Screening Anxiety Screening Shingrix Vaccine(1 of 2) RSV Vaccine(1 - 1-dose 75+ series) DTaP,Tdap,Td Vaccine(3 - Td or Tdap) Influenza Vaccine(1) Covid-19 Vaccine( season) Advance Directive Discussion@ Review Of Systems Constitutional: (+) fatigue Head: (-) headache Physical Exam BP 122/70 Pulse (!) 58 Resp 12 Wt 63 kg (139 lb) SpO2 97% BMI 25.42 kg/m? GENERAL: NAD, alert and oriented. SKIN: Unremarkable, no rash or skin lesions. HEAD: Normocephalic. EYES: PERRLA, EOMI, conjunctiva clear. EARS: External ears normal, canals clear, TM's normal. NOSE/SINUSES: Nares normal. Septum midline. OROPHARYNX: Lips, mucosa, and tongue normal, good dentition. No oral lesions noted. NECK: Supple, no lymphadenopathy, normal thyroid, no carotid bruits. LUNGS: Clear to auscultation bilaterally, no wheezes/rhonchi/rale s. HEART: Regular rate and rhythm, no murmurs. No ectopy. EXTREMITIES: Normal, no deformities, no skin discoloration, no edema. NEURO: Awake, alert and oriented x3, cranial nerves II-XII grossly intact, normal gait, no involuntary motions. Assessment and Plan 1. Accelerated hypertension (I10) 2. Uncontrolled hypertension (I10) - Recent ER visit for accelerated hypertension; treated with clonidine. - Current antihypertensive regimen includes carvedilol 12.5 mg BID, losartan, and hydralazine 50 mg TID (recently increased from 25 mg TID). - Blood pressure readings show significant fluctuations, with higher readings noted in the evening. - Discussed potential addition of spironolactone to manage fluctuations; explained its mechanism as a potassium-sparing diuretic and its effects on aldosterone. - Ordered blood work to evaluate adrenal function and aldosterone levels. - Advised patient to continue current medication regimen and monitor blood pressure closely. - Patient's daughter to keep me updated on blood pressure readings every few days. 3. Paroxysmal atrial fibrillation (HCC) (I48.0) - History of paroxysmal atrial fibrillation; currently managed with carvedilol and Xarelto. - Recent episodes of irregular heart rate noted by patient's daughter using a smartwatch; EKG in ER showed extra little arrhythmia. - No current symptoms of palpitations or dyspnea. - Continue current medications including Xarelto. - Will perform an EKG today to ass (more content not included)... Normal [facility] 12 Lead EKGon 08-27-2024 12 Lead EKG Normal [facility] BUN/creatinine ratioOrdered By: Vincent Chan on 08-27-2024 Urea nitrogen/Creatinine [Mass ratio] 18.5 mg/mg 10- [facility] Basic Metabolic Profile (BMP )on 08-27-2024 Anion gap [Moles/Vol] 12 mmol/L Normal 5-15 [facility] Comment on above: Performed By: #### L 500.2500 ####[facility] [address] [facility] [place], [address] BUN/CRE 18.5 RATIO Normal - [facility] Comment on above: Performed By: #### L 500.2500 ####[facility] [address] [place], [address] Calcium [Mass/Vol] 9.1 mg/dL Normal 7.6-11.0 [facility] Comment on above: Performed By: #### L 500.2500 ####[facility] [address] [place], [address] Chloride [Moles/Vol] 107 mmol/L Normal 96-108 [facility] Comment on above: Performed By: #### L 500.2500 ####[facility] [address] [place], [address] CO2 [Moles/Vol] 21.7 mmol/L Low 22.0-29.0 [facility] Comment on above: Performed By: #### L 500.2500 ####[facility] [address] [place], [address] Creatinine [Mass/Vol] 1.44 mg/dL High 0.70-1.20 [facility] Comment on above: Performed By: #### L 500.2500 ####[facility] [address] [place], [address] ECRCL 24.43 ml/min Normal [facility] Comment on above: Performed By: #### L 500.2500 ####[facility] [address] [place], [address] GFR/1.73 sq M.predicted among non-blacks MDRD (S/P/Bld) [Vol rate/Area] 35 mL/min/{1.73_m2} Low >60 [facility] Comment on above: Result Comment: mL/m in/1.73m2 CKD-EPI Creatinine Equation (2020) Performed By: #### L 500.2500 ####[facility] [address] [place], [address] Glucose [Mass/Vol] 104 mg/dL High 70-99 [facility] Comment on above: Performed By: #### L 500.2500 ####[facility] [address] [place], [address] Potassium [Moles/Vol] 4.1 mmol/L Normal 3.3-5.1 [facility] Comment on above: Performed By: #### L 500.2500 ####[facility] [address] [place], [address] Sodium [Moles/Vol] 140 mmol/L Normal 133-145 [facility] Comment on above: Performed By: #### L 500.2500 ####[facility] [address] [place], [place], [address] Urea nitrogen [Mass/Vol] 27 mg/dL High 4-19 [facility] Comment on above: Performed By: #### L 500.2500 ####[facility] [address] [place], [place], [address] Carbon dioxide measurementOr dered By: Vincent Chan on 08-27-2024 CO2 [Moles/Vol] 21.7 mmol/L Low 22.0-29.0 [facility] Chloride measurementOrdered By: Vincent Chan on 08-27-2024 Chloride [Moles/Vol] 107 mmol/L 96-108 [facility] Emergency Department Summary on 08-27-2024 Emergency Department Summary Normal [facility] Estimation of creatinine asael aranceOrdered By: Vincent Chan on 08-27-2024 Estimated Creatinine Clearance Calc 24.43 ml/min [facility] GFR/1.73 sq M.predicted jennifer g non-blacks MDRD (S/P/Bld) [Vol rate/Area]Ordered By: Vincent Chan on 08-27-2024 Estimated GFR (MDRD) Non-Af Amer 35 Low >60 [facility] Comment on above: mL/min/1.73m2 CKD-EP I Creatinine Equation (2020) Glomerular filtration rate ( GFR) estimation/1.73 sq m using serum, plasma, or whole bOrdered By: Vincent Chan on 08-27-2024 GFR/1.73 sq M.predicted among non-blacks MDRD (S/P/Bld) [Vol rate/Area] 35 mL/min/{1.73_m2} Low >60 [facility] Comment on above: mL/min/1.73m2 CKD-EP I Creatinine Equation (2020) Serum creatinine measurement (mass/volume)Ordered By: Vincent Chan on 08-27-2024 Creatinine [Mass/Vol] 1.44 mg/dL High 0.70-1.20 [facility] Serum glucose measurement (m ass/volume)Ordered By: Vincent Chan on 08-27-2024 Glucose [Mass/Vol] 104 mg/dL High 70-99 [facility] Serum or plasma anion gap de termination (moles/volume)Ordered By: Vincent Chan on 08-27-2024 Anion gap [Moles/Vol] 12 mmol/L 5-15 [facility] Serum or plasma calcium dex urement (mass/volume)Ordered By: Vincent Chan on 08-27-2024 Calcium [Mass/Vol] 9.1 mg/dL 7.6-11.0 [facility] Serum or plasma potassium me asurementOrdered By: Vincent Chan on 08-27-2024 Potassium [Moles/Vol] 4.1 mmol/L 3.3-5.1 [facility] Serum or plasma sodium measu rement (moles/volume)Ordered By: Vincent Chan on 08-27-2024 Sodium [Moles/Vol] 140 mmol/L 133-145 [facility] Serum or plasma urea nitroge n measurement (mass/volume)Ordered By: Vincent Chan on 08-27-2024 Urea nitrogen [Mass/Vol] 27 mg/dL High 4-19 [facility] PVR LEG RIO VAS LABon 2024 PVR LEG RIO VAS LAB Non-Invasive Vascular Laboratory [facility] Lower Extremity Arterial Physiology Study Bilateral/Complete Date of service/time: 08/26/2024 11:03:09 AM Name: MRS. REINIER ELIZABETH Date of : 1935 Age: 88 years Gender: F Clinical Indication Claudication. TECHNIQUE -------- An arterial physiological examination was performed, including measurement of blood pressures using continuous wave Doppler and recording of plethysmographic with or without Doppler waveforms at the below-mentioned limb segments. FINDINGS -------- RIGHT SIDE AT REST Right Doppler Waveforms Dorsalis pedis: Multiphasic. Post tibial: Multiphasic. Right Pressures Brachial: 197 mmHg Ankle dorsalis pedis: 222 mmHg RAFI: 1.13 Ankle posterior tibial: 230 mmHg RAFI: 1.17 Digit: 168 mmHg Right PVR Waveforms High thigh: Normal. Low thigh: Normal. Calf: Normal. Ankle: Normal. Transmetatarsal: Normal. Digit: Normal. LEFT SIDE AT REST Left Doppler Waveforms Dorsalis pedis: Multiphasic. Post tibial: Multiphasic. Left Pressures Brachial: 195 mmHg Ankle dorsalis pedis: 226 mmHg RAFI: 1.15 Ankle posterior tibial: 239 mmHg RAFI: 1.21 Digit: 167 mmHg Left PVR Waveforms High thigh: Normal. Low thigh: Normal. Calf: Normal. Ankle: Normal. Transmetatarsal: Normal. Digit: Normal. POST EXERCISE Not exercised: Elevated blood pressure. IMPRESSION RIGHT SIDE Resting right ankle brachial index: 1.17 Right toe brachial index: 0.85 Normal ankle brachial index at rest in the right leg. Normal toe brachial index at rest in the right leg. Right ankle: Normal at rest. LEFT SIDE Resting left ankle brachial index: 1.21 Left toe brachial index: 0.85 Normal ankle brachial index at rest in the left leg. Normal toe brachial index at rest in the left leg. Left ankle: Normal at rest. Technologist: Kassandra Benaviedz [facility] Ordering physician: ANAY SCHULER Interpreting physician: MANGO Castro DO Final [facility] [employer] Image : [id number] See Link below for Image Normal [facility] CNOVon 08-02-2024 CNOV Office Visit (INTMWS) REINIER ELIZABETH ([id number]) 1935 F NFR Date Time Provider Department 08/02/24 1:40 PM ANAY SCHULER INTMWS During your visit today, we recorded the following information about you: Pulse Blood pressure Weight Height 67/minute 124/78 64 kg 1.575 m Anay Schuler MD 08/02/2024 6:39 PM Signed Reason for Visit Patient presents with: Recheck Reinier Elizabeth is a 86 year old female who presents here today for Above Complaints.. Health Maintenance ADVANCE DIRECTIVE DISCUSSION HPI Here with her daughter zaina, today and notes that she is feeling pretty well and has no major concerns. Reinier is a 86-year-old woman with a past medical history of hypertension, hyperlipidemia, pulmonary hypertension, atrial fibrillation likely from the pulmonary hypertension sequelae, CKD and anemia from recurrent GI bleeds supposedly from from anticoagulation. 01/19: In the past year the patient was started on Prolia injections for osteoporosis. Was treated for anemia, there was some concern with hypertension and heart disease. In the past year we have had a hard time regulating her blood pressure after all hospitalizations from [facility] with RVR, cardioversion and addition of different medications along with anemia and issues with hypovolemia her Bp has been up and down a lot . Currently her systolic is in the high 140 to 150 range. She just saw Dr Sewell who put her on the hydralazine 3 times a day and bp is a little better. She is on cozaar 50, coreg 12.5, lasix, 20 mgs daily, 3 days a week in addition to the hydralazine. Lasix was decreased because of a worsening GFR more swelling now that the lasix has been cut back, She does use compression stockings She is exercising using the bike at home. Taking the potassium We have not had her labs done in the past 2 to 3 months so we would like to recheck her thyroid along with her blood counts especially to check what her CBC is like. She has an upcoming EGD by [facility]. Her brother calls her calls her every day, visits every Thursday. Has a decent flower bed. 05/30/2024: To increase coreg to 2 in the morning and one at night time as bp is not well controlled. She did pursue to get the hearing aids. 08/02/24: Reviewed labs, Tsh, lipid is normal . Hb Is a little improved, creat is stable. Main concern today is that her legs are feeling tired after a certain amount of walking, this happens frequently but not very consistently. Ginettetesa is working for her but it is too expensive and she cannot it as she is on xarelto and the eye drops. No problem-specific Assessment AND Plan notes found for this encounter. PAST SURGICAL HISTORY Procedure Laterality Date COLONOSCOPY [...] May. right eye Jun. left eye - [facility] . Dr Gao REPAIR FIRST ABDOMINAL WALL HERNIA 12/14/2012 2cm defect - Parietex Composite ventral patch 6cm STRESS TEST 04/14/2017 PAWAN 02/04/2018 FAMILY HISTORY Problem Relation Age of Onset Heart Mother Hypertension Mother Ischemic Heart Disease Mother Hypertension Father Ischemic Heart Disease Father Heart Sister By-pass, Triple Ischemic Heart Disease Sister Heart Brother Stent Ischemic Heart Disease Brother Glaucoma Brother other (Renal Stones) Daughter Heart Maternal Aunt Social History Tobacco Use Smoking status: Former Current packs/day: 0.00 Types: Cigarettes Start date: 07/06/1971 Quit date: 07/06/1976 Years since quittin.1 Smokeless tobacco: Never Tobacco comments: Quit 1969' 4-5 cig per day Vaping Use Vaping status: Never Used Substance Use Topics Alcohol use: No Drug use: No Past medical history, appointments, medications, allergies reviewed. Pertinent Lab/Diagnostic Studies are reviewed and discussed today Current Outpatient Medications: losartan (COZAAR) 50 mg tablet atorvastatin (LIPITOR) 20 mg tablet levothyroxine (LEVOXYL) 25 mcg tablet omeprazole (PRILOSEC) 40 mg capsule cyanocobalamin, vitamin B-12, (VITAMIN B12 ORAL) denosumab (PROLIA SUBCUTANEOUS) vibegron (GEMTESA) 75 mg tablet furosemide (LASIX) 20 mg tablet ferrous sulfate 325 mg (65 mg iron) tablet hydrALAZINE (APRESOLINE) 10 mg tablet carvedilol (COREG) 12.5 mg tablet potassium chloride (K-TAB) 10 mEq tablet [employer] magdalena XARELTO 15 mg tablet brimonidine (ALPHAGAN P) 0.15 % ophthalmic (more content not included)... Normal [facility] 25(OH)D3 SerPl-mCncon 2024 25-hydroxyvitamin D3 [Mass/Vol] 37.4 ng/mL Normal 31.0-80.0 [facility] Comment on above: Order Comment: Specgamal vilchis Type: BLOOD SPECIMEN Ordering Facility: [facility] Address: [address] [place] [address] Result Comment: Clas sification of 25 [place] Vitamin D status: Deficiency/Insufficiency: < or = 30 ng/ml. Sufficiency/Optimal Levels: 31-80 ng/mL Toxicity: > 100 ng/mL. Test performed by chemiluminescent immunoassay. Performed By: #### 1 989-3 #### [facility] CLIA [id number] [address] [place] [address] [place] CBC panel Auto (Bld)on 07-25 Erythrocyte distribution width (RBC) [Ratio] 12.5 % Normal 11.5-15.0 [facility] Comment on above: Order Comment: Claudia vilchis Type: BLOOD SPECIMEN Ordering Facility: [facility] Address: [address] [place] [address] Performed By: #### 2 4323-8, 2132-02 #### [facility] CLIA [id number] [address] [place] [address] [place] Hematocrit (Bld) [Volume fraction] 35.4 % Low 36.0-46.0 [facility] Comment on above: Order Comment: Claudia vilchis Type: BLOOD SPECIMEN Ordering Facility: [facility] Address: [address] [place] [address] Performed By: #### 2 4323-8, 2132-02 #### [facility] CLIA [id number] [address] [place] [address] [place] Hemoglobin (Bld) [Mass/Vol] 11.3 g/dL Low 11.5-15.5 [facility] Comment on above: Order Comment: Speci men Type: BLOOD SPECIMEN Ordering Facility: [facility] Address: [address] [place] [address] Performed By: #### 2 432-8, 2132-02 #### [facility] CLIA [id number] [address] [place] [address] [place] MCH (RBC) [Entitic mass] 31.6 pg Normal 26.0-34.0 [facility] Comment on above: Order Comment: Speci men Type: BLOOD SPECIMEN Ordering Facility: [facility] Address: [address] [place] [address] Performed By: #### 2 432-8, 2132-02 #### [facility] CLIA [id number] [address] [place] [address] [place] MCHC (RBC) [Mass/Vol] 31.9 g/dL Normal 30.5-36.0 [facility] Comment on above: Order Comment: Speci men Type: BLOOD SPECIMEN Ordering Facility: [facility] Address: [address] [place] [address] Performed By: #### 2 432-8, 2132-02 #### [facility] CLIA [id number] [address] [place] [address] [place] MCV (RBC) [Entitic vol] 98.9 fL Normal 80.0-100.0 [facility] Comment on above: Order Comment: Speci men Type: BLOOD SPECIMEN Ordering Facility: [facility] Address: [address] [place] [address] Performed By: #### 2 432-8, 2132-02 #### [facility] CLIA [id number] [address] [place] [address] [place] Nucleated RBC (Bld) [#/Vol] 10*3/uL Normal <0.01 [facility] Comment on above: Order Comment: Speci men Type: BLOOD SPECIMEN Ordering Facility: [facility] Address: [address] [place] [address] Performed By: #### 2 4323-8, 2132-02 #### [facility] CLIA [id number] [address] [place] [address] [place] Platelet mean volume (Bld) [Entitic vol] 10.1 fL Normal 9.0-12.7 [facility] Comment on above: Order Comment: Speci men Type: BLOOD SPECIMEN Ordering Facility: [facility] Address: [address] [place] [address] Performed By: #### 2 4323-8, 2132-02 #### [facility] CLIA [id number] [address] [place] [address] [place] Platelets (Bld) [#/Vol] 180 10*3/uL Normal 150-400 [facility] Comment on above: Order Comment: Speci men Type: BLOOD SPECIMEN Ordering Facility: [facility] Address: [address] [place] [address] Performed By: #### 2 432-8, 2132-02 #### [facility] CLIA [id number] [address] [place] [address] [place] RBC (Bld) [#/Vol] 3.58 10*6/uL Low 3.90-5.[address] [facility] Comment on above: Order Comment: Speci men Type: BLOOD SPECIMEN Ordering Facility: [facility] Address: [address] [place] [address] Performed By: #### 2 4323-8, 2132-02 #### [facility] CLIA [id number] [address] [place] [address] [place] WBC (Bld) [#/Vol] 5.17 10*3/uL Normal 3.70-11.[address] [facility] Comment on above: Order Comment: Speci men Type: BLOOD SPECIMEN Ordering Facility: [facility] Address: [address] [place], [place] [address] Performed By: #### 2 4323-8, 2132-02 #### [facility] CLIA [id number] [address] [place], [place] [address] [place] Comprehensive metabolic 2000 panelon 07-25-2024 Albumin [Mass/Vol] 4.0 g/dL Normal 3.9-4.9 [facility] Comment on above: Order Comment: Speci men Type: BLOOD SPECIMEN Ordering Facility: [facility] Address: [address] [place], [place] [address] Performed By: #### 2 4323-8, 2132-02 #### [facility] CLIA [id number] [address] [place] [address] [place] ALP [Catalytic activity/Vol] 42 U/L Normal 34-123 [facility] Comment on above: Order Comment: Speci men Type: BLOOD SPECIMEN Ordering Facility: [facility] Address: [address] [place], [place] [address] Performed By: #### 2 4323-8, 2132-02 #### [facility] CLIA [id number] [address] [place] [address] [place] ALT [Catalytic activity/Vol] 19 U/L Normal 7-38 [facility] Comment on above: Order Comment: Speci men Type: BLOOD SPECIMEN Ordering Facility: [facility] Address: [address] [place], [place] [address] Performed By: #### 2 4323-8, 2132-02 #### [facility] CLIA [id number] [address] [place], [place] [address] [place] Anion gap [Moles/Vol] 10 mmol/L Normal 8-15 [facility] Comment on above: Order Comment: Speci men Type: BLOOD SPECIMEN Ordering Facility: [facility] Address: [address] [place], [place] [address] Performed By: #### 2 4328, 2132-02 #### [facility] CLIA [id number] [address] [place], [place] [address] [place] AST [Catalytic activity/Vol] 23 U/L Normal 13-35 [facility] Comment on above: Order Comment: Speci men Type: BLOOD SPECIMEN Ordering Facility: [facility] Address: [address] [place] [address] Performed By: #### 2 43209-03, 2132-02 #### [facility] CLIA [id number] [address] [place], [place] [address] [place] Bilirubin [Mass/Vol] 0.4 mg/dL Normal 0.2-1.3 [facility] Comment on above: Order Comment: Speci men Type: BLOOD SPECIMEN Ordering Facility: [facility] Address: [address] [place] [address] Performed By: #### 2 4323-01, 2132-02 #### [facility] CLIA [id number] [address] [place], [place] [address] [place] Calcium [Mass/Vol] 9.5 mg/dL Normal 8.5-10.2 [facility] Comment on above: Order Comment: Speci men Type: BLOOD SPECIMEN Ordering Facility: [facility] Address: [address] [place] [address] Performed By: #### 2 4323-01, 2132-02 #### [facility] CLIA [id number] [address] [place], [place] [address] [place] Chloride [Moles/Vol] 109 mmol/L High 98-107 [facility] Comment on above: Order Comment: Speci men Type: BLOOD SPECIMEN Ordering Facility: [facility] Address: [address] [place], [place] [address] Performed By: #### 2 4328, 2132-02 #### [facility] CLIA [id number] [address] [place], [place] [address] [place] CO2 [Moles/Vol] 22 mmol/L Normal 22-30 [facility] Comment on above: Order Comment: Claudia vilchis Type: BLOOD SPECIMEN Ordering Facility: [facility] Address: [address] [place] [address] Performed By: #### 2 4328, 2132-02 #### [facility] CLIA [id number] [address] [place] [address] [place] Creatinine [Mass/Vol] 1.43 mg/dL High 0.58-0.96 [facility] Comment on above: Order Comment: Claudia vilchis Type: BLOOD SPECIMEN Ordering Facility: [facility] Address: [address] [place] [address] Performed By: #### 2 43209-03, 2132-02 #### [facility] CLIA [id number] [address] [place] [address] [place] Creatinine and Glomerular filtration rate.predicted panel (S/P/Bld) 36 mL/min/1.73m??? Low >=60 [facility] Comment on above: Order Comment: Claudia vilchis Type: BLOOD SPECIMEN Ordering Facility: [facility] Address: [address] [place] [address] Result Comment: Lien mated Glomerular Filtration Rate (eGFR) is calculated using the 2020 CKD-EPI creatinine equation. This equation utilizes serum creatinine, sex, and age as parameters. The creatinine assay has traceable calibration to isotope dilution-mass spectrometry. Refer to KDIGO guidelines for clinical interpretation. In patients with unstable renal function, e.g. those with acute kidney injury, the eGFR may not accurately reflect actual GFR. Performed By: #### 2 4323-01, 2132-02 #### [facility] CLIA [id number] [address] [place] [address] [place] Glucose [Mass/Vol] 95 mg/dL Normal 74-99 [facility] Comment on above: Order Comment: Claudia vilchis Type: BLOOD SPECIMEN Ordering Facility: [facility] Address: [address] [id number] Result Comment: The [place] [employer] (ADA) provides guidance for cutoff values for fasting glucose and random glucose. The ADA defines fasting as no caloric intake for at least 8 hours. Fasting plasma glucose results between 100 to 125 mg/dL indicate increased risk for diabetes (prediabetes). Fasting plasma glucose results greater than or equal to 126 mg/dL meet the criteria for diagnosis of diabetes. In the absence of unequivocal hyperglycemia, results should be confirmed by repeat testing. In a patient with classic symptoms of hyperglycemia or hyperglycemic crisis, random plasma glucose results greater than or equal to 200 mg/dL meet the criteria for diagnosis of diabetes. Reference: Standards of Medical Care in Diabetes 2016, [place] [employer]. Diabetes Care. 2016.39(Suppl 1). Performed By: #### 2 43209-03, 2132-02 #### [facility] CLIA [id number] [address] [place] [address] [place] Potassium [Moles/Vol] 4.7 mmol/L Normal 3.7-5.1 [facility] Comment on above: Order Comment: Speci men Type: BLOOD SPECIMEN Ordering Facility: [facility] Address: [address] [place] [address] Performed By: #### 2 4323-01, 2132-02 #### [facility] CLIA [id number] [address] [place] [address] [place] Protein [Mass/Vol] 7.0 g/dL Normal 6.3-8.0 [facility] Comment on above: Order Comment: Speci men Type: BLOOD SPECIMEN Ordering Facility: [facility] Address: [address] [place] [address] Performed By: #### 2 4323-01, 2132-02 #### [facility] CLIA [id number] [address] [place] [address] [place] Sodium [Moles/Vol] 141 mmol/L Normal 136-144 [facility] Comment on above: Order Comment: Speci men Type: BLOOD SPECIMEN Ordering Facility: [facility] Address: [address] [place] [id number] Performed By: #### 2 4323-8, 2132-02 #### [facility] CLIA [id number] [address] [place] [address] [place] Urea nitrogen [Mass/Vol] 26 mg/dL High 7-21 [facility] Comment on above: Order Comment: Speci men Type: BLOOD SPECIMEN Ordering Facility: [facility] Address: [address] [place] [address] Performed By: #### 2 4328, 2132-02 #### [facility] CLIA [id number] [address] [place], [place] [address] [place] Lipid 1996 panelon 5 Cholesterol [Mass/Vol] 184 mg/dL Normal <200 [facility] Comment on above: Order Comment: Speci men Type: BLOOD SPECIMEN Ordering Facility: [facility] Address: [address] [place] [address] Result Comment: <200 mg/dL, Desirable 200-239 mg/dL, Borderline high >239 mg/dL, High Performed By: #### 2 4323-01, 2132-02 #### [facility] CLIA [id number] [address] [place], [place] [address] [place] Cholesterol in HDL [Mass/Vol] 56 mg/dL Normal >39 [facility] Comment on above: Order Comment: Speci men Type: BLOOD SPECIMEN Ordering Facility: [facility] Address: [address] [place], [place] [address] Result Comment: 40-5 9 mg/dL, Acceptable >59 mg/dL, High: Negative risk factor for coronary heart disease <40 mg/dL, Low: Positive risk factor for coronary heart disease Performed By: #### 2 4323-8, 2132-02 #### [facility] CLIA [id number] [address] [place], [place] [address] [place] Cholesterol in LDL [Mass/Vol] 111 mg/dL High <100 [facility] Comment on above: Order Comment: Claudia vilchis Type: BLOOD SPECIMEN Ordering Facility: [facility] Address: [address] [place] [address] Result Comment: <100 mg/dL, Optimal 100-129 mg/dL, Near optimal/above optimal 130-159 mg/dL, Borderline high 160-189 mg/dL, High >189 mg/dL, Very high Secondary prevention optimal LDL Cholesterol levels are recommended to be < 70 mg/dL Performed By: #### 2 4323-01, 2132-02 #### [facility] CLIA [id number] [address] [place], [place] [address] [place] [address] [place] Cholesterol in LDL/Cholesterol in HDL [Mass ratio] 1.98 {ratio} Normal <2.54 [facility] Comment on above: Order Comment: Claudia vilchis Type: BLOOD SPECIMEN Ordering Facility: [facility] Address: [address] [place] [address] Result Comment: Milad fagan: 1. National Cholesterol Education Program ATP III Guideline At-A-Glance Quick Desk Reference: National Heart, Lung, and Blood [place]. National Institutes of Health. 2001: NIH Publication No. 01-3305. 2. An International Atherosclerosis Society position paper: global recommendations for the management of dyslipidemia: executive summary, Atherosclerosis. 2014: 232(2):410-413. Performed By: #### 2 4323-01, 2132-02 #### [facility] CLIA [id number] [address] [place], [place] [address] [place] [address] [place] Cholesterol in VLDL [Mass/Vol] 17 mg/dL Normal <30 [facility] Comment on above: Order Comment: Claudia vilchis Type: BLOOD SPECIMEN Ordering Facility: [facility] Address: [address] [place] [address] Performed By: #### 2 4323-01, 2132-02 #### [facility] CLIA [id number] [address] [place], [place] [address] [place] [id number] [place] Cholesterol non HDL [Mass/Vol] 128 mg/dL Normal <130 [facility] Comment on above: Order Comment: Speci men Type: BLOOD SPECIMEN Ordering Facility: [facility] Address: [address] [place] [address] Result Comment: <130 mg/dL, Optimal 130-159 mg/dL, Near optimal/above optimal 160-189 mg/dL, Borderline high 190-219 mg/dL, High >219 mg/dL, Very high Secondary prevention optimal non HDL Cholesterol levels are recommended to be <100 mg/dL Performed By: #### 2 4328, 2132-02 #### [facility] CLIA [id number] [address] [place] [address] [place] Cholesterol.total/Choles terol in HDL [Mass ratio] 3.29 {ratio} Normal <5.10 [facility] Comment on above: Order Comment: Speci men Type: BLOOD SPECIMEN Ordering Facility: [facility] Address: [address] [place] [address] Performed By: #### 2 4328, 2132-02 #### [facility] CLIA [id number] [address] [place] [address] [place] FASTING TIME 12 hrs Normal [facility] Comment on above: Order Comment: Speci men Type: BLOOD SPECIMEN Ordering Facility: [facility] Address: [address] [place] [address] Performed By: #### 2 4328, 2132-02 #### [facility] CLIA [id number] [address] [place] [address] [place] Triglyceride [Mass/Vol] 87 mg/dL Normal <150 [facility] Comment on above: Order Comment: Speci men Type: BLOOD SPECIMEN Ordering Facility: [facility] Address: [address] [place] [address] Result Comment: <150 mg/dL, Normal 150-199 mg/dL, Borderline high 200-499 mg/dL, High >499 mg/dL, Very high Performed By: #### 2 4323-8, 2132-02 #### [facility] CLIA [id number] [address] [place] [address] [place] TSH SerPl-aCncon 07-25-2024 TSH Qn 2.630 m[IU]/L Normal 0.270-4.200 [facility] Comment on above: Order Comment: Speci men Type: BLOOD SPECIMEN Ordering Facility: [facility] Address: [address] [place] [address] Performed By: #### 2 4323-8, 2132-9 #### [facility] CLIA [id number] [address] [place] [address] [place] Endocrinology Visit Reporton 06-14-2024 Endocrinology Visit Report Normal [facility] Bacteria Ur Culton Bacteria identified Cx Nom (U) ORGANISM ID: 1 >=100,000 CFU/ml Escherichia coli ORGANISM ID: 1 (ESCHERICHIA COLI) ANTIBIOTIC INTERPRETATION AVE STATUS REFERENCE RANGE Ampicillin R >=32 F Susceptible <=8 , Intermediate >8 , Resistant >16 Cefazolin S <=4 F Susceptible 0-16 , Intermediate <0 or >16 , Resistant >16 For uncomplicated urinary tract infections, cefazolin results can be used to predict susceptibility or resistance to cephalexin. Ceftriaxone S <=1 F Susceptible <=1 , Intermediate >1 , Resistant >=4 Cefepime S <=1 F Susceptible <=2 , Susceptible-Dose Dependent >2 , Resistant >=16 Ertapenem S <=0.5 F Susceptible <=0.5 , Intermediate >.5 , Resistant >1 Meropenem S <=0.25 F Susceptible <=1 , Intermediate >1 , Resistant >2 Ampicillin/Sulbact R >=32 F Susceptible <=8 , Intermediate >8 , Resistant >16 Piperacillin/Tazobac SDD 16 F Susceptible <16 , Susceptible-Dose Dependent >=16 , Resistant >=32 Gentamicin S <=1 F Susceptible <=2 , Intermediate >2 , Resistant >=8 Tobramycin S <=1 F Susceptible <4 , Intermediate >=4 , Resistant >=8 Trimeth sulfameth S <=20 F Susceptible <=40 , Resistant >40 Ciprofloxacin R >=4 F Susceptible <0.5 , Intermediate >=.5 , Resistant >=1 Nitrofurantoin S <=16 F Susceptible <=32 , Intermediate >32 , Resistant >64 Abnormal [facility] Comment on above: Performed By: #### 5 7021-8 #### [facility] CLIA [id number] [address] [place] [address] [place] [facility] Bacteria identified Cx Nom (U) ORGANISM ID: 1 >=100,000 CFU/ml Escherichia coli ORGANISM ID: 1 (ESCHERICHIA COLI) ANTIBIOTIC INTERPRETATION AVE STATUS REFERENCE RANGE Ampicillin R >=32 F Susceptible <=8 , Intermediate >8 , Resistant >16 Cefazolin S <=4 F Susceptible 0-16 , Intermediate <0 or >16 , Resistant >16 For uncomplicated urinary tract infections, cefazolin results can be used to predict susceptibility or resistance to cephalexin. Ceftriaxone S <=1 F Susceptible <=1 , Intermediate >1 , Resistant >=4 Cefepime S <=1 F Susceptible <=2 , Susceptible-Dose Dependent >2 , Resistant >=16 Ertapenem S <=0.5 F Susceptible <=0.5 , Intermediate >.5 , Resistant >1 Meropenem S <=0.25 F Susceptible <=1 , Intermediate >1 , Resistant >2 Ampicillin/Sulbact R >=32 F Susceptible <=8 , Intermediate >8 , Resistant >16 Piperacillin/Tazobac S 8 F Susceptible <16 , Susceptible-Dose Dependent >=16 , Resistant >=32 Gentamicin S <=1 F Susceptible <=2 , Intermediate >2 , Resistant >=8 Tobramycin S <=1 F Susceptible <4 , Intermediate >=4 , Resistant >=8 Trimeth sulfameth S <=20 F Susceptible <=40 , Resistant >40 Ciprofloxacin R >=4 F Susceptible <0.5 , Intermediate >=.5 , Resistant >=1 Nitrofurantoin S <=16 F Susceptible <=32 , Intermediate >32 , Resistant >64 Abnormal [facility] Comment on above: Performed By: #### 5 7021-8 #### [facility] CLIA [id number] [address] [place] [address] [place] CNOVon 06-10-2024 CNOV Office Visit (UCWSTR) REINIER ELIZABETH ([id number]) 1935 F NFR Date Time Provider Department 06/10/24 3:30 PM JEREMY YU During your visit today, we recorded the following information about you: Temperature Pulse Respiration Blood pressure 97.8 degrees 76/minute 16/minute 134/72 Weight 64 kg Jeremy Yu MD 06/10/2024 4:02 PM Signed Patient presents with: Urinary Frequency: x last night HPI: Symptoms since yesterday Dysuria: Yes Frequency: Yes Hematuria: No Nausea: No Fever or chills: No Back pain: No Abdominal pain: bladder pressure Prior UTI: Yes Personal history of kidney stones: No Family history of kidney stones: daughter PAST MEDICAL HISTORY Diagnosis Date Acquired keratoderma Lichen sclerosis Anemia Anticoagulant long-term use indication: stroke prevention atrial fibrillation At risk for bleeding associated with anticoagulants HAS-BLED score = 2 (age, bleeding) At risk for stroke [id number] = 4 (HTN, age2, female gender) Benign [...] excessive Umbilical hernia 12/22/2012 Unspecified essential hypertension MEDICATIONS: Current Outpatient Medications Medication Sig atorvastatin (LIPITOR) 20 mg tablet Take 1 tablet by mouth every 48 hours. levothyroxine (LEVOXYL) 25 mcg tablet Take 1 tablet by mouth once daily. Take on empty stomach. For Thyroid omeprazole (PRILOSEC) 40 mg capsule Take 1 capsule by mouth daily before breakfast. 1/2 hr before meal. cyanocobalamin, vitamin B-12, (VITAMIN B12 ORAL) Take by mouth. denosumab (PROLIA SUBCUTANEOUS) Inject subcutaneously. vibegron (GEMTESA) 75 mg tablet Take 1 tablet by mouth once daily. hydrOXYzine HCl (ATARAX) 25 mg tablet Take 1 tablet by mouth every 4 hours as needed for itching/rash. furosemide (LASIX) 20 mg tablet Take 1 tablet by mouth every other day. ferrous sulfate 325 mg (65 mg iron) tablet Take 1 tablet by mouth once daily. hydrALAZINE (APRESOLINE) 10 mg tablet Take 1 tablet by mouth four times daily. losartan (COZAAR) 50 mg tablet Take 1 tablet by mouth two times a day. carvedilol (COREG) 12.5 mg tablet Take 12.5 mg by mouth two times a day with meals. potassium chloride (K-TAB) 10 mEq tablet Take [...] IF UNABLE, PLEASE REFER TO [facility]. DX: EDEMA latanoprost (XALATAN) 0.005 % ophthalmic solution 1 Drop daily at bedtime. TRAVATAN Z 0.004 % Drop daily at bedtime. Cholecalciferol, Vitamin D3, 2,000 unit ORAL Cap Take one(1) tablet two(2) times daily. No current facility-administere d medications for this visit. ALLERGIES: ALLERGIES Allergen Reactions Amantadine Rash Capoten [Captopril] Rash Cephalexin Rash Erythromycin Rash Hctz [Thiazides] Other: See Comments leg cramps Ivp Dye [Iodine] Rash Norvasc [Amlodipine* Swelling VITALS: BP 134/72 Pulse 76 Temp 36.6 ?C (97.8 ?F) Resp 16 Wt 64 kg (141 lb 1.5 oz) SpO2 98% BMI 25.81 kg/m? PHYSICAL EXAM: GEN: NAD HEENT: EOMI, conjunctiva clear, HEART: regular rate and rhythm, no murmurs LUNGS: clear to auscultation, no wheezes or crackles, no increased WOB ABDOMEN: Soft, nondistended, no masses, no suprapubic tenderness BACK: No CVA tenderness Latest Ref Rng 08/18/2023 eGFR >=60 mL/min/1.73m? 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 ASSESSMENT/PLAN: 1. Urinary frequency - ICD9: 788.41, ICD10: R35.0 - UA positive for gurwinder esterase, hematuria, proteinuria, and nitrates - UA DIP, URINE (POC) - NITROFURANTOIN MONOHYDRATE AND MACROCRYSTAL 100 MG ORAL CAP. - URINE CULTURE - bactrim can be used with caution if needed (taking ARB and (more content not included)... [facility]INTMWS[facility] REINIER ELIZABETH ([id number]) 1935 F NFR Date Time Provider Department 06/10/24 ANAY SCHULER INTWS During your visit today, we recorded the following information about you: Felicity Sprague LPN 06/10/2024 10:57 AM Signed Pt calling to get a urine lab order. Pt feels sh has a UTI. I instructed pt you need to be seen. She reports she has done this for me in the past. Pt's symptoms x 1 day, pressure and frequency. Denies burning. Please advise pt is you are willing to send in a lab order or does she need to come in. SHERIN Hilton Chitra, MD 06/10/2024 12:50 PM Signed Please call patient mariia to tell her to come in to give the urine Anay Iniguez MD, Mary, LPN 06/10/2024 1:15 PM Signed Called and updated patient to come in to give urine sample to lab. Voiced understanding. Jazmine Head LPN June 10, 2024 1:15 PM Allergies As of Date: 06/10/2024 Noted Allergy Reaction AMANTADINE 05/09/2005 2 - Rash CAPOTEN (CAPTOPRIL) 05/09/2005 2 - Rash CEPHALEXIN 05/09/2005 2 - Rash ERYTHROMYCIN 05/09/2005 2 - Rash HCTZ (THIAZIDES) 03/26/2015 14 - Other: See Comments Comments: leg cramps IVP DYE (IODINE) 05/12/2005 2 - Rash NORVASC (AMLODIPINE BESYLATE) 08/27/2017 7 - Swelling Date Reviewed: 05/30/2024 Reviewed by: Megha Rivera MA - Fully Assessed Reason for Visit: requesting lab orders for urine [Other] Primary Visit Diagnosis:Dysuria [R30.0] Order(s):URINALYSIS WITH MICROSCOPIC, REFLEX CULTURE [SQUACII] Order #: [id number] FUTURE Prescriptions as of 06/10/2024 - atorvastatin (LIPITOR) 20 mg tablet Take 1 tablet by mouth every 48 hours. - levothyroxine (LEVOXYL) 25 mcg tablet Take 1 tablet by mouth once daily. Take on empty stomach. For Thyroid - omeprazole (PRILOSEC) 40 mg capsule Take 1 capsule by mouth daily before breakfast. 1/2 hr before meal. - cyanocobalamin, vitamin B-12, (VITAMIN B12 ORAL) Take by mouth. - denosumab (PROLIA SUBCUTANEOUS) Inject subcutaneously. - vibegron (GEMTESA) 75 mg tablet Take 1 tablet by mouth once daily. - hydrOXYzine HCl (ATARAX) 25 mg tablet Take 1 tablet by mouth every 4 hours as needed for itching/rash. - furosemide (LASIX) 20 mg tablet Take 1 tablet by mouth every other day. - ferrous sulfate 325 mg (65 mg iron) tablet Take 1 tablet by mouth once daily. - hydrALAZINE (APRESOLINE) 10 mg tablet Take 1 tablet by mouth four times daily. - losartan (COZAAR) 50 mg tablet Take 1 tablet by mouth two times a day. - carvedilol (COREG) 12.5 mg tablet Take 12.5 mg by mouth two times a day with meals. - potassium chloride (K-TAB) 10 mEq tablet Take 1 tablet by mouth twice daily. - Spirometers and Accessories magdalena Use 3 times a day, each time blow into it for 10 reps - XARELTO 15 mg tablet Take 15 mg by mouth daily with dinner. - brimonidine (ALPHAGAN P) 0.15 % ophthalmic solution Use 1 Drop in the right eye twice daily. - timolol maleate (TIMOPTIC) 0.5 % ophthalmic solution Use 1 Drop in the right eye twice daily. - >Zippered Compression Knee High 30-40 mm custom CUSTOM MEASURE FOR KNEE HIGH ANGELO COMPRESSION STOCKINGS, 30-40 MM, WITH ZIPPERS PLEASE. IF UNABLE, PLEASE REFER TO [facility]. DX: EDEMA - latanoprost (XALATAN) 0.005 % ophthalmic solution 1 Drop daily at bedtime. - TRAVATAN Z 0.004 % Drop daily at bedtime. - Cholecalciferol, Vitamin D3, 2,000 unit ORAL Cap Take one(1) tablet two(2) times daily. 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 Urgency of urination [R39.15] 02/20/2009 06/14/2020 Urge incontinence [N39.41] 02/20/2009 08/06/2016 Female stress incontinence [N39.3] 02/20/2009 08/06/2016 Nocturia [R35.1] 02/20/2009 08/06/2016 Symptomatic menopausal or female climacteric st*02/20/2009 08/06/2016 Postmenopausal atrophic vaginitis [N95.2] 02/20/2009 06/14/2020 Disorder of bone and cartilage, unspecified [M8*02/20/2009 03/24/2012 Osteoporosis with current pathological fracture*06/10/2010 Vitamin D deficiency [E55.9] 06/13/2010 Incisional hernia [K43.2] 12/14/2012 08/06/2016 Mixed hyperlipidemia [E78.2] 08/06/2016 Pedal edema [R60.0] 12/04/2016 Pulmonary hypertension (HCC) [I27.20] 05/07/2017 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 Normal [facility] T4 Free SerPl-mCncon 024 Free T4 [Mass/Vol] 1.4 ng/dL Normal 0.9-1.7 [facility] Comment on above: Order Comment: Speci men Type: BLOOD SPECIMEN Ordering Facility: [facility] Address: [address] [place] [address] Performed By: #### 2 4323-8, 2132-9 #### [facility] CLIA [id number] [address] [place] [address] [place] UA DIP, URINE (POC)on 2023 BILIRUBIN UA (POCT) Negative Negative [facility] CLARITY UA (POCT) Clear [facility] COLOR UA (POCT) Yellow [facility] GLUCOSE UA (POCT) Negative Negative mg/dL [facility] Hemoglobin Ql (U) Trace-intact Abnormal Negative [facility] Interpretation and review of laboratory results Abnormal [facility] KETONE UA (POCT) Trace Negative mg/dL [facility] LEUKOCYTES UA (POCT) Small Abnormal Negative [facility] NITRITE UA (POCT) Positive Abnormal Negative [facility] PH UA (POCT) 6.0 4.5 - 8.0 [facility] Protein Ql (U) 100 mg/dL Abnormal Negative [facility] SPECIFIC GRAVITY UA (POCT) 1.025 1.005 - 1.030 [facility] UROBILINOGEN UA (POCT) 0.2 Michelle l E.U./dL [facility] Location:[facility], [address] [place] [address], [place], [place], [id number] [place] [address] POINT OF CARE [facility] Urinalysis complete panel (U )on 06-10-2024 BACTERIA UL 1666.1 uL High Negative [facility] Comment on above: Order Comment: Speci men Type: BLOOD SPECIMEN Ordering Facility: [facility] Address: [address] [place] [address] Performed By: #### 5 7021-8 #### [facility] CLIA [id number] [address] [address] [place] Bilirubin Ql (U) Negative Normal Negative [facility] Comment on above: Order Comment: Speci men Type: BLOOD SPECIMEN Ordering Facility: [facility] Address: [address] [place], [place] [address] Performed By: #### 5 7021-8 #### [facility] CLIA [id number] [address] [place], [place] [address] [place] Clarity (Unsp spec) Clear Normal Clear [facility] Comment on above: Order Comment: Speci men Type: BLOOD SPECIMEN Ordering Facility: [facility] Address: [address] [place] [address] Performed By: #### 5 7021-8 #### [facility] CLIA [id number] [address] [place], [place] [address] [place] [facility] Color (U) Yellow Normal Yellow [facility] Comment on above: Order Comment: Speci men Type: BLOOD SPECIMEN Ordering Facility: [facility] Address: [address] [place] [address] Performed By: #### 5 7021-8 #### [facility] CLIA [id number] [address] [place], [place] [address] [place] Epithelial cells LM.HPF (Urine sed) [#/Area] None Seen Normal [facility] Comment on above: Order Comment: Speci men Type: BLOOD SPECIMEN Ordering Facility: [facility] Address: [address] [place], [place] [address] Performed By: #### 5 7021-8 #### [facility] CLIA [id number] [address] [place], [place] [address] [place] Glucose Test strip (U) [Mass/Vol] Negative Normal Negative [facility] Comment on above: Order Comment: Speci men Type: BLOOD SPECIMEN Ordering Facility: [facility] Address: [address] [place], [place] [address] Performed By: #### 5 7021-8 #### [facility] CLIA [id number] [address] [place] [address] [place] Hemoglobin Ql (U) Negative Normal Negative [facility] Comment on above: Order Comment: Speci men Type: BLOOD SPECIMEN Ordering Facility: [facility] Address: [address] [place] [address] Performed By: #### 5 7021-8 #### [facility] CLIA [id number] [address] [place] [address] [place] Hyaline casts (Urine sed) [#/Area] 1-3 /LPF Abnormal 0 /LPF [facility] Comment on above: Order Comment: Speci men Type: BLOOD SPECIMEN Ordering Facility: [facility] Address: [address] [place] [address] Performed By: #### 5 7021-8 #### [facility] CLIA [id number] [address] [place] [address] [place] Ketones Ql (U) Negative Normal Negative [facility] Comment on above: Order Comment: Speci men Type: BLOOD SPECIMEN Ordering Facility: [facility] Address: [address] [place] [address] Performed By: #### 5 7021-8 #### [facility] CLIA [id number] [address] [place] [address] [place] Leukocyte esterase Test strip Ql (U) 2+ Abnormal Negative [facility] Comment on above: Order Comment: Speci men Type: BLOOD SPECIMEN Ordering Facility: [facility] Address: [address] [place] [address] Performed By: #### 5 7021-8 #### [facility] CLIA [id number] [address] [place] [address] [place] Nitrite Ql (U) Positive Abnormal Negative [facility] Comment on above: Order Comment: Speci men Type: BLOOD SPECIMEN Ordering Facility: [facility] Address: [address] [place] [address] Performed By: #### 5 7021-8 #### [facility] CLIA [id number] [address] [place] [address] [place] pH (U) 6.0 [pH] Normal <8.5 [facility] Comment on above: Order Comment: Speci men Type: BLOOD SPECIMEN Ordering Facility: [facility] Address: [address] [place] [address] Performed By: #### 5 7021-8 #### [facility] CLIA [id number] [address] [place] [address] [place] Protein (U) [Mass/Vol] Trace Abnormal Negative [facility] Comment on above: Order Comment: Speci men Type: BLOOD SPECIMEN Ordering Facility: [facility] Address: [address] [place] [address] Performed By: #### 5 7021-8 #### [facility] CLIA [id number] [address] [place] [address] [place] RBC LM.HPF (Urine sed) [#/Area] 6-10 /HPF Abnormal 0-2 /HPF [facility] Comment on above: Order Comment: Speci men Type: BLOOD SPECIMEN Ordering Facility: [facility] Address: [address] [place] [address] Performed By: #### 5 7021-8 #### [facility] CLIA [id number] [address] [place] [address] [place] Specific gravity (U) [Rel density] 1.019 Normal 1.005-1.030 [facility] Comment on above: Order Comment: Speci men Type: BLOOD SPECIMEN Ordering Facility: [facility] Address: [address] [place] [address] Performed By: #### 5 7021-8 #### [facility] CLIA [id number] [address] [place] [address] [place] Urobilinogen Ql (U) 0.2 EU/dL Normal 0.2-1.0 EU/dL [facility] Comment on above: Order Comment: Speci men Type: BLOOD SPECIMEN Ordering Facility: [facility] Address: [address] [place] [address] Performed By: #### 5 7021-8 #### [facility] CLIA [id number] [address] [place] [address] [place] WBC LM.HPF (Urine sed) [#/Area] /[HPF] Abnormal 0-5 /HPF [facility] Comment on above: Order Comment: Speci men Type: BLOOD SPECIMEN Ordering Facility: [facility] Address: [address] [place] [address] Performed By: #### 5 7021-8 #### [facility] CLIA [id number] [address] [place] [address] [place] CNOVon 05-30-2024 CNOV Office Visit (INTMWS) REINIER ELIZABETH ([id number]) 1935 F NFR Date Time Provider Department 05/30/24 1:40 PM ANAY SCHULER INTMWS During your visit today, we recorded the following information about you: Pulse Respiration Blood pressure Weight 62/minute 14/minute 140/60 63 kg Height 1.575 m Anay Schuler MD 05/30/2024 5:59 PM Signed Reason for Visit Patient presents with: Follow Up Reinier Elizabeth is a 86 year old female who presents here today for Above Complaints.. Health Maintenance ADVANCE DIRECTIVE DISCUSSION HPI Here with her daughter zaina, today and notes that she is feeling pretty well and has no major concerns. Reinier is a 86-year-old woman with a past medical history of hypertension, hyperlipidemia, pulmonary hypertension, atrial fibrillation likely from the pulmonary hypertension sequelae, CKD and anemia from recurrent GI bleeds supposedly from from anticoagulation. 01/19: In the past year the patient was started on Prolia injections for osteoporosis. Was treated for anemia, there was some concern with hypertension and heart disease. In the past year we have had a hard time regulating her blood pressure after all hospitalizations from [facility] with RVR, cardioversion and addition of different medications along with anemia and issues with hypovolemia her Bp has been up and down a lot . Currently her systolic is in the high 140 to 150 range. She just saw Dr Sewell who put her on the hydralazine 3 times a day and bp is a little better. She is on cozaar 50, coreg 12.5, lasix, 20 mgs daily, 3 days a week in addition to the hydralazine. Lasix was decreased because of a worsening GFR more swelling now that the lasix has been cut back, She does use compression stockings She is exercising using the bike at home. Taking the potassium We have not had her labs done in the past 2 to 3 months so we would like to recheck her thyroid along with her blood counts especially to check what her CBC is like. She has an upcoming EGD by [facility]. Her brother calls her calls her every day, visits every Thursday. Has a decent flower bed. 05/30/2024: To increase coreg to 2 in the morning and one at night time as bp is not well controlled. She did pursue to get the hearing aids. No problem-specific Assessment AND Plan notes found for this encounter. PAST MEDICAL HISTORY Diagnosis Date Acquired keratoderma Lichen sclerosis Anemia Anticoagulant long-term use indication: stroke prevention atrial fibrillation At risk for bleeding associated with anticoagulants HAS-BLED score = 2 (age, bleeding) At risk for stroke [id number] = 4 (HTN, age2, female gender) Benign [...] - May. right eye left eye - [facility] . Dr Gao REPAIR FIRST ABDOMINAL WALL HERNIA 12/14/2012 2cm defect - Parietex Composite ventral patch 6cm STRESS TEST 04/14/2017 PAWAN 02/04/2018 FAMILY HISTORY Problem Relation Age of Onset Heart Mother Hypertension Mother Ischemic Heart Disease Mother Hypertension Father Ischemic Heart Disease Father Heart Sister By-pass, Triple Ischemic Heart Disease Sister Heart Brother Stent Ischemic Heart Disease Brother Glaucoma Brother other (Renal Stones) Daughter Heart Maternal Aunt Social History Tobacco Use Smoking status: Former Current packs/day: 0.00 Types: Cigarettes Start date: 07/06/1971 Quit date: 07/06/1976 Years since quittin.9 Smokeless tobacco: Never Tobacco comment (more content not included)... Normal [facility] Cardiology Visit Reporton Cardiology Visit Report Normal [facility] CBC-Complete Blood Cnt No Di ffon 05-04-2024 Erythrocyte distribution width (RBC) [Ratio] 12.8 % Normal 11.6-14.6 [facility] Comment on above: Performed By: #### L 100.0500, L500.3600, L503.7387, L503.7056 ####[facility] [address] [place], [address] Hematocrit (Bld) [Volume fraction] 32.4 % Low 37-47 [facility] Comment on above: Performed By: #### L 100.0500, L500.3600, L503.6550, L503.6030 ####[facility] [address] [place], [address] Hemoglobin (Bld) [Mass/Vol] 10.6 g/dL Low 12.0-15.0 [facility] Comment on above: Performed By: #### L 100.0500, L500.3600, L503.6550, L503.6030 ####[facility] [address] [place], [address] MCH (RBC) [Entitic mass] 31.8 pg Normal 27.0-32.0 [facility] Comment on above: Performed By: #### L 100.0500, L500.3600, L503.6550, L503.6030 ####[facility] [address] [place], [address] MCHC (RBC) [Mass/Vol] 32.7 g/dL Normal 32-36 [facility] Comment on above: Performed By: #### L 100.0500, L500.3600, L503.6550, L503.6030 ####[facility] [address] [place], [address] MCV (RBC) [Entitic vol] 97.3 fL Normal 81-99 [facility] Comment on above: Performed By: #### L 100.0500, L500.3600, L503.6550, L503.6030 ####[facility] [address] [place], [address] Platelet mean volume (Bld) [Entitic vol] 10.0 fL Normal 6.2-12.0 [facility] Comment on above: Performed By: #### L 100.0500, L500.3600, L503.6550, L503.6030 ####[facility] [address] [place], [address] Platelets (Bld) [#/Vol] 222 10*3/uL Normal 150-450 [facility] Comment on above: Performed By: #### L 100.0500, L500.3600, L503.6550, L503.6030 ####[facility] [address] [place], [address] RBC (Bld) [#/Vol] 3.33 10*6/uL Low 4.2-5.4 [facility] Comment on above: Performed By: #### L 100.0500, L500.3600, L503.6550, L503.6030 ####[facility] [address] [place], [address] RDW SD 45.2 fl High 35.1-43.9 [facility] Comment on above: Performed By: #### L 100.0500, L500.3600, L503.6550, L503.6030 ####[facility] [address] [place], [address] WBC (Bld) [#/Vol] 6.8 10*3/uL Normal 4.4-11.0 [facility] Comment on above: Performed By: #### L 100.0500, L500.3600, L503.6550, L503.6030 ####[facility] [address] [place], [address] Ferritinon 05-04-2024 Ferritin [Mass/Vol] 69 ng/mL Normal 8-252 [facility] Comment on above: Performed By: #### L 100.0500, L500.3600, L503.6550, L503.6030 ####[facility] [address] [place], [address] Iron+Iron Binding Capacityon 05-04-2024 Iron [Mass/Vol] 60 ug/dL Normal 50-170 [facility] Comment on above: Performed By: #### L 100.0500, L500.3600, L503.6550, L503.6030 ####[facility] [address] [place], [address] IRON SATURATION 25.4 Normal 15.0-55.0 [facility] Comment on above: Performed By: #### L 100.0500, L500.3600, L503.6550, L503.6030 ####[facility] [address] [place], [address] TIBC 236 ug/dL Low 250-450 [facility] Comment on above: Performed By: #### L 100.0500, L500.3600, L503.6550, L503.6030 ####[facility] [address] [place], [address] Renal Profileon 05-04-2024 Albumin [Mass/Vol] 3.5 g/dL Normal 3.2-5.0 [facility] Comment on above: Performed By: #### L 100.0500, L500.3600, L503.6550, L503.6030 ####[facility] [address] [place], [address] BUN/CRE 17.1 RATIO Normal 10-20 [facility] Comment on above: Performed By: #### L 100.0500, L500.3600, L503.6550, L503.6030 ####[facility] [address] [place], [address] CA,Total 9.0 mg/dL Normal 8.5-10.1 [facility] Comment on above: Performed By: #### L 100.0500, L500.3600, L503.6550, L503.6030 ####[facility] [address] [place], [address] Chloride [Moles/Vol] 112 mmol/L High 98-107 [facility] Comment on above: Performed By: #### L 100.0500, L500.3600, L503.6550, L503.6030 ####[facility] [address] [place], [address] CO2 [Moles/Vol] 25.0 mmol/L Normal 21.0-32.0 [facility] Comment on above: Performed By: #### L 100.0500, L500.3600, L503.6550, L503.6030 ####[facility] [address] [place], [address] Creatinine [Mass/Vol] 1.23 mg/dL High 0.55-1.02 [facility] Comment on above: Result Comment: The validity of the calculated GFR GFRAA in patients over70 years has not been determined. Clinical correlation isessential. Performed By: #### L 100.0500, L500.3600, L503.6550, L503.6030 ####[facility] [address] [place], [address] EST GFR - AA 53 mL/min Low >60 [facility] Comment on above: Result Comment: Afri can Liberian GFR Calc Performed By: #### L 100.0500, L500.3600, L503.6550, L503.6030 ####[facility] [address] [place], [address] GFR/1.73 sq M.predicted among non-blacks MDRD (S/P/Bld) [Vol rate/Area] 44 mL/min/{1.73_m2} Low >60 [facility] Comment on above: Result Comment: Non- GFR Calc Performed By: #### L 100.0500, L500.3600, L503.6550, L503.6030 ####[facility] [address] [place], [address] Glucose [Mass/Vol] 105 mg/dL Normal 74-106 [facility] Comment on above: Result Comment: Fast ing Glucose result from 100 to 125 mg/dLsuggests IMPAIRED HOMEOSTASIS per A.D.A. criteria. Performed By: #### L 100.0500, L500.3600, L503.6550, L503.6030 ####[facility] [address] [place], [address] Phosphate [Mass/Vol] 2.4 mg/dL Low 2.5-4.9 [facility] Comment on above: Performed By: #### L 100.0500, L500.3600, L503.6550, L503.6030 ####[facility] [address] [place], [address] Potassium [Moles/Vol] 4.3 mmol/L Normal 3.5-5.1 [facility] Comment on above: Performed By: #### L 100.0500, L500.3600, L503.6550, L503.6030 ####[facility] [address] [place], [address] Sodium [Moles/Vol] 140 mmol/L Normal 136-145 [facility] Comment on above: Performed By: #### L 100.0500, L500.3600, L503.6550, L503.6030 ####[facility] [address] [place], [address] Urea nitrogen [Mass/Vol] 21 mg/dL High 7-18 [facility] Comment on above: Performed By: #### L 100.0500, L500.3600, L503.6550, L503.6030 ####[facility] [address] [place], [address] Office Visit Reporton 2023 Office Visit Report Normal [facility] 01-13-2024 CNPN Telephone (INTMWS) REINIER ELIZABETH ([id number]) 1935 F NFR Date Time Provider Department 01/13/24 ANAY SCHULER INTMWS During your visit today, we recorded the following information about you: Megha Rivera MA 01/13/2024 8:23 AM Signed ----- Message from Anay Schuler MD sent at 01/12/2024 5:51 PM EDT ----- Reinier, your hemoglobin is still on the lower side. But it is not at the very low level neither is it concerning. We will continue to monitor this. Watch out for any stools that are black. Megha Rivera MA 01/13/2024 10:34 AM Signed LM for patient to contact office. SHIN Majano Lori, LPN 01/13/2024 10:40 AM Signed Pt notified of results AND instructions, pt voiced understanding. Margarette Perry LPN Allergies As of Date: 01/13/2024 Noted Allergy Reaction AMANTADINE 05/09/2005 2 - Rash CAPOTEN (CAPTOPRIL) 05/09/2005 2 - Rash CEPHALEXIN 05/09/2005 2 - Rash ERYTHROMYCIN 05/09/2005 2 - Rash HCTZ (THIAZIDES) 03/26/2015 14 - Other: See Comments Comments: leg cramps IVP DYE (IODINE) 05/12/2005 2 - Rash NORVASC (AMLODIPINE BESYLATE) 08/27/2017 7 - Swelling Date Reviewed: 01/11/2024 Reviewed by: Megha Rivera MA - Fully Assessed Reason for Visit: Results [95] Prescriptions as of 01/13/2024 - cyanocobalamin, vitamin B-12, (VITAMIN B12 ORAL) Take by mouth. - denosumab (PROLIA SUBCUTANEOUS) Inject subcutaneously. - vibegron (GEMTESA) 75 mg tablet Take 1 tablet by mouth once daily. - hydrOXYzine HCl (ATARAX) 25 mg tablet Take 1 tablet by mouth every 4 hours as needed for itching/rash. - furosemide (LASIX) 20 mg tablet Take 1 tablet by mouth every other day. - ferrous sulfate 325 mg (65 mg iron) tablet Take 1 tablet by mouth once daily. - hydrALAZINE (APRESOLINE) 10 mg tablet Take 1 tablet by mouth four times daily. - losartan (COZAAR) 50 mg tablet Take 1 tablet by mouth two times a day. - carvedilol (COREG) 12.5 mg tablet Take 12.5 mg by mouth two times a day with meals. - atorvastatin (LIPITOR) 20 mg tablet Take 1 tablet by mouth every 48 hours. - levothyroxine (LEVOXYL) 25 mcg tablet Take 1 tablet by mouth once daily. Take on empty stomach. For Thyroid - omeprazole (PRILOSEC) 40 mg capsule Take 1 capsule by mouth daily before breakfast. 1/2 hr before meal. - potassium chloride (K-TAB) 10 mEq tablet Take 1 tablet by mouth twice daily. - Spirometers and Accessories magdalena Use 3 times a day, each time blow into it for 10 reps - XARELTO 15 mg tablet Take 15 mg by mouth daily with dinner. - brimonidine (ALPHAGAN P) 0.15 % ophthalmic solution Use 1 Drop in the right eye twice daily. - timolol maleate (TIMOPTIC) 0.5 % ophthalmic solution Use 1 Drop in the right eye twice daily. - >Zippered Compression Knee High 30-40 mm custom CUSTOM MEASURE FOR KNEE HIGH ANGELO COMPRESSION STOCKINGS, 30-40 MM, WITH ZIPPERS PLEASE. IF UNABLE, PLEASE REFER TO [facility]. DX: EDEMA - latanoprost (XALATAN) 0.005 % ophthalmic solution 1 Drop daily at bedtime. - TRAVATAN Z 0.004 % Drop daily at bedtime. - Cholecalciferol, Vitamin D3, 2,000 unit ORAL Cap Take one(1) tablet two(2) times daily. 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 Urgency of urination [R39.15] 02/20/2009 06/14/2020 Urge incontinence [N39.41] 02/20/2009 08/06/2016 Female stress incontinence [N39.3] 02/20/2009 08/06/2016 Nocturia [R35.1] 02/20/2009 08/06/2016 Symptomatic menopausal or female climacteric st*02/20/2009 08/06/2016 Postmenopausal atrophic vaginitis [N95.2] 02/20/2009 06/14/2020 Disorder of bone and cartilage, unspecified [M8*02/20/2009 03/24/2012 Osteoporosis with current pathological fracture*06/10/2010 Vitamin D deficiency [E55.9] 06/13/2010 Incisional hernia [K43.2] 12/14/2012 08/06/2016 Mixed hyperlipidemia [E78.2] 08/06/2016 Pedal edema [R60.0] 12/04/2016 Pulmonary hypertension (HCC) [I27.20] 05/07/2017 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 Normal [facility] CBC W Auto Differential pane l (Bld)on 01-11-2024 Basophils (Bld) [#/Vol] 0.04 10*3/uL [facility] Basophils/100 WBC (Bld) 0.7 % C [facility] Differential cell count method Nom (Bld) Auto [facility] Eosinophils (Bld) [#/Vol] 0.34 10*3/uL [facility] Eosinophils/100 WBC (Bld) 6.0 % [facility] Erythrocyte distribution width (RBC) [Ratio] 13.5 % 11.5 - 15.0 % [facility] Hematocrit (Bld) [Volume fraction] 33.9 % Low 36.0 - 46.0 % [facility] Hemoglobin (Bld) [Mass/Vol] 10.5 g/dL Low 11.5 - 15.5 g/dL [facility] Immature granulocytes (Bld) [#/Vol] [facility] Immature granulocytes/100 WBC (Bld) 0.2 % [facility] Interpretation and review of laboratory results Abnormal [facility] Lymphocytes (Bld) [#/Vol] 1.55 10*3/uL [facility] Lymphocytes/100 WBC (Bld) 27.3 % [facility] MCH (RBC) [Entitic mass] 30.5 pg 26. 0 - 34.0 pg [facility] MCHC (RBC) [Mass/Vol] 31.0 g/dL 30.5 - 36.0 g/dL [facility] MCV (RBC) [Entitic vol] 98.5 fL 80.0 - 100.0 fL [facility] Monocytes (Bld) [#/Vol] 0.61 10*3/uL [facility] Monocytes/100 WBC (Bld) 10.8 % C [facility] Neutrophils (Bld) [#/Vol] 3.12 10*3/uL [facility] Neutrophils/100 WBC (Bld) 55.0 % [facility] Nucleated RBC (Bld) [#/Vol] [facility] Nucleated RBC/100 WBC (Bld) [Ratio] 0.0 % /100 WBC [facility] Platelet mean volume (Bld) [Entitic vol] 10.3 fL 9.0 - 12.7 fL [facility] Platelets (Bld) [#/Vol] 190 10*3/uL [facility] RBC (Bld) [#/Vol] 3.44 10*6/uL Low 3.90 - 5.2 0 m/uL [facility] WBC (Bld) [#/Vol] 5.67 10*3/uL [facility] Basophils (Bld) [#/Vol] 0.04 10*3/uL Normal <0.11 [facility] Comment on above: Order Comment: Speci men Type: BLOOD SPECIMENOrdering Facility: [facility] Address: [address] [place] [address] Performed By: #### 5 7021-8 ####[facility] [id number] [place] [address] [place] Basophils/100 WBC (Bld) 0.7 % Normal C [facility] Comment on above: Order Comment: Speci men Type: BLOOD SPECIMENOrdering Facility: [facility] Address: [address] [place] [address] Performed By: #### 5 7021-8 ####[facility] [id number] [place] [address] [place] Differential cell count method Nom (Bld) Auto Normal [facility] Comment on above: Order Comment: Speci men Type: BLOOD SPECIMENOrdering Facility: [facility] Address: [address] [place] [address] Performed By: #### 5 7021-8 ####[facility] [id number] [place] [address] [place] Eosinophils (Bld) [#/Vol] 0.34 10*3/uL Normal <0.46 [facility] Comment on above: Order Comment: Speci men Type: BLOOD SPECIMENOrdering Facility: [facility] Address: [address] [place] [address] Performed By: #### 5 7021-8 ####[facility] [id number] [place] [address] [place] Eosinophils/100 WBC (Bld) 6.0 % Normal [facility] Comment on above: Order Comment: Speci men Type: BLOOD SPECIMENOrdering Facility: [facility] Address: [address] [place] [address] Performed By: #### 5 7021-8 ####[facility] [id number] [place] [address] [place] Erythrocyte distribution width (RBC) [Ratio] 13.5 % Normal 11.5-15.0 [facility] Comment on above: Order Comment: Speci men Type: BLOOD SPECIMENOrdering Facility: [facility] Address: [address] [place] [address] Performed By: #### 5 7021-8 ####[facility] [id number] [place] [address] [place] Hematocrit (Bld) [Volume fraction] 33.9 % Low 36.0-46.0 [facility] Comment on above: Order Comment: Speci men Type: BLOOD SPECIMENOrdering Facility: [facility] Address: [address] [place] [address] Performed By: #### 5 7021-8 ####[facility] [id number] [place] [address] [place] Hemoglobin (Bld) [Mass/Vol] 10.5 g/dL Low 11.5-15.5 [facility] Comment on above: Order Comment: Speci men Type: BLOOD SPECIMENOrdering Facility: [facility] Address: [address] [place] [address] Performed By: #### 5 7021-8 ####[facility] [id number] [place] [address] [place] Immature granulocytes (Bld) [#/Vol] 10*3/uL Normal <0.10 [facility] Comment on above: Order Comment: Speci men Type: BLOOD SPECIMENOrdering Facility: [facility] Address: [address] [place] [address] Performed By: #### 5 7021-8 ####[facility] [id number] [place] [address] [place] Immature granulocytes/100 WBC (Bld) 0.2 % Normal [facility] Comment on above: Order Comment: Speci men Type: BLOOD SPECIMENOrdering Facility: [facility] Address: [address] [place] [address] Performed By: #### 5 7021-8 ####[facility] [id number] [place] [address] [place] Lymphocytes (Bld) [#/Vol] 1.55 10*3/uL Normal 1.00-4.00 [facility] Comment on above: Order Comment: Speci men Type: BLOOD SPECIMENOrdering Facility: [facility] Address: [address] [place] [address] Performed By: #### 5 7021-8 ####[facility] [id number] [place] [address] [place] Lymphocytes/100 WBC (Bld) 27.3 % Normal [facility] Comment on above: Order Comment: Speci men Type: BLOOD SPECIMENOrdering Facility: [facility] Address: [address] [place] [address] Performed By: #### 5 7021-8 ####[facility] [id number] [place] [address] [place] MCH (RBC) [Entitic mass] 30.5 pg Normal 26.0-34.0 [facility] Comment on above: Order Comment: Speci men Type: BLOOD SPECIMENOrdering Facility: [facility] Address: [address] [place] [address] Performed By: #### 5 7021-8 ####[facility] [id number] [place] [address] [place] MCHC (RBC) [Mass/Vol] 31.0 g/dL Normal 30.5-36.0 [facility] Comment on above: Order Comment: Speci men Type: BLOOD SPECIMENOrdering Facility: [facility] Address: [address] [place] [address] Performed By: #### 5 7021-8 ####[facility] LABCLIA [id number] [place] [address] [place] MCV (RBC) [Entitic vol] 98.5 fL Normal 80.0-100.0 C [facility] Comment on above: Order Comment: Speci men Type: BLOOD SPECIMENOrdering Facility: [facility] Address: [address] [place] [address] Performed By: #### 5 7021-8 ####[facility] LABCLIA [id number] [place] [address] [place] Monocytes (Bld) [#/Vol] 0.61 10*3/uL Normal <0.87 [facility] Comment on above: Order Comment: Speci men Type: BLOOD SPECIMENOrdering Facility: [facility] Address: [address] [place] [address] Performed By: #### 5 7021-8 ####[facility] LABCLIA [id number] [place] [address] [place] Monocytes/100 WBC (Bld) 10.8 % Normal [facility] Comment on above: Order Comment: Speci men Type: BLOOD SPECIMENOrdering Facility: [facility] Address: [address] [place] [address] Performed By: #### 5 7021-8 ####[facility] LABCLIA [id number] [place] [address] [place] Neutrophils (Bld) [#/Vol] 3.12 10*3/uL Normal 1.45-7.50 [facility] Comment on above: Order Comment: Speci men Type: BLOOD SPECIMENOrdering Facility: [facility] Address: [address] [place] [address] Performed By: #### 5 7021-8 ####[facility] LABCLIA [id number] [place] [address] [place] Neutrophils/100 WBC (Bld) 55.0 % Normal [facility] Comment on above: Order Comment: Speci men Type: BLOOD SPECIMENOrdering Facility: [facility] Address: [address] [place] [address] Performed By: #### 5 7021-8 ####[facility] LABCLIA [id number] [place] [address] [place] Nucleated RBC (Bld) [#/Vol] 10*3/uL Normal <0.01 [facility] Comment on above: Order Comment: Speci men Type: BLOOD SPECIMENOrdering Facility: [facility] Address: [address] [place] [address] Performed By: #### 5 7021-8 ####[facility] LABCLIA [id number] [place] [address] [place] Nucleated RBC/100 WBC (Bld) [Ratio] 0.0 /100 WBC Normal [facility] Comment on above: Order Comment: Speci men Type: BLOOD SPECIMENOrdering Facility: [facility] Address: [address] [place] [address] Performed By: #### 5 7021-8 ####[facility] LABCLIA [id number] [place] [address] [place] Platelet mean volume (Bld) [Entitic vol] 10.3 fL Normal 9.0-12.7 [facility] Comment on above: Order Comment: Speci men Type: BLOOD SPECIMENOrdering Facility: [facility] Address: [address] [place] [address] Performed By: #### 5 7021-8 ####[facility] LABIA [id number] [place] [address] [place] Platelets (Bld) [#/Vol] 190 10*3/uL Normal 150-400 [facility] Comment on above: Order Comment: Speci men Type: BLOOD SPECIMENOrdering Facility: [facility] Address: [address] [place] [address] Performed By: #### 5 7021-8 ####[facility] [id number] [place] [address] [place] RBC (Bld) [#/Vol] 3.44 10*6/uL Low 3.90-5.[address] [facility] Comment on above: Order Comment: Speci men Type: BLOOD SPECIMENOrdering Facility: [facility] Address: [address] [place] [address] Performed By: #### 5 7021-8 ####[facility] [id number] [place] [address] [place] WBC (Bld) [#/Vol] 5.67 10*3/uL Normal 3.70-11.[address] [facility] Comment on above: Order Comment: Speci men Type: BLOOD SPECIMENOrdering Facility: [facility] Address: [address] [place] [address] Performed By: #### 5 7021-8 ####[facility] [id number] [place] [address] [place] CNOVon 01-11-2024 CNOV Office Visit (INTMWS) REINIER ELIZABETH ([id number]) 1935 F NFR Date Time Provider Department 7/15/24 2:20 PM ANAY SCHULER During your visit today, we recorded the following information about you: Pulse Respiration Blood pressure Weight 61/minute 16/minute 128/72 64 kg Height 1.575 m Anay Schuler MD 01/11/2024 6:08 PM Signed Reason for Visit Patient presents with: Follow Up Reinier Elizabeth is a 86 year old female who presents here today for Above Complaints.. Health Maintenance ADVANCE DIRECTIVE DISCUSSION HPI Here with her daughter zaina, today and notes that she is feeling pretty well and has no major concerns. Reinier is a 86-year-old woman with a past medical history of hypertension, hyperlipidemia, pulmonary hypertension, atrial fibrillation likely from the pulmonary hypertension sequelae, CKD and anemia from recurrent GI bleeds supposedly from from anticoagulation. 01/19: In the past year the patient was started on Prolia injections for osteoporosis. Was treated for anemia, there was some concern with hypertension and heart disease. In the past year we have had [...] is a little better. She is on cozaar 50, coreg 12.5, lasix, 20 mgs daily, 3 days a week in addition to the hydralazine. Lasix was decreased because of a worsening GFR more swelling now that the lasix has been cut back, She does use compression stockings She is exercising using the bike at home. Taking the potassium We have not had her labs done in the past 2 to 3 months so we would like to recheck her thyroid along with her blood counts especially to check what her CBC is like. She has an upcoming EGD by [facility] the cloth baler. Her brother calls her calls her every day, visits every Thursday. Has a decent flower bed. No problem-specific Assessment AND Plan notes found for this encounter. PAST MEDICAL HISTORY Diagnosis Date Acquired keratoderma Lichen sclerosis Anemia Anticoagulant long-term use indication: stroke prevention atrial fibrillation At risk for bleeding associated with anticoagulants HAS-BLED score = 2 (age, bleeding) At risk for stroke [id number] = 4 (HTN, age2, female gender) Benign [...] - May. right eye left eye - [facility] . Dr Gao REPAIR FIRST ABDOMINAL WALL HERNIA 12/14/2012 2cm defect - Parietex Composite ventral patch 6cm STRESS TEST 04/14/2017 PAWAN 02/04/2018 FAMILY HISTORY Problem Relation Age of Onset [...] quittin.5 Smokeless tobacco: Never Tobacco comments: Quit 1969's 4-5 cig per day Vaping Use Vaping Use: Never used Substance Use Topics Alcohol use: No Drug use: No Past medical history, appointments, medications, allergies (more content not included)... Normal [facility] Basophil percentageOrdered B y: Dacia Sewell on 10-28-2023 Basophil percentage 2.3 mg/dL 2.5-4.9 [facility] Chloride [Moles/Vol] 113 mmol/L 98-107 [facility] Glucose [Mass/Vol] 95 mg/dL 74-106 [facility] Hemoglobin (Bld) [Mass/Vol] 9.7 g/dL 12.0-15.0 [facility] Potassium [Moles/Vol] 4.0 mmol/L 3.5-5.1 [facility] Sodium [Moles/Vol] 141 mmol/L 136-145 [facility] WBC (Bld) [#/Vol] 5.3 10*3/uL 4.4-11.0 [facility] Determination of erythrocyte mean corpuscular volume (MCV)Ordered By: Dacia Sewell on 10-28-2023 MCV (RBC) [Entitic vol] 95.9 fL 81-99 [facility] Erythrocyte distribution wid th ratioOrdered By: Dacia Sewell on 10-28-2023 Erythrocyte distribution width (RBC) [Ratio] 12.8 % 11.6-14.6 [facility] Erythrocyte distribution wid th standard deviationOrdered By: Dacia Sewell on 10-28-2023 Erythrocyte distribution width (RBC) [Entitic vol] 45.1 fL 35.1-43.9 [facility] Hematocrit Auto (Bld) [Volum e fraction]Ordered By: Dacia Sewell on 10-28-2023 Hematocrit (Bld) [Volume fraction] 30.5 % 37-47 [facility] Iron measurement (mass/mass) Ordered By: Dacia Sewell on 10-28-2023 Iron (Unsp spec) [Mass/Mass] 62 ug/dL 50-170 [facility] Laboratory - Chemistry and C hemistry - challengeOrdered By: Dacia Sewell on 10-28-2023 CO2 [Moles/Vol] 23.0 mmol/L 21.0-32.0 [facility] Ferritin [Mass/Vol] 41 ng/mL 8-252 [facility] Urea nitrogen/Creatinine [Mass ratio] 18.7 mg/mg 10-20 [facility] Laboratory - Hematology and Cell countsOrdered By: Dacia Sewell on 10-28-2023 MCH (RBC) [Entitic mass] 30.5 pg 27.0-32.0 [facility] MCHC (RBC) [Mass/Vol] 31.8 g/dL 32-36 [facility] Platelet mean volume (Bld) [Entitic vol] 10.2 fL 6.2-12.0 [facility] Platelets (Bld) [#/Vol] 185 10*3/uL 150-450 [facility] No Panel InformationOrdered By: Dacia Sewell on 10-28-2023 Estimated GFR (MDRD) Amer 48 mL/min >60 [facility] Comment on above: GFR Calc Estimated GFR (MDRD) Non-Af Amer 40 mL/min >60 [facility] Comment on above: Non- GFR Calc Total Iron Binding Capacity 262 ug/dL 250-450 [facility] RBC Auto (Bld) [#/Vol]Ordere d By: Dacia Sewell on 10-28-2023 RBC (Bld) [#/Vol] 3.18 10*6/uL 4.2-5.4 [facility] Serum or plasma calcium dex urement (mass/volume)Ordered By: Dacia Sewell on 10-28-2023 Calcium [Mass/Vol] 8.6 mg/dL 8.5-10.1 [facility] Serum or plasma creatinine m easurement (mass/volume)Ordered By: Dacia Sewell on 10-28-2023 Creatinine [Mass/Vol] 1.34 mg/dL 0.55-1.02 [facility] Comment on above: The validity of the calculated GFR & GFRAA in patients over 70 years has not been determined. Clinical correlation is essential. Serum or plasma urea nitroge n measurement (mass/volume)Ordered By: Dacia Sewell on 10-28-2023 Urea nitrogen [Mass/Vol] 25 mg/dL 7-18 [facility] Thin prep Papanicolaou smear with manual screeningOrdered By: Dacia Sewell on 10-28-2023 Thin prep Papanicolaou smear with manual screening 3.6 g/dL 3.2-5.0 [facility] Culture, urineOrdered By: Julia Sewell on 08-20-2023 Bacteria identified Cx Nom (U) Culture exhibits no growth. [facility] Bacteria identified Cx Nom (U) Culture exhibits no growth. [facility] CBC W Auto Differential pane l (Bld)on 08-18-2023 Basophils (Bld) [#/Vol] 0.07 10*3/uL <0.11 k/uL [facility] Basophils/100 WBC (Bld) 1.2 % C [facility] Differential cell count method Nom (Bld) Auto [facility] Eosinophils (Bld) [#/Vol] 0.36 10*3/uL <0.46 k/uL [facility] Eosinophils/100 WBC (Bld) 6.4 % [facility] Erythrocyte distribution width (RBC) [Ratio] 13.3 % 11.5 - 15.0 % [facility] Hematocrit (Bld) [Volume fraction] 32.1 % Low 36.0 - 46.0 % [facility] Hemoglobin (Bld) [Mass/Vol] 10.7 g/dL Low 11.5 - 15.5 g/dL [facility] Immature granulocytes (Bld) [#/Vol] <0.10 k/uL [facility] Immature granulocytes/100 WBC (Bld) 0.4 % [facility] Lymphocytes (Bld) [#/Vol] 1.71 10*3/uL 1.00 - 4.00 k/uL [facility] Lymphocytes/100 WBC (Bld) 30.3 % [facility] MCH (RBC) [Entitic mass] 32.7 pg 26. 0 - 34.0 pg [facility] MCHC (RBC) [Mass/Vol] 33.3 g/dL 30.5 - 36.0 g/dL [facility] MCV (RBC) [Entitic vol] 98.2 fL 80.0 - 100.0 fL [facility] Monocytes (Bld) [#/Vol] 0.54 10*3/uL <0.87 k/uL [facility] Monocytes/100 WBC (Bld) 9.6 % C [facility] Neutrophils (Bld) [#/Vol] 2.95 10*3/uL 1.45 - 7.50 k/uL [facility] Neutrophils/100 WBC (Bld) 52.1 % [facility] Nucleated RBC (Bld) [#/Vol] <0.01 k/uL [facility] Nucleated RBC/100 WBC (Bld) [Ratio] 0.0 /100 WBC [facility] Platelet mean volume (Bld) [Entitic vol] 10.1 fL 9.0 - 12.7 fL [facility] Platelets (Bld) [#/Vol] 208 10*3/uL 150 - 400 k/uL [facility] RBC (Bld) [#/Vol] 3.27 10*6/uL Low 3.90 - 5.2 0 m/uL [facility] WBC (Bld) [#/Vol] 5.65 10*3/uL 3.70 - 11. 00 k/uL [facility] Renal function 2000 panelon 08-18-2023 Albumin [Mass/Vol] 4.0 g/dL 3.9 - 4.9 g/dL [facility] Anion gap [Moles/Vol] 8 mmol/L Low 9 - 18 mmol/L [facility] Calcium [Mass/Vol] 9.0 mg/dL 8.5 - 10. 2 mg/dL [facility] Chloride [Moles/Vol] 110 mmol/L High 97 - 10 5 mmol/L [facility] CO2 [Moles/Vol] 24 mmol/L 22 - 30 mmol/L [facility] Creatinine [Mass/Vol] 1.47 mg/dL High 0.58 - 0.96 mg/dL [facility] Estimated Glomerular Filtration Rate 35 mL/min/1.73m Low >=60 mL/min/1.73m [facility] Glucose [Mass/Vol] 84 mg/dL 74 - 99 mg/dL [facility] Phosphate [Mass/Vol] 2.9 mg/dL 2.7 - 4 .8 mg/dL [facility] Potassium [Moles/Vol] 4.7 mmol/L 3.7 - 5.1 mmol/L [facility] Sodium [Moles/Vol] 142 mmol/L 136 - 144 mmol/L [facility] Urea nitrogen [Mass/Vol] 26 mg/dL High 7 - 21 mg/d L [facility] T4 FREE/FREE THYROXon 2023 Free T4 [Mass/Vol] 1.4 ng/dL 0.9 - 1.7 ng/dL [facility] TSH BLDon 08-18-2023 TSH Qn 2.100 m[IU]/L 0.270 - 4.200 mIU/L [facility] Absolute lymphocyte countOrd ered By: Nirav Cain on 07-16-2023 Lymphocytes Auto (Unsp spec) [#/Vol] 1.20 10*3/uL 0.83-4.51 [facility] Automated lymphocyte count a s percentage of total leukocytesOrdered By: Nirav Cain on 07-16-2023 Lymphocytes/100 WBC Auto (Unsp spec) 18.8 % 19-41 [facility] Basophil percentageOrdered B y: Nirav Cain on 07-16-2023 Hemoglobin (Bld) [Mass/Vol] 9.1 g/dL 12.0-15.0 [facility] Basophils/100 WBC (Bld) 0.9 % 0-1 [facility] Chloride [Moles/Vol] 112 mmol/L 98-107 [facility] Eosinophils/100 WBC (Bld) 13.1 % 0-5 [facility] Glucose [Mass/Vol] 107 mg/dL 74-106 [facility] Comment on above: Fasting Glucose resu lt from 100 to 125 mg/dL suggests IMPAIRED HOMEOSTASIS per A.D.A. criteria. Monocytes/100 WBC (Bld) 8.3 % 0-10 [facility] Neutrophils (Bld) [#/Vol] 3.7 10*3/uL 2.0-7.7 [facility] Neutrophils/100 WBC (Bld) 58.6 % 47-70 [facility] Potassium [Moles/Vol] 3.9 mmol/L 3.5-5.1 [facility] Sodium [Moles/Vol] 141 mmol/L 136-145 [facility] WBC (Bld) [#/Vol] 6.4 10*3/uL 4.4-11.0 [facility] Determination of erythrocyte mean corpuscular volume (MCV)Ordered By: Nirav Cain on 07-16-2023 MCV (RBC) [Entitic vol] 96.5 fL 81-99 [facility] Erythrocyte distribution wid th ratioOrdered By: Nirav Cain on 07-16-2023 Erythrocyte distribution width (RBC) [Ratio] 12.7 % 11.6-14.6 [facility] Erythrocyte distribution wid th standard deviationOrdered By: Nirav Cain on 07-16-2023 Erythrocyte distribution width (RBC) [Entitic vol] 44.6 fL 35.1-43.9 [facility] Hematocrit Auto (Bld) [Volum e fraction]Ordered By: Nirav Cian on 07-16-2023 Hematocrit (Bld) [Volume fraction] 28.1 % 37-47 [facility] Immature granulocytes/100 WB C Auto (Bld)Ordered By: Nirav Cain on 07-16-2023 Immature granulocytes/100 WBC (Bld) 0.300 % 0.0-0.9 [facility] Comment on above: IG% - Immature Granu locytes (promyelocytes, myelocytes and metamyelocytes) > 1% indicates that a LEFT SHIFT is Present. Iron measurement (mass/mass) Ordered By: Nirav Cain on 07-16-2023 Iron (Unsp spec) [Mass/Mass] 27 ug/dL 50-170 [facility] Laboratory - Chemistry and C hemistry - challengeOrdered By: Nirav Cain on 07-16-2023 CO2 [Moles/Vol] 25.0 mmol/L 21.0-32.0 [facility] Ferritin [Mass/Vol] 142 ng/mL 8-252 [facility] Urea nitrogen/Creatinine [Mass ratio] 18.3 mg/mg 10-20 [facility] Laboratory - Hematology and Cell countsOrdered By: Nirav Cain on 07-16-2023 MCH (RBC) [Entitic mass] 30.9 pg 27.0-32.0 [facility] MCHC (RBC) [Mass/Vol] 32.0 g/dL 32-36 [facility] Nucleated RBC/100 WBC (Bld) [Ratio] 0 % 0-5 [facility] Platelets (Bld) [#/Vol] 114 10*3/uL 150-450 [facility] No Panel InformationOrdered By: Nirav Cain on 07-16-2023 Estimated Creatinine Clearance Calc 18.93 ml/min [facility] Estimated GFR (MDRD) Amer 33 mL/min >60 [facility] Comment on above: GFR Calc Estimated GFR (MDRD) Non-Af Amer 27 mL/min >60 [facility] Comment on above: Non- GFR Calc Total Iron Binding Capacity 190 ug/dL 250-450 [facility] Platelet mean volume Zack-Ec ker (Bld) [Entitic vol]Ordered By: Nirav Cain on 07-16-2023 Platelet mean volume (Bld) [Entitic vol] 9.3 fL 6.2-12.0 [facility] RBC Auto (Bld) [#/Vol]Ordere d By: Nirav Cain on 07-16-2023 RBC (Bld) [#/Vol] 2.59 10*6/uL 4.2-5.4 [facility] Serum or plasma calcium dex urement (mass/volume)Ordered By: Nirav Cain on 07-16-2023 Calcium [Mass/Vol] 8.8 mg/dL 8.5-10.1 [facility] Serum or plasma creatinine m easurement (mass/volume)Ordered By: Nirav Cain on 07-16-2023 Creatinine [Mass/Vol] 1.86 mg/dL 0.55-1.02 [facility] Comment on above: The validity of the calculated GFR & GFRAA in patients over 70 years has not been determined. Clinical correlation is essential. Serum or plasma iron saturat ion measurement (mass fraction)Ordered By: Nirav Cain on 07-16-2023 Iron saturation [Mass fraction] 14.2 % 15.0-55.0 [facility] Serum or plasma urea nitroge n measurement (mass/volume)Ordered By: Nirav Cain on 07-16-2023 Urea nitrogen [Mass/Vol] 34 mg/dL 7-18 [facility] Thin prep Papanicolaou smear with manual screeningOrdered By: Nirav Cain on 07-16-2023 Thin prep Papanicolaou smear with manual screening 4 5-15 [facility] Basophil percentageOrdered B y: Akosua Sewell on 07-14-2023 Basophil percentage 4.0 mg/dL 2.5-4.9 [facility] Bilirubin [Mass/Vol] 0.80 mg/dL 0.20-1.00 [facility] Comment on above: For patients on eltr ombopag therapy, use of Dimension [place] TBIL is not recommended. Protein [Mass/Vol] 6.4 g/dL 6.4-8.2 [facility] Laboratory - Chemistry and C hemistry - challengeOrdered By: Akosua Sewell on 07-14-2023 ALP [Catalytic activity/Vol] 49 U/L 45-117 [facility] ALT [Catalytic activity/Vol] 23 U/L 13-56 [facility] Globulin (S) [Mass/Vol] 3.4 g/dL 2.2-4.2 [facility] Magnesium [Mass/Vol] 1.7 mg/dL 1.6-2.6 [facility] No Panel InformationOrdered By: Akosua Sewell on 07-14-2023 Thyroid Stimulating Hormone (TSH) 0.65 uIU/mL 0.358-3.74 [facility] Serum or plasma albumin dex urement (mass/volume)Ordered By: Akosua Sewell on 07-14-2023 Albumin [Mass/Vol] 3.0 g/dL 3.2-5.0 [facility] Serum or plasma albumin/glob ulin mass ratioOrdered By: Akosua Sewell on 07-14-2023 Albumin/Globulin [Mass ratio] 0.9 {ratio} 0.9-2.4 [facility] Thin prep Papanicolaou smear with manual screeningOrdered By: Akosua Sewell on 07-14-2023 Thin prep Papanicolaou smear with manual screening 20 U/L 15-37 [facility] Absolute lymphocyte countOrd ered By: Pili Chris on 07-13-2023 Lymphocytes Auto (Unsp spec) [#/Vol] 1.52 10*3/uL 0.83-4.51 [facility] Basophil percentageOrdered B y: Pili Chris on 07-13-2023 Basophil percentage 25-50 SEEN /hpf 0-5 [facility] Basophils/100 WBC (Bld) 0.4 % 0-1 [facility] Chloride [Moles/Vol] 112 mmol/L 98-107 [facility] Eosinophils/100 WBC (Bld) 2.6 % 0-5 [facility] Glucose [Mass/Vol] 165 mg/dL 74-106 [facility] Comment on above: Fasting Glucose resu lt greater than or equal to 126 mg/dL suggests DIABETES MELLITUS per A.D.A. criteria. Neutrophils (Bld) [#/Vol] 3.3 10*3/uL 2.0-7.7 [facility] Neutrophils/100 WBC (Bld) 62.0 % 47-70 [facility] Potassium [Moles/Vol] 3.8 mmol/L 3.5-5.1 [facility] Sodium [Moles/Vol] 142 mmol/L 136-145 [facility] WBC (Bld) [#/Vol] 5.4 10*3/uL 4.4-11.0 [facility] Bilirubin Test strip Ql (U)O rdered By: Pili Chris on 07-13-2023 Bilirubin Ql (U) Negative Negative [facility] Blood erythrocytes count (nu mber/volume)Ordered By: Pili Chris on 07-13-2023 RBC (Bld) [#/Vol] 3.21 10*6/uL 4.2-5.4 [facility] Blood hemoglobin measurement (mass/volume)Ordered By: Pili Chris on 07-13-2023 Hemoglobin (Bld) [Mass/Vol] 10.0 g/dL 12.0-15.0 [facility] Blood lymphocytes/100 leukoc ytesOrdered By: Pili Chris on 07-13-2023 Lymphocytes/100 WBC (Bld) 28.3 % 19-41 [facility] Blood monocytes/100 leukocyt esOrdered By: Pili Chris on 07-13-2023 Monocytes/100 WBC (Bld) 6.3 % 0-10 [facility] Blood platelet mean volumeOr dered By: Pili Chris on 07-13-2023 Platelet mean volume (Bld) [Entitic vol] 9.6 fL 6.2-12.0 [facility] Culture, urineOrdered By: Pretty Chris on 07-13-2023 Bacteria identified Cx Nom (U) Presumptive E. coli [facility] Bacteria identified Cx Nom (U) Presumptive E. coli [facility] Determination of erythrocyte mean corpuscular volume (MCV)Ordered By: Pili Chris on 07-13-2023 MCV (RBC) [Entitic vol] 96.3 fL 81-99 [facility] Hematocrit Auto (Bld) [Volum e fraction]Ordered By: Pili Chris on 07-13-2023 Hematocrit (Bld) [Volume fraction] 30.9 % 37-47 [facility] Ketones Test strip Ql (U)Ord ered By: Pili Chris on 07-13-2023 Ketones Ql (U) Negative Negative [facility] Laboratory - Chemistry and C hemistry - challengeOrdered By: Pili Chris on 07-13-2023 CO2 [Moles/Vol] 24.0 mmol/L 21.0-32.0 [facility] Urea nitrogen/Creatinine [Mass ratio] 17.1 mg/mg 10-20 [facility] Laboratory - Chemistry and C hemistry - challengeOrdered By: Akosua Sewell on 07-13-2023 Natriuretic peptide B (Bld) [Mass/Vol] 217.9 pg/mL 0-100 [facility] Laboratory - Hematology and Cell countsOrdered By: Pili Chris on 07-13-2023 Erythrocyte distribution width (RBC) [Entitic vol] 43.3 fL 35.1-43.9 [facility] Erythrocyte distribution width (RBC) [Ratio] 12.4 % 11.6-14.6 [facility] Immature granulocytes/100 WBC (Bld) 0.400 % 0.0-0.9 [facility] Comment on above: IG% - Immature Granu locytes (promyelocytes, myelocytes and metamyelocytes) > 1% indicates that a LEFT SHIFT is Present. MCH (RBC) [Entitic mass] 31.2 pg 27.0-32.0 [facility] Nucleated RBC/100 WBC (Bld) [Ratio] 0 % 0-5 [facility] Laboratory - Microbiology an d Antimicrobial susceptibilityOrdered By: Pili Chris on 07-13-2023 SARS-CoV-2 (COVID-19) RNA GUERA+probe Ql (Unsp spec) [facility] [facility] MCHC Auto (RBC) [Mass/Vol]Or dered By: Pili Chris on 07-13-2023 MCHC (RBC) [Mass/Vol] 32.4 g/dL 32-36 [facility] Mucus LM Ql (Urine sed)Order ed By: Pili Chris on 07-13-2023 Mucus Ql (Urine sed) 0 SEEN /hpf [facility] Nitrite Test strip Ql (U)Ord ered By: Pili Chris on 07-13-2023 Nitrite Ql (U) Positive Negative [facility] No Panel InformationOrdered By: Akosua Sewell on 07-13-2023 Troponin I High Sensitivity 136 pg/mL 3.0-54.0 [facility] Comment on above: Critical Result(s) C alled at: 18:44:03 07/13/2023 by: JAKE MCKEON to jasiel javier rn pcu Results read back by same. Please Note: New Test Units and Gender Specific Reference Ranges. For more information see Policy Stat Procedure [place] High Sensitivity Troponin (TNIH) and attachments. No Panel InformationOrdered By: Pili Chris on 07-13-2023 Troponin I High Sensitivity 119 pg/mL 3.0-54.0 [facility] Comment on above: Please Note: New Jennie t Units and Gender Specific Reference Ranges. For more information see Policy Stat Procedure [place] High Sensitivity Troponin (TNIH) and attachments. Estimated GFR (MDRD) Amer 37 mL/min >60 [facility] Comment on above: GFR Calc Estimated GFR (MDRD) Non-Af Amer 30 mL/min >60 [facility] Comment on above: Non- GFR Calc Platelets bldOrdered By: Natalee Chris on 07-13-2023 Platelets (Bld) [#/Vol] 179 10*3/uL 150-450 [facility] Protein Test strip Ql (U)Ord ered By: Pili Chris on 07-13-2023 Protein Ql (U) 30 mg/dl Negative [facility] Respiratory pathogens detect ion panel by molecular detection methodOrdered By: Akosua Sewell on 07-13-2023 Respiratory pathogens DNA and RNA panel GUERA+probe (Resp) [facility] Respiratory pathogens DNA and RNA panel GUERA+probe (Resp) [facility] Serum or plasma calcium dex urement (mass/volume)Ordered By: Pili Chris on 07-13-2023 Calcium [Mass/Vol] 8.8 mg/dL 8.5-10.1 [facility] Serum or plasma creatinine m easurement (mass/volume)Ordered By: Pili Chris on 07-13-2023 Creatinine [Mass/Vol] 1.70 mg/dL 0.55-1.02 [facility] Comment on above: The validity of the calculated GFR & GFRAA in patients over 70 years has not been determined. Clinical correlation is essential. Serum or plasma urea nitroge n measurement (mass/volume)Ordered By: Pili Chris on 07-13-2023 Urea nitrogen [Mass/Vol] 29 mg/dL 7-18 [facility] Squamous epithelial cells de tection in urine sediment by light microscopyOrdered By: Pili Chris on 07-13-2023 Epithelial cells.squamous LM Ql (Urine sed) 0-5 SEEN /hpf 5-10 [facility] Thin prep Papanicolaou smear with manual screeningOrdered By: Pili Chris on 07-13-2023 Thin prep Papanicolaou smear with manual screening 6 11-10 [facility] Urine blood detectionOrdered By: Pili Chris on 07-13-2023 RBC Ql (U) 10 /ul Negative [facility] RBC Ql (U) 0-5 SEEN /hpf 0-5 [facility] Urine clarityOrdered By: Natalee Chris on 07-13-2023 Clarity (U) Sl. Cloudy Clear [facility] Urine color determinationOrd ered By: Pili Chris on 07-13-2023 Color (U) Yellow Yellow [facility] Urine glucose detectionOrder ed By: Pili Chris on 07-13-2023 Glucose Ql (U) Normal mg/dl Normal [facility] Urine leukocyte esterase det ection by dipstickOrdered By: Pili Chris on 07-13-2023 Leukocyte esterase Test strip Ql (U) 100 /ul Negative [facility] Urine pHOrdered By: Pili gentile on 07-13-2023 pH (U) 5.0 [pH] 5.0 - 8.0 [facility] Urine sediment bacteria coun t by microscopy (number/high power field)Ordered By: Pili Chris on 07-13-2023 Bacteria LM.HPF (Urine sed) [#/Area] 3 /[HPF] None Seen [facility] Urine specific gravity measu rementOrdered By: Pili Crhis on 07-13-2023 Specific gravity (U) [Rel density] 1.020 1.002-1.030 [facility] Urobilinogen Auto test strip Ql (U)Ordered By: Pili Chris on 07-13-2023 Urobilinogen Ql (U) Normal mg/dl Normal [facility] Whole blood hemoglobin A1c/t otal hemoglobin ratio (mass fraction)Ordered By: Akosua Sewell on 07-13-2023 HbA1c (Bld) [Mass fraction] 5.1 % 3.8-5.6 [facility] Comment on above: Normal < 5.7 % Predi abetic 5.7 - 6.4 % Diabetic >or= 6.5 % Please note range changes. XR Thoracic spine AP and Lat eral and Swimmerson 04-13-2023 IMPRESSION: No acute radiographic abnormality. Degenerative changes. Manager Validation: CANDY Transcribe Date/Time: Apr 13 2023 11:44A Dictated by : JUANITO PEREA DO This examination was interpreted and the report reviewed and electronically signed by: JUANITO PEREA DO on Apr 13 2023 11:48AM [facility] DIVISION OF RADIOLOGY * * *Final Report* * * DATE OF EXAM: Apr 09 2023 1:30PM WOX 5261 - XR THORACIC 3V AP/LAT/SWIMMERS / PROCEDURE REASON: multiple diagnoses * * * * Physician Interpretation * * * * EXAMINATION: XR THORACIC 3V AP/LAT/SWIMMERS PATIENT/TECHNOLOGIST PROVIDED HISTORY: Pain across the upper back at the level of the distal scapulas x several months. Intermittent in nature and without injury. CLINICAL INFORMATION: 87 years old Female with Osteoporosis without current pathological fracture, unspecified osteoporosis type. Mid back pain TECHNIQUE: XR THORACIC 3V AP/LAT/SWIMMERS Laterality: NOT APPLICABLE Number of different views (projections): 3 COMPARISON: Radiographs 09/25/2020 RESULT: Thoracic Spine: Counting reference: 12 paired ribs with vertebral body articulating with first set of ribs designated as T1. Alignment: Alignment is satisfactory. Vertebral bodies: Vertebral body heights are maintained. Osteopenia. Spine articulations: Endplate degenerative changes with endplate osteophytes throughout the thoracic spine. Other: Mild elevation of the LEFT hemidiaphragm with adjacent subsegmental atelectasis. DIVISION OF RADIOLOGY Provider, [facility] [place] - 04/13/2023 * * *Final Report* * * DATE OF EXAM: Apr 09 2023 1:30PM WOX 5261 - XR THORACIC 3V AP/LAT/SWIMMERS / PROCEDURE REASON: multiple diagnoses * * * * Physician Interpretation * * * * EXAMINATION: XR THORACIC 3V AP/LAT/SWIMMERS PATIENT/TECHNOLOGIST PROVIDED HISTORY: Pain across the upper back at the level of the distal scapulas x several months. Intermittent in nature and without injury. CLINICAL INFORMATION: 87 years old Female with Osteoporosis without current pathological fracture, unspecified osteoporosis type. Mid back pain TECHNIQUE: XR THORACIC 3V AP/LAT/SWIMMERS Laterality: NOT APPLICABLE Number of different views (projections): 3 COMPARISON: Radiographs 09/25/2020 RESULT: Thoracic Spine: Counting reference: 12 paired ribs with vertebral body articulating with first set of ribs designated as T1. Alignment: Alignment is satisfactory. Vertebral bodies: Vertebral body heights are maintained. Osteopenia. Spine articulations: Endplate degenerative changes with endplate osteophytes throughout the thoracic spine. Other: Mild elevation of the LEFT hemidiaphragm with adjacent subsegmental atelectasis. IMPRESSION IMPRESSION: No acute radiographic abnormality. Degenerative changes. Manager Validation: CANDY Transcribe Date/Time: Apr 13 2023 11:44A Dictated by : JUANITO PEREA DO This examination was interpreted and the report reviewed and electronically signed by: JUANITO PEREA DO on Apr 13 2023 11:48AM EST [facility] XR Thoracic spine AP and Lat eral and SwimmersOrdered By: Ccf Provider on 04-13-2023 [facility] HbA1c (Bld)on 04-10-2023 Average glucose Estimated from glycated hemoglobin (Bld) [Mass/Vol] 105 mg/dL [facility] HbA1c (Bld) [Mass fraction] 5.3 % 4.3 - 5.6 % [facility] TSH BLDon 04-10-2023 TSH Qn 1.520 m[IU]/L 0.270 - 4.200 mIU/L [facility] VITAMIN D 25 HYDROXYon 04-09 25-hydroxyvitamin D3 [Mass/Vol] 33.0 ng/mL 31.0 - 80.0 ng/mL [facility] XR THORACIC GENERAL 3V AP/LA T/SWIMMERSon 04-09-2023 [facility] XR Thoracic spine AP and Lat eral and Swimmerson 04-09-2023 Radiology Study observation (narrative) [facility] Basophil percentageOrdered B y: Dacia Sewell on 04-07-2023 Basophil percentage 2.7 mg/dL 2.5-4.9 [facility] Chloride [Moles/Vol] 116 mmol/L 98-107 [facility] Glucose [Mass/Vol] 108 mg/dL 74-106 [facility] Comment on above: Fasting Glucose resu lt from 100 to 125 mg/dL suggests IMPAIRED HOMEOSTASIS per A.D.A. criteria. Potassium [Moles/Vol] 4.3 mmol/L 3.5-5.1 [facility] Sodium [Moles/Vol] 143 mmol/L 136-145 [facility] Blood hemoglobin measurement (mass/volume)Ordered By: Dacia Sewell on 04-07-2023 Hemoglobin (Bld) [Mass/Vol] 10.9 g/dL 12.0-15.0 [facility] Hematocrit Auto (Bld) [Volum e fraction]Ordered By: Dacia Sewell on 04-07-2023 Hematocrit (Bld) [Volume fraction] 32.3 % 37-47 [facility] Laboratory - Chemistry and C hemistry - challengeOrdered By: Dacia Sewell on 04-07-2023 CO2 [Moles/Vol] 21.0 mmol/L 21.0-32.0 [facility] Urea nitrogen/Creatinine [Mass ratio] 19.6 mg/mg 10 [facility] No Panel InformationOrdered By: Dacia Sewell on 04-07-2023 Estimated GFR (MDRD) Amer 38 mL/min >60 [facility] Comment on above: GFR Calc Estimated GFR (MDRD) Non-Af Amer 32 mL/min >60 [facility] Comment on above: Non- GFR Calc Serum or plasma albumin dex urement (mass/volume)Ordered By: Dacia Sewell on 04-07-2023 Albumin [Mass/Vol] 3.4 g/dL 3.2-5.0 [facility] Serum or plasma calcium dex urement (mass/volume)Ordered By: Dacia Sewell on 04-07-2023 Calcium [Mass/Vol] 8.9 mg/dL 8.5-10.1 [facility] Serum or plasma creatinine m easurement (mass/volume)Ordered By: Dacia Sewell on 04-07-2023 Creatinine [Mass/Vol] 1.63 mg/dL 0.55-1.02 [facility] Comment on above: The validity of the calculated GFR & GFRAA in patients over 70 years has not been determined. Clinical correlation is essential. Serum or plasma urea nitroge n measurement (mass/volume)Ordered By: Dacia Sewell on 04-07-2023 Urea nitrogen [Mass/Vol] 32 mg/dL 01-13 [facility] CNOVon 01-27-2023 CNOV Office Visit (AGCARDPOB) REINIER ELIZABETH ([id number]) 1935 F NFR Date Time Provider Department 01/27/23 3:20 PM MAURA GILES AGCARDPOB During your visit today, we recorded the following information about you: Pulse Respiration Blood pressure Weight 74/minute 18/minute 165/77 59.4 kg Height 1.575 m Allison Gaxiola MA 01/27/2023 3:31 PM Signed Patient denies any cardiac issues or symptoms. Maura Giles MD 02/02/2023 7:41 PM Signed PRIMARY CARE PHYSICIAN: Anay Schuler [address] [place] [address] REFERRING PHYSICIAN: Fredis Marie MD ([facility]) [address] [address] Patient Care Team: Anay Schuler MD as PCP - General (Internal Medicine) Fredis Marie as [employer] Concierge (Cardiology) Yuriy Collins DO as [employer] Concierge (Gastroenterology) CHIEF COMPLAINT: Evaluation for stroke prevention HISTORY OF PRESENT ILLNESS: Ms. Elizabeth is a 87 year old female who presents today for evaluation, referred by [facility], accompanied today by her daughter. Ms. Elizabeth has history of atrial fibrillation that was [...] - May. right eye left eye - [facility] . Dr Gao REPAIR FIRST ABDOMINAL WALL HERNIA 12/14/2012 2cm defect - Parietex Composite ventral patch 6cm STRESS TEST 04/14/2017 PAWAN 02/04/2018 SOCIAL HISTORY Social History Tobacco Use Smoking status: Former Years: 5.00 Types: Cigarettes Quit date: 07/06/1976 Years since quittin.6 Smokeless tobacco: Never Tobacco comments: Quit 1969' [...] upright for 30 min. potassium chloride (K-TAB) 1 (more content not included)... Normal [facility] DXA-AXIAL SKELETONon 023 [facility] Basophil percentageOrdered B y: Dr. Sewell on 11-19-2022 Basophil percentage 2.8 mg/dL 2.5-4.9 [facility] Chloride [Moles/Vol] 112 mmol/L 98-107 [facility] Glucose [Mass/Vol] 100 mg/dL 74-106 [facility] Comment on above: Fasting Glucose resu lt from 100 to 125 mg/dL suggests IMPAIRED HOMEOSTASIS per A.D.A. criteria. Potassium [Moles/Vol] 3.9 mmol/L 3.5-5.1 [facility] Sodium [Moles/Vol] 140 mmol/L 136-145 [facility] Laboratory - Chemistry and C hemistry - challengeOrdered By: Dr. Sewell on 11-19-2022 CO2 [Moles/Vol] 17.0 mmol/L 21.0-32.0 [facility] Urea nitrogen/Creatinine [Mass ratio] 21.1 mg/mg 10-20 [facility] No Panel InformationOrdered By: Dr. Sewell on 11-19-2022 Estimated GFR (MDRD) Amer 42 mL/min >60 [facility] Comment on above: GFR Calc Estimated GFR (MDRD) Non-Af Amer 35 mL/min >60 [facility] Comment on above: Non- GFR Calc Serum or plasma albumin dex urement (mass/volume)Ordered By: Dr. Sewell on 11-19-2022 Albumin [Mass/Vol] 3.5 g/dL 3.2-5.0 [facility] Serum or plasma calcium dex urement (mass/volume)Ordered By: Dr. Sewell on 11-19-2022 Calcium [Mass/Vol] 8.6 mg/dL 8.5-10.1 [facility] Serum or plasma creatinine m easurement (mass/volume)Ordered By: Dr. Sewell on 11-19-2022 Creatinine [Mass/Vol] 1.52 mg/dL 0.55-1.02 [facility] Comment on above: The validity of the calculated GFR & GFRAA in patients over 70 years has not been determined. Clinical correlation is essential. Serum or plasma urea nitroge n measurement (mass/volume)Ordered By: Dr. Sewell on 11-19-2022 Urea nitrogen [Mass/Vol] 32 mg/dL 7-18 [facility] Absolute lymphocyte countOrd ered By: Celeste Bell on 11-10-2022 Lymphocytes Auto (Unsp spec) [#/Vol] 1.91 10*3/uL 0.83-4.51 [facility] Basophil percentageOrdered B y: Celeste Bell on 11-10-2022 Basophils/100 WBC (Bld) 0.8 % 0-1 [facility] Eosinophils/100 WBC (Bld) 5.2 % 0-5 [facility] Neutrophils (Bld) [#/Vol] 3.3 10*3/uL 2.0-7.7 [facility] Neutrophils/100 WBC (Bld) 53.3 % 47-70 [facility] WBC (Bld) [#/Vol] 6.2 10*3/uL 4.4-11.0 [facility] Blood erythrocytes count (nu mber/volume)Ordered By: Celeste Bell on 11-10-2022 RBC (Bld) [#/Vol] 3.57 10*6/uL 4.2-5.4 [facility] Blood hemoglobin measurement (mass/volume)Ordered By: Celeste Bell on 11-10-2022 Hemoglobin (Bld) [Mass/Vol] 11.1 g/dL 12.0-15.0 [facility] Blood lymphocytes/100 leukoc ytesOrdered By: Celeste Bell on 11-10-2022 Lymphocytes/100 WBC (Bld) 31.1 % 19-41 [facility] Blood monocytes/100 leukocyt esOrdered By: Celeste Bell on 11-10-2022 Monocytes/100 WBC (Bld) 9.4 % 0-10 [facility] Blood platelet mean volumeOr dered By: Celeste Bell on 11-10-2022 Platelet mean volume (Bld) [Entitic vol] 10.3 fL 6.2-12.0 [facility] Determination of erythrocyte mean corpuscular volume (MCV)Ordered By: Celeste Bell on 11-10-2022 MCV (RBC) [Entitic vol] 97.8 fL 81-99 [facility] Hematocrit Auto (Bld) [Volum e fraction]Ordered By: Celeste Bell on 11-10-2022 Hematocrit (Bld) [Volume fraction] 34.9 % 37-47 [facility] Laboratory - Hematology and Cell countsOrdered By: Celeste Bell on 11-10-2022 Erythrocyte distribution width (RBC) [Entitic vol] 44.7 fL 35.1-43.9 [facility] Erythrocyte distribution width (RBC) [Ratio] 12.5 % 11.6-14.6 [facility] Immature granulocytes/100 WBC (Bld) 0.200 % 0.0-0.9 [facility] Comment on above: IG% - Immature Granu locytes (promyelocytes, myelocytes and metamyelocytes) > 1% indicates that a LEFT SHIFT is Present. MCH (RBC) [Entitic mass] 31.1 pg 27.0-32.0 [facility] Nucleated RBC/100 WBC (Bld) [Ratio] 0 % 0-5 [facility] MCHC Auto (RBC) [Mass/Vol]Or dered By: Celeste Bell on 11-10-2022 MCHC (RBC) [Mass/Vol] 31.8 g/dL 32-36 [facility] Platelets bldOrdered By: Linda Bell on 11-10-2022 Platelets (Bld) [#/Vol] 190 10*3/uL 150-450 [facility] Absolute lymphocyte countOrd ered By: Dr. Sewell on 09-15-2022 Lymphocytes Auto (Unsp spec) [#/Vol] 1.42 10*3/uL 0.83-4.51 [facility] Basophil percentageOrdered B y: Dr. Schuler on 09-15-2022 Bilirubin [Mass/Vol] 0.70 mg/dL 0.20-1.00 [facility] Comment on above: For patients on eltr ombopag therapy, use of Dimension [place] TBIL is not recommended. Chloride [Moles/Vol] 113 mmol/L 98-107 [facility] Glucose [Mass/Vol] 97 mg/dL 74-106 [facility] Potassium [Moles/Vol] 3.8 mmol/L 3.5-5.1 [facility] Protein [Mass/Vol] 7.2 g/dL 6.4-8.2 [facility] Sodium [Moles/Vol] 144 mmol/L 136-145 [facility] Basophil percentageOrdered B y: Dr. Sewell on 09-15-2022 Basophil percentage 3.0 mg/dL 2.5-4.9 [facility] Basophils/100 WBC (Bld) 0.7 % 0-1 [facility] Eosinophils/100 WBC (Bld) 3.3 % 0-5 [facility] Neutrophils (Bld) [#/Vol] 4.5 10*3/uL 2.0-7.7 [facility] Neutrophils/100 WBC (Bld) 66.3 % 47-70 [facility] WBC (Bld) [#/Vol] 6.7 10*3/uL 4.4-11.0 [facility] Blood erythrocytes count (nu mber/volume)Ordered By: Dr. Sewell on 09-15-2022 RBC (Bld) [#/Vol] 3.10 10*6/uL 4.2-5.4 [facility] Blood hemoglobin measurement (mass/volume)Ordered By: Dr. Sewell on 09-15-2022 Hemoglobin (Bld) [Mass/Vol] 9.8 g/dL 12.0-15.0 [facility] Blood lymphocytes/100 leukoc ytesOrdered By: Dr. Sewell on 09-15-2022 Lymphocytes/100 WBC (Bld) 21.1 % 19-41 [facility] Blood monocytes/100 leukocyt esOrdered By: Dr. Sewell on 09-15-2022 Monocytes/100 WBC (Bld) 8.5 % 0-10 [facility] Blood platelet mean volumeOr dered By: Dr. eSwell on 09-15-2022 Platelet mean volume (Bld) [Entitic vol] 11.7 fL 6.2-12.0 [facility] Determination of erythrocyte mean corpuscular volume (MCV)Ordered By: Dr. Sewell on 09-15-2022 MCV (RBC) [Entitic vol] 99.0 fL 81-99 [facility] Hematocrit Auto (Bld) [Volum e fraction]Ordered By: Dr. Sewell on 09-15-2022 Hematocrit (Bld) [Volume fraction] 30.7 % 37-47 [facility] Laboratory - Chemistry and C hemistry - challengeOrdered By: Dr. Schuler on 09-15-2022 ALP [Catalytic activity/Vol] 63 U/L 45-117 [facility] ALT [Catalytic activity/Vol] 37 U/L 13-56 [facility] CO2 [Moles/Vol] 24.0 mmol/L 21.0-32.0 [facility] Globulin (S) [Mass/Vol] 3.6 g/dL 2.2-4.2 [facility] Urea nitrogen/Creatinine [Mass ratio] 17.6 mg/mg 10-20 [facility] Laboratory - Hematology and Cell countsOrdered By: Dr. Sewell on 03-20-2023 Erythrocyte distribution width (RBC) [Entitic vol] 49.6 fL 35.1-43.9 [facility] Erythrocyte distribution width (RBC) [Ratio] 13.6 % 11.6-14.6 [facility] Immature granulocytes/100 WBC (Bld) 0.100 % 0.0-0.9 [facility] Comment on above: IG% - Immature Granu locytes (promyelocytes, myelocytes and metamyelocytes) > 1% indicates that a LEFT SHIFT is Present. MCH (RBC) [Entitic mass] 32.3 pg 27.0-32.0 [facility] Nucleated RBC/100 WBC (Bld) [Ratio] 0 % 0-5 [facility] MCHC Auto (RBC) [Mass/Vol]Or dered By: Dr. Sewell on 09-15-2022 MCHC (RBC) [Mass/Vol] 32.6 g/dL 32-36 [facility] No Panel InformationOrdered By: Dr. Schuler on 09-15-2022 Estimated GFR (MDRD) Amer 40 mL/min >60 [facility] Comment on above: GFR Calc Estimated GFR (MDRD) Non-Af Amer 33 mL/min >60 [facility] Comment on above: Non- GFR Calc Thyroid Stimulating Hormone (TSH) 2.10 uIU/mL 0.358-3.74 [facility] Platelets bldOrdered By: Dr. Sewell on 09-15-2022 Platelets (Bld) [#/Vol] 184 10*3/uL 150-450 [facility] Serum or plasma albumin dex urement (mass/volume)Ordered By: Dr. Schuler on 09-15-2022 Albumin [Mass/Vol] 3.6 g/dL 3.2-5.0 [facility] Serum or plasma albumin/glob ulin mass ratioOrdered By: Dr. Schuler on 09-15-2022 Albumin/Globulin [Mass ratio] 1.0 {ratio} 0.9-2.4 [facility] Serum or plasma calcium dex urement (mass/volume)Ordered By: Dr. Schuler on 09-15-2022 Calcium [Mass/Vol] 8.9 mg/dL 8.5-10.1 [facility] Serum or plasma creatinine m easurement (mass/volume)Ordered By: Dr. Schuler on 09-15-2022 Creatinine [Mass/Vol] 1.59 mg/dL 0.55-1.02 [facility] Comment on above: The validity of the calculated GFR & GFRAA in patients over 70 years has not been determined. Clinical correlation is essential. Serum or plasma urea nitroge n measurement (mass/volume)Ordered By: Dr. Schuler on 09-15-2022 Urea nitrogen [Mass/Vol] 28 mg/dL 7-18 [facility] Thin prep Papanicolaou smear with manual screeningOrdered By: Dr. Schuler on 09-15-2022 Thin prep Papanicolaou smear with manual screening 29 U/L 15-37 [facility] Thin prep Papanicolaou smear with manual screening 7 5-15 [facility] Basophil percentageOrdered B y: Dr. Sewell on 07-22-2022 Basophil percentage 3.3 mg/dL 2.5-4.9 [facility] Chloride [Moles/Vol] 112 mmol/L 98-107 [facility] Glucose [Mass/Vol] 96 mg/dL 74-106 [facility] Potassium [Moles/Vol] 4.4 mmol/L 3.5-5.1 [facility] Sodium [Moles/Vol] 142 mmol/L 136-145 [facility] Laboratory - Chemistry and C hemistry - challengeOrdered By: Dr. Sewell on 07-22-2022 CO2 [Moles/Vol] 23.0 mmol/L 21.0-32.0 [facility] Urea nitrogen/Creatinine [Mass ratio] 16.5 mg/mg 10- [facility] No Panel InformationOrdered By: Dr. Sewell on 07-22-2022 Estimated GFR (MDRD) Amer 51 mL/min >60 [facility] Comment on above: GFR Calc Estimated GFR (MDRD) Non-Af Amer 42 mL/min >60 [facility] Comment on above: Non- GFR Calc Serum or plasma albumin dex urement (mass/volume)Ordered By: Dr. Sewell on 07-22-2022 Albumin [Mass/Vol] 3.8 g/dL 3.2-5.0 [facility] Serum or plasma calcium dex urement (mass/volume)Ordered By: Dr. Sewell on 07-22-2022 Calcium [Mass/Vol] 9.4 mg/dL 8.5-10.1 [facility] Serum or plasma creatinine m easurement (mass/volume)Ordered By: Dr. Sewell on 07-22-2022 Creatinine [Mass/Vol] 1.27 mg/dL 0.55-1.02 [facility] Comment on above: The validity of the calculated GFR & GFRAA in patients over 70 years has not been determined. Clinical correlation is essential. Serum or plasma urea nitroge n measurement (mass/volume)Ordered By: Dr. Sewell on 07-22-2022 Urea nitrogen [Mass/Vol] 21 mg/dL 7-18 [facility] Basophil percentageOrdered B y: Dr. Frey on 07-16-2022 Chloride [Moles/Vol] 110 mmol/L 98-107 [facility] Glucose [Mass/Vol] 107 mg/dL 74-106 [facility] Comment on above: Fasting Glucose resu lt from 100 to 125 mg/dL suggests IMPAIRED HOMEOSTASIS per A.D.A. criteria. Potassium [Moles/Vol] 3.3 mmol/L 3.5-5.1 [facility] Sodium [Moles/Vol] 143 mmol/L 136-145 [facility] Laboratory - Chemistry and C hemistry - challengeOrdered By: Dr. Frey on 07-16-2022 CO2 [Moles/Vol] 27.0 mmol/L 21.0-32.0 [facility] Urea nitrogen/Creatinine [Mass ratio] 19.1 mg/mg 10-20 [facility] No Panel InformationOrdered By: Dr. Frey on 07-16-2022 Estimated GFR (MDRD) Amer 42 mL/min >60 [facility] Comment on above: GFR Calc Estimated GFR (MDRD) Non-Af Amer 35 mL/min >60 [facility] Comment on above: Non- GFR Calc Serum or plasma calcium dex urement (mass/volume)Ordered By: Dr. Frey on 07-16-2022 Calcium [Mass/Vol] 9.0 mg/dL 8.5-10.1 [facility] Serum or plasma creatinine m easurement (mass/volume)Ordered By: Dr. Frey on 07-16-2022 Creatinine [Mass/Vol] 1.52 mg/dL 0.55-1.02 [facility] Comment on above: The validity of the calculated GFR & GFRAA in patients over 70 years has not been determined. Clinical correlation is essential. Serum or plasma urea nitroge n measurement (mass/volume)Ordered By: Dr. Frey on 07-16-2022 Urea nitrogen [Mass/Vol] 29 mg/dL 7-18 [facility] Thin prep Papanicolaou smear with manual screeningOrdered By: Dr. Frey on 07-16-2022 Thin prep Papanicolaou smear with manual screening 6 5-15 [facility] Basophil percentageOrdered B y: Dr. Frey on 07-09-2022 Chloride [Moles/Vol] 108 mmol/L 98-107 [facility] Glucose [Mass/Vol] 89 mg/dL 74-106 [facility] Potassium [Moles/Vol] 3.8 mmol/L 3.5-5.1 [facility] Sodium [Moles/Vol] 141 mmol/L 136-145 [facility] - Chemistry and C hemistry - challengeOrdered By: Dr. Frey on 07-09-2022 CO2 [Moles/Vol] 27.0 mmol/L 21.0-32.0 [facility] Urea nitrogen/Creatinine [Mass ratio] 19.8 mg/mg 10-20 [facility] No Panel InformationOrdered By: Dr. Frey on 07-09-2022 Estimated GFR (MDRD) Amer 50 mL/min >60 [facility] Comment on above: GFR Calc Estimated GFR (MDRD) Non-Af Amer 41 mL/min >60 [facility] Comment on above: Non- GFR Calc Serum or plasma calcium dex urement (mass/volume)Ordered By: Dr. Frey on 07-09-2022 Calcium [Mass/Vol] 9.0 mg/dL 8.5-10.1 [facility] Serum or plasma creatinine m easurement (mass/volume)Ordered By: Dr. Frey on 07-09-2022 Creatinine [Mass/Vol] 1.31 mg/dL 0.55-1.02 [facility] Comment on above: The validity of the calculated GFR & GFRAA in patients over 70 years has not been determined. Clinical correlation is essential. Serum or plasma urea nitroge n measurement (mass/volume)Ordered By: Dr. Frey on 07-09-2022 Urea nitrogen [Mass/Vol] 26 mg/dL 7-18 [facility] Thin prep Papanicolaou smear with manual screeningOrdered By: Dr. Frey on 07-09-2022 Thin prep Papanicolaou smear with manual screening 6 5-15 [facility] Absolute lymphocyte countOrd ered By: Dr. Rucker on 06-04-2022 Lymphocytes Auto (Unsp spec) [#/Vol] 1.87 10*3/uL 0.83-4.51 [facility] Basophil percentageOrdered B y: Dr. Rucker on 06-04-2022 Basophils/100 WBC (Bld) 0.6 % 0-1 [facility] Chloride [Moles/Vol] 107 mmol/L 98-107 [facility] Eosinophils/100 WBC (Bld) 1.8 % 0-5 [facility] Glucose [Mass/Vol] 134 mg/dL 74-106 [facility] Comment on above: Fasting Glucose resu lt greater than or equal to 126 mg/dL suggests DIABETES MELLITUS per A.D.A. criteria. Neutrophils (Bld) [#/Vol] 4.7 10*3/uL 2.0-7.7 [facility] Neutrophils/100 WBC (Bld) 65.1 % 47-70 [facility] Potassium [Moles/Vol] 3.6 mmol/L 3.5-5.1 [facility] Sodium [Moles/Vol] 139 mmol/L 136-145 [facility] WBC (Bld) [#/Vol] 7.2 10*3/uL 4.4-11.0 [facility] Blood erythrocytes count (nu mber/volume)Ordered By: Dr. Rucker on 06-04-2022 RBC (Bld) [#/Vol] 4.11 10*6/uL 4.2-5.4 [facility] Blood hemoglobin measurement (mass/volume)Ordered By: Dr. Rucker on 06-04-2022 Hemoglobin (Bld) [Mass/Vol] 12.4 g/dL 12.0-15.0 [facility] Blood lymphocytes/100 leukoc ytesOrdered By: Dr. Rucker on 06-04-2022 Lymphocytes/100 WBC (Bld) 25.9 % 19-41 [facility] Blood monocytes/100 leukocyt esOrdered By: Dr. Rucker on 06-04-2022 Monocytes/100 WBC (Bld) 6.2 % 0-10 [facility] Blood platelet mean volumeOr dered By: Dr. Rucker on 06-04-2022 Platelet mean volume (Bld) [Entitic vol] 10.7 fL 6.2-12.0 [facility] Determination of erythrocyte mean corpuscular volume (MCV)Ordered By: Dr. Rucker on 06-04-2022 MCV (RBC) [Entitic vol] 97.6 fL 81-99 [facility] Hematocrit Auto (Bld) [Volum e fraction]Ordered By: Dr. Rucker on 06-04-2022 Hematocrit (Bld) [Volume fraction] 40.1 % 37-47 [facility] Laboratory - Chemistry and C hemistry - challengeOrdered By: Dr. Rucker on 06-04-2022 CO2 [Moles/Vol] 27.0 mmol/L 21.0-32.0 [facility] Urea nitrogen/Creatinine [Mass ratio] 15.4 mg/mg 10-20 [facility] Laboratory - Hematology and Cell countsOrdered By: Dr. Rucker on 06-04-2022 Erythrocyte distribution width (RBC) [Entitic vol] 48.3 fL 35.1-43.9 [facility] Erythrocyte distribution width (RBC) [Ratio] 13.5 % 11.6-14.6 [facility] Immature granulocytes/100 WBC (Bld) 0.400 % 0.0-0.9 [facility] Comment on above: IG% - Immature Granu locytes (promyelocytes, myelocytes and metamyelocytes) > 1% indicates that a LEFT SHIFT is Present. MCH (RBC) [Entitic mass] 30.2 pg 27.0-32.0 [facility] Nucleated RBC/100 W[facility] (Bld) [Ratio] 0 % [facility] [Mass/Vol]Or dered By: Dr. Rucker on 06-04-2022 MCHC (RBC) [Mass/Vol] 30.9 g/dL 32-36 [facility] No Panel InformationOrdered By: Dr. Rucker on 06-04-2022 Estimated Creatinine Clearance Calc 26.45 ml/min [facility] Estimated GFR (MDRD) Amer 53 mL/min >60 [facility] Comment on above: GFR Calc Estimated GFR (MDRD) Non-Af Amer 44 mL/min >60 [facility] Comment on above: Non- GFR Calc Troponin I High Sensitivity 326 pg/mL 3.0-54.0 [facility] Comment on above: Critical Result(s) C alled at: 10:50:52 06/04/2022 by: [facility] Results read back by same. Please Note: New Test Units and Gender Specific Reference Ranges. For more information see Policy Stat Procedure [place] High Sensitivity Troponin (TNIH) and attachments. Platelets bldOrdered By: Dr. Rucker on 06-04-2022 Platelets (Bld) [#/Vol] 232 10*3/uL 150-450 [facility] Serum or plasma calcium dex urement (mass/volume)Ordered By: Dr. Rucker on 06-04-2022 Calcium [Mass/Vol] 9.1 mg/dL 8.5-10.1 [facility] Serum or plasma creatinine m easurement (mass/volume)Ordered By: Dr. Rucker on 06-04-2022 Creatinine [Mass/Vol] 1.23 mg/dL 0.55-1.02 [facility] Comment on above: The validity of the calculated GFR & GFRAA in patients over 70 years has not been determined. Clinical correlation is essential. Serum or plasma urea nitroge n measurement (mass/volume)Ordered By: Dr. Rucker on 06-04-2022 Urea nitrogen [Mass/Vol] 19 mg/dL 7-18 [facility] Thin prep Papanicolaou smear with manual screeningOrdered By: Dr. Rucker on 06-04-2022 Thin prep Papanicolaou smear with manual screening 5 5- [facility] Basophil percentageOrdered B y: Dr. Sewell on 05-13-2022 Basophil percentage 2.3 mg/dL 2.5-4.9 [facility] Chloride [Moles/Vol] 108 mmol/L 98-107 [facility] Glucose [Mass/Vol] 74 mg/dL 74-106 [facility] Potassium [Moles/Vol] 3.6 mmol/L 3.5-5.1 [facility] Sodium [Moles/Vol] 138 mmol/L 136-145 [facility] - Chemistry and C hemistry - challengeOrdered By: Dr. Sewell on 05-13-2022 CO2 [Moles/Vol] 21.0 mmol/L 21.0-32.0 [facility] Urea nitrogen/Creatinine [Mass ratio] 15.8 mg/mg 10-20 [facility] No Panel InformationOrdered By: Dr. Sewell on 05-13-2022 Estimated GFR (MDRD) Amer 46 mL/min >60 [facility] Comment on above: GFR Calc Estimated GFR (MDRD) Non-Af Amer 38 mL/min >60 [facility] Comment on above: Non- GFR Calc Serum or plasma albumin dex urement (mass/volume)Ordered By: Dr. Sewell on 05-13-2022 Albumin [Mass/Vol] 3.6 g/dL 3.2-5.0 [facility] Serum or plasma calcium dex urement (mass/volume)Ordered By: Dr. Sewell on 05-13-2022 Calcium [Mass/Vol] 9.2 mg/dL 8.5-10.1 [facility] Serum or plasma creatinine m easurement (mass/volume)Ordered By: Dr. Sewell on 05-13-2022 Creatinine [Mass/Vol] 1.39 mg/dL 0.55-1.02 [facility] Comment on above: The validity of the calculated GFR & GFRAA in patients over 70 years has not been determined. Clinical correlation is essential. Serum or plasma urea nitroge n measurement (mass/volume)Ordered By: Dr. Sewell on 05-13-2022 Urea nitrogen [Mass/Vol] 22 mg/dL 7- [facility] Absolute lymphocyte countOrd ered By: Dr. Nash on 05-05-2022 Lymphocytes Auto (Unsp spec) [#/Vol] 1.80 10*3/uL 0.83-4.51 [facility] Basophil percentageOrdered B y: Dr. Sewell on 05-05-2022 Basophil percentage 1.9 mg/dL 2.5-4.9 [facility] Basophil percentageOrdered B y: Dr. Nash on 05-05-2022 Basophils/100 WBC (Bld) 0.6 % 0-1 [facility] Chloride [Moles/Vol] 104 mmol/L 98-107 [facility] Eosinophils/100 WBC (Bld) 3.9 % 0-5 [facility] Glucose [Mass/Vol] 98 mg/dL 74-106 [facility] Neutrophils (Bld) [#/Vol] 3.7 10*3/uL 2.0-7.7 [facility] Neutrophils/100 WBC (Bld) 57.1 % 47-70 [facility] Potassium [Moles/Vol] 3.5 mmol/L 3.5-5.1 [facility] Sodium [Moles/Vol] 140 mmol/L 136-145 [facility] WBC (Bld) [#/Vol] 6.4 10*3/uL 4.4-11.0 [facility] Blood erythrocytes count (nu mber/volume)Ordered By: Dr. Nash on 05-05-2022 RBC (Bld) [#/Vol] 3.43 10*6/uL 4.2-5.4 [facility] Blood hemoglobin measurement (mass/volume)Ordered By: Dr. Nash on 05-05-2022 Hemoglobin (Bld) [Mass/Vol] 10.8 g/dL 12.0-15.0 [facility] Blood lymphocytes/100 leukoc ytesOrdered By: Dr. Nash on 05-05-2022 Lymphocytes/100 WBC (Bld) 28.0 % 19-41 [facility] Blood monocytes/100 leukocyt esOrdered By: Dr. Nash on 05-05-2022 Monocytes/100 WBC (Bld) 10.1 % 0-10 [facility] Blood platelet mean volumeOr dered By: Dr. Nash on 05-05-2022 Platelet mean volume (Bld) [Entitic vol] 10.5 fL 6.2-12.0 [facility] Culture, urineOrdered By: Dr Tony Sewell on 05-05-2022 Bacteria identified Cx Nom (U) Klebsiella pneumoniae sp pneum [facility] Bacteria identified Cx Nom (U) Positive [facility] Determination of erythrocyte mean corpuscular volume (MCV)Ordered By: Dr. Nash on 05-05-2022 MCV (RBC) [Entitic vol] 97.4 fL 81-99 [facility] Hematocrit Auto (Bld) [Volum e fraction]Ordered By: Dr. Nash on 05-05-2022 Hematocrit (Bld) [Volume fraction] 33.4 % 37-47 [facility] Laboratory - Chemistry and C hemistry - challengeOrdered By: Dr. Nash on 05-05-2022 CO2 [Moles/Vol] 31.0 mmol/L 21.0-32.0 [facility] Magnesium [Mass/Vol] 2.5 mg/dL 1.6-2.6 [facility] Urea nitrogen/Creatinine [Mass ratio] 25.8 mg/mg 10-20 [facility] Laboratory - Hematology and Cell countsOrdered By: Dr. Nash on 05-05-2022 Erythrocyte distribution width (RBC) [Entitic vol] 49.7 fL 35.1-43.9 [facility] Erythrocyte distribution width (RBC) [Ratio] 14.3 % 11.6-14.6 [facility] Immature granulocytes/100 WBC (Bld) 0.300 % 0.0-0.9 [facility] Comment on above: IG% - Immature Granu locytes (promyelocytes, myelocytes and metamyelocytes) > 1% indicates that a LEFT SHIFT is Present. MCH (RBC) [Entitic mass] 31.5 pg 27.0-32.0 [facility] Nucleated RBC/100 WBC (Bld) [Ratio] 0 % 0-5 [facility] MCHC Auto (RBC) [Mass/Vol]Or dered By: Dr. Nash on 05-05-2022 MCHC (RBC) [Mass/Vol] 32.3 g/dL 32-36 [facility] No Panel InformationOrdered By: Dr. Nash on 05-05-2022 Estimated Creatinine Clearance Calc 21.54 ml/min [facility] Estimated GFR (MDRD) Amer 42 mL/min >60 [facility] Comment on above: GFR Calc Estimated GFR (MDRD) Non-Af Amer 35 mL/min >60 [facility] Comment on above: Non- GFR Calc Platelets bldOrdered By: Dr. Nash on 05-05-2022 Platelets (Bld) [#/Vol] 199 10*3/uL 150-450 [facility] Serum or plasma albumin dex urement (mass/volume)Ordered By: Dr. Sewell on 05-05-2022 Albumin [Mass/Vol] 2.7 g/dL 3.2-5.0 [facility] Serum or plasma calcium dex urement (mass/volume)Ordered By: Dr. Nash on 05-05-2022 Calcium [Mass/Vol] 8.6 mg/dL 8.5-10.1 [facility] Serum or plasma creatinine m easurement (mass/volume)Ordered By: Dr. Nash on 05-05-2022 Creatinine [Mass/Vol] 1.51 mg/dL 0.55-1.02 [facility] Comment on above: The validity of the calculated GFR & GFRAA in patients over 70 years has not been determined. Clinical correlation is essential. Serum or plasma urea nitroge n measurement (mass/volume)Ordered By: Dr. Nash on 05-05-2022 Urea nitrogen [Mass/Vol] 39 mg/dL 7-18 [facility] Thin prep Papanicolaou smear with manual screeningOrdered By: Dr. Nash on 05-05-2022 Thin prep Papanicolaou smear with manual screening 5 5-15 [facility] Basophil percentageOrdered B y: Dr. Sewell on 05-04-2022 Bilirubin [Mass/Vol] 0.90 mg/dL 0.20-1.00 [facility] Comment on above: For patients on eltr ombopag therapy, use of Dimension [place] TBIL is not recommended. Protein [Mass/Vol] 6.1 g/dL 6.4-8.2 [facility] - Chemistry and C hemistry - challengeOrdered By: Dr. Sewell on 05-04-2022 ALP [Catalytic activity/Vol] 53 U/L 45-117 [facility] ALT [Catalytic activity/Vol] 174 U/L 13-56 [facility] Globulin (S) [Mass/Vol] 3.3 g/dL 2.2-4.2 [facility] Serum or plasma albumin/glob ulin mass ratioOrdered By: Dr. Sewell on 05-04-2022 Albumin/Globulin [Mass ratio] 0.8 {ratio} 0.9-2.4 [facility] Thin prep Papanicolaou smear with manual screeningOrdered By: Dr. Sewell on 05-04-2022 Thin prep Papanicolaou smear with manual screening 67 U/L 15-37 [facility] Basophil percentageOrdered B y: Dr. Sewell on 05-03-2022 Basophil percentage 0-5 SEEN /hpf 0-5 [facility] Bilirubin Test strip Ql (U)O rdered By: Dr. Sewell on 05-03-2022 Bilirubin Ql (U) Negative Negative [facility] Ketones Test strip Ql (U)Ord ered By: Dr. Sewell on 05-03-2022 Ketones Ql (U) Negative Negative [facility] Laboratory - Chemistry and C hemistry - challengeOrdered By: Dr. Sewell on 05-03-2022 Sodium (U) [Moles/Vol] 118 mmol/L Not Establ. [facility] Mucus LM Ql (Urine sed)Order ed By: Dr. Sewell on 05-03-2022 Mucus Ql (Urine sed) 0 SEEN /hpf [facility] Nitrite Test strip Ql (U)Ord ered By: Dr. Sewell on 05-03-2022 Nitrite Ql (U) Positive Negative [facility] Protein Test strip Ql (U)Ord ered By: Dr. Sewell on 05-03-2022 Protein Ql (U) Negative Negative [facility] Squamous epithelial cells de tection in urine sediment by light microscopyOrdered By: Dr. Sewell on 05-03-2022 Epithelial cells.squamous LM Ql (Urine sed) 0-5 SEEN /hpf 5-10 [facility] Urine blood detectionOrdered By: Dr. Sewell on 05-03-2022 RBC Ql (U) 250 /ul Negative [facility] RBC Ql (U) 0-5 SEEN /hpf 0-5 [facility] Urine clarityOrdered By: Dr. Sewell on 05-03-2022 Clarity (U) Clear Clear [facility] Urine color determinationOrd ered By: Dr. Sewell on 05-03-2022 Color (U) Yellow Yellow [facility] Urine creatinine measurement (mass/volume)Ordered By: Dr. Sewell on 05-03-2022 Creatinine (U) [Mass/Vol] 26.10 mg/dL NO RANGE EST. [facility] Urine glucose detectionOrder ed By: Dr. Sewell on 05-03-2022 Glucose Ql (U) Normal mg/dl Normal [facility] Urine leukocyte esterase det ection by dipstickOrdered By: Dr. Sewell on 05-03-2022 Leukocyte esterase Test strip Ql (U) 500 /ul Negative [facility] Urine pHOrdered By: Dr. Sewell on 05-03-2022 pH (U) 6.0 [pH] 5.0 - 8.0 [facility] Urine protein measurement (m ass/volume)Ordered By: Dr. Sewell on 05-03-2022 Protein (U) [Mass/Vol] 14.5 mg/dL 0.0-11.8 [facility] Urine protein/creatinine mas s ratioOrdered By: Dr. Sewell on 05-03-2022 Protein/Creatinine (U) [Mass ratio] 556 mg/g CRE 0-200 [facility] Urine sediment bacteria coun t by microscopy (number/high power field)Ordered By: Dr. Sewell on 05-03-2022 Bacteria LM.HPF (Urine sed) [#/Area] 3 /[HPF] None Seen [facility] Urine specific gravity measu rementOrdered By: Dr. Sewell on 05-03-2022 Specific gravity (U) [Rel density] 1.010 1.002-1.030 [facility] Urobilinogen Auto test strip Ql (U)Ordered By: Dr. Sewell on 05-03-2022 Urobilinogen Ql (U) Normal mg/dl Normal [facility] Basophil percentageOrdered B y: Dr. Tucker on 05-02-2022 Lactate [Moles/Vol] 1.4 mmol/L 0.4-2.0 [facility] No Panel InformationOrdered By: Dr. Sewell on 05-02-2022 Troponin I High Sensitivity 563 pg/mL 3.0-54.0 [facility] Comment on above: Critical Result(s) C alled at: 01:46:23 05/02/2022 by: FEDE MIRELES to Roslyn Arechiga RN PCU. Results read back by same. Please Note: New Test Units and Gender Specific Reference Ranges. For more information see Policy Stat Procedure [place] High Sensitivity Troponin (TNIH) and attachments. Absolute lymphocyte countOrd ered By: Ning Spencer on 05-01-2022 Lymphocytes Auto (Unsp spec) [#/Vol] 1.87 10*3/uL 0.83-4.51 [facility] Basophil percentageon 2021 Lactate [Moles/Vol] 3.9 mmol/L 0.4-2.0 [facility] Work Phone: Comment on above: Critical Result(s) C alled at: 20:37:06 05/01/2022 by: JAKE MCKEON. TO MARKO HAUSER RN ED Results read back by same. Basophil percentageOrdered B y: Ning Spencer on 05-01-2022 Basophils/100 WBC (Bld) 0.7 % 0-1 [facility] Chloride [Moles/Vol] 108 mmol/L 98-107 [facility] Eosinophils/100 WBC (Bld) 1.4 % 0-5 [facility] Glucose [Mass/Vol] 108 mg/dL 74-106 [facility] Comment on above: Fasting Glucose resu lt from 100 to 125 mg/dL suggests IMPAIRED HOMEOSTASIS per A.D.A. criteria. Neutrophils (Bld) [#/Vol] 5.1 10*3/uL 2.0-7.7 [facility] Neutrophils/100 WBC (Bld) 66.5 % 47-70 [facility] Potassium [Moles/Vol] 3.9 mmol/L 3.5-5.1 [facility] Sodium [Moles/Vol] 140 mmol/L 136-145 [facility] WBC (Bld) [#/Vol] 7.6 10*3/uL 4.4-11.0 [facility] Blood erythrocytes count (nu mber/volume)Ordered By: Ning Spencer on 05-01-2022 RBC (Bld) [#/Vol] 4.05 10*6/uL 4.2-5.4 [facility] Blood hemoglobin measurement (mass/volume)Ordered By: Ning Spencer on 05-01-2022 Hemoglobin (Bld) [Mass/Vol] 12.6 g/dL 12.0-15.0 [facility] Blood lymphocytes/100 leukoc ytesOrdered By: Ning Spencer on 05-01-2022 Lymphocytes/100 WBC (Bld) 24.5 % 19-41 [facility] Blood monocytes/100 leukocyt esOrdered By: Ning Spencer on 05-01-2022 Monocytes/100 WBC (Bld) 6.6 % 0-10 [facility] Blood platelet mean volumeOr dered By: Ning Spencer on 05-01-2022 Platelet mean volume (Bld) [Entitic vol] 10.8 fL 6.2-12.0 [facility] Determination of erythrocyte mean corpuscular volume (MCV)Ordered By: Ning Spencer on 05-01-2022 MCV (RBC) [Entitic vol] 100.0 fL 81-99 [facility] Hematocrit Auto (Bld) [Volum e fraction]Ordered By: Ning Spencer on 05-01-2022 Hematocrit (Bld) [Volume fraction] 40.5 % 37-47 [facility] Laboratory - Chemistry and C hemistry - challengeOrdered By: Ning Spencer on 05-01-2022 CO2 [Moles/Vol] 27.0 mmol/L 21.0-32.0 [facility] Free T4 [Mass/Vol] 1.49 ng/dL 0.76-1.46 [facility] Magnesium [Mass/Vol] 2.0 mg/dL 1.6-2.6 [facility] Natriuretic peptide B (Bld) [Mass/Vol] 1194.3 pg/mL 0-100 [facility] Urea nitrogen/Creatinine [Mass ratio] 20.1 mg/mg 10-20 [facility] Laboratory - Hematology and Cell countsOrdered By: Ning Spencer on 05-01-2022 Erythrocyte distribution width (RBC) [Entitic vol] 49.6 fL 35.1-43.9 [facility] Erythrocyte distribution width (RBC) [Ratio] 13.8 % 11.6-14.6 [facility] Immature granulocytes/100 WBC (Bld) 0.300 % 0.0-0.9 [facility] Comment on above: IG% - Immature Granu locytes (promyelocytes, myelocytes and metamyelocytes) > 1% indicates that a LEFT SHIFT is Present. MCH (RBC) [Entitic mass] 31.1 pg 27.0-32.0 [facility] Nucleated RBC/100 WBC (Bld) [Ratio] 0 % 0-5 [facility] MCHC Auto (RBC) [Mass/Vol]Or dered By: Ning Spencer on 05-01-2022 MCHC (RBC) [Mass/Vol] 31.1 g/dL 32-36 [facility] No Panel Informationon 05-01 Troponin I High Sensitivity 172 pg/mL 3.0-54.0 [facility] Work Phone: Comment on above: Critical Result(s) C alled at: 20:37:45 05/01/2022 by: JAKE MCKEON TO MARKO HAUSER RN ED. Results read back by same. Please Note: New Test Units and Gender Specific Reference Ranges. For more information see Policy Stat Procedure [place] High Sensitivity Troponin (TNIH) and attachments. No Panel InformationOrdered By: Ning Spencer on 05-01-2022 Estimated GFR (MDRD) Amer 29 mL/min >60 [facility] Comment on above: GFR Calc Estimated GFR (MDRD) Non-Af Amer 24 mL/min >60 [facility] Comment on above: Non- GFR Calc Free Triiodothyronine (T3) pg/dL 2.2 pg/mL 2.18-3.98 [facility] Thyroid Stimulating Hormone (TSH) 2.16 uIU/mL 0.358-3.74 [facility] Platelets bldOrdered By: Rob Spencer on 05-01-2022 Platelets (Bld) [#/Vol] 192 10*3/uL 150-450 [facility] Serum or plasma calcium dex urement (mass/volume)Ordered By: Ning Spencer on 05-01-2022 Calcium [Mass/Vol] 9.2 mg/dL 8.5-10.1 [facility] Serum or plasma creatinine m easurement (mass/volume)Ordered By: Ning Spencer on 05-01-2022 Creatinine [Mass/Vol] 2.09 mg/dL 0.55-1.02 [facility] Comment on above: The validity of the calculated GFR & GFRAA in patients over 70 years has not been determined. Clinical correlation is essential. Serum or plasma urea nitroge n measurement (mass/volume)Ordered By: Ning Spencer on 05-01-2022 Urea nitrogen [Mass/Vol] 42 mg/dL 7-18 [facility] Thin prep Papanicolaou smear with manual screeningOrdered By: Ning Spencer on 05-01-2022 Thin prep Papanicolaou smear with manual screening 5 5-15 [facility] Absolute lymphocyte countOrd ered By: Dr. Tam on 04-24-2022 Lymphocytes Auto (Unsp spec) [#/Vol] 2.24 10*3/uL 0.83-4.51 [facility] Basophil percentageOrdered B y: Dr. Tam on 04-24-2022 Basophils/100 WBC (Bld) 0.6 % 0-1 [facility] Chloride [Moles/Vol] 106 mmol/L 98-107 [facility] Eosinophils/100 WBC (Bld) 0.3 % 0-5 [facility] Glucose [Mass/Vol] 118 mg/dL 74-106 [facility] Comment on above: Fasting Glucose resu lt from 100 to 125 mg/dL suggests IMPAIRED HOMEOSTASIS per A.D.A. criteria. Neutrophils (Bld) [#/Vol] 9.5 10*3/uL 2.0-7.7 [facility] Neutrophils/100 WBC (Bld) 74.5 % 47-70 [facility] Potassium [Moles/Vol] 3.7 mmol/L 3.5-5.1 [facility] Sodium [Moles/Vol] 140 mmol/L 136-145 [facility] WBC (Bld) [#/Vol] 12.7 10*3/uL 4.4-11.0 [facility] Blood erythrocytes count (nu mber/volume)Ordered By: Dr. Tam on 04-24-2022 RBC (Bld) [#/Vol] 4.44 10*6/uL 4.2-5.4 [facility] Blood hemoglobin measurement (mass/volume)Ordered By: Dr. Tam on 04-24-2022 Hemoglobin (Bld) [Mass/Vol] 13.7 g/dL 12.0-15.0 [facility] Blood lymphocytes/100 leukoc ytesOrdered By: Dr. Tam on 04-24-2022 Lymphocytes/100 WBC (Bld) 17.6 % 19-41 [facility] Blood monocytes/100 leukocyt esOrdered By: Dr. Tam on 04-24-2022 Monocytes/100 WBC (Bld) 6.6 % 0-10 [facility] Blood platelet mean volumeOr dered By: Dr. Tam on 04-24-2022 Platelet mean volume (Bld) [Entitic vol] 10.5 fL 6.2-12.0 [facility] Determination of erythrocyte mean corpuscular volume (MCV)Ordered By: Dr. Tam on 04-24-2022 MCV (RBC) [Entitic vol] 95.7 fL 81-99 [facility] Hematocrit Auto (Bld) [Volum e fraction]Ordered By: Dr. Tam on 04-24-2022 Hematocrit (Bld) [Volume fraction] 42.5 % 37-47 [facility] Laboratory - Chemistry and C hemistry - challengeOrdered By: Dr. Tam on 04-24-2022 CO2 [Moles/Vol] 25.0 mmol/L 21.0-32.0 [facility] Urea nitrogen/Creatinine [Mass ratio] 16.8 mg/mg 10-20 [facility] Laboratory - Hematology and Cell countsOrdered By: Dr. Tam on 04-24-2022 Erythrocyte distribution width (RBC) [Entitic vol] 47.8 fL 35.1-43.9 [facility] Erythrocyte distribution width (RBC) [Ratio] 13.5 % 11.6-14.6 [facility] Immature granulocytes/100 WBC (Bld) 0.400 % 0.0-0.9 [facility] Comment on above: IG% - Immature Granu locytes (promyelocytes, myelocytes and metamyelocytes) > 1% indicates that a LEFT SHIFT is Present. MCH (RBC) [Entitic mass] 30.9 pg 27.0-32.0 [facility] Nucleated RBC/100 WBC (Bld) [Ratio] 0 % 0-5 [facility] MCHC Auto (RBC) [Mass/Vol]Or dered By: Dr. Tam on 04-24-2022 MCHC (RBC) [Mass/Vol] 32.2 g/dL 32-36 [facility] No Panel InformationOrdered By: Dr. Tam on 04-24-2022 Estimated Creatinine Clearance Calc 17.12 ml/min [facility] Estimated GFR (MDRD) Amer 32 mL/min >60 [facility] Comment on above: GFR Calc Estimated GFR (MDRD) Non-Af Amer 27 mL/min >60 [facility] Comment on above: Non- GFR Calc Troponin I High Sensitivity 172 pg/mL 3.0-54.0 [facility] Comment on above: Critical Result(s) C alled at: 16:16:10 04/24/2022 by: DEIDRA LONG to MALACHI ROUSE. Results read back by same. Please Note: New Test Units and Gender Specific Reference Ranges. For more information see Policy Stat Procedure [place] High Sensitivity Troponin (TNIH) and attachments. Platelets bldOrdered By: Dr. Tam on 04-24-2022 Platelets (Bld) [#/Vol] 211 10*3/uL 150-450 [facility] Serum or plasma calcium dex urement (mass/volume)Ordered By: Dr. Tam on 04-24-2022 Calcium [Mass/Vol] 9.5 mg/dL 8.5-10.1 [facility] Serum or plasma creatinine m easurement (mass/volume)Ordered By: Dr. Tam on 04-24-2022 Creatinine [Mass/Vol] 1.90 mg/dL 0.55-1.02 [facility] Comment on above: The validity of the calculated GFR & GFRAA in patients over 70 years has not been determined. Clinical correlation is essential. Serum or plasma urea nitroge n measurement (mass/volume)Ordered By: Dr. Tam on 04-24-2022 Urea nitrogen [Mass/Vol] 32 mg/dL 7-18 [facility] Thin prep Papanicolaou smear with manual screeningOrdered By: Dr. Tam on 04-24-2022 Thin prep Papanicolaou smear with manual screening 9 5-15 [facility] XR Chest PA and Lateralon IMPRESSION: Increasing fluid and atelectasis at the right base. Superimposed consolidation cannot be excluded Manager Validation: CANDY Transcribe Date/Time: Apr 11 2022 10:40A Dictated by : RITO MORENO MD This examination was interpreted and the report reviewed and electronically signed by: RITO MORENO MD on Apr 11 2022 10:41AM [facility] DIVISION OF RADIOLOGY * * *Final Report* * * DATE OF EXAM: Apr 10 2022 11:39AM WOX 5291 - XR CHEST 2V FRONTAL/LAT / PROCEDURE REASON: Acute cough * * * * Physician Interpretation * * * * EXAMINATION: CHEST RADIOGRAPH (2 VIEW FRONTAL & LATERAL) CLINICAL HISTORY: Acute cough MQ: XC2_6 EXAM DATE/TIME: 04/10/2022 11:39 AM COMPARISON: 04/02/2022 RESULT: Lines, tubes, and devices: None. Lungs and pleura: Fluid and atelectasis at the right base has increased. Minimal atelectasis at the left base is stable. No pneumothorax Cardiomediastinal silhouette: Stable cardiomediastinal silhouette. Bones and soft tissues: Unremarkable. DIVISION OF RADIOLOGY Provider, [facility] - 04/11/2022 * * *Final Report* * * DATE OF EXAM: Apr 10 2022 11:39AM WOX 5291 - XR CHEST 2V FRONTAL/LAT / PROCEDURE REASON: Acute cough * * * * Physician Interpretation * * * * EXAMINATION: CHEST RADIOGRAPH (2 VIEW FRONTAL & LATERAL) CLINICAL HISTORY: Acute cough MQ: XC2_6 EXAM DATE/TIME: 04/10/2022 11:39 AM COMPARISON: 04/02/2022 RESULT: Lines, tubes, and devices: None. Lungs and pleura: Fluid and atelectasis at the right base has increased. Minimal atelectasis at the left base is stable. No pneumothorax Cardiomediastinal silhouette: Stable cardiomediastinal silhouette. Bones and soft tissues: Unremarkable. IMPRESSION IMPRESSION: Increasing fluid and atelectasis at the right base. Superimposed consolidation cannot be excluded Manager Validation: CANDY Transcribe Date/Time: Apr 11 2022 10:40A Dictated by : RITO MORENO MD This examination was interpreted and the report reviewed and electronically signed by: RITO MORENO MD on Apr 11 2022 10:41AM EST [facility] XR Chest PA and LateralOrder ed By: [facility] Provider on 04-11-2022 [facility] XR Chest PA and Lateralon Radiology Study observation (narrative) Lexy cardozo [facility] Culture, urineOrdered By: Dr Tony Trejo on 04-06-2022 Bacteria identified Cx Nom (U) Culture exhibits no growth. [facility] Absolute lymphocyte countOrd ered By: Dr. Trejo on 04-04-2022 Lymphocytes Auto (Unsp spec) [#/Vol] 1.70 10*3/uL 0.83-4.51 [facility] Basophil percentageOrdered B y: Dr. Trejo on 04-04-2022 Basophil percentage 10-25 SEEN /hpf 0-5 [facility] Basophils/100 WBC (Bld) 0.7 % 0-1 [facility] Bilirubin [Mass/Vol] 0.70 mg/dL 0.20-1.00 [facility] Comment on above: For patients on eltr ombopag therapy, use of Dimension [place] TBIL is not recommended. Chloride [Moles/Vol] 110 mmol/L 98-107 [facility] Eosinophils/100 WBC (Bld) 1.7 % 0-5 [facility] Glucose [Mass/Vol] 141 mg/dL 74-106 [facility] Comment on above: Fasting Glucose resu lt greater than or equal to 126 mg/dL suggests DIABETES MELLITUS per A.D.A. criteria. Neutrophils (Bld) [#/Vol] 4.6 10*3/uL 2.0-7.7 [facility] Neutrophils/100 WBC (Bld) 66.7 % 47-70 [facility] Potassium [Moles/Vol] 4.9 mmol/L 3.5-5.1 [facility] Comment on above: Moderate Hemolysis, Result may be falsely increased. Protein [Mass/Vol] 7.5 g/dL 6.4-8.2 [facility] Sodium [Moles/Vol] 138 mmol/L 136-145 [facility] WBC (Bld) [#/Vol] 7.0 10*3/uL 4.4-11.0 [facility] Bilirubin Test strip Ql (U)O rdered By: Dr. Trejo on 04-04-2022 Bilirubin Ql (U) Negative Negative [facility] Blood erythrocytes count (nu mber/volume)Ordered By: Dr. Trejo on 04-04-2022 RBC (Bld) [#/Vol] 4.06 10*6/uL 4.2-5.4 [facility] Blood hemoglobin measurement (mass/volume)Ordered By: Dr. Trejo on 04-04-2022 Hemoglobin (Bld) [Mass/Vol] 12.6 g/dL 12.0-15.0 [facility] Blood lymphocytes/100 leukoc ytesOrdered By: Dr. Trejo on 04-04-2022 Lymphocytes/100 WBC (Bld) 24.4 % 19-41 [facility] Blood monocytes/100 leukocyt esOrdered By: Dr. Trejo on 04-04-2022 Monocytes/100 WBC (Bld) 6.2 % 0-10 [facility] Blood platelet mean volumeOr dered By: Dr. Trejo on 04-04-2022 Platelet mean volume (Bld) [Entitic vol] 10.6 fL 6.2-12.0 [facility] Determination of erythrocyte mean corpuscular volume (MCV)Ordered By: Dr. Trejo on 04-04-2022 MCV (RBC) [Entitic vol] 101.2 fL 81-99 [facility] Hematocrit Auto (Bld) [Volum e fraction]Ordered By: Dr. Trejo on 04-04-2022 Hematocrit (Bld) [Volume fraction] 41.1 % 37-47 [facility] Ketones Test strip Ql (U)Ord ered By: Dr. Trejo on 04-04-2022 Ketones Ql (U) 5 mg/dl Negative [facility] Laboratory - Chemistry and C hemistry - challengeOrdered By: Dr. Trejo on 04-04-2022 ALP [Catalytic activity/Vol] 60 U/L 45-117 [facility] ALT [Catalytic activity/Vol] 37 U/L 13-56 [facility] CO2 [Moles/Vol] 21.0 mmol/L 21.0-32.0 [facility] Globulin (S) [Mass/Vol] 4.1 g/dL 2.2-4.2 [facility] Natriuretic peptide B (Bld) [Mass/Vol] 481.3 pg/mL 0-100 [facility] Urea nitrogen/Creatinine [Mass ratio] 18.3 mg/mg 10-20 [facility] Laboratory - Hematology and Cell countsOrdered By: Dr. Trejo on 04-04-2022 Erythrocyte distribution width (RBC) [Entitic vol] 51.5 fL 35.1-43.9 [facility] Erythrocyte distribution width (RBC) [Ratio] 13.9 % 11.6-14.6 [facility] Immature granulocytes/100 WBC (Bld) 0.300 % 0.0-0.9 [facility] Comment on above: IG% - Immature Granu locytes (promyelocytes, myelocytes and metamyelocytes) > 1% indicates that a LEFT SHIFT is Present. MCH (RBC) [Entitic mass] 31.0 pg 27.0-32.0 [facility] Nucleated RBC/100 WBC (Bld) [Ratio] 0 % 0-5 [facility] MCHC Auto (RBC) [Mass/Vol]Or dered By: Dr. Trejo on 04-04-2022 MCHC (RBC) [Mass/Vol] 30.7 g/dL 32-36 [facility] Mucus LM Ql (Urine sed)Order ed By: Dr. Trejo on 04-04-2022 Mucus Ql (Urine sed) 0 SEEN /hpf [facility] Nitrite Test strip Ql (U)Ord ered By: Dr. Trejo on 04-04-2022 Nitrite Ql (U) Negative Negative [facility] No Panel InformationOrdered By: Dr. Trejo on 04-04-2022 Estimated Creatinine Clearance Calc 18.07 ml/min [facility] Estimated GFR (MDRD) Amer 34 mL/min >60 [facility] Comment on above: GFR Calc Estimated GFR (MDRD) Non-Af Amer 28 mL/min >60 [facility] Comment on above: Non- GFR Calc Platelets bldOrdered By: Dr. Trejo on 04-04-2022 Platelets (Bld) [#/Vol] 157 10*3/uL 150-450 [facility] Protein Test strip Ql (U)Ord ered By: Dr. Trejo on 04-04-2022 Protein Ql (U) 100 mg/dl Negative [facility] Serum or plasma albumin dex urement (mass/volume)Ordered By: Dr. Trejo on 04-04-2022 Albumin [Mass/Vol] 3.4 g/dL 3.2-5.0 [facility] Serum or plasma albumin/glob ulin mass ratioOrdered By: Dr. Trejo on 04-04-2022 Albumin/Globulin [Mass ratio] 0.8 {ratio} 0.9-2.4 [facility] Serum or plasma calcium dex urement (mass/volume)Ordered By: Dr. Trejo on 04-04-2022 Calcium [Mass/Vol] 9.1 mg/dL 8.5-10.1 [facility] Serum or plasma creatinine m easurement (mass/volume)Ordered By: Dr. Trejo on 04-04-2022 Creatinine [Mass/Vol] 1.80 mg/dL 0.55-1.02 [facility] Comment on above: The validity of the calculated GFR & GFRAA in patients over 70 years has not been determined. Clinical correlation is essential. Serum or plasma urea nitroge n measurement (mass/volume)Ordered By: Dr. Trejo on 04-04-2022 Urea nitrogen [Mass/Vol] 33 mg/dL 7-18 [facility] Squamous epithelial cells de tection in urine sediment by light microscopyOrdered By: Dr. Trejo on 04-04-2022 Epithelial cells.squamous LM Ql (Urine sed) 0-5 SEEN /hpf 5-10 [facility] Thin prep Papanicolaou smear with manual screeningOrdered By: Dr. Trejo on 04-04-2022 Thin prep Papanicolaou smear with manual screening 36 U/L 15-37 [facility] Comment on above: Moderate Hemolysis, Result may be falsely increased. Thin prep Papanicolaou smear with manual screening 7 5-15 [facility] Urine blood detectionOrdered By: Dr. Trejo on 04-04-2022 RBC Ql (U) 150 /ul Negative [facility] RBC Ql (U) 5-10 SEEN /hpf 0-5 [facility] Urine clarityOrdered By: Dr. Trejo on 04-04-2022 Clarity (U) Sl. Cloudy Clear [facility] Urine color determinationOrd ered By: Dr. Trejo on 04-04-2022 Color (U) Yellow Yellow [facility] Urine glucose detectionOrder ed By: Dr. Trejo on 04-04-2022 Glucose Ql (U) Normal mg/dl Normal [facility] Urine leukocyte esterase det ection by dipstickOrdered By: Dr. Trejo on 04-04-2022 Leukocyte esterase Test strip Ql (U) 100 /ul Negative [facility] Urine pHOrdered By: Dr. Christina caballero on 04-04-2022 pH (U) 6.0 [pH] 5.0 - 8.0 [facility] Urine sediment bacteria coun t by microscopy (number/high power field)Ordered By: Dr. Trejo on 04-04-2022 Bacteria LM.HPF (Urine sed) [#/Area] 0 /[HPF] None Seen [facility] Urine specific gravity measu rementOrdered By: Dr. Trejo on 04-04-2022 Specific gravity (U) [Rel density] 1.020 1.002-1.030 [facility] Urobilinogen Auto test strip Ql (U)Ordered By: Dr. Trejo on 04-04-2022 Urobilinogen Ql (U) Normal mg/dl Normal [facility] XR Chest PA and Lateralon IMPRESSION: Fluid and atelectasis is again seen at both lung bases. Stable on the left, slightly increased on the right. Superimposed consolidation at the right lung base cannot be excluded Manager Validation: CANDY Transcribe Date/Time: Apr 03 2022 9:08A Dictated by : RITO MORENO MD This examination was interpreted and the report reviewed and electronically signed by: RITO MORENO MD on Apr 03 2022 9:09AM [facility] DIVISION OF RADIOLOGY * * *Final Report* * * DATE OF EXAM: Apr 02 2022 4:50PM WOX 5291 - XR CHEST 2V FRONTAL/LAT / PROCEDURE REASON: multiple diagnoses * * * * Physician Interpretation * * * * EXAMINATION: CHEST RADIOGRAPH (2 VIEW FRONTAL & LATERAL) CLINICAL HISTORY: Acute cough Shortness of breath MQ: XC2_6 EXAM DATE/TIME: 04/02/2022 4:50 PM COMPARISON: 03/20/2022 RESULT: Lines, tubes, and devices: None. Lungs and pleura: Fluid and atelectasis is seen at both lung bases. Stable on the left and slightly increased on the right. Superimposed consolidation at the right lung base cannot be excluded. No pneumothorax Cardiomediastinal silhouette: Stable cardiomediastinal silhouette. Bones and soft tissues: Unremarkable. DIVISION OF RADIOLOGY Provider, [facility] [place] - 04/03/2022 * * *Final Report* * * DATE OF EXAM: Apr 02 2022 4:50PM WOX 5291 - XR CHEST 2V FRONTAL/LAT / PROCEDURE REASON: multiple diagnoses * * * * Physician Interpretation * * * * EXAMINATION: CHEST RADIOGRAPH (2 VIEW FRONTAL & LATERAL) CLINICAL HISTORY: Acute cough Shortness of breath MQ: XC2_6 EXAM DATE/TIME: 04/02/2022 4:50 PM COMPARISON: 03/20/2022 RESULT: Lines, tubes, and devices: None. Lungs and pleura: Fluid and atelectasis is seen at both lung bases. Stable on the left and slightly increased on the right. Superimposed consolidation at the right lung base cannot be excluded. No pneumothorax Cardiomediastinal silhouette: Stable cardiomediastinal silhouette. Bones and soft tissues: Unremarkable. IMPRESSION IMPRESSION: Fluid and atelectasis is again seen at both lung bases. Stable on the left, slightly increased on the right. Superimposed consolidation at the right lung base cannot be excluded Manager Validation: CANDY Transcribe Date/Time: Apr 03 2022 9:08A Dictated by : RITO MORENO MD This examination was interpreted and the report reviewed and electronically signed by: RITO MORENO MD on Apr 03 2022 9:09AM EST [facility] XR Chest PA and LateralOrder ed By: [facility] Provider on 04-03-2022 [facility] XR Chest PA and Lateralon Radiology Study observation (narrative) Lexy cardozo [facility] Basophil percentageOrdered B y: Tex Sarah on 03-31-2022 Chloride [Moles/Vol] 111 mmol/L 98-107 [facility] Glucose [Mass/Vol] 108 mg/dL 74-106 [facility] Comment on above: Fasting Glucose resu lt from 100 to 125 mg/dL suggests IMPAIRED HOMEOSTASIS per A.D.A. criteria. Potassium [Moles/Vol] 3.2 mmol/L 3.5-5.1 [facility] Sodium [Moles/Vol] 142 mmol/L 136-145 [facility] C. DIFFICILE PCRon 2 C. difficile toxin genes GUERA+probe Ql (Stl) Negative Negative for C. difficile toxin by PCR [facility] Laboratory - Chemistry and C hemistry - challengeOrdered By: Tex Squires on 03-31-2022 CO2 [Moles/Vol] 23.0 mmol/L 21.0-32.0 [facility] Urea nitrogen/Creatinine [Mass ratio] 21.0 mg/mg 10- [facility] No Panel InformationOrdered By: Tex Squires on 03-31-2022 Estimated GFR (MDRD) Amer 35 mL/min >60 [facility] Comment on above: GFR Calc Estimated GFR (MDRD) Non-Af Amer 29 mL/min >60 [facility] Comment on above: Non- GFR Calc Serum or plasma calcium dex urement (mass/volume)Ordered By: Tex Squires on 03-31-2022 Calcium [Mass/Vol] 9.0 mg/dL 8.5-10.1 [facility] Serum or plasma creatinine m easurement (mass/volume)Ordered By: Tex Squires on 03-31-2022 Creatinine [Mass/Vol] 1.76 mg/dL 0.55-1.02 [facility] Comment on above: The validity of the calculated GFR & GFRAA in patients over 70 years has not been determined. Clinical correlation is essential. Serum or plasma urea nitroge n measurement (mass/volume)Ordered By: Tex Squires on 03-31-2022 Urea nitrogen [Mass/Vol] 37 mg/dL 7-18 [facility] Thin prep Papanicolaou smear with manual screeningOrdered By: Tex Squires on 03-31-2022 Thin prep Papanicolaou smear with manual screening 8 5-15 [facility] Basophil percentageOrdered B y: Tex Squires on 03-25-2022 Chloride [Moles/Vol] 112 mmol/L 98-107 [facility] Glucose [Mass/Vol] 102 mg/dL 74-106 [facility] Comment on above: Fasting Glucose resu lt from 100 to 125 mg/dL suggests IMPAIRED HOMEOSTASIS per A.D.A. criteria. Potassium [Moles/Vol] 3.1 mmol/L 3.5-5.1 [facility] Sodium [Moles/Vol] 141 mmol/L 136-145 [facility] Laboratory - Chemistry and C hemistry - challengeOrdered By: Tex Squires on 03-25-2022 CO2 [Moles/Vol] 21.0 mmol/L 21.0-32.0 [facility] Natriuretic peptide B (Bld) [Mass/Vol] 544.7 pg/mL 0-100 [facility] Urea nitrogen/Creatinine [Mass ratio] 16.0 mg/mg 10-20 [facility] No Panel InformationOrdered By: Tex Squires on 03-25-2022 Estimated GFR (MDRD) Amer 37 mL/min >60 [facility] Comment on above: GFR Calc Estimated GFR (MDRD) Non-Af Amer 31 mL/min >60 [facility] Comment on above: Non- GFR Calc Serum or plasma calcium dex urement (mass/volume)Ordered By: Tex Squires on 03-25-2022 Calcium [Mass/Vol] 9.1 mg/dL 8.5-10.1 [facility] Serum or plasma creatinine m easurement (mass/volume)Ordered By: Tex Squires on 03-25-2022 Creatinine [Mass/Vol] 1.69 mg/dL 0.55-1.02 [facility] Comment on above: The validity of the calculated GFR & GFRAA in patients over 70 years has not been determined. Clinical correlation is essential. Serum or plasma urea nitroge n measurement (mass/volume)Ordered By: Tex Squires on 03-25-2022 Urea nitrogen [Mass/Vol] 27 mg/dL 7-18 [facility] Thin prep Papanicolaou smear with manual screeningOrdered By: Tex Squires on 03-25-2022 Thin prep Papanicolaou smear with manual screening 8 5-15 [facility] XR CHEST 2V FRONTAL/LATon [facility] XR Chest PA and Lateralon IMPRESSION: Fluid and atelectasis at both lung bases. Early developing pneumonia cannot be excluded. Mild cardiomegaly. Follow-up recommended. Manager Validation: CANDY Transcribe Date/Time: Mar 20 2022 5:28P Dictated by : RITO MORENO MD This examination was interpreted and the report reviewed and electronically signed by: RITO MORENO MD on Mar 20 2022 5:29PM [facility] DIVISION OF RADIOLOGY * * *Final Report* * * DATE OF EXAM: Mar 20 2022 3:52PM WOX 5291 - XR CHEST 2V FRONTAL/LAT / PROCEDURE REASON: multiple diagnoses * * * * Physician Interpretation * * * * EXAMINATION: CHEST RADIOGRAPH (2 VIEW FRONTAL & LATERAL) CLINICAL HISTORY: Acute cough Fatigue, unspecified type MQ: XC2_6 EXAM DATE/TIME: 03/20/2022 3:52 PM COMPARISON: 06/02/2013 RESULT: Lines, tubes, and devices: None. Lungs and pleura: A small amount of fluid and atelectasis is seen at both lung bases. Upper lung carrion are clear. No pneumothorax Cardiomediastinal silhouette: Mildly enlarged cardiomediastinal silhouette. Bones and soft tissues: Unremarkable. DIVISION OF RADIOLOGY Provider, [facility] - 03/20/2022 * * *Final Report* * * DATE OF EXAM: Mar 20 2022 3:52PM WOX 5291 - XR CHEST 2V FRONTAL/LAT / PROCEDURE REASON: multiple diagnoses * * * * Physician Interpretation * * * * EXAMINATION: CHEST RADIOGRAPH (2 VIEW FRONTAL & LATERAL) CLINICAL HISTORY: Acute cough Fatigue, unspecified type MQ: [id number] EXAM DATE/TIME: 03/20/2022 3:52 PM COMPARISON: 06/02/2013 RESULT: Lines, tubes, and devices: None. Lungs and pleura: A small amount of fluid and atelectasis is seen at both lung bases. Upper lung carrion are clear. No pneumothorax Cardiomediastinal silhouette: Mildly enlarged cardiomediastinal silhouette. Bones and soft tissues: Unremarkable. IMPRESSION IMPRESSION: Fluid and atelectasis at both lung bases. Early developing pneumonia cannot be excluded. Mild cardiomegaly. Follow-up recommended. Manager Validation: CANDY Transcribe Date/Time: Mar 20 2022 5:28P Dictated by : RITO MORENO MD This examination was interpreted and the report reviewed and electronically signed by: RITO MORENO MD on Mar 20 2022 5:29PM EST [facility] Radiology Study observation (narrative) Lexy cardozo [facility] XR Chest PA and LateralOrder ed By: Ccf Provider on 03-20-2022 [facility] Absolute lymphocyte counton 02-23-2022 Lymphocytes Auto (Unsp spec) [#/Vol] 2.28 10*3/uL 0.83-4.51 [facility] Work Phone: Basophil percentageon 2021 Basophils/100 WBC (Bld) 0.6 % 0-1 [facility] Work Phone: Chloride [Moles/Vol] 113 mmol/L 98-107 [facility] Work Phone: Eosinophils/100 WBC (Bld) 4.8 % 0-5 [facility] Work Phone: Glucose [Mass/Vol] 87 mg/dL 74-106 [facility] Work Phone: Neutrophils (Bld) [#/Vol] 3.5 10*3/uL 2.0-7.7 [facility] Work Phone: Neutrophils/100 WBC (Bld) 51.9 % 47-70 [facility] Work Phone: Potassium [Moles/Vol] 2.9 mmol/L 3.5-5.1 [facility] Work Phone: Sodium [Moles/Vol] 142 mmol/L 136-145 [facility] Work Phone: WBC (Bld) [#/Vol] 6.8 10*3/uL 4.4-11.0 [facility] Work Phone: Blood erythrocytes count (nu mber/volume)on 02-23-2022 RBC (Bld) [#/Vol] 3.02 10*6/uL 4.2-5.4 [facility] Work Phone: Blood hemoglobin measurement (mass/volume)on 02-23-2022 Hemoglobin (Bld) [Mass/Vol] 9.5 g/dL 12.0-15.0 [facility] Work Phone: Blood lymphocytes/100 leukoc yteson 02-23-2022 Lymphocytes/100 WBC (Bld) 33.4 % 19-41 [facility] Work Phone: [phone] Blood monocytes/100 leukocyt eson 02-23-2022 Monocytes/100 WBC (Bld) 9.2 % 0-10 [facility] Work Phone: [phone] Blood platelet mean volumeon 02-23-2022 Platelet mean volume (Bld) [Entitic vol] 10.6 fL 6.2-12.0 [facility] Work Phone: [phone] Determination of erythrocyte mean corpuscular volume (MCV)on 02-23-2022 MCV (RBC) [Entitic vol] 96.0 fL 81-99 [facility] Work Phone: [phone] Hematocrit Auto (Bld) [Volum e fraction]on 02-23-2022 Hematocrit (Bld) [Volume fraction] 29.0 % 37-47 [facility] Work Phone: Laboratory - Chemistry and C hemistry - challengeon 02-23-2022 CO2 [Moles/Vol] 20.0 mmol/L 21.0-32.0 [facility] Work Phone: [phone] Urea nitrogen/Creatinine [Mass ratio] 18.7 mg/mg 10-20 [facility] Work Phone: [phone] Laboratory - Hematology and Cell countson 02-23-2022 Erythrocyte distribution width (RBC) [Entitic vol] 44.8 fL 35.1-43.9 [facility] Work Phone: [phone] Erythrocyte distribution width (RBC) [Ratio] 12.7 % 11.6-14.6 [facility] Work Phone: [phone] Immature granulocytes/100 WBC (Bld) 0.100 % 0.0-0.9 [facility] Work Phone: [phone] Comment on above: IG% - Immature Granu locytes (promyelocytes, myelocytes and metamyelocytes) > 1% indicates that a LEFT SHIFT is Present. MCH (RBC) [Entitic mass] 31.5 pg 27.0-32.0 [facility] Work Phone: Nucleated RBC/100 WBC (Bld) [Ratio] 0 % 0-5 [facility] Work Phone: MCHC Auto (RBC) [Mass/Vol]on 02-23-2022 MCHC (RBC) [Mass/Vol] 32.8 g/dL 32-36 [facility] Work Phone: No Panel Informationon 02-23 Estimated Creatinine Clearance Calc 19.60 ml/min [facility] Work Phone: Estimated GFR (MDRD) Amer 38 mL/min >60 [facility] Work Phone: Comment on above: GFR Calc Estimated GFR (MDRD) Non-Af Amer 31 mL/min >60 [facility] Work Phone: Comment on above: Non- GFR Calc Platelets bldon 02-23-2022 Platelets (Bld) [#/Vol] 191 10*3/uL 150-450 [facility] Work Phone: Serum or plasma calcium dex urement (mass/volume)on 02-23-2022 Calcium [Mass/Vol] 8.1 mg/dL 8.5-10.1 [facility] Work Phone: Serum or plasma creatinine m easurement (mass/volume)on 02-23-2022 Creatinine [Mass/Vol] 1.66 mg/dL 0.55-1.02 [facility] Work Phone: Comment on above: The validity of the calculated GFR & GFRAA in patients over 70 years has not been determined. Clinical correlation is essential. Serum or plasma urea nitroge n measurement (mass/volume)on 02-23-2022 Urea nitrogen [Mass/Vol] 31 mg/dL 7-18 [facility] Work Phone: Thin prep Papanicolaou smear with manual screeningon 02-23-2022 Thin prep Papanicolaou smear with manual screening 9 5-15 [facility] Work Phone: Basophil percentageon 2021 Cholesterol [Mass/Vol] 159 mg/dL <200 [facility] Work Phone: Comment on above: <200 mg/dL Desirable 200-240 mg/dL Borderline >240 mg/dL High Risk Triglyceride [Mass/Vol] 120 mg/dL <199 [facility] Work Phone: Comment on above: The drugs N-Acetylcy steine and Metamizole may falsely depress this assay.Serum Triglycerides Reference Interval Normal <150 mg/dL Borderline high 150 - 199 mg/dL High 200 - 499 mg/dL Very High > or = 500 mg/dL Serum or plasma cholesterol in HDL measurement (mass/volume)on 02-22-2022 Cholesterol in HDL [Mass/Vol] 48 mg/dL >40 [facility] Work Phone: Comment on above: The drugs N-Acetylcy steine and Metamizole may falsely depress this assay. Reference Range HDL <40 mg/dL Low HDL Cholesterol HDL >or= 60 mg/dL High HDL Cholesterol Serum or plasma cholesterol in VLDL measurement (mass/volume)on 02-22-2022 Cholesterol in VLDL [Mass/Vol] 24 mg/dL 5-40 [facility] Work Phone: Serum or plasma low density lipoprotein (LDL) cholesterol measurement (mass/volume)on 02-22-2022 Cholesterol in LDL [Mass/Vol] 87 mg/dL 0-130 [facility] Work Phone: Absolute lymphocyte counton 02-21-2022 Lymphocytes Auto (Unsp spec) [#/Vol] 1.70 10*3/uL 0.83-4.51 [facility] Work Phone: Basophil percentageon 2021 Basophils/100 WBC (Bld) 0.5 % 0-1 [facility] Work Phone: Chloride [Moles/Vol] 108 mmol/L 98-107 [facility] Work Phone: [phone] Eosinophils/100 WBC (Bld) 3.1 % 0-5 [facility] Work Phone: [phone] Glucose [Mass/Vol] 110 mg/dL 74-106 [facility] Work Phone: Comment on above: Fasting Glucose resu lt from 100 to 125 mg/dL suggests IMPAIRED HOMEOSTASIS per A.D.A. criteria. Neutrophils (Bld) [#/Vol] 5.2 10*3/uL 2.0-7.7 [facility] Work Phone: Neutrophils/100 WBC (Bld) 67.7 % 47-70 [facility] Work Phone: Potassium [Moles/Vol] 3.6 mmol/L 3.5-5.1 [facility] Work Phone: Sodium [Moles/Vol] 138 mmol/L 136-145 [facility] Work Phone: WBC (Bld) [#/Vol] 7.7 10*3/uL 4.4-11.0 [facility] Work Phone: Blood erythrocytes count (nu mber/volume)on 02-21-2022 RBC (Bld) [#/Vol] 3.67 10*6/uL 4.2-5.4 [facility] Work Phone: Blood hemoglobin measurement (mass/volume)on 02-21-2022 Hemoglobin (Bld) [Mass/Vol] 11.5 g/dL 12.0-15.0 [facility] Work Phone: Blood lymphocytes/100 leukoc yteson 02-21-2022 Lymphocytes/100 WBC (Bld) 22.1 % 19-41 [facility] Work Phone: Blood monocytes/100 leukocyt eson 02-21-2022 Monocytes/100 WBC (Bld) 6.5 % 0-10 [facility] Work Phone: Blood platelet mean volumeon 02-21-2022 Platelet mean volume (Bld) [Entitic vol] 10.2 fL 6.2-12.0 [facility] Work Phone: [phone] Determination of erythrocyte mean corpuscular volume (MCV)on 02-21-2022 MCV (RBC) [Entitic vol] 95.4 fL 81-99 [facility] Work Phone: [phone] Hematocrit Auto (Bld) [Volum e fraction]on 02-21-2022 Hematocrit (Bld) [Volume fraction] 35.0 % 37-47 [facility] Work Phone: [phone] Laboratory - Chemistry and C hemistry - challengeon 02-21-2022 CO2 [Moles/Vol] 23.0 mmol/L 21.0-32.0 [facility] Work Phone: [phone] Urea nitrogen/Creatinine [Mass ratio] 17.5 mg/mg 10-20 [facility] Work Phone: [phone] Laboratory - Hematology and Cell countson 02-21-2022 Erythrocyte distribution width (RBC) [Entitic vol] 43.9 fL 35.1-43.9 [facility] Work Phone: [phone] Erythrocyte distribution width (RBC) [Ratio] 12.6 % 11.6-14.6 [facility] Work Phone: [phone] Immature granulocytes/100 WBC (Bld) 0.100 % 0.0-0.9 [facility] Work Phone: [phone] Comment on above: IG% - Immature Granu locytes (promyelocytes, myelocytes and metamyelocytes) > 1% indicates that a LEFT SHIFT is Present. MCH (RBC) [Entitic mass] 31.3 pg 27.0-32.0 [facility] Work Phone: [phone] Nucleated RBC/100 WBC (Bld) [Ratio] 0 % 0-5 [facility] Work Phone: [phone] MCHC Auto (RBC) [Mass/Vol]on 02-21-2022 MCHC (RBC) [Mass/Vol] 32.9 g/dL 32-36 [facility] Work Phone: [phone] No Panel Informationon 02-21 Troponin I High Sensitivity 138 pg/mL 3.0-54.0 [facility] Work Phone: [phone] Comment on above: Critical Result(s) C alled at: 23:16:00 02/21/2022 by: Mk Webber PCU. Results read back by same. Please Note: New Test Units and Gender Specific Reference Ranges. For more information see Policy Stat Procedure [place] High Sensitivity Troponin (TNIH) and attachments. Estimated Creatinine Clearance Calc 19.60 ml/min [facility] Work Phone: Estimated GFR (MDRD) Amer 38 mL/min >60 [facility] Work Phone: Comment on above: GFR Calc Estimated GFR (MDRD) Non-Af Amer 31 mL/min >60 [facility] Work Phone: Comment on above: Non- GFR Calc Troponin I High Sensitivity 153 pg/mL 3.0-54.0 [facility] Work Phone: Comment on above: Critical Result(s) C alled at: 17:26:27 02/21/2022 by: Mk Chatman to [facility]. Results read back by same. Please Note: New Test Units and Gender Specific Reference Ranges. For more information see Policy Stat Procedure [place] High Sensitivity Troponin (TNIH) and attachments. Platelets bldon 02-21-2022 Platelets (Bld) [#/Vol] 221 10*3/uL 150-450 [facility] Work Phone: Serum or plasma calcium dex urement (mass/volume)on 02-21-2022 Calcium [Mass/Vol] 9.4 mg/dL 8.5-10.1 oste r [facility] Work Phone: Serum or plasma creatinine m easurement (mass/volume)on 02-21-2022 Creatinine [Mass/Vol] 1.66 mg/dL 0.55-1.02 [facility] Work Phone: Comment on above: The validity of the calculated GFR & GFRAA in patients over 70 years has not been determined. Clinical correlation is essential. Serum or plasma urea nitroge n measurement (mass/volume)on 02-21-2022 Urea nitrogen [Mass/Vol] 29 mg/dL 7-18 [facility] Work Phone: Thin prep Papanicolaou smear with manual screeningon 02-21-2022 Thin prep Papanicolaou smear with manual screening 7 5-15 [facility] Work Phone: Absolute lymphocyte counton 02-13-2022 Lymphocytes Auto (Unsp spec) [#/Vol] 1.72 10*3/uL 0.83-4.51 [facility] Work Phone: [phone] Basophil percentageon 2021 Basophils/100 WBC (Bld) 0.6 % 0-1 [facility] Work Phone: Eosinophils/100 WBC (Bld) 5.2 % 0-5 [facility] Work Phone: Neutrophils (Bld) [#/Vol] 3.7 10*3/uL 2.0-7.7 [facility] Work Phone: Neutrophils/100 WBC (Bld) 59.8 % 47-70 [facility] Work Phone: WBC (Bld) [#/Vol] 6.2 10*3/uL 4.4-11.0 [facility] Work Phone: Blood erythrocytes count (nu mber/volume)on 02-13-2022 RBC (Bld) [#/Vol] 3.25 10*6/uL 4.2-5.4 [facility] Work Phone: Blood hemoglobin measurement (mass/volume)on 02-13-2022 Hemoglobin (Bld) [Mass/Vol] 10.6 g/dL 12.0-15.0 [facility] Work Phone: Blood lymphocytes/100 leukoc yteson 02-13-2022 Lymphocytes/100 WBC (Bld) 27.7 % 19-41 [facility] Work Phone: Blood monocytes/100 leukocyt eson 02-13-2022 Monocytes/100 WBC (Bld) 6.4 % 0-10 [facility] Work Phone: Blood platelet mean volumeon 02-13-2022 Platelet mean volume (Bld) [Entitic vol] 10.0 fL 6.2-12.0 [facility] Work Phone: [phone] Determination of erythrocyte mean corpuscular volume (MCV)on 02-13-2022 MCV (RBC) [Entitic vol] 97.5 fL 81-99 [facility] Work Phone: [phone] Hematocrit Auto (Bld) [Volum e fraction]on 02-13-2022 Hematocrit (Bld) [Volume fraction] 31.7 % 37-47 [facility] Work Phone: [phone] Hemoglobin in reticulocytes (mass per reticulocyte)on 02-13-2022 Hemoglobin (Reticulocytes) [Entitic mass] 34.6 pg 30-35 [facility] Work Phone: [phone] Iron measurement (mass/mass) on 02-13-2022 Iron (Unsp spec) [Mass/Mass] 80 ug/dL 50-170 [facility] Work Phone: [phone] Laboratory - Hematology and Cell countson 02-13-2022 Erythrocyte distribution width (RBC) [Entitic vol] 45.6 fL 35.1-43.9 [facility] Work Phone: [phone] Erythrocyte distribution width (RBC) [Ratio] 12.9 % 11.6-14.6 [facility] Work Phone: [phone] Immature granulocytes/100 WBC (Bld) 0.300 % 0.0-0.9 [facility] Work Phone: [phone] Comment on above: IG% - Immature Granu locytes (promyelocytes, myelocytes and metamyelocytes) > 1% indicates that a LEFT SHIFT is Present. MCH (RBC) [Entitic mass] 32.6 pg 27.0-32.0 [facility] Work Phone: [phone] Nucleated RBC/100 WBC (Bld) [Ratio] 0 % 0-5 [facility] Work Phone: [phone] MCHC Auto (RBC) [Mass/Vol]on 02-13-2022 MCHC (RBC) [Mass/Vol] 33.4 g/dL 32-36 [facility] Work Phone: [phone] Panel Informationon 02-13 Immature Reticulocyte Fraction 3.80 % 3.00-15.90 [facility] Work Phone: [phone] Reticulocyte Count 1.34 % 0.5-1.5 [facility] Work Phone: [phone] Total Iron Binding Capacity 233 ug/dL 250-450 [facility] Work Phone: Platelets bldon 02-13-2022 Platelets (Bld) [#/Vol] 210 10*3/uL 150-450 [facility] Work Phone: Serum or plasma ferritin kemal surement (mass/volume)on 02-13-2022 Ferritin [Mass/Vol] 142 ng/mL 8-252 [facility] Work Phone: [phone] Serum or plasma iron saturat ion measurement (mass fraction)on 02-13-2022 Iron saturation [Mass fraction] 34.3 % 15.0-55.0 [facility] Work Phone: XR Thoracic spine AP and Lat eralon 09-25-2020 IMPRESSION: Spondylosis and osteopenia. No acute osseous abnormality identified. Manager Validation: CANDY Transcribe Date/Time: Sep 25 2020 3:32P Dictated by : LAVELLE CHURCHILL MD This examination was interpreted and the report reviewed and electronically signed by: LAVELLE CHURCHILL MD on Sep 25 2020 3:35PM [facility] DIVISION OF RADIOLOGY * * *Final Report* * * DATE OF EXAM: Sep 25 2020 2:16PM WOX [id number] - XR THORACIC 2V AP/LAT / PROCEDURE REASON: Mid back pain * * * * Physician Interpretation * * * * Thoracic spine radiographs HISTORY: 84 years old Clinical information: Mid back pain Chronic posterior upper back achiness, distal of shoulder blades TECHNIQUE: Images: XR THORACIC 2V AP/LAT Comparison: None. RESULT: Findings: Diffuse osteopenia. Intervertebral disc space narrowing and endplate osteophyte formation at multiple levels in the thoracic spine. No fracture. Paraspinous soft tissues are unremarkable in appearance. DIVISION OF RADIOLOGY Provider, [facility] [place] - 09/25/2020 * * *Final Report* * * DATE OF EXAM: Sep 25 2020 2:16PM WOX [id number] - XR THORACIC 2V AP/LAT / PROCEDURE REASON: Mid back pain * * * * Physician Interpretation * * * * Thoracic spine radiographs HISTORY: 84 years old Clinical information: Mid back pain Chronic posterior upper back achiness, distal of shoulder blades TECHNIQUE: Images: XR THORACIC 2V AP/LAT Comparison: None. RESULT: Findings: Diffuse osteopenia. Intervertebral disc space narrowing and endplate osteophyte formation at multiple levels in the thoracic spine. No fracture. Paraspinous soft tissues are unremarkable in appearance. IMPRESSION IMPRESSION: Spondylosis and osteopenia. No acute osseous abnormality identified. [facility] Transcribe Date/Time: Sep 25 2020 3:32P Dictated by : LAVELLE CHURCHILL MD This examination was interpreted and the report reviewed and electronically signed by: LAVELLE CHURCHILL MD on Sep 25 2020 3:35PM EST [facility] Radiology Study observation (narrative) [facility] XR Thoracic spine AP and Lat eralOrdered By: Ccf Provider on 09-25-2020 [facility] Culture, urine Bacteria identified Cx Nom (U) Culture exhibits no growth. [facility] Work Phone: Bacteria identified Cx Nom (U) Klebsiella pneumoniae sp pneum [facility] Work Phone: Bacteria identified Cx Nom (U) Positive [facility] Work Phone: ECG B/O W INTERP (MED OFFICE ) [facility] Vital Signs Date Time Vital Sign Value Performing Clinician Facility 02-22-2025 13:31-0400 Body height 157.[address] Anay Schuler MD Work Phone: [facility] 02-22-2025 13:31-0400 Body mass index (BMI) [Ratio] 23.9 kg/m2 Dr. Anay Schuler MD Work Phone: [facility] 02-22-2025 13:31-0400 Body weight 59.[address] Anay Schuler MD Work Phone: [facility] 02-22-2025 13:31-0400 Diastolic blood pressure 76 mm[Hg] Dr. Anay Schuler MD Work Phone: [phone] [place] [address] 02-22-2025 13:31-0400 Heart rate 50 /min Dr. Anay Schuler MD Work Phone: [phone] [place] [address] 02-22-2025 13:31-0400 Systolic blood pressure 152 mm[Hg] Dr. Anay Schuler MD Work Phone: [phone] [address] [address] 01-09-2025 11:55-0400 Diastolic blood pressure 61 mm[Hg] Dr. Anay Schuler MD Work Phone: [phone] [address] [address] 01-09-2025 11:55-0400 Systolic blood pressure 170 mm[Hg] Dr. Anay Schuler MD Work Phone: [phone] [address] [address] 01-09-2025 11:32-0400 Body height 157.[address] Anay Schuler MD Work Phone: [phone] [place] [address] 01-09-2025 11:32-0400 Body mass index (BMI) [Ratio] 24.1 kg/m2 Dr. Anay Schuler MD Work Phone: [phone] [place] [address] 01-09-2025 11:32-0400 Body weight 59.[address] Anay Schuler MD Work Phone: [phone] [address] [address] 01-09-2025 11:32-0400 Heart rate 52 /min Dr. Anay Schuler MD Work Phone: [phone] [address] [address] 01-09-2025 11:32-0400 Respiratory rate 18 /min Dr. Anay Schuler MD Work Phone: [phone] [address] [address] 01-09-2025 11:32-0400 SaO2% (BldA) [Mass fraction] 96 % Dr. Anay Schuler MD Work Phone: [phone] [place] [address] 01-03-2025 14:09-0400 Body mass index (BMI) [Ratio] 23.59 kg/m2 Anay Schuler MD Work Phone: [phone] [place] [address] 01-03-2025 14:09-0400 Body weight 58.51 kg Anay Schuler MD Work Phone: [phone] [place] [address] 01-03-2025 14:09-0400 Diastolic blood pressure 65 mm[Hg] Anay Schuler MD Work Phone: [facility] 01-03-2025 14:09-0400 Heart rate 58 /min Anay Schuler MD Work Phone: [facility] 01-03-2025 14:09-0400 Respiratory rate 16 /min Anay Schuler MD Work Phone: [facility] 01-03-2025 14:09-0400 Systolic blood pressure 164 mm[Hg] Anay Schuler MD Work Phone: [facility] 12-21-2024 14:41-0400 Diastolic blood pressure 60 mm[Hg] Silvio Older DIRECTOR TRANSLATION.BILLING AND ACCOUNTING STAFF ASSISTANT Work Phone: [facility] 12-21-2024 14:41-0400 Systolic blood pressure 194 mm[Hg] Silvio Older DIRECTOR TRANSLATION.BILLING AND ACCOUNTING STAFF ASSISTANT Work Phone: [facility] 12-21-2024 13:56-0400 Body mass index (BMI) [Ratio] 23.37 kg/m2 Silvio Older DIRECTOR TRANSLATION.BILLING AND ACCOUNTING STAFF ASSISTANT Work Phone: [facility] 12-21-2024 13:56-0400 Body weight 57.97 kg Silvio Older DIRECTOR TRANSLATION.BILLING AND ACCOUNTING STAFF ASSISTANT Work Phone: [facility] 12-21-2024 13:56-0400 Heart rate 56 /min Silvio Older DIRECTOR TRANSLATION.BILLING AND ACCOUNTING STAFF ASSISTANT Work Phone: [facility] 12-21-2024 13:56-0400 Respiratory rate 16 /min Silvio Older DIRECTOR TRANSLATION.BILLING AND ACCOUNTING STAFF ASSISTANT Work Phone: [facility] 12-12-2024 13:40-0400 Body mass index (BMI) [Ratio] 24.87 kg/m2 Silvio Older DIRECTOR TRANSLATION.BILLING AND ACCOUNTING STAFF ASSISTANT Work Phone: [facility] 12-12-2024 13:40-0400 Body temperature 97.59 [degF] Silvio Older DIRECTOR TRANSLATION.BILLING AND ACCOUNTING STAFF ASSISTANT Work Phone: [facility] 12-12-2024 13:40-0400 Body weight 61.69 kg Silvio Older DIRECTOR TRANSLATION.BILLING AND ACCOUNTING STAFF ASSISTANT Work Phone: [facility] 12-12-2024 13:40-0400 Diastolic blood pressure 92 mm[Hg] Silvio Older DIRECTOR TRANSLATION.BILLING AND ACCOUNTING STAFF ASSISTANT Work Phone: [facility] 12-12-2024 13:40-0400 Heart rate 62 /min Silvio Older DIRECTOR TRANSLATION.BILLING AND ACCOUNTING STAFF ASSISTANT Work Phone: [facility] 12-12-2024 13:40-0400 Respiratory rate 16 /min Silvio Older DIRECTOR TRANSLATION.BILLING AND ACCOUNTING STAFF ASSISTANT Work Phone: [facility] 12-12-2024 13:40-0400 SaO2% (BldA) [Mass fraction] 93 % Silvio Older DIRECTOR TRANSLATION.BILLING AND ACCOUNTING STAFF ASSISTANT Work Phone: [facility] 12-12-2024 13:40-0400 Systolic blood pressure 158 mm[Hg] Silvio Older DIRECTOR TRANSLATION.BILLING AND ACCOUNTING STAFF ASSISTANT Work Phone: [facility] 11-28-2024 15:50-0400 Body mass index (BMI) [Ratio] 25.46 kg/m2 Anay Schuler MD Work Phone: [facility] 11-28-2024 15:50-0400 Body weight 63.14 kg Anay Schuler MD Work Phone: [facility] 11-28-2024 15:50-0400 Diastolic blood pressure 94 mm[Hg] Anay Schuler MD Work Phone: [facility] 11-28-2024 15:50-0400 Heart rate 56 /min Anay Schuler MD Work Phone: [facility] 11-28-2024 15:50-0400 Respiratory rate 18 /min Anay Schuler MD Work Phone: [facility] 11-28-2024 15:50-0400 Systolic blood pressure 152 mm[Hg] Anay Schuler MD Work Phone: [facility] 11-25-2024 13:55-0400 Body height [address] Anay Schuler MD Work Phone: 3(195)944-757032 [place] [address] 11-25-2024 13:55-0400 Body mass index (BMI) [Ratio] 25.7 kg/m2 Dr. Anay Schuler MD Work Phone: 0(993)857-803532 [place] [address] 11-25-2024 13:55-0400 Body weight 63.[address] Anay Schuler MD Work Phone: 4(838)421-824432 [place] [address] 11-25-2024 13:55-0400 Diastolic blood pressure 67 mm[Hg] Dr. Anay Schuler MD Work Phone: 1(313)225-834632 [address] [address] 11-25-2024 13:55-0400 Heart rate 64 /min Dr. Anay Schuler MD Work Phone: 8(467)292-704832 [place] [address] 11-25-2024 13:55-0400 Respiratory rate 16 /min Dr. Anay Schuler MD Work Phone: 7(201)307-003632 [address] [address] 11-25-2024 13:55-0400 Systolic blood pressure 223 mm[Hg] Dr. Anay Schuler MD Work Phone: 8(794)115-200532 [address] [address] 11-19-2024 15:23-0400 Diastolic blood pressure 87 mm[Hg] Dr. Anay Schuler MD Work Phone: 0(486)295-680432 [address] [address] 11-19-2024 15:23-0400 Systolic blood pressure 178 mm[Hg] Dr. Anay Schuler MD Work Phone: 9(449)629-244232 [address] [address] 11-19-2024 15:00-0400 Heart rate 44 /min Dr. Anay Schuler MD Work Phone: 1(621)703-847132 [address] [address] 11-19-2024 15:00-0400 SaO2% (BldA) [Mass fraction] 96 % Dr. Anay Schuler MD Work Phone: 4(237)181-913232 [address] [address] 11-19-2024 14:55-0400 Body temperature 98.4 [degF] Dr. Anay Schuler MD Work Phone: 9(840)410-932932 [address] [address] 11-19-2024 14:55-0400 Respiratory rate 16 /min Dr. Anay Schuler MD Work Phone: 9(360)601-778232 [address] [address] 11-19-2024 09:12-0400 Body mass index (BMI) [Ratio] 25.4 kg/m2 Dr. Anay Schuler MD Work Phone: 5(100)284-180732 [address] [address] 11-19-2024 09:12-0400 Body weight 63.[address] Anay Schuler MD Work Phone: 0(173)015-513532 [address] [address] 11-15-2024 11:30-0400 Diastolic blood pressure 89 mm[Hg] Dr. Anay Schuler MD Work Phone: 6(874)396-677632 [address] [address] 11-15-2024 11:30-0400 Heart rate 118 /min Dr. Anay Schuler MD Work Phone: 7(500)394-922632 [address] [address] 11-15-2024 11:30-0400 Respiratory rate 18 /min Dr. Anay Schuler MD Work Phone: 0(813)813-186232 [address] [address] 11-15-2024 11:30-0400 SaO2% (BldA) [Mass fraction] 95 % Dr. Anay Schuler MD Work Phone: 4(708)644-839632 [address] [address] 11-15-2024 11:30-0400 Systolic blood pressure 123 mm[Hg] Dr. Anay Schuler MD Work Phone: 9(031)913-534432 [address] [address] 11-14-2024 12:52-0400 Diastolic blood pressure 100 mm[Hg] Anay Schuler MD Work Phone: 6(717)103-074882 [place] [address] 11-14-2024 12:52-0400 Heart rate 119 /min Anay Schuler MD Work Phone: 8(414)068-594582 [place] [address] 11-14-2024 12:52-0400 Systolic blood pressure 158 mm[Hg] Anay Schuler MD Work Phone: 7(447)094-985549 [place] [address] 11-14-2024 12:51-0400 Body mass index (BMI) [Ratio] 25.31 kg/m2 Anay Schuler MD Work Phone: 3(667)845-852649 [place] [address] 11-14-2024 12:51-0400 Body weight 62.78 kg Anay Schuler MD Work Phone: 2(564)556-194582 [place] [address] 11-14-2024 12:51-0400 Respiratory rate 16 /min Anay Schuler MD Work Phone: 3(212)013-184382 [place] [address] 11-14-2024 12:51-0400 SaO2% (BldA) [Mass fraction] 99 % Anay Schuler MD Work Phone: 8(327)811-517682 [place] [address] 11-11-2024 13:58-0400 Body height 157.[address] Anay Schuler MD Work Phone: 1(533)404-575532 [address] [address] 11-11-2024 13:58-0400 Body mass index (BMI) [Ratio] 24.8 kg/m2 Dr. Anay Schuler MD Work Phone: 1(134)655-456732 [place] [address] 11-11-2024 13:58-0400 Body weight 61.[address] Anay Schuler MD Work Phone: 5(197)961-016832 [address] [address] 11-11-2024 13:58-0400 Diastolic blood pressure 96 mm[Hg] Dr. Anay Schuler MD Work Phone: 3(250)620-294632 [address] [address] 11-11-2024 13:58-0400 Heart rate 133 /min Dr. Anay Schuler MD Work Phone: 2(617)617-419732 [place] [address] 11-11-2024 13:58-0400 Respiratory rate 18 /min Dr. Anay Schuler MD Work Phone: 4(077)924-470732 [place] [address] 11-11-2024 13:58-0400 SaO2% (BldA) [Mass fraction] 95 % Dr. Anay Schuler MD Work Phone: 4(159)992-512732 [address] [address] 11-11-2024 13:58-0400 Systolic blood pressure 137 mm[Hg] Dr. Anay Schuler MD Work Phone: 5(524)951-773832 [address] [address] 11-03-2024 11:10-0400 Body temperature 97.3 [degF] Dr. Anay Schuler MD Work Phone: 3(508)868-697232 [address] [address] 11-03-2024 11:10-0400 Diastolic blood pressure 60 mm[Hg] Dr. Anay Schuler MD Work Phone: 3(208)353-548532 [place] [address] 11-03-2024 11:10-0400 Heart rate 46 /min Dr. Anay Schuler MD Work Phone: 4(441)057-344132 [place] [address] 11-03-2024 11:10-0400 Respiratory rate 18 /min Dr. Anay Schuler MD Work Phone: 8(213)146-355332 [address] [address] 11-03-2024 11:10-0400 SaO2% (BldA) [Mass fraction] 100 % Dr. Anay Schuler MD Work Phone: 7(684)588-770132 [place] [address] 11-03-2024 11:10-0400 Systolic blood pressure 163 mm[Hg] Dr. Anay Schuler MD Work Phone: 3(687)044-786832 [place] [address] 11-03-2024 03:04-0400 Body mass index (BMI) [Ratio] 27.8 kg/m2 Dr. Anay Schuler MD Work Phone: 0(519)368-627832 [place] [address] 11-03-2024 03:04-0400 Body weight [address] Anay Schuler MD Work Phone: 1(974)209-779432 [place] [address] 11-02-2024 05:38-0400 Body mass index (BMI) [Ratio] 27.8 kg/m2 Dr. Anay Schuler MD Work Phone: 7(664)276-644032 [place] [address] 11-02-2024 05:38-0400 Body weight 69.[address] Anay Schuler MD Work Phone: 8(069)780-480132 [place] [address] 11-02-2024 03:20-0400 Body temperature 96.4 [degF] Dr. Anay Schuler MD Work Phone: 3(161)187-245132 [place] [address] 11-02-2024 03:20-0400 Diastolic blood pressure 53 mm[Hg] Dr. Anay Schuler MD Work Phone: 1(417)669-876132 [place] [address] 11-02-2024 03:20-0400 Heart rate 51 /min Dr. Anay Schuler MD Work Phone: 9(095)489-923632 [place] [address] 11-02-2024 03:20-0400 Respiratory rate 16 /min Dr. Anay Schuler MD Work Phone: 6(893)716-696232 [place] [address] 11-02-2024 03:20-0400 SaO2% (BldA) [Mass fraction] 96 % Dr. Anay Schuler MD Work Phone: 9(565)234-928232 [address] [address] 11-02-2024 03:20-0400 Systolic blood pressure 148 mm[Hg] Dr. Anay Schuler MD Work Phone: 9(201)651-146532 [place] [address] 11-01-2024 14:15-0400 Body height 157.[address] Anay Schuler MD Work Phone: 4(829)269-425332 [place] [address] 10-24-2024 13:15-0400 Body mass index (BMI) [Ratio] 25.6 kg/m2 Dr. Anay Schuler MD Work Phone: 5(696)997-835832 [place] [address] 10-24-2024 13:15-0400 Body weight 63.[address] Anay Schuler MD Work Phone: 6(159)997-761032 [place] [address] 10-24-2024 13:15-0400 Diastolic blood pressure 85 mm[Hg] Dr. Anay Schuler MD Work Phone: 4(667)227-815632 [place] [address] 10-24-2024 13:15-0400 Heart rate 116 /min Dr. Anay Schuler MD Work Phone: 0(791)098-380632 [place] [address] 10-24-2024 13:15-0400 Respiratory rate 18 /min Dr. Anay Schuler MD Work Phone: 0(767)370-374232 [address] [address] 10-24-2024 13:15-0400 SaO2% (BldA) [Mass fraction] 100 % Dr. Anay Schuler MD Work Phone: 3(252)015-785832 [place] [address] 10-24-2024 13:15-0400 Systolic blood pressure 114 mm[Hg] Dr. Anay Schuler MD Work Phone: 0(517)086-921132 [address] [address] 10-17-2024 13:37-0400 Body mass index (BMI) [Ratio] 24.87 kg/m2 Silvio Drake APRN.CNP Work Phone: 6(007)855-766582 [place] [address] 10-17-2024 13:37-0400 Body temperature 96.8 [degF] Silvio Older DIRECTOR TRANSLATION.BILLING AND ACCOUNTING STAFF ASSISTANT Work Phone: [facility] 10-17-2024 13:37-0400 Body weight 61.69 kg Silvio Older DIRECTOR TRANSLATION.BILLING AND ACCOUNTING STAFF ASSISTANT Work Phone: [facility] 10-17-2024 13:37-0400 Diastolic blood pressure 84 mm[Hg] Silvio Older DIRECTOR TRANSLATION.BILLING AND ACCOUNTING STAFF ASSISTANT Work Phone: [facility] 10-17-2024 13:37-0400 Heart rate 62 /min Silvio Older DIRECTOR TRANSLATION.BILLING AND ACCOUNTING STAFF ASSISTANT Work Phone: [facility] 10-17-2024 13:37-0400 Respiratory rate 16 /min Silvio Older DIRECTOR TRANSLATION.BILLING AND ACCOUNTING STAFF ASSISTANT Work Phone: [facility] 10-17-2024 13:37-0400 SaO2% (BldA) [Mass fraction] 100 % Older DIRECTOR TRANSLATION.BILLING AND ACCOUNTING STAFF ASSISTANT Work Phone: [facility] 10-17-2024 13:37-0400 Systolic blood pressure 152 mm[Hg] DIRECTOR TRANSLATION.BILLING AND ACCOUNTING STAFF ASSISTANT Work Phone: [facility] 10-13-2024 07:58-0400 Body temperature 97.9 [degF] Dr. Anay Schuler MD Work Phone: [facility] 10-13-2024 07:58-0400 Diastolic blood pressure 73 mm[Hg] Dr. Anay Schuler MD Work Phone: [facility] 10-13-2024 07:58-0400 Heart rate 80 /min Dr. Anay Schuler MD Work Phone: [facility] 10-13-2024 07:58-0400 Respiratory rate 16 /min Dr. Anay Schuler MD Work Phone: [facility] 10-13-2024 07:58-0400 SaO2% (BldA) [Mass fraction] 98 % Dr. Anay Schuler MD Work Phone: [facility] 10-13-2024 07:58-0400 Systolic blood pressure 149 mm[Hg] Dr. Anay Schuler MD Work Phone: 8(886)042-230032 [address] [address] 10-13-2024 02:46-0400 Body mass index (BMI) [Ratio] 26.6 kg/m2 Dr. Anay Schuler MD Work Phone: 8(846)932-743132 [place] [address] 10-13-2024 02:46-0400 Body weight [address] Anay cShuler MD Work Phone: 0(132)773-980732 [address] [address] 10-11-2024 15:09-0400 Diastolic blood pressure 80 mm[Hg] Dr. Anay Schuler MD Work Phone: 0(042)103-571032 [place] [address] 10-11-2024 15:09-0400 Heart rate 130 /min Dr. Anay Schuler MD Work Phone: 2(055)491-427332 [place] [address] 10-11-2024 15:09-0400 Respiratory rate 18 /min Dr. Anay Schuler MD Work Phone: 1(423)514-145032 [place] [address] 10-11-2024 15:09-0400 SaO2% (BldA) [Mass fraction] 97 % Dr. Anay Schuler MD Work Phone: 9(877)650-705532 [place] [address] 10-11-2024 15:09-0400 Systolic blood pressure 117 mm[Hg] Dr. Anay Schuler MD Work Phone: 7(862)876-654832 [address] [address] 10-11-2024 11:08-0400 Body height 157.[address] nAay Schuler MD Work Phone: 2(916)208-370132 [place] [address] 10-11-2024 11:08-0400 Body mass index (BMI) [Ratio] 25.9 kg/m2 Dr. Anay Schuler MD Work Phone: 3(296)759-532932 [place] [address] 10-11-2024 11:08-0400 Body temperature 97.7 [degF] Dr. Anay Schuler MD Work Phone: 9(539)840-480432 [address] [address] 10-11-2024 11:08-0400 Body weight 64.[address] Anay Schuler MD Work Phone: 4(576)321-657032 [place] [address] 10-08-2024 12:00-0400 Body mass index (BMI) [Ratio] 26.01 kg/m2 Michael Praisler-Wood DIRECTOR TRANSLATION.BILLING AND ACCOUNTING STAFF ASSISTANT Work Phone: [facility] 10-08-2024 12:00-0400 Body temperature 99.19 [degF] Michael Praisler-Wood DIRECTOR TRANSLATION.BILLING AND ACCOUNTING STAFF ASSISTANT Work Phone: [facility] 10-08-2024 12:00-0400 Body weight 64.5 kg Michael Praisler-Wood DIRECTOR TRANSLATION.BILLING AND ACCOUNTING STAFF ASSISTANT Work Phone: [facility] 10-08-2024 12:00-0400 Diastolic blood pressure 72 mm[Hg] Michael Praisler-Wood DIRECTOR TRANSLATION.BILLING AND ACCOUNTING STAFF ASSISTANT Work Phone: [facility] 10-08-2024 12:00-0400 Heart rate 62 /min Michael Praisler-Wood DIRECTOR TRANSLATION.BILLING AND ACCOUNTING STAFF ASSISTANT Work Phone: [facility] 10-08-2024 12:00-0400 Respiratory rate 16 /min Michael Praisler-Wood DIRECTOR TRANSLATION.BILLING AND ACCOUNTING STAFF ASSISTANT Work Phone: [facility] 10-08-2024 12:00-0400 SaO2% (BldA) [Mass fraction] 95 % Michael Praisler-Wood DIRECTOR TRANSLATION.BILLING AND ACCOUNTING STAFF ASSISTANT Work Phone: [facility] 10-08-2024 12:00-0400 Systolic blood pressure 132 mm[Hg] Michael Praisler-Wood DIRECTOR TRANSLATION.BILLING AND ACCOUNTING STAFF ASSISTANT Work Phone: [facility] 09-26-2024 13:46-0400 Body mass index (BMI) [Ratio] 25.61 kg/m2 Silvio Older DIRECTOR TRANSLATION.BILLING AND ACCOUNTING STAFF ASSISTANT Work Phone: [facility] 09-26-2024 13:46-0400 Body temperature 97.11 [degF] Silvio Older DIRECTOR TRANSLATION.BILLING AND ACCOUNTING STAFF ASSISTANT Work Phone: [facility] 09-26-2024 13:46-0400 Body weight 63.5 kg Silvio Older DIRECTOR TRANSLATION.BILLING AND ACCOUNTING STAFF ASSISTANT Work Phone: [facility] 09-26-2024 13:46-0400 Diastolic blood pressure 82 mm[Hg] Silvio Older DIRECTOR TRANSLATION.BILLING AND ACCOUNTING STAFF ASSISTANT Work Phone: [facility] 09-26-2024 13:46-0400 Heart rate 60 /min Silvio Older DIRECTOR TRANSLATION.BILLING AND ACCOUNTING STAFF ASSISTANT Work Phone: [facility] 09-26-2024 13:46-0400 Respiratory rate 16 /min Silvio Older DIRECTOR TRANSLATION.BILLING AND ACCOUNTING STAFF ASSISTANT Work Phone: [facility] 09-26-2024 13:46-0400 SaO2% (BldA) [Mass fraction] 100 % Silvio Older DIRECTOR TRANSLATION.BILLING AND ACCOUNTING STAFF ASSISTANT Work Phone: [facility] 09-26-2024 13:46-0400 Systolic blood pressure 138 mm[Hg] Silvio Older DIRECTOR TRANSLATION.BILLING AND ACCOUNTING STAFF ASSISTANT Work Phone: [facility] 09-09-2024 15:24-0400 Body mass index (BMI) [Ratio] 25.42 kg/m2 Anay Schuler MD Work Phone: [facility] 09-09-2024 15:24-0400 Body weight 63.05 kg Anay Schuler MD Work Phone: [facility] 09-09-2024 15:24-0400 Diastolic blood pressure 70 mm[Hg] Anay Schuler MD Work Phone: [facility] 09-09-2024 15:24-0400 Heart rate 58 /min Anay Schuler MD Work Phone: [facility] 09-09-2024 15:24-0400 Respiratory rate 12 /min nAay Schuler MD Work Phone: [facility] 09-09-2024 15:24-0400 SaO2% (BldA) [Mass fraction] 97 % Anay Schuler MD Work Phone: [facility] 09-09-2024 15:24-0400 Systolic blood pressure 122 mm[Hg] Anay Schuler MD Work Phone: [facility] 08-27-2024 01:51-0500 Body temperature 98.1 [degF] Dr. Anay Schuler MD Work Phone: 2(957)580-225216 [place] [address] 08-27-2024 01:51-0500 Diastolic blood pressure 60 mm[Hg] Dr. Anay Schuler MD Work Phone: 7(313)005-680732 [address] [address] 08-27-2024 01:51-0500 Heart rate 60 /min Dr. Anay Schuler MD Work Phone: 2(634)164-532032 [place] [address] 08-27-2024 01:51-0500 Respiratory rate 18 /min Dr. Anay Schuler MD Work Phone: 7(700)292-681832 [address] [address] 08-27-2024 01:51-0500 SaO2% (BldA) [Mass fraction] 94 % Dr. Anay Schuler MD Work Phone: 2(380)351-586632 [place] [address] 08-27-2024 01:51-0500 Systolic blood pressure 185 mm[Hg] Dr. Anay Schuler MD Work Phone: 3(226)115-862332 [address] [address] 08-26-2024 23:51-0500 Body mass index (BMI) [Ratio] 26.4 kg/m2 Dr. Anay Schuler MD Work Phone: 8(602)672-914332 [place] [address] 08-26-2024 23:51-0500 Body weight 65.[address] Anay Schuler MD Work Phone: 7(311)685-246832 [place] [address] 08-02-2024 13:42-0500 Body height 157.5 cm Anay Schuler MD Work Phone: 0(823)204-744182 [place] [address] 08-02-2024 13:42-0500 Body mass index (BMI) [Ratio] 25.83 kg/m2 Anay Schuler MD Work Phone: 1(351)652-976382 [place] [address] 08-02-2024 13:42-0500 Body weight 64.05 kg Anay Schuler MD Work Phone: 9(780)346-468449 [place] [address] 08-02-2024 13:42-0500 Diastolic blood pressure 78 mm[Hg] Anay Schuler MD Work Phone: 4(433)958-781849 [place] [address] 08-02-2024 13:42-0500 Heart rate 67 /min Anay Schuler MD Work Phone: 4(993)220-977049 [place] [address] 08-02-2024 13:42-0500 SaO2% (BldA) [Mass fraction] 98 % Anay Schuler MD Work Phone: [facility] 08-02-2024 13:42-0500 Systolic blood pressure 124 mm[Hg] Anay Schuler MD Work Phone: 6(749)922-475049 [place] [address] 06-14-2024 12:52-0500 Body mass index (BMI) [Ratio] 25.9 kg/m2 Dr. Anay Schuler MD Work Phone: 2(800)205-632316 [place] [address] 06-14-2024 12:52-0500 Body weight 64.[address] Anay Schuler MD Work Phone: 2(931)871-826532 [place] [address] 06-14-2024 12:52-0500 Diastolic blood pressure 61 mm[Hg] Dr. Anay Schuler MD Work Phone: 9(572)781-140032 [address] [address] 06-14-2024 12:52-0500 Heart rate 63 /min Dr. Anay Schuler MD Work Phone: 7(559)511-319332 [place] [address] 06-14-2024 12:52-0500 SaO2% (BldA) [Mass fraction] 96 % Dr. Anay Schuler MD Work Phone: 7(091)269-345832 [address] [address] 06-14-2024 12:52-0500 Systolic blood pressure 175 mm[Hg] Dr. Anay Schuler MD Work Phone: 1(340)544-069616 [place] [address] 06-10-2024 15:33-0500 Body mass index (BMI) [Ratio] 25.81 kg/m2 Jeremy Yu MD Work Phone: [facility] 06-10-2024 15:33-0500 Body temperature 97.81 [degF] Jeremy Yu MD Work Phone: 9(387)351-974249 [place] [address] 06-10-2024 15:33-0500 Body weight 64 kg Jeremy Yu MD Work Phone: [facility] 06-10-2024 15:33-0500 Diastolic blood pressure 72 mm[Hg] Jeremy Yu MD Work Phone: [facility] 06-10-2024 15:33-0500 Heart rate 76 /min Jeremy Yu MD Work Phone: [facility] 06-10-2024 15:33-0500 Respiratory rate 16 /min Jeremy Yu MD Work Phone: [facility] 06-10-2024 15:33-0500 SaO2% (BldA) [Mass fraction] 98 % Jeremy Yu MD Work Phone: [facility] 06-10-2024 15:33-0500 Systolic blood pressure 134 mm[Hg] Jeremy Yu MD Work Phone: [facility] 05-30-2024 13:39-0500 Body height 157.5 cm Anay Schuler MD Work Phone: [facility] 05-30-2024 13:39-0500 Body mass index (BMI) [Ratio] 25.4 kg/m2 Anay Schuler MD Work Phone: [facility] 05-30-2024 13:39-0500 Body weight 63 kg Anay Schuler MD Work Phone: [facility] 05-30-2024 13:39-0500 Diastolic blood pressure 60 mm[Hg] Anay Schuler MD Work Phone: [facility] 05-30-2024 13:39-0500 Heart rate 62 /min Anay Schuler MD Work Phone: [facility] 05-30-2024 13:39-0500 Respiratory rate 14 /min Anay Schuler MD Work Phone: [facility] 05-30-2024 13:39-0500 Systolic blood pressure 140 mm[Hg] Anay Schuler MD Work Phone: [facility] 01-11-2024 14:39-0400 Body height 157.5 cm Anay Schuler MD Work Phone: [facility] 01-11-2024 14:39-0400 Body mass index (BMI) [Ratio] 25.79 kg/m2 Anay Schuler MD Work Phone: [facility] 01-11-2024 14:39-0400 Body weight 63.96 kg Anay Schuler MD Work Phone: [facility] 01-11-2024 14:39-0400 Diastolic blood pressure 72 mm[Hg] Anay Schuler MD Work Phone: 4(767)052-546349 [place] [address] 01-11-2024 14:39-0400 Heart rate 61 /min Anay Schuler MD Work Phone: 1(080)310-766649 [place] [address] 01-11-2024 14:39-0400 Respiratory rate 16 /min Anay Schuler MD Work Phone: 0(753)731-664149 [place] [address] 01-11-2024 14:39-0400 Systolic blood pressure 128 mm[Hg] Anay Schuler MD Work Phone: 1(096)670-090849 [place] [address] 10-28-2023 14:05-0400 Body height 157.[address] Anay Schuler Work Phone: 5(445)968-641232 [place] [address] 10-28-2023 14:05-0400 Body mass index (BMI) [Ratio] 26.3 kg/m2 Dr. Anay Schuler Work Phone: 3(618)958-369032 [place] [address] 10-28-2023 14:05-0400 Body weight 65.[address] Anay Schuler Work Phone: 2(449)562-160632 [place] [address] 10-28-2023 14:05-0400 Diastolic blood pressure 94 mm[Hg] Dr. Anay Schuler Work Phone: 7(311)538-168132 [place] [address] 10-28-2023 14:05-0400 Heart rate 54 /min Dr. Anay Schuler Work Phone: 9(622)823-539732 [place] [address] 10-28-2023 14:05-0400 Respiratory rate 18 /min Dr. Anay Schuler Work Phone: 8(235)514-282332 [place] [address] 10-28-2023 14:05-0400 SaO2% (BldA) [Mass fraction] 98 % Dr. Anay Schuler Work Phone: 8(970)050-035416 [place] [address] 10-28-2023 14:05-0400 Systolic blood pressure 176 mm[Hg] Dr. Anay Schuler Work Phone: [facility] 09-28-2023 14:05-0400 Body height 157.5 cm Megha Denbow PA-C Work Phone: [facility] 09-28-2023 14:05-0400 Body temperature 97.59 [degF] Megha Denbow PA-C Work Phone: [facility] 09-28-2023 14:05-0400 Body weight 63.96 kg Megha Denbow PA-C Work Phone: [facility] 09-28-2023 14:05-0400 Diastolic blood pressure 80 mm[Hg] Megha Denbow PA-C Work Phone: [facility] 09-28-2023 14:05-0400 Heart rate 68 /min Megha Denbow PA-C Work Phone: [facility] 09-28-2023 14:05-0400 Respiratory rate 12 /min Megha Denbow PA-C Work Phone: [facility] 09-28-2023 14:05-0400 SaO2% (BldA) [Mass fraction] 99 % Megha Denbow PA-C Work Phone: [facility] 09-28-2023 14:05-0400 Systolic blood pressure 150 mm[Hg] Megha Denbow PA-C Work Phone: [facility] 08-20-2023 14:01-0500 Diastolic blood pressure 84 mm[Hg] Dr. Anay Schuler Work Phone: [facility] 08-20-2023 14:01-0500 Systolic blood pressure 138 mm[Hg] Dr. Anay Schuler Work Phone: [facility] 08-20-2023 13:28-0500 Body height 157.[address] Anay Schuler Work Phone: [facility] 08-20-2023 13:28-0500 Body mass index (BMI) [Ratio] 25.6 kg/m2 Dr. Anay Schuler Work Phone: [facility] 08-20-2023 13:28-0500 Body weight 63.[address] Anay Schuler Work Phone: [facility] 08-20-2023 13:28-0500 Heart rate 57 /min Dr. Anay Schuler Work Phone: [facility] 08-20-2023 13:28-0500 Respiratory rate 18 /min Dr. Anay Schuler Work Phone: [facility] 08-20-2023 13:28-0500 SaO2% (BldA) [Mass fraction] 97 % Dr. Anay Schuler Work Phone: [facility] 08-18-2023 14:04-0500 Diastolic blood pressure 64 mm[Hg] Megha Denbow PA-C Work Phone: [facility] 08-18-2023 14:04-0500 Systolic blood pressure 132 mm[Hg] Megha Denbow PA-C Work Phone: [facility] 08-18-2023 13:02-0500 Body height 157.5 cm Megha Denbow PA-C Work Phone: [facility] 08-18-2023 13:02-0500 Body temperature 96.8 [degF] Megha Denbow PA-C Work Phone: [facility] 08-18-2023 13:02-0500 Body weight 63.05 kg Megha Denbow PA-C Work Phone: [facility] 08-18-2023 13:02-0500 Heart rate 62 /min Megha Denbow PA-C Work Phone: [facility] 08-18-2023 13:02-0500 Respiratory rate 12 /min Megha Denbow PA-C Work Phone: [facility] 08-18-2023 13:02-0500 SaO2% (BldA) [Mass fraction] 100 % Megha Denbow PA-C Work Phone: [facility] 07-16-2023 16:30-0500 Body temperature 98 [degF] Dr. Anay Schuler Work Phone: [phone] [address] 07-16-2023 16:30-0500 Diastolic blood pressure 44 mm[Hg] Dr. Anay Schuler Work Phone: 8(151)674-964432 [place] [address] 07-16-2023 16:30-0500 Heart rate 76 /min Dr. Anay Schuler Work Phone: 7(876)723-213532 [place] [address] 07-16-2023 16:30-0500 Respiratory rate 17 /min Dr. Anay Schuler Work Phone: 4(948)328-836232 [address] [address] 07-16-2023 16:30-0500 SaO2% (BldA) [Mass fraction] 96 % Dr. Anay Schuler Work Phone: 9(483)105-622832 [address] [address] 07-16-2023 16:30-0500 Systolic blood pressure 145 mm[Hg] Dr. Anay Schuler Work Phone: 6(991)391-273632 [address] [address] 07-16-2023 08:21-0500 Inhaled oxygen flow rate 2 L/min Dr. Anay Schuler Work Phone: 8(746)749-787732 [place] [address] 07-13-2023 16:26-0500 Body mass index (BMI) [Ratio] 25.3 kg/m2 Dr. Anay Schuler Work Phone: 7(741)959-904732 [place] [address] 07-13-2023 16:26-0500 Body weight 62.[address] Anay Schuler Work Phone: 7(713)341-296032 [address] [address] 07-13-2023 15:00-0500 Diastolic blood pressure 49 mm[Hg] Dr. Anay Schuler Work Phone: 1(146)221-817732 [address] [address] 07-13-2023 15:00-0500 Heart rate 62 /min Dr. Anay Schuler Work Phone: 6(795)205-939732 [place] [address] 07-13-2023 15:00-0500 Respiratory rate 17 /min Dr. Anay Schuler Work Phone: 5(786)387-968832 [address] [address] 07-13-2023 15:00-0500 SaO2% (BldA) [Mass fraction] 97 % Dr. Anay Schuler Work Phone: 2(426)726-820332 [address] [address] 07-13-2023 15:00-0500 Systolic blood pressure 147 mm[Hg] Dr. Anay Schuler Work Phone: 2(522)037-443332 [address] [address] 07-13-2023 13:07-0500 Inhaled oxygen flow rate 2 L/min Dr. Anay Schuler Work Phone: 7(652)079-086632 [place] [address] 07-13-2023 11:11-0500 Body height 162.[address] Anay Schuler Work Phone: 1(403)595-518232 [address] [address] 07-13-2023 11:11-0500 Body temperature 96.3 [degF] Dr. Anay Schuler Work Phone: 4(216)172-683032 [address] [address] 06-05-2023 10:51-0500 Body mass index (BMI) [Ratio] 25.4 kg/m2 Dr. Anay Schuler Work Phone: 3(313)922-912132 [address] [address] 06-05-2023 10:51-0500 Body temperature 98.8 [degF] Dr. Anay Schuler Work Phone: 7(510)610-577232 [address] [address] 06-05-2023 10:51-0500 Body weight 63.[address] Anay Schuler Work Phone: 5(209)424-683432 [address] [address] 06-05-2023 10:51-0500 Diastolic blood pressure 66 mm[Hg] Dr. Anay Schuler Work Phone: 9(908)097-066932 [address] [address] 06-05-2023 10:51-0500 Heart rate 70 /min Dr. Anay Schuler Work Phone: 1(575)972-122632 [place] [address] 06-05-2023 10:51-0500 Respiratory rate 16 /min Dr. Anay Schuler Work Phone: 3(257)303-967532 [place] [address] 06-05-2023 10:51-0500 SaO2% (BldA) [Mass fraction] 97 % Dr. Anay Schuler Work Phone: 0(697)930-705732 [place] [address] 06-05-2023 10:51-0500 Systolic blood pressure 176 mm[Hg] Dr. Anay Schuler Work Phone: [facility] 06-01-2023 14:33-0500 Diastolic blood pressure 67 mm[Hg] Jolie Marshall DIRECTOR TRANSLATION.CAREER PROFESSIONAL Work Phone: [facility] 06-01-2023 14:33-0500 Heart rate 56 /min Jolie Marshall DIRECTOR TRANSLATION.CAREER PROFESSIONAL Work Phone: [facility] 06-01-2023 14:33-0500 Systolic blood pressure 181 mm[Hg] Jolie Marshall DIRECTOR TRANSLATION.CAREER PROFESSIONAL Work Phone: [facility] 06-01-2023 14:26-0500 Body weight 63.5 kg Jolie Marshall DIRECTOR TRANSLATION.CAREER PROFESSIONAL Work Phone: [facility] 06-01-2023 14:26-0500 Respiratory rate 16 /min Jolie Marshall DIRECTOR TRANSLATION.CAREER PROFESSIONAL Work Phone: [facility] 05-01-2023 13:59-0400 Diastolic blood pressure 74 mm[Hg] Toshia Older DIRECTOR TRANSLATION.BILLING AND ACCOUNTING STAFF ASSISTANT Work Phone: [facility] 05-01-2023 13:59-0400 Heart rate 60 /min Toshia Older DIRECTOR TRANSLATION.BILLING AND ACCOUNTING STAFF ASSISTANT Work Phone: [facility] 05-01-2023 13:59-0400 Systolic blood pressure 172 mm[Hg] Toshia Older DIRECTOR TRANSLATION.BILLING AND ACCOUNTING STAFF ASSISTANT Work Phone: [facility] 05-01-2023 13:58-0400 Body weight 61.69 kg Toshia Older DIRECTOR TRANSLATION.BILLING AND ACCOUNTING STAFF ASSISTANT Work Phone: [facility] 05-01-2023 13:58-0400 Respiratory rate 14 /min Toshia Older DIRECTOR TRANSLATION.BILLING AND ACCOUNTING STAFF ASSISTANT Work Phone: [facility] 04-15-2023 15:55-0400 Diastolic blood pressure 78 mm[Hg] Megha Mahoney PA-C Work Phone: [facility] 04-15-2023 15:55-0400 Systolic blood pressure 200 mm[Hg] Megha Denbow PA-C Work Phone: [facility] 04-15-2023 15:03-0400 Body height 157.5 cm Megha Denbow PA-C Work Phone: [facility] 04-15-2023 15:03-0400 Body temperature 97.2 [degF] Megha Denbow PA-C Work Phone: [facility] 04-15-2023 15:03-0400 Body weight 58.97 kg Megha Denbow PA-C Work Phone: [facility] 04-15-2023 15:03-0400 Heart rate 64 /min Megha Denbow PA-C Work Phone: [facility] 04-15-2023 15:03-0400 Respiratory rate 12 /min Megha Denbow PA-C Work Phone: [facility] 04-15-2023 15:03-0400 SaO2% (BldA) [Mass fraction] 99 % Megha Denbow PA-C Work Phone: [facility] 04-09-2023 12:13-0400 Diastolic blood pressure 72 mm[Hg] Silvio Older DIRECTOR TRANSLATION.BILLING AND ACCOUNTING STAFF ASSISTANT Work Phone: [facility] 04-09-2023 12:13-0400 Systolic blood pressure 189 mm[Hg] Silvio Older DIRECTOR TRANSLATION.BILLING AND ACCOUNTING STAFF ASSISTANT Work Phone: [facility] 04-09-2023 12:03-0400 Body weight 60.78 kg Silvio Older DIRECTOR TRANSLATION.BILLING AND ACCOUNTING STAFF ASSISTANT Work Phone: [facility] 04-09-2023 12:03-0400 Heart rate 60 /min Silvio Older DIRECTOR TRANSLATION.BILLING AND ACCOUNTING STAFF ASSISTANT Work Phone: [facility] 04-09-2023 12:03-0400 Respiratory rate 16 /min Silvio Older DIRECTOR TRANSLATION.BILLING AND ACCOUNTING STAFF ASSISTANT Work Phone: [facility] 04-09-2023 12:03-0400 SaO2% (BldA) [Mass fraction] 99 % Silvio Older DIRECTOR TRANSLATION.BILLING AND ACCOUNTING STAFF ASSISTANT Work Phone: [facility] 01-27-2023 15:24-0400 Body height 157.5 cm Maura Giles MD Work Phone: [facility] 01-27-2023 15:24-0400 Body weight 59.42 kg Maura Giles MD Work Phone: [facility] 01-27-2023 15:24-0400 Diastolic blood pressure 77 mm[Hg] Maura Giles MD Work Phone: [facility] 01-27-2023 15:24-0400 Heart rate 74 /min Maura Giles MD Work Phone: [facility] 01-27-2023 15:24-0400 Respiratory rate 18 /min Maura Giles MD Work Phone: [facility] 01-27-2023 15:24-0400 SaO2% (BldA) [Mass fraction] 99 % Maura Giles MD Work Phone: [facility] 01-27-2023 15:24-0400 Systolic blood pressure 165 mm[Hg] Maura Giles MD Work Phone: [facility] 01-07-2023 13:26-0400 Body height 157.5 cm Silvio Older DIRECTOR TRANSLATION.BILLING AND ACCOUNTING STAFF ASSISTANT Work Phone: [facility] 01-07-2023 13:26-0400 Body temperature 97.81 [degF] Silvio Older DIRECTOR TRANSLATION.BILLING AND ACCOUNTING STAFF ASSISTANT Work Phone: [facility] 01-07-2023 13:26-0400 Body weight 60.33 kg Silvio Older DIRECTOR TRANSLATION.BILLING AND ACCOUNTING STAFF ASSISTANT Work Phone: [facility] 01-07-2023 13:26-0400 Diastolic blood pressure 70 mm[Hg] Silvio Older DIRECTOR TRANSLATION.BILLING AND ACCOUNTING STAFF ASSISTANT Work Phone: [facility] 01-07-2023 13:26-0400 Heart rate 58 /min Silvio Older DIRECTOR TRANSLATION.BILLING AND ACCOUNTING STAFF ASSISTANT Work Phone: [facility] 01-07-2023 13:26-0400 Respiratory rate 12 /min Silvio Older DIRECTOR TRANSLATION.BILLING AND ACCOUNTING STAFF ASSISTANT Work Phone: [facility] 01-07-2023 13:26-0400 SaO2% (BldA) [Mass fraction] 97 % Silvio Older DIRECTOR TRANSLATION.BILLING AND ACCOUNTING STAFF ASSISTANT Work Phone: [facility] 01-07-2023 13:26-0400 Systolic blood pressure 140 mm[Hg] Silvio Older DIRECTOR TRANSLATION.BILLING AND ACCOUNTING STAFF ASSISTANT Work Phone: [facility] 11-19-2022 11:20-0400 Body height 157.[address] Anay Schuler Work Phone: [facility] 11-19-2022 11:20-0400 Body mass index (BMI) [Ratio] 23.9 kg/m2 Dr. Anay Schuler Work Phone: [facility] 11-19-2022 11:20-0400 Body weight 59.[address] Anay Schuler Work Phone: [facility] 11-19-2022 11:20-0400 Diastolic blood pressure 79 mm[Hg] Dr. Anay Schuler Work Phone: 5(740)211-943616 [place] [address] 11-19-2022 11:20-0400 Heart rate 51 /min Dr. Anay Schuler Work Phone: [facility] 11-19-2022 11:20-0400 SaO2% (BldA) [Mass fraction] 98 % Dr. Anay Schuler Work Phone: [facility] 11-19-2022 11:20-0400 Systolic blood pressure 190 mm[Hg] Dr. Anay Schuler Work Phone: [facility] 10-31-2022 15:50-0400 Body temperature 97.6 [degF] Dr. Anay Schuler Work Phone: [facility] 10-31-2022 15:50-0400 Diastolic blood pressure 57 mm[Hg] Dr. Anay Schuler Work Phone: 0(638)924-854816 [place] [address] 10-31-2022 15:50-0400 Heart rate 48 /min Dr. Anay Schuler Work Phone: 8(464)799-086616 [place] [address] 10-31-2022 15:50-0400 Respiratory rate 16 /min Dr. Anay Schuler Work Phone: 5(628)651-856432 [place] [address] 10-31-2022 15:50-0400 SaO2% (BldA) [Mass fraction] 97 % Dr. Anay Schuler Work Phone: 4(748)732-347232 [place] [address] 10-31-2022 15:50-0400 Systolic blood pressure 178 mm[Hg] Dr. Anay Schuler Work Phone: 2(363)037-442432 [address] [address] 10-31-2022 14:53-0400 Body mass index (BMI) [Ratio] 23.8 kg/m2 Dr. Anay Schuler Work Phone: 9(691)290-531732 [place] [address] 10-31-2022 14:53-0400 Body weight [address] Anay Schuler Work Phone: 0(401)069-166632 [place] [address] 09-26-2022 12:56-0400 Body mass index (BMI) [Ratio] 24.3 kg/m2 Dr. Anay Schuler Work Phone: 5(712)383-369032 [place] [address] 09-26-2022 12:56-0400 Body weight 60.[address] Anay Schuler Work Phone: 7(266)559-755532 [place] [address] 09-26-2022 12:56-0400 Diastolic blood pressure 78 mm[Hg] Dr. Anay Schuler Work Phone: 5(021)160-945532 [address] [address] 09-26-2022 12:56-0400 Systolic blood pressure 190 mm[Hg] Dr. Anay Schuler Work Phone: 6(235)512-802932 [place] [address] 09-10-2022 14:49-0400 Diastolic blood pressure 92 mm[Hg] Anay Schuler MD Work Phone: 5(425)698-548849 [place] [address] 09-10-2022 14:49-0400 Systolic blood pressure 160 mm[Hg] Anay Schuler MD Work Phone: 5(989)378-751749 [place] [address] 09-10-2022 13:55-0400 Body temperature 97.5 [degF] Anay Schuler MD Work Phone: [facility] 09-10-2022 13:55-0400 Body weight 60.33 kg Anay Schuler MD Work Phone: [facility] 09-10-2022 13:55-0400 Heart rate 56 /min Anay Schuler MD Work Phone: [facility] 09-10-2022 13:55-0400 Respiratory rate 16 /min Anay Schuler MD Work Phone: [facility] 09-10-2022 13:55-0400 SaO2% (BldA) [Mass fraction] 100 % Anay Schuler MD Work Phone: [facility] 08-13-2022 13:04-0500 Body height 157.[address] Anay Schuler Work Phone: 1(027)825-334716 [place] [address] 08-13-2022 13:04-0500 Body mass index (BMI) [Ratio] 23.6 kg/m2 Dr. Anay Schuler Work Phone: 1(991)166-448616 [place] [address] 08-13-2022 13:04-0500 Body weight 58.[address] Anay Schuler Work Phone: 5(446)180-507932 [address] [address] 08-13-2022 13:04-0500 Diastolic blood pressure 64 mm[Hg] Dr. Aany Schuler Work Phone: 0(730)418-166032 [place] [address] 08-13-2022 13:04-0500 Heart rate 64 /min Dr. Anay Schuler Work Phone: 0(401)352-041632 [place] [address] 08-13-2022 13:04-0500 Respiratory rate 16 /min Dr. Anay Schuler Work Phone: 4(140)154-682232 [address] [address] 08-13-2022 13:04-0500 Systolic blood pressure 164 mm[Hg] Dr. Anay Schuler Work Phone: 9(984)610-621916 [place] [address] 06-06-2022 09:33-0500 Body height 157.[address] Anay Schuler Work Phone: 5(942)516-321216 [place] [address] 06-06-2022 09:33-0500 Body mass index (BMI) [Ratio] 23.4 kg/m2 Dr. Anay Schuler Work Phone: 1(864)626-837232 [place] [address] 06-06-2022 09:33-0500 Body weight 58.[address] Anay Schuler Work Phone: 2(678)141-220932 [place] [address] 06-06-2022 09:33-0500 Diastolic blood pressure 64 mm[Hg] Dr. Anay Schuler Work Phone: 5(492)883-153632 [place] [address] 06-06-2022 09:33-0500 Heart rate 80 /min Dr. Anay Schuler Work Phone: 9(743)434-495132 [place] [address] 06-06-2022 09:33-0500 Respiratory rate 16 /min Dr. Anay Schuler Work Phone: 3(692)294-755032 [place] [address] 06-06-2022 09:33-0500 Systolic blood pressure 148 mm[Hg] Dr. Anay Schuler Work Phone: 3(393)822-168632 [place] [address] 06-04-2022 12:42-0500 Heart rate 86 /min Dr. Anay Schuler Work Phone: 2(700)332-918532 [place] [address] 06-04-2022 12:42-0500 Respiratory rate 16 /min Dr. Anay Schuler Work Phone: 5(188)889-929332 [place] [address] 06-04-2022 12:42-0500 SaO2% (BldA) [Mass fraction] 100 % Dr. Anay Schuler Work Phone: 7(855)402-522132 [place] [address] 06-04-2022 09:42-0500 Body height 157.[address] Anay Schuler Work Phone: 2(512)003-256032 [place] [address] Work Phone: 06-04-2022 09:42-0500 Body mass index (BMI) [Ratio] 51.2 kg/m2 Dr. Anay Schuler Work Phone: 8(712)151-081632 [place] [address] 06-04-2022 09:42-0500 Body temperature 97.2 [degF] Dr. Anay Schuler Work Phone: 4(512)435-521132 [place] [address] 06-04-2022 09:42-0500 Body weight 127.[address] Anay Schuler Work Phone: 3(996)663-764232 [place] [address] 06-04-2022 09:42-0500 Diastolic blood pressure 93 mm[Hg] Dr. Anay Schuler Work Phone: 1(539)929-170132 [place] [address] 06-04-2022 09:42-0500 Systolic blood pressure 140 mm[Hg] Dr. Anay Schuler Work Phone: 5(120)115-711832 [place] [address] 05-21-2022 15:02-0500 Body mass index (BMI) [Ratio] 23.3 kg/m2 Dr. Anay Schuler Work Phone: 1(572)241-957732 [place] [address] 05-21-2022 15:02-0500 Body weight 58.[address] Anay Schuler Work Phone: 4(430)961-353132 [address] [address] 05-21-2022 15:02-0500 Diastolic blood pressure 88 mm[Hg] Dr. Anay Schuler Work Phone: 5(360)919-869032 [place] [address] 05-21-2022 15:02-0500 Heart rate 60 /min Dr. Aany Schuler Work Phone: 8(119)539-950532 [place] [address] 05-21-2022 15:02-0500 Respiratory rate 18 /min Dr. Anay Schuler Work Phone: 1(304)113-190932 [place] [address] 05-21-2022 15:02-0500 SaO2% (BldA) [Mass fraction] 99 % Dr. Anay Schuler Work Phone: 2(734)261-606732 [place] [address] 05-21-2022 15:02-0500 Systolic blood pressure 178 mm[Hg] Dr. Anay Schuler Work Phone: 3(536)058-407932 [place] [address] 05-07-2022 12:55-0500 Body height 157.5 cm Anay Schuler MD Work Phone: 5(682)882-747049 [place] [address] 05-07-2022 12:55-0500 Body weight 56.7 kg Anay Schuler MD Work Phone: 0(932)180-469249 [place] [address] 05-07-2022 12:55-0500 Diastolic blood pressure 76 mm[Hg] Anay Schuler MD Work Phone: [facility] 05-07-2022 12:55-0500 Heart rate 69 /min Anay Schuler MD Work Phone: [facility] 05-07-2022 12:55-0500 Respiratory rate 12 /min Anay Schuler MD Work Phone: [facility] 05-07-2022 12:55-0500 SaO2% (BldA) [Mass fraction] 99 % Anay Schuler MD Work Phone: [facility] 05-07-2022 12:55-0500 Systolic blood pressure 122 mm[Hg] Anay Schuler MD Work Phone: [facility] 05-05-2022 16:49-0500 Body temperature 97.9 [degF] Dr. Anay Schuler Work Phone: [facility] 05-05-2022 16:49-0500 Diastolic blood pressure 46 mm[Hg] Dr. Anay Schuler Work Phone: 0(616)244-278794 [address] 05-05-2022 16:49-0500 Heart rate 57 /min Dr. Anay Schuler Work Phone: 6(212)560-461232 [place] [address] 05-05-2022 16:49-0500 Respiratory rate 14 /min Dr. Anay Schuler Work Phone: 9(216)382-072316 [place] [address] 05-05-2022 16:49-0500 SaO2% (BldA) [Mass fraction] 99 % Dr. Anay Schuler Work Phone: 0(228)398-372916 [place] [address] 05-05-2022 16:49-0500 Systolic blood pressure 155 mm[Hg] Dr. Anay Schuler Work Phone: 8(013)204-804194 [address] 05-05-2022 13:52-0500 Body height 158.[address] Anay Schuler Work Phone: [facility] Work Phone: 05-05-2022 13:52-0500 Body weight 59.[address] Anay Schuler Work Phone: [facility] 05-05-2022 11:24-0500 SaO2% (BldA) [Mass fraction] 98 % Dr. Anay Schuler Work Phone: [facility] Work Phone: 05-05-2022 11:11-0500 Heart rate 57 /min Dr. Anay Schuler Work Phone: [facility] Work Phone: 05-05-2022 09:10-0500 Body temperature 97.9 [degF] Dr. Anay Schuler Work Phone: [facility] Work Phone: 05-05-2022 09:10-0500 Diastolic blood pressure 46 mm[Hg] Dr. Anay Schuler Work Phone: [facility] Work Phone: 05-05-2022 09:10-0500 Respiratory rate 14 /min Dr. Anay Schuler Work Phone: [facility] Work Phone: 05-05-2022 09:10-0500 Systolic blood pressure 155 mm[Hg] Dr. Anay Schuler Work Phone: [facility] Work Phone: 05-01-2022 21:54-0400 Body mass index (BMI) [Ratio] 23.6 kg/m2 Dr. Anay Schuler Work Phone: [facility] 05-01-2022 21:17-0400 Body temperature 98.1 [degF] Dr. Anay Schuler Work Phone: [facility] Work Phone: 05-01-2022 21:17-0400 Diastolic blood pressure 86 mm[Hg] Dr. Anay Schuler Work Phone: [facility] Work Phone: 05-01-2022 21:17-0400 Heart rate 58 /min Dr. Anay Schuler Work Phone: [facility] Work Phone: 05-01-2022 21:17-0400 Respiratory rate 16 /min Dr. Anay Schuler Work Phone: [facility] Work Phone: 05-01-2022 21:17-0400 SaO2% (BldA) [Mass fraction] 98 % Dr. Anay Schuler Work Phone: [facility] Work Phone: 05-01-2022 21:17-0400 Systolic blood pressure 140 mm[Hg] Dr. Anay Schuler Work Phone: [facility] Work Phone: 05-01-2022 18:52-0400 Inhaled oxygen flow rate 3 L/min Dr. Anay Schuler Work Phone: [facility] 05-01-2022 16:58-0400 Body height 157.[address] Anay Schuler Work Phone: [facility] Work Phone: 05-01-2022 16:58-0400 Body mass index (BMI) [Ratio] 24.3 kg/m2 Dr. Anay Schuler Work Phone: [facility] Work Phone: 05-01-2022 16:58-0400 Body weight 60.[address] Anay Schuler Work Phone: [facility] Work Phone: 05-01-2022 12:57-0400 Body mass index (BMI) [Ratio] 24.3 kg/m2 Dr. Aany Schuler Work Phone: [facility] 05-01-2022 12:57-0400 Body weight 60.[address] Anay Schuler Work Phone: [facility] 05-01-2022 12:57-0400 Diastolic blood pressure 67 mm[Hg] Dr. Anay Schuler Work Phone: 1(798)911-985732 [place] [address] 05-01-2022 12:57-0400 Heart rate 74 /min Dr. Anay Schuler Work Phone: 2(909)165-160532 [place] [address] 05-01-2022 12:57-0400 Respiratory rate 18 /min Dr. Anay Schuler Work Phone: 3(410)546-785132 [place] [address] 05-01-2022 12:57-0400 SaO2% (BldA) [Mass fraction] 97 % Dr. Anay Schuler Work Phone: 5(649)500-646732 [place] [address] 05-01-2022 12:57-0400 Systolic blood pressure 100 mm[Hg] Dr. Anay Schuler Work Phone: 8(865)051-366032 [place] [address] 04-30-2022 11:24-0400 Body mass index (BMI) [Ratio] 24.3 kg/m2 Dr. Anay Schuler Work Phone: 4(284)657-451632 [place] [address] 04-30-2022 11:24-0400 Body weight 60.[address] Anay Schuler Work Phone: 0(109)341-341132 [place] [address] 04-30-2022 11:24-0400 Diastolic blood pressure 69 mm[Hg] Dr. Anay Schuler Work Phone: 8(890)080-495132 [place] [address] 04-30-2022 11:24-0400 Heart rate 65 /min Dr. Anay Schuler Work Phone: 0(404)336-846732 [place] [address] 04-30-2022 11:24-0400 SaO2% (BldA) [Mass fraction] 96 % Dr. Anay Schuler Work Phone: 2(727)105-901332 [place] [address] 04-30-2022 11:24-0400 Systolic blood pressure 121 mm[Hg] Dr. Anay Schuler Work Phone: 7(702)316-334032 [place] [address] 04-24-2022 16:41-0400 Diastolic blood pressure 57 mm[Hg] Dr. Anay Schuler Work Phone: 9(847)375-711332 [place] [address] 04-24-2022 16:41-0400 Heart rate 78 /min Dr. Anay Schuler Work Phone: [facility] 04-24-2022 16:41-0400 Respiratory rate 16 /min Dr. Anay Schuler Work Phone: [facility] 04-24-2022 16:41-0400 SaO2% (BldA) [Mass fraction] 97 % Dr. Anay Schuler Work Phone: 0(917)088-395316 [place] [address] 04-24-2022 16:41-0400 Systolic blood pressure 152 mm[Hg] Dr. Anay Schuler Work Phone: 3(142)264-137516 [place] [address] 04-24-2022 14:36-0400 Body height 157.[address] Anay Schuler Work Phone: [facility] Work Phone: 04-24-2022 14:36-0400 Body mass index (BMI) [Ratio] 23.9 kg/m2 Dr. Anay Schuler Work Phone: 7(071)397-980816 [place] [address] 04-24-2022 14:36-0400 Body temperature 98.2 [degF] Dr. Anay Schuler Work Phone: 2(515)182-662816 [place] [address] 04-24-2022 14:36-0400 Body weight 59.[address] Anay Schuler Work Phone: [facility] 04-21-2022 15:21-0400 Diastolic blood pressure 76 mm[Hg] Anay Schuler MD Work Phone: [facility] 04-21-2022 15:21-0400 Systolic blood pressure 130 mm[Hg] Anay Schuler MD Work Phone: [facility] 04-21-2022 14:33-0400 Body height 157.5 cm Anay Schuler MD Work Phone: [facility] 04-21-2022 14:33-0400 Body temperature 98.6 [degF] Anay Schuler MD Work Phone: [facility] 04-21-2022 14:33-0400 Body weight 59.42 kg Anay Schuler MD Work Phone: [facility] 04-21-2022 14:33-0400 Heart rate 89 /min Anay Schuler MD Work Phone: [facility] 04-21-2022 14:33-0400 Respiratory rate 12 /min Anay Schuler MD Work Phone: [facility] 04-21-2022 14:33-0400 SaO2% (BldA) [Mass fraction] 98 % Anay Schuler MD Work Phone: [facility] 04-18-2022 12:57-0400 Body mass index (BMI) [Ratio] 23.9 kg/m2 Dr. Anay Schuler Work Phone: 9(115)576-912216 [place] [address] 04-18-2022 12:57-0400 Body weight 59.[address] Anay Schuler Work Phone: 1(936)327-543432 [place] [address] 04-18-2022 12:57-0400 Diastolic blood pressure 70 mm[Hg] Dr. Anay Schuler Work Phone: 2(752)583-151416 [place] [address] 04-18-2022 12:57-0400 Heart rate 75 /min Dr. Anay Schuler Work Phone: 5(879)534-302832 [place] [address] 04-18-2022 12:57-0400 Respiratory rate 18 /min Dr. Anay Schuler Work Phone: 1([phone])255-961616 [place] [address] 04-18-2022 12:57-0400 SaO2% (BldA) [Mass fraction] 96 % Dr. Anay Schuler Work Phone: 4(775)063-263316 [place] [address] 04-18-2022 12:57-0400 Systolic blood pressure 137 mm[Hg] Dr. Anay Schuler Work Phone: 4(876)779-518416 [place] [address] 04-09-2022 17:05-0400 Body height 157.5 cm Anay Schuler MD Work Phone: [facility] 04-09-2022 17:05-0400 Body temperature 97.39 [degF] Anay Schuler MD Work Phone: [facility] 04-09-2022 17:05-0400 Body weight 61.24 kg Anay Schuler MD Work Phone: [facility] 04-09-2022 17:05-0400 Diastolic blood pressure 52 mm[Hg] Anay Schuler MD Work Phone: [facility] 04-09-2022 17:05-0400 Heart rate 90 /min Anay Schuler MD Work Phone: [facility] 04-09-2022 17:05-0400 Respiratory rate 12 /min Anay Schuler MD Work Phone: [facility] 04-09-2022 17:05-0400 SaO2% (BldA) [Mass fraction] 98 % Anay Schuler MD Work Phone: [facility] 04-09-2022 17:05-0400 Systolic blood pressure 90 mm[Hg] Anay Schuler MD Work Phone: [facility] 04-04-2022 11:02-0400 Body height 157.[address] Anay Schuler Work Phone: [facility] Work Phone: 04-04-2022 11:02-0400 Body mass index (BMI) [Ratio] 24.3 kg/m2 Dr. Anay Schuler Work Phone: [facility] 04-04-2022 11:02-0400 Body temperature 96.9 [degF] Dr. Anay Schuler Work Phone: 1(698)356-028616 [place] [address] 04-04-2022 11:02-0400 Body weight 60.[address] Anay Schuler Work Phone: 9(850)601-610216 [place] [address] 04-04-2022 11:02-0400 Diastolic blood pressure 91 mm[Hg] Dr. Anay Schuler Work Phone: 3(230)238-700516 [place] [address] 04-04-2022 11:02-0400 Heart rate 67 /min Dr. Anay Schuler Work Phone: 7(829)185-388732 [place] [address] 04-04-2022 11:02-0400 Respiratory rate 16 /min Dr. Anay Schuler Work Phone: [facility] 04-04-2022 11:02-0400 SaO2% (BldA) [Mass fraction] 99 % Dr. Anay Schuler Work Phone: [facility] 04-04-2022 11:02-0400 Systolic blood pressure 130 mm[Hg] Dr. Anay Schuler Work Phone: [facility] 04-02-2022 15:23-0400 Body weight 59.88 kg Silvio Older DIRECTOR TRANSLATION.BILLING AND ACCOUNTING STAFF ASSISTANT Work Phone: [facility] 04-02-2022 15:23-0400 Diastolic blood pressure 78 mm[Hg] Silvio Older DIRECTOR TRANSLATION.BILLING AND ACCOUNTING STAFF ASSISTANT Work Phone: [facility] 04-02-2022 15:23-0400 Heart rate 90 /min Silvio Older DIRECTOR TRANSLATION.BILLING AND ACCOUNTING STAFF ASSISTANT Work Phone: [facility] 04-02-2022 15:23-0400 Respiratory rate 16 /min Silvio Older DIRECTOR TRANSLATION.BILLING AND ACCOUNTING STAFF ASSISTANT Work Phone: [facility] 04-02-2022 15:23-0400 SaO2% (BldA) [Mass fraction] 99 % Silvio Older DIRECTOR TRANSLATION.BILLING AND ACCOUNTING STAFF ASSISTANT Work Phone: [facility] 04-02-2022 15:23-0400 Systolic blood pressure 122 mm[Hg] Silvio Older DIRECTOR TRANSLATION.BILLING AND ACCOUNTING STAFF ASSISTANT Work Phone: [facility] 03-25-2022 14:50-0400 Body height 157.[address] Anay Schuler Work Phone: [facility] Work Phone: 03-25-2022 14:50-0400 Body mass index (BMI) [Ratio] 25.2 kg/m2 Dr. Anay Schuler Work Phone: [facility] 03-25-2022 14:50-0400 Body weight 62.[address] Anay Schuler Work Phone: [facility] 03-25-2022 14:50-0400 Diastolic blood pressure 62 mm[Hg] Dr. Anay Schuler Work Phone: [facility] 03-25-2022 14:50-0400 Heart rate 104 /min Dr. Anay Schuler Work Phone: [facility] 03-25-2022 14:50-0400 Respiratory rate 16 /min Dr. Anay Schuler Work Phone: [facility] 03-25-2022 14:50-0400 Systolic blood pressure 122 mm[Hg] Dr. Anay Schuler Work Phone: [facility] 03-20-2022 14:44-0400 Body weight 60.33 kg Silvio Older DIRECTOR TRANSLATION.BILLING AND ACCOUNTING STAFF ASSISTANT Work Phone: [facility] 03-20-2022 14:44-0400 Diastolic blood pressure 70 mm[Hg] Silvio Older DIRECTOR TRANSLATION.BILLING AND ACCOUNTING STAFF ASSISTANT Work Phone: [facility] 03-20-2022 14:44-0400 Heart rate 68 /min Silvio Older DIRECTOR TRANSLATION.BILLING AND ACCOUNTING STAFF ASSISTANT Work Phone: [facility] 03-20-2022 14:44-0400 Respiratory rate 16 /min Silvio Older DIRECTOR TRANSLATION.BILLING AND ACCOUNTING STAFF ASSISTANT Work Phone: [facility] 03-20-2022 14:44-0400 Systolic blood pressure 112 mm[Hg] Silvio Older DIRECTOR TRANSLATION.BILLING AND ACCOUNTING STAFF ASSISTANT Work Phone: [facility] 03-10-2022 15:52-0400 Body weight 60.33 kg Anay Schuler MD Work Phone: [facility] 03-10-2022 15:52-0400 Diastolic blood pressure 58 mm[Hg] Anay Schuler MD Work Phone: [facility] 03-10-2022 15:52-0400 Heart rate 74 /min Anay Schuler MD Work Phone: [facility] 03-10-2022 15:52-0400 Respiratory rate 14 /min Anay Schuler MD Work Phone: [facility] 03-10-2022 15:52-0400 SaO2% (BldA) [Mass fraction] 99 % Anay Schuler MD Work Phone: [facility] 03-10-2022 15:52-0400 Systolic blood pressure 92 mm[Hg] Anay Schuler MD Work Phone: [facility] 02-23-2022 09:00-0400 Body temperature 97.3 [degF] Dr. Anay Schuler Work Phone: [facility] Work Phone: 02-23-2022 09:00-0400 Diastolic blood pressure 62 mm[Hg] Dr. Anay Schuler Work Phone: [facility] Work Phone: 02-23-2022 09:00-0400 Heart rate 79 /min Dr. Anay Schuler Work Phone: [facility] Work Phone: 02-23-2022 09:00-0400 Respiratory rate 18 /min Dr. Anay Schuler Work Phone: [facility] Work Phone: 02-23-2022 09:00-0400 SaO2% (BldA) [Mass fraction] 98 % Dr. Anay Schuler Work Phone: [facility] Work Phone: 02-23-2022 09:00-0400 Systolic blood pressure 97 mm[Hg] Dr. Anay Schuler Work Phone: [facility] Work Phone: 02-22-2022 00:39-0400 Body height 157.[address] Anay Schuler Work Phone: [facility] Work Phone: 02-22-2022 00:39-0400 Body mass index (BMI) [Ratio] 22.8 kg/m2 Dr. Anay Schuler Work Phone: [facility] Work Phone: 02-22-2022 00:39-0400 Body weight 56.[address] Anay Schuler Work Phone: [facility] Work Phone: 02-21-2022 19:00-0400 Body temperature 97.6 [degF] Dr. Anay Schuler Work Phone: [facility] Work Phone: 02-21-2022 19:00-0400 Diastolic blood pressure 74 mm[Hg] Dr. Anay Schuler Work Phone: [facility] Work Phone: 02-21-2022 19:00-0400 Heart rate 71 /min Dr. Anay Schuler Work Phone: [facility] Work Phone: 02-21-2022 19:00-0400 Respiratory rate 18 /min Dr. Anay Schuler Work Phone: [facility] Work Phone: 02-21-2022 19:00-0400 Systolic blood pressure 126 mm[Hg] Dr. Anay Schuler Work Phone: [facility] Work Phone: 02-21-2022 18:55-0400 Body height 157.[address] Anay Schuler Work Phone: [facility] Work Phone: 02-21-2022 18:55-0400 Body mass index (BMI) [Ratio] 23.2 kg/m2 Dr. Anay Schuler Work Phone: [facility] Work Phone: 02-21-2022 18:55-0400 Body weight 57.[address] Anay Schuler Work Phone: [facility] Work Phone: 02-21-2022 14:40-0400 Body height 157.5 cm Aany Schuler MD Work Phone: [facility] 02-21-2022 14:40-0400 Body temperature 96.4 [degF] Anay Schuler MD Work Phone: [facility] 02-21-2022 14:40-0400 Body weight 57.15 kg Anay Schuler MD Work Phone: [facility] 02-21-2022 14:40-0400 Diastolic blood pressure 50 mm[Hg] Anay Schuler MD Work Phone: [facility] 02-21-2022 14:40-0400 Heart rate 60 /min Anay Schuler MD Work Phone: [facility] 02-21-2022 14:40-0400 Respiratory rate 12 /min Anay Schuler MD Work Phone: [facility] 02-21-2022 14:40-0400 SaO2% (BldA) [Mass fraction] 99 % Dr. Anay Schuler Work Phone: [facility] Work Phone: 02-21-2022 14:40-0400 Systolic blood pressure 92 mm[Hg] Anay Schuler MD Work Phone: [facility] 02-13-2022 11:30-0400 Body height 157.[address] Anay Schuler Work Phone: [facility] Work Phone: 02-13-2022 11:30-0400 Body mass index (BMI) [Ratio] 24.5 kg/m2 Dr. Anay Schuler Work Phone: [facility] Work Phone: 02-13-2022 11:30-0400 Body weight 60.[address] Anay Schuler Work Phone: [facility] Work Phone: 02-13-2022 11:30-0400 Diastolic blood pressure 72 mm[Hg] Dr. Anay Schuler Work Phone: [facility] Work Phone: 02-13-2022 11:30-0400 Heart rate 52 /min Dr. Anay Schuler Work Phone: [facility] Work Phone: 02-13-2022 11:30-0400 SaO2% (BldA) [Mass fraction] 98 % Dr. Anay Schuler Work Phone: [facility] Work Phone: 02-13-2022 11:30-0400 Systolic blood pressure 146 mm[Hg] Dr. Anay Schuler Work Phone: [facility] Work Phone: 12-10-2021 13:00-0400 Body height 159 cm Anay Schuler MD Work Phone: [facility] 12-10-2021 13:00-0400 Body weight 60.78 kg Anay Schuler MD Work Phone: [facility] 12-10-2021 13:00-0400 Diastolic blood pressure 62 mm[Hg] Anay Schuler MD Work Phone: [facility] 12-10-2021 13:00-0400 Heart rate 56 /min Anay Schuler MD Work Phone: [facility] 12-10-2021 13:00-0400 Respiratory rate 16 /min Anay Schuler MD Work Phone: [facility] 12-10-2021 13:00-0400 Systolic blood pressure 128 mm[Hg] Anay Schuler MD Work Phone: [facility] Encounters Encounter Date Encounter Type Care Provider Facility Start: 03-01-2025 End: 03-01-[address] Anay Schuler MD Work Phone: -[facility] Start: 03-01-2025 End: 03-01-[address] Dacia Sewell DO -[facility] Start: 03-01-2025 End: 03-01-2025 ambulatory Dacia Sewell Facility:[facility] Start: 02-22-2025 End: 02-22-[address] Jessica Adler MD -[facility] Work Phone: Start: 02-22-2025 End: 02-22-[address] Anay Schuler MD Work Phone: -[facility] Start: 02-02-2025 Non-patient / Non-visit Dr. Sonya FERNANDEZ -[facility] Start: 02-02-2025 End: 02-02-[address] Anay Schuler MD Work Phone: -Cardiovascular Services Start: 02-02-2025 End: 02-02-[address] Jake Kingston MD -Cardiovascular Services Work Phone: Start: 02-02-2025 End: 02-02-2025 Dr. Fredis Marie MD -[facility] Start: 02-02-2025 End: 02-02-2025 ambulatory Jake Kingston Facility:[facility] Start: 01-09-2025 End: 01-09-[address] Jake Kingston MD -[facility] Work Phone: Start: 01-09-2025 End: 01-09-2025 Dr. Jake Kingston MD -[facility] Work Phone: Start: 01-09-2025 End: 01-09-[address] Anay Schuler MD Work Phone: -[facility] Start: 01-03-2025 End: 01-03-2025 Office outpatient visit 25 minutes Anay Schuler MD Work Phone: [facility] [place] Comment on above: Hypothyroidism, unsp ecified type (Primary Dx); Essential hypertension; Iron deficiency; Anemia, unspecified type; Persistent atrial fibrillation (HCC) Start: 01-03-2025 End: 01-03-2025 ambulatory ANAY SCHULER Facility:[facility] Start: 01-02-2025 End: 01-02-2025 Refill Anay Schuler MD Work Phone: [facility] [place] Comment on above: Refill Request Start: 12-27-2024 Non-patient / Non-visit Dr. Addy Adler MD -[facility] Work Phone: Start: 12-27-2024 Dr. Jessica najera MD -[facility] Work Phone: Start: 12-21-2024 End: 12-21-2024 Office outpatient visit 25 minutes Silvio Drake APRN.BILLING AND ACCOUNTING STAFF ASSISTANT Work Phone: [facility] [place] Comment on above: Acute cough (Primary Dx); Dyspnea, unspecified type; Abnormal breath sounds; Essential hypertension; Hypertensive kidney disease with stage 3b chronic kidney disease (HCC); Nausea Start: 12-21-2024 End: 12-21-2024 ambulatory [facility] Facility:[facility] Start: 12-16-2024 End: 12-17-2024 Follow-up encounter Silvio Drake APRN.BILLING AND ACCOUNTING STAFF ASSISTANT Work Phone: [facility] [place] Start: 12-15-2024 End: 12-16-2024 Follow-up encounter Anay Schuler MD Work Phone: [facility] [place] Comment on above: Results Start: 12-12-2024 End: 12-12-2024 Subsequent hospital visit by physician Xr [facility] [place] Work Phone: Radiology Comment on above: Acute cough [R05.1] Start: 12-12-2024 End: 12-12-2024 Office outpatient visit 25 minutes Silvio Drake APRN.BILLING AND ACCOUNTING STAFF ASSISTANT Work Phone: [facility] [place] Comment on above: Acute cough (Primary Dx); Dyspnea, unspecified type; Abnormal breath sounds; Permanent atrial fibrillation (HCC); Essential hypertension; Nausea; Medication management Start: 12-12-2024 End: 12-12-2024 [facility] Facility:[facility] Start: 12-02-2024 End: 12-02-2024 Patient Outreach Dacia Pitt RN [employer] [facility] Comment on above: Weekly phone contact (Recurring) for Transitional Care Management Start: 2024 End: 12-01-2024 Refill Anay Schuler MD Work Phone: [facility] [place] Comment on above: Refill Request Orders Start: 11-28-2024 End: 11-28-2024 Office outpatient visit 25 minutes Anay Schuler MD Work Phone: [facility] [place] Comment on above: Anemia, unspecified type (Primary Dx); Hypertensive kidney disease with stage 3b chronic kidney disease (HCC); Vitamin B12 deficiency Start: 11-28-2024 End: 11-28-2024 ambulatory ANAY SCHULER Facility:[facility] Start: 11-25-2024 End: 11-25-2024 Patient encounter procedure Ning KEENE -[facility] Work Phone: Start: 11-25-2024 End: 11-25-2024 Ning KEENE [place] Work Phone: Start: 11-25-2024 End: 11-25-[address] Anay Schuler MD Work Phone: [facility] Work Phone: Comment on above: Weekly phone contact (Recurring) for Transitional Care Management Start: 11-23-2024 End: 11-23-2024 ambulatory Laly Long RN Work Phone: [employer] [employer] [facility] Comment on above: ACSebastien DALTON RN ( Chart review review per request of payor ) Start: 11-19-2024 End: 11-19-2024 Dr. Beto Keene DO -Emergency Department Work Phone: Start: 11-19-2024 End: 11-19-2024 Emergency department patient visit Dr. Beto Keene DO -Emergency Department Work Phone: Start: 11-15-2024 End: 11-15-[address] Fredis Marie MD -[facility] Work Phone: Start: 11-15-2024 End: 11-15-2024 Dr. Fredis Marie MD -[facility] Work Phone: Start: 11-15-2024 End: 11-15-[address] 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 Anay Schuler MD Work Phone: [facility] Work Phone: Comment on above: Transition Of Care W eekly phone contact (Recurring) for Transitional Care Management Start: 11-08-2024 End: 11-09-2024 Telephone encounter Anay Schuler MD Work Phone: [facility] [place] Comment on above: PT plan of care Start: 11-08-2024 End: 11-08-[address] Terry Basilio MD -[facility] Work Phone: Start: 11-08-2024 End: 11-08-2024 Dr. Terry Basilio MD -[facility] Work Phone: Start: 11-08-2024 End: 11-08-[address] Anay Schuler MD Work Phone: [facility] Work Phone: Start: 11-08-2024 End: 11-08-[address] Anay Schuler MD Work Phone: [facility] Work Phone: Start: 11-08-2024 End: 11-08-[address] Jake Kingston MD -Laboratory, [place] Work Phone: Start: 11-08-2024 End: 11-08-2024 Dr. Jake Kingston MD -Laboratory [place] Work Phone: Start: 11-07-2024 End: 11-08-2024 ambulatory Chacortatommy Robledo MA [facility] Start: 11-07-2024 End: 11-07-2024 Patient encounter [facility] Comment on above: Population Health Na vigation Outreach ([facility]) Start: 11-07-2024 End: 11-10-2024 Telephone encounter Anay Schuler MD Work Phone: [facility] [place] Comment on above: [facility] Start: 11-04-2024 End: 11-04-2024 Patient Outreach Dacia Pitt master control [employer] Comment on above: Initial phone contac t for Transitional Care Management Start: 11-03-2024 End: 11-04-2024 Telephone encounter Anay Schuler MD Work Phone: [facility] [place] Comment on above: Orders Start: 11-03-2024 Non-patient / Non-visit Dr. Shyann Trevizo MD -[facility] Work Phone: Start: 11-03-2024 Dr. Rory Dumont and [facility] Work Phone: Start: 11-03-2024 Non-patient / Non-visit Dr. Estefani Kingston MD -[facility] Start: 11-03-2024 Dr. Jake ye MD -[facility] Start: 11-02-2024 Non-patient / Non-visit Dr. Shyann Trevizo MD [facility] Work Phone: Start: 11-02-2024 Dr. Rory Dumont and [facility] Work Phone: Start: 11-02-2024 Non-patient / Non-visit Dr. Estefani Kingston MD [facility] Start: 11-02-2024 Dr. Jake ye MD [facility] Start: 11-01-2024 Non-patient / Non-visit Dr. Shyann Trevizo MD [facility] Work Phone: Start: 11-01-2024 Dr. Rory Dumont and [facility] Work Phone: Start: 10-31-2024 [facility] Start: 10-31-2024 Non-patient / Non-visit Dr. Talia mendenhall MD [facility] Start: 10-31-2024 Dr. Talai David MD [facility] Start: 10-31-2024 Non-patient / Non-visit Dr. Estefani Kingston MD [facility] Start: 10-31-2024 Dr. Jake ye MD [facility] Start: 10-31-2024 Non-patient / Non-visit Dr. Shyann Trevizo MD [facility] Work Phone: Start: 10-31-2024 Dr. Rory Dum[facility] Work Phone: Start: 10-30-2024 [facility] Start: 10-30-2024 End: 11-03-2024 Evaluation and management of inpatient Dr. Rory Trevizo MD -Progressive Care Unit Work Phone: Start: 10-30-2024 End: 11-03-2024 Dr. Rory Trevizo MD -[facility] Care [facility] Work Phone: Start: 10-28-2024 End: 10-28-2024 Patient Outreach Dacia Pitt RN [employer] [facility] Comment on above: Weekly phone contact (Recurring) for Transitional Care Management Start: 10-27-2024 Non-patient / Non-visit Dr. Estefani Kingston MD [facility] Work Phone: Start: 10-27-2024 End: 10-27-[address] Anay Schuler MD Work Phone: [facility] Work Phone: Start: 10-27-2024 End: 10-27-2024 Patient encounter procedure Faustina Hernandez PA -Pulmonary Services/Neurology Work Phone: Start: 10-27-2024 End: 10-27-2024 Faustina Hernandez PA -Pulmonary Services/Neurology Work Phone: Start: 10-27-2024 End: 10-27-2024 ambulatory Faustina MCCANN Facility:[facility] Start: 10-24-2024 End: 10-24-2024 Patient encounter procedure Ning Spencer ENVIRONMENTAL ISSUES INSTRUCTOR-C -[facility] Work Phone: Start: 10-24-2024 End: 10-24-2024 Ning Spencer ENVIRONMENTAL ISSUES INSTRUCTOR-C -[facility] Work Phone: Start: 10-24-2024 End: 10-24-2024 ambulatory Ning Spencer NP Facility:[facility] Start: 10-24-2024 End: 10-24-2024 ambulatory [facility] Facility:[facility] Start: 10-17-2024 End: 10-17-2024 Patient encounter procedure Silvio Drake APRN.CNP Work Phone: [facility] [place] Comment on above: Nausea (Primary Dx); Other fatigue; Ecchymosis of left eye, initial encounter; Paroxysmal atrial fibrillation (HCC) Start: 10-17-2024 End: 10-17-2024 ambulatory [facility] Facility:[facility] Start: 10-14-2024 End: 10-14-2024 Patient Outreach Dacia Pitt master control [employer] Comment on above: Initial phone contac t for Transitional Care Management Start: 10-13-2024 Non-patient / Non-visit Dr. Mary Cain MD -[facility] Work Phone: Start: 10-13-2024 Dr. Nirav Cain MD [facility] Work Phone: Start: 10-13-2024 Non-patient / Non-visit Dr. Estefani Kingston MD [facility] Start: 10-13-2024 Dr. Jake ye MD [facility] Start: 10-12-2024 Non-patient / Non-visit Dr. Mary Cain MD [facility] Work Phone: Start: 10-12-2024 Dr. Nirav Cain MD -[facility] Work Phone: Start: 10-12-2024 [facility] Start: 10-12-2024 Non-patient / Non-visit Dr. Hassan [facility] Start: 10-12-2024 Dr. Fredis Marie [facility] Start: 10-12-2024 Non-patient / Non-visit Dr. Estefani Kingston MD [facility] Start: 10-12-2024 Dr. Jake ye MD [facility] Start: 10-11-2024 Non-patient / Non-visit Dr. Estefani Kingston MD [facility] Start: 10-11-2024 Dr. Jake ye MD [facility] Start: 10-11-2024 End: 10-13-2024 Evaluation and management of inpatient Dr. Inocencia Long MD -Progressive Care Unit Work Phone: Start: 10-11-2024 [facility] Start: 10-11-2024 Non-patient / Non-visit Dr. Hilary Long MD -[facility] Work Phone: Start: 10-11-2024 End: 10-13-2024 Dr. Nirav Cian MD -Progressive Care Unit Work Phone: Start: 10-08-2024 End: 10-10-2024 Follow-up encounter Michael Sullivan APRN.DARSHAN Work Phone: [facility] Comment on above: Results Start: 10-08-2024 End: 10-08-2024 ambulatory Anay Schuler MD Work Phone: [facility] [place] Comment on above: Patient Question (? Nauseous from RX?) Start: 10-08-2024 End: 10-08-2024 Patient encounter procedure Michael Sullivan APRN.BILLING AND ACCOUNTING STAFF ASSISTANT Work Phone: [facility] Comment on above: Dysuria (Primary Dx) Start: 10-07-2024 End: 10-07-2024 Telephone encounter Anay Schuler MD Work Phone: [facility] Comment on above: UTI Start: 09-28-2024 End: 09-28-2024 ambulatory Anay Schuler MD Work Phone: [facility] Start: 09-28-2024 End: 11-28-2024 Follow-up encounter Silvio Drake APRN.BILLING AND ACCOUNTING STAFF ASSISTANT Work Phone: [facility] [place] Start: 09-28-2024 End: 09-28-2024 Patient encounter procedure Anay Schuler MD Work Phone: [facility] Comment on above: Population Health Na vigation Outreach ([facility] ) Start: 09-27-2024 End: 09-27-2024 Telephone encounter Anay Schuler MD Work Phone: [facility] [place] Comment on above: Patient Update Start: 09-26-2024 End: 09-26-2024 ambulatory ANAY SCHULER Facility:[facility] Start: 09-26-2024 End: 09-26-2024 Patient encounter procedure Silvio Drake APRN.BILLING AND ACCOUNTING STAFF ASSISTANT Work Phone: [facility] [place] Comment on above: Frequency of urinati on (Primary Dx); Dysuria; Leukocytes in urine Start: 09-15-2024 End: 11-15-2024 Follow-up encounter Anay Schuler MD Work Phone: Geriatrics Start: 09-12-2024 End: 09-12-2024 ambulatory ANAY SCHULER Facility:[facility] Start: 09-09-2024 End: 09-09-2024 [facility] Facility:[facility] Start: 09-09-2024 End: 09-09-2024 Office outpatient visit 25 minutes nAay Schuler MD Work Phone: [facility] [place] Comment on above: Accelerated hyperten clay (Primary Dx); Uncontrolled hypertension; Paroxysmal atrial fibrillation (HCC) Start: 09-06-2024 [facility] Facility:[facility] Start: 09-01-2024 End: 11-01-2024 Follow-up encounter Anay Schuler MD Work Phone: Geriatrics Start: 08-26-2024 End: 08-27-2024 Dr. Vincent Chan MD -Emergency Department Work Phone: Start: 08-26-2024 End: 08-27-2024 Emergency department patient visit Dr. Vincent Chan MD -Emergency Department Work Phone: Start: 08-26-2024 End: 08-26-2024 [facility] Facility:[facility] Start: 08-02-2024 End: 08-02-2024 Office outpatient visit 25 minutes Anay Schuler MD Work Phone: [facility] [place] Comment on above: Exercise-induced leg fatigue (Primary Dx); Stage 3a chronic kidney disease (HCC); Gastroesophageal reflux disease, unspecified whether esophagitis present; Mixed hyperlipidemia; Anemia, unspecified type; Hypothyroidism, unspecified type Start: 08-02-2024 End: 08-02-2024 [facility] Facility:[facility] Start: 07-25-2024 End: 07-25-2024 [facility] Facility:[facility] Start: 07-18-2024 End: 07-19-2024 Refill Anay Schuler MD Work Phone: [facility] [place] Comment on above: Refill Request Start: 06-14-2024 End: 06-14-[address] Terry Basilio MD -[place] [facility] Work Phone: Start: 06-14-2024 End: 06-14-2024 ambulatory [facility] Facility:[facility] Start: 06-10-2024 End: 06-10-2024 ambulatory [facility] Facility:[facility] Start: 06-10-2024 End: 06-10-2024 Office outpatient visit 25 minutes Jeremy Yu MD Work Phone: [facility] Comment on above: Urinary frequency (P rimary Dx) Start: 06-10-2024 End: 06-10-2024 Telephone encounter Anay Schuler MD Work Phone: [facility] [place] Comment on above: requesting lab order s for urine Start: 06-10-2024 End: 06-10-2024 [facility] Facility:[facility] Start: 05-30-2024 End: 05-30-2024 Office outpatient visit 25 minutes Anay Schuler MD Work Phone: [facility] [place] Comment on above: Stage 3b chronic kid luz disease (HCC) (Primary Dx); Hearing loss, unspecified hearing loss type, unspecified laterality; Uncontrolled hypertension; Anemia, unspecified type; Vitamin B12 deficiency; Vitamin D deficiency; Hypothyroidism, unspecified type Start: 05-30-2024 End: 05-30-2024 [facility] Facility:[facility] Start: 05-20-2024 End: 05-20-2024 Refill Anay Schuler MD Work Phone: [facility] [place] Comment on above: Refill Request; Erro neous encounter-disregard (Pt called wrong provider for refill) Start: 05-18-2024 End: 05-18-2024 ambulatory [facility] Facility:[facility] Start: 05-04-2024 End: 05-04-2024 [facility] Facility:[facility] Start: 04-26-2024 End: 04-26-2024 ambulatory [facility] Facility:[facility] Start: 04-13-2024 End: 04-14-2024 Refill Anay Schuler MD Work Phone: [facility] [place] Comment on above: Refill Request Start: 03-23-2024 End: 03-23-2024 Refill Anay Schuler MD Work Phone: [facility] [place] Comment on above: Refill Request Start: 01-13-2024 Telephone encounter Anay galeano MD Work Phone: [facility] [place] Comment on above: Results Start: 01-11-2024 End: 01-11-2024 ambulatory ANAY SCHULER Facility:[facility] Start: 01-11-2024 End: 01-11-2024 [facility] Start: 01-11-2024 End: 01-11-2024 Office outpatient visit 25 minutes Anay Schuler MD Work Phone: [facility] [place] Comment on above: Mixed incontinence ( Primary Dx); Anemia, unspecified type; Essential hypertension; Need for vaccination; Pulmonary hypertension (HCC); Permanent atrial fibrillation (HCC); Bilateral hearing loss, unspecified hearing loss type Start: 10-28-2023 End: 10-28-[address] Anay Schuler Work Phone: [facility] Work Phone: Start: 10-28-2023 End: 10-28-[address] Anay Schuler Work Phone: [facility] Work Phone: Start: 10-27-2023 End: 10-27-[address] Anay Schuler Work Phone: [facility] Work Phone: Start: 10-06-2023 Telephone encounter Anay galeano MD Work Phone: [facility] [place] Comment on above: Results Start: 09-28-2023 End: 09-28-2023 Patient encounter procedure Megha Mahoney PA-C Work Phone: [facility] [place] Comment on above: Perineal rash in fem laina (Primary Dx) Start: 08-21-2023 Telephone encounter Silvio Drake APRN.CNP Work Phone: [facility] [place] Comment on above: Results Start: 08-20-2023 End: 08-20-[address] Anay Schuler Work Phone: [facility] Work Phone: Start: 08-20-2023 End: 08-20-[address] Anay Schuler Work Phone: [facility] Work Phone: Start: 08-18-2023 End: 08-18-2023 Patient encounter procedure Megha Mahoney PA-C Work Phone: [facility] [place] Comment on above: Hypertensive kidney disease with stage 3b chronic kidney disease (HCC) (Primary Dx); Essential hypertension; Anemia, unspecified type Start: 08-07-2023 Telephone encounter Jolie velasco APRN.CAREER PROFESSIONAL Work Phone: [facility] [place] Comment on above: Results Start: 07-16-2023 Non-patient / Non-visit Dr. Julia Schuler Work Phone: [facility] Work Phone: Start: 07-15-2023 Non-patient / Non-visit Dr. Julia Schuler Work Phone: [facility] Work Phone: Start: 07-14-2023 Non-patient / Non-visit Dr. Julia Schuler Work Phone: [facility] Work Phone: Start: 07-13-2023 Non-patient / Non-visit Dr. Julia Schuler Work Phone: [facility] Work Phone: Start: 07-13-2023 End: 07-16-2023 Evaluation and management of inpatient Dr. Anay Schuler Work Phone: [facility]-Progressive Care Unit Work Phone: Start: 06-05-2023 End: 06-05-[address] Anay Schuler Work Phone: [facility] Endocrin[facility] Work Phone: Start: 06-01-2023 End: 06-01-2023 Office outpatient visit 25 minutes Jolie Mckeonmaritza MAHERCAREER PROFESSIONAL Work Phone: [facility] [place] Comment on above: Hypertensive kidney disease with stage 3b chronic kidney disease (HCC) Start: 05-07-2023 Refill Anay Cardozo Work Phone: [facility] [place] Comment on above: Refill Request Start: 05-01-2023 End: 05-01-2023 Patient encounter procedure Toshia Drake APRN.BILLING AND ACCOUNTING STAFF ASSISTANT Work Phone: [facility] [place] Comment on above: Essential hypertensi on (Primary Dx) Start: 04-15-2023 End: 04-15-2023 Patient encounter procedure Megha Mahoney PA-C Work Phone: [facility] [place] Comment on above: Hypertensive kidney disease with stage 3b chronic kidney disease (HCC) (Primary Dx) Start: 04-10-2023 Telephone encounter Silvio Drake APRN.BILLING AND ACCOUNTING STAFF ASSISTANT Work Phone: [facility] [place] Comment on above: Results Start: 04-09-2023 End: 04-09-2023 Subsequent hospital visit by physician Abhinav [facility] [place] Work Phone: Radiology Comment on above: Osteoporosis without current pathological fracture, unspecified osteoporosis type [M81.0] Start: 04-09-2023 End: 04-09-2023 Patient encounter procedure Silvio Drake APRN.BILLING AND ACCOUNTING STAFF ASSISTANT Work Phone: [facility] [place] Comment on above: Hypertensive kidney disease with stage 3b chronic kidney disease (HCC) (Primary Dx); Mixed hyperlipidemia; Osteoporosis without current pathological fracture, unspecified osteoporosis type; Mid back pain; Hypothyroidism, unspecified type; Elevated hemoglobin A1c; Need for influenza vaccination Start: 04-07-2023 End: 04-07-[address] Anay Schuler Work Phone: [facility]-Laboratory, Phy Office 3rd Flr Start: 03-23-2023 Refill Anay Cardozo Work Phone: [facility] [place] Comment on above: Refill Request Start: 02-19-2023 Refill Anay Cardozo Work Phone: [facility] [place] Comment on above: Refill Request Start: 01-27-2023 End: 01-27-2023 ambulatory ANAY SCHULER Facility:[facility] Start: 01-27-2023 End: 01-27-2023 Patient encounter procedure Maura Giles MD Work Phone: [facility] Cardiology [place] Comment on above: Permanent atrial fib rillation (HCC) (Primary Dx); At risk for stroke; Anticoagulant long-term use; At risk for bleeding associated with anticoagulants; History of GI bleed Start: 01-27-2023 Chart abstracting Brittani lerma MA [facility] Cardiology [place] Start: 01-27-2023 Telephone encounter Silvio Drake APRN.BILLING AND ACCOUNTING STAFF ASSISTANT Work Phone: [facility] [place] Comment on above: Results Start: 01-12-2023 End: 01-12-2023 Subsequent hospital visit by physician [facility] Work Phone: Radiology Comment on above: 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 Anay Schuler Work Phone: [facility] Work Phone: Start: 11-19-2022 End: 11-19-[address] Anay Schuler Work Phone: [facility] Gastroenterology Start: 11-10-2022 End: 11-10-[address] Anay Schuler Work Phone: [facility]-Laboratory Start: 10-31-2022 Non-patient / Non-visit Dr. Julia Schuler Work Phone: [facility] Start: 10-31-2022 End: 10-31-2022 Admission to same day surgery center Dr. Anay Schuler Work Phone: [facility]-Endoscopy Start: 10-10-2022 Telephone encounter Anay galeano MD Work Phone: [facility] [place] Comment on above: Results Start: 10-08-2022 Telephone encounter Anay galeano MD Work Phone: [facility] [place] Comment on above: Medication Request Start: 09-26-2022 End: 09-26-[address] Anay Schuler Work Phone: [facility] Start: 09-15-2022 End: 09-15-[address] Anay Schuler Work Phone: [facility] Work Phone: Start: 09-15-2022 End: 09-15-[address] Anay Schuler Work Phone: [facility]-Laboratory, Phy Office 3rd Flr Start: 09-10-2022 End: 09-10-2022 Patient encounter procedure Anay Schuler MD Work Phone: [facility] [place] Comment on above: Anemia, unspecified type (Primary Dx); Essential hypertension; Permanent atrial fibrillation (HCC); Hypothyroidism, unspecified type; Fatigue, unspecified type Start: 08-13-2022 End: 08-13-[address] Anay Schuler Work Phone: [facility] Start: 08-04-2022 Telephone encounter Anay galeano MD Work Phone: [facility] [place] Comment on above: Patient Update; Orde rs Start: 07-22-2022 End: 07-22-[address] [facility] Start: 07-16-2022 End: 07-16-[address] Anay Schuler Work Phone: [facility] Work Phone: Start: 07-16-2022 End: 07-16-[address] Anay Schuler Work Phone: [facility] Start: 07-09-2022 End: 07-09-[address] Anay Schuler Work Phone: [facility] Work Phone: Start: 07-09-2022 End: 07-09-[address] [facility] Start: 07-01-2022 Telephone encounter Ruth crain DIRECTOR TRANSLATIONSOSA Work Phone: [facility] [place] Comment on above: Results Start: 06-27-2022 Refill Anay Cardozo Work Phone: [facility] Comment on above: Med Change Request Start: 06-06-2022 End: 06-06-[address] Anay Schuler Work Phone: [facility] Start: 06-04-2022 End: 06-04-2022 Emergency department patient visit Dr. Anay Schuler Work Phone: [facility]-Emergency Department Start: 05-31-2022 Telephone encounter Anay galeano MD Work Phone: [facility] [place] Comment on above: Patient Question; La b Orders Start: 05-21-2022 End: 05-21-[address] Anay Schuler Work Phone: [facility] Start: 05-13-2022 End: 05-13-[address] Anay Schuler Work Phone: [facility] Work Phone: Start: 05-13-2022 End: 05-13-[address] Anay Schuler Work Phone: [facility]-Laboratory, Phy Office 3rd Flr Start: 05-07-2022 End: 05-07-2022 Patient encounter procedure Anay Schuler MD Work Phone: [facility] [place] Comment on above: Pulmonary hypertensi on (HCC) (Primary Dx); Pedal edema; Permanent atrial fibrillation (HCC); Mixed hyperlipidemia; Hypertensive kidney disease with stage 3b chronic kidney disease (HCC); Essential hypertension; Stage 3a chronic kidney disease (HCC) Start: 05-05-2022 Non-patient / Non-visit Dr. Julia Schuler Work Phone: [facility] Inpatient Physicians Start: 05-04-2022 Non-patient / Non-visit Dr. Julia Schuler Work Phone: [phone] [place] [address] Start: 05-04-2022 Non-patient / Non-visit Dr. Julia Schuler Work Phone: [facility] Inpatient Phys[facility] Start: 05-03-2022 Non-patient / Non-visit Dr. Julia Schuler Work Phone: [facility] Start: 05-03-2022 Non-patient / Non-visit Dr. Julia Schuler Work Phone: [facility] Inpatient Phys[facility] Start: 05-02-2022 Non-patient / Non-visit Dr. Julia Schuler Work Phone: [facility] Start: 05-02-2022 Non-patient / Non-visit Dr. Julia Schuler Work Phone: [facility] Start: 05-01-2022 Non-patient / Non-visit Dr. Julia Schuler Work Phone: [facility] Start: 05-01-2022 End: 05-05-2022 Evaluation and management of inpatient Dr. Anay Schuler Work Phone: [facility]-Progressive Care Unit Start: 05-01-2022 End: 05-01-[address] Anay Schuler Work Phone: [facility] Work Phone: Start: 05-01-2022 End: 05-01-[address] Anay Schuler Work Phone: [facility]-Laboratory Start: 05-01-2022 End: 05-01-[address] Anay Schuler Work Phone: [facility] Start: 04-30-2022 End: 04-30-[address] Anay Schuler Work Phone: [facility] Gastro[facility] Start: 04-24-2022 End: 04-24-2022 Emergency department patient visit Dr. Anay Schuler Work Phone: [facility]-Emergency Department Start: 04-21-2022 End: 04-21-2022 Patient encounter procedure Anay Schuler MD Work Phone: [facility] [place] Comment on above: Pleural effusion (Pr imary Dx); Hypothyroidism, unspecified type; Atelectasis; History of recent pneumonia; Need for influenza vaccination; Anemia, unspecified type; Congestive heart failure, unspecified HF chronicity, unspecified heart failure type (HCC); Stage 3b chronic kidney disease (HCC) Start: 04-18-2022 End: 04-18-[address] Anay Schuler Work Phone: [facility] Start: 04-14-2022 Telephone encounter Anay galeano MD Work Phone: [facility] [place] Comment on above: Results Start: 04-10-2022 Telephone encounter Silvio Drake APRN.CNP Work Phone: [facility] [place] Comment on above: Orders Start: 04-10-2022 End: 04-10-2022 Subsequent hospital visit by physician Xr [facility] Work Phone: Radiology Comment on above: Acute cough [R05.1] Start: 04-09-2022 End: 04-09-2022 Patient encounter procedure Anay Schuler MD Work Phone: [facility] [place] Comment on above: Congestive heart nam[place] lure, unspecified HF chronicity, unspecified heart failure type (HCC) (Primary Dx); Essential hypertension; Mixed hyperlipidemia; Pedal edema; Acute cough; Hypokalemia; Hypothyroidism, unspecified type Start: 04-04-2022 Telephone encounter Anay galeano MD Work Phone: Internal [facility] Comment on above: Patient Question Start: 04-04-2022 End: 04-04-2022 Emergency department patient visit Dr. Anay Schuler Work Phone: [facility]-Emergency Department Start: 04-02-2022 End: 04-02-2022 Subsequent hospital visit by physician Xr [facility] Work Phone: Radiology Comment on above: Acute cough [R05.1] Start: 04-02-2022 End: 04-02-2022 Patient encounter procedure Silvio Drake APRN.CNP Work Phone: Internal [facility] Comment on above: Acute cough (Primary Dx); Hypokalemia; Shortness of breath; Nausea; Edema of both lower extremities Start: 04-02-2022 Telephone encounter Silvio Drake APRN.CNP Work Phone: Internal [facility] Comment on above: Results Start: 03-31-2022 End: 03-31-[address] Anay cShuler Work Phone: [facility] Work Phone: Start: 03-31-2022 End: 03-31-[address] Anay Schuler Work Phone: [facility]Laboratory Start: 03-28-2022 Telephone encounter Anay galeano MD Work Phone: Internal [facility] Comment on above: Patient Update Start: 03-25-2022 End: 03-25-[address] Anay Schuler Work Phone: [facility] Work Phone: Start: 03-25-2022 End: 03-25-[address] Anay Schuler Work Phone: [facility]Labor[facility] Start: 03-25-2022 End: 03-25-[address] Anay Schuler Work Phone: [facility] Start: 03-21-2022 Telephone encounter Silvio Drake APRN.BILLING AND ACCOUNTING STAFF ASSISTANT Work Phone: [facility] [place] Comment on above: Results Start: 03-20-2022 End: 03-20-2022 Subsequent hospital visit by physician Xr [facility] Work Phone: Radiology Comment on above: Acute cough [R05.1] Start: 03-20-2022 End: 03-20-2022 Patient encounter procedure Silvio Drake APRN.BILLING AND ACCOUNTING STAFF ASSISTANT Work Phone: [facility] [place] Comment on above: Acute cough (Primary Dx); Nausea; Diarrhea, unspecified type; Fatigue, unspecified type; Anemia, unspecified type Start: 03-14-2022 Refill Toshia JimenezBILLING AND ACCOUNTING STAFF ASSISTANT Work Phone: Internal [facility] Comment on above: Refill Request Start: 03-10-2022 End: 03-10-2022 Patient encounter procedure Anay Schuler MD Work Phone: Internal [facility] Comment on above: Essential hypertensi on (Primary Dx); Hypothyroidism, unspecified type; Persistent atrial fibrillation (HCC); Other fatigue Start: 02-23-2022 Non-patient / Non-visit Dr. Julia Schuler Work Phone: [facility] Inpatient Physicians Start: 02-22-2022 Non-patient / Non-visit Dr. Julia Schuler Work Phone: [facility] In[facility] Phys[facility] Start: 02-22-2022 Non-patient / Non-visit Dr. Julia Schuler Work Phone: [facility] Start: 02-22-2022 Non-patient / Non-visit Dr. Julia Schuler Work Phone: [facility] Start: 02-21-2022 End: 02-23-2022 Non-patient / Non-visit Dr. Anay Schuler Work Phone: [facility] Start: 02-21-2022 End: 02-23-2022 Evaluation and management of inpatient Dr. Anay Schuler [facility] Start: 02-21-2022 End: 02-21-2022 Patient encounter procedure Anay Schuler MD Work Phone: [facility] [place] Comment on above: Sweating profusely ( Primary Dx); Essential hypertension; Hypotension, unspecified hypotension type; Chest pain, unspecified type; Diarrhea, unspecified type Start: 02-21-2022 Telephone encounter Anay galeano MD Work Phone: [facility] [place] Comment on above: Low BP Start: 02-13-2022 End: 02-13-[address] Anay Schuler Work Phone: [facility] Work Phone: Start: 02-13-2022 End: 02-13-[address] Anay Schuler Work Phone: [facility]Labor[facility] Start: 02-13-2022 End: 02-13-[address] Anay Schuler Work Phone: [facility] G[facility]enter[facility] Start: 01-24-2022 Telephone encounter [facility] Comment on above: [facility] [place] [facility] Start: 01-16-2022 Refill Kayla Grace APRN.BILLING AND ACCOUNTING STAFF ASSISTANT Work Phone: OB/Gynecology Comment on above: Refill Request Start: 01-15-2022 Telephone encounter Toshia Older DIRECTOR TRANSLATION.BILLING AND ACCOUNTING STAFF ASSISTANT Work Phone: [facility] [place] Comment on above: Results; Appointment Start: 01-08-2022 Telephone encounter Anay galeano MD Work Phone: [facility] [place] Comment on above: Patient Question Start: 12-25-2021 Telephone encounter Silvio Drake DIRECTOR TRANSLATION.BILLING AND ACCOUNTING STAFF ASSISTANT Work Phone: [facility] [place] Comment on above: Results Start: 12-10-2021 End: 12-10-2021 Patient encounter procedure Anay Schuler MD Work Phone: [facility] [place] Comment on above: Encounter for Medica re annual wellness exam (Primary Dx); Mixed hyperlipidemia; Essential hypertension; Hypothyroidism, unspecified type Start: 09-23-2021 Telephone encounter Anay galeano MD Work Phone: [facility] [place] Comment on above: Patient Update Start: 09-25-2020 End: 09-25-2020 Subsequent hospital visit by physician Xr [facility] [place] Work Phone: Radiology Comment on above: Mid back pain [M54.9 ] Procedures Date Procedure Procedure Detail Performing Clinician Start: 03-01-2025 Vitamin D, 25-hydrox y measurement Dr. Anay Schuler MD Work Phone: Comment on above: Vitamin D StatusDefi ciency: <20 ng/mL (50nmol/L)Insufficiency: 20-30 ng/mL (50-75 nmol/L)Sufficiency: 30-100 ng/mL (75-250 nmol/L)Toxicity: >100 ng/mL (>250 nmol/L) Start: 03-01-[address] Anay Scuhler MD Work Phone: Start: 03-01-2025 Serum inorganic phos phate measurement Dr. Anay Schuler MD Work Phone: Start: 03-01-2025 Total iron binding c apacity measurement Dr. Anay Schuler MD Work Phone: Start: 11-19-2024 Blood count smear mc rscp w/mnl difrntl wbc count Dr. Anay Schuler MD Work Phone: Start: 11-19-2024 Calculation of international normalized ratio Dr. Anay Schuler MD Work Phone: Start: 11-19-[address] Anay Schuler MD Work Phone: Start: 11-19-2024 Mean corpuscular hem oglobin concentration determination Dr. Anay Schuler MD Work Phone: Start: 11-19-2024 Nucleated red blood cell count procedure Dr. Anay Schuler MD Work Phone: Start: 11-19-2024 Platelet mean volume determination Dr. Anay Schuler MD Work Phone: Start: 11-19-2024 Plain chest X-ray Dr. Carolyne Schuler MD Work Phone: Start: 11-15-2024 Evaluation of diagno stic study results Dr. Anay Schuler MD Work Phone: Start: 11-11-2024 Evaluation of diagno stic study results Dr. Anay Schuler MD Work Phone: Start: 11-02-2024 Blood count smear mc rscp w/mnl difrntl wbc count Dr. Anay Schuler MD Work Phone: Start: 11-02-[address] Anay Schuler MD Work Phone: Start: 11-02-2024 Mean corpuscular hem oglobin concentration determination Dr. Anay Schuler MD Work Phone: Start: 11-02-2024 Nucleated red blood cell count procedure Dr. Anay Schuler MD Work Phone: Start: 11-02-2024 Platelet mean volume determination Dr. Anay Schuler MD Work Phone: Start: 10-30-2024 Urine microscopy: red cells Dr. Anay Schuler MD Work Phone: Start: 10-30-2024 Urnls dip stick/tabl et reagent auto microscopy Dr. Anay Schuler MD Work Phone: Start: 10-30-2024 SARS-CoV-2, Influenz a & RSV (PCR) Dr. Anay Schuler MD Work Phone: Start: 10-30-2024 Dr. Anay Schuler MD Work Phone: Start: 10-30-2024 Plain chest X-ray Dr. Carolyne Schuler MD Work Phone: Start: 10-24-2024 Blood count smear mc rscp w/mnl difrntl wbc count Dr. Anay Schuler MD Work Phone: Start: 10-24-2024 Mean corpuscular hem oglobin concentration determination Dr. Anay Schuler MD Work Phone: Start: 10-24-2024 Nucleated red blood cell count procedure Dr. Anay Schuler MD Work Phone: Start: 10-24-2024 Platelet mean volume determination Dr. Anay Schuler MD Work Phone: Start: 10-24-2024 Evaluation of diagno stic study results Dr. Anay Schuler MD Work Phone: Start: 10-17-2024 Urnls dip stick/tabl et rgnt auto w/o microscopy Silvio Drake APRN.BILLING AND ACCOUNTING STAFF ASSISTANT Work Phone: Start: 10-13-2024 Blood count smear mc rscp w/mnl difrntl wbc count Dr. Anay Schuler MD Work Phone: Start: 10-13-[address] Anay Schuler MD Work Phone: Start: 10-13-2024 Mean corpuscular hem oglobin concentration determination Dr. Anay Schuler MD Work Phone: Start: 10-13-2024 Nucleated red blood cell count procedure Dr. Anay Schuler MD Work Phone: Start: 10-13-2024 Platelet mean volume determination Dr. Anay Schuler MD Work Phone: Start: 10-12-[address] Anay Schuler MD Work Phone: Start: 10-12-2024 Total cholesterol:HD L ratio measurement Dr. Anay Schuler MD Work Phone: Start: 10-11-2024 SARS-CoV-2, Influenz a & RSV (PCR) Dr. Anay Schuler MD Work Phone: Start: 10-11-2024 Dr. Anay Schuler MD Work Phone: Start: 10-11-2024 Urine microscopy: red cells Dr. Anay Schuler MD Work Phone: Start: 10-11-2024 Urnls dip stick/tabl et reagent auto microscopy Dr. Anay Schuler MD Work Phone: Start: 10-11-2024 Calculation of international normalized ratio Dr. Anya Schuler MD Work Phone: Start: 10-11-2024 Plain chest X-ray Dr. Carolyne Schuler MD Work Phone: Start: 10-08-2024 Urnls dip stick/tabl et rgnt auto w/o microscopy [facility] Start: 09-26-2024 Urnls dip stick/tabl et rgnt auto w/o microscopy Silvio Drake APRN.BILLING AND ACCOUNTING STAFF ASSISTANT Work Phone: Start: 08-27-[address] Anay Schuler MD Work Phone: Start: 06-10-2024 Urnls dip stick/tabl et rgnt auto w/o microscopy Merary Perales DIRECTOR TRANSLATION.BILLING AND ACCOUNTING STAFF ASSISTANT Work Phone: Start: 08-20-[address] Chelsea Schuler Work Phone: Start: 07-13-2023 Pulmonary ventilatio n perfusion study Dr. Anay Schuler Work Phone: Start: 07-13-2023 End: 07-13-2023 X-ray of both feet Dr. Anay Schuler Work Phone: Start: 07-13-2023 X-ray of lumbar spin e, two or three views Dr. Anay Schuler Work Phone: Start: 07-13-[address] Anay Schuler Work Phone: Start: 07-13-2023 SARS-CoV-2, Influenz a & RSV (PCR) Dr. Anay Schuler Work Phone: Start: 07-13-[address] Chelsea Schuler Work Phone: Start: 07-13-2023 CT of chest without contrast Dr. Anay Schuler Work Phone: Start: 07-13-2023 Plain chest X-ray Dr. Carolyne Schuler Work Phone: Start: 07-13-2023 CT of head without contrast Dr. Anay Schuler Work Phone: Start: 04-09-2023 Radex spine thoracic 3 views Silvio Drake DIRECTOR TRANSLATION.BILLING AND ACCOUNTING STAFF ASSISTANT Work Phone: Start: 04-09-2023 INFLUENZA VACCINE, P RSV FREE, AGE 65+ YR, HIGH DOSE, QUADRIVALENT (FLUZONE HIGH-DOSE) Silvio Drake DIRECTOR TRANSLATION.BILLING AND ACCOUNTING STAFF ASSISTANT Work Phone: Start: 01-27-2023 Ecg routine ecg w/le ast 12 lds w/i&r Maura Giles MD Work Phone: Start: 01-12-2023 Dxa bone density rex dy 1/> sites axial skel Silvio Drake DIRECTOR TRANSLATION.BILLING AND ACCOUNTING STAFF ASSISTANT Work Phone: Start: 06-04-2022 Plain chest X-ray Dr. Carolyne Schuler Work Phone: Start: 05-02-[address] Julia Schuler Work Phone: Start: 05-01-2022 Plain chest X-ray Dr. Carolyne Schuler Work Phone: Start: 04-24-2022 Plain chest X-ray Dr. Carolyne Schuler Work Phone: Start: 04-21-2022 INFLUENZA SEASONAL QUADRIVALENT HIGH DOSE AGE 65+ Anay Schuler MD Work Phone: Start: 04-10-2022 Radiologic exam ches t 2 views Silvio Older DIRECTOR TRANSLATION.BILLING AND ACCOUNTING STAFF ASSISTANT Work Phone: Start: 04-04-2022 Plain chest X-ray Dr. Carolyne Schuler Work Phone: Start: 04-02-2022 Radiologic exam ches t 2 views Silvio Older DIRECTOR TRANSLATION.BILLING AND ACCOUNTING STAFF ASSISTANT Work Phone: Start: 03-31-2022 Inf agent det nuclei c acid clostridium amp probe Silvio Older DIRECTOR TRANSLATION.BILLING AND ACCOUNTING STAFF ASSISTANT Work Phone: Start: 03-20-2022 Radiologic exam ches t 2 views Silvio Older DIRECTOR TRANSLATION.BILLING AND ACCOUNTING STAFF ASSISTANT Work Phone: Start: 02-22-[address] Anay Schuler Work Phone: Start: 02-21-2022 Plain chest X-ray Dr. Carolyne Schuler Work Phone: Start: 09-25-2020 Radex spine thoracic 2 views Anay Schuler MD Work Phone: Urine culture Dr. Anay galeano Work Phone: Urine culture Dr. Anay galeano Work Phone: Urine culture Dr. Anay galeano Work Phone: Plan of Treatment Date Care Activity Detail Author Start: 12-13-2027 Diabetes Screening Diabetes Screenin [facility] Start: 09-13-2027 Diabetes Screening Diabetes Screenin [facility] Start: 07-25-2027 Diabetes Screening Diabetes Screenin [facility] Start: 07-02-2026 Diabetes Screening Diabetes Screenin [facility] Start: 04-09-2026 Diabetes Screening Diabetes Screenin [facility] Start: 06-03-2025 DIABETES SCREEN DIABETES SCREEN [facility] Start: 06-03-2025 Diabetes Screening Diabetes Screenin [facility] Start: 04-17-2025 DIABETES SCREEN DIABETES SCREEN [facility] Start: 04-10-2025 DIABETES SCREEN DIABETES SCREEN [facility] Start: 04-10-2025 End: 04-10-2025 Patient encounter procedure 04/10/2025 1:40 PM EDT Office Visit [facility] [place] [address] [place] [place] [address] Anay Schuler MD [address] [place] [id number] 3 month follow up [facility] [place] Comment on above: 3 month follow up Start: 04-03-2025 DIABETES SCREEN DIABETES SCREEN [facility] Start: 03-20-2025 DIABETES SCREEN DIABETES SCREEN [facility] Start: 02-27-2025 Influenza vaccination [facility] Start: 01-12-2025 Screening for osteoporosis Bone Dens ity Screening [facility] Start: 01-09-2025 Evaluation of diagno stic study results [facility] Start: 01-08-2025 DIABETES SCREEN DIABETES SCREEN [facility] Start: 01-03-2025 End: 01-03-2025 Patient encounter procedure 01/03/2025 2:00 PM EDT Office Visit [facility] [place] [address] [place] [place] [address] Anay Schuler MD [address] [place] [address] 2 Month F/U [facility] [place] Comment on above: 2 Month F/U Start: 12-21-2024 End: 12-21-2024 Patient encounter procedure 12/21/2024 2:00 PM EDT Office Visit [facility] Medicine [place] [address] [facility] [place] [address] Silvio Drake APRN.BILLING AND ACCOUNTING STAFF ASSISTANT [address] [place] [place] [address] 1 week follow up congestion [facility] [place] Comment on above: 1 week follow up con gestion Start: 12-13-2024 DIABETES SCREEN DIABETES SCREEN [facility] Start: 11-28-2024 End: 11-28-2024 Patient encounter procedure 11/28/2024 3:40 PM EDT Office Visit [facility] [place] [address] [place] [place] [address] Anay Schuler MD [address] [place] [id number] 11/19/24 [place] [facility] Follow Up - ED Utilization [facility] [place] Comment on above: 11/19/24 [place] [facility] Follow Up - ED Utilization Start: 11-28-2024 End: 02-27-2025 CBC W Auto Differential panel - Blood COMPLETE BLOOD COUNT AND DIFFERENTIAL Lab Routine Anemia, unspecified type Expected: 11/28/2024, Expires: 02/27/2025 [facility] Comment on above: Expected: 11/28/2024 , Expires: 02/27/2025 Start: 11-28-2024 End: 02-27-2025 Cobalamin (Vitamin B12) [Mass/volume] in Serum or Plasma VITAMIN B12 Lab Routine Vitamin B12 deficiency Expected: 11/28/2024, Expires: 02/27/2025 [facility] Comment on above: Expected: 11/28/2024 , Expires: 02/27/2025 Start: 11-28-2024 End: 02-27-2025 Ferritin [Mass/volume] in Serum or Plasma FERRITIN Lab Routine Anemia, unspecified type Expected: 11/28/2024, Expires: 02/27/2025 [facility] Comment on above: Expected: 11/28/2024 , Expires: 02/27/2025 Start: 11-28-2024 End: 02-27-2025 Iron and Iron binding capacity panel - Serum or Plasma IRON AND TIBC Lab Routine Anemia, unspecified type Expected: 11/28/2024, Expires: 02/27/2025 [facility] Comment on above: Expected: 11/28/2024 , Expires: 02/27/2025 Start: 11-19-2024 [facility] Start: 11-19-2024 [facility] Start: 11-15-2024 Evaluation of diagno stic study results [facility] Start: 11-14-2024 End: 11-14-2024 Patient encounter procedure 11/14/2024 3:40 PM EDT Office Visit Internal Medicine [place] [id number] [place] [address] Anay Schuler MD [address] [place] [address] 10/30/24-11/03/24 [facility] F/U - AFIB [facility] [place] Comment on above: 10/30/24-11/03/24 [facility] F/ U - AFIB Start: 11-11-2024 [facility] Start: 11-04-2024 Referral to service [facility] Start: 11-03-2024 Patient discharge [facility] Start: 11-01-2024 Care planning and pr oblem solving actions [facility] Start: 10-31-2024 End: 10-31-2024 [facility] Start: 10-31-2024 End: 10-31-2024 Patient encounter procedure 10/31/2024 2:00 PM EDT Office Visit Internal Medicine [place] [address] [place] [address] Anay Schuler MD [address] [place] [address] 3 month follow up [facility] [place] Comment on above: 3 month follow up Start: 10-31-2024 End: 10-31-2024 Care planning and problem solving actions [facility] Start: 10-31-2024 Referral to occupati onal therapist [facility] Start: 10-31-2024 Referral to service [facility] Start: 10-30-2024 End: 10-31-2024 [facility] Start: 10-30-2024 Care planning and pr oblem solving actions [facility] Start: 10-30-2024 Following clinical p athway protocol [facility] Start: 10-30-2024 Ambulation without limitation [facility] Start: 10-30-2024 Assessment of risk o f venous thromboembolism [facility] Start: 10-30-2024 Insertion of cathete r into peripheral vein [facility] Start: 10-30-2024 Measuring intake and output [facility] Start: 10-30-2024 Providing care accor ding to standard [facility] Start: 10-30-2024 Referral to commonwealth attorney [facility] Start: 10-30-2024 Verification routine [facility] Start: 10-30-2024 Admission procedure [facility] Start: 10-30-2024 [facility] Start: 10-17-2024 End: 10-17-2024 Patient encounter procedure 10/17/2024 1:40 PM EDT Office Visit Internal Medicine [place] [address] [place] [address] Silvio Drake APRN.BILLING AND ACCOUNTING STAFF ASSISTANT [address] [place] [address] WC follow up / A FIB w/ RVR [facility] [place] Comment on above: [facility] follow up / A FI B w/ RVR Start: 10-13-2024 Patient discharge [facility] Start: 10-12-2024 Care planning and pr oblem solving actions [facility] Start: 10-12-2024 [facility] Start: 10-12-2024 Care planning and pr oblem solving actions [facility] Start: 10-12-2024 Continuous pulse oximetry [facility] Start: 10-11-2024 Following clinical p athway protocol [facility] Start: 10-11-2024 Referral to commonwealth attorney [facility] Start: 10-11-2024 Assessment of risk o f venous thromboembolism [facility] Start: 10-11-2024 Fall prevention [facility] Start: 10-11-2024 Insertion of cathete r into peripheral vein [facility] Start: 10-11-2024 Introduction of urin karla catheter [facility] Start: 10-11-2024 Measuring intake and output [facility] Start: 10-11-2024 Oxygen therapy [facility] Start: 10-11-2024 Providing care accor ding to standard [facility] Start: 10-11-2024 Provision of activit y privileges [facility] Start: 10-11-2024 Referral to occupati onal therapist [facility] Start: 10-11-2024 Referral to service [facility] Start: 10-11-2024 End: 10-11-2024 [facility] Start: 10-11-2024 Verification routine [facility] Start: 10-11-2024 Admission procedure [facility] Start: 10-11-2024 Hospital admission, emergency, from emergency room, medical nature [facility] Start: 10-11-2024 [facility] Start: 09-09-2024 End: 12-09-2024 Aldosterone [Mass/volume] in Serum or Plasma ALDOSTERONE BLD Lab Routine Accelerated hypertension Expected: 09/09/2024, Expires: 12/09/2024 [facility] Comment on above: Expected: 09/09/2024 , Expires: 12/09/2024 Start: 09-09-2024 End: 12-09-2024 ALDOSTERONE/DIRECT RENIN RATIO ALDOSTERONE/DIRECT RENIN RATIO Lab Routine Accelerated hypertension Expected: 09/09/2024, Expires: 12/09/2024 [facility] Work Phone: Comment on above: Expected: 09/09/2024 , Expires: 12/09/2024 Start: 09-09-2024 End: 12-09-2024 Basic metabolic 2000 panel - Serum or Plasma BASIC METABOLIC PANEL Lab Routine Uncontrolled hypertension Expected: 09/09/2024, Expires: 12/09/2024 [facility] Comment on above: Expected: 09/09/2024 , Expires: 12/09/2024 Start: 09-09-2024 End: 12-09-2024 DIRECT RENIN PLASMA DIRECT RENIN PLASMA Lab Routine Accelerated hypertension Expected: 09/09/2024, Expires: 12/09/2024 [facility] Comment on above: Expected: 09/09/2024 , Expires: 12/09/2024 Start: 09-09-2024 End: 12-09-2024 Magnesium [Mass/volume] in Serum or Plasma MAGNESIUM Lab Routine Uncontrolled hypertension Expected: 09/09/2024, Expires: 12/09/2024 [facility] Comment on above: Expected: 09/09/2024 , Expires: 12/09/2024 Start: 08-27-2024 [facility] Start: 08-26-2024 End: 08-26-2024 Patient encounter procedure [facility] Comment on above: 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] Start: 08-02-2024 End: 08-02-2024 Patient encounter procedure 08/02/2024 1:40 PM EST Office Visit [facility] [place] [address] [place] [address] Anay Schuler MD [address] [place] [address] 3 mo follow up [facility] [place] Comment on above: 3 mo follow up Start: 07-26-2024 End: 11-27-2024 25-hydroxyvitamin D3 [Mass/volume] in Serum or Plasma VITAMIN D 25 HYDROXY Lab Routine Vitamin D deficiency Expected: 07/26/2024, Expires: 11/27/2024 [facility] Comment on above: Expected: 07/26/2024 , Expires: 11/27/2024 Start: 07-26-2024 End: 11-27-2024 CBC panel - Blood by Automated count COMPLETE BLOOD COUNT Lab Routine Stage 3b chronic kidney disease (HCC) Anemia, unspecified type Expected: 07/26/2024, Expires: 11/27/2024 [facility] Work Phone: Comment on above: Expected: 07/26/2024 , Expires: 11/27/2024 Start: 07-26-2024 End: 11-27-2024 Comprehensive metabolic 2000 panel - Serum or Plasma COMPREHENSIVE METABOLIC PANEL Lab Routine Stage 3b chronic kidney disease (HCC) Uncontrolled hypertension Expected: 07/26/2024, Expires: 11/27/2024 [facility] Comment on above: Expected: 07/26/2024 , Expires: 11/27/2024 Start: 07-26-2024 End: 11-27-2024 Lipid 1996 panel - Serum or Plasma LIPID PANEL BASIC Lab Routine Stage 3b chronic kidney disease (HCC) Expected: 07/26/2024, Expires: 11/27/2024 [facility] Comment on above: Expected: 07/26/2024 , Expires: 11/27/2024 Start: 07-26-2024 End: 11-27-2024 Thyrotropin [Units/volume] in Serum or Plasma THYROID STIMULATING HORMONE Lab Routine Hypothyroidism, unspecified type Expected: 07/26/2024, Expires: 11/27/2024 [facility] Comment on above: Expected: 07/26/2024 , Expires: 11/27/2024 Start: 06-29-2024 Advance Directive Discussion Advance Directive Discussion [facility] Start: 06-29-2024 Medicare Advantage A nnual Wellness Visit Medicare Advantage Annual Wellness Visit [facility] Start: 06-10-2024 End: 09-09-2024 Urinalysis complete panel - Urine [facility] Work Phone: Comment on above: Expected: 06/10/2024 , Expires: 09/09/2024 Start: 06-04-2024 DIABETES SCREEN DIABETES SCREEN [facility] Start: 05-30-2024 End: 08-29-2024 Thyroxine (T4) free [Mass/volume] in Serum or Plasma T4 FREE/FREE THYROXINE Lab Routine Hypothyroidism, unspecified type Expected: 05/30/2024, Expires: 08/29/2024 [facility] Comment on above: Expected: 05/30/2024 , Expires: 08/29/2024 Start: 05-30-2024 End: 05-30-2024 Patient encounter procedure 05/30/2024 1:40 PM EST Office Visit [facility] [place] [address] [place] [address] Anay Schuler MD [address] [place] [address] 4 mo follow up, routine [facility] [place] Comment on above: 4 mo follow up, orquidea lee Start: 05-16-2024 End: 05-16-2024 Patient encounter procedure 05/16/2024 11:40 AM EST Office Visit [facility] [place] [address] [place] [address] Anay Schuler MD [address] [place] [address] 4 mo follow up, routine [facility] [place] Comment on above: 4 mo follow up, orquidea lee Start: 04-15-2024 RSV Vaccine (1 - 1-d ose 60+ series) RSV Vaccine (1 - 1-dose 60+ series) [facility] Comment on above: Postponed from 11/29 (Declined at this time) Start: 04-15-2024 RSV Vaccine (1 - 1-d ose 75+ series) RSV Vaccine (1 - 1-dose 75+ series) [facility] Comment on above: Postponed from 11/29 (Declined at this time) Start: 02-28-2024 Covid-19 Vaccine () Covid-19 Vaccine () [facility] Start: 02-28-2024 Covid-19 Vaccine () Covid-19 Vaccine () [facility] Start: 02-28-2024 Influenza vaccination Influenza Vacc ine (#1) [facility] Start: 09-11-2023 COVID-19 VACCINE (4 - Booster for Moderna series) COVID-19 VACCINE (4 - Booster for Moderna series) [facility] Comment on above: Postponed from 07/22 (Declined at this time) Start: 09-11-2023 COVID-19 VACCINE (4 - Moderna series) COVID-19 VACCINE (4 - Moderna series) [facility] Comment on above: Postponed from 07/22 (Declined at this time) Start: 09-11-2023 SHINGRIX VACCINE (1 of 2) MONREAL GRIX VACCINE (1 of 2) [facility] Comment on above: Postponed from 11/29 (Declined at this time) Start: 07-16-2023 Patient discharge [facility] Start: 07-16-2023 Referral to service [facility] Start: 07-13-2023 Ambulation without limitation [facility] Start: 07-13-2023 Application of ice c ollar, cap or bag [facility] Start: 07-13-2023 Assessment of risk o f venous thromboembolism [facility] Start: 07-13-2023 Insertion of cathete r into peripheral vein [facility] Start: 07-13-2023 Measuring intake and output [facility] Start: 07-13-2023 Oxygen therapy [facility] Start: 07-13-2023 Providing care accor ding to standard [facility] Start: 07-13-2023 Referral to occupati onal therapist [facility] Start: 07-13-2023 Referral to service [facility] Start: 07-13-2023 [facility] Start: 07-13-2023 Following clinical p athway protocol [facility] Start: 07-13-2023 Respiratory pathogen s DNA and RNA panel - Respiratory specimen by GUERA with probe detection [facility] Start: 07-13-2023 Verification routine [facility] Start: 07-13-2023 Admission procedure [facility] Start: 07-13-2023 End: 07-13-2023 X-ray of both feet Foot min 3 Views [facility] Start: 07-13-2023 X-ray of lumbar spin e, two or three views Lumbar Spine 2 or 3 Views [facility] Start: 07-13-2023 XR Foot GE 3 Views [facility] Start: 07-13-2023 XR Lumbar spine 2 or 3 Views [facility] Start: 07-13-2023 [facility] Start: 07-13-2023 Hospital admission, emergency, from emergency room, medical nature [facility] Start: 07-13-2023 [facility] Start: 06-29-2023 Advance Directive Discussion Advance Directive Discussion [facility] Start: 06-29-2023 Behavioral Health Screening Behavioral Health Screening [facility] Start: 06-29-2023 Depression Assessment Depression Ass essment [facility] Start: 06-07-2023 Urine microalbumin profile [facility] Start: 02-27-2023 Covid-19 Vaccine ( season) Covid-19 Vaccine ( season) [facility] Start: 02-27-2023 Influenza vaccination [facility] Start: 10-31-2022 Egd transoral biopsy single/multiple EGD BIOPSY SINGLE/MULTIPLE [facility] Start: 10-31-2022 Egd transoral contro l bleeding any method EGD CONTROL BLEEDING ANY [facility] Start: 10-31-2022 Patient discharge [facility] Start: 09-10-2022 End: 11-10-2022 CBC W Auto Differential panel - Blood CBC + DIFF Lab Routine Essential hypertension Expected: 09/10/2022, Expires: 11/10/2022 [facility] Work Phone: Comment on above: Expected: 09/10/2022 , Expires: 11/10/2022 Start: 09-10-2022 End: 11-10-2022 Comprehensive metabolic 2000 panel - Serum or Plasma COMP METABOLIC PANEL Lab Routine Essential hypertension Expected: 09/10/2022, Expires: 11/10/2022 [facility] Work Phone: Comment on above: Expected: 09/10/2022 , Expires: 11/10/2022 Start: 09-10-2022 End: 11-10-2022 Thyrotropin [Units/volume] in Serum or Plasma TSH BLD Lab Routine Essential hypertension Hypothyroidism, unspecified type Expected: 09/10/2022, Expires: 11/10/2022 [facility] Work Phone: Comment on above: Expected: 09/10/2022 , Expires: 11/10/2022 Start: 06-29-2022 ADVANCE DIRECTIVE DISCUSSION ADVANCE DIRECTIVE DISCUSSION [facility] Start: 06-29-2022 DEPRESSION ASSESSMENT DEPRESSION ASS ESSMENT [facility] Start: 06-04-2022 [facility] Start: 05-22-2022 End: 05-21-2023 Radiologic exam chest 2 views XR CHEST 2V FRONTAL/LAT Radiology Routine History of recent pneumonia Expected: 05/22/2022, Expires: 05/21/2023 [facility] Work Phone: Comment on above: Expected: 05/22/2022 , Expires: 05/21/2023 Start: 05-12-2022 Blood chemistry [facility] Work Phone: Start: 05-11-2022 Blood chemistry [facility] Work Phone: Start: 05-10-2022 Blood chemistry [facility] Work Phone: Start: 05-09-2022 Blood chemistry [facility] Work Phone: Start: 05-08-2022 Blood chemistry [facility] Work Phone: Start: 05-07-2022 End: 07-07-2022 Basic metabolic 2000 panel - Serum or Plasma BASIC METABOLIC PNL Lab Routine Essential hypertension Expected: 05/07/2022, Expires: 07/07/2022 [facility] Work Phone: Comment on above: Expected: 05/07/2022 , Expires: 07/07/2022 Start: 05-07-2022 End: 07-07-2022 CBC W Auto Differential panel - Blood CBC + DIFF Lab Routine Essential hypertension Expected: 05/07/2022, Expires: 07/07/2022 [facility] Work Phone: Comment on above: Expected: 05/07/2022 , Expires: 07/07/2022 Start: 05-07-2022 Blood chemistry [facility] Work Phone: Start: 05-06-2022 Blood chemistry [facility] Work Phone: Start: 05-05-2022 Patient discharge [facility] Start: 05-03-2022 [facility] Start: 05-02-[address] commissioner [facility] Start: 05-02-2022 Care planning and pr oblem solving actions [facility] Start: 05-01-2022 Following clinical p athway protocol [facility] Start: 05-01-2022 Application of elast ic bandage [facility] Start: 05-01-2022 Assessment of risk o f venous thromboembolism [facility] Start: 05-01-2022 Catheterization of vein [facility] Start: 05-01-2022 Elevation of affecte d extremity [facility] Start: 05-01-2022 Incentive spirometry [facility] Start: 05-01-2022 Insertion of cathete r into peripheral vein [facility] Start: 05-01-2022 Measuring intake and output [facility] Start: 05-01-2022 Notification of physician [facility] Start: 05-01-2022 Patient education [facility] Start: 05-01-2022 Providing care accor ding to standard [facility] Start: 05-01-2022 Provision of activit y privileges [facility] Start: 05-01-2022 Referral to commonwealth attorney [facility] Start: 05-01-2022 Referral to occupati onal therapist [facility] Start: 05-01-2022 Referral to service [facility] Start: 05-01-2022 [facility] Start: 05-01-2022 Troponin I measurement [facility] Work Phone: Start: 05-01-2022 Admission procedure [facility] Start: 05-01-2022 End: 05-02-2022 [facility] Start: 05-01-2022 Patient referral to dietitian [facility] Start: 04-24-2022 Plain chest X-ray Chest 1 View (Port able) [facility] Work Phone: Start: 04-24-2022 XR Chest Single view [facility] Work Phone: Start: 04-14-2022 End: 06-14-2022 Hemoglobin [Mass/volume] in Blood HEMOGLOBIN (HGB) Lab Routine Anemia, unspecified type Expected: 04/14/2022, Expires: 06/14/2022 [facility] Work Phone: Comment on above: Expected: 04/14/2022 , Expires: 06/14/2022 Start: 04-11-2022 End: 06-11-2022 Basic metabolic 2000 panel - Serum or Plasma BASIC METABOLIC PNL Lab Routine Hypotension, unspecified hypotension type GERI (acute kidney injury) (HCC) Expected: 04/11/2022, Expires: 06/11/2022 [facility] Work Phone: Comment on above: Expected: 04/11/2022 , Expires: 06/11/2022 Start: 04-09-2022 End: 06-09-2022 Basic metabolic 2000 panel - Serum or Plasma BASIC METABOLIC PNL Lab Routine Congestive heart failure, unspecified HF chronicity, unspecified heart failure type (HCC) Expected: 04/09/2022, Expires: 06/09/2022 [facility] Work Phone: Comment on above: Expected: 04/09/2022 , Expires: 06/09/2022 Start: 04-09-2022 End: 06-09-2022 CBC W Auto Differential panel - Blood CBC + DIFF Lab Routine Congestive heart failure, unspecified HF chronicity, unspecified heart failure type (HCC) Expected: 04/09/2022, Expires: 06/09/2022 [facility] Work Phone: Comment on above: Expected: 04/09/2022 , Expires: 06/09/2022 Start: 04-09-2022 End: 06-09-2022 Magnesium [Mass/volume] in Serum or Plasma MAGNESIUM BLD Lab Routine Hypokalemia Expected: 04/09/2022, Expires: 06/09/2022 [facility] Work Phone: Comment on above: Expected: 04/09/2022 , Expires: 06/09/2022 Start: 04-09-2022 End: 06-09-2022 Thyrotropin [Units/volume] in Serum or Plasma TSH BLD Lab Routine Hypothyroidism, unspecified type Expected: 04/09/2022, Expires: 06/09/2022 [facility] Work Phone: Comment on above: Expected: 04/09/2022 , Expires: 06/09/2022 Start: 04-04-2022 [facility] Work Phone: Start: 04-02-2022 End: 06-02-2022 Basic metabolic 2000 panel - Serum or Plasma BASIC METABOLIC PNL Lab Routine Hypokalemia Expected: 04/02/2022, Expires: 06/02/2022 [facility] Work Phone: Comment on above: Expected: 04/02/2022 , Expires: 06/02/2022 Start: 03-20-2022 End: 05-20-2022 CBC W Auto Differential panel - Blood [facility] Work Phone: Comment on above: Expected: 03/20/2022 , Expires: 05/20/2022 Start: 03-20-2022 End: 05-20-2022 Comprehensive metabolic 2000 panel - Serum or Plasma [facility] Work Phone: Comment on above: Expected: 03/20/2022 , Expires: 05/20/2022 Start: 03-10-2022 End: 05-10-2022 CBC W Auto Differential panel - Blood [facility] Work Phone: Comment on above: Expected: 03/10/2022 , Expires: 05/10/2022 Start: 03-10-2022 End: 05-10-2022 Thyrotropin [Units/volume] in Serum or Plasma [facility] Work Phone: Comment on above: Expected: 03/10/2022 , Expires: 05/10/2022 Start: 02-27-2022 Influenza vaccination INFLUENZA (#1) [facility] Start: 02-23-2022 Patient discharge [facility] Work Phone: Start: 02-23-2022 Blood chemistry [facility] Work Phone: Start: 02-22-2022 Blood chemistry [facility] Work Phone: Start: 02-22-2022 [facility] Work Phone: Start: 02-21-2022 Application of intermittent pneumatic compression device [facility] Work Phone: Start: 02-21-2022 Catheterization of vein [facility] Work Phone: Start: 02-21-2022 Notification of physician [facility] Work Phone: Start: 02-21-2022 Referral to gastroenterology service [facility] Work Phone: Start: 02-21-2022 Assessment of risk o f venous thromboembolism [facility] Work Phone: Start: 02-21-2022 Insertion of cathete r into peripheral vein [facility] Work Phone: Start: 02-21-2022 Measuring intake and output [facility] Work Phone: Start: 02-21-2022 End: 02-21-2022 Oxygen therapy [facility] Work Phone: Start: 02-21-2022 Providing care accor ding to standard [facility] Work Phone: Start: 02-21-2022 Provision of activit y privileges [facility] Work Phone: Start: 02-21-2022 Referral to commonwealth attorney [facility] Work Phone: Start: 02-21-2022 Referral to occupati onal therapist [facility] Work Phone: Start: 02-21-2022 Referral to service [facility] Work Phone: Start: 02-21-2022 Tobacco use cessatio n education [facility] Work Phone: Start: 02-21-2022 [facility] Work Phone: Start: 02-21-2022 Troponin I measurement [facility] Work Phone: Start: 02-21-2022 Following clinical p athway protocol [facility] Work Phone: Start: 02-21-2022 Admission procedure [facility] Work Phone: Start: 02-21-2022 [facility] Work Phone: Start: 01-16-2022 End: 03-18-2022 25-hydroxyvitamin D3 [Mass/volume] in Serum or Plasma VITAMIN D 25 HYDROXY Lab Routine History of osteoporosis jail use of alendronate therapy Expected: 01/16/2022, Expires: 03/18/2022 [facility] Work Phone: Comment on above: Expected: 01/16/2022 , Expires: 03/18/2022 Start: 12-25-2021 End: 02-24-2022 Basic metabolic 2000 panel - Serum or Plasma BASIC METABOLIC PNL Lab Routine Hypertensive kidney disease with stage 3b chronic kidney disease (HCC) Expected: 12/25/2021, Expires: 02/24/2022 [facility] Work Phone: Comment on above: Expected: 12/25/2021 , Expires: 02/24/2022 Start: 09-24-2021 COVID-19 VACCINE (4 - Booster for Moderna series) COVID-19 VACCINE (4 - Booster for Moderna series) [facility] Start: 07-22-2021 COVID-19 VACCINE (4 - Booster for Moderna series) COVID-19 VACCINE (4 - Booster for Moderna series) [facility] Start: 06-29-2021 ADVANCE DIRECTIVE DISCUSSION ADVANCE DIRECTIVE DISCUSSION [facility] Start: 06-29-2021 DEPRESSION ASSESSMENT DEPRESSION ASS ESSMENT [facility] Start: 11-30-2011 RSV Vaccine (1 - 1-d ose 75+ series) RSV Vaccine (1 - 1-dose 75+ series) [facility] Start: 1996 RSV Vaccine (1 - 1-d ose 60+ series) RSV Vaccine (1 - 1-dose 60+ series) [facility] Start: 1986 SHINGRIX VACCINE (1 of 2) [facility] Start: 1954 Anxiety Screening Anxiety Screening [facility] Start: 1954 Depression Screening Depression Scre ening [facility] Anion gap in Serum o r Plasma [facility] Anion gap measurement [facility] Work Phone: Bacteria identified in Urine by Culture Urine Culture [facility] Work Phone: Bacteria identified in Urine by Culture URINE CULTURE Microbiology Routine Urinary frequency Ordered: 06/10/2024 [facility] Work Phone: Comment on above: Ordered: 06/10/2024 Bacteria identified in Urine by Culture BACTERIAL CULTURE, URINE Microbiology Routine Frequency of urination Dysuria Leukocytes in urine 09/26/2024 2:20 PM EDT [facility] Work Phone: Bacteria identified in Urine by Culture BACTERIAL CULTURE, URINE Microbiology Routine Dysuria Ordered: 10/08/2024 [facility] Comment on above: Ordered: 10/08/2024 BUN/Creatinine ratio [facility] Work Phone: BUN/Creatinine ratio [facility] Calcium [Mass/volume ] in Serum or Plasma [facility] Work Phone: Calcium [Mass/volume ] in Serum or Plasma [facility] Carbon dioxide, tota l [Moles/volume] in Central venous blood [facility] Carbon dioxide, tota l [Moles/volume] in Serum or Plasma [facility] Work Phone: Cardioversion [facility] Work Phone: End: 12-10-2022 CBC panel - Blood by Automated count CBC Lab Routine Essential hypertension Every 6 months for 12 Occurrences starting 12/10/2021 until 12/10/2022 [facility] Work Phone: Comment on above: Every 6 months for 1 2 Occurrences starting 12/10/2021 until 12/10/2022 Chloride [Moles/volu me] in Serum or Plasma [facility] Work Phone: Cholesterol [Mass/vo lume] in Serum or Plasma [facility] Work Phone: Cholesterol in HDL [Mass/volume] in Serum or Plasma [facility] Work Phone: Cholesterol in LDL [Mass/volume] in Serum or Plasma [facility] Work Phone: Clostridioides diffi cile toxin genes [Presence] in Stool by GUERA with probe detection C. DIFFICILE PCR Lab Routine Diarrhea, unspecified type Fatigue, unspecified type Ordered: 03/20/2022 [facility] Work Phone: Comment on above: Ordered: 03/20/2022 End: 12-10-2022 Comprehensive metabolic 2000 panel - Serum or Plasma COMP METABOLIC PANEL Lab Routine Essential hypertension Every 6 months for 12 Occurrences starting 12/10/2021 until 12/10/2022 [facility] Work Phone: Comment on above: Every 6 months for 1 2 Occurrences starting 12/10/2021 until 12/10/2022 Creatinine [Mass/vol ume] in Serum or Plasma [facility] Creatinine [Moles/vo lume] in Serum or Plasma [facility] Work Phone: End: 02-06-2024 DXA-AXIAL SKELETON DXA-AXIAL SKELETON Radiology Routine 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, subsequent encounter 1 Occurrences starting 01/07/2023 until 02/06/2024 [facility] Work Phone: Comment on above: 1 Occurrences starti ng 01/07/2023 until 02/06/2024 Glucose [Mass/volume ] in Serum or Plasma [facility] Work Phone: Glucose [Mass/volume ] in Serum or Plasma [facility] End: 01-11-2025 HEARING TEST/AUDIOGRAM HEARING TEST/AUDIOGRAM Audiology Routine Bilateral hearing loss, unspecified hearing loss type 1 Occurrences starting 01/11/2024 until 01/11/2025 [facility] Work Phone: Comment on above: 1 Occurrences starti ng 01/11/2024 until 01/11/2025 Hematocrit [Volume Fraction] of Blood [facility] Work Phone: Hemoglobin [Mass/vol ume] in Blood [facility] Work Phone: Hemoglobin.gastroint estina l.lower [Presence] in Stool by Immunoassay IMMUNOCHEMICAL FECAL OCCULT BLOOD TEST Lab Routine Anemia, unspecified type Ordered: 11/28/2024 [facility] Work Phone: Comment on above: Ordered: 11/28/2024 Influenza virus A an d B RNA and SARS-CoV-2 (COVID-19) N gene panel - Respiratory specimen by GUERA with probe detection COVID WITH FLUA+B, ROUTINE Microbiology Routine Acute cough Nausea Diarrhea, unspecified type Fatigue, unspecified type 03/20/2022 3:22 PM EDT [facility] Work Phone: Leukocytes [#/volume ] in Blood [facility] Work Phone: End: 12-10-2022 Lipid 1996 panel - Serum or Plasma LIPID PANEL BASIC Lab Routine Mixed hyperlipidemia Every 6 months for 12 Occurrences starting 12/10/2021 until 12/10/2022 [facility] Work Phone: Comment on above: Every 6 months for 1 2 Occurrences starting 12/10/2021 until 12/10/2022 Mean corpuscular hemoglobin concentration determination [facility] Work Phone: Mean corpuscular hemoglobin determination [facility] Work Phone: Measurement of renal function [facility] Work Phone: Measurement of renal function [facility] Neutrophil count [facility] Work Phone: Neutrophil percent differential count [facility] Work Phone: NM Heart Views W str ess and W radionuclide IV [facility] Work Phone: Patient Education [facility] Work Phone: Patient referral [facility] Work Phone: Platelets [#/volume] in Blood [facility] Work Phone: Potassium [Moles/vol ume] in Serum or Plasma [facility] Work Phone: Potassium measurement [facility] End: 05-02-2023 Radiologic exam chest 2 views XR CHEST 2V FRONTAL/LAT Radiology Routine Acute cough Shortness of breath 1 Occurrences starting 04/02/2022 until 05/02/2023 [facility] Work Phone: Comment on above: 1 Occurrences starti ng 04/02/2022 until 05/02/2023 Radiologic exam ches t 2 views XR CHEST 2V FRONTAL/LAT Radiology Routine Acute cough Shortness of breath 04/02/2022 4:50 PM EDT [facility] Work Phone: End: 05-10-2023 Radiologic exam chest 2 views XR CHEST 2V FRONTAL/LAT Radiology Routine Acute cough 1 Occurrences starting 04/10/2022 until 05/10/2023 [facility] Work Phone: Comment on above: 1 Occurrences starti ng 04/10/2022 until 05/10/2023 Radiologic exam ches t 2 views XR CHEST 2V FRONTAL/LAT Radiology Routine Acute cough 04/10/2022 11:46 AM EDT [facility] Work Phone: Red blood cell count [facility] Work Phone: Red cell distributio n width determination [facility] Work Phone: Serum chloride measurement [facility] Sodium [Moles/volume ] in Serum or Plasma [facility] Work Phone: Sodium measurement [facility] Thyroid stimulating hormone measurement [facility] End: 12-10-2022 Thyrotropin [Units/volume] in Serum or Plasma TSH BLD Lab Routine Hypothyroidism, unspecified type Every 3 months for 24 Occurrences starting 12/10/2021 until 12/10/2022 [facility] Work Phone: Comment on above: Every 3 months for 2 4 Occurrences starting 12/10/2021 until 12/10/2022 Triglycerides measurement [facility] Work Phone: Troponin I measurement [facility] Work Phone: Troponin T.cardiac [Mass/volume] in Serum or Plasma by High sensitivity method [facility] UA DIP, URINE (POC) UA DIP, URIN E (POC) Lab Routine Dysuria Ordered: 10/08/2024 [facility] Work Phone: Comment on above: Ordered: 10/08/2024 Urea nitrogen [Mass/volume] in Serum or Plasma [facility] Work Phone: Urea nitrogen [Mass/volume] in Serum or Plasma [facility] limited [facility] End: 08-02-2025 US.doppler Extremity arteries - bilateral for physiologic artery study PVR ANK PRESS [facility] Vascular Lab Routine Exercise-induced leg fatigue 1 Occurrences starting 08/02/2024 until 08/02/2025 [facility] Work Phone: Comment on above: 1 Occurrences starti ng 08/02/2024 until 08/02/2025 End: 08-02-2025 US.doppler Extremity arteries - bilateral for physiologic artery study at rest and with exercise PVR ANK PRESS W/EXC [facility] Vascular Lab Routine Exercise-induced leg fatigue 1 Occurrences starting 08/02/2024 until 08/02/2025 [facility] Comment on above: 1 Occurrences starti ng 08/02/2024 until 08/02/2025 Vitamin D, 25-hydrox y measurement [facility] Vitamin D, 25-hydrox y measurement [facility] VLDL cholesterol measurement [facility] Work Phone: XR Chest PA and Lateral XR CHEST 2V FRONTAL/LAT Radiology Routine Acute cough Dyspnea, unspecified type Abnormal breath sounds 12/12/2024 3:21 PM EDT [facility] Work Phone: End: 01-11-2026 XR Chest PA and Lateral XR CHEST 2V FRONTAL/LAT Radiology Routine Acute cough Dyspnea, unspecified type Abnormal breath sounds 1 Occurrences starting 12/12/2024 until 01/11/2026 [facility] Work Phone: Comment on above: 1 Occurrences starti ng 12/12/2024 until 01/11/2026 [facility] Immunizations Immunization Date Immunization Notes Care Provider Michelle novak 04-09-2023 influenza (HD-IIV4) vaccine, age 65+ yr, high dose, quadrivalent, PF (FLUZONE HIGH-DOSE) Silvio Drake APRN.CNP Work Phone: [facility] 04-09-2023 influenza virus vacc ine, unspecified formulation Anay Schuler MD Work Phone: [facility] 04-21-2022 influenza, high-dose , quadrivalent vaccine (FLUZONE HIGH DOSE QUADRIVALENT) Anay Schuler MD Work Phone: [facility] Work Phone: 04-21-2022 influenza virus vacc ine, unspecified formulation Anay Schuler MD Work Phone: [facility] 04-02-2021 influenza (aIIV4) vaccine, age 65+ yr, quadrivalent, PF (FLUAD QUAD) Brittani Oswald MA [facility] Work Phone: 04-02-2021 influenza, high dose seasonal, preservative-free Anay Schuler MD Work Phone: [facility] 08-24-2020 COVID-19 vaccine, fu ll dose (MODERNA) Anay Schuler MD Work Phone: [facility] Work Phone: 07-27-2020 COVID-19 vaccine, fu ll dose (MODERNA) Anay Schuler MD Work Phone: [facility] Work Phone: 03-08-2020 influenza, injectabl e, quadrivalent, preservative free Anay Schuler MD Work Phone: [facility] Work Phone: 03-08-2020 pneumococcal polysaccharide vaccine, 23 valent Anay Schuler MD Work Phone: [facility] Work Phone: 03-31-2019 Seasonal trivalent influenza vaccine, adjuvanted, preservative free Brittani Oswald MA [facility] Work Phone: 03-30-2018 Seasonal trivalent influenza vaccine, adjuvanted, preservative free Brittani Oswald MA [facility] Work Phone: 03-30-2017 influenza, high dose seasonal, preservative-free Anay Schuler MD Work Phone: [facility] Work Phone: 03-30-2017 influenza, injectabl e, quadrivalent, preservative free Brittani Oswald [facility] Work Phone: 03-30-2017 influenza, seasonal, injectable Dr. Anay Schuler Work Phone: [facility] 03-30-2017 influenza, seasonal, injectable, preservative free Anay Schuler MD Work Phone: [facility] Work Phone: 03-26-2016 influenza, high dose seasonal, preservative-free Anay Schuler MD Work Phone: [facility] Work Phone: 01-28-2016 pneumococcal polysaccharide vaccine, 23 valent Anay Schuler MD Work Phone: [facility] Work Phone: 04-25-2015 pneumococcal conjuga te vaccine, 13 valent Anay Schuler MD Work Phone: [facility] Work Phone: 03-31-2014 influenza virus vacc ine, unspecified formulation Anay Schuler MD Work Phone: [facility] 06-07-2013 tetanus toxoid, redu dionicio diphtheria toxoid, and acellular pertussis vaccine, adsorbed Anay Schuler MD Work Phone: [facility] 07-15-2011 influenza virus vacc ine, unspecified formulation Anay Schuler MD Work Phone: [facility] 04-08-2010 influenza virus vacc ine, unspecified formulation Anay Schuler MD Work Phone: [facility] Work Phone: 07-30-2000 pneumococcal polysaccharide vaccine, 23 valent Anay Schuler MD Work Phone: [facility] Work Phone: 10-28-1995 diphtheria and tetan us toxoids, adsorbed for pediatric use Anay Schuler MD Work Phone: [facility] Work Phone: Payers Date Payer Category Payer Self-pay [id number] 2023 Medicare (Managed Care) [employer] [id number] 2021 Medicare [employer] MEDICARE [employer] MEDICARE PPO [id number] 2021-Present [phone] [place] [address] [id number] 2021 Medicare [id number] Medicare [id number] Unknown [id number] 2.16.840.1.549461.3.579. 2.462 Unknown [id number] 2.16.840.1.017353.3.579. 2.462 Unknown [id number] 2.16.840.1.933682.3.579. 2.462 Unknown [id number] 2.16.840.1.186055.3.579. 2.462 Unknown [id number] 2.16.840.1.595663.3.579. 2.462 Unknown [id number] 2.16.840.1.009972.3.579. 2.462 Unknown [id number] 2.16.840.1.804293.3.579. 2.462 Unknown [id number] 2.16.840.1.758472.3.579. 2.462 Unknown [id number] 2.16.840.1.516401.3.579. 2.462 Unknown [id number] 2.16.840.1.392534.3.579. 2.462 Unknown [id number] 2.16.840.1.470646.3.579. 2.462 Unknown [id number] 2.16.840.1.205730.3.579. 2.462 Unknown [id number] 2.16.840.1.020825.3.579. 2.462 Unknown [id number] 2.16840.1.135947.3.579. 2.462 Unknown [id number] 2.16.840.1.122815.3.579. 2.462 Unknown [id number] 2.16.840.1.644554.3.579. 2.462 Unknown [id number] 2.16.840.1.725167.3.579. 2.462 Unknown [id number] 2.16.840.1.179719.3.579. 2.462 Unknown [id number] 2.16.840.1.226130.3.579. 2.462 Unknown [id number] 2.16.840.1.204043.3.579. 2.462 Unknown [id number] 2.16.840.1.855171.3.579. 2.462 Unknown [id number] 2.16840.1.867529.3.579. 2.462 Unknown [id number] 2.16.840.1.797855.3.579. 2.462 Unknown [id number] 2.16840.1.669372.3.579. 2.462 Unknown [id number] 2.16840.1.041102.3.579. 2.462 Unknown [id number] 2.16840.1.202509.3.579. 2.462 Unknown [id number] 2.16840.1.516396.3.579. 2.462 Unknown [id number] 2.16840.1.664050.3.579. 2.462 Unknown [id number] 2.16840.1.603218.3.579. 2.462 Unknown [id number] 2.16.840.1.872702.3.579. 2.462 Unknown [id number] 2.16.840.1.224190.3.579. 2.462 Unknown [id number] 2.16.840.1.598946.3.579. 2.462 Unknown [id number] 2.16840.1.091993.3.579. 2.462 Unknown [id number] 2.16840.1.219561.3.579. 2.462 Unknown [id number] 2.16840.1.060798.3.579. 2.462 Unknown [id number] 2.16.840.1.979225.3.579. 2.462 Unknown [id number] 2.16.840.1.739857.3.579. 2.462 Unknown [id number] 2..840.1.976678.3.579. 2.462 Unknown [id number] 2.840.1.776668.3.579. 2.462 Social History Date Type Detail Facility Start: 02-21-2022 End: 11-19-2024 Tobacco smoking status NHIS Ex-smoker [facility] Start: 07-06-1971 End: 07-06-1976 History of tobacco use Current smoker [facility] Start: 06-11-2021 End: 01-03-2025 Alcohol intake Current non-drinker of alcohol (finding) [facility] Start: 1935 Sex Assigned At Not on file [facility] Start: 08-26-2020 End: 05-07-2022 Exposure to SARS-CoV-2 (event) Not sure [facility] Work Phone: Start: 02-13-2022 End: 08-20-2023 Tobacco smoking status [facility] Unknown if ever smoked [facility] Start: 1935 Sex Assigned At Female W [facility] Start: 07-06-1971 End: 07-06-1976 History of tobacco use Cigarette Smoker [facility] Work Phone: Start: 02-21-2022 End: 05-30-2024 Tobacco use and exposure Smokeless tobacco non-user [facility] Work Phone: Start: 02-21-2022 Tobacco Comment Quit 1970's 4- 5 cig per day [facility] Start: 03-11-2022 End: 04-02-2022 Exposure to SARS-CoV-2 (event) Unable to assess [facility] Start: 01-07-2023 End: 08-02-2024 History of Social function [facility] Work Phone: Start: 01-07-2023 End: 08-02-2024 Tobacco use panel [facility] Work Phone: Adult Depression Screening Assessment 0 [facility] Work Phone: Start: 02-04-2018 None [facility] Start: 02-04-2018 Spouse/ Signif icant Other [facility] Start: 02-05-2018 Non-smoker [facility] Start: 10-11-2024 End: 11-02-2024 Sex Female (finding) [facility] (I/We) worried whether (my/our) food would run out before (I/we) got money to buy more. Never true [facility] In the past 12 months, was there a time when you were not able to pay the mortgage or rent on time? No [facility] NEGATED: Highlighted row [facility] Medical Equipment Procedure Code Equipment Code Equipment Origin al Text Equipment Identifier Dates [id number] Implant - [id number] Start: 12-14-2012 Comment on above: Description: 6.6 CM PARIETEX COMPOSITE VENTRAL PATCH 1.25MM [place] [employer]IRE FDA Start: 10-14-2017 2.4MM VA LOCKING SCREW FDA Start: 10-14-2017 2.4MM VA LOCKING SCREW FDA Start: 10-14-2017 2.4MM VA LOCKING SCREW FDA Start: 10-14-2017 2.4MM VA LOCKING SCREW FDA Start: 10-14-2017 2.4MM VA-LCP 2 COLMN DIRA PLAT FDA Start: 10-14-2017 2.4MMMVA LOCKING SCREW FDA Start: 10-14-2017 1.25MM [place] [employer] FDA Start: 10-14-2017 2.4MM VA LOCKING SCREW FDA Start: 10-14-2017 2.4MM VA LOCKING SCREW FDA Start: 10-14-2017 2.4MM VA LOCKING SCREW FDA Start: 10-14-2017 2.4MM VA LOCKING SCREW FDA Start: 10-14-2017 2.4MM VA-LCP 2 COLMN DIRA PLAT FDA Start: 10-14-2017 2.4MMMVA LOCKING SCREW FDA Start: 10-14-2017 1.25MM [place] [employer] FDA Start: 10-14-2017 2.4MM VA LOCKING SCREW FDA Start: 10-14-2017 2.4MM VA LOCKING SCREW FDA Start: 10-14-2017 2.4MM VA LOCKING SCREW FDA Start: 10-14-2017 2.4MM VA LOCKING SCREW FDA Start: 10-14-2017 2.4MM VA-LCP 2 COLMN DIRA PLAT FDA Start: 10-14-2017 2.4MMMVA LOCKING SCREW FDA Start: 10-14-2017 1.25MM [place] [employer] FDA Start: 10-14-2017 2.4MM VA LOCKING SCREW FDA Start: 10-14-2017 2.4MM VA LOCKING SCREW FDA Start: 10-14-2017 2.4MM VA LOCKING SCREW FDA Start: 10-14-2017 2.4MM VA LOCKING SCREW FDA Start: 10-14-2017 2.4MM VA-LCP 2 COLMN DIRA PLAT FDA Start: 10-14-2017 2.4MMMVA LOCKING SCREW FDA Start: 10-14-2017 1.25MM [place] [employer] FDA Start: 10-14-2017 2.4MM VA LOCKING SCREW FDA Start: 10-14-2017 2.4MM VA LOCKING SCREW FDA Start: 10-14-2017 2.4MM VA LOCKING SCREW FDA Start: 10-14-2017 2.4MM VA LOCKING SCREW FDA Start: 10-14-2017 2.4MM VA-LCP 2 COLMN DIRA PLAT FDA Start: 10-14-2017 2.4MMMVA LOCKING SCREW FDA Start: 10-14-2017 1.25MM [place] [employer] FDA Start: 10-14-2017 2.4MM VA LOCKING SCREW FDA Start: 10-14-2017 2.4MM VA LOCKING SCREW FDA Start: 10-14-2017 2.4MM VA LOCKING SCREW FDA Start: 10-14-2017 2.4MM VA LOCKING SCREW FDA Start: 10-14-2017 2.4MM VA-LCP 2 COLMN DIRA PLAT FDA Start: 10-14-2017 2.4MMMVA LOCKING SCREW FDA Start: 10-14-2017 1.25MM [place] [employer] FDA Start: 10-14-2017 2.4MM VA LOCKING SCREW FDA Start: 10-14-2017 2.4MM VA LOCKING SCREW FDA Start: 10-14-2017 2.4MM VA LOCKING SCREW FDA Start: 10-14-2017 2.4MM VA LOCKING SCREW FDA Start: 10-14-2017 2.4MM VA-LCP 2 COLMN DIRA PLAT FDA Start: 10-14-2017 2.4MMMVA LOCKING SCREW FDA Start: 10-14-2017 1.25MM [place] [employer] FDA Start: 10-14-2017 2.4MM VA LOCKING SCREW FDA Start: 10-14-2017 2.4MM VA LOCKING SCREW FDA Start: 10-14-2017 2.4MM VA LOCKING SCREW FDA Start: 10-14-2017 2.4MM VA LOCKING SCREW FDA Start: 10-14-2017 2.4MM VA-LCP 2 COLMN DIRA PLAT FDA Start: 10-14-2017 2.4MMMVA LOCKING SCREW FDA Start: 10-14-2017 1.25MM [place] [employer] FDA Start: 10-14-2017 2.4MM VA LOCKING SCREW FDA Start: 10-14-2017 2.4MM VA LOCKING SCREW FDA Start: 10-14-2017 2.4MM VA LOCKING SCREW FDA Start: 10-14-2017 2.4MM VA LOCKING SCREW FDA Start: 10-14-2017 2.4MM VA-LCP 2 COLMN DIRA PLAT FDA Start: 10-14-2017 2.4MMMVA LOCKING SCREW FDA Start: 10-14-2017 1.25MM [place] [employer] FDA Start: 10-14-2017 2.4MM VA LOCKING SCREW FDA Start: 10-14-2017 2.4MM VA LOCKING SCREW FDA Start: 10-14-2017 2.4MM VA LOCKING SCREW FDA Start: 10-14-2017 2.4MM VA LOCKING SCREW FDA Start: 10-14-2017 2.4MM VA-LCP 2 COLMN DIRA PLAT FDA Start: 10-14-2017 2.4MMMVA LOCKING SCREW FDA Start: 10-14-2017 1.25MM [place] [employer] FDA Start: 10-14-2017 2.4MM VA LOCKING SCREW FDA Start: 10-14-2017 2.4MM VA LOCKING SCREW FDA Start: 10-14-2017 2.4MM VA LOCKING SCREW FDA Start: 10-14-2017 2.4MM VA LOCKING SCREW FDA Start: 10-14-2017 2.4MM VA-LCP 2 COLMN DIRA PLAT FDA Start: 10-14-2017 2.4MMMVA LOCKING SCREW FDA Start: 10-14-2017 1.25MM [place] [employer] FDA Start: 10-14-2017 2.4MM VA LOCKING SCREW FDA Start: 10-14-2017 2.4MM VA LOCKING SCREW FDA Start: 10-14-2017 2.4MM VA LOCKING SCREW FDA Start: 10-14-2017 2.4MM VA LOCKING SCREW FDA Start: 10-14-2017 2.4MM VA-LCP 2 COLMN DIRA PLAT FDA Start: 10-14-2017 2.4MMMVA LOCKING SCREW FDA Start: 10-14-2017 1.25MM [place] [employer] FDA Start: 10-14-2017 2.4MM VA LOCKING SCREW FDA Start: 10-14-2017 2.4MM VA LOCKING SCREW FDA Start: 10-14-2017 2.4MM VA LOCKING SCREW FDA Start: 10-14-2017 2.4MM VA LOCKING SCREW FDA Start: 10-14-2017 2.4MM VA-LCP 2 COLMN DIRA PLAT FDA Start: 10-14-2017 2.4MMMVA LOCKING SCREW FDA Start: 10-14-2017 1.25MM [place] [employer] FDA Start: 10-14-2017 2.4MM VA LOCKING SCREW FDA Start: 10-14-2017 2.4MM VA LOCKING SCREW FDA Start: 10-14-2017 2.4MM VA LOCKING SCREW FDA Start: 10-14-2017 2.4MM VA LOCKING SCREW FDA Start: 10-14-2017 2.4MM VA-LCP 2 COLMN DIRA PLAT FDA Start: 10-14-2017 2.4MMMVA LOCKING SCREW FDA Start: 10-14-2017 1.25MM [place] [employer] FDA Start: 10-14-2017 2.4MM VA LOCKING SCREW FDA Start: 10-14-2017 2.4MM VA LOCKING SCREW FDA Start: 10-14-2017 2.4MM VA LOCKING SCREW FDA Start: 10-14-2017 2.4MM VA LOCKING SCREW FDA Start: 10-14-2017 2.4MM VA-LCP 2 COLMN DIRA PLAT FDA Start: 10-14-2017 2.4MMMVA LOCKING SCREW FDA Start: 10-14-2017 1.25MM [place] [employer] FDA Start: 10-14-2017 2.4MM VA LOCKING SCREW FDA Start: 10-14-2017 2.4MM VA LOCKING SCREW FDA Start: 10-14-2017 2.4MM VA LOCKING SCREW FDA Start: 10-14-2017 2.4MM VA LOCKING SCREW FDA Start: 10-14-2017 2.4MM VA-LCP 2 COLMN DIRA PLAT FDA Start: 10-14-2017 2.4MMMVA LOCKING SCREW FDA Start: 10-14-2017 1.25MM [place] [employer] FDA Start: 10-14-2017 2.4MM VA LOCKING SCREW FDA Start: 10-14-2017 2.4MM VA LOCKING SCREW FDA Start: 10-14-2017 2.4MM VA LOCKING SCREW FDA Start: 10-14-2017 2.4MM VA LOCKING SCREW FDA Start: 10-14-2017 2.4MM VA-LCP 2 COLMN DIRA PLAT FDA Start: 10-14-2017 2.4MMMVA LOCKING SCREW FDA Start: 10-14-2017 1.25MM [place] [employer] FDA Start: 10-14-2017 2.4MM VA LOCKING SCREW FDA Start: 10-14-2017 2.4MM VA LOCKING SCREW FDA Start: 10-14-2017 2.4MM VA LOCKING SCREW FDA Start: 10-14-2017 2.4MM VA LOCKING SCREW FDA Start: 10-14-2017 2.4MM VA-LCP 2 COLMN DIRA PLAT FDA Start: 10-14-2017 2.4MMMVA LOCKING SCREW FDA Start: 10-14-2017 1.25MM [place] [employer] FDA Start: 10-14-2017 2.4MM VA LOCKING SCREW FDA Start: 10-14-2017 2.4MM VA LOCKING SCREW FDA Start: 10-14-2017 2.4MM VA LOCKING SCREW FDA Start: 10-14-2017 2.4MM VA LOCKING SCREW FDA Start: 10-14-2017 2.4MM VA-LCP 2 COL[place] DIRA PLAT FDA Start: 10-14-2017 2.4MMMVA LOCKING SCREW FDA Start: 10-14-2017 1.25MM [place] [employer] FDA Start: 10-14-2017 2.4MM VA LOCKING SCREW FDA Start: 10-14-2017 2.4MM VA LOCKING SCREW FDA Start: 10-14-2017 2.4MM VA LOCKING SCREW FDA Start: 10-14-2017 2.4MM VA LOCKING SCREW FDA Start: 10-14-2017 2.4MM VA-LCP 2 COLMN DIRA PLAT FDA Start: 10-14-2017 2.4MMMVA LOCKING SCREW FDA Start: 10-14-2017 1.25MM [place] [employer] FDA Start: 10-14-2017 2.4MM VA LOCKING SCREW FDA Start: 10-14-2017 2.4MM VA LOCKING SCREW FDA Start: 10-14-2017 2.4MM VA LOCKING SCREW FDA Start: 10-14-2017 2.4MM VA LOCKING SCREW FDA Start: 10-14-2017 2.4MM VA-LCP 2 COL[place] DIRA PLAT FDA Start: 10-14-2017 2.4MMMVA LOCKING SCREW FDA Start: 10-14-2017 1.25MM [place] [employer] FDA Start: 10-14-2017 2.4MM VA LOCKING SCREW FDA Start: 10-14-2017 2.4MM VA LOCKING SCREW FDA Start: 10-14-2017 2.4MM VA LOCKING SCREW FDA Start: 10-14-2017 2.4MM VA LOCKING SCREW FDA Start: 10-14-2017 2.4MM VA-LCP 2 COL[place] DIRA PLAT FDA Start: 10-14-2017 2.4MMMVA LOCKING SCREW FDA Start: 10-14-2017 FDA Start: 10-14-2017 FDA Start: 10-14-2017 FDA Start: 10-14-2017 FDA Start: 10-14-2017 FDA Start: 10-14-2017 FDA Start: 10-14-2017 FDA Start: 10-14-2017 1.25MM [place] [employer] FDA Start: 10-14-2017 2.4MM VA LOCKING SCREW FDA Start: 10-14-2017 2.4MM VA LOCKING SCREW FDA Start: 10-14-2017 2.4MM VA LOCKING SCREW FDA Start: 10-14-2017 2.4MM VA LOCKING SCREW FDA Start: 10-14-2017 2.4MM VA-LCP 2 COLMN DIRA PLAT FDA Start: 10-14-2017 2.4MMMVA LOCKING SCREW FDA Start: 10-14-2017 FDA Start: 10-14-2017 FDA Start: 10-14-2017 FDA Start: 10-14-2017 FDA Start: 10-14-2017 FDA Start: 10-14-2017 FDA Start: 10-14-2017 FDA Start: 10-14-2017 FDA Start: 10-14-2017 FDA Start: 10-14-2017 FDA Start: 10-14-2017 FDA Start: 10-14-2017 FDA Start: 10-14-2017 FDA Start: 10-14-2017 FDA Start: 10-14-2017 FDA Start: 10-14-2017 FDA Start: 10-14-2017 FDA Start: 10-14-2017 FDA Start: 10-14-2017 FDA Start: 10-14-2017 FDA Start: 10-14-2017 FDA Start: 10-14-2017 FDA Start: 10-14-2017 FDA Start: 10-14-2017 FDA Start: 10-14-2017 FDA Start: 10-14-2017 FDA Start: 10-14-2017 FDA Start: 10-14-2017 FDA Start: 10-14-2017 FDA Start: 10-14-2017 FDA Start: 10-14-2017 FDA Start: 10-14-2017 FDA Start: 10-14-2017 FDA Start: 10-14-2017 FDA Start: 10-14-2017 FDA Start: 10-14-2017 FDA Start: 10-14-2017 FDA Start: 10-14-2017 FDA Start: 10-14-2017 FDA Start: 10-14-2017 FDA Start: 10-14-2017 FDA Start: 10-14-2017 FDA Start: 10-14-2017 FDA Start: 10-14-2017 FDA Start: 10-14-2017 FDA Start: 10-14-2017 FDA Start: 10-14-2017 FDA Start: 10-14-2017 FDA Start: 10-14-2017 FDA Start: 10-14-2017 1.25MM [place] [employer] FDA Start: 10-14-2017 2.4MM VA LOCKING SCREW FDA Start: 10-14-2017 2.4MM VA LOCKING SCREW FDA Start: 10-14-2017 2.4MM VA LOCKING SCREW FDA Start: 10-14-2017 2.4MM VA LOCKING SCREW FDA Start: 10-14-2017 2.4MM VA-LCP 2 COLMN DIRA PLAT FDA Start: 10-14-2017 2.4MMMVA LOCKING SCREW FDA Start: 10-14-2017 1.25MM [place] [employer] FDA Start: 10-14-2017 2.4MM VA LOCKING SCREW FDA Start: 10-14-2017 2.4MM VA LOCKING SCREW FDA Start: 10-14-2017 2.4MM VA LOCKING SCREW FDA Start: 10-14-2017 2.4MM VA LOCKING SCREW FDA Start: 10-14-2017 2.4MM VA-LCP 2 COLMN DIRA PLAT FDA Start: 10-14-2017 2.4MMMVA LOCKING SCREW FDA Start: 10-14-2017 Goals Date Patient Goal Desired Activity /State Functional Status Date Assessment Result Facility 11-03-2024 Functional status Ambulates;Chair [facility] Work Phone: 11-02-2024 Functional status Ambulates [facility] Work Phone: 10-13-2024 Functional status Ambulates;Dangle Feet W [facility] Work Phone: 10-12-2024 Functional status Well [facility] Work Phone: 07-16-2023 Functional status Ambulates [facility] Work Phone: 05-05-2022 Functional status Ambulates;Chair [facility] Work Phone: 05-04-2022 Functional status None [facility] Work Phone: 02-23-2022 Functional status Ambulates [facility] Work Phone: 11-07-2014 Are you deaf, or do you have serious difficulty hearing No 11/07/2014 9:56 AM Chacha Qureshi LPN No [facility] 11-07-2014 Are you blind, or do you have serious difficulty seeing, even when wearing glasses No 11/07/2014 9:56 AM Chacha Qureshi LPN [facility] 11-07-2014 Do you have serious difficulty walking or climbing stairs No 11/07/2014 9:56 AM Chacha Qureshi LPN No [facility] 11-07-2014 Do you have difficul ty dressing or bathing No 11/07/2014 9:56 AM Chacha Qureshi LPN No [facility] 11-07-2014 Because of a physica l, mental, or emotional condition, do you have difficulty doing errands alone such as visiting a physician's office or shopping No 11/07/2014 9:56 AM Chacha Qureshi LPN No [facility] Mental Status Date Assessment Result Facility 11-19-2024 Cognitive function Awake;Alert;A ppropriate;Fo colettews Commands [facility] Work Phone: 11-03-2024 Cognitive function Voice/Name [facility] Work Phone: 11-02-2024 Cognitive function Voice/Name [facility] Work Phone: 10-13-2024 Cognitive function Voice/Name [facility] Work Phone: 10-11-2024 Cognitive function Voice/Name [facility] Work Phone: 08-26-2024 Cognitive function Awake;Alert;A ppropriate;Fo colettews [facility] Work Phone: 07-16-2023 Cognitive function Voice/Name [facility] Work Phone: 07-13-2023 Cognitive function Level Of Cons ciousness Drowsy [facility] Work Phone: 10-31-2022 Cognitive function Touch/Shaking [facility] Work Phone: 06-04-2022 Cognitive function Voice/Name [facility] Work Phone: 05-05-2022 Cognitive function Voice/Name [facility] Work Phone: 05-01-2022 Cognitive function Awake;Alert;Lethargic [facility] Work Phone: 04-24-2022 Cognitive function Level Of Cons ciousness Awake;Alert;Appropriate [facility] Work Phone: 02-23-2022 Cognitive function Voice/Name [facility] Work Phone: 02-21-2022 Cognitive function Level Of Cons ciousness Awake;Alert;Appropriate;Fo llows Commands [facility] Work Phone: 11-07-2014 Because of a physica l, mental, or emotional condition, do you have serious difficulty concentrating, remembering, or making decisions No 11/07/2014 9:56 AM EDT Chacha Juarez LPN No [facility] Clinical Notes 12-14-2012 to 01-03-2025 Anay Schuler MD - 01/03/2025 4:32 PM EDTPatient InstructionsTelephone Encounter - Brianne Toribio RN - 01/02/2025 11:22 AM Silvio Barron APRN.DARSHAN - 12/21/2024 2:10 PM EDTPatient Instructions Note Date & Type Note Facility 01-03-2025 Note HNO ID: [id number] Author: ANAY SCHULER MD Service: ? Author Type: Physician Type: Progress Notes Filed: 01/03/2025 16:33 Note Text: Reason for Visit Follow up HPI Reinier Elizabeth is a 89-year-old female with a history of A-fib, CHF, and hypothyroidism, presenting for a 2-month follow-up. Reinier is accompanied by her daughter, who is providing additional history. She is currently on Xarelto and amiodarone, which was recently reduced to 100 mg once daily approximately 2 weeks ago. Since the reduction, Reinier reports feeling better and has been able to increase her physical activity, including walking outside, cooking, and doing laundry. She also notes an improvement in her appetite, which had been poor during a recent hospital stay and subsequent antibiotic treatment for a sinus infection and cough. Her daughter reports that her blood pressure has improved over the last 2 weeks. Reinier has a history of a leg fracture several years ago, and her daughter notes that her left leg tends to swell more than her right. She has been elevating her feet to manage the swelling and has been doing more exercises, even while sitting. She denies any recent DVTs. Recent lab results show a hemoglobin level of 10.8 g/dL, which is slightly lower than previous readings. A stool test for occult blood was negative, and iron levels were within normal limits. Thyroid function tests showed a slight elevation, but Reinier denies missing any doses of her thyroid medication. Social History Tobacco Use Smoking status: Former Current packs/day: 0.00 Types: Cigarettes Start date: 07/06/1971 Quit date: 07/06/1976 Years since quittin.5 Smokeless tobacco: Never Tobacco comments: Quit 4-5 cig per day Vaping Use Vaping status: Never Used Substance Use Topics Alcohol use: No Drug use: No Past medical history, appointments, medications, allergies reviewed. Pertinent Lab/Diagnostic Studies are reviewed and discussed today Current Outpatient Medications: hydrALAZINE (APRESOLINE) 50 mg tablet loratadine (CLARITIN) 10 mg tablet benzonatate (TESSALON PERLE) 100 mg capsule omeprazole (PRILOSEC) 40 mg capsule levothyroxine (LEVOXYL) 25 mcg tablet carvedilol (COREG) 3.125 mg tablet netarsudil-latanoprost (ROCKLATAN) 0.02-0.005 % ophthalmic solution ondansetron (ZOFRAN) 4 mg tablet losartan (COZAAR) 50 mg tablet atorvastatin (LIPITOR) 20 mg tablet cyanocobalamin, vitamin B-12, (VITAMIN B12 ORAL) denosumab (PROLIA SUBCUTANEOUS) furosemide (LASIX) 20 mg tablet ferrous sulfate 325 mg (65 mg iron) tablet [employer] magdalena XARELTO 15 mg tablet brimonidine (ALPHAGAN P) 0.15 % ophthalmic solution timolol maleate (TIMOPTIC) 0.5 % ophthalmic solution >Zippered Compression Knee High 30-40 mm custom latanoprost (XALATAN) 0.005 % ophthalmic solution Cholecalciferol, Vitamin D3, 2,000 unit ORAL Cap amiodarone (PACERONE) 200 mg tablet vibegron (GEMTESA) 75 mg tablet potassium chloride (K-TAB) 10 mEq tablet Health Maintenance Depression Screening Anxiety Screening Shingrix Vaccine(1 of 2) RSV Vaccine(1 - 1-dose 75+ series) DTaP,Tdap,Td Vaccine(3 - Td or Tdap) Covid-19 Vaccine( season) Advance Directive Discussion Medicare Advantage Annual Wellness Visit Bone Density Screening@ Review Of Systems Ears/Nose/Mouth/Throat: (-) nasal congestion Cardiovascular: (+) leg swelling Respiratory: (-) cough Gastrointestinal: (+) decreased appetite Physical Exam BP 164/65 Pulse (!) 58 Resp 16 Wt 58.5 kg (129 lb) BMI 23.59 kg/m? GENERAL: NAD, alert and oriented. SKIN: Unremarkable, no rash or skin lesions. HEAD: Normocephalic. EYES: PERRLA, EOMI, conjunctiva clear. LUNGS: Clear to auscultation bilaterally, no wheezes/rhonchi/rales. HEART: Regular rate and rhythm, no murmurs. No ectopy. EXTREMITIES: Normal, no deformities, no skin discoloration, no edema. NEURO: Awake, alert and oriented x3, cranial nerves II-XII grossly intact, normal gait, no involuntary motions. Labs: - Hemoglobin: 10.8 g/dL (slightly low) - Thyroid function test: Slightly elevated thyroid levels - Iron levels: Normal - Stool occult blood test: Negative Assessment and Plan 1. Hypothyroidism, unspecified type (E03.9) TSH levels slightly elevated. Patient denies missing any doses of levothyroxine. Recent illness and amiodarone therapy may contribute to fluctuations in thyroid function. - Continue current levothyroxine dosage. - Advised to take a missed dose the following day along with the scheduled dose. - Monitor thyroid function tests regularly. 2. Essential hypertension (I10) Blood pressure readings have improved over the last two weeks. - Continue current antihypertensive regimen. - Monitor blood pressure at home. 3. Iron deficiency (E61.1) Anemia, unspecified type (D64.9) Hemoglobin level at 10.8 g/dL, slightly lower than previous measurement. R (more content not included)... [facility] 01-03-2025 History of Presen t illness Narrative Reason for Visit Follow up HPI Reinier Elizabeth is a 89-year-old female with a history of A-fib, CHF, and hypothyroidism, presenting for a 2-month follow-up. Reinier is accompanied by her daughter, who is providing additional history. She is currently on Xarelto and amiodarone, which was recently reduced to 100 mg once daily approximately 2 weeks ago. Since the reduction, Reinier reports feeling better and has been able to increase her physical activity, including walking outside, cooking, and doing laundry. She also notes an improvement in her appetite, which had been poor during a recent hospital stay and subsequent antibiotic treatment for a sinus infection and cough. Her daughter reports that her blood pressure has improved over the last 2 weeks. Reinier has a history of a leg fracture several years ago, and her daughter notes that her left leg tends to swell more than her right. She has been elevating her feet to manage the swelling and has been doing more exercises, even while sitting. She denies any recent DVTs. Recent lab results show a hemoglobin level of 10.8 g/dL, which is slightly lower than previous readings. A stool test for occult blood was negative, and iron levels were within normal limits. Thyroid function tests showed a slight elevation, but Reinier denies missing any doses of her thyroid medication. Social History Tobacco Use Smoking status: Former Current packs/day: 0.00 Types: Cigarettes Start date: 07/06/1971 Quit date: 07/06/1976 Years since quittin.5 Smokeless tobacco: Never Tobacco comments: Quit 1969' 4-5 cig per day Vaping Use Vaping status: Never Used Substance Use Topics Alcohol use: No Drug use: No Past medical history, appointments, medications, allergies reviewed. Pertinent Lab/Diagnostic Studies are reviewed and discussed today Current Outpatient Medications: hydrALAZINE (APRESOLINE) 50 mg tablet loratadine (CLARITIN) 10 mg tablet benzonatate (TESSALON PERLE) 100 mg capsule omeprazole (PRILOSEC) 40 mg capsule levothyroxine (LEVOXYL) 25 mcg tablet carvedilol (COREG) 3.125 mg tablet netarsudil-latanoprost (ROCKLATAN) 0.02-0.005 % ophthalmic solution ondansetron (ZOFRAN) 4 mg tablet losartan (COZAAR) 50 mg tablet atorvastatin (LIPITOR) 20 mg tablet cyanocobalamin, vitamin B-12, (VITAMIN B12 ORAL) denosumab (PROLIA SUBCUTANEOUS) furosemide (LASIX) 20 mg tablet ferrous sulfate 325 mg (65 mg iron) tablet [employer] magdalena XARELTO 15 mg tablet brimonidine (ALPHAGAN P) 0.15 % ophthalmic solution timolol maleate (TIMOPTIC) 0.5 % ophthalmic solution >Zippered Compression Knee High 30-40 mm custom latanoprost (XALATAN) 0.005 % ophthalmic solution Cholecalciferol, Vitamin D3, 2,000 unit ORAL Cap amiodarone (PACERONE) 200 mg tablet vibegron (GEMTESA) 75 mg tablet potassium chloride (K-TAB) 10 mEq tablet Health Maintenance Depression Screening Anxiety Screening Shingrix Vaccine(1 of 2) RSV Vaccine(1 - 1-dose 75+ series) DTaP,Tdap,Td Vaccine(3 - Td or Tdap) Covid-19 Vaccine( - season) Advance Directive Discussion Medicare Advantage Annual Wellness Visit Bone Density Screening@ Review Of Systems Ears/Nose/Mouth/Throat: (-) nasal congestion Cardiovascular: (+) leg swelling Respiratory: (-) cough Gastrointestinal: (+) decreased appetite Physical Exam BP 164/65 Pulse (!) 58 Resp 16 Wt 58.5 kg (129 lb) BMI 23.59 kg/m GENERAL: NAD, alert and oriented. SKIN: Unremarkable, no rash or skin lesions. HEAD: Normocephalic. EYES: PERRLA, EOMI, conjunctiva clear. LUNGS: Clear to auscultation bilaterally, no wheezes/rhonchi/rales. HEART: Regular rate and rhythm, no murmurs. No ectopy. EXTREMITIES: Normal, no deformities, no skin discoloration, no edema. NEURO: Awake, alert and oriented x3, cranial nerves II-XII grossly intact, normal gait, no involuntary motions. Labs: - Hemoglobin: 10.8 g/dL (slightly low) - Thyroid function test: Slightly elevated thyroid levels - Iron levels: Normal - Stool occult blood test: Negative Assessment and Plan 1. Hypothyroidism, unspecified type (E03.9) TSH levels slightly elevated. Patient denies missing any doses of levothyroxine. Recent illness and amiodarone therapy may contribute to fluctuations in thyroid function. - Continue current levothyroxine dosage. - Advised to take a missed dose the following day along with the scheduled dose. - Monitor thyroid function tests regularly. 2. Essential hypertension (I10) Blood pressure readings have improved over the last two weeks. - Continue current antihypertensive regimen. - Monitor blood pressure at home. 3. Iron deficiency (E61.1) Anemia, unspecified type (D64.9) Hemoglobin level at 10.8 g/dL, slightly lower than previous measurement. Recent hospitalization with frequent blood draws may have contributed to anemia. Iron levels are within normal range. - Monitor hemoglobin levels. - No iron supplementation needed at this time. 4. Persistent atrial fibrillation (HCC) (I48.19) Currently managed with amiodarone, recently reduced to 100 mg daily. Patient is also on Xarelto. Cardiology follow-up scheduled with Dr. Kingston on Thursday. - Continue amiodarone 100 mg daily. - Continue Xarelto as prescribed. - Follow-up with cardiology to assess the need for ongoing amiodarone therapy. Voice recognition software was used to compose this office note. Please excuse any unintended typographical errors. Recording using [employer] software for draft documentation of the visit was discussed with the patient/authorized account service representative; all questions welcomed and answered. Patient/authorized account service representative agreed to proceed Anay Schuler MD documented in this encounter [facility] 01-03-2025 Instructions Anay Schuler MD - 01/03/2025 2:34 PM EDT We discussed your follow-up care and current health concerns: - Blood Thinner (Xarelto): Continue taking Xarelto as prescribed. Your recent stool test for blood loss was negative, and your iron levels are stable. Your hemoglobin is slightly low at 10.8, but this may be due to blood draws during your recent hospital stay. We will monitor this over time, and no additional treatment is needed at this point. - Thyroid Levels: Your thyroid levels were slightly elevated, which may be related to recent illness or medication adjustments. If you miss a dose of your thyroid medication, take the missed dose the next day along with your regular dose. Continue taking your thyroid medication as prescribed. No changes to your thyroid medication are needed at this time. - Amiodarone (for AFib): Your amiodarone dosage was recently reduced to 100 mg once daily. You have been feeling steadier and more active since this adjustment. Please continue this dosage as prescribed. You will follow up with Dr. Kingston on Thursday to monitor your AFib and medication management. - Congestive Heart Failure and Swelling: Your leg swelling is likely related to your history of a past fracture and possibly arthritis. Keeping your feet elevated and staying active, as you have been doing, can help manage the swelling. Continue your current activity level, including walking and light exercises, as tolerated. - Recent Illness and Recovery: You have recovered from a recent sinus infection and cough, and your appetite has improved. Continue eating regularly to support your recovery. - General Health and Activity: It s great to hear you are feeling better and resuming activities like cooking, light cleaning, and walking. Staying active will help improve your overall health. No additional tests or changes to your medications are needed at this time. Please continue your current care plan and follow up with Dr. Kingston as scheduled. Let us know if you experience any new or worsening symptoms, such as increased swelling, shortness of breath, or changes in your heart rhythm. documented in this encounter [facility] 01-02-2025 Telephone encounter Note The patient has been identified by name and date of : Yes Caregiver verified no other encounters exist for this prescription request: Yes Caregiver confirmed with patient/requestor that no other refills are due, in the near future, with this provider at this time: Yes The last office visit in the department: 12/21/2024 Does the patient have a future office visit with this provider/department: 01/03/2025 Requested Prescriptions Pending Prescriptions Disp Refills hydrALAZINE (APRESOLINE) 50 mg tablet 90 tablet Sig: Take 1 tablet by mouth three times a day. Brianne Toribio RN January 02, 2025 11:23 AM [facility] 01-02-2025 Miscellaneous Notes The patient has been identified by name and date of : Yes Caregiver verified no other encounters exist for this prescription request: Yes Caregiver confirmed with patient/requestor that no other refills are due, in the near future, with this provider at this time: Yes The last office visit in the department: 12/21/2024 Does the patient have a future office visit with this provider/department: 01/03/2025 Requested Prescriptions Pending Prescriptions Disp Refills hydrALAZINE (APRESOLINE) 50 mg tablet 90 tablet Sig: Take 1 tablet by mouth three times a day. Brianne Toribio RN January 02, 2025 11:23 AM documented in this encounter [facility] 12-21-2024 Note HNO ID: [id number] Author: SILVIO DRAKE APRN.BILLING AND ACCOUNTING STAFF ASSISTANT Service: ? Author Type: Nurse Practitioner Type: Progress Notes Filed: 12/21/2024 18:10 Note Text: CC: Patient presents with: 1 week f/u: Cough with congestion HPI Reinier Elizabeth is a 89 year old female who presents today for 1 week follow up after starting doxycycline for cough and congestion. Cough: Patient seen one week ago for cough, congestion, nausea, mild DICKERSON, and tinnitus to right ear. Started on doxycycline. Patient denies tinnitus to right ear, although still experiencing cough congestion, and nausea. Patient states productive cough, previously yellow sputum, currently clear sputum at this time. Endorses wheezing when laying flat. States using incentive spirometer daily at home. States tessalon helps occasionally with cough, and inconsistently using OTC Tussin from [employer]. Denies chest pain, palpitations, vomiting, abdominal pain, fevers, chills, sinus pressure or pain. States 2 days of diarrhea upon starting antibiotic, no episodes since. CXR did show vascular congestion so lasix given daily for 3 days. No longer with mild DICKERSON. Nausea has been present prior to this since starting amiodarone during hospitalization for a-fib. HTN: Ms. Elizabeth denies headache, chest pain, palpitations, dyspnea, and peripheral edema. Patient denies any side effects of her medication(s) and is compliant with their regimen. She does check BP's away from this office with average BP's in the 130s-190s/60s-80s range. Reinier denies regular aerobic exercise. She watches her diet for sodium, low fat and low cholesterol some of the time. Last 3 Encounter BP Readings: Date: BP: 12/21/2024 192/60 12/12/2024 158/92 11/28/2024 152/94 REVIEW OF SYSTEMS General: no fevers, no chills, no night sweats, no recurrent infections, no change in appetite, no change in energy, and no significant changes in weight HEENT: no frequent or significant headaches, no sinus or nasal problems Neck: no lumps, no pain , and no swelling Respiratory: no cough, no shortness of breath, no hemoptysis, Positive for: wheezing when laying flat Cardiovascular: no chest pain, no chest pressure, no palpitations, and no swelling GI: Positive for diarrhea for first two days after starting antibiotic, nausea prior to congestion and cough Neurologic: No headache, weakness, numbness, tingling, neck stiffness, tremor, vertigo, dizziness, memory loss, syncope. PAST MEDICAL HISTORY Diagnosis Date Acquired keratoderma Lichen sclerosis Anemia Anticoagulant long-term use indication: stroke prevention atrial fibrillation At risk for bleeding associated with anticoagulants HAS-BLED score = 2 (age, bleeding) At risk for stroke [id number] = 4 (HTN, age2, female gender) Benign [...] Glaucoma - right eye left eye - [facility] . Dr Gao REPAIR FIRST ABDOMINAL WALL HERNIA 12/14/2012 2cm defect - Parietex Composite ventral patch 6cm STRESS TEST 04/14/2017 PAWAN 02/04/2018 ALLERGIES Macrobid [Nitrofurantoin Monohyd/M-Cryst], Amantadine, Capoten [Captopril], Cephalexin, Erythromycin, Hctz [Thiazides], Ivp Dye [Iodine], and Norvasc [Amlodipine Besylate] MEDICATIONS doxycycline hyclate (VIBRAMYCIN) 100 mg capsule Take 1 capsule by mouth two times a day for 10 days. benzonatate (TESSALON PERLE) 100 mg capsule Take 1 capsule by mouth three times a day as needed. omeprazole (PRILOSEC) 40 mg capsule Take 1 capsule by mouth daily before breakfast. 1/2 hr before meal. levothyroxine (LEVOXYL) 25 mcg tablet Take 1 tablet b (more content not included)... [facility] 12-21-2024 History of Presen t illness Narrative CC: Patient presents with: 1 week f/u: Cough with congestion HPI Reinier Elizabeth is a 89 year old female who presents today for 1 week follow up after starting doxycycline for cough and congestion. Cough: Patient seen one week ago for cough, congestion, nausea, mild DICKERSON, and tinnitus to right ear. Started on doxycycline. Patient denies tinnitus to right ear, although still experiencing cough congestion, and nausea. Patient states productive cough, previously yellow sputum, currently clear sputum at this time. Endorses wheezing when laying flat. States using incentive spirometer daily at home. States tessalon helps occasionally with cough, and inconsistently using OTC Tussin from [employer]. Denies chest pain, palpitations, vomiting, abdominal pain, fevers, chills, sinus pressure or pain. States 2 days of diarrhea upon starting antibiotic, no episodes since. CXR did show vascular congestion so lasix given daily for 3 days. No longer with mild DICKERSON. Nausea has been present prior to this since starting amiodarone during hospitalization for a-fib. HTN: Ms. Elizabeth denies headache, chest pain, palpitations, dyspnea, and peripheral edema. Patient denies any side effects of her medication(s) and is compliant with their regimen. She does check BP's away from this office with average BP's in the 130s-190s/60s-80s range. Reinier denies regular aerobic exercise. She watches her diet for sodium, low fat and low cholesterol some of the time. Last 3 Encounter BP Readings: Date: BP: 12/21/2024 192/60 12/12/2024 158/92 11/28/2024 152/94 REVIEW OF SYSTEMS General: no fevers, no chills, no night sweats, no recurrent infections, no change in appetite, no change in energy, and no significant changes in weight HEENT: no frequent or significant headaches, no sinus or nasal problems Neck: no lumps, no pain , and no swelling Respiratory: no cough, no shortness of breath, no hemoptysis, Positive for: wheezing when laying flat Cardiovascular: no chest pain, no chest pressure, no palpitations, and no swelling GI: Positive for diarrhea for first two days after starting antibiotic, nausea prior to congestion and cough Neurologic: No headache, weakness, numbness, tingling, neck stiffness, tremor, vertigo, dizziness, memory loss, syncope. PAST MEDICAL HISTORY Diagnosis Date Acquired keratoderma Lichen sclerosis Anemia Anticoagulant long-term use indication: stroke prevention atrial fibrillation At risk for bleeding associated with anticoagulants HAS-BLED score = 2 (age, bleeding) At risk for stroke [id number] = 4 (HTN, age2, female gender) Benign [...] May. right eye Jun. left eye - [facility] . Dr Gao REPAIR FIRST ABDOMINAL WALL HERNIA 12/14/2012 2cm defect - Parietex Composite ventral patch 6cm STRESS TEST 04/14/2017 [facility] 02/04/2018 ALLERGIES Macrobid [Nitrofurantoin Monohyd/M-Cryst], Amantadine, Capoten [Captopril], Cephalexin, Erythromycin, Hctz [Thiazides], Ivp Dye [Iodine], and Norvasc [Amlodipine Besylate] MEDICATIONS doxycycline hyclate (VIBRAMYCIN) 100 mg capsule Take 1 capsule by mouth two times a day for 10 days. benzonatate (TESSALON PERLE) 100 mg capsule Take 1 capsule by mouth three times a day as needed. omeprazole (PRILOSEC) 40 mg capsule Take 1 capsule by mouth daily before breakfast. 1/2 hr before meal. levothyroxine (LEVOXYL) 25 mcg tablet Take 1 tablet by mouth once daily. Take on empty stomach. For Thyroid amiodarone (PACERONE) 200 mg tablet Take 1 tablet by mouth once daily. hydrALAZINE (APRESOLINE) 25 mg tablet Take 1 tablet by mouth three times a day. carvedilol (COREG) 3.125 mg tablet Take 1 tablet by mouth two times a day. netarsudil-latanoprost (ROCKLATAN) 0.02-0.005 % ophthalmic solution Use 1 drop in both eyes daily at bedtime. ondansetron (ZOFRAN) 4 mg tablet Take 1 tablet by mouth every 8 hours as needed for nausea/vomiting. losartan (COZAAR) 50 mg tablet Take 1 tablet by mouth two times a day. atorvastatin (LIPITOR) 20 mg tablet Take 1 tablet by mouth every 48 hours. cyanocobalamin, vitamin B-12, (VITAMIN B12 ORAL) Take by mouth once daily. denosumab (PROLIA SUBCUTANEOUS) Inject subcutaneously once every 6 months. furosemide (LASIX) 20 mg tablet Take 1 tablet by mouth every other day. ferrous sulfate 325 mg (65 mg iron) tablet Take 1 tablet by mouth once daily. [employer] magdalena Use 3 [...] IF UNABLE, PLEASE REFER TO [facility]. DX: EDEMA latanoprost (XALATAN) 0.005 % ophthalmic solution 1 Drop daily at bedtime. Cholecalciferol, Vitamin D3, 2,000 unit ORAL Cap Take one(1) tablet two(2) times daily. vibegron (GEMTESA) 75 mg tablet Take 1 tablet by mouth once daily. potassium chloride (K-TAB) 10 mEq tablet Take 1 tablet by mouth twice daily. (Patient taking differently: Take 10 mEq by mouth once daily as needed (with use of Lasix).) FAMILY HISTORY Problem Relation Age of Onset Heart Mother Hypertension Mother Ischemic Heart Disease Mother Hypertension Father Ischemic Heart Disease Father Heart Sister By-pass, Triple Ischemic Heart Disease Sister Heart Brother Stent Ischemic Heart Disease Brother Glaucoma Brother other (Renal Stones) Daughter Heart Maternal Aunt Social History Tobacco Use Smoking status: Former Current packs/day: 0.00 Types: Cigarettes Start date: 07/06/1971 Quit date: 07/06/1976 Years since quittin.4 Smokeless tobacco: Never Tobacco comments: Quit 1969' 4-5 cig per day Vaping Use Vaping status: Never Used Substance Use Topics Alcohol use: No Drug use: No PHYSICAL EXAM BP 192/60 Pulse (!) 56 Resp 16 Wt 58 kg (127 lb 12.8 oz) BMI 23.37 kg/m General Appearance: well appearing, in no acute distress, alert Nose/sinus: No sinus tenderness, negative except for clear rhinorrhea Neck: Thyroid normal size and symmetric without palpable nodules, No adenopathy Lungs: Lung sounds diminished on assessment, dry cough present Heart: RRR without murmur, gallop, or rubs. No ectopy Eyes: Anicteric sclera. Pupils are equally round and reactive to light. Extraocular movements are intact. Oropharynx: clear post nasal drainage noted to posterior pharynx Health maintenance reviewed with patient: Depression Screening Never done Anxiety Screening Never done Shingrix Vaccine(1 of 2) Never done RSV Vaccine(1 - 1-dose 75+ series) Never done DTaP,Tdap,Td Vaccine(3 - Td or Tdap) due on 06/07/2023 Covid-19 Vaccine( - season) due on 02/28/2024 Advance Directive Discussion due on 06/29/2024 Medicare Advantage Annual Wellness Visit Never done Bone Density Screening due on 01/12/2025 Influenza Vaccine(Season Ended) due on 02/27/2025 Diabetes Screening due on 12/13/2027 Pneumococcal Vaccine: 50+ Completed DATA REVIEWED: Most recent labs ASSESSMENT/PLAN: 1. Acute cough - ICD9: 786.2, ICD10: R05.1 (primary diagnosis) Continued but improvement in sputum. Possible from post nasal drainage, has glaucoma so will avoid steroid nasal spray. Will try claritin once daily to decrease this. 2. Dyspnea, unspecified type - ICD9: 786.09, ICD10: R06.00 Improved with doxycycline and lasix. 3. Abnormal breath sounds - ICD9: 786.7, ICD10: R06.89 Diminished - discussed using incentive spirometer to increase deep breaths 4. Essential hypertension - ICD9: 401.9, ICD10: I10 - Uncontrolled - increasing hydralazine bu needs to follow up with cardiology as discussed - keep upcoming appointment with PCP to further evaluate this. - Recommend home blood pressure monitoring, to bring results to next visit - Encouraged sodium restriction, DASH or Mediterranean diet - Recommend regular aerobic exercise 5. Hypertensive kidney disease with stage 3b chronic kidney disease (HCC) - ICD9: 403.90, 585.3, ICD10: I12.9, N18.32 As above - eGFR: 41 Stable - Counseled on avoiding NSAIDs, adequate hydration - HYDRALAZINE 50 MG TABLET 6. Nausea - ICD9: 787.02, ICD10: R11.0 Nausea most likely from amiodarone since this started at same time. Needs to discuss with cardiology to see if there is any other option available for control of her a-fib. Prescription instructions reviewed with patient as applicable. Potential red flag symptoms discussed with the patient. Reviewed appropriate action plan to take if red flag symptoms occur. Patient agreeable to treatment plan. Silvio Drake APRN.CNP documented in this encounter [facility] 12-17-2024 Telephone encounter Note Patient notified. [facility] 12-17-2024 Miscellaneous Notes Patient notified. Good news is no pneumonia but chest xray indicates she needs to take her lasix with potassium daily for the next 3 days. She needs to be weighing herself daily and take this if she has 3-5 pound weight gain. Thank you Silvio Drake APRN.BILLING AND ACCOUNTING STAFF ASSISTANT documented in this encounter [facility] 12-16-2024 Telephone encounter Note Good news is no pneumonia but chest xray indicates she needs to take her lasix with potassium daily for the next 3 days. She needs to be weighing herself daily and take this if she has 3-5 pound weight gain. Thank you Silvio Drake APRN.BILLING AND ACCOUNTING STAFF ASSISTANT [facility] 12-16-2024 Telephone encounter Note Patient notified. [facility] 12-16-2024 Miscellaneous Notes Patient notified. ----- Message from Anay Schuler MD sent at 12/15/2024 4:37 PM EDT ----- devin Nashty, As you know, we are investigating your anemia and is good to know that your vitamin B12 levels are good iron is replenished, the real cause of anemia is not clear but it is possibleThat you are bleeding from your GI tract. I had ordered for the iFOBT, please get that done. I am wondering if sometimes in older people the kidneys can be a reason for having low iron. At this point is not really concerning and we would just follow-up in the future. Let me know if you have questions. Regards, Anay Schuler MD documented in this encounter [facility] 12-16-2024 Telephone encounter Note ----- Message from Anay Schuler MD sent at 12/15/2024 4:37 PM EDT ----- devin Marinelli, As you know, we are investigating your anemia and is good to know that your vitamin B12 levels are good iron is replenished, the real cause of anemia is not clear but it is possibleThat you are bleeding from your GI tract. I had ordered for the iFOBT, please get that done. I am wondering if sometimes in older people the kidneys can be a reason for having low iron. At this point is not really concerning and we would just follow-up in the future. Let me know if you have questions. Regards, Anay Schuler MD [facility] 12-12-2024 History of Presen t illness Narrative Radiology Service Progress Note PATIENT NAME: Reinier Elizabeth DATE OF SERVICE: December 12, 2024 TIME: 3:07 PM PATIENT IDENTITY VERIFICATION COMPLETED USING TWO (2) IDENTIFIERS: Name and Date of confirmed by patient verbally. FALL SCREENING: Has the patient had 2 falls in the last year or 1 fall with injury or currently using an Ambulatory Assistive Device (Walker, Cane, Wheelchair, Crutches, etc.)? Yes, Patient High Risk for Falls What interventions were put in place to prevent falls during this visit? Offered Assistance with Transfers/Clothing and Instructed Patient to Remain Seated (Not on Exam Table) Until Exam PATIENT GENDER DATA: Assigned female at . status: : No status: NO. PATIENT RELEVANT IMPLANT DATA REVIEWED: Not Applicable PATIENT PRESENTS WITH AN IMPLANTABLE OR ATTACHED PROGRAM TECHNICIAN: No RADIOLOGY DEPARTMENT: General X-ray: Exam(s) Completed: Chest X-Ray PERIPHERAL IV DATA: Not applicable SIGNED BY: RT Zain(R) December 12, 2024 3:07 PM documented in this encounter [facility] 12-12-2024 Note HNO ID: [id number] Author: SIMONE PARKINSON RT(Vee) Service: Radiology Author Type: Technologist Type: Progress Notes Filed: 12/12/2024 15:22 Note Text: Radiology Service Progress Note PATIENT NAME: Reinier Elizabeth DATE OF SERVICE: December 12, 2024 TIME: 3:07 PM PATIENT IDENTITY VERIFICATION COMPLETED USING TWO (2) IDENTIFIERS: Name and Date of confirmed by patient verbally. FALL SCREENING: Has the patient had 2 falls in the last year or 1 fall with injury or currently using an Ambulatory Assistive Device (Walker, Cane, Wheelchair, Crutches, etc.)? Yes, Patient High Risk for Falls What interventions were put in place to prevent falls during this visit? Offered Assistance with Transfers/Clothing and Instructed Patient to Remain Seated (Not on Exam Table) Until Exam PATIENT GENDER DATA: Assigned female at . status: : No status: NO. PATIENT RELEVANT IMPLANT DATA REVIEWED: Not Applicable PATIENT PRESENTS WITH AN IMPLANTABLE OR ATTACHED PROGRAM TECHNICIAN: No RADIOLOGY DEPARTMENT: General X-ray: Exam(s) Completed: Chest X-Ray PERIPHERAL IV DATA: Not applicable SIGNED BY: RT Zain(R) December 12, 2024 3:07 PM [facility] 12-12-2024 Instructions Silvio Drake APRN.BILLING AND ACCOUNTING STAFF ASSISTANT - 12/12/2024 2:04 PM EDT - Start doxycycline as prescribed; you may take it with food to reduce stomach upset and consider a probiotic (such as yogurt with live cultures) if you notice stomach irritation. - Take Tessalon Perles (cough suppressant) up to three times a day as needed when coughing spells make it hard to breathe or rest. - Use Zofran for nausea as needed to help prevent vomiting and maintain hydration. - Obtain the chest X-ray as ordered to check for pneumonia. - Drink plenty of fluids and rest as much as possible to support your recovery. - If the chest X-ray shows pneumonia, return to the clinic as directed for further management. - If no pneumonia is found but you do not notice improvement in 3-5 days, call or return for follow-up. - Return to the clinic in 1-2 weeks to recheck your blood pressure, since prolonged coughing may affect it. - If your symptoms worsen at any time (for example, increased shortness of breath, difficulty keeping fluids down, or other new concerns), contact the clinic promptly. documented in this encounter [facility] 12-12-2024 Note HNO ID: [id number] Author: SILVIO DRAKE APRN.DARSHAN Service: ? Author Type: Nurse Practitioner Type: Progress Notes Filed: 12/14/2024 08:49 Note Text: CC: Patient presents with: Head Congestion: Head congestion, productive cough 5 days HPI Reinier Elizabeth is a 89 year old female who presents today for sinus concerns. Recording using [employer] software for draft documentation of the visit was discussed with the patient/authorized account service representative; all questions welcomed and answered. Patient/authorized account service representative agreed to proceed Cough and Congestion: - Symptoms began over a week ago, with worsening over the last 4-5 days. - Initially started with a cough, now accompanied by chest congestion and nasal drainage. - Cough is productive with pale yellow sputum; nasal drainage is white. - Denies wheezing, but reports mild dyspnea, especially with exertion and after coughing spells. - Denies chest pressure, palpitations, or sinus pain. - Reports tinnitus in the right ear, but denies ear pain. - Denies sore throat, headaches, or body aches. - Experiences nausea, with one episode of dry heaves; taking Zofran. - Denies fever, chills, or other systemic symptoms. - Using Tussin cough syrup from [employer], labeled safe for hypertension and diabetes. - Reports feeling wobbly and more tired than usual. - Noted rattling sensation in the chest when coughing. - Recent blood pressure readings have been elevated, with a progressive increase since the onset of symptoms. Also was started on amiodarone 6-8 weeks ago for symptomatic a-fib during a hospitalization. REVIEW OF SYSTEMS See HPI PAST MEDICAL HISTORY Diagnosis Date Acquired keratoderma Lichen sclerosis Anemia Anticoagulant long-term use indication: stroke prevention atrial fibrillation At risk for bleeding associated with anticoagulants HAS-BLED score = 2 (age, bleeding) At risk for stroke [id number] = 4 (HTN, age2, female gender) Benign [...] Glaucoma - right eye left eye - [facility] . Dr Gao REPAIR FIRST ABDOMINAL WALL HERNIA 12/14/2012 2cm defect - Parietex Composite ventral patch 6cm STRESS TEST 04/14/2017 PAWAN 02/04/2018 ALLERGIES Macrobid [Nitrofurantoin Monohyd/M-Cryst], Amantadine, Capoten [Captopril], Cephalexin, Erythromycin, Hctz [Thiazides], Ivp Dye [Iodine], and Norvasc [Amlodipine Besylate] MEDICATIONS doxycycline hyclate (VIBRAMYCIN) 100 mg capsule Take 1 capsule by mouth two times a day for 10 days. benzonatate (TESSALON PERLE) 100 mg capsule Take 1 capsule by mouth three times a day as needed. omeprazole (PRILOSEC) 40 mg capsule Take 1 capsule by mouth daily before breakfast. 1/2 hr before meal. levothyroxine (LEVOXYL) 25 mcg tablet Take 1 tablet by mouth once daily. Take on empty stomach. For Thyroid amiodarone (PACERONE) 200 mg tablet Take 1 tablet by mouth once daily. hydrALAZINE (APRESOLINE) 25 mg tablet Take 1 tablet by mouth three times a day. carvedilol (COREG) 3.125 mg tablet Take 1 tablet by mouth two times a day. netarsudil-latanoprost (ROCKLATAN) 0.02-0.005 % ophthalmic solution Use 1 drop in both eyes daily at bedtime. ondansetron (ZOFRAN) 4 mg tablet Take 1 tablet by mouth every 8 hours as needed for nausea/vomiting. losartan (COZAAR) 50 mg tablet Take 1 tablet by mouth two times a day. atorvastatin (LIPITOR) 20 mg tablet Take 1 tablet by mouth every 48 hours. cyanocobalamin, vitamin B-12, (VITAMIN B12 ORAL) Take by mouth once daily. denosumab (PROLIA SUBCUTANEOUS) Inject subcutaneously once every 6 months. vibegro (more content not included)... [facility] 12-12-2024 History of Presen t illness Narrative CC: Patient presents with: Head Congestion: Head congestion, productive cough 5 days HPI Reinier Elizabeth is a 89 year old female who presents today for sinus concerns. Recording using [employer] software for draft documentation of the visit was discussed with the patient/authorized account service representative; all questions welcomed and answered. Patient/authorized account service representative agreed to proceed Cough and Congestion: - Symptoms began over a week ago, with worsening over the last 4-5 days. - Initially started with a cough, now accompanied by chest congestion and nasal drainage. - Cough is productive with pale yellow sputum; nasal drainage is white. - Denies wheezing, but reports mild dyspnea, especially with exertion and after coughing spells. - Denies chest pressure, palpitations, or sinus pain. - Reports tinnitus in the right ear, but denies ear pain. - Denies sore throat, headaches, or body aches. - Experiences nausea, with one episode of dry heaves; taking Zofran. - Denies fever, chills, or other systemic symptoms. - Using Tussin cough syrup from [employer], labeled safe for hypertension and diabetes. - Reports feeling wobbly and more tired than usual. - Noted rattling sensation in the chest when coughing. - Recent blood pressure readings have been elevated, with a progressive increase since the onset of symptoms. Also was started on amiodarone 6-8 weeks ago for symptomatic a-fib during a hospitalization. REVIEW OF SYSTEMS See HPI PAST MEDICAL HISTORY Diagnosis Date Acquired keratoderma Lichen sclerosis Anemia Anticoagulant long-term use indication: stroke prevention atrial fibrillation At risk for bleeding associated with anticoagulants HAS-BLED score = 2 (age, bleeding) At risk for stroke [id number] = 4 (HTN, age2, female gender) Benign [...] May. right eye Jun. left eye - [facility] . Dr Gao REPAIR FIRST ABDOMINAL WALL HERNIA 12/14/2012 2cm defect - Parietex Composite ventral patch 6cm STRESS TEST 04/14/2017 PAWAN 02/04/2018 ALLERGIES Macrobid [Nitrofurantoin Monohyd/M-Cryst], Amantadine, Capoten [Captopril], Cephalexin, Erythromycin, Hctz [Thiazides], Ivp Dye [Iodine], and Norvasc [Amlodipine Besylate] MEDICATIONS doxycycline hyclate (VIBRAMYCIN) 100 mg capsule Take 1 capsule by mouth two times a day for 10 days. benzonatate (TESSALON PERLE) 100 mg capsule Take 1 capsule by mouth three times a day as needed. omeprazole (PRILOSEC) 40 mg capsule Take 1 capsule by mouth daily before breakfast. 1/2 hr before meal. levothyroxine (LEVOXYL) 25 mcg tablet Take 1 tablet by mouth once daily. Take on empty stomach. For Thyroid amiodarone (PACERONE) 200 mg tablet Take 1 tablet by mouth once daily. hydrALAZINE (APRESOLINE) 25 mg tablet Take 1 tablet by mouth three times a day. carvedilol (COREG) 3.125 mg tablet Take 1 tablet by mouth two times a day. netarsudil-latanoprost (ROCKLATAN) 0.02-0.005 % ophthalmic solution Use 1 drop in both eyes daily at bedtime. ondansetron (ZOFRAN) 4 mg tablet Take 1 tablet by mouth every 8 hours as needed for nausea/vomiting. losartan (COZAAR) 50 mg tablet Take 1 tablet by mouth two times a day. atorvastatin (LIPITOR) 20 mg tablet Take 1 tablet by mouth every 48 hours. cyanocobalamin, vitamin B-12, (VITAMIN B12 ORAL) Take by mouth once daily. denosumab (PROLIA SUBCUTANEOUS) Inject subcutaneously once every 6 months. vibegron (GEMTESA) 75 mg tablet Take 1 tablet by mouth once daily. furosemide (LASIX) 20 mg tablet Take 1 tablet by mouth every other day. (Patient taking differently: Take 20 mg by mouth as needed.) ferrous sulfate 325 mg (65 mg iron) tablet Take 1 tablet by mouth once daily. potassium chloride (K-TAB) 10 mEq tablet Take 1 tablet by mouth twice daily. (Patient taking differently: Take 10 mEq by mouth once daily as needed (with use of Lasix).) Spirometers and Accessories magdalena Use 3 times [...] IF UNABLE, PLEASE REFER TO [facility]. DX: EDEMA latanoprost (XALATAN) 0.005 % ophthalmic solution 1 Drop daily at bedtime. Cholecalciferol, Vitamin D3, 2,000 unit ORAL Cap Take one(1) tablet two(2) times daily. FAMILY HISTORY Problem Relation Age of Onset Heart Mother Hypertension Mother Ischemic Heart Disease Mother Hypertension Father Ischemic Heart Disease Father Heart Sister By-pass, Triple Ischemic Heart Disease Sister Heart Brother Stent Ischemic Heart Disease Brother Glaucoma Brother other (Renal Stones) Daughter Heart Maternal Aunt Social History Tobacco Use Smoking status: Former Current packs/day: 0.00 Types: Cigarettes Start date: 07/06/1971 Quit date: 07/06/1976 Years since quittin.4 Smokeless tobacco: Never Tobacco comments: Quit 1969' 4-5 cig per day Vaping Use Vaping status: Never Used Substance Use Topics Alcohol use: No Drug use: No PHYSICAL EXAM BP 158/92 Pulse 62 Temp 36.4 C (97.6 F) (Temporal) Resp 16 Wt 61.7 kg (136 lb) SpO2 93% BMI 24.87 kg/m GENERAL: NAD, alert and oriented. EYES: conjunctiva clear. EARS: External ears normal, canals clear, TM's normal, some cerumen present. NOSE/SINUSES: Nares normal. Septum midline. No sinus tenderness OROPHARYNX: Lips, mucosa, and tongue normal No oral lesions noted. NECK: Supple, no lymphadenopathy, normal thyroid, no carotid bruits. LUNGS: Wheezing noted initially, cleared with cough. Rhonchi present. HEART: Regular rate and rhythm, no murmurs. No ectopy. Health maintenance reviewed with patient: Depression Screening Never done Anxiety Screening Never done Shingrix Vaccine(1 of 2) Never done RSV Vaccine(1 - 1-dose 75+ series) Never done DTaP,Tdap,Td Vaccine(3 - Td or Tdap) due on 06/07/2023 Covid-19 Vaccine( season) due on 02/28/2024 Advance Directive Discussion due on 06/29/2024 Medicare Advantage Annual Wellness Visit Never done Bone Density Screening due on 01/12/2025 Influenza Vaccine(Season Ended) due on 02/27/2025 Diabetes Screening due on 09/13/2027 Pneumococcal Vaccine: 50+ Completed DATA REVIEWED: No new labs Assessment/Plan 1. Acute cough (R05.1) 2. Abnormal breath sounds (R06.89) - Coughing for over a week, with worsening symptoms in the last 4-5 days; productive cough with pale yellow sputum. - Auscultation reveals wheezing and abnormal breath sounds, indicating possible bronchitis or early pneumonia. - Ordered chest X-ray to evaluate for pneumonia. - Prescribed Tessalon Perles TID prn to manage severe coughing spells. - Initiated doxycycline to address potential bacterial infection; advised to take with food to minimize gastrointestinal upset. - Follow-up in 3-5 days if no improvement; sooner if chest X-ray confirms pneumonia. 3. Dyspnea, unspecified type (R06.00) - as above, no prednisone ordered to due concern for a-fib - Mild dyspnea noted, particularly post-coughing spells and with exertion. - Anticipate improvement with resolution of respiratory infection. 4. Permanent atrial fibrillation (HCC) (I48.21) - Avoided corticosteroids due to potential impact on cardiac rhythm. - Monitor cardiac status closely during treatment. - with the start of amiodarone and abnormal breath sounds, need to ensure no pulmonary side effect of amiodarone is occurring 5. Essential hypertension (I10) - Blood pressure elevated today, likely secondary to acute illness and coughing. - Recent readings at home: 136/62 mmHg with pulse 52 bpm on the 6th; 148 mmHg a few days later. - Re-evaluate blood pressure control in 1-2 weeks post-recovery. 6. Nausea (R11.0) - Likely secondary to postnasal drip and severe coughing. - Patient has Zofran available; advised to use as needed. - Emphasized importance of maintaining hydration. 7. Medication management (Z79.899) - Reviewed current medications and allergies. - Prescriptions sent to [facility]. - Advised use of probiotics or yogurt with live cultures during antibiotic course to maintain gastrointestinal jeanine. - labs ordered to assess for any adverse issues due to amiodarone usage. Prescription instructions reviewed with patient as applicable. Potential red flag symptoms discussed with the patient. Reviewed appropriate action plan to take if red flag symptoms occur. Patient agreeable to treatment plan. Silvio Drake APRN.CNP documented in this encounter [facility] 12-02-2024 Note HNO ID: [id number] Author: DACIA PITT RN Service: ? Author Type: Registered Nurse Type: Progress Notes Filed: 12/02/2024 10:30 Note Text: Transitional Care Management (TCM) Follow-Up Note PCP Update / Actionable Items N/A - No specialty updates needed Patient Source: In-Network Discharge Follow-up outreach: TCM enrolled patient Outreach Summary: Patient is well at this time. She denies concerns or questions. Reviewed upcoming appts with patient. Contact: Contact made with patient: Yes Spoke to: Patient Validation: Validated the person spoken to is actively involved in the patient's care. The patient was identified by Name and Date of . I'd like to get an update on how you're doing since our last phone call. Is now a good time to talk? Yes Symptoms: Are you feeling about the same, better or worse since leaving the hospital? Better Weekly Outreach: Additional Outreach Medications: Do you have any questions about taking your medications, including which medications you should be on, or do you need refills on your medications? No Patient Questions / Concerns: Do you have any questions related to your discharge? No Appointment / TCM Follow-Up: Have you had a follow-up visit with your Primary Care Provider or Specialist since you were discharged? Yes Do you need any assistance with scheduling or changing your follow-up appointments? Patient already has an appointment scheduled EDUCATION: Patient and family educated on issues/questions related to reason for admission, transition of care topics, and follow-up needed upon discharge. Utilization Education - Where to go for Care Where to Go for Care Dacia Pitt RN December 02, 2024 10:27 AM [facility] 12-02-2024 History of Presen t illness Narrative Transitional Care Management (TCM) Follow-Up Note PCP Update / Actionable Items N/A - No specialty updates needed Patient Source: In-Network Discharge Follow-up outreach: TCM enrolled patient Outreach Summary: Patient is well at this time. She denies concerns or questions. Reviewed upcoming appts with patient. Contact: Contact made with patient: Yes Spoke to: Patient Validation: Validated the person spoken to is actively involved in the patient's care. The patient was identified by Name and Date of . I'd like to get an update on how you're doing since our last phone call. Is now a good time to talk? Yes Symptoms: Are you feeling about the same, better or worse since leaving the hospital? Better Weekly Outreach: Additional Outreach Medications: Do you have any questions about taking your medications, including which medications you should be on, or do you need refills on your medications? No Patient Questions / Concerns: Do you have any questions related to your discharge? No Appointment / TCM Follow-Up: Have you had a follow-up visit with your Primary Care Provider or Specialist since you were discharged? Yes Do you need any assistance with scheduling or changing your follow-up appointments? Patient already has an appointment scheduled EDUCATION: Patient and family educated on issues/questions related to reason for admission, transition of care topics, and follow-up needed upon discharge. Utilization Education - Where to go for Care Where to Go for Care Dacia Pitt RN December 02, 2024 10:27 AM documented in this encounter [facility] 12-02-2024 Note Patient Outreach ([facility] REINIER ELIZABETH ([id number]) 1935 F NFR Date Time Provider Department 12/02/24 DACIA PITT [facility] During your visit today, we recorded the following information about you: Dacia Pitt RN 12/02/2024 10:30 AM Signed Transitional Care Management (TCM) Follow-Up Note PCP Update / Actionable Items N/A - No specialty updates needed Patient Source: In-Network Discharge Follow-up outreach: TCM enrolled patient Outreach Summary: Patient is well at this time. She denies concerns or questions. Reviewed upcoming appts with patient. Contact: Contact made with patient: Yes Spoke to: Patient Validation: Validated the person spoken to is actively involved in the patient's care. The patient was identified by Name and Date of . I'd like to get an update on how you're doing since our last phone call. Is now a good time to talk? Yes Symptoms: Are you feeling about the same, better or worse since leaving the hospital? Better Weekly Outreach: Additional Outreach Medications: Do you have any questions about taking your medications, including which medications you should be on, or do you need refills on your medications? No Patient Questions / Concerns: Do you have any questions related to your discharge? No Appointment / TCM Follow-Up: Have you had a follow-up visit with your Primary Care Provider or Specialist since you were discharged? Yes Do you need any assistance with scheduling or changing your follow-up appointments? Patient already has an appointment scheduled EDUCATION: Patient and family educated on issues/questions related to reason for admission, transition of care topics, and follow-up needed upon discharge. Utilization Education - Where to go for Care Where to Go for Care Dacia Pitt RN December 02, 2024 10:27 AM Allergies As of Date: 12/02/2024 Noted Allergy Reaction MACROBID (NITROFURANTOIN MONOHYD/*10/08/2024 5 - Intolerance Comments: N/V, shakey, diarrhea AMANTADINE 05/09/2005 2 - Rash CAPOTEN (CAPTOPRIL) 05/09/2005 2 - Rash CEPHALEXIN 05/09/2005 2 - Rash ERYTHROMYCIN 05/09/2005 2 - Rash HCTZ (THIAZIDES) 03/26/2015 14 - Other: See Comments Comments: leg cramps IVP DYE (IODINE) 05/12/2005 2 - Rash NORVASC (AMLODIPINE BESYLATE) 08/27/2017 7 - Swelling Date Reviewed: 11/28/2024 Reviewed by: Chastity Last MA - Fully Assessed Prescriptions as of 12/02/2024 - omeprazole (PRILOSEC) 40 mg capsule Take 1 capsule by mouth daily before breakfast. 1/2 hr before meal. - levothyroxine (LEVOXYL) 25 mcg tablet Take 1 tablet by mouth once daily. Take on empty stomach. For Thyroid - amiodarone (PACERONE) 200 mg tablet Take 1 tablet by mouth once daily. - hydrALAZINE (APRESOLINE) 25 mg tablet Take 1 tablet by mouth three times a day. - carvedilol (COREG) 3.125 mg tablet Take 1 tablet by mouth two times a day. - netarsudil-latanoprost (ROCKLATAN) 0.02-0.005 % ophthalmic solution Use 1 drop in both eyes daily at bedtime. - ondansetron (ZOFRAN) 4 mg tablet Take 1 tablet by mouth every 8 hours as needed for nausea/vomiting. - losartan (COZAAR) 50 mg tablet Take 1 tablet by mouth two times a day. - atorvastatin (LIPITOR) 20 mg tablet Take 1 tablet by mouth every 48 hours. - cyanocobalamin, vitamin B-12, (VITAMIN B12 ORAL) Take by mouth once daily. - denosumab (PROLIA SUBCUTANEOUS) Inject subcutaneously once every 6 months. - vibegron (GEMTESA) 75 mg tablet Take 1 tablet by mouth once daily. - furosemide (LASIX) 20 mg tablet Take 1 tablet by mouth every other day. - ferrous sulfate 325 mg (65 mg iron) tablet Take 1 tablet by mouth once daily. - potassium chloride (K-TAB) 10 mEq tablet Take 1 tablet by mouth twice daily. - Spirometers and Accessories magdalena Use 3 times a day, each time blow into it for 10 reps - XARELTO 15 mg tablet Take 15 mg by mouth daily with dinner. - brimonidine (ALPHAGAN P) 0.15 % ophthalmic solution Use 1 Drop in the right eye twice daily. - timolol maleate (TIMOPTIC) 0.5 % ophthalmic solution Use 1 Drop in the right eye twice daily. - >Zippered Compression Knee High 30-40 mm custom CUSTOM MEASURE FOR KNEE HIGH ANGELO COMPRESSION STOCKINGS, 30-40 MM, WITH ZIPPERS PLEASE. IF UNABLE, PLEASE REFER TO [facility]. DX: EDEMA - latanoprost (XALATAN) 0.005 % ophthalmic solution 1 Drop daily at bedtime. - Cholecalciferol, Vitamin D3, 2,000 unit ORAL Cap Take one(1) tablet two(2) times daily. Problem List As Of Date 12/02/2024 Noted Resolved Unspecified osteoporosis [M81.0] 06/10/2010 HYPERLIPIDEMIA NEC/NOS [E78.5] 09/25/2015 Essential hypertension [I10] OVERWEIGHT [E66.9] 09/25/2015 Other specified abnormal findings of blood chem*09/05/2005 ESOPHAGEAL REFLUX [K21.9] 09/06/2007 Hypopotassemia [E87.6] 01/06/2008 08/06/2016 Internal hemorrhoids without mention of complic* (more content not included)... [facility] 11-30-2024 Telephone encounter Note Call placed to Yolette and verbal order given for an additional skilled nurse visit. Brianne Toribio RN [facility] 11-30-2024 Miscellaneous Notes Call placed to Yolette and verbal order given for an additional skilled nurse visit. Brianne Toribio RN Agree for one more visit Anay Iniguez MD Patient was seen today by Yolette DENNISON with [facility] following ER visit. Yolette asking for one more visit next week to review medication changes and discharge from SN services. Call back number is [phone]. Brianne Toribio RN documented in this encounter [facility] 2024 Telephone encounter Note Agree for one more visit Anay Iniguez MD [facility] 2024 Telephone encounter Note Patient was seen today by Yolette DENNISON with [facility] following ER visit. Yolette asking for one more visit next week to review medication changes and discharge from SN services. Call back number is [phone]. Brianne Toribio RN [facility] 2024 Telephone encounter Note Prescription Refill Information The patient has been identified by name and date of : Yes Caregiver verified no other encounters exist for this prescription request: Yes Caregiver confirmed with patient/requestor that no other refills are due, in the near future, with this provider at this time: Yes The last office visit in the department: 11-28-24 Does the patient have a future office visit with this provider/department: Yes Requested Prescriptions Pending Prescriptions Disp Refills omeprazole (PRILOSEC) 40 mg capsule 90 capsule 3 Sig: Take 1 capsule by mouth daily before breakfast. 1/2 hr before meal. levothyroxine (LEVOXYL) 25 mcg tablet 90 tablet 3 Sig: Take 1 tablet by mouth once daily. Take on empty stomach. For Thyroid Renea Bryant 2024 9:05 AM [facility] 2024 Miscellaneous Notes Prescription Refill Information The patient has been identified by name and date of : Yes Caregiver verified no other encounters exist for this prescription request: Yes Caregiver confirmed with patient/requestor that no other refills are due, in the near future, with this provider at this time: Yes The last office visit in the department: 11-28-24 Does the patient have a future office visit with this provider/department: Yes Requested Prescriptions Pending Prescriptions Disp Refills omeprazole (PRILOSEC) 40 mg capsule 90 capsule 3 Sig: Take 1 capsule by mouth daily before breakfast. 1/2 hr before meal. levothyroxine (LEVOXYL) 25 mcg tablet 90 tablet 3 Sig: Take 1 tablet by mouth once daily. Take on empty stomach. For Thyroid Renea Darcie Bryant 2024 9:05 AM documented in this encounter [facility] 11-28-2024 Note HNO ID: [id number] Author: ANAY SCHULER MD Service: ? Author Type: Physician Type: Progress Notes Filed: 11/28/2024 16:49 Note Text: Reason for Visit Follow HPI Reinier is a 88-year-old female with a history of AFib, presenting for follow-up after a recent ER visit and medication changes. Reinier was seen in the ER on 11/19 after experiencing diaphoresis, dizziness, and nausea the previous night. Her home health nurse advised the visit after noting a heart rate in the 40s on pulse oximetry. Reinier had reportedly flipped out of AFib the night before, and her heart rate had been fluctuating between 40-50 bpm, with a one-time reading of 62 bpm last week. In the ER, her blood pressure was recorded as 200 and something, and she was administered clonidine, which significantly lowered her blood pressure but caused her to feel drunk and lethargic. She was discharged shortly after administration. Prior to the ER visit, Reinier had been on metoprolol, which was discontinued about a week ago. She is currently taking amiodarone once daily. Due to persistently elevated blood pressure, hydralazine was prescribed TID approximately 1.5 weeks ago. Following the episode of flipping out of AFib, a low dose of carvedilol (3.25 mg) was added on Thursday, which has helped to gradually lower her blood pressure. She denies any current fluid retention and is using compression stockings. Reinier has a history of anemia, with hemoglobin levels recorded as 10.8, 11.3, and 11.0 g/dL. She is on Xarelto once daily and denies taking NSAIDs. She also denies melena. Social History Tobacco Use Smoking status: Former Current packs/day: 0.00 Types: Cigarettes Start date: 07/06/1971 Quit date: 07/06/1976 Years since quittin.4 Smokeless tobacco: Never Tobacco comments: Quit 4-5 cig per day Vaping Use Vaping status: Never Used Substance Use Topics Alcohol use: No Drug use: No Past medical history, appointments, medications, allergies reviewed. Pertinent Lab/Diagnostic Studies are reviewed and discussed today Current Outpatient Medications: amiodarone (PACERONE) 200 mg tablet hydrALAZINE (APRESOLINE) 25 mg tablet netarsudil-latanoprost (ROCKLATAN) 0.02-0.005 % ophthalmic solution ondansetron (ZOFRAN) 4 mg tablet losartan (COZAAR) 50 mg tablet atorvastatin (LIPITOR) 20 mg tablet levothyroxine (LEVOXYL) 25 mcg tablet omeprazole (PRILOSEC) 40 mg capsule cyanocobalamin, vitamin B-12, (VITAMIN B12 ORAL) denosumab (PROLIA SUBCUTANEOUS) vibegron (GEMTESA) 75 mg tablet furosemide (LASIX) 20 mg tablet ferrous sulfate 325 mg (65 mg iron) tablet potassium chloride (K-TAB) 10 mEq tablet Spirometers and Accessories magdalena XARELTO 15 mg tablet brimonidine (ALPHAGAN P) 0.15 % ophthalmic solution timolol maleate (TIMOPTIC) 0.5 % ophthalmic solution >Zippered Compression Knee High 30-40 mm custom latanoprost (XALATAN) 0.005 % ophthalmic solution Cholecalciferol, Vitamin D3, 2,000 unit ORAL Cap carvedilol (COREG) 3.125 mg tablet Health Maintenance Depression Screening Anxiety Screening Shingrix Vaccine(1 of 2) RSV Vaccine(1 - 1-dose 75+ series) DTaP,Tdap,Td Vaccine(3 - Td or Tdap) Covid-19 Vaccine( season) Advance Directive Discussion@ Review Of Systems Physical Exam BP 152/94 (BP Site: Left Arm, BP Position: Sitting, BP Cuff Size: Regular Adult) Pulse (!) 56 Resp 18 Wt 63.1 kg (139 lb 3.2 oz) BMI 25.46 kg/m? GENERAL: NAD, alert and oriented. SKIN: Unremarkable, no rash or skin lesions. HEAD: Normocephalic. EYES: PERRLA, EOMI, conjunctiva clear. NECK: Supple, no lymphadenopathy, normal thyroid, no carotid bruits. LUNGS: Clear to auscultation bilaterally, no wheezes/rhonchi/rales. HEART: Regular rate and rhythm, no murmurs. No ectopy. EXTREMITIES: Normal, no deformities, no skin discoloration, no edema. NEURO: Awake, alert and oriented x3, cranial nerves II-XII grossly intact, normal gait, no involuntary motions. Labs: - Hemoglobin: - Current: 11 g/dL - Previous: 11.5 g/dL, 11.4 g/dL, 10.8 g/dL - Troponin: Decreasing from prior levels - Fecal occult blood test: Positive Assessment and Plan 1. Hypertensive kidney disease with stage 3b chronic kidney disease (HCC) (I12.9) Blood pressure remains elevated despite current medication regimen. Recent hospitalization on November 19 due to symptoms of dizziness and nausea; patient was found to have low heart rates in the 40s. Metoprolol was discontinued, and patient was started on amiodarone and hydralazine. Carvedilol 3.125 mg was added recently to help control blood pressure. Kidney function is not optimal. - Continue current medications: amiodarone, hydralazine, and carvedilol. - Monitor blood pressure closely; home health nurse to assist with monitoring. - Recheck blood pressure today. - Consider changing Xarelto to Eliquis if kidney function worsens. 2. Anemia, unspecified type (D6 (more content not included)... [facility] 11-28-2024 History of Presen t illness Narrative Reason for Visit Follow HPI Reinier is a 88-year-old female with a history of AFib, presenting for follow-up after a recent ER visit and medication changes. Reinier was seen in the ER on 11/19 after experiencing diaphoresis, dizziness, and nausea the previous night. Her home health nurse advised the visit after noting a heart rate in the 40s on pulse oximetry. Reinier had reportedly flipped out of AFib the night before, and her heart rate had been fluctuating between 40-50 bpm, with a one-time reading of 62 bpm last week. In the ER, her blood pressure was recorded as 200 and something, and she was administered clonidine, which significantly lowered her blood pressure but caused her to feel drunk and lethargic. She was discharged shortly after administration. Prior to the ER visit, Reinier had been on metoprolol, which was discontinued about a week ago. She is currently taking amiodarone once daily. Due to persistently elevated blood pressure, hydralazine was prescribed TID approximately 1.5 weeks ago. Following the episode of flipping out of AFib, a low dose of carvedilol (3.25 mg) was added on Thursday, which has helped to gradually lower her blood pressure. She denies any current fluid retention and is using compression stockings. Reinier has a history of anemia, with hemoglobin levels recorded as 10.8, 11.3, and 11.0 g/dL. She is on Xarelto once daily and denies taking NSAIDs. She also denies melena. Social History Tobacco Use Smoking status: Former Current packs/day: 0.00 Types: Cigarettes Start date: 07/06/1971 Quit date: 07/06/1976 Years since quittin.4 Smokeless tobacco: Never Tobacco comments: Quit 4-5 cig per day Vaping Use Vaping status: Never Used Substance Use Topics Alcohol use: No Drug use: No Past medical history, appointments, medications, allergies reviewed. Pertinent Lab/Diagnostic Studies are reviewed and discussed today Current Outpatient Medications: amiodarone (PACERONE) 200 mg tablet hydrALAZINE (APRESOLINE) 25 mg tablet netarsudil-latanoprost (ROCKLATAN) 0.02-0.005 % ophthalmic solution ondansetron (ZOFRAN) 4 mg tablet losartan (COZAAR) 50 mg tablet atorvastatin (LIPITOR) 20 mg tablet levothyroxine (LEVOXYL) 25 mcg tablet omeprazole (PRILOSEC) 40 mg capsule cyanocobalamin, vitamin B-12, (VITAMIN B12 ORAL) denosumab (PROLIA SUBCUTANEOUS) vibegron (GEMTESA) 75 mg tablet furosemide (LASIX) 20 mg tablet ferrous sulfate 325 mg (65 mg iron) tablet potassium chloride (K-TAB) 10 mEq tablet Spirometers and Accessories magdalena XARELTO 15 mg tablet brimonidine (ALPHAGAN P) 0.15 % ophthalmic solution timolol maleate (TIMOPTIC) 0.5 % ophthalmic solution >Zippered Compression Knee High 30-40 mm custom latanoprost (XALATAN) 0.005 % ophthalmic solution Cholecalciferol, Vitamin D3, 2,000 unit ORAL Cap carvedilol (COREG) 3.125 mg tablet Health Maintenance Depression Screening Anxiety Screening Shingrix Vaccine(1 of 2) RSV Vaccine(1 - 1-dose 75+ series) DTaP,Tdap,Td Vaccine(3 - Td or Tdap) Covid-19 Vaccine(2023- season) Advance Directive Discussion@ Review Of Systems Physical Exam BP 152/94 (BP Site: Left Arm, BP Position: Sitting, BP Cuff Size: Regular Adult) Pulse (!) 56 Resp 18 Wt 63.1 kg (139 lb 3.2 oz) BMI 25.46 kg/m GENERAL: NAD, alert and oriented. SKIN: Unremarkable, no rash or skin lesions. HEAD: Normocephalic. EYES: PERRLA, EOMI, conjunctiva clear. NECK: Supple, no lymphadenopathy, normal thyroid, no carotid bruits. LUNGS: Clear to auscultation bilaterally, no wheezes/rhonchi/rales. HEART: Regular rate and rhythm, no murmurs. No ectopy. EXTREMITIES: Normal, no deformities, no skin discoloration, no edema. NEURO: Awake, alert and oriented x3, cranial nerves II-XII grossly intact, normal gait, no involuntary motions. Labs: - Hemoglobin: - Current: 11 g/dL - Previous: 11.5 g/dL, 11.4 g/dL, 10.8 g/dL - Troponin: Decreasing from prior levels - Fecal occult blood test: Positive Assessment and Plan 1. Hypertensive kidney disease with stage 3b chronic kidney disease (HCC) (I12.9) Blood pressure remains elevated despite current medication regimen. Recent hospitalization on November 19 due to symptoms of dizziness and nausea; patient was found to have low heart rates in the 40s. Metoprolol was discontinued, and patient was started on amiodarone and hydralazine. Carvedilol 3.125 mg was added recently to help control blood pressure. Kidney function is not optimal. - Continue current medications: amiodarone, hydralazine, and carvedilol. - Monitor blood pressure closely; home health nurse to assist with monitoring. - Recheck blood pressure today. - Consider changing Xarelto to Eliquis if kidney function worsens. 2. Anemia, unspecified type (D64.9) Vitamin B12 deficiency (E53.8) Hemoglobin levels have been stable but slightly low: 10.8, 11.3, and most recently 11.0. Patient is on Xarelto, which may contribute to minor bleeding. Recent hospitalizations may have affected vitamin intake. - Ordered IFOBT to check for occult blood loss in the stool. - Patient to complete stool sample and return it within a week. - Scheduled lab work in a month to check iron levels, vitamin B12, and complete blood count. - Monitor for any signs of overt bleeding. Voice recognition software was used to compose this office note. Please excuse any unintended typographical errors. Recording using [employer] software for draft documentation of the visit was discussed with the patient/authorized account service representative; all questions welcomed and answered. Patient/authorized account service representative agreed to proceed Anay Schuler MD Pt seen by Cardiology on 11/25/24. [facility] 11/19/24: History of Present Illness Chief Complaint: Palpitations Informant: patient and family Onset/Context/Timing Onset: Yesterday Context: Sudden Onset Timing: Continuous Quality: Weakness Location: Lower extremities Worsened by: Nothing Relieved by: Nothing Clinical Impression: Bradycardia, sinus, Essential hypertension Narrative: Patient presents with weakness that began last night. Patient states that her legs feel weak. Patient states she broke out into a sweat. Patient admits to some nausea. Patient denies any chest pain or palpitations. Patient denies any shortness of breath or cough. Patient denies any headaches. Patient denies any fevers or chills. Daughter states patient has a history of atrial fibrillation and thinks she went back to a sinus rhythm last night. Medical decision making narrative: Differential diagnosis includes cardiac dysrhythmia, cardiac ischemia, pneumonia, electrolyte abnormality, urinary tract infection, dehydration, and viral illness. EKG will be obtained to assess for cardiac dysrhythmia and cardiac ischemia. Chest x-ray will be obtained to assess for pneumonia, congestive heart failure, and bronchitis. CBC will be obtained to assess for leukocytosis and anemia. Basic metabolic profile will be obtained to assess for electrolyte abnormality and renal function. High-sensitivity troponin will be obtained to assess for cardiac ischemia. PT with INR and PTT will be obtained to assess for coagulopathy. Urinalysis will be obtained to assess for urinary tract infection and hematuria. Lab results narrative: CBC was reviewed. There is a mild anemia with a hemoglobin of 10.7 and hematocrit 33.5. PT with INR and PTT were reviewed. Pro time was 26.3 and INR is 2.4 PTT was slightly elevated at 39.3. Basic metabolic profile was reviewed. BUN was slightly elevated at 28 and creatinine was 1.63. These are consistent with previous results. Serum magnesium was reviewed and was normal at 1.6. High-sensitivity troponin was reviewed and was slightly elevated at 38. 2-hour repeat high-sensitivity troponin was reviewed and was improved at 37. These are decreased from previous results on 10/30/2024 and 10/11/2024. Patient was advised of her findings. Patient's blood pressure increased to 204/79. Patient was ordered a dose of clonidine. However, on reevaluation patient's blood pressure was 154/79. The clonidine was held. Case was discussed with Dr. Olvera from cardiology. He recommended holding the metoprolol. Patient was instructed to follow-up with cardiology as scheduled. Daughter states patient has an appointment this Thursday. Patient and daughter were instructed to return if worse in any way. Patient and daughter understood and were agreeable with the plan. All questions were answered. EKG: Attestation: I personally reviewed and interpreted this EKG as follows: Interpretation: No Acute Injury Pattern and Sinus Bradycardia (48) Comments: EKG was obtained. On my independent interpretation, it showed a sinus bradycardia with a rate of 48. AR interval, QRS interval, and QTc intervals were all normal. [place] was normal. There are no acute ST or T wave changes Imaging: RAD/Chest 1 View (Portable) IMPRESSION: Unremarkable exam. No acute process. Recommendation: Stop taking the metoprolol but continue the amiodarone and losartan documented in this encounter [facility] 11-28-2024 Instructions Anay Schuler MD - 11/28/2024 4:20 PM EDT We discussed your recent health concerns and care plan: - Atrial Fibrillation (AFib) and Blood Pressure Management: - You are no longer taking Metoprolol. Continue taking Amiodarone once daily as prescribed. - You were recently started on Carvedilol 3.25 mg daily to help manage your blood pressure. Continue taking this as directed. - You are also taking Hydralazine three times daily for blood pressure control. Continue this medication as prescribed. - Your blood pressure is still elevated but improving. The home health nurse will continue monitoring it during visits. Please let us know if you experience any symptoms such as dizziness, chest pain, or shortness of breath. - Anemia and Possible Blood Loss: - We will check for hidden blood loss in your stool using an iFOBT (stool sample test). Please follow the instructions provided by the lab to collect and return the sample within one week. - In one month, we will repeat lab work to check your iron levels, vitamin B12, and blood counts. I will call you with the results and discuss any next steps if needed. - Your anemia is mild, and your hemoglobin levels are stable (currently 11). If the stool test shows blood, we may consider further evaluation with a GI specialist for an upper and lower scope. - Kidney Function and Blood Thinner: - Your kidney function is not optimal, and we are monitoring it closely. You are currently taking Xarelto once daily. If needed, we may consider adjusting your blood thinner in the future, but no changes are being made at this time. - Compression Stockings: - Continue using your compression stockings to help manage any swelling. Please complete the stool sample test as soon as possible and return it to the lab. We will follow up with lab work in one month. If you have any new or worsening symptoms, such as black stools, significant dizziness, or chest pain, please contact our office or seek medical attention immediately. documented in this encounter [facility] 11-28-2024 Note HNO ID: [id number] Author: ANAY SCHULER MD Service: ? Author Type: Physician Type: Progress Notes Filed: 11/28/2024 16:49 Note Text: Pt seen by Cardiology on 11/25/24. [facility] 11/19/24: History of Present Illness Chief Complaint: Palpitations Informant: patient and family Onset/Context/Timing Onset: Yesterday Context: Sudden Onset Timing: Continuous Quality: Weakness Location: Lower extremities Worsened by: Nothing Relieved by: Nothing Clinical Impression: Bradycardia, sinus, Essential hypertension Narrative: Patient presents with weakness that began last night. Patient states that her legs feel weak. Patient states she broke out into a sweat. Patient admits to some nausea. Patient denies any chest pain or palpitations. Patient denies any shortness of breath or cough. Patient denies any headaches. Patient denies any fevers or chills. Daughter states patient has a history of atrial fibrillation and thinks she went back to a sinus rhythm last night. Medical decision making narrative: Differential diagnosis includes cardiac dysrhythmia, cardiac ischemia, pneumonia, electrolyte abnormality, urinary tract infection, dehydration, and viral illness. EKG will be obtained to assess for cardiac dysrhythmia and cardiac ischemia. Chest x-ray will be obtained to assess for pneumonia, congestive heart failure, and bronchitis. CBC will be obtained to assess for leukocytosis and anemia. Basic metabolic profile will be obtained to assess for electrolyte abnormality and renal function. High-sensitivity troponin will be obtained to assess for cardiac ischemia. PT with INR and PTT will be obtained to assess for coagulopathy. Urinalysis will be obtained to assess for urinary tract infection and hematuria. Lab results narrative: CBC was reviewed. There is a mild anemia with a hemoglobin of 10.7 and hematocrit 33.5. PT with INR and PTT were reviewed. Pro time was 26.3 and INR is 2.4 PTT was slightly elevated at 39.3. Basic metabolic profile was reviewed. BUN was slightly elevated at 28 and creatinine was 1.63. These are consistent with previous results. Serum magnesium was reviewed and was normal at 1.6. High-sensitivity troponin was reviewed and was slightly elevated at 38. 2-hour repeat high-sensitivity troponin was reviewed and was improved at 37. These are decreased from previous results on 10/30/2024 and 10/11/2024. Patient was advised of her findings. Patient's blood pressure increased to 204/79. Patient was ordered a dose of clonidine. However, on reevaluation patient's blood pressure was 154/79. The clonidine was held. Case was discussed with Dr. Olvera from cardiology. He recommended holding the metoprolol. Patient was instructed to follow-up with cardiology as scheduled. Daughter states patient has an appointment this Thursday. Patient and daughter were instructed to return if worse in any way. Patient and daughter understood and were agreeable with the plan. All questions were answered. EKG: Attestation: I personally reviewed and interpreted this EKG as follows: Interpretation: No Acute Injury Pattern and Sinus Bradycardia (48) Comments: EKG was obtained. On my independent interpretation, it showed a sinus bradycardia with a rate of 48. AR interval, QRS interval, and QTc intervals were all normal. [place] was normal. There are no acute ST or T wave changes Imaging: RAD/Chest 1 View (Portable) IMPRESSION: Unremarkable exam. No acute process. Recommendation: Stop taking the metoprolol but continue the amiodarone and losartan [facility] 11-25-2024 Note HNO ID: [id number] Author: DACIA PITT RN Service: ? Author Type: Registered Nurse Type: Progress Notes Filed: 11/25/2024 10:15 Note Text: Transitional Care Management (TCM) Follow-Up Note PCP Update / Actionable Items N/A - No specialty updates needed Patient Source: In-Network Discharge Follow-up outreach: TCM enrolled patient Outreach Summary: Patient states her breathing has been well and denies change in daily weights. She has appropriate numbers to reach out to providers as needed. Reviewed upcoming visits with patient. Contact: Contact made with patient: Yes Spoke to: Patient Validation: Validated the person spoken to is actively involved in the patient's care. The patient was identified by Name and Date of . I'd like to get an update on how you're doing since our last phone call. Is now a good time to talk? Yes Symptoms: Are you feeling about the same, better or worse since leaving the hospital? Better Weekly Outreach: Additional Outreach Medications: Do you have any questions about taking your medications, including which medications you should be on, or do you need refills on your medications? No Patient Questions / Concerns: Do you have any questions related to your discharge? Yes Discussed the patient's questions and/or concerns. If applicable, the appropriate Team/Provider updated in FYI box. Appointment / TCM Follow-Up: Have you had a follow-up visit with your Primary Care Provider or Specialist since you were discharged? Yes Do you need any assistance with scheduling or changing your follow-up appointments? Patient already has an appointment scheduled EDUCATION: Patient and family educated on issues/questions related to reason for admission, transition of care topics, and follow-up needed upon discharge. Heart Failure Education Provided Weight monitoring and knowing your dry weight Symptom management related to heart failure When to call your provider Dacia Pitt RN November 25, 2024 10:14 AM [facility] 11-25-2024 History of Presen t illness Narrative Transitional Care Management (TCM) Follow-Up Note PCP Update / Actionable Items N/A - No specialty updates needed Patient Source: In-Network Discharge Follow-up outreach: TCM enrolled patient Outreach Summary: Patient states her breathing has been well and denies change in daily weights. She has appropriate numbers to reach out to providers as needed. Reviewed upcoming visits with patient. Contact: Contact made with patient: Yes Spoke to: Patient Validation: Validated the person spoken to is actively involved in the patient's care. The patient was identified by Name and Date of . I'd like to get an update on how you're doing since our last phone call. Is now a good time to talk? Yes Symptoms: Are you feeling about the same, better or worse since leaving the hospital? Better Weekly Outreach: Additional Outreach Medications: Do you have any questions about taking your medications, including which medications you should be on, or do you need refills on your medications? No Patient Questions / Concerns: Do you have any questions related to your discharge? Yes Discussed the patient's questions and/or concerns. If applicable, the appropriate Team/Provider updated in FYI box. Appointment / TCM Follow-Up: Have you had a follow-up visit with your Primary Care Provider or Specialist since you were discharged? Yes Do you need any assistance with scheduling or changing your follow-up appointments? Patient already has an appointment scheduled EDUCATION: Patient and family educated on issues/questions related to reason for admission, transition of care topics, and follow-up needed upon discharge. Heart Failure Education Provided Weight monitoring and knowing your dry weight Symptom management related to heart failure When to call your provider Dacia Pitt RN November 25, 2024 10:14 AM documented in this encounter [facility] 11-25-2024 Note Patient Outreach ([facility] [place] GLENNREINIER Degroot ([id number]) 1935 F NFR Date Time Provider Department 11/25/24 DACIA PITT [facility] [place] During your visit today, we recorded the following information about you: Dacia Pitt RN 11/25/2024 10:15 AM Signed Transitional Care Management (TCM) Follow-Up Note PCP Update / Actionable Items N/A - No specialty updates needed Patient Source: In-Network Discharge Follow-up outreach: TCM enrolled patient Outreach Summary: Patient states her breathing has been well and denies change in daily weights. She has appropriate numbers to reach out to providers as needed. Reviewed upcoming visits with patient. Contact: Contact made with patient: Yes Spoke to: Patient Validation: Validated the person spoken to is actively involved in the patient's care. The patient was identified by Name and Date of . I'd like to get an update on how you're doing since our last phone call. Is now a good time to talk? Yes Symptoms: Are you feeling about the same, better or worse since leaving the hospital? Better Weekly Outreach: Additional Outreach Medications: Do you have any questions about taking your medications, including which medications you should be on, or do you need refills on your medications? No Patient Questions / Concerns: Do you have any questions related to your discharge? Yes Discussed the patient's questions and/or concerns. If applicable, the appropriate Team/Provider updated in FYI box. Appointment / TCM Follow-Up: Have you had a follow-up visit with your Primary Care Provider or Specialist since you were discharged? Yes Do you need any assistance with scheduling or changing your follow-up appointments? Patient already has an appointment scheduled EDUCATION: Patient and family educated on issues/questions related to reason for admission, transition of care topics, and follow-up needed upon discharge. Heart Failure Education Provided Weight monitoring and knowing your dry weight Symptom management related to heart failure When to call your provider Dacia Pitt RN November 25, 2024 10:14 AM Allergies As of Date: 11/25/2024 Noted Allergy Reaction MACROBID (NITROFURANTOIN MONOHYD/*10/08/2024 5 - Intolerance Comments: N/V, shakey, diarrhea AMANTADINE 05/09/2005 2 - Rash CAPOTEN (CAPTOPRIL) 05/09/2005 2 - Rash CEPHALEXIN 05/09/2005 2 - Rash ERYTHROMYCIN 05/09/2005 2 - Rash HCTZ (THIAZIDES) 03/26/2015 14 - Other: See Comments Comments: leg cramps IVP DYE (IODINE) 05/12/2005 2 - Rash NORVASC (AMLODIPINE BESYLATE) 08/27/2017 7 - Swelling Date Reviewed: 11/14/2024 Reviewed by: Yany Nieto MA - Fully Assessed Prescriptions as of 11/25/2024 - amiodarone (PACERONE) 200 mg tablet Take 1 tablet by mouth every 12 hours. - metoprolol tartrate, short acting, (LOPRESSOR) 25 mg tablet Take 1 tablet by mouth two times a day. - ondansetron (ZOFRAN) 4 mg tablet Take 1 tablet by mouth every 8 hours as needed for nausea/vomiting. - losartan (COZAAR) 50 mg tablet Take 1 tablet by mouth two times a day. - atorvastatin (LIPITOR) 20 mg tablet Take 1 tablet by mouth every 48 hours. - levothyroxine (LEVOXYL) 25 mcg tablet Take 1 tablet by mouth once daily. Take on empty stomach. For Thyroid - omeprazole (PRILOSEC) 40 mg capsule Take 1 capsule by mouth daily before breakfast. 1/2 hr before meal. - cyanocobalamin, vitamin B-12, (VITAMIN B12 ORAL) Take by mouth once daily. - denosumab (PROLIA SUBCUTANEOUS) Inject subcutaneously once every 6 months. - vibegron (GEMTESA) 75 mg tablet Take 1 tablet by mouth once daily. - hydrOXYzine HCl (ATARAX) 25 mg tablet Take 1 tablet by mouth every 4 hours as needed for itching/rash. - furosemide (LASIX) 20 mg tablet Take 1 tablet by mouth every other day. - ferrous sulfate 325 mg (65 mg iron) tablet Take 1 tablet by mouth once daily. - hydrALAZINE (APRESOLINE) 10 mg tablet Take 1 tablet by mouth four times daily. - potassium chloride (K-TAB) 10 mEq tablet Take 1 tablet by mouth twice daily. - Spirometers and Accessories magdalena Use 3 times a day, each time blow into it for 10 reps - XARELTO 15 mg tablet Take 15 mg by mouth daily with dinner. - brimonidine (ALPHAGAN P) 0.15 % ophthalmic solution Use 1 Drop in the right eye twice daily. - timolol maleate (TIMOPTIC) 0.5 % ophthalmic solution Use 1 Drop in the right eye twice daily. - >Zippered Compression Knee High 30-40 mm custom CUSTOM MEASURE FOR KNEE HIGH ANGELO COMPRESSION STOCKINGS, 30-40 MM, WITH ZIPPERS PLEASE. IF UNABLE, PLEASE REFER TO [facility] AT [facility]. DX: EDEMA - latanoprost (XALATAN) 0.005 % ophthalmic solution 1 Drop daily at bedtime. - TRAVATAN Z 0.004 % Drop daily at bedtime. - Cholecalciferol, Vitamin D3, 2,000 unit ORAL Cap Take one(1) tablet two(2) times daily. Problem List As Of Date 11/25/2024 (more content not included)... [facility] 11-23-2024 Note HNO ID: [id number] Author: FLAKITO SPENCER MA Service: ? Author Type: Montessori Lead Teacher Type: Progress Notes Filed: 11/23/2024 12:29 Note Text: POPULATION HEALTH NAVIGATION OUTREACH Action/FYI CM Pool Message Type: ACM Krystle [place] [facility] 11/19/24 Bradycardia,HTN We are forwarding this patient to Network Navigation to schedule a sooner [place] [facility] 11/19/24 PCP follow-up appointment. Care Gaps Due: None Outcomes: Spoke to patient and scheduled ED Follow Up. Reason for Outreach Community Monitoring/Network Navigator Pools AND Phone Line: CM Pool Care Gaps due: N/A Patient Contacted: Spoke to patient/parent/or legal guardian Patient identified by name and : Yes Community Monitoring/Network Navigator Pools AND Phone Line actions taken: Patient scheduled / pended orders: ER Follow-up 11/28/2024 in [facility] with ANAY SCHULER - 11/19/24 [place] [facility] Follow Up - ED Utilization 01/03/2025 in [facility] with ANAY SCHULER - 2 Month F/U Navigation Signature: Flakito Spencer MA November 23, 2024 12:08 PM [facility] 11-23-2024 History of Presen t illness Narrative POPULATION HEALTH NAVIGATION OUTREACH Action/FYI CM Pool Message Type: AC Krystle [place] [facility] 11/19/24 Bradycardia,HTN We are forwarding this patient to Network Navigation to schedule a sooner [place] [facility] 11/19/24 PCP follow-up appointment. Care Gaps Due: None Outcomes: Spoke to patient and scheduled ED Follow Up. Reason for Outreach Community Monitoring/Network Navigator Pools & Phone Line: CM Pool Care Gaps due: N/A Patient Contacted: Spoke to patient/parent/or legal guardian Patient identified by name and : Yes Community Monitoring/Network Navigator Pools & Phone Line actions taken: Patient scheduled / pended orders: ER Follow-up 11/28/2024 in [facility] with ANAY SCHULER - 11/19/24 [place] [facility] Follow Up - ED Utilization 01/03/2025 in [facility] with ANAY SCHULER - 2 Month F/U Navigation Signature: Flakito Spencer MA November 23, 2024 12:08 PM Summary: Chart review review per request of payor [facility] KRYSTLE RN Patient identified by name and date of . Reason for review or outreach: Chart Review K[facility]le [facility] Utilization REQUESTED ACTION/FYI: Please see ED Utilization summary below A follow-up appointment is noted to be scheduled on 01/03/25. We are forwarding this patient to Network Navigation to schedule a sooner [place] [facility] 11/19/24 PCP follow-up appointment. Thank you Exclusion Criteria Incorrect attribution Does not meet exclusion criteria Utilization in past 6 months: # Occurrences Date Last Occurrence Hospital Admission 3-OON 10/30/24 Hospital Observation 0 N/A ED 2-OON 11/19/24 SNF / Acute Rehab / LTAC 0 N/A ED DIAGNOSES/REASON(S) FOR ED USE: [place] [facility] 11/19/24 Bradycardia,HTN OTHER FINDINGS/SUMMARY: Difficult to find discharge summary information in Care Everywhere Patient Attributed To: Incorrect attribution QAE Payer: Adama MELISSA Action Taken: Referrals/Routed: Population Health Navigation: Appointment. Router to [facility] [[id number]] Payor attribution list updated with changed PCP information Contact made with patient: No, Chart review only. Signature: Laly MATTHEWS,RN,[facility] [employer] Contract RN [phone] documented in this encounter [facility] 11-23-2024 Note HNO ID: [id number] Author: LALY LONG RN Service: ? Author Type: Registered Nurse Type: Progress Notes Filed: 11/23/2024 09:06 Note Text: Summary: Chart review review per request of payor [facility] KRYSTLE RN Patient identified by name and date of . Reason for review or outreach: Chart Review K[facility] Utilization REQUESTED ACTION/FYI: Please see ED Utilization summary below A follow-up appointment is noted to be scheduled on 01/03/25. We are forwarding this patient to Network Navigation to schedule a sooner [facility] 11/19/24 PCP follow-up appointment. Thank you Exclusion Criteria Incorrect attribution Does not meet exclusion criteria Utilization in past 6 months: # Occurrences Date Last Occurrence Hospital Admission 3-OON 10/30/24 Hospital Observation 0 N/A ED 2-OON 11/19/24 SNF / Acute Rehab / LTAC 0 N/A ED DIAGNOSES/REASON(S) FOR ED USE: [place] [facility] 11/19/24 Bradycardia,HTN OTHER FINDINGS/SUMMARY: Difficult to find discharge summary information in Care Everywhere Patient Attributed To: Incorrect attribution QAE Payer: Adama MELISSA Action Taken: Referrals/Routed: [facility] Health Navigation: Appointment. Router to [facility] [[id number]] Payor attribution list updated with changed PCP information Contact made with patient: No, Chart review only. Signature: Laly Long MSN,RN,[facility] [employer] Contract RN [phone] [facility] 11-23-2024 Note Patient Outreach ([facility] REINIER ELIZABETH ([id number]) 1935 F NFR Date Time Provider Department 11/23/24 LALY LONG [facility] During your visit today, we recorded the following information about you: Laly Long RN 11/23/2024 9:06 AM Signed [facility] KRYSTLE RN Patient identified by name and date of . Reason for review or outreach: Chart Review K[facility] Utilization REQUESTED ACTION/FYI: Please see ED Utilization summary below A follow-up appointment is noted to be scheduled on 01/03/25. We are forwarding this patient to Network Navigation to schedule a sooner [facility] 11/19/24 PCP follow-up appointment. Thank you Exclusion Criteria Incorrect attribution Does not meet exclusion criteria Utilization in past 6 months: # Occurrences Date Last Occurrence Hospital Admission 3-OON 10/30/24 Hospital Observation 0 N/A ED 2-OON 11/19/24 SNF / Acute Rehab / LTAC 0 N/A ED DIAGNOSES/REASON(S) FOR ED USE: [facility] 11/19/24 Bradycardia,HTN OTHER FINDINGS/SUMMARY: Difficult to find discharge summary information in Care Everywhere Patient Attributed To: Incorrect attribution QAE Payer: Adama MELISSA Action Taken: Referrals/Routed: Population Health Navigation: Appointment. Router to [facility] [[id number]] Payor attribution list updated with changed PCP information Contact made with patient: No, Chart review only. Signature: Laly Long MSN,RN,[facility] [employer] Contract RN [phone] Flakito Spencer MA 11/23/2024 12:29 PM Signed POPULATION HEALTH NAVIGATION OUTREACH Action/FYI CM Pool Message Type: ACM Krystle [place] [facility] 11/19/24 Bradycardia,HTN We are forwarding this patient to Network Navigation to schedule a sooner [place] [facility] 11/19/24 PCP follow-up appointment. Care Gaps Due: None Outcomes: Spoke to patient and scheduled ED Follow Up. Reason for Outreach Community Monitoring/Network Navigator Pools AND Phone Line: CM Pool Care Gaps due: N/A Patient Contacted: Spoke to patient/parent/or legal guardian Patient identified by name and : Yes Community Monitoring/Network Navigator Pools AND Phone Line actions taken: Patient scheduled / pended orders: ER Follow-[facility] 11/28/20[facility] with ANAY SCHULER - 11/19/24 [place] [facility] Follow Up - ED Utilization 01/03/2025 in [facility] with ANAY SCHULER - 2 Month F/U Navigation Signature: Flakito Spencer MA November 23, 2024 12:08 PM Allergies As of Date: 11/23/2024 Noted Allergy Reaction MACROBID (NITROFURANTOIN MONOHYD/*10/08/2024 5 - Intolerance Comments: N/V, shakey, diarrhea AMANTADINE 05/09/2005 2 - Rash CAPOTEN (CAPTOPRIL) 05/09/2005 2 - Rash CEPHALEXIN 05/09/2005 2 - Rash ERYTHROMYCIN 05/09/2005 2 - Rash HCTZ (THIAZIDES) 03/26/2015 14 - Other: See Comments Comments: leg cramps IVP DYE (IODINE) 05/12/2005 2 - Rash NORVASC (AMLODIPINE BESYLATE) 08/27/2017 7 - Swelling Date Reviewed: 11/14/2024 Reviewed by: Yany Nieto MA - Fully Assessed Reason for Visit: [facility] KRYSTLE RN [[id number]] Cmt: Chart review review per request of payor Prescriptions as of 11/23/2024 - amiodarone (PACERONE) 200 mg tablet Take 1 tablet by mouth every 12 hours. - metoprolol tartrate, short acting, (LOPRESSOR) 25 mg tablet Take 1 tablet by mouth two times a day. - ondansetron (ZOFRAN) 4 mg tablet Take 1 tablet by mouth every 8 hours as needed for nausea/vomiting. - losartan (COZAAR) 50 mg tablet Take 1 tablet by mouth two times a day. - atorvastatin (LIPITOR) 20 mg tablet Take 1 tablet by mouth every 48 hours. - levothyroxine (LEVOXYL) 25 mcg tablet Take 1 tablet by mouth once daily. Take on empty stomach. For Thyroid - omeprazole (PRILOSEC) 40 mg capsule Take 1 capsule by mouth daily before breakfast. 1/2 hr before meal. - cyanocobalamin, vitamin B-12, (VITAMIN B12 ORAL) Take by mouth once daily. - denosumab (PROLIA SUBCUTANEOUS) Inject subcutaneously once every 6 months. - vibegron (GEMTESA) 75 mg tablet Take 1 tablet by mouth once daily. - hydrOXYzine HCl (ATARAX) 25 mg tablet Take 1 tablet by mouth every 4 hours as needed for itching/rash. - furosemide (LASIX) 20 mg tablet Take 1 tablet by mouth every other day. - ferrous sulfate 325 mg (65 mg iron) tablet Take 1 tablet by mouth once daily. - hydrALAZINE (APRESOLINE) 10 mg tablet Take 1 tablet by mouth four times daily. - potassium chloride (K-TAB) 10 mEq tablet Take 1 tablet by mouth twice daily. - Spirometers and Accessories magdalena Use 3 times a day, each time blow into it for 10 reps - XARELTO 15 mg tablet Take 15 mg by mouth daily with dinner. - brimonidine (ALPHAGAN P) 0.15 % ophthalmic solution Use 1 Drop in the right eye twice daily. - timolol maleate (TIMOPTIC) 0.5 % ophthalmic solution Use 1 Drop in the right eye twice daily. (more content not included)... [facility] 11-18-2024 Note HNO ID: [id number] Author: DACIA PITT RN Service: ? Author Type: Registered Nurse Type: Progress Notes Filed: 11/18/2024 14:41 Note Text: Transitional Care Management (TCM) Follow-Up Note PCP Update / Actionable Items N/A - No specialty updates needed Patient Source: In-Network Discharge Follow-up outreach: TCM enrolled patient Outreach Summary: Patient denies any new or worsening symtoms. Denies sob, chest pain, BLE edema, and states she has a follow up visit next week with cardiology at [facility]. Reviewed upcoming appts with patient. Contact: Contact made with patient: Yes Spoke to: Patient Validation: Validated the person spoken to is actively involved in the patient's care. The patient was identified by Name and Date of . I'd like to get an update on how you're doing since our last phone call. Is now a good time to talk? Yes Symptoms: Are you feeling about the same, better or worse since leaving the hospital? Better Weekly Outreach: 3rd Outreach (Reminder to complete appropriate education topics with the patient.) Medications: Do you have any questions about taking your medications, including which medications you should be on, or do you need refills on your medications? No Patient Questions / Concerns: Do you have any questions related to your discharge? No Appointment / TCM Follow-Up: Have you had a follow-up visit with your Primary Care Provider or Specialist since you were discharged? Yes Do you need any assistance with scheduling or changing your follow-up appointments? Patient already has an appointment scheduled EDUCATION: Patient and family educated on issues/questions related to reason for admission, transition of care topics, and follow-up needed upon discharge. Utilization Education - Where to go for Care Where to Go for Care Dacia Pitt RN November 18, 2024 2:38 PM [facility] 11-18-2024 Note Patient Outreach ([facility] REINIER ELIZABETH ([id number]) 1935 F NFR Date Time Provider Department 11/18/24 DACIA PITT [facility] During your visit today, we recorded the following information about you: Dacia Pitt RN 11/18/2024 2:41 PM Signed Transitional Care Management (TCM) Follow-Up Note PCP Update / Actionable Items N/A - No specialty updates needed Patient Source: In-Network Discharge Follow-up outreach: TCM enrolled patient Outreach Summary: Patient denies any new or worsening symtoms. Denies sob, chest pain, BLE edema, and states she has a follow up visit next week with cardiology at [facility]. Reviewed upcoming appts with patient. Contact: Contact made with patient: Yes Spoke to: Patient Validation: Validated the person spoken to is actively involved in the patient's care. The patient was identified by Name and Date of . I'd like to get an update on how you're doing since our last phone call. Is now a good time to talk? Yes Symptoms: Are you feeling about the same, better or worse since leaving the hospital? Better Weekly Outreach: 3rd Outreach (Reminder to complete appropriate education topics with the patient.) Medications: Do you have any questions about taking your medications, including which medications you should be on, or do you need refills on your medications? No Patient Questions / Concerns: Do you have any questions related to your discharge? No Appointment / TCM Follow-Up: Have you had a follow-up visit with your Primary Care Provider or Specialist since you were discharged? Yes Do you need any assistance with scheduling or changing your follow-up appointments? Patient already has an appointment scheduled EDUCATION: Patient and family educated on issues/questions related to reason for admission, transition of care topics, and follow-up needed upon discharge. Utilization Education - Where to go for Care Where to Go for Care Dacia Pitt RN November 18, 2024 2:38 PM Allergies As of Date: 11/18/2024 Noted Allergy Reaction MACROBID (NITROFURANTOIN MONOHYD/*10/08/2024 5 - Intolerance Comments: N/V, shakey, diarrhea AMANTADINE 05/09/2005 2 - Rash CAPOTEN (CAPTOPRIL) 05/09/2005 2 - Rash CEPHALEXIN 05/09/2005 2 - Rash ERYTHROMYCIN 05/09/2005 2 - Rash HCTZ (THIAZIDES) 03/26/2015 14 - Other: See Comments Comments: leg cramps IVP DYE (IODINE) 05/12/2005 2 - Rash NORVASC (AMLODIPINE BESYLATE) 08/27/2017 7 - Swelling Date Reviewed: 11/14/2024 Reviewed by: Yany Nieto MA - Fully Assessed Prescriptions as of 11/18/2024 - amiodarone (PACERONE) 200 mg tablet Take 1 tablet by mouth every 12 hours. - metoprolol tartrate, short acting, (LOPRESSOR) 25 mg tablet Take 1 tablet by mouth two times a day. - ondansetron (ZOFRAN) 4 mg tablet Take 1 tablet by mouth every 8 hours as needed for nausea/vomiting. - losartan (COZAAR) 50 mg tablet Take 1 tablet by mouth two times a day. - atorvastatin (LIPITOR) 20 mg tablet Take 1 tablet by mouth every 48 hours. - levothyroxine (LEVOXYL) 25 mcg tablet Take 1 tablet by mouth once daily. Take on empty stomach. For Thyroid - omeprazole (PRILOSEC) 40 mg capsule Take 1 capsule by mouth daily before breakfast. 1/2 hr before meal. - cyanocobalamin, vitamin B-12, (VITAMIN B12 ORAL) Take by mouth once daily. - denosumab (PROLIA SUBCUTANEOUS) Inject subcutaneously once every 6 months. - vibegron (GEMTESA) 75 mg tablet Take 1 tablet by mouth once daily. - hydrOXYzine HCl (ATARAX) 25 mg tablet Take 1 tablet by mouth every 4 hours as needed for itching/rash. - furosemide (LASIX) 20 mg tablet Take 1 tablet by mouth every other day. - ferrous sulfate 325 mg (65 mg iron) tablet Take 1 tablet by mouth once daily. - hydrALAZINE (APRESOLINE) 10 mg tablet Take 1 tablet by mouth four times daily. - potassium chloride (K-TAB) 10 mEq tablet Take 1 tablet by mouth twice daily. - Spirometers and Accessories magdalena Use 3 times a day, each time blow into it for 10 reps - XARELTO 15 mg tablet Take 15 mg by mouth daily with dinner. - brimonidine (ALPHAGAN P) 0.15 % ophthalmic solution Use 1 Drop in the right eye twice daily. - timolol maleate (TIMOPTIC) 0.5 % ophthalmic solution Use 1 Drop in the right eye twice daily. - >Zippered Compression Knee High 30-40 mm custom CUSTOM MEASURE FOR KNEE HIGH ANGELO COMPRESSION STOCKINGS, 30-40 MM, WITH ZIPPERS PLEASE. IF UNABLE, PLEASE REFER TO [facility]. DX: EDEMA - latanoprost (XALATAN) 0.005 % ophthalmic solution 1 Drop daily at bedtime. - TRAVATAN Z 0.004 % Drop daily at bedtime. - Cholecalciferol, Vitamin D3, 2,000 unit ORAL Cap Take one(1) tablet two(2) times daily. Problem List As Of Date 11/18/2024 Noted Resolved Unspecified osteoporosis [M81.0] 06/10/2010 HYPERLIPIDEMIA NEC/NOS [E78.5] 09/25/2015 Essential hypertens (more content not included)... [facility] 11-14-2024 Note HNO ID: [id number] Author: ANAY SCHULER MD Service: ? Author Type: Physician Type: Progress Notes Filed: 11/14/2024 18:49 Note Text: Reason for Visit Follow up HPI Reinier is a 88-year-old female with a history of atrial fibrillation, presenting for follow-up. Reinier was recently seen by the [facility] on November 04. She is currently on anticoagulation therapy. Recent changes to her medication regimen include the addition of amiodarone on Thursday. She is also taking losartan 50 mg twice daily. carvedilol was discontinued due to bradycardia, and metoprolol 25 mg twice daily was initiated. Reinier has been experiencing fluctuations in weight, with a baseline of 139-140 lbs. She recently gained 8 lbs, reaching 148 lbs, which prompted the use of Lasix 40 mg for three consecutive days. This resulted in a decrease in weight but also led to an episode of atrial fibrillation. Reinier was subsequently instructed to take Lasix 20 mg as needed. She is not currently taking potassium supplements. Reinier has been experiencing a persistent cough, which improves with diuresis. She also reports episodes of soft, watery stools, particularly after taking Lasix. She suspects a possible correlation with dairy consumption, specifically milk. She denies any recent changes in diet or fluid intake, consuming approximately 3-4 bottles of spring water daily. She has reduced her intake of coffee and tea and occasionally drinks orange juice. She is monitoring her sodium intake and elevates her feet at night. Social History Tobacco Use Smoking status: Former Current packs/day: 0.00 Types: Cigarettes Start date: 07/06/1971 Quit date: 07/06/1976 Years since quittin.3 Smokeless tobacco: Never Tobacco comments: Quit 1969' 4-5 cig per day Vaping Use Vaping status: Never Used Substance Use Topics Alcohol use: No Drug use: No Past medical history, appointments, medications, allergies reviewed. Pertinent Lab/Diagnostic Studies are reviewed and discussed today Current Outpatient Medications: amiodarone (PACERONE) 200 mg tablet ondansetron (ZOFRAN) 4 mg tablet losartan (COZAAR) 50 mg tablet atorvastatin (LIPITOR) 20 mg tablet levothyroxine (LEVOXYL) 25 mcg tablet omeprazole (PRILOSEC) 40 mg capsule cyanocobalamin, vitamin B-12, (VITAMIN B12 ORAL) denosumab (PROLIA SUBCUTANEOUS) ferrous sulfate 325 mg (65 mg iron) tablet Spirometers and Accessories magdalena XARELTO 15 mg tablet brimonidine (ALPHAGAN P) 0.15 % ophthalmic solution timolol maleate (TIMOPTIC) 0.5 % ophthalmic solution >Zippered Compression Knee High 30-40 mm custom latanoprost (XALATAN) 0.005 % ophthalmic solution TRAVATAN Z 0.004 % Drop Cholecalciferol, Vitamin D3, 2,000 unit ORAL Cap metoprolol tartrate, short acting, (LOPRESSOR) 25 mg tablet vibegron (GEMTESA) 75 mg tablet hydrOXYzine HCl (ATARAX) 25 mg tablet furosemide (LASIX) 20 mg tablet hydrALAZINE (APRESOLINE) 10 mg tablet potassium chloride (K-TAB) 10 mEq tablet Health Maintenance Depression Screening Anxiety Screening Shingrix Vaccine(1 of 2) RSV Vaccine(1 - 1-dose 75+ series) DTaP,Tdap,Td Vaccine(3 - Td or Tdap) Covid-19 Vaccine( season) Advance Directive Discussion@ Review Of Systems Constitutional: (No entries) Head: (No entries) Eyes: (No entries) Ears/Nose/Mouth/Throat: (No entries) Neck: (No entries) Cardiovascular: (-) chest pain Respiratory: (+) cough, (-) shortness of breath Gastrointestinal: (+) watery stool Genitourinary: (No entries) Musculoskeletal: (No entries) Skin: (No entries) Neurological: (-) dizziness Psychiatric: (No entries) Endocrine: (No entries) Hematologic/Lymphatic: (No entries) Physical Exam BP 158/100 Pulse 119 Resp 16 Wt 62.8 kg (138 lb 6.4 oz) SpO2 99% BMI 25.31 kg/m? GENERAL: NAD, alert and oriented. SKIN: Unremarkable, no rash or skin lesions. HEAD: Normocephalic. EYES: PERRLA, EOMI, conjunctiva clear. EARS: External ears normal, canals clear, TM's normal. NOSE/SINUSES: Nares normal. Septum midline. OROPHARYNX: Lips, mucosa, and tongue normal, good dentition. No oral lesions noted. NECK: Supple, no lymphadenopathy, normal thyroid, no carotid bruits. LUNGS: Clear to auscultation bilaterally, no wheezes/rhonchi/rales. HEART: Tachycardic, regular rhythm, no murmurs. No ectopy. EXTREMITIES: No deformities, no skin discoloration, no edema. NEURO: Awake, alert and oriented x3, cranial nerves II-XII grossly intact, normal gait, no involuntary motions. Labs: - CBC: Hemoglobin 11 g/dL Assessment and Plan 1. Permanent atrial fibrillation (HCC) (I48.21) Persistent tachycardia with heart rate recorded at 119 bpm today. Recent hospitalization due to high heart rate and low blood pressure. Currently on amiodarone 200 mg BID, initiated on Thursday. - Initiate metoprolol 25 mg BID to manage heart rate. - Monitor heart rate closely; follow-up EKG schedul (more content not included)... [facility] 11-14-2024 History of Presen t illness Narrative Reason for Visit Follow up HPI Reinier is a 88-year-old female with a history of atrial fibrillation, presenting for follow-up. Reinier was recently seen by the [facility] on November 04. She is currently on anticoagulation therapy. Recent changes to her medication regimen include the addition of amiodarone on Thursday. She is also taking losartan 50 mg twice daily. carvedilol was discontinued due to bradycardia, and metoprolol 25 mg twice daily was initiated. Reinier has been experiencing fluctuations in weight, with a baseline of 139-140 lbs. She recently gained 8 lbs, reaching 148 lbs, which prompted the use of Lasix 40 mg for three consecutive days. This resulted in a decrease in weight but also led to an episode of atrial fibrillation. Reinier was subsequently instructed to take Lasix 20 mg as needed. She is not currently taking potassium supplements. Reinier has been experiencing a persistent cough, which improves with diuresis. She also reports episodes of soft, watery stools, particularly after taking Lasix. She suspects a possible correlation with dairy consumption, specifically milk. She denies any recent changes in diet or fluid intake, consuming approximately 3-4 bottles of spring water daily. She has reduced her intake of coffee and tea and occasionally drinks orange juice. She is monitoring her sodium intake and elevates her feet at night. Social History Tobacco Use Smoking status: Former Current packs/day: 0.00 Types: Cigarettes Start date: 07/06/1971 Quit date: 07/06/1976 Years since quittin.3 Smokeless tobacco: Never Tobacco comments: Quit 4-5 cig per day Vaping Use Vaping status: Never Used Substance Use Topics Alcohol use: No Drug use: No Past medical history, appointments, medications, allergies reviewed. Pertinent Lab/Diagnostic Studies are reviewed and discussed today Current Outpatient Medications: amiodarone (PACERONE) 200 mg tablet ondansetron (ZOFRAN) 4 mg tablet losartan (COZAAR) 50 mg tablet atorvastatin (LIPITOR) 20 mg tablet levothyroxine (LEVOXYL) 25 mcg tablet omeprazole (PRILOSEC) 40 mg capsule cyanocobalamin, vitamin B-12, (VITAMIN B12 ORAL) denosumab (PROLIA SUBCUTANEOUS) ferrous sulfate 325 mg (65 mg iron) tablet Spirometers and Accessories magdalena XARELTO 15 mg tablet brimonidine (ALPHAGAN P) 0.15 % ophthalmic solution timolol maleate (TIMOPTIC) 0.5 % ophthalmic solution >Zippered Compression Knee High 30-40 mm custom latanoprost (XALATAN) 0.005 % ophthalmic solution TRAVATAN Z 0.004 % Drop Cholecalciferol, Vitamin D3, 2,000 unit ORAL Cap metoprolol tartrate, short acting, (LOPRESSOR) 25 mg tablet vibegron (GEMTESA) 75 mg tablet hydrOXYzine HCl (ATARAX) 25 mg tablet furosemide (LASIX) 20 mg tablet hydrALAZINE (APRESOLINE) 10 mg tablet potassium chloride (K-TAB) 10 mEq tablet Health Maintenance Depression Screening Anxiety Screening Shingrix Vaccine(1 of 2) RSV Vaccine(1 - 1-dose 75+ series) DTaP,Tdap,Td Vaccine(3 - Td or Tdap) Covid-19 Vaccine( - season) Advance Directive Discussion@ Review Of Systems Constitutional: (No entries) Head: (No entries) Eyes: (No entries) Ears/Nose/Mouth/Throat: (No entries) Neck: (No entries) Cardiovascular: (-) chest pain Respiratory: (+) cough, (-) shortness of breath Gastrointestinal: (+) watery stool Genitourinary: (No entries) Musculoskeletal: (No entries) Skin: (No entries) Neurological: (-) dizziness Psychiatric: (No entries) Endocrine: (No entries) Hematologic/Lymphatic: (No entries) Physical Exam BP 158/100 Pulse 119 Resp 16 Wt 62.8 kg (138 lb 6.4 oz) SpO2 99% BMI 25.31 kg/m GENERAL: NAD, alert and oriented. SKIN: Unremarkable, no rash or skin lesions. HEAD: Normocephalic. EYES: PERRLA, EOMI, conjunctiva clear. EARS: External ears normal, canals clear, TM's normal. NOSE/SINUSES: Nares normal. Septum midline. OROPHARYNX: Lips, mucosa, and tongue normal, good dentition. No oral lesions noted. NECK: Supple, no lymphadenopathy, normal thyroid, no carotid bruits. LUNGS: Clear to auscultation bilaterally, no wheezes/rhonchi/rales. HEART: Tachycardic, regular rhythm, no murmurs. No ectopy. EXTREMITIES: No deformities, no skin discoloration, no edema. NEURO: Awake, alert and oriented x3, cranial nerves II-XII grossly intact, normal gait, no involuntary motions. Labs: - CBC: Hemoglobin 11 g/dL Assessment and Plan 1. Permanent atrial fibrillation (HCC) (I48.21) Persistent tachycardia with heart rate recorded at 119 bpm today. Recent hospitalization due to high heart rate and low blood pressure. Currently on amiodarone 200 mg BID, initiated on Thursday. - Initiate metoprolol 25 mg BID to manage heart rate. - Monitor heart rate closely; follow-up EKG scheduled for tomorrow. - Follow-up appointment with HEYDI Spencer on November 25 at 1400. 2. Acute on chronic combined systolic and diastolic congestive heart failure (HCC) (I50.43) Recent weight gain of 8 lbs led to increased fluid retention and exacerbation of CHF symptoms, including cough and lower extremity edema. Previous diuretic regimen of Lasix 40 mg for 3 consecutive days was too aggressive, leading to dehydration and AFib exacerbation. - Adjust Lasix to 20 mg PRN based on fluid retention and weight monitoring. - Monitor for signs of fluid overload, including increased cough and edema. - Maintain fluid intake at approximately 48-64 oz per day. 3. Essential (primary) hypertension (I10) Blood pressure recorded at 150/100 mmHg today. Currently on losartan 50 mg BID. - Continue losartan 50 mg BID. - Monitor blood pressure at home; adjust antihypertensive therapy as needed based on response to metoprolol and amiodarone. 4. Diarrhea, unspecified type (R19.7) Intermittent episodes of watery stools, possibly related to lactose intolerance or diuretic use. - Trial lactose-free milk and monitor for improvement in symptoms. - Monitor stool consistency and frequency; report any persistent or worsening symptoms. 5. jail current use of diuretic (Z79.899) Currently on Lasix with recent adjustments to dosing regimen to prevent dehydration and exacerbation of AFib. - Continue Lasix 20 mg PRN based on fluid retention and weight monitoring. - Monitor for signs of dehydration and adjust dosing as needed. 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 - Continue current anticoagulant therapy. - Monitor for signs of bleeding or adverse effects. Voice recognition software was used to compose this office note. Please excuse any unintended typographical errors. Recording using [employer] Online software for draft documentation of the visit was discussed with the patient/authorized account service representative; all questions welcomed and answered. Patient/authorized account service representative agreed to proceed Anay Schuler MD documented in this encounter [facility] 11-14-2024 Instructions Anay Schuler MD - 11/14/2024 1:58 PM EDT We discussed your heart health and current medications: - Start taking Metoprolol 25 mg twice daily to help lower your heart rate. This prescription has been sent to [facility]. If you pick it up in the evening, take one dose today and begin taking two doses daily starting tomorrow. Do not use any leftover Metoprolol at home, as the dosage may differ. - Continue taking Losartan 50 mg twice daily as prescribed. - Continue taking Amiodarone 200 mg twice daily. This medication was started recently and will take time to fully take effect. It will gradually help regulate your heart rhythm. - Continue taking your blood thinner as prescribed. - Avoid taking Carvedilol, as it has been discontinued. - Monitor your heart rate and blood pressure at home using a pulse oximeter. If your heart rate drops below 60 or you experience symptoms such as dizziness, confusion, chest pain, or shortness of breath, please contact our office immediately. We discussed your fluid retention and Lasix (diuretic) use: - Take Lasix 20 mg as needed (PRN) for fluid retention. Avoid taking higher doses or consecutive daily doses unless directed, as this can worsen your condition. Monitor for signs of fluid retention, such as swelling in your legs or increased coughing. - You no longer need to take potassium supplements, as they have been discontinued. - Continue drinking approximately three 16.5 oz bottles of water daily. Avoid excessive fluid intake, as it may strain your kidneys. We discussed your cough: - Your cough may be related to fluid retention or postnasal drip. Monitor your symptoms, and if your cough worsens or you experience shortness of breath, please contact our office. We discussed your bowel movements: - Your occasional watery stools may be related to Lasix or lactose intolerance. Avoid milk and dairy products for now, and try lactose-free alternatives to see if this improves your symptoms. - If your symptoms persist or worsen, please let us know. 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 - You have a follow-up appointment with Nurse Practitioner Ning Spencer on November 25 at 2:00 PM. Please keep this appointment. Please continue monitoring your symptoms closely and let us know if you have any concerns or if your condition changes. documented in this encounter [facility] 11-14-2024 Telephone encounter Note Patient's daughter calls back and states that patient can come in early for appointment. Patient will be in 12:30. Yolette Pérez RN [facility] 11-14-2024 Miscellaneous Notes Patient's daughter calls back and states that patient can come in early for appointment. Patient will be in 12:30/. Yolette Pérez RN TC to patient to inquire is patient willing to come in sooner? (1230, 1?) If agreeable just leave original appt at 340 time. Unable to reach patient. Left VM to return call to office. Yany Nieto MA documented in this encounter [facility] 11-14-2024 Telephone encounter Note TC to patient to inquire is patient willing to come in sooner? (1230, 1?) If agreeable just leave original appt at 340 time. Unable to reach patient. Left VM to return call to office. Yany Nieto MA [facility] 11-11-2024 Evaluation note Diagnosis Onset Date Resolution CHF (congestive heart failure) acute November 11, 2024 1 :54pm HLD (hyperlipidemia) acute November 11, 2024 1:54pm Essential hypertension chronic Ma y 2024 1:54pm Atrial fibrillation with RVR inactive November 11, 2024 1 :54pm CHF (congestive heart failure) acute November 25, 2024 1 :41pm HLD (hyperlipidemia) acute November 25, 2024 1:41pm Essential hypertension chronic Ma y 2024 1:41pm Atrial fibrillation with RVR inactive November 25, 2024 1 :41pm CHF (congestive heart failure) acute January 09, 2025 11:29am Paroxysmal atrial fibrillation acute January 09, 2025 11:29am Essential hypertension chronic Ju ly 2024 11:29am Mixed incontinence acute February 22, 2025 1:23pm Nocturia acute February 22, 2 025 1:23pm Overactive bladder acute February 22, 2025 1:23pm Urinary tract infection acute A ugust 2024 1:23pm [facility] Work Phone: [phone]) 824-794205-16-2025 NoteHNO ID: [id number] Author: DACIA PITT, JUMA Service: ? Author Type: Registered Nurse Type: Progress Notes Filed: 11/11/2024 09:53 Note Text: Transitional Care Management (TCM) Follow-Up Note PCP Update / Actionable Items N/A - No specialty updates needed Patient Source: In-Network Discharge Follow-up outreach: TCM enrolled patient Outreach Summary: HR is 120-130 during PCC call. Patient has an appt with Dr. Bosch's office Cardiology in [place] today. Daughter explains that patient's HR does increase during exercise such as yesterday with PT. Contact: Contact made with patient: Yes Spoke to: Patient Validation: Validated the person spoken to is actively involved in the patient's care. The patient was identified by Name and Date of . I'd like to get an update on how you're doing since our last phone call. Is now a good time to talk? Yes Symptoms: Are you feeling about the same, better or worse since leaving the hospital? Better Weekly Outreach: 2nd Outreach Medications: Do you have any questions about taking your medications, including which medications you should be on, or do you need refills on your medications? No Patient Questions / Concerns: Do you have any questions related to your discharge? No Appointment / TCM Follow-Up: Have you had a follow-up visit with your Primary Care Provider or Specialist since you were discharged? Yes Do you need any assistance with scheduling or changing your follow-up appointments? Patient already has an appointment scheduled SDOH: Has Food and Housing been addressed in [employer] in the past 3 months? Yes EDUCATION--: Patient and family educated on issues/questions related to reason for admission, transition of care topics, and follow-up needed upon discharge. Utilization Education - Where to go for Care Where to Go for Care Dacia Pitt RN November 11, 2024 9:40 [facility]05-16-2025 History of Present illness Narrative* Dacia Pitt RN - 11/11/2024 9:38 AM EDT Transitional Care Management (TCM) Follow-Up Note PCP Update / Actionable Items N/A - No specialty updates needed Patient Source: In-Network Discharge Follow-up outreach: TCM enrolled patient Outreach Summary: HR is 120-130 during PCC call. Patient has an appt with Dr. Bosch's office Cardiology in [place] today. Daughter explains that patient's HR does increase during exercise such as yesterday with PT. Contact: Contact made with patient: Yes Spoke to: Patient Validation: Validated the person spoken to is actively involved in the patient's care. The patient was identified by Name and Date of . I'd like to get an update on how you're doing since our last phone call. Is now a good time to talk? Yes Symptoms: Are you feeling about the same, better or worse since leaving the hospital? Better Weekly Outreach: 2nd Outreach Medications: Do you have any questions about taking your medications, including which medications you should be on, or do you need refills on your medications? No Patient Questions / Concerns: Do you have any questions related to your discharge? No Appointment / TCM Follow-Up: Have you had a follow-up visit with your Primary Care Provider or Specialist since you were discharged? Yes Do you need any assistance with scheduling or changing your follow-up appointments? Patient alreadyhas an appointment scheduled SDOH: Has Food and Housing been addressed in [employer] in the past 3 months? Yes EDUCATION--: Patient and family educated on issues/questions related to reason for admission, transition of care topics, and follow-up needed upon discharge. Utilization Education - Where to go for Care Where to Go for Care Dacia Pitt RN November 11, 2024 9:40 AM [facility] NotePatient Outreach ([facility]) REINIER ELIZABETH ([id number]) 1935 F NFR Date Time Provider Department 11/11/24 DACIA PITTG During your visit today, we recorded the following information about you: Dacia Pitt RN 11/11/2024 9:53 AM Signed Transitional Care Management (TCM) Follow-Up Note PCP Update / Actionable Items N/A - No specialty updates needed Patient Source: In-Network Discharge Follow-up outreach: TCM enrolled patient Outreach Summary: HR is 120-130 during PCC call. Patient has an appt with Dr. Bosch's office Cardiology in [place] today. Daughter explains that patient's HR does increase during exercise such as yesterday with PT. Contact: Contact made with patient: Yes Spoke to: Patient Validation: Validated the person spoken to is actively involved in the patient's care. The patient was identified by Name and Date of . I'd like to get an update on how you're doing since our last phone call. Is now a good time to talk? Yes Symptoms: Are you feeling about the same, better or worse since leaving the hospital? Better Weekly Outreach: 2nd Outreach Medications: Do you have any questions about taking your medications, including which medications you should be on, or do you need refills on your medications? No Patient Questions / Concerns: Do you have any questions related to your discharge? No Appointment / TCM Follow-Up: Have you had a follow-up visit with your Primary Care Provider or Specialist since you were discharged? Yes Do you need any assistance with scheduling or changing your follow-up appointments? Patient already has an appointment scheduled SDOH: Has Food and Housing been addressed in [employer] in the past 3 months? Yes EDUCATION--: Patient and family educated on issues/questions related to reason for admission, transition of care topics, and follow-up needed upon discharge. Utilization Education - Where to go for Care Where to Go for Care Dacia Pitt RN November 11, 2024 9:40 AM Allergies As of Date: 11/11/2024 Noted Allergy Reaction MACROBID (NITROFURANTOIN MONOHYD/*10/08/2024 5 - Intolerance Comments: N/V, shakey, diarrhea AMANTADINE 05/09/2005 2 - Rash CAPOTEN (CAPTOPRIL) 05/09/2005 2 - Rash CEPHALEXIN 05/09/2005 2 - Rash ERYTHROMYCIN 05/09/2005 2 - Rash HCTZ (THIAZIDES) 03/26/2015 14 - Other: See Comments Comments: leg cramps IVP DYE (IODINE) 05/12/2005 2 - Rash NORVASC (AMLODIPINE BESYLATE) 08/27/2017 7 - Swelling Date Reviewed: 10/21/2024 Reviewed by: Erika Kwan APRN.BILLING AND ACCOUNTING STAFF ASSISTANT - Fully Assessed Reason for Visit: Transition Of Care [4074] Prescriptions as of 11/11/2024 - ondansetron (ZOFRAN) 4 mg tablet Take 1 tablet by mouth every 8 hours as needed for nausea/vomiting. - losartan (COZAAR) 50 mg tablet Take 1 tablet by mouth two times a day. - atorvastatin (LIPITOR) 20 mg tablet Take 1 tablet by mouth every 48 hours. - levothyroxine (LEVOXYL) 25 mcg tablet Take 1 tablet by mouth once daily. Take on empty stomach. For Thyroid - omeprazole (PRILOSEC) 40 mg capsule Take 1 capsule by mouth daily before breakfast. 1/2 hr before meal. - cyanocobalamin, vitamin B-12, (VITAMIN B12 ORAL) Take by mouth once daily. - denosumab (PROLIA SUBCUTANEOUS) Inject subcutaneously once every 6 months. - vibegron (GEMTESA) 75 mg tablet Take 1 tablet by mouth once daily. - hydrOXYzine HCl (ATARAX) 25 mg tablet Take 1 tablet by mouth every 4 hours as needed for itching/rash. - furosemide (LASIX) 20 mg tablet Take 1 tablet by mouth every other day. - ferrous sulfate 325 mg (65 mg iron) tablet Take 1 tablet by mouth once daily. - hydrALAZINE (APRESOLINE) 10 mg tablet Take 1 tablet by mouth four times daily. - carvedilol (COREG) 12.5 mg tablet Take 12.5 mg by mouth two times a day with meals. - potassium chloride (K-TAB) 10 mEq tablet Take 1 tablet by mouth twice daily. - Spirometers and Accessories magdalena Use 3 times a day, each time blow into it for 10 reps - XARELTO 15 mg tablet Take 15 mg by mouth daily with dinner. - brimonidine (ALPHAGAN P) 0.15 % ophthalmic solution Use 1 Drop in the right eye twice daily. - timolol maleate (TIMOPTIC) 0.5 % ophthalmic solution Use 1 Drop in the right eye twice daily. - >Zippered Compression Knee High 30-40 mm custom CUSTOM MEASURE FOR KNEE HIGH ANGELO COMPRESSION STOCKINGS, 30-40 MM, WITH ZIPPERS PLEASE. IF UNABLE, PLEASE REFER TO [facility] AT [facility]. DX: EDEMA - latanoprost (XALATAN) 0.005 % ophthalmic solution 1 Drop daily at bedtime. - TRAVATAN Z 0.004 % Drop daily at bedtime. - Cholecalciferol, Vitamin D3, 2,000 unit ORAL Cap Take one(1) tablet two(2) times daily. Problem List As Of Date 11/11/2024 Noted Resolved Unspecified osteoporosis [M81.0] 06/10/2010 HYPERLIPIDEMIA NEC/NOS [E78.5] 09/25/2015 Essential hypertension [I10] OVERWEIGHT [E66.9 (more content not included)...[facility] 11-08-2024 Telephone encounter Note* Telephone Encounter - Anay Schuler MD - 11/08/2024 5:01 PM EDT Agree with follow up Regards, Anay Schuler MD [facility]05-13-2025 Miscellaneous Notes* Telephone Encounter - Anay Schuler MD - 11/08/2024 5:01 PM EDT Agree with follow up Regards, Anay Schuler MD * Telephone Encounter - Abimbola Abbott LPN - 11/08/2024 1:29 PM EDT Harjinder from [facility] calling with PT plan of care, 2 visits weekly for 3 weeks working on functional mobility. Patient BP was 187/78 being monitored by Interior Design Professional. No need for return call. [facility] Telephone encounter Note * Telephone Encounter - Abimbola Abbott LPN - 11/08/2024 1:29 PM EDT Harjinder from [facility] calling with PT plan of care, 2 visits weekly for 3 weeks working on functional mobility. Patient BP was 187/78 being monitored by Interior Design Professional. No need for return call. [facility]05-12-2025 Telephone encounter Note* Telephone Encounter - Brianne Toribio RN - 11/07/2024 11:33 AM EDT Allyson DENNISON calling from [facility] to report plan of care for patient and SN will visit patient 2 times a week for two week and 1 times a week for two weeks. SN will work with patient on medication management and education on A-Fib, HTN, and HF. Brianne Toribio RN [facility]05-12-2025 Miscellaneous Notes* Telephone Encounter - Brianne Toribio RN - 11/07/2024 11:33 AM EDT Allyson DENNISON calling from [facility] to report plan of care for patient and SN will visit patient 2 times a week for two week and 1 times a week for two weeks. SN will work with patient on medication management and education on A-Fib, HTN, and HF. Brianne Toribio RN [facility]25 NoteHNO ID: [id number] Author: CHACORTA ROBLEDO MA Service: ? Author Type: Montessori Lead Teacher Type: Progress Notes Filed: 11/07/2024 10:54 Note Text: POPULATION HEALTH NAVIGATION OUTREACH Action/FYI Gaps due: AWV December HCCs No med adherence. LVM/MCM. Reason for Outreach Care Gap/HCC or Scheduling Wellness Visits Care Gaps due: Medicare Annual Wellness Visit Follow-up Appointment Patient Contacted: Unable or unnecessary to reach patient: Left message for[MD]hart message sent HCC related Navigation Signature: Chacorta Robledo MA November 07, 2024 10:51 [facility]05-12-2025 History of Present illness Narrative* Chacorta Robledo MA - 11/07/2024 10:51 AM EDT POPULATION HEALTH NAVIGATION OUTREACH Action/FYI Gaps due: AWV December HCCs No med adherence. LVM/MCM. Reason for Outreach Care Gap/HCC or Scheduling Wellness Visits Care Gaps due: Medicare Annual Wellness Visit Follow-up Appointment Patient Contacted: Unable or unnecessary to reach patient: Left message Source4Style message sent HCC related Navigation Signature: Chacorta Robeldo MA November 07, 2024 10:51 AM [facility] NotePatient Outreach (NETNAV) REINIER ELIZABETH ([id number]) 1935 F NFR Date Time Provider Department 11/07/24 CHACORTA ROBLEDO NETBEKAHV During your visit today, we recorded the following information about you: Chacorta Robledo MA 11/07/2024 10:54 AM Signed POPULATION HEALTH NAVIGATION OUTREACH Action/FYI Gaps due: AWV December HCCs No med adherence. LVM/MCM. Reason for Outreach Care Gap/HCC or Scheduling Wellness Visits Care Gaps due: Medicare Annual Wellness Visit Follow-up Appointment Patient Contacted: Unable or unnecessary to reach patient: Left message for[MD]hart message sent HCC related Navigation Signature: Chacorta Robledo MA November 07, 2024 10:51 AM Allergies As of Date: 11/07/2024 Noted Allergy Reaction MACROBID (NITROFURANTOIN MONOHYD/*10/08/2024 5 - Intolerance Comments: N/V, shakey, diarrhea AMANTADINE 05/09/2005 2 - Rash CAPOTEN (CAPTOPRIL) 05/09/2005 2 - Rash CEPHALEXIN 05/09/2005 2 - Rash ERYTHROMYCIN 05/09/2005 2 - Rash HCTZ (THIAZIDES) 03/26/2015 14 - Other: See Comments Comments: leg cramps IVP DYE (IODINE) 05/12/2005 2 - Rash NORVASC (AMLODIPINE BESYLATE) 08/27/2017 7 - Swelling Date Reviewed: 10/21/2024 Reviewed by: Erika Kwan APRN.BILLING AND ACCOUNTING STAFF ASSISTANT - Fully Assessed Reason for Visit: Population Health Navigation Outreach [3910] Cmt: Adama fuentes Prescriptions as of 11/07/2024 - ondansetron (ZOFRAN) 4 mg tablet Take 1 tablet by mouth every 8 hours as needed for nausea/vomiting. - losartan (COZAAR) 50 mg tablet Take 1 tablet by mouth two times a day. - atorvastatin (LIPITOR) 20 mg tablet Take 1 tablet by mouth every 48 hours. - levothyroxine (LEVOXYL) 25 mcg tablet Take 1 tablet by mouth once daily. Take on empty stomach. For Thyroid - omeprazole (PRILOSEC) 40 mg capsule Take 1 capsule by mouth daily before breakfast. 1/2 hr before meal. - cyanocobalamin, vitamin B-12, (VITAMIN B12 ORAL) Take by mouth once daily. - denosumab (PROLIA SUBCUTANEOUS) Inject subcutaneously once every 6 months. - vibegron (GEMTESA) 75 mg tablet Take 1 tablet by mouth once daily. - hydrOXYzine HCl (ATARAX) 25 mg tablet Take 1 tablet by mouth every 4 hours as needed for itching/rash. - furosemide (LASIX) 20 mg tablet Take 1 tablet by mouth every other day. - ferrous sulfate 325 mg (65 mg iron) tablet Take 1 tablet by mouth once daily. - hydrALAZINE (APRESOLINE) 10 mg tablet Take 1 tablet by mouth four times daily. - carvedilol (COREG) 12.5 mg tablet Take 12.5 mg by mouth two times a day with meals. - potassium chloride (K-TAB) 10 mEq tablet Take 1 tablet by mouth twice daily. - Spirometers and Accessories magdalena Use 3 times a day, each time blow into it for 10 reps - XARELTO 15 mg tablet Take 15 mg by mouth daily with dinner. - brimonidine (ALPHAGAN P) 0.15 % ophthalmic solution Use 1 Drop in the right eye twice daily. - timolol maleate (TIMOPTIC) 0.5 % ophthalmic solution Use 1 Drop in the right eye twice daily. - >Zippered Compression Knee High 30-40 mm custom CUSTOM MEASURE FOR KNEE HIGH ANGELO COMPRESSION STOCKINGS, 30-40 MM, WITH ZIPPERS PLEASE. IF UNABLE, PLEASE REFER TO [facility] AT [facility]. DX: EDEMA - latanoprost (XALATAN) 0.005 % ophthalmic solution 1 Drop daily at bedtime. - TRAVATAN Z 0.004 % Drop daily at bedtime. - Cholecalciferol, Vitamin D3, 2,000 unit ORAL Cap Take one(1) tablet two(2) times daily. 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 Urgency of urination [R39.15] 02/20/2009 06/14/2020 Urge incontinence [N39.41] 02/20/2009 08/06/2016 Female stress incontinence [N39.3] 02/20/2009 08/06/2016 Nocturia [R35.1] 02/20/2009 08/06/2016 Symptomatic menopausal or female climacteric st*02/20/2009 08/06/2016 Postmenopausal atrophic vaginitis [N95.2] 02/20/2009 06/14/2020 Disorder of bone and cartilage, unspecified [M8*02/20/2009 03/24/2012 Osteoporosis with current pathological fracture*06/10/2010 Vitamin D deficiency [E55.9] 06/13/2010 Incisional hernia [K43.2] 12/14/2012 08/06/2016 Mixed hyperlipidemia [E78.2] 08/06/2016 Pedal edema [R60.0] 12/04/2016 Pulmonary hypertension (HCC) [I27.20] 05/07/2017 Vulvar intraepithelial neoplasia III (LARY III) *06/14/2020 Stage 3 chronic kidney disease (HCC) [N18.30] 06/11/2021 Hypertensive kidney disease with stage 3 chroni*12/06/2021 Permanent atrial fibrillation (HCC) [I48.21] 04/28/2022 Gastrointestinal hemorrhage [K92.2] 06/11/2022 Hypomagnesemia [E83.42] 06/11/2022 A (more content not included)...[facility]05-09-2025 NoteHNO ID: [id number] Author: DACIA PITT RN Service: ? Author Type: Registered Nurse Type: Progress Notes Filed: 11/04/2024 09:19 Note Text: Transition Care Management (TCM) Initial Outreach PCP Update / Actionable Items N/A - No specialty updates needed Patient Source: [id number] (OON) Discharge Outreach Summary: Patient will see her commonwealth attorney Dr. Kingston next Thursday. Patient feels well today. No further concerns or questions. Patient understands discharge instructions. Patient will call on her own to schedule PCP hospital follow up. Patient discharged from [facility] Discharge date: 11/04/2024 Admitted for: 1. CHF exacerbation 2. A-fib with RVR 3. GERI on CKD Readmission Risk: N/A Value-Based Contract: Adama MELISSA Contact: Contact made with patient: Yes Hi, my name is Dacia Pitt RN and I am calling from the [facility] on behalf of your Primary Care Provider, Anay Schuler MD. I understand you were recently in the hospital, so I am calling to check in with you to ensure you are feeling well now that you are home. May I ask you a few questions related to your hospital stay and well-being? Yes Spoke to: Patient Validation: Validated the person spoken to is actively involved in the patient's care. The patient was identified by Name and Date of . Symptoms: Are you feeling about the same, better or worse since leaving the hospital? Better Medications: Do you have any questions about taking your medications, including which medications you should be on, or do you need refills on your medications? No Medication Review: Declined at this time per patient preference Discharge Instructions: Your Discharge Instructions / After Visit Summary (AVS) are important in guiding you through the recovery process. Do you have any questions related to your discharge instructions? No Home Care: Were you discharged with home care? Yes Has your Home Care Agency contacted you? Yes Name of Home Care Agency: [facility] Start of Home Care services date: 11/05/2024 Equipment: Do you have all the necessary equipment and supplies needed at your home? Not applicable Social: Your mental health is as important to us as your physical health. Would you mind answering a few questions on this topic? Yes On the Storyboard review: Food Insecurity, Transportation, Depression, Housing, and Financial Strain: Complete any SDOHs, listed above, if not addressed in the past 3 months. If all SDOHs, listed above, have been addressed within the last 3 months, confirm responses and update any SDOHs that have changed. Action Taken: No needs verbalized. No action required. Follow-Up Appointment: [Appointment / TCM Follow-up within 14 days] I would like to help you schedule a hospital follow-up virtual or telephone visit with your PCP. This is a great way for you to connect with your provider to ensure you have safely transitioned home. If you are agreeable, I will send your request to a fisheries enforcement officer who will contact and assist you with that appointment. This will give you an opportunity to ask any questions or address any concerns you may have with your PCP. Inform the patient that if they have any questions or concerns prior to that appointment, to call their PCP's office right away. Appointment Action: No action required; patient already has appointment scheduled. Education details: Patient and family educated on issues/questions related to reason for admission, transition of care topics, and follow-up needed upon discharge. Dacia Pitt RN November 04, 2024 9:18 [facility]05-09-2025 History of Present illness Narrative* Dacia Pitt RN - 11/04/2024 9:10 AM EDT Transition Care Management (TCM) Initial Outreach PCP Update / Actionable Items N/A - No specialty updates needed Patient Source: [id number] (OON) Discharge Outreach Summary: Patient will see her commonwealth attorney Dr. Kingston next Thursday. Patient feels well today. No further concerns or questions. Patient understands discharge instructions. Patient will call on her own to schedule PCP hospital follow up. Patient discharged from [facility] Discharge date: 11/04/2024 Admitted for: 1. CHF exacerbation 2. A-fib with RVR 3. GERI on CKD Readmission Risk: N/A Value-Based Contract: Adama MELISSA Contact: Contact made with patient: Yes Hi, my name is Dacia Pitt RN and I am calling from the [facility] on behalf of your Primary Care Provider, Anay Schuler MD. I understand you were recently in the hospital, so I am calling to check in with you to ensure you are feeling well now that you are home. May I ask you a few questions related to your hospital stay and well-being? Yes Spoke to: Patient Validation: Validated the person spoken to is actively involved in the patient's care. The patient was identified by Name and Date of . Symptoms: Are you feeling about the same, better or worse since leaving the hospital? Better Medications: Do you have any questions about taking your medications, including which medications you should be on, or do you need refills on your medications? No Medication Review: Declined at this time per patient preference Discharge Instructions: Your Discharge Instructions / After Visit Summary (AVS) are important in guiding you through the recovery process. Do you have any questions related to your discharge instructions? No Home Care: Were you discharged with home care? Yes Has your Home Care Agency contacted you? Yes Name of Home Care Agency: [facility] Start of Home Care services date: 11/05/2024 Equipment: Do you have all the necessary equipment and supplies needed at your home? Not applicable Social: Your mental health is as important to us as your physical health. Would you mind answering a few questions on this topic? Yes On the Storyboard review: Food Insecurity, Transportation, Depression, Housing, and Financial Strain: Complete any SDOHs, listed above, if not addressed in the past 3 months. If all SDOHs, listed above, have been addressed within the last 3 months, confirm responses and update any SDOHs that have changed. Action Taken: No needs verbalized. No action required. Follow-Up Appointment: [Appointment / TCM Follow-up within 14 days] I would like to help you schedule a hospital follow-up virtual or telephone visit with your PCP. This is a great way for you to connect with your provider to ensure you have safely transitioned home.If you are agreeable, I will send your request to a fisheries enforcement officer who will contact and assist you with that appointment. This will give you an opportunity to ask any questions or address any concerns youmay have with your PCP. Inform the patient that if they have any questions or concerns prior to that appointment, to call their PCP's office right away. Appointment Action: No action required; patient already has appointment scheduled. Education details: Patient and family educated on issues/questions related to reason for admission,transition of care topics, and follow-up needed upon discharge. Dacia Pitt RN November 04, 2024 9:18 AM [facility] NotePatient Outreach (AMBCMG) REINIER ELIZABETH ([id number]) 1935 F NFR Date Time Provider Department 11/04/24 DACIA PITT During your visit today, we recorded the following information about you: Dacia Pitt RN 11/04/2024 9:19 AM Signed Transition Care Management (TCM) Initial Outreach PCP Update / Actionable Items N/A - No specialty updates needed Patient Source: [id number] (OON) Discharge Outreach Summary: Patient will see her commonwealth attorney Dr. Kingston next Thursday. Patient feels well today. No further concerns or questions. Patient understands discharge instructions. Patient will call on her own to schedule PCP hospital follow up. Patient discharged from [facility] Discharge date: 11/04/2024 Admitted for: 1. CHF exacerbation 2. A-fib with RVR 3. GERI on CKD Readmission Risk: N/A Value-Based Contract: Adama MELISSA Contact: Contact made with patient: Yes Hi, my name is Dacia Pitt RN and I am calling from the [facility] on behalf of your Primary Care Provider, Anay Schuler MD. I understand you were recently in the hospital, so I am calling to check in with you to ensure you are feeling well now that you are home. May I ask you a few questions related to your hospital stay and well-being? Yes Spoke to: Patient Validation: Validated the person spoken to is actively involved in the patient's care. The patient was identified by Name and Date of . Symptoms: Are you feeling about the same, better or worse since leaving the hospital? Better Medications: Do you have any questions about taking your medications, including which medications you should be on, or do you need refills on your medications? No Medication Review: Declined at this time per patient preference Discharge Instructions: Your Discharge Instructions / After Visit Summary (AVS) are important in guiding you through the recovery process. Do you have any questions related to your discharge instructions? No Home Care: Were you discharged with home care? Yes Has your Home Care Agency contacted you? Yes Name of Home Care Agency: [facility] Start of Home Care services date: 11/05/2024 Equipment: Do you have all the necessary equipment and supplies needed at your home? Not applicable Social: Your mental health is as important to us as your physical health. Would you mind answering a few questions on this topic? Yes On the Storyboard review: Food Insecurity, Transportation, Depression, Housing, and Financial Strain: Complete any SDOHs, listed above, if not addressed in the past 3 months. If all SDOHs, listed above, have been addressed within the last 3 months, confirm responses and update any SDOHs that have changed. Action Taken: No needs verbalized. No action required. Follow-Up Appointment: [Appointment / TCM Follow-up within 14 days] I would like to help you schedule a hospital follow-up virtual or telephone visit with your PCP. This is a great way for you to connect with your provider to ensure you have safely transitioned home. If you are agreeable, I will send your request to a fisheries enforcement officer who will contact and assist you with that appointment. This will give you an opportunity to ask any questions or address any concerns you may have with your PCP. Inform the patient that if they have any questions or concerns prior to that appointment, to call their PCP's office right away. Appointment Action: No action required; patient already has appointment scheduled. Education details: Patient and family educated on issues/questions related to reason for admission, transition of care topics, and follow-up needed upon discharge. Dacia Pitt RN November 04, 2024 9:18 AM Allergies As of Date: 11/04/2024 Noted Allergy Reaction MACROBID (NITROFURANTOIN MONOHYD/*10/08/2024 5 - Intolerance Comments: N/V, shakey, diarrhea AMANTADINE 05/09/2005 2 - Rash CAPOTEN (CAPTOPRIL) 05/09/2005 2 - Rash CEPHALEXIN 05/09/2005 2 - Rash ERYTHROMYCIN 05/09/2005 2 - Rash HCTZ (THIAZIDES) 03/26/2015 14 - Other: See Comments Comments: leg cramps IVP DYE (IODINE) 05/12/2005 2 - Rash NORVASC (AMLODIPINE BESYLATE) 08/27/2017 7 - Swelling Date Reviewed: 10/21/2024 Reviewed by: Erika Kwan APRN.BILLING AND ACCOUNTING STAFF ASSISTANT - Fully Assessed Prescriptions as of 11/04/2024 - ondansetron (ZOFRAN) 4 mg tablet Take 1 tablet by mouth every 8 hours as needed for nausea/vomiting. - losartan (COZAAR) 50 mg tablet Take 1 tablet by mouth two times a day. - atorvastatin (LIPITOR) 20 mg tablet Take 1 tablet by mouth every 48 hours. - levothyroxine (LEVOXYL) 25 mcg tablet Take 1 tablet by mouth once daily. Take on empty stomach. For Thyroid - omeprazole (PRILOSEC) 40 mg capsule Take 1 capsule by mouth daily before breakfast. 1/2 hr before meal. - cyanocobalamin, vitamin B-12, (VITAMIN B1 (more content not included)... [facility]05-08-2025 Telephone encounter Note* Telephone Encounter - Haydee Mccauley MA - 11/03/2024 2:03 PM EDT Karen notified. [facility]05-08-2025 Miscellaneous Notes* Telephone Encounter - Haydee Mccauley MA - 11/03/2024 2:03 PM EDT Karen notified. * Telephone Encounter - Silvio Drake APRN.CNP - 11/03/2024 1:20 PM EDT Agree to follow and ok with orders. Patient also needs a hospital follow up. Thank you Silvio Drake APRN.CNP * Telephone Encounter - Brianne Toribio RN - 11/03/2024 10:54 AM EDT Karen with [facility] calls to ask if provider would be willing to follow their HH orders for SN, PT, OT. Patient is discharging home today from [facility] PCU after being treated for A-fib and Renal Failure. Call back number is [phone]. Brianne Toribio RN documented [facility] Telephone encounter Note * Telephone Encounter - Silvio Drake APRN.CNP - 11/03/2024 1:20 PM EDT Agree to follow and ok with orders. Patient also needs a hospital follow up. Thank you Silvio Drake APRN.CNP [facility]05-08-2025 Discharge summary Author Rory Trevizo [facility] Note Date/Time November 03, 2024 11:11a m [facility] Medical Records Department [address] [place] [address] Discharge Summary 11/03/24 1107 MR#: [id number] Acct: [id number] Name: REINIER ELIZABETH Rep #:[id number] : [id number] 88 From: Rory Cardozo PCP: Dr. Anay Schuler MD Status:ADM I N Location: [place] [address] Providers Date of Admission: 10/30/24 Date of Discharge: 11/03/24 Primary Care Physician: Dr. Anay Schuler MD Consultations 10/30/24 18:25 Consult: Cardiology Routine Consulting Provider: Pb Granado Reason for Consult: symptomatic slow afib EMERGENT Consult: No MD Notified: Yes Date Notified: 10/30/24 Time Notified: 18:28 Method of Notification: Text Reason For Visit: AFIB WITH RENAL FAILURE Diagnosis Discharge Diagnosis (1) Paroxysmal atrial fibrillation: Status: Acute Code(s): I48.0 - Paroxysmal atrial fibrillation (2) Chronic kidney disease: Status: Chronic Code(s): N18.9 - Chronic kidney disease, unspecified Qualifiers: Chronic kidney disease stage: stage 4 (GFR 15-29) Qualified Code(s): N18.4 - Chronic kidney disease, stage 4 (severe) (3) Essential hypertension: Status: Chronic Code(s): I10 - Essential (primary) hypertension Plan 88-year-old female being admitted for generalized weakness, looking pale and nauseated. Patient denied chest pain, shortness of breath. Complain of severe leg weakness when ambulating any distance. 1. symptomatic A-fib with mild RVR: Patient is being admitted in PCU. Her heart rate was 130/min. Currently in low 90s. Discussed with the commonwealth attorney and amiodarone drip discontinued. Metoprolol 50 mg twice daily. On rivaroxaban. Plan for cardioversion tomorrow. Hold tomorrow morning dose of Lopressor. N.p.o. after midnight. 5/6: She converted overnight and severe sinus bradycardia. Patient was on combination of metoprolol, intermittent diltiazem and amiodarone drip which was discontinued yesterday. Metoprolol amiodarone on hold. Cardioversion is canceled. She might have sick sinus syndrome/sinus node dysfunction and option of pacemaker also discussed if bradycardia does not resolve 11/02: Heart rate is improving. Discussed with the patient's daughter and commonwealth attorney. Plan is anticipating discharge tomorrow with follow-up in the cardiology office after 1 week to discuss the options about pacemaker. 11/03: Heart rate is 4600. BP 163/100. Discussed with commonwealth attorney Dr. Jake Kingston. He said patient should be off of all beta-alejandra and blood pressure medications. Carvedilol metoprolol amiodarone discontinued. Losartan on hold. Hold potassium supplement. Patient was educated that if systolic BP is 150-160 that it is okay does not matter need to be lowered because she has bradycardia. Follow with Dr. James using 7 to 10 days with BMP 2. CAD, chronic systolic and diastolic heart failure, pulmonary hypertension: Losartan on hold due to GERI. Troponin slightly elevated flat and insignificant recent echo in October 21 shows normal EF 60% with PASP 64 mmHg consistent with moderate pulmonary hypertension. Normal atrial sizes. Patient had left heart cath in 2017. 11/01: Echo shows EF 40 to 45%. Biatrial dilatation. Mild global LV systolic dysfunction. Chest x-ray small right pleural effusion. Patient has mild chronic HFrEF and HFpEF. 11/02: Echo finding discussed with the patient's daughter. 3. GERI on CKD stage 4: Baseline creatinine runs around 1.3-1.4. Admitted with creatinine 2.27. Patient was given IV fluid hydration. Lasix was held. Patient's creatinine was 2.03 on 10/24. It was 1.43 on 10/13 11/01: BUN/creatinine 35/2.09. Creatinine shows slight improvement. Patient not on nephrotoxic medication 11/02: Creatinine is 2.35. Nephrotoxic medications including diuretic, HCTZ and VIET/ARB are contraindicated. 11/03: Creatinine 2.35, estimated creatinine clearance 15.36 mL. 4. Hypertension and dyslipidemia: On Lipitor. Losartan on hold. Blood pressure is in normal range. 11/02: Blood pressure is mildly elevated. Hydralazine 25 mg 3 times daily ordered. She has CKD stage IV. 5. Anemia of chronic disease in the setting of CKD 3 On iron therapy 6.. GERD ? Continue with PPI 4. Hypothyroidism ? TSH recently at 2.15 ? Continue with Synthroid DVT: Xarelto Discharge medication reconciliation done. Discharge follow-up instructions completed. Discharge process discussed with the patient and all questions wereanswered to patient's satisfaction. Follow with PCP in 1 to 2 weeks Total time spent, exact 35 minutes on discharge meds reconciliation, examination, coordination of care with nurses and ancillary staff, review of imaging and blood test and discussion with the patient on follow-up instructions. Clinical Impression(s) from Imaging Studies Chest X-Ray 10/30/24 12:53 IMPRESSION: Small right pleural effusion. Cardiomegaly. Reading Location: [id number] Extremity Arterial Study 10/31/24 09:32 Interpretation Summary Triphasic Doppler waveforms are noted at ankle level bilaterally. Pulse-volume recordings appear diminished at digital level on the left, but satisfactory at all other levels bilaterally. Resting ankle-brachial indices are normal bilaterally. The right digital-brachial index is normal. The left digital- brachial index is mildly diminished. Arterial flow appears normal at ankle level bilaterally, and at digital level onthe right. There is evidence of mild arterial occlusive disease at digital level on the left. Ordering Physician: Rory Trevizo Referring Physician: Anay Schuler Performed By: Roberto Munoz RVT Echocardiogram 10/31/24 10:56 Interpretation Summary The study was technically difficult. Mild global left ventricular systolic dysfunction. Estimated LVEF 40 to 45%. There is mild biatrial dilatation. Small organized anterior pericardial effusion versus fat pad. Consider CT scan for further evaluation. Ordering Physician: Jake Kingston Referring Physician: ANAY SCHULER Performed By: Karey Harden RCS Medications at Discharge Home Medications atorvastatin 20 mg tablet 20 mg PO QODAY Cholesterol 12/06/16 timolol maleate 0.5 % eye drops 1 drp RIGHT EYE BID eye drops 12/06/16 brimonidine 0.15 % eye drops 1 drp ophthalmic (eye) BID eye health 03/25/22 levothyroxine 25 mcg tablet 25 mcg PO DAILY thyroid 03/25/22 losartan 50 mg tablet 50 mg PO BID bp #180 tabs 07/11/22 Held on 11/03/24. Instructions: Hold until sees Dr. Kingston cholecalciferol (vitamin D3) 50 mcg (2,000 unit) capsule 50 mcg PO BID supplement 05/08/23 mecobalamin (vitamin B12) 1,000 mcg chewable tablet 1,000 mcg PO DAILY supplement 05/08/23 denosumab 60 mg/mL subcutaneous syringe (Prolia) 60 mg subcut [id number] bone health 08/20/23 rivaroxaban 15 mg tablet (Xarelto) 15 mg PO DINNER blood thinner #30 tabs 04/25/24 omeprazole 40 mg capsule,delayed release 20 mg PO DAILY gerd 06/14/24 potassium chloride 10 mEq capsule,extended release 20 meq PO DAILY 08/27/24 Held on 11/03/24. Instructions: hold until she sees Dr. Kingston vibegron 75 mg tablet (Gemtesa) 75 mg PO DAILY bladder 08/27/24 furosemide 20 mg tablet 20 mg PO DAILY 30 days #0 tabs 10/13/24 ferrous sulfate 325 mg (65 mg iron) tablet (Feosol) 325 mg PO DAILY 10/30/24 netarsudil 0.02 %-latanoprost 0.005 % eye drops (Rocklatan) 1 drp ophthalmic (eye) DAILY 10/30/24 ondansetron HCl 4 mg tablet 4 mg PO Q8H PRN nausea/vomiting 10/30/24 Physical Exam Narrative Seen and examined in the presence of patient's daughter. Patient leg weakness is better. PT is working with the patient. Patient does not need alf and does not want to go. No acute chest pain or shortnessof breath. Heart rate is better, high 40s. She converted to sinus rhythm 3 days ago. Physical exam General: Alert, Oriented x3, Cooperative HEENT: Atraumatic, PERRLA, EOMI, Normocephalic Oral: No Gingival or Mucosal Lesions/ Ulcerations Neck: Supple, No JVD, Negative Carotid Bruits Chest wall/Lungs: Air entry diminished in bilateral lung bases. No crepitation/rhonchi Cardiovascular: Sinus bradycardia with. Systolic murmur Abdomen: Bowel Sounds Present, Soft, Non Tender, Non-Distended : No dysuria. No renal angle tenderness. No suprapubic tenderness. Extremities: No edema, Capillary Refill Less than 3 Seconds Skin: No rashes, No breakdown Musculoskeletal: 4+/5 at bilateral knees and hip joints. ROM mildly restricted,degenerative arthritis of knees. Neurological: DTR 2/4. No acute lateralization sign. Psych/Mental Status: Flat affect. Weight / BMI Weight Weight: 152 lb 1.903 oz Body Mass Index (BMI) 27.8 ABG / Lab / Microbiology Data 11/02/24 06:05 11/02/24 06:05 Microbiology: Microbiology 10/30/24 13:23 Mucosa - Nose SARS-CoV-2, Influenza & RSV (PCR) - Final D/C Instructions Discharge Diet: Low fat / Low cholesterol and 2000 mg Sodium Diet Weight Bearing Status: Weight bearing as tolerated Call your doctor if you observe: Fever of 101 or Higher, Coldness, Increased Pain, Numbness or Tingling, Change in Color, Inability to urinate, Inability to have a bowel movement, Shortness of breath, Dizziness, Fainting spells, Swellingin the ankles, Chest pain, Prolonged hiccupping, Increased palpitations (irregular heartbeat) and Calf discomfort DC O2, CPAP, BIPAP Needs Home O2 Discharge instructions: No When: IN 2 WEEKS Meaningful Use Info Meaningful Use Meaningful Use Diagnoses (Choose all that apply): CHF CHF VIET/ARB ordered at discharge?: No Reason VIET/ARB not ordered?: Worsening renal disease Documented LVEF (%): 40 Ischemic Stroke Statin Dosing Therapy Reference: STATIN DOSE THERAPY REFERENCE: * Patients > 75 years receive moderate or high dose statin therapy. * Patients 75 years or YOUNGER should receive HIGH intensity statin dose unless contraindicated. You will be required to document reason for non-treatment if statin daily dose does not meet guidelines. HIGH DOSE STATIN THERAPY DAILY Atorvastatin > than or = to 40 mg Rosuvastatin > than or = to 20 mg Amlodipine + Atorvastatin > than or = to 2.5/40 mg Ezetimibe + Simvastatin 10/80 mg Simvastatin 80mg Discharge Plan Admission Admit Date/Time: 10/30/24 17:20 Attending Provider: Rory Trevizo Primary Care Provider: Anay Schuler Consulting Providers: Pb Granado; Nirav aCin Discharge Orders/Prescriptions Prescriptions: Continued levothyroxine 25 mcg tablet 25 mcg PO DAILY brimonidine 0.15 % drops 1 drp ophthalmic (eye) BID Rx Instructions: right eye omeprazole 40 mg capsule,delayed release(DR/EC) 20 mg PO DAILY Prolia 60 mg/mL syringe 60 mg subcut [id number] Patient Comments: STARTS END UP SEPTEMBER. mecobalamin (vitamin B12) 1,000 mcg tablet,chewable 1,000 mcg PO DAILY cholecalciferol (vitamin D3) 50 mcg (2,000 unit) capsule 50 mcg PO BID atorvastatin 20 MG tablet 20 mg PO QODAY Patient Comments: CHOLESTEROL timolol maleate 1 DROP drops 1 drp RIGHT EYE BID Patient Comments: EYE DROPS furosemide 20 mg tablet 20 mg PO DAILY 30 Days Qty: 0 0RF ferrous sulfate [Feosol] 325 mg (65 mg iron) tablet 325 mg PO DAILY ondansetron HCl 4 mg tablet 4 mg PO Q8H PRN (Reason: nausea/vomiting) Rocklatan 0.02-0.005 % drops 1 drp ophthalmic (eye) DAILY Gemtesa 75 mg tablet 75 mg PO DAILY Xarelto 15 mg tablet 15 mg PO DINNER Qty: 30 11RF Rx Instructions: must administer with evening meal Held potassium chloride 10 mEq capsule, extended release 20 meq PO DAILY Hold Instructions: hold until she sees Dr. Kingston Rx Instructions: take 2 capsules by mouth once daily losartan 50 mg tablet 50 mg PO BID Qty: 180 4RF Hold Instructions: Hold until sees Dr. Kingston Discontinued carvedilol 12.5 mg tablet 12.5 mg PO BID metoprolol tartrate 50 mg tablet 100 mg PO BID Qty: 60 6RF Referrals / Follow Up: Anay Schuler MD [Primary Care Provider] - Within 2 Weeks Jake Kingston MD [Med Staff - Active Staff] - In 1 Week (Follow-up with [facility]) Disposition Disposition (needs filled in before D/C Order can be placed): Home, Self Care Charges/Coding Visit Charges Inpatient E&M: 84067 Disch Hosp >30min 11/03/24 1111 <Electronically signed by Rory Trevizo MD> Cosigner Signature (if applicable): CC: Dr. Anay Schuler MD; Dr. Rory Trevizo MD~ Signed [facility] Work Phone: 1(512) 366-101905-08-2025 Discharge summary Author Rory Trevizo [facility] Note Date/Time November 03, 2024 11:07a m [facility] Medical Records Department [address] [place] [address] Instructions for Home/Discharge Instructions 11/03/24 1002 MR#: [id number] Acct: [id number] Name: REINIER ELIZABETH Rep #:[id number] : 1935 88 From: Rory Cardozo PCP: Dr. Anay Schuler MD Status:ADM I N Discharge Instructions Diet Discharge Diet: Low fat / Low cholesterol and 2000 mg Sodium Diet DC O2, CPAP, BIPAP needs Home O2 Discharge instructions: No Dressing / Incision Discharge Activity: Return to Normal Activity Weight Bearing Status: Weight bearing as tolerated Dressing / Incision Call your doctor if you observe: Fever of 101 or Higher, Coldness, Increased Pain, Numbness or Tingling, Change in Color, Inability to urinate, Inability to have a bowel movement, Shortness of breath, Dizziness, Fainting spells, Swellingin the ankles, Chest pain, Prolonged hiccupping, Increased palpitations (irregular heartbeat) and Calf discomfort Follow Up Care When: IN 2 WEEKS Test Results: Test results from this visit will be discussed in further detail at your follow- up appointment, if applicable. Discharge Plan Admission Admit Date/Time: 10/30/24 17:20 Attending Provider: Rory Trevizo Primary Care Provider: Anay Schuler Consulting Providers: Pb Granado; Nirav Cain Discharge Orders/Prescriptions Prescriptions: Continued levothyroxine 25 mcg tablet 25 mcg PO DAILY brimonidine 0.15 % drops 1 drp ophthalmic (eye) BID Rx Instructions: right eye omeprazole 40 mg capsule,delayed release(DR/EC) 20 mg PO DAILY Prolia 60 mg/mL syringe 60 mg subcut [id number] Patient Comments: STARTS END UP SEPTEMBER. mecobalamin (vitamin B12) 1,000 mcg tablet,chewable 1,000 mcg PO DAILY cholecalciferol (vitamin D3) 50 mcg (2,000 unit) capsule 50 mcg PO BID atorvastatin 20 MG tablet 20 mg PO QODAY Patient Comments: CHOLESTEROL timolol maleate 1 DROP drops 1 drp RIGHT EYE BID Patient Comments: EYE DROPS furosemide 20 mg tablet 20 mg PO DAILY 30 Days Qty: 0 0RF ferrous sulfate [Feosol] 325 mg (65 mg iron) tablet 325 mg PO DAILY ondansetron HCl 4 mg tablet 4 mg PO Q8H PRN (Reason: nausea/vomiting) Rocklatan 0.02-0.005 % drops 1 drp ophthalmic (eye) DAILY Gemtesa 75 mg tablet 75 mg PO DAILY Xarelto 15 mg tablet 15 mg PO DINNER Qty: 30 11RF Rx Instructions: must administer with evening meal Held potassium chloride 10 mEq capsule, extended release 20 meq PO DAILY Hold Instructions: hold until she sees Dr. Kingston Rx Instructions: take 2 capsules by mouth once daily losartan 50 mg tablet 50 mg PO BID Qty: 180 4RF Hold Instructions: Hold until sees Dr. Kingston Discontinued carvedilol 12.5 mg tablet 12.5 mg PO BID metoprolol tartrate 50 mg tablet 100 mg PO BID Qty: 60 6RF Referrals / Follow Up: Anay Schuler MD [Primary Care Provider] - Within 2 Weeks Jake Kingston MD [Med Staff - Active Staff] - In 1 Week (Follow-up with [facility]) Disposition Disposition (needs filled in before D/C Order can be placed): Home, Self Care 11/03/24 1107<Electronically signed by Rroy Trevizo MD>Rory Trevizo MD CC: Dr. Anay Schuler MD; Dr. Pb Granado MD; Dr. Nirav Cain MD ~ Signed [facility] Work Phone: 1(778) 880-973205-08-2025 Progress note Author Jake Kingston [facility] Note Date/Time November 03, 2024 9:44am [facility] Medical Records Department [address] [place] [address] Progress Note - Cardiology 11/03/2434 MR#: [id number] Acct: [id number] Name: REINIER ELIZABETH Rep #:[id number] : 1935 88 From: Jake Kingston MD PCP: Dr. Anay Schuler MD Status:ADM I N Location: [place] [address] Subjective Subjective Patient reports she has been up to the bathroom without lightheadedness or dizziness. She also reports that her energy level has increased and she feels much less fatigued than when she was in her home environment prior to admission. Her heart rate did go up to the 55-56 bpm when she was up in the room. Restingheart rate remains in the 40-45 bpm range. Objective Data Vital Signs: Vital Signs Temp Pulse Resp BP Pulse Ox O2 Del Method 97.3 F L 46 L 18 163/60 H 100 Room Air 11/03/24 09:20 11/03/24 09:20 11/03/24 09:20 11/03/24 09:20 11/03/24 09:20 11/03/24 09:20 Oxygen Delivery Method Room Air Weight: 152 lb 1.903 oz Body Mass Index (BMI) 27.8 Intake & Output: Intake and Output for Last 24 Hours 11/01/24 11/02/24 11/03/24 23:59 23:59 23:59 Intake Total 763.38 / 763.38 480 / 680 300 / 300 Balance 763.38 / 763.38 480 / 680 300 / 300 Lab / Micro Data Attestation: I reviewed the patient's lab results. 11/02/24 06:05 11/02/24 06:05 Rhythm Strip Rhythm Strip: Sinus Rhythm Rate: 45 Ectopy: PAC(s) Cardiology Labs/Tests Rhythm: EKG: ECHO: Stress Test: Cardiac Cath: PCI: CT Surgery: Holter monitor: EPS: PPM: CXR: Chest CT Scan: Physical Exam Narrative Resting comfortably with come position in bed at 30 degrees. Const alert and oriented x3 HEENT normocephalic Eyes EOMs intact bilaterally Neck no JVD Chest inspection of chest normal Resp normal respiratory effort Auscultation: diminished lung sounds left lower; Negative for rales Cardio Rate: bradycardia Rhythm: regular rhythm Heart Sounds: S1 normal and S2 normal; Negative for click, gallop or murmur Extremity no pedal edema Psych mental status grossly normal Assessment & Plan Assessment/Plan (1) Paroxysmal atrial fibrillation: PLAN: Patient converted to sinus bradycardia after IV amiodarone, diltiazem, andmetoprolol. When in atrial fibrillation her rate was difficult to control however in sinus rhythm her rate has been slow in the 35-45 bpm range. The patient denies any syncope or near syncope denies any dizziness denies any significant sensations with change of position. She has been up to the bathroomwithout any issues. She has noticed her increased exercise tolerance and less fatigue since conversion to sinus rhythm. The patient had been in atrial fibrillation since August 2024. The patient carries a history of bradycardia on diltiazem and Coreg in the past. At this point in time she has been off rate modulating drugs for 72 hours. Given the fact she has no syncope or near syncope and is tolerating her current heart rate and she is a DNR CCA I do not feel that permanent pacemaker is indicated at this point in time. I had a long discussion with the patient and her family in detail yesterday outlining the pros and cons given her DNR status as well as her age of 88 with placement of a pacemaker when she is actually feeling better in the sinus bradycardia. This will also give us time to see if the rate modulating drugs may wear off more over the next several days. The patient be reevaluated in our office in 1 week and as needed. (2) Chronic kidney disease: QUALIFIERS: Chronic kidney disease stage: stage 4 (GFR 15-29) Qualified Code(s): N18.4 - Chronic kidney disease, stage 4 (severe) PLAN: Patient's creatinine today was 2.35 which is slightly up this needs to be reevaluated in 1 week. I would recommend she continue her current medical therapy. She does have a history of LV dysfunction EF in the 40-45% range whichis probably rate related to her atrial fibrillation. Historically her EF had been in the 60% range. We may need to interrupt her Lasix depending on her weight and renal function when she is reevaluated in office in 1 week. (3) Essential hypertension: PLAN: Patient has systolic hypertension in the 160?170 range. Given her bradycardia I would not recommend we aggressively treat the systolic hypertension until her heart rate is more stabilized. Once that occurs a nonrate modulating medication may be indicated. Consideration may be given the either using hydrochlorothiazide or hydralazine or amlodipine. PLAN: Plan 1. Patient to continue her current medical therapy. 2. Patient can be discharged home to the care of her family and home health care from a cardiovascular standpoint. 3. Patient needs to be reevaluated in the [facility] office in 1 week. At that time she will have an ECG done as well as a basic metabolic panel. If she is stable from a vital sign standpoint a Holter monitor for 48 hours will beordered to check her heart rate response in her home environment. 4. Once we have her medications stabilized heart rate stabilized then an echocardiogram should be done at 6 weeks to reevaluate her LV function. This should be a limited echo. 5. At this point in time I do not feel that permanent pacing is indicated but this may have to be revisited depending on her response to current therapy and her activity levels in her home environment. Charges/Coding Visit Charges Inpatient E&M: 06509 Subs Hosp L3 11/03/24 0944 <Electronically signed by Jake Kingston MD> Cosigner Signature (if applicable): CC: ~ Signed [facility] Work Phone: 1(507) 468-271005-08-2025 [facility]05-08-2025 Telephone encounter Note* Telephone Encounter - Brianne Toribio RN - 11/03/2024 10:54 AM EDT Karen with [facility] calls to ask if provider would be willing to follow their HH orders for SN, PT, OT. Patient is discharging home today from [facility] PCU after being treated for A-fib and Renal Failure. Call back number is [phone]. Brianne Toribio RN [facility]05-07-2025 Progress note Author Rory Trevizo [facility] Note Date/Time November 02, 2024 5:08pm [facility] Medical Records Department [address] [place] [address] Progress Note - Hospitalist 11/02/24 1704 MR#: [id number] Acct: [id number] Name: REINIER ELIZABETH Rep #:[id number] : 1935 88 From: Rory Cardozo PCP: Dr. Anay Schuler MD Status:ADM I N Location: [place] [address] Reason for Visit Reason for Visit: Diagnoses Essential (primary) hypertension (10/30/24) Paroxysmal atrial fibrillation (10/30/24) Unspecified diastolic (congestive) heart failure (10/30/24) Acute kidney failure, unspecified (10/30/24) Objective Data Objective Data Vital Signs: Vital Signs Temp Pulse Resp BP Pulse Ox O2 Del Method 98.2 F 43 L 18 167/57 H 99 Room Air 11/02/24 15:20 11/02/24 15:20 11/02/24 15:20 11/02/24 15:20 11/02/24 15:20 11/02/24 15:20 Oxygen Delivery Method Room Air Weight: 152 lb 5.431 oz Body Mass Index (BMI) 27.8 Intake & Output: Intake and Output for Last 24 Hours 10/31/24 11/01/24 11/02/24 23:59 23:59 23:59 Intake Total 2561.21 / 2677.91 763.38 / 763.38 240 / 240 Balance 2561.21 / 2677.91 763.38 / 763.38 240 / 240 Lab / Micro Data 11/02/24 06:05 11/02/24 06:05 Labs: Laboratory Results - last 24 hr 11/02/24 06:05: WBC 6.4, RBC 2.97 L, Hgb 9.5 L, Hct 29.0 L, MCV 97.6, MCH 32.0, MCHC 32.8, RDW Std Deviation 48.3 H, RDW Coeff of Broderick 13.9, Plt Count 164, MPV 10.6, Immature Gran % (Auto) 0.200, Neut % (Auto) 62.3, Lymph % (Auto) 23.9, Jones % (Auto) 8.6, Eos % (Auto) 4.4, Baso % (Auto) 0.6, Absolute Neuts (auto) 4.0, Absolute Lymphs (auto) 1.53, Nucleated RBC % 0, Sodium 139, Potassium 4.5, Chloride 111 H, Carbon Dioxide 17.1 L, Anion Gap 10, BUN 39 H, Creatinine 2.35 H, Estim Creat Clear Calc 15.36 L, Est GFR (MDRD) Non-Af 20 L, BUN/Creatinine Ratio 16.4, Glucose 97, Calcium 9.0 Micro: Microbiology 10/30/24 13:23 Mucosa - Nose SARS-CoV-2, Influenza & RSV (PCR) - Final Rhythm Strip Rhythm Strip: Sinus Rhythm Rate: 45 Ectopy: PAC(s) Physical Exam Narrative Seen and examined in the presence of patient's daughter. Patient leg weakness is better. PT is working with the patient. No acute chestpain or shortness of breath. Heart rate is better, high 40s. She converted to sinus rhythm 2 days ago. Patient is states she has bilateral leg weakness for about 5 to 6 weeks and cannot walk from her bedroom to living room. Has been mostly restricted to home. Admitted with generalized weakness General: Alert, Oriented x3, Cooperative HEENT: Atraumatic, PERRLA, EOMI, Normocephalic Oral: No Gingival or Mucosal Lesions/ Ulcerations Neck: Supple, No JVD, Negative Carotid Bruits Chest wall/Lungs: Air entry diminished in bilateral lung bases. No crepitation/rhonchi Cardiovascular: Sinus bradycardia with. Systolic murmur Abdomen: Bowel Sounds Present, Soft, Non Tender, Non-Distended : No dysuria. No renal angle tenderness. No suprapubic tenderness. Extremities: No edema, Capillary Refill Less than 3 Seconds Skin: No rashes, No breakdown Musculoskeletal: 4+/5 at bilateral knees and hip joints. ROM mildly restricted,degenerative arthritis of knees. Neurological: DTR 2/4. No acute lateralization sign. Psych/Mental Status: Flat affect. Assessment & Plan Assessment/Plan (1) GERI (acute kidney injury): (2) Paroxysmal atrial fibrillation: PLAN: Plan 88-year-old female being admitted for generalized weakness, looking pale and nauseated. Patient denied chest pain, shortness of breath. Complain of severe leg weakness when ambulating any distance. 1. symptomatic A-fib with mild RVR: Patient is being admitted in PCU. Her heart rate was 130/min. Currently in low 90s. Discussed with the commonwealth attorney and amiodarone drip discontinued. Metoprolol 50 mg twice daily. On rivaroxaban. Plan for cardioversion tomorrow. Hold tomorrow morning dose of Lopressor. N.p.o. after midnight. 11/01: She converted overnight and severe sinus bradycardia. Patient was on combination of metoprolol, intermittent diltiazem and amiodarone drip which was discontinued yesterday. Metoprolol amiodarone on hold. Cardioversion is canceled. She might have sick sinus syndrome/sinus node dysfunction and option of pacemaker also discussed if bradycardia does not resolve 11/02: Heart rate is improving. Discussed with the patient's daughter and commonwealth attorney. Plan is anticipating discharge tomorrow with follow-up in the cardiology office after 1 week to discuss the options about pacemaker. 2. CAD, chronic systolic and diastolic heart failure, pulmonary hypertension: Losartan on hold due to GERI. Troponin slightly elevated flat and insignificant recent echo in October 21 shows normal EF 60% with PASP 64 mmHg consistent with moderate pulmonary hypertension. Normal atrial sizes. Patient had left heart cath in 2018. 11/01: Echo shows EF 40 to 45%. Biatrial dilatation. Mild global LV systolic dysfunction. Chest x-ray small right pleural effusion. Patient has mild chronic HFrEF and HFpEF. 11/02: Echo finding discussed with the patient's daughter. 3. GERI on CKD stage III: Baseline creatinine runs around 1.3-1.4. Admitted with creatinine 2.27. Patient was given IV fluid hydration. Lasix was held. Patient's creatinine was 2.03 on 10/24. It was 1.43 on 10/13 11/01: BUN/creatinine 35/2.09. Creatinine shows slight improvement. Patient not on nephrotoxic medication 11/02: Creatinine is 2.35. Nephrotoxic medications including diuretic, HCTZ and VIET/ARB are contraindicated. 4. Hypertension and dyslipidemia: On Lipitor. Losartan on hold. Blood pressure is in normal range. 11/02: Blood pressure is mildly elevated. Hydralazine 25 mg 3 times daily ordered. 5. Anemia of chronic disease in the setting of CKD 3 On iron therapy 6.. GERD ? Continue with PPI 4. Hypothyroidism ? TSH recently at 2.15 ? Continue with Synthroid DVT: Xarelto Microbiology Past 72 Hours 10/30/24 13:23 Mucosa - Nose SARS-CoV-2, Influenza & RSV (PCR) - Final Laboratory Results 11/02/24 06:05: WBC 6.4, RBC 2.97 L, Hgb 9.5 L, Hct 29.0 L, MCV 97.6, MCH 32.0, MCHC 32.8, RDW Std Deviation 48.3 H, RDW Coeff of Broderick 13.9, Plt Count 164, MPV 10.6, Immature Gran % (Auto) 0.200, Neut % (Auto) 62.3, Lymph % (Auto) 23.9, Jones % (Auto) 8.6, Eos % (Auto) 4.4, Baso % (Auto) 0.6, Absolute Neuts (auto) 4.0, Absolute Lymphs (auto) 1.53, Nucleated RBC % 0, Sodium 139, Potassium 4.5, Chloride 111 H, Carbon Dioxide 17.1 L, Anion Gap 10, BUN 39 H, Creatinine 2.35 H, Estim Creat Clear Calc 15.36 L, Est GFR (MDRD) Non-Af 20 L, BUN/Creatinine Ratio 16.4, Glucose 97, Calcium 9.0 Clinical Impression(s) from Imaging Studies Chest X-Ray 10/30/24 12:53 IMPRESSION: Small right pleural effusion. Cardiomegaly. Reading Location: [facility] Extremity Arterial Study 10/31/24 09:32 Interpretation Summary Triphasic Doppler waveforms are noted at ankle level bilaterally. Pulse-volume recordings appear diminished at digital level on the left, but satisfactory at all other levels bilaterally. Resting ankle-brachial indices are normal bilaterally. The right digital-brachial index is normal. The left digital- brachial index is mildly diminished. Arterial flow appears normal at ankle level bilaterally, and at digital level onthe right. There is evidence of mild arterial occlusive disease at digital level on the left. Ordering Physician: Rory Trevizo Referring Physician: Anay Schuler Performed By: Roberto Munoz, T Echocardiogram 10/31/24 10:56 Interpretation Summary The study was technically difficult. Mild global left ventricular systolic dysfunction. Estimated LVEF 40 to 45%. There is mild biatrial dilatation. Small organized anterior pericardial effusion versus fat pad. Consider CT scan for further evaluation. Ordering Physician: Jake Kingston Referring Physician: ANAY SCHULER Performed By: Karey Harden [facility] Charges/Coding Visit Charges Inpatient E&M: 33869 Subs Hosp L2 11/02/24 1708 <Electronically signed by Rory Trevizo MD> Cosigner Signature (if applicable): CC: ~ Signed [facility] Work Phone: 1(729) 601-874005-07-2025 Progress note Author Jake Kingston [facility] Note Date/Time November 02, 2024 9:05am [facility] Medical Records Department [address] [place] [id number] Progress Note - Cardiology 11/02/24 0856 MR#: [id number] Acct: [id number] Name: REINIER ELIZABETH Rep #:[id number] : 1935 88 From: Jake Kingston MD PCP: Dr. Anay Schuler MD Status:ADM I N Location: [place] [address] Subjective Subjective Patient is resting comfortably in the recumbent position at 30 degrees in the bed. Heart rate on telemetry documented at 42 and sinus bradycardia. The patient was ambulated in the [place] this morning she complained of leg weakness and her heart rate did go up to 56. The patient has now been off amiodarone diltiazem and metoprolol for 48 hours. Her heart rate continues to be about thesame but it is responding to activity. Objective Data Vital Signs: Vital Signs Temp Pulse Resp BP Pulse Ox O2 Del Method 96.4 F L 51 L 16 148/53 H 96 Room Air 11/02/24 03:20 11/02/24 03:20 11/02/24 03:20 11/02/24 03:20 11/02/24 03:20 11/02/24 08:33 Oxygen Delivery Method Room Air Weight: 152 lb 5.431 oz Body Mass Index (BMI) 27.8 Intake & Output: Intake and Output for Last 24 Hours 10/31/24 11/01/24 11/02/24 23:59 23:59 23:59 Intake Total 2561.21 / 2677.91 763.38 / 763.38 Balance 2561.21 / 2677.91 763.38 / 763.38 Lab / Micro Data Attestation: I reviewed the patient's lab results. 11/02/24 06:05 11/02/24 06:05 Labs: Laboratory Results - last 24 hr 11/02/24 06:05: WBC 6.4, RBC 2.97 L, Hgb 9.5 L, Hct 29.0 L, MCV 97.6, MCH 32.0, MCHC 32.8, RDW Std Deviation 48.3 H, RDW Coeff of Broderick 13.9, Plt Count 164, MPV 10.6, Immature Gran % (Auto) 0.200, Neut % (Auto) 62.3, Lymph % (Auto) 23.9, Jones % (Auto) 8.6, Eos % (Auto) 4.4, Baso % (Auto) 0.6, Absolute Neuts (auto) 4.0, Absolute Lymphs (auto) 1.53, Nucleated RBC % 0, Sodium 139, Potassium 4.5, Chloride 111 H, Carbon Dioxide 17.1 L, Anion Gap 10, BUN 39 H, Creatinine 2.35 H, Estim Creat Clear Calc 15.36 L, Est GFR (MDRD) Non-Af 20 L, BUN/Creatinine Ratio 16.4, Glucose 97, Calcium 9.0 Rhythm Strip Rhythm Strip: Sinus Rhythm Rate: 45 Ectopy: PAC(s) Cardiology Labs/Tests 11/02/24 06:05: WBC 6.4, RBC 2.97 L, Hgb 9.5 L, Hct 29.0 L, MCV 97.6, MCH 32.0, MCHC 32.8, Plt Count 164, MPV 10.6, Immature Gran % (Auto) 0.200, Neut % (Auto) 62.3, Lymph % (Auto) 23.9, Jones % (Auto) 8.6, Eos % (Auto) 4.4, Baso % (Auto) 0.6, Absolute Neuts (auto) 4.0, Nucleated RBC % 0, Sodium 139, Potassium 4.5, Chloride 111 H, Carbon Dioxide 17.1 L, Anion Gap 10, BUN 39 H, Creatinine 2.35 H,Est GFR (MDRD) Non-Af 20 L, BUN/Creatinine Ratio 16.4, Glucose 97, Calcium 9.0 Rhythm: EKG: ECHO: Stress Test: Cardiac Cath: PCI: CT Surgery: Holter monitor: EPS: PPM: CXR: Chest CT Scan: Physical Exam Narrative Patient resting comfortably in recumbent position at 30 degrees in the bed. Const alert and oriented x3 HEENT normocephalic Eyes EOMs intact bilaterally Neck no JVD Chest inspection of chest normal Resp normal respiratory effort Auscultation: diminished lung sounds bilateral lower Cardio Rate: bradycardia Rhythm: regular rhythm Heart Sounds: S1 normal and S2 normal; Negative for click, gallop or murmur Extremity no pedal edema Neuro Neuro Narrative: Alert and oriented x 3 Psych mental status grossly normal Assessment & Plan Assessment/Plan (1) Paroxysmal atrial fibrillation: PLAN: Patient currently remains in sinus bradycardia at 45 bpm on telemetry. Itdoes go as low as the mid 30s at times. But it also increases up in the mid to upper 50s with activity. She is still washing out the combination of the diltiazem, metoprolol, and amiodarone given her renal insufficiency. Patient istolerating the Xarelto without incident. At this point time would recommend continue to monitor for another 24 hours and try and increase her activities. It is highly likely this is account service representative of sick sinus syndrome and the patient very well may wind up with a pacemaker eventually. However, she is a DNR and we need to discuss this in detail with the family. (2) CHF (congestive heart failure): QUALIFIERS: Heart failure type: diastolic Heart failure chronicity: unspecified Qualified Code(s): I50.30 - Unspecified diastolic (congestive) heart failure PLAN: Patient's VIET inhibitor therapy has to be held due to her worsening renal insufficiency. She is on no diuretic therapy but does not appear to be congested either by physical exam or symptoms. Will add hydralazine and nitrates to her medical therapy. Will need further discussion with the family concerning pacemaker implantation to help us better control her heart failure and bradycardia. (3) GERI (acute kidney injury): PLAN: Patient's creatinine has increased over the last 24 hours. She is not on any diuretic therapy her LV ejection fraction is known to be 40-45% which is a drop off since she has been in atrial fibrillation and probably rate related. Now that she is in sinus rhythm although it is significantly bradycardic we willtry and add afterload reduction therapy. We cannot add beta-alejandra therapy given her rate. PLAN: Plan 1. Will add hydralazine and nitrates for afterload reduction therapy. 2. Continue to hold diuretic therapy at this time. 3. Will continue to monitor renal function and heart rate. 4. Within the next 24 hours need to make a decision about permanent pacemaker implantation versus continued medical management. 5. As long as the patient remains in sinus rhythm although bradycardic would consider discharge to home in the next 24 hours provided her heart rate appropriately increases with activity and she is not have any symptoms of near syncope or syncope. 6. The patient will need to be reevaluated in 1 week in the office and would need a limited echocardiogram to reevaluate her LV function at 6 weeks. 7. Will have a discussion with the family in the next 24 hours concerning the aggressiveness of therapy that they feel is appropriate as far as pacing is concerned. Charges/Coding Visit Charges Inpatient E&M: 85649 Subs Hosp L3 11/02/24904 <Electronically signed by Jake Kingston MD> Cosigner Signature (if applicable): CC: ~ Signed [facility] Work Phone: 1(277) 174-675005-06-2025 Progress note Author Rory Trevizo [facility] Note Date/Time November 01, 2024 4:10pm [facility] Medical Records Department [address] [place] [address] [place] [address] Progress Note - Hospitalist 11/01/24 0916 MR#: [id number] Acct: [id number] Name: REINIER ELIZABETH Rep #:[id number] : 1935 88 From: Rory Cardozo PCP: Dr. Anay Schuler MD Status:ADM I N Location: [place] [address] Reason for Visit Reason for Visit: Diagnoses Essential (primary) hypertension (10/30/24) Paroxysmal atrial fibrillation (10/30/24) Unspecified diastolic (congestive) heart failure (10/30/24) Acute kidney failure, unspecified (10/30/24) Objective Data Objective Data Vital Signs: Vital Signs Temp Pulse Resp BP Pulse Ox O2 Del Method 97.5 F L 44 L 16 119/68 98 Room Air 11/01/24 03:37 11/01/24 03:37 11/01/24 03:37 11/01/24 03:37 11/01/24 03:37 11/01/24 08:25 Oxygen Delivery Method Room Air Weight: 151 lb 14.376 oz Body Mass Index (BMI) 27.8 Intake & Output: Intake and Output for Last 24 Hours 10/30/24 10/31/24 11/01/24 23:59 23:59 23:59 Intake Total 49.53 / 186.23 2561.21 / 2677.91 123.38 / 123.38 Balance 49.53 / 186.23 2561.21 / 2677.91 123.38 / 123.38 Lab / Micro Data 11/01/24 05:14 11/01/24 05:14 Labs: Laboratory Results - last 24 hr 11/01/24 05:14: WBC 6.2, RBC 3.02 L, Hgb 9.5 L, Hct 29.8 L, MCV 98.7, MCH 31.5, MCHC 31.9 L, RDW Std Deviation 48.7 H, RDW Coeff of Broderick 14.0, Plt Count 171, MPV10.8, Immature Gran % (Auto) 0.300, Neut % (Auto) 61.2, Lymph % (Auto) 25.2, Jones % (Auto) 9.5, Eos % (Auto) 3.5, Baso % (Auto) 0.3, Absolute Neuts (auto) 3.8, Absolute Lymphs (auto) 1.57, Nucleated RBC % 0.3, Sodium 139, Potassium 4.4, Chloride 112 H, Carbon Dioxide 15.1 L, Anion Gap 12, BUN 35 H, Creatinine 2.09 H, Estim Creat Clear Calc 17.25 L, Est GFR (MDRD) Non-Af 23 L, BUN/Creatinine Ratio 16.7, Glucose 101 H, Calcium 9.2 Micro: Microbiology 10/30/24 13:23 Mucosa - Nose SARS-CoV-2, Influenza & RSV (PCR) - Final Radiography Diagnostic Testing: Radiology Impression Extremity Arterial Study 10/31/24 09:32 Interpretation Summary Triphasic Doppler waveforms are noted at ankle level bilaterally. Pulse-volume recordings appear diminished at digital level on the left, but satisfactory at all other levels bilaterally. Resting ankle-brachial indices are normal bilaterally. The right digital-brachial index is normal. The left digital- brachial index is mildly diminished. Arterial flow appears normal at ankle level bilaterally, and at digital level onthe right. There is evidence of mild arterial occlusive disease at digital level on the left. Ordering Physician: Rory Trevizo Referring Physician: Anay Schuler Performed By: Roberto Munoz RVT Echocardiogram 10/31/24 10:56 Interpretation Summary The study was technically difficult. Mild global left ventricular systolic dysfunction. Estimated LVEF 40 to 45%. There is mild biatrial dilatation. Small organized anterior pericardial effusion versus fat pad. Consider CT scan for further evaluation. Ordering Physician: Jake Kingston Referring Physician: ANAY GANTA Performed By: Karey Harden RCS Rhythm Strip Rhythm Strip: Sinus Rhythm Rate: 45 Ectopy: PAC(s) Physical Exam Narrative Seen and examined in the presence of patient's daughter. Patient leg weakness is better. No acute chest pain or shortness of breath heart rate is in 40s. She converted overnight. Patient is states she has bilateral leg weakness for about 5 to 6 weeks and cannot walk from her bedroom to living room. Has been mostly restricted to home. Admitted with generalized weakness General: Alert, Oriented x3, Cooperative HEENT: Atraumatic, PERRLA, EOMI, Normocephalic Oral: No Gingival or Mucosal Lesions/ Ulcerations Neck: Supple, No JVD, Negative Carotid Bruits Chest wall/Lungs: Air entry diminished in bilateral lung bases. No crepitation/rhonchi Cardiovascular: Sinus bradycardia with. Systolic murmur Abdomen: Bowel Sounds Present, Soft, Non Tender, Non-Distended : No dysuria. No renal angle tenderness. No suprapubic tenderness. Extremities: No edema, Capillary Refill Less than 3 Seconds Skin: No rashes, No breakdown Musculoskeletal: 4+/5 at bilateral knees and hip joints. ROM mildly restricted,degenerative arthritis of knees. Neurological: DTR 2/4. No acute lateralization sign. Psych/Mental Status: Flat affect. Assessment & Plan Assessment/Plan (1) GERI (acute kidney injury): (2) Paroxysmal atrial fibrillation: PLAN: Plan 88-year-old female being admitted for generalized weakness, looking pale and nauseated. Patient denied chest pain, shortness of breath. Complain of severe leg weakness when ambulating any distance. 1. symptomatic A-fib with mild RVR: Patient is being admitted in PCU. Her heart rate was 130/min. Currently in low 90s. Discussed with the commonwealth attorney and amiodarone drip discontinued. Metoprolol 50 mg twice daily. On rivaroxaban. Plan for cardioversion tomorrow. Hold tomorrow morning dose of Lopressor. N.p.o. after midnight. 56: She converted overnight and severe sinus bradycardia. Patient was on combination of metoprolol, intermittent diltiazem and amiodarone drip which was discontinued yesterday. Metoprolol amiodarone on hold. Cardioversion is canceled. She might have sick sinus syndrome/sinus node dysfunction and option of pacemaker also discussed if bradycardia does not resolve 2. CAD, chronic systolic and diastolic heart failure, pulmonary hypertension: Losartan on hold due to GERI. Troponin slightly elevated flat and insignificant recent echo in October 21 shows normal EF 60% with PASP 64 mmHg consistent with moderate pulmonary hypertension. Normal atrial sizes. Patient had left heart cath in 2018. 11/01: Echo shows EF 40 to 45%. Biatrial dilatation. Mild global LV systolic dysfunction. Chest x-ray small right pleural effusion. Patient has mild chronic HFrEF. 3. GERI on CKD stage III: Baseline creatinine runs around 1.3-1.4. Admitted with creatinine 2.27. Patient was given IV fluid hydration. Lasix was held. Patient's creatinine was 2.03 on 10/24. It was 1.43 on 10/13 11/01: BUN/creatinine 35/2.09. Creatinine shows slight improvement. Patient not on nephrotoxic medication 4. Hypertension and dyslipidemia: On Lipitor. Losartan on hold. Blood pressure is in normal range. 5. Anemia of chronic disease in the setting of CKD 3 On iron therapy 6.. GERD ? Continue with PPI 4. Hypothyroidism ? TSH recently at 2.15 ? Continue with Synthroid DVT: Xarelto Microbiology Past 72 Hours 10/30/24 13:23 Mucosa - Nose SARS-CoV-2, Influenza & RSV (PCR) - Final Laboratory Results 11/01/24 05:14: WBC 6.2, RBC 3.02 L, Hgb 9.5 L, Hct 29.8 L, MCV 98.7, MCH 31.5, MCHC 31.9 L, RDW Std Deviation 48.7 H, RDW Coeff of Broderick 14.0, Plt Count 171, MPV10.8, Immature Gran % (Auto) 0.300, Neut % (Auto) 61.2, Lymph % (Auto) 25.2, Jones % (Auto) 9.5, Eos % (Auto) 3.5, Baso % (Auto) 0.3, Absolute Neuts (auto) 3.8, Absolute Lymphs (auto) 1.57, Nucleated RBC % 0.3, Sodium 139, Potassium 4.4, Chloride 112 H, Carbon Dioxide 15.1 L, Anion Gap 12, BUN 35 H, Creatinine 2.09 H, Estim Creat Clear Calc 17.25 L, Est GFR (MDRD) Non-Af 23 L, BUN/Creatinine Ratio 16.7, Glucose 101 H, Calcium 9.2 Clinical Impression(s) from Imaging Studies Chest X-Ray 10/30/24 12:53 IMPRESSION: Small right pleural effusion. Cardiomegaly. Reading Location: [facility] Extremity Arterial Study 10/31/24 09:32 Interpretation Summary Triphasic Doppler waveforms are noted at ankle level bilaterally. Pulse-volume recordings appear diminished at digital level on the left, but satisfactory at all other levels bilaterally. Resting ankle-brachial indices are normal bilaterally. The right digital-brachial index is normal. The left digital- brachial index is mildly diminished. Arterial flow appears normal at ankle level bilaterally, and at digital level onthe right. There is evidence of mild arterial occlusive disease at digital level on the left. Ordering Physician: Rory Trevizo Referring Physician: Anay Schuler Performed By: Roberto Munoz RVT Echocardiogram 10/31/24 10:56 Interpretation Summary The study was technically difficult. Mild global left ventricular systolic dysfunction. Estimated LVEF 40 to 45%. There is mild biatrial dilatation. Small organized anterior pericardial effusion versus fat pad. Consider CT scan for further evaluation. Ordering Physician: Jake Kingston Referring Physician: ANAY SCHULER Performed By: Karey Harden RCS Charges/Coding Visit Charges Inpatient E&M: 48882 Subs Hosp L2 11/01/24 1610 <Electronically signed by Rory Trevizo MD> Cosigner Signature (if applicable): CC: ~ Signed [facility] Work Phone: 1(516) 553-436105-06-2025 Progress note Author Jake Kingston [facility] Note Date/Time November 01, 2024 8:52am [facility] Medical Records Department [address] [place] [address] Progress Note - Cardiology 11/01/24 0843 MR#: [id number] Acct: [id number] Name: REINIER ELIZABETH Rep #:[id number] : 1935 88 From: Jake Kingston MD PCP: Dr. Anay Schuler MD Status:ADM I N Location: [place] [address] Subjective Subjective The patient spontaneously reverted to normal sinus rhythm at approximately midnight last night. At that point in time she had a significant prolonged sinus node recovery time and subsequently has been bradycardic in the 35-40 bpm range with sinus rhythm. The patient had been on diltiazem, metoprolol, and amiodarone at the time of her conversion. Historically the patient been on a combination of metoprolol plus minus diltiazem in her home environment for rate control in the past. This morning her heart rate is 45 sitting on the bedside commode. She has not been up but she does report she feels better now that she is out of atrial fibrillation. Objective Data Vital Signs: Vital Signs Temp Pulse Resp BP Pulse Ox O2 Del Method 97.5 F L 44 L 16 119/68 98 Room Air 11/01/24 03:37 11/01/24 03:37 11/01/24 03:37 11/01/24 03:37 11/01/24 03:37 11/01/24 03:37 Oxygen Delivery Method Room Air Weight: 151 lb 14.376 oz Body Mass Index (BMI) 27.8 Intake & Output: Intake and Output for Last 24 Hours 10/30/24 10/31/24 11/01/24 23:59 23:59 23:59 Intake Total 49.53 / 186.23 2561.21 / 2677.91 123.38 / 123.38 Balance 49.53 / 186.23 2561.21 / 2677.91 123.38 / 123.38 Lab / Micro Data Attestation: I reviewed the patient's lab results. 11/01/24 05:14 11/01/24 05:14 Labs: Laboratory Results - last 24 hr 11/01/24 05:14: WBC 6.2, RBC 3.02 L, Hgb 9.5 L, Hct 29.8 L, MCV 98.7, MCH 31.5, MCHC 31.9 L, RDW Std Deviation 48.7 H, RDW Coeff of Broderick 14.0, Plt Count 171, MPV10.8, Immature Gran % (Auto) 0.300, Neut % (Auto) 61.2, Lymph % (Auto) 25.2, Jones % (Auto) 9.5, Eos % (Auto) 3.5, Baso % (Auto) 0.3, Absolute Neuts (auto) 3.8, Absolute Lymphs (auto) 1.57, Nucleated RBC % 0.3, Sodium 139, Potassium 4.4, Chloride 112 H, Carbon Dioxide 15.1 L, Anion Gap 12, BUN 35 H, Creatinine 2.09 H, Estim Creat Clear Calc 17.25 L, Est GFR (MDRD) Non-Af 23 L, BUN/Creatinine Ratio 16.7, Glucose 101 H, Calcium 9.2 Rhythm Strip Rhythm Strip: Sinus Rhythm Rate: 45 Ectopy: PAC(s) Cardiology Labs/Tests 11/01/24 05:14: WBC 6.2, RBC 3.02 L, Hgb 9.5 L, Hct 29.8 L, MCV 98.7, MCH 31.5, MCHC 31.9 L, Plt Count 171, MPV 10.8, Immature Gran % (Auto) 0.300, Neut % (Auto) 61.2, Lymph % (Auto) 25.2, Jones % (Auto) 9.5, Eos % (Auto) 3.5, Baso % (Auto) 0.3, Absolute Neuts (auto) 3.8, Nucleated RBC % 0.3, Sodium 139, Potassium 4.4, Chloride 112 H, Carbon Dioxide 15.1 L, Anion Gap 12, BUN 35 H, Creatinine 2.09 H, Est GFR (MDRD) Non-Af 23 L, BUN/Creatinine Ratio 16.7, [id number] H, Calcium 9.2 Rhythm: EKG: ECHO: Stress Test: Cardiac Cath: PCI: CT Surgery: Holter monitor: EPS: PPM: CXR: Chest CT Scan: Radiography Diagnostic Testing: Radiology Impression Extremity Arterial Study 10/31/24 09:32 Interpretation Summary Triphasic Doppler waveforms are noted at ankle level bilaterally. Pulse-volume recordings appear diminished at digital level on the left, but satisfactory at all other levels bilaterally. Resting ankle-brachial indices are normal bilaterally. The right digital-brachial index is normal. The left digital- brachial index is mildly diminished. Arterial flow appears normal at ankle level bilaterally, and at digital level onthe right. There is evidence of mild arterial occlusive disease at digital level on the left. Ordering Physician: Rory Trevizo Referring Physician: Anay Schuler Performed By: Roberto Munoz RVT Echocardiogram 10/31/24 10:56 Interpretation Summary The study was technically difficult. Mild global left ventricular systolic dysfunction. Estimated LVEF 40 to 45%. There is mild biatrial dilatation. Small organized anterior pericardial effusion versus fat pad. Consider CT scan for further evaluation. Ordering Physician: Jake Kingston Referring Physician: ANAY SCHULER Performed By: Karey Harden RCS Physical Exam Const alert and oriented x3 HEENT normocephalic Eyes EOMs intact bilaterally Neck no JVD Neck Narrative: Seated at 90 degrees. Chest inspection of chest normal Resp normal respiratory effort Auscultation: diminished lung sounds left lower Cardio Rate: bradycardia Rhythm: regular rhythm Heart Sounds: S1 normal and S2 normal; Negative for click, gallop or murmur Extremity no pedal edema Neuro Neuro Narrative: Alert and oriented x 3 Psych mental status grossly normal Assessment & Plan Assessment/Plan (1) Paroxysmal atrial fibrillation: PLAN: Patient had been in atrial fibrillation since August 2024. She had had progressive weakness and fatigability. She was hospitalized and placed on IV amiodarone along with metoprolol and diltiazem and converted to sinus rhythm overnight. ECG following conversion shows sinus bradycardia at 45 bpm with occasional PACs. Historically the patient had been on metoprolol plus minus diltiazem in her home environment. It is likely this represents sick sinus syndrome but we will need to allow the rate modulating drugs to wear off to see what the full effect of her heart rate will be. If she remains profoundly bradycardic consideration would be given forpermanent pacemaker implantation to avoid bradycardia induced recurrence of atrial fibrillation. The patient does have LV dysfunction EF of 40-45% and we will try to reinstituteher Coreg at low-dose once her heart rate recovers. Patient remains on Xarelto 15 mg daily. (2) CHF (congestive heart failure): QUALIFIERS: Heart failure type: diastolic Heart failure chronicity: unspecified Qualified Code(s): I50.30 - Unspecified diastolic (congestive) heart failure PLAN: Patient's previous echocardiogram showed an EF of 60%. Repeat echo this admission shows an EF of 40-45%. The patient is currently tolerating losartan 50 mg twice daily furosemide 20 mg daily which actually is on hold at this time due to her renal issues carvedilol 12.5 mg twice daily is also on hold the plan is to reinstitute that when her heart rate recovers but tony lower dose. It is likely the drop-off in her EF may be related to her atrial fibrillation which is now resolved. Will plan on reevaluating her LV function after 6 weeks of sinus rhythm with a limited echo. (3) GERI (acute kidney injury): PLAN: Renal function is essentially stable over the last 24 hours creatinine 2.14 down to 2.09. Creatinine clearance is 17. This is being monitored by the primary service. Potassium is stable at 4.4. Patient is not on spironolactone at this time. PLAN: Plan 1. Continue to monitor the heart rate as diltiazem, metoprolol, and amiodarone rate modulating effect wears off. 2. Increase activities as tolerated. 3. Will reevaluate the patient in 24 hours to determine further medication adjustments. Charges/Coding Visit Charges Inpatient E&M: 79385 Subs Hosp L3 11/01/24 0852 <Electronically signed by Jake Kingston MD> Cosigner Signature (if applicable): CC: ~ Signed [facility] Work Phone: 1(483) 993-451105-05-2025 Progress note Author Rory Trevizo [facility] Note Date/Time October 31, 2024 4:53pm [facility] Medical Records Department [address] [place] [address] Progress Note - Hospitalist 10/31/2442 MR#: [id number] Acct: [id number] Name: REINIER ELIZABETH Mikayla Rep #:[id number] : 1935 88 From: Rory Cardozo PCP: Dr. Anay Schuler MD Status:ADM I N Location: [place] [address] Reason for Visit Reason for Visit: Diagnoses Paroxysmal atrial fibrillation (10/30/24) Acute kidney failure, unspecified (10/30/24) Objective Data Objective Data Vital Signs: Vital Signs Temp Pulse Resp BP Pulse Ox O2 Del Method 98.0 F 99 18 134/89 H 98 Room Air 10/31/24 03:00 10/31/24 08:00 10/31/24 08:00 10/31/24 08:00 10/31/24 08:00 10/31/24 08:18 Oxygen Delivery Method Room Air Weight: 144 lb 9.972 oz Body Mass Index (BMI) 26.4 Intake & Output: Intake and Output for Last 24 Hours 10/29/24 10/30/24 10/31/24 23:59 23:59 23:59 Intake Total 49.53 / 186.23 1323.36 / 1323.36 Balance 49.53 / 186.23 1323.36 / 1323.36 Lab / Micro Data 10/31/24 05:27 10/31/24 05:27 Labs: Laboratory Results - last 24 hr 10/30/24 12:08: WBC 7.9, RBC 3.63 L, Hgb 11.5 L, Hct 35.6 L, MCV 98.1, MCH 31.7,MCHC 32.3, RDW Std Deviation 48.1 H, RDW Coeff of Broderick 13.6, Plt Count 229, MPV 11.6, Immature Gran % (Auto) 0.500, Neut % (Auto) 72.3 H, Lymph % (Auto) 18.5 L,Jones % (Auto) 6.7, Eos % (Auto) 1.4, Baso % (Auto) 0.6, Absolute Neuts (auto) 5.7, Absolute Lymphs (auto) 1.47, Nucleated RBC % 0.3, Sodium 137, Potassium 5.0, Chloride 109 H, Carbon Dioxide 17.5 L, Anion Gap 10, BUN 40 H, Creatinine 2.27 H, Estim Creat Clear Calc 15.50 L, Est GFR (MDRD) Non-Af 20 L, BUN/Creatinine Ratio 17.7, Glucose 118 H, Calcium 9.1, Troponin T High Sens 45 HD, [place] [address] H 10/30/24 13:24: Blood Type A POSITIVE, Antibody Screen NEGATIVE 10/30/24 14:15: Urine Color Yellow, Urine Clarity Clear, Urine pH 6.0, Ur Specific [place] 1.020, Urine Protein 30 H, Urine Glucose (UA) Normal, Urine Ketones Negative, Urine Occult Blood Negative, Urine Nitrite Negative, Urine Bilirubin Negative, Urine Urobilinogen Normal, Ur Leukocyte Esterase 100 H, Urine RBC 0 SEEN, Urine WBC 5- 10 SEEN, Ur Squamous Epith Cells 0-5 SEEN, Urine Bacteria 3+, Hyaline Casts 0-5 SEEN, Urine Mucus RARE, U Random Total Protein 41.2 H 10/30/24 14:47: Troponin T Hi Sens 2 Hr 50 H 10/30/24 16:49: Troponin T Hi Sens 4Hr 43 H 10/31/24 05:27: WBC 6.6, RBC 3.24 L, Hgb 10.2 L, Hct 32.3 L, MCV 99.7 H, MCH 31.5, MCHC 31.6 L, RDW Std Deviation 48.1 H, RDW Coeff of Broderick 13.6, Plt Count 168, MPV 11.1, Immature Gran % (Auto) 0.500, Neut % (Auto) 62.5, Lymph % (Auto) 24.8, Jones % (Auto) 9.1, Eos % (Auto) 2.3, Baso % (Auto) 0.8, Absolute Neuts (auto) 4.1, Absolute Lymphs (auto) 1.64, Nucleated RBC % 0, Sodium 136, Potassium 4.2, Chloride 110 H, Carbon Dioxide 14.5 L, Anion Gap 12, BUN 38 H, Creatinine 2.14 H, Estim Creat Clear Calc 16.46 L, Est GFR (MDRD) Non-Af 22 L, BUN/Creatinine Ratio 17.6, Glucose 104 H, Calcium 8.7 Micro: Microbiology 10/30/24 13:23 Mucosa - Nose SARS-CoV-2, Influenza & RSV (PCR) - Final Radiography Diagnostic Testing: Radiology Impression Chest X-Ray 10/30/24 12:53 IMPRESSION: Small right pleural effusion. Cardiomegaly. Reading Location: [facility] Physical Exam Narrative Patient is states she has bilateral leg weakness for about 5 to 6 weeks and cannot walk from her bedroom to living room. Has been mostly restricted to home. Admitted with generalized weakness General: Alert, Oriented x3, Cooperative HEENT: Atraumatic, PERRLA, EOMI, Normocephalic Oral: No Gingival or Mucosal Lesions/ Ulcerations Neck: Supple, No JVD, Negative Carotid Bruits Chest wall/Lungs: Air entry diminished in bilateral lung bases. No crepitation/rhonchi Cardiovascular: A-fib, variable rate. Systolic murmur Abdomen: Bowel Sounds Present, Soft, Non Tender, Non-Distended : No dysuria. No renal angle tenderness. No suprapubic tenderness. Extremities: No edema, Capillary Refill Less than 3 Seconds Skin: No rashes, No breakdown Musculoskeletal: 4/5 at bilateral knees and hip joints. ROM mildly restricted, degenerative arthritis of knees. Neurological: DTR 2/4. Muscle weakness. Psych/Mental Status: Flat affect. Assessment & Plan Assessment/Plan (1) GERI (acute kidney injury): (2) Paroxysmal atrial fibrillation: PLAN: Plan 88-year-old female being admitted for generalized weakness, looking pale and nauseated. Patient denied chest pain, shortness of breath. Complain of severe leg weakness when ambulating any distance. 1. symptomatic A-fib with mild RVR: Patient is being admitted in PCU. Her heart rate was 130/min. Currently in low 90s. Discussed with the commonwealth attorney and amiodarone drip discontinued. Metoprolol 50 mg twice daily. On rivaroxaban. Plan for cardioversion tomorrow. Hold tomorrow morning dose of Lopressor. N.p.o. after midnight. 2. CAD, chronic diastolic heart failure, pulmonary hypertension: Losartan on hold due to GERI. Troponin slightly elevated flat and insignificant recent echo in October 21 shows normal EF 60% with PASP 64 mmHg consistent with moderate pulmonary hypertension. Normal atrial sizes. Patient had left heart cath in 2018. 3. GERI on CKD stage III: Baseline creatinine runs around 1.3-1.4. Admitted with creatinine 2.27. Patient was given IV fluid hydration. Lasix was held. 4. Hypertension and dyslipidemia: On Lipitor. Losartan on hold. Blood pressure is in normal range. Symptomatic slow A-fib/essential HTN/HLD/chronic diastolic CHF/pulmonary hypertension/GERI on CKD 3 5. Anemia of chronic disease in the setting of CKD 3 On iron therapy 6.. GERD ? Continue with PPI 4. Hypothyroidism ? TSH recently at 2.15 ? Continue with Synthroid DVT: Xarelto Charges/Coding Visit Charges Inpatient E&M: 92242 Subs Hosp L2 10/31/24 1650 <Electronically signed by Rory Trevizo MD> Cosigner Signature (if applicable): CC: ~ Signed [facility] Work Phone: [phone] 325-580905-05-2025 Consult note Author Jake Kingston [facility] Note Date/Time October 31, 2024 11:11a m [facility] Medical Records Department [address] [place] [address] Consultation - Cardiology 10/31/24 1052 MR#: [id number] Acct: [id number] Name: REINIER ELIZABETH Rep #:[id number] : 1935 88 From: Jake Kingston MD PCP: Dr. Anay Schuler MD Status:ADM I N Location: [place] [address] Assessment & Plan Assessment/Plan (1) Paroxysmal atrial fibrillation: PLAN: Patient's primary presenting complaint was extreme fatigability and bilateral lower extremity weakness. She had tried to do a vascular walking treadmill study in September that resulted in a hypertensive urgency and subsequently was diagnosed with atrial fibrillation with RVR. Her previous ECG from August 2024 showed sinus bradycardia. The patient has a history of having this profound fatigue when she is in atrial fibrillation in the past. She had been doing well until recently in her home environment. Now given her profound weakness I would recommend that we try to restore sinus rhythm. The patient will be continued on IV amiodarone. We will decrease her beta- alejandra therapy given her bradycardia when she was in sinus rhythm back in August2024. We will plan for direct-current cardioversion tomorrow around 1215 hrs. The patient's DNR status will need to be rescinded for 24 hours. I did discuss the procedure risk/benefit and alternatives with the family and they voiced understanding. (2) Essential hypertension: PLAN: Patient's blood pressure has been well-controlled on her current medical therapy. We will need to readjust her meds when she is in sinus rhythm depending on her heart rate and response to various medical therapy. (3) CHF (congestive heart failure): QUALIFIERS: Heart failure type: diastolic Heart failure chronicity: unspecified Qualified Code(s): I50.30 - Unspecified diastolic (congestive) heart failure PLAN: Patient has a history of heart failure with preserved ejection fraction. It appears now that she may be dehydrated. Her N-terminal BNP is 11,000 but sheis in atrial fibrillation. Her creatinine is 2.14 which is slightly down from admission. I would recommend we continue to hold her diuretic therapy. Recent echocardiogram in September 2024 showed normal ejection fraction of 60% with pulmonary artery pressures of 64 consistent with moderate pulmonary hypertension. Otherwise normal atrial sizes. PLAN: Plan 1. Will continue IV amiodarone. 2. Will decrease Lopressor to 50 twice daily. Will hold it tomorrow morning. 3. Will plan on direct-current cardioversion tomorrow around 1215 hrs. in the Support Services Manager. 4. N.p.o. after midnight except for meds. HPI Consult Data Date of Consult: 10/31/24 HPI Narrative Reason for Consultation: Weakness and atrial fibs with rapid ventricular response. HPI Narrative: REINIER ELIZABETH, is a 88 F who presents with a several day history of progressivelower extremity bilateral weakness. She also has noted that she is so wiped outfrom trying to walk around the bed to the bathroom that she has to sit down and rest. She has been documented to have heart rates in the 120 bpm range by her pulse ox and her blood pressure machine. She was recently seen in the office and her Coreg was discontinued and she was switched to metoprolol 50 mg twice daily. Her heart rate was elevated when she was in the emergency department at 100-115 bpm. EKG on admission showed atrial fibrillation with a heart rate of [address]-T wave changes. The patient does carry history of normal coronary arteries by heart catheterization 2017. She has been on uninterrupted Xarelto. She had amiodarone added last evening due to high heart rates. She has continued in atrial fibrillation with a heart rate 100?115. Patient had an ECG in August 2024 that was sinus bradycardia. She subsequent came in after a hypertensive episode in September 2024 and she was in atrial fibrillation at that time. Echocardiogram showed an EF of 60% both atria were normal size RV function was normal there was 2+ TR and pulmonary artery pressureestimated at 64. There was also a small pericardial effusion less than 1 cm. Given the patient's progressive symptoms I would recommend a limited echo be repeated to check her pericardial effusion. [facility] Medical History Hypothyroidism (acquired) Wears glasses Post-menopausal Thyroid disease Gastric reflux Former smoker History of edema History of echocardiogram History of stress test Cardiology follow-up encounter History of CHF (congestive heart failure) Paroxysmal atrial fibrillation Stage 3b chronic kidney disease (CKD) Elevated liver enzymes CKD (chronic kidney disease) stage 4, GFR 15-29 ml/min Stage 3b chronic kidney disease (CKD) Lymphedema of both lower extremities Bilateral lower extremity edema Dyspnea on exertion Pneumonia (03/19/22) Essential hypertension Atrial fibrillation, new onset Positive occult stool blood test Umbilical hernia Osteoporosis Hemorrhage of anus and rectum Glaucoma Acquired keratoderma Anemia Syncope Essential hypertension Sweating Palpitations Near syncope Hernia HLD (hyperlipidemia) Home Medications ?Medication ?Instructions ?Recorded ?Last Taken ?Type atorvastatin 20 mg tablet 20 mg PO QODAY Cholesterol 0 12/06/16 10/28/24 History timolol maleate 0.5 % eye drops 1 drp RIGHT EYE BID ey e drops 12/06/16 10/29/24 History brimonidine 0.15 % eye drops 1 drp ophthalmic (eye) BI D eye 03/25/22 10/29/24 History health levothyroxine 25 mcg tablet 25 mcg PO DAILY thyroid 10/30/24 History losartan 50 mg tablet 50 mg PO BID bp #180 tabs 10/30/24 Rx cholecalciferol (vitamin D3) 50 50 mcg PO BID suppleme nt 05/08/23 10/29/24 History mcg (2,000 unit) capsule mecobalamin (vitamin B12) 1,000 1,000 mcg PO DAILY sup plement 05/08/23 10/29/24 History mcg chewable tablet denosumab 60 mg/mL subcutaneous 60 mg subcut [id number] bone health 08/20/23 04/25/24 History syringe (Prolia) rivaroxaban 15 mg tablet (Xarelto) 15 mg PO DINNER blo od thinner #30 04/25/24 10/29/24 Rx tabs omeprazole 40 mg capsule,delayed 20 mg PO DAILY gerd 1 08/15/23 10/30/24 History release potassium chloride 10 mEq 20 meq PO DAILY 08/27/24 History capsule,extended release Held on 10/25/24. Instructions: Lasix on Hold vibegron 75 mg tablet (Gemtesa) 75 mg PO DAILY bladder 08/27/24 10/30/24 History furosemide 20 mg tablet 20 mg PO DAILY 30 days #0 ta bs 10/13/24 Unknown Rx Held on 10/30/24. Instructions: Ordered metoprolol tartrate 50 mg tablet 100 mg (2 x 50 mg) PO BID #60 tabs 10/25/24 10/30/24 Rx carvedilol 12.5 mg tablet 12.5 mg PO BID blood pressur e 10/30/24 Unknown History Held on 10/30/24. Instructions: Ordered ferrous sulfate 325 mg (65 mg 325 mg PO DAILY 10/30/24 10/29/24 History iron) tablet (Feosol) netarsudil 0.02 %-latanoprost 1 drp ophthalmic (eye) D AILY 10/30/24 10/29/24 History 0.005 % eye drops (Rocklatan) ondansetron HCl 4 mg tablet 4 mg PO Q8H PRN nausea/vom iting 10/30/24 10/30/24 History Allergy/AdvReac Type Severity Reaction Status Date / Time amantadine Allergy Rash Verified 10/30/24 11:17 cephalexin Allergy Rash Verified 10/30/24 11:17 erythromycin base Allergy Rash Verified 10/30/24 11:17 hydrochlorothiazide Allergy Rash Verified 10/30/24 11:17 Iodinated Contrast Media Allergy Rash Verified 10/30/24 11:17 nitrofurantoin (From Allergy Vomiting Verified 10/30/24 11:17 Macrobid) amlodipine (From Norvasc) AdvReac Other Verified 10/30/24 11:17 Family History Mother CAD (coronary artery disease) Father CAD (coronary artery disease) Brother CAD (coronary artery disease) Sister CAD (coronary artery disease) Surgical History History of cardiac catheterization Hx of esophagogastroduodenoscopy History of colonoscopy History of hysteroscopy H/O hernia repair Tubal ligation status History of left heart catheterization (02/05/18) s/p left wrist ORIF Social History household members: none housing: apartment number of children: 4 Smoking Status: Former smoker quit date: 06/29/76 alcohol intake: never substance use type: does not use caffeine: Yes (Occasionally) ROS Constitutional Constitutional: Reports as per HPI Eyes Eyes: Reports systems reviewed and no addt'l complaints, except as documented ENT HEENT: Reports systems reviewed and no addt'l complaints, except as documented Cardiovascular Cardiovascular: Reports as per HPI Respiratory/Chest Respiratory/Chest: Reports as per HPI Gastrointestinal Gastrointestinal: Reports systems reviewed and no addt'l complaints, except as documented Genitourinary Genitourinary: Reports systems reviewed and no addt'l complaints, except as documented Musculoskeletal Musculoskeletal: Reports systems reviewed and no addt'l complaints, except as documented Integumentary Integumentary: Reports systems reviewed and no addt'l complaints, except as documented Neurologic Neurologic: Reports as per HPI Psychiatric Psychiatric: Reports systems reviewed and no addt'l complaints, except as documented Endocrine Endocrinology: Reports systems reviewed and no addt'l complaints, except as documented Hematologic/Lymphatic Hematologic/Lymphatic: Reports systems reviewed and no addt'l complaints, exceptas documented Allergic/Immunologic Allergic/Immunologic: Reports systems reviewed and no addt'l complaints, except as documented Physical Exam Narrative Frail-appearing but in no apparent distress Const alert and oriented x3 HEENT normocephalic Eyes EOMs intact bilaterally Neck Neck Narrative: JVD noted at the clavicle at 45 degrees. Chest inspection of chest normal Resp normal respiratory effort Auscultation: diminished lung sounds bilateral lower Cardio Rate: regular rate Rhythm: abnormal rhythm irregularly irregular Heart Sounds: S1 normal and S2 normal; Negative for click, gallop or murmur GI normal to inspection, nondistended, normoactive bowel sounds Extremity no pedal edema Neuro Neuro Narrative: Alert and oriented x 3 Psych mental status grossly normal Risk Stratification Risk Stratification Applicable: No Charges/Coding Visit Charges Inpatient E&M: 14183 Init Hosp L3 Objective Data Vital Signs: Vital Signs Temp Pulse Resp BP Pulse Ox O2 Del Method 97.7 F L 96 20 H 112/82 H 97 Room Air 10/31/24 10:05 10/31/24 10:05 10/31/24 10:05 10/31/24 10:05 10/31/24 10:05 10/31/24 10:05 Oxygen Delivery Method Room Air Weight: 144 lb 9.972 oz Body Mass Index (BMI) 26.4 Intake & Output: Intake and Output for Last 24 Hours 10/29/24 10/30/24 10/31/24 23:59 23:59 23:59 Intake Total 49.53 / 186.23 1365.11 / 1365.11 Balance 49.53 / 186.23 1365.11 / 1365.11 Lab / Micro Data Attestation: I reviewed the patient's lab results. 10/31/24 05:27 10/31/24 05:27 Labs: Laboratory Results - last 24 hr 10/30/24 12:08: WBC 7.9, RBC 3.63 L, Hgb 11.5 L, Hct 35.6 L, MCV 98.1, MCH 31.7,MCHC 32.3, RDW Std Deviation 48.1 H, RDW Coeff of Broderick 13.6, Plt Count 229, MPV 11.6, Immature Gran % (Auto) 0.500, Neut % (Auto) 72.3 H, Lymph % (Auto) 18.5 L,Jones % (Auto) 6.7, Eos % (Auto) 1.4, Baso % (Auto) 0.6, Absolute Neuts (auto) 5.7, Absolute Lymphs (auto) 1.47, Nucleated RBC % 0.3, Sodium 137, Potassium 5.0, Chloride 109 H, Carbon Dioxide 17.5 L, Anion Gap 10, BUN 40 H, Creatinine 2.27 H, Estim Creat Clear Calc 15.50 L, Est GFR (MDRD) Non-Af 20 L, BUN/Creatinine Ratio 17.7, Glucose 118 H, Calcium 9.1, Troponin T High Sens 45 HD, [place] [address] H 10/30/24 13:24: Blood Type A POSITIVE, Antibody Screen NEGATIVE 10/30/24 14:15: Urine Color Yellow, Urine Clarity Clear, Urine pH 6.0, Ur Specific [place] 1.020, Urine Protein 30 H, Urine Glucose (UA) Normal, Urine Ketones Negative, Urine Occult Blood Negative, Urine Nitrite Negative, Urine Bilirubin Negative, Urine Urobilinogen Normal, Ur Leukocyte Esterase 100 H, Urine RBC 0 SEEN, Urine WBC 5- 10 SEEN, Ur Squamous Epith Cells 0-5 SEEN, Urine Bacteria 3+, Hyaline Casts 0-5 SEEN, Urine Mucus RARE, U Random Total Protein 41.2 H 10/30/24 14:47: Troponin T Hi Sens 2 Hr 50 H 10/30/24 16:49: Troponin T Hi Sens 4Hr 43 H 10/31/24 05:27: WBC 6.6, RBC 3.24 L, Hgb 10.2 L, Hct 32.3 L, MCV 99.7 H, MCH 31.5, MCHC 31.6 L, RDW Std Deviation 48.1 H, RDW Coeff of Broderick 13.6, Plt Count 168, MPV 11.1, Immature Gran % (Auto) 0.500, Neut % (Auto) 62.5, Lymph % (Auto) 24.8, Jones % (Auto) 9.1, Eos % (Auto) 2.3, Baso % (Auto) 0.8, Absolute Neuts (auto) 4.1, Absolute Lymphs (auto) 1.64, Nucleated RBC % 0, Sodium 136, Potassium 4.2, Chloride 110 H, Carbon Dioxide 14.5 L, Anion Gap 12, BUN 38 H, Creatinine 2.14 H, Estim Creat Clear Calc 16.46 L, Est GFR (MDRD) Non-Af 22 L, BUN/Creatinine Ratio 17.6, Glucose 104 H, Calcium 8.7 Micro: Microbiology 10/30/24 13:23 Mucosa - Nose SARS-CoV-2, Influenza & RSV (PCR) - Final Rhythm Strip Rhythm Strip: A-fib Rate: 100 Cardiology Labs/Tests 10/30/24 12:08: WBC 7.9, RBC 3.63 L, Hgb 11.5 L, Hct 35.6 L, MCV 98.1, MCH 31.7,MCHC 32.3, Plt Count 229, MPV 11.6, Immature Gran % (Auto) 0.500, Neut % (Auto) 72.3 H, Lymph % (Auto) 18.5 L, Jones % (Auto) 6.7, Eos % (Auto) 1.4, Baso % (Auto) 0.6, Absolute Neuts (auto) 5.7, Nucleated RBC % 0.3, Sodium 137, Potassium 5.0, Chloride 109 H, Carbon Dioxide 17.5 L, Anion Gap 10, BUN 40 H, Creatinine 2.27 H, Est GFR (MDRD) Non-Af 20 L, BUN/Creatinine Ratio 17.7, [id number] H, Calcium 9.1 10/30/24 14:15: Urine Color Yellow, Urine Clarity Clear, Urine pH 6.0, Ur Specific [place] 1.020, Urine Protein 30 H, Urine Glucose (UA) Normal, Urine Ketones Negative, Urine Occult Blood Negative, Urine Nitrite Negative, Urine Bilirubin Negative, Urine Urobilinogen Normal, Ur Leukocyte Esterase 100 H, Urine RBC 0 SEEN, Urine WBC 5- 10 SEEN 10/31/24 05:27: WBC 6.6, RBC 3.24 L, Hgb 10.2 L, Hct 32.3 L, MCV 99.7 H, MCH 31.5, MCHC 31.6 L, Plt Count 168, MPV 11.1, Immature Gran % (Auto) 0.500, Neut %(Auto) 62.5, Lymph % (Auto) 24.8, Jones % (Auto) 9.1, Eos % (Auto) 2.3, Baso % (Auto) 0.8, Absolute Neuts (auto) 4.1, Nucleated RBC % 0, Sodium 136, Potassium 4.2, Chloride 110 H, Carbon Dioxide 14.5 L, Anion Gap 12, BUN 38 H, Creatinine 2.14 H, Est GFR (MDRD) Non-Af 22 L, BUN/Creatinine Ratio 17.6, Glucose 104 H, Calcium 8.7 Rhythm: EKG: ECHO: Stress Test: Cardiac Cath: PCI: CT Surgery: Holter monitor: EPS: PPM: CXR: Chest CT Scan: Radiography Diagnostic Testing: Radiology Impression Chest X-Ray 10/30/24 12:53 IMPRESSION: Small right pleural effusion. Cardiomegaly. Reading Location: [facility] 10/31/24 1111 <Electronically signed by Jake Kingston MD> Cosigner Signature (if applicable): CC: Dr. Anay Schuler MD~ Signed [facility] Work Phone: [phone] 700-277405-04-2025 History and physical note Author Nirav Cain [facility] Note Date/Time October 30, 2024 8:37pm [facility] Medical Records Department [address] [place] [id number] H&P Exam - Hospitalist 10/30/24 1720 MR#: [id number] Acct: [id number] Name: REINIER ELIZABETH Rep #:[id number] : 1935 88 From: Nirav ellis MD PCP: Dr. Anay Schuler MD Status:ADM I N Location: [facility] [id number]- [id number] HPI - General General Date of Admission: 10/30/24 HPI Narrative REINIER ELIZABETH, is a 88 F who presents to the hospital feeling just general malaise. She has been having leg weakness and cramping she had been having somepalpitations with episodic lightheadedness. She was recently in the hospital for A-fib and was discharged on slow A-fib and had done well for about 4 days. She was continued on her Coreg without much issue, she was also found to have pulmonary hypertension on the echocardiogram in September and therefore was also started on a very low-dose of Lasix 20 mg p.o. daily. Since that time it appears that she has been having some dehydration issues with a rise in her creatinine. She denies any significant shortness of breath but notices her palpitations and just feels off but her symptoms tend to to be vague. She has recently seen cardiology who held her Lasix and changed her Coreg to metoprolol 100 mg p.o. twice daily as she was having some soft pressures on the Coreg. No recent fevers or chills or general illnesses. Troponin was unremarkable, renal function got worse to 2.27 with a baseline of around 1.3 and her troponins are elevated but insignificant and her proBNP was 11,000 which is to be expected given the rise in her creatinine. [facility] Medical History Hypothyroidism (acquired) Wears glasses Post-menopausal Thyroid disease Gastric reflux Former smoker History of edema History of echocardiogram History of stress test Cardiology follow-up encounter History of CHF (congestive heart failure) Paroxysmal atrial fibrillation Stage 3b chronic kidney disease (CKD) Elevated liver enzymes CKD (chronic kidney disease) stage 4, GFR 15-29 ml/min Stage 3b chronic kidney disease (CKD) Lymphedema of both lower extremities Bilateral lower extremity edema Dyspnea on exertion Pneumonia (03/19/22) Essential hypertension Atrial fibrillation, new onset Positive occult stool blood test Umbilical hernia Osteoporosis Hemorrhage of anus and rectum Glaucoma Acquired keratoderma Anemia Syncope Essential hypertension Sweating Palpitations Near syncope Hernia HLD (hyperlipidemia) Home Medications ?Medication ?Instructions ?Recorded ?Last Taken ?Type atorvastatin 20 mg tablet 20 mg PO QODAY Cholesterol 0 12/06/16 10/28/24 History timolol maleate 0.5 % eye drops 1 drp RIGHT EYE BID ey e drops 12/06/16 10/29/24 History brimonidine 0.15 % eye drops 1 drp ophthalmic (eye) BI D eye 03/25/22 10/29/24 History health levothyroxine 25 mcg tablet 25 mcg PO DAILY thyroid 10/30/24 History losartan 50 mg tablet 50 mg PO BID bp #180 tabs 10/30/24 Rx cholecalciferol (vitamin D3) 50 50 mcg PO BID suppleme nt 05/08/23 10/29/24 History mcg (2,000 unit) capsule mecobalamin (vitamin B12) 1,000 1,000 mcg PO DAILY sup plement 05/08/23 10/29/24 History mcg chewable tablet denosumab 60 mg/mL subcutaneous 60 mg subcut [id number] bone health 08/20/23 04/25/24 History syringe (Prolia) rivaroxaban 15 mg tablet (Xarelto) 15 mg PO DINNER blo od thinner #30 04/25/24 10/29/24 Rx tabs omeprazole 40 mg capsule,delayed 20 mg PO DAILY gerd 1 08/15/23 10/30/24 History release potassium chloride 10 mEq 20 meq PO DAILY 08/27/24 History capsule,extended release Held on 10/25/24. Instructions: Lasix on Hold vibegron 75 mg tablet (Gemtesa) 75 mg PO DAILY bladder 08/27/24 10/30/24 History furosemide 20 mg tablet 20 mg PO DAILY 30 days #0 ta bs 10/13/24 Unknown Rx Held on 10/30/24. Instructions: MD Ordered metoprolol tartrate 50 mg tablet 100 mg (2 x 50 mg) PO BID #60 tabs 10/25/24 10/30/24 Rx carvedilol 12.5 mg tablet 12.5 mg PO BID blood pressur e 10/30/24 Unknown History Held on 10/30/24. Instructions: MD Ordered ferrous sulfate 325 mg (65 mg 325 mg PO DAILY 10/30/24 10/29/24 History iron) tablet (Feosol) netarsudil 0.02 %-latanoprost 1 drp ophthalmic (eye) D AILY 10/30/24 10/29/24 History 0.005 % eye drops (Rocklatan) ondansetron HCl 4 mg tablet 4 mg PO Q8H PRN nausea/vom iting 10/30/24 10/30/24 History Allergy/AdvReac Type Severity Reaction Status Date / Time amantadine Allergy Rash Verified 10/30/24 11:17 cephalexin Allergy Rash Verified 10/30/24 11:17 erythromycin base Allergy Rash Verified 10/30/24 11:17 hydrochlorothiazide Allergy Rash Verified 10/30/24 11:17 Iodinated Contrast Media Allergy Rash Verified 10/30/24 11:17 nitrofurantoin (From Allergy Vomiting Verified 10/30/24 11:17 Macrobid) amlodipine (From Norvasc) AdvReac Other Verified 10/30/24 11:17 Family History Mother CAD (coronary artery disease) Father CAD (coronary artery disease) Brother CAD (coronary artery disease) Sister CAD (coronary artery disease) Surgical History (Reviewed 10/24/24 @ 15:54 by Ning Spencer ENVIRONMENTAL ISSUES INSTRUCTOR, ENVIRONMENTAL ISSUES INSTRUCTOR-C) History of cardiac catheterization Hx of esophagogastroduodenoscopy History of colonoscopy History of hysteroscopy H/O hernia repair Tubal ligation status History of left heart catheterization (02/05/18) s/p left wrist ORIF Social History household members: none housing: apartment number of children: 4 Smoking Status: Former smoker quit date: 06/29/76 alcohol intake: never substance use type: does not use caffeine: Yes (Occasionally) ROS Constitutional Constitutional: Reports fatigue, malaise and weakness; Denies chills or fever(s) Eyes Eyes: Denies blurry vision ENT HEENT: Denies headache(s) or nasal discharge Cardiovascular Cardiovascular: Reports lightheadedness and palpitations; Denies chest pain, dyspnea on exertion or syncope Respiratory/Chest Respiratory/Chest: Denies cough, shortness of breath at rest or shortness of breath with exertion Gastrointestinal Gastrointestinal: Denies constipation, diarrhea, nausea or vomiting Genitourinary Genitourinary: Denies dysuria Neurologic Neurologic: Denies focal weakness, numbness or tremor(s) Psychiatric Psychiatric: Denies anxiety or depression Vital Signs Vital Signs Vital Signs: 10/30/24 11:18 10/30/24 11:19 10/30/24 11:19 Temperature 97.2 F L 97.6 F L Temperature Source Temporal Oral Pulse Rate 118 H 113 H Respiratory Rate 19 H 18 Respiratory Effort Normal Respiratory Pattern Normal Blood Pressure 115/75 104/78 Blood Pressure Mean 88 86 Pulse Ox 98 98 Oxygen Delivery Method Room Air Room Air 10/30/24 12:19 10/30/24 13:00 10/30/24 14:00 Temperature 98.7 F 98.2 F 97.9 F Temperature Source Oral Oral Oral Pulse Rate 127 H 132 H 116 H Respiratory Rate 18 20 H 20 H Respiratory Effort Respiratory Pattern Blood Pressure 107/78 108/88 H 137/109 H Blood Pressure Mean 87 94 118 Pulse Ox 99 98 99 Oxygen Delivery Method Room Air Room Air Room Air 10/30/24 15:00 10/30/24 15:28 10/30/24 15:43 Temperature Temperature Source Pulse Rate 124 H 79 70 Respiratory Rate 15 21 H 15 Respiratory Effort Respiratory Pattern Blood Pressure 119/90 H 110/49 L 119/60 Blood Pressure Mean 99 69 79 Pulse Ox 97 99 99 Oxygen Delivery Method Room Air Room Air Room Air 10/30/24 16:25 10/30/24 17:00 Temperature 97.8 F Temperature Source Pulse Rate 79 95 Respiratory Rate 22 H 22 H Respiratory Effort Respiratory Pattern Blood Pressure 140/61 H 157/70 H Blood Pressure Mean 87 99 Pulse Ox 98 97 Oxygen Delivery Method Room Air Weight Weight: 144 lb 2.917 oz Body Mass Index (BMI) 26.4 Physical Exam Narrative General: Alert, Oriented x3, Cooperative, No apparent distress HEENT: Atraumatic, PERRLA, EOMI, Normocephalic Oral: Moist Mucosa Neck: Supple, No JVD Lungs: Diminished, Normal air movement, No rhonchi, No wheeze, No rales Cardiovascular: Regular rate, A-fib, Normal S1, Normal S2, No murmurs Abdomen: Soft, Non Tender, Non-Distended, No Hepato-splenomegaly Extremities: No edema, Capillary Refill Less than 3 Seconds Skin: No rashes, No breakdown Musculoskeletal: No Tenderness to Palpation of Joints or Extremities Neurological: No focal neurological deficits, moves all extremities Psych/Mental Status: Flat Results Lab / Micro Data 10/30/24 12:08 10/30/24 12:08 Labs: Laboratory Results - last 24 hr 10/30/24 12:08: WBC 7.9, RBC 3.63 L, Hgb 11.5 L, Hct 35.6 L, MCV 98.1, MCH 31.7,MCHC 32.3, RDW Std Deviation 48.1 H, RDW Coeff of Broderick 13.6, Plt Count 229, MPV 11.6, Immature Gran % (Auto) 0.500, Neut % (Auto) 72.3 H, Lymph % (Auto) 18.5 L,Jones % (Auto) 6.7, Eos % (Auto) 1.4, Baso % (Auto) 0.6, Absolute Neuts (auto) 5.7, Absolute Lymphs (auto) 1.47, Nucleated RBC % 0.3, Sodium 137, Potassium 5.0, Chloride 109 H, Carbon Dioxide 17.5 L, Anion Gap 10, BUN 40 H, Creatinine 2.27 H, Estim Creat Clear Calc 15.50 L, Est GFR (MDRD) Non-Af 20 L, BUN/Creatinine Ratio 17.7, Glucose 118 H, Calcium 9.1, Troponin T High Sens 45 HD, [place] [address] H 10/30/24 13:24: Blood Type A POSITIVE, Antibody Screen NEGATIVE 10/30/24 14:15: Urine Color Yellow, Urine Clarity Clear, Urine pH 6.0, Ur Specific [place] 1.020, Urine Protein 30 H, Urine Glucose (UA) Normal, Urine Ketones Negative, Urine Occult Blood Negative, Urine Nitrite Negative, Urine Bilirubin Negative, Urine Urobilinogen Normal, Ur Leukocyte Esterase 100 H, Urine RBC 0 SEEN, Urine WBC 5- 10 SEEN, Ur Squamous Epith Cells 0-5 SEEN, Urine Bacteria 3+, Hyaline Casts 0-5 SEEN, Urine Mucus RARE, U Random Total Protein 41.2 H 10/30/24 14:47: Troponin T Hi Sens 2 Hr 50 H 10/30/24 16:49: Troponin T Hi Sens 4Hr 43 H Micro: Microbiology 10/30/24 13:23 Mucosa - Nose SARS-CoV-2, Influenza & RSV (PCR) - Final Imaging Radiology Impression Chest X-Ray 10/30/24 12:53 IMPRESSION: Small right pleural effusion. Cardiomegaly. Reading Location: [id number] Assessment & Plan Assessment/Plan (1) GERI (acute kidney injury): (2) Paroxysmal atrial fibrillation: PLAN: Plan 1. Symptomatic slow A-fib/essential HTN/HLD/chronic diastolic CHF/pulmonary hypertension/GERI on CKD 3 ? She remains in slow A-fib, will consult cardiology ? Troponins are slightly elevated and insignificant ? Will not repeat an echo as she just had one on 10/12/2024 with an EF of 60% andPASP of 64 mmHg ? She does have an GERI, baseline creatinine is around 1.3-1.4 currently 2.27 which is likely falsely elevating her proBNP, continue with some gentle IV hydration and hold her Lasix ? Will start her on an amiodarone drip and continue with her metoprolol, if she is not chemically converted may need cardioversion ? Continue Xarelto ? Will hold her losartan secondary to her GERI ? Continue with Lipitor 2. Anemia of chronic disease in the setting of CKD 3 ? Continue with her iron replacement ? Will monitor and make adjustments as necessary 3. GERD ? Stable ? Continue with PPI 4. Hypothyroidism ? TSH recently at 2.15 ? Continue with Synthroid ? Stable DVT: Xarelto 75 minutes was spent on direct patient care, including documentation as well as chart review and collaboration with colleagues Charges/Coding Visit Charges Inpatient E&M: 04817 Init Hosp L3 10/30/242036 <Electronically signed by Nirav Cain MD> Cosigner Signature (if applicable): CC: Dr. Anay Schuler MD; Dr. Nirav Cain MD~ Signed [facility] Work Phone: 1(157) 630-556805-04-2025 Evaluation note* Diagnosis Onset Date Resolution Status Admit Date CHF (congestive heart failure) acute October 30, 2024 5:20pm Paroxysmal atrial fibrillation acute October 30, 2024 5:20pm Essential hypertension chronic Ma y 2024 5:20pm GERI (acute kidney injury) resolved October 30, 2024 5:20pm Chronic kidney disease inactive Ma y 2024 5:20pm Osteoporosis chronic November 08 1:42pm CHF (congestive heart failure) acute November 11, 2024 1:54pm HLD (hyperlipidemia) acute November 11, 2024 1:54pm Essential hypertension chronic Ma y 2024 1:54pm Atrial fibrillation with RVR inactiv e November 11, 2024 1:54pm CHF (congestive heart failure) acute November 25, 2024 1:41pm HLD (hyperlipidemia) acute November 25, 2024 1:41pm Essential hypertension chronic Ma y 2024 1:41pm Atrial fibrillation with RVR inactiv e November 25, 2024 1:41pm CHF (congestive heart failure) acute January 09, 2025 11:29am Paroxysmal atrial fibrillation acute January 09, 2025 11:29am Essential hypertension chronic Ju ly 2024 11:29am Mixed incontinence acute February 22, 2025 1:23pm Nocturia acute February 22, 2 025 1:23pm Overactive bladder acute February 22, 2025 1:23pm Urinary tract infection acute A ugust 2024 1:23pm [facility] Work Phone: [phone] 677-235705-04-2025 Discharge summary Author Jose Mcgraw [facility] Note Date/Time October 30, 2024 4:55pm [facility] Medical Records Department [address] [place] [address] Emergency Department Summary 10/30/24 MR#: [id number] Acct: [id number] Name: REINIER ELIZABETH Rep #:[id number] : 1935 88 From: Jose Guzman PCP: Dr. Anay Schuler MD Status:REG E R Location: ED HPI History of Present Illness Chief Complaint: Weakness PFSH [facility] Medical History (Reviewed 10/24/24 @ 15:54 by Ning Spencer ENVIRONMENTAL ISSUES INSTRUCTOR, ENVIRONMENTAL ISSUES INSTRUCTOR-C) Hypothyroidism (acquired) Wears glasses Post-menopausal Thyroid disease Gastric reflux Former smoker History of edema History of echocardiogram History of stress test Cardiology follow-up encounter History of CHF (congestive heart failure) Paroxysmal atrial fibrillation Stage 3b chronic kidney disease (CKD) Elevated liver enzymes CKD (chronic kidney disease) stage 4, GFR 15-29 ml/min Stage 3b chronic kidney disease (CKD) Lymphedema of both lower extremities Bilateral lower extremity edema Dyspnea on exertion Pneumonia (03/19/22) Essential hypertension Atrial fibrillation, new onset Positive occult stool blood test Umbilical hernia Osteoporosis Hemorrhage of anus and rectum Glaucoma Acquired keratoderma Anemia Syncope Essential hypertension Sweating Palpitations Near syncope Hernia HLD (hyperlipidemia) Home Medications ?Medication ?Instructions ?Recorded ?Last Taken ?Type atorvastatin 20 mg tablet 20 mg PO QODAY Cholesterol 0 12/06/16 10/28/24 History timolol maleate 0.5 % eye drops 1 drp RIGHT EYE BID ey e drops 12/06/16 10/29/24 History brimonidine 0.15 % eye drops 1 drp ophthalmic (eye) BI D eye 03/25/22 10/29/24 History health levothyroxine 25 mcg tablet 25 mcg PO DAILY thyroid 10/30/24 History losartan 50 mg tablet 50 mg PO BID bp #180 tabs 10/30/24 Rx cholecalciferol (vitamin D3) 50 50 mcg PO BID suppleme nt 05/08/23 10/29/24 History mcg (2,000 unit) capsule mecobalamin (vitamin B12) 1,000 1,000 mcg PO DAILY sup plement 05/08/23 10/29/24 History mcg chewable tablet denosumab 60 mg/mL subcutaneous 60 mg subcut [id number] bone health 08/20/23 04/25/24 History syringe (Prolia) rivaroxaban 15 mg tablet (Xarelto) 15 mg PO DINNER blo od thinner #30 04/25/24 10/29/24 Rx tabs omeprazole 40 mg capsule,delayed 20 mg PO DAILY gerd 1 08/15/23 10/30/24 History release potassium chloride 10 mEq 20 meq PO DAILY 08/27/24 History capsule,extended release Held on 10/25/24. Instructions: Lasix on Hold vibegron 75 mg tablet (Gemtesa) 75 mg PO DAILY bladder 08/27/24 10/30/24 History furosemide 20 mg tablet 20 mg PO DAILY 30 days #0 ta bs 10/13/24 Unknown Rx Held on 10/30/24. Instructions: MD Ordered metoprolol tartrate 50 mg tablet 100 mg (2 x 50 mg) PO BID #60 tabs 10/25/24 10/30/24 Rx carvedilol 12.5 mg tablet 12.5 mg PO BID blood pressur e 10/30/24 Unknown History Held on 10/30/24. Instructions: MD Ordered ferrous sulfate 325 mg (65 mg 325 mg PO DAILY 10/30/24 10/29/24 History iron) tablet (Feosol) netarsudil 0.02 %-latanoprost 1 drp ophthalmic (eye) D AILY 10/30/24 10/29/24 History 0.005 % eye drops (Rocklatan) ondansetron HCl 4 mg tablet 4 mg PO Q8H PRN nausea/vom iting 10/30/24 10/30/24 History Allergy/AdvReac Type Severity Reaction Status Date / Time amantadine Allergy Rash Verified 10/30/24 11:17 cephalexin Allergy Rash Verified 10/30/24 11:17 erythromycin base Allergy Rash Verified 10/30/24 11:17 hydrochlorothiazide Allergy Rash Verified 10/30/24 11:17 Iodinated Contrast Media Allergy Rash Verified 10/30/24 11:17 nitrofurantoin (From Allergy Vomiting Verified 10/30/24 11:17 Macrobid) amlodipine (From Norvasc) AdvReac Other Verified 10/30/24 11:17 Family History (Reviewed 10/24/24 @ 15:54 by Ning Spencer ENVIRONMENTAL ISSUES INSTRUCTOR, ENVIRONMENTAL ISSUES INSTRUCTOR-C) Mother CAD (coronary artery disease) Father CAD (coronary artery disease) Brother CAD (coronary artery disease) Sister CAD (coronary artery disease) Surgical History (Reviewed 10/24/24 @ 15:54 by Ning Spencer ENVIRONMENTAL ISSUES INSTRUCTOR, ENVIRONMENTAL ISSUES INSTRUCTOR-C) History of cardiac catheterization Hx of esophagogastroduodenoscopy History of colonoscopy History of hysteroscopy H/O hernia repair Tubal ligation status History of left heart catheterization (02/05/18) s/p left wrist ORIF Social History (Reviewed 10/24/24 @ 15:54 by Ning Spencer ENVIRONMENTAL ISSUES INSTRUCTOR, ENVIRONMENTAL ISSUES INSTRUCTOR-C) household members: none housing: apartment number of children: 4 Smoking Status: Former smoker quit date: 06/29/76 alcohol intake: never substance use type: does not use caffeine: Yes (Occasionally) EXAM Physical Exam Const Vital Signs: 10/30/24 11:18 10/30/24 11:19 10/30/24 11:19 Temperature 97.2 F L 97.6 F L Temperature Source Temporal Oral Pulse Rate 118 H 113 H Respiratory Rate 19 H 18 Respiratory Effort Normal Respiratory Pattern Normal Blood Pressure 115/75 104/78 Blood Pressure Mean 88 86 Pulse Ox 98 98 Oxygen Delivery Method Room Air Room Air 10/30/24 12:19 10/30/24 13:00 10/30/24 14:00 Temperature 98.7 F 98.2 F 97.9 F Temperature Source Oral Oral Oral Pulse Rate 127 H 132 H 116 H Respiratory Rate 18 20 H 20 H Respiratory Effort Respiratory Pattern Blood Pressure 107/78 108/88 H 137/109 H Blood Pressure Mean 87 94 118 Pulse Ox 99 98 99 Oxygen Delivery Method Room Air Room Air Room Air 10/30/24 15:00 10/30/24 15:28 10/30/24 15:43 Temperature Temperature Source Pulse Rate 124 H 79 70 Respiratory Rate 15 21 H 15 Respiratory Effort Respiratory Pattern Blood Pressure 119/90 H 110/49 L 119/60 Blood Pressure Mean 99 69 79 Pulse Ox 97 99 99 Oxygen Delivery Method Room Air Room Air Room Air 10/30/24 16:25 Temperature 97.8 F Temperature Source Pulse Rate 79 Respiratory Rate 22 H Respiratory Effort Respiratory Pattern Blood Pressure 140/61 H Blood Pressure Mean 87 Pulse Ox 98 Oxygen Delivery Method [facility] Narrative Medical decision making narrative: HISTORY OF PRESENT ILLNESS: Chief complaint: Weakness 88-year-old female history of CHF, CKD, hyperlipidemia, hypertension, CAD statuspost left heart cath in 2018, anemia, atrial fibrillation currently on Xarelto presents with generalized weakness and nausea. She states she feels diffuse weakness of the past several days. Notes a cough is nonproductive. Denies chest pain. Denies shortness of breath. No she is very fatigued with walking. She notes severe leg weakness when ambulating any distance. She notes compliance all of her medications. She notes he was recently taken off her water pill. No she was recent started on metoprolol from carvedilol. Denies vomiting. Denies abdominal pain. Denies urinary complaint such as frequency urgency or dysuria. Denies melena or hematochezia. Denies leg swelling. REVIEW OF SYSTEMS: Pertinent positives: Weakness, pallor Pertinent negatives: As per HPI PHYSICAL EXAM: Nursing triage notes reviewed, Vital signs reviewed Constitutional: please see mdm HENT: MMM Eyes: Pupils equal round and reactive to light, Extraocular muscles intact Neck: No stridor, no JVD, full neck ROM Lungs: Clear to auscultation, No wheezing or rales. No increased work of breathing, no conversational dyspnea, no accessory muscle use, no nasal flaring. No respiratory distress noted Heart: Fast, irregular rate consistent with A-fib no murmurs, No rubs and No gallops, 2+ distal pulses (radial, femoral, posterior tibial) in all extremities Abdomen: Soft, there is no tenderness, rigidity, rebound or guarding, no obviousperitoneal signs, no palpable pulsatile abdominal masses, no auscultated abdominal bruit : No CVAT Extremities: No edema Neuro: No new focal neurological deficits, cranial nerves II through XII intact,5/5 strength in all present extremities. Intact sensation to light touch in all present extremities, 2+ reflexes bilateral patella tendons. Skin: Significant skin pallor noted MEDICAL DECISION MAKING: Chief Complaint: please see [facility] External records reviewed: Reviewed prior cardiovascular testing: Reviewed echocardiogram from September 2024 showed ejection fraction of 60% Recent ED visit and hospitalization for A-fib with RVR. Factors affecting care:As per HPI Social determinants of health: none History obtained from others: none [] Consults: 1. Cardiology (Dr. Granado) discussed the case. Recommended admission for diuresis, rate control and telemetry monitoring. 2. Internal medicine (Dr. Cain) MDM Narrative: The patient was initially tachycardic with a heart rate of 113, afebrile saturating 99% room air. Exam without focal deficits. Noted significant pallor I considered the following differential diagnosis: Arrhythmia, anemia, electro disturbance, UTI, pneumonia, dehydration, CVA I obtained a broad lab and imaging workup to further elucidate etiology of patient's complaints. Initially gave 1 dose of 5 mg of IV metoprolol given initial EKG showed A-fib with RVR ALL IMAGES (IF OBTAINED) HAVE BEEN PERSONALLY REVIEWED AND INTERPRETED BY MYSELF. EKG with atrial fibrillation, RVR, normal axis, no STEMI CBC without leukocytosis, noted improved anemia, no thrombocytopenia BMP with GERI on CKD, no other significant electrolyte abnormalities, BNP elevated to 11,000 consistent with volume overload and heart failure Urinalysis shows no evidence of urinary inflammation suggestive of UTI Chest x-ray was read reviewed personally by myself cardiomegaly, some slight venous congestion by my read. Radiologist noted small right pleural effusion High-sensitivity troponin values negative for ACS The synthesis of the patient's history, physical exam, labs images suggest A-fib with RVR induced heart failure exacerbation complicated by GERI on CKD. Given difficulty in balancing volume overload, diuresis and acute kidney injury will admit to the hospital for further management. Discussed with cardiology who agreed with admission. Discussed with hospitalist. The patient and/or family, caregivers express understanding. The patient and/or family, caregivers agrees with the plan. Shared decision making: I will have a discussion with the patient and or visitors regarding risk/benefits of further testing or admission. They will be made aware of of the risk/benefits inherent in this decision they will be given the opportunity to voice understanding. Total critical care time today provided was at least 0 minutes. This excludes separately billable procedures. Critical care time (if documented) is secondary to the patient having high probability of clinically significant/life threatening deterioration in the patient's condition which required my urgent intervention. Impression: 1. CHF exacerbation 2. A-fib with RVR 3. GERI on CKD Dispo: Admit to PCU This note was generated with [employer]Nod dictation software. It may contain incorrect words, spelling, and punctuation that were not noted in review of the chart prior to signing. Lab Data Labs: Laboratory Results - last 24 hr 10/30/24 10/30/24 10/30/24 12:08 13:24 14:15 WBC 7.9 RBC 3.63 L Hgb 11.5 L Hct 35.6 L MCV 98.1 MCH 31.7 MCHC 32.3 RDW Std Deviation 48.1 H RDW Coeff of Broderick 13.6 Plt Count 229 MPV 11.6 Immature Gran % (Auto) 0.500 Neut % (Auto) 72.3 H Lymph % (Auto) 18.5 L Jones % (Auto) 6.7 Eos % (Auto) 1.4 Baso % (Auto) 0.6 Absolute Neuts (auto) 5.7 Absolute Lymphs (auto) 1.47 Nucleated RBC % 0.3 Sodium 137 Potassium 5.0 Chloride 109 H Carbon Dioxide 17.5 L Anion Gap 10 BUN 40 H Creatinine 2.27 H Estim Creat Clear Calc 15.50 L Est GFR (MDRD) Non-Af 20 L BUN/Creatinine Ratio 17.7 Glucose 118 H Calcium 9.1 Troponin T High Sens 45 H D Troponin T Hi Sens 2 [place] [address] H Urine Color Yellow Urine Clarity Clear Urine pH 6.0 Ur Specific [place] 1.020 Urine Protein 30 H Urine Glucose (UA) Normal Urine Ketones Negative Urine Occult Blood Negative Urine Nitrite Negative Urine Bilirubin Negative Urine Urobilinogen Normal Ur Leukocyte Esterase 100 H Urine RBC 0 SEEN Urine WBC 5-10 SEEN Ur Squamous Epith Cells 0-5 SEEN Urine Bacteria 3+ Hyaline Casts 0-5 SEEN Urine Mucus RARE U Random Total Protein 41.2 H Blood Type A POSITIVE Antibody Screen NEGATIVE 10/30/24 14:47 WBC RBC Hgb Hct MCV MCH MCHC RDW Std Deviation RDW Coeff of Broderick Plt Count MPV Immature Gran % (Auto) Neut % (Auto) Lymph % (Auto) Jones % (Auto) Eos % (Auto) Baso % (Auto) Absolute Neuts (auto) Absolute Lymphs (auto) Nucleated RBC % Sodium Potassium Chloride Carbon Dioxide Anion Gap BUN Creatinine Estim Creat Clear Calc Est GFR (MDRD) Non-Af BUN/Creatinine Ratio Glucose Calcium Troponin T High Sens Troponin T Hi Sens 2 Hr 50 H NT pro BNP II Urine Color Urine Clarity Urine pH Ur Specific [place] Urine Protein Urine Glucose (UA) Urine Ketones Urine Occult Blood Urine Nitrite Urine Bilirubin Urine Urobilinogen Ur Leukocyte Esterase Urine RBC Urine WBC Ur Squamous Epith Cells Urine Bacteria Hyaline Casts Urine Mucus U Random Total Protein Blood Type Antibody Screen Radiography Diagnostic Testing: Clinical Impression(s) from Imaging Studies Chest X-Ray 10/30/24 12:53 IMPRESSION: Small right pleural effusion. Cardiomegaly. Reading Location: [id number] Discharge Plan Triage Chief Complaint: Weakness ED Provider: Jose Mcgraw Dx/Rx/DC Orders Prescriptions: No Action levothyroxine 25 mcg tablet 25 mcg PO DAILY brimonidine 0.15 % drops 1 drp ophthalmic (eye) BID Rx Instructions: right eye omeprazole 40 mg capsule,delayed release(DR/EC) 20 mg PO DAILY Prolia 60 mg/mL syringe 60 mg subcut [id number] Patient Comments: STARTS END UP SEPTEMBER. mecobalamin (vitamin B12) 1,000 mcg tablet,chewable 1,000 mcg PO DAILY cholecalciferol (vitamin D3) 50 mcg (2,000 unit) capsule 50 mcg PO BID atorvastatin 20 MG tablet 20 mg PO QODAY Patient Comments: CHOLESTEROL timolol maleate 1 DROP drops 1 drp RIGHT EYE BID Patient Comments: EYE DROPS furosemide 20 mg tablet 20 mg PO DAILY 30 Days Qty: 0 0RF ferrous sulfate [Feosol] 325 mg (65 mg iron) tablet 325 mg PO DAILY ondansetron HCl 4 mg tablet 4 mg PO Q8H PRN (Reason: nausea/vomiting) Rocklatan 0.02-0.005 % drops 1 drp ophthalmic (eye) DAILY carvedilol 12.5 mg tablet 12.5 mg PO BID potassium chloride 10 mEq capsule, extended release 20 meq PO DAILY Rx Instructions: take 2 capsules by mouth once daily Gemtesa 75 mg tablet 75 mg PO DAILY losartan 50 mg tablet 50 mg PO BID Qty: 180 4RF Xarelto 15 mg tablet 15 mg PO DINNER Qty: 30 11RF Rx Instructions: must administer with evening meal metoprolol tartrate 50 mg tablet 100 mg PO BID Qty: 60 6RF Primary Care Provider: Anay Schuler Referrals: Anay Schuler MD [Primary Care Provider] - Print Language: Liberian What to do if you have Problems For any increased pain, shortness of breath, bleeding, nausea or vomiting, chestpain, or any unexpected problems, contact your Primary Care Provider. Call [facility] ([phone]) or report to the closest Emergency Room. Call 911 if necessary. 10/30/241654 <Electronically signed by Jose Mcgraw DO> Cosigner Signature (if applicable): CC: Dr. Anay Schuler MD ~ Signed [facility] Work Phone: 1(743) 754-137105-04-2025 Radiology Diagnostic study [facility]05-02-2025 NoteHNO ID: [id number] Author: DACIA PITT RN Service: ? Author Type: Registered Nurse Type: Progress Notes Filed: 10/28/2024 10:30 Note Text: Transitional Care Management (TCM) Follow-Up Note PCP Update / Actionable Items N/A - No specialty updates needed Patient Source: In-Network Discharge Follow-up outreach: TCM enrolled patient Outreach Summary: Patient is accompanied by her daughter. Reports persistent leg weakness and intermittent ankle swelling. She has not taken Lasix for the past 7 days. Mild cough noted. According to daughter, the patient experiences significant fatigue after walking short distances. Vitals: HR 76, O2 sat 97% on room air B/P 112/82 Patient is currently wearing a heart monitor, scheduled to be returned to [facility] today at 1:15 PM. Plan: Patient is followed by [facility]. Will call their office this morning for further guidance. She has an appointment with Cardiology on 11/04/2024 and was last least 10/24/2024. Discussed worrisome signs and symptoms and indications for f/up medical care and emergency medical care, including symptoms worsening, not improved, or new concerns. Contact: Contact made with patient: Yes Spoke to: Patient and Daughter, Rosaura Validation: Validated the person spoken to is actively involved in the patient's care. The patient was identified by Name and Date of . I'd like to get an update on how you're doing since our last phone call. Is now a good time to talk? Yes Symptoms: Are you feeling about the same, better or worse since leaving the hospital? Worse Patient indicated symptoms are worse. Based on licensed desizing machine operator, the following disposition is advised: NO ACTION REQUIRED. Weekly Outreach: 2nd Outreach Medications: Do you have any questions about taking your medications, including which medications you should be on, or do you need refills on your medications? Yes Discussed the patient's questions and/or concerns. If applicable, the appropriate team/provider updated. Patient Questions / Concerns: Do you have any questions related to your discharge? No Appointment / TCM Follow-Up: Have you had a follow-up visit with your Primary Care Provider or Specialist since you were discharged? Yes Do you need any assistance with scheduling or changing your follow-up appointments? Patient already has an appointment scheduled SDOH: Has Food and Housing been addressed in [employer] D[employer] in the past 3 months? Yes EDUCATION--: Patient and family educated on issues/questions related to reason for admission, transition of care topics, and follow-up needed upon discharge. Heart Failure Education Provided Weight monitoring and knowing your dry weight Fluid restrictions Heart failure medications and importance of compliance Symptom management related to heart failure When to call your provider Utilization Education - Where to go for Care Where to Go for Care Dacia Pitt RN October 28, 2024 10:17 [facility]05-02-2025 History of Present illness Narrative* Dacia Pitt RN - 10/28/2024 10:09 AM EDT Transitional Care Management (TCM) Follow-Up Note PCP Update / Actionable Items N/A - No specialty updates needed Patient Source: In-Network Discharge Follow-up outreach: TCM enrolled patient Outreach Summary: Patient is accompanied by her daughter. Reports persistent leg weakness and intermittent ankle swelling. She has not taken Lasix for the past 7 days. Mild cough noted. According to daughter, the patient experiences significant fatigue after walking short distances. Vitals: HR 76, O2 sat 97% on room air B/P 112/82 Patient is currently wearing a heart monitor, scheduled to be returned to [facility] today at1:15 PM. Plan: Patient is followed by [facility]. Will call their office this morning for further guidance. She has an appointment with Cardiology on 11/04/2024 and was last least 10/24/2024. Discussed worrisome signs and symptoms and indications for f/up medical care and emergency medical care, including symptoms worsening, not improved, or new concerns. Contact: Contact made with patient: Yes Spoke to: Patient and Daughter, Rosaura Validation: Validated the person spoken to is actively involved in the patient's care. The patient was identified by Name and Date of . I'd like to get an update on how you're doing since our last phone call. Is now a good time to talk? Yes Symptoms: Are you feeling about the same, better or worse since leaving the hospital? Worse Patient indicated symptoms are worse. Based on licensed desizing machine operator, the following disposition isadvised: NO ACTION REQUIRED. Weekly Outreach: 2nd Outreach Medications: Do you have any questions about taking your medications, including which medications you should be on, or do you need refills on your medications? Yes Discussed the patient's questions and/or concerns. If applicable, the appropriate team/provider updated. Patient Questions / Concerns: Do you have any questions related to your discharge? No Appointment / TCM Follow-Up: Have you had a follow-up visit with your Primary Care Provider or Specialist since you were discharged? Yes Do you need any assistance with scheduling or changing your follow-up appointments? Patient alreadyhas an appointment scheduled SDOH: Has Food and Housing been addressed in [employer] in the past 3 months? Yes EDUCATION--: Patient and family educated on issues/questions related to reason for admission, transition of care topics, and follow-up needed upon discharge. Heart Failure Education Provided Weight monitoring and knowing your dry weight Fluid restrictions Heart failure medications and importance of compliance Symptom management related to heart failure When to call your provider Utilization Education - Where to go for Care Where to Go for Care Dacia Pitt, JUMA October 28, 2024 10:17 AM [facility] NotePatient Outreach ([facility]) REINIER ELIZABETH ([id number]) 1935 F NFR Date Time Provider Department 10/28/24 DACIA PITT During your visit today, we recorded the following information about you: Dacia Pitt, RN 10/28/2024 10:30 AM Signed Transitional Care Management (TCM) Follow-Up Note PCP Update / Actionable Items N/A - No specialty updates needed Patient Source: In-Network Discharge Follow-up outreach: TCM enrolled patient Outreach Summary: Patient is accompanied by her daughter. Reports persistent leg weakness and intermittent ankle swelling. She has not taken Lasix for the past 7 days. Mild cough noted. According to daughter, the patient experiences significant fatigue after walking short distances. Vitals: HR 76, O2 sat 97% on room air B/P 112/82 Patient is currently wearing a heart monitor, scheduled to be returned to [facility] today at 1:15 PM. Plan: Patient is followed by [facility]. Will call their office this morning for further guidance. She has an appointment with Cardiology on 11/04/2024 and was last least 10/24/2024. Discussed worrisome signs and symptoms and indications for f/up medical care and emergency medical care, including symptoms worsening, not improved, or new concerns. Contact: Contact made with patient: Yes Spoke to: Patient and DaughterRosaura Validation: Validated the person spoken to is actively involved in the patient's care. The patient was identified by Name and Date of . I'd like to get an update on how you're doing since our last phone call. Is now a good time to talk? Yes Symptoms: Are you feeling about the same, better or worse since leaving the hospital? Worse Patient indicated symptoms are worse. Based on licensed desizing machine operator, the following disposition is advised: NO ACTION REQUIRED. Weekly Outreach: 2nd Outreach Medications: Do you have any questions about taking your medications, including which medications you should be on, or do you need refills on your medications? Yes Discussed the patient's questions and/or concerns. If applicable, the appropriate team/provider updated. Patient Questions / Concerns: Do you have any questions related to your discharge? No Appointment / TCM Follow-Up: Have you had a follow-up visit with your Primary Care Provider or Specialist since you were discharged? Yes Do you need any assistance with scheduling or changing your follow-up appointments? Patient already has an appointment scheduled SDOH: Has Food and Housing been addressed in [employer] in the past 3 months? Yes EDUCATION--: Patient and family educated on issues/questions related to reason for admission, transition of care topics, and follow-up needed upon discharge. Heart Failure Education Provided Weight monitoring and knowing your dry weight Fluid restrictions Heart failure medications and importance of compliance Symptom management related to heart failure When to call your provider Utilization Education - Where to go for Care Where to Go for Care Dacia Pitt RN October 28, 2024 10:17 AM Allergies As of Date: 10/28/2024 Noted Allergy Reaction MACROBID (NITROFURANTOIN MONOHYD/*10/08/2024 5 - Intolerance Comments: N/V, shakey, diarrhea AMANTADINE 05/09/2005 2 - Rash CAPOTEN (CAPTOPRIL) 05/09/2005 2 - Rash CEPHALEXIN 05/09/2005 2 - Rash ERYTHROMYCIN 05/09/2005 2 - Rash HCTZ (THIAZIDES) 03/26/2015 14 - Other: See Comments Comments: leg cramps IVP DYE (IODINE) 05/12/2005 2 - Rash NORVASC (AMLODIPINE BESYLATE) 08/27/2017 7 - Swelling Date Reviewed: 10/21/2024 Reviewed by: Erika Kwan APRN.BILLING AND ACCOUNTING STAFF ASSISTANT - Fully Assessed Prescriptions as of 10/28/2024 - ondansetron (ZOFRAN) 4 mg tablet Take 1 tablet by mouth every 8 hours as needed for nausea/vomiting. - losartan (COZAAR) 50 mg tablet Take 1 tablet by mouth two times a day. - atorvastatin (LIPITOR) 20 mg tablet Take 1 tablet by mouth every 48 hours. - levothyroxine (LEVOXYL) 25 mcg tablet Take 1 tablet by mouth once daily. Take on empty stomach. For Thyroid - omeprazole (PRILOSEC) 40 mg capsule Take 1 capsule by mouth daily before breakfast. 1/2 hr before meal. - cyanocobalamin, vitamin B-12, (VITAMIN B12 ORAL) Take by mouth once daily. - denosumab (PROLIA SUBCUTANEOUS) Inject subcutaneously once every 6 months. - vibegron (GEMTESA) 75 mg tablet Take 1 tablet by mouth once daily. - hydrOXYzine HCl (ATARAX) 25 mg tablet Take 1 tablet by mouth every 4 hours as needed for itching/rash. - furosemide (LASIX) 20 mg tablet Take 1 tablet by mouth every other day. - ferrous sulfate 325 mg (65 mg iron) tablet Take 1 tablet by mouth once daily. - hydrALAZINE (APRESOLINE) 10 mg tablet Take 1 tablet by mouth four times daily. - carvedilol (COREG) 12.5 mg tablet Take 12.5 mg by mouth two times a day with meals. - po (more content not included)...[facility]04-27-2025 NoteHNO ID: [id number] Author: ROSALBA IRBY RN Service: ? Author Type: Registered Nurse Type: Progress Notes Filed: 10/23/2024 09:05 Note Text: Transitional Care Management (TCM) Escalation Outreach / Follow-up PCP Update / Actionable Items N/A - No specialty updates needed Patient Source: Yeh-kf-Veoxpuj (OON) Discharge Outreach Summary: message left for patient x2 Patient discharged from N/A Discharge date: 10/13/24 Admitted for: Proxysmal A fib CHF, CKD Readmission Risk: N/A Value-Based Contract: [employer] Contact made with patient: No No answer. Message left x2 days. Outreach Outcome: Enrolled in TCM: Continue 30-day TCM Outreach Care Management Partners Utilized: N/A Rosalba Irby RN October 23, 2024 9:04 [facility]04-27-2025 NotePatient Outreach ([facility]) REINIER ELIZABETH ([id number]) 1935 F NFR Date Time Provider Department 10/23/24 ROSALBA IRBY During your visit today, we recorded the following information about you: Rosalba Irby RN 10/23/2024 9:05 AM Signed Transitional Care Management (TCM) Escalation Outreach / Follow-up PCP Update / Actionable Items N/A - No specialty updates needed Patient Source: [id number] (OON) Discharge Outreach Summary: message left for patient x2 Patient discharged from N/A Discharge date: 10/13/24 Admitted for: Proxysmal A fib CHF, CKD Readmission Risk: N/A Value-Based Contract: [employer] MELISSA Contact made with patient: No No answer. Message left x2 days. Outreach Outcome: Enrolled in TCM: Continue 30-day TCM Outreach Care Management Partners Utilized: N/A Rosalba Irby RN October 23, 2024 9:04 AM Allergies As of Date: 10/23/2024 Noted Allergy Reaction MACROBID (NITROFURANTOIN MONOHYD/*10/08/2024 5 - Intolerance Comments: N/Anjelica, masonkey, diarrhea AMANTADINE 05/09/2005 2 - Rash CAPOTEN (CAPTOPRIL) 05/09/2005 2 - Rash CEPHALEXIN 05/09/2005 2 - Rash ERYTHROMYCIN 05/09/2005 2 - Rash HCTZ (THIAZIDES) 03/26/2015 14 - Other: See Comments Comments: leg cramps IVP DYE (IODINE) 05/12/2005 2 - Rash NORVASC (AMLODIPINE BESYLATE) 08/27/2017 7 - Swelling Date Reviewed: 10/21/2024 Reviewed by: Erika Kwan APRN.BILLING AND ACCOUNTING STAFF ASSISTANT - Fully Assessed Prescriptions as of 10/23/2024 - ondansetron (ZOFRAN) 4 mg tablet Take 1 tablet by mouth every 8 hours as needed for nausea/vomiting. - losartan (COZAAR) 50 mg tablet Take 1 tablet by mouth two times a day. - atorvastatin (LIPITOR) 20 mg tablet Take 1 tablet by mouth every 48 hours. - levothyroxine (LEVOXYL) 25 mcg tablet Take 1 tablet by mouth once daily. Take on empty stomach. For Thyroid - omeprazole (PRILOSEC) 40 mg capsule Take 1 capsule by mouth daily before breakfast. 1/2 hr before meal. - cyanocobalamin, vitamin B-12, (VITAMIN B12 ORAL) Take by mouth once daily. - denosumab (PROLIA SUBCUTANEOUS) Inject subcutaneously once every 6 months. - vibegron (GEMTESA) 75 mg tablet Take 1 tablet by mouth once daily. - hydrOXYzine HCl (ATARAX) 25 mg tablet Take 1 tablet by mouth every 4 hours as needed for itching/rash. - furosemide (LASIX) 20 mg tablet Take 1 tablet by mouth every other day. - ferrous sulfate 325 mg (65 mg iron) tablet Take 1 tablet by mouth once daily. - hydrALAZINE (APRESOLINE) 10 mg tablet Take 1 tablet by mouth four times daily. - carvedilol (COREG) 12.5 mg tablet Take 12.5 mg by mouth two times a day with meals. - potassium chloride (K-TAB) 10 mEq tablet Take 1 tablet by mouth twice daily. - Spirometers and Accessories magdalena Use 3 times a day, each time blow into it for 10 reps - XARELTO 15 mg tablet Take 15 mg by mouth daily with dinner. - brimonidine (ALPHAGAN P) 0.15 % ophthalmic solution Use 1 Drop in the right eye twice daily. - timolol maleate (TIMOPTIC) 0.5 % ophthalmic solution Use 1 Drop in the right eye twice daily. - >Zippered Compression Knee High 30-40 mm custom CUSTOM MEASURE FOR KNEE HIGH ANGELO COMPRESSION STOCKINGS, 30-40 MM, WITH ZIPPERS PLEASE. IF UNABLE, PLEASE REFER TO [facility] AT [facility]. DX: EDEMA - latanoprost (XALATAN) 0.005 % ophthalmic solution 1 Drop daily at bedtime. - TRAVATAN Z 0.004 % Drop daily at bedtime. - Cholecalciferol, Vitamin D3, 2,000 unit ORAL Cap Take one(1) tablet two(2) times daily. 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 Urgency of urination [R39.15] 02/20/2009 06/14/2020 Urge incontinence [N39.41] 02/20/2009 08/06/2016 Female stress incontinence [N39.3] 02/20/2009 08/06/2016 Nocturia [R35.1] 02/20/2009 08/06/2016 Symptomatic menopausal or female climacteric st*02/20/2009 08/06/2016 Postmenopausal atrophic vaginitis [N95.2] 02/20/2009 06/14/2020 Disorder of bone and cartilage, unspecified [M8*02/20/2009 03/24/2012 Osteoporosis with current pathological fracture*06/10/2010 Vitamin D deficiency [E55.9] 06/13/2010 Incisional hernia [K43.2] 12/14/2012 08/06/2016 Mixed hyperlipidemia [E78.2] 08/06/2016 Pedal edema [R60.0] 12/04/2016 Pulmonary hypertension (HCC) [I27.20] 05/07/2017 Vulvar intraepithelial neoplasia III (LARY III) *06/14/2020 Stage 3 chronic kidney disease (HCC) [N18.30] 06/11/2021 Hypertensive kidney disease with stage 3 chroni*12/06/2021 Permanent atrial fibrillation (HCC) [I48.21] 04/28/2022 Gastroint (more content not included)...[facility]04-25-2025 NoteHNO ID: [id number] Author: ERIKA KWAN APRN.BILLING AND ACCOUNTING STAFF ASSISTANT Service: ? Author Type: Nurse Practitioner Type: Progress Notes Filed: 10/21/2024 14:02 Note Text: Virtualist [facility] Note I have communicated my name and active licensure. The patient's identity and physical location were verified at the time of this visit. Either the patient or their legal account service representative has been informed of the risks and benefits of -- and alternatives to -- treatment through a remote evaluation and consents to proceed with the evaluation remotely. Subjective/Objective: Discharged form [facility] 10 days ago after being admitted and tx for HR in 130 Hx AFib Spoke with daughter and patient They are both checking BP and HT frequently t/o the day and noticing every fluctuation Yesterday BP and HR WNL This AM patient had normal BP so took Hydralazine, 45 minutes later checked BP and SBP in 80/90s HR was in 130s, hadn't taken the rest of the Med-s Cozaar and Coreg After talking about parameters for medications she took her medications Patient has been feeling nauseated and fatigue for the past 1 week Is on Lasix 14 days after discharge, today is day 10 Daughter has not given Lasix today, worried about patient being dehydrated, she is eating and drinking Called back later to check on patient They have not heard back from Interior Design Professional HR continues to spend more time in the 120/130s Will come down to 80/90s at times PAtient also hasn't had a BP in a few days and normally goes every day Denies fever, SOB, CP, edema, abd pain, V/D Past medical history, past surgical history, family history and social history reviewed and updated as indicated in EMR. REVIEW OF SYSTEMS: Review of Systems VITAL SIGNS: (if available) There were no vitals taken for this visit. Physical Exam (if video visit was performed) Physical Exam Triage source: Transitional Care Management (TCM): Disposition: Patient instructed to go to the ED Assessment/Plan: ASSESSMENT/PLAN: 1. Tachycardia - ICD9: 785.0, ICD10: R00.0 (primary diagnosis) 2. Permanent atrial fibrillation (HCC) - ICD9: 427.31, ICD10: I48.21 -Dicussed parameters for BP and HR medications, red flag symptoms and taking VS with medication administration instead of after unless having sx -Recommended patient reach back out to Cardiology and if hasn't heard back by later after noon and HR continues to spend more time in the 120/130s to return to ED A total of 30 minutes was spent providing medical care using telemedicine. Mode of contact: Audio Only Visit Signed in as Primary Virtualist, Secondary Virtualist, or [facility] Telehealth provider: Primary SIGNATURE: Erika Washington APRN.CNP PATIENT NAME: Reinier Elizabeth DATE: October 21, 2024 [facility]04-25-2025 NoteHNO ID: [id number] Author: DACIA PITT RN Service: ? Author Type: Registered Nurse Type: Progress Notes Filed: 10/21/2024 10:44 Note Text: Called the heart group 20min B/P is 93/81 HR 122 AND 89/74 HR 127 Nausea and fatigue x 1 week Patient drinks 3-4 bottles of water a day Ankles are getting skinny Patient is on lasix for two weeks since hospital stay. Daughter would like to stop lasix. Transitional Care Management (TCM) Follow-Up Note PCP Update / Actionable Items Daughter called the [employer] approximately 20 minutes ago. Reported BPs: 93/81 with HR 122, and 89/74 with HR 127 at time of call. During the call, HR briefly dropped into the 60s, then returned to the 120s. Patient has had ongoing nausea and fatigue for the past week and was seen by ENVIRONMENTAL ISSUES INSTRUCTOR Older on 09/16/24. Daughter is concerned about continued use of blood pressure medication given the heart rate fluctuations and persistent symptoms. She would like to discuss stopping Lasix. Virtualist Name of Virtualist: Erika Washington NP Time paged: 10:39am Preferred contact number: [phone] Patient escalation symptom(s)/nursing assessment: Hypotension and Afib Patient Source: Hbo-vi-Phxmuvb (OON) Discharge Outreach Summary: Daughter called the [employer] approximately 20 minutes ago. Reported BPs: 93/81 with HR 122, and 89/74 with HR 127 at time of call. During the call, HR briefly dropped into the 60s, then returned to the 120s. Patient has had ongoing nausea and fatigue for the past week and was seen by ENVIRONMENTAL ISSUES INSTRUCTOR Older on 09/16/24. She is eating well and drinking 3-4 bottles of water daily. Daughter notes patient?s ankles appear ?skinny? and she has been on Lasix for two weeks following her hospital stay. Daughter is concerned about continued use of blood pressure medication given the heart rate fluctuations and persistent symptoms. She would like to discuss stopping Lasix. Discussed worrisome signs and symptoms and indications for f/up medical care and emergency medical care, including symptoms worsening, not improved, or new concerns. Contact: Contact made with patient: Yes Spoke to: Patient and DaughterVerona Validation: Validated the person spoken to is actively involved in the patient's care. The patient was identified by Name and Date of . I'd like to get an update on how you're doing since our last phone call. Is now a good time to talk? Yes Symptoms: Are you feeling about the same, better or worse since leaving the hospital? Worse Patient indicated [place] [phone] and indicate 'TCM patient', MRN, Patient Name, Patient Concern, and patient's preferred method of contact (telephone, [employer], [employer]), your name, your contact number. Informed patient that you recommend further assessment from a provider to review symptoms. I have sent a page for the provider to contact you today. If you haven't heard from that provider and still have concerns, please contact you PCP's office right away. Indicated TCM patient and symptoms in the Vituralist section and sent alpha page to Virtualist to to contact the patient. Route chart to Virtualist carrying the pager. Targets addressed / completed during outreach: Prevent readmission for 30 days Outreach Outcome: Continue TCM Outreach for remainder of 30 days Care Management partners utilized: Demario Pitt RN October 21, 2024 10:43 [facility]04-25-2025 NotePatient Outreach ([facility]) REINIER ELIZABETH ([id number]) 1935 F NFR Date Time Provider Department 10/21/24 DACIA PITT During your visit today, we recorded the following information about you: Dacia Pitt RN 10/21/2024 10:44 AM Signed Called the heart group 20min B/P is 93/81 HR 122 AND 89/74 HR 127 Nausea and fatigue x 1 week Patient drinks 3-4 bottles of water a day Ankles are getting skinny Patient is on lasix for two weeks since hospital stay. Daughter would like to stop lasix. Transitional Care Management (TCM) Follow-Up Note PCP Update / Actionable Items Daughter called the [facility] approximately 20 minutes ago. Reported BPs: 93/81 with HR 122, and 89/74 with HR 127 at time of call. During the call, HR briefly dropped into the 60s, then returned to the 120s. Patient has had ongoing nausea and fatigue for the past week and was seen by ENVIRONMENTAL ISSUES INSTRUCTOR Older on 09/16/24. Daughter is concerned about continued use of blood pressure medication given the heart rate fluctuations and persistent symptoms. She would like to discuss stopping Lasix. Virtualist Name of Virtualist: Erika Washington NP Time paged: 10:39am Preferred contact number: [phone] Patient escalation symptom(s)/nursing assessment: Hypotension and Afib Patient Source: Urs-bb-Fwidmyv (OON) Discharge Outreach Summary: Daughter called the [facility] approximately 20 minutes ago. Reported BPs: 93/81 with HR 122, and 89/74 with HR 127 at time of call. During the call, HR briefly dropped into the 60s, then returned to the 120s. Patient has had ongoing nausea and fatigue for the past week and was seen by ENVIRONMENTAL ISSUES INSTRUCTOR Older on 09/16/24. She is eating well and drinking 3-4 bottles of water daily. Daughter notes patient?s ankles appear ?skinny? and she has been on Lasix for two weeks following her hospital stay. Daughter is concerned about continued use of blood pressure medication given the heart rate fluctuations and persistent symptoms. She would like to discuss stopping Lasix. Discussed worrisome signs and symptoms and indications for f/up medical care and emergency medical care, including symptoms worsening, not improved, or new concerns. Contact: Contact made with patient: Yes Spoke to: Patient and DaughterVerona Validation: Validated the person spoken to is actively involved in the patient's care. The patient was identified by Name and Date of . I'd like to get an update on how you're doing since our last phone call. Is now a good time to talk? Yes Symptoms: Are you feeling about the same, better or worse since leaving the hospital? Worse Patient indicated symptoms are worse -Page Virtualist at and indicate 'TCM patient', MRN, Patient Name, Patient Concern, and patient's preferred method of contact (telephone, [employer], [employer]), your name, your contact number. Informed patient that you recommend further assessment from a provider to review symptoms. I have sent a page for the provider to contact you today. If you haven't heard from that provider and still have concerns, please contact you PCP's office right away. Indicated TCM patient and symptoms in the Vituralist section and sent alpha page to Virtualist to to contact the patient. Route chart to Virtualist carrying the pager. Targets addressed / completed during outreach: Prevent readmission for 30 days Outreach Outcome: Continue TCM Outreach for remainder of 30 days Care Management partners utilized: Virtualist Dacia Pitt RN October 21, 2024 10:43 AM Allergies As of Date: 10/21/2024 Noted Allergy Reaction MACROBID (NITROFURANTOIN MONOHYD/*10/08/2024 5 - Intolerance Comments: N/V, shakey, diarrhea AMANTADINE 05/09/2005 2 - Rash CAPOTEN (CAPTOPRIL) 05/09/2005 2 - Rash CEPHALEXIN 05/09/2005 2 - Rash ERYTHROMYCIN 05/09/2005 2 - Rash HCTZ (THIAZIDES) 03/26/2015 14 - Other: See Comments Comments: leg cramps IVP DYE (IODINE) 05/12/2005 2 - Rash NORVASC (AMLODIPINE BESYLATE) 08/27/2017 7 - Swelling Date Reviewed: 10/17/2024 Reviewed by: Haydee Mccauley MA - Fully Assessed Prescriptions as of 10/21/2024 - ondansetron (ZOFRAN) 4 mg tablet Take 1 tablet by mouth every 8 hours as needed for nausea/vomiting. - losartan (COZAAR) 50 mg tablet Take 1 tablet by mouth two times a day. - atorvastatin (LIPITOR) 20 mg tablet Take 1 tablet by mouth every 48 hours. - levothyroxine (LEVOXYL) 25 mcg tablet Take 1 tablet by mouth once daily. Take on empty stomach. For Thyroid - omeprazole (PRILOSEC) 40 mg capsule Take 1 capsule by mouth daily before breakfast. 1/2 hr before meal. - cyanocobalamin, vitamin B-12, (VITAMIN B12 ORAL) Take by mouth once daily. - denosumab (PROLIA SUBCUTANEOUS) Inject subcutaneously once every 6 months. - vibegron (GEMTESA) 75 mg tablet Take 1 tablet by (more content not included)...[facility] 10-17-2024 Instructions* Patient Instructions* Silvio Drake APRN.BILLING AND ACCOUNTING STAFF ASSISTANT - 10/17/2024 2:25 PM EDT Your cardiology follow-up is scheduled for November 04. Continue taking your prescribed medications (Lasix, levothyroxine, and any current Coreg) as directed at discharge. Take your vitamin D with a large meal (preferably dinner) to improve absorption and help prevent nausea. Monitor your blood pressure at home and keep a record of your readings; notify us if you notice significant changes. Use your migdalia chew as needed for mild nausea, and try to eat a more substantial meal if you feel nauseated. Watch the bruise on your eye--if it becomes more painful, larger, warm, or if you experience any vision changes, call us immediately. Be alert for any signs of a urinary tract infection (such as pain or burning during urination, darkurine, or worsening nausea) and contact us if these occur. documented in this encounter[facility]04-21-[facility]25 NoteHNO ID: [id number] Author: SILVIO DRAKE APRN.CNP Service: ? Author Type: Nurse Practitioner Type: Progress Notes Filed: 10/17/2024 15:13 Note Text: CC: Patient presents with: Recheck: Hosp follow up Afib HPI Reinier Elizabeth is a 88 year old female who presents today for follow up on hospitalization for a-fib. Was admitted to to [facility] recently for a-fib with RVR and was discharged on 10/13. Recording using [employer] software for draft documentation of the visit was discussed with the patient/authorized account service representative; all questions welcomed and answered. Patient/authorized account service representative agreed to proceed A-fib with RVR: - Recent ER visit and hospital admission with HR of 136 bpm. - Experienced a burning sensation in the chest during the night, which subsided around 04:00. - Noticed tachycardia upon waking and sought medical attention. - Currently under the care of [facility]; next appointment scheduled for November 04. - Discharged on 10/13; medication changes included initiation of Cardizem IV, followed by amiodarone, which was discontinued. Current medications include Coreg and Lasix switched to daily versus every other day. - Monitoring HR and BP at home; highest recorded BP since discharge is 142/94 mmHg with HR of 79 bpm. - Denies current dyspnea, palpitations, or fever. Cough is resolving. Nausea: - Onset of nausea this morning, accompanied by generalized malaise and diaphoresis. - Suspects nausea may be related to taking vitamin D on an empty stomach last night. - Consumed a small meal (egg and diced potatoes) today. - Took a migdalia chew for nausea with partial relief. - Denies emesis, changes in urination, or energy levels. Eye Bruise: - Noticed a bruise on the eye 3 days ago, which has worsened over the last 2 days. - Denies trauma, vision changes, or pain. - Currently on Xarelto. 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 Dr Gao REPAIR FIRST ABDOMINAL WALL HERNIA 12/14/2012 2cm defect - Parietex Composite ventral patch 6cm STRESS TEST 04/14/2017 PAWAN 02/04/2018 ALLERGIES Macrobid [Nitrofurantoin Monohyd/M-Cryst], Amantadine, Capoten [Captopril], Cephalexin, Erythromycin, Hctz [Thiazides], Ivp Dye [Iodine], and Norvasc [Amlodipine Besylate] MEDICATIONS ondansetron (ZOFRAN) 4 mg tablet Take 1 tablet by mouth every 8 hours as needed for nausea/vomiting. losartan (COZAAR) 50 mg tablet Take 1 tablet by mouth two times a day. atorvastatin (LIPITOR) 20 mg tablet Take 1 tablet by mouth every 48 hours. levothyroxine (LEVOXYL) 25 mcg tablet Take 1 tablet by mouth once daily. Take on empty stomach. For Thyroid omeprazole (PRILOSEC) 40 mg capsule Take 1 capsule by mouth daily before breakfast. 1/2 hr before meal. cyanocobalamin, vitamin B-12, (VITAMIN B12 ORAL) Take by mouth once daily. denosumab (PROLIA SUBCUTANEOUS) Inject subcutaneously once every 6 months. vibegron (GEMTESA) 75 mg tablet Take 1 tablet by mouth once daily. hydrOXYzine HCl (ATARAX) 25 mg tablet Take 1 tablet by mouth every 4 hours as needed for itching/rash. (Patient not taking: Reported on 08/02/2024) furosemide (LASIX) 20 mg tablet Take 1 tablet by mouth (more content not included)...[facility]04-21-2025 History of Present illness Narrative* Silvio Drake APRN.BILLING AND ACCOUNTING STAFF ASSISTANT - 10/17/2024 2:24 PM EDT CC: Patient presents with: Recheck: Hosp follow up Afib HPI Rienier Elizabeth is a 88 year old female who presents today for follow up on hospitalization for a-fib. Was admitted to to [facility] recently for a- fib with RVR and was discharged on 10/13. Recording using [employer] software for draft documentation of the visit was discussed with the patient/authorized account service representative; all questions welcomed and answered. Patient/authorized account service representative agreed to proceed A-fib with RVR: - Recent ER visit and hospital admission with HR of 136 bpm. - Experienced a burning sensation in the chest during the night, which subsided around 04:00. - Noticed tachycardia upon waking and sought medical attention. - Currently under the care of [facility]; next appointment scheduled for November 04. - Discharged on 10/13; medication changes included initiation of Cardizem IV, followed by amiodarone, which was discontinued. Current medications include Coreg and Lasix switched to daily versus everyother day. - Monitoring HR and BP at home; highest recorded BP since discharge is 142/94 mmHg with HR of 79 bpm. - Denies current dyspnea, palpitations, or fever. Cough is resolving. Nausea: - Onset of nausea this morning, accompanied by generalized malaise and diaphoresis. - Suspects nausea may be related to taking vitamin D on an empty stomach last night. - Consumed a small meal (egg and diced potatoes) today. - Took a migdalia chew for nausea with partial relief. - Denies emesis, changes in urination, or energy levels. Eye Bruise: - Noticed a bruise on the eye 3 days ago, which has worsened over the last 2 days. - Denies trauma, vision changes, or pain. - Currently on Xarelto. REVIEW OF SYSTEMS See HPI PAST MEDICAL HISTORY Diagnosis Date Acquired keratoderma Lichen sclerosis Anemia Anticoagulant long-term use indication: stroke prevention atrial fibrillation At risk for bleeding associated with anticoagulants HAS-BLED score = 2 (age, bleeding) At risk for stroke [id number] = 4 (HTN, age2, female gender) Benign [...] May. right eye Jun. left eye - [facility] . Dr Gao REPAIR FIRST ABDOMINAL WALL HERNIA 12/14/2012 2cm defect - Parietex Composite ventral patch 6cm STRESS TEST 04/14/2017 PAWAN 02/04/2018 ALLERGIES Macrobid [Nitrofurantoin Monohyd/M-Cryst], Amantadine, Capoten [Captopril], Cephalexin, Erythromycin, Hctz [Thiazides], Ivp Dye [Iodine], and Norvasc [Amlodipine Besylate] MEDICATIONS ondansetron (ZOFRAN) 4 mg tablet Take 1 tablet by mouth every 8 hours as needed for nausea/vomiting. losartan (COZAAR) 50 mg tablet Take 1 tablet by mouth two times a day. atorvastatin (LIPITOR) 20 mg tablet Take 1 tablet by mouth every 48 hours. levothyroxine (LEVOXYL) 25 mcg tablet Take 1 tablet by mouth once daily. Take on empty stomach. ForThyroid omeprazole (PRILOSEC) 40 mg capsule Take 1 capsule by mouth daily before breakfast. 1/2 hr before meal. cyanocobalamin, vitamin B-12, (VITAMIN B12 ORAL) Take by mouth once daily. denosumab (PROLIA SUBCUTANEOUS) Inject subcutaneously once every 6 months. vibegron (GEMTESA) 75 mg tablet Take 1 tablet by mouth once daily. hydrOXYzine HCl (ATARAX) 25 mg tablet Take 1 tablet by mouth every 4 hours as needed for itching/rash. (Patient not taking: Reported on 08/02/2024) furosemide (LASIX) 20 mg tablet Take 1 tablet by mouth every other day. (Patient taking differently: Take 20 mg by mouth as needed.) ferrous sulfate 325 mg (65 mg iron) tablet Take 1 tablet by mouth once daily. hydrALAZINE (APRESOLINE) 10 mg tablet Take 1 tablet by mouth four times daily. carvedilol (COREG) 12.5 mg tablet Take 12.5 mg by mouth two times a day with meals. potassium chloride (K-TAB) 10 mEq tablet Take [...] IF UNABLE, PLEASE REFER TO [facility]. DX: EDEMA latanoprost (XALATAN) 0.005 % ophthalmic solution 1 Drop daily at bedtime. TRAVATAN Z 0.004 % Drop daily at bedtime. Cholecalciferol, Vitamin D3, 2,000 unit ORAL Cap Take one(1) tablet two(2) times daily. FAMILY HISTORY Problem Relation Age of Onset Heart Mother Hypertension Mother Ischemic Heart Disease Mother Hypertension Father Ischemic Heart Disease Father Heart Sister By-pass, Triple Ischemic Heart Disease Sister Heart Brother Stent Ischemic Heart Disease Brother Glaucoma Brother other (Renal Stones) Daughter Heart Maternal Aunt Social History Tobacco Use Smoking status: Former Current packs/day: 0.00 Types: Cigarettes Start date: 07/06/1971 Quit date: 07/06/1976 Years since quittin.3 Smokeless tobacco: Never Tobacco comments: Quit 1969's 4-5 cig per day Vaping Use Vaping status: Never Used Substance Use Topics Alcohol use: No Drug use: No PHYSICAL EXAM BP 152/84 Pulse 62 Temp 36 C (96.8 F) (Temporal) Resp 16 Wt 61.7 kg (136 lb) SpO2 100% BMI 24.87 kg/m General Appearance: well appearing, in no acute distress, alert Eyes: conjunctiva pink and moist, no icterus, sclera white, non-injected, left lower outer lid withbruising purplish in color. No tenderness, edema, erythema, red streaking or increased warmth. Lungs: Lungs clear to auscultation. No wheezing, rhonchi, rales. Heart: apical irregular without murmur, gallop, or rubs. No ectopy Abdomen:Normal abdominal exam, Abdomen soft, non-tender. Bowel sounds normal. No masses, organomegaly Health maintenance reviewed with patient: Depression Screening Never done Anxiety Screening Never done Shingrix Vaccine(1 of 2) Never done RSV Vaccine(1 - 1-dose 75+ series) Never done DTaP,Tdap,Td Vaccine(3 - Td or Tdap) due on 06/07/2023 Influenza Vaccine(1) due on 02/28/2024 Covid-19 Vaccine( - 2023- season) due on 02/28/2024 Advance Directive Discussion due on 06/29/2024 Bone Density Screening due on 01/12/2025 Diabetes Screening due on 09/13/2027 Pneumococcal Vaccine: 50+ Completed DATA REVIEWED: Outside chart from [facility] reviewed. Assessment/Plan 1. Nausea (R11.0) - no vomiting or other GI symptoms - only has been present for a few hours. Will continue to monitor at this time - call if this continues - Onset this morning, possibly related to taking vitamin D on an empty stomach last night. - Recommended taking vitamin D with a large meal to improve absorption and reduce nausea. - Ordered urinalysis to rule out UTI as a potential cause of nausea; results were normal. - Continue using migdalia chews for symptomatic relief. - zofran as ordered 2. Other fatigue (R53.83) - Experiencing decreased energy levels since recent hospitalization. - No changes in urination, dark urine, or difficulty urinating reported. - Monitor energy levels and report any significant changes or if no improvement 3. Ecchymosis of left eye, initial encounter (S05.12XA) - Noticed ecchymosis on the left eye, likely a bruise; no pain, swelling, or vision changes observed. - Advised monitoring for any signs of infection, increased swelling, or pain. - Discussed the possibility of ecchymosis being due to minor trauma or increased bruising tendency from Xarelto. - Educated patient and daughter on signs of infection and when to seek further medical attention. 4. Paroxysmal atrial fibrillation (HCC) (I48.0) - Recent hospitalization for paroxysmal atrial fibrillation with a heart rate of 136 bpm. - Discharged on 10/13 with medication adjustments; currently on Coreg and Lasix. - Heart rate stable at 79 bpm this morning; no shortness of breath or palpitations reported. - Follow-up appointment with [facility] scheduled for November 04. - Continue current medication regimen and monitor heart rate and blood pressure at home. Prescription instructions reviewed with patient as applicable. Potential red flag symptoms discussed with the patient. Reviewed appropriate action plan to take if red flag symptoms occur. Patient agreeable to treatment plan. Silvio Drake APRN.CNP documented in this encounter[facility]04-18-[facility]25 NoteHNO ID: [id number] Author: DACIA PITT RN Service: ? Author Type: Registered Nurse Type: Progress Notes Filed: 10/14/2024 09:34 Note Text: Transition Care Management (TCM) Initial Outreach PCP Update / Actionable Items N/A - No specialty updates needed Patient Source: [facility] ([facility]) Discharge Outreach Summary: Patient is taking lasix every day for two weeks and then PCP will re eval lasix dosage at that time. Patient will monitor her HR and B/P which she had been doing prior to admission to [place]. Patient's daughter lives next door. Patient discharged from N/A Discharge date: 10/13/24 Admitted for: Paroxysmal A fib with CHF CKD Readmission Risk: N/A Value-Based Contract: Adama MELISSA Contact: Contact made with patient: Yes Hi, my name is Dacia Pitt RN and I am calling from the [facility] on behalf of your Primary Care Provider, Anay Schuler MD. I understand you were recently in the hospital, so I am calling to check in with you to ensure you are feeling well now that you are home. May I ask you a few questions related to your hospital stay and well-being? Yes Spoke to: Patient Validation: Validated the person spoken to is actively involved in the patient's care. The patient was identified by Name and Date of . Symptoms: Are you feeling about the same, better or worse since leaving the hospital? Better Medications: Do you have any questions about taking your medications, including which medications you should be on, or do you need refills on your medications? No Medication Review: Partial mediation review completed, per patient preference Discharge Instructions: Your Discharge Instructions / After Visit Summary (AVS) are important in guiding you through the recovery process. Do you have any questions related to your discharge instructions? No Home Care: Were you discharged with home care? No Equipment: Do you have all the necessary equipment and supplies needed at your home? Not applicable Social: Your mental health is as important to us as your physical health. Would you mind answering a few questions on this topic? Yes On the Storyboard review: Food Insecurity, Transportation, Depression, Housing, and Financial Strain: Complete any SDOHs, listed above, if not addressed in the past 3 months. If all SDOHs, listed above, have been addressed within the last 3 months, confirm responses and update any SDOHs that have changed. Action Taken: No needs verbalized. No action required. Follow-Up Appointment: [Appointment / TCM Follow-up within 14 days] I would like to help you schedule a hospital follow-up virtual or telephone visit with your PCP. This is a great way for you to connect with your provider to ensure you have safely transitioned home. If you are agreeable, I will send your request to a fisheries enforcement officer who will contact and assist you with that appointment. This will give you an opportunity to ask any questions or address any concerns you may have with your PCP. Inform the patient that if they have any questions or concerns prior to that appointment, to call their PCP's office right away. Appointment Action: No action required; patient already has appointment scheduled. Education details: Patient and family educated on issues/questions related to reason for admission, transition of care topics, and follow-up needed upon discharge. High Blood Pressure Topics Covered When to call your provider Importance of checking and monitoring your blood pressure at home Medication compliance Dacia Pitt RN October 14, 2024 9:29 [facility]04-18-2025 History of Present illness Narrative* Dacia Pitt RN - 10/14/2024 9:26 AM EDT Transition Care Management (TCM) Initial Outreach PCP Update / Actionable Items N/A - No specialty updates needed Patient Source: [id number] ([facility]) Discharge Outreach Summary: Patient is taking lasix every day for two weeks and then PCP will re eval lasix dosage at that time. Patient will monitor her HR and B/P which she had been doing prior to admission to [place]. Patient's daughter lives next door. Patient discharged from N/A Discharge date: 10/13/24 Admitted for: Paroxysmal A fib with CHF CKD Readmission Risk: N/A Value-Based Contract: Adama MELISSA Contact: Contact made with patient: Yes Hi, my name is Dacia Pitt RN and I am calling from the [facility] on behalf of your Primary Care Provider, Anay Schuler MD. I understand you were recently in the hospital, so I am calling to check in with you to ensure you are feeling well now that you are home. May I ask you a few questions related to your hospital stay and well-being? Yes Spoke to: Patient Validation: Validated the person spoken to is actively involved in the patient's care. The patient was identified by Name and Date of . Symptoms: Are you feeling about the same, better or worse since leaving the hospital? Better Medications: Do you have any questions about taking your medications, including which medications you should be on, or do you need refills on your medications? No Medication Review: Partial mediation review completed, per patient preference Discharge Instructions: Your Discharge Instructions / After Visit Summary (AVS) are important in guiding you through the recovery process. Do you have any questions related to your discharge instructions? No Home Care: Were you discharged with home care? No Equipment: Do you have all the necessary equipment and supplies needed at your home? Not applicable Social: Your mental health is as important to us as your physical health. Would you mind answering a few questions on this topic? Yes On the Storyboard review: Food Insecurity, Transportation, Depression, Housing, and Financial Strain: Complete any SDOHs, listed above, if not addressed in the past 3 months. If all SDOHs, listed above, have been addressed within the last 3 months, confirm responses and update any SDOHs that have changed. Action Taken: No needs verbalized. No action required. Follow-Up Appointment: [Appointment / TCM Follow-up within 14 days] I would like to help you schedule a hospital follow-up virtual or telephone visit with your PCP. This is a great way for you to connect with your provider to ensure you have safely transitioned home.If you are agreeable, I will send your request to a fisheries enforcement officer who will contact and assist you with that appointment. This will give you an opportunity to ask any questions or address any concerns youmay have with your PCP. Inform the patient that if they have any questions or concerns prior to that appointment, to call their PCP's office right away. Appointment Action: No action required; patient already has appointment scheduled. Education details: Patient and family educated on issues/questions related to reason for admission,transition of care topics, and follow-up needed upon discharge. High Blood Pressure Topics Covered When to call your provider Importance of checking and monitoring your blood pressure at home Medication compliance Dacia Pitt RN October 14, 2024 9:29 AM documented in this encounter[facility]04-18-[facility] NotePatient Outreach ([facility]) REINIER ELIZABETH ([id number]) 1935 F NFR Date Time Provider Department 10/14/24 DACIA PITT During your visit today, we recorded the following information about you: Dacia Pitt RN 10/14/2024 9:34 AM Signed Transition Care Management (TCM) Initial Outreach PCP Update / Actionable Items N/A - No specialty updates needed Patient Source: [id number] ([facility]) Discharge Outreach Summary: Patient is taking lasix every day for two weeks and then PCP will re eval lasix dosage at that time. Patient will monitor her HR and B/P which she had been doing prior to admission to [place]. Patient's daughter lives next door. Patient discharged from N/A Discharge date: 10/13/24 Admitted for: Paroxysmal A fib with CHF CKD Readmission Risk: N/A Value-Based Contract: Adama MELISSA Contact: Contact made with patient: Yes Hi, my name is Dacia Pitt RN and I am calling [facility] the [facility] on behalf of your Primary Care Provider, Anay Schuler MD. I understand you were recently in the hospital, so I am calling to check in with you to ensure you are feeling well now that you are home. May I ask you a few questions related to your hospital stay and well-being? Yes Spoke to: Patient Validation: Validated the person spoken to is actively involved in the patient's care. The patient was identified by Name and Date of . Symptoms: Are you feeling about the same, better or worse since leaving the hospital? Better Medications: Do you have any questions about taking your medications, including which medications you should be on, or do you need refills on your medications? No Medication Review: Partial mediation review completed, per patient preference Discharge Instructions: Your Discharge Instructions / After Visit Summary (AVS) are important in guiding you through the recovery process. Do you have any questions related to your discharge instructions? No Home Care: Were you discharged with home care? No Equipment: Do you have all the necessary equipment and supplies needed at your home? Not applicable Social: Your mental health is as important to us as your physical health. Would you mind answering a few questions on this topic? Yes On the Storyboard review: Food Insecurity, Transportation, Depression, Housing, and Financial Strain: Complete any SDOHs, listed above, if not addressed in the past 3 months. If all SDOHs, listed above, have been addressed within the last 3 months, confirm responses and update any SDOHs that have changed. Action Taken: No needs verbalized. No action required. Follow-Up Appointment: [Appointment / TCM Follow-up within 14 days] I would like to help you schedule a hospital follow-up virtual or telephone visit with your PCP. This is a great way for you to connect with your provider to ensure you have safely transitioned home. If you are agreeable, I will send your request to a fisheries enforcement officer who will contact and assist you with that appointment. This will give you an opportunity to ask any questions or address any concerns you may have with your PCP. Inform the patient that if they have any questions or concerns prior to that appointment, to call their PCP's office right away. Appointment Action: No action required; patient already has appointment scheduled. Education details: Patient and family educated on issues/questions related to reason for admission, transition of care topics, and follow-up needed upon discharge. High Blood Pressure Topics Covered When to call your provider Importance of checking and monitoring your blood pressure at home Medication compliance Dacia Pitt RN October 14, 2024 9:29 AM Allergies As of Date: 10/14/2024 Noted Allergy Reaction MACROBID (NITROFURANTOIN MONOHYD/*10/08/2024 5 - Intolerance Comments: N/V, shakey, diarrhea AMANTADINE 05/09/2005 2 - Rash CAPOTEN (CAPTOPRIL) 05/09/2005 2 - Rash CEPHALEXIN 05/09/2005 2 - Rash ERYTHROMYCIN 05/09/2005 2 - Rash HCTZ (THIAZIDES) 03/26/2015 14 - Other: See Comments Comments: leg cramps IVP DYE (IODINE) 05/12/2005 2 - Rash NORVASC (AMLODIPINE BESYLATE) 08/27/2017 7 - Swelling Date Reviewed: 10/08/2024 Reviewed by: Yany Nieto MA - Fully Assessed Prescriptions as of 10/14/2024 - losartan (COZAAR) 50 mg tablet Take 1 tablet by mouth two times a day. - atorvastatin (LIPITOR) 20 mg tablet Take 1 tablet by mouth every 48 hours. - levothyroxine (LEVOXYL) 25 mcg tablet Take 1 tablet by mouth once daily. Take on empty stomach. For Thyroid - omeprazole (PRILOSEC) 40 mg capsule Take 1 capsule by mouth daily before breakfast. 1/2 hr before meal. - cyanocobalamin, vitamin B-12, (VITAMIN B12 ORAL) Take by mouth once daily. - denosumab (PROLIA SUBCUTANEOUS) Inject subcutaneously once every 6 months. - (more content not included)...[facility]04-17-2025 [facility]04-17-2025 Discharge summary [facility] [facility] [address] [place] [id number] Instructions for Home/Discharge Instructions 10/13/24 1034 MR#: [id number] Acct: [id number] Name: REINIER ELIZABETH Rep #:[id number] : 1935 88 From: Nirav ellis MD PCP: Dr. Anay Schuler MD Status:ADM I N Discharge Instructions Diet Discharge Diet: Low fat / Low cholesterol DC O2, CPAP, BIPAP needs Home O2 Discharge instructions: No Dressing / Incision Discharge Activity: Return to Normal Activity Dressing / Incision Call your doctor if you observe: Fever of 101 or Higher, Shortness of breath, Dizziness, Fainting spells, Swelling in the ankles, Chest pain and Increased palpitations (irregular heartbeat) Follow Up Care Test Results: Test results from this visit will be discussed in further detail at your follow- up appointment, if applicable. Discharge Plan Admission Admit Date/Time: 10/11/24 14:08 Attending Provider: Nirav Cain Primary Care Provider: Anay Schuler Consulting Providers: Jake Kingston; Inocencia Long Discharge Orders/Prescriptions Prescriptions: Continued levothyroxine 25 mcg tablet 25 mcg PO DAILY brimonidine 0.15 % drops 1 drp ophthalmic (eye) BID Rx Instructions: right eye omeprazole 40 mg capsule,delayed release(DR/EC) 20 mg PO DAILY Prolia 60 mg/mL syringe 60 mg subcut [id number] Patient Comments: STARTS END UP SEPTEMBER. mecobalamin (vitamin B12) 1,000 mcg tablet,chewable 1,000 mcg PO DAILY cholecalciferol (vitamin D3) 50 mcg (2,000 unit) capsule 50 mcg PO BID latanoprost 1 DROP bottle 1 drp ophthalmic (eye) BID Patient Comments: EYE DROP Rx Instructions: BOTH EYES atorvastatin 20 MG tablet 20 mg PO QODAY Patient Comments: CHOLESTEROL timolol maleate 1 DROP drops 1 drp RIGHT EYE BID Patient Comments: EYE DROPS potassium chloride 10 mEq capsule, extended release 20 meq PO DAILY Rx Instructions: take 2 capsules by mouth once daily Gemtesa 75 mg tablet 75 mg PO DAILY losartan 50 mg tablet 50 mg PO BID Qty: 180 4RF Xarelto 15 mg tablet 15 mg PO DINNER Qty: 30 11RF Rx Instructions: must administer with evening meal carvedilol 12.5 mg tablet 12.5 mg PO BID Qty: 180 3RF Rx Instructions: must administer with a meal/food hydralazine 50 mg tablet 50 mg PO TID Qty: 270 3RF Changed furosemide 20 mg tablet 20 mg PO DAILY 30 Days Qty: 0 0RF Referrals / Follow Up: Anay Schuler MD [Primary Care Provider] - Within 1 Week Faustina Hernandez PA [Med Staff - [facility]] - Within 2 Weeks Disposition Disposition (needs filled in before D/C Order can be placed): Home, Self Care 10/13/24 1038[facility] Brian Cain MD CC: Dr. Inocencia Long MD; Dr. Anay Schuler MD; Dr. Jake Kingston MD ~ Signed [facility]04-17-2025 Progress note Author Jake Kingston [facility] Note Date/Time October 13, 2024 8:2 4am [facility] Medical Records Department [address] [place] [address] Progress Note - Cardiology 10/13/24815 MR#: [id number] Acct: [id number] Name: REINIER ELIZABETH Rep #:[id number] : 1935 88 From: Jake Kingston MD PCP: Dr. Anay Schuler MD Status:ADM I N Location: [place] [address] Subjective Subjective The patient reports that she is doing much better. She is up in the room with minimal assistance. She denies any shortness of breath or dyspnea on exertion with activities in the room. She denies any dizziness. Telemetry shows that her atrial fibrillation ventricular response is well- controlled at 70 to 95 bpm. Blood pressure is stable in the 130/70 range. She is back on her home medical therapy with good rate control and blood pressure management. Objective Data Vital Signs: Vital Signs Temp Pulse Resp BP Pulse Ox O2 Del Method 97.9 F 80 16 149/73 H 98 Room Air 10/13/24 07:58 10/13/24 07:58 10/13/24 07:58 10/13/24 07:58 10/13/24 07:58 10/13/24 07:58 Oxygen Delivery Method Room Air Weight: 145 lb 8.081 oz Body Mass Index (BMI) 26.6 Intake & Output: Intake and Output for Last 24 Hours 10/11/24 10/12/24 10/13/24 23:59 23:59 23:59 Intake Total 1726.83 / 1726.83 0 / 0 Output Total 0 / 0 Balance 1726.83 / 1726.83 0 / 0 Lab / Micro Data Attestation: I reviewed the patient's lab results. 10/13/24 06:18 10/13/24 06:18 Labs: Laboratory Results - last 24 hr 10/12/24 05:34: Sodium 136, Potassium 3.7, Chloride 108, Carbon Dioxide 18.5 L, Anion Gap 10, BUN 27 H, Creatinine 1.63 H, Estim Creat Clear Calc 21.24 L, Est GFR (MDRD) Non-Af 30 L, BUN/Creatinine Ratio 16.6, Glucose 103 H, Calcium 8.4, Total Bilirubin 0.34, AST 19, ALT 13, Alkaline Phosphatase 38, Total Protein 5.9, Albumin 3.4, Globulin 2.6, Albumin/Globulin Ratio 1.3, Triglycerides 85, Cholesterol 146, LDL Cholesterol, Calc 81, VLDL Cholesterol 17, HDL Cholesterol 48, Cholesterol/HDL Ratio 3.02 10/13/24 06:18: WBC 4.7, RBC 3.19 L, Hgb 10.2 L, Hct 31.0 L, MCV 97.2, MCH 32.0,MCHC 32.9, RDW Std Deviation 46.5 H, RDW Coeff of Broderick 13.1, Plt Count 192, MPV 10.2, Immature Gran % (Auto) 0.200, Neut % (Auto) 47.2, Lymph % (Auto) 33.8, Jones % (Auto) 10.0, Eos % (Auto) 7.7 H, Baso % (Auto) 1.1 H, Absolute Neuts (auto) 2.2, Absolute Lymphs (auto) 1.58, Nucleated RBC % 0, Sodium 138, Potassium 4.0, Chloride 111 H, Carbon Dioxide 17.9 L, Anion Gap 9, BUN 24 H, Creatinine 1.43 H, Estim Creat Clear Calc 24.70 L, Est GFR (MDRD) Non-Af 35 L, BUN/Creatinine Ratio 16.6, Glucose 96, Calcium 8.6 Rhythm Strip Rhythm Strip: A-fib Rate: 80 Cardiology Labs/Tests 10/12/24 05:34: Sodium 136, Potassium 3.7, Chloride 108, Carbon Dioxide 18.5 L, Anion Gap 10, BUN 27 H, Creatinine 1.63 H, Est GFR (MDRD) Non-Af 30 L, BUN/Creatinine Ratio 16.6, Glucose 103 H, Calcium 8.4, Total Bilirubin 0.34, Triglycerides 85, Cholesterol 146, VLDL Cholesterol 17, HDL Cholesterol 48, Cholesterol/HDL Ratio 3.02 10/13/24 06:18: WBC 4.7, RBC 3.19 L, Hgb 10.2 L, Hct 31.0 L, MCV 97.2, MCH 32.0,MCHC 32.9, Plt Count 192, MPV 10.2, Immature Gran % (Auto) 0.200, Neut % (Auto) 47.2, Lymph % (Auto) 33.8, Jones % (Auto) 10.0, Eos % (Auto) 7.7 H, Baso % (Auto)1.1 H, Absolute Neuts (auto) 2.2, Nucleated RBC % 0, Sodium 138, Potassium 4.0, Chloride 111 H, Carbon Dioxide 17.9 L, Anion Gap 9, BUN 24 H, Creatinine 1.43 H,Est GFR (MDRD) Non-Af 35 L, BUN/Creatinine Ratio 16.6, Glucose 96, Calcium 8.6 Rhythm: EKG: ECHO: Stress Test: Cardiac Cath: PCI: CT Surgery: Holter monitor: EPS: PPM: CXR: Chest CT Scan: Radiography Diagnostic Testing: Radiology Impression Echocardiogram 10/11/24 17:56 Interpretation Summary Normal LV size. Left ventricular systolic function is normal. The left ventricular ejection fraction is 60 %. Small (<1.0 cm) pericardial effusion. Pulmonary artery systolic pressure is 64 mmHg. Moderate pulmonary hypertension. Ordering Physician: Jake Kingston Referring Physician: Anay Schuler Performed By: Denise Ron, RDCS, RVT Physical Exam Const alert and oriented x3 HEENT normocephalic Eyes EOMs intact bilaterally Neck Neck Narrative: Noted JVD at the clavicle at 90 degrees unchanged during the admission. Chest inspection of chest normal Resp normal respiratory effort Auscultation: crackles bilateral base Cardio Rate: regular rate Rhythm: abnormal rhythm regularly irregular Heart Sounds: S1 normal and S2 normal; Negative for click, gallop or murmur Extremity General Extremity: edema bilateral lower extremity Details: mild Neuro Neuro Narrative: Alert and oriented x 3 Psych mental status grossly normal Assessment & Plan Assessment/Plan (1) Paroxysmal atrial fibrillation: PLAN: Patient's patient's atrial fibrillation did not convert with IV amiodaroneloading and infusion. Her heart rate is now controlled. She is tolerating oralanticoagulation therapy without nuisance bleeding her hemoglobin is actually up to 10.2 today. The patient carries a history of episodic paroxysmal atrial fibrillation. She is asymptomatic at this point in time and I would recommend that we continue with rate control and oral anticoagulation. She should continue on her current carvedilol at 12.5 mg twice daily and her oral anticoagulation. The patient should follow-up in the [facility] office in the next 2 weeks with one of the advanced practitioners. (2) Elevated troponin: PLAN: Patient's troponins were minimally elevated and consistent with her rapid ventricular response when she was admitted. Echocardiogram showed normal LV function with a EF of 60% no evidence of wall motion abnormalities. RV was normal atria were normal in size. She does have 2+ tricuspid regurgitation and moderate pulmonary artery hypertension with PA pressures of 64. Given the patient's lower extremity edema I would recommend that she take her Lasix 20 mg daily for the next 2 weeks and be reevaluated in the [facility] office with a BMP at that visit. She was instructed that should she become lightheaded or dizzy she should hold the Lasix and call the [facility]. (3) Essential hypertension: PLAN: Historically the patient's blood pressure has been difficult to control but it appears to be well-controlled on her current medical regimen in her home environment. She is to continue her same home meds. PLAN: Plan 1. Patient should be discharged to home on her current cardiovascular medical regimen. 2. The patient should take her Lasix 20 mg daily instead of as needed for the next 2 weeks. 3. The patient should follow-up in the [facility] office with one of our advanced practitioners in 2 weeks and have a basic metabolic panel evaluatedat that time. 4. From a cardiovascular standpoint the patient could be discharged to home later today. Charges/Coding Visit Charges Inpatient E&M: 63117 Subs Hosp L2 10/13/24 0824 <Electronically signed by Jake Kingston MD> Cosigner Signature (if applicable): CC: ~ Signed [facility] Work Phone: [phone] Progress note [facility] Medical Records Department [address] [place] [address] Progress Note - Cardiology 10/13/24815 MR#: [id number] Acct: [id number] Name: REINIER ELIZABETH Rep #:[id number] : 1935 88 From: Jake Kingston MD PCP: Dr. Anay Schuler MD Status:ADM I N Location: [place] [address] Subjective Subjective The patient reports that she is doing much better. She is up in the room with minimal assistance. She denies any shortness of breath or dyspnea on exertion with activities in the room. She denies anydizziness. Telemetry shows that her atrial fibrillation ventricular response is well- controlled at 70 to 95 bpm. Blood pressure is stable in the 130/70 range. She is back on her home medical therapy with good rate control and blood pressure management. Objective Data Vital Signs: Vital Signs Temp Pulse Resp BP Pulse Ox O2 Del Method 97.9 F 80 16 149/73 H 98 Room Air 10/13/24 07:58 10/13/24 07:58 10/13/24 07:58 10/13/24 07:58 10/13/24 07:58 10/13/24 07:58 Oxygen Delivery Method Room Air Weight: 145 lb 8.081 oz Body Mass Index (BMI) 26.6 Intake & Output: Intake and Output for Last 24 Hours 10/11/24 10/12/24 10/13/24 23:59 23:59 23:59 Intake Total 2147. 1726.83 / 1726.83 0 / 0 Output Total 0 / 0 Balance 172.83 / 1726.83 0 / 0 Lab / Micro Data Attestation: I reviewed the patient's lab results. 10/13/24 06:18 10/13/24 06:18 Labs: Laboratory Results - last 24 hr 10/12/24 05:34: Sodium 136, Potassium 3.7, Chloride 108, Carbon Dioxide 18.5 L, Anion Gap 10, BUN 27 H, Creatinine 1.63 H, Estim Creat Clear Calc 21.24 L, Est GFR (MDRD) Non-Af 30 L, BUN/Creatinine Ratio 16.6, Glucose 103 H, Calcium 8.4, Total Bilirubin 0.34, AST 19, ALT 13, Alkaline Phosphatase 38, Total Protein 5.9, Albumin 3.4, Globulin 2.6, Albumin/Globulin Ratio 1.3, Triglycerides 85, Cholesterol 146, LDL Cholesterol, Calc 81, VLDL Cholesterol 17, HDL Cholesterol 48, Cholesterol/HDL Ratio 3.02 10/13/24 06:18: WBC 4.7, RBC 3.19 L, Hgb 10.2 L, Hct 31.0 L, MCV 97.2, MCH 32.0,MCHC 32.9, RDW Std Deviation 46.5 H, RDW Coeff of Broderick 13.1, Plt Count 192, MPV 10.2, Immature Gran % (Auto) 0.200, Neut% (Auto) 47.2, Lymph % (Auto) 33.8, Jones % (Auto) 10.0, Eos % (Auto) 7.7 H, Baso % (Auto) 1.1 H, Absolute Neuts (auto) 2.2, Absolute Lymphs (auto) 1.58, Nucleated RBC % 0, Sodium 138, Potassium 4.0, Chloride 111 H, Carbon Dioxide 17.9 L, Anion Gap 9, BUN 24 H, Creatinine 1.43 H, Estim Creat Clear Calc 24.70 L, Est GFR (MDRD) Non-Af 35 L, BUN/Creatinine Ratio 16.6, Glucose 96, Calcium 8.6 Rhythm Strip Rhythm Strip: A-fib Rate: 80 Cardiology Labs/Tests 10/12/24 05:34: Sodium 136, Potassium 3.7, Chloride 108, Carbon Dioxide 18.5 L, Anion Gap 10, BUN 27 H, Creatinine 1.63 H, Est GFR (MDRD) Non-Af 30 L, BUN/Creatinine Ratio 16.6, Glucose 103 H, Calcium 8.4, Total Bilirubin 0.34, Triglycerides 85, Cholesterol 146, VLDL Cholesterol 17, HDL [id number], Cholesterol/HDL Ratio 3.02 10/13/24 06:18: WBC 4.7, RBC 3.19 L, Hgb 10.2 L, Hct 31.0 L, MCV 97.2, MCH 32.0,MCHC 32.9, Plt Count 192, MPV 10.2, Immature Gran % (Auto) 0.200, Neut % (Auto) 47.2, Lymph % (Auto) 33.8, Jones % (Auto) 10.0, Eos % (Auto) 7.7 H, Baso % (Auto)1.1 H, Absolute Neuts (auto) 2.2, Nucleated RBC % 0, [id number], Potassium 4.0, Chloride 111 H, Carbon Dioxide 17.9 L, Anion Gap 9, BUN 24 H, Creatinine 1.43 H,Est GFR (MDRD) Non-Af 35 L, BUN/Creatinine Ratio 16.6, Glucose 96, Calcium 8.6 Rhythm: EKG: ECHO: Stress Test: Cardiac Cath: PCI: CT Surgery: Holter monitor: EPS: PPM: CXR: Chest CT Scan: Radiography Diagnostic Testing: Radiology Impression Echocardiogram 10/11/24 17:56 Interpretation Summary Normal LV size. Left ventricular systolic function is normal. The left ventricular ejection fraction is 60 %. Small (<1.0 cm) pericardial effusion. Pulmonary artery systolic pressure is 64 mmHg. Moderate pulmonary hypertension. Ordering Physician: Jake Kingston Referring Physician: Anay Schuler Performed By: Denise Ron, PAVITHRA, RVT Physical Exam Const alert and oriented x3 HEENT normocephalic Eyes EOMs intact bilaterally Neck Neck Narrative: Noted JVD at the clavicle at 90 degrees unchanged during the admission. Chest inspection of chest normal Resp normal respiratory effort Auscultation: crackles bilateral base Cardio Rate: regular rate Rhythm: abnormal rhythm regularly irregular Heart Sounds: S1 normal and S2 normal; Negative for click, gallop or murmur Extremity General Extremity: edema bilateral lower extremity Details: mild Neuro Neuro Narrative: Alert and oriented x 3 Psych mental status grossly normal Assessment & Plan Assessment/Plan (1) Paroxysmal atrial fibrillation: PLAN: Patient's patient's atrial fibrillation did not convert with IV amiodaroneloading and infusion. Her heart rate is now controlled. She is tolerating oralanticoagulation therapy without nuisance bleeding her hemoglobin is actually up to 10.2 today. The patient carries a history of episodic paroxysmal atrial fibrillation. She is asymptomatic at this point in time and I would recommend that we continue with rate control and oral anticoagulation. She should continue on her current carvedilol at 12.5 mg twice daily and her oral anticoagulation. The patient should follow-up in the [facility] office in the next 2 weeks with one of the advanced practitioners. (2) Elevated troponin: PLAN: Patient's troponins were minimally elevated and consistent with her rapid ventricular response when she was admitted. Echocardiogram showed normal LV function with a EF of 60% no evidence of wall motion abnormalities. RV was normal atria were normal in size. She does have 2+ tricuspid regurgitation and moderate pulmonary artery hypertension with PA pressures of 64. Given the patient's lower extremity edema I would recommend that she take her Lasix 20 mg daily forthe next 2 weeks and be reevaluated in the [facility] office with a BMP at that visit. Shewas instructed that should she become lightheaded or dizzy she should hold the Lasix and call the [facility]. (3) Essential hypertension: PLAN: Historically the patient's blood pressure has been difficult to control but it appears to be well-controlled on her current medical regimen in her home environment. She is to continue her same home meds. PLAN: Plan 1. Patient should be discharged to home on her current cardiovascular medical regimen. 2. The patient should take her Lasix 20 mg daily instead of as needed for the next 2 weeks. 3. The patient should follow-up in the [facility] office with one of our advanced practitioners in 2 weeks and have a basic metabolic panel evaluatedat that time. 4. From a cardiovascular standpoint the patient could be discharged to home later today. Charges/Coding Visit Charges Inpatient E&M: 31369 Subs Hosp L2 10/13/24 0819 Cosigner Signature (if applicable): CC: ~ Signed [facility]04-16-2025 Progress note Author Nirav Cain [facility] Note Date/Time October 12, 2024 11: 35am [facility] Medical Records Department [address] [place] [address] Progress Note - Hospitalist 10/12/24 1129 MR#: [id number] Acct: [id number] Name: REINIER ELIZABETH Mikayla Rep #:[id number] : 1935 88 From: Nirav ellis MD PCP: Dr. Anay Schuler MD Status:ADM I N Location: [place] [address] Subjective Subjective Doing well, no issues overnight. Heart rate has slowed and her blood pressure has improved however she remains in A-fib Objective Data Objective Data Vital Signs: Vital Signs Temp Pulse Resp BP Pulse Ox O2 Del Method 97.7 F L 80 20 H 126/70 H 98 Room Air 10/12/24 10:40 10/12/24 11:00 10/12/24 11:00 10/12/24 11:00 10/12/24 11:00 10/12/24 11:00 Oxygen Delivery Method Room Air Weight: 139 lb 5.314 oz Body Mass Index (BMI) 25.4 Intake & Output: Intake and Output for Last 24 Hours 10/11/24 10/12/24 10/13/24 03:59 03:59 03:59 Intake Total 2227.42 / 2244.12 233.6 / 233.6 Output Total 0 / 0 Balance 2227.42 / 2244.12 233.6 / 233.6 Lab / Micro Data 10/12/24 05:34 10/12/24 05:34 Labs: Laboratory Results - last 24 hr 10/11/24 11:15: WBC 6.8, RBC 3.31 L, Hgb 10.7 L, Hct 31.6 L, MCV 95.5, MCH 32.3 H, MCHC 33.9, RDW Std Deviation 45.2 H, RDW Coeff of Broderick 13.1, Plt Count 199, MPV 10.2, Immature Gran % (Auto) 0.300, Neut % (Auto) 70.8 H, Lymph % (Auto) 15.2 L, Jones % (Auto) 9.6, Eos % (Auto) 3.7, Baso % (Auto) 0.4, Absolute Neuts (auto) 4.8, Absolute Lymphs (auto) 1.04, Nucleated RBC % 0 10/11/24 11:30: PT 20.7 H, INR 1.7, Sodium 134, Potassium 4.1, Chloride 105, Carbon Dioxide 17.4 L, Anion Gap 12, BUN 28 H, Creatinine 1.70 H, Estim Creat Clear Calc 20.52 L, Est GFR (MDRD) Non-Af 29 L, BUN/Creatinine Ratio 16.2, Glucose 117 H, Calcium 8.9, Magnesium 1.7, Troponin T High Sens 82 H*, TSH 2.150 10/11/24 11:55: Urine Color Yellow, Urine Clarity Sl. Cloudy, Urine pH 6.0, Ur Specific [place] 1.015, Urine Protein 30 H, Urine Glucose (UA) Normal, Urine Ketones Negative, Urine Occult Blood Negative, Urine Nitrite Negative, Urine Bilirubin Negative, Urine Urobilinogen Normal, Ur Leukocyte Esterase Negative, Urine RBC 0 SEEN, Urine WBC 0 SEEN, Ur Squamous Epith Cells 0-5 SEEN, Urine Bacteria 0 SEEN, Urine Mucus 0 SEEN 10/11/24 15:00: Troponin T Hi Sens 2 Hr 99 H* 10/12/24 05:34: WBC 4.6, RBC 2.88 L, Hgb 9.1 L, Hct 27.6 L, MCV 95.8, MCH 31.6, MCHC 33.0, RDW Std Deviation 46.0 H, RDW Coeff of Broderick 13.1, Plt Count 181, MPV 10.3, Immature Gran % (Auto) 0.200, Neut % (Auto) 54.2, Lymph % (Auto) 26.7, Jones % (Auto) 11.0 H, Eos % (Auto) 7.5 H, Baso % (Auto) 0.4, Absolute Neuts (auto) 2.5, Absolute Lymphs (auto) 1.24, Nucleated RBC % 0, Sodium 136, Potassium 3.7, Chloride 108, Carbon Dioxide 18.5 L, Anion Gap 10, BUN 27 H, Creatinine 1.63 H, Estim Creat Clear Calc 21.24 L, Est GFR (MDRD) Non-Af 30 L, BUN/Creatinine Ratio 16.6, Glucose 103 H, Calcium 8.4, Total Bilirubin 0.34, AST19, ALT 13, Alkaline Phosphatase 38, Total Protein 5.9, Albumin 3.4, Globulin 2.6, Albumin/Globulin Ratio 1.3, Triglycerides 85, Cholesterol 146, LDL Cholesterol, Calc 81, VLDL Cholesterol 17, HDL Cholesterol 48, Cholesterol/HDL Ratio 3.02 Micro: Microbiology 10/11/24 11:55 Mucosa - Nose SARS-CoV-2, Influenza & RSV (PCR) - Final Radiography Diagnostic Testing: Radiology Impression Chest X-Ray 10/11/24 11:15 IMPRESSION: Borderline cardiomegaly. The lungs are clear. Reading Location: [place] [address] Rhythm Strip Rhythm Strip: A-fib Rate: 75 Physical Exam Narrative General: Alert, Oriented x3, Cooperative, No apparent distress HEENT: Atraumatic, PERRLA, EOMI, Normocephalic Oral: Moist Mucosa Neck: Supple, No JVD Lungs: Diminished, Normal air movement, No rhonchi, No wheeze, No rales Cardiovascular: Regular rate, A-fib, Normal S1, Normal S2, No murmurs Abdomen: Soft, Non Tender, Non-Distended, No Hepato-splenomegaly Extremities: No edema, Capillary Refill Less than 3 Seconds Skin: No rashes, No breakdown Musculoskeletal: No Tenderness to Palpation of Joints or Extremities Neurological: No focal neurological deficits, Motor Exam 5/5 strength throughout, Sensory exam intact to light touch and pain Psych/Mental Status: Normal Affect, Appropriate Assessment & Plan Assessment/Plan (1) Atrial fibrillation with RVR: (2) Elevated troponin: PLAN: Plan 1. A-fib with RVR with elevated troponin due to demand ischemia/essential HTN/HLD/chronic diastolic CHF ? Appreciate cardiology's assistance ? Her RVR resolved so she was transition from Cardizem to amiodarone since she was still in A-fib to see if we can chemically convert her ? She has been maintained on anticoagulation with Xarelto ? Echo is pending ? Last echo was in June 2023 with an EF of 60 to 65% ? Will continue with her Coreg at 12.5 mg p.o. twice daily, as well as losartan ? Continue with her Lasix every other day as needed ? Continue with Lipitor 2. Anemia of chronic disease secondary to CKD 3 ? Hemoglobin appears to be close to baseline ? Renal function also appears to be close to baseline ? Will monitor and make adjustments as necessary 3. Hypothyroidism ? Stable ? Continue with Synthroid ? TSH was stable at 2.15 4. GERD ? Stable ? Continue with PPI DVT: Xarelto Charges/Coding Visit Charges Inpatient E&M: 79995 Subs Hosp L2 10/12/24 1130 <Electronically signed by Nirav Cain MD> Cosigner Signature (if applicable): CC: ~ Signed [facility] Work Phone: 1([phone]) 306-182104-16-2025 Progress note [facility] Medical Records Department [address] [place] [address] Progress Note - Hospitalist 10/12/24 1129 MR#: [id number] Acct: [id number] Name: REINIER ELIZABETH Rep #:[id number] : 1935 88 From: Nirav ellis MD PCP: Dr. Anay Schuler MD Status:ADM I N Location: [place] [address] Subjective Subjective Doing well, no issues overnight. Heart rate has slowed and her blood pressure has improved however she remains in A-fib Objective Data Objective Data Vital Signs: Vital Signs Temp Pulse Resp BP Pulse Ox O2 Del Method 97.7 F L 80 20 H 126/70 H 98 Room Air 10/12/24 10:40 10/12/24 11:00 10/12/24 11:00 10/12/24 11:00 10/12/24 11:00 10/12/24 11:00 Oxygen Delivery Method Room Air Weight: 139 lb 5.314 oz Body Mass Index (BMI) 25.4 Intake & Output: Intake and Output for Last 24 Hours 10/11/24 10/12/24 10/13/24 03:59 03:59 03:59 Intake Total 2227.42 / 2244.12 233.6 / 233.6 Output Total 0 / 0 Balance 2227.42 / 2244.12 233.6 / 233.6 Lab / Micro Data 10/12/24 05:34 10/12/24 05:34 Labs: Laboratory Results - last 24 hr 10/11/24 11:15: WBC 6.8, RBC 3.31 L, Hgb 10.7 L, Hct 31.6 L, MCV 95.5, MCH 32.3 H, MCHC 33.9, RDW Std Deviation 45.2 H, RDW Coeff of Broderick 13.1, Plt Count 199, MPV 10.2, Immature Gran % (Auto) 0.300, Neut % (Auto) 70.8 H, Lymph % (Auto) 15.2 L, Jones % (Auto) 9.6, Eos % (Auto) 3.7, Baso % (Auto) 0.4, Absolute Neuts (auto) 4.8, Absolute Lymphs (auto) 1.04, Nucleated RBC % 0 10/11/24 11:30: PT 20.7 H, INR 1.7, Sodium 134, Potassium 4.1, Chloride 105, Carbon Dioxide 17.4 L,Anion Gap 12, BUN 28 H, Creatinine 1.70 H, Estim Creat Clear Calc 20.52 L, Est GFR (MDRD) Non-Af 29L, BUN/Creatinine Ratio 16.2, Glucose 117 H, Calcium 8.9, Magnesium 1.7, Troponin T High Sens 82 H*, TSH 2.150 10/11/24 11:55: Urine Color Yellow, Urine Clarity Sl. Cloudy, Urine pH 6.0, Ur Specific [place] 1.015, Urine Protein 30 H, Urine Glucose (UA) Normal, Urine Ketones Negative, Urine Occult Blood Negative, Urine Nitrite Negative, Urine Bilirubin Negative, Urine Urobilinogen Normal, Ur Leukocyte Esterase Negative, Urine RBC 0 SEEN, Urine WBC 0 SEEN, Ur Squamous Epith Cells 0-5 SEEN, Urine Bacteria 0 SEEN, Urine Mucus 0 SEEN 10/11/24 15:00: Troponin T Hi Sens 2 Hr 99 H* 10/12/24 05:34: WBC 4.6, RBC 2.88 L, Hgb 9.1 L, Hct 27.6 L, MCV 95.8, MCH 31.6, MCHC 33.0, RDW Std Deviation 46.0 H, RDW Coeff of Broderick 13.1, Plt Count 181, MPV 10.3, Immature Gran % (Auto) 0.200, Neut% (Auto) 54.2, Lymph % (Auto) 26.7, Jones % (Auto) 11.0 H, Eos % (Auto) 7.5 H, Baso % (Auto) 0.4, Absolute Neuts (auto) 2.5, Absolute Lymphs (auto) 1.24, Nucleated RBC % 0, Sodium 136, Potassium 3.7, Chloride 108, Carbon Dioxide 18.5 L, Anion Gap 10, BUN 27 H, Creatinine 1.63 H, Estim Creat Clear Calc 21.24 L, Est GFR (MDRD) Non-Af 30 L, BUN/Creatinine Ratio 16.6, Glucose 103 H, Calcium 8.4, TotalBilirubin 0.34, AST19, ALT 13, Alkaline Phosphatase 38, Total Protein 5.9, Albumin 3.4, Globulin 2.6, Albumin/Globulin Ratio 1.3, Triglycerides 85, Cholesterol 146, LDL Cholesterol, Calc 81, VLDL Cholesterol 17, HDL Cholesterol 48, Cholesterol/HDL Ratio 3.02 Micro: Microbiology 10/11/24 11:55 Mucosa - Nose SARS-CoV-2, Influenza & RSV (PCR) - Final Radiography Diagnostic Testing: Radiology Impression Chest X-Ray 10/11/24 11:15 IMPRESSION: Borderline cardiomegaly. The lungs are clear. Reading Location: [facility] Rhythm Strip Rhythm Strip: A-fib Rate: 75 Physical Exam Narrative General: Alert, Oriented x3, Cooperative, No apparent distress HEENT: Atraumatic, PERRLA, EOMI, Normocephalic Oral: Moist Mucosa Neck: Supple, No JVD Lungs: Diminished, Normal air movement, No rhonchi, No wheeze, No rales Cardiovascular: Regular rate, A-fib, Normal S1, Normal S2, No murmurs Abdomen: Soft, Non Tender, Non-Distended, No Hepato-splenomegaly Extremities: No edema, Capillary Refill Less than 3 Seconds Skin: No rashes, No breakdown Musculoskeletal: No Tenderness to Palpation of Joints or Extremities Neurological: No focal neurological deficits, Motor Exam 5/5 strength throughout, Sensory exam intact to light touch and pain Psych/Mental Status: Normal Affect, Appropriate Assessment & Plan Assessment/Plan (1) Atrial fibrillation with RVR: (2) Elevated troponin: PLAN: Plan 1. A-fib with RVR with elevated troponin due to demand ischemia/essential HTN/HLD/chronic diastolicCHF ? Appreciate cardiology's assistance ? Her RVR resolved so she was transition from Cardizem to amiodarone since she was still in A-fib to see if we can chemically convert her ? She has been maintained on anticoagulation with Xarelto ? Echo is pending ? Last echo was in June 2023 with an EF of 60 to 65% ? Will continue with her Coreg at 12.5 mg p.o. twice daily, as well as losartan ? Continue with her Lasix every other day as needed ? Continue with Lipitor 2. Anemia of chronic disease secondary to CKD 3 ? Hemoglobin appears to be close to baseline ? Renal function also appears to be close to baseline ? Will monitor and make adjustments as necessary 3. Hypothyroidism ? Stable ? Continue with Synthroid ? TSH was stable at 2.15 4. GERD ? Stable ? Continue with PPI DVT: Xarelto Charges/Coding Visit Charges Inpatient E&M: 88625 Subs Hosp L2 10/12/24 1135 Cosigner Signature (if applicable): CC: ~ Signed [facility]04-16-2025 Progress note Author Jake Kingston [facility] Note Date/Time October 12, 2024 8:2 0am [facility] Medical Records Department [address] [place] [address] Progress Note - Cardiology 10/12/24810 MR#: [id number] Acct: [id number] Name: REINIER ELIZABETH Rep #:[id number] : 1935 88 From: Jake Kingston MD PCP: Dr. Anay Schuler MD Status:ADM I N Location: [place] [address] Subjective Subjective Patient reports she feels much better today. She has been out of the bed to [facility] without restrictions. Denies any lightheadedness dizziness. Heart rate is well-controlled on the IV amiodarone and her Coreg. It is uncertain how long the patient has been in this atrial fibrillation by history. It does appear that her rapid ventricular response was the etiology of her symptoms that awoke her from sleep. Once her rate was controlled her symptoms all resolved. Blood pressure is well-controlled since yesterday. Hemoglobin is dropped from 10.7-9.1 since admission. 2D echo is pending this morning. Objective Data Vital Signs: Vital Signs Temp Pulse Resp BP Pulse Ox O2 Del Method 97.9 F 80 18 131/62 H 98 Room Air 10/12/24 06:00 10/12/24 06:14 10/12/24 06:00 10/12/24 06:14 10/12/24 06:00 10/12/24 06:00 Oxygen Delivery Method Room Air Weight: 139 lb 5.314 oz Body Mass Index (BMI) 25.4 Intake & Output: Intake and Output for Last 24 Hours 10/10/24 10/11/24 10/12/24 23:59 23:59 23:59 Intake Total 345.15 / .15 Output Total 0 / 0 Balance . / .15 Lab / Micro Data Attestation: I reviewed the patient's lab results. 10/12/24 05:34 10/11/24 11:30 Labs: Laboratory Results - last 24 hr 10/11/24 11:15: WBC 6.8, RBC 3.31 L, Hgb 10.7 L, Hct 31.6 L, MCV 95.5, MCH 32.3 H, MCHC 33.9, RDW Std Deviation 45.2 H, RDW Coeff of Broderick 13.1, Plt Count 199, MPV 10.2, Immature Gran % (Auto) 0.300, Neut % (Auto) 70.8 H, Lymph % (Auto) 15.2 L, Jones % (Auto) 9.6, Eos % (Auto) 3.7, Baso % (Auto) 0.4, Absolute Neuts (auto) 4.8, Absolute Lymphs (auto) 1.04, Nucleated RBC % 0 10/11/24 11:30: PT 20.7 H, INR 1.7, Sodium 134, Potassium 4.1, Chloride 105, Carbon Dioxide 17.4 L, Anion Gap 12, BUN 28 H, Creatinine 1.70 H, Estim Creat Clear Calc 20.52 L, Est GFR (MDRD) Non-Af 29 L, BUN/Creatinine Ratio 16.2, Glucose 117 H, Calcium 8.9, Magnesium 1.7, Troponin T High Sens 82 H*, TSH 2.150 10/11/24 11:55: Urine Color Yellow, Urine Clarity Sl. Cloudy, Urine pH 6.0, Ur Specific [place] 1.015, Urine Protein 30 H, Urine Glucose (UA) Normal, Urine Ketones Negative, Urine Occult Blood Negative, Urine Nitrite Negative, Urine Bilirubin Negative, Urine Urobilinogen Normal, Ur Leukocyte Esterase Negative, Urine RBC 0 SEEN, Urine WBC 0 SEEN, Ur Squamous Epith Cells 0-5 SEEN, Urine Bacteria 0 SEEN, Urine Mucus 0 SEEN 10/11/24 15:00: Troponin T Hi Sens 2 Hr 99 H* 10/12/24 05:34: WBC 4.6, RBC 2.88 L, Hgb 9.1 L, Hct 27.6 L, MCV 95.8, MCH 31.6, MCHC 33.0, RDW Std Deviation 46.0 H, RDW Coeff of Broderick 13.1, Plt Count 181, MPV 10.3, Immature Gran % (Auto) 0.200, Neut % (Auto) 54.2, Lymph % (Auto) 26.7, Jones % (Auto) 11.0 H, Eos % (Auto) 7.5 H, Baso % (Auto) 0.4, Absolute Neuts (auto) 2.5, Absolute Lymphs (auto) 1.24, Nucleated RBC % 0 Micro: Microbiology 10/11/24 11:55 Mucosa - Nose SARS-CoV-2, Influenza & RSV (PCR) - Final Rhythm Strip Rhythm Strip: A-fib Rate: 75 Cardiology Labs/Tests 10/11/24 11:15: WBC 6.8, RBC 3.31 L, Hgb 10.7 L, Hct 31.6 L, MCV 95.5, MCH 32.3 H, MCHC 33.9, Plt Count 199, MPV 10.2, Immature Gran % (Auto) 0.300, Neut % (Auto) 70.8 H, Lymph % (Auto) 15.2 L, Jones % (Auto) 9.6, Eos % (Auto) 3.7, Baso % (Auto) 0.4, Absolute Neuts (auto) 4.8, Nucleated RBC % 0 10/11/24 11:30: PT 20.7 H, INR 1.7, Sodium 134, Potassium 4.1, Chloride 105, Carbon Dioxide 17.4 L, Anion Gap 12, BUN 28 H, Creatinine 1.70 H, Est GFR (MDRD) Non-Af 29 L, BUN/Creatinine Ratio 16.2, Glucose 117 H, Calcium 8.9, Magnesium 1.7 10/11/24 11:55: Urine Color Yellow, Urine Clarity Sl. Cloudy, Urine pH 6.0, Ur Specific [place] 1.015, Urine Protein 30 H, Urine Glucose (UA) Normal, Urine Ketones Negative, Urine Occult Blood Negative, Urine Nitrite Negative, Urine Bilirubin Negative, Urine Urobilinogen Normal, Ur Leukocyte Esterase Negative, Urine RBC 0 SEEN, Urine WBC 0 SEEN 10/12/24 05:34: WBC 4.6, RBC 2.88 L, Hgb 9.1 L, Hct 27.6 L, MCV 95.8, MCH 31.6, MCHC 33.0, Plt Count 181, MPV 10.3, Immature Gran % (Auto) 0.200, Neut % (Auto) 54.2, Lymph % (Auto) 26.7, Jones % (Auto) 11.0 H, Eos % (Auto) 7.5 H, Baso % (Auto) 0.4, Absolute Neuts (auto) 2.5, Nucleated RBC % 0 Rhythm: EKG: ECHO: Stress Test: Cardiac Cath: PCI: CT Surgery: Holter monitor: EPS: PPM: CXR: Chest CT Scan: Radiography Diagnostic Testing: Radiology Impression Chest X-Ray 10/11/24 11:15 IMPRESSION: Borderline cardiomegaly. The lungs are clear. Reading Location: [place] [address] Physical Exam Const alert and oriented x3 HEENT normocephalic Neck Neck Narrative: Noted JVD at the level of the clavicle at 90 degrees. Chest inspection of chest normal Resp normal respiratory effort Auscultation: crackles left base and diminished lung sounds right lower Cardio Rate: regular rate Rhythm: abnormal rhythm irregularly irregular Heart Sounds: S1 normal and S2 normal; Negative for click, gallop or murmur Extremity no pedal edema Neuro Neuro Narrative: Alert and oriented x 3 Psych mental status grossly normal Assessment & Plan Assessment/Plan (1) Atrial fibrillation with RVR: PLAN: Patient remains in atrial fibrillation. She has a long history of paroxysmal atrial fibrillation. An EKG from August 26, 2024 the patient was in sinus bradycardia. I would recommend that we give her another 24 hours on IV amiodarone. If she does not convert to sinus rhythm I would recommend we continue with rate controland oral anticoagulation therapy. We do need to monitor her CBC as it did go down about 1 g since admission. (2) Elevated troponin: PLAN: Patient has a 2D echocardiogram pending this morning. Provided her echo does not show any new wall motion abnormalities no further evaluation would be indicated at this time. It is highly likely that the elevated troponins were related to her rapid ventricular rate with the atrial fibrillation on presentation. (3) Essential hypertension: PLAN: Blood pressure is well-controlled on her current medical therapy. PLAN: Plan 1. Complete this bag of amiodarone IV. 2. If patient does not convert to sinus rhythm we will DC antiarrhythmic therapy and continue with rate control. 3. Following discontinuation of the IV amiodarone we will monitor the patient'sheart rate and should be able to be discharged to her home environment in the next 24 hours. 4. Obtain results of 2D echocardiogram and further recommendations pending the evaluation of her echo. Charges/Coding Visit Charges Inpatient E&M: 21946 Subs Hosp L3 10/12/24 08 <Electronically signed by Jake Kingston MD> Cosigner Signature (if applicable): CC: ~ Signed [facility] Work Phone: [phone] Progress note [facility] Medical Records Department [address] [facility] [place] [address] Progress Note - Cardiology 10/12/24810 MR#: [id number] Acct: [id number] Name: REINIER ELIZABETH Rep #:[id number] : 1935 88 From: Jake Kingston MD PCP: Dr. Anay Schuler MD Status:ADM I N Location: [place] [address] Subjective Subjective Patient reports she feels much better today. [facility]. Denies any lightheadedness dizziness. Heart rate is well-controlled on the IV amiodarone and her Coreg. It is uncertain how long the patient has been in this atrial fibrillation by history. It does appear that her rapid ventricular response was the etiology of her symptoms that awoke her from sleep. Once her rate was controlled her symptoms all resolved. Blood pressure is well-controlled since yesterday. Hemoglobin is dropped from 10.7-9.1 since admission. 2D echo is pending this morning. Objective Data Vital Signs: Vital Signs Temp Pulse Resp BP Pulse Ox O2 Del Method 97.9 F 80 18 131/62 H 98 Room Air 10/12/24 06:00 10/12/24 06:14 10/12/24 06:00 10/12/24 06:14 10/12/24 06:00 10/12/24 06:00 Oxygen Delivery Method Room Air Weight: 139 lb 5.314 oz Body Mass Index (BMI) 25.4 Intake & Output: Intake and Output for Last 24 Hours 10/10/24 10/11/24 10/12/24 23:59 23:59 23:59 Intake Total Output Total 0 / 0 Balance Lab / Micro Data Attestation: I reviewed the patient's lab results. 10/12/24 05:34 10/11/24 11:30 Labs: Laboratory Results - last 24 hr 10/11/24 11:15: WBC 6.8, RBC 3.31 L, Hgb 10.7 L, Hct 31.6 L, MCV 95.5, MCH 32.3 H, MCHC 33.9, RDW Std Deviation 45.2 H, RDW Coeff of Broderick 13.1, Plt Count 199, MPV 10.2, Immature Gran % (Auto) 0.300, Neut % (Auto) 70.8 H, Lymph % (Auto) 15.2 L, Jones % (Auto) 9.6, Eos % (Auto) 3.7, Baso % (Auto) 0.4, Absolute Neuts (auto) 4.8, Absolute Lymphs (auto) 1.04, Nucleated RBC % 0 10/11/24 11:30: PT 20.7 H, INR 1.7, Sodium 134, Potassium 4.1, Chloride 105, Carbon Dioxide 17.4 L,Anion Gap 12, BUN 28 H, Creatinine 1.70 H, Estim Creat Clear Calc 20.52 L, Est GFR (MDRD) Non-Af 29L, BUN/Creatinine Ratio 16.2, Glucose 117 H, Calcium 8.9, Magnesium 1.7, Troponin T High Sens 82 H*, TSH 2.150 10/11/24 11:55: Urine Color Yellow, Urine Clarity Sl. Cloudy, Urine pH 6.0, Ur Specific [place] 1.015, Urine Protein 30 H, Urine Glucose (UA) Normal, Urine Ketones Negative, Urine Occult Blood Negative, Urine Nitrite Negative, Urine Bilirubin Negative, Urine Urobilinogen Normal, Ur Leukocyte Esterase Negative, Urine RBC 0 SEEN, Urine WBC 0 SEEN, Ur Squamous Epith Cells 0-5 SEEN, Urine Bacteria 0 SEEN, Urine Mucus 0 SEEN 10/11/24 15:00: Troponin T Hi Sens 2 Hr 99 H* 10/12/24 05:34: WBC 4.6, RBC 2.88 L, Hgb 9.1 L, Hct 27.6 L, MCV 95.8, MCH 31.6, MCHC 33.0, RDW Std Deviation 46.0 H, RDW Coeff of Broderick 13.1, Plt Count 181, MPV 10.3, Immature Gran % (Auto) 0.200, Neut% (Auto) 54.2, Lymph % (Auto) 26.7, Jones % (Auto) 11.0 H, Eos % (Auto) 7.5 H, Baso % (Auto) 0.4, Absolute Neuts (auto) 2.5, Absolute Lymphs (auto) 1.24, Nucleated RBC % 0 Micro: Microbiology 10/11/24 11:55 Mucosa - Nose SARS-CoV-2, Influenza & RSV (PCR) - Final Rhythm Strip Rhythm Strip: A-fib Rate: 75 Cardiology Labs/Tests 10/11/24 11:15: WBC 6.8, RBC 3.31 L, Hgb 10.7 L, Hct 31.6 L, MCV 95.5, MCH 32.3 H, MCHC 33.9, Plt Count 199, MPV 10.2, Immature Gran % (Auto) 0.300, Neut % (Auto) 70.8 H, Lymph % (Auto) 15.2 L, Jones % (Auto) 9.6, Eos % (Auto) 3.7, Baso % (Auto) 0.4, Absolute Neuts (auto) 4.8, Nucleated RBC % 0 10/11/24 11:30: PT 20.7 H, INR 1.7, Sodium 134, Potassium 4.1, Chloride 105, Carbon Dioxide 17.4 L,Anion Gap 12, BUN 28 H, Creatinine 1.70 H, Est GFR (MDRD) Non-Af 29 L, BUN/Creatinine Ratio 16.2, Glucose 117 H, Calcium 8.9, Magnesium 1.7 10/11/24 11:55: Urine Color Yellow, Urine Clarity Sl. Cloudy, Urine pH 6.0, Ur Specific [place] 1.015, Urine Protein 30 H, Urine Glucose (UA) Normal, Urine Ketones Negative, Urine Occult Blood Negative, Urine Nitrite Negative, Urine Bilirubin Negative, Urine Urobilinogen Normal, Ur Leukocyte Esterase Negative, Urine RBC 0 SEEN, Urine WBC 0 SEEN 10/12/24 05:34: WBC 4.6, RBC 2.88 L, Hgb 9.1 L, Hct 27.6 L, MCV 95.8, MCH 31.6, MCHC 33.0, Plt Count 181, MPV 10.3, Immature Gran % (Auto) 0.200, Neut % (Auto) 54.2, Lymph % (Auto) 26.7, Jones % (Auto) 11.0 H, Eos % (Auto) 7.5 H, Baso % (Auto) 0.4, Absolute Neuts (auto) 2.5, Nucleated RBC % 0 Rhythm: EKG: ECHO: Stress Test: Cardiac Cath: PCI: CT Surgery: Holter monitor: EPS: PPM: CXR: Chest CT Scan: Radiography Diagnostic Testing: Radiology Impression Chest X-Ray 10/11/24 11:15 IMPRESSION: Borderline cardiomegaly. The lungs are clear. Reading Location: [place] [address] Physical Exam Const alert and oriented x3 HEENT normocephalic Neck Neck Narrative: Noted JVD at the level of the clavicle at 90 degrees. Chest inspection of chest normal Resp normal respiratory effort Auscultation: crackles left base and diminished lung sounds right lower Cardio Rate: regular rate Rhythm: abnormal rhythm irregularly irregular Heart Sounds: S1 normal and S2 normal; Negative for click, gallop or murmur Extremity no pedal edema Neuro Neuro Narrative: Alert and oriented x 3 Psych mental status grossly normal Assessment & Plan Assessment/Plan (1) Atrial fibrillation with RVR: PLAN: Patient remains in atrial fibrillation. She has a long history of paroxysmal atrial fibrillation. An EKG from August 26, 2024 the patient was in sinus bradycardia. I would recommend that we give her another 24 hours on IV amiodarone. If she does not convert to sinus rhythm I would recommend we continue with rate controland oral anticoagulation therapy. We do need to monitor her CBC as it did go down about 1 g since admission. (2) Elevated troponin: PLAN: Patient has a 2D echocardiogram pending this morning. Provided her echo does not show any newwall motion abnormalities no further evaluation would be indicated at this time. It is highly likely that the elevated troponins were related to her rapid ventricular rate with the atrial fibrillation on presentation. (3) Essential hypertension: PLAN: Blood pressure is well-controlled on her current medical therapy. PLAN: Plan 1. Complete this bag of amiodarone IV. 2. If patient does not convert to sinus rhythm we will DC antiarrhythmic therapy and continue with rate control. 3. Following discontinuation of the IV amiodarone we will monitor the patient'sheart rate and should be able to be discharged to her home environment in the next 24 hours. 4. Obtain results of 2D echocardiogram and further recommendations pending the evaluation of her echo. Charges/Coding Visit Charges Inpatient E&M: 94484 Subs Hosp L3 10/12/24 0820 Cosigner Signature (if applicable): CC: ~ Signed [facility]04-15-2025 Consult note Author Jake Kingston [facility] Note Date/Time October 11, 2024 5:5 7pm [facility] Medical Records Department [address] [place] [address] Consultation - Cardiology 10/11/24 1732 MR#: [id number] Acct: [id number] Name: REINIER ELIZABETH Rep #:[id number] : 1935 88 From: Jake Kingston MD PCP: Dr. Anay Schuler MD Status:ADM I N Location: [place] [address] Assessment & Plan Assessment/Plan (1) Atrial fibrillation with RVR: PLAN: Patient's rate has been much better controlled and her blood pressure is increased to 156 systolic. Heart rate is now 70 on telemetry. She does remain in atrial fibrillation by twelve-lead EKG done this evening. Patient has been maintained on Xarelto for oral anticoagulation therapy. I would recommend at this point time that we attempt to chemical cardiovert her with amiodarone. I would recommend we discontinue the IV Cardizem and replace that with the IV amiodarone. If this is not successful in converting her in the next 24 to 48 hours we could consider direct-current cardioversion or alternatively leaving her in atrial fibrillation with rate control and oral anticoagulation therapy. Given the patient's history of GI bleeding we had offered her a Watchman device but she has decided not to do that as of the last office visit in April 2024. (2) Elevated troponin: PLAN: Patient's troponin is elevated most likely because of her tachycardia and her history of hypertension with presumed LV hypertrophy. I would recommend that we repeat an echocardiogram to reevaluate her LV function. I do not feel that proceeding to invasive evaluation with coronary angiography is indicated. She had a history of a normal heart cath 7 years ago when she was 81 years old she had normal coronary arteries. (3) Chronic kidney disease: QUALIFIERS: Chronic kidney disease stage: stage 4 (GFR 15-29) Qualified Code(s): N18.4 - Chronic kidney disease, stage 4 (severe) PLAN: Patient's GFR is 29 consistent with stage IV chronic kidney disease. (4) CHF (congestive heart failure): QUALIFIERS: Heart failure type: diastolic Heart failure chronicity: unspecified Qualified Code(s): I50.30 - Unspecified diastolic (congestive) heart failure PLAN: Patient has a history of heart failure with preserved ejection fraction. However her chest x-ray is completely clear but her lungs do have crackles in the bases bilaterally. She denies any lower extremity edema which she has had intermittently in the past. She is tolerating her Lasix without incident. (5) Essential hypertension: PLAN: Patient's blood pressure has been difficult to control in the past. She is on multiple medications at this point in time and on initial presentation washypotensive. We have been utilizing carvedilol 12.5 mg twice daily along with hydralazine 50 mg 3 times daily she is also on losartan 50 mg twice daily she does receive Lasix and potassium replacement. At this point in time we should gingerly reintroduce her blood pressure medicines starting with the Coreg. PLAN: Plan 1. Will DC IV Cardizem and utilize amiodarone as a better option of potentiallycardioverting her chemically. 2. Continue her Xarelto. 3. Will slowly restart her antihypertensive meds as blood pressure dictates. 4. Will check a 2D echocardiogram. HPI Consult Data Date of Consult: 10/11/24 HPI Narrative Reason for Consultation: Atrial fibs with RVR. HPI Narrative: REINIER ELIZABETH, is a 88 F who presents with a sudden onset of a burning chest sensation that awoke her at approximately 12 AM this morning. This lasted untilabout 4 AM. She continued to feel some fluttering in her chest and her heart rate was documented in the 130 bpm range. She therefore presented to the emergency department for evaluation. The patient's blood pressure emerged part was initially in the 100 systolic range. She was given a bolus of IV Cardizem and started on IV Cardizem drip with some mild improvement in her rate. She also received a dose of Lanoxin 250mcg. Upon my evaluation the patient in approximately 1700 hrs. the patient was feeling much better her heart rate was 70 bpm and a subsequent twelve-lead EKG showed that she remained in atrial fibrillation with a controlled ventricular response. The patient has been chronically on Xarelto which she is tolerated without any nuisance bleeding. The patient has recently been treated with 3 different rounds of antibiotics for UTIs. Patient also has a history of hypothyroidism on medical therapy followed by Dr. Terry Basilio. She also has a history of chronic kidney disease. Her hypertension has been difficult to control in the past requiring multiple medications. Patient does also have a history of remote GI bleeding. The patient's last echocardiogram showed normal LV function but that was over a year ago. I would recommend that we repeat a 2D echocardiogram given the fact that her troponins were elevated upon admission but this is most likely related to a combination of her history of hypertension with her tachyarrhythmia. The patient had a remote heart catheterization in 2018 which showed normal coronary arteries. The last echocardiogram June 2023 showed an EF estimated at 60-65%with normal systolic function mild TR mild MR no pericardial effusion. There was a history of pulmonary hypertension with pulmonary artery pressures of 60 mmHg documented at some point in time in the past. [facility] Medical History Hypothyroidism (acquired) Wears glasses Post-menopausal Thyroid disease Gastric reflux Former smoker History of edema History of echocardiogram History of stress test Cardiology follow-up encounter History of CHF (congestive heart failure) Paroxysmal atrial fibrillation Stage 3b chronic kidney disease (CKD) Elevated liver enzymes CKD (chronic kidney disease) stage 4, GFR 15-29 ml/min Stage 3b chronic kidney disease (CKD) Lymphedema of both lower extremities Bilateral lower extremity edema Dyspnea on exertion Pneumonia (03/19/22) Essential hypertension Atrial fibrillation, new onset Positive occult stool blood test Umbilical hernia Osteoporosis Hemorrhage of anus and rectum Glaucoma Acquired keratoderma Anemia Syncope Essential hypertension Sweating Palpitations Near syncope Hernia HLD (hyperlipidemia) Home Medications ?Medication ?Instructions ?Recorded ?Last Taken ?Type atorvastatin 20 mg tablet 20 mg PO QODAY Cholesterol 0 12/06/16 07/12/23 09:00 History latanoprost 0.005 % eye drops 1 drp ophthalmic (eye) B ID eye 12/06/16 10/10/24 History drops timolol maleate 0.5 % eye drops 1 drp RIGHT EYE BID ey e drops 12/06/16 10/10/24 History brimonidine 0.15 % eye drops 1 drp ophthalmic (eye) BI D eye 03/25/22 10/10/24 History health levothyroxine 25 mcg tablet 25 mcg PO DAILY thyroid 10/11/24 History losartan 50 mg tablet 50 mg PO BID bp #180 tabs 10/11/24 Rx cholecalciferol (vitamin D3) 50 50 mcg PO BID suppleme nt 05/08/23 10/11/24 History mcg (2,000 unit) capsule mecobalamin (vitamin B12) 1,000 1,000 mcg PO DAILY sup plement 05/08/23 10/11/24 History mcg chewable tablet denosumab 60 mg/mL subcutaneous 60 mg subcut [id number] bone health 08/20/23 Unknown History syringe (Prolia) rivaroxaban 15 mg tablet (Xarelto) 15 mg PO DINNER blo od thinner #30 04/25/24 10/11/24 Rx tabs furosemide 20 mg tablet 20 mg PO QODAY PRN diuresis 06/14/24 Unknown History omeprazole 40 mg capsule,delayed 20 mg PO DAILY gerd 1 08/15/23 10/11/24 History release carvedilol 12.5 mg tablet 12.5 mg PO BID bp #180 tabs 08/17/24 10/11/24 Rx potassium chloride 10 mEq 20 meq PO DAILY 08/27/24 History capsule,extended release vibegron 75 mg tablet (Gemtesa) 75 mg PO DAILY 5 10/11/24 History hydralazine 50 mg tablet 50 mg PO TID #270 tabs 09/0510/11/24 Rx Allergy/AdvReac Type Severity Reaction Status Date / Time amantadine Allergy Rash Verified 10/11/24 11:11 cephalexin Allergy Rash Verified 10/11/24 11:11 erythromycin base Allergy Rash Verified 10/11/24 11:11 hydrochlorothiazide Allergy Rash Verified 10/11/24 11:11 Iodinated Contrast Media Allergy Rash Verified 10/11/24 11:11 nitrofurantoin (From Allergy Vomiting Verified 10/11/24 11:11 Macrobid) amlodipine (From Norvasc) AdvReac Other Verified 10/11/24 11:11 Family History Mother CAD (coronary artery disease) Father CAD (coronary artery disease) Brother CAD (coronary artery disease) Sister CAD (coronary artery disease) Surgical History History of cardiac catheterization Hx of esophagogastroduodenoscopy History of colonoscopy History of hysteroscopy H/O hernia repair Tubal ligation status History of left heart catheterization (02/05/18) s/p left wrist ORIF Social History household members: none housing: apartment number of children: 4 Smoking Status: Former smoker quit date: 06/29/76 alcohol intake: never substance use type: does not use caffeine: Yes (Occasionally) ROS Constitutional Constitutional: Reports as per HPI Eyes Eyes: Reports systems reviewed and no addt'l complaints, except as documented ENT HEENT: Reports systems reviewed and no addt'l complaints, except as documented Cardiovascular Cardiovascular: Reports as per HPI Respiratory/Chest Respiratory/Chest: Reports as per HPI Gastrointestinal Gastrointestinal: Reports systems reviewed and no addt'l complaints, except as documented Genitourinary Genitourinary: Reports as per HPI Musculoskeletal Musculoskeletal: Reports systems reviewed and no addt'l complaints, except as documented Integumentary Integumentary: Reports systems reviewed and no addt'l complaints, except as documented Neurologic Neurologic: Reports systems reviewed and no addt'l complaints, except as documented Psychiatric Psychiatric: Reports systems reviewed and no addt'l complaints, except as documented Endocrine Endocrinology: Reports as per HPI Hematologic/Lymphatic Hematologic/Lymphatic: Reports as per HPI Allergic/Immunologic Allergic/Immunologic: Reports systems reviewed and no addt'l complaints, except as documented Physical Exam Const alert and oriented x3 HEENT normocephalic Eyes EOMs intact bilaterally Neck no carotid bruits Neck Narrative: Noted JVD at the clavicle at 90 degrees. Chest inspection of chest normal Resp normal respiratory effort Auscultation: crackles bilateral base Cardio Rate: regular rate Rhythm: abnormal rhythm irregularly irregular Heart Sounds: S1 normal and S2 normal; Negative for click, gallop or murmur GI soft to palpation Extremity no pedal edema Neuro Neuro Narrative: Alert and oriented x 3 Psych mental status grossly normal Risk Stratification Risk Stratification Applicable: Yes Age >/= 65: Yes >/= 3 CAD Risk Factors (HTN, HLD, DM, family hx of CAD, or current smoker): Yes Aspirin Use in the Past 7 Days: No Severe Angina (>/= episodes in 24 hours): No EKG ST Changes >/= 0.5mm: No Positive Cardiac Marker: Yes LANA Risk Stratification Score: 3 LANA % Risk: 13% Risk Charges/Coding Visit Charges Inpatient E&M: 72002 Init Hosp L3 Objective Data Vital Signs: Vital Signs Temp Pulse Resp BP Pulse Ox O2 Del Method 98.1 F 94 21 H 151/85 H 96 Room Air 10/11/24 15:57 10/11/24 16:15 10/11/24 16:15 10/11/24 16:15 10/11/24 16:15 10/11/24 16:15 Oxygen Delivery Method Room Air Weight: 138 lb 14.4 oz Body Mass Index (BMI) 25.4 Intake & Output: Intake and Output for Last 24 Hours 10/09/24 10/10/24 10/11/24 23:59 23:59 23:59 Intake Total 1007.0 / 1007.0 Balance 1007.0 / 1007.0 Lab / Micro Data Attestation: I reviewed the patient's lab results. 10/11/24 11:15 10/11/24 11:30 Labs: Laboratory Results - last 24 hr 10/11/24 11:15: WBC 6.8, RBC 3.31 L, Hgb 10.7 L, Hct 31.6 L, MCV 95.5, MCH 32.3 H, MCHC 33.9, RDW Std Deviation 45.2 H, RDW Coeff of Broderick 13.1, Plt Count 199, MPV 10.2, Immature Gran % (Auto) 0.300, Neut % (Auto) 70.8 H, Lymph % (Auto) 15.2 L, Jones % (Auto) 9.6, Eos % (Auto) 3.7, Baso % (Auto) 0.4, Absolute Neuts (auto) 4.8, Absolute Lymphs (auto) 1.04, Nucleated RBC % 0 10/11/24 11:30: PT 20.7 H, INR 1.7, Sodium 134, Potassium 4.1, Chloride 105, Carbon Dioxide 17.4 L, Anion Gap 12, BUN 28 H, Creatinine 1.70 H, Estim Creat Clear Calc 20.52 L, Est GFR (MDRD) Non-Af 29 L, BUN/Creatinine Ratio 16.2, Glucose 117 H, Calcium 8.9, Magnesium 1.7, Troponin T High Sens 82 H*, TSH 2.150 10/11/24 11:55: Urine Color Yellow, Urine Clarity Sl. Cloudy, Urine pH 6.0, Ur Specific [place] 1.015, Urine Protein 30 H, Urine Glucose (UA) Normal, Urine Ketones Negative, Urine Occult Blood Negative, Urine Nitrite Negative, Urine Bilirubin Negative, Urine Urobilinogen Normal, Ur Leukocyte Esterase Negative, Urine RBC 0 SEEN, Urine WBC 0 SEEN, Ur Squamous Epith Cells 0-5 SEEN, Urine Bacteria 0 SEEN, Urine Mucus 0 SEEN 10/11/24 15:00: Troponin T Hi Sens 2 Hr 99 H* Micro: Microbiology 10/11/24 11:55 Mucosa - Nose SARS-CoV-2, Influenza & RSV (PCR) - Final Rhythm Strip Rhythm Strip: A-fib Rate: 70 Cardiology Labs/Tests 10/11/24 11:15: WBC 6.8, RBC 3.31 L, Hgb 10.7 L, Hct 31.6 L, MCV 95.5, MCH 32.3 H, MCHC 33.9, Plt Count 199, MPV 10.2, Immature Gran % (Auto) 0.300, Neut % (Auto) 70.8 H, Lymph % (Auto) 15.2 L, Jones % (Auto) 9.6, Eos % (Auto) 3.7, Baso % (Auto) 0.4, Absolute Neuts (auto) 4.8, Nucleated RBC % 0 10/11/24 11:30: PT 20.7 H, INR 1.7, Sodium 134, Potassium 4.1, Chloride 105, Carbon Dioxide 17.4 L, Anion Gap 12, BUN 28 H, Creatinine 1.70 H, Est GFR (MDRD) Non-Af 29 L, BUN/Creatinine Ratio 16.2, Glucose 117 H, Calcium 8.9, Magnesium 1.7 10/11/24 11:55: Urine Color Yellow, Urine Clarity Sl. Cloudy, Urine pH 6.0, Ur Specific [place] 1.015, Urine Protein 30 H, Urine Glucose (UA) Normal, Urine Ketones Negative, Urine Occult Blood Negative, Urine Nitrite Negative, Urine Bilirubin Negative, Urine Urobilinogen Normal, Ur Leukocyte Esterase Negative, Urine RBC 0 SEEN, Urine WBC 0 SEEN Rhythm: EKG: ECHO: Stress Test: Cardiac Cath: PCI: CT Surgery: Holter monitor: EPS: PPM: CXR: Chest CT Scan: Radiography Diagnostic Testing: Radiology Impression Chest X-Ray 10/11/24 11:15 IMPRESSION: Borderline cardiomegaly. The lungs are clear. Reading Location: [place] [address] 10/11/24 175 <Electronically signed by Jake Kingston MD> Cosigner Signature (if applicable): CC: Dr. Anay Schuler MD~ Signed [facility] Work Phone: [phone] Consult note [facility] Medical Records Department [address] [place] [address] Consultation - Cardiology 10/11/24 1732 MR#: [id number] Acct: [id number] Name: REINIER ELIZABETH Rep #:[id number] : [id number] From: Jake Kingston MD PCP: Dr. Anay Schuler MD Status:ADM I N Location: [place] [address] Assessment & Plan Assessment/Plan (1) Atrial fibrillation with RVR: PLAN: Patient's rate has been much better controlled and her blood pressure is increased to 156 systolic. Heart rate is now 70 on telemetry. She does remain in atrial fibrillation by twelve-lead EKG done this evening. Patient has been maintained on Xarelto for oral anticoagulation therapy. I would recommend at this point time that we attempt to chemical cardiovert her with amiodarone. I would recommend we discontinue the IV Cardizem and replace that with the IV amiodarone. If this is not successful in converting her in the next 24 to 48 hours we could consider direct-current cardioversion or alternatively leaving her in atrial fibrillation with rate control and oral anticoagulation therapy. Given the patient's history of GI bleeding we had offered her a Watchman device but she has decidednot to do that as of the last office visit in April 2024. (2) Elevated troponin: PLAN: Patient's troponin is elevated most likely because of her tachycardia and her history of hypertension with presumed LV hypertrophy. I would recommend that we repeat an echocardiogram to reevaluate her LV function. I do not feel that proceeding to invasive evaluation with coronary angiography is indicated. She had a history of a normal heart cath 7 years ago when she was 81 years old she hadnormal coronary arteries. (3) Chronic kidney disease: QUALIFIERS: Chronic kidney disease stage: stage 4 (GFR 15-29) Qualified Code(s): N18.4 - Chronic kidney disease, stage 4 (severe) PLAN: Patient's GFR is 29 consistent with stage IV chronic kidney disease. (4) CHF (congestive heart failure): QUALIFIERS: Heart failure type: diastolic Heart failure chronicity: unspecified Qualified Code(s): I50.30 - Unspecified diastolic (congestive) heart failure PLAN: Patient has a history of heart failure with preserved ejection fraction. However her chest x-ray is completely clear but her lungs do have crackles in the bases bilaterally. She denies any lower extremity edema which she has had intermittently in the past. She is tolerating her Lasix without incident. (5) Essential hypertension: PLAN: Patient's blood pressure has been difficult to control in the past. She is on multiple medications at this point in time and on initial presentation washypotensive. We have been utilizing carvedilol 12.5 mg twice daily along with hydralazine 50 mg 3 times daily she is also on losartan 50 mg twice daily she does receive Lasix and potassium replacement. At this point in time we should gingerly reintroduce her blood pressure medicines starting with theCoreg. PLAN: Plan 1. Will DC IV Cardizem and utilize amiodarone as a better option of potentiallycardioverting her chemically. 2. Continue her Xarelto. 3. Will slowly restart her antihypertensive meds as blood pressure dictates. 4. Will check a 2D echocardiogram. HPI Consult Data Date of Consult: 10/11/24 HPI Narrative Reason for Consultation: Atrial fibs with RVR. HPI Narrative: REINIER ELIZABETH, is a 88 F who presents with a sudden onset of a burning chest sensation that awoke her at approximately 12 AM this morning. This lasted untilabout 4 AM. She continued to feel some fluttering in her chest and her heart rate was documented in the 130 bpm range. She therefore presentedto the emergency department for evaluation. The patient's blood pressure emerged part was initially in the 100 systolic range. She was given a bolus of IV Cardizem and started on IV Cardizem drip with some mild improvement in her rate. She also received a dose of Lanoxin 250mcg. Upon my evaluation the patient in approximately 1700 hrs. the patient was feeling much better her heart rate was 70 bpm and a subsequent twelve-lead EKG showed that she remained in atrial fibrillation with a controlled ventricular response. The patient has been chronically on Xarelto which she is tolerated without any nuisance bleeding. The patient has recently been treated with 3 different rounds of antibiotics for UTIs. Patient also has a history of hypothyroidism on medical therapy followed by Dr. Terry Basilio. She also has a history of chronic kidney disease. Her hypertension has been difficult to control in the past requiring multiple medications. Patient does also have a history of remote GI bleeding. The patient's last echocardiogram showed normal LV function but that was over a year ago. I would recommend that we repeat a 2D echocardiogram given the fact that her troponins were elevated upon admission but this is most likely related to a combination of her history of hypertension with her tachyarrhythmia. The patient had a remote heart catheterization in 2018 which showed normal coronary arteries. The last echocardiogram June 2023 showed an EF estimated at 60- 65%with normal systolic function mild TR mild MR no pericardial effusion. There was a history of pulmonary hypertension with pulmonary artery pressures of 60 mmHg documented at some point in time in the past. [facility] Medical History Hypothyroidism (acquired) Wears glasses Post-menopausal Thyroid disease Gastric reflux Former smoker History of edema History of echocardiogram History of stress test Cardiology follow-up encounter History of CHF (congestive heart failure) Paroxysmal atrial fibrillation Stage 3b chronic kidney disease (CKD) Elevated liver enzymes CKD (chronic kidney disease) stage 4, GFR 15-29 ml/min Stage 3b chronic kidney disease (CKD) Lymphedema of both lower extremities Bilateral lower extremity edema Dyspnea on exertion Pneumonia (03/19/22) Essential hypertension Atrial fibrillation, new onset Positive occult stool blood test Umbilical hernia Osteoporosis Hemorrhage of anus and rectum Glaucoma Acquired keratoderma Anemia Syncope Essential hypertension Sweating Palpitations Near syncope Hernia HLD (hyperlipidemia) Home Medications ?Medication ?Instructions ?Recorded ?Last Taken ?Type atorvastatin 20 mg tablet 20 mg PO QODAY Cholesterol 0 12/06/16 07/12/23 09:00 History latanoprost 0.005 % eye drops 1 drp ophthalmic (eye) B ID eye 12/06/16 10/10/24 History drops timolol maleate 0.5 % eye drops 1 drp RIGHT EYE BID ey e drops 12/06/16 10/10/24 History brimonidine 0.15 % eye drops 1 drp ophthalmic (eye) BI D eye 03/25/22 10/10/24 History health levothyroxine 25 mcg tablet 25 mcg PO DAILY thyroid 10/11/24 History losartan 50 mg tablet 50 mg PO BID bp #180 tabs 10/11/24 Rx cholecalciferol (vitamin D3) 50 50 mcg PO BID suppleme nt 05/08/23 10/11/24 History mcg (2,000 unit) capsule mecobalamin (vitamin B12) 1,000 1,000 mcg PO DAILY sup plement 05/08/23 10/11/24 History mcg chewable tablet denosumab 60 mg/mL subcutaneous 60 mg subcut [id number] bone health 08/20/23 Unknown History syringe (Prolia) rivaroxaban 15 mg tablet (Xarelto) 15 mg PO DINNER blo od thinner #30 04/25/24 10/11/24 Rx tabs furosemide 20 mg tablet 20 mg PO QODAY PRN diuresis 06/14/24 Unknown History omeprazole 40 mg capsule,delayed 20 mg PO DAILY gerd 1 08/15/23 10/11/24 History release carvedilol 12.5 mg tablet 12.5 mg PO BID bp #180 tabs 08/17/24 10/11/24 Rx potassium chloride 10 mEq 20 meq PO DAILY 08/27/24 History capsule,extended release vibegron 75 mg tablet (Gemtesa) 75 mg PO DAILY 5 10/11/24 History hydralazine 50 mg tablet 50 mg PO TID #270 tabs 09/0510/11/24 Rx Allergy/AdvReac Type Severity Reaction Status Date / Time amantadine Allergy Rash Verified 10/11/24 11:11 cephalexin Allergy Rash Verified 10/11/24 11:11 erythromycin base Allergy Rash Verified 10/11/24 11:11 hydrochlorothiazide Allergy Rash Verified 10/11/24 11:11 Iodinated Contrast Media Allergy Rash Verified 10/11/24 11:11 nitrofurantoin (From Allergy Vomiting Verified 10/11/24 11:11 Macrobid) amlodipine (From Norvasc) AdvReac Other Verified 10/11/24 11:11 Family History Mother CAD (coronary artery disease) Father CAD (coronary artery disease) Brother CAD (coronary artery disease) Sister CAD (coronary artery disease) Surgical History History of cardiac catheterization Hx of esophagogastroduodenoscopy History of colonoscopy History of hysteroscopy H/O hernia repair Tubal ligation status History of left heart catheterization (02/05/18) s/p left wrist ORIF Social History household members: none housing: apartment number of children: 4 Smoking Status: Former smoker quit date: 06/29/76 alcohol intake: never substance use type: does not use caffeine: Yes (Occasionally) ROS Constitutional Constitutional: Reports as per HPI Eyes Eyes: Reports systems reviewed and no addt'l complaints, except as documented ENT HEENT: Reports systems reviewed and no addt'l complaints, except as documented Cardiovascular Cardiovascular: Reports as per HPI Respiratory/Chest Respiratory/Chest: Reports as per HPI Gastrointestinal Gastrointestinal: Reports systems reviewed and no addt'l complaints, except as documented Genitourinary Genitourinary: Reports as per HPI Musculoskeletal Musculoskeletal: Reports systems reviewed and no addt'l complaints, except as documented Integumentary Integumentary: Reports systems reviewed and no addt'l complaints, except as documented Neurologic Neurologic: Reports systems reviewed and no addt'l complaints, except as documented Psychiatric Psychiatric: Reports systems reviewed and no addt'l complaints, except as documented Endocrine Endocrinology: Reports as per HPI Hematologic/Lymphatic Hematologic/Lymphatic: Reports as per HPI Allergic/Immunologic Allergic/Immunologic: Reports systems reviewed and no addt'l complaints, except as documented Physical Exam Const alert and oriented x3 HEENT normocephalic Eyes EOMs intact bilaterally Neck no carotid bruits Neck Narrative: Noted JVD at the clavicle at 90 degrees. Chest inspection of chest normal Resp normal respiratory effort Auscultation: crackles bilateral base Cardio Rate: regular rate Rhythm: abnormal rhythm irregularly irregular Heart Sounds: S1 normal and S2 normal; Negative for click, gallop or murmur GI soft to palpation Extremity no pedal edema Neuro Neuro Narrative: Alert and oriented x 3 Psych mental status grossly normal Risk Stratification Risk Stratification Applicable: Yes Age >/= 65: Yes >/= 3 CAD Risk Factors (HTN, HLD, DM, family hx of CAD, or current smoker): Yes Aspirin Use in the Past 7 Days: No Severe Angina (>/= episodes in 24 hours): No EKG ST Changes >/= 0.5mm: No Positive Cardiac Marker: Yes LANA Risk Stratification Score: 3 LANA % Risk: 13% Risk Charges/Coding Visit Charges Inpatient E&M: 65913 Init Hosp L3 Objective Data Vital Signs: Vital Signs Temp Pulse Resp BP Pulse Ox O2 Del Method 98.1 F 94 21 H 151/85 H 96 Room Air 10/11/24 15:57 10/11/24 16:15 10/11/24 16:15 10/11/24 16:15 10/11/24 16:15 10/11/24 16:15 Oxygen Delivery Method Room Air Weight: 138 lb 14.4 oz Body Mass Index (BMI) 25.4 Intake & Output: Intake and Output for Last 24 Hours 10/09/24 10/10/24 10/11/24 23:59 23:59 23:59 Intake Total 1007.0 / 1007.0 Balance 1007.0 / 1007.0 Lab / Micro Data Attestation: I reviewed the patient's lab results. 10/11/24 11:15 10/11/24 11:30 Labs: Laboratory Results - last 24 hr 10/11/24 11:15: WBC 6.8, RBC 3.31 L, Hgb 10.7 L, Hct 31.6 L, MCV 95.5, MCH 32.3 H, MCHC 33.9, RDW Std Deviation 45.2 H, RDW Coeff of Broderick 13.1, Plt Count 199, MPV 10.2, Immature Gran % (Auto) 0.300, Neut % (Auto) 70.8 H, Lymph % (Auto) 15.2 L, Jones % (Auto) 9.6, Eos % (Auto) 3.7, Baso % (Auto) 0.4, Absolute Neuts (auto) 4.8, Absolute Lymphs (auto) 1.04, Nucleated RBC % 0 10/11/24 11:30: PT 20.7 H, INR 1.7, Sodium 134, Potassium 4.1, Chloride 105, Carbon Dioxide 17.4 L,Anion Gap 12, BUN 28 H, Creatinine 1.70 H, Estim Creat Clear Calc 20.52 L, Est GFR (MDRD) Non-Af 29L, BUN/Creatinine Ratio 16.2, Glucose 117 H, Calcium 8.9, Magnesium 1.7, Troponin T High Sens 82 H*, TSH 2.150 10/11/24 11:55: Urine Color Yellow, Urine Clarity Sl. Cloudy, Urine pH 6.0, Ur Specific [place] 1.015, Urine Protein 30 H, Urine Glucose (UA) Normal, Urine Ketones Negative, Urine Occult Blood Negative, Urine Nitrite Negative, Urine Bilirubin Negative, Urine Urobilinogen Normal, Ur Leukocyte Esterase Negative, Urine RBC 0 SEEN, Urine WBC 0 SEEN, Ur Squamous Epith Cells 0-5 SEEN, Urine Bacteria 0 SEEN, Urine Mucus 0 SEEN 10/11/24 15:00: Troponin T Hi Sens 2 Hr 99 H* Micro: Microbiology 10/11/24 11:55 Mucosa - Nose SARS-CoV-2, Influenza & RSV (PCR) - Final Rhythm Strip Rhythm Strip: A-fib Rate: 70 Cardiology Labs/Tests 10/11/24 11:15: WBC 6.8, RBC 3.31 L, Hgb 10.7 L, Hct 31.6 L, MCV 95.5, MCH 32.3 H, MCHC 33.9, Plt Count 199, MPV 10.2, Immature Gran % (Auto) 0.300, Neut % (Auto) 70.8 H, Lymph % (Auto) 15.2 L, Jones % (Auto) 9.6, Eos % (Auto) 3.7, Baso % (Auto) 0.4, Absolute Neuts (auto) 4.8, Nucleated RBC % 0 10/11/24 11:30: PT 20.7 H, INR 1.7, Sodium 134, Potassium 4.1, Chloride 105, Carbon Dioxide 17.4 L,Anion Gap 12, BUN 28 H, Creatinine 1.70 H, Est GFR (MDRD) Non-Af 29 L, BUN/Creatinine Ratio 16.2, Glucose 117 H, Calcium 8.9, Magnesium 1.7 10/11/24 11:55: Urine Color Yellow, Urine Clarity Sl. Cloudy, Urine pH 6.0, Ur Specific [place] 1.015, Urine Protein 30 H, Urine Glucose (UA) Normal, Urine Ketones Negative, Urine Occult Blood Negative, Urine Nitrite Negative, Urine Bilirubin Negative, Urine Urobilinogen Normal, Ur Leukocyte Esterase Negative, Urine RBC 0 SEEN, Urine WBC 0 SEEN Rhythm: EKG: ECHO: Stress Test: Cardiac Cath: PCI: CT Surgery: Holter monitor: EPS: PPM: CXR: Chest CT Scan: Radiography Diagnostic Testing: Radiology Impression Chest X-Ray 10/11/24 11:15 IMPRESSION: Borderline cardiomegaly. The lungs are clear. Reading Location: [place] [address] 10/11/24 175 Cosigner Signature (if applicable): CC: Dr. Anay Schuler MD~ Signed [facility]04-15-2025 Discharge summary Author Brigido Alejandre [facility] Note Date/Time October 11, 2024 3:4 4pm [facility] Medical Records Department [address] [place] [id number] Emergency Department Summary 10/11/24 MR#: [id number] Acct: [id number] Name: REINIER ELIZABETH Rep #:[id number] : 1935 88 From: Brigido KEENE PCP: Dr. Anay Schuler MD Status:ADM I N Location: [place] [id number] HPI <YECENIA Muller - Last Filed: 10/11/24 14:00> History of Present Illness Chief Complaint: Chest Pain Narrative Narrative: Patient is a 88-year-old female with history of hypertension, atrial fibrillation with RVR, on Xarelto, history of irregular heartbeat, presenting tot ER department for fast heart rate, chest burning. Patient states that over the last several weeks, she has been treated with Macrobid, Cipro, as well as Bactrim. Last time she took was 2 days ago. Patient states that around 12 AM this morning, she developed chest burning with a heart rate of 136. This lastedtill 4 AM. She states that she can still feel that her heart rate is elevated. She denies any significant chest pain at this time, fever chills nausea vomiting. She stopped the Bactrim yesterday because she thinks it is making hercough. Here for evaluation. [facility] <YECENIA Muller - Last Filed: 10/11/24 14:00> [facility] Medical History Hypothyroidism (acquired) Wears glasses Post-menopausal Thyroid disease Gastric reflux Former smoker History of edema History of echocardiogram History of stress test Cardiology follow-up encounter History of CHF (congestive heart failure) Paroxysmal atrial fibrillation Stage 3b chronic kidney disease (CKD) Elevated liver enzymes CKD (chronic kidney disease) stage 4, GFR 15-29 ml/min Stage 3b chronic kidney disease (CKD) Lymphedema of both lower extremities Bilateral lower extremity edema Dyspnea on exertion Pneumonia (03/19/22) Essential hypertension Atrial fibrillation, new onset Positive occult stool blood test Umbilical hernia Osteoporosis Hemorrhage of anus and rectum Glaucoma Acquired keratoderma Anemia Syncope Essential hypertension Sweating Palpitations Near syncope Hernia HLD (hyperlipidemia) Home Medications ?Medication ?Instructions ?Recorded ?Last Taken ?Type atorvastatin 20 mg tablet 20 mg PO QODAY Cholesterol 0 12/06/16 07/12/23 09:00 History latanoprost 0.005 % eye drops 1 drp ophthalmic (eye) B ID eye 12/06/16 10/10/24 History drops timolol maleate 0.5 % eye drops 1 drp RIGHT EYE BID ey e drops 12/06/16 10/10/24 History brimonidine 0.15 % eye drops 1 drp ophthalmic (eye) BI D eye 03/25/22 10/10/24 History health levothyroxine 25 mcg tablet 25 mcg PO DAILY thyroid 10/11/24 History losartan 50 mg tablet 50 mg PO BID bp #180 tabs 10/11/24 Rx cholecalciferol (vitamin D3) 50 50 mcg PO BID suppleme nt 05/08/23 10/11/24 Hist ory mcg (2,000 unit) capsule mecobalamin (vitamin B12) 1,000 1,000 mcg PO DAILY sup plement 05/08/23 10/11/24 History mcg chewable tablet denosumab 60 mg/mL subcutaneous 60 mg subcut [id number] bone health 08/20/23 Unknown History syringe (Prolia) rivaroxaban 15 mg tablet (Xarelto) 15 mg PO DINNER blo od thinner #30 04/25/24 10/11/24 Rx tabs furosemide 20 mg tablet 20 mg PO QODAY PRN diuresis 06/14/24 Unknown History omeprazole 40 mg capsule,delayed 20 mg PO DAILY gerd 1 08/15/23 10/11/24 History release carvedilol 12.5 mg tablet 12.5 mg PO BID bp #180 tabs 08/17/24 10/11/24 Rx potassium chloride 10 mEq 20 meq PO DAILY 08/27/24 History capsule,extended release vibegron 75 mg tablet (Gemtesa) 75 mg PO DAILY 5 10/11/24 History hydralazine 50 mg tablet 50 mg PO TID #270 tabs 09/0510/11/24 Rx Allergy/AdvReac Type Severity Reaction Status Date / Time amantadine Allergy Rash Verified 10/11/24 11:11 cephalexin Allergy Rash Verified 10/11/24 11:11 erythromycin base Allergy Rash Verified 10/11/24 11:11 hydrochlorothiazide Allergy Rash Verified 10/11/24 11:11 Iodinated Contrast Media Allergy Rash Verified 10/11/24 11:11 nitrofurantoin (From Allergy Vomiting Verified 10/11/24 11:11 Macrobid) amlodipine (From Norvasc) AdvReac Other Verified 10/11/24 11:11 Family History Mother CAD (coronary artery disease) Father CAD (coronary artery disease) Brother CAD (coronary artery disease) Sister CAD (coronary artery disease) Surgical History History of cardiac catheterization Hx of esophagogastroduodenoscopy History of colonoscopy History of hysteroscopy H/O hernia repair Tubal ligation status History of left heart catheterization (02/05/18) s/p left wrist ORIF Social History household members: none housing: apartment number of children: 4 Smoking Status: Former smoker quit date: 06/29/76 alcohol intake: never substance use type: does not use caffeine: Yes (Occasionally) ROS <YECENIA Muller - Last Filed: 10/11/24 14:00> ROS ED ROS Narrative Constitutional: Negative for fever, chills, weight loss, weakness Eyes: Negative for vision loss, vision change, double vision ENT: Negative for any sore throat, ear pain, congestion Cardiovascular: Negative for any palpitations. Positive chest pain, palpitations Respiratory: Negative for any sputum production, hemoptysis, dyspnea, dyspnea onexertion, orthopnea. Positive for cough Gastrointestinal: Negative for any abdominal pain, nausea, vomiting, diarrhea, constipation, blood in stool, blood in vomit : Negative for any urinary frequency, dysuria, retention, blood in urine Muscle skeletal: Negative for any neck pain, back pain Neurological: Negative for any headache, syncope, dizziness Skin: Negative for any rashes, itching, abrasions, lacerations Psychiatric: Negative for any depression, anxiety, stress, suicidal ideation, homicidal ideation Hematologic: Negative for any excessive bruising, easy bleeding EXAM <YECENIA Muller - Last Filed: 10/11/24 14:00> Physical Exam Narrative Exam Narrative: Vital signs reviewed. Patient states he feels generally well at this time. Heart rate is rapid HEET: Head normocephalic atraumatic, TMs clear bilaterally. Posterior pharynx is clear, moist mucous membranes. Nares clear bilaterally. Neck: Supple with no lymphadenopathy or tenderness. No signs of meningismus. Cardiac: tachycardic irregular rate, no murmurs gallops or rubs, equal peripheral pulses bilaterally. Respiratory: Patient did have some rhonchorous breath sounds in the right mid, lower lobe, diminished in bilateral bases, no chest tenderness. Abdomen: Soft, nontender, nondistended. No abdominal bruit or pulsatile masses. No hepatosplenomegaly Extremities: No peripheral edema, no signs of gross trauma or deformity. Activefull range of motion of all extremities. Neuro: Cranial nerves II through XII intact, no focal neurological deficits. Skin: Clean dry and intact with no rash, purpura, petechiae, vesicles or pustules. Backs/flank: No CVA tenderness, no midline spinal tenderness, no deformity. Psych: Normal mood and affect. No SI, HI or acute psychosis. Const Vital Signs: 10/11/24 11:08 10/11/24 11:40 10/11/24 11:40 Temperature 97.7 F L Temperature Source Oral Pulse Rate 128 H Respiratory Rate 16 Respiratory Effort Normal Non-Labored Blood Pressure 94/58 L Blood Pressure Mean 70 Pulse Ox 97 Oxygen Delivery Method Room Air Room Air 10/11/24 12:07 10/11/24 13:00 10/11/24 14:00 Temperature Temperature Source Pulse Rate 108 H 115 H 91 Respiratory Rate 18 20 H 18 Respiratory Effort Blood Pressure 116/72 102/45 L 123/91 H Blood Pressure Mean 86 64 101 Pulse Ox 97 98 97 Oxygen Delivery Method Room Air Room Air Room Air Positive well nourished and well developed General Appearance ED: well developed <Dr. Vincent Chan MD - Last Filed: 10/11/24 15:44> Physical Exam Const Vital Signs: 10/11/24 11:08 10/11/24 11:40 10/11/24 11:40 Temperature 97.7 F L Temperature Source Oral Pulse Rate 128 H Respiratory Rate 16 Respiratory Effort Normal Non-Labored Blood Pressure 94/58 L Blood Pressure Mean 70 Pulse Ox 97 Oxygen Delivery Method Room Air Room Air 10/11/24 12:07 10/11/24 13:00 10/11/24 14:00 Temperature Temperature Source Pulse Rate 108 H 115 H 91 Respiratory Rate 18 20 H 18 Respiratory Effort Blood Pressure 116/72 102/45 L 123/91 H Blood Pressure Mean 86 64 101 Pulse Ox 97 98 97 Oxygen Delivery Method Room Air Room Air Room Air MDM <YECENIA Muller - Last Filed: 10/11/24 14:00> MDM Lab Data Labs: Laboratory Results - last 24 hr 10/11/24 10/11/24 10/11/24 11:15 11:30 11:55 WBC 6.8 RBC 3.31 L Hgb 10.7 L Hct 31.6 L MCV 95.5 MCH 32.3 H MCHC 33.9 RDW Std Deviation 45.2 H RDW Coeff of Broderick 13.1 Plt Count 199 MPV 10.2 Immature Gran % (Auto) 0.300 Neut % (Auto) 70.8 H Lymph % (Auto) 15.2 L Jones % (Auto) 9.6 Eos % (Auto) 3.7 Baso % (Auto) 0.4 Absolute Neuts (auto) 4.8 Absolute Lymphs (auto) 1.04 Nucleated RBC % 0 PT 20.7 H INR 1.7 Sodium 134 Potassium 4.1 Chloride 105 Carbon Dioxide 17.4 L Anion Gap 12 BUN 28 H Creatinine 1.70 H Estim Creat Clear Calc 20.52 L Est GFR (MDRD) Non-Af 29 L BUN/Creatinine Ratio 16.2 Glucose 117 H Calcium 8.9 Magnesium 1.7 Troponin T High Sens 82 H* TSH 2.150 Urine Color Yellow Urine Clarity Sl. Cloudy Urine pH 6.0 Ur Specific [place] 1.015 Urine Protein 30 H Urine Glucose (UA) Normal Urine Ketones Negative Urine Occult Blood Negative Urine Nitrite Negative Urine Bilirubin Negative Urine Urobilinogen Normal Ur Leukocyte Esterase Negative Urine RBC 0 SEEN Urine WBC 0 SEEN Ur Squamous Epith Cells 0-5 SEEN Urine Bacteria 0 SEEN Urine Mucus 0 SEEN Radiography Diagnostic Testing: Clinical Impression(s) from Imaging Studies Chest X-Ray 10/11/24 11:15 IMPRESSION: Borderline cardiomegaly. The lungs are clear. Reading Location: [place] [address] EKG Atrial fibrillation: Attestation: I personally reviewed and interpreted this EKG as follows: Interpretation: Atrial Fibrillation Comments: Atrial fibrillation, rate of 133 bpm, QRS duration 80 ms, no acute ST elevation, no acute infarct noted. Treatment and Re-Evaluation :: Differential diagnosis includes however is not limited to: A-fib with RVR, PE, electrode abnormality, hyperthyroidism, hypothyroidism, medication noncompliance, ACS, NV Patient is tachycardic, patient is in no obvious distress. Presenting to the emergency department for complaints of chest pain, palpitations, fast heart rate. Patient does seem to be in atrial fibrillation is uncontrolled at a rate of 133. Patient received cardiac workup, thyroid as well as urinalysis, chest x-ray. Secondary to the patient's concern for cough, COVID-19 and influenza test we ordered. Chest x-ray will be ordered to ensure there is no pneumonia, fluid overload. All radiologic examinations were read, reviewed by the emergency department attending. From these reads, a plan of care will be put inplace. Patient given IV fluids, as well as IV Cardizem. Patient will need to be reevaluated Patient CBC shows a stable anemia patient's PT is a 20.7, INR 1.7. Patient's chemistries show a creatinine of 1.7 this is baseline, patient is anywhere between 2.1-1.5. Patient's troponin initially was 82 a repeat will be drawn. Patient likely need to be admitted to hospital for secondary to chest pain, TSH is with in normal limits at 2.15. Patient responded well to the Cardizem, patient's heart rate is now between 105 and 110. Blood pressure still slightly soft. Patient will be admitted to hospital. Will reach out to cardiology. Patient be given digoxin as well as Cardizem drip. Patient will be admitted to PCU full <Dr. Vincent Chan MD - Last Filed: 10/11/24 15:44> [facility] [place] MDM Narrative Medical decision making narrative: I have personally performed a face to face assessment of the patient and have reviewed the MOSHE Note. I performed a substantive portion of the visit including all aspects of the following. My welch findings include: History is In the middle of the night with burning chest discomfort, no palpitations, dyspnea, lightheadedness, syncope or near syncope, diaphoresis. Still has the burning. Has had a cough for about a week. Nonproductive, no fevers or chills. Also recently had a UTI 1 or 2 weeks ago, she was put on Macrobid that she did not tolerate after multiple days, was switched to Cipro, finished that then the symptoms returned with pressure and frequency, so then was put back on Macrobid and then switched again to Bactrim, which she only tooksome of it and the culture came back negative according to daughter. This was all at a different facility. She follows with our cardiology group. She thinksshe is usually not in A-fib, and her records confirm a history of paroxysmal atrial fibrillation. Exam is rapid irregular pulse, keenly alert and oriented x 3. Lungs clear to auscultation throughout. No pedal edema. Good pulses distally all 4 extremities. Medical Decison Making chest x-ray 1 view my interpretation shows no pneumonia. She does not have a leukocytosis, consistent with this, especially with all the antibiotic she has had lately, I would not expect her to have a bacterial pneumonia. Her EKG appears to show rapid A-fib with no acute injury pattern. Obtained labs and troponin measurements while giving her a fluid bolus and attempt to bring HR down with Cardizem. Her initial troponin is elevated at 82. She does have renal insufficiency. She has not had any chest discomfort since 4 AM. We brought her rate down to the 110-120 range, currently asymptomatic, blood pressures are soft but 102/45 after Cardizem 15 mg. Given that she was having chest pain, elevated troponin could be early evidence of an NSTEMI or could simply be related to her having RVR for the past 10 hours or so. Plan is for admission. Cardiology on page, we are going to start on Cardizem drip and give her a bolus of digoxin and more IV fluids. Other additions or changes: [None] Lab Data Labs: Laboratory Results - last 24 hr 10/11/24 10/11/24 10/11/24 11:15 11:30 11:55 WBC 6.8 RBC 3.31 L Hgb 10.7 L Hct 31.6 L MCV 95.5 MCH 32.3 H MCHC 33.9 RDW Std Deviation 45.2 H RDW Coeff of Broderick 13.1 Plt Count 199 MPV 10.2 Immature Gran % (Auto) 0.300 Neut % (Auto) 70.8 H Lymph % (Auto) 15.2 L Jones % (Auto) 9.6 Eos % (Auto) 3.7 Baso % (Auto) 0.4 Absolute Neuts (auto) 4.8 Absolute Lymphs (auto) 1.04 Nucleated RBC % 0 PT 20.7 H INR 1.7 Sodium 134 Potassium 4.1 Chloride 105 Carbon Dioxide 17.4 L Anion Gap 12 BUN 28 H Creatinine 1.70 H Estim Creat Clear Calc 20.52 L Est GFR (MDRD) Non-Af 29 L BUN/Creatinine Ratio 16.2 Glucose 117 H Calcium 8.9 Magnesium 1.7 Troponin T High Sens 82 H* TSH 2.150 Urine Color Yellow Urine Clarity Sl. Cloudy Urine pH 6.0 Ur Specific [place] 1.015 Urine Protein 30 H Urine Glucose (UA) Normal Urine Ketones Negative Urine Occult Blood Negative Urine Nitrite Negative Urine Bilirubin Negative Urine Urobilinogen Normal Ur Leukocyte Esterase Negative Urine RBC 0 SEEN Urine WBC 0 SEEN Ur Squamous Epith Cells 0-5 SEEN Urine Bacteria 0 SEEN Urine Mucus 0 SEEN Radiography Diagnostic Testing: Clinical Impression(s) from Imaging Studies Chest X-Ray 10/11/24 11:15 IMPRESSION: Borderline cardiomegaly. The lungs are clear. Reading Location: [facility] Management Discussion w/another healthcare provider: Hospitalist and [employer] Concierge (cardiology [place] - agrees w/ tx for now and will see on floor) <Dr. Vincent Chan MD - Last Filed: 10/11/24 15:44> Critical Care Time Critical Care Time: Yes Critical care time (excluding procedures): 30-74 minutes (34 min), Including time spent:, Discussing w/Patient &/or Family/Insole Tack Puller Hand, Discussing w/Consultants, Arranging Admission or Transfer and Performing Direct Patient Care at Bedside Discharge Plan Dx/Rx/DC Orders Clinical Impression: Chest pain, Paroxysmal atrial fibrillation, Chronic kidney disease, Elevated troponin, Atrial fibrillation with RVR Disposition Disposition: Acute Care Hospital [facility] Discharge Date/Time: 10/11/24 15:31 What to do if you have Problems For any increased pain, shortness of breath, bleeding, nausea or vomiting, chest pain, or any unexpected problems, contact your Primary Care Provider. Call [facility] ([phone]) or report to the closest Emergency Room. Call 911 if necessary. 10/11/24 1400 <Electronically signed by Brigido KEENE> Cosigner Signature (if applicable): 10/11/24 1544 <Electronically signed by Vincent Chan MD> CC: Dr. Anay Schuler MD ~ Signed [facility] Work Phone: [phone] [phone] History and physical note Author Inocencia Long [facility] Note Date/Time October 11, 2024 2:3 0pm [facility] Medical Records Department [address] [place] [address] [place] [address] H&P Exam - Hospitalist 10/11/24 1328 MR#: [id number] Acct: [id number] Name: REINIER ELIZABETH Rep #:[id number] : 1935 88 From: Inocencia Long MD PCP: Dr. Anay Schuler MD Status:REG E R Location: ED HPI - General General Date of Admission: 10/11/24 Date of Service: 10/11/24 Chief Complaint: Palpitations/racing heart/chest pain/burning. HPI Narrative The patient is an 88 y/o F w/ PMHx: Former tobacco use, Hypothyroidism, GERD, CKD stage III unclear subtype per GFR trending although occasional appears stageIV, Chronic anemia, HLF, HTN, PAF who [facility] with onset of racing heart, palpitations, irregular heart rate sensation with chest burning which has been persistent on day of presentation recently reporting that she has had several recent issues with urinary tract infections with treatment with Macrobid, Cipro as well as Bactrim with the last intake of antibiotics 2 days previous with onset at 12 AM this morning the symptoms as noted with palpitation/racing heart and chest burning sensation lasting until 4 AM prompting ED evaluation. She notes she did stop the Bactrim the day prior as she was under the impression it may have been making her cough. Patient notes that the chest discomfort described as a burning sensation was midsternal with no radiation and rated it when it was occurring 8-9 out of 10 inseverity but it did completely subside at 4 AM and has not returned since. She currently can still feel that her heart is not beating regularly and is faster than it should be. Workup in the ED included T97.7, heart 128, BP 94/58, respiratory rate 16, 97% on room air with most recent repeat vitals heart rate 115, BP 102/45, respiratory rate 20, 98% on room air, CBC with WBC 6.8, hemoglobin 10.7, MCV 95.5, platelet 199 without marked shift, coags with INR 1.7, PT 20.7, BMP with, Dex at 17.4, anion gap 12, BUN/creatinine 28/1.70, GFR 29, glucose 117, troponin 82, TSH 2.150, urinalysis not marked appearing, chest x-ray with borderline cardiomegaly with no acute cardiopulmonary findings, EKG atrial fibrillation with RVR. In the ED patient ministered 1 L normal saline and diltiazem 50 mg IV bolus x 1. ED physician noted to get paged and was awaiting to discuss case with Dr. Kingston. In the interim given patient persistent RVR additionally administered digoxin 250 mcg IV x 1 and placed on a low-dose Cardizem drip as well as ministered an additional 500 cc IV fluid normal saline. [facility] Medical History Hypothyroidism (acquired) Wears glasses Post-menopausal Thyroid disease Gastric reflux Former smoker History of edema History of echocardiogram History of stress test Cardiology follow-up encounter History of CHF (congestive heart failure) Paroxysmal atrial fibrillation Stage 3b chronic kidney disease (CKD) Elevated liver enzymes CKD (chronic kidney disease) stage 4, GFR 15-29 ml/min Stage 3b chronic kidney disease (CKD) Lymphedema of both lower extremities Bilateral lower extremity edema Dyspnea on exertion Pneumonia (03/19/22) Essential hypertension Atrial fibrillation, new onset Positive occult stool blood test Umbilical hernia Osteoporosis Hemorrhage of anus and rectum Glaucoma Acquired keratoderma Anemia Syncope Essential hypertension Sweating Palpitations Near syncope Hernia HLD (hyperlipidemia) Home Medications ?Medication ?Instructions ?Recorded ?Last Taken ?Type atorvastatin 20 mg tablet 20 mg PO QODAY Cholesterol 0 12/06/16 07/12/23 09:00 History latanoprost 0.005 % eye drops 1 drp ophthalmic (eye) B ID eye 12/06/16 10/10/24 History drops timolol maleate 0.5 % eye drops 1 drp RIGHT EYE BID ey e drops 12/06/16 10/10/24 History brimonidine 0.15 % eye drops 1 drp ophthalmic (eye) BI D eye 03/25/22 10/10/24 History health levothyroxine 25 mcg tablet 25 mcg PO DAILY thyroid 10/11/24 History losartan 50 mg tablet 50 mg PO BID bp #180 tabs 10/11/24 Rx cholecalciferol (vitamin D3) 50 50 mcg PO BID suppleme nt 05/08/23 10/11/24 History mcg (2,000 unit) capsule mecobalamin (vitamin B12) 1,000 1,000 mcg PO DAILY sup plement 05/08/23 10/11/24 History mcg chewable tablet denosumab 60 mg/mL subcutaneous 60 mg subcut [id number] bone health 08/20/23 Unknown History syringe (Prolia) rivaroxaban 15 mg tablet (Xarelto) 15 mg PO DINNER blo od thinner #30 04/25/24 10/11/24 Rx tabs furosemide 20 mg tablet 20 mg PO QODAY PRN diuresis 06/14/24 Unknown History omeprazole 40 mg capsule,delayed 20 mg PO DAILY gerd 1 08/15/23 10/11/24 History release carvedilol 12.5 mg tablet 12.5 mg PO BID bp #180 tabs 08/17/24 10/11/24 Rx potassium chloride 10 mEq 20 meq PO DAILY 08/27/24 History capsule,extended release vibegron 75 mg tablet (Gemtesa) 75 mg PO DAILY 5 10/11/24 History hydralazine 50 mg tablet 50 mg PO TID #270 tabs 09/0510/11/24 Rx Allergy/AdvReac Type Severity Reaction Status Date / Time amantadine Allergy Rash Verified 10/11/24 11:11 cephalexin Allergy Rash Verified 10/11/24 11:11 erythromycin base Allergy Rash Verified 10/11/24 11:11 hydrochlorothiazide Allergy Rash Verified 10/11/24 11:11 Iodinated Contrast Media Allergy Rash Verified 10/11/24 11:11 nitrofurantoin (From Allergy Vomiting Verified 10/11/24 11:11 Macrobid) amlodipine (From Norvasc) AdvReac Other Verified 10/11/24 11:11 Family History Mother CAD (coronary artery disease) Father CAD (coronary artery disease) Brother CAD (coronary artery disease) Sister CAD (coronary artery disease) Surgical History History of cardiac catheterization Hx of esophagogastroduodenoscopy History of colonoscopy History of hysteroscopy H/O hernia repair Tubal ligation status History of left heart catheterization (02/05/18) s/p left wrist ORIF Social History household members: none housing: apartment number of children: 4 Smoking Status: Former smoker quit date: 06/29/76 alcohol intake: never substance use type: does not use caffeine: Yes (Occasionally) ROS ROS Narrative Admission Review of Systems: CONSTITUTIONAL: No weight loss, fever, chills, weakness or fatigue. HEENT: Eyes: No visual loss, blurred vision, double vision or yellow sclerae. Ears, Nose, Throat: No hearing loss, sneezing, congestion, runny nose or sore throat. SKIN: No rash or itching, lesions, wounds. CARDIOVASCULAR: + Chest burning sensation, palpitation/racing heart. No orthopnea, syncopal events. RESPIRATORY: No shortness of breath, cough or sputum, wheezing, hemoptysis. GASTROINTESTINAL: No anorexia, nausea, vomiting or diarrhea, abdominal pain, melena, BRBPR. GENITOURINARY: No dysuria, frequency, urgency or retention. NEUROLOGICAL: No headache, dizziness, syncope, paralysis, ataxia, numbness or tingling in the extremities, focal weakness, change in bowel or bladder control,seizure. MUSCULOSKELETAL: + muscle, back pain, joint pain or stiffness. HEMATOLOGIC: + Chronic anemia, easy bleeding/bruising. LYMPHATICS: No enlarged nodes. No history of splenectomy. PSYCHIATRIC: No history of depression or anxiety. ENDOCRINOLOGIC: No reports of sweating, cold or heat intolerance. No polyuria orpolydipsia. ALLERGIES: No history of asthma, hives, eczema or rhinitis. Vital Signs Vital Signs Vital Signs: 10/11/24 11:08 10/11/24 11:40 10/11/24 11:40 Temperature 97.7 F L Temperature Source Oral Pulse Rate 128 H Respiratory Rate 16 Respiratory Effort Normal Non-Labored Blood Pressure 94/58 L Blood Pressure Mean 70 Pulse Ox 97 Oxygen Delivery Method Room Air Room Air 10/11/24 12:07 10/11/24 13:00 Temperature Temperature Source Pulse Rate 108 H 115 H Respiratory Rate 18 20 H Respiratory Effort Blood Pressure 116/72 102/45 L Blood Pressure Mean 86 64 Pulse Ox 97 98 Oxygen Delivery Method Room Air Room Air Weight Weight: 141 lb 9.6 oz Body Mass Index (BMI) 25.9 Physical Exam Narrative Physical Examination: General: Awake, alert, oriented x 3 and cooperative, seated upright in the ED bed, denies any current chest discomfort/burning, notes she can still feel that her heart is racing fast. Skin: Normal color, normal turgor, no icterus, no cyanosis except occasional stage ecchymoses, abrasion. HEENT: AT/NC, EOMI, PERRLA, MMM, no carotid bruits or JVD noted. Lungs: Mildly diminished, greater bases, mildly increased respiratory rate but no distress, no rales, ronchi or wheezing. Heart: Irregular irregular; no gallop, rub audible. Abdomen: Soft, NTTP, ND, distant normal BS, n appreciated o HSM. Extremities: No cyanosis, no clubbing, no marked distal edema. Neurological: Patient awake, alert, oriented as noted, cognitive function intact; pupils equally reactive to light and accommodation, cranial nerves grossnormal, moving all 4 extremities, no focal deficits, strength moderately globally decreased secondary to acute presentation complaints Psychiatric: Affect appears mildly flat, fatigued, no acute evidence of depressive or anxiety feelings. Results Lab / Micro Data 10/11/24 11:15 10/11/24 11:30 Labs: Laboratory Results - last 24 hr 10/11/24 11:15: WBC 6.8, RBC 3.31 L, Hgb 10.7 L, Hct 31.6 L, MCV 95.5, MCH 32.3 H, MCHC 33.9, RDW Std Deviation 45.2 H, RDW Coeff of Broderick 13.1, Plt Count 199, MPV 10.2, Immature Gran % (Auto) 0.300, Neut % (Auto) 70.8 H, Lymph % (Auto) 15.2 L, Jones % (Auto) 9.6, Eos % (Auto) 3.7, Baso % (Auto) 0.4, Absolute Neuts (auto) 4.8, Absolute Lymphs (auto) 1.04, Nucleated RBC % 0 10/11/24 11:30: PT 20.7 H, INR 1.7, Sodium 134, Potassium 4.1, Chloride 105, Carbon Dioxide 17.4 L, Anion Gap 12, BUN 28 H, Creatinine 1.70 H, Estim Creat Clear Calc 20.52 L, Est GFR (MDRD) Non-Af 29 L, BUN/Creatinine Ratio 16.2, Glucose 117 H, Calcium 8.9, Troponin T High Sens 82 H*, TSH 2.150 10/11/24 11:55: Urine Color Yellow, Urine Clarity Sl. Cloudy, Urine pH 6.0, Ur Specific [place] 1.015, Urine Protein 30 H, Urine Glucose (UA) Normal, Urine Ketones Negative, Urine Occult Blood Negative, Urine Nitrite Negative, Urine Bilirubin Negative, Urine Urobilinogen Normal, Ur Leukocyte Esterase Negative, Urine RBC 0 SEEN, Urine WBC 0 SEEN, Ur Squamous Epith Cells 0-5 SEEN, Urine Bacteria 0 SEEN, Urine Mucus 0 SEEN Micro: Microbiology 10/11/24 11:55 Mucosa - Nose SARS-CoV-2, Influenza & RSV (PCR) - Final Imaging Radiology Impression Chest X-Ray 10/11/24 11:15 IMPRESSION: Borderline cardiomegaly. The lungs are clear. Reading Location: [facility] Assessment & Plan Assessment/Plan (1) Atrial fibrillation with RVR: (2) Elevated troponin: PLAN: Plan The patient is an 88 y/o F w/ PMHx: Former tobacco use, Hypothyroidism, GERD, CKD stage III unclear subtype per GFR trending although occasional appears stageIV, Chronic anemia, HLF, HTN, PAF who [facility] with onset of racing heart, palpitations, irregular heart rate sensation with chest burning which has been persistent on day of presentation recently reporting that she has had several recent issues with urinary tract infections with treatment with Macrobid, Cipro as well as Bactrim with the last intake of antibiotics 2 days previous with onset at 12 AM this morning the symptoms as noted with palpitation/racing heart and chest burning sensation lasting until 4 AM prompting ED evaluation. #1. Paroxsymal atrial fibrillation w/ RVR with associated indeterminate enzyme,unclear significance but suspected secondary to persistent RVR: EKG in ED w/ atrial fibrillation w/ RVR. Patient administered Cardizem bolus and 1 L normal saline bolus in ED. Will admit to PCU, maintain on telemetry, obtain cardiac enzyme serial set, obtain magnesium level, TSH normal level, most recent echocardiogram 07/13/2023 with EF 60 to 65%, normal LV systolic function, mild TR, mild MR not markedly changed from previous. Patient did improve with Cardizem bolus in the ED, eventually transition to Cardizem drip with an additional dose of 2050 NegGram IV x 1 digoxin administered. Will continue Cardizem drip, attempt also dose with Coreg overlap within the next 24 hours however will change per cardiology discretion has been consulted per ED and willcontinue, continue home Xarelto regimen. #2. Patient reported recent urinary tract infections: Urinalysis is unremarkable, unclear what organisms have been treated but from discussion she has been through several antibiotics including most recently Bactrim, will stop this is no obvious infectious concerns on urinalysis. If she continues to have symptoms may benefit from outpatient urology follow-up #3. HFpEF (presumed per most recent echo): Most recent echo as noted above withEF 60-65%, will judiciously hydrate as noted above, will continue as BP allows given prior sedation of the right agents as noted with Coreg, Lasix, hydralazine, losartan, continue statin therapy, continue Xarelto. #4. Chronic Kidney Disease Stage III per GFR trending unclear subtype although sometimes appears to be stage IV, uncertain: Admission BUN/Cr 28/1.70, GFR 29 however primarily seems to be more consistent with stage III from review of trending but occasionally stage IV, baseline renal function 1.3-1.8 however sometimes vacillates up to 2.1 but this may be acute, unclear repeat BMP in AM. #5. Chronic normocytic anemia: Admission hemoglobin 10.7, MCV 95.5, baseline hemoglobin primarily 9-10 range, stable, continue to trend. #6. Hypertension: Patient normally on losartan, Lasix, hydralazine, Coreg, willcontinue but may need to prioritize Cardizem drip if necessary, will dose with Coreg x 1 now and continue to monitor, as needed IV hydralazine. #7. Hyperlipidemia: Continue home statin regimen. AM FLP. #8. Hypothyroidism: Will continue patient home levothyroxine regimen, TSH per ED normal range. #9. Former tobacco use: Encourage continued tobacco cessation. #10. GERD: Will continue patient on PPI. #11. DVT prophylaxis: Continue patient home Xarelto regimen. #12. CODE status: Patient JENNIFER is her daughter Murtaza who is present and [employer] is currently in place. Discussed CODE status at length including differencebetween FULL code, DNR-CCA and DNR-CC status. Following discussions about the differences in these status, requested eventually DNR CCA, with intubation with several examples given and did discuss that if she changed her mind certainly following her and her daughter discussing it further that we could adjust this CODE STATUS accordingly. Advanced Care Planning Face to Face Time: 16 minutes. Charges/Coding Visit Charges Inpatient E&M: 50549 Init Hosp L3 Procedures Hospitalists Procedures: 29606 Advncd Care Plan 30 Min 10/11/24 1430 <Electronically signed by Inocencia Long MD> Cosigner Signature (if applicable): CC: Dr. Inocencia Long MD; Dr. Anay Schuler MD~ Signed [facility] Work Phone: 1(857) 843-204704-15-2025 Evaluation note* Diagnosis Onset Date Resolution Status Admit Date Atrial fibrillation with RVR acute October 11, 2024 2:08pm CHF (congestive heart failure) acute October 11, 2024 2:08pm Elevated troponin acute September 272024 2:08pm Paroxysmal atrial fibrillation acute October 11, 2024 2:08pm Chronic kidney disease chronic Ap ril 2024 2:08pm Essential hypertension chronic Ap ril 2024 2:08pm [facility] Work Phone: 1(380) 745-984804-15-2025 Evaluation note* Diagnosis Onset Date Resolution Status Admit Date CHF (congestive heart failure) acute October 11, 2024 2:08pm Elevated troponin acute September 272024 2:08pm Paroxysmal atrial fibrillation acute October 11, 2024 2:08pm Chronic kidney disease chronic Ap ril 2024 2:08pm Essential hypertension chronic Ap ril 2024 2:08pm Atrial fibrillation with RVR resolve d October 11, 2024 2:08pm CHF (congestive heart failure) acute October 24, 2024 2:16pm HLD (hyperlipidemia) acute Apri l 2024 2:16pm Essential hypertension chronic Ap ril 2024 2:16pm Atrial fibrillation with RVR inactiv e October 24, 2024 2:16pm GERI (acute kidney injury) acute October 30, 2024 5:20pm CHF (congestive heart failure) acute October 30, 2024 5:20pm Paroxysmal atrial fibrillation acute October 30, 2024 5:20pm Essential hypertension chronic Ma y 2024 5:20pm [facility] Work Phone: 1(221) 875-309404-15-2025 Evaluation note* Diagnosis Onset Date Resolution Status Admit Date CHF (congestive heart failure) acute October 11, 2024 2:08pm Elevated troponin acute September 272024 2:08pm Paroxysmal atrial fibrillation acute October 11, 2024 2:08pm Chronic kidney disease chronic Ap ril 2024 2:08pm Essential hypertension chronic Ap ril 2024 2:08pm Atrial fibrillation with RVR resolve d October 11, 2024 2:08pm CHF (congestive heart failure) acute October 24, 2024 2:16pm HLD (hyperlipidemia) acute Apri l 2024 2:16pm Essential hypertension chronic Ap ril 2024 2:16pm Atrial fibrillation with RVR inactiv e October 24, 2024 2:16pm GERI (acute kidney injury) acute October 30, 2024 5:20pm CHF (congestive heart failure) acute October 30, 2024 5:20pm Paroxysmal atrial fibrillation acute October 30, 2024 5:20pm Chronic kidney disease chronic Ma y 2024 5:20pm Essential hypertension chronic Ma y 2024 5:20pm [facility] Work Phone: 1(673) 626-483304-15-2025 Evaluation note* Diagnosis Onset Date Resolution Status Admit Date CHF (congestive heart failure) acute October 11, 2024 2:08pm Elevated troponin acute September 272024 2:08pm Paroxysmal atrial fibrillation acute October 11, 2024 2:08pm Essential hypertension chronic Ap ril 2024 2:08pm Atrial fibrillation with RVR resolve d October 11, 2024 2:08pm Chronic kidney disease inactive Ap ril 2024 2:08pm CHF (congestive heart failure) acute October 24, 2024 2:16pm HLD (hyperlipidemia) acute Apri l 2024 2:16pm Essential hypertension chronic Ap ril 2024 2:16pm Atrial fibrillation with RVR inactiv e October 24, 2024 2:16pm CHF (congestive heart failure) acute October 30, 2024 5:20pm Paroxysmal atrial fibrillation acute October 30, 2024 5:20pm Essential hypertension chronic Ma y 2024 5:20pm GERI (acute kidney injury) resolved October 30, 2024 5:20pm Chronic kidney disease inactive Ma y 2024 5:20pm [facility] Work Phone: 1([phone]) 234-774904-15-2025 Evaluation note* Diagnosis Onset Date Resolution Status Admit Date CHF (congestive heart failure) acute October 11, 2024 2:08pm Elevated troponin acute September 272024 2:08pm Paroxysmal atrial fibrillation acute October 11, 2024 2:08pm Essential hypertension chronic Ap ril 2024 2:08pm Atrial fibrillation with RVR resolve d October 11, 2024 2:08pm Chronic kidney disease inactive Ap ril 2024 2:08pm CHF (congestive heart failure) acute October 24, 2024 2:16pm HLD (hyperlipidemia) acute Apri l 2024 2:16pm Essential hypertension chronic Ap ril 2024 2:16pm Atrial fibrillation with RVR inactiv e October 24, 2024 2:16pm CHF (congestive heart failure) acute October 30, 2024 5:20pm Paroxysmal atrial fibrillation acute October 30, 2024 5:20pm Essential hypertension chronic Ma y 2024 5:20pm GERI (acute kidney injury) resolved October 30, 2024 5:20pm Chronic kidney disease inactive Ma y 2024 5:20pm Osteoporosis chronic November 08 1:42pm CHF (congestive heart failure) acute November 11, 2024 1:54pm HLD (hyperlipidemia) acute November 11, 2024 1:54pm Essential hypertension chronic Ma y 2024 1:54pm Atrial fibrillation with RVR inactiv e November 11, 2024 1:54pm [facility] Work Phone: 1([phone]) 194-652204-15-2025 Evaluation note* Diagnosis Onset Date Resolution Status Admit Date CHF (congestive heart failure) acute October 11, 2024 2:08pm Elevated troponin acute September 272024 2:08pm Paroxysmal atrial fibrillation acute October 11, 2024 2:08pm Essential hypertension chronic Ap ril 2024 2:08pm Atrial fibrillation with RVR resolve d October 11, 2024 2:08pm Chronic kidney disease inactive Ap ril 2024 2:08pm CHF (congestive heart failure) acute October 24, 2024 2:16pm HLD (hyperlipidemia) acute Apri l 2024 2:16pm Essential hypertension chronic Ap ril 2024 2:16pm Atrial fibrillation with RVR inactiv e October 24, 2024 2:16pm CHF (congestive heart failure) acute October 30, 2024 5:20pm Paroxysmal atrial fibrillation acute October 30, 2024 5:20pm Essential hypertension chronic Ma y 2024 5:20pm GERI (acute kidney injury) resolved October 30, 2024 5:20pm Chronic kidney disease inactive Ma y 2024 5:20pm Osteoporosis chronic November 08 1:42pm CHF (congestive heart failure) acute November 11, 2024 1:54pm HLD (hyperlipidemia) acute November 11, 2024 1:54pm Essential hypertension chronic Ma y 2024 1:54pm Atrial fibrillation with RVR inactiv e November 11, 2024 1:54pm CHF (congestive heart failure) acute November 25, 2024 1:41pm HLD (hyperlipidemia) acute November 25, 2024 1:41pm Essential hypertension chronic Ma y 2024 1:41pm Atrial fibrillation with RVR inactiv e November 25, 2024 1:41pm [facility] Work Phone: 1([phone]) 263-511404-15-2025 Evaluation note* Diagnosis Onset Date Resolution Status Admit Date CHF (congestive heart failure) acute October 11, 2024 2:08pm Elevated troponin acute September 272024 2:08pm Paroxysmal atrial fibrillation acute October 11, 2024 2:08pm Essential hypertension chronic Ap ril 2024 2:08pm Atrial fibrillation with RVR resolve d October 11, 2024 2:08pm Chronic kidney disease inactive Ap ril 2024 2:08pm CHF (congestive heart failure) acute October 24, 2024 2:16pm HLD (hyperlipidemia) acute Apri l 2024 2:16pm Essential hypertension chronic Ap ril 2024 2:16pm Atrial fibrillation with RVR inactiv e October 24, 2024 2:16pm CHF (congestive heart failure) acute October 30, 2024 5:20pm Paroxysmal atrial fibrillation acute October 30, 2024 5:20pm Essential hypertension chronic Ma y 2024 5:20pm GERI (acute kidney injury) resolved October 30, 2024 5:20pm Chronic kidney disease inactive Ma y 2024 5:20pm Osteoporosis chronic November 08 1:42pm CHF (congestive heart failure) acute November 11, 2024 1:54pm HLD (hyperlipidemia) acute November 11, 2024 1:54pm Essential hypertension chronic Ma y 2024 1:54pm Atrial fibrillation with RVR inactiv e November 11, 2024 1:54pm CHF (congestive heart failure) acute November 25, 2024 1:41pm HLD (hyperlipidemia) acute November 25, 2024 1:41pm Essential hypertension chronic Ma y 2024 1:41pm Atrial fibrillation with RVR inactiv e November 25, 2024 1:41pm CHF (congestive heart failure) acute January 09, 2025 11:29am Paroxysmal atrial fibrillation acute January 09, 2025 11:29am Essential hypertension chronic Ju ly 2024 11:29am [facility] Work Phone: [phone]) 711-531604-15-2025 Discharge summary [facility] Medical Records Department [address] [place] [id number] Emergency Department Summary 10/11/24 MR#: [id number] Acct: [id number] Name: REINIER ELIZABETH Rep #:[id number] : 1935 88 From: Brigido Alejandre [employer] PCP: Dr. Anay Schuler MD Status:ADM I N Location: [place] [address] HPI History of Present Illness Chief Complaint: Chest Pain Narrative Narrative: Patient is a 88-year-old female with history of hypertension, atrial fibrillation with RVR, on Xarelto, history of irregular heartbeat, presenting tot ER department for fast heart rate, chest burning. Patient states that over the last several weeks, she has been treated with Macrobid, Cipro, as well as Bactrim. Last time she took was 2 days ago. Patient states that around 12 AM this morning, she developed chest burning with a heart rate of 136. This lastedtill 4 AM. She states that she can still feel that her heart rate is elevated. She denies any significant chest pain at this time, fever chills nausea vomiting. She stopped the Bactrim yesterday because she thinks it is making hercough. Here for evaluation. [facility] Medical History Hypothyroidism (acquired) Wears glasses Post-menopausal Thyroid disease Gastric reflux Former smoker History of edema History of echocardiogram History of stress test Cardiology follow-up encounter History of CHF (congestive heart failure) Paroxysmal atrial fibrillation Stage 3b chronic kidney disease (CKD) Elevated liver enzymes CKD (chronic kidney disease) stage 4, GFR 15-29 ml/min Stage 3b chronic kidney disease (CKD) Lymphedema of both lower extremities Bilateral lower extremity edema Dyspnea on exertion Pneumonia (03/19/22) Essential hypertension Atrial fibrillation, new onset Positive occult stool blood test Umbilical hernia Osteoporosis Hemorrhage of anus and rectum Glaucoma Acquired keratoderma Anemia Syncope Essential hypertension Sweating Palpitations Near syncope Hernia HLD (hyperlipidemia) Home Medications ?Medication ?Instructions ?Recorded ?Last Taken ?Type atorvastatin 20 mg tablet 20 mg PO QODAY Cholesterol 0 12/06/16 07/12/23 09:00 History latanoprost 0.005 % eye drops 1 drp ophthalmic (eye) B ID eye 12/06/16 10/10/24 History drops timolol maleate 0.5 % eye drops 1 drp RIGHT EYE BID ey e drops 12/06/16 10/10/24 History brimonidine 0.15 % eye drops 1 drp ophthalmic (eye) BI D eye 03/25/22 10/10/24 History health levothyroxine 25 mcg tablet 25 mcg PO DAILY thyroid 10/11/24 History losartan 50 mg tablet 50 mg PO BID bp #180 tabs 10/11/24 Rx cholecalciferol (vitamin D3) 50 50 mcg PO BID suppleme nt 05/08/23 10/11/24 Hist ory mcg (2,000 unit) capsule mecobalamin (vitamin B12) 1,000 1,000 mcg PO DAILY sup plement 05/08/23 10/11/24 History mcg chewable tablet denosumab 60 mg/mL subcutaneous 60 mg subcut [id number] bone health 08/20/23 Unknown History syringe (Prolia) rivaroxaban 15 mg tablet (Xarelto) 15 mg PO DINNER blo od thinner #30 04/25/24 10/11/24 Rx tabs furosemide 20 mg tablet 20 mg PO QODAY PRN diuresis 06/14/24 Unknown History omeprazole 40 mg capsule,delayed 20 mg PO DAILY gerd 1 08/15/23 10/11/24 History release carvedilol 12.5 mg tablet 12.5 mg PO BID bp #180 tabs 08/17/24 10/11/24 Rx potassium chloride 10 mEq 20 meq PO DAILY 08/27/24 History capsule,extended release vibegron 75 mg tablet (Gemtesa) 75 mg PO DAILY 5 10/11/24 History hydralazine 50 mg tablet 50 mg PO TID #270 tabs 09/0510/11/24 Rx Allergy/AdvReac Type Severity Reaction Status Date / Time amantadine Allergy Rash Verified 10/11/24 11:11 cephalexin Allergy Rash Verified 10/11/24 11:11 erythromycin base Allergy Rash Verified 10/11/24 11:11 hydrochlorothiazide Allergy Rash Verified 10/11/24 11:11 Iodinated Contrast Media Allergy Rash Verified 10/11/24 11:11 nitrofurantoin (From Allergy Vomiting Verified 10/11/24 11:11 Macrobid) amlodipine (From Norvasc) AdvReac Other Verified 10/11/24 11:11 Family History Mother CAD (coronary artery disease) Father CAD (coronary artery disease) Brother CAD (coronary artery disease) Sister CAD (coronary artery disease) Surgical History History of cardiac catheterization Hx of esophagogastroduodenoscopy History of colonoscopy History of hysteroscopy H/O hernia repair Tubal ligation status History of left heart catheterization (02/05/18) s/p left wrist ORIF Social History household members: none housing: apartment number of children: 4 Smoking Status: Former smoker quit date: 06/29/76 alcohol intake: never substance use type: does not use caffeine: Yes (Occasionally) ROS ROS ED ROS Narrative Constitutional: Negative for fever, chills, weight loss, weakness Eyes: Negative for vision loss, vision change, double vision ENT: Negative for any sore throat, ear pain, congestion Cardiovascular: Negative for any palpitations. Positive chest pain, palpitations Respiratory: Negative for any sputum production, hemoptysis, dyspnea, dyspnea onexertion, orthopnea. Positive for cough Gastrointestinal: Negative for any abdominal pain, nausea, vomiting, diarrhea, constipation, blood in stool, blood in vomit : Negative for any urinary frequency, dysuria, retention, blood in urine Muscle skeletal: Negative for any neck pain, back pain Neurological: Negative for any headache, syncope, dizziness Skin: Negative for any rashes, itching, abrasions, lacerations Psychiatric: Negative for any depression, anxiety, stress, suicidal ideation, homicidal ideation Hematologic: Negative for any excessive bruising, easy bleeding EXAM Physical Exam Narrative Exam Narrative: Vital signs reviewed. Patient states he feels generally well at this time. Heart rate is rapid HEET: Head normocephalic atraumatic, TMs clear bilaterally. Posterior pharynx is clear, moist mucous membranes. Nares clear bilaterally. Neck: Supple with no lymphadenopathy or tenderness. No signs of meningismus. Cardiac: tachycardic irregular rate, no murmurs gallops or rubs, equal peripheral pulses bilaterally. Respiratory: Patient did have some rhonchorous breath sounds in the right mid, lower lobe, diminished in bilateral bases, no chest tenderness. Abdomen: Soft, nontender, nondistended. No abdominal bruit or pulsatile masses. No hepatosplenomegaly Extremities: No peripheral edema, no signs of gross trauma or deformity. Activefull range of motionof all extremities. Neuro: Cranial nerves II through XII intact, no focal neurological deficits. Skin: Clean dry and intact with no rash, purpura, petechiae, vesicles or pustules. Backs/flank: No CVA tenderness, no midline spinal tenderness, no deformity. Psych: Normal mood and affect. No SI, HI or acute psychosis. Const Vital Signs: 10/11/24 11:08 10/11/24 11:40 10/11/24 11:40 Temperature 97.7 F L Temperature Source Oral Pulse Rate 128 H Respiratory Rate 16 Respiratory Effort Normal Non-Labored Blood Pressure 94/58 L Blood Pressure Mean 70 Pulse Ox 97 Oxygen Delivery Method Room Air Room Air 10/11/24 12:07 10/11/24 13:00 10/11/24 14:00 Temperature Temperature Source Pulse Rate 108 H 115 H 91 Respiratory Rate 18 20 H 18 Respiratory Effort Blood Pressure 116/72 102/45 L 123/91 H Blood Pressure Mean 86 64 101 Pulse Ox 97 98 97 Oxygen Delivery Method Room Air Room Air Room Air Positive well nourished and well developed General Appearance ED: well developed Physical Exam Const Vital Signs: 10/11/24 11:08 10/11/24 11:40 10/11/24 11:40 Temperature 97.7 F L Temperature Source Oral Pulse Rate 128 H Respiratory Rate 16 Respiratory Effort Normal Non-Labored Blood Pressure 94/58 L Blood Pressure Mean 70 Pulse Ox 97 Oxygen Delivery Method Room Air Room Air 10/11/24 12:07 10/11/24 13:00 10/11/24 14:00 Temperature Temperature Source Pulse Rate 108 H 115 H 91 Respiratory Rate 18 20 H 18 Respiratory Effort Blood Pressure 116/72 102/45 L 123/91 H Blood Pressure Mean 86 64 101 Pulse Ox 97 98 97 Oxygen Delivery Method Room Air Room Air Room Air MDM MDM Lab Data Labs: Laboratory Results - last 24 hr 10/11/24 10/11/24 10/11/24 11:15 11:30 11:55 WBC 6.8 RBC 3.31 L Hgb 10.7 L Hct 31.6 L MCV 95.5 MCH 32.3 H MCHC 33.9 RDW Std Deviation 45.2 H RDW Coeff of Broderick 13.1 Plt Count 199 MPV 10.2 Immature Gran % (Auto) 0.300 Neut % (Auto) 70.8 H Lymph % (Auto) 15.2 L Jones % (Auto) 9.6 Eos % (Auto) 3.7 Baso % (Auto) 0.4 Absolute Neuts (auto) 4.8 Absolute Lymphs (auto) 1.04 Nucleated RBC % 0 PT 20.7 H INR 1.7 Sodium 134 Potassium 4.1 Chloride 105 Carbon Dioxide 17.4 L Anion Gap 12 BUN 28 H Creatinine 1.70 H Estim Creat Clear Calc 20.52 L Est GFR (MDRD) Non-Af 29 L BUN/Creatinine Ratio 16.2 Glucose 117 H Calcium 8.9 Magnesium 1.7 Troponin T High Sens 82 H* TSH 2.150 Urine Color Yellow Urine Clarity Sl. Cloudy Urine pH 6.0 Ur Specific [place] 1.015 Urine Protein 30 H Urine Glucose (UA) Normal Urine Ketones Negative Urine Occult Blood Negative Urine Nitrite Negative Urine Bilirubin Negative Urine Urobilinogen Normal Ur Leukocyte Esterase Negative Urine RBC 0 SEEN Urine WBC 0 SEEN Ur Squamous Epith Cells 0-5 SEEN Urine Bacteria 0 SEEN Urine Mucus 0 SEEN Radiography Diagnostic Testing: Clinical Impression(s) from Imaging Studies Chest X-Ray 10/11/24 11:15 IMPRESSION: Borderline cardiomegaly. The lungs are clear. Reading Location: [facility] EKG Atrial fibrillation: Attestation: I personally reviewed and interpreted this EKG as follows: Interpretation: Atrial Fibrillation Comments: Atrial fibrillation, rate of 133 bpm, QRS duration 80 ms, no acute ST elevation, no acuteinfarct noted. Treatment and Re-Evaluation :: Differential diagnosis includes however is not limited to: A-fib with RVR, PE, electrode abnormality, hyperthyroidism, hypothyroidism, medication noncompliance, ACS, NV Patient is tachycardic, patient is in no obvious distress. Presenting to the emergency department for complaints of chest pain, palpitations, fast heart rate. Patient does seem to be in atrial fibrillation is uncontrolled at a rate of 133. Patient received cardiac workup, thyroid as well as urinalysis, chest x- ray. Secondary to the patient's concern for cough, COVID-19 and influenza test we ordered. Chest x-ray will be ordered to ensure there is no pneumonia, fluid overload. All radiologic examinations were read, reviewed by the emergency department attending. From these reads, a plan of carewill be put inplace. Patient given IV fluids, as well as IV Cardizem. Patient will need to be reeval uated Patient CBC shows a stable anemia patient's PT is a 20.7, INR 1.7. Patient's chemistries show a creatinine of 1.7 this is baseline, patient is anywhere between 2.1-1.5. Patient's troponin initially was 82 a repeat will be drawn. Patient likely need to be admitted to hospital for secondary to chest pain, TSH is with in normal limits at 2.15. Patient responded well to the Cardizem, patient's heart rate is now between 105 and 110. Blood pressure still slightly soft. Patient will be admitted to hospital. Will reach out to cardiology. Patient be given digoxin as well as Cardizem drip. Patient willbe admitted to PCU full MDM MDM Narrative Medical decision making narrative: I have personally performed a face to face assessment of the patient and have reviewed the MOSHE Note. I performed a substantive portion of the visit including all aspects of the following. My welch findings include: History is In the middle of the night with burning chest discomfort, no palpitations, dyspnea, lightheadedness, syncope or near syncope, diaphoresis. Still has the burning. Has had a cough for about a week. Nonproductive, no fevers or chills. Also recently had a UTI 1 or 2 weeks ago, she was put on Macrobid that she did not tolerate after multiple days, was switched to Cipro, finished that then the symptoms returned with pressure and frequency, so then was put back on Macrobid and then switchedagain to Bactrim, which she only tooksome of it and the culture came back negative according to daughter. This was all at a different facility. She follows with our cardiology group. She thinksshe isusually not in A-fib, and her records confirm a history of paroxysmal atrial fibrillation. Exam is rapid irregular pulse, keenly alert and oriented x 3. Lungs clear to auscultation throughout. No pedal edema. Good pulses distally all 4 extremities. Medical Decison Making chest x-ray 1 view my interpretation shows no pneumonia. She does not have aleukocytosis, consistent with this, especially with all the antibiotic she has had lately, I would not expect her to have a bacterial pneumonia. Her EKG appears to show rapid A-fib with no acute injury pattern. Obtained labs and troponin measurements while giving her a fluid bolus and attempt to bring HR down with Cardizem. Her initial troponin is elevated at 82. She does have renal insufficiency. She has not had any chest discomfort since 4 AM. We brought her rate down to the 110-120 range, currently asymptomatic, blood pressures are soft but 102/45 after Cardizem 15 mg. Given that she was having chest pain, elevated troponin could be early evidence of an NSTEMI or could simply be related to her having RVR for the past 10 hours or so. Plan is for admission. Cardiology on page, we are going to start on Cardizem drip and give her a bolus of digoxin and more IV fluids. Other additions or changes: [None] Lab Data Labs: Laboratory Results - last 24 hr 10/11/24 10/11/24 10/11/24 11:15 11:30 11:55 WBC 6.8 RBC 3.31 L Hgb 10.7 L Hct 31.6 L MCV 95.5 MCH 32.3 H MCHC 33.9 RDW Std Deviation 45.2 H RDW Coeff of Broderick 13.1 Plt Count 199 MPV 10.2 Immature Gran % (Auto) 0.300 Neut % (Auto) 70.8 H Lymph % (Auto) 15.2 L Jones % (Auto) 9.6 Eos % (Auto) 3.7 Baso % (Auto) 0.4 Absolute Neuts (auto) 4.8 Absolute Lymphs (auto) 1.04 Nucleated RBC % 0 PT 20.7 H INR 1.7 Sodium 134 Potassium 4.1 Chloride 105 Carbon Dioxide 17.4 L Anion Gap 12 BUN 28 H Creatinine 1.70 H Estim Creat Clear Calc 20.52 L Est GFR (MDRD) Non-Af 29 L BUN/Creatinine Ratio 16.2 Glucose 117 H Calcium 8.9 Magnesium 1.7 Troponin T High Sens 82 H* TSH 2.150 Urine Color Yellow Urine Clarity Sl. Cloudy Urine pH 6.0 Ur Specific [place] 1.015 Urine Protein 30 H Urine Glucose (UA) Normal Urine Ketones Negative Urine Occult Blood Negative Urine Nitrite Negative Urine Bilirubin Negative Urine Urobilinogen Normal Ur Leukocyte Esterase Negative Urine RBC 0 SEEN Urine WBC 0 SEEN Ur Squamous Epith Cells 0-5 SEEN Urine Bacteria 0 SEEN Urine Mucus 0 SEEN Radiography Diagnostic Testing: Clinical Impression(s) from Imaging Studies Chest X-Ray 10/11/24 11:15 IMPRESSION: Borderline cardiomegaly. The lungs are clear. Reading Location: [facility]1 Management Discussion w/another healthcare provider: Hospitalist and Pet Resort Concierge (cardiology timmy - agrees w/tx for now and will see on floor) Critical Care Time Critical Care Time: Yes Critical care time (excluding procedures): 30-74 minutes (34 min), Including time spent:, Discussing w/Patient &/or Family/Insole Tack Puller Hand, Discussing w/Consultants, Arranging Admission or Transfer and Performing Direct Patient Care at Bedside Discharge Plan Dx/Rx/DC Orders Clinical Impression: Chest pain, Paroxysmal atrial fibrillation, Chronic kidney disease, Elevated troponin, Atrial fibrillation with RVR Disposition Disposition: Acute Care Hospital [facility] Discharge Date/Time: 10/11/24 15:31 What to do if you have Problems For any increased pain, shortness of breath, bleeding, nausea or vomiting, chest pain, or any unexpected problems, contact your Primary Care Provider. Call [facility] ([phone]) or report to the closest Emergency Room. Call 911 if necessary. 10/11/24 1400 Cosigner Signature (if applicable): 10/11/24 1544 CC: Dr. Anay Schuler MD ~ Signed [facility]04-15-2025 History and physical note Author Inocencia Long [facility] Note Date/Time October 11, 2024 2:3 0pm [facility] Medical Records Department [address] [place] [address] H&P Exam - Hospitalist 10/11/24 1328 MR#: [id number] Acct: [id number] Name: REINIER ELIZABETH Rep #:[id number] : 1935 88 From: Inocencia Long MD PCP: Dr. Anay Schuler MD Status:REG E R Location: ED HPI - General General Date of Admission: 10/11/24 Date of Service: 10/11/24 Chief Complaint: Palpitations/racing heart/chest pain/burning. HPI Narrative The patient is an 88 y/o F w/ PMHx: Former tobacco use, Hypothyroidism, GERD, CKD stage III unclear subtype per GFR trending although occasional appears stageIV, Chronic anemia, HLF, HTN, PAF [facility] with onset of racing heart, palpitations, irregular heart rate sensation with chest burning which has been persistent on day of presentation recently reporting that she has had several recent issues with urinary tract infections with treatment with Macrobid, Cipro as well as Bactrim with the last intake of antibiotics 2 days previous with onset at 12 AM this morning the symptoms as noted with palpitation/racing heart and chest burning sensation lasting until 4 AM prompting ED evaluation. She notes she did stop the Bactrim the day prior as she was under the impression it may have been making her cough. Patient notes that the chest discomfort described as a burning sensation was midsternal with no radiation and rated it when it was occurring 8-9 out of 10 inseverity but it did completely subside at 4 AM and has not returned since. She currently can still feel that her heart is not beating regularly and is faster than it should be. Workup in the ED included T97.7, heart 128, BP 94/58, respiratory rate 16, 97% on room air with most recent repeat vitals heart rate 115, BP 102/45, respiratory rate 20, 98% on room air, CBC with WBC 6.8, hemoglobin 10.7, MCV 95.5, platelet 199 without marked shift, coags with INR 1.7, PT 20.7, BMP with, Dex at 17.4, anion gap 12, BUN/creatinine 28/1.70, GFR 29, glucose 117, troponin 82, TSH 2.150, urinalysis not marked appearing, chest x-ray with borderline cardiomegaly with no acute cardiopulmonary findings, EKG atrial fibrillation with RVR. In the ED patient ministered 1 L normal saline and diltiazem 50 mg IV bolus x 1. ED physician noted to get paged and was awaiting to discuss case with Dr. Kingston. In the interim given patient persistent RVR additionally administered digoxin 250 mcg IV x 1 and placed on a low-dose Cardizem drip as well as ministered an additional 500 cc IV fluid normal saline. [facility] Medical History Hypothyroidism (acquired) Wears glasses Post-menopausal Thyroid disease Gastric reflux Former smoker History of edema History of echocardiogram History of stress test Cardiology follow-up encounter History of CHF (congestive heart failure) Paroxysmal atrial fibrillation Stage 3b chronic kidney disease (CKD) Elevated liver enzymes CKD (chronic kidney disease) stage 4, GFR 15-29 ml/min Stage 3b chronic kidney disease (CKD) Lymphedema of both lower extremities Bilateral lower extremity edema Dyspnea on exertion Pneumonia (03/19/22) Essential hypertension Atrial fibrillation, new onset Positive occult stool blood test Umbilical hernia Osteoporosis Hemorrhage of anus and rectum Glaucoma Acquired keratoderma Anemia Syncope Essential hypertension Sweating Palpitations Near syncope Hernia HLD (hyperlipidemia) Home Medications ?Medication ?Instructions ?Recorded ?Last Taken ?Type atorvastatin 20 mg tablet 20 mg PO QODAY Cholesterol 0 12/06/16 07/12/23 09:00 History latanoprost 0.005 % eye drops 1 drp ophthalmic (eye) B ID eye 12/06/16 10/10/24 History drops timolol maleate 0.5 % eye drops 1 drp RIGHT EYE BID ey e drops 12/06/16 10/10/24 History brimonidine 0.15 % eye drops 1 drp ophthalmic (eye) BI D eye 03/25/22 10/10/24 History health levothyroxine 25 mcg tablet 25 mcg PO DAILY thyroid 10/11/24 History losartan 50 mg tablet 50 mg PO BID bp #180 tabs 10/11/24 Rx cholecalciferol (vitamin D3) 50 50 mcg PO BID suppleme nt 05/08/23 10/11/24 History mcg (2,000 unit) capsule mecobalamin (vitamin B12) 1,000 1,000 mcg PO DAILY sup plement 05/08/23 10/11/24 History mcg chewable tablet denosumab 60 mg/mL subcutaneous 60 mg subcut [id number] bone health 08/20/23 Unknown History syringe (Prolia) rivaroxaban 15 mg tablet (Xarelto) 15 mg PO DINNER blo od thinner #30 04/25/24 10/11/24 Rx tabs furosemide 20 mg tablet 20 mg PO QODAY PRN diuresis 06/14/24 Unknown History omeprazole 40 mg capsule,delayed 20 mg PO DAILY gerd 1 08/15/23 10/11/24 History release carvedilol 12.5 mg tablet 12.5 mg PO BID bp #180 tabs 08/17/24 10/11/24 Rx potassium chloride 10 mEq 20 meq PO DAILY 08/27/24 History capsule,extended release vibegron 75 mg tablet (Gemtesa) 75 mg PO DAILY 5 10/11/24 History hydralazine 50 mg tablet 50 mg PO TID #270 tabs 09/0510/11/24 Rx Allergy/AdvReac Type Severity Reaction Status Date / Time amantadine Allergy Rash Verified 10/11/24 11:11 cephalexin Allergy Rash Verified 10/11/24 11:11 erythromycin base Allergy Rash Verified 10/11/24 11:11 hydrochlorothiazide Allergy Rash Verified 10/11/24 11:11 Iodinated Contrast Media Allergy Rash Verified 10/11/24 11:11 nitrofurantoin (From Allergy Vomiting Verified 10/11/24 11:11 Macrobid) amlodipine (From Norvas) AdvReac Other Verified 10/11/24 11:11 Family History Mother CAD (coronary artery disease) Father CAD (coronary artery disease) Brother CAD (coronary artery disease) Sister CAD (coronary artery disease) Surgical History History of cardiac catheterization Hx of esophagogastroduodenoscopy History of colonoscopy History of hysteroscopy H/O hernia repair Tubal ligation status History of left heart catheterization (02/05/18) s/p left wrist ORIF Social History household members: none housing: apartment number of children: 4 Smoking Status: Former smoker quit date: 06/29/76 alcohol intake: never substance use type: does not use caffeine: Yes (Occasionally) ROS ROS Narrative Admission Review of Systems: CONSTITUTIONAL: No weight loss, fever, chills, weakness or fatigue. HEENT: Eyes: No visual loss, blurred vision, double vision or yellow sclerae. Ears, Nose, Throat: No hearing loss, sneezing, congestion, runny nose or sore throat. SKIN: No rash or itching, lesions, wounds. CARDIOVASCULAR: + Chest burning sensation, palpitation/racing heart. No orthopnea, syncopal events. RESPIRATORY: No shortness of breath, cough or sputum, wheezing, hemoptysis. GASTROINTESTINAL: No anorexia, nausea, vomiting or diarrhea, abdominal pain, melena, BRBPR. GENITOURINARY: No dysuria, frequency, urgency or retention. NEUROLOGICAL: No headache, dizziness, syncope, paralysis, ataxia, numbness or tingling in the extremities, focal weakness, change in bowel or bladder control,seizure. MUSCULOSKELETAL: + muscle, back pain, joint pain or stiffness. HEMATOLOGIC: + Chronic anemia, easy bleeding/bruising. LYMPHATICS: No enlarged nodes. No history of splenectomy. PSYCHIATRIC: No history of depression or anxiety. ENDOCRINOLOGIC: No reports of sweating, cold or heat intolerance. No polyuria orpolydipsia. ALLERGIES: No history of asthma, hives, eczema or rhinitis. Vital Signs Vital Signs Vital Signs: 10/11/24 11:08 10/11/24 11:40 10/11/24 11:40 Temperature 97.7 F L Temperature Source Oral Pulse Rate 128 H Respiratory Rate 16 Respiratory Effort Normal Non-Labored Blood Pressure 94/58 L Blood Pressure Mean 70 Pulse Ox 97 Oxygen Delivery Method Room Air Room Air 10/11/24 12:07 10/11/24 13:00 Temperature Temperature Source Pulse Rate 108 H 115 H Respiratory Rate 18 20 H Respiratory Effort Blood Pressure 116/72 102/45 L Blood Pressure Mean 86 64 Pulse Ox 97 98 Oxygen Delivery Method Room Air Room Air Weight Weight: 141 lb 9.6 oz Body Mass Index (BMI) 25.9 Physical Exam Narrative Physical Examination: General: Awake, alert, oriented x 3 and cooperative, seated upright in the ED bed, denies any current chest discomfort/burning, notes she can still feel that her heart is racing fast. Skin: Normal color, normal turgor, no icterus, no cyanosis except occasional stage ecchymoses, abrasion. HEENT: AT/NC, EOMI, PERRLA, MMM, no carotid bruits or JVD noted. Lungs: Mildly diminished, greater bases, mildly increased respiratory rate but no distress, no rales, ronchi or wheezing. Heart: Irregular irregular; no gallop, rub audible. Abdomen: Soft, NTTP, ND, distant normal BS, n appreciated o HSM. Extremities: No cyanosis, no clubbing, no marked distal edema. Neurological: Patient awake, alert, oriented as noted, cognitive function intact; pupils equally reactive to light and accommodation, cranial nerves grossnormal, moving all 4 extremities, no focal deficits, strength moderately globally decreased secondary to acute presentation complaints Psychiatric: Affect appears mildly flat, fatigued, no acute evidence of depressive or anxiety feelings. Results Lab / Micro Data 10/11/24 11:15 10/11/24 11:30 Labs: Laboratory Results - last 24 hr 10/11/24 11:15: WBC 6.8, RBC 3.31 L, Hgb 10.7 L, Hct 31.6 L, MCV 95.5, MCH 32.3 H, MCHC 33.9, RDW Std Deviation 45.2 H, RDW Coeff of Broderick 13.1, Plt Count 199, MPV 10.2, Immature Gran % (Auto) 0.300, Neut % (Auto) 70.8 H, Lymph % (Auto) 15.2 L, Jones % (Auto) 9.6, Eos % (Auto) 3.7, Baso % (Auto) 0.4, Absolute Neuts (auto) 4.8, Absolute Lymphs (auto) 1.04, Nucleated RBC % 0 10/11/24 11:30: PT 20.7 H, INR 1.7, Sodium 134, Potassium 4.1, Chloride 105, Carbon Dioxide 17.4 L, Anion Gap 12, BUN 28 H, Creatinine 1.70 H, Estim Creat Clear Calc 20.52 L, Est GFR (MDRD) Non-Af 29 L, BUN/Creatinine Ratio 16.2, Glucose 117 H, Calcium 8.9, Troponin T High Sens 82 H*, TSH 2.150 10/11/24 11:55: Urine Color Yellow, Urine Clarity Sl. Cloudy, Urine pH 6.0, Ur Specific [place] 1.015, Urine Protein 30 H, Urine Glucose (UA) Normal, Urine Ketones Negative, Urine Occult Blood Negative, Urine Nitrite Negative, Urine Bilirubin Negative, Urine Urobilinogen Normal, Ur Leukocyte Esterase Negative, Urine RBC 0 SEEN, Urine WBC 0 SEEN, Ur Squamous Epith Cells 0-5 SEEN, Urine Bacteria 0 SEEN, Urine Mucus 0 SEEN Micro: Microbiology 10/11/24 11:55 Mucosa - Nose SARS-CoV-2, Influenza & RSV (PCR) - Final Imaging Radiology Impression Chest X-Ray 10/11/24 11:15 IMPRESSION: Borderline cardiomegaly. The lungs are clear. Reading Location: [facility]IR-1 Assessment & Plan Assessment/Plan (1) Atrial fibrillation with RVR: (2) Elevated troponin: PLAN: Plan The patient is an 88 y/o F w/ PMHx: Former tobacco use, Hypothyroidism, GERD, CKD stage III unclear subtype per GFR trending although occasional appears stageIV, Chronic anemia, HLF, HTN, PAF who [facility] with onset of racing heart, palpitations, irregular heart rate sensation with chest burning which has been persistent on day of presentation recently reporting that she has had several recent issues with urinary tract infections with treatment with Macrobid, Cipro as well as Bactrim with the last intake of antibiotics 2 days previous with onset at 12 AM this morning the symptoms as noted with palpitation/racing heart and chest burning sensation lasting until 4 AM prompting ED evaluation. #1. Paroxsymal atrial fibrillation w/ RVR with associated indeterminate enzyme,unclear significance but suspected secondary to persistent RVR: EKG in ED w/ atrial fibrillation w/ RVR. Patient administered Cardizem bolus and 1 L normal saline bolus in ED. Will admit to PCU, maintain on telemetry, obtain cardiac enzyme serial set, obtain magnesium level, TSH normal level, most recent echocardiogram 07/13/2023 with EF 60 to 65%, normal LV systolic function, mild TR, mild MR not markedly changed from previous. Patient did improve with Cardizem bolus in the ED, eventually transition to Cardizem drip with an additional dose of 2050 NegGram IV x 1 digoxin administered. Will continue Cardizem drip, attempt also dose with Coreg overlap within the next 24 hours however will change per cardiology discretion has been consulted per ED and willcontinue, continue home Xarelto regimen. #2. Patient reported recent urinary tract infections: Urinalysis is unremarkable, unclear what organisms have been treated but from discussion she has been through several antibiotics including most recently Bactrim, will stop this is no obvious infectious concerns on urinalysis. If she continues to have symptoms may benefit from outpatient urology follow-up #3. HFpEF (presumed per most recent echo): Most recent echo as noted above withEF 60-65%, will judiciously hydrate as noted above, will continue as BP allows given prior sedation of the right agents as noted with Coreg, Lasix, hydralazine, losartan, continue statin therapy, continue Xarelto. #4. Chronic Kidney Disease Stage III per GFR trending unclear subtype although sometimes appears to be stage IV, uncertain: Admission BUN/Cr 28/1.70, GFR 29 however primarily seems to be more consistent with stage III from review of trending but occasionally stage IV, baseline renal function 1.3-1.8 however sometimes vacillates up to 2.1 but this may be acute, unclear repeat BMP in AM. #5. Chronic normocytic anemia: Admission hemoglobin 10.7, MCV 95.5, baseline hemoglobin primarily 9-10 range, stable, continue to trend. #6. Hypertension: Patient normally on losartan, Lasix, hydralazine, Coreg, willcontinue but may need to prioritize Cardizem drip if necessary, will dose with Coreg x 1 now and continue to monitor, as needed IV hydralazine. #7. Hyperlipidemia: Continue home statin regimen. AM FLP. #8. Hypothyroidism: Will continue patient home levothyroxine regimen, TSH per ED normal range. #9. Former tobacco use: Encourage continued tobacco cessation. #10. GERD: Will continue patient on PPI. #11. DVT prophylaxis: Continue patient home Xarelto regimen. #12. CODE status: Patient JENNIFER is her daughter Murtaza who is present and livingwill is currently in place. Discussed CODE status at length including differencebetween FULL code, DNR-CCA and DNR-CC status. Following discussions about the differences in these status, requested eventually DNR CCA, with intubation with several examples given and did discuss that if she changed her mind certainly following her and her daughter discussing it further that we could adjust this CODE STATUS accordingly. Advanced Care Planning Face to Face Time: 16 minutes. Charges/Coding Visit Charges Inpatient E&M: 13133 Init Hosp L3 Procedures Hospitalists Procedures: 25047 Advncd Care Plan 30 Min 10/11/24 1430 <Electronically signed by Inocencia Long MD> Cosigner Signature (if applicable): CC: Dr. Inocencia Long MD; Dr. Anay Schuler MD~ Signed [facility] Work Phone: 1([phone]) 510-551304-15-2025 History and physical note [facility] Medical Records Department [address] [place] [id number] H&P Exam - Hospitalist 10/11/24 1328 MR#: [id number] Acct: [id number] Name: REINIER ELIZABETH Rep #:[id number] : 1935 88 From: Inocencia Long MD PCP: Dr. Anay Schuler MD Status:REG E R Location: ED HPI - General General Date of Admission: 10/11/24 Date of Service: 10/11/24 Chief Complaint: Palpitations/racing heart/chest pain/burning. HPI Narrative The patient is an 88 y/o F w/ PMHx: Former tobacco use, Hypothyroidism, GERD, CKD stage III unclearsubtype per GFR trending although occasional appears stageIV, Chronic anemia, HLF, HTN, PAF who presents to the [facility] on 10[facility]11/24 with onset of racing heart, palpitations, irregular heart rate sensation with chest burning which has been persistent on day of presentation recently reporting that she has had several recent issues with urinary tract infections with treatment with Macrobid, Cipro as well as Bactrim with the last intake of antibiotics 2 days previous with onset at 12 AM this morning the symptoms as noted with palpitation/racing heart and chest burning sensation lasting until 4 AM prompting ED evaluation. She notes she did stop the Bactrim the day prior as she was under the impression it may have been making her cough. Patient notes that the chest discomfort described as a burning sensation was midsternal with no radiation and rated it when it was occurring 8- 9 out of 10 inseverity but it did completely subside at 4 AM and has not returned since. She currently can still feel that her heart is not beating regularly and is faster than it should be. Workup in the ED included T97.7, heart 128, BP 94/58, respiratory rate 16, 97% on room air with most recent repeat vitals heart rate 115, BP 102/45, respiratory rate 20, 98% on room air, CBC with WBC 6.8,hemoglobin 10.7, MCV 95.5, platelet 199 without marked shift, coags with INR 1.7, PT 20.7, BMP with, Dex at 17.4, anion gap 12, BUN/creatinine 28/1.70, GFR 29, glucose 117, troponin 82, TSH 2.150, urinalysis not marked appearing, chest x-ray with borderline cardiomegaly with no acute cardiopulmonary findings, EKG atrial fibrillation with RVR. In the ED patient ministered 1 L normal saline and diltiazem 50 mg IV bolus x 1. ED physician noted to get paged and was awaiting to discuss case with . In the interim given patient persistent RVR additionally administered digoxin 250 mcg IV x 1 and placed on a low-dose Cardizem drip as well as ministered an additional 500 cc IV fluid normal saline. [facility] Medical History Hypothyroidism (acquired) Wears glasses Post-menopausal Thyroid disease Gastric reflux Former smoker History of edema History of echocardiogram History of stress test Cardiology follow-up encounter History of CHF (congestive heart failure) Paroxysmal atrial fibrillation Stage 3b chronic kidney disease (CKD) Elevated liver enzymes CKD (chronic kidney disease) stage 4, GFR 15-29 ml/min Stage 3b chronic kidney disease (CKD) Lymphedema of both lower extremities Bilateral lower extremity edema Dyspnea on exertion Pneumonia (03/19/22) Essential hypertension Atrial fibrillation, new onset Positive occult stool blood test Umbilical hernia Osteoporosis Hemorrhage of anus and rectum Glaucoma Acquired keratoderma Anemia Syncope Essential hypertension Sweating Palpitations Near syncope Hernia HLD (hyperlipidemia) Home Medications ?Medication ?Instructions ?Recorded ?Last Taken ?Type atorvastatin 20 mg tablet 20 mg PO QODAY Cholesterol 0 12/06/16 07/12/23 09:00 History latanoprost 0.005 % eye drops 1 drp ophthalmic (eye) B ID eye 12/06/16 10/10/24 History drops timolol maleate 0.5 % eye drops 1 drp RIGHT EYE BID ey e drops 12/06/16 10/10/24 History brimonidine 0.15 % eye drops 1 drp ophthalmic (eye) BI D eye 03/25/22 10/10/24 History health levothyroxine 25 mcg tablet 25 mcg PO DAILY thyroid 10/11/24 History losartan 50 mg tablet 50 mg PO BID bp #180 tabs 10/11/24 Rx cholecalciferol (vitamin D3) 50 50 mcg PO BID suppleme nt 05/08/23 10/11/24 History mcg (2,000 unit) capsule mecobalamin (vitamin B12) 1,000 1,000 mcg PO DAILY sup plement 05/08/23 10/11/24 History mcg chewable tablet denosumab 60 mg/mL subcutaneous 60 mg subcut [id number] bone health 08/20/23 Unknown History syringe (Prolia) rivaroxaban 15 mg tablet (Xarelto) 15 mg PO DINNER blo od thinner #30 04/25/24 10/11/24 Rx tabs furosemide 20 mg tablet 20 mg PO QODAY PRN diuresis 06/14/24 Unknown History omeprazole 40 mg capsule,delayed 20 mg PO DAILY gerd 1 08/15/23 10/11/24 History release carvedilol 12.5 mg tablet 12.5 mg PO BID bp #180 tabs 08/17/24 10/11/24 Rx potassium chloride 10 mEq 20 meq PO DAILY 08/27/24 History capsule,extended release vibegron 75 mg tablet (Gemtesa) 75 mg PO DAILY 5 10/11/24 History hydralazine 50 mg tablet 50 mg PO TID #270 tabs 09/0510/11/24 Rx Allergy/AdvReac Type Severity Reaction Status Date / Time amantadine Allergy Rash Verified 10/11/24 11:11 cephalexin Allergy Rash Verified 10/11/24 11:11 erythromycin base Allergy Rash Verified 10/11/24 11:11 hydrochlorothiazide Allergy Rash Verified 10/11/24 11:11 Iodinated Contrast Media Allergy Rash Verified 10/11/24 11:11 nitrofurantoin (From Allergy Vomiting Verified 10/11/24 11:11 Macrobid) amlodipine (From Norvasc) AdvReac Other Verified 10/11/24 11:11 Family History Mother CAD (coronary artery disease) Father CAD (coronary artery disease) Brother CAD (coronary artery disease) Sister CAD (coronary artery disease) Surgical History History of cardiac catheterization Hx of esophagogastroduodenoscopy History of colonoscopy History of hysteroscopy H/O hernia repair Tubal ligation status History of left heart catheterization (02/05/18) s/p left wrist ORIF Social History household members: none housing: apartment number of children: 4 Smoking Status: Former smoker quit date: 06/29/76 alcohol intake: never substance use type: does not use caffeine: Yes (Occasionally) ROS ROS Narrative Admission Review of Systems: CONSTITUTIONAL: No weight loss, fever, chills, weakness or fatigue. HEENT: Eyes: No visual loss, blurred vision, double vision or yellow sclerae. Ears, Nose, Throat: No hearing loss, sneezing, congestion, runny nose or sore throat. SKIN: No rash or itching, lesions, wounds. CARDIOVASCULAR: + Chest burning sensation, palpitation/racing heart. No orthopnea, syncopal events. RESPIRATORY: No shortness of breath, cough or sputum, wheezing, hemoptysis. GASTROINTESTINAL: No anorexia, nausea, vomiting or diarrhea, abdominal pain, melena, BRBPR. GENITOURINARY: No dysuria, frequency, urgency or retention. NEUROLOGICAL: No headache, dizziness, syncope, paralysis, ataxia, numbness or tingling in the extremities, focal weakness, change in bowel or bladder control,seizure. MUSCULOSKELETAL: + muscle, back pain, joint pain or stiffness. HEMATOLOGIC: + Chronic anemia, easy bleeding/bruising. LYMPHATICS: No enlarged nodes. No history of splenectomy. PSYCHIATRIC: No history of depression or anxiety. ENDOCRINOLOGIC: No reports of sweating, cold or heat intolerance. No polyuria orpolydipsia. ALLERGIES: No history of asthma, hives, eczema or rhinitis. Vital Signs Vital Signs Vital Signs: 10/11/24 11:08 10/11/24 11:40 10/11/24 11:40 Temperature 97.7 F L Temperature Source Oral Pulse Rate 128 H Respiratory Rate 16 Respiratory Effort Normal Non-Labored Blood Pressure 94/58 L Blood Pressure Mean 70 Pulse Ox 97 Oxygen Delivery Method Room Air Room Air 10/11/24 12:07 10/11/24 13:00 Temperature Temperature Source Pulse Rate 108 H 115 H Respiratory Rate 18 20 H Respiratory Effort Blood Pressure 116/72 102/45 L Blood Pressure Mean 86 64 Pulse Ox 97 98 Oxygen Delivery Method Room Air Room Air Weight Weight: 141 lb 9.6 oz Body Mass Index (BMI) 25.9 Physical Exam Narrative Physical Examination: General: Awake, alert, oriented x 3 and cooperative, seated upright in the ED bed, denies any current chest discomfort/burning, notes she can still feel that her heart is racing fast. Skin: Normal color, normal turgor, no icterus, no cyanosis except occasional stage ecchymoses, abrasion. HEENT: AT/NC, EOMI, PERRLA, MMM, no carotid bruits or JVD noted. Lungs: Mildly diminished, greater bases, mildly increased respiratory rate but no distress, no rales, ronchi or wheezing. Heart: Irregular irregular; no gallop, rub audible. Abdomen: Soft, NTTP, ND, distant normal BS, n appreciated o HSM. Extremities: No cyanosis, no clubbing, no marked distal edema. Neurological: Patient awake, alert, oriented as noted, cognitive function intact; pupils equally reactive to light and accommodation, cranial nerves grossnormal, moving all 4 extremities, no focal deficits, strength moderately globally decreased secondary to acute presentation complaints Psychiatric: Affect appears mildly flat, fatigued, no acute evidence of depressive or anxiety feelings. Results Lab / Micro Data 10/11/24 11:15 10/11/24 11:30 Labs: Laboratory Results - last 24 hr 10/11/24 11:15: WBC 6.8, RBC 3.31 L, Hgb 10.7 L, Hct 31.6 L, MCV 95.5, MCH 32.3 H, MCHC 33.9, RDW Std Deviation 45.2 H, RDW Coeff of Broderick 13.1, Plt Count 199, MPV 10.2, Immature Gran % (Auto) 0.300, Neut % (Auto) 70.8 H, Lymph % (Auto) 15.2 L, Jones % (Auto) 9.6, Eos % (Auto) 3.7, Baso % (Auto) 0.4, Absolute Neuts (auto) 4.8, Absolute Lymphs (auto) 1.04, Nucleated RBC % 0 10/11/24 11:30: PT 20.7 H, INR 1.7, Sodium 134, Potassium 4.1, Chloride 105, Carbon Dioxide 17.4 L,Anion Gap 12, BUN 28 H, Creatinine 1.70 H, Estim Creat Clear Calc 20.52 L, Est GFR (MDRD) Non-Af 29L, BUN/Creatinine Ratio 16.2, Glucose 117 H, Calcium 8.9, Troponin T High Sens 82 H*, TSH 2.150 10/11/24 11:55: Urine Color Yellow, Urine Clarity Sl. Cloudy, Urine pH 6.0, Ur Specific [place] 1.015, Urine Protein 30 H, Urine Glucose (UA) Normal, Urine Ketones Negative, Urine Occult Blood Negative, Urine Nitrite Negative, Urine Bilirubin Negative, Urine Urobilinogen Normal, Ur Leukocyte Esterase Negative, Urine RBC 0 SEEN, Urine WBC 0 SEEN, Ur Squamous Epith Cells 0-5 SEEN, Urine Bacteria 0 SEEN, Urine Mucus 0 SEEN Micro: Microbiology 10/11/24 11:55 Mucosa - Nose SARS-CoV-2, Influenza & RSV (PCR) - Final Imaging Radiology Impression Chest X-Ray 10/11/24 11:15 IMPRESSION: Borderline cardiomegaly. The lungs are clear. Reading Location: [facility]-1 Assessment & Plan Assessment/Plan (1) Atrial fibrillation with RVR: (2) Elevated troponin: PLAN: Plan The patient is an 88 y/o F w/ PMHx: Former tobacco use, Hypothyroidism, GERD, CKD stage III unclearsubtype per GFR trending although occasional appears stageIV, Chronic anemia, HLF, HTN, PAF who [facility] with onset of racing heart, palpitations, irregular heart rate sensation with chest burning which has been persistent on day of presentation recently reporting that she has had several recent issues with urinary tract infections with treatment with Macrobid, Cipro as well as Bactrim with the last intake of antibiotics 2 days previous with onset at 12 AM this morning the symptoms as noted with palpitation/racing heart and chest burning sensation lasting until 4 AM prompting ED evaluation. #1. Paroxsymal atrial fibrillation w/ RVR with associated indeterminate enzyme,unclear significancebut suspected secondary to persistent RVR: EKG in ED w/ atrial fibrillation w/ RVR. Patient administered Cardizem bolus and 1 L normal saline bolus in ED. Will admit to PCU, maintain on telemetry, obtain cardiac enzyme serial set, obtain magnesium level, TSH normal level, most recent echocardiogram07/13/2023 with EF 60 to 65%, normal LV systolic function, mild TR, mild MR not markedly changed from previous. Patient did improve with Cardizem bolus in the ED, eventually transition to Cardizem drip with an additional dose of 2050 NegGram IV x 1 digoxin administered. Will continue Cardizem drip, attempt also dose with Coreg overlap within the next 24 hours however will change per cardiology discretion has been consulted per ED and willcontinue, continue home Xarelto regimen. #2. Patient reported recent urinary tract infections: Urinalysis is unremarkable, unclear what organisms have been treated but from discussion she has been through several antibiotics including most recently Bactrim, will stop this is no obvious infectious concerns on urinalysis. If she continues to have symptoms may benefit from outpatient urology follow-up #3. HFpEF (presumed per most recent echo): Most recent echo as noted above withEF 60-65%, will judiciously hydrate as noted above, will continue as BP allows given prior sedation of the right agents as noted with Coreg, Lasix, hydralazine, losartan, continue statin therapy, continue Xarelto. #4. Chronic Kidney Disease Stage III per GFR trending unclear subtype although sometimes appears sammy stage IV, uncertain: Admission BUN/Cr 28/1.70, GFR 29 however primarily seems to be more consistent with stage III from review of trending but occasionally stage IV, baseline renal function 1.3-1.8 however sometimes vacillates up to 2.1 but this may be acute, unclear repeat BMP in AM. #5. Chronic normocytic anemia: Admission hemoglobin 10.7, MCV 95.5, baseline hemoglobin primarily 9-10 range, stable, continue to trend. #6. Hypertension: Patient normally on losartan, Lasix, hydralazine, Coreg, willcontinue but may need to prioritize Cardizem drip if necessary, will dose with Coreg x 1 now and continue to monitor, asneeded IV hydralazine. #7. Hyperlipidemia: Continue home statin regimen. AM FLP. #8. Hypothyroidism: Will continue patient home levothyroxine regimen, TSH per ED normal range. #9. Former tobacco use: Encourage continued tobacco cessation. #10. GERD: Will continue patient on PPI. #11. DVT prophylaxis: Continue patient home Xarelto regimen. #12. CODE status: Patient JENNIFER is her daughter Murtaza who is present and ochoa is currently inplace. Discussed CODE status at length including differencebetween FULL code, DNR-CCA and DNR-CC status. Following discussions about the differences in these status, requested eventually DNR CCA, with intubation with several examples given and did discuss that if she changed her mind certainly following her and her daughter discussing it further that we could adjust this CODE STATUS accordingly. Advanced Care Planning Face to Face Time: 16 minutes. Charges/Coding Visit Charges Inpatient E&M: 27123 Init Hosp L3 Procedures Hospitalists Procedures: 54879 Advncd Care Plan 30 Min 10/11/24 1430 Cosigner Signature (if applicable): CC: Dr. Inocencia Long MD; Dr. Anay Schuler MD~ Signed [facility]04-15-2025 Radiology Diagnostic study note [facility] Imaging Services [address] [place], [place] [address] Chest 1 View (Portable) MR#: [id number] Acct: [id number] Name: REINIER ELIZABETH Rep #: [id number] : 1935 F 88 From: Timoteo Puga MD PCP: Dr. Anay Schuler MD Status: PRE E R Study:Chest 1 View (Portable) Date of Exam: 10/11/24 Exam# [id number] Ordering Dr: Benito Chan MD PROCEDURE: CHEST 1 VIEW (PORTABLE) 10/11/2024 REASON FOR EXAM: CHEST PAIN Tachycardia. TECHNIQUE: Frontal view of the chest. COMPARISON: None FINDINGS: Hardware: EKG electrodes are seen. Heart: Heart size and measures upper limits of normal. Lungs: The lungs are clear. Bones: Degenerative changes are identified within the thoracic spine. Other: Calcification of the aortic arch. RAD/Chest 1 View (Portable) IMPRESSION: Borderline cardiomegaly. The lungs are clear. Reading Location: [facility]- CC: Dr. Vincent Chan MD; Dr. Anay Schuler MD ~ Manager Validation: Signed [facility]04-14-2025 Telephone encounter Note* Telephone Encounter - Yolette Pérez RN - 10/10/2024 10:07 AM EDT Patient's daughter notified of results and provider's instructions. Patient's daughter verbalizes understanding. Yolette Pérez RN [facility]04-14-2025 Miscellaneous Notes* Telephone Encounter - Yolette Pérez RN - 10/10/2024 10:07 AM EDT Patient's daughter notified of results and provider's instructions. Patient's daughter verbalizes understanding. Yolette Pérez RN * Telephone Encounter - Jenniffer Art MA - 10/10/2024 7:53 AM EDT Patient given results and verbalized understanding of instructions given. Jenniffer Art MA * Telephone Encounter - Jenniffer Art MA - 10/10/2024 7:51 AM EDT Left message for patient to return call. Jenniffre Art MA * Telephone Encounter - Merary Perales APRN.CNP - 10/10/2024 7:06 AM EDT Please call let patient know that she did not grow a significant amount of bacteria in her urine. If antibiotics seem to be helping with symptoms she can continue them. If symptoms persist she needs to follow-up with primary care. [facility] Telephone encounter Note * Telephone Encounter - Jenniffer Art MA - 10/10/2024 7:53 AM EDT Patient given results and verbalized understanding of instructions given. Jenniffer Art MA [facility]04-14-2025 Telephone encounter Note* Telephone Encounter - Jenniffer Art MA - 10/10/2024 7:51 AM EDT Left message for patient to return call. Jenniffer Art MA [facility]04-14-2025 Telephone encounter Note* Telephone Encounter - Merary Perales APRN.CNP - 10/10/2024 7:06 AM EDT Please call let patient know that she did not grow a significant amount of bacteria in her urine. If antibiotics seem to be helping with symptoms she can continue them. If symptoms persist she needs to follow-up with primary care. [facility] Work Phone: [phone] 935-639504-12-2025 Instructions* Patient Instructions* Michael Sullivan APRN.DARSHAN - 10/08/2024 12:38 PM EDT ASSESSMENT/PLAN: 1. Dysuria - ICD9: 788.1, ICD10: R30.0 - SULFAMETHOXAZOLE 800 MG-TRIMETHOPRIM 160 MG TABLET- patient instructed to hold potassium while onBactrim. - UA DIP, URINE (POC) - BACTERIAL CULTURE, URINE - Follow-up with your PCP in 3-5 days if symptoms have not improved or sooner if symptoms worsen - Discussed red flags and need for immediate medical evaluation if any occur. - Discussed supportive care treatment with fluids, rest and analgesia. - Discussed expected course of illness Michael Sullivan APRN.DARSHAN documented [facility]25 NoteHNO ID: [id number] Author: MICHAEL SULLIVAN APRN.CNP Service: ? Author Type: Nurse Practitioner Type: Progress Notes Filed: 10/08/2024 13:07 Note Text: [facility] Subjective Reinier Elizabeth is a 88 year old female. Patient presents with: UTI HPI Reinier Elizabeth is a 88 year old female who presents with dysuria and frequency and pelvic pressure for the past 2 weeks. Was seen on 09/26 and prescribed Macrobid. After one dose she vomited. A new prescription for Cipro was sent to the pharmacy. Culture result showed resistance to ampicillin, ampicillin/sulbactam, and cipro. She finished the cipro and continued to have symptoms so was placed on Macrobid which again made her vomit. Review of Systems Constitutional: Negative for chills and fever. Respiratory: Negative. Cardiovascular: Negative. Genitourinary: Positive for dysuria, frequency and pelvic pain. Negative for hematuria. Musculoskeletal: Negative. Objective BP 132/72 Pulse 62 Temp 37.3 ?C (99.2 ?F) (Right Tympanic) Resp 16 Wt 64.5 kg (142 lb 3.2 oz) SpO2 95% BMI 26.01 kg/m? PAST MEDICAL HISTORY Diagnosis Date - Acquired keratoderma Lichen sclerosis - Anemia - Anticoagulant long-term use indication: stroke prevention atrial fibrillation - At risk for bleeding associated with anticoagulants HAS-BLED score = 2 (age, bleeding) - At risk for stroke [id number] = 4 (HTN, age2, female gender) - Benign neoplasm of colon - Bilateral lower extremity edema - BMI 29.0-29.9,adult 09/25/2015 - Circumscribed scleroderma - CKD (chronic kidney disease) - Disorder of bone and cartilage, unspecified - DICKERSON (dyspnea on exertion) - Elevated liver enzymes - Essential hypertension - Gastrointestinal hemorrhage, unspecified - Glaucoma - Hemorrhage of rectum and anus - Hernia - History of GI bleed - HLD (hyperlipidemia) - Lymphedema of both lower extremities - Near syncope - Obesity, unspecified - Osteoporosis, unspecified - Other and unspecified hyperlipidemia - PAF (paroxysmal atrial fibrillation) (HCC) - Palpitations - Permanent atrial fibrillation (HCC) - Personal history of colonic polyps 09/20/2014 - Pneumonia - Stage 3b chronic kidney disease (CKD) (HCC) - Sweat, sweating, excessive - Umbilical hernia 12/22/2012 - Unspecified essential hypertension PAST SURGICAL HISTORY Procedure Laterality Date - COLONOSCOPY FLX DX W/COLLJ SPEC WHEN PFRMD 01/09/2003 Colonoscopy w/ polypectomy - COLONOSCOPY FLX DX W/COLLJ SPEC WHEN PFRMD 10/10/2014 Colonoscopy - COLSC FLX W/RMVL OF TUMOR POLYP LESION SNARE TQ 10/24/2008 - HYSTEROSCOPY, DIAGNOSTIC (SEPARATE 08/21/1998 Hysteroscopy - LEFT HEART CATH,PERCUTANEOUS Left 02/05/2018 - LIG/TRNSXJ FLP TUBE ABDL/VAG APPR UNI/BI 1976 Tubal ligation - PAST SURGICAL HISTORY OF 09/2000 CARDIAC CATH. - PAST SURGICAL HISTORY OF 05/2012, 2019 Glaucoma - May. right eye Jun. left eye - [facility] . Dr Gao - REPAIR FIRST ABDOMINAL WALL HERNIA 12/14/2012 2cm defect - Parietex Composite ventral patch 6cm - STRESS TEST 04/14/2017 - PAWAN 02/04/2018 ALLERGIES Macrobid [Nitrofurantoin Monohyd/M-Cryst], Amantadine, Capoten [Captopril], Cephalexin, Erythromycin, Hctz [Thiazides], Ivp Dye [Iodine], and Norvasc [Amlodipine Besylate] MEDICATIONS - losartan (COZAAR) 50 mg tablet Take 1 tablet by mouth two times a day. - atorvastatin (LIPITOR) 20 mg tablet Take 1 tablet by mouth every 48 hours. - levothyroxine (LEVOXYL) 25 mcg tablet Take 1 tablet by mouth once daily. Take on empty stomach. For Thyroid - omeprazole (PRILOSEC) 40 mg capsule Take 1 capsule by mouth daily before breakfast. 1/2 hr before meal. - cyanocobalamin, vitamin B-12, (VITAMIN B12 ORAL) Take by mouth once daily. - denosumab (PROLIA SUBCUTANEOUS) Inject subcutaneously once every 6 months. - ferrous sulfate 325 mg (65 mg iron) tablet Take 1 tablet by mouth once daily. - hydrALAZINE (APRESOLINE) 10 mg tablet Take 1 tablet by mouth four times daily. - carvedilol (COREG) 12.5 mg tablet Take 12.5 mg by mouth two times a day with meals. - potassium chloride (K-TAB) 10 mEq tablet Take 1 tablet by mouth twice daily. - Spirometers and Accessories magdalena Use 3 times a day, each time blow into it for 10 reps - XARELTO 15 mg tablet Take 15 mg by mouth daily with dinner. - brimonidine (ALPHAGAN P) 0.15 % ophthalmic solution Use 1 Drop in the right eye twice daily. - timolol maleate (TIMOPTIC) 0.5 % ophthalmic solution Use 1 Drop in the right eye twice daily. - >Zippered Compression Knee High 30-40 mm custom CUSTOM MEASURE FOR KNEE HIGH ANGELO COMPRESSION STOCKINGS, 30-40 MM, WITH ZIPPERS PLEASE. IF UNABLE, PLEASE REFER TO [facility]. DX: EDEMA - latanoprost (XALATAN) 0.005 % ophthalmic solution 1 Drop daily at bedtime. - TRAVATAN Z 0.004 % Drop daily at bedtime. - Cholecalciferol, Vitamin D3, 2,000 unit ORAL Cap Take one(1) tablet two(2) ti (more content not included)...[facility]04-12-2025 History of Present illness Narrative* Michael Sullivan APRN.BILLING AND ACCOUNTING STAFF ASSISTANT - 10/08/2024 12:11 PM EDT [facility] Subjective Reinier Elizabeth is a 88 year old female. Patient presents with: UTI HPI Reinier Elizabeth is a 88 year old female who presents with dysuria and frequency and pelvic pressure for the past 2 weeks. Was seen on 09/26 and prescribed Macrobid. After one dose she vomited. A new prescription for Cipro was sent to the pharmacy. Culture result showed resistance to ampicillin, ampicillin/sulbactam, and cipro. She finished the cipro and continued to have symptoms so was placed on Macrobid which again made her vomit. Review of Systems Constitutional: Negative for chills and fever. Respiratory: Negative. Cardiovascular: Negative. Genitourinary: Positive for dysuria, frequency and pelvic pain. Negative for hematuria. Musculoskeletal: Negative. Objective BP 132/72 Pulse 62 Temp 37.3 C (99.2 F) (Right Tympanic) Resp 16 Wt 64.5 kg (142 lb 3.2 oz) SpO2 95% BMI 26.01 kg/m PAST MEDICAL HISTORY Diagnosis Date Acquired keratoderma Lichen sclerosis Anemia Anticoagulant long-term use indication: stroke prevention atrial fibrillation At risk for bleeding associated with anticoagulants HAS-BLED score = 2 (age, bleeding) At risk for stroke [id number] = 4 (HTN, age2, female gender) Benign [...] Glaucoma - right eye left eye - [facility] . Dr Gao REPAIR FIRST ABDOMINAL WALL HERNIA 12/14/2012 2cm defect - Parietex Composite ventral patch 6cm STRESS TEST 04/14/2017 PAWAN 02/04/2018 ALLERGIES Macrobid [Nitrofurantoin Monohyd/M-Cryst], Amantadine, Capoten [Captopril], Cephalexin, Erythromycin, Hctz [Thiazides], Ivp Dye [Iodine], and Norvasc [Amlodipine Besylate] MEDICATIONS losartan (COZAAR) 50 mg tablet Take 1 tablet by mouth two times a day. atorvastatin (LIPITOR) 20 mg tablet Take 1 tablet by mouth every 48 hours. levothyroxine (LEVOXYL) 25 mcg tablet Take 1 tablet by mouth once daily. Take on empty stomach. ForThyroid omeprazole (PRILOSEC) 40 mg capsule Take 1 capsule by mouth daily before breakfast. 1/2 hr before meal. cyanocobalamin, vitamin B-12, (VITAMIN B12 ORAL) Take by mouth once daily. denosumab (PROLIA SUBCUTANEOUS) Inject subcutaneously once every 6 months. ferrous sulfate 325 mg (65 mg iron) tablet Take 1 tablet by mouth once daily. hydrALAZINE (APRESOLINE) 10 mg tablet Take 1 tablet by mouth four times daily. carvedilol (COREG) 12.5 mg tablet Take 12.5 mg by mouth two times a day with meals. potassium chloride (K-TAB) 10 mEq tablet Take [...] IF UNABLE, PLEASE REFER TO [facility]. DX: EDEMA latanoprost (XALATAN) 0.005 % ophthalmic solution 1 Drop daily at bedtime. TRAVATAN Z 0.004 % Drop daily at bedtime. Cholecalciferol, Vitamin D3, 2,000 unit ORAL Cap Take one(1) tablet two(2) times daily. sulfamethoxazole-trimethoprim (BACTRIM DS) 800-160 mg per tablet Take 1 tablet by mouth two times aday for 5 days. vibegron (GEMTESA) 75 mg tablet Take 1 tablet by mouth once daily. hydrOXYzine HCl (ATARAX) 25 mg tablet Take 1 tablet by mouth every 4 hours as needed for itching/rash. (Patient not taking: Reported on 08/02/2024) furosemide (LASIX) 20 mg tablet Take 1 tablet by mouth every other day. (Patient taking differently: Take 20 mg by mouth as needed.) FAMILY HISTORY Problem Relation Age of Onset Heart Mother Hypertension Mother Ischemic Heart Disease Mother Hypertension Father Ischemic Heart Disease Father Heart Sister By-pass, Triple Ischemic Heart Disease Sister Heart Brother Stent Ischemic Heart Disease Brother Glaucoma Brother other (Renal Stones) Daughter Heart Maternal Aunt Social History Tobacco Use Smoking status: Former Current packs/day: 0.00 Types: Cigarettes Start date: 07/06/1971 Quit date: 07/06/1976 Years since quittin.2 Smokeless tobacco: Never Tobacco comments: Quit 1969' 4-5 cig per day Vaping Use Vaping status: Never Used Substance Use Topics Alcohol use: No Drug use: No Physical Exam Vitals and nursing note reviewed. Constitutional: General: She is not in acute distress. Appearance: Normal appearance. She is not ill-appearing. Cardiovascular: Rate and Rhythm: Normal rate and regular rhythm. Heart sounds: Normal heart sounds. Pulmonary: Effort: Pulmonary effort is normal. No respiratory distress. Breath sounds: Normal breath sounds. No wheezing or rales. Abdominal: Tenderness: There is no right CVA tenderness or left CVA tenderness. Skin: General: Skin is warm and dry. Neurological: Mental Status: She is alert. ASSESSMENT/PLAN: 1. Dysuria - ICD9: 788.1, ICD10: R30.0 - SULFAMETHOXAZOLE 800 MG-TRIMETHOPRIM 160 MG TABLET- patient instructed to hold potassium while onBactrim. - UA DIP, URINE (POC) - BACTERIAL CULTURE, URINE - Follow-up with your PCP in 3-5 days if symptoms have not improved or sooner if symptoms worsen - Discussed red flags and need for immediate medical evaluation if any occur. - Discussed supportive care treatment with fluids, rest and analgesia. - Discussed expected course of illness Michael Sullivan APRN.DARSHAN History and Record Review Clinical information obtained from an independent historian. History obtained from or confirmed by:family member. External record(s) reviewed: prior outpatient record and prior labs/imaging. Findings from review of outpatient records: see note Findings from review of prior labs/imaging: see note Disposition The patient was discharged. [facility] Telephone encounter Note * Telephone Encounter - Luh George RN - 10/08/2024 10:28 AM EDT Called and let Pt and daughter know, I called patient back. No answer. Tell her to stipe the nitrofurantoin. Please ask her to hydrate as much as possible. If she can t then let her go to er. She never have urine but wanted treated. She should I come in to get urine tested. Evon. Pts daughter does not know why provider cannot call in another antibiotic for Pt. She reports so far the Pt is able to keep well hydrated. She states when she called in yesterday she let themknow thye had done an at home test and it showed she had a UTI. I told her the provider probably wanted a urine culture to see what antibiotic was needed. I told her I could get a hold of provider again as she didn't put urine testing in, I could put her in with an appointment with marta Howard could come in to EC. Pt is going to come into EC. Luh George RN [facility]04-12-2025 Miscellaneous Notes* Telephone Encounter - Luh George RN - 10/08/2024 10:28 AM EDT Called and let Pt and daughter know, I called patient back. No answer. Tell her to stipe the nitrofurantoin. Please ask her to hydrate as much as possible. If she can t then let her go to er. She never have urine but wanted treated. She should I come in to get urine tested. Evon. Pts daughter does not know why provider cannot call in another antibiotic for Pt. She reports so far the Pt is able to keep well hydrated. She states when she called in yesterday she let themknow thye had done an at home test and it showed she had a UTI. I told her the provider probably wanted a urine culture to see what antibiotic was needed. I told her I could get a hold of provider again as she didn't put urine testing in, I could put her in with an appointment with marta Howard could come in to [facility]. Pt is going to come into [facility]. Luh George RN * Telephone Encounter - Luh George RN - 10/08/2024 10:09 AM EDT Protocol recommends call PCP now. Sending message to Dr Schuler at pager # [phone]. Care plan reviewed with patient. Told Pt not to take medication until provider gets back to her. Patient voices understanding. Advised patient that if symptoms get worse to be evaluated in Urgent Care or ER. Pt requesting that provider put Macrobid on her allergy list. Reason for Disposition [1] Caller has URGENT medicine question about med that PCP or specialist prescribed AND [2] triagerunable to answer question Answer Assessment - Initial Assessment Questions 1. NAME of MEDICINE: Macrobid 100 mg BID 2. QUESTION: Pt is calling about side effect from medication. Took one dose last night at 7pm then started getting nauseous after went to bed at 2315 last night. This morning diarrhea started at 8am,states has had diarrhea x4 some liquid and some soft dark brown. 3. PRESCRIBER: Dr Schuler prescribed the medicine for a UTI. 4. SYMPTOMS: Pt is nauseous and having diarrhea and they are severe, states feels like any minute she is going to vomit. She states she keeps swallowing so she doesn't. She states she was on the samemedication about 2 weeks ago and only took 1 pill and was vomiting, shaking, and had diarrhea. Thenthey started her on Cipro. Took whole course and felt better, then 5 days later the pressure came back. 5. : Postmenopausal. Protocols used: Medication Question [id number] * Telephone Encounter - Margarette Mckenzie - 10/08/2024 9:47 AM EDT Patients daughter Zaina called said patient has been on the potty all night feel very nauseous has had some diarrhea Zaina is questioning if this is due to the Rx that was called in 10/07 for uti Can be reached at [phone] Please advise documented [facility] Telephone encounter Note * Telephone Encounter - Luh George RN - 10/08/2024 10:09 AM EDT Protocol recommends call PCP now. Sending message to Dr Schuler at pager # [phone]. Care plan reviewed with patient. Told Pt not to take medication until provider gets back to her. Patient voices understanding. Advised patient that if symptoms get worse to be evaluated in Urgent Care or ER. Pt requesting that provider put Macrobid on her allergy list. Reason for Disposition [1] Caller has URGENT medicine question about med that PCP or specialist prescribed AND [2] triagerunable to answer question Answer Assessment - Initial Assessment Questions 1. NAME of MEDICINE: Macrobid 100 mg BID 2. QUESTION: Pt is calling about side effect from medication. Took one dose last night at 7pm then started getting nauseous after went to bed at 2315 last night. This morning diarrhea started at 8am,states has had diarrhea x4 some liquid and some soft dark brown. 3. PRESCRIBER: Dr Schuler prescribed the medicine for a UTI. 4. SYMPTOMS: Pt is nauseous and having diarrhea and they are severe, states feels like any minute she is going to vomit. She states she keeps swallowing so she doesn't. She states she was on the samemedication about 2 weeks ago and only took 1 pill and was vomiting, shaking, and had diarrhea. Thenthey started her on Cipro. Took whole course and felt better, then 5 days later the pressure came back. 5. : Postmenopausal. Protocols used: Medication Question [id number] [place] 23864-12-2025 Telephone encounter Note* Telephone Encounter - Margarette Mckenzie - 10/08/2024 9:47 AM EDT Patients daughter Zaina called said patient has been on the potty all night feel very nauseous has had some diarrhea Zaina is questioning if this is due to the Rx that was called in 10/07 for uti Can be reached at [phone] Please advise [facility] Work Phone: 1(958) 535-305004-11-2025 Telephone encounter Note* Telephone Encounter - Yany Nieto MA - 10/07/2024 2:26 PM EDT The following approved medication requests have been transmitted electronically. Requested Prescriptions Signed Prescriptions Disp Refills nitrofurantoin monohydrate and macrocrystal (MACROBID) 100 mg capsule 14 capsule 0 Sig: Take 1 capsule by mouth two times a day for 7 days. Authorizing Provider: ANAY SCHULER Daughter Murtaza notified. Yany Nieto MA [facility]04-11-2025 Miscellaneous Notes* Telephone Encounter - Yany Nieto MA - 10/07/2024 2:26 PM EDT The following approved medication requests have been transmitted electronically. Requested Prescriptions Signed Prescriptions Disp Refills nitrofurantoin monohydrate and macrocrystal (MACROBID) 100 mg capsule 14 capsule 0 Sig: Take 1 capsule by mouth two times a day for 7 days. Authorizing Provider: ANAY SCHULER Daughter Murtaza notified. Yany Nieto MA * Telephone Encounter - Anay Schuler MD - 10/07/2024 1:59 PM EDT Rx macrobid to patient. Regards, Anay Schuler MD * Telephone Encounter - Faustina Hoskins, JUMA - 10/07/2024 12:55 PM EDT patients daughter is calling in stating that they believe patients UTI that she was treated for on 09/26 has returned. patient is having pressure, and urgency, and just feeling rosario crummy as she did on the . daughter does not feel patient can come into the office and is requesting that something be called into [facility]. please review and advise, daughter Murtaza needs called back with information documented in this encounter[facility]04-[facility]-2025 Telephone encounter Note * Telephone Encounter - Anay Schuler MD - 10/07/2024 1:59 PM EDT Rx macrobid to patient. RegardsAnay MD [facility]04-11-2025 Telephone encounter Note* Telephone Encounter - Faustina Hoskins, RN - 10/07/2024 12:55 PM EDT patients daughter is calling in stating that they believe patients UTI that she was treated for on 09/26 has returned. patient is having pressure, and urgency, and just feeling rosario crummy as she did on the . daughter does not feel patient can come into the office and is requesting that something be called into [facility]. please review and advise, daughter Murtaza needs called back with information [facility]04-02-2025 NoteHNO ID: [id number] Author: ?, ?, ? Service: ? Author Type: ? Type: Progress Notes Filed: 09/28/2024 09:32 Note Text: POPULATION HEALTH NAVIGATION OUTREACH Action/FYI Patient outreach for HCC gaps; AWV. Appointment notes updated. Mychart sent. Reason for Outreach Care Gap/HCC or Scheduling Wellness Visits Care Gaps due: Medicare Annual Wellness Visit Patient Contacted: Unable or unnecessary to reach patient: MyChart message sent HCC related Updated appointment notes Navigation Signature: Margie Bryant September 28, 2024 9:31 [facility]04-02-2025 History of Present illness Narrative* Margie Joseph - 09/28/2024 9:31 AM EDT POPULATION HEALTH NAVIGATION OUTREACH Action/FYI Patient outreach for HCC gaps; AWV. Appointment notes updated. Mychart sent. Reason for Outreach Care Gap/HCC or Scheduling Wellness Visits Care Gaps due: Medicare Annual Wellness Visit Patient Contacted: Unable or unnecessary to reach patient: MyChart message sent HCC related Updated appointment notes Navigation Signature: Margie Bryant September 28, 2024 9:31 AM documented in this encounterMary[facility]04-02-2025 NotePatient Outreach (NETNAV) GLENNREINIER L ([id number]) 1935 F NFR Date Time Provider Department 09/28/24 JUAN DAVIDLYNDAANAY During your visit today, we recorded the following information about you: Margie Joseph 09/28/2024 9:32 AM Signed POPULATION HEALTH NAVIGATION OUTREACH Action/FYI Patient outreach for HCC gaps; AWV. Appointment notes updated. Backblazehart sent. Reason for Outreach Care Gap/HCC or Scheduling Wellness Visits Care Gaps due: Medicare Annual Wellness Visit Patient Contacted: Unable or unnecessary to reach patient: for[MD]hart message sent HCC related Updated appointment notes Navigation Signature: Margie Bryant September 28, 2024 9:31 AM Allergies As of Date: 09/28/2024 Noted Allergy Reaction AMANTADINE 05/09/2005 2 - Rash CAPOTEN (CAPTOPRIL) 05/09/2005 2 - Rash CEPHALEXIN 05/09/2005 2 - Rash ERYTHROMYCIN 05/09/2005 2 - Rash HCTZ (THIAZIDES) 03/26/2015 14 - Other: See Comments Comments: leg cramps IVP DYE (IODINE) 05/12/2005 2 - Rash NORVASC (AMLODIPINE BESYLATE) 08/27/2017 7 - Swelling Date Reviewed: 09/26/2024 Reviewed by: Haydee Mccauley MA - Fully Assessed Reason for Visit: Population Health Navigation Outreach [3910] Cmt: Adama Fuentes Prescriptions as of 09/28/2024 - ciprofloxacin HCl (CIPRO) 250 mg tablet Take 1 tablet by mouth two times a day for 5 days. - nitrofurantoin monohydrate and macrocrystal (MACROBID) 100 mg capsule Take 1 capsule by mouth two times a day for 5 days. - losartan (COZAAR) 50 mg tablet Take 1 tablet by mouth two times a day. - atorvastatin (LIPITOR) 20 mg tablet Take 1 tablet by mouth every 48 hours. - levothyroxine (LEVOXYL) 25 mcg tablet Take 1 tablet by mouth once daily. Take on empty stomach. For Thyroid - omeprazole (PRILOSEC) 40 mg capsule Take 1 capsule by mouth daily before breakfast. 1/2 hr before meal. - cyanocobalamin, vitamin B-12, (VITAMIN B12 ORAL) Take by mouth once daily. - denosumab (PROLIA SUBCUTANEOUS) Inject subcutaneously once every 6 months. - vibegron (GEMTESA) 75 mg tablet Take 1 tablet by mouth once daily. - hydrOXYzine HCl (ATARAX) 25 mg tablet Take 1 tablet by mouth every 4 hours as needed for itching/rash. - furosemide (LASIX) 20 mg tablet Take 1 tablet by mouth every other day. - ferrous sulfate 325 mg (65 mg iron) tablet Take 1 tablet by mouth once daily. - hydrALAZINE (APRESOLINE) 10 mg tablet Take 1 tablet by mouth four times daily. - carvedilol (COREG) 12.5 mg tablet Take 12.5 mg by mouth two times a day with meals. - potassium chloride (K-TAB) 10 mEq tablet Take 1 tablet by mouth twice daily. - Spirometers and Accessories magdalena Use 3 times a day, each time blow into it for 10 reps - XARELTO 15 mg tablet Take 15 mg by mouth daily with dinner. - brimonidine (ALPHAGAN P) 0.15 % ophthalmic solution Use 1 Drop in the right eye twice daily. - timolol maleate (TIMOPTIC) 0.5 % ophthalmic solution Use 1 Drop in the right eye twice daily. - >Zippered Compression Knee High 30-40 mm custom CUSTOM MEASURE FOR KNEE HIGH ANGELO COMPRESSION STOCKINGS, 30-40 MM, WITH ZIPPERS PLEASE. IF UNABLE, PLEASE REFER TO [facility]. DX: EDEMA - latanoprost (XALATAN) 0.005 % ophthalmic solution 1 Drop daily at bedtime. - TRAVATAN Z 0.004 % Drop daily at bedtime. - Cholecalciferol, Vitamin D3, 2,000 unit ORAL Cap Take one(1) tablet two(2) times daily. 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 Urgency of urination [R39.15] 02/20/2009 06/14/2020 Urge incontinence [N39.41] 02/20/2009 08/06/2016 Female stress incontinence [N39.3] 02/20/2009 08/06/2016 Nocturia [R35.1] 02/20/2009 08/06/2016 Symptomatic menopausal or female climacteric st*02/20/2009 08/06/2016 Postmenopausal atrophic vaginitis [N95.2] 02/20/2009 06/14/2020 Disorder of bone and cartilage, unspecified [M8*02/20/2009 03/24/2012 Osteoporosis with current pathological fracture*06/10/2010 Vitamin D deficiency [E55.9] 06/13/2010 Incisional hernia [K43.2] 12/14/2012 08/06/2016 Mixed hyperlipidemia [E78.2] 08/06/2016 Pedal edema [R60.0] 12/04/2016 Pulmonary hypertension (HCC) [I27.20] 05/07/2017 Vulvar intraepithelial neoplasia III (LARY III) *06/14/2020 Stage 3 chronic kidney disease (HCC) [N18.30] 06/11/2021 Hypertensive kidney disease with stage 3 chroni*12/06/2021 Permanent atrial fibrillation (HCC) [I48.21] 04/28/2022 Gastrointestinal hemorrhage [K92.2] 06/11/2022 Hypomagnesemia [E83.42] (more content not included)...[facility]04-01-2025 Telephone encounter Note* Telephone Encounter - Jazmine Head LPN - 09/27/2024 4:21 PM EDT Called and spoke to Murtaza patient daughter, voiced understanding Jazmine Head LPN September 27, 2024 4:21 PM [facility]04-01-2025 Miscellaneous Notes* Telephone Encounter - Jazmine HeadSHERIN - 09/27/2024 4:21 PM EDT Called and spoke to Murtaza patient daughter, voiced understanding Jazmine HeadNEMON September 27, 2024 4:21 PM * Telephone Encounter - Anay Schuler MD - 09/27/2024 1:03 PM EDT I sent a new rx, cipro. I hope that helps Regards, Anay Schuler MD * Telephone Encounter - Yolette Pérez RN - 09/27/2024 10:32 AM EDT Patient's daughter Murtaza calls and reports that patient took first dose of Macrobid for UTI yesterday. Murtaza reports that patient was vomiting and shaky all evening last night after taking medication. Patient is feeling better this morning and not vomited yet this morning. Murtaza has not given Macrobid to patient yet due to patient getting sick last night. Murtaza asking if provider wants to prescribe a different antibiotic? Patient has had UTI symptoms since Thursday. Patient was seen in office yesterday. Culture is still pending. Latest Ref Rng 09/26/2024 GLUCOSE UA (POCT) Negative mg/dL Negative BILIRUBIN UA (POCT) Negative Negative KETONE UA (POCT) Negative mg/dL Negative SPECIFIC GRAVITY UA (POCT) 1.005 - 1.030 1.020 HEMOGLOBIN/BLOOD UA (POCT) Negative Trace-intact ! PH UA (POCT) 4.5 - 8.0 5.5 PROTEIN UA (POCT) Negative mg/dL 30 ! UROBILINOGEN UA (POCT) Normal E.U./dL 0.2 NITRITE UA (POCT) Negative Negative LEUKOCYTES UA (POCT) Negative Moderate ! COLOR UA (POCT) Yellow CLARITY UA (POCT) Clear Please review and advise, Yolette Pérez RN documented in this encounter[facility]04-[facility]25 Telephone encounter Note * Telephone Encounter - Anay Schuler MD - 09/27/2024 1:03 PM EDT I sent a new rx, cipro. I hope that helps Regards, Anay Schuler MD [facility]04-01-2025 Telephone encounter Note* Telephone Encounter - Yolette Pérez RN - 09/27/2024 10:32 AM EDT Patient's daughter Murtaza calls and reports that patient took first dose of Macrobid for UTI yesterday. Murtaza reports that patient was vomiting and shaky all evening last night after taking medication. Patient is feeling better this morning and not vomited yet this morning. Murtaza has not given Macrobid to patient yet due to patient getting sick last night. Murtaza asking if provider wants to prescribe a different antibiotic? Patient has had UTI symptoms since Thursday. Patient was seen in office yesterday. Culture is still pending. Latest Ref Rng 09/26/2024 GLUCOSE UA (POCT) Negative mg/dL Negative BILIRUBIN UA (POCT) Negative Negative KETONE UA (POCT) Negative mg/dL Negative SPECIFIC GRAVITY UA (POCT) 1.005 - 1.030 1.020 HEMOGLOBIN/BLOOD UA (POCT) Negative Trace-intact ! PH UA (POCT) 4.5 - 8.0 5.5 PROTEIN UA (POCT) Negative mg/dL 30 ! UROBILINOGEN UA (POCT) Normal E.U./dL 0.2 NITRITE UA (POCT) Negative Negative LEUKOCYTES UA (POCT) Negative Moderate ! COLOR UA (POCT) Yellow CLARITY UA (POCT) Clear Please review and advise, Yolette Pérez RN [facility]03-31-2025 NoteHNO ID: [id number] Author: SILVIO DRAKE APRN.BILLING AND ACCOUNTING STAFF ASSISTANT Service: ? Author Type: Nurse Practitioner Type: Progress Notes Filed: 09/26/2024 14:11 Note Text: CC: Patient presents with: Voiding Pressure Studies Urinary Frequency: Urinary frequency, pressure x 2 days HPI Reinier Elizabeth is a 88 year old female who presents today for increased urinary frequency. Since Thursday night she has had increased urination with pain with urination and dark urine. Denies fever, chills, nausea, vomiting, bowel changes, blood in urine, shortness of breath, or chest pain. Took a home test today that indicated a urinary tract infection. No recent antibiotic use. REVIEW OF SYSTEMS See HPI PAST MEDICAL HISTORY Diagnosis Date Acquired keratoderma Lichen sclerosis Anemia Anticoagulant long-term use indication: stroke prevention atrial fibrillation At risk for bleeding associated with anticoagulants HAS-BLED score = 2 (age, bleeding) At risk for stroke [id number] = 4 (HTN, age2, female gender) Benign [...] Glaucoma - right eye left eye - [facility] . Dr Gao REPAIR FIRST ABDOMINAL WALL HERNIA 12/14/2012 2cm defect - Parietex Composite ventral patch 6cm STRESS TEST 04/14/2017 PAWAN 02/04/2018 ALLERGIES Amantadine, Capoten [Captopril], Cephalexin, Erythromycin, Hctz [Thiazides], Ivp Dye [Iodine], and Norvasc [Amlodipine Besylate] MEDICATIONS losartan (COZAAR) 50 mg tablet Take 1 tablet by mouth two times a day. atorvastatin (LIPITOR) 20 mg tablet Take 1 tablet by mouth every 48 hours. levothyroxine (LEVOXYL) 25 mcg tablet Take 1 tablet by mouth once daily. Take on empty stomach. For Thyroid omeprazole (PRILOSEC) 40 mg capsule Take 1 capsule by mouth daily before breakfast. 1/2 hr before meal. cyanocobalamin, vitamin B-12, (VITAMIN B12 ORAL) Take by mouth once daily. denosumab (PROLIA SUBCUTANEOUS) Inject subcutaneously once every 6 months. vibegron (GEMTESA) 75 mg tablet Take 1 tablet by mouth once daily. hydrOXYzine HCl (ATARAX) 25 mg tablet Take 1 tablet by mouth every 4 hours as needed for itching/rash. (Patient not taking: Reported on 08/02/2024) furosemide (LASIX) 20 mg tablet Take 1 tablet by mouth every other day. (Patient taking differently: Take 20 mg by mouth as needed.) ferrous sulfate 325 mg (65 mg iron) tablet Take 1 tablet by mouth once daily. hydrALAZINE (APRESOLINE) 10 mg tablet Take 1 tablet by mouth four times daily. carvedilol (COREG) 12.5 mg tablet Take 12.5 mg by mouth two times a day with meals. potassium chloride (K-TAB) 10 mEq tablet Take [...] IF UNABLE, PLEASE REFER TO [facility]. DX: EDEMA latanoprost (XALATAN) 0.005 % ophthalmic solution 1 Drop daily at bedtime. TRAVATAN Z 0.004 % Drop daily at bedtime. Cholecalciferol, Vitamin D3, 2,000 unit ORAL Cap Take one(1) tablet two(2) times daily. FAMILY HISTORY Problem Relation Age of Onset Heart Mother Hypertension Mother Ischemic Heart Disease Mother Hypertension Father Ischemic Heart Disease Father Heart Sister By-pass, Triple Ischemic Heart (more content not included)...[facility] 09-26-2024 History of Present illness Narrative* Silvio Drake APRN.BILLING AND ACCOUNTING STAFF ASSISTANT - 09/26/2024 1:54 PM EDT CC: Patient presents with: Voiding Pressure Studies Urinary Frequency: Urinary frequency, pressure x 2 days HPI Reinier Elizabeth is a 88 year old female who presents today for increased urinary frequency. Since Thursday night she has had increased urination with pain with urination and dark urine. Denies fever, chills, nausea, vomiting, bowel changes, blood in urine, shortness of breath, or chest pain. Took a home test today that indicated a urinary tract infection. No recent antibiotic use. REVIEW OF SYSTEMS See HPI PAST MEDICAL HISTORY Diagnosis Date Acquired keratoderma Lichen sclerosis Anemia Anticoagulant long-term use indication: stroke prevention atrial fibrillation At risk for bleeding associated with anticoagulants HAS-BLED score = 2 (age, bleeding) At risk for stroke [id number] = 4 (HTN, age2, female gender) Benign [...] 02/05/2018 LIG/TRNSXJ FLP TUBE ABDL/VAG APPR UNI/BI 1975 Tubal ligation PAST SURGICAL HISTORY OF 09/2000 CARDIAC CATH. PAST SURGICAL HISTORY OF 2018 Glaucoma - May. right eye Jun. left eye - [facility] . Dr Gao REPAIR FIRST ABDOMINAL WALL HERNIA 12/14/2012 2cm defect - Parietex Composite ventral patch 6cm STRESS TEST 04/14/2017 PAWAN 02/04/2018 ALLERGIES Amantadine, Capoten [Captopril], Cephalexin, Erythromycin, Hctz [Thiazides], Ivp Dye [Iodine], and Norvasc [Amlodipine Besylate] MEDICATIONS losartan (COZAAR) 50 mg tablet Take 1 tablet by mouth two times a day. atorvastatin (LIPITOR) 20 mg tablet Take 1 tablet by mouth every 48 hours. levothyroxine (LEVOXYL) 25 mcg tablet Take 1 tablet by mouth once daily. Take on empty stomach. ForThyroid omeprazole (PRILOSEC) 40 mg capsule Take 1 capsule by mouth daily before breakfast. 1/2 hr before meal. cyanocobalamin, vitamin B-12, (VITAMIN B12 ORAL) Take by mouth once daily. denosumab (PROLIA SUBCUTANEOUS) Inject subcutaneously once every 6 months. vibegron (GEMTESA) 75 mg tablet Take 1 tablet by mouth once daily. hydrOXYzine HCl (ATARAX) 25 mg tablet Take 1 tablet by mouth every 4 hours as needed for itching/rash. (Patient not taking: Reported on 08/02/2024) furosemide (LASIX) 20 mg tablet Take 1 tablet by mouth every other day. (Patient taking differently: Take 20 mg by mouth as needed.) ferrous sulfate 325 mg (65 mg iron) tablet Take 1 tablet by mouth once daily. hydrALAZINE (APRESOLINE) 10 mg tablet Take 1 tablet by mouth four times daily. carvedilol (COREG) 12.5 mg tablet Take 12.5 mg by mouth two times a day with meals. potassium chloride (K-TAB) 10 mEq tablet Take [...] IF UNABLE, PLEASE REFER TO [facility]. DX: EDEMA latanoprost (XALATAN) 0.005 % ophthalmic solution 1 Drop daily at bedtime. TRAVATAN Z 0.004 % Drop daily at bedtime. Cholecalciferol, Vitamin D3, 2,000 unit ORAL Cap Take one(1) tablet two(2) times daily. FAMILY HISTORY Problem Relation Age of Onset Heart Mother Hypertension Mother Ischemic Heart Disease Mother Hypertension Father Ischemic Heart Disease Father Heart Sister By-pass, Triple Ischemic Heart Disease Sister Heart Brother Stent Ischemic Heart Disease Brother Glaucoma Brother other (Renal Stones) Daughter Heart Maternal Aunt Social History Tobacco Use Smoking status: Former Current packs/day: 0.00 Types: Cigarettes Start date: 07/06/1971 Quit date: 07/06/1976 Years since quittin.2 Smokeless tobacco: Never Tobacco comments: Quit 4-5 cig per day Vaping Use Vaping status: Never Used Substance Use Topics Alcohol use: No Drug use: No PHYSICAL EXAM BP 138/82 Pulse 60 Temp 36.2 C (97.1 F) (Temporal) Resp 16 Wt 63.5 kg (140 lb) SpO2 100% BMI 25.61 kg/m General Appearance: well appearing, in no acute distress, alert Lungs: Lungs clear to auscultation. No wheezing, rhonchi, rales. Heart: RRR without murmur, gallop, or rubs. No ectopy Abdomen: Abdomen soft, non-tender. Bowel sounds normal. No masses, organomegaly Health maintenance reviewed with patient: Depression Screening Never done Anxiety Screening Never done Shingrix Vaccine(1 of 2) Never done RSV Vaccine(1 - 1-dose 75+ series) Never done DTaP,Tdap,Td Vaccine(3 - Td or Tdap) due on 06/07/2023 Influenza Vaccine(1) due on 02/28/2024 Covid-19 Vaccine( season) due on 02/28/2024 Advance Directive Discussion due on 06/29/2024 Bone Density Screening due on 01/12/2025 Diabetes Screening due on 09/13/2027 Pneumococcal Vaccine: 50+ Completed DATA REVIEWED: No new labs ASSESSMENT/PLAN: 1. Frequency of urination - ICD9: 788.41, ICD10: R35.0 (primary diagnosis) With the leuks, blood in urine and symptoms will start treatment with macrobid and switch treatmentif indicated by culture Follow up if no improvement in symptoms or further concerns. - UA DIP, URINE (POC) - NITROFURANTOIN MONOHYDRATE & MACROCRYSTAL 100 MG ORAL CAP - BACTERIAL CULTURE, URINE 2. Dysuria - ICD9: 788.1, ICD10: R30.0 As above - UA DIP, URINE (POC) - NITROFURANTOIN MONOHYDRATE & MACROCRYSTAL 100 MG ORAL CAP - BACTERIAL CULTURE, URINE 3. Leukocytes in urine - ICD9: 791.7, ICD10: R82.998 See #1 - UA DIP, URINE (POC) - NITROFURANTOIN MONOHYDRATE & MACROCRYSTAL 100 MG ORAL CAP - BACTERIAL CULTURE, URINE Prescription instructions reviewed with patient as applicable. Potential red flag symptoms discussed with the patient. Reviewed appropriate action plan to take if red flag symptoms occur. Patient agreeable to treatment plan. Silvio Drake APRN.DARSHAN documented in this encounterMarymount Hospital03-14-2025 Instructions* Patient Instructions* Anay Schuler MD - 09/09/2024 4:00 PM EDT - Continue taking Hydralazine 50 mg three times a day as prescribed. - Monitor your blood pressure readings regularly and keep a log. - Take your evening medication at a consistent time each night, preferably earlier than 10:00 pm tohelp manage nighttime blood pressure spikes. - Keep your clinician updated on your blood pressure readings every few days. - Maintain your current diet and exercise routine, avoiding high-sodium foods. - Complete the blood work ordered by your clinician to check for adrenal gland function. - Follow up with your commonwealth attorney as needed for further evaluation and management of your blood pressure and any arrhythmias. documented in this encounterMarymount Hospital03-14-2025 History of Present illness Narrative* Anay Schuler MD - 09/09/2024 3:20 PM EDT Reason for Visit Reinier is an 88-year-old female with a history of HTN and atrial fibrillation, accompanied by her daughter, presenting for follow-up after a recent ER visit for accelerated hypertension. HPI Reinier is an 88-year-old female with a history of HTN and atrial fibrillation, accompanied by her daughter, presenting for follow-up after a recent ER visit for accelerated hypertension. Accelerated Hypertension: - Recent ER visit for accelerated hypertension; BP reached 223/107 mmHg. - ER treatment included clonidine; BP was still in the 180s upon discharge. - Noted BP spike to 190 mmHg during a vascular test on her legs, leading to the ER visit. - BP readings fluctuate, often higher at night: - 08/29: 129/76 mmHg (morning), 188 mmHg (evening). - 08/30: 168 mmHg (morning and afternoon). - 08/31: 184 mmHg (1100), 180 mmHg (10 minutes later). - 09/01: 178 mmHg (morning), 186 mmHg (noon). - 09/02: 211 mmHg. - 09/06: 159 mmHg (1100). - 09/07: 137 mmHg (1100), 184 mmHg (evening). - Today: 122/70 mmHg. - Daughter monitors BP and HR; noted HR as low as 41 bpm. - No associated headaches or pain. - Recent increase in hydralazine to 50 mg TID; previously on 25 mg. - Takes Coreg 12.5 mg at 0900 and 2300, Cozaar, and potassium daily. - Diet includes grapes, bananas, oatmeal, and occasional macaroni and cheese; avoids adding salt. - Exercises regularly, including cycling. Atrial Fibrillation: - History of atrial fibrillation; taking Eliquis. - Daughter noted irregular HR on her watch, prompting ER visit. - ER EKG showed an extra little arrhythmia. - No recent hot flashes. Social History Tobacco Use Smoking status: Former Current packs/day: 0.00 Types: Cigarettes Start date: 07/06/1971 Quit date: 07/06/1976 Years since quittin.2 Smokeless tobacco: Never Tobacco comments: Quit 4-5 cig per day Vaping Use Vaping status: Never Used Substance Use Topics Alcohol use: No Drug use: No Past medical history, appointments, medications, allergies reviewed. Pertinent Lab/Diagnostic Studies are reviewed and discussed today @[facility] Health Maintenance Depression Screening Anxiety Screening Shingrix Vaccine(1 of 2) RSV Vaccine(1 - 1-dose 75+ series) DTaP,Tdap,Td Vaccine(3 - Td or Tdap) Influenza Vaccine(1) Covid-19 Vaccine( season) Advance Directive Discussion@ Review Of Systems Constitutional: (+) fatigue Head: (-) headache Physical Exam BP 122/70 Pulse (!) 58 Resp 12 Wt 63 kg (139 lb) SpO2 97% BMI 25.42 kg/m GENERAL: NAD, alert and oriented. SKIN: Unremarkable, no rash or skin lesions. HEAD: Normocephalic. EYES: PERRLA, EOMI, conjunctiva clear. EARS: External ears normal, canals clear, TM's normal. NOSE/SINUSES: Nares normal. Septum midline. OROPHARYNX: Lips, mucosa, and tongue normal, good dentition. No oral lesions noted. NECK: Supple, no lymphadenopathy, normal thyroid, no carotid bruits. LUNGS: Clear to auscultation bilaterally, no wheezes/rhonchi/rales. HEART: Regular rate and rhythm, no murmurs. No ectopy. EXTREMITIES: Normal, no deformities, no skin discoloration, no edema. NEURO: Awake, alert and oriented x3, cranial nerves II-XII grossly intact, normal gait, no involuntary motions. Assessment and Plan 1. Accelerated hypertension (I10) 2. Uncontrolled hypertension (I10) - Recent ER visit for accelerated hypertension; treated with clonidine. - Current antihypertensive regimen includes carvedilol 12.5 mg BID, losartan, and hydralazine 50 mgTID (recently increased from 25 mg TID). - Blood pressure readings show significant fluctuations, with higher readings noted in the evening. - Discussed potential addition of spironolactone to manage fluctuations; explained its mechanism asa potassium-sparing diuretic and its effects on aldosterone. - Ordered blood work to evaluate adrenal function and aldosterone levels. - Advised patient to continue current medication regimen and monitor blood pressure closely. - Patient's daughter to keep me updated on blood pressure readings every few days. 3. Paroxysmal atrial fibrillation (HCC) (I48.0) - History of paroxysmal atrial fibrillation; currently managed with carvedilol and Xarelto. - Recent episodes of irregular heart rate noted by patient's daughter using a smartwatch; EKG in ERshowed extra little arrhythmia. - No current symptoms of palpitations or dyspnea. - Continue current medications including Xarelto. - Will perform an EKG today to assess current cardiac rhythm. - asked her to discuss with cardiology Voice recognition software was used to compose this office note. Please excuse any unintended typographical errors. The patient consented to the use of [employer] software for draft documentation of the visit consistent with [facility] s Notice of Privacy Practices. Anay Schuler MD documented in this encounterMarymount Hospital03-14-2025 NoteHNO ID: [id number] Author: ANAY SCHULER MD Service: ? Author Type: Physician Type: Progress Notes Filed: 09/09/2024 17:28 Note Text: Reason for Visit Reinier is an 88-year-old female with a history of HTN and atrial fibrillation, accompanied by her daughter, presenting for follow-up after a recent ER visit for accelerated hypertension. HPI Reinier is an 88-year-old female with a history of HTN and atrial fibrillation, accompanied by her daughter, presenting for follow-up after a recent ER visit for accelerated hypertension. Accelerated Hypertension: - Recent ER visit for accelerated hypertension; BP reached 223/107 mmHg. - ER treatment included clonidine; BP was still in the 180s upon discharge. - Noted BP spike to 190 mmHg during a vascular test on her legs, leading to the ER visit. - BP readings fluctuate, often higher at night: - 3: 129/76 mmHg (morning), 188 mmHg (evening). - 08/30: 168 mmHg (morning and afternoon). - 08/31: 184 mmHg (1100), 180 mmHg (10 minutes later). - 09/01: 178 mmHg (morning), 186 mmHg (noon). - 09/02: 211 mmHg. - 09/06: 159 mmHg (1100). - 09/07: 137 mmHg (1100), 184 mmHg (evening). - Today: 122/70 mmHg. - Daughter monitors BP and HR; noted HR as low as 41 bpm. - No associated headaches or pain. - Recent increase in hydralazine to 50 mg TID; previously on 25 mg. - Takes Coreg 12.5 mg at 0900 and 2300, Cozaar, and potassium daily. - Diet includes grapes, bananas, oatmeal, and occasional macaroni and cheese; avoids adding salt. - Exercises regularly, including cycling. Atrial Fibrillation: - History of atrial fibrillation; taking Eliquis. - Daughter noted irregular HR on her watch, prompting ER visit. - ER EKG showed an extra little arrhythmia. - No recent hot flashes. Social History Tobacco Use Smoking status: Former Current packs/day: 0.00 Types: Cigarettes Start date: 07/06/1971 Quit date: 07/06/1976 Years since quittin.2 Smokeless tobacco: Never Tobacco comments: Quit 4-5 cig per day Vaping Use Vaping status: Never Used Substance Use Topics Alcohol use: No Drug use: No Past medical history, appointments, medications, allergies reviewed. Pertinent Lab/Diagnostic Studies are reviewed and discussed today @[facility] Health Maintenance Depression Screening Anxiety Screening Shingrix Vaccine(1 of 2) RSV Vaccine(1 - 1-dose 75+ series) DTaP,Tdap,Td Vaccine(3 - Td or Tdap) Influenza Vaccine(1) Covid-19 Vaccine( season) Advance Directive Discussion@ Review Of Systems Constitutional: (+) fatigue Head: (-) headache Physical Exam BP 122/70 Pulse (!) 58 Resp 12 Wt 63 kg (139 lb) SpO2 97% BMI 25.42 kg/m? GENERAL: NAD, alert and oriented. SKIN: Unremarkable, no rash or skin lesions. HEAD: Normocephalic. EYES: PERRLA, EOMI, conjunctiva clear. EARS: External ears normal, canals clear, TM's normal. NOSE/SINUSES: Nares normal. Septum midline. OROPHARYNX: Lips, mucosa, and tongue normal, good dentition. No oral lesions noted. NECK: Supple, no lymphadenopathy, normal thyroid, no carotid bruits. LUNGS: Clear to auscultation bilaterally, no wheezes/rhonchi/rales. HEART: Regular rate and rhythm, no murmurs. No ectopy. EXTREMITIES: Normal, no deformities, no skin discoloration, no edema. NEURO: Awake, alert and oriented x3, cranial nerves II-XII grossly intact, normal gait, no involuntary motions. Assessment and Plan 1. Accelerated hypertension (I10) 2. Uncontrolled hypertension (I10) - Recent ER visit for accelerated hypertension; treated with clonidine. - Current antihypertensive regimen includes carvedilol 12.5 mg BID, losartan, and hydralazine 50 mg TID (recently increased from 25 mg TID). - Blood pressure readings show significant fluctuations, with higher readings noted in the evening. - Discussed potential addition of spironolactone to manage fluctuations; explained its mechanism as a potassium-sparing diuretic and its effects on aldosterone. - Ordered blood work to evaluate adrenal function and aldosterone levels. - Advised patient to continue current medication regimen and monitor blood pressure closely. - Patient's daughter to keep me updated on blood pressure readings every few days. 3. Paroxysmal atrial fibrillation (HCC) (I48.0) - History of paroxysmal atrial fibrillation; currently managed with carvedilol and Xarelto. - Recent episodes of irregular heart rate noted by patient's daughter using a smartwatch; EKG in ER showed extra little arrhythmia. - No current symptoms of palpitations or dyspnea. - Continue current medications including Xarelto. - Will perform an EKG today to assess current cardiac rhythm. - asked her to discuss with cardiology Voice recognition software was used to compose this office note. Please excuse any unintended typographical errors. The patient consented to the use of ambient AI software for draft documentation (more content not included)...[facility]02-04-2025 NoteHNO ID: [id number] Author: ANAY SCHULER MD Service: ? Author Type: Physician Type: Progress Notes Filed: 08/02/2024 18:39 Note Text: Reason for Visit Patient presents with: Recheck Reinier Elizabeth is a 86 year old female who presents here today for Above Complaints.. Health Maintenance ADVANCE DIRECTIVE DISCUSSION HPI Here with her daughter zaina, today and notes that she is feeling pretty well and has no major concerns. Reinier is a 86-year-old woman with a past medical history of hypertension, hyperlipidemia, pulmonary hypertension, atrial fibrillation likely from the pulmonary hypertension sequelae, CKD and anemia from recurrent GI bleeds supposedly from from anticoagulation. 01/19: In the past year the patient was started on Prolia injections for osteoporosis. Was treated for anemia, there was some concern with hypertension and heart disease. In the past year we have had [...] is a little better. She is on cozaar 50, coreg 12.5, lasix, 20 mgs daily, 3 days a week in addition to the hydralazine. Lasix was decreased because of a worsening GFR more swelling now that the lasix has been cut back, She does use compression stockings She is exercising using the bike at home. Taking the potassium We have not had her labs done in the past 2 to 3 months so we would like to recheck her thyroid along with her blood counts especially to check what her CBC is like. She has an upcoming EGD by . Friend the cloth baler. Her brother calls her calls her every day, visits every Thursday. Has a decent flower bed. 05/30/2024: To increase coreg to 2 in the morning and one at night time as bp is not well controlled. She did pursue to get the hearing aids. 08/02/24: Reviewed labs, Tsh, lipid is normal . Hb Is a little improved, creat is stable. Main concern today is that her legs are feeling tired after a certain amount of walking, this happens frequently but not very consistently. Gemtesa is working for her but it is too expensive and she cannot it as she is on xarelto and the eye drops. No problem-specific Assessment AND Plan notes found for this encounter. PAST SURGICAL HISTORY Procedure Laterality Date COLONOSCOPY [...] - May. right eye left eye - [facility] . Dr Gao REPAIR FIRST ABDOMINAL WALL HERNIA 12/14/2012 2cm defect - Parietex Composite ventral patch 6cm STRESS TEST 04/14/2017 PAWAN 02/04/2018 FAMILY HISTORY Problem Relation Age of Onset Heart Mother Hypertension Mother Ischemic Heart Disease Mother Hypertension Father Ischemic Heart Disease Father Heart Sister By-pass, Triple Ischemic Heart Disease Sister Heart Brother Stent Ischemic Heart Disease Brother Glaucoma Brother other (Renal Stones) Daughter Heart Maternal Aunt Social History Tobacco Use Smoking status: Former Current packs/day: 0.00 Types: Cigarettes Start date: 07/06/1971 Quit date: 07/06/1976 Years since quittin.1 Smokeless tobacco: Never Tobacco comments: Quit 4-5 cig per day Vaping Use Vaping status: Never Used Substance Use Topics Alcohol use: No Drug use: No Past medical history, appointments, medications, allergies reviewed. Pertinent Lab/Diagnostic Studies are reviewed and discussed today Current Outpatient Medications: losartan (COZAAR) 50 mg tablet atorvastatin (LIPITOR) 20 mg tablet levothyroxine (LEVOXYL) 25 mcg tablet omeprazole (PRILOSEC) 40 mg capsule cyanocobalamin, vitamin B-12, (VITAMIN B12 ORAL) denosumab (PROLIA SUBCUTANEOUS) vibegron (GEMTESA) 75 mg tablet furosemide (LASIX) 20 mg tablet ferrous sulfate 325 mg (65 mg iron) tablet hydrALAZINE (APRESOLINE) 10 mg tablet carvedilol (COREG) 12.5 mg tablet potassium chloride (K-TAB) 10 mEq tablet [employer] magdalena XARELTO 15 mg tablet brimonidine (ALPHAGAN P) 0.15 % ophthalmic solution timolol maleate (TIMOPTIC) 0.5 % ophthalmic solution >Zippered Compression Knee High 30-40 mm custom latanoprost (XALATAN) 0.005 % ophthalmic solution TRAVATAN Z 0.004 % Drop Cholecalciferol, Vitamin D3, 2,000 unit ORAL Cap hydrOXYzine HCl (AT (more content not included)...[facility] 08-02-2024 History of Present illness Narrative* Anay Schuler MD - 08/02/2024 2:13 PM EST Reason for Visit Patient presents with: Recheck Reinier Elizabeth is a 86 year old female who presents here today for Above Complaints.. Health Maintenance ADVANCE DIRECTIVE DISCUSSION HPI Here with her daughter zaina, today and notes that she is feeling pretty well and has no major concerns. Reinier is a 86-year-old woman with a past medical history of hypertension, hyperlipidemia, pulmonaryhypertension, atrial fibrillation likely from the pulmonary hypertension sequelae, CKD and anemia from recurrent GI bleeds supposedly from from anticoagulation. 01/19: In the past year the patient was started on Prolia injections for osteoporosis. Was treated for anemia, there was some concern with hypertension and heart disease. In the past year we have had a hard time regulating her blood pressure after all hospitalizations from A-fib with RVR, cardioversion and addition of different medications along with anemia and issueswith hypovolemia her Bp has been up and down a lot . Currently her systolic is in the high 140 to 150 range. She just saw Dr Sewell who put her on the hydralazine 3 times a day and bp is a little better. She is on cozaar 50, coreg 12.5, lasix, 20 mgs daily, 3 days a week in addition to the hydralazine. Lasix was decreased because of a worsening GFR more swelling now that the lasix has been cut back,She does use compression stockings She is exercising using the bike at home. Taking the potassium We have not had her labs done in the past 2 to 3 months so we would like to recheck her thyroid along with her blood counts especially to check what her CBC is like. She has an upcoming EGD by . Friend the cloth baler. Her brother calls her calls her every day, visits every Thursday. Has a decent flower bed. 05/30/2024: To increase coreg to 2 in the morning and one at night time as bp is not well controlled. She did pursue to get the hearing aids. 08/02/24: Reviewed labs, Tsh, lipid is normal . Hb Is a little improved, creat is stable. Main concern today is that her legs are feeling tired after a certain amount of walking, this happens frequently but not very consistently. Gemtesa is working for her but it is too expensive and she cannot it as she is on xarelto and the eye drops. No problem-specific Assessment & Plan notes found for this encounter. PAST SURGICAL HISTORY Procedure Laterality Date COLONOSCOPY [...] May. right eye Jun. left eye - [facility] . Dr Gao REPAIR FIRST ABDOMINAL WALL HERNIA 12/14/2012 2cm defect - Parietex Composite ventral patch 6cm STRESS TEST 04/14/2017 PAWAN 02/04/2018 FAMILY HISTORY Problem Relation Age of Onset Heart Mother Hypertension Mother Ischemic Heart Disease Mother Hypertension Father Ischemic Heart Disease Father Heart Sister By-pass, Triple Ischemic Heart Disease Sister Heart Brother Stent Ischemic Heart Disease Brother Glaucoma Brother other (Renal Stones) Daughter Heart Maternal Aunt Social History Tobacco Use Smoking status: Former Current packs/day: 0.00 Types: Cigarettes Start date: 07/06/1971 Quit date: 07/06/1976 Years since quittin.1 Smokeless tobacco: Never Tobacco comments: Quit 1969' 4-5 cig per day Vaping Use Vaping status: Never Used Substance Use Topics Alcohol use: No Drug use: No Past medical history, appointments, medications, allergies reviewed. Pertinent Lab/Diagnostic Studies are reviewed and discussed today Current Outpatient Medications: losartan (COZAAR) 50 mg tablet atorvastatin (LIPITOR) 20 mg tablet levothyroxine (LEVOXYL) 25 mcg tablet omeprazole (PRILOSEC) 40 mg capsule cyanocobalamin, vitamin B-12, (VITAMIN B12 ORAL) denosumab (PROLIA SUBCUTANEOUS) vibegron (GEMTESA) 75 mg tablet furosemide (LASIX) 20 mg tablet ferrous sulfate 325 mg (65 mg iron) tablet hydrALAZINE (APRESOLINE) 10 mg tablet carvedilol (COREG) 12.5 mg tablet potassium chloride (K-TAB) 10 mEq tablet [employer] Access[employer] magdalena XARELTO 15 mg tablet brimonidine (ALPHAGAN P) 0.15 % ophthalmic solution timolol maleate (TIMOPTIC) 0.5 % ophthalmic solution >Zippered Compression Knee High 30-40 mm custom latanoprost (XALATAN) 0.005 % ophthalmic solution TRAVATAN Z 0.004 % Drop Cholecalciferol, Vitamin D3, 2,000 unit ORAL Cap hydrOXYzine HCl (ATARAX) 25 mg tablet Review of Systems CONSTITUTIONAL: No fevers, chills [...] or numbness of concern. Physical Exam BP 124/78 (BP Site: Right Arm) Pulse 67 Ht 157.5 cm (5' 2) Wt 64 kg (141 lb 3.2 oz) SpO2 98% BMI 25.83 kg/m General appearance: Well appearing, alert, in no acute distress, well nourished. Skin: Skin color, texture, turgor normal, no suspicious rashes or lesions Head: Normocephalic, no masses, lesions, tenderness or abnormalities Eyes: Anicteric sclera. Pupils are equally round and reactive to light. Extraocular movements are intact. Lungs: Lungs clear to auscultation. No wheezing, rhonchi, rales Heart: RRR without murmur, gallop, or rubs. Extremities: decreased pulses in the b/l lower extremities ASSESSMENT/PLAN: 1. Exercise-induced leg fatigue - ICD9: 729.89, ICD10: M62.89 (primary diagnosis) - PVR ANK PRESS RIO VAS LAB - PVR ANK PRESS W/EXC RIO VAS LAB 2. Stage 3a chronic kidney disease (HCC) - ICD9: 585.3, ICD10: N18.31 - eGFR: 36 Stable - Counseled on avoiding NSAIDs, adequate hydration 3. Gastroesophageal reflux disease, unspecified whether esophagitis present - ICD9: 530.81, ICD10: K21.9 - Discussed lifestyle modifications including losing weight, limiting caffeine, no meals three hours before sleep, and head of bed elevation 4. Mixed hyperlipidemia - ICD9: 272.2, ICD10: E78.2 - Controlled - Counseled on healthy diet and regular exercise 5. Anemia, unspecified type - ICD9: 285.9, ICD10: D64.9 Is improved. 6. Hypothyroidism, unspecified type - ICD9: 244.9, ICD10: E03.9 - Instructed patient on importance of taking on an empty stomach either first thing in the morning or at bedtime. Anay Schuler MD documented in this encounterMary[facility]01-20-2025 Telephone encounter Note * Telephone Encounter - [facility] Tiffanie Bryant - 07/18/2024 3:09 PM EST Prescription Refill Information The patient has been identified by name and date of : Yes Caregiver verified no other encounters exist for this prescription request: Yes Caregiver confirmed with patient/requestor that no other refills are due, in the near future, with this provider at this time: Yes The last office visit in the department: 05/30/24 Does the patient have a future office visit with this provider/department: Yes Requested Prescriptions Pending Prescriptions Disp Refills losartan (COZAAR) 50 mg tablet 180 tablet 3 Sig: Take 1 tablet by mouth two times a day. Tiffanie Jorgensen [facility] July 18, 2024 3:09 PM [facility]01-20-2025 Miscellaneous Notes* Telephone Encounter - [employer] Tiffanie Bryant - 07/18/2024 3:09 PM EST Prescription Refill Information The patient has been identified by name and date of : Yes Caregiver verified no other encounters exist for this prescription request: Yes Caregiver confirmed with patient/requestor that no other refills are due, in the near future, with this provider at this time: Yes The last office visit in the department: 05/30/24 Does the patient have a future office visit with this provider/department: Yes Requested Prescriptions Pending Prescriptions Disp Refills losartan (COZAAR) 50 mg tablet 180 tablet 3 Sig: Take 1 tablet by mouth two times a day. Tiffanie Bryant July 18, 2024 3:09 PM documented in this encounterMarymount Hospital12-17-2024 Evaluation note* Diagnosis Onset Date Resolution Status Admit Date Hypothyroidism (acquired) chronic June 14, 2024 12:52pm Osteoporosis chronic May 12:52pm Atrial fibrillation with RVR acute October 11, 2024 2:08pm Elevated troponin acute September 272024 2:08pm [facility] Work Phone: [phone]) 187-649412-13-2024 NoteHNO ID: [id number] Author: JEREMY YU MD Service: ? Author Type: Physician Type: Progress Notes Filed: 06/10/2024 16:02 Note Text: Patient presents with: Urinary Frequency: x last night HPI: Symptoms since yesterday Dysuria: Yes Frequency: Yes Hematuria: No Nausea: No Fever or chills: No Back pain: No Abdominal pain: bladder pressure Prior UTI: Yes Personal history of kidney stones: No Family history of kidney stones: daughter PAST MEDICAL HISTORY Diagnosis Date Acquired keratoderma Lichen sclerosis Anemia Anticoagulant long-term use indication: stroke prevention atrial fibrillation At risk for bleeding associated with anticoagulants HAS-BLED score = 2 (age, bleeding) At risk for stroke [id number] = 4 (HTN, age2, female gender) Benign [...] Pneumonia Stage 3b chronic kidney disease (CKD) ([facility]) Sweat, sweating, excessive Umbilical hernia 12/22/2012 Unspecified essential hypertension MEDICATIONS: Current Outpatient Medications Medication Sig atorvastatin (LIPITOR) 20 mg tablet Take 1 tablet by mouth every 48 hours. levothyroxine (LEVOXYL) 25 mcg tablet Take 1 tablet by mouth once daily. Take on empty stomach. For Thyroid omeprazole (PRILOSEC) 40 mg capsule Take 1 capsule by mouth daily before breakfast. 1/2 hr before meal. cyanocobalamin, vitamin B-12, (VITAMIN B12 ORAL) Take by mouth. denosumab (PROLIA SUBCUTANEOUS) Inject subcutaneously. vibegron (GEMTESA) 75 mg tablet Take 1 tablet by mouth once daily. hydrOXYzine HCl (ATARAX) 25 mg tablet Take 1 tablet by mouth every 4 hours as needed for itching/rash. furosemide (LASIX) 20 mg tablet Take 1 tablet by mouth every other day. ferrous sulfate 325 mg (65 mg iron) tablet Take 1 tablet by mouth once daily. hydrALAZINE (APRESOLINE) 10 mg tablet Take 1 tablet by mouth four times daily. losartan (COZAAR) 50 mg tablet Take 1 tablet by mouth two times a day. carvedilol (COREG) 12.5 mg tablet Take 12.5 mg by mouth two times a day with meals. potassium chloride (K-TAB) 10 mEq tablet Take [...] IF UNABLE, PLEASE REFER TO [facility] AT [facility]. DX: EDEMA latanoprost (XALATAN) 0.005 % ophthalmic solution 1 Drop daily at bedtime. TRAVATAN Z 0.004 % Drop daily at bedtime. Cholecalciferol, Vitamin D3, 2,000 unit ORAL Cap Take one(1) tablet two(2) times daily. No current facility-administered medications for this visit. ALLERGIES: ALLERGIES Allergen Reactions Amantadine Rash Capoten [Captopril] Rash Cephalexin Rash Erythromycin Rash Hctz [Thiazides] Other: See Comments leg cramps Ivp Dye [Iodine] Rash Norvasc [Amlodipine* Swelling VITALS: BP 134/72 Pulse 76 Temp 36.6 ?C (97.8 ?F) Resp 16 Wt 64 kg (141 lb 1.5 oz) SpO2 98% BMI 25.81 kg/m? PHYSICAL EXAM: GEN: NAD HEENT: EOMI, conjunctiva clear, HEART: regular rate and rhythm, no murmurs LUNGS: clear to auscultation, no wheezes or crackles, no increased WOB ABDOMEN: Soft, nondistended, no masses, no suprapubic tenderness BACK: No CVA tenderness Latest Ref Rng 08/18/2023 eGFR >=60 mL/min/1.73m? 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 ASSESSMENT/PLAN: 1. Urinary frequency - ICD9: 788.41, ICD10: R35.0 - UA positive for gurwinder esterase, hematuria, proteinuria, and nitrates - UA DIP, URINE (POC) - NITROFURANTOIN MONOHYDRATE AND MACROCRYSTAL 100 MG ORAL CAP. - URINE CULTURE - bactrim can be used with caution if needed (taking ARB and KCl). Jeremy Yu, [facility]12-13-2024 History of Present illness Narrative* Jeremy Yu MD - 06/10/2024 3:42 PM EST Patient presents with: Urinary Frequency: x last night HPI: Symptoms since yesterday Dysuria: Yes Frequency: Yes Hematuria: No Nausea: No Fever or chills: No Back pain: No Abdominal pain: bladder pressure Prior UTI: Yes Personal history of kidney stones: No Family history of kidney stones: daughter PAST MEDICAL HISTORY Diagnosis Date Acquired keratoderma Lichen sclerosis Anemia Anticoagulant long-term use indication: stroke prevention atrial fibrillation At risk for bleeding associated with anticoagulants HAS-BLED score = 2 (age, bleeding) At risk for stroke [id number] = 4 (HTN, age2, female gender) Benign [...] excessive Umbilical hernia 12/22/2012 Unspecified essential hypertension MEDICATIONS: Current Outpatient Medications Medication Sig atorvastatin (LIPITOR) 20 mg tablet Take 1 tablet by mouth every 48 hours. levothyroxine (LEVOXYL) 25 mcg tablet Take 1 tablet by mouth once daily. Take on empty stomach. ForThyroid omeprazole (PRILOSEC) 40 mg capsule Take 1 capsule by mouth daily before breakfast. 1/2 hr before meal. cyanocobalamin, vitamin B-12, (VITAMIN B12 ORAL) Take by mouth. denosumab (PROLIA SUBCUTANEOUS) Inject subcutaneously. vibegron (GEMTESA) 75 mg tablet Take 1 tablet by mouth once daily. hydrOXYzine HCl (ATARAX) 25 mg tablet Take 1 tablet by mouth every 4 hours as needed for itching/rash. furosemide (LASIX) 20 mg tablet Take 1 tablet by mouth every other day. ferrous sulfate 325 mg (65 mg iron) tablet Take 1 tablet by mouth once daily. hydrALAZINE (APRESOLINE) 10 mg tablet Take 1 tablet by mouth four times daily. losartan (COZAAR) 50 mg tablet Take 1 tablet by mouth two times a day. carvedilol (COREG) 12.5 mg tablet Take 12.5 mg by mouth two times a day with meals. potassium chloride (K-TAB) 10 mEq tablet Take [...] IF UNABLE, PLEASE REFER TO [facility] AT [facility]. DX: EDEMA latanoprost (XALATAN) 0.005 % ophthalmic solution 1 Drop daily at bedtime. TRAVATAN Z 0.004 % Drop daily at bedtime. Cholecalciferol, Vitamin D3, 2,000 unit ORAL Cap Take one(1) tablet two(2) times daily. No current facility-administered medications for this visit. ALLERGIES: ALLERGIES Allergen Reactions Amantadine Rash Capoten [Captopril] Rash Cephalexin Rash Erythromycin Rash Hctz [Thiazides] Other: See Comments leg cramps Ivp Dye [Iodine] Rash Norvasc [Amlodipine* Swelling VITALS: BP 134/72 Pulse 76 Temp 36.6 C (97.8 F) Resp 16 Wt 64 kg (141 lb 1.5 oz) SpO2 98% BMI 25.81 kg/m PHYSICAL EXAM: GEN: NAD HEENT: EOMI, conjunctiva clear, HEART: regular rate and rhythm, no murmurs LUNGS: clear to auscultation, no wheezes or crackles, no increased WOB ABDOMEN: Soft, nondistended, no masses, no suprapubic tenderness BACK: No CVA tenderness Latest Ref Rng 08/18/2023 eGFR >=60 mL/min/1.73m 35 (L) Reports last labs with court commissioner were very good. ASSESSMENT/PLAN: 1. Urinary frequency - ICD9: 788.41, ICD10: R35.0 - UA positive for gurwinder esterase, hematuria, proteinuria, and nitrates - UA DIP, URINE (POC) - NITROFURANTOIN MONOHYDRATE & MACROCRYSTAL 100 MG ORAL CAP. - URINE CULTURE - bactrim can be used with caution if needed (taking ARB and KCl). Jeremy Yu MD [facility] Telephone encounter Note * Telephone Encounter - Jazmine HeadSHERIN - 06/10/2024 1:14 PM EST Called and updated patient to come in to give urine sample to lab. Voiced understanding. Jazmine HeadSHERIN June 10, 2024 1:15 PM [facility]12-13-2024 Miscellaneous Notes* Telephone Encounter - Jazmine HeadSHERIN - 06/10/2024 1:14 PM EST Called and updated patient to come in to give urine sample to lab. Voiced understanding. Jazmine SonidoSHERIN June 10, 2024 1:15 PM * Telephone Encounter - Anay Schuler MD - 06/10/2024 12:50 PM EST Please call patient mariia to tell her to come in to give the urine Anay Iniguez MD * Telephone Encounter - Felicity Sprague LPN - 06/10/2024 10:54 AM EST Pt calling to get a urine lab order. Pt feels sh has a UTI. I instructed pt you need to be seen. She reports she has done this for me in the past. Pt's symptoms x 1 day, pressure and frequency. Denies burning. Please advise pt is you are willing to send in a lab order or does she need to come in. Felicity Sprague LPN documented in this encounterMary[facility]12-13-2024 Telephone encounter Note * Telephone Encounter - Anay Schuler MD - 06/10/2024 12:50 PM EST Please call patient mariia to tell her to come in to give the urine Anay Iniguez MD [facility]12-13-2024 Telephone encounter Note* Telephone Encounter - Felicity Sprague LPN - 06/10/2024 10:54 AM EST Pt calling to get a urine lab order. Pt feels sh has a UTI. I instructed pt you need to be seen. She reports she has done this for me in the past. Pt's symptoms x 1 day, pressure and frequency. Denies burning. Please advise pt is you are willing to send in a lab order or does she need to come in. Felicity Sprague LPN [facility]12-02-2024 NoteHNO ID: [id number] Author: ANAY SCHULER MD Service: ? Author Type: Physician Type: Progress Notes Filed: 05/30/2024 17:59 Note Text: Reason for Visit Patient presents with: Follow Up Reinier Elizabeth is a 86 year old female who presents here today for Above Complaints.. Health Maintenance ADVANCE DIRECTIVE DISCUSSION HPI Here with her daughter zaina, today and notes that she is feeling pretty well and has no major concerns. Reinier is a 86-year-old woman with a past medical history of hypertension, hyperlipidemia, pulmonary hypertension, atrial fibrillation likely from the pulmonary hypertension sequelae, CKD and anemia from recurrent GI bleeds supposedly from from anticoagulation. 01/19: In the past year the patient was started on Prolia injections for osteoporosis. Was treated for anemia, there was some concern with hypertension and heart disease. In the past year we have had [...] is a little better. She is on cozaar 50, coreg 12.5, lasix, 20 mgs daily, 3 days a week in addition to the hydralazine. Lasix was decreased because of a worsening GFR more swelling now that the lasix has been cut back, She does use compression stockings She is exercising using the bike at home. Taking the potassium We have not had her labs done in the past 2 to 3 months so we would like to recheck her thyroid along with her blood counts especially to check what her CBC is like. She has an upcoming EGD by Friend the cloth baler. Her brother calls her calls her every day, visits every Thursday. Has a decent flower bed. 05/30/2024: To increase coreg to 2 in the morning and one at night time as bp is not well controlled. She did pursue to get the hearing aids. No problem-specific Assessment AND Plan notes found for this encounter. PAST MEDICAL HISTORY Diagnosis Date Acquired keratoderma Lichen sclerosis Anemia Anticoagulant long-term use indication: stroke prevention atrial fibrillation At risk for bleeding associated with anticoagulants HAS-BLED score = 2 (age, bleeding) At risk for stroke [id number] = 4 (HTN, age2, female gender) Benign [...] - May. right eye left eye - [facility] . Dr Gao REPAIR FIRST ABDOMINAL WALL HERNIA 12/14/2012 2cm defect - Parietex Composite ventral patch 6cm STRESS TEST 04/14/2017 PAWAN 02/04/2018 FAMILY HISTORY Problem Relation Age of Onset Heart Mother Hypertension Mother Ischemic Heart Disease Mother Hypertension Father Ischemic Heart Disease Father Heart Sister By-pass, Triple Ischemic Heart Disease Sister Heart Brother Stent Ischemic Heart Disease Brother Glaucoma Brother other (Renal Stones) Daughter Heart Maternal Aunt Social History Tobacco Use Smoking status: Former Current packs/day: 0.00 Types: Cigarettes Start date: 07/06/1971 Quit date: 07/06/1976 Years since quittin.9 Smokeless tobacco: Never Tobacco comments: Quit 4-5 cig per day Vaping Use Vaping status: Never Used Substance Use Topics Alcohol use: No Drug use: No Past medical history, appointments, medications, allergies reviewed. Pertinent Lab/Diagnostic Studies are reviewed and discussed today Current Outpatient Me (more content not included)...[facility] 05-30-2024 History of Present illness Narrative* Anay Schuler MD - 05/30/2024 2:04 PM EST Reason for Visit Patient presents with: Follow Up Reinier Elizabeth is a 86 year old female who presents here today for Above Complaints.. Health Maintenance ADVANCE DIRECTIVE DISCUSSION HPI Here with her daughter zaina, today and notes that she is feeling pretty well and has no major concerns. Reinier is a 86-year-old woman with a past medical history of hypertension, hyperlipidemia, pulmonaryhypertension, atrial fibrillation likely from the pulmonary hypertension sequelae, CKD and anemia from recurrent GI bleeds supposedly from from anticoagulation. 01/19: In the past year the patient was started on Prolia injections for osteoporosis. Was treated for anemia, there was some concern with hypertension and heart disease. In the past year we have had a hard time regulating her blood pressure after all hospitalizations from A-fib with RVR, cardioversion and addition of different medications along with anemia and issueswith hypovolemia her Bp has been up and down a lot . Currently her systolic is in the high 140 to 150 range. She just saw Dr Sewell who put her on the hydralazine 3 times a day and bp is a little better. She is on cozaar 50, coreg 12.5, lasix, 20 mgs daily, 3 days a week in addition to the hydralazine. Lasix was decreased because of a worsening GFR more swelling now that the lasix has been cut back,She does use compression stockings She is exercising using the bike at home. Taking the potassium We have not had her labs done in the past 2 to 3 months so we would like to recheck her thyroid along with her blood counts especially to check what her CBC is like. She has an upcoming EGD by Dr. Collins the cloth baler. Her brother calls her calls her every day, visits every Thursday. Has a decent flower bed. 05/30/2024: To increase coreg to 2 in the morning and one at night time as bp is not well controlled. She did pursue to get the hearing aids. No problem-specific Assessment & Plan notes found for this encounter. PAST MEDICAL HISTORY Diagnosis Date Acquired keratoderma Lichen sclerosis Anemia Anticoagulant long-term use indication: stroke prevention atrial fibrillation At risk for bleeding associated with anticoagulants HAS-BLED score = 2 (age, bleeding) At risk for stroke [id number] = 4 (HTN, age2, female gender) Benign [...] May. right eye Jun. left eye - [facility] . Dr Gao REPAIR FIRST ABDOMINAL WALL HERNIA 12/14/2012 2cm defect - Parietex Composite ventral patch 6cm STRESS TEST 04/14/2017 PAWAN 02/04/2018 FAMILY HISTORY Problem Relation Age of Onset Heart Mother Hypertension Mother Ischemic Heart Disease Mother Hypertension Father Ischemic Heart Disease Father Heart Sister By-pass, Triple Ischemic Heart Disease Sister Heart Brother Stent Ischemic Heart Disease Brother Glaucoma Brother other (Renal Stones) Daughter Heart Maternal Aunt Social History Tobacco Use Smoking status: Former Current packs/day: 0.00 Types: Cigarettes Start date: 07/06/1971 Quit date: 07/06/1976 Years since quittin.9 Smokeless tobacco: Never Tobacco comments: Quit 4-5 cig per day Vaping Use Vaping status: Never Used Substance Use Topics Alcohol use: No Drug use: No Past medical history, appointments, medications, allergies reviewed. Pertinent Lab/Diagnostic Studies are reviewed and discussed today Current Outpatient Medications: atorvastatin (LIPITOR) 20 mg tablet levothyroxine (LEVOXYL) 25 mcg tablet omeprazole (PRILOSEC) 40 mg capsule cyanocobalamin, vitamin B-12, (VITAMIN B12 ORAL) denosumab (PROLIA SUBCUTANEOUS) vibegron (GEMTESA) 75 mg tablet furosemide (LASIX) 20 mg tablet ferrous sulfate 325 mg (65 mg iron) tablet hydrALAZINE (APRESOLINE) 10 mg tablet losartan (COZAAR) 50 mg tablet carvedilol (COREG) 12.5 mg tablet potassium chloride (K-TAB) 10 mEq tablet [employer] magdalena XARELTO 15 mg tablet brimonidine (ALPHAGAN P) 0.15 % ophthalmic solution timolol maleate (TIMOPTIC) 0.5 % ophthalmic solution latanoprost (XALATAN) 0.005 % ophthalmic solution TRAVATAN Z 0.004 % Drop Cholecalciferol, Vitamin D3, 2,000 unit ORAL Cap hydrOXYzine HCl (ATARAX) 25 mg tablet >Zippered Compression Knee High 30-40 mm custom Review of Systems CONSTITUTIONAL: No fevers, chills [...] or numbness of concern. Physical Exam BP 140/60 Pulse 62 Resp 14 Ht 157.5 cm (5' 2) Wt 63 kg (138 lb 14.2 oz) BMI 25.40 kg/m General appearance: Well appearing, alert, in [...] or cyanosis. Good capillary refill. ASSESSMENT/PLAN: 1. Mixed incontinence - ICD9: 788.33, ICD10: N39.46 (primary diagnosis) She denies having cognitive changes with Rene Janis - VIBEGRON 75 MG TABLET 2. Anemia, unspecified type - ICD9: 285.9, ICD10: D64.9 Will replace if she has iron deficiency and monitor for anemia - COMPLETE BLOOD COUNT AND DIFFERENTIAL 3. Essential hypertension - ICD9: 401.9, ICD10: I10 Bp is not well controlled. She is going to increased the coreg if tolerated to take 25 mgs in the morning and 12. 5 mgs at night time. 4. Need for vaccination - ICD9: V05.9, ICD10: Z23 - [employer] [employer] 5. Pulmonary hypertension (HCC) - ICD9: 416.8, ICD10: I27.20 6. Permanent atrial fibrillation (HCC) - ICD9: 427.31, ICD10: I48.21 On xarelto she is doing well 7. Bilateral hearing loss, unspecified hearing loss type - ICD9: 389.9, ICD10: H91.93 She has got her hearing aids and is infact doing better and is glad she has then Anay Schuler MD [facility]11-[facility] Telephone encounter Note * Telephone Encounter - Olamide Hirsch RN - 05/20/2024 4:03 PM EST Called pt back and explained that our office does not prescribe her Carvedilol. Pt does have a commonwealth attorney at [facility]. Ning Spencer was prescriber. Pt verbalizes understanding. [facility]11-22-[facility] Miscellaneous Notes* Telephone Encounter - Olamide Hirsch RN - 05/20/2024 4:03 PM EST Called pt back and explained that our office does not prescribe her Carvedilol. Pt does have a commonwealth attorney at [facility]. Ning Spencer was prescriber. Pt verbalizes understanding. * Telephone Encounter - Commerce Tiffanie Bryant - 05/20/2024 2:40 PM EST Prescription Refill Information The patient has been identified by name and date of : Yes Caregiver verified no other encounters exist for this prescription request: Yes Caregiver confirmed with patient/requestor that no other refills are due, in the near future, with this provider at this time: Yes The last office visit in the department: 01/11/24 Does the patient have a future office visit with this provider/department: Yes Requested Prescriptions Pending Prescriptions Disp Refills carvedilol (COREG) 12.5 mg tablet 180 tablet 1 Sig: Take 1 tablet by mouth two times a day with meals. Tiffanie Bryant May 20, 2024 2:41 PM documented in [facility] encounter[facility]11-[facility] Telephone encounter Note * Telephone Encounter - [employer] Tiffanie Bryant - 05/20/2024 2:40 PM EST Prescription Refill Information The patient has been identified by name and date of : Yes Caregiver verified no other encounters exist for this prescription request: Yes Caregiver confirmed with patient/requestor that no other refills are due, in the near future, with this provider at this time: Yes The last office visit in the department: 01/11/24 Does the patient have a future office visit with this provider/department: Yes Requested Prescriptions Pending Prescriptions Disp Refills carvedilol (COREG) 12.5 mg tablet 180 tablet 1 Sig: Take 1 tablet by mouth two times a day with meals. Tiffanie Bryant May 20, 2024 2:41 PM [facility]10-16-[facility]24 Telephone encounter Note* Telephone Encounter - [facility] Margie Bryant - 04/13/2024 9:31 AM EDT Prescription Refill Information The patient has been identified by name and date of : Yes Caregiver verified no other encounters exist for this prescription request: Yes Caregiver confirmed with patient/requestor that no other refills are due, in the near future, with this provider at this time: Yes The last office visit in the department: 01-11-24 Does the patient have a future office visit with this provider/department: Yes Requested Prescriptions Pending Prescriptions Disp Refills atorvastatin (LIPITOR) 20 mg tablet 45 tablet 3 Sig: Take 1 tablet by mouth every 48 hours. Margie Morgan [facility] April 13, 2024 9:32 AM [facility]10-16-2024 Miscellaneous Notes* Telephone Encounter - Margie Garcia - 04/13/2024 9:31 AM EDT Prescription Refill Information The patient has been identified by name and date of : Yes Caregiver verified no other encounters exist for this prescription request: Yes Caregiver confirmed with patient/requestor that no other refills are due, in the near future, with this provider at this time: Yes The last office visit in the department: 01-11-24 Does the patient have a future office visit with this provider/department: Yes Requested Prescriptions Pending Prescriptions Disp Refills atorvastatin (LIPITOR) 20 mg tablet 45 tablet 3 Sig: Take 1 tablet by mouth every 48 hours. Margie Bryant April 13, 2024 9:32 AM documented in this encounterMary[facility]09-25-2024 Telephone encounter Note * Telephone Encounter - Paulina Van - 03/23/2024 9:58 AM EDT Prescription Refill Information The patient has been identified by name and date of : Yes Caregiver verified no other encounters exist for this prescription request: Yes Caregiver confirmed with patient/requestor that no other refills are due, in the near future, with this provider at this time: Yes The last office visit in the department: 01/11/2024 Does the patient have a future office visit with this provider/department: Yes 05/30/24 Requested Prescriptions Pending Prescriptions Disp Refills levothyroxine (LEVOXYL) 25 mcg tablet 90 tablet 3 Sig: Take 1 tablet by mouth once daily. Take on empty stomach. For Thyroid omeprazole (PRILOSEC) 40 mg capsule 90 capsule 3 Sig: Take 1 capsule by mouth daily before breakfast. 1/2 hr before meal. Paulina Nelson March 23, 2024 10:00 AM [facility]09-25-[facility]24 Miscellaneous Notes* Telephone Encounter - Paulina Van - 03/23/2024 9:58 AM EDT Prescription Refill Information The patient has been identified by name and date of : Yes Caregiver verified no other encounters exist for this prescription request: Yes Caregiver confirmed with patient/requestor that no other refills are due, in the near future, with this provider at this time: Yes The last office visit in the department: 01/11/2024 Does the patient have a future office visit with this provider/department: Yes 05/30/24 Requested Prescriptions Pending Prescriptions Disp Refills levothyroxine (LEVOXYL) 25 mcg tablet 90 tablet 3 Sig: Take 1 tablet by mouth once daily. Take on empty stomach. For Thyroid omeprazole (PRILOSEC) 40 mg capsule 90 capsule 3 Sig: Take 1 capsule by mouth daily before breakfast. 1/2 hr before meal. Paulina Nelson March 23, 2024 10:00 AM documented in this encounterMary[facility]07-17-2024 Telephone encounter Note * Telephone Encounter - Margarette Perry LPN - 01/13/2024 10:39 AM EDT Pt notified of results & instructions, pt voiced understanding. Margarette Perry LPN [facility]07-17-2024 Miscellaneous Notes* Telephone Encounter - Margarette Perry LPN - 01/13/2024 10:39 AM EDT Pt notified of results & instructions, pt voiced understanding. Margarette Perry LPN * Telephone Encounter - Megha Rivera MA - 01/13/2024 10:34 AM EDT LM for patient to contact office. Megha Rivera MA * Telephone Encounter - Megha Rivera MA - 01/13/2024 8:23 AM EDT ----- Message from Anay Schuler MD sent at 01/12/2024 5:51 PM EDT ----- Reinier, your hemoglobin is still on the lower side. But it is not at the very low level neither is it concerning. We will continue to monitor this. Watch out for any stools that are black. documented in this encounterMary[facility]07-17-2024 Telephone encounter Note * Telephone Encounter - Megha Rivera MA - 01/13/2024 10:34 AM EDT LM for patient to contact office. Megha Rivera MA [facility]07-17-[facility]24 Telephone encounter Note* Telephone Encounter - Megha Rivera MA - 01/13/2024 8:23 AM EDT ----- Message from Anay Schuler MD sent at 01/12/2024 5:51 PM EDT ----- Reinier, your hemoglobin is still on the lower side. But it is not at the very low level neither is it concerning. We will continue to monitor this. Watch out for any stools that are black. [facility]-15-[facility] History of Present illness Narrative* Anay Schuler MD - 01/11/2024 2:20 PM EDT Reason for Visit Patient presents with: Follow Up Reinier Elizabeth is a 86 year old female who presents here today for Above Complaints.. Health Maintenance ADVANCE DIRECTIVE DISCUSSION HPI Here with her daughter zaina, today and notes that she is feeling pretty well and has no major concerns. Reinier is a 86-year-old woman with a past medical history of hypertension, hyperlipidemia, pulmonaryhypertension, atrial fibrillation likely from the pulmonary hypertension sequelae, CKD and anemia from recurrent GI bleeds supposedly from from anticoagulation. 01/19: In the past year the patient was started on Prolia injections for osteoporosis. Was treated for anemia, there was some concern with hypertension and heart disease. In the past year we have had a hard time regulating her blood pressure after all hospitalizations from A-fib with RVR, cardioversion and addition of different medications along with anemia and issueswith hypovolemia her Bp has been up and down a lot . Currently her systolic is in the high 140 to 150 range. She just saw Dr Sewell who put her on the hydralazine 3 times a day and bp is a little better. She is on cozaar 50, coreg 12.5, lasix, 20 mgs daily, 3 days a week in addition to the hydralazine. Lasix was decreased because of a worsening GFR more swelling now that the lasix has been cut back,She does use compression stockings She is exercising using the bike at home. Taking the potassium We have not had her labs done in the past 2 to 3 months so we would like to recheck her thyroid along with her blood counts especially to check what her CBC is like. She has an upcoming EGD by Dr. Collins the cloth baler. Her brother calls her calls her every day, visits every Thursday. Has a [employer] flower bed. No problem-specific Assessment & Plan notes found for this encounter. PAST MEDICAL HISTORY Diagnosis Date Acquired keratoderma Lichen sclerosis Anemia Anticoagulant long-term use indication: stroke prevention atrial fibrillation At risk for bleeding associated with anticoagulants HAS-BLED score = 2 (age, bleeding) At risk for stroke [id number] = 4 (HTN, age2, female gender) Benign [...] SURGICAL HISTORY OF 05/2012, 2019 Glaucoma - Dec. right eye left eye - [facility] . Dr Gao REPAIR FIRST ABDOMINAL WALL HERNIA 12/14/2012 2cm defect - Parietex Composite ventral patch 6cm STRESS TEST 04/14/2017 PAWAN 02/04/2018 FAMILY HISTORY Problem Relation Age of Onset [...] reviewed and discussed today Current Outpatient Medications: cyanocobalamin, vitamin B-12, (VITAMIN B12 ORAL) denosumab (PROLIA SUBCUTANEOUS) furosemide (LASIX) 20 mg tablet ferrous sulfate 325 mg (65 mg iron) tablet hydrALAZINE (APRESOLINE) 10 mg tablet losartan (COZAAR) 50 mg tablet carvedilol (COREG) 12.5 mg tablet atorvastatin (LIPITOR) 20 mg tablet levothyroxine (LEVOXYL) 25 mcg tablet omeprazole (PRILOSEC) 40 mg capsule potassium chloride (K-TAB) 10 mEq tablet Spirometers and Accessories magdalena XARELTO 15 mg tablet brimonidine (ALPHAGAN P) 0.15 % ophthalmic solution timolol maleate (TIMOPTIC) 0.5 % ophthalmic solution latanoprost (XALATAN) 0.005 % ophthalmic solution TRAVATAN Z 0.004 % Drop Cholecalciferol, Vitamin D3, 2,000 unit ORAL Cap hydrOXYzine HCl (ATARAX) 25 mg tablet >Zippered Compression Knee High 30-40 mm custom Review of Systems CONSTITUTIONAL: No fevers, chills [...] or numbness of concern. Physical Exam BP 128/72 Pulse 61 Resp 16 Ht 157.5 cm (5' 2) Wt 64 kg (141 lb) BMI 25.79 kg/m General appearance: Well appearing, alert, in [...] - ICD9: 285.9, ICD10: D64.9 (primary diagnosis) - it has been stable 2. Nausea - ICD9: 787.02, ICD10: R11.0 - POTASSIUM CHLORIDE ER 10 MEQ CAPSULE,EXTENDED RELEASE 3. Essential hypertension - ICD9: 401.9, ICD10: I10 - good control - Recommended regular aerobic exercise. - Recommend home blood pressure monitoring, to bring results in on next visit - Goal of BP <130/80 4. Mixed hyperlipidemia - ICD9: 272.2, ICD10: E78.2 - good control - Continue current medication. 5. Pulmonary hypertension (HCC) - ICD9: 416.8, ICD10: I27.20 I think this is the cause of her A-fib. 6. Permanent atrial fibrillation (HCC) - ICD9: 427.31, ICD10: I48.21 On xarelto, and coreg, no complaints. ASSESSMENT/PLAN: 1. Mixed incontinence - ICD9: 788.33, ICD10: N39.46 (primary diagnosis) She denies having cognitive changes with Rene Janis - VIBEGRON 75 MG TABLET 2. Anemia, unspecified type - ICD9: 285.9, ICD10: D64.9 Will replace if she has iron deficiency and monitor for anemia - COMPLETE BLOOD COUNT AND DIFFERENTIAL 3. Essential hypertension - ICD9: 401.9, ICD10: I10 4. Need for vaccination - ICD9: V05.9, ICD10: Z23 - [employer] [facility] INSTRUCTIONS 5. Pulmonary hypertension (HCC) - ICD9: 416.8, ICD10: I27.20 6. Permanent atrial fibrillation (HCC) - ICD9: 427.31, ICD10: I48.21 7. Bilateral hearing loss, unspecified hearing loss type - ICD9: 389.9, ICD10: H91.93 - HEARING TEST/AUDIOGRAM Anay Schuler MD documented in this encounterMary[facility]07-[facility]24 NoteHNO ID: [id number] Author: ANAY SCHULER MD Service: ? Author Type: Physician Type: Progress Notes Filed: 01/11/2024 18:08 Note Text: Reason for Visit Patient presents with: Follow Up Reinier Elizabeth is a 86 year old female who presents here today for Above Complaints.. Health Maintenance ADVANCE DIRECTIVE DISCUSSION HPI Here with her daughter zaina, today and notes that she is feeling pretty well and has no major concerns. Reinier is a 86-year-old woman with a past medical history of hypertension, hyperlipidemia, pulmonary hypertension, atrial fibrillation likely from the pulmonary hypertension sequelae, CKD and anemia from recurrent GI bleeds supposedly from from anticoagulation. 01/19: In the past year the patient was started on Prolia injections for osteoporosis. Was treated for anemia, there was some concern with hypertension and heart disease. In the past year we have had [...] is a little better. She is on cozaar 50, coreg 12.5, lasix, 20 mgs daily, 3 days a week in addition to the hydralazine. Lasix was decreased because of a worsening GFR more swelling now that the lasix has been cut back, She does use compression stockings She is exercising using the bike at home. Taking the potassium We have not had her labs done in the past 2 to 3 months so we would like to recheck her thyroid along with her blood counts especially to check what her CBC is like. She has an upcoming EGD by Dr. Collins the cloth baler. Her brother calls her calls her every day, visits every Thursday. Has a decent flower bed. No problem-specific Assessment AND Plan notes found for this encounter. PAST MEDICAL HISTORY Diagnosis Date Acquired keratoderma Lichen sclerosis Anemia Anticoagulant long-term use indication: stroke prevention atrial fibrillation At risk for bleeding associated with anticoagulants HAS-BLED score = 2 (age, bleeding) At risk for stroke [id number] = 4 (HTN, age2, female gender) Benign [...] Glaucoma - right eye left eye - [facility] . Dr Gao REPAIR FIRST ABDOMINAL WALL HERNIA 12/14/2012 2cm defect - Parietex Composite ventral patch 6cm STRESS TEST 04/14/2017 PAWAN 02/04/2018 FAMILY HISTORY Problem Relation Age of Onset [...] reviewed and discussed today Current Outpatient Medications: cyanocobalamin, vitamin B-12, (VITAMIN B12 ORAL) denosumab (PROLIA SUBCUTANEOUS) furosemide (LASIX) 20 mg tablet ferrous sulfate 325 mg (65 mg iron) tablet hydrALAZINE ( (more content not included)...[facility]04-09-2024 Miscellaneous Notes* Telephone Encounter - Briana Yan LPN - 10/06/2023 2:18 PM EDT Pt calls to request Vit D25 lab result be faxed to Dr. Basilio @ [phone]. Result faxed as requested. Briana Yan LPN documented in this encounterMarymount Hospital04-01-2024 Instructions* Patient Instructions* Megha Mahoney PA-C - 09/28/2023 2:37 PM EDT Start with low potency topical steroid (Triamcinolone). If still having a lot of itching, take hydroxyzine pill prior to bed Lay off the potassium for a couple days while using the hydroxyzine [facility] PATIENT INFO CONTACT DERMATITIS OVERVIEW Dermatitis is defined as an inflammation of the skin. Contact dermatitis refers to dermatitis that is caused by contact between the skin and a substance. The substance can be an allergen (a substancethat provokes an allergic reaction) or an irritant (a substance that damages the skin). Irritants are responsible for about 80 percent of cases of contact dermatitis. In most cases, self-care measures and drug therapy can control the symptoms and prevent complications of contact dermatitis. IRRITANT CONTACT DERMATITIS Irritant contact dermatitis occurs when the skin comes in direct contact with a substance that physically, mechanically, or chemically irritates the skin, causing the normal skin barrier to be disrupted. Cause -- The most common causes of irritant dermatitis are products used on a daily basis, including soap, cleansers, and rubbing alcohol. People with other skin conditions, dry skin, and light-colored or fair skin are at greatest risk, although anyone can develop irritant dermatitis. Symptoms -- Mild irritants cause redness, dryness, fissures (small cracks), and itching. Strong irritants may cause swelling, oozing, tenderness, or blisters. The hands are commonly affected, often between the fingers. Irritant dermatitis can also affect the face, especially the thin skin of the eyelids. Diagnosis -- The diagnosis of irritant contact dermatitis is usually based upon a person's history and physical examination. In some cases, a patch test (applying a small amount of a substance to theskin) may be recommended to determine if the dermatitis is allergic or irritant-type. Patch testingshould be done by a roving court reporter or dresser tender who is trained in this procedure. Treatment -- The goal of treatment of irritant contact dermatitis is to restore the normal skin barrier and protect the skin from future injury. Reducing exposure to known irritants is essential. In some cases, simply reducing the use of soap and using an emollient cream or ointment completely alleviates symptoms. Wearing gloves when working with irritants may help as well. In more severe cases, topical corticosteroids (steroids) may be recommended. Steroid creams and ointments are available in a variety of strengths (potencies); the least potent are available in the [place] without a prescription (eg, hydrocortisone 1 percent cream). More potent formulations req uire a prescription. Steroid treatments for contact dermatitis are most effective when applied and covered with a barrier, such as plastic wrap, a dressing (eg, Telfa), cotton gloves, or petroleum jelly. Oral steroids (eg, prednisone) may be used briefly to treat severe dermatitis, but are not recommended for long-termtreatment of irritant contact dermatitis. ALLERGIC CONTACT DERMATITIS Allergic contact dermatitis occurs when the skin comes in direct contact with an allergen. This activates the body's immune system, which triggers inflammation. Allergic contact dermatitis can occur after being exposed to a new product or after using a product for months or years. Common allergens -- Poison heather, poison oak, and poison sumac contain an oil called urushiol, which is the most common cause of allergic contact dermatitis. Ginkgo fruit and the skin of mangos also contain urushiol and can cause allergic contact dermatitis. Other common allergens include nickel in jewelry, perfumes and cosmetics, components of rubber, nail tamazight, and chemicals in shoes (both leather and synthetic). Allergic contact dermatitis can also be triggered by certain medications, including hydrocortisone cream, antibiotic creams (eg, Neosporin , Bacitracin ), benzocaine, and thimerosal. Laundry detergents are an uncommon cause of allergic contact dermatitis. Symptoms -- Symptoms include intense itching and a red raised rash. The rash is usually limited to areas that were in direct contact with the allergen, but a rash can appear in other areas of the body, if the allergen was transferred to those areas on a person's hands. Washing the allergen away with soap and water can usually prevent this spread. The rash typically appears within 12 to 48 hours of exposure to the allergen, although in some cases it may not appear for up to two weeks. Less commonly, the rash persists for months or years, whichmakes it difficult to identify the cause of the reaction. Diagnosis -- The diagnosis of allergic contact dermatitis is based upon a person's history and physical examination. If symptoms improve after the allergen is eliminated, this supports the diagnosis.Patch testing may be recommended in some cases and is usually performed by a roving court reporter or allerg ist. Treatment -- Allergic contact dermatitis usually resolves within two to four weeks after the allergen is eliminated, although it can take more time in some cases. Several measures can minimize symptoms during this time and help to control symptoms in people who have chronic allergic contact dermatitis. Whenever possible, identify and stop all exposure to the allergen. Oatmeal baths or soothing lotions such as calamine lotion can provide relief in mild cases. Topical antihistamines (eg, Benadryl cream) may be effective in some people. Topical corticosteroids (steroids) may be recommended for people with mild to moderate symptoms. Steroid creams and ointments are available in a variety of strengths (potencies); the least potent areavailable in the [place] without a prescription (eg, hydrocortisone 1 percent cream). More potent formulations require a prescription. For people with more bothersome symptoms, wet or damp dressings are recommended, especially when the affected area is oozing fluid and crusting. Such dressings are soothing and relieve itching, reduce redness, gently remove crusts, and prevent additional injury from scratching. A damp cotton garment (the garment is soaked with water and then wrung out) is worn over the affected area and covered with a dry garment. As an example, for an adult with allergic contact dermatitisof the legs, wet long underwear can be covered with larger dry long underwear. Adults may prefer toapply wet dressings at night. When used during the day, wet dressings should be changed every eight hours. Infants and toddlers with extensive skin involvement can wear wet pajamas covered by a dry pair of pajamas or a sleep sack. In people with severe dermatitis, a short course of oral steroids (eg, prednisone) may be recommended to get symptoms under control. LATEX DERMATITIS Latex is a fluid produced by rubber trees that is processed into a variety of products, including gloves, balloons, and condoms. In some individuals, exposure to these products and others (such as rubber bands, erasers, feeding nipples, pacifiers) can cause a contact dermatitis that is either an irritant or allergic reaction. Less commonly, a person can develop a potentially life-threatening allergic reaction to latex. Irritant dermatitis -- Irritant dermatitis usually occurs on the hands of people who wear latex or other rubber gloves; the latex acts as an irritant and the gloves trap moisture against the skin. The skin dries out when the gloves are removed, leading to the dermatitis. The symptoms of irritant rubber or latex dermatitis include redness and itching on the skin. There may also be dryness and cracking. Symptoms usually occur within 12 to 36 hours of touching a latex product. Treatment involves avoiding use of any latex-containing products. Latex allergy -- Latex can trigger allergic contact dermatitis. The skin reaction caused by a latexallergy does not differ significantly from that of irritant latex dermatitis. Other manifestations of latex allergy include urticaria (hives) immediately after contact with latex at the site of contact and a severe allergic reaction, which causes swelling, sneezing, and wheezing. Rarely, anaphylaxis can occur, which causes life-threatening difficulty with breathing. Diagnosis -- In most cases, the diagnosis of latex allergy is based upon a person's history of exposure. People with a severe latex allergy may immediately develop hives, nasal symptoms, swelling, or wheezing after latex exposure. These individuals may need to see a roving court reporter or dresser tender for specialized skin patch tests and blood testing to verify the latex allergy. Treatment -- The primary treatment for latex allergy is to avoid all latex- containing products. Non-latex examination gloves are widely available, and use of glove liners may also be an effective approach. Natural membrane (sometimes called sheep skin) condoms may be used in place of latex condoms, and are effective for preventing . However, natural membrane condoms do not protect against sexually transmitted diseases such as HIV, gonorrhea, and chlamydia. People with a serious latex allergy should wear a bracelet, necklace, or similar alert tag at all times. If a reaction occurs and the person is too ill to explain their condition, this will help responders provide the proper care as quickly as possible. This measure is especially important in children. The alert tag should include a list of known allergies, as well as the name and phone number ofan emergency contact. People with a latex allergy should inform their doctors, dentists, and other healthcare providers about their allergy. Some patients are advised to carry an anaphylaxis kit (containing epinephrine that can be injected under the skin) as a precautionary measure. documented in this encounterMary[facility]04-01-2024 History of Present illness Narrative* Megha Mahoney PA-C - 09/28/2023 2:26 PM EDT Images from the original note were not included. CC: Patient presents with: Same Day Appointment: red itchy rash after using Cottonelle wipes since Thursday HPI Reinier Elizabeth is a 87 year old female who presents today with her daughter for erythema and itching of perineal region since Thursday, after she had used cottonelle wipes on Thursday. Had not used those previously. Extremely itchy as of Thursday night. Then I got up Thursday morning and it was all red. REVIEW OF SYSTEMS GENERAL: Negative for malaise, significant weight loss and fever All other systems negative. PAST MEDICAL HISTORY Diagnosis Date Acquired keratoderma Lichen sclerosis Anemia Anticoagulant long-term use indication: stroke prevention atrial fibrillation At risk for bleeding associated with anticoagulants HAS-BLED score = 2 (age, bleeding) At risk for stroke [id number] = 4 (HTN, age2, female gender) Benign [...] Glaucoma - right eye left eye - [facility] . Dr Gao REPAIR FIRST ABDOMINAL WALL HERNIA 12/14/2012 2cm defect - Parietex Composite ventral patch 6cm STRESS TEST 04/14/2017 PAWAN 02/04/2018 ALLERGIES Amantadine, Capoten [Captopril], Cephalexin, Erythromycin, Hctz [Thiazides], Ivp Dye [Iodine], and Norvasc [Amlodipine Besylate] MEDICATIONS furosemide (LASIX) 20 mg tablet Take 1 tablet by mouth every other day. ferrous sulfate 325 mg (65 mg iron) tablet Take 1 tablet by mouth once daily. hydrALAZINE (APRESOLINE) 10 mg tablet Take 1 [...] once daily. Take on empty stomach. ForThyroid omeprazole (PRILOSEC) 40 mg capsule Take 1 [...] IF UNABLE, PLEASE REFER TO [facility]A AT [facility]. DX: EDEMA latanoprost (XALATAN) 0.005 % ophthalmic solution 1 Drop daily at bedtime. TRAVATAN Z 0.004 % Drop daily at bedtime. Cholecalciferol, Vitamin D3, 2,000 unit ORAL Cap Take one(1) tablet two(2) times daily. FAMILY HISTORY Problem Relation Age of [...] No Drug use: No PHYSICAL EXAM BP 150/80 (BP Site: Right Arm, BP Position: Sitting, BP Cuff Size: Regular Adult) Pulse 68 Temp36.4 C (97.6 F) Resp 12 Ht 157.5 cm (5' 2) Wt 64 kg (141 lb) SpO2 99% BMI 25.79 kg/m Physical Exam Constitutional: General: She is not in acute distress. Appearance: She is overweight. Skin: Findings: Erythema present. Comments: Erythematous maculopapular eruption Neurological: Mental Status: She is alert. Psychiatric: Behavior: Behavior is cooperative. ASSESSMENT/PLAN: 1. Perineal rash in female - ICD9: 782.1, ICD10: R21 Would suspect irritant contact dermatitis based on clinical presentation. Advise avoiding irritant (cottonelle towelettes). Topical steroid cream rx- see orders. Discussed medication indications, proper use, and potential adverse effects (also encouraged use to be no longer than 2 weeks). Recommendgood moisturizing cream such as cerave or cetaphil on a consistent basis. Rx for atarax in the caseshe continues to have a lot of continued pruritus. - TRIAMCINOLONE ACETONIDE 0.025 % TOPICAL CREAM - HYDROXYZINE HCL 25 MG TABLET Prescription instructions reviewed with patient as applicable. Potential red flag symptoms discussed with the patient. Reviewed appropriate action plan to take if red flag symptoms occur. Patient agreeable to treatment plan. Megha Mahoney PA-C documented in this encounterMary[facility] Hospital02-23-2024 Miscellaneous Notes* Telephone Encounter - Haydee Mccauley Ma - 08/21/2023 2:34 PM EST Patient notified. * Telephone Encounter - Haydee Mccauley Ma - 08/21/2023 1:31 PM EST ----- Message from Silvio Drake APRN.BILLING AND ACCOUNTING STAFF ASSISTANT sent at 08/21/2023 1:14 PM EST ----- Blood work similar to past readings and both decreased kidney function and anemia stable at this time. Thank you Silvio Drake APRN.CNP documented in this encounterMarymount Hospital02-20-2024 History of Present illness Narrative* Megha Mahoney PA-C - 08/18/2023 1:21 PM EST CC: Patient presents with: Follow Up HPI Reinier Elizabeth is a 87 year old female who presents today for BP f/u and to review results of renal US. Recently hospitalized at [facility] from 07/13-07/16 following syncopal episode after initiating of both terazosin (for elevated BP) and trazodone. Daughter reports they had issues with pulse ox dropping downin the hospital, have been monitoring it at home and seems like it has been WNL. Had in home nursing and PT come twice weekly up until last . I'm feeling real good right now. No longer having RLE discomfort as she was. Does have LE edema that is worse , as she is having to take lasix every other day at the present. Will be seeing Dr. Sewell(nephrology) on . Will also be seeing Faustina Hernandez through [facility] on as well. HTN: Ms. Elizabeth indicates a history of hypertension and states that she is feeling well and denies anysymptoms referable to elevated blood pressure. Specifically denies headache, chest pain, palpitations, dyspnea, and peripheral edema (well this isn't so bad at this point). Patient denies any side effects of her medication(s) and is compliant with their regimen. Normally BP is ~130s-150s/60s-70s. denies regular aerobic exercise. watches their diet for sodium, low fat and low cholesterol most of the time. Last 3 Encounter BP Readings: Date: BP: 08/18/2023 158/78 07/24/2023 154/60 07/09/2023 188/90 REVIEW OF SYSTEMS See HPI All other systems negative. PAST MEDICAL HISTORY Diagnosis Date Acquired keratoderma Lichen sclerosis Anemia Anticoagulant long-term use indication: stroke prevention atrial fibrillation At risk for bleeding associated with anticoagulants HAS-BLED score = 2 (age, bleeding) At risk for stroke [id number] = 4 (HTN, age2, female gender) Benign [...] May. right eye Jun. left eye - [facility] . Dr Gao REPAIR FIRST ABDOMINAL WALL HERNIA 12/14/2012 2cm defect - Parietex Composite ventral patch 6cm STRESS TEST 04/14/2017 PWAAN 02/04/2018 ALLERGIES Amantadine, Capoten [Captopril], Cephalexin, Erythromycin, [...] once daily. Take on empty stomach. ForThyroid omeprazole (PRILOSEC) 40 mg capsule Take 1 capsule by mouth daily before breakfast. 1/2 hr before meal. potassium chloride (K-TAB) 10 mEq tablet Take 1 tablet by mouth twice daily. XARELTO 15 mg tablet Take 15 mg [...] IF UNABLE, PLEASE REFER TO [facility] AT [facility]. DX: EDEMA latanoprost (XALATAN) 0.005 % ophthalmic solution 1 Drop daily at bedtime. TRAVATAN Z 0.004 % Drop daily at bedtime. Cholecalciferol, Vitamin D3, 2,000 unit ORAL Cap Take one(1) tablet two(2) times daily. Spirometers and Accessories magdalena Use 3 times a day, each time blow into it for 10 reps FAMILY HISTORY Problem Relation Age of Onset Heart Mother Hypertension Mother Ischemic Heart Disease Mother Hypertension Father Ischemic Heart Disease Father Heart Sister By-pass, Triple Ischemic Heart Disease Sister Heart Brother Stent Ischemic Heart Disease Brother Glaucoma Brother other (Renal Stones) Daughter Heart Maternal Aunt Social History Tobacco Use Smoking status: Former Years: 5 Types: Cigarettes Quit date: 07/06/1976 Years since quittin.1 Smokeless tobacco: Never Tobacco comments: Quit 1969's 4-5 cig per day Vaping Use Vaping Use: Never used Substance Use Topics Alcohol use: No Drug use: No PHYSICAL EXAM BP 132/64 (BP Site: Left Arm, BP Position: Sitting, BP Cuff Size: Large Adult) Pulse 62 Temp 36C (96.8 F) Resp 12 Ht 157.5 cm (5' 2) Wt 63 kg (139 lb) SpO2 100% BMI 25.42 kg/m General Appearance: well appearing, in no [...] 403.90, 585.3, ICD10: I12.9, N18.32 (primary diagnosis) Fluctuating creatinine-will recheck renal panel today - Continue current medications - Recommend home blood pressure monitoring, to bring results to next visit - Encouraged sodium restriction, DASH or Mediterranean diet - Recommend regular aerobic exercise -Follow-up as planned with both cardiology and nephrology - CBC + DIFF - COMP METABOLIC PANEL - RENAL FUNCTION PANEL - TSH BLD - T4 FREE/FREE THYROX 2. Essential hypertension - ICD9: 401.9, ICD10: I10 - Controlled - Continue current medications - Recommend home blood pressure monitoring, to bring results to next visit - Encouraged sodium restriction, DASH or Mediterranean diet - Recommend regular aerobic exercise - CBC + DIFF - COMP METABOLIC PANEL - RENAL FUNCTION PANEL - TSH BLD - T4 FREE/FREE THYROX 3. Anemia, unspecified type - ICD9: 285.9, ICD10: D64.9 Unclear etiology, history of GI bleed in the past-will recheck CBC - CBC + DIFF - COMP METABOLIC PANEL - RENAL FUNCTION PANEL - T4 FREE/FREE THYROX Follow-up in 4 weeks after seeing cardiology and nephrology Prescription instructions reviewed with patient as applicable. Potential red flag symptoms discussed with the patient. Reviewed appropriate action plan to take if red flag symptoms occur. Patient agreeable to treatment plan. Megha Mahoney PA-C documented in this encounterMarymount Hospital02-09-2024 Miscellaneous Notes* Telephone Encounter - Joyce Bazzi LPN - 08/07/2023 3:27 PM EST Patient notified of providers message and verbalized understanding * Telephone Encounter - Jolie Marshall APRN.CNS - 08/07/2023 3:20 PM EST Please let her know no blockage of renal arteries is seen on renal ultrasound. IMPRESSION Irregular cardiac rhythm noted. AORTA Aorta plaque noted without evidence of hemodynamically significant stenosis at level of the renals RIGHT RENAL Right renal artery: 0-59% stenosis. No evidence of hemodynamically significant stenosis. LEFT RENAL Left renal artery: 0-59% stenosis. No evidence of hemodynamically significant stenosis. documented in this encounterMarymount Hospital12-04-2023 Instructions* Patient Instructions* Jolie Marshall APRN.CNS - 06/01/2023 2:56 PM EST Increase hydralazine from 10 mg 3 times daily to 10 mg 4 times daily. Check blood pressure and heart rate daily and write down results. Okay to reduce to hydralazine 3 times daily if blood pressure in the 120-130 systolic range (top blood pressure number) or feeling dizzy or fatigued. documented in this encounterMarymount Hospital12-04-2023 History of Present illness Narrative* Jolie Marshall APRN.CNS - 06/01/2023 2:20 PM EST SUBJECTIVE: Advance Directive Discussion Never done Covid-19 Vaccine() due on 02/27/2023 DTaP,Tdap,Td Vaccine(3 - Td or Tdap) due on 06/07/2023 HPI Reinier Elizabeth is a 87 year old female. 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 Take on empty stomach. ForThyroid omeprazole (PRILOSEC) 40 mg capsule Take 1 [...] IF UNABLE, PLEASE REFER TO [facility]. DX: EDEMA latanoprost (XALATAN) 0.005 % ophthalmic [...] 2 (age, bleeding) At risk for stroke [id number] = 4 (HTN, age2, female gender) Benign [...] quittin.9 Smokeless tobacco: Never Tobacco comments: Quit 1969' [...] pressure number) or feeling dizzy or fatigued. Jolie Marshall APRN.CNS Medical Decision Making: Problems: Moderate: 1+ chronic illnesses with change Risk: Moderate: Drug management Medical Decision Making Level: 4 - Moderate documented in this encounterMarymount Hospital11-09-2023 Miscellaneous Notes* Telephone Encounter - Margie Garcia - 05/07/2023 11:22 AM EST Patient calling about hydralazine. Advised patient to check with pharmacy. documented in this encounterMarymount Hospital11-03-2023 History of Present illness Narrative* Toshia Drake APRN.BILLING AND ACCOUNTING STAFF ASSISTANT - 05/01/2023 12:10 PM EDT CC Patient presents with: 2 week follow up - blood pressure HPI Reinier Elizabeth is a 87 year old female who [...] afternoon. She had an appointment with her court commissioner yesterday, BP was 130/68. She brought her [...] 2 (age, bleeding) At risk for stroke [id number] = 4 (HTN, age2, female gender) Benign [...] Glaucoma - right eye left eye - [facility] . Dr Gao REPAIR FIRST ABDOMINAL WALL [...] once daily. Take on empty stomach. ForThyroid omeprazole (PRILOSEC) 40 mg capsule Take 1 [...] IF UNABLE, PLEASE REFER TO [facility]. DX: EDEMA latanoprost (XALATAN) 0.005 % ophthalmic [...] quittin.8 Smokeless tobacco: Never Tobacco comments: Quit 4-5 [...] BP continues to remain elevated in the officehowever it has improved from previous two weeks [...] plan Toshia Drake APRN.CNP documented in this encounterMarymount Hospital10-18-2023 Instructions* Patient Instructions* Megha Mahoney PA-C - 04/15/2023 3:45 PM EDT TrueBP average on the machine 217/67 - left arm sitting. Manual recheck 200/78 Continue on Carvedilol 12.5 mg twice daily, Losartan 50 mg twice daily. Will increase hydralazine to 10 mg three times daily. documented in this encounterMarymount Hospital10-18-2023 History of Present illness Narrative* Megha Mahoney PA-C - 04/15/2023 3:13 PM EDT CC: Patient presents with: Follow Up: blood pressure- elevated and check home bp monitor HPI Reinier Elizabeth is a 87 year old female who presents today for 1 week follow-up elevated blood pressure, and wanting to f/u on XR thoracic spine. Last visit was on 04/09/2023 with Silvio Drake, DARSHAN andat that time blood pressure was elevated at 189/72. Notes that she is more anxious about her daughter coming into town tomorrow and she hasn't seen herfor almost a year. REVIEW OF SYSTEMS CARDIOVASCULAR: Negative for chest pain, leg swelling and palpitations All other systems negative. PAST MEDICAL HISTORY Diagnosis Date Acquired keratoderma Lichen sclerosis Anemia Anticoagulant long-term use indication: stroke prevention atrial fibrillation At risk for bleeding associated with anticoagulants HAS-BLED score = 2 (age, bleeding) At risk for stroke [id number] = 4 (HTN, age2, female gender) Benign [...] 02/05/2018 LIG/TRNSXJ FLP TUBE ABDL/VAG APPR UNI/BI 1975 Tubal ligation PAST SURGICAL HISTORY OF 09/2000 CARDIAC CATH. PAST SURGICAL HISTORY OF 2018 Glaucoma - May. right eye left eye - [facility] . Dr Gao REPAIR FIRST ABDOMINAL WALL [...] once daily. Take on empty stomach. ForThyroid omeprazole (PRILOSEC) 40 mg capsule Take 1 [...] IF UNABLE, PLEASE REFER TO [facility]. DX: EDEMA latanoprost (XALATAN) 0.005 % ophthalmic [...] F) Resp 12 Ht 157.5 cm (5' 2) Wt 59 kg (130 lb) SpO2 99% [...] symptoms occur. Patient agreeable to treatment plan. Megha Mahoney PA-C documented in this encounterMarymount Hospital10-18-2023 Nurse Note* Kia Dixon - 04/15/2023 3:05 PM EDT Home BP monitor left arm :Error code E2, patient did not bring monitor book with her to know what the error code is documented in this encounterMarymount Hospital10-13-2023 Miscellaneous Notes* Telephone Encounter - Tonya Danielson OCCA - 04/10/2023 10:08 AM EDT TC to patient who verbalized understanding of providers message below and has no questions at this time. FREDDY Chavez * Telephone Encounter - Tonya Danielson OCCA - 04/10/2023 7:56 AM EDT ----- Message from Silvio Drake APRN.CNP sent at 04/10/2023 6:59 AM EDT ----- Please let patient know blood work is all within acceptable ranges. HgbA1c is now in normal range Thank you Silvio Drake APRN.BILLING AND ACCOUNTING STAFF ASSISTANT documented in this encounterMarymount Hospital10-12-2023 History of Present illness Narrative* Kirstie Arguello RT(R) - 04/09/2023 1:10 PM EDT Radiology Service Progress Note PATIENT NAME: Reinier Elizabeth DATE OF SERVICE: April 09, 2023 TIME: 1:18 PM PATIENT IDENTITY VERIFICATION COMPLETED USING TWO (2) IDENTIFIERS: Name and Date of confirmedby patient verbally. FALL SCREENING: Has the patient [...] IV DATA: Not applicable SIGNED BY: RT Misha(R) April 09, 2023 1:18 PM documented in this encounterMarymount Hospital10-12-2023 Instructions* Patient Instructions* Silvio Drake APRN.BILLING AND ACCOUNTING STAFF ASSISTANT - 04/09/2023 12:49 PM EDT Please take over the counter Vit d 3 2000 IU daily and get 8001-4842 mg per day calcium. Calcium isbest absorbed from your diet. Green vegetables and low fat dairy are good dietary sources of calcium. Walking, weight bearing exercise, resistance training , limiting alcohol and not smoking are alsogood ways to help maintain your bone mass. We will repeat the bone density in two years. If you add a calcium supplement you will not absorb more than 600 mg at a time so split the dosing . Yogurt, plain, low fat, 8 ounces 415 mg per serving [place] juice, calcium-fortified, 6 ounces 375 mg per [...] calcium sulfate, cup 253 mg per serving Chili, pink, canned, solids with bone, 3 ounces 181 mg per serving Cottage cheese, 1% milk fat, 1 cup 138 mg per serving Instant breakfast drink, various flavors and brands, powder prepared with water, 8 ounces 105-250 mg per serving Frozen yogurt, vanilla, soft serve, cup 103 mg per serving Uzslc-dt-hao cereal, calcium-fortified, 1 cup 100-1,000 mg per serving Turnip greens, fresh, boiled, cup 99 mg per serving Kale, fresh, cooked, 1 cup 94 mg per serving Kale, raw, chopped, 1 cup 90 mg per serving Tofu, soft, made with calcium sulfate, cup 138 mg per serving Ice cream, vanilla, cup 84 mg per serving Soy beverage, calcium-fortified, 8 ounces 80-500 mg per serving Lebanese cabbage, bok [place], raw, shredded, 1 cup 74 mg per serving Bread, white, 1 slice 73 mg per serving Pudding, chocolate, ready to eat, refrigerated, 4 ounces 55 mg per serving Tortilla, corn, fiuyv-lu-fnvc/porter, one 6 diameter 46 mg per serving Tortilla, flour, edokq-pb-boce/porter, one 6 diameter 32 mg per serving Sour cream, reduced fat, cultured, 2 tablespoons 31 mg per serving Bread, whole-wheat, 1 slice 30 mg per serving Broccoli, raw, cup 21 mg per serving Cheese, cream, regular, 1 tablespoon 14 mg per serving documented in this encounterMarymount Hospital10-12-2023 History of Present illness Narrative* Silvio Drake APRN.CNP - 04/09/2023 12:28 PM EDT CC: Patient presents with: Recheck: 3 month follow up Immunizations: Flu vaccination HPI Reinier Elizabeth is a 87 year old female who presents today for routine follow up. HTN and HLD: Ms. Elizabeth indicates that she is feeling well and denies any symptoms referable to elevated blood pressure. Specifically denies headache, chest pain, palpitations, dyspnea, and peripheral edema. Patient denies any side effects of her medication(s) and is compliant with their regimen.She does check BP's away from this office [...] 2 (age, bleeding) At risk for stroke [id number] = 4 (HTN, age2, female gender) Benign [...] Glaucoma - right eye left eye - [facility] . Dr Gao REPAIR FIRST ABDOMINAL WALL [...] IF UNABLE, PLEASE REFER TO [facility]. DX: EDEMA alendronate (FOSAMAX) 70 mg tablet [...] to affected area twice daily. TO AFFECTEDAREA. furosemide (LASIX) 20 mg tablet Take 1 tablet by mouth every other day. hydrALAZINE (APRESOLINE) 10 mg tablet Take 1 tablet by mouth twice daily. latanoprost (XALATAN) 0.005 % ophthalmic solution 1 Drop daily at bedtime. levothyroxine (LEVOXYL) 25 mcg tablet Take 1 tablet by mouth once daily. Take on empty stomach. ForThyroid losartan (COZAAR) 50 mg tablet take 1 [...] done Influenza Vaccine(1) due on 02/27/2023 Covid-19 Vaccine(4 - 2022- season) due on 02/27/2023 Shingrix [...] symptoms occur. Patient agreeable to treatment plan. Silvio Drake APRN.CNP documented in this encounterMarymount Hospital09-25-2023 Miscellaneous Notes* Telephone Encounter - Kia Dixon - 03/23/2023 11:05 AM EDT Patient has been identified by name [...] applicable Please advise. Thank you. Kia Dixon * Telephone Encounter - Allyson Gaxiola - 03/23/2023 10:12 AM EDT Patient has been identified by name [...] and advise. Allyson Gaxiola documented in this encounterMarymount Hospital08-25-2023 Miscellaneous Notes* Telephone Encounter - Kia Jamil LPN - 02/20/2023 10:45 AM EDT Patient has been identified by name [...] Please advise. Thank you. Kia Jamil LPN * Telephone Encounter - Margie Garcia - 02/19/2023 9:55 AM EDT Pharmacy verified in [facility] Patient has been identified by name and [...] (133 lb) Not applicable Please advise. Margie Bryant documented in this encounterMarymount Hospital08-09-2023 Miscellaneous Notes* Telephone Encounter - Silvio Drake APRN.CNP - 02/04/2023 7:33 AM EDT Urszula Drake APRN.CNP * Telephone Encounter - Jess Fernandez RN - 02/03/2023 1:41 PM EDT Pt calling and requesting Endocrinology referral be faxed to Dr. Terry Basilio's office. Faxed as requested. Jess Fernandez RN * Telephone Encounter - Luh George RN - 02/02/2023 12:36 PM EDT Pt called and is notified of providers message and instructions. Pt voices understanding, but states her daughter comes with her to all her appointment and she will be out of town until March. She states she will wait until her 04/09/23 appointment with Silvio Drake ENVIRONMENTAL ISSUES INSTRUCTOR and discuss it then. Luh George, RN * Telephone Encounter - Silvio Drake APRN.CNP - 02/02/2023 12:02 PM EDT There is not much improvement from the fosamax. I am consulting her to endocrinology for other treatment options. Thank you Silvio Drake APRN.CNP * Telephone Encounter - Brianne Toribio RN - 01/27/2023 11:38 AM EDT Patient calls to request results of bone density testing from 01/12/2023. Patient taking fosamax weekly as directed. Patient reports she is not taking OTC calcium. Noted on list order for Caltrate 600 mg twice daily. Verified twice that she is not taking. Brianne Toribio RN documented in this encounterMarymount Hospital08-01-2023 NoteHNO ID: [id number] Author: Maura Giles MD Service: ? Author Type: Physician Type: Progress Notes Filed: 02/02/2023 7:41 PM Note Text: PRIMARY CARE PHYSICIAN: Anay Schuler [address] [place] [address] REFERRING PHYSICIAN: Fredis Marie MD ([facility]) [address] [place] [id number] Patient Care Team: Anay Schuler MD as PCP - General (Internal Medicine) Fredis Marie as Specialty Pet Resort Concierge (Cardiology) Friend, Yuriy Oliver DO as Specialty Pet Resort Concierge (Gastroenterology) CHIEF COMPLAINT: Evaluation for stroke prevention HISTORY OF PRESENT ILLNESS: Ms. Elizabeth is a 87 year old female who presents today for evaluation, referred by [facility], accompanied today by her daughter. Ms. Elizabeth has history of atrial fibrillation that was [...] May. right eye Jun. left eye - [facility] . Dr Gao REPAIR FIRST ABDOMINAL WALL HERNIA 12/14/2012 2cm defect - Parietex Composite ventral patch 6cm STRESS TEST 04/14/2017 PAWAN 02/04/2018 SOCIAL HISTORY Social History Tobacco Use Smoking status: Former Years: 5.00 Types: Cigarettes Quit date: 07/06/1976 Years since quittin.6 Smokeless tobacco: Never Tobacco comments: Quit 1969' [...] by mouth twice da (more content not included)...[facility]08-01-2023 History of Present illness Narrative* Maura Giles MD - 01/27/2023 3:44 PM EDT PRIMARY CARE PHYSICIAN: Anay Schuler [address] [place] [address] REFERRING PHYSICIAN: Fredis Marie MD ([facility]) [address] [address] Patient Care Team: Anay Schuler MD as PCP - General (Internal Medicine) Fredis Marie as Specialty Pet Resort Concierge (Cardiology) Friend, Yuriy B, DO as Specialty Pet Resort Concierge (Gastroenterology) CHIEF COMPLAINT: Evaluation for stroke prevention HISTORY OF PRESENT ILLNESS: Ms. Elizabeth is a 87 year old female who presents today for evaluation, referred by [facility], accompanied today by her daughter. Ms. Elizabeth has history of atrial fibrillation that was diagnosed in late 2021. She was treated with oral anticoagulation therapy with Eliquis, and ventricular rate control with metoprolol. She did have an episode of persistent atrial fibrillation in late March or April 2022, underwent electrical cardioversion at that time. She has developed anemia ontwo occasions, was found to have occult blood from GI tract. She states she underwent colonoscopy and EGD by Dr. Collins, had electrocautery performed that resolved the bleeding. She states she again r equired electrocautery treatment in October 2022. She is [...] May. right eye Jun. left eye - [facility] . Dr Gao REPAIR FIRST ABDOMINAL WALL HERNIA 12/14/2012 2cm defect - Parietex Composite ventral patch 6cm STRESS TEST 04/14/2017 PAWAN 02/04/2018 SOCIAL HISTORY Social History Tobacco Use Smoking status: Former Years: 5.00 Types: Cigarettes Quit date: 07/06/1976 Years since quittin.6 Smokeless tobacco: Never Tobacco comments: Quit 4-5 [...] once daily. Take on empty stomach. ForThyroid atorvastatin (LIPITOR) 20 mg tablet Take 1 [...] IF UNABLE, PLEASE REFER TO [facility]. DX: EDEMA latanoprost (XALATAN) 0.005 % ophthalmic [...] bradycardia 54 bpm; PACs; normal conduction intervals (AR 192 ms, QRS 88 ms); QTc 403 [...] old 1 History of hypertension IMPRESSION: Ms. Elizabeth has permanent atrial fibrillation that is not [...] bleeding source, according to the patient. Ms. Elizabeth is referred to me for consideration of an alternative to oral anticoagulation therapy, left atrial appendage closure device implantation. I had a detailed discussion with Ms. Elizabeth and her daughter regarding the Watchman left [...] for blood transfusion). I did inform Ms. Elizabeth that toproceed with Watchman device implant the [facility]/Medicare requires shared decision making documentation from a non-implanting physician -- either PCP or general commonwealth attorney or GI specialist that outlines the rationale [...] have the caveat that if she is consideredto have been adequately treated for the GI bleeding and the risk of future bleeding is not high ---in other words if her physicians, and in particular I would like the input of her GI specialist , feel that the GI bleeding risk has been sufficiently mitigated with the electrocautery treatments, then perhaps the risk:benefit of oral anticoagulation therapy has become favorable. I would like the input from GI, PCP and general commonwealth attorney in this regard but as I stated particularly theGI specialist. At her advanced age, if it is determined that she can be treated with oral anticoagulation therapy with reasonable safety then this is preferred to an invasive procedure. I had a detailed discussion with Ms. Elizabeth and her daughter regarding my evaluation and recommendations. After our discussion, Ms. Elizabeth and her daughter expressed understanding and I answered all questions to their apparent satisfaction. I provided them with educational literature and also directed them to the [employer] website for additional educational information. They will givethis option consideration, and if they determined they would like to pursue Watchman implant AND her physicians including Dr. Collins consider the risk:benefit of termite renewal inspector oral anticoagulation therapy to be unfavorable, then I would only need the shared decision making statement from one of her ph ysicians. MODIFIED KINJAL SCORE: 2 = Slight disability: [...] Level: 4 - Moderate documented in this encounterMarymount Hospital08-01-2023 Nurse Note* Allison Gaxiola MA - 01/27/2023 3:24 PM EDT Patient denies any cardiac issues or symptoms. documented in this encounterMarymount Hospital07-17-2023 History of Present illness Narrative* Wilber Tariq RT(R) - 01/12/2023 2:00 PM EDT Radiology Service Progress Note PATIENT NAME: Reinier Elizabeth DATE OF SERVICE: January 12, 2023 TIME: 1:56 PM PATIENT IDENTITY VERIFICATION COMPLETED USING TWO (2) IDENTIFIERS: Name and Date of confirmedby patient verbally. FALL SCREENING: Has the patient [...] 12, 2023 1:56 PM documented in this encounterMarymount Hospital07-12-2023 History of Present illness Narrative* Silvio Drake APRN.BILLING AND ACCOUNTING STAFF ASSISTANT - 01/07/2023 1:28 PM EDT CC: Patient presents with: Follow Up: elevated blood pressure and refills needed HPI Reinier Elizabeth is a 87 year old female who presents today for blood pressure follow up. Was seen 4 weeks ago with elevated blood pressure. Sees cardiology and nephrology for BP control. No med changes were made at appointment. Verified with specialty offices that our med list was accurate. HTN: Ms. Elizabeth indicates that she is feeling well and [...] May. right eye Jun. left eye - [facility] . Dr Gao REPAIR FIRST ABDOMINAL WALL [...] once daily. Take on empty stomach. ForThyroid atorvastatin (LIPITOR) 20 mg tablet Take 1 [...] IF UNABLE, PLEASE REFER TO [facility]. DX: EDEMA latanoprost (XALATAN) 0.005 % ophthalmic [...] F) Resp 12 Ht 157.5 cm (5' 2) Wt 60.3 kg (133 lb) SpO2 97% [...] symptoms occur. Patient agreeable to treatment plan. Silvio Drake APRN.CNP documented in this encounterMarymount Hospital06-20-2023 Miscellaneous Notes* Telephone Encounter - Jess Bryant - 12/16/2022 2:06 PM EDT Please see Kayla Grace's note below as patient is requesting a refill on this medication * Telephone Encounter - Leigh Ann Kirk LPN - 12/16/2022 1:54 PM EDT Detailed message left for pt on her cell phone as noted in her chart to do. Leigh Ann Kirk LPN ' * Telephone Encounter - Kayla Grace APRN.CNP - 12/16/2022 12:57 PM EDT Please ask pt to follow with PCP for this as she has taken alendronate long- term. PCP will decide continuation or if and when she needs to stop it. Kayla Garce APRN.BILLING AND ACCOUNTING STAFF ASSISTANT * Telephone Encounter - Margie Wheeler RN - 12/16/2022 10:17 AM EDT Pharmacy generated refill request. Last seen 10/29/21 Requested Prescriptions Pending Prescriptions Disp Refills alendronate (FOSAMAX) 70 mg tablet [Pharmacy Med Name: ALENDRONATE SODIUM 70 MG TAB] 12 tablet 3 Sig: take 1 tablet by mouth every week Margie Wheeler RN documented in this encounterMarymount Hospital04-14-2023 Miscellaneous Notes* Telephone Encounter - Haydee Mccauley Ma - 10/10/2022 2:07 PM EDT Patient notified. * Telephone Encounter - Haydee Mccauley Ma - 10/10/2022 2:05 PM EDT ----- Message from Anay Schuler MD sent at 10/10/2022 8:12 AM EDT ----- Reineir iron levels are good. She would benefit from vit b12 tablets although her vit b12 levels are in the range of normal, theyare low normal. Her hb is 10.1, which is leeser than 10.7 in the past. She may be losing some blood from gi tract , and following upwith the egd is a good idea Cont the compression stockings I hope her bp is staying better at home Regards, Anay Schuler MD documented in this encounterMarymount Hospital04-12-2023 Miscellaneous Notes* Telephone Encounter - Anay Schuler MD - 10/08/2022 8:14 PM EDT I sent pot chl tablets as requested regularly a * Telephone Encounter - Jess Fernandez RN - 10/08/2022 2:25 PM EDT Patient calling regarding her potassium chloride 10mEq prescription. Patient states capsules were ordered for her yesterday and she is requesting tablets. Please send order to [facility]. Thank you. documented in this encounterMarymount Hospital03-15-2023 History of Present illness Narrative* Anay Schuler MD - 09/10/2022 2:19 PM EDT Reason for Visit Patient presents with: Recheck: 3 month follow up Reinier Elizabeth is a 86 year old female who [...] not working. Has a log of bp andthey are mostly in the 135 to 157 [...] Glaucoma - right eye left eye - [facility] . Dr Gao REPAIR FIRST ABDOMINAL WALL [...] ICD10: R53.83 Is better now than before. Anay Schuler MD documented in this encounterMarymount Hospital02-06-2023 Miscellaneous Notes* Telephone Encounter - Luh George RN - 08/04/2022 4:51 PM EST Pt called and is notified of providers message and instructions. Pt voices understanding. Luh George RN * Telephone Encounter - Silvio Drake APRN.DARSHAN - 08/04/2022 4:26 PM EST I would prefer a urine sample but also do not want to delay treatment. I am going to prescribe an antibiotic. If symptoms do not improve or at any time worsen, she really needs seen for further evaluation and for a urine sample. Thank you Silvio Drake APRN.DARSHAN * Telephone Encounter - Luh George RN - 08/04/2022 10:36 AM EST Pt called in and reports she took [...] like a UA and urine culture. Please calland advise. documented in this encounterMarymount Hospital01-04-2023 Miscellaneous Notes* Telephone Encounter - Abimbola Abbott LPN - 07/02/2022 3:30 PM EST Patient calling back Dr Frey office nurse said that the information faxed to [facility] attention Dr Frey please. * Telephone Encounter - Jo Adair LPN - 07/01/2022 1:28 PM EST Patient aware and has contact Dr. Cabrera office to update of recent labs. Message left asking office to call her back. Will discuss stopping Xeralto at that time. * Telephone Encounter - Ruth Fallon APRN.CNP - 07/01/2022 12:29 PM EST Yes, she needs to see Dr. Karina CHIANG, thanks for faxing that information. She really needs to be holding her blood thinner because she is likely GI bleeding but that comes with an increased risk forpossible stroke given her a. Fib. I would recommend holding it at least until seen by Dr. Collins but she can call cardiology and discuss with them if she prefers. * Telephone Encounter - Jo Adair LPN - 07/01/2022 11:20 AM EST Spoke with patient and notified of same. Copy of last office visit and labs faxed to Dr. Collins's office. States she seen Celeste Bell NP in Dr. Collins's office GI. Her commonwealth attorney is Dr. Frey. * Telephone Encounter - Ruth Fallon APRN.CNP - 07/01/2022 9:08 AM EST Stool test was positive for blood and blood counts slowly decreasing. Looks like she was referred to GI in the past, she needs to call and be seen with them MARIIA especially since on the Xarelto from cardiology for her a. Fib. Can we also find out who she sees for GI and cardiology? Thanks documented in this encounterMarymount Hospital01-03-2023 Miscellaneous Notes* Telephone Encounter - Felicity Sprague LPN - 07/01/2022 10:06 AM EST Pt requesting 90 day supply. Felicity MONTENEGRO [...] you. Felicity Sprague LPN documented in this encounterMarymount Hospital12-16-2022 Miscellaneous Notes* Telephone Encounter - Silvio Drake APRN.CNP - 06/13/2022 7:55 AM EST No TSH level in labs, discussed further in PCP visit. Silvio Drake APRN.CNP * Telephone Encounter - Haydee Mccauley Ma - 06/04/2022 12:23 PM EST Latest lab placed on PCP for review. * Telephone Encounter - Silvio Drake APRN.CNP - 06/02/2022 4:38 PM EST TSH was normal in March. Was this drawn elsewhere? If so please get result on place on mine or Dr. Julia vega. Thank you Silvio Drake APRN.DARSHAN * Telephone Encounter - Briana Yan LPN - 06/02/2022 12:12 PM EST Daughter calls back to report thyroid lab was off at the beginning of April. Daughter believes Dr. Sewell had ordered that one. The pt saw Dr. Frey in April and he said her tsh was a little off and pcp might want to recheck thyroid labs. Briana Yan LPN * Telephone Encounter - Richie Johnson LPN - 05/31/2022 10:53 AM EST Pt daughter, Murtaza, calling to state pt's commonwealth attorney wanted thyroid levels rechecked. Pt is coming into office early next week to have labs drawn for PCP (CMP, CBC). Murtaza asking if PCP will add thyroid labs on so pt get it all done with 1 lab drawn. Advised PCP is out of office until Thursday. Please advise and notify Murtaza. Richie Johnson LPN documented in this encounterMarymount Hospital12-01-2022 History of Past illness Narrative* Problem [...] of this encounter (statuses as of 01/28/2023) [facility] Narrative* Problem [...] of this encounter (statuses as of 02/03/2023) [facility] Narrative* Problem [...] of this encounter (statuses as of 02/04/2023) [facility] Narrative* Problem [...] of this encounter (statuses as of 02/20/2023) [facility] Narrative* Problem [...] of this encounter (statuses as of 03/23/2023) [facility] Narrative* Problem [...] of this encounter (statuses as of 04/10/2023) [facility] Narrative* Problem [...] of this encounter (statuses as of 04/15/2023) [facility] Narrative* Problem [...] of this encounter (statuses as of 04/16/2023) [facility] Narrative* Problem [...] of this encounter (statuses as of 05/03/2023) [facility] Narrative* Problem [...] of this encounter (statuses as of 05/05/2023) [facility] Narrative* Problem [...] of this encounter (statuses as of 05/07/2023) [facility] Narrative* Problem [...] of this encounter (statuses as of 06/02/2023) [facility] Narrative* Problem [...] as of this encounter (statuses as of 08/07/2023) [facility] Narrative* Problem [...] as of this encounter (statuses as of 08/18/2023) [facility] Narrative* Problem [...] as of this encounter (statuses as of 08/21/2023) [facility] Narrative* Problem [...] as of this encounter (statuses as of 09/29/2023) [facility] Narrative* Problem [...] as of this encounter (statuses as of 10/07/2023) [facility] of Present illness Narrative* Anay Schuler MD - 05/07/2022 1:04 PM EST Reason for Visit No chief complaint on file. Reinier Elizabeth is a 86 year old female who [...] Glaucoma - right eye left eye - [facility] . Dr Gao REPAIR FIRST ABDOMINAL WALL [...] 69 Resp 12 Ht 157.5 cm (5' 2) Wt 56.7 kg (125 lb) SpO2 99% [...] adequate hydration Keeping blood pressure under control. Anay Schuler MD documented in this encounterMarymount Hospital10-24-2022 History of Present illness Narrative* Anay Schuler MD - 04/21/2022 2:57 PM EDT Reason for Visit Patient presents with: Follow Up Reinier Elizabeth is a 86 year old female who [...] - May. right eye left eye - [facility] . Dr Gao REPAIR FIRST ABDOMINAL WALL [...] quittin.8 Smokeless tobacco: Never Tobacco comments: Quit 1969's [...] F) Resp 12 Ht 157.5 cm (5' 2) Wt 59.4 kg (131 lb) SpO2 98% [...] adequate hydration Keeping blood pressure under control. Anay Schuler MD documented in this encounterMarymount Hospital10-17-2022 Miscellaneous Notes* Telephone Encounter - Anay Schuler MD - 04/14/2022 4:41 PM EDT noted [...] would like ATB. * Telephone Encounter - Anay Schuler MD - 04/14/2022 9:33 AM EDT Please [...] for possible early pneumonia. documented in this encounterMarymount Hospital10-14-2022 Miscellaneous Notes* Telephone Encounter - Joyce Dewey LPN - 04/11/2022 5:04 PM EDT Patient notified of providers message and verbalized understanding. * Telephone Encounter - Anay Schuler MD - 04/11/2022 4:42 PM EDT We [...] in the middle of the week. Regards, Anay Schuler MD * Telephone Encounter - Anay Schuler MD - 02/21/2022 5:56 PM EDT We [...] day appt with pcp. documented in this encounterMarymount Hospital10-13-2022 History of Present illness Narrative* Simone Parkinson RT(R) - 04/10/2022 11:50 AM EDT Radiology Service Progress Note PATIENT NAME: Reinier Elizabeth DATE OF SERVICE: April 10, 2022 TIME: 11:37 AM PATIENT IDENTITY VERIFICATION COMPLETED USING TWO (2) IDENTIFIERS: Name and Date of confirmedby patient verbally. FALL SCREENING: Has the patient had 2 falls in the last year or 1 fall with injury or currently using an Ambulatory Assistive Device (Walker, Cane, Wheelchair, Crutches, etc.)? No PATIENT GENDER DATA: Female. status: : No status: NO. PATIENT RELEVANT IMPLANT DATA REVIEWED: Not Applicable RADIOLOGY DEPARTMENT: General X-ray: Exam(s) Completed: Chest X-Ray PERIPHERAL IV DATA: Not applicable SIGNED BY: RT Zain(R) April 10, 2022 11:37 AM documented in this encounterMarymount Hospital10-13-2022 Miscellaneous Notes* Telephone Encounter - Olga Juarez LPN - 04/10/2022 11:39 AM EDT Patient currently getting xray now * Telephone Encounter - Silvio Drake APRN.CNP - 04/10/2022 11:34 AM EDT Patient saw Dr. Schuler yesterday and was told to have follow up chest xray for continued cough. Order placed. Silvio Drake APRN.CNP documented in this encounterMarymount Hospital10-12-2022 History of Present illness Narrative* Anay Schuler MD - 04/09/2022 5:30 PM EDT Reason for Visit Patient presents with: Recheck: wants something for the cough Reinier Elizabeth is a 86 year old female who presents here today for Above Complaints. Health Maintenance SHINGRIX VACCINE(1 of 2) ADVANCE DIRECTIVE DISCUSSION DEPRESSION ASSESSMENT COVID-19 VACCINE(4 - Booster for Moderna series) INFLUENZA(1) HPI Reinier has had a very hard time in [...] OF 05/2012, 2018 Glaucoma - right eye Nolan. left eye - [facility] . Dr Gao REPAIR FIRST ABDOMINAL WALL [...] F) Resp 12 Ht 157.5 cm (5' 2) Wt 61.2 kg (135 lb) SpO2 98% [...] LEVOTHYROXINE 25 MCG TABLET - TSH BLD Anay Schuler MD documented in this encounterMarymount Hospital10-07-2022 Miscellaneous Notes* Telephone Encounter - Haydee Mccauley Ma - 04/04/2022 1:09 PM EDT Spoke with daughter, patient currently in the ED. * Telephone Encounter - Silvio Drake APRN.CNP - 04/04/2022 12:49 PM EDT Please let patient and daughter know that I agree this needs urgent evaluation and Dr. Schuler is in agreement with this. Her chest xray shows slight increase in fluid on lungs even with her lasix increase by cardiology, kidney function slightly worse, and potassium had improved but still a little low. We will fax chest xray and labs to cardiology as requested. Thank you Silvio Drake APRN.BILLING AND ACCOUNTING STAFF ASSISTANT * Telephone Encounter - Brianne Toribio RN - 04/04/2022 10:23 AM EDT Patient's daughter calls to report that patient is urinating very little since yesterday morning. Patient is just having drops of urine. Last time normal urination occurred was yesterday upon awakening. Per nurse triage protocol recommended ED now. Murtaza reports that patient has been having trouble with fluids and kidneys's and Dr. Squires has been working with patient on lasix dose. Notified Murtaza dc contact Tex Squires CNP but our recommendation would be ED now d/t very little urination in greater than 24 hours. Murtaza verbalizes understanding. Requested labs and CXR be faxed to Dr. Squires. Faxed to Tex Squires CNP at [phone]. Brianne Toribio RN documented in this encounterMarymount Hospital10-05-2022 Miscellaneous Notes* Telephone Encounter - Haydee Mccauley Ma - 04/02/2022 7:29 PM EDT Patient notified. * Telephone Encounter - Silvio Drake APRN.CNP - 04/02/2022 7:19 PM EDT Please let patient and daughter know that when I saw them earlier, I had not seen this result yet and di not realize it had been completed. This was negative for C-diff. No need to repeat. Thank you Silvio Drake APRN.CNP documented in this encounterMarymount Hospital10-05-2022 History of Present illness Narrative* Silvio Drake APRN.CNP - 04/02/2022 3:28 PM EDT CC: Patient presents with: Recheck: 2 week follow up, pneumonia HPI Reinier Elizabeth is a 86 year old female who [...] - May. right eye left eye - [facility] . Dr Gao REPAIR FIRST ABDOMINAL WALL [...] IF UNABLE, PLEASE REFER TO [facility] AT [facility]. DX: EDEMA latanoprost (XALATAN) 0.005 % ophthalmic [...] will have her follow up with Dr. Schuler next week - XR CHEST 2V FRONTAL/LAT [...] symptoms occur. Patient agreeable to treatment plan. Silvio Drake APRN.CNP documented in this encounterMarymount Hospital10-03-2022 Miscellaneous Notes* Telephone Encounter - Silvio Drake APRN.CNP - 03/31/2022 7:24 AM EDT Reviewed in appointment today. Silvio Drake APRN.CNP * Telephone Encounter - Abimbola Abbott LPN - 03/28/2022 4:34 PM EDT Patient daughter Verona Bates returned call and went over notes from Silvio Drake ENVIRONMENTAL ISSUES INSTRUCTOR with understanding. Daughter said mother told her she was having loose stools. She was trying to have her drink some Pedilyte but mother likes water. Daughter said [facility] told her this morning that he sent order for lab work over and mentioned having chest xray done. * Telephone Encounter - Haydee Mccauley Ma - 03/28/2022 4:22 PM EDT Left message on detailed VM. * Telephone Encounter - Silvio Drake APRN.CNP - 03/28/2022 3:39 PM EDT I can put in the order for Cdiff. Is she continuing with diarrhea? Also, I can send in a new prescription for the benzonatate but with the increase in Lasix, if this is from fluid overload this hopefully will improve this as well. Thank you Silvio Drake APRN.CNP * Telephone Encounter - Yolette Pérez RN - 03/28/2022 1:32 PM EDT Patient's daughter Murtaza calls and states patient had see commonwealth attorney Tex Squires. Tex has some concerns that [...] Thursday. Patient continues to have a cough. Murtaza asking if provider can send in new prescription for benzonateor increase the dose? Please review and advise, Yolette Pérez RN documented in this encounterMarymount Hospital09-23-2022 Miscellaneous Notes* Telephone Encounter - Haydee Mccauley Ma - 03/21/2022 3:51 PM EDT Patient notified, appointment scheduled. * Telephone Encounter - Silvio Drake APRN.CNP - 03/21/2022 3:38 PM EDT Please let patient know this has been ordered and sent to [facility]. I would like her to follow up in 2 weeks. Let her know for any shortness of breath, chest pain, or any other urgent concerns she needs to go to ER. Thank you Silvio Drake APRN.CNP * Telephone Encounter - Luh George RN - 03/21/2022 3:12 PM EDT Pt called and is notified of providers results and instructions. Pt voices understanding. Pt statesshe doesn't have an allergy to penicillin that she knows of. Pt would like antibiotics sent to [facility] in [place]. Luh George RN * Telephone Encounter - Silvio Drake APRN.CNP - 03/21/2022 12:17 PM EDT Please let patient know she is negative for COVID, and her blood counts have continued to improve. Her chest xray does show developing pneumonia. I am ordering 2 different antibiotics for this, augmentin and doxycyline. Has she ever had any allergic reaction to penicillin based antibiotics? Thank you Silvio Drake APRN.DARSHAN documented in this encounterMarymount Hospital09-22-2022 History of Present illness Narrative* Silvio Drake APRN.CNP - 03/20/2022 2:48 PM EDT CC: Patient presents with: Recheck: Follow up, cough, weak, bowel issues HPI Reinier Elizabeth is an 86 year old female who [...] at her hospital follow up with Dr. Schuler 10 days ago and blood pressure medications were decreased. HTN: Ms. Elizabeth indicates that she is feeling well and denies any symptoms referable to elevated blood pressure. Specifically denies headache, chest pain, palpitations, dyspnea, and peripheral edema. Patient denies any side effects of her medication(s) and is compliant with their regimen. She does check BP's away from this office with average BP's in the dec036h/60s-70s range. . Last 3 Encounter BP Readings: [...] SURGICAL HISTORY OF 05/2012, 2019 Glaucoma - Dec. right eye left eye - [facility] . Dr Gao REPAIR FIRST ABDOMINAL WALL [...] IF UNABLE, PLEASE REFER TO [facility] AT [facility]. DX: EDEMA latanoprost (XALATAN) 0.005 % ophthalmic [...] symptoms occur. Patient agreeable to treatment plan. Silvio Drake APRN.CNP documented in this encounterMarymount Hospital09-16-2022 Miscellaneous Notes* Telephone Encounter - Shanita West LPN - 03/14/2022 3:28 PM EDT Last appt with pcp 03/10/22 * Telephone Encounter - Megha Betancourt Pss - 03/14/2022 2:00 PM EDT Patient has been identified by name and date of : Yes Requested Prescriptions Pending Prescriptions Disp Refills omeprazole (PRILOSEC) 40 mg capsule 90 capsule 3 Sig: Take 1 capsule by mouth daily before breakfast. 1/2 hr before meal. RX INSTRUCTIONS: Patient aware RX will be sent to pharmacy. No need to notify patient. Megha Betancourt Pss documented in this encounterMarymount Hospital09-12-2022 History of Present illness Narrative* Anay Schuler MD - 03/10/2022 4:24 PM EDT Reason for Visit Patient presents with: Hospital F/U Reinier Elizabeth is a 86 year old female who [...] - May. right eye left eye - [facility] . Dr Gao REPAIR FIRST ABDOMINAL WALL [...] - TSH BLD - CBC + DIFF Anay Schuler MD documented in this encounterMarymount Hospital08-26-2022 History of Present illness Narrative* Anay Schuler MD - 02/21/2022 2:36 PM EDT Reason for Visit Patient presents with: Same Day Appointment: low blood pressure, weak, chest pressure yesterday Reinier Elizabeth is a 86 year old female who [...] - May. right eye left eye - [facility] . Dr Gao REPAIR FIRST ABDOMINAL WALL [...] F) Resp 12 Ht 157.5 cm (5' 2) Wt 57.2 kg (126 lb) SpO2 99% [...] - ICD9: 787.91, ICD10: R19.7 Some sweating. Anay Schuler MD documented in this encounterMarymount Hospital08-18-2022 Miscellaneous Notes* Telephone Encounter - Richie [...] who patient spoke with, General Surgery in [place] will see patient. left patient message to call and schedule. Gave direct number [phone]. Richie Fernandes documented in this encounterMarymount Hospital07-30-2022 Miscellaneous Notes* Telephone Encounter - Megha Head - 01/25/2022 12:08 PM EDT T/c to pt, she stated that she was not interested in scheduling at this time. She is following up with a kidney doctor and GI specialist at the [facility]. Thank you, Megha Head * Telephone Encounter - Olga Juarze LPN - 01/09/2022 10:37 AM EDT Left message to return call to schedule. * Telephone Encounter - Anay Schuler MD - 01/08/2022 11:33 PM EDT Please set reinier up to see us in the next couple weeks for her results Regards, Anay Schuler MD documented in this encounterMarymount Hospital07-23-2022 Miscellaneous Notes* Telephone Encounter - Yolette Caban - 01/18/2022 12:45 PM EDT Spoke with patient and she does not want to see a cloth baler outside of [place]. Patient will call [facility] to schedule locally. Yolette Caban * Telephone [...] to schedule appt with general surgery at [facility], but they would not let her schedule, telling her it sounds like she needs to see gastro? Advised her to call pcp. Please advisepatient. * Telephone Encounter - Luh George RN - 01/15/2022 1:02 PM EDT Called and left a detailed voicemail notifying patient of providers message. Hospital phone number was for Pt to call back and schedule appointment with general surgeon. Luh George RN * Telephone Encounter - Toshia Drake APRN.CNP - 01/15/2022 9:42 AM EDT Stool test was positive for hidden blood. Recommend referral to general surgery for further recommendations due to anemia and positive occult blood test. Toshia Drake APRN.CNP documented in this encounterMarymount Hospital07-21-2022 Miscellaneous Notes* Telephone Encounter - Kayla Grace APRN.CNP - 01/16/2022 12:38 PM EDT Vitamin D level ordered to be drawn with next lab draw. Kayla Grace APRN.CNP * Telephone Encounter - Claire Estes RN - 01/16/2022 10:28 AM EDT Refill request received from pharmacy. Patient last seen in the office on 10/29/21. Claire Estes RN documented in this encounterMarymount Hospital06-29-2022 Miscellaneous Notes* Telephone Encounter - Yany Garza Cma - 12/25/2021 2:44 PM EDT Patient notified and verbalized understanding Yany Garza Cma * Telephone Encounter - Silvio Drake APRN.CNP - 12/25/2021 2:14 PM EDT Please let patient know that kidney function has decreased. She needs to drink plenty of water, avoid ibuprofen, advil, aleve, or any other over the counter anti-inflammatories. We will recheck in 2 weeks. Thank you Silvio Drake APRN.CNP documented in this encounterMarymount Hospital06-14-2022 History of Present illness Narrative* Anay Schuler MD - 12/10/2021 1:18 PM EDT Welcome [...] May. right eye Jun. left eye - [facility] . Dr Gao REPAIR FIRST ABDOMINAL WALL [...] 56 Resp 16 Ht 159 cm (5' 2.6) Wt 60.8 kg (134 lb) BMI 24.04 kg/m Alert and oriented X 3: YES Body mass index is 24.04 kg/m . Visual acuity: ASSESSMENT/PLAN: 86 year old female The following prevention plan was discussed during the office visit and provided to the patient: - Glaucoma screening - Lipid panel Anay Schuler MD Reason for Visit Patient presents with: Medicare Wellness Exam Reinier Elizabeth is a 86 year old female who [...] W/RMVL OF TUMOR POLYP LESION SNARE TQ 4/28/09 HYSTEROSCOPY, DIAGNOSTIC (SEPARATE 08/21/1998 Hysteroscopy LIG/TRNSXJ FLP TUBE ABDL/VAG APPR UNI/BI 1975 Tubal ligation PAST SURGICAL HISTORY OF 09/27 CARDIAC CATH. PAST SURGICAL HISTORY OF 2018 Glaucoma - right eye left eye - [facility] . Dr Gao REPAIR FIRST ABDOMINAL WALL [...] 56 Resp 16 Ht 159 cm (5' 2.6) Wt 60.8 kg (134 lb) BMI 24.04 [...] - Continue current medications - TSH BLD Anay Schuler MD documented in this encounterMarymount Hospital03-28-2022 Miscellaneous Notes* Telephone Encounter - Luh George RN - 09/23/2021 4:23 PM EDT Pt called and is notified of providers message and instructions. Pt voices understanding. Pt will come do urine sample in the morning. Luh George RN * Telephone Encounter - Silvio Drake APRN.DARSHAN - 09/23/2021 4:15 PM EDT I placed orders for urinalysis and culture. I did go ahead and sent a prescription to her pharmacy for macrobid one pill twice a day. I would prefer to have a urine sample prior to starting this if possible. Thank you Silvio Drake APRN.BILLING AND ACCOUNTING STAFF ASSISTANT * Telephone Encounter - Luh George RN - 09/23/2021 10:39 AM EDT [...] Please call and advise. documented in this encounterMarymount Hospital03-30-2021 History of Present illness Narrative* Wendy Solomon (Tech), Tech - 09/25/2020 2:10 PM EDT Radiology Service Progress Note PATIENT NAME: Reinier Elizabeth DATE OF SERVICE: September 25, 2020 TIME: 2:08 PM PATIENT IDENTITY VERIFICATION COMPLETED USING TWO (2) IDENTIFIERS: Name and Date of confirmedby patient verbally. FALL SCREENING: Has the patient had 2 falls in the last year or 1 fall with injury or currently using an Ambulatory Assistive Device (Walker, Cane, Wheelchair, Crutches, etc.)? No PATIENT GENDER DATA: Female. status: : No status: NO. PATIENT RELEVANT IMPLANT DATA REVIEWED: Not Applicable RADIOLOGY DEPARTMENT: General X-ray: Exam(s) Completed: Spine X-Ray(s): Thoracic PERIPHERAL IV DATA: Not applicable SIGNED BY: Enrique Hammonds September 25, 2020 2:08 PM documented in this encounterMarymount Hospital06-18-2013 History of Past illness Narrative* Problem [...] of this encounter (statuses as of 09/23/2021) [facility] Narrative* Problem [...] of this encounter (statuses as of 12/10/2021) [facility] Narrative* Problem [...] of this encounter (statuses as of 12/25/2021) [facility] Narrative* Problem [...] of this encounter (statuses as of 01/16/2022) [facility] Narrative* Problem [...] of this encounter (statuses as of 01/18/2022) [facility] Narrative* Problem [...] of this encounter (statuses as of 01/25/2022) [facility] Narrative* Problem [...] of this encounter (statuses as of 02/21/2022) [facility] Narrative* Problem [...] of this encounter (statuses as of 03/10/2022) [facility] Narrative* Problem [...] of this encounter (statuses as of 03/12/2022) [facility] Narrative* Problem [...] of this encounter (statuses as of 03/14/2022) [facility] Narrative* Problem [...] of this encounter (statuses as of 03/20/2022) [facility] Narrative* Problem [...] of this encounter (statuses as of 03/21/2022) [facility] Narrative* Problem [...] of this encounter (statuses as of 04/02/2022) [facility] Narrative* Problem [...] of this encounter (statuses as of 04/02/2022) [facility] of Past illness Narrative* Problem [...] of this encounter (statuses as of 04/02/2022) [facility] Narrative* Problem [...] of this encounter (statuses as of 04/04/2022) [facility] Narrative* Problem [...] of this encounter (statuses as of 04/10/2022) [facility] Narrative* Problem [...] of this encounter (statuses as of 04/10/2022) [facility] Narrative* Problem [...] of this encounter (statuses as of 04/11/2022) [facility] Narrative* Problem Noted Date Resolved Date Incisional hernia 12/14/2012 08/06/2016 Urgency of urination 02/20/2009 06/14/2020 Urge incontinence 02/20/2009 08/06/2016 Female stress incontinence 02/20/200908/06 Nocturia 02/20/2009 08/06/2016 Symptomatic menopausal or female climacteric sta jenine 02/20/2009 08/06/2016 Postmenopausal atrophic vaginitis 02/20/2009 06/14/2020 Disorder of bone and cartilage, unspecified 01/2803/24/2012 Hypopotassemia 01/06/2008 08/06/2016 Osteoporosis, unspecified 2009 HYPERLIPIDEMIA NEC/NOS 6 OVERWEIGHT 09/25/2015 Internal hemorrhoids without mention of complica tion 08/06/2016 documented as of this encounter (statuses as of 04/14/2022) [facility]* Problem [...] of this encounter (statuses as of 04/21/2022) [facility] N[facility]ative* Problem [...] of this encounter (statuses as of 05/07/2022) [facility] N[facility]* Problem [...] of this encounter (statuses as of 06/13/2022) [facility] N[facility]ative* Problem [...] of this encounter (statuses as of 07/03/2022) [facility] N[facility]ative* Problem [...] of this encounter (statuses as of 07/03/2022) [facility] N[facility]ative* Problem [...] of this encounter (statuses as of 08/05/2022) [facility] N[facility]ative* Problem [...] of this encounter (statuses as of 09/10/2022) [facility] N[facility]ative* Problem [...] of this encounter (statuses as of 10/09/2022) [facility] N[facility]ative* Problem [...] of this encounter (statuses as of 10/11/2022) [facility] N[facility]ative* Problem [...] of this encounter (statuses as of 12/17/2022) [facility] N[facility]ative* Problem [...] of this encounter (statuses as of 01/08/2023) [facility]irav Cain [facility] Note Date/Time October 13, 2024 10: 38am [facility] Medical Records Department [address] [place] [address] Instructions for Home/Discharge Instructions 10/13/24 1034 MR#: [id number] Acct: [id number] Name: REINIER ELIZABETH Rep #:[id number] : [id number] 88 From: Nirav ellis MD PCP: Dr. Anay Schuler MD Status:ADM I N Discharge Instructions Diet Discharge Diet: Low fat / Low cholesterol DC O2, CPAP, BIPAP needs Home O2 Discharge instructions: No Dressing / Incision Discharge Activity: Return to Normal Activity Dressing / Incision Call your doctor if you observe: Fever of 101 or Higher, Shortness of breath, Dizziness, Fainting spells, Swelling in the ankles, Chest pain and Increased palpitations (irregular heartbeat) Follow Up Care Test Results: Test results from this visit will be discussed in further detail at your follow- up appointment, if applicable. Discharge Plan Admission Admit Date/Time: 10/11/24 14:08 Attending Provider: Nirav Cain Primary Care Provider: Anay Schuler Consulting Providers: Jake Kingston; Inocencia Long Discharge Orders/Prescriptions Prescriptions: Continued levothyroxine 25 mcg tablet 25 mcg PO DAILY brimonidine 0.15 % drops 1 drp ophthalmic (eye) BID Rx Instructions: right eye omeprazole 40 mg capsule,delayed release(DR/EC) 20 mg PO DAILY Prolia 60 mg/mL syringe 60 mg subcut [id number] Patient Comments: STARTS END UP SEPTEMBER. mecobalamin (vitamin B12) 1,000 mcg tablet,chewable 1,000 mcg PO DAILY cholecalciferol (vitamin D3) 50 mcg (2,000 unit) capsule 50 mcg PO BID latanoprost 1 DROP bottle 1 drp ophthalmic (eye) BID Patient Comments: EYE DROP Rx Instructions: BOTH EYES atorvastatin 20 MG tablet 20 mg PO QODAY Patient Comments: CHOLESTEROL timolol maleate 1 DROP drops 1 drp RIGHT EYE BID Patient Comments: EYE DROPS potassium chloride 10 mEq capsule, extended release 20 meq PO DAILY Rx Instructions: take 2 capsules by mouth once daily Gemtesa 75 mg tablet 75 mg PO DAILY losartan 50 mg tablet 50 mg PO BID Qty: 180 4RF Xarelto 15 mg tablet 15 mg PO DINNER Qty: 30 11RF Rx Instructions: must administer with evening meal carvedilol 12.5 mg tablet 12.5 mg PO BID Qty: 180 3RF Rx Instructions: must administer with a meal/food hydralazine 50 mg tablet 50 mg PO TID Qty: 270 3RF Changed furosemide 20 mg tablet 20 mg PO DAILY 30 Days Qty: 0 0RF Referrals / Follow Up: Anay Schuler MD [Primary Care Provider] - Within 1 Week Faustina Hernandez PA [Med Staff - Adv Practice Prof] - Within 2 Weeks Disposition Disposition (needs filled in before D/C Order can be placed): Home, Self Care 10/13/24 1038<Electronically signed by Nirav Cain MD>Nirav Cain MD CC: Dr. Inocencia Long MD; Dr. Anay Schuler MD; Dr. Jake Kingston MD ~ Signed [facility] Work Phone: Evaluation note* Diagnosis Encounter for Medicare annual wellness exam- Primary Routine general medical examination at a health care facility Mixed hyperlipidemia Essential hypertension Unspecified essential hypertension Hypothyroidism, unspecified type [facility] Diagnosis Hypertensive kidney disease with stage 3b chronic kidney disease (HCC)- Primary documented [facility]* Diagnosis History of osteoporosis- Primary 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 documented in this encounter [facility] note* Diagnosis Anemia, unspecified type- Primary Positive fecal occult blood test Nonspecific abnormal finding in stool contents [facility] Diagnosis Onset Date Resolution Status Anemia acute Positive occult stool blood test acute [facility] Work Phone: Evaluation note* Diagnosis Onset Date Resolution Status Anemia acute Positive occult stool blood test acute Atrial fibrillation, new onset acute Essential hypertension acute Non-ST elevated myocardial infarction acute HLD (hyperlipidemia) chronic Chest pain resolved [facility] Work Phone: Evaluation note* Diagnosis Sweating profusely- Primary Generalized hyperhidrosis Essential hypertension Unspecified essential hypertension Hypotension, unspecified hypotension type Chest pain, unspecified type Diarrhea, unspecified type [facility] Diagnosis Onset Date Resolution Status Anemia acute Positive occult stool blood test acute Anemia acute Atrial fibrillation, new onset acute Elevated troponin acute Essential hypertension acute Non-ST elevated myocardial infarction acute HLD (hyperlipidemia) chronic Chest pain resolved [facility] Work Phone: Evaluation note* Diagnosis Essential hypertension- Primary Unspecified essential hypertension Hypothyroidism, unspecified type Persistent atrial fibrillation (HCC) Atrial fibrillation Other fatigue [facility]* Diagnosis Nausea Nausea alone [facility]* Diagnosis Acute cough- Primary Nausea Nausea alone Diarrhea, unspecified type Fatigue, unspecified type Anemia, unspecified type documented [facility]* Diagnosis Onset Date Resolution Status Positive occult stool blood test acute Atrial fibrillation, new onset acute Essential hypertension chron ic HLD (hyperlipidemia) chronic Chest pain resolved Elevated troponin resolved Non-ST elevated myocardial infarction resolved Atrial fibrillation, new onset acute Dyspnea on exertion acute Essential hypertension chron ic HLD (hyperlipidemia) chronic Syncope chronic [facility] Work Phone: Evaluation note* Diagnosis Diarrhea, unspecified type- Primary [facility]* Diagnosis Acute cough- Primary Hypokalemia Hypopotassemia Shortness of breath Nausea Nausea alone Edema of both lower extremities [facility]* Diagnosis Congestive heart failure, unspecified HF chronicity, unspecified heart failure type (HCC)- Primary Essential hypertension Unspecified essential hypertension Mixed hyperlipidemia Pedal edema Edema Acute cough Hypokalemia Hypopotassemia Hypothyroidism, unspecified type [facility]- Primary [facility]* Diagnosis Hypotension, unspecified hypotension type- Primary GERI (acute kidney injury) (HCC) Acute kidney failure, unspecified [facility]* Diagnosis Anemia, unspecified type- Primary [facility]* Diagnosis Pleural effusion- Primary Unspecified pleural effusion Hypothyroidism, unspecified type Atelectasis Pulmonary collapse History of recent pneumonia Need for influenza vaccination Need for prophylactic vaccination and inoculation against influenza Anemia, unspecified type Congestive heart failure, unspecified HF chronicity, unspecified heart failure type (HCC) Stage 3b chronic kidney disease (HCC) [facility]* Diagnosis Onset Date Resolution Status Positive occult stool blood test acute Atrial fibrillation, new onset acute Essential hypertension chron ic HLD (hyperlipidemia) chronic Chest pain resolved Elevated troponin resolved Non-ST elevated myocardial infarction resolved Atrial fibrillation, new onset acute Dyspnea on exertion acute Essential hypertension chron ic HLD (hyperlipidemia) chronic Syncope chronic Atrial fibrillation, new onset acute Dyspnea on exertion acute Essential hypertension chron ic HLD (hyperlipidemia) chronic Syncope chronic [facility] Work Phone: Evaluation note* Diagnosis Onset Date Resolution Status Positive occult stool blood test acute Atrial fibrillation, new onset acute Essential hypertension chron ic HLD (hyperlipidemia) chronic Chest pain resolved Elevated troponin resolved Non-ST elevated myocardial infarction resolved Atrial fibrillation, new onset acute Dyspnea on exertion acute Essential hypertension chron ic HLD (hyperlipidemia) chronic Syncope chronic Atrial fibrillation, new onset acute Dyspnea on exertion acute Essential hypertension chron ic HLD (hyperlipidemia) chronic Syncope chronic GI bleed acute Atrial fibrillation, new onset acute Bilateral lower extremity edema acute Dyspnea on exertion acute Essential hypertension chron ic HLD (hyperlipidemia) chronic Syncope chronic Acidosis, lactic acute Acute hypotension acute Atrial fibrillation with rapid ventricular response acute Lymphedema of both lower extremities acute [facility] Work Phone: Evaluation note* Diagnosis Onset Date Resolution Status Positive occult stool blood test acute Atrial fibrillation, new onset acute Essential hypertension chron ic HLD (hyperlipidemia) chronic Chest pain resolved Elevated troponin resolved Non-ST elevated myocardial infarction resolved Atrial fibrillation, new onset acute Dyspnea on exertion acute Essential hypertension chron ic HLD (hyperlipidemia) chronic Syncope chronic Atrial fibrillation, new onset acute Dyspnea on exertion acute Essential hypertension chron ic HLD (hyperlipidemia) chronic Syncope chronic GI bleed acute Atrial fibrillation, new onset acute Bilateral lower extremity edema acute Dyspnea on exertion acute Essential hypertension chron ic HLD (hyperlipidemia) chronic Syncope chronic Abnormal cardiac enzyme level acute Acidosis, lactic acute Acute heart failure with pre served ejection fraction (HFpEF) acute Acute hypotension acute Atrial fibrillation with rapid ventricular response acute Bilateral lower extremity edema acute Dyspnea on exertion acute Elevated liver enzymes acute Elevated troponin acute GI bleed acute Hypokalemia acute Lymphedema of both lower extremities acute Palpitations acute Renal insufficiency acute Stage 3b chronic kidney disease (CKD) acute Acute kidney injury superimposed on CKD chronic Essential hypertension chron ic HLD (hyperlipidemia) chronic [facility] Work Phone: Evaluation note* Diagnosis Pulmonary hypertension (HCC)- Primary Other chronic pulmonary heart diseases Pedal edema Edema Permanent atrial fibrillation (HCC) Atrial fibrillation Mixed hyperlipidemia Hypertensive kidney disease with stage 3b chronic kidney disease (HCC) Essential hypertension Unspecified essential hypertension Stage 3a chronic kidney disease (HCC) [facility] Diagnosis Onset Date Resolution Status Positive occult stool blood test acute Atrial fibrillation, new onset acute Chest pain resolved Elevated troponin resolved Non-ST elevated myocardial infarction resolved Atrial fibrillation, new onset acute Syncope chronic Atrial fibrillation, new onset acute Syncope chronic GI bleed resolved Atrial fibrillation, new onset acute Syncope chronic Abnormal cardiac enzyme level resolved Acidosis, lactic resolved Acute heart failure with pre served ejection fraction (HFpEF) resolved Acute hypotension resolved Acute kidney injury superimposed on CKD resolved Atrial fibrillation with rapid ventricular response resolved Elevated troponin resolved GI bleed resolved Hypokalemia resolved Renal insufficiency resolved [facility] Work Phone: Evaluation note* Diagnosis Onset Date Resolution Status Positive occult stool blood test acute Atrial fibrillation, new onset acute Chest pain resolved Elevated troponin resolved Non-ST elevated myocardial infarction resolved Atrial fibrillation, new onset acute Syncope chronic Atrial fibrillation, new onset acute Syncope chronic GI bleed resolved Atrial fibrillation, new onset acute Syncope chronic Abnormal cardiac enzyme level resolved Acidosis, lactic resolved Acute heart failure with pre served ejection fraction (HFpEF) resolved Acute hypotension resolved Acute kidney injury superimposed on CKD resolved Atrial fibrillation with rapid ventricular response resolved Elevated troponin resolved GI bleed resolved Hypokalemia resolved Renal insufficiency resolved Atrial fibrillation, new onset acute Syncope chronic [facility] Work Phone: Evaluation note* Diagnosis Onset Date Resolution Status Atrial fibrillation, new onset acute Syncope chronic Atrial fibrillation, new onset acute Syncope chronic GI bleed resolved Atrial fibrillation, new onset acute Syncope chronic Abnormal cardiac enzyme level resolved Acidosis, lactic resolved Acute heart failure with pre served ejection fraction (HFpEF) resolved Acute hypotension resolved Acute kidney injury superimposed on CKD resolved Atrial fibrillation with rapid ventricular response resolved Elevated troponin resolved GI bleed resolved Hypokalemia resolved Renal insufficiency resolved Atrial fibrillation, new onset acute Syncope chronic CHF (congestive heart failure) acute HLD (hyperlipidemia) acute Essential hypertension [facility] Work Phone: Evaluation note* Diagnosis Onset Date Resolution Status Atrial fibrillation, new onset acute Syncope chronic GI bleed resolved Atrial fibrillation, new onset acute Syncope chronic Abnormal cardiac enzyme level resolved Acidosis, lactic resolved Acute heart failure with pre served ejection fraction (HFpEF) resolved Acute hypotension resolved Acute kidney injury superimposed on CKD resolved Atrial fibrillation with rapid ventricular response resolved Elevated troponin resolved GI bleed resolved Hypokalemia resolved Renal insufficiency resolved Atrial fibrillation, new onset acute Syncope chronic CHF (congestive heart failure) acute HLD (hyperlipidemia) acute Essential hypertension [facility] Work Phone: Evaluation note* Diagnosis Anemia, unspecified type- Primary Essential hypertension Unspecified essential hypertension Permanent atrial fibrillation (HCC) Atrial fibrillation Hypothyroidism, unspecified type Fatigue, unspecified type [facility]* Diagnosis Onset Date Resolution Status CHF (congestive heart failure) acute HLD (hyperlipidemia) acute Essential hypertension chron ic CHF (congestive heart failure) acute HLD (hyperlipidemia) acute Essential hypertension [facility] Work Phone: Evaluation note* Diagnosis Onset Date Resolution Status CHF (congestive heart failure) acute HLD (hyperlipidemia) acute Essential hypertension chron ic Anemia acute Positive occult stool blood test acute Upper GI bleed resolved [facility] Work Phone: Evaluation note* Diagnosis Essential hypertension- Primary Unspecified essential hypertension 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, subsequent encounter [facility]* Diagnosis Permanent atrial fibrillation (HCC)- Primary Atrial fibrillation At risk for stroke Other specified personal history presenting hazards to health Anticoagulant long-term use Long-term (current) use of anticoagulants At risk for bleeding associated with anticoagulants History of GI bleed Personal history of other diseases of digestive system [facility]* Diagnosis Age related osteoporosis, unspecified pathological fracture presence- Primary [facility]* Diagnosis Nausea Nausea alone documented [facility]* Diagnosis Hypertensive kidney disease with stage 3b chronic kidney disease (HCC)- Primary Mixed hyperlipidemia Osteoporosis without current pathological fracture, unspecified osteoporosis type Mid back pain Backache, unspecified Hypothyroidism, unspecified type Elevated hemoglobin A1c Other abnormal blood chemistry Need for influenza vaccination Need for prophylactic vaccination and inoculation against influenza documented in this encounter [facility] note* Diagnosis Hypertensive kidney disease with stage 3b chronic kidney disease (HCC)- Primary [facility]* Diagnosis 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, subsequent encounter [facility]* Diagnosis Essential hypertension- Primary Unspecified essential hypertension [facility]* Diagnosis Hypertensive kidney disease with stage 3b chronic kidney disease (HCC) [facility]* Diagnosis Onset Date Resolution Status Osteoporosis chronic Anemia acute Back pain acute Elevated troponin acute Fall acute Foot pain, bilateral acute Hyperglycemia acute Hypoxia acute Syncope chronic Chronic kidney disease [facility] Work Phone: Evaluation note* Diagnosis Hypertensive kidney disease with stage 3b chronic kidney disease (HCC)- Primary Essential hypertension Unspecified essential hypertension Anemia, unspecified type documented in this encounter [facility] note* Diagnosis Onset Date Resolution Status Osteoporosis chronic Anemia acute Back pain acute Elevated troponin acute Fall acute Foot pain, bilateral acute Hyperglycemia acute Hypoxia acute Chronic kidney disease [facility] Syncope resolved CHF (congestive heart failure) acute HLD (hyperlipidemia) acute Essential hypertension [facility] Work Phone: Evaluation note* Diagnosis Perineal rash in female- Primary Rash and other nonspecific skin eruption [facility]* Diagnosis Onset Date Resolution Status Anemia acute Back pain acute Elevated troponin acute Fall acute Foot pain, bilateral acute Hyperglycemia acute Hypoxia acute Chronic kidney disease [facility] Syncope resolved CHF (congestive heart failure) acute HLD (hyperlipidemia) acute Essential hypertension [facility] Osteoporosis chronic CHF (congestive heart failure) acute HLD (hyperlipidemia) acute Essential hypertension [facility] Work Phone: Evaluation note* Diagnosis Mixed incontinence- Primary Mixed 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) Anemia, unspecified type Essential hypertension Unspecified essential hypertension Need for vaccination Need for prophylactic vaccination and inoculation against unspecified single disease Pulmonary hypertension (HCC) Other chronic pulmonary heart diseases Permanent atrial fibrillation (HCC) Atrial fibrillation Bilateral hearing loss, unspecified hearing loss type [facility] HYPERTENSION NOS- Primary Unspecified essential hypertension Vitamin D deficiency Unspecified vitamin D deficiency Osteopenia Disorder of bone and cartilage, unspecified HYPERLIPIDEMIA NEC/NOS Other and unspecified hyperlipidemia HYPERGLYCEMIA Other abnormal blood chemistry Esophageal reflux Pain of right heel- Primary Pain in limb HYPERGLYCEMIA Other abnormal blood chemistry Essential hypertension Unspecified essential hypertension Pedal edema Edema Osteopenia of multiple sites Vitamin D deficiency Unspecified vitamin D deficiency Unexplained night sweats- Primary 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, subsequent encounter Mixed hyperlipidemia Osteoporosis without current pathological fracture, unspecified osteoporosis type Mid back pain Backache, unspecified [facility] Diagnosis HYPERTENSION NOS- Primary Unspecified essential hypertension Vitamin D deficiency Unspecified vitamin D deficiency Osteopenia Disorder of bone and cartilage, unspecified HYPERLIPIDEMIA NEC/NOS Other and unspecified hyperlipidemia HYPERGLYCEMIA Other abnormal blood chemistry Esophageal reflux Pain of right heel- Primary Pain in limb HYPERGLYCEMIA Other abnormal blood chemistry Essential hypertension Unspecified essential hypertension Pedal edema Edema Osteopenia of multiple sites Vitamin D deficiency Unspecified vitamin D deficiency Unexplained night sweats- Primary 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, subsequent encounter Mixed hyperlipidemia Hypothyroidism, unspecified type [facility] Diagnosis HYPERTENSION NOS- Primary Unspecified essential hypertension Vitamin D deficiency Unspecified vitamin D deficiency Osteopenia Disorder of bone and cartilage, unspecified HYPERLIPIDEMIA NEC/NOS Other and unspecified hyperlipidemia HYPERGLYCEMIA Other abnormal blood chemistry Esophageal reflux Pain of right heel- Primary Pain in limb HYPERGLYCEMIA Other abnormal blood chemistry Essential hypertension Unspecified essential hypertension Pedal edema Edema Osteopenia of multiple sites Vitamin D deficiency Unspecified vitamin D deficiency Unexplained night sweats- Primary 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, subsequent encounter Mixed hyperlipidemia Acute [facility] Diagnosis HYPERTENSION NOS- Primary Unspecified essential hypertension Vitamin D deficiency Unspecified vitamin D deficiency Osteopenia Disorder of bone and cartilage, unspecified HYPERLIPIDEMIA NEC/NOS Other and unspecified hyperlipidemia HYPERGLYCEMIA Other abnormal blood chemistry Esophageal reflux Pain of right heel- Primary Pain in limb HYPERGLYCEMIA Other abnormal blood chemistry Essential hypertension Unspecified essential hypertension Pedal edema Edema Osteopenia of multiple sites Vitamin D deficiency Unspecified vitamin D deficiency Unexplained night sweats- Primary 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, subsequent encounter Mixed hyperlipidemia Acute cough Shortness of breath [facility] Diagnosis HYPERTENSION NOS- Primary Unspecified essential hypertension Vitamin D deficiency Unspecified vitamin D deficiency Osteopenia Disorder of bone and cartilage, unspecified HYPERLIPIDEMIA NEC/NOS Other and unspecified hyperlipidemia HYPERGLYCEMIA Other abnormal blood chemistry Esophageal reflux Pain of right heel- Primary Pain in limb HYPERGLYCEMIA Other abnormal blood chemistry Essential hypertension Unspecified essential hypertension Pedal edema Edema Osteopenia of multiple sites Vitamin D deficiency Unspecified vitamin D deficiency Unexplained night sweats- Primary 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, subsequent encounter Mixed hyperlipidemia Acute cough Fatigue, unspecified type [facility] Diagnosis HYPERTENSION NOS- Primary Unspecified essential hypertension Vitamin D deficiency Unspecified vitamin D deficiency Osteopenia Disorder of bone and cartilage, unspecified HYPERLIPIDEMIA NEC/NOS Other and unspecified hyperlipidemia HYPERGLYCEMIA Other abnormal blood chemistry Esophageal reflux Pain of right heel- Primary Pain in limb HYPERGLYCEMIA Other abnormal blood chemistry Essential hypertension Unspecified essential hypertension Pedal edema Edema Osteopenia of multiple sites Vitamin D deficiency Unspecified vitamin D deficiency Unexplained night sweats- Primary 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, subsequent encounter Mixed hyperlipidemia Mid back pain Backache, unspecified [facility] Diagnosis HYPERTENSION NOS- Primary Unspecified essential hypertension Vitamin D deficiency Unspecified vitamin D deficiency Osteopenia Disorder of bone and cartilage, unspecified HYPERLIPIDEMIA NEC/NOS Other and unspecified hyperlipidemia HYPERGLYCEMIA Other abnormal blood chemistry Esophageal reflux Pain of right heel- Primary Pain in limb HYPERGLYCEMIA Other abnormal blood chemistry Essential hypertension Unspecified essential hypertension Pedal edema Edema Osteopenia of multiple sites Vitamin D deficiency Unspecified vitamin D deficiency Unexplained night sweats- Primary 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, subsequent encounter Mixed hyperlipidemia Mixed hyperlipidemia [facility] Diagnosis HYPERTENSION NOS- Primary Unspecified essential hypertension Vitamin D deficiency Unspecified vitamin D deficiency Osteopenia Disorder of bone and cartilage, unspecified HYPERLIPIDEMIA NEC/NOS Other and unspecified hyperlipidemia HYPERGLYCEMIA Other abnormal blood chemistry Esophageal reflux Pain of right heel- Primary Pain in limb HYPERGLYCEMIA Other abnormal blood chemistry Essential hypertension Unspecified essential hypertension Pedal edema Edema Osteopenia of multiple sites Vitamin D deficiency Unspecified vitamin D deficiency Unexplained night sweats- Primary 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, subsequent encounter Mixed hyperlipidemia Hypertensive kidney disease with stage 3b chronic kidney disease (HCC) [facility] Diagnosis HYPERTENSION NOS- Primary Unspecified essential hypertension Vitamin D deficiency Unspecified vitamin D deficiency Osteopenia Disorder of bone and cartilage, unspecified HYPERLIPIDEMIA NEC/NOS Other and unspecified hyperlipidemia HYPERGLYCEMIA Other abnormal blood chemistry Esophageal reflux Pain of right heel- Primary Pain in limb HYPERGLYCEMIA Other abnormal blood chemistry Essential hypertension Unspecified essential hypertension Pedal edema Edema Osteopenia of multiple sites Vitamin D deficiency Unspecified vitamin D deficiency Unexplained night sweats- Primary 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, subsequent encounter Mixed hyperlipidemia Stage 3b chronic kidney disease (HCC)- Primary Hearing loss, unspecified hearing loss type, unspecified laterality Uncontrolled hypertension Unspecified essential hypertension Anemia, unspecified type Vitamin B12 deficiency Other B-complex deficiencies Vitamin D deficiency Unspecified vitamin D deficiency Hypothyroidism, unspecified type [facility] Diagnosis HYPERTENSION NOS- Primary Unspecified essential hypertension Vitamin D deficiency Unspecified vitamin D deficiency Osteopenia Disorder of bone and cartilage, unspecified HYPERLIPIDEMIA NEC/NOS Other and unspecified hyperlipidemia HYPERGLYCEMIA Other abnormal blood chemistry Esophageal reflux Pain of right heel- Primary Pain in limb HYPERGLYCEMIA Other abnormal blood chemistry Essential hypertension Unspecified essential hypertension Pedal edema Edema Osteopenia of multiple sites Vitamin D deficiency Unspecified vitamin D deficiency Unexplained night sweats- Primary 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, subsequent encounter Mixed hyperlipidemia Dysuria- Primary [facility] Diagnosis HYPERTENSION NOS- Primary Unspecified essential hypertension Vitamin D deficiency Unspecified vitamin D deficiency Osteopenia Disorder of bone and cartilage, unspecified HYPERLIPIDEMIA NEC/NOS Other and unspecified hyperlipidemia HYPERGLYCEMIA Other abnormal blood chemistry Esophageal reflux Pain of right heel- Primary Pain in limb HYPERGLYCEMIA Other abnormal blood chemistry Essential hypertension Unspecified essential hypertension Pedal edema Edema Osteopenia of multiple sites Vitamin D deficiency Unspecified vitamin D deficiency Unexplained night sweats- Primary 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, subsequent encounter Mixed hyperlipidemia Urinary frequency- Primary [facility] Diagnosis HYPERTENSION NOS- Primary Unspecified essential hypertension Vitamin D deficiency Unspecified vitamin D deficiency Osteopenia Disorder of bone and cartilage, unspecified HYPERLIPIDEMIA NEC/NOS Other and unspecified hyperlipidemia HYPERGLYCEMIA Other abnormal blood chemistry Esophageal reflux Pain of right heel- Primary Pain in limb HYPERGLYCEMIA Other abnormal blood chemistry Essential hypertension Unspecified essential hypertension Pedal edema Edema Osteopenia of multiple sites Vitamin D deficiency Unspecified vitamin D deficiency Unexplained night sweats- Primary 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, subsequent encounter Mixed hyperlipidemia Exercise-induced leg fatigue- Primary Other musculoskeletal symptoms referable to limbs Stage 3a chronic kidney disease (HCC) Gastroesophageal reflux disease, unspecified whether esophagitis present Mixed hyperlipidemia Anemia, unspecified type Hypothyroidism, unspecified type [facility] Diagnosis HYPERTENSION NOS- Primary Unspecified essential hypertension Vitamin D deficiency Unspecified vitamin D deficiency Osteopenia Disorder of bone and cartilage, unspecified HYPERLIPIDEMIA NEC/NOS Other and unspecified hyperlipidemia HYPERGLYCEMIA Other abnormal blood chemistry Esophageal reflux Pain of right heel- Primary Pain in limb HYPERGLYCEMIA Other abnormal blood chemistry Essential hypertension Unspecified essential hypertension Pedal edema Edema Osteopenia of multiple sites Vitamin D deficiency Unspecified vitamin D deficiency Unexplained night sweats- Primary 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, subsequent encounter Mixed hyperlipidemia Accelerated hypertension- Primary Essential hypertension, malignant Uncontrolled hypertension Unspecified essential hypertension Paroxysmal atrial fibrillation (HCC) Atrial fibrillation [facility] Diagnosis HYPERTENSION NOS- Primary Unspecified essential hypertension Vitamin D deficiency Unspecified vitamin D deficiency Osteopenia Disorder of bone and cartilage, unspecified HYPERLIPIDEMIA NEC/NOS Other and unspecified hyperlipidemia HYPERGLYCEMIA Other abnormal blood chemistry Esophageal reflux Pain of right heel- Primary Pain in limb HYPERGLYCEMIA Other abnormal blood chemistry Essential hypertension Unspecified essential hypertension Pedal edema Edema Osteopenia of multiple sites Vitamin D deficiency Unspecified vitamin D deficiency Unexplained night sweats- Primary 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, subsequent encounter Mixed hyperlipidemia Frequency of urination- Primary Urinary frequency Dysuria Leukocytes in urine Other cells and casts in urine [facility] Diagnosis HYPERTENSION NOS- Primary Unspecified essential hypertension Vitamin D deficiency Unspecified vitamin D deficiency Osteopenia Disorder of bone and cartilage, unspecified HYPERLIPIDEMIA NEC/NOS Other and unspecified hyperlipidemia HYPERGLYCEMIA Other abnormal blood chemistry Esophageal reflux Pain of right heel- Primary Pain in limb HYPERGLYCEMIA Other abnormal blood chemistry Essential hypertension Unspecified essential hypertension Pedal edema Edema Osteopenia of multiple sites Vitamin D deficiency Unspecified vitamin D deficiency Unexplained night sweats- Primary 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, subsequent encounter Mixed hyperlipidemia Dysuria- Primary [facility] Diagnosis HYPERTENSION NOS- Primary Unspecified essential hypertension Vitamin D deficiency Unspecified vitamin D deficiency Osteopenia Disorder of bone and cartilage, unspecified HYPERLIPIDEMIA NEC/NOS Other and unspecified hyperlipidemia HYPERGLYCEMIA Other abnormal blood chemistry Esophageal reflux Pain of right heel- Primary Pain in limb HYPERGLYCEMIA Other abnormal blood chemistry Essential hypertension Unspecified essential hypertension Pedal edema Edema Osteopenia of multiple sites Vitamin D deficiency Unspecified vitamin D deficiency Unexplained night sweats- Primary 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, subsequent encounter Mixed hyperlipidemia Nausea- Primary Nausea alone Other fatigue Ecchymosis of left eye, initial encounter Paroxysmal atrial fibrillation (HCC) Atrial [facility] Diagnosis HYPERTENSION NOS- Primary Unspecified essential hypertension Vitamin D deficiency Unspecified vitamin D deficiency Osteopenia Disorder of bone and cartilage, unspecified HYPERLIPIDEMIA NEC/NOS Other and unspecified hyperlipidemia HYPERGLYCEMIA Other abnormal blood chemistry Esophageal reflux Pain of right heel- Primary Pain in limb HYPERGLYCEMIA Other abnormal blood chemistry Essential hypertension Unspecified essential hypertension Pedal edema Edema Osteopenia of multiple sites Vitamin D deficiency Unspecified vitamin D deficiency Unexplained night sweats- Primary 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, subsequent encounter Mixed hyperlipidemia Permanent atrial fibrillation (HCC)- Primary Atrial fibrillation Acute on chronic combined systolic and diastolic congestive heart failure (HCC) Acute on chronic combined systolic and diastolic heart failure Essential (primary) hypertension Unspecified essential hypertension Diarrhea, unspecified type 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 Long-term (current) use of anticoagulants [facility] Diagnosis HYPERTENSION NOS- Primary Unspecified essential hypertension Vitamin D deficiency Unspecified vitamin D deficiency Osteopenia Disorder of bone and cartilage, unspecified HYPERLIPIDEMIA NEC/NOS Other and unspecified hyperlipidemia HYPERGLYCEMIA Other abnormal blood chemistry Esophageal reflux Pain of right heel- Primary Pain in limb HYPERGLYCEMIA Other abnormal blood chemistry Essential hypertension Unspecified essential hypertension Pedal edema Edema Osteopenia of multiple sites Vitamin D deficiency Unspecified vitamin D deficiency Unexplained night sweats- Primary 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, subsequent encounter Mixed hyperlipidemia Anemia, unspecified type- Primary Hypertensive kidney disease with stage 3b chronic kidney disease (HCC) Vitamin B12 deficiency Other B-complex deficiencies [facility] Diagnosis HYPERTENSION NOS- Primary Unspecified essential hypertension Vitamin D deficiency Unspecified vitamin D deficiency Osteopenia Disorder of bone and cartilage, unspecified HYPERLIPIDEMIA NEC/NOS Other and unspecified hyperlipidemia HYPERGLYCEMIA Other abnormal blood chemistry Esophageal reflux Pain of right heel- Primary Pain in limb HYPERGLYCEMIA Other abnormal blood chemistry Essential hypertension Unspecified essential hypertension Pedal edema Edema Osteopenia of multiple sites Vitamin D deficiency Unspecified vitamin D deficiency Unexplained night sweats- Primary 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, subsequent encounter Mixed hyperlipidemia Hypothyroidism, unspecified type [facility] Diagnosis HYPERTENSION NOS- Primary Unspecified essential hypertension Vitamin D deficiency Unspecified vitamin D deficiency Osteopenia Disorder of bone and cartilage, unspecified HYPERLIPIDEMIA NEC/NOS Other and unspecified hyperlipidemia HYPERGLYCEMIA Other abnormal blood chemistry Esophageal reflux Pain of right heel- Primary Pain in limb HYPERGLYCEMIA Other abnormal blood chemistry Essential hypertension Unspecified essential hypertension Pedal edema Edema Osteopenia of multiple sites Vitamin D deficiency Unspecified vitamin D deficiency Unexplained night sweats- Primary 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, subsequent encounter Mixed hyperlipidemia Acute cough Dyspnea, unspecified type Abnormal breath sounds Abnormal chest sounds [facility] Diagnosis HYPERTENSION NOS- Primary Unspecified essential hypertension Vitamin D deficiency Unspecified vitamin D deficiency Osteopenia Disorder of bone and cartilage, unspecified HYPERLIPIDEMIA NEC/NOS Other and unspecified hyperlipidemia HYPERGLYCEMIA Other abnormal blood chemistry Esophageal reflux Pain of right heel- Primary Pain in limb HYPERGLYCEMIA Other abnormal blood chemistry Essential hypertension Unspecified essential hypertension Pedal edema Edema Osteopenia of multiple sites Vitamin D deficiency Unspecified vitamin D deficiency Unexplained night sweats- Primary 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, subsequent encounter Mixed hyperlipidemia Acute cough- Primary Dyspnea, unspecified type Abnormal breath sounds Abnormal chest sounds Permanent atrial fibrillation (HCC) Atrial fibrillation Essential hypertension Unspecified essential hypertension Nausea Nausea alone Medication management Encounter for long-term (current) use of other medications [facility] Diagnosis HYPERTENSION NOS- Primary Unspecified essential hypertension Vitamin D deficiency Unspecified vitamin D deficiency Osteopenia Disorder of bone and cartilage, unspecified HYPERLIPIDEMIA NEC/NOS Other and unspecified hyperlipidemia HYPERGLYCEMIA Other abnormal blood chemistry Esophageal reflux Pain of right heel- Primary Pain in limb HYPERGLYCEMIA Other abnormal blood chemistry Essential hypertension Unspecified essential hypertension Pedal edema Edema Osteopenia of multiple sites Vitamin D deficiency Unspecified vitamin D deficiency Unexplained night sweats- Primary 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, subsequent encounter Mixed hyperlipidemia Acute cough- Primary Dyspnea, unspecified type Abnormal breath sounds Abnormal chest sounds Essential hypertension Unspecified essential hypertension Hypertensive kidney disease with stage 3b chronic kidney disease (HCC) Nausea Nausea alone [facility] Diagnosis HYPERTENSION NOS- Primary Unspecified essential hypertension Vitamin D deficiency Unspecified vitamin D deficiency Osteopenia Disorder of bone and cartilage, unspecified HYPERLIPIDEMIA NEC/NOS Other and unspecified hyperlipidemia HYPERGLYCEMIA Other abnormal blood chemistry Esophageal reflux Pain of right heel- Primary Pain in limb HYPERGLYCEMIA Other abnormal blood chemistry Essential hypertension Unspecified essential hypertension Pedal edema Edema Osteopenia of multiple sites Vitamin D deficiency Unspecified vitamin D deficiency Unexplained night sweats- Primary 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, subsequent encounter Mixed hyperlipidemia Hypertensive kidney disease with stage 3b chronic kidney disease (HCC) [facility] Diagnosis HYPERTENSION NOS- Primary Unspecified essential hypertension Vitamin D deficiency Unspecified vitamin D deficiency Osteopenia Disorder of bone and cartilage, unspecified HYPERLIPIDEMIA NEC/NOS Other and unspecified hyperlipidemia HYPERGLYCEMIA Other abnormal blood chemistry Esophageal reflux Pain of right heel- Primary Pain in limb HYPERGLYCEMIA Other abnormal blood chemistry Essential hypertension Unspecified essential hypertension Pedal edema Edema Osteopenia of multiple sites Vitamin D deficiency Unspecified vitamin D deficiency Unexplained night sweats- Primary 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 Drink enough fluids to urinate regularly throughout the day on days that you do not take the Lasix. Follow-up closely with your primary care doctor and [facility] for cardiology. Return to the emergency room if you develop worsening symptoms, difficulty breathing or fevers.[facility] Work Phone: Hospital Discharge instructions Additional Instructions Increase your carvedilol to 6.25 mg twice a day. 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 Continued your Xarelto. [facility] Work Phone: Reason for referral (narrative)* Diagnostic Procedure Only (Routine) - Closed Specialty Diagnoses / Procedures Referred By Contac t Referred To Contact XR IMAGING Diagnoses Osteoporosis without current pathological fracture, unspecified osteoporosis type Mid back pain Procedures XR THORACIC GENERAL 3V AP/LAT/SWIMMERS RADEX SPINE THORACIC 3 VIEWS Silvio Drake APRN.BILLING AND ACCOUNTING STAFF ASSISTANT [address] [place] [address] [place] [address] Referral ID Status Reason Start Date Expiration Date V isits Requested Visits Authorized [id number] Closed Auto-Generate d Referral 04/09/2023 05/08/2024 1 1 [facility] for referral (narrative)* Diagnostic Procedure Only (Routine) - Closed Specialty Diagnoses / Procedures Referred By Contac t Referred To Contact XR IMAGING Diagnoses Osteoporosis without current pathological fracture, unspecified osteoporosis type Mid back pain Procedures XR THORACIC GENERAL 3V AP/LAT/SWIMMERS RADEX SPINE THORACIC 3 VIEWS Silvio Drake APRN.BILLING AND ACCOUNTING STAFF ASSISTANT [address] [place] [address] [place] [address] Referral ID Status Reason Start Date Expiration Date V isits Requested Visits Authorized [id number] Closed Auto-Generate d Referral 04/09/2023 05/08/2024 1 1 [facility] for referral (narrative)* Outpatient Procedure (Routine) - Authorized Specialty Diagnoses / Procedures Referred By Contac t Referred To Contact [facility] [place] Diagnoses Exercise-induced leg fatigue Procedures PVR ANK PRESS W/EXC RIO VAS LAB NON-INVAS PHYSIOLOGIC STD EXTREMITY ART 2 LEVEL Anay Schuler MD [address] [place] [address] [facility] [place] [address] [place] [address] Referral ID Status Reason Start Date Expiration Date Visits Requested Visits Authorized [id number] Authorized Auto-Generat ed Referral 08/02/2024 08/02/2025 1 1 * Outpatient Procedure (Routine) - Authorized Specialty Diagnoses / Procedures Referred By Contac t Referred To Contact [facility] [place] Diagnoses Exercise-induced leg fatigue Procedures PVR ANK PRESS RIO VAS LAB NON-INVAS PHYSIOLOGIC STD EXTREMITY ART 2 LEVEL Anay Schuler MD [address] [place] [address] [facility] [place] [address] [place] [place] [address] Referral ID Status Reason Start Date Expiration Date Visits Requested Visits Authorized [id number] Authorized Auto-Generat ed Referral 08/02/2024 08/02/2025 1 1 [facility]No reason for referral information availableWOhioHealth [facility] Work Phone: Reason for visit Narrative* Diagnostic Procedure Only (Routine) - Closed Specialty Diagnoses / Procedures Referred By Contac t Referred To Contact XR IMAGING Diagnoses Osteoporosis without current pathological fracture, unspecified osteoporosis type Mid back pain Procedures XR THORACIC GENERAL 3V AP/LAT/SWIMMERS RADEX SPINE THORACIC 3 VIEWS Older, WALLACE McN.BILLING AND ACCOUNTING STAFF ASSISTANT [address] [place] [address] [place] [id number] Referral ID Status Reason Start Date Expiration Date V isits Requested Visits Authorized [id number] Closed Auto-Generate d Referral 04/09/2023 05/08/2024 1 1 [facility] Reason for Referral Specialty Diagnoses / Procedures Referred By Contac t Referred To Contact Gastroenterology Diagnoses Anemia, unspecified type Positive fecal occult blood test Procedures CONSULT TO GASTROENTEROLOGY OFFICE/OUTPATIENT [facility] MDM 60-74 MINUTES Older, Toshia, DIRECTOR TRANSLATION.BILLING AND ACCOUNTING STAFF ASSISTANT [address] [place] [address] Referral ID Status Reason Start Date Expiration Date Visits Requested Visits Authorized [id number] Authorized PCP Requested Referral 01/17/2022 01/17/2023 1 1 Specialty Diagnoses / Procedures Referred By Contac t Referred To Contact General Surgery Diagnoses Anemia, unspecified type Positive fecal occult blood test Procedures CONSULT TO GENERAL SURGERY OFFICE/OUTPATIENT NEW [facility] MDM 60-74 MINUTES Older, Toshia, DIRECTOR TRANSLATION.BILLING AND ACCOUNTING STAFF ASSISTANT [address] [place] [address] Referral ID Status Reason Start Date Expiration Date Visits Requested Visits Authorized [id number] Authorized PCP Requested Referral 01/15/2022 01/15/2023 1 1 Specialty Diagnoses / Procedures Referred By Contac t Referred To Contact Endocrinology Diagnoses Age related osteoporosis, unspecified pathological fracture presence Procedures CONSULT TO ENDOCRINOLOGY OFFICE/OUTPATIENT NEW HIGH MDM 60-74 MINUTES Older, LUANA Mc [address] [place] [address] Referral ID Status Reason Start Date Expiration Date Visits Requested Visits Authorized [id number] Authorized PCP Requested Referral 02/02/2023 02/02/2024 1 1 Specialty Diagnoses / Procedures Referred By Contac t Referred To Contact Diagnoses Bilateral hearing loss, unspecified hearing loss type Procedures HEARING TEST/AUDIOGRAM COMPRE AUDIOMETRY THRESHOLD EVAL Anay Ramos MD [address] [place] [address] [facility] [address] [place] [address] Referral ID Status Reason Start Date Expiration Date Visits Requested Visits Authorized [id number] New Request Auto-Generat ed Referral 01/11/2024 04/10/2024 1 1 Chief Complaint and Reason for Visit Chief Complaint BLOOD IN STOOL & ANE AGUILA EORDERS Reason for Visit Anemia Positive occult stool blood test Chief Complaint BLOOD IN STOOL & ANE AGUILA EORDERS NONSTEMI Reason for Visit Anemia Positive occult stool blood test Atrial fibrillation, new onset Essential hypertension Non-ST elevated myocardial infarction HLD (hyperlipidemia) Chest pain Chief Complaint BLOOD IN STOOL & ANE AGUILA EORDERS NONSTEMI NONSTEMI NONSTEMI NONSTEMI Reason for Visit Anemia Positive occult stool blood test Anemia Atrial fibrillation, new onset Elevated troponin Essential hypertension Non-ST elevated myocardial infarction HLD (hyperlipidemia) Chest pain Chief Complaint BLOOD IN STOOL & ANE AGUILA EORDERS NONSTEMI NONSTEMI NONSTEMI NONSTEMI NONSTEMI NSTEMI EORDERS EORDER Reason for Visit Positive occult stoo l blood test Atrial fibrillation, new onset Essential hypertension HLD (hyperlipidemia) Chest pain Elevated troponin Non-ST elevated myocardial infarction Atrial fibrillation, new onset Dyspnea on exertion Essential hypertension HLD (hyperlipidemia) Syncope Chief Complaint BLOOD IN STOOL & ANE AGUILA EORDERS NONSTEMI NONSTEMI NONSTEMI NONSTEMI NONSTEMI NSTEMI EORDERS EORDER unable to urinate Reason for Visit Positive occult stoo l blood test Atrial fibrillation, new onset Essential hypertension HLD (hyperlipidemia) Chest pain Elevated troponin Non-ST elevated myocardial infarction Atrial fibrillation, new onset Dyspnea on exertion Essential hypertension HLD (hyperlipidemia) Syncope Chief Complaint BLOOD IN STOOL & ANE AGUILA EORDERS NONSTEMI NONSTEMI NONSTEMI NONSTEMI NONSTEMI NSTEMI EORDERS EORDER unable to urinate 4 WK FU HTN Reason for Visit Positive occult stoo l blood test Atrial fibrillation, new onset Essential hypertension HLD (hyperlipidemia) Chest pain Elevated troponin Non-ST elevated myocardial infarction Atrial fibrillation, new onset Dyspnea on exertion Essential hypertension HLD (hyperlipidemia) Syncope Atrial fibrillation, new onset Dyspnea on exertion Essential hypertension HLD (hyperlipidemia) Syncope Chief Complaint BLOOD IN STOOL & ANE AGUILA EORDERS NONSTEMI NONSTEMI NONSTEMI NONSTEMI NONSTEMI NSTEMI EORDERS EORDER unable to urinate 4 WK FU HTN FU PFM pt: ER visit 04/24 Norma BAIRES ACUTE DECOMPENSATED HEART FAILURE Reason for Visit Positive occult stoo l blood test Atrial fibrillation, new onset Essential hypertension HLD (hyperlipidemia) Chest pain Elevated troponin Non-ST elevated myocardial infarction Atrial fibrillation, new onset Dyspnea on exertion Essential hypertension HLD (hyperlipidemia) Syncope Atrial fibrillation, new onset Dyspnea on exertion Essential hypertension HLD (hyperlipidemia) Syncope GI bleed Atrial fibrillation, new onset Bilateral lower extremity edema Dyspnea on exertion Essential hypertension HLD (hyperlipidemia) Syncope Acidosis, lactic Acute hypotension Atrial fibrillation with rapid ventricular response Lymphedema of both lower extremities Chief Complaint BLOOD IN STOOL & ANE AGUILA EORDERS NONSTEMI NONSTEMI NONSTEMI NONSTEMI NONSTEMI NSTEMI EORDERS EORDER unable to urinate 4 WK FU HTN FU PFM pt: ER visit 04/24 Norma BAIRES ACUTE DECOMPENSATED HEART FAILURE ACUTE DECOMPENSATED HEART FAILURE ACUTE DECOMPENSATED HEART FAILURE ACUTE DECOMPENSATED HEART FAILURE ACUTE DECOMPENSATED HEART FAILURE ACUTE DECOMPENSATED HEART FAILURE ACUTE DECOMPENSATED HEART FAILURE ACUTE DECOMPENSATED HEART FAILURE ACUTE DECOMPENSATED HEART FAILURE ACUTE DECOMPENSATED HEART FAILURE Reason for Visit Positive occult stoo l blood test Atrial fibrillation, new onset Essential hypertension HLD (hyperlipidemia) Chest pain Elevated troponin Non-ST elevated myocardial infarction Atrial fibrillation, new onset Dyspnea on exertion Essential hypertension HLD (hyperlipidemia) Syncope Atrial fibrillation, new onset Dyspnea on exertion Essential hypertension HLD (hyperlipidemia) Syncope GI bleed Atrial fibrillation, new onset Bilateral lower extremity edema Dyspnea on exertion Essential hypertension HLD (hyperlipidemia) Syncope Abnormal cardiac enzyme level Acidosis, lactic Acute heart failure with preserved ejection fraction (HFpEF) Acute hypotension Atrial fibrillation with rapid ventricular response Bilateral lower extremity edema Dyspnea on exertion Elevated liver enzymes Elevated troponin GI bleed Hypokalemia Lymphedema of both lower extremities Palpitations Renal insufficiency Stage 3b chronic kidney disease (CKD) Acute kidney injury superimposed on CKD Essential hypertension HLD (hyperlipidemia) Chief Complaint BLOOD IN STOOL & ANE AGUILA EORDERS NONSTEMI NONSTEMI NONSTEMI NONSTEMI NONSTEMI NSTEMI EORDERS EORDER unable to urinate 4 WK FU HTN FU PFM pt: ER visit 04/24 LSoledad Bowen ORDER ACUTE DECOMPENSATED HEART FAILURE ACUTE DECOMPENSATED HEART FAILURE ACUTE DECOMPENSATED HEART FAILURE ACUTE DECOMPENSATED HEART FAILURE ACUTE DECOMPENSATED HEART FAILURE ACUTE DECOMPENSATED HEART FAILURE ACUTE DECOMPENSATED HEART FAILURE ACUTE DECOMPENSATED HEART FAILURE ACUTE DECOMPENSATED HEART FAILURE ACUTE DECOMPENSATED HEART FAILURE Reason for Visit Positive occult stoo l blood test Atrial fibrillation, new onset Chest pain Elevated troponin Non-ST elevated myocardial infarction Atrial fibrillation, new onset Syncope Atrial fibrillation, new onset Syncope GI bleed Atrial fibrillation, new onset Syncope Abnormal cardiac enzyme level Acidosis, lactic Acute heart failure with preserved ejection fraction (HFpEF) Acute hypotension Acute kidney injury superimposed on CKD Atrial fibrillation with rapid ventricular response Elevated troponin GI bleed Hypokalemia Renal insufficiency Chief Complaint BLOOD IN STOOL & ANE AGUILA EORDERS NONSTEMI NONSTEMI NONSTEMI NONSTEMI NONSTEMI NSTEMI EORDERS EORDER unable to urinate 4 WK FU HTN FU PFM pt: ER visit 04/24 L.Neryson E VIRY ACUTE DECOMPENSATED HEART FAILURE ACUTE DECOMPENSATED HEART FAILURE ACUTE DECOMPENSATED HEART FAILURE ACUTE DECOMPENSATED HEART FAILURE ACUTE DECOMPENSATED HEART FAILURE ACUTE DECOMPENSATED HEART FAILURE ACUTE DECOMPENSATED HEART FAILURE ACUTE DECOMPENSATED HEART FAILURE ACUTE DECOMPENSATED HEART FAILURE ACUTE DECOMPENSATED HEART FAILURE 2 WK F/U palpitations Reason for Visit Positive occult stoo l blood test Atrial fibrillation, new onset Chest pain Elevated troponin Non-ST elevated myocardial infarction Atrial fibrillation, new onset Syncope Atrial fibrillation, new onset Syncope GI bleed Atrial fibrillation, new onset Syncope Abnormal cardiac enzyme level Acidosis, lactic Acute heart failure with preserved ejection fraction (HFpEF) Acute hypotension Acute kidney injury superimposed on CKD Atrial fibrillation with rapid ventricular response Elevated troponin GI bleed Hypokalemia Renal insufficiency Atrial fibrillation, new onset Syncope Chief Complaint NSTEMI EORDERS EORDER unable to urinate 4 WK FU HTN FU PFM pt: ER visit 04/24 L.Lorson E ORDER ACUTE DECOMPENSATED HEART FAILURE ACUTE DECOMPENSATED HEART FAILURE ACUTE DECOMPENSATED HEART FAILURE ACUTE DECOMPENSATED HEART FAILURE ACUTE DECOMPENSATED HEART FAILURE ACUTE DECOMPENSATED HEART FAILURE ACUTE DECOMPENSATED HEART FAILURE ACUTE DECOMPENSATED HEART FAILURE ACUTE DECOMPENSATED HEART FAILURE ACUTE DECOMPENSATED HEART FAILURE 2 WK F/U palpitations A-Fib E ORDER E ORDER Reason for Visit Atrial fibrillation, new onset Syncope Atrial fibrillation, new onset Syncope GI bleed Atrial fibrillation, new onset Syncope Abnormal cardiac enzyme level Acidosis, lactic Acute heart failure with preserved ejection fraction (HFpEF) Acute hypotension Acute kidney injury superimposed on CKD Atrial fibrillation with rapid ventricular response Elevated troponin GI bleed Hypokalemia Renal insufficiency Atrial fibrillation, new onset Syncope CHF (congestive heart failure) HLD (hyperlipidemia) Essential hypertension Chief Complaint EORDER unable to urinate 4 WK FU HTN FU PFM pt: ER visit 04/24 L.Lorson E ORDER ACUTE DECOMPENSATED HEART FAILURE ACUTE DECOMPENSATED HEART FAILURE ACUTE DECOMPENSATED HEART FAILURE ACUTE DECOMPENSATED HEART FAILURE ACUTE DECOMPENSATED HEART FAILURE ACUTE DECOMPENSATED HEART FAILURE ACUTE DECOMPENSATED HEART FAILURE ACUTE DECOMPENSATED HEART FAILURE ACUTE DECOMPENSATED HEART FAILURE ACUTE DECOMPENSATED HEART FAILURE 2 WK F/U palpitations A-Fib E ORDER E ORDER DUE AROUND DATE LISTED Reason for Visit Atrial fibrillation, new onset Syncope GI bleed Atrial fibrillation, new onset Syncope Abnormal cardiac enzyme level Acidosis, lactic Acute heart failure with preserved ejection fraction (HFpEF) Acute hypotension Acute kidney injury superimposed on CKD Atrial fibrillation with rapid ventricular response Elevated troponin GI bleed Hypokalemia Renal insufficiency Atrial fibrillation, new onset Syncope CHF (congestive heart failure) HLD (hyperlipidemia) Essential hypertension Chief Complaint palpitations A-Fib E ORDER E ORDER DUE AROUND DATE LISTED 1 Y FU DUE ON OR AROUND DATE LISTED Reason for Visit CHF (congestive hear t failure) HLD (hyperlipidemia) Essential hypertension CHF (congestive heart failure) HLD (hyperlipidemia) Essential hypertension Chief Complaint 1 Y FU DUE ON OR AROUND DATE LISTED STILL HAVING ISSUES EORDERS 2 W FU Reason for Visit CHF (congestive hear t failure) HLD (hyperlipidemia) Essential hypertension Anemia Positive occult stool blood test Upper GI bleed Chief Complaint DUE ON OR AROUND ANTONINO E LISTED PER ORDER Osteoporosis SYNCOPE Reason for Visit Osteoporosis Anemia Back pain Elevated troponin Fall Foot pain, bilateral Hyperglycemia Hypoxia Syncope Chronic kidney disease Chief Complaint Osteoporosis SYNCOPE SYNCOPE SYNCOPE SYNCOPE SYNCOPE 6 M FU Reason for Visit Osteoporosis Anemia Back pain Elevated troponin Fall Foot pain, bilateral Hyperglycemia Hypoxia Chronic kidney disease Syncope CHF (congestive heart failure) HLD (hyperlipidemia) Essential hypertension Chief Complaint SYNCOPE SYNCOPE SYNCOPE SYNCOPE SYNCOPE 6 M FU PROLIA- B & B 3 M FU Reason for Visit Anemia Back pain Elevated troponin Fall Foot pain, bilateral Hyperglycemia Hypoxia Chronic kidney disease Syncope CHF (congestive heart failure) HLD (hyperlipidemia) Essential hypertension Osteoporosis CHF (congestive heart failure) HLD (hyperlipidemia) Essential hypertension Chief Complaint Admit Date 1 Y FU June 14, 2024 12:52pm HYPERTENSION August 26, 2024 11:47pm tachycardia October 11, 2024 1:2 8pm PAF RVR, ELEVATED TROP October 11, 2024 2:08pm Reason for Visit Admit Date Hypothyroidism (acquired) June 14, 2024 12:52pm Osteoporosis June 14, 2024 12:52pm Atrial fibrillation with RVR October 11, 2024 2:08pm Elevated troponin October 11, 2024 2:0 8pm Chief Complaint Admit Date HYPERTENSION August 26, 2024 11:47pm tachycardia October 11, 2024 1:2 8pm PAF RVR, ELEVATED TROP October 11, 2024 2:08pm PAF RVR, ELEVATED TROP October 11, 2024 5:32pm PAF RVR, ELEVATED TROP October 12, 2024 8:11am PAF RVR, ELEVATED TROP October 12, 2024 11:29am PAF RVR, ELEVATED TROP October 13, 2024 8:16am Reason for Visit Admit Date Atrial fibrillation with RVR October 11, 2024 2:08pm CHF (congestive heart failure) September 2:08pm Elevated troponin October 11, 2024 2:0 8pm Paroxysmal atrial fibrillation September 2:08pm Chronic kidney disease October 11, 2024 2:08pm Essential hypertension October 11, 2024 2:08pm Chief Complaint Admit Date HYPERTENSION August 26, 2024 11:47pm tachycardia October 11, 2024 1:2 8pm PAF RVR, ELEVATED TROP October 11, 2024 2:08pm PAF RVR, ELEVATED TROP October 11, 2024 5:32pm PAF RVR, ELEVATED TROP October 12, 2024 8:11am PAF RVR, ELEVATED TROP October 12, 2024 11:29am PAF RVR, ELEVATED TROP October 13, 2024 8:16am PAF RVR, ELEVATED TROP October 13, 2024 3:21pm Hypotension, fatigue see NN Cathleen September [id number] 2:16pm ATRIAL FIBRILLATION October 27, 2024 12:59p m AFIB WITH RENAL FAILURE October 30, 2024 5: 20pm AFIB WITH RENAL FAILURE October 31, 2024 8: 42am AFIB WITH RENAL FAILURE October 31, 2024 10 :52am AFIB WITH RENAL FAILURE November 01, 2024 8: 43am AFIB WITH RENAL FAILURE November 01, 2024 9: 40am Reason for Visit Admit Date CHF (congestive heart failure) September 2:08pm Elevated troponin October 11, 2024 2:0 8pm Paroxysmal atrial fibrillation September 2:08pm Chronic kidney disease October 11, 2024 2:08pm Essential hypertension October 11, 2024 2:08pm Atrial fibrillation with RVR October 11, 2024 2:08pm CHF (congestive heart failure) September 2:16pm HLD (hyperlipidemia) October 24, 2024 2: 16pm Essential hypertension October 24, 2024 2:16pm Atrial fibrillation with RVR October 24, 2024 2:16pm GERI (acute kidney injury) October 30, 2024 5:20pm CHF (congestive heart failure) October 30, 2024 5:20pm Paroxysmal atrial fibrillation October 30, 2024 5:20pm Essential hypertension October 30, 2024 5:2 0pm Chief Complaint Admit Date HYPERTENSION August 26, 2024 11:47pm tachycardia October 11, 2024 1:2 8pm PAF RVR, ELEVATED TROP October 11, 2024 2:08pm PAF RVR, ELEVATED TROP October 11, 2024 5:32pm PAF RVR, ELEVATED TROP October 12, 2024 8:11am PAF RVR, ELEVATED TROP October 12, 2024 11:29am PAF RVR, ELEVATED TROP October 13, 2024 8:16am PAF RVR, ELEVATED TROP October 13, 2024 3:21pm Hypotension, fatigue see NN Cathleen September [id number] 2:16pm ATRIAL FIBRILLATION October 27, 2024 12:59p m AFIB WITH RENAL FAILURE October 30, 2024 5: 20pm AFIB WITH RENAL FAILURE October 31, 2024 8: 42am AFIB WITH RENAL FAILURE October 31, 2024 10 :52am AFIB WITH RENAL FAILURE November 01, 2024 8: 43am AFIB WITH RENAL FAILURE November 01, 2024 9: 40am AFIB WITH RENAL FAILURE November 02, 2024 8: 56am AFIB WITH RENAL FAILURE November 02, 2024 5: 04pm AFIB WITH RENAL FAILURE November 03, 2024 9: 34am AFIB WITH RENAL FAILURE November 03, 2024 11 :07am Reason for Visit Admit Date CHF (congestive heart failure) September 2:08pm Elevated troponin October 11, 2024 2:0 8pm Paroxysmal atrial fibrillation September 2:08pm Chronic kidney disease October 11, 2024 2:08pm Essential hypertension October 11, 2024 2:08pm Atrial fibrillation with RVR October 11, 2024 2:08pm CHF (congestive heart failure) September 2:16pm HLD (hyperlipidemia) October 24, 2024 2: 16pm Essential hypertension October 24, 2024 2:16pm Atrial fibrillation with RVR October 24, 2024 2:16pm GERI (acute kidney injury) October 30, 2024 5:20pm CHF (congestive heart failure) October 30, 2024 5:20pm Paroxysmal atrial fibrillation October 30, 2024 5:20pm Chronic kidney disease October 30, 2024 5:2 0pm Essential hypertension October 30, 2024 5:2 0pm Chief Complaint Admit Date HYPERTENSION August 26, 2024 11:47pm tachycardia October 11, 2024 1:2 8pm PAF RVR, ELEVATED TROP October 11, 2024 2:08pm PAF RVR, ELEVATED TROP October 11, 2024 5:32pm PAF RVR, ELEVATED TROP October 12, 2024 8:11am PAF RVR, ELEVATED TROP October 12, 2024 11:29am PAF RVR, ELEVATED TROP October 13, 2024 8:16am PAF RVR, ELEVATED TROP October 13, 2024 3:21pm Hypotension, fatigue see NN L.L. September [id number] 2:16pm ATRIAL FIBRILLATION October 27, 2024 12:59p m ATRIAL FIBRILLATION October 27, 2024 1:17pm AFIB WITH RENAL FAILURE October 30, 2024 5: 20pm AFIB WITH RENAL FAILURE October 31, 2024 8: 42am AFIB WITH RENAL FAILURE October 31, 2024 10 :52am AFIB WITH RENAL FAILURE November 01, 2024 8: 43am AFIB WITH RENAL FAILURE November 01, 2024 9: 40am AFIB WITH RENAL FAILURE November 02, 2024 8: 56am AFIB WITH RENAL FAILURE November 02, 2024 5: 04pm AFIB WITH RENAL FAILURE November 03, 2024 9: 34am AFIB WITH RENAL FAILURE November 03, 2024 11 :07am EORDER November 08, 2024 11:43 am Prolia - B&B November 08, 2024 1:42p m Reason for Visit Admit Date CHF (congestive heart failure) September 2:08pm Elevated troponin October 11, 2024 2:0 8pm Paroxysmal atrial fibrillation September 2:08pm Essential hypertension October 11, 2024 2:08pm Atrial fibrillation with RVR October 11, 2024 2:08pm Chronic kidney disease October 11, 2024 2:08pm CHF (congestive heart failure) September 2:16pm HLD (hyperlipidemia) October 24, 2024 2: 16pm Essential hypertension October 24, 2024 2:16pm Atrial fibrillation with RVR October 24, 2024 2:16pm CHF (congestive heart failure) October 30, 2024 5:20pm Paroxysmal atrial fibrillation October 30, 2024 5:20pm Essential hypertension October 30, 2024 5:2 0pm GERI (acute kidney injury) October 30, 2024 5:20pm Chronic kidney disease October 30, 2024 5:2 0pm Chief Complaint Admit Date HYPERTENSION August 26, 2024 11:47pm tachycardia October 11, 2024 1:2 8pm PAF RVR, ELEVATED TROP October 11, 2024 2:08pm PAF RVR, ELEVATED TROP October 11, 2024 5:32pm PAF RVR, ELEVATED TROP October 12, 2024 8:11am PAF RVR, ELEVATED TROP October 12, 2024 11:29am PAF RVR, ELEVATED TROP October 13, 2024 8:16am PAF RVR, ELEVATED TROP October 13, 2024 3:21pm Hypotension, fatigue see NN L.L. September [id number] 2:16pm ATRIAL FIBRILLATION October 27, 2024 12:59p m ATRIAL FIBRILLATION October 27, 2024 1:17pm AFIB WITH RENAL FAILURE October 30, 2024 5: 20pm AFIB WITH RENAL FAILURE October 31, 2024 8: 42am AFIB WITH RENAL FAILURE October 31, 2024 10 :52am AFIB WITH RENAL FAILURE November 01, 2024 8: 43am AFIB WITH RENAL FAILURE November 01, 2024 9: 40am AFIB WITH RENAL FAILURE November 02, 2024 8: 56am AFIB WITH RENAL FAILURE November 02, 2024 5: 04pm AFIB WITH RENAL FAILURE November 03, 2024 9: 34am AFIB WITH RENAL FAILURE November 03, 2024 11 :07am EORDER November 08, 2024 11:43 am Prolia - B&B November 08, 2024 1:42p m S/P [facility] 10/13 PAF RVR/ELEVATED TROP October [id number] 1:54pm Reason for Visit Admit Date CHF (congestive heart failure) September 2:08pm Elevated troponin October 11, 2024 2:0 8pm Paroxysmal atrial fibrillation September 2:08pm Essential hypertension October 11, 2024 2:08pm Atrial fibrillation with RVR October 11, 2024 2:08pm Chronic kidney disease October 11, 2024 2:08pm CHF (congestive heart failure) September 2:16pm HLD (hyperlipidemia) October 24, 2024 2: 16pm Essential hypertension October 24, 2024 2:16pm Atrial fibrillation with RVR October 24, 2024 2:16pm CHF (congestive heart failure) October 30, 2024 5:20pm Paroxysmal atrial fibrillation October 30, 2024 5:20pm Essential hypertension October 30, 2024 5:2 0pm GERI (acute kidney injury) October 30, 2024 5:20pm Chronic kidney disease October 30, 2024 5:2 0pm Osteoporosis November 08, 2024 1:42p m CHF (congestive heart failure) November 11, 2024 1:54pm HLD (hyperlipidemia) November 11, 2024 1:54 pm Essential hypertension November 11, 2024 1: 54pm Atrial fibrillation with RVR November 11, 2 025 1:54pm Chief Complaint Admit Date HYPERTENSION August 26, 2024 11:47pm tachycardia October 11, 2024 1:2 8pm PAF RVR, ELEVATED TROP October 11, 2024 2:08pm PAF RVR, ELEVATED TROP October 11, 2024 5:32pm PAF RVR, ELEVATED TROP October 12, 2024 8:11am PAF RVR, ELEVATED TROP October 12, 2024 11:29am PAF RVR, ELEVATED TROP October 13, 2024 8:16am PAF RVR, ELEVATED TROP October 13, 2024 3:21pm Hypotension, fatigue see NN L.L. September [id number] 2:16pm ATRIAL FIBRILLATION October 27, 2024 12:59p m ATRIAL FIBRILLATION October 27, 2024 1:17pm AFIB WITH RENAL FAILURE October 30, 2024 5: 20pm AFIB WITH RENAL FAILURE October 31, 2024 8: 42am AFIB WITH RENAL FAILURE October 31, 2024 10 :52am AFIB WITH RENAL FAILURE November 01, 2024 8: 43am AFIB WITH RENAL FAILURE November 01, 2024 9: 40am AFIB WITH RENAL FAILURE November 02, 2024 8: 56am AFIB WITH RENAL FAILURE November 02, 2024 5: 04pm AFIB WITH RENAL FAILURE November 03, 2024 9: 34am AFIB WITH RENAL FAILURE November 03, 2024 11 :07am EORDER November 08, 2024 11:43 am Prolia - B&B November 08, 2024 1:42p m S/P [facility] 10/13 PAF RVR/ELEVATED TROP October [id number] 1:54pm EKG November 15, 2024 11:03 am Chief Complaint Admit Date HYPERTENSION August 26, 2024 11:47pm tachycardia October 11, 2024 1:2 8pm PAF RVR, ELEVATED TROP October 11, 2024 2:08pm PAF RVR, ELEVATED TROP October 11, 2024 5:32pm PAF RVR, ELEVATED TROP October 12, 2024 8:11am PAF RVR, ELEVATED TROP October 12, 2024 11:29am PAF RVR, ELEVATED TROP October 13, 2024 8:16am PAF RVR, ELEVATED TROP October 13, 2024 3:21pm Hypotension, fatigue see NN L.L. September [id number] 2:16pm ATRIAL FIBRILLATION October 27, 2024 12:59p m ATRIAL FIBRILLATION October 27, 2024 1:17pm AFIB WITH RENAL FAILURE October 30, 2024 5: 20pm AFIB WITH RENAL FAILURE October 31, 2024 8: 42am AFIB WITH RENAL FAILURE October 31, 2024 10 :52am AFIB WITH RENAL FAILURE November 01, 2024 8: 43am AFIB WITH RENAL FAILURE November 01, 2024 9: 40am AFIB WITH RENAL FAILURE November 02, 2024 8: 56am AFIB WITH RENAL FAILURE November 02, 2024 5: 04pm AFIB WITH RENAL FAILURE November 03, 2024 9: 34am AFIB WITH RENAL FAILURE November 03, 2024 11 :07am EORDER November 08, 2024 11:43 am Prolia - B&B November 08, 2024 1:42p m S/P [facility] 10/13 PAF RVR/ELEVATED TROP October [id number] 1:54pm EKG November 15, 2024 11:03 am palpitations November 19, 2024 9:12a m 2 W FU November 25, 2024 1:41p m Reason for Visit Admit Date CHF (congestive heart failure) September 2:08pm Elevated troponin October 11, 2024 2:0 8pm Paroxysmal atrial fibrillation September 2:08pm Essential hypertension October 11, 2024 2:08pm Atrial fibrillation with RVR October 11, 2024 2:08pm Chronic kidney disease October 11, 2024 2:08pm CHF (congestive heart failure) September 2:16pm HLD (hyperlipidemia) October 24, 2024 2: 16pm Essential hypertension October 24, 2024 2:16pm Atrial fibrillation with RVR October 24, 2024 2:16pm CHF (congestive heart failure) October 30, 2024 5:20pm Paroxysmal atrial fibrillation October 30, 2024 5:20pm Essential hypertension October 30, 2024 5:2 0pm GERI (acute kidney injury) October 30, 2024 5:20pm Chronic kidney disease October 30, 2024 5:2 0pm Osteoporosis November 08, 2024 1:42p m CHF (congestive heart failure) November 11, 2024 1:54pm HLD (hyperlipidemia) November 11, 2024 1:54 pm Essential hypertension November 11, 2024 1: 54pm Atrial fibrillation with RVR November 11, 2 025 1:54pm CHF (congestive heart failure) November 25, 2024 1:41pm HLD (hyperlipidemia) November 25, 2024 1:41 pm Essential hypertension November 25, 2024 1: 41pm Atrial fibrillation with RVR November 25, 2 025 1:41pm Chief Complaint Admit Date tachycardia October 11, 2024 1:2 8pm PAF RVR, ELEVATED TROP October 11, 2024 2:08pm PAF RVR, ELEVATED TROP October 11, 2024 5:32pm PAF RVR, ELEVATED TROP October 12, 2024 8:11am PAF RVR, ELEVATED TROP October 12, 2024 11:29am PAF RVR, ELEVATED TROP October 13, 2024 8:16am PAF RVR, ELEVATED TROP October 13, 2024 3:21pm Hypotension, fatigue see NN L.L. September [id number] 2:16pm ATRIAL FIBRILLATION October 27, 2024 12:59p m ATRIAL FIBRILLATION October 27, 2024 1:17pm AFIB WITH RENAL FAILURE October 30, 2024 5: 20pm AFIB WITH RENAL FAILURE October 31, 2024 8: 42am AFIB WITH RENAL FAILURE October 31, 2024 10 :52am BLE WEAKNESS October 31, 2024 1:06pm AFIB WITH RENAL FAILURE November 01, 2024 8: 43am AFIB WITH RENAL FAILURE November 01, 2024 9: 40am AFIB WITH RENAL FAILURE November 02, 2024 8: 56am AFIB WITH RENAL FAILURE November 02, 2024 5: 04pm AFIB WITH RENAL FAILURE November 03, 2024 9: 34am AFIB WITH RENAL FAILURE November 03, 2024 11 :07am EORDER November 08, 2024 11:43 am Prolia - B&B November 08, 2024 1:42p m S/P [facility] 10/13 PAF RVR/ELEVATED TROP October 272024 1:54pm EKG November 15, 2024 11:03 am palpitations November 19, 2024 9:12a m 2 W FU November 25, 2024 1:41p m Chief Complaint Admit Date tachycardia October 11, 2024 1:2 8pm PAF RVR, ELEVATED TROP October 11, 2024 2:08pm PAF RVR, ELEVATED TROP October 11, 2024 5:32pm PAF RVR, ELEVATED TROP October 12, 2024 8:11am PAF RVR, ELEVATED TROP October 12, 2024 11:29am PAF RVR, ELEVATED TROP October 13, 2024 8:16am PAF RVR, ELEVATED TROP October 13, 2024 3:21pm Hypotension, fatigue see NN L.L. September 282024 2:16pm ATRIAL FIBRILLATION October 27, 2024 12:59p m ATRIAL FIBRILLATION October 27, 2024 1:17pm AFIB WITH RENAL FAILURE October 30, 2024 5: 20pm AFIB WITH RENAL FAILURE October 31, 2024 8: 42am AFIB WITH RENAL FAILURE October 31, 2024 10 :52am BLE WEAKNESS October 31, 2024 1:06pm AFIB WITH RENAL FAILURE November 01, 2024 8: 43am AFIB WITH RENAL FAILURE November 01, 2024 9: 40am AFIB WITH RENAL FAILURE November 02, 2024 8: 56am AFIB WITH RENAL FAILURE November 02, 2024 5: 04pm AFIB WITH RENAL FAILURE November 03, 2024 9: 34am AFIB WITH RENAL FAILURE November 03, 2024 11 :07am EORDER November 08, 2024 11:43 am Prolia - B&B November 08, 2024 1:42p m S/P [facility] 10/13 PAF RVR/ELEVATED TROP October 272024 1:54pm EKG November 15, 2024 11:03 am palpitations November 19, 2024 9:12a m 2 W FU November 25, 2024 1:41p m 1 M FU January 09, 2025 11:2 9am Chief Complaint Admit Date tachycardia October 11, 2024 1:2 8pm PAF RVR, ELEVATED TROP October 11, 2024 2:08pm PAF RVR, ELEVATED TROP October 11, 2024 5:32pm PAF RVR, ELEVATED TROP October 12, 2024 8:11am PAF RVR, ELEVATED TROP October 12, 2024 11:29am PAF RVR, ELEVATED TROP October 13, 2024 8:16am PAF RVR, ELEVATED TROP October 13, 2024 3:21pm Hypotension, fatigue see NN L.L. September 282024 2:16pm ATRIAL FIBRILLATION October 27, 2024 12:59p m ATRIAL FIBRILLATION October 27, 2024 1:17pm AFIB WITH RENAL FAILURE October 30, 2024 5: 20pm AFIB WITH RENAL FAILURE October 31, 2024 8: 42am AFIB WITH RENAL FAILURE October 31, 2024 10 :52am BLE WEAKNESS October 31, 2024 1:06pm AFIB WITH RENAL FAILURE November 01, 2024 8: 43am AFIB WITH RENAL FAILURE November 01, 2024 9: 40am AFIB WITH RENAL FAILURE November 02, 2024 8: 56am AFIB WITH RENAL FAILURE November 02, 2024 5: 04pm AFIB WITH RENAL FAILURE November 03, 2024 9: 34am AFIB WITH RENAL FAILURE November 03, 2024 11 :07am EORDER November 08, 2024 11:43 am Prolia - B&B November 08, 2024 1:42p m S/P [facility] 10/13 PAF RVR/ELEVATED TROP October 272024 1:54pm EKG November 15, 2024 11:03 am palpitations November 19, 2024 9:12a m 2 W FU November 25, 2024 1:41p m 1 M FU January 09, 2025 11:2 9am PAROXYSMAL ATRIAL FIBRILLATION January 1:49pm Reason for Visit Admit Date CHF (congestive heart failure) September 2:08pm Elevated troponin October 11, 2024 2:0 8pm Paroxysmal atrial fibrillation September 2:08pm Essential hypertension October 11, 2024 2:08pm Atrial fibrillation with RVR October 11, 2024 2:08pm Chronic kidney disease October 11, 2024 2:08pm CHF (congestive heart failure) September 2:16pm HLD (hyperlipidemia) October 24, 2024 2: 16pm Essential hypertension October 24, 2024 2:16pm Atrial fibrillation with RVR October 24, 2024 2:16pm CHF (congestive heart failure) October 30, 2024 5:20pm Paroxysmal atrial fibrillation October 30, 2024 5:20pm Essential hypertension October 30, 2024 5:2 0pm GERI (acute kidney injury) May 4th, 2025 5:20pm Chronic kidney disease October 30, 2024 5:2 0pm Osteoporosis November 08, 2024 1:42p m CHF (congestive heart failure) November 11, 2024 1:54pm HLD (hyperlipidemia) November 11, 2024 1:54 pm Essential hypertension November 11, 2024 1: 54pm Atrial fibrillation with RVR November 11, 2 025 1:54pm CHF (congestive heart failure) November 25, 2024 1:41pm HLD (hyperlipidemia) November 25, 2024 1:41 pm Essential hypertension November 25, 2024 1: 41pm Atrial fibrillation with RVR November 25, 2 025 1:41pm CHF (congestive heart failure) December 11:29am Paroxysmal atrial fibrillation December 11:29am Essential hypertension January 09, 2025 1 1:29am Chief Complaint Admit Date ATRIAL FIBRILLATION October 27, 2024 12:59p m ATRIAL FIBRILLATION October 27, 2024 1:17pm AFIB WITH RENAL FAILURE October 30, 2024 5: 20pm AFIB WITH RENAL FAILURE October 31, 2024 8: 42am AFIB WITH RENAL FAILURE October 31, 2024 10 :52am BLE WEAKNESS October 31, 2024 1:06pm AFIB WITH RENAL FAILURE November 01, 2024 8: 43am AFIB WITH RENAL FAILURE November 01, 2024 9: 40am AFIB WITH RENAL FAILURE November 02, 2024 8: 56am AFIB WITH RENAL FAILURE November 02, 2024 5: 04pm AFIB WITH RENAL FAILURE November 03, 2024 9: 34am AFIB WITH RENAL FAILURE November 03, 2024 11 :07am EORDER November 08, 2024 11:43 am Prolia - B&B November 08, 2024 1:42p m S/P [facility] 10/13 PAF RVR/ELEVATED TROP October 272024 1:54pm EKG November 15, 2024 11:03 am palpitations November 19, 2024 9:12a m 2 W FU November 25, 2024 1:41p m 1 M FU January 09, 2025 11:2 9am PAROXYSMAL ATRIAL FIBRILLATION January 1:49pm 12m f/u February 22, 2025 1: 23pm Reason for Visit Admit Date CHF (congestive heart failure) October 30, 2024 5:20pm Paroxysmal atrial fibrillation October 30, 2024 5:20pm Essential hypertension October 30, 2024 5:2 0pm GERI (acute kidney injury) October 30, 2024 5:20pm Chronic kidney disease October 30, 2024 5:2 0pm Osteoporosis November 08, 2024 1:42p m CHF (congestive heart failure) November 11, 2024 1:54pm HLD (hyperlipidemia) November 11, 2024 1:54 pm Essential hypertension November 11, 2024 1: 54pm Atrial fibrillation with RVR November 11 2 025 1:54pm CHF (congestive heart failure) November 25, 2024 1:41pm HLD (hyperlipidemia) November 25, 2024 1:41 pm Essential hypertension November 25, 2024 1: 41pm Atrial fibrillation with RVR November 25, 2 025 1:41pm CHF (congestive heart failure) December 11:29am Paroxysmal atrial fibrillation December 11:29am Essential hypertension January 09, 2025 1 1:29am Mixed incontinence February 22, 2025 1: 23pm Nocturia February 22, 2025 1: 23pm Overactive bladder February 22, 2025 1: 23pm Urinary tract infection February 22 1:23pm Chief Complaint Admit Date S/P [facility] 10/13 PAF RVR/ELEVATED TROP October 272024 1:54pm EKG November 15, 2024 11:03 am palpitations November 19, 2024 9:12a m 2 W FU November 25, 2024 1:41p m 1 M FU January 09, 2025 11:2 9am PAROXYSMAL ATRIAL FIBRILLATION January 1:49pm 12m f/u February 22, 2025 1: 23pm LABS March 01, 2025 11:56am Reason for Visit Admit Date CHF (congestive heart failure) November 11, 2024 1:54pm HLD (hyperlipidemia) November 11, 2024 1:54 pm Essential hypertension November 11, 2024 1: 54pm Atrial fibrillation with RVR November 11, 2 025 1:54pm CHF (congestive heart failure) November 25, 2024 1:41pm HLD (hyperlipidemia) November 25, 2024 1:41 pm Essential hypertension November 25, 2024 1: 41pm Atrial fibrillation with RVR November 25 025 1:41pm CHF (congestive heart failure) December 11:29am Paroxysmal atrial fibrillation December 11:29am Essential hypertension January 09, 2025 1 1:29am Mixed incontinence February 22, 2025 1: 23pm Nocturia February 22, 2025 1: 23pm Overactive bladder February 22, 2025 1: 23pm Urinary tract infection February 22 1:23pm Family History No Family History Records Found Relationship Condition Age at Onset Recorded Date/T awa mother Coronary artery disease Unknown father Coronary artery disease Unknown brother Coronary artery disease Unknown sister Coronary artery disease Unknown Advance Directives No Advanced Directives Records Found Advance Directive Response Recorded Date/ Time Living Will No February 04, 2018 2:47pm Power of Certified Physician'S Assistant No February 04 2:47pm Advance Directive Response Recorded Date/ Time Name of Medical Power of Certified Physician'S Assistant daughter February 21, 2022 6:31pm Living Will Yes February 21 6:31pm Power of Certified Physician'S Assistant Yes February 21 6:31pm Advance Directive Response Recorded Date/ Time Name of Medical Power of Certified Physician'S Assistant daughter February 21, 2022 6:31pm Living Will No April 04 12:50pm Power of Certified Physician'S Assistant No April 04 12:50pm Advance Directive Response Recorded Date/ Time Name of Medical Power of Certified Physician'S Assistant daughter February 21, 2022 6:31pm Name of Medical Power of Certified Physician'S Assistant Murtaza April 24, 2022 2:51pm Living Will Yes April 24 2:51pm Power of Certified Physician'S Assistant Yes April 24, 2022 2:51pm Advance Directive Response Recorded Date/ Time Name of Medical Power of Certified Physician'S Assistant daughter February 21, 2022 6:31pm Name of Medical Power of Certified Physician'S Assistant Murtaza April 24, 2022 2:51pm Name of Medical Power of Certified Physician'S Assistant Murtaza May 01, 2022 6:43pm Living Will Yes May 01 6:43pm Power of Certified Physician'S Assistant Yes May 01, 2022 6:43pm Advance Directive Response Recorded Date/ Time Name of Medical Power of Certified Physician'S Assistant daughter February 21, 2022 5:31pm Name of Medical Power of Certified Physician'S Assistant Murtaza April 24, 2022 1:51pm Name of Medical Power of Certified Physician'S Assistant murtaza bates daughter May 01, 2022 8:54pm Living Will Yes May 01 8:54pm Power of Certified Physician'S Assistant Yes May 01, 2022 8:54pm Advance Directive Response Recorded Date/ Time Name of Medical Power of Certified Physician'S Assistant daughter February 21, 2022 5:31pm Name of Medical Power of Certified Physician'S Assistant Murtaza April 24, 2022 1:51pm Name of Medical Power of Certified Physician'S Assistant murtaza bates daughter May 01, 2022 8:54pm Name of Medical Power of Certified Physician'S Assistant Murtaza Bates June 04, 2022 9:52am Living Will Yes June 04 9:52am Power of Certified Physician'S Assistant Yes June 04, 2022 9:52am Advance Directive Response Recorded Date/ Time Name of Medical Power of Certified Physician'S Assistant Mutraza April 24, 2022 1:51pm Name of Medical Power of Certified Physician'S Assistant murtaza bates daughter May 01, 2022 8:54pm Name of Medical Power of Certified Physician'S Assistant Murtaza Bates June 04, 2022 9:52am Living Will Yes June 04 9:52am Power of Certified Physician'S Assistant Yes June 04, 2022 9:52am Advance Directive Response Recorded Date/ Time Name of Medical Power of Certified Physician'S Assistant Murtaza Bates June 04, 2022 10:52am Living Will Yes June 04 10:52am Power of Certified Physician'S Assistant Yes June 04, 2022 10:52am Advance Directive Response Recorded Date/ Time Name of Medical Power of Certified Physician'S Assistant DAUGHTER October 28, 2022 2:34pm Living Will Yes October 28, 2022 2: 34pm Power of Certified Physician'S Assistant Yes October 28, 2022 2:34pm Advance Directive Response Recorded Date/ Time Name of Medical Power of Certified Physician'S Assistant daughter July 13, 2023 11:34am Living Will Yes July 13 11:34am Power of Certified Physician'S Assistant Yes July 13, 2023 11:34am Advance Directive Response Recorded Date/ Time Name of Medical Power of Certified Physician'S Assistant Murtaza (darshana bangura) July 13, 2023 4:31pm Living Will Yes July 13 4:31pm Power of Certified Physician'S Assistant Yes July 13, 2023 4:31pm Advance Directive Response Recorded Date/ Time Name of Medical Power of Certified Physician'S Assistant Murtaza (darshana bangura) July 13, 2023 5:31pm Living Will Yes July 13 5:31pm Power of Certified Physician'S Assistant Yes July 13, 2023 5:31pm Advance Directive Response Recorded Date/ Time Living Will Yes October 28, 2022 2: 34pm Do you have a Healthcare Power of Certified Physician'S Assistant? Yes October 28, 2022 2:34pm Living Will Yes October 11, 2024 11:40am Do you have a Healthcare Power of Certified Physician'S Assistant? Yes October 11, 2024 11:40am Name of Medical Power of Certified Physician'S Assistant murtaza October 11, 2024 11:40am Living Will Yes August 27, 2024 12:58am Do you have a Healthcare Power of Certified Physician'S Assistant? Yes August 27, 2024 12:58am Name of Medical Power of Certified Physician'S Assistant Pt unaware August 27, 2024 12:58am Advance Directive Response Recorded Date/ Time Living Will Yes October 11, 2024 4:03pm Do you have a Healthcare Power of Certified Physician'S Assistant? Yes October 11, 2024 4:03pm Name of Medical Power of Certified Physician'S Assistant murtaza bates October 11, 2024 4:03pm Living Will Yes August 27, 2024 12:58am Do you have a Healthcare Power of Certified Physician'S Assistant? Yes August 27, 2024 12:58am Name of Medical Power of Certified Physician'S Assistant Pt unaware August 27, 2024 12:58am Advance Directive Response Recorded Date/ Time Living Will Yes October 11, 2024 4:03pm Do you have a Healthcare Power of Certified Physician'S Assistant? Yes October 11, 2024 4:03pm Name of Medical Power of Certified Physician'S Assistant murtaza bates October 11, 2024 4:03pm Do you have a Healthcare Power of Certified Physician'S Assistant? No October 30, 2024 6:29pm Living Will Yes August 27, 2024 12:58am Do you have a Healthcare Power of Certified Physician'S Assistant? Yes August 27, 2024 12:58am Name of Medical Power of Certified Physician'S Assistant Pt unaware August 27, 2024 12:58am Advance Directive Response Recorded Date/ Time Living Will Yes October 11, 2024 4:03pm Do you have a Healthcare Power of Certified Physician'S Assistant? Yes October 11, 2024 4:03pm Name of Medical Power of Certified Physician'S Assistant murtaza bates October 11, 2024 4:03pm Do you have a Healthcare Power of Certified Physician'S Assistant? No October 30, 2024 6:29pm Do you have a Healthcare Power of Certified Physician'S Assistant? Yes November 19, 2024 9:23am Living Will Yes August 27, 2024 12:58am Do you have a Healthcare Power of Certified Physician'S Assistant? Yes August 27, 2024 12:58am Name of Medical Power of Certified Physician'S Assistant Pt unaware August 27, 2024 12:58am Advance Directive Response Recorded Date/ Time Living Will Yes October 11, 2024 4:03pm Do you have a Healthcare Power of Certified Physician'S Assistant? Yes October 11, 2024 4:03pm Name of Medical Power of Certified Physician'S Assistant murtaza bates October 11, 2024 4:03pm Do you have a Healthcare Power of Certified Physician'S Assistant? No October 30, 2024 6:29pm Do you have a Healthcare Power of Certified Physician'S Assistant? Yes November 19, 2024 9:23am Advance Directive Response Recorded Date/ Time Do you have a Healthcare Power of Certified Physician'S Assistant? No October 30, 2024 6:29pm Do you have a Healthcare Power of Certified Physician'S Assistant? Yes November 19, 2024 9:23am Advance Directive Response Recorded Date/ Time Do you have a Healthcare Power of Certified Physician'S Assistant? Yes November 19, 2024 9:23am Summary Purpose Additional Source Comments Source Comments (unrecognize d section and content) In the event this informatio n is protected by the Federal Confidentiality of Alcohol and Drug Abuse Patient Records regulations: The Federal rules restrict any use of the information to criminally investigate or prosecute any alcohol or drug abuse patient.[facility]In the event this information is protected by the Federal Confidentiality of Alcohol and Drug Abuse Patient Records regulations: The Federal rules restrict any use of the information to criminally investigate or prosecute any alcohol or drug abuse patient.[facility] HospitalIn the event this information is protected by the Federal Confidentiality of Alcohol and Drug Abuse Patient Records regulations: The Federal rules restrict any use of the information to criminally investigate or prosecute any alcohol or drug abuse patient.[facility] HospitalIn the event this information is protected by the Federal Confidentiality of Alcohol and Drug Abuse Patient Records regulations: The Federal rules restrict any use of the information to criminally investigate or prosecute any alcohol or drug abuse patient.[facility] HospitalIn the event this information is protected by the Federal Confidentiality of Alcohol and Drug Abuse Patient Records regulations: The Federal rules restrict any use of the information to criminally investigate or prosecute any alcohol or drug abuse patient.[facility] HospitalIn the event this information is protected by the Federal Confidentiality of Alcohol and Drug Abuse Patient Records regulations: The Federal rules restrict any use of the information to criminally investigate or prosecute any alcohol or drug abuse patient.[facility] HospitalIn the event this information is protected by the Federal Confidentiality of Alcohol and Drug Abuse Patient Records regulations: The Federal rules restrict any use of the information to criminally investigate or prosecute any alcohol or drug abuse patient.[facility] HospitalIn the event this information is protected by the Federal Confidentiality of Alcohol and Drug Abuse Patient Records regulations: The Federal rules restrict any use of the information to criminally investigate or prosecute any alcohol or drug abuse patient.[facility] HospitalIn the event this information is protected by the Federal Confidentiality of Alcohol and Drug Abuse Patient Records regulations: The Federal rules restrict any use of the information to criminally investigate or prosecute any alcohol or drug abuse patient.[facility] HospitalIn the event this information is protected by the Federal Confidentiality of Alcohol and Drug Abuse Patient Records regulations: The Federal rules restrict any use of the information to criminally investigate or prosecute any alcohol or drug abuse patient.[facility] HospitalIn the event this information is protected by the Federal Confidentiality of Alcohol and Drug Abuse Patient Records regulations: The Federal rules restrict any use of the information to criminally investigate or prosecute any alcohol or drug abuse patient.[facility] HospitalIn the event this information is protected by the Federal Confidentiality of Alcohol and Drug Abuse Patient Records regulations: The Federal rules restrict any use of the information to criminally investigate or prosecute any alcohol or drug abuse patient.[facility] HospitalIn the event this information is protected by the Federal Confidentiality of Alcohol and Drug Abuse Patient Records regulations: The Federal rules restrict any use of the information to criminally investigate or prosecute any alcohol or drug abuse patient.[facility] HospitalIn the event this information is protected by the Federal Confidentiality of Alcohol and Drug Abuse Patient Records regulations: The Federal rules restrict any use of the information to criminally investigate or prosecute any alcohol or drug abuse patient.[facility] HospitalIn the event this information is protected by the Federal Confidentiality of Alcohol and Drug Abuse Patient Records regulations: The Federal rules restrict any use of the information to criminally investigate or prosecute any alcohol or drug abuse patient.[facility] HospitalIn the event this information is protected by the Federal Confidentiality of Alcohol and Drug Abuse Patient Records regulations: The Federal rules restrict any use of the information to criminally investigate or prosecute any alcohol or drug abuse patient.[facility] HospitalIn the event this information is protected by the Federal Confidentiality of Alcohol and Drug Abuse Patient Records regulations: The Federal rules restrict any use of the information to criminally investigate or prosecute any alcohol or drug abuse patient.[facility] HospitalIn the event this information is protected by the Federal Confidentiality of Alcohol and Drug Abuse Patient Records regulations: The Federal rules restrict any use of the information to criminally investigate or prosecute any alcohol or drug abuse patient.[facility] HospitalIn the event this information is protected by the Federal Confidentiality of Alcohol and Drug Abuse Patient Records regulations: The Federal rules restrict any use of the information to criminally investigate or prosecute any alcohol or drug abuse patient.[facility] HospitalIn the event this information is protected by the Federal Confidentiality of Alcohol and Drug Abuse Patient Records regulations: The Federal rules restrict any use of the information to criminally investigate or prosecute any alcohol or drug abuse patient.[facility] HospitalIn the event this information is protected by the Federal Confidentiality of Alcohol and Drug Abuse Patient Records regulations: The Federal rules restrict any use of the information to criminally investigate or prosecute any alcohol or drug abuse patient.[facility] HospitalIn the event this information is protected by the Federal Confidentiality of Alcohol and Drug Abuse Patient Records regulations: The Federal rules restrict any use of the information to criminally investigate or prosecute any alcohol or drug abuse patient.[facility] HospitalIn the event this information is protected by the Federal Confidentiality of Alcohol and Drug Abuse Patient Records regulations: The Federal rules restrict any use of the information to criminally investigate or prosecute any alcohol or drug abuse patient.[facility] HospitalIn the event this information is protected by the Federal Confidentiality of Alcohol and Drug Abuse Patient Records regulations: The Federal rules restrict any use of the information to criminally investigate or prosecute any alcohol or drug abuse patient.[facility] HospitalIn the event this information is protected by the Federal Confidentiality of Alcohol and Drug Abuse Patient Records regulations: The Federal rules restrict any use of the information to criminally investigate or prosecute any alcohol or drug abuse patient.[facility] HospitalIn the event this information is protected by the Federal Confidentiality of Alcohol and Drug Abuse Patient Records regulations: The Federal rules restrict any use of the information to criminally investigate or prosecute any alcohol or drug abuse patient.[facility] HospitalIn the event this information is protected by the Federal Confidentiality of Alcohol and Drug Abuse Patient Records regulations: The Federal rules restrict any use of the information to criminally investigate or prosecute any alcohol or drug abuse patient.[facility] HospitalIn the event this information is protected by the Federal Confidentiality of Alcohol and Drug Abuse Patient Records regulations: The Federal rules restrict any use of the information to criminally investigate or prosecute any alcohol or drug abuse patient.[facility] HospitalIn the event this information is protected by the Federal Confidentiality of Alcohol and Drug Abuse Patient Records regulations: The Federal rules restrict any use of the information to criminally investigate or prosecute any alcohol or drug abuse patient.[facility] HospitalIn the event this information is protected by the Federal Confidentiality of Alcohol and Drug Abuse Patient Records regulations: The Federal rules restrict any use of the information to criminally investigate or prosecute any alcohol or drug abuse patient.[facility] HospitalIn the event this information is protected by the Federal Confidentiality of Alcohol and Drug Abuse Patient Records regulations: The Federal rules restrict any use of the information to criminally investigate or prosecute any alcohol or drug abuse patient.[facility] HospitalIn the event this information is protected by the Federal Confidentiality of Alcohol and Drug Abuse Patient Records regulations: The Federal rules restrict any use of the information to criminally investigate or prosecute any alcohol or drug abuse patient.[facility] HospitalIn the event this information is protected by the Federal Confidentiality of Alcohol and Drug Abuse Patient Records regulations: The Federal rules restrict any use of the information to criminally investigate or prosecute any alcohol or drug abuse patient.[facility] HospitalIn the event this information is protected by the Federal Confidentiality of Alcohol and Drug Abuse Patient Records regulations: The Federal rules restrict any use of the information to criminally investigate or prosecute any alcohol or drug abuse patient.[facility] HospitalIn the event this information is protected by the Federal Confidentiality of Alcohol and Drug Abuse Patient Records regulations: The Federal rules restrict any use of the information to criminally investigate or prosecute any alcohol or drug abuse patient.[facility] HospitalIn the event this information is protected by the Federal Confidentiality of Alcohol and Drug Abuse Patient Records regulations: The Federal rules restrict any use of the information to criminally investigate or prosecute any alcohol or drug abuse patient.[facility] HospitalIn the event this information is protected by the Federal Confidentiality of Alcohol and Drug Abuse Patient Records regulations: The Federal rules restrict any use of the information to criminally investigate or prosecute any alcohol or drug abuse patient.[facility] HospitalIn the event this information is protected by the Federal Confidentiality of Alcohol and Drug Abuse Patient Records regulations: The Federal rules restrict any use of the information to criminally investigate or prosecute any alcohol or drug abuse patient.[facility] HospitalIn the event this information is protected by the Federal Confidentiality of Alcohol and Drug Abuse Patient Records regulations: The Federal rules restrict any use of the information to criminally investigate or prosecute any alcohol or drug abuse patient.[facility] HospitalIn the event this information is protected by the Federal Confidentiality of Alcohol and Drug Abuse Patient Records regulations: The Federal rules restrict any use of the information to criminally investigate or prosecute any alcohol or drug abuse patient.[facility] HospitalIn the event this information is protected by the Federal Confidentiality of Alcohol and Drug Abuse Patient Records regulations: The Federal rules restrict any use of the information to criminally investigate or prosecute any alcohol or drug abuse patient.[facility] HospitalIn the event this information is protected by the Federal Confidentiality of Alcohol and Drug Abuse Patient Records regulations: The Federal rules restrict any use of the information to criminally investigate or prosecute any alcohol or drug abuse patient.[facility] HospitalIn the event this information is protected by the Federal Confidentiality of Alcohol and Drug Abuse Patient Records regulations: The Federal rules restrict any use of the information to criminally investigate or prosecute any alcohol or drug abuse patient.[facility] HospitalIn the event this information is protected by the Federal Confidentiality of Alcohol and Drug Abuse Patient Records regulations: The Federal rules restrict any use of the information to criminally investigate or prosecute any alcohol or drug abuse patient.[facility] HospitalIn the event this information is protected by the Federal Confidentiality of Alcohol and Drug Abuse Patient Records regulations: The Federal rules restrict any use of the information to criminally investigate or prosecute any alcohol or drug abuse patient.[facility] HospitalIn the event this information is protected by the Federal Confidentiality of Alcohol and Drug Abuse Patient Records regulations: The Federal rules restrict any use of the information to criminally investigate or prosecute any alcohol or drug abuse patient.[facility] HospitalIn the event this information is protected by the Federal Confidentiality of Alcohol and Drug Abuse Patient Records regulations: The Federal rules restrict any use of the information to criminally investigate or prosecute any alcohol or drug abuse patient.[facility] HospitalIn the event this information is protected by the Federal Confidentiality of Alcohol and Drug Abuse Patient Records regulations: The Federal rules restrict any use of the information to criminally investigate or prosecute any alcohol or drug abuse patient.[facility] HospitalIn the event this information is protected by the Federal Confidentiality of Alcohol and Drug Abuse Patient Records regulations: The Federal rules restrict any use of the information to criminally investigate or prosecute any alcohol or drug abuse patient.[facility] HospitalIn the event this information is protected by the Federal Confidentiality of Alcohol and Drug Abuse Patient Records regulations: The Federal rules restrict any use of the information to criminally investigate or prosecute any alcohol or drug abuse patient.[facility] HospitalIn the event this information is protected by the Federal Confidentiality of Alcohol and Drug Abuse Patient Records regulations: The Federal rules restrict any use of the information to criminally investigate or prosecute any alcohol or drug abuse patient.[facility] HospitalIn the event this information is protected by the Federal Confidentiality of Alcohol and Drug Abuse Patient Records regulations: The Federal rules restrict any use of the information to criminally investigate or prosecute any alcohol or drug abuse patient.[facility] HospitalIn the event this information is protected by the Federal Confidentiality of Alcohol and Drug Abuse Patient Records regulations: The Federal rules restrict any use of the information to criminally investigate or prosecute any alcohol or drug abuse patient.[facility] HospitalIn the event this information is protected by the Federal Confidentiality of Alcohol and Drug Abuse Patient Records regulations: The Federal rules restrict any use of the information to criminally investigate or prosecute any alcohol or drug abuse patient.[facility] HospitalIn the event this information is protected by the Federal Confidentiality of Alcohol and Drug Abuse Patient Records regulations: The Federal rules restrict any use of the information to criminally investigate or prosecute any alcohol or drug abuse patient.[facility] HospitalIn the event this information is protected by the Federal Confidentiality of Alcohol and Drug Abuse Patient Records regulations: The Federal rules restrict any use of the information to criminally investigate or prosecute any alcohol or drug abuse patient.[facility] HospitalIn the event this information is protected by the Federal Confidentiality of Alcohol and Drug Abuse Patient Records regulations: The Federal rules restrict any use of the information to criminally investigate or prosecute any alcohol or drug abuse patient.[facility] HospitalIn the event this information is protected by the Federal Confidentiality of Alcohol and Drug Abuse Patient Records regulations: The Federal rules restrict any use of the information to criminally investigate or prosecute any alcohol or drug abuse patient.[facility] HospitalIn the event this information is protected by the Federal Confidentiality of Alcohol and Drug Abuse Patient Records regulations: The Federal rules restrict any use of the information to criminally investigate or prosecute any alcohol or drug abuse patient.[facility] HospitalIn the event this information is protected by the Federal Confidentiality of Alcohol and Drug Abuse Patient Records regulations: The Federal rules restrict any use of the information to criminally investigate or prosecute any alcohol or drug abuse patient.[facility] HospitalIn the event this information is protected by the Federal Confidentiality of Alcohol and Drug Abuse Patient Records regulations: The Federal rules restrict any use of the information to criminally investigate or prosecute any alcohol or drug abuse patient.[facility] HospitalIn the event this information is protected by the Federal Confidentiality of Alcohol and Drug Abuse Patient Records regulations: The Federal rules restrict any use of the information to criminally investigate or prosecute any alcohol or drug abuse patient.[facility] HospitalIn the event this information is protected by the Federal Confidentiality of Alcohol and Drug Abuse Patient Records regulations: The Federal rules restrict any use of the information to criminally investigate or prosecute any alcohol or drug abuse patient.[facility] HospitalIn the event this information is protected by the Federal Confidentiality of Alcohol and Drug Abuse Patient Records regulations: The Federal rules restrict any use of the information to criminally investigate or prosecute any alcohol or drug abuse patient.[facility] HospitalIn the event this information is protected by the Federal Confidentiality of Alcohol and Drug Abuse Patient Records regulations: The Federal rules restrict any use of the information to criminally investigate or prosecute any alcohol or drug abuse patient.[facility] HospitalIn the event this information is protected by the Federal Confidentiality of Alcohol and Drug Abuse Patient Records regulations: The Federal rules restrict any use of the information to criminally investigate or prosecute any alcohol or drug abuse patient.[facility] HospitalIn the event this information is protected by the Federal Confidentiality of Alcohol and Drug Abuse Patient Records regulations: The Federal rules restrict any use of the information to criminally investigate or prosecute any alcohol or drug abuse patient.[facility] HospitalIn the event this information is protected by the Federal Confidentiality of Alcohol and Drug Abuse Patient Records regulations: The Federal rules restrict any use of the information to criminally investigate or prosecute any alcohol or drug abuse patient.[facility] HospitalIn the event this information is protected by the Federal Confidentiality of Alcohol and Drug Abuse Patient Records regulations: The Federal rules restrict any use of the information to criminally investigate or prosecute any alcohol or drug abuse patient.[facility] HospitalIn the event this information is protected by the Federal Confidentiality of Alcohol and Drug Abuse Patient Records regulations: The Federal rules restrict any use of the information to criminally investigate or prosecute any alcohol or drug abuse patient.[facility] HospitalIn the event this information is protected by the Federal Confidentiality of Alcohol and Drug Abuse Patient Records regulations: The Federal rules restrict any use of the information to criminally investigate or prosecute any alcohol or drug abuse patient.[facility] HospitalIn the event this information is protected by the Federal Confidentiality of Alcohol and Drug Abuse Patient Records regulations: The Federal rules restrict any use of the information to criminally investigate or prosecute any alcohol or drug abuse patient.[facility] HospitalIn the event this information is protected by the Federal Confidentiality of Alcohol and Drug Abuse Patient Records regulations: The Federal rules restrict any use of the information to criminally investigate or prosecute any alcohol or drug abuse patient.[facility] HospitalIn the event this information is protected by the Federal Confidentiality of Alcohol and Drug Abuse Patient Records regulations: The Federal rules restrict any use of the information to criminally investigate or prosecute any alcohol or drug abuse patient.[facility] HospitalIn the event this information is protected by the Federal Confidentiality of Alcohol and Drug Abuse Patient Records regulations: The Federal rules restrict any use of the information to criminally investigate or prosecute any alcohol or drug abuse patient.[facility] HospitalIn the event this information is protected by the Federal Confidentiality of Alcohol and Drug Abuse Patient Records regulations: The Federal rules restrict any use of the information to criminally investigate or prosecute any alcohol or drug abuse patient.[facility] HospitalIn the event this information is protected by the Federal Confidentiality of Alcohol and Drug Abuse Patient Records regulations: The Federal rules restrict any use of the information to criminally investigate or prosecute any alcohol or drug abuse patient.[facility] HospitalIn the event this information is protected by the Federal Confidentiality of Alcohol and Drug Abuse Patient Records regulations: The Federal rules restrict any use of the information to criminally investigate or prosecute any alcohol or drug abuse patient.[facility] HospitalIn the event this information is protected by the Federal Confidentiality of Alcohol and Drug Abuse Patient Records regulations: The Federal rules restrict any use of the information to criminally investigate or prosecute any alcohol or drug abuse patient.[facility] HospitalIn the event this information is protected by the Federal Confidentiality of Alcohol and Drug Abuse Patient Records regulations: The Federal rules restrict any use of the information to criminally investigate or prosecute any alcohol or drug abuse patient.[facility] HospitalIn the event this information is protected by the Federal Confidentiality of Alcohol and Drug Abuse Patient Records regulations: The Federal rules restrict any use of the information to criminally investigate or prosecute any alcohol or drug abuse patient.[facility] HospitalIn the event this information is protected by the Federal Confidentiality of Alcohol and Drug Abuse Patient Records regulations: The Federal rules restrict any use of the information to criminally investigate or prosecute any alcohol or drug abuse patient.[facility] HospitalIn the event this information is protected by the Federal Confidentiality of Alcohol and Drug Abuse Patient Records regulations: The Federal rules restrict any use of the information to criminally investigate or prosecute any alcohol or drug abuse patient.[facility] HospitalIn the event this information is protected by the Federal Confidentiality of Alcohol and Drug Abuse Patient Records regulations: The Federal rules restrict any use of the information to criminally investigate or prosecute any alcohol or drug abuse patient.[facility] HospitalIn the event this information is protected by the Federal Confidentiality of Alcohol and Drug Abuse Patient Records regulations: The Federal rules restrict any use of the information to criminally investigate or prosecute any alcohol or drug abuse patient.[facility] HospitalIn the event this information is protected by the Federal Confidentiality of Alcohol and Drug Abuse Patient Records regulations: The Federal rules restrict any use of the information to criminally investigate or prosecute any alcohol or drug abuse patient.[facility] HospitalIn the event this information is protected by the Federal Confidentiality of Alcohol and Drug Abuse Patient Records regulations: The Federal rules restrict any use of the information to criminally investigate or prosecute any alcohol or drug abuse patient.[facility] HospitalIn the event this information is protected by the Federal Confidentiality of Alcohol and Drug Abuse Patient Records regulations: The Federal rules restrict any use of the information to criminally investigate or prosecute any alcohol or drug abuse patient.[facility] HospitalIn the event this information is protected by the Federal Confidentiality of Alcohol and Drug Abuse Patient Records regulations: The Federal rules restrict any use of the information to criminally investigate or prosecute any alcohol or drug abuse patient.[facility] HospitalIn the event this information is protected by the Federal Confidentiality of Alcohol and Drug Abuse Patient Records regulations: The Federal rules restrict any use of the information to criminally investigate or prosecute any alcohol or drug abuse patient.[facility] HospitalIn the event this information is protected by the Federal Confidentiality of Alcohol and Drug Abuse Patient Records regulations: The Federal rules restrict any use of the information to criminally investigate or prosecute any alcohol or drug abuse patient.[facility] HospitalIn the event this information is protected by the Federal Confidentiality of Alcohol and Drug Abuse Patient Records regulations: The Federal rules restrict any use of the information to criminally investigate or prosecute any alcohol or drug abuse patient.[facility] HospitalIn the event this information is protected by the Federal Confidentiality of Alcohol and Drug Abuse Patient Records regulations: The Federal rules restrict any use of the information to criminally investigate or prosecute any alcohol or drug abuse patient.[facility] HospitalIn the event this information is protected by the Federal Confidentiality of Alcohol and Drug Abuse Patient Records regulations: The Federal rules restrict any use of the information to criminally investigate or prosecute any alcohol or drug abuse patient.[facility] HospitalIn the event this information is protected by the Federal Confidentiality of Alcohol and Drug Abuse Patient Records regulations: The Federal rules restrict any use of the information to criminally investigate or prosecute any alcohol or drug abuse patient.[facility] HospitalIn the event this information is protected by the Federal Confidentiality of Alcohol and Drug Abuse Patient Records regulations: The Federal rules restrict any use of the information to criminally investigate or prosecute any alcohol or drug abuse patient.[facility] HospitalIn the event this information is protected by the Federal Confidentiality of Alcohol and Drug Abuse Patient Records regulations: The Federal rules restrict any use of the information to criminally investigate or prosecute any alcohol or drug abuse patient.[facility] HospitalIn the event this information is protected by the Federal Confidentiality of Alcohol and Drug Abuse Patient Records regulations: The Federal rules restrict any use of the information to criminally investigate or prosecute any alcohol or drug abuse patient.[facility] Reason for Visit (unrecogniz ed section and content) Reason Comments Patient Update Reason Comments Medicare Wellness Exam Reason Comments [...] needed Reason Comments CARD New Patient Consult 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 Reason Comments Results Reason Onset Date Comments Refill Request 02/19/2023 Reason Onset Date Comments Recheck 3 month follow u p Immunizations 04/09/2023 Flu vaccination Reason Comments Follow Up blood pressure- elev ated and check home bp monitor Reason Comments 2 week follow up - blood pressure Reason Onset Date Comments Refill Request 05/07/2023 Reason Comments Blood Pressure Reason Comments Follow Up Reason Comments Same Day Appointment red itchy rash afte r using [place]elle wipes since Thursday Reason Comments Follow Up Reason Comments Radiology XR Reason Onset Date Comments Refill Request 04/13/2024 Reason Onset Date Comments Refill Request 05/20/2024 Erroneous encounter-disregard 05/20/2024 Pt called wrong provider for refill Reason Comments requesting lab orders for urine Reason Comments Urinary Frequency x last night Reason Onset Date Comments Refill Request 07/18/2024 Reason Comments Recheck Reason Comments Hospital F/U WAS [facility] [place] [facility] 2 week f/p Reason Comments Voiding Pressure Studies Urinary Frequency Urinary frequency, p ressure x 2 days Reason Onset Date Comments Population Health Navigation Outreach 09/28/2024 [employer] [place] Reason Comments UTI Reason Comments Patient Question ? Nauseous from RX? Reason Onset Date Comments Results 10/08/2024 Reason Comments Recheck Hosp follow up Afib Reason Onset Date Comments Population Health Navigation Outreach 11/07/2024 [employer] [place] Reason Comments PT plan of care Reason Comments [facility] SN POC Reason Onset Date Comments Transition Of Care 11/11/2024 Reason Comments ER F/U [facility] 10/30/24-11/03/24 Reason Onset Date Comments ACM KRYSTLE RN 11/23/2024 Chart review review per request of payor Reason Comments Hospital Follow Up [facility] ED 11/19/24 Reason Onset Date Comments Refill Request 2024 Reason Comments Head Congestion Head congestion, pro ductive cough 5 days Reason Onset Date Comments Results 12/15/2024 Reason Comments 1 week f/u Cough with congestio n Reason Onset Date Comments Refill Request 01/02/2025 Reason Comments 2 month f/u Care Teams (unrecognized sec tion and content) Nursery School Attendant Relationship Specialty Start Date End Date Anay Schuler MD [address] [place] [address] PCP - General Internal Medicine 05/06/16 Nursery School Attendant Relationship Specialty Start Date End Date Anay Schuler MD [address] [place] [address] PCP - General Internal Medicine 05/06/16 Nursery School Attendant Relationship Specialty Start Date End Date Anay Schuler MD [address] [place] [address] PCP - General Internal Medicine 05/06/16 Nursery School Attendant Relationship Specialty Start Date End Date Anay Schuler MD [address] [place] [address] PCP - General Internal Medicine 05/06/16 Nursery School Attendant Relationship Specialty Start Date End Date Anay Schuler MD [address] [place] [address] PCP - General Internal Medicine 05/06/16 Nursery School Attendant Relationship Specialty Start Date End Date Anay Schuler MD [address] [place] [address] PCP - General Internal Medicine 05/06/16 Nursery School Attendant Relationship Specialty Start Date End Date Anay Schuler MD [address] [place] [address] PCP - General Internal Medicine 05/06/16 Nursery School Attendant Relationship Specialty Start Date End Date Anay Schuler MD [address] [place] [address] PCP - General Internal Medicine 05/06/16 Nursery School Attendant Relationship Specialty Start Date End Date Anay Schuler MD [address] [place] [address] PCP - General Internal Medicine 05/06/16 Nursery School Attendant Relationship Specialty Start Date End Date Anay Schuler MD [address] [place] [address] PCP - General Internal Medicine 05/06/16 Nursery School Attendant Relationship Specialty Start Date End Date Anay Schuler MD [address] [place] [address] PCP - General Internal Medicine 05/06/16 Nursery School Attendant Relationship Specialty Start Date End Date Anay Schuler MD [address] [place] [address] PCP - General Internal Medicine 05/06/16 Nursery School Attendant Relationship Specialty Start Date End Date Anay Schuler MD [address] [place] [address] PCP - General Internal Medicine 05/06/16 Nursery School Attendant Relationship Specialty Start Date End Date Anay Schuler MD [address] [place] [address] PCP - General Internal Medicine 05/06/16 Nursery School Attendant Relationship Specialty Start Date End Date Anay Schuler MD [address] [facility] [place], [place] [id number] PCP - General Internal Medicine 05/06/16 Nursery School Attendant Relationship Specialty Start Date End Date Anay Schuler MD [address] [place] [address] PCP - General Internal Medicine 05/06/16 Nursery School Attendant Relationship Specialty Start Date End Date Anay Schuler MD [address] [place] [address] PCP - General Internal Medicine 05/06/16 Team Status: Active Member Role Status Dates Dr. Anay Schuler MD Family Provider Active Dr. Anay Schuler MD Primary Care Provider Active Team Status: Inactive Member Role Status Dates Dr. Anay Schuler MD Primary Care Provider, Referring Provider Active Celeste Bell ENVIRONMENTAL ISSUES INSTRUCTOR, ENVIRONMENTAL ISSUES INSTRUCTOR-C Attending Provider Active Team Status: Inactive Member Role Status Dates Dr. Anay Schuler MD Primary Care Provider, Referring Provider Active Tex Squires ENVIRONMENTAL ISSUES INSTRUCTOR, ENVIRONMENTAL ISSUES INSTRUCTOR-C Attending Provider Active Team Status: Inactive Member Role Status Dates Dr. Anay Schuler MD Primary Care Provider, Referring Provider Active Ning Spencer ENVIRONMENTAL ISSUES INSTRUCTOR, ENVIRONMENTAL ISSUES INSTRUCTOR-C Attending Provider Active Team Status: Active Member Role Status Dates Dr. Anay Schuler MD Primary Care Provider Active Dr. Woo Tucker MD Emergency Provider Active Dr. Akosua Sewell DO Admit Provider, Att ending Provider, Other Provider Active Dr. Brigido Frey MD Other Provider Active Team Status: Active Member Role Status Dates Dr. Anay Schuler MD Primary Care Provider Active Dr. Woo Tucker MD Emergency Provider Active Dr. Akosua Sewell DO Admit Provider, Other Provider Ac tive Dr. Brigido Frey MD Attending Provider, Other Prov ider Active Dr. Chong Yeboah MD Other Provider Active Team Status: Active Member Role Status Dates Dr. Anay Schuler MD Primary Care Provider Active Dr. Woo Tucker MD Emergency Provider Active Dr. Akosua Donato , DO Admit Provider, Other Provider Ac tive Dr. Brigido Frey MD Other Provider Active Dr. Chong Yeboah MD Attending Provider, Other Provid er Active Team Status: Active Member Role Status Dates Dr. Anay Schuler MD Primary Care Provider Active Dr. Woo Tucker MD Emergency Provider Active Dr. Akosua Sewell , DO Admit Provider, Other Provider Ac tive Dr. Brigido Frey MD Other Provider Active Dr. Dacia Sewell , DO Other Provider Active Dr. Sarah Nash MD Attending Provider, Other Prov ider Active Dr. Chong Yeboah MD Other Provider Active Team Status: Active Member Role Status Dates Dr. Anay Schuler MD Primary Care Provider Active Dr. Woo Tucker MD Emergency Provider Active Dr. Akosua Sewell , DO Admit Provider, Other Provider Ac tive Dr. Brigido Frey MD Other Provider Active Dr. Dacia Sewell , Other Provider Active Dr. Sarah Nash MD Other Provider Active Dr. Chong Yeboah MD Other Provider Active Dr. Pb Granado MD Attending Provider Active Team Status: Active Member Role Status Dates Dr. Anay Schuler MD Primary Care Provider Active Dr. Woo Tucker MD Emergency Provider Active Dr. Akosua Sewell , Admit Provider, Other Provider Ac tive Dr. Brigido Frey MD Attending Provider, Other Prov ider Active Dr. Dacia Sewell , Other Provider Active Dr. Sarah Nash MD Other Provider Active Dr. Chong Yeboah MD Other Provider Active Team Status: Inactive Member Role Status Dates Dr. Anay Schuler MD Primary Care Provider, Referring Provider Active Dr. Brigido Frey MD Attending Provider Active Team Status: Inactive Member Role Status Dates Dr. Anay Schuler MD Primary Care Provider Active [place] ENVIRONMENTAL ISSUES INSTRUCTOR, ENVIRONMENTAL ISSUES INSTRUCTOR-C Attending Provider Active Team Status: Inactive Member Role Status Dates Dr. Anay Schuler MD Primary Care Provider Active [place] ENVIRONMENTAL ISSUES INSTRUCTOR, ENVIRONMENTAL ISSUES INSTRUCTOR-C Attending Provider, Referring Pro vider Active Team Status: Inactive Member Role Status Dates Dr. Anay Schuler MD Primary Care Provider Active Dr. Hannah Trejo DO Attending Provider, Emergency P inna Active Team Status: Inactive Member Role Status Dates Dr. Anay Schuler MD Primary Care Provider Active Dr. Franklin Tam DO Attending Provider, Emergency Provider Active Team Status: Inactive Member Role Status Dates Dr. Anay Schuler MD Primary Care Provider Active Ning Spencer ENVIRONMENTAL ISSUES INSTRUCTOR, ENVIRONMENTAL ISSUES INSTRUCTOR-C Attending Provider Active Team Status: Inactive Member Role Status Dates Dr. Anay Schuler MD Primary Care Provider Active Dr. Woo Tucker MD Emergency Provider Active Dr. Akosua Sewell DO Admit Provider, Other Provider Ac tive Dr. Brigido Frey MD Other Provider Active Dr. Dacia Sewell DO Other Provider Active Dr. Sarah Nash MD Attending Provider Active Dr. Chong Yeboah MD Other Provider Active Team Status: Inactive Member Role Status Dates Dr. Anay Schuler MD Primary Care Provider Active Dr. Daica Sewell DO Attending Provider Active Team Status: Inactive Member Role Status Dates Dr. Anay Schuler MD Primary Care Provider Active Boby Rucker MD Attending Provider, Emergency Provid er Active Team Status: Inactive Member Role Status Dates Dr. Anay Schuler MD Primary Care Provider Active Dr. Brigido Frey MD Attending Provider Active Team Status: Active Member Role Status Dates Dr. Anay Schuler MD Primary Care Provider Active Dr. Brigido Frey MD Attending Provider Active Dr. Brigido Frey MD Referring Provider Active Team Status: Active Member Role Status Dates Dr. Anay Schuler MD Primary Care Provider Active Dr. Dacia Sewell DO Attending Provider Active Team Status: Inactive Member Role Status Dates Dr. Anay Schuler MD Primary Care Provider Active Dr. Brigido Frey MD Attending Provider Active Dr. Brigido Frey MD Referring Provider Active [employer]ery [employer] Attendant Relationship Specialty Start Date End Date Anay Schuler MD [address] [place] [address] PCP - General Internal Medicine 05/06/16 Team Status: Inactive Member Role Status Dates Dr. Anay Schuler MD Primary Care Provider Active Dr. Brigido Frey MD Attending Provider Active Dr. Brigido TINOCO MD Referring Provider Active Team Status: Active Member Role Status Dates Dr. Anay Schuler MD Primary Care Provider, Referring Provider Active Dr. Yuriy Collins DO Attending Provider, Other Prov ider Active Team Status: Inactive Member Role Status Dates Dr. Anay Schuler MD Primary Care Provider, Referring Provider Active Dr. Yuriy Collins DO Attending Provider Active Team Status: Inactive Member Role Status Dates Dr. Anay Schuler MD Primary Care Provider Active Celeste Bell ENVIRONMENTAL ISSUES INSTRUCTOR, ENVIRONMENTAL ISSUES INSTRUCTOR-C Attending Provider, Referrin g Provider Active Nursery School Attendant Relationship Specialty Start Date End Date Anay Schuler MD [address] [place] [address] PCP - General Internal Medicine 05/06/16 Nursery School Attendant Relationship Specialty Start Date End Date Anay Schuler MD [address] [place] [address] PCP - General Internal Medicine 05/06/16 Nursery School Attendant Relationship Specialty Start Date End Date Anay Schuler MD [address] [place] [address] PCP - General Internal Medicine 05/06/16 Fredis Marie S [address] [place] [address] Specialty [employer] Cardiology 01/27/23 Yuriy Collins DO [address] [place] [address] Specialty [employer] Con[employer] Gastroenterology 01/27/23 Nursery School Attendant Relationship Specialty Start Date End Date Anay Schuler MD [address] [place] [address] PCP - General Internal Medicine 05/06/16 Nirmal Marieril S [address] [place] [address] Specialty [employer] Cardiology 01/27/23 Yuriy Collins DO [address] [place] [address] Specialty [employer] Gastroenterology 01/27/23 Nursery School Attendant Relationship Specialty Start Date End Date Anay Schuler MD [address] [place] [address] PCP - General Internal Medicine 05/06/16 Fredis Marie [address] [place] [address] Specialty [employer] Cardiology 01/27/23 Yuriy Collins DO [address] [place] [address] Specialty [employer] Con[employer] Gastroenterology 01/27/23 Nursery School Attendant Relationship Specialty Start Date End Date Anay Schuler MD [address] [place] [address] PCP - General Internal Medicine 05/06/16 Fredis Marie [address] [place] [address] Specialty [employer] Con[employer] Cardiology 01/27/23 Yuriy Collins DO [address] [place] [address] Specialty [employer] Con[employer] Gastroenterology 01/27/23 Nursery School Attendant Relationship Specialty Start Date End Date Anay Schuler MD [address] [place] [address] PCP - General Internal Medicine 05/06/16 Fredis Marie MD [address] [place] [address] Specialty [employer] Con[employer] Cardiology 01/27/23 Yuriy Collins DO [address] [place] [address] Specialty [employer] Con[employer] Gastroenterology 01/27/23 Nursery School Attendant Relationship Specialty Start Date End Date Anay Schuler MD [address] [place] [address] PCP - General Internal Medicine 05/06/16 Fredis Marie MD [address] [place] [address] Specialty [employer] Con[employer]ge Cardiology 01/27/23 Yuriy Collins DO [address] [place] [address], [place] [address] Specialty [employer] [facility] Gastroenterology 01/27/23 Nursery School Attendant Relationship Specialty Start Date End Date Anay Schuler MD [address] [place] [address] PCP - General Internal Medicine 05/06/16 Fredis Marie MD [address] [place] [address] Specialty [employer] Cardiology 01/27/23 Yuriy Collins DO [address] [place] [address] Specialty [employer] Con[employer]ge Gastroenterology 01/27/23 Nursery School Attendant Relationship Specialty Start Date End Date Anay Schuler MD [address] [place] [address] PCP - General Internal Medicine 05/06/16 Fredis Marie MD [address] [place] [address] Specialty [employer] Resort Conc[employer]ge Cardiology 01/27/23 Yuriy Collins DO [address] [place] [address] Specialty [employer] Resort Conc[employer]ge Gastroenterology 01/27/23 Nursery School Attendant Relationship Specialty Start Date End Date Anay Schuler MD [address] [place] [address] PCP - General Internal Medicine 05/06/16 Nursery School Attendant Relationship Specialty Start Date End Date Anay Schuler MD [address] [place] [address] PCP - General Internal Medicine 05/06/16 Fredis Marie MD [address] [place] [address] Specialty Pet Resort Concierge Cardiology 01/27/23 Yuriy Collins DO [address] [place] [address] Specialty [employer] Resort Conc[employer]ge Gastroenterology 01/27/23 Nursery School Attendant Relationship Specialty Start Date End Date Anay Schuler MD [address] [place] [address] PCP - General Internal Medicine 05/06/16 Fredis Marie MD [address] [place] [address] Specialty Pet Resort Concierge Cardiology 01/27/23 Yuriy Collins DO [address] [place], [place] [address]- Specialty [employer] Resort Con[employer]ge Gastroenterology 01/27/23 Nursery School Attendant Relationship Specialty Start Date End Date Anay Schuler MD [address] [place] [address] PCP - General Internal Medicine 05/06/16 Fredis Marie MD [address] [place], [place] [address] Specialty [employer] Con[employer]ge Cardiology 01/27/23 Yuriy Collins DO [address] [place], [place] [id number]- Specialty [employer] Con[employer] Gastroenterology 01/27/23 Team Status: Inactive Member Role Status Dates Dr. Anay Schuler MD Primary Care Provider, Referring Provider Active Dr. Terry Basilio MD Attending Provider Active Team Status: Active Member Role Status Dates Dr. Anay Schuler MD Primary Care Provider Active Dr. Margie Kahn MD Emergency Provider Active Dr. Akosua Sewell DO Admit Provider, Attending Provide r Active Nursery School Attendant Relationship Specialty Start Date End Date Anay Schuler MD [address] [place] [address] PCP - General Internal Medicine 05/06/16 Fredis Marie MD [address] [place] [address] Specialty [employer] Resort Concierge Cardiology 01/27/23 Yuriy Collins DO [address] [place], [place] [address]- Specialty [employer] Con[employer]ge Gastroenterology 01/27/23 Team Status: Inactive Member Role Status Dates Dr. Anay Schuler MD Primary Care Provider, Referring Provider Active Faustina Hernandez PA, PA Attending Provider Active Team Status: Active Member Role Status Dates Dr. Anay Schuler MD Primary Care Provider Active Dr. Margie Kahn MD Emergency Provider Active Dr. Akosua Sewell , DO Admit Provider, Att ending Provider, Other Provider Active Team Status: Active Member Role Status Dates Dr. Anay Schuler MD Primary Care Provider Active Dr. Margie Kahn MD Emergency Provider Active Dr. Akosua Sewell , Admit Provider, Other Provider Ac tive Dr. Nirav Cain MD Attending Provider, Other Provider Active Team Status: Active Member Role Status Dates Dr. Anay Schuler MD Primary Care Provider Active Dr. Pb Granado MD Attending Provider Active Team Status: Inactive Member Role Status Dates Dr. Anay Schuler MD Primary Care Provider Active Dr. Margie Kahn MD Emergency Provider Active Dr. Akosua Sewell , Admit Provider, Other Provider Ac tive Dr. Nirav Cain MD Attending Provider Active Nursery School Attendant Relationship Specialty Start Date End Date Anay Schuler MD [address] [place], [place] [address] PCP - General Internal Medicine 05/06/16 Fredis Marie MD [address] [place], [place] [address] Specialty Pet Resort Concierge Cardiology 01/27/23 Yuriy Collins DO [address] [place], [place] [id number] Specialty Pet Resort Concierge Gastroenterology 01/27/23 Nursery School Attendant Relationship Specialty Start Date End Date Anay Schuler MD [address] [place], [place] [address] PCP - General Internal Medicine 05/06/16 Fredis Marie MD [address] [place] [address] Specialty Pet Resort Concierge Cardiology 01/27/23 Yuriy Collins DO [address] [place] [address] Specialty Pet Resort Concierge Gastroenterology 01/27/23 Nursery School Attendant Relationship Specialty Start Date End Date Anay Schuler MD [address] [place] [address] PCP - General Internal Medicine 05/06/16 Fredis Marie MD [address] [place] [address] Specialty Pet Resort Concierge Cardiology 01/27/23 Yuriy Collins DO [address] [place] [address] Specialty Pet Resort Concierge Gastroenterology 01/27/23 Nursery School Attendant Relationship Specialty Start Date End Date Anay Schuler MD [address] [place] [address] PCP - General Internal Medicine 05/06/16 Fredis Marie MD [address] [place] [address] Specialty Pet Resort Concierge Cardiology 01/27/23 Yuriy Collins DO [address] [place] [address] Specialty Pet Resort Concierge Gastroenterology 01/27/23 Nursery School Attendant Relationship Specialty Start Date End Date Anay Schuler MD [address] [place] [address] PCP - General Internal Medicine 05/06/16 Nursery School Attendant Relationship Specialty Start Date End Date Anay Schuler MD [address] [place] [address] PCP - General Internal Medicine 05/06/16 Nursery School Attendant Relationship Specialty Start Date End Date Anay Schuler MD [address] [place] [address] PCP - General Internal Medicine 05/06/16 Nursery School Attendant Relationship Specialty Start Date End Date Anay Schuler MD [address] [place] [address] PCP - General Internal Medicine 05/06/16 Fredis Marie MD [address] [place] [address] Specialty Pet Resort Concierge Cardiology 01/27/23 Yuriy Collins DO [address] [place] [address] Specialty [employer] Resort Conc[employer]ge Gastroenterology 01/27/23 Nursery School Attendant Relationship Specialty Start Date End Date Anay Schuler MD [address] [place] [address] PCP - General Internal Medicine 05/06/16 Fredis Marie MD [address] [place] [address] Specialty [employer] Resort Concierge Cardiology 01/27/23 Yuriy Collins DO [address] [place] [address] Specialty Pet Resort Conc[employer]ge Gastroenterology 01/27/23 Nursery School Attendant Relationship Specialty Start Date End Date Anay Schuler MD [address] [place] [address] PCP - General Internal Medicine 05/06/16 Fredis Marie MD [address] [address] Specialty Pet Resort Concierge Cardiology 01/27/23 Yuriy Collins DO [address] [address] Specialty [employer] Resort Conc[employer]ge Gastroenterology 01/27/23 Megha Mahoney PA-C [address] [place] [address] [facility] 06/05/24 Silvio Drake APRN.CNP [address] [place] [address] [facility] Internal [facility] 06/05/24 Kaylynn Rios PA-C [address] [facility] [place] [address] [facility] 06/05/24 Nursery School Attendant Relationship Specialty Start Date End Date Anay Schuler MD [address] [facility] [place] [address] PCP - General Internal Medicine 05/06/16 Fredis Marie MD [address] [address] Specialty [employer] Con[employer]ge Cardiology 01/27/23 Yuriy Collins DO [address] [place] [address] Specialty [employer] Conc[employer]ge Gastroenterology 01/27/23 Megha Mahoney PA-C [address] [place] [address] [facility] 06/05/24 Silvio Drake APRN.BILLING AND ACCOUNTING STAFF ASSISTANT [address] [place] [address] [facility] Internal Medicine 06/05/24 Kaylynn Rios PA-C [address] [place] [address] [facility] 06/05/24 Nursery School Attendant Relationship Specialty Start Date End Date Anay Schuler MD [address] [place] [address] PCP - General Internal Medicine 05/06/16 Fredis Marie MD [address] [facility] [address] [place] [address] Specialty [employer] Con[employer]ge Cardiology 01/27/23 Yuriy Collins DO [address] [place] [address] Specialty [facility] Gastroenterology 01/27/23 Megha Mahoney PA-C [address] [place] [address] [facility] 06/05/24 Silvio Drake APRN.BILLING AND ACCOUNTING STAFF ASSISTANT [address] [facility] [address] [facility] Internal [facility] 06/05/24 Kaylynn Rios PA-C [address] [place] [address] [facility] 06/05/24 Nursery School Attendant Relationship Specialty Start Date End Date Anay Schuler MD [address] [place] [address] PCP - General Internal Medicine 05/06/16 Fredis Marie MD [address] [facility] [address] [place] [address] Specialty [employer] Concierge Cardiology 01/27/23 Yuryi Collins DO [address] [facility] [address] [place] [address] Specialty [employer] Conc[employer]ge Gastroenterology 01/27/23 Megha Mahonye PA-C [address] [place] [address] [facility] 06/05/24 Silvio Drake APRN.BILLING AND ACCOUNTING STAFF ASSISTANT [address] [facility] [address] [facility] Internal [facility] 06/05/24 Kaylynn Rios PA-C [address] [place] [address] [facility] 06/05/24 Nursery School Attendant Relationship Specialty Start Date End Date Anay Schuler MD [address] [place] [address] PCP - General Internal Medicine 05/06/16 Fredis Marie MD [address] [place] [address] Specialty [employer] Con[employer] Cardiology 01/27/23 Yuriy Collins DO [address] [place] [address] Specialty [employer] Gastroenterology 01/27/23 Megha Mahoney PA-C [address] [place] [address] [employer]eeper Family [facility] 06/05/24 Silvio Drake APRN.BILLING AND ACCOUNTING STAFF ASSISTANT [address] [place] [place] [address] [facility] Internal Medicine 06/05/24 Kaylynn Rios PA-C [address] [facility] [address] [facility] 06/05/24 Nursery School Attendant Relationship Specialty Start Date End Date Anay Schuler MD [address] [place] [address] PCP - General Internal Medicine 05/06/16 Fredis Marie MD [address] [place] [address] Specialty [employer] [facility] Cardiology 01/27/23 Yuriy Collins DO [address] [place] [address] Specialty [facility] [employer] [facility] Gastroenterology 01/27/23 Silvio Drake APRN.BILLING AND ACCOUNTING STAFF ASSISTANT [address] [facility] [place] [address] [facility] [facility] Internal Medicine 06/05/24 Nursery School Attendant Relationship Specialty Start Date End Date Anay Schuler MD [address] [place] [address] PCP - General Internal Medicine 05/06/16 Fredis Marie MD [address] [place] [address] Specialty [facility] [employer] [facility] Cardiology 01/27/23 Yuriy Collins DO [address] [place] [address] Specialty [facility] [employer] [facility] Gastroenterology 01/27/23 Silvio Drake APRN.BILLING AND ACCOUNTING STAFF ASSISTANT [address] [facility] [place] [address] [employer] Internal Medicine 06/05/24 Nursery School Attendant Relationship Specialty Start Date End Date Anay Schuler MD [address] [place] [address] PCP - General Internal Medicine 05/06/16 Fredis Marie MD [address] [place] [address] Specialty [employer] Con[employer]ge Cardiology 01/27/23 Yuriy Collins DO [address] [place] [address] Specialty [employer] [facility] Gastroenterology 01/27/23 Silvio Drake APRN.BILLING AND ACCOUNTING STAFF ASSISTANT [address] [facility] [place] [address] [employer] Internal Medicine 06/05/24 Nursery School Attendant Relationship Specialty Start Date End Date Anay Schuler MD [address] [place] [address] PCP - General Internal Medicine 05/06/16 Fredis Marie MD [address] [place] [address] Specialty [employer] [facility] Cardiology 01/27/23 Yuriy Collins DO [address] [place] [address] Specialty [facility] [employer] [facility] Gastroenterology 01/27/23 Silvio Drake APRN.BILLING AND ACCOUNTING STAFF ASSISTANT [address] [place] [address] [employer] [facility] Internal Medicine 06/05/24 Nursery School Attendant Relationship Specialty Start Date End Date Anay Schuler MD [address] [place] [address] PCP - General Internal Medicine 05/06/16 Fredis Marie MD [address] [place] [address] Specialty [employer] [facility] Cardiology 01/27/23 Yuriy Collins DO [address] [place] [address] Specialty [facility] Gastroenterology 01/27/23 Silvio Drake APRN.BILLING AND ACCOUNTING STAFF ASSISTANT [address] [place] [address] [facility] Internal [facility] 06/05/24 Nursery School Attendant Relationship Specialty Start Date End Date Anay Schuler MD [address] [place], [place] [address] PCP - General Internal Medicine 05/06/16 Fredis Marie MD [address] [place], [place] [address] Specialty [facility] Cardiology 01/27/23 Yuriy Collins DO [address] [place], [place] [address] Specialty [facility] Gastroenterology 01/27/23 Silvio Drake APRN.BILLING AND ACCOUNTING STAFF ASSISTANT [address] [place], [place] [id number] [facility] Internal Medicine 06/05/24 Team Status: Active Member Role Status Dates Dr. Anay Schuler MD Primary Care Provider Active Team Status: Inactive Member Role Status Dates Dr. Anay Schuler MD Primary Care Provider Active Start: June 14, 2024 End: June 14, 2024 Dr. Anay Schuler MD Referring Provider Active Start: June 14, 2024 End: June 14, 2024 Dr. Terry Basilio MD Attending Provider Active Sta rt: June 14, 2024 End: June 14, 2024 Team Status: Inactive Member Role Status Dates Dr. Anay Schuler MD Primary Care Provider Active Start: August 26, 2024 End: August 27, 2024 Dr. Vincent Chan MD Attending Provider Active Start: August 26, 2024 End: August 27, 2024 Dr. Vincent Chan MD Emergency Provider Active Start: August 26, 2024 End: August 27, 2024 Team Status: Active Member Role Status Dates Dr. Anay Schuler MD Primary Care Provider Active Start: October 11, 2024 Dr. Vincent Chan MD Emergency Provider Active Start: October 11, 2024 Dr. Inocencia Long MD Attending Provider Active Start: October 11, 2024 Team Status: Active Member Role Status Dates Dr. Anay Schuler MD Primary Care Provider Active Start: October 11, 2024 Dr. Vincent Chan MD Emergency Provider Active Start: October 11, 2024 Dr. Inocencia Long MD Admit Provider Active St art: October 11, 2024 Dr. Inocencia Long MD Attending Provider Active Start: October 11, 2024 Team Status: Inactive Member Role Status Dates Dr. Anay Schuler MD Primary Care Provider Active Start: October 11, 2024 End: October 13, 2024 Dr. Vincent Chan MD Emergency Provider Active Start: October 11, 2024 End: October 13, 2024 Dr. Inocencia Long MD Admit Provider Active St art: October 11, 2024 End: October 13, 2024 Dr. Inocencia Long MD Other Provider Active St art: October 11, 2024 End: October 13, 2024 Dr. Jake Kingston MD Other Provider Active St art: October 11, 2024 End: October 13, 2024 Dr. Nirav Cain MD Attending Provider Active Start: October 11, 2024 End: October 13, 2024 Team Status: Active Member Role Status Dates Dr. Anay Schuler MD Primary Care Provider Active Start: October 11, 2024 Dr. Vincent Chan MD Emergency Provider Active Start: October 11, 2024 Dr. Inocencia Long MD Admit Provider Active St art: October 11, 2024 Dr. Inocencia Long MD Other Provider Active St art: October 11, 2024 Dr. Jake Kingston MD Attending Provider Active Start: October 11, 2024 Dr. Jake Kingston MD Other Provider Active St art: October 11, 2024 Team Status: Active Member Role Status Dates Dr. Anay Schuler MD Primary Care Provider Active Start: October 12, 2024 Dr. Vincent Chan MD Emergency Provider Active Start: October 12, 2024 Dr. Inocencia Long MD Admit Provider Active St art: October 12, 2024 Dr. Inocencia Long MD Other Provider Active St art: October 12, 2024 Dr. Jake Kingston MD Attending Provider Active Start: October 12, 2024 Dr. Jake Kingston MD Other Provider Active St art: October 12, 2024 Dr. Nirav Cain MD Other Provider Active Start: October 12, 2024 Team Status: Active Member Role Status Dates Dr. Anay Schuler MD Primary Care Provider Active Start: October 12, 2024 Dr. Fredis Marie MD Attending Provider Active S tart: October 12, 2024 Team Status: Active Member Role Status Dates Dr. Anay Schuler MD Primary Care Provider Active Start: October 12, 2024 Dr. Vincent Chan MD Emergency Provider Active Start: October 12, 2024 Dr. Inocencia Long MD Admit Provider Active St art: October 12, 2024 Dr. Inocencia Long MD Other Provider Active St art: October 12, 2024 Dr. Jake Kingston MD Other Provider Active St art: October 12, 2024 Dr. Nirav Cain MD Attending Provider Active Start: October 12, 2024 Dr. Nirav Cain MD Other Provider Active Start: October 12, 2024 Team Status: Active Member Role Status Dates Dr. Anay Schuler MD Primary Care Provider Active Start: October 13, 2024 Dr. Vincent Chan MD Emergency Provider Active Start: October 13, 2024 Dr. Inocencia Long MD Admit Provider Active St art: October 13, 2024 Dr. Inocencia Long MD Other Provider Active St art: October 13, 2024 Dr. Jake Kingston MD Attending Provider Active Start: October 13, 2024 Dr. Jake Kingston MD Other Provider Active St art: October 13, 2024 Dr. Nirav Cain MD Other Provider Active Start: October 13, 2024 Nursery School Attendant Relationship Specialty Start Date End Date Anay Schuler MD [address] [place] [address] PCP - General Internal Medicine 05/06/16 Fredis Marie MD [address] [address] Specialty Pet Resort Concierge Cardiology 01/27/23 Yuriy Collins DO [address] [place], [place] [address] Specialty Pet Resort Concierge Gastroenterology 01/27/23 Silvio Drake APRN.BILLING AND ACCOUNTING STAFF ASSISTANT [address] [place] [place] [address] Boathouse Keeper Internal Medicine 06/05/24 Dacia Pitt, milk inspector Portable Canteen Operator 10/14/24 Nursery School Attendant Relationship Specialty Start Date End Date Anay Schuler MD [address] [facility] [address] PCP - General Internal Medicine 05/06/16 Fredis Marie MD [address] [facility] [address] [place] [address] Specialty Pet Resort Concierge Cardiology 01/27/23 Yuriy Collins DO [address] [facility] [address] [place] [address] Specialty Pet Resort Concierge Gastroenterology 01/27/23 Silvio Drake APRN.BILLING AND ACCOUNTING STAFF ASSISTANT [address] [place] [place] [address] Boathouse Keeper Internal Medicine 06/05/24 Dacia Pitt, milk inspector Portable Canteen Operator 10/14/24 Nursery School Attendant Relationship Specialty Start Date End Date Anay Schuler MD [address] [facility] [address] PCP - General Internal Medicine 05/06/16 Fredis Marie MD [address] [facility] [address] [place] [address] Specialty Pet Resort Concierge Cardiology 01/27/23 Yuriy Collins DO [address] [place], [place] [address] Specialty Pet Resort Concierge Gastroenterology 01/27/23 Silvio Drake APRN.BILLING AND ACCOUNTING STAFF ASSISTANT [address] [facility] [place] [address] Boathouse Keeper Internal Medicine 06/05/24 Dacia Pitt, milk inspector Portable Canteen Operator 10/14/24 Nursery School Attendant Relationship Specialty Start Date End Date Anay Schuler MD [address] [place] [address] PCP - General Internal Medicine 05/06/16 Fredis Marie MD [address] [place] [address] Specialty Pet Resort Concierge Cardiology 01/27/23 Yuriy Collins DO [address] [place] [address] Specialty Pet Resort Concierge Gastroenterology 01/27/23 Megha Mahoney PA-C [address] [place] [address] Boathouse Keeper Family Medicine 06/05/24 09/18/24 Silvio Drake APRN.BILLING AND ACCOUNTING STAFF ASSISTANT [address] [facility] [address] Boathouse Keeper Internal Medicine 06/05/24 Kaylynn Rios PA-C [address] [place] [address] Boathouse Keeper Family Medicine 06/05/24 09/18/24 Dacia Pitt RN Primary Care Portable Canteen Operator 10/14/24 Team Status: Active Member Role Status Dates Dr. Anay Schuler MD Primary Care Provider Active Start: October 13, 2024 Dr. Vincent Chan MD Emergency Provider Active Start: October 13, 2024 Dr. Inocencia Long MD Admit Provider Active St art: October 13, 2024 Dr. Inocencia Long MD Other Provider Active St art: October 13, 2024 Dr. Jake Kingston MD Other Provider Active St art: October 13, 2024 Dr. Nirav Cain MD Attending Provider Active Start: October 13, 2024 Dr. Nirav Cain MD Other Provider Active Start: October 13, 2024 Team Status: Inactive Member Role Status Dates Dr. Anay Schuler MD Primary Care Provider Active Start: October 24, 2024 End: October 24, 2024 Dr. Anay Schuler MD Referring Provider Active Start: October 24, 2024 End: October 24, 2024 Ning Spencer ENVIRONMENTAL ISSUES INSTRUCTOR, ENVIRONMENTAL ISSUES INSTRUCTOR-C Attending Provider Active Start: October 24, 2024 End: October 24, 2024 Team Status: Inactive Member Role Status Dates Dr. Anay Schuler MD Primary Care Provider Active Start: October 24, 2024 End: October 24, 2024 Ning Spencer ENVIRONMENTAL ISSUES INSTRUCTOR, ENVIRONMENTAL ISSUES INSTRUCTOR-C Attending Provider Active Start: October 24, 2024 End: October 24, 2024 Ning Spencer ENVIRONMENTAL ISSUES INSTRUCTOR, ENVIRONMENTAL ISSUES INSTRUCTOR-C Referring Provider Active Start: October 24, 2024 End: October 24, 2024 Team Status: Inactive Member Role Status Dates Dr. Anay Schuler MD Primary Care Provider Active Start: October 27, 2024 End: October 27, 2024 Faustina Hernandez PA, PA Attending Provider Active Start: October 27, 2024 End: October 27, 2024 Faustina Hernandez PA, PA Referring Provider Active Start: October 27, 2024 End: October 27, 2024 Team Status: Active Member Role Status Dates Dr. Anay Schuler MD Primary Care Provider Active Start: October 30, 2024 Dr. Jose Mcgraw DO Emergency Provider Active Start: October 30, 2024 Dr. Nirav Cain MD Admit Provider Active Start: October 30, 2024 Dr. Nirav Cain MD Other Provider Active Start: October 30, 2024 Dr. Pb Granado MD Other Provider Active Star t: October 30, 2024 Dr. Rory Trevizo MD Attending Provider Active Start: October 30, 2024 Team Status: Active Member Role Status Dates Dr. Anay Schuler MD Primary Care Provider Active Start: October 31, 2024 Dr. Jose Mcgraw DO Emergency Provider Active Start: October 31, 2024 Dr. Nirav Cain MD Admit Provider Active Start: October 31, 2024 Dr. Nirav Cain MD Other Provider Active Start: October 31, 2024 Dr. Pb Granado MD Other Provider Active Star t: October 31, 2024 Dr. Rory Trevizo MD Attending Provider Active Start: October 31, 2024 Dr. Rory Trevizo MD Other Provider Active Sta rt: October 31, 2024 Team Status: Active Member Role Status Dates Dr. Anay Schuler MD Primary Care Provider Active Start: October 31, 2024 Dr. Jose Mcgraw DO Emergency Provider Active Start: October 31, 2024 Dr. Nirav Cain MD Admit Provider Active Start: October 31, 2024 Dr. Nirav Cain MD Other Provider Active Start: October 31, 2024 Dr. Pb Granado MD Other Provider Active Star t: October 31, 2024 Dr. Rory Trevizo MD Other Provider Active Sta rt: October 31, 2024 Dr. Jake Kingston MD Attending Provider Active Start: October 31, 2024 Team Status: Active Member Role Status Dates Dr. Anay Schuler MD Primary Care Provider Active Start: October 31, 2024 Dr. Talia David MD Attending Provider Active Start: October 31, 2024 Team Status: Active Member Role Status Dates Dr. Anay Schuler MD Primary Care Provider Active Start: November 01, 2024 Dr. Jose Mcgraw DO Emergency Provider Active Start: November 01, 2024 Dr. Nirav Cain MD Admit Provider Active Start: November 01, 2024 Dr. Nirav Cain MD Other Provider Active Start: November 01, 2024 Dr. Pb Granado MD Other Provider Active Star t: November 01, 2024 Dr. Rory Trevizo MD Other Provider Active Sta rt: November 01, 2024 Dr. Jake Kingston MD Attending Provider Active Start: November 01, 2024 Team Status: Active Member Role Status Dates Dr. Anay Schuler MD Primary Care Provider Active Start: November 01, 2024 Dr. Jose Mcgraw DO Emergency Provider Active Start: November 01, 2024 Dr. Nirav Cain MD Admit Provider Active Start: November 01, 2024 Dr. Nirav Cain MD Other Provider Active Start: November 01, 2024 Dr. Pb Granado MD Other Provider Active Star t: November 01, 2024 Dr. Rory Trevizo MD Attending Provider Active Start: November 01, 2024 Dr. Rory Trevizo MD Other Provider Active Sta rt: November 01, 2024 Team Status: Inactive Member Role Status Dates Dr. Anay Schuler MD Primary Care Provider Active Start: October 30, 2024 End: November 03, 2024 Dr. Jose Mcgraw DO Emergency Provider Active Start: October 30, 2024 End: November 03, 2024 Dr. Nirav Cain MD Admit Provider Active Start: October 30, 2024 End: November 03, 2024 Dr. Nirav Cain MD Other Provider Active Start: October 30, 2024 End: November 03, 2024 Dr. Pb Granado MD Other Provider Active Star t: October 30, 2024 End: November 03, 2024 Dr. Rory Trevizo MD Attending Provider Active Start: October 30, 2024 End: November 03, 2024 Team Status: Active Member Role Status Dates Dr. Anay Schuler MD Primary Care Provider Active Start: November 02, 2024 Dr. Jose Mcgraw DO Emergency Provider Active Start: November 02, 2024 Dr. Nirav Cain MD Admit Provider Active Start: November 02, 2024 Dr. Nirav Cain MD Other Provider Active Start: November 02, 2024 Dr. Pb Granado MD Other Provider Active Star t: November 02, 2024 Dr. Rory Trevizo MD Other Provider Active Sta rt: November 02, 2024 Dr. Jake Kingston MD Attending Provider Active Start: November 02, 2024 Team Status: Active Member Role Status Dates Dr. Anay Schuler MD Primary Care Provider Active Start: November 02, 2024 Dr. Jose Mcgraw DO Emergency Provider Active Start: November 02, 2024 Dr. Nirav Cain MD Admit Provider Active Start: November 02, 2024 Dr. Nirav Cain MD Other Provider Active Start: November 02, 2024 Dr. Pb Granado MD Other Provider Active Star t: November 02, 2024 Dr. Rory Trevizo MD Attending Provider Active Start: November 02, 2024 Dr. Rory Trevizo MD Other Provider Active Sta rt: November 02, 2024 Team Status: Active Member Role Status Dates Dr. Anay Schuler MD Primary Care Provider Active Start: November 03, 2024 Dr. Jose Mcgraw DO Emergency Provider Active Start: November 03, 2024 Dr. Nirav Cain MD Admit Provider Active Start: November 03, 2024 Dr. Nirav Cain MD Other Provider Active Start: November 03, 2024 Dr. Pb Granado MD Other Provider Active Star t: November 03, 2024 Dr. Rory Trevizo MD Other Provider Active Sta rt: November 03, 2024 Dr. Jake Kingston MD Attending Provider Active Start: November 03, 2024 Team Status: Active Member Role Status Dates Dr. Anay Schuler MD Primary Care Provider Active Start: November 03, 2024 Dr. Jose Mcgraw DO Emergency Provider Active Start: November 03, 2024 Dr. Nirav Cain MD Admit Provider Active Start: November 03, 2024 Dr. Nirav Cain MD Other Provider Active Start: November 03, 2024 Dr. Pb Granado MD Other Provider Active Star t: November 03, 2024 Dr. Rory Trevizo MD Attending Provider Active Start: November 03, 2024 Dr. Rory Trevizo MD Other Provider Active Sta rt: November 03, 2024 Nursery School Attendant Relationship Specialty Start Date End Date Anay Schuler MD [address] [place] [address] PCP - General Internal Medicine 05/06/16 Fredis Marie MD [address] [place] [address] Specialty Pet Resort Concierge Cardiology 01/27/23 Yuriy Collins DO [address] [place] [address] Specialty Pet Resort Concierge Gastroenterology 01/27/23 Silvio Drake APRN.BILLING AND ACCOUNTING STAFF ASSISTANT [address] [facility] [place] [address] Boathouse Keeper Internal Medicine 06/05/24 Dacia Pitt RN Primary Care Portable Canteen Operator 10/14/24 11/04/24 Dacia Pitt RN 11/04/24 Nursery School Attendant Relationship Specialty Start Date End Date Anay Schuler MD [address] [facility] [address] PCP - General Internal Medicine 05/06/16 Fredis Marie MD [address] [place] [address] Specialty Pet Resort Concierge Cardiology 01/27/23 Yuriy Collins DO [address] [place] [address] Specialty Pet Resort Concierge Gastroenterology 01/27/23 Silvio Drake APRN.BILLING AND ACCOUNTING STAFF ASSISTANT [address] [facility] [place] [address] Boathouse Keeper Internal Medicine 06/05/24 Dacia Pitt RN Primary Care Portable Canteen Operator 10/14/24 11/04/24 Dacia Pitt, RN 11/04/24 Nursery School Attendant Relationship Specialty Start Date End Date Anay Schuler MD [address] [facility], [place] [address] PCP - General Internal Medicine 05/06/16 Fredis Marie MD [address] [place], [place] [address] Specialty Pet Resort Concierge Cardiology 01/27/23 Yuriy Collins DO [address] [place], [place] [id number] Specialty Pet Resort Concierge Gastroenterology 01/27/23 Silvio Drake APRN.CNP [address] [facility] [place] [address] Boathouse Keeper Internal Medicine 06/05/24 Dacia Pitt, RN 11/04/24 Team Status: Active Member Role Status Dates Dr. Anay Schuler MD Primary Care Provider Active Start: October 27, 2024 Dr. Jake Kingston MD Attending Provider Active Start: October 27, 2024 Faustina Hernandez PA, PA Referring Provider Active Start: October 27, 2024 Team Status: Active Member Role Status Dates Dr. Anay Schuler MD Primary Care Provider Active Start: November 08, 2024 Dr. Jake Kingston MD Attending Provider Active Start: November 08, 2024 Dr. Jake Kingston MD Referring Provider Active Start: November 08, 2024 Team Status: Inactive Member Role Status Dates Dr. Anay Schuler MD Primary Care Provider Active Start: November 08, 2024 End: November 08, 2024 Dr. Anay Schuler MD Referring Provider Active Start: November 08, 2024 End: November 08, 2024 Dr. Terry Basilio MD Attending Provider Active Sta rt: November 08, 2024 End: November 08, 2024 Nursery School Attendant Relationship Specialty Start Date End Date Anay Schuler MD [address] [place] [address] PCP - General Internal Medicine 05/06/16 Fredis Marie MD [address] [place] [address] Specialty Pet Resort Concierge Cardiology 01/27/23 Yuriy Collins DO [address] [place] [address] Specialty Pet Resort Concierge Gastroenterology 01/27/23 Silvio Drake APRN.BILLING AND ACCOUNTING STAFF ASSISTANT [address] [place] [address] Boathouse Keeper Internal Medicine 06/05/24 Dacia Pitt RN 11/04/24 Nursery School Attendant Relationship Specialty Start Date End Date Anay Schuler MD [address] [place] [address] PCP - General Internal Medicine 05/06/16 Fredis Marie MD [address] [place] [address] Specialty Pet Resort Concierge Cardiology 01/27/23 Yuriy Collins DO [address] [place] [address] Specialty Pet Resort Concierge Gastroenterology 01/27/23 Silvio Drake APRN.BILLING AND ACCOUNTING STAFF ASSISTANT [address] [place] [address] Boathouse Keeper Internal Medicine 06/05/24 Dacia Pitt RN 11/04/24 Team Status: Inactive Member Role Status Dates Dr. Anay Schuler MD Primary Care Provider Active Start: November 11, 2024 End: November 11, 2024 Dr. Anay Schuler MD Referring Provider Active Start: November 11, 2024 End: November 11, 2024 Ning Spencer ENVIRONMENTAL ISSUES INSTRUCTOR, ENVIRONMENTAL ISSUES INSTRUCTOR-C Attending Provider Active Start: November 11, 2024 End: November 11, 2024 Team Status: Inactive Member Role Status Dates Dr. Anay Schuler MD Primary Care Provider Active Start: November 08, 2024 End: November 08, 2024 Dr. Jake Kingston MD Attending Provider Active Start: November 08, 2024 End: November 08, 2024 Dr. Jake Kingston MD Referring Provider Active Start: November 08, 2024 End: November 08, 2024 Nursery School Attendant Relationship Specialty Start Date End Date Anay Schuler MD [address] [facility], [place] [address] PCP - General Internal Medicine 05/06/16 Fredis Marie MD [address] [facility] [address] [place] [address] Specialty Pet Resort Concierge Cardiology 01/27/23 Yuriy Collins DO [address] [facility] [address] [place] [address] Specialty Pet Resort Concierge Gastroenterology 01/27/23 Silvio Drake APRN.CNP [address] [facility] [address] Boathouse Keeper Internal Medicine 06/05/24 Dacia Pitt, RN 11/04/24 Nursery School Attendant Relationship Specialty Start Date End Date Anay Schuler MD [address] [facility], [place] [address] PCP - General Internal Medicine 05/06/16 Fredis Marie MD [address] [facility] [address] [place] [address] Specialty Pet Resort Concierge Cardiology 01/27/23 Yuriy Collins DO [address] [facility] [address] [place] [address] Specialty Pet Resort Concierge Gastroenterology 01/27/23 Silvio Darke APRN.BILLING AND ACCOUNTING STAFF ASSISTANT [address] [facility] [place] [address] Boathouse Keeper Internal Medicine 06/05/24 Dacia Pitt, RN 11/04/24 Nursery School Attendant Relationship Specialty Start Date End Date Anay Schuler MD [address] [place] [address] PCP - General Internal Medicine 05/06/16 Fredis Marie MD [address] [facility] [address] [place] [address] Specialty Pet Resort Concierge Cardiology 01/27/23 Yuriy Collins DO [address] [place] [address] Specialty Pet Resort Concierge Gastroenterology 01/27/23 Megha Mahoney PA-C [address] [place] [address] Boathouse Keeper Family Medicine 06/05/24 09/18/24 Silvio Drake APRN.BILLING AND ACCOUNTING STAFF ASSISTANT [address] [facility] [place] [address] Boathouse Keeper Internal Medicine 06/05/24 Kaylynn Rios PA-C [address] [place] [address] Boathouse Keeper Family Medicine 06/05/24 09/18/24 Dacia Pitt, milk inspector Portable Canteen Operator 10/14/24 11/04/24 Dacia Pitt, RN 11/04/24 Team Status: Inactive Member Role Status Dates Dr. Anay Schuler MD Primary Care Provider Active Start: November 15, 2024 End: November 15, 2024 Dr. Anay Schuler MD Referring Provider Active Start: November 15, 2024 End: November 15, 2024 Dr. Fredis Marie MD Attending Provider Active S tart: November 15, 2024 End: November 15, 2024 Nursery School Attendant Relationship Specialty Start Date End Date Anay Schuler MD [address] [place], [place] [address] PCP - General Internal Medicine 05/06/16 Fredis Marie MD [address] [place] [address] Specialty Pet Resort Concierge Cardiology 01/27/23 Yuriy Collins DO [address] [place] [address] Specialty Pet Resort Concierge Gastroenterology 01/27/23 Silvio Drake APRN.CNP [address] [facility] [address] Boathouse Keeper Internal Medicine 06/05/24 Dacia Pitt, RN 11/04/24 Team Status: Inactive Member Role Status Dates Dr. Anay Schuler MD Primary Care Provider Active Start: November 19, 2024 End: November 19, 2024 Dr. Beto Keene DO Attending Provider Active Start: November 19, 2024 End: November 19, 2024 Dr. Beto Keene DO Emergency Provider Active Start: November 19, 2024 End: November 19, 2024 Team Status: Inactive Member Role Status Dates Dr. Anay Schuler MD Primary Care Provider Active Start: November 25, 2024 End: November 25, 2024 Dr. Anay cShuler MD Referring Provider Active Start: November 25, 2024 End: November 25, 2024 Ning Spencer ENVIRONMENTAL ISSUES INSTRUCTOR, ENVIRONMENTAL ISSUES INSTRUCTOR-C Attending Provider Active Start: November 25, 2024 End: November 25, 2024 Nursery School Attendant Relationship Specialty Start Date End Date Anay Schuler MD [address] [place] [address] PCP - General Internal Medicine 05/06/16 Fredis Marie MD [address] [place], [place] [address] Specialty Pet Resort Concierge Cardiology 01/27/23 Yuriy Collins DO [address] [place] [address] Specialty Pet Resort Concierge Gastroenterology 01/27/23 Silvio Drake APRN.BILLING AND ACCOUNTING STAFF ASSISTANT [address] [place] [address] Boathouse Keeper Internal Medicine 06/05/24 Dacia Pitt, milk inspector Portable Canteen Operator 10/14/24 11/04/24 Dacia Pitt, RN 11/04/24 Nursery School Attendant Relationship Specialty Start Date End Date Anay Schuler MD [address] [place] [address] PCP - General Internal Medicine 05/06/16 Fredis Marie MD [address] [place], [place] [address] Specialty Pet Resort Concierge Cardiology 01/27/23 Yuriy Collins DO [address] [place] [address] Specialty Pet Resort Concierge Gastroenterology 01/27/23 Silvio Drake APRN.BILLING AND ACCOUNTING STAFF ASSISTANT [address] [place] [address] Boathouse Keeper Internal Medicine 06/05/24 Dacia Pitt RN 11/04/24 Nursery School Attendant Relationship Specialty Start Date End Date Anay Schuler MD [address] [place] [address] PCP - General Internal Medicine 05/06/16 Fredis Marie MD [address] [place] [address] Specialty Pet Resort Concierge Cardiology 01/27/23 Yuriy Collins DO [address] [place] [address] Specialty Pet Resort Concierge Gastroenterology 01/27/23 Silvio Drake APRN.BILLING AND ACCOUNTING STAFF ASSISTANT [address] [place] [address] Boathouse Keeper Internal Medicine 06/05/24 Dacia Pitt RN 11/04/24 Nursery School Attendant Relationship Specialty Start Date End Date Anay Schuler MD [address] [place] [address] PCP - General Internal Medicine 05/06/16 Fredis Marie MD [address] [place] [address] Specialty Pet Resort Concierge Cardiology 01/27/23 Yuriy Collins DO [address] [place] [address] Specialty Pet Resort Concierge Gastroenterology 01/27/23 Silvio Drake APRN.BILLING AND ACCOUNTING STAFF ASSISTANT [address] [place] [address] Boathouse Keeper Internal Medicine 06/05/24 Nursery School Attendant Relationship Specialty Start Date End Date Anay Schuler MD [address] [place] [address] PCP - General Internal Medicine 05/06/16 Fredis Marie MD [address] [place] [address] Specialty Pet Resort Concierge Cardiology 01/27/23 Yuriy Collins DO [address] [place] [address] Specialty Pet Resort Concierge Gastroenterology 01/27/23 Silvio Drake APRN.BILLING AND ACCOUNTING STAFF ASSISTANT [address] [place] [address] Boathouse Keeper Internal Medicine 06/05/24 Nursery School Attendant Relationship Specialty Start Date End Date Anay Schuler MD [address] [place] [address] PCP - General Internal Medicine 05/06/16 Fredis Marie MD [address] [place] [address] Specialty Pet Resort Concierge Cardiology 01/27/23 Yuriy Collins DO [address] [place] [address] Specialty Pet Resort Concierge Gastroenterology 01/27/23 OlderSilvio APRN.BILLING AND ACCOUNTING STAFF ASSISTANT [address] [place] [address] Boathouse Keeper Internal Medicine 06/05/24 Team Status: Active Member Role/Relationship Status Dates Dr. Anay Schuler MD Primary Care Provider Active Team Status: Active Member Role/Relationship Status Dates Dr. Anay Schuler MD Primary Care Provider Active Start: October 11, 2024 Dr. Vincent Chan MD Emergency Provider Active Start: October 11, 2024 Dr. Inocencia Long MD Attending Provider Active Start: October 11, 2024 Team Status: Inactive Member Role/Relationship Status Dates Dr. Anay Schuler MD Primary Care Provider Active Start: October 11, 2024 End: October 13, 2024 Dr. Vincent Chan MD Emergency Provider Active Start: October 11, 2024 End: October 13, 2024 Dr. Inocencia Long MD Admit Provider Active St art: October 11, 2024 End: October 13, 2024 Dr. Inocencia Long MD Other Provider Active St art: October 11, 2024 End: October 13, 2024 Dr. Jake Kingston MD Other Provider Active St art: October 11, 2024 End: October 13, 2024 Dr. Nirav Cain MD Attending Provider Active Start: October 11, 2024 End: October 13, 2024 Team Status: Active Member Role/Relationship Status Dates Dr. Anay Schuler MD Primary Care Provider Active Start: October 11, 2024 Dr. Vincent Chan MD Emergency Provider Active Start: October 11, 2024 Dr. Inocencia Long MD Admit Provider Active St art: October 11, 2024 Dr. Inocencia Long MD Other Provider Active St art: October 11, 2024 Dr. Jake Kingston MD Attending Provider Active Start: October 11, 2024 Dr. Jake Kingston MD Other Provider Active St art: October 11, 2024 Team Status: Active Member Role/Relationship Status Dates Dr. Anay Schuler MD Primary Care Provider Active Start: October 12, 2024 Dr. Vincent Chan MD Emergency Provider Active Start: October 12, 2024 Dr. Inocencia Long MD Admit Provider Active St art: October 12, 2024 Dr. Inocencia Long MD Other Provider Active St art: October 12, 2024 Dr. Jake Kingston MD Attending Provider Active Start: October 12, 2024 Dr. Jake Kingston MD Other Provider Active St art: October 12, 2024 Dr. Nirav Cain MD Other Provider Active Start: October 12, 2024 Team Status: Active Member Role/Relationship Status Dates Dr. Anay Schuler MD Primary Care Provider Active Start: October 12, 2024 Dr. Fredis Marie MD Attending Provider Active S tart: October 12, 2024 Team Status: Active Member Role/Relationship Status Dates Dr. Anay Schuler MD Primary Care Provider Active Start: October 12, 2024 Dr. Vincent Chan MD Emergency Provider Active Start: October 12, 2024 Dr. Inocencia Long MD Admit Provider Active St art: October 12, 2024 Dr. Inocencia Long MD Other Provider Active St art: October 12, 2024 Dr. Jake Kingston MD Other Provider Active St art: October 12, 2024 Dr. Nirav Cain MD Attending Provider Active Start: October 12, 2024 Dr. Nirav Cain MD Other Provider Active Start: October 12, 2024 Team Status: Active Member Role/Relationship Status Dates Dr. Anay Schuler MD Primary Care Provider Active Start: October 13, 2024 Dr. Vincent Chan MD Emergency Provider Active Start: October 13, 2024 Dr. Inocencia Long MD Admit Provider Active St art: October 13, 2024 Dr. Inocencia Long MD Other Provider Active St art: October 13, 2024 Dr. Jake Kingston MD Attending Provider Active Start: October 13, 2024 Dr. Jake Kingston MD Other Provider Active St art: October 13, 2024 Dr. Nirav Cain MD Other Provider Active Start: October 13, 2024 Team Status: Active Member Role/Relationship Status Dates Dr. Anay Schuler MD Primary Care Provider Active Start: October 13, 2024 Dr. Vincent Chan MD Emergency Provider Active Start: October 13, 2024 Dr. Inocencia Long MD Admit Provider Active St art: October 13, 2024 Dr. Inocencia Long MD Other Provider Active St art: October 13, 2024 Dr. Jake Kingston MD Other Provider Active St art: October 13, 2024 Dr. Nirav Cain MD Attending Provider Active Start: October 13, 2024 Dr. Nirav Cain MD Other Provider Active Start: October 13, 2024 Team Status: Inactive Member Role/Relationship Status Dates Dr. Anay Schuler MD Primary Care Provider Active Start: October 24, 2024 End: October 24, 2024 Dr. Anay Schuler MD Referring Provider Active Start: October 24, 2024 End: October 24, 2024 Ning Spencer ENVIRONMENTAL ISSUES INSTRUCTOR, ENVIRONMENTAL ISSUES INSTRUCTOR-C Attending Provider Active Start: October 24, 2024 End: October 24, 2024 Team Status: Inactive Member Role/Relationship Status Dates Dr. Anay Schuler MD Primary Care Provider Active Start: October 24, 2024 End: October 24, 2024 Ning Spencer ENVIRONMENTAL ISSUES INSTRUCTOR, ENVIRONMENTAL ISSUES INSTRUCTOR-C Attending Provider Active Start: October 24, 2024 End: October 24, 2024 Ning Spencer ENVIRONMENTAL ISSUES INSTRUCTOR, ENVIRONMENTAL ISSUES INSTRUCTOR-C Referring Provider Active Start: October 24, 2024 End: October 24, 2024 Team Status: Inactive Member Role/Relationship Status Dates Dr. Anay Schuler MD Primary Care Provider Active Start: October 27, 2024 End: October 27, 2024 Faustina Hernandez PA, PA Attending Provider Active Start: October 27, 2024 End: October 27, 2024 Faustina Hernandez PA, PA Referring Provider Active Start: October 27, 2024 End: October 27, 2024 Team Status: Active Member Role/Relationship Status Dates Dr. Anay Schuler MD Primary Care Provider Active Start: October 27, 2024 Dr. Jake Kingston MD Attending Provider Active Start: October 27, 2024 Faustina Hernandez PA, PA Referring Provider Active Start: October 27, 2024 Team Status: Inactive Member Role/Relationship Status Dates Dr. Anay Schuler MD Primary Care Provider Active Start: October 30, 2024 End: November 03, 2024 Dr. Jose Mcgraw DO Emergency Provider Active Start: October 30, 2024 End: November 03, 2024 Dr. Nirav Cain MD Admit Provider Active Start: October 30, 2024 End: November 03, 2024 Dr. Nirav Cain MD Other Provider Active Start: October 30, 2024 End: November 03, 2024 Dr. Pb Granado MD Other Provider Active Star t: October 30, 2024 End: November 03, 2024 Dr. Rory Trevizo MD Attending Provider Active Start: October 30, 2024 End: November 03, 2024 Team Status: Active Member Role/Relationship Status Dates Dr. Anay Schuler MD Primary Care Provider Active Start: October 31, 2024 Dr. Jose Mcgraw DO Emergency Provider Active Start: October 31, 2024 Dr. Nirav Cain MD Admit Provider Active Start: October 31, 2024 Dr. Nirav Cain MD Other Provider Active Start: October 31, 2024 Dr. Pb Granado MD Other Provider Active Star t: October 31, 2024 Dr. Rory Trevizo MD Attending Provider Active Start: October 31, 2024 Dr. Rory Trevizo MD Other Provider Active Sta rt: October 31, 2024 Team Status: Active Member Role/Relationship Status Dates Dr. Anay Schuler MD Primary Care Provider Active Start: October 31, 2024 Dr. Jose Mcgraw DO Emergency Provider Active Start: October 31, 2024 Dr. Nirav Cain MD Admit Provider Active Start: October 31, 2024 Dr. Nirav Cain MD Other Provider Active Start: October 31, 2024 Dr. Pb Granado MD Other Provider Active Star t: October 31, 2024 Dr. Rory Trevizo MD Other Provider Active Sta rt: October 31, 2024 Dr. Jake Kingston MD Attending Provider Active Start: October 31, 2024 Team Status: Active Member Role/Relationship Status Dates Dr. Schuyler Rosen MD Attending Provider Active Start: October 31, 2024 Dr. Rory Trevizo MD Referring Provider Active Start: October 31, 2024 Team Status: Active Member Role/Relationship Status Dates Dr. Anay Schuler MD Primary Care Provider Active Start: October 31, 2024 Dr. Talia David MD Attending Provider Active Start: October 31, 2024 Team Status: Active Member Role/Relationship Status Dates Dr. Anay Schuler MD Primary Care Provider Active Start: November 01, 2024 Dr. Jose Mcgraw DO Emergency Provider Active Start: November 01, 2024 Dr. Nirav Cain MD Admit Provider Active Start: November 01, 2024 Dr. Nirav Cain MD Other Provider Active Start: November 01, 2024 Dr. Pb Granado MD Other Provider Active Star t: November 01, 2024 Dr. Rory Trevizo MD Other Provider Active Sta rt: November 01, 2024 Dr. Jake Kingston MD Attending Provider Active Start: November 01, 2024 Team Status: Active Member Role/Relationship Status Dates Dr. Anay Schuler MD Primary Care Provider Active Start: November 01, 2024 Dr. Jose Mcgraw DO Emergency Provider Active Start: November 01, 2024 Dr. Nirav Cain MD Admit Provider Active Start: November 01, 2024 Dr. Nirav Cain MD Other Provider Active Start: November 01, 2024 Dr. Pb Granado MD Other Provider Active Star t: November 01, 2024 Dr. Rory Trevizo MD Attending Provider Active Start: November 01, 2024 Dr. Rory Trevizo MD Other Provider Active Sta rt: November 01, 2024 Team Status: Active Member Role/Relationship Status Dates Dr. Anay Schuler MD Primary Care Provider Active Start: November 02, 2024 Dr. Jose Mcgraw DO Emergency Provider Active Start: November 02, 2024 Dr. Nirav Cain MD Admit Provider Active Start: November 02, 2024 Dr. Nirav Cain MD Other Provider Active Start: November 02, 2024 Dr. Pb Granado MD Other Provider Active Star t: November 02, 2024 Dr. Rory Trevizo MD Other Provider Active Sta rt: November 02, 2024 Dr. Jake Kingston MD Attending Provider Active Start: November 02, 2024 Team Status: Active Member Role/Relationship Status Dates Dr. Anay Schuler MD Primary Care Provider Active Start: November 02, 2024 Dr. Jose Mcgraw DO Emergency Provider Active Start: November 02, 2024 Dr. Nirav Cain MD Admit Provider Active Start: November 02, 2024 Dr. Nirav Cain MD Other Provider Active Start: November 02, 2024 Dr. Pb Granado MD Other Provider Active Star t: November 02, 2024 Dr. Rory Trevizo MD Attending Provider Active Start: November 02, 2024 Dr. Rory Trevizo MD Other Provider Active Sta rt: November 02, 2024 Team Status: Active Member Role/Relationship Status Dates Dr. Anay Schuler MD Primary Care Provider Active Start: November 03, 2024 Dr. Jose Mcgraw DO Emergency Provider Active Start: November 03, 2024 Dr. Nirav Cain MD Admit Provider Active Start: November 03, 2024 Dr. Nirav Cain MD Other Provider Active Start: November 03, 2024 Dr. Pb Granado MD Other Provider Active Star t: November 03, 2024 Dr. Rory Trevizo MD Other Provider Active Sta rt: November 03, 2024 Dr. Jake Kingston MD Attending Provider Active Start: November 03, 2024 Team Status: Active Member Role/Relationship Status Dates Dr. Anay Schuler MD Primary Care Provider Active Start: November 03, 2024 Dr. Jose Mcgraw DO Emergency Provider Active Start: November 03, 2024 Dr. Nirav Cain MD Admit Provider Active Start: November 03, 2024 Dr. Nirav Cain MD Other Provider Active Start: November 03, 2024 Dr. Pb Granado MD Other Provider Active Star t: November 03, 2024 Dr. Rory Trevizo MD Attending Provider Active Start: November 03, 2024 Dr. Rory Trevizo MD Other Provider Active Sta rt: November 03, 2024 Team Status: Inactive Member Role/Relationship Status Dates Dr. Anay Schuler MD Primary Care Provider Active Start: November 08, 2024 End: November 08, 2024 Dr. Jake Kingston MD Attending Provider Active Start: November 08, 2024 End: November 08, 2024 Dr. Jake Kingston MD Referring Provider Active Start: November 08, 2024 End: November 08, 2024 Team Status: Inactive Member Role/Relationship Status Dates Dr. Anay Schuler MD Primary Care Provider Active Start: November 08, 2024 End: November 08, 2024 Dr. Anay Schuler MD Referring Provider Active Start: November 08, 2024 End: November 08, 2024 Dr. Terry Basilio MD Attending Provider Active Sta rt: November 08, 2024 End: November 08, 2024 Team Status: Inactive Member Role/Relationship Status Dates Dr. Anay Schuler MD Primary Care Provider Active Start: November 11, 2024 End: November 11, 2024 Dr. Anay Schuler MD Referring Provider Active Start: November 11, 2024 End: November 11, 2024 Ning Spencer ENVIRONMENTAL ISSUES INSTRUCTOR, ENVIRONMENTAL ISSUES INSTRUCTOR-C Attending Provider Active Start: November 11, 2024 End: November 11, 2024 Team Status: Inactive Member Role/Relationship Status Dates Dr. Anay Schuler MD Primary Care Provider Active Start: November 15, 2024 End: November 15, 2024 Dr. Anay Schuler MD Referring Provider Active Start: November 15, 2024 End: November 15, 2024 Dr. Fredis Marie MD Attending Provider Active S tart: November 15, 2024 End: November 15, 2024 Team Status: Inactive Member Role/Relationship Status Dates Dr. Anay Schuler MD Primary Care Provider Active Start: November 19, 2024 End: November 19, 2024 Dr. Beto Keene DO Attending Provider Active Start: November 19, 2024 End: November 19, 2024 Dr. Beto Keene DO Emergency Provider Active Start: November 19, 2024 End: November 19, 2024 Team Status: Inactive Member Role/Relationship Status Dates Dr. Anay Schuler MD Primary Care Provider Active Start: November 25, 2024 End: November 25, 2024 Dr. Anay Schuler MD Referring Provider Active Start: November 25, 2024 End: November 25, 2024 Ning Spencer NP, ENVIRONMENTAL ISSUES INSTRUCTOR-C Attending Provider Active Start: November 25, 2024 End: November 25, 2024 [employer] Att[employer] Relationship Specialty Start Date End Date Anay Schuler MD [address] [place] [address] PCP - General Internal Medicine 05/06/16 Fredis Marie MD [address] [facility] [address] [place], [place] [id number] Specialty Pet Resort Concierge Cardiology 01/27/23 Yuriy Collins [address] [facility] [address] [place], [place] [id number] Specialty Pet Resort Concierge Gastroenterology 01/27/23 Silvio Drake APRN.[facility] [address] [facility], [place] [id number] Boathouse Keeper Internal Medicine 06/05/24 Team Status: Inactive Member Role/Relationship Status Dates Dr. Anay Schuler MD Primary Care Provider Active Start: January 09, 2025 End: January 09, 2025 Dr. Anay Schuler MD Referring Provider Active Start: January 09, 2025 End: January 09, 2025 Dr. Jake Kingston MD Attending Provider Active Start: January 09, 2025 End: January 09, 2025 Team Status: Inactive Member Role/Relationship Status Dates Dr. Anay Schuler MD Primary Care Provider Active Start: December 27, 2024 Dr. Jessica Adler MD Attending Provider Active Start: December 27, 2024 Team Status: Inactive Member Role/Relationship Status Dates Dr. Anay Schuler MD Primary Care Provider Active Start: January 09, 2025 End: January 09, 2025 Dr. Anay Schuler MD Referring Provider Active Start: January 09, 2025 End: January 09, 2025 Dr. Jake Kingston MD Attending Provider Active Start: January 09, 2025 End: January 09, 2025 Team Status: Inactive Member Role/Relationship Status Dates Dr. Anay Schuler MD Primary Care Provider Active Start: February 02, 2025 End: February 02, 2025 Dr. Jake Kingston MD Attending Provider Active Start: February 02, 2025 End: February 02, 2025 Dr. Jake Kingston MD Referring Provider Active Start: February 02, 2025 End: February 02, 2025 Team Status: Active Member Role/Relationship Status Dates Dr. Anay Schuler MD Primary Care Provider Active Start: February 02, 2025 Dr. Fredis Marie MD Attending Provider Active S tart: February 02, 2025 Team Status: Inactive Member Role/Relationship Status Dates Dr. Anay Schuler MD Primary Care Provider Active Start: October 27, 2024 End: October 27, 2024 Faustina Hernandez PA, PA Attending Provider Active Start: October 27, 2024 End: October 27, 2024 Faustina Hernandez PA, PA Referring Provider Active Start: October 27, 2024 End: October 27, 2024 Team Status: Active Member Role/Relationship Status Dates Dr. Anay Schuler MD Primary Care Provider Active Start: October 27, 2024 Dr. Jake Kingston MD Attending Provider Active Start: October 27, 2024 Faustina MCCANN, PA Referring Provider Active Start: October 27, 2024 Team Status: Inactive Member Role/Relationship Status Dates Dr. Anay Schuler MD Primary Care Provider Active Start: October 30, 2024 End: November 03, 2024 Dr. Jose Mcgraw DO Emergency Provider Active Start: October 30, 2024 End: November 03, 2024 Dr. Nirav Cain MD Admit Provider Active Start: October 30, 2024 End: November 03, 2024 Dr. Nirav Cain MD Other Provider Active Start: October 30, 2024 End: November 03, 2024 Dr. Pb Granado MD Other Provider Active Star t: October 30, 2024 End: November 03, 2024 Dr. Rory Trevizo MD Attending Provider Active Start: October 30, 2024 End: November 03, 2024 Team Status: Active Member Role/Relationship Status Dates Dr. Anay Schuler MD Primary Care Provider Active Start: October 31, 2024 Dr. Jose Mcgraw DO Emergency Provider Active Start: October 31, 2024 Dr. Nirav Cain MD Admit Provider Active Start: October 31, 2024 Dr. Nirav Cain MD Other Provider Active Start: October 31, 2024 Dr. Pb Granado MD Other Provider Active Star t: October 31, 2024 Dr. Rory Trevizo MD Attending Provider Active Start: October 31, 2024 Dr. Rory Trevizo MD Other Provider Active Sta rt: October 31, 2024 Team Status: Active Member Role/Relationship Status Dates Dr. Anay Schuler MD Primary Care Provider Active Start: October 31, 2024 Dr. Jose Mcgraw DO Emergency Provider Active Start: October 31, 2024 Dr. Nirav Cain MD Admit Provider Active Start: October 31, 2024 Dr. Nirav Cain MD Other Provider Active Start: October 31, 2024 Dr. Pb Granado MD Other Provider Active Star t: October 31, 2024 Dr. Rory Trevizo MD Other Provider Active Sta rt: October 31, 2024 Dr. Jake Kingston MD Attending Provider Active Start: October 31, 2024 Team Status: Active Member Role/Relationship Status Dates Dr. Schuyler Rosen MD Attending Provider Active Start: October 31, 2024 Dr. Rory Trevizo MD Referring Provider Active Start: October 31, 2024 Team Status: Active Member Role/Relationship Status Dates Dr. Anay Schuler MD Primary Care Provider Active Start: October 31, 2024 Dr. Talia David MD Attending Provider Active Start: October 31, 2024 Team Status: Active Member Role/Relationship Status Dates Dr. Anay Schuler MD Primary Care Provider Active Start: November 01, 2024 Dr. Jose Mcgraw DO Emergency Provider Active Start: November 01, 2024 Dr. Nirav Cain MD Admit Provider Active Start: November 01, 2024 Dr. Nirav Cain MD Other Provider Active Start: November 01, 2024 Dr. Pb Granado MD Other Provider Active Star t: November 01, 2024 Dr. Rory Trevizo MD Other Provider Active Sta rt: November 01, 2024 Dr. Jake Kingston MD Attending Provider Active Start: November 01, 2024 Team Status: Active Member Role/Relationship Status Dates Dr. Anay Schuler MD Primary Care Provider Active Start: November 01, 2024 Dr. Jose Mcgraw DO Emergency Provider Active Start: November 01, 2024 Dr. Nirav Cain MD Admit Provider Active Start: November 01, 2024 Dr. Nirav Cain MD Other Provider Active Start: November 01, 2024 Dr. Pb Granado MD Other Provider Active Star t: November 01, 2024 Dr. Rory Trevizo MD Attending Provider Active Start: November 01, 2024 Dr. Rory Trevizo MD Other Provider Active Sta rt: November 01, 2024 Team Status: Active Member Role/Relationship Status Dates Dr. Anay Schuler MD Primary Care Provider Active Start: November 02, 2024 Dr. Jose Mcgraw DO Emergency Provider Active Start: November 02, 2024 Dr. Nirav Cain MD Admit Provider Active Start: November 02, 2024 Dr. Nirav Cain MD Other Provider Active Start: November 02, 2024 Dr. Pb Granado MD Other Provider Active Star t: November 02, 2024 Dr. Rory Trevizo MD Other Provider Active Sta rt: November 02, 2024 Dr. Jake Kingston MD Attending Provider Active Start: November 02, 2024 Team Status: Active Member Role/Relationship Status Dates Dr. Anay Schuler MD Primary Care Provider Active Start: November 02, 2024 Dr. Jose Mcgraw DO Emergency Provider Active Start: November 02, 2024 Dr. Nirav Cain MD Admit Provider Active Start: November 02, 2024 Dr. Nirav Cain MD Other Provider Active Start: November 02, 2024 Dr. Pb Granado MD Other Provider Active Star t: November 02, 2024 Dr. Rory Trevizo MD Attending Provider Active Start: November 02, 2024 Dr. Rory Trevizo MD Other Provider Active Sta rt: November 02, 2024 Team Status: Active Member Role/Relationship Status Dates Dr. Anay Schuler MD Primary Care Provider Active Start: November 03, 2024 Dr. Jose Mcgraw DO Emergency Provider Active Start: November 03, 2024 Dr. Nirav Cain MD Admit Provider Active Start: November 03, 2024 Dr. Nirav Cain MD Other Provider Active Start: November 03, 2024 Dr. Pb Granado MD Other Provider Active Star t: November 03, 2024 Dr. Rory Trevizo MD Other Provider Active Sta rt: November 03, 2024 Dr. Jake Kingston MD Attending Provider Active Start: November 03, 2024 Team Status: Active Member Role/Relationship Status Dates Dr. Anay Schuler MD Primary Care Provider Active Start: November 03, 2024 Dr. Jose Mcgraw DO Emergency Provider Active Start: November 03, 2024 Dr. Nirav Cain MD Admit Provider Active Start: November 03, 2024 Dr. Nirav Cain MD Other Provider Active Start: November 03, 2024 Dr. Pb Granado MD Other Provider Active Star t: November 03, 2024 Dr. Rory Trevizo MD Attending Provider Active Start: November 03, 2024 Dr. Rory Trevizo MD Other Provider Active Sta rt: November 03, 2024 Team Status: Inactive Member Role/Relationship Status Dates Dr. Anay Schuler MD Primary Care Provider Active Start: November 08, 2024 End: November 08, 2024 Dr. Jake Kingston MD Attending Provider Active Start: November 08, 2024 End: November 08, 2024 Dr. Jake Kingston MD Referring Provider Active Start: November 08, 2024 End: November 08, 2024 Team Status: Inactive Member Role/Relationship Status Dates Dr. Anay Schuler MD Primary Care Provider Active Start: November 08, 2024 End: November 08, 2024 Dr. Anay Schuler MD Referring Provider Active Start: November 08, 2024 End: November 08, 2024 Dr. Terry Basilio MD Attending Provider Active Sta rt: November 08, 2024 End: November 08, 2024 Team Status: Inactive Member Role/Relationship Status Dates Dr. Anay Schuler MD Primary Care Provider Active Start: November 11, 2024 End: November 11, 2024 Dr. Anay Schuler MD Referring Provider Active Start: November 11, 2024 End: November 11, 2024 Ning Spencer ENVIRONMENTAL ISSUES INSTRUCTOR, ENVIRONMENTAL ISSUES INSTRUCTOR-C Attending Provider Active Start: November 11, 2024 End: November 11, 2024 Team Status: Inactive Member Role/Relationship Status Dates Dr. Anay Schuler MD Primary Care Provider Active Start: November 15, 2024 End: November 15, 2024 Dr. Anay Schuler MD Referring Provider Active Start: November 15, 2024 End: November 15, 2024 Dr. Fredis Marie MD Attending Provider Active S tart: November 15, 2024 End: November 15, 2024 Team Status: Inactive Member Role/Relationship Status Dates Dr. Anay Schuler MD Primary Care Provider Active Start: November 19, 2024 End: November 19, 2024 Dr. Beto Keene DO Attending Provider Active Start: November 19, 2024 End: November 19, 2024 Dr. Beto Keene DO Emergency Provider Active Start: November 19, 2024 End: November 19, 2024 Team Status: Inactive Member Role/Relationship Status Dates Dr. Anay Schuler MD Primary Care Provider Active Start: November 25, 2024 End: November 25, 2024 Dr. Anay Schuler MD Referring Provider Active Start: November 25, 2024 End: November 25, 2024 Ning Spencer NP, ENVIRONMENTAL ISSUES INSTRUCTOR-C Attending Provider Active Start: November 25, 2024 End: November 25, 2024 Team Status: Inactive Member Role/Relationship Status Dates Dr. Anay Schuler MD Primary Care Provider Active Start: December 27, 2024 Dr. Jessica Adler MD Attending Provider Active Start: December 27, 2024 Team Status: Inactive Member Role/Relationship Status Dates Dr. Anay Schuler MD Primary Care Provider Active Start: January 09, 2025 End: January 09, 2025 Dr. Anay Schuler MD Referring Provider Active Start: January 09, 2025 End: January 09, 2025 Dr. Jake Kingston MD Attending Provider Active Start: January 09, 2025 End: January 09, 2025 Team Status: Inactive Member Role/Relationship Status Dates Dr. Anay Schuler MD Primary Care Provider Active Start: February 02, 2025 End: February 02, 2025 Dr. Jake Kingston MD Attending Provider Active Start: February 02, 2025 End: February 02, 2025 Dr. Jake Kingston MD Referring Provider Active Start: February 02, 2025 End: February 02, 2025 Team Status: Active Member Role/Relationship Status Dates Dr. Anay Schuler MD Primary Care Provider Active Start: February 02, 2025 Dr. Fredis Marie MD Attending Provider Active S tart: February 02, 2025 Team Status: Inactive Member Role/Relationship Status Dates Dr. Anay Schuler MD Primary Care Provider Active Start: February 22, 2025 End: February 22, 2025 Dr. Anay Schuler MD Referring Provider Active Start: February 22, 2025 End: February 22, 2025 Dr. Jessica Adler MD Attending Provider Active Start: February 22, 2025 End: February 22, 2025 Team Status: Inactive Member Role/Relationship Status Dates Dr. Anay Schuler MD Primary Care Provider Active Start: November 11, 2024 End: November 11, 2024 Dr. Anay Schuler MD Referring Provider Active Start: November 11, 2024 End: November 11, 2024 Ning Spencer NP, ENVIRONMENTAL ISSUES INSTRUCTOR-C Attending Provider Active Start: November 11, 2024 End: November 11, 2024 Team Status: Inactive Member Role/Relationship Status Dates Dr. Anay Schuler MD Primary Care Provider Active Start: November 15, 2024 End: November 15, 2024 Dr. Anay Schuler MD Referring Provider Active Start: November 15, 2024 End: November 15, 2024 Dr. Fredis Marie MD Attending Provider Active S tart: November 15, 2024 End: November 15, 2024 Team Status: Inactive Member Role/Relationship Status Dates Dr. Anay Schuler MD Primary Care Provider Active Start: November 19, 2024 End: November 19, 2024 Dr. Beto Keene DO Attending Provider Active Start: November 19, 2024 End: November 19, 2024 Dr. Beto Keene DO Emergency Provider Active Start: November 19, 2024 End: November 19, 2024 Team Status: Inactive Member Role/Relationship Status Dates Dr. Anay Schuler MD Primary Care Provider Active Start: November 25, 2024 End: November 25, 2024 Dr. Anay Schuler MD Referring Provider Active Start: November 25, 2024 End: November 25, 2024 Ning Spencer NP, [employer]UES [employer] Attending Provider Active Start: November 25, 2024 End: November 25, 2024 Team Status: Inactive Member Role/Relationship Status Dates Dr. Anay Schuler MD Primary Care Provider Active Start: December 27, 2024 Dr. Jessica Adler MD Attending Provider Active Start: December 27, 2024 Team Status: Inactive Member Role/Relationship Status Dates Dr. Anay Schuler MD Primary Care Provider Active Start: January 09, 2025 End: January 09, 2025 Dr. Anay Schuler MD Referring Provider Active Start: January 09, 2025 End: January 09, 2025 Dr. Jake Kingston MD Attending Provider Active Start: January 09, 2025 End: January 09, 2025 Team Status: Inactive Member Role/Relationship Status Dates Dr. Anay Schuler MD Primary Care Provider Active Start: February 02, 2025 End: February 02, 2025 Dr. Jake Kingston MD Attending Provider Active Start: February 02, 2025 End: February 02, 2025 Dr. Jake Kingston MD Referring Provider Active Start: February 02, 2025 End: February 02, 2025 Team Status: Active Member Role/Relationship Status Dates Dr. Anay Schuler MD Primary Care Provider Active Start: February 02, 2025 Dr. Fredis Marie MD Attending Provider Active S tart: February 02, 2025 Team Status: Inactive Member Role/Relationship Status Dates Dr. Anay Schuler MD Primary Care Provider Active Start: February 22, 2025 End: February 22, 2025 Dr. Anay Schuler MD Referring Provider Active Start: February 22, 2025 End: February 22, 2025 Dr. Jessica Adler MD Attending Provider Active Start: February 22, 2025 End: February 22, 2025 Team Status: Inactive Member Role/Relationship Status Dates Dr. Anay Schuler MD Primary Care Provider Active Start: March 01, 2025 End: March 01, 2025 Dr. Dacia Sewell DO Attending Provider Active Start: March 01, 2025 End: March 01, 2025 Goals (unrecognized section and content) Goals may be documented in a n alternate sectionGoals may be documented in an alternate sectionGoals may be documented in an alternate sectionGoals may be documented in an alternate sectionGoals may be documented in an alternate sectionGoals may be documented in an alternate section INFORMATION SOURCE (unrecogn ized section and content) DATE CREATED AUTHOR 02/03/2023 [facility] DATE CREATED AUTHOR AUTHOR'S ORGANIZ ATION 01/07/2025 [facility] DATE CREATED AUTHOR AUTHOR'S ORGANIZ ATION 03/12/2025 [facility] FOR RECORDS PERTAINING TO PATIENTS WHO ARE [...] BE BASED ON THE PRIMARY CLINICAL RECORDS. [facility] provides no warranty or guarantee of the accuracy or completeness of information in this document.
[2025-04-01 11:55] LABS: Anion Gap 12 (5-15); BUN 32 mg/dL (4-19); BUN/Creat Ratio 16.5 RATIO (10-20); Calcium,Total 9.1 mg/dL (7.6-11.0); Carbon Dioxide 20.5 mmol/L (21.0-32.0); Chloride 101 mmol/L (98-108); Estimated Creatinine Clearance 15.69 ml/min (50-250); Glucose 107 mg/dL (70-99); Potassium 4.5 mmol/L (3.3-5.1); Troponin T High Sensitivity 47 ng/L (<=14)
--- NOTE | 2025-04-01 12:44 | PCM.HP.STD ---
HPI - General General Date of Admission: 04/01/25 Date of Service: 04/01/25 Chief Complaint: dizziness HPI Narrative BERNADETTE ELIZABETH, is a 89 F with an extensive PMH as outlined who presents via the ED with a complaint of dizziness for several days. Her daughter was by her bedside. She had associated shortness of breath. She has a history of afib. She denied any chest pain, palpitations, nausea, vomiting or any other symptoms. Review of systems is otherwise negative. She was recently started on Bactrim for UTI and her daughter was wondering whether it was associated with the dizziness or otherwise. She is on amiodarone and metoprolol for her A-fib and has been compliant with these medications. Vitals in the ED were BP of 161/54, MI of 47, RR of 17 and she was saturating at 93% on room air. CBC showed hb of 10.9m wbc of 7.9, platelets of 167. Chemistry showed sodium of 134 with potassium of 4.5 and bicarb of 20.5. Creatinine was 1.96. Initial troponin was 47. TSH was normal at 2.38. Chest x-ray showed no acute cardiopulmonary pathology. EKG showed sinus bradycardia. She is being admitted to be managed for symptomatic bradycardia. [facility] Medical History Urinary tract infection Mixed incontinence Nocturia Stage 3b chronic kidney disease (CKD) Chronic kidney disease Hypothyroidism (acquired) Wears glasses Post-menopausal Thyroid disease Gastric reflux Former smoker History of edema History of echocardiogram History of stress test Cardiology follow-up encounter History of CHF (congestive heart failure) Paroxysmal atrial fibrillation Elevated liver enzymes CKD (chronic kidney disease) stage 4, GFR 15-29 ml/min Stage 3b chronic kidney disease (CKD) Lymphedema of both lower extremities Bilateral lower extremity edema Dyspnea on exertion Pneumonia (03/19/22) Essential hypertension Atrial fibrillation, new onset Positive occult stool blood test Umbilical hernia Osteoporosis Hemorrhage of anus and rectum Glaucoma Acquired keratoderma Anemia Syncope Essential hypertension Sweating Palpitations Near syncope Hernia HLD (hyperlipidemia) Home Medications ?Medication ?Instructions ?Recorded ?Last Taken ?Type atorvastatin 20 mg tablet 20 mg PO QODAY Cholesterol 12/06/16 03/31/25 History timolol maleate 0.5 % eye drops 1 drp RIGHT EYE BID eye drops 12/06/16 03/31/25 History brimonidine 0.15 % eye drops 1 drp ophthalmic (eye) BID eye 03/25/22 03/31/25 History health levothyroxine 25 mcg tablet 25 mcg PO DAILY thyroid 03/25/22 04/01/25 History losartan 50 mg tablet 50 mg PO BID bp #180 tabs 07/11/22 04/01/25 Rx mecobalamin (vitamin B12) 1,000 1,000 mcg PO DAILY supplement 05/08/23 03/31/25 History mcg chewable tablet denosumab 60 mg/mL subcutaneous 60 mg subcut [id number] bone health 08/20/23 10/26/24 History syringe (Prolia) ferrous sulfate 325 mg (65 mg 325 mg PO DAILY supplement 10/30/24 03/31/25 History iron) tablet (Feosol) netarsudil 0.02 %-latanoprost 1 drp ophthalmic (eye) DAILY 10/30/24 03/31/25 History 0.005 % eye drops (Rocklatan) cataract furosemide 20 mg tablet (Lasix) 20 mg PO .EOD edema 11/11/24 03/30/25 History omeprazole 40 mg capsule,delayed 40 mg PO DAILY gerd 11/11/24 04/01/25 History release carvedilol 3.125 mg tablet 3.125 mg PO BID #60 tabs 11/25/24 04/01/25 Rx cholecalciferol (vitamin D3) 50 50 mcg PO QDAY supplement 11/25/24 03/31/25 History mcg (2,000 unit) capsule amiodarone 200 mg tablet 100 mg (1/2 x 200 mg) PO QDAY #60 12/22/24 04/01/25 Rx tabs hydralazine 50 mg tablet 50 mg PO TID #90 tabs 01/09/25 04/01/25 Rx Gemtesa 75 mg tablet (vibegron) 75 mg PO DAILY bladder #90 tabs 02/22/25 04/01/25 Rx rivaroxaban 15 mg tablet (Xarelto) 15 mg PO DINNER blood thinner #30 03/27/25 03/31/25 Rx tabs potassium chloride 10 mEq 10 meq PO BID low potassium 04/01/25 03/31/25 History capsule,extended release Allergy/AdvReac Type Severity Reaction Status Date / Time amantadine Allergy Rash Verified 04/01/25 10:52 cephalexin Allergy Rash Verified 04/01/25 10:52 erythromycin base Allergy Rash Verified 04/01/25 10:52 hydrochlorothiazide Allergy Rash Verified 04/01/25 10:52 Iodinated Contrast Media Allergy Rash Verified 04/01/25 10:52 nitrofurantoin (From Allergy Vomiting Verified 04/01/25 10:52 Macrobid) amlodipine (From Norvasc) AdvReac Severe SEVERE Verified 04/01/25 10:52 SWELLING in LEGS Family History Mother CAD (coronary artery disease) Father CAD (coronary artery disease) Brother CAD (coronary artery disease) Sister CAD (coronary artery disease) Surgical History History of cardiac catheterization Hx of esophagogastroduodenoscopy History of colonoscopy History of hysteroscopy H/O hernia repair Tubal ligation status History of left heart catheterization (02/05/18) s/p left wrist ORIF Social History household members: none housing: apartment number of children: 4 Smoking Status: Former smoker quit date: 06/29/76 alcohol intake: never substance use type: does not use caffeine: Yes (Occasionally) ROS Constitutional Constitutional: Reports fatigue, malaise and weakness; Denies anorexia, chills or fever(s) Eyes Eyes: Denies change in vision ENT HEENT: Denies dysphagia, headache(s) or sore throat Cardiovascular Cardiovascular: Reports lightheadedness; Denies chest pain, dyspnea on exertion, edema, orthopnea, palpitations or rapid heart rate Respiratory/Chest Respiratory/Chest: Denies cough, dyspnea, shortness of breath at rest or shortness of breath with exertion Gastrointestinal Gastrointestinal: Denies abdominal pain, constipation, diarrhea, nausea or vomiting Genitourinary Genitourinary: Denies dysuria Neurologic Neurologic: Reports dizziness; Denies confusion, focal weakness, headache(s), numbness, seizure-like activity, seizures or syncope Psychiatric Psychiatric: Denies anxiety or depression Vital Signs Vital Signs Vital Signs: 04/01/25 10:52 04/01/25 11:07 04/01/25 11:15 Temperature 98.0 F Temperature Source Oral Pulse Rate 32 L 53 L Respiratory Rate 16 16 Blood Pressure 158/54 H 163/36 H Blood Pressure Mean 88 78 Pulse Ox 95 96 Oxygen Delivery Method Room Air Room Air 04/01/25 11:30 04/01/25 12:00 Temperature Temperature Source Pulse Rate 52 L 47 L Respiratory Rate 16 17 Blood Pressure 168/39 H 161/54 H Blood Pressure Mean 76 89 Pulse Ox 96 93 Oxygen Delivery Method Weight Weight: 127 lb 3.307 oz Body Mass Index (BMI) 23.2 Physical Exam Const alert, oriented x3 and no apparent distress Constitutional Narrative: frail, weak General Appearance: cooperative HEENT normocephalic, head/scalp atraumatic, hearing grossly normal bilaterally and moist oral mucous membranes Mouth: oral and palatal mucosa normal Eyes PERRL and EOMs intact bilaterally Neck supple and no JVD Resp normal respiratory effort, no retractions, no use of accessory muscles and clear to auscultation bilaterally Cardio regular rhythm, S1 normal heart sound, S2 normal heart sound and no murmurs Cardio Narrative: sinus bradycardia GI normal to inspection, nondistended, normoactive bowel sounds, soft to palpation, non-tender and non-distended Extremity normal to inspection, full ROM and no clubbing, cyanosis or edema Neuro oriented x3, CN's II-XII intact bilaterally, moves all extremities and no focal motor deficits Sensorium / Orientation: awake and alert Motor Exam: strength 5/5 throughout Psych affect normal Results Lab / Micro Data 04/01/25 11:06 04/01/25 11:06 Labs: Laboratory Results - last 24 hr 04/01/25 11:06: WBC 7.9, RBC 3.43 L, Hgb 10.9 L, Hct 33.7 L, MCV 98.3, MCH 31.8, MCHC 32.3, RDW Std Deviation 50.1 H, RDW Coeff of Broderick 13.9, Plt Count 167, MPV 10.1, Immature Gran % (Auto) 0.400, Neut % (Auto) 77.5 H, Lymph % (Auto) 13.2 L, Dickens % (Auto) 6.9, Eos % (Auto) 1.4, Baso % (Auto) 0.6, Absolute Neuts (auto) 6.1, Absolute Lymphs (auto) 1.04, Nucleated RBC % 0, Sodium 134, Potassium 4.5, Chloride 101, Carbon Dioxide 20.5 L, Anion Gap 12, BUN 32 H, Creatinine 1.96 H, Estim Creat Clear Calc 15.69 L, Est GFR (MDRD) Non-Af 24 L, BUN/Creatinine Ratio 16.5, Glucose 107 H, Calcium 9.1, Troponin T High Sens 47 H D, TSH 2.380 Rhythm Strip Rhythm Strip: Sinus bradycardia Rate: 46 Ectopy: None Imaging Radiology Impression Chest X-Ray 04/01/25 11:20 IMPRESSION: No Acute Findings. Reading Location: [facility] Assessment & Plan Assessment/Plan (1) Symptomatic bradycardia: PLAN: Plan #Symptomatic sinus bradycardia Patient states started feeling dizzy this morning. Her heart rate was as low as the mid 20s and 30s. She is on amiodarone and metoprolol for A-fib. EKG showed sinus bradycardia. Will hold metoprolol and amiodarone. IV atropine as needed. Consult cardiology. Patient counseled she would likely need a pacemaker. Check TSH and order 2D echo. Cycle troponins. #History of A-fib Hold carvedilol and amiodarone. Hold xarelto and placed on therapeutic Lovenox in anticipation for pacemaker insertion likely on Thursday. 2D echo ordered. #UTI: Patient was recently diagnosed with UTI started on Bactrim by her PCP. Will start on IV ceftriaxone and get urine cultures. Hold Bactrim. #Benign essential hypertension: Blood pressure elevated in the 190s systolic. On hydralazine. Amiodarone and carvedilol on hold. IV hydralazine as needed. Also on losartan. Will resume these. #Congestive heart failure: Not in exacerbation. Continue Lasix # Hyperlipidemia: On statin DVT prophylaxis: therapeutic lovenox CODE STATUS: DNR CCA no intubation Had an extensive discussion with patient and her daughter about the differences between full code, DNR CCA and DNR CCA. Patient vacillated quite a lot and was alternating between full code and DNR CCA but subsequently said that in light of her advanced age she would not want any attempt at CPR no intubation though she wanted everything else done. Patient therefore elects to be DNR CCA no intubation. Total [id number] time 18 minutes. Charges/Coding Visit Charges Inpatient E&M: 18979 Init Hosp L3 Procedures Hospitalists Procedures: 42702 Advncd Care Plan 30 Min
[2025-04-01 14:04] LABS: Troponin T High Sens 2 HR 41 ng/L (<=14)
--- OUTSIDE RECORDS SUMMARY | 2025-04-01 14:28 | XMS RPT_ITS | CCD ---
Author Organization [facility] Care Team Providers Care Detention Attendant Name Role Phone Evon FERNANDEZ, Anay Primary Care Provider Dr. Anay Schuler Primary Care Provider Dr. Anay Schuler Referring Provider Arabella SOLIZ, OUTSIDE PLANT CABLE ENGINEER-C Celeste Crowe Attending Provider Anay Schuler MD Primary Care Provider Dr. Woo Tucker Emergency Provider Saad, Dr. Sarah Olsen Admit Provider Saad, Dr. Sarah Olsen Other Provider Dr. Neil Arroyo Other Provider Friend, Dr. Yan Attending Provider [phone] Neil Arroyo Attending Provider Saad, Dr. Sarah Oslen Attending Provider [phone] Saad, Dr. Sarah Olsen Referring Provider Dr. Brigido Frey Attending Provider Sarah OUTSIDE PLANT CABLE ENGINEER, OUTSIDE PLANT CABLE ENGINEERMiguel Angel Clark Attending Provider Michi OUTSIDE PLANT CABLE ENGINEER, OUTSIDE PLANT CABLE ENGINEERYeniC Ning Attending Provider [phone] Translations: [Incisional hernia without obstruction or gangrene] [...] 03-25-2022 Episodic Comment on above: Cxray at [facility] . Residual codes; unclassified (20 sources) Edema of foot; Translations: [Localized edema] Onset: 7 12-04-2016 Episodic Residual codes; unclassified (20 sources) History of cardiac catheterization; Translations: [Other specified postprocedural states] Onset: 8 02-22-2018 Episodic Comment on above: Normal coronaries pe r cath done @ [facility] per Dr. Nolen Residual codes; unclassified (20 [...] on 03-01-2025 Anion gap [Moles/Vol] 11 mmol/L - [facility] BUN/creatinine ratioOrdered By: Dacia Sewell on 03-01-2025 Urea nitrogen/Creatinine [Mass ratio] 19.9 mg/mg - [facility] Basic Metabolic Profile (BMP )on 03-01-2025 BUN Normal 10-15 [facility] Comment on above: Result Comment: DR. SEWELL ORDERED RENAL Performed By: #### L 500.2500 ####[facility] [address] [facility] [place], [address] BUN/CRE Normal - [facility] Comment on above: Result Comment: DR. SEWELL ORDERED RENAL Performed By: #### L 500.2500 ####[facility] [address] [place], [address] Calcium Normal 7.6-11.0 [facility] Comment on above: Result Comment: DR. SEWELL ORDERED RENAL Performed By: #### L 500.2500 ####[facility] [address] [place], [address] CL Normal 98-108 [facility] Comment on above: Result Comment: DR. SEWELL ORDERED RENAL Performed By: #### L 500.2500 ####[facility] [address] [place], [address] CO2 Normal 21.0-32.0 [facility] Comment on above: Result Comment: DR. SEWELL ORDERED RENAL Performed By: #### L 500.2500 ####[facility] [address] [place], [address] CREAT,SERUM Normal 0.70-1.20 [facility] Comment on above: Result Comment: DR. SEWELL ORDERED RENAL Performed By: #### L 500.2500 ####[facility] [address] [place], [address] eGFR Normal >60 [facility] Comment on above: Result Comment: DR. SEWELL ORDERED RENAL Performed By: #### L 500.2500 ####[facility] [address] [place], [address] GAP Normal 5-15 [facility] Comment on above: Result Comment: DR. SEWELL ORDERED RENAL Performed By: #### L 500.2500 ####[facility] [address] [place], [address] GLU Normal 70-99 [facility] Comment on above: Result Comment: DR. SEWELL ORDERED RENAL Performed By: #### L 500.2500 ####[facility] [address] [place], [address] Potassium Normal 3.3-5.1 [facility] Comment on above: Result Comment: DR. SEWELL ORDERED RENAL Performed By: #### L 500.2500 ####[facility] [address] [place], [address] Basic Metabolic Profile (BMP) Normal 133-145 [facility] Comment on above: Result Comment: DR. SEWELL ORDERED RENAL Performed By: #### L 500.2500 ####[facility] [address] [place], [address] CBC-Complete Blood Cnt No Di ffon 03-01-2025 Erythrocyte distribution width (RBC) [Ratio] 14.6 % Normal 11.6-14.6 [facility] Comment on above: Performed By: #### L 509.1000, L100.0500, L503.6030, L500.3600 ####[facility] [address] [place], [address] Hematocrit (Bld) [Volume fraction] 33.9 % Low 37-47 [facility] Comment on above: Performed By: #### L 509.1000, L100.0500, L503.6030, L500.3600 ####[facility] [address] [place], [address] Hemoglobin (Bld) [Mass/Vol] 11.2 g/dL Low 12.0-15.0 [facility] Comment on above: Performed By: #### L 509.1000, L100.0500, L503.6030, L500.3600 ####[facility] [address] [place], [address] MCH (RBC) [Entitic mass] 32.5 pg High 27.0-32.0 [facility] Comment on above: Performed By: #### L 509.1000, L100.0500, L503.6030, L500.3600 ####[facility] [address] [place], [address] MCHC (RBC) [Mass/Vol] 33.0 g/dL Normal 32-36 [facility] Comment on above: Performed By: #### L 509.1000, L100.0500, L503.6030, L500.3600 ####[facility] [address] [place], [address] MCV (RBC) [Entitic vol] 98.3 fL Normal 81-99 [facility] Comment on above: Performed By: #### L 509.1000, L100.0500, L503.6030, L500.3600 ####[facility] [address] [place], [address] Platelet mean volume (Bld) [Entitic vol] 10.0 fL Normal 6.2-12.0 [facility] Comment on above: Performed By: #### L 509.1000, L100.0500, L503.6030, L500.3600 ####[facility] [address] [place], [address] Platelets (Bld) [#/Vol] 165 10*3/uL Normal 150-450 [facility] Comment on above: Performed By: #### L 509.1000, L100.0500, L503.6030, L500.3600 ####[facility] [address] [place], [address] RBC (Bld) [#/Vol] 3.45 10*6/uL Low 4.2-5.4 [facility] Comment on above: Performed By: #### L 509.1000, L100.0500, L503.6030, L500.3600 ####[facility] [address] [place], [address] RDW SD 52.1 fl High 35.1-43.9 [facility] Comment on above: Performed By: #### L 509.1000, L100.0500, L503.6030, L500.3600 ####[facility] [address] [place], [address] WBC (Bld) [#/Vol] 5.8 10*3/uL Normal 4.4-11.0 [facility] Comment on above: Performed By: #### L 509.1000, L100.0500, L503.6030, L500.3600 ####[facility] [address] [place], [address] Carbon dioxide, total [Moles /volume] in Central venous bloodOrdered By: Dacia Sewell on 03-01-2025 CO2 [Moles/Vol] 21.5 mmol/L 21.0-32.0 [facility] Chloride assayOrdered By: Julia Sewell on 03-01-2025 Chloride [Moles/Vol] 108 mmol/L 98-108 [facility] Erythrocyte distribution wid th ratioOrdered By: Dacia Sewell on 03-01-2025 Erythrocyte distribution width (RBC) [Ratio] 14.6 % 11.6-14.6 [facility] Erythrocyte distribution wid th standard deviationOrdered By: Dacia Sewell on 03-01-2025 Erythrocyte distribution width (RBC) [Ratio] 52.1 fl High 35.1-43.9 [facility] Glomerular filtration rate ( GFR) estimation/1.73 sq m using serum, plasma, or whole bOrdered By: Dacia Sewell on 03-01-2025 GFR/1.73 sq M.predicted among non-blacks MDRD (S/P/Bld) [Vol rate/Area] 33 mL/min/{1.73_m2} Low >60 [facility] Comment on above: mL/min/1.73m2 CKD-EP I Creatinine Equation (2020) Hematocrit Auto (Bld) [Volum e fraction]Ordered By: Dacia Sewell on 03-01-2025 Hematocrit (Bld) [Volume fraction] 33.9 % Low 37-47 [facility] Hemoglobin measurementOrdere d By: Dacia Sewell on 03-01-2025 Hemoglobin (Bld) [Mass/Vol] 11.2 g/dL Low 12.0-15.0 [facility] Iron measurement (mass/mass) Ordered By: Dacia Sewell on 03-01-2025 Iron (Unsp spec) [Mass/Mass] 53 ug/dL 50-170 [facility] Iron+Iron Binding Capacityon 03-01-2025 TIBC 233 ug/dL Low 250-450 [facility] Comment on above: Performed By: #### L 509.1000, L100.0500, L503.6030, L500.3600 ####[facility] [address] [place], [address] MCV (mean corpuscular volume ) determinationOrdered By: Dacia Sewell on 03-01-2025 MCV (RBC) [Entitic vol] 98.3 fL 81-99 [facility] Mean corpuscular hemoglobin (MCH) determinationOrdered By: Dacia Sewell on 03-01-2025 MCH (RBC) [Entitic mass] 32.5 pg High 27.0-32.0 [facility] Mean corpuscular hemoglobin concentration (MCHC) determinationOrdered By: Dacia Sewell on 03-01-2025 MCHC (RBC) [Mass/Vol] 33.0 g/dL 32-36 [facility] Mean platelet volume determi nationOrdered By: Dacia Sewell on 03-01-2025 Platelet mean volume (Bld) [Entitic vol] 10.0 fL 6.2-12.0 [facility] No Panel InformationOrdered By: Dacia Sewell on 03-01-2025 Unsaturated Iron Binding Capacity 180 ug/dL Low 228-428 [facility] PTHINon 03-01-2025 PTH 88 pg/mL High 11-61 [facility] Comment on above: Performed By: #### L 509.1000, L100.0500, L503.6030, L500.3600 ####[facility] [address] [place], [address] Platelet countOrdered By: Julia Sewell on 03-01-2025 Platelets (Bld) [#/Vol] 165 10*3/uL 150-450 [facility] Potassium measurement (mass/ volume)Ordered By: Dacia Sewell on 03-01-2025 Potassium (Unsp spec) [Mass/Vol] 3.9 mmol/L 3.3-5.1 [facility] RBC Auto (Bld) [#/Vol]Ordere d By: Dacia Sewell on 03-01-2025 RBC (Bld) [#/Vol] 3.45 10*6/uL Low 4.2-5.4 [facility] Renal Profileon 03-01-2025 Albumin [Mass/Vol] 4.0 g/dL Normal 3.4-4.8 [facility] Comment on above: Performed By: #### L 509.1000, L100.0500, L503.6030, L500.3600 ####[facility] [address] [place], [address] BUN/CRE 19.9 RATIO Normal 10-20 [facility] Comment on above: Performed By: #### L 509.1000, L100.0500, L503.6030, L500.3600 ####[facility] [address] [place], [address] Calcium [Mass/Vol] 9.0 mg/dL Normal 7.6-11.0 [facility] Comment on above: Performed By: #### L 509.1000, L100.0500, L503.6030, L500.3600 ####[facility] [address] [place], [address] Chloride [Moles/Vol] 108 mmol/L Normal 98-108 [facility] Comment on above: Performed By: #### L 509.1000, L100.0500, L503.6030, L500.3600 ####[facility] [address] [place], [address] CO2 [Moles/Vol] 21.5 mmol/L Normal 21.0-32.0 [facility] Comment on above: Performed By: #### L 509.1000, L100.0500, L503.6030, L500.3600 ####[facility] [address] [place], [address] Creatinine [Mass/Vol] 1.53 mg/dL High 0.70-1.20 [facility] Comment on above: Performed By: #### L 509.1000, L100.0500, L503.6030, L500.3600 ####[facility] [address] [place], [address] GAP 11 Normal 5-15 [facility] Comment on above: Performed By: #### L 509.1000, L100.0500, L503.6030, L500.3600 ####[facility] [address] [place], [address] GFR/1.73 sq M.predicted among non-blacks MDRD (S/P/Bld) [Vol rate/Area] 33 mL/min/{1.73_m2} Low >60 [facility] Comment on above: Result Comment: mL/m in/1.73m2 CKD-EPI Creatinine Equation (2020) Performed By: #### L 509.1000, L100.0500, L503.6030, L500.3600 ####[facility] [address] [place], [address] Glucose [Mass/Vol] 106 mg/dL High 70-99 [facility] Comment on above: Performed By: #### L 509.1000, L100.0500, L503.6030, L500.3600 ####[facility] [address] [place], [address] Phosphate [Mass/Vol] 3.2 mg/dL Normal 2.7-4.5 [facility] Comment on above: Performed By: #### L 509.1000, L100.0500, L503.6030, L500.3600 ####[facility] [address] [place], [address] Potassium [Moles/Vol] 3.9 mmol/L Normal 3.3-5.1 [facility] Comment on above: Performed By: #### L 509.1000, L100.0500, L503.6030, L500.3600 ####[facility] [address], [address] Sodium [Moles/Vol] 140 mmol/L Normal 133-145 [facility] Comment on above: Performed By: #### L 509.1000, L100.0500, L503.6030, L500.3600 ####[facility] [address] [place], [address] Urea nitrogen [Mass/Vol] 30 mg/dL High 4-19 [facility] Comment on above: Performed By: #### L 509.1000, L100.0500, L503.6030, L500.3600 ####[facility] [address] [place], [address] Serum creatinine measurement (mass/volume)Ordered By: Dacia Sewell on 03-01-2025 Creatinine [Mass/Vol] 1.53 mg/dL High 0.70-1.20 [facility] Serum glucose measurement (m ass/volume)Ordered By: Dacia Sewell on 03-01-2025 Glucose [Mass/Vol] 106 mg/dL High 70-99 [facility] Serum or plasma albumin dex urement (mass/volume)Ordered By: Dacia Sewell on 03-01-2025 Albumin [Mass/Vol] 4.0 g/dL 3.4-4.8 [facility] Serum or plasma calcium dex urement (mass/volume)Ordered By: Dacia Sewell on 03-01-2025 Calcium [Mass/Vol] 9.0 mg/dL 7.6-11.0 [facility] Serum or plasma iron saturat ion measurement (mass fraction)Ordered By: Dacia Sewell on 03-01-2025 Iron saturation [Mass fraction] 22.7 % 13-59 [facility] Comment on above: Previous reported re sult: 23.0 %Edited by: DOMINGA on 03/01/25:1337 AMENDED REPORT 03/01/25 1337 IRON SATURATION previously reported as: 23.0 % Serum or plasma urea nitroge n measurement (mass/volume)Ordered By: Dacia Sewell on 03-01-2025 Urea nitrogen [Mass/Vol] 30 mg/dL High -19 [facility] Sodium levelOrdered By: Charlie Sewell on 03-01-2025 Sodium [Moles/Vol] 140 mmol/L 133-145 [facility] TSH DL <= 0.005 mIU/L QnOrde red By: Terrygamal Basilio on 03-01-2025 TSH Qn 5.350 uIU/mL High 0.300-4.200 [facility] Thyroid Stim Hormone (TSH)on 03-01-2025 TSH 5.350 uIU/mL High 0.300-4.200 [facility] Comment on above: Performed By: #### L 506.1001, L501.9520 ####[facility] [address] [place], [place], [address] Vitamin D,25 Hydroxyon 03-01 Vitamin D 25-OH 54.3 ng/mL Normal 30-100 [facility] Comment on above: Result Comment: Connie min D StatusDeficiency: <20 ng/mL (50nmol/L)Insufficiency: 20-30 ng/mL (50-75 nmol/L)Sufficiency: 30-100 ng/mL (75-250 nmol/L)Toxicity: >100 ng/mL (>250 nmol/L) Performed By: #### L 506.1001, L501.9520 ####[facility] [address] [place], [place], [address] White blood cell (WBC) count Ordered By: Dacia Sewell on 03-01-2025 WBC (Bld) [#/Vol] 5.8 10*3/uL 4.4-11.0 [facility] Laboratory - Chemistry and C hemistry - challengeOrdered By: Jessica Adler on 02-22-2025 Bilirubin Ql (U) Moderate (2+) [facility] Glucose Ql (U) Negative [facility] Ketones Ql (U) Negative [facility] pH (U) 6 [pH] [facility] Specific gravity (U) [Rel density] 1.020 [facility] Urobilinogen (U) [Mass/Vol] Negative [facility] Laboratory - Hematology and Cell countsOrdered By: Jessica Adler on 02-22-2025 Hemoglobin Ql (U) Negative [facility] Laboratory - UrinalysisOrder ed By: Jessica Adler on 02-22-2025 Nitrite Ql (U) Negative [facility] Protein Ql (U) 1+ [facility] MR/BMS.BUSon 02-22-2025 MR/BMS.BUS Normal [facility] No Panel InformationOrdered By: Jessica Adler on 02-22-2025 Urine Leukocytes Negatve [facility] Urine Non-Hemolyzed Blood Negative [facility] Echo, Limited Studyon 2024 Echo, Limited Study Normal [facility] Limited echocardiogram repor tOrdered By: Fredis Marie on 02-02-2025 Study report [facility] Work Phone: Cardiology Visit Reporton Cardiology Visit Report Normal [facility] CNOVon 01-03-2025 CNOV Office Visit (INTMWS) REINIER ELIZABETH ([id number]) 1935 F NFR Date Time Provider Department 01/03/25 2:00 PM ANAY SCHULER INTMWS During your visit [...] (PROLIA SUBCUTA (more content not included)... Normal [facility] CNOVon 12-21-2024 CNOV Office Visit (INTMWS) REINIER ELIZABETH ([id number]) 1935 F NFR Date Time Provider Department 12/21/24 2:00 PM SILVIO DRAKE During your visit today, we recorded the following information about you: Pulse Respiration Blood pressure Weight 56/minute 16/minute 194/60 58 kg Silvio Drake APRN.CNP 12/21/2024 6:10 PM Signed CC: Patient presents [...] 2 (age, bleeding) At risk for stroke [id number] = 4 (HTN, age2, female gender) Benign [...] Glaucoma - right eye left eye - [facility] . Dr Gao REPAIR FIRST ABDOMINAL [...] days. b (more content not included)... Normal [facility] Hemoccult Stl Ql IAon 2024 Lower GI hemoglobin IA Ql (Stl) Negative Normal Negative [facility] Comment on above: Order Comment: Speci men Type: STOOL SPECIMEN Ordering Facility: [facility] Address: [address] [place] [address] Performed By: #### 2 9771-3 #### [facility] CLIA [id number] [address] [place] [address] [facility] Comprehensive metabolic 2000 panelon 12-13-2024 Albumin [Mass/Vol] 4 g/dL 3.9 - 4.9 g/dL [facility] ALP [Catalytic activity/Vol] 53 U/L 34 - 123 U/L [facility] ALT [Catalytic activity/Vol] 19 U/L 7 - 38 U/L [facility] Anion gap [Moles/Vol] 14 mmol/L 8 - 15 mmol/L [facility] AST [Catalytic activity/Vol] 27 U/L 13 - 35 U/L [facility] Bilirubin [Mass/Vol] 0.9 mg/dL 0.2 - 1 .3 mg/dL [facility] Calcium [Mass/Vol] 8.5 mg/dL 8.5 - 10. 2 mg/dL [facility] Chloride [Moles/Vol] 106 mmol/L 98 - 10 7 mmol/L [facility] CO2 [Moles/Vol] 18 mmol/L Low 22 - 30 mmol/L [facility] Creatinine [Mass/Vol] 1.27 mg/dL High 0.58 - 0.96 mg/dL [facility] GFR/1.73 sq M.predicted among non-blacks MDRD (S/P/Bld) [Vol rate/Area] 41 mL/min/{1.73_m2} Low - PINF [facility] Comment on above: Estimated Glomerular Filtration [...] 109 mg/dL High 74 - 99 mg/dL [facility] Comment on above: The [place] Di[employer] Association (ADA) provides guidance for [...] Standards of Medical Care in Diabetes 2016, [place] [employer]. Diabetes Care. 2016.39(Suppl 1). Interpretation and review of laboratory results Abnormal [facility] Potassium [Moles/Vol] 4.3 mmol/L 3.7 - 5.1 mmol/L [facility] Protein [Mass/Vol] 6.7 g/dL 6.3 - 8.0 g/dL [facility] Sodium [Moles/Vol] 138 mmol/L 136 - 144 mmol/L [facility] Urea nitrogen [Mass/Vol] 21 mg/dL 7 - 21 mg/d L [facility] MAGNESIUMon 12-13-2024 Magnesium [Mass/Vol] 1.7 mg/dL 1.7 - 2 .3 mg/dL [facility] Magnesium [Mass/Vol]on 12-13 Interpretation and review of laboratory results Normal [facility] THYROID STIMULATING HORMONEo n 12-13-2024 TSH Qn 4.32 m[IU]/L High [facility] TSH Qnon 12-13-2024 Interpretation and review of laboratory results Abnormal [facility] CBC W Auto Differential pane l (Bld)on 12-12-2024 Basophils (Bld) [#/Vol] 0.07 10*3/uL Normal <0.11 [facility] Comment on above: Order Comment: Speci men Type: BLOOD SPECIMEN Ordering Facility: [facility] Address: [address] [place] [address] Performed By: #### 5 7021-8 #### [facility] CLIA [id number] [address] [place] [address] [place] Basophils/100 WBC (Bld) 1.8 % Normal [facility] Comment on above: Order Comment: Speci men Type: BLOOD SPECIMEN Ordering Facility: [facility] Address: [address] [place] [address] Performed By: #### 5 7021-8 #### [facility] CLIA [id number] [address] [place] [address] [place] Differential cell count method Nom (Bld) Auto Normal [facility] Comment on above: Order Comment: Speci men Type: BLOOD SPECIMEN Ordering Facility: [facility] Address: [address] [place] [address] Performed By: #### 5 7021-8 #### [facility] CLIA [id number] [address] [place] [address] [place] Eosinophils (Bld) [#/Vol] 0.09 10*3/uL Normal <0.46 [facility] Comment on above: Order Comment: Speci men Type: BLOOD SPECIMEN Ordering Facility: [facility] Address: [address] [place] [address] Performed By: #### 5 7021-8 #### [facility] CLIA [id number] [address] [place] [address] [place] Eosinophils/100 WBC (Bld) 2.3 % Normal [facility] Comment on above: Order Comment: Speci men Type: BLOOD SPECIMEN Ordering Facility: [facility] Address: [address] [place] [address] Performed By: #### 5 7021-8 #### [facility] CLIA [id number] [address] [id number] [address] [place] Erythrocyte distribution width (RBC) [Ratio] 14.3 % Normal 11.5-15.0 [facility] Comment on above: Order Comment: Speci men Type: BLOOD SPECIMEN Ordering Facility: [facility] Address: [address] [place] [address] Performed By: #### 5 7021-8 #### [facility] CLIA [id number] [address] [place] [address] [place] Hematocrit (Bld) [Volume fraction] 33.3 % Low 36.0-46.0 [facility] Comment on above: Order Comment: Speci men Type: BLOOD SPECIMEN Ordering Facility: [facility] Address: [address] [place] [address] Performed By: #### 5 7021-8 #### [facility] CLIA [id number] [address] [place] [address] [place] Hemoglobin (Bld) [Mass/Vol] 10.8 g/dL Low 11.5-15.5 [facility] Comment on above: Order Comment: Speci men Type: BLOOD SPECIMEN Ordering Facility: [facility] Address: [address] [place] [address] Performed By: #### 5 7021-8 #### [facility] CLIA [id number] [address] [place] [address] [place] Immature granulocytes (Bld) [#/Vol] 0.08 10*3/uL Normal <0.10 [facility] Comment on above: Order Comment: Speci men Type: BLOOD SPECIMEN Ordering Facility: [facility] Address: [address] [place] [address] Performed By: #### 5 7021-8 #### [facility] CLIA [id number] [address] [place] [address] [place] Immature granulocytes/100 WBC (Bld) 2.1 % Normal [facility] Comment on above: Order Comment: Speci men Type: BLOOD SPECIMEN Ordering Facility: [facility] Address: [address] [place] [address] Performed By: #### 5 7021-8 #### [facility] CLIA [id number] [address] [place] [address] [place] Lymphocytes (Bld) [#/Vol] 0.78 10*3/uL Low 1.00-4.00 [facility] Comment on above: Order Comment: Speci men Type: BLOOD SPECIMEN Ordering Facility: [facility] Address: [address] [place] [address] Performed By: #### 5 7021-8 #### [facility] CLIA [id number] [address] [place] [address] [place] Lymphocytes/100 WBC (Bld) 20.2 % Normal [facility] Comment on above: Order Comment: Speci men Type: BLOOD SPECIMEN Ordering Facility: [facility] Address: [address] [place] [address] Performed By: #### 5 7021-8 #### [facility] CLIA [id number] [address] [place] [address] [place] MCH (RBC) [Entitic mass] 32.0 pg Normal 26.0-34.0 [facility] Comment on above: Order Comment: Speci men Type: BLOOD SPECIMEN Ordering Facility: [facility] Address: [address] [place] [address] Performed By: #### 5 7021-8 #### [facility] CLIA [id number] [address] [place] [address] [place] MCHC (RBC) [Mass/Vol] 32.4 g/dL Normal 30.5-36.0 [facility] Comment on above: Order Comment: Speci men Type: BLOOD SPECIMEN Ordering Facility: [facility] Address: [address] [place] [address] Performed By: #### 5 7021-8 #### [facility] CLIA [id number] [address] [place] [address] [place] MCV (RBC) [Entitic vol] 98.5 fL Normal 80.0-100.[address] [facility] Comment on above: Order Comment: Speci men Type: BLOOD SPECIMEN Ordering Facility: [facility] Address: [address] [place] [address] Performed By: #### 5 7021-8 #### [facility] CLIA [id number] [address] [place] [address] [place] Monocytes (Bld) [#/Vol] 0.36 10*3/uL Normal <0.87 [facility] Comment on above: Order Comment: Speci men Type: BLOOD SPECIMEN Ordering Facility: [facility] Address: [address] [place] [address] Performed By: #### 5 7021-8 #### [facility] CLIA [id number] [address] [place] [address] [place] Monocytes/100 WBC (Bld) 9.3 % Normal [facility] Comment on above: Order Comment: Speci men Type: BLOOD SPECIMEN Ordering Facility: [facility] Address: [address] [place] [address] Performed By: #### 5 7021-8 #### [facility] CLIA [id number] [address] [place] [address] [place] Neutrophils (Bld) [#/Vol] 2.48 10*3/uL Normal 1.45-7.50 [facility] Comment on above: Order Comment: Speci men Type: BLOOD SPECIMEN Ordering Facility: [facility] Address: [address] [place] [address] Performed By: #### 5 7021-8 #### [facility] CLIA [id number] [address] [place] [address] [place] Neutrophils/100 WBC (Bld) 64.3 % Normal [facility] Comment on above: Order Comment: Speci men Type: BLOOD SPECIMEN Ordering Facility: [facility] Address: [address] [place] [address] Performed By: #### 5 7021-8 #### [facility] CLIA [id number] [address] [place] [address] [place] Nucleated RBC (Bld) [#/Vol] 10*3/uL Normal <0.01 [facility] Comment on above: Order Comment: Speci men Type: BLOOD SPECIMEN Ordering Facility: [facility] Address: [address] [place] [address] Performed By: #### 5 7021-8 #### [facility] CLIA [id number] [address] [place] [address] [place] Nucleated RBC/100 WBC (Bld) [Ratio] 0.0 /100 WBC Normal [facility] Comment on above: Order Comment: Speci men Type: BLOOD SPECIMEN Ordering Facility: [facility] Address: [address] [place] [address] Performed By: #### 5 7021-8 #### [facility] CLIA [id number] [address] [place] [address] [place] Platelet mean volume (Bld) [Entitic vol] 10.5 fL Normal 9.0-12.7 [facility] Comment on above: Order Comment: Speci men Type: BLOOD SPECIMEN Ordering Facility: [facility] Address: [address] [place] [address] Performed By: #### 5 7021-8 #### [facility] CLIA [id number] [address] [place] [address] [place] Platelets (Bld) [#/Vol] 143 10*3/uL Low 150-400 [facility] Comment on above: Order Comment: Speci men Type: BLOOD SPECIMEN Ordering Facility: [facility] Address: [address] [place] [address] Performed By: #### 5 7021-8 #### [facility] CLIA [id number] [address] [place] [address] [place] RBC (Bld) [#/Vol] 3.38 10*6/uL Low 3.90-5.20 [facility] Comment on above: Order Comment: Speci men Type: BLOOD SPECIMEN Ordering Facility: [facility] Address: [address] [place] [address] Performed By: #### 5 7021-8 #### [facility] CLIA [id number] [address] [place] [address] [place] WBC (Bld) [#/Vol] 3.86 10*3/uL Normal 3.70-11.00 [facility] Comment on above: Order Comment: Speci men Type: BLOOD SPECIMEN Ordering Facility: [facility] Address: [address] [place] [address] Performed By: #### 5 7021-8 #### [facility] CLIA [id number] [address] [place] [address] [place] CNOVon 12-12-2024 CNOV Office Visit (INTMWS) ELIZABETHREINIER ([id number]) 1935 F NFR Date Time Provider Department 12/12/24 1:40 PM SILVIO DRAKE INTMWS During your visit today, we recorded the following information about you: Temperature Pulse Respiration Blood pressure 97.6 degrees 62/minute 16/minute 158/92 Weight 61.7 kg Silvio Drake APRN.INJECTOR ASSEMBLER 12/14/2024 8:49 AM Signed CC: Patient presents with: Head Congestion: Head congestion, productive cough 5 days HPI Reinier Elizabeth is a 89 year old female who presents today for sinus concerns. Recording using ambient AI software for draft documentation of the visit was discussed with the patient/authorized business office representative; all questions welcomed and answered. Patient/authorized business office representative agreed to proceed Cough and Congestion: [...] symptoms. - Using Tussin cough syrup from [employer], labeled safe for hypertension and diabetes. - [...] 2 (age, bleeding) At risk for stroke [id number] = 4 (HTN, age2, female gender) Benign [...] May. right eye Jun. left eye - [facility] . Dr Gao REPAIR FIRST ABDOMINAL [...] losartan (COZAAR) (more content not included)... Normal [facility] metabolic 2000 panelon 12-12-2024 Albumin [Mass/Vol] 4.0 g/dL Normal 3.9-4.9 [facility] Comment on above: Order Comment: Speci men Type: BLOOD SPECIMEN Ordering Facility: [facility] Address: [address] [id number] Performed By: #### 2 432-8, 2132-02 #### [facility] CLIA [id number] [address] [place] [address] [place] ALP [Catalytic activity/Vol] 53 U/L Normal 34-123 [facility] Comment on above: Order Comment: Speci men Type: BLOOD SPECIMEN Ordering Facility: [facility] Address: [address] [place], [place] [address] Performed By: #### 2 4328, 2132-02 #### [facility] CLIA [id number] [address] [place] [address] [place] ALT [Catalytic activity/Vol] 19 U/L Normal 7-38 [facility] Comment on above: Order Comment: Speci men Type: BLOOD SPECIMEN Ordering Facility: [facility] Address: [address] [place], [place] [address] Performed By: #### 2 4328, 2132-02 #### [facility] CLIA [id number] [address] [place] [address] [place] Anion gap [Moles/Vol] 14 mmol/L Normal 8-15 [facility] Comment on above: Order Comment: Speci men Type: BLOOD SPECIMEN Ordering Facility: [facility] Address: [address] [id number] Performed By: #### 2 4323-8, 2132-02 #### [facility] CLIA [id number] [address] [place] [address] [place] AST [Catalytic activity/Vol] 27 U/L Normal 13-35 [facility] Comment on above: Order Comment: Speci men Type: BLOOD SPECIMEN Ordering Facility: [facility] Address: [address] [place] [address] Performed By: #### 2 4323-01, 2132-02 #### [facility] CLIA [id number] [address] [place], [place] [address] [place] Bilirubin [Mass/Vol] 0.9 mg/dL Normal 0.2-1.3 [facility] Comment on above: Order Comment: Speci men Type: BLOOD SPECIMEN Ordering Facility: [facility] Address: [address] [place], [place] [address] Performed By: #### 2 4323-01, 2132-02 #### [facility] CLIA [id number] [address] [place] [address] [place] Calcium [Mass/Vol] 8.5 mg/dL Normal 8.5-10.2 [facility] Comment on above: Order Comment: Speci men Type: BLOOD SPECIMEN Ordering Facility: [facility] Address: [address] [place] [address] Performed By: #### 2 4323-01, 2132-02 #### [facility] CLIA [id number] [address] [place] [address] [place] Chloride [Moles/Vol] 106 mmol/L Normal 98-107 [facility] Comment on above: Order Comment: Speci men Type: BLOOD SPECIMEN Ordering Facility: [facility] Address: [address] [place], [place] [address] Performed By: #### 2 4323-01, 2132-02 #### [facility] CLIA [id number] [address] [place], [place] [address] [place] CO2 [Moles/Vol] 18 mmol/L Low 22-30 [facility] Comment on above: Order Comment: Speci men Type: BLOOD SPECIMEN Ordering Facility: [facility] Address: [address] [place], [place] [address] Performed By: #### 2 4323-01, 2132-02 #### [facility] CLIA [id number] [address] [place], [place] [address] [place] Creatinine [Mass/Vol] 1.27 mg/dL High 0.58-0.96 [facility] Comment on above: Order Comment: Claudia vilchis Type: BLOOD SPECIMEN Ordering Facility: [facility] Address: [address] [place] [address] Performed By: #### 2 4328, 2132-02 #### [facility] CLIA [id number] [address] [place] [address] [place] Creatinine and Glomerular filtration rate.predicted panel (S/P/Bld) 41 mL/min/1.73m??? Low >=60 [facility] Comment on above: Order Comment: Claudia vilchis Type: BLOOD SPECIMEN Ordering Facility: [facility] Address: [address] [place] [address] Result Comment: Lien mated Glomerular Filtration Rate [...] reflect actual GFR. Performed By: #### 2 43238, 2132-02 #### [facility] CLIA [id number] [address] [place] [address] [place] Glucose [Mass/Vol] 109 mg/dL High 74-99 [facility] Comment on above: Order Comment: Claudia vilchis Type: BLOOD SPECIMEN Ordering Facility: [facility] Address: [address] [place] [address] Result Comment: The [place] [employer] (ADA) provides guidance for cutoff [...] Standards of Medical Care in Diabetes 2016, [place] [employer]. Diabetes Care. 2016.39(Suppl 1). Performed By: #### 2 4323-01, 2132-02 #### [facility] CLIA [id number] [address] [place] [address] [place] Potassium [Moles/Vol] 4.3 mmol/L Normal 3.7-5.1 [facility] Comment on above: Order Comment: Speci men Type: BLOOD SPECIMEN Ordering Facility: [facility] Address: [address] [place] [address] Performed By: #### 2 4323-01, 2132-02 #### [facility] CLIA [id number] [address] [place] [address] [place] Protein [Mass/Vol] 6.7 g/dL Normal 6.3-8.0 [facility] Comment on above: Order Comment: Speci men Type: BLOOD SPECIMEN Ordering Facility: [facility] Address: [address] [place] [address] Performed By: #### 2 4323-01, 2132-02 #### [facility] CLIA [id number] [address] [place] [address] [place] Sodium [Moles/Vol] 138 mmol/L Normal 136-144 [facility] Comment on above: Order Comment: Speci men Type: BLOOD SPECIMEN Ordering Facility: [facility] Address: [address] [place], [place] [address] Performed By: #### 2 4323-01, 2132-02 #### [facility] CLIA [id number] [address] [place] [address] [place] Urea nitrogen [Mass/Vol] 21 mg/dL Normal 7-21 [facility] Comment on above: Order Comment: Speci men Type: BLOOD SPECIMEN Ordering Facility: [facility] Address: [address] [place] [address] Performed By: #### 2 4328, 2132-02 #### [facility] CLIA [id number] [address] [place] [address] [place] Ferritin SerPl-mCncon 2024 Ferritin [Mass/Vol] 223.0 ng/mL High 14.7-205.1 [facility] Comment on above: Order Comment: Speci men Type: BLOOD SPECIMEN Ordering Facility: [facility] Address: [address] [place] [address] Performed By: #### 2 4323-8, 2132-02 #### [facility] CLIA [id number] [address] [place] [address] [place] Iron and Iron binding capaci ty panelon 12-12-2024 Iron [Mass/Vol] 46 ug/dL Normal 41-186 [facility] Comment on above: Order Comment: Speci men Type: BLOOD SPECIMEN Ordering Facility: [facility] Address: [address] [place] [address] Performed By: #### 2 4328, 2132-02 #### [facility] CLIA [id number] [address] [place] [address] [place] Iron binding capacity [Mass/Vol] 204 ug/dL Low 232-386 [facility] Comment on above: Order Comment: Speci men Type: BLOOD SPECIMEN Ordering Facility: [facility] Address: [address] [place] [address] Performed By: #### 2 4323-8, 2132-02 #### [facility] CLIA [id number] [address] [place], [place] [id number] [place] Iron/TIBC [Molar ratio] 22.5 % Normal 15.0-57.0 [facility] Comment on above: Order Comment: Speci men Type: BLOOD SPECIMEN Ordering Facility: [facility] Address: [address] [place] [address] Performed By: #### 2 4323-8, 2132-02 #### [facility] CLIA [id number] [address] [place] [address] [place] Magnesium SerPl-mCncon 12-12 Magnesium [Mass/Vol] 1.7 mg/dL Normal 1.7-2.3 [facility] Comment on above: Order Comment: Speci men Type: BLOOD SPECIMEN Ordering Facility: [facility] Address: [address] [place] [address] Performed By: #### 2 4323-8, 2132-02 #### [facility] CLIA [id number] [address] [place] [address] [place] TSH SerPl-aCncon 12-12-2024 TSH Qn 4.320 m[IU]/L High 0.270-4.200 [facility] Comment on above: Order Comment: Speci men Type: BLOOD SPECIMEN Ordering Facility: [facility] Address: [address] [place] [address] Performed By: #### 2 4323-8, 2132-02 #### [facility] CLIA [id number] [address] [place] [address] [place] Vit B12 SerPl-mCncon 025 Cobalamin (Vitamin B12) [Mass/Vol] pg/mL High 232-1245 [facility] Comment on above: Order Comment: Speci men Type: BLOOD SPECIMEN Ordering Facility: [facility] Address: [address] [place] [address] Performed By: #### 2 4323-8, 2132-02 #### [facility] CLIA [id number] [address] [place] [address] [place] XR CHEST 2V FRONTAL/LATon XR CHEST 2V [...] with interval decrease in right pleural effusion. Welder Machine Operator: CANDY Transcribe Date/Time: Dec 14 2024 4:55P Dictated by : BALWINDER GILL MD This examination was interpreted and the report reviewed and electronically signed by: BALWINDER GILL MD on Dec 14 2024 4:55PM EST [id number] CN Normal [facility] REINIER ELIZABETH ([id number]) 1935 F NFR Date Time Provider Department 11/29/24 ANAY SCHULER INTMWS During your visit today, we recorded the following information about you: Brianne Toribio RN 2024 1:01 PM Signed Patient was seen today by Yolette DENNISON with [facility] following ER visit. Yolette asking for one more visit next week to review medication changes and discharge from services. Call back number is [phone]. JUMA Katz Chitra, MD 2024 5:32 PM Signed Agree for one more visit Anay Iniguez MD, Krystle, JUMA 11/30/2024 8:13 AM Signed Call placed to [...] IF UNABLE, PLEASE REFER TO [facility]. DX: EDEMA - latanoprost (XALATAN) 0.005 % [...] Hypomagnesemia [E83.42] more content not included)... Normal [facility] CNOVon 11-28-2024 CNOV Office Visit (INTMWS) REINIER ELIZABETH ([id number]) 1935 F NFR Date Time Provider Department 11/28/24 3:40 PM ANAY SCHULER INTMWS During your visit today, we recorded the following information about you: Pulse Respiration Blood pressure Weight 56/minute 18/minute 152/94 63.1 kg Anay Schuler MD 11/28/2024 4:49 PM Signed Pt seen by Cardiology on 11/25/24. [facility] ED 11/19/24: History of Present Illness Chief [...] sinus bradycardia with a rate of 48. VA interval, QRS interval, and QTc intervals were all normal. Byron was normal. There are no acute ST [...] check your (more content not included)... Normal [facility] Cardiology Visit Reporton Cardiology Visit Report Normal [facility] 12 Lead EKGon 11-19-2024 12 Lead EKG Normal [facility] Absolute lymphocyte countOrd ered By: Beto Keene on 11-19-2024 Lymphocytes Auto (Unsp spec) [#/Vol] 1.22 10*3/uL 0.83-4.51 [facility] Absolute neutrophil countOrd ered By: Beto Keene on 11-19-2024 Neutrophils (Bld) [#/Vol] 4.3 10*3/uL 2.0-7.7 [facility] Activated partial thrombopla stin time (aPTT) in platelet poor plasma by coagulation aOrdered By: Beto Keene on 11-19-2024 aPTT Coag (PPP) [Time] 39.3 s High 24.1-36.2 [facility] Anion gap in Serum or Plasma Ordered By: Beto Keene on 11-19-2024 Anion gap [Moles/Vol] 12 mmol/L - [facility] Automated lymphocyte count a s percentage of total leukocytesOrdered By: Beto Keene on 11-19-2024 Lymphocytes/100 WBC Auto (Unsp spec) 19.9 % [facility] BUN/creatinine ratioOrdered By: Beto Keene on 11-19-2024 Urea nitrogen/Creatinine [Mass ratio] 16.9 mg/mg - [facility] Basic Metabolic Profile (BMP )on 11-19-2024 BUN/CRE 16.9 RATIO Normal 04-17 [facility] Comment on above: Performed By: #### L 300.3900, L300.4310, L100.0100, L500.2500, L501.4021, L501.5200 ####[facility] [address] [place], [address] Calcium [Mass/Vol] 7.3 mg/dL Low 7.6-11.0 [facility] Comment on above: Performed By: #### L 300.3900, L300.4310, L100.0100, L500.2500, L501.4021, L501.5200 ####[facility] [address] [place], [address] Chloride [Moles/Vol] 109 mmol/L High 98-108 [facility] Comment on above: Performed By: #### L 300.3900, L300.4310, L100.0100, L500.2500, L501.4021, L501.5200 ####[facility] [address] [place], [address] CO2 [Moles/Vol] 16.5 mmol/L Low 21.0-32.0 [facility] Comment on above: Performed By: #### L 300.3900, L300.4310, L100.0100, L500.2500, L501.4021, L501.5200 ####[facility] [address] [place], [address] Creatinine [Mass/Vol] 1.63 mg/dL High 0.70-1.20 [facility] Comment on above: Performed By: #### L 300.3900, L300.4310, L100.0100, L500.2500, L501.4021, L501.5200 ####[facility] [address] [place], [address] ECRCL 21.24 ml/min Low 50-250 [facility] Comment on above: Performed By: #### L 300.3900, L300.4310, L100.0100, L500.2500, L501.4021, L501.5200 ####[facility] [address] [place], [address] GAP 12 Normal 5-15 [facility] Comment on above: Performed By: #### L 300.3900, L300.4310, L100.0100, L500.2500, L501.4021, L501.5200 ####[facility] [address] [place], [address] GFR/1.73 sq M.predicted among non-blacks MDRD (S/P/Bld) [Vol rate/Area] 30 mL/min/{1.73_m2} Low >60 [facility] Comment on above: Result Comment: mL/m in/1.73m2 CKD-EPI Creatinine Equation (2020) Performed By: #### L 300.3900, L300.4310, L100.0100, L500.2500, L501.4021, L501.5200 ####[facility] [address] [place], [address] Glucose [Mass/Vol] 102 mg/dL High 70-99 [facility] Comment on above: Performed By: #### L 300.3900, L300.4310, L100.0100, L500.2500, L501.4021, L501.5200 ####[facility] [address] [place], [address] Potassium [Moles/Vol] 3.9 mmol/L Normal 3.3-5.1 [facility] Comment on above: Result Comment: Hemo lysis present, Results??could be affected.?? Performed By: #### L 300.3900, L300.4310, L100.0100, L500.2500, L501.4021, L501.5200 ####[facility] [address] [place], [address] Sodium [Moles/Vol] 138 mmol/L Normal 133-145 [facility] Comment on above: Performed By: #### L 300.3900, L300.4310, L100.0100, L500.2500, L501.4021, L501.5200 ####[facility] [address] [place], [address] Urea nitrogen [Mass/Vol] 28 mg/dL High 4-19 [facility] Comment on above: Performed By: #### L 300.3900, L300.4310, L100.0100, L500.2500, L501.4021, L501.5200 ####[facility] [address] [place], [address] Basophil percentageOrdered B y: Beto Keene on 11-19-2024 Basophils/100 WBC (Bld) 0.7 % 0-1 [facility] CBC W/Diff, Automatedon 10-28 Absolute Lymph 1.22 X10 3/uL Normal 0.83-4.51 [facility] Comment on above: Performed By: #### L 300.3900, L300.4310, L100.0100, L500.2500, L501.4021, L501.5200 ####[facility] [address] [place], [address] Absolute Neut 4.3 X10 3/uL Normal 2.0-7.7 [facility] Comment on above: Performed By: #### L 300.3900, L300.4310, L100.0100, L500.2500, L501.4021, L501.5200 ####[facility] [address] [place], [address] Basophils/100 WBC (Bld) 0.7 % Normal 0-1 [facility] Comment on above: Performed By: #### L 300.3900, L300.4310, L100.0100, L500.2500, L501.4021, L501.5200 ####[facility] [address] [place], [address] Eosinophils/100 WBC (Bld) 2.3 % Normal 0-5 [facility] Comment on above: Performed By: #### L 300.3900, L300.4310, L100.0100, L500.2500, L501.4021, L501.5200 ####[facility] [address] [place] [place], [address] Erythrocyte distribution width (RBC) [Ratio] 14.3 % Normal 11.6-14.6 [facility] Comment on above: Performed By: #### L 300.3900, L300.4310, L100.0100, L500.2500, L501.4021, L501.5200 ####[facility] [address] [place], [address] Hematocrit (Bld) [Volume fraction] 33.5 % Low 37-47 [facility] Comment on above: Performed By: #### L 300.3900, L300.4310, L100.0100, L500.2500, L501.4021, L501.5200 ####[facility] [address] [place], [address] Hemoglobin (Bld) [Mass/Vol] 10.7 g/dL Low 12.0-15.0 [facility] Comment on above: Performed By: #### L 300.3900, L300.4310, L100.0100, L500.2500, L501.4021, L501.5200 ####[facility] [address] [place], [address] IG% 0.300 Normal 0.0-0.9 [facility] Comment on above: Result Comment: IG% - Immature Granulocytes (promyelocytes, myelocytes andmetamyelocytes) > 1% indicates that a LEFT SHIFT is Present. Performed By: #### L 300.3900, L300.4310, L100.0100, L500.2500, L501.4021, L501.5200 ####[facility] [address] [place], [address] Lymphocytes/100 WBC (Bld) 19.9 % Normal 19-41 [facility] Comment on above: Performed By: #### L 300.3900, L300.4310, L100.0100, L500.2500, L501.4021, L501.5200 ####[facility] [address] [place], [address] MCH (RBC) [Entitic mass] 31.9 pg Normal 27.0-32.0 [facility] Comment on above: Performed By: #### L 300.3900, L300.4310, L100.0100, L500.2500, L501.4021, L501.5200 ####[facility] [address] [place], [address] MCHC (RBC) [Mass/Vol] 31.9 g/dL Low 32-36 [facility] Comment on above: Performed By: #### L 300.3900, L300.4310, L100.0100, L500.2500, L501.4021, L501.5200 ####[facility] [address] [place], [address] MCV (RBC) [Entitic vol] 100.0 fL High 81-99 [facility] Comment on above: Performed By: #### L 300.3900, L300.4310, L100.0100, L500.2500, L501.4021, L501.5200 ####[facility] [address] [place], [address] Monocytes/100 WBC (Bld) 6.0 % Normal 0-10 [facility] Comment on above: Performed By: #### L 300.3900, L300.4310, L100.0100, L500.2500, L501.4021, L501.5200 ####[facility] [address] [place], [address] Neutrophils/100 WBC (Bld) 70.8 % High 47-70 [facility] Comment on above: Performed By: #### L 300.3900, L300.4310, L100.0100, L500.2500, L501.4021, L501.5200 ####[facility] [address] [place], [address] Nucleated RBC (Bld) [#/Vol] 0 10*3/uL Normal 0-5 [facility] Comment on above: Performed By: #### L 300.3900, L300.4310, L100.0100, L500.2500, L501.4021, L501.5200 ####[facility] [address] [place], [address] Platelet mean volume (Bld) [Entitic vol] 10.5 fL Normal 6.2-12.0 [facility] Comment on above: Performed By: #### L 300.3900, L300.4310, L100.0100, L500.2500, L501.4021, L501.5200 ####[facility] [address] [place], [address] Platelets (Bld) [#/Vol] 226 10*3/uL Normal 150-450 [facility] Comment on above: Performed By: #### L 300.3900, L300.4310, L100.0100, L500.2500, L501.4021, L501.5200 ####[facility] [address] [place], [address] RBC (Bld) [#/Vol] 3.35 10*6/uL Low 4.2-5.4 [facility] Comment on above: Performed By: #### L 300.3900, L300.4310, L100.0100, L500.2500, L501.4021, L501.5200 ####[facility] [address] [place], [address] RDW SD 52.0 fl High 35.1-43.9 [facility] Comment on above: Performed By: #### L 300.3900, L300.4310, L100.0100, L500.2500, L501.4021, L501.5200 ####[facility] [address] [place], [address] WBC (Bld) [#/Vol] 6.1 10*3/uL Normal 4.4-11.0 [facility] Comment on above: Performed By: #### L 300.3900, L300.4310, L100.0100, L500.2500, L501.4021, L501.5200 ####[facility] [address] [place], [address] Carbon dioxide, total [Moles /volume] in Central venous bloodOrdered By: Beto Keene on 11-19-2024 CO2 [Moles/Vol] 16.5 mmol/L Low 21.0-32.0 [facility] Chest 1 View (Portable)on Chest 1 View (Portable) Normal [facility] Chloride assayOrdered By: Pietro Keene on 11-19-2024 Chloride [Moles/Vol] 109 mmol/L High 98-108 [facility] Emergency Department Summary on 11-19-2024 Emergency Department Summary Normal [facility] Eosinophil percentageOrdered By: Beto Keene on 11-19-2024 Eosinophils/100 WBC (Bld) 2.3 % 0-5 [facility] Erythrocyte distribution wid th ratioOrdered By: Beto Keene on 11-19-2024 Erythrocyte distribution width (RBC) [Ratio] 14.3 % 11.6-14.6 [facility] Erythrocyte distribution wid th standard deviationOrdered By: Beto Keene on 11-19-2024 Erythrocyte distribution width (RBC) [Ratio] 52.0 fl High 35.1-43.9 [facility] Glomerular filtration rate ( GFR) estimation/1.73 sq m using serum, plasma, or whole bOrdered By: Beto Keene on 11-19-2024 GFR/1.73 sq M.predicted among non-blacks MDRD (S/P/Bld) [Vol rate/Area] 30 mL/min/{1.73_m2} Low >60 [facility] Comment on above: mL/min/1.73m2 CKD-EP I Creatinine Equation (2020) Hematocrit Auto (Bld) [Volum e fraction]Ordered By: Beto Keene on 11-19-2024 Hematocrit (Bld) [Volume fraction] 33.5 % Low 37-47 [facility] Hemoglobin measurementOrdere d By: Beto Keene on 11-19-2024 Hemoglobin (Bld) [Mass/Vol] 10.7 g/dL Low 12.0-15.0 [facility] Immature granulocytes/100 WB C Auto (Bld)Ordered By: Beto Keene on 11-19-2024 Immature granulocytes/100 WBC (Bld) 0.300 % 0.0-0.9 [facility] Comment on above: IG% - Immature Granu locytes (promyelocytes, myelocytes and metamyelocytes) > 1% indicates that a LEFT SHIFT is Present. International normalized rat io (INR) calculationOrdered By: Beto Keene on 11-19-2024 INR Coag (Bld) [Relative time] 2.4 {INR} [facility] L499.0042on 11-19-2024 Trop T High Sen 37 ng/L High <=14 [facility] Comment on above: Performed By: #### L 499.0042 ####[facility] [address] [place], [address] L499.0043on 11-19-2024 Trop T High Sen Normal <=14 [facility] Comment on above: Result Comment: OLIMPIA ENT DISCHARGED Performed By: #### L 499.0043 ####[facility] [address] [place], [address] L501.4021on 11-19-2024 Trop T High Sen 38 ng/L High <=14 [facility] Comment on above: Performed By: #### L 300.3900, L300.4310, L100.0100, L500.2500, L501.4021, L501.5200 ####[facility] [address] [place], [address] MCV (mean corpuscular volume ) determinationOrdered By: Beto Keene on 11-19-2024 MCV (RBC) [Entitic vol] 100.0 fL High 81-99 [facility] Magnesiumon 11-19-2024 Magnesium [Mass/Vol] 1.6 mg/dL Normal 1.5-2.2 [facility] Comment on above: Performed By: #### L 300.3900, L300.4310, L100.0100, L500.2500, L501.4021, L501.5200 ####[facility] [address] [place], [address] Magnesium measurement (mass/ volume)Ordered By: Beto Keene on 11-19-2024 Magnesium (Unsp spec) [Mass/Vol] 1.6 mg/dL 1.5-2.2 [facility] Mean corpuscular hemoglobin (MCH) determinationOrdered By: Beto Keene on 11-19-2024 MCH (RBC) [Entitic mass] 31.9 pg 27.0-32.0 [facility] Mean corpuscular hemoglobin concentration (MCHC) determinationOrdered By: Beto Keene on 11-19-2024 MCHC (RBC) [Mass/Vol] 31.9 g/dL Low 32-36 [facility] Mean platelet volume determi nationOrdered By: Beto Keene on 11-19-2024 Platelet mean volume (Bld) [Entitic vol] 10.5 fL 6.2-12.0 [facility] Monocyte percentageOrdered B y: Beto Keene on 11-19-2024 Monocytes/100 WBC (Bld) 6.0 % 0-10 [facility] Neutrophil percentageOrdered By: Beto Keene on 11-19-2024 Neutrophils/100 WBC (Bld) 70.8 % High 47-70 [facility] Nucleated red blood cell per centageOrdered By: Beto Keene on 11-19-2024 Nucleated RBC/100 WBC (Bld) [Ratio] 0 % 0-5 [facility] Partial Thromboplast Timeon 11-19-2024 aPTT Coag (Bld) [Time] 39.3 s High 24.1-36.2 [facility] Comment on above: Performed By: #### L 300.3900, L300.4310, L100.0100, L500.2500, L501.4021, L501.5200 ####[facility] [address] [place], [address] Platelet countOrdered By: Pietro Keene on 11-19-2024 Platelets (Bld) [#/Vol] 226 10*3/uL 150-450 [facility] Potassium measurement (mass/ volume)Ordered By: Beto Keene on 11-19-2024 Potassium (Unsp spec) [Mass/Vol] 3.9 mmol/L 3.3-5.1 [facility] Comment on above: Hemolysis present, R esults could be affected. Prothrombin Time w/INRon INR Coag (PPP) [Relative time] 2.4 {INR} Normal [facility] Comment on above: Performed By: #### L 300.3900, L300.4310, L100.0100, L500.2500, L501.4021, L501.5200 ####[facility] [address] [place], [place], [id number] PT Coag (PPP) [Time] 26.3 s High 11.7-14.9 [facility] Comment on above: Performed By: #### L 300.3900, L300.4310, L100.0100, L500.2500, L501.4021, L501.5200 ####[facility] [address] [place], [place], [id number] Prothrombin timeOrdered By: Beto Keene on 11-19-2024 PT Coag (PPP) [Time] 26.3 s High 11.7-14.9 [facility] RBC Auto (Bld) [#/Vol]Ordere d By: Beto Keene on 11-19-2024 RBC (Bld) [#/Vol] 3.35 10*6/uL Low 4.2-5.4 [facility] Serum creatinine measurement (mass/volume)Ordered By: Beto Keene on 11-19-2024 Creatinine [Mass/Vol] 1.63 mg/dL High 0.70-1.20 [facility] Serum glucose measurement (m ass/volume)Ordered By: Beto Keene on 11-19-2024 Glucose [Mass/Vol] 102 mg/dL High 70-99 [facility] Serum or plasma calcium dex urement (mass/volume)Ordered By: Beto Keene on 11-19-2024 Calcium [Mass/Vol] 7.3 mg/dL Low 7.6-11.0 [facility] Serum or plasma urea nitroge n measurement (mass/volume)Ordered By: Beto Keene on 11-19-2024 Urea nitrogen [Mass/Vol] 28 mg/dL High 4-19 [facility] Sodium levelOrdered By: Beto Keene on 11-19-2024 Sodium [Moles/Vol] 138 mmol/L 133-145 [facility] Troponin T.cardiac [Mass/vol ume] in Serum or Plasma by High sensitivity methodOrdered By: Beto Keene on 11-19-2024 Troponin T.cardiac High sensitivity method [Mass/Vol] 37 ng/L High <14 [facility] Troponin T.cardiac High sensitivity method [Mass/Vol] 38 ng/L High <14 [facility] Comment on above: Delta: 45 on 5-1208 White blood cell (WBC) count Ordered By: Beto Keene on 11-19-2024 WBC (Bld) [#/Vol] 6.1 10*3/uL 4.4-11.0 [facility] 12 Lead EKG performed by [facility] on 11-15-2024 12 Lead EKG performed by [facility] Office Visit Reporton 2024 Office Visit Report [facility] CNOVon 11-14-2024 CNOV Office Visit (INTMWS) REINIER ELIZABETH ([id number]) 1935 F NFR Date Time Provider Department 11/14/24 3:40 PM ANAY SCHULER INTMWS During your visit today, we recorded the following information about you: Pulse Respiration Blood pressure Weight 119/minute 16/minute 158/100 62.8 kg Anay Schuler MD 11/14/2024 1:59 PM Addendum We discussed your heart health and current medications: - Start taking Metoprolol 25 mg twice daily to help lower your heart rate. This prescription has been sent to [facility]. 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 - You have a follow-up appointment [...] follow-up. Reinier was recently seen by the [facility] [facility] on November 04. She is [...] tablet omepra (more content not included)... [facility] (INTMWS) ELIZABETHREINIER LOPEZ ([id number]) 1935 F NFR Date Time Provider Department 11/14/24 ANAY SCHULER During your visit today, we [...] will be in 12:30. Yolette Pérez RN Allergies As of Date: [...] Date Reviewed: 10/21/2024 Reviewed by: Erika Kwan APRN.INJECTOR ASSEMBLER - Fully Assessed Prescriptions as of 11/14/2024 [...] IF UNABLE, PLEASE REFER TO [facility] AT [facility]. DX: EDEMA - latanoprost (XALATAN) 0.005 % [...] Palpitations [R00.2] (more content not included)... Normal [facility] 12 Lead EKG performed by [facility] on 11-11-2024 12 Lead EKG performed by [facility] Normal [facility] Cardiology Visit Reporton Cardiology Visit Report Normal [facility] Anion gap in Serum or Plasma Ordered By: Jake Kingston on 11-08-2024 Anion gap [Moles/Vol] 10 mmol/L 5-15 [facility] BUN/creatinine ratioOrdered By: Jake Kingston on 11-08-2024 Urea nitrogen/Creatinine [Mass ratio] 13.2 mg/mg 10-20 [facility] Basic Metabolic Profile (BMP )on 11-08-2024 BUN/CRE 13.2 RATIO Normal 10-20 [facility] Comment on above: Performed By: #### L 500.2500 ####[facility] [address] [place], [address] Calcium [Mass/Vol] 9.3 mg/dL Normal 7.6-11.0 [facility] Comment on above: Performed By: #### L 500.2500 ####[facility] [address] [place], [address] Chloride [Moles/Vol] 110 mmol/L High 98-108 [facility] Comment on above: Performed By: #### L 500.2500 ####[facility] [address] [place], [address] CO2 [Moles/Vol] 22.7 mmol/L Normal 21.0-32.0 [facility] Comment on above: Performed By: #### L 500.2500 ####[facility] [address] [place], [address] Creatinine [Mass/Vol] 1.31 mg/dL High 0.70-1.20 [facility] Comment on above: Performed By: #### L 500.2500 ####[facility] [address] [place], [address] GAP 10 Normal 5-15 [facility] Comment on above: Performed By: #### L 500.2500 ####[facility] [address] [place], [address] GFR/1.73 sq M.predicted among non-blacks MDRD (S/P/Bld) [Vol rate/Area] 39 mL/min/{1.73_m2} Low >60 [facility] Comment on above: Result Comment: mL/m in/1.73m2 CKD-EPI Creatinine Equation (2020) Performed By: #### L 500.2500 ####[facility] [address] [place], [address] Glucose [Mass/Vol] 111 mg/dL High 70-99 [facility] Comment on above: Performed By: #### L 500.2500 ####[facility] [address] [place], [address] Potassium [Moles/Vol] 3.6 mmol/L Normal 3.3-5.1 [facility] Comment on above: Performed By: #### L 500.2500 ####[facility] [address] [place], [address] Sodium [Moles/Vol] 142 mmol/L Normal 133-145 [facility] Comment on above: Performed By: #### L 500.2500 ####[facility] [address] [place], [address] Urea nitrogen [Mass/Vol] 17 mg/dL Normal 4-19 [facility] Comment on above: Performed By: #### L 500.2500 ####[facility] [address] [place], [address] CNPNon 11-08-2024 [facility] Telephone (INTMWS) REINIER ELIZABETH ([id number]) 1935 F NFR Date Time Provider Department 11/08/24 ANAY SCHULER INTWS During your visit today, we recorded the following information about you: Abimbola Abbott LPN 11/08/2024 1:32 PM Signed Harjinder from [facility] Home Health calling with PT plan of care, 2 visits weekly for 3 weeks working on functional mobility. Patient BP was 187/78 being monitored by [employer]. No need for return call. Anay Schuler MD 11/08/2024 5:01 PM Signed Agree with follow up Regards, Anay Schuler MD Allergies As of Date: 11/08/2024 Noted [...] Date Reviewed: 10/21/2024 Reviewed by: Erika Kwan APRN.INJECTOR ASSEMBLER - Fully Assessed Reason for Visit: PT [...] IF UNABLE, PLEASE REFER TO [facility] AT [facility]. DX: EDEMA - latanoprost (XALATAN) 0.005 % [...] stroke [Z91.8 (more content not included)... Normal [facility] Carbon dioxide, total [Moles /volume] in Central venous bloodOrdered By: Jake Kingston on 11-08-2024 CO2 [Moles/Vol] 22.7 mmol/L 21.0-32.0 [facility] Chloride assayOrdered By: Estefani Kingston on 11-08-2024 Chloride [Moles/Vol] 110 mmol/L High 98-108 [facility] Glomerular filtration rate ( GFR) estimation/1.73 sq m using serum, plasma, or whole bOrdered By: Jake Kingston on 11-08-2024 GFR/1.73 sq M.predicted among non-blacks MDRD (S/P/Bld) [Vol rate/Area] 39 mL/min/{1.73_m2} Low >60 [facility] Comment on above: mL/min/1.73m2 CKD-EP I Creatinine Equation (2020) Office Visit Reporton 2024 Office Visit Report Normal [facility] Potassium measurement (mass/ volume)Ordered By: Jake Kingston on 11-08-2024 Potassium (Unsp spec) [Mass/Vol] 3.6 mmol/L 3.3-5.1 [facility] Serum creatinine measurement (mass/volume)Ordered By: Jake Kingston on 11-08-2024 Creatinine [Mass/Vol] 1.31 mg/dL High 0.70-1.20 [facility] Serum glucose measurement (m ass/volume)Ordered By: Jake Kingston on 11-08-2024 Glucose [Mass/Vol] 111 mg/dL High 70-99 [facility] Serum or plasma calcium dex urement (mass/volume)Ordered By: Jake Kingston on 11-08-2024 Calcium [Mass/Vol] 9.3 mg/dL 7.6-11.0 [facility] Serum or plasma urea nitroge n measurement (mass/volume)Ordered By: Jake Kingston on 11-08-2024 Urea nitrogen [Mass/Vol] 17 mg/dL 4-19 [facility] Sodium levelOrdered By: Festus Kingston on 11-08-2024 Sodium [Moles/Vol] 142 mmol/L 133-145 [facility] CNPNon 11-07-2024 CNPN Telephone (INTMWS) REINIER ELIZABETH ([id number]) 1935 F NFR Date Time Provider Department 11/07/24 ANAY SCHULER INTMWS During your visit today, we recorded the following information about you: Brinane Toribio RN 11/07/2024 11:35 AM Signed Allyson DENNISON calling from [facility] to report plan of care for patient [...] Date Reviewed: 10/21/2024 Reviewed by: Erika Kwan APRN.INJECTOR ASSEMBLER - Fully Assessed Reason for Visit: [facility] SN POC [Other] Prescriptions as of [...] IF UNABLE, PLEASE REFER TO [facility] AT [facility]. DX: EDEMA - latanoprost (XALATAN) 0.005 % [...] risk for (more content not included)... Normal [facility] CNPNon 11-03-2024 CNPN Telephone (INTMWS) REINIER ELIZABETH ([id number]) 1935 F NFR Date Time Provider Department 11/03/24 ANAY SCHULER INTMWS During your visit today, we recorded the following information about you: Brianne Toribio RN 11/03/2024 10:56 AM Signed Karen with [facility] HH calls to ask if provider would be willing to follow their HH orders for SN, PT, OT. Patient is discharging home today from [facility] PCU after being treated for A-fib and Renal Failure. Call back number is [phone]. JUMA Katz Joy, APRN.INJECTOR ASSEMBLER 11/03/2024 1:35 PM Addendum Agree to follow and ok with orders. Patient also needs a hospital follow up. Thank you Silvio Drake APRN.INJECTOR ASSEMBLER ParisaHaydeeSHIN 11/03/2024 2:39 PM Signed Karen notified. Allergies [...] Date Reviewed: 10/21/2024 Reviewed by: Erika Kwan APRN.INJECTOR ASSEMBLER - Fully Assessed Reason for Visit: Orders [...] IF UNABLE, PLEASE REFER TO [facility] AT [facility]. DX: EDEMA - latanoprost (XALATAN) 0.005 % [...] Anemia [D64.9] more content not included)... Normal [facility] Discharge Instructionon Discharge Instruction Normal [facility] Absolute lymphocyte countOrd ered By: Rory Trevizo on 11-02-2024 Lymphocytes Auto (Unsp spec) [#/Vol] 1.53 10*3/uL 0.83-4.51 [facility] Absolute neutrophil countOrd ered By: Rory Trevizo on 11-02-2024 Neutrophils (Bld) [#/Vol] 4.0 10*3/uL 2.0-7.7 [facility] Anion gap in Serum or Plasma Ordered By: Rory Trevizo on 11-02-2024 Anion gap [Moles/Vol] 10 mmol/L 5-15 [facility] Automated lymphocyte count a s percentage of total leukocytesOrdered By: Rory Trevizo on 11-02-2024 Lymphocytes/100 WBC Auto (Unsp spec) 23.9 % 19-41 [facility] BUN/creatinine ratioOrdered By: Rory Trevizo on 11-02-2024 Urea nitrogen/Creatinine [Mass ratio] 16.4 mg/mg 10-20 [facility] Basic Metabolic Profile (BMP )on 11-02-2024 BUN/CRE 16.4 RATIO Normal 10-20 [facility] Comment on above: Performed By: #### L 100.0100, L500.2500 ####[facility] [address] [place], [address] Calcium [Mass/Vol] 9.0 mg/dL Normal 7.6-11.0 [facility] Comment on above: Performed By: #### L 100.0100, L500.2500 ####[facility] [address] [place], [address] Chloride [Moles/Vol] 111 mmol/L High 98-108 [facility] Comment on above: Performed By: #### L 100.0100, L500.2500 ####[facility] [address] [place], [address] CO2 [Moles/Vol] 17.1 mmol/L Low 21.0-32.0 [facility] Comment on above: Performed By: #### L 100.0100, L500.2500 ####[facility] [address] [place], [address] Creatinine [Mass/Vol] 2.35 mg/dL High 0.70-1.20 [facility] Comment on above: Performed By: #### L 100.0100, L500.2500 ####[facility] [address] [place], [address] ECRCL 15.36 ml/min Low 50-250 [facility] Comment on above: Performed By: #### L 100.0100, L500.2500 ####[facility] [address] [place], [address] GAP 10 Normal 5-15 [facility] Comment on above: Performed By: #### L 100.0100, L500.2500 ####[facility] [address] [place], [address] GFR/1.73 sq M.predicted among non-blacks MDRD (S/P/Bld) [Vol rate/Area] 20 mL/min/{1.73_m2} Low >60 [facility] Comment on above: Result Comment: mL/m in/1.73m2 CKD-EPI Creatinine Equation (2020) Performed By: #### L 100.0100, L500.2500 ####[facility] [address] [place], [address] Glucose [Mass/Vol] 97 mg/dL Normal 70-99 [facility] Comment on above: Performed By: #### L 100.0100, L500.2500 ####[facility] [address] [place], [address] Potassium [Moles/Vol] 4.5 mmol/L Normal 3.3-5.1 [facility] Comment on above: Result Comment: Hemo lysis present, Results??could be affected.?? Performed By: #### L 100.0100, L500.2500 ####[facility] [address] [place], [address] Sodium [Moles/Vol] 139 mmol/L Normal 133-145 [facility] Comment on above: Performed By: #### L 100.0100, L500.2500 ####[facility] [address] [place], [address] Urea nitrogen [Mass/Vol] 39 mg/dL High 4-19 [facility] Comment on above: Performed By: #### L 100.0100, L500.2500 ####[facility] [address] [place], [address] Basophil percentageOrdered B y: Rory Trevizo on 11-02-2024 Basophils/100 WBC (Bld) 0.6 % 0-1 [facility] CBC W/Diff, Automatedon 05-0 5 Absolute Lymph 1.53 X10 3/uL Normal 0.83-4.51 [facility] Comment on above: Performed By: #### L 100.0100, L500.2500 ####[facility] [address], [address] Absolute Neut 4.0 X10 3/uL Normal 2.0-7.7 [facility] Comment on above: Performed By: #### L 100.0100, L500.2500 ####[facility] [address], [address] Basophils/100 WBC (Bld) 0.6 % Normal 0-1 [facility] Comment on above: Performed By: #### L 100.0100, L500.2500 ####[facility] [address] [place], [address] Eosinophils/100 WBC (Bld) 4.4 % Normal 0-5 [facility] Comment on above: Performed By: #### L 100.0100, L500.2500 ####[facility] [address] [place], [address] Erythrocyte distribution width (RBC) [Ratio] 13.9 % Normal 11.6-14.6 [facility] Comment on above: Performed By: #### L 100.0100, L500.2500 ####[facility] [address] [place], [address] Hematocrit (Bld) [Volume fraction] 29.0 % Low 37-47 [facility] Comment on above: Performed By: #### L 100.0100, L500.2500 ####[facility] [address], [address] Hemoglobin (Bld) [Mass/Vol] 9.5 g/dL Low 12.0-15.0 [facility] Comment on above: Performed By: #### L 100.0100, L500.2500 ####[facility] [address] [place], [address] IG% 0.200 Normal 0.0-0.9 [facility] Comment on above: Result Comment: IG% - Immature Granulocytes (promyelocytes, myelocytes andmetamyelocytes) > 1% indicates that a LEFT SHIFT is Present. Performed By: #### L 100.0100, L500.2500 ####[facility] [address] [place], [address] Lymphocytes/100 WBC (Bld) 23.9 % Normal 19-41 [facility] Comment on above: Performed By: #### L 100.0100, L500.2500 ####[facility] [address] [place], [address] MCH (RBC) [Entitic mass] 32.0 pg Normal 27.0-32.0 [facility] Comment on above: Performed By: #### L 100.0100, L500.2500 ####[facility] [address] [place], [address] MCHC (RBC) [Mass/Vol] 32.8 g/dL Normal 32-36 [facility] Comment on above: Performed By: #### L 100.0100, L500.2500 ####[facility] [address] [place], [address] MCV (RBC) [Entitic vol] 97.6 fL Normal 81-99 [facility] Comment on above: Performed By: #### L 100.0100, L500.2500 ####[facility] [address] [place], [address] Monocytes/100 WBC (Bld) 8.6 % Normal 0-10 [facility] Comment on above: Performed By: #### L 100.0100, L500.2500 ####[facility] [address] [place], [address] Neutrophils/100 WBC (Bld) 62.3 % Normal 47-70 [facility] Comment on above: Performed By: #### L 100.0100, L500.2500 ####[facility] [address] [place], [address] Nucleated RBC (Bld) [#/Vol] 0 10*3/uL Normal 0-5 [facility] Comment on above: Performed By: #### L 100.0100, L500.2500 ####[facility] [address] [place], [address] Platelet mean volume (Bld) [Entitic vol] 10.6 fL Normal 6.2-12.0 [facility] Comment on above: Performed By: #### L 100.0100, L500.2500 ####[facility] [address] [place], [address] Platelets (Bld) [#/Vol] 164 10*3/uL Normal 150-450 [facility] Comment on above: Performed By: #### L 100.0100, L500.2500 ####[facility] [address] [place], [address] RBC (Bld) [#/Vol] 2.97 10*6/uL Low 4.2-5.4 [facility] Comment on above: Performed By: #### L 100.0100, L500.2500 ####[facility] [address] [place], [address] RDW SD 48.3 fl High 35.1-43.9 [facility] Comment on above: Performed By: #### L 100.0100, L500.2500 ####[facility] [address] [place], [address] WBC (Bld) [#/Vol] 6.4 10*3/uL Normal 4.4-11.0 [facility] Comment on above: Performed By: #### L 100.0100, L500.2500 ####[facility] [address] [place], [address] Carbon dioxide, total [Moles /volume] in Central venous bloodOrdered By: Rory Trevizo on 11-02-2024 CO2 [Moles/Vol] 17.1 mmol/L Low 21.0-32.0 [facility] Chloride assayOrdered By: Shyann Trevizo on 11-02-2024 Chloride [Moles/Vol] 111 mmol/L High 98-108 [facility] Eosinophil percentageOrdered By: Rory Trevizo on 11-02-2024 Eosinophils/100 WBC (Bld) 4.4 % 0-5 [facility] Erythrocyte distribution wid th (RBC) [Ratio]Ordered By: Rory Trevizo on 11-02-2024 Erythrocyte distribution width (RBC) [Entitic vol] 48.3 fL High 35.1-43.9 [facility] Erythrocyte distribution wid th ratioOrdered By: Rory Trevizo on 11-02-2024 Erythrocyte distribution width (RBC) [Ratio] 13.9 % 11.6-14.6 [facility] Erythrocyte distribution wid th standard deviationOrdered By: Rory Trevizo on 11-02-2024 Erythrocyte distribution width (RBC) [Ratio] 48.3 fl High 35.1-43.9 [facility] Estimation of creatinine asael aranceOrdered By: Rory Trevizo on 11-02-2024 Estimated Creatinine Clearance Calc 15.36 ml/min Low 50-250 [facility] GFR/1.73 sq M.predicted jennifer g non-blacks MDRD (S/P/Bld) [Vol rate/Area]Ordered By: Rory Trevizo on 11-02-2024 Estimated GFR (MDRD) Non-Af Amer 20 Low >60 [facility] Comment on above: mL/min/1.73m2 CKD-EP I Creatinine Equation (2020) Glomerular filtration rate ( GFR) estimation/1.73 sq m using serum, plasma, or whole bOrdered By: Rory Trevizo on 11-02-2024 GFR/1.73 sq M.predicted among non-blacks MDRD (S/P/Bld) [Vol rate/Area] 20 mL/min/{1.73_m2} Low >60 [facility] Comment on above: mL/min/1.73m2 CKD-EP I Creatinine Equation (2020) Hematocrit Auto (Bld) [Volum e fraction]Ordered By: Rory Trevizo on 11-02-2024 Hematocrit (Bld) [Volume fraction] 29.0 % Low 37-47 [facility] Hemoglobin measurementOrdere d By: Rory Trevizo on 11-02-2024 Hemoglobin (Bld) [Mass/Vol] 9.5 g/dL Low 12.0-15.0 [facility] Immature granulocytes/100 WB C Auto (Bld)Ordered By: Rory Trevizo on 11-02-2024 Immature granulocytes/100 WBC (Bld) 0.200 % 0.0-0.9 [facility] Comment on above: IG% - Immature Granu locytes (promyelocytes, myelocytes and metamyelocytes) > 1% indicates that a LEFT SHIFT is Present. Lymphocytes Auto (Unsp spec) [#/Vol]Ordered By: Rory Trevizo on 11-02-2024 Lymphocytes (Bld) [#/Vol] 1.53 10*3/uL 0.83-4.51 [facility] Lymphocytes/100 WBC Auto (Un sp spec)Ordered By: Rory Trevizo on 11-02-2024 Lymphocytes/100 WBC (Bld) 23.9 % 19-41 [facility] MCV (mean corpuscular volume ) determinationOrdered By: Rory Trevizo on 11-02-2024 MCV (RBC) [Entitic vol] 97.6 fL 81-99 [facility] Mean corpuscular hemoglobin (MCH) determinationOrdered By: Rory Trevizo on 11-02-2024 MCH (RBC) [Entitic mass] 32.0 pg 27.0-32.0 [facility] Mean corpuscular hemoglobin concentration (MCHC) determinationOrdered By: Rory Trevizo on 11-02-2024 MCHC (RBC) [Mass/Vol] 32.8 g/dL 32-36 [facility] Mean platelet volume determi nationOrdered By: Rory Trevizo on 11-02-2024 Platelet mean volume (Bld) [Entitic vol] 10.6 fL 6.2-12.0 [facility] Monocyte percentageOrdered B y: Rory Trevizo on 11-02-2024 Monocytes/100 WBC (Bld) 8.6 % 0-10 [facility] Neutrophil percentageOrdered By: Rory Trevizo on 11-02-2024 Neutrophils/100 WBC (Bld) 62.3 % 47-70 [facility] Nucleated red blood cell per centageOrdered By: Rory Trevizo on 11-02-2024 Nucleated RBC/100 WBC (Bld) [Ratio] 0 % 0-5 [facility] Platelet countOrdered By: Shyann Trevizo on 11-02-2024 Platelets (Bld) [#/Vol] 164 10*3/uL 150-450 [facility] Potassium (Unsp spec) [Mass/ Vol]Ordered By: Rory Trevizo on 11-02-2024 Potassium [Moles/Vol] 4.5 mmol/L 3.3-5.1 [facility] Comment on above: Hemolysis present, R esults could be affected. Potassium measurement (mass/ volume)Ordered By: Rory Trevizo on 11-02-2024 Potassium (Unsp spec) [Mass/Vol] 4.5 mmol/L 3.3-5.1 [facility] Comment on above: Hemolysis present, R esults could be affected. RBC Auto (Bld) [#/Vol]Ordere d By: Rory Trevizo on 11-02-2024 RBC (Bld) [#/Vol] 2.97 10*6/uL Low 4.2-5.4 [facility] Serum creatinine measurement (mass/volume)Ordered By: Rory Trevizo on 11-02-2024 Creatinine [Mass/Vol] 2.35 mg/dL High 0.70-1.20 [facility] Serum glucose measurement (m ass/volume)Ordered By: Rory Trevizo on 11-02-2024 Glucose [Mass/Vol] 97 mg/dL 70-99 [facility] Serum or plasma calcium dex urement (mass/volume)Ordered By: Rory Trevizo on 11-02-2024 Calcium [Mass/Vol] 9.0 mg/dL 7.6-11.0 [facility] Serum or plasma urea nitroge n measurement (mass/volume)Ordered By: Rory Trevizo on 11-02-2024 Urea nitrogen [Mass/Vol] 39 mg/dL High 4-19 [facility] Sodium levelOrdered By: John Trevizo on 11-02-2024 Sodium [Moles/Vol] 139 mmol/L 133-145 [facility] White blood cell (WBC) count Ordered By: Rory Trevizo on 11-02-2024 WBC (Bld) [#/Vol] 6.4 10*3/uL 4.4-11.0 [facility] Basic Metabolic Profile (BMP )on 11-01-2024 BUN/CRE 16.7 RATIO Normal 10-20 [facility] Comment on above: Performed By: #### L 100.0100, L500.2500 ####[facility] [address] [place], [address] Calcium [Mass/Vol] 9.2 mg/dL Normal 7.6-11.0 [facility] Comment on above: Performed By: #### L 100.0100, L500.2500 ####[facility] [address] [place], [address] Chloride [Moles/Vol] 112 mmol/L High 98-108 [facility] Comment on above: Performed By: #### L 100.0100, L500.2500 ####[facility] [address] [place], [address] CO2 [Moles/Vol] 15.1 mmol/L Low 21.0-32.0 [facility] Comment on above: Performed By: #### L 100.0100, L500.2500 ####[facility] [address] [place], [address] Creatinine [Mass/Vol] 2.09 mg/dL High 0.70-1.20 [facility] Comment on above: Performed By: #### L 100.0100, L500.2500 ####[facility] [address] [place], [address] ECRCL 17.25 ml/min Low 50-250 [facility] Comment on above: Performed By: #### L 100.0100, L500.2500 ####[facility] [address] [place], [address] GAP 12 Normal 5-15 [facility] Comment on above: Performed By: #### L 100.0100, L500.2500 ####[facility] [address] [place], [address] GFR/1.73 sq M.predicted among non-blacks MDRD (S/P/Bld) [Vol rate/Area] 23 mL/min/{1.73_m2} Low >60 [facility] Comment on above: Result Comment: mL/m in/1.73m2 CKD-EPI Creatinine Equation (2020) Performed By: #### L 100.0100, L500.2500 ####[facility] [address] [place], [address] Glucose [Mass/Vol] 101 mg/dL High 70-99 [facility] Comment on above: Performed By: #### L 100.0100, L500.2500 ####[facility] [address] [place], [address] Potassium [Moles/Vol] 4.4 mmol/L Normal 3.3-5.1 [facility] Comment on above: Performed By: #### L 100.0100, L500.2500 ####[facility] [address] [place], [address] Sodium [Moles/Vol] 139 mmol/L Normal 133-145 [facility] Comment on above: Performed By: #### L 100.0100, L500.2500 ####[facility] [address] [place], [address] Urea nitrogen [Mass/Vol] 35 mg/dL High 4-19 [facility] Comment on above: Performed By: #### L 100.0100, L500.2500 ####[facility] [address] [place], [address] CBC W/Diff, Automatedon 05-0 6-5 Absolute Lymph 1.57 X10 3/uL Normal 0.83-4.51 [facility] Comment on above: Performed By: #### L 100.0100, L500.2500 ####[facility] [address] [place], [address] Absolute Neut 3.8 X10 3/uL Normal 2.0-7.7 [facility] Comment on above: Performed By: #### L 100.0100, L500.2500 ####[facility] [address] [place], [address] Basophils/100 WBC (Bld) 0.3 % Normal 0-1 [facility] Comment on above: Performed By: #### L 100.0100, L500.2500 ####[facility] [address] [place], [address] Eosinophils/100 WBC (Bld) 3.5 % Normal 0-5 [facility] Comment on above: Performed By: #### L 100.0100, L500.2500 ####[facility] [address] [place], [address] Erythrocyte distribution width (RBC) [Ratio] 14.0 % Normal 11.6-14.6 [facility] Comment on above: Performed By: #### L 100.0100, L500.2500 ####[facility] [address] [place], [address] Hematocrit (Bld) [Volume fraction] 29.8 % Low 37-47 [facility] Comment on above: Performed By: #### L 100.0100, L500.2500 ####[facility] [address] [place], [address] Hemoglobin (Bld) [Mass/Vol] 9.5 g/dL Low 12.0-15.0 [facility] Comment on above: Performed By: #### L 100.0100, L500.2500 ####[facility] [address] [place], [address] IG% 0.300 Normal 0.0-0.9 [facility] Comment on above: Result Comment: IG% - Immature Granulocytes (promyelocytes, myelocytes andmetamyelocytes) > 1% indicates that a LEFT SHIFT is Present. Performed By: #### L 100.0100, L500.2500 ####[facility] [address] [place], [address] Lymphocytes/100 WBC (Bld) 25.2 % Normal 19-41 [facility] Comment on above: Performed By: #### L 100.0100, L500.2500 ####[facility] [address] [place], [address] MCH (RBC) [Entitic mass] 31.5 pg Normal 27.0-32.0 [facility] Comment on above: Performed By: #### L 100.0100, L500.2500 ####[facility] [address] [place], [address] MCHC (RBC) [Mass/Vol] 31.9 g/dL Low 32-36 [facility] Comment on above: Performed By: #### L 100.0100, L500.2500 ####[facility] [address] [place], [address] MCV (RBC) [Entitic vol] 98.7 fL Normal 81-99 [facility] Comment on above: Performed By: #### L 100.0100, L500.2500 ####[facility] [address] [place], [address] Monocytes/100 WBC (Bld) 9.5 % Normal 0-10 [facility] Comment on above: Performed By: #### L 100.0100, L500.2500 ####[facility] [address] [place], [address] Neutrophils/100 WBC (Bld) 61.2 % Normal 47-70 [facility] Comment on above: Performed By: #### L 100.0100, L500.2500 ####[facility] [address] [place], [address] Nucleated RBC (Bld) [#/Vol] 0.3 10*3/uL Normal 0-5 [facility] Comment on above: Performed By: #### L 100.0100, L500.2500 ####[facility] [address] [place], [address] Platelet mean volume (Bld) [Entitic vol] 10.8 fL Normal 6.2-12.0 [facility] Comment on above: Performed By: #### L 100.0100, L500.2500 ####[facility] [address] [place], [address] Platelets (Bld) [#/Vol] 171 10*3/uL Normal 150-450 [facility] Comment on above: Performed By: #### L 100.0100, L500.2500 ####[facility] [address] [place], [address] RBC (Bld) [#/Vol] 3.02 10*6/uL Low 4.2-5.4 [facility] Comment on above: Performed By: #### L 100.0100, L500.2500 ####[facility] [address] [place], [address] RDW SD 48.7 fl High 35.1-43.9 [facility] Comment on above: Performed By: #### L 100.0100, L500.2500 ####[facility] [address] [place], [address] WBC (Bld) [#/Vol] 6.2 10*3/uL Normal 4.4-11.0 [facility] Comment on above: Performed By: #### L 100.0100, L500.2500 ####[facility] [address] [place], [address] Arterial study reportOrdered By: Schuyler Rosen on 10-31-2024 Noninvasive arteriosclerosis study report [facility] Other Phone: Basic Metabolic Profile (BMP )on 10-31-2024 BUN/CRE 17.6 RATIO Normal 10-20 [facility] Comment on above: Performed By: #### L 500.2500, L100.0100 ####[facility] [address] [place], [address] Calcium [Mass/Vol] 8.7 mg/dL Normal 7.6-11.0 [facility] Comment on above: Performed By: #### L 500.2500, L100.0100 ####[facility] [address] [place], [address] Chloride [Moles/Vol] 110 mmol/L High 98-108 [facility] Comment on above: Performed By: #### L 500.2500, L100.0100 ####[facility] [address] [place], [address] CO2 [Moles/Vol] 14.5 mmol/L Low 21.0-32.0 [facility] Comment on above: Performed By: #### L 500.2500, L100.0100 ####[facility] [address] [place], [address] Creatinine [Mass/Vol] 2.14 mg/dL High 0.70-1.20 [facility] Comment on above: Performed By: #### L 500.2500, L100.0100 ####[facility] [address] [place], [address] ECRCL 16.46 ml/min Low 50-250 [facility] Comment on above: Performed By: #### L 500.2500, L100.0100 ####[facility] [address] [place], [address] GAP 12 Normal 5-15 [facility] Comment on above: Performed By: #### L 500.2500, L100.0100 ####[facility] [address] [place], [address] GFR/1.73 sq M.predicted among non-blacks MDRD (S/P/Bld) [Vol rate/Area] 22 mL/min/{1.73_m2} Low >60 [facility] Comment on above: Result Comment: mL/m in/1.73m2 CKD-EPI Creatinine Equation (2020) Performed By: #### L 500.2500, L100.0100 ####[facility] [address] [place], [address] Glucose [Mass/Vol] 104 mg/dL High 70-99 [facility] Comment on above: Performed By: #### L 500.2500, L100.0100 ####[facility] [address] [place], [address] Potassium [Moles/Vol] 4.2 mmol/L Normal 3.3-5.1 [facility] Comment on above: Performed By: #### L 500.2500, L100.0100 ####[facility] [address] [place], [address] Sodium [Moles/Vol] 136 mmol/L Normal 133-145 [facility] Comment on above: Performed By: #### L 500.2500, L100.0100 ####[facility] [address] [place], [address] Urea nitrogen [Mass/Vol] 38 mg/dL High 4-19 [facility] Comment on above: Performed By: #### L 500.2500, L100.0100 ####[facility] [address] [place], [address] CBC W/Diff, Automatedon 05-0 5-2025 Absolute Lymph 1.64 X10 3/uL Normal 0.83-4.51 [facility] Comment on above: Performed By: #### L 500.2500, L100.0100 ####[facility] [address] [place], [address] Absolute Neut 4.1 X10 3/uL Normal 2.0-7.7 [facility] Comment on above: Performed By: #### L 500.2500, L100.0100 ####[facility] [address] [place], [address] Basophils/100 WBC (Bld) 0.8 % Normal 0-1 [facility] Comment on above: Performed By: #### L 500.2500, L100.0100 ####[facility] [address] [place], [address] Eosinophils/100 WBC (Bld) 2.3 % Normal 0-5 [facility] Comment on above: Performed By: #### L 500.2500, L100.0100 ####[facility] [address] [place], [address] Erythrocyte distribution width (RBC) [Ratio] 13.6 % Normal 11.6-14.6 [facility] Comment on above: Performed By: #### L 500.2500, L100.0100 ####[facility] [address] [place], [address] Hematocrit (Bld) [Volume fraction] 32.3 % Low 37-47 [facility] Comment on above: Performed By: #### L 500.2500, L100.0100 ####[facility] [address] [place], [address] Hemoglobin (Bld) [Mass/Vol] 10.2 g/dL Low 12.0-15.0 [facility] Comment on above: Performed By: #### L 500.2500, L100.0100 ####[facility] [address] [place], [address] IG% 0.500 Normal 0.0-0.9 [facility] Comment on above: Result Comment: IG% - Immature Granulocytes (promyelocytes, myelocytes andmetamyelocytes) > 1% indicates that a LEFT SHIFT is Present. Performed By: #### L 500.2500, L100.0100 ####[facility] [address] [place], [address] Lymphocytes/100 WBC (Bld) 24.8 % Normal 19-41 [facility] Comment on above: Performed By: #### L 500.2500, L100.0100 ####[facility] [address] [place], [address] MCH (RBC) [Entitic mass] 31.5 pg Normal 27.0-32.0 [facility] Comment on above: Performed By: #### L 500.2500, L100.0100 ####[facility] [address] [place], [address] MCHC (RBC) [Mass/Vol] 31.6 g/dL Low 32-36 [facility] Comment on above: Performed By: #### L 500.2500, L100.0100 ####[facility] [address] [place], [address] MCV (RBC) [Entitic vol] 99.7 fL High 81-99 [facility] Comment on above: Performed By: #### L 500.2500, L100.0100 ####[facility] [address] [place], [address] Monocytes/100 WBC (Bld) 9.1 % Normal 0-10 [facility] Comment on above: Performed By: #### L 500.2500, L100.0100 ####[facility] [address] [place], [address] Neutrophils/100 WBC (Bld) 62.5 % Normal 47-70 [facility] Comment on above: Performed By: #### L 500.2500, L100.0100 ####[facility] [address] [place], [address] Nucleated RBC (Bld) [#/Vol] 0 10*3/uL Normal 0-5 [facility] Comment on above: Performed By: #### L 500.2500, L100.0100 ####[facility] [address] [place], [address] Platelet mean volume (Bld) [Entitic vol] 11.1 fL Normal 6.2-12.0 [facility] Comment on above: Performed By: #### L 500.2500, L100.0100 ####[facility] [address] [place], [address] Platelets (Bld) [#/Vol] 168 10*3/uL Normal 150-450 [facility] Comment on above: Performed By: #### L 500.2500, L100.0100 ####[facility] [address] [place], [address] RBC (Bld) [#/Vol] 3.24 10*6/uL Low 4.2-5.4 [facility] Comment on above: Performed By: #### L 500.2500, L100.0100 ####[facility] [address] [place], [address] RDW SD 48.1 fl High 35.1-43.9 [facility] Comment on above: Performed By: #### L 500.2500, L100.0100 ####[facility] [address] [place], [address] WBC (Bld) [#/Vol] 6.6 10*3/uL Normal 4.4-11.0 [facility] Comment on above: Performed By: #### L 500.2500, L100.0100 ####[facility] [address] [place], [address] Consultation - Cardiologyon 10-31-2024 Consultation - Cardiology Normal [facility] Echo Limited w/Contraston Echo Limited w/Contrast Normal [facility] Limited echocardiogram repor tOrdered By: Talia David on 10-31-2024 Study report [facility] Work Phone: Lower Ext Art Exam w/o Exerc leonor 10-31-2024 Lower Ext Art Exam w/o Exercis Normal [facility] 12 Lead EKGon 10-30-2024 12 Lead EKG Normal [facility] Basic Metabolic Profile (BMP )on 10-30-2024 BUN/CRE 17.7 RATIO Normal 10-20 [facility] Comment on above: Performed By: #### L 500.2500, L100.0100, L503.7505 ####[facility] [address] [place], [address] Calcium [Mass/Vol] 9.1 mg/dL Normal 7.6-11.0 [facility] Comment on above: Performed By: #### L 500.2500, L100.0100, L503.7505 ####[facility] [address] [place], [address] Chloride [Moles/Vol] 109 mmol/L High 98-108 [facility] Comment on above: Performed By: #### L 500.2500, L100.0100, L503.7505 ####[facility] [address] [place], [address] CO2 [Moles/Vol] 17.5 mmol/L Low 21.0-32.0 [facility] Comment on above: Performed By: #### L 500.2500, L100.0100, L503.7505 ####[facility] [address] [place], [address] Creatinine [Mass/Vol] 2.27 mg/dL High 0.70-1.20 [facility] Comment on above: Performed By: #### L 500.2500, L100.0100, L503.7505 ####[facility] [address] [place], [address] ECRCL 15.50 ml/min Low 50-250 [facility] Comment on above: Performed By: #### L 500.2500, L100.0100, L503.7505 ####[facility] [address] [place], [address] GAP 10 Normal 5-15 [facility] Comment on above: Performed By: #### L 500.2500, L100.0100, L503.7505 ####[facility] [address] [place], [address] GFR/1.73 sq M.predicted among non-blacks MDRD (S/P/Bld) [Vol rate/Area] 20 mL/min/{1.73_m2} Low >60 [facility] Comment on above: Result Comment: mL/m in/1.73m2 CKD-EPI Creatinine Equation (2020) Performed By: #### L 500.2500, L100.0100, L503.7505 ####[facility] [address] [place], [address] Glucose [Mass/Vol] 118 mg/dL High 70-99 [facility] Comment on above: Performed By: #### L 500.2500, L100.0100, L503.7505 ####[facility] [address] [place], [address] Potassium [Moles/Vol] 5.0 mmol/L Normal 3.3-5.1 [facility] Comment on above: Result Comment: Hemo lysis present, Results??could be affected.?? Performed By: #### L 500.2500, L100.0100, L503.7505 ####[facility] [address] [place], [address] Sodium [Moles/Vol] 137 mmol/L Normal 133-145 [facility] Comment on above: Performed By: #### L 500.2500, L100.0100, L503.7505 ####[facility] [address] [place], [address] Urea nitrogen [Mass/Vol] 40 mg/dL High 4-19 [facility] Comment on above: Performed By: #### L 500.2500, L100.0100, L503.7505 ####[facility] [address] [place], [address] Bilirubin Test strip Ql (U)O rdered By: Jose Mcgraw on 10-30-2024 Bilirubin Ql (U) Negative Negative [facility] CBC W/Diff, Automatedon Absolute Lymph 1.47 X10 3/uL Normal 0.83-4.51 [facility] Comment on above: Performed By: #### L 500.2500, L100.0100, L503.7505 ####[facility] [address] [place], [address] Absolute Neut 5.7 X10 3/uL Normal 2.0-7.7 [facility] Comment on above: Performed By: #### L 500.2500, L100.0100, L503.7505 ####[facility] [address] [place], [address] Basophils/100 WBC (Bld) 0.6 % Normal 0-1 [facility] Comment on above: Performed By: #### L 500.2500, L100.0100, L503.7505 ####[facility] [address] [place], [address] Eosinophils/100 WBC (Bld) 1.4 % Normal 0-5 [facility] Comment on above: Performed By: #### L 500.2500, L100.0100, L503.7505 ####[facility] [address] [place], [address] Erythrocyte distribution width (RBC) [Ratio] 13.6 % Normal 11.6-14.6 [facility] Comment on above: Performed By: #### L 500.2500, L100.0100, L503.7505 ####[facility] [address] [place], [address] Hematocrit (Bld) [Volume fraction] 35.6 % Low 37-47 [facility] Comment on above: Performed By: #### L 500.2500, L100.0100, L503.7505 ####[facility] [address] [place], [address] Hemoglobin (Bld) [Mass/Vol] 11.5 g/dL Low 12.0-15.0 [facility] Comment on above: Performed By: #### L 500.2500, L100.0100, L503.7505 ####[facility] [address] [place], [address] IG% 0.500 Normal 0.0-0.9 [facility] Comment on above: Result Comment: IG% - Immature Granulocytes (promyelocytes, myelocytes andmetamyelocytes) > 1% indicates that a LEFT SHIFT is Present. Performed By: #### L 500.2500, L100.0100, L503.7505 ####[facility] [address] [place], [address] Lymphocytes/100 WBC (Bld) 18.5 % Low 19-41 [facility] Comment on above: Performed By: #### L 500.2500, L100.0100, L503.7505 ####[facility] [address] [place], [address] MCH (RBC) [Entitic mass] 31.7 pg Normal 27.0-32.0 [facility] Comment on above: Performed By: #### L 500.2500, L100.0100, L503.7505 ####[facility] [address] [place], [address] MCHC (RBC) [Mass/Vol] 32.3 g/dL Normal 32-36 [facility] Comment on above: Performed By: #### L 500.2500, L100.0100, L503.7505 ####[facility] [address] [place], [address] MCV (RBC) [Entitic vol] 98.1 fL Normal 81-99 [facility] Comment on above: Performed By: #### L 500.2500, L100.0100, L503.7505 ####[facility] [address] [place], [address] Monocytes/100 WBC (Bld) 6.7 % Normal 0-10 [facility] Comment on above: Performed By: #### L 500.2500, L100.0100, L503.7505 ####[facility] [address] [place], [address] Neutrophils/100 WBC (Bld) 72.3 % High 47-70 [facility] Comment on above: Performed By: #### L 500.2500, L100.0100, L503.7505 ####[facility] [address] [place], [address] Nucleated RBC (Bld) [#/Vol] 0.3 10*3/uL Normal 0-5 [facility] Comment on above: Performed By: #### L 500.2500, L100.0100, L503.7505 ####[facility] [address] [place], [address] Platelet mean volume (Bld) [Entitic vol] 11.6 fL Normal 6.2-12.0 [facility] Comment on above: Performed By: #### L 500.2500, L100.0100, L503.7505 ####[facility] [address] [place], [address] Platelets (Bld) [#/Vol] 229 10*3/uL Normal 150-450 [facility] Comment on above: Performed By: #### L 500.2500, L100.0100, L503.7505 ####[facility] [address] [place], [address] RBC (Bld) [#/Vol] 3.63 10*6/uL Low 4.2-5.4 [facility] Comment on above: Performed By: #### L 500.2500, L100.0100, L503.7505 ####[facility] [address] [place], [address] RDW SD 48.1 fl High 35.1-43.9 [facility] Comment on above: Performed By: #### L 500.2500, L100.0100, L503.7505 ####[facility] [address] [place], [address] WBC (Bld) [#/Vol] 7.9 10*3/uL Normal 4.4-11.0 [facility] Comment on above: Performed By: #### L 500.2500, L100.0100, L503.7505 ####[facility] [address] [place], [address] Chest 1 View (Portable)on Chest 1 View (Portable) Normal [facility] Emergency Department Summary on 10-30-2024 Emergency Department Summary Normal [facility] Epithelial cells.squamous LM Ql (Urine sed)Ordered By: Jose Mcgraw on 10-30-2024 Epithelial cells.squamous LM.HPF (Urine sed) [#/Area] 0 /[HPF] 5-10 [facility] Glucose Ql (U)Ordered By: Antoinette Mcgraw on 10-30-2024 Urine Glucose (UA) Normal mg/dl Normal [facility] H AND P Exam - Hospitaliston 10-30-2024 H&P Exam - Hospitalist Normal [facility] Hyaline casts LM.LPF (Urine sed) [#/Area]Ordered By: Jose Mcgraw on 10-30-2024 Hyaline casts (Urine sed) [#/Area] 0 /[LPF] 0-5 [facility] Hyaline casts LM Ql (Urine sed) 0-5 SEEN /lpf 0-5 [facility] Influenza virus A and B and SARS-CoV-2 (COVID-19) and Respiratory syncytial virus RNAOrdered By: Jose Mcgraw on 10-30-2024 SARS-CoV-2 (COVID-19) RNA GUERA+probe Ql (Unsp spec) [facility] Ketones Test strip Ql (U)Ord ered By: Jose Mcgraw on 10-30-2024 Ketones Ql (U) Negative Negative [facility] L499.0042on 10-30-2024 Trop T High Sen 50 ng/L High <=14 [facility] Comment on above: Performed By: #### L 499.0042 ####[facility] [address] [place], [place], [address] L499.0043on 10-30-2024 Trop T High Sen 43 ng/L High <=14 [facility] Comment on above: Performed By: #### L 499.0043 ####[facility] [address] [place], [place], [address] L501.4021on 10-30-2024 Trop T High Sen 45 ng/L High <=14 [facility] Comment on above: Performed By: #### L 501.4021 ####[facility] [address] [place], [address] L503.7505on 10-30-2024 Natriuretic peptide B (Bld) [Mass/Vol] 54845 pg/mL High <=1800 [facility] Comment on above: Result Comment: Hear t Failure Unlikely: < 300 pg/mLHeart Failure Likely< 50 Years: > 450 pg/mL50-75 Years: > 900 pg/mL>75 Years: > 1800 pg/mL Performed By: #### L 500.2500, L100.0100, L503.7505 ####[facility] [address] [place], [address] M100.678on 10-30-2024 M100.678 Pending SARS-CoV-2 (COVID 19) Negative INFLUENZA A Negative INFLUENZA B Negative RSV PCR Negative Normal [facility] Comment on above: Performed By: #### L 501.1930, L400.0001, M100.678 ####[facility] [address] [place], [address] Microscopic analysis of urin e for red blood cells (RBC)Ordered By: Jose Mcgraw on 10-30-2024 Microscopic analysis of urine for red blood cells (RBC) 0 SEEN /hpf 0-5 [facility] Urine RBC 0 SEEN /hpf 0-5 [facility] Mucus LM Ql (Urine sed)Order ed By: Jose Mcgraw on 10-30-2024 Mucus Ql (Urine sed) RARE /hpf [facility] Natriuretic peptide.B prohor jose d N-Terminal [Mass/Vol]Ordered By: Jose Mcgraw on 10-30-2024 Natriuretic peptide B (Bld) [Mass/Vol] 30803 pg/mL High <1800 [facility] Comment on above: Heart Failure Unlike ly: < 300 pg/mLHeart Failure Likely< 50 Years: > 450 pg/mL50-75 Years: > 900 pg/mL>75 Years: > 1800 pg/mL Natriuretic peptide.B prohor jose d N-Terminal [Mass/volume] in Serum or PlasmaOrdered By: Jose Mcgraw on 10-30-2024 Natriuretic peptide.B prohormone N-Terminal [Mass/Vol] 59659 pg/mL High <1800 [facility] Comment on above: Heart Failure Unlike ly: < 300 pg/mLHeart Failure Likely< 50 Years: > 450 pg/mL50-75 Years: > 900 pg/mL>75 Years: > 1800 pg/mL Nitrite Test strip Ql (U)Ord ered By: Jose Mcgraw on 10-30-2024 Nitrite Ql (U) Negative Negative [facility] Protein Test strip Ql (U)Ord ered By: Jose Mcgraw on 10-30-2024 Protein Ql (U) 30 mg/dl High Negative [facility] Protein, Urine (Random)on Protein (U) [Mass/Vol] 41.2 mg/dL High 0.0-12.0 [facility] Comment on above: Performed By: #### L 501.1930, L400.0001, M100.678 ####[facility] [address] [place], [address] Squamous epithelial cells de tection in urine sediment by light microscopyOrdered By: Jose Mcgraw on 10-30-2024 Epithelial cells.squamous LM Ql (Urine sed) 0-5 SEEN /hpf 5-10 [facility] Troponin T.cardiac High sens itivity method [Mass/Vol]Ordered By: Jose Mcgraw on 10-30-2024 Troponin T High Sensitivity 4 Hour 43 ng/L High <14 [facility] Troponin T High Sensitivity 2 Hour 50 ng/L High <14 [facility] Troponin T High Sensitivity 45 ng/L High <14 [facility] Comment on above: Delta: 82 on 5-1130 Troponin T.cardiac [Mass/vol ume] in Serum or Plasma by High sensitivity methodOrdered By: Jose Mcgraw on 10-30-2024 Troponin T.cardiac High sensitivity method [Mass/Vol] 43 ng/L High <14 [facility] Troponin T.cardiac High sensitivity method [Mass/Vol] 50 ng/L High <14 [facility] Troponin T.cardiac High sensitivity method [Mass/Vol] 45 ng/L High <14 [facility] Comment on above: Delta: 82 on 5-1130 Type AND Screenon 10-30-2024 Ab SCREEN GEL Negative Normal [facility] Comment on above: Order Comment: A Performed By: #### B TS ####[facility] [address] [place], [address] Urinalysis, Completeon 10-30 CAST,HYALINE 0-5 SEEN Normal 0-5 [facility] Comment on above: Order Comment: COLLE CTOR TO SPECIFY Performed By: #### L 501.1930, L400.0001, M100.678 ####[facility] [address] [place], [address] Mucus Ql (Urine sed) RARE Normal [facility] Comment on above: Order Comment: COLLE CTOR TO SPECIFY Performed By: #### L 501.1930, L400.0001, M100.678 ####[facility] [address] [place], [address] BACTERIA 3+ /hpf Normal None Seen [facility] Comment on above: Order Comment: COLLE CTOR TO SPECIFY Performed By: #### L 501.1930, L400.0001, M100.678 ####[facility] [address] [place], [address] EPI,SQUAMOUS 0-5 SEEN Normal 5-10 [facility] Comment on above: Order Comment: COLLE CTOR TO SPECIFY Performed By: #### L 501.1930, L400.0001, M100.678 ####[facility] [address] [place], [address] WBC 5-10 SEEN Normal 0-5 [facility] Comment on above: Order Comment: COLLE CTOR TO SPECIFY Performed By: #### L 501.1930, L400.0001, M100.678 ####[facility] [address], [address] RBC 0 SEEN Normal 0-5 [facility] Comment on above: Order Comment: COLLE CTOR TO SPECIFY Performed By: #### L 501.1930, L400.0001, M100.678 ####[facility] [address] [place], [address] Urine blood detectionOrdered By: Jose Mcgraw on 10-30-2024 Urine Occult Blood Negative Negative [facility] Urine clarityOrdered By: Lizeth Mcgraw on 10-30-2024 Clarity (U) Clear Clear [facility] Urine color determinationOrd ered By: Jose Mcgraw on 10-30-2024 Color (U) Yellow Yellow [facility] Urine glucose detectionOrder ed By: Jose Mcgraw on 10-30-2024 Glucose Ql (U) Normal mg/dl Normal [facility] Urine leukocyte esterase det ection by dipstickOrdered By: Jose Mcgraw on 10-30-2024 Leukocyte esterase Test strip Ql (U) 100 /ul High Negative [facility] Urine pHOrdered By: Jose deleon on 10-30-2024 pH (U) 6.0 [pH] 5.0 - 8.0 [facility] Urine protein measurement (m ass/volume)Ordered By: Jose Mcgraw on 10-30-2024 Protein (U) [Mass/Vol] 41.2 mg/dL High 0.0-12.0 [facility] Urine sediment bacteria coun t by microscopy (number/high power field)Ordered By: Jose Mcgraw on 10-30-2024 Bacteria LM.HPF (Urine sed) [#/Area] 3 /[HPF] None Seen [facility] Urine specific gravity measu rementOrdered By: Jose Mcgraw on 10-30-2024 Specific gravity (U) [Rel density] 1.020 1.002-1.030 [facility] Urine urobilinogen measureme ntOrdered By: Jose Mcgraw on 10-30-2024 Urobilinogen Ql (U) Normal mg/dl Normal [facility] Urobilinogen Ql (U)Ordered B y: Jose Mcgraw on 10-30-2024 Urine Urobilinogen Normal mg/dl Normal [facility] White blood cell countOrdere d By: Jose Mcgraw on 10-30-2024 Urine WBC 5-10 SEEN /hpf 0-5 [facility] White blood cell count 5-10 SEEN /hpf 0-5 [facility] 12 Lead EKG performed by BMS on 10-24-2024 12 Lead EKG performed by [facility]MS Normal [facility] Absolute lymphocyte countOrd ered By: Ning Spencer on 10-24-2024 Lymphocytes Auto (Unsp spec) [#/Vol] 1.66 10*3/uL 0.83-4.51 [facility] Absolute neutrophil countOrd ered By: Ning Spencer on 10-24-2024 Neutrophils (Bld) [#/Vol] 3.7 10*3/uL 2.0-7.7 [facility] Anion gap in Serum or Plasma Ordered By: Ning Spencer on 10-24-2024 Anion gap [Moles/Vol] 11 mmol/L 5-15 [facility] Automated lymphocyte count a s percentage of total leukocytesOrdered By: Ning Spencer on 10-24-2024 Lymphocytes/100 WBC Auto (Unsp spec) 28.0 % 19-41 [facility] BUN/creatinine ratioOrdered By: Ning Spencer on 10-24-2024 Urea nitrogen/Creatinine [Mass ratio] 19.2 mg/mg 10-20 [facility] Basic Metabolic Profile (BMP )on 10-24-2024 BUN/CRE 19.2 RATIO Normal - [facility] Comment on above: Performed By: #### L 500.2500, L100.0100 ####[facility] [address] [place], [address] Calcium [Mass/Vol] 9.2 mg/dL Normal 7.6-11.0 [facility] Comment on above: Performed By: #### L 500.2500, L100.0100 ####[facility] [address] [place], [address] Chloride [Moles/Vol] 106 mmol/L Normal 98-108 [facility] Comment on above: Performed By: #### L 500.2500, L100.0100 ####[facility] [address] [place], [address] CO2 [Moles/Vol] 19.4 mmol/L Low 21.0-32.0 [facility] Comment on above: Performed By: #### L 500.2500, L100.0100 ####[facility] [address] [place], [address] Creatinine [Mass/Vol] 2.03 mg/dL High 0.70-1.20 [facility] Comment on above: Performed By: #### L 500.2500, L100.0100 ####[facility] [address] [place], [address] GAP 11 Normal 5-15 [facility] Comment on above: Performed By: #### L 500.2500, L100.0100 ####[facility] [address] [place], [address] GFR/1.73 sq M.predicted among non-blacks MDRD (S/P/Bld) [Vol rate/Area] 23 mL/min/{1.73_m2} Low >60 [facility] Comment on above: Result Comment: mL/m in/1.73m2 CKD-EPI Creatinine Equation (2020) Performed By: #### L 500.2500, L100.0100 ####[facility] [address] [place], [address] Glucose [Mass/Vol] 109 mg/dL High 70-99 [facility] Comment on above: Performed By: #### L 500.2500, L100.0100 ####[facility] [address] [place], [address] Potassium [Moles/Vol] 4.9 mmol/L Normal 3.3-5.1 [facility] Comment on above: Performed By: #### L 500.2500, L100.0100 ####[facility] [address] [place], [address] Sodium [Moles/Vol] 137 mmol/L Normal 133-145 [facility] Comment on above: Performed By: #### L 500.2500, L100.0100 ####[facility] [address] [place], [address] Urea nitrogen [Mass/Vol] 39 mg/dL High 4-19 [facility] Comment on above: Performed By: #### L 500.2500, L100.0100 ####[facility] [address] [place], [address] Basophil percentageOrdered B y: Ning Spencer on 10-24-2024 Basophils/100 WBC (Bld) 0.8 % 0-1 [facility] CBC W/Diff, Automatedon 09-28 Absolute Lymph 1.66 X10 3/uL Normal 0.83-4.51 [facility] Comment on above: Performed By: #### L 500.2500, L100.0100 ####[facility] [address] [place], [address] Absolute Neut 3.7 X10 3/uL Normal 2.0-7.7 [facility] Comment on above: Performed By: #### L 500.2500, L100.0100 ####[facility] [address] [place], [address] Basophils/100 WBC (Bld) 0.8 % Normal 0-1 [facility] Comment on above: Performed By: #### L 500.2500, L100.0100 ####[facility] [address] [place], [address] Eosinophils/100 WBC (Bld) 1.7 % Normal 0-5 [facility] Comment on above: Performed By: #### L 500.2500, L100.0100 ####[facility] [address] [place], [address] Erythrocyte distribution width (RBC) [Ratio] 12.8 % Normal 11.6-14.6 [facility] Comment on above: Performed By: #### L 500.2500, L100.0100 ####[facility] [address] [place], [address] Hematocrit (Bld) [Volume fraction] 33.8 % Low 37-47 [facility] Comment on above: Performed By: #### L 500.2500, L100.0100 ####[facility] [address] [place], [address] Hemoglobin (Bld) [Mass/Vol] 11.0 g/dL Low 12.0-15.0 [facility] Comment on above: Performed By: #### L 500.2500, L100.0100 ####[facility] [address] [place], [address] IG% 0.500 Normal 0.0-0.9 [facility] Comment on above: Result Comment: IG% - Immature Granulocytes (promyelocytes, myelocytes andmetamyelocytes) > 1% indicates that a LEFT SHIFT is Present. Performed By: #### L 500.2500, L100.0100 ####[facility] [address] [place], [address] Lymphocytes/100 WBC (Bld) 28.0 % Normal 19-41 [facility] Comment on above: Performed By: #### L 500.2500, L100.0100 ####[facility] [address] [place], [address] MCH (RBC) [Entitic mass] 32.0 pg Normal 27.0-32.0 [facility] Comment on above: Performed By: #### L 500.2500, L100.0100 ####[facility] [address] [place], [address] MCHC (RBC) [Mass/Vol] 32.5 g/dL Normal 32-36 [facility] Comment on above: Performed By: #### L 500.2500, L100.0100 ####[facility] [address] [place], [address] MCV (RBC) [Entitic vol] 98.3 fL Normal 81-99 [facility] Comment on above: Performed By: #### L 500.2500, L100.0100 ####[facility] [address] [place], [address] Monocytes/100 WBC (Bld) 6.8 % Normal 0-10 [facility] Comment on above: Performed By: #### L 500.2500, L100.0100 ####[facility] [address] [place], [address] Neutrophils/100 WBC (Bld) 62.2 % Normal 47-70 [facility] Comment on above: Performed By: #### L 500.2500, L100.0100 ####[facility] [address] [place], [address] Nucleated RBC (Bld) [#/Vol] 0 10*3/uL Normal 0-5 [facility] Comment on above: Performed By: #### L 500.2500, L100.0100 ####[facility] [address] [place], [address] Platelet mean volume (Bld) [Entitic vol] 11.0 fL Normal 6.2-12.0 [facility] Comment on above: Performed By: #### L 500.2500, L100.0100 ####[facility] [address] [place], [address] Platelets (Bld) [#/Vol] 220 10*3/uL Normal 150-450 [facility] Comment on above: Performed By: #### L 500.2500, L100.0100 ####[facility] [address] [place], [address] RBC (Bld) [#/Vol] 3.44 10*6/uL Low 4.2-5.4 [facility] Comment on above: Performed By: #### L 500.2500, L100.0100 ####[facility] [address] [place], [address] RDW SD 46.2 fl High 35.1-43.9 [facility] Comment on above: Performed By: #### L 500.2500, L100.0100 ####[facility] [address] [place], [address] WBC (Bld) [#/Vol] 5.9 10*3/uL Normal 4.4-11.0 [facility] Comment on above: Performed By: #### L 500.2500, L100.0100 ####[facility] [address] [place], [address] Carbon dioxide, total [Moles /volume] in Central venous bloodOrdered By: Ning Spencer on 10-24-2024 CO2 [Moles/Vol] 19.4 mmol/L Low 21.0-32.0 [facility] Cardiology Visit Reporton Cardiology Visit Report Normal [facility] Chloride assayOrdered By: Colin Spencer on 10-24-2024 Chloride [Moles/Vol] 106 mmol/L 98-108 [facility] Eosinophil percentageOrdered By: Ning Spencer on 10-24-2024 Eosinophils/100 WBC (Bld) 1.7 % 0-5 [facility] Erythrocyte distribution wid th (RBC) [Ratio]Ordered By: Ning Spencer on 10-24-2024 Erythrocyte distribution width (RBC) [Entitic vol] 46.2 fL High 35.1-43.9 [facility] Erythrocyte distribution wid th ratioOrdered By: Ning Spencer on 10-24-2024 Erythrocyte distribution width (RBC) [Ratio] 12.8 % 11.6-14.6 [facility] Erythrocyte distribution wid th standard deviationOrdered By: Ning Spencer on 10-24-2024 Erythrocyte distribution width (RBC) [Ratio] 46.2 fl High 35.1-43.9 [facility] GFR/1.73 sq M.predicted jennifer g non-blacks MDRD (S/P/Bld) [Vol rate/Area]Ordered By: Ning Spencer on 10-24-2024 Estimated GFR (MDRD) Non-Af Amer 23 Low >60 [facility] Comment on above: mL/min/1.73m2 CKD-EP I Creatinine Equation (2020) Glomerular filtration rate ( GFR) estimation/1.73 sq m using serum, plasma, or whole bOrdered By: Ning Spencer on 10-24-2024 GFR/1.73 sq M.predicted among non-blacks MDRD (S/P/Bld) [Vol rate/Area] 23 mL/min/{1.73_m2} Low >60 [facility] Comment on above: mL/min/1.73m2 CKD-EP I Creatinine Equation (2020) Hematocrit Auto (Bld) [Volum e fraction]Ordered By: Ning Spencer on 10-24-2024 Hematocrit (Bld) [Volume fraction] 33.8 % Low 37-47 [facility] Hemoglobin measurementOrdere d By: Ning Spencer on 10-24-2024 Hemoglobin (Bld) [Mass/Vol] 11.0 g/dL Low 12.0-15.0 [facility] Immature granulocytes/100 WB C Auto (Bld)Ordered By: Ning Spencer on 10-24-2024 Immature granulocytes/100 WBC (Bld) 0.500 % 0.0-0.9 [facility] Comment on above: IG% - Immature Granu locytes (promyelocytes, myelocytes and metamyelocytes) > 1% indicates that a LEFT SHIFT is Present. Lymphocytes Auto (Unsp spec) [#/Vol]Ordered By: Ning Spencer on 10-24-2024 Lymphocytes (Bld) [#/Vol] 1.66 10*3/uL 0.83-4.51 [facility] Lymphocytes/100 WBC Auto (Un sp spec)Ordered By: Ning Spencer on 10-24-2024 Lymphocytes/100 WBC (Bld) 28.0 % 19-41 [facility] MCV (mean corpuscular volume ) determinationOrdered By: Ning Spencer on 10-24-2024 MCV (RBC) [Entitic vol] 98.3 fL 81-99 [facility] Mean corpuscular hemoglobin (MCH) determinationOrdered By: Ning Spencer on 10-24-2024 MCH (RBC) [Entitic mass] 32.0 pg 27.0-32.0 [facility] Mean corpuscular hemoglobin concentration (MCHC) determinationOrdered By: Ning Spencre on 10-24-2024 MCHC (RBC) [Mass/Vol] 32.5 g/dL 32-36 [facility] Mean platelet volume determi nationOrdered By: Ning Spencer on 10-24-2024 Platelet mean volume (Bld) [Entitic vol] 11.0 fL 6.2-12.0 [facility] Monocyte percentageOrdered B y: Ning Spencer on 10-24-2024 Monocytes/100 WBC (Bld) 6.8 % 0-10 [facility] Neutrophil percentageOrdered By: Ning Spencer on 10-24-2024 Neutrophils/100 WBC (Bld) 62.2 % 47-70 [facility] Nucleated red blood cell per centageOrdered By: Ning Spencer on 10-24-2024 Nucleated RBC/100 WBC (Bld) [Ratio] 0 % 0-5 [facility] Platelet countOrdered By: Colin Spencer on 10-24-2024 Platelets (Bld) [#/Vol] 220 10*3/uL 150-450 [facility] Potassium (Unsp spec) [Mass/ Vol]Ordered By: Ning Spencer on 10-24-2024 Potassium [Moles/Vol] 4.9 mmol/L 3.3-5.1 [facility] Potassium measurement (mass/ volume)Ordered By: Ning Spencer on 10-24-2024 Potassium (Unsp spec) [Mass/Vol] 4.9 mmol/L 3.3-5.1 [facility] RBC Auto (Bld) [#/Vol]Ordere d By: Ning Spencer on 10-24-2024 RBC (Bld) [#/Vol] 3.44 10*6/uL Low 4.2-5.4 [facility] Serum creatinine measurement (mass/volume)Ordered By: Ning Spencer on 10-24-2024 Creatinine [Mass/Vol] 2.03 mg/dL High 0.70-1.20 [facility] Serum glucose measurement (m ass/volume)Ordered By: Ning Spencer on 10-24-2024 Glucose [Mass/Vol] 109 mg/dL High 70-99 [facility] Serum or plasma calcium dex urement (mass/volume)Ordered By: Ning Spencer on 10-24-2024 Calcium [Mass/Vol] 9.2 mg/dL 7.6-11.0 [facility] Serum or plasma urea nitroge n measurement (mass/volume)Ordered By: Ning Spencer on 10-24-2024 Urea nitrogen [Mass/Vol] 39 mg/dL High 4-19 [facility] Sodium levelOrdered By: Linda Spencer on 10-24-2024 Sodium [Moles/Vol] 137 mmol/L 133-145 [facility] White blood cell (WBC) count Ordered By: Ning Spencer on 10-24-2024 WBC (Bld) [#/Vol] 5.9 10*3/uL 4.4-11.0 [facility] CNOVon 10-17-2024 CNOV Office Visit (INTMWS) ELIZABETHREINIER LOPEZ ([id number]) 1935 F NFR Date Time Provider Department 10/17/24 1:40 PM SILVIO DRAKE INTMWS During your visit today, we recorded the following information about you: Temperature Pulse Respiration Blood pressure 96.8 degrees 62/minute 16/minute 152/84 Weight 61.7 kg Silvio Drake APRN.CNP 10/17/2024 3:13 PM Signed CC: Patient presents with: Recheck: Hosp follow up Afib HPI Reinier Elizabeth is a 88 year old female who presents today for follow up on hospitalization for a-fib. Was admitted to to [facility] recently for a-fib with RVR and was discharged on 10/13. Recording using inc[employer] software for draft documentation of the visit was discussed with the patient/authorized business office representative; all questions welcomed and answered. Patient/authorized business office representative agreed to proceed A-fib with RVR: - Recent ER visit and hospital admission with HR of 136 bpm. - Experienced a burning sensation in the chest during the night, which subsided around 04:00. - Noticed tachycardia upon waking and sought medical attention. - Currently under the care of [facility]; next appointment scheduled for November [...] 2 (age, bleeding) At risk for stroke [id number] = 4 (HTN, age2, female gender) Benign [...] Glaucoma - right eye left eye - [facility] . Dr Gao REPAIR FIRST ABDOMINAL [...] subcutaneously once (more content not included)... Normal [facility] UA DIP, URINE (POC)on 2024 BILIRUBIN UA (POCT) Negative Negative [facility] CLARITY UA (POCT) Clear [facility] COLOR UA (POCT) Yellow [facility] GLUCOSE UA (POCT) Negative Negative mg/dL [facility] Hemoglobin Ql (U) Negative Negative [facility] KETONE UA (POCT) Negative Negative mg/dL [facility] LEUKOCYTES UA (POCT) Negative [facility] ([facility]) Negative Negative [facility] PH UA (POCT) 5.5 4.5 - 8.0 [facility] Protein Ql (U) Negative Negative mg/dL [facility] SPECIFIC GRAVITY UA (POCT) 1.02 1.005 - 1.030 [facility] UROBILINOGEN UA (POCT) 0.2 Michelle l E.U./dL [facility] Location:[facility], [address] [place] [address], [place], [address] [facility] POINT OF CARE [facility] Absolute lymphocyte countOrd ered By: Nirav Cain on 10-13-2024 Lymphocytes Auto (Unsp spec) [#/Vol] 1.58 10*3/uL 0.83-4.51 [facility] Absolute neutrophil countOrd ered By: Nirav Cain on 10-13-2024 Neutrophils (Bld) [#/Vol] 2.2 10*3/uL 2.0-7.7 [facility] Anion gap in Serum or Plasma Ordered By: Nirav Cain on 10-13-2024 Anion gap [Moles/Vol] 9 mmol/L 5-15 [facility] Automated lymphocyte count a s percentage of total leukocytesOrdered By: Nirav Cain on 10-13-2024 Lymphocytes/100 WBC Auto (Unsp spec) 33.8 % 19-41 [facility] BUN/creatinine ratioOrdered By: Nirav Cain on 10-13-2024 Urea nitrogen/Creatinine [Mass ratio] 16.6 mg/mg 10- [facility] Basic Metabolic Profile (BMP )on 10-13-2024 BUN/CRE 16.6 RATIO Normal - [facility] Comment on above: Performed By: #### L 100.0100, L500.2500 ####[facility] [address] [place], [place], [id number] Calcium [Mass/Vol] 8.6 mg/dL Normal 7.6-11.0 [facility] Comment on above: Performed By: #### L 100.0100, L500.2500 ####[facility] [address] [place], [address] Chloride [Moles/Vol] 111 mmol/L High 98-108 [facility] Comment on above: Performed By: #### L 100.0100, L500.2500 ####[facility] [address], [address] CO2 [Moles/Vol] 17.9 mmol/L Low 21.0-32.0 [facility] Comment on above: Performed By: #### L 100.0100, L500.2500 ####[facility] [address] [place], [address] Creatinine [Mass/Vol] 1.43 mg/dL High 0.70-1.20 [facility] Comment on above: Performed By: #### L 100.0100, L500.2500 ####[facility] [address] [place], [address] ECRCL 24.70 ml/min Low 50-250 [facility] Comment on above: Performed By: #### L 100.0100, L500.2500 ####[facility] [address] [place], [address] GAP 9 Normal 5-15 [facility] Comment on above: Performed By: #### L 100.0100, L500.2500 ####[facility] [address] [place], [address] GFR/1.73 sq M.predicted among non-blacks MDRD (S/P/Bld) [Vol rate/Area] 35 mL/min/{1.73_m2} Low >60 [facility] Comment on above: Result Comment: mL/m in/1.73m2 CKD-EPI Creatinine Equation (2020) Performed By: #### L 100.0100, L500.2500 ####[facility] [address] [place], [address] Glucose [Mass/Vol] 96 mg/dL Normal 70-99 [facility] Comment on above: Performed By: #### L 100.0100, L500.2500 ####[facility] [address] [place], [address] Potassium [Moles/Vol] 4.0 mmol/L Normal 3.3-5.1 [facility] Comment on above: Performed By: #### L 100.0100, L500.2500 ####[facility] [address] [place], [address] Sodium [Moles/Vol] 138 mmol/L Normal 133-145 [facility] Comment on above: Performed By: #### L 100.0100, L500.2500 ####[facility] [address] [place], [address] Urea nitrogen [Mass/Vol] 24 mg/dL High 4-19 [facility] Comment on above: Performed By: #### L 100.0100, L500.2500 ####[facility] [address] [place], [address] Basophil percentageOrdered B y: Nirav Cain on 10-13-2024 Basophils/100 WBC (Bld) 1.1 % High 0-1 [facility] CBC W/Diff, Automatedon 09-27 Absolute Lymph 1.58 X10 3/uL Normal 0.83-4.51 [facility] Comment on above: Performed By: #### L 100.0100, L500.2500 ####[facility] [address] [place], [address] Absolute Neut 2.2 X10 3/uL Normal 2.0-7.7 [facility] Comment on above: Performed By: #### L 100.0100, L500.2500 ####[facility] [address] [place], [address] Basophils/100 WBC (Bld) 1.1 % High 0-1 [facility] Comment on above: Performed By: #### L 100.0100, L500.2500 ####[facility] [address] [place], [address] Eosinophils/100 WBC (Bld) 7.7 % High 0-5 [facility] Comment on above: Performed By: #### L 100.0100, L500.2500 ####[facility] [address] [place], [address] Erythrocyte distribution width (RBC) [Ratio] 13.1 % Normal 11.6-14.6 [facility] Comment on above: Performed By: #### L 100.0100, L500.2500 ####[facility] [address] [place], [address] Hematocrit (Bld) [Volume fraction] 31.0 % Low 37-47 [facility] Comment on above: Performed By: #### L 100.0100, L500.2500 ####[facility] [address] [place], [address] Hemoglobin (Bld) [Mass/Vol] 10.2 g/dL Low 12.0-15.0 [facility] Comment on above: Performed By: #### L 100.0100, L500.2500 ####[facility] [address] [place], [address] IG% 0.200 Normal 0.0-0.9 [facility] Comment on above: Result Comment: IG% - Immature Granulocytes (promyelocytes, myelocytes andmetamyelocytes) > 1% indicates that a LEFT SHIFT is Present. Performed By: #### L 100.0100, L500.2500 ####[facility] [address] [place], [address] Lymphocytes/100 WBC (Bld) 33.8 % Normal 19-41 [facility] Comment on above: Performed By: #### L 100.0100, L500.2500 ####[facility] [address] [place], [address] MCH (RBC) [Entitic mass] 32.0 pg Normal 27.0-32.0 [facility] Comment on above: Performed By: #### L 100.0100, L500.2500 ####[facility] [address] [place], [address] MCHC (RBC) [Mass/Vol] 32.9 g/dL Normal 32-36 [facility] Comment on above: Performed By: #### L 100.0100, L500.2500 ####[facility] [address] [place], [address] MCV (RBC) [Entitic vol] 97.2 fL Normal 81-99 [facility] Comment on above: Performed By: #### L 100.0100, L500.2500 ####[facility] [address] [place], [address] Monocytes/100 WBC (Bld) 10.0 % Normal 0-10 [facility] Comment on above: Performed By: #### L 100.0100, L500.2500 ####[facility] [address] [place], [address] Neutrophils/100 WBC (Bld) 47.2 % Normal 47-70 [facility] Comment on above: Performed By: #### L 100.0100, L500.2500 ####[facility] [address] [place], [address] Nucleated RBC (Bld) [#/Vol] 0 10*3/uL Normal 0-5 [facility] Comment on above: Performed By: #### L 100.0100, L500.2500 ####[facility] [address] [place], [address] Platelet mean volume (Bld) [Entitic vol] 10.2 fL Normal 6.2-12.0 [facility] Comment on above: Performed By: #### L 100.0100, L500.2500 ####[facility] [address] [place], [address] Platelets (Bld) [#/Vol] 192 10*3/uL Normal 150-450 [facility] Comment on above: Performed By: #### L 100.0100, L500.2500 ####[facility] [address] [place], [address] RBC (Bld) [#/Vol] 3.19 10*6/uL Low 4.2-5.4 [facility] Comment on above: Performed By: #### L 100.0100, L500.2500 ####[facility] [address] [place], [address] RDW SD 46.5 fl High 35.1-43.9 [facility] Comment on above: Performed By: #### L 100.0100, L500.2500 ####[facility] [address] [place], [address] WBC (Bld) [#/Vol] 4.7 10*3/uL Normal 4.4-11.0 [facility] Comment on above: Performed By: #### L 100.0100, L500.2500 ####[facility] [address] [place], [address] Carbon dioxide, total [Moles /volume] in Central venous bloodOrdered By: Nirav Cain on 10-13-2024 CO2 [Moles/Vol] 17.9 mmol/L Low 21.0-32.0 [facility] Chloride assayOrdered By: Mary Cain on 10-13-2024 Chloride [Moles/Vol] 111 mmol/L High 98-108 [facility] Discharge Instructionon 09-27 Discharge Instruction Normal [facility] Electrocardiogram reportOrde red By: Jake Kingston on 10-13-2024 EKG study [facility] [address] [place] [address] 12 Lead EKG 10/11/24 1726 MR#: [id number] Acct: [id number] Name: REINIER ELIZABETH Rep #:[id number] : 1935 88 From: Jake al MD Attending Dr: Dr. Nirav Cain MD Status: ADM IN Ordering Dr: Jake Kingston MD Date: 10/11/24 Location: [facility] Sex: F C Admitted: 10/11/24 Test Reason [...] DATA IS UNCONFIRMED Confirmed by Jake Kingston ([id number]), marketing editor LUH ASHLEY ([id number]) on 59:39:42 AM Referred By: TIMMY Confirmed By: Jake Kingston 10/13/24 0939 Date _ Jake Kingston MD CC: Dr. Anay Schuler MD; Dr. Jake Kingston MD; Dr. Nirav Cain MD ~ Signed [facility] Work Phone: Eosinophil percentageOrdered By: Nirav Cain on 10-13-2024 Eosinophils/100 WBC (Bld) 7.7 % High 0-5 [facility] Erythrocyte distribution wid th (RBC) [Ratio]Ordered By: Nirav Cain on 10-13-2024 Erythrocyte distribution width (RBC) [Entitic vol] 46.5 fL High 35.1-43.9 [facility] Erythrocyte distribution wid th ratioOrdered By: Nirav Cain on 10-13-2024 Erythrocyte distribution width (RBC) [Ratio] 13.1 % 11.6-14.6 [facility] Erythrocyte distribution wid th standard deviationOrdered By: Nirav Cain on 10-13-2024 Erythrocyte distribution width (RBC) [Ratio] 46.5 fl High 35.1-43.9 [facility] Estimation of creatinine asael aranceOrdered By: Nirav Cain on 10-13-2024 Estimated Creatinine Clearance Calc 24.70 ml/min Low 50-250 [facility] GFR/1.73 sq M.predicted jennifer g non-blacks MDRD (S/P/Bld) [Vol rate/Area]Ordered By: Nirav Cain on 10-13-2024 Estimated GFR (MDRD) Non-Af Amer 35 Low >60 [facility] Comment on above: mL/min/1.73m2 CKD-EP I Creatinine Equation (2020) Glomerular filtration rate ( GFR) estimation/1.73 sq m using serum, plasma, or whole bOrdered By: Nirav Cain on 10-13-2024 GFR/1.73 sq M.predicted among non-blacks MDRD (S/P/Bld) [Vol rate/Area] 35 mL/min/{1.73_m2} Low >60 [facility] Comment on above: mL/min/1.73m2 CKD-EP I Creatinine Equation (2020) Hematocrit Auto (Bld) [Volum e fraction]Ordered By: Nirav Cain on 10-13-2024 Hematocrit (Bld) [Volume fraction] 31.0 % Low 37-47 [facility] Hemoglobin measurementOrdere d By: Nirav Cain on 10-13-2024 Hemoglobin (Bld) [Mass/Vol] 10.2 g/dL Low 12.0-15.0 [facility] Immature granulocytes/100 WB C Auto (Bld)Ordered By: Nirav Cain on 10-13-2024 Immature granulocytes/100 WBC (Bld) 0.200 % 0.0-0.9 [facility] Comment on above: IG% - Immature Granu locytes (promyelocytes, myelocytes and metamyelocytes) > 1% indicates that a LEFT SHIFT is Present. Lymphocytes Auto (Unsp spec) [#/Vol]Ordered By: Nirav Cain on 10-13-2024 Lymphocytes (Bld) [#/Vol] 1.58 10*3/uL 0.83-4.51 [facility] Lymphocytes/100 WBC Auto (Un sp spec)Ordered By: Nirav Cain on 10-13-2024 Lymphocytes/100 WBC (Bld) 33.8 % 19-41 [facility] MCV (mean corpuscular volume ) determinationOrdered By: Nirav Cain on 10-13-2024 MCV (RBC) [Entitic vol] 97.2 fL 81-99 [facility] Mean corpuscular hemoglobin (MCH) determinationOrdered By: Nirav Cain on 10-13-2024 MCH (RBC) [Entitic mass] 32.0 pg 27.0-32.0 [facility] Mean corpuscular hemoglobin concentration (MCHC) determinationOrdered By: Nirav Cain on 10-13-2024 MCHC (RBC) [Mass/Vol] 32.9 g/dL 32-36 [facility] Mean platelet volume determi nationOrdered By: Nirav Cain on 10-13-2024 Platelet mean volume (Bld) [Entitic vol] 10.2 fL 6.2-12.0 [facility] Monocyte percentageOrdered B y: Nirav Cain on 10-13-2024 Monocytes/100 WBC (Bld) 10.0 % 0-10 [facility] Neutrophil percentageOrdered By: Nirav Cain on 10-13-2024 Neutrophils/100 WBC (Bld) 47.2 % 47-70 [facility] Nucleated red blood cell per centageOrdered By: Nirav Cain on 10-13-2024 Nucleated RBC/100 WBC (Bld) [Ratio] 0 % 0-5 [facility] Platelet countOrdered By: Mary Cain on 10-13-2024 Platelets (Bld) [#/Vol] 192 10*3/uL 150-450 [facility] Potassium (Unsp spec) [Mass/ Vol]Ordered By: Nirav Cain on 10-13-2024 Potassium [Moles/Vol] 4.0 mmol/L 3.3-5.1 [facility] Potassium measurement (mass/ volume)Ordered By: Nirav Cain on 10-13-2024 Potassium (Unsp spec) [Mass/Vol] 4.0 mmol/L 3.3-5.1 [facility] RBC Auto (Bld) [#/Vol]Ordere d By: Nirav Cain on 10-13-2024 RBC (Bld) [#/Vol] 3.19 10*6/uL Low 4.2-5.4 [facility] Serum creatinine measurement (mass/volume)Ordered By: Nirav Cain on 10-13-2024 Creatinine [Mass/Vol] 1.43 mg/dL High 0.70-1.20 [facility] Serum glucose measurement (m ass/volume)Ordered By: Nirav Cain on 10-13-2024 Glucose [Mass/Vol] 96 mg/dL 70-99 [facility] Serum or plasma calcium dex urement (mass/volume)Ordered By: Nirav Cain on 10-13-2024 Calcium [Mass/Vol] 8.6 mg/dL 7.6-11.0 [facility] Serum or plasma urea nitroge n measurement (mass/volume)Ordered By: Nirav Cain on 10-13-2024 Urea nitrogen [Mass/Vol] 24 mg/dL High 4-19 [facility] Sodium levelOrdered By: Azar Cain on 10-13-2024 Sodium [Moles/Vol] 138 mmol/L 133-145 [facility] White blood cell (WBC) count Ordered By: Nirav Cain on 10-13-2024 WBC (Bld) [#/Vol] 4.7 10*3/uL 4.4-11.0 [facility] Bilirubin, totalOrdered By: Inocencia Long on 10-12-2024 Bilirubin [Mass/Vol] 0.34 mg/dL 0.00-1.30 [facility] CBC W/Diff, Automatedon - Absolute Lymph 1.24 X10 3/uL Normal 0.83-4.51 [facility] Comment on above: Performed By: #### L 500.4050, L500.4100, L100.0100 ####[facility] [address] [place], [address] Absolute Neut 2.5 X10 3/uL Normal 2.0-7.7 [facility] Comment on above: Performed By: #### L 500.4050, L500.4100, L100.0100 ####[facility] [address] [place], [address] Basophils/100 WBC (Bld) 0.4 % Normal 0-1 [facility] Comment on above: Performed By: #### L 500.4050, L500.4100, L100.0100 ####[facility] [address], [address] Eosinophils/100 WBC (Bld) 7.5 % High 0-5 [facility] Comment on above: Performed By: #### L 500.4050, L500.4100, L100.0100 ####[facility] [address] [place], [address] Erythrocyte distribution width (RBC) [Ratio] 13.1 % Normal 11.6-14.6 [facility] Comment on above: Performed By: #### L 500.4050, L500.4100, L100.0100 ####[facility] [address] [place], [address] Hematocrit (Bld) [Volume fraction] 27.6 % Low 37-47 [facility] Comment on above: Performed By: #### L 500.4050, L500.4100, L100.0100 ####[facility] [address] [place], [address] Hemoglobin (Bld) [Mass/Vol] 9.1 g/dL Low 12.0-15.0 [facility] Comment on above: Performed By: #### L 500.4050, L500.4100, L100.0100 ####[facility] [address] [place], [address] IG% 0.200 Normal 0.0-0.9 [facility] Comment on above: Result Comment: IG% - Immature Granulocytes (promyelocytes, myelocytes andmetamyelocytes) > 1% indicates that a LEFT SHIFT is Present. Performed By: #### L 500.4050, L500.4100, L100.0100 ####[facility] [address] [place], [address] Lymphocytes/100 WBC (Bld) 26.7 % Normal 19-41 [facility] Comment on above: Performed By: #### L 500.4050, L500.4100, L100.0100 ####[facility] [address] [place], [address] MCH (RBC) [Entitic mass] 31.6 pg Normal 27.0-32.0 [facility] Comment on above: Performed By: #### L 500.4050, L500.4100, L100.0100 ####[facility] [address] [place], [address] MCHC (RBC) [Mass/Vol] 33.0 g/dL Normal 32-36 [facility] Comment on above: Performed By: #### L 500.4050, L500.4100, L100.0100 ####[facility] [address] [place], [address] MCV (RBC) [Entitic vol] 95.8 fL Normal 81-99 [facility] Comment on above: Performed By: #### L 500.4050, L500.4100, L100.0100 ####[facility] [address] [place], [address] Monocytes/100 WBC (Bld) 11.0 % High 0-10 [facility] Comment on above: Performed By: #### L 500.4050, L500.4100, L100.0100 ####[facility] [address] [place], [address] Neutrophils/100 WBC (Bld) 54.2 % Normal 47-70 [facility] Comment on above: Performed By: #### L 500.4050, L500.4100, L100.0100 ####[facility] [address] [place], [place], [address] Nucleated RBC (Bld) [#/Vol] 0 10*3/uL Normal 0-5 [facility] Comment on above: Performed By: #### L 500.4050, L500.4100, L100.0100 ####[facility] [address] [place], [address] Platelet mean volume (Bld) [Entitic vol] 10.3 fL Normal 6.2-12.0 [facility] Comment on above: Performed By: #### L 500.4050, L500.4100, L100.0100 ####[facility] [address] [place], [address] Platelets (Bld) [#/Vol] 181 10*3/uL Normal 150-450 [facility] Comment on above: Performed By: #### L 500.4050, L500.4100, L100.0100 ####[facility] [address] [place], [address] RBC (Bld) [#/Vol] 2.88 10*6/uL Low 4.2-5.4 [facility] Comment on above: Performed By: #### L 500.4050, L500.4100, L100.0100 ####[facility] [address] [place], [address] RDW SD 46.0 fl High 35.1-43.9 [facility] Comment on above: Performed By: #### L 500.4050, L500.4100, L100.0100 ####[facility] [address] [place], [address] WBC (Bld) [#/Vol] 4.6 10*3/uL Normal 4.4-11.0 [facility] Comment on above: Performed By: #### L 500.4050, L500.4100, L100.0100 ####[facility] [address] [place], [address] Calculated very low density lipoprotein (VLDL) cholesterol measurementOrdered By: Inocencia Long on 10-12-2024 Calculated very low density lipoprotein (VLDL) cholesterol measurement 17 mg/dL - [facility] VLDL Cholesterol 17 mg/dL -40 [facility] Comprehensive Metabolic Prof ilon 10-12-2024 Albumin [Mass/Vol] 3.4 g/dL Normal 3.4-4.8 [facility] Comment on above: Order Comment: Comme nts: Fasting Lipid Profile Performed By: #### L 500.4050, L500.4100, L100.0100 ####[facility] [address] [place], [address] Albumin/Globulin [Mass ratio] 1.3 {ratio} Normal 0.9-2.4 [facility] Comment on above: Order Comment: Comme nts: Fasting Lipid Profile Performed By: #### L 500.4050, L500.4100, L100.0100 ####[facility] [address] [place], [address] ALK PHOS 38 U/L Normal 35-104 [facility] Comment on above: Order Comment: Comme nts: Fasting Lipid Profile Performed By: #### L 500.4050, L500.4100, L100.0100 ####[facility] [address] [place], [address] ALT [Catalytic activity/Vol] 13 U/L Normal <=34 [facility] Comment on above: Order Comment: Comme nts: Fasting Lipid Profile Performed By: #### L 500.4050, L500.4100, L100.0100 ####[facility] [address] [place], [address] AST [Catalytic activity/Vol] 19 U/L Normal <=31 [facility] Comment on above: Order Comment: Comme nts: Fasting Lipid Profile Performed By: #### L 500.4050, L500.4100, L100.0100 ####[facility] [address] [place], [address] Bilirubin [Mass/Vol] 0.34 mg/dL Normal 0.00-1.30 [facility] Comment on above: Order Comment: Comme nts: Fasting Lipid Profile Performed By: #### L 500.4050, L500.4100, L100.0100 ####[facility] [address] [place], [address] BUN/CRE 16.6 RATIO Normal 10-20 [facility] Comment on above: Order Comment: Comme nts: Fasting Lipid Profile Performed By: #### L 500.4050, L500.4100, L100.0100 ####[facility] [address] [place], [address] Calcium [Mass/Vol] 8.4 mg/dL Normal 7.6-11.0 [facility] Comment on above: Order Comment: Comme nts: Fasting Lipid Profile Performed By: #### L 500.4050, L500.4100, L100.0100 ####[facility] [address] [place], [address] Chloride [Moles/Vol] 108 mmol/L Normal 98-108 [facility] Comment on above: Order Comment: Comme nts: Fasting Lipid Profile Performed By: #### L 500.4050, L500.4100, L100.0100 ####[facility] [address] [place], [address] CO2 [Moles/Vol] 18.5 mmol/L Low 21.0-32.0 [facility] Comment on above: Order Comment: Comme nts: Fasting Lipid Profile Performed By: #### L 500.4050, L500.4100, L100.0100 ####[facility] [address] [place], [address] Creatinine [Mass/Vol] 1.63 mg/dL High 0.70-1.20 [facility] Comment on above: Order Comment: Comme nts: Fasting Lipid Profile Performed By: #### L 500.4050, L500.4100, L100.0100 ####[facility] [address] [place], [address] ECRCL 21.24 ml/min Low 50-250 [facility] Comment on above: Order Comment: Comme nts: Fasting Lipid Profile Performed By: #### L 500.4050, L500.4100, L100.0100 ####[facility] [address] [place], [address] GAP 10 Normal 5-15 [facility] Comment on above: Order Comment: Comme nts: Fasting Lipid Profile Performed By: #### L 500.4050, L500.4100, L100.0100 ####[facility] [address] [place], [address] GFR/1.73 sq M.predicted among non-blacks MDRD (S/P/Bld) [Vol rate/Area] 30 mL/min/{1.73_m2} Low >60 [facility] Comment on above: Order Comment: Comme nts: Fasting Lipid Profile Result Comment: mL/m in/1.73m2 CKD-EPI Creatinine Equation (2020) Performed By: #### L 500.4050, L500.4100, L100.0100 ####[facility] [address] [place], [address] Globulin (S) [Mass/Vol] 2.6 g/dL Normal 2.2-4.2 [facility] Comment on above: Order Comment: Comme nts: Fasting Lipid Profile Performed By: #### L 500.4050, L500.4100, L100.0100 ####[facility] [address] [place], [address] Glucose [Mass/Vol] 103 mg/dL High 70-99 [facility] Comment on above: Order Comment: Comme nts: Fasting Lipid Profile Performed By: #### L 500.4050, L500.4100, L100.0100 ####[facility] [address] [place], [address] Potassium [Moles/Vol] 3.7 mmol/L Normal 3.3-5.1 [facility] Comment on above: Order Comment: Comme nts: Fasting Lipid Profile Performed By: #### L 500.4050, L500.4100, L100.0100 ####[facility] [address] [place], [address] Sodium [Moles/Vol] 136 mmol/L Normal 133-145 [facility] Comment on above: Order Comment: Comme nts: Fasting Lipid Profile Performed By: #### L 500.4050, L500.4100, L100.0100 ####[facility] [address] [place], [address] T PROT 5.9 g/dL Normal 5.9-8.4 [facility] Comment on above: Order Comment: Comme nts: Fasting Lipid Profile Performed By: #### L 500.4050, L500.4100, L100.0100 ####[facility] [address] [place], [address] Urea nitrogen [Mass/Vol] 27 mg/dL High 4-19 [facility] Comment on above: Order Comment: Comme nts: Fasting Lipid Profile Performed By: #### L 500.4050, L500.4100, L100.0100 ####[facility] [address] [place], [address] Echocardiogram study reportO rdered By: Fredis Marie on 10-12-2024 Study report [facility] [address] [place] [address] Echo Complete 10/12/24 0919 MR#: [id number] Acct: [id number] Name: REINIER ELIZABETH Rep #:[id number] : 1935 88 From: Fredis Cardozo Attending Dr: Dr. Nirav Cain MD Status: ADM IN Ordering Dr: Jake Kingston MD Date: 10/11/24 Location: U Sex: F C Admitted: 10/11/24 Reason For [...] Schuler Performed By: Denise Ron, PAVITHRA, RVT 10/12/24 1303 Date _ Fredis Marie MD CC: Dr. Anay Schuler MD; Dr. Jake Kingston MD; Dr. 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[facility] Work Phone: LDL calc ser/plasOrdered By: Inocencia Long on 10-12-2024 Cholesterol in LDL [Mass/Vol] 81 mg/dL [facility] Comment on above: Uxxbqiudvs=278-876 m g/dL & Higher Mstl=709 mg/dL or greater LDL Cholesterol, Calculated 81 mg/dL [facility] Comment on above: Aeahhmxgqb=448-348 m g/dL & Higher Whgr=666 mg/dL or greater Laboratory - Chemistry and C hemistry - challengeOrdered By: Inocencia Long on 10-12-2024 AST [Catalytic activity/Vol] 19 U/L <32 [facility] Lipid Profileon 10-12-2024 CHOL:HDL 3.02 Normal [facility] Comment on above: Order Comment: Comme nts: Fasting Lipid Profile Performed By: #### L 500.4050, L500.4100, L100.0100 ####[facility] [address] [place], [address] Cholesterol [Mass/Vol] 146 mg/dL Normal <=200 [facility] Comment on above: Order Comment: Comme nts: Fasting Lipid Profile Result Comment: Chol esterol level, Desirable <200 mg/dLBorderline high cholesterol 200-239 mg/dLHigh cholesterol >=240 mg/dLRecommendations of the NCEP Adult Treatment Panel for thefollowing risk-cutoff thresholds for the [place] Americanpopulation. Performed By: #### L 500.4050, L500.4100, L100.0100 ####[facility] [address] [place], [address] Cholesterol in HDL [Mass/Vol] 48 mg/dL Normal [facility] Comment on above: Order Comment: Comme nts: Fasting Lipid Profile Result Comment: Lita onal Cholesterol Education Program (NCEP) guidelines:<40 mg/dL: Low HDL-cholesterol (major risk factor for CHD)>= 60 mg/dL: High HDL-cholesterol (negative risk factor forCHD)HDL-cholesterol is affected by a number of factors, e.g.smoking, exercise, hormones, sex and age. Performed By: #### L 500.4050, L500.4100, L100.0100 ####[facility] [address] [place], [address] Cholesterol in LDL [Mass/Vol] 81 mg/dL Normal [facility] Comment on above: Order Comment: Comme nts: Fasting Lipid Profile Result Comment: Bord evqyvv=923-746 mg/dL Higher Qsea=989 mg/dL or greater Performed By: #### L 500.4050, L500.4100, L100.0100 ####[facility] [address] [place], [address] Cholesterol in VLDL [Mass/Vol] 17 mg/dL Normal 5-40 [facility] Comment on above: Order Comment: Comme nts: Fasting Lipid Profile Performed By: #### L 500.4050, L500.4100, L100.0100 ####[facility] [address] [place], [address] Triglyceride [Mass/Vol] 85 mg/dL Normal [facility] Comment on above: Order Comment: Comme nts: Fasting Lipid Profile Result Comment: The drugs N-Acetylcysteine and Metamizole may falselydepress this assay.Normal range: <150 mg/dLBorderline High: 150-199 mg/dLHigh: 200-499 mg/dLVery High: >500 mg/dL Performed By: #### L 500.4050, L500.4100, L100.0100 ####[facility] [address] [place], [address] No Panel InformationOrdered By: Inocencia Ethan on 10-12-2024 19 U/L <32 [facility] Screening total cholesterol/ high density lipoprotein (HDL) cholesterol ratioOrdered By: Inocencia Ethan 10-12-2024 Cholesterol.total/Choles terol in HDL [Mass ratio] 3.02 {ratio} [facility] Serum globulin measurementOr dered By: Inocencia Long 10-12-2024 Globulin (S) [Mass/Vol] 2.6 g/dL 2.2-4.2 [facility] Serum or plasma alanine king otransferase (ALT) measurementOrdered By: Inocencia Long 10-12-2024 ALT [Catalytic activity/Vol] 13 U/L <35 [facility] Serum or plasma albumin dex urement (mass/volume)Ordered By: Inocencia Ethan 10-12-2024 Albumin [Mass/Vol] 3.4 g/dL 3.4-4.8 [facility] Serum or plasma albumin/glob ulin mass ratioOrdered By: [facility] Ethan 10-12-2024 Albumin/Globulin [Mass ratio] 1.3 {ratio} 0.9-2.4 [facility] Serum or plasma alkaline carlie sphatase measurementOrdered By: Inocencia Ethan 10-12-2024 ALP [Catalytic activity/Vol] 38 U/L 35-104 [facility] Serum or plasma cholesterol in HDL measurement (mass/volume)Ordered By: [facility] Ethan 10-12-2024 Cholesterol in HDL [Mass/Vol] 48 mg/dL >40 [facility] Comment on above: National Cholesterol Education Program (NCEP) guidelines:<40 mg/dL: Low HDL-cholesterol (major risk factor for CHD)>= 60 mg/dL: High HDL-cholesterol (negative risk factor for CHD)HDL-cholesterol is affected by a number of factors, e.g. smoking, exercise, hormones, sex and age. Serum or plasma cholesterol measurement (mass/volume)Ordered By: Inocencia Long on 10-12-2024 Cholesterol [Mass/Vol] 146 mg/dL <201 [facility] Comment on above: Cholesterol level, D esirable <200 mg/dLBorderline high cholesterol 200-239 mg/dLHigh cholesterol >=240 mg/dLRecommendations of the NCEP Adult Treatment Panel for the following risk-cutoff thresholds for the [place] population. Total proteinOrdered By: Pj Long on 10-12-2024 Protein [Mass/Vol] 5.9 g/dL 5.9-8.4 [facility] Triglycerides measurementOrd ered By: Inocencia Long on 10-12-2024 Triglyceride [Mass/Vol] 85 mg/dL <199 [facility] Comment on above: The drugs N-Acetylcy steine and Metamizole may falsely depress this assay. Normal range: <150 mg/dLBorderline High: 150-199 mg/dLHigh: 200-499 mg/dLVery High: >500 mg/dL 12 Lead EKGon 10-11-2024 12 Lead EKG Normal [facility] 12 Lead EKG Normal [facility] Absolute neutrophil countOrd ered By: ED PROVIDER on 10-11-2024 Neutrophils (Bld) [#/Vol] 4.8 10*3/uL 2.0-7.7 [facility] Anion gap in Serum or Plasma Ordered By: Vincent Chan on 10-11-2024 Anion gap [Moles/Vol] 12 mmol/L 11-10 [facility] BUN/creatinine ratioOrdered By: Vincent Chan on 10-11-2024 Urea nitrogen/Creatinine [Mass ratio] 16.2 mg/mg - [facility] Basic Metabolic Profile (BMP )on 10-11-2024 BUN/CRE 16.2 RATIO Normal 04-17 [facility] Comment on above: Performed By: #### L 100.0100, L500.2500, L501.4021, L300.3900, L501.9520 ####[facility] [address] [place], [address] Calcium [Mass/Vol] 8.9 mg/dL Normal 7.6-11.0 [facility] Comment on above: Performed By: #### L 100.0100, L500.2500, L501.4021, L300.3900, L501.9520 ####[facility] [address] [place], [address] Chloride [Moles/Vol] 105 mmol/L Normal 98-108 [facility] Comment on above: Performed By: #### L 100.0100, L500.2500, L501.4021, L300.3900, L501.9520 ####[facility] [address] [place], [address] CO2 [Moles/Vol] 17.4 mmol/L Low 21.0-32.0 [facility] Comment on above: Performed By: #### L 100.0100, L500.2500, L501.4021, L300.3900, L501.9520 ####[facility] [address] [place], [address] Creatinine [Mass/Vol] 1.70 mg/dL High 0.70-1.20 [facility] Comment on above: Performed By: #### L 100.0100, L500.2500, L501.4021, L300.3900, L501.9520 ####[facility] [address] [place], [address] ECRCL 20.52 ml/min Low 50-250 [facility] Comment on above: Performed By: #### L 100.0100, L500.2500, L501.4021, L300.3900, L501.9520 ####[facility] [address] [place], [address] GAP 12 Normal 5-15 [facility] Comment on above: Performed By: #### L 100.0100, L500.2500, L501.4021, L300.3900, L501.9520 ####[facility] [address], [address] GFR/1.73 sq M.predicted among non-blacks MDRD (S/P/Bld) [Vol rate/Area] 29 mL/min/{1.73_m2} Low >60 [facility] Comment on above: Result Comment: mL/m in/1.73m2 CKD-EPI Creatinine Equation (2020) Performed By: #### L 100.0100, L500.2500, L501.4021, L300.3900, L501.9520 ####[facility] [address] [place], [address] Glucose [Mass/Vol] 117 mg/dL High 70-99 [facility] Comment on above: Performed By: #### L 100.0100, L500.2500, L501.4021, L300.3900, L501.9520 ####[facility] [address] [place], [address] Potassium [Moles/Vol] 4.1 mmol/L Normal 3.3-5.1 [facility] Comment on above: Performed By: #### L 100.0100, L500.2500, L501.4021, L300.3900, L501.9520 ####[facility] [address] [place], [address] Sodium [Moles/Vol] 134 mmol/L Normal 133-145 [facility] Comment on above: Performed By: #### L 100.0100, L500.2500, L501.4021, L300.3900, L501.9520 ####[facility] [address] [place], [address] Urea nitrogen [Mass/Vol] 28 mg/dL High 4-19 [facility] Comment on above: Performed By: #### L 100.0100, L500.2500, L501.4021, L300.3900, L501.9520 ####[facility] [address] [place], [address] Basophil percentageOrdered B y: ED PROVIDER on 10-11-2024 Basophils/100 WBC (Bld) 0.4 % 0-1 [facility] Bilirubin Test strip Ql (U)O rdered By: Brigido Alejandre on 10-11-2024 Bilirubin Ql (U) Negative Negative [facility] CBC W/Diff, Automatedon 09-27 Absolute Lymph 1.04 X10 3/uL Normal 0.83-4.51 [facility] Comment on above: Performed By: #### L 100.0100, L500.2500, L501.4021, L300.3900, L501.9520 ####[facility] [address] [place], [address] Absolute Neut 4.8 X10 3/uL Normal 2.0-7.7 [facility] Comment on above: Performed By: #### L 100.0100, L500.2500, L501.4021, L300.3900, L501.9520 ####[facility] [address] [place], [address] Basophils/100 WBC (Bld) 0.4 % Normal 0-1 [facility] Comment on above: Performed By: #### L 100.0100, L500.2500, L501.4021, L300.3900, L501.9520 ####[facility] [address] [place], [address] Eosinophils/100 WBC (Bld) 3.7 % Normal 0-5 [facility] Comment on above: Performed By: #### L 100.0100, L500.2500, L501.4021, L300.3900, L501.9520 ####[facility] [address] [place], [address] Erythrocyte distribution width (RBC) [Ratio] 13.1 % Normal 11.6-14.6 [facility] Comment on above: Performed By: #### L 100.0100, L500.2500, L501.4021, L300.3900, L501.9520 ####[facility] [address] [place], [address] Hematocrit (Bld) [Volume fraction] 31.6 % Low 37-47 [facility] Comment on above: Performed By: #### L 100.0100, L500.2500, L501.4021, L300.3900, L501.9520 ####[facility] [address] [place], [address] Hemoglobin (Bld) [Mass/Vol] 10.7 g/dL Low 12.0-15.0 [facility] Comment on above: Performed By: #### L 100.0100, L500.2500, L501.4021, L300.3900, L501.9520 ####[facility] [address] [place], [address] IG% 0.300 Normal 0.0-0.9 [facility] Comment on above: Result Comment: IG% - Immature Granulocytes (promyelocytes, myelocytes andmetamyelocytes) > 1% indicates that a LEFT SHIFT is Present. Performed By: #### L 100.0100, L500.2500, L501.4021, L300.3900, L501.9520 ####[facility] [address] [place], [address] Lymphocytes/100 WBC (Bld) 15.2 % Low 19-41 [facility] Comment on above: Performed By: #### L 100.0100, L500.2500, L501.4021, L300.3900, L501.9520 ####[facility] [address] [place], [address] MCH (RBC) [Entitic mass] 32.3 pg High 27.0-32.0 [facility] Comment on above: Performed By: #### L 100.0100, L500.2500, L501.4021, L300.3900, L501.9520 ####[facility] [address] [place], [address] MCHC (RBC) [Mass/Vol] 33.9 g/dL Normal 32-36 [facility] Comment on above: Performed By: #### L 100.0100, L500.2500, L501.4021, L300.3900, L501.9520 ####[facility] [address] [place], [address] MCV (RBC) [Entitic vol] 95.5 fL Normal 81-99 [facility] Comment on above: Performed By: #### L 100.0100, L500.2500, L501.4021, L300.3900, L501.9520 ####[facility] [address] [place], [address] Monocytes/100 WBC (Bld) 9.6 % Normal 0-10 [facility] Comment on above: Performed By: #### L 100.0100, L500.2500, L501.4021, L300.3900, L501.9520 ####[facility] [address] [place], [address] Neutrophils/100 WBC (Bld) 70.8 % High 47-70 [facility] Comment on above: Performed By: #### L 100.0100, L500.2500, L501.4021, L300.3900, L501.9520 ####[facility] [address] [place], [address] Nucleated RBC (Bld) [#/Vol] 0 10*3/uL Normal 0-5 [facility] Comment on above: Performed By: #### L 100.0100, L500.2500, L501.4021, L300.3900, L501.9520 ####[facility] [address] [place], [address] Platelet mean volume (Bld) [Entitic vol] 10.2 fL Normal 6.2-12.0 [facility] Comment on above: Performed By: #### L 100.0100, L500.2500, L501.4021, L300.3900, L501.9520 ####[facility] [address] [place], [address] Platelets (Bld) [#/Vol] 199 10*3/uL Normal 150-450 [facility] Comment on above: Performed By: #### L 100.0100, L500.2500, L501.4021, L300.3900, L501.9520 ####[facility] [address] [place], [address] RBC (Bld) [#/Vol] 3.31 10*6/uL Low 4.2-5.4 [facility] Comment on above: Performed By: #### L 100.0100, L500.2500, L501.4021, L300.3900, L501.9520 ####[facility] [address] [place], [address] RDW SD 45.2 fl High 35.1-43.9 [facility] Comment on above: Performed By: #### L 100.0100, L500.2500, L501.4021, L300.3900, L501.9520 ####[facility] [address] [place], [address] WBC (Bld) [#/Vol] 6.8 10*3/uL Normal 4.4-11.0 [facility] Comment on above: Performed By: #### L 100.0100, L500.2500, L501.4021, L300.3900, L501.9520 ####[facility] [address] [place], [address] Carbon dioxide, total [Moles /volume] in Central venous bloodOrdered By: Vincent Chan on 10-11-2024 CO2 [Moles/Vol] 17.4 mmol/L Low 21.0-32.0 [facility] Chest 1 View (Portable)on Chest 1 View (Portable) Normal [facility] Chloride assayOrdered By: Lucie Chan on 10-11-2024 Chloride [Moles/Vol] 105 mmol/L 98-108 [facility] Consultation - Cardiologyon 10-11-2024 Consultation - Cardiology Normal [facility] Echo Completeon 10-11-2024 Echo Complete Normal [facility] Emergency Department Summary on 10-11-2024 Emergency Department Summary Normal [facility] Eosinophil percentageOrdered By: ED PROVIDER on 10-11-2024 Eosinophils/100 WBC (Bld) 3.7 % 0-5 [facility] Epithelial cells.squamous LM Ql (Urine sed)Ordered By: Brigido Alejandre on 10-11-2024 Epithelial cells.squamous LM.HPF (Urine sed) [#/Area] 0 /[HPF] 5-10 [facility] Erythrocyte distribution wid th (RBC) [Ratio]Ordered By: ED PROVIDER on 10-11-2024 Erythrocyte distribution width (RBC) [Entitic vol] 45.2 fL High 35.1-43.9 [facility] Erythrocyte distribution wid th ratioOrdered By: ED PROVIDER on 10-11-2024 Erythrocyte distribution width (RBC) [Ratio] 13.1 % 11.6-14.6 [facility] Estimation of creatinine asael aranceOrdered By: Vincent Chan on 10-11-2024 Estimated Creatinine Clearance Calc 20.52 ml/min Low 50-250 [facility] GFR/1.73 sq M.predicted jennifer g non-blacks MDRD (S/P/Bld) [Vol rate/Area]Ordered By: Vincent Chan on 10-11-2024 Estimated GFR (MDRD) Non-Af Amer 29 Low >60 [facility] Comment on above: mL/min/1.73m2 CKD-EP I Creatinine Equation (2020) Glucose Ql (U)Ordered By: Dony Alejandre on 10-11-2024 Urine Glucose (UA) Normal mg/dl Normal [facility] H AND P Exam - Hospitaliston 10-11-2024 H&P Exam - Hospitalist Normal [facility] [facility] Hematocrit Auto (Bld) [Volum e fraction]Ordered By: ED PROVIDER on 10-11-2024 Hematocrit (Bld) [Volume fraction] 31.6 % Low 37-47 [facility] Hemoglobin measurementOrdere d By: ED PROVIDER on 10-11-2024 Hemoglobin (Bld) [Mass/Vol] 10.7 g/dL Low 12.0-15.0 [facility] Immature granulocytes/100 WB C Auto (Bld)Ordered By: ED PROVIDER on 10-11-2024 Immature granulocytes/100 WBC (Bld) 0.300 % 0.0-0.9 [facility] Comment on above: IG% - Immature Granu locytes (promyelocytes, myelocytes and metamyelocytes) > 1% indicates that a LEFT SHIFT is Present. Influenza virus A and B and SARS-CoV-2 (COVID-19) and Respiratory syncytial virus RNAOrdered By: Brigido Alejandre on 10-11-2024 SARS-CoV-2 (COVID-19) RNA GUERA+probe Ql (Unsp spec) [facility] International normalized rat io (INR) calculationOrdered By: Vincent Chan on 10-11-2024 INR Coag (Bld) [Relative time] 1.7 {INR} [facility] Ketones Test strip Ql (U)Ord ered By: Brigido Alejandre on 10-11-2024 Ketones Ql (U) Negative Negative [facility] L499.0042on 10-11-2024 Trop T High Sen 99 ng/L Invalid Interpretation Code <=14 [facility] Comment on above: Result Comment: Crit ical Result(s) [facility] at: 1544 by:AMY??Results read back by same. Performed By: #### L 499.0042 ####[facility] [address] [place], [address] L499.0043on 10-11-2024 Trop T High Sen Normal <=14 [facility] Comment on above: Result Comment: OK T O CANCEL PER Roslyn ARECHIGA Performed By: #### L 499.0043 ####[facility] [address] [place], [address] L501.4021on 10-11-2024 Trop T High Sen 82 ng/L Invalid Interpretation Code <=14 [facility] Comment on above: Result Comment: Crit ical Result(s) Called at 1236: by: DAHLIA WALTER. ??Results read back by same. Performed By: #### L 100.0100, L500.2500, L501.4021, L300.3900, L501.9520 ####[facility] [address] [place], [address] Lymphocytes Auto (Unsp spec) [#/Vol]Ordered By: ED PROVIDER on 10-11-2024 Lymphocytes (Bld) [#/Vol] 1.04 10*3/uL 0.83-4.51 [facility] Lymphocytes/100 WBC Auto (Un sp spec)Ordered By: ED PROVIDER on 10-11-2024 Lymphocytes/100 WBC (Bld) 15.2 % Low 19-41 [facility] M100.678on 10-11-2024 M100.678 Pending SARS-CoV-2 (COVID 19) Negative INFLUENZA A Negative INFLUENZA B Negative RSV PCR Negative Normal [facility] Comment on above: Performed By: #### M 100.678 ####[facility] [address] [place], [address] MCV (mean corpuscular volume ) determinationOrdered By: ED PROVIDER on 10-11-2024 MCV (RBC) [Entitic vol] 95.5 fL 81-99 [facility] Magnesiumon 10-11-2024 Magnesium [Mass/Vol] 1.7 mg/dL Normal 1.5-2.2 [facility] Comment on above: Order Comment: Comme nts: may add to ED labs Performed By: #### L 501.5200 ####[facility] [address] [place], [address] Magnesium (Unsp spec) [Mass/ Vol]Ordered By: Inocencia Long on 10-11-2024 Magnesium [Mass/Vol] 1.7 mg/dL 1.5-2.2 [facility] Magnesium measurement (mass/ volume)Ordered By: Inocencia Long on 10-11-2024 Magnesium (Unsp spec) [Mass/Vol] 1.7 mg/dL 1.5-2.2 [facility] Mean corpuscular hemoglobin (MCH) determinationOrdered By: ED PROVIDER on 10-11-2024 MCH (RBC) [Entitic mass] 32.3 pg High 27.0-32.0 [facility] Mean corpuscular hemoglobin concentration (MCHC) determinationOrdered By: ED PROVIDER on 10-11-2024 MCHC (RBC) [Mass/Vol] 33.9 g/dL 32-36 [facility] Mean platelet volume determi nationOrdered By: ED PROVIDER on 10-11-2024 Platelet mean volume (Bld) [Entitic vol] 10.2 fL 6.2-12.0 [facility] Microscopic analysis of urin e for red blood cells (RBC)Ordered By: Brigido Alejandre on 10-11-2024 Microscopic analysis of urine for red blood cells (RBC) 0 SEEN /hpf 0-5 [facility] Urine RBC 0 SEEN /hpf 0-5 [facility] Monocyte percentageOrdered B y: ED PROVIDER on 10-11-2024 Monocytes/100 WBC (Bld) 9.6 % 0-10 [facility] Mucus LM Ql (Urine sed)Order ed By: Brigido Alejandre on 10-11-2024 Mucus Ql (Urine sed) 0 SEEN /hpf [facility] Neutrophil percentageOrdered By: ED PROVIDER on 10-11-2024 Neutrophils/100 WBC (Bld) 70.8 % High 47-70 [facility] Nitrite Test strip Ql (U)Ord ered By: Brigido Alejandre on 10-11-2024 Nitrite Ql (U) Negative Negative [facility] Nucleated red blood cell per centageOrdered By: ED PROVIDER on 10-11-2024 Nucleated RBC/100 WBC (Bld) [Ratio] 0 % 0-5 [facility] Platelet countOrdered By: ED PROVIDER on 10-11-2024 Platelets (Bld) [#/Vol] 199 10*3/uL 150-450 [facility] Potassium (Unsp spec) [Mass/ Vol]Ordered By: Vincent Chan on 10-11-2024 Potassium [Moles/Vol] 4.1 mmol/L 3.3-5.1 [facility] Protein Test strip Ql (U)Ord ered By: Brigido Alejandre on 10-11-2024 Protein Ql (U) 30 mg/dl High Negative [facility] Prothrombin Time w/INRon INR Coag (PPP) [Relative time] 1.7 {INR} Normal [facility] Comment on above: Performed By: #### L 100.0100, L500.2500, L501.4021, L300.3900, L501.9520 ####[facility] [address] [place], [address] PT Coag (PPP) [Time] 20.7 s High 11.7-14.9 [facility] Comment on above: Performed By: #### L 100.0100, L500.2500, L501.4021, L300.3900, L501.9520 ####[facility] [address] [place], [address] Prothrombin timeOrdered By: Vincent Chan on 10-11-2024 PT Coag (PPP) [Time] 20.7 s High 11.7-14.9 [facility] RBC Auto (Bld) [#/Vol]Ordere d By: ED PROVIDER on 10-11-2024 RBC (Bld) [#/Vol] 3.31 10*6/uL Low 4.2-5.4 [facility] Serum creatinine measurement (mass/volume)Ordered By: Vincent Chan on 10-11-2024 Creatinine [Mass/Vol] 1.70 mg/dL High 0.70-1.20 [facility] Serum glucose measurement (m ass/volume)Ordered By: Vincent Chan on 10-11-2024 Glucose [Mass/Vol] 117 mg/dL High 70-99 [facility] Serum or plasma calcium dex urement (mass/volume)Ordered By: Vincent Chan on 10-11-2024 Calcium [Mass/Vol] 8.9 mg/dL 7.6-11.0 [facility] Serum or plasma urea nitroge n measurement (mass/volume)Ordered By: Vincent Chan on 10-11-2024 Urea nitrogen [Mass/Vol] 28 mg/dL High 4-19 [facility] Sodium levelOrdered By: Dyllan Chan on 10-11-2024 Sodium [Moles/Vol] 134 mmol/L 133-145 [facility] Squamous epithelial cells de tection in urine sediment by light microscopyOrdered By: Brigido Alejandre on 10-11-2024 Epithelial cells.squamous LM Ql (Urine sed) 0-5 SEEN /hpf 5-10 [facility] TSH DL <= 0.005 mIU/L QnOrde red By: Brigido Alejandre on 10-11-2024 Thyroid Stimulating Hormone (TSH) 2.150 uIU/mL 0.300-4.200 [facility] TSH Qn 2.150 uIU/mL 0.300-4.200 [facility] Thyroid Stim Hormone (TSH)on 10-11-2024 TSH 2.150 uIU/mL Normal 0.300-4.200 [facility] Comment on above: Performed By: #### L 100.0100, L500.2500, L501.4021, L300.3900, L501.9520 ####[facility] [address] [place], [place], [address] Troponin T.cardiac High sens itivity method [Mass/Vol]Ordered By: Vincent Chan on 10-11-2024 Troponin T High Sensitivity 2 Hour 99 ng/L High <14 [facility] Comment on above: Critical Result(s) C alledaniel PIERRE at: 1544 by: AMY Results read back by same. Troponin T High Sensitivity 82 ng/L High <14 [facility] Comment on above: Critical Result(s) C alled at 1236: by: DAHLIA RAMIREZ TO GABBY. Results read back by same. Troponin T.cardiac [Mass/vol ume] in Serum or Plasma by High sensitivity methodOrdered By: Vincent Chan on 10-11-2024 Troponin T.cardiac High sensitivity method [Mass/Vol] 99 ng/L High <14 [facility] Comment on above: Critical Result(s) C taj LEV at: 1544 by: AMY Results read back by same. Troponin T.cardiac High sensitivity method [Mass/Vol] 82 ng/L High <14 [facility] Comment on above: Critical Result(s) C taj at 1236: by: DAHLIA RAMIREZ TO GABBY. Results read back by same. Urinalysis, Completeon 10-11 EPI,SQUAMOUS 0-5 SEEN Normal 5-10 [facility] Comment on above: Order Comment: QUOC CTOR TO SPECIFY Performed By: #### L 400.0001 ####[facility] [address] [place], [address] BACTERIA 0 SEEN Normal None Seen [facility] Comment on above: Order Comment: QUOC CTOR TO SPECIFY Performed By: #### L 400.0001 ####[facility] [address] [place], [address] Mucus Ql (Urine sed) 0 SEEN Normal [facility] Comment on above: Order Comment: QUOC CTOR TO SPECIFY Performed By: #### L 400.0001 ####[facility] [address] [place], [address] RBC 0 SEEN Normal 0-5 [facility] Comment on above: Order Comment: QUOC CTOR TO SPECIFY Performed By: #### L 400.0001 ####[facility] [address] [place], [address] WBC 0 SEEN Normal 0-5 [facility] Comment on above: Order Comment: QUOC CTOR TO SPECIFY Performed By: #### L 400.0001 ####[facility] [address] [place], [address] Urine blood detectionOrdered By: Brigido Alejandre on 10-11-2024 Urine Occult Blood Negative Negative [facility] Urine clarityOrdered By: Alicia Alejandre on 10-11-2024 Clarity (U) Sl. Cloudy Clear [facility] Urine color determinationOrd ered By: Brigido Alejandre on 10-11-2024 Color (U) Yellow Yellow [facility] Urine glucose detectionOrder ed By: Brigido Alejandre on 10-11-2024 Glucose Ql (U) Normal mg/dl Normal [facility] Urine leukocyte esterase det ection by dipstickOrdered By: Brigido Alejandre on 10-11-2024 Leukocyte esterase Test strip Ql (U) Negative Negative [facility] Urine pHOrdered By: Brigido frost on 10-11-2024 pH (U) 6.0 [pH] 5.0 - 8.0 [facility] Urine sediment bacteria coun t by microscopy (number/high power field)Ordered By: Brigido Alejandre on 10-11-2024 Bacteria LM.HPF (Urine sed) [#/Area] 0 /[HPF] None Seen [facility] Urine specific gravity measu rementOrdered By: Brigido Alejandre on 10-11-2024 Specific gravity (U) [Rel density] 1.015 1.002-1.030 [facility] Urine urobilinogen measureme ntOrdered By: Brigido Alejandre on 10-11-2024 Urobilinogen Ql (U) Normal mg/dl Normal [facility] Urobilinogen Ql (U)Ordered B y: Brigido Alejandre on 10-11-2024 Urine Urobilinogen Normal mg/dl Normal [facility] White blood cell (WBC) count Ordered By: ED PROVIDER on 10-11-2024 WBC (Bld) [#/Vol] 6.8 10*3/uL 4.4-11.0 [facility] White blood cell countOrdere d By: Brigido Alejandre on 10-11-2024 Urine WBC 0 SEEN /hpf 0-5 [facility] White blood cell count 0 SEEN /hpf 0-5 [facility] Bacteria Ur Culton Bacteria identified Cx Nom (U) ORGANISM ID: 1 <10,000 CFU/ml Lactose negative gram negative bacilli Insignificant colony count. No further workup. Normal [facility] Comment on above: Performed By: #### 6 30-4 ####[facility] [id number] [place] [address] [address] [place] CNOVon 10-08-2024 CNOV Office Visit (UCWSTR) REINIER ELIZABETH ([id number]) 1935 F NFR Date Time Provider Department 10/08/24 11:45 AM MICHAEL SULLIVAN UCWSTR During your visit today, we recorded the following information about you: Temperature Pulse Respiration Blood pressure 99.2 degrees 62/minute 16/minute 132/72 Weight 64.5 kg Michael Sullivan, DAVID.INJECTOR ASSEMBLER 10/08/2024 1:07 PM Signed [facility] [...] (age, bleeding) - At risk for stroke [id number] = 4 (HTN, age2, female gender) - [...] Glaucoma - right eye left eye - [facility] . Dr Gao - REPAIR FIRST [...] mouth twice daily. - Spirometers and Accessories magdalnea Use 3 times a day, each time [...] ANGELO COMPRESSION (more content not included)... Normal [facility] UA DIP, URINE (POC)on 2024 BILIRUBIN UA (POCT) Negative Negative [facility] CLARITY UA (POCT) Clear [facility] COLOR UA (POCT) Yellow [facility] GLUCOSE UA (POCT) Negative Negative mg/dL [facility] Hemoglobin Ql (U) Negative Negative [facility] Interpretation and review of laboratory results Abnormal [facility] KETONE UA (POCT) Negative Negative mg/dL [facility] LEUKOCYTES UA (POCT) Negative [facility] NITRITE UA (POCT) Negative Negative [facility] PH UA (POCT) 6 4.5 - 8.0 [facility] Protein Ql (U) 30 mg/dL Abnormal Negative [facility] SPECIFIC GRAVITY UA (POCT) 1.02 1.005 - 1.030 [facility] UROBILINOGEN UA (POCT) 0.2 Michelle l E.U./dL [facility] Location: [place], [address] [facility], [place], [address] [facility] POINT [facility] CARE [facility] CNPNon 10-07-2024 CNPN Telephone (COUMWS) ELIZABETHREINIER LOPEZ ([id number]) 1935 F NFR Date Time Provider Department 10/07/24 ANAY SCHULER During your visit today, we recorded the following information about you: Faustina Hoskins, RN 10/07/2024 12:57 PM Signed patients daughter is [...] daughter Murtaza needs called back with information Anay Schuler [...] 7 days. Authorizing Provider: ANAY SCHULER Samina eGrmain notified. Yany Nieto MA Allergies As of [...] IF UNABLE, PLEASE REFER TO [facility]. DX: EDEMA - latanoprost (XALATAN) 0.005 % [...] [E55.9] 12 (more content not included)... Normal [facility] Ranjith 09-27-2024 CNPN Telephone (INTMWS) REINIER ELIZABETH ([id number]) 1935 F NFR Date Time Provider Department 09/27/24 ANAY SCUHLER During your visit today, we recorded the following information about you: Yolette Pérez RN 09/27/2024 10:37 AM Signed Patient's daughter [...] IF UNABLE, PLEASE REFER TO [facility]. DX: EDEMA - latanoprost (XALATAN) 0.005 % [...] urination [R39.15 (more content not included)... Normal [facility] Bacteria Ur Culton 5 Bacteria identified Cx Nom (U) ORGANISM ID: [...] , Intermediate >32 , Resistant >64 Abnormal [facility] Comment on above: Performed By: #### 5 7021-8 #### [facility] CLIA [id number] [address] [place] [address] [place] CNOVon 09-26-2024 CNOV Office Visit (INTMWS) REINIER ELIZABETH ([id number]) 1935 F NFR Date Time Provider Department 09/26/24 1:40 PM SILVIO DRAKE During your visit today, we recorded the following information about you: Temperature Pulse Respiration Blood pressure 97.1 degrees 60/minute 16/minute 138/82 Weight 63.5 kg OlderSilvio APRN.CNP 09/26/2024 2:11 PM Signed CC: Patient presents [...] 2 (age, bleeding) At risk for stroke [id number] = 4 (HTN, age2, female gender) Benign [...] May. right eye Jun. left eye - [facility] . Dr Gao REPAIR FIRST ABDOMINAL [...] IF UNABLE, PLEASE REFER TO [facility]. DX: EDEMA latanoprost (XALATAN) 0.005 % ophthalmic solution 1 Drop daily at bedtime. TRAVATAN Z 0.004 % Drop daily at bedtime. Cholecalciferol, Vi (more content not included)... Normal [facility] UA DIP, URINE (POC)on 2024 BILIRUBIN UA (POCT) Negative Negative [facility] CLARITY UA (POCT) Clear [facility] COLOR UA (POCT) Yellow [facility] GLUCOSE UA (POCT) Negative Negative mg/dL [facility] Hemoglobin Ql (U) Trace-intact Abnormal Negative [facility] Interpretation and review of laboratory results Abnormal [facility] KETONE UA (POCT) Negative Negative mg/dL [facility] LEUKOCYTES UA (POCT) Moderate Abnormal Negative [facility] NITRITE UA (POCT) Negative Negative [facility] PH UA (POCT) 5.5 4.5 - 8.0 [facility] Protein Ql (U) 30 mg/dL Abnormal Negative [facility] SPECIFIC GRAVITY UA (POCT) 1.02 1.005 - 1.030 [facility] UROBILINOGEN UA (POCT) 0.2 Michelle l E.U./dL [facility] Location:[facility], [address] [place] [address] Rd, [place], [address] [facility] POINT [facility] CARE [facility] ALDOSTERONE/DIRECT RENIN RAT IOon 09-12-2024 STEVEN RENIN RATIO 5.5 High <3.8 [facility] Comment on above: Order Comment: Speci men Type: BLOOD SPECIMEN Ordering Facility: [facility] Address: [address] [address] [facility] [place] [address] Result Comment: A ra mary ellen of aldosterone in ng/dL to direct renin in pg/mL greater than or equal to 3.8 is a positive screening test result for primary aldosteronism, when aldosterone is greater than or equal to 15 ng/dL. Performed By: #### A LDREN #### [facility] CLIA [id number] [address] [place] [address] [place] Aldosterone [Mass/Vol] 13.7 ng/dL Normal 0.0-<35.4 [facility] Comment on above: Order Comment: Claudia vilchis Type: BLOOD SPECIMEN Ordering Facility: [facility] Address: [address] [place] [address] Result Comment: The reference interval for serum/plasma [...] ng/dL. Performed By: #### A LDREN #### [facility] CLIA [id number] [address] [place] [address] [place] DIRECT RENIN 2.5 pg/mL Low 3.6-81.6 [facility] Comment on above: Order Comment: Claudia vilchis Type: BLOOD SPECIMEN Ordering Facility: [facility] Address: [address] [place] [address] Result Comment: The reference interval for direct [...] ng/dL. Performed By: #### A LDREN #### [facility] CLIA [id number] [address] [place] PATIENT UPRIGHT OR SUPINE Upright Normal [facility] Comment on above: Order Comment: Speci men Type: BLOOD SPECIMEN Ordering Facility: [facility] Address: [address] [place] [address] Performed By: #### A SEAN #### [facility] CLIA [id number] [address] [place] [address] Performed By: #### 2 4328, 2132-02 #### [facility] CLIA [id number] [address] [place] [address] [place] Aldost SerPl-ncon 09-13-19 25 Aldosterone [Mass/Vol] 13.5 ng/dL Normal 0.0-<35.4 [facility] Comment on above: Order Comment: Speci men Type: BLOOD SPECIMEN Ordering Facility: [facility] Address: [address] [place] [address] Result Comment: The reference interval for serum/plasma [...] to 15 ng/dL. Performed By: #### 2 4328, 2132-02 #### [facility] CLIA [id number] [address] [place] [address] [place] Basic metabolic 2000 panelon 09-12-2024 Anion gap [Moles/Vol] 12 mmol/L Normal 8-15 [facility] Comment on above: Order Comment: Speci men Type: BLOOD SPECIMEN Ordering Facility: [facility] Address: [address] [place] [address] Performed By: #### 2 43238, 2132-02 #### [facility] CLIA [id number] [address] [place], [place] [id number] [place] Calcium [Mass/Vol] 9.3 mg/dL Normal 8.5-10.2 [facility] Comment on above: Order Comment: Speci men Type: BLOOD SPECIMEN Ordering Facility: [facility] Address: [address] [place] [address] Performed By: #### 2 4328, 2132-02 #### [facility] CLIA [id number] [address] [place] [address] [place] Chloride [Moles/Vol] 106 mmol/L Normal 98-107 [facility] Comment on above: Order Comment: Speci men Type: BLOOD SPECIMEN Ordering Facility: [facility] Address: [address] [place] [address] Performed By: #### 2 4328, 2132-02 #### [facility] CLIA [id number] [address] [place] [address] [place] CO2 [Moles/Vol] 21 mmol/L Low 22-30 [facility] Comment on above: Order Comment: Speci men Type: BLOOD SPECIMEN Ordering Facility: [facility] Address: [address] [place] [address] Performed By: #### 2 4328, 2132-02 #### [facility] CLIA [id number] [address] [place] [address] [place] Creatinine [Mass/Vol] 1.42 mg/dL High 0.58-0.96 [facility] Comment on above: Order Comment: Speci men Type: BLOOD SPECIMEN Ordering Facility: [facility] Address: [address] [place] [address] Performed By: #### 2 43209-03, 2132-02 #### [facility] CLIA [id number] [address] [place] [address] [place] Creatinine and Glomerular filtration rate.predicted panel (S/P/Bld) 36 mL/min/1.73m??? Low >=60 [facility] Comment on above: Order Comment: Claudia vilchis Type: BLOOD SPECIMEN Ordering Facility: [facility] Address: [address] [place] [address] Result Comment: Lien mated Glomerular Filtration Rate [...] reflect actual GFR. Performed By: #### 2 4323-8, 2132-02 #### [facility] CLIA [id number] [address] [place] [address] [place] Glucose [Mass/Vol] 106 mg/dL High 74-99 [facility] Comment on above: Order Comment: Claudia vilchis Type: BLOOD SPECIMEN Ordering Facility: [facility] Address: [address] [place] [address] Result Comment: The [place] [employer] (ADA) provides guidance for cutoff [...] Standards of Medical Care in Diabetes 2016, [place] [employer]. Diabetes Care. 2016.39(Suppl 1). Performed By: #### 2 4323-8, 2132-02 #### [facility] CLIA [id number] [address] [place] [address] [place] Potassium [Moles/Vol] 4.1 mmol/L Normal 3.7-5.1 [facility] Comment on above: Order Comment: Speci men Type: BLOOD SPECIMEN Ordering Facility: [facility] Address: [address] [place] [address] Performed By: #### 2 4323-8, 2132-02 #### [facility] CLIA [id number] [address] [place] [address] [place] Sodium [Moles/Vol] 139 mmol/L Normal 136-144 [facility] Comment on above: Order Comment: Speci men Type: BLOOD SPECIMEN Ordering Facility: [facility] Address: [address] [place] [address] Performed By: #### 2 4328, 2132-02 #### [facility] CLIA [id number] [address] [place] [address] [place] Urea nitrogen [Mass/Vol] 28 mg/dL High 7-21 [facility] Comment on above: Order Comment: Speci men Type: BLOOD SPECIMEN Ordering Facility: [facility] Address: [address] [place] [address] Performed By: #### 2 4323-8, 2132-02 #### [facility] CLIA [id number] [address] [place] [address] [place] DIRECT RENIN PLASMAon 2024 DIRECT RENIN 2.6 pg/mL Low 3.6-81.6 [facility] Comment on above: Order Comment: Speci men Type: BLOOD SPECIMEN Ordering Facility: [facility] Address: [address] [place] [address] Result Comment: A ra mary ellen of [...] Performed By: #### 2 4323-8, 2132-02 #### [facility] CLIA [id number] [address] [place], [place] [id number] [place] Magnesium SerPl-mCncon 09-12 Magnesium [Mass/Vol] 2.0 mg/dL Normal 1.7-2.3 [facility] Comment on above: Order Comment: Speci men Type: BLOOD SPECIMEN Ordering Facility: [facility] Address: [address] [place] [address] Performed By: #### 2 4323-8, 2132-9 #### [facility] CLIA [id number] [address] [place], [place] [id number] [place] CNOVon 09-09-2024 CNOV Office Visit (INTMWS) ELIZABETHREINIER LOPEZ ([id number]) 1935 F NFR Date Time Provider Department 09/09/24 3:20 PM ANAY SCHULER INTSebastienWS During your visit [...] Lab/Diagnostic Studies are reviewed and discussed today @[facility] Health Maintenance Depression Screening Anxiety Screening Shingrix [...] to ass (more content not included)... Normal [facility] 12 Lead EKGon 08-27-2024 12 Lead EKG Normal [facility] BUN/creatinine ratioOrdered By: Vincent Chan on 08-27-2024 Urea nitrogen/Creatinine [Mass ratio] 18.5 mg/mg 10-20 [facility] Basic Metabolic Profile (BMP )on 08-27-2024 Anion gap [Moles/Vol] 12 mmol/L Normal 5-15 [facility] Comment on above: Performed By: #### L 500.2500 ####[facility] [address] [place], [address] BUN/CRE 18.5 RATIO Normal 10-20 [facility] Comment on above: Performed By: #### L 500.2500 ####[facility] [address] [place], [address] Calcium [Mass/Vol] 9.1 mg/dL Normal 7.6-11.0 [facility] Comment on above: Performed By: #### L 500.2500 ####[facility] [address] [place], [address] Chloride [Moles/Vol] 107 mmol/L Normal 96-108 [facility] Comment on above: Performed By: #### L 500.2500 ####[facility] [address] [place], [address] CO2 [Moles/Vol] 21.7 mmol/L Low 22.0-29.0 [facility] Comment on above: Performed By: #### L 500.2500 ####[facility] [address] [place], [address] Creatinine [Mass/Vol] 1.44 mg/dL High 0.70-1.20 [facility] Comment on above: Performed By: #### L 500.2500 ####[facility] [address] [place], [address] ECRCL 24.43 ml/min Normal [facility] Comment on above: Performed By: #### L 500.2500 ####[facility] [address] [place], [address] GFR/1.73 sq M.predicted among non-blacks MDRD (S/P/Bld) [Vol rate/Area] 35 mL/min/{1.73_m2} Low >60 [facility] Comment on above: Result Comment: mL/m in/1.73m2 CKD-EPI Creatinine Equation (2020) Performed By: #### L 500.2500 ####[facility] [address] [place], [address] Glucose [Mass/Vol] 104 mg/dL High 70-99 [facility] Comment on above: Performed By: #### L 500.2500 ####[facility] [address] [place], [address] Potassium [Moles/Vol] 4.1 mmol/L Normal 3.3-5.1 [facility] Comment on above: Performed By: #### L 500.2500 ####[facility] [address] [place], [address] Sodium [Moles/Vol] 140 mmol/L Normal 133-145 [facility] Comment on above: Performed By: #### L 500.2500 ####[facility] [address] [place], [address] Urea nitrogen [Mass/Vol] 27 mg/dL High 4-19 [facility] Comment on above: Performed By: #### L 500.2500 ####[facility] [address] [place], [address] Carbon dioxide measurementOr dered By: Vincent Chan on 08-27-2024 CO2 [Moles/Vol] 21.7 mmol/L Low 22.0-29.0 [facility] Chloride measurementOrdered By: Vincent Chan on 08-27-2024 Chloride [Moles/Vol] 107 mmol/L 96-108 [facility] Emergency Department Summary on 08-27-2024 Emergency Department Summary Normal [facility] Estimation of creatinine asael aranceOrdered By: Vincent Chan on 08-27-2024 Estimated Creatinine Clearance Calc 24.43 ml/min [facility] GFR/1.73 sq M.predicted jennifer g non-blacks MDRD (S/P/Bld) [Vol rate/Area]Ordered By: Vincent Chan on 08-27-2024 Estimated GFR (MDRD) Non-Af Amer 35 Low >60 [facility] Comment on above: mL/min/1.73m2 CKD-EP I Creatinine Equation (2020) Glomerular filtration rate ( GFR) estimation/1.73 sq m using serum, plasma, or whole bOrdered By: Vincent Chan on 08-27-2024 GFR/1.73 sq M.predicted among non-blacks MDRD (S/P/Bld) [Vol rate/Area] 35 mL/min/{1.73_m2} Low >60 [facility] Comment on above: mL/min/1.73m2 CKD-EP I Creatinine Equation (2020) Serum creatinine measurement (mass/volume)Ordered By: Vincent Chan on 08-27-2024 Creatinine [Mass/Vol] 1.44 mg/dL High 0.70-1.20 [facility] Serum glucose measurement (m ass/volume)Ordered By: Vincent Chan on 08-27-2024 Glucose [Mass/Vol] 104 mg/dL High 70-99 [facility] Serum or plasma anion gap de termination (moles/volume)Ordered By: Vincent Chan on 08-27-2024 Anion gap [Moles/Vol] 12 mmol/L 5-15 [facility] Serum or plasma calcium dex urement (mass/volume)Ordered By: Vincent Chan on 08-27-2024 Calcium [Mass/Vol] 9.1 mg/dL 7.6-11.0 [facility] Serum or plasma potassium me asurementOrdered By: Vincent Chan on 08-27-2024 Potassium [Moles/Vol] 4.1 mmol/L 3.3-5.1 [facility] Serum or plasma sodium measu rement (moles/volume)Ordered By: Vincent Chan on 08-27-2024 Sodium [Moles/Vol] 140 mmol/L 133-145 [facility] Serum or plasma urea nitroge n measurement (mass/volume)Ordered By: Vincent Chan on 08-27-2024 Urea nitrogen [Mass/Vol] 27 mg/dL High 4-19 [facility] PVR LEG RIO VAS LABon 2024 [facility] Non-Invasive Vascular Laboratory [facility] Lower Extremity Arterial Physiology Study Bilateral/Complete [...] Left ankle: Normal at rest. Technologist: Kassandra Benavidez RVT, [facility] Ordering physician: ANAY SCHULER Interpreting physician: MANGO Castro DO Final CC [employer] Image : [id number] [employer] See Link below for Image Normal [facility] CNOVon 08-02-2024 CNOV Office Visit (INTMWS) REINIER ELIZABETH ([id number]) 1935 F NFR Date Time Provider Department [...] an upcoming EGD by Dr. Collins the [employer]. Her brother calls her calls her every [...] this happens frequently but not very consistently. [employer] is working for her but it is [...] Glaucoma - right eye left eye - [facility] . Dr Gao REPAIR FIRST ABDOMINAL [...] % ophthalmic (more content not included)... Normal [facility] 25(OH)D3 [facility] 25-hydroxyvitamin D3 [Mass/Vol] 37.4 ng/mL Normal 31.0-80.0 [facility] Comment on above: Order Comment: Speci men Type: BLOOD SPECIMEN Ordering Facility: [facility] Address: [address] [place] [address] Result Comment: Clas sification of 25 [place] Vitamin D status: Deficiency/Insufficiency: < or = 30 ng/ml. Sufficiency/Optimal Levels: 31-80 ng/mL Toxicity: > 100 ng/mL. Test performed by chemiluminescent immunoassay. Performed By: #### 1 989-3 #### [facility] CLIA [id number] [address] [place] [address] [place] [address] [place] CBC panel Auto (Bld)on 07-25 Erythrocyte distribution width (RBC) [Ratio] 12.5 % Normal 11.5-15.0 [facility] Comment on above: Order Comment: Speci men Type: BLOOD SPECIMEN Ordering Facility: [facility] Address: [address] [place] [address] Performed By: #### 2 8, 2132-02 #### [facility] CLIA [id number] [address] [place] [address] [place] Hematocrit (Bld) [Volume fraction] 35.4 % Low 36.0-46.0 [facility] Comment on above: Order Comment: Speci men Type: BLOOD SPECIMEN Ordering Facility: [facility] Address: [address] [place] [address] Performed By: #### 2 4328, 2132-02 #### [facility] CLIA [id number] [address] [place] [address] [place] Hemoglobin (Bld) [Mass/Vol] 11.3 g/dL Low 11.5-15.5 [facility] Comment on above: Order Comment: Speci men Type: BLOOD SPECIMEN Ordering Facility: [facility] Address: [address] [place] [address] Performed By: #### 2 4323-01, 2132-02 #### [facility] CLIA [id number] [address] [place] [address] [place] MCH (RBC) [Entitic mass] 31.6 pg Normal 26.0-34.0 [facility] Comment on above: Order Comment: Speci men Type: BLOOD SPECIMEN Ordering Facility: [facility] Address: [address] [place] [address] Performed By: #### 2 4323-8, 2132-02 #### [facility] CLIA [id number] [address] [place] [address] [place] MCHC (RBC) [Mass/Vol] 31.9 g/dL Normal 30.5-36.0 [facility] Comment on above: Order Comment: Speci men Type: BLOOD SPECIMEN Ordering Facility: [facility] Address: [address] [place] [address] Performed By: #### 2 4323-8, 2132-02 #### [facility] CLIA [id number] [address] [place] [address] [place] MCV (RBC) [Entitic vol] 98.9 fL Normal 80.0-100.[address] [facility] Comment on above: Order Comment: Speci men Type: BLOOD SPECIMEN Ordering Facility: [facility] Address: [address] [place] [address] Performed By: #### 2 4323-8, 2132-02 #### [facility] CLIA [id number] [address] [place] [address] [place] Nucleated RBC (Bld) [#/Vol] 10*3/uL Normal <0.01 [facility] Comment on above: Order Comment: Speci men Type: BLOOD SPECIMEN Ordering Facility: [facility] Address: [address] [place] [address] Performed By: #### 2 4323-8, 2132-02 #### [facility] CLIA [id number] [address] [place] [address] [place] Platelet mean volume (Bld) [Entitic vol] 10.1 fL Normal 9.0-12.7 [facility] Comment on above: Order Comment: Speci men Type: BLOOD SPECIMEN Ordering Facility: [facility] Address: [address] [place] [address] Performed By: #### 2 4323-8, 2132-02 #### [facility] CLIA [id number] [address] [place] [address] [place] Platelets (Bld) [#/Vol] 180 10*3/uL Normal 150-400 [facility] Comment on above: Order Comment: Speci men Type: BLOOD SPECIMEN Ordering Facility: [facility] Address: [address] [place] [address] Performed By: #### 2 4323-8, 2132-02 #### [facility] CLIA [id number] [address] [place] [address] [place] RBC (Bld) [#/Vol] 3.58 10*6/uL Low 3.90-5.20 [facility] Comment on above: Order Comment: Speci men Type: BLOOD SPECIMEN Ordering Facility: [facility] Address: [address] [place] [address] Performed By: #### 2 432-8, 2132-02 #### [facility] CLIA [id number] [address] [place] [address] [place] WBC (Bld) [#/Vol] 5.17 10*3/uL Normal 3.70-11.00 [facility] Comment on above: Order Comment: Speci men Type: BLOOD SPECIMEN Ordering Facility: [facility] Address: [address] [place] [address] Performed By: #### 2 432-8, 2132-02 #### [facility] CLIA [id number] [address] [place] [address] [place] Comprehensive metabolic 2000 panelon 07-25-2024 Albumin [Mass/Vol] 4.0 g/dL Normal 3.9-4.9 [facility] Comment on above: Order Comment: Speci men Type: BLOOD SPECIMEN Ordering Facility: [facility] Address: [address] [place] [address] Performed By: #### 2 432-8, 2132-02 #### [facility] CLIA [id number] [address] [place] [address] [place] ALP [Catalytic activity/Vol] 42 U/L Normal 34-123 [facility] Comment on above: Order Comment: Speci men Type: BLOOD SPECIMEN Ordering Facility: [facility] Address: [address] [place] [address] Performed By: #### 2 432, 2132-02 #### [facility] CLIA [id number] [address] [address] [place] ALT [Catalytic activity/Vol] 19 U/L Normal 7-38 [facility] Comment on above: Order Comment: Speci men Type: BLOOD SPECIMEN Ordering Facility: [facility] Address: [address] [place], [place] [address] Performed By: #### 2 4323-01, 2132-02 #### [facility] CLIA [id number] [address] [place] [address] [place] Anion gap [Moles/Vol] 10 mmol/L Normal 8-15 [facility] Comment on above: Order Comment: Speci men Type: BLOOD SPECIMEN Ordering Facility: [facility] Address: [address] [place] [address] Performed By: #### 2 4323-01, 2132-02 #### [facility] CLIA [id number] [address] [place], [place] [address] [place] AST [Catalytic activity/Vol] 23 U/L Normal 13-35 [facility] Comment on above: Order Comment: Speci men Type: BLOOD SPECIMEN Ordering Facility: [facility] Address: [address] [place], [place] [address] Performed By: #### 2 4323-01, 2132-02 #### [facility] CLIA [id number] [address] [place], [place] [address] [place] Bilirubin [Mass/Vol] 0.4 mg/dL Normal 0.2-1.3 [facility] Comment on above: Order Comment: Speci men Type: BLOOD SPECIMEN Ordering Facility: [facility] Address: [address] [place], [place] [address] Performed By: #### 2 43209-03, 2132-02 #### [facility] CLIA [id number] [address] [place], [place] [address] [place] Calcium [Mass/Vol] 9.5 mg/dL Normal 8.5-10.2 [facility] Comment on above: Order Comment: Speci men Type: BLOOD SPECIMEN Ordering Facility: [facility] Address: [address] [place], [place] [address] Performed By: #### 2 4323-01, 2132-02 #### [facility] CLIA [id number] [address] [place], [place] [address] [place] Chloride [Moles/Vol] 109 mmol/L High 98-107 [facility] Comment on above: Order Comment: Speci men Type: BLOOD SPECIMEN Ordering Facility: [facility] Address: [address] [place] [address] Performed By: #### 2 4323-01, 2132-02 #### [facility] CLIA [id number] [address] [place] [address] [place] CO2 [Moles/Vol] 22 mmol/L Normal 22-30 [facility] Comment on above: Order Comment: Speci men Type: BLOOD SPECIMEN Ordering Facility: [facility] Address: [address] [place], [place] [address] Performed By: #### 2 4323-01, 2132-02 #### [facility] CLIA [id number] [address] [place], [place] [address] [place] Creatinine [Mass/Vol] 1.43 mg/dL High 0.58-0.96 [facility] Comment on above: Order Comment: Speci men Type: BLOOD SPECIMEN Ordering Facility: [facility] Address: [address] [place], [place] [address] Performed By: #### 2 4323-01, 2132-02 #### [facility] CLIA [id number] [address] [place], [place] [address] [place] Creatinine and Glomerular filtration rate.predicted panel (S/P/Bld) 36 mL/min/1.73m??? Low >=60 [facility] Comment on above: Order Comment: Speci men Type: BLOOD SPECIMEN Ordering Facility: [facility] Address: [address] [place] [address] Result Comment: Lien mated Glomerular Filtration Rate [...] reflect actual GFR. Performed By: #### 2 4323-8, 2132-02 #### [facility] CLIA [id number] [address] [place], [place] [address] [place] Glucose [Mass/Vol] 95 mg/dL Normal 74-99 [facility] Comment on above: Order Comment: Claudia vilchis Type: BLOOD SPECIMEN Ordering Facility: [facility] Address: [address] [place] [address] Result Comment: The [place] Diabetes Association (ADA) provides guidance for cutoff [...] Standards of Medical Care in Diabetes 2016, [place] Diabetes Association. Diabetes Care. 2016.39(Suppl 1). Performed By: #### 2 4323-8, 2132-02 #### [facility] CLIA [id number] [address] [place] [address] [place] Potassium [Moles/Vol] 4.7 mmol/L Normal 3.7-5.1 [facility] Comment on above: Order Comment: Claudia vilchis Type: BLOOD SPECIMEN Ordering Facility: [facility] Address: [address] [place] [address] Performed By: #### 2 4323-8, 2132-02 #### [facility] CLIA [id number] [address] [place] [address] [place] Protein [Mass/Vol] 7.0 g/dL Normal 6.3-8.0 [facility] Comment on above: Order Comment: Speci men Type: BLOOD SPECIMEN Ordering Facility: [facility] Address: [address] [place] [address] Performed By: #### 2 432-8, 2132-02 #### [facility] CLIA [id number] [address] [place] [address] [place] Sodium [Moles/Vol] 141 mmol/L Normal 136-144 [facility] Comment on above: Order Comment: Speci men Type: BLOOD SPECIMEN Ordering Facility: [facility] Address: [address] [place] [address] Performed By: #### 2 4328, 2132-02 #### [facility] CLIA [id number] [address] [place] [address] [place] Urea nitrogen [Mass/Vol] 26 mg/dL High 7-21 [facility] Comment on above: Order Comment: Speci men Type: BLOOD SPECIMEN Ordering Facility: [facility] Address: [address] [place] [address] Performed By: #### 2 4328, 2132-02 #### [facility] CLIA [id number] [address] [place], [place] [address] [place] Lipid 1996 panelon 5 Cholesterol [Mass/Vol] 184 mg/dL Normal <200 [facility] Comment on above: Order Comment: Speci men Type: BLOOD SPECIMEN Ordering Facility: [facility] Address: [address] [place], [place] [address] Result Comment: <200 mg/dL, Desirable 200-239 mg/dL, Borderline high >239 mg/dL, High Performed By: #### 2 8, 2132-02 #### [facility] CLIA [id number] [address] [facility] Cholesterol in HDL [Mass/Vol] 56 mg/dL Normal >39 [facility] Comment on above: Order Comment: Claudia mame Type: BLOOD SPECIMEN Ordering Facility: [facility] Address: [address] [place] [address] Result Comment: 40-5 9 mg/dL, Acceptable >59 mg/dL, High: Negative risk factor for coronary heart disease <40 mg/dL, Low: Positive risk factor for coronary heart disease Performed By: #### 2 43209-03, 2132-02 #### [facility] CLIA [id number] [address] [place] [address] Cholesterol in LDL [Mass/Vol] 111 mg/dL High <100 [facility] Comment on above: Order Comment: Claudia vilchis Type: BLOOD SPECIMEN Ordering Facility: [facility] Address: [address] [place] [address] Result Comment: <100 mg/dL, Optimal 100-129 mg/dL, Near optimal/above optimal 130-159 mg/dL, Borderline high 160-189 mg/dL, High >189 mg/dL, Very high Secondary prevention optimal LDL Cholesterol levels are recommended to be < 70 mg/dL Performed By: #### 2 43209-03, 2132-02 #### [facility] CLIA [id number] [address] [place] [address] [facility] Cholesterol in LDL/Cholesterol in HDL [Mass ratio] 1.98 {ratio} Normal <2.54 [facility] Comment on above: Order Comment: Chrisgamal vilchis Type: BLOOD SPECIMEN Ordering Facility: [facility] Address: [address] [place] [address] Result Comment: Milad fagan: 1. National Cholesterol Education Program ATP III Guideline At-A-Glance Quick Desk Reference: National Heart, Lung, and Blood [place]. National Institutes of Health. 2001: NIH Publication No. 01-3305. 2. An International Atherosclerosis Society position paper: global recommendations for the management of dyslipidemia: executive summary, Atherosclerosis. 2014: 232(2):410-413. Performed By: #### 2 4323-01, 2132-02 #### [facility] CLIA [id number] [address] [place] [address] [place] Cholesterol in VLDL [Mass/Vol] 17 mg/dL Normal <30 [facility] Comment on above: Order Comment: Claudia vilchis Type: BLOOD SPECIMEN Ordering Facility: [facility] Address: [address] [place] [address] Performed By: #### 2 4323-01, 2132-02 #### [facility] CLIA [id number] [address] [place] [address] [place] Cholesterol non HDL [Mass/Vol] 128 mg/dL Normal <130 [facility] Comment on above: Order Comment: Claudia vilchis Type: BLOOD SPECIMEN Ordering Facility: [facility] Address: [address] [place] [address] Result Comment: <130 mg/dL, Optimal 130-159 mg/dL, Near optimal/above optimal 160-189 mg/dL, Borderline high 190-219 mg/dL, High >219 mg/dL, Very high Secondary prevention optimal non HDL Cholesterol levels are recommended to be <100 mg/dL Performed By: #### 2 4323-01, 2132-02 #### [facility] CLIA [id number] [address] [place], [place] [id number] [place] Cholesterol.total/Choles terol in HDL [Mass ratio] 3.29 {ratio} Normal <5.10 [facility] Comment on above: Order Comment: Claudia vilchis Type: BLOOD SPECIMEN Ordering Facility: [facility] Address: [address] [id number] Performed By: #### 2 4323-01, 2132-02 #### [facility] CLIA [id number] [address] [place], [place] [id number] [place] FASTING TIME 12 hrs Normal [facility] Comment on above: Order Comment: Claudia vilchis Type: BLOOD SPECIMEN Ordering Facility: [facility] Address: [address] [place] [address] Performed By: #### 2 4323-8, 2132-02 #### [facility] CLIA [id number] [address] [place] [address] [place] Triglyceride [Mass/Vol] 87 mg/dL Normal <[address] [facility] Comment on above: Order Comment: Chrisi men Type: BLOOD SPECIMEN Ordering Facility: [facility] Address: [address] [place] [address] Result Comment: <150 mg/dL, Normal 150-199 mg/dL, Borderline high 200-499 mg/dL, High >499 mg/dL, Very high Performed By: #### 2 4323-8, 2132-02 #### [facility] CLIA [id number] [address] [place] [address] [place] TSH SerPl-aCncon 07-25-2024 TSH Qn 2.630 m[IU]/L Normal 0.270-4.200 [facility] Comment on above: Order Comment: Claudia mame Type: BLOOD SPECIMEN Ordering Facility: [facility] Address: [address] [place] [address] Performed By: #### 2 4323-8, 2132-02 #### [facility] CLIA [id number] [address] [place] [address] [place] Endocrinology Visit Reporton 06-14-2024 Endocrinology Visit Report Normal [facility] Bacteria Ur Culton Bacteria identified Cx [...] , Intermediate >32 , Resistant >64 Abnormal [facility] Comment on above: Performed By: #### 5 7021-8 #### [facility] CLIA [id number] [address] [place], [place] [address] [place] Bacteria identified Cx Nom (U) ORGANISM ID: [...] , Intermediate >32 , Resistant >64 Abnormal [facility] Comment on above: Performed By: #### 5 7021-8 #### [facility] CLIA [id number] [address] [place] [address] [place] CNOVon 06-10-2024 CNOV Office Visit (UCWSTR) ELIZABETHREINIER LOPEZ ([id number]) 1935 F NFR Date Time Provider Department 06/10/24 3:30 PM [facility] During your visit today, we recorded the [...] 2 (age, bleeding) At risk for stroke [id number] = 4 (HTN, age2, female gender) Benign [...] IF UNABLE, PLEASE REFER TO [facility]. DX: EDEMA latanoprost (XALATAN) 0.005 % [...] mL/min/1.73m? 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 ASSESSMENT/PLAN: 1. Urinary frequency - ICD9: 788.41, ICD10: R35.0 - UA positive for gurwinder esterase, hematuria, proteinuria, and nitrates - UA DIP, URINE (POC) - NITROFURANTOIN MONOHYDRATE AND MACROCRYSTAL 100 MG ORAL CAP. - URINE CULTURE - bactrim can be used with caution if needed (taking ARB and (more content not included)... Normal [facility] 06-10-2024 [facility] Telephone (INTMWS) REINIER ELIZABETH ([id number]) 1935 F NFR Date Time Provider Department 06/10/24 AANY SCHULER INTSebastienWS During your visit today, we [...] to come in to give the urine Regards, Jazmine Denney MD, LPN 06/10/2024 1:15 PM Signed Called and [...] WITH MICROSCOPIC, REFLEX CULTURE [SQUACII] Order #: [id number] FUTURE Prescriptions as of 06/10/2024 - atorvastatin [...] IF UNABLE, PLEASE REFER TO [facility]. DX: EDEMA - latanoprost (XALATAN) 0.005 % [...] 04/28/2022 Gastrointestina (more content not included)... Normal [facility] T4 Free SerPl-mCncon 024 Free T4 [Mass/Vol] 1.4 ng/dL Normal 0.9-1.7 [facility] Comment on above: Order Comment: Speci men Type: BLOOD SPECIMEN Ordering Facility: [facility] Address: [address] [place] [address] Performed By: #### 2 4323-8, 2132-9 #### [facility] CLIA [id number] [address] [place] [address] [place] UA DIP, URINE (POC)on 2023 BILIRUBIN UA (POCT) Negative Negative [facility] CLARITY UA (POCT) Clear [facility] COLOR UA (POCT) Yellow [facility] GLUCOSE UA (POCT) Negative Negative mg/dL [facility] Hemoglobin Ql (U) Trace-intact Abnormal Negative [facility] Interpretation and review of laboratory results Abnormal [facility] KETONE UA (POCT) Trace Negative mg/dL [facility] LEUKOCYTES UA (POCT) Small Abnormal Negative [facility] NITRITE UA (POCT) Positive Abnormal Negative [facility] PH UA (POCT) 6.0 4.5 - 8.0 [facility] Protein Ql (U) 100 mg/dL Abnormal Negative [facility] SPECIFIC GRAVITY UA (POCT) 1.025 1.005 - 1.030 [facility] UROBILINOGEN UA (POCT) 0.2 Michelle l E.U./dL [facility] Location:[facility], [address] [place] [address], [place], [place], [id number] [place] [address] POINT OF CARE [facility] Urinalysis complete panel (U )on 06-10-2024 BACTERIA UL 1666.1 uL High Negative [facility] Comment on above: Order Comment: Speci men Type: BLOOD SPECIMEN Ordering Facility: [facility] Address: [address] [place] [address] Performed By: #### 5 7021-8 #### [facility] CLIA [id number] [address] [place] [address] [place] Bilirubin Ql (U) Negative Normal Negative [facility] Comment on above: Order Comment: Speci men Type: BLOOD SPECIMEN Ordering Facility: [facility] Address: [address] [place] [address] Performed By: #### 5 7021-8 #### [facility] CLIA [id number] [address] [place] [address] [place] Clarity (Unsp spec) Clear Normal Clear [facility] Comment on above: Order Comment: Speci men Type: BLOOD SPECIMEN Ordering Facility: [facility] Address: [address] [place] [address] Performed By: #### 5 7021-8 #### [facility] CLIA [id number] [address] [place] [address] [place] Color (U) Yellow Normal Yellow [facility] Comment on above: Order Comment: Speci men Type: BLOOD SPECIMEN Ordering Facility: [facility] Address: [address] [place] [address] Performed By: #### 5 7021-8 #### [facility] CLIA [id number] [address] [place] [address] [place] Epithelial cells LM.HPF (Urine sed) [#/Area] None Seen Normal [facility] Comment on above: Order Comment: Speci men Type: BLOOD SPECIMEN Ordering Facility: [facility] Address: [address] [place] [address] Performed By: #### 5 7021-8 #### [facility] CLIA [id number] [address] [place] [address] [place] Glucose Test strip (U) [Mass/Vol] Negative Normal Negative [facility] Comment on above: Order Comment: Speci men Type: BLOOD SPECIMEN Ordering Facility: [facility] Address: [address] [place] [address] Performed By: #### 5 7021-8 #### [facility] CLIA [id number] [address] [place] [address] [place] Hemoglobin Ql (U) Negative Normal Negative [facility] Comment on above: Order Comment: Speci men Type: BLOOD SPECIMEN Ordering Facility: [facility] Address: [address] [place] [address] Performed By: #### 5 7021-8 #### [facility] CLIA [id number] [address] [place] [address] [place] Hyaline casts (Urine sed) [#/Area] 1-3 /LPF Abnormal 0 /LPF [facility] Comment on above: Order Comment: Speci men Type: BLOOD SPECIMEN Ordering Facility: [facility] Address: [address] [place] [address] Performed By: #### 5 7021-8 #### [facility] CLIA [id number] [address] [place] [address] [place] Ketones Ql (U) Negative Normal Negative [facility] Comment on above: Order Comment: Speci men Type: BLOOD SPECIMEN Ordering Facility: [facility] Address: [address] [place] [address] Performed By: #### 5 7021-8 #### [facility] CLIA [id number] [address] [place] [address] [place] Leukocyte esterase Test strip Ql (U) 2+ Abnormal Negative [facility] Comment on above: Order Comment: Speci men Type: BLOOD SPECIMEN Ordering Facility: [facility] Address: [address] [place] [address] Performed By: #### 5 7021-8 #### [facility] CLIA [id number] [address] [place] [address] [place] Nitrite Ql (U) Positive Abnormal Negative [facility] Comment on above: Order Comment: Speci men Type: BLOOD SPECIMEN Ordering Facility: [facility] Address: [address] [place] [address] Performed By: #### 5 7021-8 #### [facility] CLIA [id number] [address] [place] [address] [place] pH (U) 6.0 [pH] Normal <8.5 [facility] Comment on above: Order Comment: Speci men Type: BLOOD SPECIMEN Ordering Facility: [facility] Address: [address] [place] [address] Performed By: #### 5 7021-8 #### [facility] CLIA [id number] [address] [place], [place] [id number] [place] Protein (U) [Mass/Vol] Trace Abnormal Negative [facility] Comment on above: Order Comment: Speci men Type: BLOOD SPECIMEN Ordering Facility: [facility] Address: [address] [place] [address] Performed By: #### 5 7021-8 #### [facility] CLIA [id number] [address] [place] [address] [place] RBC LM.HPF (Urine sed) [#/Area] 6-10 /HPF Abnormal 0-2 /HPF [facility] Comment on above: Order Comment: Speci men Type: BLOOD SPECIMEN Ordering Facility: [facility] Address: [address] [place] [address] Performed By: #### 5 7021-8 #### [facility] CLIA [id number] [address] [place] [address] [place] Specific gravity (U) [Rel density] 1.019 Normal 1.005-1.030 [facility] Comment on above: Order Comment: Speci men Type: BLOOD SPECIMEN Ordering Facility: [facility] Address: [address] [place] [address] Performed By: #### 5 7021-8 #### [facility] CLIA [id number] [address] [place] [address] [place] Urobilinogen Ql (U) 0.2 EU/dL Normal 0.2-1.0 EU/dL [facility] Comment on above: Order Comment: Speci men Type: BLOOD SPECIMEN Ordering Facility: [facility] Address: [address] [place] [address] Performed By: #### 5 7021-8 #### [facility] CLIA [id number] [address] [place] [address] [place] WBC LM.HPF (Urine sed) [#/Area] /[HPF] Abnormal 0-5 /HPF [facility] Comment on above: Order Comment: Speci men Type: BLOOD SPECIMEN Ordering Facility: [facility] Address: [address] [place] [address] Performed By: #### 5 7021-8 #### [facility] CLIA [id number] [address] [place] [address] [place] CNOVon 05-30-2024 CNOV Office Visit (INTMWS) REINIER ELIZABETH ([id number]) 1935 F NFR Date Time Provider Department 05/30/24 1:40 PM ANAY SCHULER During your visit today, [...] an upcoming EGD by Dr. Collins the [employer]. Her brother calls her calls her every [...] 2 (age, bleeding) At risk for stroke [id number] = 4 (HTN, age2, female gender) Benign [...] Glaucoma - right eye left eye - [facility] . Dr Gao REPAIR FIRST ABDOMINAL [...] Tobacco comment (more content not included)... Normal [facility] Cardiology Visit Reporton Cardiology Visit Report Normal [facility] CBC-Complete Blood Cnt No Di ffon 05-04-2024 Erythrocyte distribution width (RBC) [Ratio] 12.8 % Normal 11.6-14.6 [facility] Comment on above: Performed By: #### L 100.0500, L500.3600, L503.6550, L503.6030 ####[facility] [address] [place], [address] Hematocrit (Bld) [Volume fraction] 32.4 % Low 37-47 [facility] Comment on above: Performed By: #### L 100.0500, L500.3600, L503.6550, L503.6030 ####[facility] [address] [place], [address] Hemoglobin (Bld) [Mass/Vol] 10.6 g/dL Low 12.0-15.0 [facility] Comment on above: Performed By: #### L 100.0500, L500.3600, L503.6550, L503.6030 ####[facility] [address] [place], [address] MCH (RBC) [Entitic mass] 31.8 pg Normal 27.0-32.0 [facility] Comment on above: Performed By: #### L 100.0500, L500.3600, L503.6550, L503.6030 ####[facility] [address] [place], [address] MCHC (RBC) [Mass/Vol] 32.7 g/dL Normal 32-36 [facility] Comment on above: Performed By: #### L 100.0500, L500.3600, L503.6550, L503.6030 ####[facility] [address] [place], [address] MCV (RBC) [Entitic vol] 97.3 fL Normal 81-99 [facility] Comment on above: Performed By: #### L 100.0500, L500.3600, L503.6550, L503.6030 ####[facility] [address] [place], [address] Platelet mean volume (Bld) [Entitic vol] 10.0 fL Normal 6.2-12.0 [facility] Comment on above: Performed By: #### L 100.0500, L500.3600, L503.6550, L503.6030 ####[facility] [address] [place], [address] Platelets (Bld) [#/Vol] 222 10*3/uL Normal 150-450 [facility] Comment on above: Performed By: #### L 100.0500, L500.3600, L503.6550, L503.6030 ####[facility] [address] [place], [address] RBC (Bld) [#/Vol] 3.33 10*6/uL Low 4.2-5.4 [facility] Comment on above: Performed By: #### L 100.0500, L500.3600, L503.6550, L503.6030 ####[facility] [address] [place], [address] RDW SD 45.2 fl High 35.1-43.9 [facility] Comment on above: Performed By: #### L 100.0500, L500.3600, L503.6550, L503.6030 ####[facility] [address] [place], [address] WBC (Bld) [#/Vol] 6.8 10*3/uL Normal 4.4-11.0 [facility] Comment on above: Performed By: #### L 100.0500, L500.3600, L503.6550, L503.6030 ####[facility] [address] [place], [address] Ferritinon 05-04-2024 Ferritin [Mass/Vol] 69 ng/mL Normal 8-252 [facility] Comment on above: Performed By: #### L 100.0500, L500.3600, L503.6550, L503.6030 ####[facility] [address] [place], [address] Iron+Iron Binding Capacityon 05-04-2024 Iron [Mass/Vol] 60 ug/dL Normal 50-170 [facility] Comment on above: Performed By: #### L 100.0500, L500.3600, L503.6550, L503.6030 ####[facility] [address] [place], [address] IRON SATURATION 25.4 Normal 15.0-55.0 [facility] Comment on above: Performed By: #### L 100.0500, L500.3600, L503.6550, L503.6030 ####[facility] [address] [place], [address] TIBC 236 ug/dL Low 250-450 [facility] Comment on above: Performed By: #### L 100.0500, L500.3600, L503.6550, L503.6030 ####[facility] [address] [place], [address] Renal Profileon 05-04-2024 Albumin [Mass/Vol] 3.5 g/dL Normal 3.2-5.0 [facility] Comment on above: Performed By: #### L 100.0500, L500.3600, L503.6550, L503.6030 ####[facility] [address] [place], [address] BUN/CRE 17.1 RATIO Normal 10-20 [facility] Comment on above: Performed By: #### L 100.0500, L500.3600, L503.6550, L503.6030 ####[facility] [address] [place], [address] CA,Total 9.0 mg/dL Normal 8.5-10.1 [facility] Comment on above: Performed By: #### L 100.0500, L500.3600, L503.6550, L503.6030 ####[facility] [address] [place], [address] Chloride [Moles/Vol] 112 mmol/L High 98-107 [facility] Comment on above: Performed By: #### L 100.0500, L500.3600, L503.6550, L503.6030 ####[facility] [address] [place], [address] CO2 [Moles/Vol] 25.0 mmol/L Normal 21.0-32.0 [facility] Comment on above: Performed By: #### L 100.0500, L500.3600, L503.6550, L503.6030 ####[facility] [address] [place], [address] Creatinine [Mass/Vol] 1.23 mg/dL High 0.55-1.02 [facility] Comment on above: Result Comment: The validity of the calculated GFR GFRAA in patients over70 years has not been determined. Clinical correlation isessential. Performed By: #### L 100.0500, L500.3600, L503.6550, L503.6030 ####[facility] [address] [place], [address] EST GFR - AA 53 mL/min Low >60 [facility] Comment on above: Result Comment: Afri can Vietnamese GFR Calc Performed By: #### L 100.0500, L500.3600, L503.6550, L503.6030 ####[facility] [address] [place], [address] GFR/1.73 sq M.predicted among non-blacks MDRD (S/P/Bld) [Vol rate/Area] 44 mL/min/{1.73_m2} Low >60 [facility] Comment on above: Result Comment: Non- GFR Calc Performed By: #### L 100.0500, L500.3600, L503.6550, L503.6030 ####[facility] [address] [place], [address] Glucose [Mass/Vol] 105 mg/dL Normal 74-106 [facility] Comment on above: Result Comment: Fast ing Glucose result from 100 to 125 mg/dLsuggests IMPAIRED HOMEOSTASIS per A.D.A. criteria. Performed By: #### L 100.0500, L500.3600, L503.6550, L503.6030 ####[facility] [address] [place], [address] Phosphate [Mass/Vol] 2.4 mg/dL Low 2.5-4.9 [facility] Comment on above: Performed By: #### L 100.0500, L500.3600, L503.6550, L503.6030 ####[facility] [address] [place], [address] Potassium [Moles/Vol] 4.3 mmol/L Normal 3.5-5.1 [facility] Comment on above: Performed By: #### L 100.0500, L500.3600, L503.6550, L503.6030 ####[facility] [address] [place], [address] Sodium [Moles/Vol] 140 mmol/L Normal 136-145 [facility] Comment on above: Performed By: #### L 100.0500, L500.3600, L503.6550, L503.6030 ####[facility] [address] [place], [address] Urea nitrogen [Mass/Vol] 21 mg/dL High 7-18 [facility] Comment on above: Performed By: #### L 100.0500, L500.3600, L503.6550, L503.6030 ####[facility] [address] [place], [address] Office Visit Reporton 2023 Office Visit Report Normal [facility] Telephone (INTMWS) REINIER ELIZABETH ([id number]) 1935 F NFR Date Time Provider Department 01/13/24 ANAY SCHULER INTWS During your visit today, we recorded the following information about you: Megha Rivera MA 01/13/2024 8:23 AM Signed ----- Message from Anay Schuler MD sent at 01/12/2024 5:51 PM EDT ----- Reinier your hemoglobin is still on the lower [...] results AND instructions, pt voiced understanding. Margarette SHERIN Perry Allergies As of Date: 01/13/2024 Noted Allergy [...] IF UNABLE, PLEASE REFER TO [facility]. DX: EDEMA - latanoprost (XALATAN) 0.005 % [...] 01/23/2023 At risk for bleeding associated with anticoagul* 3 Anticoa (more content not included)... Normal [facility] CBC W Auto Differential pane l (Bld)on 01-11-2024 Basophils (Bld) [#/Vol] 0.04 10*3/uL [facility] Basophils/100 WBC (Bld) 0.7 % C [facility] Differential cell count method Nom (Bld) Auto [facility] Eosinophils (Bld) [#/Vol] 0.34 10*3/uL [facility] Eosinophils/100 WBC (Bld) 6.0 % [facility] Erythrocyte distribution width (RBC) [Ratio] 13.5 % 11.5 - 15.0 % [facility] Hematocrit (Bld) [Volume fraction] 33.9 % Low 36.0 - 46.0 % [facility] Hemoglobin (Bld) [Mass/Vol] 10.5 g/dL Low 11.5 - 15.5 g/dL [facility] Immature granulocytes (Bld) [#/Vol] [facility] Immature granulocytes/100 WBC (Bld) 0.2 % [facility] Interpretation and review of laboratory results Abnormal [facility] Lymphocytes (Bld) [#/Vol] 1.55 10*3/uL [facility] Lymphocytes/100 WBC (Bld) 27.3 % [facility] MCH (RBC) [Entitic mass] 30.5 pg 26. 0 - 34.0 pg [facility] MCHC (RBC) [Mass/Vol] 31.0 g/dL 30.5 - 36.0 g/dL [facility] MCV (RBC) [Entitic vol] 98.5 fL 80.0 - 100.0 fL [facility] Monocytes (Bld) [#/Vol] 0.61 10*3/[facility] Monocytes/100 WBC (Bld) 10.8 % [facility] Neutrophils (Bld) [#/Vol] 3.12 10*3/uL [facility] Neutrophils/100 WBC (Bld) 55.0 % [facility] Nucleated RBC (Bld) [#/Vol] NINF [facility] Nucleated RBC/100 WBC (Bld) [Ratio] 0.0 % /100 WBC [facility] Platelet mean volume (Bld) [Entitic vol] 10.3 fL 9.0 - 12.7 fL [facility] Platelets (Bld) [#/Vol] 190 10*3/uL [facility] RBC (Bld) [#/Vol] 3.44 10*6/uL Low 3.90 - 5.2 0 m/uL [facility] WBC (Bld) [#/Vol] 5.67 10*3/uL [facility] Basophils (Bld) [#/Vol] 0.04 10*3/uL Normal <0.11 [facility] Comment on above: Order Comment: Speci men Type: BLOOD SPECIMENOrdering Facility: [facility] Address: [address] [place] [address] Performed By: #### 5 7021-8 ####[facility] [id number] [place] [address] [place] Basophils/100 WBC (Bld) 0.7 % Normal [facility] Comment on above: Order Comment: Speci men Type: BLOOD SPECIMENOrdering Facility: [facility] Address: [address] [place] [address] Performed By: #### 5 7021-8 ####[facility] [id number] [place] [address] [place] Differential cell count method Nom (Bld) Auto Normal [facility] Comment on above: Order Comment: Speci men Type: BLOOD SPECIMENOrdering Facility: [facility] Address: [address] [place] [address] Performed By: #### 5 7021-8 ####[facility] [id number] [place] [address] [place] Eosinophils (Bld) [#/Vol] 0.34 10*3/uL Normal <0.46 [facility] Comment on above: Order Comment: Speci men Type: BLOOD SPECIMENOrdering Facility: [facility] Address: [address] [place] [address] Performed By: #### 5 7021-8 ####[facility] [id number] [place] [address] [place] Eosinophils/100 WBC (Bld) 6.0 % Normal [facility] Comment on above: Order Comment: Speci men Type: BLOOD SPECIMENOrdering Facility: [facility] Address: [address] [place] [address] Performed By: #### 5 7021-8 ####[facility] [id number] [place] [address] [place] Erythrocyte distribution width (RBC) [Ratio] 13.5 % Normal 11.5-15.0 [facility] Comment on above: Order Comment: Speci men Type: BLOOD SPECIMENOrdering Facility: [facility] Address: [address] [place] [address] Performed By: #### 5 7021-8 ####[facility] [id number] [place] [address] [place] Hematocrit (Bld) [Volume fraction] 33.9 % Low 36.0-46.0 [facility] Comment on above: Order Comment: Speci men Type: BLOOD SPECIMENOrdering Facility: [facility] Address: [address] [place] [address] Performed By: #### 5 7021-8 ####[facility] [id number] [place] [address] [place] Hemoglobin (Bld) [Mass/Vol] 10.5 g/dL Low 11.5-15.5 [facility] Comment on above: Order Comment: Speci men Type: BLOOD SPECIMENOrdering Facility: [facility] Address: [address] [place] [address] Performed By: #### 5 7021-8 ####[facility] [id number] [place] [address] [place] Immature granulocytes (Bld) [#/Vol] 10*3/uL Normal <0.10 [facility] Comment on above: Order Comment: Speci men Type: BLOOD SPECIMENOrdering Facility: [facility] Address: [address] [place] [address] Performed By: #### 5 7021-8 ####[facility] LABIA [id number] [place] [address] [place] Immature granulocytes/100 WBC (Bld) 0.2 % Normal [facility] Comment on above: Order Comment: Speci men Type: BLOOD SPECIMENOrdering Facility: [facility] Address: [address] [place] [address] Performed By: #### 5 7021-8 ####[facility] LABCLIA [id number] [place] [address] [place] Lymphocytes (Bld) [#/Vol] 1.55 10*3/uL Normal 1.00-4.00 [facility] Comment on above: Order Comment: Speci men Type: BLOOD SPECIMENOrdering Facility: [facility] Address: [address] [place] [address] Performed By: #### 5 7021-8 ####[facility] LABCLIA [id number] [place] [address] [place] Lymphocytes/100 WBC (Bld) 27.3 % Normal [facility] Comment on above: Order Comment: Speci men Type: BLOOD SPECIMENOrdering Facility: [facility] Address: [address] [place] [address] Performed By: #### 5 7021-8 ####[facility] LABCLIA [id number] [place] [address] [place] MCH (RBC) [Entitic mass] 30.5 pg Normal 26.0-34.0 [facility] Comment on above: Order Comment: Speci men Type: BLOOD SPECIMENOrdering Facility: [facility] Address: [address] [place] [address] Performed By: #### 5 7021-8 ####[facility] LABIA [id number] [place] [address] [place] MCHC (RBC) [Mass/Vol] 31.0 g/dL Normal 30.5-36.0 [facility] Comment on above: Order Comment: Speci men Type: BLOOD SPECIMENOrdering Facility: [facility] Address: [address] [place] [address] Performed By: #### 5 7021-8 ####[facility] LABIA [id number] [place] [address] [place] MCV (RBC) [Entitic vol] 98.5 fL Normal 80.0-100.[address] [facility] Comment on above: Order Comment: Speci men Type: BLOOD SPECIMENOrdering Facility: [facility] Address: [address] [place] [address] Performed By: #### 5 7021-8 ####[facility] LABCLIA [id number] [place] [address] [place] Monocytes (Bld) [#/Vol] 0.61 10*3/uL Normal <0.87 [facility] Comment on above: Order Comment: Speci men Type: BLOOD SPECIMENOrdering Facility: [facility] Address: [address] [place] [address] Performed By: #### 5 7021-8 ####[facility] LABCLIA [id number] [place] [address] [place] Monocytes/100 WBC (Bld) 10.8 % Normal [facility] Comment on above: Order Comment: Speci men Type: BLOOD SPECIMENOrdering Facility: [facility] Address: [address] [place] [address] Performed By: #### 5 7021-8 ####[facility] LABCLIA [id number] [place] [address] [place] Neutrophils (Bld) [#/Vol] 3.12 10*3/uL Normal 1.45-7.50 [facility] Comment on above: Order Comment: Speci men Type: BLOOD SPECIMENOrdering Facility: [facility] Address: [address] [place] [address] Performed By: #### 5 7021-8 ####[facility] LABCLIA [id number] [place] [address] [place] Neutrophils/100 WBC (Bld) 55.0 % Normal [facility] Comment on above: Order Comment: Speci men Type: BLOOD SPECIMENOrdering Facility: [facility] Address: [address] [place] [address] Performed By: #### 5 7021-8 ####[facility] LABCLIA [id number] [place] [address] [place] Nucleated RBC (Bld) [#/Vol] 10*3/uL Normal <0.01 [facility] Comment on above: Order Comment: Speci men Type: BLOOD SPECIMENOrdering Facility: [facility] Address: [address] [place] [address] Performed By: #### 5 7021-8 ####[facility] LABCLIA [id number] [place] [address] [place] Nucleated RBC/100 WBC (Bld) [Ratio] 0.0 /100 WBC Normal [facility] Comment on above: Order Comment: Speci men Type: BLOOD SPECIMENOrdering Facility: [facility] Address: [address] [place] [address] Performed By: #### 5 7021-8 ####[facility] LABIA [id number] [place] [address] [place] Platelet mean volume (Bld) [Entitic vol] 10.3 fL Normal 9.0-12.7 [facility] Comment on above: Order Comment: Speci men Type: BLOOD SPECIMENOrdering Facility: [facility] Address: [address] [place] [address] Performed By: #### 5 7021-8 ####[facility] [id number] [place] [address] [place] Platelets (Bld) [#/Vol] 190 10*3/uL Normal 150-400 [facility] Comment on above: Order Comment: Speci men Type: BLOOD SPECIMENOrdering Facility: [facility] Address: [address] [place] [address] Performed By: #### 5 7021-8 ####[facility] [id number] [place] [address] [place] RBC (Bld) [#/Vol] 3.44 10*6/uL Low 3.90-5.20 [facility] Comment on above: Order Comment: Speci men Type: BLOOD SPECIMENOrdering Facility: [facility] Address: [address] [place] [address] Performed By: #### 5 7021-8 ####[facility] LABIA [id number] [place] [address] [place] WBC (Bld) [#/Vol] 5.67 10*3/uL Normal 3.70-11.00 [facility] Comment on above: Order Comment: Speci men Type: BLOOD SPECIMENOrdering Facility: [facility] Address: [address] [place] [address] Performed By: #### 5 7021-8 ####[facility] LABCLIA [id number] [id number] [id number] [facility] CNOVon 01-11-2024 CNOV Office Visit (INTMWS) REINIER ELIZABETH ([id number]) 1935 F NFR Date Time Provider Department 01/11/24 2:20 PM ANAY SCHULER INTMWS During your visit [...] an upcoming EGD by Dr. Collins the [employer]. Her brother calls her calls her every day, visits every Thursday. Has a decent flower bed. No problem-specific Assessment AND Plan notes found for this encounter. PAST MEDICAL HISTORY Diagnosis Date Acquired keratoderma Lichen sclerosis Anemia Anticoagulant long-term use indication: stroke prevention atrial fibrillation At risk for bleeding associated with anticoagulants HAS-BLED score = 2 (age, bleeding) At risk for stroke [id number] = 4 (HTN, age2, female gender) Benign [...] May. right eye Jun. left eye - [facility] [place] [facility] . Dr Gao REPAIR FIRST ABDOMINAL WALL [...] medications, allergies (more content not included)... Normal [facility] Basophil percentageOrdered B y: Dacia Sewell on 10-28-2023 Basophil percentage 2.3 mg/dL 2.5-4.9 [facility] Chloride [Moles/Vol] 113 mmol/L 98-107 [facility] Glucose [Mass/Vol] 95 mg/dL 74-106 [facility] Hemoglobin (Bld) [Mass/Vol] 9.7 g/dL 12.0-15.0 [facility] Potassium [Moles/Vol] 4.0 mmol/L 3.5-5.1 [facility] Sodium [Moles/Vol] 141 mmol/L 136-145 [facility] WBC (Bld) [#/Vol] 5.3 10*3/uL 4.4-11.0 [facility] Determination of erythrocyte mean corpuscular volume (MCV)Ordered By: Dacia Sewell on 10-28-2023 MCV (RBC) [Entitic vol] 95.9 fL 81-99 [facility] Erythrocyte distribution wid th ratioOrdered By: Dacia Sewell on 10-28-2023 Erythrocyte distribution width (RBC) [Ratio] 12.8 % 11.6-14.6 [facility] Erythrocyte distribution wid th standard deviationOrdered By: Dacia Sewell on 10-28-2023 Erythrocyte distribution width (RBC) [Entitic vol] 45.1 fL 35.1-43.9 [facility] Hematocrit Auto (Bld) [Volum e fraction]Ordered By: Dacia Sewell on 10-28-2023 Hematocrit (Bld) [Volume fraction] 30.5 % 37-47 [facility] Iron measurement (mass/mass) Ordered By: Dacia Sewell on 10-28-2023 Iron (Unsp spec) [Mass/Mass] 62 ug/dL 50-170 [facility] Laboratory - Chemistry and C hemistry - challengeOrdered By: Dacia Sewell on 10-28-2023 CO2 [Moles/Vol] 23.0 mmol/L 21.0-32.0 [facility] Ferritin [Mass/Vol] 41 ng/mL 8-252 [facility] Urea nitrogen/Creatinine [Mass ratio] 18.7 mg/mg 10-20 [facility] Laboratory - Hematology and Cell countsOrdered By: Dacia Sewell on 10-28-2023 MCH (RBC) [Entitic mass] 30.5 pg 27.0-32.0 [facility] MCHC (RBC) [Mass/Vol] 31.8 g/dL 32-36 [facility] Platelet mean volume (Bld) [Entitic vol] 10.2 fL 6.2-12.0 [facility] Platelets (Bld) [#/Vol] 185 10*3/uL 150-450 [facility] No Panel InformationOrdered By: Dacia Sewell on 10-28-2023 Estimated GFR (MDRD) Amer 48 mL/min >60 [facility] Comment on above: GFR Calc Estimated GFR (MDRD) Non-Af Amer 40 mL/min >60 [facility] Comment on above: Non- GFR Calc Total Iron Binding Capacity 262 ug/dL 250-450 [facility] RBC Auto (Bld) [#/Vol]Ordere d By: Dacia Sewell on 10-28-2023 RBC (Bld) [#/Vol] 3.18 10*6/uL 4.2-5.4 [facility] Serum or plasma calcium dex urement (mass/volume)Ordered By: Dacia Sewell on 10-28-2023 Calcium [Mass/Vol] 8.6 mg/dL 8.5-10.1 [facility] Serum or plasma creatinine m easurement (mass/volume)Ordered By: Dacia Sewell on 10-28-2023 Creatinine [Mass/Vol] 1.34 mg/dL 0.55-1.02 [facility] Comment on above: The validity of the calculated GFR & GFRAA in patients over 70 years has not been determined. Clinical correlation is essential. Serum or plasma urea nitroge n measurement (mass/volume)Ordered By: Dacia Sewell on 10-28-2023 Urea nitrogen [Mass/Vol] 25 mg/dL 7-18 [facility] Thin prep Papanicolaou smear with manual screeningOrdered By: Dacia Sewell on 10-28-2023 Thin prep Papanicolaou smear with manual screening 3.6 g/dL 3.2-5.0 [facility] Culture, urineOrdered By: Julia Sewell on 08-20-2023 Bacteria identified Cx Nom (U) Culture exhibits no growth. [facility] Bacteria identified Cx Nom (U) Culture exhibits no growth. [facility] CBC W Auto Differential pane l (Bld)on 08-18-2023 Basophils (Bld) [#/Vol] 0.07 10*3/uL <0.11 k/uL [facility] Basophils/100 WBC (Bld) 1.2 % [facility] Differential cell count method Nom (Bld) Auto [facility] Eosinophils (Bld) [#/Vol] 0.36 10*3/uL <0.46 k/uL [facility] Eosinophils/100 WBC (Bld) 6.4 % [facility] Erythrocyte distribution width (RBC) [Ratio] 13.3 % 11.5 - 15.0 % [facility] Hematocrit (Bld) [Volume fraction] 32.1 % Low 36.0 - 46.0 % [facility] Hemoglobin (Bld) [Mass/Vol] 10.7 g/dL Low 11.5 - 15.5 g/dL [facility] Immature granulocytes (Bld) [#/Vol] <0.10 k/uL [facility] Immature granulocytes/100 WBC (Bld) 0.4 % [facility] Lymphocytes (Bld) [#/Vol] 1.71 10*3/uL 1.00 - 4.00 k/uL [facility] Lymphocytes/100 WBC (Bld) 30.3 % [facility] MCH (RBC) [Entitic mass] 32.7 pg 26. 0 - 34.0 pg [facility] MCHC (RBC) [Mass/Vol] 33.3 g/dL 30.5 - 36.0 g/dL [facility] MCV (RBC) [Entitic vol] 98.2 fL 80.0 - 100.0 fL [facility] Monocytes (Bld) [#/Vol] 0.54 10*3/uL <0.87 k/uL [facility] Monocytes/100 WBC (Bld) 9.6 % [facility] Neutrophils (Bld) [#/Vol] 2.95 10*3/uL 1.45 - 7.50 k/uL [facility] Neutrophils/100 WBC (Bld) 52.1 % [facility] Nucleated RBC (Bld) [#/Vol] <0.01 k/uL [facility] Nucleated RBC/100 WBC (Bld) [Ratio] 0.0 /100 WBC [facility] Platelet mean volume (Bld) [Entitic vol] 10.1 fL 9.0 - 12.7 fL [facility] Platelets (Bld) [#/Vol] 208 10*3/uL 150 - 400 k/uL [facility] RBC (Bld) [#/Vol] 3.27 10*6/uL Low 3.90 - 5.2 0 m/uL [facility] WBC (Bld) [#/Vol] 5.65 10*3/uL 3.70 - 11. 00 k/uL [facility] Renal function 2000 panelon 08-18-2023 Albumin [Mass/Vol] 4.0 g/dL 3.9 - 4.9 g/dL [facility] Anion gap [Moles/Vol] 8 mmol/L Low 9 - 18 mmol/L [facility] Calcium [Mass/Vol] 9.0 mg/dL 8.5 - 10. 2 mg/dL [facility] Chloride [Moles/Vol] 110 mmol/L High 97 - 10 5 mmol/L [facility] CO2 [Moles/Vol] 24 mmol/L 22 - 30 mmol/L [facility] Creatinine [Mass/Vol] 1.47 mg/dL High 0.58 - 0.96 mg/dL [facility] Estimated Glomerular Filtration Rate 35 mL/min/1.73m Low >=60 mL/min/1.73m [facility] Glucose [Mass/Vol] 84 mg/dL 74 - 99 mg/dL [facility] Phosphate [Mass/Vol] 2.9 mg/dL 2.7 - 4 .8 mg/dL [facility] Potassium [Moles/Vol] 4.7 mmol/L 3.7 - 5.1 mmol/L [facility] Sodium [Moles/Vol] 142 mmol/L 136 - 144 mmol/L [facility] Urea nitrogen [Mass/Vol] 26 mg/dL High 7 - 21 mg/d L [facility] T4 FREE/FREE THYROXon 2023 Free T4 [Mass/Vol] 1.4 ng/dL 0.9 - 1.7 ng/dL [facility] TSH BLDon 08-18-2023 TSH Qn 2.100 m[IU]/L 0.270 - 4.200 mIU/L [facility] Absolute lymphocyte countOrd ered By: Nirav Cain on 07-16-2023 Lymphocytes Auto (Unsp spec) [#/Vol] 1.20 10*3/uL 0.83-4.51 [facility] Automated lymphocyte count a s percentage of total leukocytesOrdered By: Nirav Cain on 07-16-2023 Lymphocytes/100 WBC Auto (Unsp spec) 18.8 % 19-41 [facility] Basophil percentageOrdered B y: Nirav Cain on 07-16-2023 Hemoglobin (Bld) [Mass/Vol] 9.1 g/dL 12.0-15.0 [facility] Basophils/100 WBC (Bld) 0.9 % 0-1 [facility] Chloride [Moles/Vol] 112 mmol/L 98-107 [facility] Eosinophils/100 WBC (Bld) 13.1 % 0-5 [facility] Glucose [Mass/Vol] 107 mg/dL 74-106 [facility] Comment on above: Fasting Glucose resu lt from 100 to 125 mg/dL suggests IMPAIRED HOMEOSTASIS per A.D.A. criteria. Monocytes/100 WBC (Bld) 8.3 % 0-10 [facility] Neutrophils (Bld) [#/Vol] 3.7 10*3/uL 2.0-7.7 [facility] Neutrophils/100 WBC (Bld) 58.6 % 47-70 [facility] Potassium [Moles/Vol] 3.9 mmol/L 3.5-5.1 [facility] Sodium [Moles/Vol] 141 mmol/L 136-145 [facility] WBC (Bld) [#/Vol] 6.4 10*3/uL 4.4-11.0 [facility] Determination of erythrocyte mean corpuscular volume (MCV)Ordered By: Nirav Cain on 07-16-2023 MCV (RBC) [Entitic vol] 96.5 fL 81-99 [facility] Erythrocyte distribution wid th ratioOrdered By: Nirav Cain on 07-16-2023 Erythrocyte distribution width (RBC) [Ratio] 12.7 % 11.6-14.6 [facility] Erythrocyte distribution wid th standard deviationOrdered By: Nirav Cain on 07-16-2023 Erythrocyte distribution width (RBC) [Entitic vol] 44.6 fL 35.1-43.9 [facility] Hematocrit Auto (Bld) [Volum e fraction]Ordered By: Nirav Cain on 07-16-2023 Hematocrit (Bld) [Volume fraction] 28.1 % 37-47 [facility] Immature granulocytes/100 WB C Auto (Bld)Ordered By: Nirav Cain on 07-16-2023 Immature granulocytes/100 WBC (Bld) 0.300 % 0.0-0.9 [facility] Comment on above: IG% - Immature Granu locytes (promyelocytes, myelocytes and metamyelocytes) > 1% indicates that a LEFT SHIFT is Present. Iron measurement (mass/mass) Ordered By: Nirav Cain on 07-16-2023 Iron (Unsp spec) [Mass/Mass] 27 ug/dL 50-170 [facility] Laboratory - Chemistry and C hemistry - challengeOrdered By: Nirav Cain on 07-16-2023 CO2 [Moles/Vol] 25.0 mmol/L 21.0-32.0 [facility] Ferritin [Mass/Vol] 142 ng/mL 8-252 [facility] Urea nitrogen/Creatinine [Mass ratio] 18.3 mg/mg 10-20 [facility] Laboratory - Hematology and Cell countsOrdered By: Nirav Cain on 07-16-2023 MCH (RBC) [Entitic mass] 30.9 pg 27.0-32.0 [facility] MCHC (RBC) [Mass/Vol] 32.0 g/dL 32-36 [facility] Nucleated RBC/100 WBC (Bld) [Ratio] 0 % 0-5 [facility] Platelets (Bld) [#/Vol] 114 10*3/uL 150-450 [facility] No Panel InformationOrdered By: Nirav Cain on 07-16-2023 Estimated Creatinine Clearance Calc 18.93 ml/min [facility] Estimated GFR (MDRD) Amer 33 mL/min >60 [facility] Comment on above: GFR Calc Estimated GFR (MDRD) Non-Af Amer 27 mL/min >60 [facility] Comment on above: Non- GFR Calc Total Iron Binding Capacity 190 ug/dL 250-450 [facility] Platelet mean volume Zack-Ec ker (Bld) [Entitic vol]Ordered By: Nirav Cain on 07-16-2023 Platelet mean volume (Bld) [Entitic vol] 9.3 fL 6.2-12.0 [facility] RBC Auto (Bld) [#/Vol]Ordere d By: Nirav Cain on 07-16-2023 RBC (Bld) [#/Vol] 2.59 10*6/uL 4.2-5.4 [facility] Serum or plasma calcium dex urement (mass/volume)Ordered By: Nirav Cain on 07-16-2023 Calcium [Mass/Vol] 8.8 mg/dL 8.5-10.1 [facility] Serum or plasma creatinine m easurement (mass/volume)Ordered By: Nirav Cain on 07-16-2023 Creatinine [Mass/Vol] 1.86 mg/dL 0.55-1.02 [facility] Comment on above: The validity of the calculated GFR & GFRAA in patients over 70 years has not been determined. Clinical correlation is essential. Serum or plasma iron saturat ion measurement (mass fraction)Ordered By: Nirav Cain on 07-16-2023 Iron saturation [Mass fraction] 14.2 % 15.0-55.0 [facility] Serum or plasma urea nitroge n measurement (mass/volume)Ordered By: Nirav Cain on 07-16-2023 Urea nitrogen [Mass/Vol] 34 mg/dL 7-18 [facility] Thin prep Papanicolaou smear with manual screeningOrdered By: Nirav Cain on 07-16-2023 Thin prep Papanicolaou smear with manual screening 4 5-15 [facility] Basophil percentageOrdered B y: Akosua Sewell on 07-14-2023 Basophil percentage 4.0 mg/dL 2.5-4.9 [facility] Bilirubin [Mass/Vol] 0.80 mg/dL 0.20-1.00 [facility] Comment on above: For patients on eltr ombopag therapy, use of Dimension [place] TBIL is not recommended. Protein [Mass/Vol] 6.4 g/dL 6.4-8.2 [facility] Laboratory - Chemistry and C hemistry - challengeOrdered By: Akosua Sewell on 07-14-2023 ALP [Catalytic activity/Vol] 49 U/L 45-117 [facility] ALT [Catalytic activity/Vol] 23 U/L 13-56 [facility] Globulin (S) [Mass/Vol] 3.4 g/dL 2.2-4.2 [facility] Magnesium [Mass/Vol] 1.7 mg/dL 1.6-2.6 [facility] No Panel InformationOrdered By: Akosua Sewell on 07-14-2023 Thyroid Stimulating Hormone (TSH) 0.65 uIU/mL 0.358-3.74 [facility] Serum or plasma albumin dex urement (mass/volume)Ordered By: Akosua Sewell on 07-14-2023 Albumin [Mass/Vol] 3.0 g/dL 3.2-5.0 [facility] Serum or plasma albumin/glob ulin mass ratioOrdered By: Akosua Sewell on 07-14-2023 Albumin/Globulin [Mass ratio] 0.9 {ratio} 0.9-2.4 [facility] Thin prep Papanicolaou smear with manual screeningOrdered By: Akosua Sewell on 07-14-2023 Thin prep Papanicolaou smear with manual screening 20 U/L 15-37 [facility] Absolute lymphocyte countOrd ered By: Pili Chris on 07-13-2023 Lymphocytes Auto (Unsp spec) [#/Vol] 1.52 10*3/uL 0.83-4.51 [facility] Basophil percentageOrdered B y: Pili Chris on 07-13-2023 Basophil percentage 25-50 SEEN /hpf 0-5 [facility] Basophils/100 WBC (Bld) 0.4 % 0-1 [facility] Chloride [Moles/Vol] 112 mmol/L 98-107 [facility] Eosinophils/100 WBC (Bld) 2.6 % 0-5 [facility] Glucose [Mass/Vol] 165 mg/dL 74-106 [facility] Comment on above: Fasting Glucose resu lt greater than or equal to 126 mg/dL suggests DIABETES MELLITUS per A.D.A. criteria. Neutrophils (Bld) [#/Vol] 3.3 10*3/uL 2.0-7.7 [facility] Neutrophils/100 WBC (Bld) 62.0 % 47-70 [facility] Potassium [Moles/Vol] 3.8 mmol/L 3.5-5.1 [facility] Sodium [Moles/Vol] 142 mmol/L 136-145 [facility] WBC (Bld) [#/Vol] 5.4 10*3/uL 4.4-11.0 [facility] Bilirubin Test strip Ql (U)O rdered By: Pili Chris on 07-13-2023 Bilirubin Ql (U) Negative Negative [facility] Blood erythrocytes count (nu mber/volume)Ordered By: Pili Chris on 07-13-2023 RBC (Bld) [#/Vol] 3.21 10*6/uL 4.2-5.4 [facility] Blood hemoglobin measurement (mass/volume)Ordered By: Pili Chris on 07-13-2023 Hemoglobin (Bld) [Mass/Vol] 10.0 g/dL 12.0-15.0 [facility] Blood lymphocytes/100 leukoc ytesOrdered By: Pili Chris on 07-13-2023 Lymphocytes/100 WBC (Bld) 28.3 % 19-41 [facility] Blood monocytes/100 leukocyt esOrdered By: Pili Chris on 07-13-2023 Monocytes/100 WBC (Bld) 6.3 % 0-10 [facility] Blood platelet mean volumeOr dered By: Pili Chris on 07-13-2023 Platelet mean volume (Bld) [Entitic vol] 9.6 fL 6.2-12.0 [facility] Culture, urineOrdered By: Pretty Chris on 07-13-2023 Bacteria identified Cx Nom (U) Presumptive E. coli [facility] Bacteria identified Cx Nom (U) Presumptive E. coli [facility] Determination of erythrocyte mean corpuscular volume (MCV)Ordered By: Pili Chris on 07-13-2023 MCV (RBC) [Entitic vol] 96.3 fL 81-99 [facility] Hematocrit Auto (Bld) [Volum e fraction]Ordered By: Pili Chris on 07-13-2023 Hematocrit (Bld) [Volume fraction] 30.9 % 37-47 [facility] Ketones Test strip Ql (U)Ord ered By: Pili Chris on 07-13-2023 Ketones Ql (U) Negative Negative [facility] Laboratory - Chemistry and C hemistry - challengeOrdered By: Pili Chris on 07-13-2023 CO2 [Moles/Vol] 24.0 mmol/L 21.0-32.0 [facility] Urea nitrogen/Creatinine [Mass ratio] 17.1 mg/mg 10-20 [facility] Laboratory - Chemistry and C hemistry - challengeOrdered By: Akosua Sewell on 07-13-2023 Natriuretic peptide B (Bld) [Mass/Vol] 217.9 pg/mL 0-100 [facility] Laboratory - Hematology and Cell countsOrdered By: Pili Chris on 07-13-2023 Erythrocyte distribution width (RBC) [Entitic vol] 43.3 fL 35.1-43.9 [facility] Erythrocyte distribution width (RBC) [Ratio] 12.4 % 11.6-14.6 [facility] Immature granulocytes/100 WBC (Bld) 0.400 % 0.0-0.9 [facility] Comment on above: IG% - Immature Granu locytes (promyelocytes, myelocytes and metamyelocytes) > 1% indicates that a LEFT SHIFT is Present. MCH (RBC) [Entitic mass] 31.2 pg 27.0-32.0 [facility] Nucleated RBC/100 WBC (Bld) [Ratio] 0 % 0-5 [facility] Laboratory - Microbiology an d Antimicrobial susceptibilityOrdered By: Pili Chris on 07-13-2023 SARS-CoV-2 (COVID-19) RNA GUERA+probe Ql (Unsp spec) [facility] MCHC Auto (RBC) [Mass/Vol]Or dered By: Pili Chris on 07-13-2023 MCHC (RBC) [Mass/Vol] 32.4 g/dL 32-36 [facility] Mucus LM Ql (Urine sed)Order ed By: Pili Chris on 07-13-2023 Mucus Ql (Urine sed) 0 SEEN /hpf [facility] Nitrite Test strip Ql (U)Ord ered By: Pili Chris on 07-13-2023 Nitrite Ql (U) Positive Negative [facility] No Panel InformationOrdered By: Akosua Sewell on 07-13-2023 Troponin I High Sensitivity 136 pg/mL 3.0-54.0 [facility] Comment on above: Critical Result(s) C alled at: 18:44:03 07/13/2023 by: JAKE MCKEON to jasiel javier rn pcu Results read back by same. Please Note: New Test Units and Gender Specific Reference Ranges. For more information see Policy Stat Procedure [place] High Sensitivity Troponin (TNIH) and attachments. No Panel InformationOrdered By: Pili Chris on 07-13-2023 Troponin I High Sensitivity 119 pg/mL 3.0-54.0 [facility] Comment on above: Please Note: New [place] t Units and Gender Specific Reference Ranges. For more information see Policy Stat Procedure [place] High Sensitivity Troponin (TNIH) and attachments. Estimated GFR (MDRD) Amer 37 mL/min >60 [facility] Comment on above: GFR Calc Estimated GFR (MDRD) Non-Af Amer 30 mL/min >60 [facility] Comment on above: Non- GFR Calc Platelets bldOrdered By: Natalee Chris on 07-13-2023 Platelets (Bld) [#/Vol] 179 10*3/uL 150-450 [facility] Protein Test strip Ql (U)Ord ered By: Pili Chris on 07-13-2023 Protein Ql (U) 30 mg/dl Negative [facility] Respiratory pathogens detect ion panel by molecular detection methodOrdered By: Akosua Sewell on 07-13-2023 Respiratory pathogens DNA and RNA panel GUERA+probe (Resp) [facility] Respiratory pathogens DNA and RNA panel GUERA+probe (Resp) [facility] Serum or plasma calcium dex urement (mass/volume)Ordered By: Pili Chris on 07-13-2023 Calcium [Mass/Vol] 8.8 mg/dL 8.5-10.1 [facility] Serum or plasma creatinine m easurement (mass/volume)Ordered By: Pili Chris on 07-13-2023 Creatinine [Mass/Vol] 1.70 mg/dL 0.55-1.02 [facility] Comment on above: The validity of the calculated GFR & GFRAA in patients over 70 years has not been determined. Clinical correlation is essential. Serum or plasma urea nitroge n measurement (mass/volume)Ordered By: Pili Chris on 07-13-2023 Urea nitrogen [Mass/Vol] 29 mg/dL 7-18 [facility] Squamous epithelial cells de tection in urine sediment by light microscopyOrdered By: Pili Chris on 07-13-2023 Epithelial cells.squamous LM Ql (Urine sed) 0-5 SEEN /hpf 5-10 [facility] Thin prep Papanicolaou smear with manual screeningOrdered By: Pili Chris on 07-13-2023 Thin prep Papanicolaou smear with manual screening 6 -15 [facility] Urine blood detectionOrdered By: Pili Chris on 07-13-2023 RBC Ql (U) 10 /ul Negative [facility] RBC Ql (U) 0-5 SEEN /hpf 0-5 [facility] Urine clarityOrdered By: Natalee Chris on 07-13-2023 Clarity (U) Sl. Cloudy Clear [facility] Urine color determinationOrd ered By: Pili Chris on 07-13-2023 Color (U) Yellow Yellow [facility] Urine glucose detectionOrder ed By: Pili Chris on 07-13-2023 Glucose Ql (U) Normal mg/dl Normal [facility] Urine leukocyte esterase det ection by dipstickOrdered By: Pili Chris on 07-13-2023 Leukocyte esterase Test strip Ql (U) 100 /ul Negative [facility] Urine pHOrdered By: Pili gentile on 07-13-2023 pH (U) 5.0 [pH] 5.0 - 8.0 [facility] Urine sediment bacteria coun t by microscopy (number/high power field)Ordered By: Pili Chris on 07-13-2023 Bacteria LM.HPF (Urine sed) [#/Area] 3 /[HPF] None Seen [facility] Urine specific gravity measu rementOrdered By: Pili Chris on 07-13-2023 Specific gravity (U) [Rel density] 1.020 1.002-1.030 [facility] Urobilinogen Auto test strip Ql (U)Ordered By: Pili Chris on 07-13-2023 Urobilinogen Ql (U) Normal mg/dl Normal [facility] Whole blood hemoglobin A1c/t otal hemoglobin ratio (mass fraction)Ordered By: Akosua Sewell on 07-13-2023 HbA1c (Bld) [Mass fraction] 5.1 % 3.8-5.6 [facility] Comment on above: Normal < 5.7 % Predi abetic 5.7 - 6.4 % Diabetic >or= 6.5 % Please note range changes. XR Thoracic spine AP and Lat eral and Swimmerson 04-13-2023 IMPRESSION: No acute radiographic abnormality. Degenerative changes. Welder Machine Operator: CANDY Transcribe Date/Time: Apr 13 2023 11:44A Dictated by : JUANITO PEREA DO This examination was interpreted and the report reviewed and electronically signed by: JUANITO PEREA DO on Apr 13 2023 11:48AM [facility] DIVISION OF RADIOLOGY * * *Final [...] adjacent subsegmental atelectasis. DIVISION OF RADIOLOGY Provider, [facility] - 04/13/2023 * * *Final Report* * [...] IMPRESSION: No acute radiographic abnormality. Degenerative changes. Welder Machine Operator: PSCB Transcribe Date/Time: Apr 13 2023 11:44A Dictated by : JUANITO PEREA DO This examination was interpreted and the report reviewed and electronically signed by: JUANITO PEREA DO on Apr 13 2023 11:48AM EST [facility] XR Thoracic spine AP and Lat eral and SwimmersOrdered By: Ccf Provider on 04-13-2023 [facility] HbA1c (Bld)on 04-10-2023 Average glucose Estimated from glycated hemoglobin (Bld) [Mass/Vol] 105 mg/dL [facility] HbA1c (Bld) [Mass fraction] 5.3 % 4.3 - 5.6 % [facility] TSH BLDon 04-10-2023 TSH Qn 1.520 m[IU]/L 0.270 - 4.200 mIU/L [facility] VITAMIN D 25 HYDROXYon 04-09 25-hydroxyvitamin D3 [Mass/Vol] 33.0 ng/mL 31.0 - 80.0 ng/mL [facility] XR THORACIC GENERAL 3V AP/LA T/SWIMMERSon 04-09-2023 [facility] XR Thoracic spine AP and Lat eral and Swimmerson 04-09-2023 [facility] Basophil percentageOrdered B y: Dacia Sewell on 04-07-2023 Basophil percentage 2.7 mg/dL 2.5-4.9 [facility] Chloride [Moles/Vol] 116 mmol/L 98-107 [facility] Glucose [Mass/Vol] 108 mg/dL 74-106 [facility] Comment on above: Fasting Glucose resu lt from 100 to 125 mg/dL suggests IMPAIRED HOMEOSTASIS per A.D.A. criteria. Potassium [Moles/Vol] 4.3 mmol/L 3.5-5.1 [facility] Sodium [Moles/Vol] 143 mmol/L 136-145 [facility] Blood hemoglobin measurement (mass/volume)Ordered By: Dacia Sewlel on 04-07-2023 Hemoglobin (Bld) [Mass/Vol] 10.9 g/dL 12.0-15.0 [facility] Hematocrit Auto (Bld) [Volum e fraction]Ordered By: Dacia Sewell on 04-07-2023 Hematocrit (Bld) [Volume fraction] 32.3 % 37-47 [facility] Laboratory - Chemistry and C hemistry - challengeOrdered By: Dacia Sewell on 04-07-2023 CO2 [Moles/Vol] 21.0 mmol/L 21.0-32.0 [facility] Urea nitrogen/Creatinine [Mass ratio] 19.6 mg/mg 10 [facility] No Panel InformationOrdered By: Dacia Sewell on 04-07-2023 Estimated GFR (MDRD) Amer 38 mL/min >60 [facility] Comment on above: GFR Calc Estimated GFR (MDRD) Non-Af Amer 32 mL/min >60 [facility] Comment on above: Non- GFR Calc Serum or plasma albumin dex urement (mass/volume)Ordered By: Dacia Sewell on 04-07-2023 Albumin [Mass/Vol] 3.4 g/dL 3.2-5.0 [facility] Serum or plasma calcium dex urement (mass/volume)Ordered By: Dacia Sewell on 04-07-2023 Calcium [Mass/Vol] 8.9 mg/dL 8.5-10.1 [facility] Serum or plasma creatinine m easurement (mass/volume)Ordered By: Dacia Sewell on 04-07-2023 Creatinine [Mass/Vol] 1.63 mg/dL 0.55-1.02 [facility] Comment on above: The validity of the calculated GFR & GFRAA in patients over 70 years has not been determined. Clinical correlation is essential. Serum or plasma urea nitroge n measurement (mass/volume)Ordered By: Dacia Sewell on 04-07-2023 Urea nitrogen [Mass/Vol] 32 mg/dL 7-18 [facility] CNOVon 01-27-2023 CNOV Office Visit (AGCARDPOB) REINIER ELIZABETH ([id number]) 1935 F NFR Date Time Provider Department 01/27/23 3:20 PM MAURA GILES During your visit today, we recorded the following information about you: Pulse Respiration Blood pressure Weight 74/minute 18/minute 165/77 59.4 kg Height 1.575 m Allison Gaxiola MA 01/27/2023 3:31 PM Signed Patient denies any cardiac issues or symptoms. Maura Giles MD 02/02/2023 7:41 PM Signed PRIMARY CARE PHYSICIAN: Anay Schuler [address] [place] [address] REFERRING PHYSICIAN: Fredis Marie MD ([facility]) [address] [facility] [id number] Patient Care Team: Anay Schuler MD as PCP - General (Internal Medicine) Fredis Marie as Specialty Sack Repairer (Cardiology) Yuriy Collins DO as Specialty Sack Repairer (Gastroenterology) CHIEF COMPLAINT: Evaluation for stroke prevention HISTORY OF PRESENT ILLNESS: Ms. Elizabeth is a 87 year old female who presents today for evaluation, referred by [facility], accompanied today by her daughter. [...] - May. right eye left eye - [facility] . Dr Gao REPAIR FIRST ABDOMINAL [...] (K-TAB) 1 (more content not included)... Normal [facility] DXA-AXIAL SKELETONon 023 [facility] Basophil percentageOrdered B y: Dr. Sewell on 11-19-2022 Basophil percentage 2.8 mg/dL 2.5-4.9 [facility] Chloride [Moles/Vol] 112 mmol/L 98-107 [facility] Glucose [Mass/Vol] 100 mg/dL 74-106 [facility] Comment on above: Fasting Glucose resu lt from 100 to 125 mg/dL suggests IMPAIRED HOMEOSTASIS per A.D.A. criteria. Potassium [Moles/Vol] 3.9 mmol/L 3.5-5.1 [facility] Sodium [Moles/Vol] 140 mmol/L 136-145 [facility] Laboratory - Chemistry and C hemistry - challengeOrdered By: Dr. Sewell on 11-19-2022 CO2 [Moles/Vol] 17.0 mmol/L 21.0-32.0 [facility] Urea nitrogen/Creatinine [Mass ratio] 21.1 mg/mg 10-20 [facility] No Panel InformationOrdered By: Dr. Sewell on 11-19-2022 Estimated GFR (MDRD) Amer 42 mL/min >60 [facility] Comment on above: GFR Calc Estimated GFR (MDRD) Non-Af Amer 35 mL/min >60 [facility] Comment on above: Non- GFR Calc Serum or plasma albumin dex urement (mass/volume)Ordered By: Dr. Sewell on 11-19-2022 Albumin [Mass/Vol] 3.5 g/dL 3.2-5.0 [facility] Serum or plasma calcium dex urement (mass/volume)Ordered By: Dr. Sewell on 11-19-2022 Calcium [Mass/Vol] 8.6 mg/dL 8.5-10.1 [facility] Serum or plasma creatinine m easurement (mass/volume)Ordered By: Dr. Sewell on 11-19-2022 Creatinine [Mass/Vol] 1.52 mg/dL 0.55-1.02 [facility] Comment on above: The validity of the calculated GFR & GFRAA in patients over 70 years has not been determined. Clinical correlation is essential. Serum or plasma urea nitroge n measurement (mass/volume)Ordered By: Dr. Sewell on 11-19-2022 Urea nitrogen [Mass/Vol] 32 mg/dL 7-18 [facility] Absolute lymphocyte countOrd ered By: Celeste Bell on 11-10-2022 Lymphocytes Auto (Unsp spec) [#/Vol] 1.91 10*3/uL 0.83-4.51 [facility] Basophil percentageOrdered B y: Celeste Bell on 11-10-2022 Basophils/100 WBC (Bld) 0.8 % 0-1 [facility] Eosinophils/100 WBC (Bld) 5.2 % 0-5 [facility] Neutrophils (Bld) [#/Vol] 3.3 10*3/uL 2.0-7.7 [facility] Neutrophils/100 WBC (Bld) 53.3 % 47-70 [facility] WBC (Bld) [#/Vol] 6.2 10*3/uL 4.4-11.0 [facility] Blood erythrocytes count (nu mber/volume)Ordered By: Celeste Bell on 11-10-2022 RBC (Bld) [#/Vol] 3.57 10*6/uL 4.2-5.4 [facility] Blood hemoglobin measurement (mass/volume)Ordered By: Celeste Bell on 11-10-2022 Hemoglobin (Bld) [Mass/Vol] 11.1 g/dL 12.0-15.0 [facility] Blood lymphocytes/100 leukoc ytesOrdered By: Celeste Bell on 11-10-2022 Lymphocytes/100 WBC (Bld) 31.1 % 19-41 [facility] Blood monocytes/100 leukocyt esOrdered By: Celeste Bell on 11-10-2022 Monocytes/100 WBC (Bld) 9.4 % 0-10 [facility] Blood platelet mean volumeOr dered By: Celeste Bell on 11-10-2022 Platelet mean volume (Bld) [Entitic vol] 10.3 fL 6.2-12.0 [facility] Determination of erythrocyte mean corpuscular volume (MCV)Ordered By: Celeste Bell on 11-10-2022 MCV (RBC) [Entitic vol] 97.8 fL 81-99 [facility] Hematocrit Auto (Bld) [Volum e fraction]Ordered By: Celeste Bell on 11-10-2022 Hematocrit (Bld) [Volume fraction] 34.9 % 37-47 [facility] Laboratory - Hematology and Cell countsOrdered By: Celeste Bell on 11-10-2022 Erythrocyte distribution width (RBC) [Entitic vol] 44.7 fL 35.1-43.9 [facility] Erythrocyte distribution width (RBC) [Ratio] 12.5 % 11.6-14.6 [facility] Immature granulocytes/100 WBC (Bld) 0.200 % 0.0-0.9 [facility] Comment on above: IG% - Immature Granu locytes (promyelocytes, myelocytes and metamyelocytes) > 1% indicates that a LEFT SHIFT is Present. MCH (RBC) [Entitic mass] 31.1 pg 27.0-32.0 [facility] Nucleated RBC/100 WBC (Bld) [Ratio] 0 % 0-5 [facility] MCHC Auto (RBC) [Mass/Vol]Or dered By: Celeste Bell on 11-10-2022 MCHC (RBC) [Mass/Vol] 31.8 g/dL 32-36 [facility] Platelets bldOrdered By: Linda Bell on 11-10-2022 Platelets (Bld) [#/Vol] 190 10*3/uL 150-450 [facility] Absolute lymphocyte countOrd ered By: Dr. Sewell on 09-15-2022 Lymphocytes Auto (Unsp spec) [#/Vol] 1.42 10*3/uL 0.83-4.51 [facility] Basophil percentageOrdered B y: Dr. Schuler on 09-15-2022 Bilirubin [Mass/Vol] 0.70 mg/dL 0.20-1.00 [facility] Comment on above: For patients on eltr ombopag therapy, use of Dimension [place] TBIL is not recommended. Chloride [Moles/Vol] 113 mmol/L 98-107 [facility] Glucose [Mass/Vol] 97 mg/dL 74-106 [facility] Potassium [Moles/Vol] 3.8 mmol/L 3.5-5.1 [facility] Protein [Mass/Vol] 7.2 g/dL 6.4-8.2 [facility] Sodium [Moles/Vol] 144 mmol/L 136-145 [facility] Basophil percentageOrdered B y: Dr. Sewell on 09-15-2022 Basophil percentage 3.0 mg/dL 2.5-4.9 [facility] Basophils/100 WBC (Bld) 0.7 % 0-1 [facility] Eosinophils/100 WBC (Bld) 3.3 % 0-5 [facility] Neutrophils (Bld) [#/Vol] 4.5 10*3/uL 2.0-7.7 [facility] Neutrophils/100 WBC (Bld) 66.3 % 47-70 [facility] WBC (Bld) [#/Vol] 6.7 10*3/uL 4.4-11.0 [facility] Blood erythrocytes count (nu mber/volume)Ordered By: Dr. Sewell on 09-15-2022 RBC (Bld) [#/Vol] 3.10 10*6/uL 4.2-5.4 [facility] Blood hemoglobin measurement (mass/volume)Ordered By: Dr. Sewell on 09-15-2022 Hemoglobin (Bld) [Mass/Vol] 9.8 g/dL 12.0-15.0 [facility] Blood lymphocytes/100 leukoc ytesOrdered By: Dr. Sewell on 09-15-2022 Lymphocytes/100 WBC (Bld) 21.1 % 19-41 [facility] Blood monocytes/100 leukocyt esOrdered By: Dr. Sewell on 09-15-2022 Monocytes/100 WBC (Bld) 8.5 % 0-10 [facility] Blood platelet mean volumeOr dered By: Dr. Sewell on 09-15-2022 Platelet mean volume (Bld) [Entitic vol] 11.7 fL 6.2-12.0 [facility] Determination of erythrocyte mean corpuscular volume (MCV)Ordered By: Dr. Sewell on 09-15-2022 MCV (RBC) [Entitic vol] 99.0 fL 81-99 [facility] Hematocrit Auto (Bld) [Volum e fraction]Ordered By: Dr. Sewell on 09-15-2022 Hematocrit (Bld) [Volume fraction] 30.7 % 37-47 [facility] Laboratory - Chemistry and C hemistry - challengeOrdered By: Dr. Schuler on 09-15-2022 ALP [Catalytic activity/Vol] 63 U/L 45-117 [facility] ALT [Catalytic activity/Vol] 37 U/L 13-56 [facility] CO2 [Moles/Vol] 24.0 mmol/L 21.0-32.0 [facility] Globulin (S) [Mass/Vol] 3.6 g/dL 2.2-4.2 [facility] Urea nitrogen/Creatinine [Mass ratio] 17.6 mg/mg 10-20 [facility] Laboratory - Hematology and Cell countsOrdered By: Dr. Sewell on 09-15-2022 Erythrocyte distribution width (RBC) [Entitic vol] 49.6 fL 35.1-43.9 [facility] Erythrocyte distribution width (RBC) [Ratio] 13.6 % 11.6-14.6 [facility] Immature granulocytes/100 WBC (Bld) 0.100 % 0.0-0.9 [facility] Comment on above: IG% - Immature Granu locytes (promyelocytes, myelocytes and metamyelocytes) > 1% indicates that a LEFT SHIFT is Present. MCH (RBC) [Entitic mass] 32.3 pg 27.0-32.0 [facility] Nucleated RBC/100 WBC (Bld) [Ratio] 0 % 0-5 [facility] MCHC Auto (RBC) [Mass/Vol]Or dered By: Dr. Sewell on 09-15-2022 MCHC (RBC) [Mass/Vol] 32.6 g/dL 32-36 [facility] No Panel InformationOrdered By: Dr. Schuler on 09-15-2022 Estimated GFR (MDRD) Amer 40 mL/min >60 [facility] Comment on above: GFR Calc Estimated GFR (MDRD) Non-Af Amer 33 mL/min >60 [facility] Comment on above: Non- GFR Calc Thyroid Stimulating Hormone (TSH) 2.10 uIU/mL 0.358-3.74 [facility] Platelets bldOrdered By: Dr. Sewell on 09-15-2022 Platelets (Bld) [#/Vol] 184 10*3/uL 150-450 [facility] Serum or plasma albumin dex urement (mass/volume)Ordered By: Dr. Schuler on 09-15-2022 Albumin [Mass/Vol] 3.6 g/dL 3.2-5.0 [facility] Serum or plasma albumin/glob ulin mass ratioOrdered By: Dr. Schuler on 09-15-2022 Albumin/Globulin [Mass ratio] 1.0 {ratio} 0.9-2.4 [facility] Serum or plasma calcium dex urement (mass/volume)Ordered By: Dr. Schuler on 09-15-2022 Calcium [Mass/Vol] 8.9 mg/dL 8.5-10.1 [facility] Serum or plasma creatinine m easurement (mass/volume)Ordered By: Dr. Schuler on 09-15-2022 Creatinine [Mass/Vol] 1.59 mg/dL 0.55-1.02 [facility] Comment on above: The validity of the calculated GFR & GFRAA in patients over 70 years has not been determined. Clinical correlation is essential. Serum or plasma urea nitroge n measurement (mass/volume)Ordered By: Dr. Schuler on 09-15-2022 Urea nitrogen [Mass/Vol] 28 mg/dL 7-18 [facility] Thin prep Papanicolaou smear with manual screeningOrdered By: Dr. Schuler on 09-15-2022 Thin prep Papanicolaou smear with manual screening 29 U/L 15-37 [facility] Thin prep Papanicolaou smear with manual screening 7 5-15 [facility] Basophil percentageOrdered B y: Dr. Sewell on 07-22-2022 Basophil percentage 3.3 mg/dL 2.5-4.9 [facility] Chloride [Moles/Vol] 112 mmol/L 98-107 [facility] Glucose [Mass/Vol] 96 mg/dL 74-106 [facility] Potassium [Moles/Vol] 4.4 mmol/L 3.5-5.1 [facility] Sodium [Moles/Vol] 142 mmol/L 136-145 [facility] Laboratory - Chemistry and C hemistry - challengeOrdered By: Dr. Sewell on 07-22-2022 CO2 [Moles/Vol] 23.0 mmol/L 21.0-32.0 [facility] Urea nitrogen/Creatinine [Mass ratio] 16.5 mg/mg 10-20 [facility] No Panel InformationOrdered By: Dr. Sewell on 07-22-2022 Estimated GFR (MDRD) Amer 51 mL/min >60 [facility] Comment on above: GFR Calc Estimated GFR (MDRD) Non-Af Amer 42 mL/min >60 [facility] Comment on above: Non- GFR Calc Serum or plasma albumin dex urement (mass/volume)Ordered By: Dr. Sewell on 07-22-2022 Albumin [Mass/Vol] 3.8 g/dL 3.2-5.0 [facility] Serum or plasma calcium dex urement (mass/volume)Ordered By: Dr. Sewell on 07-22-2022 Calcium [Mass/Vol] 9.4 mg/dL 8.5-10.1 [facility] Serum or plasma creatinine m easurement (mass/volume)Ordered By: Dr. Sewell on 07-22-2022 Creatinine [Mass/Vol] 1.27 mg/dL 0.55-1.02 [facility] Comment on above: The validity of the calculated GFR & GFRAA in patients over 70 years has not been determined. Clinical correlation is essential. Serum or plasma urea nitroge n measurement (mass/volume)Ordered By: Dr. Sewell on 07-22-2022 Urea nitrogen [Mass/Vol] 21 mg/dL -18 [facility] Basophil percentageOrdered B y: Dr. Frey on 07-16-2022 Chloride [Moles/Vol] 110 mmol/L 98-107 [facility] Glucose [Mass/Vol] 107 mg/dL 74-106 [facility] Comment on above: Fasting Glucose resu lt from 100 to 125 mg/dL suggests IMPAIRED HOMEOSTASIS per A.D.A. criteria. Potassium [Moles/Vol] 3.3 mmol/L 3.5-5.1 [facility] Sodium [Moles/Vol] 143 mmol/L 136-145 [facility] Laboratory - Chemistry and C hemistry - challengeOrdered By: Dr. Frey on 07-16-2022 CO2 [Moles/Vol] 27.0 mmol/L 21.0-32.0 [facility] Urea nitrogen/Creatinine [Mass ratio] 19.1 mg/mg 10-20 [facility] No Panel InformationOrdered By: Dr. Frey on 07-16-2022 Estimated GFR (MDRD) Amer 42 mL/min >60 [facility] Comment on above: GFR Calc Estimated GFR (MDRD) Non-Af Amer 35 mL/min >60 [facility] Comment on above: Non- GFR Calc Serum or plasma calcium dex urement (mass/volume)Ordered By: Dr. Frey on 07-16-2022 Calcium [Mass/Vol] 9.0 mg/dL 8.5-10.1 [facility] Serum or plasma creatinine m easurement (mass/volume)Ordered By: Dr. Frey on 07-16-2022 Creatinine [Mass/Vol] 1.52 mg/dL 0.55-1.02 [facility] Comment on above: The validity of the calculated GFR & GFRAA in patients over 70 years has not been determined. Clinical correlation is essential. Serum or plasma urea nitroge n measurement (mass/volume)Ordered By: Dr. Frey on 07-16-2022 Urea nitrogen [Mass/Vol] 29 mg/dL 7-18 [facility] Thin prep Papanicolaou smear with manual screeningOrdered By: Dr. Frey on 07-16-2022 Thin prep Papanicolaou smear with manual screening 6 5-15 [facility] Basophil percentageOrdered B y: Dr. Frey on 07-09-2022 Chloride [Moles/Vol] 108 mmol/L 98-107 [facility] Glucose [Mass/Vol] 89 mg/dL 74-106 [facility] Potassium [Moles/Vol] 3.8 mmol/L 3.5-5.1 [facility] Sodium [Moles/Vol] 141 mmol/L 136-145 [facility] Laboratory - Chemistry and C hemistry - challengeOrdered By: Dr. Frey on 07-09-2022 CO2 [Moles/Vol] 27.0 mmol/L 21.0-32.0 [facility] Urea nitrogen/Creatinine [Mass ratio] 19.8 mg/mg 10-20 [facility] No Panel InformationOrdered By: Dr. Frey on 07-09-2022 Estimated GFR (MDRD) Amer 50 mL/min >60 [facility] Comment on above: GFR Calc Estimated GFR (MDRD) Non-Af Amer 41 mL/min >60 [facility] Comment on above: Non- GFR Calc Serum or plasma calcium dex urement (mass/volume)Ordered By: Dr. Frey on 07-09-2022 Calcium [Mass/Vol] 9.0 mg/dL 8.5-10.1 [facility] Serum or plasma creatinine m easurement (mass/volume)Ordered By: Dr. Frey on 07-09-2022 Creatinine [Mass/Vol] 1.31 mg/dL 0.55-1.02 [facility] Comment on above: The validity of the calculated GFR & GFRAA in patients over 70 years has not been determined. Clinical correlation is essential. Serum or plasma urea nitroge n measurement (mass/volume)Ordered By: Dr. Frey on 07-09-2022 Urea nitrogen [Mass/Vol] 26 mg/dL 7-18 [facility] Thin prep Papanicolaou smear with manual screeningOrdered By: Dr. Frey on 07-09-2022 Thin prep Papanicolaou smear with manual screening 6 5-15 [facility] Absolute lymphocyte countOrd ered By: Dr. Rucker on 06-04-2022 Lymphocytes Auto (Unsp spec) [#/Vol] 1.87 10*3/uL 0.83-4.51 [facility] Basophil percentageOrdered B y: Dr. Rucker on 06-04-2022 Basophils/100 WBC (Bld) 0.6 % 0-1 [facility] Chloride [Moles/Vol] 107 mmol/L 98-107 [facility] Eosinophils/100 WBC (Bld) 1.8 % 0-5 [facility] Glucose [Mass/Vol] 134 mg/dL 74-106 [facility] Comment on above: Fasting Glucose resu lt greater than or equal to 126 mg/dL suggests DIABETES MELLITUS per A.D.A. criteria. Neutrophils (Bld) [#/Vol] 4.7 10*3/uL 2.0-7.7 [facility] Neutrophils/100 WBC (Bld) 65.1 % 47-70 [facility] Potassium [Moles/Vol] 3.6 mmol/L 3.5-5.1 [facility] Sodium [Moles/Vol] 139 mmol/L 136-145 [facility] WBC (Bld) [#/Vol] 7.2 10*3/uL 4.4-11.0 [facility] Blood erythrocytes count (nu mber/volume)Ordered By: Dr. Rucker on 06-04-2022 RBC (Bld) [#/Vol] 4.11 10*6/uL 4.2-5.4 [facility] Blood hemoglobin measurement (mass/volume)Ordered By: Dr. Rucker on 06-04-2022 Hemoglobin (Bld) [Mass/Vol] 12.4 g/dL 12.0-15.0 [facility] Blood lymphocytes/100 leukoc ytesOrdered By: Dr. Rucker on 06-04-2022 Lymphocytes/100 WBC (Bld) 25.9 % 19-41 [facility] Blood monocytes/100 leukocyt esOrdered By: Dr. Rucker on 06-04-2022 Monocytes/100 WBC (Bld) 6.2 % 0-10 [facility] Blood platelet mean volumeOr dered By: Dr. Rucker on 06-04-2022 Platelet mean volume (Bld) [Entitic vol] 10.7 fL 6.2-12.0 [facility] Determination of erythrocyte mean corpuscular volume (MCV)Ordered By: Dr. Rucker on 06-04-2022 MCV (RBC) [Entitic vol] 97.6 fL 81-99 [facility] Hematocrit Auto (Bld) [Volum e fraction]Ordered By: Dr. Rucker on 06-04-2022 Hematocrit (Bld) [Volume fraction] 40.1 % 37-47 [facility] Laboratory - Chemistry and C hemistry - challengeOrdered By: Dr. Rucker on 06-04-2022 CO2 [Moles/Vol] 27.0 mmol/L 21.0-32.0 [facility] Urea nitrogen/Creatinine [Mass ratio] 15.4 mg/mg 10-20 [facility] Laboratory - Hematology and Cell countsOrdered By: Dr. Rucker on 06-04-2022 Erythrocyte distribution width (RBC) [Entitic vol] 48.3 fL 35.1-43.9 [facility] Erythrocyte distribution width (RBC) [Ratio] 13.5 % 11.6-14.6 [facility] Immature granulocytes/100 WBC (Bld) 0.400 % 0.0-0.9 [facility] Comment on above: IG% - Immature Granu locytes (promyelocytes, myelocytes and metamyelocytes) > 1% indicates that a LEFT SHIFT is Present. MCH (RBC) [Entitic mass] 30.2 pg 27.0-32.0 [facility] Nucleated RBC/100 WBC (Bld) [Ratio] 0 % 0-5 [facility] MCHC Auto (RBC) [Mass/Vol]Or dered By: Dr. Rucker on 06-04-2022 MCHC (RBC) [Mass/Vol] 30.9 g/dL 32-36 [facility] No Panel InformationOrdered By: Dr. Rucker on 06-04-2022 Estimated Creatinine Clearance Calc 26.45 ml/min [facility] Estimated GFR (MDRD) Amer 53 mL/min >60 [facility] Comment on above: GFR Calc Estimated GFR (MDRD) Non-Af Amer 44 mL/min >60 [facility] Comment on above: Non- GFR Calc Troponin I High Sensitivity 326 pg/mL 3.0-54.0 [facility] Comment on above: Critical Result(s) C alled at: 10:50:52 06/04/2022 by: Dahlia Stearns. Results read back by same. Please Note: New Test Units and Gender Specific Reference Ranges. For more information see Policy Stat Procedure [place] High Sensitivity Troponin (TNIH) and attachments. Platelets bldOrdered By: Dr. Rucker on 06-04-2022 Platelets (Bld) [#/Vol] 232 10*3/uL 150-450 [facility] Serum or plasma calcium dex urement (mass/volume)Ordered By: Dr. Rucker on 06-04-2022 Calcium [Mass/Vol] 9.1 mg/dL 8.5-10.1 [facility] Serum or plasma creatinine m easurement (mass/volume)Ordered By: Dr. Rucker on 06-04-2022 Creatinine [Mass/Vol] 1.23 mg/dL 0.55-1.02 [facility] Comment on above: The validity of the calculated GFR & GFRAA in patients over 70 years has not been determined. Clinical correlation is essential. Serum or plasma urea nitroge n measurement (mass/volume)Ordered By: Dr. Rucker on 06-04-2022 Urea nitrogen [Mass/Vol] 19 mg/dL 7-18 [facility] Thin prep Papanicolaou smear with manual screeningOrdered By: Dr. Rucker on 06-04-2022 Thin prep Papanicolaou smear with manual screening 5 5-15 [facility] Basophil percentageOrdered B y: Dr. Sewell on 05-13-2022 Basophil percentage 2.3 mg/dL 2.5-4.9 [facility] Chloride [Moles/Vol] 108 mmol/L 98-107 [facility] Glucose [Mass/Vol] 74 mg/dL 74-106 [facility] Potassium [Moles/Vol] 3.6 mmol/L 3.5-5.1 [facility] Sodium [Moles/Vol] 138 mmol/L 136-145 [facility] Laboratory - Chemistry and C hemistry - challengeOrdered By: Dr. Sewell on 05-13-2022 CO2 [Moles/Vol] 21.0 mmol/L 21.0-32.0 [facility] Urea nitrogen/Creatinine [Mass ratio] 15.8 mg/mg 10-20 [facility] No Panel InformationOrdered By: Dr. Sewell on 05-13-2022 Estimated GFR (MDRD) Amer 46 mL/min >60 [facility] Comment on above: GFR Calc Estimated GFR (MDRD) Non-Af Amer 38 mL/min >60 [facility] Comment on above: Non- GFR Calc Serum or plasma albumin dex urement (mass/volume)Ordered By: Dr. Sewell on 05-13-2022 Albumin [Mass/Vol] 3.6 g/dL 3.2-5.0 [facility] Serum or plasma calcium dex urement (mass/volume)Ordered By: Dr. Sewell on 05-13-2022 Calcium [Mass/Vol] 9.2 mg/dL 8.5-10.1 [facility] Serum or plasma creatinine m easurement (mass/volume)Ordered By: Dr. Sewell on 05-13-2022 Creatinine [Mass/Vol] 1.39 mg/dL 0.55-1.02 [facility] Comment on above: The validity of the calculated GFR & GFRAA in patients over 70 years has not been determined. Clinical correlation is essential. Serum or plasma urea nitroge n measurement (mass/volume)Ordered By: Dr. Sewell on 05-13-2022 Urea nitrogen [Mass/Vol] 22 mg/dL 7-18 [facility] Absolute lymphocyte countOrd ered By: Dr. Nash on 05-05-2022 Lymphocytes Auto (Unsp spec) [#/Vol] 1.80 10*3/uL 0.83-4.51 [facility] Basophil percentageOrdered B y: Dr. Sewell on 05-05-2022 Basophil percentage 1.9 mg/dL 2.5-4.9 [facility] Basophil percentageOrdered B y: Dr. Nash on 05-05-2022 Basophils/100 WBC (Bld) 0.6 % 0-1 [facility] Chloride [Moles/Vol] 104 mmol/L 98-107 [facility] Eosinophils/100 WBC (Bld) 3.9 % 0-5 [facility] Glucose [Mass/Vol] 98 mg/dL 74-106 [facility] Neutrophils (Bld) [#/Vol] 3.7 10*3/uL 2.0-7.7 [facility] Neutrophils/100 WBC (Bld) 57.1 % 47-70 [facility] Potassium [Moles/Vol] 3.5 mmol/L 3.5-5.1 [facility] Sodium [Moles/Vol] 140 mmol/L 136-145 [facility] WBC (Bld) [#/Vol] 6.4 10*3/uL 4.4-11.0 [facility] Blood erythrocytes count (nu mber/volume)Ordered By: Dr. Nash on 05-05-2022 RBC (Bld) [#/Vol] 3.43 10*6/uL 4.2-5.4 [facility] Blood hemoglobin measurement (mass/volume)Ordered By: Dr. Nash on 05-05-2022 Hemoglobin (Bld) [Mass/Vol] 10.8 g/dL 12.0-15.0 [facility] Blood lymphocytes/100 leukoc ytesOrdered By: Dr. Nash on 05-05-2022 Lymphocytes/100 WBC (Bld) 28.0 % 19-41 [facility] Blood monocytes/100 leukocyt esOrdered By: Dr. Nash on 05-05-2022 Monocytes/100 WBC (Bld) 10.1 % 0-10 [facility] Blood platelet mean volumeOr dered By: Dr. Nash on 05-05-2022 Platelet mean volume (Bld) [Entitic vol] 10.5 fL 6.2-12.0 [facility] Culture, urineOrdered By: Dr Tony Sewell on 05-05-2022 Bacteria identified Cx Nom (U) Klebsiella pneumoniae sp pneum [facility] Bacteria identified Cx Nom (U) Positive [facility] Determination of erythrocyte mean corpuscular volume (MCV)Ordered By: Dr. Nash on 05-05-2022 MCV (RBC) [Entitic vol] 97.4 fL 81-99 [facility] Hematocrit Auto (Bld) [Volum e fraction]Ordered By: Dr. Nash on 05-05-2022 Hematocrit (Bld) [Volume fraction] 33.4 % 37-47 [facility] Laboratory - Chemistry and C hemistry - challengeOrdered By: Dr. Nash on 05-05-2022 CO2 [Moles/Vol] 31.0 mmol/L 21.0-32.0 [facility] Magnesium [Mass/Vol] 2.5 mg/dL 1.6-2.6 [facility] Urea nitrogen/Creatinine [Mass ratio] 25.8 mg/mg 10-20 [facility] Laboratory - Hematology and Cell countsOrdered By: Dr. Nash on 05-05-2022 Erythrocyte distribution width (RBC) [Entitic vol] 49.7 fL 35.1-43.9 [facility] Erythrocyte distribution width (RBC) [Ratio] 14.3 % 11.6-14.6 [facility] Immature granulocytes/100 WBC (Bld) 0.300 % 0.0-0.9 [facility] Comment on above: IG% - Immature Granu locytes (promyelocytes, myelocytes and metamyelocytes) > 1% indicates that a LEFT SHIFT is Present. MCH (RBC) [Entitic mass] 31.5 pg 27.0-32.0 [facility] Nucleated RBC/100 WBC (Bld) [Ratio] 0 % 0-5 [facility] MCHC Auto (RBC) [Mass/Vol]Or dered By: Dr. Nash on 05-05-2022 MCHC (RBC) [Mass/Vol] 32.3 g/dL 32-36 [facility] No Panel InformationOrdered By: Dr. Nash on 05-05-2022 Estimated Creatinine Clearance Calc 21.54 ml/min [facility] Estimated GFR (MDRD) Amer 42 mL/min >60 [facility] Comment on above: GFR Calc Estimated GFR (MDRD) Non-Af Amer 35 mL/min >60 [facility] Comment on above: Non- GFR Calc Platelets bldOrdered By: Dr. Nash on 05-05-2022 Platelets (Bld) [#/Vol] 199 10*3/uL 150-450 [facility] Serum or plasma albumin dex urement (mass/volume)Ordered By: Dr. Sewell on 05-05-2022 Albumin [Mass/Vol] 2.7 g/dL 3.2-5.0 [facility] Serum or plasma calcium dex urement (mass/volume)Ordered By: Dr. Nash on 05-05-2022 Calcium [Mass/Vol] 8.6 mg/dL 8.5-10.1 [facility] Serum or plasma creatinine m easurement (mass/volume)Ordered By: Dr. Nash on 05-05-2022 Creatinine [Mass/Vol] 1.51 mg/dL 0.55-1.02 [facility] Comment on above: The validity of the calculated GFR & GFRAA in patients over 70 years has not been determined. Clinical correlation is essential. Serum or plasma urea nitroge n measurement (mass/volume)Ordered By: Dr. Nash on 05-05-2022 Urea nitrogen [Mass/Vol] 39 mg/dL 7-18 [facility] Thin prep Papanicolaou smear with manual screeningOrdered By: Dr. Nash on 05-05-2022 Thin prep Papanicolaou smear with manual screening 5 5-15 [facility] Basophil percentageOrdered B y: Dr. Sewell on 05-04-2022 Bilirubin [Mass/Vol] 0.90 mg/dL 0.20-1.00 [facility] Comment on above: For patients on eltr ombopag therapy, use of Dimension [place] TBIL is not recommended. Protein [Mass/Vol] 6.1 g/dL 6.4-8.2 [facility] Laboratory - Chemistry and C hemistry - challengeOrdered By: Dr. Sewell on 05-04-2022 ALP [Catalytic activity/Vol] 53 U/L 45-117 [facility] ALT [Catalytic activity/Vol] 174 U/L 13-56 [facility] Globulin (S) [Mass/Vol] 3.3 g/dL 2.2-4.2 [facility] Serum or plasma albumin/glob ulin mass ratioOrdered By: Dr. Sewell on 05-04-2022 Albumin/Globulin [Mass ratio] 0.8 {ratio} 0.9-2.4 [facility] Thin prep Papanicolaou smear with manual screeningOrdered By: Dr. Sewell on 05-04-2022 Thin prep Papanicolaou smear with manual screening 67 U/L 15-37 [facility] Basophil percentageOrdered B y: Dr. Sewell on 05-03-2022 Basophil percentage 0-5 SEEN /hpf 0-5 [facility] Bilirubin Test strip Ql (U)O rdered By: Dr. Sewell on 05-03-2022 Bilirubin Ql (U) Negative Negative [facility] Ketones Test strip Ql (U)Ord ered By: Dr. Sewell on 05-03-2022 Ketones Ql (U) Negative Negative [facility] Laboratory - Chemistry and C hemistry - challengeOrdered By: Dr. Sewell on 05-03-2022 Sodium (U) [Moles/Vol] 118 mmol/L Not Establ. [facility] Mucus LM Ql (Urine sed)Order ed By: Dr. Sewell on 05-03-2022 Mucus Ql (Urine sed) 0 SEEN /hpf [facility] Nitrite Test strip Ql (U)Ord ered By: Dr. Sewell on 05-03-2022 Nitrite Ql (U) Positive Negative [facility] Protein Test strip Ql (U)Ord ered By: Dr. Sewell on 05-03-2022 Protein Ql (U) Negative Negative [facility] Squamous epithelial cells de tection in urine sediment by light microscopyOrdered By: Dr. Sewell on 05-03-2022 Epithelial cells.squamous LM Ql (Urine sed) 0-5 SEEN /hpf 5-10 [facility] Urine blood detectionOrdered By: Dr. Sewell on 05-03-2022 RBC Ql (U) 250 /ul Negative [facility] RBC Ql (U) 0-5 SEEN /hpf 0-5 [facility] Urine clarityOrdered By: Dr. Sewell on 05-03-2022 Clarity (U) Clear Clear [facility] Urine color determinationOrd ered By: Dr. Sewell on 05-03-2022 Color (U) Yellow Yellow [facility] Urine creatinine measurement (mass/volume)Ordered By: Dr. Sewell on 05-03-2022 Creatinine (U) [Mass/Vol] 26.10 mg/dL NO RANGE EST. [facility] Urine glucose detectionOrder ed By: Dr. Sewell on 05-03-2022 Glucose Ql (U) Normal mg/dl Normal [facility] Urine leukocyte esterase det ection by dipstickOrdered By: Dr. Sewell on 05-03-2022 Leukocyte esterase Test strip Ql (U) 500 /ul Negative [facility] Urine pHOrdered By: Dr. Sewell on 05-03-2022 pH (U) 6.0 [pH] 5.0 - 8.0 [facility] Urine protein measurement (m ass/volume)Ordered By: Dr. Sewell on 05-03-2022 Protein (U) [Mass/Vol] 14.5 mg/dL 0.0-11.8 [facility] Urine protein/creatinine mas s ratioOrdered By: Dr. Sewell on 05-03-2022 Protein/Creatinine (U) [Mass ratio] 556 mg/g CRE 0-200 [facility] Urine sediment bacteria coun t by microscopy (number/high power field)Ordered By: Dr. Sewell on 05-03-2022 Bacteria LM.HPF (Urine sed) [#/Area] 3 /[HPF] None Seen [facility] Urine specific gravity measu rementOrdered By: Dr. Sewell on 05-03-2022 Specific gravity (U) [Rel density] 1.010 1.002-1.030 [facility] Urobilinogen Auto test strip Ql (U)Ordered By: Dr. Sewell on 05-03-2022 Urobilinogen Ql (U) Normal mg/dl Normal [facility] Basophil percentageOrdered B y: Dr. Tucker on 05-02-2022 Lactate [Moles/Vol] 1.4 mmol/L 0.4-2.0 [facility] No Panel InformationOrdered By: Dr. Sewell on 05-02-2022 Troponin I High Sensitivity 563 pg/mL 3.0-54.0 [facility] Comment on above: Critical Result(s) C alled at: 01:46:23 05/02/2022 by: FEDE MIRELES to Roslyn Arechiga RN PCU. Results read back by same. Please Note: New Test Units and Gender Specific Reference Ranges. For more information see Policy Stat Procedure [place] High Sensitivity Troponin (TNIH) and attachments. Absolute lymphocyte countOrd ered By: Ning Spencer on 05-01-2022 Lymphocytes Auto (Unsp spec) [#/Vol] 1.87 10*3/uL 0.83-4.51 [facility] Basophil percentageon 2021 Lactate [Moles/Vol] 3.9 mmol/L 0.4-2.0 [facility] Work Phone: Comment on above: Critical Result(s) C alled at: 20:37:06 05/01/2022 by: JAKE MCKEON. TO MARKO HAUSER [employer] Results read back by same. Basophil percentageOrdered B y: Ning Spencer on 05-01-2022 Basophils/100 WBC (Bld) 0.7 % 0-1 [facility] Chloride [Moles/Vol] 108 mmol/L 98-107 [facility] Eosinophils/100 WBC (Bld) 1.4 % 0-5 [facility] Glucose [Mass/Vol] 108 mg/dL 74-106 [facility] Comment on above: Fasting Glucose resu lt from 100 to 125 mg/dL suggests IMPAIRED HOMEOSTASIS per A.D.A. criteria. Neutrophils (Bld) [#/Vol] 5.1 10*3/uL 2.0-7.7 [facility] Neutrophils/100 WBC (Bld) 66.5 % 47-70 [facility] Potassium [Moles/Vol] 3.9 mmol/L 3.5-5.1 [facility] Sodium [Moles/Vol] 140 mmol/L 136-145 [facility] WBC (Bld) [#/Vol] 7.6 10*3/uL 4.4-11.0 [facility] Blood erythrocytes count (nu mber/volume)Ordered By: Ning Spencer on 05-01-2022 RBC (Bld) [#/Vol] 4.05 10*6/uL 4.2-5.4 [facility] Blood hemoglobin measurement (mass/volume)Ordered By: Ning Spencer on 05-01-2022 Hemoglobin (Bld) [Mass/Vol] 12.6 g/dL 12.0-15.0 [facility] Blood lymphocytes/100 leukoc ytesOrdered By: Ning Spencer on 05-01-2022 Lymphocytes/100 WBC (Bld) 24.5 % 19-41 [facility] Blood monocytes/100 leukocyt esOrdered By: Ning Spencer on 05-01-2022 Monocytes/100 WBC (Bld) 6.6 % 0-10 [facility] Blood platelet mean volumeOr dered By: Ning Spencer on 05-01-2022 Platelet mean volume (Bld) [Entitic vol] 10.8 fL 6.2-12.0 [facility] Determination of erythrocyte mean corpuscular volume (MCV)Ordered By: Ning Spencer on 05-01-2022 MCV (RBC) [Entitic vol] 100.0 fL 81-99 [facility] Hematocrit Auto (Bld) [Volum e fraction]Ordered By: Ning Spencer on 05-01-2022 Hematocrit (Bld) [Volume fraction] 40.5 % 37-47 [facility] Laboratory - Chemistry and C hemistry - challengeOrdered By: Ning Spencer on 05-01-2022 CO2 [Moles/Vol] 27.0 mmol/L 21.0-32.0 [facility] Free T4 [Mass/Vol] 1.49 ng/dL 0.76-1.46 [facility] Magnesium [Mass/Vol] 2.0 mg/dL 1.6-2.6 [facility] Natriuretic peptide B (Bld) [Mass/Vol] 1194.3 pg/mL 0-100 [facility] Urea nitrogen/Creatinine [Mass ratio] 20.1 mg/mg 10-20 [facility] Laboratory - Hematology and Cell countsOrdered By: Ning Spencer on 05-01-2022 Erythrocyte distribution width (RBC) [Entitic vol] 49.6 fL 35.1-43.9 [facility] Erythrocyte distribution width (RBC) [Ratio] 13.8 % 11.6-14.6 [facility] Immature granulocytes/100 WBC (Bld) 0.300 % 0.0-0.9 [facility] Comment on above: IG% - Immature Granu locytes (promyelocytes, myelocytes and metamyelocytes) > 1% indicates that a LEFT SHIFT is Present. MCH (RBC) [Entitic mass] 31.1 pg 27.0-32.0 [facility] Nucleated RBC/100 WBC (Bld) [Ratio] 0 % 0-5 [facility] MCHC Auto (RBC) [Mass/Vol]Or dered By: Ning Spencer on 05-01-2022 MCHC (RBC) [Mass/Vol] 31.1 g/dL 32-36 [facility] No Panel Informationon 05-01 Troponin I High Sensitivity 172 pg/mL 3.0-54.0 [facility] Work Phone: Comment on above: Critical Result(s) C alled at: 20:37:45 05/01/2022 by: JAKE MCKEON TO MARKO HAUSER RN ED. Results read back by same. Please Note: New Test Units and Gender Specific Reference Ranges. For more information see Policy Stat Procedure [place] High Sensitivity Troponin (TNIH) and attachments. No Panel InformationOrdered By: Ning Spencer on 11-03-2022 Estimated GFR (MDRD) Amer 29 mL/min >60 [facility] Comment on above: GFR Calc Estimated GFR (MDRD) Non-Af Amer 24 mL/min >60 [facility] Comment on above: Non- GFR Calc Free Triiodothyronine (T3) pg/dL 2.2 pg/mL 2.18-3.98 [facility] Thyroid Stimulating Hormone (TSH) 2.16 uIU/mL 0.358-3.74 [facility] Platelets bldOrdered By: Rob Spencer on 05-01-2022 Platelets (Bld) [#/Vol] 192 10*3/uL 150-450 [facility] Serum or plasma calcium dex urement (mass/volume)Ordered By: Ning Spencer on 05-01-2022 Calcium [Mass/Vol] 9.2 mg/dL 8.5-10.1 [facility] Serum or plasma creatinine m easurement (mass/volume)Ordered By: Ning Spencer on 05-01-2022 Creatinine [Mass/Vol] 2.09 mg/dL 0.55-1.02 [facility] Comment on above: The validity of the calculated GFR & GFRAA in patients over 70 years has not been determined. Clinical correlation is essential. Serum or plasma urea nitroge n measurement (mass/volume)Ordered By: Ning Spencer on 05-01-2022 Urea nitrogen [Mass/Vol] 42 mg/dL 7-18 [facility] Thin prep Papanicolaou smear with manual screeningOrdered By: Ning Spencer on 05-01-2022 Thin prep Papanicolaou smear with manual screening 5 5-15 [facility] Absolute lymphocyte countOrd ered By: Dr. Tam on 04-24-2022 Lymphocytes Auto (Unsp spec) [#/Vol] 2.24 10*3/uL 0.83-4.51 [facility] Basophil percentageOrdered B y: Dr. Tam on 04-24-2022 Basophils/100 WBC (Bld) 0.6 % 0-1 [facility] Chloride [Moles/Vol] 106 mmol/L 98-107 [facility] Eosinophils/100 WBC (Bld) 0.3 % 0-5 [facility] Glucose [Mass/Vol] 118 mg/dL 74-106 [facility] Comment on above: Fasting Glucose resu lt from 100 to 125 mg/dL suggests IMPAIRED HOMEOSTASIS per A.D.A. criteria. Neutrophils (Bld) [#/Vol] 9.5 10*3/uL 2.0-7.7 [facility] Neutrophils/100 WBC (Bld) 74.5 % 47-70 [facility] Potassium [Moles/Vol] 3.7 mmol/L 3.5-5.1 [facility] Sodium [Moles/Vol] 140 mmol/L 136-145 [facility] WBC (Bld) [#/Vol] 12.7 10*3/uL 4.4-11.0 [facility] Blood erythrocytes count (nu mber/volume)Ordered By: Dr. Tam on 04-24-2022 RBC (Bld) [#/Vol] 4.44 10*6/uL 4.2-5.4 [facility] Blood hemoglobin measurement (mass/volume)Ordered By: Dr. Tam on 04-24-2022 Hemoglobin (Bld) [Mass/Vol] 13.7 g/dL 12.0-15.0 [facility] Blood lymphocytes/100 leukoc ytesOrdered By: Dr. Tam on 04-24-2022 Lymphocytes/100 WBC (Bld) 17.6 % 19-41 [facility] Blood monocytes/100 leukocyt esOrdered By: Dr. Tam on 04-24-2022 Monocytes/100 WBC (Bld) 6.6 % 0-10 [facility] Blood platelet mean volumeOr dered By: Dr. Tam on 04-24-2022 Platelet mean volume (Bld) [Entitic vol] 10.5 fL 6.2-12.0 [facility] Determination of erythrocyte mean corpuscular volume (MCV)Ordered By: Dr. Tam on 04-24-2022 MCV (RBC) [Entitic vol] 95.7 fL 81-99 [facility] Hematocrit Auto (Bld) [Volum e fraction]Ordered By: Dr. Tam on 04-24-2022 Hematocrit (Bld) [Volume fraction] 42.5 % 37-47 [facility] Laboratory - Chemistry and C hemistry - challengeOrdered By: Dr. Tam on 04-24-2022 CO2 [Moles/Vol] 25.0 mmol/L 21.0-32.0 [facility] Urea nitrogen/Creatinine [Mass ratio] 16.8 mg/mg 10-20 [facility] Laboratory - Hematology and Cell countsOrdered By: Dr. Tam on 04-24-2022 Erythrocyte distribution width (RBC) [Entitic vol] 47.8 fL 35.1-43.9 [facility] Erythrocyte distribution width (RBC) [Ratio] 13.5 % 11.6-14.6 [facility] Immature granulocytes/100 WBC (Bld) 0.400 % 0.0-0.9 [facility] Comment on above: IG% - Immature Granu locytes (promyelocytes, myelocytes and metamyelocytes) > 1% indicates that a LEFT SHIFT is Present. MCH (RBC) [Entitic mass] 30.9 pg 27.0-32.0 [facility] Nucleated RBC/100 WBC (Bld) [Ratio] 0 % 0-5 [facility] MCHC Auto (RBC) [Mass/Vol]Or dered By: Dr. Tam on 04-24-2022 MCHC (RBC) [Mass/Vol] 32.2 g/dL 32-36 [facility] No Panel InformationOrdered By: Dr. Tam on 04-24-2022 Estimated Creatinine Clearance Calc 17.12 ml/min [facility] Estimated GFR (MDRD) Amer 32 mL/min >60 [facility] Comment on above: GFR Calc Estimated GFR (MDRD) Non-Af Amer 27 mL/min >60 [facility] Comment on above: Non- GFR Calc Troponin I High Sensitivity 172 pg/mL 3.0-54.0 [facility] Comment on above: Critical Result(s) C alled at: 16:16:10 04/24/2022 by: DEIDRA LONG to MALACHI ROUSE. Results read back by same. Please Note: New Test Units and Gender Specific Reference Ranges. For more information see Policy Stat Procedure [place] High Sensitivity Troponin (TNIH) and attachments. Platelets bldOrdered By: Dr. Tam on 04-24-2022 Platelets (Bld) [#/Vol] 211 10*3/uL 150-450 [facility] Serum or plasma calcium dex urement (mass/volume)Ordered By: Dr. Tam on 04-24-2022 Calcium [Mass/Vol] 9.5 mg/dL 8.5-10.1 [facility] Serum or plasma creatinine m easurement (mass/volume)Ordered By: Dr. Tam on 04-24-2022 Creatinine [Mass/Vol] 1.90 mg/dL 0.55-1.02 [facility] Comment on above: The validity of the calculated GFR & GFRAA in patients over 70 years has not been determined. Clinical correlation is essential. Serum or plasma urea nitroge n measurement (mass/volume)Ordered By: Dr. Tam on 04-24-2022 Urea nitrogen [Mass/Vol] 32 mg/dL 7-18 [facility] Thin prep Papanicolaou smear with manual screeningOrdered By: Dr. Tam on 04-24-2022 Thin prep Papanicolaou smear with manual screening 9 -15 [facility] XR Chest PA and Lateralon IMPRESSION: Increasing fluid and atelectasis at the right base. 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 DIVISION OF RADIOLOGY Provider, [facility] [employer] [place] - 04/11/2022 * * *Final Report* * [...] right base. Superimposed consolidation cannot be excluded Welder Machine Operator: PSCB Transcribe Date/Time: Apr 11 2022 10:40A Dictated by : RITO MORENO MD This examination was interpreted and the report reviewed and electronically signed by: RITO MORENO MD on Apr 11 2022 10:41AM EST [facility] XR Chest PA and LateralOrder ed By: Ccf Provider on 04-11-2022 [facility] XR Chest PA and Lateralon Radiology Study observation (narrative) [facility] Culture, urineOrdered By: Dr Tony Trejo on 04-06-2022 Bacteria identified Cx Nom (U) Culture exhibits no growth. [facility] Absolute lymphocyte countOrd ered By: Dr. Trejo on 04-04-2022 Lymphocytes Auto (Unsp spec) [#/Vol] 1.70 10*3/uL 0.83-4.51 [facility] Basophil percentageOrdered B y: Dr. Trejo on 04-04-2022 Basophil percentage 10-25 SEEN /hpf 0-5 [facility] Basophils/100 WBC (Bld) 0.7 % 0-1 [facility] Bilirubin [Mass/Vol] 0.70 mg/dL 0.20-1.00 [facility] Comment on above: For patients on eltr ombopag therapy, use of Dimension [place] TBIL is not recommended. Chloride [Moles/Vol] 110 mmol/L 98-107 [facility] Eosinophils/100 WBC (Bld) 1.7 % 0-5 [facility] Glucose [Mass/Vol] 141 mg/dL 74-106 [facility] Comment on above: Fasting Glucose resu lt greater than or equal to 126 mg/dL suggests DIABETES MELLITUS per A.D.A. criteria. Neutrophils (Bld) [#/Vol] 4.6 10*3/uL 2.0-7.7 [facility] Neutrophils/100 WBC (Bld) 66.7 % 47-70 [facility] Potassium [Moles/Vol] 4.9 mmol/L 3.5-5.1 [facility] Comment on above: Moderate Hemolysis, Result may be falsely increased. Protein [Mass/Vol] 7.5 g/dL 6.4-8.2 [facility] Sodium [Moles/Vol] 138 mmol/L 136-145 [facility] WBC (Bld) [#/Vol] 7.0 10*3/uL 4.4-11.0 [facility] Bilirubin Test strip Ql (U)O rdered By: Dr. Trejo on 04-04-2022 Bilirubin Ql (U) Negative Negative [facility] Blood erythrocytes count (nu mber/volume)Ordered By: Dr. Trejo on 04-04-2022 RBC (Bld) [#/Vol] 4.06 10*6/uL 4.2-5.4 [facility] Blood hemoglobin measurement (mass/volume)Ordered By: Dr. Trejo on 04-04-2022 Hemoglobin (Bld) [Mass/Vol] 12.6 g/dL 12.0-15.0 [facility] Blood lymphocytes/100 leukoc ytesOrdered By: Dr. Trejo on 04-04-2022 Lymphocytes/100 WBC (Bld) 24.4 % 19-41 [facility] Blood monocytes/100 leukocyt esOrdered By: Dr. Trejo on 04-04-2022 Monocytes/100 WBC (Bld) 6.2 % 0-10 [facility] Blood platelet mean volumeOr dered By: Dr. Trejo on 04-04-2022 Platelet mean volume (Bld) [Entitic vol] 10.6 fL 6.2-12.0 [facility] Determination of erythrocyte mean corpuscular volume (MCV)Ordered By: Dr. Trejo on 04-04-2022 MCV (RBC) [Entitic vol] 101.2 fL 81-99 [facility] Hematocrit Auto (Bld) [Volum e fraction]Ordered By: Dr. Trejo on 04-04-2022 Hematocrit (Bld) [Volume fraction] 41.1 % 37-47 [facility] Ketones Test strip Ql (U)Ord ered By: Dr. Trejo on 04-04-2022 Ketones Ql (U) 5 mg/dl Negative [facility] Laboratory - Chemistry and C hemistry - challengeOrdered By: Dr. Trejo on 04-04-2022 ALP [Catalytic activity/Vol] 60 U/L 45-117 [facility] ALT [Catalytic activity/Vol] 37 U/L 13-56 [facility] CO2 [Moles/Vol] 21.0 mmol/L 21.0-32.0 [facility] Globulin (S) [Mass/Vol] 4.1 g/dL 2.2-4.2 [facility] Natriuretic peptide B (Bld) [Mass/Vol] 481.3 pg/mL 0-100 [facility] Urea nitrogen/Creatinine [Mass ratio] 18.3 mg/mg 10-20 [facility] Laboratory - Hematology and Cell countsOrdered By: Dr. Trejo on 04-04-2022 Erythrocyte distribution width (RBC) [Entitic vol] 51.5 fL 35.1-43.9 [facility] Erythrocyte distribution width (RBC) [Ratio] 13.9 % 11.6-14.6 [facility] Immature granulocytes/100 WBC (Bld) 0.300 % 0.0-0.9 [facility] Comment on above: IG% - Immature Granu locytes (promyelocytes, myelocytes and metamyelocytes) > 1% indicates that a LEFT SHIFT is Present. MCH (RBC) [Entitic mass] 31.0 pg 27.0-32.0 [facility] Nucleated RBC/100 WBC (Bld) [Ratio] 0 % 0-5 [facility] MCHC Auto (RBC) [Mass/Vol]Or dered By: Dr. Trejo on 04-04-2022 MCHC (RBC) [Mass/Vol] 30.7 g/dL 32-36 [facility] Mucus LM Ql (Urine sed)Order ed By: Dr. Trejo on 04-04-2022 Mucus Ql (Urine sed) 0 SEEN /hpf [facility] Nitrite Test strip Ql (U)Ord ered By: Dr. Trejo on 04-04-2022 Nitrite Ql (U) Negative Negative [facility] No Panel InformationOrdered By: Dr. Trejo on 04-04-2022 Estimated Creatinine Clearance Calc 18.07 ml/min [facility] Estimated GFR (MDRD) Amer 34 mL/min >60 [facility] Comment on above: GFR Calc Estimated GFR (MDRD) Non-Af Amer 28 mL/min >60 [facility] Comment on above: Non- GFR Calc Platelets bldOrdered By: Dr. Trejo on 04-04-2022 Platelets (Bld) [#/Vol] 157 10*3/uL 150-450 [facility] Protein Test strip Ql (U)Ord ered By: Dr. Trejo on 04-04-2022 Protein Ql (U) 100 mg/dl Negative [facility] Serum or plasma albumin dex urement (mass/volume)Ordered By: Dr. Trejo on 04-04-2022 Albumin [Mass/Vol] 3.4 g/dL 3.2-5.0 [facility] Serum or plasma albumin/glob ulin mass ratioOrdered By: Dr. Trejo on 04-04-2022 Albumin/Globulin [Mass ratio] 0.8 {ratio} 0.9-2.4 [facility] Serum or plasma calcium dex urement (mass/volume)Ordered By: Dr. Trejo on 04-04-2022 Calcium [Mass/Vol] 9.1 mg/dL 8.5-10.1 [facility] Serum or plasma creatinine m easurement (mass/volume)Ordered By: Dr. Trejo on 04-04-2022 Creatinine [Mass/Vol] 1.80 mg/dL 0.55-1.02 [facility] Comment on above: The validity of the calculated GFR & GFRAA in patients over 70 years has not been determined. Clinical correlation is essential. Serum or plasma urea nitroge n measurement (mass/volume)Ordered By: Dr. Trejo on 04-04-2022 Urea nitrogen [Mass/Vol] 33 mg/dL 7-18 [facility] Squamous epithelial cells de tection in urine sediment by light microscopyOrdered By: Dr. Trejo on 04-04-2022 Epithelial cells.squamous LM Ql (Urine sed) 0-5 SEEN /hpf 5-10 [facility] Thin prep Papanicolaou smear with manual screeningOrdered By: Dr. Trejo on 04-04-2022 Thin prep Papanicolaou smear with manual screening 36 U/L 15-37 [facility] Comment on above: Moderate Hemolysis, Result may be falsely increased. Thin prep Papanicolaou smear with manual screening 7 5-15 [facility] Urine blood detectionOrdered By: Dr. Trejo on 04-04-2022 RBC Ql (U) 150 /ul Negative [facility] RBC Ql (U) 5-10 SEEN /hpf 0-5 [facility] Urine clarityOrdered By: Dr. Trejo on 04-04-2022 Clarity (U) Sl. Cloudy Clear [facility] Urine color determinationOrd ered By: Dr. Trejo on 04-04-2022 Color (U) Yellow Yellow [facility] Urine glucose detectionOrder ed By: Dr. Trejo on 04-04-2022 Glucose Ql (U) Normal mg/dl Normal [facility] Urine leukocyte esterase det ection by dipstickOrdered By: Dr. Trejo on 04-04-2022 Leukocyte esterase Test strip Ql (U) 100 /ul Negative [facility] Urine pHOrdered By: Dr. Christina caballero on 04-04-2022 pH (U) 6.0 [pH] 5.0 - 8.0 [facility] Urine sediment bacteria coun t by microscopy (number/high power field)Ordered By: Dr. Trejo on 04-04-2022 Bacteria LM.HPF (Urine sed) [#/Area] 0 /[HPF] None Seen [facility] Urine specific gravity measu rementOrdered By: Dr. Trejo on 04-04-2022 Specific gravity (U) [Rel density] 1.020 1.002-1.030 [facility] Urobilinogen Auto test strip Ql (U)Ordered By: Dr. Trejo on 04-04-2022 Urobilinogen Ql (U) Normal mg/dl Normal [facility] XR Chest PA and Lateralon IMPRESSION: Fluid and atelectasis is again seen at both lung bases. Stable on the left, slightly increased on the right. Superimposed consolidation at the right lung base cannot be excluded Welder Machine Operator: CANDY Transcribe Date/Time: Apr 03 2022 9:08A Dictated by : RITO MORENO MD This examination was interpreted and the report reviewed and electronically signed by: RITO MORENO MD on Apr 03 2022 9:09AM [facility] DIVISION OF RADIOLOGY * * *Final [...] soft tissues: Unremarkable. DIVISION OF RADIOLOGY Provider, [facility] - 04/03/2022 * * *Final Report* * [...] the right lung base cannot be excluded Welder Machine Operator: PSCB Transcribe Date/Time: Apr 03 2022 9:08A Dictated by : RITO MORENO MD This examination was interpreted and the report reviewed and electronically signed by: RITO MORENO MD on Apr 03 2022 9:09AM EST [facility] XR Chest PA and LateralOrder ed By: Ccf Provider on 04-03-2022 [facility] XR Chest PA and Lateralon Radiology Study observation (narrative) [place] cardozo [facility] Basophil percentageOrdered B y: Tex Squires on 03-31-2022 Chloride [Moles/Vol] 111 mmol/L 98-107 [facility] Glucose [Mass/Vol] 108 mg/dL 74-106 [facility] Comment on above: Fasting Glucose resu lt from 100 to 125 mg/dL suggests IMPAIRED HOMEOSTASIS per A.D.A. criteria. Potassium [Moles/Vol] 3.2 mmol/L 3.5-5.1 [facility] Sodium [Moles/Vol] 142 mmol/L 136-145 [facility] C. DIFFICILE PCRon 2 C. difficile toxin genes GUERA+probe Ql (Stl) Negative Negative for C. difficile toxin by PCR [facility] Laboratory - Chemistry and C hemistry - challengeOrdered By: Tex Squires on 03-31-2022 CO2 [Moles/Vol] 23.0 mmol/L 21.0-32.0 [facility] Urea nitrogen/Creatinine [Mass ratio] 21.0 mg/mg 10-20 [facility] No Panel InformationOrdered By: Tex Squires on 03-31-2022 Estimated GFR (MDRD) Amer 35 mL/min >60 [facility] Comment on above: GFR Calc Estimated GFR (MDRD) Non-Af Amer 29 mL/min >60 [facility] Comment on above: Non- GFR Calc Serum or plasma calcium dex urement (mass/volume)Ordered By: Tex Squires on 03-31-2022 Calcium [Mass/Vol] 9.0 mg/dL 8.5-10.1 [facility] Serum or plasma creatinine m easurement (mass/volume)Ordered By: Tex Squires on 03-31-2022 Creatinine [Mass/Vol] 1.76 mg/dL 0.55-1.02 [facility] Comment on above: The validity of the calculated GFR & GFRAA in patients over 70 years has not been determined. Clinical correlation is essential. Serum or plasma urea nitroge n measurement (mass/volume)Ordered By: Tex Squires on 03-31-2022 Urea nitrogen [Mass/Vol] 37 mg/dL 7-18 [facility] Thin prep Papanicolaou smear with manual screeningOrdered By: Tex Squires on 03-31-2022 Thin prep Papanicolaou smear with manual screening 8 5-15 [facility] Basophil percentageOrdered B y: Tex Squires on 03-25-2022 Chloride [Moles/Vol] 112 mmol/L 98-107 [facility] Glucose [Mass/Vol] 102 mg/dL 74-106 [facility] Comment on above: Fasting Glucose resu lt from 100 to 125 mg/dL suggests IMPAIRED HOMEOSTASIS per A.D.A. criteria. Potassium [Moles/Vol] 3.1 mmol/L 3.5-5.1 [facility] Sodium [Moles/Vol] 141 mmol/L 136-145 [facility] Laboratory - Chemistry and C hemistry - challengeOrdered By: Tex Squires on 03-25-2022 CO2 [Moles/Vol] 21.0 mmol/L 21.0-32.0 [facility] Natriuretic peptide B (Bld) [Mass/Vol] 544.7 pg/mL 0-100 [facility] Urea nitrogen/Creatinine [Mass ratio] 16.0 mg/mg 10-20 [facility] No Panel InformationOrdered By: Tex Squires on 03-25-2022 Estimated GFR (MDRD) Amer 37 mL/min >60 [facility] Comment on above: GFR Calc Estimated GFR (MDRD) Non-Af Amer 31 mL/min >60 [facility] Comment on above: Non- GFR Calc Serum or plasma calcium dex urement (mass/volume)Ordered By: Tex Squires on 03-25-2022 Calcium [Mass/Vol] 9.1 mg/dL 8.5-10.1 [facility] Serum or plasma creatinine m easurement (mass/volume)Ordered By: Tex Squires on 03-25-2022 Creatinine [Mass/Vol] 1.69 mg/dL 0.55-1.02 [facility] Comment on above: The validity of the calculated GFR & GFRAA in patients over 70 years has not been determined. Clinical correlation is essential. Serum or plasma urea nitroge n measurement (mass/volume)Ordered By: Tex Squires on 03-25-2022 Urea nitrogen [Mass/Vol] 27 mg/dL 7-18 [facility] Thin prep Papanicolaou smear with manual screeningOrdered By: Tex Squires on 03-25-2022 Thin prep Papanicolaou smear with manual screening 8 5-15 [facility] XR CHEST 2V FRONTAL/LATon [facility] XR Chest PA and Lateralon IMPRESSION: Fluid and atelectasis at both lung bases. Early developing pneumonia cannot be excluded. Mild cardiomegaly. Follow-up recommended. Welder Machine Operator: CANDY Transcribe Date/Time: Mar 20 2022 5:28P Dictated by : RITO MORENO MD This examination was interpreted and the report reviewed and electronically signed by: RITO MORENO MD on Mar 20 2022 5:29PM [facility] DIVISION OF RADIOLOGY * * *Final [...] soft tissues: Unremarkable. DIVISION OF RADIOLOGY Provider, [facility] [place] - 03/20/2022 * * *Final Report* * [...] cannot be excluded. Mild cardiomegaly. Follow-up recommended. Welder Machine Operator: CANDY Transcribe Date/Time: Mar 20 2022 5:28P Dictated by : RITO MORENO MD This examination was interpreted and the report reviewed and electronically signed by: RITO MORENO MD on Mar 20 2022 5:29PM EST [facility] Radiology Study observation (narrative) Lexy cardozo [facility] XR Chest PA and LateralOrder ed By: Ccf Provider on 03-20-2022 [facility] Absolute lymphocyte counton 02-23-2022 Lymphocytes Auto (Unsp spec) [#/Vol] 2.28 10*3/uL 0.83-4.51 [facility] Work Phone: Basophil percentageon 2021 Basophils/100 WBC (Bld) 0.6 % 0-1 [facility] Work Phone: Chloride [Moles/Vol] 113 mmol/L 98-107 [facility] Work [facility]: Eosinophils/100 WBC (Bld) 4.8 % 0-5 [facility] Work Phone: Glucose [Mass/Vol] 87 mg/dL 74-106 [facility] Work Phone: Neutrophils (Bld) [#/Vol] 3.5 10*3/uL 2.0-7.7 [facility] Work Phone: Neutrophils/100 WBC (Bld) 51.9 % 47-70 [facility] Work Phone: [phone] Potassium [Moles/Vol] 2.9 mmol/L 3.5-5.1 [facility] Work Phone: [phone] Sodium [Moles/Vol] 142 mmol/L 136-145 [facility] Work Phone: [phone] WBC (Bld) [#/Vol] 6.8 10*3/uL 4.4-11.0 [facility] Work Phone: [phone] Blood erythrocytes count (nu mber/volume)on 02-23-2022 RBC (Bld) [#/Vol] 3.02 10*6/uL 4.2-5.4 [facility] Work [facility]: Blood hemoglobin measurement (mass/volume)on 02-23-2022 Hemoglobin (Bld) [Mass/Vol] 9.5 g/dL 12.0-15.0 [facility] Work Phone: [phone] Blood lymphocytes/100 leukoc yteson 02-23-2022 Lymphocytes/100 WBC (Bld) 33.4 % 19-41 [facility] Work Phone: [phone] Blood monocytes/100 leukocyt eson 02-23-2022 Monocytes/100 WBC (Bld) 9.2 % 0-10 [facility] Work Phone: Blood platelet mean volumeon 02-23-2022 Platelet mean volume (Bld) [Entitic vol] 10.6 fL 6.2-12.0 [facility] Work Phone: [phone] Determination of erythrocyte mean corpuscular volume (MCV)on 02-23-2022 MCV (RBC) [Entitic vol] 96.0 fL 81-99 [facility] Work Phone: [phone] Hematocrit Auto (Bld) [Volum e fraction]on 02-23-2022 Hematocrit (Bld) [Volume fraction] 29.0 % 37-47 [facility] Work Phone: Laboratory - Chemistry and C hemistry - challengeon 02-23-2022 CO2 [Moles/Vol] 20.0 mmol/L 21.0-32.0 [facility] Work Phone: [phone] Urea nitrogen/Creatinine [Mass ratio] 18.7 mg/mg 10-20 [facility] Work Phone: [phone] Laboratory - Hematology and Cell countson 02-23-2022 Erythrocyte distribution width (RBC) [Entitic vol] 44.8 fL 35.1-43.9 [facility] Work Phone: [phone] Erythrocyte distribution width (RBC) [Ratio] 12.7 % 11.6-14.6 [facility] Work Phone: [phone] Immature granulocytes/100 WBC (Bld) 0.100 % 0.0-0.9 [facility] Work Phone: [phone] Comment on above: IG% - Immature Granu locytes (promyelocytes, myelocytes and metamyelocytes) > 1% indicates that a LEFT SHIFT is Present. MCH (RBC) [Entitic mass] 31.5 pg 27.0-32.0 [facility] Work Phone: [phone] Nucleated RBC/100 WBC (Bld) [Ratio] 0 % 0-5 [facility] Work Phone: [phone] MCHC Auto (RBC) [Mass/Vol]on 02-23-2022 MCHC (RBC) [Mass/Vol] 32.8 g/dL 32-36 [facility] Work Phone: [phone] Panel Informationon 02-23 Estimated Creatinine Clearance Calc 19.60 ml/min [facility] Work Phone: [phone] Estimated GFR (MDRD) Amer 38 mL/min >60 [facility] Work Phone: [phone] Comment on above: GFR Calc Estimated GFR (MDRD) Non-Af Amer 31 mL/min >60 [facility] Work Phone: [phone] Comment on above: Non- GFR Calc Platelets bldon 02-23-2022 Platelets (Bld) [#/Vol] 191 10*3/uL 150-450 [facility] Work Phone: [phone] Serum or plasma calcium dex urement (mass/volume)on 02-23-2022 Calcium [Mass/Vol] 8.1 mg/dL 8.5-10.1 [facility] Work Phone: Serum or plasma creatinine m easurement (mass/volume)on 02-23-2022 Creatinine [Mass/Vol] 1.66 mg/dL 0.55-1.02 [facility] Work Phone: Comment on above: The validity of the calculated GFR & GFRAA in patients over 70 years has not been determined. Clinical correlation is essential. Serum or plasma urea nitroge n measurement (mass/volume)on 02-23-2022 Urea nitrogen [Mass/Vol] 31 mg/dL 7-18 [facility] Work Phone: Thin prep Papanicolaou smear with manual screeningon 02-23-2022 Thin prep Papanicolaou smear with manual screening 9 5-15 [facility] Work Phone: Basophil percentageon 2021 Cholesterol [Mass/Vol] 159 mg/dL <200 [facility] Work Phone: Comment on above: <200 mg/dL Desirable 200-240 mg/dL Borderline >240 mg/dL High Risk Triglyceride [Mass/Vol] 120 mg/dL <199 [facility] Work Phone: Comment on above: The drugs N-Acetylcy steine and Metamizole may falsely depress this assay.Serum Triglycerides Reference Interval Normal <150 mg/dL Borderline high 150 - 199 mg/dL High 200 - 499 mg/dL Very High > or = 500 mg/dL Serum or plasma cholesterol in HDL measurement (mass/volume)on 02-22-2022 Cholesterol in HDL [Mass/Vol] 48 mg/dL >40 [facility] Work Phone: Comment on above: The drugs N-Acetylcy steine and Metamizole may falsely depress this assay. Reference Range HDL <40 mg/dL Low HDL Cholesterol HDL >or= 60 mg/dL High HDL Cholesterol Serum or plasma cholesterol in VLDL measurement (mass/volume)on 02-22-2022 Cholesterol in VLDL [Mass/Vol] 24 mg/dL 5-40 [facility] Work Phone: Serum or plasma low density lipoprotein (LDL) cholesterol measurement (mass/volume)on 02-22-2022 Cholesterol in LDL [Mass/Vol] 87 mg/dL 0-130 [facility] Work Phone: Absolute lymphocyte counton 02-21-2022 Lymphocytes Auto (Unsp spec) [#/Vol] 1.70 10*3/uL 0.83-4.51 [facility] Work Phone: Basophil percentageon 2021 Basophils/100 WBC (Bld) 0.5 % 0-1 [facility] Work Phone: Chloride [Moles/Vol] 108 mmol/L 98-107 [facility] Work Phone: Eosinophils/100 WBC (Bld) 3.1 % 0-5 [facility] Work Phone: Glucose [Mass/Vol] 110 mg/dL 74-106 [facility] Work Phone: Comment on above: Fasting Glucose resu lt from 100 to 125 mg/dL suggests IMPAIRED HOMEOSTASIS per A.D.A. criteria. Neutrophils (Bld) [#/Vol] 5.2 10*3/uL 2.0-7.7 [facility] Work Phone: Neutrophils/100 WBC (Bld) 67.7 % 47-70 [facility] Work Phone: Potassium [Moles/Vol] 3.6 mmol/L 3.5-5.1 [facility] Work Phone: Sodium [Moles/Vol] 138 mmol/L 136-145 [facility] Work Phone: WBC (Bld) [#/Vol] 7.7 10*3/uL 4.4-11.0 [facility] Work Phone: Blood erythrocytes count (nu mber/volume)on 02-21-2022 RBC (Bld) [#/Vol] 3.67 10*6/uL 4.2-5.4 [facility] Work Phone: Blood hemoglobin measurement (mass/volume)on 02-21-2022 Hemoglobin (Bld) [Mass/Vol] 11.5 g/dL 12.0-15.0 [facility] Work Phone: [phone] Blood lymphocytes/100 leukoc yteson 02-21-2022 Lymphocytes/100 WBC (Bld) 22.1 % 19-41 [facility] Work Phone: [phone] Blood monocytes/100 leukocyt eson 02-21-2022 Monocytes/100 WBC (Bld) 6.5 % 0-10 [facility] Work Phone: [phone] Blood platelet mean volumeon 02-21-2022 Platelet mean volume (Bld) [Entitic vol] 10.2 fL 6.2-12.0 [facility] Work Phone: [phone] Determination of erythrocyte mean corpuscular volume (MCV)on 02-21-2022 MCV (RBC) [Entitic vol] 95.4 fL 81-99 [facility] Work Phone: [phone] Hematocrit Auto (Bld) [Volum e fraction]on 02-21-2022 Hematocrit (Bld) [Volume fraction] 35.0 % 37-47 [facility] Work Phone: [phone] Laboratory - Chemistry and C hemistry - challengeon 02-21-2022 CO2 [Moles/Vol] 23.0 mmol/L 21.0-32.0 [facility] Work Phone: [phone] Urea nitrogen/Creatinine [Mass ratio] 17.5 mg/mg 10-20 [facility] Work Phone: [phone] Laboratory - Hematology and Cell countson 02-21-2022 Erythrocyte distribution width (RBC) [Entitic vol] 43.9 fL 35.1-43.9 [facility] Work Phone: [phone] Erythrocyte distribution width (RBC) [Ratio] 12.6 % 11.6-14.6 [facility] Work Phone: [phone] Immature granulocytes/100 WBC (Bld) 0.100 % 0.0-0.9 [facility] Work Phone: [phone] Comment on above: IG% - Immature Granu locytes (promyelocytes, myelocytes and metamyelocytes) > 1% indicates that a LEFT SHIFT is Present. MCH (RBC) [Entitic mass] 31.3 pg 27.0-32.0 [facility] Work Phone: Nucleated RBC/100 WBC (Bld) [Ratio] 0 % 0-5 [facility] Work Phone: MCHC Auto (RBC) [Mass/Vol]on 02-21-2022 MCHC (RBC) [Mass/Vol] 32.9 g/dL 32-36 [facility] Work Phone: No Panel Informationon 02-21 Troponin I High Sensitivity 138 pg/mL 3.0-54.0 [facility] Work Phone: Comment on above: Critical Result(s) C alled at: 23:16:00 02/21/2022 by: Mk Chatman to [facility]. Results read back by same. Please Note: New Test Units and Gender Specific Reference Ranges. For more information see Policy Stat Procedure [place] High Sensitivity Troponin (TNIH) and attachments. Estimated Creatinine Clearance Calc 19.60 ml/min [facility] Work Phone: Estimated GFR (MDRD) Amer 38 mL/min >60 [facility] Work Phone: Comment on above: GFR Calc Estimated GFR (MDRD) Non-Af Amer 31 mL/min >60 [facility] Work Phone: Comment on above: Non- GFR Calc Troponin I High Sensitivity 153 pg/mL 3.0-54.0 [facility] Work Phone: Comment on above: Critical Result(s) C alled at: 17:26:27 02/21/2022 by: Mk Chatman to [facility]. Results read back by same. Please Note: New Test Units and Gender Specific Reference Ranges. For more information see Policy Stat Procedure [place] High Sensitivity Troponin (TNIH) and attachments. Platelets bldon 02-21-2022 Platelets (Bld) [#/Vol] 221 10*3/uL 150-450 [facility] Work Phone: Serum or plasma calcium dex urement (mass/volume)on 02-21-2022 Calcium [Mass/Vol] 9.4 mg/dL 8.5-10.1 [facility] Work Phone: Serum or plasma creatinine m easurement (mass/volume)on 02-21-2022 Creatinine [Mass/Vol] 1.66 mg/dL 0.55-1.02 [facility] Work [facility]: [phone] Comment on above: The validity of the calculated GFR & GFRAA in patients over 70 years has not been determined. Clinical correlation is essential. Serum or plasma urea nitroge n measurement (mass/volume)on 02-21-2022 Urea nitrogen [Mass/Vol] 29 mg/dL 7-18 [facility] Work Phone: Thin prep Papanicolaou smear with manual screeningon 02-21-2022 Thin prep Papanicolaou smear with manual screening 7 5-15 [facility] Work Phone: [phone] Absolute lymphocyte counton 02-13-2022 Lymphocytes Auto (Unsp spec) [#/Vol] 1.72 10*3/uL 0.83-4.51 [facility] Work Phone: Basophil percentageon 2021 Basophils/100 WBC (Bld) 0.6 % 0-1 [facility] Work Phone: Eosinophils/100 WBC (Bld) 5.2 % 0-5 [facility] Work Phone: [phone] Neutrophils (Bld) [#/Vol] 3.7 10*3/uL 2.0-7.7 [facility] Work Phone: Neutrophils/100 WBC (Bld) 59.8 % 47-70 [facility] Work Phone: WBC (Bld) [#/Vol] 6.2 10*3/uL 4.4-11.0 [facility] Work Phone: Blood erythrocytes count (nu mber/volume)on 02-13-2022 RBC (Bld) [#/Vol] 3.25 10*6/uL 4.2-5.4 [facility] Work Phone: Blood hemoglobin measurement (mass/volume)on 02-13-2022 Hemoglobin (Bld) [Mass/Vol] 10.6 g/dL 12.0-15.0 [facility] Work Phone: [phone] Blood lymphocytes/100 leukoc yteson 02-13-2022 Lymphocytes/100 WBC (Bld) 27.7 % 19-41 [facility] Work Phone: [phone] Blood monocytes/100 leukocyt eson 02-13-2022 Monocytes/100 WBC (Bld) 6.4 % 0-10 [facility] Work Phone: Blood platelet mean volumeon 02-13-2022 Platelet mean volume (Bld) [Entitic vol] 10.0 fL 6.2-12.0 [facility] Work Phone: Determination of erythrocyte mean corpuscular volume (MCV)on 02-13-2022 MCV (RBC) [Entitic vol] 97.5 fL 81-99 [facility] Work Phone: Hematocrit Auto (Bld) [Volum e fraction]on 02-13-2022 Hematocrit (Bld) [Volume fraction] 31.7 % 37-47 [facility] Work Phone: [phone] Hemoglobin in reticulocytes (mass per reticulocyte)on 02-13-2022 Hemoglobin (Reticulocytes) [Entitic mass] 34.6 pg 30-35 [facility] Work Phone: [phone] Iron measurement (mass/mass) on 02-13-2022 Iron (Unsp spec) [Mass/Mass] 80 ug/dL 50-170 [facility] Work Phone: [phone] Laboratory - Hematology and Cell countson 02-13-2022 Erythrocyte distribution width (RBC) [Entitic vol] 45.6 fL 35.1-43.9 [facility] Work Phone: [phone] Erythrocyte distribution width (RBC) [Ratio] 12.9 % 11.6-14.6 [facility] Work Phone: Immature granulocytes/100 WBC (Bld) 0.300 % 0.0-0.9 [facility] Work Phone: [phone] Comment on above: IG% - Immature Granu locytes (promyelocytes, myelocytes and metamyelocytes) > 1% indicates that a LEFT SHIFT is Present. MCH (RBC) [Entitic mass] 32.6 pg 27.0-32.0 [facility] Work Phone: Nucleated RBC/100 WBC (Bld) [Ratio] 0 % 0-5 [facility] Work Phone: [phone] MCHC Auto (RBC) [Mass/Vol]on 02-13-2022 MCHC (RBC) [Mass/Vol] 33.4 g/dL 32-36 [facility] Work Phone: No Panel Informationon 02-13 Immature Reticulocyte Fraction 3.80 % 3.00-15.90 [facility] Work Phone: Reticulocyte Count 1.34 % 0.5-1.5 [facility] Work Phone: Total Iron Binding Capacity 233 ug/dL 250-450 [facility] Work Phone: Platelets bldon 02-13-2022 Platelets (Bld) [#/Vol] 210 10*3/uL 150-450 [facility] Work Phone: Serum or plasma ferritin kemal surement (mass/volume)on 02-13-2022 Ferritin [Mass/Vol] 142 ng/mL 8-252 [facility] Work Phone: Serum or plasma iron saturat ion measurement (mass fraction)on 02-13-2022 Iron saturation [Mass fraction] 34.3 % 15.0-55.0 [facility] Work Phone: XR Thoracic spine AP and Lat eralon 09-25-2020 IMPRESSION: Spondylosis and osteopenia. No acute osseous abnormality identified. 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 DIVISION OF RADIOLOGY Provider, [facility] [place] - 09/25/2020 * * *Final Report* * [...] and osteopenia. No acute osseous abnormality identified. Welder Machine Operator[facility] Transcribe Date/Time: Sep 25 2020 3:32P Dictated by : LAVELLE CHURCHILL MD This examination was interpreted and the report reviewed and electronically signed by: LAVELLE CHURCHILL MD on Sep 25 2020 3:35PM EST [facility] Radiology Study observation (narrative) Lexy cardozo [facility] XR Thoracic spine AP and Lat eralOrdered By: [facility] Provider on 09-25-2020 [facility] Culture, urine Bacteria identified Cx Nom (U) Culture exhibits no growth. [facility] Work Phone: Bacteria identified Cx Nom (U) Klebsiella pneumoniae sp pneum [facility] Work Phone: Bacteria identified Cx Nom (U) Positive [facility] Work Phone: ECG B/O W INTERP (MED OFFICE ) [facility] Vital Signs Date Time Vital Sign Value Performing Clinician Facility 02-22-2025 13:31-0400 Body height 157.[address] Anay Schuler MD Work Phone: 4(126)372-510723 [place] [address] 02-22-2025 13:31-0400 Body mass index (BMI) [Ratio] 23.9 kg/m2 Dr. Anay Schuler MD Work Phone: 4(277)588-112623 [place] [address] 02-22-2025 13:31-0400 Body weight 59.[address] Anay Schuler MD Work Phone: 2(087)177-326223 [place] [address] 02-22-2025 13:31-0400 Diastolic blood pressure 76 mm[Hg] Dr. Anay Schuler MD Work Phone: 5(430)994-736523 [place] [address] 02-22-2025 13:31-0400 Heart rate 50 /min Dr. Anay Schuler MD Work Phone: 1(240)925-429823 [place] [address] 02-22-2025 13:31-0400 Systolic blood pressure 152 mm[Hg] Dr. Anay Schuler MD Work Phone: 9(971)805-951123 [place] [address] 01-09-2025 11:55-0400 Diastolic blood pressure 61 mm[Hg] Dr. Anay Schuler MD Work Phone: 1(403)716-973023 [place] [address] 01-09-2025 11:55-0400 Systolic blood pressure 170 mm[Hg] Dr. Anay Schuler MD Work Phone: 2(673)411-165523 [place] [address] 01-09-2025 11:32-0400 Body height 157.[address] Anay Schuler MD Work Phone: 9(527)486-500323 [place] [address] 01-09-2025 11:32-0400 Body mass index (BMI) [Ratio] 24.1 kg/m2 Dr. Anay Schuler MD Work Phone: 3(641)589-360523 [place] [address] 01-09-2025 11:32-0400 Body weight 59.[address] Anay Schuler MD Work Phone: [facility] 01-09-2025 11:32-0400 Heart rate 52 /min Dr. Anay Schuler MD Work Phone: [facility] 01-09-2025 11:32-0400 Respiratory rate 18 /min Dr. Anay Schuler MD Work Phone: [facility] 01-09-2025 11:32-0400 SaO2% (BldA) [Mass fraction] 96 % Dr. Anay Schuler MD Work Phone: [facility] 01-03-2025 14:09-0400 Body mass index (BMI) [Ratio] 23.59 kg/m2 Anay Schuler MD Work Phone: [facility] 01-03-2025 14:09-0400 Body weight 58.51 kg Anay Schuler MD Work Phone: [facility] 01-03-2025 14:09-0400 Diastolic blood pressure 65 mm[Hg] Anay Schuler MD Work Phone: [facility] 01-03-2025 14:09-0400 Heart rate 58 /min Anay Schuler MD Work Phone: [facility] 01-03-2025 14:09-0400 Respiratory rate 16 /min Anay Schuler MD Work Phone: [facility] 01-03-2025 14:09-0400 Systolic blood pressure 164 mm[Hg] Anay Schuler MD Work Phone: [facility] 12-21-2024 14:41-0400 Diastolic blood pressure 60 mm[Hg] Silvio Older ACCOUNTING SUPERVISOR.INJECTOR ASSEMBLER Work Phone: [facility] 12-21-2024 14:41-0400 Systolic blood pressure 194 mm[Hg] Silvio Older ACCOUNTING SUPERVISOR.INJECTOR ASSEMBLER Work Phone: [facility] 12-21-2024 13:56-0400 Body mass index (BMI) [Ratio] 23.37 kg/m2 Silvio Older ACCOUNTING SUPERVISOR.INJECTOR ASSEMBLER Work Phone: [facility] 12-21-2024 13:56-0400 Body weight 57.97 kg Silvio Older ACCOUNTING SUPERVISOR.INJECTOR ASSEMBLER Work Phone: [facility] 12-21-2024 13:56-0400 Heart rate 56 /min Silvio Older ACCOUNTING SUPERVISOR.INJECTOR ASSEMBLER Work Phone: [facility] 12-21-2024 13:56-0400 Respiratory rate 16 /min Silvio Older ACCOUNTING SUPERVISOR.INJECTOR ASSEMBLER Work Phone: [facility] 12-12-2024 13:40-0400 Body mass index (BMI) [Ratio] 24.87 kg/m2 Silvio Older ACCOUNTING SUPERVISOR.INJECTOR ASSEMBLER Work Phone: [facility] 12-12-2024 13:40-0400 Body temperature 97.59 [degF] Silvio Older ACCOUNTING SUPERVISOR.INJECTOR ASSEMBLER Work Phone: [facility] 12-12-2024 13:40-0400 Body weight 61.69 kg Silvio Older ACCOUNTING SUPERVISOR.INJECTOR ASSEMBLER Work Phone: [facility] 12-12-2024 13:40-0400 Diastolic blood pressure 92 mm[Hg] Silvio Older ACCOUNTING SUPERVISOR.INJECTOR ASSEMBLER Work Phone: [facility] 12-12-2024 13:40-0400 Heart rate 62 /min Silvio Older ACCOUNTING SUPERVISOR.INJECTOR ASSEMBLER Work Phone: [facility] 12-12-2024 13:40-0400 Respiratory rate 16 /min Silvio Older ACCOUNTING SUPERVISOR.INJECTOR ASSEMBLER Work Phone: [facility] 12-12-2024 13:40-0400 SaO2% (BldA) [Mass fraction] 93 % Silvio Older ACCOUNTING SUPERVISOR.INJECTOR ASSEMBLER Work Phone: [facility] 12-12-2024 13:40-0400 Systolic blood pressure 158 mm[Hg] Silvio Older ACCOUNTING SUPERVISOR.INJECTOR ASSEMBLER Work Phone: [facility] 11-28-2024 15:50-0400 Body mass index (BMI) [Ratio] 25.46 kg/m2 Anay Schuler MD Work Phone: [facility] 11-28-2024 15:50-0400 Body weight 63.14 kg Anay Schuler MD Work Phone: 4(420)103-359032 [place] [address] 11-28-2024 15:50-0400 Diastolic blood pressure 94 mm[Hg] Anay Schuler MD Work Phone: [facility] 11-28-2024 15:50-0400 Heart rate 56 /min Anay Schuler MD Work Phone: 4(757)091-153632 [place] [address] 11-28-2024 15:50-0400 Respiratory rate 18 /min Anay Schuler MD Work Phone: 0(966)176-890932 [place] [address] 11-28-2024 15:50-0400 Systolic blood pressure 152 mm[Hg] Anay Schuler MD Work Phone: 2(040)478-045432 [place] [address] 11-25-2024 13:55-0400 Body height 157.[address] Anay Schuler MD Work Phone: 2(749)804-088123 [place] [address] 11-25-2024 13:55-0400 Body mass index (BMI) [Ratio] 25.7 kg/m2 Dr. Anay Schuler MD Work Phone: 4(156)214-234823 [place] [address] 11-25-2024 13:55-0400 Body weight 63.[address] Anay Schuler MD Work Phone: 0(984)930-360723 [place] [address] 11-25-2024 13:55-0400 Diastolic blood pressure 67 mm[Hg] Dr. Anay Schuler MD Work Phone: 3(712)988-425923 [place] [address] 11-25-2024 13:55-0400 Heart rate 64 /min Dr. Anay Schuler MD Work Phone: 5(869)907-690923 [place] [address] 11-25-2024 13:55-0400 Respiratory rate 16 /min Dr. Anay Schuler MD Work Phone: 2(776)485-983423 [place] [address] 11-25-2024 13:55-0400 Systolic blood pressure 223 mm[Hg] Dr. Anay Schuler MD Work Phone: 8(574)662-450223 [place] [address] 11-19-2024 15:23-0400 Diastolic blood pressure 87 mm[Hg] Dr. Anay Schuler MD Work Phone: 2(370)212-837823 [place] [address] 11-19-2024 15:23-0400 Systolic blood pressure 178 mm[Hg] Dr. Anay Schuler MD Work Phone: 6(662)852-332823 [place] [address] 11-19-2024 15:00-0400 Heart rate 44 /min Dr. Anay Schuler MD Work Phone: 6(702)097-109123 [place] [address] 11-19-2024 15:00-0400 SaO2% (BldA) [Mass fraction] 96 % Dr. Anay Schuler MD Work Phone: 5(247)790-473623 [place] [address] 11-19-2024 14:55-0400 Body temperature 98.4 [degF] Dr. Anay Schuler MD Work Phone: 8(017)122-609323 [place] [address] 11-19-2024 14:55-0400 Respiratory rate 16 /min Dr. Anay Schuler MD Work Phone: 8(772)380-942323 [place] [address] 11-19-2024 09:12-0400 Body mass index (BMI) [Ratio] 25.4 kg/m2 Dr. Anay Schuler MD Work Phone: 2(291)292-402723 [place] [address] 11-19-2024 09:12-0400 Body weight 63.[address] Anay Schuler MD Work Phone: 1(742)576-841223 [place] [address] 11-15-2024 11:30-0400 Diastolic blood pressure 89 mm[Hg] Dr. Anay Schuler MD Work Phone: 4(694)187-468823 [place] [address] 11-15-2024 11:30-0400 Heart rate 118 /min Dr. Anay Schuler MD Work Phone: 6(726)563-854123 [place] [address] 11-15-2024 11:30-0400 Respiratory rate 18 /min Dr. Anay Schuler MD Work Phone: 6(222)699-565923 [place] [address] 11-15-2024 11:30-0400 SaO2% (BldA) [Mass fraction] 95 % Dr. Anay Schuler MD Work Phone: 3(251)654-920323 [place] [address] 11-15-2024 11:30-0400 Systolic blood pressure 123 mm[Hg] Dr. Anay Schuler MD Work Phone: [facility] 11-14-2024 12:52-0400 Diastolic blood pressure 100 mm[Hg] Anay Schuler MD Work Phone: [facility] 11-14-2024 12:52-0400 Heart rate 119 /min Anay Schuler MD Work Phone: [facility] 11-14-2024 12:52-0400 Systolic blood pressure 158 mm[Hg] Anay Schuler MD Work Phone: 0(330)138-757732 [place] [address] 11-14-2024 12:51-0400 Body mass index (BMI) [Ratio] 25.31 kg/m2 Anay Schuler MD Work Phone: 8(927)585-895332 [place] [address] 11-14-2024 12:51-0400 Body weight 62.78 kg Anay Schuler MD Work Phone: 2(705)664-903032 [place] [address] 11-14-2024 12:51-0400 Respiratory rate 16 /min Anay Schuler MD Work Phone: 8(902)338-588532 [place] [address] 11-14-2024 12:51-0400 SaO2% (BldA) [Mass fraction] 99 % Anay Schuler MD Work Phone: 9(048)026-266432 [place] [address] 11-11-2024 13:58-0400 Body height 157.[address] Anay Schuler MD Work Phone: 8(623)143-710923 [place] [address] 11-11-2024 13:58-0400 Body mass index (BMI) [Ratio] 24.8 kg/m2 Dr. Anay Schuler MD Work Phone: 4(645)253-903736 [place] [address] 11-11-2024 13:58-0400 Body weight 61.[address] Anay Schuler MD Work Phone: 9(510)787-266336 [place] [address] 11-11-2024 13:58-0400 Diastolic blood pressure 96 mm[Hg] Dr. Anay Schuler MD Work Phone: 5(702)319-153223 [place] [address] 11-11-2024 13:58-0400 Heart rate 133 /min Dr. Anay Schuler MD Work Phone: 9(651)077-751223 [place] [address] 11-11-2024 13:58-0400 Respiratory rate 18 /min Dr. Anay Schluer MD Work Phone: 8(000)249-830323 [place] [address] 11-11-2024 13:58-0400 SaO2% (BldA) [Mass fraction] 95 % Dr. Anay Schuler MD Work Phone: 9(581)331-262523 [place] [address] 11-11-2024 13:58-0400 Systolic blood pressure 137 mm[Hg] Dr. Anay Schuler MD Work Phone: 8(783)921-043023 [place] [address] 11-03-2024 11:10-0400 Body temperature 97.3 [degF] Dr. Anay Schuler MD Work Phone: 4(831)575-082523 [place] [address] 11-03-2024 11:10-0400 Diastolic blood pressure 60 mm[Hg] Dr. Anay Schuler MD Work Phone: 7(465)532-668023 [place] [address] 11-03-2024 11:10-0400 Heart rate 46 /min Dr. Anay Schuler MD Work Phone: 5(458)414-388823 [place] [address] 11-03-2024 11:10-0400 Respiratory rate 18 /min Dr. Anay Schuler MD Work Phone: 7(453)143-622723 [place] [address] 11-03-2024 11:10-0400 SaO2% (BldA) [Mass fraction] 100 % Dr. Anay Schuler MD Work Phone: 8(369)281-170223 [place] [address] 11-03-2024 11:10-0400 Systolic blood pressure 163 mm[Hg] Dr. Anay Schuler MD Work Phone: 1(700)831-028023 [place] [address] 11-03-2024 03:04-0400 Body mass index (BMI) [Ratio] 27.8 kg/m2 Dr. Anay Schuler MD Work Phone: 7(954)302-732823 [place] [address] 11-03-2024 03:04-0400 Body weight [address] Anay Schuler MD Work Phone: 3(331)291-227423 [place] [address] 11-02-2024 05:38-0400 Body mass index (BMI) [Ratio] 27.8 kg/m2 Dr. Anay Schuler MD Work Phone: 2(175)226-933223 [place] [address] 11-02-2024 05:38-0400 Body weight 69.[address] Anay Schuler MD Work Phone: 4(277)016-517823 [place] [address] 11-02-2024 03:20-0400 Body temperature 96.4 [degF] Dr. Anay Schuler MD Work Phone: 2(782)613-880723 [place] [address] 11-02-2024 03:20-0400 Diastolic blood pressure 53 mm[Hg] Dr. Anay Schuler MD Work Phone: 5(218)502-201223 [place] [address] 11-02-2024 03:20-0400 Heart rate 51 /min Dr. Anay Schuler MD Work Phone: 7(384)950-904123 [place] [address] 11-02-2024 03:20-0400 Respiratory rate 16 /min Dr. Anay Schuler MD Work Phone: 9(549)771-285923 [place] [address] 11-02-2024 03:20-0400 SaO2% (BldA) [Mass fraction] 96 % Dr. Anay Schuler MD Work Phone: 1(600)373-606423 [place] [address] 11-02-2024 03:20-0400 Systolic blood pressure 148 mm[Hg] Dr. Anay Schuler MD Work Phone: 3(551)259-700923 [place] [address] 11-01-2024 14:15-0400 Body height 157.[address] Anay Schuler MD Work Phone: 9(904)463-259923 [place] [address] 10-24-2024 13:15-0400 Body mass index (BMI) [Ratio] 25.6 kg/m2 Dr. Anay Schuler MD Work Phone: 5(950)665-915023 [place] [address] 10-24-2024 13:15-0400 Body weight 63.[address] Anay Schuler MD Work Phone: 7(803)879-980223 [place] [address] 10-24-2024 13:15-0400 Diastolic blood pressure 85 mm[Hg] Dr. Anay Schuler MD Work Phone: 0(625)949-981323 [place] [address] 10-24-2024 13:15-0400 Heart rate 116 /min Dr. Anay Schuler MD Work Phone: [facility] 10-24-2024 13:15-0400 Respiratory rate 18 /min Dr. Anay Schuler MD Work Phone: [facility] 10-24-2024 13:15-0400 SaO2% (BldA) [Mass fraction] 100 % Dr. Anay Schuler MD Work Phone: [facility] 10-24-2024 13:15-0400 Systolic blood pressure 114 mm[Hg] Dr. Anay Schuler MD Work Phone: [facility] 10-17-2024 13:37-0400 Body mass index (BMI) [Ratio] 24.87 kg/m2 Silvio Older ACCOUNTING SUPERVISOR.INJECTOR ASSEMBLER Work Phone: [facility] 10-17-2024 13:37-0400 Body temperature 96.8 [degF] Silvio Older ACCOUNTING SUPERVISOR.INJECTOR ASSEMBLER Work Phone: [facility] 10-17-2024 13:37-0400 Body weight 61.69 kg Silvio Older ACCOUNTING SUPERVISOR.INJECTOR ASSEMBLER Work Phone: [facility] 10-17-2024 13:37-0400 Diastolic blood pressure 84 mm[Hg] Silvio Older ACCOUNTING SUPERVISOR.INJECTOR ASSEMBLER Work Phone: [facility] 10-17-2024 13:37-0400 Heart rate 62 /min Silvio Older ACCOUNTING SUPERVISOR.INJECTOR ASSEMBLER Work Phone: [facility] 10-17-2024 13:37-0400 Respiratory rate 16 /min Silvio Older ACCOUNTING SUPERVISOR.INJECTOR ASSEMBLER Work Phone: [facility] 10-17-2024 13:37-0400 SaO2% (BldA) [Mass fraction] 100 % Silvio Older ACCOUNTING SUPERVISOR.INJECTOR ASSEMBLER Work Phone: [facility] 10-17-2024 13:37-0400 Systolic blood pressure 152 mm[Hg] Silvio Older ACCOUNTING SUPERVISOR.INJECTOR ASSEMBLER Work Phone: [facility] 10-13-2024 07:58-0400 Body temperature 97.9 [degF] Dr. Anay Schuler MD Work Phone: 9(175)140-080923 [place] [address] 10-13-2024 07:58-0400 Diastolic blood pressure 73 mm[Hg] Dr. Anay Schuler MD Work Phone: 3(768)274-915523 [place] [address] 10-13-2024 07:58-0400 Heart rate 80 /min Dr. Anay Schuler MD Work Phone: 2(911)196-606023 [place] [address] 10-13-2024 07:58-0400 Respiratory rate 16 /min Dr. Anay Schuler MD Work Phone: 7(245)177-787823 [place] [address] 10-13-2024 07:58-0400 SaO2% (BldA) [Mass fraction] 98 % Dr. Anay Schuler MD Work Phone: 7(072)340-671523 [place] [address] 10-13-2024 07:58-0400 Systolic blood pressure 149 mm[Hg] Dr. Anay Schuler MD Work Phone: 4(106)245-429723 [place] [address] 10-13-2024 02:46-0400 Body mass index (BMI) [Ratio] 26.6 kg/m2 Dr. Anay Schuler MD Work Phone: 3(899)178-818423 [place] [address] 10-13-2024 02:46-0400 Body weight [address] Anay Schuler MD Work Phone: 5(536)626-430223 [place] [address] 10-11-2024 15:09-0400 Diastolic blood pressure 80 mm[Hg] Dr. Anay Schuler MD Work Phone: 2(140)243-620523 [place] [address] 10-11-2024 15:09-0400 Heart rate 130 /min Dr. Anay Schuler MD Work Phone: 6(669)412-162023 [place] [address] 10-11-2024 15:09-0400 Respiratory rate 18 /min Dr. Anay Schuler MD Work Phone: 2(000)909-507323 [place] [address] 10-11-2024 15:09-0400 SaO2% (BldA) [Mass fraction] 97 % Dr. Anay Schuler MD Work Phone: 1(104)615-598223 [place] [address] 10-11-2024 15:09-0400 Systolic blood pressure 117 mm[Hg] Dr. Anay Schuler MD Work Phone: [facility] 10-11-2024 11:08-0400 Body height 157.[address] Anay Schuler MD Work Phone: [facility] 10-11-2024 11:08-0400 Body mass index (BMI) [Ratio] 25.9 kg/m2 Dr. Anay Schuler MD Work Phone: [facility] 10-11-2024 11:08-0400 Body temperature 97.7 [degF] Dr. Anay Schuler MD Work Phone: [facility] 10-11-2024 11:08-0400 Body weight 64.[address] Anay Schuler MD Work Phone: [facility] 10-08-2024 12:00-0400 Body mass index (BMI) [Ratio] 26.01 kg/m2 Michael Praisler-Dale ACCOUNTING SUPERVISOR.INJECTOR ASSEMBLER Work Phone: [facility] 10-08-2024 12:00-0400 Body temperature 99.19 [degF] Michael Praisler-Wood ACCOUNTING SUPERVISOR.INJECTOR ASSEMBLER Work Phone: [facility] 10-08-2024 12:00-0400 Body weight 64.5 kg Michael Praisler-Wood ACCOUNTING SUPERVISOR.INJECTOR ASSEMBLER Work Phone: [facility] 10-08-2024 12:00-0400 Diastolic blood pressure 72 mm[Hg] Michael Praisler-Wood ACCOUNTING SUPERVISOR.INJECTOR ASSEMBLER Work Phone: [facility] 10-08-2024 12:00-0400 Heart rate 62 /min Michael Praisler-Wood ACCOUNTING SUPERVISOR.INJECTOR ASSEMBLER Work Phone: [facility] 10-08-2024 12:00-0400 Respiratory rate 16 /min Michael Praisler-Wood ACCOUNTING SUPERVISOR.INJECTOR ASSEMBLER Work Phone: [facility] 10-08-2024 12:00-0400 SaO2% (BldA) [Mass fraction] 95 % Michael Praisler-Wood ACCOUNTING SUPERVISOR.INJECTOR ASSEMBLER Work Phone: [facility] 10-08-2024 12:00-0400 Systolic blood pressure 132 mm[Hg] Michael Praisler-Wood ACCOUNTING SUPERVISOR.INJECTOR ASSEMBLER Work Phone: [facility] 09-26-2024 13:46-0400 Body mass index (BMI) [Ratio] 25.61 kg/m2 Silvio Older ACCOUNTING SUPERVISOR.INJECTOR ASSEMBLER Work Phone: [facility] 09-26-2024 13:46-0400 Body temperature 97.11 [degF] Silvio Older ACCOUNTING SUPERVISOR.INJECTOR ASSEMBLER Work Phone: [facility] 09-26-2024 13:46-0400 Body weight 63.5 kg Silvio Older ACCOUNTING SUPERVISOR.INJECTOR ASSEMBLER Work Phone: [facility] 09-26-2024 13:46-0400 Diastolic blood pressure 82 mm[Hg] Silvio Older ACCOUNTING SUPERVISOR.INJECTOR ASSEMBLER Work Phone: [facility] 09-26-2024 13:46-0400 Heart rate 60 /min Silvio Older ACCOUNTING SUPERVISOR.INJECTOR ASSEMBLER Work Phone: [facility] 09-26-2024 13:46-0400 Respiratory rate 16 /min Silvio Older ACCOUNTING SUPERVISOR.INJECTOR ASSEMBLER Work Phone: [facility] 09-26-2024 13:46-0400 SaO2% (BldA) [Mass fraction] 100 % Silvio Older ACCOUNTING SUPERVISOR.INJECTOR ASSEMBLER Work Phone: [facility] 09-26-2024 13:46-0400 Systolic blood pressure 138 mm[Hg] Silvio Older ACCOUNTING SUPERVISOR.INJECTOR ASSEMBLER Work Phone: [facility] 09-09-2024 15:24-0400 Body mass index (BMI) [Ratio] 25.42 kg/m2 Anay Schuler MD Work Phone: [facility] 09-09-2024 15:24-0400 Body weight 63.05 kg Anay Schuler MD Work Phone: [facility] 09-09-2024 15:24-0400 Diastolic blood pressure 70 mm[Hg] Anay Schuler MD Work Phone: [phone] [place] [id number] 09-09-2024 15:24-0400 Heart rate 58 /min Anay Schuler MD Work Phone: [facility] 09-09-2024 15:24-0400 Respiratory rate 12 /min Anay Schuler MD Work Phone: [phone] [place] [id number] 09-09-2024 15:24-0400 SaO2% (BldA) [Mass fraction] 97 % Anay Schuler MD Work Phone: [phone] [place] [address] 09-09-2024 15:24-0400 Systolic blood pressure 122 mm[Hg] Anay Schuler MD Work Phone: 6(568)844-152499 [address] [address] 08-27-2024 01:51-0500 Body temperature 98.1 [degF] Dr. Anay Schuler MD Work Phone: 1(241)180-873423 [place] [address] 08-27-2024 01:51-0500 Diastolic blood pressure 60 mm[Hg] Dr. Anay Schuler MD Work Phone: 8(031)945-471123 [place] [address] 08-27-2024 01:51-0500 Heart rate 60 /min Dr. Anay Schuler MD Work Phone: 1(457)467-156923 [place] [address] 08-27-2024 01:51-0500 Respiratory rate 18 /min Dr. Anay Schuler MD Work Phone: 0(644)138-099223 [place] [address] 08-27-2024 01:51-0500 SaO2% (BldA) [Mass fraction] 94 % Dr. Anay Schuler MD Work Phone: 4(794)976-545023 [place] [address] 08-27-2024 01:51-0500 Systolic blood pressure 185 mm[Hg] Dr. Anay Schuler MD Work Phone: 3(669)341-205123 [place] [address] 08-26-2024 23:51-0500 Body mass index (BMI) [Ratio] 26.4 kg/m2 Dr. Anay Schuler MD Work Phone: 9(181)139-825623 [place] [address] 08-26-2024 23:51-0500 Body weight 65.[address] Anay Schuler MD Work Phone: 4(034)667-581936 [place] [address] 08-02-2024 13:42-0500 Body height 157.5 cm Anay Schuler MD Work Phone: 1(017)002-725032 [place] [address] 08-02-2024 13:42-0500 Body mass index (BMI) [Ratio] 25.83 kg/m2 Anay Schuler MD Work Phone: 6(551)923-444032 [place] [address] 08-02-2024 13:42-0500 Body weight 64.05 kg Anay Schuler MD Work Phone: 8(789)436-986032 [place] [address] 08-02-2024 13:42-0500 Diastolic blood pressure 78 mm[Hg] Anay Schuler MD Work Phone: 8(813)099-625032 [place] [address] 08-02-2024 13:42-0500 Heart rate 67 /min Anay Schuler MD Work Phone: 7(158)667-805032 [place] [address] 08-02-2024 13:42-0500 SaO2% (BldA) [Mass fraction] 98 % Anay Schuler MD Work Phone: 8(347)065-265932 [place] [address] 08-02-2024 13:42-0500 Systolic blood pressure 124 mm[Hg] Anay Schuler MD Work Phone: 7(571)890-737499 [place] [address] 06-14-2024 12:52-0500 Body mass index (BMI) [Ratio] 25.9 kg/m2 Dr. Anay Schuler MD Work Phone: 2(348)480-769236 [place] [address] 06-14-2024 12:52-0500 Body weight 64.[address] Anay Schuler MD Work Phone: 4(126)201-057323 [place] [address] 06-14-2024 12:52-0500 Diastolic blood pressure 61 mm[Hg] Dr. Anay Schuler MD Work Phone: 8(204)227-306923 [place] [address] 06-14-2024 12:52-0500 Heart rate 63 /min Dr. Anay Schuler MD Work Phone: 2(344)956-782523 [place] [address] 06-14-2024 12:52-0500 SaO2% (BldA) [Mass fraction] 96 % Dr. Anay Schuler MD Work Phone: [facility] 06-14-2024 12:52-0500 Systolic blood pressure 175 mm[Hg] Dr. Anay Schuler MD Work Phone: [facility] 06-10-2024 15:33-0500 Body mass index (BMI) [Ratio] 25.81 kg/m2 Jeremy Yu MD Work Phone: [facility] 06-10-2024 15:33-0500 Body temperature 97.81 [degF] Jeremy Yu MD Work Phone: [facility] 06-10-2024 15:33-0500 Body weight 64 kg Jeremy Yu MD Work Phone: [facility] 06-10-2024 15:33-0500 Diastolic blood pressure 72 mm[Hg] Jeremy Yu MD Work Phone: [facility] 06-10-2024 15:33-0500 Heart rate 76 /min Jeremy Yu MD Work Phone: [facility] 06-10-2024 15:33-0500 Respiratory rate 16 /min Jeremy Yu MD Work Phone: [facility] 06-10-2024 15:33-0500 SaO2% (BldA) [Mass fraction] 98 % Jeremy Yu MD Work Phone: [facility] 06-10-2024 15:33-0500 Systolic blood pressure 134 mm[Hg] Jeremy Yu MD Work Phone: [facility] 05-30-2024 13:39-0500 Body height 157.5 cm Anay Schuler MD Work Phone: [facility] 05-30-2024 13:39-0500 Body mass index (BMI) [Ratio] 25.4 kg/m2 Anay Schuler MD Work Phone: [facility] 05-30-2024 13:39-0500 Body weight 63 kg Anay Schuler MD Work Phone: [facility] 05-30-2024 13:39-0500 Diastolic blood pressure 60 mm[Hg] Anay Schuler MD Work Phone: [facility] 05-30-2024 13:39-0500 Heart rate 62 /min Anay Schuler MD Work Phone: [facility] 05-30-2024 13:39-0500 Respiratory rate 14 /min Anay Schuler MD Work Phone: [facility] 05-30-2024 13:39-0500 Systolic blood pressure 140 mm[Hg] Anay Schuler MD Work Phone: [facility] 01-11-2024 14:39-0400 Body height 157.5 cm Anay Schuler MD Work Phone: [facility] 01-11-2024 14:39-0400 Body mass index (BMI) [Ratio] 25.79 kg/m2 Anay Schuler MD Work Phone: [facility] 01-11-2024 14:39-0400 Body weight 63.96 kg Anay Schuler MD Work Phone: [facility] 01-11-2024 14:39-0400 Diastolic blood pressure 72 mm[Hg] Anay Schuler MD Work Phone: [facility] 01-11-2024 14:39-0400 Heart rate 61 /min Anay Schuler MD Work Phone: [facility] 01-11-2024 14:39-0400 Respiratory rate 16 /min Anay Schuler MD Work Phone: [facility] 01-11-2024 14:39-0400 Systolic blood pressure 128 mm[Hg] Anay Schuler MD Work Phone: [facility] 10-28-2023 14:05-0400 Body height 157.[address] Anay Schuler Work Phone: [facility] 10-28-2023 14:05-0400 Body mass index (BMI) [Ratio] 26.3 kg/m2 Dr. Anay Schuler Work Phone: [facility] 10-28-2023 14:05-0400 Body weight 65.[address] Anay Schuler Work Phone: [facility] 10-28-2023 14:05-0400 Diastolic blood pressure 94 mm[Hg] Dr. Anay Schuler Work Phone: 6(116)735-709536 [place] [address] 10-28-2023 14:05-0400 Heart rate 54 /min Dr. Anay Schuler Work Phone: [facility] 10-28-2023 14:05-0400 Respiratory rate 18 /min Dr. Anay Schuler Work Phone: [facility] 10-28-2023 14:05-0400 SaO2% (BldA) [Mass fraction] 98 % Dr. Anay Schuler Work Phone: 1(998)965-179736 [place] [address] 10-28-2023 14:05-0400 Systolic blood pressure 176 mm[Hg] Dr. Anay Schuler Work Phone: [facility] 09-28-2023 14:05-0400 Body height 157.5 cm Megha Denbow PA-C Work Phone: [facility] 09-28-2023 14:05-0400 Body temperature 97.59 [degF] Megha Denbow PA-C Work Phone: [facility] 09-28-2023 14:05-0400 Body weight 63.96 kg Megha Denbow PA-C Work Phone: [facility] 09-28-2023 14:05-0400 Diastolic blood pressure 80 mm[Hg] Megha Denbow PA-C Work Phone: [facility] 09-28-2023 14:05-0400 Heart rate 68 /min Megha Denbow PA-C Work Phone: [facility] 09-28-2023 14:05-0400 Respiratory rate 12 /min Megha Denbow PA-C Work Phone: [facility] 09-28-2023 14:05-0400 SaO2% (BldA) [Mass fraction] 99 % Megha Denbow PA-C Work Phone: [facility] 09-28-2023 14:05-0400 Systolic blood pressure 150 mm[Hg] Megha Denbow PA-C Work Phone: [facility] 08-20-2023 14:01-0500 Diastolic blood pressure 84 mm[Hg] Dr. Anay Schuler Work Phone: [facility] 08-20-2023 14:01-0500 Systolic blood pressure 138 mm[Hg] Dr. Anay Schuler Work Phone: 3(726)638-182423 [place] [address] 08-20-2023 13:28-0500 Body height 157.[address] Anay Schuler Work Phone: 7(151)331-420023 [place] [address] 08-20-2023 13:28-0500 Body mass index (BMI) [Ratio] 25.6 kg/m2 Dr. Anay Schuler Work Phone: 7(048)387-286036 [place] [address] 08-20-2023 13:28-0500 Body weight 63.[address] Anay Schuler Work Phone: 1(890)480-690123 [place] [address] 08-20-2023 13:28-0500 Heart rate 57 /min Dr. Anay Schuler Work Phone: 6(994)615-921423 [place] [address] 08-20-2023 13:28-0500 Respiratory rate 18 /min Dr. Anay Schuler Work Phone: 2(896)205-092636 [place] [address] 08-20-2023 13:28-0500 SaO2% (BldA) [Mass fraction] 97 % Dr. Anay Schuler Work Phone: [facility] 08-18-2023 14:04-0500 Diastolic blood pressure 64 mm[Hg] Megha Denbow PA-C Work Phone: [facility] 08-18-2023 14:04-0500 Systolic blood pressure 132 mm[Hg] Megha Denbow PA-C Work Phone: [facility] 08-18-2023 13:02-0500 Body height 157.5 cm Meghaapril Michellebow PA-C Work Phone: [facility] 08-18-2023 13:02-0500 Body temperature 96.8 [degF] Meghaapril Michellebow PA-C Work Phone: [facility] 08-18-2023 13:02-0500 Body weight 63.05 kg Megha Denbow PA-C Work Phone: [facility] 08-18-2023 13:02-0500 Heart rate 62 /min Megha Denbow PA-C Work Phone: [facility] 08-18-2023 13:02-0500 Respiratory rate 12 /min Megha Denbow PA-C Work Phone: [facility] 08-18-2023 13:02-0500 SaO2% (BldA) [Mass fraction] 100 % Meghaapril Michellebow PA-C Work Phone: [facility] 07-16-2023 16:30-0500 Body temperature 98 [degF] Dr. Anay Schuler Work Phone: [facility] 07-16-2023 16:30-0500 Diastolic blood pressure 44 mm[Hg] Dr. Anay Schuler Work Phone: [facility] 07-16-2023 16:30-0500 Heart rate 76 /min Dr. Anay Schuler Work Phone: [facility] 07-16-2023 16:30-0500 Respiratory rate 17 /min Dr. Anay Schuler Work Phone: [facility] 07-16-2023 16:30-0500 SaO2% (BldA) [Mass fraction] 96 % Dr. Anay Schuler Work Phone: [facility] 07-16-2023 16:30-0500 Systolic blood pressure 145 mm[Hg] Dr. Anay Schuler Work Phone: 7(726)341-432636 [place] [address] 07-16-2023 08:21-0500 Inhaled oxygen flow rate 2 L/min Dr. Anay Schuler Work Phone: 9(385)799-179523 [place] [address] 07-13-2023 16:26-0500 Body mass index (BMI) [Ratio] 25.3 kg/m2 Dr. Anay Schuler Work Phone: 7(016)183-615823 [place] [address] 07-13-2023 16:26-0500 Body weight 62.[address] Anay Schuler Work Phone: 2(810)236-874123 [place] [address] 07-13-2023 15:00-0500 Diastolic blood pressure 49 mm[Hg] Dr. Anay Schuler Work Phone: 7(991)398-799523 [place] [address] 07-13-2023 15:00-0500 Heart rate 62 /min Dr. Anay Schuler Work Phone: 0(810)146-198923 [place] [address] 07-13-2023 15:00-0500 Respiratory rate 17 /min Dr. Anay Schuler Work Phone: 7(422)311-543623 [place] [address] 07-13-2023 15:00-0500 SaO2% (BldA) [Mass fraction] 97 % Dr. Anay Schuler Work Phone: 9(970)138-896123 [place] [address] 07-13-2023 15:00-0500 Systolic blood pressure 147 mm[Hg] Dr. Anay Schuler Work Phone: 0(744)621-979023 [place] [address] 07-13-2023 13:07-0500 Inhaled oxygen flow rate 2 L/min Dr. Anay Schuler Work Phone: 0(252)883-144823 [place] [address] 07-13-2023 11:11-0500 Body height 162.[address] Anay Schuler Work Phone: 4(538)894-462723 [place] [address] 07-13-2023 11:11-0500 Body temperature 96.3 [degF] Dr. Anay Schuler Work Phone: 3(670)661-220523 [place] [address] 06-05-2023 10:51-0500 Body mass index (BMI) [Ratio] 25.4 kg/m2 Dr. Anay Schuler Work Phone: 9(452)117-386323 [place] [address] 06-05-2023 10:51-0500 Body temperature 98.8 [degF] Dr. Anay Schuler Work Phone: [facility] 06-05-2023 10:51-0500 Body weight 63.[address] Anay Schuler Work Phone: [facility] 06-05-2023 10:51-0500 Diastolic blood pressure 66 mm[Hg] Dr. Anay Schuler Work Phone: 2(769)562-639536 [place] [address] 06-05-2023 10:51-0500 Heart rate 70 /min Dr. Anay Schuler Work Phone: 4(886)875-887036 [place] [address] 06-05-2023 10:51-0500 Respiratory rate 16 /min Dr. Anay Schluer Work Phone: 3(512)064-867336 [place] [address] 06-05-2023 10:51-0500 SaO2% (BldA) [Mass fraction] 97 % Dr. Anay Schuler Work Phone: 1(173)756-849736 [place] [address] 06-05-2023 10:51-0500 Systolic blood pressure 176 mm[Hg] Dr. Anay Schuler Work Phone: [facility] 06-01-2023 14:33-0500 Diastolic blood pressure 67 mm[Hg] Jolie Marshall ACCOUNTING SUPERVISOR.INSTRUMENTATION TECHNOLOGIST Work Phone: [facility] 06-01-2023 14:33-0500 Heart rate 56 /min Jolie Marshall ACCOUNTING SUPERVISOR.INSTRUMENTATION TECHNOLOGIST Work Phone: [facility] 06-01-2023 14:33-0500 Systolic blood pressure 181 mm[Hg] Jolie Marshall ACCOUNTING SUPERVISOR.INSTRUMENTATION TECHNOLOGIST Work Phone: [facility] 06-01-2023 14:26-0500 Body weight 63.5 kg Jolie Marshall ACCOUNTING SUPERVISOR.INSTRUMENTATION TECHNOLOGIST Work Phone: [facility] 06-01-2023 14:26-0500 Respiratory rate 16 /min Jolie Marshall ACCOUNTING SUPERVISOR.INSTRUMENTATION TECHNOLOGIST Work Phone: [facility] 05-01-2023 13:59-0400 Diastolic blood pressure 74 mm[Hg] Toshia Drake ACCOUNTING SUPERVISOR.INJECTOR ASSEMBLER Work Phone: [facility] 05-01-2023 13:59-0400 Heart rate 60 /min Toshia Older ACCOUNTING SUPERVISOR.INJECTOR ASSEMBLER Work Phone: [facility] 05-01-2023 13:59-0400 Systolic blood pressure 172 mm[Hg] Toshia Older ACCOUNTING SUPERVISOR.INJECTOR ASSEMBLER Work Phone: [facility] 05-01-2023 13:58-0400 Body weight 61.69 kg Toshia Older ACCOUNTING SUPERVISOR.INJECTOR ASSEMBLER Work Phone: [facility] 05-01-2023 13:58-0400 Respiratory rate 14 /min Toshia Older ACCOUNTING SUPERVISOR.INJECTOR ASSEMBLER Work Phone: [facility] 04-15-2023 15:55-0400 Diastolic blood pressure 78 mm[Hg] Megha Denbow PA-C Work Phone: [facility] 04-15-2023 15:55-0400 Systolic blood pressure 200 mm[Hg] Megha Denbow PA-C Work Phone: [facility] 04-15-2023 15:03-0400 Body height 157.5 cm Megha Denbow PA-C Work Phone: [facility] 04-15-2023 15:03-0400 Body temperature 97.2 [degF] Megha Denbow PA-C Work Phone: [facility] 04-15-2023 15:03-0400 Body weight 58.97 kg Megha Denbow PA-C Work Phone: [facility] 04-15-2023 15:03-0400 Heart rate 64 /min Megha Denbow PA-C Work Phone: [facility] 04-15-2023 15:03-0400 Respiratory rate 12 /min Megha Denbow PA-C Work Phone: [facility] 04-15-2023 15:03-0400 SaO2% (BldA) [Mass fraction] 99 % Megha Denbow PA-C Work Phone: [facility] 04-09-2023 12:13-0400 Diastolic blood pressure 72 mm[Hg] Silvio Older ACCOUNTING SUPERVISOR.INJECTOR ASSEMBLER Work Phone: [facility] 04-09-2023 12:13-0400 Systolic blood pressure 189 mm[Hg] Silvio Older ACCOUNTING SUPERVISOR.INJECTOR ASSEMBLER Work Phone: [facility] 04-09-2023 12:03-0400 Body weight 60.78 kg Silvio Older ACCOUNTING SUPERVISOR.INJECTOR ASSEMBLER Work Phone: [facility] 04-09-2023 12:03-0400 Heart rate 60 /min Silvio Older ACCOUNTING SUPERVISOR.INJECTOR ASSEMBLER Work Phone: [facility] 04-09-2023 12:03-0400 Respiratory rate 16 /min Silvio Older ACCOUNTING SUPERVISOR.INJECTOR ASSEMBLER Work Phone: [facility] 04-09-2023 12:03-0400 SaO2% (BldA) [Mass fraction] 99 % Silvio Older ACCOUNTING SUPERVISOR.INJECTOR ASSEMBLER Work Phone: [facility] 01-27-2023 15:24-0400 Body height 157.5 cm Maura Giles MD Work Phone: [facility] 01-27-2023 15:24-0400 Body weight 59.42 kg Maura Giles MD Work Phone: [facility] 01-27-2023 15:24-0400 Diastolic blood pressure 77 mm[Hg] Maura Giles MD Work Phone: [facility] 01-27-2023 15:24-0400 Heart rate 74 /min Maura Giles MD Work Phone: [facility] 01-27-2023 15:24-0400 Respiratory rate 18 /min Maura Giles MD Work Phone: [facility] 01-27-2023 15:24-0400 SaO2% (BldA) [Mass fraction] 99 % Maura Giles MD Work Phone: [facility] 01-27-2023 15:24-0400 Systolic blood pressure 165 mm[Hg] Maura Giles MD Work Phone: [facility] 01-07-2023 13:26-0400 Body height 157.5 cm Silvio Older ACCOUNTING SUPERVISOR.INJECTOR ASSEMBLER Work Phone: [facility] 01-07-2023 13:26-0400 Body temperature 97.81 [degF] Silvio Older ACCOUNTING SUPERVISOR.INJECTOR ASSEMBLER Work Phone: [facility] 01-07-2023 13:26-0400 Body weight 60.33 kg Silvio Older ACCOUNTING SUPERVISOR.INJECTOR ASSEMBLER Work Phone: [facility] 01-07-2023 13:26-0400 Diastolic blood pressure 70 mm[Hg] Silvio Older ACCOUNTING SUPERVISOR.INJECTOR ASSEMBLER Work Phone: [facility] 01-07-2023 13:26-0400 Heart rate 58 /min Silvio Older ACCOUNTING SUPERVISOR.INJECTOR ASSEMBLER Work Phone: [facility] 01-07-2023 13:26-0400 Respiratory rate 12 /min Silvio Older ACCOUNTING SUPERVISOR.INJECTOR ASSEMBLER Work Phone: [facility] 01-07-2023 13:26-0400 SaO2% (BldA) [Mass fraction] 97 % Older ACCOUNTING SUPERVISOR.INJECTOR ASSEMBLER Work Phone: [facility] 01-07-2023 13:26-0400 Systolic blood pressure 140 mm[Hg] ACCOUNTING SUPERVISOR.INJECTOR ASSEMBLER Work Phone: [facility] 11-19-2022 11:20-0400 Body height 157.[address] Anay Schuler Work Phone: [facility] 11-19-2022 11:20-0400 Body mass index (BMI) [Ratio] 23.9 kg/m2 Dr. Anay Schuler Work Phone: [facility] 11-19-2022 11:20-0400 Body weight 59.[address] Anay Schuler Work Phone: [facility] 11-19-2022 11:20-0400 Diastolic blood pressure 79 mm[Hg] Dr. Anay Schuler Work Phone: [facility] 11-19-2022 11:20-0400 Heart rate 51 /min Dr. Anay Schuler Work Phone: 6(467)732-456023 [place] [address] 11-19-2022 11:20-0400 SaO2% (BldA) [Mass fraction] 98 % Dr. Anay Schuler Work Phone: 4(418)314-053823 [place] [address] 11-19-2022 11:20-0400 Systolic blood pressure 190 mm[Hg] Dr. Aany Schuler Work Phone: 6(645)786-566923 [place] [address] 10-31-2022 15:50-0400 Body temperature 97.6 [degF] Dr. Anay Schuler Work Phone: 7(799)482-415823 [place] [address] 10-31-2022 15:50-0400 Diastolic blood pressure 57 mm[Hg] Dr. Anay Schuler Work Phone: 0(297)260-461323 [place] [address] 10-31-2022 15:50-0400 Heart rate 48 /min Dr. Anay Schuler Work Phone: 0(376)611-666123 [place] [address] 10-31-2022 15:50-0400 Respiratory rate 16 /min Dr. Anay Schuler Work Phone: 1(701)393-828523 [place] [address] 10-31-2022 15:50-0400 SaO2% (BldA) [Mass fraction] 97 % Dr. Anay Schuler Work Phone: 1(543)703-894623 [place] [address] 10-31-2022 15:50-0400 Systolic blood pressure 178 mm[Hg] Dr. Anay Schuler Work Phone: 3(610)110-702123 [place] [address] 10-31-2022 14:53-0400 Body mass index (BMI) [Ratio] 23.8 kg/m2 Dr. Anay Schuler Work Phone: 2(919)122-732723 [place] [address] 10-31-2022 14:53-0400 Body weight [address] Anay Schuler Work Phone: 9(714)159-966423 [place] [address] 09-26-2022 12:56-0400 Body mass index (BMI) [Ratio] 24.3 kg/m2 Dr. Anay Schuler Work Phone: 3(684)450-963123 [place] [address] 09-26-2022 12:56-0400 Body weight 60.[address] Anay Schuler Work Phone: [facility] 09-26-2022 12:56-0400 Diastolic blood pressure 78 mm[Hg] Dr. Anay Schuler Work Phone: [facility] 09-26-2022 12:56-0400 Systolic blood pressure 190 mm[Hg] Dr. Anay Schuler Work Phone: [facility] 09-10-2022 14:49-0400 Diastolic blood pressure 92 mm[Hg] Anay Schuler MD Work Phone: [facility] 09-10-2022 14:49-0400 Systolic blood pressure 160 mm[Hg] Anay Schuler MD Work Phone: [facility] 09-10-2022 13:55-0400 Body temperature 97.5 [degF] Anay Schuler MD Work Phone: [facility] 09-10-2022 13:55-0400 Body weight 60.33 kg Anay Schuler MD Work Phone: [facility] 09-10-2022 13:55-0400 Heart rate 56 /min Anay Schuler MD Work Phone: [facility] 09-10-2022 13:55-0400 Respiratory rate 16 /min Anay Schuler MD Work Phone: [facility] 09-10-2022 13:55-0400 SaO2% (BldA) [Mass fraction] 100 % Anay Schuler MD Work Phone: [facility] 08-13-2022 13:04-0500 Body height 157.[address] Anay Schuler Work Phone: [facility] 08-13-2022 13:04-0500 Body mass index (BMI) [Ratio] 23.6 kg/m2 Dr. Anay Schuler Work Phone: [facility] 08-13-2022 13:04-0500 Body weight 58.[address] Anay Schuler Work Phone: 0(608)639-702736 [place] [address] 08-13-2022 13:04-0500 Diastolic blood pressure 64 mm[Hg] Dr. Anay Schuler Work Phone: 4(665)001-546423 [place] [address] 08-13-2022 13:04-0500 Heart rate 64 /min Dr. Anay Schuler Work Phone: 7(398)926-377123 [place] [address] 08-13-2022 13:04-0500 Respiratory rate 16 /min Dr. Anay Schuler Work Phone: 8(529)939-643423 [place] [address] 08-13-2022 13:04-0500 Systolic blood pressure 164 mm[Hg] Dr. Anay Schuler Work Phone: 6(667)360-211223 [place] [address] 06-06-2022 09:33-0500 Body height 157.[address] Aany Schuler Work Phone: 4(456)516-950723 [place] [address] 06-06-2022 09:33-0500 Body mass index (BMI) [Ratio] 23.4 kg/m2 Dr. Anay Schuler Work Phone: 6(195)481-171123 [place] [address] 06-06-2022 09:33-0500 Body weight 58.[address] Anay Schuler Work Phone: 3(052)088-179923 [place] [address] 06-06-2022 09:33-0500 Diastolic blood pressure 64 mm[Hg] Dr. Anay Schuler Work Phone: 9(484)290-436223 [place] [address] 06-06-2022 09:33-0500 Heart rate 80 /min Dr. Anay Schuler Work Phone: 4(149)951-526923 [place] [address] 06-06-2022 09:33-0500 Respiratory rate 16 /min Dr. Anay Schuler Work Phone: 5(013)106-908623 [place] [address] 06-06-2022 09:33-0500 Systolic blood pressure 148 mm[Hg] Dr. Anay Schuler Work Phone: 6(306)038-515823 [place] [address] 06-04-2022 12:42-0500 Heart rate 86 /min Dr. Anay Schuler Work Phone: 2(737)632-004023 [place] [address] 06-04-2022 12:42-0500 Respiratory rate 16 /min Dr. Anay Schuler Work Phone: [facility] 06-04-2022 12:42-0500 SaO2% (BldA) [Mass fraction] 100 % Dr. Anay Schuler Work Phone: [facility] 06-04-2022 09:42-0500 Body height 157.[address] Anay Schuler Work Phone: [facility] Work Phone: 06-04-2022 09:42-0500 Body mass index (BMI) [Ratio] 51.2 kg/m2 Dr. Anay Schuler Work Phone: 3(194)895-824476 [address] 06-04-2022 09:42-0500 Body temperature 97.2 [degF] Dr. Anay Schuler Work Phone: 3(984)721-505776 [address] 06-04-2022 09:42-0500 Body weight 127.[address] Anay Schuler Work Phone: 0(982)232-570376 [address] 06-04-2022 09:42-0500 Diastolic blood pressure 93 mm[Hg] Dr. Anay Schuler Work Phone: 6(314)090-195023 [place] [address] 06-04-2022 09:42-0500 Systolic blood pressure 140 mm[Hg] Dr. Anay Schuler Work Phone: 1(996)885-597223 [place] [address] 05-21-2022 15:02-0500 Body mass index (BMI) [Ratio] 23.3 kg/m2 Dr. Anay Schuler Work Phone: 3(081)386-555836 [place] [address] 05-21-2022 15:02-0500 Body weight 58.[address] Anay Schuler Work Phone: 0(228)379-165776 [address] 05-21-2022 15:02-0500 Diastolic blood pressure 88 mm[Hg] Dr. Anay Schuler Work Phone: 1(071)850-302536 [place] [address] 05-21-2022 15:02-0500 Heart rate 60 /min Dr. Anay Schuler Work Phone: [facility] 05-21-2022 15:02-0500 Respiratory rate 18 /min Dr. Anay Schuler Work Phone: 5(130)104-356136 [place] [address] 05-21-2022 15:02-0500 SaO2% (BldA) [Mass fraction] 99 % Dr. Anay Schuler Work Phone: 9(768)147-281436 [place] [address] 05-21-2022 15:02-0500 Systolic blood pressure 178 mm[Hg] Dr. Anay Schuler Work Phone: 9(925)498-341036 [place] [address] 05-07-2022 12:55-0500 Body height 157.5 cm Anay Schuler MD Work Phone: 7(296)057-081299 [address] [address] 05-07-2022 12:55-0500 Body weight 56.7 kg Anay Schuler MD Work Phone: 3(448)220-484299 [place] [address] 05-07-2022 12:55-0500 Diastolic blood pressure 76 mm[Hg] Anay Schuler MD Work Phone: 5(051)901-505799 [place] [address] 05-07-2022 12:55-0500 Heart rate 69 /min Anay Schuler MD Work Phone: 1(220)507-540399 [place] [address] 05-07-2022 12:55-0500 Respiratory rate 12 /min Anay Schuler MD Work Phone: 9(926)441-212532 [place] [address] 05-07-2022 12:55-0500 SaO2% (BldA) [Mass fraction] 99 % Anay Schuler MD Work Phone: 3(696)244-257932 [place] [address] 05-07-2022 12:55-0500 Systolic blood pressure 122 mm[Hg] Anay Schuler MD Work Phone: 1(681)524-025932 [place] [address] 05-05-2022 16:49-0500 Body temperature 97.9 [degF] Dr. Anay Schuler Work Phone: 5(398)449-566423 [place] [address] 05-05-2022 16:49-0500 Diastolic blood pressure 46 mm[Hg] Dr. Anay Schuler Work Phone: 0(588)557-275636 [place] [address] 05-05-2022 16:49-0500 Heart rate 57 /min Dr. Anay Schuler Work Phone: [facility] 05-05-2022 16:49-0500 Respiratory rate 14 /min Dr. Anay Schuler Work Phone: [facility] 05-05-2022 16:49-0500 SaO2% (BldA) [Mass fraction] 99 % Dr. Anay Schuler Work Phone: [facility] 05-05-2022 16:49-0500 Systolic blood pressure 155 mm[Hg] Dr. Anay Schuler Work Phone: [facility] 05-05-2022 13:52-0500 Body height 158.[address] Anay Schuler Work Phone: [facility] Work Phone: 05-05-2022 13:52-0500 Body weight 59.[address] Anay Schuler Work Phone: 1(141)512-102536 [place] [address] 05-05-2022 11:24-0500 SaO2% (BldA) [Mass fraction] 98 % Dr. Anay Schuler Work Phone: [facility] Work Phone: 05-05-2022 11:11-0500 Heart rate 57 /min Dr. Anay Schuler Work Phone: [facility] Work Phone: 05-05-2022 09:10-0500 Body temperature 97.9 [degF] Dr. Anay Schuler Work Phone: [facility] Work Phone: 05-05-2022 09:10-0500 Diastolic blood pressure 46 mm[Hg] Dr. Anay Schuler Work Phone: [facility] Work Phone: 05-05-2022 09:10-0500 Respiratory rate 14 /min Dr. Anay Schuler Work Phone: [facility] Work Phone: 05-05-2022 09:10-0500 Systolic blood pressure 155 mm[Hg] Dr. Anay Schuler Work Phone: [facility] Work Phone: 05-01-2022 21:54-0400 Body mass index (BMI) [Ratio] 23.6 kg/m2 Dr. Anay Schuler Work Phone: [facility] 05-01-2022 21:17-0400 Body temperature 98.1 [degF] Dr. Anay Schuler Work Phone: [facility] Work Phone: 05-01-2022 21:17-0400 Diastolic blood pressure 86 mm[Hg] Dr. Anay Schuler Work Phone: [facility] Work Phone: 05-01-2022 21:17-0400 Heart rate 58 /min Dr. Anay Schuler Work Phone: [facility] Work Phone: 05-01-2022 21:17-0400 Respiratory rate 16 /min Dr. Anay Schuler Work Phone: [facility] Work Phone: 05-01-2022 21:17-0400 SaO2% (BldA) [Mass fraction] 98 % Dr. Anay Schuler Work Phone: [facility] Work Phone: 05-01-2022 21:17-0400 Systolic blood pressure 140 mm[Hg] Dr. Anay Schuler Work Phone: [facility] Work Phone: 05-01-2022 18:52-0400 Inhaled oxygen flow rate 3 L/min Dr. Anay Schuler Work Phone: [facility] 05-01-2022 16:58-0400 Body height 157.[address] Anay Schuler Work Phone: [facility] Work Phone: 05-01-2022 16:58-0400 Body mass index (BMI) [Ratio] 24.3 kg/m2 Dr. Anay Schuler Work Phone: [facility] Work Phone: 05-01-2022 16:58-0400 Body weight 60.[address] Anay Schuler Work Phone: [facility] Work Phone: 05-01-2022 12:57-0400 Body mass index (BMI) [Ratio] 24.3 kg/m2 Dr. Anay Schuler Work Phone: 2(264)932-107523 [place] [address] 05-01-2022 12:57-0400 Body weight 60.[address] Anay Schuler Work Phone: 9(160)293-496723 [place] [address] 05-01-2022 12:57-0400 Diastolic blood pressure 67 mm[Hg] Dr. Anay Schuler Work Phone: 5(647)258-394223 [place] [address] 05-01-2022 12:57-0400 Heart rate 74 /min Dr. Anay Schuler Work Phone: 9(395)920-420323 [place] [address] 05-01-2022 12:57-0400 Respiratory rate 18 /min Dr. Anay Schuler Work Phone: 0(627)858-854823 [place] [address] 05-01-2022 12:57-0400 SaO2% (BldA) [Mass fraction] 97 % Dr. Anay Schuler Work Phone: 6(169)176-521936 [place] [address] 05-01-2022 12:57-0400 Systolic blood pressure 100 mm[Hg] Dr. Anay Schuler Work Phone: 8(827)078-708923 [place] [address] 04-30-2022 11:24-0400 Body mass index (BMI) [Ratio] 24.3 kg/m2 Dr. Anay Schuler Work Phone: 0(874)851-014623 [place] [address] 04-30-2022 11:24-0400 Body weight 60.[address] Anay Schuler Work Phone: 2(435)808-342836 [place] [address] 04-30-2022 11:24-0400 Diastolic blood pressure 69 mm[Hg] Dr. Anay Schuler Work Phone: 7(778)559-744623 [place] [address] 04-30-2022 11:24-0400 Heart rate 65 /min Dr. Anay Schuler Work Phone: 6(430)576-050823 [place] [address] 04-30-2022 11:24-0400 SaO2% (BldA) [Mass fraction] 96 % Dr. Anay Schuler Work Phone: 8(529)818-381123 [place] [address] 04-30-2022 11:24-0400 Systolic blood pressure 121 mm[Hg] Dr. Anay Schuler Work Phone: 7(197)691-622623 [place] [address] 04-24-2022 16:41-0400 Diastolic blood pressure 57 mm[Hg] Dr. Anay Schuler Work Phone: 1(279)066-004123 [place] [address] 04-24-2022 16:41-0400 Heart rate 78 /min Dr. Anay Schuler Work Phone: 5(286)874-808023 [place] [address] 04-24-2022 16:41-0400 Respiratory rate 16 /min Dr. Anay Schuler Work Phone: 2(657)709-164723 [place] [address] 04-24-2022 16:41-0400 SaO2% (BldA) [Mass fraction] 97 % Dr. Anay Schuler Work Phone: 3(482)639-518123 [place] [address] 04-24-2022 16:41-0400 Systolic blood pressure 152 mm[Hg] Dr. Anay Schuler Work Phone: 0(396)186-457323 [place] [address] 04-24-2022 14:36-0400 Body height 157.[address] Anay Schuler Work Phone: 3(640)363-118123 [place] [address] Work Phone: 04-24-2022 14:36-0400 Body mass index (BMI) [Ratio] 23.9 kg/m2 Dr. Anay Schuler Work Phone: 8(818)898-557923 [place] [address] 04-24-2022 14:36-0400 Body temperature 98.2 [degF] Dr. Anay Schuler Work Phone: 3(366)856-518423 [place] [address] 04-24-2022 14:36-0400 Body weight 59.[address] Anay Schuler Work Phone: [facility] 04-21-2022 15:21-0400 Diastolic blood pressure 76 mm[Hg] Anay Schuler MD Work Phone: [facility] 04-21-2022 15:21-0400 Systolic blood pressure 130 mm[Hg] Anay Schuler MD Work Phone: [facility] 04-21-2022 14:33-0400 Body height 157.5 cm Anay Schuler MD Work Phone: [facility] 04-21-2022 14:33-0400 Body temperature 98.6 [degF] Anay Schuler MD Work Phone: [facility] 04-21-2022 14:33-0400 Body weight 59.42 kg Anay Schuler MD Work Phone: [facility] 04-21-2022 14:33-0400 Heart rate 89 /min Anay Schuler MD Work Phone: [facility] 04-21-2022 14:33-0400 Respiratory rate 12 /min Anay Schuler MD Work Phone: [facility] 04-21-2022 14:33-0400 SaO2% (BldA) [Mass fraction] 98 % Anay Schuler MD Work Phone: [facility] 04-18-2022 12:57-0400 Body mass index (BMI) [Ratio] 23.9 kg/m2 Dr. Anay Schuler Work Phone: [facility] 04-18-2022 12:57-0400 Body weight 59.[address] Anay Schuler Work Phone: [facility] 04-18-2022 12:57-0400 Diastolic blood pressure 70 mm[Hg] Dr. Anay Schuler Work Phone: [facility] 04-18-2022 12:57-0400 Heart rate 75 /min Dr. Anay Schuler Work Phone: [facility] 04-18-2022 12:57-0400 Respiratory rate 18 /min Dr. Anay Schuler Work Phone: [facility] 04-18-2022 12:57-0400 SaO2% (BldA) [Mass fraction] 96 % Dr. Anay Schuler Work Phone: [facility] 04-18-2022 12:57-0400 Systolic blood pressure 137 mm[Hg] Dr. Anay Schuler Work Phone: [facility] 04-09-2022 17:05-0400 Body height 157.5 cm Anay Schuler MD Work Phone: [facility] 04-09-2022 17:05-0400 Body temperature 97.39 [degF] Anay Schuler MD Work Phone: [facility] 04-09-2022 17:05-0400 Body weight 61.24 kg Anay Schuler MD Work Phone: [facility] 04-09-2022 17:05-0400 Diastolic blood pressure 52 mm[Hg] Anay Schuler MD Work Phone: [facility] 04-09-2022 17:05-0400 Heart rate 90 /min Anay Schuler MD Work Phone: [facility] 04-09-2022 17:05-0400 Respiratory rate 12 /min Anay Schuler MD Work Phone: [facility] 04-09-2022 17:05-0400 SaO2% (BldA) [Mass fraction] 98 % Anay Schuler MD Work Phone: [facility] 04-09-2022 17:05-0400 Systolic blood pressure 90 mm[Hg] Anay Schuler MD Work Phone: [facility] 04-04-2022 11:02-0400 Body height 157.[address] Anay Schuler Work Phone: [facility] Work Phone: 04-04-2022 11:02-0400 Body mass index (BMI) [Ratio] 24.3 kg/m2 Dr. Anay Schuler Work Phone: 5(522)463-571136 [place] [address] 04-04-2022 11:02-0400 Body temperature 96.9 [degF] Dr. Anay Schuler Work Phone: 1(555)310-811223 [place] [address] 04-04-2022 11:02-0400 Body weight 60.[address] Anay Schuler Work Phone: 8(503)756-852023 [place] [address] 04-04-2022 11:02-0400 Diastolic blood pressure 91 mm[Hg] Dr. Anay Schuler Work Phone: 7(358)953-843023 [place] [address] 04-04-2022 11:02-0400 Heart rate 67 /min Dr. Anay Schuler Work Phone: 5(678)298-091523 [place] [address] 04-04-2022 11:02-0400 Respiratory rate 16 /min Dr. Anay Schuler Work Phone: 6(953)135-988923 [place] [address] 04-04-2022 11:02-0400 SaO2% (BldA) [Mass fraction] 99 % Dr. Anay Schuler Work Phone: 2(065)586-305823 [place] [address] 04-04-2022 11:02-0400 Systolic blood pressure 130 mm[Hg] Dr. Anay Schuler Work Phone: 8(693)323-866323 [place] [address] 04-02-2022 15:23-0400 Body weight 59.88 kg Silvio Older ACCOUNTING SUPERVISOR.INJECTOR ASSEMBLER Work Phone: [facility] 04-02-2022 15:23-0400 Diastolic blood pressure 78 mm[Hg] Silvio Older ACCOUNTING SUPERVISOR.INJECTOR ASSEMBLER Work Phone: 5(475)273-633032 [place] [address] 04-02-2022 15:23-0400 Heart rate 90 /min Silvio Older ACCOUNTING SUPERVISOR.INJECTOR ASSEMBLER Work Phone: [facility] 04-02-2022 15:23-0400 Respiratory rate 16 /min Silvio Older ACCOUNTING SUPERVISOR.INJECTOR ASSEMBLER Work Phone: [facility] 04-02-2022 15:23-0400 SaO2% (BldA) [Mass fraction] 99 % Silvio Older ACCOUNTING SUPERVISOR.INJECTOR ASSEMBLER Work Phone: [facility] 04-02-2022 15:23-0400 Systolic blood pressure 122 mm[Hg] Silvio Older ACCOUNTING SUPERVISOR.INJECTOR ASSEMBLER Work Phone: [facility] 03-25-2022 14:50-0400 Body height 157.[address] Anay Schuler Work Phone: [facility] Work Phone: 03-25-2022 14:50-0400 Body mass index (BMI) [Ratio] 25.2 kg/m2 Dr. Anay Schuler Work Phone: [facility] 03-25-2022 14:50-0400 Body weight 62.[address] Anay Schuler Work Phone: [facility] 03-25-2022 14:50-0400 Diastolic blood pressure 62 mm[Hg] Dr. Anay Schuler Work Phone: [facility] 03-25-2022 14:50-0400 Heart rate 104 /min Dr. Anay Schuler Work Phone: [facility] 03-25-2022 14:50-0400 Respiratory rate 16 /min Dr. Anay Schuler Work Phone: [facility] 03-25-2022 14:50-0400 Systolic blood pressure 122 mm[Hg] Dr. Anay Schuler Work Phone: [facility] 03-20-2022 14:44-0400 Body weight 60.33 kg Silvio Older ACCOUNTING SUPERVISOR.INJECTOR ASSEMBLER Work Phone: [facility] 03-20-2022 14:44-0400 Diastolic blood pressure 70 mm[Hg] Silvio Older ACCOUNTING SUPERVISOR.INJECTOR ASSEMBLER Work Phone: [facility] 03-20-2022 14:44-0400 Heart rate 68 /min Silvio Older ACCOUNTING SUPERVISOR.INJECTOR ASSEMBLER Work Phone: [facility] 03-20-2022 14:44-0400 Respiratory rate 16 /min Silvio Older ACCOUNTING SUPERVISOR.INJECTOR ASSEMBLER Work Phone: [facility] 03-20-2022 14:44-0400 Systolic blood pressure 112 mm[Hg] Silvio Drake ACCOUNTING SUPERVISOR.INJECTOR ASSEMBLER Work Phone: [facility] 03-10-2022 15:52-0400 Body weight 60.33 kg Anay Schuler MD Work Phone: [facility] 03-10-2022 15:52-0400 Diastolic blood pressure 58 mm[Hg] Anay Schuler MD Work Phone: [facility] 03-10-2022 15:52-0400 Heart rate 74 /min Anay Schuler MD Work Phone: [facility] 03-10-2022 15:52-0400 Respiratory rate 14 /min Anay Schuler MD Work Phone: [facility] 03-10-2022 15:52-0400 SaO2% (BldA) [Mass fraction] 99 % Anay Schuler MD Work Phone: [facility] 03-10-2022 15:52-0400 Systolic blood pressure 92 mm[Hg] Anay Schuler MD Work Phone: [facility] 02-23-2022 09:00-0400 Body temperature 97.3 [degF] Dr. Anay Schuler Work Phone: [facility] Work Phone: 02-23-2022 09:00-0400 Diastolic blood pressure 62 mm[Hg] Dr. Anay Schuler Work Phone: [facility] Work Phone: 02-23-2022 09:00-0400 Heart rate 79 /min Dr. Anay Schuler Work Phone: [facility] Work Phone: 02-23-2022 09:00-0400 Respiratory rate 18 /min Dr. Anay Schuler Work Phone: [facility] Work Phone: 02-23-2022 09:00-0400 SaO2% (BldA) [Mass fraction] 98 % Dr. Anay Schuler Work Phone: [facility] Work Phone: 02-23-2022 09:00-0400 Systolic blood pressure 97 mm[Hg] Dr. Anay Schuler Work Phone: [facility] Work Phone: 02-22-2022 00:39-0400 Body height 157.[address] Anay Schuler Work Phone: [facility] Work Phone: 02-22-2022 00:39-0400 Body mass index (BMI) [Ratio] 22.8 kg/m2 Dr. Anay Schuler Work Phone: [facility] Work Phone: 02-22-2022 00:39-0400 Body weight 56.[address] Anay Schuler Work Phone: [facility] Work Phone: 02-21-2022 19:00-0400 Body temperature 97.6 [degF] Dr. Anay Schuler Work Phone: [facility] Work Phone: 02-21-2022 19:00-0400 Diastolic blood pressure 74 mm[Hg] Dr. Anay Schuler Work Phone: [facility] Work Phone: 02-21-2022 19:00-0400 Heart rate 71 /min Dr. Anay Schuler Work Phone: [facility] Work Phone: 02-21-2022 19:00-0400 Respiratory rate 18 /min Dr. Anay Schuler Work Phone: [facility] Work Phone: 02-21-2022 19:00-0400 Systolic blood pressure 126 mm[Hg] Dr. Anay Schuler Work Phone: [facility] Work Phone: 02-21-2022 18:55-0400 Body height 157.[address] Anay Schuler Work Phone: [facility] Work Phone: 02-21-2022 18:55-0400 Body mass index (BMI) [Ratio] 23.2 kg/m2 Dr. Anay Schuler Work Phone: [facility] Work Phone: 02-21-2022 18:55-0400 Body weight 57.[address] Anay Schuler Work Phone: [facility] Work Phone: 02-21-2022 14:40-0400 Body height 157.5 cm Anay Schuler MD Work Phone: [facility] 02-21-2022 14:40-0400 Body temperature 96.4 [degF] Anay Schuler MD Work Phone: [facility] 02-21-2022 14:40-0400 Body weight 57.15 kg Anay Schuler MD Work Phone: [facility] 02-21-2022 14:40-0400 Diastolic blood pressure 50 mm[Hg] Anay Schuler MD Work Phone: [facility] 02-21-2022 14:40-0400 Heart rate 60 /min Anay Schuler MD Work Phone: [facility] 02-21-2022 14:40-0400 Respiratory rate 12 /min Anay Schuler MD Work Phone: [facility] 02-21-2022 14:40-0400 SaO2% (BldA) [Mass fraction] 99 % Dr. Anay Schuler Work Phone: [facility] Work Phone: 02-21-2022 14:40-0400 Systolic blood pressure 92 mm[Hg] Anay Schuler MD Work Phone: [facility] 02-13-2022 11:30-0400 Body height 157.[address] Anay Schuler Work Phone: [facility] Work Phone: 02-13-2022 11:30-0400 Body mass index (BMI) [Ratio] 24.5 kg/m2 Dr. Anay Schuler Work Phone: [facility] Work Phone: 02-13-2022 11:30-0400 Body weight 60.[address] Anay Schuler Work Phone: [facility] Work Phone: 02-13-2022 11:30-0400 Diastolic blood pressure 72 mm[Hg] Dr. Aany Schuler Work Phone: [facility] Work Phone: 02-13-2022 11:30-0400 Heart rate 52 /min Dr. Anay Schuler Work Phone: [facility] Work Phone: 02-13-2022 11:30-0400 SaO2% (BldA) [Mass fraction] 98 % Dr. Anay Schuler Work Phone: [facility] Work Phone: 02-13-2022 11:30-0400 Systolic blood pressure 146 mm[Hg] Dr. Anay Schuler Work Phone: [facility] Work Phone: 12-10-2021 13:00-0400 Body height 159 cm Anay Schuler MD Work Phone: [facility] 12-10-2021 13:00-0400 Body weight 60.78 kg Anay Schuler MD Work Phone: [facility] 12-10-2021 13:00-0400 Diastolic blood pressure 62 mm[Hg] Anay Schuler MD Work Phone: [facility] 12-10-2021 13:00-0400 Heart rate 56 /min Anay Schuler MD Work Phone: [facility] 12-10-2021 13:00-0400 Respiratory rate 16 /min Anay Schuler MD Work Phone: [facility] 12-10-2021 13:00-0400 Systolic blood pressure 128 mm[Hg] Anay Schuler MD Work Phone: [facility] Encounters Encounter Date Encounter Type Care Provider Facility Start: 03-01-2025 End: 03-01-[address] Anay Schuler MD Work Phone: -[facility] Start: 03-01-2025 End: 03-01-[address] Dacia Sewell DO -[facility] Start: 03-01-2025 End: 03-01-2025 ambulatory Dacia Sewell Facility:[facility] Start: 02-22-2025 End: 02-22-[address] Jessica Adler MD -[facility] Work Phone: Start: 02-22-2025 End: 02-22-[address] Anay Schuler MD Work Phone: -[facility] Start: 02-02-2025 Non-patient / Non-visit Dr. Sonya FERNANDEZ -[facility] Start: 02-02-2025 End: 02-02-[address] Anay Schuler MD Work Phone: -Cardiovascular Services Start: 02-02-2025 End: 02-02-[address] Jake Kingston MD -[facility] Work Phone: Start: 02-02-2025 End: 02-02-2025 Dr. Fredis Marie MD -[facility] Start: 02-02-2025 End: 02-02-2025 ambulatory Jake Kingston Facility:[facility] Start: 01-09-2025 End: 01-09-[address] Jake Kingston MD -[facility] Work Phone: Start: 01-09-2025 End: 01-09-2025 Dr. Jake Kingston MD -[facility] Work Phone: Start: 01-09-2025 End: 01-09-[address] Anay Schuler MD Work Phone: -[facility] Start: 01-03-2025 End: 01-03-2025 Office outpatient visit 25 minutes Anay Schuler MD Work Phone: [facility] [place] Comment on above: Hypothyroidism, unsp ecified type (Primary Dx); Essential hypertension; Iron deficiency; Anemia, unspecified type; Persistent atrial fibrillation (HCC) Start: 01-03-2025 End: 01-03-2025 ambulatory [facility] Facility:[facility] Start: 01-02-2025 End: 01-02-2025 Refill Anay Schuler MD Work Phone: [facility] [place] Comment on above: Refill Request Start: 12-27-2024 Non-patient / Non-visit Dr. Addy Adler MD -[facility] Work Phone: Start: 12-27-2024 Dr. Jessica najera MD -[facility] Work Phone: Start: 12-21-2024 End: 12-21-2024 Office outpatient visit 25 minutes Silvio Drake APRN.CNP Work Phone: [facility] [place] Comment on above: Acute cough (Primary Dx); Dyspnea, unspecified type; Abnormal breath sounds; Essential hypertension; Hypertensive kidney disease with stage 3b chronic kidney disease (HCC); Nausea Start: 12-21-2024 End: 12-21-2024 ambulatory [facility] Facility:[facility] Start: 12-16-2024 End: 12-17-2024 Follow-up encounter Silvio Drake APRN.CNP Work Phone: [facility] [place] Start: 12-15-2024 End: 12-16-2024 Follow-up encounter Anay Schuler MD Work Phone: [facility] [place] Comment on above: Results Start: 12-12-2024 End: 12-12-2024 Subsequent hospital visit by physician Xr [facility] Work Phone: Radiology Comment on above: Acute cough [R05.1] Start: 12-12-2024 End: 12-12-2024 Office outpatient visit 25 minutes Silvio Drake APRN.CNP Work Phone: [facility] [place] Comment on above: Acute cough (Primary Dx); Dyspnea, unspecified type; Abnormal breath sounds; Permanent atrial fibrillation (HCC); Essential hypertension; Nausea; Medication management Start: 12-12-2024 End: 12-12-2024 ambulatory [facility] Facility:[facility] Start: 12-02-2024 End: 12-02-2024 Patient Outreach Dacia Pitt RN Delivery Room Supervisor Management Comment on above: Weekly phone contact (Recurring) for Transitional Care Management Start: 2024 End: 12-01-2024 Refill Anay Schuler MD Work Phone: [facility] [place] Comment on above: Refill Request Orders Start: 11-28-2024 End: 11-28-2024 Office outpatient visit 25 minutes Anay Schuler MD Work Phone: [facility] [place] Comment on above: Anemia, unspecified type (Primary Dx); Hypertensive kidney disease with stage 3b chronic kidney disease (HCC); Vitamin B12 deficiency Start: 11-28-2024 End: 11-28-2024 [facility] Facility:[facility] Start: 11-25-2024 End: 11-25-2024 Patient encounter procedure [facility] Work Phone: Start: 11-25-2024 End: 11-25-2024 [facility] Work Phone: Start: 11-25-2024 End: 11-25-[address] Anay Schuler MD Work Phone: [facility] Work Phone: Comment on above: Weekly phone contact (Recurring) for Transitional Care Management Start: 11-23-2024 End: 11-23-2024 ambulatory Laly Long RN Work Phone: Delivery Room Supervisor Management Comment on above: ACM KRYSTLE RN ( Chart review review per request of payor ) Start: 11-19-2024 End: 11-19-2024 Dr. Beto Keene DO -Emergency Department Work Phone: Start: 11-19-2024 End: 11-19-2024 Emergency department patient visit Dr. Beto Keene DO -Emergency Department Work Phone: Start: 11-15-2024 End: 11-15-[address] Fredis Marie MD -[facility] Work Phone: Start: 11-15-2024 End: 11-15-2024 Dr. Fredis Marie MD -[facility] Work Phone: Start: 11-15-2024 End: 11-15-[address] 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 Anay Schuler MD Work Phone: [facility] Work Phone: Comment on above: Transition Of Care W eekly phone contact (Recurring) for Transitional Care Management Start: 11-08-2024 End: 11-09-2024 Telephone encounter Anay Schuler MD Work Phone: [facility] [place] Comment on above: PT plan of care Start: 11-08-2024 End: 11-08-[address] Terry Basilio MD -[facility] Work Phone: Start: 11-08-2024 End: 11-08-2024 Dr. Terry Basilio MD -[facility] Work Phone: Start: 11-08-2024 End: 11-08-[address] Anay Schuler MD Work Phone: [facility] Work Phone: Start: 11-08-2024 End: 11-08-[address] Anay Schuler MD Work Phone: [facility] Work Phone: Start: 11-08-2024 End: 11-08-[address] [facility] Work [facility] Start: 11-08-2024 End: 11-08-2024 Dr. Jake Kingston MD -[facility] [place] Work Phone: Start: 11-07-2024 End: 11-08-2024 ambulatory [facility] Start: 11-07-2024 End: 11-07-2024 Patient encounter procedure [facility] Robledo [facility] Comment on above: Population Health Na vigation Outreach ([facility]) Start: 11-07-2024 End: 11-10-2024 Telephone encounter Anay Schuler MD Work Phone: [facility] [place] Comment on above: [facility] P[facility] Start: 11-04-2024 End: 11-04-2024 Patient Outreach Dacia Pitt RN Delivery Room Supervisor Management Comment on above: Initial phone contac t for Transitional Care Management Start: 11-03-2024 End: 11-04-2024 Telephone encounter Anay Schuler MD Work Phone: [facility] [place] Comment on above: Orders Start: 11-03-2024 Non-patient / Non-visit Dr. Shyann Trevizo MD [facility] Work Phone: Start: 11-03-2024 Dr. Rory Dumont and MD [facility] Work Phone: Start: 11-03-2024 Non-patient / Non-visit Dr. Estefani Kingston MD [facility] Start: 11-03-2024 Dr. Jake ye MD [facility] Start: 11-02-2024 Non-patient / Non-visit Dr. Shyann Trevizo MD [facility] Work Phone: Start: 11-02-2024 Dr. Rory Dumont and MD [facility] Work Phone: Start: 11-02-2024 Non-patient / Non-visit Dr. Estefani Kingston MD [facility] Start: 11-02-2024 Dr. Jake ye MD [facility] Start: 11-01-2024 Non-patient / Non-visit Dr. Shyann Trevizo MD [facility] Work Phone: Start: 11-01-2024 Dr. Rory Dumont and [facility] Work Phone: Start: 10-31-2024 ambulatory Anay Schuler [facility] Start: 10-31-2024 Non-patient / [facility] Start: 10-31-2024 Dr. Talia David MD [facility] Start: 10-31-2024 Non-patient / Non-visit Dr. Estefani Kingston MD [facility] Start: 10-31-2024 Dr. Jake ye MD [facility] Start: 10-31-2024 Non-patient / Non-visit Dr. Shyann Trevizo MD [facility] Work Phone: Start: 10-31-2024 Dr. Rory Dumont and -[facility] Work Phone: Start: 10-30-2024 ambulatory Anay Schuler [facility] Start: 10-30-2024 End: 11-03-2024 Evaluation and management of inpatient Dr. Rory Trevizo MD -Progressive Care Unit Work Phone: Start: 10-30-2024 End: 11-03-2024 Dr. Rory Trevizo MD -Progressive Care Unit Work Phone: Start: 10-28-2024 End: 10-28-2024 Patient Outreach Dacia Pitt RN Delivery Room Supervisor Management Comment on above: Weekly phone contact (Recurring) for Transitional Care Management Start: 10-27-2024 Non-patient / Non-visit Dr. Estefani Kingston MD -[facility] Work Phone: Start: 10-27-2024 End: 10-27-[address] Anay Schluer MD Work Phone: [facility] Work Phone: Start: 10-27-2024 End: 10-27-2024 Patient encounter procedure Faustina MCCANN -Pulmonary Services/Neurology Work Phone: Start: 10-27-2024 End: 10-27-2024 Faustina MCCANN -Pulmonary Services/Neurology Work Phone: Start: 10-27-2024 End: 10-27-2024 ambulatory Faustina MCCANN Facility:[facility] Start: 10-24-2024 End: 10-24-2024 Patient encounter procedure Ning Spencer NP-C -[facility] Work Phone: Start: 10-24-2024 End: 10-24-2024 Ning Spencer OUTSIDE PLANT CABLE ENGINEER-C -[facility] Work Phone: Start: 10-24-2024 End: 10-24-2024 ambulatory Ning Spencer NP Facility:[facility] Start: 10-24-2024 End: 10-24-2024 [facility] Facility:[facility] Start: 10-17-2024 End: 10-17-2024 Patient encounter procedure Silvio Drake APRN.INJECTOR ASSEMBLER Work Phone: [facility] [place] Comment on above: Nausea (Primary Dx); Other fatigue; Ecchymosis of left eye, initial encounter; Paroxysmal atrial fibrillation (HCC) Start: 10-17-2024 End: 10-17-2024 [facility] Facility:[facility] Start: 10-14-2024 End: 10-14-2024 Patient Outreach Dacia Pitt RN Delivery Room Supervisor Management Comment on above: Initial phone contac t for Transitional Care Management Start: 10-13-2024 Non-patient / Non-visit Dr. Mary Cain MD -[facility] Work Phone: Start: 10-13-2024 Dr. Nirav Cain MD -[facility] Work Phone: Start: 10-13-2024 Non-patient / Non-visit Dr. Estefani Kingston MD [facility] Start: 10-13-2024 Dr. Jake ye MD [facility] Start: 10-12-2024 Non-patient / Non-visit Dr. Mary Cain MD -[facility] Work Phone: Start: 10-12-2024 Dr. Nirav Cain MD -[facility] Work Phone: Start: 10-12-2024 [facility] Start: 10-12-2024 Non-patient / Non-visit Dr. Sonya FERNANDEZ [facility] Start: 10-12-2024 Dr. Fredis Marie MD [facility] Start: 10-12-2024 Non-patient / [facility] Start: 10-12-2024 [facility] Start: 10-11-2024 Non-patient / Non-[facility] Start: 10-11-2024 Dr. Jake ye MD [facility] Start: 10-11-2024 End: 10-13-2024 Evaluation and management of inpatient Dr. Inocencia Long MD -Progressive Care Unit Work Phone: Start: 10-11-2024 ambulatory Anay Schuler [facility] Start: 10-11-2024 Non-patient / Non-visit Dr. Hilary Long MD -[facility] Work Phone: Start: 10-11-2024 End: 10-13-2024 Dr. Nirav Cain MD -Progressive Care Unit Work Phone: Start: 10-08-2024 End: 10-10-2024 Follow-up encounter Michael Sullivan APRN.CNP Work Phone: [facility] Comment on above: Results Start: 10-08-2024 End: 10-08-2024 ambulatory Anay Schuler MD Work Phone: [facility] [place] Comment on above: Patient Question (? Nauseous from RX?) Start: 10-08-2024 End: 10-08-2024 Patient encounter procedure Michael Sullivan APRN.CNP Work Phone: [facility] Comment on above: Dysuria (Primary Dx) Start: 10-07-2024 End: 10-07-2024 Telephone encounter Anay Schuler MD Work Phone: [facility] Comment on above: UTI Start: 09-28-2024 End: 09-28-2024 ambulatory Anay Schuler MD Work Phone: [facility] Start: 09-28-2024 End: 11-28-2024 Follow-up encounter Silvio Drake APRN.INJECTOR ASSEMBLER Work Phone: [facility] [place] Start: 09-28-2024 End: 09-28-2024 Patient encounter procedure Anay Schuler MD Work Phone: [facility] Comment on above: Population Health Na vigation Outreach [facility] Start: 09-27-2024 End: 09-27-2024 Telephone encounter Anay Schuler MD Work Phone: [facility] [place] Comment on above: Patient Update Start: 09-26-2024 End: 09-26-2024 ambulatory [facility] Facility:[facility] Start: 09-26-2024 End: 09-26-2024 Patient encounter procedure Silvio Vidal CRAFT Work Phone: [facility] [place] Comment on above: Frequency of urinati on (Primary Dx); Dysuria; Leukocytes in urine Start: 09-15-2024 End: 11-15-2024 Follow-up encounter Anay Schuler MD Work Phone: Geriatrics Start: 09-12-2024 End: 09-12-2024 [facility] Start: 09-09-2024 End: 09-09-2024 [facility] Start: 09-09-2024 End: 09-09-2024 Office outpatient visit 25 minutes Anay Schuler MD Work Phone: [facility] [place] Comment on above: Accelerated hyperten clay (Primary Dx); Uncontrolled hypertension; Paroxysmal atrial fibrillation (HCC) Start: 09-06-2024 ambulatory [facility] Facility:[facility] Start: 09-01-2024 End: 11-01-2024 Follow-up encounter Anay Schuler MD Work Phone: Geriatrics Start: 08-26-2024 End: 08-27-2024 Dr. iVncent Chan MD -Emergency Department Work Phone: Start: 08-26-2024 End: 08-27-2024 Emergency department patient visit Dr. Vincent Chan MD -Emergency Department Work Phone: Start: 08-26-2024 End: 08-26-2024 ambulatory [facility] Facility:[facility] Start: 08-02-2024 End: 08-02-2024 Office outpatient visit 25 minutes Anay Schuler MD Work Phone: [facility] [place] Comment on above: Exercise-induced leg fatigue (Primary Dx); Stage 3a chronic kidney disease (HCC); Gastroesophageal reflux disease, unspecified whether esophagitis present; Mixed hyperlipidemia; Anemia, unspecified type; Hypothyroidism, unspecified type Start: 08-02-2024 End: 08-02-2024 [facility] Start: 07-25-2024 End: 07-25-2024 [facility] Start: 07-18-2024 End: 07-19-2024 Refill Anay Schuler MD Work Phone: [facility] [place] Comment on above: Refill Request Start: 06-14-2024 End: 06-14-[address] Terry Basilio MD -[facility] Work Phone: Start: 06-14-2024 End: 06-14-2024 [facility] Start: 06-10-2024 End: 06-10-2024 [facility] Start: 06-10-2024 End: 06-10-2024 Office outpatient visit 25 minutes Jeremy Yu MD [facility] Comment on above: Urinary frequency (P rimary Dx) Start: 06-10-2024 End: 06-10-2024 Telephone encounter Anay Schuler MD Work Phone: [facility] [place] Comment on above: requesting lab order s for urine Start: 06-10-2024 End: 06-10-2024 [facility] Start: 05-30-2024 End: 05-30-2024 Office outpatient visit 25 minutes Anay Schuler MD Work Phone: [facility] [place] Comment on above: Stage 3b chronic kid luz disease (HCC) (Primary Dx); Hearing loss, unspecified hearing loss type, unspecified laterality; Uncontrolled hypertension; Anemia, unspecified type; Vitamin B12 deficiency; Vitamin D deficiency; Hypothyroidism, unspecified type Start: 05-30-2024 End: 05-30-2024 [facility] Start: 05-20-2024 End: 05-20-2024 Refill Anay Schuler MD Work Phone: [facility] [place] Comment on above: Refill Request; Erro neous encounter-disregard (Pt called wrong provider for refill) Start: 05-18-2024 End: 05-18-2024 ambulatory [facility] Facility:[facility] Start: 05-04-2024 End: 05-04-2024 ambulatory [facility] Facility:[facility] Start: 04-26-2024 End: 04-26-2024 ambulatory [facility] Facility:[facility] Start: 04-13-2024 End: 04-14-2024 Refill Anay Schuler MD Work Phone: [facility] [place] Comment on above: Refill Request Start: 03-23-2024 End: 03-23-2024 Refill Anay Schuler MD Work Phone: [facility] Comment on above: Refill Request Start: 01-13-2024 Telephone encounter Anay galeano MD Work Phone: [facility] [place] Comment on above: Results Start: 01-11-2024 End: 01-11-2024 [facility] Start: 01-11-2024 End: 01-11-2024 [facility] Start: 01-11-2024 End: 01-11-2024 Office outpatient visit 25 minutes Anay Schuler MD Work Phone: [facility] [place] Comment on above: Mixed incontinence ( Primary Dx); Anemia, unspecified type; Essential hypertension; Need for vaccination; Pulmonary hypertension (HCC); Permanent atrial fibrillation (HCC); Bilateral hearing loss, unspecified hearing loss type Start: 10-28-2023 End: 10-28-[address] Anay Schuler Work Phone: [facility] Work Phone: Start: 10-28-2023 End: 10-28-[address] Anay Schuler Work Phone: [facility] Work Phone: Start: 10-27-2023 End: 10-27-[address] Anay Schuler Work Phone: [facility] Work Phone: Start: 10-06-2023 Telephone encounter Anay galeano MD Work Phone: [facility] [place] Comment on above: Results Start: 09-28-2023 End: 09-28-2023 Patient encounter procedure Megha Mahoney PA-C Work Phone: [facility] [place] Comment on above: Perineal rash in fem laina (Primary Dx) Start: 08-21-2023 Telephone encounter Silvio Drake APRN.INJECTOR ASSEMBLER Work Phone: [facility] [place] Comment on above: Results Start: 08-20-2023 End: 08-20-[address] Anay Schuler Work Phone: [facility] Work Phone: Start: 08-20-2023 End: 08-20-[address] Anay Schluer Work Phone: [facility] Work Phone: Start: 08-18-2023 End: 08-18-2023 Patient encounter procedure Megha MCCANN-C Work Phone: [facility] [place] Comment on above: Hypertensive kidney disease with stage 3b chronic kidney disease (HCC) (Primary Dx); Essential hypertension; Anemia, unspecified type Start: 08-07-2023 Telephone encounter Jolie velasco ACCOUNTING SUPERVISOR.INSTRUMENTATION TECHNOLOGIST Work Phone: [facility] [place] Comment on above: Results Start: 07-16-2023 Non-patient / Non-visit Dr. Julia Schuler Work Phone: [facility] Work Phone: Start: 07-15-2023 Non-patient / Non-visit Dr. Julia Schuler Work Phone: [facility] Work Phone: Start: 07-14-2023 Non-patient / Non-visit Dr. Julia Schuler Work Phone: [facility] Work Phone: Start: 07-13-2023 Non-patient / Non-visit Dr. Julia Schuler Work Phone: [facility] Work Phone: Start: 07-13-2023 End: 07-16-2023 Evaluation and management of inpatient Dr. Anay Schuler Work Phone: [facility] Work Phone: Start: 06-05-2023 End: 06-05-[address] Anay Schuler Work Phone: [facility] Work Phone: Start: 06-01-2023 End: 06-01-2023 Office outpatient visit 25 minutes Jolie Mckeonmaritza HERNANDEZ.INSTRUMENTATION TECHNOLOGIST Work Phone: [facility] [place] Comment on above: Hypertensive kidney disease with stage 3b chronic kidney disease (HCC) Start: 05-07-2023 Refill Anay Cardozo Work Phone: [facility] [place] Comment on above: Refill Request Start: 05-01-2023 End: 05-01-2023 Patient encounter procedure Toshia Drake APRN.INJECTOR ASSEMBLER Work Phone: [facility] [place] Comment on above: Essential hypertensi on (Primary Dx) Start: 04-15-2023 End: 04-15-2023 Patient encounter procedure Megha Mahoney PA-C Work Phone: [facility] [place] Comment on above: Hypertensive kidney disease with stage 3b chronic kidney disease (HCC) (Primary Dx) Start: 04-10-2023 Telephone encounter Silvio Drake APRN.INJECTOR ASSEMBLER Work Phone: [facility] [place] Comment on above: Results Start: 04-09-2023 End: 04-09-2023 Subsequent hospital visit by physician Xr [facility] Work Phone: Radiology Comment on above: Osteoporosis without current pathological fracture, unspecified osteoporosis type [M81.0] Start: 04-09-2023 End: 04-09-2023 Patient encounter procedure Silvio Drake APRN.INJECTOR ASSEMBLER Work Phone: [facility] [place] Comment on above: Hypertensive kidney disease with stage 3b chronic kidney disease (HCC) (Primary Dx); Mixed hyperlipidemia; Osteoporosis without current pathological fracture, unspecified osteoporosis type; Mid back pain; Hypothyroidism, unspecified type; Elevated hemoglobin A1c; Need for influenza vaccination Start: 04-07-2023 End: 04-07-[address] Anay Schuler Work Phone: [facility]-Laboratory, Phy Office 3rd Flr Start: 03-23-2023 Refill Anay Cardozo Work Phone: [facility] [place] Comment on above: Refill Request Start: 02-19-2023 Refill Anay Cardozo Work Phone: [facility] [place] Comment on above: Refill Request Start: 01-27-2023 End: 01-27-2023 ambulatory ANAY SCHULER Facility:[facility] Start: 01-27-2023 End: 01-27-2023 Patient encounter procedure Maura Giles MD Work Phone: [facility] Card[facility] Comment on above: Permanent atrial fib rillation (HCC) (Primary Dx); At risk for stroke; Anticoagulant long-term use; At risk for bleeding associated with anticoagulants; History of GI bleed Start: 01-27-2023 Chart abstracting Brittani lerma MA [facility] Start: 01-27-2023 Telephone encounter Silvio Drake APRN.INJECTOR ASSEMBLER Work Phone: [facility] [place] Comment on above: Results Start: 01-12-2023 End: 01-12-2023 Subsequent hospital visit by physician Bone Density [facility] Work Phone: Radiology Comment on above: 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 Anay Schuler Work Phone: [facility] Work Phone: Start: 11-19-2022 End: 11-19-[address] Anay Schuler Work Phone: [facility] Start: 11-10-2022 End: 11-10-[address] Anay Schuler Work Phone: [facility]-Laboratory Start: 10-31-2022 Non-patient / Non-visit Dr. Julia Schuler Work Phone: [facility] Start: 10-31-2022 End: 10-31-2022 Admission to same day surgery center Dr. Anay Schuler Work Phone: [facility]-Endoscopy Start: 10-10-2022 Telephone encounter Anay galeano MD Work Phone: [facility] [place] Comment on above: Results Start: 10-08-2022 Telephone encounter Anay galeano MD Work Phone: [facility] [place] Comment on above: Medication Request Start: 09-26-2022 End: 09-26-[address] Anay Schuler Work Phone: [facility] Start: 09-15-2022 End: 09-15-[address] Anay Schuler Work Phone: [facility] Work Phone: Start: 09-15-2022 End: 09-15-[address] Anay Schuler Work Phone: [facility], y Office 3rd Flr Start: 09-10-2022 End: 09-10-2022 Patient encounter procedure Anay Schuler MD Work Phone: [facility] [place] Comment on above: Anemia, unspecified type (Primary Dx); Essential hypertension; Permanent atrial fibrillation (HCC); Hypothyroidism, unspecified type; Fatigue, unspecified type Start: 08-13-2022 End: 08-13-[address] Anay Schuler Work Phone: [facility] Start: 08-04-2022 Telephone encounter Anay galeano MD Work Phone: Internal [facility] Comment on above: Patient Update; Orde rs Start: 07-22-2022 End: 07-22-[address] Anay Schuler Work Phone: [facility] Office 3rd Flr Start: 07-16-2022 End: 07-16-[address] Anya Schuler Work Phone: [facility] Work Phone: Start: 07-16-2022 End: 07-16-[address] Anay Schuler Work Phone: [facility] Start: 07-09-2022 End: 07-09-[address] Anay Schuler Work Phone: [facility] Work Phone: Start: 07-09-2022 End: 07-09-[address] Anay Schuler Work Phone: [facility] Start: 07-01-2022 Telephone encounter Ruth crain APRN.CNP Work Phone: [facility] Comment on above: Results Start: 06-27-2022 Refill Anay Cardozo Work Phone: [facility] [place] Comment on above: Med Change Request Start: 06-06-2022 End: 06-06-[address] Anay Schuler Work Phone: [facility] Start: 06-04-2022 End: 06-04-2022 Emergency department patient visit Dr. Anay Schuler Work Phone: [facility]-Emergency Department Start: 05-31-2022 Telephone encounter Anay galeano MD Work Phone: [facility] [place] Comment on above: Patient Question; La b Orders Start: 05-21-2022 End: 05-21-[address] Anay Schuler Work Phone: [facility] Start: 05-13-2022 End: 05-13-[address] Anay Schuler Work Phone: [facility] Work Phone: Start: 05-13-2022 End: 05-13-[address] Anay Schuler Work Phone: [facility]-Laboratory, Phy Office 3rd Flr Start: 05-07-2022 End: 05-07-2022 Patient encounter procedure Anay Schuler MD Work Phone: [facility] [place] Comment on above: Pulmonary hypertensi on (HCC) (Primary Dx); Pedal edema; Permanent atrial fibrillation (HCC); Mixed hyperlipidemia; Hypertensive kidney disease with stage 3b chronic kidney disease (HCC); Essential hypertension; Stage 3a chronic kidney disease (HCC) Start: 05-05-2022 Non-patient / Non-visit Dr. Julia Schuler Work Phone: [facility] Start: 05-04-2022 Non-patient / Non-visit Dr. Julia Schuler Work Phone: [facility] Start: 05-04-2022 Non-patient / Non-visit Dr. Julia Schuler Work Phone: [facility] Start: 05-03-2022 Non-patient / Non-visit Dr. Julia Schuler Work Phone: [facility] Start: 05-03-2022 Non-patient / Non-visit Dr. Julia Schuler Work Phone: [facility] Start: 05-02-2022 Non-patient / Non-visit Dr. Julia Schuler Work Phone: [facility] Start: 05-02-2022 Non-patient / Non-visit Dr. Julia Schuler Work Phone: [facility] Start: 05-01-2022 Non-patient / Non-visit Dr. Julia Schuler Work Phone: [facility] Start: 05-01-2022 End: 05-05-2022 Evaluation and management of inpatient Dr. Anay Schuler Work Phone: [facility]-Progressive Care Unit Start: 05-01-2022 End: 05-01-[address] Anay Schuler Work Phone: [facility] Work Phone: Start: 05-01-2022 End: 05-01-[address] Anay Schuler Work Phone: [facility]-Laboratory Start: 05-01-2022 End: 05-01-[address] Anay Schuler Work Phone: [facility] Start: 04-30-2022 End: 04-30-[address] Anay Schuler Work Phone: [facility] Start: 04-24-2022 End: 04-24-2022 Emergency department patient visit Dr. Anay Schuler Work Phone: [facility]-Emergency Department Start: 04-21-2022 End: 04-21-2022 Patient encounter procedure Anay Schuler MD Work Phone: [facility] [place] Comment on above: Pleural effusion (Pr imary Dx); Hypothyroidism, unspecified type; Atelectasis; History of recent pneumonia; Need for influenza vaccination; Anemia, unspecified type; Congestive heart failure, unspecified HF chronicity, unspecified heart failure type (HCC); Stage 3b chronic kidney disease (HCC) Start: 04-18-2022 End: 04-18-[address] Anay Schuler Work Phone: [facility] Start: 04-14-2022 Telephone encounter Anay galeano MD Work Phone: [facility] [place] Comment on above: Results Start: 04-10-2022 Telephone encounter Silvio Drake APRN.CNP Work Phone: [facility] [place] Comment on above: Orders Start: 04-10-2022 End: 04-10-2022 Subsequent hospital visit by physician Xr [facility] Work Phone: Radiology Comment on above: Acute cough [R05.1] Start: 04-09-2022 End: 04-09-2022 Patient encounter procedure Anay Schuler MD Work Phone: Internal [facility] Comment on above: Congestive heart [place] lure, unspecified HF chronicity, unspecified heart failure type (HCC) (Primary Dx); Essential hypertension; Mixed hyperlipidemia; Pedal edema; Acute cough; Hypokalemia; Hypothyroidism, unspecified type Start: 04-04-2022 Telephone encounter Anay galeano MD Work Phone: [facility] [place] Comment on above: Patient Question Start: 04-04-2022 End: 04-04-2022 Emergency department patient visit Dr. Anay Schuler Work Phone: [facility]-Emergency Department Start: 04-02-2022 End: 04-02-2022 Subsequent hospital visit by physician Xr [facility] Work Phone: Radiology Comment on above: Acute cough [R05.1] Start: 04-02-2022 End: 04-02-2022 Patient encounter procedure Silvio Drake APRN.INJECTOR ASSEMBLER Work Phone: [facility] [place] Comment on above: Acute cough (Primary Dx); Hypokalemia; Shortness of breath; Nausea; Edema of both lower extremities Start: 04-02-2022 Telephone encounter Silvio Drake APRN.INJECTOR ASSEMBLER Work Phone: [facility] [place] Comment on above: Results Start: 03-31-2022 End: 03-31-[address] Anay Schuler Work Phone: [facility] Work Phone: Start: 03-31-2022 End: 03-31-[address] Anay Schuler Work Phone: [facility]-Laboratory Start: 03-28-2022 Telephone encounter Anay galeano MD Work Phone: Internal [facility] [place] Comment on above: Patient Update Start: 03-25-2022 End: 03-25-[address] Anay Schuler Work Phone: [facility] Work Phone: Start: 03-25-2022 End: 03-25-[address] Anay Schuler Work Phone: [facility] Start: 03-25-2022 End: 03-25-[address] Anay Schuler Work Phone: [facility] Start: 03-21-2022 Telephone encounter Silvio Drake APRN.INJECTOR ASSEMBLER Work Phone: [facility] [place] Comment on above: Results Start: 03-20-2022 End: 03-20-2022 Subsequent hospital visit by physician Abhinav [facility] Work Phone: Radiology Comment on above: Acute cough [R05.1] Start: 03-20-2022 End: 03-20-2022 Patient encounter procedure Silvio Drake APRN.INJECTOR ASSEMBLER Work Phone: [facility] [place] Comment on above: Acute cough (Primary Dx); Nausea; Diarrhea, unspecified type; Fatigue, unspecified type; Anemia, unspecified type Start: 03-14-2022 Refill Toshia Vidal HERNANDEZ .CNP Work Phone: Internal [facility] Comment on above: Refill Request Start: 03-10-2022 End: 03-10-2022 Patient encounter procedure Anay Schuler MD Work Phone: [facility] [place] Comment on above: Essential hypertensi on (Primary Dx); Hypothyroidism, unspecified type; Persistent atrial fibrillation (HCC); Other fatigue Start: 02-23-2022 Non-patient / Non-visit Dr. Julia Schuler Work Phone: [facility] Start: 02-22-2022 Non-patient / Non-visit Dr. Julia Schuler Work Phone: [facility] Start: 02-22-2022 Non-patient / Non-visit Dr. Julia Schuler Work Phone: [facility] Start: 02-22-2022 Non-patient / Non-visit Dr. Julia Schuler Work Phone: [facility] Start: 02-21-2022 End: 02-23-2022 Non-patient / Non-visit Dr. Anay Schuler Work Phone: [facility] Start: 02-21-2022 End: 02-23-2022 Evaluation and management of inpatient Dr. Anay Schuler [facility] Start: 02-21-2022 End: 02-21-2022 Patient encounter procedure Anay Schuler MD Work Phone: [facility] [place] Comment on above: Sweating profusely ( Primary Dx); Essential hypertension; Hypotension, unspecified hypotension type; Chest pain, unspecified type; Diarrhea, unspecified type Start: 02-21-2022 Telephone encounter Anay galeano MD Work Phone: [facility] [place] Comment on above: Low BP Start: 02-13-2022 End: 02-13-[address] Anay Schuler Work Phone: [facility] Work Phone: Start: 02-13-2022 End: 02-13-[address] Anay Schuler Work Phone: [facility] Start: 02-13-2022 End: 02-13-[address] Anay Schuler Work Phone: [facility] Start: 01-24-2022 Telephone encounter [facility] Comment on above: Outpatient [place] [facility] Start: 01-16-2022 Refill Kayla Grace APRN.INJECTOR ASSEMBLER Work Phone: OB/Gynecology Comment on above: Refill Request Start: 01-15-2022 Telephone encounter Toshia Drake APRN.INJECTOR ASSEMBLER Work Phone: [facility] [place] Comment on above: Results; Appointment Start: 01-08-2022 Telephone encounter Anay galeano MD Work Phone: [facility] [place] Comment on above: Patient Question Start: 12-25-2021 Telephone encounter Silvio Drake APRN.INJECTOR ASSEMBLER Work Phone: [facility] [place] Comment on above: Results Start: 12-10-2021 End: 12-10-2021 Patient encounter procedure Anay Schuler MD Work Phone: [facility] [place] Comment on above: Encounter for Medica re annual wellness exam (Primary Dx); Mixed hyperlipidemia; Essential hypertension; Hypothyroidism, unspecified type Start: 09-23-2021 Telephone encounter Anay galeano MD Work Phone: [facility] [place] Comment on above: Patient Update Start: 09-25-2020 End: 09-25-2020 Subsequent hospital visit by physician Abhinav [facility] [place] Work Phone: Radiology Comment on above: Mid back pain [M54.9 ] Procedures Date Procedure Procedure Detail Performing Clinician Start: 03-01-2025 Vitamin D, 25-hydrox y measurement Dr. Anay Schuler MD Work Phone: Comment on above: Vitamin D StatusDefi ciency: <20 ng/mL (50nmol/L)Insufficiency: 20-30 ng/mL (50-75 nmol/L)Sufficiency: 30-100 ng/mL (75-250 nmol/L)Toxicity: >100 ng/mL (>250 nmol/L) Start: 03-01-[address] Anay Schuler MD Work Phone: Start: 03-01-2025 Serum inorganic [...] Nucleated red blood cell count procedure Dr. nAay Schuler MD Work Phone: Start: 11-19-2024 Platelet mean volume determination Dr. Anya Schuler MD Work Phone: Start: 11-19-2024 Plain [...] et rgnt auto w/o microscopy Silvio Drake ACCOUNTING SUPERVISOR.INJECTOR ASSEMBLER Work Phone: Start: 10-13-2024 Blood count smear mc rscp w/mnl difrntl wbc count Dr. Anay Schuler MD Work Phone: Start: 10-13-[address] Anay Schuelr MD Work Phone: Start: 10-13-2024 Mean corpuscular [...] 10-11-2024 Calculation of international normalized ratio Dr. Anay Schuler MD Work Phone: Start: 10-11-2024 Plain chest X-ray Dr. Carolyne Schuler MD Work Phone: Start: 10-08-2024 Urnls dip stick/tabl et rgnt auto w/o microscopy [facility] Start: 09-26-2024 Urnls dip stick/tabl et rgnt auto w/o microscopy Silvio Drake ACCOUNTING SUPERVISOR.INJECTOR ASSEMBLER Work Phone: Start: 08-27-[address] Anay Schuler MD Work Phone: Start: 06-10-2024 Urnls dip stick/tabl et rgnt auto w/o microscopy Merary Deidra ACCOUNTING SUPERVISOR.INJECTOR ASSEMBLER Work Phone: Start: 08-20-[address] [...] Radex spine thoracic 3 views Silvio Drake APRN.INJECTOR ASSEMBLER Work Phone: Start: 04-09-2023 INFLUENZA VACCINE, P RSV FREE, AGE 65+ YR, HIGH DOSE, QUADRIVALENT (FLUZONE HIGH-DOSE) Silvio Drake ACCOUNTING SUPERVISOR.INJECTOR ASSEMBLER Work Phone: Start: 01-27-2023 Ecg routine ecg w/le ast 12 lds w/i&r Maura Giles MD Work Phone: Start: 01-12-2023 Dxa bone density rex dy 1/> sites axial skel Silvio Older ACCOUNTING SUPERVISOR.INJECTOR ASSEMBLER Work Phone: Start: 06-04-2022 Plain chest X-ray Dr. Carolyne Schuler Work Phone: Start: 05-02-[address] Juila Schuler Work Phone: Start: 05-01-2022 Plain chest X-ray Dr. Carolyne Schuler Work Phone: Start: 04-24-2022 Plain chest X-ray Dr. Carolyne Schuler Work Phone: Start: 04-21-2022 INFLUENZA SEASONAL QUADRIVALENT HIGH DOSE AGE 65+ Anay Schuler MD Work Phone: Start: 04-10-2022 Radiologic exam ches t 2 views Silvio Older ACCOUNTING SUPERVISOR.INJECTOR ASSEMBLER Work Phone: Start: 04-04-2022 Plain chest X-ray Dr. Carolyne Schuler Work Phone: Start: 04-02-2022 Radiologic exam ches t 2 views Silvio Older ACCOUNTING SUPERVISOR.INJECTOR ASSEMBLER Work Phone: Start: 03-31-2022 Inf agent det nuclei c acid clostridium amp probe Silvio Older ACCOUNTING SUPERVISOR.INJECTOR ASSEMBLER Work Phone: Start: 03-20-2022 Radiologic exam ches t 2 views Silvio Older ACCOUNTING SUPERVISOR.INJECTOR ASSEMBLER Work Phone: Start: 02-22-[address] Anay [...] Author Start: 12-13-2027 Diabetes Screening Diabetes Screenin g [facility] Start: 09-13-2027 Diabetes Screening Diabetes Screenin g [facility] Start: 07-25-2027 Diabetes Screening Diabetes Screenin g [facility] Start: 07-02-2026 Diabetes Screening Diabetes Screenin g [facility] Start: 04-09-2026 Diabetes Screening Diabetes Screenin g [facility] Start: 06-03-2025 DIABET[facility]CRE[facility] Start: 06-03-2025 Diabetes Screening Diabetes Screenin g [facility] Start: 04-17-2025 DIABET[facility] SCREEN [facility] Start: 04-10-2025 DIABETES SCREEN DIABETES SCREEN [facility] Start: 04-10-2025 End: 04-10-2025 Patient encounter procedure 04/10/2025 1:40 PM EDT Office Visit [facility] [place] [address] Anay Schuler MD [address] [place] [address] 3 month follow up [facility] [place] Comment on above: 3 month follow up Start: 04-03-2025 DIABETES SCREEN DIABETES SCREEN [facility] Start: 03-20-2025 DIABETES SCREEN [facility] Start: 02-27-2025 Influenza vaccination [facility] Start: 01-12-2025 Screening for osteoporosis Bone Dens ity Screening [facility] Start: 01-09-2025 Evaluation of diagno stic study results [facility] Start: 01-08-2025 DIABETES SCREEN [facility]CREEN [facility] Start: 01-03-2025 End: 01-03-2025 Patient encounter procedure 01/03/2025 2:00 PM EDT Office Visit [facility] [place] [address] [facility] [place] [place] [address] Anay Schuler MD [address] [place], [place] [id number] 2 Month F/U [facility] [place] Comment on above: 2 Month F/U Start: 12-21-2024 End: 12-21-2024 Patient encounter procedure 12/21/2024 2:00 PM EDT Office Visit [facility] [place] [address] [place] [address] Silvio Drake APRN.INJECTOR ASSEMBLER [address] [place] [address] 1 week follow up congestion [facility] [place] Comment on above: 1 week follow up con gestion Start: 12-13-2024 DIABETES SCREEN DIABETES SCREEN [facility] Start: 11-28-2024 End: 11-28-2024 Patient encounter procedure 11/28/2024 3:40 PM EDT Office Visit [facility] [place] [address] [facility] [place] [place] [address] Anay Schuler MD [address] [place] [address] 11/19/24 [facility] Follow Up - ED Utilization [facility] [place] Comment on above: 11/19/24 [facility] Follow Up - ED Utilization Start: 11-28-2024 End: 02-27-2025 CBC W Auto Differential panel - Blood COMPLETE BLOOD COUNT AND DIFFERENTIAL Lab Routine Anemia, unspecified type Expected: 11/28/2024, Expires: 02/27/2025 [facility] Comment on above: Expected: 11/28/2024 , Expires: 02/27/2025 Start: 11-28-2024 End: 02-27-2025 Cobalamin (Vitamin B12) [Mass/volume] in Serum or Plasma VITAMIN B12 Lab Routine Vitamin B12 deficiency Expected: 11/28/2024, Expires: 02/27/2025 [facility] Comment on above: Expected: 11/28/2024 , Expires: 02/27/2025 Start: 11-28-2024 End: 02-27-2025 Ferritin [Mass/volume] in Serum or Plasma FERRITIN Lab Routine Anemia, unspecified type Expected: 11/28/2024, Expires: 02/27/2025 [facility] Comment on above: Expected: 11/28/2024 , Expires: 02/27/2025 Start: 11-28-2024 End: 02-27-2025 Iron and Iron binding capacity panel - Serum or Plasma IRON AND TIBC Lab Routine Anemia, unspecified type Expected: 11/28/2024, Expires: 02/27/2025 [facility] Comment on above: Expected: 11/28/2024 , Expires: 02/27/2025 Start: 11-19-2024 [facility] Start: 11-19-2024 [facility] Start: 11-15-2024 Evaluation of diagno [facility] study results [facility] Start: 11-14-2024 End: 11-14-2024 Patient encounter procedure 11/14/2024 3:40 PM EDT Office Visit [facility] [place] [address] [place] [address] Anay Schuler MD [address] [place] [address] 10/30/24-11/03/24 [facility] F/U - [facility] [place] Comment on above: 10/30/24-11/03/24 [facility] F/ U - AF Start: 11-11-2024 Evaluation of diagno [facility] study results [facility] Start: 11-04-2024 Referral to service [facility] Start: 11-03-2024 Patient discharge [facility] Start: 11-01-2024 Care planning and pr oblem solving actions [facility] Start: 10-31-2024 End: 10-31-2024 [facility] Start: 10-31-2024 End: 10-31-2024 Patient encounter procedure 10/31/2024 2:00 PM EDT Office Visit [facility] [place] [address] [place] [address] Anay Schuler MD [address] [place] [address] 3 month follow up [facility] [place] Comment on above: 3 month follow up Start: 10-31-2024 End: 10-31-2024 Care planning and problem solving actions [facility] Start: 10-31-2024 Referral to occupati onal therapist [facility] Start: 10-31-2024 Referral to service [facility] Start: 10-30-2024 End: 10-31-2024 [facility] Start: 10-30-2024 Care planning and pr oblem solving actions [facility] Start: 10-30-2024 Following clinical p athway protocol [facility] Start: 10-30-2024 Ambulation without limitation [facility] Start: 10-30-2024 Assessment of risk o f venous thromboembolism [facility] Start: 10-30-2024 Insertion of cathete r into peripheral vein [facility] Start: 10-30-2024 Measuring intake and output [facility] Start: 10-30-2024 Providing care accor ding to standard [facility] Start: 10-30-2024 Referral to electrolysis needle operator [facility] Start: 10-30-2024 Verification routine [facility] Start: 10-30-2024 Admission procedure [facility] Start: 10-30-2024 [facility] Start: 10-17-2024 End: 10-17-2024 Patient encounter procedure 10/17/2024 1:40 PM EDT Office Visit [facility] [place] [address] [place] [address] Silvio Drake APRN.INJECTOR ASSEMBLER [address] [place] [address] [facility] follow up / A FIB w/ RVR [facility] [place] Comment on above: [facility] follow up / A FI B w/ RVR Start: 10-13-2024 Patient discharge [facility] Start: 10-12-2024 Care planning and pr oblem solving actions [facility] Start: 10-12-2024 [facility] Start: 10-12-2024 Care planning and pr oblem solving actions [facility] Start: 10-12-2024 Continuous pulse oximetry [facility] Start: 10-11-2024 Following clinical p athway protocol [facility] Start: 10-11-2024 Referral to electrolysis needle operator [facility] Start: 10-11-2024 Assessment of risk o f venous thromboembolism [facility] Start: 10-11-2024 Fall prevention [facility] Start: 10-11-2024 Insertion of cathete r into peripheral vein [facility] Start: 10-11-2024 Introduction of urin karla catheter [facility] Start: 10-11-2024 Measuring intake and output [facility] Start: 10-11-2024 Oxygen therapy [facility] Start: 10-11-2024 Providing care accor ding to standard [facility] Start: 10-11-2024 Provision of activit y privileges [facility] Start: 10-11-2024 Referral to occupati onal therapist [facility] Start: 10-11-2024 Referral to service [facility] Start: 10-11-2024 End: 10-11-2024 [facility] Start: 10-11-2024 Verification routine [facility] Start: 10-11-2024 Admission procedure [facility] Start: 10-11-2024 Hospital admission, emergency, from emergency room, medical nature [facility] Start: 10-11-2024 [facility] Start: 09-09-2024 End: 12-09-2024 Aldosterone [Mass/volume] in Serum or Plasma ALDOSTERONE BLD Lab Routine Accelerated hypertension Expected: 09/09/2024, Expires: 12/09/2024 [facility] Comment on above: Expected: 09/09/2024 , Expires: 12/09/2024 Start: 09-09-2024 End: 12-09-2024 ALDOSTERONE/DIRECT RENIN RATIO ALDOSTERONE/DIRECT RENIN RATIO Lab Routine Accelerated hypertension Expected: 09/09/2024, Expires: 12/09/2024 [facility] Work Phone: Comment on above: Expected: 09/09/2024 , Expires: 12/09/2024 Start: 09-09-2024 End: 12-09-2024 Basic metabolic 2000 panel - Serum or Plasma BASIC METABOLIC PANEL Lab Routine Uncontrolled hypertension Expected: 09/09/2024, Expires: 12/09/2024 [facility] Comment on above: Expected: 09/09/2024 , Expires: 12/09/2024 Start: 09-09-2024 End: 12-09-2024 DIRECT RENIN PLASMA DIRECT RENIN PLASMA Lab Routine Accelerated hypertension Expected: 09/09/2024, Expires: 12/09/2024 [facility] Comment on above: Expected: 09/09/2024 , Expires: 12/09/2024 Start: 09-09-2024 End: 12-09-2024 Magnesium [Mass/volume] in Serum or Plasma MAGNESIUM Lab Routine Uncontrolled hypertension Expected: 09/09/2024, Expires: 12/09/2024 [facility] Comment on above: Expected: 09/09/2024 , Expires: 12/09/2024 Start: 08-27-2024 [facility] Start: 08-26-2024 End: 08-26-2024 Patient encounter procedure [facility] Comment on above: 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] Start: 08-02-2024 End: 08-02-2024 Patient encounter procedure 08/02/2024 1:40 PM EST Office Visit [facility] [place] [address] [place] [address] Anay Schuler MD [address] [place] [address] 3 mo follow up [facility] [place] Comment on above: 3 mo follow up Start: 07-26-2024 End: 11-27-2024 25-hydroxyvitamin D3 [Mass/volume] in Serum or Plasma VITAMIN D 25 HYDROXY Lab Routine Vitamin D deficiency Expected: 07/26/2024, Expires: 11/27/2024 [facility] Comment on above: Expected: 07/26/2024 , Expires: 11/27/2024 Start: 07-26-2024 End: 11-27-2024 CBC panel - Blood by Automated count COMPLETE BLOOD COUNT Lab Routine Stage 3b chronic kidney disease (HCC) Anemia, unspecified type Expected: 07/26/2024, Expires: 11/27/2024 [facility] Work Phone: Comment on above: Expected: 07/26/2024 , Expires: 11/27/2024 Start: 07-26-2024 End: 11-27-2024 Comprehensive metabolic 2000 panel - Serum or Plasma COMPREHENSIVE METABOLIC PANEL Lab Routine Stage 3b chronic kidney disease (HCC) Uncontrolled hypertension Expected: 07/26/2024, Expires: 11/27/2024 [facility] Comment on above: Expected: 07/26/2024 , Expires: 11/27/2024 Start: 07-26-2024 End: 11-27-2024 Lipid 1996 panel - Serum or Plasma LIPID PANEL BASIC Lab Routine Stage 3b chronic kidney disease (HCC) Expected: 07/26/2024, Expires: 11/27/2024 [facility] Comment on above: Expected: 07/26/2024 , Expires: 11/27/2024 Start: 07-26-2024 End: 11-27-2024 Thyrotropin [Units/volume] in Serum or Plasma THYROID STIMULATING HORMONE Lab Routine Hypothyroidism, unspecified type Expected: 07/26/2024, Expires: 11/27/2024 [facility] Comment on above: Expected: 07/26/2024 , Expires: 11/27/2024 Start: 06-29-2024 Advance Directive Discussion Advance Directive Discussion [facility] Start: 06-29-2024 Medicare Advantage A nnual Wellness Visit Medicare Advantage Annual Wellness Visit [facility] Start: 06-10-2024 End: 09-09-2024 Urinalysis complete panel - Urine [facility] Work Phone: Comment on above: Expected: 06/10/2024 , Expires: 09/09/2024 Start: 06-04-2024 DIABETES SCREEN DIABETES SCREEN [facility] Start: 05-30-2024 End: 08-29-2024 Thyroxine (T4) free [Mass/volume] in Serum or Plasma T4 FREE/FREE THYROXINE Lab Routine Hypothyroidism, unspecified type Expected: 05/30/2024, Expires: 08/29/2024 [facility] Comment on above: Expected: 05/30/2024 , Expires: 08/29/2024 Start: 05-30-2024 End: 05-30-2024 Patient encounter procedure 05/30/2024 1:40 PM EST Office Visit [facility] [place] [address] [place] [address] Anay Schuler MD [address] [place] [address] 4 mo follow up, routine [facility] [place] Comment on above: 4 mo follow up, rout ine Start: 05-16-2024 End: 05-16-2024 Patient encounter procedure 05/16/2024 11:40 AM EST Office Visit [facility] [place] [address] [facility], [place] [address] Anay Schuler MD [address] [facility] [place] [address] 4 mo follow up, routine [facility] [place] Comment on above: 4 mo follow up, rout ine Start: 04-15-2024 RSV Vaccine (1 - 1-d ose 60+ series) RSV Vaccine (1 - 1-dose 60+ series) [facility] Comment on above: Postponed from 11/29 (Declined at this time) Start: 04-15-2024 RSV Vaccine (1 - 1-d ose 75+ series) RSV Vaccine (1 - 1-dose 75+ series) [facility] Comment on above: Postponed from 11/29 (Declined at this time) Start: 02-28-2024 Covid-19 Vaccine ( season) Covid-19 Vaccine ( season) [facility] Start: 02-28-2024 Covid-19 Vaccine ( season) Covid-19 Vaccine ( season) [facility] Start: 02-28-2024 Influenza vaccination Influenza Vacc ine (#1) [facility] Start: 09-11-2023 COVID-19 VACCINE (4 - Booster for Moderna series) COVID-19 VACCINE (4 - Booster for Moderna series) [facility] Comment on above: Postponed from 07/22 (Declined at this time) Start: 09-11-2023 COVID-19 VACCINE (4 - Moderna series) COVID-19 VACCINE (4 - Moderna series) [facility] Comment on above: Postponed from 07/22 (Declined at this time) Start: 09-11-2023 SHINGRIX VACCINE (1 of 2) MONREAL GRIX VACCINE (1 of 2) [facility] Comment on above: Postponed from 11/29 (Declined at this time) Start: 07-16-2023 Patient discharge [facility] Start: 07-16-2023 Referral to service [facility] Start: 07-13-2023 Ambulation without limitation [facility] Start: 07-13-2023 Application of ice c ollar, cap or bag [facility] Start: 07-13-2023 Assessment of risk o f venous thromboembolism [facility] Start: 07-13-2023 Insertion of cathete r into peripheral vein [facility] Start: 07-13-2023 Measuring intake and output [facility] Start: 07-13-2023 Oxygen therapy [facility] Start: 07-13-2023 Providing care accor ding to standard [facility] Start: 07-13-2023 Referral to occupati onal therapist [facility] Start: 07-13-2023 Referral to service [facility] Start: 07-13-2023 [facility] Start: 07-13-2023 Following clinical p athway protocol [facility] Start: 07-13-2023 Respiratory pathogen s DNA and RNA panel - Respiratory specimen by GUERA with probe detection [facility] Start: 07-13-2023 Verification routine [facility] Start: 07-13-2023 Admission procedure [facility] Start: 07-13-2023 End: 07-13-2023 X-ray of both feet Foot min 3 Views [facility] Start: 07-13-2023 X-ray of lumbar spin e, two or three views Lumbar Spine 2 or 3 Views [facility] Start: 07-13-2023 XR Foot GE 3 Views [facility] Start: 07-13-2023 XR Lumbar spine 2 or 3 Views [facility] Start: 07-13-2023 [facility] Start: 07-13-2023 Hospital admission, emergency, from emergency room, medical nature [facility] Start: 07-13-2023 [facility] Start: 06-29-2023 Advance Directive Discussion Advance Directive Discussion [facility] Start: 06-29-2023 Behavioral Health Screening Behavioral Health Screening [facility] Start: 06-29-2023 Depression Assessment Depression Ass essment [facility] Start: 06-07-2023 Urine microalbumin profile [facility] Start: 02-27-2023 Covid-19 Vaccine () Covid-19 Vaccine () [facility] Start: 02-27-2023 Influenza vaccination [facility] Start: 10-31-2022 Egd transoral biopsy single/multiple EGD BIOPSY SINGLE/MULTIPLE [facility] Start: 10-31-2022 Egd transoral contro l bleeding any method EGD CONTROL BLEEDING ANY [facility] Start: 10-31-2022 Patient discharge [facility] Start: 09-10-2022 End: 11-10-2022 CBC W Auto Differential panel - Blood CBC + DIFF Lab Routine Essential hypertension Expected: 09/10/2022, Expires: 11/10/2022 [facility] Work Phone: Comment on above: Expected: 09/10/2022 , Expires: 11/10/2022 Start: 09-10-2022 End: 11-10-2022 Comprehensive metabolic 2000 panel - Serum or Plasma COMP METABOLIC PANEL Lab Routine Essential hypertension Expected: 09/10/2022, Expires: 11/10/2022 [facility] Work Phone: Comment on above: Expected: 09/10/2022 , Expires: 11/10/2022 Start: 09-10-2022 End: 11-10-2022 Thyrotropin [Units/volume] in Serum or Plasma TSH BLD Lab Routine Essential hypertension Hypothyroidism, unspecified type Expected: 09/10/2022, Expires: 11/10/2022 [facility] Work Phone: Comment on above: Expected: 09/10/2022 , Expires: 11/10/2022 Start: 06-29-2022 ADVANCE DIRECTIVE DISCUSSION ADVANCE DIRECTIVE DISCUSSION [facility] Start: 06-29-2022 DEPRESSION ASSESSMENT DEPRESSION ASS ESSMENT [facility] Start: 06-04-2022 [facility] Start: 05-22-2022 End: 05-21-2023 Radiologic exam chest 2 views XR CHEST 2V FRONTAL/LAT Radiology Routine History of recent pneumonia Expected: 05/22/2022, Expires: 05/21/2023 [facility] Work Phone: Comment on above: Expected: 05/22/2022 , Expires: 05/21/2023 Start: 05-12-2022 Blood chemistry [facility] Work Phone: Start: 05-11-2022 Blood chemistry [facility] Work Phone: Start: 05-10-2022 Blood chemistry [facility] Work Phone: Start: 05-09-2022 Blood chemistry [facility] Work Phone: Start: 05-08-2022 Blood chemistry [facility] Work Phone: Start: 05-07-2022 End: 07-07-2022 Basic metabolic 2000 panel - Serum or Plasma BASIC METABOLIC PNL Lab Routine Essential hypertension Expected: 05/07/2022, Expires: 07/07/2022 [facility] Work Phone: Comment on above: Expected: 05/07/2022 , Expires: 07/07/2022 Start: 05-07-2022 End: 07-07-2022 CBC W Auto Differential panel - Blood CBC + DIFF Lab Routine Essential hypertension Expected: 05/07/2022, Expires: 07/07/2022 [facility] Work Phone: Comment on above: Expected: 05/07/2022 , Expires: 07/07/2022 Start: 05-07-2022 Blood chemistry [facility] Work Phone: Start: 05-06-2022 Blood chemistry [facility] Work Phone: Start: 05-05-2022 Patient discharge [facility] Start: 05-03-2022 [facility] Start: 05-02-2022 Referral to cooler service supervisor [facility] Start: 05-02-2022 Care planning and pr oblem solving actions [facility] Start: 05-01-2022 Following clinical p athway protocol [facility] Start: 05-01-2022 Application of elast ic bandage [facility] Start: 05-01-2022 Assessment of risk o f venous thromboembolism [facility] Start: 05-01-2022 Catheterization of vein [facility] Start: 05-01-2022 Elevation of affecte d extremity [facility] Start: 05-01-2022 Incentive spirometry [facility] Start: 05-01-2022 Insertion of cathete r into peripheral vein [facility] Start: 05-01-2022 Measuring intake and output [facility] Start: 05-01-2022 Notification of physician [facility] Start: 05-01-2022 Patient education [facility] Start: 05-01-2022 Providing care accor ding to standard [facility] Start: 05-01-2022 Provision of activit y privileges [facility] Start: 05-01-2022 Referral to electrolysis needle operator [facility] Start: 05-01-2022 Referral to occupati onal therapist [facility] Start: 05-01-2022 Referral to service [facility] Start: 05-01-2022 [facility] Start: 05-01-2022 Troponin I measurement [facility] Work Phone: Start: 05-01-2022 Admission procedure [facility] Start: 05-01-2022 End: 05-02-2022 [facility] Start: 05-01-2022 Patient referral to dietitian [facility] Start: 04-24-2022 Plain chest X-ray Chest 1 View (Port able) [facility] Work Phone: Start: 04-24-2022 XR Chest Single view [facility] Work Phone: Start: 04-14-2022 End: 06-14-2022 Hemoglobin [Mass/volume] in Blood HEMOGLOBIN (HGB) Lab Routine Anemia, unspecified type Expected: 04/14/2022, Expires: 06/14/2022 [facility] Work Phone: Comment on above: Expected: 04/14/2022 , Expires: 06/14/2022 Start: 04-11-2022 End: 06-11-2022 Basic metabolic 2000 panel - Serum or Plasma BASIC METABOLIC PNL Lab Routine Hypotension, unspecified hypotension type GERI (acute kidney injury) (HCC) Expected: 04/11/2022, Expires: 06/11/2022 [facility] Work Phone: Comment on above: Expected: 04/11/2022 , Expires: 06/11/2022 Start: 04-09-2022 End: 06-09-2022 Basic metabolic 2000 panel - Serum or Plasma BASIC METABOLIC PNL Lab Routine Congestive heart failure, unspecified HF chronicity, unspecified heart failure type (HCC) Expected: 04/09/2022, Expires: 06/09/2022 [facility] Work Phone: Comment on above: Expected: 04/09/2022 , Expires: 06/09/2022 Start: 04-09-2022 End: 06-09-2022 CBC W Auto Differential panel - Blood CBC + DIFF Lab Routine Congestive heart failure, unspecified HF chronicity, unspecified heart failure type (HCC) Expected: 04/09/2022, Expires: 06/09/2022 [facility] Work Phone: Comment on above: Expected: 04/09/2022 , Expires: 06/09/2022 Start: 04-09-2022 End: 06-09-2022 Magnesium [Mass/volume] in Serum or Plasma MAGNESIUM BLD Lab Routine Hypokalemia Expected: 04/09/2022, Expires: 06/09/2022 [facility] Work Phone: Comment on above: Expected: 04/09/2022 , Expires: 06/09/2022 Start: 04-09-2022 End: 06-09-2022 Thyrotropin [Units/volume] in Serum or Plasma TSH BLD Lab Routine Hypothyroidism, unspecified type Expected: 04/09/2022, Expires: 06/09/2022 [facility] Work Phone: Comment on above: Expected: 04/09/2022 , Expires: 06/09/2022 Start: 04-04-2022 [facility] Work Phone: Start: 04-02-2022 End: 06-02-2022 Basic metabolic 2000 panel - Serum or Plasma BASIC METABOLIC PNL Lab Routine Hypokalemia Expected: 04/02/2022, Expires: 06/02/2022 [facility] Work Phone: Comment on above: Expected: 04/02/2022 , Expires: 06/02/2022 Start: 03-20-2022 End: 05-20-2022 CBC W Auto Differential panel - Blood [facility] Work Phone: Comment on above: Expected: 03/20/2022 , Expires: 05/20/2022 Start: 03-20-2022 End: 05-20-2022 Comprehensive metabolic 2000 panel - Serum or Plasma [facility] Work Phone: Comment on above: Expected: 03/20/2022 , Expires: 05/20/2022 Start: 03-10-2022 End: 05-10-2022 CBC W Auto Differential panel - Blood [facility] Work Phone: Comment on above: Expected: 03/10/2022 , Expires: 05/10/2022 Start: 03-10-2022 End: 05-10-2022 Thyrotropin [Units/volume] in Serum or Plasma [facility] Work Phone: Comment on above: Expected: 03/10/2022 , Expires: 05/10/2022 Start: 02-27-2022 Influenza vaccination INFLUENZA (#1) [facility] Start: 02-23-2022 Patient discharge [facility] Work Phone: Start: 02-23-2022 Blood chemistry [facility] Work Phone: Start: 02-22-2022 Blood chemistry [facility] Work Phone: Start: 02-22-2022 [facility] Work Phone: Start: 02-21-2022 Application of intermittent pneumatic compression device [facility] Work Phone: Start: 02-21-2022 Catheterization of vein [facility] Work Phone: Start: 02-21-2022 Notification of physician [facility] Work Phone: Start: 02-21-2022 Referral to gastroenterology service [facility] Work Phone: Start: 02-21-2022 Assessment of risk o f venous thromboembolism [facility] Work Phone: Start: 02-21-2022 Insertion of cathete r into peripheral vein [facility] Work Phone: Start: 02-21-2022 Measuring intake and output [facility] Work Phone: Start: 02-21-2022 End: 02-21-2022 Oxygen therapy [facility] Work Phone: Start: 02-21-2022 Providing care accor ding to standard [facility] Work Phone: Start: 02-21-2022 Provision of activit y privileges [facility] Work Phone: Start: 02-21-2022 Referral to electrolysis needle operator [facility] Work Phone: Start: 02-21-2022 Referral to occupati onal therapist [facility] Work Phone: Start: 02-21-2022 Referral to service [facility] Work Phone: Start: 02-21-2022 Tobacco use cessatio n education [facility] Work Phone: Start: 02-21-2022 [facility] Work Phone: Start: 02-21-2022 Troponin I measurement [facility] Work Phone: Start: 02-21-2022 Following clinical p athway protocol [facility] Work Phone: Start: 02-21-2022 Admission procedure [facility] Work Phone: Start: 02-21-2022 [facility] Work Phone: Start: 01-16-2022 End: 03-18-2022 25-hydroxyvitamin D3 [Mass/volume] in Serum or Plasma VITAMIN D 25 HYDROXY Lab Routine History of osteoporosis shelter use of alendronate therapy Expected: 01/16/2022, Expires: 03/18/2022 [facility] Work Phone: Comment on above: Expected: 01/16/2022 , Expires: 03/18/2022 Start: 12-25-2021 End: 02-24-2022 Basic metabolic 2000 panel - Serum or Plasma BASIC METABOLIC PNL Lab Routine Hypertensive kidney disease with stage 3b chronic kidney disease (HCC) Expected: 12/25/2021, Expires: 02/24/2022 [facility] Work Phone: Comment on above: Expected: 12/25/2021 , Expires: 02/24/2022 Start: 09-24-2021 COVID-19 VACCINE (4 - Booster for Moderna series) COVID-19 VACCINE (4 - Booster for Moderna series) [facility] Start: 07-22-2021 COVID-19 VACCINE (4 - Booster for Moderna series) COVID-19 VACCINE (4 - Booster for Moderna series) [facility] Start: 06-29-2021 ADVANCE DIRECTIVE DISCUSSION ADVANCE DIRECTIVE DISCUSSION [facility] Start: 06-29-2021 DEPRESSION ASSESSMENT DEPRESSION ASS ESSMENT [facility] Start: 11-30-2011 RSV Vaccine (1 - 1-d ose 75+ series) RSV Vaccine (1 - 1-dose 75+ series) [facility] Start: 1996 RSV Vaccine (1 - 1-d ose 60+ series) RSV Vaccine (1 - 1-dose 60+ series) [facility] Start: 1986 SHINGRIX VACCINE (1 of 2) [facility] Start: 1954 Anxiety Screening Anxiety Screening [facility] Start: 1954 Depression Screening Depression Scre ening [facility] Anion gap in Serum o r Plasma [facility] Anion gap measurement [facility] Work Phone: Bacteria identified in Urine by Culture Urine Culture [facility] Work Phone: Bacteria identified in Urine by Culture URINE CULTURE Microbiology Routine Urinary frequency Ordered: 06/10/2024 [facility] Work Phone: Comment on above: Ordered: 06/10/2024 Bacteria identified in Urine by Culture BACTERIAL CULTURE, URINE Microbiology Routine Frequency of urination Dysuria Leukocytes in urine 09/26/2024 2:20 PM EDT [facility] Work Phone: Bacteria identified in Urine by Culture BACTERIAL CULTURE, URINE Microbiology Routine Dysuria Ordered: 10/08/2024 [facility] Comment on above: Ordered: 10/08/2024 BUN/Creatinine ratio [facility] Work Phone: BUN/Creatinine ratio [facility] Calcium [Mass/volume ] in Serum or Plasma [facility] Work Phone: Calcium [Mass/volume ] in Serum or Plasma [facility] Carbon dioxide, tota l [Moles/volume] in Central venous blood [facility] Carbon dioxide, tota l [Moles/volume] in Serum or Plasma [facility] Work Phone: Cardioversion [facility] Work Phone: End: 12-10-2022 CBC panel - Blood by Automated count CBC Lab Routine Essential hypertension Every 6 months for 12 Occurrences starting 12/10/2021 until 12/10/2022 [facility] Work Phone: Comment on above: Every 6 months for 1 2 Occurrences starting 12/10/2021 until 12/10/2022 Chloride [Moles/volu me] in Serum or Plasma [facility] Work Phone: Cholesterol [Mass/vo lume] in Serum or Plasma [facility] Work Phone: Cholesterol in HDL [Mass/volume] in Serum or Plasma [facility] Work Phone: Cholesterol in LDL [Mass/volume] in Serum or Plasma [facility] Work Phone: Clostridioides diffi cile toxin genes [Presence] in Stool by GUERA with probe detection C. DIFFICILE PCR Lab Routine Diarrhea, unspecified type Fatigue, unspecified type Ordered: 03/20/2022 [facility] Work Phone: Comment on above: Ordered: 03/20/2022 End: 06-14-2023 Comprehensive metabolic 2000 panel - Serum or Plasma COMP METABOLIC PANEL Lab Routine Essential hypertension Every 6 months for 12 Occurrences starting 12/10/2021 until 12/10/2022 [facility] Work Phone: Comment on above: Every 6 months for 1 2 Occurrences starting 12/10/2021 until 12/10/2022 Creatinine [Mass/vol ume] in Serum or Plasma [facility] Creatinine [Moles/vo lume] in Serum or Plasma [facility] Work Phone: End: 02-06-2024 DXA-AXIAL SKELETON DXA-AXIAL SKELETON Radiology Routine 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, subsequent encounter 1 Occurrences starting 01/07/2023 until 02/06/2024 [facility] Work Phone: Comment on above: 1 Occurrences starti ng 01/07/2023 until 02/06/2024 Glucose [Mass/volume ] in Serum or Plasma [facility] Work Phone: Glucose [Mass/volume ] in Serum or Plasma [facility] End: 01-11-2025 HEARING TEST/AUDIOGRAM HEARING TEST/AUDIOGRAM Audiology Routine Bilateral hearing loss, unspecified hearing loss type 1 Occurrences starting 01/11/2024 until 01/11/2025 [facility] Work Phone: Comment on above: 1 Occurrences starti ng 01/11/2024 until 01/11/2025 Hematocrit [Volume Fraction] of Blood [facility] Work Phone: Hemoglobin [Mass/vol ume] in Blood [facility] Work Phone: Hemoglobin.gastroint estina l.lower [Presence] in Stool by Immunoassay IMMUNOCHEMICAL FECAL OCCULT BLOOD TEST Lab Routine Anemia, unspecified type Ordered: 11/28/2024 [facility] Work Phone: Comment on above: Ordered: 11/28/2024 Influenza virus A an d B RNA and SARS-CoV-2 (COVID-19) N gene panel - Respiratory specimen by GUERA with probe detection COVID WITH FLUA+B, ROUTINE Microbiology Routine Acute cough Nausea Diarrhea, unspecified type Fatigue, unspecified type 03/20/2022 3:22 PM EDT [facility] Work Phone: Leukocytes [#/volume ] in Blood [facility] Work Phone: End: 12-10-2022 Lipid 1996 panel - Serum or Plasma LIPID PANEL BASIC Lab Routine Mixed hyperlipidemia Every 6 months for 12 Occurrences starting 12/10/2021 until 12/10/2022 [facility] Work Phone: Comment on above: Every 6 months for 1 2 Occurrences starting 12/10/2021 until 12/10/2022 Mean corpuscular hemoglobin concentration determination [facility] Work Phone: Mean corpuscular hemoglobin determination [facility] Work Phone: Measurement of renal function [facility] Work Phone: Measurement of renal function [facility] Neutrophil count [facility] Work Phone: Neutrophil percent differential count [facility] Work Phone: NM Heart Views W str ess and W radionuclide IV [facility] Work Phone: Patient Education [facility] Work Phone: Patient referral [facility] Work Phone: Platelets [#/volume] in Blood [facility] Work Phone: Potassium [Moles/vol ume] in Serum or Plasma [facility] Work Phone: Potassium measurement [facility] End: 05-02-2023 Radiologic exam chest 2 views XR CHEST 2V FRONTAL/LAT Radiology Routine Acute cough Shortness of breath 1 Occurrences starting 04/02/2022 until 05/02/2023 [facility] Work Phone: Comment on above: 1 Occurrences starti ng 04/02/2022 until 05/02/2023 Radiologic exam ches t 2 views XR CHEST 2V FRONTAL/LAT Radiology Routine Acute cough Shortness of breath 04/02/2022 4:50 PM EDT [facility] Work Phone: End: 05-10-2023 Radiologic exam chest 2 views XR CHEST 2V FRONTAL/LAT Radiology Routine Acute cough 1 Occurrences starting 04/10/2022 until 05/10/2023 [facility] Work Phone: Comment on above: 1 Occurrences starti ng 04/10/2022 until 05/10/2023 Radiologic exam ches t 2 views XR CHEST 2V FRONTAL/LAT Radiology Routine Acute cough 04/10/2022 11:46 AM EDT [facility] Work Phone: Red blood cell count [facility] Work Phone: Red cell distributio n width determination [facility] Work Phone: Serum chloride measurement [facility] Sodium [Moles/volume ] in Serum or Plasma [facility] Work Phone: Sodium measurement [facility] Thyroid stimulating hormone measurement [facility] End: 12-10-2022 Thyrotropin [Units/volume] in Serum or Plasma TSH BLD Lab Routine Hypothyroidism, unspecified type Every 3 months for 24 Occurrences starting 12/10/2021 until 12/10/2022 [facility] Work Phone: Comment on above: Every 3 months for 2 4 Occurrences starting 12/10/2021 until 12/10/2022 Triglycerides measurement [facility] Work Phone: Troponin I measurement [facility] Work Phone: Troponin T.cardiac [Mass/volume] in Serum or Plasma by High sensitivity method [facility] UA DIP, URINE (POC) UA DIP, URIN E (POC) Lab Routine Dysuria Ordered: 10/08/2024 [facility] Work Phone: Comment on above: Ordered: 10/08/2024 Urea nitrogen [Mass/volume] in Serum or Plasma [facility] Work Phone: Urea nitrogen [Mass/volume] in Serum or Plasma [facility] Heart limited [facility] End: 08-02-2025 .doppler Extremity arteries - bilateral for physiologic artery study PVR ANK PRESS [facility] Vascular Lab Routine Exercise-induced leg fatigue 1 Occurrences starting 08/02/2024 until 08/02/2025 [facility] Work Phone: Comment on above: 1 Occurrences starti ng 08/02/2024 until 08/02/2025 End: 08-02-2025 US.doppler Extremity arteries - bilateral for physiologic artery study at rest and with exercise PVR ANK PRESS W/EXC [facility] Vascular Lab Routine Exercise-induced leg fatigue 1 Occurrences starting 08/02/2024 until 08/02/2025 [facility] Comment on above: 1 Occurrences starti ng 08/02/2024 until 08/02/2025 Vitamin D, 25-hydrox y measurement [facility] Vitamin D, 25-hydrox y measurement [facility] VLDL cholesterol measurement [facility] Work Phone: XR Chest PA and Lateral XR CHEST 2V FRONTAL/LAT Radiology Routine Acute cough Dyspnea, unspecified type Abnormal breath sounds 12/12/2024 3:21 PM EDT [facility] Work Phone: End: 01-11-2026 XR Chest PA and Lateral XR CHEST 2V FRONTAL/LAT Radiology Routine Acute cough Dyspnea, unspecified type Abnormal breath sounds 1 Occurrences starting 12/12/2024 until 01/11/2026 [facility] Work Phone: Comment on above: 1 Occurrences starti ng 12/12/2024 until 01/11/[address] [facility] Immunizations Immunization Date Immunization Notes Care Provider Michelle novak 04-09-2023 influenza (HD-IIV4) vaccine, age 65+ yr, high dose, quadrivalent, PF (FLUZONE HIGH-DOSE) Silvio Drake ACCOUNTING SUPERVISOR.INJECTOR ASSEMBLER Work Phone: [facility] 04-09-2023 influenza virus vacc ine, unspecified formulation Anay Schuler MD Work Phone: [facility] 04-21-2022 influenza, high-dose , quadrivalent vaccine (FLUZONE HIGH DOSE QUADRIVALENT) Anay Schuler MD Work Phone: [facility] Work Phone: 04-21-2022 influenza virus vacc ine, unspecified formulation Anay Schuler MD Work Phone: [facility] 04-02-2021 influenza (aIIV4) vaccine, age 65+ yr, quadrivalent, PF (FLUAD QUAD) Brittani Oswald MA [facility] Work Phone: 04-02-2021 influenza, high dose seasonal, preservative-free Anay Schuler MD Work Phone: [facility] 08-24-2020 COVID-19 vaccine, fu ll dose (MODERNA) Anay Schuler MD Work Phone: [facility] Work Phone: 07-27-2020 COVID-19 vaccine, fu ll dose (MODERNA) Anay Schuler MD Work Phone: [facility] Work Phone: 03-08-2020 influenza, injectabl e, quadrivalent, preservative free Anay Schuler MD Work Phone: [facility] Work Phone: 03-08-2020 pneumococcal polysaccharide vaccine, 23 valent Anay Schuler MD Work Phone: [facility] Work Phone: 03-31-2019 Seasonal trivalent influenza vaccine, adjuvanted, preservative free Brittani Oswald MA [facility] Work Phone: 03-30-2018 Seasonal trivalent influenza vaccine, adjuvanted, preservative free Brittani Oswald MA [facility] Work Phone: 03-30-2017 influenza, high dose seasonal, preservative-free Anay Schuler MD Work Phone: [facility] Work Phone: 03-30-2017 influenza, injectabl e, quadrivalent, preservative free Brittani Oswald MA [facility] Work Phone: 03-30-2017 influenza, seasonal, injectable Dr. Anay Schuler Work Phone: [facility] 03-30-2017 influenza, seasonal, injectable, preservative free Anay Schuler MD Work Phone: [facility] Work Phone: 03-26-2016 influenza, high dose seasonal, preservative-free Anay Schuler MD Work Phone: [facility] Work Phone: 01-28-2016 pneumococcal polysaccharide vaccine, 23 valent Anay Schuler MD Work Phone: [facility] Work Phone: 04-25-2015 pneumococcal conjuga te vaccine, 13 valent Anay Schuler MD Work Phone: [facility] Work Phone: 03-31-2014 influenza virus vacc ine, unspecified formulation Anay Schuler MD Work Phone: [facility] 06-07-2013 tetanus toxoid, redu dionicio diphtheria toxoid, and acellular pertussis vaccine, adsorbed Anay Schuler MD Work Phone: [facility] 07-15-2011 influenza virus vacc ine, unspecified formulation Anay Schuler MD Work Phone: [facility] 04-08-2010 influenza virus vacc ine, unspecified formulation Anay Schuler MD Work Phone: [facility] Work Phone: 07-30-2000 pneumococcal polysaccharide vaccine, 23 valent Anay Schuler MD Work Phone: [facility] Work Phone: 10-28-1995 diphtheria and tetan us toxoids, adsorbed for pediatric use Anay Schuler MD Work Phone: [facility] Work Phone: Payers Date Payer Category Payer Self-pay [id number] 2023 Medicare (Managed Care) [employer] [id number] 2021 Medicare [employer] MEDICARE [employer] MED[employer] PPO [id number] 2021-Present [phone] [address] [place], [place] [address] PPO [id number] 2021 Medicare [id number] Medicare [id number] Unknown [id number] Unknown [id number] Unknown [id number] Unknown [id number] .0.1.660082.3.579. 2.462 Unknown [id number] .0.1.422284.3.579. 2.462 Unknown [id number] 2.0.1.025933.3.579. 2.462 Unknown [id number] .0.1.951420.3.579. 2.462 Unknown [id number] 2.16.840.1.492693.3.579. 2.462 Unknown [id number] 2.16.840.1.119989.3.579. 2.462 Unknown [id number] 2.16.840.1.783576.3.579. 2.462 Unknown [id number] 2.16.840.1.910701.3.579. 2.462 Unknown [id number] 2.16.840.1.510454.3.579. 2.462 Unknown [id number] 2.16.840.1.658667.3.579. 2.462 Unknown [id number] 2.16.840.1.179548.3.579. 2.462 Unknown [id number] 2.16.840.1.610837.3.579. 2.462 Unknown [id number] 2.16.840.1.633534.3.579. 2.462 Unknown [id number] 2.16.840.1.313670.3.579. 2.462 Unknown [id number] 2.16.840.1.536832.3.579. 2.462 Unknown [id number] 2.16.840.1.998739.3.579. 2.462 Unknown [id number] 2.16.840.1.984377.3.579. 2.462 Unknown [id number] 2.16840.1.805217.3.579. 2.462 Unknown [id number] 2.16840.1.762633.3.579. 2.462 Unknown [id number] 2.16.840.1.073786.3.579. 2.462 Unknown [id number] 2.16.840.1.117436.3.579. 2.462 Unknown [id number] 2.16.840.1.872648.3.579. 2.462 Unknown [id number] 2.16.840.1.319824.3.579. 2.462 Unknown [id number] 2.16.840.1.647409.3.579. 2.462 Unknown [id number] 2.16.840.1.915841.3.579. 2.462 Unknown [id number] 2.16.840.1.305840.3.579. 2.462 Unknown [id number] 2.16.840.1.302240.3.579. 2.462 Unknown [id number] 2.16.840.1.884868.3.579. 2.462 Unknown [id number] 2.16.840.1.275336.3.579. 2.462 Unknown [id number] 2.16.840.1.830963.3.579. 2.462 Unknown [id number] 2.16.840.1.799114.3.579. 2.462 Unknown [id number] 2.16.840.1.012372.3.579. 2.462 Unknown [id number] 2.16.840.1.179741.3.579. 2.462 Unknown [id number] 2.16.840.1.197330.3.579. 2.462 Unknown [id number] 2.16.840.1.312875.3.579. 2.462 Unknown [id number] 2.16.840.1.076236.3.579. 2.462 Social History Date Type Detail Facility Start: 02-21-2022 End: 11-19-2024 Tobacco smoking status WAIS Ex-smoker [facility] Start: 07-06-1971 End: 07-06-1976 History of tobacco use Current smoker [facility] Start: 06-11-2021 End: 01-03-2025 Alcohol intake Current non-drinker of alcohol (finding) [facility] Start: 1935 Sex Assigned At Not on file [facility] Start: 08-26-2020 End: 05-07-2022 Exposure to SARS-CoV-2 (event) Not sure [facility] Work Phone: Start: 02-13-2022 End: 08-20-2023 Tobacco smoking status NHIS Unknown if ever smoked [facility] Start: 1935 Sex Assigned At Female W [facility] Start: 07-06-1971 End: 07-06-1976 History of tobacco use Cigarette Smoker [facility] Work Phone: Start: 02-21-2022 End: 05-30-2024 Tobacco use and exposure Smokeless tobacco non-user [facility] Work Phone: Start: 02-21-2022 Tobacco Comment Quit 4- 5 cig per day [facility] Start: 03-11-2022 End: 04-02-2022 Exposure to SARS-CoV-2 (event) Unable to assess [facility] Start: 01-07-2023 End: 08-02-2024 History of Social function [facility] Work Phone: Start: 01-07-2023 End: 08-02-2024 Tobacco use panel [facility] Work Phone: Adult Depression Screening Assessment 0 [facility] Work Phone: Start: 02-04-2018 None [facility] Start: 02-04-2018 Spouse/ Signif icant Other [facility] Start: 02-05-2018 Non-smoker [facility] Start: 10-11-2024 End: 11-02-2024 Sex Female (finding) [facility] (I/We) worried whether (my/our) food would run out before (I/we) got money to buy more. Never true [facility] In the past 12 months, was there a time when you were not able to pay the mortgage or rent on time? No [facility] NEGATED: Highlighted row [facility] Medical Equipment Procedure Code Equipment Code Equipment Origin al Text Equipment Identifier Dates Tmt-Rd-T-Kind Implant - [id number] Start: 12-14-2012 Comment on above: Description: 6.6 [...] Assessment Result Facility 11-03-2024 Functional status Ambulates;Chair [facility] Work Phone: 11-02-2024 Functional status Ambulates [facility] Work Phone: 10-13-2024 Functional status Ambulates;Dangle Feet W [facility] Work Phone: 10-12-2024 Functional status Well [facility] Work Phone: 07-16-2023 Functional status Ambulates [facility] Work Phone: 05-05-2022 Functional status Ambulates;Chair [facility] Work Phone: 05-04-2022 Functional status None [facility] Work Phone: 02-23-2022 Functional status Ambulates [facility] Work Phone: 11-07-2014 Are you deaf, or do you have serious difficulty hearing No 11/07/2014 9:56 AM Chacha Qureshi LPN No [facility] 11-07-2014 Are you blind, or do you have serious difficulty seeing, even when wearing glasses No 11/07/2014 9:56 AM Chacha Qureshi LPN No [facility] 11-07-2014 Do you have serious difficulty walking or climbing stairs No 11/07/2014 9:56 AM Chacha Qureshi LPN No [facility] 11-07-2014 Do you have difficul ty dressing or bathing No 11/07/2014 9:56 AM Chacha Qureshi LPN No [facility] 11-07-2014 Because of a physica l, mental, or emotional condition, do you have difficulty doing errands alone such as visiting a physician's office or shopping No 11/07/2014 9:56 AM Chacha Qureshi LPN No [facility] Mental Status Date Assessment Result Facility 11-19-2024 Cognitive function Awake;Alert;A ppropriate;Fo llows Commands [facility] Work Phone: 11-03-2024 Cognitive function Voice/Name [facility] Work Phone: 11-02-2024 Cognitive function Voice/Name [facility] Work Phone: 10-13-2024 Cognitive function Voice/Name [facility] Work Phone: 10-11-2024 Cognitive function Voice/Name [facility] Work Phone: 08-26-2024 Cognitive function Awake;Alert;A ppropriate;Fo llows Commands [facility] Work Phone: 07-16-2023 Cognitive function Voice/Name [facility] Work Phone: 07-13-2023 Cognitive function Level Of Cons ciousness Drowsy [facility] Work Phone: 10-31-2022 Cognitive function Touch/Shaking [facility] Work Phone: 06-04-2022 Cognitive function Voice/Name [facility] Work Phone: 05-05-2022 Cognitive function Voice/Name [facility] Work Phone: 05-01-2022 Cognitive function Awake;Alert;Lethargic [facility] Work Phone: 04-24-2022 Cognitive function Level Of Cons ciousness Awake;Alert;Appropriate [facility] Work Phone: 02-23-2022 Cognitive function Voice/Name [facility] Work Phone: 02-21-2022 Cognitive function Level Of Cons ciousness Awake;Alert;Appropriate;Fo llows Commands [facility] Work Phone: 11-07-2014 Because of a physica l, mental, or emotional condition, do you have serious difficulty concentrating, remembering, or making decisions No 11/07/2014 9:56 AM AMANDAT Chacha Juarez LPN No [facility] Clinical Notes 12-14-2012 to 01-03-2025 Anay Schuler MD - 01/03/2025 4:32 PM EDTPatient InstructionsTelephone Encounter - Brianne Toribio RN - 01/02/2025 11:22 AM Silvio Barron APRN.INJECTOR ASSEMBLER - 12/21/2024 2:10 PM EDTPatient Instructions Note Date & Type Note Facility 01-03-2025 Note HNO ID: [id number] Author: ANAY SCHULER MD Service: ? Author [...] previous measurement. R (more content not included)... [facility] 01-03-2025 History of Presen t illness [...] excuse any unintended typographical errors. Recording using ambient Versus software for draft documentation of the visit was discussed with the patient/authorized business office representative; all questions welcomed and answered. Patient/authorized business office representative agreed to proceed Anay Schuler MD documented in this encounter [facility] 01-03-2025 Instructions Anay Schuler MD - [...] your heart rhythm. documented in this encounter [facility] 01-02-2025 Telephone encounter Note The patient [...] Toribio RN January 02, 2025 11:23 AM [facility] 01-02-2025 Miscellaneous Notes The patient has [...] 2025 11:23 AM documented in this encounter [facility] 12-21-2024 Note HNO ID: [id number] Author: SILVIO DRAKE APRN.INJECTOR ASSEMBLER Service: ? Author Type: Nurse Practitioner Type: [...] amiodarone during hospitalization for a-fib. HTN: Ms. lEizabeth denies headache, chest pain, palpitations, dyspnea, and [...] 2 (age, bleeding) At risk for stroke [id number] = 4 (HTN, age2, female gender) Benign [...] Glaucoma - right eye left eye - [facility] . Dr Gao REPAIR FIRST ABDOMINAL [...] 1 tablet b (more content not included)... [facility] 12-21-2024 History of Presen t illness [...] 2 (age, bleeding) At risk for stroke [id number] = 4 (HTN, age2, female gender) Benign [...] Glaucoma - right eye left eye - [facility] . Dr Gao REPAIR FIRST ABDOMINAL [...] IF UNABLE, PLEASE REFER TO [facility] AT [facility]. DX: EDEMA latanoprost (XALATAN) 0.005 % [...] Silvio Drake APRN.CNP documented in this encounter [facility] 12-17-2024 Telephone encounter Note Patient notified. [facility] 12-17-2024 Miscellaneous Notes Patient notified. Good news is no pneumonia but chest xray indicates she needs to take her lasix with potassium daily for the next 3 days. She needs to be weighing herself daily and take this if she has 3-5 pound weight gain. Thank you Silvio Drake APRN.CNP documented in this encounter [facility] 12-16-2024 Telephone encounter Note Good news is no pneumonia but chest xray indicates she needs to take her lasix with potassium daily for the next 3 days. She needs to be weighing herself daily and take this if she has 3-5 pound weight gain. Thank you Silvio Drake APRN.CNP [facility] 12-16-2024 Telephone encounter Note Patient notified. [facility] 12-16-2024 Miscellaneous Notes Patient notified. ----- [...] Anay Schuler MD documented in this encounter [facility] 12-16-2024 Telephone encounter Note ----- Message from Anay Schuler MD sent at 12/15/2024 4:37 PM EDT ----- hi Reinier, As you know, we are investigating your [...] you have questions. Regards, Anay Schuler MD [facility] 12-12-2024 History of Presen t illness [...] PATIENT PRESENTS WITH AN IMPLANTABLE OR ATTACHED LEATHER SOFTENER: No RADIOLOGY DEPARTMENT: General X-ray: Exam(s) Completed: Chest X-Ray PERIPHERAL IV DATA: Not applicable SIGNED BY: ANEL Pittman) December 12, 2024 3:07 PM documented in this encounter [facility] 12-12-2024 Note HNO ID: [id number] Author: SIMONE PARKINSON RT(R) Service: Radiology Author Type: Technologist Type: [...] PATIENT PRESENTS WITH AN IMPLANTABLE OR ATTACHED LEATHER SOFTENER: No RADIOLOGY DEPARTMENT: General X-ray: Exam(s) Completed: Chest X-Ray PERIPHERAL IV DATA: Not applicable SIGNED BY: RT Zain(R) December 12, 2024 3:07 PM [facility] 12-12-2024 Instructions Silvio Drake APRN.CNP - 12/12/2024 2:04 PM EDT - Start [...] the clinic promptly. documented in this encounter [facility] 12-12-2024 Note HNO ID: [id number] Author: SILVIO DRAKE APRN.CNP Service: ? Author Type: Nurse Practitioner Type: Progress Notes Filed: 12/14/2024 08:49 Note Text: CC: Patient presents with: Head Congestion: Head congestion, productive cough 5 days HPI Reinier Elizabeth is a 89 year old female who presents today for sinus concerns. Recording using incuBET software for draft documentation of the visit was discussed with the patient/authorized business office representative; all questions welcomed and answered. Patient/authorized business office representative agreed to proceed Cough and Congestion: [...] symptoms. - Using Tussin cough syrup from [employer], labeled safe for hypertension and diabetes. - [...] 2 (age, bleeding) At risk for stroke [id number] = 4 (HTN, age2, female gender) Benign [...] - May. right eye left eye - [facility] . Dr Gao REPAIR FIRST ABDOMINAL [...] SUBCUTANEOUS) Inject subcutaneously once every 6 months. ana (more content not included)... [facility] 12-12-2024 History of Presen t illness Narrative CC: Patient presents with: Head Congestion: Head congestion, productive cough 5 days HPI Reinier Elizabeth is a 89 year old female who presents today for sinus concerns. Recording using incuBET software for draft documentation of the visit was discussed with the patient/authorized business office representative; all questions welcomed and answered. Patient/authorized business office representative agreed to proceed Cough and Congestion: [...] symptoms. - Using Tussin cough syrup from [employer], labeled safe for hypertension and diabetes. - [...] 2 (age, bleeding) At risk for stroke [id number] = 4 (HTN, age2, female gender) Benign [...] Glaucoma - right eye left eye - [facility] . Dr Gao REPAIR FIRST ABDOMINAL [...] IF UNABLE, PLEASE REFER TO [facility] AT [facility]. DX: EDEMA latanoprost (XALATAN) 0.005 % [...] Tdap) due on 06/07/2023 Covid-19 Vaccine( - 2023- season) due on [...] medications and allergies. - Prescriptions sent to [facility]. - Advised use of probiotics or [...] Silvio Drake APRN.CNP documented in this encounter [facility] 12-02-2024 Note HNO ID: [id number] Author: DACIA PITT RN Service: ? Author [...] Pitt RN December 02, 2024 10:27 AM [facility] 12-02-2024 History of Presen t illness [...] 2024 10:27 AM documented in this encounter [facility] 12-02-2024 Note Patient Outreach ([facility]) REINIER ELIZABETH ([id number]) 1935 F NFR Date Time Provider Department 12/02/24 DAC[facility] During your visit today, we recorded the [...] IF UNABLE, PLEASE REFER TO [facility]. DX: EDEMA - latanoprost (XALATAN) 0.005 % [...] 08/06/2016 Internal hemorrhoids without mention of complic* 02/0 (more content not included)... [facility] 11-30-2024 Telephone encounter Note Call placed to Yolette and verbal order given for an additional skilled nurse visit. Brianne Toribio RN [facility] 11-30-2024 Miscellaneous Notes Call placed to Yolette and verbal order given for an additional skilled nurse visit. Brianne Toribio RN Agree for one more visit RegardsAnay MD Patient was seen today by Yolette DENNISON with [facility] following ER visit. Yolette asking for one more visit next week to review medication changes and discharge from SN services. Call back number is [phone]. Brianne Toribio RN documented in this encounter [facility] 2024 Telephone encounter Note Agree for one more visit RegardsAnay MD [facility] 2024 Telephone encounter Note Patient was seen today by Yolette DENNISON with [facility] following ER visit. Yolette asking for one more visit next week to review medication changes and discharge from SN services. Call back number is [phone]. Brianne Toribio RN [facility] 2024 Telephone encounter Note Prescription Refill [...] on empty stomach. For Thyroid Renea Darcie [facility] 2024 9:05 AM [facility] 2024 Miscellaneous Notes Prescription Refill Information [...] on empty stomach. For Thyroid Renea Darcie [facility] 2024 9:05 AM documented in this encounter [facility] 11-28-2024 Note HNO ID: [id number] Author: ANAY SCHULER MD Service: ? Author [...] unspecified type (D6 (more content not included)... [facility] 11-28-2024 History of Presen t illness [...] excuse any unintended typographical errors. Recording using incuBET software for draft documentation of the visit was discussed with the patient/authorized business office representative; all questions welcomed and answered. Patient/authorized business office representative agreed to proceed Anay Schuler MD Pt seen by Cardiology on 11/25/24. [facility] ED 11/19/24: History of Present Illness Chief [...] sinus bradycardia with a rate of 48. VA interval, QRS interval, and QTc intervals were all normal. Byron was normal. There are no acute ST or T wave changes Imaging: RAD/Chest 1 View (Portable) IMPRESSION: Unremarkable exam. No acute process. Recommendation: Stop taking the metoprolol but continue the amiodarone and losartan documented in this encounter [facility] 11-28-2024 Instructions Anay Schuler MD - [...] medical attention immediately. documented in this encounter [facility] 11-28-2024 Note HNO ID: [id number] Author: ANAY SCHULER MD Service: ? Author Type: Physician Type: Progress Notes Filed: 11/28/2024 16:49 Note Text: Pt seen by Cardiology on 11/25/24. [facility] ED 11/19/24: History of Present Illness Chief [...] sinus bradycardia with a rate of 48. VA interval, QRS interval, and QTc intervals were all normal. Byron was normal. There are no acute ST or T wave changes Imaging: RAD/Chest 1 View (Portable) IMPRESSION: Unremarkable exam. No acute process. Recommendation: Stop taking the metoprolol but continue the amiodarone and losartan [facility] 11-25-2024 Note HNO ID: [id number] Author: DACIA PITT, RN Service: ? Author Type: Registered Nurse [...] Pitt RN November 25, 2024 10:14 AM [facility] 11-25-2024 History of Presen t illness [...] 2024 10:14 AM documented in this encounter [facility] 11-25-2024 Note Patient Outreach ([facility]) REINIER ELIZABETH ([id number]) 1935 F NFR Date Time Provider Department 11/25/24 DACIA PITT [facility] During your visit today, [...] IF UNABLE, PLEASE REFER TO [facility] AT [facility]. DX: EDEMA - latanoprost (XALATAN) 0.005 % ophthalmic solution 1 Drop daily at bedtime. - TRAVATAN Z 0.004 % Drop daily at bedtime. - Cholecalciferol, Vitamin D3, 2,000 unit ORAL Cap Take one(1) tablet two(2) times daily. Problem List As Of Date 11/25/2024 (more content not included)... [facility] 11-23-2024 Note HNO ID: [id number] Author: FLAKITO SPENCER MA Service: ? Author Type: Economic Analyst Type: Progress Notes Filed: 11/23/2024 12:29 Note Text: POPULATION HEALTH NAVIGATION OUTREACH Action/FYI CM Pool Message Type: [facility] Krystle [facility] 11/19/24 Bradycardia,HTN We are forwarding this patient to Network Navigation to schedule a sooner [facility] 11/19/24 PCP follow-up appointment. Care Gaps [...] / pended orders: ER Follow-up 11/28/2024 in [facility] with ANAY SCHULER - 11/19/24 [facility] Follow Up - ED Utilization 01/03/2025 in [facility] with ANAY SCHULER - 2 Month F/U Navigation Signature: Flakito Spencer MA November 23, 2024 12:08 PM [facility] 11-23-2024 History of Presen t illness Narrative POPULATION HEALTH NAVIGATION OUTREACH Action/FYI CM Pool Message Type: [facility] ED 11/19/24 Bradycardia,HTN We are forwarding this patient to Network Navigation to schedule a sooner [facility] 11/19/24 PCP follow-up appointment. Care Gaps [...] / pended orders: ER Follow-up 11/28/2024 in [facility] with ANAY SCHULER - 11/19/24 [facility] Follow Up - ED Utilization 01/03/2025 in [facility] with ANAY SCHULER - 2 Month F/U Navigation Signature: Flakito Spencer MA November 23, 2024 12:08 PM Summary: Chart review review per request of payor [facility] KRYSTLE RN Patient identified by name and date of . Reason for review or outreach: Chart Review Krystle Priority Emergency Department Utilization REQUESTED ACTION/FYI: Please see ED Utilization summary below A follow-up appointment is noted to be scheduled on 01/03/25. We are forwarding this patient to Network Navigation to schedule a sooner [facility] 11/19/24 PCP follow-up appointment. Thank you Exclusion Criteria Incorrect attribution Does not meet exclusion criteria Utilization in past 6 months: # Occurrences Date Last Occurrence Hospital Admission 3-OON 10/30/24 Hospital Observation 0 N/A ED 2-OON 11/19/24 SNF / Acute Rehab / LTAC 0 N/A ED DIAGNOSES/REASON(S) FOR ED USE: [facility] 11/19/24 Bradycardia,HTN OTHER FINDINGS/SUMMARY: Difficult to find discharge summary information in Care Everywhere Patient Attributed To: Incorrect attribution QAE Payer: Adama MELISSA Action Taken: Referrals/Routed: Population Health Navigation: Appointment. Router to [facility] [[id number]] Payor attribution list updated with changed PCP information Contact made with patient: No, Chart review only. Signature: Laly MATTHEWS,RN,[facility] Delivery Room Supervisor Management Contract RN [phone] documented in this encounter [facility] 11-23-2024 Note HNO ID: [id number] Author: LALY LONG RN Service: ? Author [...] to Network Navigation to schedule a sooner [facility] 11/19/24 PCP follow-up appointment. Thank you Exclusion Criteria Incorrect attribution Does not meet exclusion criteria Utilization in past 6 months: # Occurrences Date Last Occurrence Hospital Admission 3-OON 10/30/24 Hospital Observation 0 N/A ED 2-OON 11/19/24 SNF / Acute Rehab / LTAC 0 N/A ED DIAGNOSES/REASON(S) FOR ED USE: [facility] 11/19/24 Bradycardia,HTN OTHER FINDINGS/SUMMARY: Difficult to find discharge summary information in Care Everywhere Patient Attributed To: Incorrect attribution QAE Payer: Adama MELISSA Action Taken: Referrals/Routed: Population Health Navigation: Appointment. Router to [facility] [[id number]] Payor attribution list updated with changed PCP information Contact made with patient: No, Chart review only. Signature: Laly Long MSN,RN,[facility] Delivery Room Supervisor Management Contract RN [phone] [facility] 11-23-2024 Note Patient Outreach ([facility]) REINIER ELIZABETH ([id number]) 1935 F NFR Date Time Provider Department 11/23/24 LALY LONGAntonio During your visit today, we recorded the following information about you: Laly Long RN 11/23/2024 9:06 AM Signed [facility] KRYSTLE RN Patient identified by name and date of . Reason for review or outreach: Chart Review Krystle Priority Emergency Department Utilization REQUESTED ACTION/FYI: Please see ED Utilization summary below A follow-up appointment is noted to be scheduled on 01/03/25. We are forwarding this patient to Network Navigation to schedule a sooner [facility] 11/19/24 PCP follow-up appointment. Thank you Exclusion Criteria Incorrect attribution Does not meet exclusion criteria Utilization in past 6 months: # Occurrences Date Last Occurrence Hospital Admission 3-OON 10/30/24 Hospital Observation 0 N/A ED 2-OON 11/19/24 SNF / Acute Rehab / LTAC 0 N/A ED DIAGNOSES/REASON(S) FOR ED USE: [facility] 11/19/24 Bradycardia,HTN OTHER FINDINGS/SUMMARY: Difficult to find discharge summary information in Care Everywhere Patient Attributed To: Incorrect attribution QAE Payer: Adama MELISSA Action Taken: Referrals/Routed: Population Health Navigation: Appointment. Router to [facility] [[id number]] Payor attribution list updated with changed PCP information Contact made with patient: No, Chart review only. Signature: Laly Long MSN,RN,[facility] Delivery Room Supervisor Management Contract RN [phone] Flakito Spencer MA 11/23/2024 12:29 PM Signed POPULATION HEALTH NAVIGATION OUTREACH Action/FYI CM Pool Message Type: [facility] Krystle [facility] 11/19/24 Bradycardia,HTN We are forwarding this patient to Network Navigation to schedule a sooner [facility] 11/19/24 PCP follow-up appointment. Care Gaps Due: [...] / pended orders: ER Follow-up 11/28/2024 in [facility] with ANAY SCHULER - 11/19/24 [facility] Follow Up - [facility] [place] with ANAY SCHULER - 2 Month F/U [...] MA - Fully Assessed Reason for Visit: ACM KRYSTLE RN [4890] Cmt: Chart review review per request of [...] eye twice daily. (more content not included)... [facility] 11-18-2024 Note HNO ID: [id number] Author: DACIA PITT RN Service: ? Author [...] up visit next week with cardiology at [facility]. Reviewed upcoming appts with patient. Contact: Contact [...] Pitt RN November 18, 2024 2:38 PM [facility] 11-18-2024 Note Patient Outreach ([facility]) REINIER ELIZABETH ([id number]) 1935 F NFR Date Time Provider Department 11/18/24 DACIA PITT AMBG During your visit today, we recorded the [...] up visit next week with cardiology at [facility]. Reviewed upcoming appts with patient. Contact: Contact [...] IF UNABLE, PLEASE REFER TO BALA AT [facility]. DX: EDEMA - latanoprost (XALATAN) 0.005 % ophthalmic solution 1 Drop daily at bedtime. - TRAVATAN Z 0.004 % Drop daily at bedtime. - Cholecalciferol, Vitamin D3, 2,000 unit ORAL Cap Take one(1) tablet two(2) times daily. Problem List As Of Date 11/18/2024 Noted Resolved Unspecified osteoporosis [M81.0] 06/10/2010 HYPERLIPIDEMIA NEC/NOS [E78.5] 09/25/2015 Essential hypertens (more content not included)... [facility] 11-14-2024 Note HNO ID: [id number] Author: ANAY SCHULER MD Service: ? Author Type: Physician Type: Progress Notes Filed: 11/14/2024 18:49 Note Text: Reason for Visit Follow up KENDY Marinelli is a 88-year-old female with a history of atrial fibrillation, presenting for follow-up. Reinier was recently seen by the [facility] on November 04. She is [...] - Monitor heart rate closely; follow-up EKG khloe (more content not included)... [facility] 11-14-2024 History of Presen t illness Narrative Reason for Visit Follow up HPI Reinier is a 88-year-old female with a history of atrial fibrillation, presenting for follow-up. Reinier was recently seen by the [facility] on November 04. She is [...] report any persistent or worsening symptoms. 5. shelter current use of diuretic (Z79.899) Currently on Lasix with recent adjustments to dosing regimen to prevent dehydration and exacerbation of AFib. - Continue Lasix 20 mg PRN based on fluid retention and weight monitoring. - Monitor for signs of dehydration and adjust dosing as needed. 6. shelter (current) use of anticoagulants (Z79.01) Continued use of anticoagulant therapy as part of AFib management. - Continue current anticoagulant therapy. - Monitor for signs of bleeding or adverse effects. Voice recognition software was used to compose this office note. Please excuse any unintended typographical errors. Recording using ambient AI software for draft documentation of the visit was discussed with the patient/authorized business office representative; all questions welcomed and answered. Patient/authorized business office representative agreed to proceed Anay Schuler MD documented in this encounter [facility] 11-14-2024 Instructions Anay Schuler MD - 11/14/2024 1:58 PM EDT We discussed your heart health and current medications: - Start taking Metoprolol 25 mg twice daily to help lower your heart rate. This prescription has been sent to [facility]. 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 - You have a follow-up appointment with Nurse Practitioner Ning Spencer on November 25 at 2:00 PM. Please keep this appointment. Please continue monitoring your symptoms closely and let us know if you have any concerns or if your condition changes. documented in this encounter [facility] 11-14-2024 Telephone encounter Note Patient's daughter calls back and states that patient can come in early for appointment. Patient will be in 12:30/1. Yolette Pérez RN [facility] 11-14-2024 Miscellaneous Notes Patient's daughter calls back and states that patient can come in early for appointment. Patient will be in 12:30/1. Yolette Pérez RN TC to patient to inquire is patient willing to come in sooner? (1230, 1?) If agreeable just leave original appt at 340 time. Unable to reach patient. Left VM to return call to office. Yany Nieto MA documented in this encounter [facility] 11-14-2024 Telephone encounter Note TC to patient to inquire is patient willing to come in sooner? (1230, 1?) If agreeable just leave original appt at 340 time. Unable to reach patient. Left VM to return call to office. Yany Nieto MA [facility] 11-11-2024 Evaluation note Diagnosis Onset Date [...] tract infection acute A ugust 2024 1:23pm [facility] Work Phone: 1(230) 249-910205-16-2025 NoteHNO ID: [id number] Author: DACIA PITT, RN Service: ? Author Type: Registered Nurse Type: Progress Notes Filed: 11/11/2024 09:53 Note Text: Transitional Care Management (TCM) Follow-Up Note PCP Update / Actionable Items N/A - No specialty updates needed Patient Source: In-Network Discharge Follow-up outreach: TCM enrolled patient Outreach Summary: HR is 120-130 during PCC call. Patient has an appt with Dr. Bosch's office Cardiology in [place] today. Daughter explains that patient's HR does [...] Dacia Pitt RN November 11, 2024 9:40 [facility]05-16-2025 History of Present illness Narrative* Dacia Pitt RN - 11/11/2024 9:38 AM EDT Transitional Care Management (TCM) Follow-Up Note PCP Update / Actionable Items N/A - No specialty updates needed Patient Source: In-Network Discharge Follow-up outreach: TCM enrolled patient Outreach Summary: HR is 120-130 during PCC call. Patient has an appt with Dr. Bosch's office Cardiology in [place] today. Daughter explains that patient's HR does [...] 11, 2024 9:40 AM [facility] NotePatient Outreach ([facility]) REINIER ELIZABETH ([id number]) 1935 F NFR Date Time Provider Department 11/11/24 DACIA PITT During your visit today, we [...] appt with Dr. Bosch's office Cardiology in [place] today. Daughter explains that patient's HR does [...] Date Reviewed: 10/21/2024 Reviewed by: Erika Kwan APRN.INJECTOR ASSEMBLER - Fully Assessed Reason for Visit: Transition [...] IF UNABLE, PLEASE REFER TO BALA AT [facility]. DX: EDEMA - latanoprost (XALATAN) 0.005 % ophthalmic solution 1 Drop daily at bedtime. - TRAVATAN Z 0.004 % Drop daily at bedtime. - Cholecalciferol, Vitamin D3, 2,000 unit ORAL Cap Take one(1) tablet two(2) times daily. Problem List As Of Date 11/11/2024 Noted Resolved Unspecified osteoporosis [M81.0] 06/10/2010 HYPERLIPIDEMIA NEC/NOS [E78.5] 09/25/2015 Essential hypertension [I10] OVERWEIGHT [E66.9 (more content not included)...[facility] 11-08-2024 Telephone encounter Note* Telephone Encounter - Anay Schuler MD - 11/08/2024 5:01 PM EDT Agree with follow up Regards, Anay Schuler MD [facility]05-13-2025 Miscellaneous Notes* Telephone Encounter - Anay Schuler MD - 11/08/2024 5:01 PM EDT Agree with follow up Regards, Anay Schuler MD * Telephone Encounter - Abimbola Abbott LPN - 11/08/2024 1:29 PM EDT Harjinder from [facility] calling with PT plan of care, 2 visits weekly for 3 weeks working on functional mobility. Patient BP was 187/78 being monitored by Outsole Molder. No need for return call. [facility] Telephone encounter Note * Telephone Encounter - Abimbola Abbott LPN - 11/08/2024 1:29 PM EDT Harjinder from [facility] calling with PT plan of care, 2 visits weekly for 3 weeks working on functional mobility. Patient BP was 187/78 being monitored by Outsole Molder. No need for return call. [facility]05-12-2025 Telephone encounter Note* Telephone Encounter - Brianne Toribio RN - 11/07/2024 11:33 AM EDT Allyson DENNISON calling from [facility] to report plan of care for patient and SN will visit patient 2 times a week for two week and 1 times a week for two weeks. SN will work with patient on medication management and education on A-Fib, HTN, and HF. Brianne Toribio RN [facility]05-12-2025 Miscellaneous Notes* Telephone Encounter - Brianne Toribio RN - 11/07/2024 11:33 AM EDT Allyson RN calling from [facility] to report plan of care for patient and SN will visit patient 2 times a week for two week and 1 times a week for two weeks. SN will work with patient on medication management and education on A-Fib, HTN, and HF. Brianne Toribio RN [facility]25 NoteHNO ID: [id number] Author: CHACORTA ROBLEDO MA Service: ? Author Type: Economic Analyst Type: Progress Notes Filed: 11/07/2024 10:54 Note Text: POPULATION HEALTH NAVIGATION OUTREACH Action/FYI Gaps due: AWV December HCCs No med adherence. LVM/MCM. Reason for Outreach Care Gap/HCC or Scheduling Wellness Visits Care Gaps due: Medicare Annual Wellness Visit Follow-up Appointment Patient Contacted: Unable or unnecessary to reach patient: Left message [employer] message sent HCC related Navigation Signature: Chacorta Robledo MA November 07, 2024 10:51 [facility]05-12-2025 History of Present illness Narrative* Chacorta Robledo MA - 11/07/2024 10:51 AM EDT POPULATION HEALTH NAVIGATION OUTREACH Action/FYI Gaps due: AWV December HCCs No med adherence. LVM/MCM. Reason for Outreach Care Gap/HCC or Scheduling Wellness Visits Care Gaps due: Medicare Annual Wellness Visit Follow-up Appointment Patient Contacted: Unable or unnecessary to reach patient: Left message [employer] message sent HCC related Navigation Signature: Chacorta Robledo MA November 07, 2024 10:51 AM [facility] NotePatient Outreach ([facility]) REINIER ELIZABETH ([id number]) 1935 F NFR Date Time Provider Department 11/07/24 CHACORTA ROBLEDO During your visit today, we recorded the following information about you: Chacorta Robledo MA 11/07/2024 10:54 AM Signed POPULATION HEALTH NAVIGATION OUTREACH Action/FYI Gaps due: AWV FU December HCCs No med adherence. LVM/MCM. Reason for Outreach Care Gap/HCC or Scheduling Wellness Visits Care Gaps due: Medicare Annual Wellness Visit Follow-up Appointment Patient Contacted: Unable or unnecessary to reach patient: Left message [employer] message sent HCC related Navigation Signature: Chacorta [...] Date Reviewed: 10/21/2024 Reviewed by: Erika Kwan APRN.INJECTOR ASSEMBLER - Fully Assessed Reason for Visit: Population [...] IF UNABLE, PLEASE REFER TO BALA AT [facility]. DX: EDEMA - latanoprost (XALATAN) 0.005 % [...] Hypomagnesemia [E83.42] 06/11/2022 A (more content not included)...[facility]05-09-2025 NoteHNO ID: [id number] Author: DACIA PITT, JUMA Service: ? Author Type: Registered Nurse Type: Progress Notes Filed: 11/04/2024 09:19 Note Text: Transition Care Management (TCM) Initial Outreach PCP Update / Actionable Items N/A - No specialty updates needed Patient Source: Jwb-dw-Dcmozrn (OON) Discharge Outreach Summary: Patient will see her electrolysis needle operator Dr. Kingston next Thursday. Patient feels well today. No further concerns or questions. Patient understands discharge instructions. Patient will call on her own to schedule PCP hospital follow up. Patient discharged from [facility] Discharge date: 11/04/2024 Admitted for: 1. CHF exacerbation 2. A-fib with RVR 3. GERI on CKD Readmission Risk: N/A Value-Based Contract: Adama MELISSA Contact: Contact made with patient: Yes Hi, my name is Dacia Pitt RN and I am calling from the [facility] on behalf of your Primary Care [...] you? Yes Name of Home Care Agency: [facility] Start of Home Care services date: 11/05/2024 [...] I will send your request to a senior master scheduler who will contact and assist you with [...] Dacia Pitt RN November 04, 2024 9:18 [facility]05-09-2025 History of Present illness Narrative* Dacia Pitt RN - 11/04/2024 9:10 AM EDT Transition Care Management (TCM) Initial Outreach PCP Update / Actionable Items N/A - No specialty updates needed Patient Source: Lpe-sp-Lppying (OON) Discharge Outreach Summary: Patient will see her electrolysis needle operator Dr. Kingston next Thursday. Patient feels well today. No further concerns or questions. Patient understands discharge instructions. Patient will call on her own to schedule PCP hospital follow up. Patient discharged from [facility] Discharge date: 11/04/2024 Admitted for: 1. CHF exacerbation 2. A-fib with RVR 3. GERI on CKD Readmission Risk: N/A Value-Based Contract: dAama EMLISSA Contact: Contact made with patient: Yes Hi, my name is Dacia Pitt RN and I am calling from the [facility] on behalf of your Primary Care [...] you? Yes Name of Home Care Agency: [facility] Start of Home Care services date: 11/05/2024 [...] I will send your request to a senior master scheduler who will contact and assist you with [...] 04, 2024 9:18 AM documented in [facility] NotePatient Outreach ([facility]) REINIER ELIZABETH ([id number]) 1935 F NFR Date Time Provider Department 11/04/24 DACIA PITTG During your visit today, we recorded the following information about you: Dacia Pitt, RN 11/04/2024 9:19 AM Signed Transition Care Management (TCM) Initial Outreach PCP Update / Actionable Items N/A - No specialty updates needed Patient Source: Mxi-sz-Cfuddsk (OON) Discharge Outreach Summary: Patient will see her electrolysis needle operator Dr. Kingston next Thursday. Patient feels well today. No further concerns or questions. Patient understands discharge instructions. Patient will call on her own to schedule PCP hospital follow up. Patient discharged from [facility] Discharge date: 11/04/2024 Admitted for: 1. CHF exacerbation 2. A-fib with RVR 3. GERI on CKD Readmission Risk: N/A Value-Based Contract: Adama MELISSA Contact: Contact made with patient: Yes Hi, my name is Dacia Pitt RN and I am calling from the [facility] on behalf of your Primary Care [...] you? Yes Name of Home Care Agency: [facility] Start of Home Care services date: 11/05/2024 [...] I will send your request to a senior master scheduler who will contact and assist you with [...] Date Reviewed: 10/21/2024 Reviewed by: Erika Kwan APRN.CNP - Fully Assessed Prescriptions as of 11/04/2024 [...] B-12, (VITAMIN B1 (more content not included)... [facility]05-08-2025 Telephone encounter Note* Telephone Encounter - Haydee Mccauley MA - 11/03/2024 2:03 PM EDT Karen notified. [facility]05-08-2025 Miscellaneous Notes* Telephone Encounter - Haydee Mccauley MA - 11/03/2024 2:03 PM EDT Karen notified. * Telephone Encounter - Silvio Drake APRN.CNP - 11/03/2024 1:20 PM EDT Agree to follow and ok with orders. Patient also needs a hospital follow up. Thank you Silvio Drake APRN.DARSHAN * Telephone Encounter - Brianne Toribio RN - 11/03/2024 10:54 AM EDT Karen with [facility] calls to ask if provider would be willing to follow their HH orders for SN, PT, OT. Patient is discharging home today from [facility] PCU after being treated for A-fib and Renal Failure. Call back number is [phone]. Brianne Toribio RN [facility] Telephone encounter Note * Telephone Encounter - Silvio Drake APRN.CNP - 11/03/2024 1:20 PM EDT Agree to follow and ok with orders. Patient also needs a hospital follow up. Thank you Silvio Drake APRN.CNP [facility]05-08-2025 Discharge summary Author Rory Trevizo [facility] Note Date/Time November 03, 2024 11:11a [facility] Medical Records Department [address] [place] [address] Discharge Summary 11/03/24 1107 MR#: [id number] Acct: [id number] Name: REINIER ELIZABETH Rep #:[id number] : 1935 88 From: Rory Cardozo PCP: Dr. Anay Schuler MD Status:ADM I N Location: [place] [address] Providers Date of Admission: 10/30/24 Date of [...] Currently in low 90s. Discussed with the electrolysis needle operator and amiodarone drip discontinued. Metoprolol 50 mg [...] improving. Discussed with the patient's daughter and electrolysis needle operator. Plan is anticipating discharge tomorrow with follow-up in the cardiology office after 1 week to discuss the options about pacemaker. 11/03: Heart rate is 4600. BP 163/100. Discussed with electrolysis needle operator Dr. Jake Kingston. He said patient should [...] Small right pleural effusion. Cardiomegaly. Reading Location: [id number] Extremity Arterial Study 10/31/24 09:32 Interpretation Summary [...] mg/mL subcutaneous syringe (Prolia) 60 mg subcut [id number] bone health 08/20/23 rivaroxaban 15 mg tablet [...] with the patient. Patient does not need assisted and does not want to go. No [...] Prolia 60 mg/mL syringe 60 mg subcut [id number] Patient Comments: STARTS END UP SEPTEMBER. mecobalamin [...] Self Care Charges/Coding Visit Charges Inpatient E&M: 26148 Disch Hosp >30min 11/03/24 1111 <Electronically signed by Rory Trevizo MD> Cosigner Signature (if applicable): CC: Dr. Anay Schuler MD; Dr. Rory Trevizo MD~ Signed [facility] Work Phone: 1(200) 166-581005-08-2025 Discharge summary Author Rory Trevizo [facility] Note Date/Time November 03, 2024 11:07a m [facility] Medical Records Department [address] [place] [address] Instructions for Home/Discharge Instructions 11/03/24 1002 MR#: [id number] Acct: [id number] Name: REINIER ELIZABETH Rep #:[id number] : 1935 88 From: Rory Cardozo PCP: [...] Prolia 60 mg/mL syringe 60 mg subcut [id number] Patient Comments: STARTS END UP SEPTEMBER. mecobalamin [...] Staff] - In 1 Week (Follow-up with [facility]) Disposition Disposition (needs filled in before D/C Order can be placed): Home, Self Care 11/03/24 1107<Electronically signed by Rory Trevizo MD>Rory Trevizo MD CC: Dr. Anay Schuler MD; Dr. Pb Granado MD; Dr. Nirav Cain MD ~ Signed [facility] Work Phone: 1(995) 548-258205-08-2025 Progress note Author Jake Kingston [facility] Note Date/Time November 03, 2024 9:44am [facility] Medical Records Department [address] [place] [address] Progress Note - Cardiology 11/03/24 0934 MR#: [id number] Acct: [id number] Name: REINIER ELIZABETH Rep #:[id number] : 1935 88 From: Jake Kingston MD PCP: Dr. Anay Schuler MD Status:ADM I N Location: [place] [address] Subjective Subjective Patient reports she has been [...] Patient needs to be reevaluated in the [facility] office in 1 week. At [...] home environment. Charges/Coding Visit Charges Inpatient E&M: 81380 Subs Hosp L3 11/03/24 0944 <Electronically signed by Jake Kingston MD> Cosigner Signature (if applicable): CC: ~ Signed [facility] Work Phone: 1(361) 294-307705-08-2025 [facility]05-08-2025 Telephone encounter Note* Telephone Encounter - Brianne Toribio RN - 11/03/2024 10:54 AM EDT Karen with [facility] calls to ask if provider would be willing to follow their HH orders for SN, PT, OT. Patient is discharging home today from [facility] PCU after being treated for A-fib and Renal Failure. Call back number is [phone]. Brianne Toribio RN [facility]05-07-2025 Progress note Author Rory Trevizo [facility] Note Date/Time November 02, 2024 5:08pm [facility] Medical Records Department [address] [place] [address] Progress Note - Hospitalist 11/02/24 1704 MR#: [id number] Acct: [id number] Name: REINIER ELIZABETH Rep #:[id number] : 1935 88 From: Rory Cardozo PCP: Dr. Anay Schuler MD Status:ADM I N Location: [place] [address] Reason for Visit Reason for Visit: Diagnoses [...] % (Auto) 62.3, Lymph % (Auto) 23.9, Haywood % (Auto) 8.6, Eos % (Auto) 4.4, [...] Currently in low 90s. Discussed with the electrolysis needle operator and amiodarone drip discontinued. Metoprolol 50 mg [...] improving. Discussed with the patient's daughter and electrolysis needle operator. Plan is anticipating discharge tomorrow with follow-up [...] % (Auto) 62.3, Lymph % (Auto) 23.9, Haywood % (Auto) 8.6, Eos % (Auto) 4.4, [...] Small right pleural effusion. Cardiomegaly. Reading Location: [id number] Extremity Arterial Study 10/31/24 09:32 Interpretation Summary [...] Harden RCS Charges/Coding Visit Charges Inpatient E&M: 32030 Subs Hosp L2 11/02/24 5689 <Electronically signed by Rory Trevizo MD> Cosigner Signature (if applicable): CC: ~ Signed [facility] Work Phone: 1(875) 959-840005-07-2025 Progress note Author Jake Kingston [facility] Note Date/Time November 02, 2024 9:05am [facility] Medical Records Department [address] [place] [address] Progress Note - Cardiology 11/02/24 0856 MR#: [id number] Acct: [id number] Name: REINIER ELIZABETH Rep #:[id number] : 1935 88 From: Jake Kingston MD PCP: Dr. Anay Schuler MD Status:ADM I N Location: [place] [address] Subjective Subjective Patient is resting comfortably in [...] % (Auto) 62.3, Lymph % (Auto) 23.9, Haywood % (Auto) 8.6, Eos % (Auto) 4.4, [...] % (Auto) 62.3, Lymph % (Auto) 23.9, Haywood % (Auto) 8.6, Eos % (Auto) 4.4, [...] activities. It is highly likely this is business office representative of sick sinus syndrome and the [...] is concerned. Charges/Coding Visit Charges Inpatient E&M: 91683 Subs Hosp L3 11/02/24904 <Electronically signed by Jake Kingston MD> Cosigner Signature (if applicable): CC: ~ Signed [facility] Work Phone: 1(199) 321-750605-06-2025 Progress note Author Rorydharmesh Trevizo [facility] Note Date/Time November 01, 2024 4:10pm [facility] Medical Records Department [address] [place] [address] Progress Note - Hospitalist 11/01/2440 MR#: [id number] Acct: [id number] Name: REINIER ELIZABETH Rep #:[id number] : 1935 88 From: Rory Cardozo PCP: Dr. Anay Schuler MD Status:ADM I N Location: [place] [address] Reason for Visit Reason for Visit: Diagnoses [...] % (Auto) 61.2, Lymph % (Auto) 25.2, Haywood % (Auto) 9.5, Eos % (Auto) 3.5, [...] Physician: ANAY SCHULER Performed By: Karey Harden [facility] Rhythm Strip Rhythm Strip: Sinus Rhythm Rate: [...] Currently in low 90s. Discussed with the electrolysis needle operator and amiodarone drip discontinued. Metoprolol 50 mg [...] % (Auto) 61.2, Lymph % (Auto) 25.2, Haywood % (Auto) 9.5, Eos % (Auto) 3.5, [...] Small right pleural effusion. Cardiomegaly. Reading Location: [facility] Extremity Arterial Study 10/31/24 09:32 Interpretation Summary [...] Harden RCS Charges/Coding Visit Charges Inpatient E&M: 65929 Subs Hosp L2 11/01/24 1610 <Electronically signed by Rory Trevizo MD> Cosigner Signature (if applicable): CC: ~ Signed [facility] Work Phone: 1(556) 225-479305-06-2025 Progress note Author Jake Kingston [facility] Note Date/Time November 01, 2024 8:52am [facility] Medical Records Department [address] [place] [address] Progress Note - Cardiology 11/01/24 0843 MR#: [id number] Acct: [id number] Name: REINIER ELIZABETH Rep #:[id number] : 1935 88 From: Jake Kingston MD PCP: Dr. Anay Schuler MD Status:ADM I N Location: [place] [address] Subjective Subjective The patient spontaneously reverted to [...] % (Auto) 61.2, Lymph % (Auto) 25.2, Haywood % (Auto) 9.5, Eos % (Auto) 3.5, [...] % (Auto) 61.2, Lymph % (Auto) 25.2, Haywood % (Auto) 9.5, Eos % (Auto) 3.5, Baso % (Auto) 0.3, Absolute Neuts (auto) 3.8, Nucleated RBC % 0.3, Sodium 139, Potassium 4.4, Chloride 112 H, Carbon Dioxide 15.1 L, Anion Gap 12, BUN 35 H, Creatinine 2.09 H, Est GFR (MDRD) Non-Af 23 L, BUN/Creatinine Ratio 16.7, [id number] H, Calcium 9.2 Rhythm: EKG: ECHO: Stress [...] medication adjustments. Charges/Coding Visit Charges Inpatient E&M: 06002 Subs Hosp L3 11/01/2452 <Electronically signed by Jake Kingston MD> Cosigner Signature (if applicable): CC: ~ Signed [facility] Work Phone: [phone] [id number] Progress note Author Rory Trevizo [facility] Note Date/Time October 31, 2024 4:53pm [facility] Medical Records Department [address] [place] [address] Progress Note - Hospitalist 10/31/2442 MR#: [id number] Acct: [id number] Name: REINIER ELIZABETH Rep #:[id number] : 1935 88 From: Rory Cardozo PCP: Dr. Anay Schuler MD Status:ADM I N Location: [place] [address] Reason for Visit Reason for Visit: Diagnoses [...] (Auto) 72.3 H, Lymph % (Auto) 18.5 L,Haywood % (Auto) 6.7, Eos % (Auto) 1.4, [...] Sens 45 HD, [place] [address] H 10/30/24 13:24: Blood Type A POSITIVE, Antibody Screen NEGATIVE 10/30/24 14:15: Urine Color Yellow, Urine Clarity Clear, Urine pH 6.0, Ur Specific [place] 1.020, Urine Protein 30 H, Urine Glucose [...] % (Auto) 62.5, Lymph % (Auto) 24.8, Haywood % (Auto) 9.1, Eos % (Auto) 2.3, [...] Small right pleural effusion. Cardiomegaly. Reading Location: [facility] Physical Exam Narrative Patient is states she [...] Currently in low 90s. Discussed with the electrolysis needle operator and amiodarone drip discontinued. Metoprolol 50 mg [...] DVT: Xarelto Charges/Coding Visit Charges Inpatient E&M: 60587 Subs Hosp L2 10/31/24 1653 <Electronically signed by Rory Trevizo MD> Cosigner Signature (if applicable): CC: ~ Signed [facility] Work Phone: [phone]) 101-643605-05-2025 Consult note Author Jake Kingston [facility] Note Date/Time October 31, 2024 11:11a m [facility] Medical Records Department [address] [place] [address] Consultation - Cardiology 10/31/24 1052 MR#: [id number] Acct: [id number] Name: REINIER ELIZABETH Rep #:[id number] : 1935 88 From: Jake Kingston MD PCP: Dr. Anay Schuler MD Status:ADM I N Location: [place] [address] Assessment & Plan Assessment/Plan (1) Paroxysmal atrial [...] cardioversion tomorrow around 1215 hrs. in the [employer]. 4. N.p.o. after midnight except for meds. [...] be repeated to check her pericardial effusion. [facility] Medical History Hypothyroidism (acquired) Wears glasses Post-menopausal [...] denosumab 60 mg/mL subcutaneous 60 mg subcut [id number] bone health 08/20/23 04/25/24 History syringe (Prolia) [...] Applicable: No Charges/Coding Visit Charges Inpatient E&M: 58046 Init Hosp L3 Objective Data Vital Signs: Vital Signs Temp Pulse Resp BP Pulse Ox O2 Del Method 97.7 F L 96 20 H 112/82 H 97 Room Air 10/31/24 10:10/31/24 10:10/31/24 10:10/31/24 10:10/31/24 10:05 10/31/24 10:05 Oxygen Delivery Method Room [...] (Auto) 72.3 H, Lymph % (Auto) 18.5 L,Haywood % (Auto) 6.7, Eos % (Auto) 1.4, [...] Sens 45 HD, [place] [address] H 10/30/24 13:24: Blood Type A POSITIVE, Antibody Screen NEGATIVE 10/30/24 14:15: Urine Color Yellow, Urine Clarity Clear, Urine pH 6.0, Ur Specific [place] 1.020, Urine Protein 30 H, Urine Glucose [...] % (Auto) 62.5, Lymph % (Auto) 24.8, Haywood % (Auto) 9.1, Eos % (Auto) 2.3, [...] 72.3 H, Lymph % (Auto) 18.5 L, Haywood % (Auto) 6.7, Eos % (Auto) 1.4, Baso % (Auto) 0.6, Absolute Neuts (auto) 5.7, Nucleated RBC % 0.3, Sodium 137, Potassium 5.0, Chloride 109 H, Carbon Dioxide 17.5 L, Anion Gap 10, BUN 40 H, Creatinine 2.27 H, Est GFR (MDRD) Non-Af 20 L, BUN/Creatinine Ratio 17.7, [id number] H, Calcium 9.1 10/30/24 14:15: Urine Color Yellow, Urine Clarity Clear, Urine pH 6.0, Ur Specific [place] 1.020, Urine Protein 30 H, Urine Glucose [...] Neut %(Auto) 62.5, Lymph % (Auto) 24.8, Haywood % (Auto) 9.1, Eos % (Auto) 2.3, [...] Small right pleural effusion. Cardiomegaly. Reading Location: [id number] 10/31/24 1111 <Electronically signed by Jake Kingston MD> Cosigner Signature (if applicable): CC: Dr. Anay Schuler MD~ Signed [facility] Work Phone: [phone]) 411-848605-04-2025 History and physical note Author Nirav Cain [facility] Note Date/Time October 30, 2024 8:37pm [facility] Medical Records Department [address] [place] [address] H&P Exam - Hospitalist 10/30/24 1720 MR#: [id number] Acct: [id number] Name: REINIER ELIZABETH Rep #:[id number] : 1935 88 From: Nirav ellis MD PCP: Dr. Anay Schuler MD Status:ADM I N Location: [place] [address] HPI - General General Date of Admission: [...] expected given the rise in her creatinine. [facility] Medical History Hypothyroidism (acquired) Wears glasses Post-menopausal [...] denosumab 60 mg/mL subcutaneous 60 mg subcut [id number] bone health 08/20/23 04/25/24 History syringe (Prolia) [...] (Auto) 72.3 H, Lymph % (Auto) 18.5 L,Haywood % (Auto) 6.7, Eos % (Auto) 1.4, [...] Sens 45 HD, [place] [address] H 10/30/24 13:24: Blood Type A POSITIVE, Antibody Screen NEGATIVE 10/30/24 14:15: Urine Color Yellow, Urine Clarity Clear, Urine pH 6.0, Ur Specific [place] 1.020, Urine Protein 30 H, Urine Glucose [...] Small right pleural effusion. Cardiomegaly. Reading Location: [facility] Assessment & Plan Assessment/Plan (1) GERI (acute [...] with colleagues Charges/Coding Visit Charges Inpatient E&M: 58655 Init Hosp L3 10/30/242036 <Electronically signed by Nirav Cain MD> Cosigner Signature (if applicable): CC: Dr. Anay Schuler MD; Dr. Nirav Cain MD~ Signed [facility] Work Phone: [phone]) 754-772805-04-2025 Evaluation note* Diagnosis Onset Date Resolution Status Admit Date CHF (congestive heart failure) acute October 30, 2024 5:20pm Paroxysmal atrial fibrillation acute October 30, 2024 5:20pm Essential hypertension chronic Ma y 4th, 2025 5:20pm GERI (acute kidney injury) resolved October [...] 09, 2025 11:29am Essential hypertension chronic Ju 2024 11:29am Mixed incontinence acute February 22, 2025 1:23pm Nocturia acute February 22, 2 025 1:23pm Overactive bladder acute February 22, 2025 1:23pm Urinary tract infection acute A ugust 2024 1:23pm [employer] Work Phone: [phone]) 136-826005-04-2025 Discharge summary Author Jose Mcgraw [facility] Note Date/Time October 30, 2024 4:55pm [facility] Medical Records Department [address] [place] [address] Emergency Department Summary 10/30/24 MR#: [id number] Acct: [id number] Name: REINIER ELIZABETH Rep #:[id number] : 1935 88 From: Jose Guzman PCP: Dr. Anay Schuler MD Status:REG E R Location: ED HPI History of Present Illness Chief Complaint: Weakness PFSH PFSH Medical History (Reviewed 10/24/24 @ 15:54 by Ning Spencer [employer]SIDE PLANT CABLE ENGINEER, OUTSIDE [employer] CABLE ENGINEER-C) Hypothyroidism (acquired) Wears glasses Post-menopausal Thyroid disease [...] denosumab 60 mg/mL subcutaneous 60 mg subcut [id number] bone health 08/20/23 04/25/24 History syringe (Prolia) [...] 88 Pulse Ox 98 Oxygen Delivery Method MDM MDM MDM Narrative Medical decision making narrative: HISTORY OF [...] reviewed, Vital signs reviewed Constitutional: please see [facility] HENT: MMM Eyes: Pupils equal round and [...] MEDICAL DECISION MAKING: Chief Complaint: please see [facility] External records reviewed: Reviewed prior cardiovascular testing: Reviewed echocardiogram from September 2024 showed ejection fraction of 60% Recent ED visit and hospitalization for A-fib with RVR. Factors affecting care:As per [facility] Social determinants of health: none History obtained from others: none [] Consults: 1. Cardiology (Dr. Granado) discussed the case. Recommended admission for diuresis, rate control and telemetry monitoring. 2. Internal medicine (Dr. Cain) [facility] Narrative: The patient was initially tachycardic with [...] to PCU This note was generated with [employer]ovo dictation software. It may contain incorrect words, [...] 72.3 H Lymph % (Auto) 18.5 L Haywood % (Auto) 6.7 Eos % (Auto) 1.4 [...] Sens 2 [place] [address] H Urine Color Yellow Urine Clarity Clear Urine pH 6.0 Ur Specific [place] 1.020 Urine Protein 30 H Urine Glucose [...] (Auto) Neut % (Auto) Lymph % (Auto) Haywood % (Auto) Eos % (Auto) Baso % (Auto) Absolute Neuts (auto) Absolute Lymphs (auto) Nucleated RBC % Sodium Potassium Chloride Carbon Dioxide Anion Gap BUN Creatinine Estim Creat Clear Calc Est GFR (MDRD) Non-Af BUN/Creatinine Ratio Glucose Calcium Troponin T High Sens Troponin T Hi Sens 2 Hr 50 H NT pro BNP II Urine Color Urine Clarity Urine pH Ur Specific [place] Urine Protein Urine Glucose (UA) Urine Ketones Urine Occult Blood Urine Nitrite Urine Bilirubin Urine Urobilinogen Ur Leukocyte Esterase Urine RBC Urine WBC Ur Squamous Epith Cells Urine Bacteria Hyaline Casts Urine Mucus U Random Total Protein Blood Type Antibody Screen Radiography Diagnostic Testing: Clinical Impression(s) from Imaging Studies Chest X-Ray 10/30/24 12:53 IMPRESSION: Small right pleural effusion. Cardiomegaly. Reading Location: [facility] Discharge Plan Triage Chief Complaint: Weakness ED Provider: Jose Mcgraw Dx/Rx/DC Orders Prescriptions: No Action levothyroxine 25 mcg tablet 25 mcg PO DAILY brimonidine 0.15 % drops 1 drp ophthalmic (eye) BID Rx Instructions: right eye omeprazole 40 mg capsule,delayed release(DR/EC) 20 mg PO DAILY Prolia 60 mg/mL syringe 60 mg subcut [id number] Patient Comments: STARTS END UP SEPTEMBER. mecobalamin [...] MD [Primary Care Provider] - Print Language: Romanian What to do if you have Problems For any increased pain, shortness of breath, bleeding, nausea or vomiting, chestpain, or any unexpected problems, contact your Primary Care Provider. Call [facility] ([phone]) or report to the closest Emergency Room. Call 911 if necessary. 10/30/241654 <Electronically signed by Jose Mcgraw DO> Cosigner Signature (if applicable): CC: Dr. Anay Schuler MD ~ Signed [facility] Work Phone: 1(132) 873-123205-04-2025 Radiology Diagnostic study [facility]05-02-2025 NoteHNO ID: [id number] Author: DACIA PITT RN Service: ? Author [...] heart monitor, scheduled to be returned to [facility] today at 1:15 PM. Plan: Patient is followed by [facility]. Will call their office this morning [...] indicated symptoms are worse. Based on licensed manager of selection and assessment, the following disposition is advised: NO ACTION [...] Dacia Pitt RN October 28, 2024 10:17 [facility]05-02-2025 History of Present illness Narrative* Dacia Pitt, RN - 10/28/2024 10:09 AM EDT Transitional [...] heart monitor, scheduled to be returned to [facility] today at1:15 PM. Plan: Patient is followed by [facility]. Will call their office this morning [...] indicated symptoms are worse. Based on licensed manager of selection and assessment, the following disposition isadvised: NO ACTION REQUIRED. [...] Pitt RN October 28, 2024 10:17 AM documented in [facility]25 NotePatient Outreach ([facility]) REINIER ELIZABETH ([id number]) 1935 F NFR Date Time Provider Department 10/28/24 DACIA PITT During your visit today, we recorded the following information about you: Dacia Pitt RN 10/28/2024 10:30 AM Signed Transitional Care [...] heart monitor, scheduled to be returned to [facility] today at 1:15 PM. Plan: Patient is followed by [facility]. Will call their office this morning [...] indicated symptoms are worse. Based on licensed manager of selection and assessment, the following disposition is advised: NO ACTION [...] Date Reviewed: 10/21/2024 Reviewed by: Erika Kwan APRN.INJECTOR ASSEMBLER - Fully Assessed Prescriptions as of 10/28/2024 [...] with meals. - po (more content not included)...[facility]04-27-2025 NoteHNO ID: [id number] Author: ROSALBA IRBY RN Service: ? Author Type: Registered Nurse Type: Progress Notes Filed: 10/23/2024 09:05 Note Text: Transitional Care Management (TCM) Escalation Outreach / Follow-up PCP Update / Actionable Items N/A - No specialty updates needed Patient Source: Yri-jc-Kwrmshh (OON) Discharge Outreach Summary: message left for patient x2 Patient discharged from N/A Discharge date: 10/13/24 Admitted for: Proxysmal A fib CHF, CKD Readmission Risk: N/A Value-Based Contract: Adama MELISSA Contact made with patient: No No answer. Message left x2 days. Outreach Outcome: Enrolled in TCM: Continue 30-day TCM Outreach [facility] Utilized: N/A Rosalba Irby RN October 23, 2024 9:04 [facility]04-27-2025 NotePatient Outreach ([facility]) GLENNREINIER Mikayla ([id number]) 1935 F NFR Date Time Provider Department 10/23/24 ROSALBA IRBY During your visit today, we recorded the following information about you: Rosalba Irby RN 10/23/2024 9:05 AM Signed Transitional Care Management (TCM) Escalation Outreach / Follow-up PCP Update / Actionable Items N/A - No specialty updates needed Patient Source: Krn-pl-Eglczsx (OON) Discharge Outreach Summary: message left for [...] (NITROFURANTOIN MONOHYD/*10/08/2024 5 - Intolerance Comments: N/V, tierra, diarrhea AMANTADINE 05/09/2005 2 - Rash CAPOTEN (CAPTOPRIL) 05/09/2005 2 - Rash CEPHALEXIN 05/09/2005 2 - Rash ERYTHROMYCIN 05/09/2005 2 - Rash HCTZ (THIAZIDES) 03/26/2015 14 - Other: See Comments Comments: leg cramps IVP DYE (IODINE) 05/12/2005 2 - Rash NORVASC (AMLODIPINE BESYLATE) 08/27/2017 7 - Swelling Date Reviewed: 10/21/2024 Reviewed by: Erika Kwan APRN.INJECTOR ASSEMBLER - Fully Assessed Prescriptions as of 10/23/2024 [...] IF UNABLE, PLEASE REFER TO [facility]. DX: EDEMA - latanoprost (XALATAN) 0.005 % [...] (HCC) [I48.21] 04/28/2022 Gastroint (more content not included)...[facility]04-25-2025 NoteHNO ID: [id number] Author: ERIKA KWAN APRN.DARSHAN Service: ? Author Type: Nurse Practitioner Type: Progress Notes Filed: 10/21/2024 14:02 Note Text: Virtualist [facility] Note I have communicated my name and active licensure. The patient's identity and physical location were verified at the time of this visit. Either the patient or their legal business office representative has been informed of the risks and benefits of -- and alternatives to -- treatment through a remote evaluation and consents to proceed with the evaluation remotely. Subjective/Objective: Discharged form [facility] 10 days ago after being admitted and [...] patient They have not heard back from [employer] continues to spend more time in [...] in as Primary Virtualist, Secondary Virtualist, or [facility] Telehealth provider: Primary SIGNATURE: Erika Washington APRN.CNP PATIENT NAME: Reinier Elizabeth DATE: October 21, 2024 [facility]04-25-2025 NoteHNO ID: [id number] Author: DACIA PITT RN Service: ? Author [...] Update / Actionable Items Daughter called the [facility] approximately 20 minutes ago. Reported BPs: 93/81 with HR 122, and 89/74 with HR 127 at time of call. During the call, HR briefly dropped into the 60s, then returned to the 120s. Patient has had ongoing nausea and fatigue for the past week and was seen by [employer] CABLE ENGINEER Older on 09/16/24. Daughter is concerned about continued use of blood pressure medication given the heart rate fluctuations and persistent symptoms. She would like to discuss stopping Lasix. Virtualist Name of Virtualist: Erika Washington NP Time paged: 10:39am Preferred contact number: [phone] Patient escalation symptom(s)/nursing assessment: Hypotension and Afib Patient Source: Aen-zm-Masdlaa (OON) Discharge Outreach Summary: Daughter called the [facility] approximately 20 minutes ago. Reported BPs: 93/81 with HR 122, and 89/74 with HR 127 at time of call. During the call, HR briefly dropped into the 60s, then returned to the 120s. Patient has had ongoing nausea and fatigue for the past week and was seen by [employer] CABLE ENGINEER Older on 09/16/24. She is eating well [...] and patient's preferred method of contact (telephone, [employer], [employer]), your name, your contact number. Informed patient [...] Dacia Pitt RN October 21, 2024 10:43 [facility]04-25-2025 NotePatient Outreach ([facility]) REINIER ELIZABETH ([id number]) 1935 F NFR Date Time Provider Department 10/21/24 DACIA PITTG During your visit today, we recorded the following information about you: Dacia Pitt, RN 10/21/2024 10:44 AM Signed Called the [...] Update / Actionable Items Daughter called the [facility] approximately 20 minutes ago. Reported BPs: 93/81 with HR 122, and 89/74 with HR 127 at time of call. During the call, HR briefly dropped into the 60s, then returned to the 120s. Patient has had ongoing nausea and fatigue for the past week and was seen by [employer]INEER Older on 09/16/24. Daughter is concerned about continued use of blood pressure medication given the heart rate fluctuations and persistent symptoms. She would like to discuss stopping Lasix. Virtualist Name of Virtualist: Erika Washington NP Time paged: 10:39am Preferred contact number: [phone] Patient escalation symptom(s)/nursing assessment: Hypotension and Afib Patient Source: Ret-nt-Vivbtjf (OON) Discharge Outreach Summary: Daughter called the [facility] approximately 20 minutes ago. Reported BPs: 93/81 with HR 122, and 89/74 with HR 127 at time of call. During the call, HR briefly dropped into the 60s, then returned to the 120s. Patient has had ongoing nausea and fatigue for the past week and was seen by [employer] C[employer] ENGINEER Older on 09/16/24. She is eating well [...] indicated [place] [address] and indicate 'TCM patient', MRN, Patient Name, Patient Concern, and patient's preferred method of contact (telephone, FaceTime, [employer]), your name, your contact number. Informed patient [...] Take 1 tablet by (more content not included)...[facility] 10-17-2024 Instructions* Patient Instructions* Silvio Drake APRN.CNP - 10/17/2024 2:25 PM EDT Your cardiology [...] us if these occur. documented in this encounterChillicothe Hospital04-21-2025 NoteHNO ID: [id number] Author: SILVIO DRAKE APRN.CNP Service: ? Author Type: Nurse Practitioner Type: Progress Notes Filed: 10/17/2024 15:13 Note Text: CC: Patient presents with: Recheck: Hosp follow up Afib HPI Reinier Elizabeth is a 88 year old female who presents today for follow up on hospitalization for a-fib. Was admitted to to [facility] recently for a-fib with RVR and was discharged on 10/13. Recording using incu[employer]ET software for draft documentation of the visit was discussed with the patient/authorized business office representative; all questions welcomed and answered. Patient/authorized business office representative agreed to proceed A-fib with RVR: - Recent ER visit and hospital admission with HR of 136 bpm. - Experienced a burning sensation in the chest during the night, which subsided around 04:00. - Noticed tachycardia upon waking and sought medical attention. - Currently under the care of [facility]; next appointment scheduled for November [...] 2 (age, bleeding) At risk for stroke [id number] = 4 (HTN, age2, female gender) Benign [...] Glaucoma - right eye left eye - [facility] . Dr Gao REPAIR FIRST ABDOMINAL [...] 1 tablet by mouth (more content not included)...[facility]04-21-2025 History of Present illness Narrative* Silvio Drake DAVID.INJECTOR ASSEMBLER - 10/17/2024 2:24 PM EDT CC: Patient presents with: Recheck: Hosp follow up Afib HPI Reinier Elizabeth is a 88 year old female who presents today for follow up on hospitalization for a-fib. Was admitted to to [facility] recently for a- fib with RVR and was discharged on 10/13. Recording using [employer] software for draft documentation of the visit was discussed with the patient/authorized business office representative; all questions welcomed and answered. Patient/authorized business office representative agreed to proceed A-fib with RVR: - Recent ER visit and hospital admission with HR of 136 bpm. - Experienced a burning sensation in the chest during the night, which subsided around 04:00. - Noticed tachycardia upon waking and sought medical attention. - Currently under the care of [facility]; next appointment scheduled for November [...] 2 (age, bleeding) At risk for stroke [id number] = 4 (HTN, age2, female gender) Benign [...] Glaucoma - right eye left eye - [facility] . Dr Gao REPAIR FIRST ABDOMINAL [...] IF UNABLE, PLEASE REFER TO [facility]. DX: EDEMA latanoprost (XALATAN) 0.005 % [...] 06/07/2023 Influenza Vaccine(1) due on 02/28/2024 Covid-19 Vaccine(4 - 2023- season) due on 02/28/2024 Advance Directive Discussion due on 06/29/2024 Bone Density Screening due on 01/12/2025 Diabetes Screening due on 09/13/2027 Pneumococcal Vaccine: 50+ Completed DATA REVIEWED: Outside chart from [facility] reviewed. Assessment/Plan 1. Nausea (R11.0) - no [...] or palpitations reported. - Follow-up appointment with [facility] scheduled for November 04. - Continue current medication regimen and monitor heart rate and blood pressure at home. Prescription instructions reviewed with patient as applicable. Potential red flag symptoms discussed with the patient. Reviewed appropriate action plan to take if red flag symptoms occur. Patient agreeable to treatment plan. Silvio Drake APRN.CNP documented in this encounterChillicothe Hospital04-18-2025 NoteHNO ID: [id number] Author: DACIA PITT RN Service: ? Author Type: Registered Nurse Type: Progress Notes Filed: 10/14/2024 09:34 Note Text: Transition Care Management (TCM) Initial Outreach PCP Update / Actionable Items N/A - No specialty updates needed Patient Source: Vev-ha-Otwcbju (OON) Discharge Outreach Summary: Patient is taking lasix every day for two weeks and then PCP will re eval lasix dosage at that time. Patient will monitor her HR and B/P which she had been doing prior to admission to [facility]. Patient's daughter lives next door. Patient discharged from N/A Discharge date: 10/13/24 Admitted for: Paroxysmal A fib with CHF CKD Readmission Risk: N/A Value-Based Contract: Adama MELISSA Contact: Contact made with patient: Yes Hi, my name is Dacia Pitt RN and I am calling [facility] on behalf of your Primary Care [...] I will send your request to a senior master scheduler who will contact and assist you with [...] Dacia Pitt RN October 14, 2024 9:29 [facility]04-18-2025 History of Present illness Narrative* Dacia Pitt RN - 10/14/2024 9:26 AM EDT Transition Care Management (TCM) Initial Outreach PCP Update / Actionable Items N/A - No specialty updates needed Patient Source: Ynj-xq-Ivineyh (OON) Discharge Outreach Summary: Patient is taking lasix every day for two weeks and then PCP will re eval lasix dosage at that time. Patient will monitor her HR and B/P which she had been doing prior to admission to [facility]. Patient's daughter lives next door. Patient discharged from N/A Discharge date: 10/13/24 Admitted for: Paroxysmal A fib with CHF CKD Readmission Risk: N/A Value-Based Contract: Adama MELISSA Contact: Contact made with patient: Yes Hi, my name is Dacia Pitt RN and I am calling [facility] on behalf of your Primary Care [...] I will send your request to a senior master scheduler who will contact and assist you with [...] 14, 2024 9:29 AM documented in this encounterChillicothe Hospital04-18-2025 NotePatient Outreach ([facility]) REINIER ELIZABETH ([id number]) 1935 F NFR Date Time Provider Department 10/14/24 DACIA PITT During your visit today, we recorded the following information about you: Dacia Pitt RN 10/14/2024 9:34 AM Signed Transition Care Management (TCM) Initial Outreach PCP Update / Actionable Items N/A - No specialty updates needed Patient Source: Pjp-ox-Bhdgscw (OON) Discharge Outreach Summary: Patient is taking lasix every day for two weeks and then PCP will re eval lasix dosage at that time. Patient will monitor her HR and B/P which she had been doing prior to admission to [facility]. Patient's daughter lives next door. Patient discharged from N/A Discharge date: 10/13/24 Admitted for: Paroxysmal A fib with CHF CKD Readmission Risk: N/A Value-Based Contract: Adama MELISSA Contact: Contact made with patient: Yes Hi, my name is Dacia Pitt RN and I am calling from the [facility] on behalf of your Primary Care [...] I will send your request to a senior master scheduler who will contact and assist you with [...] every 6 months. - (more content not included)...[facility]04-17-2025 [facility]04-17-2025 Discharge summary [facility] Medical Records Department [address] [place] [address] Instructions for Home/Discharge Instructions 10/13/24 1034 MR#: [id number] Acct: [id number] Name: REINIER ELIZABETH Rep #:[id number] : 1935 88 From: Nirav ellis MD [...] Prolia 60 mg/mL syringe 60 mg subcut [id number] Patient Comments: STARTS END UP SEPTEMBER. mecobalamin [...] Week Faustina Hernandez PA [Med Staff - [facility]] - Within 2 Weeks Disposition Disposition (needs filled in before D/C Order can be placed): Home, Self Care 10/13/24 Best Cain MD CC: Dr. Inocencia Long MD; Dr. Anay Schuler MD; Dr. Jake Kingston MD ~ Signed [facility]04-17-2025 Progress note Author Jake Kingston [facility] Note Date/Time October 13, 2024 8:2 4am [facility] Medical Records Department [address] [place] [address] Progress Note - Cardiology 10/13/24815 MR#: [id number] Acct: [id number] Name: REINIER ELIZABETH Rep #:[id number] : 1935 88 From: Jake Kingston MD PCP: Dr. nAay Schuler MD Status:ADM I N Location: [place] [address] Subjective Subjective The patient reports that she [...] % (Auto) 47.2, Lymph % (Auto) 33.8, Haywood % (Auto) 10.0, Eos % (Auto) 7.7 [...] % (Auto) 47.2, Lymph % (Auto) 33.8, Haywood % (Auto) 10.0, Eos % (Auto) 7.7 [...] anticoagulation. The patient should follow-up in the [facility] office in the next 2 weeks with [...] 2 weeks and be reevaluated in the [facility] office with a BMP at that visit. She was instructed that should she become lightheaded or dizzy she should hold the Lasix and call the [facility]. (3) Essential hypertension: PLAN: Historically the patient's [...] 3. The patient should follow-up in the [facility] office with one of our advanced practitioners in 2 weeks and have a basic metabolic panel evaluatedat that time. 4. From a cardiovascular standpoint the patient could be discharged to home later today. Charges/Coding Visit Charges Inpatient E&M: 04183 Subs Hosp L2 10/13/24823 <Electronically signed by Jake Kingston MD> Cosigner Signature (if applicable): CC: ~ Signed [facility] Work Phone: 1(340) 250-741004-17-2025 Progress note [facility] Medical Records Department [address] [place] [address] Progress Note - Cardiology 10/13/24815 MR#: [id number] Acct: [id number] Name: REINIER ELIZABETH Rep #:[id number] : 1935 88 From: Jake Kingston MD PCP: Dr. Anay Schuler MD Status:ADM I N Location: [place] [address] Subjective Subjective The patient reports that she [...] Neut% (Auto) 47.2, Lymph % (Auto) 33.8, Haywood % (Auto) 10.0, Eos % (Auto) 7.7 [...] 85, Cholesterol 146, VLDL Cholesterol 17, HDL Nplodeapags51, Cholesterol/HDL Ratio 3.02 10/13/24 06:18: WBC 4.7, RBC 3.19 L, Hgb 10.2 L, Hct 31.0 L, MCV 97.2, MCH 32.0,MCHC 32.9, Plt Count 192, MPV 10.2, Immature Gran % (Auto) 0.200, Neut % (Auto) 47.2, Lymph % (Auto) 33.8, Haywood % (Auto) 10.0, Eos % (Auto) 7.7 H, Baso % (Auto)1.1 H, Absolute Neuts (auto) 2.2, Nucleated RBC % 0, Mfslck057, Potassium 4.0, Chloride 111 H, Carbon Dioxide [...] Kingston Referring Physician: Anay Schuler Performed By: Asaf, Denise, RDCS, RVT Physical Exam Const alert and [...] anticoagulation. The patient should follow-up in the [facility] office in the next 2 weeks with [...] 2 weeks and be reevaluated in the [facility] office with a BMP at that visit. Shewas instructed that should she become lightheaded or dizzy she should hold the Lasix and call the [facility]. (3) Essential hypertension: PLAN: Historically the patient's [...] 3. The patient should follow-up in the [facility] office with one of our advanced practitioners in 2 weeks and have a basic metabolic panel evaluatedat that time. 4. From a cardiovascular standpoint the patient could be discharged to home later today. Charges/Coding Visit Charges Inpatient E&M: 21358 Subs Hosp L2 10/13/24 0824 Cosigner Signature (if applicable): CC: ~ Signed [facility]04-16-2025 Progress note Author Nirav Cain [facility] Note Date/Time October 12, 2024 11: 35am [facility] Medical Records Department [address] [place] [address] Progress Note - Hospitalist 10/12/241128 MR#: [id number] Acct: [id number] Name: REINIER ELIZABETH Rep #:[id number] : 1935 88 From: Nirav ellis MD PCP: Dr. Anay Schuler MD Status:ADM I N Location: [place] [address] Subjective Subjective Doing well, no issues overnight. [...] 70.8 H, Lymph % (Auto) 15.2 L, Haywood % (Auto) 9.6, Eos % (Auto) 3.7, [...] Sl. Cloudy, Urine pH 6.0, Ur Specific [place] 1.015, Urine Protein 30 H, Urine Glucose [...] % (Auto) 54.2, Lymph % (Auto) 26.7, Haywood % (Auto) 11.0 H, Eos % (Auto) [...] cardiomegaly. The lungs are clear. Reading Location: [place] [address] Rhythm Strip Rhythm Strip: A-fib Rate: 75 [...] DVT: Xarelto Charges/Coding Visit Charges Inpatient E&M: 69056 Subs Hosp L2 10/12/24 1135 <Electronically signed by Nirav Cain MD> Cosigner Signature (if applicable): CC: ~ Signed [facility] Work Phone: 1([phone]) 481-132204-16-2025 Progress note [facility] Medical Records Department [address] [place] [address] Progress Note - Hospitalist 10/12/24 1129 MR#: [id number] Acct: [id number] Name: REINIER ELIZABETH Rep #:[id number] : 1935 88 From: Nirav ellis MD PCP: Dr. Anay Schuler MD Status:ADM I N Location: [place] [address] Subjective Subjective Doing well, no issues overnight. [...] 70.8 H, Lymph % (Auto) 15.2 L, Haywood % (Auto) 9.6, Eos % (Auto) 3.7, [...] Sl. Cloudy, Urine pH 6.0, Ur Specific [place] 1.015, Urine Protein 30 H, Urine Glucose [...] Neut% (Auto) 54.2, Lymph % (Auto) 26.7, Haywood % (Auto) 11.0 H, Eos % (Auto) [...] cardiomegaly. The lungs are clear. Reading Location: [facility] Rhythm Strip Rhythm Strip: A-fib Rate: 75 [...] DVT: Xarelto Charges/Coding Visit Charges Inpatient E&M: 67359 Subs Hosp L2 10/12/24 1135 Cosigner Signature (if applicable): CC: ~ Signed [facility]04-16-2025 Progress note Author Jake Kingston [facility] Note Date/Time October 12, 2024 8:2 0am [facility] Medical Records Department [address] [place] [address] Progress Note - Cardiology 10/12/24 0811 MR#: [id number] Acct: [id number] Name: REINIER ELIZABETH Rep #:[id number] : 1935 88 From: Jake Kingston MD PCP: Dr. Anay Schuler MD Status:ADM I N Location: [place] [address] Subjective Subjective Patient reports she feels much better today. She has been out of the bed to [facility] without restrictions. Denies any lightheadedness dizziness. [...] 10/11/24 10/12/24 23:59 23:59 23:59 Intake Total 1993.2147. 345.15 / 345.15 Output Total 0 / 0 Balance 2147. 345.15 / 345.15 Lab / Micro Data Attestation: I reviewed [...] 70.8 H, Lymph % (Auto) 15.2 L, Haywood % (Auto) 9.6, Eos % (Auto) 3.7, [...] Sl. Cloudy, Urine pH 6.0, Ur Specific [place] 1.015, Urine Protein 30 H, Urine Glucose [...] % (Auto) 54.2, Lymph % (Auto) 26.7, Haywood % (Auto) 11.0 H, Eos % (Auto) [...] 70.8 H, Lymph % (Auto) 15.2 L, Haywood % (Auto) 9.6, Eos % (Auto) 3.7, [...] Sl. Cloudy, Urine pH 6.0, Ur Specific [place] 1.015, Urine Protein 30 H, Urine Glucose [...] % (Auto) 54.2, Lymph % (Auto) 26.7, Haywood % (Auto) 11.0 H, Eos % (Auto) 7.5 H, Baso % (Auto) 0.4, Absolute Neuts (auto) 2.5, Nucleated RBC % 0 Rhythm: EKG: ECHO: Stress Test: Cardiac Cath: PCI: CT Surgery: Holter monitor: EPS: PPM: CXR: Chest CT Scan: Radiography Diagnostic Testing: Radiology Impression Chest X-Ray 10/11/24 11:15 IMPRESSION: Borderline cardiomegaly. The lungs are clear. Reading Location: [facility] Physical Exam Const alert and oriented x3 [...] her echo. Charges/Coding Visit Charges Inpatient E&M: 35215 Subs Hosp L3 10/12/24 0820 <Electronically signed by Jake Kingston MD> Cosigner Signature (if applicable): CC: ~ Signed [facility] Work Phone: 1([phone]) 660-112004-16-2025 Progress note [facility] Medical Records Department [address] [place] [address] Progress Note - Cardiology 10/12/24 0811 MR#: [id number] Acct: [id number] Name: REINIER ELIZABETH Rep #:[id number] : 1935 88 From: Jake Kingston MD PCP: Dr. Anay Schuler MD Status:ADM I N Location: [place] [address] Subjective Subjective Patient reports she feels much better today. She has been out of the bed to [facility] without restrictions. Denies any lightheadedness dizziness. [...] 10/11/24 10/12/24 23:59 23:59 23:59 Intake Total 1993.2147. 345.15 / 345.15 Output Total 0 / 0 Balance 2147. 345.15 / 345.15 Lab / Micro Data Attestation: I reviewed [...] 70.8 H, Lymph % (Auto) 15.2 L, Haywood % (Auto) 9.6, Eos % (Auto) 3.7, [...] Sl. Cloudy, Urine pH 6.0, Ur Specific [place] 1.015, Urine Protein 30 H, Urine Glucose [...] Neut% (Auto) 54.2, Lymph % (Auto) 26.7, Haywood % (Auto) 11.0 H, Eos % (Auto) [...] 70.8 H, Lymph % (Auto) 15.2 L, Haywood % (Auto) 9.6, Eos % (Auto) 3.7, [...] Sl. Cloudy, Urine pH 6.0, Ur Specific [place] 1.015, Urine Protein 30 H, Urine Glucose [...] % (Auto) 54.2, Lymph % (Auto) 26.7, Haywood % (Auto) 11.0 H, Eos % (Auto) 7.5 H, Baso % (Auto) 0.4, Absolute Neuts (auto) 2.5, Nucleated RBC % 0 Rhythm: EKG: ECHO: Stress Test: Cardiac Cath: PCI: CT Surgery: Holter monitor: EPS: PPM: CXR: Chest CT Scan: Radiography Diagnostic Testing: Radiology Impression Chest X-Ray 10/11/24 11:15 IMPRESSION: Borderline cardiomegaly. The lungs are clear. Reading Location: [facility] Physical Exam Const alert and oriented x3 [...] her echo. Charges/Coding Visit Charges Inpatient E&M: 32052 [facility] Hosp 10/12/24 0820 Cosigner Signature (if applicable): CC: ~ Signed [facility]04-15-2025 Consult note Author Jake Kingston [facility] Note Date/Time October 11, 2024 5:5 7pm [facility] Medical Records Department [address] [place] [address] Consultation - Cardiology 10/11/24 1732 MR#: [id number] Acct: [id number] Name: REINIER ELIZABETH Rep #:[id number] : 1935 88 From: Jake Kingston MD PCP: Dr. Anay Schuler MD Status:ADM I N Location: [place] [address] 1 Assessment & Plan Assessment/Plan (1) Atrial fibrillation [...] patient had a remote heart catheterization in 2017 which showed normal coronary arteries. The last echocardiogram June 2023 showed an EF estimated at 60-65%with normal systolic function mild TR mild MR no pericardial effusion. There was a history of pulmonary hypertension with pulmonary artery pressures of 60 mmHg documented at some point in time in the past. [facility] Medical History Hypothyroidism (acquired) Wears glasses Post-menopausal [...] denosumab 60 mg/mL subcutaneous 60 mg subcut [id number] bone health 08/20/23 Unknown History syringe (Prolia) [...] 13% Risk Charges/Coding Visit Charges Inpatient E&M: 98578 Init Hosp L3 Objective Data Vital Signs: [...] 70.8 H, Lymph % (Auto) 15.2 L, Haywood % (Auto) 9.6, Eos % (Auto) 3.7, [...] Sl. Cloudy, Urine pH 6.0, Ur Specific [place] 1.015, Urine Protein 30 H, Urine Glucose [...] 70.8 H, Lymph % (Auto) 15.2 L, Haywood % (Auto) 9.6, Eos % (Auto) 3.7, [...] Sl. Cloudy, Urine pH 6.0, Ur Specific [place] 1.015, Urine Protein 30 H, Urine Glucose [...] cardiomegaly. The lungs are clear. Reading Location: [place] [address] 10/11/24 776 <Electronically signed by Jake Kingston MD> Cosigner Signature (if applicable): CC: Dr. Anay Schuler MD~ Signed [facility] Work Phone: 1(411) 660-752304-15-2025 Consult note [facility] Medical Records Department [address] [place] [address] Consultation - Cardiology 10/11/24 1732 MR#: [id number] Acct: [id number] Name: REINIER ELIZABETH Rep #:[id number] : 1935 88 From: Jake Kingston MD PCP: Dr. Anay Schuler MD Status:ADM I N Location: [place] [address] Assessment & Plan Assessment/Plan (1) Atrial fibrillation [...] some point in time in the past. [facility] Medical History Hypothyroidism (acquired) Wears glasses Post-menopausal [...] denosumab 60 mg/mL subcutaneous 60 mg subcut [id number] bone health 08/20/23 Unknown History syringe (Prolia) [...] 13% Risk Charges/Coding Visit Charges Inpatient E&M: 12007 Init Hosp L3 Objective Data Vital Signs: [...] 70.8 H, Lymph % (Auto) 15.2 L, Haywood % (Auto) 9.6, Eos % (Auto) 3.7, [...] Sl. Cloudy, Urine pH 6.0, Ur Specific [place] 1.015, Urine Protein 30 H, Urine Glucose [...] 70.8 H, Lymph % (Auto) 15.2 L, Haywood % (Auto) 9.6, Eos % (Auto) 3.7, [...] Sl. Cloudy, Urine pH 6.0, Ur Specific [place] 1.015, Urine Protein 30 H, Urine Glucose [...] cardiomegaly. The lungs are clear. Reading Location: [place] [address] 04/1756 Cosigner Signature (if applicable): CC: Dr. Anay Schuler MD~ Signed [facility]04-15-2025 Discharge summary Author Brigido Alejandre [facility] Note Date/Time October 11, 2024 3:4 4pm [facility] Medical Records Department [address] [place] [address] Emergency Department Summary 10/11/24 MR#: [id number] Acct: [id number] Name: REINIER ELIZABETH Rep #:[id number] : 1935 88 From: Brigido KEENE PCP: Dr. Anay Schuler MD Status:ADM I N Location: [address] <YECENIA Muller - Last Filed: 10/11/24 14:00> [...] it is making hercough. Here for evaluation. [facility] <YECENIA Muller - Last Filed: 10/11/24 14:00> [facility] Medical History Hypothyroidism (acquired) Wears glasses Post-menopausal [...] denosumab 60 mg/mL subcutaneous 60 mg subcut [id number] bone health 08/20/23 Unknown History syringe (Prolia) [...] Method Room Air Room Air Room Air [facility] <YECENIA Muller - Last Filed: 10/11/24 14:00> [facility] Lab Data Labs: Laboratory Results - last 24 hr 10/11/24 10/11/24 10/11/24 11:15 11:30 11:55 WBC 6.8 RBC 3.31 L Hgb 10.7 L Hct 31.6 L MCV 95.5 MCH 32.3 H MCHC 33.9 RDW Std Deviation 45.2 H RDW Coeff of Broderick 13.1 Plt Count 199 MPV 10.2 Immature Gran % (Auto) 0.300 Neut % (Auto) 70.8 H Lymph % (Auto) 15.2 L Haywood % (Auto) 9.6 Eos % (Auto) 3.7 [...] Sl. Cloudy Urine pH 6.0 Ur Specific [place] 1.015 Urine Protein 30 H Urine Glucose [...] cardiomegaly. The lungs are clear. Reading Location: [facility] EKG Atrial fibrillation: Attestation: I personally reviewed and interpreted this EKG as follows: Interpretation: Atrial Fibrillation Comments: Atrial fibrillation, rate of 133 bpm, QRS duration 80 ms, no acute ST elevation, no acute infarct noted. Treatment and Re-Evaluation :: Differential diagnosis includes however is not limited to: A-fib with RVR, PE, electrode abnormality, hyperthyroidism, hypothyroidism, medication noncompliance, ACS, [place] Patient is tachycardic, patient is in no [...] Chan MD - Last Filed: 10/11/24 15:44> [facility] MDM Narrative Medical decision making narrative: I [...] 70.8 H Lymph % (Auto) 15.2 L Haywood % (Auto) 9.6 Eos % (Auto) 3.7 [...] Sl. Cloudy Urine pH 6.0 Ur Specific [place] 1.015 Urine Protein 30 H Urine Glucose [...] cardiomegaly. The lungs are clear. Reading Location: [facility] Management Discussion w/another healthcare provider: Hospitalist and Sack Repairer (cardiology timmy - agrees w/ tx for now and will see on floor) <Dr. Vincent Chan MD - Last Filed: 10/11/24 15:44> Critical Care Time Critical Care Time: Yes Critical care time (excluding procedures): 30-74 minutes (34 min), Including time spent:, Discussing w/Patient &/or Family/Granulizing Machine Operator, Discussing w/Consultants, Arranging Admission or Transfer and Performing Direct Patient Care at Bedside Discharge Plan Dx/Rx/DC Orders Clinical Impression: Chest pain, Paroxysmal atrial fibrillation, Chronic kidney disease, Elevated troponin, Atrial fibrillation with RVR Disposition Disposition: Acute Care Hospital [facility] Discharge Date/Time: 10/11/24 15:31 What to do if you have Problems For any increased pain, shortness of breath, bleeding, nausea or vomiting, chest pain, or any unexpected problems, contact your Primary Care Provider. Call [facility] ([phone]) or report to the closest Emergency Room. Call 911 if necessary. 10/11/24 1400 <Electronically signed by Brigido KEENE> Cosigner Signature (if applicable): 10/11/24 1544 <Electronically signed by Vincent Chan MD> CC: Dr. Aany Schuler MD ~ Signed [facility] Work Phone: 1([phone]) 915-364604-15-2025 History and physical note Author [facility] Note Date/Time October 11, 2024 2:3 0pm [facility] Medical Records Department [address] [place] [address] H&P Exam - Hospitalist 10/11/24 1328 MR#: [id number] Acct: [id number] Name: REINIER ELIZABETH Rep #:[id number] : 1935 88 From: Inocencia Long MD [...] HLF, HTN, [facility] with onset of racing [...] additional 500 cc IV fluid normal saline. [facility] Medical History Hypothyroidism (acquired) Wears glasses Post-menopausal [...] denosumab 60 mg/mL subcutaneous 60 mg subcut [id number] bone health 08/20/23 Unknown History syringe (Prolia) [...] 70.8 H, Lymph % (Auto) 15.2 L, Haywood % (Auto) 9.6, Eos % (Auto) 3.7, [...] Sl. Cloudy, Urine pH 6.0, Ur Specific [place] 1.015, Urine Protein 30 H, Urine Glucose [...] HTN, PAF who presents to the [facility] on 10[facility]11[facility]24 with onset of [...] 16 minutes. Charges/Coding Visit Charges Inpatient E&M: 25473 Init Hosp L3 Procedures Hospitalists Procedures: 48666 Advncd Care Plan 30 Min 10/11/24 1430 <Electronically signed by Inocencia Long MD> Cosigner Signature (if applicable): CC: Dr. Inocencia Long MD; Dr. Anay Schuler MD~ Signed [facility] Work Phone: 1([phone]) 191-591804-15-2025 Evaluation note* Diagnosis Onset Date Resolution Status Admit Date Atrial fibrillation with RVR acute October 11, 2024 2:08pm CHF (congestive heart failure) acute October 11, 2024 2:08pm Elevated troponin acute September 272024 2:08pm Paroxysmal atrial fibrillation acute October 11, 2024 2:08pm Chronic kidney disease chronic Ap ril 2024 2:08pm Essential hypertension chronic Ap ril 2024 2:08pm [facility] Work Phone: [phone] 695-267904-15-2025 Evaluation note* Diagnosis Onset Date Resolution Status [...] Essential hypertension chronic Ma y 2024 5:20pm [facility] Work Phone: [phone]) [phone] Evaluation note* Diagnosis Onset Date Resolution Status [...] Essential hypertension chronic Ma y 2024 5:20pm [facility] Work Phone: [phone] 686-203904-15-2025 Evaluation note* Diagnosis Onset Date Resolution Status [...] kidney disease inactive Ma y 2024 5:20pm [facility] Work Phone: [phone]) 781-837104-15-2025 Evaluation note* Diagnosis Onset Date Resolution Status [...] 5:20pm Chronic kidney disease inactive Ma y 4th, 2025 5:20pm Osteoporosis chronic November 08 1:42pm CHF (congestive heart failure) acute November 11, 2024 1:54pm HLD (hyperlipidemia) acute November 11, 2024 1:54pm Essential hypertension chronic Ma y 2024 1:54pm Atrial fibrillation with RVR inactiv e November 11, 2024 1:54pm [facility] [employer] Work Phone: [phone]) 593-134404-15-2025 Evaluation note* Diagnosis Onset Date Resolution Status [...] RVR inactiv e November 25, 2024 1:41pm [facility] [employer] [facility] [facility] Work Phone: [phone] 381-514704-15-2025 Evaluation note* Diagnosis Onset Date Resolution Status [...] Essential hypertension chronic Ju ly 2024 11:29am [facility] Work Phone: [phone] 750-473004-15-2025 Discharge summary [facility] Medical Records Department [address] [place] [address] Emergency Department Summary 10/11/24 MR#: [id number] Acct: [id number] Name: REINIER ELIZABETH Rep #:[id number] : 1935 88 From: Brigido Alejandre [employer]ABLE ENGINEER-C PCP: Dr. Anay Schuler MD Status:ADM I N Location: [address] History of Present Illness Chief Complaint: Chest [...] it is making hercough. Here for evaluation. [facility] Medical History Hypothyroidism (acquired) Wears glasses Post-menopausal [...] denosumab 60 mg/mL subcutaneous 60 mg subcut [id number] bone health 08/20/23 Unknown History syringe (Prolia) [...] 70.8 H Lymph % (Auto) 15.2 L Haywood % (Auto) 9.6 Eos % (Auto) 3.7 [...] Sl. Cloudy Urine pH 6.0 Ur Specific [place] 1.015 Urine Protein 30 H Urine Glucose [...] cardiomegaly. The lungs are clear. Reading Location: [facility]- EKG Atrial fibrillation: Attestation: I personally reviewed and interpreted this EKG as follows: Interpretation: Atrial Fibrillation Comments: Atrial fibrillation, rate of 133 bpm, QRS duration 80 ms, no acute ST elevation, no acuteinfarct noted. Treatment and Re-Evaluation :: Differential diagnosis includes however is not limited to: A-fib with RVR, PE, electrode abnormality, hyperthyroidism, hypothyroidism, medication noncompliance, ACS, [place] Patient is tachycardic, patient is in no [...] 70.8 H Lymph % (Auto) 15.2 L Haywood % (Auto) 9.6 Eos % (Auto) 3.7 [...] Sl. Cloudy Urine pH 6.0 Ur Specific [place] 1.015 Urine Protein 30 H Urine Glucose [...] cardiomegaly. The lungs are clear. Reading Location: [place] [address] Management Discussion w/another healthcare provider: Hospitalist and Sack Repairer (cardiology kingston - agrees w/tx for now and will see on floor) Critical Care Time Critical Care Time: Yes Critical care time (excluding procedures): 30-74 minutes (34 min), Including time spent:, Discussing w/Patient &/or Family/Granulizing Machine Operator, Discussing w/Consultants, Arranging Admission or Transfer and Performing Direct Patient Care at Bedside Discharge Plan Dx/Rx/DC Orders Clinical Impression: Chest pain, Paroxysmal atrial fibrillation, Chronic kidney disease, Elevated troponin, Atrial fibrillation with RVR Disposition Disposition: Acute Care Hospital [facility] Discharge Date/Time: 10/11/24 15:31 What to do if you have Problems For any increased pain, shortness of breath, bleeding, nausea or vomiting, chest pain, or any unexpected problems, contact your Primary Care Provider. Call [facility] ([phone]) or report to the closest Emergency Room. Call 911 if necessary. 10/11/24 1400 Cosigner Signature (if applicable): 10/11/24 1544 CC: Dr. Anay Schuler MD ~ Signed [facility]04-15-2025 History and physical note Author Inocencia Long [facility] Note Date/Time October 11, 2024 2:3 0pm [facility] Medical Records Department [address] [place] [address] H&P Exam - Hospitalist 10/11/24 1328 MR#: [id number] Acct: [id number] Name: REINIER ELIZABETH Rep #:[id number] : 1935 88 From: Inocencia Long MD [...] HTN, PAF who presents to the [facility] on 10/11/24 with onset of [...] additional 500 cc IV fluid normal saline. [facility] Medical History Hypothyroidism (acquired) Wears glasses Post-menopausal [...] denosumab 60 mg/mL subcutaneous 60 mg subcut [id number] bone health 08/20/23 Unknown History syringe (Prolia) [...] 70.8 H, Lymph % (Auto) 15.2 L, Haywood % (Auto) 9.6, Eos % (Auto) 3.7, [...] Sl. Cloudy, Urine pH 6.0, Ur Specific [place] 1.015, Urine Protein 30 H, Urine Glucose [...] cardiomegaly. The lungs are clear. Reading Location: [place] [address] Assessment & Plan Assessment/Plan (1) Atrial fibrillation with RVR: (2) Elevated troponin: PLAN: Plan The patient is an 88 y/o F w/ PMHx: Former tobacco use, Hypothyroidism, GERD, CKD stage III unclear subtype per GFR trending although occasional appears stageIV, Chronic anemia, HLF, HTN, PAF who presents to the [facility] on 10/11/24 with onset of [...] her daughter Murtaza who is present and [facility] in [facility]. Discussed CODE status [...] 16 minutes. Charges/Coding Visit Charges Inpatient E&M: 51562 Init Hosp L3 Procedures Hospitalists Procedures: 27266 Advncd Care Plan 30 Min 10/11/24 1430 <Electronically signed by Inocencia Long MD> Cosigner Signature (if applicable): CC: Dr. Inocencia Long MD; Dr. Anay Schuler MD~ Signed [facility] Work Phone: 1(834) 438-402104-15-2025 History and physical note [facility] Medical Records Department [address] [place] [address] H&P Exam - Hospitalist 10/11/24 1328 MR#: [id number] Acct: [id number] Name: REINIER ELIZABETH Rep #:[id number] : 1935 88 From: Inocencia Long MD [...] HLF, HTN, PAF [facility] with onset of racing [...] additional 500 cc IV fluid normal saline. [facility] Medical History Hypothyroidism (acquired) Wears glasses Post-menopausal [...] denosumab 60 mg/mL subcutaneous 60 mg subcut [id number] bone health 08/20/23 Unknown History syringe (Prolia) [...] 70.8 H, Lymph % (Auto) 15.2 L, [place] % (Auto) 9.6, Eos % (Auto) 3.7, [...] Sl. Cloudy, Urine pH 6.0, Ur Specific [place] 1.015, Urine Protein 30 H, Urine Glucose [...] cardiomegaly. The lungs are clear. Reading Location: [facility]-1 Assessment & Plan Assessment/Plan (1) Atrial fibrillation with RVR: (2) Elevated troponin: PLAN: Plan The patient is an 88 y/o F w/ PMHx: Former tobacco use, Hypothyroidism, GERD, CKD stage III unclearsubtype per GFR trending although occasional appears stageIV, Chronic anemia, HLF, HTN, PAF who presents to the [facility] on 10/11/24 with onset of [...] 16 minutes. Charges/Coding Visit Charges Inpatient E&M: 13806 Init Hosp L3 Procedures Hospitalists Procedures: 02924 Advncd Care Plan 30 Min 10/11/24 1430 Cosigner Signature (if applicable): CC: Dr. Inocencia Long MD; Dr. Anay Schuler MD~ Signed [facility]04-15-2025 Radiology Diagnostic study note [facility] Imaging Services [address] [place], [place] [address] Chest 1 View (Portable) MR#: [id number] Acct: [id number] Name: REINIER ELIZABETH Rep #: [id number] : 1935 F 88 From: Timoteo Puga MD PCP: Dr. Anay Schuler MD Status: PRE E R Study:Chest 1 View (Portable) Date of Exam: 10/11/24 Exam# [id number] Ordering Dr: Benito Chan MD PROCEDURE: CHEST [...] cardiomegaly. The lungs are clear. Reading Location: [facility] CC: Dr. Vincent Chan MD; Dr. Anay Schuler MD ~ Welder Machine Operator: Signed [facility]04-14-2025 Telephone encounter Note* Telephone Encounter - Yolette Pérez RN - 10/10/2024 10:07 AM EDT Patient's daughter notified of results and provider's instructions. Patient's daughter verbalizes understanding. Yolette Pérez RN [facility]04-14-2025 Miscellaneous Notes* Telephone Encounter - Yolette [...] patient to return call. Jenniffer Art MA * Telephone Encounter - Merary Perales APRN.CNP - 10/10/2024 7:06 AM EDT Please call let patient know that she did not grow a significant amount of bacteria in her urine. If antibiotics seem to be helping with symptoms she can continue them. If symptoms persist she needs to follow-up with primary care. documented in this encounterCh[facility]04-14-2025 Telephone encounter Note * Telephone Encounter - Jenniffer Art MA - 10/10/2024 7:53 AM EDT Patient given results and verbalized understanding of instructions given. Jenniffer Art MA [facility]04-14-2025 Telephone encounter Note* Telephone Encounter - Jenniffer Art MA - 10/10/2024 7:51 AM EDT Left message for patient to return call. Jenniffer Art MA [facility]04-14-2025 Telephone encounter Note* Telephone Encounter - Merary Perales APRN.CNP - 10/10/2024 7:06 AM EDT Please call let patient know that she did not grow a significant amount of bacteria in her urine. If antibiotics seem to be helping with symptoms she can continue them. If symptoms persist she needs to follow-up with primary care. [facility] Work Phone: [phone] Instructions* Patient Instructions* Michael Sullivan APRN.CNP - 10/08/2024 12:38 PM EDT ASSESSMENT/PLAN: 1. [...] Discussed expected course of illness Michael Sullivan APRN.CNP documented in this encounterChillicothe Hospital04-12-2025 NoteHNO ID: [id number] Author: MICHAEL SULLIVAN APRN.CNP Service: ? Author [...] (age, bleeding) - At risk for stroke [id number] = 4 (HTN, age2, female gender) - [...] - LIG/TRNSXJ FLP TUBE ABDL/VAG APPR UNI/BI 1975 Tubal ligation - PAST SURGICAL HISTORY OF 09/2000 CARDIAC CATH. - PAST SURGICAL HISTORY OF 05/2012, 2018 Glaucoma - right eye left eye - [facility] . Dr Gao - REPAIR FIRST [...] IF UNABLE, PLEASE REFER TO [facility] AT [facility]. DX: EDEMA - latanoprost (XALATAN) 0.005 % ophthalmic solution 1 Drop daily at bedtime. - TRAVATAN Z 0.004 % Drop daily at bedtime. - Cholecalciferol, Vitamin D3, 2,000 unit ORAL Cap Take one(1) tablet two(2) ti (more content not included)...[facility]04-12-2025 History of Present illness Narrative* Michael Sullivan APRN.INJECTOR ASSEMBLER - 10/08/2024 12:11 PM EDT [facility] [employer] [...] 2 (age, bleeding) At risk for stroke [id number] = 4 (HTN, age2, female gender) Benign [...] Glaucoma - right eye left eye - [facility] . Dr Gao REPAIR FIRST ABDOMINAL [...] IF UNABLE, PLEASE REFER TO [facility]. DX: EDEMA latanoprost (XALATAN) 0.005 % [...] Discussed expected course of illness Michael Sullivan APRN.CNP History and Record Review Clinical information obtained from an independent historian. History obtained from or confirmed by:family member. External record(s) reviewed: prior outpatient record and prior labs/imaging. Findings from review of outpatient records: see note Findings from review of prior labs/imaging: see note Disposition The patient was discharged. Procedures documented in this encounterChillicothe Hospital04-12-2025 Telephone encounter Note * Telephone Encounter [...] put her in with an appointment with Dr Sanders, erasmohe could come in to EC. Pt is going to come into EC. Luh George RN [facility]04-12-2025 Miscellaneous Notes* Telephone Encounter - Luh [...] put her in with an appointment with Dr Sanders, orshe could come in to EC. Pt is going to come into EC. Luh George RN * Telephone Encounter - Luh George RN - 10/08/2024 10:09 AM EDT Protocol recommends call PCP now. Sending message to Dr Schuler at pager # [phone]. Care plan reviewed with patient. Told Pt [...] 5. : Postmenopausal. Protocols used: Medication Question [id number] * Telephone Encounter - Margarette Mckenzie - 10/08/2024 9:47 AM EDT Patients daughter Zaina called said patient has been on the potty all night feel very nauseous has had some diarrhea Zaina is questioning if this is due to the Rx that was called in 10/07 for uti Can be reached at [phone] Please advise documented in this encounterChillicothe Hospital04-12-2025 Telephone encounter Note * Telephone Encounter - Luh George RN - 10/08/2024 10:09 AM EDT Protocol recommends call PCP now. Sending message to Dr Schuler at pager # [phone]. Care plan reviewed with patient. Told Pt [...] 5. : Postmenopausal. Protocols used: Medication Question Ckup-DPKEN-[id number] [facility]04-12-2025 Telephone encounter Note* Telephone Encounter - Margarette Mckenzie - 10/08/2024 9:47 AM EDT Patients daughter Zaina called said patient has been on the potty all night feel very nauseous has had some diarrhea Zaina is questioning if this is due to the Rx that was called in 10/07 for uti Can be reached at [phone] Please advise [facility] Work Phone: 1(623) 278-266304-11-2025 Telephone encounter Note* Telephone Encounter - Yany Nieto MA - 10/07/2024 2:26 PM EDT The following approved medication requests have been transmitted electronically. Requested Prescriptions Signed Prescriptions Disp Refills nitrofurantoin monohydrate and macrocrystal (MACROBID) 100 mg capsule 14 capsule 0 Sig: Take 1 capsule by mouth two times a day for 7 days. Authorizing Provider: ANAY SCHULER notified. Yany Nieto MA [facility]04-11-2025 Miscellaneous Notes* Telephone Encounter - Yany Nieto MA - 10/07/2024 2:26 PM EDT The following approved medication requests have been transmitted electronically. Requested Prescriptions Signed Prescriptions Disp Refills nitrofurantoin monohydrate and macrocrystal (MACROBID) 100 mg capsule 14 capsule 0 Sig: Take 1 capsule by mouth two times a day for 7 days. Authorizing Provider: ANAY SCHULER notified. Yany Nieto MA * Telephone Encounter - Anay Schuler MD - 10/07/2024 1:59 PM EDT Rx macrobid to patient. Anay Iniguez MD * Telephone Encounter - Faustina Hoskins RN - 10/07/2024 12:55 PM EDT patients daughter is calling in stating that they believe patients UTI that she was treated for on 09/26 has returned. patient is having pressure, and urgency, and just feeling rosario crummy as she did on the . daughter does not feel patient can come into the office and is requesting that something be called into [facility]. please review and advise, daughter Murtaza needs called back with information documented in this encounterChillicothe Hospital04-11-2025 Telephone encounter Note * Telephone Encounter - Anay Schuler MD - 10/07/2024 1:59 PM EDT Rx macrobid to patient. Regards, Anay Schuler MD [facility]04-11-2025 Telephone encounter Note* Telephone Encounter - Faustina Hoskins RN - 10/07/2024 12:55 PM EDT patients daughter is calling in stating that they believe patients UTI that she was treated for on 09/26 has returned. patient is having pressure, and urgency, and just feeling rosario crummy as she did on the . daughter does not feel patient can come into the office and is requesting that something be called into [facility]. please review and advise, daughter Murtaza needs called back with information [facility]04-02-2025 NoteHNO ID: [id number] Author: ?, ?, ? Service: ? Author [...] related Updated appointment notes Navigation Signature: Margie Corbett Pss September 28, 2024 9:31 [facility]04-02-2025 History of Present illness Narrative* Margie Joseph [...] 28, 2024 9:31 AM documented in this encounterChillicothe Hospital04-02-2025 NotePatient Outreach (NETNAV) REINIER ELIZABETH ([id number]) 1935 F NFR Date Time Provider Department 09/28/24 ANAY SCHULER During your visit today, we [...] IF UNABLE, PLEASE REFER TO [facility] AT [facility]. DX: EDEMA - latanoprost (XALATAN) 0.005 % [...] [K92.2] 06/11/2022 Hypomagnesemia [E83.42] (more content not included)...[facility]04-01-2025 Telephone encounter Note* Telephone Encounter - Jazmine Head LPN - 09/27/2024 4:21 PM EDT Called and spoke to Murtaza patient daughter, voiced understanding Jazmine Head LPN September 27, 2024 4:21 PM [facility]04-01-2025 Miscellaneous Notes* Telephone Encounter - Jazmine Head LPN - 09/27/2024 4:21 PM EDT Called and spoke to Murtaza patient daughter, voiced understanding Jazmine Head LPN September 27, 2024 4:21 PM * Telephone Encounter - Anay Schuler MD - 09/27/2024 1:03 PM EDT I sent a new rx, cipro. I hope that Anay Cohen MD * Telephone Encounter - Yolette Pérez [...] advise, Yolette Pérez RN documented in this encounterChillicothe Hospital04-01-2025 Telephone encounter Note * Telephone Encounter - Anay Schuler MD - 09/27/2024 1:03 PM EDT I sent a new rx, cipro. I hope that helps Regards, Anay Schuler MD [facility]04-01-2025 Telephone encounter Note* Telephone Encounter - [...] Please review and advise, Yolette Pérez RN [facility]03-31-2025 NoteHNO ID: [id number] Author: SILVIO DRAKE APRN.INJECTOR ASSEMBLER Service: ? Author Type: Nurse Practitioner Type: [...] 2 (age, bleeding) At risk for stroke [id number] = 4 (HTN, age2, female gender) Benign [...] Glaucoma - right eye left eye - [facility] . Dr Gao REPAIR FIRST ABDOMINAL [...] IF UNABLE, PLEASE REFER TO [facility] AT [facility]. 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 Dr Gao REPAIR FIRST ABDOMINAL [...] IF UNABLE, PLEASE REFER TO [facility]. DX: EDEMA latanoprost (XALATAN) 0.005 % [...] 06/07/2023 Influenza Vaccine(1) due on 02/28/2024 Covid-19 Vaccine(4 - 2023- season) due on 02/28/2024 Advance [...] plan. Silvio Drake APRN.DARSHAN documented in this encounterChillicothe Hospital03-14-2025 Instructions* Patient Instructions* Anay Schuler MD [...] gland function. - Follow up with your electrolysis needle operator as needed for further evaluation and management of your blood pressure and any arrhythmias. documented in this encounterChillicothe Hospital03-14-2025 History of Present illness Narrative* Anay [...] Lab/Diagnostic Studies are reviewed and discussed today @[facility] Health Maintenance Depression Screening Anxiety Screening Shingrix [...] of ambient AI software for draft documentation of the visit consistent with [facility] s Notice of Privacy Practices. Anay Schuler MD documented in this encounterChillicothe Hospital03-14-2025 NoteHNO ID: [id number] Author: ANAY SCHULER MD Service: ? Author [...] Lab/Diagnostic Studies are reviewed and discussed today @[facility] Health Maintenance Depression Screening Anxiety Screening Shingrix [...] software for draft documentation (more content not included)...[facility]02-04-2025 NoteHNO ID: [id number] Author: ANAY SCHULER MD Service: ? Author [...] She has an upcoming EGD by Dr. Friend the [employer]. Her brother calls her calls her every [...] this happens frequently but not very consistently. [employer] is working for her but it is [...] May. right eye Jun. left eye - [facility] . Dr Gao REPAIR FIRST ABDOMINAL [...] Cap hydrOXYzine HCl (AT (more content not included)...[facility] 08-02-2024 History of Present illness Narrative* [...] an upcoming EGD by Dr. Collins [facility] [employer]. Her brother calls her calls her every [...] this happens frequently but not very consistently. [employer] is working for her but it is [...] Glaucoma - right eye left eye - [facility] . Dr Gao REPAIR FIRST ABDOMINAL [...] bedtime. Anay Schuler MD documented in this encounterChillicothe Hospital01-20-2025 Telephone encounter Note * Telephone Encounter - Nunda Tiffanie Bryant - 07/18/2024 3:09 PM EST [...] Tiffanie Bryant July 18, 2024 3:09 PM [facility]01-20-2025 Miscellaneous Notes* Telephone Encounter - Tiffanie Benitez - 07/18/2024 3:09 PM EST Prescription Refill [...] mouth two times a day. Tiffanie Jorgensen [facility] July 18, 2024 3:09 PM documented in this encounterChillicothe Hospital12-17-2024 Evaluation note* Diagnosis Onset Date Resolution Status Admit Date Hypothyroidism (acquired) chronic June 14, 2024 12:52pm Osteoporosis chronic May 12:52pm Atrial fibrillation with RVR acute October 11, 2024 2:08pm Elevated troponin acute September 272024 2:08pm [facility] Work Phone: [phone] NoteHNO ID: [id number] Author: JEREMY YU MD Service: ? Author [...] 2 (age, bleeding) At risk for stroke [id number] = 4 (HTN, age2, female gender) Benign [...] IF UNABLE, PLEASE REFER TO [facility] AT [facility]. DX: EDEMA latanoprost (XALATAN) 0.005 % [...] mL/min/1.73m? 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 ASSESSMENT/PLAN: 1. Urinary frequency - ICD9: 788.41, ICD10: R35.0 - UA positive for gurwinedr esterase, hematuria, proteinuria, and nitrates - UA DIP, URINE (POC) - NITROFURANTOIN MONOHYDRATE AND MACROCRYSTAL 100 MG ORAL CAP. - URINE CULTURE - bactrim can be used with caution if needed (taking ARB and KCl). Jeremy Yu, [facility]12-13-2024 History of Present illness Narrative* [...] 2 (age, bleeding) At risk for stroke [id number] = 4 (HTN, age2, female gender) Benign [...] IF UNABLE, PLEASE REFER TO [facility]. DX: EDEMA latanoprost (XALATAN) 0.005 % [...] mL/min/1.73m 35 (L) Reports last labs with cooler service supervisor were very good. ASSESSMENT/PLAN: 1. Urinary frequency - ICD9: 788.41, ICD10: R35.0 - UA positive for gurwinder esterase, hematuria, proteinuria, and nitrates - UA DIP, URINE (POC) - NITROFURANTOIN MONOHYDRATE & MACROCRYSTAL 100 MG ORAL CAP. - URINE CULTURE - bactrim can be used with caution if needed (taking ARB and KCl). Jeremy Yu MD documented in this encounterChillicothe Hospital12-13-2024 Telephone encounter Note * Telephone Encounter - Jazmine Head LPN - 06/10/2024 1:14 PM EST Called and updated patient to come in to give urine sample to lab. Voiced understanding. Jazmine Head LPN June 10, 2024 1:15 PM [facility]12-13-2024 Miscellaneous Notes* Telephone Encounter - Jazmine Head LPN - 06/10/2024 1:14 PM EST Called and updated patient to come in to give urine sample to lab. Voiced understanding. Jazmine Head LPN June 10, 2024 1:15 PM * Telephone Encounter - Anay Schuler MD - 06/10/2024 12:50 PM EST Please call patient mariia to tell her to come in to give the urine Hira, Anay Schuler MD * Telephone Encounter - Felicity Sprague [...] or does she need to come in. Felciity Sprague LPN documented in this encounterChillicothe Hospital12-13-2024 Telephone encounter Note * Telephone Encounter - Anay Schuler MD - 06/10/2024 12:50 PM EST Please call patient mariia to tell her to come in to give the urine Hira, Anay Schuler MD [facility]12-13-2024 Telephone encounter Note* Telephone Encounter - [...] need to come in. Felicity Sprague LPN [facility]12-02-2024 NoteHNO ID: [id number] Author: ANAY SCHULER MD Service: ? Author Type: Physician Type: Progress Notes Filed: 05/30/2024 17:59 Note Text: Reason for Visit Patient presents with: Follow Up Reinier Elizabeth is a 86 year old female who presents here today for Above Complaints.. Health Maintenance ADVANCE DIRECTIVE DISCUSSION HPI Here with her daughter zaian, today and notes that she is feeling [...] her blood pressure after all hospitalizations from [facility] with RVR, cardioversion and addition of different [...] an upcoming EGD by Dr. Collins [facility] [employer]. Her brother calls her calls her every [...] 2 (age, bleeding) At risk for stroke [id number] = 4 (HTN, age2, female gender) Benign [...] - May. right eye left eye - [facility] . Dr Gao REPAIR FIRST ABDOMINAL [...] quittin.9 Smokeless tobacco: Never Tobacco comments: Quit 1969's 4-5 cig per day Vaping Use Vaping status: Never Used Substance Use Topics Alcohol use: No Drug use: No Past medical history, appointments, medications, allergies reviewed. Pertinent Lab/Diagnostic Studies are reviewed and discussed today Current Outpatient Me (more content not included)...[facility] 05-30-2024 History of Present illness Narrative* [...] has an upcoming EGD by [facility] [employer]. Her brother calls her calls her every [...] 2 (age, bleeding) At risk for stroke [id number] = 4 (HTN, age2, female gender) Benign [...] - May. right eye left eye - [facility] . Dr Gao REPAIR FIRST ABDOMINAL [...] quittin.9 Smokeless tobacco: Never Tobacco comments: Quit 1969's [...] then Anay Schuler MD documented in this encounterChillicothe Hospital11-22-2024 Telephone encounter Note * Telephone Encounter - Olamide Hirsch RN - 05/20/2024 4:03 PM EST Called pt back and explained that our office does not prescribe her Carvedilol. Pt does have a electrolysis needle operator at [facility]. Ning Spencer was prescriber. Pt verbalizes understanding. [facility]11-22-[facility]24 Miscellaneous Notes* Telephone Encounter - Olamide Hirsch RN - 05/20/2024 4:03 PM EST Called pt back and explained that our office does not prescribe her Carvedilol. Pt does have a electrolysis needle operator at [facility]. Ning Spencer was prescriber. Pt verbalizes understanding. * Telephone Encounter - Tiffanie Benitez - 05/20/2024 2:40 PM EST Prescription Refill [...] 20, 2024 2:41 PM documented in this encounterChillicothe Hospital11-22-2024 Telephone encounter Note * Telephone Encounter - Tiffanie Benitez - 05/20/2024 2:40 PM EST Prescription Refill [...] two times a day with meals. Tiffanie Jorgensen [facility] May 20, 2024 2:41 PM [facility]10-16-2024 Telephone encounter Note* Telephone Encounter - [facility] Margie Bryant - 04/13/2024 9:31 AM EDT [...] Margie Bryant April 13, 2024 9:32 AM [facility]10-16-2024 Miscellaneous Notes* Telephone Encounter - Margie [...] 13, 2024 9:32 AM documented in this encounterChillicothe Hospital09-25-2024 Telephone encounter Note * Telephone Encounter [...] Paulina Nelson March 23, 2024 10:00 AM [facility]09-25-2024 Miscellaneous Notes* Telephone Encounter - Paulina [...] before breakfast. 1/2 hr before meal. Paulina Cara [facility] March 23, 2024 10:00 AM documented in this encounterChillicothe Hospital07-17-2024 Telephone encounter Note * Telephone Encounter - Margarette Perry LPN - 01/13/2024 10:39 AM EDT Pt notified of results & instructions, pt voiced understanding. Margarette Perry LPN [facility]07-17-2024 Miscellaneous Notes* Telephone Encounter - Margarette [...] stools that are black. documented in this encounterChillicothe Hospital07-17-2024 Telephone encounter Note * Telephone Encounter - Megha Rivera MA - 01/13/2024 10:34 AM EDT LM for patient to contact office. Megha Rivera MA [facility]07-17-2024 Telephone encounter Note* Telephone Encounter - [...] out for any stools that are black. [facility]07-15-[facility] History of Present illness Narrative* Anay [...] her blood pressure after all hospitalizations from [facility] with RVR, cardioversion and addition of different [...] has an upcoming EGD by [facility] [employer]. Her brother calls her calls her every day, visits every Thursday. Has a decent flower bed. No problem-specific Assessment & Plan notes found for this encounter. PAST MEDICAL HISTORY Diagnosis Date Acquired keratoderma Lichen sclerosis Anemia Anticoagulant long-term use indication: stroke prevention atrial fibrillation At risk for bleeding associated with anticoagulants HAS-BLED score = 2 (age, bleeding) At risk for stroke [id number] = 4 (HTN, age2, female gender) Benign [...] - May. right eye left eye - [facility] . Dr Gao REPAIR FIRST ABDOMINAL [...] TEST/AUDIOGRAM Anay Schuler MD documented in this encounterChillicothe Hospital07-15-2024 NoteHNO ID: [id number] Author: ANAY SCHULER MD Service: ? Author [...] [facility], cardioversion and addition of [...] an upcoming EGD by Dr. Collins the [employer]. Her brother calls her calls her every day, visits every Thursday. Has a decent flower bed. No problem-specific Assessment AND Plan notes found for this encounter. PAST MEDICAL HISTORY Diagnosis Date Acquired keratoderma Lichen sclerosis Anemia Anticoagulant long-term use indication: stroke prevention atrial fibrillation At risk for bleeding associated with anticoagulants HAS-BLED score = 2 (age, bleeding) At risk for stroke [id number] = 4 (HTN, age2, female gender) Benign [...] Glaucoma - right eye left eye - [facility] . Dr Gao REPAIR FIRST ABDOMINAL [...] iron) tablet hydrALAZINE ( (more content not included)...[facility]04-09-2024 Miscellaneous Notes* Telephone Encounter - Briana Yan LPN - 10/06/2023 2:18 PM EDT Pt calls to request Vit D25 lab result be faxed to Dr. Basilio @ [phone]. Result faxed as requested. Briana Yan LPN documented in this encounterChillicothe Hospital04-01-2024 Instructions* Patient Instructions* Megha Mahoney PA-C [...] irritant-type. Patch testingshould be done by a fish warden or motor transport inspector who is trained in this procedure. Treatment [...] perfumes and cosmetics, components of rubber, nail bulgarian, and chemicals in shoes (both leather and [...] cases and is usually performed by a fish warden or allerg ist. Treatment -- Allergic contact [...] These individuals may need to see a fish warden or motor transport inspector for specialized skin patch tests and blood [...] as a precautionary measure. documented in this encounterChillicothe Hospital04-01-2024 History of Present illness Narrative* Megha [...] 2 (age, bleeding) At risk for stroke [id number] = 4 (HTN, age2, female gender) Benign [...] May. right eye Jun. left eye - [facility] . Dr Gao REPAIR FIRST ABDOMINAL [...] IF UNABLE, PLEASE REFER TO [facility] AT [facility]. DX: EDEMA latanoprost (XALATAN) 0.005 % [...] plan. Megha Mahoney PA-C documented in this encounterChillicothe Hospital02-23-2024 Miscellaneous Notes* Telephone Encounter - Haydee Mccauley Ma - 08/21/2023 2:34 PM EST Patient notified. * Telephone Encounter - Haydee Mccauley Ma - 08/21/2023 1:31 PM EST ----- Message from Silvio Drake APRN.INJECTOR ASSEMBLER sent at 08/21/2023 1:14 PM EST ----- Blood work similar to past readings and both decreased kidney function and anemia stable at this time. Thank you Silvio Drake APRN.INJECTOR ASSEMBLER documented in this encounterChillicothe Hospital02-20-2024 History of Present illness Narrative* Megha Mahoney PA-C - 08/18/2023 1:21 PM EST CC: Patient presents with: Follow Up HPI Reinier Elizabeth is a 87 year old female who presents today for BP f/u and to review results of renal US. Recently hospitalized at [facility] from 07/13-07/16 following syncopal episode after initiating [...] Will also be seeing Faustina Hernandez through [facility] on as well. HTN: Ms. [...] 2 (age, bleeding) At risk for stroke [id number] = 4 (HTN, age2, female gender) Benign [...] May. right eye Jun. left eye - [facility] . Dr Miedel REPAIR FIRST ABDOMINAL WALL HERNIA 12/14/2012 2cm [...] IF UNABLE, PLEASE REFER TO [facility] AT [facility]. DX: EDEMA latanoprost (XALATAN) 0.005 % [...] plan. Megha Mahoney PA-C documented in this encounterChillicothe Hospital02-09-2024 Miscellaneous Notes* Telephone Encounter - Joyce [...] of hemodynamically significant stenosis. documented in this encounterChillicothe Hospital12-04-2023 Instructions* Patient Instructions* Jolie Marshall APRN.CNS [...] feeling dizzy or fatigued. documented in this encounterChillicothe Hospital12-04-2023 History of Present illness Narrative* Jolie Marshall, ACCOUNTING SUPERVISOR.INSTRUMENTATION TECHNOLOGIST - 06/01/2023 2:20 PM EST SUBJECTIVE: Advance Directive Discussion Never done Covid-19 Vaccine( - 2022- season) due on 02/27/2023 DTaP,Tdap,Td Vaccine(3 - [...] 130/76 04/09/2022 90/52 04/02/2022 122/78 03/20/2022 112/70 Guard Rail Installer: Dr Sewell, has upcoming appointment EP: Dr [...] IF UNABLE, PLEASE REFER TO [facility]. DX: EDEMA latanoprost (XALATAN) 0.005 % [...] 2 (age, bleeding) At risk for stroke [id number] = 4 (HTN, age2, female gender) Benign [...] quittin.9 Smokeless tobacco: Never Tobacco comments: Quit 1969's [...] or feeling dizzy or fatigued. Jolie Marshall APRN.INSTRUMENTATION TECHNOLOGIST Medical Decision Making: Problems: Moderate: 1+ chronic illnesses with change Risk: Moderate: Drug management Medical Decision Making Level: 4 - Moderate documented in this encounterChillicothe Hospital11-09-2023 Miscellaneous Notes* Telephone Encounter - Margie Garcia - 05/07/2023 11:22 AM EST Patient calling about hydralazine. Advised patient to check with pharmacy. documented in this encounterChillicothe Hospital11-03-2023 History of Present illness Narrative* Toshia Drake APRN.INJECTOR ASSEMBLER - 05/01/2023 12:10 PM EDT CC Patient [...] afternoon. She had an appointment with her cooler service supervisor yesterday, BP was 130/68. She brought her [...] 2 (age, bleeding) At risk for stroke [id number] = 4 (HTN, age2, female gender) Benign [...] May. right eye Jun. left eye - [facility] . Dr Gao REPAIR FIRST ABDOMINAL [...] IF UNABLE, PLEASE REFER TO [facility]. DX: EDEMA latanoprost (XALATAN) 0.005 % [...] plan Toshia Drake APRN.CNP documented in this encounterChillicothe Hospital10-18-2023 Instructions* Patient Instructions* Megha Mahoney PA-C - 04/15/2023 3:45 PM EDT TrueBP average on the machine 217/67 - left arm sitting. Manual recheck 200/78 Continue on Carvedilol 12.5 mg twice daily, Losartan 50 mg twice daily. Will increase hydralazine to 10 mg three times daily. documented in this encounterChillicothe Hospital10-18-2023 History of Present illness Narrative* Megha Mahoney PA-C - 04/15/2023 3:13 PM EDT CC: Patient presents with: Follow Up: blood pressure- elevated and check home bp monitor HPI Reinier Elizabeth is a 87 year old female who presents today for 1 week follow-up elevated blood pressure, and wanting to f/u on XR thoracic spine. Last visit was on 04/09/2023 with Silvio Drake CNP andat that time blood pressure was elevated [...] 2 (age, bleeding) At risk for stroke [id number] = 4 (HTN, age2, female gender) Benign [...] - May. right eye left eye - [facility] . Dr Gao REPAIR FIRST ABDOMINAL [...] IF UNABLE, PLEASE REFER TO [facility]. DX: EDEMA latanoprost (XALATAN) 0.005 % [...] plan. Megha Mahoney PA-C documented in this [facility]10-18-2023 Nurse Note* Kia Dixon - 04/15/2023 3:05 PM EDT Home BP monitor left arm :Error code E2, patient did not bring monitor book with her to know what the error code is documented in this encounterChillicothe Hospital10-13-2023 Miscellaneous Notes* Telephone Encounter - Tonya Danielson OCCA - 04/10/2023 10:08 AM EDT TC to patient who verbalized understanding of providers message below and has no questions at this time. FREDDY Chavez * Telephone Encounter - Tonya Danielson OCCA - 04/10/2023 7:56 AM EDT ----- Message from Silvio Drake APRN.INJECTOR ASSEMBLER sent at 04/10/2023 6:59 AM EDT ----- Please let patient know blood work is all within acceptable ranges. HgbA1c is now in normal range Thank you Silvio Drake APRN.INJECTOR ASSEMBLER documented in this encounterChillicothe Hospital10-12-2023 History of Present illness Narrative* Kirstie [...] 09, 2023 1:18 PM documented in this encounterChillicothe Hospital10-12-2023 Instructions* Patient Instructions* Silvio Drake APRN.INJECTOR ASSEMBLER - 04/09/2023 12:49 PM EDT Please take over the counter Vit d 3 2000 IU daily and get 4181-4380 mg per day calcium. Calcium isbest absorbed [...] fat, 8 ounces 415 mg per serving [place] juice, calcium-fortified, 6 ounces 375 mg per [...] calcium sulfate, cup 253 mg per serving Hardy, pink, canned, solids with bone, 3 ounces 181 mg per serving Cottage cheese, 1% milk fat, 1 cup 138 mg per serving Instant breakfast drink, various flavors and brands, powder prepared with water, 8 ounces 105-250 mg per serving Frozen yogurt, vanilla, soft serve, cup 103 mg per serving Prrfw-sa-skj cereal, calcium-fortified, 1 cup 100-1,000 mg per serving Turnip greens, fresh, boiled, cup 99 mg per serving Kale, fresh, cooked, 1 cup 94 mg per serving Kale, raw, chopped, 1 cup 90 mg per serving Tofu, soft, made with calcium sulfate, cup 138 mg per serving Ice cream, vanilla, cup 84 mg per serving Soy beverage, calcium-fortified, 8 ounces 80-500 mg per serving Liberian cabbage, bok [place], raw, shredded, 1 cup 74 mg per serving Bread, white, 1 slice 73 mg per serving Pudding, chocolate, ready to eat, refrigerated, 4 ounces 55 mg per serving Tortilla, corn, jsruc-il-bpui/porter, one 6 diameter 46 mg per serving Tortilla, flour, uxeml-tn-mcyh/porter, one 6 diameter 32 mg per serving Sour cream, reduced fat, cultured, 2 tablespoons 31 mg per serving Bread, whole-wheat, 1 slice 30 mg per serving Broccoli, raw, cup 21 mg per serving Cheese, cream, regular, 1 tablespoon 14 mg per serving documented in this encounterChillicothe Hospital10-12-2023 History of Present illness Narrative* Silvio [...] 2 (age, bleeding) At risk for stroke [id number] = 4 (HTN, age2, female gender) Benign [...] May. right eye Jun. left eye - [facility] . Dr Gao REPAIR FIRST ABDOMINAL [...] IF UNABLE, PLEASE REFER TO [facility] AT [facility]. DX: EDEMA alendronate (FOSAMAX) 70 mg [...] Vaccine(1) due on 02/27/2023 Covid-19 Vaccine(4 - season) due on 02/27/2023 Shingrix Vaccine(1 of [...] plan. Silvio Drake APRN.CNP documented in this encounterChillicothe Hospital09-25-2023 Miscellaneous Notes* Telephone Encounter - Kia [...] and advise. Allyson Gaxiola documented in this encounterChillicothe Hospital08-25-2023 Miscellaneous Notes* Telephone Encounter - Kia [...] 02/19/2023 9:55 AM EDT Pharmacy verified in [facility] Patient has been identified by name and [...] Please advise. Margie Bryant documented in this encounterChillicothe Hospital08-09-2023 Miscellaneous Notes* Telephone Encounter - Silvio Drake APRN.CNP - 02/04/2023 7:33 AM EDT Noted Silvio Drake APRN.CNP * Telephone Encounter - Jess [...] until her 04/09/23 appointment with Silvio Drake OUTSIDE PLANT CABLE ENGINEER and discuss it then. Luh George RN * Telephone Encounter - [...] taking. Brianne Toribio RN documented in this encounterCleveland [id number] NoteHNO ID: [id number] Author: Maura Giles MD Service: ? Author Type: Physician Type: Progress Notes Filed: 02/02/2023 7:41 PM Note Text: PRIMARY CARE PHYSICIAN: Anay Schuler [address] [place] [address] REFERRING PHYSICIAN: Fredis Marie MD ([facility]) [address] [facility] [address] Patient Care Team: Anay Schuler MD as PCP - General (Internal Medicine) Fredis Marie as Specialty Sack Repairer (Cardiology) Yuriy Collins DO as Specialty Sack Repairer (Gastroenterology) CHIEF COMPLAINT: Evaluation for stroke prevention HISTORY OF PRESENT ILLNESS: Ms. Elizabeth is a 87 year old female who presents today for evaluation, referred by [facility], accompanied today by her daughter. [...] disease) Disorder of bone and cartilage, unspecified DIKCERSON (dyspnea on exertion) Elevated liver enzymes Essential [...] - May. right eye left eye - [facility] . Dr Gao REPAIR FIRST ABDOMINAL [...] by mouth twice da (more content not included)...[facility]08-01-2023 History of Present illness Narrative* Maura Giles MD - 01/27/2023 3:44 PM EDT PRIMARY CARE PHYSICIAN: Anay Schuler [address] [place] [address] REFERRING PHYSICIAN: Fredis Marie MD ([facility]) [address] [facility] [address] [facility] [address] Patient Care Team: Anay Schuler MD as PCP - General (Internal Medicine) Fredis Marie as Specialty Sack Repairer (Cardiology) Friend, Yuriy Oliver DO as Specialty Sack Repairer (Gastroenterology) CHIEF COMPLAINT: Evaluation for stroke prevention HISTORY OF PRESENT ILLNESS: Ms. Elizabeth is a 87 year old female who presents today for evaluation, referred by [facility], accompanied today by her daughter. [...] - May. right eye left eye - [facility] . Dr Gao REPAIR FIRST ABDOMINAL [...] IF UNABLE, PLEASE REFER TO [facility] AT [facility]. DX: EDEMA latanoprost (XALATAN) 0.005 % [...] bradycardia 54 bpm; PACs; normal conduction intervals (VA 192 ms, QRS 88 ms); QTc 403 [...] that toproceed with Watchman device implant the [facility]/Medicare requires shared decision making documentation from a non-implanting physician -- either PCP or general electrolysis needle operator or GI specialist that outlines the rationale [...] the input from GI, PCP and general electrolysis needle operator in this regard but as I stated [...] literature and also directed them to the [employer] website for additional educational information. They will givethis option consideration, and if they determined they would like to pursue Watchman implant AND her physicians including Dr. Collins consider the risk:benefit of care home oral anticoagulation therapy to be unfavorable, then [...] Level: 4 - Moderate documented in this encounterChillicothe Hospital08-01-2023 Nurse Note* Allison Gaxiola MA - 01/27/2023 3:24 PM EDT Patient denies any cardiac issues or symptoms. documented in this encounterChillicothe Hospital07-17-2023 History of Present illness Narrative* Wilber Tariq, RT(R) - 01/12/2023 2:00 PM EDT Radiology [...] 12, 2023 1:56 PM documented in this encounterChillicothe Hospital07-12-2023 History of Present illness Narrative* Silvio Drake APRN.INJECTOR ASSEMBLER - 01/07/2023 1:28 PM EDT CC: Patient [...] - May. right eye left eye - [facility] . Dr Gao REPAIR FIRST ABDOMINAL [...] IF UNABLE, PLEASE REFER TO [facility]. DX: EDEMA latanoprost (XALATAN) 0.005 % [...] plan. Silvio Drake APRN.CNP documented in this encounterChillicothe Hospital06-20-2023 Miscellaneous Notes* Telephone Encounter - Jess [...] needs to stop it. Kayla Grace APRN.CNP * Telephone Encounter - Margie Wheeler RN - 12/16/2022 10:17 AM EDT Pharmacy generated refill request. Last seen 10/29/21 Requested Prescriptions Pending Prescriptions Disp Refills alendronate (FOSAMAX) 70 mg tablet [Pharmacy Med Name: ALENDRONATE SODIUM 70 MG TAB] 12 tablet 3 Sig: take 1 tablet by mouth every week Margie Wheeler RN documented in this encounterChillicothe Hospital04-14-2023 Miscellaneous Notes* Telephone Encounter - Haydee [...] Regards, Anay Schuler MD documented in this encounterChillicothe Hospital04-12-2023 Miscellaneous Notes* Telephone Encounter - Anay [...] Amandeep Fuentes. Thank you. documented in this encounterChillicothe Hospital03-15-2023 History of Present illness Narrative* Anay [...] - May. right eye left eye - [facility] . Dr Gao REPAIR FIRST ABDOMINAL [...] (COREG) 3.125 mg tablet Spirometers and Accessories mgadalena levothyroxine (LEVOXYL) 25 mcg tablet atorvastatin (LIPITOR) [...] before. Anay Schuler MD documented in this encounterChillicothe Hospital02-06-2023 Miscellaneous Notes* Telephone Encounter - Luh [...] a urine sample. Thank you Silvio Drake APRN.INJECTOR ASSEMBLER * Telephone Encounter - Luh George RN [...] culture. Please calland advise. documented in this encounterChillicothe Hospital01-04-2023 Miscellaneous Notes* Telephone Encounter - Abimbola [...] Collins's office. States she seen Celeste Bell OUTSIDE PLANT CABLE ENGINEER in Dr. Collins's office GI. Her electrolysis needle operator is Dr. Frey. * Telephone Encounter - [...] GI and cardiology? Thanks documented in this encounterChillicothe Hospital01-03-2023 Miscellaneous Notes* Telephone Encounter - Felicity Sprague LPN - 07/01/2022 10:06 AM EST Pt requesting 90 day supply. Felicity Sprague [facility] Patient has been identified by name and [...] you. Felicity Sprague LPN documented in this encounterChillicothe Hospital12-16-2022 Miscellaneous Notes* Telephone Encounter - Silvio Drake APRN.CNP - 06/13/2022 7:55 AM EST No TSH level in labs, discussed further in PCP visit. Silvio Drake APRN.DARSHAN * Telephone Encounter - Haydee Mccauley Ma - 06/04/2022 12:23 PM EST Latest lab placed on PCP for review. * Telephone Encounter - Silvio Drake APRN.CNP - 06/02/2022 4:38 PM EST TSH was normal in March. Was this drawn elsewhere? If so please get result on place on mine or Dr. Dumont desk. Thank you Silvio Drake APRN.CNP * Telephone Encounter - Briana Yan LPN [...] Pt daughter, Murtaza, calling to state pt's electrolysis needle operator wanted thyroid levels rechecked. Pt is coming into office early next week to have labs drawn for PCP (CMP, CBC). Murtaza asking if PCP will add thyroid labs on so pt get it all done with 1 lab drawn. Advised PCP is out of office until Thursday. Please advise and notify Murtaza. Richie Johnson LPN documented in this encounterChillicothe Hospital12-01-2022 History of Past illness Narrative* Problem [...] of this encounter (statuses as of 01/28/2023) [facility] of Past illness Narrative* Problem [...] of this encounter (statuses as of 02/03/2023) [facility] of Past illness Narrative* Problem [...] of this encounter (statuses as of 02/04/2023) [facility] of Past illness Narrative* Problem [...] of this encounter (statuses as of 02/20/2023) [facility] illness Narrative* Problem [...] of this encounter (statuses as of 03/23/2023) [facility] of Past illness Narrative* Problem [...] of this encounter (statuses as of 04/10/2023) [facility] of Past illness Narrative* Problem [...] of this encounter (statuses as of 04/15/2023) [facility] of Past illness Narrative* Problem [...] of this encounter (statuses as of 04/16/2023) [facility] of Past illness Narrative* Problem [...] of this encounter (statuses as of 05/03/2023) [facility] Past illness Narrative* Problem [...] of this encounter (statuses as of 05/05/2023) [facility] of Past illness Narrative* Problem [...] of this encounter (statuses as of 05/07/2023) [facility] illness Narrative* Problem [...] of this encounter (statuses as of 06/02/2023) [facility] Past illness Narrative* Problem [...] of this encounter (statuses as of 08/07/2023) [facility] illness Narrative* Problem [...] of this encounter (statuses as of 08/18/2023) [facility] illness Narrative* Problem [...] of this encounter (statuses as of 08/21/2023) [facility] illness Narrative* Problem [...] of this encounter (statuses as of 09/29/2023) [facility] Past illness Narrative* Problem [...] of this encounter (statuses as of 10/07/2023) [facility] of Present illness Narrative* Anay [...] May. right eye Jun. left eye - [facility] . Dr Gao REPAIR FIRST ABDOMINAL [...] control. Anay Schuler MD documented in this encounterChillicothe Hospital10-24-2022 History of Present illness Narrative* Anay [...] - right eye Nolan. left eye - [facility] . Dr Gao REPAIR FIRST ABDOMINAL [...] control. Anay Schuler MD documented in this encounterChillicothe Hospital10-17-2022 Miscellaneous Notes* Telephone Encounter - Anay [...] for possible early pneumonia. documented in this encounterChillicothe Hospital10-14-2022 Miscellaneous Notes* Telephone Encounter - Joyce [...] day appt with pcp. documented in this encounterChillicothe Hospital10-13-2022 History of Present illness Narrative* Simone [...] 10, 2022 11:37 AM documented in this encounterChillicothe Hospital10-13-2022 Miscellaneous Notes* Telephone Encounter - Olga Juarez LPN - 04/10/2022 11:39 AM EDT Patient currently getting xray now * Telephone Encounter - Silvio Drake APRN.DARSHAN - 04/10/2022 11:34 AM EDT Patient saw Dr. Schuler yesterday and was told to have follow up chest xray for continued cough. Order placed. Silvio Drake APRN.CNP documented in this encounterChillicothe Hospital10-12-2022 History of Present illness Narrative* Anay [...] - May. right eye left eye - [facility] . Dr Gao REPAIR FIRST ABDOMINAL [...] BLD Anay Schuler MD documented in this encounterChillicothe Hospital10-07-2022 Miscellaneous Notes* Telephone Encounter - Haydee [...] cardiology as requested. Thank you Silvio Drake APRN.CNP * Telephone [...] Squires. Faxed to Tex Squires CNP at [phone]. Brianne Toribio RN documented in this encounterChillicothe Hospital10-05-2022 Miscellaneous Notes* Telephone Encounter - Haydee [...] you Silvio Drake APRN.CNP documented in this encounterChillicothe Hospital10-05-2022 History of Present illness Narrative* Silvio [...] Glaucoma - right eye left eye - [facility] . Dr Gao REPAIR FIRST ABDOMINAL [...] IF UNABLE, PLEASE REFER TO [facility] AT [facility]. DX: EDEMA latanoprost (XALATAN) 0.005 % [...] 65+ Completed DATA REVIEWED: Outside chart from [facility] reviewed. ASSESSMENT/PLAN: 1. Acute cough - [...] plan. Silvio Drake APRN.CNP documented in this encounterChillicothe Hospital10-03-2022 Miscellaneous Notes* Telephone Encounter - Silvio Drake APRN.CNP - 03/31/2022 7:24 AM EDT Reviewed in appointment today. Silvio Drake APRN.CNP * Telephone Encounter - Abimbola Abbott LPN - 03/28/2022 4:34 PM EDT Patient daughter Verona Bates returned call and went over notes from Silvio Drake OUTSIDE PLANT CABLE ENGINEER with understanding. Daughter said mother told her she was having loose stools. She was trying to have her drink some Pedilyte but mother likes water. Daughter said [facility] told her this morning [...] this as well. Thank you Silvio Drake APRN.DARSHAN * Telephone Encounter - Yolette Pérez RN - 03/28/2022 1:32 PM EDT Patient's daughter Murtaza calls and states patient had see electrolysis needle operator Tex Squires. Tex has some concerns that [...] advise, Yolette Pérez RN documented in this encounterChillicothe Hospital09-23-2022 Miscellaneous Notes* Telephone Encounter - Haydee [...] of. Pt would like antibiotics sent to [facility] in [place]. Luh George RN * Telephone Encounter - [...] penicillin based antibiotics? Thank you Silvio Drake APRN.CNP documented in this encounterChillicothe Hospital09-22-2022 History of Present illness Narrative* Silvio [...] this office with average BP's in the [id number] range. . Last 3 Encounter BP Readings: [...] Glaucoma - right eye left eye - [facility] . Dr Gao REPAIR FIRST ABDOMINAL [...] IF UNABLE, PLEASE REFER TO [facility] AT [facility]. DX: EDEMA latanoprost (XALATAN) 0.005 % [...] plan. Silvio Drake APRN.CNP documented in this encounterChillicothe Hospital09-16-2022 Miscellaneous Notes* Telephone Encounter - Shanita [...] patient. Megha Betancourt Pss documented in this encounterChillicothe Hospital09-12-2022 History of Present illness Narrative* Anay [...] - May. right eye left eye - [facility] . Dr Gao REPAIR FIRST ABDOMINAL [...] DIFF Anay Schuler MD documented in this encounterChillicothe Hospital08-26-2022 History of Present illness Narrative* Anay [...] Glaucoma - right eye left eye - [facility] . Dr Gao REPAIR FIRST ABDOMINAL [...] sweating. Anay Schuler MD documented in this encounterChillicothe Hospital08-18-2022 Miscellaneous Notes* Telephone Encounter - Richie [...] who patient spoke with, General Surgery in [place] will see patient. left patient message to call and schedule. Gave direct number [phone]. Richie Fernandes documented in this encounterChillicothe Hospital07-30-2022 Miscellaneous Notes* Telephone Encounter - Megha Head - 01/25/2022 12:08 PM EDT T/c to pt, she stated that she was not interested in scheduling at this time. She is following up with a kidney doctor and GI specialist at the [facility]. Thank you, Megha Head * Telephone Encounter - Olga Juarez LPN - 01/09/2022 10:37 AM EDT Left message to return call to schedule. * Telephone Encounter - Anay Schuler MD - 01/08/2022 11:33 PM EDT Please set reinier up to see us in the next couple weeks for her results Regards, Anay Schuler MD documented in this encounter[facility]22 Miscellaneous Notes* Telephone Encounter - Yolette Caban - 01/18/2022 12:45 PM EDT Spoke with patient and she does not want to see a ironworker apprentice shop outside of [place]. Patient will call [facility] to schedule locally. Yolette Caban * [...] to schedule appt with general surgery at [facility], but they would not let her [...] test. Toshia Drake APRN.CNP documented in this encounterChillicothe [facility]07-21-2022 Miscellaneous Notes* Telephone Encounter - Kayla Grace APRN.CNP - 01/16/2022 12:38 PM EDT Vitamin D level ordered to be drawn with next lab draw. Kayla Grace APRN.CNP * Telephone Encounter - Claire Estes RN - 01/16/2022 10:28 AM EDT Refill request received from pharmacy. Patient last seen in the office on 10/29/21. Claire Estes RN documented in this encounterChillicothe [facility]06-29-2022 Miscellaneous Notes* Telephone Encounter - Yany aGrza Cma - 12/25/2021 2:44 PM EDT Patient notified and verbalized understanding Yany Garza Cma * Telephone Encounter - Silvio Drake APRN.CNP - 12/25/2021 2:14 PM EDT Please let patient know that kidney function has decreased. She needs to drink plenty of water, avoid ibuprofen, advil, aleve, or any other over the counter anti-inflammatories. We will recheck in 2 weeks. Thank you Silivo Drake APRN.CNP documented in this encounterChillicothe [facility]06-14-2022 History of Present illness Narrative* Anay [...] Glaucoma - right eye left eye - [facility] . Dr Gao REPAIR FIRST ABDOMINAL [...] Smokeless tobacco: Never Used Tobacco comment: Quit 1969's 4-5 cig per day Vaping [...] Patient presents with: Medicare Wellness Exam Reinier Elizaebth is a 86 year old female who [...] - May. right eye left eye - [facility] . Dr Gao REPAIR FIRST ABDOMINAL [...] BLD Anay Schuler MD documented in this encounterChillicothe [facility]03-28-2022 Miscellaneous Notes* Telephone Encounter - Luh George RN - 09/23/2021 4:23 PM EDT Pt called and is notified of providers message and instructions. Pt voices understanding. Pt will come do urine sample in the morning. Luh George RN * Telephone Encounter - Silvio Drake APRN.CNP - 09/23/2021 4:15 PM EDT I placed orders for urinalysis and culture. I did go ahead and sent a prescription to her pharmacy for macrobid one pill twice a day. I would prefer to have a urine sample prior to starting this if possible. Thank you Silvio Drake APRN.CNP * Telephone [...] Please call and advise. documented in this encounterChillicothe Hospital03-30-2021 History of Present illness Narrative* Wendy Solomon Tech (Tech) - 09/25/2020 2:10 PM EDT Radiology Service [...] 25, 2020 2:08 PM documented in this encounterChillicothe Hospital06-18-2013 History of Past illness Narrative* Problem [...] of this encounter (statuses as of 09/23/2021) [facility] Narrative* Problem [...] of this encounter (statuses as of 12/10/2021) [facility] Narrative* Problem [...] of this encounter (statuses as of 12/25/2021) [facility] Narrative* Problem [...] of this encounter (statuses as of 01/16/2022) [facility] Narrative* Problem [...] of this encounter (statuses as of 01/18/2022) [facility] Narrative* Problem [...] of this encounter (statuses as of 01/25/2022) [facility] Narrative* Problem [...] of this encounter (statuses as of 02/21/2022) [facility] Narrative* Problem [...] of this encounter (statuses as of 03/10/2022) [facility] Narrative* Problem [...] of this encounter (statuses as of 03/12/2022) [facility] Narrative* Problem [...] of this encounter (statuses as of 03/14/2022) [facility] Narrative* Problem [...] of this encounter (statuses as of 03/20/2022) [facility] Narrative* Problem [...] of this encounter (statuses as of 03/21/2022) [facility] Narrative* Problem [...] of this encounter (statuses as of 04/02/2022) [facility] Narrative* Problem [...] of this encounter (statuses as of 04/02/2022) [facility] Narrative* Problem [...] of this encounter (statuses as of 04/02/2022) [facility] Narrative* Problem [...] of this encounter (statuses as of 04/04/2022) [facility] Narrative* Problem [...] of this encounter (statuses as of 04/10/2022) [facility] Narrative* Problem [...] of this encounter (statuses as of 04/10/2022) [facility] Narrative* Problem [...] of this encounter (statuses as of 04/11/2022) [facility] Narrative* Problem [...] of this encounter (statuses as of 04/14/2022) [facility] N[facility]ative* Problem [...] of this encounter (statuses as of 04/21/2022) [facility] N[facility]ative* Problem [...] of this encounter (statuses as of 05/07/2022) [facility] N[facility]* Problem [...] of this encounter (statuses as of 06/13/2022) [facility] N[facility]ative* Problem [...] of this encounter (statuses as of 07/03/2022) [facility] Narrative* Problem [...] of this encounter (statuses as of 07/03/2022) [facility] N[facility]ative* Problem [...] of this encounter (statuses as of 08/05/2022) [facility] N[facility]* Problem [...] of this encounter (statuses as of 09/10/2022) [facility] N[facility]* Problem [...] of this encounter (statuses as of 10/09/2022) [facility] N[facility]* Problem [...] of this encounter (statuses as of 10/11/2022) [facility] N[facility]* Problem [...] of this encounter (statuses as of 12/17/2022) [facility] N[facility]ative* Problem [...] of this encounter (statuses as of 01/08/2023) [facility] HospitalDis[facility] summary Author Nirav Cain [facility] Note Date/Time October 13, 2024 10: 38am [facility] Medical Records Department [address] [place] [address] Instructions for Home/Discharge Instructions 10/13/24 1034 MR#: [id number] Acct: [id number] Name: REINIER ELIZABETH Rep #:[id number] : [id number] 88 From: Nirav ellis MD [...] Prolia 60 mg/mL syringe 60 mg subcut [id number] Patient Comments: STARTS END UP SEPTEMBER. mecobalamin [...] MD; Dr. Jake Kingston MD ~ Signed [facility] Work Phone: evaluation note* Diagnosis Encounter for Medicare annual wellness exam- Primary Routine general medical examination at a health care facility Mixed hyperlipidemia Essential hypertension Unspecified essential hypertension Hypothyroidism, unspecified type [facility] Diagnosis Hypertensive kidney disease with stage 3b chronic kidney disease (HCC)- Primary documented in this encounter [facility] note* Diagnosis History of osteoporosis- Primary Personal history of other musculoskeletal disorders 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 documented in this encounter [facility] note* Diagnosis Anemia, unspecified type- Primary Positive fecal occult blood test Nonspecific abnormal finding in stool contents documented in this encounter [facility] note* Diagnosis Onset Date Resolution Status Anemia acute Positive occult stool blood test acute [facility] Work Phone: evaluation note* Diagnosis Onset Date Resolution Status Anemia acute Positive occult stool blood test acute Atrial fibrillation, new onset acute Essential hypertension acute Non-ST elevated myocardial infarction acute HLD (hyperlipidemia) chronic Chest pain resolved [facility] Work Phone: Evaluation note* Diagnosis Sweating profusely- Primary Generalized hyperhidrosis Essential hypertension Unspecified essential hypertension Hypotension, unspecified hypotension type Chest pain, unspecified type Diarrhea, unspecified type documented in this encounter [facility] note* Diagnosis Onset Date Resolution Status Anemia acute Positive occult stool blood test acute Anemia acute Atrial fibrillation, new onset acute Elevated troponin acute Essential hypertension acute Non-ST elevated myocardial infarction acute HLD (hyperlipidemia) chronic Chest pain resolved [facility] Work Phone: Evaluation note* Diagnosis Essential hypertension- Primary Unspecified essential hypertension Hypothyroidism, unspecified type Persistent atrial fibrillation (HCC) Atrial fibrillation Other fatigue documented in this encounter [facility] note* Diagnosis Nausea Nausea alone documented in this encounter [facility] note* Diagnosis Acute cough- Primary Nausea Nausea alone Diarrhea, unspecified type Fatigue, unspecified type Anemia, unspecified type documented in this encounter [facility] note* Diagnosis Onset Date Resolution Status Positive occult stool blood test acute Atrial fibrillation, new onset acute Essential hypertension chron ic HLD (hyperlipidemia) chronic Chest pain resolved Elevated troponin resolved Non-ST elevated myocardial infarction resolved Atrial fibrillation, new onset acute Dyspnea on exertion acute Essential hypertension chron ic HLD (hyperlipidemia) chronic Syncope chronic [facility] Work Phone: Evaluation note* Diagnosis Diarrhea, unspecified type- Primary documented in this encounter [facility] note* Diagnosis Acute cough- Primary Hypokalemia Hypopotassemia Shortness of breath Nausea Nausea alone Edema of both lower extremities documented in this encounter [facility] note* Diagnosis Congestive heart failure, unspecified HF chronicity, unspecified heart failure type (HCC)- Primary Essential hypertension Unspecified essential hypertension Mixed hyperlipidemia Pedal edema Edema Acute cough Hypokalemia Hypopotassemia Hypothyroidism, unspecified type [facility]* Diagnosis Acute cough- Primary documented in this encounter [facility] note* Diagnosis Hypotension, unspecified hypotension type- Primary GERI (acute kidney injury) (HCC) Acute kidney failure, unspecified documented in this encounter [facility] note* Diagnosis Anemia, unspecified type- Primary documented in this encounter [facility] note* Diagnosis Pleural effusion- Primary Unspecified pleural effusion Hypothyroidism, unspecified type Atelectasis Pulmonary collapse History of recent pneumonia Need for influenza vaccination Need for prophylactic vaccination and inoculation against influenza Anemia, unspecified type Congestive heart failure, unspecified HF chronicity, unspecified heart failure type (HCC) Stage 3b chronic kidney disease (HCC) documented in this encounter [facility] note* Diagnosis Onset Date Resolution Status Positive [...] hypertension chron ic HLD (hyperlipidemia) chronic Syncope [facility] Work Phone: Evaluation note* Diagnosis Onset [...] acute Lymphedema of both lower extremities acute [facility] Work Phone: Evaluation note* Diagnosis Onset [...] Essential hypertension chron ic HLD (hyperlipidemia) chronic [facility] Work Phone: Evaluation note* Diagnosis Pulmonary hypertension (HCC)- Primary Other chronic pulmonary heart diseases Pedal edema Edema Permanent atrial fibrillation (HCC) Atrial fibrillation Mixed hyperlipidemia Hypertensive kidney disease with stage 3b chronic kidney disease (HCC) Essential hypertension Unspecified essential hypertension Stage 3a chronic kidney disease (HCC) [facility]* Diagnosis Onset Date Resolution Status [...] bleed resolved Hypokalemia resolved Renal insufficiency resolved [facility] Work Phone: Evaluation note* Diagnosis Onset [...] Atrial fibrillation, new onset acute Syncope chronic [facility] Work Phone: Evaluation note* Diagnosis Onset [...] failure) acute HLD (hyperlipidemia) acute Essential hypertension [facility] Work Phone: Evaluation note* Diagnosis Onset [...] failure) acute HLD (hyperlipidemia) acute Essential hypertension [facility] Work Phone: Evaluation note* Diagnosis Anemia, unspecified type- Primary Essential hypertension Unspecified essential hypertension Permanent atrial fibrillation (HCC) Atrial fibrillation Hypothyroidism, unspecified type Fatigue, unspecified type [facility]* Diagnosis Onset Date Resolution Status CHF (congestive heart failure) acute HLD (hyperlipidemia) acute Essential hypertension chron ic CHF (congestive heart failure) acute HLD (hyperlipidemia) acute Essential hypertension chron ic [facility] Work Phone: Evaluation note* Diagnosis Onset Date Resolution Status CHF (congestive heart failure) acute HLD (hyperlipidemia) acute Essential hypertension chron ic Anemia acute Positive occult stool blood test acute Upper GI bleed resolved [facility] Work Phone: Evaluation note* Diagnosis Essential hypertension- Primary Unspecified essential hypertension 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, subsequent encounter documented [facility]* Diagnosis Permanent atrial fibrillation (HCC)- Primary Atrial fibrillation At risk for stroke Other specified personal history presenting hazards to health Anticoagulant long-term use Long-term (current) use of anticoagulants At risk for bleeding associated with anticoagulants History of GI bleed Personal history of other diseases of digestive system [facility]* Diagnosis Age related osteoporosis, unspecified pathological fracture presence- Primary [facility] Nausea Nausea alone [facility] Diagnosis Hypertensive kidney disease with stage 3b chronic kidney disease (HCC)- Primary Mixed hyperlipidemia Osteoporosis without current pathological fracture, unspecified osteoporosis type Mid back pain Backache, unspecified Hypothyroidism, unspecified type Elevated hemoglobin A1c Other abnormal blood chemistry Need for influenza vaccination Need for prophylactic vaccination and inoculation against influenza [facility] Diagnosis Hypertensive kidney disease with stage 3b chronic kidney disease (HCC)- Primary [facility]* Diagnosis 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, subsequent encounter [facility] Diagnosis Essential hypertension- Primary Unspecified essential hypertension [facility] Diagnosis Hypertensive kidney disease with stage 3b chronic kidney disease (HCC) [facility] Diagnosis Onset Date Resolution Status Osteoporosis chronic Anemia acute Back pain acute Elevated troponin acute Fall acute Foot pain, bilateral acute Hyperglycemia acute Hypoxia acute Syncope chronic Chronic kidney disease chron [facility] Work Phone: Evaluation note* Diagnosis Hypertensive kidney disease with stage 3b chronic kidney disease (HCC)- Primary Essential hypertension Unspecified essential hypertension Anemia, unspecified type [facility]* Diagnosis Onset Date Resolution Status Osteoporosis chronic Anemia acute Back pain acute Elevated troponin acute Fall acute Foot pain, bilateral acute Hyperglycemia acute Hypoxia acute Chronic kidney disease chron ic Syncope resolved CHF (congestive heart failure) acute HLD (hyperlipidemia) acute Essential hypertension [facility] Work Phone: Evaluation note* Diagnosis Perineal rash in female- Primary Rash and other nonspecific skin eruption [facility]* Diagnosis Onset Date Resolution Status Anemia acute Back pain acute Elevated troponin acute Fall acute Foot pain, bilateral acute Hyperglycemia acute Hypoxia acute Chronic kidney disease chron ic Syncope resolved CHF (congestive heart failure) acute HLD (hyperlipidemia) acute Essential hypertension chron ic Osteoporosis chronic CHF (congestive heart failure) acute HLD (hyperlipidemia) acute Essential hypertension [facility] Work Phone: Evaluation note* Diagnosis Mixed incontinence- Primary Mixed 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) Anemia, unspecified type Essential hypertension Unspecified essential hypertension Need for vaccination Need for prophylactic vaccination and inoculation against unspecified single disease Pulmonary hypertension (HCC) Other chronic pulmonary heart diseases Permanent atrial fibrillation (HCC) Atrial fibrillation Bilateral hearing loss, unspecified hearing loss type [facility] Diagnosis HYPERTENSION NOS- Primary Unspecified essential [...] pain Backache, unspecified [facility] Diagnosis HYPERTENSION NOS- Primary Unspecified [...] pain Backache, unspecified [facility] Diagnosis HYPERTENSION NOS- Primary Unspecified [...] hyperlipidemia Mixed hyperlipidemia [facility] Diagnosis HYPERTENSION NOS- Primary Unspecified [...] kidney disease (HCC) [facility] Diagnosis HYPERTENSION NOS- Primary Unspecified [...] Hypothyroidism, unspecified type [facility] Diagnosis HYPERTENSION NOS- Primary Unspecified [...] hyperlipidemia Dysuria- Primary [facility] Diagnosis HYPERTENSION NOS- Primary Unspecified [...] Urinary frequency- Primary [facility] Diagnosis HYPERTENSION NOS- Primary Unspecified [...] Hypothyroidism, unspecified type [facility] Diagnosis HYPERTENSION NOS- Primary Unspecified essential [...] (HCC) Atrial fibrillation [facility]* Diagnosis HYPERTENSION NOS- Primary Unspecified [...] casts in urine [facility] Diagnosis HYPERTENSION NOS- Primary Unspecified essential [...] hyperlipidemia Dysuria- Primary [facility]* Diagnosis HYPERTENSION NOS- Primary Unspecified essential [...] (HCC) Atrial fibrillation [facility]* Diagnosis HYPERTENSION NOS- Primary Unspecified essential [...] hypertension Unspecified essential hypertension Diarrhea, unspecified type 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 Long-term (current) use of anticoagulants [facility] Diagnosis HYPERTENSION NOS- Primary Unspecified [...] Other B-complex deficiencies [facility] Diagnosis HYPERTENSION NOS- Primary Unspecified [...] Abnormal chest sounds [facility] [...] of other medications [facility] Diagnosis HYPERTENSION NOS- Primary Unspecified essential [...] Nausea Nausea alone [facility] Diagnosis HYPERTENSION NOS- Primary Unspecified essential [...] kidney disease (HCC) [facility] Diagnosis HYPERTENSION NOS- Primary Unspecified essential [...] (HCC) Atrial fibrillation [facility] Additional Instructions Watch her salt intake. Drink enough fluids to urinate regularly throughout the day on days that you do not take the Lasix. Follow-up closely with your primary care doctor and [facility] for cardiology. Return to the emergency room if you develop worsening symptoms, difficulty breathing or fevers.[facility] Work Phone: Hospital Discharge instructions Additional Instructions Increase your carvedilol to 6.25 mg twice a day. You can either double up on your existing medication of 3.125 mg, or grain picker the new prescription. Continued your Xarelto. [facility] Work Phone: Reason for referral (narrative)* Diagnostic Procedure Only (Routine) - Closed Specialty Diagnoses / Procedures Referred By Contac t Referred To Contact XR IMAGING Diagnoses Osteoporosis without current pathological fracture, unspecified osteoporosis type Mid back pain Procedures XR THORACIC GENERAL 3V AP/LAT/SWIMMERS RADEX SPINE THORACIC 3 VIEWS Silvio Drake APRN.INJECTOR ASSEMBLER [address] [place] [address] [place] [address] Referral ID Status Reason Start Date Expiration Date V isits Requested Visits Authorized [id number] Closed Auto-Generate d Referral 04/09/2023 05/08/2024 1 1 [facility] for referral (narrative)* Diagnostic Procedure Only (Routine) - Closed Specialty Diagnoses / Procedures Referred By Contac t Referred To Contact XR IMAGING Diagnoses Osteoporosis without current pathological fracture, unspecified osteoporosis type Mid back pain Procedures XR THORACIC GENERAL 3V AP/LAT/SWIMMERS RADEX SPINE THORACIC 3 VIEWS Silvio Drake APRN.INJECTOR ASSEMBLER [address] [place] [address] [place] [address] Referral ID Status Reason Start Date Expiration Date V isits Requested Visits Authorized [id number] Closed Auto-Generate d Referral 04/09/2023 05/08/2024 1 1 [facility] for referral (narrative)* Outpatient Procedure (Routine) - Authorized Specialty Diagnoses / Procedures Referred By Contac t Referred To Contact [facility] Diagnoses Exercise-induced leg fatigue Procedures PVR ANK PRESS W/EXC RIO VAS LAB NON-INVAS PHYSIOLOGIC STD EXTREMITY ART 2 LEVEL Anay Schuler MD [address] [place] [address] [facility] [place] [address] [place] [id number] Referral ID Status Reason Start Date Expiration Date Visits Requested Visits Authorized [id number] Authorized Auto-Generat ed Referral 08/02/2024 08/02/2025 1 1 * Outpatient Procedure (Routine) - Authorized Specialty Diagnoses / Procedures Referred By Contac t Referred To Contact [facility] [place] Diagnoses Exercise-induced leg fatigue Procedures PVR ANK PRESS RIO VAS LAB NON-INVAS PHYSIOLOGIC STD EXTREMITY ART 2 LEVEL Anay Schuler MD [address] [place] [address] [facility] [address] [address] Referral ID Status Reason Start Date Expiration Date Visits Requested Visits Authorized [id number] Authorized Auto-Generat ed Referral 08/02/2024 08/02/2025 1 1 [facility] for referral (narrative)No reason for referral information [facility]WMer[facility] Work Phone: Reason for visit Narrative* Diagnostic Procedure Only (Routine) - Closed Specialty Diagnoses / Procedures Referred By Contac t Referred To Contact XR IMAGING Diagnoses Osteoporosis without current pathological fracture, unspecified osteoporosis type Mid back pain Procedures XR THORACIC GENERAL 3V AP/LAT/SWIMMERS RADEX SPINE THORACIC 3 VIEWS Silvio Drake APRN.INJECTOR ASSEMBLER [address] [place] [address] [place] [id number] Referral ID Status Reason Start Date Expiration Date V isits Requested Visits Authorized [id number] Closed Auto-Generate d Referral 04/09/2023 05/08/2024 1 1 [facility] Reason for Referral Specialty Diagnoses / Procedures Referred By Contac t Referred To Contact Gastroenterology Diagnoses Anemia, unspecified type Positive fecal occult blood test Procedures CONSULT TO GASTROENTEROLOGY OFFICE/OUTPATIENT [facility] 60-74 MINUTES Older, APRN. ToshiaINJECTOR ASSEMBLER [address] [place] [address] Referral ID Status Reason Start Date Expiration Date Visits Requested Visits Authorized [id number] Authorized PCP Requested Referral 01/17/2022 01/17/2023 1 1 Specialty Diagnoses / Procedures Referred By Contac t Referred To Contact General Surgery Diagnoses Anemia, unspecified type Positive fecal occult blood test Procedures CONSULT TO GENERAL SURGERY OFFICE/OUTPATIENT [facility] 60-74 MINUTES Older, APRN. ToshiaINJECTOR ASSEMBLER [address] [place] [address] Referral ID Status Reason Start Date Expiration Date Visits Requested Visits Authorized [id number] Authorized PCP Requested Referral 01/15/2022 01/15/2023 1 1 Specialty Diagnoses / Procedures Referred By Contac t Referred To Contact Endocrinology Diagnoses Age related osteoporosis, unspecified pathological fracture presence Procedures CONSULT TO ENDOCRINOLOGY OFFICE/OUTPATIENT [facility] 60-74 MINUTES Older, APRN. SilvioINJECTOR ASSEMBLER [address] [place] [address] Referral ID Status Reason Start Date Expiration Date Visits Requested Visits Authorized [id number] Authorized PCP Requested Referral 02/02/2023 02/02/2024 1 1 Specialty Diagnoses / Procedures Referred By Contac t Referred To Contact Diagnoses Bilateral hearing loss, unspecified hearing loss type Procedures HEARING TEST/AUDIOGRAM COMPRE AUDIOMETRY THRESHOLD SHAGUFTAAL Anay Ramos MD [address] [place] [address] [facility] [address] [place] [address] Referral ID Status Reason Start Date Expiration Date Visits Requested Visits Authorized [id number] New Request Auto-Generat ed Referral 01/11/2024 04/10/2024 [...] 24, 2024 2:16pm Atrial fibrillation with RVR Jazmín 28th, 2025 2:16pm GERI (acute kidney injury) October 30, [...] No February 04, 2018 2:47pm Power of Trauma Counsellor No February 04 2:47pm Advance Directive Response Recorded Date/ Time Name of Medical Power of Trauma Counsellor daughter February 21, 2022 6:31pm Living Will Yes February 21 6:31pm Power of Trauma Counsellor Yes February 21 6:31pm Advance Directive Response Recorded Date/ Time Name of Medical Power of Trauma Counsellor daughter February 21, 2022 6:31pm Living Will No April 04 12:50pm Power of Trauma Counsellor No April 04 022 12:50pm Advance Directive Response Recorded Date/ Time Name of Medical Power of Trauma Counsellor daughter February 21, 2022 6:31pm Name of Medical Power of Trauma Counsellor Murtaza April 24, 2022 2:51pm Living Will Yes April 24 2:51pm Power of Trauma Counsellor Yes April 24, 2022 2:51pm Advance Directive Response Recorded Date/ Time Name of Medical Power of Trauma Counsellor daughter February 21, 2022 6:31pm Name of Medical Power of Trauma Counsellor Murtaza April 24, 2022 2:51pm Name of Medical Power of Trauma Counsellor Murtaza May 01, 2022 6:43pm Living Will Yes May 01 6:43pm Power of Trauma Counsellor Yes May 01, 2022 6:43pm Advance Directive Response Recorded Date/ Time Name of Medical Power of Trauma Counsellor daughter February 21, 2022 5:31pm Name of Medical Power of Trauma Counsellor Murtaza April 24, 2022 1:51pm Name of Medical Power of Trauma Counsellor murtaza bates daughter May 01, 2022 8:54pm Living Will Yes May 01 8:54pm Power of Trauma Counsellor Yes May 01, 2022 8:54pm Advance Directive Response Recorded Date/ Time Name of Medical Power of Trauma Counsellor daughter February 21, 2022 5:31pm Name of Medical Power of Trauma Counsellor Murtaza April 24, 2022 1:51pm Name of Medical Power of Trauma Counsellor murtaza bates daughter May 01, 2022 8:54pm Name of Medical Power of Trauma Counsellor Murtaza Bates June 04, 2022 9:52am Living Will Yes June 04 9:52am Power of Trauma Counsellor Yes June 04, 2022 9:52am Advance Directive Response Recorded Date/ Time Name of Medical Power of Trauma Counsellor Murtaza April 24, 2022 1:51pm Name of Medical Power of Trauma Counsellor murtaza garciaaptatiana daughter May 01, 2022 8:54pm Name of Medical Power of Trauma Counsellor Murtaza Garciaaptatiana June 04, 2022 9:52am Living Will Yes June 04 9:52am Power of Trauma Counsellor Yes Gregorio 7th, 2022 9:52am Advance Directive Response Recorded Date/ Time Name of Medical Power of Trauma Counsellor Murtaza Bates June 04, 2022 10:52am Living Will Yes June 04 10:52am Power of Trauma Counsellor Yes June 04, 2022 10:52am Advance Directive Response Recorded Date/ Time Name of Medical Power of Trauma Counsellor DAUGHTER October 28, 2022 2:34pm Living Will Yes October 28, 2022 2: 34pm Power of Trauma Counsellor Yes October 28, 2022 2:34pm Advance Directive Response Recorded Date/ Time Name of Medical Power of Trauma Counsellor daughter July 13, 2023 11:34am Living Will Yes July 13 11:34am Power of Trauma Counsellor Yes July 13, 2023 11:34am Advance Directive Response Recorded Date/ Time Name of Medical Power of Trauma Counsellor Murtaza (austene r) July 13, 2023 4:31pm Living Will Yes July 13 4:31pm Power of Trauma Counsellor Yes July 13, 2023 4:31pm Advance Directive Response Recorded Date/ Time Name of Medical Power of Trauma Counsellor Murtaza (austene r) July 13, 2023 5:31pm Living Will Yes July 13 5:31pm Power of Trauma Counsellor Yes July 13, 2023 5:31pm Advance Directive Response Recorded Date/ Time Living Will Yes October 28, 2022 2: 34pm Do you have a Healthcare Power of Trauma Counsellor? Yes October 28, 2022 2:34pm Living Will Yes October 11, 2024 11:40am Do you have a Healthcare Power of Trauma Counsellor? Yes October 11, 2024 11:40am Name of Medical Power of Trauma Counsellor murtaza October 11, 2024 11:40am Living Will Yes August 27, 2024 12:58am Do you have a Healthcare Power of Trauma Counsellor? Yes August 27, 2024 12:58am Name of Medical Power of Trauma Counsellor Pt unaware August 27, 2024 12:58am Advance Directive Response Recorded Date/ Time Living Will Yes October 11, 2024 4:03pm Do you have a Healthcare Power of Trauma Counsellor? Yes October 11, 2024 4:03pm Name of Medical Power of Trauma Counsellor murtaza bates October 11, 2024 4:03pm Living Will Yes August 27, 2024 12:58am Do you have a Healthcare Power of Trauma Counsellor? Yes August 27, 2024 12:58am Name of Medical Power of Trauma Counsellor Pt unaware August 27, 2024 12:58am Advance Directive Response Recorded Date/ Time Living Will Yes October 11, 2024 4:03pm Do you have a Healthcare Power of Trauma Counsellor? Yes October 11, 2024 4:03pm Name of Medical Power of Trauma Counsellor murtaza gallapoo October 11, 2024 4:03pm Do you have a Healthcare Power of Trauma Counsellor? No October 30, 2024 6:29pm Living Will Yes August 27, 2024 12:58am Do you have a Healthcare Power of Trauma Counsellor? Yes August 27, 2024 12:58am Name of Medical Power of Trauma Counsellor Pt unaware August 27, 2024 12:58am Advance Directive Response Recorded Date/ Time Living Will Yes October 11, 2024 4:03pm Do you have a Healthcare Power of Trauma Counsellor? Yes October 11, 2024 4:03pm Name of Medical Power of Trauma Counsellor murtaza gallapoo October 11, 2024 4:03pm Do you have a Healthcare Power of Trauma Counsellor? No October 30, 2024 6:29pm Do you have a Healthcare Power of Trauma Counsellor? Yes November 19, 2024 9:23am Living Will Yes August 27, 2024 12:58am Do you have a Healthcare Power of Trauma Counsellor? Yes August 27, 2024 12:58am Name of Medical Power of Trauma Counsellor Pt unaware August 27, 2024 12:58am Advance Directive Response Recorded Date/ Time Living Will Yes October 11, 2024 4:03pm Do you have a Healthcare Power of Trauma Counsellor? Yes October 11, 2024 4:03pm Name of Medical Power of Trauma Counsellor murtaza gallapoo October 11, 2024 4:03pm Do you have a Healthcare Power of Trauma Counsellor? No October 30, 2024 6:29pm Do you have a Healthcare Power of Trauma Counsellor? Yes November 19, 2024 9:23am Advance Directive Response Recorded Date/ Time Do you have a Healthcare Power of Trauma Counsellor? No October 30, 2024 6:29pm Do you have a Healthcare Power of Trauma Counsellor? Yes November 19, 2024 9:23am Advance Directive Response Recorded Date/ Time Do you have a Healthcare Power of Trauma Counsellor? Yes November 19, 2024 9:23am Summary Purpose Additional Source Comments Source Comments (unrecognize d section and content) In the event this informatio n is protected by the Federal Confidentiality of Alcohol and Drug Abuse Patient Records regulations: The Federal rules restrict any use of the information to criminally investigate or prosecute any alcohol or drug abuse patient.[facility] the event this information is protected by the Federal Confidentiality of Alcohol and Drug Abuse Patient Records regulations: The Federal rules restrict any use of the information to criminally investigate or prosecute any alcohol or drug abuse patient.[facility] HospitalIn the event this information is protected by the Federal Confidentiality of Alcohol and Drug Abuse Patient Records regulations: The Federal rules restrict any use of the information to criminally investigate or prosecute any alcohol or drug abuse patient.[facility] HospitalIn the event this information is protected by the Federal Confidentiality of Alcohol and Drug Abuse Patient Records regulations: The Federal rules restrict any use of the information to criminally investigate or prosecute any alcohol or drug abuse patient.[facility] HospitalIn the event this information is protected by the Federal Confidentiality of Alcohol and Drug Abuse Patient Records regulations: The Federal rules restrict any use of the information to criminally investigate or prosecute any alcohol or drug abuse patient.[facility] HospitalIn the event this information is protected by the Federal Confidentiality of Alcohol and Drug Abuse Patient Records regulations: The Federal rules restrict any use of the information to criminally investigate or prosecute any alcohol or drug abuse patient.[facility] HospitalIn the event this information is protected by the Federal Confidentiality of Alcohol and Drug Abuse Patient Records regulations: The Federal rules restrict any use of the information to criminally investigate or prosecute any alcohol or drug abuse patient.[facility] HospitalIn the event this information is protected by the Federal Confidentiality of Alcohol and Drug Abuse Patient Records regulations: The Federal rules restrict any use of the information to criminally investigate or prosecute any alcohol or drug abuse patient.[facility] HospitalIn the event this information is protected by the Federal Confidentiality of Alcohol and Drug Abuse Patient Records regulations: The Federal rules restrict any use of the information to criminally investigate or prosecute any alcohol or drug abuse patient.[facility] HospitalIn the event this information is protected by the Federal Confidentiality of Alcohol and Drug Abuse Patient Records regulations: The Federal rules restrict any use of the information to criminally investigate or prosecute any alcohol or drug abuse patient.[facility] HospitalIn the event this information is protected by the Federal Confidentiality of Alcohol and Drug Abuse Patient Records regulations: The Federal rules restrict any use of the information to criminally investigate or prosecute any alcohol or drug abuse patient.[facility] HospitalIn the event this information is protected by the Federal Confidentiality of Alcohol and Drug Abuse Patient Records regulations: The Federal rules restrict any use of the information to criminally investigate or prosecute any alcohol or drug abuse patient.[facility] HospitalIn the event this information is protected by the Federal Confidentiality of Alcohol and Drug Abuse Patient Records regulations: The Federal rules restrict any use of the information to criminally investigate or prosecute any alcohol or drug abuse patient.[facility] HospitalIn the event this information is protected by the Federal Confidentiality of Alcohol and Drug Abuse Patient Records regulations: The Federal rules restrict any use of the information to criminally investigate or prosecute any alcohol or drug abuse patient.[facility] HospitalIn the event this information is protected by the Federal Confidentiality of Alcohol and Drug Abuse Patient Records regulations: The Federal rules restrict any use of the information to criminally investigate or prosecute any alcohol or drug abuse patient.[facility] ClinicIn the event this information is protected by the Federal Confidentiality of Alcohol and Drug Abuse Patient Records regulations: The Federal rules restrict any use of the information to criminally investigate or prosecute any alcohol or drug abuse patient.[facility] HospitalIn the event this information is protected by the Federal Confidentiality of Alcohol and Drug Abuse Patient Records regulations: The Federal rules restrict any use of the information to criminally investigate or prosecute any alcohol or drug abuse patient.[facility] HospitalIn the event this information is protected by the Federal Confidentiality of Alcohol and Drug Abuse Patient Records regulations: The Federal rules restrict any use of the information to criminally investigate or prosecute any alcohol or drug abuse patient.[facility] HospitalIn the event this information is protected by the Federal Confidentiality of Alcohol and Drug Abuse Patient Records regulations: The Federal rules restrict any use of the information to criminally investigate or prosecute any alcohol or drug abuse patient.[facility] HospitalIn the event this information is protected by the Federal Confidentiality of Alcohol and Drug Abuse Patient Records regulations: The Federal rules restrict any use of the information to criminally investigate or prosecute any alcohol or drug abuse patient.[facility] HospitalIn the event this information is protected by the Federal Confidentiality of Alcohol and Drug Abuse Patient Records regulations: The Federal rules restrict any use of the information to criminally investigate or prosecute any alcohol or drug abuse patient.[facility] HospitalIn the event this information is protected by the Federal Confidentiality of Alcohol and Drug Abuse Patient Records regulations: The Federal rules restrict any use of the information to criminally investigate or prosecute any alcohol or drug abuse patient.[facility] HospitalIn the event this information is protected by the Federal Confidentiality of Alcohol and Drug Abuse Patient Records regulations: The Federal rules restrict any use of the information to criminally investigate or prosecute any alcohol or drug abuse patient.[facility] HospitalIn the event this information is protected by the Federal Confidentiality of Alcohol and Drug Abuse Patient Records regulations: The Federal rules restrict any use of the information to criminally investigate or prosecute any alcohol or drug abuse patient.[facility] HospitalIn the event this information is protected by the Federal Confidentiality of Alcohol and Drug Abuse Patient Records regulations: The Federal rules restrict any use of the information to criminally investigate or prosecute any alcohol or drug abuse patient.[facility] HospitalIn the event this information is protected by the Federal Confidentiality of Alcohol and Drug Abuse Patient Records regulations: The Federal rules restrict any use of the information to criminally investigate or prosecute any alcohol or drug abuse patient.[facility] HospitalIn the event this information is protected by the Federal Confidentiality of Alcohol and Drug Abuse Patient Records regulations: The Federal rules restrict any use of the information to criminally investigate or prosecute any alcohol or drug abuse patient.[facility] HospitalIn the event this information is protected by the Federal Confidentiality of Alcohol and Drug Abuse Patient Records regulations: The Federal rules restrict any use of the information to criminally investigate or prosecute any alcohol or drug abuse patient.[facility] HospitalIn the event this information is protected by the Federal Confidentiality of Alcohol and Drug Abuse Patient Records regulations: The Federal rules restrict any use of the information to criminally investigate or prosecute any alcohol or drug abuse patient.[facility] HospitalIn the event this information is protected by the Federal Confidentiality of Alcohol and Drug Abuse Patient Records regulations: The Federal rules restrict any use of the information to criminally investigate or prosecute any alcohol or drug abuse patient.[facility] HospitalIn the event this information is protected by the Federal Confidentiality of Alcohol and Drug Abuse Patient Records regulations: The Federal rules restrict any use of the information to criminally investigate or prosecute any alcohol or drug abuse patient.[facility] HospitalIn the event this information is protected by the Federal Confidentiality of Alcohol and Drug Abuse Patient Records regulations: The Federal rules restrict any use of the information to criminally investigate or prosecute any alcohol or drug abuse patient.[facility] HospitalIn the event this information is protected by the Federal Confidentiality of Alcohol and Drug Abuse Patient Records regulations: The Federal rules restrict any use of the information to criminally investigate or prosecute any alcohol or drug abuse patient.[facility] HospitalIn the event this information is protected by the Federal Confidentiality of Alcohol and Drug Abuse Patient Records regulations: The Federal rules restrict any use of the information to criminally investigate or prosecute any alcohol or drug abuse patient.[facility] HospitalIn the event this information is protected by the Federal Confidentiality of Alcohol and Drug Abuse Patient Records regulations: The Federal rules restrict any use of the information to criminally investigate or prosecute any alcohol or drug abuse patient.[facility] HospitalIn the event this information is protected by the Federal Confidentiality of Alcohol and Drug Abuse Patient Records regulations: The Federal rules restrict any use of the information to criminally investigate or prosecute any alcohol or drug abuse patient.[facility] HospitalIn the event this information is protected by the Federal Confidentiality of Alcohol and Drug Abuse Patient Records regulations: The Federal rules restrict any use of the information to criminally investigate or prosecute any alcohol or drug abuse patient.[facility] HospitalIn the event this information is protected by the Federal Confidentiality of Alcohol and Drug Abuse Patient Records regulations: The Federal rules restrict any use of the information to criminally investigate or prosecute any alcohol or drug abuse patient.[facility] HospitalIn the event this information is protected by the Federal Confidentiality of Alcohol and Drug Abuse Patient Records regulations: The Federal rules restrict any use of the information to criminally investigate or prosecute any alcohol or drug abuse patient.[facility] HospitalIn the event this information is protected by the Federal Confidentiality of Alcohol and Drug Abuse Patient Records regulations: The Federal rules restrict any use of the information to criminally investigate or prosecute any alcohol or drug abuse patient.[facility] HospitalIn the event this information is protected by the Federal Confidentiality of Alcohol and Drug Abuse Patient Records regulations: The Federal rules restrict any use of the information to criminally investigate or prosecute any alcohol or drug abuse patient.[facility] HospitalIn the event this information is protected by the Federal Confidentiality of Alcohol and Drug Abuse Patient Records regulations: The Federal rules restrict any use of the information to criminally investigate or prosecute any alcohol or drug abuse patient.[facility] HospitalIn the event this information is protected by the Federal Confidentiality of Alcohol and Drug Abuse Patient Records regulations: The Federal rules restrict any use of the information to criminally investigate or prosecute any alcohol or drug abuse patient.[facility] HospitalIn the event this information is protected by the Federal Confidentiality of Alcohol and Drug Abuse Patient Records regulations: The Federal rules restrict any use of the information to criminally investigate or prosecute any alcohol or drug abuse patient.[facility] HospitalIn the event this information is protected by the Federal Confidentiality of Alcohol and Drug Abuse Patient Records regulations: The Federal rules restrict any use of the information to criminally investigate or prosecute any alcohol or drug abuse patient.[facility] HospitalIn the event this information is protected by the Federal Confidentiality of Alcohol and Drug Abuse Patient Records regulations: The Federal rules restrict any use of the information to criminally investigate or prosecute any alcohol or drug abuse patient.[facility] HospitalIn the event this information is protected by the Federal Confidentiality of Alcohol and Drug Abuse Patient Records regulations: The Federal rules restrict any use of the information to criminally investigate or prosecute any alcohol or drug abuse patient.[facility] HospitalIn the event this information is protected by the Federal Confidentiality of Alcohol and Drug Abuse Patient Records regulations: The Federal rules restrict any use of the information to criminally investigate or prosecute any alcohol or drug abuse patient.[facility] HospitalIn the event this information is protected by the Federal Confidentiality of Alcohol and Drug Abuse Patient Records regulations: The Federal rules restrict any use of the information to criminally investigate or prosecute any alcohol or drug abuse patient.[facility] HospitalIn the event this information is protected by the Federal Confidentiality of Alcohol and Drug Abuse Patient Records regulations: The Federal rules restrict any use of the information to criminally investigate or prosecute any alcohol or drug abuse patient.[facility] HospitalIn the event this information is protected by the Federal Confidentiality of Alcohol and Drug Abuse Patient Records regulations: The Federal rules restrict any use of the information to criminally investigate or prosecute any alcohol or drug abuse patient.[facility] HospitalIn the event this information is protected by the Federal Confidentiality of Alcohol and Drug Abuse Patient Records regulations: The Federal rules restrict any use of the information to criminally investigate or prosecute any alcohol or drug abuse patient.[facility] HospitalIn the event this information is protected by the Federal Confidentiality of Alcohol and Drug Abuse Patient Records regulations: The Federal rules restrict any use of the information to criminally investigate or prosecute any alcohol or drug abuse patient.[facility] HospitalIn the event this information is protected by the Federal Confidentiality of Alcohol and Drug Abuse Patient Records regulations: The Federal rules restrict any use of the information to criminally investigate or prosecute any alcohol or drug abuse patient.[facility] HospitalIn the event this information is protected by the Federal Confidentiality of Alcohol and Drug Abuse Patient Records regulations: The Federal rules restrict any use of the information to criminally investigate or prosecute any alcohol or drug abuse patient.[facility] HospitalIn the event this information is protected by the Federal Confidentiality of Alcohol and Drug Abuse Patient Records regulations: The Federal rules restrict any use of the information to criminally investigate or prosecute any alcohol or drug abuse patient.[facility] HospitalIn the event this information is protected by the Federal Confidentiality of Alcohol and Drug Abuse Patient Records regulations: The Federal rules restrict any use of the information to criminally investigate or prosecute any alcohol or drug abuse patient.[facility] HospitalIn the event this information is protected by the Federal Confidentiality of Alcohol and Drug Abuse Patient Records regulations: The Federal rules restrict any use of the information to criminally investigate or prosecute any alcohol or drug abuse patient.[facility] HospitalIn the event this information is protected by the Federal Confidentiality of Alcohol and Drug Abuse Patient Records regulations: The Federal rules restrict any use of the information to criminally investigate or prosecute any alcohol or drug abuse patient.[facility] HospitalIn the event this information is protected by the Federal Confidentiality of Alcohol and Drug Abuse Patient Records regulations: The Federal rules restrict any use of the information to criminally investigate or prosecute any alcohol or drug abuse patient.[facility] HospitalIn the event this information is protected by the Federal Confidentiality of Alcohol and Drug Abuse Patient Records regulations: The Federal rules restrict any use of the information to criminally investigate or prosecute any alcohol or drug abuse patient.[facility] HospitalIn the event this information is protected by the Federal Confidentiality of Alcohol and Drug Abuse Patient Records regulations: The Federal rules restrict any use of the information to criminally investigate or prosecute any alcohol or drug abuse patient.[facility] HospitalIn the event this information is protected by the Federal Confidentiality of Alcohol and Drug Abuse Patient Records regulations: The Federal rules restrict any use of the information to criminally investigate or prosecute any alcohol or drug abuse patient.[facility] HospitalIn the event this information is protected by the Federal Confidentiality of Alcohol and Drug Abuse Patient Records regulations: The Federal rules restrict any use of the information to criminally investigate or prosecute any alcohol or drug abuse patient.[facility] HospitalIn the event this information is protected by the Federal Confidentiality of Alcohol and Drug Abuse Patient Records regulations: The Federal rules restrict any use of the information to criminally investigate or prosecute any alcohol or drug abuse patient.[facility] ClinicIn the event this information is protected by the Federal Confidentiality of Alcohol and Drug Abuse Patient Records regulations: The Federal rules restrict any use of the information to criminally investigate or prosecute any alcohol or drug abuse patient.[facility] HospitalIn the event this information is protected by the Federal Confidentiality of Alcohol and Drug Abuse Patient Records regulations: The Federal rules restrict any use of the information to criminally investigate or prosecute any alcohol or drug abuse patient.[facility] HospitalIn the event this information is protected by the Federal Confidentiality of Alcohol and Drug Abuse Patient Records regulations: The Federal rules restrict any use of the information to criminally investigate or prosecute any alcohol or drug abuse patient.[facility] HospitalIn the event this information is protected by the Federal Confidentiality of Alcohol and Drug Abuse Patient Records regulations: The Federal rules restrict any use of the information to criminally investigate or prosecute any alcohol or drug abuse patient.[facility] HospitalIn the event this information is protected by the Federal Confidentiality of Alcohol and Drug Abuse Patient Records regulations: The Federal rules restrict any use of the information to criminally investigate or prosecute any alcohol or drug abuse patient.[facility] HospitalIn the event this information is protected by the Federal Confidentiality of Alcohol and Drug Abuse Patient Records regulations: The Federal rules restrict any use of the information to criminally investigate or prosecute any alcohol or drug abuse patient.[facility] HospitalIn the event this information is protected by the Federal Confidentiality of Alcohol and Drug Abuse Patient Records regulations: The Federal rules restrict any use of the information to criminally investigate or prosecute any alcohol or drug abuse patient.[facility] HospitalIn the event this information is protected by the Federal Confidentiality of Alcohol and Drug Abuse Patient Records regulations: The Federal rules restrict any use of the information to criminally investigate or prosecute any alcohol or drug abuse patient.[facility] HospitalIn the event this information is protected by the Federal Confidentiality of Alcohol and Drug Abuse Patient Records regulations: The Federal rules restrict any use of the information to criminally investigate or prosecute any alcohol or drug abuse patient.[facility] HospitalIn the event this information is protected by the Federal Confidentiality of Alcohol and Drug Abuse Patient Records regulations: The Federal rules restrict any use of the information to criminally investigate or prosecute any alcohol or drug abuse patient.[facility] HospitalIn the event this information is protected by the Federal Confidentiality of Alcohol and Drug Abuse Patient Records regulations: The Federal rules restrict any use of the information to criminally investigate or prosecute any alcohol or drug abuse patient.[facility] HospitalIn the event this information is protected by the Federal Confidentiality of Alcohol and Drug Abuse Patient Records regulations: The Federal rules restrict any use of the information to criminally investigate or prosecute any alcohol or drug abuse patient.[facility] HospitalIn the event this information is protected by the Federal Confidentiality of Alcohol and Drug Abuse Patient Records regulations: The Federal rules restrict any use of the information to criminally investigate or prosecute any alcohol or drug abuse patient.[facility] HospitalIn the event this information is protected by the Federal Confidentiality of Alcohol and Drug Abuse Patient Records regulations: The Federal rules restrict any use of the information to criminally investigate or prosecute any alcohol or drug abuse patient.[facility] HospitalIn the event this information is protected by the Federal Confidentiality of Alcohol and Drug Abuse Patient Records regulations: The Federal rules restrict any use of the information to criminally investigate or prosecute any alcohol or drug abuse patient.[facility] HospitalIn the event this information is protected by the Federal Confidentiality of Alcohol and Drug Abuse Patient Records regulations: The Federal rules restrict any use of the information to criminally investigate or prosecute any alcohol or drug abuse patient.[facility] HospitalIn the event this information is protected by the Federal Confidentiality of Alcohol and Drug Abuse Patient Records regulations: The Federal rules restrict any use of the information to criminally investigate or prosecute any alcohol or drug abuse patient.[facility] HospitalIn the event this information is protected by the Federal Confidentiality of Alcohol and Drug Abuse Patient Records regulations: The Federal rules restrict any use of the information to criminally investigate or prosecute any alcohol or drug abuse patient.[facility] HospitalIn the event this information is protected by the Federal Confidentiality of Alcohol and Drug Abuse Patient Records regulations: The Federal rules restrict any use of the information to criminally investigate or prosecute any alcohol or drug abuse patient.[facility] HospitalIn the event this information is protected by the Federal Confidentiality of Alcohol and Drug Abuse Patient Records regulations: The Federal rules restrict any use of the information to criminally investigate or prosecute any alcohol or drug abuse patient.[facility] HospitalIn the event this information is protected by the Federal Confidentiality of Alcohol and Drug Abuse Patient Records regulations: The Federal rules restrict any use of the information to criminally investigate or prosecute any alcohol or drug abuse patient.[facility] HospitalIn the event this information is protected by the Federal Confidentiality of Alcohol and Drug Abuse Patient Records regulations: The Federal rules restrict any use of the information to criminally investigate or prosecute any alcohol or drug abuse patient.[facility] HospitalIn the event this information is protected by the Federal Confidentiality of Alcohol and Drug Abuse Patient Records regulations: The Federal rules restrict any use of the information to criminally investigate or prosecute any alcohol or drug abuse patient.[facility] HospitalIn the event this information is protected by the Federal Confidentiality of Alcohol and Drug Abuse Patient Records regulations: The Federal rules restrict any use of the information to criminally investigate or prosecute any alcohol or drug abuse patient.[facility] HospitalIn the event this information is protected by the Federal Confidentiality of Alcohol and Drug Abuse Patient Records regulations: The Federal rules restrict any use of the information to criminally investigate or prosecute any alcohol or drug abuse patient.[facility] HospitalIn the event this information is protected by the Federal Confidentiality of Alcohol and Drug Abuse Patient Records regulations: The Federal rules restrict any use of the information to criminally investigate or prosecute any alcohol or drug abuse patient.[facility] HospitalIn the event this information is protected by the Federal Confidentiality of Alcohol and Drug Abuse Patient Records regulations: The Federal rules restrict any use of the information to criminally investigate or prosecute any alcohol or drug abuse patient.[facility] HospitalIn the event this information is protected by the Federal Confidentiality of Alcohol and Drug Abuse Patient Records regulations: The Federal rules restrict any use of the information to criminally investigate or prosecute any alcohol or drug abuse patient.[facility] HospitalIn the event this information is protected by the Federal Confidentiality of Alcohol and Drug Abuse Patient Records regulations: The Federal rules restrict any use of the information to criminally investigate or prosecute any alcohol or drug abuse patient.[facility] HospitalIn the event this information is protected by the Federal Confidentiality of Alcohol and Drug Abuse Patient Records regulations: The Federal rules restrict any use of the information to criminally investigate or prosecute any alcohol or drug abuse patient.[facility] HospitalIn the event this information is protected by the Federal Confidentiality of Alcohol and Drug Abuse Patient Records regulations: The Federal rules restrict any use of the information to criminally investigate or prosecute any alcohol or drug abuse patient.[facility] HospitalIn the event this information is protected by the Federal Confidentiality of Alcohol and Drug Abuse Patient Records regulations: The Federal rules restrict any use of the information to criminally investigate or prosecute any alcohol or drug abuse patient.[facility] HospitalIn the event this information is protected by the Federal Confidentiality of Alcohol and Drug Abuse Patient Records regulations: The Federal rules restrict any use of the information to criminally investigate or prosecute any alcohol or drug abuse patient.[facility] Reason for Visit (unrecogniz ed section [...] needed Reason Comments CARD New Patient Consult 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 Nauseous from RX? Reason Onset Date Comments Results 10/08/2024 Reason Comments Recheck Hosp follow up Afib Reason Onset Date Comments [facility] Navigation Outreach 11/07/2024 [employer] workbejoaquin fuentes Reason Comments PT plan of care Reason Comments [facility] HH SN POC Reason Onset Date Comments Transition Of Care 11/11/2024 Reason Comments ER F/U [facility] 10/30/24-11/03/24 Reason Onset Date Comments ACM KRYSTLE RN 11/23/2024 Chart review review per request of payor Reason Comments Hospital Follow Up [facility] ED 11/19/24 Reason Onset Date Comments Refill Request 2024 Reason Comments Head Congestion Head congestion, pro ductive cough 5 days Reason Onset Date Comments Results 12/15/2024 Reason Comments 1 week f/u Cough with congestio n Reason Onset Date Comments Refill Request 01/02/2025 Reason Comments 2 month f/u Care Teams (unrecognized sec tion and content) Detention Attendant Relationship Specialty Start Date End Date Anay Schuler MD [address] [place] [address] PCP - General Internal Medicine 05/06/16 Detention Attendant Relationship Specialty Start Date End Date Anay Schuler MD [address] [place] [address] PCP - General Internal Medicine 05/06/16 Detention Attendant Relationship Specialty Start Date End Date Anay Schuler MD [address] [place] [address] PCP - General Internal Medicine 05/06/16 Detention Attendant Relationship Specialty Start Date End Date Anay Schuler MD [address] [place] [address] PCP - General Internal Medicine 05/06/16 Detention Attendant Relationship Specialty Start Date End Date Anay Schuler MD [address] [place] [address] PCP - General Internal Medicine 05/06/16 Detention Attendant Relationship Specialty Start Date End Date Anay Schuler MD [address] [place] [address] PCP - General Internal Medicine 05/06/16 Detention Attendant Relationship Specialty Start Date End Date Anay Schuler MD [address] [place] [address] PCP - General Internal Medicine 05/06/16 Detention Attendant Relationship Specialty Start Date End Date Anay Schuler MD [address] [place] [address] PCP - General Internal Medicine 05/06/16 Detention Attendant Relationship Specialty Start Date End Date Anay Schuler MD [address] [place] [address] PCP - General Internal Medicine 05/06/16 Detention Attendant Relationship Specialty Start Date End Date Anay Schuler MD [address] [place] [address] PCP - General Internal Medicine 05/06/16 Detention Attendant Relationship Specialty Start Date End Date Anay Schuler MD [address] [place] [address] PCP - General Internal Medicine 05/06/16 Detention Attendant Relationship Specialty Start Date End Date Anay Schuler MD [address] [place] [address] PCP - General Internal Medicine 05/06/16 Detention Attendant Relationship Specialty Start Date End Date Anay Schuler MD [address] [place] [address] PCP - General Internal Medicine 05/06/16 Detention Attendant Relationship Specialty Start Date End Date Anay Schuler MD [address] [place] [address] PCP - General Internal Medicine 05/06/16 Detention Attendant Relationship Specialty Start Date End Date Anay Schuler MD [address] [place] [address] PCP - General Internal Medicine 05/06/16 Detention Attendant Relationship Specialty Start Date End Date Anay Schuler MD [address] [place] [address] PCP - General Internal Medicine 05/06/16 Detention Attendant Relationship Specialty Start Date End Date Anay Schuler MD [address] [place] [address] PCP - General Internal Medicine 05/06/16 Team Status: Active Member Role Status Dates Dr. Anay Schuler MD Family Provider Active Dr. Anay Schuler MD Primary Care Provider Active Team Status: Inactive Member Role Status Dates Dr. Anay Schuler MD Primary Care Provider, Referring Provider Active Celeste Bell OUTSIDE PLANT CABLE ENGINEER, OUTSIDE PLANT CABLE ENGINEER-C Attending Provider Active Team Status: Inactive Member Role Status Dates Dr. Anay Schuler MD Primary Care Provider, Referring Provider Active Tex Squires OUTSIDE PLANT CABLE ENGINEER, OUTSIDE PLANT CABLE ENGINEER-C Attending Provider Active Team Status: Inactive Member Role Status Dates Dr. Anay Schuler MD Primary Care Provider, Referring Provider Active Ning Spencer OUTSIDE PLANT CABLE ENGINEER, OUTSIDE PLANT CABLE ENGINEER-C Attending Provider Active Team Status: Active Member [...] Attending Provider, Other Prov ider Active Dr. Cohng Yeboah MD Other Provider Active Team Status: Active Member Role Status Dates Dr. Anay Schuler MD Primary Care Provider Active Dr. Woo Tucker MD Emergency Provider Active Dr. Akosua Sewell DO Admit Provider, Other Provider Ac tive Dr. Brigido Frey MD Other Provider Active Dr. Dacia Sewell DO Other Provider Active Dr. Sarah Nash MD Other Provider Active Dr. Chong Ybeoah MD Other Provider Active Dr. Pb Granado MD Attending Provider Active Team Status: Active Member Role Status Dates Dr. Anay Schuler MD Primary Care Provider Active Dr. Woo Tucker MD Emergency Provider Active Dr. Akosua Sewell DO Admit Provider, Other Provider Ac tive Dr. Brigido Frey MD Attending Provider, Other Prov ider Active Dr. Dacia Sewell DO Other Provider Active Dr. Sarah Nash MD Other Provider Active Dr. Chong Yeboah MD Other Provider Active Team Status: Inactive Member Role Status Dates Dr. Anay Schuler MD Primary Care Provider, Referring Provider Active Dr. Brigido Frey MD Attending Provider Active Team Status: Inactive Member Role Status Dates Dr. Anay Schuler MD Primary Care Provider Active Tex Squires OUTSIDE PLANT CABLE ENGINEER, OUTSIDE PLANT CABLE ENGINEER-C Attending Provider Active Team Status: Inactive Member Role Status Dates Dr. Anay Schuler MD Primary Care Provider Active Tex Squires OUTSIDE PLANT CABLE ENGINEER, OUTSIDE PLANT CABLE ENGINEER-C Attending Provider, Referring Pro vider Active Team [...] MD Primary Care Provider Active Ning Spencer OUTSIDE PLANT CABLE ENGINEER, OUTSIDE PLANT CABLE ENGINEER-C Attending Provider Active Team Status: Inactive Member [...] Dr. Brigido Frey MD Referring Provider Active Detention Attendant Relationship Specialty Start Date End Date nAay Schuler MD [address] [place], [place] [address] PCP - General Internal Medicine 05/06/16 Team [...] MD Primary Care Provider Active Celeste Bell OUTSIDE PLANT CABLE ENGINEER, OUTSIDE PLANT CABLE ENGINEER-C Attending Provider, Referrin g Provider Active Detention Attendant Relationship Specialty Start Date End Date Anay Schuler MD [address] [place], [place] [id number] PCP - General Internal Medicine 05/06/16 Detention Attendant Relationship Specialty Start Date End Date Anay Schuler MD [address] [place], [place] [address] PCP - General Internal Medicine 05/06/16 Detention Attendant Relationship Specialty Start Date End Date Anay Schuler MD [address] [place], [place] [address] PCP - General Internal Medicine 05/06/16 Fredis Marie [address] [id number] Specialty Sack Repairer Cardiology 01/27/23 Yuriy Collins DO [address] [place] [address] Specialty Sack Repairer Gastroenterology 01/27/23 Detention Attendant Relationship Specialty Start Date End Date Anay Schuler MD [address] [place] [address] PCP - General Internal Medicine 05/06/16 Fredis Marie [address] [place] [address] Specialty Sack Repairer Cardiology 01/27/23 Yuriy Collins DO [address] [place] [address] Specialty Sack Repairer Gastroenterology 01/27/23 Detention Attendant Relationship Specialty Start Date End Date Anay Schuler MD [address] [place] [address] PCP - General Internal Medicine 05/06/16 Fredis Marie [address] [place] [address] Specialty Sack Repairer Cardiology 01/27/23 Yuriy Collins DO [address] [place] [address] Specialty Sack Repairer Gastroenterology 01/27/23 Detention Attendant Relationship Specialty Start Date End Date Anay Schuler MD [address] [place] [address] PCP - General Internal Medicine 05/06/16 Fredis Marie [address] [place] [address] Specialty Sack Repairer Cardiology 01/27/23 Yuriy Collins DO [address] [place] [address] Specialty Sack Repairer Gastroenterology 01/27/23 Detention Attendant Relationship Specialty Start Date End Date Anay Schuler MD [address] [place] [address] PCP - General Internal Medicine 05/06/16 Fredis Marie MD [address] [place] [address] Specialty Sack Repairer Cardiology 01/27/23 Yuriy Collins DO [address] [place] [address] Specialty Sack Repairer Gastroenterology 01/27/23 Detention Attendant Relationship Specialty Start Date End Date Anay Schuler MD [address] [place] [address] PCP - General Internal Medicine 05/06/16 Fredis Marie MD [address] [place] [address] Specialty Sack Repairer Cardiology 01/27/23 Yuriy Collins DO [address] [place] [address] Specialty Sack Repairer Gastroenterology 01/27/23 Detention Attendant Relationship Specialty Start Date End Date Anay Schuler MD [address] [place] [address] PCP - General Internal Medicine 05/06/16 Fredis Marie MD [address] [place] [address] Specialty Sack Repairer Cardiology 01/27/23 Yuriy Collins DO [address] [place] [address] Specialty Sack Repairer Gastroenterology 01/27/23 Detention Attendant Relationship Specialty Start Date End Date Anay Schuler MD [address] [place] [address] PCP - General Internal Medicine 05/06/16 Fredis Marie MD [address] [place] [address] Specialty Sack Repairer Cardiology 01/27/23 Yuriy Collins DO [address] [place] [address] Specialty Sack Repairer Gastroenterology 01/27/23 Detention Attendant Relationship Specialty Start Date End Date Anay Schuler MD [address] [place] [address] PCP - General Internal Medicine 05/06/16 Detention Attendant Relationship Specialty Start Date End Date Anay Schuler MD [address] [place] [address] PCP - General Internal Medicine 05/06/16 Fredis Marie MD [address] [place] [address] Specialty Sack Repairer Cardiology 01/27/23 Yuriy Collins DO [address] [place] [address] Specialty Sack Repairer Gastroenterology 01/27/23 Detention Attendant Relationship Specialty Start Date End Date Anay Schuler MD [address] [facility] [place] [address] PCP - General Internal Medicine 05/06/16 Fredis Marie MD [address] [place] [address] Specialty Sack Repairer Cardiology 01/27/23 Yuriy Collins DO [address] [place] [address] Specialty Sack Repairer Gastroenterology 01/27/23 Detention Attendant Relationship Specialty Start Date End Date Anay Schuler MD [address] [facility] [place] [address] PCP - General Internal Medicine 05/06/16 Fredis Marie MD [address] [place] [address] Specialty Sack Repairer Cardiology 01/27/23 Yuriy Collins DO [address] [place], [place] [address]- Specialty Sack Repairer Gastroenterology 01/27/23 Team Status: Inactive Member Role Status Dates Dr. Anay Schuler MD Primary Care Provider, Referring Provider Active Dr. Terry Basilio MD Attending Provider Active Team Status: Active Member Role Status Dates Dr. Anay Schuler MD Primary Care Provider Active Dr. Margie Kahn MD Emergency Provider Active Dr. Akosua Sewell DO Admit Provider, Attending Provide r Active Detention Attendant Relationship Specialty Start Date End Date Anay Schuler MD [address] [place] [address] PCP - General Internal Medicine 05/06/16 Fredis Marie MD [address] [place], [place] [address] Specialty Sack Repairer Cardiology 01/27/23 Yuriy Collins DO [address] [place], [place] [address] Specialty Sack Repairer Gastroenterology 01/27/23 Team Status: Inactive Member Role [...] Schuler MD Primary Care Provider Active Dr. Magrie Kahn MD Emergency Provider Active Dr. Akosua [...] Dr. Nirav Cain MD Attending Provider Active Detention Attendant Relationship Specialty Start Date End Date Anay Schuler MD [address] [place] [address] PCP - General Internal Medicine 05/06/16 Fredis Marie MD [address] [place] [address] Specialty Sack Repairer Cardiology 01/27/23 Yuriy Collins DO [address] [place] [address] Specialty Sack Repairer Gastroenterology 01/27/23 Detention Attendant Relationship Specialty Start Date End Date Anay Schuler MD [address] [place] [place] [address] PCP - General Internal Medicine 05/06/16 Fredis Marie MD [address] [place] [address] Specialty Sack Repairer Cardiology 01/27/23 Yuriy Collins DO [address] [place] [address] Specialty Sack Repairer Gastroenterology 01/27/23 Detention Attendant Relationship Specialty Start Date End Date Anay Schuler MD [address] [facility] [place] [address] PCP - General Internal Medicine 05/06/16 Fredis Marie MD [address] [place] [address] Specialty Sack Repairer Cardiology 01/27/23 Yuriy Collins DO [address] [place], [place] [address] Specialty Sack Repairer Gastroenterology 01/27/23 Detention Attendant Relationship Specialty Start Date End Date Anay Schuler MD [address] [facility] [place] [address] PCP - General Internal Medicine 05/06/16 Fredis Marie MD [address] [place] [address] Specialty Sack Repairer Cardiology 01/27/23 Yuriy Collins DO [address] [place], [place] [address] Specialty Sack Repairer Gastroenterology 01/27/23 Detention Attendant Relationship Specialty Start Date End Date Anay Schuler MD [address] [facility] [place] [address] PCP - General Internal Medicine 05/06/16 Detention Attendant Relationship Specialty Start Date End Date Anay Schuler MD [address] [facility] [place] [address] PCP - General Internal Medicine 05/06/16 Detention Attendant Relationship Specialty Start Date End Date Anay Schuler MD [address] [facility] [place] [address] PCP - General Internal Medicine 05/06/16 Detention Attendant Relationship Specialty Start Date End Date Anay Schuler MD [address] [place] [address] PCP - General Internal Medicine 05/06/16 Fredis Marie MD [address] [place] [address] Specialty Sack Repairer Cardiology 01/27/23 Yuriy Collins DO [address] [place], [place] [address] Specialty Sack Repairer Gastroenterology 01/27/23 Detention Attendant Relationship Specialty Start Date End Date Anay Schuler MD [address] [place] [address] PCP - General Internal Medicine 05/06/16 Fredis Marie MD [address] [place] [address] Specialty Sack Repairer Cardiology 01/27/23 Yuriy Collins DO [address] [place] [address] Specialty Sack Repairer Gastroenterology 01/27/23 Detention Attendant Relationship Specialty Start Date End Date Anay Schuler MD [address] [place] [address] PCP - General Internal Medicine 05/06/16 Fredis Marie MD [address] [place] [address] Specialty Sack Repairer Cardiology 01/27/23 Yuriy Collins DO [address] [place] [address] Specialty Sack Repairer Gastroenterology 01/27/23 Megha Mahoney PA-C [address] [place] [address] Typewriter Aligner Family Medicine 06/05/24 Silvio Drake APRN.INJECTOR ASSEMBLER [address] [place] [address] Typewriter Aligner Internal Medicine 06/05/24 Kaylynn Rios PA-C [address] [facility] [place] [address] Typewriter Aligner Family Medicine 06/05/24 Detention Attendant Relationship Specialty Start Date End Date Anay Schuler MD [address] [facility] [place] [address] PCP - General Internal Medicine 05/06/16 Fredis Marie MD [address] [facility] [address] [place] [address] Specialty Sack Repairer Cardiology 01/27/23 Yuriy Collins DO [address] [facility] [address] [place] [address] Specialty Sack Repairer Gastroenterology 01/27/23 Megha Mahoney PA-C [address] [place] [address] Typewriter Aligner Family Medicine 06/05/24 Silvio Drake APRN.INJECTOR ASSEMBLER [address] [place] [address] Typewriter Aligner Internal Medicine 06/05/24 Kaylynn Rios PA-C [address] [facility] [place] [address] Typewriter Aligner Family Medicine 06/05/24 Detention Attendant Relationship Specialty Start Date End Date Anay Schuler MD [address] [place] [address] PCP - General Internal Medicine 05/06/16 Fredis Marie MD [address] [place] [address] Specialty Sack Repairer Cardiology 01/27/23 Yuriy Collins DO [address] [place] [address] Specialty Sack Repairer Gastroenterology 01/27/23 Megha Mahoney PA-C [address] [place] [address] Typewriter Aligner Family Medicine 06/05/24 Silvio Drake APRN.[facility] [address] [place] [address] Typewriter Aligner Internal Medicine 06/05/24 Kaylynn Rios PA-C [address] [place] [address] Typewriter Aligner Family [facility] 06/05/24 Detention Attendant Relationship Specialty Start Date End Date Anay Schuler MD [address] [place] [address] PCP - General Internal Medicine 05/06/16 Fredis Marie MD [address] [place] [address] Specialty Sack Repairer Cardiology 01/27/23 Yuriy Collins DO [address] [place], [place] [address] Specialty Sack Repairer Gastroenterology 01/27/23 Megha Mahoney PA-C [address] [place] [address] Typewriter Aligner [facility] 06/05/24 Silvio Drake APRN.INJECTOR ASSEMBLER [address] [place] [address] Typewriter Aligner Internal Medicine 06/05/24 Kaylynn Rios PA-C [address] [place] [address] [facility] 06/05/24 Detention Attendant Relationship Specialty Start Date End Date Anay Schuler MD [address] [place] [address] PCP - General Internal Medicine 05/06/16 Fredis Marie MD [address] [facility] [address] [place] [address] Specialty Sack Repairer Cardiology 01/27/23 Yuriy Collins DO [address] [facility] [address] [place] [address] Specialty Sack Repairer Gastroenterology 01/27/23 Megha Mahoney PA-C [address] [place] [address] [facility] 06/05/24 Silvio Drake APRN.INJECTOR ASSEMBLER [address] [place] [address] Typewriter Aligner Internal Medicine 06/05/24 Kaylynn Rios PA-C [address] [place] [address] Typewriter Aligner Family Medicine 06/05/24 Detention Attendant Relationship Specialty Start Date End Date Anay Schuler MD [address] [facility] [place] [address] PCP - General Internal Medicine 05/06/16 Fredis Marie MD [address] [place] [address] Specialty Sack Repairer Cardiology 01/27/23 Yuriy Collins DO [address] [place] [address] Specialty Sack Repairer Gastroenterology 01/27/23 Silvio Drake APRN.INJECTOR ASSEMBLER [address] [place] [address] Typewriter Aligner Internal Medicine 06/05/24 Detention Attendant Relationship Specialty Start Date End Date Anay Schuler MD [address] [facility] [place] [address] PCP - General Internal Medicine 05/06/16 Fredis Marie MD [address] [place] [address] Specialty Sack Repairer Cardiology 01/27/23 Yuriy Collins DO [address] [place], [place] [address] Specialty Sack Repairer Gastroenterology 01/27/23 Silvio Drake APRN.INJECTOR ASSEMBLER [address] [facility] [place] [address] Typewriter Aligner Internal Medicine 06/05/24 Detention Attendant Relationship Specialty Start Date End Date Anay Schuler MD [address] [facility] [place] [address] PCP - General Internal Medicine 05/06/16 Fredis Marie MD [address] [place] [address] Specialty Sack Repairer Cardiology 01/27/23 Yuriy Collins DO [address] [place] [address] Specialty Sack Repairer Gastroenterology 01/27/23 Silvio Drake APRN.INJECTOR ASSEMBLER [address] [facility] [place] [address] Typewriter Aligner Internal Medicine 06/05/24 Detention Attendant Relationship Specialty Start Date End Date Anay Schuler MD [address] [place] [address] PCP - General Internal Medicine 05/06/16 Fredis Marie MD [address] [place] [address] Specialty Sack Repairer Cardiology 01/27/23 Yuriy Collins DO [address] [place] [address] Specialty Sack Repairer Gastroenterology 01/27/23 Silvio Drake APRN.INJECTOR ASSEMBLER [address] [facility] [place] [address] Typewriter Aligner Internal Medicine 06/05/24 Detention Attendant Relationship Specialty Start Date End Date Anay Schuler MD [address] [place] [address] PCP - General Internal Medicine 05/06/16 Fredis Marie MD [address] [place] [address] Specialty Sack Repairer Cardiology 01/27/23 Yuriy Collins DO [address] [place] [address] Specialty Sack Repairer Gastroenterology 01/27/23 Silvio Drake APRN.INJECTOR ASSEMBLER [address] [facility] [place] [address] Typewriter Aligner Internal Medicine 06/05/24 Detention Attendant Relationship Specialty Start Date End Date Anay Schuler MD [address] [place] [address] PCP - General Internal Medicine 05/06/16 Fredis Marie MD [address] [place] [address] Specialty Sack Repairer Cardiology 01/27/23 Yuriy Collins DO [address] [place] [address] Specialty Sack Repairer Gastroenterology 01/27/23 Silvio Draek APRN.INJECTOR ASSEMBLER [address] [facility] [place] [address] Typewriter Aligner Internal Medicine 06/05/24 Team Status: Active Member [...] Other Provider Active Start: October 13, 2024 Detention Attendant Relationship Specialty Start Date End Date Anay Schuler MD [address] [place] [address] PCP - General Internal Medicine 05/06/16 Fredis Marie MD [address] [place] [address] Specialty Sack Repairer Cardiology 01/27/23 Yuriy Collins DO [address] [place] [address] Specialty Sack Repairer Gastroenterology 01/27/23 Silvio Drake APRN.INJECTOR ASSEMBLER [address] [facility] [place] [address] Typewriter Aligner Internal Medicine 06/05/24 Dacia Pitt, burglar alarm inspector Stamp Maker 10/14/24 Detention Attendant Relationship Specialty Start Date End Date Anay Schuler MD [address] [place] [address] PCP - General Internal Medicine 05/06/16 Fredis Marie MD [address] [place] [address] Specialty Sack Repairer Cardiology 01/27/23 Yuriy Collins DO [address] [place] [address] Specialty Sack Repairer Gastroenterology 01/27/23 Silvio Drake APRN.INJECTOR ASSEMBLER [address] [place] [address] Typewriter Aligner Internal Medicine 06/05/24 Dacia Pitt, burglar alarm inspector Stamp Maker 10/14/24 Detention Attendant Relationship Specialty Start Date End Date Anay Schuler MD [address] [place] [address] PCP - General Internal Medicine 05/06/16 Fredis Marie MD [address] [facility] [address] [place] [address] Specialty Sack Repairer Cardiology 01/27/23 Yuriy Collins DO [address] [facility] [address] [place] [address] Specialty Sack Repairer Gastroenterology 01/27/23 Silvio Drake APRN.INJECTOR ASSEMBLER [address] [place] [address] Typewriter Aligner Internal Medicine 06/05/24 Dacia Pitt RN Primary Care Stamp Maker 10/14/24 Detention Attendant Relationship Specialty Start Date End Date Anay Schuler MD [address] [place] [address] PCP - General Internal Medicine 05/06/16 Fredis Marie MD [address] [facility] [address] [place] [address] Specialty Sack Repairer Cardiology 01/27/23 Yuriy Collins DO [address] [address] Specialty Sack Repairer Gastroenterology 01/27/23 Megha Mahoney PA-C [address] [place] [address] Typewriter Aligner Family Medicine 06/05/24 09/18/24 Vidal, DAVID Mc.INJECTOR ASSEMBLER [address] [place], [place] [address]248[address] Typewriter Aligner Internal Medicine 06/05/24 Kaylynn Rios PA-C [address] [place], [place] [address] Typewriter Aligner Family [facility] 06/05/24 09/18/24 Dacia Pitt, burglar alarm inspector Stamp Maker 10/14/24 Team Status: Active Member Role Status [...] 2024 End: October 24, 2024 Ning Spencer OUTSIDE PLANT CABLE ENGINEER, OUTSIDE PLANT CABLE ENGINEER-C Attending Provider Active Start: October 24, 2024 End: October 24, 2024 Team Status: Inactive Member Role Status Dates Dr. Anay Schuler MD Primary Care Provider Active Start: October 24, 2024 End: October 24, 2024 Ning Spencer OUTSIDE PLANT CABLE ENGINEER, OUTSIDE PLANT CABLE ENGINEER-C Attending Provider Active Start: October 24, 2024 End: October 24, 2024 Ning Spencer OUTSIDE PLANT CABLE ENGINEER, OUTSIDE PLANT CABLE ENGINEER-C Referring Provider Active Start: October 24, 2024 End: October 24, 2024 Team Status: Inactive Member Role Status Dates Dr. Anay Schuler MD Primary Care Provider Active Start: October 27, 2024 End: October 27, 2024 Faustina Hernandez PA PA Attending Provider Active Start: October 27, 2024 End: October 27, 2024 Faustina Hernandez PA PA Referring Provider Active Start: October 27, [...] Active Sta rt: October 31, 2024 Dr. Jkae Kingston MD Attending Provider Active Start: October [...] Provider Active Sta rt: November 03, 2024 Detention Attendant Relationship Specialty Start Date End Date Anay Schuler MD [address] [facility] [place] [address] PCP - General Internal Medicine 05/06/16 Fredis Marie MD [address] [facility] [address] [place], [place] [address] Specialty Sack Repairer Cardiology 01/27/23 Yuriy Collins DO [address] [facility] [address] [place], [place] [address] Specialty Sack Repairer Gastroenterology 01/27/23 Silvio Drake APRN.INJECTOR ASSEMBLER [address] [facility] [place] [place] [address] Typewriter Aligner Internal Medicine 06/05/24 Dacia Pitt, burglar alarm inspector Stamp Maker 10/14/24 11/04/24 Dacia Pitt, RN 11/04/24 Detention Attendant Relationship Specialty Start Date End Date Anay Schuler MD [address] [facility] [place], [place] [id number] PCP - General Internal Medicine 05/06/16 Fredis Marie MD [address] [place] [address] Specialty Sack Repairer Cardiology 01/27/23 Yuriy Collins DO [address] [place] [address] Specialty Sack Repairer Gastroenterology 01/27/23 Silvio Drake APRN.INJECTOR ASSEMBLER [address] [facility] [place] [place] [address] Typewriter Aligner Internal Medicine 06/05/24 Dacia Pitt, burglar alarm inspector Stamp Maker 10/14/24 11/04/24 Dacia Pitt, RN 11/04/24 Detention Attendant Relationship Specialty Start Date End Date Anay Schuler MD [address] [place] [address] PCP - General Internal Medicine 05/06/16 Fredis Marie MD [address] [place] [address] Specialty Sack Repairer Cardiology 01/27/23 Yuriy Collins DO [address] [place] [address] Specialty Sack Repairer Gastroenterology 01/27/23 Silvio Drake APRN.INJECTOR ASSEMBLER [address] [place] [address] Typewriter Aligner Internal Medicine 06/05/24 Dacia Pitt, RN 11/04/24 [...] November 08, 2024 End: November 08, 2024 Detention Attendant Relationship Specialty Start Date End Date Anay Schuler MD [address] [place] [address] PCP - General Internal Medicine 05/06/16 Fredis Marie MD [address] [facility] [address] [place], [place] [address] Specialty Sack Repairer Cardiology 01/27/23 Yuriy Collins DO [address] [facility] [address] [place] [address] Specialty Sack Repairer Gastroenterology 01/27/23 Silvio Drake APRN.INJECTOR ASSEMBLER [address] [facility], [place] [address]51 Typewriter Aligner Internal Medicine 06/05/24 Dacia Pitt, RN 11/04/24 Detention Attendant Relationship Specialty Start Date End Date Anay Schuler MD [address] [place], [place] [address] PCP - General Internal Medicine 05/06/16 Fredis Marie MD [address] [facility] [address] [place], [place] [address] Specialty Sack Repairer Cardiology 01/27/23 Yuriy Collins DO [address] [facility] [address] [place], [place] [address] Specialty Sack Repairer Gastroenterology 01/27/23 Silvio Drake APRN.INJECTOR ASSEMBLER [address] [facility], [place] [address] Typewriter Aligner Internal Medicine 06/05/24 Dacia Pitt RN 11/04/24 Team Status: Inactive Member Role Status Dates Dr. Anay Schuler MD Primary Care Provider Active Start: November 11, 2024 End: November 11, 2024 Dr. Anay Schuler MD Referring Provider Active Start: November 11, 2024 End: November 11, 2024 Ning Spencer OUTSIDE PLANT CABLE ENGINEER, OUTSIDE PLANT CABLE ENGINEER-C Attending Provider Active Start: November 11, 2024 [...] November 08, 2024 End: November 08, 2024 Detention Attendant Relationship Specialty Start Date End Date Anay Schuler MD [address] [facility] [place], [place] [id number] PCP - General Internal Medicine 05/06/16 Fredis Marie MD [address] [facility] [address] [place], [place] [address] Specialty Sack Repairer Cardiology 01/27/23 Yuriy Collins DO [address] [place], [place] [address] Specialty Sack Repairer Gastroenterology 01/27/23 Silvio Drkae APRN.INJECTOR ASSEMBLER [address] [facility] [place] [address] Typewriter Aligner Internal Medicine 06/05/24 Dacia Pitt, RN 11/04/24 Detention Attendant Relationship Specialty Start Date End Date Anay Schuler MD [address] [place] [address] PCP - General Internal Medicine 05/06/16 Fredis Marie MD [address] [place] [address] Specialty Sack Repairer Cardiology 01/27/23 Yuriy Collins DO [address] [place] [address] Specialty Sack Repairer Gastroenterology 01/27/23 Silvio Drake APRN.INJECTOR ASSEMBLER [address] [facility] [place] [address] Typewriter Aligner Internal Medicine 06/05/24 Dacia Pitt, RN 11/04/24 Detention Attendant Relationship Specialty Start Date End Date Anay Schuler MD [address] [place] [address] PCP - General Internal Medicine 05/06/16 Fredis Marie MD [address] [place] [address] Specialty Sack Repairer Cardiology 01/27/23 Yuriy Collins DO [address] [facility] [address] [place], [place] [address] Specialty Sack Repairer Gastroenterology 01/27/23 Megha Mahoney PA-C [address] [place] [address] Typewriter Aligner Family Medicine 06/05/24 09/18/24 Silvio Drake APRN.INJECTOR ASSEMBLER [address] [place], [place] [id number] [facility] Internal Medicine 06/05/24 Kaylynn Rios PA-C [address] [place], [place] [id number] Typewriter Aligner Family [facility] 06/05/24 09/18/24 Dacia Pitt, burglar alarm inspector Stamp Maker 10/14/24 11/04/24 Dacia Pitt, RN 11/04/24 Team Status: Inactive Member Role Status Dates Dr. Anay Schuler MD Primary Care Provider Active Start: November 15, 2024 End: November 15, 2024 Dr. Anay Schuler MD Referring Provider Active Start: November 15, 2024 End: November 15, 2024 Dr. Fredis Marie MD Attending Provider Active S tart: November 15, 2024 End: November 15, 2024 Detention Attendant Relationship Specialty Start Date End Date Anay Schuler MD [address] [place], [place] [address] PCP - General Internal Medicine 05/06/16 Fredis Marie MD [address] [facility] [address] [place], [place] [address] Specialty Sack Repairer Cardiology 01/27/23 Yuriy Collins DO [address] [place], [place] [address] Specialty Sack Repairer Gastroenterology 01/27/23 Silvio Drake APRN.INJECTOR ASSEMBLER [address] [facility] [place] [place] [address] Typewriter Aligner Internal Medicine 06/05/24 Dacia Pitt, RN 11/04/24 [...] 2024 End: November 25, 2024 Ning Spencer OUTSIDE PLANT CABLE ENGINEER, OUTSIDE PLANT CABLE ENGINEER-C Attending Provider Active Start: November 25, 2024 End: November 25, 2024 Detention Attendant Relationship Specialty Start Date End Date Anay Schuler MD [address] [place] [address] PCP - General Internal Medicine 05/06/16 Fredis Marie MD [address] [place], [place] [address] Specialty Sack Repairer Cardiology 01/27/23 Yuriy Collins DO [address] [place] [address] Specialty Sack Repairer Gastroenterology 01/27/23 Silvio Drake APRN.INJECTOR ASSEMBLER [address] [place] [address] Typewriter Aligner Internal Medicine 06/05/24 Dacia Pitt, burglar alarm inspector Stamp Maker 10/14/24 11/04/24 Dacia Pitt, RN 11/04/24 Detention Attendant Relationship Specialty Start Date End Date Anay Schuler MD [address] [facility] [place] [address] PCP - General Internal Medicine 05/06/16 Fredis Marie MD [address] [place] [address] Specialty Sack Repairer Cardiology 01/27/23 Yuriy Collins DO [address] [place] [address] Specialty Sack Repairer Gastroenterology 01/27/23 Silvio Drake APRN.INJECTOR ASSEMBLER [address] [place] [address] Typewriter Aligner Internal Medicine 06/05/24 Dacia Pitt, RN 11/04/24 Detention Attendant Relationship Specialty Start Date End Date Anay Schuler MD [address] [facility] [place] [address] PCP - General Internal Medicine 05/06/16 Fredis Marie MD [address] [place] [address] Specialty Sack Repairer Cardiology 01/27/23 Yuriy Collins DO [address] [place] [address] Specialty Sack Repairer Gastroenterology 01/27/23 Silvio Drake APRN.INJECTOR ASSEMBLER [address] [facility] [place] [place] [address] Typewriter Aligner Internal Medicine 06/05/24 Dacia Pitt RN 11/04/24 Detention Attendant Relationship Specialty Start Date End Date Anay Schuler MD [address] [place] [address] PCP - General Internal Medicine 05/06/16 Fredis Marie MD [address] [place] [address] Specialty Sack Repairer Cardiology 01/27/23 Yuriy Collins DO [address] [place] [address] Specialty Sack Repairer Gastroenterology 01/27/23 Silvio Drake APRN.INJECTOR ASSEMBLER [address] [facility] [place] [place] [address] [facility] Internal Medicine 06/05/24 Detention Attendant Relationship Specialty Start Date End Date Anay Schuler MD [address] [place] [address] PCP - General Internal Medicine 05/06/16 Fredis Marie MD [address] [place] [address] Specialty Sack Repairer Cardiology 01/27/23 Yuriy Collins DO [address] [place] [address] Specialty Sack Repairer Gastroenterology 01/27/23 Silvio Drake APRN.INJECTOR ASSEMBLER [address]40 [facility], [place] [address] Typewriter Aligner Internal Medicine 06/05/24 Detention Attendant Relationship Specialty Start Date End Date Anay Schuler MD [address] [facility] [place], [place] [address] PCP - General Internal Medicine 05/06/16 Fredis Marie MD [address] [place], [place] [address] Specialty Sack Repairer Cardiology 01/27/23 Yuriy Collins DO [address] [place], [place] [address] Specialty Sack Repairer Gastroenterology 01/27/23 Silvio Drake APRN.INJECTOR ASSEMBLER [address] [facility], [place] [address]21 Typewriter Aligner Internal Medicine 06/05/24 Team Status: Active Member [...] 2024 End: October 24, 2024 Ning Spencer OUTSIDE PLANT CABLE ENGINEER, OUTSIDE PLANT CABLE ENGINEER-C Attending Provider Active Start: October 24, 2024 End: October 24, 2024 Team Status: Inactive Member Role/Relationship Status Dates Dr. Anay Schuler MD Primary Care Provider Active Start: October 24, 2024 End: October 24, 2024 Ning Spencer OUTSIDE PLANT CABLE ENGINEER, OUTSIDE PLANT CABLE ENGINEER-C Attending Provider Active Start: October 24, 2024 End: October 24, 2024 Ning Spencer NP, OUTSIDE PLANT CABLE ENGINEER-C Referring Provider Active Start: October 24, 2024 End: October 24, 2024 Team Status: Inactive Member Role/Relationship Status Dates Dr. Anay Schuler MD Primary Care Provider Active Start: October 27, 2024 End: October 27, 2024 Faustina MCCANN, PA Attending Provider Active Start: October 27, [...] Active Star t: November 02, 2024 Dr. oRry Trevizo MD Other Provider Active Sta rt: [...] 2024 End: November 11, 2024 Ning Spencer OUTSIDE PLANT CABLE ENGINEER, OUTSIDE PLANT CABLE ENGINEER-C Attending Provider Active Start: November 11, 2024 [...] 2024 End: November 25, 2024 Ning Spencer OUTSIDE PLANT CABLE ENGINEER, OUTSIDE PLANT CABLE ENGINEER-C Attending Provider Active Start: November 25, 2024 End: November 25, 2024 Detention Attendant Relationship Specialty Start Date End Date Anay Schuler MD [address] [facility] [place], [place] [id number] PCP - General Internal Medicine 05/06/16 Fredis Marie MD [address] [place], [place] [id number] Specialty Sack Repairer Cardiology 01/27/23 Yuriy Collins DO [address] [place] [address] Specialty Sack Repairer Gastroenterology 01/27/23 Silvio Drake APRN.CNP [address] [place] [address] Typewriter Aligner Internal Medicine 06/05/24 Team Status: Inactive Member [...] 27, 2024 End: October 27, 2024 Faustina MCCANN PA Attending Provider Active Start: October 27, 2024 End: October 27, 2024 Faustina MCCANN, PA Referring [...] End: November 11, 2024 Ning Spencer NP, OUTSIDE PLANT CABLE ENGINEER-C Attending Provider Active Start: November 11, 2024 [...] End: November 25, 2024 Ning Spencer NP, OUTSIDE PLANT CABLE ENGINEER-C Attending Provider Active Start: November 25, 2024 [...] 2024 End: November 11, 2024 Ning Spencer OUTSIDE PLANT CABLE ENGINEER, OUTSIDE PLANT CABLE ENGINEER-C Attending Provider Active Start: November 11, 2024 [...] 2024 End: November 25, 2024 Ning Spencer NP OUTSIDE PLANT CABLE ENGINEER-C Attending Provider Active Start: November 25, 2024 [...] section and content) DATE CREATED AUTHOR 02/03/2023 [facility] DATE CREATED AUTHOR AUTHOR'S ORGANIZ ATION 01/07/2025 [facility] DATE CREATED AUTHOR AUTHOR'S ORGANIZ ATION 03/12/2025 [facility] FOR RECORDS PERTAINING TO PATIENTS WHO [...] BE BASED ON THE PRIMARY CLINICAL RECORDS. [address] [facility]. provides no warranty or guarantee of the accuracy or completeness of information in this document.
[2025-04-01] MEDS: 0.9% Normal Saline (1000mL) 1,000 ML 100 ML IV (16:20)
[2025-04-01] MEDS: Cholecalciferol (VIT D3) 25 MCG TABLET (1,000 UNITS) 50 MCG PO (16:26)
[2025-04-01] MEDS: BRIMONIDINE 0.15% 5 ML Bottle 1 DRP OPHTHALMIC (21:14)
[2025-04-01] MEDS: Timolol 0.5% 5ML OPTH.BTL 1 DRP RIGHT EYE (21:15)
[2025-04-01] MEDS: Potassium Chloride Oral Tablet 10 MEQ PO (21:18)
[2025-04-02] VITALS (20 sets, daily range): BP systolic 160–222; BP diastolic 48–62; PULSE 34–53; RESP 13–19; TEMP 36.6–37; O2SAT 97–98
[2025-04-02] MEDS: 0.9% Normal Saline (1000mL) 1,000 ML 100 ML IV (02:46)
[2025-04-02 04:41] LABS: Hematocrit 26.4 % (37-47); Hemoglobin 8.6 g/dL (12.0-15.0); Immature Granulocytes Count 0.020 X10^3/uL (0.0-0.0); Mean Corp Hgb Conc 32.6 g/dL (32-36); Mean Corpuscular Volume 97.8 fL (81-99); Mean Platelet Vol. 9.8 fl (6.2-12.0); NRBC Flagged by Analyzer 0 % (0-5); Platelet Count 140 K/mm3 (150-450); RBC Distribution Width CV 13.9 % (11.6-14.6); RBC Distribution Width SD 49.0 fl (35.1-43.9); Red Blood Count 2.70 M/mm3 (4.2-5.4); White Blood Count 5.1 K/mm3 (4.4-11.0)
[2025-04-02 04:59] LABS: Anion Gap 10 (5-15); BUN 30 mg/dL (4-19); BUN/Creat Ratio 17.8 RATIO (10-20); Calcium,Total 7.9 mg/dL (7.6-11.0); Carbon Dioxide 21.7 mmol/L (21.0-32.0); Chloride 104 mmol/L (98-108); Estimated Creatinine Clearance 17.99 ml/min (50-250); Glucose 91 mg/dL (70-99); Potassium 4.0 mmol/L (3.3-5.1)
[2025-04-02] MEDS: BRIMONIDINE 0.15% 5 ML Bottle 1 DRP OPHTHALMIC ×2 (09:18→21:16)
[2025-04-02] MEDS: Potassium Chloride Oral Tablet 10 MEQ PO ×2 (09:20→21:16)
[2025-04-02] MEDS: Timolol 0.5% 5ML OPTH.BTL 1 DRP RIGHT EYE ×2 (09:21→21:17)
[2025-04-02] MEDS: Cholecalciferol (VIT D3) 25 MCG TABLET (1,000 UNITS) 50 MCG PO (09:23)
[2025-04-02] MEDS: FLU VACCINE HIGH DOSE 25-26(65YR UP) 180 MCG/0.5 ML SYRINGE IM (09:34)
--- NOTE | 2025-04-02 12:16 | PN_ITS ---
Subjective Subjective Patient seen and examined. Resting comfortably in her chair. Her daughter and brother were by her bedside. She had no active complaints. She denied any chest pain or palpitations, dizziness, nausea vomiting or any other symptoms. Review of systems otherwise negative. Objective Data Objective Data Vital Signs: Vital Signs Temp Pulse Resp BP Pulse Ox O2 Del Method 98.3 F 51 L 18 176/55 H 97 Room Air 04/02/25 01:19 04/02/25 05:21 04/02/25 01:19 04/02/25 05:21 04/02/25 01:19 04/02/25 08:30 Oxygen Delivery Method Room Air Weight: 130 lb 15.273 oz Body Mass Index (BMI) 23.9 Intake & Output: Intake and Output for Last 24 Hours 03/31/25 04/01/25 04/02/25 23:59 23:59 23:59 Intake Total 50 / 50 1000 / 1000 Output Total 400 / 400 Balance -350 / -350 1000 / 1000 Lab / Micro Data 04/02/25 04:23 04/02/25 04:23 Labs: Laboratory Results - last 24 hr 04/01/25 13:10: Troponin T Hi Sens 2 Hr 41 H 04/02/25 04:23: WBC 5.1, RBC 2.70 L, Hgb 8.6 L, Hct 26.4 L, MCV 97.8, MCH 31.9, MCHC 32.6, RDW Std Deviation 49.0 H, RDW Coeff of Broderick 13.9, Plt Count 140 L, MPV 9.8, Immature Gran % (Auto) 0.400, Neut % (Auto) 67.0, Lymph % (Auto) 18.3 L, M lori % (Auto) 10.4 H, Eos % (Auto) 3.3, Baso % (Auto) 0.6, Absolute Neuts (auto) 3.4, Absolute Lymphs (auto) 0.93, Nucleated RBC % 0, Sodium 136, Potassium 4.0, Chloride 104, Carbon Dioxide 21.7, Anion Gap 10, BUN 30 H, Creatinine 1.71 H, E stim Creat Clear Calc 17.99 L, Est GFR (MDRD) Non-Af 28 L, BUN/Creatinine Ratio 17.8, Glucose 91, Calcium 7.9 Rhythm Strip Rhythm Strip: Sinus bradycardia Rate: 46 Ectopy: None Physical Exam Const alert, oriented x3 and no apparent distress Constitutional Narrative: frail, weak General Appearance: cooperative HEENT normocephalic, head/scalp atraumatic, hearing grossly normal bilaterally and moist oral mucous membranes Eyes PERRL and EOMs intact bilaterally Neck supple and no JVD Resp normal respiratory effort, normal air movement, no retractions, no use of accessory muscles and clear to auscultation bilaterally Cardio regular rhythm, S1 normal heart sound, S2 normal heart sound and no murmurs Cardio Narrative: sinus bradycardia GI normal to inspection, nondistended, normoactive bowel sounds, soft to palpation, non-tender and non-distended Extremity normal to inspection, full ROM, normal capillary refill and no clubbing, cyanosis or edema General Extremity: no tenderness to palpation of joints or extremities Skin General Skin Exam: no breakdown Neuro oriented x3, CN's II-XII intact bilaterally, moves all extremities and no focal motor deficits Sensorium / Orientation: awake and alert Motor Exam: strength 5/5 throughout Psych thought process normal, cooperative and affect normal Appearance: appropriate Assessment & Plan Assessment/Plan (1) Symptomatic bradycardia: PLAN: Plan #Symptomatic sinus bradycardia * Patient states started feeling dizzy this morning. Her heart rate was as low as the mid 20s and 30s. She is on amiodarone and metoprolol for A-fib. * EKG showed sinus bradycardia. Will hold metoprolol and amiodarone. * IV atropine as needed. * Cardiology consulted. Patient counseled she would likely need a pacemaker. * TSH is within normal limits at 2.38. * 2D echo ordered and will be done tomorrow. Initial troponin was 47 trended down to 41. * * #History of A-fib * Hold carvedilol and amiodarone. * xarelto held and placed on therapeutic Lovenox in anticipation for pacemaker insertion likely on Thursday. * 2D echo ordered. * #UTI: * Patient was recently diagnosed with UTI started on Bactrim by her PCP. * Family concerned the Bactrim may have caused her symptoms. * Bactrim discontinued and patient now on IV ceftriaxone. Urine cultures pending. #Benign essential hypertension: BP remains elevated was 176/55 this morning.. Amiodarone and carvedilol on hold. IV hydralazine as needed. On losartan. Will adjust dose as neededl also on p.o. hydralazine. #Congestive heart failure: Not in exacerbation. Continue Lasix # Hyperlipidemia: On statin DVT prophylaxis: therapeutic lovenox CODE STATUS: DNR CCA no intubation * Charges/Coding Visit Charges Inpatient E&M: 66096 Subs Hosp L2
--- NOTE | 2025-04-02 15:55 | PCM.CONS.C ---
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 Her amiodarone, carvedilol, Xarelto are on hold. Possible pacemaker tomorrow. (2) Symptomatic bradycardia: PLAN: Patient came in with heart rate in the 20s according to ER notes. Currently in sinus bradycardia. She has history of A-fib with RVR that was difficult to control. Risks and benefits of permanent pacemaker placement discussed with the patient. Patient and daughter wish to proceed. HPI Consult Data Date of Consult: 04/02/25 HPI Narrative Reason for Consultation: Dizziness, sinus bradycardia HPI Narrative: BERNADETTE ELIZABETH, is a 89 F who presents [with dizziness. She was found to be severely bradycardic. She has history of A-fib. Apparently in October 2024 she had RVR that was difficult to control. Patient's amiodarone, carvedilol were held and her heart rates as improved and her symptoms have improved as well.] [facility] Medical History Urinary tract infection Mixed incontinence Nocturia Stage 3b chronic kidney disease (CKD) Chronic kidney disease Hypothyroidism (acquired) Wears glasses Post-menopausal Thyroid disease Gastric reflux Former smoker History of edema History of echocardiogram History of stress test Cardiology follow-up encounter History of CHF (congestive heart failure) Paroxysmal atrial fibrillation Elevated liver enzymes CKD (chronic kidney disease) stage 4, GFR 15-29 ml/min Stage 3b chronic kidney disease (CKD) Lymphedema of both lower extremities Bilateral lower extremity edema Dyspnea on exertion Pneumonia (03/19/22) Essential hypertension Atrial fibrillation, new onset Positive occult stool blood test Umbilical hernia Osteoporosis Hemorrhage of anus and rectum Glaucoma Acquired keratoderma Anemia Syncope Essential hypertension Sweating Palpitations Near syncope Hernia HLD (hyperlipidemia) Home Medications ?Medication ?Instructions ?Recorded ?Last Taken ?Type atorvastatin 20 mg tablet 20 mg PO QODAY Cholesterol 12/06/16 03/31/25 History timolol maleate 0.5 % eye drops 1 drp RIGHT EYE BID eye drops 12/06/16 03/31/25 History brimonidine 0.15 % eye drops 1 drp ophthalmic (eye) BID eye 03/25/22 03/31/25 History health levothyroxine 25 mcg tablet 25 mcg PO DAILY thyroid 03/25/22 04/01/25 History losartan 50 mg tablet 50 mg PO BID bp #180 tabs 07/11/22 04/01/25 Rx mecobalamin (vitamin B12) 1,000 1,000 mcg PO DAILY supplement 05/08/23 03/31/25 History mcg chewable tablet denosumab 60 mg/mL subcutaneous 60 mg subcut [id number] bone health 08/20/23 10/26/24 History syringe (Prolia) ferrous sulfate 325 mg (65 mg 325 mg PO DAILY supplement 10/30/24 03/31/25 History iron) tablet (Feosol) netarsudil 0.02 %-latanoprost 1 drp ophthalmic (eye) DAILY 10/30/24 03/31/25 History 0.005 % eye drops (Rocklatan) cataract furosemide 20 mg tablet (Lasix) 20 mg PO .EOD edema 11/11/24 03/30/25 History omeprazole 40 mg capsule,delayed 40 mg PO DAILY gerd 11/11/24 04/01/25 History release carvedilol 3.125 mg tablet 3.125 mg PO BID #60 tabs 11/25/24 04/01/25 Rx cholecalciferol (vitamin D3) 50 50 mcg PO QDAY supplement 11/25/24 03/31/25 History mcg (2,000 unit) capsule amiodarone 200 mg tablet 100 mg (1/2 x 200 mg) PO QDAY #60 12/22/24 04/01/25 Rx tabs hydralazine 50 mg tablet 50 mg PO TID #90 tabs 01/09/25 04/01/25 Rx Gemtesa 75 mg tablet (vibegron) 75 mg PO DAILY bladder #90 tabs 02/22/25 04/01/25 Rx rivaroxaban 15 mg tablet (Xarelto) 15 mg PO DINNER blood thinner #30 03/27/25 03/31/25 Rx tabs potassium chloride 10 mEq 10 meq PO BID low potassium 04/01/25 03/31/25 History capsule,extended release Allergy/AdvReac Type Severity Reaction Status Date / Time amantadine Allergy Rash Verified 04/01/25 10:52 cephalexin Allergy Rash Verified 04/01/25 10:52 erythromycin base Allergy Rash Verified 04/01/25 10:52 hydrochlorothiazide Allergy Rash Verified 04/01/25 10:52 Iodinated Contrast Media Allergy Rash Verified 04/01/25 10:52 nitrofurantoin (From Allergy Vomiting Verified 04/01/25 10:52 Macrobid) amlodipine (From Norvasc) AdvReac Severe SEVERE Verified 04/01/25 10:52 SWELLING in LEGS Family History Mother CAD (coronary artery disease) Father CAD (coronary artery disease) Brother CAD (coronary artery disease) Sister CAD (coronary artery disease) Surgical History History of cardiac catheterization Hx of esophagogastroduodenoscopy History of colonoscopy History of hysteroscopy H/O hernia repair Tubal ligation status History of left heart catheterization (02/05/18) s/p left wrist ORIF Social History household members: none housing: apartment number of children: 4 Smoking Status: Former smoker quit date: 06/29/76 alcohol intake: never substance use type: does not use caffeine: Yes (Occasionally) Physical Exam Const alert and oriented x3 HEENT normocephalic Eyes no scleral icterus Resp normal respiratory effort Charges/Coding Visit Charges Inpatient E&M: 94378 Init Hosp L1 Objective Data Vital Signs: Vital Signs Temp Pulse Resp BP Pulse Ox O2 Del Method 98.3 F 46 L 13 160/50 H 98 Room Air 04/02/25 12:15 04/02/25 15:00 04/02/25 12:15 04/02/25 12:15 04/02/25 12:15 04/02/25 14:00 Oxygen Delivery Method Room Air Weight: 130 lb 15.273 oz Body Mass Index (BMI) 23.9 Intake & Output: Intake and Output for Last 24 Hours 03/31/25 04/01/25 04/02/25 23:59 23:59 23:59 Intake Total 50 / 50 1050 / 1050 Output Total 400 / 400 600 / 600 Balance -350 / -350 450 / 450 Lab / Micro Data 04/02/25 04:23 04/02/25 04:23 Labs: Laboratory Results - last 24 hr 04/02/25 04:23: WBC 5.1, RBC 2.70 L, Hgb 8.6 L, Hct 26.4 L, MCV 97.8, MCH 31.9, MCHC 32.6, RDW Std Deviation 49.0 H, RDW Coeff of Broderick 13.9, Plt Count 140 L, MPV 9.8, Immature Gran % (Auto) 0.400, Neut % (Auto) 67.0, Lymph % (Auto) 18.3 L, [place] % (Auto) 10.4 H, Eos % (Auto) 3.3, Baso % (Auto) 0.6, Absolute Neuts (auto) 3.4, Absolute Lymphs (auto) 0.93, Nucleated RBC % 0, Sodium 136, Potassium 4.0, Chloride 104, Carbon Dioxide 21.7, Anion Gap 10, BUN 30 H, Creatinine 1.71 H, Estim Creat Clear Calc 17.99 L, Est GFR (MDRD) Non-Af 28 L, BUN/Creatinine Ratio 17.8, Glucose 91, Calcium 7.9 Rhythm Strip Rhythm Strip: Sinus bradycardia Rate: 46 Ectopy: None Cardiology Labs/Tests 04/02/25 04:23: WBC 5.1, RBC 2.70 L, Hgb 8.6 L, Hct 26.4 L, MCV 97.8, MCH 31.9, MCHC 32.6, Plt Count 140 L, MPV 9.8, Immature Gran % (Auto) 0.400, Neut % (Auto) 67.0, Lymph % (Auto) 18.3 L, [place] % (Auto) 10.4 H, Eos % (Auto) 3.3, Baso % (Auto) 0.6, Absolute Neuts (auto) 3.4, Nucleated RBC % 0, Sodium 136, Potassium 4.0, Chloride 104, Carbon Dioxide 21.7, Anion Gap 10, BUN 30 H, Creatinine 1.71 H, Est GFR (MDRD) Non-Af 28 L, BUN/Creatinine Ratio 17.8, Glucose 91, Calcium 7.9 Rhythm: EKG: ECHO: Stress Test: Cardiac Cath: PCI: CT Surgery: Holter monitor: EPS: PPM: CXR: Chest CT Scan: LANA Risk Score for UA/STEMI Assesmment (YES = 1) Risk Stratification Applicable: No
--- NOTE | 2025-04-02 23:10 | NURSING ---
Patient's daughter came to desk, stated she spoke with her mother about pacemaker insertion plan. Patient and daughter would like to have either the hospitalist or highway landscape architect speak with them both about code status. She is aware of current code status, [id number] No intubation, but would like to change code status to full prior to pacer placement.
[2025-04-03] VITALS (11 sets, daily range): BP systolic 145–210; BP diastolic 48–94; PULSE 43–51; RESP 14–145; TEMP 36.6–36.9; O2SAT 97–99
[2025-04-03 03:14] LABS: Hematocrit 28.6 % (37-47); Hemoglobin 9.2 g/dL (12.0-15.0); Immature Granulocytes Count 0.010 X10^3/uL (0.0-0.0); Mean Corp Hgb Conc 32.2 g/dL (32-36); Mean Corpuscular Volume 96.9 fL (81-99); Mean Platelet Vol. 10.0 fl (6.2-12.0); NRBC Flagged by Analyzer 0 % (0-5); Platelet Count 154 K/mm3 (150-450); RBC Distribution Width CV 13.8 % (11.6-14.6); RBC Distribution Width SD 49.2 fl (35.1-43.9); Red Blood Count 2.95 M/mm3 (4.2-5.4); White Blood Count 4.9 K/mm3 (4.4-11.0)
[2025-04-03 04:16] LABS: Anion Gap 9 (5-15); BUN 28 mg/dL (4-19); BUN/Creat Ratio 18.3 RATIO (10-20); Calcium,Total 8.4 mg/dL (7.6-11.0); Carbon Dioxide 20.7 mmol/L (21.0-32.0); Chloride 106 mmol/L (98-108); Estimated Creatinine Clearance 19.84 ml/min (50-250); Glucose 96 mg/dL (70-99); Potassium 4.3 mmol/L (3.3-5.1)
[2025-04-03] MEDS: Potassium Chloride Oral Tablet 10 MEQ PO ×2 (07:50→21:26)
[2025-04-03] MEDS: Timolol 0.5% 5ML OPTH.BTL 1 DRP RIGHT EYE ×2 (07:51→21:29)
[2025-04-03] MEDS: Cholecalciferol (VIT D3) 25 MCG TABLET (1,000 UNITS) 50 MCG PO (07:51)
[2025-04-03] MEDS: BRIMONIDINE 0.15% 5 ML Bottle 1 DRP OPHTHALMIC ×2 (07:52→21:26)
--- NOTE | 2025-04-03 10:23 | PN_ITS ---
Subjective Subjective Patient seen and examined. Her daughter was by her bedside. She had no active complaints and had an uneventful night. She remains bradycardic. Review of systems otherwise negative. Objective Data Objective Data Vital Signs: Vital Signs Temp Pulse Resp BP Pulse Ox O2 Del Method 98.4 F 49 L 16 151/79 H 98 Room Air 04/03/25 07:30 04/03/25 07:30 04/03/25 07:30 04/03/25 07:30 04/03/25 07:30 04/03/25 07:30 Oxygen Delivery Method Room Air Weight: 130 lb 15.273 oz Body Mass Index (BMI) 23.9 Intake & Output: Intake and Output for Last 24 Hours 04/01/25 04/02/25 04/03/25 23:59 23:59 23:59 Intake Total 50 / 50 2049 / 0 200 / 200 Output Total 400 / 400 750 / 925 375 / 375 Balance -350 / -350 1300 / 1125 -175 / -175 Lab / Micro Data 04/03/25 03:07 04/03/25 03:07 Labs: Laboratory Results - last 24 hr 04/03/25 03:07: WBC 4.9, RBC 2.95 L, Hgb 9.2 L, Hct 28.6 L, MCV 96.9, MCH 31.2, MCHC 32.2, RDW Std Deviation 49.2 H, RDW Coeff of Broderick 13.8, Plt Count 154, MPV 10.0, Immature Gran % (Auto) 0.200, Neut % (Auto) 61.2, Lymph % (Auto) 22.9, [place] % (Auto) 9.6, Eos % (Auto) 5.3 H, Baso % (Auto) 0.8, Absolute Neuts (auto) 3.0, Absolute Lymphs (auto) 1.12, Nucleated RBC % 0, Sodium 136, Potassium 4.3, Chloride 106, Carbon Dioxide 20.7 L, Anion Gap 9, BUN 28 H, Creatinine 1.55 H, E stim Creat Clear Calc 19.84 L, Est GFR (MDRD) Non-Af 32 L, BUN/Creatinine Ratio 18.3, Glucose 96, Calcium 8.4 Micro: Microbiology 04/01/25 17:45 Urine, Clean Catch Urine Culture - Final Mixed Gram Pos & Gram Neg Org Rhythm Strip Rhythm Strip: Sinus bradycardia Rate: 46 Ectopy: None Physical Exam Const alert, oriented x3 and no apparent distress Constitutional Narrative: frail, weak General Appearance: cooperative HEENT normocephalic, head/scalp atraumatic, hearing grossly normal bilaterally and moist oral mucous membranes Eyes PERRL and EOMs intact bilaterally Neck supple and no JVD Resp normal respiratory effort, normal air movement, no retractions, no use of accessory muscles and clear to auscultation bilaterally Cardio regular rhythm, S1 normal heart sound, S2 normal heart sound and no murmurs Cardio Narrative: sinus bradycardia GI normal to inspection, nondistended, normoactive bowel sounds, soft to palpation, non-tender and non-distended Extremity normal to inspection, full ROM, normal capillary refill and no clubbing, cyanosis or edema General Extremity: no tenderness to palpation of joints or extremities Skin General Skin Exam: no breakdown Neuro oriented x3, CN's II-XII intact bilaterally, moves all extremities and no focal motor deficits Sensorium / Orientation: awake and alert Motor Exam: strength 5/5 throughout Psych thought process normal, cooperative and affect normal Appearance: appropriate Assessment & Plan Assessment/Plan (1) Symptomatic bradycardia: PLAN: Plan #Symptomatic sinus bradycardia * Patient states started feeling on the morning of admission. Her heart rate was as low as the mid 20s and 30s. Heart rate has been in the 40s. She is on amiodarone and metoprolol for A-fib. * EKG showed sinus bradycardia. Will hold metoprolol and amiodarone. * IV atropine as needed. * Cardiology consulted and recommending a pacemaker to be done tomorrow * TSH is within normal limits at 2.38. * 2D echo ordered and to be done today. * 2D echo ordered and will be done tomorrow. Initial troponin was 47 trended down to 41. * * #History of A-fib * Hold carvedilol and amiodarone. * xarelto held and placed on therapeutic Lovenox in anticipation for pacemaker insertion likely on Thursday. * 2D echo ordered. * #UTI: * Patient was recently diagnosed with UTI started on Bactrim by her PCP. * Family concerned the Bactrim may have caused her symptoms. * Bactrim discontinued and patient now on IV ceftriaxone. Urine cultures growing mixed gram positive and gram negative rods. * Will DC IV ceftriaxone and placed on p.o. cefdinir for 5-day course. #Benign essential hypertension: * BP this morning is 151/79 * Amiodarone and carvedilol on hold. IV hydralazine as needed. * On losartan and p.o. hydralazine. # Chronic congestive heart failure with preserved ejection fraction: Not in exacerbation. Continue Lasix # Hyperlipidemia: On statin DVT prophylaxis: therapeutic lovenox CODE STATUS: Full code * Patient had opted to be DNR CCA no intubation when she came in. Today patient and daughter said they had discussed her CODE STATUS further and patient now wants to have CPR and intubation as needed. She is therefore opting for full code. * CODE STATUS therefore switched to full code. * Charges/Coding Visit Charges Inpatient E&M: 50060 Subs Hosp L2
[2025-04-03] MEDS: NETARSUDIL MESYLAT/LATANOPROST 2.5 ML DROPS 1 DRP EACH EYE (12:14)
--- NOTE | 2025-04-03 12:16 | CASEMGMT ---
JUMA FERNANDES Assessment Face to Face with patient for initial transition planning/care coordination assessment. JUMA FERNANDES introduced self and role at [facility], pt voices understanding. Pt is A&Ox4 and is resting comfortably in the chair and is calm. Pt's daughter at the bedside. Care providers, pharmacy, and demographics verified. Admitting dx: Symptomatic Bradycardia LACE Strata: 3 PCP: Anay Barnard Specialists: DELMAR. Dr Sewell (Nephro). [facility], Endocrinology, and Urology. Preferred Pharmacy: [email or web address] Insurance: [employer] Prescription Benefit: Yes LNOK: Jessa (Daughter) Living Arrangements: Pt lives alone in a ground level apartment with one step to enter. Pt's daughter lives next door. ADLs/IADLs: Indep . Transportation: Self, daughter DME: grab bars, shower chair, FWW, quad cane, bp machine, pulse ox HHC/SNF: Reports [facility] HH history. Denies SNF hx Pt?s goal: Home Plan: Home with daughters support once medically ready. Pacer placement tomorrow AM. Pt is aware that nursing will educate on care needed. Pt has been progressing well with therapy, see notes. Follow cardio consult. At this time, the pt denies the need for HH, OP Tx, SNF, or CCN. Pt states that she may start OP therapy at a later date and is aware to follow up with her PCP about this. Pt denies further questions or concerns at this time. Benito Talamantes RN, CM
--- NOTE | 2025-04-03 21:27 | PCM.HOSP.N ---
Hospitalist Note Pt having continued SBP greater than 200mmHg after nrsg had given HS dose of hydralazine 50mg early, HR in the 40s. She denies CP, FAROOQ, change in vision. Furosemide 20mg IV x1 now-LS are clear and diminished w/out pitting peripheral edema, hydralazine 10mg IV x1 now; and increased PO hydralazine to 50mg q6h, not exceeding recommended daily maximum of 300mg.
[2025-04-03] MEDS: Furosemide 20 MG/2 ML VIAL IV (21:55)
[2025-04-03] MEDS: 0.9% Saline Lock 10 ML Syringe IV (22:03)
[2025-04-04] VITALS (8 sets, daily range): BP systolic 133–217; BP diastolic 53–89; PULSE 41–65; RESP 14–16; TEMP 36.1–36.8; O2SAT 95–98
[2025-04-04] MEDS: 0.9% Normal Saline (1000mL) 1,000 ML 70 ML IV (06:53)
--- NOTE | 2025-04-04 07:25 | PN.HOSP_ITS ---
Reason for Visit Chief Complaint: dizziness Objective Data Objective Data Vital Signs: Vital Signs Temp Pulse Resp BP Pulse Ox O2 Del Method 97.4 F L 47 L 16 217/62 H 98 Room Air 04/04/25 01:20 04/04/25 06:29 04/04/25 01:20 04/04/25 06:29 04/04/25 01:20 04/04/25 01:20 Oxygen Delivery Method Room Air Weight: 130 lb 15.273 oz Body Mass Index (BMI) 23.9 Intake & Output: Intake and Output for Last 24 Hours 04/02/25 04/03/25 04/04/25 23:59 23:59 23:59 Intake Total 2050 / 2050 200 / 200 Output Total 750 / 925 375 / 375 Balance 1300 / 1125 -175 / -175 Lab / Micro Data 04/04/25 10:38 04/04/25 10:38 Micro: Microbiology 04/03/25 22:45 Interface Orders Clostridioides difficile (PCR) - Final 04/01/25 17:45 Urine, Clean Catch Urine Culture - Final Mixed Gram Pos & Gram Neg Org Rhythm Strip Rhythm Strip: Sinus bradycardia Rate: 46 Ectopy: None Physical Exam Narrative Blood pressure is high. It was 217/62 in the morning. Currently 155/89. Patient had pacemaker in the morning. Denies dysuria. Had loose bowel movement yesterday. Physical exam General: Alert, Oriented x3, Cooperative HEENT: Atraumatic, PERRLA, EOMI, Normocephalic. Oral: No Gingival or Mucosal Lesions/ Ulcerations Neck: Supple, No JVD, Negative Carotid Bruits Chest wall/Lungs: Air entry diminished in bilateral lung bases. No crepitation/rhonchi Cardiovascular: Paced rhythm, no murmur gallop or rub. Left subclavian pacemaker dressing dry. Abdomen: Bowel Sounds Present, Soft, Non Tender, Non-Distended : No dysuria. No renal angle tenderness. No suprapubic tenderness. Extremities: No edema, Capillary Refill Less than 3 Seconds Skin: No rashes, No breakdown Musculoskeletal: No Tenderness to Palpation of Joints or Extremities Neurological: Cranial nerves II-XII grossly intact, DTR 2+/4. No acute focal neurological deficit. Psych/Mental Status: Normal Affect, Appropriate. Assessment & Plan Assessment/Plan (1) Symptomatic bradycardia: PLAN: Plan Patient admitted with bradycardia. Amiodarone and beta-alejandra on hold. #Symptomatic sinus bradycardia * Her heart rate was as low as the mid 20s and 30s. Heart rate has been in the 40s. She is on amiodarone and metoprolol for A-fib. * EKG showed sinus bradycardia. Will hold metoprolol and amiodarone. * IV atropine as needed. * Cardiology consulted and recommending a pacemaker to be done tomorrow * TSH is within normal limits at 2.38. 04/04: Heart rate was in 40s in the morning. Blood pressure hide 217/62. Pacemaker in the morning. Most recent BP 133/53. Heart rate 60. installation specialist shows pacemaker spikes. Recent echo January 2025 shows EF 60%. PASP 100 mmHg, severe pulmonary hypertension. 1-2+ eccentric MR, 3+ TR #History of A-fib * Hold carvedilol and amiodarone. * xarelto held and placed on therapeutic Lovenox in anticipation for pacemaker insertion likely on Thursday. 04/04: Xarelto to be resumed after 24 hours of pacemaker insertion. #UTI ruled out. * Patient was recently diagnosed with UTI started on Bactrim by her PCP. * Family concerned the Bactrim may have caused her symptoms. * Bactrim discontinued and patient now on IV ceftriaxone. Urine cultures growing mixed gram positive and gram negative rods. Urine culture shows less than 1000 colonies of mixed gram-positive and gram- negative organism. UTI ruled out. Patient also has loose bowel movement. IV ceftriaxone discontinued #Benign essential hypertension: * BP this morning is 151/79 * Amiodarone and carvedilol on hold. * On losartan and p.o. hydralazine. 04/04: Blood pressure is very high. IV hydralazine ordered # Chronic congestive heart failure with preserved ejection fraction: Not in exacerbation. Continue Lasix # Hyperlipidemia: On statin DVT prophylaxis: therapeutic lovenox CODE STATUS: Full code * Patient had opted to be DNR CCA no intubation when she came in. Today patient and daughter said they had discussed her CODE STATUS further and patient now wants to have CPR and intubation as needed. She is therefore opting for full code. * CODE STATUS therefore switched to full code. Microbiology Past 72 Hours 04/03/25 22:45 Stool Enteric Bacteriology - Final 04/03/25 22:45 Interface Orders Clostridioides difficile (PCR) - Final 04/01/25 17:45 Urine, Clean Catch Urine Culture - Final Mixed Gram Pos & Gram Neg Org Laboratory Results 04/04/25 10:38: WBC 3.6 L, RBC 3.56 L, Hgb 11.2 L, Hct 33.9 L, MCV 95.2, MCH 31.5, MCHC 33.0, RDW Std Deviation 47.6 H, RDW Coeff of Broderick 13.6, Plt Count 171, MPV 9.9, Immature Gran % (Auto) 0.300, Neut % (Auto) 74.3 H, Lymph % (Auto) 19.0, [place] % (Auto) 3.1, Eos % (Auto) 2.5, Baso % (Auto) 0.8, Absolute Neuts (auto) 2.7, Absolute Lymphs (auto) 0.68 L, Nucleated RBC % 0, Sodium 137, Potassium 3.8, Chloride 101, Carbon Dioxide 24.3, Anion Gap 12, BUN 18, C reatinine 1.41 H, Estim Creat Clear Calc 21.81 L, Est GFR (MDRD) Non-Af 36 L, BUN/Creatinine Ratio 12.8, Glucose 126 H, Calcium 9.0 Clinical Impression(s) from Imaging Studies Chest X-Ray 04/01/25 11:20 IMPRESSION: No Acute Findings. Reading Location: [facility] ECHO 02/02/2025 Interpretation Summary Normal LV size. Left ventricular systolic function is normal. The left ventricular ejection fraction is 60 %. Pulmonary artery systolic pressure is 100 mmHg. Severe pulmonary hypertension. Epicardial fat. Charges/Coding Visit Charges Inpatient E&M: 73075 Subs Hosp L2
--- NOTE | 2025-04-04 09:20 | CL.IE_ITS ---
Patient: BERNADETTE ELIZABETH Study Date: 04/04/2025 Performing: Fredis Marie MD : 1935 Age: 89 Gender: female PROCEDURES PERFORMED [id number])INITIAL PACER INSERT+DUAL LEADS INDICATIONS Mobitz (type II) AV block PROCEDURE DETAILS The patient was brought to the Catheterization Lab in the postabsorptive nonsedated state. Informed consent was obtained prior to the procedure. Local anesthetic was given subcutaneously to the left subclavian region with Lidocaine 2%. Access was achieved and a guidewire was advanced into the left subclavian vein. Incision was made to the left subclavicular area. A peel-away sheath was inserted into the left subclavian vein. The sheath was then removed. PPM ventricular lead was inserted / positioned to right ventricular apex. PPM ventricular lead testing performed. PPM ventricular lead testing performed. A peel-away sheath was inserted into the left subclavian vein. PPM atrial lead was inserted / positioned to the right atrial appendage. PPM atrial lead testing performed. The sheath was then removed. The Ventricular PM lead sutured in place with 3-0 Silk. PPM atrial lead was repositioned and checked. PPM atrial lead testing performed. PPM atrial lead was repositioned and checked. PPM atrial lead testing performed. The Atrial lead sutured in place with 3-0 Silk. Device pocket was irrigated with antibiotic. PPM generator was attached to the lead(s) and inserted into the pocket. Subcutaneous closure was completed with 3-0 Vicryl. Skin closure was completed with 4-0 Vicryl. Instrument, sponge, and needle counts were noted to be normal. The patient tolerated the procedure well. Estimated Blood Loss: 10 ml's IMPLANTED / EX-PLANTED DEVICES IMPLANTED DEVICE(S): PPM Atrial lead - Scrap Metal Collector: [employer], Model # TENDRIL STS , Serial # [id number] PPM Atrial lead - Scrap Metal Collector: [employer], Model # TENDRIL STS , Serial # [id number] PPM Generator - Scrap Metal Collector: [employer], Model # ASSURITY MRI , Serial # [id number] DEVICE PARAMETERS ATRIAL LEAD PARAMETERS: 10V test, no diaphragmatic capture P wave- 1.7 (mV) threshold- 2.25 (V) impedence- 360 (OHMS) VENTRICULAR LEAD PARAMETERS: 10V test, no diaphragmatic capture R wave- 11.7 (mV) threshold- 0.75 (V) impedence- 690 (OHMS) DEVICE PARAMETERS: Mode- DDD Lower rate- 60 Upper rate- 120 CONCLUSIONS / RECOMMENDATIONS Device Conclusions: Successful implantation of a dual chamber pacemaker Device Recommendations: Follow up with Primary Care Physician PROCEDURE MEDICATIONS Versed 1 mg IV Fentanyl 25 mcg IV Oxygen: 2 L/min via nasal cannula Antibiotic given in appropriate timeframe. Benadryl 50 mg IV @ 04/04/2025 07:49:44 Clindamycin 100 mg IV 04/04/2025 07:52:46 Solu-medrol 125 mg IV 04/04/2025 07:49:38 Signed By Fredis Marie MD On 04/04/2025 09:19:14 Fredis Marie MD
--- NOTE | 2025-04-04 09:24 | PCM.PN.CARD ---
Subjective Subjective Patient seen and evaluated. Doing well underwent pacemaker placement this morning Objective Data Vital Signs: Vital Signs Temp Pulse Resp BP Pulse Ox O2 Del Method 97.4 F L 47 L 16 217/62 H 98 Room Air 04/04/25 01:20 04/04/25 06:29 04/04/25 01:20 04/04/25 06:29 04/04/25 01:20 04/04/25 01:20 Oxygen Delivery Method Room Air Weight: 130 lb 15.273 oz Body Mass Index (BMI) 23.9 Intake & Output: Intake and Output for Last 24 Hours 04/02/25 04/03/25 04/04/25 23:59 23:59 23:59 Intake Total 2049 / 2049 200 / 200 Output Total 750 / 925 375 / 375 Balance 1300 / 1125 -175 / -175 Lab / Micro Data 04/03/25 03:07 04/03/25 03:07 Micro: Microbiology 04/03/25 22:45 Stool Enteric Bacteriology - Final 04/03/25 22:45 Interface Orders Clostridioides difficile (PCR) - Final 04/01/25 17:45 Urine, Clean Catch Urine Culture - Final Mixed Gram Pos & Gram Neg Org Rhythm Strip Rhythm Strip: Sinus bradycardia Rate: 46 Ectopy: None Cardiology Labs/Tests Rhythm: EKG: ECHO: Stress Test: Cardiac Cath: PCI: CT Surgery: Holter monitor: EPS: PPM: CXR: Chest CT Scan: Physical Exam Const alert, oriented x3 and no apparent distress General Appearance: cooperative HEENT hearing grossly normal bilaterally Head and Scalp: atraumatic Eyes EOMs intact bilaterally Neck General: normal visual inspection Chest inspection of chest normal and palpation of chest normal Resp normal respiratory effort Auscultation: clear to auscultation bilaterally Cardio regular rate, regular rhythm, S1 normal heart sound and S2 normal heart sound Jugular Venous Distention: JVD GI normal to inspection, nondistended, normoactive bowel sounds Extremity normal capillary refill and no pedal edema Peripheral Pulses: Yes pulses 2+ throughout and femoral pulses present Skin no rashes or lesions noted Neuro oriented x3 and CN's II-XII intact bilaterally Psych Appearance: grossly normal and appropriate Assessment & Plan Assessment/Plan (1) History of atrial fibrillation: PLAN: 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 Her amiodarone, carvedilol, Xarelto are on hold. This can hopefully be resumed as an outpatient. (2) Symptomatic bradycardia: PLAN: Patient came in with heart rate in the 20s according to ER notes. She underwent placement of a dual-chamber pacemaker today. This to be interrogated tomorrow and she will be followed up in our device clinic. (3) Essential hypertension: PLAN: Her blood pressure is uncontrolled. She is on losartan and I will suggest we start nifedipine XL 60 mg a day. Her carvedilol can be added on as an outpatient.
--- NOTE | 2025-04-04 09:44 | NURSING ---
Pacer rep educating pt and family on pacer device and home monitoring box
[2025-04-04 10:48] LABS: Hematocrit 33.9 % (37-47); Hemoglobin 11.2 g/dL (12.0-15.0); Immature Granulocytes Count 0.010 X10^3/uL (0.0-0.0); Mean Corp Hgb Conc 33.0 g/dL (32-36); Mean Corpuscular Volume 95.2 fL (81-99); Mean Platelet Vol. 9.9 fl (6.2-12.0); NRBC Flagged by Analyzer 0 % (0-5); Platelet Count 171 K/mm3 (150-450); RBC Distribution Width CV 13.6 % (11.6-14.6); RBC Distribution Width SD 47.6 fl (35.1-43.9); Red Blood Count 3.56 M/mm3 (4.2-5.4); White Blood Count 3.6 K/mm3 (4.4-11.0)
[2025-04-04] MEDS: BRIMONIDINE 0.15% 5 ML Bottle 1 DRP OPHTHALMIC ×2 (11:05→21:41)
[2025-04-04] MEDS: NIFEdipine 60 MG Tablet PO (11:08)
[2025-04-04] MEDS: Timolol 0.5% 5ML OPTH.BTL 1 DRP RIGHT EYE ×2 (11:09→21:40)
[2025-04-04] MEDS: NETARSUDIL MESYLAT/LATANOPROST 2.5 ML DROPS 1 DRP EACH EYE (11:10)
[2025-04-04] MEDS: Cholecalciferol (VIT D3) 25 MCG TABLET (1,000 UNITS) 50 MCG PO (11:11)
[2025-04-04 11:32] LABS: Anion Gap 12 (5-15); BUN 18 mg/dL (4-19); BUN/Creat Ratio 12.8 RATIO (10-20); Calcium,Total 9.0 mg/dL (7.6-11.0); Carbon Dioxide 24.3 mmol/L (21.0-32.0); Chloride 101 mmol/L (98-108); Estimated Creatinine Clearance 21.81 ml/min (50-250); Glucose 126 mg/dL (70-99); Potassium 3.8 mmol/L (3.3-5.1)
[2025-04-05 03:30] VITALS: BP 145/59; PULSE 60; RESP 16; TEMP 36.5; O2SAT 95
--- NOTE | 2025-04-05 05:00 | RAD_ITS ---
PROCEDURE: CHEST PA AND LATERAL 04/05/2025 REASON FOR EXAM: POST PERMANENT ICD/PACEMAKER TECHNIQUE: Procedure Code: RADCXR Modality: DX Procedure: CHEST PA AND LATERAL COMPARISON: April 01, 2025 FINDINGS: Hardware: Dual lead pacemaker is in place with its lead tips overlying the right atrium and right ventricular apex. Heart: Enlarged Mediastinum: No mass Lungs: Central congestion is seen. Subsegmental atelectasis left lung base. No pneumothorax or pleural effusion. Bones: Degenerative changes are identified within the thoracic spine. RAD/Chest PA and Lateral IMPRESSION: No pneumothorax. Central congestion, cardiac enlargement. Reading Location: [id number]
[2025-04-05 05:23] VITALS: BP 148/58; PULSE 60; RESP 16; TEMP 36.6; O2SAT 95
[2025-04-05 05:26] VITALS: BP 148/58; PULSE 60
[2025-04-05 05:54] LABS: Hematocrit 34.8 % (37-47); Hemoglobin 11.6 g/dL (12.0-15.0); Immature Granulocytes Count 0.030 X10^3/uL (0.0-0.0); Mean Corp Hgb Conc 33.3 g/dL (32-36); Mean Corpuscular Volume 93.5 fL (81-99); Mean Platelet Vol. 9.8 fl (6.2-12.0); NRBC Flagged by Analyzer 0 % (0-5); Platelet Count 210 K/mm3 (150-450); RBC Distribution Width CV 13.3 % (11.6-14.6); RBC Distribution Width SD 45.7 fl (35.1-43.9); Red Blood Count 3.72 M/mm3 (4.2-5.4); White Blood Count 8.4 K/mm3 (4.4-11.0)
[2025-04-05 06:26] LABS: Anion Gap 12 (5-15); BUN 25 mg/dL (4-19); BUN/Creat Ratio 18.3 RATIO (10-20); Calcium,Total 8.7 mg/dL (7.6-11.0); Carbon Dioxide 23.6 mmol/L (21.0-32.0); Chloride 100 mmol/L (98-108); Estimated Creatinine Clearance 22.61 ml/min (50-250); Glucose 128 mg/dL (70-99); Potassium 3.9 mmol/L (3.3-5.1)
--- NOTE | 2025-04-05 08:00 | PCM.DC ---
Discharge Instructions DC O2, CPAP, BIPAP needs Home O2 Discharge instructions: No Dressing / Incision Discharge Activity: Return to Normal Activity and May Not Drive Weight Bearing Status: Weight bearing as tolerated Dressing / Incision Call your doctor if you observe: Fever of 101 or Higher, Coldness, Increased Pain, Numbness or Tingling, Change in Color, Inability to urinate, Inability to have a bowel movement, Shortness of breath, Dizziness, Fainting spells, Swelling in the ankles, Chest pain, Prolonged hiccupping, Increased palpitations (irregular heartbeat) and Calf discomfort Follow Up Care When: IN 2 WEEKS Test Results: Test results from this visit will be discussed in further detail at your follow-up appointment, if applicable. Discharge Plan Admission Admit Date/Time: 04/01/25 12:50 Primary Reason for Your Visit: Tachybradycardia syndrome. Hypertensive urgency Attending Provider: Rory Trevizo Primary Care Provider: Anay Barnard Consulting Providers: Neil Arroyo; Sarah Nash Discharge Orders/Prescriptions Prescriptions: New nifedipine 60 mg Tablet Extended Release 24hr 60 mg PO DAILY 30 Days Qty: 30 2RF hydralazine 100 mg tablet 100 mg PO TID 30 Days Qty: 90 0RF Rx Instructions: Hold for SBP less than 130 mmHg Continued levothyroxine 25 mcg tablet 25 mcg PO DAILY brimonidine 0.15 % drops 1 drp ophthalmic (eye) BID Rx Instructions: right eye omeprazole 40 mg capsule,delayed release(DR/EC) 40 mg PO DAILY Prolia 60 mg/mL syringe 60 mg subcut [id number] Patient Comments: STARTS END UP SEPTEMBER. mecobalamin (vitamin B12) 1,000 mcg tablet,chewable 1,000 mcg PO DAILY cholecalciferol (vitamin D3) 50 mcg (2,000 unit) capsule 50 mcg PO QDAY furosemide [Lasix] 20 mg tablet 20 mg PO .EOD Patient Comments: pt states only taking re 3 days a week depending on ankle swelling Gemtesa 75 mg tablet 75 mg PO DAILY Qty: 90 3RF atorvastatin 20 MG tablet 20 mg PO QODAY Patient Comments: CHOLESTEROL timolol maleate 1 DROP drops 1 drp RIGHT EYE BID Patient Comments: EYE DROPS ferrous sulfate [Feosol] 325 mg (65 mg iron) tablet 325 mg PO DAILY Rocklatan 0.02-0.005 % drops 1 drp ophthalmic (eye) DAILY potassium chloride 10 mEq capsule, extended release 10 meq PO BID Patient Comments: only when taking the lasix losartan 50 mg tablet 50 mg PO BID Qty: 180 4RF Xarelto 15 mg tablet 15 mg PO DINNER Qty: 30 11RF Rx Instructions: must administer with evening meal Held carvedilol 3.125 mg tablet 3.125 mg PO BID Qty: 60 11RF Hold Instructions: Hold until follows pad machine operator Rx Instructions: must administer with a meal/food amiodarone 200 mg tablet 100 mg PO QDAY Qty: 60 11RF Hold Instructions: Hold until follows pad machine operator Discontinued hydralazine 50 mg tablet 50 mg PO TID Qty: 90 11RF Referrals / Follow Up: [facility] [Provider Group, Cardiology] - 04/12/25 1:00 pm Referral Note: Appointment is with Treva Mendez RN Cardiac Device Nurse. Anay Barnard MD [Primary Care Provider, Internal Medicine] Disposition Disposition (needs filled in before D/C Order can be placed): Home, Self Care
--- NOTE | 2025-04-05 08:22 | PN.CARD_ITS ---
Subjective Subjective Patient seen and evaluated. Objective Data Vital Signs: Vital Signs Temp Pulse Resp BP Pulse Ox O2 Del Method 97.8 F 60 16 148/58 H 95 Room Air 04/05/25 05:23 04/05/25 05:26 04/05/25 05:23 04/05/25 05:26 04/05/25 05:23 04/05/25 08:05 Oxygen Delivery Method Room Air Weight: 130 lb 15.273 oz Body Mass Index (BMI) 23.9 Intake & Output: Intake and Output for Last 24 Hours 04/03/25 04/04/25 04/05/25 23:59 23:59 23:59 Intake Total 200 / 200 802.17 / 802.17 Output Total 375 / 375 500 / 1100 950 / 950 Balance -175 / -175 302.17 / -297.83 -950 / -950 Lab / Micro Data 04/05/25 05:14 04/05/25 05:14 Labs: Laboratory Results - last 24 hr 04/04/25 10:38: WBC 3.6 L, RBC 3.56 L, Hgb 11.2 L, Hct 33.9 L, MCV 95.2, MCH 31.5, MCHC 33.0, RDW Std Deviation 47.6 H, RDW Coeff of Broderick 13.6, Plt Count 171, MPV 9.9, Immature Gran % (Auto) 0.300, Neut % (Auto) 74.3 H, Lymph % (Auto) 19.0, [place] % (Auto) 3.1, Eos % (Auto) 2.5, Baso % (Auto) 0.8, Absolute Neuts (auto) 2.7, Absolute Lymphs (auto) 0.68 L, Nucleated RBC % 0, Sodium 137, Potassium 3.8, Chloride 101, Carbon Dioxide 24.3, Anion Gap 12, BUN 18, C reatinine 1.41 H, Estim Creat Clear Calc 21.81 L, Est GFR (MDRD) Non-Af 36 L, BUN/Creatinine Ratio 12.8, Glucose 126 H, Calcium 9.0 04/05/25 05:14: WBC 8.4, RBC 3.72 L, Hgb 11.6 L, Hct 34.8 L, MCV 93.5, MCH 31.2, MCHC 33.3, RDW Std Deviation 45.7 H, RDW Coeff of Broderick 13.3, Plt Count 210, MPV 9.8, Immature Gran % (Auto) 0.400, Neut % (Auto) 83.6 H, Lymph % (Auto) 10.3 L, [place] % (Auto) 5.6, Eos % (Auto) 0.0, Baso % (Auto) 0.1, Absolute Neuts (auto) 7.1, Absolute Lymphs (auto) 0.87, Nucleated RBC % 0, Sodium 136, Potassium 3.9, Chloride 100, Carbon Dioxide 23.6, Anion Gap 12, BUN 25 H, Creatinine 1.36 H, E stim Creat Clear Calc 22.61 L, Est GFR (MDRD) Non-Af 37 L, BUN/Creatinine Ratio 18.3, Glucose 128 H, Calcium 8.7 Micro: Microbiology 04/03/25 22:45 Stool Enteric Bacteriology - Final 04/03/25 22:45 Interface Orders Clostridioides difficile (PCR) - Final Rhythm Strip Rhythm Strip: Sinus bradycardia Rate: 46 Ectopy: None Cardiology Labs/Tests 04/04/25 10:38: WBC 3.6 L, RBC 3.56 L, Hgb 11.2 L, Hct 33.9 L, MCV 95.2, MCH 31.5, MCHC 33.0, Plt Count 171, MPV 9.9, Immature Gran % (Auto) 0.300, Neut % (Auto) 74.3 H, Lymph % (Auto) 19.0, [place] % (Auto) 3.1, Eos % (Auto) 2.5, Baso % (Auto) 0.8, Absolute Neuts (auto) 2.7, Nucleated RBC % 0, Sodium 137, Potassium 3.8, Chloride 101, Carbon Dioxide 24.3, Anion Gap 12, BUN 18, Creatinine 1.41 H, Est GFR (MDRD) Non-Af 36 L, BUN/Creatinine Ratio 12.8, Glucose 126 H, Calcium 9.0 04/05/25 05:14: WBC 8.4, RBC 3.72 L, Hgb 11.6 L, Hct 34.8 L, MCV 93.5, MCH 31.2, MCHC 33.3, Plt Count 210, MPV 9.8, Immature Gran % (Auto) 0.400, Neut % (Auto) 83.6 H, Lymph % (Auto) 10.3 L, [place] % (Auto) 5.6, Eos % (Auto) 0.0, Baso % (Auto) 0.1, Absolute Neuts (auto) 7.1, Nucleated RBC % 0, Sodium 136, Potassium 3.9, Chloride 100, Carbon Dioxide 23.6, Anion Gap 12, BUN 25 H, Creatinine 1.36 H, Est GFR (MDRD) Non-Af 37 L, BUN/Creatinine Ratio 18.3, Glucose 128 H, Calcium 8.7 Rhythm: EKG: ECHO: Stress Test: Cardiac Cath: PCI: CT Surgery: Holter monitor: EPS: PPM: CXR: Chest CT Scan: Radiography Diagnostic Testing: Radiology Impression Chest X-Ray 04/05/25 05:00 IMPRESSION: No pneumothorax. Central congestion, cardiac enlargement. Reading Location: [facility] Physical Exam Const alert, oriented x3 and no apparent distress General Appearance: cooperative HEENT hearing grossly normal bilaterally Head and Scalp: atraumatic Eyes EOMs intact bilaterally Neck General: normal visual inspection Chest inspection of chest normal and palpation of chest normal Resp normal respiratory effort Auscultation: clear to auscultation bilaterally Cardio regular rate, regular rhythm, S1 normal heart sound and S2 normal heart sound Jugular Venous Distention: JVD GI normal to inspection, nondistended, normoactive bowel sounds Extremity normal capillary refill and no pedal edema Peripheral Pulses: Yes pulses 2+ throughout and femoral pulses present Skin no rashes or lesions noted Neuro oriented x3 and CN's II-XII intact bilaterally Psych Appearance: grossly normal and appropriate Assessment & Plan Assessment/Plan (1) History of atrial fibrillation: PLAN: 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 Her amiodarone, carvedilol, Xarelto are on hold. This can hopefully be resumed as an outpatient. (2) Symptomatic bradycardia: PLAN: Patient came in with heart rate in the 20s according to ER notes. She underwent placement of a dual-chamber pacemaker. Chest x-ray demonstrates good positioning and pacemaker checks and just good functioning. Will discharge for outpatient follow-up and to be follow-up in our device clinic. (3) Essential hypertension: PLAN: Her blood pressure is uncontrolled. She is on losartan and I will suggest we start nifedipine XL 60 mg a day. Her carvedilol can be added on as an outpatient.
--- NOTE | 2025-04-05 08:23 | DCINST_ITS ---
Discharge Instructions DC O2, CPAP, BIPAP needs Home O2 Discharge instructions: No Dressing / Incision Discharge Activity: May Not Drive May shower in (days): 2 Additional Activity Instructions:: May shower or bathe on [day 3]. Do not scrub the incision or soak in the tub. Just wash with soap and let the water run over the incision. Gently pat dry with towel. Medications: Take your pain medication as directed. Refer to your discharge instruction sheet for a list of medications you are to take. Dressing / Incision Call your doctor if your incision/area has: Continuous Slow Oozing, Sudden Increased Bleeding, Increased Pain/ Swelling, Increased Redness, Foul Smelling Discharge and Swelling at the incision site Call your doctor if you observe: Fever of 101 or Higher, Shortness of breath, Dizziness, Fainting spells, Swelling in the ankles, Chest pain, Prolonged hiccupping and Increased palpitations (irregular heartbeat) Suture Line Care: Avoid Pulling/Pushing and Avoid Pinching/Bending Cleanse incision/area with: Do not get Incision Wet and Keep Dressing Clean & Dry Additional Dressing/Incision Instructions:: When dressing is removed, wash and dry incision. Keep covered with a light bandage if it is rubbing against your clothing. Do not cover the incision with an airtight bandage. Change the bandage daily. Do not remove steri strips. The strips will fall off on their own. Follow Up Care Please Follow Up With: Fredis Marie MD When: Pacer follow-up on April 12 at 1 PM. In the device clinic. Test Results: Test results from this visit will be discussed in further detail at your follow- up appointment, if applicable. Discharge Plan Admission Admit Date/Time: 04/01/25 12:50 Attending Provider: Rory Trevizo Primary Care Provider: Anay Barnard Consulting Providers: Neil Arroyo; Sarah Nash Discharge Orders/Prescriptions Prescriptions: No Action levothyroxine 25 mcg tablet 25 mcg PO DAILY brimonidine 0.15 % drops 1 drp ophthalmic (eye) BID Rx Instructions: right eye omeprazole 40 mg capsule,delayed release(DR/EC) 40 mg PO DAILY Prolia 60 mg/mL syringe 60 mg subcut [id number] Patient Comments: STARTS END UP SEPTEMBER. mecobalamin (vitamin B12) 1,000 mcg tablet,chewable 1,000 mcg PO DAILY cholecalciferol (vitamin D3) 50 mcg (2,000 unit) capsule 50 mcg PO QDAY furosemide [Lasix] 20 mg tablet 20 mg PO .EOD Patient Comments: pt states only taking re 3 days a week depending on ankle swelling carvedilol 3.125 mg tablet 3.125 mg PO BID Qty: 60 11RF Rx Instructions: must administer with a meal/food hydralazine 50 mg tablet 50 mg PO TID Qty: 90 11RF Gemtesa 75 mg tablet 75 mg PO DAILY Qty: 90 3RF atorvastatin 20 MG tablet 20 mg PO QODAY Patient Comments: CHOLESTEROL timolol maleate 1 DROP drops 1 drp RIGHT EYE BID Patient Comments: EYE DROPS ferrous sulfate [Feosol] 325 mg (65 mg iron) tablet 325 mg PO DAILY Rocklatan 0.02-0.005 % drops 1 drp ophthalmic (eye) DAILY potassium chloride 10 mEq capsule, extended release 10 meq PO BID Patient Comments: only when taking the lasix losartan 50 mg tablet 50 mg PO BID Qty: 180 4RF amiodarone 200 mg tablet 100 mg PO QDAY Qty: 60 11RF Xarelto 15 mg tablet 15 mg PO DINNER Qty: 30 11RF Rx Instructions: must administer with evening meal Referrals / Follow Up: Anay Barnard MD [Primary Care Provider, Internal Medicine]
[2025-04-05 09:24] VITALS: BP 140/53; PULSE 61; RESP 16; TEMP 36.4; O2SAT 97
[2025-04-05] MEDS: NETARSUDIL MESYLAT/LATANOPROST 2.5 ML DROPS 1 DRP EACH EYE (09:27)
[2025-04-05] MEDS: BRIMONIDINE 0.15% 5 ML Bottle 1 DRP OPHTHALMIC (09:27)
[2025-04-05] MEDS: Timolol 0.5% 5ML OPTH.BTL 1 DRP RIGHT EYE (09:27)
[2025-04-05] MEDS: NIFEdipine 60 MG Tablet PO (09:28)
[2025-04-05] MEDS: Cholecalciferol (VIT D3) 25 MCG TABLET (1,000 UNITS) 50 MCG PO (09:28)
--- NOTE | 2025-04-05 09:51 | DS.PCM_ITS ---
Providers Date of Admission: 04/01/25 Date of Discharge: 04/05/25 Primary Care Physician: Dr. Anay Barnard MD Consultations 04/01/25 14:37 Consult: Cardiology Routine Consulting Provider: Neil Arroyo Reason for Consult: symptomatic bradycardia EMERGENT Consult: No MD Notified: Yes Date Notified: 04/01/25 Time Notified: 14:38 Method of Notification: Text Reason For Visit: SYMPTOMATIC BRADYCARDIA Diagnosis Discharge Diagnosis (1) History of atrial fibrillation: Status: Acute Code(s): Z86.79 - Personal history of other diseases of the circulatory system (2) Symptomatic bradycardia: Status: Acute Code(s): R00.1 - Bradycardia, unspecified (3) Essential hypertension: Status: Chronic Code(s): I10 - Essential (primary) hypertension Plan Patient was admitted with dizziness, low heart rate dropping into the 20s in triage and then went up to 140s. Amiodarone and beta-alejandra on hold. Amiodarone and beta-alejandra on hold. #Symptomatic sinus bradycardia/sick sinus syndrome/tachybradycardia syndrome * Her heart rate was as low as the mid 20s and 30s. Heart rate has been in the 40s. She is on amiodarone and metoprolol for A-fib. * EKG showed sinus bradycardia. Will hold metoprolol and amiodarone. * IV atropine as needed. * Cardiology consulted and recommending a pacemaker to be done tomorrow * TSH is within normal limits at 2.38. 04/04: Heart rate was in 40s in the morning. Blood pressure hide 217/62. Pacemaker in the morning. Most recent BP 133/53. Heart rate 60. brusher machine shows pacemaker spikes. Recent echo January 2025 shows EF 60%. PASP 100 mmHg, severe pulmonary hypertension. 1-2+ eccentric MR, 3+ TR 04/05: Discussed with the fire alarm operator. Patient is discharged and advised follow-up in the [place] cardiology office as mentioned in discharge instruction. #History of A-fib * Hold carvedilol and amiodarone. * xarelto held and placed on therapeutic Lovenox in anticipation for pacemaker insertion likely on Thursday. 04/04: Xarelto to be resumed after 24 hours of pacemaker insertion. 04/05: Xarelto resumed. #UTI ruled out. * Patient was recently diagnosed with UTI started on Bactrim by her PCP. * Family concerned the Bactrim may have caused her symptoms. * Bactrim discontinued and patient now on IV ceftriaxone. Urine cultures growing mixed gram positive and gram negative rods. Urine culture shows less than 1000 colonies of mixed gram-positive and gram- negative organism. UTI ruled out. Patient also has loose bowel movement. IV ceftriaxone discontinued #Benign essential hypertension/hypertensive urgency: * BP this morning is 151/79 * Amiodarone and carvedilol on hold. * On losartan and p.o. hydralazine. 04/04: Blood pressure is very high. IV hydralazine ordered 04/05: Blood pressure is controlled on hydralazine 100 mg 3 times daily, Procardia XL 60 mg daily and losartan 50 mg twice daily. # Chronic congestive heart failure with preserved ejection fraction: Not in exacerbation. Continue Lasix home dosing # Hyperlipidemia: On statin DVT prophylaxis: therapeutic lovenox CODE STATUS: Full code * Patient had opted to be DNR CCA no intubation when she came in. Today patient and daughter said they had discussed her CODE STATUS further and patient now wants to have CPR and intubation as needed. She is therefore opting for full code. * CODE STATUS therefore switched to full code. * Discharge medication reconciliation done. Discharge follow-up instructions completed. Discharge process discussed with the patient and all questions were answered to patient's satisfaction. Follow with PCP in 1 to 2 weeks Total time spent, exact 35 minutes on discharge meds reconciliation, examination, coordination of care with nurses and ancillary staff, review of imaging and blood test and discussion with the patient on follow-up instructions. Microbiology Past 72 Hours 04/03/25 22:45 Stool Enteric Bacteriology - Final 04/03/25 22:45 Interface Orders Clostridioides difficile (PCR) - Final 04/01/25 17:45 Urine, Clean Catch Urine Culture - Final Mixed Gram Pos & Gram Neg Org Laboratory Results 04/04/25 10:38: WBC 3.6 L, RBC 3.56 L, Hgb 11.2 L, Hct 33.9 L, MCV 95.2, MCH 31.5, MCHC 33.0, RDW Std Deviation 47.6 H, RDW Coeff of Broderick 13.6, Plt Count 171, MPV 9.9, Immature Gran % (Auto) 0.300, Neut % (Auto) 74.3 H, Lymph % (Auto) 19.0, Kendall % (Auto) 3.1, Eos % (Auto) 2.5, Baso % (Auto) 0.8, Absolute Neuts (auto) 2.7, Absolute Lymphs (auto) 0.68 L, Nucleated RBC % 0, Sodium 137, Potassium 3.8, Chloride 101, Carbon Dioxide 24.3, Anion Gap 12, BUN 18, C reatinine 1.41 H, Estim Creat Clear Calc 21.81 L, Est GFR (MDRD) Non-Af 36 L, BUN/Creatinine Ratio 12.8, Glucose 126 H, Calcium 9.0 Clinical Impression(s) from Imaging Studies Chest X-Ray 04/01/25 11:20 IMPRESSION: No Acute Findings. Reading Location: [facility] [place] ECHO 02/02/2025 Interpretation Summary Normal LV size. Left ventricular systolic function is normal. The left ventricular ejection fraction is 60 %. Pulmonary artery systolic pressure is 100 mmHg. Severe pulmonary hypertension. Epicardial fat. Medications at Discharge Home Medications atorvastatin 20 mg tablet 20 mg PO QODAY Cholesterol 12/06/16 timolol maleate 0.5 % eye drops 1 drp RIGHT EYE BID eye drops 12/06/16 brimonidine 0.15 % eye drops 1 drp ophthalmic (eye) BID eye health 03/25/22 levothyroxine 25 mcg tablet 25 mcg PO DAILY thyroid 03/25/22 losartan 50 mg tablet 50 mg PO BID bp #180 tabs 07/11/22 mecobalamin (vitamin B12) 1,000 mcg chewable tablet 1,000 mcg PO DAILY supplement 05/08/23 denosumab 60 mg/mL subcutaneous syringe (Prolia) 60 mg subcut [id number] bone health 08/20/23 ferrous sulfate 325 mg (65 mg iron) tablet (Feosol) 325 mg PO DAILY supplement 10/30/24 netarsudil 0.02 %-latanoprost 0.005 % eye drops (Rocklatan) 1 drp ophthalmic (eye) DAILY cataract 10/30/24 furosemide 20 mg tablet (Lasix) 20 mg PO .EOD edema 11/11/24 omeprazole 40 mg capsule,delayed release 40 mg PO DAILY gerd 11/11/24 carvedilol 3.125 mg tablet 3.125 mg PO BID #60 tabs 11/25/24 Held on 04/05/25. Instructions: Hold until follows fire alarm operator cholecalciferol (vitamin D3) 50 mcg (2,000 unit) capsule 50 mcg PO QDAY supplement 11/25/24 amiodarone 200 mg tablet 100 mg (1/2 x 200 mg) PO QDAY #60 tabs 12/22/24 Held on 04/05/25. Instructions: Hold until follows fire alarm operator Gemtesa 75 mg tablet (vibegron) 75 mg PO DAILY bladder #90 tabs 02/22/25 rivaroxaban 15 mg tablet (Xarelto) 15 mg PO DINNER blood thinner #30 tabs 03/27/25 potassium chloride 10 mEq capsule,extended release 10 meq PO BID low potassium 04/01/25 hydralazine 100 mg tablet 100 mg PO TID 1 month #90 tabs 04/05/25 nifedipine 60 mg tablet,extended release 24 hr 60 mg PO DAILY 30 days #30 tabs 04/05/25 Physical Exam Narrative Blood pressure was high. BP controlled, most recent 140/53. Heart rate 61. Cardiac telemetry shows pacemaker spikes and capturing of heart beat. Patient had pacemaker on 04/04/2025. Denies dysuria. Physical exam General: Alert, Oriented x3, Cooperative HEENT: Atraumatic, PERRLA, EOMI, Normocephalic. Oral: No Gingival or Mucosal Lesions/ Ulcerations Neck: Supple, No JVD, Negative Carotid Bruits Chest wall/Lungs: Air entry diminished in bilateral lung bases. No crepitation/rhonchi Cardiovascular: Paced rhythm, no murmur gallop or rub. Left subclavian pacemaker dressing dry. Abdomen: Bowel Sounds Present, Soft, Non Tender, Non-Distended : No dysuria. No renal angle tenderness. No suprapubic tenderness. Extremities: No edema, Capillary Refill Less than 3 Seconds Skin: No rashes, No breakdown Musculoskeletal: No Tenderness to Palpation of Joints or Extremities Neurological: Cranial nerves II-XII grossly intact, DTR 2+/4. No acute focal neurological deficit. Psych/Mental Status: Normal Affect, Appropriate. Weight / BMI Weight Weight: 130 lb 15.273 oz Body Mass Index (BMI) 23.9 ABG / Lab / Microbiology Data 04/05/25 05:14 04/05/25 05:14 Laboratory: Laboratory Results - last 24 hr 04/04/25 10:38: WBC 3.6 L, RBC 3.56 L, Hgb 11.2 L, Hct 33.9 L, MCV 95.2, MCH 31.5, MCHC 33.0, RDW Std Deviation 47.6 H, RDW Coeff of Broderick 13.6, Plt Count 171, MPV 9.9, Immature Gran % (Auto) 0.300, Neut % (Auto) 74.3 H, Lymph % (Auto) 19.0, Kendall % (Auto) 3.1, Eos % (Auto) 2.5, Baso % (Auto) 0.8, Absolute Neuts (auto) 2.7, Absolute Lymphs (auto) 0.68 L, Nucleated RBC % 0, Sodium 137, Potassium 3.8, Chloride 101, Carbon Dioxide 24.3, Anion Gap 12, BUN 18, C reatinine 1.41 H, Estim Creat Clear Calc 21.81 L, Est GFR (MDRD) Non-Af 36 L, BUN/Creatinine Ratio 12.8, Glucose 126 H, Calcium 9.0 04/05/25 05:14: WBC 8.4, RBC 3.72 L, Hgb 11.6 L, Hct 34.8 L, MCV 93.5, MCH 31.2, MCHC 33.3, RDW Std Deviation 45.7 H, RDW Coeff of Broderick 13.3, Plt Count 210, MPV 9.8, Immature Gran % (Auto) 0.400, Neut % (Auto) 83.6 H, Lymph % (Auto) 10.3 L, Kendall % (Auto) 5.6, Eos % (Auto) 0.0, Baso % (Auto) 0.1, Absolute Neuts (auto) 7.1, Absolute Lymphs (auto) 0.87, Nucleated RBC % 0, Sodium 136, Potassium 3.9, Chloride 100, Carbon Dioxide 23.6, Anion Gap 12, BUN 25 H, Creatinine 1.36 H, E stim Creat Clear Calc 22.61 L, Est GFR (MDRD) Non-Af 37 L, BUN/Creatinine Ratio 18.3, Glucose 128 H, Calcium 8.7 Microbiology: Microbiology 04/03/25 22:45 Stool Enteric Bacteriology - Final 04/03/25 22:45 Interface Orders Clostridioides difficile (PCR) - Final 04/01/25 17:45 Urine, Clean Catch Urine Culture - Final Mixed Gram Pos & Gram Neg Org Radiography Diagnostic Testing: Radiology Impression Chest X-Ray 04/05/25 05:00 IMPRESSION: No pneumothorax. Central congestion, cardiac enlargement. Reading Location: [id number] Instructions May shower in (days): 2 Weight Bearing Status: Weight bearing as tolerated Additional Activity Instructions: May shower or bathe on [day 3]. Do not scrub the incision or soak in the tub. Just wash with soap and let the water run over the incision. Gently pat dry with towel. Medications: Take your pain medication as directed. Refer to your discharge instruction sheet for a list of medications you are to take. Call your doctor if your incision/area has: Continuous Slow Oozing, Sudden Increased Bleeding, Increased Pain/ Swelling, Increased Redness, Foul Smelling Discharge and Swelling at the incision site Call your doctor if you observe: Fever of 101 or Higher, Coldness, Increased Pain, Numbness or Tingling, Change in Color, Inability to urinate, Inability to have a bowel movement, Shortness of breath, Dizziness, Fainting spells, Swelling in the ankles, Chest pain, Prolonged hiccupping, Increased palpitations (irregular heartbeat) and Calf discomfort Suture Line Care: Avoid Pulling/Pushing and Avoid Pinching/Bending Cleanse incision/area with: Do not get Incision Wet and Keep Dressing Clean & Dry Additional Dressing/Incision Instructions: When dressing is removed, wash and dry incision. Keep covered with a light bandage if it is rubbing against your clothing. Do not cover the incision with an airtight bandage. Change the bandage daily. Do not remove steri strips. The strips will fall off on their own. DC O2, CPAP, BIPAP Needs Home O2 Discharge instructions: No Please Follow Up With: Fredis Marie MD When: IN 2 WEEKS Meaningful Use Info Meaningful Use Meaningful Use Diagnoses (Choose all that apply): None applicable Discharge Plan Admission Admit Date/Time: 04/01/25 12:50 Primary Reason for Your Visit: Tachybradycardia syndrome. Hypertensive urgency Attending Provider: Rory Trevizo Primary Care Provider: Anay Barnard Consulting Providers: Neil Arroyo; Sarah Nash Discharge Orders/Prescriptions Prescriptions: New nifedipine 60 mg Tablet Extended Release 24hr 60 mg PO DAILY 30 Days Qty: 30 2RF hydralazine 100 mg tablet 100 mg PO TID 30 Days Qty: 90 0RF Rx Instructions: Hold for SBP less than 130 mmHg Continued levothyroxine 25 mcg tablet 25 mcg PO DAILY brimonidine 0.15 % drops 1 drp ophthalmic (eye) BID Rx Instructions: right eye omeprazole 40 mg capsule,delayed release(DR/EC) 40 mg PO DAILY Prolia 60 mg/mL syringe 60 mg subcut [id number] Patient Comments: STARTS END UP SEPTEMBER. mecobalamin (vitamin B12) 1,000 mcg tablet,chewable 1,000 mcg PO DAILY cholecalciferol (vitamin D3) 50 mcg (2,000 unit) capsule 50 mcg PO QDAY furosemide [Lasix] 20 mg tablet 20 mg PO .EOD Patient Comments: pt states only taking re 3 days a week depending on ankle swelling Gemtesa 75 mg tablet 75 mg PO DAILY Qty: 90 3RF atorvastatin 20 MG tablet 20 mg PO QODAY Patient Comments: CHOLESTEROL timolol maleate 1 DROP drops 1 drp RIGHT EYE BID Patient Comments: EYE DROPS ferrous sulfate [Feosol] 325 mg (65 mg iron) tablet 325 mg PO DAILY Rocklatan 0.02-0.005 % drops 1 drp ophthalmic (eye) DAILY potassium chloride 10 mEq capsule, extended release 10 meq PO BID Patient Comments: only when taking the lasix losartan 50 mg tablet 50 mg PO BID Qty: 180 4RF Xarelto 15 mg tablet 15 mg PO DINNER Qty: 30 11RF Rx Instructions: must administer with evening meal Held carvedilol 3.125 mg tablet 3.125 mg PO BID Qty: 60 11RF Hold Instructions: Hold until follows fire alarm operator Rx Instructions: must administer with a meal/food amiodarone 200 mg tablet 100 mg PO QDAY Qty: 60 11RF Hold Instructions: Hold until follows fire alarm operator Discontinued hydralazine 50 mg tablet 50 mg PO TID Qty: 90 11RF Referrals / Follow Up: [facility] [Provider Group, Cardiology] - 04/12/25 1:00 pm Referral Note: Appointment is with Treva Mendez RN Cardiac Device Nurse. Anay Barnard MD [Primary Care Provider, Internal Medicine] Disposition Disposition (needs filled in before D/C Order can be placed): Home, Self Care Charges/Coding Visit Charges Inpatient E&M: 35378 Disch Hosp >30min
--- NOTE | 2025-04-05 10:40 | PHA.DC_ITS ---
Pharmacy [facility] Service has performed discharge medication reconciliation and counseling for this patient. 1. NIFEDIPINE XL 60MG PO DAILY 2. HYDRALAZINE INCREASED TO 100MG 3. HOLD AMIODARONE AND CARVEDILOL The patient's discharge medication list was reviewed for discrepancies and discrepancies were resolved. The patient was counseled on the following discharge medications and changes in medications for homegoing were reviewed. The Reason for Use, instructions for use, and potential side effects were reviewed for all new medications. The patient's questions regarding all of their medications were answered. The patient was able to verbally demonstrate an understanding of their discharge medications. Medications at Discharge Home Medications atorvastatin 20 mg tablet 20 mg PO QODAY Cholesterol 12/06/16 timolol maleate 0.5 % eye drops 1 drp RIGHT EYE BID eye drops 12/06/16 brimonidine 0.15 % eye drops 1 drp ophthalmic (eye) BID eye health 03/25/22 levothyroxine 25 mcg tablet 25 mcg PO DAILY thyroid 03/25/22 losartan 50 mg tablet 50 mg PO BID bp #180 tabs 07/11/22 mecobalamin (vitamin B12) 1,000 mcg chewable tablet 1,000 mcg PO DAILY supplement 05/08/23 denosumab 60 mg/mL subcutaneous syringe (Prolia) 60 mg subcut [id number] bone health 08/20/23 ferrous sulfate 325 mg (65 mg iron) tablet (Feosol) 325 mg PO DAILY supplement 10/30/24 netarsudil 0.02 %-latanoprost 0.005 % eye drops (Rocklatan) 1 drp ophthalmic (eye) DAILY cataract 10/30/24 furosemide 20 mg tablet (Lasix) 20 mg PO .EOD edema 11/11/24 omeprazole 40 mg capsule,delayed release 40 mg PO DAILY gerd 11/11/24 carvedilol 3.125 mg tablet 3.125 mg PO BID #60 tabs 11/25/24 Held on 04/05/25. Instructions: Hold until follows classifications officer cc/cm cholecalciferol (vitamin D3) 50 mcg (2,000 unit) capsule 50 mcg PO QDAY supplement 11/25/24 amiodarone 200 mg tablet 100 mg (1/2 x 200 mg) PO QDAY #60 tabs 12/22/24 Held on 04/05/25. Instructions: Hold until follows classifications officer cc/cm Gemtesa 75 mg tablet (vibegron) 75 mg PO DAILY bladder #90 tabs 02/22/25 rivaroxaban 15 mg tablet (Xarelto) 15 mg PO DINNER blood thinner #30 tabs 03/27/25 potassium chloride 10 mEq capsule,extended release 10 meq PO BID low potassium 04/01/25 hydralazine 100 mg tablet 100 mg PO TID 1 month #90 tabs 04/05/25 nifedipine 60 mg tablet,extended release 24 hr 60 mg PO DAILY 30 days #30 tabs 04/05/25
--- NOTE | 2025-04-05 10:52 | CASEMGMT ---
Patient has order for discharge. RN CM in to discuss needs at discharge, brother at bedside. Patient denies needs or help at discharge. Patient had no further questions or concerns.
== END 2025-04-05 12:04 | disposition home or self-care (01) | DRG 243 ==
LOC: ED 12:55 → ICU 14:22 → PCU 04-04 09:40
PROVIDERS: Admitting Provider Student in an Organized Health Care Education/Training Program; Emergency Provider Emergency Medicine; PCP Internal Medicine; Visit Provider Internal Medicine
DX: I49.5 Sick sinus syndrome (principal); I13.0 Hypertensive heart and chronic kidney disease with heart failure and stage 1 through stage 4 chronic kidney disease, or unspecified chronic kidney disease; I50.32 Chronic diastolic (congestive) heart failure; Z66 Do not resuscitate; N18.9 Chronic kidney disease, unspecified; I48.91 Unspecified atrial fibrillation; R00.1 Bradycardia, unspecified; K21.9 Gastro-esophageal reflux disease without esophagitis; E78.5 Hyperlipidemia, unspecified; I16.0 Hypertensive urgency; I44.1 Atrioventricular block, second degree; B96.89 Other specified bacterial agents as the cause of diseases classified elsewhere; Z95.0 Presence of cardiac pacemaker; Z79.899 Other long term (current) drug therapy; Z79.01 Long term (current) use of anticoagulants; Z87.891 Personal history of nicotine dependence; Z82.49 Family history of ischemic heart disease and other diseases of the circulatory system
CPT/HCPCS: 33208; 36415; 71045; 71046; 80048; 84443; 84484; 85025; 87086; 87088; 87493; 87506; 93005; 97162; 97166; 97530; 97535; 99152; 99153; 99284; A4216; C1894; J1938

== ENCOUNTER → 2025-05-15 | Outpatient (CLI) | payer MEDICARE, SELFPAY ==
[2025-05-15 15:02] LABS: Hematocrit 33.8 % (37-47); Hemoglobin 11.0 g/dL (12.0-15.0); Immature Granulocytes Count 0.010 X10^3/uL (0.0-0.0); Mean Corp Hgb Conc 32.5 g/dL (32-36); Mean Corpuscular Volume 95.5 fL (81-99); Mean Platelet Vol. 10.1 fl (6.2-12.0); NRBC Flagged by Analyzer 0 % (0-5); Platelet Count 217 K/mm3 (150-450); RBC Distribution Width CV 14.1 % (11.6-14.6); RBC Distribution Width SD 49.5 fl (35.1-43.9); Red Blood Count 3.54 M/mm3 (4.2-5.4); White Blood Count 6.0 K/mm3 (4.4-11.0)
[2025-05-15 15:36] LABS: AST(SGOT) 27 U/L (<=31); Alanine Aminotransfer ALT/SGPT 21 U/L (<=34); Albumin, Serum 3.8 g/dL (3.4-4.8); Alkaline Phosphatase 48 U/L (35-104); Anion Gap 12 (5-15); BUN 16 mg/dL (4-19); BUN/Creat Ratio 10.8 RATIO (10-20); Calcium,Total 9.0 mg/dL (7.6-11.0); Carbon Dioxide 18.1 mmol/L (21.0-32.0); Chloride 108 mmol/L (98-108); Globulin 3.3 g/dL (2.2-4.2); Glucose 111 mg/dL (70-99); Potassium 4.3 mmol/L (3.3-5.1)
== END | disposition home or self-care (01) ==
LOC: MTLAB 13:17
PROVIDERS: PCP Internal Medicine; Referring Provider Internal Medicine Gastroenterology; Visit Provider Internal Medicine Gastroenterology
DX: D64.9 Anemia, unspecified (principal); R19.7 Diarrhea, unspecified
CPT/HCPCS: 36415; 80053; 85025

== ENCOUNTER → 2025-05-16 | Outpatient (CLI) | payer MEDICARE, SELFPAY ==
[2025-05-18 13:08] LABS: Giardia Lamblia, Stool EIA Negative (Negative)
[2025-05-20 02:07] LABS: Calprotectin, Stool 76 ug/g (0-120)
== END | disposition home or self-care (01) ==
LOC: MTLAB 12:48
PROVIDERS: PCP Internal Medicine; Referring Provider Internal Medicine Gastroenterology; Visit Provider Internal Medicine Gastroenterology
DX: R19.7 Diarrhea, unspecified (principal)
CPT/HCPCS: 82274; 83993; 87329; 87493

== ENCOUNTER → 2025-06-27 | Outpatient (CLI) | payer MEDICARE, SELFPAY ==
[2025-06-27 11:59] LABS: Hematocrit 42.3 % (37-47); Hemoglobin 13.5 g/dL (12.0-15.0); Immature Granulocytes Count 0.020 X10^3/uL (0.0-0.0); Mean Corp Hgb Conc 31.9 g/dL (32-36); Mean Corpuscular Volume 96.8 fL (81-99); Mean Platelet Vol. 9.7 fl (6.2-12.0); NRBC Flagged by Analyzer 0 % (0-5); Platelet Count 235 K/mm3 (150-450); RBC Distribution Width CV 13.7 % (11.6-14.6); RBC Distribution Width SD 49.3 fl (35.1-43.9); Red Blood Count 4.37 M/mm3 (4.2-5.4); White Blood Count 6.6 K/mm3 (4.4-11.0)
[2025-06-27 12:33] LABS: Ferritin 188 ng/mL (22-378); Iron 92 ug/dL (50-170); LDH 241 U/L (84-246)
[2025-06-28 16:09] LABS: Immunoglobulin A 127 mg/dL (64-422); Transferrin 225 mg/dL (149-313)
== END | disposition home or self-care (01) ==
LOC: LAB 11:41
PROVIDERS: PCP Internal Medicine; Referring Provider Internal Medicine Gastroenterology; Visit Provider Internal Medicine Gastroenterology
DX: D64.9 Anemia, unspecified (principal)
CPT/HCPCS: 36415; 82728; 82784; 83516; 83540; 83615; 84466; 85025; 86255